=== PATIENT | female | born 1950 | race Caucasian/White ===

== ENCOUNTER 2016-05-09 13:10 | Emergency (ER) | payer MEDICAID ==
[~2016-05-09] VITALS: Ht 167.6 cm; Wt 133.4 kg
[~2016-05-09 13:10] MED LIST: ACETAMINOPHEN-1 EAC1 ORAL; ACETAMINOPHEN-1 EAC1 PO; ALBUTEROL SULF8.5 GM INH; BACTRIM DS TAB1 EAC1 ORAL; BACTRIM-DS1 EA PO; CIPRO500 MG PO; CLINDAMYCIN HC300 MG ORAL; DOXYCYCLINE MO100 MG ORAL; ELIMITE 5% CREA60 GM TOPIC; HYDROCHLOROTHIA25 MG PO; IBUPROFEN600 MG PO; KEFLEX500 MG ORAL; KEPPRA500 MG PO; LAMISIL15 GM EXT; MILK OF MA400 MG/51 ORAL; NKM; PEPTO-BISMOL262 MG PO; UNOBMED; [UNRECOGNIZED DRUG - SUPPLY]; [UNRECOGNIZED DRUG - SUPPLY]
[2016-05-09 13:29] VITALS: BP 109/50
[2016-05-09] MEDS ORDERED: GI Cocktail 120ml ORAL ONE (15:15)
[2016-05-09] MEDS ORDERED: KETOCONAZOLE15 GM TOP (16:06)
[2016-05-09 16:17] VITALS: BP 114/63
[2016-05-09 17:05] VITALS: BP 114/63
--- NOTE | 2016-05-09 20:19 | Emergency Room Report ---
History of Present Illness General Chief Complaint: Abdominal Pain Source: Patient Present Illness HPI 65-year-old female complains of abdominal pain for over 2 weeks. Associated symptoms include generalized abdominal pain that improves with mylanta. Patient was worked up at 4 different hospitals which included labs and CT within the past few days and was discharge with Rx for Tylenol #3 and Keflex which she has not filled. Patient has hx of lymphedema of bilateral LE in addition and is requesting her wounds be changed in addition to having pain medication for her abd pain. Patient states she does not want a workup, labs, IV, or CT scan and only wants something for her pain. Allergies: Coded Allergies: HALOPERIDOL (Verified Allergy, Unknown, 01/28/09) HALOPERIDOL LACTATE (Unverified Allergy, 11/30/12) VANCOMYCIN (Unverified Adverse Reaction, Intermediate, Shortness of Breath , 06/26/13) Patient History Limited by: medical condition Past Medical History: see triage record, old chart reviewed Last Menstrual Period: na Now: No Reviewed Nursing Documentation: PMH: Agreed, PSxH: Agreed Nursing Documentation-PMH Past Medical History: No History, Except For Hx Cardiac Problems: No - CHF, EDEMA Hx Hypertension: Yes Hx Pacemaker: No Hx Asthma: No Hx COPD: Yes - BRONCHITIS Hx Diabetes: No Hx Cancer: No Hx Gastrointestinal Problems: No Hx Dialysis: No History Of Psychiatric Problem: Yes Hx Cerebrovascular Accident: No Hx Seizures: No Review of Systems All Other Systems: negative except mentioned in HPI Physical Exam Vital Signs Date Time Temp Pulse Resp B/P Pulse Ox O2 Delivery O2 Flow Rate FiO2 05/09/16 13:28 98.1 78 18 109/50 99 Room Air Sp02 EP Interpretation: reviewed, normal General Appearance: no apparent distress, alert, GCS 15, non-toxic, obese Head: normocephalic, atraumatic Eyes: bilateral eye PERRL, bilateral eye normal inspection ENT: hearing grossly normal, normal pharynx, no angioedema, normal voice Neck: full range of motion, supple/symm/no masses Respiratory: chest non-tender, lungs clear, normal breath sounds, speaking full sentences Cardiovascular #1: regular rate, rhythm, no edema Gastrointestinal: normal bowel sounds, soft, non-distended, no guarding, no rebound, tenderness - non-specific, hernia - small nonincarcerated retractible periumbilical hernia, overweight Rectal: deferred Genitourinary: normal inspection, no CVA tenderness Musculoskeletal: back normal, gait/station normal, normal range of motion, non- tender, swelling - bilateral LE 3+ edema with lymphedema and chronic skin changes Neurologic: alert, oriented x3, responsive, motor strength/tone normal, sensory intact, speech normal Psychiatric: judgement/insight normal, memory normal, mood/affect normal, no suicidal/homicidal ideation Skin: normal color, warm/dry, well hydrated, rash - erythematous patch within skin fold of underbelly Lymphatic: other - lymphedema bilateral LE Medical Decision Making PA Attestation Dr. Rubin is my supervising physician with whom patient management has been discussed with. Diagnostic Impression: Primary Impression: Change of dressing Additional Impressions: Tinea cruris Abdominal pain Qualified Codes: R10.84 - Generalized abdominal pain [facility] ER Course Pt. presents to the ED c/o [] Ddx considered but are not limited to [] Vital signs: are WNL, pt. is afebrile H&PE are most consistent with [] ORDERS: none required at this time, the diagnosis is clinical ED INTERVENTIONS: none required at this time. DISCHARGE: At this time pt. is stable for d/c to home. Will provide printed patient care instructions, and any necessary prescriptions. Care plan and follow up instructions have been discussed with the patient prior to discharge. Last Vital Signs Date Time Temp Pulse Resp B/P Pulse Ox O2 Delivery O2 Flow Rate FiO2 05/09/16 17:05 98.1 82 18 114/63 99 Room Air Disposition: HOME, SELF-CARE Condition: Improved Scripts Ketoconazole* (NIZORAL*) 15 Gm Cream..g. 1 APPLIC TOP BID for 14 Days, #60 GM Prov: KATERINA LITTLE 05/09/16 Referrals: NON PHYSICIAN (PCP) Patient Instructions: Cellulitis, Lymphedema, Abdominal Pain, Adult KATERINA LITTLE May 09, 2016 20:17
== END 2016-05-09 17:05 | disposition home or self-care (01) ==
LOC: EMR 14:58
DX: Z48.00 Encounter for change or removal of nonsurgical wound dressing (principal); R10.84 Generalized abdominal pain; B35.6 Tinea cruris; I89.0 Lymphedema, not elsewhere classified; I50.9 Heart failure, unspecified; I10 Essential (primary) hypertension; J44.9 Chronic obstructive pulmonary disease, unspecified
CPT/HCPCS: 99283

== ENCOUNTER 2016-07-30 19:21 | Inpatient (IN) | payer MEDICAID ==
[~2016-07-30] VITALS: Ht 172.7 cm; Wt 136.1 kg
[~2016-07-30 19:21] MED LIST changes: +KETOCONAZOLE15 GM TOP
[2016-07-30] MEDS ORDERED: Morphine Sulfate 4mg/ml Inj IVP ONE (20:15)
[2016-07-30 20:16] LABS: BASOPHILS % (AUTO) 0.9 % (0.0-2.0); EOSINOPHILS % (AUTO) 0.9 % (0.0-3.0); MEAN CORPUSCULAR HEMOGLOBIN 26.8 PG (27.0-31.0); MEAN CORPUSCULAR HGB CONC 33.5 G/DL (32.0-36.0); MEAN CORPUSCULAR VOLUME 80 FL (80-99); MEAN PLATELET VOLUME 6.7 FL (6.5-10.1); MONOCYTES % (AUTO) 6.6 % (1.0-10.0); NEUTROPHILS % (AUTO) 67.6 % (45.0-75.0); PLATELET COUNT 209 K/UL (150-450); RED BLOOD COUNT 3.62 M/UL (4.20-5.40); RED CELL DISTRIBUTION WIDTH 16.9 % (11.6-14.8)
[2016-07-30 20:30] LABS: TROPONIN I < 0.30 ng/mL (<=0.30)
[2016-07-30 20:33] LABS: ALANINE AMINOTRANSFERASE 6 U/L (3-33); ALBUMIN/GLOBULIN RATIO 0.8 (1.0-2.7); ANION GAP 14 (5-15); ASPARTATE AMINO TRANSFERASE 9 U/L (5-40); CALCIUM 9.2 mg/dL (8.6-10.2); CARBON DIOXIDE 27 mEQ/L (20-30); CHLORIDE 92 mEQ/L (98-107); CREATININE 0.9 mg/dL (0.5-0.9); GLOMERULAR FILTRATION RATE > 60 mL/min (>60); HEMOLYSIS 1; LIPASE 14 U/L (< 60); POTASSIUM 3.6 mEQ/L (3.4-4.9); SODIUM 133 mEQ/L (135-145); TOTAL PROTEIN 6.7 g/dL (6.6-8.7)
[2016-07-30 20:43] LABS: CKMB < 1.5 ng/mL (< 3.8)
[2016-07-30 20:51] VITALS: BP 116/75
[2016-07-30] MEDS ORDERED: Enalaprilat 2.5mg/2ml Inj IV PRN (22:00)
[2016-07-30] MEDS ORDERED: Nitroglycerin Subl 0.4mg tab (Bottle Of 25) SL PRN (22:00)
[2016-07-30] MEDS ORDERED: Diltiazem 25mg/5ml IV PRN (22:00)
[2016-07-30] MEDS ORDERED: Ketorolac 30mg Inj IV PRN (22:00)
[2016-07-30] MEDS ORDERED: DuoNeb 0.5-3(2.5)mg/3ml neb HHN PRN (22:00)
[2016-07-30] MEDS ORDERED: Aspirin Baby 81mg ORAL ONE (22:15)
--- NOTE | 2016-07-30 22:27 | Emergency Room Report ---
History of Present Illness General Chief Complaint: Chest Pain Source: Patient, EMS Present Illness HPI 65-year-old female presents ED complaining of chest pain. States pain is midsternal, sharp, 8/10, nonradiating. No other aggravating or relieving factors. Patient was given aspirin and nitro by EMS. States it only helped somewhat. Still has chest pain. Denies shortness of breath. Denies fevers or chills or cough. [place] [facility] [place] [facility] [place] for psychiatric complaints. [facility] No other aggravating or relieving factors. Denies any other associated symptom Allergies: Coded Allergies: HALOPERIDOL (Verified Allergy, Unknown, 01/28/09) HALOPERIDOL LACTATE (Unverified Allergy, Unknown, 07/30/16) VANCOMYCIN (Unverified Adverse Reaction, Intermediate, Shortness of Breath , 06/26/13) Patient History Past Medical History: HTN, COPD, psych hx Pertinent Family History: none Social History: Denies: alcohol use, drug use, smoking Now: No Immunizations: UTD Reviewed Nursing Documentation: PMH: Agreed, PSxH: Agreed Nursing Documentation-PMH Hx Hypertension: Yes Hx Pacemaker: No Hx Asthma: No Hx COPD: Yes Hx Diabetes: No Hx Cancer: No Hx Gastrointestinal Problems: No Hx Dialysis: No History Of Psychiatric Problem: Yes - DEPRESSION Hx Cerebrovascular Accident: No Hx Seizures: No Review of Systems All Other Systems: negative except mentioned in HPI Physical Exam Vital Signs Date Time Temp Pulse Resp B/P Pulse Ox O2 Delivery O2 Flow Rate FiO2 07/30/16 19:18 84 18 135/86 98 Room Air 07/30/16 19:45 3.0 Sp02 EP Interpretation: reviewed, normal General Appearance: no apparent distress, alert, GCS 15, non-toxic, obese Head: normocephalic, atraumatic Eyes: bilateral eye PERRL, bilateral eye normal inspection ENT: hearing grossly normal, normal pharynx, no angioedema, normal voice Neck: full range of motion, supple/symm/no masses Respiratory: chest non-tender, lungs clear, normal breath sounds, speaking full sentences Cardiovascular #1: regular rate, rhythm, no edema Cardiovascular #2: 2+ carotid (R), 2+ carotid (L), 2+ radial (R), 2+ radial (L) , 2+ dorsalis pedis (R), 2+ dorsalis pedis (L) Gastrointestinal: normal bowel sounds, non tender, soft, non-distended, no guarding, no rebound Rectal: deferred Genitourinary: normal inspection, no CVA tenderness Musculoskeletal: back normal, gait/station normal, normal range of motion, non- tender Neurologic: alert, oriented x3, responsive, motor strength/tone normal, sensory intact, speech normal Psychiatric: judgement/insight normal, memory normal, mood/affect normal, no suicidal/homicidal ideation Reflexes: 3+ bicep (R), 3+ bicep (L), 3+ tricep (R), 3+ tricep (L), 3+ knee (R) , 3+ knee (L) Skin: normal color, no rash, warm/dry, well hydrated Lymphatic: no adenopathy Medical Decision Making Diagnostic Impression: Primary Impression: ACS (acute coronary syndrome) ER Course Hospital Course 65-year-old female presents ED complaining of chest pain Differential diagnoses include: NM/unstable angina, contusion, muscle strain, PTX, rib fracture Clinical course Patient placed on stretcher. on post anesthesia room nurse. After initial history and physical I ordered labs, EKG, chest x-ray, ASA, morphine labs reviewed- no leukocytosis, hb/hct stable, electrolytes ok, trop negative EKG - NSR, no acute changes Chest x-ray- unremarkable Case discussed with Dr. Clarke and he agreed to accept the patient to his service for further care and support I. I feel this is a highly complex case requiring extensive working including EKG/Rhythm strip, Xray/CT/US, Blood/urine lab work, repeat exams while in ED, and administration of strong opiates/narcotics for pain control, admission to hospital or close patient follow up. Diagnosis - ACS admitted to telemetry in serious condition Labs Test 07/30/16 19:45 White Blood Count 6.0 K/UL (4.8-10.8) Red Blood Count 3.62 M/UL (4.20-5.40) Hemoglobin 9.7 G/DL (12.0-16.0) Hematocrit 29.0 % (37.0-47.0) Mean Corpuscular Volume 80 FL (80-99) Mean Corpuscular Hemoglobin 26.8 PG (27.0-31.0) Mean Corpuscular Hemoglobin Concent 33.5 G/DL (32.0-36.0) Red Cell Distribution Width 16.9 % (11.6-14.8) Platelet Count 209 K/UL (150-450) Mean Platelet Volume 6.7 FL (6.5-10.1) Neutrophils (%) (Auto) 67.6 % (45.0-75.0) Lymphocytes (%) (Auto) 24.0 % (20.0-45.0) Monocytes (%) (Auto) 6.6 % (1.0-10.0) Eosinophils (%) (Auto) 0.9 % (0.0-3.0) Basophils (%) (Auto) 0.9 % (0.0-2.0) Sodium Level 133 mEQ/L (135-145) Potassium Level 3.6 mEQ/L (3.4-4.9) Chloride Level 92 mEQ/L (98-107) Carbon Dioxide Level 27 mEQ/L (20-30) Anion Gap 14 (5-15) Blood Urea Nitrogen 16 mg/dL (7-23) Creatinine 0.9 mg/dL (0.5-0.9) Estimat Glomerular Filtration Rate > 60 mL/min (>60) Glucose Level 117 mg/dL (74-106) Calcium Level 9.2 mg/dL (8.6-10.2) Total Bilirubin 0.4 mg/dL (0.0-1.2) Aspartate Amino Transf (AST/SGOT) 9 U/L (5-40) Alanine Aminotransferase (ALT/SGPT) 6 U/L (3-33) Alkaline Phosphatase 157 U/L (35-104) Total Creatine Kinase 7 U/L (26-140) Creatine Kinase MB < 1.5 ng/mL (< 3.8) Creatine Kinase MB Relative Index Troponin I < 0.30 ng/mL (<=0.30) Total Protein 6.7 g/dL (6.6-8.7) Albumin 3.0 g/dL (3.5-5.2) Globulin 3.7 g/dL Albumin/Globulin Ratio 0.8 (1.0-2.7) Lipase 14 U/L (< 60) EKG Diagnostic Results Rate: normal Rhythm: NSR ST Segments: no acute changes ASA given to the pt in ED: Yes Rhythm Strip Diag. Results EP Interpretation: yes Rhythm: NSR, no PVC's, no ectopy Chest X-Ray Diagnostic Results EP Interpretation: Yes Findings: no consolidation, no effusion, no pneumothorax, no acute cardiopulmonary disease Number of Views: 1 Last Vital Signs Date Time Temp Pulse Resp B/P Pulse Ox O2 Delivery O2 Flow Rate FiO2 07/30/16 20:51 75 8 116/75 98 Nasal Cannula 3.0 Status: improved Disposition: ADMITTED INPATIENT Condition: Serious Referrals: [employer] [facility],REFERJEFERSON (PCP) GLORY CAMEJO M.D. Jul 30, 2016 22:27
[2016-07-31] VITALS (9 sets, daily range): BP systolic 99–151; BP diastolic 50–81
[2016-07-31] MEDS ORDERED: CARAFATE1 G1 ORAL (01:11)
[2016-07-31] MEDS ORDERED: CARDIZEM60 MG ORAL (01:11)
[2016-07-31] MEDS ORDERED: HYDRALAZINE HCL10 MG ORAL (01:11)
[2016-07-31] MEDS ORDERED: LORAZEPAM1 MG ORAL (01:12)
[2016-07-31] MEDS ORDERED: LEXAPRO10 MG ORAL (01:12)
[2016-07-31] MEDS: Morphine Sulfate 2mg/ml Inj IVP PRN ×5 (01:35→22:52)
[2016-07-31] MEDS ORDERED: Morphine Sulfate 2mg/ml Inj ONE (08:24)
[2016-07-31] MEDS: Aspirin Baby 81mg ORAL SCH ×2 (10:43→10:49)
[2016-07-31] MEDS: Heparin 5000 units/ml inj SUBQ SCH ×2 (10:46→21:00)
--- NOTE | 2016-07-31 12:08 | History and Physical ---
History of Present Illness General Date patient seen: Jul 31, 2016 Reason for Hospitalization: Chest Pain Present Illness HPI 65-year-old female with hx of COPD, CHF, elephantiasis of both lower extremities , nusing home resident presented to ED complaining of chest pain. Patient was given aspirin and nitro by EMS. The pain is midsternal, sharp, 8/10, nonradiating. No other aggravating or relieving factors. She is admitted to telemetry to rule out ACS Allergies: Coded Allergies: HALOPERIDOL (Verified Allergy, Unknown, 01/28/09) HALOPERIDOL LACTATE (Unverified Allergy, Unknown, 07/30/16) VANCOMYCIN (Unverified Adverse Reaction, Intermediate, Shortness of Breath , 06/26/13) Medication History Scheduled Diltiazem Hcl* (Cardizem*), 60 MG ORAL EVERY 8 HOURS, (Reported) Escitalopram Oxalate* (Lexapro*), 10 MG ORAL DAILY, (Reported) Hydralazine Hcl* (Hydralazine Hcl*), 10 MG ORAL EVERY 6 HOURS, (Reported) Lorazepam* (Lorazepam*), 1 MG ORAL THREE TIMES A DAY, (Reported) No Known Medications* (NKM - No Known Medications*), 0 ., (Reported) Sucralfate* (Carafate*), 1 GM ORAL FOUR TIMES A DAY, (Reported) Discontinued Medications Albuterol Sulfate* (Albuterol Sulfate Mdi*), 2 PUFF INH Q6H Discontinued Reason: Therapy completed Cephalexin* (Keflex*), 500 MG ORAL Q6H Discontinued Reason: Therapy completed Clindamycin Hcl (Clindamycin Hcl), 300 MG ORAL THREE TIMES A DAY Discontinued Reason: Therapy completed Ketoconazole* (Nizoral*), 1 APPLIC TOP BID Discontinued Reason: Therapy completed Terbinafine (Lamisil At), 15 GM EXT DAILY Discontinued Reason: Therapy completed Trimethoprim/Sulfamethoxazole 160/800* (Bactrim Ds Tablet*), 1 TAB ORAL Q12H Discontinued Reason: Therapy completed [taqueria wrap] Discontinued Reason: Therapy completed [medical tape] Discontinued Reason: Therapy completed Patient History Healthcare decision maker Resuscitation status Full Code Advanced Directive on File Past Medical/Surgical History Past Medical/Surgical History: (1) Lymphedema (2) Obesity (3) Essential hypertension Review of Systems Constitutional: Reports: malaise, weakness Physical Exam General Appearance: WD/WN Lines, tubes and drains: peripheral, central line HEENT: normocephalic, anicteric Neck: non-tender, supple Respiratory/Chest: chest wall non-tender, lungs clear Cardiovascular/Chest: normal peripheral pulses, regular rhythm Abdomen: normal bowel sounds, soft Extremities: severe edema - massive edema of both legs Last 24 Hour Vital Signs Date Time Temp Pulse Resp B/P Pulse Ox O2 Delivery O2 Flow Rate FiO2 07/31/16 11:18 98.3 85 20 130/73 98 Nasal Cannula 3.0 07/31/16 09:22 97.2 75 18 129/75 97 Room Air 07/31/16 07:42 98.7 71 11 107/67 100 Nasal Cannula 3.0 07/31/16 07:05 98.7 71 11 107/67 100 Nasal Cannula 3.0 07/31/16 05:43 98.7 62 11 126/72 98 Nasal Cannula 3.0 07/31/16 03:30 98.7 62 11 127/75 98 Nasal Cannula 3.0 07/31/16 02:05 98.7 07/31/16 01:42 62 8 116/75 98 Nasal Cannula 3.0 07/31/16 00:00 98.7 75 11 134/75 98 Nasal Cannula 3.0 07/30/16 20:51 75 8 116/75 98 Nasal Cannula 3.0 07/30/16 19:45 76 8 Nasal Cannula 3.0 07/30/16 19:18 84 18 135/86 98 Room Air Intake and Output 07/30/16 07/31/16 19:00 07:00 Intake Total 0 ml Balance 0 ml Intake Oral 0 ml Laboratory Tests Test 07/30/16 19:45 White Blood Count 6.0 K/UL (4.8-10.8) Red Blood Count 3.62 M/UL (4.20-5.40) L Hemoglobin 9.7 G/DL (12.0-16.0) L Hematocrit 29.0 % (37.0-47.0) L Mean Corpuscular Volume 80 FL (80-99) Mean Corpuscular Hemoglobin 26.8 PG (27.0-31.0) L Mean Corpuscular Hemoglobin Concent 33.5 G/DL (32.0-36.0) Red Cell Distribution Width 16.9 % (11.6-14.8) H Platelet Count 209 K/UL (150-450) Mean Platelet Volume 6.7 FL (6.5-10.1) Neutrophils (%) (Auto) 67.6 % (45.0-75.0) Lymphocytes (%) (Auto) 24.0 % (20.0-45.0) Monocytes (%) (Auto) 6.6 % (1.0-10.0) Eosinophils (%) (Auto) 0.9 % (0.0-3.0) Basophils (%) (Auto) 0.9 % (0.0-2.0) Sodium Level 133 mEQ/L (135-145) L Potassium Level 3.6 mEQ/L (3.4-4.9) Chloride Level 92 mEQ/L (98-107) L Carbon Dioxide Level 27 mEQ/L (20-30) Anion Gap 14 (5-15) Blood Urea Nitrogen 16 mg/dL (7-23) Creatinine 0.9 mg/dL (0.5-0.9) Estimat Glomerular Filtration Rate > 60 mL/min (>60) Glucose Level 117 mg/dL (74-106) H Calcium Level 9.2 mg/dL (8.6-10.2) Total Bilirubin 0.4 mg/dL (0.0-1.2) Aspartate Amino Transf (AST/SGOT) 9 U/L (5-40) Alanine Aminotransferase (ALT/SGPT) 6 U/L (3-33) Alkaline Phosphatase 157 U/L (35-104) H Total Creatine Kinase 7 U/L (26-140) L Creatine Kinase MB < 1.5 ng/mL (< 3.8) Creatine Kinase MB Relative Index Troponin I < 0.30 ng/mL (<=0.30) Total Protein 6.7 g/dL (6.6-8.7) Albumin 3.0 g/dL (3.5-5.2) L Globulin 3.7 g/dL Albumin/Globulin Ratio 0.8 (1.0-2.7) L Lipase 14 U/L (< 60) Height (Feet): 5 Height (Inches): 8.00 Weight (Pounds): 300 Medications Current Medications Medications (Trade) Dose Ordered Sig/Shiraz Route PRN Reason Start Time Stop Time Status Last Admin Dose Admin Acetaminophen (Tylenol) 650 mg Q4H PRN ORAL FEVER 07/30/16 22:00 08/29/16 21:59 Albuterol/ Ipratropium (DuoNeb 0.5-3(2.5)mg/3ml) 3 ml EVERY 4 HOURS PRN HHN Shortness of Breath 07/30/16 22:00 08/04/16 21:59 Aspirin (ASA) 162 mg DAILY ORAL 07/30/16 22:30 08/29/16 22:29 07/31/16 10:49 Diltiazem HCl (Cardizem) 10 mg EVERY HOUR PRN IV heart rate more than 120, 07/30/16 22:00 08/29/16 21:59 Enalaprilat (Vasotec) 2.5 mg EVERY 6 HOURS PRN IV sbp more than 160 07/30/16 22:00 08/29/16 21:59 Heparin Sodium (Porcine) (Heparin 5000 units/ml) 5,000 units EVERY 12 HOURS SUBQ 07/30/16 23:00 08/29/16 22:59 07/31/16 10:46 Ketorolac Tromethamine (Toradol 30mg) 30 mg Q6HR PRN IV moderate pain ( 4-6) 07/30/16 22:00 08/04/16 21:59 Morphine Sulfate (Morphine Sulfate) 2 mg EVERY 4 HOURS PRN IVP severe Pain (Pain Scale 7-10) 07/30/16 22:00 08/06/16 21:59 07/31/16 08:27 Nitroglycerin (Ntg) 0.4 mg Q5M PRN SL Prn Chest Pain 07/30/16 22:00 08/29/16 21:59 Ondansetron HCl (Zofran) 4 mg Q6H PRN IVP Nausea & Vomiting 07/30/16 22:00 08/29/16 21:59 07/31/16 10:43 Pantoprazole (Protonix) 40 mg DAILY ORAL 07/31/16 09:00 08/30/16 08:59 07/31/16 10:43 Polyethylene Glycol (Miralax) 17 gm DAILYPRN PRN ORAL Constipation 07/30/16 22:00 08/29/16 21:59 Temazepam (Restoril) 15 mg HSPRN PRN ORAL Insomnia 07/30/16 22:00 08/06/16 21:59 Assessment/Plan Problem List: (1) ACS (acute coronary syndrome) ICD Codes: I24.9 - Acute ischemic heart disease, unspecified SNOMED: 380368265 (2) Open wound of foot (3) Lymphedema (4) Chronic ulcer of leg ICD Codes: L97.909 - Non-prs chronic ulc unsp prt of unsp low leg w unsp severity SNOMED: 69903163 (5) Essential hypertension ICD Codes: I10 - Essential (primary) hypertension SNOMED: 36311846 Assessment/Plan serial ekg, troponin, cardiology wound care podiatry psychiatry RIC GONZALES Jul 31, 2016 12:07
[2016-07-31 15:59] LABS: CRP QUANT 9.7 mg/dL (< 0.5)
[2016-07-31 16:09] LABS: THYROID STIMULATING HORMONE 0.949 uIU/mL (0.300-4.500)
[2016-07-31 16:21] LABS: TROPONIN I < 0.30 ng/mL (<=0.30)
[2016-07-31 17:49] LABS: BASOPHILS % (AUTO) 0.8 % (0.0-2.0); EOSINOPHILS % (AUTO) 1.4 % (0.0-3.0); LYMPHOCYTES % (AUTO) 21.9 % (20.0-45.0); MEAN CORPUSCULAR HEMOGLOBIN 26.9 PG (27.0-31.0); MEAN CORPUSCULAR HGB CONC 32.7 G/DL (32.0-36.0); MEAN CORPUSCULAR VOLUME 82 FL (80-99); MEAN PLATELET VOLUME 6.8 FL (6.5-10.1); MONOCYTES % (AUTO) 4.8 % (1.0-10.0); NEUTROPHILS % (AUTO) 71.1 % (45.0-75.0); PLATELET COUNT 209 K/UL (150-450); RED BLOOD COUNT 3.39 M/UL (4.20-5.40); RED CELL DISTRIBUTION WIDTH 17.4 % (11.6-14.8); WHITE BLOOD COUNT 5.2 K/UL (4.8-10.8)
[2016-07-31] MEDS: Docusate 250mg cap ORAL SCH (18:06)
--- NOTE | 2016-07-31 18:26 | Cardiology Progress Note ---
Assessment/Plan Assessment/Plan [id number] Objective Last 24 Hour Vital Signs Date Time Temp Pulse Resp B/P Pulse Ox O2 Delivery O2 Flow Rate FiO2 07/31/16 15:30 96.3 65 18 99/50 100 Nasal Cannula 3.0 07/31/16 12:00 71 07/31/16 11:18 98.3 85 20 130/73 98 Nasal Cannula 3.0 07/31/16 09:22 97.2 75 18 129/75 97 Room Air 07/31/16 09:19 74 07/31/16 07:42 98.7 71 11 107/67 100 Nasal Cannula 3.0 07/31/16 07:05 98.7 71 11 107/67 100 Nasal Cannula 3.0 07/31/16 05:43 98.7 62 11 126/72 98 Nasal Cannula 3.0 07/31/16 03:30 98.7 62 11 127/75 98 Nasal Cannula 3.0 07/31/16 02:05 98.7 07/31/16 01:42 62 8 116/75 98 Nasal Cannula 3.0 07/31/16 00:00 98.7 75 11 134/75 98 Nasal Cannula 3.0 07/30/16 20:51 75 8 116/75 98 Nasal Cannula 3.0 07/30/16 19:45 76 8 Nasal Cannula 3.0 07/30/16 19:18 84 18 135/86 98 Room Air Intake and Output 07/30/16 07/31/16 19:00 07:00 Intake Total 0 ml Balance 0 ml Intake Oral 0 ml Laboratory Tests Test 07/30/16 19:45 07/31/16 13:04 07/31/16 14:38 White Blood Count 6.0 K/UL (4.8-10.8) 5.2 K/UL (4.8-10.8) Red Blood Count 3.62 M/UL (4.20-5.40) L 3.39 M/UL (4.20-5.40) L Hemoglobin 9.7 G/DL (12.0-16.0) L 9.1 G/DL (12.0-16.0) L Hematocrit 29.0 % (37.0-47.0) L 27.8 % (37.0-47.0) L Mean Corpuscular Volume 80 FL (80-99) 82 FL (80-99) Mean Corpuscular Hemoglobin 26.8 PG (27.0-31.0) L 26.9 PG (27.0-31.0) L Mean Corpuscular Hemoglobin Concent 33.5 G/DL (32.0-36.0) 32.7 G/DL (32.0-36.0) Red Cell Distribution Width 16.9 % (11.6-14.8) H 17.4 % (11.6-14.8) H Platelet Count 209 K/UL (150-450) 209 K/UL (150-450) Mean Platelet Volume 6.7 FL (6.5-10.1) 6.8 FL (6.5-10.1) Neutrophils (%) (Auto) 67.6 % (45.0-75.0) 71.1 % (45.0-75.0) Lymphocytes (%) (Auto) 24.0 % (20.0-45.0) 21.9 % (20.0-45.0) Monocytes (%) (Auto) 6.6 % (1.0-10.0) 4.8 % (1.0-10.0) Eosinophils (%) (Auto) 0.9 % (0.0-3.0) 1.4 % (0.0-3.0) Basophils (%) (Auto) 0.9 % (0.0-2.0) 0.8 % (0.0-2.0) Sodium Level 133 mEQ/L (135-145) L Potassium Level 3.6 mEQ/L (3.4-4.9) Chloride Level 92 mEQ/L (98-107) L Carbon Dioxide Level 27 mEQ/L (20-30) Anion Gap 14 (5-15) Blood Urea Nitrogen 16 mg/dL (7-23) Creatinine 0.9 mg/dL (0.5-0.9) Estimat Glomerular Filtration Rate > 60 mL/min (>60) Glucose Level 117 mg/dL (74-106) H Calcium Level 9.2 mg/dL (8.6-10.2) Total Bilirubin 0.4 mg/dL (0.0-1.2) Aspartate Amino Transf (AST/SGOT) 9 U/L (5-40) Alanine Aminotransferase (ALT/SGPT) 6 U/L (3-33) Alkaline Phosphatase 157 U/L (35-104) H Total Creatine Kinase 7 U/L (26-140) L Creatine Kinase MB < 1.5 ng/mL (< 3.8) Creatine Kinase MB Relative Index Troponin I < 0.30 ng/mL (<=0.30) < 0.30 ng/mL (<=0.30) Total Protein 6.7 g/dL (6.6-8.7) Albumin 3.0 g/dL (3.5-5.2) L Globulin 3.7 g/dL Albumin/Globulin Ratio 0.8 (1.0-2.7) L Lipase 14 U/L (< 60) Erythrocyte Sedimentation Rate Pending Reticulocyte Count Pending Prothrombin Time 10.0 SEC (9.30-11.50) Prothromb Time International Ratio 1.0 (0.9-1.1) Activated Partial Thromboplast Time 25 SEC (23-33) Iron Level 22 ug/dL (37-145) L Total Iron Binding Capacity 220 ug/dL (250-400) L Percent Iron Saturation 10 % (15-50) L Unsaturated Iron Binding 198 ug/dL (112-346) Lactate Dehydrogenase 133 U/L (135-230) L C-Reactive Protein, Quantitative 9.7 mg/dL (< 0.5) H Triglycerides Level 174 mg/dL (< 150) H Cholesterol Level 109 mg/dL (< 200) LDL Cholesterol 47 mg/dL (60-99) L HDL Cholesterol 27 mg/dL (> 60) Cholesterol/HDL Ratio 4.0 (3.3-4.4) Carcinoembryonic Antigen 0.9 ng/mL Vitamin B12 Level 499 pg/mL (211-946) Folate Pending Thyroid Stimulating Hormone (TSH) 0.949 uIU/mL (0.300-4.500) SJ BARRERA Jul 31, 2016 18:26
--- NOTE | 2016-07-31 19:48 | Consultation ---
Consult Note Consult Note PODIATRY CONSULTATION DATE: 07/31/16 REASON FOR CONSULT: Bilateral lower extremity edema COVERING FOR: Diego Osborn DPM HISTORY OF PRESENT ILLNESS: Patient is a 65 year old female transferred from [facility] for chest pain. Patient states history of chronic lymphedema. No reports of nausea, vomiting, fevers, or chills. Patient states no acute exacerbation of the lymphedema. She does not wear compression stockings PAST MEDICAL HISTORY: COPD, CHF, CHRONIC BILATERAL LOWER EXTREMITY LYMPHEDEMA SOCIAL, FAMILY, AND SURGICAL HISTORY: Patient is currently agitated and refuses to answer any more questions Allergies: Coded Allergies: HALOPERIDOL (Verified Allergy, Unknown, 01/28/09) HALOPERIDOL LACTATE (Unverified Allergy, Unknown, 07/30/16) VANCOMYCIN (Unverified Adverse Reaction, Intermediate, Shortness of Breath , 06/26/13) Objective Objective Exam Last 24 Hour Vital Signs Date Time Temp Pulse Resp B/P Pulse Ox O2 Delivery O2 Flow Rate FiO2 07/31/16 15:30 96.3 65 18 99/50 100 Nasal Cannula 3.0 07/31/16 12:00 71 07/31/16 11:18 98.3 85 20 130/73 98 Nasal Cannula 3.0 07/31/16 09:22 97.2 75 18 129/75 97 Room Air 07/31/16 09:19 74 07/31/16 07:42 98.7 71 11 107/67 100 Nasal Cannula 3.0 07/31/16 07:05 98.7 71 11 107/67 100 Nasal Cannula 3.0 07/31/16 05:43 98.7 62 11 126/72 98 Nasal Cannula 3.0 07/31/16 03:30 98.7 62 11 127/75 98 Nasal Cannula 3.0 07/31/16 02:05 98.7 07/31/16 01:42 62 8 116/75 98 Nasal Cannula 3.0 07/31/16 00:00 98.7 75 11 134/75 98 Nasal Cannula 3.0 07/30/16 20:51 75 8 116/75 98 Nasal Cannula 3.0 07/30/16 19:45 76 8 Nasal Cannula 3.0 Laboratory Tests Test 07/30/16 19:45 07/31/16 13:04 07/31/16 14:38 White Blood Count 6.0 K/UL (4.8-10.8) 5.2 K/UL (4.8-10.8) Red Blood Count 3.62 M/UL (4.20-5.40) L 3.39 M/UL (4.20-5.40) L Hemoglobin 9.7 G/DL (12.0-16.0) L 9.1 G/DL (12.0-16.0) L Hematocrit 29.0 % (37.0-47.0) L 27.8 % (37.0-47.0) L Mean Corpuscular Volume 80 FL (80-99) 82 FL (80-99) Mean Corpuscular Hemoglobin 26.8 PG (27.0-31.0) L 26.9 PG (27.0-31.0) L Mean Corpuscular Hemoglobin Concent 33.5 G/DL (32.0-36.0) 32.7 G/DL (32.0-36.0) Red Cell Distribution Width 16.9 % (11.6-14.8) H 17.4 % (11.6-14.8) H Platelet Count 209 K/UL (150-450) 209 K/UL (150-450) Mean Platelet Volume 6.7 FL (6.5-10.1) 6.8 FL (6.5-10.1) Neutrophils (%) (Auto) 67.6 % (45.0-75.0) 71.1 % (45.0-75.0) Lymphocytes (%) (Auto) 24.0 % (20.0-45.0) 21.9 % (20.0-45.0) Monocytes (%) (Auto) 6.6 % (1.0-10.0) 4.8 % (1.0-10.0) Eosinophils (%) (Auto) 0.9 % (0.0-3.0) 1.4 % (0.0-3.0) Basophils (%) (Auto) 0.9 % (0.0-2.0) 0.8 % (0.0-2.0) Sodium Level 133 mEQ/L (135-145) L Potassium Level 3.6 mEQ/L (3.4-4.9) Chloride Level 92 mEQ/L (98-107) L Carbon Dioxide Level 27 mEQ/L (20-30) Anion Gap 14 (5-15) Blood Urea Nitrogen 16 mg/dL (7-23) Creatinine 0.9 mg/dL (0.5-0.9) Estimat Glomerular Filtration Rate > 60 mL/min (>60) Glucose Level 117 mg/dL (74-106) H Calcium Level 9.2 mg/dL (8.6-10.2) Total Bilirubin 0.4 mg/dL (0.0-1.2) Aspartate Amino Transf (AST/SGOT) 9 U/L (5-40) Alanine Aminotransferase (ALT/SGPT) 6 U/L (3-33) Alkaline Phosphatase 157 U/L (35-104) H Total Creatine Kinase 7 U/L (26-140) L Creatine Kinase MB < 1.5 ng/mL (< 3.8) Creatine Kinase MB Relative Index Troponin I < 0.30 ng/mL (<=0.30) < 0.30 ng/mL (<=0.30) Total Protein 6.7 g/dL (6.6-8.7) Albumin 3.0 g/dL (3.5-5.2) L Globulin 3.7 g/dL Albumin/Globulin Ratio 0.8 (1.0-2.7) L Lipase 14 U/L (< 60) Erythrocyte Sedimentation Rate 120 MM/HR (0-30) H Reticulocyte Count 2.0 % (0.0-2.0) Prothrombin Time 10.0 SEC (9.30-11.50) Prothromb Time International Ratio 1.0 (0.9-1.1) Activated Partial Thromboplast Time 25 SEC (23-33) Iron Level 22 ug/dL (37-145) L Total Iron Binding Capacity 220 ug/dL (250-400) L Percent Iron Saturation 10 % (15-50) L Unsaturated Iron Binding 198 ug/dL (112-346) Lactate Dehydrogenase 133 U/L (135-230) L C-Reactive Protein, Quantitative 9.7 mg/dL (< 0.5) H Triglycerides Level 174 mg/dL (< 150) H Cholesterol Level 109 mg/dL (< 200) LDL Cholesterol 47 mg/dL (60-99) L HDL Cholesterol 27 mg/dL (> 60) Cholesterol/HDL Ratio 4.0 (3.3-4.4) Carcinoembryonic Antigen 0.9 ng/mL Vitamin B12 Level 499 pg/mL (211-946) Folate Pending Thyroid Stimulating Hormone (TSH) 0.949 uIU/mL (0.300-4.500) PHYSICAL EXAM: patient is currently agitated and refusing full physical exam. Therefore, physical exam was limited DERM: No open wounds noted. Hyperkeratosis and hyperpigmentation of bilateral lower extremities. Elongated toenails 1-5 bilaterally NEURO: Unable to assess sensation VASC: Bilateral lower extremities with severe lymphedema MSK: Unable to assess muscle strength Assessment/Plan BILATERAL LOWER EXTREMITY CHRONIC LYMPHEDEMA. Patient was agitated and refused full physical exam. There appeared to be severe lymphadema and hyperpigmented hyperkeratosis of bilateral lower extremities. No open wounds. Patient does not use compression stockings. Vascular studies are ordered and pending. If no DVT patient will benefit from compression therapy. Patient also appears to have poor hygiene of bilateral lower extremities. Cleanse bilateral lower extremities and apply A&D ointment. Offload heels if patient remains in bed for the majority of the day. Patient had dytrophic elongated toenails but did not want them trimmed at this time. Berny Watkins DPM Jul 31, 2016 19:48
[2016-07-31] MEDS: Miralax 17gm pkt ORAL PRN (22:46)
[2016-07-31 22:49] LABS: TROPONIN I < 0.30 ng/mL (<=0.30)
[2016-08-01] VITALS: BP 150/97
--- NOTE | 2016-08-01 00:59 | Consultation ---
DATE OF CONSULTATION: 07/31/2016 CARDIOLOGY CONSULTATION REFERRING PHYSICIAN: Lilibeth Clarke M.D. REASON FOR REFERRAL: Chest pain. HISTORY OF PRESENT ILLNESS: This is a 65-year-old female with multiple medical problems. The patient is somewhat of a poor historian, who [facility], presented to the [facility] because of complaints of chest pain and shortness of breath. She indicates the pain is across the chest, upper and mid abdomen as well as the back. It is been present now for the past one hour, but she has had this pain on prior occasions. It does get worse when she takes a deep breath, cough, or touching the area. She has no shortness of breath. No PND. No orthopnea. No palpitations or dizziness. PAST MEDICAL HISTORY: According to the records from [facility], it is positive history of congestive heart failure, essential hypertension, superficial bruising, unsteadiness of the feet, edema, sepsis, secondary cellulitis, bronchitis, and chronic obstructive pulmonary disease. SOCIAL HISTORY: She smoked before, but does not at the present time and does not drink alcoholic beverages. ALLERGIES: She is allergic to Haldol. REVIEW OF SYSTEMS: Gastrointestinal: She denies any nausea, vomiting, or diarrhea. Does have some abdominal pain. Genitourinary: Does not have discomfort on urination. Pulmonary: Occasional coughing and wheezing. Constitutional: No fevers, chills, or night sweats. Neurological: Negative. PHYSICAL EXAMINATION: GENERAL: Shows to be morbidly obese elderly female, in no respiratory distress, rather unkempt. NECK: Supple. No jugular venous distention. LUNGS: Clear to auscultation and percussion. CARDIAC: S1 is normal. S2 is normal. Regular rate and rhythm. No heaves. No thrills. No gallops. No rubs are noted. ABDOMEN: Soft and obese. Positive bowel sounds. There is tenderness to palpation of the chest wall and upper abdomen. No guarding. No rigidity. EXTREMITIES: There are chronic venous stasis changes, skin thickening, and of the lower extremities of significant degree. NEUROLOGICAL: She is awake, alert, and responsive, in no apparent respiratory distress. LABORATORY VALUES: White count of 5.3, hemoglobin 9.1, and platelet count of 209,000. Troponins are negative on two separate occasions since yesterday and her sodium at the time of admission 133,000, potassium 3.6, chloride 92, bicarbonate of 27, BUN of 16, creatinine 0.9, and glucose of 117. ProBNP was not measured and lipase was 14. Coagulations, INR of 1.0 yesterday and PTT of 25. Chest x-ray has not been performed or available for review yet. The patient's electrocardiogram shows normal sinus rhythm, delay in R-wave progression, may be lead placement, and/or obesity or an old anterior infarction that need to be further evaluated. ASSESSMENT: 1. Chest pain with history of the same. No evidence of myonecrosis. No ST-segment changes to suggest coronary syndrome. 2. Obesity. 3. Reported history of congestive heart failure. 4. Reported history of essential hypertension. 5. Chronic obstructive pulmonary disease history. 6. Edema. 7. History of cellulitis. PLAN: This patient was seen in cardiac consultation. The patient should continue to have serial enzymes and EKGs checked, echocardiogram should be ordered, venous duplex of upper and lower extremities should be performed, and D-dimer will be considered. Param Soto M.D. DR: SRIKANTH JOB#: [id number] CC:
[2016-08-01] MEDS: Morphine Sulfate 2mg/ml Inj IVP PRN ×2 (03:25→08:07)
[2016-08-01 04:00] VITALS: BP 147/86
[2016-08-01 07:59] VITALS: BP 131/53
[2016-08-01] MEDS: Aspirin Baby 81mg ORAL SCH (08:07)
[2016-08-01] MEDS: Miralax 17gm pkt ORAL PRN ×2 (08:07→08:12)
[2016-08-01] MEDS: Heparin 5000 units/ml inj SUBQ SCH ×2 (08:08→20:26)
[2016-08-01] MEDS: Docusate 250mg cap ORAL SCH (08:08)
--- NOTE | 2016-08-01 09:43 | Infectious Diseases Prog Note ---
Assessment/Plan Assessment/Plan ID consult dictated # [id number] Subjective Allergies: Coded Allergies: HALOPERIDOL (Verified Allergy, Unknown, 01/28/09) HALOPERIDOL LACTATE (Unverified Allergy, Unknown, 07/30/16) VANCOMYCIN (Unverified Adverse Reaction, Intermediate, Shortness of Breath , 06/26/13) Objective Vital Signs Last 24 Hour Vital Signs Date Time Temp Pulse Resp B/P Pulse Ox O2 Delivery O2 Flow Rate FiO2 08/01/16 07:59 97.0 100 20 131/53 97 Nasal Cannula 3.0 08/01/16 04:00 97.9 90 20 147/86 100 Nasal Cannula 3.0 08/01/16 04:00 86 08/01/16 00:00 83 08/01/16 00:00 97.9 79 18 150/97 100 Nasal Cannula 3.0 07/31/16 20:00 94 07/31/16 20:00 97.9 80 18 151/81 100 Nasal Cannula 3.0 07/31/16 16:00 68 07/31/16 15:30 96.3 65 18 99/50 100 Nasal Cannula 3.0 07/31/16 12:00 71 07/31/16 11:18 98.3 85 20 130/73 98 Nasal Cannula 3.0 Height (Feet): 5 Height (Inches): 8.00 Weight (Pounds): 300 Laboratory Tests Test 07/31/16 13:04 07/31/16 14:38 07/31/16 22:00 White Blood Count 5.2 K/UL (4.8-10.8) Red Blood Count 3.39 M/UL (4.20-5.40) L Hemoglobin 9.1 G/DL (12.0-16.0) L Hematocrit 27.8 % (37.0-47.0) L Mean Corpuscular Volume 82 FL (80-99) Mean Corpuscular Hemoglobin 26.9 PG (27.0-31.0) L Mean Corpuscular Hemoglobin Concent 32.7 G/DL (32.0-36.0) Red Cell Distribution Width 17.4 % (11.6-14.8) H Platelet Count 209 K/UL (150-450) Mean Platelet Volume 6.8 FL (6.5-10.1) Neutrophils (%) (Auto) 71.1 % (45.0-75.0) Lymphocytes (%) (Auto) 21.9 % (20.0-45.0) Monocytes (%) (Auto) 4.8 % (1.0-10.0) Eosinophils (%) (Auto) 1.4 % (0.0-3.0) Basophils (%) (Auto) 0.8 % (0.0-2.0) Erythrocyte Sedimentation Rate 120 MM/HR (0-30) H Reticulocyte Count 2.0 % (0.0-2.0) Prothrombin Time 10.0 SEC (9.30-11.50) Prothromb Time International Ratio 1.0 (0.9-1.1) Activated Partial Thromboplast Time 25 SEC (23-33) Iron Level 22 ug/dL (37-145) L Total Iron Binding Capacity 220 ug/dL (250-400) L Percent Iron Saturation 10 % (15-50) L Unsaturated Iron Binding 198 ug/dL (112-346) Lactate Dehydrogenase 133 U/L (135-230) L Troponin I < 0.30 ng/mL (<=0.30) < 0.30 ng/mL (<=0.30) C-Reactive Protein, Quantitative 9.7 mg/dL (< 0.5) H Triglycerides Level 174 mg/dL (< 150) H Cholesterol Level 109 mg/dL (< 200) LDL Cholesterol 47 mg/dL (60-99) L HDL Cholesterol 27 mg/dL (> 60) Cholesterol/HDL Ratio 4.0 (3.3-4.4) Carcinoembryonic Antigen 0.9 ng/mL Vitamin B12 Level 499 pg/mL (211-946) Folate Pending Thyroid Stimulating Hormone (TSH) 0.949 uIU/mL (0.300-4.500) Current Medications Medications (Trade) Dose Ordered Sig/Shiraz Route PRN Reason Start Time Stop Time Status Last Admin Dose Admin Acetaminophen (Tylenol) 650 mg Q4H PRN ORAL FEVER 07/30/16 22:00 08/29/16 21:59 Albuterol/ Ipratropium (DuoNeb 0.5-3(2.5)mg/3ml) 3 ml EVERY 4 HOURS PRN HHN Shortness of Breath 07/30/16 22:00 08/04/16 21:59 Aspirin (ASA) 162 mg DAILY ORAL 07/30/16:30 08/29/16 22:29 08/01/16 08:07 Diltiazem HCl (Cardizem) 10 mg EVERY HOUR PRN IV heart rate more than 120, 07/30/16 22:00 08/29/16 21:59 Docusate Sodium (Colace) 250 mg DAILY ORAL 07/31/16 18:00 08/30/16 17:59 08/01/16 08:08 Enalaprilat (Vasotec) 2.5 mg EVERY 6 HOURS PRN IV sbp more than 160 07/30/16 22:00 08/29/16 21:59 Heparin Sodium (Porcine) (Heparin 5000 units/ml) 5,000 units EVERY 12 HOURS SUBQ 07/30/16 23:00 08/29/16 22:59 07/31/16 10:46 Ketorolac Tromethamine (Toradol 30mg) 30 mg Q6HR PRN IV moderate pain ( 4-6) 07/30/16 22:00 08/04/16 21:59 Morphine Sulfate (Morphine Sulfate) 2 mg EVERY 4 HOURS PRN IVP severe Pain (Pain Scale 7-10) 07/30/16 22:00 08/06/16 21:59 08/01/16 08:07 Nitroglycerin (Ntg) 0.4 mg Q5M PRN SL Prn Chest Pain 07/30/16 22:00 08/29/16 21:59 Ondansetron HCl (Zofran) 4 mg Q6H PRN IVP Nausea & Vomiting 07/30/16 22:00 08/29/16 21:59 07/31/16 10:43 Pantoprazole (Protonix) 40 mg DAILY ORAL 07/31/16 09:00 08/30/16 08:59 08/01/16 08:07 Polyethylene Glycol (Miralax) 17 gm DAILYPRN PRN ORAL Constipation 07/30/16 22:00 08/29/16 21:59 07/31/16 22:46 Temazepam (Restoril) 15 mg HSPRN PRN ORAL Insomnia 07/30/16 22:00 08/06/16 21:59 PREETHI HOLLOWAY Aug 01, 2016 09:43
[2016-08-01 11:30] VITALS: BP 162/85
[2016-08-01] MEDS: Morphine Sulfate 10mg/ml Inj IVP PRN ×3 (12:56→21:37)
[2016-08-01 15:26] LABS: APPEARANCE,URINE SLIGHTLY CLOUDY; KETONES,URINE 1+ (NEGATIVE); LEUKOCYTE ESTERASE ,URINE 3+ (NEGATIVE); NITRITE,URINE NEGATIVE (NEGATIVE); PH,URINE 5 (4.5-8.0); PROTEIN,URINE 2+ (NEGATIVE); UROBILINOGEN,URINE NORMAL MG/DL (0.0-1.0)
[2016-08-01 15:27] VITALS: BP 149/74
[2016-08-01 15:39] LABS: AMORPHOUS SEDIMENT,UR FEW /LPF; BACTERIA,URINE MANY /HPF; RBC,URINE 15-20 /HPF (0 - 2); SQUAMOUS EPITHELIAL CELL,UR FEW /LPF (NONE/OCC)
--- NOTE | 2016-08-01 17:04 | Cardiology Progress Note ---
Assessment/Plan Assessment/Plan 1. Chronic obstructive pulmonary disease with exacerbation. 2. History of diastolic dysfunction. 3. Acute renal failure. 4. Morbid obesity. 5. Sleep apnea, on CPAP at home. 6. Hypertension history. 7. Hyperlipidemia. ekg non ischemic trop all neg echo prelim norla lv fucntion awiat cxr adn venous duplex and d dimer Subjective Cardiovascular: Reports: chest pain, Denies: lightheadedness, palpitations Respiratory: Reports: shortness of breath Gastrointestinal/Abdominal: Denies: abdominal pain Genitourinary: Denies: burning Objective Last 24 Hour Vital Signs Date Time Temp Pulse Resp B/P Pulse Ox O2 Delivery O2 Flow Rate FiO2 08/01/16 15:27 97.7 84 18 149/74 97 Nasal Cannula 3.0 08/01/16 12:00 83 08/01/16 11:30 97.2 85 19 162/85 98 Nasal Cannula 3.0 08/01/16 08:00 88 08/01/16 07:59 97.0 100 20 131/53 97 Nasal Cannula 3.0 08/01/16 04:00 97.9 90 20 147/86 100 Nasal Cannula 3.0 08/01/16 04:00 86 08/01/16 00:00 83 08/01/16 00:00 97.9 79 18 150/97 100 Nasal Cannula 3.0 07/31/16 20:00 94 07/31/16 20:00 97.9 80 18 151/81 100 Nasal Cannula 3.0 General Appearance: no apparent distress, alert Neck: supple Cardiovascular: normal rate, regular rhythm Respiratory/Chest: lungs clear, normal breath sounds Abdomen: normal bowel sounds, non tender, soft Extremities: no swelling Intake and Output 07/31/16 08/01/16 19:00 07:00 Intake Total 360 ml Balance 360 ml Intake Oral 360 ml # Voids 2 Laboratory Tests Test 07/31/16 22:00 08/01/16 11:35 Troponin I < 0.30 ng/mL (<=0.30) Urine Color Yellow Urine Appearance Slightly cloudy Urine pH 5 (4.5-8.0) Urine Specific [place] 1.025 (1.005-1.035) Urine Protein 2+ (NEGATIVE) H Urine Glucose (UA) Negative (NEGATIVE) Urine Ketones 1+ (NEGATIVE) H Urine Occult Blood 4+ (NEGATIVE) H Urine Nitrite Negative (NEGATIVE) Urine Bilirubin Negative (NEGATIVE) Urine Urobilinogen Normal MG/DL (0.0-1.0) Urine Leukocyte Esterase 3+ (NEGATIVE) H Urine RBC 15-20 /HPF (0 - 2) H Urine WBC 10-15 /HPF (0 - 2) H Urine Squamous Epithelial Cells Few /LPF (NONE/OCC) Urine Amorphous Sediment Few /LPF (NONE) H Urine Bacteria Many /HPF (NONE) H SJ BARRERA Aug 01, 2016 17:04
--- NOTE | 2016-08-01 18:19 | Podiatric Progress Note ---
Assessment/Plan Patient Charisse Couch is a 65 year old female who was admitted on Jul 30, 2016 at 21:23 with chest pain Problems: (1) Lymphedema (2) Onychomycosis Assessment/Plan BILATERAL CHRONIC LOWER EXTREMITY LYMPHEDEMA. Vascular studies pending. If no DVT patient will benefit from compression therapy with using compression stockings. PAINFUL MYCOTIC TOENAILS. Debrided toenails x 10 BILATERAL LOWER EXTREMITY POOR HYGIENE. Patient will benefit from cleansing of bilateral lower extremities and application of moisturizer Subjective Allergies: Coded Allergies: HALOPERIDOL (Verified Allergy, Unknown, 01/28/09) HALOPERIDOL LACTATE (Unverified Allergy, Unknown, 07/30/16) VANCOMYCIN (Unverified Adverse Reaction, Intermediate, Shortness of Breath , 06/26/13) Subjective Patient states she is doing better today. No current chest pain. No nausea, vomiting, fevers, or chills. No pedal complaints at this time Objective Exam Last 24 Hour Vital Signs Date Time Temp Pulse Resp B/P Pulse Ox O2 Delivery O2 Flow Rate FiO2 08/01/16 15:27 97.7 84 18 149/74 97 Nasal Cannula 3.0 08/01/16 12:00 83 08/01/16 11:30 97.2 85 19 162/85 98 Nasal Cannula 3.0 08/01/16 08:00 88 08/01/16 07:59 97.0 100 20 131/53 97 Nasal Cannula 3.0 08/01/16 04:00 97.9 90 20 147/86 100 Nasal Cannula 3.0 08/01/16 04:00 86 08/01/16 00:00 83 08/01/16 00:00 97.9 79 18 150/97 100 Nasal Cannula 3.0 07/31/16 20:00 94 07/31/16 20:00 97.9 80 18 151/81 100 Nasal Cannula 3.0 Laboratory Tests Test 07/31/16 22:00 08/01/16 11:35 Troponin I < 0.30 ng/mL (<=0.30) Urine Color Yellow Urine Appearance Slightly cloudy Urine pH 5 (4.5-8.0) Urine Specific [place] 1.025 (1.005-1.035) Urine Protein 2+ (NEGATIVE) H Urine Glucose (UA) Negative (NEGATIVE) Urine Ketones 1+ (NEGATIVE) H Urine Occult Blood 4+ (NEGATIVE) H Urine Nitrite Negative (NEGATIVE) Urine Bilirubin Negative (NEGATIVE) Urine Urobilinogen Normal MG/DL (0.0-1.0) Urine Leukocyte Esterase 3+ (NEGATIVE) H Urine RBC 15-20 /HPF (0 - 2) H Urine WBC 10-15 /HPF (0 - 2) H Urine Squamous Epithelial Cells Few /LPF (NONE/OCC) Urine Amorphous Sediment Few /LPF (NONE) H Urine Bacteria Many /HPF (NONE) H Exam Narrative No open wounds. Bilateral lower extremities with severe lymphedema and poor hygiene with crusty hyperpigmented skin. Toenails are thick, discolored, and elongated. Berny Watkins DPM Aug 01, 2016 18:19
--- NOTE | 2016-08-01 18:41 | Pulmonology Progress Note ---
Assessment/Plan Problems: (1) ACS (acute coronary syndrome) (2) Open wound of foot (3) Lymphedema (4) Chronic ulcer of leg (5) Essential hypertension Assessment/Plan all notes reviewed zosyn added to cover UTI no sign of ischemic heart disease f/y by cardio f/u urine cultures Subjective ROS Limited/Unobtainable: No Interval Events: no new complains Allergies: Coded Allergies: HALOPERIDOL (Verified Allergy, Unknown, 01/28/09) HALOPERIDOL LACTATE (Unverified Allergy, Unknown, 07/30/16) VANCOMYCIN (Unverified Adverse Reaction, Intermediate, Shortness of Breath , 06/26/13) Objective Last 24 Hour Vital Signs Date Time Temp Pulse Resp B/P Pulse Ox O2 Delivery O2 Flow Rate FiO2 08/01/16 15:27 97.7 84 18 149/74 97 Nasal Cannula 3.0 08/01/16 12:00 83 08/01/16 11:30 97.2 85 19 162/85 98 Nasal Cannula 3.0 08/01/16 08:00 88 08/01/16 07:59 97.0 100 20 131/53 97 Nasal Cannula 3.0 08/01/16 04:00 97.9 90 20 147/86 100 Nasal Cannula 3.0 08/01/16 04:00 86 08/01/16 00:00 83 08/01/16 00:00 97.9 79 18 150/97 100 Nasal Cannula 3.0 07/31/16 20:00 94 07/31/16 20:00 97.9 80 18 151/81 100 Nasal Cannula 3.0 Intake and Output 07/31/16 08/01/16 19:00 07:00 Intake Total 360 ml Balance 360 ml Intake Oral 360 ml # Voids 2 Objective General Appearance: WD/WN HEENT: normocephalic, atraumatic Respiratory/Chest: chest wall non-tender, lungs clear Cardiovascular: normal peripheral pulses, normal rate, regular rhythm Abdomen: normal bowel sounds, soft, non tender, no organomegaly Extremities: extreme elephantiasis Skin: no rash, no lesions Laboratory Tests 07/31/16 22:00: Troponin I < 0.30 08/01/16 11:35: Urine Color Yellow, Urine Appearance Slightly cloudy, Urine pH 5, Urine Specific [place] 1.025, Urine Protein 2+H, Urine Glucose (UA) Negative, Urine Ketones 1+H, Urine Occult Blood 4+H, Urine Nitrite Negative, Urine Bilirubin Negative, Urine Urobilinogen Normal, Urine Leukocyte Esterase 3+H, Urine RBC 15- 20H, Urine WBC 10-15H, Urine Squamous Epithelial Cells Few, Urine Amorphous Sediment FewH, Urine Bacteria ManyH Current Medications Medications (Trade) Dose Ordered Sig/Shiraz Route PRN Reason Start Time Stop Time Status Last Admin Dose Admin Acetaminophen (Tylenol) 650 mg Q4H PRN ORAL FEVER 07/30/16 22:00 08/29/16 21:59 08/01/16 15:46 Albuterol/ Ipratropium (DuoNeb 0.5-3(2.5)mg/3ml) 3 ml EVERY 4 HOURS PRN HHN Shortness of Breath 07/30/16 22:00 08/04/16 21:59 Aspirin (ASA) 162 mg DAILY ORAL 07/30/16 22:30 08/29/16 22:29 08/01/16 08:07 Diltiazem HCl (Cardizem) 10 mg EVERY HOUR PRN IV heart rate more than 120, 07/30/16 22:00 08/29/16 21:59 Docusate Sodium (Colace) 250 mg DAILY ORAL 07/31/16 18:00 08/30/16 17:59 08/01/16 08:08 Enalaprilat (Vasotec) 2.5 mg EVERY 6 HOURS PRN IV sbp more than 160 07/30/16 22:00 08/29/16 21:59 Heparin Sodium (Porcine) (Heparin 5000 units/ml) 5,000 units EVERY 12 HOURS SUBQ 07/30/16 23:00 08/29/16 22:59 07/31/16 10:46 Ketorolac Tromethamine (Toradol 30mg) 30 mg Q6HR PRN IV moderate pain ( 4-6) 07/30/16 22:00 08/04/16 21:59 Morphine Sulfate (Morphine Sulfate) 6 mg Q4H PRN IVP For Pain 08/01/16 10:00 08/08/16 09:59 08/01/16 17:17 Nitroglycerin (Ntg) 0.4 mg Q5M PRN SL Prn Chest Pain 07/30/16 22:00 08/29/16 21:59 Ondansetron HCl (Zofran) 4 mg Q6H PRN IVP Nausea & Vomiting 07/30/16 22:00 08/29/16 21:59 07/31/16 10:43 Pantoprazole (Protonix) 40 mg DAILY ORAL 07/31/16 09:00 08/30/16 08:59 08/01/16 08:07 Polyethylene Glycol (Miralax) 17 gm DAILYPRN PRN ORAL Constipation 07/30/16 22:00 08/29/16 21:59 07/31/16 22:46 Temazepam (Restoril) 15 mg HSPRN PRN ORAL Insomnia 07/30/16 22:00 08/06/16 21:59 RIC GONZALES Aug 01, 2016 18:41
--- NOTE | 2016-08-01 19:06 | Cardiology Report ---
APPROVED REPORT EXAM: Two-dimensional and M-mode echocardiogram with Doppler and color Doppler. INDICATION Left ventricular function M-Mode DIMENSIONS IVSd0.8 (0.7-1.1cm)Left Atrium (MM)5.9 (1.6-4.0cm) LVDd4.8 (3.5-5.6cm)Aortic Root2.7 (2.0-3.7cm) PWd1.1 (0.7-1.1cm)Aortic Cusp Exc.2.0 (1.5-2.0cm) LVDs2.2 (2.5-4.0cm) PWs1.8 cm Normal left ventricular chamber size, systolic function and wall motion. Left ventricular ejection fraction estimated to be 60-65%. No evidence of left ventricular hypertrophy. No evidence of pericardial fat or effusion. Right cardiac chamber sizes are within normal limits. Mild left atrial enlargement by 2D. Focal aortic valve sclerosis poorly visualized Thickened mitral valve leaflets with normal excursion. Mitral annulus and aortic root calcification. Pulmonic valve not well visualized. Normal tricuspid valve structure. IVC is normal in size with physiologic collapse. A color flow and spectral Doppler study was performed and revealed: No aortic regurgitation. No mitral regurgitation. Left ventricular diastolic dysfunction grade 1. No tricuspid regurgitation. Tricuspid systolic velocities suggests peak right ventricular systolic pressure of 18 mmHg
[2016-08-01] MEDS ORDERED: Piperacillin/Tazobactam 3.375 GM in D5W 110 ML IVPB SCH (20:00)
--- NOTE | 2016-08-01 21:18 | Consultation ---
DATE OF CONSULTATION: 08/01/2016 CONSULTING PHYSICIAN: Jamie Ivy M.D. PRIMARY ATTENDING: Lilibeth Clarke M.D. REFERRING PHYSICIAN: Lilibeth Clarke M.D REASON FOR CONSULTATION: Leg cellulitis. HISTORY OF PRESENT ILLNESS: This is a 65-year-old white female, who was admitted on 07/30/2016 from half-way facility complaining of chest pain. The patient's chest pain was not very typical and was seen by literacy consultant. She does not have any ST changes, elevation in troponin. She also has chronic lymphedema and elephantiasis of the legs. PAST MEDICAL HISTORY: Hypertension, COPD, depression, elephantiasis of the legs, morbid obesity, CHF, and anemia. ALLERGIES: Allergic to haloperidol and vancomycin. MEDICATIONS: Colace, Protonix, heparin, aspirin, DuoNeb inhaler, nitroglycerin, Tylenol, ketorolac, morphine, Zofran, temazepam, enalaprilat, and Cardizem. SOCIAL HISTORY: She is a long term resident. The patient is currently sleeping and cannot provide more history. PHYSICAL EXAMINATION: VITAL SIGNS: Temperature is 97, pulse is 100, and blood pressure is 131/53. GENERAL APPEARANCE: Seems obese. HEAD AND NECK: Normocephalic. HEART: Tachycardic. LUNGS: Has few rhonchi bilaterally. ABDOMEN: Obese and soft. EXTREMITIES: Bilateral lymphedema. Bilateral chronic ischemic changes with hyperkeratotic lesions. LABORATORY DATA: WBC 5.2, hemoglobin 9.1, hematocrit 27.8, and platelets are 209,000. Sodium 133, potassium 3.6, chloride 92, bicarbonate 27, BUN 16, creatinine 0.9, and glucose 117. Alkaline phosphatase 157. AST and ALT were normal. IMPRESSION: 1. Chronic lymphedema of legs and cellulitis. The patient was seen by watch engine operator that ordered vascular studies. The patient had chest pain that was found to be atypical. 2. Morbid obesity. 3. Anemia. 4. Congestive heart failure. 5. Depression. 6. Chronic obstructive pulmonary disease. RECOMMENDATIONS: I will observe off antibiotic. We will follow up on vacular studies. At the end of my exam, I thank Dr. Clarke for involving me in the care of this patient. Jamie Ivy M.D. DR: SOLITARIO JOB#: [id number] CC: ALEXANDREA
[2016-08-01 21:56] VITALS: BP 140/84
[2016-08-02 00:12] VITALS: BP 177/92
[2016-08-02] MEDS: Morphine Sulfate 10mg/ml Inj IVP PRN ×5 (02:52→22:38)
[2016-08-02 04:09] VITALS: BP 141/75
[2016-08-02] MEDS: Piperacillin/Tazobactam 3.375 GM in D5W 110 ML IVPB SCH ×3 (06:02→22:37)
[2016-08-02 08:00] VITALS: BP 143/83
[2016-08-02] MEDS: Aspirin Baby 81mg ORAL SCH (08:33)
[2016-08-02] MEDS: Miralax 17gm pkt ORAL PRN (08:33)
[2016-08-02] MEDS: Docusate 250mg cap ORAL SCH (08:33)
[2016-08-02] MEDS: Heparin 5000 units/ml inj SUBQ SCH ×2 (08:34→21:00)
[2016-08-02 09:31] LABS: TROPONIN I < 0.30 ng/mL (<=0.30)
--- NOTE | 2016-08-02 09:42 | Diagnostic Imaging Report ---
Indications: Chest pain Technique: Portable AP chest Findings: Comparison: 06/25/13 Inspiratory effort has decreased. Cardiac silhouette remains enlarged. Pulmonary vascular redistribution, bilateral interstitial infiltrates have decreased. Elevation of the apparent left hemidiaphragm. No definite pleural abnormality. IMPRESSION: Decrease in to resolution of previous bilateral congestive changes. Residual disease may be acute or chronic. Stable cardiomegaly Development of elevation apparent left hemidiaphragm may be secondary to pulmonary parenchymal volume loss, subpulmonic pleural effusion, or subdiaphragmatic process
--- NOTE | 2016-08-02 10:50 | Infectious Diseases Prog Note ---
Assessment/Plan Assessment/Plan A: This is a 65-year-old white female Leg cellulitis UCx : GNR Echo : EF 60% chronic lymphedema and elephantiasis of the legs HTN COPD Depression Morbid obesity CHF Anemia IMPRESSION: pt on IV Zosyn d# 2 monitor CBC monitor BMP monitor UCx monitor Cxray Subjective Constitutional: Denies: anorexia, chills, drenching sweats, fatigue, fever, no symptoms, other Allergies: Coded Allergies: HALOPERIDOL (Verified Allergy, Unknown, 01/28/09) HALOPERIDOL LACTATE (Unverified Allergy, Unknown, 07/30/16) VANCOMYCIN (Unverified Adverse Reaction, Intermediate, Shortness of Breath , 06/26/13) Objective Vital Signs Last 24 Hour Vital Signs Date Time Temp Pulse Resp B/P Pulse Ox O2 Delivery O2 Flow Rate FiO2 08/02/16 08:00 98.1 88 18 143/83 98 Room Air 08/02/16 08:00 71 08/02/16 04:09 98.3 71 18 141/75 94 Room Air 08/02/16 04:00 72 08/02/16 00:12 98.4 72 18 177/92 97 Room Air 08/02/16 00:00 66 08/01/16 21:56 98.6 74 18 140/84 94 Room Air 08/01/16 20:00 71 08/01/16 16:00 70 08/01/16 15:27 97.7 84 18 149/74 97 Nasal Cannula 3.0 08/01/16 12:00 83 08/01/16 11:30 97.2 85 19 162/85 98 Nasal Cannula 3.0 Height (Feet): 5 Height (Inches): 8.00 Weight (Pounds): 300 HEENT: atraumatic Respiratory/Chest: normal breath sounds Cardiovascular: regular rhythm Abdomen: soft, non tender Microbiology Date/Time Source Procedure Growth Status 08/01/16 11:35 Urine,Clean Catch Urine Culture - Preliminary Gram Negative Bacillus 1 Resulted 07/31/16 06:25 Rectum VRE Culture - Final Enterococcus Faecium - Vre Enterococcus Faecalis - Vre Complete Laboratory Tests Test 08/01/16 11:35 08/02/16 08:50 Urine Color Yellow Urine Appearance Slightly cloudy Urine pH 5 (4.5-8.0) Urine Specific [place] 1.025 (1.005-1.035) Urine Protein 2+ (NEGATIVE) H Urine Glucose (UA) Negative (NEGATIVE) Urine Ketones 1+ (NEGATIVE) H Urine Occult Blood 4+ (NEGATIVE) H Urine Nitrite Negative (NEGATIVE) Urine Bilirubin Negative (NEGATIVE) Urine Urobilinogen Normal MG/DL (0.0-1.0) Urine Leukocyte Esterase 3+ (NEGATIVE) H Urine RBC 15-20 /HPF (0 - 2) H Urine WBC 10-15 /HPF (0 - 2) H Urine Squamous Epithelial Cells Few /LPF (NONE/OCC) Urine Amorphous Sediment Few /LPF (NONE) H Urine Bacteria Many /HPF (NONE) H D-Dimer 2052 ng/mL (<500) H Troponin I < 0.30 ng/mL (<=0.30) Pro-B-Type Natriuretic Peptide 851 pg/mL (0-125) H Current Medications Medications (Trade) Dose Ordered Sig/Shiraz Route PRN Reason Start Time Stop Time Status Last Admin Dose Admin Acetaminophen (Tylenol) 650 mg Q4H PRN ORAL FEVER 07/30/16 22:00 08/29/16 21:59 08/01/16 15:46 Albuterol/ Ipratropium (DuoNeb 0.5-3(2.5)mg/3ml) 3 ml EVERY 4 HOURS PRN HHN Shortness of Breath 07/30/16 22:00 08/04/16 21:59 Aspirin (ASA) 162 mg DAILY ORAL 07/30/16 22:30 08/29/16 22:29 08/02/16 08:33 Diltiazem HCl (Cardizem) 10 mg EVERY HOUR PRN IV heart rate more than 120, 07/30/16 22:00 08/29/16 21:59 Docusate Sodium (Colace) 250 mg DAILY ORAL 07/31/16 18:00 08/30/16 17:59 08/02/16 08:33 Enalaprilat (Vasotec) 2.5 mg EVERY 6 HOURS PRN IV sbp more than 160 07/30/16 22:00 08/29/16 21:59 Heparin Sodium (Porcine) (Heparin 5000 units/ml) 5,000 units EVERY 12 HOURS SUBQ 07/30/16 23:00 08/29/16 22:59 08/02/16 08:34 Ketorolac Tromethamine (Toradol 30mg) 30 mg Q6HR PRN IV moderate pain ( 4-6) 07/30/16 22:00 08/04/16 21:59 Morphine Sulfate 6 mg 6 mg Q4H PRN IVP For Pain 08/01/16 10:00 08/08/16 09:59 08/02/16 08:39 Nitroglycerin (Ntg) 0.4 mg Q5M PRN SL Prn Chest Pain 07/30/16 22:00 08/29/16 21:59 Ondansetron HCl (Zofran) 4 mg Q6H PRN IVP Nausea & Vomiting 07/30/16 22:00 08/29/16 21:59 07/31/16 10:43 Pantoprazole (Protonix) 40 mg DAILY ORAL 07/31/16 09:00 08/30/16 08:59 08/02/16 08:33 Piperacillin Sod/ Tazobactam Sod/ Dextrose (Zosyn/D5W) 110 ml @ 27.5 mls/hr EVERY 8 HOURS IVPB 08/02/16 06:00 08/09/16 05:59 08/02/16 06:02 Polyethylene Glycol (Miralax) 17 gm DAILYPRN PRN ORAL Constipation 07/30/16 22:00 08/29/16 21:59 08/02/16 08:33 Temazepam (Restoril) 15 mg HSPRN PRN ORAL Insomnia 07/30/16 22:00 08/06/16 21:59 PINA SALTER M.D. Aug 02, 2016 10:50
[2016-08-02 12:00] VITALS: BP 146/91
--- NOTE | 2016-08-02 12:56 | Pulmonology Progress Note ---
Assessment/Plan Problems: (1) ACS (acute coronary syndrome) (2) Open wound of foot (3) Lymphedema (4) Chronic ulcer of leg (5) Essential hypertension Assessment/Plan all notes reviewed zosyn added to cover UTI no sign of ischemic heart disease f/y by cardio f/u urine cultures continue zosyn f/u cardio and iD recommendations Subjective ROS Limited/Unobtainable: No Constitutional: Reports: no symptoms HEENT: Repors: no symptoms Respiratory: Reports: no symptoms Allergies: Coded Allergies: HALOPERIDOL (Verified Allergy, Unknown, 01/28/09) HALOPERIDOL LACTATE (Unverified Allergy, Unknown, 07/30/16) VANCOMYCIN (Unverified Adverse Reaction, Intermediate, Shortness of Breath , 06/26/13) Objective Last 24 Hour Vital Signs Date Time Temp Pulse Resp B/P Pulse Ox O2 Delivery O2 Flow Rate FiO2 08/02/16 08:00 98.1 88 18 143/83 98 Room Air 08/02/16 08:00 71 08/02/16 04:09 98.3 71 18 141/75 94 Room Air 08/02/16 04:00 72 08/02/16 00:12 98.4 72 18 177/92 97 Room Air 08/02/16 00:00 66 08/01/16 21:56 98.6 74 18 140/84 94 Room Air 08/01/16 20:00 71 08/01/16 16:00 70 08/01/16 15:27 97.7 84 18 149/74 97 Nasal Cannula 3.0 Intake and Output 08/01/16 08/02/16 19:00 07:00 Intake Total 460 ml 110.0 ml Balance 460 ml 110.0 ml Intake Oral 460 ml IV Total 110.0 ml # Voids 2 2 Objective General Appearance: WD/WN HEENT: normocephalic, atraumatic Respiratory/Chest: chest wall non-tender, lungs clear Cardiovascular: normal peripheral pulses, normal rate, regular rhythm Abdomen: normal bowel sounds, soft, non tender, no organomegaly Extremities: extreme elephantiasis Skin: no rash, no lesions Microbiology Date/Time Source Procedure Growth Status 08/01/16 11:35 Urine,Clean Catch Urine Culture - Preliminary Gram Negative Bacillus 1 Resulted 07/31/16 06:25 Rectum VRE Culture - Final Enterococcus Faecium - Vre Enterococcus Faecalis - Vre Complete Laboratory Tests 08/02/16 08:50: D-Dimer 2052H, Troponin I < 0.30, Pro-B-Type Natriuretic Peptide 851H Current Medications Medications (Trade) Dose Ordered Sig/Shiraz Route PRN Reason Start Time Stop Time Status Last Admin Dose Admin Acetaminophen (Tylenol) 650 mg Q4H PRN ORAL FEVER 07/30/16 22:00 08/29/16 21:59 08/01/16 15:46 Albuterol/ Ipratropium (DuoNeb 0.5-3(2.5)mg/3ml) 3 ml EVERY 4 HOURS PRN HHN Shortness of Breath 07/30/16 22:00 08/04/16 21:59 Aspirin (ASA) 162 mg DAILY ORAL 07/30/16 22:30 08/29/16 22:29 08/02/16 08:33 Diltiazem HCl (Cardizem) 10 mg EVERY HOUR PRN IV heart rate more than 120, 07/30/16 22:00 08/29/16 21:59 Docusate Sodium (Colace) 250 mg DAILY ORAL 07/31/16 18:00 08/30/16 17:59 08/02/16 08:33 Enalaprilat (Vasotec) 2.5 mg EVERY 6 HOURS PRN IV sbp more than 160 07/30/16 22:00 08/29/16 21:59 Heparin Sodium (Porcine) (Heparin 5000 units/ml) 5,000 units EVERY 12 HOURS SUBQ 07/30/16 23:00 08/29/16 22:59 08/02/16 08:34 Iron Sucrose/ Sodium Chloride (Venofer/Sodium Chloride) 60 ml @ 240 mls/hr BEDTIME IVPB 08/02/16 21:00 08/06/16 21:14 UNV Ketorolac Tromethamine (Toradol 30mg) 30 mg Q6HR PRN IV moderate pain ( 4-6) 07/30/16 22:00 08/04/16 21:59 Morphine Sulfate 6 mg 6 mg Q4H PRN IVP For Pain 08/01/16 10:00 08/08/16 09:59 08/02/16 08:39 Nitroglycerin (Ntg) 0.4 mg Q5M PRN SL Prn Chest Pain 07/30/16 22:00 08/29/16 21:59 Ondansetron HCl (Zofran) 4 mg Q6H PRN IVP Nausea & Vomiting 07/30/16 22:00 08/29/16 21:59 07/31/16 10:43 Pantoprazole (Protonix) 40 mg DAILY ORAL 07/31/16 09:00 08/30/16 08:59 08/02/16 08:33 Piperacillin Sod/ Tazobactam Sod 3.375 gm/Dextrose 110 ml @ 27.5 mls/hr EVERY 8 HOURS IVPB 08/02/16 06:00 08/09/16 05:59 08/02/16 06:02 Polyethylene Glycol (Miralax) 17 gm DAILYPRN PRN ORAL Constipation 07/30/16 22:00 08/29/16 21:59 08/02/16 08:33 Temazepam (Restoril) 15 mg HSPRN PRN ORAL Insomnia 07/30/16 22:00 08/06/16 21:59 RIC GONZALES Aug 02, 2016 12:56
--- NOTE | 2016-08-02 15:30 | Wound Care Consultation ---
Wound Assessment Wound Assessment #1: Wound Number: #1 Wound Present on Admission: Yes New Wound: No Status Change of Wound: No Wound Location Body Site Modif: left Wound Location Body Site: sacral Wound Type: blister Radha Test: Does not Radha Wound Thickness: Partial Thickness Wound Length: 3.0 Wound Width: 3.0 Wound Depth: utd Percent of Wound [place]/Red: 100 Wound Drainage Amount: None Wound Drainage Odor: None/Absent Tissue Surrounding Wound: Indurated Wound General Appearance: Asymptomatic Wound Assessment #2: Wound Number: #2 Wound Present on Admission: Yes New Wound: No Status Change of Wound: No Wound Location Body Site Modif: right Wound Location Body Site: sacral Wound Type: blister Radha Test: Does not Radha Wound Thickness: Partial Thickness Wound Length: 3.0 Wound Width: 3.0 Wound Depth: utd Percent of Wound [place]/Red: 100 Wound Drainage Amount: None Wound Drainage Odor: None/Absent Tissue Surrounding Wound: Indurated Wound Assessment #3: Wound Number: #3 Wound Present on Admission: Yes New Wound: No Status Change of Wound: No Wound Location Body Site Modif: left, lower Wound Location Body Site: leg Wound Type: other - lymphedema Wound Drainage Amount: None Wound Drainage Odor: None/Absent Tissue Surrounding Wound: plaque,crusty, hyperpigmentation. Wound General Appearance: Open to air Wound Assessment #4: Wound Number: #4 Wound Present on Admission: Yes New Wound: No Status Change of Wound: No Wound Location Body Site Modif: right, lower Wound Location Body Site: leg Wound Type: other - Lymphedema Wound Drainage Amount: None Wound Drainage Odor: None/Absent Tissue Surrounding Wound: plaque,crusty,hyperpigmentation. Wound General Appearance: Open to air Wound Comment #1 left sacral blister. #2 right sacral blister. #3 left and right lower extremities lymphedema with dry yellow plaque and crust surrounded with hyperpigmentation. Recommendation. - Local wound care as ordered. - Turn and reposition. -Keep clean and dry. -Optimize nutrition. -Apply low air loss overlay SPR mattress. - Assess and notify MD for any changes of condition in skin. ANJELICA YOUSIF Aug 02, 2016 15:30
--- NOTE | 2016-08-02 19:44 | Cardiology Progress Note ---
Assessment/Plan Assessment/Plan 1. Chronic obstructive pulmonary disease with exacerbation. 2. History of diastolic dysfunction. 3. Acute renal failure. 4. Morbid obesity. 5. Sleep apnea, on CPAP at home. 6. Hypertension history. 7. Hyperlipidemia. ekg non ischemic trop all neg echo norla lv fucntion refused agreed to venosuduplex prelin ki refused agreend then refused v/q refused blood draws dc off tele jeison ehwen ok with dr bedolla Subjective Cardiovascular: Reports: chest pain - some , lightheadedness - some Respiratory: Reports: shortness of breath - some Gastrointestinal/Abdominal: Reports: abdominal pain - pito e Genitourinary: Denies: burning Objective Last 24 Hour Vital Signs Date Time Temp Pulse Resp B/P Pulse Ox O2 Delivery O2 Flow Rate FiO2 08/02/16 16:00 69 08/02/16 12:00 97.4 81 18 146/91 Nasal Cannula 2.0 100 08/02/16 12:00 73 08/02/16 08:00 98.1 88 18 143/83 98 Room Air 08/02/16 08:00 71 08/02/16 04:09 98.3 71 18 141/75 94 Room Air 08/02/16 04:00 72 08/02/16 00:12 98.4 72 18 177/92 97 Room Air 08/02/16 00:00 66 08/01/16 21:56 98.6 74 18 140/84 94 Room Air 08/01/16 20:00 71 General Appearance: no apparent distress, alert Neck: supple Cardiovascular: normal rate, regular rhythm Respiratory/Chest: lungs clear, normal breath sounds Abdomen: normal bowel sounds, non tender, soft Extremities: moderate edema Intake and Output 08/01/16 08/02/16 19:00 07:00 Intake Total 460 ml 110.0 ml Balance 460 ml 110.0 ml Intake Oral 460 ml IV Total 110.0 ml # Voids 2 2 Laboratory Tests Test 08/02/16 08:50 D-Dimer 2052 ng/mL (<500) H Troponin I < 0.30 ng/mL (<=0.30) Pro-B-Type Natriuretic Peptide 851 pg/mL (0-125) H Microbiology Date/Time Source Procedure Growth Status 08/01/16 11:35 Urine,Clean Catch Urine Culture - Preliminary Gram Negative Bacillus 1 Resulted 07/31/16 06:25 Rectum VRE Culture - Final Enterococcus Faecium - Vre Enterococcus Faecalis - Vre Complete SJ BARRERA Aug 02, 2016 19:44
[2016-08-02 20:35] VITALS: BP 159/75
[2016-08-02] MEDS: Vitamin A&D Oint 2oz Tube TOPIC SCH (21:10)
[2016-08-02] MEDS: Iron Sucrose 100 MG in NS 55 ML IVPB SCH (21:10)
[2016-08-03 00:16] VITALS: BP 163/66
[2016-08-03] MEDS: Morphine Sulfate 10mg/ml Inj IVP PRN ×5 (03:51→20:54)
[2016-08-03 03:53] VITALS: BP 157/93
[2016-08-03] MEDS: Piperacillin/Tazobactam 3.375 GM in D5W 110 ML IVPB SCH (06:31)
[2016-08-03] MEDS: Aspirin Baby 81mg ORAL SCH (08:08)
[2016-08-03] MEDS: Docusate 250mg cap ORAL SCH (08:08)
[2016-08-03] MEDS: Vitamin A&D Oint 2oz Tube TOPIC SCH ×2 (08:09→21:00)
[2016-08-03] MEDS: Heparin 5000 units/ml inj SUBQ SCH ×2 (08:11→20:59)
[2016-08-03 08:23] VITALS: BP 150/77
--- NOTE | 2016-08-03 09:57 | Infectious Diseases Prog Note ---
Assessment/Plan Assessment/Plan A: This is a 65-year-old white female Leg cellulitis improved UCx : ESBL EColi ( colonizer ) no symptoms psoriasis Echo : EF 60% chronic lymphedema and elephantiasis of the legs HTN COPD Depression Morbid obesity CHF Anemia IMPRESSION: DC IV Zosyn d# 3 ,and monitor pt off of AB Rx monitor CBC monitor BMP monitor Cxray Subjective Constitutional: Denies: anorexia, chills, drenching sweats, fatigue, fever, no symptoms, other Allergies: Coded Allergies: HALOPERIDOL (Verified Allergy, Unknown, 01/28/09) HALOPERIDOL LACTATE (Unverified Allergy, Unknown, 07/30/16) VANCOMYCIN (Unverified Adverse Reaction, Intermediate, Shortness of Breath , 06/26/13) Objective Vital Signs Last 24 Hour Vital Signs Date Time Temp Pulse Resp B/P Pulse Ox O2 Delivery O2 Flow Rate FiO2 08/03/16 08:43 97.0 08/03/16 08:23 97.0 71 20 150/77 98 Nasal Cannula 2.0 08/03/16 07:35 68 08/03/16 04:00 80 08/03/16 03:53 98.2 84 18 157/93 98 Nasal Cannula 08/03/16 00:16 98.8 77 19 163/66 96 Nasal Cannula 08/03/16 00:00 75 08/02/16 20:35 98.6 80 18 159/75 100 Nasal Cannula 08/02/16 20:00 76 08/02/16 16:00 69 08/02/16 12:00 97.4 81 18 146/91 Nasal Cannula 2.0 100 08/02/16 12:00 73 Height (Feet): 5 Height (Inches): 8.00 Weight (Pounds): 300 HEENT: anicteric Respiratory/Chest: normal breath sounds Cardiovascular: no gallop/murmur Abdomen: no mass Microbiology Date/Time Source Procedure Growth Status 08/01/16 11:35 Urine,Clean Catch Urine Culture - Final Escherichia Coli - Esbl Complete Current Medications Medications (Trade) Dose Ordered Sig/Shiraz Route PRN Reason Start Time Stop Time Status Last Admin Dose Admin Acetaminophen (Tylenol) 650 mg Q4H PRN ORAL FEVER 07/30/16 22:00 08/29/16 21:59 08/01/16 15:46 Albuterol/ Ipratropium (DuoNeb 0.5-3(2.5)mg/3ml) 3 ml EVERY 4 HOURS PRN HHN Shortness of Breath 07/30/16 22:00 08/04/16 21:59 Aspirin (ASA) 162 mg DAILY ORAL 07/30/16 22:30 08/29/16 22:29 08/03/16 08:08 Diltiazem HCl (Cardizem) 10 mg EVERY HOUR PRN IV heart rate more than 120, 07/30/16 22:00 08/29/16 21:59 Docusate Sodium (Colace) 250 mg DAILY ORAL 07/31/16 18:00 08/30/16 17:59 08/03/16 08:08 Enalaprilat (Vasotec) 2.5 mg EVERY 6 HOURS PRN IV sbp more than 160 07/30/16 22:00 08/29/16 21:59 Heparin Sodium (Porcine) (Heparin 5000 units/ml) 5,000 units EVERY 12 HOURS SUBQ 07/30/16 23:00 08/29/16 22:59 08/03/16 08:11 Iron Sucrose/ Sodium Chloride (Venofer/Sodium Chloride) 60 ml @ 240 mls/hr BEDTIME IVPB 08/02/16 21:00 08/06/16 21:14 08/02/16 21:10 Ketorolac Tromethamine (Toradol 30mg) 30 mg Q6HR PRN IV moderate pain ( 4-6) 07/30/16 22:00 08/04/16 21:59 Morphine Sulfate 6 mg 6 mg Q4H PRN IVP For Pain 08/01/16 10:00 08/08/16 09:59 08/03/16 08:13 Nitroglycerin (Ntg) 0.4 mg Q5M PRN SL Prn Chest Pain 07/30/16 22:00 08/29/16 21:59 Ondansetron HCl (Zofran) 4 mg Q6H PRN IVP Nausea & Vomiting 07/30/16 22:00 08/29/16 21:59 07/31/16 10:43 Pantoprazole (Protonix) 40 mg DAILY ORAL 07/31/16 09:00 08/30/16 08:59 08/03/16 08:08 Piperacillin Sod/ Tazobactam Sod 3.375 gm/Dextrose 110 ml @ 27.5 mls/hr EVERY 8 HOURS IVPB 08/02/16 06:00 08/09/16 05:59 08/03/16 06:31 Polyethylene Glycol (Miralax) 17 gm DAILYPRN PRN ORAL Constipation 07/30/16 22:00 08/29/16 21:59 08/02/16 08:33 Temazepam (Restoril) 15 mg HSPRN PRN ORAL Insomnia 07/30/16 22:00 08/06/16 21:59 Vitamin A/Vitamin D (A & D Oint) 1 applic EVERY 12 HOURS TOPIC 08/02/16 21:00 09/01/16 20:59 08/03/16 08:09 PINA SALTER M.D. Aug 03, 2016 09:56
--- NOTE | 2016-08-03 10:37 | Cardiology Progress Note ---
Assessment/Plan Assessment/Plan 1. Chronic obstructive pulmonary disease with exacerbation. 2. History of diastolic dysfunction. 3. Acute renal failure. 4. Morbid obesity. 5. Sleep apnea, on CPAP at home. 6. Hypertension history. 7. Hyperlipidemia. ekg non ischemic trop all neg echo norla lv fucntion refused then agreed to venosuduplex final neg refused , then agreed then refused v/q again refused blood draws dc off tele home when ok with dr bedolla Subjective Cardiovascular: Reports: chest pain - some , Denies: lightheadedness Respiratory: Reports: shortness of breath - some Gastrointestinal/Abdominal: Reports: abdominal pain - some Genitourinary: Denies: burning Subjective per pt she has had these sx contrantly for a whiel Objective Last 24 Hour Vital Signs Date Time Temp Pulse Resp B/P Pulse Ox O2 Delivery O2 Flow Rate FiO2 08/03/16 08:43 97.0 08/03/16 08:23 97.0 71 20 150/77 98 Nasal Cannula 2.0 08/03/16 07:35 68 08/03/16 04:00 80 08/03/16 03:53 98.2 84 18 157/93 98 Nasal Cannula 08/03/16 00:16 98.8 77 19 163/66 96 Nasal Cannula 08/03/16 00:00 75 08/02/16 20:35 98.6 80 18 159/75 100 Nasal Cannula 08/02/16 20:00 76 08/02/16 16:00 69 08/02/16 12:00 97.4 81 18 146/91 Nasal Cannula 2.0 100 08/02/16 12:00 73 General Appearance: alert Cardiovascular: normal rate, regular rhythm Respiratory/Chest: lungs clear Abdomen: normal bowel sounds, non tender, soft Extremities: moderate edema Intake and Output 08/02/16 08/03/16 19:00 07:00 Intake Total 460.0 ml 350.0 ml Balance 460.0 ml 350.0 ml Intake Oral 240 ml IV Total 220.0 ml 350.0 ml # Voids 1 3 Microbiology Date/Time Source Procedure Growth Status 08/01/16 11:35 Urine,Clean Catch Urine Culture - Final Escherichia Coli - Esbl Complete SJ BARRERA Aug 03, 2016 10:37
[2016-08-03] MEDS ORDERED: NS 275ml ONE (10:44)
[2016-08-03] MEDS ORDERED: Tubing IV Secondary IV ONE (10:44)
[2016-08-03 11:39] VITALS: BP 135/85
[2016-08-03] MEDS: Lisinopril 10mg tab ORAL SCH (12:21)
[2016-08-03 15:48] VITALS: BP 127/72
[2016-08-03 20:00] VITALS: BP 116/80
[2016-08-03] MEDS: Iron Sucrose 100 MG in NS 55 ML IVPB SCH (21:00)
--- NOTE | 2016-08-03 22:56 | Pulmonology Progress Note ---
Assessment/Plan Problems: (1) ACS (acute coronary syndrome) (2) Open wound of foot (3) Lymphedema (4) Chronic ulcer of leg (5) Essential hypertension Assessment/Plan all notes reviewed no sign of ischemic heart disease f/y by cardio f/u urine cultures continue zosyn day 3, monitor off abx f/u cardio and iD recommendations dc to [facility] in am Subjective ROS Limited/Unobtainable: No Allergies: Coded Allergies: HALOPERIDOL (Verified Allergy, Unknown, 01/28/09) HALOPERIDOL LACTATE (Unverified Allergy, Unknown, 07/30/16) VANCOMYCIN (Unverified Adverse Reaction, Intermediate, Shortness of Breath , 06/26/13) Objective Last 24 Hour Vital Signs Date Time Temp Pulse Resp B/P Pulse Ox O2 Delivery O2 Flow Rate FiO2 08/03/16 21:26 97.6 08/03/16 20:00 97.9 84 20 116/80 97 Nasal Cannula 3.0 100 08/03/16 16:24 72 08/03/16 15:48 97.7 73 20 127/72 97 Nasal Cannula 3.0 08/03/16 12:21 135/85 08/03/16 11:39 98.1 73 20 135/85 97 Nasal Cannula 2.0 08/03/16 11:33 69 08/03/16 08:23 97.0 71 20 150/77 98 Nasal Cannula 2.0 08/03/16 07:35 68 08/03/16 04:00 80 08/03/16 03:53 98.2 84 18 157/93 98 Nasal Cannula 08/03/16 00:16 98.8 77 19 163/66 96 Nasal Cannula 08/03/16 00:00 75 Intake and Output 08/02/16 08/03/16 19:00 07:00 Intake Total 460.0 ml 350.0 ml Balance 460.0 ml 350.0 ml Intake Oral 240 ml IV Total 220.0 ml 350.0 ml # Voids 1 3 Objective General Appearance: WD/WN HEENT: normocephalic, atraumatic Respiratory/Chest: chest wall non-tender, lungs clear Cardiovascular: normal peripheral pulses, normal rate, regular rhythm Abdomen: normal bowel sounds, soft, non tender, no organomegaly Extremities: extreme elephantiasis Skin: no rash, no lesions Microbiology Date/Time Source Procedure Growth Status 08/01/16 11:35 Urine,Clean Catch Urine Culture - Final Escherichia Coli - Esbl Complete Current Medications Medications (Trade) Dose Ordered Sig/Shiraz Route PRN Reason Start Time Stop Time Status Last Admin Dose Admin Acetaminophen (Tylenol) 650 mg Q4H PRN ORAL FEVER 07/30/16 22:00 08/29/16 21:59 08/01/16 15:46 Albuterol/ Ipratropium (DuoNeb 0.5-3(2.5)mg/3ml) 3 ml EVERY 4 HOURS PRN HHN Shortness of Breath 07/30/16 22:00 08/04/16 21:59 Aspirin (ASA) 162 mg DAILY ORAL 07/30/16 22:30 08/29/16 22:29 08/03/16 08:08 Diltiazem HCl (Cardizem) 10 mg EVERY HOUR PRN IV heart rate more than 120, 07/30/16 22:00 08/29/16 21:59 Docusate Sodium (Colace) 250 mg DAILY ORAL 07/31/16 18:00 08/30/16 17:59 08/03/16 08:08 Enalaprilat (Vasotec) 2.5 mg EVERY 6 HOURS PRN IV sbp more than 160 07/30/16 22:00 08/29/16 21:59 Heparin Sodium (Porcine) (Heparin 5000 units/ml) 5,000 units EVERY 12 HOURS SUBQ 07/30/16 23:00 08/29/16 22:59 08/03/16 20:59 Iron Sucrose/ Sodium Chloride (Venofer/Sodium Chloride) 60 ml @ 240 mls/hr BEDTIME IVPB 08/02/16 21:00 08/06/16 21:14 08/03/16 21:00 Ketorolac Tromethamine (Toradol 30mg) 30 mg Q6HR PRN IV moderate pain ( 4-6) 07/30/16 22:00 08/04/16 21:59 Lisinopril (Zestril) 10 mg DAILY ORAL 08/03/16 11:30 09/02/16 11:29 08/03/16 12:21 Morphine Sulfate 6 mg 6 mg Q4H PRN IVP For Pain 08/01/16 10:00 08/08/16 09:59 08/03/16 20:54 Nitroglycerin (Ntg) 0.4 mg Q5M PRN SL Prn Chest Pain 07/30/16 22:00 08/29/16 21:59 Ondansetron HCl (Zofran) 4 mg Q6H PRN IVP Nausea & Vomiting 07/30/16 22:00 08/29/16 21:59 07/31/16 10:43 Pantoprazole (Protonix) 40 mg DAILY ORAL 07/31/16 09:00 08/30/16 08:59 08/03/16 08:08 Polyethylene Glycol (Miralax) 17 gm DAILYPRN PRN ORAL Constipation 07/30/16 22:00 08/29/16 21:59 08/02/16 08:33 Temazepam (Restoril) 15 mg HSPRN PRN ORAL Insomnia 07/30/16 22:00 08/06/16 21:59 Vitamin A/Vitamin D (A & D Oint) 1 applic EVERY 12 HOURS TOPIC 08/02/16 21:00 09/01/16 20:59 08/03/16 21:00 RIC GONZALES Aug 03, 2016 22:56
[2016-08-04] VITALS: BP 116/80
--- NOTE | 2016-08-04 00:17 | Consultation ---
DATE OF CONSULTATION: 08/03/2016 PSYCHIATRIC CONSULTATION: CONSULTING PHYSICIAN: Harris Ballesteros M.D. ATTENDING PHYSICIAN: Lilibeth Clarke M.D. REFERRING PHYSICIAN: Lilibeth Clarke M.D. HISTORY OF PRESENT ILLNESS: This is a 65-year-old female with a history of multiple medical problems including obesity, hypertension, sepsis, cellulitis, and COPD, who has been admitted to the hospital secondary to chest pain. Psychiatry was consulted as the patient presents with anxiety and depression. During the evaluation, the patient her symptoms and she is a poor historian. She also endorses impairment of memory. PAST PSYCHIATRIC HISTORY: She denies any psychiatric history. She stated that she has never seen a psychiatrist and not taking any psychotropic medications. I have the medical records. There is no history of suicide attempt, however the patient has a history of opiate dependence. PAST MEDICAL HISTORY: Significant for lymphedema, hypertension, tinea corporis, cellulitis, and sepsis. ALLERGIES: Haldol and vancomycin. MEDICATIONS: Medication at home includes temazepam, enalaprilat, Cardizem, nitroglycerin, Tylenol, Colace, Protonix, and heparin. SUBSTANCE ABUSE HISTORY: No history of illicit drug use or alcohol. SOCIAL HISTORY: The patient lives rehab. PHYSICAL EXAMINATION: MENTAL STATUS EXAMINATION: The patient is alert and oriented x3. Mood is anxious and depressed. Affect is constricted and congruent with mood. Thought process, there is a paucity of thought content. Thought content, no suicidal or homicidal ideation. ASSESSMENT: AXIS I Anxiety disorder. AXIS II Deferred. AXIS III As above. AXIS IV Moderate. AXIS V Global assessment of functioning is 20. PLAN: 1. The patient will be started on Lexapro 10 mg p.o. daily every morning. 2. Provide the patient with supportive therapy and reality orientation. Harris Ballesteros M.D. DR: Eric JOB#: [id number] CC:
[2016-08-04] MEDS: Morphine Sulfate 10mg/ml Inj IVP PRN ×4 (01:23→13:53)
[2016-08-04 04:00] VITALS: BP 118/68
[2016-08-04 07:46] VITALS: BP 128/82
[2016-08-04] MEDS: Aspirin Baby 81mg ORAL SCH (09:14)
[2016-08-04] MEDS: Docusate 250mg cap ORAL SCH (09:14)
[2016-08-04] MEDS: Lisinopril 10mg tab ORAL SCH (09:14)
[2016-08-04] MEDS: Vitamin A&D Oint 2oz Tube TOPIC SCH (09:21)
[2016-08-04] MEDS: Heparin 5000 units/ml inj SUBQ SCH (09:21)
[2016-08-04 11:32] VITALS: BP 127/76
--- NOTE | 2016-08-04 13:29 | Infectious Diseases Prog Note ---
Assessment/Plan Assessment/Plan A: This is a 65-year-old white female Leg cellulitis improved UCx : ESBL EColi ( colonizer ) no symptoms psoriasis Echo : EF 60% chronic lymphedema and elephantiasis of the legs HTN COPD Depression Morbid obesity CHF Anemia IMPRESSION: monitor pt off of AB Rx ( SP IV Zosyn d# 3 ) monitor CBC monitor BMP monitor Cxray Subjective Constitutional: Denies: anorexia, chills, drenching sweats, fatigue, fever, no symptoms, other Allergies: Coded Allergies: HALOPERIDOL (Verified Allergy, Unknown, 01/28/09) HALOPERIDOL LACTATE (Unverified Allergy, Unknown, 07/30/16) VANCOMYCIN (Unverified Adverse Reaction, Intermediate, Shortness of Breath , 06/26/13) Objective Vital Signs Last 24 Hour Vital Signs Date Time Temp Pulse Resp B/P Pulse Ox O2 Delivery O2 Flow Rate FiO2 08/04/16 12:00 75 08/04/16 11:32 97.2 67 20 127/76 97 Nasal Cannula 3.0 08/04/16 09:14 128/82 08/04/16 08:00 72 08/04/16 07:46 97.0 64 20 128/82 98 Nasal Cannula 3.0 08/04/16 06:06 98.4 08/04/16 04:00 69 08/04/16 04:00 97.3 75 20 118/68 97 Nasal Cannula 3.0 100 08/04/16 00:00 70 08/04/16 00:00 97.6 74 20 116/80 97 Nasal Cannula 3.0 100 08/03/16 20:00 97.9 84 20 116/80 97 Nasal Cannula 3.0 100 08/03/16 20:00 68 08/03/16 16:24 72 08/03/16 15:48 97.7 73 20 127/72 97 Nasal Cannula 3.0 Height (Feet): 5 Height (Inches): 8.00 Weight (Pounds): 300 HEENT: anicteric Respiratory/Chest: normal breath sounds Cardiovascular: normal rate Abdomen: no organomegaly Current Medications Medications (Trade) Dose Ordered Sig/Shiraz Route PRN Reason Start Time Stop Time Status Last Admin Dose Admin Acetaminophen (Tylenol) 650 mg Q4H PRN ORAL FEVER 07/30/16 22:00 08/29/16 21:59 08/01/16 15:46 Albuterol/ Ipratropium (DuoNeb 0.5-3(2.5)mg/3ml) 3 ml EVERY 4 HOURS PRN HHN Shortness of Breath 07/30/16 22:00 08/04/16 21:59 Aspirin (ASA) 162 mg DAILY ORAL 07/30/16 22:30 08/29/16 22:29 08/04/16 09:14 Diltiazem HCl (Cardizem) 10 mg EVERY HOUR PRN IV heart rate more than 120, 07/30/16 22:00 08/29/16 21:59 Docusate Sodium (Colace) 250 mg DAILY ORAL 07/31/16 18:00 08/30/16 17:59 08/04/16 09:14 Enalaprilat (Vasotec) 2.5 mg EVERY 6 HOURS PRN IV sbp more than 160 07/30/16 22:00 08/29/16 21:59 Escitalopram Oxalate (Lexapro) 10 mg DAILY ORAL 08/04/16 09:00 09/03/16 08:59 08/04/16 09:14 Heparin Sodium (Porcine) (Heparin 5000 units/ml) 5,000 units EVERY 12 HOURS SUBQ 07/30/16 23:00 08/29/16 22:59 08/04/16 09:21 Iron Sucrose/ Sodium Chloride (Venofer/Sodium Chloride) 60 ml @ 240 mls/hr BEDTIME IVPB 08/02/16 21:00 08/06/16 21:14 08/03/16 21:00 Ketorolac Tromethamine (Toradol 30mg) 30 mg Q6HR PRN IV moderate pain ( 4-6) 07/30/16 22:00 08/04/16 21:59 Lisinopril (Zestril) 10 mg DAILY ORAL 08/03/16 11:30 09/02/16 11:29 08/04/16 09:14 Morphine Sulfate 6 mg 6 mg Q4H PRN IVP For Pain 08/01/16 10:00 08/08/16 09:59 08/04/16 09:42 Nitroglycerin (Ntg) 0.4 mg Q5M PRN SL Prn Chest Pain 07/30/16 22:00 08/29/16 21:59 Ondansetron HCl (Zofran) 4 mg Q6H PRN IVP Nausea & Vomiting 07/30/16 22:00 08/29/16 21:59 07/31/16 10:43 Pantoprazole (Protonix) 40 mg DAILY ORAL 07/31/16 09:00 08/30/16 08:59 08/04/16 09:14 Polyethylene Glycol (Miralax) 17 gm DAILYPRN PRN ORAL Constipation 07/30/16 22:00 08/29/16 21:59 08/02/16 08:33 Temazepam (Restoril) 15 mg HSPRN PRN ORAL Insomnia 07/30/16 22:00 08/06/16 21:59 Vitamin A/Vitamin D (A & D Oint) 1 applic EVERY 12 HOURS TOPIC 08/02/16 21:00 09/01/16 20:59 08/04/16 09:21 PINA SALTER M.D. Aug 04, 2016 13:29
--- NOTE | 2016-08-04 15:00 | Pulmonology Progress Note ---
Assessment/Plan Problems: (1) ACS (acute coronary syndrome) (2) Open wound of foot (3) Lymphedema (4) Chronic ulcer of leg (5) Essential hypertension Assessment/Plan all notes reviewed no sign of ischemic heart disease f/y by cardio f/u urine cultures continue zosyn day 3, monitor off abx f/u cardio and iD recommendations dc to fdc today Subjective ROS Limited/Unobtainable: No HEENT: Repors: no symptoms Respiratory: Reports: no symptoms Allergies: Coded Allergies: HALOPERIDOL (Verified Allergy, Unknown, 01/28/09) HALOPERIDOL LACTATE (Unverified Allergy, Unknown, 07/30/16) VANCOMYCIN (Unverified Adverse Reaction, Intermediate, Shortness of Breath , 06/26/13) Objective Last 24 Hour Vital Signs Date Time Temp Pulse Resp B/P Pulse Ox O2 Delivery O2 Flow Rate FiO2 08/04/16 12:00 75 08/04/16 11:32 97.2 67 20 127/76 97 Nasal Cannula 3.0 08/04/16 09:14 128/82 08/04/16 08:00 72 08/04/16 07:46 97.0 64 20 128/82 98 Nasal Cannula 3.0 08/04/16 06:06 98.4 08/04/16 04:00 69 08/04/16 04:00 97.3 75 20 118/68 97 Nasal Cannula 3.0 100 08/04/16 00:00 70 08/04/16 00:00 97.6 74 20 116/80 97 Nasal Cannula 3.0 100 08/03/16 20:00 97.9 84 20 116/80 97 Nasal Cannula 3.0 100 08/03/16 20:00 68 08/03/16 16:24 72 08/03/16 15:48 97.7 73 20 127/72 97 Nasal Cannula 3.0 Intake and Output 08/03/16 08/04/16 19:00 07:00 Intake Total 170 ml 120 ml Balance 170 ml 120 ml Intake Oral 170 ml 120 ml # Voids 3 3 Objective General Appearance: WD/WN HEENT: normocephalic, atraumatic Respiratory/Chest: chest wall non-tender, lungs clear Cardiovascular: normal peripheral pulses, normal rate, regular rhythm Abdomen: normal bowel sounds, soft, non tender, no organomegaly Extremities: extreme elephantiasis Skin: no rash, no lesions Current Medications Medications (Trade) Dose Ordered Sig/Shiraz Route PRN Reason Start Time Stop Time Status Last Admin Dose Admin Acetaminophen (Tylenol) 650 mg Q4H PRN ORAL FEVER 07/30/16 22:00 08/29/16 21:59 08/01/16 15:46 Albuterol/ Ipratropium (DuoNeb 0.5-3(2.5)mg/3ml) 3 ml EVERY 4 HOURS PRN HHN Shortness of Breath 07/30/16 22:00 08/04/16 21:59 Aspirin (ASA) 162 mg DAILY ORAL 07/30/16 22:30 08/29/16 22:29 08/04/16 09:14 Diltiazem HCl (Cardizem) 10 mg EVERY HOUR PRN IV heart rate more than 120, 07/30/16 22:00 08/29/16 21:59 Docusate Sodium (Colace) 250 mg DAILY ORAL 07/31/16 18:00 08/30/16 17:59 08/04/16 09:14 Enalaprilat (Vasotec) 2.5 mg EVERY 6 HOURS PRN IV sbp more than 160 07/30/16 22:00 08/29/16 21:59 Escitalopram Oxalate (Lexapro) 10 mg DAILY ORAL 08/04/16 09:00 09/03/16 08:59 08/04/16 09:14 Heparin Sodium (Porcine) (Heparin 5000 units/ml) 5,000 units EVERY 12 HOURS SUBQ 07/30/16 23:00 08/29/16 22:59 08/04/16 09:21 Iron Sucrose/ Sodium Chloride (Venofer/Sodium Chloride) 60 ml @ 240 mls/hr BEDTIME IVPB 08/02/16 21:00 08/06/16 21:14 08/03/16 21:00 Ketorolac Tromethamine (Toradol 30mg) 30 mg Q6HR PRN IV moderate pain ( 4-6) 07/30/16 22:00 08/04/16 21:59 Lisinopril (Zestril) 10 mg DAILY ORAL 08/03/16 11:30 09/02/16 11:29 08/04/16 09:14 Morphine Sulfate 6 mg 6 mg Q4H PRN IVP For Pain 08/01/16 10:00 08/08/16 09:59 08/04/16 13:53 Nitroglycerin (Ntg) 0.4 mg Q5M PRN SL Prn Chest Pain 07/30/16 22:00 08/29/16 21:59 Ondansetron HCl (Zofran) 4 mg Q6H PRN IVP Nausea & Vomiting 07/30/16 22:00 08/29/16 21:59 07/31/16 10:43 Pantoprazole (Protonix) 40 mg DAILY ORAL 07/31/16 09:00 08/30/16 08:59 08/04/16 09:14 Polyethylene Glycol (Miralax) 17 gm DAILYPRN PRN ORAL Constipation 07/30/16 22:00 08/29/16 21:59 08/02/16 08:33 Temazepam (Restoril) 15 mg HSPRN PRN ORAL Insomnia 07/30/16 22:00 08/06/16 21:59 Vitamin A/Vitamin D (A & D Oint) 1 applic EVERY 12 HOURS TOPIC 08/02/16 21:00 09/01/16 20:59 08/04/16 09:21 RIC GONZALES Aug 04, 2016 15:00
[2016-08-05] MEDS ORDERED: MILK OF MA400 MG/51 ORAL (13:13)
[2016-08-05] MEDS ORDERED: COLACE100 MG ORAL (13:13)
[2016-08-05] MEDS ORDERED: ACETAMINOPHEN-1 EAC1 ORAL (13:13)
--- NOTE | 2016-08-05 14:05 | Discharge Summary ---
Discharge Summary Hospital Course Date of Admission Jul 30, 2016 at 21:23 Date of Discharge Aug 04, 2016 at 15:45 Admitting Diagnosis acute coronary syndrome HPI Cahrisse Couch is a 65 year old female who was admitted on Jul 30, 2016 at 21:23 for Acute Coronary Syndrome Hospital Course [id number] Discharge Discharge Disposition Patient was discharged to SNF/Subacute Facility(03) Discharge Diagnoses: Julee Gonzalez NP Aug 05, 2016 14:05
--- NOTE | 2016-08-05 23:48 | Discharge Summary 2 SIG ---
DATE OF ADMISSION: 07/30/2016 DATE OF DISCHARGE: 08/04/2016 CONSULTANTS: 1. Berny Watkins D.P.M. 2. Param Soto M.D. 3. Stanley Kay M.D. 4. Harris Ballesteros M.D. BRIEF HOSPITAL COURSE: The patient is a 65-year-old female with history of chronic obstructive pulmonary disease, congestive heart failure, and chronic lymphedema on both lower extremities, who came [place], presented to ED complaining of chest pain. She was given aspirin and nitroglycerin by EMS. The pain was described to be sharp, 8/10, and was admitted to telemetry to rule out coronary syndrome. The pain was across the chest in upper and mid abdomen as well as in the back. She was seen by Dr. Soto. The patient's electrocardiogram showed normal sinus rhythm with delay in R-wave progression, which may be secondary to lead placement, obesity, and an old anterior infarction that needs to be further evaluated. She was followed by Dr. Watkins for evaluation of chronic bilateral lower extremity lymphedema with hyperkeratosis. There were no open wounds. She underwent a venous duplex of the lower extremity which was negative for DVT. The patient was recommended she would benefit from compression therapy using compression stockings. Toenails were debrided x10. She was also seen by Infectious Disease specialist. Urine culture showed growth of ESBL E. coli, probably colonizers. She received a three-day course of IV Zosyn and was then monitored off antibiotic therapy. She had anxiety disorder. Psychiatry was consulted and was started on Lexapro 10 mg daily. She did not present any signs of ischemic heart disease. Urine culture showed growth of E. coli ESBL. She was eventually discharged home to follow up as outpatient. FINAL DIAGNOSES: 1. Leg cellulitis. 2. Urinary tract infection with E. coli ESBL. 3. Essential hypertension. 4. Chronic lymphedema of the lower legs. 5. She came in with blisters to the sacral area present on admission. 6. Depression. 7. Anxiety. 8. Morbid obesity. 9. Anemia. Lilibeth Clarke M.D. I have been assigned to dictate discharge summary on this account and I was not involved in the patient's management. Julee Gonzalez N.P. DR: HARRIETT JOB#: [id number] CC: ALEXANDREA
--- NOTE | 2016-08-06 17:30 | Diagnostic Imaging Report ---
APPROVED REPORT CPT Code: 46780 Present Symptoms Comments: R/O DVT Risk Factors Obesity Bed Rest BILATERAL: Imaging reveals a patent deep venous system bilaterally. There is no evidence of thrombus within the femoral, and popliteal segments. The greater saphenous veins are also within normal limits. Doppler indicates normal spontaneous flow within these segments. The calf veins were not well visualized, due to vessel depth, bilaterally.
== END 2016-08-04 15:45 | DRG 198 ==
LOC: EDBD 19:21 → EMR 21:21 → 2E 21:23 → EDBEDREQ 07-31 05:53
DX: R07.89 Other chest pain (principal); I25.2 Old myocardial infarction; N17.9 Acute kidney failure, unspecified; J44.1 Chronic obstructive pulmonary disease with (acute) exacerbation; N39.0 Urinary tract infection, site not specified; Z68.42 Body mass index [BMI] 45.0-49.9, adult; I10 Essential (primary) hypertension; I89.0 Lymphedema, not elsewhere classified; E66.01 Morbid (severe) obesity due to excess calories; G47.30 Sleep apnea, unspecified; L03.119 Cellulitis of unspecified part of limb; L40.9 Psoriasis, unspecified; Z88.1 Allergy status to other antibiotic agents; Z88.8 Allergy status to other drugs, medicaments and biological substances; A49.8 Other bacterial infections of unspecified site; Z16.12 Extended spectrum beta lactamase (ESBL) resistance; F41.9 Anxiety disorder, unspecified; D64.9 Anemia, unspecified; L85.9 Epidermal thickening, unspecified; Z87.891 Personal history of nicotine dependence
CPT/HCPCS: 36415; 71010; 80053; 80061; 81003; 82378; 82550; 82553; 82607; 82746; 83540; 83550; 83615; 83690; 83880; 84443; 84484; 85025; 85044; 85379; 85610; 85651; 85730; 86140; 87081; 87086; 87181; 93005; 93306; 93970; J2405

== ENCOUNTER 2016-08-05 13:03 | Emergency (ER) | payer MEDICAID, OTHER ==
[~2016-08-05] VITALS: Ht 167.6 cm; Wt 133.4 kg
[~2016-08-05 13:03] MED LIST changes: +CARAFATE1 G1 ORAL; +CARDIZEM60 MG ORAL; +HYDRALAZINE HCL10 MG ORAL; +LEXAPRO10 MG ORAL; +LORAZEPAM1 MG ORAL
[2016-08-05] MEDS ORDERED: ACETAMINOPHEN-1 EAC1 ORAL (13:13)
[2016-08-05] MEDS ORDERED: MILK OF MA400 MG/51 ORAL (13:13)
[2016-08-05] MEDS ORDERED: COLACE100 MG ORAL (13:13)
--- NOTE | 2016-08-05 13:38 | Emergency Room Report ---
History of Present Illness General Chief Complaint: Chest Pain Source: Medical Record, EMS Present Illness HPI Patient presents with complaints of chest pain She states that when she left the hospital 2 days ago she was still having chest pain Denies any headache or visual changes denies any fall or trauma Patient has history of chronic lymphedema with long-standing bilateral venous stasis ulcers Pain is a heaviness midsternal 06/18 denies any change of position denies any pleurisy Allergies: Coded Allergies: HALOPERIDOL (Verified Allergy, Unknown, 01/28/09) HALOPERIDOL LACTATE (Unverified Allergy, Unknown, 07/30/16) VANCOMYCIN (Unverified Adverse Reaction, Intermediate, Shortness of Breath , 06/26/13) Patient History Past Medical History: see triage record Pertinent Family History: none Reviewed Nursing Documentation: PMH: Agreed, PSxH: Agreed Nursing Documentation-PMH Past Medical History: No History, Except For Hx Cardiac Problems: Yes - CHF, HYPOTHRYOID Hx Hypertension: Yes Hx Pacemaker: No Hx Asthma: No Hx COPD: Yes Hx Diabetes: No Hx Cancer: No Hx Gastrointestinal Problems: No Hx Dialysis: No Hx Cerebrovascular Accident: No Hx Seizures: No Review of Systems All Other Systems: negative except mentioned in HPI Physical Exam Vital Signs Date Time Temp Pulse Resp B/P Pulse Ox O2 Delivery O2 Flow Rate FiO2 08/05/16 13:05 74 16 120/64 96 Nasal Cannula 2.0 Sp02 EP Interpretation: reviewed, normal General Appearance: well appearing, no apparent distress Head: normocephalic, atraumatic Eyes: bilateral eye EOMI, bilateral eye PERRL ENT: hearing grossly normal, normal pharynx, TMs + canals normal, uvula midline Neck: full range of motion, supple, no meningismus, no bony tend Respiratory: lungs clear, normal breath sounds, no rhonchi, no respiratory distress, no retraction, no accessory muscle use Cardiovascular #1: normal peripheral pulses, regular rate, rhythm, no gallop, no JVD, no murmur Gastrointestinal: normal bowel sounds, non tender, soft, no mass, no organomegaly, non-distended, no guarding, no hernia, no pulsatile mass, no rebound Genitourinary: no CVA tenderness Musculoskeletal: other - Bilateral lymphedema, venous stasis ulcers Neurologic: oriented x3, responsive, sensory intact Psychiatric: mood/affect normal Skin: other - As above Lymphatic: other - lymphedema Medical Decision Making Diagnostic Impression: Primary Impression: Chest pain ER Course Patient is a fairly complex patient with multiple differential to consideration including but not limited to cardiac cardiopulmonary and vascular emergencies Patient has had a fairly recent hospitalization with extensive workup At this time EKG appears fairly similar to previous Baseline blood work obtained Patient's blood work remains normal EKG is also appropriate at this time patient is stable for continued outpatient followup Labs Test 08/05/16 13:36 White Blood Count 4.3 K/UL (4.8-10.8) Red Blood Count 3.69 M/UL (4.20-5.40) Hemoglobin 9.4 G/DL (12.0-16.0) Hematocrit 30.5 % (37.0-47.0) Mean Corpuscular Volume 83 FL (80-99) Mean Corpuscular Hemoglobin 25.5 PG (27.0-31.0) Mean Corpuscular Hemoglobin Concent 30.8 G/DL (32.0-36.0) Red Cell Distribution Width 17.4 % (11.6-14.8) Platelet Count 365 K/UL (150-450) Mean Platelet Volume 5.8 FL (6.5-10.1) Neutrophils (%) (Auto) 66.3 % (45.0-75.0) Lymphocytes (%) (Auto) 23.2 % (20.0-45.0) Monocytes (%) (Auto) 7.7 % (1.0-10.0) Eosinophils (%) (Auto) 1.7 % (0.0-3.0) Basophils (%) (Auto) 1.1 % (0.0-2.0) Sodium Level 139 mEQ/L (135-145) Potassium Level 4.5 mEQ/L (3.4-4.9) Chloride Level 99 mEQ/L (98-107) Carbon Dioxide Level 23 mEQ/L (20-30) Anion Gap 17 (5-15) Blood Urea Nitrogen 13 mg/dL (7-23) Creatinine 0.8 mg/dL (0.5-0.9) Estimat Glomerular Filtration Rate > 60 mL/min (>60) Glucose Level 103 mg/dL (74-106) Calcium Level 9.1 mg/dL (8.6-10.2) Total Bilirubin 0.4 mg/dL (0.0-1.2) Aspartate Amino Transf (AST/SGOT) 12 U/L (5-40) Alanine Aminotransferase (ALT/SGPT) 5 U/L (3-33) Alkaline Phosphatase 119 U/L (35-104) Total Creatine Kinase 14 U/L (26-140) Creatine Kinase MB 2.0 ng/mL (< 3.8) Creatine Kinase MB Relative Index 14.2 Troponin I < 0.30 ng/mL (<=0.30) Total Protein 6.7 g/dL (6.6-8.7) Albumin 2.7 g/dL (3.5-5.2) Globulin 4.0 g/dL Albumin/Globulin Ratio 0.6 (1.0-2.7) EKG Diagnostic Results Rate: normal Rhythm: NSR ST Segments: other - nonspecific ST AND T-wave changes Rhythm Strip Diag. Results EP Interpretation: yes Rate: 77 Rhythm: NSR, no PVC's, no ectopy Last Vital Signs Date Time Temp Pulse Resp B/P Pulse Ox O2 Delivery O2 Flow Rate FiO2 08/05/16 13:05 74 16 120/64 96 Nasal Cannula 2.0 Status: improved Disposition: XFER SNF Condition: Improved Referrals: NON PHYSICIAN (PCP) Additional Instructions: Patient is provided with the discharge instructions notified to follow up with primary doctor in the next 2-3 days otherwise return to the er with any worsening symptoms. Please note that this report is being documented using [employer] technology. This can lead to erroneous entry secondary to incorrect interpretation by the dictating instrument. KANDY RUELAS D.O. Aug 05, 2016 13:38
[2016-08-05 13:48] LABS: BASOPHILS % (AUTO) 1.1 % (0.0-2.0); EOSINOPHILS % (AUTO) 1.7 % (0.0-3.0); LYMPHOCYTES % (AUTO) 23.2 % (20.0-45.0); MEAN CORPUSCULAR HEMOGLOBIN 25.5 PG (27.0-31.0); MEAN CORPUSCULAR HGB CONC 30.8 G/DL (32.0-36.0); MEAN CORPUSCULAR VOLUME 83 FL (80-99); MEAN PLATELET VOLUME 5.8 FL (6.5-10.1); MONOCYTES % (AUTO) 7.7 % (1.0-10.0); NEUTROPHILS % (AUTO) 66.3 % (45.0-75.0); PLATELET COUNT 365 K/UL (150-450); RED BLOOD COUNT 3.69 M/UL (4.20-5.40); RED CELL DISTRIBUTION WIDTH 17.4 % (11.6-14.8); WHITE BLOOD COUNT 4.3 K/UL (4.8-10.8)
[2016-08-05 14:00] VITALS: BP 122/64
[2016-08-05 14:12] LABS: TROPONIN I < 0.30 ng/mL (<=0.30)
[2016-08-05 14:13] LABS: ALANINE AMINOTRANSFERASE 5 U/L (3-33); ALBUMIN/GLOBULIN RATIO 0.6 (1.0-2.7); ANION GAP 17 (5-15); ASPARTATE AMINO TRANSFERASE 12 U/L (5-40); CALCIUM 9.1 mg/dL (8.6-10.2); CARBON DIOXIDE 23 mEQ/L (20-30); CHLORIDE 99 mEQ/L (98-107); CREATININE 0.8 mg/dL (0.5-0.9); GLOMERULAR FILTRATION RATE > 60 mL/min (>60); HEMOLYSIS 4; POTASSIUM 4.5 mEQ/L (3.4-4.9); SODIUM 139 mEQ/L (135-145); TOTAL PROTEIN 6.7 g/dL (6.6-8.7)
[2016-08-05] MEDS ORDERED: Morphine Sulfate 4mg/ml Inj ONE (14:32)
[2016-08-05] MEDS ORDERED: Morphine Sulfate 4mg/ml Inj IM ONE (14:45)
[2016-08-05 14:52] VITALS: BP 124/67
[2016-08-05 14:56] VITALS: BP 124/67
--- NOTE | 2016-08-06 13:18 | Cardiology Report ---
APPROVED REPORT EKG Measurement Heart [id number] Normal sinus rhythm Inferior infarct, age undetermined Anterior infarct, age undetermined Abnormal ECG
== END 2016-08-05 14:58 ==
LOC: EDBD 13:03 → EMR 13:25
DX: R07.9 Chest pain, unspecified (principal); I89.0 Lymphedema, not elsewhere classified; I50.9 Heart failure, unspecified; E03.9 Hypothyroidism, unspecified; I10 Essential (primary) hypertension; J44.9 Chronic obstructive pulmonary disease, unspecified
CPT/HCPCS: 36415; 80053; 82550; 82553; 84484; 85025; 93005; 96372; 99285; J2270; 99283

== ENCOUNTER 2016-11-27 12:41 | Inpatient (IN) | payer MEDICAID, OTHER ==
[~2016-11-27] VITALS: Ht 170.2 cm; Wt 111.1 kg
[~2016-11-27 12:41] MED LIST changes: +COLACE100 MG ORAL
--- NOTE | 2016-11-27 13:00 | Emergency Room Report ---
History of Present Illness General Chief Complaint: Altered Mental Status Source: Patient, Medical Record, EMS Present Illness HPI 66-year-old female history of COPD, dementia, chronic lymphedema presents with altered mental status. Unknown the patient's baseline however patient is currently AOx3. EMS states that patient has been more altered than her normal period patient is a poor historian however she is preoccupied with certain subjects during history taking. Patient currently denying any pain. Patient currently denying any fever chills cough shortness of breath chest pain or abdominal pain. Patient does complain of intermittent vomiting unclear duration Allergies: Coded Allergies: HALOPERIDOL (Verified Allergy, Unknown, 01/28/09) HALOPERIDOL LACTATE (Unverified Allergy, Unknown, 07/30/16) VANCOMYCIN (Unverified Adverse Reaction, Intermediate, Shortness of Breath , 06/26/13) Patient History Past Medical History: see triage record Past Surgical History: unable to obtain Pertinent Family History: unable to obtain Now: No Nursing Documentation-PMH Hx Cardiac Problems: Yes - HEART FAILURE UNSPECIFIED Hx Hypertension: Yes Hx Asthma: No Hx COPD: Yes Hx Diabetes: No Hx Cancer: No Hx Gastrointestinal Problems: Yes - GERD Hx Dialysis: No History Of Psychiatric Problem: Yes - DEPRESSIVE Hx Cerebrovascular Accident: No Hx Seizures: No Physical Exam Vital Signs Date Time Temp Pulse Resp B/P Pulse Ox O2 Delivery O2 Flow Rate FiO2 11/27/16 12:30 98.1 73 18 145/105 99 Nasal Cannula 2.0 Sp02 EP Interpretation: reviewed, normal General Appearance: normal inspection, no apparent distress, alert, non-toxic, other - Middle aged female awake and alert, oriented x3 however confused and preoccupied about certain subjects such as food. Not answering all questions appropriately Head: normocephalic, atraumatic Eyes: bilateral eye EOMI, bilateral eye PERRL, bilateral eye normal inspection ENT: normal ENT inspection, normal pharynx, normal voice, moist mucus membranes Neck: normal inspection, full range of motion, supple Respiratory: normal inspection, lungs clear, normal breath sounds, no respiratory distress, no retraction, no wheezing, speaking full sentences, chest symmetrical Cardiovascular #1: normal inspection, regular rate, rhythm, no edema, normal capillary refill Gastrointestinal: normal inspection, non tender, soft, non-distended, no guarding Musculoskeletal: normal inspection, back normal, normal range of motion, non- tender Neurologic: normal inspection, alert, oriented x3, responsive, motor strength/ tone normal, sensory intact, normal gait, speech normal Psychiatric: normal inspection, judgement/insight normal, memory normal Skin: normal inspection, well hydrated, other - Chronic lymphedema of bilateral lower extremities Medical Decision Making Diagnostic Impression: Primary Impression: Altered mental status Additional Impression: UTI (urinary tract infection) ER Course 66 yo F [place] for ams pateint currently aox3 however rambling confusing/preoccupied with certain subjects DDX: AMS - infectious UTI/PNA, electrolyte disturbance, dehydration, cardiac Plan: labs, ekg, cxr, ua, ucx will hold CT head at this time - no syncopal episode, no trauma, aox3 at this time no neuro deficits ER course: Labs: ua prelim positive EKG: NSR no acute STT changes CXR: mild cardiomegaly / poss L sided pleural effusion Disposition: Patient is to be admitted for AMS to med surg for UTI Signed out patient to Dr Lindquist -66 yo F with ams/confusion -pending all labs -already received abx for prelim UA likely uti -admit EKG Diagnostic Results Rate: normal Rhythm: NSR ST Segments: no acute changes ASA given to the pt in ED: No Rhythm Strip Diag. Results EP Interpretation: yes Rhythm: NSR, no PVC's, no ectopy Chest X-Ray Diagnostic Results Chest X-Ray Diagnostic Results : # of Views/Limited/Complete: 1 View Indication: Other EP Interpretation: Yes Interpretation: other - possible L sided pleural effusion Impression: Other - possible L sided pleraul effusion Interpreting ER Provider: Electronically signed by Pineda Mckenzie M.D. Last Vital Signs Date Time Temp Pulse Resp B/P Pulse Ox O2 Delivery O2 Flow Rate FiO2 11/27/16 12:30 98.1 73 18 145/105 99 Nasal Cannula 2.0 Disposition: ADMITTED INPATIENT Condition: Pineda Covington M.D. Nov 27, 2016 13:00
[2016-11-27] MEDS ORDERED: LORazepam Inj 2mg/ml 1ml IV ONE (13:30)
[2016-11-27 14:09] VITALS: BP 166/105
[2016-11-27 14:15] LABS: APPEARANCE,URINE CLOUDY; KETONES,URINE NEGATIVE (NEGATIVE); LEUKOCYTE ESTERASE ,URINE 3+ (NEGATIVE); NITRITE,URINE POSITIVE (NEGATIVE); PH,URINE 7 (4.5-8.0); PROTEIN,URINE 3+ (NEGATIVE); UROBILINOGEN,URINE NORMAL MG/DL (0.0-1.0)
[2016-11-27 14:29] LABS: BACTERIA,URINE MANY /HPF; SQUAMOUS EPITHELIAL CELL,UR FEW /LPF (NONE/OCC); WBC,URINE 60-80 /HPF (0 - 2)
[2016-11-27] MEDS ORDERED: cefTRIAXone 1 GM in NS 55 ML IVPB ONE (14:30)
[2016-11-27 15:15] LABS: EOSINOPHILS % (AUTO) 1.6 % (0.0-3.0); LYMPHOCYTES % (AUTO) 26.2 % (20.0-45.0); MEAN CORPUSCULAR HEMOGLOBIN 27.2 PG (27.0-31.0); MEAN CORPUSCULAR HGB CONC 32.1 G/DL (32.0-36.0); MEAN CORPUSCULAR VOLUME 85 FL (80-99); MEAN PLATELET VOLUME 6.3 FL (6.5-10.1); MONOCYTES % (AUTO) 7.3 % (1.0-10.0); NEUTROPHILS % (AUTO) 63.9 % (45.0-75.0); PLATELET COUNT 166 K/UL (150-450); RED BLOOD COUNT 4.28 M/UL (4.20-5.40); WHITE BLOOD COUNT 5.5 K/UL (4.8-10.8)
[2016-11-27 15:27] LABS: ALANINE AMINOTRANSFERASE 11 U/L (3-33); ALBUMIN/GLOBULIN RATIO 1.3 (1.0-2.7); ANION GAP 13 (5-15); ASPARTATE AMINO TRANSFERASE 14 U/L (5-40); CALCIUM 9.3 mg/dL (8.6-10.2); CARBON DIOXIDE 25 mEQ/L (20-30); CHLORIDE 102 mEQ/L (98-107); GLOMERULAR FILTRATION RATE 55.8 mL/min (>60); HEMOLYSIS 10; POTASSIUM 4.1 mEQ/L (3.4-4.9); SODIUM 140 mEQ/L (135-145); TOTAL PROTEIN 7.2 g/dL (6.6-8.7); TROPONIN I < 0.30 ng/mL (<=0.30)
[2016-11-27 15:37] LABS: CKMB < 1.5 ng/mL (< 3.8)
[2016-11-27 15:53] VITALS: BP 158/98
[2016-11-27 16:00] VITALS: BP 158/84
[2016-11-27] MEDS ORDERED: Miralax 17gm pkt ORAL PRN (16:15)
[2016-11-27] MEDS ORDERED: DuoNeb 0.5-3(2.5)mg/3ml neb HHN PRN (16:15)
[2016-11-27] MEDS ORDERED: Milk of Magnesia 30ml Ud ORAL PRN (16:15)
--- NOTE | 2016-11-27 16:19 | History and Physical ---
History of Present Illness General Date patient seen: Nov 27, 2016 Time patient seen: 15:30 Reason for Hospitalization: Altered Mental Status Present Illness HPI 66-year-old female with PMH of COPD, dementia, chronic lymphedema, HTN, hypothyroidism, CHF with diastolic dysfunction presented with altered mental status. Patient had been more altered than usual , patient was unable to provide good history she denied any kind of pain she reported dysuria and suprapubic discomfort x 1 week denied fever, chills she denied shortness of breath , chest pain Workup in ED revealed no leukocytosis, no fever UA was grossly positive for UTI CXR no acute cardiopulmonary pathology, + CM e/lytes stable CT head not done due to lack of focal deficits, no trauma, no injury , no syncope patient was given 1 L of fluid, started on empiric abx and admitted to [facility] floor for further management Allergies: Coded Allergies: HALOPERIDOL (Verified Allergy, Unknown, 01/28/09) HALOPERIDOL LACTATE (Unverified Allergy, Unknown, 07/30/16) VANCOMYCIN (Unverified Adverse Reaction, Intermediate, Shortness of Breath , 06/26/13) Medication History Scheduled Diltiazem Hcl* (Cardizem*), 60 MG ORAL EVERY 8 HOURS, (Reported) Docusate Sodium* (Colace*), 100 MG ORAL DAILY, (Reported) Escitalopram Oxalate* (Lexapro*), 10 MG ORAL DAILY, (Reported) Hydralazine Hcl* (Hydralazine Hcl*), 10 MG ORAL EVERY 6 HOURS, (Reported) Magnesium Hydroxide* (Milk Of Magnesia*), 30 ML ORAL DAILY, (Reported) Sucralfate* (Carafate*), 1 GM ORAL FOUR TIMES A DAY, (Reported) Scheduled PRN Acetaminophen With Codeine (T#3) (Tylenol #3 Tab*), 1 TAB ORAL Q6H PRN for For Pain, (Reported) Patient History History Provided By: Patient, Medical Record Healthcare decision maker Resuscitation status Advanced Directive on File Past Medical/Surgical History Past Medical/Surgical History: (1) Lymphedema (2) Constipation (3) Essential hypertension (4) Obesity (5) Smoker (6) Onychomycosis Physical Exam General Appearance: no apparent distress, alert - responsive, confused Lines, tubes and drains: peripheral HEENT: normocephalic, atraumatic, anicteric, mucous membranes moist, PERRL Neck: supple Respiratory/Chest: lungs clear - with moderate air exchange , no accessory muscle use, respiratory distress Cardiovascular/Chest: normal peripheral pulses, normal rate, no JVD Abdomen: normal bowel sounds, non tender, soft - obese Extremities: normal range of motion, non-tender, no calf tenderness, other - BLE +2 (chronic) Skin Exam: warm/dry Neurologic: no motor/sensory deficits, abnormal gait - with assistive device , alert, responsive, other - no gross focal, moves all extremitties, Musculoskeletal: atrophy Last 24 Hour Vital Signs Date Time Temp Pulse Resp B/P Pulse Ox O2 Delivery O2 Flow Rate FiO2 11/27/16 15:55 98.1 68 18 158/98 99 Nasal Cannula 2.0 11/27/16 15:53 98.1 68 18 158/98 99 Nasal Cannula 2.0 11/27/16 14:09 98.1 71 18 166/105 99 Nasal Cannula 2.0 11/27/16 12:30 98.1 73 18 145/105 99 Nasal Cannula 2.0 Laboratory Tests Test 11/27/16 14:00 11/27/16 14:45 Urine Color Yellow Urine Appearance Cloudy Urine pH 7 (4.5-8.0) Urine Specific [place] 1.005 (1.005-1.035) Urine Protein 3+ (NEGATIVE) H Urine Glucose (UA) Negative (NEGATIVE) Urine Ketones Negative (NEGATIVE) Urine Occult Blood 4+ (NEGATIVE) H Urine Nitrite Positive (NEGATIVE) H Urine Bilirubin Negative (NEGATIVE) Urine Urobilinogen Normal MG/DL (0.0-1.0) Urine Leukocyte Esterase 3+ (NEGATIVE) H Urine RBC 5-10 /HPF (0 - 2) H Urine WBC 60-80 /HPF (0 - 2) H Urine Squamous Epithelial Cells Few /LPF (NONE/OCC) Urine Bacteria Many /HPF (NONE) H White Blood Count 5.5 K/UL (4.8-10.8) Red Blood Count 4.28 M/UL (4.20-5.40) Hemoglobin 11.6 G/DL (12.0-16.0) L Hematocrit 36.2 % (37.0-47.0) L Mean Corpuscular Volume 85 FL (80-99) Mean Corpuscular Hemoglobin 27.2 PG (27.0-31.0) Mean Corpuscular Hemoglobin Concent 32.1 G/DL (32.0-36.0) Red Cell Distribution Width 16.0 % (11.6-14.8) H Platelet Count 166 K/UL (150-450) Mean Platelet Volume 6.3 FL (6.5-10.1) L Neutrophils (%) (Auto) 63.9 % (45.0-75.0) Lymphocytes (%) (Auto) 26.2 % (20.0-45.0) Monocytes (%) (Auto) 7.3 % (1.0-10.0) Eosinophils (%) (Auto) 1.6 % (0.0-3.0) Basophils (%) (Auto) 1.0 % (0.0-2.0) Sodium Level 140 mEQ/L (135-145) Potassium Level 4.1 mEQ/L (3.4-4.9) Chloride Level 102 mEQ/L (98-107) Carbon Dioxide Level 25 mEQ/L (20-30) Anion Gap 13 (5-15) Blood Urea Nitrogen 27 mg/dL (7-23) H Creatinine 1.0 mg/dL (0.5-0.9) H Estimat Glomerular Filtration Rate 55.8 mL/min (>60) Glucose Level 97 mg/dL (74-106) Lactic Acid Level 0.90 mmol/L (0.66-2.22) Calcium Level 9.3 mg/dL (8.6-10.2) Total Bilirubin 0.3 mg/dL (0.0-1.2) Aspartate Amino Transf (AST/SGOT) 14 U/L (5-40) Alanine Aminotransferase (ALT/SGPT) 11 U/L (3-33) Alkaline Phosphatase 84 U/L (35-104) Total Creatine Kinase 21 U/L (26-140) L Creatine Kinase MB Pending Troponin I < 0.30 ng/mL (<=0.30) Total Protein 7.2 g/dL (6.6-8.7) Albumin 4.1 g/dL (3.5-5.2) Globulin 3.1 g/dL Albumin/Globulin Ratio 1.3 (1.0-2.7) Height (Feet): 5 Height (Inches): 7.00 Weight (Pounds): 245 Medications Current Medications Medications (Trade) Dose Ordered Sig/Shiraz Route PRN Reason Start Time Stop Time Status Last Admin Dose Admin Sodium Chloride (Sodium Chloride 1000ml bag) 1,000 ml @ 150 mls/hr Q6H40M IV 11/27/16 14:30 12/27/16 14:29 11/27/16 14:48 Assessment/Plan Assessment/Plan ASSESSMENT acute encephalopathy 2 to infectious process UTI hx of recurrent UTI ESBL diastolic dysfunction essential HTN mild dehydration morbid obesity COPD PLAN OF CARE [facility] floor abx fup with cx ID consult CT on hold, no neuro deficits, no trauma, no syncope BP management ECHO recently done, revealed pEF, + diastolic dysfunction, at this time no evidence of decompensation O2 prn to keep sat above 92% HHN prn s/p 1 L of IVF in ED, monitor renal parameters, lytes, replace as needed DVT GI prophylaxis PT/OT fall precautions Bowel regimen case discussed and evaluated by supervising physician Andrés (Tristan),Luz ALVARADO Nov 27, 2016 16:19
[2016-11-27 16:23] VITALS: BP 158/84
[2016-11-27] MEDS: Piperacillin/Tazobactam 3.375 GM in D5W 110 ML IVPB SCH (18:01)
[2016-11-27] MEDS: Morphine Sulfate 2mg/ml Inj IVP PRN ×2 (18:03→22:08)
[2016-11-27] MEDS: Sucralfate 1gm tab ORAL SCH ×2 (18:07→20:01)
[2016-11-27] MEDS: HydrALAZINE 10mg Tab ORAL SCH (18:07)
[2016-11-27 20:00] VITALS: BP 156/111
[2016-11-27] MEDS: Mylanta II UD 30ml ORAL PRN (20:01)
[2016-11-27] MEDS: Heparin 5000 units/ml inj SUBQ SCH (20:02)
[2016-11-28] VITALS: BP 148/87
[2016-11-28] MEDS: HydrALAZINE 10mg Tab ORAL SCH ×2 (00:57→06:17)
[2016-11-28] MEDS: Morphine Sulfate 2mg/ml Inj IVP PRN ×6 (02:12→22:22)
[2016-11-28 04:00] VITALS: BP 143/83
[2016-11-28] MEDS: Piperacillin/Tazobactam 3.375 GM in D5W 110 ML IVPB SCH ×3 (06:16→22:08)
[2016-11-28 07:51] LABS: EOSINOPHILS % (AUTO) 2.6 % (0.0-3.0); LYMPHOCYTES % (AUTO) 38.5 % (20.0-45.0); MEAN CORPUSCULAR HEMOGLOBIN 26.4 PG (27.0-31.0); MEAN CORPUSCULAR VOLUME 85 FL (80-99); MEAN PLATELET VOLUME 6.5 FL (6.5-10.1); MONOCYTES % (AUTO) 8.3 % (1.0-10.0); NEUTROPHILS % (AUTO) 49.6 % (45.0-75.0); PLATELET COUNT 153 K/UL (150-450); RED BLOOD COUNT 4.14 M/UL (4.20-5.40); RED CELL DISTRIBUTION WIDTH 15.8 % (11.6-14.8); WHITE BLOOD COUNT 3.5 K/UL (4.8-10.8)
[2016-11-28] MEDS: Mylanta II UD 30ml ORAL PRN (07:54)
[2016-11-28 08:00] VITALS: BP 149/104
[2016-11-28 08:20] LABS: ANION GAP 11 (5-15); CALCIUM 9.4 mg/dL (8.6-10.2); CARBON DIOXIDE 29 mEQ/L (20-30); CHLORIDE 105 mEQ/L (98-107); CHOLESTEROL 143 mg/dL (< 200); CHOLESTEROL/HDL RATIO 2.8 (3.3-4.4); CREATININE 0.9 mg/dL (0.5-0.9); GLOMERULAR FILTRATION RATE > 60 mL/min (>60); HEMOLYSIS 3; LDL CHOLESTEROL (CALC.) 66 mg/dL (60-99); POTASSIUM 4.1 mEQ/L (3.4-4.9); SODIUM 145 mEQ/L (135-145)
[2016-11-28] MEDS: Sucralfate 1gm tab ORAL SCH ×5 (09:55→22:04)
[2016-11-28] MEDS: Heparin 5000 units/ml inj SUBQ SCH ×2 (09:57→22:08)
--- NOTE | 2016-11-28 10:29 | Diagnostic Imaging Report ---
Indication: Chest pain Technique: XRAY CHEST 1 V Comparison: 08/01/16 Findings: Cardiac silhouette is prominent. There is no consolidation or pleural effusion. Osseous structures are grossly stable. Impression: No acute cardiopulmonary disease. Cardiomegaly.
--- NOTE | 2016-11-28 11:53 | Pulmonology Progress Note ---
Assessment/Plan Assessment/Plan ASSESSMENT acute encephalopathy 2 to infectious process UTI hx of recurrent UTI ESBL diastolic dysfunction essential HTN mild dehydration morbid obesity COPD PLAN OF CARE [facility] floor abx fup with cx ID consult CT on hold, no neuro deficits, no trauma, no syncope BP management with BB and Hydralazine , increase Hydralazine dose ECHO recently done, revealed pEF, + diastolic dysfunction, at this time no evidence of decompensation O2 prn to keep sat above 92% HHN prn s/p 1 L of IVF in ED, monitor renal parameters, lytes, replace as needed a/emetic prn swallow eval in am DVT GI prophylaxis PT/OT fall precautions Bowel regimen case discussed and evaluated by supervising physician Subjective Allergies: Coded Allergies: HALOPERIDOL (Verified Allergy, Unknown, 01/28/09) HALOPERIDOL LACTATE (Unverified Allergy, Unknown, 07/30/16) VANCOMYCIN (Unverified Adverse Reaction, Intermediate, Shortness of Breath , 06/26/13) Subjective no leukocytosis, no fever reported nausea, no vomiting, stated she can not eat certain foods after she swallowed gum? BP elevated Objective Last 24 Hour Vital Signs Date Time Temp Pulse Resp B/P Pulse Ox O2 Delivery O2 Flow Rate FiO2 11/28/16 10:49 97.9 11/28/16 09:52 72 18 Nasal Cannula 2.0 11/28/16 09:51 Nasal Cannula 2.0 11/28/16 08:00 97.9 87 18 149/104 97 Nasal Cannula 11/28/16 06:17 143/83 11/28/16 06:16 67 143/83 11/28/16 04:00 97.5 67 20 143/83 95 Nasal Cannula 2.0 11/28/16 00:57 148/87 11/28/16 00:00 97.3 73 20 148/87 97 Nasal Cannula 2.0 11/27/16 22:07 75 156/111 11/27/16 20:15 Nasal Cannula 2.0 28 11/27/16 20:15 95 Nasal Cannula 75.0 28 11/27/16 20:15 75 16 Nasal Cannula 2.0 28 11/27/16 20:00 97.5 84 20 156/111 95 Nasal Cannula 2.0 11/27/16 18:07 158/84 11/27/16 16:23 97.5 64 20 158/84 97 Nasal Cannula 2.0 11/27/16 16:00 98.0 64 20 158/84 97 Nasal Cannula 2.0 11/27/16 15:55 98.1 68 18 158/98 99 Nasal Cannula 2.0 11/27/16 15:53 98.1 68 18 158/98 99 Nasal Cannula 2.0 11/27/16 14:09 98.1 71 18 166/105 99 Nasal Cannula 2.0 11/27/16 12:30 98.1 73 18 145/105 99 Nasal Cannula 2.0 Intake and Output 11/27/16 11/28/16 19:00 07:00 Intake Total 320 ml 110.0 ml Output Total 300 ml Balance 20 ml 110.0 ml Intake Oral 320 ml IV Total 110.0 ml Output Urine Total 200 ml Emesis 100 ml # Voids 1 3 Objective General Appearance: no apparent distress, alert, responsive, confused Lines, tubes and drains: peripheral HEENT: normocephalic, atraumatic, anicteric, mucous membranes moist, PERRL Neck: supple Respiratory/Chest: lungs clear - with moderate air exchange , no accessory muscle use, respiratory distress Cardiovascular/Chest: normal peripheral pulses, normal rate, no JVD Abdomen: normal bowel sounds, non tender, soft - obese Extremities: normal range of motion, non-tender, no calf tenderness, other - BLE +2 (chronic) Skin Exam: warm/dry Neurologic: no motor/sensory deficits, abnormal gait - with assistive device , alert, responsive, no gross focal, moves all extremities, Musculoskeletal: atrophy Microbiology Date/Time Source Procedure Growth Status 11/27/16 14:00 Urine,Clean Catch Urine Culture - Preliminary Gram Negative Bacillus 1 Resulted Laboratory Tests 11/27/16 14:00: Urine Color Yellow, Urine Appearance Cloudy, Urine pH 7, Urine Specific [place] 1.005, Urine Protein 3+H, Urine Glucose (UA) Negative, Urine Ketones Negative, Urine Occult Blood 4+H, Urine Nitrite PositiveH, Urine Bilirubin Negative, Urine Urobilinogen Normal, Urine Leukocyte Esterase 3+H, Urine RBC 5-10H, Urine WBC 60-80H, Urine Squamous Epithelial Cells Few, Urine Bacteria ManyH 11/27/16 14:45: White Blood Count 5.5, Red Blood Count 4.28, Hemoglobin 11.6L, Hematocrit 36.2L , Mean Corpuscular Volume 85, Mean Corpuscular Hemoglobin 27.2, Mean Corpuscular Hemoglobin Concent 32.1, Red Cell Distribution Width 16.0H, Platelet Count 166, Mean Platelet Volume 6.3L, Neutrophils (%) (Auto) 63.9, Lymphocytes (%) (Auto) 26.2, Monocytes (%) (Auto) 7.3, Eosinophils (%) (Auto) 1.6, Basophils (%) (Auto) 1.0, Sodium Level 140, Potassium Level 4.1, Chloride Level 102, Carbon Dioxide Level 25, Anion Gap 13, Blood Urea Nitrogen 27H, Creatinine 1.0H, Estimat Glomerular Filtration Rate 55.8, Glucose Level 97, Lactic Acid Level 0.90, Calcium Level 9.3, Total Bilirubin 0.3, Aspartate Amino Transf (AST/SGOT) 14, Alanine Aminotransferase (ALT/SGPT) 11, Alkaline Phosphatase 84, Total Creatine Kinase 21L, Creatine Kinase MB < 1.5, Creatine Kinase MB Relative Index , Troponin I < 0.30, Total Protein 7.2, Albumin 4.1, Globulin 3.1, Albumin/Globulin Ratio 1.3 11/28/16 06:25: White Blood Count 3.5L, Red Blood Count 4.14L, Hemoglobin 11.0L, Hematocrit 35.3L, Mean Corpuscular Volume 85, Mean Corpuscular Hemoglobin 26.4L, Mean Corpuscular Hemoglobin Concent 31.0L, Red Cell Distribution Width 15.8H, Platelet Count 153, Mean Platelet Volume 6.5, Neutrophils (%) (Auto) 49.6, Lymphocytes (%) (Auto) 38.5, Monocytes (%) (Auto) 8.3, Eosinophils (%) (Auto) 2.6, Basophils (%) (Auto) 1.0, Sodium Level 145, Potassium Level 4.1, Chloride Level 105, Carbon Dioxide Level 29, Anion Gap 11, Blood Urea Nitrogen 27H, Creatinine 0.9, Estimat Glomerular Filtration Rate > 60, Glucose Level 99, Calcium Level 9.4, Pro-B-Type Natriuretic Peptide 407H, Triglycerides Level 132 , Cholesterol Level 143, LDL Cholesterol 66, HDL Cholesterol 51, Cholesterol/ HDL Ratio 2.8L, Thyroid Stimulating Hormone (TSH) 1.840 Current Medications Medications (Trade) Dose Ordered Sig/Shiraz Route PRN Reason Start Time Stop Time Status Last Admin Dose Admin Acetaminophen (Tylenol) 650 mg Q4H PRN ORAL Mild Pain (Pain Scale 1-3) 11/27/16 16:15 12/27/16 16:14 Al Hydroxide/Mg Hydroxide (Mylanta II) 30 ml Q6H PRN ORAL dyspepsia 11/27/16 16:15 12/27/16 16:14 11/28/16 07:54 Albuterol/ Ipratropium (DuoNeb 0.5-3(2.5)mg/3ml) 3 ml Q4H PRN HHN Shortness of Breath 11/27/16 16:15 12/02/16 16:14 Dextrose (Dextrose 50%) STAT PRN IV Hypoglycemia 11/27/16 16:15 12/27/16 16:14 Diltiazem HCl (Cardizem) 60 mg EVERY 8 HOURS ORAL 11/27/16 22:00 12/27/16 21:59 11/28/16 06:16 Escitalopram Oxalate (Lexapro) 10 mg DAILY ORAL 11/28/16 09:00 12/28/16 08:59 11/28/16 09:55 Heparin Sodium (Porcine) (Heparin 5000 units/ml) 5,000 units EVERY 12 HOURS SUBQ 11/27/16 21:00 12/27/16 20:59 11/28/16 09:57 Hydralazine HCl (Apresoline) 10 mg EVERY 6 HOURS ORAL 11/27/16 18:00 12/27/16 17:59 11/28/16 06:17 Magnesium Hydroxide (Mom) 30 ml HSPRN PRN ORAL Constipation 11/27/16 16:15 12/27/16 16:14 Morphine Sulfate (Morphine Sulfate) 2 mg Q4H PRN IVP PAIN 4-10 11/27/16 18:00 12/04/16 17:59 11/28/16 10:19 Nitroglycerin (Ntg) 0.4 mg Q5M X 3 DOSES PRN SL Prn Chest Pain 11/27/16 16:15 12/27/16 16:14 Ondansetron HCl (Zofran) 4 mg Q6H PRN IVP Nausea & Vomiting 11/27/16 16:15 12/27/16 16:14 11/28/16 07:32 Piperacillin Sod/ Tazobactam Sod/ Dextrose (Zosyn/D5W) 110 ml @ 27.5 mls/hr EVERY 8 HOURS IVPB 11/27/16 18:00 12/02/16 17:59 11/28/16 06:16 Polyethylene Glycol (Miralax) 17 gm HSPRN PRN ORAL Constipation 11/27/16 16:15 12/27/16 16:14 Ranitidine HCl (Zantac) 150 mg TWICE A DAY ORAL 11/27/16 18:00 12/27/16 17:59 11/28/16 09:55 Sucralfate 1 gm 1 gm FOUR TIMES A DAY ORAL 11/27/16 18:00 12/27/16 17:59 11/28/16 09:55 Temazepam (Restoril) 15 mg HSPRN PRN ORAL Insomnia 11/27/16 16:15 12/04/16 16:14 Andrés ([facility])Luz NP Nov 28, 2016 11:53
[2016-11-28 12:00] VITALS: BP 137/76
[2016-11-28] MEDS: HydrALAZINE 25mg tab ORAL SCH ×2 (13:28→22:05)
[2016-11-28] MEDS ORDERED: Metoclopramide 10mg/2ml Inj IVP PRN (13:30)
[2016-11-28] MEDS ORDERED: NS 275ml ONE (15:04)
[2016-11-28] MEDS ORDERED: Tubing IV Secondary IV ONE (15:04)
[2016-11-28 16:00] VITALS: BP 138/77
--- NOTE | 2016-11-28 16:14 | Infectious Diseases Prog Note ---
Infectious Disease Consult Infectious Disease Consult Infectious Disease Consult INFECTIOUS DISEASE CONSULTATION DATE OF CONSULTATION: 11/28/16 CONSULTING PHYSICIAN: Dirk Okeefe M.D., MTM&H, CTropMed Covering for Dr. Kay REFERRING PHYSICIAN: Lilibeth Clarke M.D REASON FOR CONSULTATION: altered mental status HISTORY OF PRESENT ILLNESS: 66-year-old WF history of COPD, dementia, chronic lymphedema with severely lichenified skin presents with altered mental status. Patient's mentation much improved today, and she reports feeling much better on D#1 of empiric IV zosyn. She denies f/c, h/a, new skin problems, cough, chest pain, sore throat, but she reports she did have some dysuria for the past few days and 2-3 days of nauses, emesis, and increased eructation. 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 ALLERGIES: Allergic to haloperidol and vancomycin. MEDICATIONS: IV zosyn 3.375gm q8hr (11/27/16-- Tylenol PRN, mylanta, Cardizem 60mg q8hr, lexapro, heparin 5000u SQ q12hr, hydralazine, duonebs, reglan, milk of mag, morphine sulfate prn, zofran prn, zantac, sucralfate, temazepam SOCIAL HISTORY: She is a [facility] resident. denies illicit drug use PHYSICAL EXAMINATION: VITAL SIGNS: reviewed. she has been afebrile, hemodynamically stable. GENERAL APPEARANCE: obese. awake, alert, pleasant, reports feeling much better today. HEAD AND NECK: Normocephalic. neck supple HEART: rrr, no murmurs, PMI displaced laterally LUNGS: CTA b/l ABDOMEN: Obese and soft, nttp, no rebound, no guarding. EXTREMITIES: Bilateral lymphedema. Bilateral chronic ischemic changes with hyperkeratotic lesions, severe lichenification, and severe onychomycosis. LABORATORY DATA: WBC 3.5, hgb 11, plt 153, N 49.6%, eos 2.6%, BMP 145/4.1/105/ 29/27/0.9/99 LAC 0.9 Ca 9.4, t bili 0.3, alk phos 84, ast 14, alt 11, troponin neg, BNP 407 prot 7.2, alb 4.1, TB 132, chol 143, TSH 1.84 u/a 3+ protein, pos nit, 3+ LE, 60-80 WBC Ucx: >100k cfu GNR (pending ident) blood cx (11/27 pending) Radiology: Procedure: XRAY Chest 1v, 11/27/16 Technique: XRAY CHEST 1 V Comparison: 08/01/16 Findings: Cardiac silhouette is prominent. There is no consolidation or pleural effusion. Osseous structures are grossly stable. Impression: No acute cardiopulmonary disease. Cardiomegaly. IMPRESSION: 1. Gram negative urosepsis. h/o ESBL E coli in the urine, but patient's mentation is back to baseline today, so clinically seems to be responding. 2> Chronic lymphedema of legs. no active cellulitis. has venous stasis with severe lichenification. The patient was seen by railway engineer that ordered vascular studies. 2. Morbid obesity. 3. Anemia. 4. Congestive heart failure, chronic. PCXR with cardiomegaly but no pna or effusion. 5. Depression. 6. Chronic obstructive pulmonary disease. 7. onychomycosis. chronic. can consider lamisil as outpatient with her primary care physician. 8. N/V. improved. likely related to #1. 9. afebrile 10. no leukocytosis 11. no acid/base disturbance 12. mild pre-renal azotemia RECOMMENDATIONS: --continue empiric IV zosyn D#1 --f/u ucx --f/u blood cx --final abx recs pending ident/sens of the urine GNR that should be available tomorrow. Thank you for this consultation. Will continue to follow. Covering for Dr. Kay, please call me with questions, Dirk Okeefe M.D. Nov 28, 2016 16:14
--- NOTE | 2016-11-28 17:01 | Cardiology Report ---
APPROVED REPORT EKG Measurement Heart [id number] Normal sinus rhythm Possible Left atrial enlargement Left ventricular hypertrophy Inferior infarct, age undetermined Anterolateral infarct, age undetermined Abnormal ECG
[2016-11-28 20:00] VITALS: BP 143/95
[2016-11-29] VITALS: BP 131/86
[2016-11-29] MEDS: Morphine Sulfate 2mg/ml Inj IVP PRN ×5 (02:45→19:33)
[2016-11-29 04:00] VITALS: BP 135/73
[2016-11-29] MEDS: Piperacillin/Tazobactam 3.375 GM in D5W 110 ML IVPB SCH (05:19)
[2016-11-29] MEDS: HydrALAZINE 25mg tab ORAL SCH ×3 (05:21→21:47)
[2016-11-29 06:22] LABS: BASOPHILS % (AUTO) 0.9 % (0.0-2.0); EOSINOPHILS % (AUTO) 3.2 % (0.0-3.0); LYMPHOCYTES % (AUTO) 35.8 % (20.0-45.0); MEAN CORPUSCULAR HEMOGLOBIN 27.4 PG (27.0-31.0); MEAN CORPUSCULAR HGB CONC 31.9 G/DL (32.0-36.0); MEAN CORPUSCULAR VOLUME 86 FL (80-99); MEAN PLATELET VOLUME 6.8 FL (6.5-10.1); MONOCYTES % (AUTO) 9.2 % (1.0-10.0); NEUTROPHILS % (AUTO) 50.9 % (45.0-75.0); PLATELET COUNT 144 K/UL (150-450); RED BLOOD COUNT 4.01 M/UL (4.20-5.40); RED CELL DISTRIBUTION WIDTH 16.2 % (11.6-14.8); WHITE BLOOD COUNT 3.5 K/UL (4.8-10.8)
[2016-11-29 06:56] LABS: ANION GAP 10 (5-15); CALCIUM 9.4 mg/dL (8.6-10.2); CARBON DIOXIDE 28 mEQ/L (20-30); CHLORIDE 107 mEQ/L (98-107); CREATININE 0.8 mg/dL (0.5-0.9); GLOMERULAR FILTRATION RATE > 60 mL/min (>60); HEMOLYSIS 3; POTASSIUM 4.2 mEQ/L (3.4-4.9); SODIUM 145 mEQ/L (135-145)
[2016-11-29 08:00] VITALS: BP 143/79
[2016-11-29] MEDS: Mylanta II UD 30ml ORAL PRN (08:27)
[2016-11-29] MEDS: Sucralfate 1gm tab ORAL SCH ×5 (08:28→21:46)
[2016-11-29] MEDS: Heparin 5000 units/ml inj SUBQ SCH ×2 (08:35→21:00)
[2016-11-29] MEDS: Nitroglycerin Subl 0.4mg tab (Bottle Of 25) SL PRN (09:02)
[2016-11-29 11:02] LABS: TROPONIN I < 0.30 ng/mL (<=0.30)
[2016-11-29 12:00] VITALS: BP 116/59
--- NOTE | 2016-11-29 12:52 | Infectious Diseases Prog Note ---
Assessment/Plan Assessment/Plan A; E. Coli UTI, ESBL AMS COPD Morbid obesity P; change Zosyn to Ertapenem Subjective ROS Limited/Unobtainable: No Constitutional: Reports: no symptoms Respiratory: Reports: no symptoms Cardiovascular: Reports: no symptoms Gastrointestinal/Abdominal: Reports: nausea, other - ? reflux, vomiting Genitourinary: Reports: dysuria Musculoskeletal: Reports: other - in right chest, pain Allergies: Coded Allergies: HALOPERIDOL (Verified Allergy, Unknown, 01/28/09) HALOPERIDOL LACTATE (Unverified Allergy, Unknown, 07/30/16) VANCOMYCIN (Unverified Adverse Reaction, Intermediate, Shortness of Breath , 06/26/13) Objective Vital Signs Last 24 Hour Vital Signs Date Time Temp Pulse Resp B/P Pulse Ox O2 Delivery O2 Flow Rate FiO2 11/29/16 10:09 Nasal Cannula 2.0 11/29/16 10:08 96 Nasal Cannula 3.0 11/29/16 10:06 63 22 Nasal Cannula 3.0 11/29/16 09:02 143/79 11/29/16 08:00 63 16 143/79 96 Room Air 11/29/16 07:23 98.2 11/29/16 05:22 62 135/73 11/29/16 05:21 135/73 11/29/16 04:00 98.2 58 20 135/73 95 Room Air 11/29/16 00:00 98.1 68 20 131/86 97 Nasal Cannula 11/28/16 22:06 60 143/95 11/28/16 22:05 143/95 11/28/16 20:00 97.3 60 20 143/95 93 Room Air 11/28/16 19:05 Nasal Cannula 2.0 28 11/28/16 19:05 78 18 Nasal Cannula 2.0 11/28/16 19:05 96 Nasal Cannula 2.0 28 11/28/16 16:00 98.0 62 18 138/77 97 Nasal Cannula 2.0 11/28/16 13:29 56 137/76 11/28/16 13:28 137/76 Height (Feet): 5 Height (Inches): 7.00 Weight (Pounds): 245 General Appearance: no acute distress, other - obese Respiratory/Chest: lungs clear Cardiovascular: normal rate Abdomen: soft, non tender, other - scar of lower midine surgery Extremities: other - lymphedema Skin: other - stasis dermatitis of legs Microbiology Date/Time Source Procedure Growth Status 11/27/16 14:50 Blood Blood Culture - Preliminary NO GROWTH AFTER 24 HOURS Resulted 11/27/16 14:45 Blood Blood Culture - Preliminary NO GROWTH AFTER 24 HOURS Resulted 11/28/16 03:30 Straight Cath Urine Culture - Preliminary Gram Negative Bacillus 1 Resulted 11/27/16 14:00 Urine,Clean Catch Urine Culture - Final Escherichia Coli - Esbl Complete Laboratory Tests Test 11/29/16 04:45 White Blood Count 3.5 K/UL (4.8-10.8) L Red Blood Count 4.01 M/UL (4.20-5.40) L Hemoglobin 11.0 G/DL (12.0-16.0) L Hematocrit 34.4 % (37.0-47.0) L Mean Corpuscular Volume 86 FL (80-99) Mean Corpuscular Hemoglobin 27.4 PG (27.0-31.0) Mean Corpuscular Hemoglobin Concent 31.9 G/DL (32.0-36.0) L Red Cell Distribution Width 16.2 % (11.6-14.8) H Platelet Count 144 K/UL (150-450) L Mean Platelet Volume 6.8 FL (6.5-10.1) Neutrophils (%) (Auto) 50.9 % (45.0-75.0) Lymphocytes (%) (Auto) 35.8 % (20.0-45.0) Monocytes (%) (Auto) 9.2 % (1.0-10.0) Eosinophils (%) (Auto) 3.2 % (0.0-3.0) H Basophils (%) (Auto) 0.9 % (0.0-2.0) Sodium Level 145 mEQ/L (135-145) Potassium Level 4.2 mEQ/L (3.4-4.9) Chloride Level 107 mEQ/L (98-107) Carbon Dioxide Level 28 mEQ/L (20-30) Anion Gap 10 (5-15) Blood Urea Nitrogen 24 mg/dL (7-23) H Creatinine 0.8 mg/dL (0.5-0.9) Estimat Glomerular Filtration Rate > 60 mL/min (>60) Glucose Level 97 mg/dL (74-106) Calcium Level 9.4 mg/dL (8.6-10.2) Troponin I < 0.30 ng/mL (<=0.30) Current Medications Medications (Trade) Dose Ordered Sig/Shiraz Route PRN Reason Start Time Stop Time Status Last Admin Dose Admin Acetaminophen (Tylenol) 650 mg Q4H PRN ORAL Mild Pain (Pain Scale 1-3) 11/27/16 16:15 12/27/16 16:14 Al Hydroxide/Mg Hydroxide (Mylanta II) 30 ml Q6H PRN ORAL dyspepsia 11/27/16 16:15 12/27/16 16:14 11/29/16 08:27 Albuterol/ Ipratropium (DuoNeb 0.5-3(2.5)mg/3ml) 3 ml Q4H PRN HHN Shortness of Breath 11/27/16 16:15 12/02/16 16:14 Dextrose (Dextrose 50%) STAT PRN IV Hypoglycemia 11/27/16 16:15 12/27/16 16:14 Diltiazem HCl (Cardizem) 60 mg EVERY 8 HOURS ORAL 11/27/16 22:00 12/27/16 21:59 11/29/16 05:22 Ertapenem/Sodium Chloride (INVanz/Sodium Chloride) 55 ml @ 110 mls/hr Q24H IVPB 11/29/16 14:00 12/04/16 13:59 Heparin Sodium (Porcine) (Heparin 5000 units/ml) 5,000 units EVERY 12 HOURS SUBQ 11/27/16 21:00 12/27/16 20:59 11/28/16 22:08 Hydralazine HCl (Apresoline) 25 mg EVERY 8 HOURS ORAL 11/28/16 14:00 12/28/16 13:59 11/29/16 05:21 Magnesium Hydroxide (Mom) 30 ml HSPRN PRN ORAL Constipation 11/27/16 16:15 12/27/16 16:14 Morphine Sulfate (Morphine Sulfate) 2 mg Q4H PRN IVP PAIN 4-10 11/27/16 18:00 12/04/16 17:59 11/29/16 11:05 Nitroglycerin (Ntg) 0.4 mg Q5M X 3 DOSES PRN SL Prn Chest Pain 11/27/16 16:15 12/27/16 16:14 11/29/16 09:02 Ondansetron HCl 4 mg 4 mg Q4HR PRN IVP Nausea & Vomiting 11/28/16 17:00 12/28/16 16:59 11/29/16 11:05 Polyethylene Glycol (Miralax) 17 gm HSPRN PRN ORAL Constipation 11/27/16 16:15 12/27/16 16:14 Ranitidine HCl (Zantac) 150 mg TWICE A DAY ORAL 11/27/16 18:00 12/27/16 17:59 11/28/16 09:55 Sucralfate (Carafate) 1 gm FOUR TIMES A DAY ORAL 11/27/16 18:00 12/27/16 17:59 11/28/16 22:04 Temazepam (Restoril) 15 mg HSPRN PRN ORAL Insomnia 11/27/16 16:15 12/04/16 16:14 PREETHI HOLLOWAY Nov 29, 2016 12:52
[2016-11-29] MEDS: Ertapenem 1 GM in NS 55 ML IVPB SCH (13:40)
[2016-11-29 14:15] VITALS: BP 131/90
--- NOTE | 2016-11-29 15:11 | Cardiology Report ---
APPROVED REPORT EKG Measurement Heart [id number] Sinus bradycardia Anterior infarct, age undetermined Abnormal ECG
--- NOTE | 2016-11-29 16:00 | Pulmonology Progress Note ---
Assessment/Plan Problems: (1) Sepsis (2) UTI (urinary tract infection) (3) Lymphedema (4) Abdominal pain (5) Acute encephalopathy (6) Onychomycosis Assessment/Plan IV antibiotics check cultures GI evaluation pt/ot check labs in am Subjective ROS Limited/Unobtainable: No Constitutional: Reports: no symptoms HEENT: Repors: no symptoms Respiratory: Reports: no symptoms Cardiovascular: Reports: no symptoms Allergies: Coded Allergies: HALOPERIDOL (Verified Allergy, Unknown, 01/28/09) HALOPERIDOL LACTATE (Unverified Allergy, Unknown, 07/30/16) VANCOMYCIN (Unverified Adverse Reaction, Intermediate, Shortness of Breath , 06/26/13) Objective Last 24 Hour Vital Signs Date Time Temp Pulse Resp B/P Pulse Ox O2 Delivery O2 Flow Rate FiO2 11/29/16 14:15 131/90 11/29/16 14:15 62 131/90 11/29/16 14:15 131/90 11/29/16 12:00 97.9 60 16 116/59 97 Nasal Cannula 3.0 11/29/16 10:09 Nasal Cannula 2.0 11/29/16 10:08 96 Nasal Cannula 3.0 11/29/16 10:06 63 22 Nasal Cannula 3.0 11/29/16 09:02 143/79 11/29/16 08:00 63 16 143/79 96 Room Air 11/29/16 07:23 98.2 11/29/16 05:22 62 135/73 11/29/16 05:21 135/73 11/29/16 04:00 98.2 58 20 135/73 95 Room Air 11/29/16 00:00 98.1 68 20 131/86 97 Nasal Cannula 11/28/16 22:06 60 143/95 11/28/16 22:05 143/95 11/28/16 20:00 97.3 60 20 143/95 93 Room Air 11/28/16 19:05 Nasal Cannula 2.0 28 11/28/16 19:05 78 18 Nasal Cannula 2.0 11/28/16 19:05 96 Nasal Cannula 2.0 28 11/28/16 16:00 98.0 62 18 138/77 97 Nasal Cannula 2.0 Intake and Output 11/28/16 11/29/16 19:00 07:00 Intake Total 540.0 ml 237.5 ml Balance 540.0 ml 237.5 ml Intake Oral 320 ml 100 ml IV Total 220.0 ml 137.5 ml # Voids 2 2 General Appearance: WD/WN, no acute distress HEENT: atraumatic Respiratory/Chest: chest wall non-tender, lungs clear Breasts: no masses Cardiovascular: normal peripheral pulses Abdomen: normal bowel sounds, soft, non tender Genitourinary: normal external genitalia Extremities: no clubbing Skin: no lesions, no ulcers Lymphatic: no groin adenopathy Microbiology Date/Time Source Procedure Growth Status 11/27/16 14:50 Blood Blood Culture - Preliminary NO GROWTH AFTER 24 HOURS Resulted 11/27/16 14:45 Blood Blood Culture - Preliminary NO GROWTH AFTER 24 HOURS Resulted 11/28/16 03:30 Straight Cath Urine Culture - Preliminary Gram Negative Bacillus 1 Resulted 11/27/16 14:00 Urine,Clean Catch Urine Culture - Final Escherichia Coli - Esbl Complete Laboratory Tests 11/29/16 04:45: White Blood Count 3.5L, Red Blood Count 4.01L, Hemoglobin 11.0L, Hematocrit 34.4L, Mean Corpuscular Volume 86, Mean Corpuscular Hemoglobin 27.4, Mean Corpuscular Hemoglobin Concent 31.9L, Red Cell Distribution Width 16.2H, Platelet Count 144L, Mean Platelet Volume 6.8, Neutrophils (%) (Auto) 50.9, Lymphocytes (%) (Auto) 35.8, Monocytes (%) (Auto) 9.2, Eosinophils (%) (Auto) 3.2H, Basophils (%) (Auto) 0.9, Sodium Level 145, Potassium Level 4.2, Chloride Level 107, Carbon Dioxide Level 28, Anion Gap 10, Blood Urea Nitrogen 24H, Creatinine 0.8, Estimat Glomerular Filtration Rate > 60, Glucose Level 97, Calcium Level 9.4, Troponin I < 0.30 Current Medications Medications (Trade) Dose Ordered Sig/Shiraz Route PRN Reason Start Time Stop Time Status Last Admin Dose Admin Acetaminophen (Tylenol) 650 mg Q4H PRN ORAL Mild Pain (Pain Scale 1-3) 11/27/16 16:15 12/27/16 16:14 Al Hydroxide/Mg Hydroxide (Mylanta II) 30 ml Q6H PRN ORAL dyspepsia 11/27/16 16:15 12/27/16 16:14 11/29/16 08:27 Albuterol/ Ipratropium (DuoNeb 0.5-3(2.5)mg/3ml) 3 ml Q4H PRN HHN Shortness of Breath 11/27/16 16:15 12/02/16 16:14 Dextrose (Dextrose 50%) STAT PRN IV Hypoglycemia 11/27/16 16:15 12/27/16 16:14 Diltiazem HCl (Cardizem) 60 mg EVERY 8 HOURS ORAL 11/27/16 22:00 12/27/16 21:59 11/29/16 14:15 Ertapenem/Sodium Chloride (INVanz/Sodium Chloride) 55 ml @ 110 mls/hr Q24H IVPB 11/29/16 14:00 12/04/16 13:59 11/29/16 13:40 Heparin Sodium (Porcine) (Heparin 5000 units/ml) 5,000 units EVERY 12 HOURS SUBQ 11/27/16 21:00 12/27/16 20:59 11/28/16 22:08 Hydralazine HCl (Apresoline) 25 mg EVERY 8 HOURS ORAL 11/28/16 14:00 12/28/16 13:59 11/29/16 14:15 Magnesium Hydroxide (Mom) 30 ml HSPRN PRN ORAL Constipation 11/27/16 16:15 12/27/16 16:14 Mirtazapine (Remeron) 15 mg BEDTIME ORAL 11/29/16 21:00 12/29/16 20:59 Morphine Sulfate (Morphine Sulfate) 2 mg Q4H PRN IVP PAIN 4-10 11/27/16 18:00 12/04/16 17:59 11/29/16 15:21 Nitroglycerin (Ntg) 0.4 mg Q5M X 3 DOSES PRN SL Prn Chest Pain 11/27/16 16:15 12/27/16 16:14 11/29/16 09:02 Ondansetron HCl 4 mg 4 mg Q4HR PRN IVP Nausea & Vomiting 11/28/16 17:00 12/28/16 16:59 11/29/16 15:22 Polyethylene Glycol (Miralax) 17 gm HSPRN PRN ORAL Constipation 11/27/16 16:15 12/27/16 16:14 Ranitidine HCl (Zantac) 150 mg TWICE A DAY ORAL 11/27/16 18:00 12/27/16 17:59 11/28/16 09:55 Sucralfate (Carafate) 1 gm FOUR TIMES A DAY ORAL 11/27/16 18:00 12/27/16 17:59 11/29/16 13:40 Temazepam (Restoril) 15 mg HSPRN PRN ORAL Insomnia 11/27/16 16:15 12/04/16 16:14 RIC GONZALES Nov 29, 2016 16:00
[2016-11-29 20:00] VITALS: BP 140/75
--- NOTE | 2016-11-29 23:00 | Consultation ---
DATE OF CONSULTATION: 11/29/2016 HISTORY OF PRESENT ILLNESS: The patient is a 66-year-old female with a history of COPD, dementia, lymphedema, hypertension, hypothyroidism, CHF, and anxiety disorder, who has been admitted to the hospital due to altered mental status. During the evaluation today, she was alert, sitting in her bed, holding the basin. She stated that she is feeling horrible and anxious. She was agitated. She stated that she cannot any liquids down. She also stated she was not able to sleep last night. The patient has been taking the citalopram for a while. The medication was not started recently. It could cause nausea, however, the patient was started for a while. PAST PSYCHIATRIC HISTORY: The patient has a history of depression and anxiety, has been treated with temazepam and Lexapro. PAST MEDICAL HISTORY: Includes lymphedema, hypertension, opiate dependence, and abdominal pain. ALLERGIES: Includes Haldol and vancomycin. MENTAL STATUS EXAMINATION: The patient is alert and oriented to time, self, place, and situation she is in. Mood is anxious and agitated. Affect is constricted. Congruent with mood. Thought process is linear. Thought content, no suicidal or homicidal ideations. Cognition, memory is impaired. ASSESSMENT: Henderson I Major depressive disorder, anxiety disorder, opiate pain medication dependence. Henderson II Deferred. Henderson III As above. Henderson IV Low. Henderson V Global assessment of functioning is 50. PLAN: 1. The patient's Lexapro was discontinued. 2. We will start the patient on mirtazapine 15 mg, which also may help the nausea and also help the patient sleep better. 3. We will continue to follow and readjust the medications. Harris Ballesteros M.D. DR: BRYNN JOB#: [id number] CC:
[2016-11-30] VITALS (7 sets, daily range): BP systolic 140–172; BP diastolic 9–89
[2016-11-30] MEDS: Morphine Sulfate 2mg/ml Inj IVP PRN ×5 (01:22→20:45)
[2016-11-30] MEDS: HydrALAZINE 25mg tab ORAL SCH ×3 (06:02→20:43)
[2016-11-30] MEDS: Heparin 5000 units/ml inj SUBQ SCH ×2 (09:00→20:45)
[2016-11-30] MEDS: Sucralfate 1gm tab ORAL SCH ×4 (09:50→20:44)
--- NOTE | 2016-11-30 10:38 | Wound Nurse Progress Note ---
Wound RN Progress Note Wound Consult Chronic lymphedema with lichenified skin on both legs. No recommendation for wound care wound care. follow MD's order. SASKIA MONTANO RN Nov 30, 2016 10:38
--- NOTE | 2016-11-30 13:26 | Infectious Diseases Prog Note ---
Assessment/Plan Assessment/Plan A; E. Coli UTI, ESBL AMS COPD Morbid obesity P; continue Ertapenem Subjective ROS Limited/Unobtainable: No Constitutional: Reports: no symptoms Respiratory: Reports: no symptoms Cardiovascular: Reports: no symptoms Genitourinary: Reports: dysuria Allergies: Coded Allergies: HALOPERIDOL (Verified Allergy, Unknown, 01/28/09) HALOPERIDOL LACTATE (Unverified Allergy, Unknown, 07/30/16) VANCOMYCIN (Unverified Adverse Reaction, Intermediate, Shortness of Breath , 06/26/13) Objective Vital Signs Last 24 Hour Vital Signs Date Time Temp Pulse Resp B/P Pulse Ox O2 Delivery O2 Flow Rate FiO2 11/30/16 12:00 97.4 66 20 154/69 93 Room Air 11/30/16 08:05 75 18 Nasal Cannula 3.0 32 11/30/16 08:05 97 Nasal Cannula 3.0 11/30/16 08:05 Nasal Cannula 3.0 32 11/30/16 08:00 97.5 16 157/81 94 Room Air 11/30/16 06:02 144/72 11/30/16 06:02 66 144/72 11/30/16 04:00 97.2 66 20 144/72 93 Room Air 11/30/16 00:00 97.8 63 20 159/82 97 Nasal Cannula 2.0 11/29/16 23:16 97 Nasal Cannula 3.0 11/29/16 23:16 Nasal Cannula 3.0 32 11/29/16 23:16 73 18 Nasal Cannula 3.0 32 11/29/16 21:47 131/90 11/29/16 21:46 62 131/90 11/29/16 20:00 97.7 57 20 140/75 96 Nasal Cannula 11/29/16 14:15 131/90 11/29/16 14:15 62 131/90 11/29/16 14:15 131/90 Height (Feet): 5 Height (Inches): 7.00 Weight (Pounds): 245 General Appearance: no acute distress, other - obese Respiratory/Chest: lungs clear Cardiovascular: normal rate Abdomen: soft, non tender Extremities: other - edema of legs Skin: other - stasis dermatitis Neurologic/Psychiatric: alert, responsive Microbiology Date/Time Source Procedure Growth Status 11/27/16 14:50 Blood Blood Culture - Preliminary NO GROWTH AFTER 48 HOURS Resulted 11/27/16 14:45 Blood Blood Culture - Preliminary NO GROWTH AFTER 48 HOURS Resulted 11/28/16 03:30 Straight Cath Urine Culture - Final Escherichia Coli - Esbl Complete 11/27/16 14:00 Urine,Clean Catch Urine Culture - Final Escherichia Coli - Esbl Complete Current Medications Medications (Trade) Dose Ordered Sig/Shiraz Route PRN Reason Start Time Stop Time Status Last Admin Dose Admin Acetaminophen (Tylenol) 650 mg Q4H PRN ORAL Mild Pain (Pain Scale 1-3) 11/27/16 16:15 12/27/16 16:14 Al Hydroxide/Mg Hydroxide (Mylanta II) 30 ml Q6H PRN ORAL dyspepsia 11/27/16 16:15 12/27/16 16:14 11/29/16 08:27 Albuterol/ Ipratropium (DuoNeb 0.5-3(2.5)mg/3ml) 3 ml Q4H PRN HHN Shortness of Breath 11/27/16 16:15 12/02/16 16:14 Dextrose (Dextrose 50%) STAT PRN IV Hypoglycemia 11/27/16 16:15 12/27/16 16:14 Diltiazem HCl (Cardizem) 60 mg EVERY 8 HOURS ORAL 11/27/16 22:00 12/27/16 21:59 11/30/16 06:02 Ertapenem/Sodium Chloride (INVanz/Sodium Chloride) 55 ml @ 110 mls/hr Q24H IVPB 11/29/16 14:00 12/04/16 13:59 11/29/16 13:40 Heparin Sodium (Porcine) (Heparin 5000 units/ml) 5,000 units EVERY 12 HOURS SUBQ 11/27/16 21:00 12/27/16 20:59 11/28/16 22:08 Hydralazine HCl (Apresoline) 25 mg EVERY 8 HOURS ORAL 11/28/16 14:00 12/28/16 13:59 11/30/16 06:02 Magnesium Hydroxide (Mom) 30 ml HSPRN PRN ORAL Constipation 11/27/16 16:15 12/27/16 16:14 Mirtazapine (Remeron) 15 mg BEDTIME ORAL 11/29/16 21:00 12/29/16 20:59 11/29/16 21:46 Morphine Sulfate (Morphine Sulfate) 2 mg Q4H PRN IVP PAIN 4-10 11/27/16 18:00 12/04/16 17:59 11/30/16 12:34 Nitroglycerin (Ntg) 0.4 mg Q5M X 3 DOSES PRN SL Prn Chest Pain 11/27/16 16:15 12/27/16 16:14 11/29/16 09:02 Ondansetron HCl 4 mg 4 mg Q4HR PRN IVP Nausea & Vomiting 11/28/16 17:00 12/28/16 16:59 11/30/16 12:33 Polyethylene Glycol (Miralax) 17 gm HSPRN PRN ORAL Constipation 11/27/16 16:15 12/27/16 16:14 Ranitidine HCl (Zantac) 150 mg TWICE A DAY ORAL 11/27/16 18:00 12/27/16 17:59 11/30/16 09:50 Sucralfate (Carafate) 1 gm FOUR TIMES A DAY ORAL 11/27/16 18:00 12/27/16 17:59 11/30/16 12:35 Temazepam (Restoril) 15 mg HSPRN PRN ORAL Insomnia 11/27/16 16:15 12/04/16 16:14 PREETHI HOLLOWAY Nov 30, 2016 13:26
[2016-11-30] MEDS ORDERED: NS 275ml ONE (14:13)
[2016-11-30] MEDS: Ertapenem 1 GM in NS 55 ML IVPB SCH (14:25)
--- NOTE | 2016-11-30 14:41 | Pulmonology Progress Note ---
Assessment/Plan Problems: (1) Sepsis (2) UTI (urinary tract infection) (3) Lymphedema (4) Abdominal pain (5) Acute encephalopathy (6) Onychomycosis Assessment/Plan IV antibiotics check cultures GI evaluation pt/ot check labs in am dc planning home to finish abx at home Subjective ROS Limited/Unobtainable: No Constitutional: Reports: no symptoms HEENT: Repors: no symptoms Respiratory: Reports: no symptoms Allergies: Coded Allergies: HALOPERIDOL (Verified Allergy, Unknown, 01/28/09) HALOPERIDOL LACTATE (Unverified Allergy, Unknown, 07/30/16) VANCOMYCIN (Unverified Adverse Reaction, Intermediate, Shortness of Breath , 06/26/13) Objective Last 24 Hour Vital Signs Date Time Temp Pulse Resp B/P Pulse Ox O2 Delivery O2 Flow Rate FiO2 11/30/16 14:24 77/141 11/30/16 14:24 61 141/77 11/30/16 12:00 97.4 66 20 154/69 93 Room Air 11/30/16 08:05 75 18 Nasal Cannula 3.0 32 11/30/16 08:05 97 Nasal Cannula 3.0 11/30/16 08:05 Nasal Cannula 3.0 32 11/30/16 08:00 97.5 16 157/81 94 Room Air 11/30/16 06:02 144/72 11/30/16 06:02 66 144/72 11/30/16 04:00 97.2 66 20 144/72 93 Room Air 11/30/16 00:00 97.8 63 20 159/82 97 Nasal Cannula 2.0 11/29/16 23:16 97 Nasal Cannula 3.0 11/29/16 23:16 Nasal Cannula 3.0 32 11/29/16 23:16 73 18 Nasal Cannula 3.0 32 11/29/16 21:47 131/90 11/29/16 21:46 62 131/90 11/29/16 20:00 97.7 57 20 140/75 96 Nasal Cannula Intake and Output 11/29/16 11/30/16 18:59 06:59 Intake Total 355 ml 250 ml Balance 355 ml 250 ml Intake Oral 300 ml 250 ml IV Total 55 ml # Voids 2 General Appearance: WD/WN HEENT: normocephalic Respiratory/Chest: chest wall non-tender, lungs clear Breasts: no masses Cardiovascular: normal peripheral pulses Abdomen: normal bowel sounds, soft, non tender Genitourinary: normal external genitalia Extremities: no cyanosis Skin: no rash Microbiology Date/Time Source Procedure Growth Status 11/27/16 14:50 Blood Blood Culture - Preliminary NO GROWTH AFTER 48 HOURS Resulted 11/27/16 14:45 Blood Blood Culture - Preliminary NO GROWTH AFTER 48 HOURS Resulted 11/28/16 03:30 Straight Cath Urine Culture - Final Escherichia Coli - Esbl Complete Current Medications Medications (Trade) Dose Ordered Sig/Shiraz Route PRN Reason Start Time Stop Time Status Last Admin Dose Admin Acetaminophen (Tylenol) 650 mg Q4H PRN ORAL Mild Pain (Pain Scale 1-3) 11/27/16 16:15 12/27/16 16:14 Al Hydroxide/Mg Hydroxide (Mylanta II) 30 ml Q6H PRN ORAL dyspepsia 11/27/16 16:15 12/27/16 16:14 11/29/16 08:27 Albuterol/ Ipratropium (DuoNeb 0.5-3(2.5)mg/3ml) 3 ml Q4H PRN HHN Shortness of Breath 11/27/16 16:15 12/02/16 16:14 Dextrose (Dextrose 50%) STAT PRN IV Hypoglycemia 11/27/16 16:15 12/27/16 16:14 Diltiazem HCl (Cardizem) 60 mg EVERY 8 HOURS ORAL 11/27/16 22:00 12/27/16 21:59 11/30/16 14:24 Ertapenem/Sodium Chloride (INVanz/Sodium Chloride) 55 ml @ 110 mls/hr Q24H IVPB 11/29/16 14:00 12/04/16 13:59 11/30/16 14:25 Heparin Sodium (Porcine) (Heparin 5000 units/ml) 5,000 units EVERY 12 HOURS SUBQ 11/27/16 21:00 12/27/16 20:59 11/28/16 22:08 Hydralazine HCl (Apresoline) 25 mg EVERY 8 HOURS ORAL 11/28/16 14:00 12/28/16 13:59 11/30/16 14:24 Magnesium Hydroxide (Mom) 30 ml HSPRN PRN ORAL Constipation 11/27/16 16:15 12/27/16 16:14 Mirtazapine (Remeron) 15 mg BEDTIME ORAL 11/29/16 21:00 12/29/16 20:59 11/29/16 21:46 Morphine Sulfate (Morphine Sulfate) 2 mg Q4H PRN IVP PAIN 4-10 11/27/16 18:00 12/04/16 17:59 11/30/16 12:34 Nitroglycerin (Ntg) 0.4 mg Q5M X 3 DOSES PRN SL Prn Chest Pain 11/27/16 16:15 12/27/16 16:14 11/29/16 09:02 Ondansetron HCl 4 mg 4 mg Q4HR PRN IVP Nausea & Vomiting 11/28/16 17:00 12/28/16 16:59 11/30/16 12:33 Polyethylene Glycol (Miralax) 17 gm HSPRN PRN ORAL Constipation 11/27/16 16:15 12/27/16 16:14 Ranitidine HCl (Zantac) 150 mg TWICE A DAY ORAL 11/27/16 18:00 12/27/16 17:59 11/30/16 09:50 Sucralfate (Carafate) 1 gm FOUR TIMES A DAY ORAL 11/27/16 18:00 12/27/16 17:59 11/30/16 12:35 Temazepam (Restoril) 15 mg HSPRN PRN ORAL Insomnia 11/27/16 16:15 12/04/16 16:14 RIC GONZALES Nov 30, 2016 14:41
[2016-11-30] MEDS: Mylanta II UD 30ml ORAL PRN (16:31)
[2016-11-30] MEDS: Nitroglycerin Subl 0.4mg tab (Bottle Of 25) SL PRN (16:31)
--- NOTE | 2016-11-30 16:45 | Progress Note ---
SUBJECTIVE: The patient was found resting in bed. No behavior issues. No acute distress. Slept better last night. Did not complain of nausea today. Less anxious. MENTAL STATUS EXAMINATION: The patient is alert and oriented times self, place, time, and situation she is in. Mood is less anxious. Affect is constricted. Congruent with mood. Thought process, linear. Thought content, there is no suicidal or homicidal ideation. Cognition is intact. ASSESSMENT: 1. The patient is slightly groggy from night before. 2. Anxiety disorder. 3. Insomnia. PLAN: 1. We will continue the Remeron. 2. We will continue to follow and readjust the medication. Harris Ballesteros M.D. DR: ARLETTE JOB#: [id number] CC:
[2016-12-01] MEDS: Morphine Sulfate 2mg/ml Inj IVP PRN ×5 (01:06→17:22)
[2016-12-01 04:00] VITALS: BP 146/80
[2016-12-01] MEDS: HydrALAZINE 25mg tab ORAL SCH ×2 (05:27→14:00)
[2016-12-01] MEDS: Mylanta II UD 30ml ORAL PRN (06:28)
[2016-12-01 08:00] VITALS: BP 146/75
[2016-12-01] MEDS: Sucralfate 1gm tab ORAL SCH ×3 (08:36→17:22)
[2016-12-01] MEDS: Heparin 5000 units/ml inj SUBQ SCH (08:36)
[2016-12-01] MEDS ORDERED: Fleet's Enema 133ml RECTAL ONE (10:30)
[2016-12-01] MEDS ORDERED: Bisacodyl EC 5mg tab ORAL ONE ×2 (11:00→12:00)
[2016-12-01 12:00] VITALS: BP 148/71
--- NOTE | 2016-12-01 12:08 | GI Initial Consult Note ---
History of Present Illness General Date patient seen: Dec 01, 2016 Time patient seen: 11:00 Reason for Hospitalization: Altered Mental Status Referring physician: RIC ALEXANDER Reason for Consultation: EMESIS Present Illness HPI 66-year-old female history of COPD, dementia, chronic lymphedema presents with altered mental status. Unknown the patient's baseline however patient is currently AOx3. EMS states that patient has been more altered than her normal period patient is a poor historian however she is preoccupied with certain subjects during history taking. Patient currently denying any pain. Patient currently denying any fever chills cough shortness of breath chest pain or abdominal pain. Patient does complain of intermittent vomiting unclear duration GI consult. HPI as noted. GI consulted for emesis/anemia. ROS limited, AMS. Pt seen on floor, awake A&O NAD with no active s/sx of N/V/D. Patient c/o of constipation. RN reports of emesis this morning. She presents today with mild anemia and constipation. The patient has unknown history of endoscopic procedures and refuses to have any done. Home Meds Reported Medications Acetaminophen With Codeine (T#3) (TYLENOL #3 TAB*) Y Tab, 1 TAB ORAL Q6H Y for For Pain, TAB 08/05/16 Magnesium Hydroxide* (MILK OF MAGNESIA*) 400 Mg/5 Ml Oral.susp, 30 ML ORAL DAILY , ML 08/05/16 Docusate Sodium* (COLACE*) 100 Mg Capsule, 100 MG ORAL DAILY, CAP 08/05/16 Escitalopram Oxalate* (LEXAPRO*) 10 Mg Tablet, 10 MG ORAL DAILY, TAB 07/31/16 Hydralazine Hcl* (HYDRALAZINE HCL*) 10 Mg Tablet, 10 MG ORAL EVERY 6 HOURS, TAB 07/31/16 Sucralfate* (CARAFATE*) 1 Gm Tablet, 1 GM ORAL FOUR TIMES A DAY, TAB 07/31/16 Diltiazem Hcl* (CARDIZEM*) 60 Mg Tablet, 60 MG ORAL EVERY 8 HOURS, TAB 07/31/16 Med list reviewed/reconciled: Yes Allergies: Coded Allergies: HALOPERIDOL (Verified Allergy, Unknown, 01/28/09) HALOPERIDOL LACTATE (Unverified Allergy, Unknown, 07/30/16) VANCOMYCIN (Unverified Adverse Reaction, Intermediate, Shortness of Breath , 06/26/13) Patient History Limited by: medical condition History Provided By: Medical Record [facility] [place] Narrative Past Medical History: see triage record Past Surgical History: unable to obtain Pertinent Family History: unable to obtain Now: No Nursing Documentation-[facility] [place] Hx Cardiac Problems: Yes - HEART FAILURE UNSPECIFIED Hx Hypertension: Yes Hx Asthma: No Hx COPD: Yes Hx Diabetes: No Hx Cancer: No Hx Gastrointestinal Problems: Yes - GERD Hx Dialysis: No History Of Psychiatric Problem: Yes - DEPRESSIVE Hx Cerebrovascular Accident: No Hx Seizures: No Review of Systems All Other Systems: negative except mentioned in HPI Physical Exam Vital Signs Date Time Temp Pulse Resp B/P (MAP) Pulse Ox O2 Delivery O2 Flow Rate FiO2 11/27/16 12:30 98.1 73 18 145/105 99 Nasal Cannula 2.0 11/27/16 20:15 28 Sp02 EP Interpretation: reviewed General Appearance: well appearing, no apparent distress, alert Head: normocephalic EENT: PERRL/EOMI, normal ENT inspection Neck: supple Respiratory: normal breath sounds, no respiratory distress Cardiovascular: normal rate Gastrointestinal: normal inspection, non tender, soft, normal bowel sounds Rectal: deferred Genitourinary: no CVA tenderness Musculoskeletal: back normal Neurologic: alert, oriented x3, responsive Psychiatric: normal inspection Skin: no rash Lymphatic: normal inspection, no adenopathy Current Medications Current Medications Medications (Trade) Dose Ordered Sig/Shiraz Route PRN Reason Start Time Stop Time Status Last Admin Dose Admin Acetaminophen (Tylenol) 650 mg Q4H PRN ORAL Mild Pain (Pain Scale 1-3) 11/27/16 16:15 12/27/16 16:14 Al Hydroxide/Mg Hydroxide (Mylanta II) 30 ml Q6H PRN ORAL dyspepsia 11/27/16 16:15 12/27/16 16:14 12/01/16 06:28 Albuterol/ Ipratropium (DuoNeb 0.5-3(2.5)mg/3ml) 3 ml Q4H PRN HHN Shortness of Breath 11/27/16 16:15 12/02/16 16:14 Dextrose (Dextrose 50%) STAT PRN IV Hypoglycemia 11/27/16 16:15 12/27/16 16:14 Diltiazem HCl (Cardizem) 60 mg EVERY 8 HOURS ORAL 11/27/16 22:00 12/27/16 21:59 12/01/16 05:27 Docusate Sodium (Colace) 100 mg THREE TIMES A DAY ORAL 12/01/16 13:00 12/31/16 12:59 Ertapenem 1 gm/ Sodium Chloride 55 ml @ 110 mls/hr Q24H IVPB 11/29/16 14:00 12/04/16 13:59 11/30/16 14:25 Escitalopram Oxalate (Lexapro) 10 mg DAILY ORAL 12/01/16 09:00 12/31/16 08:59 12/01/16 08:36 Esomeprazole Sodium (Nexium I.v.) 40 mg DAILY IVP 12/02/16 09:00 01/01/17 08:59 Heparin Sodium (Porcine) (Heparin 5000 units/ml) 5,000 units EVERY 12 HOURS SUBQ 11/27/16 21:00 12/27/16 20:59 11/28/16 22:08 Hydralazine HCl (Apresoline) 25 mg EVERY 8 HOURS ORAL 11/28/16 14:00 12/28/16 13:59 12/01/16 05:27 Magnesium Hydroxide (Mom) 30 ml HSPRN PRN ORAL Constipation 11/27/16 16:15 12/27/16 16:14 Mirtazapine (Remeron) 15 mg BEDTIME ORAL 11/29/16 21:00 12/29/16 20:59 11/30/16 20:44 Morphine Sulfate (Morphine Sulfate) 2 mg Q4H PRN IVP PAIN 4-10 11/27/16 18:00 12/04/16 17:59 12/01/16 09:08 Nitroglycerin (Ntg) 0.4 mg Q5M X 3 DOSES PRN SL Prn Chest Pain 11/27/16 16:15 12/27/16 16:14 11/29/16 09:02 Ondansetron HCl (Zofran) 4 mg Q4HR PRN IVP Nausea & Vomiting 11/28/16 17:00 12/28/16 16:59 12/01/16 09:08 Polyethylene Glycol (Miralax) 17 gm BEDTIME ORAL 12/01/16 21:00 12/31/16 20:59 Polyethylene Glycol (Miralax) 17 gm HSPRN PRN ORAL Constipation 8/19/17 16:15 12/27/16 16:14 Ranitidine HCl (Zantac) 150 mg BEDTIME ORAL 12/01/16 21:00 12/31/16 20:59 Sucralfate (Carafate) 1 gm FOUR TIMES A DAY ORAL 11/27/16 18:00 12/27/16 17:59 12/01/16 08:36 Temazepam (Restoril) 15 mg HSPRN PRN ORAL Insomnia 11/27/16 16:15 12/04/16 16:14 GI: Plan Problems: (1) Emesis (2) Anemia (3) Abdominal pain (4) Opiate dependence (5) Constipation (6) Altered mental status (7) GERD (gastroesophageal reflux disease) Plan anemia work up OB stool r/o GI bleed ppi daily + H2B qhs >> dc carafate bowel regime >> miralax + colace ATC, dulcolax prn zofran prn decrease narcotic use fu labs outpatient GI procedures Discussed with Dr. Victoria. Thank you for referring this patient, we will follow. Daniela Winston N.P. Dec 01, 2016 12:08
[2016-12-01] MEDS: Docusate 100mg cap ORAL SCH ×2 (12:47→17:22)
[2016-12-01] MEDS ORDERED: INVANZ1 G1 IM (13:50)
--- NOTE | 2016-12-01 13:52 | Pulmonology Progress Note ---
Assessment/Plan Problems: (1) Sepsis (2) UTI (urinary tract infection) (3) Lymphedema (4) Abdominal pain (5) Acute encephalopathy (6) Onychomycosis Assessment/Plan IV antibiotics check cultures GI evaluation pt/ot check labs in am dc planning home [facility] Invanz IV Subjective ROS Limited/Unobtainable: No Constitutional: Reports: no symptoms HEENT: Repors: no symptoms Respiratory: Reports: no symptoms Allergies: Coded Allergies: HALOPERIDOL (Verified Allergy, Unknown, 01/28/09) HALOPERIDOL LACTATE (Unverified Allergy, Unknown, 07/30/16) VANCOMYCIN (Unverified Adverse Reaction, Intermediate, Shortness of Breath , 06/26/13) Objective Last 24 Hour Vital Signs Date Time Temp Pulse Resp B/P (MAP) Pulse Ox O2 Delivery O2 Flow Rate FiO2 12/01/16 12:00 97.9 66 20 148/71 99 Room Air 12/01/16 08:00 97.7 66 20 146/75 94 Room Air 12/01/16 07:45 95 Nasal Cannula 3.0 12/01/16 07:45 Nasal Cannula 3.0 32 12/01/16 07:45 71 18 Nasal Cannula 3.0 32 12/01/16 05:27 146/80 12/01/16 05:27 65 146/80 12/01/16 04:00 97.2 65 19 146/80 96 Room Air 11/30/16 23:22 97.2 61 20 140/69 95 Room Air 11/30/16 20:44 70 172/89 11/30/16 20:43 172/89 11/30/16 20:00 97.5 60 20 150/82 95 Room Air 11/30/16 19:00 Nasal Cannula 3.0 32 11/30/16 19:00 77 18 Nasal Cannula 3.0 32 11/30/16 19:00 96 Nasal Cannula 3.0 11/30/16 16:00 98.2 70 20 172/89 97 Room Air 11/30/16 14:24 77/141 11/30/16 14:24 61 141/77 General Appearance: WD/WN HEENT: normocephalic, atraumatic Respiratory/Chest: chest wall non-tender, lungs clear Breasts: no masses Cardiovascular: normal peripheral pulses, normal rate Abdomen: normal bowel sounds, soft, non tender Genitourinary: normal external genitalia Extremities: no cyanosis Skin: no rash, no lesions Neurologic/Psychiatric: billet heater II-XII grossly normal, no motor/sensory deficits Lymphatic: no neck adenopathy Current Medications Medications (Trade) Dose Ordered Sig/Shiraz Route PRN Reason Start Time Stop Time Status Last Admin Dose Admin Acetaminophen (Tylenol) 650 mg Q4H PRN ORAL Mild Pain (Pain Scale 1-3) 11/27/16 16:15 12/27/16 16:14 Al Hydroxide/Mg Hydroxide (Mylanta II) 30 ml Q6H PRN ORAL dyspepsia 11/27/16 16:15 12/27/16 16:14 12/01/16 06:28 Albuterol/ Ipratropium (DuoNeb 0.5-3(2.5)mg/3ml) 3 ml Q4H PRN HHN Shortness of Breath 11/27/16 16:15 12/02/16 16:14 Dextrose (Dextrose 50%) STAT PRN IV Hypoglycemia 11/27/16 16:15 12/27/16 16:14 Diltiazem HCl (Cardizem) 60 mg EVERY 8 HOURS ORAL 11/27/16 22:00 12/27/16 21:59 12/01/16 05:27 Docusate Sodium (Colace) 100 mg THREE TIMES A DAY ORAL 12/01/16 13:00 12/31/16 12:59 12/01/16 12:47 Ertapenem 1 gm/ Sodium Chloride 55 ml @ 110 mls/hr Q24H IVPB 11/29/16 14:00 12/04/16 13:59 11/30/16 14:25 Escitalopram Oxalate (Lexapro) 10 mg DAILY ORAL 12/01/16 09:00 12/31/16 08:59 12/01/16 08:36 Esomeprazole Sodium (Nexium I.v.) 40 mg DAILY IVP 12/02/16 09:00 01/01/17 08:59 Heparin Sodium (Porcine) (Heparin 5000 units/ml) 5,000 units EVERY 12 HOURS SUBQ 11/27/16 21:00 12/27/16 20:59 11/28/16 22:08 Hydralazine HCl (Apresoline) 25 mg EVERY 8 HOURS ORAL 11/28/16 14:00 12/28/16 13:59 12/01/16 05:27 Magnesium Hydroxide (Mom) 30 ml HSPRN PRN ORAL Constipation 11/27/16 16:15 12/27/16 16:14 Mirtazapine (Remeron) 15 mg BEDTIME ORAL 11/29/16 21:00 12/29/16 20:59 11/30/16 20:44 Morphine Sulfate (Morphine Sulfate) 2 mg Q4H PRN IVP PAIN 4-10 11/27/16 18:00 12/04/16 17:59 12/01/16 13:10 Nitroglycerin (Ntg) 0.4 mg Q5M X 3 DOSES PRN SL Prn Chest Pain 11/27/16 16:15 12/27/16 16:14 11/29/16 09:02 Ondansetron HCl (Zofran) 4 mg Q4HR PRN IVP Nausea & Vomiting 11/28/16 17:00 12/28/16 16:59 12/01/16 13:09 Polyethylene Glycol (Miralax) 17 gm BEDTIME ORAL 12/01/16 21:00 12/31/16 20:59 Polyethylene Glycol (Miralax) 17 gm HSPRN PRN ORAL Constipation 11/27/16 16:15 12/27/16 16:14 Ranitidine HCl (Zantac) 150 mg BEDTIME ORAL 12/01/16 21:00 12/31/16 20:59 Sucralfate (Carafate) 1 gm FOUR TIMES A DAY ORAL 11/27/16 18:00 12/27/16 17:59 12/01/16 12:47 Temazepam (Restoril) 15 mg HSPRN PRN ORAL Insomnia 11/27/16 16:15 12/04/16 16:14 RIC GONZALES Dec 01, 2016 13:52
[2016-12-01] MEDS: Ertapenem 1 GM in NS 55 ML IVPB SCH (15:05)
[2016-12-01 16:00] VITALS: BP 145/66
--- NOTE | 2016-12-01 16:53 | Infectious Diseases Prog Note ---
Assessment/Plan Assessment/Plan IMPRESSION: 1. ESBL E coli urosepsis. 2. Chronic lymphedema of legs. no active cellulitis. has venous stasis with severe lichenification. The patient was seen by green jobs trainer that ordered vascular studies. 3. Morbid obesity. 4. Anemia. 5. Congestive heart failure, chronic. PCXR with cardiomegaly but no pna or effusion. 6. Depression. 7. Chronic obstructive pulmonary disease. 8. onychomycosis. chronic. can consider lamisil as outpatient with her primary care physician. 9. N/V. improved. likely related to #1. 10. afebrile 11. no leukocytosis 12. no acid/base disturbance 13. mild pre-renal azotemia, improved RECOMMENDATIONS: --continue IV ertapenem 1gm q24hr D#3 of 10 (s/p 11/29 empiric IV zosyn D#2) --f/u blood cx --Can continue abx at [facility]. I think her veins are good enough that she'll be able to complete her treatment course at SNF through serial PIV, but if venous access becomes an issue, she'll need a picc prior to hospital discharge. --s/p GI eval for n/v and chronic anemia Will continue to follow. Covering for Dr. Kay, please call me with questions, Subjective Constitutional: Reports: no symptoms HEENT: Reports: no symptoms Respiratory: Reports: no symptoms Cardiovascular: Reports: no symptoms Gastrointestinal/Abdominal: Reports: nausea Genitourinary: Reports: no symptoms Skin: Reports: no symptoms Hematologic: Reports: no symptoms Allergies: Coded Allergies: HALOPERIDOL (Verified Allergy, Unknown, 01/28/09) HALOPERIDOL LACTATE (Unverified Allergy, Unknown, 07/30/16) VANCOMYCIN (Unverified Adverse Reaction, Intermediate, Shortness of Breath , 06/26/13) Objective Vital Signs Last 24 Hour Vital Signs Date Time Temp Pulse Resp B/P (MAP) Pulse Ox O2 Delivery O2 Flow Rate FiO2 12/01/16 14:00 122/76 12/01/16 14:00 116 122/76 12/01/16 12:00 97.9 66 20 148/71 99 Room Air 12/01/16 08:00 97.7 66 20 146/75 94 Room Air 12/01/16 07:45 95 Nasal Cannula 3.0 8/23/17 07:45 Nasal Cannula 3.0 32 12/01/16 07:45 71 18 Nasal Cannula 3.0 32 12/01/16 05:27 146/80 12/01/16 05:27 65 146/80 12/01/16 04:00 97.2 65 19 146/80 96 Room Air 11/30/16 23:22 97.2 61 20 140/69 95 Room Air 11/30/16 20:44 70 172/89 11/30/16 20:43 172/89 11/30/16 20:00 97.5 60 20 150/82 95 Room Air 11/30/16 19:00 Nasal Cannula 3.0 32 11/30/16 19:00 77 18 Nasal Cannula 3.0 32 11/30/16 19:00 96 Nasal Cannula 3.0 Height (Feet): 5 Height (Inches): 7.00 Weight (Pounds): 245 Objective GENERAL APPEARANCE: obese. awake, alert, pleasant, reports feeling much better today. HEAD AND NECK: Normocephalic. neck supple HEART: rrr, no murmurs, PMI displaced laterally LUNGS: CTA b/l ABDOMEN: Obese and soft, nttp, no rebound, no guarding. EXTREMITIES: Bilateral lymphedema. Bilateral chronic ischemic changes with hyperkeratotic lesions, severe lichenification, and severe onychomycosis. 11/27 Ucx: URINE CULTURE Final COMMENTS: KNOWN ESBL. Organism 1 ESCHERICHIA COLI - ESBL COLONY COUNT: >100,000 CFU/ML ESCC ESB M.I.C. RX --------- --- AMPICILLIN >=32 R CEFAZOLIN >=64 R CEFTAZIDIME >=64 R CEFTRIAXONE >=64 R CEFEPIME 4 R CIPROFLOXACIN >=4 R ERTAPENEM <=0.5 S GENTAMICIN >=16 R LEVOFLOXACIN >=8 R IMIPENEM <=0.25 S NITROFURANTOIN 32 S TIGECYCLINE 1 S TRIMETHOPRIM/SULFA >=320 R AMIKACIN <=2 S PIPERACILLIN/TAZOBACTAM >=128 R Current Medications Medications (Trade) Dose Ordered Sig/Shiraz Route PRN Reason Start Time Stop Time Status Last Admin Dose Admin Acetaminophen (Tylenol) 650 mg Q4H PRN ORAL Mild Pain (Pain Scale 1-3) 11/27/16 16:15 9/18/17 16:14 Al Hydroxide/Mg Hydroxide (Mylanta II) 30 ml Q6H PRN ORAL dyspepsia 11/27/16 16:15 12/27/16 16:14 12/01/16 06:28 Albuterol/ Ipratropium (DuoNeb 0.5-3(2.5)mg/3ml) 3 ml Q4H PRN HHN Shortness of Breath 11/27/16 16:15 12/02/16 16:14 Dextrose (Dextrose 50%) STAT PRN IV Hypoglycemia 11/27/16 16:15 12/27/16 16:14 Diltiazem HCl (Cardizem) 60 mg EVERY 8 HOURS ORAL 11/27/16 22:00 12/27/16 21:59 12/01/16 05:27 Docusate Sodium (Colace) 100 mg THREE TIMES A DAY ORAL 12/01/16 13:00 12/31/16 12:59 12/01/16 12:47 Ertapenem 1 gm/ Sodium Chloride 55 ml @ 110 mls/hr Q24H IVPB 11/29/16 14:00 12/04/16 13:59 12/01/16 15:05 Escitalopram Oxalate (Lexapro) 10 mg DAILY ORAL 12/01/16 09:00 12/31/16 08:59 12/01/16 08:36 Esomeprazole Sodium (Nexium I.v.) 40 mg DAILY IVP 12/02/16 09:00 01/01/17 08:59 Heparin Sodium (Porcine) (Heparin 5000 units/ml) 5,000 units EVERY 12 HOURS SUBQ 11/27/16 21:00 12/27/16 20:59 11/28/16 22:08 Hydralazine HCl (Apresoline) 25 mg EVERY 8 HOURS ORAL 11/28/16 14:00 12/28/16 13:59 12/01/16 05:27 Magnesium Hydroxide (Mom) 30 ml HSPRN PRN ORAL Constipation 11/27/16 16:15 12/27/16 16:14 Mirtazapine (Remeron) 15 mg BEDTIME ORAL 11/29/16 21:00 12/29/16 20:59 11/30/16 20:44 Morphine Sulfate (Morphine Sulfate) 2 mg Q4H PRN IVP PAIN 4-10 11/27/16 18:00 12/04/16 17:59 12/01/16 13:10 Nitroglycerin (Ntg) 0.4 mg Q5M X 3 DOSES PRN SL Prn Chest Pain 11/27/16 16:15 12/27/16 16:14 11/29/16 09:02 Ondansetron HCl (Zofran) 4 mg Q4HR PRN IVP Nausea & Vomiting 11/28/16 17:00 12/28/16 16:59 12/01/16 13:09 Polyethylene Glycol (Miralax) 17 gm BEDTIME ORAL 12/01/16 21:00 12/31/16 20:59 Polyethylene Glycol (Miralax) 17 gm HSPRN PRN ORAL Constipation 11/27/16 16:15 12/27/16 16:14 Ranitidine HCl (Zantac) 150 mg BEDTIME ORAL 12/01/16 21:00 12/31/16 20:59 Sucralfate (Carafate) 1 gm FOUR TIMES A DAY ORAL 11/27/16 18:00 12/27/16 17:59 12/01/16 12:47 Temazepam (Restoril) 15 mg HSPRN PRN ORAL Insomnia 11/27/16 16:15 12/04/16 16:14 Dirk Okeefe M.D. Dec 01, 2016 16:53
[2016-12-01] MEDS ORDERED: Miralax 17gm pkt ORAL SCH (21:00)
--- NOTE | 2016-12-01 23:03 | General Progress Note ---
Assessment/Plan Status: stable Assessment/Plan cont current meds Subjective Constitutional: Reports: weakness Neurologic/Psychiatric: Reports: anxiety, emotional problems Allergies: Coded Allergies: HALOPERIDOL (Verified Allergy, Unknown, 01/28/09) HALOPERIDOL LACTATE (Unverified Allergy, Unknown, 07/30/16) VANCOMYCIN (Unverified Adverse Reaction, Intermediate, Shortness of Breath , 06/26/13) Subjective stable and is doing well Objective Last 24 Hour Vital Signs Date Time Temp Pulse Resp B/P (MAP) Pulse Ox O2 Delivery O2 Flow Rate FiO2 12/01/16 16:00 97.5 60 20 145/66 97 Room Air 12/01/16 14:00 122/76 12/01/16 14:00 116 122/76 12/01/16 12:00 97.9 66 20 148/71 99 Room Air 12/01/16 08:00 97.7 66 20 146/75 94 Room Air 12/01/16 07:45 95 Nasal Cannula 3.0 12/01/16 07:45 Nasal Cannula 3.0 32 12/01/16 07:45 71 18 Nasal Cannula 3.0 32 12/01/16 05:27 146/80 12/01/16 05:27 65 146/80 12/01/16 04:00 97.2 65 19 146/80 96 Room Air 11/30/16 23:22 97.2 61 20 140/69 95 Room Air Height (Feet): 5 Height (Inches): 7.00 Weight (Pounds): 245 General Appearance: no apparent distress, alert, overweight Neurologic: alert, oriented x 3, responsive, depressed affect Harris Ballesteros M.D. Dec 01, 2016 23:03
[2016-12-02] MEDS ORDERED: Esomeprazole sodium 40mg vial IVP SCH (09:00)
--- NOTE | 2016-12-02 17:11 | Discharge Summary ---
Discharge Summary Hospital Course Date of Admission Nov 27, 2016 at 14:06 Date of Discharge Dec 01, 2016 at 18:02 Admitting Diagnosis altered mental status HPI Charisse Couch is a 66 year old female who was admitted on Nov 27, 2016 at 14:06 for Altered Mental Status Hospital Course [id number] Discharge Discharge Disposition Patient was discharged to SNF/Subacute Facility(03) Discharge Diagnoses: Julee Gonzalez NP Dec 02, 2016 17:11
--- NOTE | 2016-12-03 06:46 | Discharge Summary 2 SIG ---
DATE OF ADMISSION: 11/27/2016 DATE OF DISCHARGE: 12/01/2016 HEALTH AND HUMAN PERFORMANCE PROFESSOR: 1. Dirk Okeefe M.D. 2. Harris Ballesteros M.D. 3. Mervin Victoria M.D. BRIEF HOSPITAL COURSE: The patient is a 66-year-old female with medical history of COPD, dementia, chronic lymphedema, hypertension, hypothyroidism, and CHF with diastolic dysfunction, presented to ED due to altered mental status. The patient has been more altered than usual and reported dysuria with suprapubic discomfort for a week with no fever, no chills, no shortness of breath and no chest pain. Workup in the ED revealed no leukocytosis and no fever, however, urinalysis was grossly positive for UTI. Chest x-ray done showed no acute cardiopulmonary pathology. CT of the head was not done due to lack of focal deficits. No trauma. No injury. She was given fluid resuscitation and was started on empiric antibiotics, was admitted to medical floor for acute encephalopathy secondary to urinary tract infection, dehydration, hypertension and COPD. She was given oxygen therapy. Echocardiogram done recently showed preserved ejection fraction with diastolic dysfunction. There was no evidence of decompensation. She was given IV Zosyn by Infectious Disease specialist. Urine culture showed growth of ESBL E. coli. Zosyn was discontinued and was given ertapenem. Blood cultures did not isolate any growth. Psychiatric evaluation done. The patient has been on citalopram for a while. She was diagnosed to have major depressive disorder, anxiety disorder, and opiate pain medication dependence. Lexapro was discontinued and was given Remeron 15 mg, which may also help with nausea and sleep. She had an episode of emesis and reported constipation. She was given proton-pump inhibitors and ranitidine at bedtime. Carafate was discontinued. She was given bowel regimen consisting of MiraLAX, Colace and Dulcolax. She was advised to decrease narcotic use. She underwent physical therapy and occupational therapy and was cleared by ID to continue IV antibiotics at SNF. FINAL DIAGNOSES: 1. Sepsis, secondary to extended-spectrum beta-lactamases Escherichia coli urinary tract infection. 2. Acute toxic encephalopathy, secondary to infectious process. 3. Hypertension. 4. Dehydration. 5. Morbid obesity. 6. Chronic obstructive pulmonary disease. 7. Major depressive disorder. 8. Anxiety disorder. 9. Chronic onychomycosis. 10. Lymphedema. 11. Constipation. 12. Opiate dependence. 13. Gastroesophageal reflux disease. DISPOSITION: The patient was discharged to [facility]. DISCHARGE MEDICATIONS: Refer to medication list. Continue ertapenem for three more days. Lilibeth Clarke M.D. I have been assigned to dictate discharge summary on this account and I was not involved in the patient's management. Julee Gonzalez N.P. DR: CHUY JOB#: [id number] CC: ALEXANDREA
== END 2016-12-01 18:02 | DRG 720 ==
LOC: EDBD 12:41 → EMR 13:15 → 4E 14:06 → EDBEDREQ 14:37
DX: A41.9 Sepsis, unspecified organism (principal); G92 Toxic encephalopathy; F03.90 Unspecified dementia, unspecified severity, without behavioral disturbance, psychotic disturbance, mood disturbance, and anxiety; I11.0 Hypertensive heart disease with heart failure; I50.32 Chronic diastolic (congestive) heart failure; B35.1 Tinea unguium; D64.9 Anemia, unspecified; N39.0 Urinary tract infection, site not specified; E86.0 Dehydration; E66.01 Morbid (severe) obesity due to excess calories; J44.9 Chronic obstructive pulmonary disease, unspecified; B96.29 Other Escherichia coli [E. coli] as the cause of diseases classified elsewhere; Z16.12 Extended spectrum beta lactamase (ESBL) resistance; E03.9 Hypothyroidism, unspecified; F32.9 Major depressive disorder, single episode, unspecified; F41.9 Anxiety disorder, unspecified; G47.00 Insomnia, unspecified; K59.00 Constipation, unspecified; K21.9 Gastro-esophageal reflux disease without esophagitis; F11.20 Opioid dependence, uncomplicated; Z68.38 Body mass index [BMI] 38.0-38.9, adult
CPT/HCPCS: 36415; 71010; 80048; 80053; 80061; 81003; 82550; 82553; 82962; 83605; 83880; 84443; 84484; 85025; 87040; 87086; 87181; 93005; 94664; 94760; J2405

== ENCOUNTER 2017-03-20 11:47 | Inpatient (IN) | payer MEDICAID ==
[2017-03-20] VITALS (7 sets, daily range): BP systolic 136–159; BP diastolic 73–115
[~2017-03-20] VITALS: Ht 165.1 cm; Wt 158.8 kg
[~2017-03-20 11:47] MED LIST changes: +INVANZ1 G1 IM
[2017-03-20] MEDS ORDERED: NORCO 5-325 TA1 EAC1 ORAL (12:15)
[2017-03-20] MEDS ORDERED: EFFEXOR XR37.5 MG ORAL (12:15)
[2017-03-20] MEDS ORDERED: ATIVAN0.5 MG ORAL (12:15)
[2017-03-20] MEDS ORDERED: MACROBID100 MG ORAL (12:15)
[2017-03-20] MEDS ORDERED: MULTIVITAMINS1 EAC8 ORAL (12:15)
[2017-03-20] MEDS ORDERED: PHENAZOPYRIDIN200 MG ORAL (12:15)
--- NOTE | 2017-03-20 12:37 | Emergency Room Report ---
History of Present Illness General Chief Complaint: Chest Pain Source: Patient, Medical Record Present Illness HPI Patient present with complaints of midsternal chest pain heaviness Patient feels worsening symptom with exertion Denies any vomiting or diarrhea Denies any fevers or chills denies any recent travel Pain is 3/10 midsternal heaviness denies any other radiation Denies any neck pain or photophobia Allergies: Coded Allergies: HALOPERIDOL (Verified Allergy, Unknown, 01/28/09) HALOPERIDOL LACTATE (Unverified Allergy, Unknown, 07/30/16) VANCOMYCIN (Unverified Adverse Reaction, Intermediate, Shortness of Breath , 06/26/13) Patient History Past Medical History: see triage record Pertinent Family History: none Reviewed Nursing Documentation: PMH: Agreed, PSxH: Agreed Nursing Documentation-PMH Hx Cardiac Problems: Yes - CHF Hx Hypertension: Yes Hx Pacemaker: No Hx Asthma: No Hx COPD: Yes - Lymphedema Hx Cancer: No Hx Dialysis: No History Of Psychiatric Problem: Yes - Dementia Hx Neurological Problems: Yes - Encephalopathy Hx Cerebrovascular Accident: No Hx Seizures: No Hx Weakness: Yes Review of Systems All Other Systems: negative except mentioned in HPI Physical Exam Vital Signs Date Time Temp Pulse Resp B/P (MAP) Pulse Ox O2 Delivery O2 Flow Rate FiO2 03/20/17 11:57 98.1 83 20 170/108 100 Nasal Cannula 2.0 Sp02 EP Interpretation: reviewed, normal General Appearance: well appearing, no apparent distress Head: normocephalic, atraumatic Eyes: bilateral eye PERRL, bilateral eye EOMI ENT: hearing grossly normal, normal pharynx, TMs + canals normal, uvula midline Neck: full range of motion, supple, no meningismus, no bony tend Respiratory: lungs clear, normal breath sounds, no rhonchi, no respiratory distress, no retraction, no accessory muscle use Cardiovascular #1: normal peripheral pulses, regular rate, rhythm, no edema, no gallop, no JVD, no murmur Gastrointestinal: normal bowel sounds, non tender, soft, no mass, no organomegaly, non-distended, no guarding, no hernia, no pulsatile mass, no rebound Genitourinary: no CVA tenderness Musculoskeletal: normal inspection Neurologic: oriented x3, responsive, web application dev specialist III-XII nml as tested, motor strength/ tone normal, sensory intact Psychiatric: mood/affect normal Skin: warm/dry, palpation normal, other - Patient has bilateral lower extremity edema, erythema, and line with lymphedema and venous stasis Lymphatic: other - lymphedema Medical Decision Making Diagnostic Impression: Primary Impression: ACS (acute coronary syndrome) ER Course Patient is a fairly complex patient with multiple differential to consideration including but not limited to cardiac cardiopulmonary and vascular emergencies Patient's EKG and blood work are appropriate patient was provided with aspirin At this time given the risk factors and presentation Patient admitted for further care Labs Test 03/20/17 12:25 White Blood Count 4.7 K/UL (4.8-10.8) Red Blood Count 4.60 M/UL (4.20-5.40) Hemoglobin 12.5 G/DL (12.0-16.0) Hematocrit 38.5 % (37.0-47.0) Mean Corpuscular Volume 84 FL (80-99) Mean Corpuscular Hemoglobin 27.0 PG (27.0-31.0) Mean Corpuscular Hemoglobin Concent 32.3 G/DL (32.0-36.0) Red Cell Distribution Width 14.7 % (11.6-14.8) Platelet Count 180 K/UL (150-450) Mean Platelet Volume 6.4 FL (6.5-10.1) Neutrophils (%) (Auto) 63.1 % (45.0-75.0) Lymphocytes (%) (Auto) 25.7 % (20.0-45.0) Monocytes (%) (Auto) 9.5 % (1.0-10.0) Eosinophils (%) (Auto) 0.8 % (0.0-3.0) Basophils (%) (Auto) 0.9 % (0.0-2.0) Sodium Level 145 MMOL/L (136-145) Potassium Level 3.9 MMOL/L (3.5-5.1) Chloride Level 110 MMOL/L (98-107) Carbon Dioxide Level 28 MMOL/L (21-32) Anion Gap 8 mmol/L (5-15) Blood Urea Nitrogen 23 mg/dL (7-18) Creatinine 0.8 MG/DL (0.55-1.30) Estimat Glomerular Filtration Rate > 60 mL/min (>60) Glucose Level 112 MG/DL (74-106) Calcium Level 9.3 MG/DL (8.5-10.1) Total Bilirubin 0.5 MG/DL (0.2-1.0) Aspartate Amino Transf (AST/SGOT) 14 U/L (15-37) Alanine Aminotransferase (ALT/SGPT) 19 U/L (12-78) Alkaline Phosphatase 106 U/L (46-116) Total Creatine Kinase 36 U/L (26-308) Creatine Kinase MB 1.0 NG/ML (0.0-3.6) Creatine Kinase MB Relative Index 2.7 Troponin I 0.000 ng/mL (0.000-0.056) Total Protein 8.2 G/DL (6.4-8.2) Albumin 3.7 G/DL (3.4-5.0) Globulin 4.5 g/dL Albumin/Globulin Ratio 0.8 (1.0-2.7) Lipase 126 U/L (73-393) EKG Diagnostic Results Rate: normal Rhythm: NSR ST Segments: no acute changes Rhythm Strip Diag. Results EP Interpretation: yes Rate: 66 Rhythm: NSR, no PVC's, no ectopy Chest X-Ray Diagnostic Results Chest X-Ray Diagnostic Results : Chest X-Ray Ordered: Yes # of Views/Limited/Complete: 1 View Indication: Chest Pain EP Interpretation: Yes Interpretation: no consolidation, no effusion, no pneumothorax Impression: No acute disease Electronically Signed by: DO Chris Gaona Vital Signs Date Time Temp Pulse Resp B/P (MAP) Pulse Ox O2 Delivery O2 Flow Rate FiO2 03/20/17 12:00 84 17 Nasal Cannula 03/20/17 12:00 98.1 159/110 96 03/20/17 11:57 2.0 Status: improved Disposition: ADMITTED INPATIENT Condition: Serious KANDY RUELAS D.O. Mar 20, 2017 12:37
[2017-03-20 12:38] LABS: BASOPHILS % (AUTO) 0.9 % (0.0-2.0); EOSINOPHILS % (AUTO) 0.8 % (0.0-3.0); LYMPHOCYTES % (AUTO) 25.7 % (20.0-45.0); MEAN CORPUSCULAR HGB CONC 32.3 G/DL (32.0-36.0); MEAN CORPUSCULAR VOLUME 84 FL (80-99); MEAN PLATELET VOLUME 6.4 FL (6.5-10.1); MONOCYTES % (AUTO) 9.5 % (1.0-10.0); NEUTROPHILS % (AUTO) 63.1 % (45.0-75.0); PLATELET COUNT 180 K/UL (150-450); RED CELL DISTRIBUTION WIDTH 14.7 % (11.6-14.8); WHITE BLOOD COUNT 4.7 K/UL (4.8-10.8)
[2017-03-20] MEDS ORDERED: Morphine Sulfate 4mg/ml Inj IVP ONE (13:00)
[2017-03-20 13:12] LABS: ANION GAP 8 mmol/L (5-15); CALCIUM 9.3 MG/DL (8.5-10.1); CARBON DIOXIDE 28 MMOL/L (21-32); CHLORIDE 110 MMOL/L (98-107); CREATININE 0.8 MG/DL (0.55-1.30); GLOMERULAR FILTRATION RATE > 60 mL/min (>60); POTASSIUM 3.9 MMOL/L (3.5-5.1); SODIUM 145 MMOL/L (136-145)
[2017-03-20 13:29] LABS: ALANINE AMINOTRANSFERASE 19 U/L (12-78); ALBUMIN/GLOBULIN RATIO 0.8 (1.0-2.7); ASPARTATE AMINO TRANSFERASE 14 U/L (15-37); LIPASE 126 U/L (73-393); TOTAL PROTEIN 8.2 G/DL (6.4-8.2)
[2017-03-20 16:45] LABS: APPEARANCE,URINE CLOUDY; KETONES,URINE NEGATIVE (NEGATIVE); LEUKOCYTE ESTERASE ,URINE 3+ (NEGATIVE); NITRITE,URINE POSITIVE (NEGATIVE); PH,URINE 6 (4.5-8.0); PROTEIN,URINE 3+ (NEGATIVE); UROBILINOGEN,URINE 1 MG/DL (0.0-1.0)
[2017-03-20] MEDS ORDERED: Miralax 17gm pkt ORAL PRN (17:00)
[2017-03-20] MEDS ORDERED: Ketorolac 30mg Inj IV PRN (17:00)
[2017-03-20] MEDS ORDERED: dilTIAZem HCl 25mg/5ml Inj IV PRN (17:00)
[2017-03-20] MEDS ORDERED: Albuterol/Ipratropium 3ml neb HHN PRN (17:00)
[2017-03-20] MEDS ORDERED: LORazepam 0.5mg tab ORAL PRN (17:00)
[2017-03-20] MEDS ORDERED: Enalaprilat 2.5mg/2ml Inj IV PRN (17:00)
[2017-03-20] MEDS ORDERED: Nitroglycerin Subl 0.4mg tab SL PRN (17:00)
[2017-03-20 17:19] LABS: WBC,URINE TNTC /HPF (0 - 2)
[2017-03-20 17:20] LABS: BACTERIA,URINE MANY /HPF; ICTOTEST NEGATIVE; SQUAMOUS EPITHELIAL CELL,UR MANY /LPF (NONE/OCC)
[2017-03-20] MEDS: Sucralfate 1gm tab ORAL SCH ×2 (17:38→21:53)
[2017-03-20] MEDS: HydrALAZINE 10mg Tab ORAL SCH (17:38)
[2017-03-20] MEDS: Morphine Sulfate 2mg/ml Inj IVP PRN ×2 (17:39→21:48)
[2017-03-20] MEDS: Heparin 5000 units/ml inj SUBQ SCH (21:44)
[2017-03-20] MEDS: dilTIAZem HCl 60mg tab ORAL SCH (22:00)
[2017-03-21] VITALS (7 sets, daily range): BP systolic 149–159; BP diastolic 69–105
[2017-03-21] MEDS: HydrALAZINE 10mg Tab ORAL SCH ×4 (00:14→18:00)
[2017-03-21] MEDS: Morphine Sulfate 2mg/ml Inj IVP PRN ×5 (02:00→22:13)
[2017-03-21] MEDS: dilTIAZem HCl 60mg tab ORAL SCH ×3 (06:00→21:58)
[2017-03-21] MEDS: Heparin 5000 units/ml inj SUBQ SCH ×2 (09:00→22:10)
[2017-03-21] MEDS: Sucralfate 1gm tab ORAL SCH ×5 (09:00→21:58)
[2017-03-21] MEDS: Venlafaxine XR 37.5mg cap ORAL SCH ×2 (09:00→11:22)
[2017-03-21] MEDS: Aspirin Baby 81mg ORAL SCH ×2 (09:00→11:21)
--- NOTE | 2017-03-21 09:58 | Diagnostic Imaging Report ---
Indication: Chest pain Technique: One view of the chest Comparison: 11/27/2016 Findings: The heart is enlarged. No definite acute infiltrates, effusions, congestion, or significant interim change. The aorta is elongated Impression: No definite acute process Cardiomegaly
--- NOTE | 2017-03-21 13:03 | History and Physical ---
History of Present Illness General Date patient seen: Mar 20, 2017 Reason for Hospitalization: Chest Pain Present Illness HPI 55 year old female with hx of morbid obesity, DM. COPD, Elephantiasis, presented from longterm with complaints of midsternal chest pain heaviness Pain is 3/10 midsternal heaviness denies any other radiation. Allergies: Coded Allergies: HALOPERIDOL (Verified Allergy, Unknown, 01/28/09) HALOPERIDOL LACTATE (Unverified Allergy, Unknown, 07/30/16) VANCOMYCIN (Unverified Adverse Reaction, Intermediate, Shortness of Breath , 06/26/13) Medication History Scheduled Diltiazem Hcl* (Cardizem*), 60 MG ORAL EVERY 8 HOURS, (Reported) Docusate Sodium* (Colace*), 100 MG ORAL DAILY, (Reported) Ertapenem (Invanz), 1 GM IM DAILY Escitalopram Oxalate* (Lexapro*), 10 MG ORAL DAILY, (Reported) Hydralazine Hcl* (Hydralazine Hcl*), 10 MG ORAL EVERY 6 HOURS, (Reported) Magnesium Hydroxide* (Milk Of Magnesia*), 30 ML ORAL DAILY, (Reported) Multivitamin With Minerals (Multivitamins With Minerals*), 1 TAB ORAL DAILY, ( Reported) Nitrofurantoin Monohyd/M-Cryst (Nitrofurantoin [place]-Mcr 100 mg), 100 MG ORAL BID , (Reported) Phenazopyridine Hcl* (Pyridium*), 200 MG ORAL THREE TIMES A DAY, (Reported) Sucralfate* (Carafate*), 1 GM ORAL FOUR TIMES A DAY, (Reported) Venlafaxine Hcl* (Effexor Xr*), 37.5 MG ORAL DAILY, (Reported) Scheduled PRN Acetaminophen With Codeine (T#3) (Tylenol #3 Tab*), 1 TAB ORAL Q6H PRN for For Pain, (Reported) Hydrocodone Bit/Acetaminophen 5-325* ([place] 5-325 Tablet*), 1 TAB ORAL Q4H PRN for For Pain, (Reported) Lorazepam* (Ativan*), 0.5 MG ORAL Q6HR PRN for For Anxiety, (Reported) Patient History Healthcare decision maker N Resuscitation status Full Code Advanced Directive on File Past Medical/Surgical History Past Medical/Surgical History: (1) Lymphedema (2) Obesity (3) Essential hypertension (4) Chronic ulcer of leg Review of Systems Respiratory: Reports: shortness of breath, CASTLE, sputum All Other Systems: negative except mentioned in HPI Physical Exam General Appearance: WD/WN Lines, tubes and drains: peripheral HEENT: normocephalic Neck: non-tender, normal alignment Respiratory/Chest: chest wall non-tender Cardiovascular/Chest: normal peripheral pulses, normal rate Genitourinary/Rectal: normal genital exam Extremities: normal range of motion Skin Exam: normal pigmentation Last 24 Hour Vital Signs Date Time Temp Pulse Resp B/P (MAP) Pulse Ox O2 Delivery O2 Flow Rate FiO2 03/21/17 11:20 193/115 03/21/17 08:00 82 03/21/17 08:00 97.7 96 20 151/89 97 03/21/17 06:00 150/90 03/21/17 06:00 88 150/90 03/21/17 04:10 88 150/90 03/21/17 04:00 97.7 91 21 159/105 90 Room Air 03/21/17 04:00 88 03/21/17 00:14 150/95 03/21/17 00:00 97.3 75 18 150/95 95 Room Air 03/21/17 00:00 72 03/20/17 22:00 72 150/95 03/20/17 20:10 72 150/95 03/20/17 20:00 65 03/20/17 20:00 97.9 66 20 150/115 91 Room Air 03/20/17 18:09 97.3 03/20/17 17:38 136/74 03/20/17 16:41 97.3 72 18 136/74 97 03/20/17 16:30 98.6 76 18 140/89 96 Nasal Cannula 2.0 03/20/17 16:25 76 18 140/89 96 Nasal Cannula 2.0 03/20/17 16:00 70 03/20/17 15:07 98.6 73 14 136/73 96 Room Air 03/20/17 14:32 98.1 03/20/17 12:58 84 14 155/88 96 Room Air Laboratory Tests Test 03/20/17 16:00 03/20/17 17:22 Urine Color Yellow Urine Appearance Cloudy Urine pH 6 (4.5-8.0) Urine Specific [place] 1.020 (1.005-1.035) Urine Protein 3+ (NEGATIVE) H Urine Glucose (UA) Negative (NEGATIVE) Urine Ketones Negative (NEGATIVE) Urine Occult Blood 4+ (NEGATIVE) H Urine Nitrite Positive (NEGATIVE) H Urine Bilirubin 1+ (NEGATIVE) H Urine Ictotest Negative Urine Urobilinogen 1 MG/DL (0.0-1.0) H Urine Leukocyte Esterase 3+ (NEGATIVE) H Urine RBC 10-15 /HPF (0 - 2) H Urine WBC Tntc /HPF (0 - 2) H Urine Squamous Epithelial Cells Many /LPF (NONE/OCC) H Urine Bacteria Many /HPF (NONE) H Troponin I 0.000 ng/mL (0.000-0.056) Microbiology Date/Time Source Procedure Growth Status 03/20/17 16:00 Urine,Clean Catch Urine Culture - Preliminary Gram Negative Bacillus 1 Resulted Height (Feet): 5 Height (Inches): 5.00 Weight (Pounds): 350 Medications Current Medications Medications (Trade) Dose Ordered Sig/Shiraz Route PRN Reason Start Time Stop Time Status Last Admin Dose Admin Acetaminophen (Tylenol) 650 mg Q4H PRN ORAL FEVER 03/20/17 17:00 04/19/17 16:59 Albuterol/ Ipratropium (Albuterol/ Ipratropium) 3 ml Q4H PRN HHN Shortness of Breath 03/20/17 17:00 03/25/17 16:59 Aspirin (ASA) 162 mg DAILY ORAL 03/21/17 09:00 04/20/17 08:59 03/21/17 11:21 Diltiazem HCl (Cardizem) 10 mg Q1H PRN IV heart rate more than 120, 03/20/17 17:00 04/19/17 16:59 Diltiazem HCl (Cardizem) 60 mg EVERY 8 HOURS ORAL 03/20/17 22:00 04/19/17 21:59 Enalaprilat (Vasotec) 2.5 mg Q6H PRN IV sbp more than 160 03/20/17 17:00 04/19/17 16:59 Escitalopram Oxalate (Lexapro) 10 mg DAILY ORAL 03/21/17 09:00 04/20/17 08:59 03/21/17 11:21 Heparin Sodium (Porcine) (Heparin 5000 units/ml) 5,000 units EVERY 12 HOURS SUBQ 03/20/17 21:00 04/19/17 20:59 03/20/17 21:44 Hydralazine HCl (Apresoline) 10 mg EVERY 6 HOURS ORAL 03/20/17 18:00 04/19/17 17:59 03/21/17 11:20 Ketorolac Tromethamine (Toradol 30mg) 30 mg Q6H PRN IV moderate pain ( 4-6) 03/20/17 17:00 03/25/17 16:59 Lorazepam (Ativan) 0.5 mg Q6H PRN ORAL For Anxiety 03/20/17 17:00 03/27/17 16:59 Morphine Sulfate (Morphine Sulfate) 2 mg Q4H PRN IVP severe Pain (Pain Scale 7-10) 03/20/17 17:00 03/27/17 16:59 03/21/17 11:30 Nitroglycerin (Ntg) 0.4 mg Every 5 Minutes PRN SL Prn Chest Pain 03/20/17 17:00 04/19/17 16:59 Ondansetron HCl (Zofran) 4 mg Q6H PRN IVP Nausea & Vomiting 03/20/17 17:00 04/19/17 16:59 03/21/17 06:26 Polyethylene Glycol (Miralax) 17 gm DAILYPRN PRN ORAL Constipation 03/20/17 17:00 04/19/17 16:59 Sucralfate (Carafate) 1 gm FOUR TIMES A DAY ORAL 03/20/17 18:00 04/19/17 17:59 03/21/17 11:21 Temazepam (Restoril) 15 mg HSPRN PRN ORAL Insomnia 03/20/17 17:00 03/27/17 16:59 Venlafaxine HCl (Effexor-XR) 37.5 mg DAILY ORAL 03/21/17 09:00 04/20/17 08:59 03/21/17 11:22 Assessment/Plan Problem List: (1) ACS (acute coronary syndrome) ICD Codes: I24.9 - Acute ischemic heart disease, unspecified SNOMED: 344289307 (2) Essential hypertension ICD Codes: I10 - Essential (primary) hypertension SNOMED: 46747667 (3) Obesity ICD Codes: E66.9 - Obesity, unspecified SNOMED: 811641347 (4) Chronic ulcer of leg ICD Codes: L97.909 - Non-prs chronic ulc unsp prt of unsp low leg w unsp severity SNOMED: 14750898 (5) Lymphedema Assessment/Plan serial ekg, troponin, echo cardiology evaluation wound care monitor BP RIC GONZALES Mar 21, 2017 13:03
--- NOTE | 2017-03-21 13:14 | Pulmonology Progress Note ---
Assessment/Plan Problems: (1) ACS (acute coronary syndrome) (2) Essential hypertension (3) Obesity (4) Chronic ulcer of leg (5) Lymphedema Assessment/Plan f/u cardio recommendations check echo pain management psych evaluation Subjective ROS Limited/Unobtainable: No Constitutional: Reports: no symptoms HEENT: Repors: no symptoms Respiratory: Reports: no symptoms Allergies: Coded Allergies: HALOPERIDOL (Verified Allergy, Unknown, 01/28/09) HALOPERIDOL LACTATE (Unverified Allergy, Unknown, 07/30/16) VANCOMYCIN (Unverified Adverse Reaction, Intermediate, Shortness of Breath , 06/26/13) Objective Last 24 Hour Vital Signs Date Time Temp Pulse Resp B/P (MAP) Pulse Ox O2 Delivery O2 Flow Rate FiO2 03/21/17 11:20 193/115 03/21/17 08:00 82 03/21/17 08:00 97.7 96 20 151/89 97 03/21/17 06:00 150/90 03/21/17 06:00 88 150/90 03/21/17 04:10 88 150/90 03/21/17 04:00 97.7 91 21 159/105 90 Room Air 03/21/17 04:00 88 03/21/17 00:14 150/95 03/21/17 00:00 97.3 75 18 150/95 95 Room Air 03/21/17 00:00 72 03/20/17 22:00 72 150/95 03/20/17 20:10 72 150/95 03/20/17 20:00 65 03/20/17 20:00 97.9 66 20 150/115 91 Room Air 03/20/17 18:09 97.3 03/20/17 17:38 136/74 03/20/17 16:41 97.3 72 18 136/74 97 03/20/17 16:30 98.6 76 18 140/89 96 Nasal Cannula 2.0 03/20/17 16:25 76 18 140/89 96 Nasal Cannula 2.0 03/20/17 16:00 70 03/20/17 15:07 98.6 73 14 136/73 96 Room Air 03/20/17 14:32 98.1 General Appearance: WD/WN Respiratory/Chest: chest wall non-tender, lungs clear Breasts: no masses Cardiovascular: normal peripheral pulses, normal rate Abdomen: normal bowel sounds, soft, non tender Genitourinary: normal external genitalia Extremities: no cyanosis Skin: no rash Neurologic/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 grossly normal Lymphatic: no neck adenopathy Musculoskeletal: normal muscle bulk Microbiology Date/Time Source Procedure Growth Status 03/20/17 16:00 Urine,Clean Catch Urine Culture - Preliminary Gram Negative Bacillus 1 Resulted Laboratory Tests 03/20/17 16:00: Urine Color Yellow, Urine Appearance Cloudy, Urine pH 6, Urine Specific [place] 1.020, Urine Protein 3+H, Urine Glucose (UA) Negative, Urine Ketones Negative, Urine Occult Blood 4+H, Urine Nitrite PositiveH, Urine Bilirubin 1+H, Urine Ictotest Negative, Urine Urobilinogen 1H, Urine Leukocyte Esterase 3+H, Urine RBC 10-15H, Urine WBC TntcH, Urine Squamous Epithelial Cells ManyH, Urine Bacteria ManyH 03/20/17 17:22: Troponin I 0.000 Current Medications Medications (Trade) Dose Ordered Sig/Shiraz Route PRN Reason Start Time Stop Time Status Last Admin Dose Admin Acetaminophen (Tylenol) 650 mg Q4H PRN ORAL FEVER 03/20/17 17:00 04/19/17 16:59 Albuterol/ Ipratropium (Albuterol/ Ipratropium) 3 ml Q4H PRN HHN Shortness of Breath 03/20/17 17:00 03/25/17 16:59 Aspirin (ASA) 162 mg DAILY ORAL 03/21/17 09:00 04/20/17 08:59 03/21/17 11:21 Diltiazem HCl (Cardizem) 10 mg Q1H PRN IV heart rate more than 120, 03/20/17 17:00 04/19/17 16:59 Diltiazem HCl (Cardizem) 60 mg EVERY 8 HOURS ORAL 03/20/17 22:00 04/19/17 21:59 Enalaprilat (Vasotec) 2.5 mg Q6H PRN IV sbp more than 160 03/20/17 17:00 04/19/17 16:59 Escitalopram Oxalate (Lexapro) 10 mg DAILY ORAL 03/21/17 09:00 04/20/17 08:59 03/21/17 11:21 Heparin Sodium (Porcine) (Heparin 5000 units/ml) 5,000 units EVERY 12 HOURS SUBQ 03/20/17 21:00 04/19/17 20:59 03/20/17 21:44 Hydralazine HCl (Apresoline) 10 mg EVERY 6 HOURS ORAL 03/20/17 18:00 04/19/17 17:59 03/21/17 11:20 Ketorolac Tromethamine (Toradol 30mg) 30 mg Q6H PRN IV moderate pain ( 4-6) 03/20/17 17:00 03/25/17 16:59 Lorazepam (Ativan) 0.5 mg Q6H PRN ORAL For Anxiety 03/20/17 17:00 03/27/17 16:59 Morphine Sulfate (Morphine Sulfate) 2 mg Q4H PRN IVP severe Pain (Pain Scale 7-10) 03/20/17 17:00 03/27/17 16:59 03/21/17 11:30 Nitroglycerin (Ntg) 0.4 mg Every 5 Minutes PRN SL Prn Chest Pain 03/20/17 17:00 04/19/17 16:59 Ondansetron HCl (Zofran) 4 mg Q6H PRN IVP Nausea & Vomiting 03/20/17 17:00 04/19/17 16:59 03/21/17 06:26 Polyethylene Glycol (Miralax) 17 gm DAILYPRN PRN ORAL Constipation 03/20/17 17:00 04/19/17 16:59 Sucralfate (Carafate) 1 gm FOUR TIMES A DAY ORAL 03/20/17 18:00 04/19/17 17:59 03/21/17 11:21 Temazepam (Restoril) 15 mg HSPRN PRN ORAL Insomnia 03/20/17 17:00 03/27/17 16:59 Venlafaxine HCl (Effexor-XR) 37.5 mg DAILY ORAL 03/21/17 09:00 04/20/17 08:59 03/21/17 11:22 RIC GONZALES Mar 21, 2017 13:14
[2017-03-21 16:53] LABS: EOSINOPHILS % (AUTO) 1.2 % (0.0-3.0); MEAN CORPUSCULAR HEMOGLOBIN 24.3 PG (27.0-31.0); MEAN CORPUSCULAR VOLUME 84 FL (80-99); MEAN PLATELET VOLUME 6.2 FL (6.5-10.1); MONOCYTES % (AUTO) 8.4 % (1.0-10.0); NEUTROPHILS % (AUTO) 61.4 % (45.0-75.0); PLATELET COUNT 190 K/UL (150-450); RED BLOOD COUNT 4.79 M/UL (4.20-5.40); WHITE BLOOD COUNT 5.1 K/UL (4.8-10.8)
[2017-03-21 17:02] LABS: PROTHROMBIN TIME 10.3 SEC (9.30-11.50)
[2017-03-21 17:23] LABS: CHOLESTEROL 167 MG/DL (< 200); CRP QUANT 3.4 mg/dL (0.00-0.90); THYROID STIMULATING HORMONE 0.835 uiU/mL (0.358-3.740)
--- NOTE | 2017-03-21 17:38 | Consultation ---
History of Present Illness General Chief Complaint: Chest Pain Present Illness HPI 55 year old female with hx of morbid obesity, DM. COPD, Elephantiasis, presented from senior care with complaints of midsternal chest pain. the pt is refusing meds and is non compliant the pt is only taking morphine and antiemetic meds. during the eval she was initially uncooperative and was reluctant to take meds however after i educated her she agreed to take meds Allergies: Coded Allergies: HALOPERIDOL (Verified Allergy, Unknown, 01/28/09) HALOPERIDOL LACTATE (Unverified Allergy, Unknown, 07/30/16) VANCOMYCIN (Unverified Adverse Reaction, Intermediate, Shortness of Breath , 06/26/13) Medication History Scheduled Diltiazem Hcl* (Cardizem*), 60 MG ORAL EVERY 8 HOURS, (Reported) Docusate Sodium* (Colace*), 100 MG ORAL DAILY, (Reported) Ertapenem (Invanz), 1 GM IM DAILY Escitalopram Oxalate* (Lexapro*), 10 MG ORAL DAILY, (Reported) Hydralazine Hcl* (Hydralazine Hcl*), 10 MG ORAL EVERY 6 HOURS, (Reported) Magnesium Hydroxide* (Milk Of Magnesia*), 30 ML ORAL DAILY, (Reported) Multivitamin With Minerals (Multivitamins With Minerals*), 1 TAB ORAL DAILY, ( Reported) Nitrofurantoin Monohyd/M-Cryst (Nitrofurantoin [place]-Mcr 100 mg), 100 MG ORAL BID , (Reported) Phenazopyridine Hcl* (Pyridium*), 200 MG ORAL THREE TIMES A DAY, (Reported) Sucralfate* (Carafate*), 1 GM ORAL FOUR TIMES A DAY, (Reported) Venlafaxine Hcl* (Effexor Xr*), 37.5 MG ORAL DAILY, (Reported) Scheduled PRN Acetaminophen With Codeine (T#3) (Tylenol #3 Tab*), 1 TAB ORAL Q6H PRN for For Pain, (Reported) Hydrocodone Bit/Acetaminophen 5-325* ([place] 5-325 Tablet*), 1 TAB ORAL Q4H PRN for For Pain, (Reported) Lorazepam* (Ativan*), 0.5 MG ORAL Q6HR PRN for For Anxiety, (Reported) Patient History History Provided By: Patient, Medical Record, PMD Healthcare decision maker N Resuscitation status Full Code Advanced Directive on File Past Medical/Surgical History Past Medical/Surgical History: (1) Change of dressing (2) Lymphedema (3) hypertension uncontrolled (4) tenia corpus (5) Change of dressing (6) hypertension uncontrolled (7) Change of dressing (8) hypertension uncontrolled (9) [place] (10) Open wound of foot (11) Change of dressing (12) [place] (13) hypertension uncontrolled (14) Change of dressing (15) Change of dressing (16) Lymphedema (17) Opiate dependence (18) Change of dressing (19) Lymphedema (20) chronic lymphedema (21) cellulitis (22) Change of dressing (23) Tinea cruris (24) hypertension uncontrolled (25) Opiate dependence (26) Opiate dependence (27) Chronic ulcer of leg (28) Cough (29) Encounter for dressing change or suture removal (30) Encounter for wound re-check (31) Acute chest pain (32) Chronic ulcer of leg (33) Lymphedema (34) Lymphedema (35) Open wound of foot (36) Lymphedema (37) Constipation (38) Onychomycosis (39) Smoker (40) Lymphedema (41) Abdominal pain (42) Acute encephalopathy (43) Sepsis (44) Emesis (45) Anemia (46) Opiate dependence (47) GERD (gastroesophageal reflux disease) (48) Essential hypertension (49) Obesity (50) Chronic ulcer of leg (51) Lymphedema (52) ACS (acute coronary syndrome) Review of Systems Psychiatric: Reports: prior hx, anxiety, depressed feelings, emotional problems Physical Exam General Appearance: no apparent distress, alert, obese Neurologic: alert, oriented x 3, responsive, depressed affect Last 24 Hour Vital Signs Date Time Temp Pulse Resp B/P (MAP) Pulse Ox O2 Delivery O2 Flow Rate FiO2 03/21/17 16:00 76 03/21/17 14:34 92 149/100 03/21/17 12:00 97.9 92 20 149/100 93 03/21/17 12:00 79 03/21/17 11:20 193/115 03/21/17 08:00 82 03/21/17 08:00 97.7 96 20 151/89 97 03/21/17 06:00 150/90 03/21/17 06:00 88 150/90 03/21/17 04:10 88 150/90 03/21/17 04:00 97.7 91 21 159/105 90 Room Air 03/21/17 04:00 88 03/21/17 00:14 150/95 03/21/17 00:00 97.3 75 18 150/95 95 Room Air 03/21/17 00:00 72 03/20/17 22:00 72 150/95 03/20/17 20:10 72 150/95 03/20/17 20:00 65 03/20/17 20:00 97.9 66 20 150/115 91 Room Air 03/20/17 18:09 97.3 Laboratory Tests Test 03/21/17 16:40 White Blood Count 5.1 K/UL (4.8-10.8) Red Blood Count 4.79 M/UL (4.20-5.40) Hemoglobin 11.6 G/DL (12.0-16.0) L Hematocrit 40.1 % (37.0-47.0) Mean Corpuscular Volume 84 FL (80-99) Mean Corpuscular Hemoglobin 24.3 PG (27.0-31.0) L Mean Corpuscular Hemoglobin Concent 29.0 G/DL (32.0-36.0) L Red Cell Distribution Width 15.0 % (11.6-14.8) H Platelet Count 190 K/UL (150-450) Mean Platelet Volume 6.2 FL (6.5-10.1) L Neutrophils (%) (Auto) 61.4 % (45.0-75.0) Lymphocytes (%) (Auto) 28.0 % (20.0-45.0) Monocytes (%) (Auto) 8.4 % (1.0-10.0) Eosinophils (%) (Auto) 1.2 % (0.0-3.0) Basophils (%) (Auto) 1.0 % (0.0-2.0) Prothrombin Time 10.3 SEC (9.30-11.50) Prothromb Time International Ratio 1.0 (0.9-1.1) Activated Partial Thromboplast Time 27 SEC (23-33) Troponin I 0.000 ng/mL (0.000-0.056) C-Reactive Protein, Quantitative Pending Triglycerides Level Pending Cholesterol Level Pending LDL Cholesterol Pending HDL Cholesterol Pending Cholesterol/HDL Ratio Pending Thyroid Stimulating Hormone (TSH) Pending Height (Feet): 5 Height (Inches): 5.00 Weight (Pounds): 350 Medications Current Medications Medications (Trade) Dose Ordered Sig/Shiraz Route PRN Reason Start Time Stop Time Status Last Admin Dose Admin Acetaminophen (Tylenol) 650 mg Q4H PRN ORAL FEVER 03/20/17 17:00 04/19/17 16:59 Albuterol/ Ipratropium (Albuterol/ Ipratropium) 3 ml Q4H PRN HHN Shortness of Breath 03/20/17 17:00 03/25/17 16:59 Aspirin (ASA) 162 mg DAILY ORAL 03/21/17 09:00 04/20/17 08:59 03/21/17 11:21 Diltiazem HCl (Cardizem) 10 mg Q1H PRN IV heart rate more than 120, 03/20/17 17:00 04/19/17 16:59 Diltiazem HCl (Cardizem) 60 mg EVERY 8 HOURS ORAL 03/20/17 22:00 04/19/17 21:59 03/21/17 14:34 Enalaprilat (Vasotec) 2.5 mg Q6H PRN IV sbp more than 160 03/20/17 17:00 04/19/17 16:59 Escitalopram Oxalate (Lexapro) 20 mg DAILY ORAL 03/22/17 09:00 04/21/17 08:59 Heparin Sodium (Porcine) (Heparin 5000 units/ml) 5,000 units EVERY 12 HOURS SUBQ 03/20/17 21:00 04/19/17 20:59 03/20/17 21:44 Hydralazine HCl (Apresoline) 10 mg EVERY 6 HOURS ORAL 03/20/17 18:00 04/19/17 17:59 03/21/17 11:20 Ketorolac Tromethamine (Toradol 30mg) 30 mg Q6H PRN IV moderate pain ( 4-6) 03/20/17 17:00 03/25/17 16:59 Lorazepam (Ativan) 0.5 mg Q6H PRN ORAL For Anxiety 03/20/17 17:00 03/27/17 16:59 Morphine Sulfate (Morphine Sulfate) 2 mg Q4H PRN IVP severe Pain (Pain Scale 7-10) 03/20/17 17:00 03/27/17 16:59 03/21/17 11:30 Nitroglycerin (Ntg) 0.4 mg Every 5 Minutes PRN SL Prn Chest Pain 03/20/17 17:00 04/19/17 16:59 Ondansetron HCl (Zofran) 4 mg Q6H PRN IVP Nausea & Vomiting 03/20/17 17:00 04/19/17 16:59 03/21/17 14:35 Polyethylene Glycol (Miralax) 17 gm DAILYPRN PRN ORAL Constipation 03/20/17 17:00 04/19/17 16:59 Sucralfate (Carafate) 1 gm FOUR TIMES A DAY ORAL 03/20/17 18:00 04/19/17 17:59 03/21/17 11:21 Temazepam (Restoril) 15 mg HSPRN PRN ORAL Insomnia 03/20/17 17:00 03/27/17 16:59 Assessment/Plan Status: stable, progressing Assessment/Plan mdd the pt has poor insight -cont lexapro 20mg -provided dorie/Harris Hector M.D. Mar 21, 2017 17:38
--- NOTE | 2017-03-21 19:10 | Cardiology Progress Note ---
Assessment/Plan Assessment/Plan sx clearly gi in origing exacerbated only with swalloing of solid or liquid consider mariza santiago [id number] Objective Last 24 Hour Vital Signs Date Time Temp Pulse Resp B/P (MAP) Pulse Ox O2 Delivery O2 Flow Rate FiO2 03/21/17 18:00 152/99 03/21/17 16:00 97.5 98 20 152/99 97 03/21/17 16:00 76 03/21/17 14:34 92 149/100 03/21/17 12:00 97.9 92 20 149/100 93 03/21/17 12:00 79 03/21/17 11:20 193/115 03/21/17 08:00 82 03/21/17 08:00 97.7 96 20 151/89 97 03/21/17 06:00 150/90 03/21/17 06:00 88 150/90 03/21/17 04:10 88 150/90 03/21/17 04:00 97.7 91 21 159/105 90 Room Air 03/21/17 04:00 88 03/21/17 00:14 150/95 03/21/17 00:00 97.3 75 18 150/95 95 Room Air 03/21/17 00:00 72 03/20/17 22:00 72 150/95 03/20/17 20:10 72 150/95 03/20/17 20:00 65 03/20/17 20:00 97.9 66 20 150/115 91 Room Air Intake and Output 03/21/17 03/22/17 19:00 07:00 Intake Total 360 ml Output Total 300 ml Balance 60 ml Intake Oral 360 ml Output Urine Total 300 ml # Voids 2 Laboratory Tests Test 03/21/17 16:40 White Blood Count 5.1 K/UL (4.8-10.8) Red Blood Count 4.79 M/UL (4.20-5.40) Hemoglobin 11.6 G/DL (12.0-16.0) L Hematocrit 40.1 % (37.0-47.0) Mean Corpuscular Volume 84 FL (80-99) Mean Corpuscular Hemoglobin 24.3 PG (27.0-31.0) L Mean Corpuscular Hemoglobin Concent 29.0 G/DL (32.0-36.0) L Red Cell Distribution Width 15.0 % (11.6-14.8) H Platelet Count 190 K/UL (150-450) Mean Platelet Volume 6.2 FL (6.5-10.1) L Neutrophils (%) (Auto) 61.4 % (45.0-75.0) Lymphocytes (%) (Auto) 28.0 % (20.0-45.0) Monocytes (%) (Auto) 8.4 % (1.0-10.0) Eosinophils (%) (Auto) 1.2 % (0.0-3.0) Basophils (%) (Auto) 1.0 % (0.0-2.0) Prothrombin Time 10.3 SEC (9.30-11.50) Prothromb Time International Ratio 1.0 (0.9-1.1) Activated Partial Thromboplast Time 27 SEC (23-33) Troponin I 0.000 ng/mL (0.000-0.056) C-Reactive Protein, Quantitative 3.4 mg/dL (0.00-0.90) H Triglycerides Level 79 MG/DL (30-150) Cholesterol Level 167 MG/DL (< 200) LDL Cholesterol 92 mg/dL (<100) HDL Cholesterol 55 MG/DL (40-60) Cholesterol/HDL Ratio 3.0 (3.3-4.4) L Thyroid Stimulating Hormone (TSH) 0.835 uiU/mL (0.358-3.740) Microbiology Date/Time Source Procedure Growth Status 03/20/17 16:00 Urine,Clean Catch Urine Culture - Preliminary Gram Negative Bacillus 1 Resulted SJ BARRERA Mar 21, 2017 19:10
--- NOTE | 2017-03-21 19:25 | Cardiology Report ---
APPROVED REPORT EKG Measurement Heart [id number] Sinus rhythm with 1st degree AV block Possible Left atrial enlargement Inferior infarct, age undetermined Anterior infarct, age undetermined Abnormal ECG
[2017-03-22] VITALS: BP 160/86
[2017-03-22] MEDS: HydrALAZINE 10mg Tab ORAL SCH ×4 (00:29→18:22)
[2017-03-22 04:00] VITALS: BP 154/98
--- NOTE | 2017-03-22 04:00 | Consultation ---
DATE OF CONSULTATION: 03/21/2017 CARDIOLOGY CONSULTATION CONSULTING PHYSICIAN: Param Soto M.D. REFERRING PHYSICIAN: Lilibeth Clarke M.D. REASON FOR REFERRAL: Chest pain. HISTORY OF PRESENT ILLNESS: The patient is a 66-year-old female, who has a history of multiple medical problems. She is a relatively poor historian that presented to the hospital because of nausea and vomiting. She indicates every time she eats or drinks and after few minutes, she gets some pain in the right-sided upper abdomen followed by cough and vomiting. It does not matter whether it is solids or liquids,. Everything she eats causes the same, although she feels better at the moment. She has no shortness of breath, no PND, no orthopnea, no palpitations. She is not very ambulatory. She gets up from the bed to wheelchair, otherwise, does not walk much. PAST MEDICAL HISTORY: Positive for history of chronic obstructive pulmonary disease, diastolic dysfunction, renal failure, morbid obesity, sleep apnea, hypertension, hyperlipidemia, superficial bruising, unsteadiness on feet, sepsis, cellulitis, bronchitis, lymphedema, status post hysterectomy. She had some injuries to her legs. The patient does have history of morbid obesity, dementia, chronic kidney disease stage 3, altered mentation, urinary tract infection, and lymphedema. ALLERGIES: She is reportedly allergic to Haldol. SOCIAL HISTORY: She used to smoke, but this year only one time she smoked. She does not drink alcoholic beverages. She does not use drugs. REVIEW OF SYSTEMS: GASTROINTESTINAL: As mentioned, vomiting after eating and no black or bloody poop. GENITOURINARY: Negative. PULMONARY: Positive coughing. CONSTITUTIONAL: Negative. NEUROLOGIC: Negative. PHYSICAL EXAMINATION: GENERAL: Physical examination shows her to be a morbidly obese elderly female, in no respiratory distress. NECK: Supple. No jugular venous distention. She actually wanted to show me that she has symptoms. She did drink some water, but nothing seemed to happen after that. LUNGS: Appear to be clear to auscultation and percussion. CARDIAC: S1 is normal. S2 is normal. Regular rate and rhythm. There is a faint systolic ejection murmur noted. ABDOMEN: Soft, obese. Positive bowel sounds. Surgical scar in the lower abdomen midline. EXTREMITIES: Shows no edema. NEUROLOGICAL: She is awake, alert, and responsive. LABORATORY AND DIAGNOSTIC DATA: White count of 5.1, hemoglobin of 11.6, and platelet count of 190. Three sets of cardiac enzymes negative. Sodium 145, potassium 3.9, chloride 110, bicarbonate 28, BUN 22, creatinine 0.8, and glucose of 112. Total cholesterol 167 with LDL of 93, HDL of 55. TSH is 0.835. Coagulations, INR 1.0 and PTT 27. Urinalysis shows too numerous to count WBCs, 3+ leukocyte esterase, and positive for nitrites. X-rays of her chest shows cardiomegaly, no acute processes. Electrocardiogram showed normal sinus rhythm, normal QRS axis, some delay in R-wave progression, otherwise normal, and no ST-T wave abnormalities. ASSESSMENT AND PLAN: 1. Chest pain, exacerbated and brought on by swallowing of solids or liquids. 2. Dysphagia, solids and liquids . 3. Hypertension. 4. Morbid obesity. 5. Lymphedema. Dr. Clarke, this patient was seen in cardiac consultation. The patient's signs and symptoms are really in-line with probably GI cause of her symptoms. I doubt that this is ischemic pain. An echocardiogram will be ordered for tomorrow morning. She was already ruled out with three sets of cardiac enzymes despite the fact that she has had this for three weeks and may need GI evaluation if she is agreeable in the future. Praam Soto M.D. DR: DAVE JOB#: [id number] CC:
[2017-03-22] MEDS: Morphine Sulfate 2mg/ml Inj IVP PRN ×4 (05:12→18:34)
[2017-03-22] MEDS: dilTIAZem HCl 60mg tab ORAL SCH ×3 (05:57→23:32)
[2017-03-22 07:50] LABS: BASOPHILS % (AUTO) 0.7 % (0.0-2.0); EOSINOPHILS % (AUTO) 2.9 % (0.0-3.0); LYMPHOCYTES % (AUTO) 30.6 % (20.0-45.0); MEAN CORPUSCULAR HEMOGLOBIN 27.6 PG (27.0-31.0); MEAN CORPUSCULAR HGB CONC 33.1 G/DL (32.0-36.0); MEAN CORPUSCULAR VOLUME 84 FL (80-99); MEAN PLATELET VOLUME 6.4 FL (6.5-10.1); MONOCYTES % (AUTO) 9.5 % (1.0-10.0); NEUTROPHILS % (AUTO) 56.2 % (45.0-75.0); PLATELET COUNT 155 K/UL (150-450); RED BLOOD COUNT 4.38 M/UL (4.20-5.40); RED CELL DISTRIBUTION WIDTH 14.8 % (11.6-14.8); WHITE BLOOD COUNT 4.5 K/UL (4.8-10.8)
[2017-03-22 08:00] VITALS: BP 123/74
--- NOTE | 2017-03-22 08:22 | Consultation ---
History of Present Illness General Date patient seen: Mar 22, 2017 Present Illness Allergies: Coded Allergies: HALOPERIDOL (Verified Allergy, Unknown, 01/28/09) HALOPERIDOL LACTATE (Unverified Allergy, Unknown, 07/30/16) VANCOMYCIN (Unverified Adverse Reaction, Intermediate, Shortness of Breath , 06/26/13) Medication History Scheduled Diltiazem Hcl* (Cardizem*), 60 MG ORAL EVERY 8 HOURS, (Reported) Docusate Sodium* (Colace*), 100 MG ORAL DAILY, (Reported) Ertapenem (Invanz), 1 GM IM DAILY Escitalopram Oxalate* (Lexapro*), 10 MG ORAL DAILY, (Reported) Hydralazine Hcl* (Hydralazine Hcl*), 10 MG ORAL EVERY 6 HOURS, (Reported) Magnesium Hydroxide* (Milk Of Magnesia*), 30 ML ORAL DAILY, (Reported) Multivitamin With Minerals (Multivitamins With Minerals*), 1 TAB ORAL DAILY, ( Reported) Nitrofurantoin Monohyd/M-Cryst (Nitrofurantoin Gonzales-Mcr 100 mg), 100 MG ORAL BID , (Reported) Phenazopyridine Hcl* (Pyridium*), 200 MG ORAL THREE TIMES A DAY, (Reported) Sucralfate* (Carafate*), 1 GM ORAL FOUR TIMES A DAY, (Reported) Venlafaxine Hcl* (Effexor Xr*), 37.5 MG ORAL DAILY, (Reported) Scheduled PRN Acetaminophen With Codeine (T#3) (Tylenol #3 Tab*), 1 TAB ORAL Q6H PRN for For Pain, (Reported) Hydrocodone Bit/Acetaminophen 5-325* ([place] 5-325 Tablet*), 1 TAB ORAL Q4H PRN for For Pain, (Reported) Lorazepam* (Ativan*), 0.5 MG ORAL Q6HR PRN for For Anxiety, (Reported) Patient History Healthcare decision maker N Resuscitation status Full Code Advanced Directive on File Physical Exam Last 24 Hour Vital Signs Date Time Temp Pulse Resp B/P (MAP) Pulse Ox O2 Delivery O2 Flow Rate FiO2 03/22/17 05:57 73 154/98 03/22/17 05:55 154/98 03/22/17 04:00 65 03/22/17 04:00 97.5 73 154/98 Nasal Cannula 03/22/17 04:00 2.0 12/12/17 00:29 160/86 03/22/17 00:00 96.8 64 18 160/86 93 Room Air 03/22/17 00:00 61 03/21/17 21:58 60 149/69 03/21/17 20:00 97.9 60 18 149/69 96 Room Air 03/21/17 20:00 81 03/21/17 18:45 78 20 Room Air 21 03/21/17 18:00 152/99 03/21/17 16:00 97.5 98 20 152/99 97 03/21/17 16:00 76 03/21/17 14:34 92 149/100 03/21/17 12:00 97.9 92 20 149/100 93 03/21/17 12:00 79 03/21/17 11:20 193/115 Laboratory Tests Test 03/21/17 16:40 03/22/17 07:00 White Blood Count 5.1 K/UL (4.8-10.8) 4.5 K/UL (4.8-10.8) L Red Blood Count 4.79 M/UL (4.20-5.40) 4.38 M/UL (4.20-5.40) Hemoglobin 11.6 G/DL (12.0-16.0) L 12.1 G/DL (12.0-16.0) Hematocrit 40.1 % (37.0-47.0) 36.6 % (37.0-47.0) L Mean Corpuscular Volume 84 FL (80-99) 84 FL (80-99) Mean Corpuscular Hemoglobin 24.3 PG (27.0-31.0) L 27.6 PG (27.0-31.0) Mean Corpuscular Hemoglobin Concent 29.0 G/DL (32.0-36.0) L 33.1 G/DL (32.0-36.0) Red Cell Distribution Width 15.0 % (11.6-14.8) H 14.8 % (11.6-14.8) Platelet Count 190 K/UL (150-450) 155 K/UL (150-450) Mean Platelet Volume 6.2 FL (6.5-10.1) L 6.4 FL (6.5-10.1) L Neutrophils (%) (Auto) 61.4 % (45.0-75.0) 56.2 % (45.0-75.0) Lymphocytes (%) (Auto) 28.0 % (20.0-45.0) 30.6 % (20.0-45.0) Monocytes (%) (Auto) 8.4 % (1.0-10.0) 9.5 % (1.0-10.0) Eosinophils (%) (Auto) 1.2 % (0.0-3.0) 2.9 % (0.0-3.0) Basophils (%) (Auto) 1.0 % (0.0-2.0) 0.7 % (0.0-2.0) Prothrombin Time 10.3 SEC (9.30-11.50) Prothromb Time International Ratio 1.0 (0.9-1.1) Activated Partial Thromboplast Time 27 SEC (23-33) Troponin I 0.000 ng/mL (0.000-0.056) Pending C-Reactive Protein, Quantitative 3.4 mg/dL (0.00-0.90) H Triglycerides Level 79 MG/DL (30-150) Cholesterol Level 167 MG/DL (< 200) LDL Cholesterol 92 mg/dL (<100) HDL Cholesterol 55 MG/DL (40-60) Cholesterol/HDL Ratio 3.0 (3.3-4.4) L Thyroid Stimulating Hormone (TSH) 0.835 uiU/mL (0.358-3.740) Sodium Level Pending Potassium Level Pending Chloride Level Pending Carbon Dioxide Level Pending Blood Urea Nitrogen Pending Creatinine Pending Estimat Glomerular Filtration Rate Pending Glucose Level Pending Calcium Level Pending Total Bilirubin Pending Aspartate Amino Transf (AST/SGOT) Pending Alanine Aminotransferase (ALT/SGPT) Pending Alkaline Phosphatase Pending Pro-B-Type Natriuretic Peptide Pending Total Protein Pending Albumin Pending Globulin Pending Height (Feet): 5 Height (Inches): 5.00 Weight (Pounds): 350 Medications Current Medications Medications (Trade) Dose Ordered Sig/Shiraz Route PRN Reason Start Time Stop Time Status Last Admin Dose Admin Acetaminophen (Tylenol) 650 mg Q4H PRN ORAL FEVER 03/20/17 17:00 04/19/17 16:59 Albuterol/ Ipratropium (Albuterol/ Ipratropium) 3 ml Q4H PRN HHN Shortness of Breath 03/20/17 17:00 03/25/17 16:59 Aspirin (ASA) 162 mg DAILY ORAL 03/21/17 09:00 04/20/17 08:59 03/21/17 11:21 Diltiazem HCl (Cardizem) 10 mg Q1H PRN IV heart rate more than 120, 03/20/17 17:00 04/19/17 16:59 Diltiazem HCl (Cardizem) 60 mg EVERY 8 HOURS ORAL 03/20/17 22:00 04/19/17 21:59 03/22/17 05:57 Enalaprilat (Vasotec) 2.5 mg Q6H PRN IV sbp more than 160 03/20/17 17:00 04/19/17 16:59 Escitalopram Oxalate (Lexapro) 20 mg DAILY ORAL 03/22/17 09:00 04/21/17 08:59 Heparin Sodium (Porcine) (Heparin 5000 units/ml) 5,000 units EVERY 12 HOURS SUBQ 03/20/17 21:00 04/19/17 20:59 03/21/17 22:10 Hydralazine HCl (Apresoline) 10 mg EVERY 6 HOURS ORAL 03/20/17 18:00 04/19/17 17:59 03/22/17 05:55 Ketorolac Tromethamine (Toradol 30mg) 30 mg Q6H PRN IV moderate pain ( 4-6) 03/20/17 17:00 03/25/17 16:59 Lorazepam (Ativan) 0.5 mg Q6H PRN ORAL For Anxiety 03/20/17 17:00 03/27/17 16:59 Morphine Sulfate (Morphine Sulfate) 2 mg Q4H PRN IVP severe Pain (Pain Scale 7-10) 03/20/17 17:00 03/27/17 16:59 03/22/17 05:12 Nitroglycerin (Ntg) 0.4 mg Every 5 Minutes PRN SL Prn Chest Pain 03/20/17 17:00 04/19/17 16:59 Ondansetron HCl (Zofran) 4 mg Q6H PRN IVP Nausea & Vomiting 03/20/17 17:00 04/19/17 16:59 03/21/17 22:13 Polyethylene Glycol (Miralax) 17 gm DAILYPRN PRN ORAL Constipation 03/20/17 17:00 04/19/17 16:59 Sucralfate (Carafate) 1 gm FOUR TIMES A DAY ORAL 03/20/17 18:00 04/19/17 17:59 03/21/17 21:58 Temazepam (Restoril) 15 mg HSPRN PRN ORAL Insomnia 03/20/17 17:00 03/27/17 16:59 Assessment/Plan Assessment/Plan (1) Left LE pain (2) Left LE non healing ulcer (3) Morbid obesity Seen Dictated LUZMA MUSA Mar 22, 2017 08:22
[2017-03-22] MEDS ORDERED: Norco 5mg/325mg tab ORAL PRN ×2 (08:30→14:30)
[2017-03-22 08:46] LABS: ALANINE AMINOTRANSFERASE 19 U/L (12-78); ALBUMIN/GLOBULIN RATIO 0.8 (1.0-2.7); ANION GAP 5 mmol/L (5-15); ASPARTATE AMINO TRANSFERASE 12 U/L (15-37); CALCIUM 9.3 MG/DL (8.5-10.1); CARBON DIOXIDE 31 MMOL/L (21-32); CHLORIDE 107 MMOL/L (98-107); CREATININE 0.9 MG/DL (0.55-1.30); GLOMERULAR FILTRATION RATE > 60 mL/min (>60); SODIUM 143 MMOL/L (136-145); TOTAL PROTEIN 7.7 G/DL (6.4-8.2)
[2017-03-22] MEDS: Sucralfate 1gm tab ORAL SCH ×4 (09:40→23:31)
[2017-03-22] MEDS: Aspirin Baby 81mg ORAL SCH (09:42)
[2017-03-22] MEDS: Heparin 5000 units/ml inj SUBQ SCH ×2 (09:45→21:00)
[2017-03-22 12:00] VITALS: BP 138/69
[2017-03-22] MEDS ORDERED: Nitroglycerin Subl 0.4mg tab SL PRN (12:30)
[2017-03-22] MEDS ORDERED: dilTIAZem HCl 25mg/5ml Inj IV PRN (13:00)
[2017-03-22] MEDS ORDERED: Albuterol/Ipratropium 3ml neb HHN PRN (13:00)
--- NOTE | 2017-03-22 15:22 | Consultation ---
Consult Note Consult Note [id number] PINA SALTER M.D. Mar 22, 2017 15:22
[2017-03-22] MEDS ORDERED: dilTIAZem HCl 30mg tab ONE (15:36)
--- NOTE | 2017-03-22 15:45 | Diagnostic Imaging Report ---
Indication: Reason For Exam: DYSPNEA Technique: One view of the chest Comparison: 03/20/2017 Findings: Lungs and pleural spaces are clear. Heart remains enlarged. Aorta is tortuous. Findings are unchanged Impression: Cardiomegaly. No acute process
[2017-03-22 16:00] VITALS: BP 159/77
[2017-03-22 16:06] VITALS: BP 115/71
--- NOTE | 2017-03-22 16:45 | Pulmonology Progress Note ---
Assessment/Plan Problems: (1) Infection due to ESBL-producing Escherichia coli (2) ACS (acute coronary syndrome) (3) Essential hypertension (4) Obesity (5) Chronic ulcer of leg (6) Lymphedema Assessment/Plan ID evaluation continue abx check echo pain management Subjective ROS Limited/Unobtainable: No Constitutional: Reports: no symptoms HEENT: Repors: no symptoms Allergies: Coded Allergies: HALOPERIDOL (Verified Allergy, Unknown, 01/28/09) HALOPERIDOL LACTATE (Unverified Allergy, Unknown, 07/30/16) VANCOMYCIN (Unverified Adverse Reaction, Intermediate, Shortness of Breath , 06/26/13) Objective Last 24 Hour Vital Signs Date Time Temp Pulse Resp B/P (MAP) Pulse Ox O2 Delivery O2 Flow Rate FiO2 03/22/17 16:06 97.4 75 20 115/71 95 03/22/17 16:00 97.3 67 20 159/77 94 03/22/17 15:41 65 138/69 03/22/17 12:00 98.2 65 20 138/69 93 03/22/17 10:04 97.1 03/22/17 09:55 80 20 Room Air 21 03/22/17 09:39 123/74 03/22/17 09:38 74 123/74 03/22/17 08:00 97.1 74 19 123/74 Room Air 03/22/17 05:57 73 154/98 03/22/17 05:55 154/98 03/22/17 04:00 65 03/22/17 04:00 97.5 73 154/98 Nasal Cannula 03/22/17 04:00 2.0 03/22/17 00:29 160/86 03/22/17 00:00 96.8 64 18 160/86 93 Room Air 03/22/17 00:00 61 03/21/17 21:58 60 149/69 03/21/17 20:00 97.9 60 18 149/69 96 Room Air 03/21/17 20:00 81 03/21/17 18:45 78 20 Room Air 21 03/21/17 18:00 152/99 Objective General Appearance: WD/WN HEENT: normocephalic, atraumatic Respiratory/Chest: chest wall non-tender, lungs clear Breasts: no masses Cardiovascular: normal peripheral pulses Abdomen: normal bowel sounds, soft, non tender Genitourinary: normal external genitalia Skin: elephantiasis Microbiology Date/Time Source Procedure Growth Status 03/20/17 16:00 Urine,Clean Catch Urine Culture - Final Escherichia Coli - Esbl Complete Laboratory Tests 03/22/17 07:00: White Blood Count 4.5L, Red Blood Count 4.38, Hemoglobin 12.1, Hematocrit 36.6L , Mean Corpuscular Volume 84, Mean Corpuscular Hemoglobin 27.6, Mean Corpuscular Hemoglobin Concent 33.1, Red Cell Distribution Width 14.8, Platelet Count 155, Mean Platelet Volume 6.4L, Neutrophils (%) (Auto) 56.2, Lymphocytes ( %) (Auto) 30.6, Monocytes (%) (Auto) 9.5, Eosinophils (%) (Auto) 2.9, Basophils (%) (Auto) 0.7, Sodium Level 143, Potassium Level 4.0, Chloride Level 107, Carbon Dioxide Level 31, Anion Gap 5, Blood Urea Nitrogen 29H, Creatinine 0.9, Estimat Glomerular Filtration Rate > 60, Glucose Level 105, Calcium Level 9.3, Total Bilirubin 0.5, Aspartate Amino Transf (AST/SGOT) 12L, Alanine Aminotransferase (ALT/SGPT) 19, Alkaline Phosphatase 96, Troponin I 0.000, Pro-B -Type Natriuretic Peptide 209H, Total Protein 7.7, Albumin 3.5, Globulin 4.2, Albumin/Globulin Ratio 0.8L Current Medications Medications (Trade) Dose Ordered Sig/Shiraz Route PRN Reason Start Time Stop Time Status Last Admin Dose Admin Acetaminophen (Tylenol) 650 mg Q4H PRN ORAL FEVER 03/22/17 13:00 04/19/17 16:59 Acetaminophen/ Hydrocodone Bitart ([place] 5/325) 1 tab Q6H PRN ORAL moderate Pain 4-6 03/22/17 14:30 03/29/17 08:29 Albuterol/ Ipratropium (Albuterol/ Ipratropium) 3 ml Q4H PRN HHN Shortness of Breath 03/22/17 13:00 03/25/17 16:59 Aspirin (ASA) 162 mg DAILY ORAL 03/23/17 09:00 04/20/17 08:59 Diltiazem HCl (Cardizem) 60 mg EVERY 8 HOURS ORAL 03/22/17 14:00 04/19/17 21:59 03/22/17 15:41 Ertapenem 1 gm/ Sodium Chloride 55 ml @ 110 mls/hr Q24H IVPB 03/22/17 17:00 03/27/17 16:59 Escitalopram Oxalate (Lexapro) 20 mg DAILY ORAL 03/23/17 09:00 04/21/17 08:59 Heparin Sodium (Porcine) (Heparin 5000 units/ml) 5,000 units EVERY 12 HOURS SUBQ 03/22/17 21:00 04/19/17 20:59 Hydralazine HCl (Apresoline) 10 mg EVERY 6 HOURS ORAL 03/22/17 18:00 04/19/17 17:59 Lorazepam (Ativan) 0.5 mg Q6H PRN ORAL For Anxiety 03/22/17 17:00 03/27/17 16:59 Morphine Sulfate (Morphine Sulfate) 2 mg Q4H PRN IVP severe Pain (Pain Scale 7-10) 03/22/17 13:34 03/27/17 13:33 03/22/17 14:01 Nitroglycerin (Ntg) 0.4 mg Every 5 Minutes PRN SL Prn Chest Pain 03/22/17 12:30 04/19/17 16:59 Ondansetron HCl (Zofran) 4 mg Q6H PRN IVP Nausea & Vomiting 03/22/17 17:00 04/19/17 16:59 Polyethylene Glycol (Miralax) 17 gm DAILYPRN PRN ORAL Constipation 03/22/17 17:00 04/19/17 16:59 Sucralfate (Carafate) 1 gm FOUR TIMES A DAY ORAL 03/22/17 13:30 04/19/17 13:29 03/22/17 14:00 Temazepam (Restoril) 15 mg HSPRN PRN ORAL Insomnia 03/22/17 17:00 03/27/17 16:59 RIC GONZALES Mar 22, 2017 16:45
[2017-03-22] MEDS ORDERED: LORazepam 0.5mg tab ORAL PRN (17:00)
[2017-03-22] MEDS ORDERED: Miralax 17gm pkt ORAL PRN (17:00)
[2017-03-22] MEDS ORDERED: Enalaprilat 2.5mg/2ml Inj IV PRN (17:00)
--- NOTE | 2017-03-22 17:00 | Consultation ---
DATE OF CONSULTATION: 03/22/2017 PAIN MANAGEMENT CONSULTATION CONSULTING PHYSICIAN: Ronnie Bearden M.D. REFERRING PHYSICIAN: Lilibeth Clarke M.D. PHYSICIAN CRAB STEAMER: Yadira Dia CHIEF COMPLAINT: Left lower extremity pain. HISTORY OF PRESENT ILLNESS: This is a 66-year-old female who is being seen on the telemetry floor of [facility] for initial comprehensive pain management. [facility] due to complaints of chest pain. She has a history of diabetes mellitus, morbid obesity, COPD with left lower extremity nonhealing ulcer. At this time, the patient is on morphine 2 mg IV every 4 hours as needed for pain, which the patient reports has been helping to relieve her pain at this time. We were consulted so that the patient would have adequate pain control while here in the hospital. PAST MEDICAL HISTORY: Morbid obesity, diabetes mellitus, COPD, lymphedema, hypertension, and left lower extremity nonhealing ulcer. SOCIAL HISTORY: History of smoking tobacco. Denies drinking alcohol or IV drug abuse. ALLERGIES: Haldol and vancomycin. MEDICATIONS: Cardizem, Colace, Invanz, Lexapro, hydralazine, milk of magnesia, multivitamin, nitroglycerin, Pyridium, Carafate, Effexor, [place], and Ativan. REVIEW OF SYSTEMS: Denies rash, fever, chills, sweating, dizziness, drowsiness, or change in her weight. No shortness of breath, chest pain, palpitations, or cough. No nausea, vomiting, diarrhea, or blood in the stool or urine. No bowel or bladder incontinence. PHYSICAL EXAMINATION: GENERAL: Alert, awake, and oriented. VITAL SIGNS: Blood pressure 154/98, heart rate 73, oxygen saturation is 92%, respiratory rate is 18, and temperature is 97.8 degrees Fahrenheit. HEENT: PERRLA. NECK: Range of motion is full in all directions. No tenderness to paracervical muscles. No adenopathy. LUNGS: Decreased breath sounds bilaterally. HEART: Regular. ABDOMEN: Obese. BACK: Range of motion is decreased in flexion and extension with tenderness to paraspinal muscles. No tenderness to trapezius and rhomboid muscles. EXTREMITIES: Lower extremity and upper extremity motion is full in all directions. Motor is intact. No cyanosis. No edema. Sensory is intact. Reflexes are not obtainable. Lower extremity range of motion is decreased due to the patient's condition. No cyanosis. No clubbing with edema noted and bandages applied to the left lower extremity. Tenderness to palpation. ASSESSMENT AND PLAN: This is a 66-year-old female with left lower extremity pain, left lower extremity nonhealing ulcer. Morbid obesity. The patient will be continued on morphine 2 mg IV every 4 hours as needed for severe pain and will be started on [place] 5/325 mg one tablet every 6 hours as needed for moderate pain. The patient was discussed with Dr. Bearden and Dr. Bearden concurred. We will follow the patient. Thank you very much for the courtesy of this consultation. Ronnie Bearden M.D. MARVIN Dia DR: LEXY JOB#: [id number] CC: ALEXANDREA
[2017-03-22] MEDS: Ertapenem 1 GM in NS 55 ML IVPB SCH (18:22)
--- NOTE | 2017-03-22 22:31 | Consultation ---
DATE OF CONSULTATION: 03/22/2017 INFECTIOUS DISEASES CONSULTATION CONSULTING PHYSICIAN: Stanley Kay M.D REFERRING PHYSICIAN: Lilibeth Clarke M.D. REASON FOR CONSULTATION: Evaluation of the patient for urinary tract infection. HISTORY OF PRESENT ILLNESS: The patient is a 66-year-old female, overall poor historian who came to the hospital with history of chest pain and also nausea and vomiting. The patient was found to have urinary tract infection. Infectious Diseases consultation was requested for further evaluation of the patient. PAST MEDICAL HISTORY: Significant for, 1. ESBL E. coli urinary tract infection. 2. Chronic lymphedema. 3. Morbid obesity. 4. Anemia. 5. Congestive heart failure. 6. Depression. 7. Chronic obstructive pulmonary disease. MEDICATIONS: Currently off of antibiotics. ALLERGIES: Allergy to vancomycin, lactate, and haloperidol. FAMILY HISTORY: Noncontributory. SOCIAL HISTORY: No history of alcohol or drug abuse. REVIEW OF SYSTEMS: HEENT: No recent change in vision or hearing. PULMONARY: No cough. CARDIOVASCULAR: Chest discomfort. GASTROINTESTINAL: History of nausea and vomiting, but no diarrhea. GENITOURINARY: History of dysuria recently. PHYSICAL EXAMINATION: VITAL SIGNS: Temperature 98, blood pressure 130/69, pulse 63, and respiratory rate 18. HEENT: No pale conjunctivae. No icterus. NECK: No lymphadenopathy. CHEST: Clear. HEART: S1 and S2. ABDOMEN: Soft, obese, and nontender. EXTREMITIES: No cyanosis at this time. GENITOURINARY: Lockett catheter in place. LABORATORY DATA: White blood cell count 4.5, hemoglobin 12, and platelets 155. UA too numerous to count white blood cells and 10 to 15 red blood cells. BUN 29 and creatinine 0.9. LFTs, ALT, AST and alkaline phosphatase are unremarkable. Urine culture is growing ESBL E. coli. ASSESSMENT: 1. The patient is a 66-year-old female with multiple medical problems as listed below, who has, 2. Extended-spectrum beta-lactamase Escherichia coli urinary tract infection (recurrent). 3. Afebrile. 4. Normal white blood cells. 5. Status post nausea and vomiting. PLAN: 1. We will start the patient on Invanz day 04/20. 2. Monitor CBC. 3. Monitor BMP. 4. Ultrasound of the kidneys. 5. We will follow Cardiology recommendations. 6. Based on the patient's clinical status and laboratories, we will do further recommendation. Thank you, Dr. Clarke, for allowing me to participate in the care of this patient. I will follow the patient with you during this hospitalization. Stanley Kay M.D. DR: JUN JOB#: [id number] CC:
--- NOTE | 2017-03-22 22:37 | General Progress Note ---
Assessment/Plan Status: stable, progressing Assessment/Plan psychosis bipolar? -seroquel 100mg qhs dc lexapro Subjective Neurologic/Psychiatric: Reports: anxiety, depressed, emotional problems Allergies: Coded Allergies: HALOPERIDOL (Verified Allergy, Unknown, 01/28/09) HALOPERIDOL LACTATE (Unverified Allergy, Unknown, 07/30/16) VANCOMYCIN (Unverified Adverse Reaction, Intermediate, Shortness of Breath , 06/26/13) Subjective the pt is hostile and unpleasant yelling at staff and is paranoid and delusional Objective Last 24 Hour Vital Signs Date Time Temp Pulse Resp B/P (MAP) Pulse Ox O2 Delivery O2 Flow Rate FiO2 03/22/17 18:22 115/71 03/22/17 16:06 97.4 75 20 115/71 95 03/22/17 16:00 97.3 67 20 159/77 94 03/22/17 15:41 65 138/69 03/22/17 12:00 98.2 65 20 138/69 93 03/22/17 10:04 97.1 03/22/17 09:55 80 20 Room Air 21 03/22/17 09:39 123/74 03/22/17 09:38 74 123/74 03/22/17 08:00 97.1 74 19 123/74 Room Air 03/22/17 05:57 73 154/98 03/22/17 05:55 154/98 03/22/17 04:00 65 03/22/17 04:00 97.5 73 154/98 Nasal Cannula 03/22/17 04:00 2.0 03/22/17 00:29 160/86 03/22/17 00:00 96.8 64 18 160/86 93 Room Air 03/22/17 00:00 61 Intake and Output 03/22/17 03/23/17 19:00 07:00 Intake Total 140 ml Output Total 300 ml Balance -160 ml Intake Oral 140 ml Output Urine Total 300 ml Laboratory Tests 03/22/17 07:00: White Blood Count 4.5L, Red Blood Count 4.38, Hemoglobin 12.1, Hematocrit 36.6L , Mean Corpuscular Volume 84, Mean Corpuscular Hemoglobin 27.6, Mean Corpuscular Hemoglobin Concent 33.1, Red Cell Distribution Width 14.8, Platelet Count 155, Mean Platelet Volume 6.4L, Neutrophils (%) (Auto) 56.2, Lymphocytes ( %) (Auto) 30.6, Monocytes (%) (Auto) 9.5, Eosinophils (%) (Auto) 2.9, Basophils (%) (Auto) 0.7, Sodium Level 143, Potassium Level 4.0, Chloride Level 107, Carbon Dioxide Level 31, Anion Gap 5, Blood Urea Nitrogen 29H, Creatinine 0.9, Estimat Glomerular Filtration Rate > 60, Glucose Level 105, Calcium Level 9.3, Total Bilirubin 0.5, Aspartate Amino Transf (AST/SGOT) 12L, Alanine Aminotransferase (ALT/SGPT) 19, Alkaline Phosphatase 96, Troponin I 0.000, Pro-B -Type Natriuretic Peptide 209H, Total Protein 7.7, Albumin 3.5, Globulin 4.2, Albumin/Globulin Ratio 0.8L Height (Feet): 5 Height (Inches): 5.00 Weight (Pounds): 350 General Appearance: WD/WN, no apparent distress, alert, obese Neurologic: alert, oriented x 3, responsive, depressed affect Harris Ballesteros M.D. Mar 22, 2017 22:37
[2017-03-23] VITALS: BP 150/80
[2017-03-23] MEDS: Morphine Sulfate 2mg/ml Inj IVP PRN ×4 (00:48→15:55)
[2017-03-23 04:00] VITALS: BP 155/99
[2017-03-23] MEDS: HydrALAZINE 10mg Tab ORAL SCH ×4 (06:19→18:15)
[2017-03-23] MEDS: dilTIAZem HCl 60mg tab ORAL SCH ×2 (06:19→13:06)
--- NOTE | 2017-03-23 08:14 | General Progress Note ---
Assessment/Plan Assessment/Plan (1) Left LE pain (2) Left LE non healing ulcer (3) Morbid obesity Pt will be continued on Morphine and [place] D/w Dr. Bearden and he concurred. Subjective Date patient seen: Mar 23, 2017 Time patient seen: 07:00 - am Allergies: Coded Allergies: HALOPERIDOL (Verified Allergy, Unknown, 01/28/09) HALOPERIDOL LACTATE (Unverified Allergy, Unknown, 07/30/16) VANCOMYCIN (Unverified Adverse Reaction, Intermediate, Shortness of Breath , 06/26/13) Subjective REVIEW OF SYSTEMS: Denies rash, fever, chills, sweating, dizziness, drowsiness, or change in her weight. No shortness of breath, chest pain, palpitations, or cough. No nausea, vomiting, diarrhea, or blood in the stool or urine. No bowel or bladder incontinence. SUBJECTIVE: Patient is in bed has no signs of pain or distress. Her pain has been reduced on the medications. Objective Last 24 Hour Vital Signs Date Time Temp Pulse Resp B/P (MAP) Pulse Ox O2 Delivery O2 Flow Rate FiO2 03/23/17 06:19 155/99 03/23/17 06:19 62 155/99 03/23/17 04:00 97.3 62 20 155/99 95 Room Air 03/23/17 00:00 97.0 65 20 150/80 94 Room Air 03/23/17 00:00 150/80 03/22/17 23:32 65 150/80 03/22/17 19:00 85 20 Room Air 21 03/22/17 18:22 115/71 03/22/17 16:06 97.4 75 20 115/71 95 03/22/17 16:00 97.3 67 20 159/77 94 03/22/17 15:41 65 138/69 03/22/17 12:00 98.2 65 20 138/69 93 03/22/17 10:04 97.1 03/22/17 09:55 80 20 Room Air 21 03/22/17 09:39 123/74 03/22/17 09:38 74 123/74 Height (Feet): 5 Height (Inches): 5.00 Weight (Pounds): 350 Objective GENERAL: Alert, awake, and oriented. HEENT: PERRLA. NECK: Range of motion is full in all directions. No tenderness to paracervical muscles. No adenopathy. LUNGS: Decreased breath sounds bilaterally. HEART: Regular. ABDOMEN: Obese. EXTREMITIES: No cyanosis. No edema. NEURO: No changes. LUZMA MUSA Mar 23, 2017 08:14
[2017-03-23 08:44] VITALS: BP 144/74
[2017-03-23] MEDS ORDERED: Aspirin Baby 81mg ORAL SCH (09:00)
--- NOTE | 2017-03-23 09:03 | Infectious Diseases Prog Note ---
Assessment/Plan Assessment/Plan ASSESSMENT: The patient is a 66-year-old female with Extended-spectrum beta-lactamase Escherichia coli UTI (recurrent) dysuria Afebrile. Normal white blood cells. Status post nausea and vomiting. COPD Chronic lymphedema. Morbid obesity. Anemia. Congestive heart failure. Depression. PLAN: Pt on Invanz day 05/21 Monitor CBC Monitor BMP. Ultrasound of the kidneys Cardiology following Subjective Constitutional: Denies: no symptoms, fever, chills, fatigue, anorexia, drenching sweats, other Allergies: Coded Allergies: HALOPERIDOL (Verified Allergy, Unknown, 01/28/09) HALOPERIDOL LACTATE (Unverified Allergy, Unknown, 07/30/16) VANCOMYCIN (Unverified Adverse Reaction, Intermediate, Shortness of Breath , 06/26/13) Objective Vital Signs Last 24 Hour Vital Signs Date Time Temp Pulse Resp B/P (MAP) Pulse Ox O2 Delivery O2 Flow Rate FiO2 03/23/17 08:44 97.9 66 14 144/74 94 Room Air 03/23/17 07:45 74 20 Room Air 03/23/17 06:19 155/99 03/23/17 06:19 62 155/99 03/23/17 04:00 97.3 62 20 155/99 95 Room Air 03/23/17 00:00 97.0 65 20 150/80 94 Room Air 03/23/17 00:00 150/80 03/22/17 23:32 65 150/80 03/22/17 19:00 85 20 Room Air 21 03/22/17 18:22 115/71 03/22/17 16:06 97.4 75 20 115/71 95 03/22/17 16:00 97.3 67 20 159/77 94 03/22/17 15:41 65 138/69 03/22/17 12:00 98.2 65 20 138/69 93 03/22/17 10:04 97.1 03/22/17 09:55 80 20 Room Air 21 03/22/17 09:39 123/74 03/22/17 09:38 74 123/74 Height (Feet): 5 Height (Inches): 5.00 Weight (Pounds): 350 Respiratory/Chest: normal breath sounds Cardiovascular: regular rhythm Microbiology Date/Time Source Procedure Growth Status 03/20/17 16:00 Urine,Clean Catch Urine Culture - Final Escherichia Coli - Esbl Complete Current Medications Medications (Trade) Dose Ordered Sig/Shiraz Route PRN Reason Start Time Stop Time Status Last Admin Dose Admin Acetaminophen (Tylenol) 650 mg Q4H PRN ORAL FEVER 03/22/17 13:00 04/19/17 16:59 Acetaminophen/ Hydrocodone Bitart ([place] 5/325) 1 tab Q6H PRN ORAL moderate Pain 4-6 03/22/17 14:30 03/29/17 08:29 Albuterol/ Ipratropium (Albuterol/ Ipratropium) 3 ml Q4H PRN HHN Shortness of Breath 03/22/17 13:00 03/25/17 16:59 Aspirin (ASA) 162 mg DAILY ORAL 03/23/17 09:00 04/20/17 08:59 Diltiazem HCl (Cardizem) 60 mg EVERY 8 HOURS ORAL 03/22/17 14:00 04/19/17 21:59 03/23/17 06:19 Ertapenem 1 gm/ Sodium Chloride 55 ml @ 110 mls/hr Q24H IVPB 03/22/17 17:00 03/27/17 16:59 03/22/17 18:22 Heparin Sodium (Porcine) (Heparin 5000 units/ml) 5,000 units EVERY 12 HOURS SUBQ 03/22/17 21:00 04/19/17 20:59 Hydralazine HCl (Apresoline) 10 mg EVERY 6 HOURS ORAL 03/22/17 18:00 04/19/17 17:59 03/23/17 06:19 Lorazepam (Ativan) 0.5 mg Q6H PRN ORAL For Anxiety 03/22/17 17:00 03/27/17 16:59 Morphine Sulfate (Morphine Sulfate) 2 mg Q4H PRN IVP severe Pain (Pain Scale 7-10) 03/22/17 13:34 03/27/17 13:33 03/23/17 06:21 Nitroglycerin (Ntg) 0.4 mg Every 5 Minutes PRN SL Prn Chest Pain 03/22/17 12:30 04/19/17 16:59 Ondansetron HCl (Zofran) 4 mg Q6H PRN IVP Nausea & Vomiting 03/22/17 17:00 04/19/17 16:59 Polyethylene Glycol (Miralax) 17 gm DAILYPRN PRN ORAL Constipation 03/22/17 17:00 04/19/17 16:59 Quetiapine Fumarate (SEROquel) 100 mg BEDTIME ORAL 03/23/17 21:00 04/22/17 20:59 Sucralfate (Carafate) 1 gm FOUR TIMES A DAY ORAL 03/22/17 13:30 04/19/17 13:29 03/22/17 23:31 Temazepam (Restoril) 15 mg HSPRN PRN ORAL Insomnia 03/22/17 17:00 03/27/17 16:59 PINA SALTER M.D. Mar 23, 2017 09:03
[2017-03-23] MEDS: Sucralfate 1gm tab ORAL SCH ×3 (10:39→18:15)
[2017-03-23] MEDS: Heparin 5000 units/ml inj SUBQ SCH (10:40)
[2017-03-23 10:51] LABS: BASOPHILS % (AUTO) 1.1 % (0.0-2.0); LYMPHOCYTES % (AUTO) 28.5 % (20.0-45.0); MEAN CORPUSCULAR HEMOGLOBIN 24.5 PG (27.0-31.0); MEAN CORPUSCULAR VOLUME 84 FL (80-99); MEAN PLATELET VOLUME 5.7 FL (6.5-10.1); MONOCYTES % (AUTO) 8.9 % (1.0-10.0); NEUTROPHILS % (AUTO) 58.5 % (45.0-75.0); PLATELET COUNT 179 K/UL (150-450); RED BLOOD COUNT 4.46 M/UL (4.20-5.40); RED CELL DISTRIBUTION WIDTH 14.8 % (11.6-14.8); WHITE BLOOD COUNT 5.5 K/UL (4.8-10.8)
[2017-03-23 11:13] LABS: ALANINE AMINOTRANSFERASE 15 U/L (12-78); ALBUMIN/GLOBULIN RATIO 0.8 (1.0-2.7); ANION GAP 7 mmol/L (5-15); ASPARTATE AMINO TRANSFERASE 10 U/L (15-37); CARBON DIOXIDE 30 MMOL/L (21-32); CHLORIDE 107 MMOL/L (98-107); CREATININE 0.9 MG/DL (0.55-1.30); GLOMERULAR FILTRATION RATE > 60 mL/min (>60); MAGNESIUM 1.8 MG/DL (1.8-2.4); PHOSPHORUS 3.1 MG/DL (2.5-4.9); POTASSIUM 3.7 MMOL/L (3.5-5.1); SODIUM 143 MMOL/L (136-145); TOTAL PROTEIN 7.6 G/DL (6.4-8.2)
[2017-03-23 12:10] VITALS: BP 130/85
[2017-03-23] MEDS ORDERED: INVANZ1 GM IVPB (15:05)
[2017-03-23 16:34] VITALS: BP 152/92
[2017-03-23] MEDS ORDERED: ACETAMINOPHEN325 M1 ORAL (16:45)
[2017-03-23] MEDS ORDERED: ASPIR-LOW81 MG ORAL (16:47)
[2017-03-23] MEDS ORDERED: ALBUTEROL2.5 MG/3 M INH (16:50)
[2017-03-23] MEDS ORDERED: MORPHINE 22 MG/1 ML IV (16:53)
[2017-03-23] MEDS ORDERED: HEPARIN SO5000 UNIT5 IJ (16:56)
[2017-03-23] MEDS ORDERED: NITROGLYCERIN0.4 MG SL (16:58)
[2017-03-23] MEDS ORDERED: ZOFRAN 4 MG4 MG/2 ML IV (16:59)
[2017-03-23] MEDS ORDERED: POLYETHYLENE GL17 GM ORAL (17:00)
[2017-03-23] MEDS ORDERED: QUETIAPINE FUM300 MG ORAL (17:02)
[2017-03-23] MEDS ORDERED: TEMAZEPAM22.5 MG PO (17:04)
[2017-03-23] MEDS: Ertapenem 1 GM in NS 55 ML IVPB SCH (17:18)
--- NOTE | 2017-03-23 17:52 | Pulmonology Progress Note ---
Assessment/Plan Problems: (1) Infection due to ESBL-producing Escherichia coli (2) ACS (acute coronary syndrome) (3) Essential hypertension (4) Obesity (5) Chronic ulcer of leg (6) Lymphedema Assessment/Plan continue abx check echo pain management Subjective ROS Limited/Unobtainable: No Constitutional: Reports: no symptoms HEENT: Repors: no symptoms Respiratory: Reports: no symptoms Allergies: Coded Allergies: HALOPERIDOL (Verified Allergy, Unknown, 01/28/09) HALOPERIDOL LACTATE (Unverified Allergy, Unknown, 07/30/16) VANCOMYCIN (Unverified Adverse Reaction, Intermediate, Shortness of Breath , 06/26/13) Objective Last 24 Hour Vital Signs Date Time Temp Pulse Resp B/P (MAP) Pulse Ox O2 Delivery O2 Flow Rate FiO2 03/23/17 16:34 97.9 68 16 152/92 98 Room Air 03/23/17 13:06 105 130/85 03/23/17 12:10 97.6 105 18 130/85 100 Room Air 03/23/17 11:38 144/74 03/23/17 08:44 97.9 66 14 144/74 94 Room Air 03/23/17 07:45 74 20 Room Air 21 03/23/17 06:19 155/99 03/23/17 06:19 62 155/99 03/23/17 04:00 97.3 62 20 155/99 95 Room Air 03/23/17 00:00 97.0 65 20 150/80 94 Room Air 03/23/17 00:00 150/80 03/22/17 23:32 65 150/80 03/22/17 19:00 85 20 Room Air 21 03/22/17 18:22 115/71 Objective General Appearance: WD/WN HEENT: normocephalic, atraumatic Respiratory/Chest: chest wall non-tender, lungs clear Breasts: no masses Cardiovascular: normal peripheral pulses Abdomen: normal bowel sounds, soft, non tender Genitourinary: normal external genitalia Skin: elephantiasis Laboratory Tests 03/23/17 10:30: White Blood Count 5.5, Red Blood Count 4.46, Hemoglobin 10.9L, Hematocrit 37.7, Mean Corpuscular Volume 84, Mean Corpuscular Hemoglobin 24.5L, Mean Corpuscular Hemoglobin Concent 29.0L, Red Cell Distribution Width 14.8, Platelet Count 179, Mean Platelet Volume 5.7L, Neutrophils (%) (Auto) 58.5, Lymphocytes (%) (Auto) 28.5, Monocytes (%) (Auto) 8.9, Eosinophils (%) (Auto) 3.0, Basophils (%) (Auto ) 1.1, Sodium Level 143, Potassium Level 3.7, Chloride Level 107, Carbon Dioxide Level 30, Anion Gap 7, Blood Urea Nitrogen 25H, Creatinine 0.9, Estimat Glomerular Filtration Rate > 60, Glucose Level 92, Calcium Level 9.0, Phosphorus Level 3.1, Magnesium Level 1.8, Total Bilirubin 0.3, Aspartate Amino Transf (AST/SGOT) 10L, Alanine Aminotransferase (ALT/SGPT) 15, Alkaline Phosphatase 90, Total Protein 7.6, Albumin 3.4, Globulin 4.2, Albumin/Globulin Ratio 0.8L Current Medications Medications (Trade) Dose Ordered Sig/Shiraz Route PRN Reason Start Time Stop Time Status Last Admin Dose Admin Acetaminophen (Tylenol) 650 mg Q4H PRN ORAL FEVER 03/22/17 13:00 04/19/17 16:59 Acetaminophen/ Hydrocodone Bitart ([place] 5/325) 1 tab Q6H PRN ORAL moderate Pain 4-6 03/22/17 14:30 03/29/17 08:29 Albuterol/ Ipratropium (Albuterol/ Ipratropium) 3 ml Q4H PRN HHN Shortness of Breath 03/22/17 13:00 03/25/17 16:59 Aspirin (ASA) 162 mg DAILY ORAL 03/23/17 09:00 04/20/17 08:59 03/23/17 10:39 Diltiazem HCl (Cardizem) 60 mg EVERY 8 HOURS ORAL 03/22/17 14:00 04/19/17 21:59 03/23/17 13:06 Ertapenem 1 gm/ Sodium Chloride 55 ml @ 110 mls/hr Q24H IVPB 03/22/17 17:00 03/27/17 16:59 03/23/17 17:18 Heparin Sodium (Porcine) (Heparin 5000 units/ml) 5,000 units EVERY 12 HOURS SUBQ 03/22/17 21:00 04/19/17 20:59 03/23/17 10:40 Hydralazine HCl (Apresoline) 10 mg EVERY 6 HOURS ORAL 03/22/17 18:00 04/19/17 17:59 03/23/17 11:38 Lorazepam (Ativan) 0.5 mg Q6H PRN ORAL For Anxiety 03/22/17 17:00 03/27/17 16:59 Morphine Sulfate (Morphine Sulfate) 2 mg Q4H PRN IVP severe Pain (Pain Scale 7-10) 03/22/17 13:34 03/27/17 13:33 03/23/17 15:55 Nitroglycerin (Ntg) 0.4 mg Every 5 Minutes PRN SL Prn Chest Pain 03/22/17 12:30 04/19/17 16:59 Ondansetron HCl (Zofran) 4 mg Q6H PRN IVP Nausea & Vomiting 03/22/17 17:00 04/19/17 16:59 Polyethylene Glycol (Miralax) 17 gm DAILYPRN PRN ORAL Constipation 03/22/17 17:00 04/19/17 16:59 Quetiapine Fumarate (SEROquel) 100 mg BEDTIME ORAL 03/23/17 21:00 04/22/17 20:59 Sucralfate (Carafate) 1 gm FOUR TIMES A DAY ORAL 03/22/17 13:30 04/19/17 13:29 03/23/17 12:21 Temazepam (Restoril) 15 mg HSPRN PRN ORAL Insomnia 03/22/17 17:00 03/27/17 16:59 RIC GONZALES Mar 23, 2017 17:52
[2017-03-23 18:15] VITALS: BP 152/92
--- NOTE | 2017-03-23 20:01 | Progress Note ---
DATE: 03/23/2017 SUBJECTIVE: The patient is still irritable, however, less hostile. Non-cooperative. She still has behavior issues and is uncooperative. MENTAL STATUS EXAMINATION: Mood is dysphoric. Affect is constricted. Congruent with mood. Thought process is concrete. Thought content, no suicidal or homicidal ideations. ASSESSMENT: 1. Mood disorder. 2. Depression. 3. Cognitive impairment. PLAN: 1. We will continue the patient on Depakote. 2. We will continue to follow and provide the patient with supportive therapy and reality orientation. Harris Ballesteros M.D. DR: ARLETTE JOB#: [id number] CC:
--- NOTE | 2017-03-24 17:06 | Discharge Summary ---
Discharge Summary Hospital Course Date of Admission Mar 20, 2017 at 16:28 Date of Discharge Mar 23, 2017 at 20:23 Admitting Diagnosis Acute Coronary Syndrome HPI Charisse Couch is a 66 year old female who was admitted on Mar 20, 2017 at 16:28 for Acute Coronary Syndrome Hospital Course [id number] Discharge Discharge Disposition Patient was discharged to [facility] Discharge Diagnoses: Jluee Gonzalez NP Mar 24, 2017 17:06
--- NOTE | 2017-03-25 06:30 | Discharge Summary 2 SIG ---
DATE OF ADMISSION: 03/20/2017 DATE OF DISCHARGE: 03/23/2017 CONSULTANTS: 1. Harris Ballesteros M.D. 2. Stanley Kay M.D. 3. Ronnie Bearden M.D. 4. Param Soto M.D. BRIEF HOSPITAL COURSE: The patient is a 66-year-old female with history of morbid obesity, diabetes mellitus, COPD, and elephantiasis, [facility] complaints of midsternal chest pain and heaviness. On evaluation at ED, blood pressure was elevated to 170/108. She was given aspirin. Initial troponin was negative. EKG was in normal sinus rhythm with no acute changes. She had a chest x-ray done that showed no consolidation, no effusion, and no pneumothorax. Due to her risk factors, she was admitted to telemetry for evaluation of acute coronary syndrome. She underwent cardiac evaluation. The patient is a poor historian and indicated she gets right-sided upper abdominal pain every time she eats or drinks. Her cardiac enzymes were negative and EKG was in normal sinus rhythm with normal QRS axis and delayed R-wave progression. There were no ST to T-wave abnormalities. Chest pain was exacerbated by swallowing of solids or liquids. Chest pain was secondary to dysphagia. Cardiac troponins were negative. Urine culture showed growth of E. coli ESBL. She was started on Invanz. She underwent psychiatric evaluation as she was initially uncooperative and reluctant to take medications. She was diagnosed with major depressive disorder and has poor insight on her condition. She was continued on Lexapro 20 mg daily. She complained of pain on the left leg and was given morphine and [place]. She was eventually downgraded to medical floor and was subsequently [facility] to continue Invanz 1 g IV daily for eight more days, end of treatment 03/31/2017. FINAL DIAGNOSES: 1. Escherichia coli urinary tract infection. 2. Morbid obesity. 3. Lymphedema. 4. Chronic leg ulcer. 5. Chest pain due to dysphagia. 6. Chronic obstructive pulmonary disease. 7. Anemia. 8. Depression. 9. Left lower extremity pain. 10. Hypertension. DISPOSITION: The patient was discharged to [facility]. DISCHARGE MEDICATIONS: Refer to medication list. Continue with IV antibiotic x8 more days. Lilibeth Clarke M.D. I have been assigned to dictate discharge summary on this account and I was not involved in the patient's management. Julee Gonzalez N.P. DR: [place] JOB#: [id number] CC:
== END 2017-03-23 20:23 | DRG 254 ==
LOC: EDBD 11:47 → EDBEDREQ 12:09 → EMR 12:30 → EDBEDREQ 16:12 → 2E 16:28 → 4E 03-22 11:52
DX: R13.10 Dysphagia, unspecified (principal); L97.929 Non-pressure chronic ulcer of unspecified part of left lower leg with unspecified severity; I10 Essential (primary) hypertension; Z68.43 Body mass index [BMI] 50.0-59.9, adult; E66.01 Morbid (severe) obesity due to excess calories; I89.0 Lymphedema, not elsewhere classified; Z88.1 Allergy status to other antibiotic agents; Z88.8 Allergy status to other drugs, medicaments and biological substances; N39.0 Urinary tract infection, site not specified; B96.20 Unspecified Escherichia coli [E. coli] as the cause of diseases classified elsewhere; Z16.12 Extended spectrum beta lactamase (ESBL) resistance; J44.9 Chronic obstructive pulmonary disease, unspecified; D64.9 Anemia, unspecified; F32.9 Major depressive disorder, single episode, unspecified; M79.605 Pain in left leg; Z91.14 Patient's other noncompliance with medication regimen; Z87.891 Personal history of nicotine dependence
CPT/HCPCS: 36415; 71010; 80053; 80061; 81003; 82550; 82553; 83690; 83735; 83880; 84100; 84443; 84484; 85025; 85610; 85730; 86140; 87086; 87181; 93005; 94664; 99285; J2405

== ENCOUNTER 2017-04-13 10:49 | Inpatient (IN) | payer SELFPAY ==
[~2017-04-13] VITALS: Ht 167.6 cm; Wt 115.7 kg
[~2017-04-13 10:49] MED LIST changes: +ACETAMINOPHEN325 M1 ORAL; +ALBUTEROL2.5 MG/3 M INH; +ASPIR-LOW81 MG ORAL; +ATIVAN0.5 MG ORAL; +EFFEXOR XR37.5 MG ORAL; +HEPARIN SO5000 UNIT5 IJ; +INVANZ1 GM IVPB; +MACROBID100 MG ORAL; +MORPHINE 22 MG/1 ML IV; +MULTIVITAMINS1 EAC8 ORAL; +NITROGLYCERIN0.4 MG SL; +NORCO 5-325 TA1 EAC1 ORAL; +PHENAZOPYRIDIN200 MG ORAL; +POLYETHYLENE GL17 GM ORAL; +QUETIAPINE FUM300 MG ORAL; +TEMAZEPAM22.5 MG PO; +ZOFRAN 4 MG4 MG/2 ML IV
[2017-04-13 13:18] LABS: BASOPHILS % (AUTO) 1.2 % (0.0-2.0); EOSINOPHILS % (AUTO) 1.7 % (0.0-3.0); HEMATOCRIT 43.3 % (37.0-47.0); HEMOGLOBIN 13.5 G/DL (12.0-16.0); LYMPHOCYTES % (AUTO) 29.4 % (20.0-45.0); MEAN CORPUSCULAR VOLUME 83 FL (80-99); MONOCYTES % (AUTO) 9.2 % (1.0-10.0); NEUTROPHILS % (AUTO) 58.6 % (45.0-75.0); PLATELET COUNT 181 K/UL (150-450); RED BLOOD COUNT 5.22 M/UL (4.20-5.40); RED CELL DISTRIBUTION WIDTH 14.6 % (11.6-14.8)
[2017-04-13 13:23] LABS: ANION GAP 7 mmol/L (5-15); BLOOD UREA NITROGEN 25 mg/dL (7-18); CALCIUM 8.7 MG/DL (8.5-10.1); CARBON DIOXIDE 31 MMOL/L (21-32); CHLORIDE 107 MMOL/L (98-107); POTASSIUM 4.3 MMOL/L (3.5-5.1); SODIUM 145 MMOL/L (136-145)
[2017-04-13 13:27] LABS: ALANINE AMINOTRANSFERASE 23 U/L (12-78); ALBUMIN/GLOBULIN RATIO 0.9 (1.0-2.7); ALKALINE PHOSPHATASE 112 U/L (46-116); ASPARTATE AMINO TRANSFERASE 20 U/L (15-37); BILIRUBIN,TOTAL 0.5 MG/DL (0.2-1.0)
[2017-04-13] MEDS ORDERED: Ketorolac 60mg Inj IM ONE (13:30)
[2017-04-13] MEDS ORDERED: Norco 5mg/325mg tab ORAL ONE (14:00)
[2017-04-13] MEDS ORDERED: Lidocaine 1% 10mg/ml/Epi 0.005mg/ml 30ml vial INJ ONE (14:30)
[2017-04-13] MEDS ORDERED: Heparin 2000 units/Ns 1000ml IV ONE (14:30)
[2017-04-13 15:03] VITALS: BP 160/96
[2017-04-13] MEDS ORDERED: LORazepam Inj 2mg/ml 1ml IV PRN (15:45)
[2017-04-13] MEDS ORDERED: Nitroglycerin Subl 0.4mg tab SL PRN (15:45)
[2017-04-13] MEDS ORDERED: Mylanta II UD 30ml ORAL PRN (15:45)
--- NOTE | 2017-04-13 15:55 | Diagnostic Imaging Report ---
Indications: Needs long-term IV access Technique: Procedure performed at bedside. Procedural timeout performed. Ultrasound confirms patent compressible left basilic vein. Total sterile technique, including sterile probe cover and sterile gel, sterile gloves, hand hygiene, hat, mask,, sterile gown, large sterile drape, and preparation with 2% chlorhexidine utilized. Local anesthesia with 1% lidocaine. Under real-time ultrasound guidance, puncture basilic vein using 21-gauge needle, passage 0.018 guidewire, exchange for 5 Lithuanian peel-away sheath. 5 [place] Bard dual-lumen power PICC cut to 44 cm. It was inserted through the peel-away sheath. Peel-away sheath and guidewire removed. Catheter fixed to the skin. Both catheter ports aspirated and flushed. Patient tolerated procedure well, without immediate complication. Followup chest x-ray obtained, documents catheter tip position at the upstream orifice of the superior vena cava Impression: Successful bedside placement of left arm PICC under sonographic guidance, as described above.
--- NOTE | 2017-04-13 16:12 | Emergency Room Report ---
History of Present Illness General Chief Complaint: Nausea Source: Patient Present Illness HPI This patient presents from a [facility] facility. She presents for vomiting. She states that she has had 3 days of vomiting. However, the nursing facility reports 3 episodes of vomiting today. She also complains of allover body pain. She denies chest pain or shortness of breath. There are no other complaints. She does have a history of recurrent UTI with ESBL. Allergies: Coded Allergies: HALOPERIDOL (Verified Allergy, Unknown, 01/28/09) HALOPERIDOL LACTATE (Unverified Allergy, Unknown, 07/30/16) VANCOMYCIN (Unverified Adverse Reaction, Intermediate, Shortness of Breath , 06/26/13) Patient History Past Medical History: see triage record, HTN, AR, CAD, COPD, dementia Social History: Denies: smoking, alcohol use, drug use Reviewed Nursing Documentation: PMH: Agreed, PSxH: Agreed Nursing Documentation-PMH Hx Cardiac Problems: Yes Hx Hypertension: Yes Hx Asthma: No Hx COPD: Yes - Lymphedema Hx Cancer: No Hx Gastrointestinal Problems: Yes - gerd Hx Dialysis: No Hx Neurological Problems: Yes - anxiety disorder,lymphedema Hx Cerebrovascular Accident: No Hx Seizures: No Hx Weakness: Yes Review of Systems All Other Systems: negative except mentioned in HPI Physical Exam Vital Signs Date Time Temp Pulse Resp B/P (MAP) Pulse Ox O2 Delivery O2 Flow Rate FiO2 04/13/17 10:59 97.3 70 16 164/100 Room Air 04/13/17 15:03 7 Sp02 EP Interpretation: reviewed, normal General Appearance: no apparent distress, alert, GCS 15, non-toxic, obese, other - Multiple episodes of vomiting. Head: normocephalic, atraumatic Eyes: bilateral eye normal inspection, bilateral eye PERRL ENT: hearing grossly normal, normal pharynx, no angioedema, normal voice Neck: full range of motion, supple/symm/no masses Respiratory: chest non-tender, lungs clear, normal breath sounds, speaking full sentences Cardiovascular #1: regular rate, rhythm, no edema Gastrointestinal: normal bowel sounds, non tender, soft, non-distended, no guarding, no rebound Rectal: deferred Musculoskeletal: back normal, normal range of motion, non-tender Neurologic: alert, oriented x3, responsive, motor strength/tone normal, sensory intact, speech normal Psychiatric: judgement/insight normal, memory normal, mood/affect normal, no suicidal/homicidal ideation Skin: normal color, no rash, warm/dry, well hydrated Medical Decision Making Diagnostic Impression: Primary Impression: Nausea and vomiting in adult patient ER Course This patient presents with recurrent vomiting. She was a very difficult IV stick. She has had PIC lines in the past. She was very demanding and requesting narcotics. She did have multiple episodes of vomiting here in the emergency department. I had planned on doing an EJ however the patient adamantly declined. She did end up getting a PICC line. Patient has multiple chronic illnesses. She is admitted for further evaluation and treatment and intractable vomiting. Laboratory Tests Test 04/13/17 12:45 White Blood Count 5.0 K/UL (4.8-10.8) Red Blood Count 5.22 M/UL (4.20-5.40) Hemoglobin 13.5 G/DL (12.0-16.0) Hematocrit 43.3 % (37.0-47.0) Mean Corpuscular Volume 83 FL (80-99) Mean Corpuscular Hemoglobin 25.9 PG (27.0-31.0) L Mean Corpuscular Hemoglobin Concent 31.2 G/DL (32.0-36.0) L Red Cell Distribution Width 14.6 % (11.6-14.8) Platelet Count 181 K/UL (150-450) Mean Platelet Volume 7.1 FL (6.5-10.1) Neutrophils (%) (Auto) 58.6 % (45.0-75.0) Lymphocytes (%) (Auto) 29.4 % (20.0-45.0) Monocytes (%) (Auto) 9.2 % (1.0-10.0) Eosinophils (%) (Auto) 1.7 % (0.0-3.0) Basophils (%) (Auto) 1.2 % (0.0-2.0) Sodium Level 145 MMOL/L (136-145) Potassium Level 4.3 MMOL/L (3.5-5.1) Chloride Level 107 MMOL/L (98-107) Carbon Dioxide Level 31 MMOL/L (21-32) Anion Gap 7 mmol/L (5-15) Blood Urea Nitrogen 25 mg/dL (7-18) H Creatinine 1.0 MG/DL (0.55-1.30) Estimate Glomerular Filtration Rate 55.8 mL/min (>60) Glucose Level 106 MG/DL (74-106) Calcium Level 8.7 MG/DL (8.5-10.1) Total Bilirubin 0.5 MG/DL (0.2-1.0) Aspartate Amino Transferase (AST) 20 U/L (15-37) Alanine Aminotransferase (ALT) 23 U/L (12-78) Alkaline Phosphatase 112 U/L (46-116) Total Protein 8.6 G/DL (6.4-8.2) H Albumin 4.0 G/DL (3.4-5.0) Globulin 4.6 g/dL Albumin/Globulin Ratio 0.9 (1.0-2.7) L Lipase 97 U/L (73-393) EKG Diagnostic Results Rate: normal Rhythm: NSR ST Segments: no acute changes Rhythm Strip Diag. Results EP Interpretation: yes Rate: 70's Rhythm: NSR, no PVC's, no ectopy Last Vital Signs Date Time Temp Pulse Resp B/P (MAP) Pulse Ox O2 Delivery O2 Flow Rate FiO2 04/13/17 15:03 97.5 80 16 160/96 7 Room Air Disposition: ADMITTED INPATIENT Condition: Stable Referrals: NON PHYSICIAN (PCP) BRYAN HAY D.O. Apr 13, 2017 16:12
[2017-04-13 18:15] VITALS: BP 155/90
[2017-04-13 18:55] VITALS: BP 151/75
--- NOTE | 2017-04-13 19:19 | History and Physical ---
History of Present Illness General Date patient seen: Apr 13, 2017 Reason for Hospitalization: Nausea Present Illness HPI 66 year old female with PMHx of morbid obesity, elephantisis, from detention facility presented for vomiting. She states that she has had 3 days of vomiting. She also complains of allover body pain. She denies chest pain or shortness of breath. There are no other complaints. She does have a history of recurrent UTI with ESBL. Allergies: Coded Allergies: HALOPERIDOL (Verified Allergy, Unknown, 01/28/09) HALOPERIDOL LACTATE (Unverified Allergy, Unknown, 07/30/16) VANCOMYCIN (Unverified Adverse Reaction, Intermediate, Shortness of Breath , 06/26/13) Medication History Scheduled Aspirin* (Aspir-Low*), 81 MG ORAL DAILY, (Reported) Diltiazem Hcl* (Cardizem*), 60 MG ORAL EVERY 8 HOURS, (Reported) Docusate Sodium* (Colace*), 100 MG ORAL DAILY, (Reported) Ertapenem (Invanz), 1 GM IM DAILY Ertapenem Sodium* (INVanz*), 1 GM IVPB Q24H, (Reported) Escitalopram Oxalate* (Lexapro*), 10 MG ORAL DAILY, (Reported) Heparin Sodium,Porcine (Heparin Sodium), 5,000 UNIT IJ Q12HR, (Reported) Hydralazine Hcl* (Hydralazine Hcl*), 10 MG ORAL EVERY 6 HOURS, (Reported) Magnesium Hydroxide* (Milk Of Magnesia*), 30 ML ORAL DAILY, (Reported) Multivitamin With Minerals (Multivitamins With Minerals*), 1 TAB ORAL DAILY, ( Reported) Nitrofurantoin Monohyd/M-Cryst (Nitrofurantoin [place]-Mcr 100 mg), 100 MG ORAL BID , (Reported) Nitroglycerin (Nitroglycerin), 0.4 MG SL every 5 minutes, (Reported) Phenazopyridine Hcl* (Pyridium*), 200 MG ORAL THREE TIMES A DAY, (Reported) Polyethylene Glycol 3350* (Polyethylene Glycol 3350*), 17 GM ORAL DAILY, ( Reported) Quetiapine Fumarate (Quetiapine Fumarate), 100 MG ORAL BEDTIME, (Reported) Sucralfate* (Carafate*), 1 GM ORAL FOUR TIMES A DAY, (Reported) Venlafaxine Hcl* (Effexor Xr*), 37.5 MG ORAL DAILY, (Reported) Scheduled PRN Acetaminophen With Codeine (T#3) (Tylenol #3 Tab*), 1 TAB ORAL Q6H PRN for For Pain, (Reported) Acetaminophen* (Acetaminophen 325MG Tablet*), 325 MG ORAL Q4H PRN for Mild Pain/ Temp > 100.5, (Reported) Albuterol Sulfate* (Albuterol Sulfate Hhn*), 3 ML INH Q4H PRN for Shortness of Breath, (Reported) Hydrocodone Bit/Acetaminophen 5-325* ([place] 5-325 Tablet*), 1 TAB ORAL Q4H PRN for For Pain, (Reported) Lorazepam* (Ativan*), 0.5 MG ORAL Q6HR PRN for For Anxiety, (Reported) Morphine Sulfate* (Morphine Sulfate*), 2 MG IV Q4HR PRN for prn, (Reported) Ondansetron* (Zofran*), 4 MG IV Q6H PRN for Nausea & Vomiting, (Reported) Temazepam (Temazepam), 15 MG PO for insomnia, (Reported) Patient History Healthcare decision maker Resuscitation status Advanced Directive on File Past Medical/Surgical History Past Medical/Surgical History: (1) Obesity (2) Chronic ulcer of leg (3) chronic lymphedema (4) Infection due to ESBL-producing Escherichia coli (5) Opiate dependence Review of Systems Gastrointestinal: Reports: nausea, vomiting Physical Exam Physical Exam Narrative General Appearance: cachetic Lines, tubes and drains: peripheral HEENT: normocephalic, atraumatic Neck: non-tender, normal alignment Respiratory/Chest: chest wall non-tender, lungs clear Breasts: no masses Cardiovascular/Chest: normal peripheral pulses, normal rate Abdomen: non tender Genitourinary/Rectal: normal genital exam Extremities: normal range of motion, massive edema Skin Exam: normal pigmentation 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 II-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 grossly normal Last 24 Hour Vital Signs Date Time Temp Pulse Resp B/P (MAP) Pulse Ox O2 Delivery O2 Flow Rate FiO2 04/13/17 18:55 97.4 60 20 151/75 94 Room Air 04/13/17 18:15 97.5 78 16 155/90 7 Room Air 04/13/17 15:03 97.5 80 16 160/96 7 Room Air 04/13/17 10:59 97.3 70 16 164/100 Room Air Laboratory Tests Test 04/13/17 12:45 White Blood Count 5.0 K/UL (4.8-10.8) Red Blood Count 5.22 M/UL (4.20-5.40) Hemoglobin 13.5 G/DL (12.0-16.0) Hematocrit 43.3 % (37.0-47.0) Mean Corpuscular Volume 83 FL (80-99) Mean Corpuscular Hemoglobin 25.9 PG (27.0-31.0) L Mean Corpuscular Hemoglobin Concent 31.2 G/DL (32.0-36.0) L Red Cell Distribution Width 14.6 % (11.6-14.8) Platelet Count 181 K/UL (150-450) Mean Platelet Volume 7.1 FL (6.5-10.1) Neutrophils (%) (Auto) 58.6 % (45.0-75.0) Lymphocytes (%) (Auto) 29.4 % (20.0-45.0) Monocytes (%) (Auto) 9.2 % (1.0-10.0) Eosinophils (%) (Auto) 1.7 % (0.0-3.0) Basophils (%) (Auto) 1.2 % (0.0-2.0) Sodium Level 145 MMOL/L (136-145) Potassium Level 4.3 MMOL/L (3.5-5.1) Chloride Level 107 MMOL/L (98-107) Carbon Dioxide Level 31 MMOL/L (21-32) Anion Gap 7 mmol/L (5-15) Blood Urea Nitrogen 25 mg/dL (7-18) H Creatinine 1.0 MG/DL (0.55-1.30) Estimat Glomerular Filtration Rate 55.8 mL/min (>60) Glucose Level 106 MG/DL (74-106) Calcium Level 8.7 MG/DL (8.5-10.1) Total Bilirubin 0.5 MG/DL (0.2-1.0) Aspartate Amino Transf (AST/SGOT) 20 U/L (15-37) Alanine Aminotransferase (ALT/SGPT) 23 U/L (12-78) Alkaline Phosphatase 112 U/L (46-116) Total Protein 8.6 G/DL (6.4-8.2) H Albumin 4.0 G/DL (3.4-5.0) Globulin 4.6 g/dL Albumin/Globulin Ratio 0.9 (1.0-2.7) L Lipase 97 U/L (73-393) Height (Feet): 5 Height (Inches): 6.00 Weight (Pounds): 255 Medications Current Medications Medications (Trade) Dose Ordered Sig/Shiraz Route PRN Reason Start Time Stop Time Status Last Admin Dose Admin Acetaminophen (Tylenol) 650 mg Q4H PRN ORAL T>100.5 04/13/17 15:45 05/13/17 15:44 Al Hydroxide/Mg Hydroxide (Mylanta II) 30 ml Q6H PRN ORAL dyspepsia 04/13/17 15:45 05/13/17 15:44 Aspirin (Ecotrin) 81 mg DAILY ORAL 04/14/17 09:00 05/14/17 08:59 Dextrose (Dextrose 50%) STAT PRN IV Hypoglycemia 04/13/17 15:45 05/13/17 15:44 Dextrose/Sodium Chloride 1,000 ml @ 75 mls/hr [id number] IV 04/13/17 16:00 05/13/17 15:59 Diltiazem HCl (Cardizem) 60 mg EVERY 8 HOURS ORAL 04/13/17 22:00 05/13/17 21:59 Diphenhydramine HCl (Benadryl) 25 mg Q6H PRN ORAL Itching/Pruritis 04/13/17 15:45 05/13/17 15:44 Escitalopram Oxalate (Lexapro) 10 mg DAILY ORAL 04/14/17 09:00 05/14/17 08:59 Heparin Sodium (Porcine) (Heparin 5000 units/ml) 5,000 units EVERY 12 HOURS SUBQ 04/13/17 21:00 05/13/17 20:59 Hydralazine HCl (Apresoline) 10 mg EVERY 6 HOURS ORAL 04/13/17 18:00 05/13/17 17:59 Lorazepam (Ativan 2mg/ml 1ml) 1 mg Q4H PRN IV agitation 04/13/17 15:45 04/20/17 15:44 Morphine Sulfate (Morphine Sulfate) 2 mg Q4H PRN IVP Severe Pain (Pain Scale 7-10) 04/13/17 15:45 04/20/17 15:44 Nitroglycerin (Ntg) 0.4 mg Q5M X 3 DOSES PRN SL Prn Chest Pain 04/13/17 15:45 05/13/17 15:44 Ondansetron HCl (Zofran) 4 mg Q6H PRN IVP Nausea & Vomiting 04/13/17 16:00 05/13/17 15:59 Pantoprazole (Protonix) 40 mg DAILY IV 04/14/17 09:00 05/14/17 08:59 Polyethylene Glycol (Miralax) 17 gm HSPRN PRN ORAL Constipation 04/13/17 21:00 05/13/17 20:59 Promethazine HCl (Phenergan) 25 mg Q8H PRN IV refractory nausea 04/13/17 15:45 05/13/17 15:44 Temazepam (Restoril) 15 mg HSPRN PRN ORAL Insomnia 04/13/17 21:00 04/20/17 20:59 Venlafaxine HCl (Effexor-XR) 37.5 mg DAILY ORAL 04/14/17 09:00 05/14/17 08:59 Assessment/Plan Problem List: (1) Abdominal pain ICD Codes: R10.9 - Abdominal pain SNOMED: 55643007 (2) Intractable nausea and vomiting ICD Codes: R11.2 - Nausea with vomiting, unspecified SNOMED: 450930055 (3) chronic lymphedema (4) Infection due to ESBL-producing Escherichia coli ICD Codes: A49.8 - Other bacterial infections of unspecified site; Z16.12 - Extended spectrum beta lactamase (ESBL) resistance SNOMED: 897907581 (5) Chronic ulcer of leg ICD Codes: L97.909 - Non-prs chronic ulc unsp prt of unsp low leg w unsp severity SNOMED: 30770614 (6) Obesity ICD Codes: E66.9 - Obesity, unspecified SNOMED: 523280278 Assessment/Plan npo iv fluids GI evaluation dvt prophylaxis RIC GONZALES Apr 13, 2017 19:19
[2017-04-13] MEDS: dilTIAZem HCl 60mg tab ORAL SCH (20:50)
[2017-04-13] MEDS: Heparin 5000 units/ml inj SUBQ SCH (20:55)
[2017-04-13] MEDS: Morphine Sulfate 2mg/ml Inj IVP PRN (20:56)
[2017-04-13] MEDS ORDERED: Miralax 17gm pkt ORAL PRN (21:00)
[2017-04-14] VITALS (7 sets, daily range): BP systolic 143–183; BP diastolic 75–103
[2017-04-14] MEDS: D5 1/2NS 1,000 ML IV SCH ×3 (01:57→15:02)
[2017-04-14] MEDS: HydrALAZINE 10mg Tab ORAL SCH ×5 (01:57→17:08)
[2017-04-14] MEDS: Morphine Sulfate 2mg/ml Inj IVP PRN ×5 (02:27→22:20)
[2017-04-14 07:44] LABS: EOSINOPHILS % (AUTO) 2.9 % (0.0-3.0); HEMATOCRIT 39.9 % (37.0-47.0); HEMOGLOBIN 12.1 G/DL (12.0-16.0); LYMPHOCYTES % (AUTO) 28.6 % (20.0-45.0); MEAN CORPUSCULAR VOLUME 84 FL (80-99); MONOCYTES % (AUTO) 9.6 % (1.0-10.0); NEUTROPHILS % (AUTO) 57.9 % (45.0-75.0); PLATELET COUNT 158 K/UL (150-450); RED BLOOD COUNT 4.73 M/UL (4.20-5.40); RED CELL DISTRIBUTION WIDTH 14.3 % (11.6-14.8); WHITE BLOOD COUNT 4.4 K/UL (4.8-10.8)
[2017-04-14 08:20] LABS: ALANINE AMINOTRANSFERASE 19 U/L (12-78); ALBUMIN 3.5 G/DL (3.4-5.0); ALBUMIN/GLOBULIN RATIO 0.9 (1.0-2.7); ALKALINE PHOSPHATASE 95 U/L (46-116); AMYLASE 37 U/L (25-115); ANION GAP 8 mmol/L (5-15); ASPARTATE AMINO TRANSFERASE 16 U/L (15-37); BILIRUBIN,TOTAL 0.4 MG/DL (0.2-1.0); BLOOD UREA NITROGEN 29 mg/dL (7-18); CALCIUM 8.1 MG/DL (8.5-10.1); CARBON DIOXIDE 29 MMOL/L (21-32); CHLORIDE 107 MMOL/L (98-107); CREATININE 0.9 MG/DL (0.55-1.30); POTASSIUM 3.9 MMOL/L (3.5-5.1); SODIUM 143 MMOL/L (136-145)
[2017-04-14] MEDS: Aspirin EC 81mg tab ORAL SCH (08:45)
[2017-04-14] MEDS: Venlafaxine XR 37.5mg cap ORAL SCH (08:45)
[2017-04-14] MEDS: Pantoprazole Inj IV SCH (08:45)
[2017-04-14] MEDS: dilTIAZem HCl 60mg tab ORAL SCH ×3 (08:45→20:48)
[2017-04-14] MEDS: Heparin 5000 units/ml inj SUBQ SCH ×2 (09:00→20:51)
--- NOTE | 2017-04-14 11:11 | GI Initial Consult Note ---
TishDanielapaco Au N.PIlda 04/14/17 1111: History of Present Illness General Date patient seen: Apr 14, 2017 Time patient seen: 11:05 Reason for Hospitalization: Nausea Referring physician: RIC ALEXANDER Reason for Consultation: Vomitting Present Illness HPI This patient [facility] from a [facility]. She presents for vomiting. She states that she has had 3 days of vomiting. However, the nursing facility reports 3 episodes of vomiting today. She also complains of allover body pain. She denies chest pain or shortness of breath. There are no other complaints. She does have a history of recurrent UTI with ESBL. GI consulted for emesis/anemia. ROS limited, AMS. Pt seen on floor, awake A&O NAD with no active s/sx of N/V/D. Patient c/o of N/V. No reported emesis since admission to the floor. She presents today with mild anemia. The patient has unknown history of endoscopic procedures and refuses to have any done. No leukocytosis. Lipase normal. Home Meds Reported Medications Temazepam (TEMAZEPAM) 22.5 Mg Capsule, 15 MG PO Y for insomnia, CAP 03/23/17 Polyethylene Glycol 3350* (POLYETHYLENE GLYCOL 3350*) 17 Gm Powd.pack, 17 GM ORAL DAILY for Constipation, PACKET 03/23/17 Albuterol Sulfate* (ALBUTEROL SULFATE HHN*) 2.5 Mg/3 Ml Vial.neb, 3 ML INH Q4H Y for Shortness of Breath, EA 03/23/17 Aspirin* (ASPIR-LOW*) 81 Mg Tablet.dr, 81 MG ORAL DAILY, TAB 03/23/17 Acetaminophen* (ACETAMINOPHEN 325MG TABLET*) 325 Mg Tablet, 325 MG ORAL Q4H Y for Mild Pain/Temp > 100.5, TAB 03/23/17 Multivitamin With Minerals (MULTIVITAMINS WITH MINERALS*) 1 Each Tablet, 1 TAB ORAL DAILY, TAB 03/20/17 Lorazepam* (ATIVAN*) 0.5 Mg Tablet, 0.5 MG ORAL Q6HR Y for For Anxiety, TAB 03/20/17 Acetaminophen With Codeine (T#3) (TYLENOL #3 TAB*) Y Tab, 1 TAB ORAL Q6H Y for For Pain, TAB 08/05/16 Magnesium Hydroxide* (MILK OF MAGNESIA*) 400 Mg/5 Ml Oral.susp, 30 ML ORAL DAILY , ML 08/05/16 Docusate Sodium* (COLACE*) 100 Mg Capsule, 100 MG ORAL DAILY, CAP 08/05/16 Escitalopram Oxalate* (LEXAPRO*) 10 Mg Tablet, 10 MG ORAL DAILY, TAB 07/31/16 Hydralazine Hcl* (HYDRALAZINE HCL*) 10 Mg Tablet, 10 MG ORAL EVERY 6 HOURS, TAB 07/31/16 Sucralfate* (CARAFATE*) 1 Gm Tablet, 1 GM ORAL FOUR TIMES A DAY, TAB 07/31/16 Diltiazem Hcl* (CARDIZEM*) 60 Mg Tablet, 60 MG ORAL EVERY 8 HOURS, TAB 07/31/16 Discontinued Reported Medications Quetiapine Fumarate (QUETIAPINE FUMARATE) 300 Mg Tablet, 100 MG ORAL BEDTIME, TAB 03/23/17 Ondansetron* (ZOFRAN*) 4 Mg/2 Ml Vial, 4 MG IV Q6H Y for Nausea & Vomiting, VIAL 03/23/17 Nitroglycerin (NITROGLYCERIN) 0.4 Mg Tab.subl, 0.4 MG SL every 5 minutes for chest pain, TAB 03/23/17 Heparin Sodium,Porcine (HEPARIN SODIUM) 5,000 Unit/1 Ml Cartridge, 5000 UNIT IJ Q12HR 03/23/17 Morphine Sulfate* (MORPHINE SULFATE*) 2 Mg/1 Ml Cartridge, 2 MG IV Q4HR Y for prn, EA 03/23/17 Ertapenem Sodium* (INVanz*) 1 Gm Vial.port, 1 GM IVPB Q24H for 8 Days, VIAL 03/23/17 Hydrocodone Bit/Acetaminophen 5-325* ([place] 5-325 TABLET*) 1 Each Tablet, 1 TAB ORAL Q4H Y for For Pain, TAB 03/20/17 Phenazopyridine Hcl* (PYRIDIUM*) 200 Mg Tablet, 200 MG ORAL THREE TIMES A DAY, # 14 TAB 0 Refills 03/20/17 Nitrofurantoin Monohyd/M-Cryst (Nitrofurantoin [place]-Mcr 100 mg) 100 Mg Capsule, 100 MG ORAL BID, CAP 03/20/17 Venlafaxine Hcl* (EFFEXOR XR*) 37.5 Mg Cap.er.24h, 37.5 MG ORAL DAILY, #30 CAP 0 Refills 03/20/17 Discontinued Scripts Ertapenem (Invanz) 1 Gm Vial, 1 GM IM DAILY for 3 Days, VIAL Prov:RIC GONZALES 12/01/16 Med list reviewed/reconciled: Yes Allergies: Coded Allergies: HALOPERIDOL (Verified Allergy, Unknown, 01/28/09) HALOPERIDOL LACTATE (Unverified Allergy, Unknown, 07/30/16) VANCOMYCIN (Unverified Adverse Reaction, Intermediate, Shortness of Breath , 06/26/13) Patient History Limited by: medical condition History Provided By: Patient, Medical Record PMH Narrative Past Medical History: see triage record, HTN, NM, CAD, COPD, dementia Social History: Denies: smoking, alcohol use, drug use Reviewed Nursing Documentation: PMH: Agreed, PSxH: Agreed Nursing Documentation-PMH Hx Cardiac Problems: Yes Hx Hypertension: Yes Hx Asthma: No Hx COPD: Yes - Lymphedema Hx Cancer: No Hx Gastrointestinal Problems: Yes - gerd Hx Dialysis: No Hx Neurological Problems: Yes - anxiety disorder,lymphedema Hx Cerebrovascular Accident: No Hx Seizures: No Hx Weakness: Yes Review of Systems All Other Systems: negative except mentioned in HPI Physical Exam Vital Signs Date Time Temp Pulse Resp B/P (MAP) Pulse Ox O2 Delivery O2 Flow Rate FiO2 04/13/17 10:59 97.3 70 16 164/100 Room Air 04/13/17 15:03 7 04/14/17 00:58 3.0 Sp02 EP Interpretation: reviewed, normal Labs Laboratory Tests Test 04/13/17 12:45 04/14/17 07:30 White Blood Count 5.0 K/UL (4.8-10.8) 4.4 K/UL (4.8-10.8) L Red Blood Count 5.22 M/UL (4.20-5.40) 4.73 M/UL (4.20-5.40) Hemoglobin 13.5 G/DL (12.0-16.0) 12.1 G/DL (12.0-16.0) Hematocrit 43.3 % (37.0-47.0) 39.9 % (37.0-47.0) Mean Corpuscular Volume 83 FL (80-99) 84 FL (80-99) Mean Corpuscular Hemoglobin 25.9 PG (27.0-31.0) L 25.5 PG (27.0-31.0) L Mean Corpuscular Hemoglobin Concent 31.2 G/DL (32.0-36.0) L 30.2 G/DL (32.0-36.0) L Red Cell Distribution Width 14.6 % (11.6-14.8) 14.3 % (11.6-14.8) Platelet Count 181 K/UL (150-450) 158 K/UL (150-450) Mean Platelet Volume 7.1 FL (6.5-10.1) 5.6 FL (6.5-10.1) L Neutrophils (%) (Auto) 58.6 % (45.0-75.0) 57.9 % (45.0-75.0) Lymphocytes (%) (Auto) 29.4 % (20.0-45.0) 28.6 % (20.0-45.0) Monocytes (%) (Auto) 9.2 % (1.0-10.0) 9.6 % (1.0-10.0) Eosinophils (%) (Auto) 1.7 % (0.0-3.0) 2.9 % (0.0-3.0) Basophils (%) (Auto) 1.2 % (0.0-2.0) 1.0 % (0.0-2.0) Sodium Level 145 MMOL/L (136-145) 143 MMOL/L (136-145) Potassium Level 4.3 MMOL/L (3.5-5.1) 3.9 MMOL/L (3.5-5.1) Chloride Level 107 MMOL/L (98-107) 107 MMOL/L (98-107) Carbon Dioxide Level 31 MMOL/L (21-32) 29 MMOL/L (21-32) Anion Gap 7 mmol/L (5-15) 8 mmol/L (5-15) Blood Urea Nitrogen 25 mg/dL (7-18) H 29 mg/dL (7-18) H Creatinine 1.0 MG/DL (0.55-1.30) 0.9 MG/DL (0.55-1.30) Estimat Glomerular Filtration Rate 55.8 mL/min (>60) > 60 mL/min (>60) Glucose Level 106 MG/DL (74-106) 105 MG/DL (74-106) Calcium Level 8.7 MG/DL (8.5-10.1) 8.1 MG/DL (8.5-10.1) L Total Bilirubin 0.5 MG/DL (0.2-1.0) 0.4 MG/DL (0.2-1.0) Aspartate Amino Transf (AST/SGOT) 20 U/L (15-37) 16 U/L (15-37) Alanine Aminotransferase (ALT/SGPT) 23 U/L (12-78) 19 U/L (12-78) Alkaline Phosphatase 112 U/L (46-116) 95 U/L (46-116) Total Protein 8.6 G/DL (6.4-8.2) H 7.5 G/DL (6.4-8.2) Albumin 4.0 G/DL (3.4-5.0) 3.5 G/DL (3.4-5.0) Globulin 4.6 g/dL 4.0 g/dL Albumin/Globulin Ratio 0.9 (1.0-2.7) L 0.9 (1.0-2.7) L Lipase 97 U/L (73-393) 71 U/L (73-393) L Activated Partial Thromboplast Time 26 SEC (23-33) Amylase Level 37 U/L (25-115) General Appearance: well appearing, no apparent distress, alert, obese Head: normocephalic EENT: PERRL/EOMI, normal ENT inspection Neck: supple Respiratory: normal breath sounds, no respiratory distress Cardiovascular: normal rate Gastrointestinal: normal inspection, non tender, soft, normal bowel sounds, non -distended Rectal: deferred Genitourinary: no CVA tenderness Musculoskeletal: normal inspection, back normal Neurologic: normal inspection, alert, responsive Psychiatric: judgement/insight normal Skin: normal inspection, normal color, no rash, warm/dry, palpation normal, well hydrated Lymphatic: normal inspection, no adenopathy Current Medications Current Medications Medications (Trade) Dose Ordered Sig/Shiraz Route PRN Reason Start Time Stop Time Status Last Admin Dose Admin Acetaminophen (Tylenol) 650 mg Q4H PRN ORAL T>100.5 04/13/17 15:45 05/13/17 15:44 Al Hydroxide/Mg Hydroxide (Mylanta II) 30 ml Q6H PRN ORAL dyspepsia 04/13/17 15:45 05/13/17 15:44 Aspirin (Ecotrin) 81 mg DAILY ORAL 04/14/17 09:00 05/14/17 08:59 04/14/17 08:45 Dextrose (Dextrose 50%) STAT PRN IV Hypoglycemia 04/13/17 15:45 05/13/17 15:44 Dextrose/Sodium Chloride 1,000 ml @ 75 mls/hr [id number] IV 04/13/17 16:00 05/13/17 15:59 04/14/17 01:57 Diltiazem HCl (Cardizem) 60 mg EVERY 8 HOURS ORAL 04/13/17 22:00 05/13/17 21:59 04/14/17 08:45 Diphenhydramine HCl (Benadryl) 25 mg Q6H PRN ORAL Itching/Pruritis 04/13/17 15:45 05/13/17 15:44 Escitalopram Oxalate (Lexapro) 10 mg DAILY ORAL 04/14/17 09:00 05/14/17 08:59 Heparin Sodium (Porcine) (Heparin 5000 units/ml) 5,000 units EVERY 12 HOURS SUBQ 04/13/17 21:00 05/13/17 20:59 04/13/17 20:55 Hydralazine HCl (Apresoline) 10 mg EVERY 6 HOURS ORAL 04/13/17 18:00 05/13/17 17:59 04/14/17 01:57 Lorazepam (Ativan 2mg/ml 1ml) 1 mg Q4H PRN IV agitation 04/13/17 15:45 04/20/17 15:44 Morphine Sulfate (Morphine Sulfate) 2 mg Q4H PRN IVP Severe Pain (Pain Scale 7-10) 04/13/17 15:45 04/20/17 15:44 04/14/17 08:47 Nitroglycerin (Ntg) 0.4 mg Q5M X 3 DOSES PRN SL Prn Chest Pain 04/13/17 15:45 05/13/17 15:44 Ondansetron HCl (Zofran) 4 mg Q6H PRN IVP Nausea & Vomiting 04/13/17 16:00 05/13/17 15:59 04/14/17 08:45 Pantoprazole (Protonix) 40 mg DAILY IV 04/14/17 09:00 05/14/17 08:59 04/14/17 08:45 Polyethylene Glycol (Miralax) 17 gm HSPRN PRN ORAL Constipation 04/13/17 21:00 05/13/17 20:59 Promethazine HCl (Phenergan) 25 mg Q8H PRN IV refractory nausea 04/13/17 15:45 05/13/17 15:44 Temazepam (Restoril) 15 mg HSPRN PRN ORAL Insomnia 04/13/17 21:00 04/20/17 20:59 Venlafaxine HCl (Effexor-XR) 37.5 mg DAILY ORAL 04/14/17 09:00 05/14/17 08:59 04/14/17 08:45 GI: Plan Problems: (1) Abdominal pain (2) Nausea and vomiting in adult patient (3) Opiate dependence (4) Anemia (5) Emesis Plan symptomatic treatment anemia work up >> iron panel given history of deficiency OB stool r/o GI bleed ppi daily bowel regime >> miralax + colace ATC, dulcolax prn zofran prn, reglan for persistent vomiting decrease narcotic use fu labs outpatient GI procedures Discussed with Dr. Hernandez. Thank you for referring this patient, we will follow. IRON HERNANDEZ 04/19/17 1132: History of Present Illness General Reason for Hospitalization: Nausea Present Illness Home Meds Reported Medications Temazepam (TEMAZEPAM) 22.5 Mg Capsule, 15 MG PO Y for insomnia, CAP 03/23/17 Polyethylene Glycol 3350* (POLYETHYLENE GLYCOL 3350*) 17 Gm Powd.pack, 17 GM ORAL DAILY for Constipation, PACKET 03/23/17 Albuterol Sulfate* (ALBUTEROL SULFATE HHN*) 2.5 Mg/3 Ml Vial.neb, 3 ML INH Q4H Y for Shortness of Breath, EA 03/23/17 Aspirin* (ASPIR-LOW*) 81 Mg Tablet.dr, 81 MG ORAL DAILY, TAB 03/23/17 Acetaminophen* (ACETAMINOPHEN 325MG TABLET*) 325 Mg Tablet, 325 MG ORAL Q4H Y for Mild Pain/Temp > 100.5, TAB 03/23/17 Multivitamin With Minerals (MULTIVITAMINS WITH MINERALS*) 1 Each Tablet, 1 TAB ORAL DAILY, TAB 03/20/17 Lorazepam* (ATIVAN*) 0.5 Mg Tablet, 0.5 MG ORAL Q6HR Y for For Anxiety, TAB 03/20/17 Acetaminophen With Codeine (T#3) (TYLENOL #3 TAB*) Y Tab, 1 TAB ORAL Q6H Y for For Pain, TAB 08/05/16 Magnesium Hydroxide* (MILK OF MAGNESIA*) 400 Mg/5 Ml Oral.susp, 30 ML ORAL DAILY , ML 08/05/16 Docusate Sodium* (COLACE*) 100 Mg Capsule, 100 MG ORAL DAILY, CAP 08/05/16 Escitalopram Oxalate* (LEXAPRO*) 10 Mg Tablet, 10 MG ORAL DAILY, TAB 07/31/16 Hydralazine Hcl* (HYDRALAZINE HCL*) 10 Mg Tablet, 10 MG ORAL EVERY 6 HOURS, TAB 07/31/16 Sucralfate* (CARAFATE*) 1 Gm Tablet, 1 GM ORAL FOUR TIMES A DAY, TAB 07/31/16 Diltiazem Hcl* (CARDIZEM*) 60 Mg Tablet, 60 MG ORAL EVERY 8 HOURS, TAB 07/31/16 Discontinued Reported Medications Quetiapine Fumarate (QUETIAPINE FUMARATE) 300 Mg Tablet, 100 MG ORAL BEDTIME, TAB 03/23/17 Ondansetron* (ZOFRAN*) 4 Mg/2 Ml Vial, 4 MG IV Q6H Y for Nausea & Vomiting, VIAL 03/23/17 Nitroglycerin (NITROGLYCERIN) 0.4 Mg Tab.subl, 0.4 MG SL every 5 minutes for chest pain, TAB 03/23/17 Heparin Sodium,Porcine (HEPARIN SODIUM) 5,000 Unit/1 Ml Cartridge, 5000 UNIT IJ Q12HR 03/23/17 Morphine Sulfate* (MORPHINE SULFATE*) 2 Mg/1 Ml Cartridge, 2 MG IV Q4HR Y for prn, EA 03/23/17 Ertapenem Sodium* (INVanz*) 1 Gm Vial.port, 1 GM IVPB Q24H for 8 Days, VIAL 03/23/17 Hydrocodone Bit/Acetaminophen 5-325* (NORCO 5-325 TABLET*) 1 Each Tablet, 1 TAB ORAL Q4H Y for For Pain, TAB 03/20/17 Phenazopyridine Hcl* (PYRIDIUM*) 200 Mg Tablet, 200 MG ORAL THREE TIMES A DAY, # 14 TAB 0 Refills 03/20/17 Nitrofurantoin Monohyd/M-Cryst (Nitrofurantoin [place]ill-Mcr 100 mg) 100 Mg Capsule, 100 MG ORAL BID, CAP 03/20/17 Venlafaxine Hcl* (EFFEXOR XR*) 37.5 Mg Cap.er.24h, 37.5 MG ORAL DAILY, #30 CAP 0 Refills 03/20/17 Discontinued Scripts Ertapenem (Invanz) 1 Gm Vial, 1 GM IM DAILY for 3 Days, VIAL Prov:RIC GONZALES 12/01/16 Allergies: Coded Allergies: HALOPERIDOL (Verified Allergy, Unknown, 01/28/09) HALOPERIDOL LACTATE (Unverified Allergy, Unknown, 07/30/16) VANCOMYCIN (Unverified Adverse Reaction, Intermediate, Shortness of Breath , 06/26/13) GI: Plan Plan The patient was seen and examined at bedside and all new and available data was reviewed in the patients chart. I agree with the above findings, impression and plan. (Patient seen earlier today. Signature stamp does not reflect patient encounter time.). - MD Tish LopezBanner Roe N.PIlda Apr 14, 2017 11:11 IRON HERNANDEZ Apr 19, 2017 11:32
[2017-04-14] MEDS: Docusate 100mg cap ORAL SCH ×3 (13:57→17:33)
[2017-04-14] MEDS ORDERED: Metoclopramide 10mg/2ml Inj IVP PRN (17:45)
--- NOTE | 2017-04-14 20:42 | Pulmonology Progress Note ---
Assessment/Plan Problems: (1) Intractable nausea and vomiting (2) chronic lymphedema (3) Infection due to ESBL-producing Escherichia coli (4) Chronic ulcer of leg (5) Obesity Assessment/Plan f/uGI recommendation anemia w/u symtomatic treatment Subjective Interval Events: c/o pain all over the body Allergies: Coded Allergies: HALOPERIDOL (Verified Allergy, Unknown, 01/28/09) HALOPERIDOL LACTATE (Unverified Allergy, Unknown, 07/30/16) VANCOMYCIN (Unverified Adverse Reaction, Intermediate, Shortness of Breath , 06/26/13) Objective Last 24 Hour Vital Signs Date Time Temp Pulse Resp B/P (MAP) Pulse Ox O2 Delivery O2 Flow Rate FiO2 04/14/17 20:00 98.0 70 20 183/103 98 Nasal Cannula 2.0 04/14/17 18:28 97.9 04/14/17 17:08 170/93 04/14/17 13:57 65 170/93 04/14/17 12:00 170/93 04/14/17 11:42 97.9 65 21 170/93 97 04/14/17 09:00 97.6 64 20 151/80 95 Room Air 04/14/17 08:45 69 155/88 04/14/17 04:00 96.4 69 20 155/88 97 Room Air 04/14/17 01:57 143/85 04/14/17 01:13 97.3 68 22 143/85 95 04/14/17 00:58 97.3 68 22 143/85 95 Nasal Cannula 3.0 04/14/17 00:00 97.4 60 20 151/75 94 Room Air 04/13/17 20:50 60 151/75 Intake and Output 04/13/17 04/14/17 19:00 07:00 Intake Total 0 ml 375 ml Output Total 50 ml 1 ml Balance -50 ml 374 ml Intake Oral 0 ml IV Total 375 ml Output Urine Total 1 ml Emesis 50 ml Objective General Appearance: cachetic Lines, tubes and drains: peripheral HEENT: normocephalic, atraumatic Neck: non-tender, normal alignment Respiratory/Chest: chest wall non-tender, lungs clear Breasts: no masses Cardiovascular/Chest: normal peripheral pulses, normal rate Abdomen: non tender Genitourinary/Rectal: normal genital exam Extremities: normal range of motion, massive edema Skin Exam: normal pigmentation 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 Laboratory Tests 04/14/17 07:30: White Blood Count 4.4L, Red Blood Count 4.73, Hemoglobin 12.1, Hematocrit 39.9, Mean Corpuscular Volume 84, Mean Corpuscular Hemoglobin 25.5L, Mean Corpuscular Hemoglobin Concent 30.2L, Red Cell Distribution Width 14.3, Platelet Count 158, Mean Platelet Volume 5.6L, Neutrophils (%) (Auto) 57.9, Lymphocytes (%) (Auto) 28.6, Monocytes (%) (Auto) 9.6, Eosinophils (%) (Auto) 2.9, Basophils (%) (Auto ) 1.0, Activated Partial Thromboplast Time 26, Sodium Level 143, Potassium Level 3.9, Chloride Level 107, Carbon Dioxide Level 29, Anion Gap 8, Blood Urea Nitrogen 29H, Creatinine 0.9, Estimat Glomerular Filtration Rate > 60, Glucose Level 105, Calcium Level 8.1L, Total Bilirubin 0.4, Aspartate Amino Transf (AST/ SGOT) 16, Alanine Aminotransferase (ALT/SGPT) 19, Alkaline Phosphatase 95, Total Protein 7.5, Albumin 3.5, Globulin 4.0, Albumin/Globulin Ratio 0.9L, Amylase Level 37, Lipase 71L Current Medications Medications (Trade) Dose Ordered Sig/Shiraz Route PRN Reason Start Time Stop Time Status Last Admin Dose Admin Acetaminophen (Tylenol) 650 mg Q4H PRN ORAL T>100.5 04/13/17 15:45 05/13/17 15:44 Al Hydroxide/Mg Hydroxide (Mylanta II) 30 ml Q6H PRN ORAL dyspepsia 04/13/17 15:45 05/13/17 15:44 Aspirin (Ecotrin) 81 mg DAILY ORAL 04/14/17 09:00 05/14/17 08:59 04/14/17 08:45 Dextrose (Dextrose 50%) STAT PRN IV Hypoglycemia 04/13/17 15:45 05/13/17 15:44 Dextrose/Sodium Chloride 1,000 ml @ 75 mls/hr [id number] IV 04/13/17 16:00 05/13/17 15:59 04/14/17 15:02 Diltiazem HCl (Cardizem) 60 mg EVERY 8 HOURS ORAL 04/13/17 22:00 05/13/17 21:59 04/14/17 13:57 Diphenhydramine HCl (Benadryl) 25 mg Q6H PRN ORAL Itching/Pruritis 04/13/17 15:45 05/13/17 15:44 Docusate Sodium (Colace) 100 mg THREE TIMES A DAY ORAL 04/14/17 13:00 05/14/17 12:59 04/14/17 13:57 Escitalopram Oxalate (Lexapro) 10 mg DAILY ORAL 04/14/17 09:00 05/14/17 08:59 Heparin Sodium (Porcine) (Heparin 5000 units/ml) 5,000 units EVERY 12 HOURS SUBQ 04/13/17 21:00 05/13/17 20:59 04/13/17 20:55 Hydralazine HCl (Apresoline) 10 mg EVERY 6 HOURS ORAL 04/13/17 18:00 05/13/17 17:59 04/14/17 17:08 Lorazepam (Ativan 2mg/ml 1ml) 1 mg Q4H PRN IV agitation 04/13/17 15:45 04/20/17 15:44 Morphine Sulfate (Morphine Sulfate) 2 mg Q4H PRN IVP Severe Pain (Pain Scale 7-10) 04/13/17 15:45 04/20/17 15:44 04/14/17 17:58 Nitroglycerin (Ntg) 0.4 mg Q5M X 3 DOSES PRN SL Prn Chest Pain 04/13/17 15:45 05/13/17 15:44 Ondansetron HCl (Zofran) 4 mg Q6H PRN IVP Nausea & Vomiting 04/13/17 16:00 05/13/17 15:59 04/14/17 15:47 Pantoprazole (Protonix) 40 mg DAILY IV 04/14/17 09:00 05/14/17 08:59 04/14/17 08:45 Polyethylene Glycol (Miralax) 17 gm BEDTIME ORAL 04/14/17 21:00 05/14/17 20:59 Promethazine HCl (Phenergan) 25 mg Q8H PRN IV refractory nausea 04/13/17 15:45 05/13/17 15:44 Temazepam (Restoril) 15 mg HSPRN PRN ORAL Insomnia 04/13/17 21:00 04/20/17 20:59 Venlafaxine HCl (Effexor-XR) 37.5 mg DAILY ORAL 04/14/17 09:00 05/14/17 08:59 04/14/17 08:45 RIC GONZALES Apr 14, 2017 20:42
[2017-04-14] MEDS: Miralax 17gm pkt ORAL SCH (20:43)
[2017-04-15] MEDS: Morphine Sulfate 2mg/ml Inj IVP PRN ×5 (02:43→21:10)
[2017-04-15 04:36] VITALS: BP 145/89
[2017-04-15] MEDS: dilTIAZem HCl 60mg tab ORAL SCH ×3 (06:49→21:03)
[2017-04-15] MEDS: HydrALAZINE 10mg Tab ORAL SCH ×5 (06:50→23:45)
[2017-04-15 07:28] LABS: BASOPHILS % (AUTO) 0.6 % (0.0-2.0); HEMOGLOBIN 11.8 G/DL (12.0-16.0); LYMPHOCYTES % (AUTO) 26.9 % (20.0-45.0); MEAN CORPUSCULAR VOLUME 84 FL (80-99); MONOCYTES % (AUTO) 9.5 % (1.0-10.0); NEUTROPHILS % (AUTO) 60.1 % (45.0-75.0); PLATELET COUNT 149 K/UL (150-450); RED BLOOD COUNT 4.43 M/UL (4.20-5.40); RED CELL DISTRIBUTION WIDTH 14.5 % (11.6-14.8); WHITE BLOOD COUNT 3.7 K/UL (4.8-10.8)
[2017-04-15 07:47] LABS: % IRON SATURATION 14 % (15-50); IRON 41 ug/dL (50-175); TOTAL IRON BINDING CAPACITY 300 ug/dL (250-450)
[2017-04-15 07:57] LABS: ANION GAP 8 mmol/L (5-15); BLOOD UREA NITROGEN 23 mg/dL (7-18); CARBON DIOXIDE 28 MMOL/L (21-32); CHLORIDE 109 MMOL/L (98-107); CREATININE 0.8 MG/DL (0.55-1.30); POTASSIUM 3.8 MMOL/L (3.5-5.1); SODIUM 145 MMOL/L (136-145)
[2017-04-15] MEDS: D5 1/2NS 1,000 ML IV SCH ×2 (08:00→20:59)
[2017-04-15 09:00] VITALS: BP 151/69
[2017-04-15] MEDS: Heparin 5000 units/ml inj SUBQ SCH ×2 (09:00→20:59)
--- NOTE | 2017-04-15 09:41 | Pulmonology Progress Note ---
Assessment/Plan Assessment/Plan ASSESSMENT Intractable n/v opiate dependency abdominal pain GERD HTN urgency COPD CAD/VT chronic lymphedema BLE ( r/o cellulitis -negative ) morbid obesity hx of recurrent UTI PLAN OF CARE MS floor IVF tolerates CL diet and advance as tolerated a/emetic prn abdominal US GI follows PPI Bowel regimen stool OB and iron panel BP management with CCB and Hydralazine, optimize further as needed pain management, decrease narcotic use SNF meds resumed O2 HH prn ID consult due to chronic lymphedema and possible cellulitis appreciated, no cellulitis, monitor off abx PT eval DNR/DNI status case discussed and evaluated by supervising physician Subjective Allergies: Coded Allergies: HALOPERIDOL (Verified Allergy, Unknown, 01/28/09) HALOPERIDOL LACTATE (Unverified Allergy, Unknown, 07/30/16) VANCOMYCIN (Unverified Adverse Reaction, Intermediate, Shortness of Breath , 06/26/13) Subjective denies abdominal pain, n/v/ tolerates CL diet Objective Last 24 Hour Vital Signs Date Time Temp Pulse Resp B/P (MAP) Pulse Ox O2 Delivery O2 Flow Rate FiO2 04/15/17 06:50 145/89 04/15/17 06:49 68 145/89 04/15/17 04:36 98.6 68 18 145/89 96 Room Air 04/14/17 20:48 70 183/103 04/14/17 20:00 98.0 70 20 183/103 98 Nasal Cannula 2.0 04/14/17 18:28 97.9 04/14/17 17:08 170/93 04/14/17 13:57 65 170/93 04/14/17 12:00 170/93 04/14/17 11:42 97.9 65 21 170/93 97 Intake and Output 04/14/17 04/15/17 19:00 07:00 Intake Total 1260 ml 375 ml Output Total 300 ml Balance 1260 ml 75 ml Intake Oral 360 ml IV Total 900 ml 375 ml Output Urine Total 300 ml General Appearance: no acute distress, other - A/A/O x 3 obese female in NAD HEENT: normocephalic, atraumatic, anicteric, mucous membranes moist Respiratory/Chest: lungs clear, no respiratory distress, no accessory muscle use Cardiovascular: normal rate, no JVD, other - LUE PICC intact Abdomen: normal bowel sounds, soft, non tender - obese Extremities: other - edema +2 BLE with chronic lymphedema Neurologic/Psychiatric: abnormal gait - with walker , alert, oriented x 3, responsive Laboratory Tests 04/15/17 05:00: White Blood Count 3.7L, Red Blood Count 4.43, Hemoglobin 11.8L, Hematocrit 37.0 , Mean Corpuscular Volume 84, Mean Corpuscular Hemoglobin 26.6L, Mean Corpuscular Hemoglobin Concent 31.9L, Red Cell Distribution Width 14.5, Platelet Count 149L, Mean Platelet Volume 6.8, Neutrophils (%) (Auto) 60.1, Lymphocytes (%) (Auto) 26.9, Monocytes (%) (Auto) 9.5, Eosinophils (%) (Auto) 3.0, Basophils (%) (Auto) 0.6, Sodium Level 145, Potassium Level 3.8, Chloride Level 109H, Carbon Dioxide Level 28, Anion Gap 8, Blood Urea Nitrogen 23H, Creatinine 0.8, Estimat Glomerular Filtration Rate > 60, Glucose Level 99, Calcium Level 8.0L, Iron Level 41L, Total Iron Binding Capacity 300, Percent Iron Saturation 14L, Unsaturated Iron Binding 259 Current Medications Medications (Trade) Dose Ordered Sig/Shiraz Route PRN Reason Start Time Stop Time Status Last Admin Dose Admin Acetaminophen (Tylenol) 650 mg Q4H PRN ORAL T>100.5 04/13/17 15:45 05/13/17 15:44 Al Hydroxide/Mg Hydroxide (Mylanta II) 30 ml Q6H PRN ORAL dyspepsia 04/13/17 15:45 05/13/17 15:44 Aspirin (Ecotrin) 81 mg DAILY ORAL 04/14/17 09:00 05/14/17 08:59 04/14/17 08:45 Dextrose (Dextrose 50%) STAT PRN IV Hypoglycemia 04/13/17 15:45 05/13/17 15:44 Dextrose/Sodium Chloride 1,000 ml @ 75 mls/hr [id number] IV 04/13/17 16:00 05/13/17 15:59 04/14/17 15:02 Diltiazem HCl (Cardizem) 60 mg EVERY 8 HOURS ORAL 04/13/17 22:00 05/13/17 21:59 04/15/17 06:49 Diphenhydramine HCl (Benadryl) 25 mg Q6H PRN ORAL Itching/Pruritis 04/13/17 15:45 05/13/17 15:44 Docusate Sodium (Colace) 100 mg THREE TIMES A DAY ORAL 04/14/17 13:00 05/14/17 12:59 04/14/17 13:57 Escitalopram Oxalate (Lexapro) 10 mg DAILY ORAL 04/14/17 09:00 05/14/17 08:59 Heparin Sodium (Porcine) (Heparin 5000 units/ml) 5,000 units EVERY 12 HOURS SUBQ 04/13/17 21:00 05/13/17 20:59 04/14/17 20:51 Hydralazine HCl (Apresoline) 10 mg EVERY 6 HOURS ORAL 04/13/17 18:00 05/13/17 17:59 04/15/17 06:50 Lorazepam (Ativan 2mg/ml 1ml) 1 mg Q4H PRN IV agitation 04/13/17 15:45 04/20/17 15:44 Morphine Sulfate (Morphine Sulfate) 2 mg Q4H PRN IVP Severe Pain (Pain Scale 7-10) 04/13/17 15:45 04/20/17 15:44 04/15/17 06:51 Nitroglycerin (Ntg) 0.4 mg Q5M X 3 DOSES PRN SL Prn Chest Pain 04/13/17 15:45 05/13/17 15:44 Ondansetron HCl (Zofran) 4 mg Q6H PRN IVP Nausea & Vomiting 04/13/17 16:00 05/13/17 15:59 04/15/17 06:50 Pantoprazole (Protonix) 40 mg DAILY IV 04/14/17 09:00 05/14/17 08:59 04/14/17 08:45 Polyethylene Glycol (Miralax) 17 gm BEDTIME ORAL 04/14/17 21:00 05/14/17 20:59 04/14/17 20:43 Promethazine HCl (Phenergan) 25 mg Q8H PRN IV refractory nausea 04/13/17 15:45 05/13/17 15:44 Temazepam (Restoril) 15 mg HSPRN PRN ORAL Insomnia 04/13/17 21:00 04/20/17 20:59 Venlafaxine HCl (Effexor-XR) 37.5 mg DAILY ORAL 04/14/17 09:00 05/14/17 08:59 04/14/17 08:45 Andrés ([facility])Luz NP Apr 15, 2017 09:40
[2017-04-15] MEDS: Pantoprazole Inj IV SCH (09:57)
[2017-04-15] MEDS: Aspirin EC 81mg tab ORAL SCH (09:58)
[2017-04-15] MEDS: Venlafaxine XR 37.5mg cap ORAL SCH (09:58)
[2017-04-15] MEDS: Docusate 100mg cap ORAL SCH ×3 (09:58→18:37)
[2017-04-15 12:00] VITALS: BP 150/84
--- NOTE | 2017-04-15 13:38 | GI Progress Note ---
Assessment/Plan Problems: (1) Intractable nausea and vomiting ICD Codes: R11.2 - Nausea with vomiting, unspecified SNOMED: 117554342 (2) Obesity ICD Codes: E66.9 - Obesity, unspecified SNOMED: 895972942 (3) Abdominal pain ICD Codes: R10.9 - Abdominal pain SNOMED: 89947071 (4) Opiate dependence (5) Emesis ICD Codes: R11.10 - Vomiting, unspecified SNOMED: 131424450 (6) Nausea and vomiting in adult patient ICD Codes: R11.2 - Nausea with vomiting, unspecified SNOMED: 18847592 (7) GERD (gastroesophageal reflux disease) ICD Codes: K21.9 - Gastro-esophageal reflux disease without esophagitis SNOMED: 970532286 Status: progressing Status Narrative Discussed with Dr. Victoria. Assessment/Plan symptomatic treatment adv diet OB stool r/o GI bleed ppi daily bowel regime >> miralax + colace ATC, dulcolax prn zofran prn, reglan for persistent vomiting decrease narcotic use fu labs outpatient GI procedures Subjective Subjective nausea has improved, wishes to adv diet. Objective Last 24 Hour Vital Signs Date Time Temp Pulse Resp B/P (MAP) Pulse Ox O2 Delivery O2 Flow Rate FiO2 04/15/17 12:30 150/84 04/15/17 12:00 97.9 57 20 150/84 93 04/15/17 09:00 97.9 66 20 151/69 96 Nasal Cannula 2.0 04/15/17 06:50 145/89 04/15/17 06:49 68 145/89 04/15/17 04:36 98.6 68 18 145/89 96 Room Air 04/14/17 20:48 70 183/103 04/14/17 20:00 98.0 70 20 183/103 98 Nasal Cannula 2.0 04/14/17 18:28 97.9 04/14/17 17:08 170/93 04/14/17 13:57 65 170/93 Intake and Output 04/14/17 04/15/17 19:00 07:00 Intake Total 1260 ml 375 ml Output Total 300 ml Balance 1260 ml 75 ml Intake Oral 360 ml IV Total 900 ml 375 ml Output Urine Total 300 ml Laboratory Tests Test 04/15/17 05:00 White Blood Count 3.7 K/UL (4.8-10.8) L Red Blood Count 4.43 M/UL (4.20-5.40) Hemoglobin 11.8 G/DL (12.0-16.0) L Hematocrit 37.0 % (37.0-47.0) Mean Corpuscular Volume 84 FL (80-99) Mean Corpuscular Hemoglobin 26.6 PG (27.0-31.0) L Mean Corpuscular Hemoglobin Concent 31.9 G/DL (32.0-36.0) L Red Cell Distribution Width 14.5 % (11.6-14.8) Platelet Count 149 K/UL (150-450) L Mean Platelet Volume 6.8 FL (6.5-10.1) Neutrophils (%) (Auto) 60.1 % (45.0-75.0) Lymphocytes (%) (Auto) 26.9 % (20.0-45.0) Monocytes (%) (Auto) 9.5 % (1.0-10.0) Eosinophils (%) (Auto) 3.0 % (0.0-3.0) Basophils (%) (Auto) 0.6 % (0.0-2.0) Sodium Level 145 MMOL/L (136-145) Potassium Level 3.8 MMOL/L (3.5-5.1) Chloride Level 109 MMOL/L (98-107) H Carbon Dioxide Level 28 MMOL/L (21-32) Anion Gap 8 mmol/L (5-15) Blood Urea Nitrogen 23 mg/dL (7-18) H Creatinine 0.8 MG/DL (0.55-1.30) Estimat Glomerular Filtration Rate > 60 mL/min (>60) Glucose Level 99 MG/DL (74-106) Calcium Level 8.0 MG/DL (8.5-10.1) L Iron Level 41 ug/dL (50-175) L Total Iron Binding Capacity 300 ug/dL (250-450) Percent Iron Saturation 14 % (15-50) L Unsaturated Iron Binding 259 ug/dL (112-346) Height (Feet): 5 Height (Inches): 6.00 Weight (Pounds): 255 General Appearance: WD/WN, no apparent distress, alert, overweight, obese Cardiovascular: normal rate Respiratory/Chest: normal breath sounds, no respiratory distress Abdominal Exam: normal bowel sounds, non tender, soft Extremities: normal range of motion, non-tender Daniela Winston N.P. Apr 15, 2017 13:38
--- NOTE | 2017-04-15 13:54 | Consultation ---
History of Present Illness General Date patient seen: Apr 15, 2017 Time patient seen: 13:52 Chief Complaint: Nausea Referring physician: RIC ALEXANDER Reason for Consultation: Vomitting Present Illness HPI 66 y/o F with hx of HTN, CAD/AK, COPD, Dementia, chronic lymphedema, opiate dependency, morbid obesity, GERD, hx of recurrent UTI with ESBL, SNF resident presents to ED on 04/13 with 3 days of vomiting, diffuse body pain Denies CP, SOB Id consulted for lymphdema and concern for possible cellulitis Afebrile, no leukocytosis. Off Abx. Allergies: Coded Allergies: HALOPERIDOL (Verified Allergy, Unknown, 01/28/09) HALOPERIDOL LACTATE (Unverified Allergy, Unknown, 07/30/16) VANCOMYCIN (Unverified Adverse Reaction, Intermediate, Shortness of Breath , 06/26/13) Medication History Scheduled Aspirin* (Aspir-Low*), 81 MG ORAL DAILY, (Reported) Diltiazem Hcl* (Cardizem*), 60 MG ORAL EVERY 8 HOURS, (Reported) Docusate Sodium* (Colace*), 100 MG ORAL DAILY, (Reported) Ertapenem (Invanz), 1 GM IM DAILY Ertapenem Sodium* (INVanz*), 1 GM IVPB Q24H, (Reported) Escitalopram Oxalate* (Lexapro*), 10 MG ORAL DAILY, (Reported) Heparin Sodium,Porcine (Heparin Sodium), 5,000 UNIT IJ Q12HR, (Reported) Hydralazine Hcl* (Hydralazine Hcl*), 10 MG ORAL EVERY 6 HOURS, (Reported) Magnesium Hydroxide* (Milk Of Magnesia*), 30 ML ORAL DAILY, (Reported) Multivitamin With Minerals (Multivitamins With Minerals*), 1 TAB ORAL DAILY, ( Reported) Nitrofurantoin Monohyd/M-Cryst (Nitrofurantoin [place]-Mcr 100 mg), 100 MG ORAL BID , (Reported) Nitroglycerin (Nitroglycerin), 0.4 MG SL every 5 minutes, (Reported) Phenazopyridine Hcl* (Pyridium*), 200 MG ORAL THREE TIMES A DAY, (Reported) Polyethylene Glycol 3350* (Polyethylene Glycol 3350*), 17 GM ORAL DAILY, ( Reported) Quetiapine Fumarate (Quetiapine Fumarate), 100 MG ORAL BEDTIME, (Reported) Sucralfate* (Carafate*), 1 GM ORAL FOUR TIMES A DAY, (Reported) Venlafaxine Hcl* (Effexor Xr*), 37.5 MG ORAL DAILY, (Reported) Scheduled PRN Acetaminophen With Codeine (T#3) (Tylenol #3 Tab*), 1 TAB ORAL Q6H PRN for For Pain, (Reported) Acetaminophen* (Acetaminophen 325MG Tablet*), 325 MG ORAL Q4H PRN for Mild Pain/ Temp > 100.5, (Reported) Albuterol Sulfate* (Albuterol Sulfate Hhn*), 3 ML INH Q4H PRN for Shortness of Breath, (Reported) Hydrocodone Bit/Acetaminophen 5-325* ([place] 5-325 Tablet*), 1 TAB ORAL Q4H PRN for For Pain, (Reported) Lorazepam* (Ativan*), 0.5 MG ORAL Q6HR PRN for For Anxiety, (Reported) Morphine Sulfate* (Morphine Sulfate*), 2 MG IV Q4HR PRN for prn, (Reported) Ondansetron* (Zofran*), 4 MG IV Q6H PRN for Nausea & Vomiting, (Reported) Temazepam (Temazepam), 15 MG PO for insomnia, (Reported) Patient History Healthcare decision maker Resuscitation status Full Code Advanced Directive on File Patient History Narrative PMhx: as above SHx: Denies: smoking, alcohol use, drug use Fhx: non contributory Review of Systems All Other Systems: negative except mentioned in HPI Physical Exam Physical Exam Narrative General Appearance: obese, no distress Lines, tubes and drains: peripheral HEENT: normocephalic, atraumatic Neck: non-tender, normal alignment Respiratory/Chest: chest wall non-tender, lungs clear Breasts: no masses Cardiovascular/Chest: normal peripheral pulses, normal rate, RRR Abdomen: non tender, ND, BS+ Extremities: normal range of motion, chronic B/L lymphedema, chronic edema/ venous stasis changes, no evidence of cellulitis 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 Last 24 Hour Vital Signs Date Time Temp Pulse Resp B/P (MAP) Pulse Ox O2 Delivery O2 Flow Rate FiO2 04/15/17 12:30 150/84 04/15/17 12:00 97.9 57 20 150/84 93 1/5/18 09:00 97.9 66 20 151/69 96 Nasal Cannula 2.0 04/15/17 06:50 145/89 04/15/17 06:49 68 145/89 04/15/17 04:36 98.6 68 18 145/89 96 Room Air 04/14/17 20:48 70 183/103 04/14/17 20:00 98.0 70 20 183/103 98 Nasal Cannula 2.0 04/14/17 18:28 97.9 04/14/17 17:08 170/93 04/14/17 13:57 65 170/93 Intake and Output 04/14/17 04/15/17 19:00 07:00 Intake Total 1260 ml 375 ml Output Total 300 ml Balance 1260 ml 75 ml Intake Oral 360 ml IV Total 900 ml 375 ml Output Urine Total 300 ml Laboratory Tests Test 04/15/17 05:00 White Blood Count 3.7 K/UL (4.8-10.8) L Red Blood Count 4.43 M/UL (4.20-5.40) Hemoglobin 11.8 G/DL (12.0-16.0) L Hematocrit 37.0 % (37.0-47.0) Mean Corpuscular Volume 84 FL (80-99) Mean Corpuscular Hemoglobin 26.6 PG (27.0-31.0) L Mean Corpuscular Hemoglobin Concent 31.9 G/DL (32.0-36.0) L Red Cell Distribution Width 14.5 % (11.6-14.8) Platelet Count 149 K/UL (150-450) L Mean Platelet Volume 6.8 FL (6.5-10.1) Neutrophils (%) (Auto) 60.1 % (45.0-75.0) Lymphocytes (%) (Auto) 26.9 % (20.0-45.0) Monocytes (%) (Auto) 9.5 % (1.0-10.0) Eosinophils (%) (Auto) 3.0 % (0.0-3.0) Basophils (%) (Auto) 0.6 % (0.0-2.0) Sodium Level 145 MMOL/L (136-145) Potassium Level 3.8 MMOL/L (3.5-5.1) Chloride Level 109 MMOL/L (98-107) H Carbon Dioxide Level 28 MMOL/L (21-32) Anion Gap 8 mmol/L (5-15) Blood Urea Nitrogen 23 mg/dL (7-18) H Creatinine 0.8 MG/DL (0.55-1.30) Estimat Glomerular Filtration Rate > 60 mL/min (>60) Glucose Level 99 MG/DL (74-106) Calcium Level 8.0 MG/DL (8.5-10.1) L Iron Level 41 ug/dL (50-175) L Total Iron Binding Capacity 300 ug/dL (250-450) Percent Iron Saturation 14 % (15-50) L Unsaturated Iron Binding 259 ug/dL (112-346) Height (Feet): 5 Height (Inches): 6.00 Weight (Pounds): 255 Medications Current Medications Medications (Trade) Dose Ordered Sig/Shiraz Route PRN Reason Start Time Stop Time Status Last Admin Dose Admin Acetaminophen (Tylenol) 650 mg Q4H PRN ORAL T>100.5 04/13/17 15:45 05/13/17 15:44 Al Hydroxide/Mg Hydroxide (Mylanta II) 30 ml Q6H PRN ORAL dyspepsia 04/13/17 15:45 05/13/17 15:44 Aspirin (Ecotrin) 81 mg DAILY ORAL 04/14/17 09:00 05/14/17 08:59 04/15/17 09:58 Dextrose (Dextrose 50%) STAT PRN IV Hypoglycemia 04/13/17 15:45 05/13/17 15:44 Dextrose/Sodium Chloride 1,000 ml @ 75 mls/hr [id number] IV 04/13/17 16:00 05/13/17 15:59 04/14/17 15:02 Diltiazem HCl (Cardizem) 60 mg EVERY 8 HOURS ORAL 04/13/17 22:00 05/13/17 21:59 04/15/17 06:49 Diphenhydramine HCl (Benadryl) 25 mg Q6H PRN ORAL Itching/Pruritis 04/13/17 15:45 05/13/17 15:44 Docusate Sodium (Colace) 100 mg THREE TIMES A DAY ORAL 04/14/17 13:00 05/14/17 12:59 04/15/17 09:58 Escitalopram Oxalate (Lexapro) 10 mg DAILY ORAL 04/14/17 09:00 05/14/17 08:59 04/15/17 09:58 Heparin Sodium (Porcine) (Heparin 5000 units/ml) 5,000 units EVERY 12 HOURS SUBQ 04/13/17 21:00 05/13/17 20:59 04/14/17 20:51 Hydralazine HCl (Apresoline) 10 mg EVERY 6 HOURS ORAL 04/13/17 18:00 05/13/17 17:59 04/15/17 12:30 Lorazepam (Ativan 2mg/ml 1ml) 1 mg Q4H PRN IV agitation 04/13/17 15:45 04/20/17 15:44 Morphine Sulfate (Morphine Sulfate) 2 mg Q4H PRN IVP Severe Pain (Pain Scale 7-10) 04/13/17 15:45 04/20/17 15:44 04/15/17 12:21 Nitroglycerin (Ntg) 0.4 mg Q5M X 3 DOSES PRN SL Prn Chest Pain 04/13/17 15:45 05/13/17 15:44 Ondansetron HCl (Zofran) 4 mg Q6H PRN IVP Nausea & Vomiting 04/13/17 16:00 05/13/17 15:59 04/15/17 06:50 Pantoprazole (Protonix) 40 mg DAILY IV 04/14/17 09:00 05/14/17 08:59 04/15/17 09:57 Polyethylene Glycol (Miralax) 17 gm BEDTIME ORAL 04/14/17 21:00 05/14/17 20:59 04/14/17 20:43 Promethazine HCl (Phenergan) 25 mg Q8H PRN IV refractory nausea 04/13/17 15:45 05/13/17 15:44 Temazepam (Restoril) 15 mg HSPRN PRN ORAL Insomnia 04/13/17 21:00 04/20/17 20:59 Venlafaxine HCl (Effexor-XR) 37.5 mg DAILY ORAL 04/14/17 09:00 05/14/17 08:59 04/15/17 09:58 Assessment/Plan Assessment/Plan Abx: None Assessment: Intractable N/v Chronic Lymphedema- no evidence of cellulitis Afebrile, no leukocytosis MRSA colonized HTN CAD/AK COPD Dementia chronic lymphedema opiate dependency morbid obesity, GERD hx of recurrent UTI with ESBL SNF resident Plan: -Cotinue to monitor off abx -f/u cx -Montior CBC/BMP, temperatures -edema management -GI f/u -symptomatic treatment -aspiration precautions Thank you for this consultation. Will continue to follow along with you. Discussed with NOEL. Tegan Alfaro M.D. Apr 15, 2017 13:54
[2017-04-15 16:00] VITALS: BP 150/85
[2017-04-15 20:00] VITALS: BP 152/91
[2017-04-15] MEDS: Miralax 17gm pkt ORAL SCH (20:58)
--- NOTE | 2017-04-15 22:02 | Consultation ---
History of Present Illness General Date patient seen: Apr 14, 2017 Chief Complaint: Nausea Referring physician: RIC ALEXANDER Reason for Consultation: Vomitting Present Illness HPI the pt with hx of anxiety and depression who came in with anxiety and irritable mood, the pt has had 3 days of vomiting. and allover body pain. She pw med seeking behavior and was uncooperative with exam. Allergies: Coded Allergies: HALOPERIDOL (Verified Allergy, Unknown, 01/28/09) HALOPERIDOL LACTATE (Unverified Allergy, Unknown, 07/30/16) VANCOMYCIN (Unverified Adverse Reaction, Intermediate, Shortness of Breath , 06/26/13) Medication History Scheduled Aspirin* (Aspir-Low*), 81 MG ORAL DAILY, (Reported) Diltiazem Hcl* (Cardizem*), 60 MG ORAL EVERY 8 HOURS, (Reported) Docusate Sodium* (Colace*), 100 MG ORAL DAILY, (Reported) Ertapenem (Invanz), 1 GM IM DAILY Ertapenem Sodium* (INVanz*), 1 GM IVPB Q24H, (Reported) Escitalopram Oxalate* (Lexapro*), 10 MG ORAL DAILY, (Reported) Heparin Sodium,Porcine (Heparin Sodium), 5,000 UNIT IJ Q12HR, (Reported) Hydralazine Hcl* (Hydralazine Hcl*), 10 MG ORAL EVERY 6 HOURS, (Reported) Magnesium Hydroxide* (Milk Of Magnesia*), 30 ML ORAL DAILY, (Reported) Multivitamin With Minerals (Multivitamins With Minerals*), 1 TAB ORAL DAILY, ( Reported) Nitrofurantoin Monohyd/M-Cryst (Nitrofurantoin [place]-Mcr 100 mg), 100 MG ORAL BID , (Reported) Nitroglycerin (Nitroglycerin), 0.4 MG SL every 5 minutes, (Reported) Phenazopyridine Hcl* (Pyridium*), 200 MG ORAL THREE TIMES A DAY, (Reported) Polyethylene Glycol 3350* (Polyethylene Glycol 3350*), 17 GM ORAL DAILY, ( Reported) Quetiapine Fumarate (Quetiapine Fumarate), 100 MG ORAL BEDTIME, (Reported) Sucralfate* (Carafate*), 1 GM ORAL FOUR TIMES A DAY, (Reported) Venlafaxine Hcl* (Effexor Xr*), 37.5 MG ORAL DAILY, (Reported) Scheduled PRN Acetaminophen With Codeine (T#3) (Tylenol #3 Tab*), 1 TAB ORAL Q6H PRN for For Pain, (Reported) Acetaminophen* (Acetaminophen 325MG Tablet*), 325 MG ORAL Q4H PRN for Mild Pain/ Temp > 100.5, (Reported) Albuterol Sulfate* (Albuterol Sulfate Hhn*), 3 ML INH Q4H PRN for Shortness of Breath, (Reported) Hydrocodone Bit/Acetaminophen 5-325* ([place] 5-325 Tablet*), 1 TAB ORAL Q4H PRN for For Pain, (Reported) Lorazepam* (Ativan*), 0.5 MG ORAL Q6HR PRN for For Anxiety, (Reported) Morphine Sulfate* (Morphine Sulfate*), 2 MG IV Q4HR PRN for prn, (Reported) Ondansetron* (Zofran*), 4 MG IV Q6H PRN for Nausea & Vomiting, (Reported) Temazepam (Temazepam), 15 MG PO for insomnia, (Reported) Patient History Limited by: medical condition History Provided By: Patient, Medical Record, PMD Healthcare decision maker Resuscitation status Full Code Advanced Directive on File Review of Systems Psychiatric: Reports: prior hx, anxiety, depressed feelings, emotional problems Physical Exam General Appearance: no apparent distress, alert, overweight Neurologic: alert, oriented x 3, depressed affect Last 24 Hour Vital Signs Date Time Temp Pulse Resp B/P (MAP) Pulse Ox O2 Delivery O2 Flow Rate FiO2 04/15/17 21:03 93 152/91 04/15/17 20:00 98.4 93 20 152/91 100 Room Air 04/15/17 18:38 154/76 04/15/17 16:00 97.6 64 21 150/85 98 04/15/17 16:00 Room Air 04/15/17 14:39 67 152/87 04/15/17 12:30 150/84 04/15/17 12:00 Room Air 04/15/17 12:00 97.9 57 20 150/84 93 04/15/17 09:00 97.9 66 20 151/69 96 Nasal Cannula 2.0 04/15/17 06:50 145/89 04/15/17 06:49 68 145/89 04/15/17 04:36 98.6 68 18 145/89 96 Room Air Intake and Output 04/14/17 04/15/17 19:00 07:00 Intake Total 1260 ml 375 ml Output Total 300 ml Balance 1260 ml 75 ml Intake Oral 360 ml IV Total 900 ml 375 ml Output Urine Total 300 ml Laboratory Tests Test 04/15/17 05:00 White Blood Count 3.7 K/UL (4.8-10.8) L Red Blood Count 4.43 M/UL (4.20-5.40) Hemoglobin 11.8 G/DL (12.0-16.0) L Hematocrit 37.0 % (37.0-47.0) Mean Corpuscular Volume 84 FL (80-99) Mean Corpuscular Hemoglobin 26.6 PG (27.0-31.0) L Mean Corpuscular Hemoglobin Concent 31.9 G/DL (32.0-36.0) L Red Cell Distribution Width 14.5 % (11.6-14.8) Platelet Count 149 K/UL (150-450) L Mean Platelet Volume 6.8 FL (6.5-10.1) Neutrophils (%) (Auto) 60.1 % (45.0-75.0) Lymphocytes (%) (Auto) 26.9 % (20.0-45.0) Monocytes (%) (Auto) 9.5 % (1.0-10.0) Eosinophils (%) (Auto) 3.0 % (0.0-3.0) Basophils (%) (Auto) 0.6 % (0.0-2.0) Sodium Level 145 MMOL/L (136-145) Potassium Level 3.8 MMOL/L (3.5-5.1) Chloride Level 109 MMOL/L (98-107) H Carbon Dioxide Level 28 MMOL/L (21-32) Anion Gap 8 mmol/L (5-15) Blood Urea Nitrogen 23 mg/dL (7-18) H Creatinine 0.8 MG/DL (0.55-1.30) Estimat Glomerular Filtration Rate > 60 mL/min (>60) Glucose Level 99 MG/DL (74-106) Calcium Level 8.0 MG/DL (8.5-10.1) L Iron Level 41 ug/dL (50-175) L Total Iron Binding Capacity 300 ug/dL (250-450) Percent Iron Saturation 14 % (15-50) L Unsaturated Iron Binding 259 ug/dL (112-346) Height (Feet): 5 Height (Inches): 6.00 Weight (Pounds): 255 Medications Current Medications Medications (Trade) Dose Ordered Sig/Shiraz Route PRN Reason Start Time Stop Time Status Last Admin Dose Admin Acetaminophen (Tylenol) 650 mg Q4H PRN ORAL T>100.5 04/13/17 15:45 05/13/17 15:44 Al Hydroxide/Mg Hydroxide (Mylanta II) 30 ml Q6H PRN ORAL dyspepsia 04/13/17 15:45 05/13/17 15:44 Aspirin (Ecotrin) 81 mg DAILY ORAL 04/14/17 09:00 05/14/17 08:59 04/15/17 09:58 Clonazepam (KlonoPIN) 1 mg BEDTIME ORAL 04/15/17 21:00 04/22/17 20:59 04/15/17 20:58 Dextrose (Dextrose 50%) STAT PRN IV Hypoglycemia 04/13/17 15:45 05/13/17 15:44 Dextrose/Sodium Chloride 1,000 ml @ 75 mls/hr [id number] IV 04/13/17 16:00 05/13/17 15:59 04/15/17 20:59 Diltiazem HCl (Cardizem) 60 mg EVERY 8 HOURS ORAL 04/13/17 22:00 05/13/17 21:59 04/15/17 21:03 Diphenhydramine HCl (Benadryl) 25 mg Q6H PRN ORAL Itching/Pruritis 04/13/17 15:45 05/13/17 15:44 Docusate Sodium (Colace) 100 mg THREE TIMES A DAY ORAL 04/14/17 13:00 05/14/17 12:59 04/15/17 18:37 Escitalopram Oxalate (Lexapro) 20 mg DAILY ORAL 04/16/17 09:00 05/16/17 08:59 Heparin Sodium (Porcine) (Heparin 5000 units/ml) 5,000 units EVERY 12 HOURS SUBQ 04/13/17 21:00 05/13/17 20:59 04/14/17 20:51 Hydralazine HCl (Apresoline) 10 mg EVERY 6 HOURS ORAL 04/13/17 18:00 05/13/17 17:59 04/15/17 18:38 Lorazepam (Ativan 2mg/ml 1ml) 1 mg Q4H PRN IV agitation 04/13/17 15:45 04/20/17 15:44 Morphine Sulfate (Morphine Sulfate) 2 mg Q4H PRN IVP Severe Pain (Pain Scale 7-10) 04/13/17 15:45 04/20/17 15:44 04/15/17 21:10 Nitroglycerin (Ntg) 0.4 mg Q5M X 3 DOSES PRN SL Prn Chest Pain 04/13/17 15:45 05/13/17 15:44 Ondansetron HCl (Zofran) 4 mg Q6H PRN IVP Nausea & Vomiting 04/13/17 16:00 05/13/17 15:59 04/15/17 15:47 Pantoprazole (Protonix) 40 mg DAILY IV 04/14/17 09:00 05/14/17 08:59 04/15/17 09:57 Polyethylene Glycol (Miralax) 17 gm BEDTIME ORAL 04/14/17 21:00 05/14/17 20:59 04/15/17 20:58 Promethazine HCl (Phenergan) 25 mg Q8H PRN IV refractory nausea 04/13/17 15:45 05/13/17 15:44 Temazepam (Restoril) 15 mg HSPRN PRN ORAL Insomnia 04/13/17 21:00 04/20/17 20:59 Assessment/Plan Status: stable, progressing Assessment/Plan depression anxiety -increase lexapro 20mg qam -dc effexor -start klonopin 1mg qhs Harris Ballesteros M.D. Apr 15, 2017 22:02
--- NOTE | 2017-04-15 22:03 | General Progress Note ---
Assessment/Plan Status: stable Assessment/Plan depression anxiety -lexapro 20mg qam -klonopin 1mg qhs Subjective Date patient seen: Apr 15, 2017 Neurologic/Psychiatric: Reports: anxiety, depressed, emotional problems Allergies: Coded Allergies: HALOPERIDOL (Verified Allergy, Unknown, 01/28/09) HALOPERIDOL LACTATE (Unverified Allergy, Unknown, 07/30/16) VANCOMYCIN (Unverified Adverse Reaction, Intermediate, Shortness of Breath , 06/26/13) Objective Last 24 Hour Vital Signs Date Time Temp Pulse Resp B/P (MAP) Pulse Ox O2 Delivery O2 Flow Rate FiO2 04/15/17 21:03 93 152/91 04/15/17 20:00 98.4 93 20 152/91 100 Room Air 04/15/17 18:38 154/76 04/15/17 16:00 97.6 64 21 150/85 98 04/15/17 16:00 Room Air 04/15/17 14:39 67 152/87 04/15/17 12:30 150/84 04/15/17 12:00 Room Air 04/15/17 12:00 97.9 57 20 150/84 93 04/15/17 09:00 97.9 66 20 151/69 96 Nasal Cannula 2.0 04/15/17 06:50 145/89 04/15/17 06:49 68 145/89 04/15/17 04:36 98.6 68 18 145/89 96 Room Air Intake and Output 04/14/17 04/15/17 19:00 07:00 Intake Total 1260 ml 375 ml Output Total 300 ml Balance 1260 ml 75 ml Intake Oral 360 ml IV Total 900 ml 375 ml Output Urine Total 300 ml Laboratory Tests 04/15/17 05:00: White Blood Count 3.7L, Red Blood Count 4.43, Hemoglobin 11.8L, Hematocrit 37.0 , Mean Corpuscular Volume 84, Mean Corpuscular Hemoglobin 26.6L, Mean Corpuscular Hemoglobin Concent 31.9L, Red Cell Distribution Width 14.5, Platelet Count 149L, Mean Platelet Volume 6.8, Neutrophils (%) (Auto) 60.1, Lymphocytes (%) (Auto) 26.9, Monocytes (%) (Auto) 9.5, Eosinophils (%) (Auto) 3.0, Basophils (%) (Auto) 0.6, Sodium Level 145, Potassium Level 3.8, Chloride Level 109H, Carbon Dioxide Level 28, Anion Gap 8, Blood Urea Nitrogen 23H, Creatinine 0.8, Estimat Glomerular Filtration Rate > 60, Glucose Level 99, Calcium Level 8.0L, Iron Level 41L, Total Iron Binding Capacity 300, Percent Iron Saturation 14L, Unsaturated Iron Binding 259 Height (Feet): 5 Height (Inches): 6.00 Weight (Pounds): 255 Neurologic: alert, oriented x 3, responsive, depressed affect Harris Ballesteros M.D. Apr 15, 2017 22:03
[2017-04-16] VITALS: BP 141/88
[2017-04-16] MEDS: Morphine Sulfate 2mg/ml Inj IVP PRN ×5 (01:20→17:51)
[2017-04-16 04:00] VITALS: BP 141/77
[2017-04-16] MEDS: dilTIAZem HCl 60mg tab ORAL SCH ×3 (05:15→21:29)
[2017-04-16] MEDS: HydrALAZINE 10mg Tab ORAL SCH ×3 (05:15→18:00)
[2017-04-16 06:14] LABS: BASOPHILS % (AUTO) 0.9 % (0.0-2.0); EOSINOPHILS % (AUTO) 4.6 % (0.0-3.0); HEMATOCRIT 33.6 % (37.0-47.0); HEMOGLOBIN 10.6 G/DL (12.0-16.0); LYMPHOCYTES % (AUTO) 36.8 % (20.0-45.0); MEAN CORPUSCULAR VOLUME 83 FL (80-99); MONOCYTES % (AUTO) 10.3 % (1.0-10.0); NEUTROPHILS % (AUTO) 47.4 % (45.0-75.0); PLATELET COUNT 130 K/UL (150-450); RED BLOOD COUNT 4.05 M/UL (4.20-5.40); RED CELL DISTRIBUTION WIDTH 14.1 % (11.6-14.8); WHITE BLOOD COUNT 3.8 K/UL (4.8-10.8)
[2017-04-16 06:32] LABS: ANION GAP 4 mmol/L (5-15); BLOOD UREA NITROGEN 27 mg/dL (7-18); CALCIUM 7.5 MG/DL (8.5-10.1); CARBON DIOXIDE 30 MMOL/L (21-32); CHLORIDE 108 MMOL/L (98-107); POTASSIUM 3.8 MMOL/L (3.5-5.1); SODIUM 142 MMOL/L (136-145)
[2017-04-16 07:57] VITALS: BP 141/80
[2017-04-16] MEDS: Heparin 5000 units/ml inj SUBQ SCH ×2 (09:00→21:00)
[2017-04-16] MEDS: Pantoprazole Inj IV SCH (09:15)
[2017-04-16] MEDS: Aspirin EC 81mg tab ORAL SCH (09:15)
[2017-04-16] MEDS: Docusate 100mg cap ORAL SCH ×3 (09:15→17:49)
[2017-04-16] MEDS: D5 1/2NS 1,000 ML IV SCH (10:40)
[2017-04-16] MEDS ORDERED: Potassium Chloride 40 MEQ in Sodium Chloride 500ML 550 ML IVPB ONE (11:30)
--- NOTE | 2017-04-16 11:41 | Infectious Diseases Prog Note ---
Assessment/Plan Assessment/Plan Assessment: Intractable N/v improving Chronic Lymphedema- no evidence of cellulitis Afebrile, no leukocytosis MRSA and VRE colonized HTN CAD/CA COPD Dementia chronic lymphedema opiate dependency morbid obesity, GERD hx of recurrent UTI with ESBL SNF resident Plan: -Cotinue to monitor off abx -f/u cx -Montior CBC/BMP, temperatures -edema management -GI f/u -symptomatic treatment -aspiration precautions Subjective Constitutional: Denies: no symptoms, fever, chills, fatigue, anorexia, drenching sweats, other Allergies: Coded Allergies: HALOPERIDOL (Verified Allergy, Unknown, 01/28/09) HALOPERIDOL LACTATE (Unverified Allergy, Unknown, 07/30/16) VANCOMYCIN (Unverified Adverse Reaction, Intermediate, Shortness of Breath , 06/26/13) Objective Vital Signs Last 24 Hour Vital Signs Date Time Temp Pulse Resp B/P (MAP) Pulse Ox O2 Delivery O2 Flow Rate FiO2 04/16/17 07:57 97.9 61 21 141/80 97 Nasal Cannula 2.0 04/16/17 05:45 97.3 04/16/17 05:15 141/77 04/16/17 05:15 66 141/77 04/16/17 04:00 97.3 66 20 141/77 96 Room Air 04/16/17 00:00 97.3 66 20 141/88 97 Room Air 04/15/17 23:45 141/88 04/15/17 21:03 93 152/91 04/15/17 20:00 98.4 93 20 152/91 100 Room Air 04/15/17 18:38 154/76 04/15/17 16:00 97.6 64 21 150/85 98 04/15/17 16:00 Room Air 04/15/17 14:39 67 152/87 04/15/17 12:30 150/84 04/15/17 12:00 Room Air 04/15/17 12:00 97.9 57 20 150/84 93 Height (Feet): 5 Height (Inches): 6.00 Weight (Pounds): 255 HEENT: anicteric Respiratory/Chest: normal breath sounds Cardiovascular: regular rhythm Abdomen: no organomegaly Microbiology Date/Time Source Procedure Growth Status 04/13/17 18:10 Nasal Nares Left MRSA Culture - Final Staphylococcus Aureus - Mrsa Complete 04/13/17 18:10 Rectum VRE Culture - Final Enterococcus Faecium - Vre Enterococcus Faecalis - Vre Complete Laboratory Tests Test 04/16/17 04:45 White Blood Count 3.8 K/UL (4.8-10.8) L Red Blood Count 4.05 M/UL (4.20-5.40) L Hemoglobin 10.6 G/DL (12.0-16.0) L Hematocrit 33.6 % (37.0-47.0) L Mean Corpuscular Volume 83 FL (80-99) Mean Corpuscular Hemoglobin 26.2 PG (27.0-31.0) L Mean Corpuscular Hemoglobin Concent 31.6 G/DL (32.0-36.0) L Red Cell Distribution Width 14.1 % (11.6-14.8) Platelet Count 130 K/UL (150-450) L Mean Platelet Volume 6.9 FL (6.5-10.1) Neutrophils (%) (Auto) 47.4 % (45.0-75.0) Lymphocytes (%) (Auto) 36.8 % (20.0-45.0) Monocytes (%) (Auto) 10.3 % (1.0-10.0) H Eosinophils (%) (Auto) 4.6 % (0.0-3.0) H Basophils (%) (Auto) 0.9 % (0.0-2.0) Sodium Level 142 MMOL/L (136-145) Potassium Level 3.8 MMOL/L (3.5-5.1) Chloride Level 108 MMOL/L (98-107) H Carbon Dioxide Level 30 MMOL/L (21-32) Anion Gap 4 mmol/L (5-15) L Blood Urea Nitrogen 27 mg/dL (7-18) H Creatinine 1.0 MG/DL (0.55-1.30) Estimat Glomerular Filtration Rate 55.8 mL/min (>60) Glucose Level 95 MG/DL (74-106) Calcium Level 7.5 MG/DL (8.5-10.1) L Current Medications Medications (Trade) Dose Ordered Sig/Shiraz Route PRN Reason Start Time Stop Time Status Last Admin Dose Admin Acetaminophen (Tylenol) 650 mg Q4H PRN ORAL T>100.5 04/13/17 15:45 05/13/17 15:44 Al Hydroxide/Mg Hydroxide (Mylanta II) 30 ml Q6H PRN ORAL dyspepsia 04/13/17 15:45 05/13/17 15:44 Aspirin (Ecotrin) 81 mg DAILY ORAL 04/14/17 09:00 05/14/17 08:59 04/16/17 09:15 Chlorhexidine Gluconate (Jessie-Hex 2%) 1 applic DAILY@2000 TOPIC 04/16/17 12:00 05/16/17 11:59 Clonazepam (KlonoPIN) 1 mg BEDTIME ORAL 04/15/17 21:00 04/22/17 20:59 04/15/17 20:58 Dextrose (Dextrose 50%) STAT PRN IV Hypoglycemia 04/13/17 15:45 05/13/17 15:44 Dextrose/Sodium Chloride 1,000 ml @ 75 mls/hr [id number] IV 04/13/17 16:00 05/13/17 15:59 04/15/17 20:59 Diltiazem HCl (Cardizem) 60 mg EVERY 8 HOURS ORAL 04/13/17 22:00 05/13/17 21:59 04/16/17 05:15 Diphenhydramine HCl (Benadryl) 25 mg Q6H PRN ORAL Itching/Pruritis 04/13/17 15:45 05/13/17 15:44 Docusate Sodium (Colace) 100 mg THREE TIMES A DAY ORAL 04/14/17 13:00 05/14/17 12:59 04/16/17 09:15 Escitalopram Oxalate (Lexapro) 20 mg DAILY ORAL 04/16/17 09:00 05/16/17 08:59 04/16/17 09:15 Heparin Sodium (Porcine) (Heparin 5000 units/ml) 5,000 units EVERY 12 HOURS SUBQ 04/13/17 21:00 05/13/17 20:59 04/14/17 20:51 Hydralazine HCl (Apresoline) 10 mg EVERY 6 HOURS ORAL 04/13/17 18:00 05/13/17 17:59 04/16/17 05:15 Lorazepam (Ativan 2mg/ml 1ml) 1 mg Q4H PRN IV agitation 04/13/17 15:45 04/20/17 15:44 Morphine Sulfate (Morphine Sulfate) 2 mg Q4H PRN IVP Severe Pain (Pain Scale 7-10) 04/13/17 15:45 04/20/17 15:44 04/16/17 09:17 Nitroglycerin (Ntg) 0.4 mg Q5M X 3 DOSES PRN SL Prn Chest Pain 04/13/17 15:45 05/13/17 15:44 Ondansetron HCl (Zofran) 4 mg Q6H PRN IVP Nausea & Vomiting 04/13/17 16:00 05/13/17 15:59 04/16/17 09:15 Pantoprazole (Protonix) 40 mg DAILY IV 04/14/17 09:00 05/14/17 08:59 04/16/17 09:15 Polyethylene Glycol (Miralax) 17 gm BEDTIME ORAL 04/14/17 21:00 05/14/17 20:59 04/15/17 20:58 Promethazine HCl (Phenergan) 25 mg Q8H PRN IV refractory nausea 04/13/17 15:45 05/13/17 15:44 Temazepam (Restoril) 15 mg HSPRN PRN ORAL Insomnia 04/13/17 21:00 04/20/17 20:59 PINA SALTER M.D. Apr 16, 2017 11:41
--- NOTE | 2017-04-16 13:08 | Pulmonology Progress Note ---
Assessment/Plan Assessment/Plan ASSESSMENT Intractable n/v possible gastroenteritis opiate dependency abdominal pain GERD HTN urgency COPD CAD/WI chronic lymphedema BLE ( r/o cellulitis -negative ) morbid obesity hx of recurrent UTI PLAN OF CARE [facility] floor IVF tolerates diet a/emetic prn abdominal US GI follows PPI Bowel regimen anemia workup c/w anemia of chronic disease get stool OB outpt GI procedure as per GI BP management with CCB and Hydralazine, optimize further as needed pain management, decrease narcotic use SNF meds resumed O2 HH prn ID follows, no cellulitis, monitor off abx PT eval DNR/DNI status 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 discussed and evaluated by supervising physician Subjective Allergies: Coded Allergies: HALOPERIDOL (Verified Allergy, Unknown, 01/28/09) HALOPERIDOL LACTATE (Unverified Allergy, Unknown, 07/30/16) VANCOMYCIN (Unverified Adverse Reaction, Intermediate, Shortness of Breath , 06/26/13) Subjective tolerates diet seen by [facility] feeling depressed and weak Objective Last 24 Hour Vital Signs Date Time Temp Pulse Resp B/P (MAP) Pulse Ox O2 Delivery O2 Flow Rate FiO2 04/16/17 08:00 Nasal Cannula 2.0 04/16/17 07:57 97.9 61 21 141/80 97 Nasal Cannula 2.0 04/16/17 05:45 97.3 04/16/17 05:15 141/77 04/16/17 05:15 66 141/77 04/16/17 04:00 97.3 66 20 141/77 96 Room Air 04/16/17 00:00 97.3 66 20 141/88 97 Room Air 04/15/17 23:45 141/88 04/15/17 21:03 93 152/91 04/15/17 20:00 98.4 93 20 152/91 100 Room Air 04/15/17 18:38 154/76 04/15/17 16:00 97.6 64 21 150/85 98 04/15/17 16:00 Room Air 04/15/17 14:39 67 152/87 Intake and Output 04/15/17 04/16/17 19:00 07:00 Intake Total 750 ml 240 ml Balance 750 ml 240 ml Intake Oral 750 ml 240 ml # Voids 4 2 Objective General Appearance: no acute distress, other - A/A/O x 3 obese female in NAD HEENT: normocephalic, atraumatic, anicteric, mucous membranes moist Respiratory/Chest: lungs clear, no respiratory distress, no accessory muscle use Cardiovascular: normal rate, no JVD, LUE PICC intact Abdomen: normal bowel sounds, soft, non tender - obese Extremities: other - edema +2 BLE with chronic lymphedema Neurologic/Psychiatric: abnormal gait - with walker , alert, oriented x 3, responsive Microbiology Date/Time Source Procedure Growth Status 04/13/17 18:10 Nasal Nares Left MRSA Culture - Final Staphylococcus Aureus - Mrsa Complete 04/13/17 18:10 Rectum VRE Culture - Final Enterococcus Faecium - Vre Enterococcus Faecalis - Vre Complete Laboratory Tests 04/16/17 04:45: White Blood Count 3.8L, Red Blood Count 4.05L, Hemoglobin 10.6L, Hematocrit 33.6L, Mean Corpuscular Volume 83, Mean Corpuscular Hemoglobin 26.2L, Mean Corpuscular Hemoglobin Concent 31.6L, Red Cell Distribution Width 14.1, Platelet Count 130L, Mean Platelet Volume 6.9, Neutrophils (%) (Auto) 47.4, Lymphocytes (%) (Auto) 36.8, Monocytes (%) (Auto) 10.3H, Eosinophils (%) (Auto) 4.6H, Basophils (%) (Auto) 0.9, Sodium Level 142, Potassium Level 3.8, Chloride Level 108H, Carbon Dioxide Level 30, Anion Gap 4L, Blood Urea Nitrogen 27H, Creatinine 1.0, Estimat Glomerular Filtration Rate 55.8, Glucose Level 95, Calcium Level 7.5L Current Medications Medications (Trade) Dose Ordered Sig/Shiraz Route PRN Reason Start Time Stop Time Status Last Admin Dose Admin Acetaminophen (Tylenol) 650 mg Q4H PRN ORAL T>100.5 04/13/17 15:45 05/13/17 15:44 Al Hydroxide/Mg Hydroxide (Mylanta II) 30 ml Q6H PRN ORAL dyspepsia 04/13/17 15:45 05/13/17 15:44 Aspirin (Ecotrin) 81 mg DAILY ORAL 04/14/17 09:00 05/14/17 08:59 04/16/17 09:15 Chlorhexidine Gluconate (Jessie-Hex 2%) 1 applic DAILY@1999 TOPIC 04/16/17 12:00 05/16/17 11:59 Clonazepam (KlonoPIN) 1 mg BEDTIME ORAL 04/15/17 21:00 04/22/17 20:59 04/15/17 20:58 Dextrose (Dextrose 50%) STAT PRN IV Hypoglycemia 04/13/17 15:45 05/13/17 15:44 Dextrose/Sodium Chloride 1,000 ml @ 75 mls/hr [id number] IV 04/13/17 16:00 05/13/17 15:59 04/15/17 20:59 Diltiazem HCl (Cardizem) 60 mg EVERY 8 HOURS ORAL 04/13/17 22:00 05/13/17 21:59 04/16/17 05:15 Diphenhydramine HCl (Benadryl) 25 mg Q6H PRN ORAL Itching/Pruritis 04/13/17 15:45 05/13/17 15:44 Docusate Sodium (Colace) 100 mg THREE TIMES A DAY ORAL 04/14/17 13:00 05/14/17 12:59 04/16/17 09:15 Escitalopram Oxalate (Lexapro) 20 mg DAILY ORAL 04/16/17 09:00 05/16/17 08:59 04/16/17 09:15 Heparin Sodium (Porcine) (Heparin 5000 units/ml) 5,000 units EVERY 12 HOURS SUBQ 04/13/17 21:00 05/13/17 20:59 04/14/17 20:51 Hydralazine HCl (Apresoline) 10 mg EVERY 6 HOURS ORAL 04/13/17 18:00 05/13/17 17:59 04/16/17 05:15 Lorazepam (Ativan 2mg/ml 1ml) 1 mg Q4H PRN IV agitation 04/13/17 15:45 04/20/17 15:44 Morphine Sulfate (Morphine Sulfate) 2 mg Q4H PRN IVP Severe Pain (Pain Scale 7-10) 04/13/17 15:45 04/20/17 15:44 04/16/17 09:17 Nitroglycerin (Ntg) 0.4 mg Q5M X 3 DOSES PRN SL Prn Chest Pain 04/13/17 15:45 05/13/17 15:44 Ondansetron HCl (Zofran) 4 mg Q6H PRN IVP Nausea & Vomiting 04/13/17 16:00 05/13/17 15:59 04/16/17 09:15 Pantoprazole (Protonix) 40 mg DAILY IV 04/14/17 09:00 05/14/17 08:59 04/16/17 09:15 Polyethylene Glycol (Miralax) 17 gm BEDTIME ORAL 04/14/17 21:00 05/14/17 20:59 04/15/17 20:58 Promethazine HCl (Phenergan) 25 mg Q8H PRN IV refractory nausea 04/13/17 15:45 05/13/17 15:44 Temazepam (Restoril) 15 mg HSPRN PRN ORAL Insomnia 04/13/17 21:00 04/20/17 20:59 Andrés ([facility])Luz NP Apr 16, 2017 13:08
[2017-04-16] MEDS: Dyna-Hex 2% Top Sol 2oz TOPIC SCH ×2 (13:15→20:00)
[2017-04-16 16:01] VITALS: BP 98/57
[2017-04-16 21:00] VITALS: BP 168/79
[2017-04-16] MEDS: Miralax 17gm pkt ORAL SCH (21:00)
[2017-04-16] MEDS ORDERED: D5 1/2NS 1000ml IV ONE (22:40)
[2017-04-17] VITALS: BP 163/87
[2017-04-17] MEDS: Morphine Sulfate 2mg/ml Inj IVP PRN ×4 (03:26→18:33)
[2017-04-17 04:00] VITALS: BP 163/77
[2017-04-17] MEDS: HydrALAZINE 10mg Tab ORAL SCH ×2 (05:34)
[2017-04-17] MEDS: dilTIAZem HCl 60mg tab ORAL SCH ×3 (05:34→20:57)
[2017-04-17 08:00] VITALS: BP 158/84
[2017-04-17] MEDS: Heparin 5000 units/ml inj SUBQ SCH ×2 (09:00→20:58)
[2017-04-17] MEDS: Aspirin EC 81mg tab ORAL SCH (09:08)
[2017-04-17] MEDS: Docusate 100mg cap ORAL SCH ×3 (09:08→18:33)
[2017-04-17] MEDS: Pantoprazole Inj IV SCH (09:53)
--- NOTE | 2017-04-17 11:39 | Pulmonology Progress Note ---
Assessment/Plan Assessment/Plan ASSESSMENT Intractable n/v probable gastroenteritis-resolved opiate dependency abdominal pain GERD HTN urgency -resolved COPD CAD/NC chronic lymphedema BLE ( r/o cellulitis-negative ) morbid obesity hx of recurrent UTI PLAN OF CARE MS floor IVF tolerates diet a/emetic prn abdominal US GI follows PPI Bowel regimen anemia workup c/w anemia of chronic disease get stool OB outpt GI procedure as per GI BP management with CCB and Hydralazine, optimize further as needed pain management, decrease narcotic use SNF meds resumed O2 HH prn ID follows, no cellulitis, monitor off abx PT eval DNR/DNI status dc today to SNF case discussed and evaluated by supervising physician Subjective Allergies: Coded Allergies: HALOPERIDOL (Verified Allergy, Unknown, 01/28/09) HALOPERIDOL LACTATE (Unverified Allergy, Unknown, 07/30/16) VANCOMYCIN (Unverified Adverse Reaction, Intermediate, Shortness of Breath , 06/26/13) Subjective tolerates diet seen by psych feeling depressed and weak Objective Last 24 Hour Vital Signs Date Time Temp Pulse Resp B/P (MAP) Pulse Ox O2 Delivery O2 Flow Rate FiO2 04/17/17 08:00 97.9 65 20 158/84 93 04/17/17 08:00 Nasal Cannula 04/17/17 05:34 163/77 04/17/17 05:34 62 163/77 04/17/17 04:00 97.3 62 21 163/77 95 04/17/17 00:00 163/87 04/17/17 00:00 97.5 67 21 163/87 100 04/16/17 21:29 69 168/79 04/16/17 21:00 97.8 62 21 168/79 97 04/16/17 18:00 98/57 04/16/17 16:01 Nasal Cannula 04/16/17 16:01 98.4 77 21 98/57 96 Room Air 04/16/17 13:13 141/80 04/16/17 13:13 61 141/80 Intake and Output 04/16/17 04/17/17 19:00 07:00 Intake Total 2115 ml Balance 2115 ml Intake Oral 1440 ml IV Total 675 ml # Voids 3 2 Objective General Appearance: no acute distress, other - A/A/O x 3 obese female in NAD HEENT: normocephalic, atraumatic, anicteric, mucous membranes moist Respiratory/Chest: lungs clear, no respiratory distress, no accessory muscle use Cardiovascular: normal rate, no JVD, LUE PICC intact Abdomen: normal bowel sounds, soft, non tender - obese Extremities: other - edema +2 BLE with chronic lymphedema Neurologic/Psychiatric: abnormal gait - with walker , alert, oriented x 3, responsive Current Medications Medications (Trade) Dose Ordered Sig/Shiraz Route PRN Reason Start Time Stop Time Status Last Admin Dose Admin Acetaminophen (Tylenol) 650 mg Q4H PRN ORAL T>100.5 04/13/17 15:45 05/13/17 15:44 Al Hydroxide/Mg Hydroxide (Mylanta II) 30 ml Q6H PRN ORAL dyspepsia 04/13/17 15:45 05/13/17 15:44 Aspirin (Ecotrin) 81 mg DAILY ORAL 04/14/17 09:00 05/14/17 08:59 04/17/17 09:08 Chlorhexidine Gluconate (Jessie-Hex 2%) 1 applic DAILY@2000 TOPIC 04/16/17 12:00 05/16/17 11:59 04/16/17 13:15 Clonazepam (KlonoPIN) 1 mg BEDTIME ORAL 04/15/17 21:00 04/22/17 20:59 04/16/17 21:25 Dextrose (Dextrose 50%) STAT PRN IV Hypoglycemia 04/13/17 15:45 05/13/17 15:44 Dextrose/Sodium Chloride 1,000 ml @ 75 mls/hr [id number] IV 04/13/17 16:00 05/13/17 15:59 04/15/17 20:59 Diltiazem HCl (Cardizem) 60 mg EVERY 8 HOURS ORAL 04/13/17 22:00 05/13/17 21:59 04/17/17 05:34 Diphenhydramine HCl (Benadryl) 25 mg Q6H PRN ORAL Itching/Pruritis 04/13/17 15:45 05/13/17 15:44 Docusate Sodium (Colace) 100 mg THREE TIMES A DAY ORAL 04/14/17 13:00 05/14/17 12:59 04/17/17 09:08 Escitalopram Oxalate (Lexapro) 20 mg DAILY ORAL 04/16/17 09:00 05/16/17 08:59 04/17/17 09:09 Heparin Sodium (Porcine) (Heparin 5000 units/ml) 5,000 units EVERY 12 HOURS SUBQ 04/13/17 21:00 05/13/17 20:59 04/14/17 20:51 Hydralazine HCl (Apresoline) 10 mg EVERY 6 HOURS ORAL 04/13/17 18:00 05/13/17 17:59 04/17/17 05:34 Lorazepam (Ativan 2mg/ml 1ml) 1 mg Q4H PRN IV agitation 04/13/17 15:45 04/20/17 15:44 Morphine Sulfate (Morphine Sulfate) 2 mg Q4H PRN IVP Severe Pain (Pain Scale 7-10) 04/13/17 15:45 04/20/17 15:44 04/17/17 09:09 Nitroglycerin (Ntg) 0.4 mg Q5M X 3 DOSES PRN SL Prn Chest Pain 04/13/17 15:45 05/13/17 15:44 Ondansetron HCl (Zofran) 4 mg Q6H PRN IVP Nausea & Vomiting 04/13/17 16:00 05/13/17 15:59 04/17/17 09:09 Pantoprazole (Protonix) 40 mg DAILY IV 04/14/17 09:00 05/14/17 08:59 04/17/17 09:53 Polyethylene Glycol (Miralax) 17 gm BEDTIME ORAL 04/14/17 21:00 05/14/17 20:59 04/15/17 20:58 Promethazine HCl (Phenergan) 25 mg Q8H PRN IV refractory nausea 04/13/17 15:45 05/13/17 15:44 Temazepam (Restoril) 15 mg HSPRN PRN ORAL Insomnia 04/13/17 21:00 04/20/17 20:59 Luz Bowen NP (Vanchtein) Apr 17, 2017 11:39
[2017-04-17 12:00] VITALS: BP 161/82
[2017-04-17] MEDS: D5 1/2NS 1,000 ML IV SCH ×2 (13:19)
[2017-04-17] MEDS: HydrALAZINE 25mg tab ORAL SCH ×2 (13:19→20:57)
--- NOTE | 2017-04-17 14:26 | General Progress Note ---
Assessment/Plan Status: stable, progressing Assessment/Plan depression anxiety -lexapro 20mg qam -klonopin 1mg qhs Subjective Date patient seen: Apr 16, 2017 Neurologic/Psychiatric: Reports: anxiety, depressed, emotional problems Allergies: Coded Allergies: HALOPERIDOL (Verified Allergy, Unknown, 01/28/09) HALOPERIDOL LACTATE (Unverified Allergy, Unknown, 07/30/16) VANCOMYCIN (Unverified Adverse Reaction, Intermediate, Shortness of Breath , 06/26/13) Subjective the pt is verbally abusive and has med seeking behavior. Objective Last 24 Hour Vital Signs Date Time Temp Pulse Resp B/P (MAP) Pulse Ox O2 Delivery O2 Flow Rate FiO2 04/17/17 13:19 161/82 04/17/17 13:19 63 161/82 04/17/17 12:00 97.7 63 19 161/82 97 04/17/17 08:00 97.9 65 20 158/84 93 04/17/17 08:00 Nasal Cannula 04/17/17 05:34 163/77 04/17/17 05:34 62 163/77 04/17/17 04:00 97.3 62 21 163/77 95 04/17/17 00:00 163/87 04/17/17 00:00 97.5 67 21 163/87 100 04/16/17 21:29 69 168/79 04/16/17 21:00 97.8 62 21 168/79 97 04/16/17 18:00 98/57 04/16/17 16:01 Nasal Cannula 04/16/17 16:01 98.4 77 21 98/57 96 Room Air Intake and Output 04/16/17 04/17/17 19:00 07:00 Intake Total 2115 ml Balance 2115 ml Intake Oral 1440 ml IV Total 675 ml # Voids 3 2 Height (Feet): 5 Height (Inches): 6.00 Weight (Pounds): 255 General Appearance: no apparent distress, alert, agitated, obese Neurologic: alert, oriented x 3, responsive, depressed affect Harris Ballesteros M.D. Apr 17, 2017 14:26
[2017-04-17 16:00] VITALS: BP 163/91
[2017-04-17] MEDS ORDERED: NS 275ml ONE (17:00)
[2017-04-17] MEDS ORDERED: Tubing IV Blood Pump IV ONE (17:00)
[2017-04-17] MEDS ORDERED: D5 1/2NS 1000ml IV ONE (17:00)
[2017-04-17 20:00] VITALS: BP 164/87
[2017-04-17] MEDS: Dyna-Hex 2% Top Sol 2oz TOPIC SCH (20:00)
[2017-04-17] MEDS: Miralax 17gm pkt ORAL SCH (20:59)
[2017-04-18] VITALS: BP 160/77
[2017-04-18] MEDS: D5 1/2NS 1,000 ML IV SCH (02:40)
[2017-04-18] MEDS: Morphine Sulfate 2mg/ml Inj IVP PRN ×3 (02:43→12:19)
[2017-04-18 04:00] VITALS: BP 160/84
[2017-04-18] MEDS: HydrALAZINE 25mg tab ORAL SCH ×2 (06:08→12:18)
[2017-04-18] MEDS: dilTIAZem HCl 60mg tab ORAL SCH ×2 (06:09→12:18)
[2017-04-18] MEDS: Docusate 100mg cap ORAL SCH ×2 (08:13→13:00)
[2017-04-18] MEDS: Pantoprazole Inj IV SCH (08:13)
[2017-04-18] MEDS: Heparin 5000 units/ml inj SUBQ SCH (08:14)
[2017-04-18] MEDS: Aspirin EC 81mg tab ORAL SCH (08:14)
[2017-04-18 09:00] VITALS: BP 135/72
--- NOTE | 2017-04-18 11:02 | Infectious Diseases Prog Note ---
Assessment/Plan Assessment/Plan Intractable N/v improving Chronic Lymphedema- no evidence of cellulitis Afebrile, no leukocytosis MRSA and VRE colonized HTN CAD/AR COPD Dementia chronic lymphedema opiate dependency morbid obesity, GERD hx of recurrent UTI with ESBL SNF resident Plan: -Cotinue to monitor off abx -Montior CBC/BMP, temperatures -edema management -GI f/u -symptomatic treatment -aspiration precautions Subjective Allergies: Coded Allergies: HALOPERIDOL (Verified Allergy, Unknown, 01/28/09) HALOPERIDOL LACTATE (Unverified Allergy, Unknown, 07/30/16) VANCOMYCIN (Unverified Adverse Reaction, Intermediate, Shortness of Breath , 06/26/13) Subjective afebrile no leukocytosis Objective Vital Signs Last 24 Hour Vital Signs Date Time Temp Pulse Resp B/P (MAP) Pulse Ox O2 Delivery O2 Flow Rate FiO2 04/18/17 06:09 59 160/84 04/18/17 06:08 160/84 04/18/17 04:00 97.5 59 18 160/84 94 Room Air 04/18/17 00:00 98.0 60 18 160/77 95 Room Air 04/17/17 20:57 164/87 04/17/17 20:57 65 164/87 04/17/17 20:00 98.2 65 20 164/87 95 Room Air 04/17/17 16:00 Nasal Cannula 04/17/17 16:00 98.1 61 20 163/91 96 04/17/17 13:19 161/82 04/17/17 13:19 63 161/82 04/17/17 12:00 Nasal Cannula 04/17/17 12:00 97.7 63 19 161/82 97 Height (Feet): 5 Height (Inches): 6.00 Weight (Pounds): 255 Objective General Appearance: obese, no distress Lines, tubes and drains: peripheral HEENT: normocephalic, atraumatic Neck: non-tender, normal alignment Respiratory/Chest: chest wall non-tender, lungs clear Breasts: no masses Cardiovascular/Chest: normal peripheral pulses, normal rate, RRR Abdomen: non tender, ND, BS+ Extremities: normal range of motion, chronic B/L lymphedema, chronic edema/ venous stasis changes, no evidence of cellulitis 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 Current Medications Medications (Trade) Dose Ordered Sig/Shiraz Route PRN Reason Start Time Stop Time Status Last Admin Dose Admin Acetaminophen (Tylenol) 650 mg Q4H PRN ORAL T>100.5 04/13/17 15:45 05/13/17 15:44 Al Hydroxide/Mg Hydroxide (Mylanta II) 30 ml Q6H PRN ORAL dyspepsia 04/13/17 15:45 05/13/17 15:44 Aspirin (Ecotrin) 81 mg DAILY ORAL 04/14/17 09:00 05/14/17 08:59 04/18/17 08:14 Chlorhexidine Gluconate (Jessie-Hex 2%) 1 applic DAILY@2000 TOPIC 04/16/17 12:00 05/16/17 11:59 04/16/17 13:15 Clonazepam (KlonoPIN) 1 mg BEDTIME ORAL 04/15/17 21:00 04/22/17 20:59 04/17/17 20:56 Dextrose (Dextrose 50%) STAT PRN IV Hypoglycemia 04/13/17 15:45 05/13/17 15:44 Dextrose/Sodium Chloride 1,000 ml @ 75 mls/hr [id number] IV 04/13/17 16:00 05/13/17 15:59 04/17/17 13:19 Diltiazem HCl (Cardizem) 60 mg EVERY 8 HOURS ORAL 04/13/17 22:00 05/13/17 21:59 04/18/17 06:09 Diphenhydramine HCl (Benadryl) 25 mg Q6H PRN ORAL Itching/Pruritis 04/13/17 15:45 05/13/17 15:44 Docusate Sodium (Colace) 100 mg THREE TIMES A DAY ORAL 04/14/17 13:00 05/14/17 12:59 04/18/17 08:13 Escitalopram Oxalate (Lexapro) 20 mg DAILY ORAL 04/16/17 09:00 05/16/17 08:59 04/18/17 08:13 Heparin Sodium (Porcine) (Heparin 5000 units/ml) 5,000 units EVERY 12 HOURS SUBQ 04/13/17 21:00 05/13/17 20:59 04/14/17 20:51 Hydralazine HCl (Apresoline) 25 mg Q8HR ORAL 04/17/17 13:00 05/17/17 12:59 04/18/17 06:08 Lorazepam (Ativan 2mg/ml 1ml) 1 mg Q4H PRN IV agitation 04/13/17 15:45 04/20/17 15:44 Morphine Sulfate (Morphine Sulfate) 2 mg Q4H PRN IVP Severe Pain (Pain Scale 7-10) 04/13/17 15:45 04/20/17 15:44 04/18/17 08:15 Nitroglycerin (Ntg) 0.4 mg Q5M X 3 DOSES PRN SL Prn Chest Pain 04/13/17 15:45 05/13/17 15:44 Ondansetron HCl (Zofran) 4 mg Q6H PRN IVP Nausea & Vomiting 04/13/17 16:00 05/13/17 15:59 04/18/17 06:09 Pantoprazole (Protonix) 40 mg DAILY IV 04/14/17 09:00 05/14/17 08:59 04/18/17 08:13 Polyethylene Glycol (Miralax) 17 gm BEDTIME ORAL 04/14/17 21:00 05/14/17 20:59 04/15/17 20:58 Promethazine HCl (Phenergan) 25 mg Q8H PRN IV refractory nausea 04/13/17 15:45 05/13/17 15:44 Temazepam (Restoril) 15 mg HSPRN PRN ORAL Insomnia 04/13/17 21:00 04/20/17 20:59 Tegan Alfaro M.D. Apr 18, 2017 11:02
[2017-04-18 12:18] VITALS: BP 135/72
--- NOTE | 2017-04-18 12:22 | GI Progress Note ---
Assessment/Plan Problems: (1) Intractable nausea and vomiting ICD Codes: R11.2 - Nausea with vomiting, unspecified SNOMED: 862595279 (2) Obesity ICD Codes: E66.9 - Obesity, unspecified SNOMED: 585135298 (3) Abdominal pain ICD Codes: R10.9 - Abdominal pain SNOMED: 27000449 (4) Opiate dependence (5) Emesis ICD Codes: R11.10 - Vomiting, unspecified SNOMED: 353347208 (6) Nausea and vomiting in adult patient ICD Codes: R11.2 - Nausea with vomiting, unspecified SNOMED: 62513272 (7) GERD (gastroesophageal reflux disease) ICD Codes: K21.9 - Gastro-esophageal reflux disease without esophagitis SNOMED: 272563487 Status: stable Status Narrative Discussed with Dr. Victoria. Assessment/Plan symptomatic treatment adv diet OB stool r/o GI bleed ppi daily bowel regime >> miralax + colace ATC, dulcolax prn >> will add prune juice to diet zofran prn, reglan for persistent vomiting decrease narcotic use fu labs outpatient GI procedures Subjective Subjective nausea has improved, wishes to adv diet. c/o of constipation Objective Last 24 Hour Vital Signs Date Time Temp Pulse Resp B/P (MAP) Pulse Ox O2 Delivery O2 Flow Rate FiO2 04/18/17 12:18 135/72 04/18/17 12:18 65 135/72 04/18/17 09:00 97.3 65 20 135/72 94 Nasal Cannula 3.0 04/18/17 06:09 59 160/84 04/18/17 06:08 160/84 04/18/17 04:00 97.5 59 18 160/84 94 Room Air 04/18/17 00:00 98.0 60 18 160/77 95 Room Air 04/17/17 20:57 164/87 04/17/17 20:57 65 164/87 04/17/17 20:00 98.2 65 20 164/87 95 Room Air 04/17/17 16:00 Nasal Cannula 04/17/17 16:00 98.1 61 20 163/91 96 04/17/17 13:19 161/82 04/17/17 13:19 63 161/82 Intake and Output 04/17/17 04/18/17 19:00 07:00 Intake Total 1350 ml 625 ml Balance 1350 ml 625 ml Intake Oral 1200 ml 400 ml IV Total 150 ml 225 ml # Voids 5 2 Height (Feet): 5 Height (Inches): 6.00 Weight (Pounds): 255 General Appearance: WD/WN, no apparent distress, alert, morbidly obese Cardiovascular: normal rate Respiratory/Chest: normal breath sounds, no respiratory distress Abdominal Exam: normal bowel sounds, non tender, soft Extremities: non-tender Daniela Winston N.P. Apr 18, 2017 12:22
--- NOTE | 2017-04-18 23:26 | Pulmonology Progress Note ---
Assessment/Plan Problems: (1) Intractable nausea and vomiting (2) chronic lymphedema (3) Infection due to ESBL-producing Escherichia coli (4) Chronic ulcer of leg (5) Obesity Assessment/Plan f/uGI recommendation anemia w/u symtomatic treatment dc planning Subjective ROS Limited/Unobtainable: No Allergies: Coded Allergies: HALOPERIDOL (Verified Allergy, Unknown, 01/28/09) HALOPERIDOL LACTATE (Unverified Allergy, Unknown, 07/30/16) VANCOMYCIN (Unverified Adverse Reaction, Intermediate, Shortness of Breath , 06/26/13) Objective Last 24 Hour Vital Signs Date Time Temp Pulse Resp B/P (MAP) Pulse Ox O2 Delivery O2 Flow Rate FiO2 04/18/17 13:05 97.3 04/18/17 12:18 135/72 04/18/17 12:18 65 135/72 04/18/17 09:00 97.3 65 20 135/72 94 Nasal Cannula 3.0 04/18/17 06:09 59 160/84 04/18/17 06:08 160/84 04/18/17 04:00 97.5 59 18 160/84 94 Room Air 04/18/17 00:00 98.0 60 18 160/77 95 Room Air Intake and Output 04/17/17 04/18/17 19:00 07:00 Intake Total 1350 ml 625 ml Balance 1350 ml 625 ml Intake Oral 1200 ml 400 ml IV Total 150 ml 225 ml # Voids 5 2 Objective General Appearance: cachetic Lines, tubes and drains: peripheral HEENT: normocephalic, atraumatic Neck: non-tender, normal alignment Respiratory/Chest: chest wall non-tender, lungs clear Breasts: no masses Cardiovascular/Chest: normal peripheral pulses, normal rate Abdomen: non tender Genitourinary/Rectal: normal genital exam Extremities: normal range of motion, massive edema Skin Exam: normal pigmentation 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
--- NOTE | 2017-04-20 09:43 | Progress Note ---
DATE: 04/18/2017 SUBJECTIVE: The patient continues to be belligerent and abusive towards the staff. Poor insight and judgment. pain seeking behavior and is paranoid. OBJECTIVE: MENTAL STATUS EXAMINATION: The patient is alert, oriented x self, place. Mood is irritable and angry. Affect is constricted. Congruent with mood. Thought process is concrete. Thought content, no suicidal or homicidal ideation. ASSESSMENT AND PLAN: The patient will be continued on the current medication and educated her in regards to taking medication and follow up with a psychiatrist after the discharge. The patient is uncooperative and verbally abusive. Harris Ballesteros M.D. DR: Eric JOB#: [id number] CC:
--- NOTE | 2017-04-20 14:19 | Discharge Summary ---
Discharge Summary Hospital Course Date of Admission Apr 13, 2017 at 15:13 Date of Discharge Apr 18, 2017 at 13:22 Admitting Diagnosis intractable vomiting HPI Charisse Couch is a 66 year old female who was admitted on Apr 13, 2017 at 15:13 for Interactable Vomiting Hospital Course dc summary#[id number] Discharge Medications Continued Medications: Acetaminophen With Codeine (T#3) (Tylenol #3 Tab*) Y Tab 1 TAB ORAL Q6H PRN for For Pain, TAB Acetaminophen* (Acetaminophen 325MG Tablet*) 325 Mg Tablet 325 MG ORAL Q4H PRN for Mild Pain/Temp > 100.5, TAB Albuterol Sulfate* (Albuterol Sulfate Hhn*) 2.5 Mg/3 Ml Vial.neb 3 ML INH Q4H PRN for Shortness of Breath, EA Aspirin* (Aspir-Low*) 81 Mg Tablet.dr 81 MG ORAL DAILY, TAB Diltiazem Hcl* (Cardizem*) 60 Mg Tablet 60 MG ORAL EVERY 8 HOURS, TAB Docusate Sodium* (Colace*) 100 Mg Capsule 100 MG ORAL DAILY, CAP Escitalopram Oxalate* (Lexapro*) 10 Mg Tablet 10 MG ORAL DAILY, TAB Hydralazine Hcl* (Hydralazine Hcl*) 10 Mg Tablet 10 MG ORAL EVERY 6 HOURS, TAB Lorazepam* (Ativan*) 0.5 Mg Tablet 0.5 MG ORAL Q6HR PRN for For Anxiety, TAB Magnesium Hydroxide* (Milk Of Magnesia*) 400 Mg/5 Ml Oral.susp 30 ML ORAL DAILY, ML Multivitamin With Minerals (Multivitamins With Minerals*) 1 Each Tablet 1 TAB ORAL DAILY, TAB Polyethylene Glycol 3350* (Polyethylene Glycol 3350*) 17 Gm Powd.pack 17 GM ORAL DAILY for Constipation, PACKET Sucralfate* (Carafate*) 1 Gm Tablet 1 GM ORAL FOUR TIMES A DAY, TAB Temazepam (Temazepam) 22.5 Mg Capsule 15 MG PO PRN for insomnia, CAP Discontinued Medications: Ertapenem (Invanz) 1 Gm Vial 1 GM IM DAILY for 3 Days, VIAL Ertapenem Sodium* (INVanz*) 1 Gm Vial.port 1 GM IVPB Q24H for 8 Days, VIAL Heparin Sodium,Porcine (Heparin Sodium) 5,000 Unit/1 Ml Cartridge 5000 UNIT IJ Q12HR Hydrocodone Bit/Acetaminophen 5-325* ([place] 5-325 Tablet*) 1 Each Tablet 1 TAB ORAL Q4H PRN for For Pain, TAB Morphine Sulfate* (Morphine Sulfate*) 2 Mg/1 Ml Cartridge 2 MG IV Q4HR PRN for prn, EA Nitrofurantoin Monohyd/M-Cryst (Nitrofurantoin [place]-Mcr 100 mg) 100 Mg Capsule 100 MG ORAL BID, CAP Nitroglycerin (Nitroglycerin) 0.4 Mg Tab.subl 0.4 MG SL every 5 minutes for chest pain, TAB Ondansetron* (Zofran*) 4 Mg/2 Ml Vial 4 MG IV Q6H PRN for Nausea & Vomiting, VIAL Phenazopyridine Hcl* (Pyridium*) 200 Mg Tablet 200 MG ORAL THREE TIMES A DAY, #14 TAB 0 Refills Quetiapine Fumarate (Quetiapine Fumarate) 300 Mg Tablet 100 MG ORAL BEDTIME, TAB Venlafaxine Hcl* (Effexor Xr*) 37.5 Mg Cap.er.24h 37.5 MG ORAL DAILY, #30 CAP 0 Refills Discharge Condition Upon Discharge: stable Discharge Disposition Patient was discharged to SNF/Subacute Facility(03) [facility] Diagnoses: [facility]Luz NP Apr 20, 2017 14:19
--- NOTE | 2017-04-22 09:01 | Discharge Summary 2 SIG ---
DATE OF ADMISSION: 04/13/2017 DATE OF DISCHARGE: 04/15/2017 REASON FOR ADMISSION: 66 years old female with past medical history of morbid obesity, hypertension, chronic lymphedema bilateral lower extremities, gastroesophageal reflux disease, and anxiety disorder, presented from the custodial facility for three days of nausea, vomiting and abdominal discomfort. The patient denied chest pain or shortness of breath. She had a history of recurrent urinary tract infection with ESBL. Upon evaluation in the emergency room, the patient was afebrile, blood pressure was elevated -164/100, no leukocytosis, stable hemoglobin and hematocrit. Electrolytes within normal limits. Glucose -106. Lipase -97. LFTs within normal limits. EKG revealed normal sinus rate, no acute ischemic changes. The patient was admitted with intractable nausea and vomiting, abdominal pain, chronic lymphedema, and morbid obesity. HOSPITAL COURSE: The patient was admitted to the Med/Surg floor. The patient initially kept NPO and started on the IV fluids. GI consult was requested. The patient was started on DVT prophylaxis. After evaluation by GI, the patient was started on clear liquid diet and advanced slowly as tolerated. Antiemetic provided as needed. The patient declined abdominal ultrasound. The patient was started on PPI. Bowel regimen instituted. Anemia workup revealed anemia of chronic disease. GI recommended outpatient GI procedure. Blood pressure was managed with calcium-channel yves and hydralazine. Pain management was provided due to the chronic opiate dependency. Narcotic use was decreased. SNF medications were resumed. Supplemental oxygen provided as needed to keep saturation above 92% and handheld nebulizing treatment was on board as needed for shortness of breath. Infectious Disease consult was requested for possible cellulitis of lower extremities. According to Infectious Disease specialist conclusion, the patient had no cellulitis, just chronic lymphedema.ID recommended to monitor the patient off antibiotics. Urinalysis was not done, the patient was incontinent and refused to have a straight catheterization to obtain the urine. However, the patient voiced no urinary symptoms, was afebrile, and no leukocytosis. The patient was working with physical and occupational therapists. The patient was a DNR/DNI status. Diet was advanced as tolerated. The patient was able to tolerate diet. Intractable nausea, vomiting and abdominal pain/discomfort were likely secondary to gastroenteritis, which resolved. The patient was stable for discharge back to custodial facility. FINAL DIAGNOSES: 1. Intractable nausea vomiting, and abdominal pain (likely due to gastroenteritis) , resolved. 2. Probable gastroenteritis, 3. Opiate dependency. 4. Gastroesophageal reflux disease. 5. Hypertensive urgency, resolved. 6. Chronic obstructive pulmonary disease. 7. Coronary artery disease with history of myocardial infarction. 8. Chronic lymphedema of bilateral lower extremities. 9. Morbid obesity. 10. History of recurrent urinary tract infection. DISCHARGE MEDICATIONS: See medication reconciliation list. DISCHARGE INSTRUCTIONS: The patient discharged to custodial facility. FOLLOWUP: Follow up with medical doctor at the facility. Lilibeth Clarke M.D. Luz EllerMary Imogene Bassett HospitalPilar N.PIlda DR: BINTA JOB#: [id number] CC: ALEXANDREA
--- NOTE | 2017-04-23 16:20 | Cardiology Report ---
APPROVED REPORT EKG Measurement Heart [id number] OR 202P35 [id number] Normal sinus rhythm Inferior infarct, age undetermined Anterolateral infarct, age undetermined Abnormal ECG
== END 2017-04-18 13:22 | DRG 392 ==
LOC: EDUNIT# 10:49 → EDBD 10:49 → EMR 11:45 → 4E 15:13 → EDBEDREQ 15:37
PROC: 05HC33Z Insertion of Infusion Device into Left Basilic Vein, Percutaneous Approach (ICD-10-PCS; principal; 2017-04-13)
PROC: B54NZZA Ultrasonography of Left Upper Extremity Veins, Guidance (ICD-10-PCS; principal; 2017-04-13)
DX: K52.9 Noninfective gastroenteritis and colitis, unspecified (principal); F03.90 Unspecified dementia, unspecified severity, without behavioral disturbance, psychotic disturbance, mood disturbance, and anxiety; F11.20 Opioid dependence, uncomplicated; Z68.41 Body mass index [BMI] 40.0-44.9, adult; L97.909 Non-pressure chronic ulcer of unspecified part of unspecified lower leg with unspecified severity; I89.0 Lymphedema, not elsewhere classified; Z66 Do not resuscitate; E66.01 Morbid (severe) obesity due to excess calories; F41.9 Anxiety disorder, unspecified; I25.2 Old myocardial infarction; I25.10 Atherosclerotic heart disease of native coronary artery without angina pectoris; F32.89 Other specified depressive episodes; J44.9 Chronic obstructive pulmonary disease, unspecified; Z76.5 Malingerer [conscious simulation]; R11.2 Nausea with vomiting, unspecified; K21.9 Gastro-esophageal reflux disease without esophagitis; I16.0 Hypertensive urgency; Z87.440 Personal history of urinary (tract) infections
CPT/HCPCS: 36415; 36569; 76937; 80048; 80053; 82150; 83540; 83550; 83690; 85025; 85730; 87081; 93005; 99285; J2405

== ENCOUNTER 2017-04-23 09:10 | Emergency (ER) | payer SELFPAY ==
[~2017-04-23] VITALS: Ht 167.6 cm; Wt 104.3 kg
--- NOTE | 2017-04-23 09:15 | Emergency Room Report ---
History of Present Illness General Chief Complaint: Chest Pain Source: Patient, Medical Record Present Illness HPI 66YOF BIBEMS from SNF for chest pain of 20 minutes. Patient not providing additional HPI as to quality of chest pain and is asking for pain medication and yelling hysterically in stretcher. Per EMS, patient refused ASA and nitro for her pain. She does however deny cough, SOB, fever/chills, abd pain. Patient states the reason she is actually in the ER is because she is no nauseated and unable to eat at SNF and "doesnt like it there...dont send me back !" On review of EMR, patient admitted twice in last few weeks, was uncooperative with recommended testing in the ER and during admission and has known poor insight into her disease. The patient was evaluated by psychiatrist, as Tee. depressive disorder. Patient chest pain thought to to dysphagia and GERD. She had serial negative troponins and normal EKGs Lower extremity cellulitis was not thought infectious, however as per ID consult is likely lymphedema. Patient completed course of antibiotics IV during admission and back at SNF. Blood Cx from this visit were negative. She has a history of opiod dependence. Per director of midwifery/staff midwife, patient well known to ED staff at this hospital and others for narcotic-seeking behavior. Allergies: Coded Allergies: HALOPERIDOL (Verified Allergy, Unknown, 01/28/09) HALOPERIDOL LACTATE (Unverified Allergy, Unknown, 07/30/16) VANCOMYCIN (Unverified Adverse Reaction, Intermediate, Shortness of Breath , 06/26/13) Patient History Past Medical History: see triage record, old chart reviewed Past Surgical History: none Pertinent Family History: none Social History: Denies: smoking, alcohol use, drug use Now: No Immunizations: UTD Reviewed Nursing Documentation: PMH: Agreed, PSxH: Agreed Nursing Documentation-PMH Past Medical History: No History, Except For Hx Cardiac Problems: Yes Hx Hypertension: Yes Hx Asthma: No Hx COPD: Yes - Lymphedema Hx Cancer: Yes Hx Gastrointestinal Problems: Yes Hx Dialysis: No Hx Neurological Problems: Yes Hx Cerebrovascular Accident: No Hx Seizures: No Hx Weakness: Yes Hx Fatigue: Yes Hx Neurologic Surgery: No Review of Systems All Other Systems: negative except mentioned in HPI Physical Exam Vital Signs Date Time Temp Pulse Resp B/P (MAP) Pulse Ox O2 Delivery O2 Flow Rate FiO2 04/23/17 09:07 98.2 90 16 174/120 97 Room Air Sp02 EP Interpretation: reviewed, normal General Appearance: normal inspection, well appearing, no apparent distress, alert, GCS 15, non-toxic, obese, other - Histrionic, yelling in stretcher, uncooperative with exam, RN placing of IV line Head: normocephalic, atraumatic Eyes: bilateral eye PERRL, bilateral eye EOMI ENT: normal ENT inspection, hearing grossly normal, normal pharynx, no angioedema, normal voice, TMs + canals normal, uvula midline, moist mucus membranes Neck: normal inspection, full range of motion, supple, thyroid normal, no meningismus, no bony tend Respiratory: normal inspection, lungs clear, normal breath sounds, no rhonchi, no respiratory distress, no retraction, no accessory muscle use, no wheezing, speaking full sentences Cardiovascular #1: regular rate, rhythm, no edema, no JVD, normal capillary refill Gastrointestinal: normal inspection, normal bowel sounds, non tender, soft, no mass, no peritonitis, non-distended, no guarding, no hernia, no pulsatile mass Genitourinary: no CVA tenderness Musculoskeletal: normal inspection, back normal, normal range of motion, no calf tenderness, pelvis stable, Bar's Sign negative, other - Bilateral lower extremities lymphadema. No palpable warmth, no erythema. No sign of acute infection. Neurologic: normal inspection, alert, oriented x3, responsive, service delivery management consultant III-XII nml as tested, motor strength/tone normal, cerebellar normal, normal gait, speech normal Psychiatric: normal inspection, judgement/insight normal, mood/affect normal, no suicidal/homicidal ideation, no delusions, anxious Skin: normal inspection, normal color, no rash Lymphatic: normal inspection, no adenopathy Medical Decision Making Diagnostic Impression: Primary Impression: Intractable nausea and vomiting Qualified Codes: R11.2 - Nausea with vomiting, unspecified Additional Impression: Opiate dependence Qualified Codes: F11.29 - Opioid dependence with unspecified opioid-induced disorder ER Course 66YOF with nausea without vomiting or abd pain Serial vital signs stable Non focal abd exam ECG is non-ischemic Patient repeatedly asking for IV dilaudid She also likely has a personality disorder in addition to depression Given recent 2x admissions and normal Cardiac workup, I do not think she warrants additional testing and/or admission in the ED She was given Rx for zofran as needed for nausea/poor appetite at [facility] She was encouraged to followup with PMD ER course: Patient has remained stable during ED stay. Disposition: Patient is to be discharged to home. Prescriptions given are zofran Patient is instructed to follow up with their primary care doctor within 5 days. Strict return precautions discussed with patient such as fever, chills, worsening/severe pain, nausea, vomiting, which may indicate severe illness. Patient verbalizes understanding and agrees with plan. Please note that this Emergency Department Report was dictated using [employer] designer technology software, occasionally this can lead to erroneous entry secondary to interpretation by the dictation equipment EKG Diagnostic Results Rate: normal Rhythm: NSR ST Segments: no acute changes ASA given to the pt in ED: No Rhythm Strip Diag. Results EP Interpretation: yes Rate: 63 Rhythm: NSR, no PVC's, no ectopy Last Vital Signs Date Time Temp Pulse Resp B/P (MAP) Pulse Ox O2 Delivery O2 Flow Rate FiO2 04/23/17 09:07 98.2 90 16 174/120 97 Room Air Status: improved Disposition: XFER [facility] Scripts Ondansetron Odt* (ZOFRAN ODT*) 4 Mg Tab.rapdis 4 MG ORAL Q8HR Y for Nausea & Vomiting for 7 Days, #20 TAB 0 Refills Prov: NICKOLAS SALDANA M.D. 04/23/17 NICKOLAS SALDANA M.D. Apr 23, 2017 09:15
[2017-04-23 09:55] VITALS: BP 177/118
[2017-04-23] MEDS ORDERED: ZOFRAN ODT4 MG ORAL (10:04)
[2017-04-23 10:52] VITALS: BP 154/93
--- NOTE | 2017-04-28 14:53 | Cardiology Report ---
APPROVED REPORT EKG Measurement Heart [id number] 200P29 [id number] Sinus rhythm with premature atrial complexes Inferior infarct, age undetermined Anterior infarct, age undetermined Abnormal ECG
== END 2017-04-23 11:02 ==
LOC: EDBD 09:10 → EMR 09:59
DX: R11.2 Nausea with vomiting, unspecified (principal); R10.9 Unspecified abdominal pain; F11.20 Opioid dependence, uncomplicated; K21.9 Gastro-esophageal reflux disease without esophagitis; I16.0 Hypertensive urgency; J44.9 Chronic obstructive pulmonary disease, unspecified; I25.10 Atherosclerotic heart disease of native coronary artery without angina pectoris; I89.0 Lymphedema, not elsewhere classified; Z66 Do not resuscitate; I25.2 Old myocardial infarction; E66.01 Morbid (severe) obesity due to excess calories; Z68.37 Body mass index [BMI] 37.0-37.9, adult; Z87.440 Personal history of urinary (tract) infections; Z88.1 Allergy status to other antibiotic agents; Z88.8 Allergy status to other drugs, medicaments and biological substances
CPT/HCPCS: 93005; 96374; 99284; J2405

== ENCOUNTER 2017-05-21 09:02 | Emergency (ER) | payer SELFPAY ==
[~2017-05-21] VITALS: Ht 167.6 cm; Wt 103.0 kg
[~2017-05-21 09:02] MED LIST changes: +ZOFRAN ODT4 MG ORAL
[2017-05-21 09:20] VITALS: BP 186/86
[2017-05-21] MEDS ORDERED: ZyPREXA Zydis 5mg tab ORAL ONE (09:45)
[2017-05-21] MEDS ORDERED: NORCO 5-325 TA1 EAC1 ORAL (09:55)
--- NOTE | 2017-05-21 10:16 | Diagnostic Imaging Report ---
Indication: Reason For Exam: SOB Technique: Portable AP view of the chest. Comparison: 03/22/2017 Findings: Cardiac megaly again noted. Heart size and mediastinal contours are stable, including prominence of the central pulmonary vasculature and tortuous aorta. There is no focal airspace consolidation, pleural effusion or pneumothorax. No acute osseous abnormality appreciated. Impression: No radiographic evidence of acute cardiopulmonary disease. Stable cardiomegaly.
[2017-05-21 10:38] LABS: BASOPHILS % (AUTO) 0.4 % (0.0-2.0); EOSINOPHILS % (AUTO) 0.9 % (0.0-3.0); HEMOGLOBIN 13.4 G/DL (12.0-16.0); LYMPHOCYTES % (AUTO) 21.1 % (20.0-45.0); MEAN CORPUSCULAR VOLUME 81 FL (80-99); MONOCYTES % (AUTO) 6.1 % (1.0-10.0); NEUTROPHILS % (AUTO) 71.4 % (45.0-75.0); PLATELET COUNT 175 K/UL (150-450); RED BLOOD COUNT 5.07 M/UL (4.20-5.40); WHITE BLOOD COUNT 4.8 K/UL (4.8-10.8)
[2017-05-21 10:59] VITALS: BP 186/113
[2017-05-21 11:07] LABS: ANION GAP 6 mmol/L (5-15); BLOOD UREA NITROGEN 21 mg/dL (7-18); CALCIUM 9.5 MG/DL (8.5-10.1); CARBON DIOXIDE 28 MMOL/L (21-32); CHLORIDE 106 MMOL/L (98-107); CREATININE 0.8 MG/DL (0.55-1.30); POTASSIUM 4.2 MMOL/L (3.5-5.1); SODIUM 140 MMOL/L (136-145)
[2017-05-21 11:21] LABS: ALANINE AMINOTRANSFERASE 15 U/L (12-78); ALBUMIN 3.7 G/DL (3.4-5.0); ALBUMIN/GLOBULIN RATIO 0.8 (1.0-2.7); ALKALINE PHOSPHATASE 127 U/L (46-116); ASPARTATE AMINO TRANSFERASE 23 U/L (15-37); BILIRUBIN,TOTAL 0.6 MG/DL (0.2-1.0); CKMB < 0.5 NG/ML (0.0-3.6); CREATINE KINASE 48 U/L (26-308)
[2017-05-21] MEDS ORDERED: BENTYL10 MG ORAL (11:25)
--- NOTE | 2017-05-21 12:26 | Emergency Room Report ---
History of Present Illness General Chief Complaint: Chest Pain Present Illness HPI Patient is a 66-year-old female who presented after increased abdominal pain as well as chest discomfort. Patient had the reported having pain for the past few days. She prior history of chronic pain. Patient had been noted to have prior history of cardiac disease as well as chronic nonhealing wounds to her legs. Allergies: Coded Allergies: HALOPERIDOL (Verified Allergy, Unknown, 01/28/09) HALOPERIDOL LACTATE (Unverified Allergy, Unknown, 07/30/16) VANCOMYCIN (Unverified Adverse Reaction, Intermediate, Shortness of Breath , 06/26/13) Patient History Past Medical History: see triage record Reviewed Nursing Documentation: PMH: Agreed, PSxH: Agreed Nursing Documentation-PMH Hx Cardiac Problems: Yes Hx Hypertension: Yes Hx Asthma: No Hx COPD: Yes - Lymphedema Hx Cancer: Yes Hx Gastrointestinal Problems: Yes Hx Dialysis: No Hx Neurological Problems: Yes Hx Cerebrovascular Accident: No Hx Seizures: No Hx Weakness: Yes Hx Fatigue: Yes Hx Neurologic Surgery: No Review of Systems All Other Systems: negative except mentioned in HPI Physical Exam Vital Signs Date Time Temp Pulse Resp B/P (MAP) Pulse Ox O2 Delivery O2 Flow Rate FiO2 05/21/17 09:04 97.2 63 20 128/100 100 Room Air Sp02 EP Interpretation: reviewed, normal General Appearance: normal inspection, well appearing, no apparent distress, alert Head: atraumatic ENT: normal ENT inspection, hearing grossly normal, normal voice Neck: normal inspection, full range of motion, supple, no bony tend Respiratory: normal inspection, lungs clear, normal breath sounds, no respiratory distress, no retraction, no wheezing Cardiovascular #1: regular rate, rhythm, no edema Gastrointestinal: normal inspection, normal bowel sounds, non tender, soft, no guarding, no hernia Genitourinary: no CVA tenderness Musculoskeletal: normal inspection, back normal, normal range of motion Neurologic: normal inspection, alert, oriented x3, responsive, distribution center associate III-XII nml as tested, speech normal Psychiatric: normal inspection, judgement/insight normal, mood/affect normal Skin: normal inspection, normal color, no rash Medical Decision Making Diagnostic Impression: Primary Impression: Abdominal pain ER Course Patient presented for chest pain. Differential diagnosis included but was not limited to acute coronary syndrome, pulmonary embolism, pneumonia, aortic dissection, shingles, pneumothorax, aortic dissection, esophageal rupture, pericarditis.A chest x-ray showed cardiomegaly which was stable without infiltrate or pneumothorax read by radiology Patient was given Zyprexa for psychosis as well as vomiting. The patient was able to tolerate by mouth fluids. EKG showed normal sinus rhythm without acute ST or QT changes. I laboratory study showed normal troponin. The patient's exam and history consistent with gastrointestinal reflux disease and she did not appear to have cardiac chest pain. The patient is advised to follow up with primary care doctor in 1-2 days. Patient is advised to return if any worsening condition or if any changes in status that are concerning. This report is dictated with [employer] ornamenter hand software which may occasionally lead to discrepancies related to use of this software. Labs Test 05/21/17 10:25 White Blood Count 4.8 K/UL (4.8-10.8) Red Blood Count 5.07 M/UL (4.20-5.40) Hemoglobin 13.4 G/DL (12.0-16.0) Hematocrit 41.0 % (37.0-47.0) Mean Corpuscular Volume 81 FL (80-99) Mean Corpuscular Hemoglobin 26.4 PG (27.0-31.0) Mean Corpuscular Hemoglobin Concent 32.6 G/DL (32.0-36.0) Red Cell Distribution Width 14.0 % (11.6-14.8) Platelet Count 175 K/UL (150-450) Mean Platelet Volume 7.4 FL (6.5-10.1) Neutrophils (%) (Auto) 71.4 % (45.0-75.0) Lymphocytes (%) (Auto) 21.1 % (20.0-45.0) Monocytes (%) (Auto) 6.1 % (1.0-10.0) Eosinophils (%) (Auto) 0.9 % (0.0-3.0) Basophils (%) (Auto) 0.4 % (0.0-2.0) Sodium Level 140 MMOL/L (136-145) Potassium Level 4.2 MMOL/L (3.5-5.1) Chloride Level 106 MMOL/L (98-107) Carbon Dioxide Level 28 MMOL/L (21-32) Anion Gap 6 mmol/L (5-15) Blood Urea Nitrogen 21 mg/dL (7-18) Creatinine 0.8 MG/DL (0.55-1.30) Estimat Glomerular Filtration Rate > 60 mL/min (>60) Glucose Level 114 MG/DL (74-106) Calcium Level 9.5 MG/DL (8.5-10.1) Total Bilirubin 0.6 MG/DL (0.2-1.0) Aspartate Amino Transf (AST/SGOT) 23 U/L (15-37) Alanine Aminotransferase (ALT/SGPT) 15 U/L (12-78) Alkaline Phosphatase 127 U/L (46-116) Total Creatine Kinase 48 U/L (26-308) Creatine Kinase MB < 0.5 NG/ML (0.0-3.6) Creatine Kinase MB Relative Index 1.0 Troponin I 0.000 ng/mL (0.000-0.056) Total Protein 8.2 G/DL (6.4-8.2) Albumin 3.7 G/DL (3.4-5.0) Globulin 4.5 g/dL Albumin/Globulin Ratio 0.8 (1.0-2.7) EKG Diagnostic Results Rate: normal Rhythm: NSR ST Segments: no acute changes Rhythm Strip Diag. Results EP Interpretation: yes Rhythm: NSR, no PVC's, no ectopy Last Vital Signs Date Time Temp Pulse Resp B/P (MAP) Pulse Ox O2 Delivery O2 Flow Rate FiO2 05/21/17 10:59 62 17 186/113 94 Room Air 05/21/17 09:04 97.2 Status: improved Disposition: HOME, SELF-CARE Condition: Stable Scripts Dicyclomine Hcl* (BENTYL*) 10 Mg Capsule 10 MG ORAL FOUR TIMES A DAY, #20 CAP Prov: Levi Rubin 05/21/17 Patient Instructions: Nonspecific Chest Pain Levi Rubin May 21, 2017 12:26
[2017-05-21 12:47] VITALS: BP 163/93
--- NOTE | 2017-06-05 16:35 | Cardiology Report ---
APPROVED REPORT EKG Measurement Heart [id number] [place] 184P49 [id number] Normal sinus rhythm Inferior infarct, age undetermined Possible Anterior infarct, age undetermined Abnormal ECG
== END 2017-05-21 12:48 | disposition home or self-care (01) ==
LOC: EDBD 09:02 → EMR 09:10
DX: R10.9 Unspecified abdominal pain (principal); R07.9 Chest pain, unspecified; I10 Essential (primary) hypertension; J44.9 Chronic obstructive pulmonary disease, unspecified; I51.7 Cardiomegaly; Z88.1 Allergy status to other antibiotic agents; Z88.8 Allergy status to other drugs, medicaments and biological substances
CPT/HCPCS: 36415; 71045; 80053; 82550; 82553; 84484; 85025; 93005; 99284

== ENCOUNTER 2017-11-03 15:31 | Inpatient (IN) | payer MEDICAID ==
[~2017-11-03] VITALS: Ht 165.1 cm; Wt 127.0 kg
[~2017-11-03 15:31] MED LIST changes: +BENTYL10 MG ORAL
[2017-11-03 16:37] LABS: EOSINOPHILS % (AUTO) 0.2 % (0.0-3.0); HEMATOCRIT 36.2 % (37.0-47.0); HEMOGLOBIN 11.6 G/DL (12.0-16.0); LYMPHOCYTES % (AUTO) 12.5 % (20.0-45.0); MEAN CORPUSCULAR VOLUME 83 FL (80-99); MONOCYTES % (AUTO) 13.2 % (1.0-10.0); NEUTROPHILS % (AUTO) 73.1 % (45.0-75.0); PLATELET COUNT 126 K/UL (150-450); RED BLOOD COUNT 4.35 M/UL (4.20-5.40); RED CELL DISTRIBUTION WIDTH 14.7 % (11.6-14.8); WHITE BLOOD COUNT 9.7 K/UL (4.8-10.8)
[2017-11-03 16:38] LABS: APPEARANCE,URINE VERY CLOUDY; BILIRUBIN, URINE 1+ (NEGATIVE); GLUCOSE, URINE (UA) NEGATIVE (NEGATIVE); KETONES,URINE 1+ (NEGATIVE); LEUKOCYTE ESTERASE ,URINE 3+ (NEGATIVE); NITRITE,URINE POSITIVE (NEGATIVE); PH,URINE 6 (4.5-8.0); PROTEIN,URINE 3+ (NEGATIVE); UROBILINOGEN,URINE 8 MG/DL (0.0-1.0)
[2017-11-03 16:39] LABS: COLOR,URINE AMBER
[2017-11-03 16:41] VITALS: BP 100/72
[2017-11-03 16:47] LABS: ANION GAP 9 mmol/L (5-15); BLOOD UREA NITROGEN 28 mg/dL (7-18); CALCIUM 8.5 MG/DL (8.5-10.1); CARBON DIOXIDE 27 MMOL/L (21-32); CHLORIDE 100 MMOL/L (98-107); CREATININE 1.2 MG/DL (0.55-1.30); POTASSIUM 4.1 MMOL/L (3.5-5.1); SODIUM 136 MMOL/L (136-145)
[2017-11-03 16:51] LABS: ALANINE AMINOTRANSFERASE 15 U/L (12-78); ALBUMIN 2.8 G/DL (3.4-5.0); ALBUMIN/GLOBULIN RATIO 0.6 (1.0-2.7); ALKALINE PHOSPHATASE 85 U/L (46-116); ASPARTATE AMINO TRANSFERASE 13 U/L (15-37); BILIRUBIN,TOTAL 0.8 MG/DL (0.2-1.0)
[2017-11-03] MEDS ORDERED: cefTRIAXone 1 GM in NS 55 ML IVPB ONE (17:30)
[2017-11-03] MEDS ORDERED: Ketorolac 30mg Inj IV ONE (17:30)
[2017-11-03 17:38] VITALS: BP 120/98
--- NOTE | 2017-11-03 18:44 | Emergency Room Report ---
History of Present Illness General Chief Complaint: Fever Source: Patient, Medical Record, EMS Present Illness HPI This patient presents from a half-way facility. She presents with fever. According to the paperwork at the half-way facility her temp was 104. On arrival the patient's temp was normal. However, apparently she received Tylenol prior to arrival. The patient has a history of morbid obesity and elephantiasis. She has COPD and hypothyroidism. She also has GERD. She states that she does not feel well and feels nauseated. She has no other complaints. She denies chest pain or shortness of breath. She denies abdominal pain. She has no other complaints. Allergies: Coded Allergies: HALOPERIDOL (Verified Allergy, Unknown, 01/28/09) HALOPERIDOL LACTATE (Unverified Allergy, Unknown, 07/30/16) VANCOMYCIN (Unverified Adverse Reaction, Intermediate, Shortness of Breath , 06/26/13) Patient History Past Medical History: see triage record, old chart reviewed, HTN, COPD, GERD, other - morbid obesity Social History: Denies: smoking, alcohol use, drug use Reviewed Nursing Documentation: PMH: Agreed; PSxH: Agreed Nursing Documentation-PMH Hx Cardiac Problems: Yes Hx Hypertension: Yes Hx Asthma: No Hx COPD: Yes - Lymphedema Hx Cancer: Yes Hx Gastrointestinal Problems: Yes Hx Dialysis: No Hx Neurological Problems: Yes Hx Cerebrovascular Accident: No Hx Seizures: No Hx Weakness: Yes Hx Fatigue: Yes Hx Neurologic Surgery: No Review of Systems All Other Systems: negative except mentioned in HPI Physical Exam Vital Signs Date Time Temp Pulse Resp B/P (MAP) Pulse Ox O2 Delivery O2 Flow Rate FiO2 11/03/17 15:21 98.4 82 14 128/65 97 Room Air 98.4 Sp02 EP Interpretation: reviewed, normal General Appearance: no apparent distress, alert, GCS 15, non-toxic, obese Head: normocephalic, atraumatic Eyes: bilateral eye normal inspection, bilateral eye PERRL ENT: hearing grossly normal, normal pharynx, no angioedema, normal voice Neck: full range of motion, supple/symm/no masses Respiratory: chest non-tender, lungs clear, normal breath sounds, no respiratory distress, no retraction, no accessory muscle use, speaking full sentences Cardiovascular #1: regular rate, rhythm, no edema Gastrointestinal: normal bowel sounds, non tender, soft, non-distended, no guarding, no rebound Rectal: deferred Musculoskeletal: back normal, normal range of motion, swelling - elephantiasis Neurologic: alert, oriented x3, responsive, motor strength/tone normal, sensory intact, speech normal Psychiatric: judgement/insight normal, memory normal, mood/affect normal, no suicidal/homicidal ideation Skin: normal color, no rash, warm/dry, well hydrated Medical Decision Making Diagnostic Impression: Primary Impression: Pyelonephritis ER Course This patient presents with pyelonephritis. She has a urinalysis with too numerous to count white blood cells. Per report from the half-way [facility], her temp was 104 prior to arrival. She was afebrile here in the emergency department. She did have a lot of nausea but no vomiting. She was given IV Rocephin. She also was given IV antiemesis medications. I'm concerned primarily about the reported temp of 104. The patient will be admitted for further on monitoring, evaluation and treatment. Laboratory Tests Test 11/03/17 16:00 White Blood Count 9.7 K/UL (4.8-10.8) Red Blood Count 4.35 M/UL (4.20-5.40) Hemoglobin 11.6 G/DL (12.0-16.0) L Hematocrit 36.2 % (37.0-47.0) L Mean Corpuscular Volume 83 FL (80-99) Mean Corpuscular Hemoglobin 26.7 PG (27.0-31.0) L Mean Corpuscular Hemoglobin Concent 32.2 G/DL (32.0-36.0) Red Cell Distribution Width 14.7 % (11.6-14.8) Platelet Count 126 K/UL (150-450) L Mean Platelet Volume 7.6 FL (6.5-10.1) Neutrophils (%) (Auto) 73.1 % (45.0-75.0) Lymphocytes (%) (Auto) 12.5 % (20.0-45.0) L Monocytes (%) (Auto) 13.2 % (1.0-10.0) H Eosinophils (%) (Auto) 0.2 % (0.0-3.0) Basophils (%) (Auto) 1.0 % (0.0-2.0) Urine Color Norma Urine Appearance Very cloudy Urine pH 6 (4.5-8.0) Urine Specific [place] 1.015 (1.005-1.035) Urine Protein 3+ (NEGATIVE) H Urine Glucose (UA) Negative (NEGATIVE) Urine Ketones 1+ (NEGATIVE) H Urine Occult Blood 5+ (NEGATIVE) H Urine Nitrite Positive (NEGATIVE) H Urine Bilirubin 1+ (NEGATIVE) H Urine Ictotest Negative Urine Urobilinogen 8 MG/DL (0.0-1.0) H Urine Leukocyte Esterase 3+ (NEGATIVE) H Urine RBC 0-2 /HPF (0 - 2) Urine WBC Tntc /HPF (0 - 2) H Urine Squamous Epithelial Cells Few /LPF (NONE/OCC) Urine Bacteria Many /HPF (NONE) H Sodium Level 136 MMOL/L (136-145) Potassium Level 4.1 MMOL/L (3.5-5.1) Chloride Level 100 MMOL/L (98-107) Carbon Dioxide Level 27 MMOL/L (21-32) Anion Gap 9 mmol/L (5-15) Blood Urea Nitrogen 28 mg/dL (7-18) H Creatinine 1.2 MG/DL (0.55-1.30) Estimate Glomerular Filtration Rate 45.1 mL/min (>60) Glucose Level 119 MG/DL (74-106) H Calcium Level 8.5 MG/DL (8.5-10.1) Total Bilirubin 0.8 MG/DL (0.2-1.0) Aspartate Amino Transferase (AST) 13 U/L (15-37) L Alanine Aminotransferase (ALT) 15 U/L (12-78) Alkaline Phosphatase 85 U/L (46-116) Total Protein 7.6 G/DL (6.4-8.2) Albumin 2.8 G/DL (3.4-5.0) L Globulin 4.8 g/dL Albumin/Globulin Ratio 0.6 (1.0-2.7) L Last Vital Signs Date Time Temp Pulse Resp B/P (MAP) Pulse Ox O2 Delivery O2 Flow Rate FiO2 11/03/17 17:38 99.5 75 13 120/98 97 Room Air 99.5 Disposition: ADMITTED INPATIENT Condition: Serious Referrals: NON PHYSICIAN (PCP) Susi Camejo DO Nov 03, 2017 18:44
[2017-11-03] MEDS ORDERED: PREMARIN42.5 GM VG (18:55)
[2017-11-03] MEDS ORDERED: DEPAKOTE250 MG PO (18:55)
[2017-11-03] MEDS ORDERED: ESCITALOPRAM OX10 MG ORAL (18:55)
[2017-11-03 19:02] VITALS: BP 130/96
[2017-11-03] MEDS ORDERED: LUMIGAN2.5 ML BOTH EYES (19:46)
[2017-11-03 21:00] VITALS: BP 142/89
[2017-11-03 21:50] VITALS: BP 150/88
[2017-11-03] MEDS ORDERED: LORazepam 1mg tab ORAL PRN (22:00)
[2017-11-03] MEDS ORDERED: Morphine Sulfate 2mg/ml Inj(IV/IM USE ONLY) IVP PRN (22:00)
[2017-11-03] MEDS ORDERED: Norco 5mg/325mg tab ORAL PRN (22:15)
[2017-11-03] MEDS ORDERED: Albuterol ud Inhalation HHN PRN (22:15)
[2017-11-03] MEDS: dilTIAZem HCl 60mg tab ORAL SCH (22:26)
[2017-11-04] MEDS: Morphine Sulfate 2mg/ml Inj(IV/IM USE ONLY) IVP PRN ×6 (01:48→22:24)
[2017-11-04 04:00] VITALS: BP 156/72
[2017-11-04] MEDS: HydrALAZINE 10mg Tab ORAL SCH ×4 (05:13→17:56)
[2017-11-04] MEDS: dilTIAZem HCl 60mg tab ORAL SCH ×3 (05:13→21:12)
[2017-11-04] MEDS: Milk of Magnesia 30ml Ud ORAL SCH ×3 (09:00→19:51)
[2017-11-04] MEDS ORDERED: Heparin 5000 units/ml inj SUBQ SCH (09:00)
[2017-11-04] MEDS: Docusate 100mg cap ORAL SCH (09:04)
[2017-11-04] MEDS: Multivitamin w/Minerals tab ORAL SCH (09:04)
[2017-11-04] MEDS: Aspirin EC 81mg tab ORAL SCH (09:04)
[2017-11-04] MEDS: Miralax 17gm pkt ORAL SCH (09:05)
[2017-11-04 09:09] LABS: BASOPHILS % (AUTO) 0.7 % (0.0-2.0); HEMATOCRIT 37.2 % (37.0-47.0); HEMOGLOBIN 11.6 G/DL (12.0-16.0); LYMPHOCYTES % (AUTO) 4.7 % (20.0-45.0); MEAN CORPUSCULAR VOLUME 82 FL (80-99); MONOCYTES % (AUTO) 13.5 % (1.0-10.0); PLATELET COUNT 135 K/UL (150-450); RED BLOOD COUNT 4.56 M/UL (4.20-5.40); RED CELL DISTRIBUTION WIDTH 14.2 % (11.6-14.8); WHITE BLOOD COUNT 11.2 K/UL (4.8-10.8)
[2017-11-04 09:50] LABS: ALANINE AMINOTRANSFERASE 10 U/L (12-78); ALBUMIN 2.6 G/DL (3.4-5.0); ALBUMIN/GLOBULIN RATIO 0.6 (1.0-2.7); ALKALINE PHOSPHATASE 83 U/L (46-116); ANION GAP 8 mmol/L (5-15); ASPARTATE AMINO TRANSFERASE 11 U/L (15-37); BILIRUBIN,TOTAL 0.9 MG/DL (0.2-1.0); BLOOD UREA NITROGEN 28 mg/dL (7-18); CALCIUM 8.3 MG/DL (8.5-10.1); CARBON DIOXIDE 27 MMOL/L (21-32); CHLORIDE 99 MMOL/L (98-107); CREATININE 1.2 MG/DL (0.55-1.30); POTASSIUM 3.9 MMOL/L (3.5-5.1); SODIUM 134 MMOL/L (136-145)
[2017-11-04] MEDS: cefTRIAXone 1 GM in D5W 55 ML IVPB SCH (10:49)
[2017-11-04 12:00] VITALS: BP 171/65
[2017-11-04] MEDS ORDERED: LORazepam 1mg tab ORAL PRN (15:45)
[2017-11-04 16:00] VITALS: BP 159/78
[2017-11-04 20:05] VITALS: BP 140/68
[2017-11-04] MEDS: Heparin 5000 units/ml inj SUBQ SCH (21:00)
--- NOTE | 2017-11-04 22:36 | History and Physical ---
History of Present Illness General Date patient seen: Nov 04, 2017 Time patient seen: 11:52 Reason for Hospitalization: Fever Present Illness HPI 67 yo woman with dementia, SNF resident at [facility] Transferred to ED for pain and fevers/chills Noted to have +urine culture and pyelonephritis Admitted for IV antibiotics Patient notes pain in flank and nausea No chest pain or dyspnea Allergies: Coded Allergies: HALOPERIDOL (Verified Allergy, Unknown, 01/28/09) HALOPERIDOL LACTATE (Unverified Allergy, Unknown, 07/30/16) VANCOMYCIN (Unverified Adverse Reaction, Intermediate, Shortness of Breath , 06/26/13) Medication History Scheduled Aspirin* (Aspir-Low*), 81 MG ORAL DAILY, (Reported) Bimatoprost (Lumigan), 1 DROP BOTH EYES HS, (Reported) Diltiazem Hcl* (Cardizem*), 60 MG ORAL EVERY 8 HOURS, (Reported) Divalproex Sodium* (Depakote*), 250 MG PO TID, (Reported) Docusate Sodium* (Colace*), 100 MG ORAL DAILY, (Reported) Escitalopram Oxalate (Escitalopram Oxalate*), 5 MG ORAL DAILY, (Reported) Estrogens Conjugated (Premarin), 42.5 GM VG HS, (Reported) Hydralazine Hcl* (Hydralazine Hcl*), 10 MG ORAL EVERY 6 HOURS, (Reported) Magnesium Hydroxide* (Milk Of Magnesia*), 30 ML ORAL DAILY, (Reported) Multivitamin With Minerals (Multivitamins With Minerals*), 1 TAB ORAL DAILY, ( Reported) Polyethylene Glycol 3350* (Polyethylene Glycol 3350*), 17 GM ORAL DAILY, ( Reported) Scheduled PRN Acetaminophen* (Acetaminophen 325MG Tablet*), 325 MG ORAL Q4H PRN for Mild Pain/ Temp > 100.5, (Reported) Albuterol Sulfate* (Albuterol Sulfate Hhn*), 3 ML INH Q6H PRN for Shortness of Breath, (Reported) Hydrocodone Bit/Acetaminophen 5-325* ([place] 5-325 Tablet*), 1 TAB ORAL Q4H PRN for Severe Pain (Pain Scale 7-10), (Reported) Discontinued Medications Dicyclomine Hcl* (Bentyl*), 10 MG ORAL FOUR TIMES A DAY Discontinued Reason: Therapy completed Lorazepam* (Ativan*), 0.5 MG ORAL Q6HR PRN for For Anxiety, (Reported) Discontinued Reason: Therapy completed Ondansetron Odt* (Zofran Odt*), 4 MG ORAL Q8HR PRN for Nausea & Vomiting Discontinued Reason: Therapy completed Sucralfate* (Carafate*), 1 GM ORAL FOUR TIMES A DAY, (Reported) Discontinued Reason: Therapy completed Temazepam (Temazepam), 15 MG PO for insomnia, (Reported) Discontinued Reason: Therapy completed Patient History Limited by: medical condition History Provided By: Patient, Medical Record, EMS Healthcare decision maker Resuscitation status Advanced Directive on File Yes Past Medical/Surgical History Past Medical/Surgical History: (1) Essential hypertension (2) Lymphedema (3) Constipation (4) Lymphedema Review of Systems Constitutional: Reports: chills, fever, malaise, weakness Eye: Reports: no symptoms ENT: Reports: no symptoms Respiratory: Reports: no symptoms Cardiovascular: Reports: no symptoms Gastrointestinal: Reports: no symptoms Genitourinary: Reports: dysuria Musculoskeletal: Reports: back pain Skin: Reports: no symptoms Psychiatric: Reports: hallucinations Neurological: Reports: no symptoms Endocrine: Reports: increased urine Hematologic/Lymphatic: Reports: no symptoms All Other Systems: negative except mentioned in HPI Physical Exam General Appearance: no apparent distress, overweight Lines, tubes and drains: peripheral HEENT: normocephalic, atraumatic, EOMI, pharynx normal Neck: non-tender Respiratory/Chest: lungs clear Breasts: no masses Cardiovascular/Chest: normal rate, regular rhythm Abdomen: normal bowel sounds, non tender, soft Extremities: non-tender Skin Exam: normal pigmentation Neurologic: responsive Musculoskeletal: atrophy Last 24 Hour Vital Signs Date Time Temp Pulse Resp B/P (MAP) Pulse Ox O2 Delivery O2 Flow Rate FiO2 11/04/17 21:12 83 140/68 11/04/17 20:23 97 Room Air 11/04/17 20:23 83 Room Air 11/04/17 20:09 Room Air 11/04/17 20:05 98.2 80 18 140/68 (92) 93 98.2 11/04/17 17:56 159/78 11/04/17 16:00 99.0 85 20 159/78 (105) 95 99.0 11/04/17 13:09 90 171/89 11/04/17 12:54 98.7 11/04/17 12:00 101.6 93 20 171/65 (100) 95 101.6 11/04/17 11:55 101.6 11/04/17 11:55 171/89 11/04/17 09:00 Room Air 11/04/17 05:13 156/72 11/04/17 05:13 90 156/72 11/04/17 04:00 99.2 90 20 156/72 (100) 92 99.2 11/04/17 02:50 98.6 98.6 11/04/17 02:04 106 22 95 Nasal Cannula 2.0 28 11/04/17 02:00 103 24 85 Room Air 11/04/17 01:40 101.0 101.0 11/04/17 01:39 101.0 11/04/17 00:10 95 Room Air 11/04/17 00:08 76 Room Air 11/03/17 22:26 78 150/88 Intake and Output 11/03/17 11/04/17 19:00 07:00 Intake Total 55 ml 120 ml Balance 55 ml 120 ml Intake Oral 120 ml IV Total 55 ml # Voids 1 2 Laboratory Tests Test 11/04/17 08:35 White Blood Count 11.2 K/UL (4.8-10.8) H Red Blood Count 4.56 M/UL (4.20-5.40) Hemoglobin 11.6 G/DL (12.0-16.0) L Hematocrit 37.2 % (37.0-47.0) Mean Corpuscular Volume 82 FL (80-99) Mean Corpuscular Hemoglobin 25.4 PG (27.0-31.0) L Mean Corpuscular Hemoglobin Concent 31.1 G/DL (32.0-36.0) L Red Cell Distribution Width 14.2 % (11.6-14.8) Platelet Count 135 K/UL (150-450) L Mean Platelet Volume 7.3 FL (6.5-10.1) Neutrophils (%) (Auto) 81.0 % (45.0-75.0) H Lymphocytes (%) (Auto) 4.7 % (20.0-45.0) L Monocytes (%) (Auto) 13.5 % (1.0-10.0) H Eosinophils (%) (Auto) 0.0 % (0.0-3.0) Basophils (%) (Auto) 0.7 % (0.0-2.0) Sodium Level 134 MMOL/L (136-145) L Potassium Level 3.9 MMOL/L (3.5-5.1) Chloride Level 99 MMOL/L (98-107) Carbon Dioxide Level 27 MMOL/L (21-32) Anion Gap 8 mmol/L (5-15) Blood Urea Nitrogen 28 mg/dL (7-18) H Creatinine 1.2 MG/DL (0.55-1.30) Estimat Glomerular Filtration Rate 45.1 mL/min (>60) Glucose Level 130 MG/DL (74-106) H Lactic Acid Level 1.00 mmol/L (0.4-2.0) Calcium Level 8.3 MG/DL (8.5-10.1) L Total Bilirubin 0.9 MG/DL (0.2-1.0) Aspartate Amino Transf (AST/SGOT) 11 U/L (15-37) L Alanine Aminotransferase (ALT/SGPT) 10 U/L (12-78) L Alkaline Phosphatase 83 U/L (46-116) Total Protein 7.2 G/DL (6.4-8.2) Albumin 2.6 G/DL (3.4-5.0) L Globulin 4.6 g/dL Albumin/Globulin Ratio 0.6 (1.0-2.7) L Height (Feet): 5 Height (Inches): 5.00 Weight (Pounds): 280 Medications Current Medications Medications (Trade) Dose Ordered Sig/Shiraz Route PRN Reason Start Time Stop Time Status Last Admin Dose Admin Acetaminophen (Tylenol) 650 mg Q4H PRN ORAL Mild Pain/Temp > 100.5 11/04/17 01:36 12/03/17 01:35 11/04/17 11:55 Acetaminophen/ Hydrocodone Bitart ([place] 5/325) 1 tab Q4H PRN ORAL Severe Pain (Pain Scale 7-10) 11/03/17 22:15 11/10/17 22:14 Albuterol Sulfate (Proventil) 2.5 mg Q6H PRN HHN Shortness of Breath 11/03/17 22:15 11/08/17 22:14 11/04/17 01:57 Aspirin (Ecotrin) 81 mg DAILY ORAL 11/04/17 09:00 12/04/17 08:59 11/04/17 09:04 Ceftriaxone Sodium 1 gm/ Dextrose 55 ml @ 110 mls/hr Q24H IVPB 11/04/17 09:00 11/11/17 08:59 11/04/17 10:49 Diltiazem HCl (Cardizem) 60 mg EVERY 8 HOURS ORAL 11/03/17 22:15 12/03/17 22:14 11/04/17 21:12 Divalproex Sodium (Depakote) 250 mg Q8HR ORAL 11/04/17 22:00 12/04/17 08:59 11/04/17 21:11 Docusate Sodium (Colace) 100 mg DAILY ORAL 11/04/17 09:00 12/04/17 08:59 11/04/17 09:04 Heparin Sodium (Porcine) (Heparin 5000 units/ml) 5,000 units EVERY 12 HOURS SUBQ 11/04/17 21:00 12/04/17 08:59 Hydralazine HCl (Apresoline) 10 mg EVERY 6 HOURS ORAL 11/04/17 00:00 12/04/17 00:00 11/04/17 17:56 Lorazepam (Ativan) 1 mg Q8H PRN ORAL For Anxiety 11/04/17 15:45 11/10/17 21:59 Magnesium Hydroxide (Mom) 30 ml DAILY ORAL 11/04/17 09:00 12/04/17 08:59 11/04/17 19:51 Morphine Sulfate (Morphine Sulfate) 2 mg Q3H PRN IVP Severe Pain (Pain Scale 7-10) 11/04/17 16:09 11/10/17 22:44 11/04/17 17:50 Multivitamins Therapeutic (Therapeutic Multivitamin) 1 ea DAILY ORAL 11/04/17 09:00 12/04/17 08:59 11/04/17 09:04 Ondansetron HCl (Zofran) 4 mg Q6H PRN IVP Nausea & Vomiting 11/03/17 22:00 12/03/17 21:59 Polyethylene Glycol (Miralax) 17 gm DAILY ORAL 11/04/17 09:00 12/04/17 08:59 11/04/17 09:05 Assessment/Plan Status: not improved Status Narrative 67 yo woman with UTI , pyelonephritis and sepsis Assessment/Plan Admit to inpatient 1) Sepsis, urinary source UTI - IVF's -Continue IV antibiotics- ceftriaxone -follow up cultures Lactic acid at 1.0 2) Dementia -continue meds 3) Pyelonephirtis -As above Pain meds/IV antibiotics f/u cultures If does not improve or deteriorates, will perform imaging of kidneys HTN -continue meds with hold parameters given possible sepsis DVT Prophylaxis: SCD's, heparin Code Status: DNR Hospital Classification declaration: Based on this initial evaluation and depending on the patient's clinical course I anticipate that this patient will require hospitalization for at least 2-3 days Disposition: Once the patient is stable to leave the hospital I anticipate the patient will likely be discharged to the following environment: SNG- [facility] I spent 70 minutes on this patients car and 36 minutes was dedicated to counseling and care coordination Time of note may not reflect time of encounter Everardo Azevedo M.D. Nov 04, 2017 22:36
[2017-11-05] VITALS: BP 149/73
[2017-11-05] MEDS: HydrALAZINE 10mg Tab ORAL SCH ×4 (00:55→17:20)
[2017-11-05 04:00] VITALS: BP 161/88
[2017-11-05] MEDS: Morphine Sulfate 2mg/ml Inj(IV/IM USE ONLY) IVP PRN ×4 (04:21→21:05)
[2017-11-05] MEDS: dilTIAZem HCl 60mg tab ORAL SCH ×3 (05:39→21:33)
[2017-11-05 06:42] VITALS: BP 134/70
[2017-11-05 08:00] VITALS: BP 133/71
[2017-11-05] MEDS: Heparin 5000 units/ml inj SUBQ SCH ×2 (09:00→21:37)
[2017-11-05] MEDS: Miralax 17gm pkt ORAL SCH (09:02)
[2017-11-05] MEDS: Aspirin EC 81mg tab ORAL SCH (09:02)
[2017-11-05] MEDS: Multivitamin w/Minerals tab ORAL SCH (09:02)
[2017-11-05] MEDS: Docusate 100mg cap ORAL SCH (09:02)
[2017-11-05] MEDS: cefTRIAXone 1 GM in D5W 55 ML IVPB SCH (11:02)
[2017-11-05] MEDS ORDERED: NS 500ML ONE (15:32)
[2017-11-05 20:00] VITALS: BP 137/78
--- NOTE | 2017-11-05 22:40 | General Progress Note ---
Assessment/Plan Status: stable Status Narrative 67 yo woman admitted fo pyelonephritis/UTI/sepsis Assessment/Plan 1) Sepsis, urinary source UTI - IVF's -Continue IV antibiotics- ceftriaxone -follow up cultures Lactic acid at 1.0 -WBC increasing- will monitor culture results closely and adjust antibiotics as needed 2) Dementia -continue meds 3) Pyelonephirtis -As above Pain meds/IV antibiotics f/u cultures If does not improve or deteriorates, will perform imaging of kidneys 4) HTN -continue meds with hold parameters given possible sepsis DVT Prophylaxis: scd's, heparin Code status: full Hospital Classification declaration: Based on this initial evaluation, and depending on the patient's clinical course, I anticipate that this patient will require hospitalization for 2-3 days. Disposition: Once the patient is stable to leave the hospital, I anticipate the patient will likely be discharged to the following environment:SNF I spent 45 minutes on this patient's case, and 35 minutes was dedicated to counseling and/or care coordination. Time of note may not reflect time of encounter. Subjective Date patient seen: Nov 05, 2017 Time patient seen: 09:22 ROS Limited/Unobtainable: No Constitutional: Reports: weakness HEENT: Reports: no symptoms Cardiovascular: Reports: no symptoms Respiratory: Reports: no symptoms Gastrointestinal/Abdominal: Reports: abdominal pain Genitourinary: Reports: pain Neurologic/Psychiatric: Reports: no symptoms Endocrine: Reports: no symptoms Hematologic/Lymphatic: Reports: no symptoms Allergies: Coded Allergies: HALOPERIDOL (Verified Allergy, Unknown, 01/28/09) HALOPERIDOL LACTATE (Unverified Allergy, Unknown, 07/30/16) VANCOMYCIN (Unverified Adverse Reaction, Intermediate, Shortness of Breath , 06/26/13) All Systems: reviewed and negative except above Subjective No acute events overnight Patient notes pain in abdomen and flank Requesting pain meds Also notes dysuria Objective Last 24 Hour Vital Signs Date Time Temp Pulse Resp B/P (MAP) Pulse Ox O2 Delivery O2 Flow Rate FiO2 11/05/17 21:33 79 137/78 11/05/17 20:59 75 18 Room Air 11/05/17 17:50 97.7 11/05/17 17:20 97.7 11/05/17 17:20 133/71 11/05/17 14:57 95 133/71 11/05/17 12:04 133/71 11/05/17 11:02 97.7 11/05/17 08:30 Room Air 11/05/17 08:25 95 18 Room Air 11/05/17 08:00 97.7 75 133/71 (91) 97.7 11/05/17 06:42 97 134/70 (91) 11/05/17 05:42 98.9 98.9 11/05/17 05:39 161/88 11/05/17 05:39 96 161/88 11/05/17 05:20 98.9 11/05/17 04:21 98.9 11/05/17 04:21 101.3 11/05/17 04:00 101.3 96 18 161/88 (112) 92 101.3 11/05/17 00:55 149/73 11/05/17 00:00 98.9 96 18 149/73 (98) 92 98.9 Intake and Output 11/04/17 11/05/17 19:00 07:00 Intake Total 820 ml Balance 820 ml Intake Oral 600 ml IV Total 220 ml # Voids 5 3 Height (Feet): 5 Height (Inches): 5.00 Weight (Pounds): 280 General Appearance: no apparent distress, obese EENT: PERRL/EOMI, pharynx normal, pale conjunctivae Neck: non-tender, supple Cardiovascular: normal peripheral pulses, normal rate, regular rhythm, no gallop/murmur Respiratory/Chest: chest wall non-tender, lungs clear, normal breath sounds Abdomen: normal bowel sounds, non tender, soft Pelvis: normal external exam Extremities: normal range of motion Edema: trace edema 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 Nov 05, 2017 22:40
[2017-11-06] VITALS: BP 145/74
[2017-11-06] MEDS: Morphine Sulfate 2mg/ml Inj(IV/IM USE ONLY) IVP PRN ×6 (00:22→20:48)
[2017-11-06] MEDS: HydrALAZINE 10mg Tab ORAL SCH ×4 (00:22→17:31)
[2017-11-06 04:00] VITALS: BP 140/80
[2017-11-06] MEDS: dilTIAZem HCl 60mg tab ORAL SCH ×3 (05:51→22:14)
[2017-11-06] MEDS: cefTRIAXone 1 GM in D5W 55 ML IVPB SCH (08:01)
[2017-11-06] MEDS: Multivitamin w/Minerals tab ORAL SCH (08:01)
[2017-11-06] MEDS: Milk of Magnesia 30ml Ud ORAL SCH (08:01)
[2017-11-06] MEDS: Miralax 17gm pkt ORAL SCH (08:01)
[2017-11-06] MEDS: Aspirin EC 81mg tab ORAL SCH (08:01)
[2017-11-06] MEDS: Docusate 100mg cap ORAL SCH (08:02)
[2017-11-06] MEDS: Heparin 5000 units/ml inj SUBQ SCH ×2 (08:11→20:54)
--- NOTE | 2017-11-06 08:44 | General Progress Note ---
Assessment/Plan Status: unchanged Assessment/Plan 1) Sepsis, urinary source (E.coli) UTI - IVF's -cultures with ESBL producing E.coli -Continue IV antibiotics- will consult ID and switch to carbapenem stop ceftriaxone Lactic acid at 1.0 -WBC increasing- will monitor culture results closely and adjust antibiotics as needed 2) Dementia -continue meds 3) Pyelonephirtis -As above Pain meds/IV antibiotics f/u cultures- ESBL producing E.coli If does not improve or deteriorates, will perform imaging of kidneys 4) HTN -continue meds with hold parameters given possible sepsis DVT Prophylaxis: scd's, heparin Code status: full Hospital Classification declaration: Based on this initial evaluation, and depending on the patient's clinical course, I anticipate that this patient will require hospitalization for 2-3 days. Disposition: Once the patient is stable to leave the hospital, I anticipate the patient will likely be discharged to the following environment:SNF I spent 45 minutes on this patient's case, and 35 minutes was dedicated to counseling and/or care coordination. Time of note may not reflect time of encounter. Subjective Date patient seen: Nov 06, 2017 Time patient seen: 08:44 ROS Limited/Unobtainable: No HEENT: Reports: no symptoms Cardiovascular: Reports: no symptoms Respiratory: Reports: no symptoms Gastrointestinal/Abdominal: Reports: abdominal pain, nausea, vomiting Genitourinary: Reports: flank pain Neurologic/Psychiatric: Reports: other - agitation Endocrine: Reports: no symptoms Hematologic/Lymphatic: Reports: no symptoms Allergies: Coded Allergies: HALOPERIDOL (Verified Allergy, Unknown, 01/28/09) HALOPERIDOL LACTATE (Unverified Allergy, Unknown, 07/30/16) VANCOMYCIN (Unverified Adverse Reaction, Intermediate, Shortness of Breath , 06/26/13) All Systems: reviewed and negative except above Subjective Events of overnight noted Some agitation Patient notes continued pain in abdomen and flank Requesting pain meds Objective Last 24 Hour Vital Signs Date Time Temp Pulse Resp B/P (MAP) Pulse Ox O2 Delivery O2 Flow Rate FiO2 11/06/17 05:52 137/78 11/06/17 05:51 79 137/78 11/06/17 04:00 98.1 76 20 140/80 (100) 91 98.1 11/06/17 00:22 135/85 11/06/17 00:00 98.8 79 18 145/74 (97) 92 98.8 7/28/18 21:33 79 137/78 11/05/17 21:00 Room Air 11/05/17 20:59 75 18 Room Air 21 11/05/17 20:00 99.5 79 18 137/78 (97) 92 99.5 11/05/17 17:50 97.7 11/05/17 17:20 97.7 11/05/17 17:20 133/71 11/05/17 14:57 95 133/71 11/05/17 12:04 133/71 11/05/17 11:02 97.7 Intake and Output 11/05/17 11/06/17 19:00 07:00 Intake Total 655 ml 400 ml Balance 655 ml 400 ml Intake Oral 600 ml 400 ml IV Total 55 ml # Voids 3 2 Height (Feet): 5 Height (Inches): 5.00 Weight (Pounds): 280 General Appearance: no apparent distress, confused, obese EENT: PERRL/EOMI, TMs normal Neck: non-tender, supple Cardiovascular: normal peripheral pulses, normal rate, regular rhythm Respiratory/Chest: chest wall non-tender, lungs clear Abdomen: normal bowel sounds, soft Pelvis: normal external exam Extremities: normal range of motion, normal inspection, swelling Edema: 1+ Pedal (L), 1+ Pedal (R) Edema: mild edema Neurologic: alert, disoriented Skin: normal pigmentation Lymphatic: normal anterior cervical (L), normal anterior cervical (R), normal posterior cervical (L), normal posterior cervical (R) Everardo Azevedo M.D. Nov 06, 2017 08:44
[2017-11-06 14:06] VITALS: BP 140/76
--- NOTE | 2017-11-06 14:35 | Infectious Diseases Prog Note ---
Assessment/Plan Assessment/Plan Full consult to follow: A) 1) esbl e.coli uti 2) leg edema, no obvious cellulitis 3) allergies - vancomycin P) 1) meropenem or invanz for total of 10 days 2) thank you Subjective Allergies: Coded Allergies: HALOPERIDOL (Verified Allergy, Unknown, 01/28/09) HALOPERIDOL LACTATE (Unverified Allergy, Unknown, 07/30/16) VANCOMYCIN (Unverified Adverse Reaction, Intermediate, Shortness of Breath , 06/26/13) Objective Vital Signs Last 24 Hour Vital Signs Date Time Temp Pulse Resp B/P (MAP) Pulse Ox O2 Delivery O2 Flow Rate FiO2 11/06/17 14:06 97.6 78 18 140/76 (97) 93 97.6 11/06/17 14:03 76 140/76 11/06/17 09:48 92 Nasal Cannula 2.0 11/06/17 09:48 Nasal Cannula 2.0 11/06/17 09:48 80 16 Nasal Cannula 2.0 11/06/17 05:52 137/78 11/06/17 05:51 79 137/78 11/06/17 04:00 98.1 76 20 140/80 (100) 91 98.1 11/06/17 00:22 135/85 11/06/17 00:00 98.8 79 18 145/74 (97) 92 98.8 11/05/17 21:33 79 137/78 11/05/17 21:00 Room Air 11/05/17 20:59 75 18 Room Air 21 11/05/17 20:00 99.5 79 18 137/78 (97) 92 99.5 11/05/17 17:50 97.7 11/05/17 17:20 97.7 11/05/17 17:20 133/71 11/05/17 14:57 95 133/71 Height (Feet): 5 Height (Inches): 5.00 Weight (Pounds): 280 Microbiology Date/Time Source Procedure Growth Status 11/03/17 16:00 Urine,Clean Catch Urine Culture - Final Escherichia Coli - Esbl Complete 11/03/17 19:54 Rectum - Final NO CARBAPENEM-RESISTANT ENTEROBACTERI... Complete Current Medications Medications (Trade) Dose Ordered Sig/Shiraz Route PRN Reason Start Time Stop Time Status Last Admin Dose Admin Acetaminophen (Tylenol) 650 mg Q4H PRN ORAL Mild Pain/Temp > 100.5 11/04/17 01:36 12/03/17 01:35 11/05/17 04:21 Acetaminophen/ Hydrocodone Bitart ([place] 5/325) 1 tab Q4H PRN ORAL Severe Pain (Pain Scale 7-10) 11/03/17 22:15 11/10/17 22:14 Albuterol Sulfate (Proventil) 2.5 mg Q6H PRN HHN Shortness of Breath 11/03/17 22:15 11/08/17 22:14 11/04/17 01:57 Aspirin (Ecotrin) 81 mg DAILY ORAL 11/04/17 09:00 12/04/17 08:59 11/06/17 08:01 Ceftriaxone Sodium 1 gm/ Dextrose 55 ml @ 110 mls/hr Q24H IVPB 11/04/17 09:00 11/11/17 08:59 11/06/17 08:01 Diltiazem HCl (Cardizem) 60 mg EVERY 8 HOURS ORAL 11/03/17 22:15 12/03/17 22:14 11/06/17 14:03 Divalproex Sodium (Depakote) 250 mg Q8HR ORAL 11/04/17 22:00 12/04/17 08:59 11/06/17 14:02 Docusate Sodium (Colace) 100 mg DAILY ORAL 11/04/17 09:00 12/04/17 08:59 11/06/17 08:02 Heparin Sodium (Porcine) (Heparin 5000 units/ml) 5,000 units EVERY 12 HOURS SUBQ 11/04/17 21:00 12/04/17 08:59 11/06/17 08:11 Hydralazine HCl (Apresoline) 10 mg EVERY 6 HOURS ORAL 11/04/17 00:00 12/04/17 00:00 11/06/17 05:52 Lorazepam (Ativan) 1 mg Q8H PRN ORAL For Anxiety 11/04/17 15:45 11/10/17 21:59 11/06/17 08:01 Magnesium Hydroxide (Mom) 30 ml DAILY ORAL 11/04/17 09:00 12/04/17 08:59 11/06/17 08:01 Morphine Sulfate (Morphine Sulfate) 2 mg Q3H PRN IVP Severe Pain (Pain Scale 7-10) 11/04/17 16:09 11/10/17 22:44 11/06/17 14:02 Multivitamins Therapeutic (Therapeutic Multivitamin) 1 ea DAILY ORAL 11/04/17 09:00 12/04/17 08:59 11/06/17 08:01 Ondansetron HCl (Zofran) 4 mg Q6H PRN IVP Nausea & Vomiting 11/03/17 22:00 12/03/17 21:59 11/06/17 08:01 Polyethylene Glycol (Miralax) 17 gm DAILY ORAL 11/04/17 09:00 12/04/17 08:59 11/06/17 08:01 Aleisha Coronel MD Nov 06, 2017 14:35
[2017-11-06] MEDS ORDERED: Miralax 17gm pkt ORAL PRN (16:30)
[2017-11-06] MEDS ORDERED: Milk of Magnesia 30ml Ud ORAL PRN ×3 (16:33→17:08)
[2017-11-06 20:00] VITALS: BP 110/54
[2017-11-07] VITALS: BP 154/86
[2017-11-07] MEDS: Morphine Sulfate 2mg/ml Inj(IV/IM USE ONLY) IVP PRN ×5 (01:07→14:53)
[2017-11-07] MEDS: HydrALAZINE 10mg Tab ORAL SCH ×3 (01:07→11:46)
[2017-11-07 04:00] VITALS: BP 157/85
[2017-11-07] MEDS: dilTIAZem HCl 60mg tab ORAL SCH ×2 (05:33→13:58)
[2017-11-07 07:46] LABS: BASOPHILS % (AUTO) 0.9 % (0.0-2.0); EOSINOPHILS % (AUTO) 1.3 % (0.0-3.0); HEMATOCRIT 35.4 % (37.0-47.0); LYMPHOCYTES % (AUTO) 18.5 % (20.0-45.0); MEAN CORPUSCULAR VOLUME 83 FL (80-99); MONOCYTES % (AUTO) 14.1 % (1.0-10.0); NEUTROPHILS % (AUTO) 65.2 % (45.0-75.0); PLATELET COUNT 157 K/UL (150-450); RED BLOOD COUNT 4.27 M/UL (4.20-5.40); RED CELL DISTRIBUTION WIDTH 14.6 % (11.6-14.8); WHITE BLOOD COUNT 3.9 K/UL (4.8-10.8)
[2017-11-07] MEDS: Miralax 17gm pkt ORAL SCH (07:48)
[2017-11-07] MEDS: Multivitamin w/Minerals tab ORAL SCH (07:48)
[2017-11-07] MEDS: Aspirin EC 81mg tab ORAL SCH (07:48)
[2017-11-07] MEDS: Docusate 100mg cap ORAL SCH (07:48)
[2017-11-07] MEDS: Heparin 5000 units/ml inj SUBQ SCH (07:50)
[2017-11-07 08:15] LABS: ANION GAP 4 mmol/L (5-15); BLOOD UREA NITROGEN 33 mg/dL (7-18); CALCIUM 8.6 MG/DL (8.5-10.1); CARBON DIOXIDE 33 MMOL/L (21-32); CHLORIDE 101 MMOL/L (98-107); POTASSIUM 4.5 MMOL/L (3.5-5.1); SODIUM 138 MMOL/L (136-145)
[2017-11-07 11:45] VITALS: BP 147/79
--- NOTE | 2017-11-07 12:23 | Consultation ---
History of Present Illness General Date patient seen: Nov 06, 2017 Chief Complaint: Fever Present Illness HPI 67-year-old female with hx of depression and anxiety who comes in to [facility]. The patient came in with fevers from the [facility]. the pt is well known to this md. The pt was anxious and irritable during the eval. the pt has cognitive impairment. Allergies: Coded Allergies: HALOPERIDOL (Verified Allergy, Unknown, 01/28/09) HALOPERIDOL LACTATE (Unverified Allergy, Unknown, 07/30/16) VANCOMYCIN (Unverified Adverse Reaction, Intermediate, Shortness of Breath , 06/26/13) Medication History Scheduled Aspirin* (Aspir-Low*), 81 MG ORAL DAILY, (Reported) Bimatoprost (Lumigan), 1 DROP BOTH EYES HS, (Reported) Diltiazem Hcl* (Cardizem*), 60 MG ORAL EVERY 8 HOURS, (Reported) Divalproex Sodium* (Depakote*), 250 MG PO TID, (Reported) Docusate Sodium* (Colace*), 100 MG ORAL DAILY, (Reported) Escitalopram Oxalate (Escitalopram Oxalate*), 5 MG ORAL DAILY, (Reported) Estrogens Conjugated (Premarin), 42.5 GM VG HS, (Reported) Hydralazine Hcl* (Hydralazine Hcl*), 10 MG ORAL EVERY 6 HOURS, (Reported) Magnesium Hydroxide* (Milk Of Magnesia*), 30 ML ORAL DAILY, (Reported) Meropenem (Meropenem), 1 GM IV Q8H Multivitamin With Minerals (Multivitamins With Minerals*), 1 TAB ORAL DAILY, ( Reported) Polyethylene Glycol 3350* (Polyethylene Glycol 3350*), 17 GM ORAL DAILY, ( Reported) Scheduled PRN Acetaminophen* (Acetaminophen 325MG Tablet*), 325 MG ORAL Q4H PRN for Mild Pain/ Temp > 100.5, (Reported) Albuterol Sulfate* (Albuterol Sulfate Hhn*), 3 ML INH Q6H PRN for Shortness of Breath, (Reported) Hydrocodone Bit/Acetaminophen 5-325* ([place] 5-325 Tablet*), 1 TAB ORAL Q4H PRN for Severe Pain (Pain Scale 7-10), (Reported) Discontinued Medications Dicyclomine Hcl* (Bentyl*), 10 MG ORAL FOUR TIMES A DAY Discontinued Reason: Therapy completed Lorazepam* (Ativan*), 0.5 MG ORAL Q6HR PRN for For Anxiety, (Reported) Discontinued Reason: Therapy completed Ondansetron Odt* (Zofran Odt*), 4 MG ORAL Q8HR PRN for Nausea & Vomiting Discontinued Reason: Therapy completed Sucralfate* (Carafate*), 1 GM ORAL FOUR TIMES A DAY, (Reported) Discontinued Reason: Therapy completed Temazepam (Temazepam), 15 MG PO for insomnia, (Reported) Discontinued Reason: Therapy completed Patient History Limited by: medical condition History Provided By: Patient, Medical Record, PMD Healthcare decision maker Resuscitation status Advanced Directive on File Yes Past Medical/Surgical History Past Medical/Surgical History: (1) Tinea cruris (2) Onychomycosis (3) Cough (4) Opiate dependence (5) Opiate dependence (6) Opiate dependence (7) Sepsis (8) Chronic ulcer of leg (9) Chronic ulcer of leg (10) Smoker (11) Acute chest pain (12) Encounter for dressing change or suture removal (13) Acute encephalopathy (14) Encounter for wound re-check (15) Change of dressing (16) Change of dressing (17) Change of dressing (18) Change of dressing (19) Change of dressing (20) Change of dressing (21) Change of dressing (22) Change of dressing (23) Lymphadema (24) Lymphadema (25) Lymphedema (26) Lymphedema (27) Lymphedema (28) Lymphedema (29) Lymphedema (30) Lymphedema (31) Open wound of foot (32) Open wound of foot (33) cellulitis (34) hypertension uncontrolled (35) hypertension uncontrolled (36) hypertension uncontrolled (37) hypertension uncontrolled (38) hypertension uncontrolled (39) tenia corpus (40) Emesis (41) Opiate dependence (42) Abdominal pain (43) Chronic ulcer of leg (44) Infection due to ESBL-producing Escherichia coli (45) GERD (gastroesophageal reflux disease) (46) Intractable nausea and vomiting (47) Chest pain (48) Constipation (49) Essential hypertension (50) Lymphedema (51) Lymphedema (52) Anemia (53) Pyelonephritis (54) Obesity (55) ESBL urine (56) chronic lymphedema Review of Systems Psychiatric: Reports: prior hx, anxiety, depressed feelings, emotional problems Physical Exam General Appearance: alert, moderate distress Neurologic: oriented x 3, depressed affect Last 24 Hour Vital Signs Date Time Temp Pulse Resp B/P (MAP) Pulse Ox O2 Delivery O2 Flow Rate FiO2 11/07/17 11:46 147/79 11/07/17 11:45 97.5 74 19 147/79 (101) 95 97.5 11/07/17 08:28 99.5 11/07/17 08:06 75 18 Nasal Cannula 2.0 11/07/17 08:06 Nasal Cannula 2.0 11/07/17 08:06 94 Nasal Cannula 2.0 28 11/07/17 07:58 99.5 11/07/17 07:03 Nasal Cannula 2.0 11/07/17 05:33 157/85 11/07/17 05:33 79 157/85 11/07/17 04:00 99.5 79 20 157/85 (109) 92 99.5 11/07/17 01:07 154/86 11/07/17 00:00 98.2 78 20 154/86 (108) 93 98.2 11/06/17 22:14 75 148/84 11/06/17 21:00 Nasal Cannula 2.0 11/06/17 20:00 97.9 75 20 110/54 (72) 98 97.9 11/06/17 19:01 94 Nasal Cannula 2.0 11/06/17 19:01 Nasal Cannula 2.0 11/06/17 19:01 71 18 Nasal Cannula 2.0 11/06/17 17:31 97.6 11/06/17 17:31 140/76 11/06/17 14:06 97.6 78 18 140/76 (97) 93 97.6 11/06/17 14:03 76 140/76 Intake and Output 11/06/17 11/07/17 19:00 07:00 Intake Total 775 ml 100 ml Balance 775 ml 100 ml Intake Oral 720 ml IV Total 55 ml 100 ml # Voids 4 4 Laboratory Tests Test 11/07/17 07:15 White Blood Count 3.9 K/UL (4.8-10.8) L Red Blood Count 4.27 M/UL (4.20-5.40) Hemoglobin 11.0 G/DL (12.0-16.0) L Hematocrit 35.4 % (37.0-47.0) L Mean Corpuscular Volume 83 FL (80-99) Mean Corpuscular Hemoglobin 25.8 PG (27.0-31.0) L Mean Corpuscular Hemoglobin Concent 31.1 G/DL (32.0-36.0) L Red Cell Distribution Width 14.6 % (11.6-14.8) Platelet Count 157 K/UL (150-450) Mean Platelet Volume 7.4 FL (6.5-10.1) Neutrophils (%) (Auto) 65.2 % (45.0-75.0) Lymphocytes (%) (Auto) 18.5 % (20.0-45.0) L Monocytes (%) (Auto) 14.1 % (1.0-10.0) H Eosinophils (%) (Auto) 1.3 % (0.0-3.0) Basophils (%) (Auto) 0.9 % (0.0-2.0) Sodium Level 138 MMOL/L (136-145) Potassium Level 4.5 MMOL/L (3.5-5.1) Chloride Level 101 MMOL/L (98-107) Carbon Dioxide Level 33 MMOL/L (21-32) H Anion Gap 4 mmol/L (5-15) L Blood Urea Nitrogen 33 mg/dL (7-18) H Creatinine 1.0 MG/DL (0.55-1.30) Estimat Glomerular Filtration Rate 55.7 mL/min (>60) Glucose Level 128 MG/DL (74-106) H Calcium Level 8.6 MG/DL (8.5-10.1) Hepatitis A IgM Antibody Pending Hepatitis B Surface Antigen Pending Hepatitis B Core IgM Antibody Pending Hepatitis C Antibody Pending HIV (1&2) Antibody Rapid Negative (NEGATIVE) Height (Feet): 5 Height (Inches): 5.00 Weight (Pounds): 280 Medications Current Medications Medications (Trade) Dose Ordered Sig/Shiraz Route PRN Reason Start Time Stop Time Status Last Admin Dose Admin Acetaminophen (Tylenol) 650 mg Q4H PRN ORAL Mild Pain/Temp > 100.5 11/04/17 01:36 12/03/17 01:35 11/05/17 04:21 Acetaminophen/ Hydrocodone Bitart ([place] 5/325) 1 tab Q4H PRN ORAL Severe Pain (Pain Scale 7-10) 11/03/17 22:15 11/10/17 22:14 Albuterol Sulfate (Proventil) 2.5 mg Q6H PRN HHN Shortness of Breath 11/03/17 22:15 11/08/17 22:14 11/04/17 01:57 Aspirin (Ecotrin) 81 mg DAILY ORAL 11/04/17 09:00 12/04/17 08:59 11/07/17 07:48 Diltiazem HCl (Cardizem) 60 mg EVERY 8 HOURS ORAL 11/03/17 22:15 12/03/17 22:14 11/07/17 05:33 Divalproex Sodium (Depakote) 250 mg Q8HR ORAL 11/04/17 22:00 12/04/17 08:59 11/07/17 05:33 Docusate Sodium (Colace) 100 mg DAILY ORAL 11/04/17 09:00 12/04/17 08:59 11/07/17 07:48 Heparin Sodium (Porcine) (Heparin 5000 units/ml) 5,000 units EVERY 12 HOURS SUBQ 11/04/17 21:00 12/04/17 08:59 11/06/17 20:54 Hydralazine HCl (Apresoline) 10 mg EVERY 6 HOURS ORAL 11/04/17 00:00 12/04/17 00:00 11/07/17 11:46 Lorazepam (Ativan) 1 mg Q8H PRN ORAL For Anxiety 11/04/17 15:45 11/10/17 21:59 11/06/17 08:01 Magnesium Hydroxide (Mom) 30 ml DAILYPRN PRN ORAL Constipation 11/06/17 17:08 12/06/17 17:07 Meropenem 1 gm/ Sodium Chloride 100 ml @ 200 mls/hr Q8H IVPB 11/06/17 16:00 11/11/17 15:59 11/07/17 07:48 Morphine Sulfate (Morphine Sulfate) 2 mg Q3H PRN IVP Severe Pain (Pain Scale 7-10) 11/04/17 16:09 11/10/17 22:44 11/07/17 11:47 Multivitamins Therapeutic (Therapeutic Multivitamin) 1 ea DAILY ORAL 11/04/17 09:00 12/04/17 08:59 11/07/17 07:48 Ondansetron HCl (Zofran) 4 mg Q6H PRN IVP Nausea & Vomiting 11/03/17 22:00 12/03/17 21:59 11/06/17 14:49 Polyethylene Glycol (Miralax) 17 gm DAILY ORAL 11/04/17 09:00 12/04/17 08:59 11/07/17 07:48 Assessment/Plan Assessment/Plan MDD Anxiety Cognitive impairment -lexapro -depakote -Harris Chan MD Nov 07, 2017 12:23
--- NOTE | 2017-11-07 12:54 | General Progress Note ---
Assessment/Plan Assessment/Plan # Leukopenia is likely related to underlying sepsis --> treat with antibiotics --> if worsens, consider hepatitis and hiv panel # Anemia of chronic disease --> workup has been reviewed already # Thrombocytopenia is related to likely sepsis --> currently better improved to >100k --> Sepsis, urinary source (E.coli) # Dementia # Pyelonephirtis # HTN Subjective Date patient seen: Nov 07, 2017 Constitutional: Denies: no symptoms, chills, diaphoresis, fever, malaise, weakness, other HEENT: Denies: no symptoms, eye pain, blurred vision, tearing, double vision, ear pain, ear discharge, nose pain, nose congestion, throat pain, throat swelling, mouth pain, mouth swelling, other Cardiovascular: Denies: no symptoms, chest pain, edema, irregular heart rate, lightheadedness, palpitations, syncope, other Respiratory: Denies: no symptoms, cough, orthopnea, shortness of breath, SOB with excertion, SOB at rest, sputum, stridor, wheezing, other Genitourinary: Denies: no symptoms, burning, discharge, frequency, flank pain, hematuria, incontinence, pain, urgency, other Neurologic/Psychiatric: Denies: no symptoms, anxiety, depressed, emotional problems, headache, numbness, paresthesia, pre-existing deficit, seizure, tingling, tremors, weakness, other Endocrine: Denies: no symptoms, excessive sweating, flushing, intolerance to cold, intolerance to heat, increased hunger, increased thirst, increased urine, unexplained weight gain, unexplained weight loss, other Hematologic/Lymphatic: Denies: no symptoms, anemia, easy bleeding, easy bruising, other Allergies: Coded Allergies: HALOPERIDOL (Verified Allergy, Unknown, 01/28/09) HALOPERIDOL LACTATE (Unverified Allergy, Unknown, 07/30/16) VANCOMYCIN (Unverified Adverse Reaction, Intermediate, Shortness of Breath , 06/26/13) Subjective still febrile Objective Last 24 Hour Vital Signs Date Time Temp Pulse Resp B/P (MAP) Pulse Ox O2 Delivery O2 Flow Rate FiO2 11/07/17 11:46 147/79 11/07/17 11:45 97.5 74 19 147/79 (101) 95 97.5 11/07/17 08:28 99.5 11/07/17 08:06 75 18 Nasal Cannula 2.0 28 7/30/18 08:06 Nasal Cannula 2.0 28 11/07/17 08:06 94 Nasal Cannula 2.0 28 11/07/17 07:58 99.5 11/07/17 07:03 Nasal Cannula 2.0 11/07/17 05:33 157/85 11/07/17 05:33 79 157/85 11/07/17 04:00 99.5 79 20 157/85 (109) 92 99.5 11/07/17 01:07 154/86 11/07/17 00:00 98.2 78 20 154/86 (108) 93 98.2 11/06/17 22:14 75 148/84 11/06/17 21:00 Nasal Cannula 2.0 11/06/17 20:00 97.9 75 20 110/54 (72) 98 97.9 11/06/17 19:01 94 Nasal Cannula 2.0 11/06/17 19:01 Nasal Cannula 2.0 11/06/17 19:01 71 18 Nasal Cannula 2.0 11/06/17 17:31 97.6 11/06/17 17:31 140/76 11/06/17 14:06 97.6 78 18 140/76 (97) 93 97.6 11/06/17 14:03 76 140/76 Intake and Output 11/06/17 11/07/17 19:00 07:00 Intake Total 775 ml 100 ml Balance 775 ml 100 ml Intake Oral 720 ml IV Total 55 ml 100 ml # Voids 4 4 Laboratory Tests 11/07/17 07:15: White Blood Count 3.9L, Red Blood Count 4.27, Hemoglobin 11.0L, Hematocrit 35.4L , Mean Corpuscular Volume 83, Mean Corpuscular Hemoglobin 25.8L, Mean Corpuscular Hemoglobin Concent 31.1L, Red Cell Distribution Width 14.6, Platelet Count 157, Mean Platelet Volume 7.4, Neutrophils (%) (Auto) 65.2, Lymphocytes (%) (Auto) 18.5L, Monocytes (%) (Auto) 14.1H, Eosinophils (%) (Auto ) 1.3, Basophils (%) (Auto) 0.9, Sodium Level 138, Potassium Level 4.5, Chloride Level 101, Carbon Dioxide Level 33H, Anion Gap 4L, Blood Urea Nitrogen 33H, Creatinine 1.0, Estimat Glomerular Filtration Rate 55.7, Glucose Level 128H , Calcium Level 8.6, Hepatitis A IgM Antibody [Pending], Hepatitis B Surface Antigen [Pending], Hepatitis B Core IgM Antibody [Pending], Hepatitis C Antibody [Pending], HIV (1&2) Antibody Rapid Negative Height (Feet): 5 Height (Inches): 5.00 Weight (Pounds): 280 General Appearance: alert EENT: pharynx normal Neck: normal inspection Cardiovascular: regular rhythm Respiratory/Chest: normal breath sounds Abdomen: no organomegaly Extremities: non-tender Edema: 1+ Leg (L), 1+ Leg (R) Edema: mild edema Neurologic: responsive Yao Aden MD Nov 07, 2017 12:54
[2017-11-07] MEDS ORDERED: MEROPENEM1 GM IV (13:24)
[2017-11-07 13:58] VITALS: BP 147/79
--- NOTE | 2017-11-07 14:19 | Discharge Summary ---
Discharge Summary Hospital Course Date of Admission Nov 03, 2017 at 17:51 Date of Discharge November 07, 2017 Admitting Diagnosis Pylonephritis HPI Charisse Couch is a 67 year old female who was admitted on Nov 03, 2017 at 17:51 for Pylonephritis 67 yo woman with dementia, SNF resident [facility] Transferred to ED for pain and fevers/chills Noted to have +urine culture and pyelonephritis Admitted for IV antibiotics Patient notes pain in flank and nausea No chest pain or dyspnea Consultations ID Procedures None Hospital Course Patient was started on empiric IV ceftriaxone but leukocytosis worsened. Urine culture showed ESBL and ID was consulted. Patient was switched to IV meropenam and WBC downtrended. Patient was hemodynamically stable and afebrile prior to discharge. Patient was discharged on IV meropenam for a total of 10 days back to [facility], [facility]. Discharge Medications New Medications: Meropenem (Meropenem) 1 Gm Vial 1 GM IV Q8H for 9 Days, #27 VIAL Continued Medications: Acetaminophen* (Acetaminophen 325MG Tablet*) 325 Mg Tablet 325 MG ORAL Q4H PRN for Mild Pain/Temp > 100.5, TAB (This prescription has been renewed) Albuterol Sulfate* (Albuterol Sulfate Hhn*) 2.5 Mg/3 Ml Vial.neb 3 ML INH Q6H PRN for Shortness of Breath Aspirin* (Aspir-Low*) 81 Mg Tablet.dr 81 MG ORAL DAILY, TAB (This prescription has been renewed) Bimatoprost (Lumigan) 2.5 Ml Drops 1 DROP BOTH EYES HS (This prescription has been renewed) Diltiazem Hcl* (Cardizem*) 60 Mg Tablet 60 MG ORAL EVERY 8 HOURS, TAB (This prescription has been renewed) Divalproex Sodium* (Depakote*) 250 Mg Tablet.dr 250 MG PO TID (This prescription has been renewed) Docusate Sodium* (Colace*) 100 Mg Capsule 100 MG ORAL DAILY, CAP (This prescription has been renewed) Escitalopram Oxalate (Escitalopram Oxalate*) 10 Mg Tablet 5 MG ORAL DAILY for DEPRESSION (This prescription has been renewed) Estrogens Conjugated (Premarin) 30 Gm Cream.appl 42.5 GM VG HS (This prescription has been renewed) Hydralazine Hcl* (Hydralazine Hcl*) 10 Mg Tablet 10 MG ORAL EVERY 6 HOURS, TAB (This prescription has been renewed) Hydrocodone Bit/Acetaminophen 5-325* ([place] 5-325 Tablet*) 1 Each Tablet 1 TAB ORAL Q4H PRN for Severe Pain (Pain Scale 7-10) Magnesium Hydroxide* (Milk Of Magnesia*) 400 Mg/5 Ml Oral.susp 30 ML ORAL DAILY, ML (This prescription has been renewed) Multivitamin With Minerals (Multivitamins With Minerals*) 1 Each Tablet 1 TAB ORAL DAILY, TAB (This prescription has been renewed) Polyethylene Glycol 3350* (Polyethylene Glycol 3350*) 17 Gm Powd.pack 17 GM ORAL DAILY for Constipation, PACKET (This prescription has been renewed) Discharge Condition Upon Discharge: improving, stable Discharge Disposition Patient was discharged to SNF, [facility]. Discharge Diagnoses: (1) ESBL urine (2) Pyelonephritis (3) chronic lymphedema (4) Obesity (5) Anemia Paulina Pearl NP Nov 07, 2017 14:19
--- NOTE | 2017-11-07 20:00 | Consultation ---
DATE OF CONSULTATION: 11/06/2017 INFECTIOUS DISEASE CONSULTATION CONSULTING PHYSICIAN: Aleisha Coronel M.D. ATTENDING PHYSICIAN: Ignacia Blackwood M.D. REFERRING PHYSICIAN: Ignacia Blackwood M.D. REASON FOR CONSULTATION: ESBL E. coli UTI, sepsis with UTI, pyelonephritis. CHIEF COMPLAINT: The patient's chief complaint coming in the hospital is pyelonephritis, UTI. HISTORY OF PRESENT ILLNESS: This is a 67-year-old female who comes in to [facility]. The patient came in with fevers from the [facility]. Her temperature was 104. She came in not feeling well. The patient had urinalysis that showed 3+ leukocyte esterase, too many to count white blood cells. Urine culture grew out ESBL E. coli. Infectious Disease consultation is requested for antibiotic management. The patient is septic with elevated white count, fevers, and E. coli UTI and pyelonephritis with sepsis. The patient was started on meropenem. MAR was noted. Orders were noted. Notes were reviewed. Case was discussed with the patient. REVIEW OF SYSTEMS: CONSTITUTIONAL: The patient has generalized fatigue, weakness, fever, chills, but no new focal weakness. HEAD AND NECK: No head pain or neck pain. No headache or change in vision. CARDIAC: No chest pain or palpitations. GASTROINTESTINAL: No nausea, vomiting, or diarrhea. GENITOURINARY: She had dysuria, frequency, CVA tenderness. PULMONARY: No congestion. No productive cough, shortness of breath, or secretions. SKIN: No rashes. EXTREMITIES: No extremity pain. NEUROLOGIC: No seizures. PAST MEDICAL HISTORY: Includes history of the following. The patient has a past medical history of obesity. The patient has history of hypertension. The patient has history of cardiac problems. She has history of COPD, lymphedema. It looks like she does have history of cancer per the records, GI disease, neurological issues, weakness, and fatigue. She has history of obesity and anemia. ALLERGIES: Include haloperidol, lactate, and vancomycin. FAMILY HISTORY: Noncontributory. SOCIAL HISTORY: Negative for smoking, alcohol, or drug abuse. MEDICATIONS: Upon reviewing the MAR, she has been on the following medications. She is on Lexapro, MOM, Depakote, morphine, Ativan, Ecotrin, Colace, MiraLAX, Tylenol, meropenem. Outside medications noted and reconciliated. PHYSICAL EXAMINATION: VITAL SIGNS: When I saw the patient, her temperature in the morning was 98.1, pulse rate 76, respiratory rate 20, blood pressure 140/80, saturation 91% to 98%. Her T-max was 101.6. Her maximum pulse rate was 106. GENERAL: Alert, responsive, in no acute distress. HEAD AND NECK: Oral exam, no thrush. Eye exam, no icterus. Neck is supple. No JVD. Normocephalic. No facial droop. No neck stiffness. Neck is supple. HEART: Regular. No gallop or murmur. ABDOMEN: Soft. Positive bowel sounds. Nontender. LUNGS: Clear bilaterally. No rhonchi or rales. SKIN: No rash. MUSCULOSKELETAL: No effusion. Legs are without cellulitis. She has lymphedema. PERIPHERAL VASCULAR: No gangrene. GENITOURINARY: No [place]. LINE SITES: Without phlebitis. NEUROLOGIC: Intact, nonfocal. She is alert and oriented x3. Gu - CVA tenderness. LABORATORY DATA: Laboratory data as follows. White count 11.3, hemoglobin 11.6. Creatinine 1.2. Urinalysis, 3+ leukocyte esterase, too many to count white blood cells, many bacteria. Urine culture, greater than 100,000 ESBL E. coli. ASSESSMENT AND PLAN: 1. The patient has ESBL E. coli UTI, pyelonephritis, sepsis, elevated white count, fevers. SIRS criteria. Continue meropenem for 10-day total course. This is the preferred drug for ESBL E. coli UTI and pyelonephritis. The patient overall is improved. Her fevers have improved. Continue meropenem times total 10 days. 2. Obesity. 3. Lymphedema. 4. Possible psychiatric disease. 5. History of hypertension. 6. History of cardiac and GI disease per the records. 7. History of fatigue and weakness. 8. Hypertension, treatment per primary. 9. No history of diabetes. 10. Past medical history noted. 11. Allergies to haloperidol, lactate, and vancomycin. 12. Family history noncontributory. 13. Social history negative. 14. MAR was noted. 15. Case discussed with RN. 16. Case communicated with primary care team. Aleisha Coronel M.D. DR: Jazmin JOB#: [id number] CC: ALEXANDREA
--- NOTE | 2017-11-07 23:02 | General Progress Note ---
Assessment/Plan Status: stable Assessment/Plan MDD Anxiety Cognitive impairment -lexapro -depakote -ativan Subjective Date patient seen: Nov 07, 2017 Neurologic/Psychiatric: Reports: anxiety, depressed, emotional problems Allergies: Coded Allergies: HALOPERIDOL (Verified Allergy, Unknown, 01/28/09) HALOPERIDOL LACTATE (Unverified Allergy, Unknown, 07/30/16) VANCOMYCIN (Unverified Adverse Reaction, Intermediate, Shortness of Breath , 06/26/13) Objective Last 24 Hour Vital Signs Date Time Temp Pulse Resp B/P (MAP) Pulse Ox O2 Delivery O2 Flow Rate FiO2 11/07/17 13:58 74 147/79 11/07/17 11:46 147/79 11/07/17 11:45 97.5 74 19 147/79 (101) 95 97.5 11/07/17 08:28 99.5 11/07/17 08:06 75 18 Nasal Cannula 2.0 11/07/17 08:06 Nasal Cannula 2.0 28 11/07/17 08:06 94 Nasal Cannula 2.0 28 11/07/17 07:58 99.5 11/07/17 07:03 Nasal Cannula 2.0 11/07/17 05:33 157/85 11/07/17 05:33 79 157/85 11/07/17 04:00 99.5 79 20 157/85 (109) 92 99.5 11/07/17 01:07 154/86 11/07/17 00:00 98.2 78 20 154/86 (108) 93 98.2 Intake and Output 11/06/17 11/07/17 19:00 07:00 Intake Total 775 ml 100 ml Balance 775 ml 100 ml Intake Oral 720 ml IV Total 55 ml 100 ml # Voids 4 4 Laboratory Tests 11/07/17 07:15: White Blood Count 3.9L, Red Blood Count 4.27, Hemoglobin 11.0L, Hematocrit 35.4L , Mean Corpuscular Volume 83, Mean Corpuscular Hemoglobin 25.8L, Mean Corpuscular Hemoglobin Concent 31.1L, Red Cell Distribution Width 14.6, Platelet Count 157, Mean Platelet Volume 7.4, Neutrophils (%) (Auto) 65.2, Lymphocytes (%) (Auto) 18.5L, Monocytes (%) (Auto) 14.1H, Eosinophils (%) (Auto ) 1.3, Basophils (%) (Auto) 0.9, Sodium Level 138, Potassium Level 4.5, Chloride Level 101, Carbon Dioxide Level 33H, Anion Gap 4L, Blood Urea Nitrogen 33H, Creatinine 1.0, Estimat Glomerular Filtration Rate 55.7, Glucose Level 128H , Calcium Level 8.6, Hepatitis A IgM Antibody [Pending], Hepatitis B Surface Antigen [Pending], Hepatitis B Core IgM Antibody [Pending], Hepatitis C Antibody [Pending], HIV (1&2) Antibody Rapid Negative Height (Feet): 5 Height (Inches): 5.00 Weight (Pounds): 280 General Appearance: no apparent distress, alert, mild distress Neurologic: oriented x 3, depressed affect Harris Ballesteros MD Nov 07, 2017 23:02
== END 2017-11-07 16:21 | DRG 463 ==
LOC: EDBD 15:31 → EMR 16:10 → 4W 17:51 → EDBEDREQ 18:41
DX: N12 Tubulo-interstitial nephritis, not specified as acute or chronic (principal); F03.90 Unspecified dementia, unspecified severity, without behavioral disturbance, psychotic disturbance, mood disturbance, and anxiety; B96.20 Unspecified Escherichia coli [E. coli] as the cause of diseases classified elsewhere; N39.0 Urinary tract infection, site not specified; Z16.12 Extended spectrum beta lactamase (ESBL) resistance; I89.0 Lymphedema, not elsewhere classified; D64.9 Anemia, unspecified; Z88.1 Allergy status to other antibiotic agents; Z88.8 Allergy status to other drugs, medicaments and biological substances; F32.9 Major depressive disorder, single episode, unspecified; F41.9 Anxiety disorder, unspecified
CPT/HCPCS: 36415; 80048; 80053; 81003; 83605; 85025; 86703; 86705; 86709; 86803; 87081; 87086; 87181; 87340; 94640; 94664; 94760; 99285; J2405

== ENCOUNTER 2017-12-09 16:55 | Inpatient (IN) | payer MEDICAID ==
[~2017-12-09] VITALS: Ht 152.4 cm; Wt 152.1 kg
[~2017-12-09 16:55] MED LIST changes: +DEPAKOTE250 MG PO; +ESCITALOPRAM OX10 MG ORAL; +LUMIGAN2.5 ML BOTH EYES; +MEROPENEM1 GM IV; +PREMARIN42.5 GM VG
[2017-12-09] MEDS ORDERED: DEBROX15 M1 LEFT EAR (17:35)
[2017-12-09] MEDS ORDERED: LATANOPROST 0.7.5 ML OP (17:38)
[2017-12-09] MEDS ORDERED: LORAZEPAM0.5 MG IM (17:39)
[2017-12-09] MEDS ORDERED: PHENAZOPYRIDIN200 MG ORAL (17:40)
[2017-12-09] MEDS ORDERED: PREMARIN0.45 MG ORAL (17:40)
[2017-12-09 17:51] VITALS: BP 157/73
[2017-12-09 18:06] LABS: BASOPHILS % (AUTO) 0.9 % (0.0-2.0); EOSINOPHILS % (AUTO) 1.8 % (0.0-3.0); HEMATOCRIT 36.8 % (37.0-47.0); HEMOGLOBIN 11.9 G/DL (12.0-16.0); LYMPHOCYTES % (AUTO) 33.1 % (20.0-45.0); MEAN CORPUSCULAR VOLUME 83 FL (80-99); MONOCYTES % (AUTO) 7.9 % (1.0-10.0); NEUTROPHILS % (AUTO) 56.3 % (45.0-75.0); PLATELET COUNT 185 K/UL (150-450); RED BLOOD COUNT 4.45 M/UL (4.20-5.40); RED CELL DISTRIBUTION WIDTH 14.5 % (11.6-14.8); WHITE BLOOD COUNT 5.1 K/UL (4.8-10.8)
[2017-12-09 18:08] LABS: ANION GAP 8 mmol/L (5-15); BLOOD UREA NITROGEN 27 mg/dL (7-18); CALCIUM 9.5 MG/DL (8.5-10.1); CARBON DIOXIDE 26 MMOL/L (21-32); CHLORIDE 106 MMOL/L (98-107); CREATININE 0.9 MG/DL (0.55-1.30); SODIUM 140 MMOL/L (136-145)
[2017-12-09 18:12] LABS: ALANINE AMINOTRANSFERASE 14 U/L (12-78); ALBUMIN 3.1 G/DL (3.4-5.0); ALBUMIN/GLOBULIN RATIO 0.7 (1.0-2.7); ALKALINE PHOSPHATASE 90 U/L (46-116); ASPARTATE AMINO TRANSFERASE 9 U/L (15-37); BILIRUBIN,TOTAL 0.3 MG/DL (0.2-1.0)
[2017-12-09 18:33] LABS: APPEARANCE,URINE SLIGHTLY CLOUDY; BILIRUBIN, URINE 2+ (NEGATIVE); GLUCOSE, URINE (UA) NEGATIVE (NEGATIVE); KETONES,URINE 1+ (NEGATIVE); LEUKOCYTE ESTERASE ,URINE 3+ (NEGATIVE); NITRITE,URINE POSITIVE (NEGATIVE); PH,URINE 6 (4.5-8.0); PROTEIN,URINE 2+ (NEGATIVE); UROBILINOGEN,URINE 8 MG/DL (0.0-1.0)
[2017-12-09 18:46] LABS: COLOR,URINE ORANGE
[2017-12-09] MEDS ORDERED: Morphine Sulfate 4mg/ml Inj (IV USE ONLY) IVP ONE (19:00)
[2017-12-09] MEDS ORDERED: Piperacillin/Tazobactam 3.375 GM in NS 110 ML IVPB ONE (19:00)
--- NOTE | 2017-12-09 19:12 | Emergency Room Report ---
History of Present Illness General Chief Complaint: Female Urogenital Problems Source: Medical Record Present Illness HPI 67-year-old for evaluation. Patient coming from rehabilitation facility. Patient states that she's having suprapubic pain and burning urination and vomiting 1 day. States that she has a "kidney infection". Denies fevers or chills. Denies chest pain or shortness of breath. Denies any diarrhea. No other aggravating relieving factors. Denies any other associated symptoms Allergies: Coded Allergies: HALOPERIDOL (Verified Allergy, Unknown, 01/28/09) HALOPERIDOL LACTATE (Unverified Allergy, Unknown, 07/30/16) VANCOMYCIN (Unverified Adverse Reaction, Intermediate, Shortness of Breath , 06/26/13) Patient History Past Medical History: HTN, psych hx, other - lymphedema Now: No Immunizations: UTD Reviewed Nursing Documentation: PMH: Agreed; PSxH: Agreed Nursing Documentation-PM Past Medical History: No History, Except For Hx Cardiac Problems: Yes Hx Hypertension: Yes Hx Asthma: No Hx COPD: Yes - Lymphedema Hx Cancer: No Hx Gastrointestinal Problems: Yes Hx Dialysis: No Hx Neurological Problems: Yes Hx Cerebrovascular Accident: No Hx Seizures: No Hx Weakness: Yes Hx Fatigue: Yes Hx Neurologic Surgery: No Review of Systems All Other Systems: negative except mentioned in HPI Physical Exam Vital Signs Date Time Temp Pulse Resp B/P (MAP) Pulse Ox O2 Delivery O2 Flow Rate FiO2 12/09/17 16:57 97.8 86 18 170/86 93 Room Air 97.9 Sp02 EP Interpretation: reviewed, normal General Appearance: no apparent distress, alert, GCS 15, non-toxic, obese Head: normocephalic, atraumatic Eyes: bilateral eye normal inspection, bilateral eye PERRL ENT: hearing grossly normal, normal pharynx, no angioedema, normal voice Neck: full range of motion, supple/symm/no masses Respiratory: chest non-tender, lungs clear, normal breath sounds, speaking full sentences Cardiovascular #1: regular rate, rhythm, no edema Cardiovascular #2: 2+ carotid (R), 2+ carotid (L), 2+ radial (R), 2+ radial (L) , 2+ dorsalis pedis (R), 2+ dorsalis pedis (L) Gastrointestinal: normal bowel sounds, non tender, soft, non-distended, no guarding, no rebound Rectal: deferred Genitourinary: normal inspection, no CVA tenderness Musculoskeletal: back normal, gait/station normal, normal range of motion, non- tender Neurologic: alert, oriented x3, responsive, motor strength/tone normal, sensory intact, speech normal Psychiatric: judgement/insight normal, memory normal, mood/affect normal, no suicidal/homicidal ideation Reflexes: 3+ bicep (R), 3+ bicep (L), 3+ tricep (R), 3+ tricep (L), 3+ knee (R) , 3+ knee (L) Skin: normal color, no rash, warm/dry, well hydrated Lymphatic: no adenopathy Medical Decision Making Diagnostic Impression: Primary Impression: Sepsis Qualified Codes: A41.9 - Sepsis, unspecified organism Additional Impression: Pyelonephritis ER Course Hospital Course 67 yo F presents to ED with suprapubic pain, vomiting Differential diagnoses include: Pneumonia, UTI, sepsis, dehydration, CO/ unstable angina Clinical course Patient placed on stretcher. 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 After initial history and physical, I ordered labs, IV fluids, chest x- ray, blood culture, UA Labs - electrolytes ok, no leukocytosis, troponins negative, lactate elevated, UA grossly positive for UTI CXR - no acute process Abx given. IVFs given. case discussed with Dr Luz and they agreed to admit patient to their service for further care and support I feel this is a highly complex case requiring extensive working including EKG/ Rhythm strip, Xray/CT/US, Blood/urine lab work, repeat exams while in ED, and administration of strong opiates/narcotics for pain control, admission to hospital or close patient follow up. Diagnosis - sepsis, pyleonephritis Patient admitted to floor in serious condition Labs Test 12/09/17 17:40 12/09/17 18:10 White Blood Count 5.1 K/UL (4.8-10.8) Red Blood Count 4.45 M/UL (4.20-5.40) Hemoglobin 11.9 G/DL (12.0-16.0) Hematocrit 36.8 % (37.0-47.0) Mean Corpuscular Volume 83 FL (80-99) Mean Corpuscular Hemoglobin 26.7 PG (27.0-31.0) Mean Corpuscular Hemoglobin Concent 32.3 G/DL (32.0-36.0) Red Cell Distribution Width 14.5 % (11.6-14.8) Platelet Count 185 K/UL (150-450) Mean Platelet Volume 6.7 FL (6.5-10.1) Neutrophils (%) (Auto) 56.3 % (45.0-75.0) Lymphocytes (%) (Auto) 33.1 % (20.0-45.0) Monocytes (%) (Auto) 7.9 % (1.0-10.0) Eosinophils (%) (Auto) 1.8 % (0.0-3.0) Basophils (%) (Auto) 0.9 % (0.0-2.0) Sodium Level 140 MMOL/L (136-145) Potassium Level 4.0 MMOL/L (3.5-5.1) Chloride Level 106 MMOL/L (98-107) Carbon Dioxide Level 26 MMOL/L (21-32) Anion Gap 8 mmol/L (5-15) Blood Urea Nitrogen 27 mg/dL (7-18) Creatinine 0.9 MG/DL (0.55-1.30) Estimat Glomerular Filtration Rate > 60 mL/min (>60) Glucose Level 124 MG/DL (74-106) Lactic Acid Level 2.40 mmol/L (0.4-2.0) Calcium Level 9.5 MG/DL (8.5-10.1) Total Bilirubin 0.3 MG/DL (0.2-1.0) Aspartate Amino Transf (AST/SGOT) 9 U/L (15-37) Alanine Aminotransferase (ALT/SGPT) 14 U/L (12-78) Alkaline Phosphatase 90 U/L (46-116) Total Protein 7.5 G/DL (6.4-8.2) Albumin 3.1 G/DL (3.4-5.0) Globulin 4.4 g/dL Albumin/Globulin Ratio 0.7 (1.0-2.7) Urine Color [place] Urine Appearance Slightly cloudy Urine pH 6 (4.5-8.0) Urine Specific [place] 1.015 (1.005-1.035) Urine Protein 2+ (NEGATIVE) Urine Glucose (UA) Negative (NEGATIVE) Urine Ketones 1+ (NEGATIVE) Urine Blood 2+ (NEGATIVE) Urine Nitrite Positive (NEGATIVE) Urine Bilirubin 2+ (NEGATIVE) Urine Ictotest Negative (NEGATIVE) Urine Urobilinogen 8 MG/DL (0.0-1.0) Urine Leukocyte Esterase 3+ (NEGATIVE) Urine RBC 5-10 /HPF (0 - 2) Urine WBC Tntc /HPF (0 - 2) Urine Squamous Epithelial Cells Moderate /LPF (NONE/OCC) Urine Bacteria Moderate /HPF (NONE) EKG Diagnostic Results Rate: normal Rhythm: NSR ST Segments: no acute changes ASA given to the pt in ED: No Rhythm Strip Diag. Results EP Interpretation: yes Rhythm: NSR, no PVC's, no ectopy Chest X-Ray Diagnostic Results Chest X-Ray Diagnostic Results : Chest X-Ray Ordered: Yes # of Views/Limited/Complete: 1 View Indication: Other EP Interpretation: Yes Interpretation: no consolidation, no pneumothorax, no acute cardiopulmonary disease, other - L sided effusion Impression: Other - small L sided effusion Electronically Signed by: Electronically signed by Luke Lindquist MD Last Vital Signs Date Time Temp Pulse Resp B/P (MAP) Pulse Ox O2 Delivery O2 Flow Rate FiO2 12/09/17 17:51 64 13 157/73 95 Room Air 12/09/17 16:57 97.8 97.9 Status: improved Disposition: ADMITTED INPATIENT Condition: Serious Referrals: NON PHYSICIAN (PCP) Luke Lindquist MD Dec 09, 2017 19:12
[2017-12-09 20:09] VITALS: BP 146/74
[2017-12-09 20:15] VITALS: BP 146/74
[2017-12-09 20:40] VITALS: BP 146/74
--- NOTE | 2017-12-09 21:29 | Diagnostic Imaging Report ---
EXAM: XR Chest, 1 View CLINICAL HISTORY: WEAK TECHNIQUE: Frontal view of the chest. COMPARISON: 05/21/2017. FINDINGS: Lungs: Unremarkable. No consolidation. Pleural space: Unremarkable. No pneumothorax. Heart: Stable mild cardiomegaly. Mediastinum: Unremarkable. Bones/joints: Unremarkable. IMPRESSION: No acute cardiopulmonary disease.
[2017-12-09] MEDS: cefTRIAXone 1 GM in D5W 55 ML IVPB SCH (22:10)
[2017-12-09] MEDS: D5 1/2NS 1,000 ML IV SCH (22:10)
[2017-12-09] MEDS: Morphine Sulfate 4mg/ml Inj (IV USE ONLY) IVP PRN (22:14)
[2017-12-09] MEDS ORDERED: LORazepam Inj 2mg/ml 1ml IM PRN (23:15)
[2017-12-10] VITALS (7 sets, daily range): BP systolic 146–196; BP diastolic 74–124
[2017-12-10] MEDS: HydrALAZINE 10mg Tab ORAL SCH ×4 (00:50→17:25)
[2017-12-10] MEDS: Morphine Sulfate 4mg/ml Inj (IV USE ONLY) IVP PRN ×8 (01:16→22:33)
[2017-12-10] MEDS: dilTIAZem HCl 60mg tab ORAL SCH ×3 (06:19→21:05)
[2017-12-10 07:57] LABS: BASOPHILS % (AUTO) 1.2 % (0.0-2.0); EOSINOPHILS % (AUTO) 2.2 % (0.0-3.0); HEMATOCRIT 37.3 % (37.0-47.0); HEMOGLOBIN 11.9 G/DL (12.0-16.0); LYMPHOCYTES % (AUTO) 25.1 % (20.0-45.0); MEAN CORPUSCULAR VOLUME 84 FL (80-99); MONOCYTES % (AUTO) 8.9 % (1.0-10.0); NEUTROPHILS % (AUTO) 62.7 % (45.0-75.0); PLATELET COUNT 153 K/UL (150-450); RED BLOOD COUNT 4.45 M/UL (4.20-5.40); RED CELL DISTRIBUTION WIDTH 15.3 % (11.6-14.8)
[2017-12-10 08:24] LABS: ANION GAP 7 mmol/L (5-15); BLOOD UREA NITROGEN 18 mg/dL (7-18); CALCIUM 8.3 MG/DL (8.5-10.1); CARBON DIOXIDE 28 MMOL/L (21-32); CHLORIDE 105 MMOL/L (98-107); CREATININE 0.7 MG/DL (0.55-1.30); POTASSIUM 3.9 MMOL/L (3.5-5.1); SODIUM 140 MMOL/L (136-145)
[2017-12-10] MEDS: Milk of Magnesia 30ml Ud ORAL SCH ×2 (09:00→09:35)
[2017-12-10] MEDS: Phenazopyridine 200mg tab ORAL SCH ×3 (09:35→17:24)
[2017-12-10] MEDS: Docusate 100mg cap ORAL SCH (09:35)
[2017-12-10] MEDS: Aspirin EC 81mg tab ORAL SCH (09:36)
[2017-12-10] MEDS: Multivitamin w/Minerals tab ORAL SCH (09:36)
[2017-12-10] MEDS: HydrALAZINE 10mg Tab ORAL PRN (10:31)
[2017-12-10] MEDS: D5 1/2NS 1,000 ML IV SCH (10:31)
--- NOTE | 2017-12-10 12:04 | Infectious Diseases Prog Note ---
Assessment/Plan Assessment/Plan Full consult to follow: uti leg cellulitis allergies - vancomycin pmh noted abx - rocephin plus doxycycline check urine culture monitor labs and cellulitis thank you Subjective Allergies: Coded Allergies: HALOPERIDOL (Verified Allergy, Unknown, 01/28/09) HALOPERIDOL LACTATE (Unverified Allergy, Unknown, 07/30/16) VANCOMYCIN (Unverified Adverse Reaction, Intermediate, Shortness of Breath , 06/26/13) Objective Vital Signs Last 24 Hour Vital Signs Date Time Temp Pulse Resp B/P (MAP) Pulse Ox O2 Delivery O2 Flow Rate FiO2 12/10/17 10:31 176/75 12/10/17 10:31 96.9 12/10/17 09:00 Room Air 12/10/17 08:00 97.2 69 18 176/75 (108) 94 97.2 12/10/17 08:00 96.9 12/10/17 07:30 96.9 12/10/17 06:19 180/97 12/10/17 06:19 68 180/97 12/10/17 04:00 96.9 64 20 160/96 (117) 94 96.9 12/10/17 00:50 163/95 12/10/17 00:00 163/95 (117) 12/09/17 22:38 Room Air 12/09/17 20:40 98.6 63 24 146/74 (98) 94 98.6 12/09/17 20:15 63 24 146/74 94 Room Air 12/09/17 20:15 63 24 146/74 94 Room Air 12/09/17 20:09 63 24 146/74 94 Room Air 12/09/17 19:20 97.8 12/09/17 17:51 64 13 157/73 95 Room Air 12/09/17 16:57 97.8 86 18 170/86 93 Room Air 97.9 Height (Feet): 5 Height (Inches): 0.00 Weight (Pounds): 250 Laboratory Tests Test 12/09/17 17:40 12/09/17 18:10 12/09/17 19:10 12/10/17 06:40 White Blood Count 5.1 K/UL (4.8-10.8) 4.0 K/UL (4.8-10.8) L Red Blood Count 4.45 M/UL (4.20-5.40) 4.45 M/UL (4.20-5.40) Hemoglobin 11.9 G/DL (12.0-16.0) L 11.9 G/DL (12.0-16.0) L Hematocrit 36.8 % (37.0-47.0) L 37.3 % (37.0-47.0) Mean Corpuscular Volume 83 FL (80-99) 84 FL (80-99) Mean Corpuscular Hemoglobin 26.7 PG (27.0-31.0) L 26.8 PG (27.0-31.0) L Mean Corpuscular Hemoglobin Concent 32.3 G/DL (32.0-36.0) 32.0 G/DL (32.0-36.0) Red Cell Distribution Width 14.5 % (11.6-14.8) 15.3 % (11.6-14.8) H Platelet Count 185 K/UL (150-450) 153 K/UL (150-450) Mean Platelet Volume 6.7 FL (6.5-10.1) 6.8 FL (6.5-10.1) Neutrophils (%) (Auto) 56.3 % (45.0-75.0) 62.7 % (45.0-75.0) Lymphocytes (%) (Auto) 33.1 % (20.0-45.0) 25.1 % (20.0-45.0) Monocytes (%) (Auto) 7.9 % (1.0-10.0) 8.9 % (1.0-10.0) Eosinophils (%) (Auto) 1.8 % (0.0-3.0) 2.2 % (0.0-3.0) Basophils (%) (Auto) 0.9 % (0.0-2.0) 1.2 % (0.0-2.0) Sodium Level 140 MMOL/L (136-145) 140 MMOL/L (136-145) Potassium Level 4.0 MMOL/L (3.5-5.1) 3.9 MMOL/L (3.5-5.1) Chloride Level 106 MMOL/L (98-107) 105 MMOL/L (98-107) Carbon Dioxide Level 26 MMOL/L (21-32) 28 MMOL/L (21-32) Anion Gap 8 mmol/L (5-15) 7 mmol/L (5-15) Blood Urea Nitrogen 27 mg/dL (7-18) H 18 mg/dL (7-18) Creatinine 0.9 MG/DL (0.55-1.30) 0.7 MG/DL (0.55-1.30) Estimat Glomerular Filtration Rate > 60 mL/min (>60) > 60 mL/min (>60) Glucose Level 124 MG/DL (74-106) H 99 MG/DL (74-106) Lactic Acid Level 2.40 mmol/L (0.4-2.0) H 2.00 mmol/L (0.66-2.22) Calcium Level 9.5 MG/DL (8.5-10.1) 8.3 MG/DL (8.5-10.1) L Total Bilirubin 0.3 MG/DL (0.2-1.0) Aspartate Amino Transf (AST/SGOT) 9 U/L (15-37) L Alanine Aminotransferase (ALT/SGPT) 14 U/L (12-78) Alkaline Phosphatase 90 U/L (46-116) Total Protein 7.5 G/DL (6.4-8.2) Albumin 3.1 G/DL (3.4-5.0) L Globulin 4.4 g/dL Albumin/Globulin Ratio 0.7 (1.0-2.7) L Urine Color [place] Urine Appearance Slightly cloudy Urine pH 6 (4.5-8.0) Urine Specific [place] 1.015 (1.005-1.035) Urine Protein 2+ (NEGATIVE) H Urine Glucose (UA) Negative (NEGATIVE) Urine Ketones 1+ (NEGATIVE) H Urine Blood 2+ (NEGATIVE) H Urine Nitrite Positive (NEGATIVE) H Urine Bilirubin 2+ (NEGATIVE) H Urine Ictotest Negative (NEGATIVE) Urine Urobilinogen 8 MG/DL (0.0-1.0) H Urine Leukocyte Esterase 3+ (NEGATIVE) H Urine RBC 5-10 /HPF (0 - 2) H Urine WBC Tntc /HPF (0 - 2) H Urine Squamous Epithelial Cells Moderate /LPF (NONE/OCC) H Urine Bacteria Moderate /HPF (NONE) H Current Medications Medications (Trade) Dose Ordered Sig/Shiraz Route PRN Reason Start Time Stop Time Status Last Admin Dose Admin Acetaminophen (Tylenol) 650 mg Q6H PRN ORAL Mild Pain/Temp > 100.5 12/09/17 21:00 01/08/18 20:59 Aspirin (Ecotrin) 81 mg DAILY ORAL 12/10/17 09:00 01/09/18 08:59 12/10/17 09:36 Ceftriaxone Sodium 1 gm/ Dextrose 55 ml @ 110 mls/hr Q24H IVPB 12/09/17 22:00 12/16/17 21:59 12/09/17 22:10 Diltiazem HCl (Cardizem) 60 mg EVERY 8 HOURS ORAL 12/10/17 06:00 01/09/18 05:59 12/10/17 06:19 Divalproex Sodium (Depakote) 250 mg EVERY 12 HOURS ORAL 12/10/17 09:00 01/09/18 08:59 12/10/17 09:36 Docusate Sodium (Colace) 100 mg DAILY ORAL 12/10/17 09:00 01/09/18 08:59 12/10/17 09:35 Escitalopram Oxalate (Lexapro) 5 mg DAILY ORAL 12/10/17 09:00 01/09/18 08:59 12/10/17 09:36 Hydralazine HCl (Apresoline) 10 mg EVERY 6 HOURS ORAL 12/10/17 00:00 01/09/18 00:00 12/10/17 06:19 Hydralazine HCl (Apresoline) 10 mg Q6H PRN ORAL SBP > 160mmHg 12/10/17 10:15 01/09/18 10:14 12/10/17 10:31 Lorazepam (Ativan 2mg/ml 1ml) 0.5 mg EVERY 12 HOURS PRN IM For Anxiety 12/09/17 23:15 12/16/17 23:14 Magnesium Hydroxide (Mom) 30 ml DAILY ORAL 12/10/17 09:00 01/09/18 08:59 Morphine Sulfate (Morphine Sulfate) 4 mg Q3H PRN IVP For Pain 12/09/17 21:00 12/16/17 20:59 12/10/17 10:31 Multivitamins Therapeutic (Therapeutic Multivitamin) 1 ea DAILY ORAL 12/10/17 09:00 01/09/18 08:59 12/10/17 09:36 Ondansetron HCl (Zofran) 4 mg Q4H PRN IVP Nausea & Vomiting 12/09/17 21:00 01/08/18 20:59 12/10/17 06:19 Phenazopyridine HCl (Pyridium) 200 mg THREE TIMES A DAY ORAL 12/10/17 09:00 01/09/18 08:59 12/10/17 09:35 Polyethylene Glycol (Miralax) 17 gm BEDTIME ORAL 12/10/17 21:00 01/09/18 20:59 Aleisha Coronel MD Dec 10, 2017 12:04
--- NOTE | 2017-12-10 16:57 | History and Physical ---
History of Present Illness General Date patient seen: Dec 10, 2017 Time patient seen: 10:00 Reason for Hospitalization: sepsis, UTI Present Illness HPI 67y/o female with pmh of HTN, depression, schizophrenia, venous stasis, and chronic lymphedema who presents with dysuria and emesis. Pt currently residing in SNF. She notes dysuria and suprapubic pain x 1-2 days. Also notes subjective fevers and nausea w/ nb/nb emesis x 1. Denies chest pain, SOB, d/c, dizziness. States that she has a "kidney infection". Pt also notes worsening left leg swelling w/ some redness. In ED, pt found to have a UTI. She was given ceftriaxone. PMH/PSH HTN Depression Schizophrenia Obesity Chronic venous stasis Chronic lymphedema FMH Denies SH Resides in SNF currently Pt states she smokes a few cig/wk Denies alcohol and drug use Allergies: Coded Allergies: HALOPERIDOL (Verified Allergy, Unknown, 01/28/09) HALOPERIDOL LACTATE (Unverified Allergy, Unknown, 07/30/16) VANCOMYCIN (Unverified Adverse Reaction, Intermediate, Shortness of Breath , 06/26/13) Medication History Scheduled Aspirin* (Aspir-Low*), 81 MG ORAL DAILY, (Reported) Bimatoprost (Lumigan), 1 DROP BOTH EYES HS, (Reported) Carbamide Peroxide (Debrox), 3 DROP LEFT EAR THREE TIMES A DAY, (Reported) Diltiazem Hcl* (Cardizem*), 60 MG ORAL EVERY 8 HOURS, (Reported) Divalproex Sodium* (Depakote*), 500 MG PO BID, (Reported) Docusate Sodium* (Colace*), 100 MG ORAL DAILY, (Reported) Escitalopram Oxalate (Escitalopram Oxalate*), 5 MG ORAL DAILY, (Reported) Estrogens Conjugated (Premarin), 42.5 GM VG HS, (Reported) Estrogens,Conjugated (Premarin), 0.3 MG ORAL DAILY, (Reported) Hydralazine Hcl* (Hydralazine Hcl*), 10 MG ORAL EVERY 6 HOURS, (Reported) Latanoprost/Pf (Latanoprost 0.005% Eye Drop), 1 DROP OP DAILY, (Reported) Magnesium Hydroxide* (Milk Of Magnesia*), 30 ML ORAL DAILY, (Reported) Meropenem (Meropenem), 1 GM IV Q8H Multivitamin With Minerals (Multivitamins With Minerals*), 1 TAB ORAL DAILY, ( Reported) Phenazopyridine Hcl* (Pyridium*), 200 MG ORAL THREE TIMES A DAY, (Reported) Polyethylene Glycol 3350* (Polyethylene Glycol 3350*), 17 GM ORAL DAILY, ( Reported) Scheduled PRN Acetaminophen* (Acetaminophen 325MG Tablet*), 325 MG ORAL Q4H PRN for Mild Pain/ Temp > 100.5, (Reported) Albuterol Sulfate* (Albuterol Sulfate Hhn*), 3 ML INH Q6H PRN for Shortness of Breath, (Reported) Hydrocodone Bit/Acetaminophen 5-325* ([place] 5-325 Tablet*), 1 TAB ORAL Q4H PRN for Severe Pain (Pain Scale 7-10), (Reported) Lorazepam* (Lorazepam*), 0.5 MG IM EVERY 12 HOURS PRN for For Anxiety, (Reported ) Patient History History Provided By: Patient, Medical Record Healthcare decision maker Resuscitation status Do Not Resuscitate Advanced Directive on File Review of Systems Constitutional: Reports: fever Eye: Reports: no symptoms ENT: Reports: no symptoms Respiratory: Reports: no symptoms Cardiovascular: Reports: edema Gastrointestinal: Reports: nausea, vomiting Genitourinary: Reports: dysuria, pain Musculoskeletal: Reports: no symptoms Skin: Reports: no symptoms Psychiatric: Reports: no symptoms Neurological: Reports: no symptoms Endocrine: Reports: no symptoms Hematologic/Lymphatic: Reports: no symptoms Physical Exam Physical Exam Narrative General: alert, cooperative, no distress, appears stated age Head: normocephalic, without obvious abnormality, atraumatic Eyes: conjunctivae/corneas clear. PERRL, EOM's intact Throat: lips, mucosa, and tongue normal. MMM Neck: supple, symmetrical, trachea midline, and no JVD Lungs: clear to auscultation bilaterally Heart: regular rate and rhythm, S1, S2 normal, no murmur, click, rub or gallop Abdomen: soft, non-tender, non-distended, bowel sounds normal; no masses or organomegaly : +suprapubic TTP, no CVAT Extremities: extremities normal, atraumatic, no cyanosis or edema Pulses: 2+ and symmetric Skin: s+L>R LLE edema, +chronic venous stasis changes, + area of erythema on LLE Neurologic: grossly normal, no focal deficits Last 24 Hour Vital Signs Date Time Temp Pulse Resp B/P (MAP) Pulse Ox O2 Delivery O2 Flow Rate FiO2 12/10/17 16:25 97.4 12/10/17 16:00 97.4 96 23 150/124 (133) 97 97.4 12/10/17 13:50 97.2 12/10/17 13:20 97.2 12/10/17 13:15 196/99 12/10/17 13:15 69 196/99 12/10/17 12:00 97.2 69 19 196/99 (131) 96 97.2 12/10/17 10:31 176/75 12/10/17 10:31 96.9 12/10/17 09:00 Room Air 12/10/17 08:00 97.2 69 18 176/75 (108) 94 97.2 12/10/17 07:30 96.9 12/10/17 06:19 180/97 12/10/17 06:19 68 180/97 12/10/17 04:00 96.9 64 20 160/96 (117) 94 96.9 12/10/17 00:50 163/95 12/10/17 00:00 163/95 (117) 12/09/17 22:38 Room Air 12/09/17 20:40 98.6 63 24 146/74 (98) 94 98.6 12/09/17 20:15 63 24 146/74 94 Room Air 12/09/17 20:15 63 24 146/74 94 Room Air 12/09/17 20:09 63 24 146/74 94 Room Air 12/09/17 19:20 97.8 12/09/17 17:51 64 13 157/73 95 Room Air 12/09/17 16:57 97.8 86 18 170/86 93 Room Air 97.9 Intake and Output 12/09/17 12/10/17 19:00 07:00 Intake Total 850 ml Output Total 2500 ml Balance -1650 ml Intake Oral 250 ml IV Total 600 ml Output Urine Total 2500 ml Laboratory Tests Test 12/09/17 17:40 12/09/17 18:10 12/09/17 19:10 12/10/17 06:40 White Blood Count 5.1 K/UL (4.8-10.8) 4.0 K/UL (4.8-10.8) L Red Blood Count 4.45 M/UL (4.20-5.40) 4.45 M/UL (4.20-5.40) Hemoglobin 11.9 G/DL (12.0-16.0) L 11.9 G/DL (12.0-16.0) L Hematocrit 36.8 % (37.0-47.0) L 37.3 % (37.0-47.0) Mean Corpuscular Volume 83 FL (80-99) 84 FL (80-99) Mean Corpuscular Hemoglobin 26.7 PG (27.0-31.0) L 26.8 PG (27.0-31.0) L Mean Corpuscular Hemoglobin Concent 32.3 G/DL (32.0-36.0) 32.0 G/DL (32.0-36.0) Red Cell Distribution Width 14.5 % (11.6-14.8) 15.3 % (11.6-14.8) H Platelet Count 185 K/UL (150-450) 153 K/UL (150-450) Mean Platelet Volume 6.7 FL (6.5-10.1) 6.8 FL (6.5-10.1) Neutrophils (%) (Auto) 56.3 % (45.0-75.0) 62.7 % (45.0-75.0) Lymphocytes (%) (Auto) 33.1 % (20.0-45.0) 25.1 % (20.0-45.0) Monocytes (%) (Auto) 7.9 % (1.0-10.0) 8.9 % (1.0-10.0) Eosinophils (%) (Auto) 1.8 % (0.0-3.0) 2.2 % (0.0-3.0) Basophils (%) (Auto) 0.9 % (0.0-2.0) 1.2 % (0.0-2.0) Sodium Level 140 MMOL/L (136-145) 140 MMOL/L (136-145) Potassium Level 4.0 MMOL/L (3.5-5.1) 3.9 MMOL/L (3.5-5.1) Chloride Level 106 MMOL/L (98-107) 105 MMOL/L (98-107) Carbon Dioxide Level 26 MMOL/L (21-32) 28 MMOL/L (21-32) Anion Gap 8 mmol/L (5-15) 7 mmol/L (5-15) Blood Urea Nitrogen 27 mg/dL (7-18) H 18 mg/dL (7-18) Creatinine 0.9 MG/DL (0.55-1.30) 0.7 MG/DL (0.55-1.30) Estimat Glomerular Filtration Rate > 60 mL/min (>60) > 60 mL/min (>60) Glucose Level 124 MG/DL (74-106) H 99 MG/DL (74-106) Lactic Acid Level 2.40 mmol/L (0.4-2.0) H 2.00 mmol/L (0.66-2.22) Calcium Level 9.5 MG/DL (8.5-10.1) 8.3 MG/DL (8.5-10.1) L Total Bilirubin 0.3 MG/DL (0.2-1.0) Aspartate Amino Transf (AST/SGOT) 9 U/L (15-37) L Alanine Aminotransferase (ALT/SGPT) 14 U/L (12-78) Alkaline Phosphatase 90 U/L (46-116) Total Protein 7.5 G/DL (6.4-8.2) Albumin 3.1 G/DL (3.4-5.0) L Globulin 4.4 g/dL Albumin/Globulin Ratio 0.7 (1.0-2.7) L Urine Color [place] Urine Appearance Slightly cloudy Urine pH 6 (4.5-8.0) Urine Specific [place] 1.015 (1.005-1.035) Urine Protein 2+ (NEGATIVE) H Urine Glucose (UA) Negative (NEGATIVE) Urine Ketones 1+ (NEGATIVE) H Urine Blood 2+ (NEGATIVE) H Urine Nitrite Positive (NEGATIVE) H Urine Bilirubin 2+ (NEGATIVE) H Urine Ictotest Negative (NEGATIVE) Urine Urobilinogen 8 MG/DL (0.0-1.0) H Urine Leukocyte Esterase 3+ (NEGATIVE) H Urine RBC 5-10 /HPF (0 - 2) H Urine WBC Tntc /HPF (0 - 2) H Urine Squamous Epithelial Cells Moderate /LPF (NONE/OCC) H Urine Bacteria Moderate /HPF (NONE) H Height (Feet): 5 Height (Inches): 0.00 Weight (Pounds): 250 Medications Current Medications Medications (Trade) Dose Ordered Sig/Shiraz Route PRN Reason Start Time Stop Time Status Last Admin Dose Admin Acetaminophen (Tylenol) 650 mg Q6H PRN ORAL Mild Pain/Temp > 100.5 12/09/17 21:00 01/08/18 20:59 Aspirin (Ecotrin) 81 mg DAILY ORAL 12/10/17 09:00 01/09/18 08:59 12/10/17 09:36 Ceftriaxone Sodium 1 gm/ Dextrose 55 ml @ 110 mls/hr Q24H IVPB 12/09/17 22:00 12/16/17 21:59 12/09/17 22:10 Diltiazem HCl (Cardizem) 60 mg EVERY 8 HOURS ORAL 12/10/17 06:00 01/09/18 05:59 12/10/17 13:15 Divalproex Sodium (Depakote) 250 mg EVERY 12 HOURS ORAL 12/10/17 09:00 01/09/18 08:59 12/10/17 09:36 Docusate Sodium (Colace) 100 mg DAILY ORAL 12/10/17 09:00 01/09/18 08:59 12/10/17 09:35 Doxycycline Hyclate 100 mg/ Dextrose 100 ml @ 100 mls/hr Q12HR IV 12/10/17 21:00 12/17/17 20:59 Escitalopram Oxalate (Lexapro) 5 mg DAILY ORAL 12/10/17 09:00 01/09/18 08:59 12/10/17 09:36 Hydralazine HCl (Apresoline) 10 mg EVERY 6 HOURS ORAL 12/10/17 00:00 01/09/18 00:00 12/10/17 13:15 Hydralazine HCl (Apresoline) 10 mg Q6H PRN ORAL SBP > 160mmHg 12/10/17 10:15 01/09/18 10:14 12/10/17 10:31 Lorazepam (Ativan 2mg/ml 1ml) 0.5 mg EVERY 12 HOURS PRN IM For Anxiety 12/09/17 23:15 12/16/17 23:14 Magnesium Hydroxide (Mom) 30 ml DAILY ORAL 12/10/17 09:00 01/09/18 08:59 Morphine Sulfate (Morphine Sulfate) 4 mg Q3H PRN IVP For Pain 12/09/17 21:00 12/16/17 20:59 12/10/17 16:25 Multivitamins Therapeutic (Therapeutic Multivitamin) 1 ea DAILY ORAL 12/10/17 09:00 01/09/18 08:59 12/10/17 09:36 Ondansetron HCl (Zofran) 4 mg Q4H PRN IVP Nausea & Vomiting 12/09/17 21:00 01/08/18 20:59 12/10/17 15:24 Phenazopyridine HCl (Pyridium) 200 mg THREE TIMES A DAY ORAL 12/10/17 09:00 01/09/18 08:59 12/10/17 12:15 Polyethylene Glycol (Miralax) 17 gm BEDTIME ORAL 12/10/17 21:00 01/09/18 20:59 Assessment/Plan Problem List: (1) Sepsis ICD Codes: A41.9 - Sepsis, unspecified organism SNOMED: 74722459 Qualifiers: Qualified Codes: A41.9 - Sepsis, unspecified organism (2) Lactic acidosis ICD Codes: E87.2 - Acidosis SNOMED: 91053090 (3) UTI (urinary tract infection) ICD Codes: N39.0 - Urinary tract infection, site not specified SNOMED: 00280687 (4) Chronic venous stasis ICD Codes: I87.8 - Other specified disorders of veins SNOMED: 15003017 (5) Left leg cellulitis ICD Codes: L03.116 - Cellulitis of left lower limb SNOMED: 549997200 (6) Lymphadema (7) Nausea and vomiting ICD Codes: R11.2 - Nausea with vomiting, unspecified SNOMED: 94980961 Status: stable Assessment/Plan Pt with sepsis 2/2 acute UTI, likely cystitis. Also w/ area of cellulitis on LLE. - Admit inpt - ID consulted - Empiric ceftriaxone for UTI (12/09-) - Doxycycline added for coverage of LLE cellulitis (12/10-)- - Check venous duplex BLE - F/u urine cx - F/u blood cx - Trend lactate - IVFs - Wound care - Pain control, bowel regimen - Nausea control - Supportive care DVT Prophylaxis: HSQ Code Status: Full Hospital Classification Declaration: Based on this initial evaluation, and depending on the patient's clinical course, I anticipate that this patient will require hospitalization for 2-3 days for sepsis, UTI, cellulitis, and close respiratory/hemodynamic monitoring. Disposition: Once the patient is stable to leave the hospital, I anticipate the patient will likely be discharged to the following environment: back to SNF I spent 70 minutes on this patient's case, and >50% was dedicated to counseling and/or care coordination. Discussed with patient/family, nursing staff, SW/CM, ID regarding clinical status, treatment course, and disposition planning. Time of note may not reflect time of encounter. Erickson Barker M.D. Dec 10, 2017 16:56
[2017-12-10] MEDS: Heparin 5000 units/ml inj SUBQ SCH (21:00)
[2017-12-10] MEDS: Miralax 17gm pkt ORAL SCH (21:00)
[2017-12-10] MEDS: cefTRIAXone 1 GM in D5W 55 ML IVPB SCH (22:13)
--- NOTE | 2017-12-10 23:23 | Consultation ---
History of Present Illness General Date patient seen: Dec 10, 2017 Chief Complaint: Female Urogenital Problems Present Illness HPI 67y/o female with pmh of HTN, depression, schizophrenia, venous stasis, and chronic lymphedema who presents with dysuria and emesis. The pt was anxious and paranoid, she c/o depressed mood and anhedonia. no si/hi Allergies: Coded Allergies: HALOPERIDOL (Verified Allergy, Unknown, 01/28/09) HALOPERIDOL LACTATE (Unverified Allergy, Unknown, 07/30/16) VANCOMYCIN (Unverified Adverse Reaction, Intermediate, Shortness of Breath , 06/26/13) Medication History Scheduled Aspirin* (Aspir-Low*), 81 MG ORAL DAILY, (Reported) Bimatoprost (Lumigan), 1 DROP BOTH EYES HS, (Reported) Carbamide Peroxide (Debrox), 3 DROP LEFT EAR THREE TIMES A DAY, (Reported) Diltiazem Hcl* (Cardizem*), 60 MG ORAL EVERY 8 HOURS, (Reported) Divalproex Sodium* (Depakote*), 500 MG PO BID, (Reported) Docusate Sodium* (Colace*), 100 MG ORAL DAILY, (Reported) Escitalopram Oxalate (Escitalopram Oxalate*), 5 MG ORAL DAILY, (Reported) Estrogens Conjugated (Premarin), 42.5 GM VG HS, (Reported) Estrogens,Conjugated (Premarin), 0.3 MG ORAL DAILY, (Reported) Hydralazine Hcl* (Hydralazine Hcl*), 10 MG ORAL EVERY 6 HOURS, (Reported) Latanoprost/Pf (Latanoprost 0.005% Eye Drop), 1 DROP OP DAILY, (Reported) Magnesium Hydroxide* (Milk Of Magnesia*), 30 ML ORAL DAILY, (Reported) Meropenem (Meropenem), 1 GM IV Q8H Multivitamin With Minerals (Multivitamins With Minerals*), 1 TAB ORAL DAILY, ( Reported) Phenazopyridine Hcl* (Pyridium*), 200 MG ORAL THREE TIMES A DAY, (Reported) Polyethylene Glycol 3350* (Polyethylene Glycol 3350*), 17 GM ORAL DAILY, ( Reported) Scheduled PRN Acetaminophen* (Acetaminophen 325MG Tablet*), 325 MG ORAL Q4H PRN for Mild Pain/ Temp > 100.5, (Reported) Albuterol Sulfate* (Albuterol Sulfate Hhn*), 3 ML INH Q6H PRN for Shortness of Breath, (Reported) Hydrocodone Bit/Acetaminophen 5-325* ([place] 5-325 Tablet*), 1 TAB ORAL Q4H PRN for Severe Pain (Pain Scale 7-10), (Reported) Lorazepam* (Lorazepam*), 0.5 MG IM EVERY 12 HOURS PRN for For Anxiety, (Reported ) Patient History Limited by: medical condition History Provided By: Patient, Medical Record, PMD Healthcare decision maker Resuscitation status Do Not Resuscitate Advanced Directive on File Past Medical/Surgical History Past Medical/Surgical History: (1) Constipation (2) Essential hypertension (3) Lymphedema (4) Lymphedema (5) Anemia (6) Obesity (7) ESBL urine (8) chronic lymphedema (9) Tinea cruris (10) Onychomycosis (11) Emesis (12) Cough (13) Opiate dependence (14) Opiate dependence (15) Opiate dependence (16) Opiate dependence (17) GERD (gastroesophageal reflux disease) (18) Abdominal pain (19) Chest pain (20) Chronic ulcer of leg (21) Chronic ulcer of leg (22) Chronic ulcer of leg (23) Smoker (24) Acute chest pain (25) Encounter for dressing change or suture removal (26) Acute encephalopathy (27) Encounter for wound re-check (28) Intractable nausea and vomiting (29) Infection due to ESBL-producing Escherichia coli (30) Change of dressing (31) Change of dressing (32) Change of dressing (33) Change of dressing (34) Change of dressing (35) Change of dressing (36) Change of dressing (37) Change of dressing (38) Lymphadema (39) Lymphedema (40) Lymphedema (41) Lymphedema (42) Lymphedema (43) Lymphedema (44) Lymphedema (45) Open wound of foot (46) Open wound of foot (47) cellulitis (48) hypertension uncontrolled (49) hypertension uncontrolled (50) hypertension uncontrolled (51) hypertension uncontrolled (52) hypertension uncontrolled (53) tenia corpus (54) Pyelonephritis (55) Sepsis (56) Lactic acidosis (57) UTI (urinary tract infection) (58) Left leg cellulitis (59) Chronic venous stasis (60) Lymphadema (61) Nausea and vomiting Review of Systems Psychiatric: Reports: prior hx, anxiety, depressed feelings, emotional problems Physical Exam General Appearance: no apparent distress, alert Neurologic: oriented x 3, responsive, depressed affect Last 24 Hour Vital Signs Date Time Temp Pulse Resp B/P (MAP) Pulse Ox O2 Delivery O2 Flow Rate FiO2 12/10/17 21:05 75 161/85 12/10/17 21:00 Room Air 12/10/17 20:00 98.0 75 19 161/85 (110) 92 98.0 12/10/17 17:25 150/124 12/10/17 16:55 97.4 12/10/17 16:25 97.4 12/10/17 16:00 97.4 96 23 150/124 (133) 97 97.4 12/10/17 13:20 97.2 12/10/17 13:15 196/99 12/10/17 13:15 69 196/99 12/10/17 12:00 97.2 69 19 196/99 (131) 96 97.2 12/10/17 10:31 176/75 12/10/17 10:31 96.9 12/10/17 09:00 Room Air 12/10/17 08:00 97.2 69 18 176/75 (108) 94 97.2 12/10/17 07:30 96.9 12/10/17 06:19 180/97 12/10/17 06:19 68 180/97 12/10/17 04:00 96.9 64 20 160/96 (117) 94 96.9 12/10/17 00:50 163/95 12/10/17 00:00 163/95 (117) Intake and Output 12/09/17 12/10/17 19:00 07:00 Intake Total 850 ml Output Total 2500 ml Balance -1650 ml Intake Oral 250 ml IV Total 600 ml Output Urine Total 2500 ml Laboratory Tests Test 12/10/17 06:40 White Blood Count 4.0 K/UL (4.8-10.8) L Red Blood Count 4.45 M/UL (4.20-5.40) Hemoglobin 11.9 G/DL (12.0-16.0) L Hematocrit 37.3 % (37.0-47.0) Mean Corpuscular Volume 84 FL (80-99) Mean Corpuscular Hemoglobin 26.8 PG (27.0-31.0) L Mean Corpuscular Hemoglobin Concent 32.0 G/DL (32.0-36.0) Red Cell Distribution Width 15.3 % (11.6-14.8) H Platelet Count 153 K/UL (150-450) Mean Platelet Volume 6.8 FL (6.5-10.1) Neutrophils (%) (Auto) 62.7 % (45.0-75.0) Lymphocytes (%) (Auto) 25.1 % (20.0-45.0) Monocytes (%) (Auto) 8.9 % (1.0-10.0) Eosinophils (%) (Auto) 2.2 % (0.0-3.0) Basophils (%) (Auto) 1.2 % (0.0-2.0) Sodium Level 140 MMOL/L (136-145) Potassium Level 3.9 MMOL/L (3.5-5.1) Chloride Level 105 MMOL/L (98-107) Carbon Dioxide Level 28 MMOL/L (21-32) Anion Gap 7 mmol/L (5-15) Blood Urea Nitrogen 18 mg/dL (7-18) Creatinine 0.7 MG/DL (0.55-1.30) Estimat Glomerular Filtration Rate > 60 mL/min (>60) Glucose Level 99 MG/DL (74-106) Calcium Level 8.3 MG/DL (8.5-10.1) L Height (Feet): 5 Height (Inches): 0.00 Weight (Pounds): 250 Medications Current Medications Medications (Trade) Dose Ordered Sig/Shiraz Route PRN Reason Start Time Stop Time Status Last Admin Dose Admin Acetaminophen (Tylenol) 650 mg Q6H PRN ORAL Mild Pain/Temp > 100.5 12/09/17 21:00 01/08/18 20:59 12/10/17 22:13 Aspirin (Ecotrin) 81 mg DAILY ORAL 12/10/17 09:00 01/09/18 08:59 12/10/17 09:36 Ceftriaxone Sodium 1 gm/ Dextrose 55 ml @ 110 mls/hr Q24H IVPB 12/09/17 22:00 12/16/17 21:59 12/10/17 22:13 Diltiazem HCl (Cardizem) 60 mg EVERY 8 HOURS ORAL 12/10/17 06:00 01/09/18 05:59 12/10/17 21:05 Divalproex Sodium (Depakote) 250 mg EVERY 12 HOURS ORAL 12/10/17 09:00 01/09/18 08:59 12/10/17 21:05 Docusate Sodium (Colace) 100 mg DAILY ORAL 12/10/17 09:00 01/09/18 08:59 12/10/17 09:35 Doxycycline Hyclate 100 mg/ Dextrose 100 ml @ 100 mls/hr Q12HR IV 12/10/17 21:00 12/17/17 20:59 12/10/17 21:04 Escitalopram Oxalate (Lexapro) 5 mg DAILY ORAL 12/10/17 09:00 01/09/18 08:59 12/10/17 09:36 Heparin Sodium (Porcine) (Heparin 5000 units/ml) 5,000 units EVERY 12 HOURS SUBQ 12/10/17 21:00 01/09/18 20:59 Hydralazine HCl (Apresoline) 10 mg EVERY 6 HOURS ORAL 12/10/17 00:00 01/09/18 00:00 12/10/17 17:25 Hydralazine HCl (Apresoline) 10 mg Q6H PRN ORAL SBP > 160mmHg 12/10/17 10:15 01/09/18 10:14 12/10/17 10:31 Lorazepam (Ativan 2mg/ml 1ml) 0.5 mg EVERY 12 HOURS PRN IM For Anxiety 12/09/17 23:15 12/16/17 23:14 Magnesium Hydroxide (Mom) 30 ml DAILY ORAL 12/10/17 09:00 01/09/18 08:59 Morphine Sulfate (Morphine Sulfate) 4 mg Q3H PRN IVP For Pain 12/09/17 21:00 12/16/17 20:59 12/10/17 22:33 Multivitamins Therapeutic (Therapeutic Multivitamin) 1 ea DAILY ORAL 12/10/17 09:00 01/09/18 08:59 12/10/17 09:36 Ondansetron HCl (Zofran) 4 mg Q4H PRN IVP Nausea & Vomiting 12/09/17 21:00 01/08/18 20:59 12/10/17 19:32 Phenazopyridine HCl (Pyridium) 200 mg THREE TIMES A DAY ORAL 12/10/17 09:00 01/09/18 08:59 12/10/17 17:24 Polyethylene Glycol (Miralax) 17 gm BEDTIME ORAL 12/10/17 21:00 01/09/18 20:59 Assessment/Plan Assessment/Plan Schizophrenia MDD the pt is not a dts/dto -cont [facility] [place] level -increase lexapro 10mg Harris Strong MD Dec 10, 2017 23:23
[2017-12-11] VITALS: BP 174/97
[2017-12-11] MEDS: HydrALAZINE 10mg Tab ORAL SCH ×5 (00:28→23:34)
[2017-12-11] MEDS: Morphine Sulfate 4mg/ml Inj (IV USE ONLY) IVP PRN ×8 (01:34→23:34)
[2017-12-11 04:00] VITALS: BP 176/97
[2017-12-11] MEDS: dilTIAZem HCl 60mg tab ORAL SCH ×3 (05:50→21:25)
[2017-12-11 07:32] LABS: BASOPHILS % (AUTO) 0.7 % (0.0-2.0); EOSINOPHILS % (AUTO) 1.1 % (0.0-3.0); HEMATOCRIT 37.4 % (37.0-47.0); LYMPHOCYTES % (AUTO) 28.7 % (20.0-45.0); MEAN CORPUSCULAR VOLUME 84 FL (80-99); MONOCYTES % (AUTO) 12.9 % (1.0-10.0); NEUTROPHILS % (AUTO) 56.6 % (45.0-75.0); PLATELET COUNT 168 K/UL (150-450); RED BLOOD COUNT 4.46 M/UL (4.20-5.40); RED CELL DISTRIBUTION WIDTH 14.9 % (11.6-14.8); WHITE BLOOD COUNT 4.5 K/UL (4.8-10.8)
[2017-12-11 07:59] LABS: ANION GAP 6 mmol/L (5-15); BLOOD UREA NITROGEN 13 mg/dL (7-18); CALCIUM 8.8 MG/DL (8.5-10.1); CARBON DIOXIDE 29 MMOL/L (21-32); CHLORIDE 103 MMOL/L (98-107); CREATININE 0.7 MG/DL (0.55-1.30); SODIUM 138 MMOL/L (136-145)
[2017-12-11 08:00] VITALS: BP 152/103
[2017-12-11] MEDS: Multivitamin w/Minerals tab ORAL SCH (08:50)
[2017-12-11] MEDS: Docusate 100mg cap ORAL SCH (08:50)
[2017-12-11] MEDS: Aspirin EC 81mg tab ORAL SCH (08:50)
[2017-12-11] MEDS: Phenazopyridine 200mg tab ORAL SCH ×3 (08:51→17:36)
[2017-12-11] MEDS: Milk of Magnesia 30ml Ud ORAL SCH ×2 (08:51→09:00)
[2017-12-11] MEDS: Heparin 5000 units/ml inj SUBQ SCH ×2 (08:56→21:27)
--- NOTE | 2017-12-11 09:03 | Consultation ---
Consult Note Consult Note DATE OF CONSULTATION: 12/10/2017 HEMATOLOGY-ONCOLOGY CONSULTATION REFERRING PHYSICIAN: Ignacia Blackwood M.D. REASON FOR CONSULTATION: Evaluation of leukopenia HISTORY OF PRESENT ILLNESS: 67y/o female with pmh of HTN, depression, schizophrenia, venous stasis, and chronic lymphedema who presents with dysuria and emesis. Pt is a current SNF resident. She reports dysuria and suprapubic pain x 1-2 days. Also reports subjective fevers and nausea w/ nb/nb emesis x 1. Denies chest pain, SOB, d/c, dizziness. States that she has a "kidney infection ". Pt also notes worsening left leg swelling w/ some redness. In ED, pt found to have a UTI. She was given ceftriaxone. I have been consulted for the evaluation and management of leukopenia. Pt with a current WBC of 4.0 and is on abx. PAST MEDICAL HISTORY: HTN, Depression, Schizophrenia, Obesity, Chronic venous stasis, Chronic lymphedema PAST SURGICAL HISTORY: Unknown FAMILY HISTORY: Denies SOCIAL HISTORY: Resides in [facility] currently. Pt states she smokes a few cig/wk. Denies alcohol and drug use Allergies: HALOPERIDOL , HALOPERIDOL LACTATE, VANCOMYCIN Medication History Scheduled Aspirin* (Aspir-Low*), 81 MG ORAL DAILY, (Reported) Bimatoprost (Lumigan), 1 DROP BOTH EYES HS, (Reported) Carbamide Peroxide (Debrox), 3 DROP LEFT EAR THREE TIMES A DAY, (Reported) Diltiazem Hcl* (Cardizem*), 60 MG ORAL EVERY 8 HOURS, (Reported) Divalproex Sodium* (Depakote*), 500 MG PO BID, (Reported) Docusate Sodium* (Colace*), 100 MG ORAL DAILY, (Reported) Escitalopram Oxalate (Escitalopram Oxalate*), 5 MG ORAL DAILY, (Reported) Estrogens Conjugated (Premarin), 42.5 GM VG HS, (Reported) Estrogens,Conjugated (Premarin), 0.3 MG ORAL DAILY, (Reported) Hydralazine Hcl* (Hydralazine Hcl*), 10 MG ORAL EVERY 6 HOURS, (Reported) Latanoprost/Pf (Latanoprost 0.005% Eye Drop), 1 DROP OP DAILY, (Reported) Magnesium Hydroxide* (Milk Of Magnesia*), 30 ML ORAL DAILY, (Reported) Meropenem (Meropenem), 1 GM IV Q8H Multivitamin With Minerals (Multivitamins With Minerals*), 1 TAB ORAL DAILY, ( Reported) Phenazopyridine Hcl* (Pyridium*), 200 MG ORAL THREE TIMES A DAY, (Reported) Polyethylene Glycol 3350* (Polyethylene Glycol 3350*), 17 GM ORAL DAILY, ( Reported) Scheduled PRN Acetaminophen* (Acetaminophen 325MG Tablet*), 325 MG ORAL Q4H PRN for Mild Pain/ Temp > 100.5, (Reported) Albuterol Sulfate* (Albuterol Sulfate Hhn*), 3 ML INH Q6H PRN for Shortness of Breath, (Reported) Hydrocodone Bit/Acetaminophen 5-325* ([place] 5-325 Tablet*), 1 TAB ORAL Q4H PRN for Severe Pain (Pain Scale 7-10), (Reported) Lorazepam* (Lorazepam*), 0.5 MG IM EVERY 12 HOURS PRN for For Anxiety, (Reported ) Patient History History Provided By: Patient, Medical Record Healthcare decision maker Resuscitation status Do Not Resuscitate Advanced Directive on File Review of Systems Constitutional: Reports: fever Eye: Reports: no symptoms ENT: Reports: no symptoms Respiratory: Reports: no symptoms Cardiovascular: Reports: edema Gastrointestinal: Reports: nausea, vomiting Genitourinary: Reports: dysuria, pain Musculoskeletal: Reports: no symptoms Skin: Reports: no symptoms Psychiatric: Reports: no symptoms Neurological: Reports: no symptoms Endocrine: Reports: no symptoms Hematologic/Lymphatic: Reports: no symptoms Physical Exam Physical Exam Narrative General: alert, cooperative, no distress, appears stated age Head: normocephalic, without obvious abnormality, atraumatic Eyes: conjunctivae/corneas clear. PERRL, EOM's intact Throat: lips, mucosa, and tongue normal. MMM Neck: supple, symmetrical, trachea midline, and no JVD Lungs: clear to auscultation bilaterally Heart: regular rate and rhythm, S1, S2 normal, no murmur, click, rub or gallop Abdomen: soft, non-tender, non-distended, bowel sounds normal; no masses or organomegaly : +suprapubic TTP, no CVAT Extremities: extremities normal, atraumatic, no cyanosis or edema Pulses: 2+ and symmetric Skin: s+L>R LLE edema, +chronic venous stasis changes, + area of erythema on LLE Neurologic: grossly normal, no focal deficits Assessment/Plan # Leukopenia. Wbc of 5.0 upon admission. Is likely related to HEPATITIS C --> Continue antibiotics with ID service, appreciate recs --> Monitor wbc count and administer neupogen as needed or d/c certain med --> Obtain HIV and make sure no active infection --> in addition, obtain US of the abdomen # Coagulopathy with nml PT/INR --> vit K on prn basis # Anemia, mild. Obtain w/u if Hgb drops below 10. # Sepsis. # Lactic Acidosis. Trend lactate. # Left Leg Cellulitis. Doxcycline added for coverage of LLE cellulitis. --> Wound care. # UTI. Empiric ceftriaxone. --> F/U urine culture. I GREATLY APPRECIATE CONSULTATION Yao Aden MD Dec 11, 2017 09:02
[2017-12-11 12:00] VITALS: BP 153/85
--- NOTE | 2017-12-11 15:03 | General Progress Note ---
Assessment/Plan Problem List: (1) Sepsis ICD Codes: A41.9 - Sepsis, unspecified organism SNOMED: 70491354 Qualifiers: Qualified Codes: A41.9 - Sepsis, unspecified organism (2) Lactic acidosis ICD Codes: E87.2 - Acidosis SNOMED: 44025092 (3) UTI (urinary tract infection) ICD Codes: N39.0 - Urinary tract infection, site not specified SNOMED: 67609254 (4) Left leg cellulitis ICD Codes: L03.116 - Cellulitis of left lower limb SNOMED: 371591645 (5) Chronic venous stasis ICD Codes: I87.8 - Other specified disorders of veins SNOMED: 28756229 (6) Lymphadema (7) Nausea and vomiting ICD Codes: R11.2 - Nausea with vomiting, unspecified SNOMED: 39393328 Status: stable Assessment/Plan Pt with sepsis 2/2 acute UTI, likely cystitis. Also w/ area of cellulitis on LLE. - ID consulted - Empiric ceftriaxone for UTI (12/09-) - Doxycycline added for coverage of LLE cellulitis (12/10-)- - Check venous duplex BLE - F/u urine cx--pending - F/u blood cx--ngtd - Trend lactate--normalized - s/p IVFs - Wound care - Pain control, bowel regimen - Nausea control - Supportive care - Likely d/c tomorrow pending urine cx results and abx rec's per ID DVT Prophylaxis: HSQ Code Status: Full Hospital Classification Declaration: Based on this initial evaluation, and depending on the patient's clinical course, I anticipate that this patient will require hospitalization for 1-2 days for sepsis, UTI, cellulitis, and close respiratory/hemodynamic monitoring. Disposition: Once the patient is stable to leave the hospital, I anticipate the patient will likely be discharged to the following environment: back to SNF (pt from [facility]) I spent 43 minutes on this patient's case, and >50% was dedicated to counseling and/or care coordination. Discussed with patient/family, nursing staff, SW/CM, ID regarding clinical status, treatment course, and disposition planning. Time of note may not reflect time of encounter. Subjective Date patient seen: Dec 11, 2017 Time patient seen: 15:03 ROS Limited/Unobtainable: No HEENT: Reports: no symptoms Cardiovascular: Reports: edema Respiratory: Reports: no symptoms Gastrointestinal/Abdominal: Reports: nausea, poor appetite Genitourinary: Reports: burning, pain Neurologic/Psychiatric: Reports: no symptoms Endocrine: Reports: no symptoms Hematologic/Lymphatic: Reports: no symptoms Allergies: Coded Allergies: HALOPERIDOL (Verified Allergy, Unknown, 01/28/09) HALOPERIDOL LACTATE (Unverified Allergy, Unknown, 07/30/16) VANCOMYCIN (Unverified Adverse Reaction, Intermediate, Shortness of Breath , 06/26/13) All Systems: reviewed and negative except above Subjective No acute o/n events Pt cont to c/o nausea, poor PO intake. No emesis. Also c/o persistent dysuria and suprapubic pain, only slightly improved. Also w/ LLE swelling/redness/pain Objective Last 24 Hour Vital Signs Date Time Temp Pulse Resp B/P (MAP) Pulse Ox O2 Delivery O2 Flow Rate FiO2 12/11/17 14:20 68 153/85 12/11/17 14:14 97.5 12/11/17 13:44 97.5 12/11/17 12:25 153/85 12/11/17 12:00 97.5 68 18 153/85 (107) 90 97.5 12/11/17 10:27 98.0 12/11/17 09:00 Room Air 12/11/17 08:00 97.9 80 18 152/103 (119) 92 97.9 12/11/17 07:34 98.0 12/11/17 05:50 176/97 12/11/17 05:50 74 176/97 12/11/17 04:00 98.0 74 20 176/97 (123) 92 98.0 12/11/17 00:28 174/87 12/11/17 00:00 98.4 85 21 174/97 (122) 92 98.4 12/10/17 21:05 75 161/85 12/10/17 21:00 Room Air 12/10/17 20:00 98.0 75 19 161/85 (110) 92 98.0 12/10/17 17:25 150/124 12/10/17 16:25 97.4 12/10/17 16:00 97.4 96 23 150/124 (133) 97 97.4 Intake and Output 12/10/17 12/11/17 19:00 07:00 Intake Total 465 ml Output Total 2200 ml Balance 465 ml -2200 ml Intake Oral 240 ml IV Total 225 ml Output Urine Total 2200 ml Laboratory Tests 12/11/17 06:17: White Blood Count 4.5L, Red Blood Count 4.46, Hemoglobin 12.0, Hematocrit 37.4, Mean Corpuscular Volume 84, Mean Corpuscular Hemoglobin 26.8L, Mean Corpuscular Hemoglobin Concent 32.0, Red Cell Distribution Width 14.9H, Platelet Count 168, Mean Platelet Volume 6.4L, Neutrophils (%) (Auto) 56.6, Lymphocytes (%) (Auto) 28.7, Monocytes (%) (Auto) 12.9H, Eosinophils (%) (Auto) 1.1, Basophils (%) ( Auto) 0.7, Sodium Level 138, Potassium Level 5.0, Chloride Level 103, Carbon Dioxide Level 29, Anion Gap 6, Blood Urea Nitrogen 13, Creatinine 0.7, Estimat Glomerular Filtration Rate > 60, Glucose Level 106, Calcium Level 8.8 Height (Feet): 5 Height (Inches): 0.00 Weight (Pounds): 250 Objective General: alert, cooperative, no distress, appears stated age Head: normocephalic, without obvious abnormality, atraumatic Eyes: conjunctivae/corneas clear. PERRL, EOM's intact Throat: lips, mucosa, and tongue normal. MMM Neck: supple, symmetrical, trachea midline, and no JVD Lungs: clear to auscultation bilaterally Heart: regular rate and rhythm, S1, S2 normal, no murmur, click, rub or gallop Abdomen: soft, non-tender, non-distended, bowel sounds normal; no masses or organomegaly : +suprapubic TTP, no CVAT Extremities: extremities normal, atraumatic, no cyanosis or edema Pulses: 2+ and symmetric Skin: s+L>R LLE edema, +chronic venous stasis changes, + area of erythema on LLE Neurologic: grossly normal, no focal deficits Erickson Barker M.D. Dec 11, 2017 15:03
--- NOTE | 2017-12-11 15:18 | General Progress Note ---
Assessment/Plan Status: unchanged Assessment/Plan # Leukopenia. Wbc of 5.0 upon admission. Is likely related to HEPATITIS C --> Continue antibiotics with ID service, appreciate recs --> Monitor wbc count and administer Neupogen as needed or d/c certain med --> HIV and make sure no active infection. Pending. --> US of the abdomen. Pending. --> Current WBC at 4.5, remains low # Coagulopathy with nml PT/INR --> vit K on prn basis # Anemia, mild. Obtain w/u if Hgb drops below 10. --> Current Hgb at 12.0 # Sepsis. # Lactic Acidosis. Trend lactate. # Left Leg Cellulitis. Doxcycline added for coverage of LLE cellulitis. --> Wound care. # UTI. Empiric ceftriaxone. --> F/U urine culture. Pending. I GREATLY APPRECIATE CONSULTATION Subjective Date patient seen: Dec 11, 2017 ROS Limited/Unobtainable: Yes Hematologic/Lymphatic: Reports: anemia Allergies: Coded Allergies: HALOPERIDOL (Verified Allergy, Unknown, 01/28/09) HALOPERIDOL LACTATE (Unverified Allergy, Unknown, 07/30/16) VANCOMYCIN (Unverified Adverse Reaction, Intermediate, Shortness of Breath , 06/26/13) All Systems: reviewed and negative except above Subjective Pt awake and alert. No acute events. H/H stable. Objective Last 24 Hour Vital Signs Date Time Temp Pulse Resp B/P (MAP) Pulse Ox O2 Delivery O2 Flow Rate FiO2 12/11/17 14:20 68 153/85 12/11/17 14:14 97.5 12/11/17 13:44 97.5 12/11/17 12:25 153/85 12/11/17 12:00 97.5 68 18 153/85 (107) 90 97.5 12/11/17 10:27 98.0 12/11/17 09:00 Room Air 12/11/17 08:00 97.9 80 18 152/103 (119) 92 97.9 12/11/17 07:34 98.0 12/11/17 05:50 176/97 12/11/17 05:50 74 176/97 12/11/17 04:00 98.0 74 20 176/97 (123) 92 98.0 12/11/17 00:28 174/87 12/11/17 00:00 98.4 85 21 174/97 (122) 92 98.4 12/10/17 21:05 75 161/85 12/10/17 21:00 Room Air 12/10/17 20:00 98.0 75 19 161/85 (110) 92 98.0 12/10/17 17:25 150/124 12/10/17 16:25 97.4 12/10/17 16:00 97.4 96 23 150/124 (133) 97 97.4 Intake and Output 12/10/17 12/11/17 19:00 07:00 Intake Total 465 ml Output Total 2200 ml Balance 465 ml -2200 ml Intake Oral 240 ml IV Total 225 ml Output Urine Total 2200 ml Laboratory Tests 12/11/17 06:17: White Blood Count 4.5L, Red Blood Count 4.46, Hemoglobin 12.0, Hematocrit 37.4, Mean Corpuscular Volume 84, Mean Corpuscular Hemoglobin 26.8L, Mean Corpuscular Hemoglobin Concent 32.0, Red Cell Distribution Width 14.9H, Platelet Count 168, Mean Platelet Volume 6.4L, Neutrophils (%) (Auto) 56.6, Lymphocytes (%) (Auto) 28.7, Monocytes (%) (Auto) 12.9H, Eosinophils (%) (Auto) 1.1, Basophils (%) ( Auto) 0.7, Sodium Level 138, Potassium Level 5.0, Chloride Level 103, Carbon Dioxide Level 29, Anion Gap 6, Blood Urea Nitrogen 13, Creatinine 0.7, Estimat Glomerular Filtration Rate > 60, Glucose Level 106, Calcium Level 8.8 Height (Feet): 5 Height (Inches): 0.00 Weight (Pounds): 250 General Appearance: no apparent distress EENT: PERRL/EOMI Neck: normal alignment Cardiovascular: irregularly irregular Respiratory/Chest: no respiratory distress Abdomen: soft Yao Aden MD Dec 11, 2017 15:18
--- NOTE | 2017-12-11 15:58 | Infectious Diseases Prog Note ---
Assessment/Plan Assessment/Plan Full consult to follow: uti leg cellulitis allergies - vancomycin pmh noted mrsa colonization abx - rocephin plus doxycycline check urine culture monitor labs and cellulitis po abx soon d/w Dr. Almendarez Subjective Constitutional: Reports: fatigue; Denies: fever Respiratory: Denies: shortness of breath Cardiovascular: Denies: chest pain Gastrointestinal/Abdominal: Denies: nausea Allergies: Coded Allergies: HALOPERIDOL (Verified Allergy, Unknown, 01/28/09) HALOPERIDOL LACTATE (Unverified Allergy, Unknown, 07/30/16) VANCOMYCIN (Unverified Adverse Reaction, Intermediate, Shortness of Breath , 06/26/13) Objective Vital Signs Last 24 Hour Vital Signs Date Time Temp Pulse Resp B/P (MAP) Pulse Ox O2 Delivery O2 Flow Rate FiO2 12/11/17 14:20 68 153/85 12/11/17 14:14 97.5 12/11/17 13:44 97.5 12/11/17 12:25 153/85 12/11/17 12:00 97.5 68 18 153/85 (107) 90 97.5 12/11/17 10:27 98.0 12/11/17 09:00 Room Air 12/11/17 08:00 97.9 80 18 152/103 (119) 92 97.9 12/11/17 07:34 98.0 12/11/17 05:50 176/97 12/11/17 05:50 74 176/97 12/11/17 04:00 98.0 74 20 176/97 (123) 92 98.0 12/11/17 00:28 174/87 12/11/17 00:00 98.4 85 21 174/97 (122) 92 98.4 12/10/17 21:05 75 161/85 12/10/17 21:00 Room Air 12/10/17 20:00 98.0 75 19 161/85 (110) 92 98.0 12/10/17 17:25 150/124 12/10/17 16:25 97.4 12/10/17 16:00 97.4 96 23 150/124 (133) 97 97.4 Height (Feet): 5 Height (Inches): 0.00 Weight (Pounds): 250 General Appearance: no acute distress HEENT: normocephalic Respiratory/Chest: lungs clear Cardiovascular: normal rate Abdomen: normal bowel sounds, soft, non tender, no organomegaly Extremities: other - leg cellulitis Microbiology Date/Time Source Procedure Growth Status 12/09/17 17:50 Blood Blood Culture - Preliminary NO GROWTH AFTER 24 HOURS Resulted 12/09/17 17:40 Blood Blood Culture - Preliminary NO GROWTH AFTER 24 HOURS Resulted 12/09/17 19:20 Nasal Nares Left MRSA Culture - Final Staphylococcus Aureus - Mrsa Complete Laboratory Tests Test 12/11/17 06:17 White Blood Count 4.5 K/UL (4.8-10.8) L Red Blood Count 4.46 M/UL (4.20-5.40) Hemoglobin 12.0 G/DL (12.0-16.0) Hematocrit 37.4 % (37.0-47.0) Mean Corpuscular Volume 84 FL (80-99) Mean Corpuscular Hemoglobin 26.8 PG (27.0-31.0) L Mean Corpuscular Hemoglobin Concent 32.0 G/DL (32.0-36.0) Red Cell Distribution Width 14.9 % (11.6-14.8) H Platelet Count 168 K/UL (150-450) Mean Platelet Volume 6.4 FL (6.5-10.1) L Neutrophils (%) (Auto) 56.6 % (45.0-75.0) Lymphocytes (%) (Auto) 28.7 % (20.0-45.0) Monocytes (%) (Auto) 12.9 % (1.0-10.0) H Eosinophils (%) (Auto) 1.1 % (0.0-3.0) Basophils (%) (Auto) 0.7 % (0.0-2.0) Sodium Level 138 MMOL/L (136-145) Potassium Level 5.0 MMOL/L (3.5-5.1) Chloride Level 103 MMOL/L (98-107) Carbon Dioxide Level 29 MMOL/L (21-32) Anion Gap 6 mmol/L (5-15) Blood Urea Nitrogen 13 mg/dL (7-18) Creatinine 0.7 MG/DL (0.55-1.30) Estimat Glomerular Filtration Rate > 60 mL/min (>60) Glucose Level 106 MG/DL (74-106) Calcium Level 8.8 MG/DL (8.5-10.1) Current Medications Medications (Trade) Dose Ordered Sig/Shiraz Route PRN Reason Start Time Stop Time Status Last Admin Dose Admin Acetaminophen (Tylenol) 650 mg Q6H PRN ORAL Mild Pain/Temp > 100.5 12/09/17 21:00 01/08/18 20:59 12/11/17 05:52 Aspirin (Ecotrin) 81 mg DAILY ORAL 12/10/17 09:00 01/09/18 08:59 12/11/17 08:50 Ceftriaxone Sodium 1 gm/ Dextrose 55 ml @ 110 mls/hr Q24H IVPB 12/09/17 22:00 12/16/17 21:59 12/10/17 22:13 Diltiazem HCl (Cardizem) 60 mg EVERY 8 HOURS ORAL 12/10/17 06:00 01/09/18 05:59 12/11/17 14:20 Divalproex Sodium (Depakote) 250 mg EVERY 12 HOURS ORAL 12/10/17 09:00 01/09/18 08:59 12/11/17 08:51 Docusate Sodium (Colace) 100 mg DAILY ORAL 12/10/17 09:00 01/09/18 08:59 12/11/17 08:50 Doxycycline Hyclate 100 mg/ Dextrose 100 ml @ 100 mls/hr Q12HR IV 12/10/17 21:00 12/17/17 20:59 12/11/17 08:51 Escitalopram Oxalate (Lexapro) 5 mg DAILY ORAL 12/10/17 09:00 01/09/18 08:59 12/11/17 08:51 Heparin Sodium (Porcine) (Heparin 5000 units/ml) 5,000 units EVERY 12 HOURS SUBQ 12/10/17 21:00 01/09/18 20:59 12/11/17 08:56 Hydralazine HCl (Apresoline) 10 mg EVERY 6 HOURS ORAL 12/10/17 00:00 01/09/18 00:00 12/11/17 12:25 Hydralazine HCl (Apresoline) 10 mg Q6H PRN ORAL SBP > 160mmHg 12/10/17 10:15 01/09/18 10:14 12/10/17 10:31 Lorazepam (Ativan 2mg/ml 1ml) 0.5 mg EVERY 12 HOURS PRN IM For Anxiety 12/09/17 23:15 12/16/17 23:14 Magnesium Hydroxide (Mom) 30 ml DAILY ORAL 12/10/17 09:00 01/09/18 08:59 Morphine Sulfate (Morphine Sulfate) 4 mg Q3H PRN IVP For Pain 12/09/17 21:00 12/16/17 20:59 12/11/17 13:44 Multivitamins Therapeutic (Therapeutic Multivitamin) 1 ea DAILY ORAL 12/10/17 09:00 01/09/18 08:59 12/11/17 08:50 Ondansetron HCl (Zofran) 4 mg Q4H PRN IVP Nausea & Vomiting 12/09/17 21:00 01/08/18 20:59 12/11/17 07:35 Phenazopyridine HCl (Pyridium) 200 mg THREE TIMES A DAY ORAL 12/10/17 09:00 01/09/18 08:59 12/11/17 12:25 Polyethylene Glycol (Miralax) 17 gm BEDTIME ORAL 12/10/17 21:00 01/09/18 20:59 Aleisha Coronel MD Dec 11, 2017 15:58
[2017-12-11 16:00] VITALS: BP 146/71
[2017-12-11 20:00] VITALS: BP 178/88
--- NOTE | 2017-12-11 20:00 | Consultation ---
DATE OF CONSULTATION: 12/11/2017 INFECTIOUS DISEASE CONSULTATION CONSULTING PHYSICIAN: Aleisha Coronel M.D. ATTENDING PHYSICIAN: Ignacia Blackwood M.D. REFERRING PHYSICIAN: Dr. Almendarez. REASON FOR CONSULTATION: UTI and bilateral leg cellulitis. CHIEF COMPLAINT: The patient's chief complaint coming into the hospital was nausea, vomiting, UTI. HISTORY OF PRESENT ILLNESS: This is a 67-year-old female, who comes in to the [facility] with bilateral leg cellulitis and also urinary tract infection. She is colonized with MRSA. Infectious Disease consultation was requested for antibiotic management. She is allergic to vancomycin. The patient was placed on doxycycline and Rocephin for bilateral leg cellulitis and UTI. The patient likely has complicated UTI with nausea and vomiting. Case was discussed with Dr. Almendarez. The patient will be continued on Rocephin and doxycycline, which I started yesterday when I saw the patient. REVIEW OF SYSTEMS: CONSTITUTIONAL: She has had generalized weakness. No fevers. GENITOURINARY: She has dysuria and frequency. GASTROINTESTINAL: No nausea or vomiting. She did come in with abdominal pain, nausea, and vomiting initially, but currently no nausea or vomiting. HEAD AND NECK: No head pain or neck pain. CARDIAC: No chest pain. PULMONARY: No congestion or shortness of breath. SKIN: No rash or itching. EXTREMITIES: She has leg pain and swelling. NEUROLOGIC: No seizures. PAST MEDICAL HISTORY: Includes history of the following. She has history of hypertension, lymphedema, history of psychiatric disease, history of cardiac disease, history of what looks like also COPD, history of weakness, fatigue, neurological disease. No history of diabetes. History of venous stasis. She has history of depression, schizophrenia, obesity. ALLERGIES: Include haloperidol, lactate, and vancomycin. FAMILY HISTORY: Noncontributory. SOCIAL HISTORY: Positive for smoking. No alcohol or drug abuse. MEDICATIONS: Upon reviewing the MAR, she is on the following medications. She is on polyethylene, heparin, hydralazine, aspirin, Lexapro. She is on magnesium hydroxide, multivitamin, divalproex, docusate, phenazopyridine, diltiazem, hydralazine, lorazepam, Rocephin, doxycycline, Zofran, morphine, acetaminophen. Outside medications noted and reconciliated. PHYSICAL EXAMINATION: VITAL SIGNS: Blood pressure 153/85, pulse rate 68, respiratory rate 18, saturation 98%, and temperature 97.5. GENERAL: Alert, responsive, in no acute distress. No shortness of breath noted. HEAD AND NECK: Oral exam, no thrush. Eye exam, no icterus. Normocephalic. NECK: Supple. No JVD. HEART: Regular. No obvious gallop or murmur. ABDOMEN: Soft. Positive bowel sounds. Nontender. LUNGS: Clear bilaterally. No rhonchi or rales. SKIN: No rash. MUSCULOSKELETAL: No effusion in the legs. She has bilateral leg cellulitis, warmth, and redness. PERIPHERAL VASCULAR: No gangrene. GENITOURINARY: She does have a [place]. Urine looks cloudy. LINE SITES: Without phlebitis. NEUROLOGIC: Intact. Nonfocal. LABORATORY AND DIAGNOSTIC DATA: Laboratory data as follows. UA had 3+ leukocyte esterase, too many to count white blood cells. Urine culture is pending. Creatinine 0.7. White count 4.5 from 12.0. Urine culture is pending. MRSA screen is positive. Blood cultures are negative. Imaging studies, chest x-ray shows no acute disease. ASSESSMENT AND PLAN: 1. The patient has complicated UTI with weakness, significantly positive urinalysis. She also has bilateral leg cellulitis with warmth and redness. Continue doxycycline and Rocephin for MRSA and gram-negative coverage and Streptococcus pyogenes coverage. She is allergic to vancomycin. We cannot give her Zyvox because she is on antidepressants. Continue doxycycline and Rocephin. Recheck UA and C and S. Await urine culture. If urinalysis is improving and we know the urine culture results, consider switching to oral antibiotics. Continue doxycycline and Rocephin for leg cellulitis and for UTI for now. Case was discussed with Dr. Almendarez. 2. MRSA colonization, isolation. 3. Hypertension. 4. Depression. 5. Schizophrenia. 6. Obesity. 7. Venous stasis. 8. Lymphedema. 9. Possible COPD. 10. Past medical history noted. 11. Social history positive for smoking. 12. Family history noncontributory. 13. MAR was noted. 14. Case discussed with RN. 15. Allergies include vancomycin and haloperidol. Aleisha Coronel M.D. DR: Jazmin JOB#: [id number] CC:
[2017-12-11] MEDS: Miralax 17gm pkt ORAL SCH (21:00)
[2017-12-11] MEDS: cefTRIAXone 1 GM in D5W 55 ML IVPB SCH (21:56)
[2017-12-12] VITALS (7 sets, daily range): BP systolic 122–185; BP diastolic 85–98
[2017-12-12] MEDS: Morphine Sulfate 4mg/ml Inj (IV USE ONLY) IVP PRN ×6 (02:43→21:18)
[2017-12-12] MEDS ORDERED: Norco 5mg/325mg tab ORAL PRN (05:15)
[2017-12-12] MEDS: dilTIAZem HCl 60mg tab ORAL SCH ×3 (06:13→21:22)
[2017-12-12] MEDS: HydrALAZINE 10mg Tab ORAL SCH ×3 (06:13→18:13)
[2017-12-12] MEDS: Docusate 100mg cap ORAL SCH (08:31)
[2017-12-12] MEDS: Aspirin EC 81mg tab ORAL SCH (08:31)
[2017-12-12] MEDS: Multivitamin w/Minerals tab ORAL SCH (08:31)
[2017-12-12] MEDS: Phenazopyridine 200mg tab ORAL SCH ×3 (08:31→18:10)
[2017-12-12] MEDS: HydrALAZINE 10mg Tab ORAL PRN (08:32)
[2017-12-12] MEDS: Heparin 5000 units/ml inj SUBQ SCH ×2 (08:36→21:25)
--- NOTE | 2017-12-12 10:35 | General Progress Note ---
Assessment/Plan Assessment/Plan # Leukopenia. Wbc of 5.0 upon admission. Is likely related to HEPATITIS C, also likely related to uti/lower ext cellulitis --> Continue antibiotics with ID service, appreciate recs --> Monitor wbc count and administer Neupogen as needed or d/c certain med --> HIV is negative for ifnection --> US of the abdomen. Pending. --> Current WBC at 4.5, remains low # Coagulopathy with nml PT/INR --> vit K on prn basis --> ffp iof gets any worse # Anemia, mild. Obtain w/u if Hgb drops below 10. --> Current Hgb at 12.0 # Sepsis. # Lactic Acidosis. Trend lactate. # Left Leg Cellulitis. Doxcycline added for coverage of LLE cellulitis. --> Wound care. # UTI. Empiric ceftriaxone. --> F/U urine culture. Pending. I GREATLY APPRECIATE CONSULTATION. Subjective Constitutional: Denies: no symptoms, chills, diaphoresis, fever, malaise, weakness, other HEENT: Denies: no symptoms, eye pain, blurred vision, tearing, double vision, ear pain, ear discharge, nose pain, nose congestion, throat pain, throat swelling, mouth pain, mouth swelling, other Cardiovascular: Denies: no symptoms, chest pain, edema, irregular heart rate, lightheadedness, palpitations, syncope, other Respiratory: Denies: no symptoms, cough, orthopnea, shortness of breath, SOB with excertion, SOB at rest, sputum, stridor, wheezing, other Gastrointestinal/Abdominal: Denies: no symptoms, abdomen distended, abdominal pain, black stools, tarry stools, blood in stool, constipated, diarrhea, difficulty swallowing, nausea, poor appetite, poor fluid intake, rectal bleeding , vomiting, other Genitourinary: Denies: no symptoms, burning, discharge, frequency, flank pain, hematuria, incontinence, pain, urgency, other Neurologic/Psychiatric: Denies: no symptoms, anxiety, depressed, emotional problems, headache, numbness, paresthesia, pre-existing deficit, seizure, tingling, tremors, weakness, other Endocrine: Denies: no symptoms, excessive sweating, flushing, intolerance to cold, intolerance to heat, increased hunger, increased thirst, increased urine, unexplained weight gain, unexplained weight loss, other Hematologic/Lymphatic: Denies: no symptoms, anemia, easy bleeding, easy bruising, other Allergies: Coded Allergies: HALOPERIDOL (Verified Allergy, Unknown, 01/28/09) HALOPERIDOL LACTATE (Unverified Allergy, Unknown, 07/30/16) VANCOMYCIN (Unverified Adverse Reaction, Intermediate, Shortness of Breath , 06/26/13) Subjective Pt awake and alert. No acute events. H/H stable at this time. Objective Last 24 Hour Vital Signs Date Time Temp Pulse Resp B/P (MAP) Pulse Ox O2 Delivery O2 Flow Rate FiO2 12/12/17 09:00 Room Air 12/12/17 08:32 160/85 12/12/17 08:00 96.1 76 20 160/85 (110) 90 96.1 12/12/17 06:19 168/96 (120) 12/12/17 06:13 168/96 12/12/17 06:13 68 168/96 12/12/17 04:00 97.6 78 20 173/98 (123) 92 97.6 12/12/17 00:00 97.6 75 20 122/89 (100) 92 97.6 12/11/17 23:34 122/89 12/11/17 21:25 69 178/88 12/11/17 21:00 Room Air 12/11/17 20:00 97.6 69 22 178/88 (118) 92 97.6 12/11/17 17:35 146/71 12/11/17 17:13 98.7 12/11/17 16:43 98.7 12/11/17 16:00 98.7 68 18 146/71 (96) 99 98.7 12/11/17 14:20 68 153/85 12/11/17 13:44 97.5 12/11/17 12:25 153/85 12/11/17 12:00 97.5 68 18 153/85 (107) 90 97.5 Intake and Output 12/11/17 12/12/17 19:00 07:00 Intake Total 620 ml 600 ml Output Total 2025 ml Balance 620 ml -1425 ml Intake Oral 620 ml 600 ml Output Urine Total 2025 ml Height (Feet): 5 Height (Inches): 0.00 Weight (Pounds): 250 General Appearance: alert EENT: TMs normal Neck: supple Cardiovascular: regular rhythm Respiratory/Chest: no respiratory distress Abdomen: non tender Extremities: non-tender Edema: mild edema Neurologic: alert Skin: warm/dry Yao Aden MD Dec 12, 2017 10:35
--- NOTE | 2017-12-12 11:42 | General Progress Note ---
Assessment/Plan Status: progressing Status Narrative (1) Sepsis ICD Codes: A41.9 - Sepsis, unspecified organism SNOMED: 65930877 Qualifiers: Qualified Codes: A41.9 - Sepsis, unspecified organism (2) Lactic acidosis ICD Codes: E87.2 - Acidosis SNOMED: 93735641 (3) UTI (urinary tract infection) ICD Codes: N39.0 - Urinary tract infection, site not specified SNOMED: 84227995 (4) Left leg cellulitis ICD Codes: L03.116 - Cellulitis of left lower limb SNOMED: 475239624 (5) Chronic venous stasis ICD Codes: I87.8 - Other specified disorders of veins SNOMED: 28389986 (6) Lymphadema (7) Nausea and vomiting ICD Codes: R11.2 - Nausea with vomiting, unspecified SNOMED: 83603608 Assessment/Plan Pt with sepsis 2/2 acute UTI, likely cystitis. Also w/ area of cellulitis on LLE. - ID consulted- recs appreciated - Empiric ceftriaxone for UTI (12/09-) - Doxycycline added for coverage of LLE cellulitis (12/10-)- - Check venous duplex BLE- pending - F/u urine cx--pending- preliminary gram negative rods - F/u blood cx--ngtd - Trend lactate--normalized - s/p IVFs - Wound care - Pain control, bowel regimen - Nausea control - Supportive care - Likely d/c tomorrow pending urine cx results and abx rec's per ID DVT Prophylaxis: HSQ Code Status: Full Hospital Classification Declaration: Based on this initial evaluation, and depending on the patient's clinical course, I anticipate that this patient will require hospitalization for 1-2 days for sepsis, UTI, cellulitis, and close respiratory/hemodynamic monitoring. Disposition: Once the patient is stable to leave the hospital, I anticipate the patient will likely be discharged to the following environment: back to SNF (pt from [facility]) I spent 43 minutes on this patient's case, and >50% was dedicated to counseling and/or care coordination. Discussed with patient/family, nursing staff, SW/CM, ID regarding clinical status, treatment course, and disposition planning. Time of note may not reflect time of encounter. Subjective Date patient seen: Dec 12, 2017 Time patient seen: 11:22 ROS Limited/Unobtainable: No Constitutional: Reports: malaise HEENT: Reports: no symptoms Cardiovascular: Reports: no symptoms Respiratory: Reports: no symptoms Gastrointestinal/Abdominal: Reports: no symptoms Genitourinary: Reports: burning Neurologic/Psychiatric: Reports: no symptoms, pre-existing deficit Endocrine: Reports: no symptoms Hematologic/Lymphatic: Reports: no symptoms, anemia Allergies: Coded Allergies: HALOPERIDOL (Verified Allergy, Unknown, 01/28/09) HALOPERIDOL LACTATE (Unverified Allergy, Unknown, 07/30/16) VANCOMYCIN (Unverified Adverse Reaction, Intermediate, Shortness of Breath , 06/26/13) All Systems: reviewed and negative except above Subjective Events of overnight and the weekend noted Chart reviewed by me Patient intially refused exam and interview but relented Notes persistent burning with urination Feels leg is better No chest pain or dyspnea Objective Last 24 Hour Vital Signs Date Time Temp Pulse Resp B/P (MAP) Pulse Ox O2 Delivery O2 Flow Rate FiO2 12/12/17 09:00 Room Air 12/12/17 08:32 160/85 12/12/17 08:00 96.1 76 20 160/85 (110) 90 96.1 12/12/17 06:19 168/96 (120) 12/12/17 06:13 168/96 12/12/17 06:13 68 168/96 12/12/17 04:00 97.6 78 20 173/98 (123) 92 97.6 12/12/17 00:00 97.6 75 20 122/89 (100) 92 97.6 12/11/17 23:34 122/89 12/11/17 21:25 69 178/88 12/11/17 21:00 Room Air 12/11/17 20:00 97.6 69 22 178/88 (118) 92 97.6 12/11/17 17:35 146/71 12/11/17 17:13 98.7 12/11/17 16:43 98.7 12/11/17 16:00 98.7 68 18 146/71 (96) 99 98.7 12/11/17 14:20 68 153/85 12/11/17 13:44 97.5 12/11/17 12:25 153/85 12/11/17 12:00 97.5 68 18 153/85 (107) 90 97.5 Intake and Output 12/11/17 12/12/17 19:00 07:00 Intake Total 620 ml 600 ml Output Total 2025 ml Balance 620 ml -1425 ml Intake Oral 620 ml 600 ml Output Urine Total 2025 ml Height (Feet): 5 Height (Inches): 0.00 Weight (Pounds): 250 General Appearance: WD/WN, no apparent distress, morbidly obese EENT: PERRL/EOMI, TMs normal, pharynx normal Neck: non-tender, supple Cardiovascular: normal peripheral pulses, normal rate, regular rhythm Respiratory/Chest: chest wall non-tender, lungs clear Abdomen: normal bowel sounds, soft Pelvis: normal external exam Extremities: normal range of motion Edema: moderate edema Neurologic: alert Skin: rash Lymphatic: normal anterior cervical (L), normal anterior cervical (R) Everardo Azevedo MD Dec 12, 2017 11:42
[2017-12-12] MEDS: HYDROcodone/Acetamin 10/325 tab ORAL PRN (12:43)
[2017-12-12] MEDS: Miralax 17gm pkt ORAL SCH ×2 (21:00→21:22)
[2017-12-12] MEDS: cefTRIAXone 1 GM in D5W 55 ML IVPB SCH (22:46)
[2017-12-13] VITALS (7 sets, daily range): BP systolic 118–174; BP diastolic 66–94
[2017-12-13] MEDS: HydrALAZINE 10mg Tab ORAL SCH ×4 (00:28→17:29)
[2017-12-13] MEDS: Morphine Sulfate 4mg/ml Inj (IV USE ONLY) IVP PRN ×7 (00:29→22:51)
[2017-12-13] MEDS: HYDROcodone/Acetamin 10/325 tab ORAL PRN ×2 (02:49→17:29)
[2017-12-13] MEDS: dilTIAZem HCl 60mg tab ORAL SCH ×3 (06:03→21:29)
--- NOTE | 2017-12-13 06:45 | General Progress Note ---
Assessment/Plan Assessment/Plan # Leukopenia. Wbc of 5.0 upon admission. Is likely related to HEPATITIS C, also likely related to uti/lower ext cellulitis, currently in the 4-6k range --> Continue antibiotics with ID service, appreciate recs --> Monitor wbc count and administer Neupogen as needed or d/c certain med --> HIV is negative for ifnection --> US of the abdomen. Pending. --> Current WBC at 4.5, remains low # Coagulopathy with nml PT/INR --> vit K on prn basis --> ffp iof gets any worse # Anemia, mild. Obtain w/u if Hgb drops below 10. --> Current Hgb at 12.0 # Sepsis. --> on abx as per ID service # Lactic Acidosis. Trend lactate. as per primary # Left Leg Cellulitis. Doxcycline added for coverage of LLE cellulitis. --> Wound care. # UTI. Empiric ceftriaxone. --> F/U urine culture. Pending. I GREATLY APPRECIATE CONSULTATION. Subjective Constitutional: Denies: no symptoms, chills, diaphoresis, fever, malaise, weakness, other HEENT: Denies: no symptoms, eye pain, blurred vision, tearing, double vision, ear pain, ear discharge, nose pain, nose congestion, throat pain, throat swelling, mouth pain, mouth swelling, other Cardiovascular: Denies: no symptoms, chest pain, edema, irregular heart rate, lightheadedness, palpitations, syncope, other Respiratory: Denies: no symptoms, cough, orthopnea, shortness of breath, SOB with excertion, SOB at rest, sputum, stridor, wheezing, other Gastrointestinal/Abdominal: Denies: no symptoms, abdomen distended, abdominal pain, black stools, tarry stools, blood in stool, constipated, diarrhea, difficulty swallowing, nausea, poor appetite, poor fluid intake, rectal bleeding , vomiting, other Genitourinary: Denies: no symptoms, burning, discharge, frequency, flank pain, hematuria, incontinence, pain, urgency, other Neurologic/Psychiatric: Denies: no symptoms, anxiety, depressed, emotional problems, headache, numbness, paresthesia, pre-existing deficit, seizure, tingling, tremors, weakness, other Endocrine: Denies: no symptoms, excessive sweating, flushing, intolerance to cold, intolerance to heat, increased hunger, increased thirst, increased urine, unexplained weight gain, unexplained weight loss, other Hematologic/Lymphatic: Denies: no symptoms, anemia, easy bleeding, easy bruising, other Allergies: Coded Allergies: HALOPERIDOL (Verified Allergy, Unknown, 01/28/09) HALOPERIDOL LACTATE (Unverified Allergy, Unknown, 07/30/16) VANCOMYCIN (Unverified Adverse Reaction, Intermediate, Shortness of Breath , 06/26/13) Subjective Pt awake and alert. No acute events. H/H stable at this time. Refused miralaz overnight Objective Last 24 Hour Vital Signs Date Time Temp Pulse Resp B/P (MAP) Pulse Ox O2 Delivery O2 Flow Rate FiO2 12/13/17 06:03 122/89 12/13/17 06:03 85 122/89 12/13/17 04:00 97.8 85 20 122/89 (100) 93 97.8 12/13/17 00:28 174/94 12/13/17 00:00 97.6 79 20 174/94 (120) 92 97.6 12/12/17 21:22 66 164/87 12/12/17 21:00 Room Air 12/12/17 20:00 97.0 66 20 164/87 (112) 92 97.0 12/12/17 18:13 148/73 12/12/17 14:03 72 185/94 12/12/17 13:57 185/94 (124) 69 12/12/17 12:43 183/96 12/12/17 12:00 97.3 72 18 183/96 (125) 90 97.3 12/12/17 09:31 96.1 12/12/17 09:00 Room Air 12/12/17 08:32 160/85 12/12/17 08:00 96.1 76 20 160/85 (110) 90 96.1 Intake and Output 12/12/17 12/13/17 19:00 07:00 Intake Total 1100 ml 155 ml Output Total 1200 ml 2000 ml Balance -100 ml -1845 ml Intake Oral 1000 ml IV Total 100 ml 155 ml Output Urine Total 1200 ml 2000 ml Height (Feet): 5 Height (Inches): 0.00 Weight (Pounds): 250 General Appearance: alert EENT: TMs normal Neck: normal alignment Cardiovascular: regular rhythm Respiratory/Chest: lungs clear Abdomen: soft Extremities: non-tender Edema: 1+ Leg (L), 1+ Leg (R) Edema: mild edema Neurologic: alert Skin: warm/dry Yao Aden MD Dec 13, 2017 06:45
[2017-12-13] MEDS: Milk of Magnesia 30ml Ud ORAL SCH (09:00)
[2017-12-13] MEDS: Aspirin EC 81mg tab ORAL SCH (09:51)
[2017-12-13] MEDS: Docusate 100mg cap ORAL SCH (09:51)
[2017-12-13] MEDS: Phenazopyridine 200mg tab ORAL SCH ×3 (09:51→17:28)
[2017-12-13] MEDS: Multivitamin w/Minerals tab ORAL SCH (09:51)
[2017-12-13] MEDS: Heparin 5000 units/ml inj SUBQ SCH ×2 (10:03→21:39)
--- NOTE | 2017-12-13 12:20 | General Progress Note ---
Assessment/Plan Status: stable Assessment/Plan Schizophrenia MDD the pt is not a dts/dto -cont depakote -increase lexapro 10mg qam Subjective Date patient seen: Dec 13, 2017 Neurologic/Psychiatric: Reports: anxiety Allergies: Coded Allergies: HALOPERIDOL (Verified Allergy, Unknown, 01/28/09) HALOPERIDOL LACTATE (Unverified Allergy, Unknown, 07/30/16) VANCOMYCIN (Unverified Adverse Reaction, Intermediate, Shortness of Breath , 06/26/13) Objective Last 24 Hour Vital Signs Date Time Temp Pulse Resp B/P (MAP) Pulse Ox O2 Delivery O2 Flow Rate FiO2 12/13/17 09:00 Room Air 12/13/17 08:00 98.8 69 18 118/66 (83) 97 98.8 12/13/17 06:03 122/89 12/13/17 06:03 85 122/89 12/13/17 04:00 97.8 85 20 122/89 (100) 93 97.8 12/13/17 00:28 174/94 12/13/17 00:00 97.6 79 20 174/94 (120) 92 97.6 12/12/17 21:22 66 164/87 12/12/17 21:00 Room Air 12/12/17 20:00 97.0 66 20 164/87 (112) 92 97.0 12/12/17 18:13 148/73 12/12/17 14:03 72 185/94 12/12/17 13:57 185/94 (124) 69 12/12/17 12:43 183/96 Intake and Output 12/12/17 12/13/17 19:00 07:00 Intake Total 1100 ml 155 ml Output Total 1200 ml 2000 ml Balance -100 ml -1845 ml Intake Oral 1000 ml IV Total 100 ml 155 ml Output Urine Total 1200 ml 2000 ml Height (Feet): 5 Height (Inches): 0.00 Weight (Pounds): 250 General Appearance: alert, morbidly obese Neurologic: alert, oriented x 3, responsive, depressed affect Harris Ballesteros MD Dec 13, 2017 12:20
--- NOTE | 2017-12-13 14:31 | General Progress Note ---
Assessment/Plan Assessment/Plan Pt with sepsis 2/2 acute UTI, likely cystitis. Also w/ area of cellulitis on LLE. - ID consulted- recs appreciated - Empiric ceftriaxone for UTI (12/09-) - Doxycycline added for coverage of LLE cellulitis (12/10-)- - Check venous duplex BLE- pending - F/u urine cx--pending- preliminary gram negative rods - F/u blood cx--ngtd - Trend lactate--normalized - s/p IVFs - Wound care - Pain control, bowel regimen - Nausea control - Supportive care - Likely d/c tomorrow pending urine cx results and abx rec's per ID DVT Prophylaxis: HSQ Code Status: Full Hospital Classification Declaration: Based on this initial evaluation, and depending on the patient's clinical course, I anticipate that this patient will require hospitalization for 1-2 days for sepsis, UTI, cellulitis, and close respiratory/hemodynamic monitoring. Disposition: Once the patient is stable to leave the hospital, I anticipate the patient will likely be discharged to the following environment: back to SNF (pt from [facility]) I spent 43 minutes on this patient's case, and >50% was dedicated to counseling and/or care coordination. Discussed with patient/family, nursing staff, SW/CM, ID regarding clinical status, treatment course, and disposition planning. Time of note may not reflect time of encounter. Subjective Allergies: Coded Allergies: HALOPERIDOL (Verified Allergy, Unknown, 01/28/09) HALOPERIDOL LACTATE (Unverified Allergy, Unknown, 07/30/16) VANCOMYCIN (Unverified Adverse Reaction, Intermediate, Shortness of Breath , 06/26/13) Subjective Events of overnight and the weekend noted Chart reviewed by me Patient intially refused exam and interview but relented Notes persistent burning with urination Feels leg is better No chest pain or dyspnea Objective Last 24 Hour Vital Signs Date Time Temp Pulse Resp B/P (MAP) Pulse Ox O2 Delivery O2 Flow Rate FiO2 12/13/17 13:04 92 163/82 12/13/17 12:16 171/79 12/13/17 12:15 163/82 (109) 92 12/13/17 12:00 97.5 81 20 171/79 (109) 95 97.5 12/13/17 09:00 Room Air 12/13/17 08:00 98.8 69 18 118/66 (83) 97 98.8 12/13/17 06:03 122/89 12/13/17 06:03 85 122/89 12/13/17 04:00 97.8 85 20 122/89 (100) 93 97.8 12/13/17 00:28 174/94 12/13/17 00:00 97.6 79 20 174/94 (120) 92 97.6 12/12/17 21:22 66 164/87 12/12/17 21:00 Room Air 12/12/17 20:00 97.0 66 20 164/87 (112) 92 97.0 12/12/17 18:13 148/73 Intake and Output 12/12/17 12/13/17 19:00 07:00 Intake Total 1100 ml 155 ml Output Total 1200 ml 2000 ml Balance -100 ml -1845 ml Intake Oral 1000 ml IV Total 100 ml 155 ml Output Urine Total 1200 ml 2000 ml Height (Feet): 5 Height (Inches): 0.00 Weight (Pounds): 250 Everardo Azevedo MD Dec 13, 2017 14:31
[2017-12-13] MEDS: HydrALAZINE 10mg Tab ORAL PRN (15:47)
--- NOTE | 2017-12-13 16:59 | Infectious Diseases Prog Note ---
Assessment/Plan Assessment/Plan ASSESSMENT AND PLAN: 1. esbl e.coli uti, bilateral leg cellulitis, complicated uti - meropenem and bactrim - watch cellulitis clinically - monitor labs 2. MRSA colonization, vre colonization, isolation 3. Hypertension. 4. Depression. 5. Schizophrenia. 6. Obesity. 7. Venous stasis. 8. Lymphedema. 9. Possible COPD. 10. Past medical history noted. 11. Social history positive for smoking. 12. Family history noncontributory. 13. MAR was noted. 14. Case discussed with RN. 15. Allergies include vancomycin and haloperidol. Subjective Constitutional: Denies: fever HEENT: Denies: congestion Respiratory: Denies: shortness of breath Cardiovascular: Denies: chest pain Gastrointestinal/Abdominal: Denies: nausea, vomiting, diarrhea Genitourinary: Reports: dysuria, frequency Neurologic: Denies: headache Psychiatric: Denies: depression Skin: Denies: rash Hematologic: Denies: bleeding Musculoskeletal: Denies: pain Allergies: Coded Allergies: HALOPERIDOL (Verified Allergy, Unknown, 01/28/09) HALOPERIDOL LACTATE (Unverified Allergy, Unknown, 07/30/16) VANCOMYCIN (Unverified Adverse Reaction, Intermediate, Shortness of Breath , 06/26/13) Objective Vital Signs Last 24 Hour Vital Signs Date Time Temp Pulse Resp B/P (MAP) Pulse Ox O2 Delivery O2 Flow Rate FiO2 12/13/17 15:47 164/92 12/13/17 13:04 92 163/82 12/13/17 12:16 171/79 12/13/17 12:15 163/82 (109) 92 12/13/17 12:00 97.5 81 20 171/79 (109) 95 97.5 12/13/17 09:00 Room Air 12/13/17 08:00 98.8 69 18 118/66 (83) 97 98.8 12/13/17 06:03 122/89 12/13/17 06:03 85 122/89 12/13/17 04:00 97.8 85 20 122/89 (100) 93 97.8 12/13/17 00:28 174/94 12/13/17 00:00 97.6 79 20 174/94 (120) 92 97.6 12/12/17 21:22 66 164/87 12/12/17 21:00 Room Air 12/12/17 20:00 97.0 66 20 164/87 (112) 92 97.0 12/12/17 18:13 148/73 Height (Feet): 5 Height (Inches): 0.00 Weight (Pounds): 250 General Appearance: no acute distress HEENT: normocephalic, atraumatic, anicteric, mucous membranes moist Respiratory/Chest: lungs clear, normal breath sounds, no respiratory distress, no accessory muscle use Cardiovascular: normal rate, regular rhythm Abdomen: soft, non tender, no organomegaly, non distended, no mass Genitourinary: other - no trivedi Extremities: no cyanosis, other - bilateral leg cellulits noted Skin: no rash 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, oriented x 3, responsive Lymphatic: no neck adenopathy Musculoskeletal: no effusion Objective Chest x-ray - nad Microbiology Date/Time Source Procedure Growth Status 12/09/17 17:50 Blood Blood Culture - Preliminary NO GROWTH AFTER 72 HOURS Resulted 12/09/17 19:20 Nasal Nares Left MRSA Culture - Final Staphylococcus Aureus - Mrsa Complete 12/11/17 19:15 Indwelling Cath Urine Culture - Preliminary Resulted 12/09/17 19:20 Rectum VRE Culture - Final Enterococcus Faecium - Vre Complete Microbiology Date/Time Source Procedure Growth Status 12/11/17 19:15 Indwelling Cath Urine Culture - Preliminary Resulted urine culture - esbl e.coli Labs Test 12/11/17 06:17 White Blood Count 4.5 K/UL (4.8-10.8) Red Blood Count 4.46 M/UL (4.20-5.40) Hemoglobin 12.0 G/DL (12.0-16.0) Hematocrit 37.4 % (37.0-47.0) Mean Corpuscular Volume 84 FL (80-99) Mean Corpuscular Hemoglobin 26.8 PG (27.0-31.0) Mean Corpuscular Hemoglobin Concent 32.0 G/DL (32.0-36.0) Red Cell Distribution Width 14.9 % (11.6-14.8) Platelet Count 168 K/UL (150-450) Mean Platelet Volume 6.4 FL (6.5-10.1) Neutrophils (%) (Auto) 56.6 % (45.0-75.0) Lymphocytes (%) (Auto) 28.7 % (20.0-45.0) Monocytes (%) (Auto) 12.9 % (1.0-10.0) Eosinophils (%) (Auto) 1.1 % (0.0-3.0) Basophils (%) (Auto) 0.7 % (0.0-2.0) Sodium Level 138 MMOL/L (136-145) Potassium Level 5.0 MMOL/L (3.5-5.1) Chloride Level 103 MMOL/L (98-107) Carbon Dioxide Level 29 MMOL/L (21-32) Anion Gap 6 mmol/L (5-15) Blood Urea Nitrogen 13 mg/dL (7-18) Creatinine 0.7 MG/DL (0.55-1.30) Estimat Glomerular Filtration Rate > 60 mL/min (>60) Glucose Level 106 MG/DL (74-106) Calcium Level 8.8 MG/DL (8.5-10.1) Current Medications Medications (Trade) Dose Ordered Sig/Shiraz Route PRN Reason Start Time Stop Time Status Last Admin Dose Admin Acetaminophen (Tylenol) 650 mg Q6H PRN ORAL Mild Pain/Temp > 100.5 12/09/17 21:00 01/08/18 20:59 12/12/17 14:03 Acetaminophen/ Hydrocodone Bitart (Montalba 10/325) 1 tab Q4H PRN ORAL Severe Pain (Pain Scale 7-10) 12/12/17 05:15 12/19/17 05:14 12/13/17 02:49 Acetaminophen/ Hydrocodone Bitart (Montalba 5/325) 1 tab Q4H PRN ORAL Moderate Pain (Pain Scale 4-6) 12/12/17 05:15 12/19/17 05:14 12/12/17 08:32 Aspirin (Ecotrin) 81 mg DAILY ORAL 12/10/17 09:00 01/09/18 08:59 12/13/17 09:51 Clonidine HCl (Catapres Tab) 0.1 mg Q12H PRN ORAL For High Blood Pressure 12/12/17 13:30 01/11/18 13:29 Diltiazem HCl (Cardizem) 60 mg EVERY 8 HOURS ORAL 12/10/17 06:00 01/09/18 05:59 12/13/17 13:04 Divalproex Sodium (Depakote) 250 mg EVERY 12 HOURS ORAL 12/10/17 09:00 01/09/18 08:59 12/13/17 09:51 Docusate Sodium (Colace) 100 mg DAILY ORAL 12/10/17 09:00 01/09/18 08:59 12/13/17 09:51 Escitalopram Oxalate (Lexapro) 10 mg DAILY ORAL 12/14/17 09:00 01/13/18 08:59 Heparin Sodium (Porcine) (Heparin 5000 units/ml) 5,000 units EVERY 12 HOURS SUBQ 12/10/17 21:00 01/09/18 20:59 12/13/17 10:03 Hydralazine HCl (Apresoline) 10 mg EVERY 6 HOURS ORAL 12/10/17 00:00 01/09/18 00:00 12/13/17 12:16 Hydralazine HCl (Apresoline) 10 mg Q6H PRN ORAL SBP > 160mmHg 12/10/17 10:15 01/09/18 10:14 12/13/17 15:47 Lorazepam (Ativan 2mg/ml 1ml) 0.5 mg EVERY 12 HOURS PRN IM For Anxiety 12/09/17 23:15 12/16/17 23:14 Magnesium Hydroxide (Mom) 30 ml DAILY ORAL 12/10/17 09:00 01/09/18 08:59 Meropenem 1 gm/ Dextrose 110 ml @ 220 mls/hr Q8HR IVPB 12/13/17 22:00 12/18/17 21:59 Morphine Sulfate (Morphine Sulfate) 4 mg Q3H PRN IVP Severe Breakthru Pain (>7) 12/12/17 06:00 12/16/17 20:59 12/13/17 16:22 Multivitamins Therapeutic (Therapeutic Multivitamin) 1 ea DAILY ORAL 12/10/17 09:00 01/09/18 08:59 12/13/17 09:51 Ondansetron HCl (Zofran) 4 mg Q4H PRN IVP Nausea & Vomiting 12/09/17 21:00 01/08/18 20:59 12/13/17 10:24 Phenazopyridine HCl (Pyridium) 200 mg THREE TIMES A DAY ORAL 12/10/17 09:00 01/09/18 08:59 12/13/17 12:16 Polyethylene Glycol (Miralax) 17 gm BEDTIME ORAL 12/10/17 21:00 01/09/18 20:59 Aleisha Coronel MD Dec 13, 2017 16:59
[2017-12-13] MEDS: Bactrim-DS 1 tab ORAL SCH (17:28)
[2017-12-13] MEDS: Miralax 17gm pkt ORAL SCH (21:30)
[2017-12-13] MEDS: Meropenem 1 GM in D5W 110 ML IVPB SCH (21:31)
[2017-12-13] MEDS ORDERED: Piperacillin/Tazobactam 3.375 GM in D5W 110 ML IVPB SCH (22:00)
[2017-12-14] VITALS (7 sets, daily range): BP systolic 101–171; BP diastolic 65–104
[2017-12-14] MEDS: HydrALAZINE 10mg Tab ORAL SCH ×5 (00:54→23:50)
[2017-12-14] MEDS: Morphine Sulfate 4mg/ml Inj (IV USE ONLY) IVP PRN ×3 (02:04→08:31)
[2017-12-14] MEDS: Meropenem 1 GM in D5W 110 ML IVPB SCH (05:17)
[2017-12-14] MEDS: dilTIAZem HCl 60mg tab ORAL SCH ×3 (05:17→21:05)
--- NOTE | 2017-12-14 06:12 | General Progress Note ---
Assessment/Plan Assessment/Plan # Leukopenia. Wbc of 5.0 upon admission. Is likely related to HEPATITIS C, also likely related to uti/lower ext cellulitis, currently in the 4-6k range --> Monitor wbc count and administer Neupogen as needed or d/c certain med --> HIV is negative for infection --> US of the abdomen. Pending. --> On abx aurora and bactrim as per ID service, appreciate recs # Coagulopathy with nml PT/INR --> vit K on prn basis --> ffp if inr gets any worse # Anemia, mild. Obtain w/u if Hgb drops below 10. --> Current Hgb at 12.0 # Sepsis. --> on abx as per ID service # Lactic Acidosis. Trend lactate. as per primary # Left Leg Cellulitis. Doxcycline added for coverage of LLE cellulitis. --> Wound care. # UTI. on abx I GREATLY APPRECIATE CONSULTATION. Subjective Constitutional: Denies: no symptoms, chills, diaphoresis, fever, malaise, weakness, other HEENT: Denies: no symptoms, eye pain, blurred vision, tearing, double vision, ear pain, ear discharge, nose pain, nose congestion, throat pain, throat swelling, mouth pain, mouth swelling, other Cardiovascular: Denies: no symptoms, chest pain, edema, irregular heart rate, lightheadedness, palpitations, syncope, other Respiratory: Denies: no symptoms, cough, orthopnea, shortness of breath, SOB with excertion, SOB at rest, sputum, stridor, wheezing, other Gastrointestinal/Abdominal: Denies: no symptoms, abdomen distended, abdominal pain, black stools, tarry stools, blood in stool, constipated, diarrhea, difficulty swallowing, nausea, poor appetite, poor fluid intake, rectal bleeding , vomiting, other Genitourinary: Denies: no symptoms, burning, discharge, frequency, flank pain, hematuria, incontinence, pain, urgency, other Neurologic/Psychiatric: Denies: no symptoms, anxiety, depressed, emotional problems, headache, numbness, paresthesia, pre-existing deficit, seizure, tingling, tremors, weakness, other Endocrine: Denies: no symptoms, excessive sweating, flushing, intolerance to cold, intolerance to heat, increased hunger, increased thirst, increased urine, unexplained weight gain, unexplained weight loss, other Hematologic/Lymphatic: Denies: no symptoms, anemia, easy bleeding, easy bruising, other Allergies: Coded Allergies: HALOPERIDOL (Verified Allergy, Unknown, 01/28/09) HALOPERIDOL LACTATE (Unverified Allergy, Unknown, 07/30/16) VANCOMYCIN (Unverified Adverse Reaction, Intermediate, Shortness of Breath , 06/26/13) Subjective Pt awake and alert. No acute events. H/H stable at this time. Refused BLOOD draw this am Objective Last 24 Hour Vital Signs Date Time Temp Pulse Resp B/P (MAP) Pulse Ox O2 Delivery O2 Flow Rate FiO2 12/14/17 05:17 145/94 12/14/17 05:17 70 145/94 12/14/17 04:00 98.2 70 17 145/94 (111) 93 98.2 70 12/14/17 00:54 163/104 12/14/17 00:00 98.0 75 18 163/104 (123) 92 98.0 75 12/13/17 21:29 75 151/88 12/13/17 21:00 Room Air 12/13/17 20:00 97.9 75 15 151/88 (109) 92 97.9 12/13/17 17:29 164/92 12/13/17 16:00 97.3 72 20 164/92 (116) 95 97.3 12/13/17 15:47 164/92 12/13/17 13:04 92 163/82 12/13/17 12:16 171/79 12/13/17 12:15 163/82 (109) 92 12/13/17 12:00 97.5 81 20 171/79 (109) 95 97.5 12/13/17 09:00 Room Air 12/13/17 08:00 98.8 69 18 118/66 (83) 97 98.8 Intake and Output 12/13/17 12/14/17 19:00 07:00 Intake Total 940 ml 110 ml Output Total 700 ml 1300 ml Balance 240 ml -1190 ml Intake Oral 840 ml IV Total 100 ml 110 ml Output Urine Total 700 ml 1300 ml Height (Feet): 5 Height (Inches): 0.00 Weight (Pounds): 250 General Appearance: no apparent distress EENT: TMs normal Neck: supple Cardiovascular: normal peripheral pulses Respiratory/Chest: lungs clear Abdomen: normal bowel sounds Extremities: non-tender Yao Aden MD Dec 14, 2017 06:12
[2017-12-14] MEDS: Multivitamin w/Minerals tab ORAL SCH (08:31)
[2017-12-14] MEDS: Phenazopyridine 200mg tab ORAL SCH ×3 (08:31→18:29)
[2017-12-14] MEDS: Docusate 100mg cap ORAL SCH (08:31)
[2017-12-14] MEDS: Milk of Magnesia 30ml Ud ORAL SCH ×2 (08:31→08:39)
[2017-12-14] MEDS: Aspirin EC 81mg tab ORAL SCH (08:31)
[2017-12-14] MEDS: Bactrim-DS 1 tab ORAL SCH ×2 (08:31→18:23)
[2017-12-14] MEDS: Heparin 5000 units/ml inj SUBQ SCH ×2 (08:34→21:00)
[2017-12-14] MEDS: HYDROcodone/Acetamin 10/325 tab ORAL PRN ×2 (13:48→21:06)
[2017-12-14] MEDS ORDERED: Meropenem 1 GM in NS 110 ML IVPB SCH (14:00)
--- NOTE | 2017-12-14 16:12 | Discharge Summary ---
Discharge Summary Hospital Course Date of Admission Dec 09, 2017 at 18:30 Date of Discharge Admitting Diagnosis weakness, vomiting, UTI HPI Charisse Couch is a 67 year old female who was admitted on Dec 09, 2017 at 18:30 for Weakness,Vomiting,Urinary Tract Infection Discharge Discharge Disposition Patient was discharged to Everardo Azevedo MD Dec 14, 2017 16:12
[2017-12-14] MEDS ORDERED: Cephalexin 500mg cap ORAL SCH (18:00)
[2017-12-14] MEDS: Cephalexin 500mg cap ORAL SCH ×2 (18:23→21:05)
[2017-12-14] MEDS: Miralax 17gm pkt ORAL SCH (21:00)
--- NOTE | 2017-12-14 22:30 | General Progress Note ---
Assessment/Plan Status: progressing Assessment/Plan Pt with sepsis 2/2 acute UTI, likely cystitis. Also w/ area of cellulitis on LLE. - ID consulted- recs appreciated - Empiric ceftriaxone for UTI (12/09-12/13)- started meropenem 12/13 given ESBL- switched to PO nitrofurantoin given IV displacement - Doxycycline started for coverage of LLE cellulitis (12/10-)- - Check venous duplex BLE- pending- patient refused exam - F/u urine cx--ESBL E.coli - F/u blood cx--ngtd - Trend lactate--normalized - s/p IVFs - Wound care - Pain control, bowel regimen - Nausea control - Supportive care - Likely d/c today if bed available DVT Prophylaxis: HSQ Code Status: Full Hospital Classification Declaration: Based on this initial evaluation, and depending on the patient's clinical course, I anticipate that this patient will require hospitalization for 1-2 days for sepsis, UTI, cellulitis, and close respiratory/hemodynamic monitoring. Disposition: Once the patient is stable to leave the hospital, I anticipate the patient will likely be discharged to the following environment: back to SNF (pt from [facility]) I spent 43 minutes on this patient's case, and >50% was dedicated to counseling and/or care coordination. Discussed with patient/family, nursing staff, SW/NEL, ID regarding clinical status, treatment course, and disposition planning. Time of note may not reflect time of encounter. Subjective Date patient seen: Dec 14, 2017 Time patient seen: 13:30 Constitutional: Reports: no symptoms HEENT: Reports: no symptoms Cardiovascular: Reports: no symptoms Respiratory: Reports: no symptoms Gastrointestinal/Abdominal: Reports: no symptoms Genitourinary: Reports: no symptoms Neurologic/Psychiatric: Reports: pre-existing deficit Endocrine: Reports: no symptoms Hematologic/Lymphatic: Reports: no symptoms Allergies: Coded Allergies: HALOPERIDOL (Verified Allergy, Unknown, 01/28/09) HALOPERIDOL LACTATE (Unverified Allergy, Unknown, 07/30/16) VANCOMYCIN (Unverified Adverse Reaction, Intermediate, Shortness of Breath , 06/26/13) All Systems: reviewed and negative except above Subjective Events of overnight noted Chart reviewed by me Patient pulled IV and Lockett out Asking for IV morphine- doesnt know why she pulled IV out Feels leg is better No chest pain or dyspnea Objective Last 24 Hour Vital Signs Date Time Temp Pulse Resp B/P (MAP) Pulse Ox O2 Delivery O2 Flow Rate FiO2 12/14/17 21:05 76 171/92 12/14/17 21:00 Room Air 12/14/17 20:00 97.3 76 1 171/92 (118) 93 97.3 12/14/17 18:57 151/65 (93) 12/14/17 18:28 164/77 12/14/17 16:00 97.3 76 18 101/82 (88) 92 97.3 12/14/17 13:48 141/80 12/14/17 13:48 100 141/80 12/14/17 12:00 98.0 100 20 141/80 (100) 95 98.0 12/14/17 08:30 Room Air 12/14/17 08:00 97.7 85 20 132/90 (104) 90 97.7 12/14/17 05:17 145/94 12/14/17 05:17 70 145/94 12/14/17 04:00 98.2 70 17 145/94 (111) 93 98.2 70 12/14/17 00:54 163/104 12/14/17 00:00 98.0 75 18 163/104 (123) 92 98.0 75 Intake and Output 12/13/17 12/14/17 19:00 07:00 Intake Total 940 ml 220 ml Output Total 700 ml 1300 ml Balance 240 ml -1080 ml Intake Oral 840 ml IV Total 100 ml 220 ml Output Urine Total 700 ml 1300 ml Height (Feet): 5 Height (Inches): 0.00 Weight (Pounds): 335 General Appearance: no apparent distress, alert, confused EENT: PERRL/EOMI, normal ENT inspection, TMs normal, pharynx normal Neck: non-tender, supple Cardiovascular: normal peripheral pulses, normal rate, regular rhythm Respiratory/Chest: chest wall non-tender, lungs clear, decreased breath sounds Abdomen: normal bowel sounds, soft Pelvis: normal external exam Extremities: normal range of motion Edema: no edema noted Arm (L), no edema noted Arm (R) Edema: trace edema 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
--- NOTE | 2017-12-14 23:16 | General Progress Note ---
Assessment/Plan Status: stable Assessment/Plan Schizophrenia MDD the pt is not a dts/dto -cont depakote -increase lexapro 10mg qam Subjective Date patient seen: Dec 14, 2017 Neurologic/Psychiatric: Reports: anxiety, depressed, emotional problems, headache Allergies: Coded Allergies: HALOPERIDOL (Verified Allergy, Unknown, 01/28/09) HALOPERIDOL LACTATE (Unverified Allergy, Unknown, 07/30/16) VANCOMYCIN (Unverified Adverse Reaction, Intermediate, Shortness of Breath , 06/26/13) Objective Last 24 Hour Vital Signs Date Time Temp Pulse Resp B/P (MAP) Pulse Ox O2 Delivery O2 Flow Rate FiO2 12/14/17 21:05 76 171/92 12/14/17 21:00 Room Air 12/14/17 20:00 97.3 76 1 171/92 (118) 93 97.3 12/14/17 18:57 151/65 (93) 12/14/17 18:28 164/77 12/14/17 16:00 97.3 76 18 101/82 (88) 92 97.3 12/14/17 13:48 141/80 12/14/17 13:48 100 141/80 12/14/17 12:00 98.0 100 20 141/80 (100) 95 98.0 12/14/17 08:30 Room Air 12/14/17 08:00 97.7 85 20 132/90 (104) 90 97.7 12/14/17 05:17 145/94 12/14/17 05:17 70 145/94 12/14/17 04:00 98.2 70 17 145/94 (111) 93 98.2 70 12/14/17 00:54 163/104 12/14/17 00:00 98.0 75 18 163/104 (123) 92 98.0 75 Intake and Output 12/13/17 12/14/17 19:00 07:00 Intake Total 940 ml 220 ml Output Total 700 ml 1300 ml Balance 240 ml -1080 ml Intake Oral 840 ml IV Total 100 ml 220 ml Output Urine Total 700 ml 1300 ml Height (Feet): 5 Height (Inches): 0.00 Weight (Pounds): 335 General Appearance: no apparent distress, alert Neurologic: oriented x 3, responsive, depressed affect Harris Ballesteros MD Dec 14, 2017 23:16
[2017-12-15] VITALS (7 sets, daily range): BP systolic 103–165; BP diastolic 64–109
[2017-12-15] MEDS: dilTIAZem HCl 60mg tab ORAL SCH ×3 (05:35→22:14)
[2017-12-15] MEDS: HydrALAZINE 10mg Tab ORAL SCH ×4 (05:35→23:09)
[2017-12-15] MEDS: HYDROcodone/Acetamin 10/325 tab ORAL PRN ×4 (05:38→22:52)
[2017-12-15] MEDS: Aspirin EC 81mg tab ORAL SCH (08:30)
[2017-12-15] MEDS: Docusate 100mg cap ORAL SCH (08:30)
[2017-12-15] MEDS: Cephalexin 500mg cap ORAL SCH ×4 (08:31→21:03)
[2017-12-15] MEDS: Phenazopyridine 200mg tab ORAL SCH ×3 (08:31→18:42)
[2017-12-15] MEDS: Multivitamin w/Minerals tab ORAL SCH (08:31)
[2017-12-15] MEDS: Bactrim-DS 1 tab ORAL SCH ×2 (08:31→18:43)
[2017-12-15] MEDS: Milk of Magnesia 30ml Ud ORAL SCH (08:34)
[2017-12-15] MEDS: Heparin 5000 units/ml inj SUBQ SCH ×2 (08:34→21:05)
[2017-12-15] MEDS: HydrALAZINE 10mg Tab ORAL PRN (08:44)
[2017-12-15] MEDS ORDERED: CEPHALEXIN500 MG ORAL (11:09)
[2017-12-15] MEDS ORDERED: NITROFURANTOIN100 M2 ORAL (11:10)
[2017-12-15] MEDS ORDERED: BACTRIM DS TAB1 EAC1 ORAL (11:10)
--- NOTE | 2017-12-15 12:23 | General Progress Note ---
Assessment/Plan Status: stable, progressing Assessment/Plan Schizophrenia MDD the pt is not a dts/dto -cont depakote -increase lexapro 10mg qam Subjective Date patient seen: Dec 15, 2017 Neurologic/Psychiatric: Reports: anxiety, depressed, emotional problems Allergies: Coded Allergies: HALOPERIDOL (Verified Allergy, Unknown, 01/28/09) HALOPERIDOL LACTATE (Unverified Allergy, Unknown, 07/30/16) VANCOMYCIN (Unverified Adverse Reaction, Intermediate, Shortness of Breath , 06/26/13) Subjective c/o headache and stated that she does not want to leave Objective Last 24 Hour Vital Signs Date Time Temp Pulse Resp B/P (MAP) Pulse Ox O2 Delivery O2 Flow Rate FiO2 12/15/17 12:00 98.1 95 19 103/64 (77) 92 98.1 12/15/17 11:50 167/91 12/15/17 10:27 97.0 12/15/17 09:57 97.0 12/15/17 09:00 Room Air 12/15/17 08:44 162/76 12/15/17 08:00 97.4 76 19 162/77 (105) 92 97.4 12/15/17 05:35 163/76 12/15/17 05:35 72 163/76 12/15/17 04:00 97.0 72 20 163/76 (105) 91 97.0 12/15/17 00:00 97.5 68 20 165/83 (110) 93 97.5 12/14/17 23:50 171/92 12/14/17 21:05 76 171/92 12/14/17 21:00 Room Air 12/14/17 20:00 97.3 76 1 171/92 (118) 93 97.3 12/14/17 18:57 151/65 (93) 12/14/17 18:28 164/77 12/14/17 16:00 97.3 76 18 101/82 (88) 92 97.3 12/14/17 13:48 141/80 12/14/17 13:48 100 141/80 Intake and Output 12/14/17 12/15/17 19:00 07:00 Intake Total 700 ml 240 ml Output Total 256 ml Balance 444 ml 240 ml Intake Oral 700 ml 240 ml Output Urine Total 255 ml Stool Total 1 ml # Voids 2 Height (Feet): 5 Height (Inches): 0.00 Weight (Pounds): 335 General Appearance: no apparent distress, alert, morbidly obese Neurologic: oriented x 3, responsive, depressed affect Harris Ballesteros MD Dec 15, 2017 12:23
[2017-12-15] MEDS: Morphine Sulfate 4mg/ml Inj (IV USE ONLY) IVP PRN (13:19)
--- NOTE | 2017-12-15 15:45 | Infectious Diseases Prog Note ---
Assessment/Plan Assessment/Plan ASSESSMENT AND PLAN: 1. esbl e.coli uti, bilateral leg cellulitis, complicated uti, ? strep uti vs contaminant - now on oral bactrim, macrobid and keflex, treat x 7 days more - patient refusing iv abx per d/w RN - d/w patient and told her risks of urosepsis by not taking iv abx/meropenem and patient aware - bilateral leg cellulitis better - monitor labs - d/w Dr. Azevedo 2. MRSA colonization, vre colonization, isolation 3. Hypertension. 4. Depression. 5. Schizophrenia. 6. Obesity. 7. Venous stasis. 8. Lymphedema. 9. Possible COPD. 10. Past medical history noted. 11. Social history positive for smoking. 12. Family history noncontributory. 13. MAR was noted. 14. Case discussed with RN. 15. Allergies include vancomycin and haloperidol. Subjective Constitutional: Denies: fever HEENT: Denies: congestion Respiratory: Denies: shortness of breath Cardiovascular: Denies: chest pain Gastrointestinal/Abdominal: Denies: nausea, vomiting Neurologic: Denies: headache Psychiatric: Denies: depression Skin: Denies: rash Hematologic: Denies: bleeding Musculoskeletal: Denies: pain Allergies: Coded Allergies: HALOPERIDOL (Verified Allergy, Unknown, 01/28/09) HALOPERIDOL LACTATE (Unverified Allergy, Unknown, 07/30/16) VANCOMYCIN (Unverified Adverse Reaction, Intermediate, Shortness of Breath , 06/26/13) Objective Vital Signs Last 24 Hour Vital Signs Date Time Temp Pulse Resp B/P (MAP) Pulse Ox O2 Delivery O2 Flow Rate FiO2 12/15/17 13:39 98.1 12/15/17 13:27 71 167/91 12/15/17 13:19 98.1 12/15/17 12:00 98.1 95 19 103/64 (77) 92 98.1 12/15/17 11:50 167/91 12/15/17 10:27 97.0 12/15/17 09:57 97.0 12/15/17 09:00 Room Air 12/15/17 08:44 162/76 12/15/17 08:00 97.4 76 19 162/77 (105) 92 97.4 12/15/17 05:35 163/76 12/15/17 05:35 72 163/76 12/15/17 04:00 97.0 72 20 163/76 (105) 91 97.0 12/15/17 00:00 97.5 68 20 165/83 (110) 93 97.5 12/14/17 23:50 171/92 12/14/17 21:05 76 171/92 12/14/17 21:00 Room Air 12/14/17 20:00 97.3 76 1 171/92 (118) 93 97.3 12/14/17 18:57 151/65 (93) 12/14/17 18:28 164/77 12/14/17 16:00 97.3 76 18 101/82 (88) 92 97.3 Height (Feet): 5 Height (Inches): 0.00 Weight (Pounds): 335 General Appearance: no acute distress HEENT: normocephalic, atraumatic, anicteric, mucous membranes moist Respiratory/Chest: lungs clear, normal breath sounds, no respiratory distress, no accessory muscle use Cardiovascular: normal rate, regular rhythm, no gallop/murmur, no JVD Abdomen: normal bowel sounds, soft, non tender, no organomegaly, non distended Genitourinary: other - no trivedi Extremities: no cyanosis, other - cellulitis Skin: no rash Neurologic/Psychiatric: senior 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 II-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 grossly normal, alert, responsive Lymphatic: no neck adenopathy Musculoskeletal: no effusion Objective Chest x-ray - nad Microbiology Date/Time Source Procedure Growth Status 12/09/17 17:50 Blood Blood Culture - Final NO GROWTH AFTER 5 DAYS Complete 12/09/17 19:20 Nasal Nares Left MRSA Culture - Final Staphylococcus Aureus - Mrsa Complete 12/11/17 19:15 Indwelling Cath Urine Culture - Preliminary Streptococcus Species Resulted 12/09/17 19:20 Rectum VRE Culture - Final Enterococcus Faecium - Vre Complete wbc - 4.5 hgb - 12.0 cr - 0.7 Current Medications Medications (Trade) Dose Ordered Sig/Shiraz Route PRN Reason Start Time Stop Time Status Last Admin Dose Admin Acetaminophen (Tylenol) 650 mg Q6H PRN ORAL Mild Pain/Temp > 100.5 12/09/17 21:00 01/08/18 20:59 12/14/17 04:03 Acetaminophen/ Hydrocodone Bitart ([place] 10/325) 1 tab Q4H PRN ORAL Severe Pain (Pain Scale 7-10) 12/12/17 05:15 12/19/17 05:14 12/15/17 09:57 Acetaminophen/ Hydrocodone Bitart ([place] 5/325) 1 tab Q4H PRN ORAL Moderate Pain (Pain Scale 4-6) 12/12/17 05:15 12/19/17 05:14 12/12/17 08:32 Aspirin (Ecotrin) 81 mg DAILY ORAL 12/10/17 09:00 01/09/18 08:59 12/15/17 08:30 Cephalexin (Keflex) 500 mg FOUR TIMES A DAY ORAL 12/14/17 18:00 12/21/17 17:59 12/15/17 11:51 Clonidine HCl (Catapres Tab) 0.1 mg Q12H PRN ORAL For High Blood Pressure 12/12/17 13:30 01/11/18 13:29 Diltiazem HCl (Cardizem) 60 mg EVERY 8 HOURS ORAL 12/10/17 06:00 01/09/18 05:59 12/15/17 13:27 Divalproex Sodium (Depakote) 250 mg EVERY 12 HOURS ORAL 12/10/17 09:00 01/09/18 08:59 12/15/17 08:31 Docusate Sodium (Colace) 100 mg DAILY ORAL 12/10/17 09:00 01/09/18 08:59 12/15/17 08:30 Escitalopram Oxalate (Lexapro) 10 mg DAILY ORAL 12/14/17 09:00 01/13/18 08:59 12/15/17 08:31 Heparin Sodium (Porcine) (Heparin 5000 units/ml) 5,000 units EVERY 12 HOURS SUBQ 12/10/17 21:00 01/09/18 20:59 12/15/17 08:34 Hydralazine HCl (Apresoline) 10 mg EVERY 6 HOURS ORAL 12/10/17 00:00 01/09/18 00:00 12/15/17 11:50 Hydralazine HCl (Apresoline) 10 mg Q6H PRN ORAL SBP > 160mmHg 12/10/17 10:15 01/09/18 10:14 12/15/17 08:44 Lorazepam (Ativan 2mg/ml 1ml) 0.5 mg EVERY 12 HOURS PRN IM For Anxiety 12/09/17 23:15 12/16/17 23:14 Magnesium Hydroxide (Mom) 30 ml DAILY ORAL 12/10/17 09:00 01/09/18 08:59 Morphine Sulfate (Morphine Sulfate) 4 mg Q3H PRN IVP Severe Breakthru Pain (>7) 12/12/17 06:00 12/16/17 20:59 12/15/17 13:19 Multivitamins Therapeutic (Therapeutic Multivitamin) 1 ea DAILY ORAL 12/10/17 09:00 01/09/18 08:59 12/15/17 08:31 Nitrofurantoin (Macrobid) 100 mg EVERY 12 HOURS ORAL 12/14/17 21:00 01/13/18 20:59 12/15/17 08:32 Ondansetron HCl (Zofran) 4 mg Q4H PRN IVP Nausea & Vomiting 12/09/17 21:00 01/08/18 20:59 12/15/17 13:20 Phenazopyridine HCl (Pyridium) 200 mg THREE TIMES A DAY ORAL 12/10/17 09:00 01/09/18 08:59 12/15/17 11:50 Polyethylene Glycol (Miralax) 17 gm BEDTIME ORAL 12/10/17 21:00 01/09/18 20:59 12/13/17 21:30 Trimethoprim/ Sulfamethoxazole (Bactrim-DS) 1 tab TWICE A DAY ORAL 12/13/17 18:00 12/20/17 17:59 12/15/17 08:31 Aleisha Coronel MD Dec 15, 2017 15:45
[2017-12-15] MEDS: Miralax 17gm pkt ORAL SCH (21:04)
--- NOTE | 2017-12-16 13:37 | Discharge Summary ---
Discharge Summary Discharge Summary _ DATE OF ADMISSION: 12/09/2017 DATE OF DISCHARGE: 12/15/2017 CONSULTANTS: Dr. Aleisha Aden BRIEF HOSPITAL COURSE: Patient is a 67-year-old female, with past medical history of hypertension, depression, schizophrenia, venous stasis and chronic lymphedema presented to ED complaining of dysuria and emesis. Patient was residing in a SNF. She complained of dysuria and suprapubic pain 1-2 days. She also had subjective fevers with nausea and nonbloody, nonbilious emesis 1. She denied chest pain, shortness of breath, dizziness. She noted worsening of left leg swelling with some redness. On evaluation at ED, she was afebrile, temperature 97.8. Blood pressure was elevated to 170/86. Blood work was without leukocytosis, however, lactic acid was elevated to 2.4. Urinalysis showed too many to count WBC, 5-10 RBC, 3+ leukocyte esterase, positive nitrites, +1 ketones, 2+ blood, and 2+ protein. EKG was in normal sinus rhythm. Chest x-ray showed no acute process. She was then admitted for evaluation of cellulitis on the left lower extremity and UTI, possible sepsis. She was started empirically on ceftriaxone and doxycycline. She was started on IV hydration and was placed on prn anti- emetics. She was given wound care. ID specialist was consulted. She was continued on doxycycline and Rocephin for MRSA and gram-negative coverage and Streptococcus coverage. Patient is allergic to vancomycin. Unable to give Zyvox as patient is on antidepressants. Patient was anxious and paranoid. She complained of depressed mood and anhedonia. She was seen by psychiatrist. She was continued on Depakote and Lexapro was increased to 10 mg every morning. She was noted to have leukopenia. Outsole Beveler was consulted. WBC was initially 5 upon admission and went down to 4. HIV screen was negative. She also had mild anemia, however, hemoglobin was stable. Urine showed growth of ESBL Escherichia coli. Antibiotics were switched to meropenem and Bactrim. Patient was refusing IV. Antibiotics were switched to po. She refused venous studies. She was assessed by psychiatrist to be not a danger to self nor to others. Lactic acid normalized. Patient was eventually discharged to snf to continue oral antibiotics. FINAL DIAGNOSES: Sepsis, secondary to acute UTI likely cystitis and cellulitis on left lower extremity ESBL UTI Lactic acidosis Chronic venous stasis Lymphedema Nausea and vomiting MRSA and VRE colonization Hypertension Depression Schizophrenia Obesity DISPOSITION: [facility] DISCHARGE MEDICATIONS: Refer to Discharge Medication List. Continue Keflex 500 mg po QID 9 days; Bactrim DS BID 8 days; Macrobid 100 mg po q 12 hours 6 days. I have been assigned to dictate discharge summary on this account, and I was not involved in the patient's management. Julee Gonzalez NP Dec 16, 2017 13:37
--- NOTE | 2017-12-16 17:01 | General Progress Note ---
Assessment/Plan Status: stable Assessment/Plan # Leukopenia. Wbc of 5.0 upon admission. Is likely related to HEPATITIS C, also likely related to uti/lower ext cellulitis, currently in the 4-6k range --> Monitor wbc count and administer Neupogen as needed or d/c certain med --> HIV is negative for infection --> US of the abdomen. Pending. --> On abx aurora and bactrim as per ID service, appreciate recs # Coagulopathy with nml PT/INR --> vit K on prn basis --> ffp if inr gets any worse # Anemia, mild. Obtain w/u if Hgb drops below 10. --> Current Hgb at 12.0 # Sepsis. --> on abx as per ID service # Lactic Acidosis. Trend lactate. as per primary # Left Leg Cellulitis. Doxcycline added for coverage of LLE cellulitis. --> Wound care. # UTI. on abx I GREATLY APPRECIATE CONSULTATION. Subjective Date patient seen: Dec 15, 2017 Time patient seen: 07:00 ROS Limited/Unobtainable: Yes Allergies: Coded Allergies: HALOPERIDOL (Verified Allergy, Unknown, 01/28/09) HALOPERIDOL LACTATE (Unverified Allergy, Unknown, 07/30/16) VANCOMYCIN (Unverified Adverse Reaction, Intermediate, Shortness of Breath , 06/26/13) All Systems: reviewed and negative except above Subjective Pt is stable and medically cleared for DC. No acute distress. Objective Last 24 Hour Vital Signs Date Time Temp Pulse Resp B/P (MAP) Pulse Ox O2 Delivery O2 Flow Rate FiO2 12/15/17 23:22 97.6 12/15/17 23:09 140/109 12/15/17 22:52 97.6 12/15/17 22:14 69 159/82 12/15/17 21:24 162/77 12/15/17 20:00 97.6 67 20 162/81 (108) 92 97.6 12/15/17 18:43 98.1 12/15/17 18:42 158/87 Intake and Output 12/15/17 12/16/17 19:00 07:00 Intake Total 600 ml 480 ml Balance 600 ml 480 ml Intake Oral 600 ml 480 ml # Voids 2 Height (Feet): 5 Height (Inches): 0.00 Weight (Pounds): 335 General Appearance: no apparent distress EENT: PERRL/EOMI Neck: normal alignment Cardiovascular: irregularly irregular Respiratory/Chest: no respiratory distress Abdomen: soft Yao Aden MD Dec 16, 2017 17:01
== END 2017-12-15 23:45 | DRG 720 ==
LOC: EDBD 16:55 → EMR 18:06 → EDBEDREQ 18:20 → 4E 18:30
DX: A41.9 Sepsis, unspecified organism (principal); E87.2 Acidosis; Z68.44 Body mass index [BMI] 60.0-69.9, adult; F20.9 Schizophrenia, unspecified; D68.9 Coagulation defect, unspecified; Z66 Do not resuscitate; N30.90 Cystitis, unspecified without hematuria; Z16.12 Extended spectrum beta lactamase (ESBL) resistance; I87.8 Other specified disorders of veins; Z16.21 Resistance to vancomycin; E66.9 Obesity, unspecified; I10 Essential (primary) hypertension; D64.9 Anemia, unspecified; L03.116 Cellulitis of left lower limb; F32.9 Major depressive disorder, single episode, unspecified; B19.20 Unspecified viral hepatitis C without hepatic coma; R11.2 Nausea with vomiting, unspecified; R51 Headache; Z22.322 Carrier or suspected carrier of Methicillin resistant Staphylococcus aureus; B95.2 Enterococcus as the cause of diseases classified elsewhere
CPT/HCPCS: 36415; 71045; 80048; 80053; 81003; 83605; 85025; 87040; 87081; 87086; 87181; 96361; 96365; 96366; 96375; 99285; J2405; J3490

== ENCOUNTER 2018-01-18 08:38 | Inpatient (IN) | payer MEDICAID ==
[~2018-01-18] VITALS: Ht 170.2 cm; Wt 136.1 kg
[~2018-01-18 08:38] MED LIST changes: +CEPHALEXIN500 MG ORAL; +DEBROX15 M1 LEFT EAR; +LATANOPROST 0.7.5 ML OP; +LORAZEPAM0.5 MG IM; +NITROFURANTOIN100 M2 ORAL; +PREMARIN0.45 MG ORAL
[2018-01-18 08:51] VITALS: BP 134/107
[2018-01-18] MEDS ORDERED: ZOFRAN ODT8 MG ORAL (08:51)
[2018-01-18] MEDS ORDERED: PROTONIX40 MG ORAL (08:51)
--- NOTE | 2018-01-18 09:12 | Emergency Room Report ---
History of Present Illness General Chief Complaint: Vomiting Source: Patient Present Illness HPI 67-year-old female presents ED complaining of chest pain, vomiting 2 days. Coming from snf facility. Chest pain comes and goes. Sharp, 9 out of 10, nonradiating. Notes multiple episodes of vomiting. States that she might also have a UTI. Previous history of frequent UTIs. Denies fevers or chills. Patient is well-known to [facility]. No other aggravating relieving factors. Denies any other associated symptoms Allergies: Coded Allergies: HALOPERIDOL (Verified Allergy, Unknown, 01/28/09) HALOPERIDOL LACTATE (Unverified Allergy, Unknown, 07/30/16) VANCOMYCIN (Unverified Adverse Reaction, Intermediate, Shortness of Breath , 06/26/13) Patient History Past Medical History: HTN, CHF, GERD, psych hx Past Surgical History: none Pertinent Family History: none Social History: Denies: smoking, alcohol use, drug use Now: No Immunizations: UTD Reviewed Nursing Documentation: PMH: Agreed; PSxH: Agreed Nursing Documentation-PMH Hx Cardiac Problems: Yes - HF Hx Hypertension: Yes Hx Asthma: No Hx COPD: Yes - Lymphedema Hx Cancer: No Hx Gastrointestinal Problems: Yes - GERD Hx Dialysis: No History Of Psychiatric Problem: Yes - obesity, depression, mood disorder, anxiety, Hx Cerebrovascular Accident: No Hx Seizures: No Hx Weakness: Yes Hx Fatigue: Yes Hx Neurologic Surgery: No Review of Systems All Other Systems: negative except mentioned in HPI Physical Exam Vital Signs Date Time Temp Pulse Resp B/P (MAP) Pulse Ox O2 Delivery O2 Flow Rate FiO2 01/18/18 08:38 98.2 70 20 138/109 95 Room Air 98.2 Sp02 EP Interpretation: reviewed, normal General Appearance: no apparent distress, alert, GCS 15, non-toxic, obese Head: normocephalic, atraumatic Eyes: bilateral eye normal inspection, bilateral eye PERRL ENT: hearing grossly normal, normal pharynx, no angioedema, normal voice Neck: full range of motion, supple/symm/no masses Respiratory: chest non-tender, lungs clear, normal breath sounds, speaking full sentences Cardiovascular #1: regular rate, rhythm, no edema Cardiovascular #2: 2+ carotid (R), 2+ carotid (L), 2+ radial (R), 2+ radial (L) , 2+ dorsalis pedis (R), 2+ dorsalis pedis (L) Gastrointestinal: normal bowel sounds, non tender, soft, non-distended, no guarding, no rebound Rectal: deferred Genitourinary: normal inspection, no CVA tenderness Musculoskeletal: back normal, gait/station normal, normal range of motion, non- tender Neurologic: alert, oriented x3, responsive, motor strength/tone normal, sensory intact, speech normal Psychiatric: judgement/insight normal, memory normal, no suicidal/homicidal ideation, anxious Reflexes: 3+ bicep (R), 3+ bicep (L), 3+ tricep (R), 3+ tricep (L), 3+ knee (R) , 3+ knee (L) Skin: normal color, no rash, warm/dry, well hydrated Lymphatic: no adenopathy Medical Decision Making Diagnostic Impression: Primary Impression: ACS (acute coronary syndrome) Additional Impressions: UTI (urinary tract infection) Qualified Codes: N39.0 - Urinary tract infection, site not specified Nausea and vomiting Qualified Codes: R11.2 - Nausea with vomiting, unspecified ER Course Hospital Course 67-year-old female presents ED complaining of chest pain, vomiting Differential diagnoses include: CA/unstable angina, contusion, muscle strain, PTX, rib fracture Clinical course Patient placed on stretcher. on surveillance system monitor. After initial history and physical I ordered labs, EKG, chest x-ray, morphine labs reviewed- no leukocytosis, hb/hct stable, electrolytes ok, trop negative, UA + bacteria EKG - NSR, no acute ischemic changes interpreted by me Chest x-ray- cardiomegaly CHF Chest pain improved after morphine. Well-known to [facility] has been here multiple times for atypical chest pain. However has significant cardiac risk factors. Given broad-spectrum antibiotics for UTI Case discussed with Dr. Luz and he agreed to accept the patient to his service for further care and support I. I feel this is a highly complex case requiring extensive working including EKG/Rhythm strip, Xray/CT/US, Blood/urine lab work, repeat exams while in ED, and administration of strong opiates/narcotics for pain control, admission to hospital or close patient follow up. Diagnosis - ACS, vomiting, UTI admitted to telemetry in serious condition Labs Test 01/18/18 09:05 01/18/18 09:20 Urine Color Yellow Urine Appearance Turbid Urine pH 8 (4.5-8.0) Urine Specific [place] 1.010 (1.005-1.035) Urine Protein 2+ (NEGATIVE) Urine Glucose (UA) Negative (NEGATIVE) Urine Ketones 1+ (NEGATIVE) Urine Blood 2+ (NEGATIVE) Urine Nitrite Positive (NEGATIVE) Urine Bilirubin Negative (NEGATIVE) Urine Urobilinogen 1 MG/DL (0.0-1.0) Urine Leukocyte Esterase 3+ (NEGATIVE) Urine RBC 10-15 /HPF (0 - 2) Urine WBC Tntc /HPF (0 - 2) Urine Squamous Epithelial Cells Few /LPF (NONE/OCC) Urine Bacteria Many /HPF (NONE) White Blood Count 4.7 K/UL (4.8-10.8) Red Blood Count 4.77 M/UL (4.20-5.40) Hemoglobin 12.7 G/DL (12.0-16.0) Hematocrit 40.2 % (37.0-47.0) Mean Corpuscular Volume 84 FL (80-99) Mean Corpuscular Hemoglobin 26.6 PG (27.0-31.0) Mean Corpuscular Hemoglobin Concent 31.6 G/DL (32.0-36.0) Red Cell Distribution Width 14.6 % (11.6-14.8) Platelet Count 166 K/UL (150-450) Mean Platelet Volume 6.8 FL (6.5-10.1) Neutrophils (%) (Auto) 65.7 % (45.0-75.0) Lymphocytes (%) (Auto) 22.7 % (20.0-45.0) Monocytes (%) (Auto) 8.2 % (1.0-10.0) Eosinophils (%) (Auto) 2.3 % (0.0-3.0) Basophils (%) (Auto) 1.1 % (0.0-2.0) Sodium Level 142 MMOL/L (136-145) Potassium Level 4.4 MMOL/L (3.5-5.1) Chloride Level 106 MMOL/L (98-107) Carbon Dioxide Level 31 MMOL/L (21-32) Anion Gap 6 mmol/L (5-15) Blood Urea Nitrogen 21 mg/dL (7-18) Creatinine 0.7 MG/DL (0.55-1.30) Estimat Glomerular Filtration Rate > 60 mL/min (>60) Glucose Level 103 MG/DL (74-106) Lactic Acid Level 1.40 mmol/L (0.4-2.0) Calcium Level 8.5 MG/DL (8.5-10.1) Total Bilirubin 0.5 MG/DL (0.2-1.0) Aspartate Amino Transf (AST/SGOT) 23 U/L (15-37) Alanine Aminotransferase (ALT/SGPT) 14 U/L (12-78) Alkaline Phosphatase 88 U/L (46-116) Total Creatine Kinase 56 U/L (26-308) Creatine Kinase MB < 0.5 NG/ML (0.0-3.6) Creatine Kinase MB Relative Index 0.8 Troponin I 0.012 ng/mL (0.000-0.056) Pro-B-Type Natriuretic Peptide 217 pg/mL (0-125) Total Protein 7.5 G/DL (6.4-8.2) Albumin 3.1 G/DL (3.4-5.0) Globulin 4.4 g/dL Albumin/Globulin Ratio 0.7 (1.0-2.7) Valproic Acid (Depakene) Level 22 MCG/ML (50-100) EKG Diagnostic Results Rate: normal Rhythm: NSR ST Segments: no acute changes ASA given to the pt in ED: No - given by ems Rhythm Strip Diag. Results EP Interpretation: yes Rhythm: NSR, no PVC's, no ectopy Chest X-Ray Diagnostic Results Chest X-Ray Diagnostic Results : Chest X-Ray Ordered: Yes # of Views/Limited/Complete: 1 View Indication: Chest Pain EP Interpretation: Yes Interpretation: no consolidation, no pneumothorax, other - cardiomegaly, congestion Impression: Other - chf Electronically Signed by: Electronically signed by Luke Lindquist MD Last Vital Signs Date Time Temp Pulse Resp B/P (MAP) Pulse Ox O2 Delivery O2 Flow Rate FiO2 01/18/18 08:51 97.7 79 16 134/107 95 Room Air 97.7 Status: improved Disposition: ADMITTED INPATIENT Condition: Serious Referrals: [id number],REFERRING (PCP) Luke Lindquist MD Jan 18, 2018 09:12
[2018-01-18 09:23] LABS: APPEARANCE,URINE TURBID; BILIRUBIN, URINE NEGATIVE (NEGATIVE); GLUCOSE, URINE (UA) NEGATIVE (NEGATIVE); KETONES,URINE 1+ (NEGATIVE); LEUKOCYTE ESTERASE ,URINE 3+ (NEGATIVE); NITRITE,URINE POSITIVE (NEGATIVE); PH,URINE 8 (4.5-8.0); PROTEIN,URINE 2+ (NEGATIVE); UROBILINOGEN,URINE 1 MG/DL (0.0-1.0)
[2018-01-18 09:42] LABS: COLOR,URINE YELLOW
[2018-01-18] MEDS ORDERED: Morphine Sulfate 4mg/ml Inj (IV USE ONLY) IVP ONE (09:45)
[2018-01-18 09:48] LABS: BASOPHILS % (AUTO) 1.1 % (0.0-2.0); EOSINOPHILS % (AUTO) 2.3 % (0.0-3.0); HEMATOCRIT 40.2 % (37.0-47.0); HEMOGLOBIN 12.7 G/DL (12.0-16.0); LYMPHOCYTES % (AUTO) 22.7 % (20.0-45.0); MEAN CORPUSCULAR VOLUME 84 FL (80-99); MONOCYTES % (AUTO) 8.2 % (1.0-10.0); NEUTROPHILS % (AUTO) 65.7 % (45.0-75.0); PLATELET COUNT 166 K/UL (150-450); RED BLOOD COUNT 4.77 M/UL (4.20-5.40); RED CELL DISTRIBUTION WIDTH 14.6 % (11.6-14.8); WHITE BLOOD COUNT 4.7 K/UL (4.8-10.8)
[2018-01-18 09:50] LABS: ANION GAP 6 mmol/L (5-15); BLOOD UREA NITROGEN 21 mg/dL (7-18); CALCIUM 8.5 MG/DL (8.5-10.1); CARBON DIOXIDE 31 MMOL/L (21-32); CHLORIDE 106 MMOL/L (98-107); CREATININE 0.7 MG/DL (0.55-1.30); POTASSIUM 4.4 MMOL/L (3.5-5.1); SODIUM 142 MMOL/L (136-145)
[2018-01-18] MEDS ORDERED: Piperacillin/Tazobactam 3.375 GM in NS 110 ML IVPB ONE (10:00)
[2018-01-18 10:04] LABS: ALANINE AMINOTRANSFERASE 14 U/L (12-78); ALBUMIN 3.1 G/DL (3.4-5.0); ALBUMIN/GLOBULIN RATIO 0.7 (1.0-2.7); ALKALINE PHOSPHATASE 88 U/L (46-116); ASPARTATE AMINO TRANSFERASE 23 U/L (15-37); BILIRUBIN,TOTAL 0.5 MG/DL (0.2-1.0); CKMB < 0.5 NG/ML (0.0-3.6); CREATINE KINASE 56 U/L (26-308)
[2018-01-18 10:50] VITALS: BP 160/84
[2018-01-18] MEDS: Aspirin Baby 81mg ORAL SCH (11:15)
[2018-01-18 11:30] VITALS: BP 153/82
--- NOTE | 2018-01-18 12:00 | Diagnostic Imaging Report ---
Indication: Chest pain Comparison: 12/09/2017 A single view chest radiograph was obtained. Findings: There is enlargement of the cardiac silhouette with pulmonary vascular redistribution and prominence, hazy vessel margins and the suggestion of interstitial edema consistent with CHF. Bones are slightly osteopenic. IMPRESSION: Mild CHF
--- NOTE | 2018-01-18 12:10 | History and Physical ---
History of Present Illness General Date patient seen: Jan 18, 2018 Time patient seen: 11:30 Reason for Hospitalization: Vomiting Present Illness HPI 67 yo F PMH of MDR UTI, depression, HTN, schizophrenia, morbid obesity, venous stasis and chronic lymphedema presenting with complaints of chest pain, dysuria , and emesis. Patient is a poor historian given her psyche history. Per EMR patient was last admitted for urosepsis and LLE cellulitis and discharged with PO abx. Patient cannot comment is she completed an abx course or not. Patient states the chest pain is across her chest and lasts severel hours, , non radiating, non exertional, and worse on palpation. Patient also states that she has had many UTI's in the past and feels she has it again. Patient denies and fevers, chills, or CVA tenderness. Admits to suprapubic pain. Patient also admits to non bloody emesis x 1 week. Allergies: Coded Allergies: HALOPERIDOL (Verified Allergy, Unknown, 01/28/09) HALOPERIDOL LACTATE (Unverified Allergy, Unknown, 07/30/16) VANCOMYCIN (Unverified Adverse Reaction, Intermediate, Shortness of Breath , 06/26/13) Medication History Scheduled Aspirin* (Aspir-Low*), 81 MG ORAL DAILY, (Reported) Bimatoprost (Lumigan), 1 DROP BOTH EYES HS, (Reported) Carbamide Peroxide (Debrox), 3 DROP LEFT EAR THREE TIMES A DAY, (Reported) Cephalexin* (Keflex*), 500 MG ORAL FOUR TIMES A DAY, (Reported) Diltiazem Hcl* (Cardizem*), 60 MG ORAL EVERY 8 HOURS, (Reported) Divalproex Sodium* (Depakote*), 500 MG PO BID, (Reported) Docusate Sodium* (Colace*), 100 MG ORAL DAILY, (Reported) Escitalopram Oxalate (Escitalopram Oxalate*), 5 MG ORAL DAILY, (Reported) Estrogens Conjugated (Premarin), 42.5 GM VG HS, (Reported) Estrogens,Conjugated (Premarin), 0.3 MG ORAL DAILY, (Reported) Hydralazine Hcl* (Hydralazine Hcl*), 10 MG ORAL EVERY 6 HOURS, (Reported) Latanoprost/Pf (Latanoprost 0.005% Eye Drop), 1 DROP OP DAILY, (Reported) Magnesium Hydroxide* (Milk Of Magnesia*), 30 ML ORAL DAILY, (Reported) Meropenem (Meropenem), 1 GM IV Q8H Multivitamin With Minerals (Multivitamins With Minerals*), 1 TAB ORAL DAILY, ( Reported) Nitrofurantoin Monohyd/M-Cryst* (Macrobid 100 Mg*), 100 MG ORAL EVERY 12 HOURS, (Reported) Pantoprazole* (Protonix*), 40 MG ORAL DAILY, (Reported) Phenazopyridine Hcl* (Pyridium*), 200 MG ORAL THREE TIMES A DAY, (Reported) Polyethylene Glycol 3350* (Polyethylene Glycol 3350*), 17 GM ORAL DAILY, ( Reported) Trimethoprim/Sulfamethoxazole 160/800* (Bactrim Ds Tablet*), 1 TAB ORAL TWICE A DAY, (Reported) Scheduled PRN Acetaminophen* (Acetaminophen 325MG Tablet*), 325 MG ORAL Q4H PRN for Mild Pain/ Temp > 100.5, (Reported) Albuterol Sulfate* (Albuterol Sulfate Hhn*), 3 ML INH Q6H PRN for Shortness of Breath, (Reported) Hydrocodone Bit/Acetaminophen 5-325* ([place] 5-325 Tablet*), 1 TAB ORAL Q4H PRN for Severe Pain (Pain Scale 7-10), (Reported) Lorazepam* (Lorazepam*), 0.5 MG IM EVERY 6 HOURS PRN for For Anxiety, (Reported) Ondansetron Odt* (Zofran Odt*), 8 MG ORAL Q4HR PRN for Nausea & Vomiting, ( Reported) Patient History Limited by: other - schizophrenia History Provided By: Medical Record Healthcare decision maker Resuscitation status Full Code Advanced Directive on File Past Medical/Surgical History Past Medical/Surgical History: (1) Schizophrenia (2) Depression (3) Pyelonephritis (4) Sepsis (5) Chronic venous stasis (6) Lymphadema (7) Essential hypertension (8) Anemia (9) GERD (gastroesophageal reflux disease) (10) Infection due to ESBL-producing Escherichia coli Review of Systems All Other Systems: negative except mentioned in HPI Physical Exam General Appearance: no apparent distress, alert, confused, morbidly obese HEENT: normocephalic, atraumatic, anicteric, PERRL Neck: non-tender, normal alignment, supple, normal inspection Respiratory/Chest: lungs clear, normal breath sounds, no respiratory distress, other - patient notes chest pain reproducible on palpation Cardiovascular/Chest: normal peripheral pulses, normal rate, regular rhythm, regularly irregular, no gallop/murmur, no JVD Abdomen: normal bowel sounds, non tender, soft, no mass Extremities: other - chroic venous stasis in b/l l/e, no ischemic changes, left lower extremity redness, no increased warmth 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 Last 24 Hour Vital Signs Date Time Temp Pulse Resp B/P (MAP) Pulse Ox O2 Delivery O2 Flow Rate FiO2 01/18/18 10:50 97.0 61 14 160/84 95 Room Air 97.0 01/18/18 10:50 97.0 61 16 160/84 95 Room Air 207.9 01/18/18 09:50 97.7 01/18/18 08:51 97.7 79 16 134/107 95 Room Air 97.7 01/18/18 08:38 98.2 70 20 138/109 95 Room Air 98.2 Laboratory Tests Test 01/18/18 09:05 01/18/18 09:20 Urine Color Yellow Urine Appearance Turbid Urine pH 8 (4.5-8.0) Urine Specific [place] 1.010 (1.005-1.035) Urine Protein 2+ (NEGATIVE) H Urine Glucose (UA) Negative (NEGATIVE) Urine Ketones 1+ (NEGATIVE) H Urine Blood 2+ (NEGATIVE) H Urine Nitrite Positive (NEGATIVE) H Urine Bilirubin Negative (NEGATIVE) Urine Urobilinogen 1 MG/DL (0.0-1.0) H Urine Leukocyte Esterase 3+ (NEGATIVE) H Urine RBC 10-15 /HPF (0 - 2) H Urine WBC Tntc /HPF (0 - 2) H Urine Squamous Epithelial Cells Few /LPF (NONE/OCC) Urine Bacteria Many /HPF (NONE) H White Blood Count 4.7 K/UL (4.8-10.8) L Red Blood Count 4.77 M/UL (4.20-5.40) Hemoglobin 12.7 G/DL (12.0-16.0) Hematocrit 40.2 % (37.0-47.0) Mean Corpuscular Volume 84 FL (80-99) Mean Corpuscular Hemoglobin 26.6 PG (27.0-31.0) L Mean Corpuscular Hemoglobin Concent 31.6 G/DL (32.0-36.0) L Red Cell Distribution Width 14.6 % (11.6-14.8) Platelet Count 166 K/UL (150-450) Mean Platelet Volume 6.8 FL (6.5-10.1) Neutrophils (%) (Auto) 65.7 % (45.0-75.0) Lymphocytes (%) (Auto) 22.7 % (20.0-45.0) Monocytes (%) (Auto) 8.2 % (1.0-10.0) Eosinophils (%) (Auto) 2.3 % (0.0-3.0) Basophils (%) (Auto) 1.1 % (0.0-2.0) Sodium Level 142 MMOL/L (136-145) Potassium Level 4.4 MMOL/L (3.5-5.1) Chloride Level 106 MMOL/L (98-107) Carbon Dioxide Level 31 MMOL/L (21-32) Anion Gap 6 mmol/L (5-15) Blood Urea Nitrogen 21 mg/dL (7-18) H Creatinine 0.7 MG/DL (0.55-1.30) Estimat Glomerular Filtration Rate > 60 mL/min (>60) Glucose Level 103 MG/DL (74-106) Lactic Acid Level 1.40 mmol/L (0.4-2.0) Calcium Level 8.5 MG/DL (8.5-10.1) Total Bilirubin 0.5 MG/DL (0.2-1.0) Aspartate Amino Transf (AST/SGOT) 23 U/L (15-37) Alanine Aminotransferase (ALT/SGPT) 14 U/L (12-78) Alkaline Phosphatase 88 U/L (46-116) Total Creatine Kinase 56 U/L (26-308) Creatine Kinase MB < 0.5 NG/ML (0.0-3.6) Creatine Kinase MB Relative Index 0.8 Troponin I 0.012 ng/mL (0.000-0.056) Pro-B-Type Natriuretic Peptide 217 pg/mL (0-125) H Total Protein 7.5 G/DL (6.4-8.2) Albumin 3.1 G/DL (3.4-5.0) L Globulin 4.4 g/dL Albumin/Globulin Ratio 0.7 (1.0-2.7) L Height (Feet): 5 Height (Inches): 7.00 Weight (Pounds): 300 Medications Current Medications Medications (Trade) Dose Ordered Sig/Shiraz Route PRN Reason Start Time Stop Time Status Last Admin Dose Admin Acetaminophen (Tylenol) 650 mg Q4H PRN ORAL Mild Pain/Temp > 100.5 01/18/18 11:15 02/17/18 11:14 Aspirin (ASA) 81 mg DAILY ORAL 01/18/18 11:15 02/17/18 11:14 Atorvastatin Calcium (Lipitor) 40 mg BEDTIME ORAL 01/18/18 21:00 02/17/18 20:59 Dextrose (Dextrose 50%) 25 ml Q30M PRN IV Hypoglycemia 01/18/18 11:15 02/17/18 11:14 Dextrose (Dextrose 50%) 50 ml Q30M PRN IV Hypoglycemia 01/18/18 11:15 02/17/18 11:14 Diltiazem HCl (Cardizem) 60 mg EVERY 8 HOURS ORAL 01/18/18 14:00 02/17/18 13:59 Divalproex Sodium (Depakote) 500 mg EVERY 12 HOURS ORAL 01/18/18 21:00 02/17/18 20:59 Docusate Sodium (Colace) 200 mg BID ORAL 01/18/18 18:00 02/17/18 17:59 Escitalopram Oxalate (Lexapro) 10 mg DAILY ORAL 01/19/18 09:00 02/18/18 08:59 Meropenem 1 gm/ Sodium Chloride 55 ml @ 110 mls/hr Q8HR IVPB 01/18/18 14:00 01/23/18 13:59 Assessment/Plan Problem List: (1) Chest pain, atypical ICD Codes: R07.89 - Other chest pain SNOMED: 865160983 (2) UTI (urinary tract infection) ICD Codes: N39.0 - Urinary tract infection, site not specified SNOMED: 12910644 (3) Left leg cellulitis ICD Codes: L03.116 - Cellulitis of left lower limb SNOMED: 846716850 (4) Nausea ICD Codes: R11.0 - Nausea SNOMED: 333083405 (5) Schizophrenia ICD Codes: F20.9 - Schizophrenia, unspecified SNOMED: 03580352 (6) Depression ICD Codes: F32.9 - Major depressive disorder, single episode, unspecified SNOMED: 89021515 Assessment/Plan Atypical chest pain, reproducible on exam - serial troponins and ekgs - medical management - admit to tele - check FLP - Prior echo reviewed UTI with history of MDR and allergic to vancomycin - Merrem - ID consult LLE Cellulitis - Bactrim PO Depression and Schizophrenia - continued depakote and escitalopram per discharge records - check LFT's Morbid Obesity - education on diet modification and exercise Charis Woods DO Jan 18, 2018 12:10
[2018-01-18] MEDS: Bactrim-DS 1 tab ORAL SCH ×2 (12:15→17:00)
[2018-01-18] MEDS ORDERED: Morphine Sulfate 2mg/ml Inj IVP SCH (13:07)
[2018-01-18] MEDS: Meropenem 1 GM in NS 55 ML IVPB SCH ×2 (13:54→22:01)
[2018-01-18] MEDS: dilTIAZem HCl 60mg tab ORAL SCH ×2 (13:54→22:00)
[2018-01-18 16:00] VITALS: BP 169/97
[2018-01-18] MEDS: Docusate 100mg cap ORAL SCH (17:00)
[2018-01-18] MEDS ORDERED: Enalaprilat 2.5mg/2ml Inj IV PRN (17:00)
[2018-01-18] MEDS ORDERED: LORazepam Inj 2mg/ml 1ml IV PRN (17:00)
--- NOTE | 2018-01-18 17:20 | Infectious Diseases Prog Note ---
Assessment/Plan Assessment/Plan Full consult dictated: A) 1) uti 2) hx multi drug resistant uti 3) bilateral leg cellulitis - L > R 4) allergies - vancomycin 5) + N/V with bactrim P) 1) meropenem plus iv zyvox 2) check urine culture 3) monitor labs 4) watch clinically 5) thank you Subjective Allergies: Coded Allergies: HALOPERIDOL (Verified Allergy, Unknown, 01/28/09) HALOPERIDOL LACTATE (Unverified Allergy, Unknown, 07/30/16) VANCOMYCIN (Unverified Adverse Reaction, Intermediate, Shortness of Breath , 06/26/13) Objective Vital Signs Last 24 Hour Vital Signs Date Time Temp Pulse Resp B/P (MAP) Pulse Ox O2 Delivery O2 Flow Rate FiO2 01/18/18 16:00 66 01/18/18 16:00 96.4 84 17 169/97 (121) 96.4 01/18/18 12:52 Room Air 01/18/18 12:00 63 01/18/18 11:30 97.7 62 18 153/82 (105) 95 97.7 01/18/18 10:50 97.0 61 14 160/84 95 Room Air 97.0 01/18/18 10:50 97.0 61 16 160/84 95 Room Air 207.9 01/18/18 09:50 97.7 01/18/18 08:51 97.7 79 16 134/107 95 Room Air 97.7 01/18/18 08:38 98.2 70 20 138/109 95 Room Air 98.2 Height (Feet): 5 Height (Inches): 7.00 Weight (Pounds): 300 Laboratory Tests Test 01/18/18 09:05 01/18/18 09:20 01/18/18 15:25 Urine Color Yellow Urine Appearance Turbid Urine pH 8 (4.5-8.0) Urine Specific [place] 1.010 (1.005-1.035) Urine Protein 2+ (NEGATIVE) H Urine Glucose (UA) Negative (NEGATIVE) Urine Ketones 1+ (NEGATIVE) H Urine Blood 2+ (NEGATIVE) H Urine Nitrite Positive (NEGATIVE) H Urine Bilirubin Negative (NEGATIVE) Urine Urobilinogen 1 MG/DL (0.0-1.0) H Urine Leukocyte Esterase 3+ (NEGATIVE) H Urine RBC 10-15 /HPF (0 - 2) H Urine WBC Tntc /HPF (0 - 2) H Urine Squamous Epithelial Cells Few /LPF (NONE/OCC) Urine Bacteria Many /HPF (NONE) H White Blood Count 4.7 K/UL (4.8-10.8) L Red Blood Count 4.77 M/UL (4.20-5.40) Hemoglobin 12.7 G/DL (12.0-16.0) Hematocrit 40.2 % (37.0-47.0) Mean Corpuscular Volume 84 FL (80-99) Mean Corpuscular Hemoglobin 26.6 PG (27.0-31.0) L Mean Corpuscular Hemoglobin Concent 31.6 G/DL (32.0-36.0) L Red Cell Distribution Width 14.6 % (11.6-14.8) Platelet Count 166 K/UL (150-450) Mean Platelet Volume 6.8 FL (6.5-10.1) Neutrophils (%) (Auto) 65.7 % (45.0-75.0) Lymphocytes (%) (Auto) 22.7 % (20.0-45.0) Monocytes (%) (Auto) 8.2 % (1.0-10.0) Eosinophils (%) (Auto) 2.3 % (0.0-3.0) Basophils (%) (Auto) 1.1 % (0.0-2.0) Sodium Level 142 MMOL/L (136-145) Potassium Level 4.4 MMOL/L (3.5-5.1) Chloride Level 106 MMOL/L (98-107) Carbon Dioxide Level 31 MMOL/L (21-32) Anion Gap 6 mmol/L (5-15) Blood Urea Nitrogen 21 mg/dL (7-18) H Creatinine 0.7 MG/DL (0.55-1.30) Estimat Glomerular Filtration Rate > 60 mL/min (>60) Glucose Level 103 MG/DL (74-106) Lactic Acid Level 1.40 mmol/L (0.4-2.0) Calcium Level 8.5 MG/DL (8.5-10.1) Total Bilirubin 0.5 MG/DL (0.2-1.0) Aspartate Amino Transf (AST/SGOT) 23 U/L (15-37) Alanine Aminotransferase (ALT/SGPT) 14 U/L (12-78) Alkaline Phosphatase 88 U/L (46-116) Total Creatine Kinase 56 U/L (26-308) Creatine Kinase MB < 0.5 NG/ML (0.0-3.6) Creatine Kinase MB Relative Index 0.8 Troponin I 0.012 ng/mL (0.000-0.056) 0.000 ng/mL (0.000-0.056) Pro-B-Type Natriuretic Peptide 217 pg/mL (0-125) H Total Protein 7.5 G/DL (6.4-8.2) Albumin 3.1 G/DL (3.4-5.0) L Globulin 4.4 g/dL Albumin/Globulin Ratio 0.7 (1.0-2.7) L Valproic Acid (Depakene) Level 22 MCG/ML (50-100) L Current Medications Medications (Trade) Dose Ordered Sig/Shiraz Route PRN Reason Start Time Stop Time Status Last Admin Dose Admin Acetaminophen (Tylenol) 650 mg Q4H PRN ORAL Mild Pain/Temp > 100.5 01/18/18 11:15 02/17/18 11:14 Aspirin (ASA) 81 mg DAILY ORAL 01/18/18 11:15 02/17/18 11:14 Atorvastatin Calcium (Lipitor) 40 mg BEDTIME ORAL 01/18/18 21:00 02/17/18 20:59 Carvedilol (Coreg) 3.125 mg EVERY 12 HOURS ORAL 01/18/18 21:00 02/17/18 20:59 Dextrose (Dextrose 50%) 25 ml Q30M PRN IV Hypoglycemia 01/18/18 11:15 02/17/18 11:14 Dextrose (Dextrose 50%) 50 ml Q30M PRN IV Hypoglycemia 01/18/18 11:15 02/17/18 11:14 Diltiazem HCl (Cardizem) 60 mg EVERY 8 HOURS ORAL 01/18/18 14:00 02/17/18 13:59 Divalproex Sodium (Depakote) 500 mg EVERY 12 HOURS ORAL 01/18/18 21:00 02/17/18 20:59 Docusate Sodium (Colace) 200 mg BID ORAL 01/18/18 18:00 02/17/18 17:59 Enalaprilat (Vasotec) 1.5 mg Q6H PRN IV SBP>170 01/18/18 17:00 02/17/18 16:59 Lorazepam (Ativan 2mg/ml 1ml) 2 mg Q6H PRN IV For Anxiety 01/18/18 17:00 01/25/18 16:59 Meropenem 1 gm/ Sodium Chloride 55 ml @ 110 mls/hr Q8HR IVPB 01/18/18 14:00 01/23/18 13:59 01/18/18 13:54 Morphine Sulfate (Morphine Sulfate) 2 mg Q6H PRN IVP For Pain 01/18/18 17:00 01/25/18 16:59 Ondansetron HCl (Zofran) 4 mg Q4H PRN IVP Nausea & Vomiting 01/18/18 13:15 02/17/18 13:14 01/18/18 13:54 Aleisha Coronel MD Jan 18, 2018 17:20
--- NOTE | 2018-01-18 19:32 | Consultation ---
History of Present Illness General Date patient seen: Jan 18, 2018 Chief Complaint: Vomiting Present Illness HPI 67 yo F PMH of MDR UTI, depression, HTN, schizophrenia, morbid obesity, venous stasis and chronic lymphedema. the pt is irritable and was hostile toward the nurse today. the pt has decrease energy and med seeking behavior. the pt has poor insight. the pt has no si/hi. Allergies: Coded Allergies: HALOPERIDOL (Verified Allergy, Unknown, 01/28/09) HALOPERIDOL LACTATE (Unverified Allergy, Unknown, 07/30/16) VANCOMYCIN (Unverified Adverse Reaction, Intermediate, Shortness of Breath , 06/26/13) Medication History Scheduled Aspirin* (Aspir-Low*), 81 MG ORAL DAILY, (Reported) Bimatoprost (Lumigan), 1 DROP BOTH EYES HS, (Reported) Carbamide Peroxide (Debrox), 3 DROP LEFT EAR THREE TIMES A DAY, (Reported) Cephalexin* (Keflex*), 500 MG ORAL FOUR TIMES A DAY, (Reported) Diltiazem Hcl* (Cardizem*), 60 MG ORAL EVERY 8 HOURS, (Reported) Divalproex Sodium* (Depakote*), 500 MG PO BID, (Reported) Docusate Sodium* (Colace*), 100 MG ORAL DAILY, (Reported) Escitalopram Oxalate (Escitalopram Oxalate*), 5 MG ORAL DAILY, (Reported) Estrogens Conjugated (Premarin), 42.5 GM VG HS, (Reported) Estrogens,Conjugated (Premarin), 0.3 MG ORAL DAILY, (Reported) Hydralazine Hcl* (Hydralazine Hcl*), 10 MG ORAL EVERY 6 HOURS, (Reported) Latanoprost/Pf (Latanoprost 0.005% Eye Drop), 1 DROP OP DAILY, (Reported) Magnesium Hydroxide* (Milk Of Magnesia*), 30 ML ORAL DAILY, (Reported) Meropenem (Meropenem), 1 GM IV Q8H Multivitamin With Minerals (Multivitamins With Minerals*), 1 TAB ORAL DAILY, ( Reported) Nitrofurantoin Monohyd/M-Cryst* (Macrobid 100 Mg*), 100 MG ORAL EVERY 12 HOURS, (Reported) Pantoprazole* (Protonix*), 40 MG ORAL DAILY, (Reported) Phenazopyridine Hcl* (Pyridium*), 200 MG ORAL THREE TIMES A DAY, (Reported) Polyethylene Glycol 3350* (Polyethylene Glycol 3350*), 17 GM ORAL DAILY, ( Reported) Trimethoprim/Sulfamethoxazole 160/800* (Bactrim Ds Tablet*), 1 TAB ORAL TWICE A DAY, (Reported) Scheduled PRN Acetaminophen* (Acetaminophen 325MG Tablet*), 325 MG ORAL Q4H PRN for Mild Pain/ Temp > 100.5, (Reported) Albuterol Sulfate* (Albuterol Sulfate Hhn*), 3 ML INH Q6H PRN for Shortness of Breath, (Reported) Hydrocodone Bit/Acetaminophen 5-325* ([place] 5-325 Tablet*), 1 TAB ORAL Q4H PRN for Severe Pain (Pain Scale 7-10), (Reported) Lorazepam* (Lorazepam*), 0.5 MG IM EVERY 6 HOURS PRN for For Anxiety, (Reported) Ondansetron Odt* (Zofran Odt*), 8 MG ORAL Q4HR PRN for Nausea & Vomiting, ( Reported) Patient History Limited by: medical condition History Provided By: Patient, Medical Record, PMD Healthcare decision maker Resuscitation status Advanced Directive on File Past Medical/Surgical History Past Medical/Surgical History: (1) Lactic acidosis (2) Constipation (3) Onychomycosis (4) Emesis (5) Cough (6) Opiate dependence (7) Opiate dependence (8) Opiate dependence (9) Opiate dependence (10) Chest pain (11) Obesity (12) Chronic ulcer of leg (13) Chronic ulcer of leg (14) Smoker (15) Acute chest pain (16) Encounter for dressing change or suture removal (17) Acute encephalopathy (18) Encounter for wound re-check (19) Intractable nausea and vomiting (20) Change of dressing (21) Change of dressing (22) Change of dressing (23) Change of dressing (24) Change of dressing (25) Change of dressing (26) Change of dressing (27) ESBL urine (28) Lymphedema (29) Lymphedema (30) Lymphedema (31) Lymphedema (32) Lymphedema (33) Lymphedema (34) Lymphedema (35) Open wound of foot (36) Open wound of foot (37) cellulitis (38) chronic lymphedema (39) hypertension uncontrolled (40) hypertension uncontrolled (41) hypertension uncontrolled (42) hypertension uncontrolled (43) hypertension uncontrolled (44) tenia corpus (45) chronic lymphedema (46) chronic lymphedema (47) Lymphedema (48) Change of dressing (49) Tinea cruris (50) Lymphadema (51) Abdominal pain (52) Chronic ulcer of leg (53) Chest pain (54) Essential hypertension (55) Anemia (56) Depression (57) Pyelonephritis (58) Schizophrenia (59) Sepsis (60) GERD (gastroesophageal reflux disease) (61) Infection due to ESBL-producing Escherichia coli (62) Chronic venous stasis (63) Lymphadema (64) Nausea (65) Chest pain, atypical (66) Left leg cellulitis (67) Depression (68) Schizophrenia (69) UTI (urinary tract infection) (70) Nausea and vomiting (71) ACS (acute coronary syndrome) Review of Systems Psychiatric: Reports: prior hx, anxiety, depressed feelings, emotional problems , hallucinations Physical Exam General Appearance: alert, agitated, morbidly obese Neurologic: oriented x 3, responsive, depressed affect Last 24 Hour Vital Signs Date Time Temp Pulse Resp B/P (MAP) Pulse Ox O2 Delivery O2 Flow Rate FiO2 01/18/18 16:00 66 01/18/18 16:00 96.4 84 17 169/97 (121) 96.4 01/18/18 12:52 Room Air 01/18/18 12:00 63 01/18/18 11:30 97.7 62 18 153/82 (105) 95 97.7 01/18/18 10:50 97.0 61 14 160/84 95 Room Air 97.0 01/18/18 10:50 97.0 61 16 160/84 95 Room Air 207.9 01/18/18 09:50 97.7 01/18/18 08:51 97.7 79 16 134/107 95 Room Air 97.7 01/18/18 08:38 98.2 70 20 138/109 95 Room Air 98.2 Laboratory Tests Test 01/18/18 09:05 01/18/18 09:20 01/18/18 15:25 Urine Color Yellow Urine Appearance Turbid Urine pH 8 (4.5-8.0) Urine Specific [place] 1.010 (1.005-1.035) Urine Protein 2+ (NEGATIVE) H Urine Glucose (UA) Negative (NEGATIVE) Urine Ketones 1+ (NEGATIVE) H Urine Blood 2+ (NEGATIVE) H Urine Nitrite Positive (NEGATIVE) H Urine Bilirubin Negative (NEGATIVE) Urine Urobilinogen 1 MG/DL (0.0-1.0) H Urine Leukocyte Esterase 3+ (NEGATIVE) H Urine RBC 10-15 /HPF (0 - 2) H Urine WBC Tntc /HPF (0 - 2) H Urine Squamous Epithelial Cells Few /LPF (NONE/OCC) Urine Bacteria Many /HPF (NONE) H White Blood Count 4.7 K/UL (4.8-10.8) L Red Blood Count 4.77 M/UL (4.20-5.40) Hemoglobin 12.7 G/DL (12.0-16.0) Hematocrit 40.2 % (37.0-47.0) Mean Corpuscular Volume 84 FL (80-99) Mean Corpuscular Hemoglobin 26.6 PG (27.0-31.0) L Mean Corpuscular Hemoglobin Concent 31.6 G/DL (32.0-36.0) L Red Cell Distribution Width 14.6 % (11.6-14.8) Platelet Count 166 K/UL (150-450) Mean Platelet Volume 6.8 FL (6.5-10.1) Neutrophils (%) (Auto) 65.7 % (45.0-75.0) Lymphocytes (%) (Auto) 22.7 % (20.0-45.0) Monocytes (%) (Auto) 8.2 % (1.0-10.0) Eosinophils (%) (Auto) 2.3 % (0.0-3.0) Basophils (%) (Auto) 1.1 % (0.0-2.0) Sodium Level 142 MMOL/L (136-145) Potassium Level 4.4 MMOL/L (3.5-5.1) Chloride Level 106 MMOL/L (98-107) Carbon Dioxide Level 31 MMOL/L (21-32) Anion Gap 6 mmol/L (5-15) Blood Urea Nitrogen 21 mg/dL (7-18) H Creatinine 0.7 MG/DL (0.55-1.30) Estimat Glomerular Filtration Rate > 60 mL/min (>60) Glucose Level 103 MG/DL (74-106) Lactic Acid Level 1.40 mmol/L (0.4-2.0) Calcium Level 8.5 MG/DL (8.5-10.1) Total Bilirubin 0.5 MG/DL (0.2-1.0) Aspartate Amino Transf (AST/SGOT) 23 U/L (15-37) Alanine Aminotransferase (ALT/SGPT) 14 U/L (12-78) Alkaline Phosphatase 88 U/L (46-116) Total Creatine Kinase 56 U/L (26-308) Creatine Kinase MB < 0.5 NG/ML (0.0-3.6) Creatine Kinase MB Relative Index 0.8 Troponin I 0.012 ng/mL (0.000-0.056) 0.000 ng/mL (0.000-0.056) Pro-B-Type Natriuretic Peptide 217 pg/mL (0-125) H Total Protein 7.5 G/DL (6.4-8.2) Albumin 3.1 G/DL (3.4-5.0) L Globulin 4.4 g/dL Albumin/Globulin Ratio 0.7 (1.0-2.7) L Valproic Acid (Depakene) Level 22 MCG/ML (50-100) L Height (Feet): 5 Height (Inches): 7.00 Weight (Pounds): 300 Medications Current Medications Medications (Trade) Dose Ordered Sig/Shiraz Route PRN Reason Start Time Stop Time Status Last Admin Dose Admin Acetaminophen (Tylenol) 650 mg Q4H PRN ORAL Mild Pain/Temp > 100.5 01/18/18 11:15 02/17/18 11:14 Aspirin (ASA) 81 mg DAILY ORAL 01/18/18 11:15 02/17/18 11:14 Atorvastatin Calcium (Lipitor) 40 mg BEDTIME ORAL 01/18/18 21:00 02/17/18 20:59 Carvedilol (Coreg) 3.125 mg EVERY 12 HOURS ORAL 01/18/18 21:00 02/17/18 20:59 Dextrose (Dextrose 50%) 25 ml Q30M PRN IV Hypoglycemia 01/18/18 11:15 02/17/18 11:14 Dextrose (Dextrose 50%) 50 ml Q30M PRN IV Hypoglycemia 01/18/18 11:15 02/17/18 11:14 Diltiazem HCl (Cardizem) 60 mg EVERY 8 HOURS ORAL 01/18/18 14:00 02/17/18 13:59 Divalproex Sodium (Depakote) 500 mg EVERY 12 HOURS ORAL 01/18/18 21:00 02/17/18 20:59 Docusate Sodium (Colace) 200 mg BID ORAL 01/18/18 18:00 02/17/18 17:59 Enalaprilat (Vasotec) 1.5 mg Q6H PRN IV SBP>170 01/18/18 17:00 02/17/18 16:59 Heparin Sodium (Porcine) (Heparin 5000 units/ml) 5,000 units EVERY 12 HOURS SUBQ 01/18/18 21:00 02/17/18 20:59 Linezolid 300 ml @ 300 mls/hr EVERY 12 HOURS IVPB 01/18/18 21:00 01/25/18 20:59 Lorazepam (Ativan 2mg/ml 1ml) 2 mg Q6H PRN IV For Anxiety 01/18/18 17:00 01/25/18 16:59 Meropenem 1 gm/ Sodium Chloride 55 ml @ 110 mls/hr Q8HR IVPB 01/18/18 14:00 01/23/18 13:59 01/18/18 13:54 Morphine Sulfate (Morphine Sulfate) 2 mg Q6H PRN IVP For Pain 01/18/18 17:00 01/25/18 16:59 Ondansetron HCl (Zofran) 4 mg Q4H PRN IVP Nausea & Vomiting 01/18/18 13:15 02/17/18 13:14 01/18/18 13:54 Assessment/Plan Status: unchanged Assessment/Plan schizoaffective d/o morbid obesity agitation -Depakote 250mg bid -Risperdal 2mg qhs -dc Harris Villagran MD Jan 18, 2018 19:32
[2018-01-18 20:00] VITALS: BP 177/79
[2018-01-18] MEDS: Depakote 500mg tab ORAL SCH ×2 (20:41→21:00)
[2018-01-18] MEDS: Atorvastatin 20mg tab ORAL SCH ×2 (20:42→21:00)
[2018-01-18] MEDS: Heparin 5000 units/ml inj SUBQ SCH (20:43)
[2018-01-18] MEDS ORDERED: Vancomycin 1gm/D5W 275ml IVPB SCH ×2 (21:00)
[2018-01-18] MEDS: Morphine Sulfate 2mg/ml Inj IVP PRN (21:00)
--- NOTE | 2018-01-18 23:30 | Consultation ---
DATE OF CONSULTATION: 01/18/2018 INFECTIOUS DISEASE CONSULTATION CONSULTING PHYSICIAN: Aleisha Coronel M.D. ATTENDING PHYSICIAN: Ignacia Blackwood M.D. REFERRING PHYSICIAN: . REASON FOR ADMISSION: Possible acute coronary syndrome with chest pain. REASON FOR CONSULTATION: UTI and bilateral leg cellulitis left greater than right. HISTORY OF PRESENT ILLNESS: This is a 67-year-old female, who comes in to [facility] with chest pain and is being ruled out for myocardial infarction and coronary syndrome. The patient was noted to have positive urinalysis and history of multidrug resistant urinary tract infection in the past. The patient had a positive urinalysis and also bilateral leg cellulitis left greater than right. The patient has history of ESBL E. coli urinary tract infection in the past. The patient also has history of vancomycin resistant Enterococcus urinary tract infection. The patient had 3+ leukocyte esterase and too many to count white blood cells. The patient is currently on meropenem and Bactrim for the leg cellulitis, however, she is having nausea and vomiting with Bactrim. We will place the patient on meropenem and Zyvox. She is allergic to vancomycin. Urine culture is pending. MAR was noted. Orders were noted. Notes were reviewed. REVIEW OF SYSTEMS: CONSTITUTIONAL: The patient has generalized fatigue. No fever, chills, or night sweats. HEAD AND NECK: No head pain, neck pain. CARDIAC: She does have chest pain. GASTROINTESTINAL: No nausea, vomiting, or diarrhea. GENITOURINARY: She has dysuria, frequency. No CVA tenderness. PULMONARY: No congestion or short of breath. SKIN: No rash or itching. EXTREMITIES: She has leg pain. NEUROLOGIC: No seizures. PAST MEDICAL HISTORY: The patient's past medical history includes history of the following. She has a history of urinary tract infection that is history of ESBL and vancomycin-resistant Enterococcus. She has history of depression. She has history of hypertension, history of schizophrenia, morbid obesity, venous stasis, lymphedema, history of cellulitis of the legs, history of schizophrenia. As discussed, she is coming in for rule out acute coronary syndrome with history of chest pain also. Again, she also has depression, schizophrenia, hypertension, obesity, lymphedema, and venous stasis. No history of diabetes mentioned. She has history of gastroesophageal reflux disease also. She has history of chronic obstructive pulmonary disease, cardiac disease, again no history of diabetes. Other past medical history, she has history of anemia also, history of sepsis and pyelonephritis also. ALLERGIES: Include vancomycin, haloperidol. FAMILY HISTORY: Noncontributory. SOCIAL HISTORY: I believe is negative for smoking, alcohol, or drug use currently. MEDICATIONS: Upon reviewing the MAR, she is on the following medications. She is on Lipitor, Depakote, Coreg. She is on linezolid, Colace. She is on meropenem, Vasotec, Ativan, Cardizem, lorazepam, carvedilol, atorvastatin, Zofran, aspirin, and acetaminophen. Outside medications noted and reconciliated. PHYSICAL EXAMINATION: VITAL SIGNS: Temperature is 96.4, pulse rate 84, respirations 17, blood pressure 169/97, and saturation 95%. GENERAL: Alert, responsive, in no acute distress. Oriented x3. HEENT: Oral exam, no thrush. Eye exam, no icterus. Neck is supple. No JVD. Normocephalic. No thrush. Neck is supple. HEART: Regular. No obvious gallop or murmur. ABDOMEN: Soft. Positive bowel sounds. Nontender. LUNGS: Clear bilaterally. No rhonchi or rales. SKIN: No rash. MUSCULOSKELETAL: No evidence of septic arthritis. Lower extremity exam, she has bilateral leg edema, but also warmth and redness more on the left than right consistent with cellulitis. PERIPHERAL VASCULAR: No cyanosis or gangrene. GENITOURINARY: No CVA tenderness. No [place]. LINES: Line sites without phlebitis. NEUROLOGIC: Intact. Oriented x3. LABORATORY AND DIAGNOSTIC DATA: Laboratory data is as follows: Urinalysis had positive nitrite, 3+ leukocyte esterase, too many to count white blood cells, and many bacteria. Urine culture is pending. Creatinine is 0.7. LFTs noted. White count 4.7, hemoglobin 12.7, and platelet count 166,000. Cultures are pending. Imaging studies, chest x-ray showed congestive heart failure. ASSESSMENT AND PLAN: 1. The patient has likely complicated urinary tract infection significantly positive urinalysis consistent with urinary tract infection. She has history of ESBL and vancomycin-resistant Enterococcus. We will continue meropenem and Zyvox to cover Gram-negatives and also Gram-positive including vancomycin-resistant Enterococcus. Continue meropenem and Zyvox for urinary tract infection. Check urine culture. 2. Bilateral leg cellulitis. The patient is on Zyvox, which will cover Methicillin-resistant Staphylococcus aureus and Streptococcus pyogenes. Watch the patient clinically. She had nausea and vomiting . She is allergic to vancomycin. 3. The patient has a history of depression. 4. Schizophrenia. 5. Hyperlipidemia. 6. Obesity. 7. Venous stasis. 8. Hypertension. 9. Blood pressure treatment per primary. 10. Anemia. 11. No history of diabetes. 12. Gastroesophageal reflux disease. 13. Cardiac disease. 14. Chest pain, rule out myocardial infarction and coronary syndrome. 15. Past medical history as noted. 16. Allergies to haloperidol and vancomycin. 17. Social history is negative currently. 18. Family history is noncontributory. 19. MAR was noted. 20. Case was discussed with the RN. 21. Continue treatment per primary consultants. Aleisha Coronel M.D. DR: DELANO JOB#: [id number] CC:
[2018-01-19] VITALS: BP 141/76
[2018-01-19] MEDS: Morphine Sulfate 2mg/ml Inj IVP PRN ×2 (02:53→09:02)
[2018-01-19 05:00] VITALS: BP 113/67
[2018-01-19] MEDS: Meropenem 1 GM in NS 55 ML IVPB SCH ×3 (05:37→22:57)
[2018-01-19] MEDS: dilTIAZem HCl 60mg tab ORAL SCH ×3 (05:48→21:23)
[2018-01-19 08:00] VITALS: BP 149/76
[2018-01-19] MEDS: Docusate 100mg cap ORAL SCH ×2 (09:01→17:56)
[2018-01-19] MEDS: Aspirin Baby 81mg ORAL SCH (09:01)
[2018-01-19] MEDS: Depakote 500mg tab ORAL SCH ×2 (09:01→21:20)
[2018-01-19] MEDS: Heparin 5000 units/ml inj SUBQ SCH ×2 (09:02→21:19)
--- NOTE | 2018-01-19 10:49 | General Progress Note ---
Assessment/Plan Problem List: (1) UTI (urinary tract infection) ICD Codes: N39.0 - Urinary tract infection, site not specified SNOMED: 71857280 Qualifiers: Qualified Codes: N39.0 - Urinary tract infection, site not specified (2) Chest pain, atypical ICD Codes: R07.89 - Other chest pain SNOMED: 633611673 (3) Left leg cellulitis ICD Codes: L03.116 - Cellulitis of left lower limb SNOMED: 252837044 (4) Nausea ICD Codes: R11.0 - Nausea SNOMED: 447080219 (5) Schizophrenia ICD Codes: F20.9 - Schizophrenia, unspecified SNOMED: 98500484 (6) Depression ICD Codes: F32.9 - Major depressive disorder, single episode, unspecified SNOMED: 55091649 Assessment/Plan UTI with history of MDR and allergic to vancomycin, and LLE Cellulitis - Merrem, and zyvox - f/u urine cultures - appreciate ID consult Atypical chest pain, reproducible on exam - resolved - serial troponins and ekgs negative Depression and Schizophrenia - d/c escitalopram per psyche - appreciate psyche reqs Morbid Obesity - education on diet modification and exercise Dispo - SNF Subjective Date patient seen: Jan 19, 2018 Time patient seen: 09:00 ROS Limited/Unobtainable: Yes Allergies: Coded Allergies: HALOPERIDOL (Verified Allergy, Unknown, 01/28/09) HALOPERIDOL LACTATE (Unverified Allergy, Unknown, 07/30/16) VANCOMYCIN (Unverified Adverse Reaction, Intermediate, Shortness of Breath , 06/26/13) Subjective patient is confused and has psyche history, unable to get accurate ROS Objective Last 24 Hour Vital Signs Date Time Temp Pulse Resp B/P (MAP) Pulse Ox O2 Delivery O2 Flow Rate FiO2 01/19/18 09:07 63 149/76 01/19/18 09:00 Room Air 01/19/18 08:00 97.7 63 20 149/76 (100) 95 97.7 01/19/18 05:48 64 113/67 01/19/18 05:00 97.7 63 20 113/67 (82) 93 97.7 01/19/18 01:22 98.1 01/19/18 00:00 69 01/19/18 00:00 98.1 74 18 141/76 (97) 95 98.1 01/18/18 21:01 177/79 01/18/18 21:00 Nasal Cannula 3.0 01/18/18 20:00 75 18 177/79 (111) 95 01/18/18 20:00 73 01/18/18 16:00 66 01/18/18 16:00 96.4 84 17 169/97 (121) 96.4 01/18/18 12:52 Room Air 01/18/18 12:00 63 01/18/18 11:30 97.7 62 18 153/82 (105) 95 97.7 01/18/18 10:50 97.0 61 14 160/84 95 Room Air 97.0 01/18/18 10:50 97.0 61 16 160/84 95 Room Air 207.9 Intake and Output 01/18/18 01/19/18 19:00 07:00 Intake Total 295 ml 530 ml Output Total 30 ml Balance 265 ml 530 ml Intake Oral 240 ml 120 ml IV Total 55 ml 410 ml Output Urine Total 30 ml # Voids 1 1 Laboratory Tests 01/18/18 15:25: Troponin I 0.000 Height (Feet): 5 Height (Inches): 7.00 Weight (Pounds): 300 General Appearance: no apparent distress, alert, morbidly obese EENT: PERRL/EOMI, normal ENT inspection, TMs normal, pharynx normal Neck: non-tender, normal alignment, supple, normal inspection Cardiovascular: normal peripheral pulses, normal rate, regular rhythm, regularly irregular, no gallop/murmur, no JVD Respiratory/Chest: lungs clear, normal breath sounds, no respiratory distress, no accessory muscle use, respiratory distress Abdomen: non tender, soft, no organomegaly, no mass Extremities: other - erythema on LLE, severe lymphedema B/L LE Edema: 3+ Arm (L), 3+ Arm (R), 3+ Leg (L), 3+ Leg (R), 3+ Pedal (L), 3+ Pedal ( R), 3+ Generalized Edema: severe edema Neurologic: health spa manager II-XII grossly normal, oriented x 3, responsive Skin: warm/dry ChuckCharis DO Jan 19, 2018 10:49
[2018-01-19] MEDS ORDERED: HYDROcodone/Acetamin 10/325 tab ORAL PRN (11:00)
[2018-01-19] MEDS ORDERED: Norco 5mg/325mg tab ORAL PRN ×2 (11:00→17:03)
--- NOTE | 2018-01-19 11:08 | Consultation ---
Consult Note Consult Note DATE OF CONSULTATION: 01/19/2018 HEMATOLOGY-ONCOLOGY CONSULTATION REFERRING PHYSICIAN: Ignacia Blackwood M.D., Chuck Vizcaino REASON FOR CONSULTATION: Evaluation of leukopenia HISTORY OF PRESENT ILLNESS: 67y/o female with pmh of HTN, depression, schizophrenia, venous stasis, and chronic lymphedema with cellulitis of the lower extremities Left worse than right. Recently here end of November 2017. Pt is a current SNF resident. Also reports subjective fevers and nausea w/ nb/nb emesis x 1. Denies chest pain, SOB , d/c, dizziness. States that she has a "kidney infection". Pt also notes worsening left leg swelling w/ some redness. In ED, pt found to have a UTI. She was given ceftriaxone. I have been consulted for the evaluation and management of leukopenia. Pt with a current WBC of 4.0 and is on abx. hx of esbl uti PAST MEDICAL HISTORY: HTN, Depression, Schizophrenia, Obesity, Chronic venous stasis, Chronic lymphedema PAST SURGICAL HISTORY: Unknown FAMILY HISTORY: Denies SOCIAL HISTORY: Resides in SNF currently. Pt states she smokes a few cig/wk.Denies alcohol and drug use Allergies: HALOPERIDOL , HALOPERIDOL LACTATE, VANCOMYCIN Medication History Scheduled Aspirin* (Aspir-Low*), 81 MG ORAL DAILY, (Reported) Bimatoprost (Lumigan), 1 DROP BOTH EYES HS, (Reported) Carbamide Peroxide (Debrox), 3 DROP LEFT EAR THREE TIMES A DAY, (Reported) Diltiazem Hcl* (Cardizem*), 60 MG ORAL EVERY 8 HOURS, (Reported) Divalproex Sodium* (Depakote*), 500 MG PO BID, (Reported) Docusate Sodium* (Colace*), 100 MG ORAL DAILY, (Reported) Escitalopram Oxalate (Escitalopram Oxalate*), 5 MG ORAL DAILY, (Reported) Estrogens Conjugated (Premarin), 42.5 GM VG HS, (Reported) Estrogens,Conjugated (Premarin), 0.3 MG ORAL DAILY, (Reported) Hydralazine Hcl* (Hydralazine Hcl*), 10 MG ORAL EVERY 6 HOURS, (Reported) Latanoprost/Pf (Latanoprost 0.005% Eye Drop), 1 DROP OP DAILY, (Reported) Magnesium Hydroxide* (Milk Of Magnesia*), 30 ML ORAL DAILY, (Reported) Meropenem (Meropenem), 1 GM IV Q8H Multivitamin With Minerals (Multivitamins With Minerals*), 1 TAB ORAL DAILY, ( Reported) Phenazopyridine Hcl* (Pyridium*), 200 MG ORAL THREE TIMES A DAY, (Reported) Polyethylene Glycol 3350* (Polyethylene Glycol 3350*), 17 GM ORAL DAILY, ( Reported) Scheduled PRN Acetaminophen* (Acetaminophen 325MG Tablet*), 325 MG ORAL Q4H PRN for Mild Pain/ Temp > 100.5, (Reported) Albuterol Sulfate* (Albuterol Sulfate Hhn*), 3 ML INH Q6H PRN for Shortness of Breath, (Reported) Hydrocodone Bit/Acetaminophen 5-325* ([place] 5-325 Tablet*), 1 TAB ORAL Q4H PRN for Severe Pain (Pain Scale 7-10), (Reported) Lorazepam* (Lorazepam*), 0.5 MG IM EVERY 12 HOURS PRN for For Anxiety, (Reported ) Patient History History Provided By: Patient, Medical Record Healthcare decision maker Resuscitation status Do Not Resuscitate Advanced Directive on File Review of Systems Constitutional: Reports: fever Eye: Reports: no symptoms ENT: Reports: no symptoms Respiratory: Reports: no symptoms Cardiovascular: Reports: edema Gastrointestinal: Reports: nausea, vomiting Genitourinary: Reports: dysuria, pain Musculoskeletal: Reports: no symptoms Skin: Reports: no symptoms Psychiatric: Reports: no symptoms Neurological: Reports: no symptoms Endocrine: Reports: no symptoms Hematologic/Lymphatic: Reports: no symptoms Physical Exam Physical Exam Narrative General: alert, cooperative, no distress, Head: normocephalic, without obvious abnormality, atraumatic Eyes: conjunctivae/corneas clear. PERRL, EOM's intact Throat: lips, mucosa, and tongue normal. MMM Neck: supple, symmetrical, trachea midline, and no JVD Lungs: clear to auscultation bilaterally Heart: regular rate and rhythm, S1, S2 normal, no murmur, click, rub or gallop Abdomen: soft, non-tender, non-distended, bowel sounds normal; no masses or organomegaly : +suprapubic TTP, no CVAT Extremities: extremities normal, atraumatic, no cyanosis or edema Pulses: 2+ and symmetric Skin: L>R LLE edema with cellulitis, +chronic venous stasis changes, + area of erythema on LLE Neurologic: grossly normal, no focal deficits Laboratory Tests Test 01/18/18 15:25 Troponin I 0.000 ng/mL (0.000-0.056) Assessment/Plan: # Leukopenia. Wbc of 4 upon admission. Is likely related to HEPATITIS C, also likely related to uti/lower ext cellulitis, currently in the 4-5k range --> Monitor wbc count and administer Neupogen as needed or d/c certain med --> HIV is negative for infection --> US of the abdomen has been RE-ordered --> On abx as per ID service, appreciate recs # Coagulopathy with nml PT/INR --> vit K on prn basis --> ffp if inr gets any worse # Anemia, mild. Obtain w/u if Hgb drops below 10. --> Current Hgb improved # Sepsis. --> on abx as per ID service # Lactic Acidosis. Trend lactate. as per primary --> s/p abx # Left Leg Cellulitis. Doxcycline added for coverage of LLE cellulitis. --> Wound care. # UTI. on abx I GREATLY APPRECIATE CONSULTATION. Yao Aden MD Jan 19, 2018 11:08
[2018-01-19 12:00] VITALS: BP 139/72
[2018-01-19 14:30] LABS: BASOPHILS % (AUTO) 0.6 % (0.0-2.0); HEMATOCRIT 38.7 % (37.0-47.0); HEMOGLOBIN 12.1 G/DL (12.0-16.0); LYMPHOCYTES % (AUTO) 26.9 % (20.0-45.0); MEAN CORPUSCULAR VOLUME 83 FL (80-99); MONOCYTES % (AUTO) 11.5 % (1.0-10.0); NEUTROPHILS % (AUTO) 58.9 % (45.0-75.0); PLATELET COUNT 164 K/UL (150-450); RED BLOOD COUNT 4.65 M/UL (4.20-5.40); RED CELL DISTRIBUTION WIDTH 14.8 % (11.6-14.8); WHITE BLOOD COUNT 4.6 K/UL (4.8-10.8)
[2018-01-19 14:49] LABS: ANION GAP 7 mmol/L (5-15); BLOOD UREA NITROGEN 24 mg/dL (7-18); CALCIUM 8.1 MG/DL (8.5-10.1); CARBON DIOXIDE 29 MMOL/L (21-32); CHLORIDE 106 MMOL/L (98-107); CHOLESTEROL 154 MG/DL (< 200); CREATININE 1.1 MG/DL (0.55-1.30); HDL CHOLESTEROL 45 MG/DL (40-60); POTASSIUM 3.9 MMOL/L (3.5-5.1); SODIUM 142 MMOL/L (136-145); TRIGLYCERIDES 185 MG/DL (30-150)
[2018-01-19 16:00] VITALS: BP 131/59
[2018-01-19] MEDS ORDERED: Enalaprilat 2.5mg/2ml Inj IV PRN (17:00)
[2018-01-19] MEDS ORDERED: LORazepam Inj 2mg/ml 1ml IV PRN (17:03)
[2018-01-19 21:00] VITALS: BP 154/74
[2018-01-19] MEDS ORDERED: Atorvastatin 20mg tab ORAL SCH (21:00)
[2018-01-19] MEDS: HYDROcodone/Acetamin 10/325 tab ORAL PRN (21:21)
[2018-01-20 04:00] VITALS: BP 170/74
[2018-01-20] MEDS: HYDROcodone/Acetamin 10/325 tab ORAL PRN ×4 (04:24→18:13)
[2018-01-20] MEDS: dilTIAZem HCl 60mg tab ORAL SCH ×2 (04:25→13:49)
[2018-01-20] MEDS: Meropenem 1 GM in NS 55 ML IVPB SCH ×3 (05:42→22:10)
--- NOTE | 2018-01-20 08:00 | General Progress Note ---
Assessment/Plan Assessment/Plan Assessment/Plan: # Leukopenia. Wbc of 4 upon admission. Is likely related to HEPATITIS C, also likely related to uti/lower ext cellulitis, currently in the 4-5k range --> Monitor wbc count and administer Neupogen as needed or d/c certain med --> HIV is negative for infection --> US of the abdomen has been RE-ordered, pending results --> On abx as per ID service, appreciate recs # Coagulopathy with nml PT/INR --> vit K on prn basis --> ffp if inr gets any worse # Anemia, mild. Obtain w/u if Hgb drops below 10. --> Current Hgb improved # Sepsis. --> on abx as per ID service # Lactic Acidosis. Trend lactate. as per primary --> s/p abx # Left Leg Cellulitis. Doxcycline added for coverage of LLE cellulitis. --> Wound care. but refusing care # UTI. on abx I GREATLY APPRECIATE CONSULTATION. Subjective HEENT: Denies: no symptoms, eye pain, blurred vision, tearing, double vision, ear pain, ear discharge, nose pain, nose congestion, throat pain, throat swelling, mouth pain, mouth swelling, other Cardiovascular: Denies: no symptoms, chest pain, edema, irregular heart rate, lightheadedness, palpitations, syncope, other Respiratory: Denies: no symptoms, cough, orthopnea, shortness of breath, SOB with excertion, SOB at rest, sputum, stridor, wheezing, other Gastrointestinal/Abdominal: Denies: no symptoms, abdomen distended, abdominal pain, black stools, tarry stools, blood in stool, constipated, diarrhea, difficulty swallowing, nausea, poor appetite, poor fluid intake, rectal bleeding , vomiting, other Genitourinary: Denies: no symptoms, burning, discharge, frequency, flank pain, hematuria, incontinence, pain, urgency, other Neurologic/Psychiatric: Denies: no symptoms, anxiety, depressed, emotional problems, headache, numbness, paresthesia, pre-existing deficit, seizure, tingling, tremors, weakness, other Endocrine: Denies: no symptoms, excessive sweating, flushing, intolerance to cold, intolerance to heat, increased hunger, increased thirst, increased urine, unexplained weight gain, unexplained weight loss, other Hematologic/Lymphatic: Denies: no symptoms, anemia, easy bleeding, easy bruising, other Allergies: Coded Allergies: HALOPERIDOL (Verified Allergy, Unknown, 01/28/09) HALOPERIDOL LACTATE (Unverified Allergy, Unknown, 07/30/16) VANCOMYCIN (Unverified Adverse Reaction, Intermediate, Shortness of Breath , 06/26/13) Subjective left lower ext cellulitis noted++, refusing care, yelling at nuclear physician Objective Last 24 Hour Vital Signs Date Time Temp Pulse Resp B/P (MAP) Pulse Ox O2 Delivery O2 Flow Rate FiO2 01/20/18 04:25 63 170/74 01/20/18 04:00 96.6 63 18 170/74 (106) 92 96.6 01/19/18 21:23 59 159/74 01/19/18 21:00 97.9 18 154/74 (100) 97.9 01/19/18 21:00 59 159/74 01/19/18 20:26 Room Air 01/19/18 16:00 97.5 66 18 131/59 (83) 100 97.5 01/19/18 13:41 68 139/72 01/19/18 12:00 97.5 68 20 139/72 (94) 95 97.5 01/19/18 09:07 63 149/76 01/19/18 09:00 Room Air 01/19/18 08:00 97.7 63 20 149/76 (100) 95 97.7 Intake and Output 01/19/18 01/20/18 19:00 07:00 Intake Total 835 ml 1210 ml Balance 835 ml 1210 ml Intake Oral 480 ml 800 ml IV Total 355 ml 410 ml # Voids 2 Laboratory Tests 01/19/18 14:15: White Blood Count 4.6L, Red Blood Count 4.65, Hemoglobin 12.1, Hematocrit 38.7, Mean Corpuscular Volume 83, Mean Corpuscular Hemoglobin 26.1L, Mean Corpuscular Hemoglobin Concent 31.4L, Red Cell Distribution Width 14.8, Platelet Count 164, Mean Platelet Volume 6.0L, Neutrophils (%) (Auto) 58.9, Lymphocytes (%) (Auto) 26.9, Monocytes (%) (Auto) 11.5H, Eosinophils (%) (Auto) 2.0, Basophils (%) ( Auto) 0.6, Sodium Level 142, Potassium Level 3.9, Chloride Level 106, Carbon Dioxide Level 29, Anion Gap 7, Blood Urea Nitrogen 24H, Creatinine 1.1#, Estimat Glomerular Filtration Rate 49.9, Glucose Level 106, Hemoglobin A1c 5.3, Calcium Level 8.1L, Magnesium Level 2.0, Troponin I 0.005, Triglycerides Level 185H, Cholesterol Level 154, LDL Cholesterol 72, HDL Cholesterol 45, Cholesterol /HDL Ratio 3.4 Height (Feet): 5 Height (Inches): 7.00 Weight (Pounds): 300 General Appearance: lethargic EENT: TMs normal Neck: supple Cardiovascular: no gallop/murmur Respiratory/Chest: no respiratory distress Abdomen: soft Extremities: non-tender Edema: 1+ Arm (L), 1+ Arm (R), 1+ Leg (L), 1+ Leg (R), 1+ Pedal (L) Neurologic: alert Skin: warm/dry Objective left lower ext >rle Yao Aden MD Jan 20, 2018 08:00
[2018-01-20] MEDS ORDERED: Aspirin Baby 81mg ORAL SCH (09:00)
[2018-01-20] MEDS: Docusate 100mg cap ORAL SCH ×2 (09:31→18:00)
[2018-01-20] MEDS: Depakote 500mg tab ORAL SCH ×2 (09:31→20:30)
[2018-01-20] MEDS: Heparin 5000 units/ml inj SUBQ SCH ×2 (09:39→21:00)
[2018-01-20 10:20] LABS: BASOPHILS % (AUTO) 0.6 % (0.0-2.0); EOSINOPHILS % (AUTO) 3.5 % (0.0-3.0); HEMATOCRIT 38.7 % (37.0-47.0); HEMOGLOBIN 11.9 G/DL (12.0-16.0); LYMPHOCYTES % (AUTO) 34.2 % (20.0-45.0); MEAN CORPUSCULAR VOLUME 83 FL (80-99); MONOCYTES % (AUTO) 10.4 % (1.0-10.0); NEUTROPHILS % (AUTO) 51.3 % (45.0-75.0); PLATELET COUNT 148 K/UL (150-450); RED BLOOD COUNT 4.67 M/UL (4.20-5.40); RED CELL DISTRIBUTION WIDTH 14.7 % (11.6-14.8)
[2018-01-20 10:28] LABS: ANION GAP 4 mmol/L (5-15); BLOOD UREA NITROGEN 22 mg/dL (7-18); CALCIUM 8.3 MG/DL (8.5-10.1); CARBON DIOXIDE 33 MMOL/L (21-32); CHLORIDE 106 MMOL/L (98-107); CREATININE 0.9 MG/DL (0.55-1.30); POTASSIUM 3.7 MMOL/L (3.5-5.1); SODIUM 143 MMOL/L (136-145)
--- NOTE | 2018-01-20 11:11 | General Progress Note ---
Assessment/Plan Problem List: (1) UTI (urinary tract infection) ICD Codes: N39.0 - Urinary tract infection, site not specified SNOMED: 41075829 Qualifiers: Qualified Codes: N39.0 - Urinary tract infection, site not specified (2) Chest pain, atypical ICD Codes: R07.89 - Other chest pain SNOMED: 577468401 (3) Left leg cellulitis ICD Codes: L03.116 - Cellulitis of left lower limb SNOMED: 187759868 (4) Nausea ICD Codes: R11.0 - Nausea SNOMED: 368111122 (5) Schizophrenia ICD Codes: F20.9 - Schizophrenia, unspecified SNOMED: 35818777 (6) Depression ICD Codes: F32.9 - Major depressive disorder, single episode, unspecified SNOMED: 47566878 Assessment/Plan UTI with history of MDR and allergic to vancomycin, and LLE Cellulitis - Merrem, and zyvox - f/u urine cultures, will de-escalate when available - appreciate ID consult Atypical chest pain, reproducible on exam - resolved - serial troponins and ekgs negative Depression and Schizophrenia - d/c escitalopram per psyche - appreciate psyche reqs Morbid Obesity - education on diet modification and exercise Dispo - [facility] - Subjective Date patient seen: Jan 20, 2018 Time patient seen: 09:00 Allergies: Coded Allergies: HALOPERIDOL (Verified Allergy, Unknown, 01/28/09) HALOPERIDOL LACTATE (Unverified Allergy, Unknown, 07/30/16) VANCOMYCIN (Unverified Adverse Reaction, Intermediate, Shortness of Breath , 06/26/13) Subjective no acute overnight events Objective Last 24 Hour Vital Signs Date Time Temp Pulse Resp B/P (MAP) Pulse Ox O2 Delivery O2 Flow Rate FiO2 01/20/18 09:31 63 170/74 01/20/18 09:30 63 170/74 01/20/18 09:00 Room Air 01/20/18 04:25 63 170/74 01/20/18 04:00 96.6 63 18 170/74 (106) 92 96.6 01/19/18 21:23 59 159/74 01/19/18 21:00 97.9 18 154/74 (100) 97.9 01/19/18 21:00 59 159/74 01/19/18 20:26 Room Air 01/19/18 16:00 97.5 66 18 131/59 (83) 100 97.5 01/19/18 13:41 68 139/72 01/19/18 12:00 97.5 68 20 139/72 (94) 95 97.5 Intake and Output 01/19/18 01/20/18 19:00 07:00 Intake Total 835 ml 1210 ml Balance 835 ml 1210 ml Intake Oral 480 ml 800 ml IV Total 355 ml 410 ml # Voids 2 Laboratory Tests 01/19/18 14:15: White Blood Count 4.6L, Red Blood Count 4.65, Hemoglobin 12.1, Hematocrit 38.7, Mean Corpuscular Volume 83, Mean Corpuscular Hemoglobin 26.1L, Mean Corpuscular Hemoglobin Concent 31.4L, Red Cell Distribution Width 14.8, Platelet Count 164, Mean Platelet Volume 6.0L, Neutrophils (%) (Auto) 58.9, Lymphocytes (%) (Auto) 26.9, Monocytes (%) (Auto) 11.5H, Eosinophils (%) (Auto) 2.0, Basophils (%) ( Auto) 0.6, Sodium Level 142, Potassium Level 3.9, Chloride Level 106, Carbon Dioxide Level 29, Anion Gap 7, Blood Urea Nitrogen 24H, Creatinine 1.1#, Estimat Glomerular Filtration Rate 49.9, Glucose Level 106, Hemoglobin A1c 5.3, Calcium Level 8.1L, Magnesium Level 2.0, Troponin I 0.005, Triglycerides Level 185H, Cholesterol Level 154, LDL Cholesterol 72, HDL Cholesterol 45, Cholesterol /HDL Ratio 3.4 01/20/18 09:45: White Blood Count 4.0L, Red Blood Count 4.67, Hemoglobin 11.9L, Hematocrit 38.7 , Mean Corpuscular Volume 83, Mean Corpuscular Hemoglobin 25.5L, Mean Corpuscular Hemoglobin Concent 30.8L, Red Cell Distribution Width 14.7, Platelet Count 148L, Mean Platelet Volume 6.9, Neutrophils (%) (Auto) 51.3, Lymphocytes (%) (Auto) 34.2, Monocytes (%) (Auto) 10.4H, Eosinophils (%) (Auto) 3.5H, Basophils (%) (Auto) 0.6, Sodium Level 143, Potassium Level 3.7, Chloride Level 106, Carbon Dioxide Level 33H, Anion Gap 4L, Blood Urea Nitrogen 22H, Creatinine 0.9, Estimat Glomerular Filtration Rate > 60, Glucose Level 144H, Calcium Level 8.3L, Magnesium Level 2.1, Troponin I 0.000, Phosphorus Level 3.0 Height (Feet): 5 Height (Inches): 7.00 Weight (Pounds): 300 General Appearance: alert, confused, morbidly obese EENT: PERRL/EOMI, normal ENT inspection, TMs normal Neck: non-tender, normal alignment, supple, normal inspection Cardiovascular: normal rate, regular rhythm, regularly irregular, no gallop/ murmur, no JVD Respiratory/Chest: lungs clear, normal breath sounds, no respiratory distress, no accessory muscle use Abdomen: normal bowel sounds, non tender, soft Extremities: other - lymphedema' + erythema left LE Edema: severe edema Skin: normal pigmentation, warm/dry Charis Woods DO Jan 20, 2018 11:11
[2018-01-20 13:06] VITALS: BP 153/74
--- NOTE | 2018-01-20 14:42 | General Progress Note ---
Assessment/Plan Status: stable Assessment/Plan schizoaffective d/o morbid obesity agitation -Depakote 250mg bid -Risperdal 2mg qhs -provided ro/st Subjective Date patient seen: Jan 20, 2018 Neurologic/Psychiatric: Reports: anxiety, depressed, emotional problems Allergies: Coded Allergies: HALOPERIDOL (Verified Allergy, Unknown, 01/28/09) HALOPERIDOL LACTATE (Unverified Allergy, Unknown, 07/30/16) VANCOMYCIN (Unverified Adverse Reaction, Intermediate, Shortness of Breath , 06/26/13) Subjective the pt has med seeking behavior Objective Last 24 Hour Vital Signs Date Time Temp Pulse Resp B/P (MAP) Pulse Ox O2 Delivery O2 Flow Rate FiO2 01/20/18 13:49 64 153/74 01/20/18 13:06 64 18 153/74 (100) 01/20/18 09:31 63 170/74 01/20/18 09:30 63 170/74 01/20/18 09:00 Room Air 01/20/18 04:25 63 170/74 01/20/18 04:00 96.6 63 18 170/74 (106) 92 96.6 01/19/18 21:23 59 159/74 01/19/18 21:00 97.9 18 154/74 (100) 97.9 01/19/18 21:00 59 159/74 01/19/18 20:26 Room Air 01/19/18 16:00 97.5 66 18 131/59 (83) 100 97.5 Intake and Output 01/19/18 01/20/18 19:00 07:00 Intake Total 835 ml 1210 ml Balance 835 ml 1210 ml Intake Oral 480 ml 800 ml IV Total 355 ml 410 ml # Voids 2 Laboratory Tests 01/20/18 09:45: White Blood Count 4.0L, Red Blood Count 4.67, Hemoglobin 11.9L, Hematocrit 38.7 , Mean Corpuscular Volume 83, Mean Corpuscular Hemoglobin 25.5L, Mean Corpuscular Hemoglobin Concent 30.8L, Red Cell Distribution Width 14.7, Platelet Count 148L, Mean Platelet Volume 6.9, Neutrophils (%) (Auto) 51.3, Lymphocytes (%) (Auto) 34.2, Monocytes (%) (Auto) 10.4H, Eosinophils (%) (Auto) 3.5H, Basophils (%) (Auto) 0.6, Sodium Level 143, Potassium Level 3.7, Chloride Level 106, Carbon Dioxide Level 33H, Anion Gap 4L, Blood Urea Nitrogen 22H, Creatinine 0.9, Estimat Glomerular Filtration Rate > 60, Glucose Level 144H, Calcium Level 8.3L, Phosphorus Level 3.0, Magnesium Level 2.1, Troponin I 0.000 Height (Feet): 5 Height (Inches): 7.00 Weight (Pounds): 300 General Appearance: alert Neurologic: oriented x 3, responsive, depressed affect Harris Ballesteros MD Jan 20, 2018 14:42
--- NOTE | 2018-01-20 14:43 | Psych Consult Progress Note ---
Psych Consult Progress Note Consult 01/19/18 the pt is the same NAD no si/hi no behavioral issues Vital Signs Last 24 Hour Vital Signs Date Time Temp Pulse Resp B/P (MAP) Pulse Ox O2 Delivery O2 Flow Rate FiO2 01/20/18 13:49 64 153/74 01/20/18 13:06 64 18 153/74 (100) 01/20/18 09:31 63 170/74 01/20/18 09:30 63 170/74 01/20/18 09:00 Room Air 01/20/18 04:25 63 170/74 01/20/18 04:00 96.6 63 18 170/74 (106) 92 96.6 01/19/18 21:23 59 159/74 01/19/18 21:00 97.9 18 154/74 (100) 97.9 01/19/18 21:00 59 159/74 01/19/18 20:26 Room Air 01/19/18 16:00 97.5 66 18 131/59 (83) 100 97.5 Labs Laboratory Tests Test 01/20/18 09:45 White Blood Count 4.0 K/UL (4.8-10.8) L Red Blood Count 4.67 M/UL (4.20-5.40) Hemoglobin 11.9 G/DL (12.0-16.0) L Hematocrit 38.7 % (37.0-47.0) Mean Corpuscular Volume 83 FL (80-99) Mean Corpuscular Hemoglobin 25.5 PG (27.0-31.0) L Mean Corpuscular Hemoglobin Concent 30.8 G/DL (32.0-36.0) L Red Cell Distribution Width 14.7 % (11.6-14.8) Platelet Count 148 K/UL (150-450) L Mean Platelet Volume 6.9 FL (6.5-10.1) Neutrophils (%) (Auto) 51.3 % (45.0-75.0) Lymphocytes (%) (Auto) 34.2 % (20.0-45.0) Monocytes (%) (Auto) 10.4 % (1.0-10.0) H Eosinophils (%) (Auto) 3.5 % (0.0-3.0) H Basophils (%) (Auto) 0.6 % (0.0-2.0) Sodium Level 143 MMOL/L (136-145) Potassium Level 3.7 MMOL/L (3.5-5.1) Chloride Level 106 MMOL/L (98-107) Carbon Dioxide Level 33 MMOL/L (21-32) H Anion Gap 4 mmol/L (5-15) L Blood Urea Nitrogen 22 mg/dL (7-18) H Creatinine 0.9 MG/DL (0.55-1.30) Estimat Glomerular Filtration Rate > 60 mL/min (>60) Glucose Level 144 MG/DL (74-106) H Calcium Level 8.3 MG/DL (8.5-10.1) L Phosphorus Level 3.0 MG/DL (2.5-4.9) Magnesium Level 2.1 MG/DL (1.8-2.4) Troponin I 0.000 ng/mL (0.000-0.056) Medications Current Medications Medications (Trade) Dose Ordered Sig/Shiraz Route PRN Reason Start Time Stop Time Status Last Admin Dose Admin Acetaminophen (Tylenol) 650 mg Q4H PRN ORAL Mild Pain/Temp > 100.5 01/19/18 17:01 02/17/18 17:00 Acetaminophen/ Hydrocodone Bitart ([place] 10/325) 1 tab Q4H PRN ORAL pain 7-10 01/19/18 17:03 01/26/18 17:02 01/20/18 13:49 Acetaminophen/ Hydrocodone Bitart ([place] 5/325) 1 tab Q4H PRN ORAL Moderate Pain (Pain Scale 4-6) 01/19/18 17:03 01/26/18 17:02 Amlodipine Besylate (Norvasc) 5 mg DAILY ORAL 01/20/18 09:00 02/19/18 08:59 01/20/18 09:30 Aspirin (ASA) 81 mg DAILY ORAL 01/20/18 09:00 02/17/18 11:14 01/20/18 09:30 Carvedilol (Coreg) 3.125 mg EVERY 12 HOURS ORAL 01/19/18 21:00 02/17/18 20:59 01/20/18 09:31 Dextrose (Dextrose 50%) 25 ml Q30M PRN IV Hypoglycemia 01/19/18 17:15 02/17/18 11:14 Dextrose (Dextrose 50%) 50 ml Q30M PRN IV Hypoglycemia 01/19/18 17:15 02/17/18 11:14 Diltiazem HCl (Cardizem) 60 mg EVERY 8 HOURS ORAL 01/19/18 22:00 02/17/18 13:59 01/20/18 13:49 Divalproex Sodium (Depakote) 500 mg EVERY 12 HOURS ORAL 01/19/18 21:00 02/17/18 20:59 01/20/18 09:31 Docusate Sodium (Colace) 200 mg BID ORAL 01/19/18 18:00 02/17/18 17:59 Enalaprilat (Vasotec) 1.5 mg Q6H PRN IV SBP>170 01/19/18 17:00 02/17/18 16:59 Heparin Sodium (Porcine) (Heparin 5000 units/ml) 5,000 units EVERY 12 HOURS SUBQ 01/19/18 21:00 02/17/18 20:59 01/20/18 09:39 Linezolid 300 ml @ 300 mls/hr EVERY 12 HOURS IVPB 01/19/18 21:00 01/25/18 20:59 01/20/18 09:31 Lorazepam (Ativan 2mg/ml 1ml) 2 mg Q6H PRN IV For Anxiety 01/19/18 17:03 01/25/18 17:02 Meropenem 1 gm/ Sodium Chloride 55 ml @ 110 mls/hr Q8HR IVPB 01/19/18 22:00 01/23/18 13:59 01/20/18 13:49 Ondansetron HCl (Zofran) 4 mg Q4H PRN IVP Nausea & Vomiting 01/19/18 17:15 02/17/18 13:14 01/20/18 13:49 Problems: (1) Schizophrenia Status: Chronic (2) Depression Status: Chronic (3) Opiate dependence Status: Chronic Assessment & Plan: schizoaffective d/o morbid obesity agitation -Depakote 250mg bid -Risperdal 2mg qhs -provided dorie/Harris Hector MD Jan 20, 2018 14:43
[2018-01-20 16:00] VITALS: BP 148/72
--- NOTE | 2018-01-20 16:24 | Infectious Diseases Prog Note ---
Assessment/Plan Assessment/Plan ASSESSMENT AND PLAN: 1. esbl e.coli uti, complicated uti - meropenem - day # 3 abx - plan on 10 day treatment course of antibiotic - can use invanz 1gm daily iv at [facility] if needed for completion of treatment 2. bilateral leg cellulitis - clinically improved - day # 3 zyvox - plan on 10 day treatment course of antibiotic - can us bactrim 1 ds tablet po bid at [facility] to finish treatment course of antibiotics 3. The patient has a history of depression. 4. Schizophrenia. 5. Hyperlipidemia. 6. Obesity. 7. Venous stasis. 8. Hypertension. 9. Blood pressure treatment per primary. 10. Anemia. 11. No history of diabetes. 12. Gastroesophageal reflux disease. 13. Cardiac disease. 14. Chest pain, rule out myocardial infarction and coronary syndrome. 15. Past medical history as noted. 16. Allergies to haloperidol and vancomycin. 17. Social history is negative currently. 18. Family history is noncontributory. 19. MAR was noted. 20. Case was discussed with the RN. 21. Continue treatment per primary consultants. Subjective Constitutional: Denies: fever HEENT: Denies: congestion Respiratory: Denies: shortness of breath Cardiovascular: Denies: chest pain Gastrointestinal/Abdominal: Denies: nausea, vomiting, diarrhea Genitourinary: Denies: dysuria, hematuria Neurologic: Denies: headache Psychiatric: Denies: depression Skin: Denies: rash Hematologic: Denies: bleeding Musculoskeletal: Denies: pain Allergies: Coded Allergies: HALOPERIDOL (Verified Allergy, Unknown, 01/28/09) HALOPERIDOL LACTATE (Unverified Allergy, Unknown, 07/30/16) VANCOMYCIN (Unverified Adverse Reaction, Intermediate, Shortness of Breath , 06/26/13) Objective Vital Signs Last 24 Hour Vital Signs Date Time Temp Pulse Resp B/P (MAP) Pulse Ox O2 Delivery O2 Flow Rate FiO2 01/20/18 13:49 64 153/74 01/20/18 13:06 64 18 153/74 (100) 01/20/18 09:31 63 170/74 01/20/18 09:30 63 170/74 01/20/18 09:00 Room Air 01/20/18 04:25 63 170/74 01/20/18 04:00 96.6 63 18 170/74 (106) 92 96.6 01/19/18 21:23 59 159/74 01/19/18 21:00 97.9 18 154/74 (100) 97.9 01/19/18 21:00 59 159/74 01/19/18 20:26 Room Air Height (Feet): 5 Height (Inches): 7.00 Weight (Pounds): 300 General Appearance: no acute distress HEENT: normocephalic, atraumatic, anicteric, mucous membranes moist Respiratory/Chest: lungs clear, normal breath sounds, no respiratory distress, no accessory muscle use Cardiovascular: normal rate, regular rhythm, no gallop/murmur, no JVD Abdomen: normal bowel sounds, soft, non tender, no organomegaly, non distended Genitourinary: other - no trivedi Extremities: no cyanosis, other - cellulitis improved Skin: no rash Neurologic/Psychiatric: copy operator II-XII grossly normal, alert, oriented x 3, responsive Lymphatic: no neck adenopathy Musculoskeletal: no effusion Objective Chest x-ray - A single view chest radiograph was obtained. Findings: There is enlargement of the cardiac silhouette with pulmonary vascular redistribution and prominence, hazy vessel margins and the suggestion of interstitial edema consistent with CHF. Bones are slightly osteopenic. IMPRESSION: Mild CHF Microbiology Date/Time Source Procedure Growth Status 01/18/18 09:20 Blood Blood Culture - Preliminary NO GROWTH AFTER 24 HOURS Resulted 01/18/18 09:10 Blood Blood Culture - Preliminary NO GROWTH AFTER 24 HOURS Resulted 01/18/18 09:05 Urine,Clean Catch Urine Culture - Final Escherichia Coli - Esbl Complete 01/18/18 09:00 Rectum - Final NO CARBAPENEM-RESISTANT ENTEROBACTERI... Complete Laboratory Tests Test 01/20/18 09:45 White Blood Count 4.0 K/UL (4.8-10.8) L Red Blood Count 4.67 M/UL (4.20-5.40) Hemoglobin 11.9 G/DL (12.0-16.0) L Hematocrit 38.7 % (37.0-47.0) Mean Corpuscular Volume 83 FL (80-99) Mean Corpuscular Hemoglobin 25.5 PG (27.0-31.0) L Mean Corpuscular Hemoglobin Concent 30.8 G/DL (32.0-36.0) L Red Cell Distribution Width 14.7 % (11.6-14.8) Platelet Count 148 K/UL (150-450) L Mean Platelet Volume 6.9 FL (6.5-10.1) Neutrophils (%) (Auto) 51.3 % (45.0-75.0) Lymphocytes (%) (Auto) 34.2 % (20.0-45.0) Monocytes (%) (Auto) 10.4 % (1.0-10.0) H Eosinophils (%) (Auto) 3.5 % (0.0-3.0) H Basophils (%) (Auto) 0.6 % (0.0-2.0) Sodium Level 143 MMOL/L (136-145) Potassium Level 3.7 MMOL/L (3.5-5.1) Chloride Level 106 MMOL/L (98-107) Carbon Dioxide Level 33 MMOL/L (21-32) H Anion Gap 4 mmol/L (5-15) L Blood Urea Nitrogen 22 mg/dL (7-18) H Creatinine 0.9 MG/DL (0.55-1.30) Estimat Glomerular Filtration Rate > 60 mL/min (>60) Glucose Level 144 MG/DL (74-106) H Calcium Level 8.3 MG/DL (8.5-10.1) L Phosphorus Level 3.0 MG/DL (2.5-4.9) Magnesium Level 2.1 MG/DL (1.8-2.4) Troponin I 0.000 ng/mL (0.000-0.056) Current Medications Medications (Trade) Dose Ordered Sig/Shiraz Route PRN Reason Start Time Stop Time Status Last Admin Dose Admin Acetaminophen (Tylenol) 650 mg Q4H PRN ORAL Mild Pain/Temp > 100.5 01/19/18 17:01 02/17/18 17:00 Acetaminophen/ Hydrocodone Bitart ([place] 10/325) 1 tab Q4H PRN ORAL pain 7-10 01/19/18 17:03 01/26/18 17:02 01/20/18 13:49 Acetaminophen/ Hydrocodone Bitart ([place] 5/325) 1 tab Q4H PRN ORAL Moderate Pain (Pain Scale 4-6) 01/19/18 17:03 01/26/18 17:02 Amlodipine Besylate (Norvasc) 5 mg DAILY ORAL 01/20/18 09:00 02/19/18 08:59 01/20/18 09:30 Aspirin (ASA) 81 mg DAILY ORAL 01/20/18 09:00 02/17/18 11:14 01/20/18 09:30 Carvedilol (Coreg) 3.125 mg EVERY 12 HOURS ORAL 01/19/18 21:00 02/17/18 20:59 01/20/18 09:31 Dextrose (Dextrose 50%) 25 ml Q30M PRN IV Hypoglycemia 01/19/18 17:15 02/17/18 11:14 Dextrose (Dextrose 50%) 50 ml Q30M PRN IV Hypoglycemia 01/19/18 17:15 02/17/18 11:14 Diltiazem HCl (Cardizem) 60 mg EVERY 8 HOURS ORAL 01/19/18 22:00 02/17/18 13:59 01/20/18 13:49 Divalproex Sodium (Depakote) 500 mg EVERY 12 HOURS ORAL 01/19/18 21:00 02/17/18 20:59 01/20/18 09:31 Docusate Sodium (Colace) 200 mg BID ORAL 01/19/18 18:00 02/17/18 17:59 Enalaprilat (Vasotec) 1.5 mg Q6H PRN IV SBP>170 01/19/18 17:00 02/17/18 16:59 Heparin Sodium (Porcine) (Heparin 5000 units/ml) 5,000 units EVERY 12 HOURS SUBQ 01/19/18 21:00 02/17/18 20:59 01/20/18 09:39 Linezolid 300 ml @ 300 mls/hr EVERY 12 HOURS IVPB 01/19/18 21:00 01/25/18 20:59 01/20/18 09:31 Lorazepam (Ativan 2mg/ml 1ml) 2 mg Q6H PRN IV For Anxiety 01/19/18 17:03 01/25/18 17:02 Meropenem 1 gm/ Sodium Chloride 55 ml @ 110 mls/hr Q8HR IVPB 01/19/18 22:00 01/23/18 13:59 01/20/18 13:49 Ondansetron HCl (Zofran) 4 mg Q4H PRN IVP Nausea & Vomiting 01/19/18 17:15 02/17/18 13:14 01/20/18 13:49 Aleisha Coronel MD Jan 20, 2018 16:24
[2018-01-20] MEDS ORDERED: BACTRIM DS TAB1 EAC1 ORAL (18:17)
[2018-01-20] MEDS ORDERED: ERTAPENEM1 GM IJ (18:17)
[2018-01-20 20:00] VITALS: BP 152/85
[2018-01-20 20:31] VITALS: BP 152/85
--- NOTE | 2018-01-22 11:40 | Discharge Summary ---
Discharge Summary Discharge Summary _ DATE OF ADMISSION: 01/18/2018 DATE OF DISCHARGE:01/20/2018 REASON FOR ADMISSION: 67 years old female , resident of care home facility, with past medical history of hypertension, congestive heart failure, morbid obesity, depression, anxiety, hepatitis C, GERD, venous stasis and chronic lymphedema, multidrug resistant UTI, presented with complaint of chest pain , nausea and vomiting. Patient by herself was a poor historian and unable to provide detailed history. Patient reported chest pain lasting several hours , nonradiating ,nonexertional , reproducible on palpation , 10 out of 10. Patient also reported episodes of non-bloody vomiting, no diarrhea, no bloody stools, no abdominal pain. Upon evaluation vital signs reveal elevated blood pressure 138/109. Laboratory workup revealed leukopenia ,stable hemoglobin and hematocrit . Troponin negative. EKG revealed normal sinus rhythm no acute ischemic changes; pro BNP 217. Chest x-ray revealed mild CHF. Urinalysis revealed evidence of UTI. Patient admitted with diagnoses of atypical chest pain, urinary tract infection , bilateral lower extremity cellulitis, nausea and vomiting, schizophrenia, depression CONSULTANTS: ID specialist Dr. Coronel clay dry press mixer operator/oncologist Dr. Aden psychiatrist [facility] COURSE: Patient admitted to monitored floor. Serial troponin were negative. EKG revealed no acute ischemic changes. Thus, patient was ruled out for acute [place]. Chest pain was reproducible on palpation during exam. Fasting lipid panel revealed elevated triglycerides. Patient was educated on low-fat low-cholesterol diet. Antiplatelet therapy with aspirin was continued. Blood pressure was managed with calcium channel yves and beta yves. Statin was continued. DVT prophylaxis provided. Prior echo revealed preserved ejection fraction. Patient started on empiric antibiotic. Infectious disease specialist closely followed. Urine culture revealed Escherichia coli ESBL. Antibiotic regimen optimized as per infectious disease specialist recommendations , who advised on total of 10 days of antibiotic course to be completed at the facility. Pain management was provided and addressed judiciously given history of opiate dependency. Bowel regimen instituted. Psychiatrist seen and evaluated patient, diagnosed patient with schizophrenia and depression and opiate dependency. Supportive therapy and reality orientation provided. Patient was on Depakote and Risperdal. No homicidal or suicidal ideations, no behavioral issues identified. Business And Services Instructor closely followed for leukopenia. Per clay dry press mixer operator, leukopenia was likely related to known history of hepatitis C, in 4-5 range prior to discharge. Continue close monitoring of WBC count at the facility. Prior HIV test was negative. Anemia was mild and stable. Business And Services Instructor recommended to obtain anemia workup if hemoglobin drops below 10 . Wound care provided, however patient kept on refusing wound care. Atypical chest pain resolved. Pulse oximetry stable on room air. Patient was able to tolerate diet; no nausea, no vomiting , no abdominal pain. Antiemetic were on board as needed. Nausea and vomiting were possibly due to infectious process. Patient stabilized and was ready for transfer to care home facility ; complete antibiotic course as advised by ID specialist. FINAL DIAGNOSES: Atypical chest pain , reproducible on palpation -resolved Escherichia coli ESBL UTI/complicated UTI Bilateral lower extremity cellulitis Morbid obesity Schizophrenia Depression Opiate dependency Hypertension Hyperlipidemia Anemia Venous stasis Leukopenia DISCHARGE MEDICATIONS: See Medication Reconciliation list. DISCHARGE INSTRUCTIONS: Patient was discharged to the care home facility. Follow up with medical doctor at the facility. I have been assigned to dictate discharge summary for this account. I was not involved in the patient's management. Luz Bowen NP Jan 22, 2018 11:40
--- NOTE | 2018-01-22 12:19 | Cardiology Report ---
APPROVED REPORT EKG Measurement Heart [id number] Normal sinus rhythm Inferior infarct, age undetermined Anteroseptal infarct, age undetermined Abnormal ECG
--- NOTE | 2018-01-22 12:23 | Cardiology Report ---
APPROVED REPORT EKG Measurement Heart [id number] [place] [id number] Normal sinus rhythm Inferior infarct, age undetermined Anteroseptal infarct, age undetermined Abnormal ECG
== END 2018-01-20 22:30 | disposition short-term general hospital (02) | DRG 463 ==
LOC: EDBD 08:38 → EMR 08:49 → EDBEDREQ 09:02 → 2E 09:15 → EDBEDREQ 10:01 → 4E 01-19 17:30
DX: N39.0 Urinary tract infection, site not specified (principal); D68.9 Coagulation defect, unspecified; E66.01 Morbid (severe) obesity due to excess calories; F20.9 Schizophrenia, unspecified; F11.20 Opioid dependence, uncomplicated; R07.89 Other chest pain; L03.115 Cellulitis of right lower limb; L03.116 Cellulitis of left lower limb; B96.20 Unspecified Escherichia coli [E. coli] as the cause of diseases classified elsewhere; Z16.12 Extended spectrum beta lactamase (ESBL) resistance; F32.9 Major depressive disorder, single episode, unspecified; I10 Essential (primary) hypertension; E78.5 Hyperlipidemia, unspecified; D64.9 Anemia, unspecified; I87.8 Other specified disorders of veins; I89.0 Lymphedema, not elsewhere classified; Z88.1 Allergy status to other antibiotic agents; Z88.8 Allergy status to other drugs, medicaments and biological substances; K21.9 Gastro-esophageal reflux disease without esophagitis; Z86.19 Personal history of other infectious and parasitic diseases; R11.2 Nausea with vomiting, unspecified; Z68.42 Body mass index [BMI] 45.0-49.9, adult
CPT/HCPCS: 36415; 71045; 80048; 80053; 80061; 80164; 81003; 82550; 82553; 83036; 83605; 83735; 83880; 84100; 84484; 85025; 87040; 87081; 87086; 87181; 93005; 96365; 96375; 99285; J2405

== ENCOUNTER 2018-05-22 18:12 | Emergency (ER) | payer MEDICAID ==
[~2018-05-22] VITALS: Ht 167.6 cm; Wt 178.7 kg
[~2018-05-22 18:12] MED LIST changes: +DOCUSATE SODIU250 MG ORAL; +ERTAPENEM1 GM IJ; +LACTULOSE20 GM/301 ORAL; +LEVAQUIN500 MG ORAL; +POTASSIUM CHLO20 ME3 PO; +PREMARIN0.3 MG ORAL; +PROTONIX40 MG ORAL; +ZOFRAN ODT8 MG ORAL
--- NOTE | 2018-05-22 18:18 | NUR ---
ED Nurse Note: called no answer in wr. pt in brp
--- NOTE | 2018-05-22 18:40 | NUR ---
ED Nurse Note: not in wr
--- NOTE | 2018-05-22 19:11 | NUR ---
ED Nurse Note: not in waiting room.
[2018-05-22 19:45] VITALS: BP 143/96
--- NOTE | 2018-05-22 19:45 | NUR ---
ED Nurse Note: Pt arrived ED from home. C/o wanted to change dressing on her left chronic wound. Pt is A/O x4. Pt is on her own wheelchair and both legs were Edema 4+. c/o chronic pain 07/19. waiting for orders.
[2018-05-22] MEDS ORDERED: Tylenol #3 tab (300mg/30mg) ORAL ONE (20:15)
[2018-05-22] MEDS ORDERED: ZINC OXIDE56.7 G1 TP (21:18)
[2018-05-22 21:29] VITALS: BP 141/95
--- NOTE | 2018-05-22 21:29 | NUR ---
ED Nurse Note: Pt has seen by , all orders carried out, dressing applied to her left leg. Pt is ready for Discharge. D/C instruction and Prescription given to Pt and verbalized understanding. ID band removed. Pt d/c from ED with her own wheelchair .
--- NOTE | 2018-05-26 07:02 | Emergency Room Report ---
History of Present Illness General Chief Complaint: General Complaint Source: Patient Present Illness HPI [id number] female presents ED for evaluation. Patient complaining of pain to bilateral legs. States she has history of chronic cutaneous venous stasis ulcers. Has dressings on her legs. Asked for them to be changed. Pain is throbbing, 5 out of 10, nonradiating. Denies fevers or chills. Denies any recent injury. [place] [facility] [place]. No other aggravating relieving factors. Denies any other associated symptoms Allergies: Coded Allergies: HALOPERIDOL (Verified Allergy, Unknown, 01/28/09) HALOPERIDOL LACTATE (Unverified Allergy, Unknown, 07/30/16) VANCOMYCIN (Unverified Adverse Reaction, Intermediate, Shortness of Breath , 06/26/13) Patient History Past Medical History: HTN, COPD Past Surgical History: none Pertinent Family History: none Social History: Denies: smoking, alcohol use, drug use Now: No Immunizations: UTD Reviewed Nursing Documentation: PMH: Agreed; PSxH: Agreed Nursing Documentation-PMH Past Medical History: No History, Except For Hx Cardiac Problems: Yes Hx Hypertension: Yes Hx Asthma: No Hx COPD: Yes Hx Cancer: No Hx Gastrointestinal Problems: Yes Hx Dialysis: No Hx Neurological Problems: Yes Hx Cerebrovascular Accident: No Hx Seizures: No Hx Weakness: Yes Hx Fatigue: Yes Hx Neurologic Surgery: No Review of Systems All Other Systems: negative except mentioned in HPI Physical Exam Vital Signs Date Time Temp Pulse Resp B/P (MAP) Pulse Ox O2 Delivery O2 Flow Rate FiO2 05/22/18 19:37 98.6 149 26 159/94 93 Room Air Sp02 EP Interpretation: reviewed, normal General Appearance: no apparent distress, alert, GCS 15, non-toxic, obese Head: normocephalic Eyes: bilateral eye normal inspection, bilateral eye PERRL ENT: normal ENT inspection Neck: normal inspection Respiratory: chest non-tender, lungs clear, normal breath sounds, speaking full sentences Cardiovascular #1: regular rate, rhythm, no edema Gastrointestinal: normal inspection Rectal: deferred Genitourinary: no CVA tenderness Musculoskeletal: normal inspection Neurologic: alert, oriented x3, responsive, motor strength/tone normal, sensory intact, speech normal Psychiatric: normal inspection Skin: rash - inguinal area, buttock, satellite lesions, nonerythematous base, other - chronic venous cutaneous stasis ulcers Lymphatic: normal inspection Medical Decision Making Homeless Attestation I, The treating physician Dr. Lindquist, has assessed and agrees that patient is medically stable for discharge to an outpatient disposition. Diagnostic Impression: Primary Impression: Rash Additional Impression: Change of dressing ER Course Hospital Course 67 yo F presents to ED c/o rash to inguinal area, requesting dressing changes to her lower extremities Differential diagnoses include: Cellulitis, dermatitis, insect bite, abscess Clinical course Patient placed on stretcher. After initial history, physical exam reveals an obese female in no acute distress. On exam there chronic cutaneous venous stasis ulcers to bilateral lower extremities. no signs of active infection. dressing changed there appears to be a rash to the inguinal/buttock region. looks fungal in nature like a diaper rash. we will prescribe zinc oxide Patient was previously residing in a retirement facility. Patient states she is homeless at this time. Will not specify as to why she left the facility. Homeless checklist completed. Patient refusing any additional assistance at this time Diagnosis - rash, change of dressing stable and discharged to home with prescription for Zinc Oxide. Instructed to followup with PMD. Instructed return to ED if symptoms recur or worsen Last Vital Signs Date Time Temp Pulse Resp B/P (MAP) Pulse Ox O2 Delivery O2 Flow Rate FiO2 05/22/18 21:29 98.2 110 26 141/95 93 Room Air 110 Status: improved Disposition: HOME, SELF-CARE Condition: Stable Referrals: [id number],REFERRING Patient Instructions: Wilmer [id number] Luke Lindquist MD May 26, 2018 07:02
== END 2018-05-22 21:29 | disposition home or self-care (01) ==
LOC: EMR 20:00
DX: R21 Rash and other nonspecific skin eruption (principal); Z48.00 Encounter for change or removal of nonsurgical wound dressing; I83.009 Varicose veins of unspecified lower extremity with ulcer of unspecified site; I10 Essential (primary) hypertension; J44.9 Chronic obstructive pulmonary disease, unspecified
CPT/HCPCS: 99282

== ENCOUNTER 2018-05-28 00:56 | Emergency (ER) | payer MEDICAID ==
[~2018-05-28] VITALS: Ht 167.6 cm; Wt 181.4 kg
[~2018-05-28 00:56] MED LIST changes: +ZINC OXIDE56.7 G1 TP
[2018-05-28 02:13] VITALS: BP 146/96
--- NOTE | 2018-05-28 02:15 | NUR ---
ED Nurse Note: Patient presents to ED in wheelchair c/o bilateral leg pain due to the weather. Patient reports she needs a dressing change for a wound on her left leg. Patient reports 10/10 pain. Patient AOx4, VSS, non ambulatory, no s/s of acute distress noted at this time. Patient seen by EDDID at bedside.
--- NOTE | 2018-05-28 04:59 | Emergency Room Report ---
History of Present Illness General Chief Complaint: Wound Recheck/Suture Removal Source: Patient Present Illness HPI Patient presents for evaluation of her leg wounds Denies any recent fever denies any discharge Patient has had several visits with similar complaints Denies any recent fall or trauma Patient initially was attempted to be evaluated however was in the cafeteria And the patient was also and the restroom and was finally able to be evaluated Allergies: Coded Allergies: HALOPERIDOL (Verified Allergy, Unknown, 01/28/09) HALOPERIDOL LACTATE (Unverified Allergy, Unknown, 07/30/16) VANCOMYCIN (Unverified Adverse Reaction, Intermediate, Shortness of Breath , 06/26/13) Patient History Past Medical History: see triage record Pertinent Family History: none Last Menstrual Period: SHANTE Now: No Reviewed Nursing Documentation: PMH: Agreed; PSxH: Agreed Nursing Documentation-PMH Past Medical History: No History, Except For Hx Cardiac Problems: Yes Hx Hypertension: Yes Hx Asthma: No Hx COPD: Yes Hx Cancer: No Hx Gastrointestinal Problems: Yes Hx Dialysis: No Hx Neurological Problems: Yes Hx Cerebrovascular Accident: No Hx Seizures: No Hx Weakness: Yes Hx Fatigue: Yes Hx Neurologic Surgery: No Review of Systems All Other Systems: negative except mentioned in HPI Physical Exam Vital Signs Date Time Temp Pulse Resp B/P (MAP) Pulse Ox O2 Delivery O2 Flow Rate FiO2 05/28/18 01:55 98.2 97 20 146/96 93 Room Air Sp02 EP Interpretation: reviewed, normal General Appearance: no apparent distress Head: normocephalic, atraumatic Eyes: bilateral eye PERRL, bilateral eye EOMI ENT: normal pharynx Neck: supple Respiratory: lungs clear, no retraction, no accessory muscle use Musculoskeletal: swelling - Venous insufficiency multiple chronic evaluations Neurologic: alert, oriented x3, responsive Skin: other - Venous insufficiency, erythema bilaterally edema Lymphatic: no adenopathy, other Medical Decision Making Diagnostic Impression: Primary Impression: Encounter for wound re-check ER Course Patient has had multiple re-examinations Patient was provided with dressing changes with Curlex and rewrapping Again was encouraged to follow up closely with outpatient status and will return with any changes Last Vital Signs Date Time Temp Pulse Resp B/P (MAP) Pulse Ox O2 Delivery O2 Flow Rate FiO2 05/28/18 02:13 98.2 97 20 146/96 93 Room Air Status: improved Disposition: HOME, SELF-CARE Condition: Stable Referrals: NOT CHOSEN IPA/MD,REFERRING (PCP) Patient Instructions: Wound Check Additional Instructions: Patient is provided with the discharge instructions notified to follow up with primary doctor in the next 2-3 days otherwise return to the er with any worsening symptoms. Please note that this report is being documented using Hypejar technology. This can lead to erroneous entry secondary to incorrect interpretation by the dictating instrument. Nima Colon DO May 28, 2018 04:59
--- NOTE | 2018-05-28 05:00 | NUR ---
ED Nurse Note: Wound dressing changed by automotive technician instructor.
[2018-05-28 05:30] VITALS: BP 141/92
--- NOTE | 2018-05-28 05:30 | NUR ---
Homeless Discharge: Patient is being discharged from medical care. Awake, alert and oriented x3. After care instructions, including referral to community resources were given. Patient verbalized understanding of After care instructions; at this time patient does not request medications, equipment or placement. Patient signed patient consent in the medical record for patient destination upon discharge. All medical devices such as IV and ID band were removed. Patient used wheelchair out of ED with all personal belongings with steady gait. Patient refused to sign homeless discharge form. Patient states she has been staying at shelters.
== END 2018-05-28 05:30 | disposition home or self-care (01) ==
LOC: EMR 01:30
DX: Z48.00 Encounter for change or removal of nonsurgical wound dressing (principal); I87.2 Venous insufficiency (chronic) (peripheral); I10 Essential (primary) hypertension; J44.9 Chronic obstructive pulmonary disease, unspecified
CPT/HCPCS: 99281

== ENCOUNTER 2018-05-30 18:03 | Inpatient (IN) | payer MEDICAID ==
[~2018-05-30] VITALS: Ht 175.3 cm; Wt 136.1 kg
[2018-05-30] MEDS ORDERED: UNOBMED (18:28)
--- NOTE | 2018-05-30 18:35 | NUR ---
ED Nurse Note: pt came into ED via wheelchair c/o right hip pain, pt states she went to [facility] today and felt better but started feeling pain again, denies injury. pt AA&ox4, gcs=15, skin warm and dry, resp even and unlabored on RA but reports sob, -n/v/d, noted BLE nonpitting edema with tenderness. acewrap on LLE. NSR on electric range servicer, VSS, will cont monitor. ERMD at the bedside.
[2018-05-30] MEDS ORDERED: Albuterol/Ipratropium 3ml neb HHN ONE (18:45)
[2018-05-30] MEDS ORDERED: Dicyclomine HCl 10mg/5ml oral soln ORAL ONE (18:45)
--- NOTE | 2018-05-30 19:09 | NUR ---
Hand off: REport given to NOEL Hammer and endorsed care.
--- NOTE | 2018-05-30 19:09 | NUR ---
ED Nurse Note: RT at the bedside for breathing tx.
[2018-05-30 19:10] VITALS: BP 180/98
--- NOTE | 2018-05-30 19:22 | NUR ---
ED Nurse Note: Received report from Alyssa COHEN. Pt in bed asleep but awoken upon hearing voices. Pt c/o abdominal pain but see eMAR for recent GI Rx administered. Pt awaiting tele room assignment for admission. Will continue to monitor.
--- NOTE | 2018-05-30 21:21 | NUR ---
ED Nurse Note: Pt's needs met with assistance in using bedpan. No distress noted. Will continue to monitor.
[2018-05-30 21:30] VITALS: BP 161/97
--- NOTE | 2018-05-30 22:22 | Emergency Room Report ---
History of Present Illness General Chief Complaint: Pain Source: Patient, Medical Record Present Illness HPI Patient is a 67-year-old female presented after increased abdominal pain. Patient reports of increased crampy abdominal pain. She had prior history of chronic nonhealing wounds to her lower extremities. Patient had recently been having increased discomfort to her mid abdomen.Patient reports having increased chest pain. Chest pain was worsened by cough. Patient had been previously a smoker. She was noted to have prior history of hypertension Allergies: Coded Allergies: HALOPERIDOL (Verified Allergy, Unknown, 01/28/09) HALOPERIDOL LACTATE (Unverified Allergy, Unknown, 07/30/16) VANCOMYCIN (Unverified Adverse Reaction, Intermediate, Shortness of Breath , 06/26/13) Patient History Last Menstrual Period: 20 YEARS AGO Now: No - S/P HYSTERECTOMY Reviewed Nursing Documentation: PMH: Agreed; PSxH: Agreed Nursing Documentation-PMH Past Medical History: No History, Except For Hx Cardiac Problems: Yes Hx Hypertension: Yes Hx Asthma: No Hx COPD: Yes Hx Cancer: No Hx Gastrointestinal Problems: Yes Hx Dialysis: No Hx Neurological Problems: Yes Hx Cerebrovascular Accident: No Hx Seizures: No Hx Weakness: Yes Hx Fatigue: Yes Hx Neurologic Surgery: No Review of Systems All Other Systems: limited - by poor historian Physical Exam Vital Signs Date Time Temp Pulse Resp B/P (MAP) Pulse Ox O2 Delivery O2 Flow Rate FiO2 05/30/18 18:26 98.2 73 15 191/102 100 Room Air 05/30/18 19:04 21 General Appearance: obese, Chronically Ill Eyes: bilateral eye PERRL Neck: limited range of motion Respiratory: no rhonchi, wheezing Cardiovascular #1: edema Gastrointestinal: soft, overweight Musculoskeletal: swelling, other - chronic wound to left lower extremity Neurologic: normal inspection, alert, oriented x3 Skin: other - lymphedema and wound to right lower extremity Medical Decision Making Diagnostic Impression: Primary Impression: Chest pain, atypical ER Course Patient presented for chest pain. Differential diagnosis include was not limited toPneumonia, bronchitis, COPD, gastroenteritis among others. Because of complexity of patient's case laboratory testing and imaging studies were ordered.Patient was noted to have morbid obesity.EKG interpreted by me showed normal sinus rhythm with a rate of [address] changes.Patient was given a GI cocktail with improvement in her symptoms.Patient was noted to have concerning risk factors for potential cardiac chest pain. Dr. Nima Wheeler was contacted for inpatient management due to panel physician Labs Test 05/30/18 23:11 White Blood Count 5.4 K/UL (4.8-10.8) Red Blood Count 4.56 M/UL (4.20-5.40) Hemoglobin 11.7 G/DL (12.0-16.0) Hematocrit 36.2 % (37.0-47.0) Mean Corpuscular Volume 79 FL (80-99) Mean Corpuscular Hemoglobin 25.7 PG (27.0-31.0) Mean Corpuscular Hemoglobin Concent 32.3 G/DL (32.0-36.0) Red Cell Distribution Width 15.8 % (11.6-14.8) Platelet Count 153 K/UL (150-450) Mean Platelet Volume 7.2 FL (6.5-10.1) Neutrophils (%) (Auto) 64.7 % (45.0-75.0) Lymphocytes (%) (Auto) 24.7 % (20.0-45.0) Monocytes (%) (Auto) 7.6 % (1.0-10.0) Eosinophils (%) (Auto) 2.3 % (0.0-3.0) Basophils (%) (Auto) 0.7 % (0.0-2.0) Sodium Level 144 MMOL/L (136-145) Potassium Level 4.2 MMOL/L (3.5-5.1) Chloride Level 106 MMOL/L (98-107) Carbon Dioxide Level 30 MMOL/L (21-32) Anion Gap 8 mmol/L (5-15) Blood Urea Nitrogen 21 mg/dL (7-18) Creatinine 1.0 MG/DL (0.55-1.30) Estimat Glomerular Filtration Rate 55.7 mL/min (>60) Glucose Level 119 MG/DL (74-106) Calcium Level 8.7 MG/DL (8.5-10.1) Total Bilirubin 0.4 MG/DL (0.2-1.0) Aspartate Amino Transf (AST/SGOT) 28 U/L (15-37) Alanine Aminotransferase (ALT/SGPT) 21 U/L (12-78) Alkaline Phosphatase 99 U/L (46-116) Troponin I 0.014 ng/mL (0.000-0.056) Total Protein 7.1 G/DL (6.4-8.2) Albumin 3.1 G/DL (3.4-5.0) Globulin 4.0 g/dL Albumin/Globulin Ratio 0.8 (1.0-2.7) Lipase 116 U/L (73-393) EKG Diagnostic Results Rate: normal Rhythm: NSR ST Segments: no acute changes Last Vital Signs Date Time Temp Pulse Resp B/P (MAP) Pulse Ox O2 Delivery O2 Flow Rate FiO2 05/30/18 19:14 72 14 100 Room Air 21 05/30/18 19:10 98.2 180/98 Status: improved Disposition: ADMITTED INPATIENT Condition: Stable Referrals: NON PHYSICIAN (PCP) Levi Rubin MD May 30, 2018 22:22
[2018-05-30 23:30] VITALS: BP 199/77
[2018-05-30 23:37] LABS: BASOPHILS % (AUTO) 0.7 % (0.0-2.0); EOSINOPHILS % (AUTO) 2.3 % (0.0-3.0); HEMATOCRIT 36.2 % (37.0-47.0); HEMOGLOBIN 11.7 G/DL (12.0-16.0); LYMPHOCYTES % (AUTO) 24.7 % (20.0-45.0); MEAN CORPUSCULAR VOLUME 79 FL (80-99); MONOCYTES % (AUTO) 7.6 % (1.0-10.0); NEUTROPHILS % (AUTO) 64.7 % (45.0-75.0); PLATELET COUNT 153 K/UL (150-450); RED BLOOD COUNT 4.56 M/UL (4.20-5.40); RED CELL DISTRIBUTION WIDTH 15.8 % (11.6-14.8); WHITE BLOOD COUNT 5.4 K/UL (4.8-10.8)
[2018-05-31] VITALS (9 sets, daily range): BP systolic 140–184; BP diastolic 64–119
[2018-05-31 00:10] LABS: ANION GAP 8 mmol/L (5-15); BLOOD UREA NITROGEN 21 mg/dL (7-18); CALCIUM 8.7 MG/DL (8.5-10.1); CARBON DIOXIDE 30 MMOL/L (21-32); CHLORIDE 106 MMOL/L (98-107); POTASSIUM 4.2 MMOL/L (3.5-5.1); SODIUM 144 MMOL/L (136-145)
[2018-05-31 00:14] LABS: ALANINE AMINOTRANSFERASE 21 U/L (12-78); ALBUMIN 3.1 G/DL (3.4-5.0); ALBUMIN/GLOBULIN RATIO 0.8 (1.0-2.7); ALKALINE PHOSPHATASE 99 U/L (46-116); ASPARTATE AMINO TRANSFERASE 28 U/L (15-37); BILIRUBIN,TOTAL 0.4 MG/DL (0.2-1.0)
[2018-05-31] MEDS ORDERED: Mylanta II UD 30ml ORAL PRN (01:15)
[2018-05-31] MEDS ORDERED: dilTIAZem HCl 60mg tab ORAL SCH (06:00)
--- NOTE | 2018-05-31 07:19 | NUR ---
HAND-OFF: Report given to Sonja COHEN. Pt stable. Endorsed transfer to [facility] for admission.
[2018-05-31] MEDS: dilTIAZem HCl 60mg tab ORAL SCH ×3 (07:44→21:13)
--- NOTE | 2018-05-31 07:44 | NUR ---
ED Nurse Note: Cardizem 60 mg picked up at Pharmacy and given at this time.
[2018-05-31] MEDS ORDERED: Premarin tab 0.625MG ORAL SCH (09:00)
[2018-05-31] MEDS: Depakote 500mg tab ORAL SCH ×2 (09:01→17:44)
--- NOTE | 2018-05-31 09:40 | NUR ---
ED Nurse Note: paste maker is not avaiulable to take report at this time, will call again.
--- NOTE | 2018-05-31 10:12 | NUR ---
ED Nurse Note: Report given to NOEL Olmedo at ext [phone]. Pt to be transfered to room 220-1 per protocol on [facility] with all belongings.
--- NOTE | 2018-05-31 10:42 | Diagnostic Imaging Report ---
Indication: Chest pain Technique: One view of the chest Comparison: 01/18/2018 Findings: The heart is enlarged. The lungs and pleural spaces are clear. Previously demonstrated pulmonary vascular congestion is no longer evident. Impression: Cardiomegaly No acute process
--- NOTE | 2018-05-31 11:05 | NUR ---
NURSE NOTES:WOUND CARE NOTES:Pt presented on admission with multiple partial thickness pressure injuries to R and L buttocks. L gluteal partial thickness pressure injury moist-viable ,edges flat and adherent to base of wound(L)5cm x (W)2.5cm .Non-blanchable erythema without tenderness periwound. Partial thickness pressure injury to L buttocks.Base of wound moist -viable ,edges adherent and flat. Non-blanchable erythema without tenderness on palpation (L)2.5cm x (W)2cm. Lymphedemae bilat lower ext with Xeroses Skin.Erythema L lower ext. Wound lateral L tibia that is norma and oozing large amt non-odorous serous exudate. Both heels are intact and blanchable .Pt also noted to have fungal red rash with moisture denudement L breast into L axilla. Recommendations:Apply Moisture Barrier Paste to R andf L buttocks with each perineal care. Apply Light dusting of Antifungal powder to L breast and axilla Twice daily . Cleanse L leg wound with saline.Apply Xeroform gauze.Cover with (2 )ABD pads. Wrap with Kerlix from Base of toes Daily and prn .Follow with Abraham bandages.(If PCP agrees) Reposition at least every 2hours or as tolerated. Off-load heels with pillow.
--- NOTE | 2018-05-31 11:30 | Consultation ---
History of Present Illness General Chief Complaint: Pain Present Illness HPI 67-year-old female presented after increased abdominal pain and schizophrenia. the pt is pw disorganized speech and behavior. the pt is somewhat confused and is unable to provide hx and has waxing and waning of consciousness. the pt has impairment of memory. Im well familiar with this pt and the pt is more confused than baseline. Allergies: Coded Allergies: HALOPERIDOL (Verified Allergy, Unknown, 01/28/09) HALOPERIDOL LACTATE (Unverified Allergy, Unknown, 07/30/16) VANCOMYCIN (Unverified Adverse Reaction, Intermediate, Shortness of Breath , 06/26/13) Medication History Scheduled Bimatoprost (Lumigan), 1 DROP BOTH EYES HS, (Reported) Diltiazem Hcl* (Cardizem*), 60 MG ORAL EVERY 8 HOURS, (Reported) Divalproex Sodium* (Depakote*), 500 MG PO BID, (Reported) Estrogens Conjugated (Premarin), 0.3 MG ORAL DAILY, (Reported) Latanoprost/Pf (Latanoprost 0.005% Eye Drop), 1 DROP OP DAILY, (Reported) Pantoprazole* (Protonix*), 40 MG ORAL DAILY, (Reported) Miscellaneous Medications Potassium Chloride (Potassium Chloride), 20 MEQ PO, (Reported) Unable to Obtain Medications (Unable To Obtain Meds), (Reported) Patient History Limited by: medical condition History Provided By: Medical Record, PMD Healthcare decision maker Resuscitation status Advanced Directive on File Past Medical/Surgical History Past Medical/Surgical History: (1) Essential hypertension (2) Anemia (3) Depression (4) Pyelonephritis (5) Schizophrenia (6) Sepsis (7) GERD (gastroesophageal reflux disease) (8) Infection due to ESBL-producing Escherichia coli (9) Chronic venous stasis (10) Lymphadema (11) Nausea (12) Left leg cellulitis (13) Nausea and vomiting (14) Constipation (15) Lactic acidosis (16) Tinea cruris (17) Onychomycosis (18) Emesis (19) Cough (20) Opiate dependence (21) Opiate dependence (22) Opiate dependence (23) Abdominal pain (24) Chest pain (25) Chest pain (26) Obesity (27) Chronic ulcer of leg (28) Chronic ulcer of leg (29) Chronic ulcer of leg (30) ACS (acute coronary syndrome) (31) Smoker (32) Acute chest pain (33) Encounter for dressing change or suture removal (34) Acute encephalopathy (35) Intractable nausea and vomiting (36) Change of dressing (37) Change of dressing (38) Change of dressing (39) Change of dressing (40) Change of dressing (41) Change of dressing (42) Change of dressing (43) ESBL urine (44) Lymphadema (45) Lymphedema (46) Lymphedema (47) Lymphedema (48) Lymphedema (49) Lymphedema (50) Lymphedema (51) Lymphedema (52) Lymphedema (53) Open wound of foot (54) Open wound of foot (55) cellulitis (56) chronic lymphedema (57) chronic lymphedema (58) chronic lymphedema (59) hypertension uncontrolled (60) hypertension uncontrolled (61) hypertension uncontrolled (62) hypertension uncontrolled (63) hypertension uncontrolled (64) tenia corpus (65) Depression (66) Opiate dependence (67) Schizophrenia (68) Edema (69) UTI (urinary tract infection) (70) Rash (71) Change of dressing (72) Encounter for wound re-check (73) Chest pain, atypical Review of Systems Psychiatric: Reports: anxiety, depressed feelings, emotional problems, hallucinations Physical Exam General Appearance: WD/WN, alert, confused, agitated, morbidly obese Neurologic: alert, disoriented, depressed affect Last 24 Hour Vital Signs Date Time Temp Pulse Resp B/P (MAP) Pulse Ox O2 Delivery O2 Flow Rate FiO2 05/31/18 10:12 67 23 140/101 98 Nasal Cannula 2.0 05/31/18 09:41 66 20 154/64 99 Room Air 05/31/18 09:08 168/76 05/31/18 09:02 98.0 05/31/18 08:15 98.0 71 20 176/84 99 Room Air 21 05/31/18 07:44 72 174/71 05/31/18 05:40 98.0 70 19 168/73 97 Room Air 05/31/18 03:30 Room Air 05/31/18 03:16 98.2 75 23 140/98 96 Room Air 05/31/18 01:30 98.2 75 17 151/119 98 Room Air 05/30/18 23:30 98.3 72 16 199/77 98 Room Air 05/30/18 21:30 98.1 73 17 161/97 96 Room Air 05/30/18 19:14 72 14 100 Room Air 21 05/30/18 19:10 98.2 90 16 180/98 96 Room Air 05/30/18 19:04 78 16 96 Room Air 21 05/30/18 18:26 98.2 73 15 191/102 100 Room Air Intake and Output 05/30/18 05/31/18 19:00 07:00 Intake Total 240 ml Balance 240 ml Intake Oral 240 ml # Voids 1 Laboratory Tests Test 05/30/18 23:11 White Blood Count 5.4 K/UL (4.8-10.8) Red Blood Count 4.56 M/UL (4.20-5.40) Hemoglobin 11.7 G/DL (12.0-16.0) L Hematocrit 36.2 % (37.0-47.0) L Mean Corpuscular Volume 79 FL (80-99) L Mean Corpuscular Hemoglobin 25.7 PG (27.0-31.0) L Mean Corpuscular Hemoglobin Concent 32.3 G/DL (32.0-36.0) Red Cell Distribution Width 15.8 % (11.6-14.8) H Platelet Count 153 K/UL (150-450) Mean Platelet Volume 7.2 FL (6.5-10.1) Neutrophils (%) (Auto) 64.7 % (45.0-75.0) Lymphocytes (%) (Auto) 24.7 % (20.0-45.0) Monocytes (%) (Auto) 7.6 % (1.0-10.0) Eosinophils (%) (Auto) 2.3 % (0.0-3.0) Basophils (%) (Auto) 0.7 % (0.0-2.0) Sodium Level 144 MMOL/L (136-145) Potassium Level 4.2 MMOL/L (3.5-5.1) Chloride Level 106 MMOL/L (98-107) Carbon Dioxide Level 30 MMOL/L (21-32) Anion Gap 8 mmol/L (5-15) Blood Urea Nitrogen 21 mg/dL (7-18) H Creatinine 1.0 MG/DL (0.55-1.30) Estimat Glomerular Filtration Rate 55.7 mL/min (>60) Glucose Level 119 MG/DL (74-106) H Calcium Level 8.7 MG/DL (8.5-10.1) Total Bilirubin 0.4 MG/DL (0.2-1.0) Aspartate Amino Transf (AST/SGOT) 28 U/L (15-37) Alanine Aminotransferase (ALT/SGPT) 21 U/L (12-78) Alkaline Phosphatase 99 U/L (46-116) Troponin I 0.014 ng/mL (0.000-0.056) Total Protein 7.1 G/DL (6.4-8.2) Albumin 3.1 G/DL (3.4-5.0) L Globulin 4.0 g/dL Albumin/Globulin Ratio 0.8 (1.0-2.7) L Lipase 116 U/L (73-393) Height (Feet): 5 Height (Inches): 9.00 Weight (Pounds): 300 Medications Current Medications Medications (Trade) Dose Ordered Sig/Shiraz Route PRN Reason Start Time Stop Time Status Last Admin Dose Admin Acetaminophen (Tylenol) 650 mg Q4H PRN ORAL Mild Pain/Temp > 100.5 05/31/18 01:00 06/30/18 00:59 05/31/18 08:32 Al Hydroxide/Mg Hydroxide (Mylanta II) 30 ml Q4H PRN ORAL Constipation 05/31/18 01:15 06/30/18 01:14 Diltiazem HCl (Cardizem) 60 mg EVERY 8 HOURS ORAL 05/31/18 06:00 06/30/18 05:59 05/31/18 07:44 Divalproex Sodium (Depakote) 500 mg BID ORAL 05/31/18 09:00 06/30/18 08:59 05/31/18 09:01 Estrogens Conjugated (Premarin) 0.3 mg DAILY ORAL 05/31/18 09:00 06/30/18 08:59 UNV Latanoprost (Xalatan) 1 drop BEDTIME BOTH EYES 05/31/18 21:00 06/30/18 20:59 Pantoprazole (Protonix) 40 mg DAILY ORAL 05/31/18 09:00 06/30/18 08:59 05/31/18 09:01 Potassium Chloride (K-Dur) 20 meq DAILY ORAL 05/31/18 09:00 06/30/18 08:59 05/31/18 09:01 Assessment/Plan Problem List: (1) Schizophrenia ICD Codes: F20.9 - Schizophrenia, unspecified SNOMED: [id number] (2) Opiate dependence Status: unchanged Assessment/Plan Depakote 500mg po bid Risperdal 2mg po qhs Avoid pain meds the pt has dependence to Morphine Harris Ballesteros MD May 31, 2018 11:30
--- NOTE | 2018-05-31 12:33 | GI Initial Consult Note ---
History of Present Illness General Date patient seen: May 31, 2018 Time patient seen: 12:28 Reason for Hospitalization: Pain Referring physician: KANDY RUSSELL Reason for Consultation: abdominal pain Present Illness HPI Patient is a 67-year-old female presented after increased abdominal pain. Patient reports of increased crampy abdominal pain. She had prior history of chronic nonhealing wounds to her lower extremities. Patient had recently been having increased discomfort to her mid abdomen. GI consulted for abdominal pain. Patient seen, awake alert and oriented x4. No apparent distress. Has complaint of severe generalized abdominal pain, more directed to the epigastric region. Patient has abdominal tenderness on palpation, no abdominal distention. Noted patient is morbidly obese. Labs reviewed, hemoglobin 11.7, no transaminitis. Patient has no history of endoscopic or colonoscopy. Home Meds Reported Medications Unable to Obtain Medications (UNABLE TO OBTAIN MEDS) 1 Ea Ea 05/30/18 Estrogens Conjugated (Premarin) 0.3 Mg Tablet, 0.3 MG ORAL DAILY, #30 TAB 0 Refills 04/15/18 Potassium Chloride (Potassium Chloride) 20 Meq Tablet.er, 20 MEQ PO, TAB 04/15/18 Pantoprazole* (PROTONIX*) 40 Mg Tablet.dr, 40 MG ORAL DAILY, TAB 01/18/18 Latanoprost/Pf (Latanoprost 0.005% Eye Drop) 7.5 Ml Drops, 1 DROP OP DAILY, ML 12/09/17 Bimatoprost (LUMIGAN) 2.5 Ml Drops, 1 DROP BOTH EYES HS 11/03/17 Divalproex Sodium* (DEPAKOTE*) 250 Mg Tablet.dr, 500 MG PO BID 11/03/17 Diltiazem Hcl* (CARDIZEM*) 60 Mg Tablet, 60 MG ORAL EVERY 8 HOURS, TAB 07/31/16 Med list reviewed/reconciled: Yes Allergies: Coded Allergies: HALOPERIDOL (Verified Allergy, Unknown, 01/28/09) HALOPERIDOL LACTATE (Unverified Allergy, Unknown, 07/30/16) VANCOMYCIN (Unverified Adverse Reaction, Intermediate, Shortness of Breath , 06/26/13) Patient History History Provided By: Patient, Medical Record PMH Narrative Last Menstrual Period: 20 YEARS AGO Now: No - S/P HYSTERECTOMY Reviewed Nursing Documentation: PMH: Agreed; PSxH: Agreed Nursing Documentation-PM Past Medical History: No History, Except For Hx Cardiac Problems: Yes Hx Hypertension: Yes Hx Asthma: No Hx COPD: Yes Hx Cancer: No Hx Gastrointestinal Problems: Yes Hx Dialysis: No Hx Neurological Problems: Yes Hx Cerebrovascular Accident: No Hx Seizures: No Hx Weakness: Yes Hx Fatigue: Yes Hx Neurologic Surgery: No Social History: Denies: smoking, alcohol use, drug use, other Review of Systems All Other Systems: negative except mentioned in HPI Physical Exam Vital Signs Date Time Temp Pulse Resp B/P (MAP) Pulse Ox O2 Delivery O2 Flow Rate FiO2 05/30/18 18:26 98.2 73 15 191/102 100 Room Air 05/30/18 19:04 21 05/31/18 10:12 2.0 Sp02 EP Interpretation: reviewed, normal Labs Laboratory Tests Test 05/30/18 23:11 White Blood Count 5.4 K/UL (4.8-10.8) Red Blood Count 4.56 M/UL (4.20-5.40) Hemoglobin 11.7 G/DL (12.0-16.0) L Hematocrit 36.2 % (37.0-47.0) L Mean Corpuscular Volume 79 FL (80-99) L Mean Corpuscular Hemoglobin 25.7 PG (27.0-31.0) L Mean Corpuscular Hemoglobin Concent 32.3 G/DL (32.0-36.0) Red Cell Distribution Width 15.8 % (11.6-14.8) H Platelet Count 153 K/UL (150-450) Mean Platelet Volume 7.2 FL (6.5-10.1) Neutrophils (%) (Auto) 64.7 % (45.0-75.0) Lymphocytes (%) (Auto) 24.7 % (20.0-45.0) Monocytes (%) (Auto) 7.6 % (1.0-10.0) Eosinophils (%) (Auto) 2.3 % (0.0-3.0) Basophils (%) (Auto) 0.7 % (0.0-2.0) Sodium Level 144 MMOL/L (136-145) Potassium Level 4.2 MMOL/L (3.5-5.1) Chloride Level 106 MMOL/L (98-107) Carbon Dioxide Level 30 MMOL/L (21-32) Anion Gap 8 mmol/L (5-15) Blood Urea Nitrogen 21 mg/dL (7-18) H Creatinine 1.0 MG/DL (0.55-1.30) Estimat Glomerular Filtration Rate 55.7 mL/min (>60) Glucose Level 119 MG/DL (74-106) H Calcium Level 8.7 MG/DL (8.5-10.1) Total Bilirubin 0.4 MG/DL (0.2-1.0) Aspartate Amino Transf (AST/SGOT) 28 U/L (15-37) Alanine Aminotransferase (ALT/SGPT) 21 U/L (12-78) Alkaline Phosphatase 99 U/L (46-116) Troponin I 0.014 ng/mL (0.000-0.056) Total Protein 7.1 G/DL (6.4-8.2) Albumin 3.1 G/DL (3.4-5.0) L Globulin 4.0 g/dL Albumin/Globulin Ratio 0.8 (1.0-2.7) L Lipase 116 U/L (73-393) General Appearance: well appearing, no apparent distress, alert, obese Head: normocephalic EENT: PERRL/EOMI, normal ENT inspection Neck: supple Respiratory: normal breath sounds, no respiratory distress Cardiovascular: normal rate Gastrointestinal: normal inspection, non tender, soft, normal bowel sounds, non -distended Rectal: deferred Genitourinary: no CVA tenderness Musculoskeletal: normal inspection, back normal Neurologic: normal inspection, alert, oriented x3, responsive Psychiatric: normal inspection, judgement/insight normal, memory normal Skin: normal inspection, normal color, no rash, warm/dry, palpation normal, well hydrated Lymphatic: normal inspection, no adenopathy Current Medications Current Medications Medications (Trade) Dose Ordered Sig/Shiraz Route PRN Reason Start Time Stop Time Status Last Admin Dose Admin Acetaminophen (Tylenol) 650 mg Q4H PRN ORAL Mild Pain/Temp > 100.5 05/31/18 01:00 06/30/18 00:59 05/31/18 08:32 Al Hydroxide/Mg Hydroxide (Mylanta II) 30 ml Q4H PRN ORAL Constipation 05/31/18 01:15 06/30/18 01:14 Diltiazem HCl (Cardizem) 60 mg EVERY 8 HOURS ORAL 05/31/18 06:00 06/30/18 05:59 05/31/18 07:44 Divalproex Sodium (Depakote) 500 mg BID ORAL 05/31/18 09:00 06/30/18 08:59 05/31/18 09:01 Estrogens Conjugated (Premarin) 0.3 mg DAILY ORAL 05/31/18 09:00 06/30/18 08:59 UNV Latanoprost (Xalatan) 1 drop BEDTIME BOTH EYES 05/31/18 21:00 06/30/18 20:59 Ondansetron HCl (Zofran) 4 mg Q6H PRN IVP Nausea & Vomiting 05/31/18 12:00 06/30/18 11:59 Pantoprazole (Protonix) 40 mg DAILY ORAL 05/31/18 09:00 06/30/18 08:59 05/31/18 09:01 Potassium Chloride (K-Dur) 20 meq DAILY ORAL 05/31/18 09:00 06/30/18 08:59 05/31/18 09:01 Risperidone (RisperDAL) 2 mg BEDTIME ORAL 05/31/18 21:00 06/30/18 20:59 GI: Plan Problems: (1) Constipation (2) Emesis (3) Anemia (4) Schizophrenia (5) GERD (gastroesophageal reflux disease) (6) Chest pain, atypical (7) Abdominal pain Plan EGD scheduled for tomorrow to evaluate abdominal pain, patient refusing colonoscopy. - regular diet now, NPO @ MI. - hold all blood thinners anemia work up OB stool r/o GI bleed monitor H&H, prn transfusions bowel regime ppi fu labs We will follow with additional recommendations post procedure Discussed with Dr. Victoria. Thank you for this patient referral, we will follow. The patient was seen and examined at bedside and all new and available data was reviewed in the patients chart. I agree with the above findings, impression and plan. (Patient seen earlier today. Signature stamp does not reflect patient encounter time.). - MD Tish Lieberman,[facility] May 31, 2018 12:33
[2018-05-31] MEDS: Docusate 100mg cap ORAL SCH ×2 (13:19→17:44)
[2018-05-31] MEDS: Norco 5mg/325mg tab ORAL PRN ×2 (14:43→23:46)
--- NOTE | 2018-05-31 15:23 | NUR ---
Social Work This Sw received a consult due to patient is homeless. Patient has a history of homelessness, prior to going to [facility] [address] (has been a resident there since 07/15/2016) and will return to SNF when ready for discharge. Patient does not have any family to assist with decision making; M.D to consent for emergent medical needs (Bioethics to follow as needed).
--- NOTE | 2018-05-31 15:38 | Consultation ---
Consult Note Consult Note asked to eval for BP management by Dr Bolden patient seen today 06/01 examined data reviewed Assessment/Plan 1. Bilateral lower extremity lymphedema, 2. Noncardiac chest pain. 3. Morbid obesity. 4. Accelerated hypertension. 5. Anxiety Disorder 5. COPD Hydralazine fpr BP Clonidine for PRN 2D echo pending per cardio and Psych ua and U c/s Theodore Cardoza MD May 31, 2018 15:38
--- NOTE | 2018-05-31 15:52 | Cardiology Report ---
APPROVED REPORT EKG Measurement Heart [id number] Normal sinus rhythm Possible Left atrial enlargement Inferior infarct, age undetermined Anterior infarct, age undetermined Abnormal ECG
[2018-05-31] MEDS: HydrALAZINE 25mg tab ORAL SCH ×2 (17:45→23:46)
--- NOTE | 2018-05-31 19:30 | History and Physical Report ---
DATE OF ADMISSION: 05/30/2018 HISTORY OF PRESENT ILLNESS: The patient admitted for chest pain, rule out acute coronary syndrome. The patient is morbidly obese and has schizophrenia. The patient complains of chest pain, generalized pain, shortness of breath. Does have occasional cough. Denies wheezing. Denies orthopnea. Denies radiation of the chest pain. Denies fever or chills. PAST MEDICAL HISTORY: History of constipation, history of tinea cruris, depression, chronic venous stasis, lymphedema, morbid obesity, history of opiate dependence, history of chronic ulcer of the leg, history of nausea and vomiting, history of schizophrenia, hypertension, history of GERD, history of glaucoma, mood disorder. PAST SURGICAL HISTORY: Tonsillectomy, hysterectomy. ALLERGIES: To lactate, vancomycin, and Haldol. MEDICATIONS: Depakote, diltiazem, latanoprost, Protonix. FAMILY HISTORY: Noncontributory. SOCIAL HISTORY: History of smoking. No history of alcohol or illicit drugs. REVIEW OF SYSTEMS: HEENT: Denies headaches. RESPIRATORY: Reports shortness of breath and nonproductive cough for a couple of days. CARDIOVASCULAR: Reports chest pain for a couple of days. No radiation. No orthopnea. GASTROINTESTINAL: Does have heartburn. EXTREMITIES: Reports generalized pain allover. NEUROLOGIC: She has chronic senescent changes, in speech pattern, feels weak. PHYSICAL EXAMINATION: VITAL SIGNS: Temperature 98, pulse is 71, blood pressure 176/84. HEENT: PERRLA. NECK: Supple. No lymphadenopathy. CHEST: Clear to auscultation. CARDIOVASCULAR: Regular rate and rhythm. GASTROINTESTINAL: Distended. Positive bowel sounds. No organomegaly. She does have tinea cruris. EXTREMITIES: Lymphedema. She has some cellulitis in the left lower leg and also has a decubitus ulcer. For the detailed description of the wounds, please refer to the nursing notes. NEUROLOGIC: Oriented x2. She has generalized weakness. LABORATORY DATA: WBC of 5.4, hemoglobin 11.7, and platelets of 153,000. Sodium 144, potassium 4.2, BUN of 21, creatinine of 1, glucose of 119. ASSESSMENT/PLAN: Cellulitis, wound, rule out PVD, morbid obesity, chest pain, abdominal pain. I have asked Dr. Bearden, Dr. Haro, Dr. Victoria, Dr. Ballesteros, Dr. Alvarez, Dr. Jamie Ivy to see the patient for the above-mentioned diagnoses and treatment. Antibiotics per Dr. Jamie Ivy. Nima Bolden M.D. DR: Vic JOB#: [id number] CC:
--- NOTE | 2018-05-31 19:50 | NUR ---
NURSE NOTES: patient receive. patient in no acute distress at this time. patient complains of no pain at this time. patient alert and oriented x3. purik in place and suctioning. patient IV intact and asymptomatic. dressing wounds dry and intact. bed in lowest position and locked. call light within reach. will continue to monitor.
--- NOTE | 2018-05-31 20:55 | Cardiology Progress Note ---
Assessment/Plan Assessment/Plan The patient is seen and examined, full consult note is dictated. Objective Last 24 Hour Vital Signs Date Time Temp Pulse Resp B/P (MAP) Pulse Ox O2 Delivery O2 Flow Rate FiO2 05/31/18 17:45 168/88 05/31/18 16:00 64 05/31/18 16:00 97.1 68 18 164/84 (110) 98 05/31/18 13:19 69 162/88 05/31/18 12:00 65 05/31/18 12:00 96.3 68 18 164/88 (113) 94 05/31/18 11:00 Room Air 05/31/18 10:12 67 23 140/101 98 Nasal Cannula 2.0 05/31/18 09:41 66 20 154/64 99 Room Air 05/31/18 09:08 168/76 05/31/18 09:02 98.0 05/31/18 08:15 98.0 71 20 176/84 99 Room Air 21 05/31/18 07:44 72 174/71 05/31/18 05:40 98.0 70 19 168/73 97 Room Air 05/31/18 03:30 Room Air 05/31/18 03:16 98.2 75 23 140/98 96 Room Air 05/31/18 01:30 98.2 75 17 151/119 98 Room Air 05/30/18 23:30 98.3 72 16 199/77 98 Room Air 05/30/18 21:30 98.1 73 17 161/97 96 Room Air Intake and Output 05/30/18 05/31/18 19:00 07:00 Intake Total 240 ml Balance 240 ml Intake Oral 240 ml # Voids 1 Laboratory Tests Test 05/30/18 23:11 05/31/18 17:05 White Blood Count 5.4 K/UL (4.8-10.8) Red Blood Count 4.56 M/UL (4.20-5.40) Hemoglobin 11.7 G/DL (12.0-16.0) L Hematocrit 36.2 % (37.0-47.0) L Mean Corpuscular Volume 79 FL (80-99) L Mean Corpuscular Hemoglobin 25.7 PG (27.0-31.0) L Mean Corpuscular Hemoglobin Concent 32.3 G/DL (32.0-36.0) Red Cell Distribution Width 15.8 % (11.6-14.8) H Platelet Count 153 K/UL (150-450) Mean Platelet Volume 7.2 FL (6.5-10.1) Neutrophils (%) (Auto) 64.7 % (45.0-75.0) Lymphocytes (%) (Auto) 24.7 % (20.0-45.0) Monocytes (%) (Auto) 7.6 % (1.0-10.0) Eosinophils (%) (Auto) 2.3 % (0.0-3.0) Basophils (%) (Auto) 0.7 % (0.0-2.0) Sodium Level 144 MMOL/L (136-145) Potassium Level 4.2 MMOL/L (3.5-5.1) Chloride Level 106 MMOL/L (98-107) Carbon Dioxide Level 30 MMOL/L (21-32) Anion Gap 8 mmol/L (5-15) Blood Urea Nitrogen 21 mg/dL (7-18) H Creatinine 1.0 MG/DL (0.55-1.30) Estimat Glomerular Filtration Rate 55.7 mL/min (>60) Glucose Level 119 MG/DL (74-106) H Calcium Level 8.7 MG/DL (8.5-10.1) Total Bilirubin 0.4 MG/DL (0.2-1.0) Aspartate Amino Transf (AST/SGOT) 28 U/L (15-37) Alanine Aminotransferase (ALT/SGPT) 21 U/L (12-78) Alkaline Phosphatase 99 U/L (46-116) Troponin I 0.014 ng/mL (0.000-0.056) Total Protein 7.1 G/DL (6.4-8.2) Albumin 3.1 G/DL (3.4-5.0) L Globulin 4.0 g/dL Albumin/Globulin Ratio 0.8 (1.0-2.7) L Lipase 116 U/L (73-393) C-Reactive Protein, Quantitative 1.6 mg/dL (0.00-0.90) H Ulises Haro MD May 31, 2018 20:55
[2018-05-31] MEDS: Miralax 17gm pkt ORAL SCH (21:12)
--- NOTE | 2018-05-31 21:39 | General Progress Note ---
Progress Note Progress Note Patient seen and examined Morbid obesity Schizophrenia Narcotic dependent Bilateral leg lymph-venous edema with left leg cellulitis Feet warm with intact dopplers/ feet warm well perfused Rec Leg elevation Abx per ID Topical wound care and compression unna boot like dressing Leg non invasive duplex imaging Decub and DVT precautions Psych f/u d/w pt at length d/w nurse at bedside Chris Alvarez MD May 31, 2018 21:39
[2018-05-31] MEDS: Latanoprost 0.005% Opth 2.5ml Soln BOTH EYES SCH (22:40)
--- NOTE | 2018-05-31 23:00 | Consultation ---
DATE OF CONSULTATION: 05/31/2018 CARDIOLOGY CONSULTATION CONSULTING PHYSICIAN: Ulises Haro M.D. REFERRING PHYSICIAN: Nima Bolden M.D. REASON FOR CONSULTATION: Management of chest pain. HISTORY OF PRESENT ILLNESS: The patient is an very unfortunate 67-year-old lady, who presents to the hospital according to her for lymphedema of lower extremities as well as lower abdominal pain which is described as crampy. The patient has had also increased chest pain, worsened with cough. Cardiovascular history for the patient includes hypertension and history of tobacco use. At the time of arrival to the hospital, blood pressure was 191/102 mmHg and heart rate was 73. A 12-lead electrocardiogram was significant for sinus rhythm with possible old inferior wall infarct, QT prolongation at 472 millisecond as well as left ventricular hypertrophy. The patient was admitted to telemetry for further evaluation and management of bilateral lower extremity lymphedema as well as assessment and evaluation of chest pain. Cardiology consultation was made at request of Dr. Bolden for management of accelerated hypertension as well as chest pain. PAST MEDICAL HISTORY: 1. History of hypertension. 2. History of COPD. 3. History of gastroesophageal reflux disease. 4. History of cardiac problems. 5. History of lymphedema of lower extremities. MEDICATIONS: List of medications at home: 1. Lumigan one drop both eyes at bedtime. 2. Cardizem 60 mg q. 8 hours. 3. Depakote 500 mg twice daily. 4. Premarin 0.3 mg daily. 5. Latanoprost eye drops. 6. Protonix 40 mg p.o. daily. 7. Potassium chloride 20 mEq p.o. daily. ALLERGIES: Haloperidol and vancomycin. FAMILY HISTORY: No premature coronary artery disease in first-degree relatives. REVIEW OF SYSTEMS: HEENT: Denies any headache, diplopia, or blurred vision. CONSTITUTIONAL: Complains of generalized weakness. Denies any fever, chills, night sweats. CARDIOVASCULAR: Chest pain, worse with coughing. No shortness of breath. No PND or orthopnea. There is positive bilateral lower extremity lymphedema. No syncope. LUNGS: The patient has cough with pleuritic chest pain as well as shortness of breath, but no hemoptysis. GASTROINTESTINAL: Complaints of abdominal pain, but no GI bleed, nausea vomiting, diarrhea, constipation. NEUROLOGY: Denies any motor dysfunction, sensory deficit, or altered speech. MUSCULOSKELETAL: Trouble walking due to heaviness of lower extremities. PHYSICAL EXAMINATION: VITAL SIGNS: Blood pressure was 191/102, pulse of 73, respiratory rate of 15, temperature 98.2 degrees Fahrenheit, and O2 saturation 100% on room air. GENERAL: Morbidly obese lady chronically-ill, lethargic, demanding morphine at this time. HEENT: Atraumatic and normocephalic. Anicteric. Pupils are equal, round, and reactive to light and accommodation. NECK: JVP cannot be assessed due to morbid obesity. No carotid bruit. CVS: Normal S1, S2. Regular rate and rhythm. No murmurs, gallops, or rubs. PMI is at fourth intercostal space in the midclavicular. LUNGS: Diminished breath sounds in both bases. ABDOMEN: Distended. Due to obesity, cannot appreciate any hepatosplenomegaly. Positive bowel sounds. EXTREMITIES: There is 3 to 4+ bilateral lower extremity edema with the of the toes the inconsistency of the skin over the legs like the orange peel. LABORATORY FINDINGS: WBC 5.4, hemoglobin 11.7, hematocrit 36.2, and platelet count is 153. Sodium 144, potassium 4.2, chloride 106, bicarbonate 30, BUN of 21, creatinine 1.0, glucose is 119. Calcium is 8.7. Troponin I x1 is 0.014. Chest x-ray shows cardiomegaly with no pulmonary edema. ASSESSMENT/PLAN: The patient is a very unfortunate 67-year-old lady seen in Cardiology consultation. 1. Bilateral lower extremity lymphedema, it does not appear to be heparin induced condition. Compression stockings with high pressure about 25 to 30 mmHg is recommended. 2. Noncardiac chest pain. Chest pain is pleuritic more so with her cough. A 12-lead electrocardiogram does not show any evidence of ischemia. One troponin so far is within normal limits. We will obtain serial troponin-I levels and try to obtain 2D echocardiography for assessment of wall motion and LVEF. 3. Morbid obesity. 4. Accelerated hypertension. I would consider angiotensin receptor yves and hydralazine, Aldactone or thiazide diuretics also be a good consideration. I would not consider calcium channel yves given side effects of lower extremity edema. I would like to thank, Dr. Bolden, for allowing me to participate in the care of this patient. Ulises Haro M.D. DR: Abdifatah JOB#: [id number] CC:
[2018-06-01 04:00] VITALS: BP 118/59
[2018-06-01] MEDS: HydrALAZINE 25mg tab ORAL SCH ×2 (05:54→12:38)
--- NOTE | 2018-06-01 06:56 | NUR ---
HAND-OFF: Report given to demetri gilliam. misael in stable condition
--- NOTE | 2018-06-01 07:55 | NUR ---
NURSE NOTES: left a message to celsa sanchez GUEST SERVICE TEAM LEADER regarding patients refusal for egd. and patient is asking for breakfast.awaits callback and new order.
--- NOTE | 2018-06-01 07:58 | NUR ---
NURSE NOTES: received patient report from robinson mosquera. patient is onb ed awake, requesting breakfast and refusing egd procedure for today. SR on th emonitor. bed is low and locked. left a message to celsa sanchez GENETICS NURSE regarding patients refusal for the procedure.awaiting callback and new order from laura. will continue plan of care.
[2018-06-01 08:00] VITALS: BP 162/95
[2018-06-01 08:11] LABS: HEMATOCRIT 35.4 % (37.0-47.0); HEMOGLOBIN 11.1 G/DL (12.0-16.0); MEAN CORPUSCULAR VOLUME 82 FL (80-99); PLATELET COUNT 141 K/UL (150-450); RED BLOOD COUNT 4.33 M/UL (4.20-5.40); RED CELL DISTRIBUTION WIDTH 15.8 % (11.6-14.8); WHITE BLOOD COUNT 3.4 K/UL (4.8-10.8)
[2018-06-01 09:03] LABS: ALANINE AMINOTRANSFERASE 15 U/L (12-78); ALBUMIN 2.6 G/DL (3.4-5.0); ALBUMIN/GLOBULIN RATIO 0.7 (1.0-2.7); ALKALINE PHOSPHATASE 91 U/L (46-116); ANION GAP 8 mmol/L (5-15); ASPARTATE AMINO TRANSFERASE 13 U/L (15-37); BILIRUBIN,TOTAL 0.4 MG/DL (0.2-1.0); BLOOD UREA NITROGEN 15 mg/dL (7-18); CARBON DIOXIDE 29 MMOL/L (21-32); CHLORIDE 107 MMOL/L (98-107); CHOLESTEROL 113 MG/DL (< 200); CREATININE 0.9 MG/DL (0.55-1.30); FERRITIN 27 NG/ML (8-388); HDL CHOLESTEROL 37 MG/DL (40-60); POTASSIUM 3.7 MMOL/L (3.5-5.1); SODIUM 143 MMOL/L (136-145); TRIGLYCERIDES 137 MG/DL (30-150)
[2018-06-01 09:14] LABS: CREATINE KINASE 34 U/L (26-308); GAMMA GLUTAMYL TRANSPEPTIDASE 25 U/L (5-85); PHOSPHORUS 2.9 MG/DL (2.5-4.9)
[2018-06-01 09:41] LABS: % IRON SATURATION 11 % (15-50); IRON 30 ug/dL (50-175); TOTAL IRON BINDING CAPACITY 264 ug/dL (250-450)
--- NOTE | 2018-06-01 10:07 | NUR ---
NURSE NOTES: Silvia, spoke with pt regarding EGD pt refusing procedure and is asking for food tray. Per Wilder, cancel procedure. Will carry out.
--- NOTE | 2018-06-01 10:24 | GI Progress Note ---
Assessment/Plan Problems: (1) Schizophrenia ICD Codes: F20.9 - Schizophrenia, unspecified SNOMED: 38277037 (2) Opiate dependence (3) Abdominal pain ICD Codes: R10.9 - Abdominal pain SNOMED: 97477458 (4) Chest pain ICD Codes: R07.9 - Chest pain, unspecified SNOMED: 71129218 (5) Depression ICD Codes: F32.9 - Major depressive disorder, single episode, unspecified SNOMED: 98949204 (6) Anemia ICD Codes: D64.9 - Anemia, unspecified SNOMED: 731762973 (7) Constipation Status: unchanged Status Narrative Discussed with Dr. Victoria Assessment/Plan EGD canceled, patient refused. Resume diet Anemia workup reviewed, mild iron deficiency >> venofer OB stool r/o GI bleed monitor H&H, prn transfusions bowel regime ppi fu labs The patient was seen and examined at bedside and all new and available data was reviewed in the patients chart. I agree with the above findings, impression and plan. (Patient seen earlier today. Signature stamp does not reflect patient encounter time.). - Mervin Victoria MD Subjective Subjective Patient is now refusing procedure,demands breakfast Objective Last 24 Hour Vital Signs Date Time Temp Pulse Resp B/P (MAP) Pulse Ox O2 Delivery O2 Flow Rate FiO2 06/01/18 08:00 97.3 71 19 162/95 (117) 96 06/01/18 05:54 118/59 06/01/18 04:00 66 06/01/18 04:00 97.2 62 19 118/59 (78) 98 06/01/18 00:00 88 05/31/18 23:46 168/88 05/31/18 21:13 64 168/88 05/31/18 21:00 Room Air 05/31/18 20:00 65 05/31/18 20:00 67 18 184/94 (124) 93 05/31/18 17:45 168/88 05/31/18 16:00 64 05/31/18 16:00 97.1 68 18 164/84 (110) 98 05/31/18 13:19 69 162/88 05/31/18 12:00 65 05/31/18 12:00 96.3 68 18 164/88 (113) 94 05/31/18 11:00 Room Air Intake and Output 05/31/18 06/01/18 19:00 07:00 Intake Total 480 ml Output Total 300 ml Balance 480 ml -300 ml Intake Oral 480 ml Output Urine Total 300 ml # Voids 2 # Bowel Movements 1 Laboratory Tests Test 05/31/18 17:05 06/01/18 06:00 C-Reactive Protein, Quantitative 1.6 mg/dL (0.00-0.90) H White Blood Count 3.4 K/UL (4.8-10.8) L Red Blood Count 4.33 M/UL (4.20-5.40) Hemoglobin 11.1 G/DL (12.0-16.0) L Hematocrit 35.4 % (37.0-47.0) L Mean Corpuscular Volume 82 FL (80-99) Mean Corpuscular Hemoglobin 25.6 PG (27.0-31.0) L Mean Corpuscular Hemoglobin Concent 31.4 G/DL (32.0-36.0) L Red Cell Distribution Width 15.8 % (11.6-14.8) H Platelet Count 141 K/UL (150-450) L Mean Platelet Volume 7.2 FL (6.5-10.1) Neutrophils (%) (Auto) % (45.0-75.0) Lymphocytes (%) (Auto) % (20.0-45.0) Monocytes (%) (Auto) % (1.0-10.0) Eosinophils (%) (Auto) % (0.0-3.0) Basophils (%) (Auto) % (0.0-2.0) Neutrophils % (Manual) Pending Lymphocytes % (Manual) Pending Platelet Estimate Pending Platelet Morphology Pending Reticulocyte Count Pending Prothrombin Time 10.5 SEC (9.30-11.50) Prothromb Time International Ratio 1.0 (0.9-1.1) Activated Partial Thromboplast Time 27 SEC (23-33) Sodium Level 143 MMOL/L (136-145) Potassium Level 3.7 MMOL/L (3.5-5.1) Chloride Level 107 MMOL/L (98-107) Carbon Dioxide Level 29 MMOL/L (21-32) Anion Gap 8 mmol/L (5-15) Blood Urea Nitrogen 15 mg/dL (7-18) Creatinine 0.9 MG/DL (0.55-1.30) Estimat Glomerular Filtration Rate > 60 mL/min (>60) Glucose Level 96 MG/DL (74-106) Hemoglobin A1c 5.8 % (4.3-6.0) Uric Acid 9.7 MG/DL (2.6-7.2) H Calcium Level 8.0 MG/DL (8.5-10.1) L Phosphorus Level 2.9 MG/DL (2.5-4.9) Magnesium Level 2.1 MG/DL (1.8-2.4) Iron Level 30 ug/dL (50-175) L Total Iron Binding Capacity 264 ug/dL (250-450) Percent Iron Saturation 11 % (15-50) L Unsaturated Iron Binding 234 ug/dL (112-346) Ferritin 27 NG/ML (8-388) Total Bilirubin 0.4 MG/DL (0.2-1.0) Gamma Glutamyl Transpeptidase 25 U/L (5-85) Aspartate Amino Transf (AST/SGOT) 13 U/L (15-37) L Alanine Aminotransferase (ALT/SGPT) 15 U/L (12-78) Alkaline Phosphatase 91 U/L (46-116) Total Creatine Kinase 34 U/L (26-308) Pro-B-Type Natriuretic Peptide 526 pg/mL (0-125) H Total Protein 6.4 G/DL (6.4-8.2) Albumin 2.6 G/DL (3.4-5.0) L Globulin 3.8 g/dL Albumin/Globulin Ratio 0.7 (1.0-2.7) L Triglycerides Level 137 MG/DL (30-150) Cholesterol Level 113 MG/DL (< 200) LDL Cholesterol 55 mg/dL (<100) HDL Cholesterol 37 MG/DL (40-60) L Cholesterol/HDL Ratio 3.1 (3.3-4.4) L Carcinoembryonic Antigen Pending Vitamin B12 Level 382 PG/ML (193-986) Folate 10.1 NG/ML (8.6-58.9) Thyroid Stimulating Hormone (TSH) 1.247 uiU/mL (0.358-3.740) Free Thyroxine 1.43 NG/DL (0.76-1.46) Height (Feet): 5 Height (Inches): 9.00 Weight (Pounds): 300 General Appearance: WD/WN, no apparent distress, alert, morbidly obese Cardiovascular: normal rate Respiratory/Chest: normal breath sounds, no respiratory distress Abdominal Exam: normal bowel sounds, non tender, soft Extremities: non-tender Giovanni Winston NP Jun 01, 2018 10:24
[2018-06-01] MEDS: Docusate 100mg cap ORAL SCH ×3 (10:46→17:43)
[2018-06-01] MEDS: Spironolactone 25mg tab ORAL SCH (10:47)
--- NOTE | 2018-06-01 10:57 | General Progress Note ---
Assessment/Plan Problem List: (1) Schizophrenia ICD Codes: F20.9 - Schizophrenia, unspecified SNOMED: 04840326 (2) Opiate dependence Status: unchanged Assessment/Plan Depakote 750mg po bid Risperdal 4mg po qhs Avoid pain meds the pt has dependence to Morphine The pt has capacity to refuse meds. Subjective Neurologic/Psychiatric: Reports: anxiety, depressed, emotional problems Allergies: Coded Allergies: HALOPERIDOL (Verified Allergy, Unknown, 01/28/09) HALOPERIDOL LACTATE (Unverified Allergy, Unknown, 07/30/16) VANCOMYCIN (Unverified Adverse Reaction, Intermediate, Shortness of Breath , 06/26/13) Subjective The pt is agitated and refusing the procedures. the pt has pain med seeking behavior. the pt is depressed and angry. The pt stated that she does not want any procedure because this is her body and she could refuse anything she wants to. Objective Last 24 Hour Vital Signs Date Time Temp Pulse Resp B/P (MAP) Pulse Ox O2 Delivery O2 Flow Rate FiO2 06/01/18 08:00 97.3 71 19 162/95 (117) 96 06/01/18 05:54 118/59 06/01/18 04:00 66 06/01/18 04:00 97.2 62 19 118/59 (78) 98 06/01/18 00:00 88 05/31/18 23:46 168/88 05/31/18 21:13 64 168/88 05/31/18 21:00 Room Air 05/31/18 20:00 65 05/31/18 20:00 67 18 184/94 (124) 93 05/31/18 17:45 168/88 05/31/18 16:00 64 05/31/18 16:00 97.1 68 18 164/84 (110) 98 05/31/18 13:19 69 162/88 05/31/18 12:00 65 05/31/18 12:00 96.3 68 18 164/88 (113) 94 05/31/18 11:00 Room Air Intake and Output 05/31/18 06/01/18 19:00 07:00 Intake Total 480 ml Output Total 300 ml Balance 480 ml -300 ml Intake Oral 480 ml Output Urine Total 300 ml # Voids 2 # Bowel Movements 1 Laboratory Tests 05/31/18 17:05: C-Reactive Protein, Quantitative 1.6H 06/01/18 06:00: White Blood Count 3.4L, Red Blood Count 4.33, Hemoglobin 11.1L, Hematocrit 35.4L , Mean Corpuscular Volume 82, Mean Corpuscular Hemoglobin 25.6L, Mean Corpuscular Hemoglobin Concent 31.4L, Red Cell Distribution Width 15.8H, Platelet Count 141L, Mean Platelet Volume 7.2, Neutrophils (%) (Auto) , Lymphocytes (%) (Auto) , Monocytes (%) (Auto) , Eosinophils (%) (Auto) , Basophils (%) (Auto) , Differential Total Cells Counted 100, Neutrophils % ( Manual) 56, Lymphocytes % (Manual) 38, Monocytes % (Manual) 5, Eosinophils % ( Manual) 1, Basophils % (Manual) 0, Band Neutrophils 0, Platelet Estimate DecreasedL, Platelet Morphology Normal, Anisocytosis 1+, Reticulocyte Count [ Pending], Prothrombin Time 10.5, Prothromb Time International Ratio 1.0, Activated Partial Thromboplast Time 27, Sodium Level 143, Potassium Level 3.7, Chloride Level 107, Carbon Dioxide Level 29, Anion Gap 8, Blood Urea Nitrogen 15 , Creatinine 0.9, Estimat Glomerular Filtration Rate > 60, Glucose Level 96, Hemoglobin A1c 5.8, Uric Acid 9.7H, Calcium Level 8.0L, Phosphorus Level 2.9, Magnesium Level 2.1, Iron Level 30L, Total Iron Binding Capacity 264, Percent Iron Saturation 11L, Unsaturated Iron Binding 234, Ferritin 27, Total Bilirubin 0.4, Gamma Glutamyl Transpeptidase 25, Aspartate Amino Transf (AST/SGOT) 13L, Alanine Aminotransferase (ALT/SGPT) 15, Alkaline Phosphatase 91, Total Creatine Kinase 34, Pro-B-Type Natriuretic Peptide 526H, Total Protein 6.4, Albumin 2.6L , Globulin 3.8, Albumin/Globulin Ratio 0.7L, Triglycerides Level 137, Cholesterol Level 113, LDL Cholesterol 55, HDL Cholesterol 37L, Cholesterol/HDL Ratio 3.1L, Carcinoembryonic Antigen [Pending], Vitamin B12 Level 382, Folate 10.1, Thyroid Stimulating Hormone (TSH) 1.247, Free Thyroxine 1.43 Height (Feet): 5 Height (Inches): 9.00 Weight (Pounds): 300 General Appearance: alert, agitated, combative, morbidly obese Neurologic: oriented x 3, responsive, depressed affect Harris Ballesteros MD Jun 01, 2018 10:57
[2018-06-01 12:00] VITALS: BP 173/77
--- NOTE | 2018-06-01 12:32 | General Progress Note ---
Assessment/Plan Problem List: (1) Anemia ICD Codes: D64.9 - Anemia, unspecified SNOMED: 542331917 (2) Depression ICD Codes: F32.9 - Major depressive disorder, single episode, unspecified SNOMED: 24477459 (3) Opiate dependence (4) Cough ICD Codes: R05 - Cough SNOMED: 49504430 (5) Schizophrenia ICD Codes: F20.9 - Schizophrenia, unspecified SNOMED: 22899064 (6) Sepsis ICD Codes: A41.9 - Sepsis, unspecified organism SNOMED: 10778045 (7) GERD (gastroesophageal reflux disease) ICD Codes: K21.9 - Gastro-esophageal reflux disease without esophagitis SNOMED: 100862641 (8) Nausea ICD Codes: R11.0 - Nausea SNOMED: 106374194 (9) Left leg cellulitis ICD Codes: L03.116 - Cellulitis of left lower limb SNOMED: 340516476 Status: progressing Assessment/Plan sepsis cellulitis of leg afebrile obesity paranoid abx per id Subjective ROS Limited/Unobtainable: Yes Allergies: Coded Allergies: HALOPERIDOL (Verified Allergy, Unknown, 01/28/09) HALOPERIDOL LACTATE (Unverified Allergy, Unknown, 07/30/16) VANCOMYCIN (Unverified Adverse Reaction, Intermediate, Shortness of Breath , 06/26/13) Objective Last 24 Hour Vital Signs Date Time Temp Pulse Resp B/P (MAP) Pulse Ox O2 Delivery O2 Flow Rate FiO2 06/01/18 10:46 162/95 06/01/18 09:00 Room Air 06/01/18 08:00 97.3 71 19 162/95 (117) 96 06/01/18 07:23 70 06/01/18 05:54 118/59 06/01/18 04:00 66 06/01/18 04:00 97.2 62 19 118/59 (78) 98 06/01/18 00:00 88 05/31/18 23:46 168/88 05/31/18 21:13 64 168/88 05/31/18 21:00 Room Air 05/31/18 20:00 65 05/31/18 20:00 67 18 184/94 (124) 93 05/31/18 17:45 168/88 05/31/18 16:00 64 05/31/18 16:00 97.1 68 18 164/84 (110) 98 05/31/18 13:19 69 162/88 Intake and Output 05/31/18 06/01/18 19:00 07:00 Intake Total 480 ml Output Total 300 ml Balance 480 ml -300 ml Intake Oral 480 ml Output Urine Total 300 ml # Voids 2 # Bowel Movements 1 Laboratory Tests 05/31/18 17:05: C-Reactive Protein, Quantitative 1.6H 06/01/18 06:00: White Blood Count 3.4L, Red Blood Count 4.33, Hemoglobin 11.1L, Hematocrit 35.4L , Mean Corpuscular Volume 82, Mean Corpuscular Hemoglobin 25.6L, Mean Corpuscular Hemoglobin Concent 31.4L, Red Cell Distribution Width 15.8H, Platelet Count 141L, Mean Platelet Volume 7.2, Neutrophils (%) (Auto) , Lymphocytes (%) (Auto) , Monocytes (%) (Auto) , Eosinophils (%) (Auto) , Basophils (%) (Auto) , Differential Total Cells Counted 100, Neutrophils % ( Manual) 56, Lymphocytes % (Manual) 38, Monocytes % (Manual) 5, Eosinophils % ( Manual) 1, Basophils % (Manual) 0, Band Neutrophils 0, Platelet Estimate DecreasedL, Platelet Morphology Normal, Anisocytosis 1+, Reticulocyte Count [ Pending], Prothrombin Time 10.5, Prothromb Time International Ratio 1.0, Activated Partial Thromboplast Time 27, Sodium Level 143, Potassium Level 3.7, Chloride Level 107, Carbon Dioxide Level 29, Anion Gap 8, Blood Urea Nitrogen 15 , Creatinine 0.9, Estimat Glomerular Filtration Rate > 60, Glucose Level 96, Hemoglobin A1c 5.8, Uric Acid 9.7H, Calcium Level 8.0L, Phosphorus Level 2.9, Magnesium Level 2.1, Iron Level 30L, Total Iron Binding Capacity 264, Percent Iron Saturation 11L, Unsaturated Iron Binding 234, Ferritin 27, Total Bilirubin 0.4, Gamma Glutamyl Transpeptidase 25, Aspartate Amino Transf (AST/SGOT) 13L, Alanine Aminotransferase (ALT/SGPT) 15, Alkaline Phosphatase 91, Total Creatine Kinase 34, Pro-B-Type Natriuretic Peptide 526H, Total Protein 6.4, Albumin 2.6L , Globulin 3.8, Albumin/Globulin Ratio 0.7L, Triglycerides Level 137, Cholesterol Level 113, LDL Cholesterol 55, HDL Cholesterol 37L, Cholesterol/HDL Ratio 3.1L, Carcinoembryonic Antigen [Pending], Vitamin B12 Level 382, Folate 10.1, Thyroid Stimulating Hormone (TSH) 1.247, Free Thyroxine 1.43 Height (Feet): 5 Height (Inches): 9.00 Weight (Pounds): 300 Neck: supple Cardiovascular: normal rate Respiratory/Chest: lungs clear Abdomen: soft Nima Bolden MD Jun 01, 2018 12:32
--- NOTE | 2018-06-01 13:12 | NUR ---
CASE MANAGEMENT:REVIEW 05/31/18 66 YR OLD FEMALE [facility]IB[facility] CC: SOB. CHEST PAIN.HIP PAIN. ABD PAIN SI: ACS 98.3 73 15 191/102 100% ON RA PLT-141 TROPONIN(-) IS: DUONEB HHN BENTYL PO MYLANTA PO CARDIZEM PO ; TO TELEMETRY UNIT 06/01/18 SI: ATYPICAL CHEST PAIN. GERD. EMESIS LLE CELLULITIS 97.3 78 20 173/77 97% ON RA H/H-11.1/35.4 PLT-141 IS: RISPERDAL PO QHS DEPAKOTE PO BID ALDACTONE PO QD AVAPRO PO QD HYDRALAZINE PO Q6HRS NORCO PO Q4HRS : TELEMETRY STATUS DCP: [facility] IS [facility]
--- NOTE | 2018-06-01 14:12 | NUR ---
NURSE NOTES: no iv line, dr yandel silva is aware. refused wound picture, refused wound care. will continue to monitor.
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
--- NOTE | 2018-06-01 14:38 | NUR ---
Social Service Note SW met with patient to assess for homelessness. Patient is alert, oriented and verbally responsive. Patient was a detention resident of [facility]. Patient recently signed out of facility AMA with no housing plan and returned to the streets. Prior to SNF stay patient had a long history of homelessness. Patient was seen in ER on 05/26 and 05/28 and didn't request homeless placement or continued service. Patient indicated being hospitalized at [facility] [phone]. Patient cannot recall the dates of services and options for discharge placement. Patient states she returned to the streets. Patient states she has no source of income due to prolonged stay in SNF. Patient currently indicating inability to care for self and requesting SNF placement. SW indicated she will be medically evaluated to determine ability to obtain authorization from insurance for placement. SW will also contact homeless service providers. Will continue to monitor. GREER left a message for the SW at [facility] to determine the course of care in their facility.
[2018-06-01 16:00] VITALS: BP 161/77
[2018-06-01] MEDS ORDERED: Iron Sucrose 200 MG in NS 110 ML IV ONE (16:00)
[2018-06-01] MEDS: Norco 5mg/325mg tab ORAL PRN (16:10)
--- NOTE | 2018-06-01 16:18 | Consultation ---
History of Present Illness General Date patient seen: Jun 01, 2018 Present Illness Allergies: Coded Allergies: HALOPERIDOL (Verified Allergy, Unknown, 01/28/09) HALOPERIDOL LACTATE (Unverified Allergy, Unknown, 07/30/16) VANCOMYCIN (Unverified Adverse Reaction, Intermediate, Shortness of Breath , 06/26/13) Medication History Scheduled Bimatoprost (Lumigan), 1 DROP BOTH EYES HS, (Reported) Diltiazem Hcl* (Cardizem*), 60 MG ORAL EVERY 8 HOURS, (Reported) Divalproex Sodium* (Depakote*), 500 MG PO BID, (Reported) Estrogens Conjugated (Premarin), 0.3 MG ORAL DAILY, (Reported) Latanoprost/Pf (Latanoprost 0.005% Eye Drop), 1 DROP OP DAILY, (Reported) Pantoprazole* (Protonix*), 40 MG ORAL DAILY, (Reported) Miscellaneous Medications Potassium Chloride (Potassium Chloride), 20 MEQ PO, (Reported) Unable to Obtain Medications (Unable To Obtain Meds), (Reported) Patient History Healthcare decision maker Resuscitation status Advanced Directive on File Physical Exam Last 24 Hour Vital Signs Date Time Temp Pulse Resp B/P (MAP) Pulse Ox O2 Delivery O2 Flow Rate FiO2 06/01/18 16:00 97.3 71 19 161/77 (105) 97 06/01/18 12:38 173/77 06/01/18 12:00 96 06/01/18 12:00 97.3 78 20 173/77 (109) 97 06/01/18 10:46 162/95 06/01/18 09:00 Room Air 06/01/18 08:00 97.3 71 19 162/95 (117) 96 06/01/18 07:23 70 06/01/18 05:54 118/59 06/01/18 04:00 66 06/01/18 04:00 97.2 62 19 118/59 (78) 98 06/01/18 00:00 88 05/31/18 23:46 168/88 05/31/18 21:13 64 168/88 05/31/18 21:00 Room Air 05/31/18 20:00 65 05/31/18 20:00 67 18 184/94 (124) 93 05/31/18 17:45 168/88 Intake and Output 05/31/18 06/01/18 19:00 07:00 Intake Total 480 ml Output Total 300 ml Balance 480 ml -300 ml Intake Oral 480 ml Output Urine Total 300 ml # Voids 2 # Bowel Movements 1 Laboratory Tests Test 05/31/18 17:05 06/01/18 06:00 C-Reactive Protein, Quantitative 1.6 mg/dL (0.00-0.90) H White Blood Count 3.4 K/UL (4.8-10.8) L Red Blood Count 4.33 M/UL (4.20-5.40) Hemoglobin 11.1 G/DL (12.0-16.0) L Hematocrit 35.4 % (37.0-47.0) L Mean Corpuscular Volume 82 FL (80-99) Mean Corpuscular Hemoglobin 25.6 PG (27.0-31.0) L Mean Corpuscular Hemoglobin Concent 31.4 G/DL (32.0-36.0) L Red Cell Distribution Width 15.8 % (11.6-14.8) H Platelet Count 141 K/UL (150-450) L Mean Platelet Volume 7.2 FL (6.5-10.1) Neutrophils (%) (Auto) % (45.0-75.0) Lymphocytes (%) (Auto) % (20.0-45.0) Monocytes (%) (Auto) % (1.0-10.0) Eosinophils (%) (Auto) % (0.0-3.0) Basophils (%) (Auto) % (0.0-2.0) Differential Total Cells Counted 100 Neutrophils % (Manual) 56 % (45-75) Lymphocytes % (Manual) 38 % (20-45) Monocytes % (Manual) 5 % (1-10) Eosinophils % (Manual) 1 % (0-3) Basophils % (Manual) 0 % (0-2) Band Neutrophils 0 % (0-8) Platelet Estimate Decreased L Platelet Morphology Normal Anisocytosis 1+ Reticulocyte Count 0.6 % (0.0-2.0) Prothrombin Time 10.5 SEC (9.30-11.50) Prothromb Time International Ratio 1.0 (0.9-1.1) Activated Partial Thromboplast Time 27 SEC (23-33) Sodium Level 143 MMOL/L (136-145) Potassium Level 3.7 MMOL/L (3.5-5.1) Chloride Level 107 MMOL/L (98-107) Carbon Dioxide Level 29 MMOL/L (21-32) Anion Gap 8 mmol/L (5-15) Blood Urea Nitrogen 15 mg/dL (7-18) Creatinine 0.9 MG/DL (0.55-1.30) Estimat Glomerular Filtration Rate > 60 mL/min (>60) Glucose Level 96 MG/DL (74-106) Hemoglobin A1c 5.8 % (4.3-6.0) Uric Acid 9.7 MG/DL (2.6-7.2) H Calcium Level 8.0 MG/DL (8.5-10.1) L Phosphorus Level 2.9 MG/DL (2.5-4.9) Magnesium Level 2.1 MG/DL (1.8-2.4) Iron Level 30 ug/dL (50-175) L Total Iron Binding Capacity 264 ug/dL (250-450) Percent Iron Saturation 11 % (15-50) L Unsaturated Iron Binding 234 ug/dL (112-346) Ferritin 27 NG/ML (8-388) Total Bilirubin 0.4 MG/DL (0.2-1.0) Gamma Glutamyl Transpeptidase 25 U/L (5-85) Aspartate Amino Transf (AST/SGOT) 13 U/L (15-37) L Alanine Aminotransferase (ALT/SGPT) 15 U/L (12-78) Alkaline Phosphatase 91 U/L (46-116) Total Creatine Kinase 34 U/L (26-308) Pro-B-Type Natriuretic Peptide 526 pg/mL (0-125) H Total Protein 6.4 G/DL (6.4-8.2) Albumin 2.6 G/DL (3.4-5.0) L Globulin 3.8 g/dL Albumin/Globulin Ratio 0.7 (1.0-2.7) L Triglycerides Level 137 MG/DL (30-150) Cholesterol Level 113 MG/DL (< 200) LDL Cholesterol 55 mg/dL (<100) HDL Cholesterol 37 MG/DL (40-60) L Cholesterol/HDL Ratio 3.1 (3.3-4.4) L Carcinoembryonic Antigen Pending Vitamin B12 Level 382 PG/ML (193-986) Folate 10.1 NG/ML (8.6-58.9) Thyroid Stimulating Hormone (TSH) 1.247 uiU/mL (0.358-3.740) Free Thyroxine 1.43 NG/DL (0.76-1.46) Height (Feet): 5 Height (Inches): 9.00 Weight (Pounds): 300 Medications Current Medications Medications (Trade) Dose Ordered Sig/Shiraz Route PRN Reason Start Time Stop Time Status Last Admin Dose Admin Acetaminophen (Tylenol) 650 mg Q4H PRN ORAL Mild Pain/Temp > 100.5 05/31/18 01:00 06/30/18 00:59 05/31/18 08:32 Acetaminophen/ Hydrocodone Bitart ([place] 5/325) 1 tab Q4H PRN ORAL Moderate Pain (Pain Scale 4-6) 05/31/18 14:00 06/07/18 13:59 06/01/18 16:10 Cephalexin (Keflex) 500 mg Q6HR ORAL 06/01/18 18:00 06/08/18 17:59 Clonidine HCl (Catapres Tab) 0.1 mg Q4H PRN ORAL bp over 165 syst 06/01/18 14:45 07/01/18 14:44 Clotrimazole (Lotrimin) 1 applic BID TOPIC 06/01/18 18:00 07/01/18 17:59 Divalproex Sodium (Depakote) 750 mg BID ORAL 06/01/18 18:00 07/01/18 17:59 Docusate Sodium (Colace) 100 mg THREE TIMES A DAY ORAL 05/31/18 13:00 06/30/18 12:59 06/01/18 12:38 Doxycycline Monohydrate (Vibramycin) 100 mg EVERY 12 HOURS ORAL 06/01/18 21:00 06/08/18 20:59 Hydralazine HCl (Apresoline) 50 mg Q8HR ORAL 06/01/18 22:00 06/30/18 17:59 Irbesartan (Avapro) 75 mg DAILY ORAL 06/01/18 09:00 07/01/18 08:59 06/01/18 10:46 Iron Sucrose 200 mg/Sodium Chloride 120 ml @ 240 mls/hr ONCE ONCE IV 06/01/18 16:00 06/01/18 16:29 Latanoprost (Xalatan) 1 drop BEDTIME BOTH EYES 05/31/18 21:00 06/30/18 20:59 05/31/18 22:40 Ondansetron HCl (Zofran) 4 mg Q6H PRN IVP Nausea & Vomiting 05/31/18 12:00 06/30/18 11:59 Pantoprazole (Protonix) 40 mg Q12HR ORAL 06/01/18 21:00 06/30/18 08:59 Patient Own Medication (Patient's Own Med) 1 ea BID TOPIC 05/31/18 18:00 06/30/18 17:59 06/01/18 10:48 Polyethylene Glycol (Miralax) 17 gm BEDTIME ORAL 05/31/18 21:00 06/30/18 20:59 05/31/18 21:12 Potassium Chloride (K-Dur) 20 meq DAILY ORAL 05/31/18 09:00 06/30/18 08:59 05/31/18 09:01 Risperidone (RisperDAL) 4 mg BEDTIME ORAL 06/01/18 21:00 07/01/18 20:59 Spironolactone (Aldactone) 25 mg DAILY ORAL 06/01/18 09:00 07/01/18 08:59 06/01/18 10:47 Assessment/Plan Assessment/Plan (1) Left LE pain (2) Left LE Cellulitis (3) Lymphedema seen dictated. Jordon Julio Jun 01, 2018 16:17
[2018-06-01] MEDS: Cephalexin 500mg cap ORAL SCH (17:43)
[2018-06-01 18:56] LABS: APPEARANCE,URINE CLOUDY; COLOR,URINE YELLOW
[2018-06-01 18:57] LABS: BILIRUBIN, URINE NEGATIVE (NEGATIVE); GLUCOSE, URINE (UA) NEGATIVE (NEGATIVE); KETONES,URINE NEGATIVE (NEGATIVE); LEUKOCYTE ESTERASE ,URINE 3+ (NEGATIVE); NITRITE,URINE POSITIVE (NEGATIVE); PH,URINE 7 (4.5-8.0); PROTEIN,URINE 1+ (NEGATIVE); UROBILINOGEN,URINE NORMAL MG/DL (0.0-1.0)
[2018-06-01 19:19] VITALS: BP 138/76
--- NOTE | 2018-06-01 19:23 | NUR ---
NURSE NOTES: pt. asking for oxygen 2L for comfort.
--- NOTE | 2018-06-01 19:45 | NUR ---
NURSE NOTES: Received pt from Erica, pt in bed resting comfortably. no s/s of acute distress. falling precaution in place will continue to monitor.
--- NOTE | 2018-06-01 19:46 | NUR ---
HAND-OFF: Report given to cristiano mosquera.
--- NOTE | 2018-06-01 20:26 | NUR ---
NURSE NOTES: Patient is strongly refusing physical assessment at this time and yelling, "Don't touch me!" Risks and benefits explained x3; still adamantly refusing.
--- NOTE | 2018-06-01 20:30 | NUR ---
NURSE NOTES: pt refusing physical assessment. refusing wound assessment. education provided about risk and benefits for wound care pt still refused. pt verbalized " just come when I call you"
[2018-06-01] MEDS: Latanoprost 0.005% Opth 2.5ml Soln BOTH EYES SCH (21:00)
[2018-06-01] MEDS: Miralax 17gm pkt ORAL SCH (21:00)
[2018-06-01] MEDS: HydrALAZINE 50mg tab ORAL SCH (21:28)
--- NOTE | 2018-06-01 22:30 | Consultation ---
DATE OF CONSULTATION: 06/01/2018 INFECTIOUS DISEASES CONSULTATION CONSULTING PHYSICIAN: Jamie Ivy M.D. PRIMARY ATTENDING PHYSICIAN: Nima Bolden M.D. HISTORY OF PRESENT ILLNESS: The patient is a 67-year-old white female who is a detention resident admitted on 05/30/2018 complaining of chest and abdominal pain. In addition, the patient has chronic wound in lower extremity, especially in the left side. PAST MEDICAL HISTORY: Significant for hypertension, COPD, morbid obesity, paranoid schizophrenia, opiate dependence, venous stasis ALLERGY: Allergic to haloperidol and vancomycin. MEDICATIONS: Getting Risperdal, Depakote, Xalatan eye drops, MiraLAX, hydralazine, [place], Colace, Zofran, potassium chloride, Protonix, Tylenol. SOCIAL HISTORY: skilled nursing resident. Denies alcohol, drug abuse, or smoking. . REVIEW OF SYSTEMS: The patient has no complaints except pain in the lower extremity, cannot walk. PHYSICAL EXAMINATION: VITAL SIGNS: Temperature 97.3, pulse 78, blood pressure 173/77. GENERAL APPEARANCE: Seems to be obese. HEAD AND NECK: [place] conjunctiva. HEART: Normal rate. LUNGS: Clear. ABDOMEN: Soft and nontender. EXTREMITIES: Bilateral edema of lower extremities, has dressing in the left lower extremity, erythema and tenderness in the right lower extremity patient dosen't left opening of the dressing. NEUROLOGIC: Awake and alert. LABORATORY AND DIAGNOSTIC DATA: WBC 3.4, hemoglobin 11.1, hematocrit 35.4, platelet 141. Sodium 143, potassium 3.7, chloride 107, bicarbonate 29, BUN 15, creatinine 0.9, glucose 96, albumin 2.6. Chest x-ray showed cardiomegaly, no acute process. IMPRESSION: Leg cellulitis, more on the left side. The patient seems to have stasis dermatitis, chronic lymphedema of legs, hypertension, COPD, schizophrenia, opioid dependence. RECOMMENDATION: Start IV cefazolin and p.o. doxycycline and candidal rash of breast fold ;will add clotrimazole. We will follow up the labs and re-examine the patient's left leg. At the end of my exam, I thank Dr. Bolden, for involving me in the care of this patient. Jamie Ankita Ivy DR: Penny JOB#: [id number] CC: [email or web address]
--- NOTE | 2018-06-01 23:44 | Cardiology Progress Note ---
Assessment/Plan Assessment/Plan 1. Bilateral lower extremity lymphedema, compression stockings with high pressure ~25 to 30 mmHg is recommended. 2. Noncardiac chest pain. Chest pain is pleuritic more so with her cough. A 12-lead electrocardiogram does not show any evidence of ischemia. Negative troponin levels. 3. Morbid obesity. 4. Accelerated hypertension, continue hydralazine, aldactone and Irbesartan. Subjective Subjective Sinus rhythm at rate of 71. Objective Last 24 Hour Vital Signs Date Time Temp Pulse Resp B/P (MAP) Pulse Ox O2 Delivery O2 Flow Rate FiO2 06/01/18 21:28 130/76 06/01/18 19:19 138/76 (96) 78 06/01/18 16:00 97.3 71 19 161/77 (105) 97 06/01/18 15:27 72 06/01/18 12:38 173/77 06/01/18 12:00 96 06/01/18 12:00 97.3 78 20 173/77 (109) 97 06/01/18 10:46 162/95 06/01/18 09:00 Room Air 06/01/18 08:00 97.3 71 19 162/95 (117) 96 06/01/18 07:23 70 06/01/18 05:54 118/59 06/01/18 04:00 66 06/01/18 04:00 97.2 62 19 118/59 (78) 98 06/01/18 00:00 88 05/31/18 23:46 168/88 Intake and Output 05/31/18 06/01/18 19:00 07:00 Intake Total 480 ml Output Total 300 ml Balance 480 ml -300 ml Intake Oral 480 ml Output Urine Total 300 ml # Voids 2 # Bowel Movements 1 Laboratory Tests Test 06/01/18 06:00 06/01/18 17:25 White Blood Count 3.4 K/UL (4.8-10.8) L Red Blood Count 4.33 M/UL (4.20-5.40) Hemoglobin 11.1 G/DL (12.0-16.0) L Hematocrit 35.4 % (37.0-47.0) L Mean Corpuscular Volume 82 FL (80-99) Mean Corpuscular Hemoglobin 25.6 PG (27.0-31.0) L Mean Corpuscular Hemoglobin Concent 31.4 G/DL (32.0-36.0) L Red Cell Distribution Width 15.8 % (11.6-14.8) H Platelet Count 141 K/UL (150-450) L Mean Platelet Volume 7.2 FL (6.5-10.1) Neutrophils (%) (Auto) % (45.0-75.0) Lymphocytes (%) (Auto) % (20.0-45.0) Monocytes (%) (Auto) % (1.0-10.0) Eosinophils (%) (Auto) % (0.0-3.0) Basophils (%) (Auto) % (0.0-2.0) Differential Total Cells Counted 100 Neutrophils % (Manual) 56 % (45-75) Lymphocytes % (Manual) 38 % (20-45) Monocytes % (Manual) 5 % (1-10) Eosinophils % (Manual) 1 % (0-3) Basophils % (Manual) 0 % (0-2) Band Neutrophils 0 % (0-8) Platelet Estimate Decreased L Platelet Morphology Normal Anisocytosis 1+ Reticulocyte Count 0.6 % (0.0-2.0) Prothrombin Time 10.5 SEC (9.30-11.50) Prothromb Time International Ratio 1.0 (0.9-1.1) Activated Partial Thromboplast Time 27 SEC (23-33) Sodium Level 143 MMOL/L (136-145) Potassium Level 3.7 MMOL/L (3.5-5.1) Chloride Level 107 MMOL/L (98-107) Carbon Dioxide Level 29 MMOL/L (21-32) Anion Gap 8 mmol/L (5-15) Blood Urea Nitrogen 15 mg/dL (7-18) Creatinine 0.9 MG/DL (0.55-1.30) Estimat Glomerular Filtration Rate > 60 mL/min (>60) Glucose Level 96 MG/DL (74-106) Hemoglobin A1c 5.8 % (4.3-6.0) Uric Acid 9.7 MG/DL (2.6-7.2) H Calcium Level 8.0 MG/DL (8.5-10.1) L Phosphorus Level 2.9 MG/DL (2.5-4.9) Magnesium Level 2.1 MG/DL (1.8-2.4) Iron Level 30 ug/dL (50-175) L Total Iron Binding Capacity 264 ug/dL (250-450) Percent Iron Saturation 11 % (15-50) L Unsaturated Iron Binding 234 ug/dL (112-346) Ferritin 27 NG/ML (8-388) Total Bilirubin 0.4 MG/DL (0.2-1.0) Gamma Glutamyl Transpeptidase 25 U/L (5-85) Aspartate Amino Transf (AST/SGOT) 13 U/L (15-37) L Alanine Aminotransferase (ALT/SGPT) 15 U/L (12-78) Alkaline Phosphatase 91 U/L (46-116) Total Creatine Kinase 34 U/L (26-308) Pro-B-Type Natriuretic Peptide 526 pg/mL (0-125) H Total Protein 6.4 G/DL (6.4-8.2) Albumin 2.6 G/DL (3.4-5.0) L Globulin 3.8 g/dL Albumin/Globulin Ratio 0.7 (1.0-2.7) L Triglycerides Level 137 MG/DL (30-150) Cholesterol Level 113 MG/DL (< 200) LDL Cholesterol 55 mg/dL (<100) HDL Cholesterol 37 MG/DL (40-60) L Cholesterol/HDL Ratio 3.1 (3.3-4.4) L Carcinoembryonic Antigen Pending Vitamin B12 Level 382 PG/ML (193-986) Folate 10.1 NG/ML (8.6-58.9) Thyroid Stimulating Hormone (TSH) 1.247 uiU/mL (0.358-3.740) Free Thyroxine 1.43 NG/DL (0.76-1.46) Urine Color Yellow Urine Appearance Cloudy Urine pH 7 (4.5-8.0) Urine Specific [place] 1.010 (1.005-1.035) Urine Protein 1+ (NEGATIVE) H Urine Glucose (UA) Negative (NEGATIVE) Urine Ketones Negative (NEGATIVE) Urine Blood 2+ (NEGATIVE) H Urine Nitrite Positive (NEGATIVE) H Urine Bilirubin Negative (NEGATIVE) Urine Urobilinogen Normal MG/DL (0.0-1.0) Urine Leukocyte Esterase 3+ (NEGATIVE) H Urine RBC 2-4 /HPF (0 - 2) H Urine WBC Tntc /HPF (0 - 2) H Urine Squamous Epithelial Cells Occasional /LPF Urine Bacteria Many /HPF (NONE) H Objective HEENT: Atraumatic and normocephalic. Anicteric. Pupils are equal, round, and reactive to light and accommodation. NECK: JVP cannot be assessed due to morbid obesity. No carotid bruit. CVS: Normal S1, S2. Regular rate and rhythm. No murmurs, gallops, or rubs. PMI is at fourth intercostal space in the midclavicular. LUNGS: Diminished breath sounds in both bases. ABDOMEN: Distended. Due to obesity, cannot appreciate any hepatosplenomegaly. Positive bowel sounds. EXTREMITIES: There is 3 to 4+ bilateral lower extremity edema with the squaring of the toes, thickened skin over the legs like the orange peel. Ulises Haro MD Jun 01, 2018 23:44
[2018-06-02] VITALS: BP 166/94
[2018-06-02] MEDS: Cephalexin 500mg cap ORAL SCH ×5 (00:22→23:56)
--- NOTE | 2018-06-02 00:52 | NUR ---
NURSE NOTES: Patient vehemently and belligerently refusing wound care for left leg. Risks and benefits explained x3; still refusing.
[2018-06-02] MEDS: Norco 5mg/325mg tab ORAL PRN ×2 (03:24→23:58)
--- NOTE | 2018-06-02 03:47 | NUR ---
pt in bed resting comfortably. no acute distress noted. will continue to monitor
[2018-06-02 04:00] VITALS: BP 144/88
[2018-06-02] MEDS: HydrALAZINE 50mg tab ORAL SCH ×3 (05:57→23:56)
--- NOTE | 2018-06-02 06:45 | NUR ---
NURSE NOTES: pt refusing wound care at this time .
--- NOTE | 2018-06-02 07:21 | NUR ---
HAND-OFF: Report given to Erica.pt sitting in her wheelchair waiting for [facility]. pt refused wound care during my shift. no acute distress during my shift. all needs met during my shift. will endorse care to incoming nurse
--- NOTE | 2018-06-02 07:28 | NUR ---
NURSE NOTES: received patient report form cristiano mosquera. patient is on wheelchair. not in acute distress. comfortable. on room air. no arrythmias reported during the night. SR on the monitor. will continue plan of care.
[2018-06-02 07:42] LABS: BASOPHILS % (AUTO) 0.4 % (0.0-2.0); HEMATOCRIT 37.8 % (37.0-47.0); LYMPHOCYTES % (AUTO) 21.4 % (20.0-45.0); MEAN CORPUSCULAR VOLUME 80 FL (80-99); MONOCYTES % (AUTO) 7.2 % (1.0-10.0); PLATELET COUNT 139 K/UL (150-450); RED CELL DISTRIBUTION WIDTH 15.8 % (11.6-14.8); WHITE BLOOD COUNT 4.9 K/UL (4.8-10.8)
[2018-06-02 08:00] VITALS: BP 148/77
[2018-06-02 08:25] LABS: ANION GAP 7 mmol/L (5-15); BLOOD UREA NITROGEN 16 mg/dL (7-18); CALCIUM 8.7 MG/DL (8.5-10.1); CARBON DIOXIDE 28 MMOL/L (21-32); CHLORIDE 107 MMOL/L (98-107); POTASSIUM 4.3 MMOL/L (3.5-5.1); SODIUM 142 MMOL/L (136-145)
[2018-06-02] MEDS: Docusate 100mg cap ORAL SCH ×3 (08:49→17:15)
[2018-06-02] MEDS: Spironolactone 25mg tab ORAL SCH (08:51)
--- NOTE | 2018-06-02 09:09 | General Progress Note ---
Assessment/Plan Assessment/Plan (1) Left LE pain (2) Left LE Cellulitis (3) Lymphedema Patient to be continued on Deridder as needed. D/w Dr. Bearden and he concurred. Subjective Date patient seen: Jun 02, 2018 Time patient seen: 08:00 - am Constitutional: Reports: no symptoms HEENT: Reports: no symptoms Cardiovascular: Reports: no symptoms Respiratory: Reports: no symptoms Gastrointestinal/Abdominal: Reports: no symptoms Genitourinary: Reports: no symptoms Neurologic/Psychiatric: Reports: no symptoms Endocrine: Reports: no symptoms Hematologic/Lymphatic: Reports: no symptoms Allergies: Coded Allergies: HALOPERIDOL (Verified Allergy, Unknown, 01/28/09) HALOPERIDOL LACTATE (Unverified Allergy, Unknown, 07/30/16) VANCOMYCIN (Unverified Adverse Reaction, Intermediate, Shortness of Breath , 06/26/13) Subjective Patient is in bed showing no signs of pain. Using the Deridder as needed. 2 doses of Deridder given in the last 24hrs. Objective Last 24 Hour Vital Signs Date Time Temp Pulse Resp B/P (MAP) Pulse Ox O2 Delivery O2 Flow Rate FiO2 06/02/18 08:50 148/78 06/02/18 05:57 144/88 06/02/18 04:00 98.0 144/88 (106) 80 06/02/18 04:00 97 06/02/18 04:00 79 06/02/18 00:23 166/94 06/02/18 00:00 73 06/02/18 00:00 99.0 166/94 (118) 78 06/02/18 00:00 96 06/01/18 21:28 130/76 06/01/18 21:00 Room Air 06/01/18 20:00 79 06/01/18 19:19 138/76 (96) 78 06/01/18 16:00 97.3 71 19 161/77 (105) 97 06/01/18 15:27 72 06/01/18 12:38 173/77 06/01/18 12:00 96 06/01/18 12:00 97.3 78 20 173/77 (109) 97 06/01/18 10:46 162/95 Intake and Output 06/01/18 06/02/18 18:59 06:59 Intake Total 720 ml 240 ml Balance 720 ml 240 ml Intake Oral 720 ml 240 ml # Voids 2 2 Laboratory Tests 06/01/18 17:25: Urine Color Yellow, Urine Appearance Cloudy, Urine pH 7, Urine Specific [place] 1.010, Urine Protein 1+H, Urine Glucose (UA) Negative, Urine Ketones Negative, Urine Blood 2+H, Urine Nitrite PositiveH, Urine Bilirubin Negative, Urine Urobilinogen Normal, Urine Leukocyte Esterase 3+H, Urine RBC 2-4H, Urine WBC TntcH, Urine Squamous Epithelial Cells Occasional, Urine Bacteria ManyH 06/02/18 07:17: White Blood Count 4.9, Red Blood Count 4.70, Hemoglobin 12.0, Hematocrit 37.8, Mean Corpuscular Volume 80, Mean Corpuscular Hemoglobin 25.4L, Mean Corpuscular Hemoglobin Concent 31.6L, Red Cell Distribution Width 15.8H, Platelet Count 139L , Mean Platelet Volume 6.9, Neutrophils (%) (Auto) 69.0, Lymphocytes (%) (Auto) 21.4, Monocytes (%) (Auto) 7.2, Eosinophils (%) (Auto) 2.0, Basophils (%) (Auto ) 0.4, Sodium Level 142, Potassium Level 4.3, Chloride Level 107, Carbon Dioxide Level 28, Anion Gap 7, Blood Urea Nitrogen 16, Creatinine 1.0, Estimat Glomerular Filtration Rate 55.7, Glucose Level 110H, Calcium Level 8.7, Troponin I 0.017 Height (Feet): 5 Height (Inches): 9.00 Weight (Pounds): 300 General Appearance: no apparent distress, alert EENT: PERRL/EOMI, normal ENT inspection Neck: non-tender, normal alignment Cardiovascular: normal rate, regular rhythm Respiratory/Chest: decreased breath sounds Abdomen: non tender, soft Extremities: other - bandages applied to left LE Edema: severe edema Neurologic: alert, oriented x 3 Jordon Julio Jun 02, 2018 09:09
--- NOTE | 2018-06-02 10:17 | GI Progress Note ---
Assessment/Plan Problems: (1) Schizophrenia ICD Codes: F20.9 - Schizophrenia, unspecified SNOMED: 09911791 (2) Opiate dependence (3) Abdominal pain ICD Codes: R10.9 - Abdominal pain SNOMED: 28588164 (4) Chest pain ICD Codes: R07.9 - Chest pain, unspecified SNOMED: 10894384 (5) Depression ICD Codes: F32.9 - Major depressive disorder, single episode, unspecified SNOMED: 54830579 (6) Anemia ICD Codes: D64.9 - Anemia, unspecified SNOMED: 034395071 (7) Constipation Status: stable Status Narrative Discussed with Dr. Victoria. Assessment/Plan EGD canceled, patient refused. Resume diet Anemia workup reviewed, mild iron deficiency >> venofer OB stool r/o GI bleed monitor H&H, prn transfusions bowel regime ppi fu labs okay for DC per GI standpoint The patient was seen and examined at bedside and all new and available data was reviewed in the patients chart. I agree with the above findings, impression and plan. (Patient seen earlier today. Signature stamp does not reflect patient encounter time.). - Mervin Victoria MD Subjective Gastrointestinal/Abdominal: Reports: no symptoms Subjective Patient is now refusing procedure,demands breakfast overall feels better Objective Last 24 Hour Vital Signs Date Time Temp Pulse Resp B/P (MAP) Pulse Ox O2 Delivery O2 Flow Rate FiO2 06/02/18 08:50 148/78 06/02/18 08:00 116 06/02/18 08:00 98.9 89 21 148/77 (100) 89 06/02/18 08:00 Room Air 06/02/18 05:57 144/88 06/02/18 04:00 98.0 144/88 (106) 80 06/02/18 04:00 97 06/02/18 04:00 79 06/02/18 00:23 166/94 06/02/18 00:00 73 06/02/18 00:00 99.0 166/94 (118) 78 06/02/18 00:00 96 06/01/18 21:28 130/76 06/01/18 21:00 Room Air 06/01/18 20:00 79 06/01/18 19:19 138/76 (96) 78 06/01/18 16:00 97.3 71 19 161/77 (105) 97 06/01/18 15:27 72 06/01/18 12:38 173/77 06/01/18 12:00 96 06/01/18 12:00 97.3 78 20 173/77 (109) 97 06/01/18 10:46 162/95 Intake and Output 06/01/18 06/02/18 19:00 07:00 Intake Total 720 ml 240 ml Balance 720 ml 240 ml Intake Oral 720 ml 240 ml # Voids 2 2 Laboratory Tests Test 06/01/18 17:25 06/02/18 07:17 Urine Color Yellow Urine Appearance Cloudy Urine pH 7 (4.5-8.0) Urine Specific [place] 1.010 (1.005-1.035) Urine Protein 1+ (NEGATIVE) H Urine Glucose (UA) Negative (NEGATIVE) Urine Ketones Negative (NEGATIVE) Urine Blood 2+ (NEGATIVE) H Urine Nitrite Positive (NEGATIVE) H Urine Bilirubin Negative (NEGATIVE) Urine Urobilinogen Normal MG/DL (0.0-1.0) Urine Leukocyte Esterase 3+ (NEGATIVE) H Urine RBC 2-4 /HPF (0 - 2) H Urine WBC Tntc /HPF (0 - 2) H Urine Squamous Epithelial Cells Occasional /LPF Urine Bacteria Many /HPF (NONE) H White Blood Count 4.9 K/UL (4.8-10.8) Red Blood Count 4.70 M/UL (4.20-5.40) Hemoglobin 12.0 G/DL (12.0-16.0) Hematocrit 37.8 % (37.0-47.0) Mean Corpuscular Volume 80 FL (80-99) Mean Corpuscular Hemoglobin 25.4 PG (27.0-31.0) L Mean Corpuscular Hemoglobin Concent 31.6 G/DL (32.0-36.0) L Red Cell Distribution Width 15.8 % (11.6-14.8) H Platelet Count 139 K/UL (150-450) L Mean Platelet Volume 6.9 FL (6.5-10.1) Neutrophils (%) (Auto) 69.0 % (45.0-75.0) Lymphocytes (%) (Auto) 21.4 % (20.0-45.0) Monocytes (%) (Auto) 7.2 % (1.0-10.0) Eosinophils (%) (Auto) 2.0 % (0.0-3.0) Basophils (%) (Auto) 0.4 % (0.0-2.0) Sodium Level 142 MMOL/L (136-145) Potassium Level 4.3 MMOL/L (3.5-5.1) Chloride Level 107 MMOL/L (98-107) Carbon Dioxide Level 28 MMOL/L (21-32) Anion Gap 7 mmol/L (5-15) Blood Urea Nitrogen 16 mg/dL (7-18) Creatinine 1.0 MG/DL (0.55-1.30) Estimat Glomerular Filtration Rate 55.7 mL/min (>60) Glucose Level 110 MG/DL (74-106) H Calcium Level 8.7 MG/DL (8.5-10.1) Troponin I 0.017 ng/mL (0.000-0.056) Microbiology Date/Time Source Procedure Growth Status 06/01/18 17:25 Indwelling Cath Urine Culture - Preliminary Resulted Height (Feet): 5 Height (Inches): 9.00 Weight (Pounds): 300 General Appearance: WD/WN, no apparent distress, alert, morbidly obese Cardiovascular: normal rate Respiratory/Chest: normal breath sounds, no respiratory distress Abdominal Exam: normal bowel sounds, non tender, soft Extremities: normal range of motion, non-tender Giovanni Winston NP Jun 02, 2018 10:17
--- NOTE | 2018-06-02 11:00 | Consultation ---
DATE OF CONSULTATION: 06/01/2018 PAIN MANAGEMENT CONSULTATION CONSULTING PHYSICIAN: Ronnie Bearden M.D. REFERRING PHYSICIAN: Nima Bolden M.D. PHYSICIAN CUSTOMER CARE AGENT: Yadira Dia CHIEF COMPLAINT: Left lower extremity pain. HISTORY OF PRESENT ILLNESS: The patient is a 67-year-old female who is being seen on the Med/Surg floor of [facility] for initial pain management consultation. The patient was admitted and seen Dr. Bolden due to chest pain, rule out acute coronary syndrome. The patient is morbidly obese complaining of left lower extremity pain and has severe lymphedema and cellulitis, has been seen by Infectious Disease doctor complaining of pain. We were consulted to help the patient to have adequate pain control while here in the hospital. She was complaining of very sharp pain, mostly with movement and was started on [place] 5/325 every 4 hours as needed for pain, which the patient reports has adequately relieved her pain at this time, and she has no other complaints. PAST MEDICAL HISTORY: Hypertension, COPD, morbid obesity, and schizophrenia. SOCIAL HISTORY: Denies smoking tobacco, drinking alcohol, or drug abuse. ALLERGIES: Haldol and vancomycin. MEDICATIONS: Risperdal, Depakote, Xalatan, MiraLax, hydralazine, [place]avel[place], Colace, Zofran, potassium, Protonix, and Tylenol. REVIEW OF SYSTEMS: Denies rash, fever, chills, sweating, dizziness, drowsiness, blurred vision, sore throat, change in hearing or weight. No shortness of breath or chest pain. No nausea, vomiting, or blood in the stool or urine. No bowel or bladder incontinence. She is complaining of left lower extremity pain. PHYSICAL EXAMINATION: GENERAL: Alert, awake, and oriented. VITAL SIGNS: Blood blood pressure 161/77, heart rate is 71, oxygen saturation 97%, respirations 19, and temperature 97.3 degrees Fahrenheit. HEENT: PERRLA. Range of motion is full in all directions. No tenderness to paracervical muscles. No adenopathy. LUNGS: Decreased breath sounds bilaterally. HEART: S1 and S2 regular. ABDOMEN: Obese. BACK: Range of motion is decreased in flexion and extension. EXTREMITIES: severe edema noted in the lower extremities. Bandages applied to the left lower extremities. Sensory is reduced. Reflexes are unobtainable. No adenopathy. ASSESSMENT AND PLAN: This is a 67-year-old female with left lower extremity pain and left lower extremity cellulitis. The patient is to continue Havelock as needed. The patient was discussed with Dr. Bearden and he concurred. We will follow the patient. Thank you very much for the courtesy of this consultation. Ronnie Bearden M.D. MARVIN Dia DR: EMILE JOB#: [id number] CC: ALEXANDREA
[2018-06-02 11:56] VITALS: BP 132/71
--- NOTE | 2018-06-02 13:43 | General Progress Note ---
Assessment/Plan Problem List: (1) Schizophrenia ICD Codes: F20.9 - Schizophrenia, unspecified SNOMED: 75683148 (2) Opiate dependence Status: unchanged Assessment/Plan Depakote 750mg po bid Risperdal 4mg po qhs Avoid pain meds the pt has dependence to Morphine The pt has capacity to refuse meds. Subjective Neurologic/Psychiatric: Reports: anxiety, depressed, emotional problems Allergies: Coded Allergies: HALOPERIDOL (Verified Allergy, Unknown, 01/28/09) HALOPERIDOL LACTATE (Unverified Allergy, Unknown, 07/30/16) VANCOMYCIN (Unverified Adverse Reaction, Intermediate, Shortness of Breath , 06/26/13) Subjective The pt is agitated and refusing the PE Objective Last 24 Hour Vital Signs Date Time Temp Pulse Resp B/P (MAP) Pulse Ox O2 Delivery O2 Flow Rate FiO2 06/02/18 11:56 98.8 76 18 132/71 (91) 99 06/02/18 08:50 148/78 06/02/18 08:00 116 06/02/18 08:00 98.9 89 21 148/77 (100) 97 06/02/18 08:00 Room Air 06/02/18 05:57 144/88 06/02/18 04:00 98.0 144/88 (106) 80 06/02/18 04:00 97 06/02/18 04:00 79 06/02/18 00:23 166/94 06/02/18 00:00 73 06/02/18 00:00 99.0 166/94 (118) 78 06/02/18 00:00 96 06/01/18 21:28 130/76 06/01/18 21:00 Room Air 06/01/18 20:00 79 06/01/18 19:19 138/76 (96) 78 06/01/18 16:00 97.3 71 19 161/77 (105) 97 06/01/18 15:27 72 Intake and Output 06/01/18 06/02/18 19:00 07:00 Intake Total 720 ml 240 ml Balance 720 ml 240 ml Intake Oral 720 ml 240 ml # Voids 2 2 Laboratory Tests 06/01/18 17:25: Urine Color Yellow, Urine Appearance Cloudy, Urine pH 7, Urine Specific [place] 1.010, Urine Protein 1+H, Urine Glucose (UA) Negative, Urine Ketones Negative, Urine Blood 2+H, Urine Nitrite PositiveH, Urine Bilirubin Negative, Urine Urobilinogen Normal, Urine Leukocyte Esterase 3+H, Urine RBC 2-4H, Urine WBC TntcH, Urine Squamous Epithelial Cells Occasional, Urine Bacteria ManyH 06/02/18 07:17: White Blood Count 4.9, Red Blood Count 4.70, Hemoglobin 12.0, Hematocrit 37.8, Mean Corpuscular Volume 80, Mean Corpuscular Hemoglobin 25.4L, Mean Corpuscular Hemoglobin Concent 31.6L, Red Cell Distribution Width 15.8H, Platelet Count 139L , Mean Platelet Volume 6.9, Neutrophils (%) (Auto) 69.0, Lymphocytes (%) (Auto) 21.4, Monocytes (%) (Auto) 7.2, Eosinophils (%) (Auto) 2.0, Basophils (%) (Auto ) 0.4, Sodium Level 142, Potassium Level 4.3, Chloride Level 107, Carbon Dioxide Level 28, Anion Gap 7, Blood Urea Nitrogen 16, Creatinine 1.0, Estimat Glomerular Filtration Rate 55.7, Glucose Level 110H, Calcium Level 8.7, Troponin I 0.017 Height (Feet): 5 Height (Inches): 9.00 Weight (Pounds): 300 General Appearance: alert, moderate distress, agitated, morbidly obese Harris Ballesteros MD Jun 02, 2018 13:43
--- NOTE | 2018-06-02 13:45 | Infectious Diseases Prog Note ---
Assessment/Plan Assessment/Plan A; Leg cellulitis, more on the left side. stasis dermatitis, chronic lymphedema of legs, hypertension, COPD, schizophrenia, opioid dependence. P; Agree with discharge with PO Keflex & Doxycycline X 6 days Subjective ROS Limited/Unobtainable: No Constitutional: Reports: no symptoms Respiratory: Reports: no symptoms Cardiovascular: Reports: no symptoms Gastrointestinal/Abdominal: Reports: no symptoms Musculoskeletal: Reports: no symptoms Allergies: Coded Allergies: HALOPERIDOL (Verified Allergy, Unknown, 01/28/09) HALOPERIDOL LACTATE (Unverified Allergy, Unknown, 07/30/16) VANCOMYCIN (Unverified Adverse Reaction, Intermediate, Shortness of Breath , 06/26/13) Objective Vital Signs Last 24 Hour Vital Signs Date Time Temp Pulse Resp B/P (MAP) Pulse Ox O2 Delivery O2 Flow Rate FiO2 06/02/18 11:56 98.8 76 18 132/71 (91) 99 06/02/18 08:50 148/78 06/02/18 08:00 116 06/02/18 08:00 98.9 89 21 148/77 (100) 97 06/02/18 08:00 Room Air 06/02/18 05:57 144/88 06/02/18 04:00 98.0 144/88 (106) 80 06/02/18 04:00 97 06/02/18 04:00 79 06/02/18 00:23 166/94 06/02/18 00:00 73 06/02/18 00:00 99.0 166/94 (118) 78 06/02/18 00:00 96 06/01/18 21:28 130/76 06/01/18 21:00 Room Air 06/01/18 20:00 79 06/01/18 19:19 138/76 (96) 78 06/01/18 16:00 97.3 71 19 161/77 (105) 97 06/01/18 15:27 72 Height (Feet): 5 Height (Inches): 9.00 Weight (Pounds): 300 General Appearance: no acute distress, other - obese HEENT: mucous membranes moist Respiratory/Chest: lungs clear Cardiovascular: normal rate Abdomen: soft, non tender Extremities: other - edema of legs Skin: other - stasis dematitis of legs, left leg dressing Microbiology Date/Time Source Procedure Growth Status 06/01/18 17:25 Indwelling Cath Urine Culture - Preliminary Resulted 05/31/18 10:30 Rectum - Final NO CARBAPENEM-RESISTANT ENTEROBACTERI... Complete Laboratory Tests Test 06/01/18 17:25 06/02/18 07:17 Urine Color Yellow Urine Appearance Cloudy Urine pH 7 (4.5-8.0) Urine Specific [place] 1.010 (1.005-1.035) Urine Protein 1+ (NEGATIVE) H Urine Glucose (UA) Negative (NEGATIVE) Urine Ketones Negative (NEGATIVE) Urine Blood 2+ (NEGATIVE) H Urine Nitrite Positive (NEGATIVE) H Urine Bilirubin Negative (NEGATIVE) Urine Urobilinogen Normal MG/DL (0.0-1.0) Urine Leukocyte Esterase 3+ (NEGATIVE) H Urine RBC 2-4 /HPF (0 - 2) H Urine WBC Tntc /HPF (0 - 2) H Urine Squamous Epithelial Cells Occasional /LPF Urine Bacteria Many /HPF (NONE) H White Blood Count 4.9 K/UL (4.8-10.8) Red Blood Count 4.70 M/UL (4.20-5.40) Hemoglobin 12.0 G/DL (12.0-16.0) Hematocrit 37.8 % (37.0-47.0) Mean Corpuscular Volume 80 FL (80-99) Mean Corpuscular Hemoglobin 25.4 PG (27.0-31.0) L Mean Corpuscular Hemoglobin Concent 31.6 G/DL (32.0-36.0) L Red Cell Distribution Width 15.8 % (11.6-14.8) H Platelet Count 139 K/UL (150-450) L Mean Platelet Volume 6.9 FL (6.5-10.1) Neutrophils (%) (Auto) 69.0 % (45.0-75.0) Lymphocytes (%) (Auto) 21.4 % (20.0-45.0) Monocytes (%) (Auto) 7.2 % (1.0-10.0) Eosinophils (%) (Auto) 2.0 % (0.0-3.0) Basophils (%) (Auto) 0.4 % (0.0-2.0) Sodium Level 142 MMOL/L (136-145) Potassium Level 4.3 MMOL/L (3.5-5.1) Chloride Level 107 MMOL/L (98-107) Carbon Dioxide Level 28 MMOL/L (21-32) Anion Gap 7 mmol/L (5-15) Blood Urea Nitrogen 16 mg/dL (7-18) Creatinine 1.0 MG/DL (0.55-1.30) Estimat Glomerular Filtration Rate 55.7 mL/min (>60) Glucose Level 110 MG/DL (74-106) H Calcium Level 8.7 MG/DL (8.5-10.1) Troponin I 0.017 ng/mL (0.000-0.056) Current Medications Medications (Trade) Dose Ordered Sig/Shiraz Route PRN Reason Start Time Stop Time Status Last Admin Dose Admin Acetaminophen (Tylenol) 650 mg Q4H PRN ORAL Mild Pain/Temp > 100.5 05/31/18 01:00 06/30/18 00:59 05/31/18 08:32 Acetaminophen/ Hydrocodone Bitart ([place] 5/325) 1 tab Q4H PRN ORAL Moderate Pain (Pain Scale 4-6) 05/31/18 14:00 06/07/18 13:59 06/02/18 03:24 Cephalexin (Keflex) 500 mg Q6HR ORAL 06/01/18 18:00 06/08/18 17:59 06/02/18 12:29 Clonidine HCl (Catapres Tab) 0.1 mg Q4H PRN ORAL bp over 165 syst 06/01/18 14:45 07/01/18 14:44 06/02/18 00:23 Clotrimazole (Lotrimin) 1 applic BID TOPIC 06/01/18 18:00 07/01/18 17:59 06/02/18 08:52 Divalproex Sodium (Depakote) 750 mg BID ORAL 06/01/18 18:00 07/01/18 17:59 06/02/18 08:51 Docusate Sodium (Colace) 100 mg THREE TIMES A DAY ORAL 05/31/18 13:00 06/30/18 12:59 06/02/18 12:29 Doxycycline Monohydrate (Vibramycin) 100 mg EVERY 12 HOURS ORAL 06/01/18 21:00 06/08/18 20:59 06/02/18 08:51 Hydralazine HCl (Apresoline) 50 mg Q8HR ORAL 06/01/18 22:00 06/30/18 17:59 06/02/18 05:57 Irbesartan (Avapro) 150 mg DAILY ORAL 06/02/18 09:00 07/02/18 08:59 06/02/18 08:50 Latanoprost (Xalatan) 1 drop BEDTIME BOTH EYES 05/31/18 21:00 06/30/18 20:59 05/31/18 22:40 Ondansetron HCl (Zofran) 4 mg Q6H PRN IVP Nausea & Vomiting 05/31/18 12:00 06/30/18 11:59 Pantoprazole (Protonix) 40 mg Q12HR ORAL 06/01/18 21:00 06/30/18 08:59 06/02/18 08:50 Patient Own Medication (Patient's Own Med) 1 ea BID TOPIC 05/31/18 18:00 06/30/18 17:59 06/02/18 08:51 Polyethylene Glycol (Miralax) 17 gm BEDTIME ORAL 05/31/18 21:00 06/30/18 20:59 05/31/18 21:12 Potassium Chloride (K-Dur) 20 meq DAILY ORAL 05/31/18 09:00 06/30/18 08:59 06/02/18 08:50 Risperidone (RisperDAL) 4 mg BEDTIME ORAL 06/01/18 21:00 07/01/18 20:59 06/01/18 21:29 Spironolactone (Aldactone) 25 mg DAILY ORAL 06/01/18 09:00 07/01/18 08:59 06/02/18 08:51 Jamie Ivy MD Jun 02, 2018 13:45
--- NOTE | 2018-06-02 14:00 | NUR ---
NURSE NOTES: ms styles made aware of the patients discharge order. per stephani, patient is not going back to [facility]. will continue to care.
--- NOTE | 2018-06-02 15:14 | NUR ---
NURSE NOTES: patient refused wound care today. patient stated " no, you dont have to do anything now. im ok." benefits of wound care and treatment were explained but still patient refused. will continue to care.
--- NOTE | 2018-06-02 15:20 | NUR ---
CASE MANAGEMENT:REVIEW 06/02/18 SI: LEG CELLULITIS. ACS. COPD 98.9 116 21 148/77 97% ON RA PLT-139 IS: AVAPRO PO QD HYDRALAZINE PO Q8HRS RISPERDAL PO QHS VIBRAMYCIN PO Q12 : TELEMETRY STATUS
--- NOTE | 2018-06-02 15:31 | NUR ---
DISCHARGE PLAN PATIENT IS FROM [facility] ~ THEY WILL NOT ACCEPT PATIENT BACK [facility] AT [facility] HAS REFERRED PATIENT TO [facility] ~ AWAITING ACCEPTANCE
[2018-06-02 16:00] VITALS: BP 137/76
--- NOTE | 2018-06-02 16:21 | Nephrology Progress Note ---
Assessment/Plan Problem List: (1) HTN (hypertension) (2) Obesity (3) Lymphedema of both lower extremities Assessment 1. Bilateral lower extremity lymphedema, 2. Noncardiac chest pain. 3. Morbid obesity. 4. Accelerated hypertension. now controlled 5. Anxiety Disorder 5. COPD Plan Hydralazine fpr BP Clonidine for PRN 2D echo pending per cardio and Psych ua and U c/s Subjective ROS Limited/Unobtainable: No Constitutional: Reports: malaise, weakness Objective Objective Last 24 Hour Vital Signs Date Time Temp Pulse Resp B/P (MAP) Pulse Ox O2 Delivery O2 Flow Rate FiO2 06/02/18 16:00 98.0 116 24 137/76 (96) 97 06/02/18 14:59 132/71 06/02/18 12:00 92 06/02/18 11:56 98.8 76 18 132/71 (91) 99 06/02/18 08:50 148/78 06/02/18 08:00 116 06/02/18 08:00 98.9 89 21 148/77 (100) 97 06/02/18 08:00 Room Air 06/02/18 05:57 144/88 06/02/18 04:00 98.0 144/88 (106) 80 06/02/18 04:00 97 06/02/18 04:00 79 06/02/18 00:23 166/94 06/02/18 00:00 73 06/02/18 00:00 99.0 166/94 (118) 78 06/02/18 00:00 96 06/01/18 21:28 130/76 06/01/18 21:00 Room Air 06/01/18 20:00 79 06/01/18 19:19 138/76 (96) 78 Intake and Output 06/01/18 06/02/18 19:00 07:00 Intake Total 720 ml 240 ml Balance 720 ml 240 ml Intake Oral 720 ml 240 ml # Voids 2 2 Laboratory Tests 06/01/18 17:25: Urine Color Yellow, Urine Appearance Cloudy, Urine pH 7, Urine Specific [place] 1.010, Urine Protein 1+H, Urine Glucose (UA) Negative, Urine Ketones Negative, Urine Blood 2+H, Urine Nitrite PositiveH, Urine Bilirubin Negative, Urine Urobilinogen Normal, Urine Leukocyte Esterase 3+H, Urine RBC 2-4H, Urine WBC TntcH, Urine Squamous Epithelial Cells Occasional, Urine Bacteria ManyH 06/02/18 07:17: White Blood Count 4.9, Red Blood Count 4.70, Hemoglobin 12.0, Hematocrit 37.8, Mean Corpuscular Volume 80, Mean Corpuscular Hemoglobin 25.4L, Mean Corpuscular Hemoglobin Concent 31.6L, Red Cell Distribution Width 15.8H, Platelet Count 139L , Mean Platelet Volume 6.9, Neutrophils (%) (Auto) 69.0, Lymphocytes (%) (Auto) 21.4, Monocytes (%) (Auto) 7.2, Eosinophils (%) (Auto) 2.0, Basophils (%) (Auto ) 0.4, Sodium Level 142, Potassium Level 4.3, Chloride Level 107, Carbon Dioxide Level 28, Anion Gap 7, Blood Urea Nitrogen 16, Creatinine 1.0, Estimat Glomerular Filtration Rate 55.7, Glucose Level 110H, Calcium Level 8.7, Troponin I 0.017 Height (Feet): 5 Height (Inches): 9.00 Weight (Pounds): 300 General Appearance: mild distress Cardiovascular: other - variable Respiratory/Chest: decreased breath sounds Abdomen: other - obese Theodore Cardoza MD Jun 02, 2018 16:21
--- NOTE | 2018-06-02 19:00 | NUR ---
NURSE NOTES: Received patient in bed, no signs of respiratory distress. Belongings verified. Patient placed on NC 2L. No c/o pain. Will continue to monitor.
--- NOTE | 2018-06-02 19:04 | NUR ---
TRANSFER TO FLOOR: Patient transferred to [facility] milian order. Report given to chapo mosquera. Belongings and medications given to chapo mosquera.
--- NOTE | 2018-06-02 19:22 | General Progress Note ---
Assessment/Plan Problem List: (1) Anemia ICD Codes: D64.9 - Anemia, unspecified SNOMED: 192942738 (2) Depression ICD Codes: F32.9 - Major depressive disorder, single episode, unspecified SNOMED: 04635270 (3) Opiate dependence (4) Cough ICD Codes: R05 - Cough SNOMED: 09809004 (5) Schizophrenia ICD Codes: F20.9 - Schizophrenia, unspecified SNOMED: 15411679 (6) Sepsis ICD Codes: A41.9 - Sepsis, unspecified organism SNOMED: 02890947 (7) GERD (gastroesophageal reflux disease) ICD Codes: K21.9 - Gastro-esophageal reflux disease without esophagitis SNOMED: 253504295 (8) Nausea ICD Codes: R11.0 - Nausea SNOMED: 428802351 (9) Left leg cellulitis ICD Codes: L03.116 - Cellulitis of left lower limb SNOMED: 031115567 Status: progressing Assessment/Plan sepsis cellulitis of leg improving psychosis obesity dc to any snf reviewed chart and labs Subjective ROS Limited/Unobtainable: Yes Allergies: Coded Allergies: HALOPERIDOL (Verified Allergy, Unknown, 01/28/09) HALOPERIDOL LACTATE (Unverified Allergy, Unknown, 07/30/16) VANCOMYCIN (Unverified Adverse Reaction, Intermediate, Shortness of Breath , 06/26/13) Objective Last 24 Hour Vital Signs Date Time Temp Pulse Resp B/P (MAP) Pulse Ox O2 Delivery O2 Flow Rate FiO2 06/02/18 16:00 98.0 116 24 137/76 (96) 97 06/02/18 14:59 132/71 06/02/18 12:00 92 06/02/18 11:56 98.8 76 18 132/71 (91) 99 06/02/18 08:50 148/78 06/02/18 08:00 116 06/02/18 08:00 98.9 89 21 148/77 (100) 97 06/02/18 08:00 Room Air 06/02/18 05:57 144/88 06/02/18 04:00 98.0 144/88 (106) 80 06/02/18 04:00 97 06/02/18 04:00 79 06/02/18 00:23 166/94 06/02/18 00:00 73 06/02/18 00:00 99.0 166/94 (118) 78 06/02/18 00:00 96 06/01/18 21:28 130/76 06/01/18 21:00 Room Air 06/01/18 20:00 79 Intake and Output 06/01/18 06/02/18 19:00 07:00 Intake Total 720 ml 240 ml Balance 720 ml 240 ml Intake Oral 720 ml 240 ml # Voids 2 2 Laboratory Tests 06/02/18 07:17: White Blood Count 4.9, Red Blood Count 4.70, Hemoglobin 12.0, Hematocrit 37.8, Mean Corpuscular Volume 80, Mean Corpuscular Hemoglobin 25.4L, Mean Corpuscular Hemoglobin Concent 31.6L, Red Cell Distribution Width 15.8H, Platelet Count 139L , Mean Platelet Volume 6.9, Neutrophils (%) (Auto) 69.0, Lymphocytes (%) (Auto) 21.4, Monocytes (%) (Auto) 7.2, Eosinophils (%) (Auto) 2.0, Basophils (%) (Auto ) 0.4, Sodium Level 142, Potassium Level 4.3, Chloride Level 107, Carbon Dioxide Level 28, Anion Gap 7, Blood Urea Nitrogen 16, Creatinine 1.0, Estimat Glomerular Filtration Rate 55.7, Glucose Level 110H, Calcium Level 8.7, Troponin I 0.017 Height (Feet): 5 Height (Inches): 9.00 Weight (Pounds): 300 General Appearance: confused Neck: supple Cardiovascular: normal rate Respiratory/Chest: lungs clear Nima Bolden MD Jun 02, 2018 19:22
--- NOTE | 2018-06-02 19:33 | NUR ---
HAND-OFF: Report given to NOEL Richards.
--- NOTE | 2018-06-02 19:40 | NUR ---
NURSE NOTES: Pt is in bed, awake and verbal. No acute distress noted. Pt is instructed to call for help if needed. Bed low in position,side rails up and call light within reach.
[2018-06-02 20:00] VITALS: BP 145/82
[2018-06-02] MEDS: Miralax 17gm pkt ORAL SCH (21:00)
[2018-06-02] MEDS: Latanoprost 0.005% Opth 2.5ml Soln BOTH EYES SCH (21:00)
--- NOTE | 2018-06-02 21:00 | NUR ---
NURSE NOTES: Pt refused all 9pm medications despite education, encouragement and numerous attempts. Pt also refused wound acre assessment and treatment. Pt is resistive to care. Pt refuses vital signs check. Addendum: 06/03/18 at 0410 by KAYLIN ZAZUETA RN RN Pt took all medications later except Miralax and latanoprost.
--- NOTE | 2018-06-02 23:55 | Cardiology Progress Note ---
Assessment/Plan Assessment/Plan 1. Bilateral lower extremity lymphedema, recommend compression stockings with high pressure ~25 to 30 mmHg. 2. Noncardiac chest pain. Chest pain is pleuritic more so with her cough. A 12-lead electrocardiogram does not show any evidence of ischemia. Negative troponin levels. 3. Morbid obesity. 4. Accelerated hypertension, continue hydralazine, aldactone and Irbesartan. Subjective Subjective Sinus tachycardia at rate of 116. Objective Last 24 Hour Vital Signs Date Time Temp Pulse Resp B/P (MAP) Pulse Ox O2 Delivery O2 Flow Rate FiO2 06/02/18 21:00 Room Air 06/02/18 20:00 98.2 101 24 145/82 (103) 95 06/02/18 16:00 98.0 116 24 137/76 (96) 97 06/02/18 14:59 132/71 06/02/18 12:00 92 06/02/18 11:56 98.8 76 18 132/71 (91) 99 06/02/18 08:50 148/78 06/02/18 08:00 116 06/02/18 08:00 98.9 89 21 148/77 (100) 97 06/02/18 08:00 Room Air 06/02/18 05:57 144/88 06/02/18 04:00 98.0 144/88 (106) 80 06/02/18 04:00 97 06/02/18 04:00 79 06/02/18 00:23 166/94 06/02/18 00:00 73 06/02/18 00:00 99.0 166/94 (118) 78 06/02/18 00:00 96 Respiratory/Chest: rhonchi - bilaterally Intake and Output 06/01/18 06/02/18 19:00 07:00 Intake Total 720 ml 240 ml Balance 720 ml 240 ml Intake Oral 720 ml 240 ml # Voids 2 2 Laboratory Tests Test 06/02/18 07:17 White Blood Count 4.9 K/UL (4.8-10.8) Red Blood Count 4.70 M/UL (4.20-5.40) Hemoglobin 12.0 G/DL (12.0-16.0) Hematocrit 37.8 % (37.0-47.0) Mean Corpuscular Volume 80 FL (80-99) Mean Corpuscular Hemoglobin 25.4 PG (27.0-31.0) L Mean Corpuscular Hemoglobin Concent 31.6 G/DL (32.0-36.0) L Red Cell Distribution Width 15.8 % (11.6-14.8) H Platelet Count 139 K/UL (150-450) L Mean Platelet Volume 6.9 FL (6.5-10.1) Neutrophils (%) (Auto) 69.0 % (45.0-75.0) Lymphocytes (%) (Auto) 21.4 % (20.0-45.0) Monocytes (%) (Auto) 7.2 % (1.0-10.0) Eosinophils (%) (Auto) 2.0 % (0.0-3.0) Basophils (%) (Auto) 0.4 % (0.0-2.0) Sodium Level 142 MMOL/L (136-145) Potassium Level 4.3 MMOL/L (3.5-5.1) Chloride Level 107 MMOL/L (98-107) Carbon Dioxide Level 28 MMOL/L (21-32) Anion Gap 7 mmol/L (5-15) Blood Urea Nitrogen 16 mg/dL (7-18) Creatinine 1.0 MG/DL (0.55-1.30) Estimat Glomerular Filtration Rate 55.7 mL/min (>60) Glucose Level 110 MG/DL (74-106) H Calcium Level 8.7 MG/DL (8.5-10.1) Troponin I 0.017 ng/mL (0.000-0.056) Microbiology Date/Time Source Procedure Growth Status 06/01/18 17:25 Indwelling Cath Urine Culture - Preliminary Resulted 05/31/18 10:30 Rectum - Final NO CARBAPENEM-RESISTANT ENTEROBACTERI... Complete Objective HEENT: Atraumatic and normocephalic. Anicteric. Pupils are equal, round, and reactive to light and accommodation. NECK: JVP cannot be assessed due to morbid obesity. No carotid bruit. CVS: Normal S1, S2. Regular rate and rhythm. No murmurs, gallops, or rubs. PMI is at fourth intercostal space in the midclavicular. LUNGS: Diminished breath sounds in both bases. ABDOMEN: Distended. Due to obesity, cannot appreciate any hepatosplenomegaly. Positive bowel sounds. EXTREMITIES: There is 3 to 4+ bilateral lower extremity edema with the squaring of the toes, thickened skin over the legs like the orange peel. Ulises Haro MD Jun 02, 2018 23:55
[2018-06-03] VITALS: BP 156/84
[2018-06-03 04:00] VITALS: BP 140/73
[2018-06-03] MEDS: Cephalexin 500mg cap ORAL SCH (06:37)
[2018-06-03] MEDS: HydrALAZINE 50mg tab ORAL SCH ×3 (06:37→19:47)
--- NOTE | 2018-06-03 07:15 | NUR ---
HAND-OFF: Report given to NOEL Snowden.
--- NOTE | 2018-06-03 07:29 | NUR ---
NURSE NOTES: received report from NOEL Richards. patient in bed. eating breakfast. alert. verbally responsive. no respiratory distress noted. no c/o pain at this time. bed in the lowest position. alarm on. call light within reach. will continue to monitor.
[2018-06-03 08:00] VITALS: BP 138/94
[2018-06-03] MEDS: Irbesartan 150mg tablet ORAL SCH ×2 (09:00→09:40)
[2018-06-03] MEDS: Spironolactone 25mg tab ORAL SCH ×2 (09:00→09:39)
[2018-06-03] MEDS: Docusate 100mg cap ORAL SCH ×4 (09:00→17:10)
[2018-06-03] MEDS: [UNRECOGNIZED DRUG - OTHER] TOPIC SCH ×2 (09:00→17:11)
[2018-06-03] MEDS: Norco 5mg/325mg tab ORAL PRN ×2 (09:52→19:47)
--- NOTE | 2018-06-03 11:17 | NUR ---
CASE MANAGEMENT: REVIEW SI: CHEST PAIN . ACS T 98.2 HR 108 RR 22 BP 156/84 SAT 98% ROOM AIR IS: K-DUR PO QD ALDACTONE PO QD KEFLEX PO Q6HR PROTONIX PO Q12HR MED/SURG STATUS DCP: PATIENT IS FROM [facility]
--- NOTE | 2018-06-03 11:36 | NUR ---
CASE MANAGEMENT:DCPNOTE CM CALLED [employer] [phone] IN ORDER TO OBTAIN AUTH FOR SNF PLACEMENT. PER ANGEL THE PATIENT IS NOT IN THE SYSTEM. [employer] IS UNABLE TO FIND THE PATIENT A CURRENT MEMBER. CM PROVIDE PATIENT'S FIRST AND LAST NAME, , SS# AND SUBSCRIBER # LOCATED ON FACESHEET [id number]. CM CALLED [facility] [phone] SPOKE WITH ZAID, SHE STATED PATIENT IS NOT SHOWING UP IN [employer] SYSTEM AND SHE WOULD SEND AN EMAIL TO THIS REGARD. SHE ADVISED TO CALL BACK TUESDAY AND SPEAK WITH DEPT. PATIENT ACCEPTED TO [facility] PENDING AUTH FROM [facility]
--- NOTE | 2018-06-03 11:55 | Infectious Diseases Prog Note ---
Assessment/Plan Assessment/Plan antibiotics : keflex, doxycycline A 1. gram negative UTI 2. left leg cellulitis 3. lymphedema 4. schizophrenia 5. hypertension 6. COPD 7. stasis dermatitis P 1. start cefepime 2. d/c keflex 3. continue doxycycline 4. will follow up cultures Subjective Constitutional: Denies: fever, chills Respiratory: Reports: shortness of breath; Denies: dry cough Gastrointestinal/Abdominal: Denies: nausea, vomiting, diarrhea Musculoskeletal: Denies: pain Allergies: Coded Allergies: HALOPERIDOL (Verified Allergy, Unknown, 01/28/09) HALOPERIDOL LACTATE (Unverified Allergy, Unknown, 07/30/16) VANCOMYCIN (Unverified Adverse Reaction, Intermediate, Shortness of Breath , 06/26/13) Objective Vital Signs Last 24 Hour Vital Signs Date Time Temp Pulse Resp B/P (MAP) Pulse Ox O2 Delivery O2 Flow Rate FiO2 06/03/18 09:00 Room Air 06/03/18 08:00 98.2 108 22 138/94 (109) 98 06/03/18 06:37 140/73 06/03/18 04:00 98.6 79 17 140/73 (95) 97 06/03/18 00:00 98.5 98 20 156/84 (108) 98 06/02/18 23:56 156/84 06/02/18 21:00 Room Air 06/02/18 20:00 98.2 101 24 145/82 (103) 95 06/02/18 16:00 98.0 116 24 137/76 (96) 97 06/02/18 14:59 132/71 06/02/18 12:00 92 06/02/18 11:56 98.8 76 18 132/71 (91) 99 Height (Feet): 5 Height (Inches): 9.00 Weight (Pounds): 300 Respiratory/Chest: lungs clear Cardiovascular: normal rate, regular rhythm, no gallop/murmur Abdomen: soft, non tender Extremities: other - + edema, left leg in dressings Microbiology Date/Time Source Procedure Growth Status 06/01/18 17:25 Indwelling Cath Urine Culture - Preliminary Gram Negative Leon Resulted Current Medications Medications (Trade) Dose Ordered Sig/Shiraz Route PRN Reason Start Time Stop Time Status Last Admin Dose Admin Acetaminophen (Tylenol) 650 mg Q4H PRN ORAL Mild Pain/Temp > 100.5 06/02/18 19:00 06/30/18 18:59 Acetaminophen/ Hydrocodone Bitart ([place] 5/325) 1 tab Q4H PRN ORAL Moderate Pain (Pain Scale 4-6) 06/02/18 19:30 06/07/18 19:29 06/02/18 23:58 Cephalexin (Keflex) 500 mg Q6HR ORAL 06/03/18 00:00 06/08/18 17:59 06/03/18 06:37 Clonidine HCl (Catapres Tab) 0.1 mg Q4H PRN ORAL bp over 165 syst 06/02/18 19:00 07/01/18 18:59 Clotrimazole (Lotrimin) 1 applic BID TOPIC 06/03/18 09:00 07/01/18 17:59 Divalproex Sodium (Depakote) 750 mg BID ORAL 06/03/18 09:00 07/01/18 17:59 Docusate Sodium (Colace) 100 mg THREE TIMES A DAY ORAL 06/03/18 09:00 06/30/18 12:59 Doxycycline Monohydrate (Vibramycin) 100 mg EVERY 12 HOURS ORAL 06/02/18 21:00 06/08/18 20:59 06/02/18 23:57 Hydralazine HCl (Apresoline) 50 mg Q8HR ORAL 06/02/18 22:00 06/30/18 17:59 06/03/18 06:37 Irbesartan (Avapro) 150 mg DAILY ORAL 06/03/18 09:00 07/02/18 08:59 Latanoprost (Xalatan) 1 drop BEDTIME BOTH EYES 06/02/18 21:00 06/30/18 20:59 Ondansetron HCl (Zofran) 4 mg Q6H PRN IVP Nausea & Vomiting 06/02/18 19:30 07/02/18 19:29 Pantoprazole (Protonix) 40 mg Q12HR ORAL 06/02/18 21:00 06/30/18 08:59 06/02/18 23:57 Patient Own Medication (Patient's Own Med) 1 ea BID TOPIC 06/03/18 09:00 06/30/18 17:59 Polyethylene Glycol (Miralax) 17 gm BEDTIME ORAL 06/02/18 21:00 06/30/18 20:59 Potassium Chloride (K-Dur) 20 meq DAILY ORAL 06/03/18 09:00 06/30/18 08:59 Risperidone (RisperDAL) 4 mg BEDTIME ORAL 06/02/18 21:00 07/01/18 20:59 06/02/18 23:57 Spironolactone (Aldactone) 25 mg DAILY ORAL 06/03/18 09:00 07/01/18 08:59 Zion Lomax MD Jun 03, 2018 11:55
[2018-06-03] MEDS ORDERED: Cefepime HCl 1 GM in D5W 55 ML IVPB SCH (13:00)
--- NOTE | 2018-06-03 14:57 | General Progress Note ---
Assessment/Plan Problem List: (1) Anemia ICD Codes: D64.9 - Anemia, unspecified SNOMED: 872069941 (2) Depression ICD Codes: F32.9 - Major depressive disorder, single episode, unspecified SNOMED: 57994320 (3) Opiate dependence (4) Cough ICD Codes: R05 - Cough SNOMED: 43186378 (5) Schizophrenia ICD Codes: F20.9 - Schizophrenia, unspecified SNOMED: 07329296 (6) Sepsis ICD Codes: A41.9 - Sepsis, unspecified organism SNOMED: 50676843 (7) GERD (gastroesophageal reflux disease) ICD Codes: K21.9 - Gastro-esophageal reflux disease without esophagitis SNOMED: 888383512 (8) Nausea ICD Codes: R11.0 - Nausea SNOMED: 533611433 (9) Left leg cellulitis ICD Codes: L03.116 - Cellulitis of left lower limb SNOMED: 319576774 Status: progressing Assessment/Plan cellulitis of leg improving psychosis obesity afebrile nac reviewed chart and labs Subjective ROS Limited/Unobtainable: Yes Allergies: Coded Allergies: HALOPERIDOL (Verified Allergy, Unknown, 01/28/09) HALOPERIDOL LACTATE (Unverified Allergy, Unknown, 07/30/16) VANCOMYCIN (Unverified Adverse Reaction, Intermediate, Shortness of Breath , 06/26/13) Objective Last 24 Hour Vital Signs Date Time Temp Pulse Resp B/P (MAP) Pulse Ox O2 Delivery O2 Flow Rate FiO2 06/03/18 09:00 Room Air 06/03/18 08:00 98.2 108 22 138/94 (109) 98 06/03/18 06:37 140/73 06/03/18 04:00 98.6 79 17 140/73 (95) 97 06/03/18 00:00 98.5 98 20 156/84 (108) 98 06/02/18 23:56 156/84 06/02/18 21:00 Room Air 06/02/18 20:00 98.2 101 24 145/82 (103) 95 06/02/18 16:00 98.0 116 24 137/76 (96) 97 06/02/18 14:59 132/71 Intake and Output 06/02/18 06/03/18 19:00 07:00 Intake Total 1200 ml Balance 1200 ml Other 1200 ml # Voids 6 2 Height (Feet): 5 Height (Inches): 9.00 Weight (Pounds): 300 Neck: supple Cardiovascular: normal rate Respiratory/Chest: lungs clear Abdomen: soft Nima Bolden MD Jun 03, 2018 14:57
--- NOTE | 2018-06-03 15:11 | Nephrology Progress Note ---
Assessment/Plan Problem List: (1) HTN (hypertension) (2) Obesity (3) Lymphedema of both lower extremities Assessment 1. Bilateral lower extremity lymphedema, 2. Noncardiac chest pain. 3. Morbid obesity. 4. Accelerated hypertension. now controlled 5. Anxiety Disorder 5. COPD Plan Hydralazine fpr BP Clonidine for PRN 2D echo pending per cardio and Psych ua and U c/s Subjective ROS Limited/Unobtainable: No Constitutional: Reports: malaise Objective Objective Last 24 Hour Vital Signs Date Time Temp Pulse Resp B/P (MAP) Pulse Ox O2 Delivery O2 Flow Rate FiO2 06/03/18 09:00 Room Air 06/03/18 08:00 98.2 108 22 138/94 (109) 98 06/03/18 06:37 140/73 06/03/18 04:00 98.6 79 17 140/73 (95) 97 06/03/18 00:00 98.5 98 20 156/84 (108) 98 06/02/18 23:56 156/84 06/02/18 21:00 Room Air 06/02/18 20:00 98.2 101 24 145/82 (103) 95 06/02/18 16:00 98.0 116 24 137/76 (96) 97 Intake and Output 06/02/18 06/03/18 19:00 07:00 Intake Total 1200 ml Balance 1200 ml Other 1200 ml # Voids 6 2 Height (Feet): 5 Height (Inches): 9.00 Weight (Pounds): 300 General Appearance: no apparent distress Objective no change Theodore Cardoza MD Jun 03, 2018 15:11
--- NOTE | 2018-06-03 19:11 | NUR ---
HAND-OFF: Report given to NOEL Richards.
[2018-06-03] MEDS: Latanoprost 0.005% Opth 2.5ml Soln BOTH EYES SCH (19:48)
[2018-06-03] MEDS: Miralax 17gm pkt ORAL SCH (19:48)
--- NOTE | 2018-06-03 19:51 | NUR ---
NURSE NOTES: Pt is in bed, awake and verbal. No acute distress noted. Pt is reminded to call for assistance before getting out of bed. Bed low in position, side rails up and call light within reach.
[2018-06-03 20:00] VITALS: BP 158/96
--- NOTE | 2018-06-03 23:44 | Cardiology Progress Note ---
Assessment/Plan Assessment/Plan 1. Bilateral lower extremity lymphedema, recommend compression stockings with high pressure ~25 to 30 mmHg. 2. Noncardiac chest pain. Chest pain is pleuritic more so with her cough. A 12-lead electrocardiogram does not show any evidence of ischemia. Negative troponin levels. 3. Morbid obesity. 4. Accelerated hypertension,better controlled, will continue to monitor, in the meantime continue hydralazine, aldactone and Irbesartan. Subjective Subjective Sinus rhythm at rate of 93. Objective Last 24 Hour Vital Signs Date Time Temp Pulse Resp B/P (MAP) Pulse Ox O2 Delivery O2 Flow Rate FiO2 06/03/18 21:00 Room Air 06/03/18 20:00 98.6 93 19 158/96 (116) 98 06/03/18 19:47 145/85 06/03/18 09:00 Room Air 06/03/18 08:00 98.2 108 22 138/94 (109) 98 06/03/18 06:37 140/73 06/03/18 04:00 98.6 79 17 140/73 (95) 97 06/03/18 00:00 98.5 98 20 156/84 (108) 98 06/02/18 23:56 156/84 Pulses: decreased: DP (R) Intake and Output 06/02/18 06/03/18 19:00 07:00 Intake Total 1200 ml Balance 1200 ml Other 1200 ml # Voids 6 2 Microbiology Date/Time Source Procedure Growth Status 06/01/18 17:25 Indwelling Cath Urine Culture - Preliminary Gram Negative Leon Resulted Objective HEENT: Atraumatic and normocephalic. Anicteric. Pupils are equal, round, and reactive to light and accommodation. NECK: JVP cannot be assessed due to morbid obesity. No carotid bruit. CVS: Normal S1, S2. Regular rate and rhythm. No murmurs, gallops, or rubs. PMI is at fourth intercostal space in the midclavicular. LUNGS: Diminished breath sounds in both bases. ABDOMEN: Distended. Due to obesity, cannot appreciate any hepatosplenomegaly. Positive bowel sounds. EXTREMITIES: There is 3 to 4+ bilateral lower extremity edema with the squaring of the toes, thickened skin over the legs like the orange peel. Ulises Haro MD Jun 03, 2018 23:44
[2018-06-04] VITALS: BP 153/84
--- NOTE | 2018-06-04 03:30 | NUR ---
NURSE NOTES: Pt is in bed, awake. No acute distress noted. Pt was cleaned and bed linen was changed a few times.
[2018-06-04 04:00] VITALS: BP 151/85
[2018-06-04] MEDS: HydrALAZINE 50mg tab ORAL SCH ×3 (06:29→21:47)
--- NOTE | 2018-06-04 07:25 | NUR ---
HAND-OFF: Report given to Anastasia Garcia LVN.
[2018-06-04 08:00] VITALS: BP 143/110
[2018-06-04] MEDS ORDERED: Levofloxacin 500mg tab ORAL SCH (09:00)
[2018-06-04] MEDS: Docusate 100mg cap ORAL SCH ×3 (09:00→17:31)
[2018-06-04] MEDS: [UNRECOGNIZED DRUG - OTHER] TOPIC SCH ×2 (09:24→17:31)
[2018-06-04] MEDS: Spironolactone 25mg tab ORAL SCH (09:24)
[2018-06-04] MEDS: Irbesartan 150mg tablet ORAL SCH (09:24)
--- NOTE | 2018-06-04 10:15 | NUR ---
NURSE NOTES: Received patient alert, up on wheelchair. Denies any pain at this time. All needs attended. Assisted with AM care. All needs attended. Call light made within reach.
--- NOTE | 2018-06-04 10:56 | General Progress Note ---
Assessment/Plan Assessment/Plan (1) Left LE pain (2) Left LE Cellulitis (3) Lymphedema Patient to be continued on [place] as needed. D/w Dr. Bearden and he concurred. Subjective Date patient seen: Jun 04, 2018 Time patient seen: 10:00 - am Constitutional: Reports: no symptoms HEENT: Reports: no symptoms Cardiovascular: Reports: no symptoms Respiratory: Reports: no symptoms Gastrointestinal/Abdominal: Reports: no symptoms Genitourinary: Reports: no symptoms Neurologic/Psychiatric: Reports: no symptoms Endocrine: Reports: no symptoms Hematologic/Lymphatic: Reports: no symptoms Allergies: Coded Allergies: HALOPERIDOL (Verified Allergy, Unknown, 01/28/09) HALOPERIDOL LACTATE (Unverified Allergy, Unknown, 07/30/16) VANCOMYCIN (Unverified Adverse Reaction, Intermediate, Shortness of Breath , 06/26/13) Subjective Patient is in bed showing reports that her pain continues to be tolerated on the [place]. She has no new complaints at this time. Objective Last 24 Hour Vital Signs Date Time Temp Pulse Resp B/P (MAP) Pulse Ox O2 Delivery O2 Flow Rate FiO2 06/04/18 09:24 143/110 06/04/18 09:00 Room Air 06/04/18 08:00 97.5 84 20 143/110 (121) 96 06/04/18 06:29 151/85 06/04/18 04:00 97.2 79 18 151/85 (107) 100 06/04/18 00:00 98.1 91 19 153/84 (107) 95 06/03/18 21:00 Room Air 06/03/18 20:00 98.6 93 19 158/96 (116) 98 06/03/18 19:47 145/85 Intake and Output 06/03/18 06/04/18 18:59 06:59 Intake Total 1200 ml Balance 1200 ml Intake Oral 1200 ml # Voids 3 3 Height (Feet): 5 Height (Inches): 9.00 Weight (Pounds): 300 Objective General Appearance: no apparent distress, alert EENT: PERRL/EOMI, normal ENT inspection Neck: non-tender, normal alignment Cardiovascular: normal rate, regular rhythm Respiratory/Chest: decreased breath sounds Abdomen: non tender, soft Extremities: other - bandages applied to left LE Edema: severe edema Neurologic: alert, oriented Jordon Julio Jun 04, 2018 10:56
[2018-06-04 12:09] VITALS: BP 134/77
--- NOTE | 2018-06-04 12:25 | Infectious Diseases Prog Note ---
Assessment/Plan Assessment/Plan A; Leg cellulitis, more on the left side. UTI with ESBL E.coli stasis dermatitis, chronic lymphedema of legs, hypertension, COPD, schizophrenia, opioid dependence. P; Continue Doxycycline X 4 days Change Levaquin to Nitrofurantoin Subjective ROS Limited/Unobtainable: No Constitutional: Reports: no symptoms Breasts: Reports: other - erythema of breast folds Cardiovascular: Reports: no symptoms Gastrointestinal/Abdominal: Reports: no symptoms Genitourinary: Reports: dysuria Musculoskeletal: Reports: pain, other - in left leg Allergies: Coded Allergies: HALOPERIDOL (Verified Allergy, Unknown, 01/28/09) HALOPERIDOL LACTATE (Unverified Allergy, Unknown, 07/30/16) VANCOMYCIN (Unverified Adverse Reaction, Intermediate, Shortness of Breath , 06/26/13) Objective Vital Signs Last 24 Hour Vital Signs Date Time Temp Pulse Resp B/P (MAP) Pulse Ox O2 Delivery O2 Flow Rate FiO2 06/04/18 12:09 85 20 134/77 (96) 96 06/04/18 09:24 143/110 06/04/18 09:00 Room Air 06/04/18 08:00 97.5 84 20 143/110 (121) 96 06/04/18 06:29 151/85 06/04/18 04:00 97.2 79 18 151/85 (107) 100 06/04/18 00:00 98.1 91 19 153/84 (107) 95 06/03/18 21:00 Room Air 06/03/18 20:00 98.6 93 19 158/96 (116) 98 06/03/18 19:47 145/85 Height (Feet): 5 Height (Inches): 9.00 Weight (Pounds): 300 General Appearance: no acute distress, other - obese HEENT: mucous membranes moist Respiratory/Chest: lungs clear Cardiovascular: normal rate Abdomen: soft, non tender Extremities: other - edema of legs Skin: ulcers, other - inleft lateral leg Microbiology Date/Time Source Procedure Growth Status 06/01/18 17:25 Indwelling Cath Urine Culture - Final Escherichia Coli - Esbl Complete Current Medications Medications (Trade) Dose Ordered Sig/Shiraz Route PRN Reason Start Time Stop Time Status Last Admin Dose Admin Acetaminophen (Tylenol) 650 mg Q4H PRN ORAL Mild Pain/Temp > 100.5 06/02/18 19:00 3/22/19 18:59 Acetaminophen/ Hydrocodone Bitart ([place] 5/325) 1 tab Q4H PRN ORAL Moderate Pain (Pain Scale 4-6) 06/02/18 19:30 06/07/18 19:29 06/03/18 19:47 Clonidine HCl (Catapres Tab) 0.1 mg Q4H PRN ORAL bp over 165 syst 06/02/18 19:00 07/01/18 18:59 Clotrimazole (Lotrimin) 1 applic BID TOPIC 06/03/18 09:00 07/01/18 17:59 06/04/18 09:25 Divalproex Sodium (Depakote) 750 mg BID ORAL 06/03/18 09:00 07/01/18 17:59 06/04/18 09:00 Docusate Sodium (Colace) 100 mg THREE TIMES A DAY ORAL 06/03/18 09:00 06/30/18 12:59 06/04/18 09:00 Hydralazine HCl (Apresoline) 50 mg Q8HR ORAL 06/02/18 22:00 06/30/18 17:59 06/04/18 06:29 Irbesartan (Avapro) 150 mg DAILY ORAL 06/03/18 09:00 07/02/18 08:59 06/04/18 09:24 Latanoprost (Xalatan) 1 drop BEDTIME BOTH EYES 06/02/18 21:00 06/30/18 20:59 Levofloxacin (Levaquin) 500 mg DAILY ORAL 06/04/18 09:00 06/11/18 08:59 06/04/18 09:00 Ondansetron HCl (Zofran) 4 mg Q6H PRN IVP Nausea & Vomiting 06/02/18 19:30 07/02/18 19:29 06/03/18 12:15 Pantoprazole (Protonix) 40 mg Q12HR ORAL 06/02/18 21:00 06/30/18 08:59 06/04/18 09:00 Patient Own Medication (Patient's Own Med) 1 ea BID TOPIC 06/03/18 09:00 06/30/18 17:59 06/04/18 09:24 Polyethylene Glycol (Miralax) 17 gm BEDTIME ORAL 06/02/18 21:00 06/30/18 20:59 06/03/18 19:48 Potassium Chloride (K-Dur) 20 meq DAILY ORAL 06/03/18 09:00 06/30/18 08:59 06/04/18 09:01 Risperidone (RisperDAL) 4 mg BEDTIME ORAL 06/02/18 21:00 07/01/18 20:59 06/02/18 23:57 Spironolactone (Aldactone) 25 mg DAILY ORAL 06/03/18 09:00 07/01/18 08:59 06/04/18 09:24 Temazepam (Restoril) 15 mg HSPRN PRN ORAL Insomnia 06/03/18 22:30 06/10/18 22:29 06/03/18 22:35 Jamie Ivy MD Jun 04, 2018 12:25
--- NOTE | 2018-06-04 12:52 | General Progress Note ---
Assessment/Plan Problem List: (1) Anemia ICD Codes: D64.9 - Anemia, unspecified SNOMED: 912309945 (2) Depression ICD Codes: F32.9 - Major depressive disorder, single episode, unspecified SNOMED: 30724455 (3) Opiate dependence (4) Cough ICD Codes: R05 - Cough SNOMED: 47011222 (5) Schizophrenia ICD Codes: F20.9 - Schizophrenia, unspecified SNOMED: 30672567 (6) Sepsis ICD Codes: A41.9 - Sepsis, unspecified organism SNOMED: 34783186 (7) GERD (gastroesophageal reflux disease) ICD Codes: K21.9 - Gastro-esophageal reflux disease without esophagitis SNOMED: 098523488 (8) Nausea ICD Codes: R11.0 - Nausea SNOMED: 245578823 (9) Left leg cellulitis ICD Codes: L03.116 - Cellulitis of left lower limb SNOMED: 491145175 Status: progressing Assessment/Plan cellulitis of leg improving psychosis obesity hallucination reviewed meds and labs Subjective ROS Limited/Unobtainable: Yes Constitutional: Reports: no symptoms Allergies: Coded Allergies: HALOPERIDOL (Verified Allergy, Unknown, 01/28/09) HALOPERIDOL LACTATE (Unverified Allergy, Unknown, 07/30/16) VANCOMYCIN (Unverified Adverse Reaction, Intermediate, Shortness of Breath , 06/26/13) Objective Last 24 Hour Vital Signs Date Time Temp Pulse Resp B/P (MAP) Pulse Ox O2 Delivery O2 Flow Rate FiO2 06/04/18 12:09 85 20 134/77 (96) 96 06/04/18 09:24 143/110 06/04/18 09:00 Room Air 06/04/18 08:00 97.5 84 20 143/110 (121) 96 06/04/18 06:29 151/85 06/04/18 04:00 97.2 79 18 151/85 (107) 100 06/04/18 00:00 98.1 91 19 153/84 (107) 95 06/03/18 21:00 Room Air 06/03/18 20:00 98.6 93 19 158/96 (116) 98 06/03/18 19:47 145/85 Intake and Output 06/03/18 06/04/18 18:59 06:59 Intake Total 1200 ml Balance 1200 ml Intake Oral 1200 ml # Voids 3 3 Height (Feet): 5 Height (Inches): 9.00 Weight (Pounds): 300 Neck: supple Cardiovascular: normal rate Respiratory/Chest: lungs clear Nima Bolden MD Jun 04, 2018 12:52
--- NOTE | 2018-06-04 14:55 | NUR ---
CASE MANAGEMENT: REVIEW SI: CHEST PAIN . ACS T 97.5 HR 85 RR 20 BP 151/85 SAT 96% ROOM AIR IS: K-DUR PO QD ALDACTONE PO QD KEFLEX PO Q6HR PROTONIX PO Q12HR MED/SURG STATUS DCP: PATIENT IS FROM REHAB ON [facility]
[2018-06-04 16:00] VITALS: BP 155/80
--- NOTE | 2018-06-04 17:04 | Nephrology Progress Note ---
Assessment/Plan Problem List: (1) HTN (hypertension) (2) Obesity (3) Lymphedema of both lower extremities Assessment 1. Bilateral lower extremity lymphedema, 2. Noncardiac chest pain. 3. Morbid obesity. 4. Accelerated hypertension. now controlled 5. Anxiety Disorder 5. COPD Plan Hydralazine fpr BP Clonidine for PRN 2D echo pending per cardio and Psych ua and U c/s Subjective ROS Limited/Unobtainable: No Objective Objective Last 24 Hour Vital Signs Date Time Temp Pulse Resp B/P (MAP) Pulse Ox O2 Delivery O2 Flow Rate FiO2 06/04/18 16:00 98.1 81 20 155/80 (105) 100 06/04/18 13:47 134/77 06/04/18 12:09 85 20 134/77 (96) 96 06/04/18 09:24 143/110 06/04/18 09:00 Room Air 06/04/18 08:00 97.5 84 20 143/110 (121) 96 06/04/18 06:29 151/85 06/04/18 04:00 97.2 79 18 151/85 (107) 100 06/04/18 00:00 98.1 91 19 153/84 (107) 95 06/03/18 21:00 Room Air 06/03/18 20:00 98.6 93 19 158/96 (116) 98 06/03/18 19:47 145/85 Intake and Output 06/03/18 06/04/18 19:00 07:00 Intake Total 1200 ml Balance 1200 ml Intake Oral 1200 ml # Voids 3 3 Height (Feet): 5 Height (Inches): 9.00 Weight (Pounds): 300 General Appearance: mild distress, other - sitting in WC rolling in hallway Cardiovascular: normal rate Respiratory/Chest: decreased breath sounds Abdomen: distended Extremities: severe edema Objective no change Theodore Cardoza MD Jun 04, 2018 17:04
[2018-06-04] MEDS: Norco 5mg/325mg tab ORAL PRN (18:03)
--- NOTE | 2018-06-04 19:08 | NUR ---
HAND-OFF: Report given to Maurice.
--- NOTE | 2018-06-04 19:35 | NUR ---
NURSE NOTES: Pt is in room, in an wheelchair. Pt is awake and alert. No acute distress noted. Pt complaints of left leg pain, [place] 5 was given by previous shift nurse, dressing was changed. Pt is instructed to elevate the lower extremities but pt refuses to do so. Pt is instructed to call for help when transferring in and out of bed to the wheelchair. Pt will be monitored.
[2018-06-04 20:00] VITALS: BP 156/83
[2018-06-04] MEDS: Latanoprost 0.005% Opth 2.5ml Soln BOTH EYES SCH (21:00)
[2018-06-04] MEDS: Miralax 17gm pkt ORAL SCH (21:00)
[2018-06-05] VITALS (7 sets, daily range): BP systolic 129–162; BP diastolic 77–91
--- NOTE | 2018-06-05 03:32 | NUR ---
NURSE NOTES: Pt is in bed, asleep. No acute distress noted. Pt is more compliant during this shift.
--- NOTE | 2018-06-05 05:26 | NUR ---
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 Pt refuses wound care.
[2018-06-05] MEDS: HydrALAZINE 50mg tab ORAL SCH ×3 (06:00→21:38)
--- NOTE | 2018-06-05 07:20 | NUR ---
HAND-OFF: Report given to NOEL Chicas.
--- NOTE | 2018-06-05 07:51 | NUR ---
NURSE NOTES: Received pt from RN KAYLIN. Pt is alert and orient x3. pt is in RA. No SOB or acute respiratory distress noted. pt has no iv acces, MD is aware. All needs attended, bed is locked and is in the lowest position. call light within easy reach. will continue to monitor.
[2018-06-05] MEDS: Spironolactone 25mg tab ORAL SCH (08:40)
[2018-06-05] MEDS: Irbesartan 150mg tablet ORAL SCH (08:40)
[2018-06-05] MEDS: Docusate 100mg cap ORAL SCH ×3 (08:40→17:11)
[2018-06-05] MEDS: [UNRECOGNIZED DRUG - OTHER] TOPIC SCH ×2 (08:42→17:11)
[2018-06-05] MEDS: Norco 5mg/325mg tab ORAL PRN (08:49)
--- NOTE | 2018-06-05 09:36 | General Progress Note ---
Assessment/Plan Assessment/Plan (1) Left LE pain (2) Left LE Cellulitis (3) Lymphedema Patient to be continued on [place] as needed. D/w Dr. Bearden and he concurred. Subjective Date patient seen: Jun 05, 2018 Time patient seen: 08:00 - am Constitutional: Reports: weakness HEENT: Reports: no symptoms Cardiovascular: Reports: no symptoms Respiratory: Reports: no symptoms Gastrointestinal/Abdominal: Reports: no symptoms Genitourinary: Reports: no symptoms Neurologic/Psychiatric: Reports: weakness Hematologic/Lymphatic: Reports: no symptoms Allergies: Coded Allergies: HALOPERIDOL (Verified Allergy, Unknown, 01/28/09) HALOPERIDOL LACTATE (Unverified Allergy, Unknown, 07/30/16) VANCOMYCIN (Unverified Adverse Reaction, Intermediate, Shortness of Breath , 06/26/13) Subjective Patient has been in bed and reports that the pain has been stable on the [place]. She has no new complaints Objective Last 24 Hour Vital Signs Date Time Temp Pulse Resp B/P (MAP) Pulse Ox O2 Delivery O2 Flow Rate FiO2 06/05/18 08:40 129/80 06/05/18 08:00 97.7 93 20 129/80 (96) 95 06/05/18 06:00 158/91 06/05/18 04:00 98.4 83 18 158/91 (113) 99 06/05/18 00:24 132/90 (104) 06/05/18 00:00 98.1 86 18 162/85 (110) 99 06/04/18 21:47 156/83 06/04/18 21:00 Room Air 06/04/18 20:00 98.2 84 20 156/83 (107) 99 06/04/18 18:33 98.1 06/04/18 16:00 98.1 81 20 155/80 (105) 100 06/04/18 13:47 134/77 06/04/18 12:09 85 20 134/77 (96) 96 Intake and Output 06/04/18 06/05/18 19:00 07:00 Intake Total 840 ml Balance 840 ml Intake Oral 840 ml # Voids 2 Laboratory Tests 06/04/18 18:30: C-Reactive Protein, Quantitative 6.1H Height (Feet): 5 Height (Inches): 9.00 Weight (Pounds): 300 Objective General Appearance: no apparent distress, alert EENT: PERRL/EOMI, normal ENT inspection Neck: non-tender, normal alignment Cardiovascular: normal rate, regular rhythm Respiratory/Chest: decreased breath sounds Abdomen: non tender, soft Extremities: other - bandages applied to left LE Edema: severe edema Neurologic: alert, oriented Jordon Julio Jun 05, 2018 09:36
--- NOTE | 2018-06-05 10:54 | Nephrology Progress Note ---
Assessment/Plan Problem List: (1) HTN (hypertension) (2) Obesity (3) Lymphedema of both lower extremities Assessment 1. Bilateral lower extremity lymphedema, 2. Noncardiac chest pain. 3. Morbid obesity. 4. Accelerated hypertension. now controlled 5. Anxiety Disorder 5. COPD Plan Hydralazine fpr BP Clonidine for PRN 2D echo pending per cardio and Psych ua and U c/s Subjective ROS Limited/Unobtainable: No Constitutional: Reports: malaise Objective Objective Last 24 Hour Vital Signs Date Time Temp Pulse Resp B/P (MAP) Pulse Ox O2 Delivery O2 Flow Rate FiO2 06/05/18 08:40 129/80 06/05/18 08:00 97.7 93 20 129/80 (96) 95 06/05/18 06:00 158/91 06/05/18 04:00 98.4 83 18 158/91 (113) 99 06/05/18 00:24 132/90 (104) 06/05/18 00:00 98.1 86 18 162/85 (110) 99 06/04/18 21:47 156/83 06/04/18 21:00 Room Air 06/04/18 20:00 98.2 84 20 156/83 (107) 99 06/04/18 18:33 98.1 06/04/18 16:00 98.1 81 20 155/80 (105) 100 06/04/18 13:47 134/77 06/04/18 12:09 85 20 134/77 (96) 96 Intake and Output 06/04/18 06/05/18 18:59 06:59 Intake Total 840 ml Balance 840 ml Intake Oral 840 ml # Voids 2 Laboratory Tests 06/04/18 18:30: C-Reactive Protein, Quantitative 6.1H Height (Feet): 5 Height (Inches): 9.00 Weight (Pounds): 300 General Appearance: no apparent distress Cardiovascular: normal rate Respiratory/Chest: decreased breath sounds Abdomen: soft, other - obese Extremities: other - cellulitic changes Objective no change Theodore Cardoza MD Jun 05, 2018 10:54
--- NOTE | 2018-06-05 11:40 | General Progress Note ---
Assessment/Plan Problem List: (1) Schizophrenia ICD Codes: F20.9 - Schizophrenia, unspecified SNOMED: 52045198 (2) Opiate dependence Assessment/Plan Depakote 750mg po bid Risperdal 4mg po qhs Avoid pain meds the pt has dependence to Morphine The pt has capacity to refuse meds. Subjective Neurologic/Psychiatric: Reports: anxiety, depressed Allergies: Coded Allergies: HALOPERIDOL (Verified Allergy, Unknown, 01/28/09) HALOPERIDOL LACTATE (Unverified Allergy, Unknown, 07/30/16) VANCOMYCIN (Unverified Adverse Reaction, Intermediate, Shortness of Breath , 06/26/13) Subjective The pt is agitated at times refused to take meds yesterday the pt is calm today irritable Objective Last 24 Hour Vital Signs Date Time Temp Pulse Resp B/P (MAP) Pulse Ox O2 Delivery O2 Flow Rate FiO2 06/05/18 09:00 Room Air 06/05/18 08:40 129/80 06/05/18 08:00 97.7 93 20 129/80 (96) 95 06/05/18 06:00 158/91 06/05/18 04:00 98.4 83 18 158/91 (113) 99 06/05/18 00:24 132/90 (104) 06/05/18 00:00 98.1 86 18 162/85 (110) 99 06/04/18 21:47 156/83 06/04/18 21:00 Room Air 06/04/18 20:00 98.2 84 20 156/83 (107) 99 06/04/18 18:33 98.1 06/04/18 16:00 98.1 81 20 155/80 (105) 100 06/04/18 13:47 134/77 06/04/18 12:09 85 20 134/77 (96) 96 Intake and Output 06/04/18 06/05/18 19:00 07:00 Intake Total 840 ml Balance 840 ml Intake Oral 840 ml # Voids 2 Laboratory Tests 06/04/18 18:30: C-Reactive Protein, Quantitative 6.1H Height (Feet): 5 Height (Inches): 9.00 Weight (Pounds): 300 General Appearance: WD/WN, no apparent distress, alert, morbidly obese Neurologic: oriented x 3, responsive, depressed affect Harris Ballesteros MD Jun 05, 2018 11:40
--- NOTE | 2018-06-05 12:08 | GI Progress Note ---
Assessment/Plan Problems: (1) Schizophrenia ICD Codes: F20.9 - Schizophrenia, unspecified SNOMED: 49732088 (2) Opiate dependence (3) Abdominal pain ICD Codes: R10.9 - Abdominal pain SNOMED: 12984723 (4) Chest pain ICD Codes: R07.9 - Chest pain, unspecified SNOMED: 78318654 (5) Depression ICD Codes: F32.9 - Major depressive disorder, single episode, unspecified SNOMED: 17917775 (6) Anemia ICD Codes: D64.9 - Anemia, unspecified SNOMED: 530266919 (7) Constipation Status: unchanged Status Narrative Discussed with Dr. Victoria Assessment/Plan EGD canceled, patient refused. Resume diet Anemia workup reviewed, mild iron deficiency >> venofer OB stool r/o GI bleed monitor H&H, prn transfusions bowel regime ppi fu labs okay for DC per GI standpoint The patient was seen and examined at bedside and all new and available data was reviewed in the patients chart. I agree with the above findings, impression and plan. (Patient seen earlier today. Signature stamp does not reflect patient encounter time.). - Mrevin Victoria MD Subjective Subjective Patient is now refusing procedure,demands breakfast overall feels better Objective Last 24 Hour Vital Signs Date Time Temp Pulse Resp B/P (MAP) Pulse Ox O2 Delivery O2 Flow Rate FiO2 06/05/18 12:00 98.1 91 20 131/77 (95) 96 06/05/18 09:00 Room Air 06/05/18 08:40 129/80 06/05/18 08:00 97.7 93 20 129/80 (96) 95 06/05/18 06:00 158/91 06/05/18 04:00 98.4 83 18 158/91 (113) 99 06/05/18 00:24 132/90 (104) 06/05/18 00:00 98.1 86 18 162/85 (110) 99 06/04/18 21:47 156/83 06/04/18 21:00 Room Air 06/04/18 20:00 98.2 84 20 156/83 (107) 99 06/04/18 18:33 98.1 06/04/18 16:00 98.1 81 20 155/80 (105) 100 06/04/18 13:47 134/77 06/04/18 12:09 85 20 134/77 (96) 96 Intake and Output 06/04/18 06/05/18 19:00 07:00 Intake Total 840 ml Balance 840 ml Intake Oral 840 ml # Voids 2 Laboratory Tests Test 06/04/18 18:30 C-Reactive Protein, Quantitative 6.1 mg/dL (0.00-0.90) H Height (Feet): 5 Height (Inches): 9.00 Weight (Pounds): 300 General Appearance: WD/WN, no apparent distress, alert, morbidly obese Cardiovascular: normal rate Respiratory/Chest: normal breath sounds, no respiratory distress Abdominal Exam: normal bowel sounds, non tender, soft Extremities: non-tender Giovanni Winston NP Jun 05, 2018 12:08
--- NOTE | 2018-06-05 12:57 | Infectious Diseases Prog Note ---
Assessment/Plan Assessment/Plan A; Leg cellulitis, more on the left side. UTI with ESBL E.coli stasis dermatitis, chronic lymphedema of legs, hypertension, COPD, schizophrenia, opioid dependence. P; Continue Doxycycline X 3 days Continue Nitrofurantoin X 4 days Subjective ROS Limited/Unobtainable: Yes Constitutional: Reports: no symptoms, other - feels better Respiratory: Reports: productive cough Gastrointestinal/Abdominal: Reports: no symptoms Genitourinary: Reports: no symptoms Musculoskeletal: Reports: pain, other - in left leg Allergies: Coded Allergies: HALOPERIDOL (Verified Allergy, Unknown, 01/28/09) HALOPERIDOL LACTATE (Unverified Allergy, Unknown, 07/30/16) VANCOMYCIN (Unverified Adverse Reaction, Intermediate, Shortness of Breath , 06/26/13) Objective Vital Signs Last 24 Hour Vital Signs Date Time Temp Pulse Resp B/P (MAP) Pulse Ox O2 Delivery O2 Flow Rate FiO2 06/05/18 12:00 98.1 91 20 131/77 (95) 96 06/05/18 09:19 98.1 06/05/18 09:00 Room Air 06/05/18 08:40 129/80 06/05/18 08:00 97.7 93 20 129/80 (96) 95 06/05/18 06:00 158/91 06/05/18 04:00 98.4 83 18 158/91 (113) 99 06/05/18 00:24 132/90 (104) 06/05/18 00:00 98.1 86 18 162/85 (110) 99 06/04/18 21:47 156/83 06/04/18 21:00 Room Air 06/04/18 20:00 98.2 84 20 156/83 (107) 99 06/04/18 16:00 98.1 81 20 155/80 (105) 100 06/04/18 13:47 134/77 Height (Feet): 5 Height (Inches): 9.00 Weight (Pounds): 300 General Appearance: other - obese HEENT: mucous membranes moist Respiratory/Chest: lungs clear Cardiovascular: normal rate Abdomen: soft, non tender Extremities: other - edema of legs Skin: ulcers, other - left laeral leg Neurologic/Psychiatric: alert, responsive Laboratory Tests Test 06/04/18 18:30 C-Reactive Protein, Quantitative 6.1 mg/dL (0.00-0.90) H Current Medications Medications (Trade) Dose Ordered Sig/Shiraz Route PRN Reason Start Time Stop Time Status Last Admin Dose Admin Acetaminophen (Tylenol) 650 mg Q4H PRN ORAL Mild Pain/Temp > 100.5 06/02/18 19:00 06/30/18 18:59 Acetaminophen/ Hydrocodone Bitart ([place] 5/325) 1 tab Q4H PRN ORAL Moderate Pain (Pain Scale 4-6) 06/02/18 19:30 06/07/18 19:29 06/05/18 08:49 Clonidine HCl (Catapres Tab) 0.1 mg Q4H PRN ORAL bp over 165 syst 06/02/18 19:00 07/01/18 18:59 Clotrimazole (Lotrimin) 1 applic BID TOPIC 06/03/18 09:00 07/01/18 17:59 06/05/18 12:09 Divalproex Sodium (Depakote) 750 mg BID ORAL 06/03/18 09:00 07/01/18 17:59 06/05/18 08:40 Docusate Sodium (Colace) 100 mg THREE TIMES A DAY ORAL 06/03/18 09:00 06/30/18 12:59 06/05/18 08:40 Doxycycline Monohydrate (Vibramycin) 100 mg EVERY 12 HOURS ORAL 06/04/18 13:00 06/11/18 12:59 06/05/18 08:40 Hydralazine HCl (Apresoline) 50 mg Q8HR ORAL 06/02/18 22:00 06/30/18 17:59 06/04/18 21:47 Irbesartan (Avapro) 150 mg DAILY ORAL 06/03/18 09:00 07/02/18 08:59 06/05/18 08:40 Latanoprost (Xalatan) 1 drop BEDTIME BOTH EYES 06/02/18 21:00 06/30/18 20:59 Nitrofurantoin (Macrobid) 100 mg EVERY 12 HOURS ORAL 06/04/18 13:00 07/04/18 12:59 06/05/18 08:40 Ondansetron HCl (Zofran) 4 mg Q6H PRN IVP Nausea & Vomiting 06/02/18 19:30 07/02/18 19:29 06/03/18 12:15 Pantoprazole (Protonix) 40 mg Q12HR ORAL 06/02/18 21:00 06/30/18 08:59 06/05/18 08:41 Patient Own Medication (Patient's Own Med) 1 ea BID TOPIC 06/03/18 09:00 06/30/18 17:59 06/05/18 08:42 Polyethylene Glycol (Miralax) 17 gm BEDTIME ORAL 06/02/18 21:00 06/30/18 20:59 06/03/18 19:48 Potassium Chloride (K-Dur) 20 meq DAILY ORAL 06/03/18 09:00 06/30/18 08:59 06/05/18 08:41 Risperidone (RisperDAL) 4 mg BEDTIME ORAL 06/02/18 21:00 07/01/18 20:59 06/04/18 21:47 Spironolactone (Aldactone) 25 mg DAILY ORAL 06/03/18 09:00 07/01/18 08:59 06/05/18 08:40 Temazepam (Restoril) 15 mg HSPRN PRN ORAL Insomnia 06/03/18 22:30 06/10/18 22:29 06/04/18 21:47 Jamie Ivy MD Jun 05, 2018 12:57
--- NOTE | 2018-06-05 17:44 | NUR ---
CASE MANAGEMENT: REVIEW 06/05/2018 SI: CHEST PAIN . ACS T 98 HR 89 RR 20 B/P 132/80 SATS 97% ON RA NO LABS TODAY IS: K-DUR PO QD ALDACTONE PO QD KEFLEX PO Q6HR PROTONIX PO Q12HR MED/SURG STATUS DCP: PATIENT IS FROM [facility]
--- NOTE | 2018-06-05 19:18 | NUR ---
HAND-OFF: Report given to NOEL NOVOA.
--- NOTE | 2018-06-05 19:46 | NUR ---
NURSE NOTES: Received patient in bed, awake, alert, oriented, no acute distress noted, call light is within reach, bed is in low position, locked and alarm is on.Will continue to monitor for safety and comfort.
[2018-06-05] MEDS: Miralax 17gm pkt ORAL SCH ×2 (20:25→20:29)
[2018-06-05] MEDS: Latanoprost 0.005% Opth 2.5ml Soln BOTH EYES SCH (20:28)
--- NOTE | 2018-06-05 21:27 | General Progress Note ---
Assessment/Plan Problem List: (1) Anemia ICD Codes: D64.9 - Anemia, unspecified SNOMED: 420887892 (2) Depression ICD Codes: F32.9 - Major depressive disorder, single episode, unspecified SNOMED: 83763470 (3) Opiate dependence (4) Cough ICD Codes: R05 - Cough SNOMED: 76320827 (5) Schizophrenia ICD Codes: F20.9 - Schizophrenia, unspecified SNOMED: 27144505 (6) Sepsis ICD Codes: A41.9 - Sepsis, unspecified organism SNOMED: 59695616 (7) GERD (gastroesophageal reflux disease) ICD Codes: K21.9 - Gastro-esophageal reflux disease without esophagitis SNOMED: 820150484 (8) Nausea ICD Codes: R11.0 - Nausea SNOMED: 386336852 (9) Left leg cellulitis ICD Codes: L03.116 - Cellulitis of left lower limb SNOMED: 771388782 Status: progressing Assessment/Plan cellulitis o decrease cough afebrile needs placement hallucination reviewed meds and labs Subjective ROS Limited/Unobtainable: Yes Allergies: Coded Allergies: HALOPERIDOL (Verified Allergy, Unknown, 01/28/09) HALOPERIDOL LACTATE (Unverified Allergy, Unknown, 07/30/16) VANCOMYCIN (Unverified Adverse Reaction, Intermediate, Shortness of Breath , 06/26/13) Objective Last 24 Hour Vital Signs Date Time Temp Pulse Resp B/P (MAP) Pulse Ox O2 Delivery O2 Flow Rate FiO2 06/05/18 16:00 98.0 89 20 132/80 (97) 97 06/05/18 13:03 131/77 06/05/18 12:00 98.1 91 20 131/77 (95) 96 06/05/18 09:19 98.1 06/05/18 09:00 Room Air 06/05/18 08:40 129/80 06/05/18 08:00 97.7 93 20 129/80 (96) 95 06/05/18 06:00 158/91 06/05/18 04:00 98.4 83 18 158/91 (113) 99 06/05/18 00:24 132/90 (104) 06/05/18 00:00 98.1 86 18 162/85 (110) 99 06/04/18 21:47 156/83 Intake and Output 06/04/18 06/05/18 19:00 07:00 Intake Total 840 ml Balance 840 ml Intake Oral 840 ml # Voids 2 Height (Feet): 5 Height (Inches): 9.00 Weight (Pounds): 300 Cardiovascular: normal rate Respiratory/Chest: lungs clear Abdomen: soft Nima Bolden MD Jun 05, 2018 21:26
--- NOTE | 2018-06-05 23:44 | Consultation ---
History of Present Illness General Chief Complaint: Pain Present Illness Allergies: Coded Allergies: HALOPERIDOL (Verified Allergy, Unknown, 01/28/09) HALOPERIDOL LACTATE (Unverified Allergy, Unknown, 07/30/16) VANCOMYCIN (Unverified Adverse Reaction, Intermediate, Shortness of Breath , 06/26/13) Medication History Scheduled Bimatoprost (Lumigan), 1 DROP BOTH EYES HS, (Reported) Diltiazem Hcl* (Cardizem*), 60 MG ORAL EVERY 8 HOURS, (Reported) Divalproex Sodium* (Depakote*), 500 MG PO BID, (Reported) Estrogens Conjugated (Premarin), 0.3 MG ORAL DAILY, (Reported) Latanoprost/Pf (Latanoprost 0.005% Eye Drop), 1 DROP OP DAILY, (Reported) Pantoprazole* (Protonix*), 40 MG ORAL DAILY, (Reported) Miscellaneous Medications Potassium Chloride (Potassium Chloride), 20 MEQ PO, (Reported) Unable to Obtain Medications (Unable To Obtain Meds), (Reported) Patient History Healthcare decision maker Resuscitation status Advanced Directive on File Physical Exam Last 24 Hour Vital Signs Date Time Temp Pulse Resp B/P (MAP) Pulse Ox O2 Delivery O2 Flow Rate FiO2 06/05/18 21:46 Room Air 06/05/18 20:00 98.0 85 18 148/78 (101) 85 06/05/18 16:00 98.0 89 20 132/80 (97) 97 06/05/18 13:03 131/77 06/05/18 12:00 98.1 91 20 131/77 (95) 96 06/05/18 09:19 98.1 06/05/18 09:00 Room Air 06/05/18 08:40 129/80 06/05/18 08:00 97.7 93 20 129/80 (96) 95 06/05/18 06:00 158/91 06/05/18 04:00 98.4 83 18 158/91 (113) 99 06/05/18 00:24 132/90 (104) 06/05/18 00:00 98.1 86 18 162/85 (110) 99 Intake and Output 06/04/18 06/05/18 19:00 07:00 Intake Total 840 ml Balance 840 ml Intake Oral 840 ml # Voids 2 Height (Feet): 5 Height (Inches): 9.00 Weight (Pounds): 300 Medications Current Medications Medications (Trade) Dose Ordered Sig/Shiraz Route PRN Reason Start Time Stop Time Status Last Admin Dose Admin Acetaminophen (Tylenol) 650 mg Q4H PRN ORAL Mild Pain/Temp > 100.5 06/02/18 19:00 06/30/18 18:59 Acetaminophen/ Hydrocodone Bitart ([place] 5/325) 1 tab Q4H PRN ORAL Moderate Pain (Pain Scale 4-6) 06/02/18 19:30 06/07/18 19:29 06/05/18 08:49 Clonidine HCl (Catapres Tab) 0.1 mg Q4H PRN ORAL bp over 165 syst 06/02/18 19:00 07/01/18 18:59 Clotrimazole (Lotrimin) 1 applic BID TOPIC 06/03/18 09:00 07/01/18 17:59 06/05/18 17:11 Divalproex Sodium (Depakote) 750 mg BID ORAL 06/03/18 09:00 07/01/18 17:59 06/05/18 17:11 Docusate Sodium (Colace) 100 mg THREE TIMES A DAY ORAL 06/03/18 09:00 06/30/18 12:59 06/05/18 17:11 Doxycycline Monohydrate (Vibramycin) 100 mg EVERY 12 HOURS ORAL 06/04/18 13:00 06/11/18 12:59 06/05/18 20:24 Hydralazine HCl (Apresoline) 50 mg Q8HR ORAL 06/02/18 22:00 06/30/18 17:59 06/05/18 13:03 Irbesartan (Avapro) 150 mg DAILY ORAL 06/03/18 09:00 07/02/18 08:59 06/05/18 08:40 Latanoprost (Xalatan) 1 drop BEDTIME BOTH EYES 06/02/18 21:00 06/30/18 20:59 Nitrofurantoin (Macrobid) 100 mg EVERY 12 HOURS ORAL 06/04/18 13:00 07/04/18 12:59 06/05/18 20:25 Ondansetron HCl (Zofran) 4 mg Q6H PRN IVP Nausea & Vomiting 06/02/18 19:30 07/02/18 19:29 06/03/18 12:15 Pantoprazole (Protonix) 40 mg Q12HR ORAL 06/02/18 21:00 06/30/18 08:59 06/05/18 20:24 Patient Own Medication (Patient's Own Med) 1 ea BID TOPIC 06/03/18 09:00 06/30/18 17:59 06/05/18 17:11 Polyethylene Glycol (Miralax) 17 gm BEDTIME ORAL 06/02/18 21:00 06/30/18 20:59 06/03/18 19:48 Potassium Chloride (K-Dur) 20 meq DAILY ORAL 06/03/18 09:00 06/30/18 08:59 06/05/18 08:41 Risperidone (RisperDAL) 4 mg BEDTIME ORAL 06/02/18 21:00 07/01/18 20:59 06/05/18 20:25 Spironolactone (Aldactone) 25 mg DAILY ORAL 06/03/18 09:00 07/01/18 08:59 06/05/18 08:40 Temazepam (Restoril) 15 mg HSPRN PRN ORAL Insomnia 06/03/18 22:30 06/10/18 22:29 06/04/18 21:47 Assessment/Plan Assessment/Plan Hematology/Oncology Consultation Requesting MD: Nima Bolden Date of Service: 06/05/18 Reason for consultation: Anemia and Thrombocytopenia HISTORY OF PRESENT ILLNESS: The patient is a 67-year-old white female who is a [facility] resident admitted on 05/30/2018 complaining of chest and abdominal pain. In addition, the patient has chronic wound in lower extremity, especially in the left side. Hematology/Oncology was consulted for Thrombocytopenia and Anemia, hgb 12, plt 139. PAST MEDICAL HISTORY: Significant for hypertension, COPD, morbid obesity, paranoid schizophrenia, opiate dependence, venous stasis ALLERGY: Allergic to haloperidol and vancomycin. MEDICATIONS: Getting Risperdal, Depakote, Xalatan eye drops, MiraLAX, hydralazine, [place], Colace, Zofran, potassium chloride, Protonix, Tylenol. SOCIAL HISTORY: [facility] resident. Denies alcohol, drug abuse, or smoking. . REVIEW OF SYSTEMS: The patient has no complaints except pain in the lower extremity, cannot walk. PHYSICAL EXAMINATION: VITAL SIGNS: Reviewed GENERAL APPEARANCE: Seems to be obese. HEAD AND NECK: [place] conjunctiva. HEART: Normal rate. LUNGS: Clear. ABDOMEN: Soft and nontender. EXTREMITIES: Bilateral edema of lower extremities, has dressing in the left lower extremity, erythema and tenderness in the right lower extremity patient dosen't left opening of the dressing. NEUROLOGIC: Awake and alert. LABORATORY AND DIAGNOSTIC DATA: WBC 4.9 hemoglobin 12, platelet 139 Assessment/Recommendations # Anemia of chronic disease (or of iron deficiency) due to underlying chronic medical issues, multifactorial --> Anemia workup has been ordered --> No evidence of hemolysis is noted, peripheral smear has been reviewed. --> Hgb goal >7. Transfuse prn. 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 doxycycline # stasis dermatitis # chronic lymphedema of legs, recommend compression stockings with high pressure ~25 to 30 mmHg. # Abdominal pain, EGD canceled, patient refused. # Chest pain, Chest pain is pleuritic more so with her cough, 12-lead electrocardiogram does not show any evidence of ischemia. Negative troponin levels. # Depression # Constipation , OB stool r/o GI bleed The timing of this note does not necessarily reflect the time of the patient was seen. Greatly appreciate consultation! Yao Aden MD Jun 05, 2018 23:44
--- NOTE | 2018-06-05 23:45 | Consultation ---
DATE OF CONSULTATION: 05/31/2018 NOTE: "POOR AUDIO QUALITY" VASCULAR SURGERY CONSULTATION CONSULTING PHYSICIAN: Chris Alvarez M.D. REFERRING PHYSICIAN: Nima Bolden M.D. REASON FOR CONSULTATION: Left lower extremity stasis dermatitis. HISTORY OF PRESENT ILLNESS: This is a 67-year-old morbidly obese female who suffers from psychosis, schizophrenia, has recurrent left leg stasis ulceration, dermatitis, and cellulitis. Vascular Surgery is now consulted for further evaluation. The patient currently has no complaints and is requesting pain medication. PAST MEDICAL HISTORY: As above. History of narcotic dependence, psychosis, schizophrenia, morbid obesity. She also has leg edema, lymphedema with left leg stasis dermatitis. MEDICATIONS: See attached MAR. ALLERGIES: No known drug allergies. SOCIAL HISTORY: Denies history of smoking, drugs, or alcohol use. FAMILY HISTORY: Unremarkable. SYSTEM REVIEW: CARDIOVASCULAR: No history of chest pain or palpitation. PULMONARY: No cough. No hemoptysis. GASTROINTESTINAL: No history of abdominal pain, constipation, or diarrhea. GENITOURINARY: No urinary symptoms. NEUROLOGIC: No history of strokes or seizures. PHYSICAL EXAMINATION: VITAL SIGNS: The patient is afebrile at 97, heart rate 76, blood pressure 140/60, respirations 16. LUNGS: Clear to auscultation. HEART: Regular rate and rhythm. ABDOMEN: Soft and nontender. She is morbidly obese. VASCULAR: She has palpable radial pulses. No evidence of carotid bruit. She has palpable femoral pulses. She . She refuses to have the left leg dressing changed. The patient is . She has stasis dermatitis and cellulitis. Feet are warm and adequately perfused. IMPRESSION: 1. Left leg lymphedema, venous stasis dermatitis with ulceration, and recurrent infection. 2. Intact pedal Dopplers with no significant arterial insufficiency. 3. Super morbid obesity with history of hypertension, schizophrenia, and narcotic dependence. PLAN AND RECOMMENDATION: 1. Leg elevation. Continue lower extremity compression dressing with antibiotic topical ointment. 2. Antibiotics systemically per Infectious Disease service. 3. Psychiatry evaluation. 4. Decubitus and DVT precautions. Chris Alvarez M.D. DR: LEANDRO JOB#: [id number] CC:
[2018-06-06] MEDS: Norco 5mg/325mg tab ORAL PRN (01:16)
[2018-06-06] MEDS: HydrALAZINE 50mg tab ORAL SCH ×3 (05:55→21:13)
--- NOTE | 2018-06-06 07:00 | NUR ---
HAND-OFF: Report given to Devin COHEN.
--- NOTE | 2018-06-06 07:31 | NUR ---
NURSE NOTES: Received patient from Chinyere COHEN, patient is sleeping in bed, no distress noted, bed is locked and in lowest position, call light within reach, will continue to monitor.
[2018-06-06 08:00] VITALS: BP 126/74
[2018-06-06] MEDS: [UNRECOGNIZED DRUG - OTHER] TOPIC SCH ×2 (08:25→18:13)
[2018-06-06] MEDS: Docusate 100mg cap ORAL SCH ×3 (08:26→18:00)
[2018-06-06] MEDS: Spironolactone 25mg tab ORAL SCH (08:26)
[2018-06-06] MEDS: Irbesartan 150mg tablet ORAL SCH (08:27)
--- NOTE | 2018-06-06 10:52 | Infectious Diseases Prog Note ---
Assessment/Plan Assessment/Plan A; Leg cellulitis, more on the left side. UTI with ESBL E.coli stasis dermatitis, chronic lymphedema of legs, hypertension, COPD, schizophrenia, opioid dependence. P; Continue Doxycycline X 2 days Continue Nitrofurantoin X 3 days Subjective ROS Limited/Unobtainable: Yes Allergies: Coded Allergies: HALOPERIDOL (Verified Allergy, Unknown, 01/28/09) HALOPERIDOL LACTATE (Unverified Allergy, Unknown, 07/30/16) VANCOMYCIN (Unverified Adverse Reaction, Intermediate, Shortness of Breath , 06/26/13) Objective Vital Signs Last 24 Hour Vital Signs Date Time Temp Pulse Resp B/P (MAP) Pulse Ox O2 Delivery O2 Flow Rate FiO2 06/06/18 08:27 126/74 06/06/18 08:00 Room Air 06/06/18 08:00 97.7 96 126/74 (91) 88 06/06/18 05:55 163/91 06/05/18 21:46 Room Air 06/05/18 20:00 98.0 85 18 148/78 (101) 85 06/05/18 16:00 98.0 89 20 132/80 (97) 97 06/05/18 13:03 131/77 06/05/18 12:00 98.1 91 20 131/77 (95) 96 Height (Feet): 5 Height (Inches): 9.00 Weight (Pounds): 300 General Appearance: no acute distress HEENT: mucous membranes moist Respiratory/Chest: lungs clear Cardiovascular: normal rate Abdomen: soft, non tender Extremities: other - edema of legs Skin: other - stasis dermatitis of legs Current Medications Medications (Trade) Dose Ordered Sig/Shiraz Route PRN Reason Start Time Stop Time Status Last Admin Dose Admin Acetaminophen (Tylenol) 650 mg Q4H PRN ORAL Mild Pain/Temp > 100.5 06/02/18 19:00 06/30/18 18:59 Acetaminophen/ Hydrocodone Bitart ([place] 5/325) 1 tab Q4H PRN ORAL Moderate Pain (Pain Scale 4-6) 06/02/18 19:30 06/07/18 19:29 06/06/18 01:16 Clonidine HCl (Catapres Tab) 0.1 mg Q4H PRN ORAL bp over 165 syst 06/02/18 19:00 07/01/18 18:59 Clotrimazole (Lotrimin) 1 applic BID TOPIC 06/03/18 09:00 07/01/18 17:59 06/06/18 08:25 Divalproex Sodium (Depakote) 750 mg BID ORAL 06/03/18 09:00 07/01/18 17:59 06/06/18 08:26 Docusate Sodium (Colace) 100 mg THREE TIMES A DAY ORAL 06/03/18 09:00 06/30/18 12:59 06/06/18 08:26 Doxycycline Monohydrate (Vibramycin) 100 mg EVERY 12 HOURS ORAL 06/04/18 13:00 06/11/18 12:59 06/06/18 08:26 Hydralazine HCl (Apresoline) 50 mg Q8HR ORAL 06/02/18 22:00 06/30/18 17:59 06/06/18 05:55 Irbesartan (Avapro) 150 mg DAILY ORAL 06/03/18 09:00 07/02/18 08:59 06/06/18 08:27 Latanoprost (Xalatan) 1 drop BEDTIME BOTH EYES 06/02/18 21:00 06/30/18 20:59 Nitrofurantoin (Macrobid) 100 mg EVERY 12 HOURS ORAL 06/04/18 13:00 07/04/18 12:59 06/06/18 08:27 Ondansetron HCl (Zofran) 4 mg Q6H PRN IVP Nausea & Vomiting 06/02/18 19:30 07/02/18 19:29 06/03/18 12:15 Pantoprazole (Protonix) 40 mg Q12HR ORAL 06/02/18 21:00 06/30/18 08:59 06/06/18 08:26 Patient Own Medication (Patient's Own Med) 1 ea BID TOPIC 06/03/18 09:00 06/30/18 17:59 06/06/18 08:25 Polyethylene Glycol (Miralax) 17 gm BEDTIME ORAL 06/02/18 21:00 06/30/18 20:59 06/03/18 19:48 Potassium Chloride (K-Dur) 20 meq DAILY ORAL 06/03/18 09:00 06/30/18 08:59 06/06/18 08:26 Risperidone (RisperDAL) 4 mg BEDTIME ORAL 06/02/18 21:00 07/01/18 20:59 06/05/18 20:25 Spironolactone (Aldactone) 25 mg DAILY ORAL 06/03/18 09:00 07/01/18 08:59 06/06/18 08:26 Temazepam (Restoril) 15 mg HSPRN PRN ORAL Insomnia 06/03/18 22:30 06/10/18 22:29 06/06/18 00:23 Jamie Ivy MD Jun 06, 2018 10:51
--- NOTE | 2018-06-06 11:34 | General Progress Note ---
Assessment/Plan Problem List: (1) Schizophrenia ICD Codes: F20.9 - Schizophrenia, unspecified SNOMED: 49912149 (2) Opiate dependence Status: not improved, unchanged Assessment/Plan Depakote 750mg po bid Risperdal 4mg po qhs Avoid pain meds the pt has dependence to Morphine The pt has capacity to refuse meds. valproic acid level Subjective Neurologic/Psychiatric: Reports: anxiety, depressed, emotional problems Allergies: Coded Allergies: HALOPERIDOL (Verified Allergy, Unknown, 01/28/09) HALOPERIDOL LACTATE (Unverified Allergy, Unknown, 07/30/16) VANCOMYCIN (Unverified Adverse Reaction, Intermediate, Shortness of Breath , 06/26/13) Subjective The pt was calmer and cooperative The pt took all meds The pt doesn't have behavioral issues today still has episodes of agitation Objective Last 24 Hour Vital Signs Date Time Temp Pulse Resp B/P (MAP) Pulse Ox O2 Delivery O2 Flow Rate FiO2 06/06/18 08:27 126/74 06/06/18 08:00 Room Air 06/06/18 08:00 97.7 96 126/74 (91) 88 06/06/18 05:55 163/91 06/05/18 21:46 Room Air 06/05/18 20:00 98.0 85 18 148/78 (101) 85 06/05/18 16:00 98.0 89 20 132/80 (97) 97 06/05/18 13:03 131/77 06/05/18 12:00 98.1 91 20 131/77 (95) 96 Intake and Output 06/05/18 06/06/18 19:00 07:00 Intake Total 1620 ml 240 ml Balance 1620 ml 240 ml Intake Oral 1620 ml Other 240 ml # Voids 9 2 Height (Feet): 5 Height (Inches): 9.00 Weight (Pounds): 300 General Appearance: WD/WN, no apparent distress, alert, morbidly obese Neurologic: alert, responsive, depressed affect Harris Ballesteros MD Jun 06, 2018 11:34
[2018-06-06 12:00] VITALS: BP 112/74
--- NOTE | 2018-06-06 13:18 | GI Progress Note ---
Assessment/Plan Problems: (1) Schizophrenia ICD Codes: F20.9 - Schizophrenia, unspecified SNOMED: 27757602 (2) Opiate dependence (3) Abdominal pain ICD Codes: R10.9 - Abdominal pain SNOMED: 18274461 (4) Chest pain ICD Codes: R07.9 - Chest pain, unspecified SNOMED: 75851797 (5) Depression ICD Codes: F32.9 - Major depressive disorder, single episode, unspecified SNOMED: 00181252 (6) Anemia ICD Codes: D64.9 - Anemia, unspecified SNOMED: 448714297 (7) Constipation Status: stable Status Narrative Discussed with Dr. Victoria. Assessment/Plan EGD canceled, patient refused. Resume diet Anemia workup reviewed, mild iron deficiency >> venofer OB stool r/o GI bleed monitor H&H, prn transfusions bowel regime ppi fu labs okay for DC per GI standpoint The patient was seen and examined at bedside and all new and available data was reviewed in the patients chart. I agree with the above findings, impression and plan. (Patient seen earlier today. Signature stamp does not reflect patient encounter time.). - Mervin Victoria MD Subjective Subjective Patient is now refusing procedure,demands breakfast overall feels better Objective Last 24 Hour Vital Signs Date Time Temp Pulse Resp B/P (MAP) Pulse Ox O2 Delivery O2 Flow Rate FiO2 06/06/18 12:00 98.4 97 19 112/74 (87) 97 06/06/18 08:27 126/74 06/06/18 08:00 Room Air 06/06/18 08:00 97.7 96 126/74 (91) 88 06/06/18 05:55 163/91 06/05/18 21:46 Room Air 06/05/18 20:00 98.0 85 18 148/78 (101) 85 06/05/18 16:00 98.0 89 20 132/80 (97) 97 Intake and Output 06/05/18 06/06/18 19:00 07:00 Intake Total 1620 ml 240 ml Balance 1620 ml 240 ml Intake Oral 1620 ml Other 240 ml # Voids 9 2 Height (Feet): 5 Height (Inches): 9.00 Weight (Pounds): 300 General Appearance: WD/WN, no apparent distress, alert, morbidly obese Cardiovascular: normal rate Respiratory/Chest: normal breath sounds, no respiratory distress Abdominal Exam: normal bowel sounds, non tender, soft Extremities: non-tender Giovanni Winston NP Jun 06, 2018 13:18
[2018-06-06 16:00] VITALS: BP 178/74
--- NOTE | 2018-06-06 16:38 | General Progress Note ---
Assessment/Plan Assessment/Plan (1) Left LE pain (2) Left LE Cellulitis (3) Lymphedema Patient to be continued on [place] as needed. D/w Dr. Bearden and he concurred. Subjective Date patient seen: Jun 06, 2018 Time patient seen: 03:45 - pm Allergies: Coded Allergies: HALOPERIDOL (Verified Allergy, Unknown, 01/28/09) HALOPERIDOL LACTATE (Unverified Allergy, Unknown, 07/30/16) VANCOMYCIN (Unverified Adverse Reaction, Intermediate, Shortness of Breath , 06/26/13) Subjective Constitutional: Reports: weakness HEENT: Reports: no symptoms Cardiovascular: Reports: no symptoms Respiratory: Reports: no symptoms Gastrointestinal/Abdominal: Reports: no symptoms Genitourinary: Reports: no symptoms Neurologic/Psychiatric: Reports: weakness Hematologic/Lymphatic: Reports: no symptoms Subjective Patient showing no signs of pain or distress. Pain is stable on the [place]. She has no new complaints at this time. Objective Last 24 Hour Vital Signs Date Time Temp Pulse Resp B/P (MAP) Pulse Ox O2 Delivery O2 Flow Rate FiO2 06/06/18 13:17 112/74 06/06/18 12:00 98.4 97 19 112/74 (87) 97 06/06/18 08:27 126/74 06/06/18 08:00 Room Air 06/06/18 08:00 97.7 96 126/74 (91) 88 06/06/18 05:55 163/91 06/05/18 21:46 Room Air 06/05/18 20:00 98.0 85 18 148/78 (101) 85 Intake and Output 06/05/18 06/06/18 18:59 06:59 Intake Total 1620 ml 240 ml Balance 1620 ml 240 ml Intake Oral 1620 ml Other 240 ml # Voids 9 2 Height (Feet): 5 Height (Inches): 9.00 Weight (Pounds): 300 Objective General Appearance: no apparent distress, alert EENT: PERRL/EOMI, normal ENT inspection Neck: non-tender, normal alignment Cardiovascular: normal rate, regular rhythm Respiratory/Chest: decreased breath sounds Abdomen: non tender, soft Extremities: other - bandages applied to left LE Edema: severe edema Neurologic: alert, oriented Jordon Julio Jun 06, 2018 16:38
--- NOTE | 2018-06-06 16:39 | Nephrology Progress Note ---
Assessment/Plan Problem List: (1) HTN (hypertension) (2) Obesity (3) Lymphedema of both lower extremities Assessment 1. Bilateral lower extremity lymphedema, 2. Noncardiac chest pain. 3. Morbid obesity. 4. Accelerated hypertension. now controlled 5. Anxiety Disorder 5. COPD Plan no labs Hydralazine fpr BP Clonidine for PRN 2D echo pending per cardio and Psych ua and U c/s Subjective ROS Limited/Unobtainable: No Constitutional: Reports: malaise Objective Objective Last 24 Hour Vital Signs Date Time Temp Pulse Resp B/P (MAP) Pulse Ox O2 Delivery O2 Flow Rate FiO2 06/06/18 13:17 112/74 06/06/18 12:00 98.4 97 19 112/74 (87) 97 06/06/18 08:27 126/74 06/06/18 08:00 Room Air 06/06/18 08:00 97.7 96 126/74 (91) 88 06/06/18 05:55 163/91 06/05/18 21:46 Room Air 06/05/18 20:00 98.0 85 18 148/78 (101) 85 Intake and Output 06/05/18 06/06/18 18:59 06:59 Intake Total 1620 ml 240 ml Balance 1620 ml 240 ml Intake Oral 1620 ml Other 240 ml # Voids 9 2 Height (Feet): 5 Height (Inches): 9.00 Weight (Pounds): 300 General Appearance: no apparent distress, agitated Cardiovascular: tachycardia Respiratory/Chest: decreased breath sounds Abdomen: distended Objective no change Theodore Cardoza MD Jun 06, 2018 16:39
--- NOTE | 2018-06-06 16:43 | NUR ---
[employer] SI: CHEST PAIN,ACS T. 98.4 HR 97 RR 19 B/P 112/74 RA 98% IS: MACROBID PO VIBRAMYCIN PO PROTONIX DEPAKOTE PO DC PLANNING MED/SURG STATUS
--- NOTE | 2018-06-06 16:54 | General Progress Note ---
Assessment/Plan Problem List: (1) Anemia ICD Codes: D64.9 - Anemia, unspecified SNOMED: 181784649 (2) Depression ICD Codes: F32.9 - Major depressive disorder, single episode, unspecified SNOMED: 80315576 (3) Opiate dependence (4) Cough ICD Codes: R05 - Cough SNOMED: 39335657 (5) Schizophrenia ICD Codes: F20.9 - Schizophrenia, unspecified SNOMED: 49938914 (6) Sepsis ICD Codes: A41.9 - Sepsis, unspecified organism SNOMED: 58994736 (7) GERD (gastroesophageal reflux disease) ICD Codes: K21.9 - Gastro-esophageal reflux disease without esophagitis SNOMED: 158853900 (8) Nausea ICD Codes: R11.0 - Nausea SNOMED: 520738366 (9) Left leg cellulitis ICD Codes: L03.116 - Cellulitis of left lower limb SNOMED: 361691582 Status: progressing Assessment/Plan no acute events needs placement no wheezing afebrile hallucination reviewed meds and labs Subjective ROS Limited/Unobtainable: Yes Allergies: Coded Allergies: HALOPERIDOL (Verified Allergy, Unknown, 01/28/09) HALOPERIDOL LACTATE (Unverified Allergy, Unknown, 07/30/16) VANCOMYCIN (Unverified Adverse Reaction, Intermediate, Shortness of Breath , 06/26/13) Objective Last 24 Hour Vital Signs Date Time Temp Pulse Resp B/P (MAP) Pulse Ox O2 Delivery O2 Flow Rate FiO2 06/06/18 13:17 112/74 06/06/18 12:00 98.4 97 19 112/74 (87) 97 06/06/18 08:27 126/74 06/06/18 08:00 Room Air 06/06/18 08:00 97.7 96 126/74 (91) 88 06/06/18 05:55 163/91 06/05/18 21:46 Room Air 06/05/18 20:00 98.0 85 18 148/78 (101) 85 Intake and Output 06/05/18 06/06/18 18:59 06:59 Intake Total 1620 ml 240 ml Balance 1620 ml 240 ml Intake Oral 1620 ml Other 240 ml # Voids 9 2 Height (Feet): 5 Height (Inches): 9.00 Weight (Pounds): 300 General Appearance: confused Neck: supple Respiratory/Chest: lungs clear Abdomen: soft Nima Bolden MD Jun 06, 2018 16:54
--- NOTE | 2018-06-06 19:25 | NUR ---
HAND-OFF: Report given to Luis COHEN.
--- NOTE | 2018-06-06 19:25 | NUR ---
NURSE NOTES: Received patient on wheelchair, roaming around the hallway, asking for food. No IV line noted. No s/s of any distress, denies any pain. Will continue to monitor.
[2018-06-06 20:00] VITALS: BP 160/108
[2018-06-06] MEDS: Latanoprost 0.005% Opth 2.5ml Soln BOTH EYES SCH (21:00)
[2018-06-06] MEDS: Miralax 17gm pkt ORAL SCH (21:13)
--- NOTE | 2018-06-06 21:30 | NUR ---
NURSE NOTES: Patient refused blood draw.
--- NOTE | 2018-06-06 21:32 | General Progress Note ---
Assessment/Plan Assessment/Plan Assessment/Recommendations # Anemia of chronic disease (or of iron deficiency) due to underlying chronic medical issues, multifactorial --> Anemia workup has been ordered --> No evidence of hemolysis is noted, peripheral smear has been reviewed. --> Hgb goal >7. Transfuse prn. 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 doxycycline # stasis dermatitis # chronic lymphedema of legs, recommend compression stockings with high pressure ~25 to 30 mmHg. # Abdominal pain, EGD canceled, patient refused. # Chest pain, Chest pain is pleuritic more so with her cough, 12-lead electrocardiogram does not show any evidence of ischemia. Negative troponin levels. # Depression # Constipation , OB stool r/o GI bleed The timing of this note does not necessarily reflect the time of the patient was seen. Greatly appreciate consultation! Subjective Constitutional: Denies: no symptoms, chills, diaphoresis, fever, malaise, weakness, other HEENT: Denies: no symptoms, eye pain, blurred vision, tearing, double vision, ear pain, ear discharge, nose pain, nose congestion, throat pain, throat swelling, mouth pain, mouth swelling, other Cardiovascular: Denies: no symptoms, chest pain, edema, irregular heart rate, lightheadedness, palpitations, syncope, other Respiratory: Denies: no symptoms, cough, orthopnea, shortness of breath, SOB with excertion, SOB at rest, sputum, stridor, wheezing, other Gastrointestinal/Abdominal: Denies: no symptoms, abdomen distended, abdominal pain, black stools, tarry stools, blood in stool, constipated, diarrhea, difficulty swallowing, nausea, poor appetite, poor fluid intake, rectal bleeding , vomiting, other Genitourinary: Denies: no symptoms, burning, discharge, frequency, flank pain, hematuria, incontinence, pain, urgency, other Neurologic/Psychiatric: Denies: no symptoms, anxiety, depressed, emotional problems, headache, numbness, paresthesia, pre-existing deficit, seizure, tingling, tremors, weakness, other Endocrine: Denies: no symptoms, excessive sweating, flushing, intolerance to cold, intolerance to heat, increased hunger, increased thirst, increased urine, unexplained weight gain, unexplained weight loss, other Hematologic/Lymphatic: Denies: no symptoms, anemia, easy bleeding, easy bruising, other Allergies: Coded Allergies: HALOPERIDOL (Verified Allergy, Unknown, 01/28/09) HALOPERIDOL LACTATE (Unverified Allergy, Unknown, 07/30/16) VANCOMYCIN (Unverified Adverse Reaction, Intermediate, Shortness of Breath , 06/26/13) Subjective 06/06: seen by bedside, comfortable, no distress reported, plt 139 Objective Last 24 Hour Vital Signs Date Time Temp Pulse Resp B/P (MAP) Pulse Ox O2 Delivery O2 Flow Rate FiO2 06/06/18 21:13 160/108 06/06/18 18:13 194/74 06/06/18 16:00 97.7 81 20 178/74 (108) 96 81 06/06/18 13:17 112/74 06/06/18 12:00 98.4 97 19 112/74 (87) 97 06/06/18 08:27 126/74 06/06/18 08:00 Room Air 06/06/18 08:00 97.7 96 126/74 (91) 88 06/06/18 05:55 163/91 06/05/18 21:46 Room Air Intake and Output 06/05/18 06/06/18 18:59 06:59 Intake Total 1620 ml 240 ml Balance 1620 ml 240 ml Intake Oral 1620 ml Other 240 ml # Voids 9 2 Height (Feet): 5 Height (Inches): 9.00 Weight (Pounds): 300 Objective PHYSICAL EXAMINATION: VITAL SIGNS: Reviewed GENERAL APPEARANCE: Seems to be obese. HEAD AND NECK: [place] conjunctiva. HEART: Normal rate. LUNGS: Clear. ABDOMEN: Soft and nontender. EXTREMITIES: Bilateral edema of lower extremities, has dressing in the left lower extremity, erythema and tenderness in the right lower extremity patient dosen't left opening of the dressing. NEUROLOGIC: Awake and alert. Yao Aden MD Jun 06, 2018 21:32
--- NOTE | 2018-06-06 23:51 | Cardiology Progress Note ---
Assessment/Plan Assessment/Plan 1. Bilateral lower extremity lymphedema, recommend compression stockings with high pressure ~25 to 30 mmHg. 2. Noncardiac chest pain. Chest pain is pleuritic more so with her cough. A 12-lead electrocardiogram does not show any evidence of ischemia. Negative troponin levels. 3. Morbid obesity. 4. Accelerated hypertension, well controlled, will continue to monitor, in the meantime continue hydralazine, aldactone and Irbesartan. Subjective Subjective Sinus rhythm at rate of 86. Objective Last 24 Hour Vital Signs Date Time Temp Pulse Resp B/P (MAP) Pulse Ox O2 Delivery O2 Flow Rate FiO2 06/06/18 21:13 160/108 06/06/18 21:00 Room Air 06/06/18 20:00 97.1 86 17 160/108 (125) 97 06/06/18 18:13 194/74 06/06/18 16:00 97.7 81 20 178/74 (108) 96 81 06/06/18 13:17 112/74 06/06/18 12:00 98.4 97 19 112/74 (87) 97 06/06/18 08:27 126/74 06/06/18 08:00 Room Air 06/06/18 08:00 97.7 96 126/74 (91) 88 06/06/18 05:55 163/91 Intake and Output 06/05/18 06/06/18 19:00 07:00 Intake Total 1620 ml 240 ml Balance 1620 ml 240 ml Intake Oral 1620 ml Other 240 ml # Voids 9 2 Objective HEENT: Atraumatic and normocephalic. Anicteric. Pupils are equal, round, and reactive to light and accommodation. NECK: JVP cannot be assessed due to morbid obesity. No carotid bruit. CVS: Normal S1, S2. Regular rate and rhythm. No murmurs, gallops, or rubs. PMI is at fourth intercostal space in the midclavicular. LUNGS: Diminished breath sounds in both bases. ABDOMEN: Distended. Due to obesity, cannot appreciate any hepatosplenomegaly. Positive bowel sounds. EXTREMITIES: There is 3 to 4+ bilateral lower extremity edema with the squaring of the toes, thickened skin over the legs like the orange peel. Ulises Haro MD Jun 06, 2018 23:51
[2018-06-07] VITALS: BP 156/106
[2018-06-07 04:00] VITALS: BP 152/97
[2018-06-07] MEDS: HydrALAZINE 50mg tab ORAL SCH ×3 (05:22→21:04)
--- NOTE | 2018-06-07 05:28 | NUR ---
NURSE NOTES: Patient refused dressing changed.
[2018-06-07 07:23] LABS: HEMATOCRIT 34.4 % (37.0-47.0); HEMOGLOBIN 10.5 G/DL (12.0-16.0); MEAN CORPUSCULAR VOLUME 83 FL (80-99); PLATELET COUNT 115 K/UL (150-450); RED BLOOD COUNT 4.17 M/UL (4.20-5.40); RED CELL DISTRIBUTION WIDTH 15.8 % (11.6-14.8); WHITE BLOOD COUNT 3.4 K/UL (4.8-10.8)
--- NOTE | 2018-06-07 07:32 | NUR ---
NURSE NOTES: received report from NOEL Smith. patient in W/C. alert, verbally responsive. no respiratory distress noted. no c/o pain at this time. safe and clutter environment at all times. call light in place. alarm on. will continue to monitor.
--- NOTE | 2018-06-07 07:32 | NUR ---
HAND-OFF: Report given to Isi COHEN.
[2018-06-07 07:49] LABS: ALANINE AMINOTRANSFERASE 13 U/L (12-78); ALBUMIN 2.8 G/DL (3.4-5.0); ALBUMIN/GLOBULIN RATIO 0.7 (1.0-2.7); ALKALINE PHOSPHATASE 86 U/L (46-116); ANION GAP 8 mmol/L (5-15); ASPARTATE AMINO TRANSFERASE 9 U/L (15-37); BILIRUBIN,TOTAL 0.3 MG/DL (0.2-1.0); BLOOD UREA NITROGEN 23 mg/dL (7-18); CALCIUM 9.1 MG/DL (8.5-10.1); CARBON DIOXIDE 31 MMOL/L (21-32); CHLORIDE 104 MMOL/L (98-107); CREATININE 0.8 MG/DL (0.55-1.30); PHOSPHORUS 3.4 MG/DL (2.5-4.9); POTASSIUM 4.1 MMOL/L (3.5-5.1); SODIUM 142 MMOL/L (136-145)
[2018-06-07 08:00] VITALS: BP 168/77
[2018-06-07] MEDS: Spironolactone 25mg tab ORAL SCH (08:37)
[2018-06-07] MEDS: Docusate 100mg cap ORAL SCH ×3 (08:38→18:41)
[2018-06-07] MEDS: Irbesartan 150mg tablet ORAL SCH (08:38)
[2018-06-07] MEDS: [UNRECOGNIZED DRUG - OTHER] TOPIC SCH ×2 (08:39→18:41)
--- NOTE | 2018-06-07 08:47 | General Progress Note ---
Assessment/Plan Assessment/Plan (1) Left LE pain (2) Left LE Cellulitis (3) Lymphedema Patient to be continued on [place] as needed. D/w Dr. Bearden and he concurred. Subjective Date patient seen: Jun 07, 2018 Time patient seen: 07:00 - am Allergies: Coded Allergies: HALOPERIDOL (Verified Allergy, Unknown, 01/28/09) HALOPERIDOL LACTATE (Unverified Allergy, Unknown, 07/30/16) VANCOMYCIN (Unverified Adverse Reaction, Intermediate, Shortness of Breath , 06/26/13) Subjective Constitutional: Reports: weakness HEENT: Reports: no symptoms Cardiovascular: Reports: no symptoms Respiratory: Reports: no symptoms Gastrointestinal/Abdominal: Reports: no symptoms Genitourinary: Reports: no symptoms Neurologic/Psychiatric: Reports: weakness Hematologic/Lymphatic: Reports: no symptoms Subjective Patient reports pain has been stable on the norco. No new complaints at this time. Objective Last 24 Hour Vital Signs Date Time Temp Pulse Resp B/P (MAP) Pulse Ox O2 Delivery O2 Flow Rate FiO2 06/07/18 08:38 168/77 06/07/18 05:22 152/97 06/07/18 04:00 152/97 (115) 06/07/18 00:00 97.5 86 17 156/106 (123) 95 06/06/18 21:13 160/108 06/06/18 21:00 Room Air 06/06/18 20:00 97.1 86 17 160/108 (125) 97 06/06/18 18:13 194/74 06/06/18 16:00 97.7 81 20 178/74 (108) 96 81 06/06/18 13:17 112/74 06/06/18 12:00 98.4 97 19 112/74 (87) 97 Intake and Output 06/06/18 06/07/18 19:00 07:00 Intake Total 720 ml Balance 720 ml Intake Oral 720 ml # Voids 1 3 Laboratory Tests 06/07/18 05:43: White Blood Count 3.4L, Red Blood Count 4.17L, Hemoglobin 10.5L, Hematocrit 34.4L, Mean Corpuscular Volume 83, Mean Corpuscular Hemoglobin 25.3L, Mean Corpuscular Hemoglobin Concent 30.6L, Red Cell Distribution Width 15.8H, Platelet Count 115L, Mean Platelet Volume 6.3L, Neutrophils (%) (Auto) , Lymphocytes (%) (Auto) , Monocytes (%) (Auto) , Eosinophils (%) (Auto) , Basophils (%) (Auto) , Neutrophils % (Manual) [Pending], Lymphocytes % (Manual) [Pending], Platelet Estimate [Pending], Platelet Morphology [Pending], Sodium Level 142, Potassium Level 4.1, Chloride Level 104, Carbon Dioxide Level 31, Anion Gap 8, Blood Urea Nitrogen 23H, Creatinine 0.8, Estimat Glomerular Filtration Rate > 60, Glucose Level 96, Calcium Level 9.1, Phosphorus Level 3.4 , Magnesium Level 1.8, Total Bilirubin 0.3, Aspartate Amino Transf (AST/SGOT) 9L , Alanine Aminotransferase (ALT/SGPT) 13, Alkaline Phosphatase 86, Pro-B-Type Natriuretic Peptide 221H, Total Protein 6.8, Albumin 2.8L, Globulin 4.0, Albumin /Globulin Ratio 0.7L, Valproic Acid (Depakene) Level 57 Height (Feet): 5 Height (Inches): 9.00 Weight (Pounds): 300 Objective General Appearance: no apparent distress, alert EENT: PERRL/EOMI, normal ENT inspection Neck: non-tender, normal alignment Cardiovascular: normal rate, regular rhythm Respiratory/Chest: decreased breath sounds Abdomen: non tender, soft Extremities: other - bandages applied to left LE Edema: severe edema Neurologic: alert, oriented Jordon Julio Jun 07, 2018 08:47
--- NOTE | 2018-06-07 10:45 | GI Progress Note ---
Assessment/Plan Problems: (1) Schizophrenia ICD Codes: F20.9 - Schizophrenia, unspecified SNOMED: 68807860 (2) Opiate dependence (3) Abdominal pain ICD Codes: R10.9 - Abdominal pain SNOMED: 55799513 (4) Chest pain ICD Codes: R07.9 - Chest pain, unspecified SNOMED: 73026488 (5) Depression ICD Codes: F32.9 - Major depressive disorder, single episode, unspecified SNOMED: 77682876 (6) Anemia ICD Codes: D64.9 - Anemia, unspecified SNOMED: 839697723 (7) Constipation Status: stable, unchanged Status Narrative Discussed with Dr. Victoria Assessment/Plan EGD canceled, patient refused. Resume diet Anemia workup reviewed, mild iron deficiency >> venofer OB stool r/o GI bleed monitor H&H, prn transfusions bowel regime ppi fu labs okay for DC per GI standpoint The patient was seen and examined at bedside and all new and available data was reviewed in the patients chart. I agree with the above findings, impression and plan. (Patient seen earlier today. Signature stamp does not reflect patient encounter time.). - Mervin Victoria MD Subjective Subjective Refused EGD Objective Last 24 Hour Vital Signs Date Time Temp Pulse Resp B/P (MAP) Pulse Ox O2 Delivery O2 Flow Rate FiO2 06/07/18 08:38 168/77 06/07/18 05:22 152/97 06/07/18 04:00 152/97 (115) 06/07/18 00:00 97.5 86 17 156/106 (123) 95 06/06/18 21:13 160/108 06/06/18 21:00 Room Air 06/06/18 20:00 97.1 86 17 160/108 (125) 97 06/06/18 18:13 194/74 06/06/18 16:00 97.7 81 20 178/74 (108) 96 81 06/06/18 13:17 112/74 06/06/18 12:00 98.4 97 19 112/74 (87) 97 Intake and Output 06/06/18 06/07/18 19:00 07:00 Intake Total 720 ml Balance 720 ml Intake Oral 720 ml # Voids 1 3 Laboratory Tests Test 06/07/18 05:43 White Blood Count 3.4 K/UL (4.8-10.8) L Red Blood Count 4.17 M/UL (4.20-5.40) L Hemoglobin 10.5 G/DL (12.0-16.0) L Hematocrit 34.4 % (37.0-47.0) L Mean Corpuscular Volume 83 FL (80-99) Mean Corpuscular Hemoglobin 25.3 PG (27.0-31.0) L Mean Corpuscular Hemoglobin Concent 30.6 G/DL (32.0-36.0) L Red Cell Distribution Width 15.8 % (11.6-14.8) H Platelet Count 115 K/UL (150-450) L Mean Platelet Volume 6.3 FL (6.5-10.1) L Neutrophils (%) (Auto) % (45.0-75.0) Lymphocytes (%) (Auto) % (20.0-45.0) Monocytes (%) (Auto) % (1.0-10.0) Eosinophils (%) (Auto) % (0.0-3.0) Basophils (%) (Auto) % (0.0-2.0) Differential Total Cells Counted 100 Neutrophils % (Manual) 49 % (45-75) Lymphocytes % (Manual) 37 % (20-45) Monocytes % (Manual) 10 % (1-10) Eosinophils % (Manual) 4 % (0-3) H Basophils % (Manual) 0 % (0-2) Band Neutrophils 0 % (0-8) Platelet Estimate Decreased L Platelet Morphology Normal Hypochromasia 1+ Anisocytosis 1+ Sodium Level 142 MMOL/L (136-145) Potassium Level 4.1 MMOL/L (3.5-5.1) Chloride Level 104 MMOL/L (98-107) Carbon Dioxide Level 31 MMOL/L (21-32) Anion Gap 8 mmol/L (5-15) Blood Urea Nitrogen 23 mg/dL (7-18) H Creatinine 0.8 MG/DL (0.55-1.30) Estimat Glomerular Filtration Rate > 60 mL/min (>60) Glucose Level 96 MG/DL (74-106) Calcium Level 9.1 MG/DL (8.5-10.1) Phosphorus Level 3.4 MG/DL (2.5-4.9) Magnesium Level 1.8 MG/DL (1.8-2.4) Total Bilirubin 0.3 MG/DL (0.2-1.0) Aspartate Amino Transf (AST/SGOT) 9 U/L (15-37) L Alanine Aminotransferase (ALT/SGPT) 13 U/L (12-78) Alkaline Phosphatase 86 U/L (46-116) Pro-B-Type Natriuretic Peptide 221 pg/mL (0-125) H Total Protein 6.8 G/DL (6.4-8.2) Albumin 2.8 G/DL (3.4-5.0) L Globulin 4.0 g/dL Albumin/Globulin Ratio 0.7 (1.0-2.7) L Valproic Acid (Depakene) Level 57 MCG/ML (50-100) Height (Feet): 5 Height (Inches): 9.00 Weight (Pounds): 300 General Appearance: WD/WN, no apparent distress, alert Cardiovascular: normal rate Respiratory/Chest: normal breath sounds, no respiratory distress Abdominal Exam: normal bowel sounds, non tender, soft Extremities: normal range of motion, non-tender Giovanni Winston NP Jun 07, 2018 10:45
[2018-06-07 12:00] VITALS: BP 162/77
--- NOTE | 2018-06-07 12:30 | General Progress Note ---
Assessment/Plan Problem List: (1) Schizophrenia ICD Codes: F20.9 - Schizophrenia, unspecified SNOMED: 62878591 (2) Opiate dependence Status: unchanged Assessment/Plan Depakote 1500mg po qhs Depakote 500mg po qhs Risperdal 4mg po qhs Avoid pain meds the pt has dependence to Morphine The pt has capacity to refuse meds. valproic acid level within therapeutic level but lower side Subjective Neurologic/Psychiatric: Reports: anxiety, emotional problems Allergies: Coded Allergies: HALOPERIDOL (Verified Allergy, Unknown, 01/28/09) HALOPERIDOL LACTATE (Unverified Allergy, Unknown, 07/30/16) VANCOMYCIN (Unverified Adverse Reaction, Intermediate, Shortness of Breath , 06/26/13) Subjective The pt was labile today the pt was yelling at her nurse the pt is noncompliant at times Objective Last 24 Hour Vital Signs Date Time Temp Pulse Resp B/P (MAP) Pulse Ox O2 Delivery O2 Flow Rate FiO2 06/07/18 09:00 Room Air 06/07/18 08:38 168/77 06/07/18 08:00 97.0 94 168/77 (107) 06/07/18 05:22 152/97 06/07/18 04:00 152/97 (115) 06/07/18 00:00 97.5 86 17 156/106 (123) 95 06/06/18 21:13 160/108 06/06/18 21:00 Room Air 06/06/18 20:00 97.1 86 17 160/108 (125) 97 06/06/18 18:13 194/74 06/06/18 16:00 97.7 81 20 178/74 (108) 96 81 06/06/18 13:17 112/74 Intake and Output 06/06/18 06/07/18 19:00 07:00 Intake Total 720 ml Balance 720 ml Intake Oral 720 ml # Voids 1 3 Laboratory Tests 06/07/18 05:43: White Blood Count 3.4L, Red Blood Count 4.17L, Hemoglobin 10.5L, Hematocrit 34.4L, Mean Corpuscular Volume 83, Mean Corpuscular Hemoglobin 25.3L, Mean Corpuscular Hemoglobin Concent 30.6L, Red Cell Distribution Width 15.8H, Platelet Count 115L, Mean Platelet Volume 6.3L, Neutrophils (%) (Auto) , Lymphocytes (%) (Auto) , Monocytes (%) (Auto) , Eosinophils (%) (Auto) , Basophils (%) (Auto) , Differential Total Cells Counted 100, Neutrophils % ( Manual) 49, Lymphocytes % (Manual) 37, Monocytes % (Manual) 10, Eosinophils % ( Manual) 4H, Basophils % (Manual) 0, Band Neutrophils 0, Platelet Estimate DecreasedL, Platelet Morphology Normal, Hypochromasia 1+, Anisocytosis 1+, Sodium Level 142, Potassium Level 4.1, Chloride Level 104, Carbon Dioxide Level 31, Anion Gap 8, Blood Urea Nitrogen 23H, Creatinine 0.8, Estimat Glomerular Filtration Rate > 60, Glucose Level 96, Calcium Level 9.1, Phosphorus Level 3.4 , Magnesium Level 1.8, Total Bilirubin 0.3, Aspartate Amino Transf (AST/SGOT) 9L , Alanine Aminotransferase (ALT/SGPT) 13, Alkaline Phosphatase 86, Pro-B-Type Natriuretic Peptide 221H, Total Protein 6.8, Albumin 2.8L, Globulin 4.0, Albumin /Globulin Ratio 0.7L, Valproic Acid (Depakene) Level 57 Height (Feet): 5 Height (Inches): 9.00 Weight (Pounds): 300 General Appearance: alert, confused, agitated Harris Ballesteros MD Jun 07, 2018 12:30
--- NOTE | 2018-06-07 13:11 | Infectious Diseases Prog Note ---
Assessment/Plan Assessment/Plan A; Leg cellulitis, more on the left side. UTI with ESBL E.coli stasis dermatitis, chronic lymphedema of legs, hypertension, COPD, schizophrenia, opioid dependence. P; Continue Doxycycline X 1 days Continue Nitrofurantoin X 2 days Subjective ROS Limited/Unobtainable: No HEENT: Reports: no symptoms Respiratory: Reports: no symptoms Cardiovascular: Reports: no symptoms Gastrointestinal/Abdominal: Reports: no symptoms Musculoskeletal: Reports: pain, other - left leg Allergies: Coded Allergies: HALOPERIDOL (Verified Allergy, Unknown, 01/28/09) HALOPERIDOL LACTATE (Unverified Allergy, Unknown, 07/30/16) VANCOMYCIN (Unverified Adverse Reaction, Intermediate, Shortness of Breath , 06/26/13) Objective Vital Signs Last 24 Hour Vital Signs Date Time Temp Pulse Resp B/P (MAP) Pulse Ox O2 Delivery O2 Flow Rate FiO2 06/07/18 09:00 Room Air 06/07/18 08:38 168/77 06/07/18 08:00 97.0 94 168/77 (107) 06/07/18 05:22 152/97 06/07/18 04:00 152/97 (115) 06/07/18 00:00 97.5 86 17 156/106 (123) 95 06/06/18 21:13 160/108 06/06/18 21:00 Room Air 06/06/18 20:00 97.1 86 17 160/108 (125) 97 06/06/18 18:13 194/74 06/06/18 16:00 97.7 81 20 178/74 (108) 96 81 06/06/18 13:17 112/74 Height (Feet): 5 Height (Inches): 9.00 Weight (Pounds): 300 General Appearance: no acute distress HEENT: mucous membranes moist Respiratory/Chest: lungs clear Cardiovascular: normal rate Abdomen: soft, non tender Extremities: other - edema of legs Skin: ulcers, other - left lateral leg Neurologic/Psychiatric: alert, responsive Laboratory Tests Test 06/07/18 05:43 White Blood Count 3.4 K/UL (4.8-10.8) L Red Blood Count 4.17 M/UL (4.20-5.40) L Hemoglobin 10.5 G/DL (12.0-16.0) L Hematocrit 34.4 % (37.0-47.0) L Mean Corpuscular Volume 83 FL (80-99) Mean Corpuscular Hemoglobin 25.3 PG (27.0-31.0) L Mean Corpuscular Hemoglobin Concent 30.6 G/DL (32.0-36.0) L Red Cell Distribution Width 15.8 % (11.6-14.8) H Platelet Count 115 K/UL (150-450) L Mean Platelet Volume 6.3 FL (6.5-10.1) L Neutrophils (%) (Auto) % (45.0-75.0) Lymphocytes (%) (Auto) % (20.0-45.0) Monocytes (%) (Auto) % (1.0-10.0) Eosinophils (%) (Auto) % (0.0-3.0) Basophils (%) (Auto) % (0.0-2.0) Differential Total Cells Counted 100 Neutrophils % (Manual) 49 % (45-75) Lymphocytes % (Manual) 37 % (20-45) Monocytes % (Manual) 10 % (1-10) Eosinophils % (Manual) 4 % (0-3) H Basophils % (Manual) 0 % (0-2) Band Neutrophils 0 % (0-8) Platelet Estimate Decreased L Platelet Morphology Normal Hypochromasia 1+ Anisocytosis 1+ Sodium Level 142 MMOL/L (136-145) Potassium Level 4.1 MMOL/L (3.5-5.1) Chloride Level 104 MMOL/L (98-107) Carbon Dioxide Level 31 MMOL/L (21-32) Anion Gap 8 mmol/L (5-15) Blood Urea Nitrogen 23 mg/dL (7-18) H Creatinine 0.8 MG/DL (0.55-1.30) Estimat Glomerular Filtration Rate > 60 mL/min (>60) Glucose Level 96 MG/DL (74-106) Calcium Level 9.1 MG/DL (8.5-10.1) Phosphorus Level 3.4 MG/DL (2.5-4.9) Magnesium Level 1.8 MG/DL (1.8-2.4) Total Bilirubin 0.3 MG/DL (0.2-1.0) Aspartate Amino Transf (AST/SGOT) 9 U/L (15-37) L Alanine Aminotransferase (ALT/SGPT) 13 U/L (12-78) Alkaline Phosphatase 86 U/L (46-116) Pro-B-Type Natriuretic Peptide 221 pg/mL (0-125) H Total Protein 6.8 G/DL (6.4-8.2) Albumin 2.8 G/DL (3.4-5.0) L Globulin 4.0 g/dL Albumin/Globulin Ratio 0.7 (1.0-2.7) L Valproic Acid (Depakene) Level 57 MCG/ML (50-100) Current Medications Medications (Trade) Dose Ordered Sig/Shiraz Route PRN Reason Start Time Stop Time Status Last Admin Dose Admin Acetaminophen (Tylenol) 650 mg Q4H PRN ORAL Mild Pain/Temp > 100.5 06/02/18 19:00 06/30/18 18:59 Acetaminophen/ Hydrocodone Bitart (Sunray 5/325) 1 tab Q4H PRN ORAL Moderate Pain (Pain Scale 4-6) 06/02/18 19:30 06/07/18 19:29 06/06/18 01:16 Clonidine HCl (Catapres Tab) 0.1 mg Q4H PRN ORAL bp over 165 syst 06/02/18 19:00 07/01/18 18:59 06/06/18 18:13 Clotrimazole (Lotrimin) 1 applic BID TOPIC 06/03/18 09:00 07/01/18 17:59 06/07/18 08:39 Divalproex Sodium (Depakote) 500 mg DAILY ORAL 06/08/18 09:00 07/08/18 08:59 Divalproex Sodium (Depakote) 1,500 mg BEDTIME ORAL 06/07/18 21:00 07/07/18 20:59 Docusate Sodium (Colace) 100 mg THREE TIMES A DAY ORAL 06/03/18 09:00 06/30/18 12:59 06/07/18 12:51 Doxycycline Monohydrate (Vibramycin) 100 mg EVERY 12 HOURS ORAL 06/04/18 13:00 06/11/18 12:59 06/07/18 08:38 Hydralazine HCl (Apresoline) 50 mg Q8HR ORAL 06/02/18 22:00 06/30/18 17:59 06/07/18 05:22 Irbesartan (Avapro) 150 mg DAILY ORAL 06/03/18 09:00 07/02/18 08:59 06/07/18 08:38 Latanoprost (Xalatan) 1 drop BEDTIME BOTH EYES 06/02/18 21:00 06/30/18 20:59 Nitrofurantoin (Macrobid) 100 mg EVERY 12 HOURS ORAL 06/04/18 13:00 07/04/18 12:59 06/07/18 08:37 Ondansetron HCl (Zofran) 4 mg Q6H PRN IVP Nausea & Vomiting 06/02/18 19:30 07/02/18 19:29 06/03/18 12:15 Pantoprazole (Protonix) 40 mg Q12HR ORAL 06/02/18 21:00 06/30/18 08:59 06/07/18 08:38 Patient Own Medication (Patient's Own Med) 1 ea BID TOPIC 06/03/18 09:00 06/30/18 17:59 06/07/18 08:39 Polyethylene Glycol (Miralax) 17 gm BEDTIME ORAL 06/02/18 21:00 06/30/18 20:59 06/06/18 21:13 Potassium Chloride (K-Dur) 20 meq DAILY ORAL 06/03/18 09:00 06/30/18 08:59 06/06/18 08:26 Risperidone (RisperDAL) 6 mg BEDTIME ORAL 06/07/18 21:00 07/07/18 20:59 Spironolactone (Aldactone) 25 mg DAILY ORAL 06/03/18 09:00 07/01/18 08:59 06/07/18 08:37 Temazepam (Restoril) 15 mg HSPRN PRN ORAL Insomnia 06/03/18 22:30 06/10/18 22:29 06/06/18 21:16 Jamie Ivy MD Jun 07, 2018 13:11
[2018-06-07 16:00] VITALS: BP 166/79
--- NOTE | 2018-06-07 17:29 | Nephrology Progress Note ---
Assessment/Plan Problem List: (1) HTN (hypertension) (2) Obesity (3) Lymphedema of both lower extremities Assessment 1. Bilateral lower extremity lymphedema, 2. Noncardiac chest pain. 3. Morbid obesity. 4. Accelerated hypertension. now controlled 5. Anxiety Disorder 5. COPD Plan add clonidin patch for high BP Labs reviewed Hydralazine , and Avapro continue Clonidine for PRN 2D echo pending per cardio and Psych ua and U c/s Subjective ROS Limited/Unobtainable: No Constitutional: Reports: malaise Objective Objective Last 24 Hour Vital Signs Date Time Temp Pulse Resp B/P (MAP) Pulse Ox O2 Delivery O2 Flow Rate FiO2 06/07/18 14:40 162/102 06/07/18 09:00 Room Air 06/07/18 08:38 168/77 06/07/18 08:00 97.0 94 168/77 (107) 06/07/18 05:22 152/97 06/07/18 04:00 152/97 (115) 06/07/18 00:00 97.5 86 17 156/106 (123) 95 06/06/18 21:13 160/108 06/06/18 21:00 Room Air 06/06/18 20:00 97.1 86 17 160/108 (125) 97 06/06/18 18:13 194/74 Intake and Output 06/06/18 06/07/18 19:00 07:00 Intake Total 720 ml Balance 720 ml Intake Oral 720 ml # Voids 1 3 Laboratory Tests 06/07/18 05:43: White Blood Count 3.4L, Red Blood Count 4.17L, Hemoglobin 10.5L, Hematocrit 34.4L, Mean Corpuscular Volume 83, Mean Corpuscular Hemoglobin 25.3L, Mean Corpuscular Hemoglobin Concent 30.6L, Red Cell Distribution Width 15.8H, Platelet Count 115L, Mean Platelet Volume 6.3L, Neutrophils (%) (Auto) , Lymphocytes (%) (Auto) , Monocytes (%) (Auto) , Eosinophils (%) (Auto) , Basophils (%) (Auto) , Differential Total Cells Counted 100, Neutrophils % ( Manual) 49, Lymphocytes % (Manual) 37, Monocytes % (Manual) 10, Eosinophils % ( Manual) 4H, Basophils % (Manual) 0, Band Neutrophils 0, Platelet Estimate DecreasedL, Platelet Morphology Normal, Hypochromasia 1+, Anisocytosis 1+, Sodium Level 142, Potassium Level 4.1, Chloride Level 104, Carbon Dioxide Level 31, Anion Gap 8, Blood Urea Nitrogen 23H, Creatinine 0.8, Estimat Glomerular Filtration Rate > 60, Glucose Level 96, Calcium Level 9.1, Phosphorus Level 3.4 , Magnesium Level 1.8, Total Bilirubin 0.3, Aspartate Amino Transf (AST/SGOT) 9L , Alanine Aminotransferase (ALT/SGPT) 13, Alkaline Phosphatase 86, Pro-B-Type Natriuretic Peptide 221H, Total Protein 6.8, Albumin 2.8L, Globulin 4.0, Albumin /Globulin Ratio 0.7L, Valproic Acid (Depakene) Level 57 Height (Feet): 5 Height (Inches): 9.00 Weight (Pounds): 300 General Appearance: no apparent distress Objective no change Theodore Cardoza MD Jun 07, 2018 17:29
--- NOTE | 2018-06-07 19:09 | NUR ---
CASE MANAGEMENT: REVIEW 06/07/2018 SI: CHEST PAIN . ACS T 98 HR 91 RR 17 B/P 166/79 SATS 95% ON RA WBC 3.4 BUN 23 AST 9 BNP 221 IS: K-DUR PO QD ALDACTONE PO QD KEFLEX PO Q6HR PROTONIX PO Q12HR MED/SURG STATUS DCP: PATIENT IS FROM [facility]
--- NOTE | 2018-06-07 19:33 | NUR ---
NURSE NOTES: Received patient on bed awake, no s/s of any distress, denies any pain, no IV line noted. Bed in low position and locked, call light within reach, will continue to monitor.
--- NOTE | 2018-06-07 19:33 | NUR ---
HAND-OFF: Report given to NOEL Smith.
[2018-06-07 20:00] VITALS: BP 159/103
--- NOTE | 2018-06-07 20:03 | General Progress Note ---
Assessment/Plan Assessment/Plan Assessment/Recommendations # Anemia of chronic disease (or of iron deficiency) due to underlying chronic medical issues, multifactorial --> Anemia workup --> No evidence of hemolysis is noted, peripheral smear has been reviewed. --> Hgb goal >7. Transfuse prn. 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 doxycycline # stasis dermatitis # chronic lymphedema of legs, recommend compression stockings with high pressure ~25 to 30 mmHg. # Abdominal pain, EGD canceled, patient refused. # Chest pain, Chest pain is pleuritic more so with her cough, 12-lead electrocardiogram does not show any evidence of ischemia. Negative troponin levels. # Depression # Constipation , OB stool r/o GI bleed The timing of this note does not necessarily reflect the time of the patient was seen. Greatly appreciate consultation! Subjective Constitutional: Denies: no symptoms, chills, diaphoresis, fever, malaise, weakness, other HEENT: Denies: no symptoms, eye pain, blurred vision, tearing, double vision, ear pain, ear discharge, nose pain, nose congestion, throat pain, throat swelling, mouth pain, mouth swelling, other Cardiovascular: Denies: no symptoms, chest pain, edema, irregular heart rate, lightheadedness, palpitations, syncope, other Respiratory: Denies: no symptoms, cough, orthopnea, shortness of breath, SOB with excertion, SOB at rest, sputum, stridor, wheezing, other Gastrointestinal/Abdominal: Denies: no symptoms, abdomen distended, abdominal pain, black stools, tarry stools, blood in stool, constipated, diarrhea, difficulty swallowing, nausea, poor appetite, poor fluid intake, rectal bleeding , vomiting, other Genitourinary: Denies: no symptoms, burning, discharge, frequency, flank pain, hematuria, incontinence, pain, urgency, other Neurologic/Psychiatric: Denies: no symptoms, anxiety, depressed, emotional problems, headache, numbness, paresthesia, pre-existing deficit, seizure, tingling, tremors, weakness, other Endocrine: Denies: no symptoms, excessive sweating, flushing, intolerance to cold, intolerance to heat, increased hunger, increased thirst, increased urine, unexplained weight gain, unexplained weight loss, other Hematologic/Lymphatic: Denies: no symptoms, anemia, easy bleeding, easy bruising, other Allergies: Coded Allergies: HALOPERIDOL (Verified Allergy, Unknown, 01/28/09) HALOPERIDOL LACTATE (Unverified Allergy, Unknown, 07/30/16) VANCOMYCIN (Unverified Adverse Reaction, Intermediate, Shortness of Breath , 06/26/13) Subjective 06/06: seen by bedside, comfortable, no distress reported, plt 139 06/07: awake, comfortable, no acute distress, cbc reviewed, plt trending down at 115. Objective Last 24 Hour Vital Signs Date Time Temp Pulse Resp B/P (MAP) Pulse Ox O2 Delivery O2 Flow Rate FiO2 06/07/18 18:00 160/98 06/07/18 16:00 98.0 91 166/79 (108) 06/07/18 14:40 162/102 06/07/18 12:00 97.8 89 162/77 (105) 06/07/18 09:00 Room Air 06/07/18 08:38 168/77 06/07/18 08:00 97.0 94 168/77 (107) 06/07/18 05:22 152/97 06/07/18 04:00 152/97 (115) 06/07/18 00:00 97.5 86 17 156/106 (123) 95 06/06/18 21:13 160/108 06/06/18 21:00 Room Air Intake and Output 06/06/18 06/07/18 19:00 07:00 Intake Total 720 ml Balance 720 ml Intake Oral 720 ml # Voids 1 3 Laboratory Tests 06/07/18 05:43: White Blood Count 3.4L, Red Blood Count 4.17L, Hemoglobin 10.5L, Hematocrit 34.4L, Mean Corpuscular Volume 83, Mean Corpuscular Hemoglobin 25.3L, Mean Corpuscular Hemoglobin Concent 30.6L, Red Cell Distribution Width 15.8H, Platelet Count 115L, Mean Platelet Volume 6.3L, Neutrophils (%) (Auto) , Lymphocytes (%) (Auto) , Monocytes (%) (Auto) , Eosinophils (%) (Auto) , Basophils (%) (Auto) , Differential Total Cells Counted 100, Neutrophils % ( Manual) 49, Lymphocytes % (Manual) 37, Monocytes % (Manual) 10, Eosinophils % ( Manual) 4H, Basophils % (Manual) 0, Band Neutrophils 0, Platelet Estimate DecreasedL, Platelet Morphology Normal, Hypochromasia 1+, Anisocytosis 1+, Sodium Level 142, Potassium Level 4.1, Chloride Level 104, Carbon Dioxide Level 31, Anion Gap 8, Blood Urea Nitrogen 23H, Creatinine 0.8, Estimat Glomerular Filtration Rate > 60, Glucose Level 96, Calcium Level 9.1, Phosphorus Level 3.4 , Magnesium Level 1.8, Total Bilirubin 0.3, Aspartate Amino Transf (AST/SGOT) 9L , Alanine Aminotransferase (ALT/SGPT) 13, Alkaline Phosphatase 86, Pro-B-Type Natriuretic Peptide 221H, Total Protein 6.8, Albumin 2.8L, Globulin 4.0, Albumin /Globulin Ratio 0.7L, Valproic Acid (Depakene) Level 57 Height (Feet): 5 Height (Inches): 9.00 Weight (Pounds): 300 Objective PHYSICAL EXAMINATION: VITAL SIGNS: Reviewed GENERAL APPEARANCE: Seems to be obese. HEAD AND NECK: [place] conjunctiva. HEART: Normal rate. LUNGS: Clear. ABDOMEN: Soft and nontender. EXTREMITIES: Bilateral edema of lower extremities, has dressing in the left lower extremity, erythema and tenderness in the right lower extremity patient dosen't left opening of the dressing. NEUROLOGIC: Awake and alert. Yao Aden MD Jun 07, 2018 20:03
[2018-06-07] MEDS ORDERED: Depakote 500mg tab ORAL SCH (21:00)
[2018-06-07] MEDS: Miralax 17gm pkt ORAL SCH (21:00)
[2018-06-07] MEDS: Latanoprost 0.005% Opth 2.5ml Soln BOTH EYES SCH (21:00)
--- NOTE | 2018-06-07 22:04 | General Progress Note ---
Assessment/Plan Problem List: (1) Anemia ICD Codes: D64.9 - Anemia, unspecified SNOMED: 602611421 (2) Depression ICD Codes: F32.9 - Major depressive disorder, single episode, unspecified SNOMED: 93770223 (3) Opiate dependence (4) Cough ICD Codes: R05 - Cough SNOMED: 06866783 (5) Schizophrenia ICD Codes: F20.9 - Schizophrenia, unspecified SNOMED: 40819395 (6) Sepsis ICD Codes: A41.9 - Sepsis, unspecified organism SNOMED: 62721302 (7) GERD (gastroesophageal reflux disease) ICD Codes: K21.9 - Gastro-esophageal reflux disease without esophagitis SNOMED: 960024179 (8) Nausea ICD Codes: R11.0 - Nausea SNOMED: 780067646 (9) Left leg cellulitis ICD Codes: L03.116 - Cellulitis of left lower limb SNOMED: 257770652 Status: progressing Assessment/Plan needs placement obesity cellulitis improving vitals stable afebrile hallucination reviewed meds and labs Subjective ROS Limited/Unobtainable: Yes Allergies: Coded Allergies: HALOPERIDOL (Verified Allergy, Unknown, 01/28/09) HALOPERIDOL LACTATE (Unverified Allergy, Unknown, 07/30/16) VANCOMYCIN (Unverified Adverse Reaction, Intermediate, Shortness of Breath , 06/26/13) Objective Last 24 Hour Vital Signs Date Time Temp Pulse Resp B/P (MAP) Pulse Ox O2 Delivery O2 Flow Rate FiO2 06/07/18 21:04 159/103 06/07/18 20:00 98.2 97 18 159/103 (121) 97 06/07/18 18:00 160/98 06/07/18 16:00 98.0 91 166/79 (108) 06/07/18 14:40 162/102 06/07/18 12:00 97.8 89 162/77 (105) 06/07/18 09:00 Room Air 06/07/18 08:38 168/77 06/07/18 08:00 97.0 94 168/77 (107) 06/07/18 05:22 152/97 06/07/18 04:00 152/97 (115) 06/07/18 00:00 97.5 86 17 156/106 (123) 95 Intake and Output 06/06/18 06/07/18 18:59 06:59 Intake Total 720 ml Balance 720 ml Intake Oral 720 ml # Voids 1 3 Laboratory Tests 06/07/18 05:43: White Blood Count 3.4L, Red Blood Count 4.17L, Hemoglobin 10.5L, Hematocrit 34.4L, Mean Corpuscular Volume 83, Mean Corpuscular Hemoglobin 25.3L, Mean Corpuscular Hemoglobin Concent 30.6L, Red Cell Distribution Width 15.8H, Platelet Count 115L, Mean Platelet Volume 6.3L, Neutrophils (%) (Auto) , Lymphocytes (%) (Auto) , Monocytes (%) (Auto) , Eosinophils (%) (Auto) , Basophils (%) (Auto) , Differential Total Cells Counted 100, Neutrophils % ( Manual) 49, Lymphocytes % (Manual) 37, Monocytes % (Manual) 10, Eosinophils % ( Manual) 4H, Basophils % (Manual) 0, Band Neutrophils 0, Platelet Estimate DecreasedL, Platelet Morphology Normal, Hypochromasia 1+, Anisocytosis 1+, Sodium Level 142, Potassium Level 4.1, Chloride Level 104, Carbon Dioxide Level 31, Anion Gap 8, Blood Urea Nitrogen 23H, Creatinine 0.8, Estimat Glomerular Filtration Rate > 60, Glucose Level 96, Calcium Level 9.1, Phosphorus Level 3.4 , Magnesium Level 1.8, Total Bilirubin 0.3, Aspartate Amino Transf (AST/SGOT) 9L , Alanine Aminotransferase (ALT/SGPT) 13, Alkaline Phosphatase 86, Pro-B-Type Natriuretic Peptide 221H, Total Protein 6.8, Albumin 2.8L, Globulin 4.0, Albumin /Globulin Ratio 0.7L, Valproic Acid (Depakene) Level 57 Height (Feet): 5 Height (Inches): 9.00 Weight (Pounds): 300 General Appearance: confused EENT: PERRL/EOMI Cardiovascular: normal rate Respiratory/Chest: chest wall non-tender Abdomen: soft Nima Bolden MD Jun 07, 2018 22:04
[2018-06-08 04:00] VITALS: BP 139/93
[2018-06-08] MEDS: HydrALAZINE 50mg tab ORAL SCH ×2 (05:31→13:21)
--- NOTE | 2018-06-08 07:09 | NUR ---
NURSE NOTES: received report from NOEL Smith. patient in bed sleeping. no respiratory distress noted. bed in the lowest position. call light within reach. alarm on. will continue to monitor.
--- NOTE | 2018-06-08 07:25 | NUR ---
HAND-OFF: Report given to Isi COHEN.
[2018-06-08 08:00] VITALS: BP 141/70
--- NOTE | 2018-06-08 08:42 | NUR ---
NURSE NOTES: Patient insisted to sign AMA. explained the procedures but the patient took elevator by herself. notified Dr. morocho. obtained sign on the AMA paper. escorted the patient on the first floor. patient changed her mind to stay at hospital because raining outside.
[2018-06-08] MEDS: Spironolactone 25mg tab ORAL SCH (08:48)
[2018-06-08] MEDS: Irbesartan 150mg tablet ORAL SCH (08:48)
[2018-06-08] MEDS: Docusate 100mg cap ORAL SCH ×2 (08:49→13:00)
[2018-06-08] MEDS: [UNRECOGNIZED DRUG - OTHER] TOPIC SCH (08:50)
[2018-06-08] MEDS ORDERED: Depakote 500mg tab ORAL SCH (09:00)
--- NOTE | 2018-06-08 11:15 | General Progress Note ---
Assessment/Plan Problem List: (1) Schizophrenia ICD Codes: F20.9 - Schizophrenia, unspecified SNOMED: 47185852 (2) Opiate dependence Assessment/Plan Depakote 1500mg po qhs Depakote 500mg po qhs Risperdal 6mg po qhs Avoid pain meds the pt has dependence to Morphine The pt has capacity to refuse meds. valproic acid level within therapeutic level but lower side Subjective Allergies: Coded Allergies: HALOPERIDOL (Verified Allergy, Unknown, 01/28/09) HALOPERIDOL LACTATE (Unverified Allergy, Unknown, 07/30/16) VANCOMYCIN (Unverified Adverse Reaction, Intermediate, Shortness of Breath , 06/26/13) Subjective The pt was labile today the pt was yelling at her nurse the pt is noncompliant at times the pt wanted to leave ama but changed her mind the pt is irritable Objective Last 24 Hour Vital Signs Date Time Temp Pulse Resp B/P (MAP) Pulse Ox O2 Delivery O2 Flow Rate FiO2 06/08/18 09:00 Room Air 06/08/18 08:48 141/70 06/08/18 08:00 97.6 94 22 141/70 (93) 98 06/08/18 05:31 139/93 06/08/18 04:00 98.6 99 20 139/93 (108) 97 06/07/18 21:04 159/103 06/07/18 21:00 Room Air 06/07/18 20:00 98.2 97 18 159/103 (121) 97 06/07/18 18:00 160/98 06/07/18 16:00 98.0 91 166/79 (108) 06/07/18 14:40 162/102 06/07/18 12:00 97.8 89 162/77 (105) Intake and Output 06/07/18 06/08/18 19:00 07:00 Intake Total 800 ml 750 ml Balance 800 ml 750 ml Intake Oral 800 ml 750 ml # Voids 3 5 Height (Feet): 5 Height (Inches): 9.00 Weight (Pounds): 300 General Appearance: WD/WN, no apparent distress, alert, agitated, morbidly obese Harris Ballesteros MD Jun 08, 2018 11:15
--- NOTE | 2018-06-08 11:26 | NUR ---
NURSE NOTES: Dr. Ballesteros seen the patient. patient has capacity to sign for AMA if needed.
--- NOTE | 2018-06-08 11:35 | GI Progress Note ---
Assessment/Plan Problems: (1) Schizophrenia ICD Codes: F20.9 - Schizophrenia, unspecified SNOMED: 21830639 (2) Opiate dependence (3) Abdominal pain ICD Codes: R10.9 - Abdominal pain SNOMED: 50920528 (4) Chest pain ICD Codes: R07.9 - Chest pain, unspecified SNOMED: 68171911 (5) Depression ICD Codes: F32.9 - Major depressive disorder, single episode, unspecified SNOMED: 61584525 (6) Anemia ICD Codes: D64.9 - Anemia, unspecified SNOMED: 322371121 (7) Constipation Status: stable Status Narrative Discussed with Dr. Victoria Assessment/Plan EGD canceled, patient refused. Resume diet Anemia workup reviewed, mild iron deficiency >> venofer OB stool r/o GI bleed monitor H&H, prn transfusions bowel regime ppi fu labs okay for DC per GI standpoint The patient was seen and examined at bedside and all new and available data was reviewed in the patients chart. I agree with the above findings, impression and plan. (Patient seen earlier today. Signature stamp does not reflect patient encounter time.). - Mervin Victoria MD Subjective Subjective Refused EGD Objective Last 24 Hour Vital Signs Date Time Temp Pulse Resp B/P (MAP) Pulse Ox O2 Delivery O2 Flow Rate FiO2 06/08/18 09:00 Room Air 06/08/18 08:48 141/70 06/08/18 08:00 97.6 94 22 141/70 (93) 98 06/08/18 05:31 139/93 06/08/18 04:00 98.6 99 20 139/93 (108) 97 06/07/18 21:04 159/103 06/07/18 21:00 Room Air 06/07/18 20:00 98.2 97 18 159/103 (121) 97 06/07/18 18:00 160/98 06/07/18 16:00 98.0 91 166/79 (108) 06/07/18 14:40 162/102 06/07/18 12:00 97.8 89 162/77 (105) Intake and Output 06/07/18 06/08/18 19:00 07:00 Intake Total 800 ml 750 ml Balance 800 ml 750 ml Intake Oral 800 ml 750 ml # Voids 3 5 Height (Feet): 5 Height (Inches): 9.00 Weight (Pounds): 300 General Appearance: WD/WN, no apparent distress, alert, morbidly obese Cardiovascular: normal rate Respiratory/Chest: normal breath sounds, no respiratory distress Abdominal Exam: normal bowel sounds, non tender, soft Extremities: normal range of motion, non-tender Giovanni Winston NP Jun 08, 2018 11:35
[2018-06-08 12:00] VITALS: BP 136/79
[2018-06-08 13:21] VITALS: BP 136/79
--- NOTE | 2018-06-08 13:31 | Infectious Diseases Prog Note ---
Assessment/Plan Assessment/Plan A; Leg cellulitis, more on the left side. UTI with ESBL E.coli stasis dermatitis, chronic lymphedema of legs, hypertension, COPD, schizophrenia, opioid dependence. P; discontinue Doxycycline Continue Nitrofurantoin X 1 days Subjective ROS Limited/Unobtainable: No Respiratory: Reports: no symptoms Cardiovascular: Reports: no symptoms Gastrointestinal/Abdominal: Reports: no symptoms Genitourinary: Reports: no symptoms Allergies: Coded Allergies: HALOPERIDOL (Verified Allergy, Unknown, 01/28/09) HALOPERIDOL LACTATE (Unverified Allergy, Unknown, 07/30/16) VANCOMYCIN (Unverified Adverse Reaction, Intermediate, Shortness of Breath , 06/26/13) Objective Vital Signs Last 24 Hour Vital Signs Date Time Temp Pulse Resp B/P (MAP) Pulse Ox O2 Delivery O2 Flow Rate FiO2 06/08/18 13:21 136/79 06/08/18 12:00 97.8 100 22 136/79 (98) 96 06/08/18 09:00 Room Air 06/08/18 08:48 141/70 06/08/18 08:00 97.6 94 22 141/70 (93) 98 06/08/18 05:31 139/93 06/08/18 04:00 98.6 99 20 139/93 (108) 97 06/07/18 21:04 159/103 06/07/18 21:00 Room Air 06/07/18 20:00 98.2 97 18 159/103 (121) 97 06/07/18 18:00 160/98 06/07/18 16:00 98.0 91 166/79 (108) 06/07/18 14:40 162/102 Height (Feet): 5 Height (Inches): 9.00 Weight (Pounds): 300 General Appearance: no acute distress HEENT: mucous membranes moist Respiratory/Chest: lungs clear Cardiovascular: normal rate Abdomen: soft, non tender Extremities: other - legs edema Skin: ulcers, other - superficial left leg Neurologic/Psychiatric: alert, responsive Current Medications Medications (Trade) Dose Ordered Sig/Shiraz Route PRN Reason Start Time Stop Time Status Last Admin Dose Admin Acetaminophen (Tylenol) 650 mg Q4H PRN ORAL Mild Pain/Temp > 100.5 06/02/18 19:00 06/30/18 18:59 06/08/18 02:02 Clonidine HCl (Catapres TTS-3) 1 patch QWEEK TDERMAL 06/07/18 18:00 07/07/18 17:59 06/07/18 18:00 Clonidine HCl (Catapres Tab) 0.1 mg Q4H PRN ORAL bp over 165 syst 06/02/18 19:00 07/01/18 18:59 06/06/18 18:13 Clotrimazole (Lotrimin) 1 applic BID TOPIC 06/03/18 09:00 07/01/18 17:59 06/08/18 08:50 Divalproex Sodium (Depakote) 500 mg DAILY ORAL 06/08/18 09:00 07/08/18 08:59 06/08/18 08:48 Divalproex Sodium (Depakote) 1,500 mg BEDTIME ORAL 06/07/18 21:00 07/07/18 20:59 06/07/18 21:01 Docusate Sodium (Colace) 100 mg THREE TIMES A DAY ORAL 06/03/18 09:00 06/30/18 12:59 06/07/18 18:41 Doxycycline Monohydrate (Vibramycin) 100 mg EVERY 12 HOURS ORAL 06/04/18 13:00 06/11/18 12:59 06/08/18 08:50 Hydralazine HCl (Apresoline) 50 mg Q8HR ORAL 06/02/18 22:00 06/30/18 17:59 06/08/18 13:21 Irbesartan (Avapro) 150 mg DAILY ORAL 06/03/18 09:00 07/02/18 08:59 06/08/18 08:48 Latanoprost (Xalatan) 1 drop BEDTIME BOTH EYES 06/02/18 21:00 06/30/18 20:59 Nitrofurantoin (Macrobid) 100 mg EVERY 12 HOURS ORAL 06/04/18 13:00 07/04/18 12:59 06/08/18 08:49 Ondansetron HCl (Zofran) 4 mg Q6H PRN IVP Nausea & Vomiting 06/02/18 19:30 07/02/18 19:29 06/03/18 12:15 Pantoprazole (Protonix) 40 mg Q12HR ORAL 06/02/18 21:00 06/30/18 08:59 06/08/18 08:48 Patient Own Medication (Patient's Own Med) 1 ea BID TOPIC 06/03/18 09:00 06/30/18 17:59 06/08/18 08:50 Polyethylene Glycol (Miralax) 17 gm BEDTIME ORAL 06/02/18 21:00 06/30/18 20:59 06/07/18 21:00 Potassium Chloride (K-Dur) 20 meq DAILY ORAL 06/03/18 09:00 06/30/18 08:59 06/06/18 08:26 Risperidone (RisperDAL) 6 mg BEDTIME ORAL 06/07/18 21:00 07/07/18 20:59 06/07/18 21:00 Spironolactone (Aldactone) 25 mg DAILY ORAL 06/03/18 09:00 07/01/18 08:59 06/08/18 08:48 Temazepam (Restoril) 15 mg HSPRN PRN ORAL Insomnia 06/03/18 22:30 06/10/18 22:29 06/07/18 21:00 Jamie Ivy MD Jun 08, 2018 13:31
--- NOTE | 2018-06-08 13:51 | NUR ---
CHARGE NURSE NOTES: PATIENT ALERT, ORIENTED. WANTS TO LEAVE AMA. PER PATIENT SHE WANTS TO GO HOME. CONTACTED DR. RUSSELL. PER MD , NOT DISCHARGING AT THIS TIME , CONTACT DR. VALDES. DR. VALDES SAYS PATIENT HAS CAPACITY TO MAKE DECISION. RISK AND BENEFIT EXPLAINED. STILL INSISTS OF GOING HOME. 1340 PATIENT LEFT AMA. WITH NO IV ACCESS. BELONGINGS WITH PATIENT. OBTAINED CONSENT ON DESTINATION UPON DISCHARGE FOR HOMELESS FROM PATIENT. AND PENITENTIARY LIST PROVIDED. DR. RUSSELL AWARE OF AMA.
--- NOTE | 2018-06-08 14:14 | NUR ---
*-* INSURANCE *-* ALL CLINICALS,REVIEWS AND INTERQUAL HAVE BEEN FAXED Corie ELMER/YARELIS JHA:DELROY F:[phone]
--- NOTE | 2018-06-08 14:53 | Nephrology Progress Note ---
Assessment/Plan Problem List: (1) HTN (hypertension) (2) Obesity (3) Lymphedema of both lower extremities Assessment 1. Bilateral lower extremity lymphedema, 2. Noncardiac chest pain. 3. Morbid obesity. 4. Accelerated hypertension. now controlled 5. Anxiety Disorder 5. COPD Plan add clonidin patch for high BP Labs reviewed Hydralazine , and Avapro continue Clonidine for PRN per cardio and Psych ua and U c/s Dc planning? Subjective ROS Limited/Unobtainable: No Interval Events/Complaints seen at 9 am Constitutional: Reports: malaise Objective Objective Last 24 Hour Vital Signs Date Time Temp Pulse Resp B/P (MAP) Pulse Ox O2 Delivery O2 Flow Rate FiO2 06/08/18 13:21 136/79 06/08/18 12:00 97.8 100 22 136/79 (98) 96 06/08/18 09:00 Room Air 06/08/18 08:48 141/70 06/08/18 08:00 97.6 94 22 141/70 (93) 98 06/08/18 05:31 139/93 06/08/18 04:00 98.6 99 20 139/93 (108) 97 06/07/18 21:04 159/103 06/07/18 21:00 Room Air 06/07/18 20:00 98.2 97 18 159/103 (121) 97 06/07/18 18:00 160/98 06/07/18 16:00 98.0 91 166/79 (108) Intake and Output 06/07/18 06/08/18 19:00 07:00 Intake Total 800 ml 750 ml Balance 800 ml 750 ml Intake Oral 800 ml 750 ml # Voids 3 5 Height (Feet): 5 Height (Inches): 9.00 Weight (Pounds): 300 General Appearance: no apparent distress Objective no change Theodore Cardoza MD Jun 08, 2018 14:53
--- NOTE | 2018-06-08 21:07 | General Progress Note ---
Assessment/Plan Assessment/Plan Assessment/Recommendations # Anemia of chronic disease (or of iron deficiency) due to underlying chronic medical issues, multifactorial --> Anemia workup --> No evidence of hemolysis is noted, peripheral smear has been reviewed. --> Hgb goal >7. Transfuse prn. 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 doxycycline # stasis dermatitis # chronic lymphedema of legs, recommend compression stockings with high pressure ~25 to 30 mmHg. # Abdominal pain, EGD canceled, patient refused. # Chest pain, Chest pain is pleuritic more so with her cough, 12-lead electrocardiogram does not show any evidence of ischemia. Negative troponin levels. # Depression # Constipation , OB stool r/o GI bleed The timing of this note does not necessarily reflect the time of the patient was seen. Greatly appreciate consultation! Subjective Constitutional: Denies: no symptoms, chills, diaphoresis, fever, malaise, weakness, other HEENT: Denies: no symptoms, eye pain, blurred vision, tearing, double vision, ear pain, ear discharge, nose pain, nose congestion, throat pain, throat swelling, mouth pain, mouth swelling, other Cardiovascular: Denies: no symptoms, chest pain, edema, irregular heart rate, lightheadedness, palpitations, syncope, other Respiratory: Denies: no symptoms, cough, orthopnea, shortness of breath, SOB with excertion, SOB at rest, sputum, stridor, wheezing, other Gastrointestinal/Abdominal: Denies: no symptoms, abdomen distended, abdominal pain, black stools, tarry stools, blood in stool, constipated, diarrhea, difficulty swallowing, nausea, poor appetite, poor fluid intake, rectal bleeding , vomiting, other Neurologic/Psychiatric: Denies: no symptoms, anxiety, depressed, emotional problems, headache, numbness, paresthesia, pre-existing deficit, seizure, tingling, tremors, weakness, other Endocrine: Denies: no symptoms, excessive sweating, flushing, intolerance to cold, intolerance to heat, increased hunger, increased thirst, increased urine, unexplained weight gain, unexplained weight loss, other Hematologic/Lymphatic: Denies: no symptoms, anemia, easy bleeding, easy bruising, other Allergies: Coded Allergies: HALOPERIDOL (Verified Allergy, Unknown, 01/28/09) HALOPERIDOL LACTATE (Unverified Allergy, Unknown, 07/30/16) VANCOMYCIN (Unverified Adverse Reaction, Intermediate, Shortness of Breath , 06/26/13) Subjective 06/06: seen by bedside, comfortable, no distress reported, plt 139 06/07: awake, comfortable, no acute distress, cbc reviewed, plt trending down at 115. 06/08 seen by beside, awake, comfortable, denies acute distress. Objective Last 24 Hour Vital Signs Date Time Temp Pulse Resp B/P (MAP) Pulse Ox O2 Delivery O2 Flow Rate FiO2 06/08/18 13:21 136/79 06/08/18 12:00 97.8 100 22 136/79 (98) 96 06/08/18 09:00 Room Air 06/08/18 08:48 141/70 06/08/18 08:00 97.6 94 22 141/70 (93) 98 06/08/18 05:31 139/93 06/08/18 04:00 98.6 99 20 139/93 (108) 97 Intake and Output 06/07/18 06/08/18 19:00 07:00 Intake Total 800 ml 750 ml Balance 800 ml 750 ml Intake Oral 800 ml 750 ml # Voids 3 5 Height (Feet): 5 Height (Inches): 9.00 Weight (Pounds): 300 Objective PHYSICAL EXAMINATION: VITAL SIGNS: Reviewed GENERAL APPEARANCE: Seems to be obese. HEAD AND NECK: [place] conjunctiva. HEART: Normal rate. LUNGS: Clear. ABDOMEN: Soft and nontender. EXTREMITIES: Bilateral edema of lower extremities, has dressing in the left lower extremity, erythema and tenderness in the right lower extremity patient dosen't left opening of the dressing. NEUROLOGIC: Awake and alert. Yao Aden MD Jun 08, 2018 21:07
--- NOTE | 2018-06-08 21:50 | Cardiology Progress Note ---
Assessment/Plan Assessment/Plan 1. Bilateral lower extremity lymphedema, recommend compression stockings with high pressure ~25 to 30 mmHg. 2. Noncardiac chest pain. Chest pain is pleuritic more so with her cough. A 12-lead electrocardiogram does not show any evidence of ischemia. Negative troponin levels. 3. Morbid obesity. 4. Accelerated hypertension, well controlled, will continue to monitor, in the meantime continue hydralazine, aldactone and Irbesartan. 5. Sinus tachycardia, likely due to hypovolemia. Subjective Genitourinary: Denies: no symptoms, burning, discharge, frequency, flank pain, hematuria, incontinence, pain, urgency, other Subjective No cardiac events reported. In non-telemetry bed. Objective Last 24 Hour Vital Signs Date Time Temp Pulse Resp B/P (MAP) Pulse Ox O2 Delivery O2 Flow Rate FiO2 06/08/18 13:21 136/79 06/08/18 12:00 97.8 100 22 136/79 (98) 96 06/08/18 09:00 Room Air 06/08/18 08:48 141/70 06/08/18 08:00 97.6 94 22 141/70 (93) 98 06/08/18 05:31 139/93 06/08/18 04:00 98.6 99 20 139/93 (108) 97 Intake and Output 06/07/18 06/08/18 19:00 07:00 Intake Total 800 ml 750 ml Balance 800 ml 750 ml Intake Oral 800 ml 750 ml # Voids 3 5 Objective HEENT: Atraumatic and normocephalic. Anicteric. Pupils are equal, round, and reactive to light and accommodation. NECK: JVP cannot be assessed due to morbid obesity. No carotid bruit. CVS: Normal S1, S2. Regular rate and rhythm. Tachycardic. No murmurs, gallops , or rubs. PMI is at fourth intercostal space in the midclavicular. LUNGS: Diminished breath sounds in both bases. ABDOMEN: Distended. Due to obesity, cannot appreciate any hepatosplenomegaly. Positive bowel sounds. EXTREMITIES: There is 3 to 4+ bilateral lower extremity edema with the squaring of the toes, thickened skin over the legs like the orange peel. Ulises Haro MD Jun 08, 2018 21:50
--- NOTE | 2018-06-09 16:21 | Discharge Summary ---
Discharge Summary Discharge Summary _ DATE OF ADMISSION: 05/30/2018 DATE OF DISCHARGE: 06/08/2018 CONSULTANTS: Dr. Ulises Alvarez BRIEF HOSPITAL COURSE: Patient is a 67-year-old female, who presented to ED after increased abdominal pain. She had a prior history of chronic nonhealing wounds to her lower extremities. She she had been having increased discomfort to the mid abdomen and increased chest pain. Chest pain was worsened by cough. Patient was a previous smoker. She has history of hypertension, COPD, chronic venous stasis, depression, opiate dependence, morbid obesity, history of schizophrenia, mood disorder, GERD and glaucoma. On evaluation at the ED, blood pressure was elevated to 191/102, pulse rate 73. Blood work did not show any leukocytosis. Hemoglobin and hematocrit were stable. Electrolytes were normal. Kidney function stable. Initial troponin was 0.014. LFTs and lipase were normal. She had an EKG done that showed normal sinus rhythm with a rate of [address] changes. She was given GI cocktail. Due to her risk factors, she was admitted for evaluation of chest pain. She was admitted to the monitored floor. Cardiac enzymes were monitored. Blood pressure was monitored. She was given hydralazine and prn clonidine. GI was consulted. Patient was complaining of pain to the epigastric region. Patient had abdominal tenderness on palpation, however no abdominal distention. She was advised EGD. She was given proton pump inhibitors and bowel regimen. Patient was scheduled for EGD, however, procedure was canceled as patient refused. Cardiac evaluation was done. Patient had chest pain which was pleuritic. Twelve-lead electrocardiogram did not show any evidence of ischemia. She was noted to have bilateral lower extremity lymphedema. She was recommended compression stockings with 25-30 mmHg pressure. She was seen by vascular surgeon. Patient had venous edema with left leg cellulitis. Feet felt warm with intact dopplers. Feet were well-perfused. She had intact pedal dopplers with no significant arterial insufficiency. She was recommended leg elevation. She was given topical wound care. She was placed on decubitus and DVT precautions. Troponin levels were negative. Psychiatrist was consulted. Patient was agitated and was refusing procedures. She has pain med seeking behavior. She was given Depakote 750 mg p.o. twice daily and Risperdal 4 mg p.o. nightly. She was assessed to have the capacity to refuse medications. Pain management was consulted. Patient was complaining of lower extremity pain. She was given [place]. ID was consulted for evaluation of left leg cellulitis. She was started on cephalexin and p.o. doxycycline. She was noted to have rash on the inframammary breast fold region. She was given clotrimazole. Urine culture showed growth of gram-negative rods. Keflex was discontinued. She was started on Levaquin. Doxycycline was continued. Urine culture showed growth of ESBL E. coli. Organism was resistant to levofloxacin. Antibiotic was switched to nitrofurantoin. Patient had anemia. Anemia workup showed serum iron 30, percent saturation 11, ferritin 27. She was given a dose of Venofer. She was also noted to have thrombocytopenia, likely related to hep C infection. HIV panel was negative. Antihypertensives were adjusted. She was given hydralazine, Aldactone and irbesartan. Clonidine patch TTS-3 100. Patient needed placement. Prior [facility] refused to take patient back. Patient was referred to another facility. Patient wanted to leave AMA. Patient was AAO and was assessed to have the capacity to sign AMA. Patient left against medical advise. FINAL DIAGNOSES: ESBL E. coli UTI Bilateral lower extremity lymphedema Noncardiac chest pain, chest pain was was pleuritic associated with her cough Morbid obesity Accelerated hypertension Sinus tachycardia due to hypovolemia Anemia of chronic disease or of iron deficiency due to underlying chronic medical issues Thrombocytopenia likely related to hepatitis C Bilateral leg venous stasis dermatitis Depression Constipation Anxiety disorder COPD Schizophrenia Opioid dependence Noncompliance DISPOSITION: Patient left against medical advise. I have been assigned to complete a discharge summary on this account, I was not involved with the patient's management. Julee Gonzalez NP Jun 09, 2018 16:21
== END 2018-06-08 13:47 | disposition left against medical advice (07) | DRG 145 ==
LOC: EMR 19:17 → EDBEDREQ 19:23 → 2E 19:28 → EDBEDREQ 05-31 09:35 → 4E 06-02 18:52
DX: R07.1 Chest pain on breathing (principal); D69.6 Thrombocytopenia, unspecified; F20.9 Schizophrenia, unspecified; E66.01 Morbid (severe) obesity due to excess calories; F11.20 Opioid dependence, uncomplicated; J44.9 Chronic obstructive pulmonary disease, unspecified; L03.116 Cellulitis of left lower limb; Z68.41 Body mass index [BMI] 40.0-44.9, adult; K59.00 Constipation, unspecified; R07.89 Other chest pain; Z91.19 Patient's noncompliance with other medical treatment and regimen; K21.9 Gastro-esophageal reflux disease without esophagitis; F32.9 Major depressive disorder, single episode, unspecified; I89.0 Lymphedema, not elsewhere classified; I87.2 Venous insufficiency (chronic) (peripheral); D50.9 Iron deficiency anemia, unspecified; N39.0 Urinary tract infection, site not specified; I10 Essential (primary) hypertension; F41.9 Anxiety disorder, unspecified; Z16.12 Extended spectrum beta lactamase (ESBL) resistance; B96.20 Unspecified Escherichia coli [E. coli] as the cause of diseases classified elsewhere; R00.0 Tachycardia, unspecified; R21 Rash and other nonspecific skin eruption; B19.20 Unspecified viral hepatitis C without hepatic coma; Z87.891 Personal history of nicotine dependence
CPT/HCPCS: 36415; 71045; 80048; 80053; 80061; 80164; 81001; 82378; 82550; 82607; 82728; 82746; 82977; 83036; 83540; 83550; 83690; 83735; 83880; 84100; 84439; 84443; 84484; 84550; 85007; 85025; 85044; 85610; 85730; 86140; 87081; 87086; 87181; 93005; 94640; 99285; J2405; J7620; J8499

== ENCOUNTER 2018-06-13 16:31 | Emergency (ER) | payer MEDICAID ==
[~2018-06-13] VITALS: Ht 157.5 cm; Wt 136.1 kg
--- NOTE | 2018-06-13 16:39 | NUR ---
ED Nurse Note: not in wr
--- NOTE | 2018-06-13 16:46 | NUR ---
ED Nurse Note:not in wr
--- NOTE | 2018-06-13 17:03 | NUR ---
ED Nurse Note:not in wr
[2018-06-13] MEDS ORDERED: NKM (18:11)
--- NOTE | 2018-06-13 18:25 | NUR ---
ED Nurse Note: pt wheelchaired in c/o chronic leg pain. noted edema on BLE but cms intact and cap refill <3sec. will cont monitor.
[2018-06-13 18:40] VITALS: BP 167/102
--- NOTE | 2018-06-13 18:44 | Emergency Room Report ---
History of Present Illness General Chief Complaint: Lower Extremity Injury Source: Patient Present Illness HPI 67-year-old female patient presents the ER complaining of requesting to be admitted because "she has no place to go". Patient is well-known to this ER, previously seen and admitted approximately 1 week ago before leaving AMA. Patient reports that "I did not mean to" leave AMA and "I'm sorry about that". Contrary to triage report is not complaining of leg pain. Patient had initially been attempted to be contacted but was not found in the waiting room, was in the cafeteria eating food. Denies fever, chest pain, shortness of breath , abdominal pain. Denies flank pain. Denies vomiting or diarrhea. Initially complained of pain with urination however denies pain currently. Allergies: Coded Allergies: HALOPERIDOL (Verified Allergy, Unknown, 01/28/09) HALOPERIDOL LACTATE (Unverified Allergy, Unknown, 07/30/16) VANCOMYCIN (Unverified Adverse Reaction, Intermediate, Shortness of Breath , 06/26/13) Patient History Past Medical History: see triage record Last Menstrual Period: none Now: No Reviewed Nursing Documentation: PMH: Agreed; PSxH: Agreed Nursing Documentation-PMH Past Medical History: No History, Except For Hx Cardiac Problems: Yes Hx Hypertension: Yes Hx Asthma: No Hx COPD: Yes Hx Cancer: No Hx Gastrointestinal Problems: Yes Hx Dialysis: No History Of Psychiatric Problem: Yes Hx Neurological Problems: Yes Hx Cerebrovascular Accident: No Hx Seizures: No Hx Weakness: Yes Hx Fatigue: Yes Hx Neurologic Surgery: No Review of Systems All Other Systems: negative except mentioned in HPI Physical Exam Vital Signs Date Time Temp Pulse Resp B/P (MAP) Pulse Ox O2 Delivery O2 Flow Rate FiO2 06/13/18 18:02 97.9 117 20 177/122 96 Room Air Sp02 EP Interpretation: reviewed, normal General Appearance: well appearing, no apparent distress, alert, GCS 15, non- toxic Head: normocephalic, atraumatic Eyes: bilateral eye normal inspection, bilateral eye PERRL ENT: hearing grossly normal, normal pharynx, no angioedema, normal voice, uvula midline, moist mucus membranes Neck: full range of motion Respiratory: lungs clear, normal breath sounds, no rhonchi, no respiratory distress, no accessory muscle use, no wheezing, speaking full sentences Cardiovascular #1: regular rate, rhythm, edema Gastrointestinal: non tender, soft, no mass, non-distended, no guarding, no rebound Genitourinary: no CVA tenderness Musculoskeletal: back normal, digits/nails normal, gait/station normal, normal range of motion, non-tender Neurologic: alert, oriented x3, responsive, motor strength/tone normal, sensory intact Skin: no rash Medical Decision Making PA Attestation Dr. Rubin is my supervising Physician whom patient management has been discussed with. Homeless Attestation I, The treating provider, Arnaldo WONG, has assessed and agrees that patient is medically stable for discharge to an outpatient disposition. Diagnostic Impression: Primary Impression: Chronic pain ER Course Pt. presents to the ED c/o wanting to be admitted. Multiple differentials considered. Vital signs: are WNL, pt. is afebrile, mild tachycardia noted, will treat recheck vitals. Patient denies chest pain or shortness of breath, does not require cardiac workup at this time. ER COURSE: Denies acute complaints currently, advised patient follow-up with primary care provider. Okay for outpatient follow-up and treatment. Vitals stable. ER precautions given. DISCHARGE: At this time pt is stable for d/c to home. Patient is resting comfortably, in no acute distress, nontoxic appearing, talking without difficulty. Patient to take medications as instructed Will provide with patient care instructions and any necessary prescriptions. Care plan and follow-up instructions provided. Patient instructed to follow-up with primary care provider in 3 - 5 days. Patient questions asked and answered. Patient reports understanding and agreement to treatment plan. ER precautions given. Patient instructed to return to ER immediately for any new or worsening of symptoms including but not limited to increasing SOB, persistent fever, chest pain, intractable vomiting. - Please note that this Emergency Department Report was dictated using [employer] therapy [employer] teacher technology software, occasionally this can lead to erroneous entry secondary to interpretation by the dictation equipment. Last Vital Signs Date Time Temp Pulse Resp B/P (MAP) Pulse Ox O2 Delivery O2 Flow Rate FiO2 06/13/18 18:02 97.9 117 20 177/122 96 Room Air Disposition: HOME, SELF-CARE Condition: Stable Patient Instructions: Chronic Pain Additional Instructions: Followup with primary care provider in 3 -5 days. Take medications as directed. Patient questions asked and answered. ER precautions given, patient instructed to return to ER immediately for any new or worsening of symptoms. Arnaldo Murray Jun 13, 2018 18:44
--- NOTE | 2018-06-13 19:00 | NUR ---
ED Nurse Note: pt refused to provide urine sample, pt states she doesn't have to go to restroom. ER provider notified.
[2018-06-13 20:00] VITALS: BP 167/103
--- NOTE | 2018-06-13 20:00 | NUR ---
ED Nurse Note: pt is cleared to be d/c per ERMD, pt discharge and aftercare instruction provided, pt advised to follow up with pcp or return to ed if sx worsen or new sx develop, pt verbalized understanding and agrees with plan. pt wrist band removed, acewrap applied. pt is homeless and states she has place to go but refused to provide address. spoke with [facility], states they have room and stated they will take the pt. pt advised to [facility], pt states she will decide. pt was given sandwich and juice, list of free clinic and shelters.
== END 2018-06-13 20:00 | disposition home or self-care (01) ==
LOC: EMR 18:44
DX: G89.29 Other chronic pain (principal); I10 Essential (primary) hypertension; J44.9 Chronic obstructive pulmonary disease, unspecified; Z88.1 Allergy status to other antibiotic agents; Z88.8 Allergy status to other drugs, medicaments and biological substances
CPT/HCPCS: 99282

== ENCOUNTER 2018-07-09 15:44 | Emergency (ER) | payer MEDICAID ==
[~2018-07-09] VITALS: Ht 167.6 cm; Wt 135.2 kg
--- NOTE | 2018-07-09 16:11 | Emergency Room Report ---
History of Present Illness General Chief Complaint: General Complaint Source: Patient Present Illness HPI Patient presents with genital, rectal and intertriginous rashes that are red and uncomfortable. The patient states that she's not been using any treatment recently. She's been signing out AGAINST MEDICAL ADVICE from the hospital. Denies any fevers or chills. There is no dysuria. The patient has chronic venous stasis ulcers of her left leg. She states that this was recently rewrapped and does not need to be taking care of right now. She has a wheelchair. Patient has a history of schizophrenia. She denies suicidal or homicidal ideation. She is angry at staff frequently. She has a chronic cough and smokes. There is no chest pain. No nausea, vomiting or diarrhea. She is somewhat constipated. Allergies: Coded Allergies: ERYTHROMYCIN BASE (Verified Allergy, Severe, 07/09/18) VANCOMYCIN (Unverified Adverse Reaction, Intermediate, Shortness of Breath , 06/26/13) Patient History Past Medical History: see triage record Social History: Reports: smoking; Denies: alcohol use, drug use Social History Narrative Homeless Last Menstrual Period: na Reviewed Nursing Documentation: PMH: Agreed; PSxH: Agreed Nursing Documentation-PMH Past Medical History: No History, Except For Hx Cardiac Problems: Yes Hx Hypertension: Yes Hx Asthma: No Hx COPD: Yes Hx Cancer: No Hx Gastrointestinal Problems: Yes Hx Dialysis: No History Of Psychiatric Problem: Yes Hx Neurological Problems: Yes Hx Cerebrovascular Accident: No Hx Seizures: No Hx Weakness: Yes Hx Fatigue: Yes Hx Neurologic Surgery: No Review of Systems All Other Systems: negative except mentioned in HPI Physical Exam Vital Signs Date Time Temp Pulse Resp B/P (MAP) Pulse Ox O2 Delivery O2 Flow Rate FiO2 07/09/18 15:53 97.9 118 20 200/120 96 Room Air Sp02 EP Interpretation: reviewed, normal General Appearance: no apparent distress, obese, Chronically Ill Head: normocephalic, atraumatic Eyes: bilateral eye normal inspection, bilateral eye PERRL ENT: hearing grossly normal, normal voice, moist mucus membranes - Poor dentition Neck: full range of motion, supple Respiratory: chest non-tender, lungs clear, normal breath sounds, no respiratory distress, rhonchi, speaking full sentences Cardiovascular #1: regular rate, rhythm Cardiovascular #2: 2+ radial (R) Gastrointestinal: normal bowel sounds, non tender, overweight Rectal: other - Perianal inflammation Genitourinary: no CVA tenderness, other - Intertrigo Musculoskeletal: back normal, no calf tenderness, other - Homans sign negative Neurologic: alert, speech normal, motor weakness - lower extremities, oriented - X2 Psychiatric: no suicidal/homicidal ideation, other - Labile and occasionally threatening staff Skin: other - Intertrigo and ecchymoses right lower abdomen, Unna boot left lower extremity, venous stasis ulcers right Medical Decision Making Homeless Attestation I, The treating physician Dr. Davis, has assessed that patient is medically stable for discharge to an outpatient disposition. Diagnostic Impression: Primary Impression: Intertrigo Additional Impressions: Cellulitis Qualified Codes: L03.818 - Cellulitis of other sites HTN (hypertension) Qualified Codes: I10 - Essential (primary) hypertension Schizophrenia Qualified Codes: F20.89 - Other schizophrenia BMI 45.0-49.9, adult Venous stasis ulcers Qualified Codes: I83.008 - Varicose veins of unspecified lower extremity with ulcer other part of lower leg; L97.809 - Non-pressure chronic ulcer of other part of unspecified lower leg with unspecified severity Chronic bronchitis Qualified Codes: J41.0 - Simple chronic bronchitis ER Course Patient presents with skin rash. Differential includes intertrigo, fungal, cellulitis amongst others. She also has a bruise in the right lower quadrant. The abdomen is soft and therefore intra-abdominal pathology is highly unlikely. Evaluation with labs. The patient needs local topical care. The chronic venous stasis ulcer is not a problem today. She is difficult and that she has schizophrenia and is fairly labile. We will try to tailor her treatment to her requests. Patient refuses blood. Clotrimazole and bacitracin applied to the inflamed and infected areas. The patient had some pain relief with this. The patient refuses further evaluation and treatment. Diltiazem given for blood pressure. Given the patient's refusal of different aspects of her care the patient is stable for outpatient observation and treatment. Patient refused discharge vital signs. Status: improved Disposition: HOME, SELF-CARE Condition: Improved Scripts Acetaminophen (Tylenol) 325 Mg Tablet 650 MG ORAL Q6H PRN for Prn Pain/Headache/Temp > 101, #20 TAB 0 Refills Prov: Jerome Davis MD 07/09/18 Bacitracin (Bacitracin) 28.4 Gm Oint...g. 1 APPLIC TOPIC BID, #90 GM Prov: Jerome Davis MD 07/09/18 Clotrimazole* (LOTRIMIN*) 15 Gm Cream..g. 1 APPLIC TOPIC TWICE A DAY, #90 GM Prov: Jerome Davis MD 07/09/18 Jerome Davis MD Jul 09, 2018 16:11
[2018-07-09] MEDS ORDERED: Bacitracin Oint UD TOPIC ONE (16:15)
--- NOTE | 2018-07-09 16:34 | NUR ---
ED Nurse Note: Pt came in the ER complains of buttock pain, stated she had 2 appendicitis attacks and having pain 10/10 katt. HR 112, BP 200/120 at triage. Will cont to monitor.
[2018-07-09] MEDS ORDERED: dilTIAZem HCl 60mg tab ORAL ONE (17:00)
[2018-07-09] MEDS ORDERED: CLOTRIMAZOLE15 GM TOPIC (17:01)
[2018-07-09] MEDS ORDERED: TYLENOL325 MG ORAL (17:01)
[2018-07-09] MEDS ORDERED: BACITRACIN15 GM TOPIC (17:01)
--- NOTE | 2018-07-09 17:19 | NUR ---
ED Nurse Note: pt refused to retake the vital signs after receiving BP medication. Pt states, "it's stupid. I just want my papers and sandwich.". Notified ERMD that pt refused vital signs.
[2018-07-09 17:22] VITALS: BP 200/120
--- NOTE | 2018-07-09 17:23 | NUR ---
Homeless Discharge: Patient is being discharged from medical care. Awake, alert and oriented x4. After care instructions, including referral to community resources were given. Patient verbalized understanding of After care instructions; at this time patient does not request medications, equipment or placement. Patient signed patient consent in the medical record for patient destination upon discharge. All medical devices such as IV and ID band were removed. Patient left with all the belongings. Refused to provide address of the location she is going to but stated, " I am going to [place] by bus". Pt refused to take vital signs before getting discharge. SHAI and IVANA Bassett are aware. [place] and water provided by pt. Pt is well dressed and left with her wheelchair.
== END 2018-07-09 17:22 | disposition home or self-care (01) ==
LOC: EMR 16:26
DX: L30.4 Erythema intertrigo (principal); L03.90 Cellulitis, unspecified; I10 Essential (primary) hypertension; J44.9 Chronic obstructive pulmonary disease, unspecified; F20.9 Schizophrenia, unspecified; I83.028 Varicose veins of left lower extremity with ulcer other part of lower leg; L97.829 Non-pressure chronic ulcer of other part of left lower leg with unspecified severity; Z88.1 Allergy status to other antibiotic agents
CPT/HCPCS: 99282

== ENCOUNTER 2019-12-12 20:05 | Inpatient (IN) | payer MEDICAID ==
[~2019-12-12] VITALS: Ht 167.6 cm; Wt 153.0 kg
[~2019-12-12 20:05] MED LIST changes: +BACITRACIN15 GM TOPIC; +CLOTRIMAZOLE15 GM TOPIC; +DOCUSATE SODIU100 MG ORAL; +ROBAXIN-750750 MG PO; +TYLENOL EXTRA500 MG ORAL; +TYLENOL325 MG ORAL
--- NOTE | 2019-12-12 20:10 | NUR ---
ED Nurse Note: wheelchaired in to ed c.o generalized body pain s/p fall from wheelchair x2 today. states hitting head but denies loc. tachy of 135 and ermd aware, otherwise vss, nad, aaox3, nonambulatory. ermd at bedside.
[2019-12-12] MEDS ORDERED: Solu-MEDROL 125mg Inj IVP ONE (20:45)
[2019-12-12] MEDS ORDERED: Albuterol ud Inhalation HHN ONE (20:45)
[2019-12-12] MEDS ORDERED: Ipratropium 0.02% Inh Soln 2.5ml UD HHN ONE (20:45)
--- NOTE | 2019-12-12 20:50 | NUR ---
ED Nurse Note: blood, urine, and covid collected and sent to lab
--- NOTE | 2019-12-12 20:54 | Emergency Room Report ---
History of Present Illness General Chief Complaint: Pain Source: Patient Present Illness HPI Disclaimer: Please note that this report is being documented using [employer] technology. This can lead to erroneous entry secondary to incorrect interpretation by the dictating instrument. HPI: 69-year-old female history of multiple medical problems including schizophrenia, hypertension, CHF, obesity, COPD, tobacco dependence presented from the street due to feelings of generalized weakness and wheezing. She states she slipped out of her wheelchair twice today and is having "pain all over her body ". She is not very specific about any specific trauma. She denied any head neck or back pain when specifically asked. She denies any chest pain but does report mild shortness of breath. She is an extremely poor historian. She states she was recently admitted to a residential facility but signed out AGAINST MEDICAL ADVICE. Allergies: Coded Allergies: ERYTHROMYCIN BASE (Verified Allergy, Severe, 12/12/19) HALOPERIDOL (Verified Allergy, Unknown, 12/12/19) VANCOMYCIN (Unverified Adverse Reaction, Intermediate, Shortness of Breath , 12/12/19) COVID-19 Screening Contact w/high risk pt: No Experienced COVID-19 symptoms?: No COVID-19 Testing performed TRANSPORT MANAGER: No Patient History Last Menstrual Period: unknown Now: No Reviewed Nursing Documentation: PMH: Agreed; PSxH: Agreed Nursing Documentation-PMH Past Medical History: No History, Except For Hx Cardiac Problems: Yes Hx Hypertension: Yes Hx Asthma: No Hx COPD: Yes Hx Cancer: No Hx Gastrointestinal Problems: Yes Hx Dialysis: No Hx Neurological Problems: Yes Hx Cerebrovascular Accident: No Hx Seizures: No Hx Weakness: Yes Hx Fatigue: Yes Hx Neurologic Surgery: No Review of Systems All Other Systems: negative except mentioned in HPI Physical Exam Vital Signs Date Time Temp Pulse Resp B/P (MAP) Pulse Ox O2 Delivery O2 Flow Rate FiO2 12/12/19 20:08 98.6 75 20 128/84 (99) 95 Room Air Sp02 EP Interpretation: reviewed, normal General Appearance: no apparent distress, obese, other - Poorly groomed Head: normocephalic, atraumatic Eyes: bilateral eye PERRL, bilateral eye EOMI ENT: hearing grossly normal, moist mucus membranes Neck: full range of motion, supple, other - No midline tenderness Respiratory: no rhonchi, no respiratory distress, wheezing - Expiratory wheezing bilaterally Cardiovascular #1: normal peripheral pulses, regular rate, rhythm, no murmur Gastrointestinal: non tender, soft, non-distended, no guarding Neurologic: alert, oriented x3, no focal defects Psychiatric: other - Poor judgment, poor attention, no suicidal or homicidal ideation, labile mood Skin: warm/dry, other - Bruising noted to bilateral upper extremities Medical Decision Making Diagnostic Impression: Primary Impression: Atrial fibrillation with RVR Additional Impressions: Urinary tract infection CHF exacerbation History of schizophrenia ER Course MDM: Differential diagnosis included but not limited to failure to thrive, fluid overload, atrial fibrillation with RVR, CHF, medication noncompliance, pneumonia, gravely disabled, decompensated schizophrenia to name a few Clinical course-IV cardiac monitoring laboratory studies chest x-ray, Patient given diltiazem IV for A. fib with RVR. She was given IV Lasix for mild fluid overload. Urinalysis consistent with UTI. Previous culture was reviewed by me and showed evidence of ESBL UTI sensitive to Zosyn. IV antibiotics were given. Patient will be admitted to the telemetry floor. I did give p.o. respite all based on previous psychiatric evaluations as an inpatient. Given for pain. I have low suspicion for serious traumatic injury. Patient had no signs of serious head trauma and was otherwise neurologically intact on my exam. Labs - Laboratory Tests Test 12/12/19 20:40 12/12/19 21:00 White Blood Count 8.9 K/UL (4.8-10.8) Red Blood Count 5.02 M/UL (4.20-5.40) Hemoglobin 13.9 G/DL (12.0-16.0) Hematocrit 43.2 % (37.0-47.0) Mean Corpuscular Volume 86 FL (80-99) Mean Corpuscular Hemoglobin 27.7 PG (27.0-31.0) Mean Corpuscular Hemoglobin Concent 32.2 G/DL (32.0-36.0) Red Cell Distribution Width 15.8 % (11.6-14.8) H Platelet Count 226 K/UL (150-450) Mean Platelet Volume 7.8 FL (6.5-10.1) Neutrophils (%) (Auto) 79.8 % (45.0-75.0) H Lymphocytes (%) (Auto) 11.2 % (20.0-45.0) L Monocytes (%) (Auto) 8.3 % (1.0-10.0) Eosinophils (%) (Auto) 0.1 % (0.0-3.0) Basophils (%) (Auto) 0.6 % (0.0-2.0) Prothrombin Time 11.8 SEC (9.30-11.50) H Prothrombin Time INR 1.1 (0.9-1.1) Activated Partial Thromboplast Time 20 SEC (23-33) L Sodium Level 142 MMOL/L (136-145) Potassium Level 4.1 MMOL/L (3.5-5.1) Chloride Level 100 MMOL/L (98-107) Carbon Dioxide Level 31 MMOL/L (21-32) Anion Gap 11 mmol/L (5-15) Blood Urea Nitrogen 43 mg/dL (7-18) H Creatinine 2.3 MG/DL (0.55-1.30) H Estimated Glomerular Filtration Rate 21.1 mL/min (>60) Glucose Level 134 MG/DL (74-106) H Calcium Level 10.5 MG/DL (8.5-10.1) H Total Bilirubin 0.6 MG/DL (0.2-1.0) Aspartate Amino Transferase (AST) 31 U/L (15-37) Alanine Aminotransferase (ALT) 29 U/L (12-78) Alkaline Phosphatase 96 U/L (46-116) Troponin I 0.002 ng/mL (0.000-0.056) Pro-B-Type Natriuretic Peptide 05547 pg/mL (0-125) H Total Protein 9.0 G/DL (6.4-8.2) H Albumin 4.1 G/DL (3.4-5.0) Globulin 4.9 g/dL Albumin/Globulin Ratio 0.8 (1.0-2.7) L Urine Color Yellow Urine Appearance Cloudy Urine pH 5 (4.5-8.0) Urine Specific [place] 1.025 (1.005-1.035) Urine Protein 3+ (NEGATIVE) H Urine Glucose (UA) Negative (NEGATIVE) Urine Ketones 1+ (NEGATIVE) H Urine Blood 4+ (NEGATIVE) H Urine Nitrite Negative (NEGATIVE) Urine Bilirubin 2+ (NEGATIVE) H Urine Ictotest Negative (NEGATIVE) Urine Urobilinogen 1 MG/DL (0.0-1.0) H Urine Leukocyte Esterase 3+ (NEGATIVE) H Urine RBC 10-15 /HPF (0 - 2) H Urine WBC Tntc /HPF (0 - 2) H Urine Squamous Epithelial Cells Moderate /LPF (NONE/OCC) H Urine Bacteria Many /HPF (NONE) H Microbiology Date/Time Source Procedure Growth Status 12/12/19 20:40 Nasopharynx SARS-CoV-2 RdRp Gene Assay - Final Complete On reevaluation: Heart rate improved Plan-admission to the telemetry floor EKG Diagnostic Results Rate: tachycardiac Rhythm: other - Atrial fibrillation ST Segments: no acute changes Other Impression Atrial fibrillation with RVR Rhythm Strip Diag. Results EP Interpretation: yes Rate: 111 Rhythm: other - Atrial fibrillation Chest X-Ray Diagnostic Results Chest X-Ray Diagnostic Results : Chest X-Ray Ordered: Yes # of Views/Limited/Complete: 1 View Indication: Shortness of Breath EP Interpretation: Yes Interpretation: no consolidation, other - Cardiomegaly with mild pulmonary vascular congestion Impression: Other - Pulmonary vascular congestion Electronically Signed by: Wang Mabry MD Last Vital Signs Date Time Temp Pulse Resp B/P (MAP) Pulse Ox O2 Delivery O2 Flow Rate FiO2 12/12/19 20:08 98.6 75 20 128/84 (99) 95 Room Air Status: improved Disposition: ADMITTED INPATIENT Condition: Serious Wang Mabry M.D. Dec 12, 2019 20:54
[2019-12-12 21:14] LABS: BASOPHILS % (AUTO) 0.6 % (0.0-2.0); EOSINOPHILS % (AUTO) 0.1 % (0.0-3.0); HEMATOCRIT 43.2 % (37.0-47.0); HEMOGLOBIN 13.9 G/DL (12.0-16.0); LYMPHOCYTES % (AUTO) 11.2 % (20.0-45.0); MEAN CORPUSCULAR VOLUME 86 FL (80-99); MONOCYTES % (AUTO) 8.3 % (1.0-10.0); NEUTROPHILS % (AUTO) 79.8 % (45.0-75.0); PLATELET COUNT 226 K/UL (150-450); RED BLOOD COUNT 5.02 M/UL (4.20-5.40); RED CELL DISTRIBUTION WIDTH 15.8 % (11.6-14.8); WHITE BLOOD COUNT 8.9 K/UL (4.8-10.8)
[2019-12-12 21:16] VITALS: BP 141/93
--- NOTE | 2019-12-12 21:20 | NUR ---
ED Nurse Note: pt hr consistently in 140s. ermd notified. will carry out order
[2019-12-12 21:24] LABS: ANION GAP 11 mmol/L (5-15); BLOOD UREA NITROGEN 43 mg/dL (7-18); CALCIUM 10.5 MG/DL (8.5-10.1); CARBON DIOXIDE 31 MMOL/L (21-32); CHLORIDE 100 MMOL/L (98-107); CREATININE 2.3 MG/DL (0.55-1.30); POTASSIUM 4.1 MMOL/L (3.5-5.1); SODIUM 142 MMOL/L (136-145)
[2019-12-12 21:25] LABS: APPEARANCE,URINE CLOUDY; BILIRUBIN, URINE 2+ (NEGATIVE); GLUCOSE, URINE (UA) NEGATIVE (NEGATIVE); KETONES,URINE 1+ (NEGATIVE); LEUKOCYTE ESTERASE ,URINE 3+ (NEGATIVE); NITRITE,URINE NEGATIVE (NEGATIVE); PH,URINE 5 (4.5-8.0); PROTEIN,URINE 3+ (NEGATIVE); UROBILINOGEN,URINE 1 MG/DL (0.0-1.0)
[2019-12-12 21:27] LABS: COLOR,URINE YELLOW
[2019-12-12] MEDS ORDERED: dilTIAZem HCl 25mg/5ml Inj IVP ONE ×2 (21:30→22:30)
[2019-12-12] MEDS ORDERED: Acetaminophen 650mg/20.3ml NG ONE (21:30)
[2019-12-12 21:33] LABS: INR 1.1 (0.9-1.1)
[2019-12-12 21:34] LABS: ALANINE AMINOTRANSFERASE 29 U/L (12-78); ALBUMIN 4.1 G/DL (3.4-5.0); ALBUMIN/GLOBULIN RATIO 0.8 (1.0-2.7); ALKALINE PHOSPHATASE 96 U/L (46-116); ASPARTATE AMINO TRANSFERASE 31 U/L (15-37); BILIRUBIN,TOTAL 0.6 MG/DL (0.2-1.0)
--- NOTE | 2019-12-12 21:47 | NUR ---
ED Nurse Note: rt at bedside
[2019-12-12] MEDS ORDERED: Piperacillin/Tazobactam 3.375 GM in NS 110 ML IVPB ONE (22:00)
[2019-12-12] MEDS ORDERED: Nitroglycerin Subl 0.4mg tab SL PRN (22:15)
[2019-12-12] MEDS ORDERED: Milk of Magnesia 30ml Ud ORAL PRN (22:15)
[2019-12-12 22:17] VITALS: BP 138/95
[2019-12-12 22:39] VITALS: BP 136/91
--- NOTE | 2019-12-12 22:45 | NUR ---
TRANSFER TO FLOOR: Patient transferred to 212 as ordered, per dr orellana. Report given to tian mosquera. Belongings sent with patient
--- NOTE | 2019-12-12 23:00 | NUR ---
NURSE NOTES: Important Events on Shift: Pt transferred from ER to 2E Tele Patient Status: Stable Diet: ANNA Pending Orders: 2D Echo Pending Results/Labs: None Pending MD notification: None Latest Vital Signs: Temperature 98.4 , Pulse 90 , B/P 158 /80 , Respiratory Rate 20 , O2 SAT 96 , Room Air, O2 Flow Rate . Vital Sign Comment: EKG Rhythm: Atrial Fibrillation Rhythm change?: N MD Notified?: - MD Response: Latest Abreu Fall Score: 75 Fall Risk: High Risk Safety Measures: Call light Within Reach, Bed Alarm Zone 1, Side Rails Side Rails x3, Bed position Low and Locked. Fall Precautions: Yellow Socks YES Door Sign YES Patient Fall Education YES Received report from Rudolph Fox PRESSING MACHINE TENDER. Pt is AXO x 4, in bed, tachycardic. Monitor placed, bed alarm armed, bed low and locked, pt educated about fall risks. Small abrasion on bilateral feet r/t fall prior to admission. Blanching sacral redness. Otherwise skin is intact. WIll start plan of care and close monitoring.
[2019-12-12] MEDS: Metoprolol Tartrate 12.5mg TAB ORAL SCH (23:35)
[2019-12-12] MEDS: Depakote 500mg tab ORAL SCH (23:36)
[2019-12-12] MEDS: Enoxaparin 60mg Inj SUBQ SCH (23:36)
[2019-12-13] VITALS: BP 158/65
[2019-12-13] MEDS: Enoxaparin 60mg Inj SUBQ SCH
[2019-12-13] MEDS: LORazepam Inj 2mg/ml 1ml IV PRN ×2 (02:56→20:28)
[2019-12-13 04:00] VITALS: BP 130/55
--- NOTE | 2019-12-13 04:30 | Consultation ---
DATE OF CONSULTATION: 12/12/2019 CARDIOLOGY CONSULTATION CONSULTING PHYSICIAN: Jerome eMek M.D. REQUESTING PHYSICIAN: Benjamin Dumont M.D. REASON: Rapid atrial fibrillation and chest pain. HISTORY OF PRESENT ILLNESS: This is a 69-year-old female. She has a history of hypertension and COPD. She was hospitalized here about a year ago with chest pain and heart failure symptoms. At that time, an echocardiogram revealed normal ejection fraction. She did not have any atrial arrhythmias however. Today, she came into the emergency room because of weakness, shortness of breath, and wheezing. She also noted falling out of her wheelchair and has had pain all over her body including her chest. She did not have any head trauma. The patient recently was in a long-term facility and apparently left against medical advice. In the emergency room, her workup included an EKG revealing rapid atrial fibrillation and nonspecific ST-T changes. Her labs were notable for BUN 43, creatinine 2.3, bicarb 31, sodium 142, and potassium 4.1. Urinalysis revealed too numerous to count white cells. Her peripheral white count was 8.9 and hemoglobin 13.9, and a chest x-ray revealed mild pulmonary venous congestion with cardiomegaly. PAST MEDICAL HISTORY: Includes COPD, hypertension, history of congestive heart failure, degenerative disk disease, schizophrenia, osteoarthritis. SOCIAL HISTORY: Active smoker, 50 to 60 pack year history. No alcohol or substance abuse. MEDICATIONS: Reviewed and reconciled, however, compliance not clear. ALLERGIES: Include Haldol, vancomycin, erythromycin. REVIEW OF SYSTEMS: Denies fevers, chills, or known exposure to COVID-19. No known history of diabetes or thyroid disorder. Denies history of seizures. Denies change in bowel habits. Denies any known history of abnormal blood clotting. Her kidney function in 2019 is notable for creatinine being normal at 1. PHYSICAL EXAMINATION: GENERAL: Disheveled, mild respiratory distress. VITAL SIGNS: Blood pressure 136/91, pulse 107, respirations 20, afebrile, room air oxygen 96%. Obese. Some accessory muscle use. NECK: Cannot assess jugular venous pressure. LUNGS: With diminished breath sounds. Expiratory wheezes. CARDIAC: Reveals irregularly irregular rhythm. Normal S1, S2. CHEST WALL: Tender to palpation. ABDOMEN: Obese. EXTREMITIES: Reveal some bruising, but no significant edema. IMPRESSION: 1. Paroxysmal atrial fibrillation, possibly new in onset with rapid ventricular response. 2. Acute on chronic diastolic congestive heart failure. 3. COPD with acute bronchospasm. 4. Urinary tract infection. 5. Acute renal failure. 6. Musculoskeletal chest pain, low clinical suspicion for acute coronary insufficiency. PLAN: 1. Cardiac monitoring serial. 2. Troponin. 3. Rate control with beta-yves. 4. Observe for worsening bronchospasm. 5. Hold diuresis. 6. Hydrate and observe renal parameters. 7. Trend natriuretic peptide assay. Jerome Meek M.D. DR: RODRIGO JOB#: [id number] CC:
[2019-12-13] MEDS ORDERED: dilTIAZem HCl 60mg tab ORAL SCH (06:00)
[2019-12-13] MEDS: Ipratropium 0.02% Inh Soln 2.5ml UD HHN SCH ×4 (07:00→19:00)
--- NOTE | 2019-12-13 07:46 | NUR ---
NURSES NOTE Received report from DOMINIC Casey RN. Pt is AXO x 4, tachycardic and in bed. No pain noted . No SOB or acute distress noted. Pt has bed alarm armed, bed low and locked, pt educated about fall risks. Small abrasion on bilateral feet r/t fall prior to admission. Blanching sacral redness.
--- NOTE | 2019-12-13 07:47 | NUR ---
NURSE HAND-OFF REPORT: Important Events on Shift: Admitted to 2E Patient Status: stable Diet: ANNA Pending Orders: none Pending Results/Labs: refused Pending MD notification: none Latest Vital Signs: Temperature 98.3 , Pulse 110 , B/P 130 /55 , Respiratory Rate 20 , O2 SAT 96 , Room Air, O2 Flow Rate . Vital Sign Comment: EKG Rhythm: Atrial Fibrillation Rhythm change?: N MD Notified?: - MD Response: Latest Abreu Fall Score: 75 Fall Risk: High Risk Safety Measures: Call light Within Reach, Bed Alarm Zone 1, Side Rails Side Rails x3, Bed position Low and Locked. Fall Precautions: Yellow Socks yes Door Sign yes Patient Fall Education yes Report given to Tatyana Bowman RN .
[2019-12-13 08:00] VITALS: BP 136/80
[2019-12-13 09:22] LABS: BASOPHILS % (AUTO) 0.3 % (0.0-2.0); HEMATOCRIT 38.5 % (37.0-47.0); HEMOGLOBIN 12.4 G/DL (12.0-16.0); LYMPHOCYTES % (AUTO) 13.9 % (20.0-45.0); MEAN CORPUSCULAR VOLUME 86 FL (80-99); MONOCYTES % (AUTO) 9.8 % (1.0-10.0); PLATELET COUNT 189 K/UL (150-450); RED BLOOD COUNT 4.47 M/UL (4.20-5.40); RED CELL DISTRIBUTION WIDTH 16.1 % (11.6-14.8); WHITE BLOOD COUNT 6.8 K/UL (4.8-10.8)
[2019-12-13] MEDS: Metoprolol Tartrate 12.5mg TAB ORAL SCH (09:47)
[2019-12-13] MEDS: Depakote 500mg tab ORAL SCH ×2 (09:47→18:00)
[2019-12-13] MEDS: Aspirin Baby 81mg ORAL SCH (09:47)
[2019-12-13] MEDS: Docusate 100mg cap ORAL SCH ×2 (09:47→18:00)
[2019-12-13] MEDS: Bacitracin Oint 15gm Tube TOPIC SCH ×2 (09:49→18:00)
[2019-12-13 09:58] LABS: ALANINE AMINOTRANSFERASE 31 U/L (12-78); ALBUMIN 3.6 G/DL (3.4-5.0); ALBUMIN/GLOBULIN RATIO 0.8 (1.0-2.7); ALKALINE PHOSPHATASE 90 U/L (46-116); ANION GAP 9 mmol/L (5-15); ASPARTATE AMINO TRANSFERASE 29 U/L (15-37); BILIRUBIN,TOTAL 0.6 MG/DL (0.2-1.0); BLOOD UREA NITROGEN 44 mg/dL (7-18); CALCIUM 9.1 MG/DL (8.5-10.1); CARBON DIOXIDE 33 MMOL/L (21-32); CHLORIDE 100 MMOL/L (98-107); CHOLESTEROL 129 MG/DL (< 200); CREATININE 2.2 MG/DL (0.55-1.30); HDL CHOLESTEROL 51 MG/DL (40-60); SODIUM 141 MMOL/L (136-145); TRIGLYCERIDES 239 MG/DL (30-150)
--- NOTE | 2019-12-13 10:16 | Diagnostic Imaging Report ---
Indication: Acute renal failure Technique: Grayscale and duplex images of the kidneys, retroperitoneum, and bladder were obtained. Comparison: none Findings: Exam is limited. The left kidney was not evaluated, per patient preference. Right kidney measures 11.4 cm in length. It demonstrates some mild cortical thinning, normal echogenicity. No hydronephrosis. No focal abnormality. Normal inferior vena cava. Bladder is normal. Impression: Left kidney not evaluated, per patient preference Negative for right hydronephrosis.
[2019-12-13 10:19] LABS: INR 1.1 (0.9-1.1)
--- NOTE | 2019-12-13 10:31 | NUR ---
CERAMICS INSTRUCTOR NOTE SW attempted to meet w/ pt at 10:10am. Pt was sleeping. SW will attempt again.
--- NOTE | 2019-12-13 10:54 | Cardiology Progress Note ---
Subjective DATE OF SERVICE: Dec 13, 2019 Sleeping comfortably and awakes easily Monitor: AFIb 110 rates while asleep No SOB or hypoxia at rest Objective Last 24 Hour Vital Signs Date Time Temp Pulse Resp B/P (MAP) Pulse Ox O2 Delivery O2 Flow Rate FiO2 12/13/19 09:47 67 136/80 12/13/19 08:00 97.6 67 20 136/80 (98) 96 12/13/19 06:00 120 150/70 12/13/19 04:00 120 12/13/19 04:00 98.3 110 20 130/55 (80) 96 12/13/19 03:26 120 20 150/70 96 12/13/19 02:56 90 20 158/80 96 12/13/19 01:52 Room Air 12/13/19 00:05 98.3 12/13/19 00:00 97.9 97 19 158/65 (96) 95 12/13/19 00:00 90 12/12/19 23:35 97 158/80 12/12/19 22:45 98.4 107 20 136/91 96 Room Air 12/12/19 22:39 132 136/91 12/12/19 22:39 98.4 107 20 136/91 96 Room Air 12/12/19 22:17 98.7 112 23 138/95 96 Room Air 12/12/19 22:01 98.5 12/12/19 21:53 78 26 100 Room Air 21 76 26 97 12/12/19 21:31 142 144/108 12/12/19 21:16 98.5 132 20 141/93 97 Room Air 12/12/19 20:08 98.6 75 20 128/84 (99) 95 Room Air ROS: unchanged from 12/12/19 LUNGS: diminished breath sounds CARDIAC: normal S1 and S2, irregularly irregular ABDOMEN: other - obese EXTREMITIES: moderate edema - mostly non pitting Laboratory Tests Test 12/12/19 20:40 12/12/19 21:00 12/13/19 09:00 White Blood Count 8.9 K/UL (4.8-10.8) 6.8 K/UL (4.8-10.8) Red Blood Count 5.02 M/UL (4.20-5.40) 4.47 M/UL (4.20-5.40) Hemoglobin 13.9 G/DL (12.0-16.0) 12.4 G/DL (12.0-16.0) Hematocrit 43.2 % (37.0-47.0) 38.5 % (37.0-47.0) Mean Corpuscular Volume 86 FL (80-99) 86 FL (80-99) Mean Corpuscular Hemoglobin 27.7 PG (27.0-31.0) 27.8 PG (27.0-31.0) Mean Corpuscular Hemoglobin Concent 32.2 G/DL (32.0-36.0) 32.2 G/DL (32.0-36.0) Red Cell Distribution Width 15.8 % (11.6-14.8) H 16.1 % (11.6-14.8) H Platelet Count 226 K/UL (150-450) 189 K/UL (150-450) Mean Platelet Volume 7.8 FL (6.5-10.1) 6.7 FL (6.5-10.1) Neutrophils (%) (Auto) 79.8 % (45.0-75.0) H 76.0 % (45.0-75.0) H Lymphocytes (%) (Auto) 11.2 % (20.0-45.0) L 13.9 % (20.0-45.0) L Monocytes (%) (Auto) 8.3 % (1.0-10.0) 9.8 % (1.0-10.0) Eosinophils (%) (Auto) 0.1 % (0.0-3.0) 0.0 % (0.0-3.0) Basophils (%) (Auto) 0.6 % (0.0-2.0) 0.3 % (0.0-2.0) Prothrombin Time 11.8 SEC (9.30-11.50) H 11.9 SEC (9.30-11.50) H Prothromb Time International Ratio 1.1 (0.9-1.1) 1.1 (0.9-1.1) Activated Partial Thromboplast Time 20 SEC (23-33) L 25 SEC (23-33) Sodium Level 142 MMOL/L (136-145) 141 MMOL/L (136-145) Potassium Level 4.1 MMOL/L (3.5-5.1) 4.0 MMOL/L (3.5-5.1) Chloride Level 100 MMOL/L (98-107) 100 MMOL/L (98-107) Carbon Dioxide Level 31 MMOL/L (21-32) 33 MMOL/L (21-32) H Anion Gap 11 mmol/L (5-15) 9 mmol/L (5-15) Blood Urea Nitrogen 43 mg/dL (7-18) H 44 mg/dL (7-18) H Creatinine 2.3 MG/DL (0.55-1.30) H 2.2 MG/DL (0.55-1.30) H Estimat Glomerular Filtration Rate 21.1 mL/min (>60) 22.3 mL/min (>60) Glucose Level 134 MG/DL (74-106) H 140 MG/DL (74-106) H Calcium Level 10.5 MG/DL (8.5-10.1) H 9.1 MG/DL (8.5-10.1) Total Bilirubin 0.6 MG/DL (0.2-1.0) 0.6 MG/DL (0.2-1.0) Aspartate Amino Transf (AST/SGOT) 31 U/L (15-37) 29 U/L (15-37) Alanine Aminotransferase (ALT/SGPT) 29 U/L (12-78) 31 U/L (12-78) Alkaline Phosphatase 96 U/L (46-116) 90 U/L (46-116) Troponin I 0.002 ng/mL (0.000-0.056) 0.000 ng/mL (0.000-0.056) Pro-B-Type Natriuretic Peptide 07951 pg/mL (0-125) H 4671 pg/mL (0-125) H Total Protein 9.0 G/DL (6.4-8.2) H 8.1 G/DL (6.4-8.2) Albumin 4.1 G/DL (3.4-5.0) 3.6 G/DL (3.4-5.0) Globulin 4.9 g/dL 4.5 g/dL Albumin/Globulin Ratio 0.8 (1.0-2.7) L 0.8 (1.0-2.7) L Urine Color Yellow Urine Appearance Cloudy Urine pH 5 (4.5-8.0) Urine Specific [place] 1.025 (1.005-1.035) Urine Protein 3+ (NEGATIVE) H Urine Glucose (UA) Negative (NEGATIVE) Urine Ketones 1+ (NEGATIVE) H Urine Blood 4+ (NEGATIVE) H Urine Nitrite Negative (NEGATIVE) Urine Bilirubin 2+ (NEGATIVE) H Urine Ictotest Negative (NEGATIVE) Urine Urobilinogen 1 MG/DL (0.0-1.0) H Urine Leukocyte Esterase 3+ (NEGATIVE) H Urine RBC 10-15 /HPF (0 - 2) H Urine WBC Tntc /HPF (0 - 2) H Urine Squamous Epithelial Cells Moderate /LPF (NONE/OCC) H Urine Bacteria Many /HPF (NONE) H Hemoglobin A1c 7.1 % (4.3-6.0) H Triglycerides Level 239 MG/DL (30-150) H Cholesterol Level 129 MG/DL (< 200) LDL Cholesterol 45 mg/dL (<100) HDL Cholesterol 51 MG/DL (40-60) Cholesterol/HDL Ratio 2.5 (3.3-4.4) L Thyroid Stimulating Hormone (TSH) 0.883 uiU/mL (0.358-3.740) Valproic Acid (Depakene) Level < 3 MCG/ML (50-100) L Microbiology Date/Time Source Procedure Growth Status 12/12/19 20:40 Nasopharynx SARS-CoV-2 RdRp Gene Assay - Final Complete 12/12/19 21:00 Rectum Received Assessment/Plan Assessment/Plan AFIB with RVR CHF, ac/chr diast - compensated BLE edema UTI with sepsis obesity COPD with bronchospasm Acute renal failure Advance rate control meds Eliquis at renal dosing Venous duplex Cautious hydration - observe renal fxn F/U TSH Jerome Meek MD Dec 13, 2019 10:54
[2019-12-13] MEDS ORDERED: dilTIAZem HCl 25mg/5ml Inj IVP SCH (11:00)
[2019-12-13 12:00] VITALS: BP 146/77
[2019-12-13] MEDS: dilTIAZem HCl 90mg tab ORAL SCH ×2 (14:00→21:36)
[2019-12-13 16:00] VITALS: BP 134/72
[2019-12-13] MEDS: Eliquis 5mg tablet ORAL SCH (18:00)
[2019-12-13] MEDS ORDERED: Eliquis 2.5mg tablet ORAL SCH (18:00)
--- NOTE | 2019-12-13 18:28 | History and Physical Report ---
DATE OF ADMISSION: 12/12/2019 CHIEF COMPLAINT AND REASON FOR HOSPITALIZATION: The patient is a 69-year-old lady admitted with a ground level fall, atrial fibrillation. HISTORY OF PRESENT ILLNESS: The patient has a history of schizophrenia, hypertension, COPD, and prior hospitalization here about a year ago with chest pain and heart failure with a normal ejection fraction. She presented after a fall from the wheelchair. She may be homeless. She is a poor historian. She has morbid obesity. She had rapid atrial fibrillation in the emergency room. An EKG with nonspecific ST-T wave changes and was started on Cardizem and admitted to a telemetry unit. HABITS: She has been a heavy smoker about 50 to 60 pack year history. Notes that she only smokes once a week. Denies alcohol or drugs. PAST SURGICAL HISTORY: Hysterectomy. SOCIAL HISTORY: I believe she is homeless. She is a poor historian. ALLERGIES: She states in the past Haldol, vancomycin, erythromycin not clear if these are true allergies. HOME MEDICATIONS: She cannot give an adequate list but these are listed in the computer, not sure of the accuracy but they include Tylenol, bacitracin, Lumigan eye drops, Lotrimin, Cardizem, Depakote, DSS, Premarin, eye drops, Robaxin, potassium, Protonix. SYSTEM REVIEW: HEAD, EYES, EARS, NOSE, AND THROAT: She is taking eye drops for glaucoma. She states her vision and hearing is good. ENDOCRINE: History of morbid obesity and possible hypothyroidism. Denies diabetes. PULMONARY: She states she has COPD and easily short of breath. CARDIAC: See above. GASTROINTESTINAL: No nausea, vomiting, hematochezia, melena. GENITOURINARY: No dysuria or hematuria. NEUROLOGIC: No history of focal strokes. PHYSICAL EXAMINATION: GENERAL: The patient is morbidly obese. BMI 48.4. The patient is alert, but tends to close her eyes during the interview. VITAL SIGNS: Heart rate 67 to 124, temperature 97.6, blood pressure 136/80. HEAD, EYES, EARS, NOSE, AND THROAT: Sclerae are nonicteric. Ocular motions intact in all directions. Oral mucosa moist. NECK: No adenopathy or thyroid enlargement. LUNGS: Clear. Distant breath sounds. HEART: Rhythm is atrial fibrillation. I hear no murmur. ABDOMEN: Obese and soft without organomegaly or masses. EXTREMITIES: Trace edema. There is some ecchymoses in the knees bilaterally and some bruises on the hands. No cellulitis. NEUROLOGIC: She is alert and responsive. Ocular motions intact in all directions. Smile is symmetric. Tongue is midline. She moves all extremities. She has generalized weakness. PERTINENT LABORATORY DATA:: White count 6.8, hemoglobin is 12.4. BUN 43, creatinine 2.3, sodium 142, potassium 4.1, chloride 100, CO2 31, glucose 134 and 140. BNP 78158 and then 4671. Cholesterol 129. TSH 0.883. Troponin 0.002 and 0.00. IMPRESSION: 1. Atrial fibrillation, possibly chronic. 2. Ground level fall. 3. History of chest pain, documented, likely atypical. 4. Chronic congestive heart failure. 5. COPD. 6. Morbid obesity. 7. Gait disorder. 8. Falls. 9. Schizophrenia . 10. Homeless. PLAN: Dr. Meek has seen the patient and adjusting medicines for rate control, anticoagulation, and social service evaluation. Her condition is complex and will need placement. Benjamin Dumont M.D. DR: Shadi JOB#: [id number] CC:
--- NOTE | 2019-12-13 19:32 | NUR ---
NURSE NOTES: Received report from NOEL Joe. Patient is asleep, alert and oriented x 2-3. predictive maintenance specialist is in place, shows Atrial fibrillation with no chest pain reported. On room air with no desaturation nor shortness of breath, sating 95%. IV site is on left upper arm g-22 saline lock that is patent and intact. Patient is fall precaution. On regular diet, no added salt, instructed and amenable. Safety measures are in place, bed in lowest and locked position, bed alarm is on, side rails up x 2. Call light button and bedside table within reach, instructed to call for any assistance needed. Will continue plan of care.
--- NOTE | 2019-12-13 19:46 | NUR ---
NURSE HAND-OFF REPORT: Important Events on Shift: 2D echo, venous doppler, renal ultrasound all done. Patient Status: Stable and FC Diet: NSA Pending Orders: Pending Results/Labs: Pending MD notification: Latest Vital Signs: Temperature 98.1 , Pulse 103 , B/P 134 /72 , Respiratory Rate 20 , O2 SAT 96 , Room Air, O2 Flow Rate . Vital Sign Comment: EKG Rhythm: AFIB/AFlutter Rhythm change?: N MD Notified?: Y -MD Gaviota UNDERWOOD Response: Latest Abreu Fall Score: 75 Fall Risk: High Risk Safety Measures: Call light Within Reach, Bed Alarm Zone 2, Side Rails Side Rails x2, Bed position Low and Locked. Fall Precautions: Yellow Socks Yellow Gown Patient Fall Education Report given to
[2019-12-13 20:00] VITALS: BP 129/81
[2019-12-13] MEDS ORDERED: Metoprolol Tartrate 50mg tab ORAL SCH (21:00)
[2019-12-14] VITALS: BP 149/84
[2019-12-14 04:00] VITALS: BP 157/89
[2019-12-14] MEDS: dilTIAZem HCl 90mg tab ORAL SCH ×3 (05:38→17:32)
[2019-12-14 06:04] LABS: BASOPHILS % (AUTO) 0.8 % (0.0-2.0); EOSINOPHILS % (AUTO) 0.2 % (0.0-3.0); HEMATOCRIT 37.7 % (37.0-47.0); LYMPHOCYTES % (AUTO) 17.6 % (20.0-45.0); MEAN CORPUSCULAR VOLUME 85 FL (80-99); MONOCYTES % (AUTO) 10.8 % (1.0-10.0); NEUTROPHILS % (AUTO) 70.6 % (45.0-75.0); PLATELET COUNT 177 K/UL (150-450); RED BLOOD COUNT 4.44 M/UL (4.20-5.40); RED CELL DISTRIBUTION WIDTH 15.1 % (11.6-14.8); WHITE BLOOD COUNT 4.4 K/UL (4.8-10.8)
[2019-12-14 06:16] LABS: ANION GAP 8 mmol/L (5-15); BLOOD UREA NITROGEN 30 mg/dL (7-18); CALCIUM 8.8 MG/DL (8.5-10.1); CARBON DIOXIDE 31 MMOL/L (21-32); CHLORIDE 103 MMOL/L (98-107); CREATININE 1.7 MG/DL (0.55-1.30); POTASSIUM 3.9 MMOL/L (3.5-5.1); SODIUM 142 MMOL/L (136-145)
[2019-12-14 06:39] LABS: PHOSPHORUS 3.7 MG/DL (2.5-4.9)
--- NOTE | 2019-12-14 06:45 | NUR ---
DUTY ENGINEER NOTE LATE ENTRY D/T MEDITECH ISSUE SW met w/ pt and assessed pt on 12/13/2019. Pt appears to be A&O 3x. Pt reports she has been homeless after leaving [facility] with AMA a week ago. Pt receives GR and food stamp. PT did not disclose this SW whether her income is currently available or not. PT uses wheelchair and reports she is independent w/ IADLs. PT is single,has no children and no family member. Pt denies substance abuse and she also denies having mental health issue. Pt denies SI/HI. Pt is requesting if she could return to [facility] or [facility]. This SW explained pt that the SNF admission will require skilled needs. SW will relay information to assigned CM.
[2019-12-14] MEDS: Ipratropium 0.02% Inh Soln 2.5ml UD HHN SCH ×3 (06:57→19:32)
--- NOTE | 2019-12-14 07:12 | NUR ---
NURSE HAND-OFF REPORT: Important Events on Shift: Patient is trying to get out on bed several times. Patient has unsteagable sacral pressure injury, DTI on bilateral heels and dry wounds on both metatarsal. Place wound consult. Patient Status: Patient is asleep at this time, but confused and uncooperative. High risk for fall. RN made aware. Diet: No added salt Pending Orders: none Pending Results/Labs: none Pending MD notification: none Latest Vital Signs: Temperature 98.1 , Pulse 110 , B/P 158 /91 , Respiratory Rate 22 , O2 SAT 95 , Room Air, O2 Flow Rate . Vital Sign Comment: Still with high heart rate EKG Rhythm: Atrial Fibrillation Rhythm change?: N MD Notified?: Elizabeth Meek MD Response: Latest Abreu Fall Score: 85 Fall Risk: High Risk Safety Measures: Call light Within Reach, Bed Alarm Zone 2, Side Rails Side Rails x2, Bed position Low and Locked. Fall Precautions: Yellow Socks Yellow Gown Door Sign Patient Fall Education Report given to NOEL Joe.
--- NOTE | 2019-12-14 07:50 | NUR ---
NURSE NOTES: Received report from NOEL Rodarte. Pt is A/O x 3-4, tachycardic and in bed. No pain noted. No SOB or acute distress noted. Pt has bed alarm armed, bed low and locked, pt educated about fall risks the risk out getting out of bed without assistance. Pt is on NSA diet but continues to ask for coffee and saltine crackers. Pt has blisters on bilateral buttocks and scattered scraps on bilateral feet.
[2019-12-14 08:00] VITALS: BP 138/82
[2019-12-14] MEDS: Docusate 100mg cap ORAL SCH ×2 (09:33→17:31)
[2019-12-14] MEDS: Depakote 500mg tab ORAL SCH ×2 (09:33→17:31)
[2019-12-14] MEDS: Eliquis 5mg tablet ORAL SCH ×2 (09:34→17:31)
[2019-12-14] MEDS: Aspirin Baby 81mg ORAL SCH (09:34)
[2019-12-14] MEDS: Bacitracin Oint 15gm Tube TOPIC SCH ×2 (09:34→17:32)
--- NOTE | 2019-12-14 10:20 | NUR ---
PT EVALUATION NOTE Patient seen for initial evaluation and treatment initiated. Patient presents with generalized weakness, decreased postural stability and decreased safety awareness which impairs patient's ability to perform mobility tasks safely and increases fall risk. Patient is very impulsive and does not always follow commands. Patient requires CGA/min assist for transfers to/from wheelchair. Patient was unable to cooperate with ambulation at this time. Patient will benefit from skilled inpatient PT intervention to increase strength and balance for improved level of functional mobility, improved safety and to decrease fall risk. Recommend discharge to SNF once medically cleared by MD. DME needs to be determined, patient has wheelchair. Addendum: 12/14/19 at 1057 by BEE MCBRIDE PT Amended: Links added.
[2019-12-14] MEDS ORDERED: Digoxin 0.5mg/2ml Inj IVP SCH ×2 (11:13→13:00)
[2019-12-14 12:00] VITALS: BP 144/78
--- NOTE | 2019-12-14 12:07 | Consultation ---
Luz Bowen CERTIFIED NURSE MIDWIFE 12/14/19 1207: History of Present Illness General Chief Complaint: Pain Referring physician: Dr Dumont Reason for Consultation: COPD exacerbation Present Illness HPI 69 years old female with PMH of HTN, COPD, CHF, atrial fibrillation, tobacco dependence, morbid obesity, w/chair bound, presented with generalized pain all over her body and wheezing. She stated that she slipped out of her wheelchair twice on the day of presentation to ED and was having generalized body pain. She denied head, neck or back pain. No chest pain , but reported mild shortness of breath. Patient was recently admitted to shelter facility , but signed AGAINST MEDICAL ADVICE Upon evaluation pulse oximetry was 95% on room air . Patient was afebrile. Laboratory work-up revealed no leukocytosis, stable hemoglobin ,hematocrit and platelet count. Stable electrolytes. BUN 43, creatinine 2.5. Urinalysis with cloudy urine, +3 protein ,+3 leukocyte esterase ,pyuria and many bacteria. Troponin negative, EKG revealed atrial fibrillation with rapid ventricular response , heart rate 111. Chest x-ray revealed cardiomegaly with mild pulmonary vascular congestion. No consolidation. Rapid COVID-19 was negative. In ER t patient received Lovenox and Atrovent, loading dose of Solu-Medrol , Tylenol , Cardizem IV , Lasix ,started on empiric antibiotic and admitted for further management. Pulmonary consult was requested to assist in management of this patient. Allergies: Coded Allergies: ERYTHROMYCIN BASE (Verified Allergy, Severe, 12/12/19) HALOPERIDOL (Verified Allergy, Unknown, 12/12/19) VANCOMYCIN (Unverified Adverse Reaction, Intermediate, Shortness of Breath , 12/12/19) Medication History Scheduled Bacitracin (Bacitracin), 1 APPLIC TOPIC BID Bimatoprost (Lumigan), 1 DROP BOTH EYES HS, (Reported) Clotrimazole* (Lotrimin*), 1 APPLIC TOPIC TWICE A DAY Diltiazem Hcl* (Cardizem*), 60 MG ORAL EVERY 8 HOURS, (Reported) Divalproex Sodium* (Depakote*), 500 MG PO BID, (Reported) Docusate Sodium* (Docusate Sodium*), 200 MG ORAL TWICE A DAY Estrogens Conjugated (Premarin), 0.3 MG ORAL DAILY, (Reported) Latanoprost/Pf (Latanoprost 0.005% Eye Drop), 1 DROP OP DAILY, (Reported) Methocarbamol* (Robaxin-750*), 750 MG PO TID No Known Medications* (NKM - No Known Medications*), 0 ., (Reported) Pantoprazole* (Protonix*), 40 MG ORAL DAILY, (Reported) Scheduled PRN Acetaminophen (Tylenol), 650 MG ORAL Q6H PRN for Prn Pain/Headache/Temp > 101 Acetaminophen* (Tylenol Extra Strength*), 500 MG ORAL Q8H PRN for Prn Headache/ Temp > 101 Miscellaneous Medications Potassium Chloride (Potassium Chloride), 20 MEQ PO, (Reported) Unable to Obtain Medications (Unable To Obtain Meds), (Reported) Patient History Healthcare decision maker Resuscitation status Advanced Directive on File Review of Systems ROS Narrative unable to obtain; patient is extremely poor in providing history, not willing to be engaged in conversation Physical Exam General Appearance: other - morbidly obese somewhat anxious female in NAD Lines, tubes and drains: peripheral HEENT: normocephalic, atraumatic, anicteric, mucous membranes moist Neck: non-tender Respiratory/Chest: chest wall non-tender, no accessory muscle use, decreased breath sounds Cardiovascular/Chest: irregularly irregular - A fib with HR 105-110 Abdomen: normal bowel sounds, non tender - obese, soft Extremities: no calf tenderness, moderate edema - +2 BLE Skin Exam: warm/dry, other - multiple tattoos Neurologic: abnormal gait - w/chair bound , alert, responsive, other - anxious Musculoskeletal: normal muscle bulk Last 24 Hour Vital Signs Date Time Temp Pulse Resp B/P (MAP) Pulse Ox O2 Delivery O2 Flow Rate FiO2 12/14/19 11:35 108 12/14/19 11:35 108 138/82 12/14/19 09:33 108 138/82 12/14/19 09:00 Room Air 12/14/19 08:00 126 12/14/19 08:00 96.6 108 20 138/82 (100) 95 12/14/19 07:07 105 20 97 Room Air 21 12/14/19 07:07 105 20 97 Room Air 21 101 20 95 12/14/19 05:38 110 158/91 12/14/19 04:00 98.1 110 22 157/89 (111) 95 12/14/19 04:00 113 12/14/19 00:00 114 12/14/19 00:00 97.5 66 21 149/84 (105) 95 12/13/19 21:36 115 121/78 12/13/19 21:00 Room Air 12/13/19 20:58 110 24 119/81 98 12/13/19 20:28 125 23 129/81 98 12/13/19 20:26 121 129/81 12/13/19 20:00 121 12/13/19 20:00 99.3 75 21 129/81 (97) 98 12/13/19 19:25 103 12/13/19 16:00 98.1 103 20 134/72 (92) 96 12/13/19 14:00 103 134/72 12/13/19 12:00 97.2 21 146/77 (100) 96 Intake and Output 12/13/19 12/14/19 19:00 07:00 Intake Total 480 ml Balance 480 ml Intake Oral 480 ml # Voids 2 3 # Bowel Movements 1 Laboratory Tests Test 12/14/19 05:35 White Blood Count 4.4 K/UL (4.8-10.8) L Red Blood Count 4.44 M/UL (4.20-5.40) Hemoglobin 12.0 G/DL (12.0-16.0) Hematocrit 37.7 % (37.0-47.0) Mean Corpuscular Volume 85 FL (80-99) Mean Corpuscular Hemoglobin 27.1 PG (27.0-31.0) Mean Corpuscular Hemoglobin Concent 31.9 G/DL (32.0-36.0) L Red Cell Distribution Width 15.1 % (11.6-14.8) H Platelet Count 177 K/UL (150-450) Mean Platelet Volume 6.5 FL (6.5-10.1) Neutrophils (%) (Auto) 70.6 % (45.0-75.0) Lymphocytes (%) (Auto) 17.6 % (20.0-45.0) L Monocytes (%) (Auto) 10.8 % (1.0-10.0) H Eosinophils (%) (Auto) 0.2 % (0.0-3.0) Basophils (%) (Auto) 0.8 % (0.0-2.0) Sodium Level 142 MMOL/L (136-145) Potassium Level 3.9 MMOL/L (3.5-5.1) Chloride Level 103 MMOL/L (98-107) Carbon Dioxide Level 31 MMOL/L (21-32) Anion Gap 8 mmol/L (5-15) Blood Urea Nitrogen 30 mg/dL (7-18) H Creatinine 1.7 MG/DL (0.55-1.30) H Estimat Glomerular Filtration Rate 30.0 mL/min (>60) Glucose Level 128 MG/DL (74-106) H Calcium Level 8.8 MG/DL (8.5-10.1) Phosphorus Level 3.7 MG/DL (2.5-4.9) Magnesium Level 2.1 MG/DL (1.8-2.4) Height (Feet): 5 Height (Inches): 6.00 Weight (Pounds): 298 Medications Current Medications Medications (Trade) Dose Ordered Sig/Shiraz Route PRN Reason Start Time Stop Time Status Last Admin Dose Admin Acetaminophen (Tylenol) 650 mg Q4H PRN ORAL Mild Pain (Pain Scale 1-3) 12/12/19 22:15 01/11/20 22:14 12/13/19 20:27 Acetaminophen (Tylenol) 650 mg Q4H PRN ORAL Temp >100.5 12/12/19 22:15 01/11/20 22:14 Apixaban (Eliquis) 5 mg BID ORAL 12/13/19 18:00 03/12/20 17:59 12/14/19 09:34 Aspirin (ASA) 81 mg DAILY ORAL 12/13/19 09:00 01/27/20 08:59 12/14/19 09:34 Bacitracin (Bacitracin 15gm tube) 1 applic BID TOPIC 12/13/19 09:00 03/12/20 08:59 12/14/19 09:34 Clotrimazole (Lotrimin) 1 applic TWICE A DAY TOPIC 12/13/19 09:00 03/12/20 08:59 12/14/19 09:34 Dextrose (Dextrose 50%) 25 ml Q30M PRN IV Hypoglycemia 12/12/19 22:15 03/11/20 22:14 Dextrose (Dextrose 50%) 50 ml Q30M PRN IV Hypoglycemia 12/12/19 22:15 03/11/20 22:14 Digoxin (Lanoxin) 0.125 mg DAILY ORAL 12/15/19 09:00 03/14/20 08:59 Digoxin (Lanoxin) 0.25 mg ONCE IVP 12/14/19 11:13 12/14/19 12:13 12/14/19 11:35 Digoxin (Lanoxin) 0.25 mg ONCE IVP 12/14/19 13:00 12/14/19 14:00 Diltiazem HCl (Cardizem Tab) 90 mg Q6HR ORAL 12/14/19 12:00 01/13/20 11:59 Diphenhydramine HCl (Benadryl) 25 mg Q6H PRN ORAL Itching/Pruritis 12/12/19 22:15 01/11/20 22:14 Divalproex Sodium (Depakote) 500 mg BID ORAL 12/12/19 23:00 01/11/20 22:59 12/14/19 09:33 Docusate Sodium (Colace) 200 mg TWICE A DAY ORAL 12/13/19 09:00 01/12/20 08:59 12/14/19 09:33 Famotidine (Pepcid) 10 mg DAILY ORAL 12/13/19 09:00 03/12/20 08:59 12/14/19 09:32 Ipratropium Loyal (Atrovent) 500 mcg TIDRT HHN 12/12/19 22:15 12/17/19 22:14 12/14/19 06:57 Lorazepam (Ativan 2mg/ml 1ml) 0.5 mg Q4H PRN IV For Anxiety 12/12/19 22:15 12/19/19 22:14 12/13/19 20:28 Magnesium Hydroxide (Mom) 30 ml HSPRN PRN ORAL Constipation 12/12/19 22:15 01/11/20 22:14 Metoprolol Tartrate (Lopressor) 25 mg Q12HR ORAL 12/13/19 21:00 03/12/20 20:59 12/14/19 09:33 Nitroglycerin (Ntg) 0.4 mg Q5M PRN SL Prn Chest Pain 12/12/19 22:15 01/11/20 22:14 Ondansetron HCl (Zofran) 4 mg Q6H PRN IVP Nausea & Vomiting 12/12/19 22:15 01/11/20 22:14 12/13/19 02:56 Potassium Chloride (K-Dur) 20 meq DAILY ORAL 12/13/19 09:00 03/12/20 08:59 12/14/19 09:33 Risperidone (RisperDAL) 3 mg QHS ORAL 12/13/19 21:00 01/27/20 20:59 12/13/19 21:36 Assessment/Plan Assessment/Plan: ASSESSMENT COPD Bronchospasm Atrial fibrillation with rapid ventricular response Congestive heart failure Acute renal failure UTI Status post ground fall Tobacco dependency Morbid obesity Homeless PLAN OF CARE tele hold steroids for now, given acute renal failure, no wheezing, s/p loading dose of steroids in ED closely monitor resp status O2 titrate to keep sat above 92% pulm toilet with Atrovent ATC and Xopenex PRN Venous Duplex BLE start empiric abx/ceftriaxone fup with CXR today fup with UCX declined Nicotine patch on a/c rate control- per cardio recs: on BB, Cardizem and Digoxin monitor volumes ECHO with pEF no evidence of WMA GI prophylaxis renal US noted monitor renal parameters, lytes avoid nephrotoxics as possible correct lytes as needed creat trending down discussion on weight loss if receptive - not at this time; anxious and wants to go home pain management anxiolytic prn SW consult for placement case discussed and evaluated by supervising physician ivy mccarty for a consult! Igor Carpio MD 12/14/19 1301: History of Present Illness General Chief Complaint: Pain Present Illness Allergies: Coded Allergies: ERYTHROMYCIN BASE (Verified Allergy, Severe, 12/12/19) HALOPERIDOL (Verified Allergy, Unknown, 12/12/19) VANCOMYCIN (Unverified Adverse Reaction, Intermediate, Shortness of Breath , 12/12/19) Medication History Scheduled Bacitracin (Bacitracin), 1 APPLIC TOPIC BID Bimatoprost (Lumigan), 1 DROP BOTH EYES HS, (Reported) Clotrimazole* (Lotrimin*), 1 APPLIC TOPIC TWICE A DAY Diltiazem Hcl* (Cardizem*), 60 MG ORAL EVERY 8 HOURS, (Reported) Divalproex Sodium* (Depakote*), 500 MG PO BID, (Reported) Docusate Sodium* (Docusate Sodium*), 200 MG ORAL TWICE A DAY Estrogens Conjugated (Premarin), 0.3 MG ORAL DAILY, (Reported) Latanoprost/Pf (Latanoprost 0.005% Eye Drop), 1 DROP OP DAILY, (Reported) Methocarbamol* (Robaxin-750*), 750 MG PO TID No Known Medications* (NKM - No Known Medications*), 0 ., (Reported) Pantoprazole* (Protonix*), 40 MG ORAL DAILY, (Reported) Scheduled PRN Acetaminophen (Tylenol), 650 MG ORAL Q6H PRN for Prn Pain/Headache/Temp > 101 Acetaminophen* (Tylenol Extra Strength*), 500 MG ORAL Q8H PRN for Prn Headache/ Temp > 101 Miscellaneous Medications Potassium Chloride (Potassium Chloride), 20 MEQ PO, (Reported) Unable to Obtain Medications (Unable To Obtain Meds), (Reported) Assessment/Plan Assessment/Plan: Patient seen and examined with CERTIFIED NURSE MIDWIFE. Agree with above A&P as it reflects our joint deliberations. Luz Bowen NP Dec 14, 2019 12:07 Igor Carpio MD Dec 14, 2019 13:01
[2019-12-14] MEDS ORDERED: Levalbuterol Inh UD 1.25mg/0.5ml HHN PRN (12:30)
--- NOTE | 2019-12-14 13:02 | NUR ---
NURSES NOTE: Wound care nurse came and looked at sacral area which confirmed to be Sacral DTI's along with scabbing on both bilateral feet. Treatment completed.
[2019-12-14] MEDS ORDERED: cefTRIAXone 1 GM in D5W 55 ML IVPB SCH (14:00)
--- NOTE | 2019-12-14 14:10 | General Progress Note ---
Assessment/Plan Problem List: (1) Schizophrenia ICD Codes: F20.9 - Schizophrenia, unspecified SNOMED: 42638450 (2) GERD (gastroesophageal reflux disease) ICD Codes: K21.9 - Gastro-esophageal reflux disease without esophagitis SNOMED: 786177906 (3) Lymphadema (4) Smoker ICD Codes: F17.200 - Nicotine dependence, unspecified, uncomplicated SNOMED: 01580167 (5) Atrial fibrillation with rapid ventricular response ICD Codes: I48.91 - Unspecified atrial fibrillation SNOMED: 440296152670487 (6) CKD (chronic kidney disease) stage 3, GFR 30-59 ml/min ICD Codes: N18.3 - Chronic kidney disease, stage 3 (moderate) SNOMED: 035750837 (7) NATALIE (acute kidney injury) ICD Codes: N17.9 - Acute kidney failure, unspecified SNOMED: 5509373, 86556469 (8) COPD (chronic obstructive pulmonary disease) ICD Codes: J44.9 - Chronic obstructive pulmonary disease, unspecified SNOMED: 32934082 Assessment/Plan: tele, increase dose diltiazem, pulm care, PT eval, psych to see, placement Subjective ROS Limited/Unobtainable: Yes Allergies: Coded Allergies: ERYTHROMYCIN BASE (Verified Allergy, Severe, 12/12/19) HALOPERIDOL (Verified Allergy, Unknown, 12/12/19) VANCOMYCIN (Unverified Adverse Reaction, Intermediate, Shortness of Breath , 12/12/19) Objective Last 24 Hour Vital Signs Date Time Temp Pulse Resp B/P (MAP) Pulse Ox O2 Delivery O2 Flow Rate FiO2 12/14/19 13:48 102 12/14/19 13:23 100 20 99 Room Air 21 98 20 95 12/14/19 12:00 97.5 100 18 144/78 (100) 94 12/14/19 12:00 102 12/14/19 11:35 108 12/14/19 11:35 108 138/82 12/14/19 09:33 108 138/82 12/14/19 09:00 Room Air 12/14/19 08:00 126 12/14/19 08:00 96.6 108 20 138/82 (100) 95 12/14/19 07:07 105 20 97 Room Air 21 12/14/19 07:07 105 20 97 Room Air 21 101 20 95 12/14/19 05:38 110 158/91 12/14/19 04:00 98.1 110 22 157/89 (111) 95 12/14/19 04:00 113 12/14/19 00:00 114 12/14/19 00:00 97.5 66 21 149/84 (105) 95 12/13/19 21:36 115 121/78 12/13/19 21:00 Room Air 12/13/19 20:58 110 24 119/81 98 12/13/19 20:28 125 23 129/81 98 12/13/19 20:26 121 129/81 12/13/19 20:00 121 12/13/19 20:00 99.3 75 21 129/81 (97) 98 12/13/19 19:25 103 12/13/19 16:00 98.1 103 20 134/72 (92) 96 Intake and Output 12/13/19 12/14/19 19:00 07:00 Intake Total 480 ml Balance 480 ml Intake Oral 480 ml # Voids 2 3 # Bowel Movements 1 Laboratory Tests 12/14/19 05:35: White Blood Count 4.4L, Red Blood Count 4.44, Hemoglobin 12.0, Hematocrit 37.7, Mean Corpuscular Volume 85, Mean Corpuscular Hemoglobin 27.1, Mean Corpuscular Hemoglobin Concent 31.9L, Red Cell Distribution Width 15.1H, Platelet Count 177 , Mean Platelet Volume 6.5, Neutrophils (%) (Auto) 70.6, Lymphocytes (%) (Auto) 17.6L, Monocytes (%) (Auto) 10.8H, Eosinophils (%) (Auto) 0.2, Basophils (%) ( Auto) 0.8, Sodium Level 142, Potassium Level 3.9, Chloride Level 103, Carbon Dioxide Level 31, Anion Gap 8, Blood Urea Nitrogen 30H, Creatinine 1.7H, Estimat Glomerular Filtration Rate 30.0, Glucose Level 128H, Calcium Level 8.8, Phosphorus Level 3.7, Magnesium Level 2.1 Height (Feet): 5 Height (Inches): 6.00 Weight (Pounds): 298 General Appearance: morbidly obese EENT: normal ENT inspection Neck: normal alignment Cardiovascular: regularly irregular Respiratory/Chest: lungs clear, decreased breath sounds Abdomen: non tender, soft Edema: no edema noted Arm (L), no edema noted Arm (R), no edema noted Leg (L), no edema noted Leg (R), no edema noted Pedal (L), no edema noted Pedal (R), no edema noted 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
--- NOTE | 2019-12-14 14:23 | NUR ---
NURSE NOTES:WOUND CARE NOTES:Morbidly obese pt whom presented on admission with Pressure injuries, Edemae bilat lower extremities eschar to dorsal aspects of metatarsals. Pt is very demanding of staff and can be resistive to repositioning. DTPI noted to L Sacrum(L)5.5cm x (W)2.5cm. Base of Pressure Injury is Maroon and indurated with surrounding non-blanchable erythema DTPI R Sacrum(L)5.5cm x (W)2.3cm. Base of Pressure Injury is maroon with purpuric center that is fluctuant. Pt complained of tenderness when minimally palpated. Bilat lower extremities are edematous . Dry eschar noted to nail matrix and tip of L 1st metatarsal, Dorsal L 2nd metatarsal, R 2nd and R 4th metatarsals. Both heels are boggy with non-Blanchable erythema. Tx.Plan: Apply Moisture Barrier Paste to Sacrum R and L gluteal cheeks. Cover with Optifoam drsgs. Change every 3 days and prn. Apply Betadine to dry eschar metatarsals both feet Daily. Apply Cavilon Skin Barrier to both heels. Cover each heel with Optifoam drsgs. Change every 7days and prn. Reposition at least every 2hours or as tolerated. Off-load heels with pillow.
--- NOTE | 2019-12-14 14:59 | NUR ---
INSURANCE PAYAM PH: NEL FARAH [phone] CLINICALS: [phone] [facility] PENDING Addendum: 12/14/19 at 1502 by Hannah Hill [facility] [id number]
[2019-12-14 16:00] VITALS: BP 137/95
--- NOTE | 2019-12-14 16:45 | Diagnostic Imaging Report ---
Indication: Shortness of breath Technique: One view of the chest Comparison: 05/30/2018 Findings: The heart is enlarged. There is equivocal mild interstitial congestion. No definite focal airspace consolidation. The left lateral diaphragm is obscured, probably soft tissue but small effusion also possible. Impression: Cardiomegaly Equivocal mild interstitial congestion Cannot rule out small left pleural effusion
--- NOTE | 2019-12-14 16:45 | Diagnostic Imaging Report ---
Indication: Shortness of breath. Lower extremity edema Technique: Grayscale and duplex images of the bilateral lower extremity veins Comparison: 08/02/2016 Findings: Exam somewhat limited due to body habitus. Bilaterally, grayscale and duplex images demonstrate no evidence of intraluminal thrombus. Normal phasic Doppler waveforms, demonstrating normal augmentation response and no evidence of valvular insufficiency. Patent greater saphenous veins and calf veins. No significant interim change . The soft tissues are considerably edematous. Impression: Negative for evidence of lower extremity deep venous thrombosis bilaterally
--- NOTE | 2019-12-14 16:46 | Diagnostic Imaging Report ---
Indication: Shortness of breath Technique: One view of the chest Comparison: 12/12/2019 Findings: Body habitus limits evaluation. The heart is enlarged. The left hemidiaphragm is obscured, probably by overlying soft tissue. There is mild generalized interstitial prominence, similar to the previous study. Impression: Obscured left hemidiaphragm. Probably by overlying soft tissue but pleural and/or parenchymal disease of the left lung base also possible Equivocal mild interstitial congestion, unchanged if real. Cardiomegaly
--- NOTE | 2019-12-14 16:50 | NUR ---
DISCHARGE PLANNING: NOTE CALL PLACED TO SOFI [phone] UPDATING HIM ABOUT THIS PT. [facility] DELORIS ESCOBEDO EFAX: [phone]/ T [facility] F: [phone]/T: NON CONTRACTED FACILITIES CLINICALS FAXED TO [facility] [address] [facility]/W [place] SHE IS WILLING TO ACCEPT THIS PT BACK [facility] ATTN: NU RAMOS TO ASSIST IN REFERRING PT TO [facility] Addendum: 12/14/19 at 1907 by Annmarie Curry CM PT REFERRED TO GAURAV Tejada/ GALI BAIRD FOR PERMANENT HOUSING PLANNING
--- NOTE | 2019-12-14 16:58 | NUR ---
CASE MANAGEMENT: REVIEW 12/14/2019 SI;SEPSIS. UTI. VS: T 97.5 HR 102 RR 18 B/P 144/78 SATS 94% ON RA LABS: WBC 4.4 BUN 30 CR 1.7 GLU 128 IS:DEPAKOTE PO BID ELIQUIS PO BID ASA PO QD DIGOXIN PO QD LOPRESSOR PO Q12H CEFTRIAXONE IV Q24H CARDIZEM PO Q6H RISPERDAL PO QHS TELE DCP: [facility] V. SN[facility]
--- NOTE | 2019-12-14 19:12 | NUR ---
NURSE HAND-OFF REPORT: Important Events on Shift: Venous duplex negative, Pt evaluation, CXR negative Patient Status: Full Code and Stable Diet: NSA Pending Orders: [] Pending Results/Labs:[] Pending MD notification:[] Latest Vital Signs: Temperature 97.9 , Pulse 102 , B/P 144 /78 , Respiratory Rate 22 , O2 SAT 95 , Room Air, O2 Flow Rate . Vital Sign Comment: Digoxin 0.25mg given [address] Meek and PO Digoxin 0.125mg to start tomorrow. EKG Rhythm: Atrial Fibrillation Rhythm change?: N MD Notified?: Y -MD Gaviota UNDERWOOD Response: Latest Abreu Fall Score: 85 Fall Risk: High Risk Safety Measures: Call light Within Reach, Bed Alarm Zone 2, Side Rails Side Rails x2, Bed position Low and Locked. Fall Precautions: Yellow Socks Yellow Gown Door Sign Patient Fall Education Report given to Teddy.
--- NOTE | 2019-12-14 19:15 | NUR ---
NURSE NOTES: RECEIVED REPORT FROM NOEL GARCIA. PATIENT SEEN UP IN WHEELCHAIR, ATTEMPTING TO GET BACK INTO BED UNASSISTED. AWAKE, OX2, VERBALLY RESPONSIVE AND ABLE TO MAKE NEEDS KNOWN- PATIENT NOTED TO BE CONSTANTLY SAYING "MEOW". NO COMPLAINTS OF PAIN OR DISCOMFORT AT THIS TIME. BREATHING IS EVEN AND UNLABORED ON ROOM AIR, NO S/SX OF DISTRESS NOTED. IV SITE ON MARBELLA PATENT, INTACT, ASYMPTOMATIC, SALINE-LOCKED. PATIENT CURRENTLY REFUSING PUREWICK USE. FALL AND ASPIRATION PRECAUTIONS IN PLACE. BED LOCKED AND IN LOWEST IN POSITION, SIDERAILS UP X 3. BED ALARM ACTIVATED. CALL LIGHT WITHIN REACH. WILL CONTINUE TO MONITOR FOR ANY CHANGES.
[2019-12-14] MEDS: LORazepam Inj 2mg/ml 1ml IV PRN (19:45)
[2019-12-14 20:00] VITALS: BP 156/82
--- NOTE | 2019-12-14 23:12 | Psych Consult Progress Note ---
Psychiatry Progress Note Psychiatry Progress Note Medications Current Medications Medications (Trade) Dose Ordered Sig/Shiraz Route PRN Reason Start Time Stop Time Status Last Admin Dose Admin Acetaminophen (Tylenol) 650 mg Q4H PRN ORAL Mild Pain (Pain Scale 1-3) 12/12/19 22:15 01/11/20 22:14 12/13/19 20:27 Acetaminophen (Tylenol) 650 mg Q4H PRN ORAL Temp >100.5 12/12/19 22:15 01/11/20 22:14 Apixaban (Eliquis) 5 mg BID ORAL 12/13/19 18:00 03/12/20 17:59 12/14/19 17:31 Aspirin (ASA) 81 mg DAILY ORAL 12/13/19 09:00 01/27/20 08:59 12/14/19 09:34 Bacitracin (Bacitracin 15gm tube) 1 applic BID TOPIC 12/13/19 09:00 03/12/20 08:59 12/14/19 17:32 Ceftriaxone Sodium 1 gm/ Dextrose 55 ml @ 110 mls/hr Q24H IVPB 12/14/19 14:00 12/21/19 13:59 12/14/19 13:49 Clotrimazole (Lotrimin) 1 applic TWICE A DAY TOPIC 12/13/19 09:00 03/12/20 08:59 12/14/19 17:32 Dextrose (Dextrose 50%) 25 ml Q30M PRN IV Hypoglycemia 12/12/19 22:15 03/11/20 22:14 Dextrose (Dextrose 50%) 50 ml Q30M PRN IV Hypoglycemia 12/12/19 22:15 03/11/20 22:14 Digoxin (Lanoxin) 0.125 mg DAILY ORAL 12/15/19 09:00 03/14/20 08:59 Diltiazem HCl (Cardizem Tab) 90 mg Q6HR ORAL 12/14/19 12:00 01/13/20 11:59 12/14/19 17:32 Diphenhydramine HCl (Benadryl) 25 mg Q6H PRN ORAL Itching/Pruritis 12/12/19 22:15 01/11/20 22:14 Divalproex Sodium (Depakote) 500 mg BID ORAL 12/12/19 23:00 01/11/20 22:59 12/14/19 17:31 Docusate Sodium (Colace) 200 mg TWICE A DAY ORAL 12/13/19 09:00 01/12/20 08:59 12/14/19 17:31 Famotidine (Pepcid) 10 mg DAILY ORAL 12/13/19 09:00 03/12/20 08:59 12/14/19 09:32 Ipratropium [place] (Atrovent) 500 mcg TIDRT HHN 12/12/19 22:15 12/17/19 22:14 12/14/19 19:32 Levalbuterol HCl (Xopenex) 1.25 mg TIDPRN PRN HHN sob 12/14/19 12:30 12/19/19 12:29 Lorazepam (Ativan 2mg/ml 1ml) 0.5 mg Q4H PRN IV For Anxiety 12/12/19 22:15 12/19/19 22:14 12/14/19 19:45 Magnesium Hydroxide (Mom) 30 ml HSPRN PRN ORAL Constipation 12/12/19 22:15 01/11/20 22:14 Metoprolol Tartrate (Lopressor) 25 mg Q12HR ORAL 12/13/19 21:00 03/12/20 20:59 12/14/19 20:18 Nitroglycerin (Ntg) 0.4 mg Q5M PRN SL Prn Chest Pain 12/12/19 22:15 01/11/20 22:14 Ondansetron HCl (Zofran) 4 mg Q6H PRN IVP Nausea & Vomiting 12/12/19 22:15 01/11/20 22:14 12/13/19 02:56 Potassium Chloride (K-Dur) 20 meq DAILY ORAL 12/13/19 09:00 03/12/20 08:59 12/14/19 09:33 Risperidone (RisperDAL) 3 mg QHS ORAL 12/13/19 21:00 01/27/20 20:59 12/14/19 20:18 Neurological/Psychiatric: Reports: anxiety, depressed, emotional problems Allergies: Coded Allergies: ERYTHROMYCIN BASE (Verified Allergy, Severe, 12/12/19) HALOPERIDOL (Verified Allergy, Unknown, 12/12/19) VANCOMYCIN (Unverified Adverse Reaction, Intermediate, Shortness of Breath , 12/12/19) Objective Data Height (Feet): 5 Height (Inches): 6.00 Weight (Pounds): 298 General Appearance: alert, morbidly obese Additional Comments: Alert and oriented times self, place. Mood is agitated. Affect is flat. Thought process, there is a paucity of thought content. Thought content, no suicidal or homicidal ideation. Cognition is impaired. Insight and judgment is impaired. Assessment/Plan Status: stable Assessment/Plan: ASSESSMENT: [place] I Schizophrenia. [place] II Deferred. [place] III Recently diagnosed with COVID-19. [place] IV Homelessness. [place] V 55 PLAN: 1. Start the patient on risperidone. 2. Depakote. 3. Discussed with Dr. Dumont. Harris Ballesteros MD Dec 14, 2019 23:12
[2019-12-15] VITALS (7 sets, daily range): BP systolic 128–178; BP diastolic 70–93
[2019-12-15] MEDS: dilTIAZem HCl 90mg tab ORAL SCH ×4 (00:23→17:26)
--- NOTE | 2019-12-15 04:29 | Consultation ---
DATE OF CONSULTATION: 12/13/2019 CONSULTING PHYSICIAN: Harris Ballesteros M.D. HISTORY OF PRESENT ILLNESS: This is a 69-year-old female, who is well known to me from previous hospitalization at [facility]. The patient has a history of schizophrenia, hypertension, COPD, recently was diagnosed with COVID. She is admitted to the hospital for a fall. The patient is easily agitated and delusional. She is a poor historian. She uses wheelchair, however, she is able to walk. PAST PSYCHIATRIC HISTORY: Schizophrenia, several psychiatric hospitalization, and is noncompliant with medication. PAST MEDICAL HISTORY: Obesity, diabetes, COPD, hypertension. ALLERGIES: Erythromycin, haloperidol, and vancomycin. SUBSTANCE ABUSE HISTORY: She is a smoker. MENTAL STATUS EXAMINATION: Alert and oriented times self, place. Mood is agitated. Affect is flat. Thought process, there is a paucity of thought content. Thought content, no suicidal or homicidal ideation. Cognition is impaired. Insight and judgment is impaired. ASSESSMENT: [place] I Schizophrenia. [place] II Deferred. [place] III Recently diagnosed with COVID-19. [place] IV Homelessness. [place] V 55 PLAN: 1. Start the patient on risperidone. 2. Depakote. 3. Discussed with Dr. Dumont. Harris Ballesteros M.D. DR: RYNE JOB#: [id number] CC: ALEXANDREA
[2019-12-15] MEDS: Ipratropium 0.02% Inh Soln 2.5ml UD HHN SCH ×3 (06:47→19:58)
--- NOTE | 2019-12-15 07:30 | NUR ---
NURSE NOTES: Received Pt report from NOEL Gramajo. Pt is sitting in bed, disheveled, confused, AOx1, stable and saturating well on RA. Pt has no s/s or complaints of distress at this time. Pt continuously yells "i want to go home, i want to go home", unable to be calmed or reoriented. Pt has MARBELLA 22g SL, asymptomatic and intact. Pt bilateral lower edema 2+, and discoloration. No pain at this time. Pt bed low and locked, call light in reach, bed alarm on and pt education provided. Unable to verbalize understanding. Will continue to monitor.
--- NOTE | 2019-12-15 07:40 | NUR ---
NURSE HAND-OFF REPORT: Important Events on Shift: AGITATION, D/C PLANNING Patient Status: STABLE Diet: REGULAR ANNA Pending Orders: N/A Pending Results/Labs: 9/5 AM LABS Pending MD notification: N/A Latest Vital Signs: Temperature 98.1 , Pulse 98 , B/P 128 /87 , Respiratory Rate 20 , O2 SAT 96 , Room Air, O2 Flow Rate . Vital Sign Comment: STABLE EKG Rhythm: Atrial Fibrillation Rhythm change?: N MD Notified?: Y -MD Gaviota UNDERWOOD Response: Latest Abreu Fall Score: 85 Fall Risk: High Risk Safety Measures: Call light Within Reach, Bed Alarm Zone 1, Side Rails Side Rails x3, Bed position Low and Locked. Fall Precautions: Yellow Socks Yellow Gown Door Sign Patient Fall Education Report given to NOEL GREENE.
--- NOTE | 2019-12-15 08:30 | Pulmonology Progress Note ---
Luz Bowen BOLT HEADER 12/15/19 0830: Subjective ROS Limited/Unobtainable: Yes Allergies: Coded Allergies: ERYTHROMYCIN BASE (Verified Allergy, Severe, 12/12/19) HALOPERIDOL (Verified Allergy, Unknown, 12/12/19) VANCOMYCIN (Unverified Adverse Reaction, Intermediate, Shortness of Breath , 12/12/19) Objective Last 24 Hour Vital Signs Date Time Temp Pulse Resp B/P (MAP) Pulse Ox O2 Delivery O2 Flow Rate FiO2 12/15/19 08:00 98.1 89 20 173/93 (119) 96 12/15/19 06:48 102 20 99 Room Air 21 98 18 95 12/15/19 05:47 98 128/87 12/15/19 04:00 96 12/15/19 04:00 98.1 98 20 128/87 (101) 96 12/15/19 00:23 96 156/72 12/15/19 00:00 98.1 101 20 152/76 (101) 93 12/15/19 00:00 97 12/14/19 21:00 Room Air 12/14/19 20:18 100 156/82 12/14/19 20:15 100 19 156/82 99 12/14/19 20:00 97.5 100 20 156/82 (106) 99 12/14/19 20:00 108 12/14/19 19:45 108 22 165/80 97 12/14/19 19:32 106 20 98 Room Air 21 109 20 94 12/14/19 17:32 102 144/78 12/14/19 16:00 97.9 93 22 137/95 (109) 95 12/14/19 16:00 96 12/14/19 13:48 102 12/14/19 13:23 100 20 99 Room Air 21 98 20 95 12/14/19 12:00 97.5 100 18 144/78 (100) 94 12/14/19 12:00 102 12/14/19 11:35 108 12/14/19 11:35 108 138/82 12/14/19 09:33 108 138/82 12/14/19 09:00 Room Air Intake and Output 12/14/19 12/15/19 19:00 07:00 Intake Total 300 ml 360 ml Balance 300 ml 360 ml Intake Oral 300 ml 360 ml # Voids 3 3 # Bowel Movements 2 Objective General Appearance: other - morbidly obese somewhat anxious female in NAD Lines, tubes and drains: peripheral HEENT: normocephalic, atraumatic, anicteric, mucous membranes moist Neck: non-tender Respiratory/Chest: chest wall non-tender, no accessory muscle use, decreased breath sounds Cardiovascular/Chest: irregularly irregular - A fib , rate overall controlled now , distant heart sounds Abdomen: normal bowel sounds, non tender , obese, soft Extremities: no calf tenderness, moderate edema - +2 BLE, Skin Exam: warm/dry, multiple tattoos Neurologic: abnormal gait - w/chair bound , alert, responsive, anxious Musculoskeletal: normal muscle bulk Microbiology Date/Time Source Procedure Growth Status 12/12/19 21:00 Nasal Nares MRSA Culture - Final Staphylococcus Aureus - Mrsa Complete 12/12/19 20:40 Nasopharynx SARS-CoV-2 RdRp Gene Assay - Final Complete 12/12/19 21:00 Urine,Clean Catch Urine Culture - Final Escherichia Coli - Esbl Complete 12/12/19 21:00 Rectum - Final NO CARBAPENEM-RESISTANT ENTEROBACTERI... Complete 12/12/19 21:00 Rectum VRE Culture - Final Enterococcus Faecalis - Vre Complete Current Medications Medications (Trade) Dose Ordered Sig/Shiraz Route PRN Reason Start Time Stop Time Status Last Admin Dose Admin Acetaminophen (Tylenol) 650 mg Q4H PRN ORAL Mild Pain (Pain Scale 1-3) 12/12/19 22:15 01/11/20 22:14 12/13/19 20:27 Acetaminophen (Tylenol) 650 mg Q4H PRN ORAL Temp >100.5 12/12/19 22:15 01/11/20 22:14 Apixaban (Eliquis) 5 mg BID ORAL 12/13/19 18:00 03/12/20 17:59 12/14/19 17:31 Aspirin (ASA) 81 mg DAILY ORAL 12/13/19 09:00 01/27/20 08:59 12/14/19 09:34 Bacitracin (Bacitracin 15gm tube) 1 applic BID TOPIC 12/13/19 09:00 03/12/20 08:59 12/14/19 17:32 Ceftriaxone Sodium 1 gm/ Dextrose 55 ml @ 110 mls/hr Q24H IVPB 12/14/19 14:00 12/21/19 13:59 12/14/19 13:49 Clotrimazole (Lotrimin) 1 applic TWICE A DAY TOPIC 12/13/19 09:00 03/12/20 08:59 12/14/19 17:32 Dextrose (Dextrose 50%) 25 ml Q30M PRN IV Hypoglycemia 12/12/19 22:15 03/11/20 22:14 Dextrose (Dextrose 50%) 50 ml Q30M PRN IV Hypoglycemia 12/12/19 22:15 03/11/20 22:14 Digoxin (Lanoxin) 0.125 mg DAILY ORAL 12/15/19 09:00 03/14/20 08:59 Diltiazem HCl (Cardizem Tab) 90 mg Q6HR ORAL 12/14/19 12:00 01/13/20 11:59 12/15/19 05:47 Diphenhydramine HCl (Benadryl) 25 mg Q6H PRN ORAL Itching/Pruritis 12/12/19 22:15 01/11/20 22:14 Divalproex Sodium (Depakote) 500 mg BID ORAL 12/12/19 23:00 01/11/20 22:59 12/14/19 17:31 Docusate Sodium (Colace) 200 mg TWICE A DAY ORAL 12/13/19 09:00 01/12/20 08:59 12/14/19 17:31 Famotidine (Pepcid) 10 mg DAILY ORAL 12/13/19 09:00 03/12/20 08:59 12/14/19 09:32 Ipratropium [place] (Atrovent) 500 mcg TIDRT HHN 12/12/19 22:15 12/17/19 22:14 12/15/19 06:47 Levalbuterol HCl (Xopenex) 1.25 mg TIDPRN PRN HHN sob 12/14/19 12:30 12/19/19 12:29 Lorazepam (Ativan 2mg/ml 1ml) 0.5 mg Q4H PRN IV For Anxiety 12/12/19 22:15 12/19/19 22:14 12/14/19 19:45 Magnesium Hydroxide (Mom) 30 ml HSPRN PRN ORAL Constipation 12/12/19 22:15 01/11/20 22:14 Metoprolol Tartrate (Lopressor) 25 mg Q12HR ORAL 12/13/19 21:00 03/12/20 20:59 12/14/19 20:18 Nitroglycerin (Ntg) 0.4 mg Q5M PRN SL Prn Chest Pain 12/12/19 22:15 01/11/20 22:14 Ondansetron HCl (Zofran) 4 mg Q6H PRN IVP Nausea & Vomiting 12/12/19 22:15 01/11/20 22:14 12/13/19 02:56 Potassium Chloride (K-Dur) 20 meq DAILY ORAL 12/13/19 09:00 03/12/20 08:59 12/14/19 09:33 Risperidone (RisperDAL) 3 mg QHS ORAL 12/13/19 21:00 01/27/20 20:59 12/14/19 20:18 Assessment/Plan Assessment/Plan ASSESSMENT COPD Bronchospasm Atrial fibrillation with rapid ventricular response Congestive heart failure Acute renal failure UTI Status post ground fall Tobacco dependency Morbid obesity Homeless PLAN OF CARE tele hold steroids for now, given acute renal failure, no wheezing, s/p loading dose of steroids in ED closely monitor resp status and oxygenation O2 titrate to keep sat above 92% pulm toilet with Atrovent ATC and Xopenex PRN Venous Duplex BLE -NGT start empiric abx/ceftriaxone CXR 12/13 with equivocal mild interstitial congestion, unchanged , cardiomegaly UCX+ E coli ESBL, S to Macrobid no fevers, no leukocytosis, possibly colonization, I m cautious to start Macrobid given renal failure- per primary/nephro discretion will dc ceftriaxone declined Nicotine patch on a/c rate control- per cardio recs: on BB, Cardizem and Digoxin monitor volumes ECHO with pEF no evidence of WMA GI prophylaxis renal US noted monitor renal parameters, lytes avoid nephrotoxics as possible correct lytes as needed creat trending down discussion on weight loss if receptive - not at this time; anxious and wants to go home pain management anxiolytic prn SW consult for placement case discussed and evaluated by supervising physician ivy mccarty for a consult! Igor Carpio MD 12/15/19 1320: Subjective Allergies: Coded Allergies: ERYTHROMYCIN BASE (Verified Allergy, Severe, 12/12/19) HALOPERIDOL (Verified Allergy, Unknown, 12/12/19) VANCOMYCIN (Unverified Adverse Reaction, Intermediate, Shortness of Breath , 12/12/19) Assessment/Plan Assessment/Plan Patient seen and examined with BOLT HEADER. Agree with above A&P as it reflects our joint deliberations. Luz Bowen NP Dec 15, 2019 08:30 Igor Carpio MD Dec 15, 2019 13:20
[2019-12-15] MEDS: Eliquis 5mg tablet ORAL SCH ×2 (08:38→17:31)
[2019-12-15] MEDS: Depakote 500mg tab ORAL SCH ×2 (08:39→17:25)
[2019-12-15] MEDS: Docusate 100mg cap ORAL SCH ×2 (08:39→17:31)
[2019-12-15] MEDS: Aspirin Baby 81mg ORAL SCH (08:40)
[2019-12-15] MEDS: LORazepam Inj 2mg/ml 1ml IV PRN ×2 (08:42→16:37)
[2019-12-15] MEDS ORDERED: Digoxin 0.125mg tab ORAL SCH (09:00)
--- NOTE | 2019-12-15 10:53 | NUR ---
RD ASSESSMENT & RECOMMENDATIONS SEE CARE ACTIVITY FOR COMPLETE ASSESSMENT DAILY ESTIMATED NEEDS: Needs based on Obesity, Cardiac, DM/ 80.5kg 20-23 kcals/kg 9840-4429 total kcals 1-1.3 g protein/kg 78-101 g total protein 20-25 mL/kg 1888-8345 total fluid mLs NUTRITION DIAGNOSIS: 1) Class III Obesity R/T lifestyle factors? excessive energy intake as evidenced by pt w/ BMI >50, @ 245% IBW. 2) Altered nutrition related lab values R/T diabetes, altered lipid metabolism, cardiac hx as evidenced by A1C of 7.1, elev triglyceride 239, elev BNP 4671, CURRENT DIET:ANNA PO DIET RECOMMENDATIONS: CARDIAC + CCHO LOW DIET/ texture as tolerated ADDITIONAL RECOMMENDATIONS: 1) Calibrated bedscale wt 2) Consider NISS- A1C of 7.1 3) Consider lipid lowering med (elev triglyceride 239) 4) Wound healing: MVI x 1, Vit C 250mg QD Armand BID
[2019-12-15] MEDS: Bacitracin Oint 15gm Tube TOPIC SCH ×2 (11:12→16:38)
--- NOTE | 2019-12-15 12:50 | Nephrology Progress Note ---
Subjective Date patient seen: Dec 15, 2019 Time patient seen: 12:47 ROS Limited/Unobtainable: No Allergies: Coded Allergies: ERYTHROMYCIN BASE (Verified Allergy, Severe, 12/12/19) HALOPERIDOL (Verified Allergy, Unknown, 12/12/19) VANCOMYCIN (Unverified Adverse Reaction, Intermediate, Shortness of Breath , 12/12/19) Subjective A/P 1) NATALIE on CKD 3B - Cr down to 1.7 - avoid nephrotoxins. Stable 2) Atrial fibrillation with rapid ventricular response - Congestive heart failure - mgmt per cardiology 3) UTI- Abx to continue Objective Last 24 Hour Vital Signs Date Time Temp Pulse Resp B/P (MAP) Pulse Ox O2 Delivery O2 Flow Rate FiO2 12/15/19 12:00 96.8 71 18 163/81 (108) 97 12/15/19 09:10 89 20 173/93 96 12/15/19 09:00 Room Air 12/15/19 08:42 89 20 173/93 96 12/15/19 08:39 89 12/15/19 08:39 89 173/93 12/15/19 08:00 98.1 89 20 173/93 (119) 96 12/15/19 08:00 141 12/15/19 06:48 102 20 99 Room Air 21 98 18 95 12/15/19 05:47 98 128/87 12/15/19 04:00 96 12/15/19 04:00 98.1 98 20 128/87 (101) 96 12/15/19 00:23 96 156/72 12/15/19 00:00 98.1 101 20 152/76 (101) 93 12/15/19 00:00 97 12/14/19 21:00 Room Air 12/14/19 20:18 100 156/82 12/14/19 20:00 97.5 100 20 156/82 (106) 99 12/14/19 20:00 108 12/14/19 19:45 108 22 165/80 97 12/14/19 19:32 106 20 98 Room Air 21 109 20 94 12/14/19 17:32 102 144/78 12/14/19 16:00 97.9 93 22 137/95 (109) 95 12/14/19 16:00 96 12/14/19 13:48 102 12/14/19 13:23 100 20 99 Room Air 21 98 20 95 Intake and Output 12/14/19 12/15/19 19:00 07:00 Intake Total 300 ml 360 ml Balance 300 ml 360 ml Intake Oral 300 ml 360 ml # Voids 3 3 # Bowel Movements 2 Height (Feet): 5 Height (Inches): 6.00 Weight (Pounds): 298 Poli Grant MD Dec 15, 2019 12:50
--- NOTE | 2019-12-15 13:07 | NUR ---
CASE MANAGEMENT:REVIEW 12/15/19 SI: SEPSIS. UTI 96.8 71 18 163/81 97% ON RA ISl DIGOXIN PO QD CARDIZEM PO Q6HRS LOPRESSOR PO Q12 RISPERDAL PO QHS ELIQUIS PO BID ASA PO QD : TELEMETRY STATUS DCP: FROM STREET PLAN: REQUESTING SNF PLACEMENT
--- NOTE | 2019-12-15 17:30 | NUR ---
NURSE HAND-OFF REPORT: Important Events on Shift: Pt unwitnessed fall during shift change, restraint order Patient Status: FC Diet: no added salt diet Pending Orders: Pending Results/Labs: chest xray, head ct no contrast Pending MD notification:[] Latest Vital Signs: Temperature 98.2 , Pulse 75 , B/P 163 /81 , Respiratory Rate 20 , O2 SAT 99 , Room Air, O2 Flow Rate . Vital Sign Comment: EKG Rhythm: Atrial Fibrillation Rhythm change?: N MD Notified?: Y -MD Gaviota UNDERWOOD Response: Latest Abreu Fall Score: 85 Fall Risk: High Risk Safety Measures: Call light Within Reach, Bed Alarm Zone 1, Side Rails Side Rails x3, Bed position Low and Locked. Fall Precautions: Yellow Socks Yellow Gown Door Sign Patient Fall Education Report given to Angela. COHEN.
--- NOTE | 2019-12-15 17:41 | NUR ---
NURSE NOTES: Pt refusing telemetry monitoring. Pt ripped off tele box and is sitting on it, refusing to get up. Pt explained benefits and risks of tele monitoring. Pt continues to refuse.
--- NOTE | 2019-12-15 19:20 | NUR ---
NURSE NOTES: Pt had unwitnessed fall during shift changed. Pt found sitting on floor sitting up. Pt assessment of R knee bruised, and small skin tear on L second toe and R second toe with scant bleeding. Pt mental status remains baseline AOx1-2. SAFETY INVESTIGATOR called for unwitnessed fall. Pt was assisted back to bed. Dr Dumont was called at this time. Dr Dumont was notified of Pts bruising, skin tear and pain. gave orders for soft wrist restrains, R knee xray and head CT without contrast. orders acknowledged and carried out. Addendum: 12/15/19 at 2022 by Leatha Reyes RN RN Facesheet showed no next of kin, POA or family to notify. Instructed by nursing admissions supervisor to just have notified .
--- NOTE | 2019-12-15 19:40 | NUR ---
NURSE NOTES: Report received from NOEL Zhang Patient had fall at 1915. Dr. Dumont made aware of patient attempting to get up and very agitated, yelling. Per NOEL Zhang bilateral soft wrist restraints ordered by Dr. Dumont. Bed alarm on and side rails up. Call light within reach. Bed at lowest position and locked. Vital signs checked per S/P fall protocol. Patient is stable at this time except for pain in right knee. CT of head and xray of right knee to be done per dr. dumont. old testament professor intact. Will continue with plan of care.
--- NOTE | 2019-12-15 20:38 | Diagnostic Imaging Report ---
EXAM: XR Right Knee, 3 Views CLINICAL HISTORY: FALL TECHNIQUE: Three views of the right knee. COMPARISON: No relevant prior studies available. IMPRESSION: No fracture or subluxation. Mild medial compartment joint space loss without spurs. Severe patellofemoral compartment joint space loss without spurs. Ossicles/calcification along the femoral epicondyles on the medial side, likely from prior injury. No significant effusion.
--- NOTE | 2019-12-15 20:46 | Diagnostic Imaging Report ---
EXAM: CT Head Without Intravenous Contrast CLINICAL HISTORY: FALL TECHNIQUE: Axial computed tomography images of the head/brain without intravenous contrast. CTDI is 213.0 mGy and DLP is 2386.90 mGy-cm. One or more of the following dose reduction techniques were used: automated exposure control, adjustment of the mA and/or kV according to patient size, use of iterative reconstruction technique. COMPARISON: No relevant prior studies available. FINDINGS: Brain: No hemorrhage or mass effect. Ventricles: No hydrocephalus. Bones/joints: Unremarkable. Soft tissues: Unremarkable. Sinuses: Unremarkable. Mastoid air cells: Clear. IMPRESSION: No acute hemorrhage, hydrocephalus, or mass effect.
--- NOTE | 2019-12-15 21:00 | NUR ---
NURSE NOTES: Dr. Dumont made aware of negative Head CT and right knee xray results. No hemorrhage and no fracture.
--- NOTE | 2019-12-15 22:22 | Psych Consult Progress Note ---
Psychiatry Progress Note Psychiatry Progress Note Subjective the pt is delusional and irritable low energy Medications Current Medications Medications (Trade) Dose Ordered Sig/Shiraz Route PRN Reason Start Time Stop Time Status Last Admin Dose Admin Acetaminophen (Tylenol) 650 mg Q4H PRN ORAL Mild Pain (Pain Scale 1-3) 12/12/19 22:15 01/11/20 22:14 12/15/19 21:13 Acetaminophen (Tylenol) 650 mg Q4H PRN ORAL Temp >100.5 12/12/19 22:15 01/11/20 22:14 Apixaban (Eliquis) 5 mg BID ORAL 12/13/19 18:00 03/12/20 17:59 12/15/19 17:31 Aspirin (ASA) 81 mg DAILY ORAL 12/13/19 09:00 01/27/20 08:59 12/15/19 08:40 Bacitracin (Bacitracin 15gm tube) 1 applic BID TOPIC 12/13/19 09:00 03/12/20 08:59 12/15/19 16:38 Clotrimazole (Lotrimin) 1 applic TWICE A DAY TOPIC 12/13/19 09:00 03/12/20 08:59 12/15/19 16:38 Dextrose (Dextrose 50%) 25 ml Q30M PRN IV Hypoglycemia 12/12/19 22:15 03/11/20 22:14 Dextrose (Dextrose 50%) 50 ml Q30M PRN IV Hypoglycemia 12/12/19 22:15 03/11/20 22:14 Digoxin (Lanoxin) 0.125 mg DAILY ORAL 12/15/19 09:00 03/14/20 08:59 12/15/19 08:39 Diltiazem HCl (Cardizem Tab) 90 mg Q6HR ORAL 12/14/19 12:00 01/13/20 11:59 12/15/19 17:26 Diphenhydramine HCl (Benadryl) 25 mg Q6H PRN ORAL Itching/Pruritis 12/12/19 22:15 01/11/20 22:14 12/15/19 17:26 Divalproex Sodium (Depakote) 500 mg BID ORAL 12/12/19 23:00 01/11/20 22:59 12/15/19 17:25 Docusate Sodium (Colace) 200 mg TWICE A DAY ORAL 12/13/19 09:00 01/12/20 08:59 12/15/19 17:31 Famotidine (Pepcid) 10 mg DAILY ORAL 12/13/19 09:00 03/12/20 08:59 12/15/19 08:40 Ipratropium [place] (Atrovent) 500 mcg TIDRT HHN 12/12/19 22:15 12/17/19 22:14 12/15/19 13:54 Levalbuterol HCl (Xopenex) 1.25 mg TIDPRN PRN HHN sob 12/14/19 12:30 12/19/19 12:29 Lorazepam (Ativan 2mg/ml 1ml) 0.5 mg Q4H PRN IV For Anxiety 12/12/19 22:15 12/19/19 22:14 12/15/19 16:37 Magnesium Hydroxide (Mom) 30 ml HSPRN PRN ORAL Constipation 12/12/19 22:15 01/11/20 22:14 Metoprolol Tartrate (Lopressor) 25 mg Q12HR ORAL 12/13/19 21:00 03/12/20 20:59 12/15/19 21:11 Nitroglycerin (Ntg) 0.4 mg Q5M PRN SL Prn Chest Pain 12/12/19 22:15 01/11/20 22:14 Ondansetron HCl (Zofran) 4 mg Q6H PRN IVP Nausea & Vomiting 12/12/19 22:15 01/11/20 22:14 12/13/19 02:56 Potassium Chloride (K-Dur) 20 meq DAILY ORAL 12/13/19 09:00 03/12/20 08:59 12/15/19 08:38 Risperidone (RisperDAL) 3 mg QHS ORAL 12/13/19 21:00 01/27/20 20:59 12/15/19 21:11 Neurological/Psychiatric: Reports: anxiety, depressed, emotional problems Allergies: Coded Allergies: ERYTHROMYCIN BASE (Verified Allergy, Severe, 12/12/19) HALOPERIDOL (Verified Allergy, Unknown, 12/12/19) VANCOMYCIN (Unverified Adverse Reaction, Intermediate, Shortness of Breath , 12/12/19) Objective Data Height (Feet): 5 Height (Inches): 6.00 Weight (Pounds): 298 General Appearance: alert, morbidly obese Additional Comments: Alert and oriented times self, place. Mood is agitated. Affect is flat. Thought process, there is a paucity of thought content. Thought content, no suicidal or homicidal ideation. Cognition is impaired. Insight and judgment is impaired. Assessment/Plan Lawrence I: ASSESSMENT: Lawrence I Schizophrenia. Lawrence II Deferred. Lawrence III Recently diagnosed with COVID-19. Lawrence IV Homelessness. Lawrence V 55 PLAN: 1. Start the patient on risperidone. 2. Depakote. 3. Discussed with Dr. Dumont. Status: stable Status Narrative ASSESSMENT: Lawrence I Schizophrenia. Lawrence II Deferred. Lawrence III Recently diagnosed with COVID-19. Lawrence IV Homelessness. Lawrence V 55 PLAN: 1. Start the patient on risperidone. 2. Depakote. 3. Discussed with Dr. Dumont. Assessment/Plan: ASSESSMENT: Lawrence I Schizophrenia. Lawrence II Deferred. Lawrence III Recently diagnosed with COVID-19. Lawrence IV Homelessness. Lawrence V 55 PLAN: 1. Start the patient on risperidone. 2. Depakote. 3. Discussed with Dr. Dumont. Harris Ballesteros MD Dec 15, 2019 22:22
--- NOTE | 2019-12-15 23:00 | NUR ---
NURSE NOTES: Dr. Ballesteros made aware of patient still screaming and attempting to get up continuously and disrupting other patients despite administering risperidal 3mg. New orders noted and carried out to D/C current Benadryl, Ativan and Risperidone order. Orders noted and carried out to increase dosage on these 3 medications.
[2019-12-15] MEDS ORDERED: DiphenhydrAMINE 50mg/ml Inj IVP PRN (23:30)
[2019-12-15] MEDS ORDERED: LORazepam Inj 2mg/ml 1ml IV PRN (23:30)
[2019-12-16] VITALS (10 sets, daily range): BP systolic 110–146; BP diastolic 60–99
[2019-12-16] MEDS ORDERED: dilTIAZem HCl 50mg/10ml Inj IVP SCH (02:15)
--- NOTE | 2019-12-16 05:15 | NUR ---
NURSE NOTES: Dr. Meek called and message left made aware that patient's heart rate reached 190. Cardizem 90mg given PO. EKG done, will continue to monitor and await call back from Dr. Meek.
[2019-12-16] MEDS: dilTIAZem HCl 90mg tab ORAL SCH ×4 (06:00→17:43)
--- NOTE | 2019-12-16 06:45 | NUR ---
NURSE NOTES: Dr. Dumont made aware of patient vomiting 100ml of dark brown liquid. Stated he will check for GI MD on the case and follow up with CBC.
--- NOTE | 2019-12-16 07:15 | NUR ---
NURSE NOTES: Dr. Meek called back regarding patient's increased heart rate. Ordered Digoxin 0.25mg IVP now and repeat in 2 hours. Hold for SBP less than 60. Orders noted and carried out will endorse to NOEL Andino
[2019-12-16] MEDS ORDERED: Digoxin 0.5mg/2ml Inj IVP SCH ×4 (07:20→17:15)
--- NOTE | 2019-12-16 07:46 | NUR ---
NURSE HAND-OFF REPORT: Important Events on Shift:[Heart rate reached 190, Cardizem IVP given and Digoxin IVP given at 0740AM, patient vomited approx 100 cc dark brown liquid, Dr. Dumont made aware. Stat CBC ordered, Dr. Dumont to refer GI MD. Restraints on and monitored through night. Ativan and Benadryl IVP given for combative screaming behavior, disrupting other patients and attemting to remove restraints and get up. Patient Status: Alert oriented x1 to 2, Confused, agitated, screaming through night Diet: [Regular, ANNA but meds crushed due to spitting out whole pills.] Pending Orders: Pending Results/Labs: Pending MD notification:GI consult for vomiting of dark brown liquid 100cc Latest Vital Signs: Temperature 98.5 , Pulse 144 , B/P 115 /62 , Respiratory Rate 18 , O2 SAT 98 , Room Air, O2 Flow Rate . Vital Sign Comment: [Heart rate elevated throughout night] EKG Rhythm: A-fib/A-flutter Rhythm change?: N Notified?: Y -MD Gaviota UNDERWOOD Response: Orders noted Latest Abreu Fall Score: 85 Fall Risk: High Risk Safety Measures: Call light Within Reach, Bed Alarm Zone 1, Side Rails Side Rails x3, Bed position Low and Locked. Fall Precautions: Yellow Socks Yellow Gown Door Sign Patient Fall Education: Yes, Restraints applied Report given to [NOEL Andino].
--- NOTE | 2019-12-16 07:46 | General Progress Note ---
Assessment/Plan Problem List: (1) CKD (chronic kidney disease) stage 3, GFR 30-59 ml/min ICD Codes: N18.3 - Chronic kidney disease, stage 3 (moderate) SNOMED: 066531836 (2) COPD (chronic obstructive pulmonary disease) ICD Codes: J44.9 - Chronic obstructive pulmonary disease, unspecified SNOMED: 77665518 (3) Smoker ICD Codes: F17.200 - Nicotine dependence, unspecified, uncomplicated SNOMED: 89927908 (4) GERD (gastroesophageal reflux disease) ICD Codes: K21.9 - Gastro-esophageal reflux disease without esophagitis SNOMED: 874916619 (5) Atrial fibrillation with RVR ICD Codes: I48.91 - Unspecified atrial fibrillation SNOMED: 437077965418696 Status: stable Assessment/Plan: ? hematemesis ppi bid fu H&H monitor labs Subjective ROS Limited/Unobtainable: Yes Allergies: Coded Allergies: ERYTHROMYCIN BASE (Verified Allergy, Severe, 12/12/19) HALOPERIDOL (Verified Allergy, Unknown, 12/12/19) VANCOMYCIN (Unverified Adverse Reaction, Intermediate, Shortness of Breath , 12/12/19) Objective Last 24 Hour Vital Signs Date Time Temp Pulse Resp B/P (MAP) Pulse Ox O2 Delivery O2 Flow Rate FiO2 12/16/19 07:36 144 12/16/19 06:00 150 115/62 12/16/19 04:00 139 12/16/19 04:00 98.5 124 18 110/65 (80) 98 12/16/19 02:32 135 112/61 12/16/19 00:36 92 22 109/70 96 12/16/19 00:06 92 20 124/78 98 12/16/19 00:00 126 12/16/19 00:00 98.6 82 18 121/92 (102) 98 12/16/19 00:00 115 109/61 12/15/19 21:11 100 138/81 12/15/19 21:00 Room Air 12/15/19 20:00 98.9 97 18 138/90 (106) 94 12/15/19 20:00 126 12/15/19 19:15 98.9 94 Room Air 12/15/19 17:26 75 163/81 12/15/19 17:05 75 20 163/81 99 12/15/19 16:37 75 20 163/81 99 12/15/19 16:00 152 12/15/19 16:00 98.2 109 20 178/84 (115) 97 12/15/19 13:54 75 20 99 Room Air 21 73 18 96 12/15/19 12:00 125 12/15/19 12:00 71 163/81 12/15/19 12:00 96.8 71 18 163/81 (108) 97 12/15/19 09:00 Room Air 12/15/19 08:42 89 20 173/93 96 12/15/19 08:39 89 12/15/19 08:39 89 173/93 12/15/19 08:00 98.1 89 20 173/93 (119) 96 12/15/19 08:00 141 Intake and Output 12/15/19 12/16/19 19:00 07:00 Intake Total 1200 ml 800 ml Balance 1200 ml 800 ml Intake Oral 1200 ml 800 ml # Voids 2 # Bowel Movements 2 2 Height (Feet): 5 Height (Inches): 6.00 Weight (Pounds): 298 General Appearance: alert EENT: normal ENT inspection Neck: supple Cardiovascular: normal rate Respiratory/Chest: decreased breath sounds Abdomen: normal bowel sounds, non tender, soft Extremities: non-tender Mervin Victoria MD Dec 16, 2019 07:46
[2019-12-16] MEDS: Ipratropium 0.02% Inh Soln 2.5ml UD HHN SCH ×3 (07:52→19:40)
--- NOTE | 2019-12-16 08:27 | NUR ---
NURSE NOTES: Received report from NOEL Page. Pt awake, screaming, confused, and rambles. Sitter at the bedside, pt s/p fall on change of shift 12/14 at 1915. Digoxin administered by night RN, HR still running high at 130s. Will follow MD's order to give another dose of digoxin at 0930. IV site on R wrist patent and asymptomatic. Bed on lowest position, call light within reach. Will continue to monitor.
[2019-12-16] MEDS: Eliquis 5mg tablet ORAL SCH ×2 (09:00→17:43)
[2019-12-16] MEDS: Digoxin 0.125mg tab ORAL SCH (09:00)
[2019-12-16] MEDS: Docusate 100mg cap ORAL SCH ×2 (09:00→17:43)
[2019-12-16] MEDS: Depakote 500mg tab ORAL SCH ×2 (09:00→17:43)
[2019-12-16] MEDS: Bacitracin Oint 15gm Tube TOPIC SCH ×2 (09:00→18:26)
[2019-12-16] MEDS: Aspirin Baby 81mg ORAL SCH (09:00)
[2019-12-16] MEDS ORDERED: FLUPHENAZINE DECANOATE 25 MG/ML IM SCH (09:00)
--- NOTE | 2019-12-16 09:02 | Pulmonology Progress Note ---
Luz Bowen SENIOR CLINICAL PROJECT MANAGER 12/16/19 0901: Subjective ROS Limited/Unobtainable: Yes Allergies: Coded Allergies: ERYTHROMYCIN BASE (Verified Allergy, Severe, 12/12/19) HALOPERIDOL (Verified Allergy, Unknown, 12/12/19) VANCOMYCIN (Unverified Adverse Reaction, Intermediate, Shortness of Breath , 12/12/19) Subjective found on the floor blackener, apparently got out from her bed denies head injury or any pain was in A fib with RVR, currently rate stable on O2 via NC, pulse ox stable Objective Last 24 Hour Vital Signs Date Time Temp Pulse Resp B/P (MAP) Pulse Ox O2 Delivery O2 Flow Rate FiO2 12/16/19 08:00 98.1 102 18 134/60 (84) 98 12/16/19 07:52 105 20 99 Nasal Cannula 2.0 28 95 18 98 12/16/19 07:48 119 12/16/19 07:36 144 12/16/19 06:00 150 115/62 12/16/19 04:00 139 12/16/19 04:00 98.5 124 18 110/65 (80) 98 12/16/19 02:32 135 112/61 12/16/19 00:36 92 22 109/70 96 12/16/19 00:06 92 20 124/78 98 12/16/19 00:00 126 12/16/19 00:00 98.6 82 18 121/92 (102) 98 12/16/19 00:00 115 109/61 12/15/19 21:11 100 138/81 12/15/19 21:00 Room Air 12/15/19 20:00 98.9 97 18 138/90 (106) 94 12/15/19 20:00 126 12/15/19 19:15 98.9 94 Room Air 12/15/19 17:26 75 163/81 12/15/19 17:05 75 20 163/81 99 12/15/19 16:37 75 20 163/81 99 12/15/19 16:00 152 12/15/19 16:00 98.2 109 20 178/84 (115) 97 12/15/19 13:54 75 20 99 Room Air 21 73 18 96 12/15/19 12:00 125 12/15/19 12:00 71 163/81 12/15/19 12:00 96.8 71 18 163/81 (108) 97 12/15/19 09:00 Room Air Intake and Output 12/15/19 12/16/19 19:00 07:00 Intake Total 1200 ml 800 ml Balance 1200 ml 800 ml Intake Oral 1200 ml 800 ml # Voids 2 # Bowel Movements 2 2 Objective General Appearance: morbidly obese somewhat anxious female in NAD Lines, tubes and drains: peripheral HEENT: normocephalic, atraumatic, anicteric, mucous membranes moist Neck: non-tender Respiratory/Chest: chest wall non-tender, no accessory muscle use, decreased breath sounds Cardiovascular/Chest: irregularly irregular - A fib , rate overall controlled now , distant heart sounds Abdomen: normal bowel sounds, non tender , obese, soft Extremities: no calf tenderness, moderate edema - +2 BLE, Skin Exam: warm/dry, multiple tattoos Neurologic: abnormal gait - w/chair bound , alert, responsive, anxious Musculoskeletal: normal muscle bulk Current Medications Medications (Trade) Dose Ordered Sig/Shiraz Route PRN Reason Start Time Stop Time Status Last Admin Dose Admin Acetaminophen (Tylenol) 650 mg Q4H PRN ORAL Mild Pain (Pain Scale 1-3) 12/12/19 22:15 01/11/20 22:14 12/15/19 21:13 Acetaminophen (Tylenol) 650 mg Q4H PRN ORAL Temp >100.5 12/12/19 22:15 01/11/20 22:14 Apixaban (Eliquis) 5 mg BID ORAL 12/13/19 18:00 03/12/20 17:59 12/15/19 17:31 Aspirin (ASA) 81 mg DAILY ORAL 12/13/19 09:00 01/27/20 08:59 12/15/19 08:40 Bacitracin (Bacitracin 15gm tube) 1 applic BID TOPIC 12/13/19 09:00 03/12/20 08:59 12/15/19 16:38 Clotrimazole (Lotrimin) 1 applic TWICE A DAY TOPIC 12/13/19 09:00 03/12/20 08:59 12/15/19 16:38 Dextrose (Dextrose 50%) 25 ml Q30M PRN IV Hypoglycemia 12/12/19 22:15 03/11/20 22:14 Dextrose (Dextrose 50%) 50 ml Q30M PRN IV Hypoglycemia 12/12/19 22:15 03/11/20 22:14 Digoxin (Lanoxin) 0.125 mg DAILY ORAL 12/16/19 09:00 03/15/20 08:59 Digoxin (Lanoxin) 0.25 mg ONCE IVP 12/16/19 07:20 12/16/19 09:20 12/16/19 07:36 Digoxin (Lanoxin) 0.25 mg ONCE IVP 12/16/19 09:30 12/16/19 10:30 Diltiazem HCl (Cardizem Tab) 90 mg Q6HR ORAL 12/14/19 12:00 01/13/20 11:59 12/16/19 06:00 Diphenhydramine HCl (Benadryl) 50 mg Q6H PRN IVP Itching 12/15/19 23:30 01/14/20 23:29 12/16/19 00:06 Divalproex Sodium (Depakote) 500 mg BID ORAL 12/12/19 23:00 01/11/20 22:59 12/15/19 17:25 Docusate Sodium (Colace) 200 mg TWICE A DAY ORAL 12/13/19 09:00 01/12/20 08:59 12/15/19 17:31 Famotidine (Pepcid) 10 mg DAILY ORAL 12/13/19 09:00 03/12/20 08:59 12/15/19 08:40 Fluphenazine Decanoate (Prolixin Deconate(Long Acting)) 10 mg ONCE IM 12/16/19 09:00 12/16/19 12:00 Ipratropium [place] (Atrovent) 500 mcg TIDRT HHN 12/12/19 22:15 12/17/19 22:14 12/16/19 07:52 Levalbuterol HCl (Xopenex) 1.25 mg TIDPRN PRN HHN sob 12/14/19 12:30 12/19/19 12:29 Lorazepam (Ativan 2mg/ml 1ml) 2 mg Q4H PRN IVP For Anxiety 12/16/19 05:09 12/22/19 05:08 Magnesium Hydroxide (Mom) 30 ml HSPRN PRN ORAL Constipation 12/12/19 22:15 01/11/20 22:14 Metoprolol Tartrate (Lopressor) 25 mg Q12HR ORAL 12/13/19 21:00 03/12/20 20:59 12/15/19 21:11 Nitroglycerin (Ntg) 0.4 mg Q5M PRN SL Prn Chest Pain 12/12/19 22:15 01/11/20 22:14 Ondansetron HCl (Zofran) 4 mg Q6H PRN IVP Nausea & Vomiting 12/12/19 22:15 01/11/20 22:14 12/13/19 02:56 Pantoprazole (Protonix) 40 mg EVERY 12 HOURS IVP 12/16/19 09:00 01/15/20 08:59 Potassium Chloride (K-Dur) 20 meq DAILY ORAL 12/13/19 09:00 03/12/20 08:59 12/15/19 08:38 Risperidone (RisperDAL) 4 mg QHS ORAL 12/16/19 21:00 01/30/20 20:59 Assessment/Plan Assessment/Plan ASSESSMENT COPD Bronchospasm Atrial fibrillation with rapid ventricular response Congestive heart failure Acute renal failure UTI Status post ground fall Tobacco dependency Morbid obesity Homeless PLAN OF CARE tele hold steroids for now, given acute renal failure, no wheezing, s/p loading dose of steroids in ED closely monitor resp status and oxygenation O2 titrate to keep sat above 92% pulm toilet with Atrovent ATC and Xopenex PRN Venous Duplex BLE -NGT start empiric abx/ceftriaxone CXR 12/13 with equivocal mild interstitial congestion, unchanged , cardiomegaly UCX+ E coli ESBL, S to Macrobid no fevers, no leukocytosis, possibly colonization, I m cautious to start Macrobid given renal failure- per primary/nephro discretion ( discussed with primary ) ceftriaxone was prior dc declined Nicotine patch on a/c rate control- per cardio recs: on BB, Cardizem and Digoxin monitor volumes ECHO with pEF no evidence of WMA GI prophylaxis renal US noted monitor renal parameters, lytes avoid nephrotoxics as possible correct lytes as needed creat trending down discussion on weight loss if receptive - not at this time; anxious and wants to go home pain management anxiolytic prn SW consult for placement case discussed and evaluated by supervising physician ivy mccarty for a consult! Igor Carpio MD 12/16/19 1153: Subjective Allergies: Coded Allergies: ERYTHROMYCIN BASE (Verified Allergy, Severe, 12/12/19) HALOPERIDOL (Verified Allergy, Unknown, 12/12/19) VANCOMYCIN (Unverified Adverse Reaction, Intermediate, Shortness of Breath , 12/12/19) Assessment/Plan Assessment/Plan Patient seen and examined with SENIOR CLINICAL PROJECT MANAGER. Agree with above A&P as it reflects our joint deliberations. Luz Bowen NP Dec 16, 2019 09:01 Igor Carpio MD Dec 16, 2019 11:53
--- NOTE | 2019-12-16 09:30 | NUR ---
NURSE NOTES: Held all PO meds, pt still vomiting dark brown fluid. Dr Dumont made aware. Per MD, he will come today to check the pt and will change the orders for PO med.
[2019-12-16 09:38] LABS: BASOPHILS % (AUTO) 1.5 % (0.0-2.0); HEMATOCRIT 33.5 % (37.0-47.0); HEMOGLOBIN 10.4 G/DL (12.0-16.0); MEAN CORPUSCULAR VOLUME 86 FL (80-99); MONOCYTES % (AUTO) 6.5 % (1.0-10.0); PLATELET COUNT 213 K/UL (150-450); RED BLOOD COUNT 3.89 M/UL (4.20-5.40); RED CELL DISTRIBUTION WIDTH 16.2 % (11.6-14.8); WHITE BLOOD COUNT 10.2 K/UL (4.8-10.8)
[2019-12-16] MEDS: Pantoprazole Inj IVP SCH ×2 (09:41→20:55)
[2019-12-16] MEDS: LORazepam Inj 2mg/ml 1ml IVP PRN ×2 (11:20→23:04)
[2019-12-16 12:24] LABS: ANION GAP 12 mmol/L (5-15); BLOOD UREA NITROGEN 49 mg/dL (7-18); CALCIUM 9.4 MG/DL (8.5-10.1); CARBON DIOXIDE 29 MMOL/L (21-32); CHLORIDE 104 MMOL/L (98-107); POTASSIUM 5.2 MMOL/L (3.5-5.1); SODIUM 145 MMOL/L (136-145)
--- NOTE | 2019-12-16 13:30 | NUR ---
NURSE NOTES: Dr Meek made aware that HR is on 170s. Reported that pt already received 2 doses of digoxin in AM. Received a new order to administer another dose of 0.25mg. After pt received the dose, reported to MD that HR went to 117, and back to up and down between 120s-170s. Per MD, give an update around 1600.
--- NOTE | 2019-12-16 13:42 | Nephrology Progress Note ---
Assessment/Plan Status: stable Assessment/Plan: A/P A/P 1) NATALIE on CKD 3B - Cr up to 3 - avoid nephrotoxins. - worsened overnight - CRS, AFib RVR - IVFs bolus, bladder scan and Renal US 2) Atrial fibrillation with rapid ventricular response - Congestive heart failure - mgmt per cardiology 3) UTI- Meropenen started 4) Post Mech Fall- CT head and knee xray negative. PSY to assist with sedation Subjective Date patient seen: Dec 16, 2019 Time patient seen: 13:39 ROS Limited/Unobtainable: Yes Allergies: Coded Allergies: ERYTHROMYCIN BASE (Verified Allergy, Severe, 12/12/19) HALOPERIDOL (Verified Allergy, Unknown, 12/12/19) VANCOMYCIN (Unverified Adverse Reaction, Intermediate, Shortness of Breath , 12/12/19) Subjective Patient very sedated Objective Last 24 Hour Vital Signs Date Time Temp Pulse Resp B/P (MAP) Pulse Ox O2 Delivery O2 Flow Rate FiO2 12/16/19 13:14 148 12/16/19 12:41 108 18 95 Nasal Cannula 2.0 28 98 20 97 12/16/19 12:00 119 12/16/19 12:00 96.7 153 20 138/99 (112) 96 12/16/19 11:50 148 20 138/99 97 12/16/19 11:20 144 20 138/99 96 12/16/19 09:42 155 12/16/19 09:00 Room Air 12/16/19 08:00 98.1 102 18 134/60 (84) 98 12/16/19 07:52 105 20 99 Nasal Cannula 2.0 28 95 18 98 12/16/19 07:48 119 12/16/19 07:36 144 12/16/19 06:00 150 115/62 12/16/19 04:00 139 12/16/19 04:00 98.5 124 18 110/65 (80) 98 12/16/19 02:32 135 112/61 12/16/19 00:36 92 22 109/70 96 12/16/19 00:06 92 20 124/78 98 12/16/19 00:00 126 12/16/19 00:00 98.6 82 18 121/92 (102) 98 12/16/19 00:00 115 109/61 12/15/19 21:11 100 138/81 12/15/19 21:00 Room Air 12/15/19 20:00 98.9 97 18 138/90 (106) 94 12/15/19 20:00 126 12/15/19 19:15 98.9 94 Room Air 12/15/19 17:26 75 163/81 12/15/19 17:05 75 20 163/81 99 12/15/19 16:37 75 20 163/81 99 12/15/19 16:00 152 12/15/19 16:00 98.2 109 20 178/84 (115) 97 12/15/19 13:54 75 20 99 Room Air 21 73 18 96 Intake and Output 12/15/19 12/16/19 19:00 07:00 Intake Total 1200 ml 800 ml Balance 1200 ml 800 ml Intake Oral 1200 ml 800 ml # Voids 2 # Bowel Movements 2 2 Laboratory Tests 12/16/19 09:28: White Blood Count 10.2, Red Blood Count 3.89L, Hemoglobin 10.4L, Hematocrit 33.5L, Mean Corpuscular Volume 86, Mean Corpuscular Hemoglobin 26.8L, Mean Corpuscular Hemoglobin Concent 31.2L, Red Cell Distribution Width 16.2H, Platelet Count 213, Mean Platelet Volume 6.8, Neutrophils (%) (Auto) 82.0H, Lymphocytes (%) (Auto) 10.0L, Monocytes (%) (Auto) 6.5, Eosinophils (%) (Auto) 0.0, Basophils (%) (Auto) 1.5, Sodium Level 145, Potassium Level 5.2H, Chloride Level 104, Carbon Dioxide Level 29, Anion Gap 12, Blood Urea Nitrogen 49H, Creatinine 3.0H, Estimat Glomerular Filtration Rate 15.6, Glucose Level 160H, Calcium Level 9.4 Height (Feet): 5 Height (Inches): 6.00 Weight (Pounds): 298 General Appearance: no apparent distress EENT: normal ENT inspection Neck: normal alignment Cardiovascular: regularly irregular, tachycardia Respiratory/Chest: lungs clear Edema: 1+ Arm (L), 1+ Arm (R), 1+ Leg (L), 1+ Leg (R), 1+ Pedal (L), 1+ Pedal ( R), 1+ Generalized Poli Grnat MD Dec 16, 2019 13:42
--- NOTE | 2019-12-16 14:33 | NUR ---
PT Note Patient's HR is elevated. Will hold physical therapy today; will check again in AM.
[2019-12-16] MEDS ORDERED: Tubing IV Secondary IV ONE (14:54)
[2019-12-16] MEDS ORDERED: NS 275ml ONE (14:54)
--- NOTE | 2019-12-16 15:22 | NUR ---
INSURANCE LATE ENTRY 12/15/19 PAYAM PH: NEL FARAH [phone] CLINICALS: [phone] [facility] PENDING Addendum: 12/14/19 at 1502 by Hannah Hill [id number]
--- NOTE | 2019-12-16 15:35 | NUR ---
NURSE NOTES: Post void residual 9ml. No need to call MD, per MD's order.
[2019-12-16] MEDS: Meropenem 500mg in NS 55ml IVPB SCH (16:16)
--- NOTE | 2019-12-16 16:48 | NUR ---
NURSE NOTES: Updated Dr Meek regarding pt's HR. Per MD, administer another 0.25mg digoxin IVP. MD aware that this will be the 4th dose for the day.
--- NOTE | 2019-12-16 17:47 | NUR ---
NURSE NOTES: Held 1800 PO meds. Pt unable to follow simple commands (such as swallow). Pt at high risk for aspiration.
--- NOTE | 2019-12-16 18:06 | Diagnostic Imaging Report ---
EXAM: US Retroperitoneal Complete, Renal CLINICAL HISTORY: RENAL-A TECHNIQUE: Real-time complete ultrasound of the retroperitoneum with image documentation. COMPARISON: 12/13/2019 FINDINGS: Right kidney: The right kidney measures 8.6 x 5.0 x 5.7 cm. Cortical thinning. No hydronephrosis. Few nonobstructing stones measuring up to 9 mm in the lower pole. Left kidney: The left kidney measures 11.4 x 5.1 x 5.8 cm. Mild cortical thinning. No hydronephrosis. Multiple nonobstructing stones measuring up to 8 mm in the lower pole. Bladder: Suboptimally visualized secondary to patient movement. IMPRESSION: 1. Nonobstructing nephrolithiasis bilaterally. No hydronephrosis. 2. Cortical atrophy right greater than left.
--- NOTE | 2019-12-16 19:20 | NUR ---
NURSE HAND-OFF REPORT: Important Events on Shift: Pt was vomiting dark brown fluid in AM. Dr Victoria was added on the case. Dr Dumont made aware that PO meds were hold in AM r/t vomiting, per MD he will come to update orders. Dr Meek aware of high HR. Pt received total of 4 doses of 0.25mg digoxin IVP. Patient Status: Diet: No added salt Pending Orders: Pending Results/Labs: Pending MD notification: Latest Vital Signs: Temperature 97.1 , Pulse 145 , B/P 130 /65 , Respiratory Rate 20 , O2 SAT 96 , Room Air, O2 Flow Rate . Vital Sign Comment: EKG Rhythm: Atrial Fibrillation Rhythm change?: N MD Notified?: Y -MD Gaviota UNDERWOOD Response: Latest Abreu Fall Score: 85 Fall Risk: High Risk Safety Measures: Call light Within Reach, Bed Alarm Zone 1, Side Rails Side Rails x3, Bed position Low and Locked. Fall Precautions: Yellow Socks Yellow Gown Door Sign Patient Fall Education Report given to NOEL Swenson.
--- NOTE | 2019-12-16 19:25 | NUR ---
NURSE NOTES: Received report from NOEL Andino. Patient is awake, confused and restless, alert and oriented x 2. monitoring and evaluation advisor is in place, shows afib on HR of 130-140's. On regular, no added salt. With oxygen @ 2lpm via nasal cannula. On fall, aspiration and seizure precaution, padded side rails, sitter "Don" at bedside. IV site is on right wrist g-22 saline lock that is patent and intact. Safety measures are in place, bed in lowest and locked position, side rails up x 3. Bed alarm is on zone 2. Will continue plan of care.
--- NOTE | 2019-12-16 23:34 | Psych Consult Progress Note ---
Psychiatry Progress Note Psychiatry Progress Note Subjective the pt is delusional and irritable more agitated today low energy Medications Current Medications Medications (Trade) Dose Ordered Sig/Shiraz Route PRN Reason Start Time Stop Time Status Last Admin Dose Admin Acetaminophen (Tylenol) 650 mg Q4H PRN ORAL Mild Pain (Pain Scale 1-3) 12/12/19 22:15 01/11/20 22:14 12/15/19 21:13 Acetaminophen (Tylenol) 650 mg Q4H PRN ORAL Temp >100.5 12/12/19 22:15 01/11/20 22:14 Apixaban (Eliquis) 5 mg BID ORAL 12/13/19 18:00 03/12/20 17:59 12/15/19 17:31 Aspirin (ASA) 81 mg DAILY ORAL 12/13/19 09:00 01/27/20 08:59 12/15/19 08:40 Bacitracin (Bacitracin 15gm tube) 1 applic BID TOPIC 12/13/19 09:00 03/12/20 08:59 12/16/19 18:26 Clotrimazole (Lotrimin) 1 applic TWICE A DAY TOPIC 12/13/19 09:00 03/12/20 08:59 12/16/19 18:26 Dextrose (Dextrose 50%) 25 ml Q30M PRN IV Hypoglycemia 12/12/19 22:15 03/11/20 22:14 Dextrose (Dextrose 50%) 50 ml Q30M PRN IV Hypoglycemia 12/12/19 22:15 03/11/20 22:14 Digoxin (Lanoxin) 0.125 mg DAILY ORAL 12/16/19 09:00 03/15/20 08:59 Diltiazem HCl (Cardizem Tab) 90 mg Q6HR ORAL 12/14/19 12:00 01/13/20 11:59 12/16/19 06:00 Diphenhydramine HCl (Benadryl) 50 mg Q6H PRN IVP Itching 12/15/19 23:30 01/14/20 23:29 12/16/19 00:06 Divalproex Sodium (Depakote) 500 mg BID ORAL 12/12/19 23:00 01/11/20 22:59 12/15/19 17:25 Docusate Sodium (Colace) 200 mg TWICE A DAY ORAL 12/13/19 09:00 01/12/20 08:59 12/15/19 17:31 Famotidine (Pepcid) 10 mg DAILY ORAL 12/13/19 09:00 03/12/20 08:59 12/15/19 08:40 Ipratropium [place] (Atrovent) 500 mcg TIDRT HHN 12/12/19 22:15 12/17/19 22:14 12/16/19 19:40 Levalbuterol HCl (Xopenex) 1.25 mg TIDPRN PRN HHN sob 12/14/19 12:30 12/19/19 12:29 Lorazepam (Ativan 2mg/ml 1ml) 2 mg Q4H PRN IVP For Anxiety 12/16/19 05:09 12/22/19 05:08 12/16/19 23:04 Magnesium Hydroxide (Mom) 30 ml HSPRN PRN ORAL Constipation 12/12/19 22:15 01/11/20 22:14 Meropenem 500 mg/ Sodium Chloride 55 ml @ 110 mls/hr Q12H IVPB 12/16/19 16:00 12/21/19 15:59 12/16/19 16:16 Metoprolol Tartrate (Lopressor) 25 mg Q12HR ORAL 12/13/19 21:00 03/12/20 20:59 12/16/19 20:55 Nitroglycerin (Ntg) 0.4 mg Q5M PRN SL Prn Chest Pain 12/12/19 22:15 01/11/20 22:14 Ondansetron HCl (Zofran) 4 mg Q6H PRN IVP Nausea & Vomiting 12/12/19 22:15 01/11/20 22:14 12/13/19 02:56 Pantoprazole (Protonix) 40 mg EVERY 12 HOURS IVP 12/16/19 09:00 01/15/20 08:59 12/16/19 20:55 Risperidone (RisperDAL) 4 mg QHS ORAL 12/16/19 21:00 01/30/20 20:59 12/16/19 20:55 Neurological/Psychiatric: Reports: anxiety, depressed, emotional problems Allergies: Coded Allergies: ERYTHROMYCIN BASE (Verified Allergy, Severe, 12/12/19) HALOPERIDOL (Verified Allergy, Unknown, 12/12/19) VANCOMYCIN (Unverified Adverse Reaction, Intermediate, Shortness of Breath , 12/12/19) Objective Data Height (Feet): 5 Height (Inches): 6.00 Weight (Pounds): 298 General Appearance: no apparent distress Additional Comments: Alert and oriented times self, place. Mood is agitated. Affect is flat. Thought process, there is a paucity of thought content. Thought content, no suicidal or homicidal ideation. Cognition is impaired. Insight and judgment is impaired. Assessment/Plan Harris I: ASSESSMENT: Harris I Schizophrenia. Harris II Deferred. Harris III Recently diagnosed with COVID-19. Harris IV Homelessness. Harris V 55 PLAN: 1. Start the patient on risperidone. 2. Depakote. 3. Discussed with Dr. Dumont. Status: stable Status Narrative ASSESSMENT: Harris I Schizophrenia. Harris II Deferred. Harris III Recently diagnosed with COVID-19. Harris IV Homelessness. Harris V 55 PLAN: 1. Start the patient on risperidone. 2. Depakote. 3. Discussed with Dr. Dumont. Assessment/Plan: ASSESSMENT: Harris I Schizophrenia. Harris II Deferred. Harris III Recently diagnosed with COVID-19. Harris IV Homelessness. Harris V 55 PLAN: 1. risperidone 4mg 2. Depakote. 3. Discussed with Dr. Dumont. Harris Ballesteros MD Dec 16, 2019 23:34
[2019-12-17] VITALS (7 sets, daily range): BP systolic 111–154; BP diastolic 61–81
[2019-12-17] MEDS: dilTIAZem HCl 90mg tab ORAL SCH ×4 (00:08→18:15)
[2019-12-17] MEDS: Meropenem 500mg in NS 55ml IVPB SCH ×2 (04:07→15:58)
[2019-12-17] MEDS: LORazepam Inj 2mg/ml 1ml IVP PRN (04:13)
--- NOTE | 2019-12-17 07:23 | NUR ---
NURSE NOTES: Received report from Aster/RN. Patient in bed in semi-walden position, with bilateral wrist soft restrains placed and with sitter at bedside for safety precautions. On 3L nasal cannula, no SOB noted at this time. IV on right wrist 22G SL, patent and clean. Bed in lowest position and locked. Call light within reach. Side rails up X3. Will continue plan of care.
[2019-12-17 07:32] LABS: HEMATOCRIT 31.4 % (37.0-47.0); HEMOGLOBIN 9.9 G/DL (12.0-16.0); MEAN CORPUSCULAR VOLUME 88 FL (80-99); PLATELET COUNT 205 K/UL (150-450); RED BLOOD COUNT 3.58 M/UL (4.20-5.40); RED CELL DISTRIBUTION WIDTH 16.9 % (11.6-14.8); WHITE BLOOD COUNT 13.8 K/UL (4.8-10.8)
--- NOTE | 2019-12-17 07:34 | NUR ---
NURSE HAND-OFF REPORT: Important Events on Shift: Patient is still restless Patient Status: Patient is awake, non compliant and still agitated Diet: regular, low sodium diet Pending Orders: none Pending Results/Labs: none Pending MD notification: none Latest Vital Signs: Temperature 100.4 , Pulse 105 , B/P 139 /61 , Respiratory Rate 24 , O2 SAT 95 , Nasal Cannula, O2 Flow Rate 2.0 . Vital Sign Comment: EKG Rhythm: Atrial Fibrillation Rhythm change?: N MD Notified?: Y -MD Gaviota UNDERWOOD Response: Latest Abreu Fall Score: 95 Fall Risk: High Risk Safety Measures: Call light Within Reach, Bed Alarm Zone 2, Side Rails Side Rails x3, Bed position Low and Locked. Fall Precautions: Yellow Socks Yellow Gown Door Sign Patient Fall Education Report given to NOEL Salazar.
[2019-12-17] MEDS: Ipratropium 0.02% Inh Soln 2.5ml UD HHN SCH ×3 (07:36→19:23)
[2019-12-17 07:53] LABS: ANION GAP 10 mmol/L (5-15); BLOOD UREA NITROGEN 68 mg/dL (7-18); CALCIUM 9.5 MG/DL (8.5-10.1); CARBON DIOXIDE 28 MMOL/L (21-32); CHLORIDE 108 MMOL/L (98-107); CREATININE 4.1 MG/DL (0.55-1.30); POTASSIUM 5.8 MMOL/L (3.5-5.1); SODIUM 145 MMOL/L (136-145)
--- NOTE | 2019-12-17 09:34 | Pulmonology Progress Note ---
Luz Bowen FUR TINTER 12/17/19 0934: Subjective ROS Limited/Unobtainable: Yes Allergies: Coded Allergies: ERYTHROMYCIN BASE (Verified Allergy, Severe, 12/12/19) HALOPERIDOL (Verified Allergy, Unknown, 12/12/19) VANCOMYCIN (Unverified Adverse Reaction, Intermediate, Shortness of Breath , 12/12/19) Subjective found on the floor 12/15, am, apparently got out from her bed denied head injury or any pain now with R knee swollen and large hematoma on O2 via NC, pulse ox stable leuk this am , low grade fever earlier this am creat rising to 4.1 this am Objective Last 24 Hour Vital Signs Date Time Temp Pulse Resp B/P (MAP) Pulse Ox O2 Delivery O2 Flow Rate FiO2 12/17/19 08:00 98.9 111 22 125/68 (87) 95 12/17/19 07:28 78 18 99 Nasal Cannula 2.0 28 76 20 97 12/17/19 07:28 97 Nasal Cannula 2.0 28 12/17/19 06:31 105 139/61 12/17/19 04:43 105 24 139/61 95 12/17/19 04:43 100.4 12/17/19 04:13 110 24 139/71 95 12/17/19 04:00 100.8 110 26 139/61 (87) 95 12/17/19 04:00 110 12/17/19 01:45 100.0 131 26 149/81 (103) 95 12/17/19 00:08 124 154/77 12/17/19 00:00 100.5 129 25 154/77 (102) 96 12/17/19 00:00 134 12/16/19 23:04 129 27 141/85 95 12/16/19 21:45 98.1 135 24 141/69 (93) 96 12/16/19 21:00 Nasal Cannula 2.0 12/16/19 20:55 101 144/67 12/16/19 20:00 140 12/16/19 20:00 97.9 121 26 146/67 (93) 98 12/16/19 19:54 125 22 98 Nasal Cannula 2.0 28 12/16/19 19:44 123 22 96 Nasal Cannula 2.0 28 12/16/19 19:43 96 Nasal Cannula 2.0 28 12/16/19 17:45 97.1 145 20 130/65 (86) 96 12/16/19 17:32 187 12/16/19 16:00 96.8 160 20 129/87 (101) 96 12/16/19 15:14 131 12/16/19 13:45 98.1 158 20 142/74 (96) 98 12/16/19 13:14 148 12/16/19 12:41 108 18 95 Nasal Cannula 2.0 28 98 20 97 12/16/19 12:00 119 12/16/19 12:00 96.7 153 20 138/99 (112) 96 12/16/19 11:20 144 20 138/99 96 12/16/19 09:45 98.1 144 20 135/68 (90) 98 12/16/19 09:42 155 Intake and Output 12/16/19 12/17/19 19:00 07:00 Intake Total 240 ml Balance 240 ml Intake Oral 240 ml # Voids 3 2 Objective General Appearance: morbidly obese somewhat anxious female in NAD Lines, tubes and drains: peripheral HEENT: normocephalic, atraumatic, anicteric, mucous membranes moist Neck: non-tender Respiratory/Chest: chest wall non-tender, no accessory muscle use, decreased breath sounds Cardiovascular/Chest: irregularly irregular - A fib , rate overall controlled now , distant heart sounds Abdomen: normal bowel sounds, non tender , obese, soft Extremities: no calf tenderness, moderate edema - +2 BLE, R knee with large hematoma, edema, warm to touch Skin Exam: warm/dry, multiple tattoos Neurologic: abnormal gait - w/chair bound , alert, responsive, anxious Musculoskeletal: normal muscle bulk Laboratory Tests 12/17/19 07:09: White Blood Count 13.8H, Red Blood Count 3.58L, Hemoglobin 9.9L, Hematocrit 31.4L, Mean Corpuscular Volume 88, Mean Corpuscular Hemoglobin 27.6, Mean Corpuscular Hemoglobin Concent 31.4L, Red Cell Distribution Width 16.9H, Platelet Count 205, Mean Platelet Volume 6.7, Neutrophils (%) (Auto) , Lymphocytes (%) (Auto) , Monocytes (%) (Auto) , Eosinophils (%) (Auto) , Basophils (%) (Auto) , Neutrophils % (Manual) [Pending], Lymphocytes % (Manual) [Pending], Platelet Estimate [Pending], Platelet Morphology [Pending], Sodium Level 145, Potassium Level 5.8H, Chloride Level 108H, Carbon Dioxide Level 28, Anion Gap 10, Blood Urea Nitrogen 68H, Creatinine 4.1H, Estimat Glomerular Filtration Rate 10.8, Glucose Level 194H, Calcium Level 9.5 Current Medications Medications (Trade) Dose Ordered Sig/Shiraz Route PRN Reason Start Time Stop Time Status Last Admin Dose Admin Acetaminophen (Tylenol) 650 mg Q4H PRN ORAL Mild Pain (Pain Scale 1-3) 12/12/19 22:15 01/11/20 22:14 12/15/19 21:13 Acetaminophen (Tylenol) 650 mg Q4H PRN ORAL Temp >100.5 12/12/19 22:15 01/11/20 22:14 12/17/19 04:13 Apixaban (Eliquis) 5 mg BID ORAL 12/13/19 18:00 03/12/20 17:59 12/15/19 17:31 Aspirin (ASA) 81 mg DAILY ORAL 12/13/19 09:00 01/27/20 08:59 12/15/19 08:40 Bacitracin (Bacitracin 15gm tube) 1 applic BID TOPIC 12/13/19 09:00 03/12/20 08:59 12/16/19 18:26 Clotrimazole (Lotrimin) 1 applic TWICE A DAY TOPIC 12/13/19 09:00 03/12/20 08:59 12/16/19 18:26 Dextrose (Dextrose 50%) 25 ml Q30M PRN IV Hypoglycemia 12/12/19 22:15 03/11/20 22:14 Dextrose (Dextrose 50%) 50 ml Q30M PRN IV Hypoglycemia 12/12/19 22:15 03/11/20 22:14 Digoxin (Lanoxin) 0.125 mg DAILY ORAL 12/16/19 09:00 03/15/20 08:59 Diltiazem HCl (Cardizem Tab) 90 mg Q6HR ORAL 12/14/19 12:00 01/13/20 11:59 12/17/19 06:31 Diphenhydramine HCl (Benadryl) 50 mg Q6H PRN IVP Itching 12/15/19 23:30 01/14/20 23:29 12/16/19 00:06 Divalproex Sodium (Depakote) 500 mg BID ORAL 12/12/19 23:00 01/11/20 22:59 12/15/19 17:25 Docusate Sodium (Colace) 200 mg TWICE A DAY ORAL 12/13/19 09:00 01/12/20 08:59 12/15/19 17:31 Famotidine (Pepcid) 10 mg DAILY ORAL 12/13/19 09:00 03/12/20 08:59 12/15/19 08:40 Ipratropium [place] (Atrovent) 500 mcg TIDRT HHN 12/12/19 22:15 12/17/19 22:14 12/17/19 07:36 Levalbuterol HCl (Xopenex) 1.25 mg TIDPRN PRN HHN sob 12/14/19 12:30 12/19/19 12:29 Lorazepam (Ativan 2mg/ml 1ml) 2 mg Q4H PRN IVP For Anxiety 12/16/19 05:09 12/22/19 05:08 12/17/19 04:13 Magnesium Hydroxide (Mom) 30 ml HSPRN PRN ORAL Constipation 12/12/19 22:15 01/11/20 22:14 Meropenem 500 mg/ Sodium Chloride 55 ml @ 110 mls/hr Q12H IVPB 12/16/19 16:00 12/21/19 15:59 12/17/19 04:07 Metoprolol Tartrate (Lopressor) 25 mg Q12HR ORAL 12/13/19 21:00 03/12/20 20:59 12/16/19 20:55 Nitroglycerin (Ntg) 0.4 mg Q5M PRN SL Prn Chest Pain 12/12/19 22:15 01/11/20 22:14 Ondansetron HCl (Zofran) 4 mg Q6H PRN IVP Nausea & Vomiting 12/12/19 22:15 01/11/20 22:14 12/13/19 02:56 Pantoprazole (Protonix) 40 mg EVERY 12 HOURS IVP 12/16/19 09:00 01/15/20 08:59 12/16/19 20:55 Risperidone (RisperDAL) 4 mg QHS ORAL 12/16/19 21:00 01/30/20 20:59 12/16/19 20:55 Assessment/Plan Assessment/Plan ASSESSMENT COPD Bronchospasm Atrial fibrillation with rapid ventricular response Congestive heart failure Acute renal failure on CKD UTI with E coli ESBL Status post ground fall Tobacco dependency Morbid obesity Homeless R knee edema and hematoma, likely sprain PLAN OF CARE tele hold steroids for now, given acute renal failure, no wheezing, s/p loading dose of steroids in ED closely monitor resp status and oxygenation O2 titrate to keep sat above 92% pulm toilet with Atrovent ATC and Xopenex PRN Venous Duplex BLE -NGT CXR 12/13 with equivocal mild interstitial congestion, unchanged , cardiomegaly UCX+ E coli ESBL, S to Macrobid started on meropenem as per ID this am leukocytosis, fever earlier get CXR also get X ray R knee given fall 12/15 , large hematoma, swelling ice R knee and elevate CT head no acute IC pathology fall precautions declined Nicotine patch on a/c rate control- per cardio recs: on BB, Cardizem and Digoxin monitor volumes ECHO with pEF no evidence of WMA GI prophylaxis renal US no hydro, BL nonobstructive stones monitor renal parameters, lytes , creat trending up, K up- per nephro management, avoid nephrotoxics as possible may need HD discussion on weight loss if receptive - not at this time; anxious and wants to go home pain management anxiolytic prn SW consult for placement case discussed and evaluated by supervising physician ivy mccarty for a consult! Igor Carpio MD 12/17/19 1903: Subjective Allergies: Coded Allergies: ERYTHROMYCIN BASE (Verified Allergy, Severe, 12/12/19) HALOPERIDOL (Verified Allergy, Unknown, 12/12/19) VANCOMYCIN (Unverified Adverse Reaction, Intermediate, Shortness of Breath , 12/12/19) Assessment/Plan Assessment/Plan Patient seen and examined with FUR TINTER. Agree with above A&P as it reflects our joint deliberations. Luz Bowen NP Dec 17, 2019 09:34 Igor Carpio MD Dec 17, 2019 19:03
[2019-12-17] MEDS: Pantoprazole Inj IVP SCH (09:39)
[2019-12-17] MEDS: Depakote 500mg tab ORAL SCH ×2 (09:39→18:15)
[2019-12-17] MEDS: Aspirin Baby 81mg ORAL SCH (09:40)
[2019-12-17] MEDS: Digoxin 0.125mg tab ORAL SCH (09:40)
[2019-12-17] MEDS: Eliquis 5mg tablet ORAL SCH ×2 (09:41→18:00)
[2019-12-17] MEDS: Docusate 100mg cap ORAL SCH ×2 (09:41→18:15)
[2019-12-17] MEDS: Bacitracin Oint 15gm Tube TOPIC SCH ×2 (09:47→18:16)
--- NOTE | 2019-12-17 10:17 | Diagnostic Imaging Report ---
EXAM: XR Chest, 1 View CLINICAL HISTORY: SOB TECHNIQUE: Frontal view of the chest. COMPARISON: Chest radiograph December 14, 2019 FINDINGS/IMPRESSION: Small bilateral pleural effusions, left greater than right. Overall, minimal improvement in the degree of vascular condition when compared to December 14, 2019. Moderate vascular congestion. No pneumothorax. Cardiomegaly. Calcified aorta.
--- NOTE | 2019-12-17 10:24 | Diagnostic Imaging Report ---
EXAM: XR Right Knee, 3 Views CLINICAL HISTORY: PAIN TECHNIQUE: Three views of the right knee. COMPARISON: No relevant prior studies available. FINDINGS/IMPRESSION: No acute fracture or dislocation. Mild-moderate joint space narrowing of the medial compartment. Moderate joint space narrowing of the patellofemoral compartment. Tricompartmental osteophytic spurring. Severe osseous demineralization. Calcification adjacent to the proximal, superficial MCL, may represent a small Mendy-Stieda lesion.
--- NOTE | 2019-12-17 10:46 | General Progress Note ---
Assessment/Plan Problem List: (1) CKD (chronic kidney disease) stage 3, GFR 30-59 ml/min ICD Codes: N18.3 - Chronic kidney disease, stage 3 (moderate) SNOMED: 312208109 (2) COPD (chronic obstructive pulmonary disease) ICD Codes: J44.9 - Chronic obstructive pulmonary disease, unspecified SNOMED: 55720107 (3) Smoker ICD Codes: F17.200 - Nicotine dependence, unspecified, uncomplicated SNOMED: 23803957 (4) GERD (gastroesophageal reflux disease) ICD Codes: K21.9 - Gastro-esophageal reflux disease without esophagitis SNOMED: 321787351 (5) Atrial fibrillation with RVR ICD Codes: I48.91 - Unspecified atrial fibrillation SNOMED: 757456284763265 Status: stable Assessment/Plan: ? hematemesis ppi bid fu H&H monitor labs speech eval may need EGD Subjective ROS Limited/Unobtainable: No Allergies: Coded Allergies: ERYTHROMYCIN BASE (Verified Allergy, Severe, 12/12/19) HALOPERIDOL (Verified Allergy, Unknown, 12/12/19) VANCOMYCIN (Unverified Adverse Reaction, Intermediate, Shortness of Breath , 12/12/19) Objective Last 24 Hour Vital Signs Date Time Temp Pulse Resp B/P (MAP) Pulse Ox O2 Delivery O2 Flow Rate FiO2 12/17/19 09:40 111 12/17/19 09:40 111 125/68 12/17/19 08:00 98.9 111 22 125/68 (87) 95 12/17/19 08:00 111 12/17/19 07:28 78 18 99 Nasal Cannula 2.0 28 76 20 97 12/17/19 07:28 97 Nasal Cannula 2.0 28 12/17/19 06:31 105 139/61 12/17/19 04:43 105 24 139/61 95 12/17/19 04:43 100.4 12/17/19 04:13 110 24 139/71 95 12/17/19 04:00 100.8 110 26 139/61 (87) 95 12/17/19 04:00 110 12/17/19 01:45 100.0 131 26 149/81 (103) 95 12/17/19 00:08 124 154/77 12/17/19 00:00 100.5 129 25 154/77 (102) 96 9/7/20 00:00 134 12/16/19 23:04 129 27 141/85 95 12/16/19 21:45 98.1 135 24 141/69 (93) 96 12/16/19 21:00 Nasal Cannula 2.0 12/16/19 20:55 101 144/67 12/16/19 20:00 140 12/16/19 20:00 97.9 121 26 146/67 (93) 98 12/16/19 19:54 125 22 98 Nasal Cannula 2.0 28 12/16/19 19:44 123 22 96 Nasal Cannula 2.0 28 12/16/19 19:43 96 Nasal Cannula 2.0 28 12/16/19 17:45 97.1 145 20 130/65 (86) 96 12/16/19 17:32 187 12/16/19 16:00 96.8 160 20 129/87 (101) 96 12/16/19 15:14 131 12/16/19 13:45 98.1 158 20 142/74 (96) 98 12/16/19 13:14 148 12/16/19 12:41 108 18 95 Nasal Cannula 2.0 28 98 20 97 12/16/19 12:00 119 12/16/19 12:00 96.7 153 20 138/99 (112) 96 12/16/19 11:20 144 20 138/99 96 Intake and Output 12/16/19 12/17/19 19:00 07:00 Intake Total 240 ml Balance 240 ml Intake Oral 240 ml # Voids 3 2 Laboratory Tests 12/17/19 07:09: White Blood Count 13.8H, Red Blood Count 3.58L, Hemoglobin 9.9L, Hematocrit 31.4L, Mean Corpuscular Volume 88, Mean Corpuscular Hemoglobin 27.6, Mean Corpuscular Hemoglobin Concent 31.4L, Red Cell Distribution Width 16.9H, Platelet Count 205, Mean Platelet Volume 6.7, Neutrophils (%) (Auto) , Lymphocytes (%) (Auto) , Monocytes (%) (Auto) , Eosinophils (%) (Auto) , Basophils (%) (Auto) , Neutrophils % (Manual) [Pending], Lymphocytes % (Manual) [Pending], Platelet Estimate [Pending], Platelet Morphology [Pending], Sodium Level 145, Potassium Level 5.8H, Chloride Level 108H, Carbon Dioxide Level 28, Anion Gap 10, Blood Urea Nitrogen 68H, Creatinine 4.1H, Estimat Glomerular Filtration Rate 10.8, Glucose Level 194H, Calcium Level 9.5 Height (Feet): 5 Height (Inches): 6.00 Weight (Pounds): 298 General Appearance: alert EENT: normal ENT inspection Neck: supple Cardiovascular: normal rate Respiratory/Chest: decreased breath sounds Abdomen: normal bowel sounds, non tender, soft Extremities: non-tender Mervin Victoria MD Dec 17, 2019 10:46
--- NOTE | 2019-12-17 11:02 | NUR ---
NURSE NOTES: call placed to Dr Dumont regarding order for sitter. Message left on voice mail.
[2019-12-17] MEDS ORDERED: Varibar Pudding 230ml MC PRN (14:00)
[2019-12-17] MEDS ORDERED: Varibar Thin Liquid powder 148gm MC PRN (14:00)
[2019-12-17] MEDS ORDERED: Varibar Nectar 240ml MC PRN (14:00)
[2019-12-17] MEDS ORDERED: Varibar Honey 250ml MC PRN (14:00)
--- NOTE | 2019-12-17 15:08 | Infectious Diseases Prog Note ---
Assessment/Plan Assessment/Plan Full consult dictated: A) 1) esbl e.coli uti, sepsis, fevers, leukocytosis, arf 2) pmh noted 3) allergies - vancomycin P) 1) meropenem 2) f/u on cultures, labs and chest x-ray 3) will f/u 4) thank you Subjective Allergies: Coded Allergies: ERYTHROMYCIN BASE (Verified Allergy, Severe, 12/12/19) HALOPERIDOL (Verified Allergy, Unknown, 12/12/19) VANCOMYCIN (Unverified Adverse Reaction, Intermediate, Shortness of Breath , 12/12/19) Objective Last 24 Hour Vital Signs Date Time Temp Pulse Resp B/P (MAP) Pulse Ox O2 Delivery O2 Flow Rate FiO2 12/17/19 12:35 102 117/67 12/17/19 12:00 116 12/17/19 12:00 99.1 102 20 111/67 (82) 96 12/17/19 09:40 111 12/17/19 09:40 111 125/68 12/17/19 09:00 Nasal Cannula 2.0 12/17/19 08:00 98.9 111 22 125/68 (87) 95 12/17/19 08:00 111 12/17/19 07:28 78 18 99 Nasal Cannula 2.0 28 76 20 97 12/17/19 07:28 97 Nasal Cannula 2.0 28 12/17/19 06:31 105 139/61 12/17/19 04:43 105 24 139/61 95 12/17/19 04:43 100.4 12/17/19 04:13 110 24 139/71 95 12/17/19 04:00 100.8 110 26 139/61 (87) 95 12/17/19 04:00 110 12/17/19 01:45 100.0 131 26 149/81 (103) 95 12/17/19 00:08 124 154/77 12/17/19 00:00 100.5 129 25 154/77 (102) 96 12/17/19 00:00 134 12/16/19 23:04 129 27 141/85 95 12/16/19 21:45 98.1 135 24 141/69 (93) 96 12/16/19 21:00 Nasal Cannula 2.0 12/16/19 20:55 101 144/67 12/16/19 20:00 140 12/16/19 20:00 97.9 121 26 146/67 (93) 98 12/16/19 19:54 125 22 98 Nasal Cannula 2.0 28 12/16/19 19:44 123 22 96 Nasal Cannula 2.0 28 12/16/19 19:43 96 Nasal Cannula 2.0 28 12/16/19 17:45 97.1 145 20 130/65 (86) 96 12/16/19 17:32 187 12/16/19 16:00 96.8 160 20 129/87 (101) 96 12/16/19 15:14 131 Height (Feet): 5 Height (Inches): 6.00 Weight (Pounds): 298 Laboratory Tests Test 12/17/19 07:09 White Blood Count 13.8 K/UL (4.8-10.8) H Red Blood Count 3.58 M/UL (4.20-5.40) L Hemoglobin 9.9 G/DL (12.0-16.0) L Hematocrit 31.4 % (37.0-47.0) L Mean Corpuscular Volume 88 FL (80-99) Mean Corpuscular Hemoglobin 27.6 PG (27.0-31.0) Mean Corpuscular Hemoglobin Concent 31.4 G/DL (32.0-36.0) L Red Cell Distribution Width 16.9 % (11.6-14.8) H Platelet Count 205 K/UL (150-450) Mean Platelet Volume 6.7 FL (6.5-10.1) Neutrophils (%) (Auto) % (45.0-75.0) Lymphocytes (%) (Auto) % (20.0-45.0) Monocytes (%) (Auto) % (1.0-10.0) Eosinophils (%) (Auto) % (0.0-3.0) Basophils (%) (Auto) % (0.0-2.0) Differential Total Cells Counted 100 Neutrophils % (Manual) 88 % (45-75) H Lymphocytes % (Manual) 7 % (20-45) L Monocytes % (Manual) 4 % (1-10) Eosinophils % (Manual) 0 % (0-3) Basophils % (Manual) 0 % (0-2) Band Neutrophils 1 % (0-8) Platelet Estimate Adequate Platelet Morphology Normal Hypochromasia 2+ Anisocytosis 1+ Sodium Level 145 MMOL/L (136-145) Potassium Level 5.8 MMOL/L (3.5-5.1) H Chloride Level 108 MMOL/L (98-107) H Carbon Dioxide Level 28 MMOL/L (21-32) Anion Gap 10 mmol/L (5-15) Blood Urea Nitrogen 68 mg/dL (7-18) H Creatinine 4.1 MG/DL (0.55-1.30) H Estimat Glomerular Filtration Rate 10.8 mL/min (>60) Glucose Level 194 MG/DL (74-106) H Calcium Level 9.5 MG/DL (8.5-10.1) Current Medications Medications (Trade) Dose Ordered Sig/Shiraz Route PRN Reason Start Time Stop Time Status Last Admin Dose Admin Acetaminophen (Tylenol) 650 mg Q4H PRN ORAL Mild Pain (Pain Scale 1-3) 12/12/19 22:15 01/11/20 22:14 12/15/19 21:13 Acetaminophen (Tylenol) 650 mg Q4H PRN ORAL Temp >100.5 12/12/19 22:15 01/11/20 22:14 12/17/19 04:13 Apixaban (Eliquis) 5 mg BID ORAL 12/13/19 18:00 03/12/20 17:59 12/17/19 09:41 Aspirin (ASA) 81 mg DAILY ORAL 12/13/19 09:00 01/27/20 08:59 12/17/19 09:40 Bacitracin (Bacitracin 15gm tube) 1 applic BID TOPIC 12/13/19 09:00 03/12/20 08:59 12/17/19 09:47 Barium Sulfate (Varibar Honey) 250 ml NOW PRN MC RAD 12/17/19 14:00 12/20/19 13:54 Barium Sulfate (Varibar [place]) 240 ml NOW PRN MC RAD 12/17/19 14:00 12/20/19 13:54 Barium Sulfate (Varibar Pudding) 230 ml NOW PRN MC RAD 12/17/19 14:00 12/20/19 13:54 Barium Sulfate (Varibar Thin Liquid powder) 148 gm NOW PRN MC RAD 12/17/19 14:00 12/20/19 13:54 Clotrimazole (Lotrimin) 1 applic TWICE A DAY TOPIC 12/13/19 09:00 03/12/20 08:59 12/17/19 09:48 Dextrose (Dextrose 50%) 25 ml Q30M PRN IV Hypoglycemia 12/12/19 22:15 03/11/20 22:14 Dextrose (Dextrose 50%) 50 ml Q30M PRN IV Hypoglycemia 12/12/19 22:15 03/11/20 22:14 Digoxin (Lanoxin) 0.125 mg DAILY ORAL 12/16/19 09:00 03/15/20 08:59 12/17/19 09:40 Diltiazem HCl (Cardizem Tab) 90 mg Q6HR ORAL 12/14/19 12:00 01/13/20 11:59 12/17/19 12:35 Diphenhydramine HCl (Benadryl) 50 mg Q6H PRN IVP Itching 12/15/19 23:30 01/14/20 23:29 12/16/19 00:06 Divalproex Sodium (Depakote) 500 mg BID ORAL 12/12/19 23:00 01/11/20 22:59 12/17/19 09:39 Docusate Sodium (Colace) 200 mg TWICE A DAY ORAL 12/13/19 09:00 01/12/20 08:59 12/17/19 09:41 Famotidine (Pepcid) 10 mg DAILY ORAL 12/13/19 09:00 03/12/20 08:59 12/17/19 09:48 Ipratropium [place] (Atrovent) 500 mcg TIDRT HHN 12/12/19 22:15 12/17/19 22:14 12/17/19 14:58 Levalbuterol HCl (Xopenex) 1.25 mg TIDPRN PRN HHN sob 12/14/19 12:30 12/19/19 12:29 Lorazepam (Ativan 2mg/ml 1ml) 2 mg Q4H PRN IVP For Anxiety 12/16/19 05:09 12/22/19 05:08 12/17/19 04:13 Magnesium Hydroxide (Mom) 30 ml HSPRN PRN ORAL Constipation 12/12/19 22:15 01/11/20 22:14 Meropenem 500 mg/ Sodium Chloride 55 ml @ 110 mls/hr Q12H IVPB 12/16/19 16:00 12/21/19 15:59 12/17/19 04:07 Metoprolol Tartrate (Lopressor) 25 mg Q12HR ORAL 12/13/19 21:00 03/12/20 20:59 12/17/19 09:40 Nitroglycerin (Ntg) 0.4 mg Q5M PRN SL Prn Chest Pain 12/12/19 22:15 01/11/20 22:14 Ondansetron HCl (Zofran) 4 mg Q6H PRN IVP Nausea & Vomiting 12/12/19 22:15 01/11/20 22:14 12/13/19 02:56 Pantoprazole (Protonix) 40 mg EVERY 12 HOURS IVP 12/16/19 09:00 01/15/20 08:59 12/17/19 09:39 Risperidone (RisperDAL) 4 mg QHS ORAL 12/16/19 21:00 01/30/20 20:59 12/16/19 20:55 Aleisha Coronel MD Dec 17, 2019 15:08
--- NOTE | 2019-12-17 16:14 | Consultation ---
DATE OF CONSULTATION: 12/17/2019 INFECTIOUS DISEASE CONSULTATION CONSULTING PHYSICIAN: Aleisha Coronel MD. ATTENDING PHYSICIAN: Benjamin Dumont MD. REFERRING PHYSICIAN: Poli Grant MD and Benjamin Dumont MD. REASON FOR CONSULTATION: ESBL E. coli UTI, sepsis, fevers, acute renal failure, leukocytosis. CHIEF COMPLAINT: Patient's chief complaint coming into the hospital is COPD exacerbation. HISTORY OF PRESENT ILLNESS: This is a 69-year-old female who comes to [facility] with COPD exacerbation. Patient now was noted to have sepsis, fevers, leukocytosis. Has ESBL E. coli UTI. Infectious Disease consultation is requested. Patient was started on meropenem yesterday day #2. She is in worsening renal failure and she has what looks like CHF and edema on chest x-ray. It is unclear if patient has been on steroids. Currently, she is not on steroids. Infectious Disease consultation is requested for antibiotic management. Patient is on meropenem at this time for E. coli UTI, which is ESBL with sepsis. Case discussed with pharmacy and microbiology. REVIEW OF SYSTEMS: CONSTITUTIONAL: Patient is somewhat lethargic at this point. I believe she has a Lockett. She is weak. PULMONARY: She has mild shortness of breath noted. NEUROLOGIC: She has no seizures. CARDIAC: No chest pain. GASTROINTESTINAL: No nausea, vomiting, or diarrhea. GENITOURINARY: She has a Lockett. SKIN: No rash. PAST MEDICAL HISTORY: Patient has a past medical history of hysterectomy. She has history of COPD. She has history of atrial fibrillation. She has history of being homeless, history of obesity, gait disorder, schizophrenia, CHF, atrial fibrillation, COPD, falls. She has no history of diabetes or hypertension mentioned. Looks like she could have chronic renal failure. ALLERGIES: Include erythromycin base, haloperidol, and vancomycin. FAMILY HISTORY: Noncontributory. SOCIAL HISTORY: Negative for smoking, alcohol, or drug abuse. MEDICATIONS: Upon reviewing the MAR, patient is on following medications. She is on barium sulfate. She is on risperidone, digoxin, meropenem, pantoprazole, lorazepam, diphenhydramine, diltiazem, metoprolol, apixaban, aspirin, famotidine, Bactroban, clotrimazole, docusate, nitroglycerin, acetaminophen, Zofran. Antibiotic, meropenem. Outside medications were noted and reconciliated. PHYSICAL EXAMINATION: VITAL SIGNS: Temperature is 99.1, pulse rate 102, respiratory rate 20, blood pressure is 120+/50+, saturation 96% on 2 liters. She has had fevers earlier as high as 100.8. GENERAL: Lethargic, weak. Responsive to certain extent. HEAD AND NECK: Oral exam, no thrush. Eye exam, no icterus. Normocephalic. Neck is supple. HEART: Regular. No gallop or murmur. Occasionally irregular. Tachycardic. ABDOMEN: Soft. Positive bowel sounds. She does not seem to be tender. LUNGS: Bilateral rhonchi and crackles. No obvious rales. SKIN: No rash or dermatitis. MUSCULOSKELETAL: No effusions. Legs are without cellulitis. PERIPHERAL VASCULAR: No gangrene. GENITOURINARY: I believe she has a Lockett. LINE SITES: Without phlebitis. NEUROLOGIC: Generalized weakness, lethargic, but responsive. LABORATORY DATA: Creatinine is 4.1, on admission it was 2.3, but currently creatinine is 4.1. White count is now elevated at 13.8, hemoglobin 9.9. There are predominantly neutrophils at this time. Urinalysis, she had too many to count white blood cells, many bacteria. Cultures, VRE and MRSA screens are both positive. Urine culture greater than 100,000, ESBL E. coli that is sensitive to meropenem. I discussed with microbiology, they said it was sensitive to meropenem. IMAGING STUDIES: Chest x-ray shows what looks like pulmonary vascular congestion and effusions. ASSESSMENT AND PLAN: 1. Patient has ESBL E. coli UTI, now could be septic with tachycardia, fevers, leukocytosis. Discussed with microbiology and it is sensitive to meropenem, even though was not listed. Since it is ESBL, most likely sensitive to meropenem irregardless. I will start the patient on meropenem, which was started yesterday. Adjusted for an elevated creatinine of 500 mg IV q 12 hrs and adjusted by pharmacy. Continue meropenem for ESBL E. coli UTI and patient again could be septic with fevers, leukocytosis, and acute renal failure that is worsening. Continue meropenem. Check cultures, laboratories, chest x-ray. Continue treatment for ESBL E. coli UTI and sepsis. 2. Chronic kidney failure, acute renal failure. 3. COPD. 4. Pulmonary followup. 5. Renal followup. 6. History of falls. 7. Atrial fibrillation. Cardiology followup. 8. Obesity. 9. Gait disorder. 10. Schizophrenia. 11. Homeless. 12. Allergic to erythromycin, haloperidol, and vancomycin. 13. Social history is negative. 14. Family history is noncontributory. 15. MAR is noted. 16. Case discussed with RN. 17. Continue treatment per Dr. Dumont and consultants. Aleisha Coronel M.D. DR: ARASELI JOB#: [id number] CC: ALEXANDREA
--- NOTE | 2019-12-17 19:25 | NUR ---
NURSE HAND-OFF REPORT: Important Events on Shift:DC sitter, pt still on restrains Patient Status: Stable Diet: Regular no added salt Pending Orders: Pending Results/Labs: Pending MD notification: Latest Vital Signs: Temperature 100.2 , Pulse 99 , B/P 136 /65 , Respiratory Rate 20 , O2 SAT 100 , Nasal Cannula, O2 Flow Rate 2.0 . Vital Sign Comment: Stable EKG Rhythm: Atrial Fibrillation Rhythm change?: N MD Notified?: Y -MD Gaviota UNDERWOOD Response: Latest Abreu Fall Score: 95 Fall Risk: High Risk Safety Measures: Call light Within Reach, Bed Alarm Zone 2, Side Rails Side Rails x3, Bed position Low and Locked. Fall Precautions: Yellow Socks Yellow Gown Door Sign Patient Fall Education Report given to Barbie/RN.
--- NOTE | 2019-12-17 19:59 | General Progress Note ---
Assessment/Plan Problem List: (1) Schizophrenia ICD Codes: F20.9 - Schizophrenia, unspecified SNOMED: 24764761 (2) GERD (gastroesophageal reflux disease) ICD Codes: K21.9 - Gastro-esophageal reflux disease without esophagitis SNOMED: 103855723 (3) Lymphadema (4) Smoker ICD Codes: F17.200 - Nicotine dependence, unspecified, uncomplicated SNOMED: 92519199 (5) Atrial fibrillation with rapid ventricular response ICD Codes: I48.91 - Unspecified atrial fibrillation SNOMED: 398646085334394 (6) CKD (chronic kidney disease) stage 3, GFR 30-59 ml/min ICD Codes: N18.3 - Chronic kidney disease, stage 3 (moderate) SNOMED: 809996449 (7) NATALIE (acute kidney injury) ICD Codes: N17.9 - Acute kidney failure, unspecified SNOMED: 1932334, 28631571 (8) COPD (chronic obstructive pulmonary disease) ICD Codes: J44.9 - Chronic obstructive pulmonary disease, unspecified SNOMED: 50010921 Status: stable Assessment/Plan: tele, , pulm care, PT eval, psych to see, placement, now worse natalie, place trivedi , I/O, update lab, hold diuretic , hydrate, remains high risk Subjective ROS Limited/Unobtainable: Yes Allergies: Coded Allergies: ERYTHROMYCIN BASE (Verified Allergy, Severe, 12/12/19) HALOPERIDOL (Verified Allergy, Unknown, 12/12/19) VANCOMYCIN (Unverified Adverse Reaction, Intermediate, Shortness of Breath , 12/12/19) Objective Last 24 Hour Vital Signs Date Time Temp Pulse Resp B/P (MAP) Pulse Ox O2 Delivery O2 Flow Rate FiO2 12/17/19 18:15 99 136/65 12/17/19 16:00 100.2 107 20 136/65 (88) 100 12/17/19 16:00 99 12/17/19 14:58 106 20 97 Nasal Cannula 2.0 28 102 18 92 12/17/19 12:35 102 117/67 12/17/19 12:00 116 12/17/19 12:00 99.1 102 20 111/67 (82) 96 12/17/19 09:40 111 12/17/19 09:40 111 125/68 12/17/19 09:00 Nasal Cannula 2.0 12/17/19 08:00 98.9 111 22 125/68 (87) 95 12/17/19 08:00 111 12/17/19 07:28 78 18 99 Nasal Cannula 2.0 28 76 20 97 12/17/19 07:28 97 Nasal Cannula 2.0 28 12/17/19 06:31 105 139/61 12/17/19 04:43 105 24 139/61 95 12/17/19 04:43 100.4 12/17/19 04:13 110 24 139/71 95 12/17/19 04:00 100.8 110 26 139/61 (87) 95 12/17/19 04:00 110 12/17/19 01:45 100.0 131 26 149/81 (103) 95 12/17/19 00:08 124 154/77 12/17/19 00:00 100.5 129 25 154/77 (102) 96 12/17/19 00:00 134 12/16/19 23:04 129 27 141/85 95 12/16/19 21:45 98.1 135 24 141/69 (93) 96 12/16/19 21:00 Nasal Cannula 2.0 12/16/19 20:55 101 144/67 12/16/19 20:00 140 12/16/19 20:00 97.9 121 26 146/67 (93) 98 Intake and Output 12/16/19 12/17/19 19:00 07:00 Intake Total 240 ml Balance 240 ml Intake Oral 240 ml # Voids 3 2 Laboratory Tests 12/17/19 07:09: White Blood Count 13.8H, Red Blood Count 3.58L, Hemoglobin 9.9L, Hematocrit 31.4L, Mean Corpuscular Volume 88, Mean Corpuscular Hemoglobin 27.6, Mean Corpuscular Hemoglobin Concent 31.4L, Red Cell Distribution Width 16.9H, Platelet Count 205, Mean Platelet Volume 6.7, Neutrophils (%) (Auto) , Lymphocytes (%) (Auto) , Monocytes (%) (Auto) , Eosinophils (%) (Auto) , Basophils (%) (Auto) , Differential Total Cells Counted 100, Neutrophils % ( Manual) 88H, Lymphocytes % (Manual) 7L, Monocytes % (Manual) 4, Eosinophils % ( Manual) 0, Basophils % (Manual) 0, Band Neutrophils 1, Platelet Estimate Adequate, Platelet Morphology Normal, Hypochromasia 2+, Anisocytosis 1+, Sodium Level 145, Potassium Level 5.8H, Chloride Level 108H, Carbon Dioxide Level 28, Anion Gap 10, Blood Urea Nitrogen 68H, Creatinine 4.1H, Estimat Glomerular Filtration Rate 10.8, Glucose Level 194H, Calcium Level 9.5 Height (Feet): 5 Height (Inches): 6.00 Weight (Pounds): 298 General Appearance: lethargic, confused EENT: normal ENT inspection Cardiovascular: regular rhythm Respiratory/Chest: decreased breath sounds Abdomen: non tender Edema: no edema noted Arm (L), no edema noted Arm (R), no edema noted Leg (L), no edema noted Leg (R), no edema noted Pedal (L), no edema noted Pedal (R), no edema noted Generalized Neurologic: disoriented Benjamin Dumont MD Dec 17, 2019 19:59
--- NOTE | 2019-12-17 20:35 | NUR ---
NURSE NOTES: Received patient from NOEL Benavides. Patient is currently saturating between 90% -92%. Respiratory put her on a venturi mask @4L. Patient was suctioned and tolerated well. She is on bilateral soft wrist restraints. There are no bruising or redness on the site. Dr. Dumont called to order trivedi catheter STAT. Trivedi was inserted with urine return. Her potassium level was also 5.8. Asked dayshift nurse was not sure if was aware of potassium level so I called him and left a message informing him. Awaiting call back. IV is intact and patent. Its running 1/2 NS @100 ml/hr. There are no signs of erythema, infiltration, or bleeding at the time. Bed is in the lowest position, call light is within reach, side rails up x3. Will continue to monitor.
--- NOTE | 2019-12-17 21:01 | NUR ---
NURSE NOTES: Urine samples collected and sent to lab.
--- NOTE | 2019-12-17 21:10 | NUR ---
NURSE NOTES: Informed Dr. Dumont of ABG levels and that trivedi was inserted. Also Informed Dr. Dumont that respiratory changed patients O2 delivery to a Venturi mask @4L on 32%. He asked me to call Dr. Hdez. I called and left a message for Dr. Hdez, awaiting call back.
[2019-12-17 21:11] LABS: APPEARANCE,URINE TURBID; BILIRUBIN, URINE 1+ (NEGATIVE); GLUCOSE, URINE (UA) NEGATIVE (NEGATIVE); KETONES,URINE 1+ (NEGATIVE); LEUKOCYTE ESTERASE ,URINE 3+ (NEGATIVE); NITRITE,URINE NEGATIVE (NEGATIVE); PH,URINE 5 (4.5-8.0); PROTEIN,URINE 2+ (NEGATIVE); UROBILINOGEN,URINE 1 MG/DL (0.0-1.0)
[2019-12-17 21:13] LABS: COLOR,URINE YELLOW
--- NOTE | 2019-12-17 22:25 | CDS Physician Query ---
Clarification is required for compliance, coding accuracy, and to reflect severity of illness for this patient Dear Dr. Benjamin Dumont MD. Date: 12/15/19 CDI/CDS Name: Paxton Sierra Clinical Documentation Statement: "69-year-old female with history of schizophrenia, hypertension, COPD, and prior hospitalization here about a year ago with chest pain and heart failure with a normal ejection fraction. She presented after a fall from the wheelchair.." [ H& P Benjamin Dumont MD 12/13/191948] IMPRESSION: Afib, possibly chronic, Hx ofchest pain, documented, likely atypical. Chronic congestive heart failure, COPD, Morbid obesity, Gait disorder. Falls, Schizophrenia, Homeless. Assessment/Plan: NATALIE on CKD, Atrial fibrillation with rapid ventricular response, UTI [ Nephro PN Poli Grant MD 12/15/19 15: 50] Clinical Finding Show: 12/12/19 12/13/19 12/14/19 (20:40) (09:00) (05:35) Creatinine 2.3 2.2 1.7 BUN 43 44 30 GFR 21.1 22.3 30.0 Medication: Sodium Chloride IV Please Clarify the etiology/diagnosis associated with this findings: [x ] Acute on chronic Renal Failure (unspecified) [ ] Acute Renal Failure w/ Tubular Necrosis [ ] Acute Renal Failure w/ Cortical Necrosis [ ] Acute Renal Failure w/ Medullary Necrosis [ ] ESRD [ ] Findings are insignificant [ ] Other: Present on Admission: [x] Yes [] No [] Clinically Undetermined Physician signature Date Please also document in your Progress Notes and/or Discharge Summary and indicate if the condition was present on admission. MTDD
--- NOTE | 2019-12-17 22:34 | Psych Consult Progress Note ---
Psychiatry Progress Note Psychiatry Progress Note Subjective the pt is delusional moaning confused Medications Current Medications Medications (Trade) Dose Ordered Sig/Shiraz Route PRN Reason Start Time Stop Time Status Last Admin Dose Admin Acetaminophen (Tylenol) 650 mg Q4H PRN ORAL Temp >100.5 12/12/19 22:15 01/11/20 22:14 12/17/19 04:13 Acetaminophen (Tylenol) 650 mg Q4H PRN ORAL Mild Pain (Pain Scale 1-3) 12/12/19 22:15 01/11/20 22:14 12/17/19 21:32 Apixaban (Eliquis) 5 mg BID ORAL 12/13/19 18:00 03/12/20 17:59 12/17/19 09:41 Aspirin (ASA) 81 mg DAILY ORAL 12/13/19 09:00 01/27/20 08:59 12/17/19 09:40 Bacitracin (Bacitracin 15gm tube) 1 applic BID TOPIC 12/13/19 09:00 03/12/20 08:59 12/17/19 18:16 Barium Sulfate (Varibar Honey) 250 ml NOW PRN MC RAD 12/17/19 14:00 12/20/19 13:54 Barium Sulfate (Varibar Adeline) 240 ml NOW PRN MC RAD 12/17/19 14:00 12/20/19 13:54 Barium Sulfate (Varibar Pudding) 230 ml NOW PRN MC RAD 12/17/19 14:00 12/20/19 13:54 Barium Sulfate (Varibar Thin Liquid powder) 148 gm NOW PRN MC RAD 12/17/19 14:00 12/20/19 13:54 Clotrimazole (Lotrimin) 1 applic TWICE A DAY TOPIC 12/13/19 09:00 03/12/20 08:59 12/17/19 18:16 Dextrose (Dextrose 50%) 25 ml Q30M PRN IV Hypoglycemia 12/12/19 22:15 03/11/20 22:14 Dextrose (Dextrose 50%) 50 ml Q30M PRN IV Hypoglycemia 12/12/19 22:15 03/11/20 22:14 Digoxin (Lanoxin) 0.125 mg DAILY ORAL 12/16/19 09:00 03/15/20 08:59 12/17/19 09:40 Diltiazem HCl (Cardizem Tab) 90 mg Q6HR ORAL 12/14/19 12:00 01/13/20 11:59 12/17/19 18:15 Diphenhydramine HCl (Benadryl) 50 mg Q6H PRN IVP Itching 12/15/19 23:30 01/14/20 23:29 12/16/19 00:06 Divalproex Sodium (Depakote) 500 mg BID ORAL 12/12/19 23:00 01/11/20 22:59 12/17/19 18:15 Docusate Sodium (Colace) 200 mg TWICE A DAY ORAL 12/13/19 09:00 01/12/20 08:59 12/17/19 18:15 Famotidine (Pepcid) 10 mg DAILY ORAL 12/13/19 09:00 03/12/20 08:59 12/17/19 09:48 Levalbuterol HCl (Xopenex) 1.25 mg TIDPRN PRN HHN sob 12/14/19 12:30 12/19/19 12:29 Magnesium Hydroxide (Mom) 30 ml HSPRN PRN ORAL Constipation 12/12/19 22:15 01/11/20 22:14 Meropenem 500 mg/ Sodium Chloride 55 ml @ 110 mls/hr Q12H IVPB 12/16/19 16:00 12/21/19 15:59 12/17/19 15:58 Metoprolol Tartrate (Lopressor) 25 mg Q12HR ORAL 12/13/19 21:00 03/12/20 20:59 12/17/19 21:32 Nitroglycerin (Ntg) 0.4 mg Q5M PRN SL Prn Chest Pain 12/12/19 22:15 01/11/20 22:14 Ondansetron HCl (Zofran) 4 mg Q6H PRN IVP Nausea & Vomiting 12/12/19 22:15 01/11/20 22:14 12/13/19 02:56 Pantoprazole (Protonix) 40 mg Q24HRS IVP 12/18/19 09:00 01/17/20 08:59 Risperidone (RisperDAL) 4 mg QHS ORAL 12/16/19 21:00 01/30/20 20:59 12/17/19 21:31 Sodium Chloride 1,000 ml @ 100 mls/hr Q10H IV 12/17/19 16:00 01/16/20 15:59 12/17/19 15:59 Neurological/Psychiatric: Reports: anxiety, depressed, emotional problems Allergies: Coded Allergies: ERYTHROMYCIN BASE (Verified Allergy, Severe, 12/12/19) HALOPERIDOL (Verified Allergy, Unknown, 12/12/19) VANCOMYCIN (Unverified Adverse Reaction, Intermediate, Shortness of Breath , 12/12/19) Objective Data Height (Feet): 5 Height (Inches): 6.00 Weight (Pounds): 298 General Appearance: lethargic, confused, agitated Additional Comments: Alert and oriented times self, place. Mood is agitated. Affect is flat. Thought process, there is a paucity of thought content. Thought content, no suicidal or homicidal ideation. Cognition is impaired. Insight and judgment is impaired. Assessment/Plan [place] I: ASSESSMENT: [place] I Schizophrenia. [place] II Deferred. [place] III Recently diagnosed with COVID-19. [place] IV Homelessness. [place] V 55 PLAN: 1. risperidone 4mg 2. Depakote. 3. Discussed with Dr. Dumont. Status: stable Assessment/Plan: ASSESSMENT: [place] I Schizophrenia. [place] II Deferred. [place] III Recently diagnosed with COVID-19. [place] IV Homelessness. [place] V 55 PLAN: 1. risperidone 4mg 2. Depakote. 3. Discussed with Dr. Dumont. Harris Ballesteros MD Dec 17, 2019 22:34
[2019-12-18] VITALS: BP 138/65
--- NOTE | 2019-12-18 00:13 | Cardiology Progress Note ---
Subjective DATE OF SERVICE: Dec 16, 2019 More somnolent Monitor: AFIb with rapid rates throughout day No SOB or hypoxia at rest TSH 0.88 Venous Duplex: negative for DVT Objective Last 24 Hour Vital Signs Date Time Temp Pulse Resp B/P (MAP) Pulse Ox O2 Delivery O2 Flow Rate FiO2 12/17/19 22:02 99.5 12/17/19 21:32 104 131/72 12/17/19 21:00 Nasal Cannula 2.0 12/17/19 19:23 94 Venturi Mask 4.0 31 12/17/19 19:23 106 20 94 Venturi Mask 4.0 31 109 18 90 12/17/19 18:15 99 136/65 12/17/19 16:00 100.2 107 20 136/65 (88) 100 12/17/19 16:00 99 12/17/19 14:58 106 20 97 Nasal Cannula 2.0 28 102 18 92 12/17/19 12:35 102 117/67 12/17/19 12:00 116 12/17/19 12:00 99.1 102 20 111/67 (82) 96 12/17/19 09:40 111 12/17/19 09:40 111 125/68 12/17/19 09:00 Nasal Cannula 2.0 12/17/19 08:00 98.9 111 22 125/68 (87) 95 12/17/19 08:00 111 12/17/19 07:28 78 18 99 Nasal Cannula 2.0 28 76 20 97 12/17/19 07:28 97 Nasal Cannula 2.0 28 12/17/19 06:31 105 139/61 12/17/19 04:43 105 24 139/61 95 12/17/19 04:43 100.4 12/17/19 04:13 110 24 139/71 95 12/17/19 04:00 100.8 110 26 139/61 (87) 95 12/17/19 04:00 110 12/17/19 01:45 100.0 131 26 149/81 (103) 95 ROS: unchanged from 12/12/19 LUNGS: diminished breath sounds CARDIAC: normal S1 and S2, irregularly irregular ABDOMEN: other - obese EXTREMITIES: moderate edema - mostly non pitting Laboratory Tests Test 12/17/19 07:09 12/17/19 20:26 12/17/19 20:45 White Blood Count 13.8 K/UL (4.8-10.8) H Red Blood Count 3.58 M/UL (4.20-5.40) L Hemoglobin 9.9 G/DL (12.0-16.0) L Hematocrit 31.4 % (37.0-47.0) L Mean Corpuscular Volume 88 FL (80-99) Mean Corpuscular Hemoglobin 27.6 PG (27.0-31.0) Mean Corpuscular Hemoglobin Concent 31.4 G/DL (32.0-36.0) L Red Cell Distribution Width 16.9 % (11.6-14.8) H Platelet Count 205 K/UL (150-450) Mean Platelet Volume 6.7 FL (6.5-10.1) Neutrophils (%) (Auto) % (45.0-75.0) Lymphocytes (%) (Auto) % (20.0-45.0) Monocytes (%) (Auto) % (1.0-10.0) Eosinophils (%) (Auto) % (0.0-3.0) Basophils (%) (Auto) % (0.0-2.0) Differential Total Cells Counted 100 Neutrophils % (Manual) 88 % (45-75) H Lymphocytes % (Manual) 7 % (20-45) L Monocytes % (Manual) 4 % (1-10) Eosinophils % (Manual) 0 % (0-3) Basophils % (Manual) 0 % (0-2) Band Neutrophils 1 % (0-8) Platelet Estimate Adequate Platelet Morphology Normal Hypochromasia 2+ Anisocytosis 1+ Sodium Level 145 MMOL/L (136-145) Potassium Level 5.8 MMOL/L (3.5-5.1) H Chloride Level 108 MMOL/L (98-107) H Carbon Dioxide Level 28 MMOL/L (21-32) Anion Gap 10 mmol/L (5-15) Blood Urea Nitrogen 68 mg/dL (7-18) H Creatinine 4.1 MG/DL (0.55-1.30) H Estimat Glomerular Filtration Rate 10.8 mL/min (>60) Glucose Level 194 MG/DL (74-106) H Calcium Level 9.5 MG/DL (8.5-10.1) Arterial Blood pH 7.478 (7.350-7.450) Arterial Blood Partial Pressure CO2 34.4 mmHg (35.0-45.0) L Arterial Blood Partial Pressure O2 60.6 mmHg (75.0-100.0) L Arterial Blood HCO3 24.9 mmol/L (22.0-26.0) Arterial Blood Oxygen Saturation 91.4 % (95-100) L Arterial Blood Base Excess 1.6 (-2-2) Eugene Test Positive Urine Color Yellow Urine Appearance Turbid Urine pH 5 (4.5-8.0) Urine Specific [place] 1.020 (1.005-1.035) Urine Protein 2+ (NEGATIVE) H Urine Glucose (UA) Negative (NEGATIVE) Urine Ketones 1+ (NEGATIVE) H Urine Blood 3+ (NEGATIVE) H Urine Nitrite Negative (NEGATIVE) Urine Bilirubin 1+ (NEGATIVE) H Urine Ictotest Negative (NEGATIVE) Urine Urobilinogen 1 MG/DL (0.0-1.0) H Urine Leukocyte Esterase 3+ (NEGATIVE) H Urine RBC 15-20 /HPF (0 - 2) H Urine WBC Tntc /HPF (0 - 2) H Urine Squamous Epithelial Cells Many /LPF (NONE/OCC) H Urine Bacteria Many /HPF (NONE) H Urine Osmolality 410 mOsm/kg (429-449) L Urine Random Sodium < 20 mmol/L (20-110) L Urine Creatinine 318.8 MG/DL (30.0-125.0) H Assessment/Plan Assessment/Plan AFiB with RVR CHF, ac/chr diast - compensated BLE edema UTI with sepsis obesity COPD with bronchospasm Acute renal failure Advance rate control meds - IV digitalis added Eliquis at renal dosing Encourage oral intake - observe renal fxn Continued media monitor Jerome Meek MD Dec 18, 2019 00:13
--- NOTE | 2019-12-18 00:16 | Cardiology Progress Note ---
Subjective DATE OF SERVICE: Dec 17, 2019 More somnolent; unable to take oral meds Monitor: AFIb with rapid rates throughout day - but improved following digitaliz 'n No SOB or hypoxia at rest TSH 0.88 Venous Duplex: negative for DVT Renal fxn worsening Objective Last 24 Hour Vital Signs Date Time Temp Pulse Resp B/P (MAP) Pulse Ox O2 Delivery O2 Flow Rate FiO2 12/17/19 22:02 99.5 12/17/19 21:32 104 131/72 12/17/19 21:00 Nasal Cannula 2.0 12/17/19 19:23 94 Venturi Mask 4.0 31 12/17/19 19:23 106 20 94 Venturi Mask 4.0 31 109 18 90 12/17/19 18:15 99 136/65 12/17/19 16:00 100.2 107 20 136/65 (88) 100 12/17/19 16:00 99 12/17/19 14:58 106 20 97 Nasal Cannula 2.0 28 102 18 92 12/17/19 12:35 102 117/67 12/17/19 12:00 116 12/17/19 12:00 99.1 102 20 111/67 (82) 96 12/17/19 09:40 111 12/17/19 09:40 111 125/68 12/17/19 09:00 Nasal Cannula 2.0 12/17/19 08:00 98.9 111 22 125/68 (87) 95 12/17/19 08:00 111 12/17/19 07:28 78 18 99 Nasal Cannula 2.0 28 76 20 97 12/17/19 07:28 97 Nasal Cannula 2.0 28 12/17/19 06:31 105 139/61 12/17/19 04:43 105 24 139/61 95 12/17/19 04:43 100.4 12/17/19 04:13 110 24 139/71 95 12/17/19 04:00 100.8 110 26 139/61 (87) 95 12/17/19 04:00 110 12/17/19 01:45 100.0 131 26 149/81 (103) 95 ROS: unchanged from 12/12/19 LUNGS: diminished breath sounds CARDIAC: normal S1 and S2, irregularly irregular ABDOMEN: other - obese EXTREMITIES: moderate edema - mostly non pitting Laboratory Tests Test 12/17/19 07:09 12/17/19 20:26 12/17/19 20:45 White Blood Count 13.8 K/UL (4.8-10.8) H Red Blood Count 3.58 M/UL (4.20-5.40) L Hemoglobin 9.9 G/DL (12.0-16.0) L Hematocrit 31.4 % (37.0-47.0) L Mean Corpuscular Volume 88 FL (80-99) Mean Corpuscular Hemoglobin 27.6 PG (27.0-31.0) Mean Corpuscular Hemoglobin Concent 31.4 G/DL (32.0-36.0) L Red Cell Distribution Width 16.9 % (11.6-14.8) H Platelet Count 205 K/UL (150-450) Mean Platelet Volume 6.7 FL (6.5-10.1) Neutrophils (%) (Auto) % (45.0-75.0) Lymphocytes (%) (Auto) % (20.0-45.0) Monocytes (%) (Auto) % (1.0-10.0) Eosinophils (%) (Auto) % (0.0-3.0) Basophils (%) (Auto) % (0.0-2.0) Differential Total Cells Counted 100 Neutrophils % (Manual) 88 % (45-75) H Lymphocytes % (Manual) 7 % (20-45) L Monocytes % (Manual) 4 % (1-10) Eosinophils % (Manual) 0 % (0-3) Basophils % (Manual) 0 % (0-2) Band Neutrophils 1 % (0-8) Platelet Estimate Adequate Platelet Morphology Normal Hypochromasia 2+ Anisocytosis 1+ Sodium Level 145 MMOL/L (136-145) Potassium Level 5.8 MMOL/L (3.5-5.1) H Chloride Level 108 MMOL/L (98-107) H Carbon Dioxide Level 28 MMOL/L (21-32) Anion Gap 10 mmol/L (5-15) Blood Urea Nitrogen 68 mg/dL (7-18) H Creatinine 4.1 MG/DL (0.55-1.30) H Estimat Glomerular Filtration Rate 10.8 mL/min (>60) Glucose Level 194 MG/DL (74-106) H Calcium Level 9.5 MG/DL (8.5-10.1) Arterial Blood pH 7.478 (7.350-7.450) Arterial Blood Partial Pressure CO2 34.4 mmHg (35.0-45.0) L Arterial Blood Partial Pressure O2 60.6 mmHg (75.0-100.0) L Arterial Blood HCO3 24.9 mmol/L (22.0-26.0) Arterial Blood Oxygen Saturation 91.4 % (95-100) L Arterial Blood Base Excess 1.6 (-2-2) Eugene Test Positive Urine Color Yellow Urine Appearance Turbid Urine pH 5 (4.5-8.0) Urine Specific [place] 1.020 (1.005-1.035) Urine Protein 2+ (NEGATIVE) H Urine Glucose (UA) Negative (NEGATIVE) Urine Ketones 1+ (NEGATIVE) H Urine Blood 3+ (NEGATIVE) H Urine Nitrite Negative (NEGATIVE) Urine Bilirubin 1+ (NEGATIVE) H Urine Ictotest Negative (NEGATIVE) Urine Urobilinogen 1 MG/DL (0.0-1.0) H Urine Leukocyte Esterase 3+ (NEGATIVE) H Urine RBC 15-20 /HPF (0 - 2) H Urine WBC Tntc /HPF (0 - 2) H Urine Squamous Epithelial Cells Many /LPF (NONE/OCC) H Urine Bacteria Many /HPF (NONE) H Urine Osmolality 410 mOsm/kg (429-449) L Urine Random Sodium < 20 mmol/L (20-110) L Urine Creatinine 318.8 MG/DL (30.0-125.0) H Assessment/Plan Assessment/Plan AFiB with RVR CHF, ac/chr diast - compensated BLE edema UTI with sepsis obesity COPD with bronchospasm Acute renal failure - worsening Pleural effusion Advance rate control meds - cont'd digitalis Eliquis at renal dosing IVF added until po intake improves; observe renal fxn Continued manager monitoring Thorocentesis planned Jerome Meek MD Dec 18, 2019 00:16
[2019-12-18] MEDS: dilTIAZem HCl 90mg tab ORAL SCH ×4 (00:49→18:00)
[2019-12-18 04:00] VITALS: BP 134/70
[2019-12-18] MEDS: Meropenem 500mg in NS 55ml IVPB SCH ×2 (04:33→16:14)
--- NOTE | 2019-12-18 07:35 | NUR ---
NURSE NOTES: Received report from Barbie/RN, Observed patient asleep, Lying semi-walden's, resting comfortably. On 2L nasal canula, no acute distress/SOB noted. IV site patent and intact, 1/2 NS running at 100cc/hr. Ice pack on bilateral knee noted. Lockett draining well to gravity. Bed in low position and locked, side rails up x3, Call light within reach, Encouraged to use call light when needed. Restraint on bilateral wrist for safety. Will continue plan of care.
--- NOTE | 2019-12-18 07:52 | NUR ---
NURSE HAND-OFF REPORT: Important Events on Shift:[Lockett was inserted, Dr. Meek was informed of 5.8 potassium] Patient Status: []Full code Diet: [Regula, No added salt] Pending Orders: [NA] Pending Results/Labs:[NA] Pending MD notification:[NA] Latest Vital Signs: Temperature 97.9 , Pulse 101 , B/P 134 /70 , Respiratory Rate 26 , O2 SAT 95 , Nasal Cannula, O2 Flow Rate 2.0 . Vital Sign Comment: [NA] EKG Rhythm: Atrial Fibrillation Rhythm change?: N MD Notified?: Y -MD Gaviota UNDERWOOD Response: Latest Abreu Fall Score: 95 Fall Risk: High Risk Safety Measures: Call light Within Reach, Bed Alarm Zone 2, Side Rails Side Rails x3, Bed position Low and Locked. Fall Precautions: Yellow Socks Yellow Gown Door Sign Patient Fall Education Report given to [NOEL Fox].
[2019-12-18 08:00] VITALS: BP 149/72
--- NOTE | 2019-12-18 08:35 | NUR ---
RADIOLOGY DEPT., CHEST X-RAY DONE.-P.DYE
[2019-12-18] MEDS ORDERED: Pantoprazole Inj IVP SCH ×2 (09:00→21:00)
[2019-12-18] MEDS: Digoxin 0.125mg tab ORAL SCH ×2 (09:00→09:49)
[2019-12-18 09:01] LABS: HEMATOCRIT 27.7 % (37.0-47.0); HEMOGLOBIN 8.7 G/DL (12.0-16.0); MEAN CORPUSCULAR VOLUME 88 FL (80-99); PLATELET COUNT 160 K/UL (150-450); RED BLOOD COUNT 3.14 M/UL (4.20-5.40); RED CELL DISTRIBUTION WIDTH 16.8 % (11.6-14.8); WHITE BLOOD COUNT 11.1 K/UL (4.8-10.8)
--- NOTE | 2019-12-18 09:30 | NUR ---
PT NOTE Attempted to see patient for PT treatment. Approached patient, patient sleeping, able to wake patient however patient unable to follow commands or to say her name. Patient continued to moan loudly. Patient unable to participate with PT at this time, Dominique RN notified, will follow.
[2019-12-18 09:40] LABS: CREATINE KINASE 178 U/L (26-308)
[2019-12-18] MEDS: Docusate 100mg cap ORAL SCH ×2 (09:48→18:00)
[2019-12-18] MEDS: Aspirin Baby 81mg ORAL SCH (09:48)
--- NOTE | 2019-12-18 09:48 | General Progress Note ---
Assessment/Plan Problem List: (1) CKD (chronic kidney disease) stage 3, GFR 30-59 ml/min ICD Codes: N18.3 - Chronic kidney disease, stage 3 (moderate) SNOMED: 550470121 (2) COPD (chronic obstructive pulmonary disease) ICD Codes: J44.9 - Chronic obstructive pulmonary disease, unspecified SNOMED: 27820641 (3) Smoker ICD Codes: F17.200 - Nicotine dependence, unspecified, uncomplicated SNOMED: 89995118 (4) GERD (gastroesophageal reflux disease) ICD Codes: K21.9 - Gastro-esophageal reflux disease without esophagitis SNOMED: 435338411 (5) Atrial fibrillation with RVR ICD Codes: I48.91 - Unspecified atrial fibrillation SNOMED: 260890118338304 Status: stable Assessment/Plan: ? hematemesis ppi bid fu H&H monitor labs speech eval pending thoracentesis needs cardiac clearance [facility] procedures on Eliquis Subjective Allergies: Coded Allergies: ERYTHROMYCIN BASE (Verified Allergy, Severe, 12/12/19) HALOPERIDOL (Verified Allergy, Unknown, 12/12/19) VANCOMYCIN (Unverified Adverse Reaction, Intermediate, Shortness of Breath , 12/12/19) Objective Last 24 Hour Vital Signs Date Time Temp Pulse Resp B/P (MAP) Pulse Ox O2 Delivery O2 Flow Rate FiO2 12/18/19 08:00 99.0 90 18 149/72 (97) 94 12/18/19 06:01 101 134/70 12/18/19 04:00 97.9 100 26 134/70 (91) 95 12/18/19 04:00 101 12/18/19 00:49 103 138/65 12/18/19 00:00 101.0 103 30 138/65 (89) 97 12/18/19 00:00 98 12/17/19 22:02 99.5 12/17/19 21:32 104 131/72 12/17/19 21:00 Nasal Cannula 2.0 12/17/19 20:00 111 12/17/19 20:00 102.2 104 20 131/72 (91) 93 12/17/19 19:23 94 Venturi Mask 4.0 31 12/17/19 19:23 106 20 94 Venturi Mask 4.0 31 109 18 90 12/17/19 18:15 99 136/65 12/17/19 16:00 100.2 107 20 136/65 (88) 100 12/17/19 16:00 99 12/17/19 14:58 106 20 97 Nasal Cannula 2.0 28 102 18 92 12/17/19 12:35 102 117/67 12/17/19 12:00 116 12/17/19 12:00 99.1 102 20 111/67 (82) 96 Intake and Output 12/17/19 12/18/19 19:00 07:00 Intake Total 376.6 ml 858.3 ml Output Total 300 ml Balance 376.6 ml 558.3 ml Intake Oral 75 ml IV Total 301.6 ml 858.3 ml Output Urine Total 300 ml # Voids 1 Laboratory Tests 12/17/19 20:26: Arterial Blood pH 7.478H, Arterial Blood Partial Pressure CO2 34.4L, Arterial Blood Partial Pressure O2 60.6L, Arterial Blood HCO3 24.9, Arterial Blood Oxygen Saturation 91.4L, Arterial Blood Base Excess 1.6, Eugene Test Positive 12/17/19 20:45: Urine Color Yellow, Urine Appearance Turbid, Urine pH 5, Urine Specific Wright 1.020, Urine Protein 2+H, Urine Glucose (UA) Negative, Urine Ketones 1+H, Urine Blood 3+H, Urine Nitrite Negative, Urine Bilirubin 1+H, Urine Ictotest Negative , Urine Urobilinogen 1H, Urine Leukocyte Esterase 3+H, Urine RBC 15-20H, Urine WBC TntcH, Urine Squamous Epithelial Cells ManyH, Urine Bacteria ManyH, Urine Osmolality 410L, Urine Random Sodium < 20L, Urine Creatinine 318.8H 12/18/19 08:35: White Blood Count 11.1H, Red Blood Count 3.14L, Hemoglobin 8.7L, Hematocrit 27.7L, Mean Corpuscular Volume 88, Mean Corpuscular Hemoglobin 27.5, Mean Corpuscular Hemoglobin Concent 31.2L, Red Cell Distribution Width 16.8H, Platelet Count 160, Mean Platelet Volume 7.0, Neutrophils (%) (Auto) , Lymphocytes (%) (Auto) , Monocytes (%) (Auto) , Eosinophils (%) (Auto) , Basophils (%) (Auto) , Neutrophils % (Manual) [Pending], Lymphocytes % (Manual) [Pending], Platelet Estimate [Pending], Platelet Morphology [Pending], Sodium Level [Pending], Potassium Level [Pending], Chloride Level [Pending], Carbon Dioxide Level [Pending], Blood Urea Nitrogen [Pending], Creatinine [Pending], Estimat Glomerular Filtration Rate [Pending], Glucose Level [Pending], Uric Acid 16.5H, Calcium Level [Pending], Total Bilirubin [Pending], Aspartate Amino Transf (AST/SGOT) [Pending], Alanine Aminotransferase (ALT/SGPT) [Pending], Alkaline Phosphatase [Pending], Total Creatine Kinase 178, Total Protein [ Pending], Albumin [Pending], Globulin [Pending], Digoxin Level [Pending] Height (Feet): 5 Height (Inches): 6.00 Weight (Pounds): 298 General Appearance: no apparent distress EENT: normal ENT inspection Neck: supple Cardiovascular: normal rate Respiratory/Chest: decreased breath sounds Abdomen: normal bowel sounds, non tender, soft Extremities: non-tender Mervin Victoria MD Dec 18, 2019 09:48
[2019-12-18 09:49] LABS: ALANINE AMINOTRANSFERASE 14 U/L (12-78); ALBUMIN 2.6 G/DL (3.4-5.0); ALBUMIN/GLOBULIN RATIO 0.6 (1.0-2.7); ALKALINE PHOSPHATASE 59 U/L (46-116); ANION GAP 10 mmol/L (5-15); ASPARTATE AMINO TRANSFERASE 19 U/L (15-37); BILIRUBIN,TOTAL 0.9 MG/DL (0.2-1.0); BLOOD UREA NITROGEN 92 mg/dL (7-18); CALCIUM 8.9 MG/DL (8.5-10.1); CARBON DIOXIDE 30 MMOL/L (21-32); CHLORIDE 109 MMOL/L (98-107); CREATININE 4.3 MG/DL (0.55-1.30); POTASSIUM 5.5 MMOL/L (3.5-5.1); SODIUM 149 MMOL/L (136-145)
[2019-12-18] MEDS: Eliquis 5mg tablet ORAL SCH ×2 (09:49→18:00)
[2019-12-18] MEDS: Depakote 500mg tab ORAL SCH ×2 (09:50→18:00)
--- NOTE | 2019-12-18 10:00 | NUR ---
NURSE NOTES: Patient has Bruises on bilateral knee, Ice pack placed, and elevated with pillow.
--- NOTE | 2019-12-18 10:08 | Pulmonology Progress Note ---
Luz Bowen RAKE OPERATOR 12/18/19 1008: Subjective ROS Limited/Unobtainable: Yes Allergies: Coded Allergies: ERYTHROMYCIN BASE (Verified Allergy, Severe, 12/12/19) HALOPERIDOL (Verified Allergy, Unknown, 12/12/19) VANCOMYCIN (Unverified Adverse Reaction, Intermediate, Shortness of Breath , 12/12/19) Subjective on O2 via NC, pulse ox stable episode of desaturation last night, placed on VM-> ABG stable, CXR no change, back on O2 via NC no signs of resp distress ? anxiety leuk trending down, afebrile creat up to 4.3 Objective Last 24 Hour Vital Signs Date Time Temp Pulse Resp B/P (MAP) Pulse Ox O2 Delivery O2 Flow Rate FiO2 12/18/19 09:49 90 12/18/19 09:49 90 149/72 12/18/19 08:00 99.0 90 18 149/72 (97) 94 12/18/19 06:01 101 134/70 12/18/19 04:00 97.9 100 26 134/70 (91) 95 12/18/19 04:00 101 12/18/19 00:49 103 138/65 12/18/19 00:00 101.0 103 30 138/65 (89) 97 12/18/19 00:00 98 12/17/19 22:02 99.5 12/17/19 21:32 104 131/72 12/17/19 21:00 Nasal Cannula 2.0 12/17/19 20:00 111 12/17/19 20:00 102.2 104 20 131/72 (91) 93 12/17/19 19:23 94 Venturi Mask 4.0 31 12/17/19 19:23 106 20 94 Venturi Mask 4.0 31 109 18 90 12/17/19 18:15 99 136/65 12/17/19 16:00 100.2 107 20 136/65 (88) 100 12/17/19 16:00 99 12/17/19 14:58 106 20 97 Nasal Cannula 2.0 28 102 18 92 12/17/19 12:35 102 117/67 12/17/19 12:00 116 12/17/19 12:00 99.1 102 20 111/67 (82) 96 Intake and Output 9/7/20 9/8/20 19:00 07:00 Intake Total 376.6 ml 858.3 ml Output Total 300 ml Balance 376.6 ml 558.3 ml Intake Oral 75 ml IV Total 301.6 ml 858.3 ml Output Urine Total 300 ml # Voids 1 Objective General Appearance: morbidly obese somewhat anxious female in NAD Lines, tubes and drains: peripheral HEENT: normocephalic, atraumatic, anicteric, mucous membranes moist Neck: non-tender Respiratory/Chest: chest wall non-tender, no accessory muscle use, decreased breath sounds Cardiovascular/Chest: irregularly irregular - A fib , rate overall controlled now , distant heart sounds Abdomen: normal bowel sounds, non tender , obese, soft Extremities: no calf tenderness, moderate edema - +2 BLE, R knee with large hematoma, edema, warm to touch Skin Exam: warm/dry, multiple tattoos Neurologic: abnormal gait - w/chair bound , alert, responsive, anxious Musculoskeletal: normal muscle bulk Microbiology Date/Time Source Procedure Growth Status 12/17/19 20:45 Indwelling Cath Urine Culture - Preliminary NO GROWTH Resulted Laboratory Tests 12/17/19 20:26: Arterial Blood pH 7.478H, Arterial Blood Partial Pressure CO2 34.4L, Arterial Blood Partial Pressure O2 60.6L, Arterial Blood HCO3 24.9, Arterial Blood Oxygen Saturation 91.4L, Arterial Blood Base Excess 1.6, Eugene Test Positive 12/17/19 20:45: Urine Color Yellow, Urine Appearance Turbid, Urine pH 5, Urine Specific Kimberly 1.020, Urine Protein 2+H, Urine Glucose (UA) Negative, Urine Ketones 1+H, Urine Blood 3+H, Urine Nitrite Negative, Urine Bilirubin 1+H, Urine Ictotest Negative , Urine Urobilinogen 1H, Urine Leukocyte Esterase 3+H, Urine RBC 15-20H, Urine WBC TntcH, Urine Squamous Epithelial Cells ManyH, Urine Bacteria ManyH, Urine Osmolality 410L, Urine Random Sodium < 20L, Urine Creatinine 318.8H 12/18/19 08:35: White Blood Count 11.1H, Red Blood Count 3.14L, Hemoglobin 8.7L, Hematocrit 27.7L, Mean Corpuscular Volume 88, Mean Corpuscular Hemoglobin 27.5, Mean Corpuscular Hemoglobin Concent 31.2L, Red Cell Distribution Width 16.8H, Platelet Count 160, Mean Platelet Volume 7.0, Neutrophils (%) (Auto) , Lymphocytes (%) (Auto) , Monocytes (%) (Auto) , Eosinophils (%) (Auto) , Basophils (%) (Auto) , Neutrophils % (Manual) [Pending], Lymphocytes % (Manual) [Pending], Platelet Estimate [Pending], Platelet Morphology [Pending], Sodium Level 149H, Potassium Level 5.5H, Chloride Level 109H, Carbon Dioxide Level 30, Anion Gap 10, Blood Urea Nitrogen 92H, Creatinine 4.3H, Estimat Glomerular Filtration Rate 10.2, Glucose Level 151H, Uric Acid 16.5H, Calcium Level 8.9, Total Bilirubin 0.9, Aspartate Amino Transf (AST/SGOT) 19, Alanine Aminotransferase (ALT/SGPT) 14, Alkaline Phosphatase 59, Total Creatine Kinase 178, Total Protein 6.8, Albumin 2.6L, Globulin 4.2, Albumin/Globulin Ratio 0.6L , Digoxin Level 2.9*H Current Medications Medications (Trade) Dose Ordered Sig/Shiraz Route PRN Reason Start Time Stop Time Status Last Admin Dose Admin Acetaminophen (Tylenol) 650 mg Q4H PRN ORAL Temp >100.5 12/12/19 22:15 01/11/20 22:14 12/17/19 04:13 Acetaminophen (Tylenol) 650 mg Q4H PRN ORAL Mild Pain (Pain Scale 1-3) 12/12/19 22:15 01/11/20 22:14 12/17/19 21:32 Apixaban (Eliquis) 5 mg BID ORAL 12/13/19 18:00 03/12/20 17:59 12/18/19 09:49 Aspirin (ASA) 81 mg DAILY ORAL 12/13/19 09:00 01/27/20 08:59 12/18/19 09:48 Bacitracin (Bacitracin 15gm tube) 1 applic BID TOPIC 12/13/19 09:00 03/12/20 08:59 12/17/19 18:16 Barium Sulfate (Varibar Honey) 250 ml NOW PRN MC RAD 12/17/19 14:00 12/20/19 13:54 Barium Sulfate (Varibar [place]) 240 ml NOW PRN MC RAD 12/17/19 14:00 12/20/19 13:54 Barium Sulfate (Varibar Pudding) 230 ml NOW PRN RAD 12/17/19 14:00 12/20/19 13:54 Barium Sulfate (Varibar Thin Liquid powder) 148 gm NOW PRN RAD 12/17/19 14:00 12/20/19 13:54 Clotrimazole (Lotrimin) 1 applic TWICE A DAY TOPIC 12/13/19 09:00 03/12/20 08:59 12/17/19 18:16 Dextrose (Dextrose 50%) 25 ml Q30M PRN IV Hypoglycemia 12/12/19 22:15 03/11/20 22:14 Dextrose (Dextrose 50%) 50 ml Q30M PRN IV Hypoglycemia 12/12/19 22:15 03/11/20 22:14 Digoxin (Lanoxin) 0.125 mg DAILY ORAL 12/16/19 09:00 03/15/20 08:59 12/18/19 09:49 Diltiazem HCl (Cardizem Tab) 90 mg Q6HR ORAL 12/14/19 12:00 01/13/20 11:59 12/18/19 06:01 Diphenhydramine HCl (Benadryl) 50 mg Q6H PRN IVP Itching 12/15/19 23:30 01/14/20 23:29 12/16/19 00:06 Divalproex Sodium (Depakote) 500 mg BID ORAL 12/12/19 23:00 01/11/20 22:59 12/18/19 09:50 Docusate Sodium (Colace) 200 mg TWICE A DAY ORAL 12/13/19 09:00 01/12/20 08:59 12/18/19 09:48 Famotidine (Pepcid) 10 mg DAILY ORAL 12/13/19 09:00 03/12/20 08:59 12/18/19 09:49 Levalbuterol HCl (Xopenex) 1.25 mg TIDPRN PRN HHN sob 12/14/19 12:30 12/19/19 12:29 Magnesium Hydroxide (Mom) 30 ml HSPRN PRN ORAL Constipation 12/12/19 22:15 01/11/20 22:14 Meropenem 500 mg/ Sodium Chloride 55 ml @ 110 mls/hr Q12H IVPB 12/16/19 16:00 12/21/19 15:59 12/18/19 04:33 Metoprolol Tartrate (Lopressor) 25 mg Q12HR ORAL 12/13/19 21:00 03/12/20 20:59 12/18/19 09:49 Nitroglycerin (Ntg) 0.4 mg Q5M PRN SL Prn Chest Pain 12/12/19 22:15 01/11/20 22:14 Ondansetron HCl (Zofran) 4 mg Q6H PRN IVP Nausea & Vomiting 12/12/19 22:15 01/11/20 22:14 12/13/19 02:56 Pantoprazole (Protonix) 40 mg Q24HRS IVP 12/18/19 09:00 01/17/20 08:59 12/18/19 09:50 Risperidone (RisperDAL) 4 mg QHS ORAL 12/16/19 21:00 01/30/20 20:59 12/17/19 21:31 Sodium Chloride 1,000 ml @ 100 mls/hr Q10H IV 12/17/19 16:00 01/16/20 15:59 12/18/19 02:25 Assessment/Plan Assessment/Plan ASSESSMENT COPD Bronchospasm Atrial fibrillation with rapid ventricular response Congestive heart failure Acute renal failure on CKD UTI with E coli ESBL Status post ground fall Tobacco dependency Morbid obesity Homeless R knee edema and hematoma, likely sprain /strain post fall PLAN OF CARE tele hold steroids for now, given acute renal failure, no wheezing, s/p loading dose of steroids in ED closely monitor resp status and oxygenation O2 titrate to keep sat above 92% pulm toilet with Atrovent ATC and Xopenex PRN Venous Duplex BLE -NGT CXR 12/13 with equivocal mild interstitial congestion, unchanged , cardiomegaly UCX+ E coli ESBL, S to Macrobid started on meropenem as per ID leukocytosis trending down CXR 12/16 no change X ray R knee given fall 12/15 , large hematoma, swelling-no fx or dislocation ice R knee and elevate CT head no acute IC pathology fall precautions declined Nicotine patch on a/c rate control- per cardio recs: on BB, Cardizem and Digoxin monitor volumes ECHO with pEF no evidence of WMA GI prophylaxis renal US no hydro, BL nonobstructive stones monitor renal parameters, lytes , creat trending up, K up- per nephro management, avoid nephrotoxics as possible may need HD discussion on weight loss if receptive - not at this time; anxious and wants to go home pain management anxiolytic prn SW consult for placement case discussed and evaluated by supervising physician ivy mccarty for a consult! Igor Carpio MD 12/18/19 1305: Subjective Allergies: Coded Allergies: ERYTHROMYCIN BASE (Verified Allergy, Severe, 12/12/19) HALOPERIDOL (Verified Allergy, Unknown, 12/12/19) VANCOMYCIN (Unverified Adverse Reaction, Intermediate, Shortness of Breath , 12/12/19) Assessment/Plan Assessment/Plan Patient seen and examined with RAKE OPERATOR. Agree with above A&P as it reflects our joint deliberations. Luz Bowen NP Dec 18, 2019 10:08 Igor Carpio MD Dec 18, 2019 13:05
[2019-12-18] MEDS: Bacitracin Oint 15gm Tube TOPIC SCH ×2 (10:30→18:00)
[2019-12-18 12:00] VITALS: BP 157/79
--- NOTE | 2019-12-18 12:30 | NUR ---
NURSE NOTES: Patient unable to swallow food or medications, Received order from Dr. Dumont for NG tube placement. Will carry out the order.
--- NOTE | 2019-12-18 13:00 | NUR ---
NURSE NOTES: Patient mental status changed. Dr. Dumont wants RN to contact dr. Ballesteros for assessment. Order carried out and contacted Dr. Ballesteros. Dr. Ballesteros will come and see the patient.
--- NOTE | 2019-12-18 13:19 | NUR ---
RD ASSESSMENT & RECOMMENDATIONS SEE CARE ACTIVITY FOR COMPLETE ASSESSMENT DAILY ESTIMATED NEEDS: Needs based on Obesity, Cardiac, DM, NATALIE/ 80.5kg 20-23 kcals/kg 6931-7809 total kcals 0.6-1.0 g protein/kg 48-80 g total protein 20-25 mL/kg 4829-7749 total fluid mLs NUTRITION DIAGNOSIS: 1) Class III Obesity R/T lifestyle factors? excessive energy intake as evidenced by pt w/ BMI >50, @ 245% IBW. 2) Altered nutrition related lab values R/T diabetes, altered lipid metabolism, cardiac hx, NATALIE as evidenced by A1C of 7.1, elev triglyceride 239, elev BNP 4671, elev creat (1.7->4.3 trend up), elev BUN (92 trend up), elev K (5.5, 5.8, 5.2), CURRENT DIET:npo PO DIET RECOMMENDATIONS: when appropriate for diet -> LOW K, LOW NA, CCHO MED (texture per SECURITY ATTENDANT) ENTERAL NUTRITION RECOMMENDATIONS: Nepro @ 37ml/hr x 24 hrs to provide 888ml, 1598kcal, 71g prot, 640ml free water * When medically appropriate, initiate NGT feeds * Rec Nepro given worsening renal fxn, + hyperkalemia. * Initiate Nepro @ 17ml/hr x 6hrs, advance 10ml q 4-6 hrs as tolerated to goal * HOB over 30 degrees/ water flush per MD ADDITIONAL RECOMMENDATIONS: 1) Calibrated bedscale wt 2) Rec NISS- A1C of 7.1 3) Monitor renal fxn and lytes: worsening renal fxn, elev K -> check phos 4) Wound healing: add Nephrovite x 1 Armand BID via NGT 5) Monitor NPO status: NGT feeds vs oral diet per SECURITY ATTENDANT
--- NOTE | 2019-12-18 13:41 | Diagnostic Imaging Report ---
Indication: Shortness of breath Technique: One view of the chest Comparison: 12/17/2019 Findings: The heart is enlarged. There is bilateral interstitial and airspace disease is again demonstrated, probably unchanged allowing for differences in degree of inspiration. Impression: Unchanged, over one day, findings as above.
--- NOTE | 2019-12-18 13:49 | NUR ---
NURSE NOTES: NG placement done, Patient tolerated well, KUB stat ordered
--- NOTE | 2019-12-18 15:01 | NUR ---
CASE MANAGEMENT:REVIEW 12/18/19 SI: COPD. BRONCHOSPASM. UTI AC/CHR RENAL FAILURE. AFIB CHANGE IN CONDITION...ALTERED..REFUSING TO EAT. TACHYCARDIC 99.0 104 18 157/79 97% ON 2L/NC WBC+11.1 H/H-8.7/27.7 K+5.5 BUN+92 CR+4.3 IS: OV PROTONIX Q24 IVF@100/HR IV MEROPENEM Q12 DIGOXIN PO QD CARDIZEM PO Q6HRS LOPRESSOR PO Q12 ELIQUIS PO BID ASA PO QD DEPAKOTE PO BID : TELEMETRY STATUS
[2019-12-18 16:00] VITALS: BP 127/57
--- NOTE | 2019-12-18 16:05 | NUR ---
NURSE NOTES: Patient has fever, unable to swallow Tylenol at this time, put ice pack under armpit and towel on forehead, will continue to monitor.
--- NOTE | 2019-12-18 16:08 | NUR ---
NURSE NOTES: Wound assessment done.
--- NOTE | 2019-12-18 16:41 | Diagnostic Imaging Report ---
Indication: Post nasogastric tube placement Technique: Supine view of the upper abdomen Comparison: none Findings: Nasogastric tube tip projects at at or just beyond the level of the gastric esophageal junction. The stomach is distended. The remainder of the bowel gas is unremarkable. There is lumbar scoliotic deformity. Impression: High position of nasogastric tube. Further advancement recommended. This finding was discussed by phone with patient's nurse at the time of interpretation
--- NOTE | 2019-12-18 18:01 | Diagnostic Imaging Report ---
EXAM: XR Abdomen, 2 Views CLINICAL HISTORY: NGT TECHNIQUE: Frontal view of the abdomen/pelvis with upright view of the abdomen. COMPARISON: No previous studies. FINDINGS: Lower thorax: Distended stomach. Cardiomegaly. Osteopenia. Intraperitoneal space: No free air. Gastrointestinal tract: Unremarkable. No dilation. Bones/joints: See above. Tubes, lines and devices: The NG tube is noted in place with its tip and side-port below the diaphragm. As a precautionary measure it is suggested at the NG tube be advanced approximately 3 cm forward. IMPRESSION: 1. The tip and side-port of NG tube is below the diaphragm. 2. Is a precautionary measure, it is suggested that the NG tube be advanced proximally 3 cm forward.
--- NOTE | 2019-12-18 19:10 | NUR ---
NURSE HAND-OFF REPORT: Important Events on Shift: NG Placemnt Patient Status: Weak Diet: NPO Pending Orders: KUB Pending Results/Labs:Morning labs Pending MD notification:NA Latest Vital Signs: Temperature 101.1 , Pulse 110 , B/P 127 /57 , Respiratory Rate 18 , O2 SAT 93 , Nasal Cannula, O2 Flow Rate 2.0 . Vital Sign Comment: Fever EKG Rhythm: Atrial Fibrillation Rhythm change?: N MD Notified?: Y -MD Gaviota UNDERWOOD Response: Latest Abreu Fall Score: 95 Fall Risk: High Risk Safety Measures: Call light Within Reach, Bed Alarm Zone 2, Side Rails Side Rails x3, Bed position Low and Locked. Fall Precautions: Yellow Socks Yellow Gown Door Sign Patient Fall Education Report given to Barbie/RN.
[2019-12-18 20:00] VITALS: BP 143/58
--- NOTE | 2019-12-18 20:00 | Diagnostic Imaging Report ---
EXAM: XR Abdomen, 2 Views CLINICAL HISTORY: NGT TECHNIQUE: Frontal view of the abdomen/pelvis with upright view of the abdomen. COMPARISON: Earlier study of 12/18/2019. FINDINGS: Lower thorax: Moderate left pleural effusion appeared Intraperitoneal space: No free air. Gastrointestinal tract: Unremarkable. No dilation. Organs: Bilateral renal calculi. Bones/joints: Osteopenia. Tubes, lines and devices: NG tube is noted in place in good position below the diaphragm. IMPRESSION: NG tube is noted in place and in good position.
--- NOTE | 2019-12-18 20:00 | NUR ---
NURSE NOTES: Received patient report from NOEL Fox. Patient is AO x0. She is agitated. Patient is on bilateral soft wrist restraints. There are no signs of skin breakdown. Patient has Lockett Catheter inserted. Patent and draining dark doretha urine. Patient also had NG tube inserted during dayshi Addendum: 12/18/19 at 2226 by Barbie Mae RN * dayshift. It has been noted to be draining dark coffee ground liquid. Dr. Dumont was called. Dr. Parker answered and he was informed, he ordered patient on Protonix drip and CBC. I also called Dr. Bui and left a message. Awaiting call back. Bed is in the lowest position, call light is within reach, side rails up x3. Will continue to monitor.
--- NOTE | 2019-12-18 21:09 | General Progress Note ---
Assessment/Plan Problem List: (1) Schizophrenia ICD Codes: F20.9 - Schizophrenia, unspecified SNOMED: 26662518 (2) GERD (gastroesophageal reflux disease) ICD Codes: K21.9 - Gastro-esophageal reflux disease without esophagitis SNOMED: 584750879 (3) Lymphadema (4) Smoker ICD Codes: F17.200 - Nicotine dependence, unspecified, uncomplicated SNOMED: 38299067 (5) Atrial fibrillation with rapid ventricular response ICD Codes: I48.91 - Unspecified atrial fibrillation SNOMED: 030355109183913 (6) CKD (chronic kidney disease) stage 3, GFR 30-59 ml/min ICD Codes: N18.3 - Chronic kidney disease, stage 3 (moderate) SNOMED: 537798952 (7) NATALIE (acute kidney injury) ICD Codes: N17.9 - Acute kidney failure, unspecified SNOMED: 3339055, 07684699 (8) COPD (chronic obstructive pulmonary disease) ICD Codes: J44.9 - Chronic obstructive pulmonary disease, unspecified SNOMED: 72752473 (9) UGI bleed ICD Codes: K92.2 - Gastrointestinal hemorrhage, unspecified SNOMED: 77003121 (10) Dysphagia ICD Codes: R13.10 - Dysphagia, unspecified SNOMED: 82535189, 233040487 (11) UTI (urinary tract infection) ICD Codes: N39.0 - Urinary tract infection, site not specified SNOMED: 91341657 (12) ESBL (extended spectrum beta-lactamase) producing bacteria infection ICD Codes: A49.9 - Bacterial infection, unspecified; Z16.12 - Extended spectrum beta lactamase (ESBL) resistance SNOMED: 330608685 (13) Dehydration ICD Codes: E86.0 - Dehydration SNOMED: 47243807 Status: stable Assessment/Plan: tele, , pulm care, PT eval, psych to see, placement, now worse natalie,prerenal place trivedi, I/O, update lab, hold diuretic , hydrate, coffee grounds in ng, iv protonix, rx esbl uti, remains high risk Subjective ROS Limited/Unobtainable: Yes Allergies: Coded Allergies: ERYTHROMYCIN BASE (Verified Allergy, Severe, 12/12/19) HALOPERIDOL (Verified Allergy, Unknown, 12/12/19) VANCOMYCIN (Unverified Adverse Reaction, Intermediate, Shortness of Breath , 12/12/19) Objective Last 24 Hour Vital Signs Date Time Temp Pulse Resp B/P (MAP) Pulse Ox O2 Delivery O2 Flow Rate FiO2 12/18/19 18:00 110 127/57 12/18/19 16:00 101.1 82 18 127/57 (80) 93 12/18/19 16:00 110 12/18/19 12:00 98.1 104 18 157/79 (105) 97 12/18/19 12:00 104 157/79 12/18/19 12:00 103 12/18/19 09:49 90 149/72 12/18/19 09:00 90 12/18/19 09:00 Nasal Cannula 2.0 12/18/19 08:00 83 12/18/19 08:00 99.0 90 18 149/72 (97) 94 12/18/19 06:01 101 134/70 12/18/19 04:00 97.9 100 26 134/70 (91) 95 12/18/19 04:00 101 12/18/19 00:49 103 138/65 12/18/19 00:00 101.0 103 30 138/65 (89) 97 12/18/19 00:00 98 12/17/19 22:02 99.5 12/17/19 21:32 104 131/72 Intake and Output 12/17/19 12/18/19 19:00 07:00 Intake Total 376.6 ml 858.3 ml Output Total 300 ml Balance 376.6 ml 558.3 ml Intake Oral 75 ml IV Total 301.6 ml 858.3 ml Output Urine Total 300 ml # Voids 1 Laboratory Tests 12/18/19 08:35: White Blood Count 11.1H, Red Blood Count 3.14L, Hemoglobin 8.7L, Hematocrit 27.7L, Mean Corpuscular Volume 88, Mean Corpuscular Hemoglobin 27.5, Mean Corpuscular Hemoglobin Concent 31.2L, Red Cell Distribution Width 16.8H, Platelet Count 160, Mean Platelet Volume 7.0, Neutrophils (%) (Auto) , Lymphocytes (%) (Auto) , Monocytes (%) (Auto) , Eosinophils (%) (Auto) , Basophils (%) (Auto) , Differential Total Cells Counted 100, Neutrophils % ( Manual) 90H, Lymphocytes % (Manual) 6L, Monocytes % (Manual) 3, Eosinophils % ( Manual) 0, Basophils % (Manual) 0, Band Neutrophils 1, Platelet Estimate Adequate, Platelet Morphology Normal, Polychromasia 1+, Hypochromasia 1+, Anisocytosis 1+, Sodium Level 149H, Potassium Level 5.5H, Chloride Level 109H, Carbon Dioxide Level 30, Anion Gap 10, Blood Urea Nitrogen 92H, Creatinine 4.3H , Estimat Glomerular Filtration Rate 10.2, Glucose Level 151H, Uric Acid 16.5H, Calcium Level 8.9, Total Bilirubin 0.9, Aspartate Amino Transf (AST/SGOT) 19, Alanine Aminotransferase (ALT/SGPT) 14, Alkaline Phosphatase 59, Total Creatine Kinase 178, Total Protein 6.8, Albumin 2.6L, Globulin 4.2, Albumin/Globulin Ratio 0.6L, Digoxin Level 2.9*H Height (Feet): 5 Height (Inches): 6.00 Weight (Pounds): 298 General Appearance: lethargic, confused, other - appears to hallucinate EENT: other - dry mouth Neck: normal alignment Cardiovascular: regularly irregular, tachycardia Respiratory/Chest: lungs clear, decreased breath sounds Abdomen: soft Edema: no edema noted Arm (L), no edema noted Arm (R), no edema noted Leg (L), no edema noted Leg (R), no edema noted Pedal (L), no edema noted Pedal (R), no edema noted Generalized Neurologic: disoriented, unresponsive Benjamin Dumont MD Dec 18, 2019 21:09
--- NOTE | 2019-12-18 21:52 | Cardiology Progress Note ---
Subjective DATE OF SERVICE: Dec 18, 2019 Still somnolent; unable to take oral meds Monitor: AFIb with rapid rates No SOB or hypoxia at rest, but febrile above 101. TSH 0.88; Dig 2.7 after IV dosing. Venous Duplex: negative for DVT Renal fxn and free water deficit worsening Objective Last 24 Hour Vital Signs Date Time Temp Pulse Resp B/P (MAP) Pulse Ox O2 Delivery O2 Flow Rate FiO2 12/18/19 21:25 95 143/58 12/18/19 18:00 110 127/57 12/18/19 16:00 101.1 82 18 127/57 (80) 93 12/18/19 16:00 110 12/18/19 12:00 98.1 104 18 157/79 (105) 97 12/18/19 12:00 104 157/79 12/18/19 12:00 103 12/18/19 09:49 90 149/72 12/18/19 09:00 90 12/18/19 09:00 Nasal Cannula 2.0 12/18/19 08:00 83 12/18/19 08:00 99.0 90 18 149/72 (97) 94 12/18/19 06:01 101 134/70 12/18/19 04:00 97.9 100 26 134/70 (91) 95 12/18/19 04:00 101 12/18/19 00:49 103 138/65 12/18/19 00:00 101.0 103 30 138/65 (89) 97 12/18/19 00:00 98 12/17/19 22:02 99.5 ROS: unchanged from 12/12/19 LUNGS: diminished breath sounds CARDIAC: normal S1 and S2, irregularly irregular ABDOMEN: other - obese EXTREMITIES: moderate edema - mostly non pitting Laboratory Tests Test 12/18/19 08:35 White Blood Count 11.1 K/UL (4.8-10.8) H Red Blood Count 3.14 M/UL (4.20-5.40) L Hemoglobin 8.7 G/DL (12.0-16.0) L Hematocrit 27.7 % (37.0-47.0) L Mean Corpuscular Volume 88 FL (80-99) Mean Corpuscular Hemoglobin 27.5 PG (27.0-31.0) Mean Corpuscular Hemoglobin Concent 31.2 G/DL (32.0-36.0) L Red Cell Distribution Width 16.8 % (11.6-14.8) H Platelet Count 160 K/UL (150-450) Mean Platelet Volume 7.0 FL (6.5-10.1) Neutrophils (%) (Auto) % (45.0-75.0) Lymphocytes (%) (Auto) % (20.0-45.0) Monocytes (%) (Auto) % (1.0-10.0) Eosinophils (%) (Auto) % (0.0-3.0) Basophils (%) (Auto) % (0.0-2.0) Differential Total Cells Counted 100 Neutrophils % (Manual) 90 % (45-75) H Lymphocytes % (Manual) 6 % (20-45) L Monocytes % (Manual) 3 % (1-10) Eosinophils % (Manual) 0 % (0-3) Basophils % (Manual) 0 % (0-2) Band Neutrophils 1 % (0-8) Platelet Estimate Adequate Platelet Morphology Normal Polychromasia 1+ Hypochromasia 1+ Anisocytosis 1+ Sodium Level 149 MMOL/L (136-145) H Potassium Level 5.5 MMOL/L (3.5-5.1) H Chloride Level 109 MMOL/L (98-107) H Carbon Dioxide Level 30 MMOL/L (21-32) Anion Gap 10 mmol/L (5-15) Blood Urea Nitrogen 92 mg/dL (7-18) H Creatinine 4.3 MG/DL (0.55-1.30) H Estimat Glomerular Filtration Rate 10.2 mL/min (>60) Glucose Level 151 MG/DL (74-106) H Uric Acid 16.5 MG/DL (2.6-7.2) H Calcium Level 8.9 MG/DL (8.5-10.1) Total Bilirubin 0.9 MG/DL (0.2-1.0) Aspartate Amino Transf (AST/SGOT) 19 U/L (15-37) Alanine Aminotransferase (ALT/SGPT) 14 U/L (12-78) Alkaline Phosphatase 59 U/L (46-116) Total Creatine Kinase 178 U/L (26-308) Total Protein 6.8 G/DL (6.4-8.2) Albumin 2.6 G/DL (3.4-5.0) L Globulin 4.2 g/dL Albumin/Globulin Ratio 0.6 (1.0-2.7) L Digoxin Level 2.9 NG/ML (0.9-2.0) *H Microbiology Date/Time Source Procedure Growth Status 12/17/19 20:45 Indwelling Cath Urine Culture - Preliminary NO GROWTH Resulted CHEST XRAY: 12/17: Bilat interstitial airspace disease Assessment/Plan Assessment/Plan AFiB with RVR CHF, ac/chr diast - compensated BLE edema UTI with sepsis obesity COPD with bronchospasm Acute renal failure - worsening Pleural effusion Antimicrobials Titrate rate control meds - hold digitalis for elevated level Eliquis at renal dosing Hypotonic IVF until po intake improves and free water deficit corrected. Continued satellite project site monitor Thorocentesis under consideration. Jerome Meek MD Dec 18, 2019 21:52
--- NOTE | 2019-12-18 22:28 | Psych Consult Progress Note ---
Psychiatry Progress Note Psychiatry Progress Note Subjective the pt is delusional moaning confused waxing and waning o consciousness Medications Current Medications Medications (Trade) Dose Ordered Sig/Shiraz Route PRN Reason Start Time Stop Time Status Last Admin Dose Admin Acetaminophen (Tylenol) 650 mg Q4H PRN ORAL Temp >100.5 12/12/19 22:15 01/11/20 22:14 12/17/19 04:13 Acetaminophen (Tylenol) 650 mg Q4H PRN ORAL Mild Pain (Pain Scale 1-3) 12/12/19 22:15 01/11/20 22:14 12/18/19 21:26 Apixaban (Eliquis) 5 mg BID ORAL 12/13/19 18:00 03/12/20 17:59 12/18/19 09:49 Aspirin (ASA) 81 mg DAILY ORAL 12/13/19 09:00 01/27/20 08:59 12/18/19 09:48 Bacitracin (Bacitracin 15gm tube) 1 applic BID TOPIC 12/18/19 18:00 03/12/20 08:59 12/18/19 18:00 Barium Sulfate (Varibar Honey) 250 ml NOW PRN MC RAD 12/17/19 14:00 12/20/19 13:54 Barium Sulfate (Varibar [place]) 240 ml NOW PRN MC RAD 12/17/19 14:00 12/20/19 13:54 Barium Sulfate (Varibar Pudding) 230 ml NOW PRN MC RAD 12/17/19 14:00 12/20/19 13:54 Barium Sulfate (Varibar Thin Liquid powder) 148 gm NOW PRN MC RAD 12/17/19 14:00 12/20/19 13:54 Clotrimazole (Lotrimin) 1 applic TWICE A DAY TOPIC 12/18/19 18:00 03/12/20 08:59 12/18/19 18:00 Dextrose (Dextrose 50%) 25 ml Q30M PRN IV Hypoglycemia 12/12/19 22:15 03/11/20 22:14 Dextrose (Dextrose 50%) 50 ml Q30M PRN IV Hypoglycemia 12/12/19 22:15 03/11/20 22:14 Digoxin (Lanoxin) 0.125 mg DAILY ORAL 12/16/19 09:00 03/15/20 08:59 12/17/19 09:40 Diltiazem HCl (Cardizem Tab) 90 mg Q6HR ORAL 12/14/19 12:00 01/13/20 11:59 12/18/19 06:01 Diphenhydramine HCl (Benadryl) 50 mg Q6H PRN IVP Itching 12/15/19 23:30 01/14/20 23:29 12/16/19 00:06 Divalproex Sodium (Depakote) 500 mg BID ORAL 12/12/19 23:00 01/11/20 22:59 12/18/19 09:50 Docusate Sodium (Colace) 200 mg TWICE A DAY ORAL 12/13/19 09:00 01/12/20 08:59 12/18/19 09:48 Famotidine (Pepcid) 10 mg DAILY ORAL 12/13/19 09:00 03/12/20 08:59 12/18/19 09:49 Levalbuterol HCl (Xopenex) 1.25 mg TIDPRN PRN HHN sob 12/14/19 12:30 12/19/19 12:29 Magnesium Hydroxide (Mom) 30 ml HSPRN PRN ORAL Constipation 12/12/19 22:15 01/11/20 22:14 Meropenem 500 mg/ Sodium Chloride 55 ml @ 110 mls/hr Q12H IVPB 12/16/19 16:00 12/21/19 15:59 12/18/19 16:14 Metoprolol Tartrate (Lopressor) 25 mg Q12HR ORAL 12/13/19 21:00 03/12/20 20:59 12/18/19 21:25 Nitroglycerin (Ntg) 0.4 mg Q5M PRN SL Prn Chest Pain 12/12/19 22:15 01/11/20 22:14 Ondansetron HCl (Zofran) 4 mg Q6H PRN IVP Nausea & Vomiting 12/12/19 22:15 01/11/20 22:14 12/13/19 02:56 Pantoprazole 80 mg/Sodium Chloride 250 ml @ 25 mls/hr Q10H IV 12/18/19 22:30 01/17/20 22:29 Risperidone (RisperDAL) 4 mg QHS ORAL 12/16/19 21:00 01/30/20 20:59 12/18/19 21:25 Sodium Chloride 1,000 ml @ 150 mls/hr Q6H40M IV 12/18/19 22:00 01/17/20 21:59 Neurological/Psychiatric: Reports: anxiety, depressed, emotional problems Allergies: Coded Allergies: ERYTHROMYCIN BASE (Verified Allergy, Severe, 12/12/19) HALOPERIDOL (Verified Allergy, Unknown, 12/12/19) VANCOMYCIN (Unverified Adverse Reaction, Intermediate, Shortness of Breath , 12/12/19) Objective Data Height (Feet): 5 Height (Inches): 6.00 Weight (Pounds): 298 General Appearance: lethargic, confused, other - appears to hallucinate Additional Comments: confused. Mood is agitated. Affect is flat. Thought process, there is a paucity of thought content. Thought content, no suicidal or homicidal ideation. Cognition is impaired. Insight and judgment is impaired. Assessment/Plan Problem List: (1) Schizophrenia Status: stable Assessment/Plan: dc psychotropics pt with gi bleed and kid failure Harris Ballesteros MD Dec 18, 2019 22:28
[2019-12-18] MEDS ORDERED: Haloperidol 5mg/ml Inj IM PRN (22:30)
[2019-12-18] MEDS: Pantoprazole 80 MG in NS 250 ML IV SCH (22:48)
[2019-12-19] VITALS: BP 148/87
[2019-12-19 01:13] LABS: HEMATOCRIT 24.3 % (37.0-47.0); HEMOGLOBIN 7.6 G/DL (12.0-16.0); MEAN CORPUSCULAR VOLUME 88 FL (80-99); PLATELET COUNT 139 K/UL (150-450); RED BLOOD COUNT 2.76 M/UL (4.20-5.40); RED CELL DISTRIBUTION WIDTH 16.5 % (11.6-14.8)
--- NOTE | 2019-12-19 01:38 | Cardiology Report ---
APPROVED REPORT EKG Measurement Heart [id number] QT0T0 QTc0 <Conclusion> No QRS complexes found, no ECG analysis possible
--- NOTE | 2019-12-19 01:57 | Cardiology Report ---
APPROVED REPORT EKG Measurement Heart [id number] QT0T0 QTc0 <Conclusion> No QRS complexes found, no ECG analysis possible
[2019-12-19 04:00] VITALS: BP 144/82
[2019-12-19] MEDS: Meropenem 500mg in NS 55ml IVPB SCH (04:59)
[2019-12-19] MEDS: dilTIAZem HCl 90mg tab ORAL SCH ×4 (05:52→18:28)
[2019-12-19 06:11] LABS: HEMATOCRIT 25.2 % (37.0-47.0); HEMOGLOBIN 7.8 G/DL (12.0-16.0); MEAN CORPUSCULAR VOLUME 89 FL (80-99); PLATELET COUNT 137 K/UL (150-450); RED BLOOD COUNT 2.85 M/UL (4.20-5.40); RED CELL DISTRIBUTION WIDTH 16.7 % (11.6-14.8)
[2019-12-19 06:38] LABS: ANION GAP 9 mmol/L (5-15); BLOOD UREA NITROGEN 94 mg/dL (7-18); CALCIUM 8.7 MG/DL (8.5-10.1); CARBON DIOXIDE 30 MMOL/L (21-32); CHLORIDE 110 MMOL/L (98-107); CREATININE 3.2 MG/DL (0.55-1.30); POTASSIUM 4.9 MMOL/L (3.5-5.1); SODIUM 149 MMOL/L (136-145)
--- NOTE | 2019-12-19 07:06 | NUR ---
NURSE HAND-OFF REPORT: Important Events on Shift:[Hemoglobin 7.8. Coffee ground emesis coming from NG tube. Dr. Hdez informed] Patient Status: [Full code] Diet: [NPO] Pending Orders: [Chest x ray] Pending Results/Labs:[NA] Pending MD notification:[Hemoglobin level endorsed to day shift] Latest Vital Signs: Temperature 100.8 , Pulse 100 , B/P 144 /82 , Respiratory Rate 24 , O2 SAT 93 , Nasal Cannula, O2 Flow Rate 2.0 . Vital Sign Comment: [NA] EKG Rhythm: Atrial Fibrillation Rhythm change?: N MD Notified?: Y ERIC Meek MD Response: Latest Abreu Fall Score: 95 Fall Risk: High Risk Safety Measures: Call light Within Reach, Bed Alarm Zone 2, Side Rails Side Rails x3, Bed position Low and Locked. Fall Precautions: Yellow Socks Yellow Gown Door Sign Patient Fall Education Report given to [NOEL Fox].
--- NOTE | 2019-12-19 07:28 | NUR ---
NURSE NOTES: Received report from Barbie/RN, Observed patient closed eyes and Moaning, Lying semi-walden's. unable to respond to what's wrong. On 2L nasal canula, no acute distress/SOB noted. IV site patent and intact, 1/2 NS running at 100cc/hr. Ice pack on knee and under armpit noted. Lockett draining well to gravity. Coffee ground emesis coming out of NG-tube. Per night nurse MD is aware. Bed in low position and locked, side rails up x3, Call light within reach, Encouraged to use call light when needed. Restraint on bilateral wrist for safety. Will continue plan of care.
[2019-12-19 08:00] VITALS: BP 136/70
[2019-12-19] MEDS: Digoxin 0.125mg tab ORAL SCH (09:00)
--- NOTE | 2019-12-19 09:15 | NUR ---
PT NOTE Attempted to see patient for PT treatment. Approached patient, patient sleeping, able to wake patient however patient unable to follow commands, began to moan loudly. Patient unable to participate with PT at this time, Dominique RN notified, will follow.
[2019-12-19] MEDS: Pantoprazole 80 MG in NS 250 ML IV SCH (09:23)
[2019-12-19] MEDS: Eliquis 5mg tablet ORAL SCH ×2 (09:23→18:28)
[2019-12-19] MEDS: Aspirin Baby 81mg ORAL SCH (09:23)
[2019-12-19] MEDS: Bacitracin Oint 15gm Tube TOPIC SCH ×2 (09:24→18:28)
[2019-12-19] MEDS: Docusate 100mg cap ORAL SCH (09:24)
--- NOTE | 2019-12-19 09:45 | NUR ---
NURSE NOTES: Patient has bruises on bilateral knees, Ice pack placed, and elevated with pillow.
--- NOTE | 2019-12-19 09:59 | NUR ---
NURSE NOTES: Patient has coffee ground emesis coming out of NG-tube, Eliquis was given per Dr. Meek order. Digoxin was held because of high Digoxin level also per Dr. Meek order.
--- NOTE | 2019-12-19 10:04 | General Progress Note ---
Assessment/Plan Problem List: (1) CKD (chronic kidney disease) stage 3, GFR 30-59 ml/min ICD Codes: N18.3 - Chronic kidney disease, stage 3 (moderate) SNOMED: 850317901 (2) COPD (chronic obstructive pulmonary disease) ICD Codes: J44.9 - Chronic obstructive pulmonary disease, unspecified SNOMED: 83646700 (3) Smoker ICD Codes: F17.200 - Nicotine dependence, unspecified, uncomplicated SNOMED: 35193119 (4) GERD (gastroesophageal reflux disease) ICD Codes: K21.9 - Gastro-esophageal reflux disease without esophagitis SNOMED: 028979086 (5) Atrial fibrillation with RVR ICD Codes: I48.91 - Unspecified atrial fibrillation SNOMED: 438852376246901 Status: stable Assessment/Plan: s/p ngt placement ppi bid fu H&H monitor labs bowel regimen pending thoracentesis needs cardiac clearance [facility] GI procedures>> not clear for now on Eliquis Subjective ROS Limited/Unobtainable: No Allergies: Coded Allergies: ERYTHROMYCIN BASE (Verified Allergy, Severe, 12/12/19) HALOPERIDOL (Verified Allergy, Unknown, 12/12/19) VANCOMYCIN (Unverified Adverse Reaction, Intermediate, Shortness of Breath , 12/12/19) Objective Last 24 Hour Vital Signs Date Time Temp Pulse Resp B/P (MAP) Pulse Ox O2 Delivery O2 Flow Rate FiO2 12/19/19 09:24 106 136/70 12/19/19 09:00 106 12/19/19 08:00 100.0 106 24 136/70 (92) 97 12/19/19 05:52 100 144/82 12/19/19 04:00 103 12/19/19 04:00 100.8 100 24 144/82 (102) 93 12/19/19 00:00 104 148/87 12/19/19 00:00 100.6 104 30 148/87 (107) 92 12/19/19 00:00 106 12/18/19 21:56 101.5 12/18/19 21:25 95 143/58 12/18/19 21:00 Nasal Cannula 2.0 12/18/19 20:00 107 12/18/19 20:00 103.3 95 28 143/58 (86) 93 12/18/19 19:05 94 Venturi Mask 4.0 31 12/18/19 18:00 110 127/57 12/18/19 16:00 101.1 82 18 127/57 (80) 93 12/18/19 16:00 110 12/18/19 12:00 98.1 104 18 157/79 (105) 97 12/18/19 12:00 104 157/79 12/18/19 12:00 103 Intake and Output 12/18/19 12/19/19 19:00 07:00 Intake Total 1250 ml 1035 ml Output Total 500 ml 750 ml Balance 750 ml 285 ml IV Total 1250 ml 1035 ml Output Urine Total 500 ml 750 ml Laboratory Tests 12/19/19 00:34: White Blood Count 7.0, Red Blood Count 2.76L, Hemoglobin 7.6L, Hematocrit 24.3L , Mean Corpuscular Volume 88, Mean Corpuscular Hemoglobin 27.6, Mean Corpuscular Hemoglobin Concent 31.4L, Red Cell Distribution Width 16.5H, Platelet Count 139L, Mean Platelet Volume 6.9, Neutrophils (%) (Auto) , Lymphocytes (%) (Auto) , Monocytes (%) (Auto) , Eosinophils (%) (Auto) , Basophils (%) (Auto) 12/19/19 04:20: White Blood Count 7.0, Red Blood Count 2.85L, Hemoglobin 7.8L, Hematocrit 25.2L , Mean Corpuscular Volume 89, Mean Corpuscular Hemoglobin 27.3, Mean Corpuscular Hemoglobin Concent 30.7L, Red Cell Distribution Width 16.7H, Platelet Count 137L, Mean Platelet Volume 6.7, Neutrophils (%) (Auto) , Lymphocytes (%) (Auto) , Monocytes (%) (Auto) , Eosinophils (%) (Auto) , Basophils (%) (Auto) , Differential Total Cells Counted 100, Neutrophils % ( Manual) 91H, Lymphocytes % (Manual) 3L, Monocytes % (Manual) 6, Eosinophils % ( Manual) 0, Basophils % (Manual) 0, Band Neutrophils 0, Nucleated Red Blood Cells 1, Platelet Estimate DecreasedL, Platelet Morphology Normal, Anisocytosis 1+, Sodium Level 149H, Potassium Level 4.9, Chloride Level 110H, Carbon Dioxide Level 30, Anion Gap 9, Blood Urea Nitrogen 94H, Creatinine 3.2H, Estimat Glomerular Filtration Rate 14.5, Glucose Level 106, Calcium Level 8.7, Digoxin Level 2.4H Height (Feet): 5 Height (Inches): 6.00 Weight (Pounds): 298 General Appearance: no apparent distress EENT: normal ENT inspection Neck: supple Cardiovascular: normal rate Respiratory/Chest: decreased breath sounds Abdomen: normal bowel sounds, non tender, soft Extremities: non-tender Mervin Victoria MD Dec 19, 2019 10:04
[2019-12-19 12:00] VITALS: BP 115/53
--- NOTE | 2019-12-19 14:30 | NUR ---
NURSE NOTES: Patient Is tachypnea 32, moaning, coffee ground emesis coming out of NG-tube, Dr. Dumont aware. No new order at this time.
--- NOTE | 2019-12-19 14:49 | Infectious Diseases Prog Note ---
Assessment/Plan Assessment/Plan ASSESSMENT AND PLAN: 1. esbl e.coli uti/pyelonephritis, ? aspiration pna/hcap, sepsis, leukocytosis, fevers mrsa and vre colonization, NATALIE, + risk for mrsa pna with colonization - zyvox and meropenem - f/u on cultures, labs and chest x-ray - will f/u 2. Chronic kidney failure, acute renal failure. 3. COPD. 4. Pulmonary followup. 5. Renal followup. 6. History of falls. 7. Atrial fibrillation. Cardiology followup. 8. Obesity. 9. Gait disorder. 10. Schizophrenia. 11. Homeless. 12. Allergic to erythromycin, haloperidol, and vancomycin. 13. Social history is negative. 14. Family history is noncontributory. 15. MAR is noted. 16. Case discussed with RN. 17. Continue treatment per Dr. Dumont and consultants. Subjective Constitutional: Reports: fever, fatigue, other - more alert HEENT: Reports: congestion - mild Respiratory: Reports: shortness of breath - mild Cardiovascular: Denies: chest pain Gastrointestinal/Abdominal: Denies: nausea, vomiting, diarrhea Genitourinary: Reports: other - + trivedi Neurologic: Reports: other - more alert Psychiatric: Reports: depression, other - NA Skin: Denies: rash Hematologic: Denies: bleeding Musculoskeletal: Denies: pain Allergies: Coded Allergies: ERYTHROMYCIN BASE (Verified Allergy, Severe, 12/12/19) HALOPERIDOL (Verified Allergy, Unknown, 12/12/19) VANCOMYCIN (Unverified Adverse Reaction, Intermediate, Shortness of Breath , 12/12/19) Objective Last 24 Hour Vital Signs Date Time Temp Pulse Resp B/P (MAP) Pulse Ox O2 Delivery O2 Flow Rate FiO2 12/19/19 12:42 95 Venturi Mask 4.0 31 12/19/19 12:01 115 115/53 12/19/19 12:00 99.5 115 32 115/53 (73) 96 12/19/19 12:00 110 12/19/19 09:24 106 136/70 12/19/19 09:00 106 12/19/19 09:00 Nasal Cannula 2.0 12/19/19 08:00 100.0 106 24 136/70 (92) 97 12/19/19 08:00 112 12/19/19 05:52 100 144/82 12/19/19 04:00 103 12/19/19 04:00 100.8 100 24 144/82 (102) 93 12/19/19 00:00 104 148/87 12/19/19 00:00 100.6 104 30 148/87 (107) 92 12/19/19 00:00 106 12/18/19 21:56 101.5 12/18/19 21:25 95 143/58 12/18/19 21:00 Nasal Cannula 2.0 12/18/19 20:00 107 12/18/19 20:00 103.3 95 28 143/58 (86) 93 12/18/19 19:05 94 Venturi Mask 4.0 31 12/18/19 18:00 110 127/57 12/18/19 16:00 101.1 82 18 127/57 (80) 93 12/18/19 16:00 110 Height (Feet): 5 Height (Inches): 6.00 Weight (Pounds): 298 General Appearance: no acute distress HEENT: normocephalic, atraumatic, anicteric, mucous membranes moist Respiratory/Chest: crackles/rales, rhonchi - bilaterally Cardiovascular: normal rate, regular rhythm, no gallop/murmur, no JVD Abdomen: normal bowel sounds, soft, non tender, no organomegaly Genitourinary: other - + trivedi - urine cloudy Extremities: no cyanosis Skin: no rash Neurologic/Psychiatric: flexographic press operator II-XII grossly normal, alert, responsive Lymphatic: no neck adenopathy Musculoskeletal: no effusion Chest x-ray - 11/17/19 - Procedure: XRAY Chest 1v Indication: Shortness of breath Technique: One view of the chest Comparison: 12/17/2019 Findings: The heart is enlarged. There is bilateral interstitial and airspace disease is again demonstrated, probably unchanged allowing for differences in degree of inspiration. Impression: Unchanged, over one day, findings as above. Microbiology Date/Time Source Procedure Growth Status 12/17/19 16:00 Blood Blood Culture - Preliminary NO GROWTH AFTER 24 HOURS Resulted 12/12/19 21:00 Nasal Nares MRSA Culture - Final Staphylococcus Aureus - Mrsa Complete 12/17/19 20:45 Indwelling Cath Urine Culture - Preliminary Resulted 12/12/19 21:00 Rectum - Final NO CARBAPENEM-RESISTANT ENTEROBACTERI... Complete Microbiology Date/Time Source Procedure Growth Status 12/17/19 16:00 Blood Blood Culture - Preliminary NO GROWTH AFTER 24 HOURS Resulted 12/17/19 15:45 Blood Blood Culture - Preliminary NO GROWTH AFTER 24 HOURS Resulted 12/17/19 20:45 Indwelling Cath Urine Culture - Preliminary Resulted Laboratory Tests Test 12/19/19 00:34 12/19/19 04:20 White Blood Count 7.0 K/UL (4.8-10.8) 7.0 K/UL (4.8-10.8) Red Blood Count 2.76 M/UL (4.20-5.40) L 2.85 M/UL (4.20-5.40) L Hemoglobin 7.6 G/DL (12.0-16.0) L 7.8 G/DL (12.0-16.0) L Hematocrit 24.3 % (37.0-47.0) L 25.2 % (37.0-47.0) L Mean Corpuscular Volume 88 FL (80-99) 89 FL (80-99) Mean Corpuscular Hemoglobin 27.6 PG (27.0-31.0) 27.3 PG (27.0-31.0) Mean Corpuscular Hemoglobin Concent 31.4 G/DL (32.0-36.0) L 30.7 G/DL (32.0-36.0) L Red Cell Distribution Width 16.5 % (11.6-14.8) H 16.7 % (11.6-14.8) H Platelet Count 139 K/UL (150-450) L 137 K/UL (150-450) L Mean Platelet Volume 6.9 FL (6.5-10.1) 6.7 FL (6.5-10.1) Neutrophils (%) (Auto) % (45.0-75.0) % (45.0-75.0) Lymphocytes (%) (Auto) % (20.0-45.0) % (20.0-45.0) Monocytes (%) (Auto) % (1.0-10.0) % (1.0-10.0) Eosinophils (%) (Auto) % (0.0-3.0) % (0.0-3.0) Basophils (%) (Auto) % (0.0-2.0) % (0.0-2.0) Differential Total Cells Counted 100 Neutrophils % (Manual) 91 % (45-75) H Lymphocytes % (Manual) 3 % (20-45) L Monocytes % (Manual) 6 % (1-10) Eosinophils % (Manual) 0 % (0-3) Basophils % (Manual) 0 % (0-2) Band Neutrophils 0 % (0-8) Nucleated Red Blood Cells 1 /100 WBC Platelet Estimate Decreased L Platelet Morphology Normal Anisocytosis 1+ Sodium Level 149 MMOL/L (136-145) H Potassium Level 4.9 MMOL/L (3.5-5.1) Chloride Level 110 MMOL/L (98-107) H Carbon Dioxide Level 30 MMOL/L (21-32) Anion Gap 9 mmol/L (5-15) Blood Urea Nitrogen 94 mg/dL (7-18) H Creatinine 3.2 MG/DL (0.55-1.30) H Estimat Glomerular Filtration Rate 14.5 mL/min (>60) Glucose Level 106 MG/DL (74-106) Calcium Level 8.7 MG/DL (8.5-10.1) Digoxin Level 2.4 NG/ML (0.9-2.0) H Current Medications Medications (Trade) Dose Ordered Sig/Shiraz Route PRN Reason Start Time Stop Time Status Last Admin Dose Admin Acetaminophen (Tylenol) 650 mg Q4H PRN ORAL Temp >100.5 12/12/19 22:15 01/11/20 22:14 12/17/19 04:13 Acetaminophen (Tylenol) 650 mg Q4H PRN ORAL Mild Pain (Pain Scale 1-3) 12/12/19 22:15 01/11/20 22:14 12/18/19 21:26 Apixaban (Eliquis) 5 mg BID ORAL 12/13/19 18:00 03/12/20 17:59 12/19/19 09:23 Aspirin (ASA) 81 mg DAILY ORAL 12/13/19 09:00 01/27/20 08:59 12/19/19 09:23 Bacitracin (Bacitracin 15gm tube) 1 applic BID TOPIC 12/18/19 18:00 03/12/20 08:59 12/19/19 09:24 Barium Sulfate (Varibar Honey) 250 ml NOW PRN MC RAD 12/17/19 14:00 12/20/19 13:54 Barium Sulfate (Varibar [place]) 240 ml NOW PRN MC RAD 12/17/19 14:00 12/20/19 13:54 Barium Sulfate (Varibar Pudding) 230 ml NOW PRN RAD 12/17/19 14:00 12/20/19 13:54 Barium Sulfate (Varibar Thin Liquid powder) 148 gm NOW PRN RAD 12/17/19 14:00 12/20/19 13:54 Clotrimazole (Lotrimin) 1 applic TWICE A DAY TOPIC 12/18/19 18:00 03/12/20 08:59 12/19/19 09:24 Dextrose (Dextrose 50%) 25 ml Q30M PRN IV Hypoglycemia 12/12/19 22:15 03/11/20 22:14 Dextrose (Dextrose 50%) 50 ml Q30M PRN IV Hypoglycemia 12/12/19 22:15 03/11/20 22:14 Digoxin (Lanoxin) 0.125 mg DAILY ORAL 12/16/19 09:00 03/15/20 08:59 12/17/19 09:40 Diltiazem HCl (Cardizem Tab) 90 mg Q6HR ORAL 12/14/19 12:00 01/13/20 11:59 12/19/19 12:01 Docusate Sodium (Colace) 100 mg TWICE A DAY ORAL 12/19/19 18:00 01/18/20 17:59 Famotidine (Pepcid) 10 mg DAILY ORAL 12/13/19 09:00 03/12/20 08:59 12/19/19 09:24 Haloperidol Lactate (Haldol) 5 mg Q6H PRN IM Agitation 12/18/19 22:30 02/01/20 22:29 Magnesium Hydroxide (Mom) 30 ml HSPRN PRN ORAL Constipation 12/12/19 22:15 01/11/20 22:14 Meropenem 500 mg/ Sodium Chloride 55 ml @ 110 mls/hr Q12H IVPB 12/16/19 16:00 12/21/19 15:59 12/19/19 04:59 Metoprolol Tartrate (Lopressor) 25 mg Q12HR ORAL 12/13/19 21:00 03/12/20 20:59 12/19/19 09:24 Nitroglycerin (Ntg) 0.4 mg Q5M PRN SL Prn Chest Pain 12/12/19 22:15 01/11/20 22:14 Ondansetron HCl (Zofran) 4 mg Q6H PRN IVP Nausea & Vomiting 12/12/19 22:15 01/11/20 22:14 12/13/19 02:56 Pantoprazole (Protonix) 40 mg EVERY 12 HOURS IVP 12/19/19 21:00 01/18/20 20:59 Polyethylene Glycol (Miralax) 17 gm BEDTIME ORAL 12/19/19 21:00 01/18/20 20:59 Sodium Chloride 1,000 ml @ 150 mls/hr Q6H40M IV 12/18/19 22:00 01/17/20 21:59 12/19/19 12:02 Aleisha Coronel MD Dec 19, 2019 14:49
--- NOTE | 2019-12-19 15:50 | NUR ---
NURSE NOTES: Received pain medication order from Dr. Ballesteros, and carried out order.
--- NOTE | 2019-12-19 15:55 | Diagnostic Imaging Report ---
Indication: Shortness of breath Technique: One view of the chest Comparison: 12/18/2019 Findings: Heart is enlarged. There is bilateral interstitial and airspace edema and some perihilar atelectasis on the left. There is interim placement of a nasogastric tube. Tip projects beyond the edge of the image. Impression: Interim nasogastric tube placement. Otherwise little pipe changer one day
[2019-12-19 16:00] VITALS: BP 139/49
[2019-12-19] MEDS ORDERED: Morphine Sulfate 2mg/ml Inj(IV/IM USE ONLY) IVP PRN ×2 (16:00→22:15)
--- NOTE | 2019-12-19 16:32 | NUR ---
NURSE NOTES: Stat ABG's and Stat BMP order received from Luz Bowen. Order carried out.
[2019-12-19] MEDS: Meropenem 500 MG in NS 55 ML IVPB SCH (16:52)
--- NOTE | 2019-12-19 17:07 | Pulmonology Progress Note ---
Luz Bowen TECHNOLOGY EDUCATION TEACHER 12/19/19 1707: Subjective ROS Limited/Unobtainable: Yes Allergies: Coded Allergies: ERYTHROMYCIN BASE (Verified Allergy, Severe, 12/12/19) HALOPERIDOL (Verified Allergy, Unknown, 12/12/19) VANCOMYCIN (Unverified Adverse Reaction, Intermediate, Shortness of Breath , 12/12/19) Subjective on O2 via VM , low grade fever this am CXR with bilateral interstitial and airspace edema and some perihilar atelectasis on the left. creat started to trend down Objective Last 24 Hour Vital Signs Date Time Temp Pulse Resp B/P (MAP) Pulse Ox O2 Delivery O2 Flow Rate FiO2 12/19/19 12:42 95 Venturi Mask 4.0 31 12/19/19 12:01 115 115/53 12/19/19 12:00 99.5 115 32 115/53 (73) 96 12/19/19 12:00 110 12/19/19 09:24 106 136/70 12/19/19 09:00 106 12/19/19 09:00 Nasal Cannula 2.0 12/19/19 08:00 100.0 106 24 136/70 (92) 97 12/19/19 08:00 112 12/19/19 05:52 100 144/82 12/19/19 04:00 103 12/19/19 04:00 100.8 100 24 144/82 (102) 93 12/19/19 00:00 104 148/87 12/19/19 00:00 100.6 104 30 148/87 (107) 92 12/19/19 00:00 106 12/18/19 21:56 101.5 12/18/19 21:25 95 143/58 12/18/19 21:00 Nasal Cannula 2.0 12/18/19 20:00 107 12/18/19 20:00 103.3 95 28 143/58 (86) 93 12/18/19 19:05 94 Venturi Mask 4.0 31 12/18/19 18:00 110 127/57 Intake and Output 12/18/19 12/19/19 19:00 07:00 Intake Total 1250 ml 1035 ml Output Total 500 ml 750 ml Balance 750 ml 285 ml IV Total 1250 ml 1035 ml Output Urine Total 500 ml 750 ml Objective General Appearance: morbidly obese now poorly responsive female in NAD Lines, tubes and drains: peripheral HEENT: normocephalic, atraumatic, anicteric, NGT in Neck: non-tender Respiratory/Chest: chest wall non-tender, no accessory muscle use, decreased breath sounds Cardiovascular/Chest: irregularly irregular - A fib , rate overall controlled now , distant heart sounds Abdomen: normal bowel sounds, non tender , obese, soft Extremities: no calf tenderness, moderate edema - +2 BLE, R knee with large hematoma, edema, warm to touch Skin Exam: warm/dry, multiple tattoos Neurologic: abnormal gait - w/chair bound , alert, responsive, anxious Musculoskeletal: normal muscle bulk Microbiology Date/Time Source Procedure Growth Status 12/17/19 16:00 Blood Blood Culture - Preliminary NO GROWTH AFTER 24 HOURS Resulted 12/17/19 15:45 Blood Blood Culture - Preliminary NO GROWTH AFTER 24 HOURS Resulted 12/17/19 20:45 Indwelling Cath Urine Culture - Preliminary Resulted Laboratory Tests 12/19/19 00:34: White Blood Count 7.0, Red Blood Count 2.76L, Hemoglobin 7.6L, Hematocrit 24.3L , Mean Corpuscular Volume 88, Mean Corpuscular Hemoglobin 27.6, Mean Corpuscular Hemoglobin Concent 31.4L, Red Cell Distribution Width 16.5H, Platelet Count 139L, Mean Platelet Volume 6.9, Neutrophils (%) (Auto) , Lymphocytes (%) (Auto) , Monocytes (%) (Auto) , Eosinophils (%) (Auto) , Basophils (%) (Auto) 12/19/19 04:20: White Blood Count 7.0, Red Blood Count 2.85L, Hemoglobin 7.8L, Hematocrit 25.2L , Mean Corpuscular Volume 89, Mean Corpuscular Hemoglobin 27.3, Mean Corpuscular Hemoglobin Concent 30.7L, Red Cell Distribution Width 16.7H, Platelet Count 137L, Mean Platelet Volume 6.7, Neutrophils (%) (Auto) , Lymphocytes (%) (Auto) , Monocytes (%) (Auto) , Eosinophils (%) (Auto) , Basophils (%) (Auto) , Differential Total Cells Counted 100, Neutrophils % ( Manual) 91H, Lymphocytes % (Manual) 3L, Monocytes % (Manual) 6, Eosinophils % ( Manual) 0, Basophils % (Manual) 0, Band Neutrophils 0, Nucleated Red Blood Cells 1, Platelet Estimate DecreasedL, Platelet Morphology Normal, Anisocytosis 1+, Sodium Level 149H, Potassium Level 4.9, Chloride Level 110H, Carbon Dioxide Level 30, Anion Gap 9, Blood Urea Nitrogen 94H, Creatinine 3.2H, Estimat Glomerular Filtration Rate 14.5, Glucose Level 106, Calcium Level 8.7, Digoxin Level 2.4H Current Medications Medications (Trade) Dose Ordered Sig/Shiraz Route PRN Reason Start Time Stop Time Status Last Admin Dose Admin Acetaminophen (Tylenol) 650 mg Q4H PRN ORAL Temp >100.5 12/12/19 22:15 01/11/20 22:14 12/17/19 04:13 Acetaminophen (Tylenol) 650 mg Q4H PRN ORAL Mild Pain (Pain Scale 1-3) 12/12/19 22:15 01/11/20 22:14 12/18/19 21:26 Apixaban (Eliquis) 5 mg BID ORAL 12/13/19 18:00 03/12/20 17:59 12/19/19 09:23 Aspirin (ASA) 81 mg DAILY ORAL 12/13/19 09:00 01/27/20 08:59 12/19/19 09:23 Bacitracin (Bacitracin 15gm tube) 1 applic BID TOPIC 12/18/19 18:00 03/12/20 08:59 12/19/19 09:24 Barium Sulfate (Varibar Honey) 250 ml NOW PRN MC RAD 12/17/19 14:00 12/20/19 13:54 Barium Sulfate (Varibar [place]) 240 ml NOW PRN MC RAD 12/17/19 14:00 12/20/19 13:54 Barium Sulfate (Varibar Pudding) 230 ml NOW PRN MC RAD 12/17/19 14:00 12/20/19 13:54 Barium Sulfate (Varibar Thin Liquid powder) 148 gm NOW PRN MC RAD 12/17/19 14:00 12/20/19 13:54 Clotrimazole (Lotrimin) 1 applic TWICE A DAY TOPIC 12/18/19 18:00 03/12/20 08:59 12/19/19 09:24 Dextrose (Dextrose 50%) 25 ml Q30M PRN IV Hypoglycemia 12/12/19 22:15 03/11/20 22:14 Dextrose (Dextrose 50%) 50 ml Q30M PRN IV Hypoglycemia 12/12/19 22:15 03/11/20 22:14 Digoxin (Lanoxin) 0.125 mg DAILY ORAL 12/16/19 09:00 03/15/20 08:59 12/17/19 09:40 Diltiazem HCl (Cardizem Tab) 90 mg Q6HR ORAL 12/14/19 12:00 01/13/20 11:59 12/19/19 12:01 Docusate Sodium (Colace) 100 mg TWICE A DAY ORAL 12/19/19 18:00 01/18/20 17:59 Famotidine (Pepcid) 10 mg DAILY ORAL 12/13/19 09:00 03/12/20 08:59 12/19/19 09:24 Haloperidol Lactate (Haldol) 5 mg Q6H PRN IM Agitation 12/18/19 22:30 02/01/20 22:29 Linezolid 300 ml @ 300 mls/hr Q12HR IVPB 12/19/19 21:00 12/26/19 20:59 Magnesium Hydroxide (Mom) 30 ml HSPRN PRN ORAL Constipation 12/12/19 22:15 01/11/20 22:14 Meropenem 500 mg/ Sodium Chloride 55 ml @ 110 mls/hr Q12H IVPB 12/19/19 16:00 12/24/19 15:59 12/19/19 16:52 Metoprolol Tartrate (Lopressor) 25 mg Q12HR ORAL 12/13/19 21:00 03/12/20 20:59 12/19/19 09:24 Morphine Sulfate (Morphine Sulfate) 1 mg Q4H PRN IVP For Pain 12/19/19 16:00 12/26/19 15:59 12/19/19 16:50 Nitroglycerin (Ntg) 0.4 mg Q5M PRN SL Prn Chest Pain 12/12/19 22:15 01/11/20 22:14 Ondansetron HCl (Zofran) 4 mg Q6H PRN IVP Nausea & Vomiting 12/12/19 22:15 01/11/20 22:14 12/13/19 02:56 Pantoprazole (Protonix) 40 mg EVERY 12 HOURS IVP 12/19/19 21:00 01/18/20 20:59 Polyethylene Glycol (Miralax) 17 gm BEDTIME ORAL 12/19/19 21:00 01/18/20 20:59 Sodium Chloride 1,000 ml @ 150 mls/hr Q6H40M IV 12/18/19 22:00 01/17/20 21:59 12/19/19 12:02 Assessment/Plan Assessment/Plan ASSESSMENT UTI with E coli ESBL Probably aspiration PNA COPD Bronchospasm Atrial fibrillation with rapid ventricular response Congestive heart failure Acute renal failure on CKD Status post ground fall Tobacco dependency Morbid obesity Homeless R knee edema and hematoma, likely sprain /strain post fall PLAN OF CARE tele hold steroids for now, given acute renal failure, no wheezing, s/p loading dose of steroids in ED closely monitor resp status and oxygenation O2 titrate to keep sat above 92% pulm toilet with Atrovent ATC and Xopenex PRN Venous Duplex BLE -NGT check ABG and pro BNP CXR 12/13 with equivocal mild interstitial congestion, unchanged , cardiomegaly UCX+ E coli ESBL, S to Macrobid started on meropenem as per ID leukocytosis trending down CXR 12/16 no change X ray R knee given fall 12/15 , large hematoma, swelling-no fx or dislocation ice R knee and elevate CT head no acute IC pathology fall precautions pancultured today 12/18 due to fevers now on meropenem and Zyvox prior declined Nicotine patch on a/c rate control- per cardio recs: on BB, Cardizem and Digoxin monitor volumes ECHO with pEF no evidence of WMA GI prophylaxis renal US no hydro, BL nonobstructive stones monitor renal parameters, lytes , creat trending up, K up- per nephro management, avoid nephrotoxics as possible may need HD discussion on weight loss if receptive - not at this time; anxious and wants to go home pain management anxiolytic prn SW consult for placement case discussed and evaluated by supervising physician ivy mccarty for a consult! Igor Carpio MD 12/19/19 1710: Subjective Allergies: Coded Allergies: ERYTHROMYCIN BASE (Verified Allergy, Severe, 12/12/19) HALOPERIDOL (Verified Allergy, Unknown, 12/12/19) VANCOMYCIN (Unverified Adverse Reaction, Intermediate, Shortness of Breath , 12/12/19) Assessment/Plan Assessment/Plan Patient seen and examined with TECHNOLOGY EDUCATION TEACHER. Agree with above A&P as it reflects our joint deliberations. F/U ABG, CXR, BNP Consider dec IVF May need nocturnal NIPPV Luz Bowen NP Dec 19, 2019 17:07 Igor Carpio MD Dec 19, 2019 17:10
[2019-12-19] MEDS ORDERED: Docusate 100mg cap ORAL SCH (18:00)
--- NOTE | 2019-12-19 18:20 | General Progress Note ---
Assessment/Plan Problem List: (1) Schizophrenia ICD Codes: F20.9 - Schizophrenia, unspecified SNOMED: 90027767 (2) GERD (gastroesophageal reflux disease) ICD Codes: K21.9 - Gastro-esophageal reflux disease without esophagitis SNOMED: 230386130 (3) Lymphadema (4) Smoker ICD Codes: F17.200 - Nicotine dependence, unspecified, uncomplicated SNOMED: 31501002 (5) Atrial fibrillation with rapid ventricular response ICD Codes: I48.91 - Unspecified atrial fibrillation SNOMED: 762577710874213 (6) CKD (chronic kidney disease) stage 3, GFR 30-59 ml/min ICD Codes: N18.3 - Chronic kidney disease, stage 3 (moderate) SNOMED: 308417833 (7) NATALIE (acute kidney injury) ICD Codes: N17.9 - Acute kidney failure, unspecified SNOMED: 1372500, 24549482 (8) COPD (chronic obstructive pulmonary disease) ICD Codes: J44.9 - Chronic obstructive pulmonary disease, unspecified SNOMED: 33730106 (9) UGI bleed ICD Codes: K92.2 - Gastrointestinal hemorrhage, unspecified SNOMED: 43695768 (10) Dysphagia ICD Codes: R13.10 - Dysphagia, unspecified SNOMED: 20673792, 583656407 (11) UTI (urinary tract infection) ICD Codes: N39.0 - Urinary tract infection, site not specified SNOMED: 25747335 (12) ESBL (extended spectrum beta-lactamase) producing bacteria infection ICD Codes: A49.9 - Bacterial infection, unspecified; Z16.12 - Extended spectrum beta lactamase (ESBL) resistance SNOMED: 486551452 (13) Dehydration ICD Codes: E86.0 - Dehydration SNOMED: 76032820 Status: stable Assessment/Plan: tele, , pulm care, PT eval, psych to see, placement, now worse natalie,prerenal place trivedi, I/O, update lab, hold diuretic , hydrate, coffee grounds in ng, iv protonix, rx esbl uti, remains high risk, psychotic and hallucinating d/w psych , ID, cardiology Subjective ROS Limited/Unobtainable: Yes Allergies: Coded Allergies: ERYTHROMYCIN BASE (Verified Allergy, Severe, 12/12/19) HALOPERIDOL (Verified Allergy, Unknown, 12/12/19) VANCOMYCIN (Unverified Adverse Reaction, Intermediate, Shortness of Breath , 12/12/19) Objective Last 24 Hour Vital Signs Date Time Temp Pulse Resp B/P (MAP) Pulse Ox O2 Delivery O2 Flow Rate FiO2 12/19/19 16:00 140 12/19/19 16:00 99.2 132 28 139/49 (79) 97 12/19/19 12:42 95 Venturi Mask 4.0 31 12/19/19 12:01 115 115/53 12/19/19 12:00 99.5 115 32 115/53 (73) 96 12/19/19 12:00 110 12/19/19 09:24 106 136/70 12/19/19 09:00 106 12/19/19 09:00 Nasal Cannula 2.0 12/19/19 08:00 100.0 106 24 136/70 (92) 97 12/19/19 08:00 112 12/19/19 05:52 100 144/82 12/19/19 04:00 103 12/19/19 04:00 100.8 100 24 144/82 (102) 93 12/19/19 00:00 104 148/87 12/19/19 00:00 100.6 104 30 148/87 (107) 92 12/19/19 00:00 106 12/18/19 21:56 101.5 12/18/19 21:25 95 143/58 12/18/19 21:00 Nasal Cannula 2.0 12/18/19 20:00 107 12/18/19 20:00 103.3 95 28 143/58 (86) 93 12/18/19 19:05 94 Venturi Mask 4.0 31 Intake and Output 12/18/19 12/19/19 19:00 07:00 Intake Total 1250 ml 1035 ml Output Total 500 ml 750 ml Balance 750 ml 285 ml IV Total 1250 ml 1035 ml Output Urine Total 500 ml 750 ml Laboratory Tests 12/19/19 00:34: White Blood Count 7.0, Red Blood Count 2.76L, Hemoglobin 7.6L, Hematocrit 24.3L , Mean Corpuscular Volume 88, Mean Corpuscular Hemoglobin 27.6, Mean Corpuscular Hemoglobin Concent 31.4L, Red Cell Distribution Width 16.5H, Platelet Count 139L, Mean Platelet Volume 6.9, Neutrophils (%) (Auto) , Lymphocytes (%) (Auto) , Monocytes (%) (Auto) , Eosinophils (%) (Auto) , Basophils (%) (Auto) 12/19/19 04:20: White Blood Count 7.0, Red Blood Count 2.85L, Hemoglobin 7.8L, Hematocrit 25.2L , Mean Corpuscular Volume 89, Mean Corpuscular Hemoglobin 27.3, Mean Corpuscular Hemoglobin Concent 30.7L, Red Cell Distribution Width 16.7H, Platelet Count 137L, Mean Platelet Volume 6.7, Neutrophils (%) (Auto) , Lymphocytes (%) (Auto) , Monocytes (%) (Auto) , Eosinophils (%) (Auto) , Basophils (%) (Auto) , Differential Total Cells Counted 100, Neutrophils % ( Manual) 91H, Lymphocytes % (Manual) 3L, Monocytes % (Manual) 6, Eosinophils % ( Manual) 0, Basophils % (Manual) 0, Band Neutrophils 0, Nucleated Red Blood Cells 1, Platelet Estimate DecreasedL, Platelet Morphology Normal, Anisocytosis 1+, Sodium Level 149H, Potassium Level 4.9, Chloride Level 110H, Carbon Dioxide Level 30, Anion Gap 9, Blood Urea Nitrogen 94H, Creatinine 3.2H, Estimat Glomerular Filtration Rate 14.5, Glucose Level 106, Calcium Level 8.7, Digoxin Level 2.4H 12/19/19 17:05: Arterial Blood pH 7.409, Arterial Blood Partial Pressure CO2 37.3, Arterial Blood Partial Pressure O2 71.3L, Arterial Blood HCO3 23.1, Arterial Blood Oxygen Saturation 92.7L, Arterial Blood Base Excess -1.4, Eugene Test Positive Height (Feet): 5 Height (Inches): 6.00 Weight (Pounds): 298 General Appearance: morbidly obese EENT: other - eyes closed Neck: normal alignment Cardiovascular: regularly irregular Respiratory/Chest: rhonchi - bilaterally Abdomen: soft Edema: no edema noted Arm (L), no edema noted Arm (R), no edema noted Leg (L), no edema noted Leg (R), no edema noted Pedal (L), no edema noted Pedal (R), no edema noted Generalized Neurologic: disoriented Benjamin Dumont MD Dec 19, 2019 18:20
[2019-12-19 19:23] LABS: ANION GAP 11 mmol/L (5-15); BLOOD UREA NITROGEN 80 mg/dL (7-18); CALCIUM 8.6 MG/DL (8.5-10.1); CARBON DIOXIDE 28 MMOL/L (21-32); CHLORIDE 113 MMOL/L (98-107); CREATININE 2.2 MG/DL (0.55-1.30); POTASSIUM 5.2 MMOL/L (3.5-5.1); SODIUM 152 MMOL/L (136-145)
--- NOTE | 2019-12-19 19:25 | NUR ---
NURSE HAND-OFF REPORT: Important Events on Shift:NA Patient Status: Unstable Diet: NPO Pending Orders: NA Pending Results/Labs:NA Pending MD notification:Morning labs Latest Vital Signs: Temperature 99.2 , Pulse 140 , B/P 139 /49 , Respiratory Rate 28 , O2 SAT 97 , Nasal Cannula, O2 Flow Rate 4.0 . Vital Sign Comment: Stable EKG Rhythm: Atrial Fibrillation Rhythm change?: N MD Notified?: Y -MD Gaviota UNDERWOOD Response: Latest Abreu Fall Score: 95 Fall Risk: High Risk Safety Measures: Call light Within Reach, Bed Alarm Zone 2, Side Rails Side Rails x3, Bed position Low and Locked. Fall Precautions: Yellow Socks Yellow Gown Door Sign Patient Fall Education Report given to Miranda/NOEL.
[2019-12-19 20:00] VITALS: BP 168/83
--- NOTE | 2019-12-19 20:05 | NUR ---
NURSE NOTES: Patient received from Dominique RN. Patient in stable condition. A&O x1. Patient screaming, pulled her up and fixed on bed. Patient stopped screaming. Saturating well on 2L of oxygen via nasal cannula. Patient on NPO with NGT on Left nares. Lockett catheter in place intact and patent draining well to gravity. Bilateral soft wrist restraints in place. IV site on Right Forearm 22G running 1/2NS @ 150mls/ hr. OB stool pending Bed in lowest position and locked. Will continue plan of care.
[2019-12-19] MEDS ORDERED: Miralax 17gm pkt ORAL SCH (21:00)
[2019-12-19] MEDS ORDERED: Metoprolol Tartrate 50mg tab ORAL SCH (21:00)
--- NOTE | 2019-12-19 22:12 | Psych Consult Progress Note ---
Psychiatry Progress Note Psychiatry Progress Note Subjective the pt is delusional moaning confused waxing and waning o consciousness the pt is moaning and in pain Dr. Dumont didn't order pain meds and defer that to me/ the pt was tachycardic and inpain Medications Current Medications Medications (Trade) Dose Ordered Sig/Shiraz Route PRN Reason Start Time Stop Time Status Last Admin Dose Admin Acetaminophen (Tylenol) 650 mg Q4H PRN ORAL Temp >100.5 12/12/19 22:15 01/11/20 22:14 12/17/19 04:13 Acetaminophen (Tylenol) 650 mg Q4H PRN ORAL Mild Pain (Pain Scale 1-3) 12/12/19 22:15 01/11/20 22:14 12/18/19 21:26 Apixaban (Eliquis) 5 mg BID ORAL 12/13/19 18:00 03/12/20 17:59 12/19/19 18:28 Aspirin (ASA) 81 mg DAILY ORAL 12/13/19 09:00 01/27/20 08:59 12/19/19 09:23 Bacitracin (Bacitracin 15gm tube) 1 applic BID TOPIC 12/18/19 18:00 03/12/20 08:59 12/19/19 18:28 Barium Sulfate (Varibar Honey) 250 ml NOW PRN MC RAD 12/17/19 14:00 12/20/19 13:54 Barium Sulfate (Varibar Quartzsite) 240 ml NOW PRN MC RAD 12/17/19 14:00 12/20/19 13:54 Barium Sulfate (Varibar Pudding) 230 ml NOW PRN MC RAD 12/17/19 14:00 12/20/19 13:54 Barium Sulfate (Varibar Thin Liquid powder) 148 gm NOW PRN MC RAD 12/17/19 14:00 12/20/19 13:54 Clotrimazole (Lotrimin) 1 applic TWICE A DAY TOPIC 12/18/19 18:00 03/12/20 08:59 12/19/19 18:29 Dextrose (Dextrose 50%) 25 ml Q30M PRN IV Hypoglycemia 12/12/19 22:15 03/11/20 22:14 Dextrose (Dextrose 50%) 50 ml Q30M PRN IV Hypoglycemia 12/12/19 22:15 03/11/20 22:14 Diltiazem HCl (Cardizem Tab) 90 mg Q6HR ORAL 12/14/19 12:00 01/13/20 11:59 12/19/19 18:28 Docusate Sodium (Colace) 100 mg TWICE A DAY ORAL 12/19/19 18:00 01/18/20 17:59 12/19/19 18:28 Famotidine (Pepcid) 10 mg DAILY ORAL 12/13/19 09:00 03/12/20 08:59 12/19/19 09:24 Haloperidol Lactate (Haldol) 5 mg Q6H PRN IM Agitation 12/18/19 22:30 02/01/20 22:29 Iron Sucrose 100 mg/Sodium Chloride 60 ml @ 240 mls/hr BEDTIME IV 12/19/19 21:00 12/23/19 21:14 Linezolid 300 ml @ 300 mls/hr Q12HR IVPB 12/19/19 21:00 12/26/19 20:59 Magnesium Hydroxide (Mom) 30 ml HSPRN PRN ORAL Constipation 12/12/19 22:15 01/11/20 22:14 Meropenem 500 mg/ Sodium Chloride 55 ml @ 110 mls/hr Q12H IVPB 12/19/19 16:00 12/24/19 15:59 12/19/19 16:52 Metoprolol Tartrate (Lopressor) 50 mg Q12HR ORAL 12/19/19 21:00 03/18/20 20:59 Morphine Sulfate (Morphine Sulfate) 1 mg Q4H PRN IVP For Pain 12/19/19 16:00 12/26/19 15:59 12/19/19 16:50 Nitroglycerin (Ntg) 0.4 mg Q5M PRN SL Prn Chest Pain 12/12/19 22:15 01/11/20 22:14 Ondansetron HCl (Zofran) 4 mg Q6H PRN IVP Nausea & Vomiting 12/12/19 22:15 01/11/20 22:14 12/13/19 02:56 Pantoprazole (Protonix) 40 mg EVERY 12 HOURS IVP 12/19/19 21:00 01/18/20 20:59 Polyethylene Glycol (Miralax) 17 gm BEDTIME ORAL 12/19/19 21:00 01/18/20 20:59 Sodium Chloride 1,000 ml @ 150 mls/hr Q6H40M IV 12/18/19 22:00 01/17/20 21:59 12/19/19 18:32 Neurological/Psychiatric: Reports: anxiety, depressed, emotional problems Allergies: Coded Allergies: ERYTHROMYCIN BASE (Verified Allergy, Severe, 12/12/19) HALOPERIDOL (Verified Allergy, Unknown, 12/12/19) VANCOMYCIN (Unverified Adverse Reaction, Intermediate, Shortness of Breath , 12/12/19) Objective Data Height (Feet): 5 Height (Inches): 6.00 Weight (Pounds): 298 General Appearance: morbidly obese Additional Comments: confused. Mood is anxious. Affect is flat. Thought process, there is a paucity of thought content. Thought content, no suicidal or homicidal ideation. Cognition is impaired. Insight and judgment is impaired. Assessment/Plan Goodman I: dc psychotropics pt with gi bleed and kid failure Status: stable Status Narrative dc psychotropics pt with gi bleed and kid failure Assessment/Plan: haldol im prn morphine low dose 1mg q 6 prn Harris Ballesteros MD Dec 19, 2019 22:12
[2019-12-19] MEDS: Pantoprazole Inj IVP SCH (22:27)
[2019-12-20] VITALS: BP 131/69
[2019-12-20] MEDS: dilTIAZem HCl 90mg tab ORAL SCH ×2 (00:32→06:47)
--- NOTE | 2019-12-20 01:03 | Cardiology Progress Note ---
Subjective DATE OF SERVICE: Dec 19, 2019 Still somnolent; unable to take most oral meds Monitor: AFIb with rapid rates No SOB or hypoxia at rest, but febrile above 101 yesterday. TSH 0.88; Dig 2.2. Venous Duplex: negative for DVT Renal fxn and free water deficit still impaired Objective Last 24 Hour Vital Signs Date Time Temp Pulse Resp B/P (MAP) Pulse Ox O2 Delivery O2 Flow Rate FiO2 12/20/19 00:32 101 131/64 12/19/19 22:29 110 168/83 12/19/19 19:15 95 Venturi Mask 4.0 31 12/19/19 19:15 105 20 97 Room Air 21 12/19/19 18:28 140 139/49 12/19/19 16:00 140 12/19/19 16:00 99.2 132 28 139/49 (79) 97 12/19/19 12:42 95 Venturi Mask 4.0 31 12/19/19 12:01 115 115/53 12/19/19 12:00 99.5 115 32 115/53 (73) 96 12/19/19 12:00 110 12/19/19 09:24 106 136/70 12/19/19 09:00 106 12/19/19 09:00 Nasal Cannula 2.0 12/19/19 08:00 100.0 106 24 136/70 (92) 97 12/19/19 08:00 112 12/19/19 05:52 100 144/82 12/19/19 04:00 103 12/19/19 04:00 100.8 100 24 144/82 (102) 93 ROS: unchanged from 12/12/19 LUNGS: diminished breath sounds CARDIAC: normal S1 and S2, irregularly irregular ABDOMEN: other - obese EXTREMITIES: moderate edema - mostly non pitting Laboratory Tests Test 12/19/19 04:20 12/19/19 17:05 12/19/19 17:50 White Blood Count 7.0 K/UL (4.8-10.8) Red Blood Count 2.85 M/UL (4.20-5.40) L Hemoglobin 7.8 G/DL (12.0-16.0) L Hematocrit 25.2 % (37.0-47.0) L Mean Corpuscular Volume 89 FL (80-99) Mean Corpuscular Hemoglobin 27.3 PG (27.0-31.0) Mean Corpuscular Hemoglobin Concent 30.7 G/DL (32.0-36.0) L Red Cell Distribution Width 16.7 % (11.6-14.8) H Platelet Count 137 K/UL (150-450) L Mean Platelet Volume 6.7 FL (6.5-10.1) Neutrophils (%) (Auto) % (45.0-75.0) Lymphocytes (%) (Auto) % (20.0-45.0) Monocytes (%) (Auto) % (1.0-10.0) Eosinophils (%) (Auto) % (0.0-3.0) Basophils (%) (Auto) % (0.0-2.0) Differential Total Cells Counted 100 Neutrophils % (Manual) 91 % (45-75) H Lymphocytes % (Manual) 3 % (20-45) L Monocytes % (Manual) 6 % (1-10) Eosinophils % (Manual) 0 % (0-3) Basophils % (Manual) 0 % (0-2) Band Neutrophils 0 % (0-8) Nucleated Red Blood Cells 1 /100 WBC Platelet Estimate Decreased L Platelet Morphology Normal Anisocytosis 1+ Sodium Level 149 MMOL/L (136-145) H 152 MMOL/L (136-145) H Potassium Level 4.9 MMOL/L (3.5-5.1) 5.2 MMOL/L (3.5-5.1) H Chloride Level 110 MMOL/L (98-107) H 113 MMOL/L (98-107) H Carbon Dioxide Level 30 MMOL/L (21-32) 28 MMOL/L (21-32) Anion Gap 9 mmol/L (5-15) 11 mmol/L (5-15) Blood Urea Nitrogen 94 mg/dL (7-18) H 80 mg/dL (7-18) H Creatinine 3.2 MG/DL (0.55-1.30) H 2.2 MG/DL (0.55-1.30) H Estimat Glomerular Filtration Rate 14.5 mL/min (>60) 22.3 mL/min (>60) Glucose Level 106 MG/DL (74-106) 128 MG/DL (74-106) H Calcium Level 8.7 MG/DL (8.5-10.1) 8.6 MG/DL (8.5-10.1) Digoxin Level 2.4 NG/ML (0.9-2.0) H Arterial Blood pH 7.409 (7.350-7.450) Arterial Blood Partial Pressure CO2 37.3 mmHg (35.0-45.0) Arterial Blood Partial Pressure O2 71.3 mmHg (75.0-100.0) L Arterial Blood HCO3 23.1 mmol/L (22.0-26.0) Arterial Blood Oxygen Saturation 92.7 % (95-100) L Arterial Blood Base Excess -1.4 (-2-2) Eugene Test Positive Pro-B-Type Natriuretic Peptide 2682 pg/mL (0-125) H Microbiology Date/Time Source Procedure Growth Status 12/17/19 16:00 Blood Blood Culture - Preliminary NO GROWTH AFTER 24 HOURS Resulted 12/17/19 15:45 Blood Blood Culture - Preliminary NO GROWTH AFTER 24 HOURS Resulted 12/17/19 20:45 Indwelling Cath Urine Culture - Preliminary Resulted Assessment/Plan Assessment/Plan AFiB with RVR CHF, ac/chr diast - compensated BLE edema UTI with sepsis obesity COPD with bronchospasm Acute renal failure - worsening Pleural effusion Antimicrobials Titrate rate-control meds - hold digitalis for elevated levels. Maintain diltiazem and metoprolol. Eliquis at renal dosing Hypotonic IVF until po intake improves and free water deficit corrected. Continued lunchroom monitor Thorocentesis under consideration. Jerome Meek MD Dec 20, 2019 01:03
[2019-12-20] MEDS: Iron Sucrose 100 MG in NS 55 ML IV SCH ×2 (02:16→21:40)
[2019-12-20] MEDS: Meropenem 500 MG in NS 55 ML IVPB SCH ×2 (03:30→16:47)
[2019-12-20 04:00] VITALS: BP 163/70
--- NOTE | 2019-12-20 07:33 | NUR ---
NURSE HAND-OFF REPORT: Important Events on Shift:[Fever] Patient Status: [Stable] Diet: NPO[] Pending Orders: [OB STOOL] Pending Results/Labs:[] Pending MD notification:[] Latest Vital Signs: Temperature 99.7 , Pulse 97 , B/P 163 /70 , Respiratory Rate 22 , O2 SAT 91 , Nasal Cannula, O2 Flow Rate 2.0 . Vital Sign Comment: [] EKG Rhythm: Atrial Fibrillation Rhythm change?: N MD Notified?: Y -MD Gaviota UNDERWOOD Response: Latest Abreu Fall Score: 95 Fall Risk: High Risk Safety Measures: Call light Within Reach, Bed Alarm Zone 2, Side Rails Side Rails x3, Bed position Low and Locked. Fall Precautions: Yellow Socks Yellow Gown Door Sign Patient Fall Education Report given to [Terese RN].
--- NOTE | 2019-12-20 07:34 | NUR ---
NURSE NOTES: Pt received from Balaji COHEN. Pt in bed sleeping, head of bead elevated to 30 degrees. Bed low and locked. Call light within reach. Pt hasd bilateral soft wrist restraint. Pulses present and palpable. No bruising or redness observed at wrists. Pt shouting, she wantys water however she is NPO./ Wet cotton swab applied to lips and mouth. White board updated.
[2019-12-20 07:36] LABS: HEMATOCRIT 25.1 % (37.0-47.0); HEMOGLOBIN 7.7 G/DL (12.0-16.0); MEAN CORPUSCULAR VOLUME 89 FL (80-99); PLATELET COUNT 152 K/UL (150-450); RED BLOOD COUNT 2.81 M/UL (4.20-5.40); RED CELL DISTRIBUTION WIDTH 16.7 % (11.6-14.8); WHITE BLOOD COUNT 8.5 K/UL (4.8-10.8)
--- NOTE | 2019-12-20 07:45 | NUR ---
NURSE NOTES: ASSOCIATE DENTIST reported tyhat 02 sat is 91, increased NC to 3.5 liters. Will monitor
[2019-12-20 08:00] VITALS: BP 136/50
[2019-12-20] MEDS ORDERED: Acetaminophen 650mg/20.3ml NG PRN ×2 (08:00)
[2019-12-20 08:11] LABS: ALANINE AMINOTRANSFERASE 30 U/L (12-78); ALBUMIN 2.1 G/DL (3.4-5.0); ALBUMIN/GLOBULIN RATIO 0.4 (1.0-2.7); ALKALINE PHOSPHATASE 71 U/L (46-116); ANION GAP 9 mmol/L (5-15); ASPARTATE AMINO TRANSFERASE 46 U/L (15-37); BILIRUBIN,TOTAL 1.4 MG/DL (0.2-1.0); BLOOD UREA NITROGEN 75 mg/dL (7-18); CALCIUM 9.4 MG/DL (8.5-10.1); CARBON DIOXIDE 29 MMOL/L (21-32); CHLORIDE 112 MMOL/L (98-107); CREATININE 2.1 MG/DL (0.55-1.30); POTASSIUM 5.4 MMOL/L (3.5-5.1); SODIUM 150 MMOL/L (136-145)
[2019-12-20 08:12] LABS: BILIRUBIN,DIRECT 0.9 MG/DL (0.0-0.3)
[2019-12-20] MEDS ORDERED: Milk of Magnesia 30ml Ud NG PRN (08:15)
[2019-12-20] MEDS: Aspirin Baby 81mg NG SCH ×2 (08:48→09:00)
[2019-12-20] MEDS: Pantoprazole Inj IVP SCH ×2 (08:48→21:40)
[2019-12-20] MEDS: Docusate 100mg/10ml Liq NG SCH ×2 (08:48→17:33)
[2019-12-20] MEDS ORDERED: Eliquis 5mg tablet NGT SCH (09:00)
--- NOTE | 2019-12-20 09:00 | NUR ---
NURSE NOTES: Per Dr. Meek (endorsed to me by mark rn and additionally by Doron Paige RN yesterday), hold aspirin but give eliquis because this pt has GI bleeding but needs the eliquis.
--- NOTE | 2019-12-20 09:00 | NUR ---
NURSE NOTES: Cannot asses strength on either hands or feet because this patient does not obey commands.
[2019-12-20] MEDS: Bacitracin Oint 15gm Tube TOPIC SCH ×2 (09:06→17:33)
--- NOTE | 2019-12-20 09:35 | NUR ---
PT NOTE Patient sleeping, Ani RN requesting to not wake up patient. Will re-attempt later as schedule permits.
[2019-12-20] MEDS: Metoprolol Tartrate 50mg tab NG SCH ×2 (09:54→21:00)
--- NOTE | 2019-12-20 10:51 | Pulmonology Progress Note ---
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 creat started to trend down BNP trending down l ow grade fever this am Objective Last 24 Hour Vital Signs Date Time Temp Pulse Resp B/P (MAP) Pulse Ox O2 Delivery O2 Flow Rate FiO2 12/20/19 09:54 108 136/50 12/20/19 08:00 108 12/20/19 08:00 99.3 108 21 136/50 (78) 91 12/20/19 06:47 97 163/70 12/20/19 04:00 97 12/20/19 04:00 99.7 91 22 163/70 (101) 91 12/20/19 01:04 99.7 12/20/19 00:32 101 131/64 12/20/19 00:00 111 12/20/19 00:00 100.4 103 21 131/69 (89) 94 12/19/19 22:29 110 168/83 12/19/19 21:00 Nasal Cannula 2.0 12/19/19 20:00 123 12/19/19 20:00 102.2 110 22 168/83 (111) 97 12/19/19 19:15 95 Venturi Mask 4.0 31 12/19/19 19:15 105 20 97 Room Air 21 12/19/19 18:28 140 139/49 12/19/19 16:00 140 12/19/19 16:00 99.2 132 28 139/49 (79) 97 12/19/19 12:42 95 Venturi Mask 4.0 31 12/19/19 12:01 115 115/53 12/19/19 12:00 99.5 115 32 115/53 (73) 96 12/19/19 12:00 110 Intake and Output 12/19/19 12/20/19 19:00 07:00 Output Total 1000 ml 850 ml Balance -1000 ml -850 ml Output Urine Total 1000 ml 850 ml Objective General Appearance: morbidly obese now , asleep, but easily arousable female in NAD Lines, tubes and drains: peripheral HEENT: normocephalic, atraumatic, anicteric, NGT in , O2 via NC Neck: non-tender Respiratory/Chest: chest wall non-tender, no accessory muscle use, decreased breath sounds Cardiovascular/Chest: irregularly irregular - A fib , rate overall controlled now , distant heart sounds Abdomen: normal bowel sounds, non tender , obese, soft Extremities: no calf tenderness, moderate edema - +2 BLE, R knee with large hematoma, edema, Skin Exam: warm/dry, multiple tattoos Neurologic: abnormal gait - w/chair bound , asleep but easily arousable Musculoskeletal: normal muscle bulk Microbiology Date/Time Source Procedure Growth Status 12/18/19 23:20 Blood Blood Culture - Preliminary NO GROWTH AFTER 24 HOURS Resulted 12/18/19 23:15 Blood Blood Culture - Preliminary NO GROWTH AFTER 24 HOURS Resulted 12/17/19 16:00 Blood Blood Culture - Preliminary NO GROWTH AFTER 48 HOURS Resulted 12/17/19 15:45 Blood Blood Culture - Preliminary NO GROWTH AFTER 48 HOURS Resulted 12/17/19 20:45 Indwelling Cath Urine Culture - Preliminary Gram Positive Cocci Resulted Laboratory Tests 12/19/19 17:05: Arterial Blood pH 7.409, Arterial Blood Partial Pressure CO2 37.3, Arterial Blood Partial Pressure O2 71.3L, Arterial Blood HCO3 23.1, Arterial Blood Oxygen Saturation 92.7L, Arterial Blood Base Excess -1.4, Eugene Test Positive 12/19/19 17:50: Sodium Level 152H, Potassium Level 5.2H, Chloride Level 113H, Carbon Dioxide Level 28, Anion Gap 11, Blood Urea Nitrogen 80H, Creatinine 2.2H, Estimat Glomerular Filtration Rate 22.3, Glucose Level 128H, Calcium Level 8.6, Pro-B- Type Natriuretic Peptide 2682H 12/20/19 06:49: Sodium Level 150H, Potassium Level 5.4H, Chloride Level 112H, Carbon Dioxide Level 29, Anion Gap 9, Blood Urea Nitrogen 75H, Creatinine 2.1H, Estimat Glomerular Filtration Rate 23.5, Glucose Level 148H, Calcium Level 9.4, White Blood Count 8.5, Red Blood Count 2.81L, Hemoglobin 7.7L, Hematocrit 25.1L, Mean Corpuscular Volume 89, Mean Corpuscular Hemoglobin 27.2, Mean Corpuscular Hemoglobin Concent 30.5L, Red Cell Distribution Width 16.7H, Platelet Count 152 , Mean Platelet Volume 6.7, Neutrophils (%) (Auto) , Lymphocytes (%) (Auto) , Monocytes (%) (Auto) , Eosinophils (%) (Auto) , Basophils (%) (Auto) , Differential Total Cells Counted 100, Neutrophils % (Manual) 90H, Lymphocytes % (Manual) 6L, Monocytes % (Manual) 4, Eosinophils % (Manual) 0, Basophils % ( Manual) 0, Band Neutrophils 0, Platelet Estimate Adequate, Platelet Morphology Normal, Hypochromasia 1+, Anisocytosis 1+, Total Bilirubin 1.4H, Direct Bilirubin 0.9H, Aspartate Amino Transf (AST/SGOT) 46H, Alanine Aminotransferase (ALT/SGPT) 30, Alkaline Phosphatase 71, Total Protein 7.6, Albumin 2.1L, Globulin 5.5, Albumin/Globulin Ratio 0.4L Current Medications Medications (Trade) Dose Ordered Sig/Shiraz Route PRN Reason Start Time Stop Time Status Last Admin Dose Admin Acetaminophen (Tylenol) 650 mg Q4H PRN NG Mild Pain (Pain Scale 1-3) 12/20/19 08:00 01/11/20 22:14 Acetaminophen (Tylenol) 650 mg Q4H PRN NG Temp >100.5 12/20/19 08:00 01/11/20 22:14 Apixaban (Eliquis) 5 mg BID NGT 12/20/19 09:00 03/12/20 17:59 12/20/19 08:50 Aspirin (ASA) 81 mg DAILY NG 12/20/19 09:00 01/27/20 08:59 Bacitracin (Bacitracin 15gm tube) 1 applic BID TOPIC 12/18/19 18:00 03/12/20 08:59 12/20/19 09:06 Barium Sulfate (Varibar Honey) 250 ml NOW PRN MC RAD 12/17/19 14:00 12/20/19 13:54 Barium Sulfate (Varibar [place]) 240 ml NOW PRN MC RAD 12/17/19 14:00 12/20/19 13:54 Barium Sulfate (Varibar Pudding) 230 ml NOW PRN MC RAD 12/17/19 14:00 12/20/19 13:54 Barium Sulfate (Varibar Thin Liquid powder) 148 gm NOW PRN MC RAD 12/17/19 14:00 12/20/19 13:54 Clotrimazole (Lotrimin) 1 applic TWICE A DAY TOPIC 12/18/19 18:00 03/12/20 08:59 12/20/19 09:07 Dextrose (Dextrose 50%) 25 ml Q30M PRN IV Hypoglycemia 12/12/19 22:15 03/11/20 22:14 Dextrose (Dextrose 50%) 50 ml Q30M PRN IV Hypoglycemia 12/12/19 22:15 03/11/20 22:14 Diltiazem HCl (Cardizem Tab) 90 mg Q6HR NG 12/20/19 12:00 01/13/20 11:59 Docusate Sodium (Colace) 100 mg TWICE A DAY NG 12/20/19 09:00 01/19/20 08:59 12/20/19 08:48 Famotidine (Pepcid) 10 mg DAILY ORAL 12/20/19 09:00 03/12/20 08:59 12/20/19 08:49 Iron Sucrose 100 mg/Sodium Chloride 60 ml @ 240 mls/hr BEDTIME IV 12/19/19 21:00 12/23/19 21:14 12/20/19 02:16 Linezolid 300 ml @ 300 mls/hr Q12HR IVPB 12/19/19 21:00 12/26/19 20:59 12/20/19 08:56 Magnesium Hydroxide (Mom) 30 ml HSPRN PRN NG Constipation 12/20/19 08:15 01/11/20 22:14 Meropenem 500 mg/ Sodium Chloride 55 ml @ 110 mls/hr Q12H IVPB 12/19/19 16:00 12/24/19 15:59 12/20/19 03:30 Metoprolol Tartrate (Lopressor) 50 mg Q12HR NG 12/20/19 09:00 03/18/20 20:59 12/20/19 09:54 Morphine Sulfate (Morphine Sulfate) 1 mg EVERY 6 HOURS PRN IVP For Pain 12/19/19 22:15 12/26/19 22:14 Nitroglycerin (Ntg) 0.4 mg Q5M PRN SL Prn Chest Pain 12/12/19 22:15 01/11/20 22:14 Ondansetron HCl (Zofran) 4 mg Q6H PRN IVP Nausea & Vomiting 12/12/19 22:15 01/11/20 22:14 12/13/19 02:56 Pantoprazole (Protonix) 40 mg EVERY 12 HOURS IVP 12/19/19 21:00 01/18/20 20:59 12/20/19 08:48 Polyethylene Glycol (Miralax) 17 gm BEDTIME NG 12/20/19 21:00 01/18/20 20:59 Sodium Chloride 1,000 ml @ 150 mls/hr Q6H40M IV 12/18/19 22:00 01/17/20 21:59 12/20/19 07:20 Assessment/Plan Assessment/Plan ASSESSMENT UTI with E coli ESBL ? possible aspiration PNA COPD Bronchospasm Atrial fibrillation with rapid ventricular response Congestive heart failure Acute renal failure on CKD Status post ground fall Tobacco dependency Morbid obesity Homeless R knee edema and hematoma, likely sprain /strain post fall PLAN OF CARE tele hold steroids for now, given acute renal failure, no wheezing, s/p loading dose of steroids in ED closely monitor resp status and oxygenation O2 titrate to keep sat above 92% pulm toilet with Atrovent ATC and Xopenex PRN Venous Duplex BLE -NGT ABG 12/18 ok on o2 via NC pro BNP trending down CXR 12/13 with equivocal mild interstitial congestion, unchanged , cardiomegaly UCX+ E coli ESBL, S to Macrobid started on meropenem as per ID leukocytosis trending down CXR 12/16 no change low grade fevers BCX 12/16 and 12/17 NGTD UCX 12/16 GPC now on meropenem and Zyvox X ray R knee given fall 12/15 , large hematoma, swelling-no fx or dislocation ice R knee and elevate CT head no acute IC pathology fall precautions prior declined Nicotine patch on a/c rate control- per cardio recs: on BB, Cardizem and Digoxin monitor volumes ECHO with pEF no evidence of WMA GI prophylaxis renal US no hydro, BL nonobstructive stones IV hydration monitor renal parameters, lytes , creat trending down - per nephro management, avoid nephrotoxics as possible discussion on weight loss if receptive - not at this time; anxious and wants to go home pain management anxiolytic prn SW consult for placement case discussed and evaluated by supervising physician ivy mccarty for a consult! Igor Carpio MD 12/20/19 1123: Subjective Allergies: Coded Allergies: ERYTHROMYCIN BASE (Verified Allergy, Severe, 12/12/19) HALOPERIDOL (Verified Allergy, Unknown, 12/12/19) VANCOMYCIN (Unverified Adverse Reaction, Intermediate, Shortness of Breath , 12/12/19) Assessment/Plan Assessment/Plan Patient seen and examined with MOLD CLE[employer] STORAGE SUPERVISOR. Agree with above A&P as it reflects our joint deliberations. Luz Bowen NP Dec 20, 2019 10:51 Igor Carpio MD Dec 20, 2019 11:23
--- NOTE | 2019-12-20 11:22 | NUR ---
LIFTER/DRIVER orders received and acknowledged from Dr. Victoria for Bedside Swallow Evaluation. LIFTER/DRIVER reviewed chart, spoke with RN who reports Patient is unable to follow directions and is not appropriate to participate at this time due to Patient's current uncooperatively. LIFTER/DRIVER plans to re-attempt swallow evaluation tomorrow 12/20/19. Thank you for this referral! LIFTER/DRIVER [phone]
--- NOTE | 2019-12-20 11:43 | General Progress Note ---
Assessment/Plan Problem List: (1) Schizophrenia ICD Codes: F20.9 - Schizophrenia, unspecified SNOMED: 98651042 (2) GERD (gastroesophageal reflux disease) ICD Codes: K21.9 - Gastro-esophageal reflux disease without esophagitis SNOMED: 375098540 (3) Lymphadema (4) Smoker ICD Codes: F17.200 - Nicotine dependence, unspecified, uncomplicated SNOMED: 19618959 (5) Atrial fibrillation with rapid ventricular response ICD Codes: I48.91 - Unspecified atrial fibrillation SNOMED: 154319035921896 (6) CKD (chronic kidney disease) stage 3, GFR 30-59 ml/min ICD Codes: N18.3 - Chronic kidney disease, stage 3 (moderate) SNOMED: 621356395 (7) NATALIE (acute kidney injury) ICD Codes: N17.9 - Acute kidney failure, unspecified SNOMED: 3437205, 72323683 (8) COPD (chronic obstructive pulmonary disease) ICD Codes: J44.9 - Chronic obstructive pulmonary disease, unspecified SNOMED: 86026330 (9) UGI bleed ICD Codes: K92.2 - Gastrointestinal hemorrhage, unspecified SNOMED: 19184054 (10) Dysphagia ICD Codes: R13.10 - Dysphagia, unspecified SNOMED: 89667211, 665951796 (11) UTI (urinary tract infection) ICD Codes: N39.0 - Urinary tract infection, site not specified SNOMED: 24807806 (12) ESBL (extended spectrum beta-lactamase) producing bacteria infection ICD Codes: A49.9 - Bacterial infection, unspecified; Z16.12 - Extended spectrum beta lactamase (ESBL) resistance SNOMED: 649523763 (13) Dehydration ICD Codes: E86.0 - Dehydration SNOMED: 37728923 Status: stable Assessment/Plan: tele, , pulm care, PT eval, psych to see, placement, now worse natalie,prerenal place trivedi, I/O, update lab, hold diuretic , hydrate, coffee grounds in ng, stop eliquis ancd asa, possible lovenox 12/20 iv protonix, rx esbl uti,g+ cocci linezolid , remains high risk, psychotic and hallucinating d/w psych, ID, cardiology Subjective ROS Limited/Unobtainable: Yes Allergies: Coded Allergies: ERYTHROMYCIN BASE (Verified Allergy, Severe, 12/12/19) HALOPERIDOL (Verified Allergy, Unknown, 12/12/19) VANCOMYCIN (Unverified Adverse Reaction, Intermediate, Shortness of Breath , 12/12/19) Objective Last 24 Hour Vital Signs Date Time Temp Pulse Resp B/P (MAP) Pulse Ox O2 Delivery O2 Flow Rate FiO2 12/20/19 09:54 108 136/50 12/20/19 09:00 Nasal Cannula 3.5 12/20/19 08:00 108 12/20/19 08:00 99.3 108 21 136/50 (78) 91 12/20/19 06:47 97 163/70 12/20/19 04:00 97 12/20/19 04:00 99.7 91 22 163/70 (101) 91 12/20/19 01:04 99.7 12/20/19 00:32 101 131/64 12/20/19 00:00 111 12/20/19 00:00 100.4 103 21 131/69 (89) 94 12/19/19 22:29 110 168/83 12/19/19 21:00 Nasal Cannula 2.0 12/19/19 20:00 123 12/19/19 20:00 102.2 110 22 168/83 (111) 97 12/19/19 19:15 95 Venturi Mask 4.0 31 12/19/19 19:15 105 20 97 Room Air 21 12/19/19 18:28 140 139/49 12/19/19 16:00 140 12/19/19 16:00 99.2 132 28 139/49 (79) 97 12/19/19 12:42 95 Venturi Mask 4.0 31 12/19/19 12:01 115 115/53 12/19/19 12:00 99.5 115 32 115/53 (73) 96 12/19/19 12:00 110 Intake and Output 12/19/19 12/20/19 19:00 07:00 Output Total 1000 ml 850 ml Balance -1000 ml -850 ml Output Urine Total 1000 ml 850 ml Laboratory Tests 12/19/19 17:05: Arterial Blood pH 7.409, Arterial Blood Partial Pressure CO2 37.3, Arterial Blood Partial Pressure O2 71.3L, Arterial Blood HCO3 23.1, Arterial Blood Oxygen Saturation 92.7L, Arterial Blood Base Excess -1.4, Eugene Test Positive 12/19/19 17:50: Sodium Level 152H, Potassium Level 5.2H, Chloride Level 113H, Carbon Dioxide Level 28, Anion Gap 11, Blood Urea Nitrogen 80H, Creatinine 2.2H, Estimat Glomerular Filtration Rate 22.3, Glucose Level 128H, Calcium Level 8.6, Pro-B- Type Natriuretic Peptide 2682H 12/20/19 06:49: Sodium Level 150H, Potassium Level 5.4H, Chloride Level 112H, Carbon Dioxide Level 29, Anion Gap 9, Blood Urea Nitrogen 75H, Creatinine 2.1H, Estimat Glomerular Filtration Rate 23.5, Glucose Level 148H, Calcium Level 9.4, White Blood Count 8.5, Red Blood Count 2.81L, Hemoglobin 7.7L, Hematocrit 25.1L, Mean Corpuscular Volume 89, Mean Corpuscular Hemoglobin 27.2, Mean Corpuscular Hemoglobin Concent 30.5L, Red Cell Distribution Width 16.7H, Platelet Count 152 , Mean Platelet Volume 6.7, Neutrophils (%) (Auto) , Lymphocytes (%) (Auto) , Monocytes (%) (Auto) , Eosinophils (%) (Auto) , Basophils (%) (Auto) , Differential Total Cells Counted 100, Neutrophils % (Manual) 90H, Lymphocytes % (Manual) 6L, Monocytes % (Manual) 4, Eosinophils % (Manual) 0, Basophils % ( Manual) 0, Band Neutrophils 0, Platelet Estimate Adequate, Platelet Morphology Normal, Hypochromasia 1+, Anisocytosis 1+, Total Bilirubin 1.4H, Direct Bilirubin 0.9H, Aspartate Amino Transf (AST/SGOT) 46H, Alanine Aminotransferase (ALT/SGPT) 30, Alkaline Phosphatase 71, Total Protein 7.6, Albumin 2.1L, Globulin 5.5, Albumin/Globulin Ratio 0.4L Height (Feet): 5 Height (Inches): 6.00 Weight (Pounds): 298 General Appearance: confused, other - moans EENT: other - eyes shut Neck: normal alignment Cardiovascular: regularly irregular Respiratory/Chest: rhonchi - bilaterally Abdomen: non tender, soft Edema: no edema noted Arm (L), no edema noted Arm (R), no edema noted Leg (L), no edema noted Leg (R), no edema noted Pedal (L), no edema noted Pedal (R), no edema noted Generalized Neurologic: motor weakness, disoriented Benjamin Dumont MD Dec 20, 2019 11:43
[2019-12-20 12:00] VITALS: BP 139/67
[2019-12-20] MEDS: dilTIAZem HCl 90mg tab NG SCH ×3 (12:11→23:49)
--- NOTE | 2019-12-20 12:14 | General Progress Note ---
Assessment/Plan Problem List: (1) CKD (chronic kidney disease) stage 3, GFR 30-59 ml/min ICD Codes: N18.3 - Chronic kidney disease, stage 3 (moderate) SNOMED: 363366804 (2) COPD (chronic obstructive pulmonary disease) ICD Codes: J44.9 - Chronic obstructive pulmonary disease, unspecified SNOMED: 69910165 (3) Smoker ICD Codes: F17.200 - Nicotine dependence, unspecified, uncomplicated SNOMED: 05002129 (4) GERD (gastroesophageal reflux disease) ICD Codes: K21.9 - Gastro-esophageal reflux disease without esophagitis SNOMED: 595110493 (5) Atrial fibrillation with RVR ICD Codes: I48.91 - Unspecified atrial fibrillation SNOMED: 695005557354861 Status: stable Assessment/Plan: s/p ngt placement ppi bid fu H&H monitor labs bowel regimen pending thoracentesis needs cardiac clearance [facility] GI procedures>> not clear for now start NGTF on Eliquis Subjective ROS Limited/Unobtainable: No Allergies: Coded Allergies: ERYTHROMYCIN BASE (Verified Allergy, Severe, 12/12/19) HALOPERIDOL (Verified Allergy, Unknown, 12/12/19) VANCOMYCIN (Unverified Adverse Reaction, Intermediate, Shortness of Breath , 12/12/19) Objective Last 24 Hour Vital Signs Date Time Temp Pulse Resp B/P (MAP) Pulse Ox O2 Delivery O2 Flow Rate FiO2 12/20/19 12:11 108 139/67 12/20/19 12:00 100.6 108 20 139/67 (91) 90 12/20/19 09:54 108 136/50 12/20/19 09:00 Nasal Cannula 3.5 12/20/19 08:00 108 12/20/19 08:00 99.3 108 21 136/50 (78) 91 12/20/19 06:47 97 163/70 12/20/19 04:00 97 12/20/19 04:00 99.7 91 22 163/70 (101) 91 12/20/19 01:04 99.7 12/20/19 00:32 101 131/64 12/20/19 00:00 111 12/20/19 00:00 100.4 103 21 131/69 (89) 94 12/19/19 22:29 110 168/83 12/19/19 21:00 Nasal Cannula 2.0 12/19/19 20:00 123 12/19/19 20:00 102.2 110 22 168/83 (111) 97 12/19/19 19:15 95 Venturi Mask 4.0 31 12/19/19 19:15 105 20 97 Room Air 21 12/19/19 18:28 140 139/49 12/19/19 16:00 140 12/19/19 16:00 99.2 132 28 139/49 (79) 97 12/19/19 12:42 95 Venturi Mask 4.0 31 Intake and Output 12/19/19 12/20/19 19:00 07:00 Output Total 1000 ml 850 ml Balance -1000 ml -850 ml Output Urine Total 1000 ml 850 ml Laboratory Tests 12/19/19 17:05: Arterial Blood pH 7.409, Arterial Blood Partial Pressure CO2 37.3, Arterial Blood Partial Pressure O2 71.3L, Arterial Blood HCO3 23.1, Arterial Blood Oxygen Saturation 92.7L, Arterial Blood Base Excess -1.4, Eugene Test Positive 12/19/19 17:50: Sodium Level 152H, Potassium Level 5.2H, Chloride Level 113H, Carbon Dioxide Level 28, Anion Gap 11, Blood Urea Nitrogen 80H, Creatinine 2.2H, Estimat Glomerular Filtration Rate 22.3, Glucose Level 128H, Calcium Level 8.6, Pro-B- Type Natriuretic Peptide 2682H 12/20/19 06:49: Sodium Level 150H, Potassium Level 5.4H, Chloride Level 112H, Carbon Dioxide Level 29, Anion Gap 9, Blood Urea Nitrogen 75H, Creatinine 2.1H, Estimat Glomerular Filtration Rate 23.5, Glucose Level 148H, Calcium Level 9.4, White Blood Count 8.5, Red Blood Count 2.81L, Hemoglobin 7.7L, Hematocrit 25.1L, Mean Corpuscular Volume 89, Mean Corpuscular Hemoglobin 27.2, Mean Corpuscular Hemoglobin Concent 30.5L, Red Cell Distribution Width 16.7H, Platelet Count 152 , Mean Platelet Volume 6.7, Neutrophils (%) (Auto) , Lymphocytes (%) (Auto) , Monocytes (%) (Auto) , Eosinophils (%) (Auto) , Basophils (%) (Auto) , Differential Total Cells Counted 100, Neutrophils % (Manual) 90H, Lymphocytes % (Manual) 6L, Monocytes % (Manual) 4, Eosinophils % (Manual) 0, Basophils % ( Manual) 0, Band Neutrophils 0, Platelet Estimate Adequate, Platelet Morphology Normal, Hypochromasia 1+, Anisocytosis 1+, Total Bilirubin 1.4H, Direct Bilirubin 0.9H, Aspartate Amino Transf (AST/SGOT) 46H, Alanine Aminotransferase (ALT/SGPT) 30, Alkaline Phosphatase 71, Total Protein 7.6, Albumin 2.1L, Globulin 5.5, Albumin/Globulin Ratio 0.4L Height (Feet): 5 Height (Inches): 6.00 Weight (Pounds): 298 General Appearance: no apparent distress EENT: normal ENT inspection Neck: supple Cardiovascular: normal rate Respiratory/Chest: decreased breath sounds Abdomen: normal bowel sounds, non tender, soft Extremities: non-tender Mervin Victoria MD Dec 20, 2019 12:14
[2019-12-20 16:00] VITALS: BP 122/60
--- NOTE | 2019-12-20 16:27 | NUR ---
CASE MANAGEMENT:REVIEW 12/20/19 SI: E COLI UTI. COPD. ASP PNA 100.6 108 20 139/67 90% ON 3.5L/NC H/H-7.7/25.1 NA+150 K+5.4 BUN+75 CR+2.1 IS: NG TUBE CARDIZEM NG Q6 LOPRESSOR NG Q12 IV PROTONIX Q12 IV LINEZOLID Q12 IV MEROPENEM Q12 IVF@150/HR IV VENOFER QHS : [facility]LEMETRY [facility]US [facility]
--- NOTE | 2019-12-20 19:21 | NUR ---
HAND-OFF: Report given to El COHEN.
--- NOTE | 2019-12-20 19:39 | NUR ---
NURSE NOTES: Report received from Terese COHEN. Patient is awake and alert x 1. Patient is unable to follow commands, but opens eyes to name. Patient is noted to be yelling out, was endorsed to El COHEN that this is the baseline for the patient. Patient is being followed by psychiatry. Patient is noted to be on 3 liters of oxygen via nasal canula. Patient does not appear to be in respiratory distress at this time. patient is noted to be on bilateral soft wrist restraints, pules present and patient able to move extremities. No order renewal is needed at this time. Patient is noted to have G tube with Nepro running at 25 cc / hr. Patient is noted to have coffee ground in the gastric tube. This is due to GI bleed. Blood thinning medication on hold, okay to continue feeding. Patient is noted to have indwelling trivedi catheter draining yellow urine. Patient was noted to have potassium of 5.4 today. It was not endorsed to El COHEN if MD was aware. El COHEN paged Doctor Dumont regarding this, awaiting call back. It was endorsed to El COHEN that patient is a high fall risk and that patient had a fall during this admission. assistant mechanic is aware that patient is a high fall risk. Bed is locked, alarmed, and in lowest position. patient is near nurses station. Will continue to follow plan of care. Addendum: 12/20/19 at 2014 by El Rojo RN Correction: patient has an NG tube via left nare, not a G tube.
--- NOTE | 2019-12-20 19:59 | NUR ---
NURSE NOTES: Doctor Dumont aware of potassium level, no new orders needed. Doctor Dumont informed El COHEN that this does not need to be corrected at this time. Doctor Ballesteros paged regarding medication to assist with patient behavior.
[2019-12-20 20:00] VITALS: BP 159/69
--- NOTE | 2019-12-20 20:45 | NUR ---
NURSE NOTES: NG tube noted not to be in at insertion point marked. Patient noted to have oxygen saturation of 82 % on 3 liters of oxygen via nasal canula. Feeding stopped. Patient repositioned in bed. STAT xray ordered to check NG placement. RT called, RT placed patient on venturi mask at 12 liters of oxygen at 50 %.
[2019-12-20] MEDS: Miralax 17gm pkt NG SCH (21:00)
--- NOTE | 2019-12-20 21:02 | NUR ---
NURSE NOTES: xray obtained. Per technology resource teacher the NG tube does not appear to be in the stomach and requires advancement. Will advance NG tube and order xray again for placement. Will continue to hold feeding in the mean time.
--- NOTE | 2019-12-20 21:05 | NUR ---
NURSE NOTES: Charge Nurse Nelly aware. Will continue to hold feeding and medication until official x ray result is reported.
--- NOTE | 2019-12-20 21:20 | Diagnostic Imaging Report ---
EXAM: XR Abdomen, 2 Views CLINICAL HISTORY: NGT TECHNIQUE: Frontal view of the abdomen/pelvis with upright view of the abdomen. COMPARISON: 12/18/2019. FINDINGS: Lower thorax: Obscuration of the left lung base which may indicate atelectasis versus infiltrate versus effusion. Intraperitoneal space: No free air. Gastrointestinal tract: Distention of the right sided colonic loops, nonspecific. Bones/joints: Unremarkable. Tubes, lines and devices: The nasogastric tube has the tip at the level of the gastric fundus junction with the body. The sidehole is seen at the EG junction. IMPRESSION: 1. Nasogastric tube as described. Recommend advancing the nasogastric tube approximately 7 cm. 2. Mild nonspecific distention of the right-sided colon. 3. Left-sided dural effusion versus atelectasis versus infiltrate.
--- NOTE | 2019-12-20 21:27 | Psych Consult Progress Note ---
Psychiatry Progress Note Psychiatry Progress Note Subjective the pt now is agitated and screaming the rn called to get more meds. the pt is delusional moaning confused waxing and waning o consciousness the pt is moaning and in pain Dr. Dumont didn't order pain meds and defer that to me/ the pt was tachycardic and inpain Medications Current Medications Medications (Trade) Dose Ordered Sig/Shiraz Route PRN Reason Start Time Stop Time Status Last Admin Dose Admin Acetaminophen (Tylenol) 650 mg Q4H PRN NG Temp >100.5 12/20/19 08:00 01/11/20 22:14 12/20/19 12:10 Acetaminophen (Tylenol) 650 mg Q4H PRN NG Mild Pain (Pain Scale 1-3) 12/20/19 08:00 01/11/20 22:14 Bacitracin (Bacitracin 15gm tube) 1 applic BID TOPIC 12/18/19 18:00 03/12/20 08:59 12/20/19 17:33 Clotrimazole (Lotrimin) 1 applic TWICE A DAY TOPIC 12/18/19 18:00 03/12/20 08:59 12/20/19 17:34 Dextrose (Dextrose 50%) 25 ml Q30M PRN IV Hypoglycemia 12/12/19 22:15 03/11/20 22:14 Dextrose (Dextrose 50%) 50 ml Q30M PRN IV Hypoglycemia 12/12/19 22:15 03/11/20 22:14 Diltiazem HCl (Cardizem Tab) 90 mg Q6HR NG 12/20/19 12:00 01/13/20 11:59 12/20/19 17:33 Docusate Sodium (Colace) 100 mg TWICE A DAY NG 12/20/19 09:00 01/19/20 08:59 12/20/19 17:33 Iron Sucrose 100 mg/Sodium Chloride 60 ml @ 240 mls/hr BEDTIME IV 12/19/19 21:00 12/23/19 21:14 12/20/19 02:16 Linezolid 300 ml @ 300 mls/hr Q12HR IVPB 12/19/19 21:00 12/26/19 20:59 12/20/19 08:56 Magnesium Hydroxide (Mom) 30 ml HSPRN PRN NG Constipation 12/20/19 08:15 10/2/20 22:14 Meropenem 500 mg/ Sodium Chloride 55 ml @ 110 mls/hr Q12H IVPB 12/19/19 16:00 12/24/19 15:59 12/20/19 16:47 Metoprolol Tartrate (Lopressor) 50 mg Q12HR NG 12/20/19 09:00 03/18/20 20:59 12/20/19 09:54 Nitroglycerin (Ntg) 0.4 mg Q5M PRN SL Prn Chest Pain 12/12/19 22:15 01/11/20 22:14 Ondansetron HCl (Zofran) 4 mg Q6H PRN IVP Nausea & Vomiting 12/12/19 22:15 01/11/20 22:14 12/13/19 02:56 Pantoprazole (Protonix) 40 mg EVERY 12 HOURS IVP 12/19/19 21:00 01/18/20 20:59 12/20/19 08:48 Polyethylene Glycol (Miralax) 17 gm BEDTIME NG 12/20/19 21:00 01/18/20 20:59 Sodium Chloride 1,000 ml @ 150 mls/hr Q6H40M IV 12/18/19 22:00 01/17/20 21:59 12/20/19 14:53 Neurological/Psychiatric: Reports: anxiety, depressed, emotional problems Allergies: Coded Allergies: ERYTHROMYCIN BASE (Verified Allergy, Severe, 12/12/19) HALOPERIDOL (Verified Allergy, Unknown, 12/12/19) VANCOMYCIN (Unverified Adverse Reaction, Intermediate, Shortness of Breath , 12/12/19) Objective Data Height (Feet): 5 Height (Inches): 6.00 Weight (Pounds): 298 General Appearance: no apparent distress Additional Comments: confused. Mood is anxious. Affect is flat. Thought process, there is a paucity of thought content. Thought content, no suicidal or homicidal ideation. Cognition is impaired. Insight and judgment is impaired. Assessment/Plan [place] I: haldol im prn morphine low dose 1mg q 6 prn Status: stable Status Narrative haldol im prn morphine low dose 1mg q 6 prn Assessment/Plan: haldol im prn morphine low dose 1mg q 6 prn Harris Ballesteros MD Dec 20, 2019 21:27
--- NOTE | 2019-12-20 22:08 | NUR ---
NURSE NOTES: NG tube advanced per recommendations of radiologist. NG tube now at 60 cm via left nare. X ray order placed. Will continue to hold medications until confirmation that NG tube is in stomach.
[2019-12-20] MEDS: LORazepam Inj 2mg/ml 1ml IM PRN (22:20)
--- NOTE | 2019-12-20 22:33 | NUR ---
NURSE NOTES: xray obtained. Will await for official results. Will continue to hold feeding and NG medications.
--- NOTE | 2019-12-20 23:03 | Diagnostic Imaging Report ---
EXAM: XR Abdomen, 2 Views CLINICAL HISTORY: NGT TECHNIQUE: Frontal view of the abdomen/pelvis with upright view of the abdomen. COMPARISON: 12/20/2019. FINDINGS: Lower thorax: Obscuration of the left costophrenic angle suggestive of pleural effusion. Intraperitoneal space: No free air. Gastrointestinal tract: Unremarkable. No dilation. Bones/joints: Unremarkable. Tubes, lines and devices: The nasogastric tube has the tip at the mid inferior aspect of the gastric body. Other findings: Nonspecific gas pattern. IMPRESSION: Nasogastric tube as described.
--- NOTE | 2019-12-20 23:07 | NUR ---
NURSE NOTES: NG tube tip in the gastric body per radiologist report.
--- NOTE | 2019-12-20 23:30 | NUR ---
NURSE NOTES: Restarted feeding.
--- NOTE | 2019-12-20 23:37 | NUR ---
NURSE NOTES: Called [facility] to have 2100 medications retimed for now since NG is now in place and patent.
[2019-12-20] MEDS ORDERED: Metoprolol Tartrate 50mg tab NG SCH (23:45)
[2019-12-20] MEDS ORDERED: Miralax 17gm pkt NG SCH (23:45)
[2019-12-21] VITALS (7 sets, daily range): BP systolic 149–175; BP diastolic 61–86
--- NOTE | 2019-12-21 01:30 | Cardiology Progress Note ---
Subjective DATE OF SERVICE: Dec 20, 2019 Still somnolent; unable to take most oral meds Monitor: AFIb with rapid rates improving No SOB or hypoxia at rest. Now with coffee ground material in NGTube Venous Duplex: negative for DVT Renal fxn and free water deficit still impaired Objective Last 24 Hour Vital Signs Date Time Temp Pulse Resp B/P (MAP) Pulse Ox O2 Delivery O2 Flow Rate FiO2 12/21/19 00:00 99.3 113 20 175/86 (115) 95 12/21/19 00:00 114 12/20/19 23:49 101 175/86 12/20/19 23:49 101 175/86 12/20/19 22:50 100 21 152/85 97 12/20/19 22:20 100 21 152/85 97 12/20/19 21:00 Venturi Mask 12.0 12/20/19 20:00 106 12/20/19 20:00 99.1 100 21 159/69 (99) 95 12/20/19 19:02 97 Nasal Cannula 4.0 36 12/20/19 17:33 93 122/60 12/20/19 16:00 98.1 80 19 122/60 (80) 91 12/20/19 16:00 93 12/20/19 12:40 99.4 12/20/19 12:11 108 139/67 12/20/19 12:00 95 12/20/19 12:00 100.6 108 20 139/67 (91) 90 12/20/19 09:54 108 136/50 12/20/19 09:00 Nasal Cannula 3.5 12/20/19 08:00 108 12/20/19 08:00 99.3 108 21 136/50 (78) 91 12/20/19 06:47 97 163/70 12/20/19 04:00 97 12/20/19 04:00 99.7 91 22 163/70 (101) 91 ROS: unchanged from 12/12/19 HEENT: other - NGtube LUNGS: diminished breath sounds CARDIAC: normal S1 and S2, irregularly irregular ABDOMEN: other - obese EXTREMITIES: moderate edema - mostly non pitting Laboratory Tests Test 12/20/19 06:49 12/20/19 20:08 White Blood Count 8.5 K/UL (4.8-10.8) Red Blood Count 2.81 M/UL (4.20-5.40) L Hemoglobin 7.7 G/DL (12.0-16.0) L Hematocrit 25.1 % (37.0-47.0) L Mean Corpuscular Volume 89 FL (80-99) Mean Corpuscular Hemoglobin 27.2 PG (27.0-31.0) Mean Corpuscular Hemoglobin Concent 30.5 G/DL (32.0-36.0) L Red Cell Distribution Width 16.7 % (11.6-14.8) H Platelet Count 152 K/UL (150-450) Mean Platelet Volume 6.7 FL (6.5-10.1) Neutrophils (%) (Auto) % (45.0-75.0) Lymphocytes (%) (Auto) % (20.0-45.0) Monocytes (%) (Auto) % (1.0-10.0) Eosinophils (%) (Auto) % (0.0-3.0) Basophils (%) (Auto) % (0.0-2.0) Differential Total Cells Counted 100 Neutrophils % (Manual) 90 % (45-75) H Lymphocytes % (Manual) 6 % (20-45) L Monocytes % (Manual) 4 % (1-10) Eosinophils % (Manual) 0 % (0-3) Basophils % (Manual) 0 % (0-2) Band Neutrophils 0 % (0-8) Platelet Estimate Adequate Platelet Morphology Normal Hypochromasia 1+ Anisocytosis 1+ Sodium Level 150 MMOL/L (136-145) H Potassium Level 5.4 MMOL/L (3.5-5.1) H Chloride Level 112 MMOL/L (98-107) H Carbon Dioxide Level 29 MMOL/L (21-32) Anion Gap 9 mmol/L (5-15) Blood Urea Nitrogen 75 mg/dL (7-18) H Creatinine 2.1 MG/DL (0.55-1.30) H Estimat Glomerular Filtration Rate 23.5 mL/min (>60) Glucose Level 148 MG/DL (74-106) H Calcium Level 9.4 MG/DL (8.5-10.1) Total Bilirubin 1.4 MG/DL (0.2-1.0) H Direct Bilirubin 0.9 MG/DL (0.0-0.3) H Aspartate Amino Transf (AST/SGOT) 46 U/L (15-37) H Alanine Aminotransferase (ALT/SGPT) 30 U/L (12-78) Alkaline Phosphatase 71 U/L (46-116) Total Protein 7.6 G/DL (6.4-8.2) Albumin 2.1 G/DL (3.4-5.0) L Globulin 5.5 g/dL Albumin/Globulin Ratio 0.4 (1.0-2.7) L POC Whole Blood Glucose Pending Microbiology Date/Time Source Procedure Growth Status 12/18/19 23:20 Blood Blood Culture - Preliminary NO GROWTH AFTER 24 HOURS Resulted 12/18/19 23:15 Blood Blood Culture - Preliminary NO GROWTH AFTER 24 HOURS Resulted Assessment/Plan Assessment/Plan AFiB with RVR CHF, ac/chr diast - compensated BLE edema UTI with sepsis obesity COPD with bronchospasm Acute renal failure - worsening Pleural effusion GI bleeding Antimicrobials Titrate rate-control meds - hold digitalis for elevated levels. Maintain diltiazem and metoprolol. DC apixaban - hold anticoagulation due to GI bleeding. Hypotonic IVF until po intake improves and free water deficit corrected. Continued cardiac technician Thorocentesis under consideration. Jerome Meek MD Dec 21, 2019 01:29
--- NOTE | 2019-12-21 01:50 | NUR ---
NURSE NOTES: Informed by [place] quality assurance monitor final tech that patient had 16 beats of v tach at 0148. Patient was asleep during this episode. Patient returned to previous baseline rhythm. Charge Nurse Nelly marquis, will inform Doctor Gaviota in the morning per instructions of Nelly COHEN. This same patient had 12 beats of vtach during previous shift and Doctor Gaviota was made aware by the RN, and no new orders were given. Patient is currently asleep and in stable condition. Will continue to monitor and follow plan of care.
[2019-12-21] MEDS: LORazepam Inj 2mg/ml 1ml IM PRN ×3 (02:47→21:53)
[2019-12-21] MEDS: Meropenem 500 MG in NS 55 ML IVPB SCH ×2 (03:12→17:10)
--- NOTE | 2019-12-21 04:21 | NUR ---
NURSE NOTES: Bed bath done by El COHEN and nursing assistance. Optifoams on sacrum and bilateral heels removed and new ones applied. Patient is noted to have DTI on these areas of concern.
[2019-12-21] MEDS: dilTIAZem HCl 90mg tab NG SCH ×3 (05:38→17:44)
--- NOTE | 2019-12-21 06:24 | NUR ---
NURSE NOTES: Maury from the laboratory called El COHEN to inform El COHEN that the patient's blood cultures grew yeast. El COHEN paged Doctor Homer. No answer. Voice mail left. Awaiting call back. Charge Nurse Nelly marquis.
--- NOTE | 2019-12-21 07:22 | NUR ---
NURSE HAND-OFF REPORT: Important Events on Shift: The NG tube was found not to be in stomach at change of shift. Advanced and xray confirmation. Patient's blood cultures came back positive for yeast. Doctor Homer aware. Patient Status: full code Diet: Nepro @ 25 cc / hr. Pending Orders: none Pending Results/Labs:none Pending MD notification:none Latest Vital Signs: Temperature 97.7 , Pulse 88 , B/P 153 /72 , Respiratory Rate 20 , O2 SAT 95 , Venturi Mask, O2 Flow Rate 12.0 . Vital Sign Comment: slightly hypertensive. EKG Rhythm: Atrial Fibrillation Rhythm change?: N MD Notified?: Y -MD Gaviota [place] Response: Latest Abreu Fall Score: 95 Fall Risk: High Risk Safety Measures: Call light Within Reach, Bed Alarm Zone 2, Side Rails Side Rails x3, Bed position Low and Locked. Fall Precautions: Yellow Socks Yellow Gown Door Sign Patient Fall Education Report given to
--- NOTE | 2019-12-21 07:22 | NUR ---
NURSE NOTES: Received report from NOEL Gallegos. Patient AAO x0. Opens eyes on command, tracks and follows. Patient moaning, but does not respond intelligibly when asked if in pain. No acute distress. Breathing regular, shallow, 24 breaths per minute, with use of abdominal muscles. On Venturi mask 12L/50% FiO2, SPO2 97%. No cyanosis. Radial and femoral pulses, palpable, equal. Bilateral upper and lower extremities with pitting edema, capillary refill <3 seconds, mottled. R leg with hematoma and blistering, warm, tender to touch. IV intact, flushed patent, no redness or edema r/t IV site. [place] catheter draining cloudy, doretha urine to gravity. No BM. ABD large, soft, round, not tender. GT placement verified via auscultation, no residual, 60 cm at left nare, running tube feeds. Optifoam to sacrum and bilateral heel, pressure injury noted. Bed low and locked, call light in reach, side rails x2 raised, bed alarm on. Bilateral soft wrist restraints in place d/t pt fall risk and removing devices.
[2019-12-21] MEDS: Pantoprazole Inj IVP SCH ×2 (08:37→21:40)
[2019-12-21] MEDS: Docusate 100mg/10ml Liq NG SCH (08:38)
[2019-12-21] MEDS: Metoprolol Tartrate 50mg tab NG SCH (08:38)
[2019-12-21] MEDS: Bacitracin Oint 15gm Tube TOPIC SCH ×2 (08:39→17:44)
[2019-12-21 09:06] LABS: HEMATOCRIT 23.6 % (37.0-47.0); HEMOGLOBIN 7.2 G/DL (12.0-16.0); MEAN CORPUSCULAR VOLUME 89 FL (80-99); PLATELET COUNT 155 K/UL (150-450); RED BLOOD COUNT 2.64 M/UL (4.20-5.40); RED CELL DISTRIBUTION WIDTH 16.9 % (11.6-14.8)
--- NOTE | 2019-12-21 09:30 | NUR ---
PT NOTE Attempted to see patient for PT treatment. Patient sleeping, lethargic, unable to participate with PT. Patient not appropriate candidate for skilled inpatient PT intervention at this time due to lethargy and inability to follow commands. Will discharge patient from PT services at this time, can resume PT with MD order if patient's cognitive and medical conditions improve. Annmarie COHEN notified.
[2019-12-21 09:39] LABS: ALANINE AMINOTRANSFERASE 35 U/L (12-78); ALBUMIN/GLOBULIN RATIO 0.4 (1.0-2.7); ALKALINE PHOSPHATASE 87 U/L (46-116); ANION GAP 5 mmol/L (5-15); ASPARTATE AMINO TRANSFERASE 44 U/L (15-37); BLOOD UREA NITROGEN 70 mg/dL (7-18); CALCIUM 9.5 MG/DL (8.5-10.1); CARBON DIOXIDE 32 MMOL/L (21-32); CHLORIDE 114 MMOL/L (98-107); CREATINE KINASE 253 U/L (26-308); POTASSIUM 4.9 MMOL/L (3.5-5.1); SODIUM 151 MMOL/L (136-145)
--- NOTE | 2019-12-21 09:44 | General Progress Note ---
Assessment/Plan Problem List: (1) CKD (chronic kidney disease) stage 3, GFR 30-59 ml/min ICD Codes: N18.3 - Chronic kidney disease, stage 3 (moderate) SNOMED: 761488774 (2) COPD (chronic obstructive pulmonary disease) ICD Codes: J44.9 - Chronic obstructive pulmonary disease, unspecified SNOMED: 06033478 (3) Smoker ICD Codes: F17.200 - Nicotine dependence, unspecified, uncomplicated SNOMED: 53409101 (4) GERD (gastroesophageal reflux disease) ICD Codes: K21.9 - Gastro-esophageal reflux disease without esophagitis SNOMED: 889408470 (5) Atrial fibrillation with RVR ICD Codes: I48.91 - Unspecified atrial fibrillation SNOMED: 995278380368588 Status: stable Assessment/Plan: s/p ngt placement ppi bid fu H&H monitor labs bowel regimen pending possible thoracentesis needs cardiac clearance for GI procedures>> not clear for now NGTF on Eliquis Subjective ROS Limited/Unobtainable: No Allergies: Coded Allergies: ERYTHROMYCIN BASE (Verified Allergy, Severe, 12/12/19) HALOPERIDOL (Verified Allergy, Unknown, 12/12/19) VANCOMYCIN (Unverified Adverse Reaction, Intermediate, Shortness of Breath , 12/12/19) Objective Last 24 Hour Vital Signs Date Time Temp Pulse Resp B/P (MAP) Pulse Ox O2 Delivery O2 Flow Rate FiO2 12/21/19 08:38 91 150/61 12/21/19 08:00 97.7 91 19 150/61 (90) 96 12/21/19 08:00 Venturi Mask 12.0 12/21/19 05:38 88 153/72 12/21/19 05:34 88 153/72 (99) 12/21/19 04:00 97.7 97 20 160/75 (103) 95 12/21/19 04:00 92 12/21/19 03:17 92 20 140/82 95 12/21/19 02:47 101 20 145/74 93 12/21/19 00:00 99.3 113 20 175/86 (115) 95 12/21/19 00:00 114 12/20/19 23:49 101 175/86 12/20/19 23:49 101 175/86 12/20/19 22:20 100 21 152/85 97 12/20/19 21:00 Venturi Mask 12.0 12/20/19 20:00 106 12/20/19 20:00 99.1 100 21 159/69 (99) 95 12/20/19 19:02 97 Nasal Cannula 4.0 36 12/20/19 17:33 93 122/60 12/20/19 16:00 98.1 80 19 122/60 (80) 91 12/20/19 16:00 93 12/20/19 12:40 99.4 12/20/19 12:11 108 139/67 12/20/19 12:00 95 12/20/19 12:00 100.6 108 20 139/67 (91) 90 12/20/19 09:54 108 136/50 Intake and Output 12/20/19 12/21/19 19:00 07:00 Intake Total 175 ml 1775 ml Balance 175 ml 1775 ml Free Water 60 ml IV Total 150 ml 1465 ml Tube Feeding 25 ml 250 ml Laboratory Tests 12/20/19 20:08: POC Whole Blood Glucose [Pending] 12/21/19 07:50: White Blood Count 7.0, Red Blood Count 2.64L, Hemoglobin 7.2L, Hematocrit 23.6L , Mean Corpuscular Volume 89, Mean Corpuscular Hemoglobin 27.2, Mean Corpuscular Hemoglobin Concent 30.5L, Red Cell Distribution Width 16.9H, Platelet Count 155, Mean Platelet Volume 7.5, Neutrophils (%) (Auto) , Lymphocytes (%) (Auto) , Monocytes (%) (Auto) , Eosinophils (%) (Auto) , Basophils (%) (Auto) , Neutrophils % (Manual) [Pending], Lymphocytes % (Manual) [Pending], Platelet Estimate [Pending], Platelet Morphology [Pending], Sodium Level 151H, Potassium Level 4.9, Chloride Level 114H, Carbon Dioxide Level 32, Anion Gap 5, Blood Urea Nitrogen 70H, Creatinine 2.0H, Estimat Glomerular Filtration Rate 24.9, Glucose Level 156H, Calcium Level 9.5, Total Bilirubin 1.0 , Aspartate Amino Transf (AST/SGOT) 44H, Alanine Aminotransferase (ALT/SGPT) 35 , Alkaline Phosphatase 87, Total Creatine Kinase 253, Total Protein 7.4, Albumin 2.0L, Globulin 5.4, Albumin/Globulin Ratio 0.4L, Lipase 221 Height (Feet): 5 Height (Inches): 6.00 Weight (Pounds): 298 General Appearance: no apparent distress EENT: normal ENT inspection Neck: supple Cardiovascular: normal rate Respiratory/Chest: decreased breath sounds Abdomen: normal bowel sounds, non tender, soft Extremities: non-tender, swelling Mervin Victoria MD Dec 21, 2019 09:44
[2019-12-21] MEDS: Micafungin 100 MG in NS 110 ML IVPB SCH (10:08)
--- NOTE | 2019-12-21 10:40 | NUR ---
RD ASSESSMENT & RECOMMENDATIONS SEE CARE ACTIVITY FOR COMPLETE ASSESSMENT DAILY ESTIMATED NEEDS: Needs based on Obesity, Cardiac, DM, NATALIE/ 80.5kg 20-23 kcals/kg 5471-9657 total kcals 0.8-1.0 (increase w/ renal improvement) g protein/kg 64-80 g total protein 20-25 mL/kg 3375-4904 total fluid mLs NUTRITION DIAGNOSIS: 1) Class III Obesity R/T lifestyle factors? excessive energy intake as evidenced by pt w/ BMI >50, @ 245% IBW. 2) Altered nutrition related lab values R/T diabetes, altered lipid metabolism, cardiac hx, NATALIE as evidenced by A1C of 7.1, elev triglyceride 239, elev BNP 4671, elev creat (1.7->4.3 -> 2.0 trend back down), elev BUN (92 -> 70 trend back down), elev K (5.4, 5.2 -> wnl), CURRENT TF:Nepro @ 25ml/hr x 24 hrs PO DIET RECOMMENDATIONS: when appropriate for diet -> RENAL, CCHO MED (texture per QUALITY ASSURANCE INSPECTOR) ENTERAL NUTRITION RECOMMENDATIONS: Nepro @ 37ml/hr x 24 hrs to provide 888ml, 1598kcal, 71g prot, 640ml free water * Increase goal rate to 37m/hr as tolerated to meet 100% est kcal/prot needs * HOB over 30 degrees/ water flush per MD ADDITIONAL RECOMMENDATIONS: 1) Calibrated bedscale wt 2) Rec NISS- A1C of 7.1 3) Monitor renal fxn and lytes: creat now trending back down, K wnl -> check phos 4) Wound healing: add Nephrovite x 1, Armand BID via NGT 5) Record BMs: not updated since 12/14 6) Consider adjusting IVF: on 1/2NS @ 150ml/hr, consistently elev Na
--- NOTE | 2019-12-21 10:42 | NUR ---
RADIOLOGY DEPT., CHEST X-RAY DONE.-P.DYE
--- NOTE | 2019-12-21 11:37 | Pulmonology Progress Note ---
Luz Bowen STORE CLERK CASHIER 12/21/19 1137: Subjective ROS Limited/Unobtainable: Yes Allergies: Coded Allergies: ERYTHROMYCIN BASE (Verified Allergy, Severe, 12/12/19) HALOPERIDOL (Verified Allergy, Unknown, 12/12/19) VANCOMYCIN (Unverified Adverse Reaction, Intermediate, Shortness of Breath , 12/12/19) Subjective on O2 via VM , usually gets VM at the [facility] and thru the night CXR with bilateral interstitial and airspace edema and some perihilar atelectasis on the left. creat started to trend down BNP trending down no fevers since yesterday, no leukocytosis BCX 0/7 + yeast, started on Micafungin ? source CXR pending for today creat trending down -2.0 Hgb down to 7.2 Objective Last 24 Hour Vital Signs Date Time Temp Pulse Resp B/P (MAP) Pulse Ox O2 Delivery O2 Flow Rate FiO2 12/21/19 08:38 91 150/61 12/21/19 08:00 97.7 91 19 150/61 (90) 96 12/21/19 08:00 Venturi Mask 12.0 12/21/19 08:00 100 12/21/19 05:38 88 153/72 12/21/19 05:34 88 153/72 (99) 12/21/19 04:00 97.7 97 20 160/75 (103) 95 12/21/19 04:00 92 12/21/19 03:17 92 20 140/82 95 12/21/19 02:47 101 20 145/74 93 12/21/19 00:00 99.3 113 20 175/86 (115) 95 12/21/19 00:00 114 12/20/19 23:49 101 175/86 12/20/19 23:49 101 175/86 12/20/19 22:20 100 21 152/85 97 12/20/19 21:00 Venturi Mask 12.0 12/20/19 20:00 106 12/20/19 20:00 99.1 100 21 159/69 (99) 95 12/20/19 19:02 97 Nasal Cannula 4.0 36 12/20/19 17:33 93 122/60 12/20/19 16:00 98.1 80 19 122/60 (80) 91 12/20/19 16:00 93 9/10/20 12:40 99.4 12/20/19 12:11 108 139/67 12/20/19 12:00 95 12/20/19 12:00 100.6 108 20 139/67 (91) 90 Intake and Output 12/20/19 12/21/19 19:00 07:00 Intake Total 175 ml 2010 ml Balance 175 ml 2010 ml Free Water 120 ml IV Total 150 ml 1615 ml Tube Feeding 25 ml 275 ml Objective General Appearance: morbidly obese , asleep, but easily arousable female in NAD Lines, tubes and drains: peripheral HEENT: normocephalic, atraumatic, anicteric, NGT in , O2 via VM Neck: non-tender Respiratory/Chest: chest wall non-tender, no accessory muscle use, decreased breath sounds Cardiovascular/Chest: irregularly irregular - A fib , rate overall controlled now , distant heart sounds Abdomen: normal bowel sounds, non tender , obese, soft Extremities: no calf tenderness, moderate edema - +2 BLE, R knee with large hematoma, edema, Skin Exam: warm/dry, multiple tattoos Neurologic: abnormal gait - w/chair bound , asleep but easily arousable Musculoskeletal: normal muscle bulk Microbiology Date/Time Source Procedure Growth Status 12/18/19 23:20 Blood Blood Culture - Preliminary NO GROWTH AFTER 48 HOURS Resulted 12/18/19 23:15 Blood Blood Culture - Preliminary NO GROWTH AFTER 48 HOURS Resulted Laboratory Tests 12/20/19 20:08: POC Whole Blood Glucose [Pending] 12/21/19 07:50: White Blood Count 7.0, Red Blood Count 2.64L, Hemoglobin 7.2L, Hematocrit 23.6L , Mean Corpuscular Volume 89, Mean Corpuscular Hemoglobin 27.2, Mean Corpuscular Hemoglobin Concent 30.5L, Red Cell Distribution Width 16.9H, Platelet Count 155, Mean Platelet Volume 7.5, Neutrophils (%) (Auto) , Lymphocytes (%) (Auto) , Monocytes (%) (Auto) , Eosinophils (%) (Auto) , Basophils (%) (Auto) , Neutrophils % (Manual) [Pending], Lymphocytes % (Manual) [Pending], Platelet Estimate [Pending], Platelet Morphology [Pending], Sodium Level 151H, Potassium Level 4.9, Chloride Level 114H, Carbon Dioxide Level 32, Anion Gap 5, Blood Urea Nitrogen 70H, Creatinine 2.0H, Estimat Glomerular Filtration Rate 24.9, Glucose Level 156H, Calcium Level 9.5, Total Bilirubin 1.0 , Aspartate Amino Transf (AST/SGOT) 44H, Alanine Aminotransferase (ALT/SGPT) 35 , Alkaline Phosphatase 87, Total Creatine Kinase 253, Total Protein 7.4, Albumin 2.0L, Globulin 5.4, Albumin/Globulin Ratio 0.4L, Lipase 221 Current Medications Medications (Trade) Dose Ordered Sig/Shiraz Route PRN Reason Start Time Stop Time Status Last Admin Dose Admin Acetaminophen (Tylenol) 650 mg Q4H PRN NG Temp >100.5 12/20/19 08:00 01/11/20 22:14 12/20/19 12:10 Acetaminophen (Tylenol) 650 mg Q4H PRN NG Mild Pain (Pain Scale 1-3) 12/20/19 08:00 01/11/20 22:14 Bacitracin (Bacitracin 15gm tube) 1 applic BID TOPIC 12/18/19 18:00 03/12/20 08:59 12/21/19 08:39 Clotrimazole (Lotrimin) 1 applic TWICE A DAY TOPIC 12/18/19 18:00 03/12/20 08:59 12/21/19 08:39 Dextrose (Dextrose 50%) 25 ml Q30M PRN IV Hypoglycemia 12/12/19 22:15 03/11/20 22:14 Dextrose (Dextrose 50%) 50 ml Q30M PRN IV Hypoglycemia 12/12/19 22:15 03/11/20 22:14 Diltiazem HCl (Cardizem Tab) 90 mg Q6HR NG 12/20/19 12:00 01/13/20 11:59 12/21/19 05:38 Docusate Sodium (Colace) 100 mg TWICE A DAY NG 12/20/19 09:00 01/19/20 08:59 12/21/19 08:38 Iron Sucrose 100 mg/Sodium Chloride 60 ml @ 240 mls/hr BEDTIME IV 12/19/19 21:00 12/23/19 21:14 12/20/19 21:40 Linezolid 300 ml @ 300 mls/hr Q12HR IVPB 12/19/19 21:00 12/26/19 20:59 12/21/19 08:38 Lorazepam (Ativan 2mg/ml 1ml) 1 mg Q4H PRN IM Agitation 12/20/19 21:30 12/27/19 21:29 12/21/19 02:47 Magnesium Hydroxide (Mom) 30 ml HSPRN PRN NG Constipation 12/20/19 08:15 01/11/20 22:14 Meropenem 500 mg/ Sodium Chloride 55 ml @ 110 mls/hr Q12H IVPB 12/19/19 16:00 12/24/19 15:59 12/21/19 03:12 Metoprolol Tartrate (Lopressor) 50 mg Q12HR NG 12/20/19 09:00 03/18/20 20:59 12/21/19 08:38 Micafungin Sodium 100 mg/Sodium Chloride 110 ml @ 110 mls/hr Q24H IVPB 12/21/19 09:00 12/28/19 08:59 12/21/19 10:08 Nitroglycerin (Ntg) 0.4 mg Q5M PRN SL Prn Chest Pain 12/12/19 22:15 01/11/20 22:14 Ondansetron HCl (Zofran) 4 mg Q6H PRN IVP Nausea & Vomiting 12/12/19 22:15 01/11/20 22:14 12/13/19 02:56 Pantoprazole (Protonix) 40 mg EVERY 12 HOURS IVP 12/19/19 21:00 01/18/20 20:59 12/21/19 08:37 Polyethylene Glycol (Miralax) 17 gm BEDTIME NG 12/20/19 21:00 01/18/20 20:59 Risperidone (RisperDAL) 2 mg BEDTIME NG 12/21/19 21:00 02/04/20 20:59 Sodium Chloride 1,000 ml @ 150 mls/hr Q6H40M IV 12/18/19 22:00 01/17/20 21:59 12/21/19 02:46 Assessment/Plan Assessment/Plan ASSESSMENT sepsis fungemia UTI with E coli ESBL UTI VRE possible aspiration PNA COPD Bronchospasm Atrial fibrillation with rapid ventricular response Congestive heart failure Acute renal failure on CKD Severe anemia Status post ground fall Tobacco dependency Morbid obesity probably GARY Homeless R knee edema and hematoma, likely sprain /strain post fall PLAN OF CARE tele hold steroids , given acute renal failure, no wheezing, s/p loading dose of steroids in ED closely monitor resp status and oxygenation O2 titrate to keep sat above 92% pulm toilet with Atrovent ATC and Xopenex PRN Venous Duplex BLE -NGT ABG 12/18 ok on O2 via NC pro BNP trending down gets VM over night usually, during the day transition to NC patinet likely with GARY, needs OP polysomnogram if agrees CXR 12/13 with equivocal mild interstitial congestion, unchanged , cardiomegaly UCX+ E coli ESBL, on meropenem as per ID leukocytosis resolved CXR 12/16 no change BCX 12/16 04/12 + yeast BCX 12/17 NGTD UCX 12/16 VRE CXR today 12/20 SCX 12/20 now on meropenem , micafungin and Zyvox X ray R knee given fall 12/15 , large hematoma, swelling-no fx or dislocation ice R knee and elevate CT head no acute IC pathology fall precautions prior declined Nicotine patch Hgb trending down off ASA and a/c for now rate control- per cardio recs: on BB, Cardizem and Digoxin monitor volumes pro BNP trending down ECHO with pEF no evidence of WMA GI prophylaxis renal US no hydro, BL nonobstructive stones IV hydration monitor renal parameters, lytes , creat trending down - per nephro management, avoid nephrotoxics as possible discussion on weight loss if receptive - not at this time; anxious and wants to go home pain management anxiolytic prn SW consult for placement case discussed and evaluated by supervising physician ivy mccarty for a consult! Igor Carpio MD 12/21/19 1627: Subjective Allergies: Coded Allergies: ERYTHROMYCIN BASE (Verified Allergy, Severe, 12/12/19) HALOPERIDOL (Verified Allergy, Unknown, 12/12/19) VANCOMYCIN (Unverified Adverse Reaction, Intermediate, Shortness of Breath , 12/12/19) Assessment/Plan Assessment/Plan Patient seen and examined with STORE CLERK CASHIER. Agree with above A&P as it reflects our joint deliberations. Luz Bowen NP Dec 21, 2019 11:37 Igor Carpio MD Dec 21, 2019 16:27
--- NOTE | 2019-12-21 11:44 | NUR ---
APPLICATION ANALYST NOTE APPLICATION ANALYST orders received and acknowledged from Dr. Victoria for Bedside Swallow Evaluation. APPLICATION ANALYST re-attempted to see Patient today per orders. Per RN Annmarie, Patient continues to be not appropriate to participate in Bedside Swallow Evaluation due to cognitive behavioral deficits. APPLICATION ANALYST plans to f/u x1 prior to discontinuing orders as this is the second attempt to see Patient. Thank you for this referral! APPLICATION ANALYST [phone]
--- NOTE | 2019-12-21 13:13 | NUR ---
CASE MANAGEMENT:REVIEW 12/21/19 SI: E COLI UTI. COPD. ASP PNA. AFIB W/ PVC UNCONTROLLED HR . BLE EDEMA 99.3 113 20 175/86 95% ON VENTURI MASK 12 L H/H-7.2/23.6 NA+151 BUN+70 CR+2.0 ALB 2.0 IS: NG TUBE IV LINEZOLID Q12 IV MEROPENEM Q12 IVF@150/HR IV VENOFER QHS CARDIZEM NG Q6 LOPRESSOR NG Q12 IV PROTONIX Q12 : TELEMETRY STATUS DCP: FROM [facility]: DC NG TUBE ~WHEN STABLE SPUTUM CX CONT IVF @150ML/HR CONT IV ABX WEAN OFF O2 MONITOR NG DRAINAGE ~COFFEE GROUND
--- NOTE | 2019-12-21 13:24 | NUR ---
*-* INSURANCE *-* UPDATED CLINICALS AND REVIEWS HAVE BEEN FAXED TO: [facility] PH: NEL FARAH [phone] CLINICALS: [phone] AUTH# [id number]
--- NOTE | 2019-12-21 13:30 | NUR ---
NURSE NOTES: Huddled with MD Dumont. MD aware Hgb 7.2. Patient with R lower leg hematoma, warm to touch with blistering. Bilateral lower extremity swelling R greater than L. No new orders.
--- NOTE | 2019-12-21 13:33 | General Progress Note ---
Assessment/Plan Problem List: (1) Schizophrenia ICD Codes: F20.9 - Schizophrenia, unspecified SNOMED: 10632578 (2) GERD (gastroesophageal reflux disease) ICD Codes: K21.9 - Gastro-esophageal reflux disease without esophagitis SNOMED: 661358789 (3) Lymphadema (4) Smoker ICD Codes: F17.200 - Nicotine dependence, unspecified, uncomplicated SNOMED: 21169219 (5) Atrial fibrillation with rapid ventricular response ICD Codes: I48.91 - Unspecified atrial fibrillation SNOMED: 842298220546708 (6) CKD (chronic kidney disease) stage 3, GFR 30-59 ml/min ICD Codes: N18.3 - Chronic kidney disease, stage 3 (moderate) SNOMED: 288857134 (7) NATALIE (acute kidney injury) ICD Codes: N17.9 - Acute kidney failure, unspecified SNOMED: 0159041, 98824003 (8) COPD (chronic obstructive pulmonary disease) ICD Codes: J44.9 - Chronic obstructive pulmonary disease, unspecified SNOMED: 65763101 (9) UGI bleed ICD Codes: K92.2 - Gastrointestinal hemorrhage, unspecified SNOMED: 90298834 (10) Dysphagia ICD Codes: R13.10 - Dysphagia, unspecified SNOMED: 16769098, 447761289 (11) UTI (urinary tract infection) ICD Codes: N39.0 - Urinary tract infection, site not specified SNOMED: 39493903 (12) ESBL (extended spectrum beta-lactamase) producing bacteria infection ICD Codes: A49.9 - Bacterial infection, unspecified; Z16.12 - Extended spectrum beta lactamase (ESBL) resistance SNOMED: 995430363 (13) Dehydration ICD Codes: E86.0 - Dehydration SNOMED: 44174764 Status: stable Assessment/Plan: tele, , pulm care, PT eval, psych to see, placement, now worse natalie,prerenal place trivedi, I/O, update lab, hold diuretic , hydrate, coffee grounds in ng,+ hematoma RLE stop eliquis ancd asa, possible lovenox soon iv protonix, rx esbl uti,g+ cocci linezolid , remains high risk, psychotic and hallucinating d/w psych, ID, cardiology Subjective ROS Limited/Unobtainable: Yes Allergies: Coded Allergies: ERYTHROMYCIN BASE (Verified Allergy, Severe, 12/12/19) HALOPERIDOL (Verified Allergy, Unknown, 12/12/19) VANCOMYCIN (Unverified Adverse Reaction, Intermediate, Shortness of Breath , 12/12/19) Objective Last 24 Hour Vital Signs Date Time Temp Pulse Resp B/P (MAP) Pulse Ox O2 Delivery O2 Flow Rate FiO2 12/21/19 12:35 97.7 12/21/19 12:04 91 150/61 12/21/19 12:00 97.9 20 149/74 (99) 98 12/21/19 08:38 91 150/61 12/21/19 08:00 97.7 91 19 150/61 (90) 96 12/21/19 08:00 Venturi Mask 12.0 12/21/19 08:00 100 12/21/19 05:38 88 153/72 12/21/19 05:34 88 153/72 (99) 12/21/19 04:00 97.7 97 20 160/75 (103) 95 12/21/19 04:00 92 12/21/19 03:17 92 20 140/82 95 12/21/19 02:47 101 20 145/74 93 12/21/19 00:00 99.3 113 20 175/86 (115) 95 12/21/19 00:00 114 12/20/19 23:49 101 175/86 12/20/19 23:49 101 175/86 12/20/19 22:20 100 21 152/85 97 12/20/19 21:00 Venturi Mask 12.0 12/20/19 20:00 106 12/20/19 20:00 99.1 100 21 159/69 (99) 95 12/20/19 19:02 97 Nasal Cannula 4.0 36 12/20/19 17:33 93 122/60 12/20/19 16:00 98.1 80 19 122/60 (80) 91 12/20/19 16:00 93 Intake and Output 12/20/19 12/21/19 19:00 07:00 Intake Total 175 ml 2010 ml Balance 175 ml 2010 ml Free Water 120 ml IV Total 150 ml 1615 ml Tube Feeding 25 ml 275 ml Laboratory Tests 12/20/19 20:08: POC Whole Blood Glucose [Pending] 12/21/19 07:50: White Blood Count 7.0, Red Blood Count 2.64L, Hemoglobin 7.2L, Hematocrit 23.6L , Mean Corpuscular Volume 89, Mean Corpuscular Hemoglobin 27.2, Mean Corpuscular Hemoglobin Concent 30.5L, Red Cell Distribution Width 16.9H, Platelet Count 155, Mean Platelet Volume 7.5, Neutrophils (%) (Auto) , Lymphocytes (%) (Auto) , Monocytes (%) (Auto) , Eosinophils (%) (Auto) , Basophils (%) (Auto) , Neutrophils % (Manual) [Pending], Lymphocytes % (Manual) [Pending], Platelet Estimate [Pending], Platelet Morphology [Pending], Sodium Level 151H, Potassium Level 4.9, Chloride Level 114H, Carbon Dioxide Level 32, Anion Gap 5, Blood Urea Nitrogen 70H, Creatinine 2.0H, Estimat Glomerular Filtration Rate 24.9, Glucose Level 156H, Calcium Level 9.5, Total Bilirubin 1.0 , Aspartate Amino Transf (AST/SGOT) 44H, Alanine Aminotransferase (ALT/SGPT) 35 , Alkaline Phosphatase 87, Total Creatine Kinase 253, Total Protein 7.4, Albumin 2.0L, Globulin 5.4, Albumin/Globulin Ratio 0.4L, Lipase 221 Height (Feet): 5 Height (Inches): 6.00 Weight (Pounds): 298 General Appearance: morbidly obese EENT: normal ENT inspection Neck: normal alignment Respiratory/Chest: lungs clear Abdomen: non tender Edema: trace edema Neurologic: disoriented Benjamin Dumont MD Dec 21, 2019 13:33
--- NOTE | 2019-12-21 14:29 | Consultation ---
History of Present Illness General Date patient seen: Dec 21, 2019 Reason for Hospitalization: Pain Present Illness HPI This is a 69-year-old female well-known to me from prior admission and care who is significantly obese and currently presented for pain abnormal labs undergoing HD. On admission not very mobile identified to have deep tissue injury surgery called to evaluate assist with care plan. Patient seen, patient evaluate, chart reviewed. Imaging reviewed. Allergies: Coded Allergies: ERYTHROMYCIN BASE (Verified Allergy, Severe, 12/12/19) HALOPERIDOL (Verified Allergy, Unknown, 12/12/19) VANCOMYCIN (Unverified Adverse Reaction, Intermediate, Shortness of Breath , 12/12/19) COVID-19 Screening Contact w/high risk pt: No Experienced COVID-19 symptoms?: No Medication History Scheduled Bacitracin (Bacitracin), 1 APPLIC TOPIC BID Bimatoprost (Lumigan), 1 DROP BOTH EYES HS, (Reported) Clotrimazole* (Lotrimin*), 1 APPLIC TOPIC TWICE A DAY Diltiazem Hcl* (Cardizem*), 60 MG ORAL EVERY 8 HOURS, (Reported) Divalproex Sodium* (Depakote*), 500 MG PO BID, (Reported) Docusate Sodium* (Docusate Sodium*), 200 MG ORAL TWICE A DAY Estrogens Conjugated (Premarin), 0.3 MG ORAL DAILY, (Reported) Latanoprost/Pf (Latanoprost 0.005% Eye Drop), 1 DROP OP DAILY, (Reported) Methocarbamol* (Robaxin-750*), 750 MG PO TID No Known Medications* (NKM - No Known Medications*), 0 ., (Reported) Pantoprazole* (Protonix*), 40 MG ORAL DAILY, (Reported) Scheduled PRN Acetaminophen (Tylenol), 650 MG ORAL Q6H PRN for Prn Pain/Headache/Temp > 101 Acetaminophen* (Tylenol Extra Strength*), 500 MG ORAL Q8H PRN for Prn Headache/ Temp > 101 Miscellaneous Medications Potassium Chloride (Potassium Chloride), 20 MEQ PO, (Reported) Unable to Obtain Medications (Unable To Obtain Meds), (Reported) Patient History Limited by: medical condition History Provided By: Patient, Medical Record, PMD Healthcare decision maker Resuscitation status Advanced Directive on File Past Medical/Surgical History Past Medical/Surgical History: (1) Constipation (2) Lactic acidosis (3) Tinea cruris (4) Onychomycosis (5) Emesis (6) Essential hypertension (7) Anemia (8) Cough (9) Depression (10) Opiate dependence (11) Pyelonephritis (12) Sepsis (13) Nausea and vomiting (14) Nausea (15) Left leg cellulitis (16) Infection due to ESBL-producing Escherichia coli (17) Chronic venous stasis (18) Opiate dependence (19) Opiate dependence (20) Abdominal pain (21) Chest pain (22) Chest pain (23) Obesity (24) Chronic ulcer of leg (25) Chronic ulcer of leg (26) Chronic ulcer of leg (27) ACS (acute coronary syndrome) (28) Acute chest pain (29) Encounter for dressing change or suture removal (30) Acute encephalopathy (31) Intractable nausea and vomiting (32) Change of dressing (33) Change of dressing (34) Change of dressing (35) Change of dressing (36) Change of dressing (37) Change of dressing (38) Change of dressing (39) ESBL urine (40) Lymphadema (41) Lymphedema (42) Lymphedema (43) Lymphedema (44) Lymphedema (45) Lymphedema (46) Lymphedema (47) Lymphedema (48) Lymphedema (49) Open wound of foot (50) Open wound of foot (51) cellulitis (52) Depression (53) Edema (54) Rash (55) Opiate dependence (56) UTI (urinary tract infection) (57) Encounter for wound re-check (58) Change of dressing (59) chronic lymphedema (60) chronic lymphedema (61) chronic lymphedema (62) hypertension uncontrolled (63) hypertension uncontrolled (64) hypertension uncontrolled (65) hypertension uncontrolled (66) hypertension uncontrolled (67) tenia corpus (68) Lymphedema of both lower extremities (69) Venous stasis ulcers (70) Cellulitis (71) Intertrigo (72) Chronic bronchitis (73) BMI 45.0-49.9, adult (74) Schizophrenia (75) HTN (hypertension) (76) Sciatica (77) Medication refill (78) Chest pain, atypical (79) Urinary tract infection (80) CHF exacerbation (81) History of schizophrenia (82) Atrial fibrillation with RVR (83) Schizophrenia (84) GERD (gastroesophageal reflux disease) (85) Smoker (86) Atrial fibrillation with rapid ventricular response (87) Lymphadema (88) COPD (chronic obstructive pulmonary disease) (89) CKD (chronic kidney disease) stage 3, GFR 30-59 ml/min (90) NATALIE (acute kidney injury) (91) Dehydration (92) Dysphagia (93) UTI (urinary tract infection) (94) UGI bleed (95) ESBL (extended spectrum beta-lactamase) producing bacteria infection Review of Systems Review of Symptoms General ROS: no weight loss or fever Psychological ROS: no depression or mood changes, no memory loss Ophthalmic ROS: no visual changes or eye irritation ENT ROS: no nasal congestion, hearing loss, dizziness Allergy and Immunology ROS: no allergic symptoms or urticaria Hematological and Lymphatic ROS: no swollen glands, unusual bleeding or bruising Endocrine ROS: no polyuria, polydipsia, weight changes, temperature intolerance Respiratory ROS: no cough, shortness of breath, or wheezing Cardiovascular ROS: no chest pain or dyspnea on exertion Gastrointestinal ROS: denies abdominal pain, bright red blood in stool. Musculoskeletal ROS: no myalgias or arthralgias Neurological ROS: no TIA or stroke symptoms Dermatological ROS: no new or changing skin lesions, rashes or pruritis Physical Exam Physical Exam General appearance: alert, cooperative, no distress, appears stated age Head: Normocephalic, without obvious abnormality, atraumatic Eyes: conjunctivae/corneas clear. PERRL, EOM's intact. Fundi benign Throat: Lips, mucosa, and tongue normal. Teeth and gums normal Neck: supple, symmetrical, trachea midline, no adenopathy, thyroid: not enlarged, symmetric, no tenderness/mass/nodules, no carotid bruit and no JVD Lungs: clear to auscultation bilaterally Heart: regular rate and rhythm, S1, S2 normal, no murmur, click, rub or gallop Abdomen: soft, non-tender. Bowel sounds normal. No masses, no organomegaly Extremities: extremities normal, atraumatic, no cyanosis or edema Pulses: 2+ and symmetric Skin: Skin color, texture, turgor normal. No rashes or lesions Neurologic: Grossly normal Last 24 Hour Vital Signs Date Time Temp Pulse Resp B/P (MAP) Pulse Ox O2 Delivery O2 Flow Rate FiO2 12/21/19 14:03 95 Venturi Mask 12.0 50 12/21/19 13:51 103 24 149/74 96 12/21/19 12:35 97.7 12/21/19 12:04 91 150/61 12/21/19 12:00 97.9 20 149/74 (99) 98 12/21/19 08:38 91 150/61 12/21/19 08:00 97.7 91 19 150/61 (90) 96 12/21/19 08:00 Venturi Mask 12.0 12/21/19 08:00 100 12/21/19 05:38 88 153/72 12/21/19 05:34 88 153/72 (99) 12/21/19 04:00 97.7 97 20 160/75 (103) 95 12/21/19 04:00 92 12/21/19 03:17 92 20 140/82 95 12/21/19 02:47 101 20 145/74 93 12/21/19 00:00 99.3 113 20 175/86 (115) 95 12/21/19 00:00 114 12/20/19 23:49 101 175/86 12/20/19 23:49 101 175/86 12/20/19 22:20 100 21 152/85 97 12/20/19 21:00 Venturi Mask 12.0 12/20/19 20:00 106 12/20/19 20:00 99.1 100 21 159/69 (99) 95 12/20/19 19:02 97 Nasal Cannula 4.0 36 12/20/19 17:33 93 122/60 12/20/19 16:00 98.1 80 19 122/60 (80) 91 12/20/19 16:00 93 Intake and Output 12/20/19 12/21/19 19:00 07:00 Intake Total 175 ml 2009 ml Balance 175 ml 2010 ml Free Water 120 ml IV Total 150 ml 1615 ml Tube Feeding 25 ml 275 ml Laboratory Tests Test 12/20/19 20:08 12/21/19 07:50 POC Whole Blood Glucose Pending White Blood Count 7.0 K/UL (4.8-10.8) Red Blood Count 2.64 M/UL (4.20-5.40) L Hemoglobin 7.2 G/DL (12.0-16.0) L Hematocrit 23.6 % (37.0-47.0) L Mean Corpuscular Volume 89 FL (80-99) Mean Corpuscular Hemoglobin 27.2 PG (27.0-31.0) Mean Corpuscular Hemoglobin Concent 30.5 G/DL (32.0-36.0) L Red Cell Distribution Width 16.9 % (11.6-14.8) H Platelet Count 155 K/UL (150-450) Mean Platelet Volume 7.5 FL (6.5-10.1) Neutrophils (%) (Auto) % (45.0-75.0) Lymphocytes (%) (Auto) % (20.0-45.0) Monocytes (%) (Auto) % (1.0-10.0) Eosinophils (%) (Auto) % (0.0-3.0) Basophils (%) (Auto) % (0.0-2.0) Differential Total Cells Counted 100 Neutrophils % (Manual) 84 % (45-75) H Lymphocytes % (Manual) 8 % (20-45) L Monocytes % (Manual) 8 % (1-10) Eosinophils % (Manual) 0 % (0-3) Basophils % (Manual) 0 % (0-2) Band Neutrophils 0 % (0-8) Platelet Estimate Adequate Platelet Morphology Normal Hypochromasia 3+ Anisocytosis 1+ Sodium Level 151 MMOL/L (136-145) H Potassium Level 4.9 MMOL/L (3.5-5.1) Chloride Level 114 MMOL/L (98-107) H Carbon Dioxide Level 32 MMOL/L (21-32) Anion Gap 5 mmol/L (5-15) Blood Urea Nitrogen 70 mg/dL (7-18) H Creatinine 2.0 MG/DL (0.55-1.30) H Estimat Glomerular Filtration Rate 24.9 mL/min (>60) Glucose Level 156 MG/DL (74-106) H Calcium Level 9.5 MG/DL (8.5-10.1) Total Bilirubin 1.0 MG/DL (0.2-1.0) Aspartate Amino Transf (AST/SGOT) 44 U/L (15-37) H Alanine Aminotransferase (ALT/SGPT) 35 U/L (12-78) Alkaline Phosphatase 87 U/L (46-116) Total Creatine Kinase 253 U/L (26-308) Total Protein 7.4 G/DL (6.4-8.2) Albumin 2.0 G/DL (3.4-5.0) L Globulin 5.4 g/dL Albumin/Globulin Ratio 0.4 (1.0-2.7) L Lipase 221 U/L (73-393) Height (Feet): 5 Height (Inches): 6.00 Weight (Pounds): 298 Medications Current Medications Medications (Trade) Dose Ordered Sig/Shiraz Route PRN Reason Start Time Stop Time Status Last Admin Dose Admin Acetaminophen (Tylenol) 650 mg Q4H PRN NG Temp >100.5 12/20/19 08:00 01/11/20 22:14 12/20/19 12:10 Acetaminophen (Tylenol) 650 mg Q4H PRN NG Mild Pain (Pain Scale 1-3) 12/20/19 08:00 01/11/20 22:14 12/21/19 12:05 Bacitracin (Bacitracin 15gm tube) 1 applic BID TOPIC 12/18/19 18:00 03/12/20 08:59 12/21/19 08:39 Clotrimazole (Lotrimin) 1 applic TWICE A DAY TOPIC 12/18/19 18:00 03/12/20 08:59 12/21/19 08:39 Dextrose (Dextrose 50%) 25 ml Q30M PRN IV Hypoglycemia 12/12/19 22:15 03/11/20 22:14 Dextrose (Dextrose 50%) 50 ml Q30M PRN IV Hypoglycemia 12/12/19 22:15 03/11/20 22:14 Diltiazem HCl (Cardizem Tab) 90 mg Q6HR NG 12/20/19 12:00 01/13/20 11:59 12/21/19 12:04 Iron Sucrose 100 mg/Sodium Chloride 60 ml @ 240 mls/hr BEDTIME IV 12/19/19 21:00 12/23/19 21:14 12/20/19 21:40 Linezolid 300 ml @ 300 mls/hr Q12HR IVPB 12/19/19 21:00 12/26/19 20:59 12/21/19 08:38 Lorazepam (Ativan 2mg/ml 1ml) 1 mg Q4H PRN IM Agitation 12/20/19 21:30 12/27/19 21:29 12/21/19 13:51 Magnesium Hydroxide (Mom) 30 ml HSPRN PRN NG Constipation 12/20/19 08:15 01/11/20 22:14 Meropenem 500 mg/ Sodium Chloride 55 ml @ 110 mls/hr Q12H IVPB 12/19/19 16:00 12/24/19 15:59 12/21/19 03:12 Metoprolol Tartrate (Lopressor) 50 mg Q12HR NG 12/20/19 09:00 03/18/20 20:59 12/21/19 08:38 Micafungin Sodium 100 mg/Sodium Chloride 110 ml @ 110 mls/hr Q24H IVPB 12/21/19 09:00 12/28/19 08:59 12/21/19 10:08 Nitroglycerin (Ntg) 0.4 mg Q5M PRN SL Prn Chest Pain 12/12/19 22:15 01/11/20 22:14 Ondansetron HCl (Zofran) 4 mg Q6H PRN IVP Nausea & Vomiting 12/12/19 22:15 01/11/20 22:14 12/13/19 02:56 Pantoprazole (Protonix) 40 mg EVERY 12 HOURS IVP 12/19/19 21:00 01/18/20 20:59 12/21/19 08:37 Polyethylene Glycol (Miralax) 17 gm BEDTIME NG 12/20/19 21:00 01/18/20 20:59 Risperidone (RisperDAL) 2 mg BEDTIME NG 12/21/19 21:00 02/04/20 20:59 Sodium Chloride 1,000 ml @ 150 mls/hr Q6H40M IV 12/18/19 22:00 01/17/20 21:59 12/21/19 02:46 Assessment/Plan Problem List: (1) Urinary tract infection ICD Codes: N39.0 - Urinary tract infection, site not specified SNOMED: 81647770 (2) CHF exacerbation ICD Codes: I50.9 - Heart failure, unspecified SNOMED: 294056247, 00060183782188 (3) History of schizophrenia ICD Codes: Z86.59 - Personal history of other mental and behavioral disorders SNOMED: 204967871, 84390949654106 (4) Atrial fibrillation with RVR ICD Codes: I48.91 - Unspecified atrial fibrillation SNOMED: 897810998817165 (5) Schizophrenia ICD Codes: F20.9 - Schizophrenia, unspecified SNOMED: 12127327 (6) GERD (gastroesophageal reflux disease) ICD Codes: K21.9 - Gastro-esophageal reflux disease without esophagitis SNOMED: 587920925 (7) Smoker ICD Codes: F17.200 - Nicotine dependence, unspecified, uncomplicated SNOMED: 04023961 (8) Atrial fibrillation with rapid ventricular response ICD Codes: I48.91 - Unspecified atrial fibrillation SNOMED: 325550971892988 (9) Lymphadema (10) COPD (chronic obstructive pulmonary disease) ICD Codes: J44.9 - Chronic obstructive pulmonary disease, unspecified SNOMED: 06582168 (11) CKD (chronic kidney disease) stage 3, GFR 30-59 ml/min ICD Codes: N18.3 - Chronic kidney disease, stage 3 (moderate) SNOMED: 583947095 (12) NATALIE (acute kidney injury) ICD Codes: N17.9 - Acute kidney failure, unspecified SNOMED: 0673244, 19854494 (13) Dehydration ICD Codes: E86.0 - Dehydration SNOMED: 14709399 (14) Dysphagia ICD Codes: R13.10 - Dysphagia, unspecified SNOMED: 73761595, 029686163 (15) UTI (urinary tract infection) ICD Codes: N39.0 - Urinary tract infection, site not specified SNOMED: 12889001 (16) UGI bleed ICD Codes: K92.2 - Gastrointestinal hemorrhage, unspecified SNOMED: 66742030 (17) ESBL (extended spectrum beta-lactamase) producing bacteria infection ICD Codes: A49.9 - Bacterial infection, unspecified; Z16.12 - Extended spectrum beta lactamase (ESBL) resistance SNOMED: 887416185 (18) Constipation (19) Lactic acidosis ICD Codes: E87.2 - Acidosis SNOMED: 38834142 (20) Tinea cruris (21) Onychomycosis ICD Codes: B35.1 - Tinea unguium SNOMED: 776078796 (22) Emesis ICD Codes: R11.10 - Vomiting, unspecified SNOMED: 537877905 (23) Essential hypertension ICD Codes: I10 - Essential (primary) hypertension SNOMED: 05592661 (24) Anemia ICD Codes: D64.9 - Anemia, unspecified SNOMED: 368412861 (25) Cough ICD Codes: R05 - Cough SNOMED: 55986327 (26) Depression ICD Codes: F32.9 - Major depressive disorder, single episode, unspecified SNOMED: 86119446 (27) Depression ICD Codes: F32.9 - Major depressive disorder, single episode, unspecified SNOMED: 29890732 (28) Edema ICD Codes: R60.9 - Edema, unspecified SNOMED: 556088659, 769071507 (29) Rash ICD Codes: R21 - Rash and other nonspecific skin eruption SNOMED: 735727565 (30) Opiate dependence (31) Opiate dependence (32) Opiate dependence ICD Codes: F11.20 - Opioid dependence, uncomplicated SNOMED: 01111703 (33) Opiate dependence ICD Codes: F11.20 - Opioid dependence, uncomplicated SNOMED: 10984439 (34) Pyelonephritis ICD Codes: N12 - Tubulo-interstitial nephritis, not specified as acute or chronic SNOMED: 67917048 (35) Sepsis ICD Codes: A41.9 - Sepsis, unspecified organism SNOMED: 06353447 (36) UTI (urinary tract infection) ICD Codes: N39.0 - Urinary tract infection, site not specified SNOMED: 99583039 (37) Nausea and vomiting ICD Codes: R11.2 - Nausea with vomiting, unspecified SNOMED: 33755522 (38) Abdominal pain Assessment & Plan: [age]-year-old female obese white abdominal pain deep tissue injury identified limited mobility on HD. KUB noted tube in place continue meds feeds Does not seem obstructed We will monitor FINDINGS: Lower thorax: Obscuration of the left costophrenic angle suggestive of pleural effusion. Intraperitoneal space: No free air. Gastrointestinal tract: Unremarkable. No dilation. Bones/joints: Unremarkable. Tubes, lines and devices: The nasogastric tube has the tip at the mid inferior aspect of the gastric body. Other findings: Nonspecific gas pattern. ICD Codes: R10.9 - Abdominal pain SNOMED: 90811332 (39) Chest pain ICD Codes: R07.9 - Chest pain, unspecified SNOMED: 43626600 (40) Chest pain ICD Codes: R07.9 - Chest pain, unspecified SNOMED: 26769272 (41) Nausea ICD Codes: R11.0 - Nausea SNOMED: 459980616 (42) Obesity ICD Codes: E66.9 - Obesity, unspecified SNOMED: 501014239 (43) Chronic ulcer of leg ICD Codes: L97.909 - Non-prs chronic ulc unsp prt of unsp low leg w unsp severity SNOMED: 57942079 (44) Chronic ulcer of leg ICD Codes: L97.909 - Non-prs chronic ulc unsp prt of unsp low leg w unsp severity SNOMED: 49990215 (45) Chronic ulcer of leg ICD Codes: L97.909 - Non-prs chronic ulc unsp prt of unsp low leg w unsp severity SNOMED: 13151706 (46) ACS (acute coronary syndrome) ICD Codes: I24.9 - Acute ischemic heart disease, unspecified SNOMED: 980491115 (47) Acute chest pain ICD Codes: R07.9 - Chest pain, unspecified SNOMED: 793853533 (48) Encounter for dressing change or suture removal SNOMED: 005979882 (49) Left leg cellulitis ICD Codes: L03.116 - Cellulitis of left lower limb SNOMED: 132043876 (50) Acute encephalopathy ICD Codes: G93.40 - Encephalopathy, unspecified SNOMED: 2855840 (51) Encounter for wound re-check ICD Codes: Z51.89 - Encounter for other specified aftercare SNOMED: 759139353 (52) Intractable nausea and vomiting ICD Codes: R11.2 - Nausea with vomiting, unspecified SNOMED: 967838545 (53) Infection due to ESBL-producing Escherichia coli ICD Codes: A49.8 - Other bacterial infections of unspecified site; Z16.12 - Extended spectrum beta lactamase (ESBL) resistance SNOMED: 381362457 (54) Chronic venous stasis ICD Codes: I87.8 - Other specified disorders of veins SNOMED: 33511986 (55) Change of dressing (56) Change of dressing (57) Change of dressing (58) Change of dressing (59) Change of dressing (60) Change of dressing (61) Change of dressing (62) Change of dressing (63) ESBL urine (64) Lymphadema (65) Lymphedema (66) Lymphedema (67) Lymphedema (68) Lymphedema (69) Lymphedema (70) Lymphedema (71) Lymphedema (72) Lymphedema (73) Open wound of foot (74) Open wound of foot (75) cellulitis (76) chronic lymphedema (77) chronic lymphedema (78) chronic lymphedema (79) hypertension uncontrolled (80) hypertension uncontrolled (81) Intertrigo ICD Codes: L30.4 - Erythema intertrigo SNOMED: 61549667, 97081293, 79494333 (82) Sciatica ICD Codes: M54.30 - Sciatica, unspecified side SNOMED: 77966723 (83) Cellulitis ICD Codes: L03.90 - Cellulitis, unspecified SNOMED: 867512267, 79518580, 87893629 (84) Schizophrenia ICD Codes: F20.9 - Schizophrenia, unspecified SNOMED: 73630452 (85) Chronic bronchitis ICD Codes: J42 - Unspecified chronic bronchitis SNOMED: 39348643, 72479895, 20800673 (86) HTN (hypertension) ICD Codes: I10 - Essential (primary) hypertension SNOMED: 10096400 (87) Venous stasis ulcers ICD Codes: I83.009 - Varicose veins of unspecified lower extremity with ulcer of unspecified site; L97.909 - Non-pressure chronic ulcer of unspecified part of unspecified lower leg with unspecified severity SNOMED: 507853417, 24065035, 29969212 (88) Medication refill ICD Codes: Z76.0 - Encounter for issue of repeat prescription SNOMED: 633171623, 714907603, 875694211 (89) Chest pain, atypical ICD Codes: R07.89 - Other chest pain SNOMED: 289286701 (90) BMI 45.0-49.9, adult ICD Codes: Z68.42 - Body mass index (BMI) 45.0-49.9, adult SNOMED: 231374915, 357751380, 34043868 (91) Lymphedema of both lower extremities ICD Codes: I89.0 - Lymphedema, not elsewhere classified SNOMED: 16063816860612742 (92) hypertension uncontrolled (93) hypertension uncontrolled (94) hypertension uncontrolled (95) tenia corpus (96) Deep tissue injury Assessment & Plan: Morbidly obese pt whom presented on admission with Pressure injuries, Edemae bilat lower extremities eschar to dorsal aspects of metatarsals. Pt is very demanding of staff and can be resistive to repositioning. DTPI noted to L Sacrum(L)5.5cm x (W)2.5cm. Base of Pressure Injury is Maroon and indurated with surrounding non-blanchable erythema DTPI R Sacrum(L)5.5cm x (W)2.3cm. Base of Pressure Injury is maroon with purpuric center that is fluctuant. Pt complained of tenderness when minimally palpated. Bilat lower extremities are edematous . Dry eschar noted to nail matrix and tip of L 1st metatarsal, Dorsal L 2nd metatarsal, R 2nd and R 4th metatarsals. Both heels are boggy with non-Blanchable erythema. Tx.Plan: Apply Moisture Barrier Paste to Sacrum R and L gluteal cheeks. Cover with Optifoam drsgs. Change every 3 days and prn. Apply Betadine to dry eschar metatarsals both feet Daily. Apply Cavilon Skin Barrier to both heels. Cover each heel with Optifoam drsgs. Change every 7days and prn. Reposition at least every 2hours or as tolerated. Off-load heels with pillow. ICD Codes: T14.8XXA - Other injury of unspecified body region, initial encounter SNOMED: 812062231 CallumkyraJuan Manuel Dec 21, 2019 14:29
--- NOTE | 2019-12-21 15:23 | Diagnostic Imaging Report ---
Indication: Shortness of breath Technique: One view of the chest Comparison: 12/19/2019 Findings: The heart is enlarged. Bilateral extensive infiltrates are again demonstrated, stable to slightly worse allowing for differences in exposure technique. There is suggestion of increasing pleural fluid on the left. Nasogastric tube is again demonstrated. Impression: Stable to worsened bilateral extensive infiltrates, since exam of 2 days prior Increasing left pleural effusion
--- NOTE | 2019-12-21 15:43 | Infectious Diseases Prog Note ---
Assessment/Plan Assessment/Plan ASSESSMENT AND PLAN: 1. esbl e.coli uti/pyelonephritis, ? aspiration pna/hcap, sepsis, leukocytosis, fevers mrsa and vre colonization, NATALIE, + risk for mrsa pna with colonization Fungemia - + yeast in blood - zyvox and meropenem - day # 3 - micafungin started for fungemia - await identification of yeast - f/u on cultures, labs and chest x-ray 2. Chronic kidney failure, acute renal failure. 3. COPD. 4. Pulmonary followup. 5. Renal followup. 6. History of falls. 7. Atrial fibrillation. Cardiology followup. 8. Obesity. 9. Gait disorder. 10. Schizophrenia. 11. Homeless. 12. Allergic to erythromycin, haloperidol, and vancomycin. 13. Social history is negative. 14. Family history is noncontributory. 15. MAR is noted. 16. Case discussed with RN. 17. Continue treatment per Dr. Dumont and consultants. Subjective Constitutional: Reports: fever - fever curve bett, fatigue HEENT: Reports: congestion Respiratory: Reports: shortness of breath Cardiovascular: Denies: chest pain Gastrointestinal/Abdominal: Denies: nausea, vomiting, diarrhea Genitourinary: Reports: other - + trivedi Neurologic: Reports: weakness, confusion, other - opens eyes Psychiatric: Reports: other - NA Skin: Denies: rash Hematologic: Denies: bleeding Musculoskeletal: Reports: other - NA Allergies: Coded Allergies: ERYTHROMYCIN BASE (Verified Allergy, Severe, 12/12/19) HALOPERIDOL (Verified Allergy, Unknown, 12/12/19) VANCOMYCIN (Unverified Adverse Reaction, Intermediate, Shortness of Breath , 12/12/19) Objective Last 24 Hour Vital Signs Date Time Temp Pulse Resp B/P (MAP) Pulse Ox O2 Delivery O2 Flow Rate FiO2 12/21/19 14:21 88 21 125/99 100 12/21/19 14:03 95 Venturi Mask 12.0 50 12/21/19 13:51 103 24 149/74 96 12/21/19 12:35 97.7 12/21/19 12:04 91 150/61 12/21/19 12:00 104 12/21/19 12:00 97.9 20 149/74 (99) 98 12/21/19 08:38 91 150/61 12/21/19 08:00 97.7 91 19 150/61 (90) 96 12/21/19 08:00 Venturi Mask 12.0 12/21/19 08:00 100 12/21/19 05:38 88 153/72 12/21/19 05:34 88 153/72 (99) 12/21/19 04:00 97.7 97 20 160/75 (103) 95 12/21/19 04:00 92 12/21/19 02:47 101 20 145/74 93 12/21/19 00:00 99.3 113 20 175/86 (115) 95 12/21/19 00:00 114 12/20/19 23:49 101 175/86 12/20/19 23:49 101 175/86 12/20/19 22:20 100 21 152/85 97 12/20/19 21:00 Venturi Mask 12.0 12/20/19 20:00 106 12/20/19 20:00 99.1 100 21 159/69 (99) 95 12/20/19 19:02 97 Nasal Cannula 4.0 36 12/20/19 17:33 93 122/60 12/20/19 16:00 98.1 80 19 122/60 (80) 91 12/20/19 16:00 93 Height (Feet): 5 Height (Inches): 6.00 Weight (Pounds): 298 General Appearance: other - on bm, some sob HEENT: normocephalic, atraumatic, anicteric Respiratory/Chest: crackles/rales, rhonchi - bilaterally Cardiovascular: normal rate, regular rhythm, no gallop/murmur Abdomen: normal bowel sounds, soft, non tender, no organomegaly, non distended Genitourinary: other - + trivedi - urine cloudy Extremities: no cyanosis Skin: no rash 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 There is bilateral interstitial and airspace disease is again demonstrated, probably unchanged allowing for differences in degree of inspiration. Impression: Unchanged, over one day, findings as above. Chest x-ray - 12/21/19 - Procedure: XRAY Chest 1v Indication: Shortness of breath Technique: One view of the chest Comparison: 12/19/2019 Findings: The heart is enlarged. Bilateral extensive infiltrates are again demonstrated, stable to slightly worse allowing for differences in exposure technique. There is suggestion of increasing pleural fluid on the left. Nasogastric tube is again demonstrated. Impression: Stable to worsened bilateral extensive infiltrates, since exam of 2 days prior Increasing left pleural effusion Microbiology Date/Time Source Procedure Growth Status 12/18/19 23:20 Blood Blood Culture - Preliminary NO GROWTH AFTER 48 HOURS Resulted 12/12/19 21:00 Nasal Nares MRSA Culture - Final Staphylococcus Aureus - Mrsa Complete 12/17/19 20:45 Indwelling Cath Urine Culture - Final Enterococcus Faecium - Vre Complete 12/12/19 21:00 Rectum - Final NO CARBAPENEM-RESISTANT ENTEROBACTERI... Complete Microbiology Date/Time Source Procedure Growth Status 12/18/19 23:20 Blood Blood Culture - Preliminary NO GROWTH AFTER 48 HOURS Resulted 12/18/19 23:15 Blood Blood Culture - Preliminary NO GROWTH AFTER 48 HOURS Resulted Laboratory Tests Test 12/20/19 20:08 12/21/19 07:50 POC Whole Blood Glucose Pending White Blood Count 7.0 K/UL (4.8-10.8) Red Blood Count 2.64 M/UL (4.20-5.40) L Hemoglobin 7.2 G/DL (12.0-16.0) L Hematocrit 23.6 % (37.0-47.0) L Mean Corpuscular Volume 89 FL (80-99) Mean Corpuscular Hemoglobin 27.2 PG (27.0-31.0) Mean Corpuscular Hemoglobin Concent 30.5 G/DL (32.0-36.0) L Red Cell Distribution Width 16.9 % (11.6-14.8) H Platelet Count 155 K/UL (150-450) Mean Platelet Volume 7.5 FL (6.5-10.1) Neutrophils (%) (Auto) % (45.0-75.0) Lymphocytes (%) (Auto) % (20.0-45.0) Monocytes (%) (Auto) % (1.0-10.0) Eosinophils (%) (Auto) % (0.0-3.0) Basophils (%) (Auto) % (0.0-2.0) Differential Total Cells Counted 100 Neutrophils % (Manual) 84 % (45-75) H Lymphocytes % (Manual) 8 % (20-45) L Monocytes % (Manual) 8 % (1-10) Eosinophils % (Manual) 0 % (0-3) Basophils % (Manual) 0 % (0-2) Band Neutrophils 0 % (0-8) Platelet Estimate Adequate Platelet Morphology Normal Hypochromasia 3+ Anisocytosis 1+ Sodium Level 151 MMOL/L (136-145) H Potassium Level 4.9 MMOL/L (3.5-5.1) Chloride Level 114 MMOL/L (98-107) H Carbon Dioxide Level 32 MMOL/L (21-32) Anion Gap 5 mmol/L (5-15) Blood Urea Nitrogen 70 mg/dL (7-18) H Creatinine 2.0 MG/DL (0.55-1.30) H Estimat Glomerular Filtration Rate 24.9 mL/min (>60) Glucose Level 156 MG/DL (74-106) H Calcium Level 9.5 MG/DL (8.5-10.1) Total Bilirubin 1.0 MG/DL (0.2-1.0) Aspartate Amino Transf (AST/SGOT) 44 U/L (15-37) H Alanine Aminotransferase (ALT/SGPT) 35 U/L (12-78) Alkaline Phosphatase 87 U/L (46-116) Total Creatine Kinase 253 U/L (26-308) Total Protein 7.4 G/DL (6.4-8.2) Albumin 2.0 G/DL (3.4-5.0) L Globulin 5.4 g/dL Albumin/Globulin Ratio 0.4 (1.0-2.7) L Lipase 221 U/L (73-393) Current Medications Medications (Trade) Dose Ordered Sig/Shiraz Route PRN Reason Start Time Stop Time Status Last Admin Dose Admin Acetaminophen (Tylenol) 650 mg Q4H PRN NG Temp >100.5 12/20/19 08:00 01/11/20 22:14 12/20/19 12:10 Acetaminophen (Tylenol) 650 mg Q4H PRN NG Mild Pain (Pain Scale 1-3) 12/20/19 08:00 01/11/20 22:14 12/21/19 12:05 Bacitracin (Bacitracin 15gm tube) 1 applic BID TOPIC 12/18/19 18:00 03/12/20 08:59 12/21/19 08:39 Clotrimazole (Lotrimin) 1 applic TWICE A DAY TOPIC 12/18/19 18:00 03/12/20 08:59 12/21/19 08:39 Dextrose (Dextrose 50%) 25 ml Q30M PRN IV Hypoglycemia 12/12/19 22:15 03/11/20 22:14 Dextrose (Dextrose 50%) 50 ml Q30M PRN IV Hypoglycemia 12/12/19 22:15 03/11/20 22:14 Diltiazem HCl (Cardizem Tab) 90 mg Q6HR NG 12/20/19 12:00 01/13/20 11:59 12/21/19 12:04 Iron Sucrose 100 mg/Sodium Chloride 60 ml @ 240 mls/hr BEDTIME IV 12/19/19 21:00 12/23/19 21:14 12/20/19 21:40 Linezolid 300 ml @ 300 mls/hr Q12HR IVPB 12/19/19 21:00 12/26/19 20:59 12/21/19 08:38 Lorazepam (Ativan 2mg/ml 1ml) 1 mg Q4H PRN IM Agitation 12/20/19 21:30 12/27/19 21:29 12/21/19 13:51 Magnesium Hydroxide (Mom) 30 ml HSPRN PRN NG Constipation 12/20/19 08:15 01/11/20 22:14 Meropenem 500 mg/ Sodium Chloride 55 ml @ 110 mls/hr Q12H IVPB 12/19/19 16:00 12/24/19 15:59 12/21/19 03:12 Metoprolol Tartrate (Lopressor) 50 mg Q12HR NG 12/20/19 09:00 03/18/20 20:59 12/21/19 08:38 Micafungin Sodium 100 mg/Sodium Chloride 110 ml @ 110 mls/hr Q24H IVPB 12/21/19 09:00 12/28/19 08:59 12/21/19 10:08 Nitroglycerin (Ntg) 0.4 mg Q5M PRN SL Prn Chest Pain 12/12/19 22:15 01/11/20 22:14 Ondansetron HCl (Zofran) 4 mg Q6H PRN IVP Nausea & Vomiting 12/12/19 22:15 01/11/20 22:14 12/13/19 02:56 Pantoprazole (Protonix) 40 mg EVERY 12 HOURS IVP 12/19/19 21:00 01/18/20 20:59 12/21/19 08:37 Polyethylene Glycol (Miralax) 17 gm BEDTIME NG 12/20/19 21:00 01/18/20 20:59 Risperidone (RisperDAL) 2 mg BEDTIME NG 12/21/19 21:00 02/04/20 20:59 Sodium Chloride 1,000 ml @ 150 mls/hr Q6H40M IV 12/18/19 22:00 01/17/20 21:59 12/21/19 02:46 Aleisha Coronel MD Dec 21, 2019 15:43
--- NOTE | 2019-12-21 18:30 | NUR ---
NURSE NOTES: Found patient with NGT completely out of nare. Patient with expiratory wheezing. SPO2 >96%, RR 20-24 bpm. No cyanosis. MD ordered breathing treatment. RT paged by NOEL Gudino. Attempted to reinsert NGT without success. Will endorse to next shift.
[2019-12-21] MEDS ORDERED: Albuterol/Ipratropium 3ml neb HHN PRN (18:45)
--- NOTE | 2019-12-21 19:37 | NUR ---
NURSE HAND-OFF REPORT: Important Events on Shift: N/A Patient Status:Patient AAO x0, opens eyes on command, tracks and follows. Diet: Tube feeding Pending Orders: NGT insertion Pending Results/Labs:N/A Pending MD notification:N/A Latest Vital Signs: Temperature 98.6 , Pulse 88 , B/P 175 /74 , Respiratory Rate 18 , O2 SAT 97 , Venturi Mask, O2 Flow Rate 12.0 . Vital Sign Comment: N/A EKG Rhythm: Atrial Fibrillation Rhythm change?: N Notified?: Elizabeth -MD Gaviota UNDERWOOD Response: Latest Abreu Fall Score: 95 Fall Risk: High Risk Safety Measures: Call light Within Reach, Bed Alarm Zone 2, Side Rails Side Rails x3, Bed position Low and Locked. Fall Precautions: Yellow Socks Yellow Gown Door Sign Patient Fall Education Report given to NOEL Muñoz.
--- NOTE | 2019-12-21 19:50 | NUR ---
NURSE NOTES: Received report from NOEL Anguiano. Pt awake, alert, and yelling "OW" repeatedly. BLE restraints on. NG tube was pulled out prior to pm shift. R. Knee still swollen and leaking sanguinous fluid. IV site intact but not flushable. Pt satting at 90% on venturi mask. Bed in lowest position. Call light within reach. Will continue to monitor.
[2019-12-21] MEDS: Iron Sucrose 100 MG in NS 55 ML IV SCH (21:40)
--- NOTE | 2019-12-21 22:51 | Psych Consult Progress Note ---
Psychiatry Progress Note Psychiatry Progress Note Subjective pt was calmer Medications Current Medications Medications (Trade) Dose Ordered Sig/Shiraz Route PRN Reason Start Time Stop Time Status Last Admin Dose Admin Acetaminophen (Tylenol) 650 mg Q4H PRN NG Temp >100.5 12/20/19 08:00 01/11/20 22:14 12/20/19 12:10 Acetaminophen (Tylenol) 650 mg Q4H PRN NG Mild Pain (Pain Scale 1-3) 12/20/19 08:00 01/11/20 22:14 12/21/19 12:05 Albuterol/ Ipratropium (Albuterol/ Ipratropium) 3 ml Q4H PRN HHN Shortness of Breath 12/21/19 18:45 12/26/19 18:44 12/21/19 20:06 Bacitracin (Bacitracin 15gm tube) 1 applic BID TOPIC 12/18/19 18:00 03/12/20 08:59 12/21/19 17:44 Clotrimazole (Lotrimin) 1 applic TWICE A DAY TOPIC 12/18/19 18:00 03/12/20 08:59 12/21/19 17:44 Dextrose (Dextrose 50%) 25 ml Q30M PRN IV Hypoglycemia 12/12/19 22:15 03/11/20 22:14 Dextrose (Dextrose 50%) 50 ml Q30M PRN IV Hypoglycemia 12/12/19 22:15 03/11/20 22:14 Diltiazem HCl (Cardizem Tab) 90 mg Q6HR NG 12/20/19 12:00 01/13/20 11:59 12/21/19 17:44 Iron Sucrose 100 mg/Sodium Chloride 60 ml @ 240 mls/hr BEDTIME IV 12/19/19 21:00 12/23/19 21:14 12/21/19 21:40 Linezolid 300 ml @ 300 mls/hr Q12HR IVPB 12/19/19 21:00 12/26/19 20:59 12/21/19 21:40 Lorazepam (Ativan 2mg/ml 1ml) 1 mg Q4H PRN IM Agitation 12/20/19 21:30 12/27/19 21:29 12/21/19 21:53 Magnesium Hydroxide (Mom) 30 ml HSPRN PRN NG Constipation 12/20/19 08:15 01/11/20 22:14 Meropenem 500 mg/ Sodium Chloride 55 ml @ 110 mls/hr Q12H IVPB 12/19/19 16:00 12/24/19 15:59 12/21/19 17:10 Metoprolol Tartrate (Lopressor) 50 mg Q12HR NG 12/20/19 09:00 03/18/20 20:59 12/21/19 08:38 Micafungin Sodium 100 mg/Sodium Chloride 110 ml @ 110 mls/hr Q24H IVPB 12/21/19 09:00 12/28/19 08:59 12/21/19 10:08 Nitroglycerin (Ntg) 0.4 mg Q5M PRN SL Prn Chest Pain 12/12/19 22:15 01/11/20 22:14 Ondansetron HCl (Zofran) 4 mg Q6H PRN IVP Nausea & Vomiting 12/12/19 22:15 01/11/20 22:14 12/13/19 02:56 Pantoprazole (Protonix) 40 mg EVERY 12 HOURS IVP 12/19/19 21:00 01/18/20 20:59 12/21/19 21:40 Polyethylene Glycol (Miralax) 17 gm BEDTIME NG 12/20/19 21:00 01/18/20 20:59 Risperidone (RisperDAL) 2 mg BEDTIME NG 12/21/19 21:00 02/04/20 20:59 Sodium Chloride 1,000 ml @ 150 mls/hr Q6H40M IV 12/18/19 22:00 01/17/20 21:59 12/21/19 02:46 Neurological/Psychiatric: Reports: anxiety, depressed, emotional problems Allergies: Coded Allergies: ERYTHROMYCIN BASE (Verified Allergy, Severe, 12/12/19) HALOPERIDOL (Verified Allergy, Unknown, 12/12/19) VANCOMYCIN (Unverified Adverse Reaction, Intermediate, Shortness of Breath , 12/12/19) Objective Data Height (Feet): 5 Height (Inches): 6.00 Weight (Pounds): 298 General Appearance: morbidly obese Additional Comments: confused. Mood is anxious. Affect is flat. Thought process, there is a paucity of thought content. Thought content, no suicidal or homicidal ideation. Cognition is impaired. Insight and judgment is impaired. Assessment/Plan [place] I: haldol im prn morphine low dose 1mg q 6 prn Status: stable Status Narrative haldol im prn morphine low dose 1mg q 6 prn Assessment/Plan: haldol im prn morphine low dose 1mg q 6 prn Harris Ballesteros MD Dec 21, 2019 22:51
--- NOTE | 2019-12-21 23:03 | NUR ---
NURSE NOTES: Inserted NG tube in R. Nare at 65 vaughn. Ordered stat KUB. Awaiting confirmed placement before meds
[2019-12-22] VITALS (14 sets, daily range): BP systolic 109–182; BP diastolic 50–101
--- NOTE | 2019-12-22 00:05 | Diagnostic Imaging Report ---
INDICATION: Nasogastric tube COMPARISON: 12/20/2019 Findings/impression: Single frontal view of the abdomen demonstrates tip of the enteric tube and distal side-port projecting over the stomach. Gas is identified within the nondistended large bowel. There is a paucity of small bowel gas seen. Partially visualized left pleural effusion. No other significant interval change.
[2019-12-22] MEDS: Miralax 17gm pkt NG SCH ×2 (00:26→20:15)
[2019-12-22] MEDS: dilTIAZem HCl 90mg tab NG SCH ×5 (00:26→23:59)
[2019-12-22] MEDS: Metoprolol Tartrate 50mg tab NG SCH ×3 (00:26→20:14)
[2019-12-22] MEDS: LORazepam Inj 2mg/ml 1ml IM PRN (01:57)
--- NOTE | 2019-12-22 03:11 | Cardiology Progress Note ---
Subjective DATE OF SERVICE: Dec 21, 2019 Still somnolent; unable to take most oral meds Monitor: AFIb with rapid rates improving No SOB or hypoxia at rest. Now with coffee ground material in NGTube and hematoma on right leg; anti- coagulation was stopped yesterday Venous Duplex: negative for DVT Renal fxn and free water deficit still impaired Objective Last 24 Hour Vital Signs Date Time Temp Pulse Resp B/P (MAP) Pulse Ox O2 Delivery O2 Flow Rate FiO2 12/22/19 01:57 108 22 161/74 97 12/22/19 00:26 108 161/74 12/22/19 00:26 108 161/74 12/22/19 00:00 113 12/22/19 00:00 98.8 109 22 182/94 (123) 97 12/21/19 22:23 91 17 161/74 97 12/21/19 21:53 91 17 161/74 97 12/21/19 21:00 Venturi Mask 12.0 12/21/19 20:34 91 17 97 Venturi Mask 12.0 55 92 19 95 12/21/19 20:06 96 Venturi Mask 12.0 50 12/21/19 20:00 98.9 22 161/74 (103) 97 12/21/19 20:00 92 12/21/19 17:44 88 175/74 12/21/19 16:00 98.6 18 175/74 (107) 97 12/21/19 16:00 92 12/21/19 14:03 95 Venturi Mask 12.0 50 12/21/19 13:51 103 24 149/74 96 12/21/19 12:35 97.7 12/21/19 12:04 91 150/61 12/21/19 12:00 104 12/21/19 12:00 97.9 20 149/74 (99) 98 12/21/19 08:38 91 150/61 12/21/19 08:00 97.7 91 19 150/61 (90) 96 12/21/19 08:00 Venturi Mask 12.0 12/21/19 08:00 100 12/21/19 05:38 88 153/72 12/21/19 05:34 88 153/72 (99) 12/21/19 04:00 97.7 97 20 160/75 (103) 95 12/21/19 04:00 92 ROS: unchanged from 12/12/19 HEENT: other - NGtube LUNGS: diminished breath sounds CARDIAC: normal S1 and S2, irregularly irregular ABDOMEN: other - obese EXTREMITIES: moderate edema - mostly non pitting, other - hematoma right leg Laboratory Tests Test 12/21/19 07:50 White Blood Count 7.0 K/UL (4.8-10.8) Red Blood Count 2.64 M/UL (4.20-5.40) L Hemoglobin 7.2 G/DL (12.0-16.0) L Hematocrit 23.6 % (37.0-47.0) L Mean Corpuscular Volume 89 FL (80-99) Mean Corpuscular Hemoglobin 27.2 PG (27.0-31.0) Mean Corpuscular Hemoglobin Concent 30.5 G/DL (32.0-36.0) L Red Cell Distribution Width 16.9 % (11.6-14.8) H Platelet Count 155 K/UL (150-450) Mean Platelet Volume 7.5 FL (6.5-10.1) Neutrophils (%) (Auto) % (45.0-75.0) Lymphocytes (%) (Auto) % (20.0-45.0) Monocytes (%) (Auto) % (1.0-10.0) Eosinophils (%) (Auto) % (0.0-3.0) Basophils (%) (Auto) % (0.0-2.0) Differential Total Cells Counted 100 Neutrophils % (Manual) 84 % (45-75) H Lymphocytes % (Manual) 8 % (20-45) L Monocytes % (Manual) 8 % (1-10) Eosinophils % (Manual) 0 % (0-3) Basophils % (Manual) 0 % (0-2) Band Neutrophils 0 % (0-8) Platelet Estimate Adequate Platelet Morphology Normal Hypochromasia 3+ Anisocytosis 1+ Sodium Level 151 MMOL/L (136-145) H Potassium Level 4.9 MMOL/L (3.5-5.1) Chloride Level 114 MMOL/L (98-107) H Carbon Dioxide Level 32 MMOL/L (21-32) Anion Gap 5 mmol/L (5-15) Blood Urea Nitrogen 70 mg/dL (7-18) H Creatinine 2.0 MG/DL (0.55-1.30) H Estimat Glomerular Filtration Rate 24.9 mL/min (>60) Glucose Level 156 MG/DL (74-106) H Calcium Level 9.5 MG/DL (8.5-10.1) Total Bilirubin 1.0 MG/DL (0.2-1.0) Aspartate Amino Transf (AST/SGOT) 44 U/L (15-37) H Alanine Aminotransferase (ALT/SGPT) 35 U/L (12-78) Alkaline Phosphatase 87 U/L (46-116) Total Creatine Kinase 253 U/L (26-308) Total Protein 7.4 G/DL (6.4-8.2) Albumin 2.0 G/DL (3.4-5.0) L Globulin 5.4 g/dL Albumin/Globulin Ratio 0.4 (1.0-2.7) L Lipase 221 U/L (73-393) Assessment/Plan Assessment/Plan AFiB with RVR CHF, ac/chr diast - compensated BLE edema UTI with sepsis obesity COPD with bronchospasm Acute renal failure - worsening Pleural effusion GI bleeding Antimicrobials Titrate rate-control meds - hold digitalis for elevated levels. Maintain diltiazem and metoprolol. DC apixaban - hold anticoagulation due to GI bleeding. Hypotonic IVF until po intake improves and free water deficit corrected. Continued electronic device monitor Thorocentesis under consideration. Jerome Meek MD Dec 22, 2019 03:11
[2019-12-22] MEDS: Meropenem 500 MG in NS 55 ML IVPB SCH ×2 (04:00→15:17)
--- NOTE | 2019-12-22 07:05 | NUR ---
NURSE NOTES: Received report from Wanda/NOEL. Patient in bed in semi-fowlers position. On soft bilateral wrist restrains, will assess Q2hr. Patient on Venturi mask 12L. Ng tube running nepro 1.8 at 25cc/hr. Lockett catheter draining to gravity. IV on right UA 24G, running 1/2 NS at 150ml/hr. Bed in the lowest position and locked. Call light within reach. Side rails up X3. Will continue plan of care.
--- NOTE | 2019-12-22 07:36 | NUR ---
NURSE HAND-OFF REPORT: Important Events on Shift: New NG tube placed Patient Status: stable Diet: ngtube feeding Pending Orders: y Pending Results/Labs:y Pending MD notification:y Latest Vital Signs: Temperature 97.9 , Pulse 83 , B/P 109 /53 , Respiratory Rate 24 , O2 SAT 90 , Venturi Mask, O2 Flow Rate 12.0 . Vital Sign Comment: stable EKG Rhythm: Atrial Fibrillation Rhythm change?: N MD Notified?: Y -MD Gaviota UNDERWOOD Response: Latest Abreu Fall Score: 95 Fall Risk: High Risk Safety Measures: Call light Within Reach, Bed Alarm Zone 2, Side Rails Side Rails x3, Bed position Low and Locked. Fall Precautions: y Yellow Socks y Yellow Gown y Door Sign y Patient Fall Education y Report given to NOEL Benavides.
[2019-12-22] MEDS: Pantoprazole Inj IVP SCH ×2 (08:42→20:15)
[2019-12-22] MEDS: Bacitracin Oint 15gm Tube TOPIC SCH ×2 (08:44→18:25)
--- NOTE | 2019-12-22 10:13 | Pulmonology Progress Note ---
Luz Bowen ESTHETICIAN/OWNER 12/22/19 1013: Subjective ROS Limited/Unobtainable: Yes Constitutional: Reports: fever - fever curve bett, fatigue Gastrointestinal/Abdominal: Denies: nausea, vomiting, diarrhea Psychiatric: Reports: other - NA Skin: Denies: rash Musculoskeletal: Reports: other - NA Allergies: Coded Allergies: ERYTHROMYCIN BASE (Verified Allergy, Severe, 12/12/19) HALOPERIDOL (Verified Allergy, Unknown, 12/12/19) VANCOMYCIN (Unverified Adverse Reaction, Intermediate, Shortness of Breath , 12/12/19) Subjective on O2 via VM , usually gets VM at the [facility] and thru the night CXR with bilateral interstitial and airspace edema and some perihilar atelectasis on the left. creat trending down BNP trending down no fevers since yesterday, no leukocytosis BCX 0/7 + yeast, started on Micafungin ? source CXR 12/20 Stable to worsened bilateral extensive infiltrates, since exam of 2 days prior Objective Last 24 Hour Vital Signs Date Time Temp Pulse Resp B/P (MAP) Pulse Ox O2 Delivery O2 Flow Rate FiO2 12/22/19 08:41 90 146/70 12/22/19 04:00 97.9 94 24 109/53 (71) 90 12/22/19 04:00 83 12/22/19 02:27 108 22 161/74 97 12/22/19 01:57 108 22 161/74 97 12/22/19 00:26 108 161/74 12/22/19 00:26 108 161/74 12/22/19 00:00 113 12/22/19 00:00 98.8 109 22 182/94 (123) 97 12/21/19 21:53 91 17 161/74 97 12/21/19 21:00 Venturi Mask 12.0 12/21/19 20:34 91 17 97 Venturi Mask 12.0 55 92 19 95 12/21/19 20:06 96 Venturi Mask 12.0 50 12/21/19 20:00 98.9 22 161/74 (103) 97 12/21/19 20:00 92 12/21/19 17:44 88 175/74 12/21/19 16:00 98.6 18 175/74 (107) 97 12/21/19 16:00 92 12/21/19 14:03 95 Venturi Mask 12.0 50 12/21/19 13:51 103 24 149/74 96 12/21/19 12:35 97.7 12/21/19 12:04 91 150/61 12/21/19 12:00 104 12/21/19 12:00 97.9 20 149/74 (99) 98 Intake and Output 12/21/19 12/22/19 19:00 07:00 Intake Total 935 ml 150 ml Output Total 1000 ml 600 ml Balance -65 ml -450 ml Free Water 60 ml IV Total 600 ml Tube Feeding 275 ml 150 ml Output Urine Total 1000 ml 600 ml Objective General Appearance: morbidly obese , asleep, but easily arousable female in NAD Lines, tubes and drains: peripheral HEENT: normocephalic, atraumatic, anicteric, NGT in , O2 via VM Neck: non-tender Respiratory/Chest: chest wall non-tender, no accessory muscle use, decreased breath sounds; tachypnea in low 20th Cardiovascular/Chest: irregularly irregular - A fib , rate overall controlled now , distant heart sounds Abdomen: normal bowel sounds, non tender , obese, soft Extremities: no calf tenderness, moderate edema - +2 BLE, R knee with large hematoma, edema, Skin Exam: warm/dry, multiple tattoos Neurologic: abnormal gait - w/chair bound , asleep but easily arousable Musculoskeletal: normal muscle bulk Current Medications Medications (Trade) Dose Ordered Sig/Shiraz Route PRN Reason Start Time Stop Time Status Last Admin Dose Admin Acetaminophen (Tylenol) 650 mg Q4H PRN NG Temp >100.5 12/20/19 08:00 01/11/20 22:14 12/20/19 12:10 Acetaminophen (Tylenol) 650 mg Q4H PRN NG Mild Pain (Pain Scale 1-3) 12/20/19 08:00 01/11/20 22:14 12/21/19 12:05 Albuterol/ Ipratropium (Albuterol/ Ipratropium) 3 ml Q4H PRN HHN Shortness of Breath 12/21/19 18:45 12/26/19 18:44 12/21/19 20:06 Bacitracin (Bacitracin 15gm tube) 1 applic BID TOPIC 12/18/19 18:00 03/12/20 08:59 12/22/19 08:44 Clotrimazole (Lotrimin) 1 applic TWICE A DAY TOPIC 12/18/19 18:00 03/12/20 08:59 12/22/19 08:44 Dextrose (Dextrose 50%) 25 ml Q30M PRN IV Hypoglycemia 12/12/19 22:15 03/11/20 22:14 Dextrose (Dextrose 50%) 50 ml Q30M PRN IV Hypoglycemia 12/12/19 22:15 03/11/20 22:14 Diltiazem HCl (Cardizem Tab) 90 mg Q6HR NG 12/20/19 12:00 01/13/20 11:59 12/22/19 00:26 Iron Sucrose 100 mg/Sodium Chloride 60 ml @ 240 mls/hr BEDTIME IV 12/19/19 21:00 12/23/19 21:14 12/21/19 21:40 Linezolid 300 ml @ 300 mls/hr Q12HR IVPB 12/19/19 21:00 12/26/19 20:59 12/22/19 08:45 Lorazepam (Ativan 2mg/ml 1ml) 1 mg Q4H PRN IM Agitation 12/20/19 21:30 12/27/19 21:29 12/22/19 01:57 Magnesium Hydroxide (Mom) 30 ml HSPRN PRN NG Constipation 12/20/19 08:15 01/11/20 22:14 Meropenem 500 mg/ Sodium Chloride 55 ml @ 110 mls/hr Q12H IVPB 12/19/19 16:00 12/24/19 15:59 12/22/19 04:00 Metoprolol Tartrate (Lopressor) 50 mg Q12HR NG 12/20/19 09:00 03/18/20 20:59 12/22/19 08:41 Micafungin Sodium 100 mg/Sodium Chloride 110 ml @ 110 mls/hr Q24H IVPB 12/21/19 09:00 12/28/19 08:59 12/21/19 10:08 Nitroglycerin (Ntg) 0.4 mg Q5M PRN SL Prn Chest Pain 12/12/19 22:15 01/11/20 22:14 Ondansetron HCl (Zofran) 4 mg Q6H PRN IVP Nausea & Vomiting 12/12/19 22:15 01/11/20 22:14 12/13/19 02:56 Pantoprazole (Protonix) 40 mg EVERY 12 HOURS IVP 12/19/19 21:00 01/18/20 20:59 12/22/19 08:42 Polyethylene Glycol (Miralax) 17 gm BEDTIME NG 12/20/19 21:00 01/18/20 20:59 12/22/19 00:26 Risperidone (RisperDAL) 2 mg BEDTIME NG 12/21/19 21:00 02/04/20 20:59 12/22/19 00:26 Sodium Chloride 1,000 ml @ 150 mls/hr Q6H40M IV 12/18/19 22:00 01/17/20 21:59 12/22/19 02:02 Assessment/Plan Assessment/Plan ASSESSMENT sepsis fungemia UTI with E coli ESBL UTI VRE possible aspiration PNA COPD Bronchospasm Atrial fibrillation with rapid ventricular response Congestive heart failure Acute renal failure on CKD Severe anemia Status post ground fall Tobacco dependency Morbid obesity probably GARY Homeless R knee edema and hematoma, likely sprain /strain post fall PLAN OF CARE tele hold steroids , given acute renal failure, no wheezing, s/p loading dose of steroids in ED closely monitor resp status and oxygenation O2 titrate to keep sat above 92% pulm toilet with Duoneb now Venous Duplex BLE -NGT ABG 12/18 ok on O2 via NC pro BNP trending down gets VM over night usually, during the day transition to NC patient likely with GARY, needs OP polysomnogram if agrees CXR 12/13 with equivocal mild interstitial congestion, unchanged , cardiomegaly CXR 12/20-> Stable to worsened bilateral extensive infiltrates, since exam of 2 days prior Increasing left pleural effusion tachypneic in low 20th will get ABG HHN changed to DuoNeb 12/20 from Atrovent and Xopenex, HR stable UCX+ E coli ESBL, on meropenem as per ID leukocytosis resolved CXR 12/20 worsened BL infiltrates for the last 2 days BCX 12/16 1/2 + yeast, fup with yeast ID, ? source BCX 12/17 NGTD UCX 12/16 VRE SCX 12/20 now on meropenem , micafungin and Zyvox -as per ID recs X ray R knee given fall 12/15 , large hematoma, swelling-no fx or dislocation ice R knee and elevate CT head no acute IC pathology fall precautions prior declined Nicotine patch Hgb trending down off ASA and a/c for now rate control- per cardio recs: on BB, Cardizem and Digoxin monitor volumes pro BNP trending down ECHO with pEF no evidence of WMA GI prophylaxis renal US no hydro, BL nonobstructive stones IV hydration monitor renal parameters, lytes , creat trending down - per nephro management, avoid nephrotoxics as possible discussion on weight loss if receptive - not at this time; anxious and wants to go home pain management anxiolytic prn SW consult for placement case discussed and evaluated by supervising physician ivy mccarty for a consult! Colt Keen MD 12/22/19 1337: Subjective Allergies: Coded Allergies: ERYTHROMYCIN BASE (Verified Allergy, Severe, 12/12/19) HALOPERIDOL (Verified Allergy, Unknown, 12/12/19) VANCOMYCIN (Unverified Adverse Reaction, Intermediate, Shortness of Breath , 12/12/19) Assessment/Plan Assessment/Plan Patient seen and examined with ESTHETICIAN/OWNER. Agree with above A&P as it reflects our joint deliberations. Luz Bowen NP Dec 22, 2019 10:13 Colt Keen MD Dec 22, 2019 13:37
[2019-12-22] MEDS: Micafungin 100 MG in NS 110 ML IVPB SCH (10:16)
--- NOTE | 2019-12-22 11:51 | Surgery Progress Note ---
Surgery Progress Note Subjective Additional Comments imaging reviewed. bilateral infiltrates less responsive today pending blood gas Objective Last 24 Hour Vital Signs Date Time Temp Pulse Resp B/P (MAP) Pulse Ox O2 Delivery O2 Flow Rate FiO2 12/22/19 09:00 Venturi Mask 12.0 12/22/19 08:41 90 146/70 12/22/19 08:00 89 12/22/19 08:00 97.1 76 21 146/93 (110) 97 12/22/19 04:00 97.9 94 24 109/53 (71) 90 12/22/19 04:00 83 12/22/19 02:27 108 22 161/74 97 12/22/19 01:57 108 22 161/74 97 12/22/19 00:26 108 161/74 12/22/19 00:26 108 161/74 12/22/19 00:00 113 12/22/19 00:00 98.8 109 22 182/94 (123) 97 12/21/19 21:53 91 17 161/74 97 12/21/19 21:00 Venturi Mask 12.0 12/21/19 20:34 91 17 97 Venturi Mask 12.0 55 92 19 95 12/21/19 20:06 96 Venturi Mask 12.0 50 12/21/19 20:00 98.9 22 161/74 (103) 97 12/21/19 20:00 92 12/21/19 17:44 88 175/74 12/21/19 16:00 98.6 18 175/74 (107) 97 12/21/19 16:00 92 12/21/19 14:03 95 Venturi Mask 12.0 50 12/21/19 13:51 103 24 149/74 96 12/21/19 12:35 97.7 12/21/19 12:04 91 150/61 12/21/19 12:00 104 12/21/19 12:00 97.9 20 149/74 (99) 98 I&O Intake and Output 12/21/19 12/22/19 19:00 07:00 Intake Total 935 ml 150 ml Output Total 1000 ml 600 ml Balance -65 ml -450 ml Free Water 60 ml IV Total 600 ml Tube Feeding 275 ml 150 ml Output Urine Total 1000 ml 600 ml Dressing: saturated Cardiovascular: RSR Respiratory: decreased breath sounds Abdomen: soft, non-tender, present bowel sounds, other Extremities: no edema, no tenderness, no cyanosis Laboratory Tests Test 12/22/19 11:30 12/22/19 11:34 White Blood Count Pending Red Blood Count Pending Hemoglobin Pending Hematocrit Pending Mean Corpuscular Volume Pending Mean Corpuscular Hemoglobin Pending Mean Corpuscular Hemoglobin Concent Pending Red Cell Distribution Width Pending Platelet Count Pending Mean Platelet Volume Pending Neutrophils (%) (Auto) Pending Lymphocytes (%) (Auto) Pending Monocytes (%) (Auto) Pending Eosinophils (%) (Auto) Pending Basophils (%) (Auto) Pending Sodium Level Pending Potassium Level Pending Chloride Level Pending Carbon Dioxide Level Pending Blood Urea Nitrogen Pending Creatinine Pending Estimat Glomerular Filtration Rate Pending Glucose Level Pending Calcium Level Pending Arterial Blood pH Pending Arterial Blood Partial Pressure CO2 Pending Arterial Blood Partial Pressure O2 Pending Arterial Blood HCO3 Pending Arterial Blood Oxygen Saturation Pending Arterial Blood Base Excess Pending Eugene Test Pending Plan Problems: (1) Urinary tract infection (2) CHF exacerbation (3) History of schizophrenia (4) Atrial fibrillation with RVR (5) Schizophrenia (6) GERD (gastroesophageal reflux disease) (7) Smoker (8) Atrial fibrillation with rapid ventricular response (9) Lymphadema (10) COPD (chronic obstructive pulmonary disease) (11) CKD (chronic kidney disease) stage 3, GFR 30-59 ml/min (12) NATALIE (acute kidney injury) (13) Dehydration (14) Dysphagia (15) UTI (urinary tract infection) (16) UGI bleed (17) ESBL (extended spectrum beta-lactamase) producing bacteria infection (18) Constipation (19) Lactic acidosis (20) Tinea cruris (21) Onychomycosis (22) Emesis (23) Essential hypertension (24) Anemia (25) Cough (26) Depression (27) Depression (28) Edema (29) Rash (30) Opiate dependence (31) Opiate dependence (32) Opiate dependence (33) Opiate dependence (34) Pyelonephritis (35) Sepsis (36) UTI (urinary tract infection) (37) Nausea and vomiting (38) Abdominal pain Assessment & Plan: [age]-year-old female obese white abdominal pain deep tissue injury identified limited mobility on HD. KUB noted tube in place continue meds feeds Does not seem obstructed We will monitor FINDINGS: Lower thorax: Obscuration of the left costophrenic angle suggestive of pleural effusion. Intraperitoneal space: No free air. Gastrointestinal tract: Unremarkable. No dilation. Bones/joints: Unremarkable. Tubes, lines and devices: The nasogastric tube has the tip at the mid inferior aspect of the gastric body. Other findings: Nonspecific gas pattern. Single frontal view of the abdomen demonstrates tip of the enteric tube and distal side-port projecting over the stomach. Gas is identified within the nondistended large bowel. There is a paucity of small bowel gas seen. Partially visualized left pleural effusion. No other significant interval change. (39) Chest pain (40) Chest pain (41) Nausea (42) Obesity (43) Chronic ulcer of leg (44) Chronic ulcer of leg (45) Chronic ulcer of leg (46) ACS (acute coronary syndrome) (47) Acute chest pain (48) Encounter for dressing change or suture removal (49) Left leg cellulitis (50) Acute encephalopathy (51) Encounter for wound re-check (52) Intractable nausea and vomiting (53) Infection due to ESBL-producing Escherichia coli (54) Chronic venous stasis (55) Change of dressing (56) Change of dressing (57) Change of dressing (58) Change of dressing (59) Change of dressing (60) Change of dressing (61) Change of dressing (62) Change of dressing (63) ESBL urine (64) Lymphadema (65) Lymphedema (66) Lymphedema (67) Lymphedema (68) Lymphedema (69) Lymphedema (70) Lymphedema (71) Lymphedema (72) Lymphedema (73) Open wound of foot (74) Open wound of foot (75) cellulitis (76) chronic lymphedema (77) chronic lymphedema (78) chronic lymphedema (79) hypertension uncontrolled (80) hypertension uncontrolled (81) Intertrigo (82) Sciatica (83) Cellulitis (84) Schizophrenia (85) Chronic bronchitis (86) HTN (hypertension) (87) Venous stasis ulcers (88) Medication refill (89) Chest pain, atypical (90) BMI 45.0-49.9, adult (91) Lymphedema of both lower extremities (92) hypertension uncontrolled (93) hypertension uncontrolled (94) hypertension uncontrolled (95) tenia corpus (96) Deep tissue injury Assessment & Plan: Morbidly obese pt whom presented on admission with Pressure injuries, Edemae bilat lower extremities eschar to dorsal aspects of metatarsals. Pt is very demanding of staff and can be resistive to repositioning. DTPI noted to L Sacrum(L)5.5cm x (W)2.5cm. Base of Pressure Injury is Maroon and indurated with surrounding non-blanchable erythema DTPI R Sacrum(L)5.5cm x (W)2.3cm. Base of Pressure Injury is maroon with purpuric center that is fluctuant. Pt complained of tenderness when minimally palpated. Bilat lower extremities are edematous . Dry eschar noted to nail matrix and tip of L 1st metatarsal, Dorsal L 2nd metatarsal, R 2nd and R 4th metatarsals. Both heels are boggy with non-Blanchable erythema. blisters forming on Right lower extremity anterior tibia. not infected cellulitis / edema on b/l le stable cont abx Tx.Plan: Apply Moisture Barrier Paste to Sacrum R and L gluteal cheeks. Cover with Optifoam drsgs. Change every 3 days and prn. Apply Betadine to dry eschar metatarsals both feet Daily. Apply Cavilon Skin Barrier to both heels. Cover each heel with Optifoam drsgs. Change every 7days and prn. Reposition at least every 2hours or as tolerated. Off-load heels with pillow. Juan Manuel Buckner Dec 22, 2019 11:51
[2019-12-22 11:54] LABS: HEMATOCRIT 24.4 % (37.0-47.0); HEMOGLOBIN 7.2 G/DL (12.0-16.0); MEAN CORPUSCULAR VOLUME 91 FL (80-99); PLATELET COUNT 176 K/UL (150-450); RED BLOOD COUNT 2.67 M/UL (4.20-5.40); RED CELL DISTRIBUTION WIDTH 17.4 % (11.6-14.8); WHITE BLOOD COUNT 8.1 K/UL (4.8-10.8)
--- NOTE | 2019-12-22 11:59 | NUR ---
CASE MANAGEMENT:REVIEW SI;E COLI UTI. COPD. ASP PNA. AFIB W/ PVC UNCONTROLLED HR . BLE EDEMA. 97.9 108 24 146/93 90% 12 L VENTURI MASK FIO2 @ 55% H/H 7.2/24.4 IS;MICAFUNGIN IV Q24 DILTIAZEM NG Q6 LOPRESSOR NG Q12 PROTONIX IV Q12 IRON SUCROSE IV HS MEROPENEM IV Q12 IVF NS @ 150 ML/HR TELE STATUS DCP;FROM [facility]
[2019-12-22 12:13] LABS: CALCIUM 9.4 MG/DL (8.5-10.1); CREATININE 1.7 MG/DL (0.55-1.30); POTASSIUM 5.5 MMOL/L (3.5-5.1)
--- NOTE | 2019-12-22 12:46 | General Progress Note ---
Assessment/Plan Problem List: (1) Schizophrenia ICD Codes: F20.9 - Schizophrenia, unspecified SNOMED: 82475778 (2) GERD (gastroesophageal reflux disease) ICD Codes: K21.9 - Gastro-esophageal reflux disease without esophagitis SNOMED: 713630062 (3) Lymphadema (4) Smoker ICD Codes: F17.200 - Nicotine dependence, unspecified, uncomplicated SNOMED: 99095244 (5) Atrial fibrillation with rapid ventricular response ICD Codes: I48.91 - Unspecified atrial fibrillation SNOMED: 471913870159328 (6) CKD (chronic kidney disease) stage 3, GFR 30-59 ml/min ICD Codes: N18.3 - Chronic kidney disease, stage 3 (moderate) SNOMED: 630113663 (7) NATALIE (acute kidney injury) ICD Codes: N17.9 - Acute kidney failure, unspecified SNOMED: 7163939, 63216411 (8) COPD (chronic obstructive pulmonary disease) ICD Codes: J44.9 - Chronic obstructive pulmonary disease, unspecified SNOMED: 14607890 (9) UGI bleed ICD Codes: K92.2 - Gastrointestinal hemorrhage, unspecified SNOMED: 80442361 (10) Dysphagia ICD Codes: R13.10 - Dysphagia, unspecified SNOMED: 39073409, 783816200 (11) UTI (urinary tract infection) ICD Codes: N39.0 - Urinary tract infection, site not specified SNOMED: 38518040 (12) ESBL (extended spectrum beta-lactamase) producing bacteria infection ICD Codes: A49.9 - Bacterial infection, unspecified; Z16.12 - Extended spectrum beta lactamase (ESBL) resistance SNOMED: 847310098 (13) Dehydration ICD Codes: E86.0 - Dehydration SNOMED: 31196701 Status: stable Assessment/Plan: tele, , pulm care, PT eval, psych to see, placement, now worse natalie,prerenal place trivedi, I/O, update lab, hold diuretic , hydrate, coffee grounds in ng,+ hematoma RLE stop eliquis ancd asa, possible lovenox soon iv protonix, rx esbl and + vre uti,g+ cocci linezolid , remains high risk, psychotic and hallucinating d/w psych, ID, cardiology Subjective ROS Limited/Unobtainable: Yes Allergies: Coded Allergies: ERYTHROMYCIN BASE (Verified Allergy, Severe, 12/12/19) HALOPERIDOL (Verified Allergy, Unknown, 12/12/19) VANCOMYCIN (Unverified Adverse Reaction, Intermediate, Shortness of Breath , 12/12/19) Objective Last 24 Hour Vital Signs Date Time Temp Pulse Resp B/P (MAP) Pulse Ox O2 Delivery O2 Flow Rate FiO2 12/22/19 12:36 84 159/101 12/22/19 09:00 Venturi Mask 12.0 12/22/19 08:41 90 146/70 12/22/19 08:00 89 12/22/19 08:00 97.1 76 21 146/93 (110) 97 12/22/19 04:00 97.9 94 24 109/53 (71) 90 12/22/19 04:00 83 12/22/19 02:27 108 22 161/74 97 12/22/19 01:57 108 22 161/74 97 12/22/19 00:26 108 161/74 12/22/19 00:26 108 161/74 12/22/19 00:00 113 12/22/19 00:00 98.8 109 22 182/94 (123) 97 12/21/19 21:53 91 17 161/74 97 12/21/19 21:00 Venturi Mask 12.0 12/21/19 20:34 91 17 97 Venturi Mask 12.0 55 92 19 95 12/21/19 20:06 96 Venturi Mask 12.0 50 12/21/19 20:00 98.9 22 161/74 (103) 97 12/21/19 20:00 92 12/21/19 17:44 88 175/74 12/21/19 16:00 98.6 18 175/74 (107) 97 12/21/19 16:00 92 12/21/19 14:03 95 Venturi Mask 12.0 50 12/21/19 13:51 103 24 149/74 96 Intake and Output 12/21/19 12/22/19 19:00 07:00 Intake Total 935 ml 150 ml Output Total 1000 ml 600 ml Balance -65 ml -450 ml Free Water 60 ml IV Total 600 ml Tube Feeding 275 ml 150 ml Output Urine Total 1000 ml 600 ml Laboratory Tests 12/22/19 11:30: White Blood Count 8.1, Red Blood Count 2.67L, Hemoglobin 7.2L, Hematocrit 24.4L , Mean Corpuscular Volume 91, Mean Corpuscular Hemoglobin 27.1, Mean Corpuscular Hemoglobin Concent 29.7L, Red Cell Distribution Width 17.4H, Platelet Count 176, Mean Platelet Volume 6.7, Neutrophils (%) (Auto) , Lymphocytes (%) (Auto) , Monocytes (%) (Auto) , Eosinophils (%) (Auto) , Basophils (%) (Auto) , Neutrophils % (Manual) [Pending], Lymphocytes % (Manual) [Pending], Platelet Estimate [Pending], Platelet Morphology [Pending], Sodium Level 150H, Potassium Level 5.5H, Chloride Level 114H, Carbon Dioxide Level 32, Anion Gap 5, Blood Urea Nitrogen 62H, Creatinine 1.7H, Estimat Glomerular Filtration Rate 30.0, Glucose Level 189H, Calcium Level 9.4 12/22/19 11:34: Arterial Blood pH 7.169*L, Arterial Blood Partial Pressure CO2 83.3*H, Arterial Blood Partial Pressure O2 52.0L, Arterial Blood HCO3 29.6H, Arterial Blood Oxygen Saturation 79.6*L, Arterial Blood Base Excess 0.5, Eugene Test Positive Height (Feet): 5 Height (Inches): 6.00 Weight (Pounds): 298 General Appearance: lethargic, confused EENT: normal ENT inspection Neck: normal inspection Cardiovascular: regularly irregular Respiratory/Chest: rhonchi - bilaterally Abdomen: soft, no organomegaly Edema: mild edema Neurologic: disoriented, unresponsive Benjamin Dumont MD Dec 22, 2019 12:46
--- NOTE | 2019-12-22 12:52 | NUR ---
NURSE NOTES: Called Dr Dumont to let him know about patient's ABGs results; pH 7.169, pCO2 83.3, pO2 52.0, HCo3 29.6, O2 sat 79.6. Waiting for to call back with orders.
--- NOTE | 2019-12-22 14:00 | NUR ---
NURSE NOTES: Pt transferred from [facility], as per Dr Keen request d/t respiratory distress. Report received from NOEL Benavides. Pt observed laying in hospital bed, extremely lethargic, with minimal response to verbal or physical stimuli. T:99.2 on arrival. Pt on BiPAP 20/10, O2sat 100%. Stable/asymptomatic Afib on rail filler (HR 60's-70's). B/P: 145/74. Pt noted to have a NGT; tube feeds (Nepro 1.8 @ 25mL/hr)-currently on hold d/t BiPAP. Transferring nurse reported pt fell on 12/15- noted to have a large hematoma on her Rt Knee. Rt UA #24g PIV and Rt Wrist #22g noted- both intact and patent. Pt receiving 1/2 NS @100mL/hr. Pt received and maintained on 2 point wrist restraints for safety as pt reportedly gets agitated and attempts to pull at tubing. Bed locked and in lowest position with call light within reach. Will f/u with ABG and report results to Dr Keen. Will resume plan of care.
--- NOTE | 2019-12-22 14:37 | NUR ---
TRANSFER TO FLOOR: Patient transferred to ICU, per Dr Keen request. Report given to Olive. Belongings and medications given to receiving nurse.
[2019-12-22] MEDS ORDERED: Nitroglycerin Subl 0.4mg tab SL PRN (15:00)
[2019-12-22] MEDS ORDERED: LORazepam Inj 2mg/ml 1ml IM PRN (15:30)
--- NOTE | 2019-12-22 15:35 | NUR ---
NURSE NOTES: Pt appears to be more awake at this time. RT reported pt was screaming when BiPAP mask was taken off briefly, which is reportedly her baseline.
--- NOTE | 2019-12-22 16:00 | NUR ---
NURSE NOTES: Dr Keen made aware of ABG results. No new orders given at this time. Pt remains on BiPAP 20/10 100%, O2Sat 100% on monitor.
[2019-12-22] MEDS ORDERED: 1/2 NS 1000ml IV ONE (16:22)
--- NOTE | 2019-12-22 16:52 | General Progress Note ---
Assessment/Plan Status: stable Assessment/Plan: Assessment/Plan Problem List: (1) CKD (chronic kidney disease) stage 3, GFR 30-59 ml/min ICD Codes: N18.3 - Chronic kidney disease, stage 3 (moderate) SNOMED: 887064331 (2) COPD / Respiratory failure ICD Codes: J44.9 - Chronic obstructive pulmonary disease, unspecified SNOMED: 51979417 (3) Smoker ICD Codes: F17.200 - Nicotine dependence, unspecified, uncomplicated SNOMED: 68354765 (4) GERD (gastroesophageal reflux disease) ICD Codes: K21.9 - Gastro-esophageal reflux disease without esophagitis SNOMED: 572141065 (5) Atrial fibrillation with RVR ICD Codes: I48.91 - Unspecified atrial fibrillation SNOMED: 456955697473340 Assessment/Plan: s/p ngt placement ppi bid fu H&H monitor labs bowel regimen needs clearance for GI procedures NGTF on Lovenox Subjective Allergies: Coded Allergies: ERYTHROMYCIN BASE (Verified Allergy, Severe, 12/12/19) HALOPERIDOL (Verified Allergy, Unknown, 12/12/19) VANCOMYCIN (Unverified Adverse Reaction, Intermediate, Shortness of Breath , 12/12/19) Subjective above noted seen earlier minimally interactive on FM O2 (+) NGT Objective Last 24 Hour Vital Signs Date Time Temp Pulse Resp B/P (MAP) Pulse Ox O2 Delivery O2 Flow Rate FiO2 12/22/19 16:00 82 12/22/19 16:00 88 33 145/71 (95) 100 12/22/19 16:00 Bi-pap 12/22/19 15:35 80 31 100 100 12/22/19 15:00 67 32 147/50 (82) 100 12/22/19 14:30 71 36 128/80 (96) 100 12/22/19 13:45 78 33 100 100 12/22/19 12:36 84 159/101 12/22/19 12:00 98.1 84 21 159/101 (120) 97 12/22/19 12:00 98 12/22/19 09:00 Venturi Mask 12.0 12/22/19 08:41 90 146/70 12/22/19 08:04 95 Venturi Mask 12.0 50 12/22/19 08:00 89 12/22/19 08:00 97.1 76 21 146/93 (110) 97 12/22/19 04:00 97.9 94 24 109/53 (71) 90 12/22/19 04:00 83 12/22/19 02:27 108 22 161/74 97 12/22/19 01:57 108 22 161/74 97 12/22/19 00:26 108 161/74 12/22/19 00:26 108 161/74 12/22/19 00:00 113 12/22/19 00:00 98.8 109 22 182/94 (123) 97 12/21/19 21:53 91 17 161/74 97 12/21/19 21:00 Venturi Mask 12.0 12/21/19 20:34 91 17 97 Venturi Mask 12.0 55 92 19 95 12/21/19 20:06 96 Venturi Mask 12.0 50 12/21/19 20:00 98.9 22 161/74 (103) 97 12/21/19 20:00 92 12/21/19 17:44 88 175/74 Intake and Output 12/21/19 12/22/19 19:00 07:00 Intake Total 935 ml 150 ml Output Total 1000 ml 600 ml Balance -65 ml -450 ml Free Water 60 ml IV Total 600 ml Tube Feeding 275 ml 150 ml Output Urine Total 1000 ml 600 ml Laboratory Tests 12/22/19 11:30: White Blood Count 8.1, Red Blood Count 2.67L, Hemoglobin 7.2L, Hematocrit 24.4L , Mean Corpuscular Volume 91, Mean Corpuscular Hemoglobin 27.1, Mean Corpuscular Hemoglobin Concent 29.7L, Red Cell Distribution Width 17.4H, Platelet Count 176, Mean Platelet Volume 6.7, Neutrophils (%) (Auto) , Lymphocytes (%) (Auto) , Monocytes (%) (Auto) , Eosinophils (%) (Auto) , Basophils (%) (Auto) , Differential Total Cells Counted 100, Neutrophils % ( Manual) 73, Lymphocytes % (Manual) 15L, Monocytes % (Manual) 12H, Eosinophils % (Manual) 0, Basophils % (Manual) 0, Band Neutrophils 0, Nucleated Red Blood Cells 1, Platelet Estimate Adequate, Platelet Morphology Normal, Hypochromasia 3 +, Anisocytosis 1+, Sodium Level 150H, Potassium Level 5.5H, Chloride Level 114H , Carbon Dioxide Level 32, Anion Gap 5, Blood Urea Nitrogen 62H, Creatinine 1.7H , Estimat Glomerular Filtration Rate 30.0, Glucose Level 189H, Calcium Level 9.4 12/22/19 11:34: Arterial Blood pH 7.169*L, Arterial Blood Partial Pressure CO2 83.3*H, Arterial Blood Partial Pressure O2 52.0L, Arterial Blood HCO3 29.6H, Arterial Blood Oxygen Saturation 79.6*L, Arterial Blood Base Excess 0.5, Eugene Test Positive 12/22/19 14:53: Arterial Blood pH 7.203*L, Arterial Blood Partial Pressure CO2 74.2*H, Arterial Blood Partial Pressure O2 97.9, Arterial Blood HCO3 28.5H, Arterial Blood Oxygen Saturation 96.8, Arterial Blood Base Excess 0.1, Eugene Test Positive Height (Feet): 5 Height (Inches): 6.00 Weight (Pounds): 298 Objective Obese WW NCAT supple CTA RR abd obese (+) edema, large blistered bruise on (R) Antoine Juares MD Dec 22, 2019 16:52
--- NOTE | 2019-12-22 17:30 | NUR ---
NURSE NOTES: Wounds assessed and optifoam applied to sacrum and BL heels. Turned and repositioned with the help and assist of 4 staff members, as pt is very heavy. Linens changed; pt is clean. Wound Pictures taken and uploaded to EMR.
--- NOTE | 2019-12-22 17:52 | Diagnostic Imaging Report ---
EXAM: XR Chest, 1 View CLINICAL HISTORY: ABN CHST TECHNIQUE: Frontal view of the chest. COMPARISON: 12/21/2019 FINDINGS: Lungs: Unchanged retrocardiac atelectasis without or with consolidation. Pleural space: Similar to mildly worsened left moderate pleural effusion with extensive passive atelectasis, correlate with presentation to exclude superimposed consolidation. No pneumothorax. Heart: Unchanged cardiomegaly. Mediastinum: Unremarkable. Bones/joints: No acute abnormality Lymph nodes: Prominent right hilar structures persist, recommend further evaluation with nonemergent likely outpatient CT chest with IV contrast to evaluate for lymphadenopathy or pulmonary vascular enlargement. Tubes, lines and devices: Enteric tube with tip and proximal sideport below the gastroesophageal junction. IMPRESSION: 1. Enteric tube with tip and proximal sideport below the gastroesophageal junction. 2. Similar to mildly worsened left moderate pleural effusion with extensive passive atelectasis, correlate with presentation to exclude superimposed consolidation. 3. Prominent right hilar structures persist, recommend further evaluation with nonemergent likely outpatient CT chest with IV contrast to evaluate for lymphadenopathy or pulmonary vascular enlargement. 4. Unchanged cardiomegaly. 5. Unchanged retrocardiac atelectasis without or with consolidation.
[2019-12-22] MEDS ORDERED: Albuterol/Ipratropium 3ml neb HHN PRN (18:45)
--- NOTE | 2019-12-22 18:48 | NUR ---
NURSE NOTES: Dr Keen informed of ABG and CXRAY results. No new orders given at this time.
--- NOTE | 2019-12-22 19:00 | NUR ---
NURSE NOTES: BiPAP settings changed to 24/12, FiO2 80%, per Dr Keen.
--- NOTE | 2019-12-22 19:20 | NUR ---
NURSE HAND-OFF REPORT: Latest Vital Signs: Temperature 99.2 , Pulse 64 , B/P 133 /54 , Respiratory Rate 27 , O2 SAT 95 , Bi-pap, 24/12, FiO2 80% . Vital Sign Comment: EKG Rhythm: Atrial Fibrillation Rhythm change?: N MD Notified?: - MD Response: Latest Abreu Fall Score: 95 Fall Risk: High Risk Safety Measures: Call light Within Reach, Bed Alarm Zone 2, Side Rails Side Rails x3, Bed position Low and Locked. Fall Precautions: Yellow Socks Yellow Gown Door Sign Patient Fall Education Report given to NOEL Brand.
--- NOTE | 2019-12-22 19:21 | NUR ---
NURSE NOTES: Patient received from NOEL Schaefer. patient moves upper extremities to deep pain with unintelligible moaning noted on BIPAP changed from 20/10 to 24/12 FiO2 100%. BP 133/54 HR64 Afib on monitor. temp 99.2F axillary. right nare NGT clamped and patent. PIV right wrist #22 leaking, Right upper arm #24 running 1/2NS @ 100ml/hr asymptomatic. bilateral knee ecchymosis noted, right knee hematoma with blistering noted. Lockett catheter draining light doretha urine. bed locked lowest position, patient repositioned and oral care provided.
[2019-12-22] MEDS: Acetaminophen 650mg/20.3ml NG PRN (19:59)
[2019-12-22] MEDS: Iron Sucrose 100 MG in NS 55 ML IV SCH (20:00)
--- NOTE | 2019-12-22 22:00 | NUR ---
NURSE NOTES: patient moves upper extremities to deep pain with unintelligible moaning noted on BIPAP changed from 20/10 to 24/12 FiO2 80% etCO2 monitoring on. BP 127/58 HR81 Afib on monitor. right nare NGT clamped and patent. PIV right wrist #22 leaking, Right upper arm #24 running 1/2NS @ 100ml/hr asymptomatic. Lockett catheter draining light doretha urine. bed locked lowest position, patient repositioned and oral care provided.
[2019-12-23] VITALS (31 sets, daily range): BP systolic 104–162; BP diastolic 48–95
--- NOTE | 2019-12-23 | NUR ---
NURSE NOTES: patient moves upper extremities to deep pain with unintelligible moaning noted on BIPAP changed from 20/10 to 24/12 FiO2 80% etCO2 monitoring on. BP 138/88 HR83 Afib on monitor and afebrile. right nare NGT clamped and patent. PIV Right upper arm #24 running 1/2NS @ 100ml/hr asymptomatic. Lockett catheter draining light doretha urine. bed locked lowest position, patient repositioned and oral care provided.
--- NOTE | 2019-12-23 00:41 | NUR ---
NURSE NOTES: Paged Dr. Keen to report ABG results after BIPAP setting change. message left. awaiting call back.
--- NOTE | 2019-12-23 00:55 | NUR ---
NURSE NOTES: Dr. Keen returned page, aware of ABG results. order received read back and carried out.
--- NOTE | 2019-12-23 01:05 | Cardiology Progress Note ---
Subjective DATE OF SERVICE: Dec 22, 2019 Doing poorly - required transfer to ICU. Monitor: AFIb Persisting respiratory acidosis; placed on bipap support. Had coffee ground material in NGTube and hematoma on right leg; anti- coagulation was stopped yesterday Venous Duplex: negative for DVT Renal fxn and free water deficit still impaired Objective Last 24 Hour Vital Signs Date Time Temp Pulse Resp B/P (MAP) Pulse Ox O2 Delivery O2 Flow Rate FiO2 12/23/19 00:00 98.9 83 138/88 (105) 100 12/23/19 00:00 70 12/23/19 00:00 Bi-pap 12/22/19 23:59 84 137/60 12/22/19 23:00 82 23 134/54 (80) 98 12/22/19 22:00 81 22 127/58 (81) 100 12/22/19 21:00 76 26 122/56 (78) 100 12/22/19 20:14 89 140/69 12/22/19 20:00 76 12/22/19 20:00 Bi-pap 12/22/19 20:00 80 12/22/19 20:00 99.2 85 28 140/69 (92) 100 12/22/19 19:26 68 28 100 100 12/22/19 19:25 100 Bi-Pap 100 12/22/19 19:00 64 27 133/54 (80) 95 12/22/19 18:25 89 149/64 12/22/19 18:00 99.2 89 33 149/64 (92) 98 12/22/19 17:00 87 33 133/53 (79) 98 12/22/19 16:00 82 12/22/19 16:00 88 33 145/71 (95) 100 12/22/19 16:00 Bi-pap 12/22/19 15:35 80 31 100 100 12/22/19 15:00 67 32 147/50 (82) 100 12/22/19 14:30 71 36 128/80 (96) 100 12/22/19 13:45 78 33 100 100 12/22/19 12:36 84 159/101 12/22/19 12:00 98.1 84 21 159/101 (120) 97 12/22/19 12:00 98 12/22/19 09:00 Venturi Mask 12.0 12/22/19 08:41 90 146/70 12/22/19 08:04 95 Venturi Mask 12.0 50 12/22/19 08:00 89 12/22/19 08:00 97.1 76 21 146/93 (110) 97 12/22/19 04:00 97.9 94 24 109/53 (71) 90 12/22/19 04:00 83 12/22/19 02:27 108 22 161/74 97 12/22/19 01:57 108 22 161/74 97 ROS: unchanged from 12/12/19 HEENT: other - NGtube LUNGS: diminished breath sounds CARDIAC: normal S1 and S2, irregularly irregular ABDOMEN: other - obese EXTREMITIES: moderate edema - mostly non pitting, other - hematoma right leg Laboratory Tests Test 12/22/19 11:30 12/22/19 11:34 12/22/19 14:30 12/22/19 14:53 White Blood Count 8.1 K/UL (4.8-10.8) Red Blood Count 2.67 M/UL (4.20-5.40) L Hemoglobin 7.2 G/DL (12.0-16.0) L Hematocrit 24.4 % (37.0-47.0) L Mean Corpuscular Volume 91 FL (80-99) Mean Corpuscular Hemoglobin 27.1 PG (27.0-31.0) Mean Corpuscular Hemoglobin Concent 29.7 G/DL (32.0-36.0) L Red Cell Distribution Width 17.4 % (11.6-14.8) H Platelet Count 176 K/UL (150-450) Mean Platelet Volume 6.7 FL (6.5-10.1) Neutrophils (%) (Auto) % (45.0-75.0) Lymphocytes (%) (Auto) % (20.0-45.0) Monocytes (%) (Auto) % (1.0-10.0) Eosinophils (%) (Auto) % (0.0-3.0) Basophils (%) (Auto) % (0.0-2.0) Differential Total Cells Counted 100 Neutrophils % (Manual) 73 % (45-75) Lymphocytes % (Manual) 15 % (20-45) L Monocytes % (Manual) 12 % (1-10) H Eosinophils % (Manual) 0 % (0-3) Basophils % (Manual) 0 % (0-2) Band Neutrophils 0 % (0-8) Nucleated Red Blood Cells 1 /100 WBC Platelet Estimate Adequate Platelet Morphology Normal Hypochromasia 3+ Anisocytosis 1+ Sodium Level 150 MMOL/L (136-145) H Potassium Level 5.5 MMOL/L (3.5-5.1) H Chloride Level 114 MMOL/L (98-107) H Carbon Dioxide Level 32 MMOL/L (21-32) Anion Gap 5 mmol/L (5-15) Blood Urea Nitrogen 62 mg/dL (7-18) H Creatinine 1.7 MG/DL (0.55-1.30) H Estimat Glomerular Filtration Rate 30.0 mL/min (>60) Glucose Level 189 MG/DL (74-106) H Calcium Level 9.4 MG/DL (8.5-10.1) Arterial Blood pH 7.169 (7.350-7.450) 7.222 (7.350-7.450) 7.203 (7.350-7.450) Arterial Blood Partial Pressure CO2 83.3 mmHg (35.0-45.0) *H 64.8 mmHg (35.0-45.0) *H 74.2 mmHg (35.0-45.0) *H Arterial Blood Partial Pressure O2 52.0 mmHg (75.0-100.0) L 132.8 mmHg (75.0-100.0) H 97.9 mmHg (75.0-100.0) Arterial Blood HCO3 29.6 mmol/L (22.0-26.0) H 26.0 mmol/L (22.0-26.0) 28.5 mmol/L (22.0-26.0) H Arterial Blood Oxygen Saturation 79.6 % (95-100) *L 98.1 % (95-100) 96.8 % (95-100) Arterial Blood Base Excess 0.5 (-2-2) -1.6 (-2-2) 0.1 (-2-2) Eugene Test Positive Positive Positive Test 12/22/19 18:00 12/22/19 22:00 Arterial Blood pH 7.165 (7.350-7.450) 7.222 (7.350-7.450) Arterial Blood Partial Pressure CO2 90.7 mmHg (35.0-45.0) *H 64.8 mmHg (35.0-45.0) *H Arterial Blood Partial Pressure O2 126.4 mmHg (75.0-100.0) H 132.8 mmHg (75.0-100.0) H Arterial Blood HCO3 32.0 mmol/L (22.0-26.0) H 26.0 mmol/L (22.0-26.0) Arterial Blood Oxygen Saturation 98.3 % (95-100) 98.1 % (95-100) Arterial Blood Base Excess 2.5 (-2-2) H -1.6 (-2-2) Eugene Test Positive Positive Microbiology Date/Time Source Procedure Growth Status 12/20/19 23:30 Sputum Induced Gram Stain - Final Resulted 12/20/19 23:30 Sputum Culture - Preliminary Gram Negative Bacillus 1 Resulted Assessment/Plan Assessment/Plan CRITICAL AND GUARDED Acute respiratory failure Acute on chronic respiratory acidosis AFiB with RVR CHF, ac/chr diast - compensated BLE edema UTI with sepsis obesity COPD with bronchospasm Acute renal failure - worsening Pleural effusion GI bleeding Bipap support Monitor acid/base parameters. Antimicrobials Titrate rate-control meds - hold digitalis for elevated levels. Maintain diltiazem and metoprolol. DC apixaban - hold anticoagulation due to GI bleeding. Hypotonic IVF until po intake improves and free water deficit corrected. 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 Jerome Meek MD Dec 23, 2019 01:05
--- NOTE | 2019-12-23 02:00 | NUR ---
NURSE NOTES: patient moves upper extremities to deep pain with unintelligible moaning noted on BIPAP changed from 20/10 to 24/12 FiO2 80% etCO2 monitoring on. BP 139/61 HR80 Afib on monitor and afebrile. right nare NGT clamped and patent. PIV Right upper arm #24, right hand #22, right forearm #22 running 1/2NS @ 100ml/hr asymptomatic. Lockett catheter draining light doretha urine. bed locked lowest position, patient repositioned and oral care provided.
[2019-12-23] MEDS: Meropenem 500 MG in NS 55 ML IVPB SCH ×2 (03:09→16:45)
--- NOTE | 2019-12-23 04:00 | NUR ---
NURSE NOTES: patient moves upper extremities to light pain with unintelligible moaning noted on BIPAP 24/12 FiO2 70% etCO2 monitoring on. BP 134/72 HR92 Afib on monitor, temp 99.8F axillary. right nare NGT clamped and patent. PIV Right upper arm #24, right hand #22, right forearm #22 running 1/2NS @ 100ml/hr asymptomatic. Lockett catheter draining light doretha urine. bed locked lowest position, patient bathed, repositioned and oral care provided.
[2019-12-23] MEDS: dilTIAZem HCl 90mg tab NG SCH ×4 (05:39→23:36)
--- NOTE | 2019-12-23 06:00 | NUR ---
NURSE NOTES: patient moves upper and lower extremities to shaking with unintelligible moaning noted on BIPAP 24/12 FiO2 60% etCO2 monitoring on. BP 136/68 HR81 Afib on monitor. right nare NGT clamped and patent. PIV Right upper arm #24, right hand #22, right forearm #22 running 1/2NS @ 100ml/hr asymptomatic. Lockett catheter draining light doretha urine. bilateral knee ecchymosis noted, right knee hematoma with blistering noted. bed locked lowest position, patient repositioned and oral care provided.
--- NOTE | 2019-12-23 07:09 | NUR ---
NURSE HAND-OFF REPORT: Latest Vital Signs: Temperature 99.8 , Pulse 81 , B/P 136 /68 , Respiratory Rate 25 , O2 SAT 94 , Bi-pap, O2 Flow Rate 12.0 . Vital Sign Comment: WNL EKG Rhythm: Atrial Fibrillation Rhythm change?: N Notified?: Elizabeth Meek MD Response: Latest Abreu Fall Score: 95 Fall Risk: High Risk Safety Measures: Call light Within Reach, Bed Alarm Zone 2, Side Rails Side Rails x3, Bed position Low and Locked. Fall Precautions: Yellow Socks Yellow Gown Door Sign Patient Fall Education Report given to NOEL Daniels.
--- NOTE | 2019-12-23 07:10 | NUR ---
NURSE NOTES: Received report from NOEL Palumbo. The patient is moaning, agitated, and lethargic on the bed. The patient is opening eyes with deep pain but not able to make verbal communication due to acuity of illness at this time. 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 The patient is on Bipap 24/12 FiO2 60% with EtCO2 monitor and oxygen saturation is 96%. The patient has R NGT for medication only and not being used for feeding due to high aspiration risk and will follow up with Dr. Dumont. The patient has Lockett that is intact and patent and draining well by gravity and 30-50mL/hr UOP noted per night nurse. The patient has bilateral knee bruise, hematoma, and blister s/p fall on 12/15 @ tele floor but negative for fracture and negative for CT head based on the report. Sacral DTI noted and dressing intact. The patient has bilateral soft wrist restraints on per order, and skin and circulation is intact. The patient has TIAM 24G,R FA 22G, and R hand 22G PIV that is intact and patent and 1/2NS @100mL/hr running per order. The patient's bed in the lowest position call light in reach, and fall and aspiration precaution reinforced. Strict fall precaution reinforced since the patient has history of fall. Will follow up the lab and order. Will closely monitor the patient. Will continue plan of care.
[2019-12-23 07:34] LABS: ALBUMIN 1.9 G/DL (3.4-5.0); ALBUMIN/GLOBULIN RATIO 0.4 (1.0-2.7); BILIRUBIN,TOTAL 0.6 MG/DL (0.2-1.0); CALCIUM 8.9 MG/DL (8.5-10.1); CREATININE 1.8 MG/DL (0.55-1.30); HEMATOCRIT 24.3 % (37.0-47.0); HEMOGLOBIN 7.3 G/DL (12.0-16.0); MEAN CORPUSCULAR VOLUME 91 FL (80-99); PLATELET COUNT 176 K/UL (150-450); POTASSIUM 5.3 MMOL/L (3.5-5.1); RED BLOOD COUNT 2.66 M/UL (4.20-5.40); RED CELL DISTRIBUTION WIDTH 16.5 % (11.6-14.8); WHITE BLOOD COUNT 7.6 K/UL (4.8-10.8)
--- NOTE | 2019-12-23 08:00 | NUR ---
NURSE NOTES: Initial vital signs taken. Morning nursing assessment done. The patient is still lethargic and only responding to deep pain at this time. Bipap setting per order. Bilateral soft wrist restraints per order. Will closely monitor the patient. Will continue plan of care.
--- NOTE | 2019-12-23 08:30 | NUR ---
NURSE NOTES: CHRISTIANO Escobar was notified regarding abnormal lab including abnormal ABG result. CHRISTIANO Escobar ordered to keep same bipap setting and recheck ABG at noon. Will closely monitor the patient. Will continue plan of care.
--- NOTE | 2019-12-23 08:52 | Diagnostic Imaging Report ---
EXAM: XR Chest, 1 View CLINICAL HISTORY: INFECT TECHNIQUE: Frontal view of the chest. COMPARISON: Chest x-ray dated 12/22/19 FINDINGS: Lungs: Pulmonary vascular congestion. Persistent opacity in the left lung base, which may represent atelectasis versus pneumonia. Subsegmental atelectasis in the medial right lung base. Pleural space: Persistent moderate left pleural effusion and mild right pleural effusion. Heart: Unremarkable. No cardiomegaly. Mediastinum: Unremarkable. Bones/joints: Unremarkable. Vasculature: Atherosclerotic calcifications are noted within the aortic arch. Tubes, lines and devices: Telemetry leads overlie the thorax. NG tube extends below the diaphragm and its tip is excluded from view. IMPRESSION: 1. No significant interval change from the prior chest x-ray. 2. Persistent moderate left pleural effusion and mild right pleural effusion. 3. Pulmonary vascular congestion. 4. Persistent opacity in the left lung base, which may represent atelectasis versus pneumonia.
[2019-12-23] MEDS: Enoxaparin 60mg Inj SUBQ SCH (09:00)
[2019-12-23] MEDS ORDERED: Enoxaparin 60mg Inj SUBQ SCH (09:00)
[2019-12-23] MEDS: Pantoprazole Inj IVP SCH ×2 (09:13→22:08)
[2019-12-23] MEDS: Micafungin 100 MG in NS 110 ML IVPB SCH (09:14)
[2019-12-23] MEDS: Bacitracin Oint 15gm Tube TOPIC SCH ×2 (09:16→18:23)
[2019-12-23] MEDS: Metoprolol Tartrate 50mg tab NG SCH ×2 (09:16→22:08)
[2019-12-23] MEDS: Acetaminophen 650mg/20.3ml NG PRN ×2 (09:44→13:53)
--- NOTE | 2019-12-23 10:00 | NUR ---
NURSE NOTES: Morning medications administered per order. Held Lovenox due to anemia and mild bleeding on blister on right knee. Administered Tylenol for mild pain based on FLACC score. Will closely monitor the patient. Will continue plan of care.
--- NOTE | 2019-12-23 10:06 | Pulmonolgy Critical Care Note ---
Luz Bowen SENIOR MAINTENANCE MECHANIC 12/23/19 1006: Critical Care - Asmt/Plan Assessment/Plan: ASSESSMENT acute hypoxemic hypercapnic resp failure, requiring BIPAP sepsis fungemia UTI with E coli ESBL UTI VRE possible aspiration PNA COPD Bronchospasm Atrial fibrillation with rapid ventricular response Congestive heart failure Acute renal failure on CKD Severe anemia Status post ground fall Tobacco dependency Morbid obesity probably GARY Homeless R knee edema and hematoma, likely sprain /strain post fall PLAN OF CARE ICU on BiPAP 03/04 FiO2 60% this am ABG with hypercapnia CXR 12/22 noted, pulm vascular congestion, possible PNA s/p Lasix 20 mg IV x 1 12/21, poor diuresis per attending IVF dc and started on Lasix 80 mg IV q 8 monitor volumes closely repeat ABG at noon low threshold for intubation pulm toilet Venous Duplex BLE -NGT Prior: prior ABG 12/18 was ok on O2 via NC pro BNP trending down gets VM over night usually, during the day transition to NC patient likely with GARY, needs OP polysomnogram if agrees UCX+ E coli ESBL, on meropenem as per ID leukocytosis resolved CXR 12/22 noted BCX 12/16 1/2 + yeast, fup with yeast ID, ? source BCX 12/17 NGTD UCX 12/16 VRE SCX 12/19 Staph aureus, ACB MDR now on meropenem , micafungin and Zyvox -as per ID recs , X ray R knee given fall 12/15 , large hematoma, swelling-no fx or dislocation ice R knee and elevate CT head no acute IC pathology fall precautions prior declined Nicotine patch Hgb trending down off ASA and a/c for now rate control- per cardio recs: on BB, Cardizem and Digoxin monitor volumes pro BNP trending down ECHO with pEF no evidence of WMA GI prophylaxis renal US no hydro, BL nonobstructive stones IV hydration monitor renal parameters, lytes , creat trending down - per nephro management, avoid nephrotoxics as possible discussion on weight loss if receptive - not at this time; anxious and wants to go home pain management anxiolytic prn SW consult for placement case discussed and evaluated by supervising physician ivy mccarty for a consult! Critical Care - Objective Last 24 Hour Vital Signs Date Time Temp Pulse Resp B/P (MAP) Pulse Ox O2 Delivery O2 Flow Rate FiO2 12/23/19 09:16 112 144/75 12/23/19 07:48 86 21 100 60 12/23/19 07:47 100 Bi-Pap 100 12/23/19 07:00 83 30 137/95 (109) 95 12/23/19 06:00 81 25 136/68 (90) 94 12/23/19 05:39 93 123/69 12/23/19 05:00 91 26 136/56 (82) 97 12/23/19 04:00 70 12/23/19 04:00 99.8 92 29 134/72 (92) 92 12/23/19 04:00 96 12/23/19 04:00 Bi-pap 12/23/19 03:05 101 26 99 60 12/23/19 03:00 93 29 142/77 97 12/23/19 03:00 100 22 142/77 (98) 98 12/23/19 02:30 95 21 139/61 95 12/23/19 02:00 80 21 139/61 (87) 100 12/23/19 01:00 78 17 104/65 (78) 92 12/23/19 00:00 98.9 83 138/88 (105) 100 12/23/19 00:00 70 12/23/19 00:00 83 12/23/19 00:00 Bi-pap 12/22/19 23:59 84 137/60 12/22/19 23:00 82 23 134/54 (80) 98 12/22/19 22:39 94 25 100 80 12/22/19 22:00 81 22 127/58 (81) 100 12/22/19 21:00 76 26 122/56 (78) 100 12/22/19 20:14 89 140/69 12/22/19 20:00 76 12/22/19 20:00 Bi-pap 12/22/19 20:00 80 12/22/19 20:00 99.2 85 28 140/69 (92) 100 12/22/19 19:26 68 28 100 80 12/22/19 19:25 100 Bi-Pap 100 12/22/19 19:00 64 27 133/54 (80) 95 12/22/19 18:25 89 149/64 12/22/19 18:00 99.2 89 33 149/64 (92) 98 12/22/19 17:00 87 33 133/53 (79) 98 12/22/19 16:00 82 12/22/19 16:00 88 33 145/71 (95) 100 12/22/19 16:00 Bi-pap 12/22/19 15:35 80 31 100 100 12/22/19 15:00 67 32 147/50 (82) 100 12/22/19 14:30 71 36 128/80 (96) 100 12/22/19 13:45 78 33 100 100 12/22/19 12:36 84 159/101 12/22/19 12:00 98.1 84 21 159/101 (120) 97 12/22/19 12:00 98 Objective: General Appearance: morbidly obese , asleep, but easily arousable and becomes anxious Lines, tubes and drains: peripheral HEENT: normocephalic, atraumatic, anicteric, NGT in , on BiPAP 24/12 FiO2 40 % Neck: non-tender Respiratory/Chest: chest wall non-tender, no accessory muscle use, decreased breath sounds; tachypnea Cardiovascular/Chest: irregularly irregular - A fib , tachy, distant heart sounds Abdomen: normal bowel sounds, non tender , obese, soft Extremities: no calf tenderness, moderate edema - +2 BLE, R knee with large hematoma, edema, Skin Exam: warm/dry, multiple tattoos Neurologic: abnormal gait - w/chair bound , asleep but easily arousable and becomes anxious Musculoskeletal: normal muscle bulk Micro: Microbiology Date/Time Source Procedure Growth Status 12/20/19 23:30 Sputum Induced Gram Stain - Final Resulted 12/20/19 23:30 Sputum Culture - Preliminary A.baumanii Complx - Mdr Staphylococcus Aureus Resulted Critical Care - Subjective Interval Events: transferred 12/21 to ICU due to acute resp failure, requiring BiPAP ABG on high BiPAP setting with hypercapnea asleep but arousable this am ABF still with resp acidosis A fib with RVR tachypneic CXR 12/22 not much changes from 12/21, s/p low dose of lasix 20 mg IV 12/21, not impressive diuresis Condition: critical IV Access: peripheral EKG Rhythm: Atrial Fibrillation - with RVR FI02: 60 Sputum Amount: None Fluids: NS at 100 Tube Feeding Amount: 0 I&O: Intake and Output 12/22/19 12/23/19 19:00 07:00 Intake Total 438.33 ml 1365 ml Output Total 1110 ml 590 ml Balance -671.67 ml 775 ml IV Total 438.33 ml 1315 ml Tube Feeding 0 ml 0 ml Other 50 ml Output Urine Total 1110 ml 590 ml CXR: CXR 12/22 1. No significant interval change from the prior chest x-ray. 2. Persistent moderate left pleural effusion and mild right pleural effusion. 3. Pulmonary vascular congestion. 4. Persistent opacity in the left lung base, which may represent atelectasis versus pneumonia. Colt Keen MD 12/23/19 1350: Critical Care - Asmt/Plan Assessment/Plan: Patient seen and examined with SENIOR MAINTENANCE MECHANIC. Agree with above A&P as it reflects our joint deliberations. Aggressive diuresis cont BiPAP as tolerated Thoracentesis eval if able Case d/w Dr. Dumont Time Spent (Minutes): other - 90 min cc time Luz Bowen NP Dec 23, 2019 10:06 Colt Keen MD Dec 23, 2019 13:50
--- NOTE | 2019-12-23 10:30 | NUR ---
NURSE NOTES: Dr. Dumont at the bedside assessed the patient. Dr. Dumont was notified regarding the patient's condition including, altered mental status, shallow breathing, tachypnea, current Bipap setting of 24/12 FiO2 60%, abnormal ABG, abnormal lab including hemoglobin, sodium, potassium, BUN, Cr, Phos, Mg, and Albumin, no bowel movement since 12/15 with history of coffee ground color residual on NGT on 12/22/2019, abnormal CXR result, 30-50mL/hr UOP. Dr. Dumont ordered as follows: Lasix 80mg IVP Q6HR, Solumedrol 40mg IVP once, Novolog sliding scale, NGT to be connected to low intermittent suction and hold suction for 90 minutes after medication administration. Will closely monitor the patient. Will continue plan of care. Addendum: 12/23/19 at 2137 by Samir Collins RN Dr. Dumont also discontinued IVF. Will continue plan of care.
[2019-12-23] MEDS ORDERED: Solu-MEDROL 40mg Inj IVP SCH (10:45)
[2019-12-23] MEDS: NovoLOG Insulin Flexpen SUBQ SCH ×3 (11:30→22:10)
--- NOTE | 2019-12-23 12:00 | NUR ---
NURSE NOTES: BS 136 noted. No Novolog coverage per protocol. The patient is tolerating Bipap setting well but still lethargic and agitated. The patient is on bilateral soft wrist restraints per order and skin and circulation is intact. Will closely monitor the patient. Will continue plan of car.e
--- NOTE | 2019-12-23 12:10 | NUR ---
NURSE NOTES: Dr. Keen ordered to reschedule ABG from 1200 to 1800. RT Skylar was notified. Will closely monitor the patient. Will continue plan of care.
--- NOTE | 2019-12-23 12:15 | NUR ---
NURSE NOTES: Dr. Beasley at the bedside assessed the patient. Notified the patient's condition of Bipap setting, altered mental status, on and off of fever, WBC trend, and generalized edema. Dr. Beasley order the patient to repeat COVID swab and start on PUI isolation. Dr. Beasley ordered new antibiotics to start. CRN was notified. Will closely monitor the patient. Will continue plan of care.
--- NOTE | 2019-12-23 13:50 | NUR ---
NURSE NOTES: Spoke with Kelli, the pharmacist, regarding new order of antibiotics. Confirmed with Kelli, the pharmacist, regarding Polymyxin B and the patient's allergy status. Per Kelli, okay to administer Polymyxin B per order since the patient's allergy does not affect on the ordered antibiotics. Will administer per order. Will continue plan of care.
[2019-12-23] MEDS: Polymyxin B Sulfate 500,000 units in D5W 550ml IV SCH ×2 (13:52→22:09)
--- NOTE | 2019-12-23 13:55 | NUR ---
NURSE NOTES: Tylenol administered and cooling measure applied for fever. Will recheck fever for the patient. Will closely monitor the patient. Will continue plan of care.
--- NOTE | 2019-12-23 13:58 | Infectious Diseases Prog Note ---
Assessment/Plan Assessment/Plan ASSESSMENT AND PLAN: 1. hx esbl e.coli uti/pyelonephritis, sepsis, leukocytosis, fevers mrsa and vre colonization, NATALIE, respiratory distress/failure Fungemia - + yeast in blood staph aureus pna/acinetobacter pna VRE uti - change abxt to zyvox, meropenem, polymyxin, micafungin - monitor labs and chest x-ray, f/u on cultures - icu care, supportive care - repeat covid testing 2. Chronic kidney failure, acute renal failure. 3. COPD. 4. Pulmonary followup. 5. Renal followup. 6. History of falls. 7. Atrial fibrillation. Cardiology followup. 8. Obesity. 9. Gait disorder. 10. Schizophrenia. 11. Homeless. 12. Allergic to erythromycin, haloperidol, and vancomycin. 13. Social history is negative. 14. Family history is noncontributory. 15. MAR is noted. 16. Case discussed with RN. 17. Continue treatment per Dr. Dumont and consultants. Subjective Constitutional: Reports: fever HEENT: Reports: congestion Respiratory: Reports: shortness of breath Cardiovascular: Denies: chest pain Gastrointestinal/Abdominal: Denies: nausea, vomiting, diarrhea Genitourinary: Reports: other - + trivedi Neurologic: Reports: weakness, confusion Psychiatric: Reports: other - NA Skin: Denies: rash Hematologic: Denies: bleeding Musculoskeletal: Reports: other - NA Allergies: Coded Allergies: ERYTHROMYCIN BASE (Verified Allergy, Severe, 12/12/19) HALOPERIDOL (Verified Allergy, Unknown, 12/12/19) VANCOMYCIN (Unverified Adverse Reaction, Intermediate, Shortness of Breath , 12/12/19) Objective Last 24 Hour Vital Signs Date Time Temp Pulse Resp B/P (MAP) Pulse Ox O2 Delivery O2 Flow Rate FiO2 12/23/19 12:33 110 158/67 12/23/19 11:28 101 35 100 60 12/23/19 09:16 112 144/75 12/23/19 07:48 86 21 100 60 12/23/19 07:47 100 Bi-Pap 100 12/23/19 07:00 83 30 137/95 (109) 95 12/23/19 06:00 81 25 136/68 (90) 94 12/23/19 05:39 93 123/69 12/23/19 05:00 91 26 136/56 (82) 97 12/23/19 04:00 70 12/23/19 04:00 99.8 92 29 134/72 (92) 92 12/23/19 04:00 96 12/23/19 04:00 Bi-pap 12/23/19 03:05 101 26 99 60 12/23/19 03:00 93 29 142/77 97 12/23/19 03:00 100 22 142/77 (98) 98 12/23/19 02:30 95 21 139/61 95 12/23/19 02:00 80 21 139/61 (87) 100 12/23/19 01:00 78 17 104/65 (78) 92 12/23/19 00:00 98.9 83 138/88 (105) 100 12/23/19 00:00 70 12/23/19 00:00 83 12/23/19 00:00 Bi-pap 12/22/19 23:59 84 137/60 12/22/19 23:00 82 23 134/54 (80) 98 12/22/19 22:39 94 25 100 80 12/22/19 22:00 81 22 127/58 (81) 100 12/22/19 21:00 76 26 122/56 (78) 100 12/22/19 20:14 89 140/69 12/22/19 20:00 76 12/22/19 20:00 Bi-pap 12/22/19 20:00 80 12/22/19 20:00 99.2 85 28 140/69 (92) 100 12/22/19 19:26 68 28 100 80 12/22/19 19:25 100 Bi-Pap 100 12/22/19 19:00 64 27 133/54 (80) 95 12/22/19 18:25 89 149/64 12/22/19 18:00 99.2 89 33 149/64 (92) 98 12/22/19 17:00 87 33 133/53 (79) 98 12/22/19 16:00 82 12/22/19 16:00 88 33 145/71 (95) 100 12/22/19 16:00 Bi-pap 12/22/19 15:35 80 31 100 100 12/22/19 15:00 67 32 147/50 (82) 100 12/22/19 14:30 71 36 128/80 (96) 100 Height (Feet): 5 Height (Inches): 6.00 Weight (Pounds): 298 General Appearance: other - sob, on bipap, no pressors HEENT: normocephalic, atraumatic, anicteric Respiratory/Chest: respiratory distress, accessory muscle use, crackles/rales, rhonchi - bilaterally Cardiovascular: regular rhythm, no gallop/murmur, tachycardia Abdomen: normal bowel sounds, soft, non tender, no organomegaly Genitourinary: other - + trivedi - urine cloudy Extremities: no cyanosis Skin: no rash Neurologic/Psychiatric: bow maker gift wrapping II-XII grossly normal, alert, responsive Lymphatic: no neck adenopathy Musculoskeletal: no effusion Chest x-ray - 11/17/19 - Procedure: XRAY Chest 1v Indication: Shortness of breath Technique: One view of the chest Comparison: 12/17/2019 Findings: The heart is enlarged. There is bilateral interstitial and airspace disease is again demonstrated, probably unchanged allowing for differences in degree of inspiration. Impression: Unchanged, over one day, findings as above. Chest x-ray - 12/21/19 - Procedure: XRAY Chest 1v Indication: Shortness of breath Technique: One view of the chest Comparison: 12/19/2019 Findings: The heart is enlarged. Bilateral extensive infiltrates are again demonstrated, stable to slightly worse allowing for differences in exposure technique. There is suggestion of increasing pleural fluid on the left. Nasogastric tube is again demonstrated. Impression: Stable to worsened bilateral extensive infiltrates, since exam of 2 days prior Increasing left pleural effusion Chest x-ray - 12/23/19 - IMPRESSION: 1. No significant interval change from the prior chest x-ray. 2. Persistent moderate left pleural effusion and mild right pleural effusion. 3. Pulmonary vascular congestion. 4. Persistent opacity in the left lung base, which may represent atelectasis versus pneumonia. Microbiology Date/Time Source Procedure Growth Status 12/18/19 23:20 Blood Blood Culture - Preliminary NO GROWTH AFTER 4 DAYS Resulted 12/20/19 23:30 Sputum Induced Gram Stain - Final Resulted 12/20/19 23:30 Sputum Culture - Preliminary A.baumanii Complx - Mdr Staphylococcus Aureus Resulted 12/17/19 20:45 Indwelling Cath Urine Culture - Final Enterococcus Faecium - Vre Complete 12/12/19 21:00 Rectum - Final NO CARBAPENEM-RESISTANT ENTEROBACTERI... Complete Microbiology Date/Time Source Procedure Growth Status 12/20/19 23:30 Sputum Induced Gram Stain - Final Resulted 12/20/19 23:30 Sputum Culture - Preliminary A.baumanii Complx - Mdr Staphylococcus Aureus Resulted Laboratory Tests Test 12/22/19 14:30 12/22/19 14:53 12/22/19 18:00 12/22/19 22:00 Arterial Blood pH 7.222 (7.350-7.450) 7.203 (7.350-7.450) 7.165 (7.350-7.450) 7.222 (7.350-7.450) Arterial Blood Partial Pressure CO2 64.8 mmHg (35.0-45.0) *H 74.2 mmHg (35.0-45.0) *H 90.7 mmHg (35.0-45.0) *H 64.8 mmHg (35.0-45.0) *H Arterial Blood Partial Pressure O2 132.8 mmHg (75.0-100.0) H 97.9 mmHg (75.0-100.0) 126.4 mmHg (75.0-100.0) H 132.8 mmHg (75.0-100.0) H Arterial Blood HCO3 26.0 mmol/L (22.0-26.0) 28.5 mmol/L (22.0-26.0) H 32.0 mmol/L (22.0-26.0) H 26.0 mmol/L (22.0-26.0) Arterial Blood Oxygen Saturation 98.1 % (95-100) 96.8 % (95-100) 98.3 % (95-100) 98.1 % (95-100) Arterial Blood Base Excess -1.6 (-2-2) 0.1 (-2-2) 2.5 (-2-2) H -1.6 (-2-2) Eugene Test Positive Positive Positive Positive Test 12/23/19 06:45 12/23/19 08:08 White Blood Count 7.6 K/UL (4.8-10.8) Red Blood Count 2.66 M/UL (4.20-5.40) L Hemoglobin 7.3 G/DL (12.0-16.0) L Hematocrit 24.3 % (37.0-47.0) L Mean Corpuscular Volume 91 FL (80-99) Mean Corpuscular Hemoglobin 27.6 PG (27.0-31.0) Mean Corpuscular Hemoglobin Concent 30.2 G/DL (32.0-36.0) L Red Cell Distribution Width 16.5 % (11.6-14.8) H Platelet Count 176 K/UL (150-450) Mean Platelet Volume 7.1 FL (6.5-10.1) Neutrophils (%) (Auto) % (45.0-75.0) Lymphocytes (%) (Auto) % (20.0-45.0) Monocytes (%) (Auto) % (1.0-10.0) Eosinophils (%) (Auto) % (0.0-3.0) Basophils (%) (Auto) % (0.0-2.0) Differential Total Cells Counted 100 Neutrophils % (Manual) 73 % (45-75) Lymphocytes % (Manual) 15 % (20-45) L Monocytes % (Manual) 11 % (1-10) H Eosinophils % (Manual) 1 % (0-3) Basophils % (Manual) 0 % (0-2) Band Neutrophils 0 % (0-8) Nucleated Red Blood Cells 2 /100 WBC Platelet Estimate Adequate Platelet Morphology Normal Hypochromasia 3+ Anisocytosis 1+ Sodium Level 148 MMOL/L (136-145) H Potassium Level 5.3 MMOL/L (3.5-5.1) H Chloride Level 113 MMOL/L (98-107) H Carbon Dioxide Level 31 MMOL/L (21-32) Anion Gap 4 mmol/L (5-15) L Blood Urea Nitrogen 60 mg/dL (7-18) H Creatinine 1.8 MG/DL (0.55-1.30) H Estimat Glomerular Filtration Rate 28.0 mL/min (>60) Glucose Level 132 MG/DL (74-106) H Hemoglobin A1c 6.1 % (4.3-6.0) H Calcium Level 8.9 MG/DL (8.5-10.1) Phosphorus Level 5.0 MG/DL (2.5-4.9) H Magnesium Level 2.7 MG/DL (1.8-2.4) H Total Bilirubin 0.6 MG/DL (0.2-1.0) Aspartate Amino Transf (AST/SGOT) 18 U/L (15-37) Alanine Aminotransferase (ALT/SGPT) 23 U/L (12-78) Alkaline Phosphatase 75 U/L (46-116) Total Protein 7.2 G/DL (6.4-8.2) Albumin 1.9 G/DL (3.4-5.0) L Globulin 5.3 g/dL Albumin/Globulin Ratio 0.4 (1.0-2.7) L Arterial Blood pH 7.230 (7.350-7.450) Arterial Blood Partial Pressure CO2 70.1 mmHg (35.0-45.0) *H Arterial Blood Partial Pressure O2 102.5 mmHg (75.0-100.0) H Arterial Blood HCO3 28.7 mmol/L (22.0-26.0) H Arterial Blood Oxygen Saturation 95.9 % (95-100) Arterial Blood Base Excess 0.7 (-2-2) Eugene Test Positive Current Medications Medications (Trade) Dose Ordered Sig/Shiraz Route PRN Reason Start Time Stop Time Status Last Admin Dose Admin Acetaminophen (Tylenol) 650 mg Q4H PRN NG Mild Pain (Pain Scale 1-3) 12/22/19 16:00 01/11/20 22:14 12/23/19 09:44 Acetaminophen (Tylenol) 650 mg Q4H PRN NG Temp >100.5 12/22/19 16:00 01/11/20 22:14 Albuterol/ Ipratropium (Albuterol/ Ipratropium) 3 ml Q4H PRN HHN Shortness of Breath 12/22/19 18:45 12/26/19 18:44 Bacitracin (Bacitracin 15gm tube) 1 applic BID TOPIC 12/22/19 18:00 03/12/20 08:59 12/23/19 09:16 Clotrimazole (Lotrimin) 1 applic TWICE A DAY TOPIC 12/22/19 18:00 03/12/20 08:59 12/23/19 09:16 Dextrose (Dextrose 50%) 25 ml Q30M PRN IV Hypoglycemia 12/23/19 10:45 03/22/20 10:44 Dextrose (Dextrose 50%) 50 ml Q30M PRN IV Hypoglycemia 12/23/19 10:45 03/22/20 10:44 Diltiazem HCl (Cardizem Tab) 90 mg Q6HR NG 12/22/19 18:00 01/13/20 11:59 12/23/19 12:33 Enoxaparin Sodium (Lovenox) 60 mg DAILY SUBQ 12/23/19 09:00 03/22/20 08:59 Furosemide (Lasix) 80 mg Q6HR IV 12/23/19 11:00 01/22/20 10:59 12/23/19 11:50 Insulin Aspart (NovoLOG) BEFORE MEALS AND HS SUBQ 12/23/19 11:30 03/22/20 11:29 Iron Sucrose 100 mg/Sodium Chloride 60 ml @ 240 mls/hr BEDTIME IV 12/22/19 21:00 12/23/19 21:14 12/22/19 20:00 Linezolid 300 ml @ 300 mls/hr Q12HR IVPB 12/22/19 21:00 12/26/19 20:59 12/23/19 09:15 Magnesium Hydroxide (Mom) 30 ml HSPRN PRN NG Constipation 12/22/19 15:15 01/21/20 15:14 Metoprolol Tartrate (Lopressor) 50 mg Q12HR NG 12/22/19 21:00 03/18/20 20:59 12/23/19 09:16 Micafungin Sodium 100 mg/Sodium Chloride 110 ml @ 110 mls/hr Q24H IVPB 12/23/19 09:00 12/28/19 08:59 12/23/19 09:14 Nitroglycerin (Ntg) 0.4 mg Q5M PRN SL Prn Chest Pain 12/22/19 15:00 01/11/20 22:14 Ondansetron HCl (Zofran) 4 mg Q6H PRN IVP Nausea & Vomiting 12/22/19 15:15 01/11/20 15:14 Pantoprazole (Protonix) 40 mg EVERY 12 HOURS IVP 12/22/19 21:00 01/18/20 20:59 12/23/19 09:13 Polyethylene Glycol (Miralax) 17 gm BEDTIME NG 12/22/19 21:00 01/18/20 20:59 12/22/19 20:15 Polymyxin B Sulfate [id number] units/Dextrose 550 ml @ 550 mls/hr EVERY 12 HOURS IV 12/23/19 13:00 12/30/19 12:59 Risperidone (RisperDAL) 2 mg BEDTIME NG 12/22/19 21:00 02/04/20 20:59 12/22/19 20:15 Aleisha Coronel MD Dec 23, 2019 13:58
--- NOTE | 2019-12-23 13:59 | General Progress Note ---
Assessment/Plan Problem List: (1) Schizophrenia ICD Codes: F20.9 - Schizophrenia, unspecified SNOMED: 43535934 (2) GERD (gastroesophageal reflux disease) ICD Codes: K21.9 - Gastro-esophageal reflux disease without esophagitis SNOMED: 670871545 (3) Lymphadema (4) Smoker ICD Codes: F17.200 - Nicotine dependence, unspecified, uncomplicated SNOMED: 32145694 (5) Atrial fibrillation with rapid ventricular response ICD Codes: I48.91 - Unspecified atrial fibrillation SNOMED: 202436760425463 (6) CKD (chronic kidney disease) stage 3, GFR 30-59 ml/min ICD Codes: N18.3 - Chronic kidney disease, stage 3 (moderate) SNOMED: 338791057 (7) NATALIE (acute kidney injury) ICD Codes: N17.9 - Acute kidney failure, unspecified SNOMED: 8225213, 44123394 (8) COPD (chronic obstructive pulmonary disease) ICD Codes: J44.9 - Chronic obstructive pulmonary disease, unspecified SNOMED: 17071092 (9) UGI bleed ICD Codes: K92.2 - Gastrointestinal hemorrhage, unspecified SNOMED: 22689227 (10) Dysphagia ICD Codes: R13.10 - Dysphagia, unspecified SNOMED: 85478499, 544164244 (11) UTI (urinary tract infection) ICD Codes: N39.0 - Urinary tract infection, site not specified SNOMED: 35517652 (12) ESBL (extended spectrum beta-lactamase) producing bacteria infection ICD Codes: A49.9 - Bacterial infection, unspecified; Z16.12 - Extended spectrum beta lactamase (ESBL) resistance SNOMED: 788838958 (13) Dehydration ICD Codes: E86.0 - Dehydration SNOMED: 74076705 (14) CHF exacerbation ICD Codes: I50.9 - Heart failure, unspecified SNOMED: 443174309, 11443657761148 Status: stable Assessment/Plan: resp distress, icu, bipap now worse natalie,, I/O, update lab, hold diuretic , , coffee grounds in ng,+hematoma RLE stop eliquis ancd asa, lovenox now iv protonix, rx esbl and + vre uti,g+ cocci linezolid , remains high risk, psychotic and hallucinating d/w psych, ID, cardiology, chf wourse and increase lasix 80 iv q 6h, icu time 40 min Subjective ROS Limited/Unobtainable: Yes Allergies: Coded Allergies: ERYTHROMYCIN BASE (Verified Allergy, Severe, 12/12/19) HALOPERIDOL (Verified Allergy, Unknown, 12/12/19) VANCOMYCIN (Unverified Adverse Reaction, Intermediate, Shortness of Breath , 12/12/19) Objective Last 24 Hour Vital Signs Date Time Temp Pulse Resp B/P (MAP) Pulse Ox O2 Delivery O2 Flow Rate FiO2 12/23/19 12:33 110 158/67 12/23/19 11:28 101 35 100 60 12/23/19 09:16 112 144/75 12/23/19 07:48 86 21 100 60 12/23/19 07:47 100 Bi-Pap 100 12/23/19 07:00 83 30 137/95 (109) 95 12/23/19 06:00 81 25 136/68 (90) 94 12/23/19 05:39 93 123/69 12/23/19 05:00 91 26 136/56 (82) 97 12/23/19 04:00 70 12/23/19 04:00 99.8 92 29 134/72 (92) 92 12/23/19 04:00 96 12/23/19 04:00 Bi-pap 12/23/19 03:05 101 26 99 60 12/23/19 03:00 93 29 142/77 97 12/23/19 03:00 100 22 142/77 (98) 98 12/23/19 02:30 95 21 139/61 95 12/23/19 02:00 80 21 139/61 (87) 100 12/23/19 01:00 78 17 104/65 (78) 92 12/23/19 00:00 98.9 83 138/88 (105) 100 12/23/19 00:00 70 12/23/19 00:00 83 12/23/19 00:00 Bi-pap 12/22/19 23:59 84 137/60 12/22/19 23:00 82 23 134/54 (80) 98 12/22/19 22:39 94 25 100 80 12/22/19 22:00 81 22 127/58 (81) 100 12/22/19 21:00 76 26 122/56 (78) 100 12/22/19 20:14 89 140/69 12/22/19 20:00 76 12/22/19 20:00 Bi-pap 12/22/19 20:00 80 12/22/19 20:00 99.2 85 28 140/69 (92) 100 12/22/19 19:26 68 28 100 80 12/22/19 19:25 100 Bi-Pap 100 12/22/19 19:00 64 27 133/54 (80) 95 12/22/19 18:25 89 149/64 12/22/19 18:00 99.2 89 33 149/64 (92) 98 12/22/19 17:00 87 33 133/53 (79) 98 12/22/19 16:00 82 12/22/19 16:00 88 33 145/71 (95) 100 12/22/19 16:00 Bi-pap 12/22/19 15:35 80 31 100 100 12/22/19 15:00 67 32 147/50 (82) 100 12/22/19 14:30 71 36 128/80 (96) 100 Intake and Output 12/22/19 12/23/19 19:00 07:00 Intake Total 438.33 ml 1365 ml Output Total 1110 ml 590 ml Balance -671.67 ml 775 ml IV Total 438.33 ml 1315 ml Tube Feeding 0 ml 0 ml Other 50 ml Output Urine Total 1110 ml 590 ml Laboratory Tests 12/22/19 14:30: Arterial Blood pH 7.222*L, Arterial Blood Partial Pressure CO2 64.8*H, Arterial Blood Partial Pressure O2 132.8H, Arterial Blood HCO3 26.0, Arterial Blood Oxygen Saturation 98.1, Arterial Blood Base Excess -1.6, Eugene Test Positive 12/22/19 14:53: Arterial Blood pH 7.203*L, Arterial Blood Partial Pressure CO2 74.2*H, Arterial Blood Partial Pressure O2 97.9, Arterial Blood HCO3 28.5H, Arterial Blood Oxygen Saturation 96.8, Arterial Blood Base Excess 0.1, Eugene Test Positive 12/22/19 18:00: Arterial Blood pH 7.165*L, Arterial Blood Partial Pressure CO2 90.7*H, Arterial Blood Partial Pressure O2 126.4H, Arterial Blood HCO3 32.0H, Arterial Blood Oxygen Saturation 98.3, Arterial Blood Base Excess 2.5H, Eugene Test Positive 12/22/19 22:00: Arterial Blood pH 7.222*L, Arterial Blood Partial Pressure CO2 64.8*H, Arterial Blood Partial Pressure O2 132.8H, Arterial Blood HCO3 26.0, Arterial Blood Oxygen Saturation 98.1, Arterial Blood Base Excess -1.6, Eugene Test Positive 12/23/19 06:45: White Blood Count 7.6, Red Blood Count 2.66L, Hemoglobin 7.3L, Hematocrit 24.3L , Mean Corpuscular Volume 91, Mean Corpuscular Hemoglobin 27.6, Mean Corpuscular Hemoglobin Concent 30.2L, Red Cell Distribution Width 16.5H, Platelet Count 176, Mean Platelet Volume 7.1, Neutrophils (%) (Auto) , Lymphocytes (%) (Auto) , Monocytes (%) (Auto) , Eosinophils (%) (Auto) , Basophils (%) (Auto) , Differential Total Cells Counted 100, Neutrophils % ( Manual) 73, Lymphocytes % (Manual) 15L, Monocytes % (Manual) 11H, Eosinophils % (Manual) 1, Basophils % (Manual) 0, Band Neutrophils 0, Nucleated Red Blood Cells 2, Platelet Estimate Adequate, Platelet Morphology Normal, Hypochromasia 3 +, Anisocytosis 1+, Sodium Level 148H, Potassium Level 5.3H, Chloride Level 113H , Carbon Dioxide Level 31, Anion Gap 4L, Blood Urea Nitrogen 60H, Creatinine 1.8H, Estimat Glomerular Filtration Rate 28.0, Glucose Level 132H, Hemoglobin A1c 6.1H, Calcium Level 8.9, Phosphorus Level 5.0H, Magnesium Level 2.7H, Total Bilirubin 0.6, Aspartate Amino Transf (AST/SGOT) 18, Alanine Aminotransferase ( ALT/SGPT) 23, Alkaline Phosphatase 75, Total Protein 7.2, Albumin 1.9L, Globulin 5.3, Albumin/Globulin Ratio 0.4L 12/23/19 08:08: Arterial Blood pH 7.230*L, Arterial Blood Partial Pressure CO2 70.1*H, Arterial Blood Partial Pressure O2 102.5H, Arterial Blood HCO3 28.7H, Arterial Blood Oxygen Saturation 95.9, Arterial Blood Base Excess 0.7, Eugene Test Positive Height (Feet): 5 Height (Inches): 6.00 Weight (Pounds): 298 General Appearance: lethargic, confused, morbidly obese EENT: normal ENT inspection Cardiovascular: regularly irregular Respiratory/Chest: accessory muscle use, rhonchi - bilaterally Abdomen: non tender Edema: mild edema Neurologic: disoriented, unresponsive Benjamin Dumont MD Dec 23, 2019 13:59
--- NOTE | 2019-12-23 14:00 | NUR ---
NURSE NOTES: Dr. Keen at the bedside assessed the patient. Dr. Keen was notified regarding the patient's condition of altered mental status, current Bipap setting, abnormal ABG, shallow breathing, tachypnea, diuresis with Lasix per Dr. Dumont's order, and abnormal CXR result. Per Dr. Keen, reschedule ABG from 1200 to 1800 to see effectiveness of Lasix. Dr. Keen also ordered thoracentesis to be done on 12/24/2019. Will closely monitor the patient. Will continue plan of care.
--- NOTE | 2019-12-23 15:30 | NUR ---
NURSE NOTES: Bed bath given to the patient. Tolerated well. No BM noted. The patient is still lethargic but agitated and moaning. Bilateral soft wrist restraints on and skin and circulation is intact. Tolerating Bipap setting, NGT, and [place] well. Will closely monitor the patient. Will continue plan of care.
--- NOTE | 2019-12-23 16:00 | NUR ---
NURSE NOTES: Fever rechecked. Body temperature of 98.0F noted with cooling measure and Tylenol. Will closely monitor the patient. Will continue plan of care.
--- NOTE | 2019-12-23 16:56 | Surgery Progress Note ---
Surgery Progress Note Subjective Symptoms: worse Objective Last 24 Hour Vital Signs Date Time Temp Pulse Resp B/P (MAP) Pulse Ox O2 Delivery O2 Flow Rate FiO2 12/23/19 16:00 60 12/23/19 16:00 98.0 94 29 151/61 (91) 96 12/23/19 16:00 Bi-pap 12/23/19 15:00 100 31 147/65 (92) 97 12/23/19 14:45 97 16 97 60 12/23/19 14:23 99.6 12/23/19 14:00 101 28 133/67 (89) 95 12/23/19 13:00 100.3 100 26 136/56 (82) 95 12/23/19 12:33 110 158/67 12/23/19 12:00 108 23 162/78 (106) 95 12/23/19 12:00 Bi-pap 12/23/19 12:00 96 12/23/19 12:00 60 12/23/19 11:28 101 35 100 40 12/23/19 11:00 102 32 144/68 (93) 95 12/23/19 10:00 93 30 139/77 (97) 95 12/23/19 09:16 112 144/75 12/23/19 09:00 104 30 144/75 (98) 95 12/23/19 08:15 40 12/23/19 08:00 98.6 95 27 157/69 (98) 100 12/23/19 08:00 Bi-pap 12/23/19 08:00 77 12/23/19 08:00 60 12/23/19 07:48 86 21 100 60 12/23/19 07:47 100 Bi-Pap 100 12/23/19 07:00 83 30 137/95 (109) 95 12/23/19 06:00 81 25 136/68 (90) 94 12/23/19 05:39 93 123/69 12/23/19 05:00 91 26 136/56 (82) 97 12/23/19 04:00 70 12/23/19 04:00 99.8 92 29 134/72 (92) 92 12/23/19 04:00 96 12/23/19 04:00 Bi-pap 12/23/19 03:05 101 26 99 60 12/23/19 03:00 93 29 142/77 97 12/23/19 03:00 100 22 142/77 (98) 98 12/23/19 02:30 95 21 139/61 95 12/23/19 02:00 80 21 139/61 (87) 100 12/23/19 01:00 78 17 104/65 (78) 92 12/23/19 00:00 98.9 83 138/88 (105) 100 12/23/19 00:00 70 12/23/19 00:00 83 12/23/19 00:00 Bi-pap 12/22/19 23:59 84 137/60 12/22/19 23:00 82 23 134/54 (80) 98 12/22/19 22:39 94 25 100 80 12/22/19 22:00 81 22 127/58 (81) 100 12/22/19 21:00 76 26 122/56 (78) 100 12/22/19 20:14 89 140/69 12/22/19 20:00 76 12/22/19 20:00 Bi-pap 12/22/19 20:00 80 12/22/19 20:00 99.2 85 28 140/69 (92) 100 12/22/19 19:26 68 28 100 80 12/22/19 19:25 100 Bi-Pap 100 12/22/19 19:00 64 27 133/54 (80) 95 12/22/19 18:25 89 149/64 12/22/19 18:00 99.2 89 33 149/64 (92) 98 12/22/19 17:00 87 33 133/53 (79) 98 I&O Intake and Output 12/22/19 12/23/19 19:00 07:00 Intake Total 438.33 ml 1365 ml Output Total 1110 ml 590 ml Balance -671.67 ml 775 ml IV Total 438.33 ml 1315 ml Tube Feeding 0 ml 0 ml Other 50 ml Output Urine Total 1110 ml 590 ml Dressing: saturated Cardiovascular: RSR Respiratory: decreased breath sounds Abdomen: soft, present bowel sounds Extremities: edema, no cyanosis, other Laboratory Tests Test 12/22/19 18:00 12/22/19 22:00 12/23/19 06:45 12/23/19 08:08 Arterial Blood pH 7.165 (7.350-7.450) 7.222 (7.350-7.450) 7.230 (7.350-7.450) Arterial Blood Partial Pressure CO2 90.7 mmHg (35.0-45.0) *H 64.8 mmHg (35.0-45.0) *H 70.1 mmHg (35.0-45.0) *H Arterial Blood Partial Pressure O2 126.4 mmHg (75.0-100.0) H 132.8 mmHg (75.0-100.0) H 102.5 mmHg (75.0-100.0) H Arterial Blood HCO3 32.0 mmol/L (22.0-26.0) H 26.0 mmol/L (22.0-26.0) 28.7 mmol/L (22.0-26.0) H Arterial Blood Oxygen Saturation 98.3 % (95-100) 98.1 % (95-100) 95.9 % (95-100) Arterial Blood Base Excess 2.5 (-2-2) H -1.6 (-2-2) 0.7 (-2-2) Eugene Test Positive Positive Positive White Blood Count 7.6 K/UL (4.8-10.8) Red Blood Count 2.66 M/UL (4.20-5.40) L Hemoglobin 7.3 G/DL (12.0-16.0) L Hematocrit 24.3 % (37.0-47.0) L Mean Corpuscular Volume 91 FL (80-99) Mean Corpuscular Hemoglobin 27.6 PG (27.0-31.0) Mean Corpuscular Hemoglobin Concent 30.2 G/DL (32.0-36.0) L Red Cell Distribution Width 16.5 % (11.6-14.8) H Platelet Count 176 K/UL (150-450) Mean Platelet Volume 7.1 FL (6.5-10.1) Neutrophils (%) (Auto) % (45.0-75.0) Lymphocytes (%) (Auto) % (20.0-45.0) Monocytes (%) (Auto) % (1.0-10.0) Eosinophils (%) (Auto) % (0.0-3.0) Basophils (%) (Auto) % (0.0-2.0) Differential Total Cells Counted 100 Neutrophils % (Manual) 73 % (45-75) Lymphocytes % (Manual) 15 % (20-45) L Monocytes % (Manual) 11 % (1-10) H Eosinophils % (Manual) 1 % (0-3) Basophils % (Manual) 0 % (0-2) Band Neutrophils 0 % (0-8) Nucleated Red Blood Cells 2 /100 WBC Platelet Estimate Adequate Platelet Morphology Normal Hypochromasia 3+ Anisocytosis 1+ Sodium Level 148 MMOL/L (136-145) H Potassium Level 5.3 MMOL/L (3.5-5.1) H Chloride Level 113 MMOL/L (98-107) H Carbon Dioxide Level 31 MMOL/L (21-32) Anion Gap 4 mmol/L (5-15) L Blood Urea Nitrogen 60 mg/dL (7-18) H Creatinine 1.8 MG/DL (0.55-1.30) H Estimat Glomerular Filtration Rate 28.0 mL/min (>60) Glucose Level 132 MG/DL (74-106) H Hemoglobin A1c 6.1 % (4.3-6.0) H Calcium Level 8.9 MG/DL (8.5-10.1) Phosphorus Level 5.0 MG/DL (2.5-4.9) H Magnesium Level 2.7 MG/DL (1.8-2.4) H Total Bilirubin 0.6 MG/DL (0.2-1.0) Aspartate Amino Transf (AST/SGOT) 18 U/L (15-37) Alanine Aminotransferase (ALT/SGPT) 23 U/L (12-78) Alkaline Phosphatase 75 U/L (46-116) Total Protein 7.2 G/DL (6.4-8.2) Albumin 1.9 G/DL (3.4-5.0) L Globulin 5.3 g/dL Albumin/Globulin Ratio 0.4 (1.0-2.7) L Plan Problems: (1) Urinary tract infection (2) CHF exacerbation (3) History of schizophrenia (4) Atrial fibrillation with RVR (5) Schizophrenia (6) GERD (gastroesophageal reflux disease) (7) Smoker (8) Atrial fibrillation with rapid ventricular response (9) Lymphadema (10) COPD (chronic obstructive pulmonary disease) (11) CKD (chronic kidney disease) stage 3, GFR 30-59 ml/min (12) NATALIE (acute kidney injury) (13) Dehydration (14) Dysphagia (15) UTI (urinary tract infection) (16) UGI bleed (17) ESBL (extended spectrum beta-lactamase) producing bacteria infection (18) Constipation (19) Lactic acidosis (20) Tinea cruris (21) Onychomycosis (22) Emesis (23) Essential hypertension (24) Anemia (25) Cough (26) Depression (27) Depression (28) Edema (29) Rash (30) Opiate dependence (31) Opiate dependence (32) Opiate dependence (33) Opiate dependence (34) Pyelonephritis (35) Sepsis (36) UTI (urinary tract infection) (37) Nausea and vomiting (38) Abdominal pain Assessment & Plan: [age]-year-old female obese white abdominal pain deep tissue injury identified limited mobility on HD. KUB noted tube in place continue meds feeds Does not seem obstructed We will monitor FINDINGS: Lower thorax: Obscuration of the left costophrenic angle suggestive of pleural effusion. Intraperitoneal space: No free air. Gastrointestinal tract: Unremarkable. No dilation. Bones/joints: Unremarkable. Tubes, lines and devices: The nasogastric tube has the tip at the mid inferior aspect of the gastric body. Other findings: Nonspecific gas pattern. Single frontal view of the abdomen demonstrates tip of the enteric tube and distal side-port projecting over the stomach. Gas is identified within the nondistended large bowel. There is a paucity of small bowel gas seen. Partially visualized left pleural effusion. No other significant interval change. (39) Chest pain (40) Chest pain (41) Nausea (42) Obesity (43) Chronic ulcer of leg (44) Chronic ulcer of leg (45) Chronic ulcer of leg (46) ACS (acute coronary syndrome) (47) Acute chest pain (48) Encounter for dressing change or suture removal (49) Left leg cellulitis (50) Acute encephalopathy (51) Encounter for wound re-check (52) Intractable nausea and vomiting (53) Infection due to ESBL-producing Escherichia coli (54) Chronic venous stasis (55) Change of dressing (56) Change of dressing (57) Change of dressing (58) Change of dressing (59) Change of dressing (60) Change of dressing (61) Change of dressing (62) Change of dressing (63) ESBL urine (64) Lymphadema (65) Lymphedema (66) Lymphedema (67) Lymphedema (68) Lymphedema (69) Lymphedema (70) Lymphedema (71) Lymphedema (72) Lymphedema (73) Open wound of foot (74) Open wound of foot (75) cellulitis (76) chronic lymphedema (77) chronic lymphedema (78) chronic lymphedema (79) hypertension uncontrolled (80) hypertension uncontrolled (81) Intertrigo (82) Sciatica (83) Cellulitis (84) Schizophrenia (85) Chronic bronchitis (86) HTN (hypertension) (87) Venous stasis ulcers (88) Medication refill (89) Chest pain, atypical (90) BMI 45.0-49.9, adult (91) Lymphedema of both lower extremities (92) hypertension uncontrolled (93) hypertension uncontrolled (94) hypertension uncontrolled (95) tenia corpus (96) Deep tissue injury Assessment & Plan: Morbidly obese pt whom presented on admission with Pressure injuries, Edemae bilat lower extremities eschar to dorsal aspects of metatarsals. Pt is very demanding of staff and can be resistive to repositioning. DTPI noted to L Sacrum(L)5.5cm x (W)2.5cm. Base of Pressure Injury is Maroon and indurated with surrounding non-blanchable erythema DTPI R Sacrum(L)5.5cm x (W)2.3cm. Base of Pressure Injury is maroon with purpuric center that is fluctuant. Pt complained of tenderness when minimally palpated. Bilat lower extremities are edematous . Dry eschar noted to nail matrix and tip of L 1st metatarsal, Dorsal L 2nd metatarsal, R 2nd and R 4th metatarsals. Both heels are boggy with non-Blanchable erythema. blisters forming on Right lower extremity anterior tibia. not infected cellulitis / edema on b/l le stable cont abx Tx.Plan: Apply Moisture Barrier Paste to Sacrum R and L gluteal cheeks. Cover with Optifoam drsgs. Change every 3 days and prn. Apply Betadine to dry eschar metatarsals both feet Daily. Apply Cavilon Skin Barrier to both heels. Cover each heel with Optifoam drsgs. Change every 7days and prn. Reposition at least every 2hours or as tolerated. Off-load heels with pillow. Juan Manuel Buckner Dec 23, 2019 16:56
--- NOTE | 2019-12-23 17:18 | NUR ---
CASE MANAGEMENT:REVIEW SI;E COLI UTI. COPD. ASP PNA. AFIB W/ PVC UNCONTROLLED HR . BLE EDEMA 100.3 112 35 162/78 95% ON BiPAP FIO2 60% H/H 7.3/24.3 NA 148 K+ 5.3 BUN 60 CR 1.8 PHOS 5.0 MAG 2.7 ALB 1.9 IS; MICAFUNGIN IV Q24 DILTIAZEM NG Q6 LOPRESSOR NG Q12 PROTONIX IV Q12 IRON SUCROSE IV HS MEROPENEM IV Q12 IVF NS @ 150 ML/HR POLYMYXIN B SULFATE IV Q12 IV SOLU MEDROL ONCE LOVENOX SUBQ QD LINEZOLID IV Q12 ICU STATUS DCP;FROM [facility]
--- NOTE | 2019-12-23 17:25 | NUR ---
INSURANCE CLINICALS & REVIEWS FOR 12/21 & 12/23/19 FAXED TO [facility] PH: NEL FARAH [phone] [facility]: [phone]
--- NOTE | 2019-12-23 17:30 | NUR ---
NURSE NOTES: LORENA 228 noted. Novolog administered per order. Will closely monitor the patient. Will continue plan of care. Addendum: 12/23/19 at 2153 by Samir Collins RN @1830 Late dose of Novolog administered since the patient was agitated and refusing to get Novolog. Novolog administered after the patient became calm. Will continue plan of care.
--- NOTE | 2019-12-23 18:20 | NUR ---
NURSE NOTES: Paged RT again for 1800 scheduled ABG. Per RT, they will work on ABG as soon as possible. Will closely monitor the patient. Will continue plan of care.
--- NOTE | 2019-12-23 19:30 | NUR ---
NURSE HAND-OFF REPORT: Important Events on Shift: Fever, NGT to low intermittent suction, COVID swab to repeat,Bilateral soft wrist restraints, Abnormal ABG Patient Status: Stable, Full code Diet: NPO, NGT to low intermittent suction Pending Orders: COVID swab, Thoracentesis (12/23), ABG follow up 1800, Low intermittent suction Pending Results/Labs:OB stool, COVID swab, ABG Pending MD notification: N Latest Vital Signs: Temperature 98.0 , Pulse 81 , B/P 145 /53 , Respiratory Rate 30 , O2 SAT 60 , Bi-pap, O2 Flow Rate 12.0 . Vital Sign Comment: Stable EKG Rhythm: Atrial Fibrillation Rhythm change?: N MD Notified?: Elizabeth Meek MD Response: Latest Abreu Fall Score: 75 Fall Risk: High Risk Safety Measures: Call light Within Reach, Bed Alarm Zone 2, Side Rails Side Rails x3, Bed position Low and Locked. Fall Precautions: Yellow Socks Yellow Gown Door Sign Patient Fall Education Report given to NOEL Dalal. The patient is stable at this time. Endorsed plan of care.
--- NOTE | 2019-12-23 19:50 | NUR ---
Nurse Note: Pt lethargic, tachypneic, pallor. Winces at deep pain. RT called and at bedside collecting ABG. Pt on bipap with settings of 24/12, FiO2 60%, and EtCO2 monitoring in place. RT NGT noted. SLIV noted on RT upper arm; patent. RT AC IV infusing fluids. SLIV RT wrist; patent. Bilateral soft wrist restraints noted; skin intact on inspection. Pt has bilateral knee hematomas; Optifoam noted on RT knee; no skin breakdown on LT knee. Isolation precautions continued per orders. All safety measures met; will continue to monitor.
--- NOTE | 2019-12-23 20:27 | NUR ---
Nurse Note: ABG obtained by RT. Results back and contacted Dr. Bowen and Dr. Keen for critical results. Awaiting orders.
--- NOTE | 2019-12-23 21:39 | NUR ---
Nurse Note: Pt intubated by Dr. Silva around 2129. 7.5 ETT, 24cm at teeth. Pt tolerated well. Called and left voicemail to Dr. Keen for sedation orders and called and left voicemail to Dr. Dumont to update him on pt status. Pt on vent; setting AC 16, 600TV, Peep 5, 55%O2.
--- NOTE | 2019-12-23 21:47 | NUR ---
Nurse Note: Dr. Keen called back, Fentanyl drip ordered. Per MD, pt to be started on starting dose and titrate to reach RASS-2. COVID swab obtained and sent
[2019-12-23] MEDS ORDERED: fentaNYL 2500mcg/NS 250ml 250 ML IV SCH (22:00)
--- NOTE | 2019-12-23 22:05 | Diagnostic Imaging Report ---
INDICATION: Status post intubation. COMPARISON: Chest x-ray same day and 8:23 AM. Findings/impression: Tip of the endotracheal tube is 4 cm above the devika. Enteric tube with the tip is not included on this exam. No other significant interval change from the earlier days chest radiograph.
[2019-12-23] MEDS: Iron Sucrose 100 MG in NS 55 ML IV SCH (22:08)
[2019-12-23] MEDS: Miralax 17gm pkt NG SCH (22:09)
[2019-12-23] MEDS: fentaNYL 2500mcg/NS 250ml 250 ML IV SCH (22:18)
[2019-12-23] MEDS ORDERED: 1/2 NS 1000ml IV ONE (22:40)
--- NOTE | 2019-12-23 22:44 | General Progress Note ---
Assessment/Plan Status: stable Assessment/Plan: Assessment/Plan Problem List: (1) CKD (chronic kidney disease) stage 3, GFR 30-59 ml/min ICD Codes: N18.3 - Chronic kidney disease, stage 3 (moderate) SNOMED: 840950244 (2) COPD / Respiratory failure ICD Codes: J44.9 - Chronic obstructive pulmonary disease, unspecified SNOMED: 06547276 (3) Smoker ICD Codes: F17.200 - Nicotine dependence, unspecified, uncomplicated SNOMED: 90912713 (4) GERD (gastroesophageal reflux disease) ICD Codes: K21.9 - Gastro-esophageal reflux disease without esophagitis SNOMED: 005113078 (5) Atrial fibrillation with RVR ICD Codes: I48.91 - Unspecified atrial fibrillation SNOMED: 494367372492724 Assessment/Plan: s/p ngt placement ppi bid fu H&H monitor labs bowel regimen needs clearance for GI procedures NGTF on Lovenox Subjective Allergies: Coded Allergies: ERYTHROMYCIN BASE (Verified Allergy, Severe, 12/12/19) HALOPERIDOL (Verified Allergy, Unknown, 12/12/19) VANCOMYCIN (Unverified Adverse Reaction, Intermediate, Shortness of Breath , 12/12/19) Subjective above noted seen earlier minimally interactive subsequently intubated Objective Last 24 Hour Vital Signs Date Time Temp Pulse Resp B/P (MAP) Pulse Ox O2 Delivery O2 Flow Rate FiO2 12/23/19 22:18 23 109/51 Mechanical Ventilator 55 12/23/19 22:08 76 115/68 12/23/19 21:35 86 16 55 12/23/19 19:47 82 16 93 60 12/23/19 19:46 60 Bi-Pap 93 12/23/19 19:00 81 30 145/53 (83) 95 12/23/19 18:23 85 147/70 12/23/19 18:00 89 28 147/70 (95) 92 12/23/19 17:00 93 29 152/70 (97) 94 12/23/19 16:00 60 12/23/19 16:00 98.0 94 29 151/61 (91) 96 12/23/19 16:00 93 12/23/19 16:00 Bi-pap 12/23/19 15:00 100 31 147/65 (92) 97 12/23/19 14:45 97 16 97 60 12/23/19 14:23 99.6 12/23/19 14:00 101 28 133/67 (89) 95 12/23/19 13:00 100.3 100 26 136/56 (82) 95 12/23/19 12:33 110 158/67 12/23/19 12:00 108 23 162/78 (106) 95 12/23/19 12:00 Bi-pap 12/23/19 12:00 96 12/23/19 12:00 60 12/23/19 11:28 101 35 100 40 12/23/19 11:00 102 32 144/68 (93) 95 12/23/19 10:00 93 30 139/77 (97) 95 12/23/19 09:16 112 144/75 12/23/19 09:00 104 30 144/75 (98) 95 12/23/19 08:15 40 12/23/19 08:00 98.6 95 27 157/69 (98) 100 12/23/19 08:00 Bi-pap 12/23/19 08:00 77 12/23/19 08:00 60 12/23/19 07:48 86 21 100 60 12/23/19 07:47 100 Bi-Pap 100 12/23/19 07:00 83 30 137/95 (109) 95 12/23/19 06:00 81 25 136/68 (90) 94 12/23/19 05:39 93 123/69 12/23/19 05:00 91 26 136/56 (82) 97 12/23/19 04:00 70 12/23/19 04:00 99.8 92 29 134/72 (92) 92 12/23/19 04:00 96 12/23/19 04:00 Bi-pap 12/23/19 03:05 101 26 99 60 12/23/19 03:00 93 29 142/77 97 12/23/19 03:00 100 22 142/77 (98) 98 12/23/19 02:30 95 21 139/61 95 12/23/19 02:00 80 21 139/61 (87) 100 12/23/19 01:00 78 17 104/65 (78) 92 12/23/19 00:00 98.9 83 138/88 (105) 100 12/23/19 00:00 70 12/23/19 00:00 83 12/23/19 00:00 Bi-pap 12/22/19 23:59 84 137/60 12/22/19 23:00 82 23 134/54 (80) 98 Intake and Output 12/22/19 12/23/19 19:00 07:00 Intake Total 438.33 ml 1365 ml Output Total 1110 ml 590 ml Balance -671.67 ml 775 ml IV Total 438.33 ml 1315 ml Tube Feeding 0 ml 0 ml Other 50 ml Output Urine Total 1110 ml 590 ml Laboratory Tests 12/23/19 06:45: White Blood Count 7.6, Red Blood Count 2.66L, Hemoglobin 7.3L, Hematocrit 24.3L , Mean Corpuscular Volume 91, Mean Corpuscular Hemoglobin 27.6, Mean Corpuscular Hemoglobin Concent 30.2L, Red Cell Distribution Width 16.5H, Platelet Count 176, Mean Platelet Volume 7.1, Neutrophils (%) (Auto) , Lymphocytes (%) (Auto) , Monocytes (%) (Auto) , Eosinophils (%) (Auto) , Basophils (%) (Auto) , Differential Total Cells Counted 100, Neutrophils % ( Manual) 73, Lymphocytes % (Manual) 15L, Monocytes % (Manual) 11H, Eosinophils % (Manual) 1, Basophils % (Manual) 0, Band Neutrophils 0, Nucleated Red Blood Cells 2, Platelet Estimate Adequate, Platelet Morphology Normal, Hypochromasia 3 +, Anisocytosis 1+, Sodium Level 148H, Potassium Level 5.3H, Chloride Level 113H , Carbon Dioxide Level 31, Anion Gap 4L, Blood Urea Nitrogen 60H, Creatinine 1.8H, Estimat Glomerular Filtration Rate 28.0, Glucose Level 132H, Hemoglobin A1c 6.1H, Calcium Level 8.9, Phosphorus Level 5.0H, Magnesium Level 2.7H, Total Bilirubin 0.6, Aspartate Amino Transf (AST/SGOT) 18, Alanine Aminotransferase ( ALT/SGPT) 23, Alkaline Phosphatase 75, Total Protein 7.2, Albumin 1.9L, Globulin 5.3, Albumin/Globulin Ratio 0.4L 12/23/19 08:08: Arterial Blood pH 7.230*L, Arterial Blood Partial Pressure CO2 70.1*H, Arterial Blood Partial Pressure O2 102.5H, Arterial Blood HCO3 28.7H, Arterial Blood Oxygen Saturation 95.9, Arterial Blood Base Excess 0.7, Eugene Test Positive 12/23/19 12:37: POC Whole Blood Glucose [Pending] 12/23/19 18:00: Arterial Blood pH 6.935*L, Arterial Blood Partial Pressure CO2 166.2*H, Arterial Blood Partial Pressure O2 73.9L, Arterial Blood HCO3 34.5H, Arterial Blood Oxygen Saturation 88.1*L, Arterial Blood Base Excess 0.4, Eugene Test Positive Height (Feet): 5 Height (Inches): 6.00 Weight (Pounds): 298 Objective Obese WW NCAT supple CTA RR abd obese (+) edema, large blistered bruise on (R) Antoine Juares MD Dec 23, 2019 22:44
--- NOTE | 2019-12-23 23:16 | Psych Consult Progress Note ---
Psychiatry Progress Note Psychiatry Progress Note Subjective the pt has waxing and waning of conciseness poor memory Medications Current Medications Medications (Trade) Dose Ordered Sig/Shiraz Route PRN Reason Start Time Stop Time Status Last Admin Dose Admin Acetaminophen (Tylenol) 650 mg Q4H PRN NG Mild Pain (Pain Scale 1-3) 12/22/19 16:00 01/11/20 22:14 12/23/19 09:44 Acetaminophen (Tylenol) 650 mg Q4H PRN NG Temp >100.5 12/22/19 16:00 01/11/20 22:14 12/23/19 13:53 Albuterol/ Ipratropium (Albuterol/ Ipratropium) 3 ml Q4H PRN HHN Shortness of Breath 12/22/19 18:45 12/26/19 18:44 Bacitracin (Bacitracin 15gm tube) 1 applic BID TOPIC 12/22/19 18:00 03/12/20 08:59 12/23/19 18:23 Clotrimazole (Lotrimin) 1 applic TWICE A DAY TOPIC 12/22/19 18:00 03/12/20 08:59 12/23/19 18:24 Dextrose (Dextrose 50%) 25 ml Q30M PRN IV Hypoglycemia 12/23/19 10:45 03/22/20 10:44 Dextrose (Dextrose 50%) 50 ml Q30M PRN IV Hypoglycemia 12/23/19 10:45 03/22/20 10:44 Diltiazem HCl (Cardizem Tab) 90 mg Q6HR NG 12/22/19 18:00 01/13/20 11:59 12/23/19 18:23 Enoxaparin Sodium (Lovenox) 60 mg DAILY SUBQ 12/23/19 09:00 03/22/20 08:59 Fentanyl Citrate 250 ml @ 0 mls/hr Q24H IV 12/23/19 22:30 12/25/19 22:00 12/23/19 22:18 Furosemide (Lasix) 80 mg Q6HR IV 12/23/19 11:00 01/22/20 10:59 12/23/19 18:22 Insulin Aspart (NovoLOG) BEFORE MEALS AND HS SUBQ 12/23/19 11:30 03/22/20 11:29 12/23/19 22:10 Linezolid 300 ml @ 300 mls/hr Q12HR IVPB 12/22/19 21:00 12/26/19 20:59 12/23/19 22:08 Magnesium Hydroxide (Mom) 30 ml HSPRN PRN NG Constipation 12/22/19 15:15 01/21/20 15:14 Meropenem 500 mg/ Sodium Chloride 55 ml @ 110 mls/hr Q12H IVPB 12/23/19 16:00 12/28/19 15:59 12/23/19 16:45 Metoprolol Tartrate (Lopressor) 50 mg Q12HR NG 12/22/19 21:00 03/18/20 20:59 12/23/19 22:08 Micafungin Sodium 100 mg/Sodium Chloride 110 ml @ 110 mls/hr Q24H IVPB 12/23/19 09:00 12/28/19 08:59 12/23/19 09:14 Nitroglycerin (Ntg) 0.4 mg Q5M PRN SL Prn Chest Pain 12/22/19 15:00 01/11/20 22:14 Ondansetron HCl (Zofran) 4 mg Q6H PRN IVP Nausea & Vomiting 12/22/19 15:15 01/11/20 15:14 Pantoprazole (Protonix) 40 mg EVERY 12 HOURS IVP 12/22/19 21:00 01/18/20 20:59 12/23/19 22:08 Polyethylene Glycol (Miralax) 17 gm BEDTIME NG 12/22/19 21:00 01/18/20 20:59 12/23/19 22:09 Polymyxin B Sulfate 282036 units/Dextrose 550 ml @ 550 mls/hr EVERY 12 HOURS IV 12/23/19 13:00 12/30/19 12:59 12/23/19 22:09 Risperidone (RisperDAL) 2 mg BEDTIME NG 12/22/19 21:00 02/04/20 20:59 12/23/19 22:08 Neurological/Psychiatric: Reports: anxiety, depressed, emotional problems Allergies: Coded Allergies: ERYTHROMYCIN BASE (Verified Allergy, Severe, 12/12/19) HALOPERIDOL (Verified Allergy, Unknown, 12/12/19) VANCOMYCIN (Unverified Adverse Reaction, Intermediate, Shortness of Breath , 12/12/19) Objective Data Height (Feet): 5 Height (Inches): 6.00 Weight (Pounds): 298 General Appearance: lethargic, confused, morbidly obese Additional Comments: confused. Mood is anxious. Affect is flat. Thought process, there is a paucity of thought content. Thought content, no suicidal or homicidal ideation. Cognition is impaired. Insight and judgment is impaired. Assessment/Plan [place] I: haldol im prn morphine low dose 1mg q 6 prn Status: stable Status Narrative haldol im prn morphine low dose 1mg q 6 prn Assessment/Plan: haldol im prn morphine low dose 1mg q 6 prn Harris Ballesteros MD Dec 23, 2019 23:16
[2019-12-24] VITALS (49 sets, daily range): BP systolic 76–154; BP diastolic 35–119
--- NOTE | 2019-12-24 00:33 | NUR ---
NURSE NOTES: Message left for MD Keen at this time in regards to post intubation ABG. Also fentanyl gtt held due to patient [place] 42 and SBP < 90. Awaiting call back.
--- NOTE | 2019-12-24 00:45 | NUR ---
NURSE NOTES: Deepak from the LAB called with rapid COVID result patient positive. MD Keen notified, New orders received and read back.
--- NOTE | 2019-12-24 00:46 | Cardiology Progress Note ---
Subjective DATE OF SERVICE: Dec 23, 2019 Doing poorly - remains in ICU. Monitor: AFIb Persisting respiratory acidosis; placed on bipap support. Had coffee ground material in NGTube and hematoma on right leg; anti- coagulation was stopped yesterday Venous Duplex: negative for DVT Renal fxn and free water deficit still impaired Objective Last 24 Hour Vital Signs Date Time Temp Pulse Resp B/P (MAP) Pulse Ox O2 Delivery O2 Flow Rate FiO2 12/24/19 00:18 16 106/39 Mechanical Ventilator 55 12/24/19 00:03 16 105/57 Mechanical Ventilator 55 12/23/19 23:48 17 108/64 Mechanical Ventilator 55 12/23/19 23:36 82 110/72 12/23/19 23:33 18 119/81 Mechanical Ventilator 55 12/23/19 23:18 17 142/66 Mechanical Ventilator 55 12/23/19 23:03 19 108/49 Mechanical Ventilator 55 12/23/19 22:48 28 124/53 Mechanical Ventilator 55 12/23/19 22:33 17 142/66 Mechanical Ventilator 55 12/23/19 22:18 23 109/51 Mechanical Ventilator 55 12/23/19 22:08 76 115/68 12/23/19 21:35 86 16 55 12/23/19 19:47 82 16 93 60 12/23/19 19:46 60 Bi-Pap 93 12/23/19 19:00 81 30 145/53 (83) 95 12/23/19 18:23 85 147/70 12/23/19 18:00 89 28 147/70 (95) 92 12/23/19 17:00 93 29 152/70 (97) 94 12/23/19 16:00 60 12/23/19 16:00 98.0 94 29 151/61 (91) 96 12/23/19 16:00 93 12/23/19 16:00 Bi-pap 12/23/19 15:00 100 31 147/65 (92) 97 12/23/19 14:45 97 16 97 60 12/23/19 14:23 99.6 12/23/19 14:00 101 28 133/67 (89) 95 12/23/19 13:00 100.3 100 26 136/56 (82) 95 12/23/19 12:33 110 158/67 12/23/19 12:00 108 23 162/78 (106) 95 12/23/19 12:00 Bi-pap 12/23/19 12:00 96 12/23/19 12:00 60 12/23/19 11:28 101 35 100 40 12/23/19 11:00 102 32 144/68 (93) 95 12/23/19 10:00 93 30 139/77 (97) 95 12/23/19 09:16 112 144/75 12/23/19 09:00 104 30 144/75 (98) 95 12/23/19 08:15 40 12/23/19 08:00 98.6 95 27 157/69 (98) 100 12/23/19 08:00 Bi-pap 12/23/19 08:00 77 12/23/19 08:00 60 12/23/19 07:48 86 21 100 60 12/23/19 07:47 100 Bi-Pap 100 12/23/19 07:00 83 30 137/95 (109) 95 12/23/19 06:00 81 25 136/68 (90) 94 12/23/19 05:39 93 123/69 12/23/19 05:00 91 26 136/56 (82) 97 12/23/19 04:00 70 12/23/19 04:00 99.8 92 29 134/72 (92) 92 12/23/19 04:00 96 12/23/19 04:00 Bi-pap 12/23/19 03:05 101 26 99 60 12/23/19 03:00 93 29 142/77 97 12/23/19 03:00 100 22 142/77 (98) 98 12/23/19 02:30 95 21 139/61 95 12/23/19 02:00 80 21 139/61 (87) 100 12/23/19 01:00 78 17 104/65 (78) 92 ROS: unchanged from 12/12/19 HEENT: other - NGtube LUNGS: diminished breath sounds CARDIAC: normal S1 and S2, irregularly irregular ABDOMEN: other - obese EXTREMITIES: moderate edema - mostly non pitting, other - hematoma right leg Laboratory Tests Test 12/23/19 06:45 12/23/19 08:08 12/23/19 12:37 12/23/19 18:00 White Blood Count 7.6 K/UL (4.8-10.8) Red Blood Count 2.66 M/UL (4.20-5.40) L Hemoglobin 7.3 G/DL (12.0-16.0) L Hematocrit 24.3 % (37.0-47.0) L Mean Corpuscular Volume 91 FL (80-99) Mean Corpuscular Hemoglobin 27.6 PG (27.0-31.0) Mean Corpuscular Hemoglobin Concent 30.2 G/DL (32.0-36.0) L Red Cell Distribution Width 16.5 % (11.6-14.8) H Platelet Count 176 K/UL (150-450) Mean Platelet Volume 7.1 FL (6.5-10.1) Neutrophils (%) (Auto) % (45.0-75.0) Lymphocytes (%) (Auto) % (20.0-45.0) Monocytes (%) (Auto) % (1.0-10.0) Eosinophils (%) (Auto) % (0.0-3.0) Basophils (%) (Auto) % (0.0-2.0) Differential Total Cells Counted 100 Neutrophils % (Manual) 73 % (45-75) Lymphocytes % (Manual) 15 % (20-45) L Monocytes % (Manual) 11 % (1-10) H Eosinophils % (Manual) 1 % (0-3) Basophils % (Manual) 0 % (0-2) Band Neutrophils 0 % (0-8) Nucleated Red Blood Cells 2 /100 WBC Platelet Estimate Adequate Platelet Morphology Normal Hypochromasia 3+ Anisocytosis 1+ Sodium Level 148 MMOL/L (136-145) H Potassium Level 5.3 MMOL/L (3.5-5.1) H Chloride Level 113 MMOL/L (98-107) H Carbon Dioxide Level 31 MMOL/L (21-32) Anion Gap 4 mmol/L (5-15) L Blood Urea Nitrogen 60 mg/dL (7-18) H Creatinine 1.8 MG/DL (0.55-1.30) H Estimat Glomerular Filtration Rate 28.0 mL/min (>60) Glucose Level 132 MG/DL (74-106) H Hemoglobin A1c 6.1 % (4.3-6.0) H Calcium Level 8.9 MG/DL (8.5-10.1) Phosphorus Level 5.0 MG/DL (2.5-4.9) H Magnesium Level 2.7 MG/DL (1.8-2.4) H Total Bilirubin 0.6 MG/DL (0.2-1.0) Aspartate Amino Transf (AST/SGOT) 18 U/L (15-37) Alanine Aminotransferase (ALT/SGPT) 23 U/L (12-78) Alkaline Phosphatase 75 U/L (46-116) Total Protein 7.2 G/DL (6.4-8.2) Albumin 1.9 G/DL (3.4-5.0) L Globulin 5.3 g/dL Albumin/Globulin Ratio 0.4 (1.0-2.7) L Arterial Blood pH 7.230 (7.350-7.450) 6.935 (7.350-7.450) Arterial Blood Partial Pressure CO2 70.1 mmHg (35.0-45.0) *H 166.2 mmHg (35.0-45.0) *H Arterial Blood Partial Pressure O2 102.5 mmHg (75.0-100.0) H 73.9 mmHg (75.0-100.0) L Arterial Blood HCO3 28.7 mmol/L (22.0-26.0) H 34.5 mmol/L (22.0-26.0) H Arterial Blood Oxygen Saturation 95.9 % (95-100) 88.1 % (95-100) *L Arterial Blood Base Excess 0.7 (-2-2) 0.4 (-2-2) Eugene Test Positive Positive POC Whole Blood Glucose Pending Test 12/23/19 22:12 Arterial Blood pH 7.343 (7.350-7.450) Arterial Blood Partial Pressure CO2 54.5 mmHg (35.0-45.0) H Arterial Blood Partial Pressure O2 116.6 mmHg (75.0-100.0) H Arterial Blood HCO3 28.9 mmol/L (22.0-26.0) H Arterial Blood Oxygen Saturation 97.3 % (95-100) Arterial Blood Base Excess 2.9 (-2-2) H Eugene Test Positive Assessment/Plan Assessment/Plan CRITICAL AND GUARDED Acute respiratory failure Acute on chronic respiratory acidosis AFiB with RVR CHF, ac/chr diast - compensated BLE edema UTI with sepsis obesity COPD with bronchospasm Acute renal failure - worsening Pleural effusion GI bleeding Bipap support Monitor acid/base parameters. Antimicrobials Titrate rate-control meds - hold digitalis for elevated levels. Maintain diltiazem and metoprolol. DC apixaban - hold anticoagulation due to GI bleeding. Hypotonic IVF until po intake improves and free water deficit corrected. 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 Jerome Meek MD Dec 24, 2019 00:46
--- NOTE | 2019-12-24 01:05 | NUR ---
NURSE NOTES: Message left for MD Coronel in regards to positive COVID swab.
--- NOTE | 2019-12-24 01:15 | Emergency Room Report ---
Physical Exam Called to intubate patient on BiPAP. Note: intubation done 12/22 prior to mechanical ventilation. PUI. Severe respiratory acidosis. Patient unresponsive. Last 24 Hour Vital Signs Date Time Temp Pulse Resp B/P (MAP) Pulse Ox O2 Delivery O2 Flow Rate FiO2 12/24/19 00:18 16 106/39 Mechanical Ventilator 55 12/24/19 00:03 16 105/57 Mechanical Ventilator 55 12/23/19 23:48 17 108/64 Mechanical Ventilator 55 12/23/19 23:36 82 110/72 12/23/19 23:33 18 119/81 Mechanical Ventilator 55 12/23/19 23:18 17 142/66 Mechanical Ventilator 55 12/23/19 23:03 19 108/49 Mechanical Ventilator 55 12/23/19 22:48 28 124/53 Mechanical Ventilator 55 12/23/19 22:33 17 142/66 Mechanical Ventilator 55 12/23/19 22:18 23 109/51 Mechanical Ventilator 55 12/23/19 22:08 76 115/68 12/23/19 21:35 86 16 55 12/23/19 19:47 82 16 93 60 12/23/19 19:46 60 Bi-Pap 93 12/23/19 19:00 81 30 145/53 (83) 95 12/23/19 18:23 85 147/70 12/23/19 18:00 89 28 147/70 (95) 92 12/23/19 17:00 93 29 152/70 (97) 94 12/23/19 16:00 60 12/23/19 16:00 98.0 94 29 151/61 (91) 96 12/23/19 16:00 93 12/23/19 16:00 Bi-pap 12/23/19 15:00 100 31 147/65 (92) 97 12/23/19 14:45 97 16 97 60 12/23/19 14:23 99.6 12/23/19 14:00 101 28 133/67 (89) 95 12/23/19 13:00 100.3 100 26 136/56 (82) 95 12/23/19 12:33 110 158/67 12/23/19 12:00 108 23 162/78 (106) 95 12/23/19 12:00 Bi-pap 12/23/19 12:00 96 12/23/19 12:00 60 12/23/19 11:28 101 35 100 40 12/23/19 11:00 102 32 144/68 (93) 95 12/23/19 10:00 93 30 139/77 (97) 95 12/23/19 09:16 112 144/75 12/23/19 09:00 104 30 144/75 (98) 95 12/23/19 08:15 40 12/23/19 08:00 98.6 95 27 157/69 (98) 100 12/23/19 08:00 Bi-pap 12/23/19 08:00 77 12/23/19 08:00 60 12/23/19 07:48 86 21 100 60 12/23/19 07:47 100 Bi-Pap 100 12/23/19 07:00 83 30 137/95 (109) 95 12/23/19 06:00 81 25 136/68 (90) 94 12/23/19 05:39 93 123/69 12/23/19 05:00 91 26 136/56 (82) 97 12/23/19 04:00 70 12/23/19 04:00 99.8 92 29 134/72 (92) 92 12/23/19 04:00 96 12/23/19 04:00 Bi-pap 12/23/19 03:05 101 26 99 60 12/23/19 03:00 93 29 142/77 97 12/23/19 03:00 100 22 142/77 (98) 98 12/23/19 02:30 95 21 139/61 95 12/23/19 02:00 80 21 139/61 (87) 100 Sp02 EP Interpretation: reviewed, abnormal - at time prior to intubation, hypoxia as interpreted by me General Appearance: well appearing, no apparent distress, GCS 15, obese Head: normocephalic Eyes: bilateral eye PERRL, bilateral eye abnormal EOM - not tracking ENT: dry mucus membranes - concretions of mucous, other - BiPAP mask in place with etCO2 monitor Neck: supple Respiratory: decreased breath sounds, other - poor tidal volume Cardiovascular #1: regular rate, rhythm, edema - anasarca Gastrointestinal: non-distended, overweight Musculoskeletal: back normal, other - flaccid Neurologic: other - stupor Psychiatric: other - unresponsive Skin: cyanosis, mottled Intubation Intubation : Consent: Emergent Intubation Method: orotracheal Tube Size (cm): 7.5 - 23 cm teeth Intubation Complications: no complications Post Intubation Xray: Yes Attempts: One Patient Tolerated: Well Complications: None Progress Mucoid concretions removed with Joshua forceps. Medical Decision Making Diagnostic Impression: Primary Impression: Respiratory failure Additional Impression: Pneumonia ER Course I was called to intubate patient with respiratory failure both hypoxemic and hypercarbic. Patient unresponsive. See procedure notes. Ventilator settings ordered by me. Post x-ray as below. Blood gas on ventilator improved. Patient tolerated procedure well. Of note the patient was intubated December 22 and this note dictated December 23. Laboratory Tests Test 12/22/19 11:30 12/22/19 11:34 12/22/19 14:30 12/22/19 14:53 White Blood Count 8.1 K/UL (4.8-10.8) Red Blood Count 2.67 M/UL (4.20-5.40) L Hemoglobin 7.2 G/DL (12.0-16.0) L Hematocrit 24.4 % (37.0-47.0) L Mean Corpuscular Volume 91 FL (80-99) Mean Corpuscular Hemoglobin 27.1 PG (27.0-31.0) Mean Corpuscular Hemoglobin Concent 29.7 G/DL (32.0-36.0) L Red Cell Distribution Width 17.4 % (11.6-14.8) H Platelet Count 176 K/UL (150-450) Mean Platelet Volume 6.7 FL (6.5-10.1) Neutrophils (%) (Auto) % (45.0-75.0) Lymphocytes (%) (Auto) % (20.0-45.0) Monocytes (%) (Auto) % (1.0-10.0) Eosinophils (%) (Auto) % (0.0-3.0) Basophils (%) (Auto) % (0.0-2.0) Differential Total Cells Counted 100 Neutrophils % (Manual) 73 % (45-75) Lymphocytes % (Manual) 15 % (20-45) L Monocytes % (Manual) 12 % (1-10) H Eosinophils % (Manual) 0 % (0-3) Basophils % (Manual) 0 % (0-2) Band Neutrophils 0 % (0-8) Nucleated Red Blood Cells 1 /100 WBC Platelet Estimate Adequate Platelet Morphology Normal Hypochromasia 3+ Anisocytosis 1+ Sodium Level 150 MMOL/L (136-145) H Potassium Level 5.5 MMOL/L (3.5-5.1) H Chloride Level 114 MMOL/L (98-107) H Carbon Dioxide Level 32 MMOL/L (21-32) Anion Gap 5 mmol/L (5-15) Blood Urea Nitrogen 62 mg/dL (7-18) H Creatinine 1.7 MG/DL (0.55-1.30) H Estimated Glomerular Filtration Rate 30.0 mL/min (>60) Glucose Level 189 MG/DL (74-106) H Calcium Level 9.4 MG/DL (8.5-10.1) Arterial Blood pH 7.169 (7.350-7.450) 7.222 (7.350-7.450) 7.203 (7.350-7.450) Arterial Blood Partial Pressure CO2 83.3 mmHg (35.0-45.0) *H 64.8 mmHg (35.0-45.0) *H 74.2 mmHg (35.0-45.0) *H Arterial Blood Partial Pressure O2 52.0 mmHg (75.0-100.0) L 132.8 mmHg (75.0-100.0) H 97.9 mmHg (75.0-100.0) Arterial Blood HCO3 29.6 mmol/L (22.0-26.0) H 26.0 mmol/L (22.0-26.0) 28.5 mmol/L (22.0-26.0) H Arterial Blood Oxygen Saturation 79.6 % (95-100) *L 98.1 % (95-100) 96.8 % (95-100) Arterial Blood Base Excess 0.5 (-2-2) -1.6 (-2-2) 0.1 (-2-2) Eugene Test Positive Positive Positive Test 12/22/19 18:00 12/22/19 22:00 12/23/19 06:45 12/23/19 08:08 Arterial Blood pH 7.165 (7.350-7.450) 7.222 (7.350-7.450) 7.230 (7.350-7.450) Arterial Blood Partial Pressure CO2 90.7 mmHg (35.0-45.0) *H 64.8 mmHg (35.0-45.0) *H 70.1 mmHg (35.0-45.0) *H Arterial Blood Partial Pressure O2 126.4 mmHg (75.0-100.0) H 132.8 mmHg (75.0-100.0) H 102.5 mmHg (75.0-100.0) H Arterial Blood HCO3 32.0 mmol/L (22.0-26.0) H 26.0 mmol/L (22.0-26.0) 28.7 mmol/L (22.0-26.0) H Arterial Blood Oxygen Saturation 98.3 % (95-100) 98.1 % (95-100) 95.9 % (95-100) Arterial Blood Base Excess 2.5 (-2-2) H -1.6 (-2-2) 0.7 (-2-2) Eugene Test Positive Positive Positive White Blood Count 7.6 K/UL (4.8-10.8) Red Blood Count 2.66 M/UL (4.20-5.40) L Hemoglobin 7.3 G/DL (12.0-16.0) L Hematocrit 24.3 % (37.0-47.0) L Mean Corpuscular Volume 91 FL (80-99) Mean Corpuscular Hemoglobin 27.6 PG (27.0-31.0) Mean Corpuscular Hemoglobin Concent 30.2 G/DL (32.0-36.0) L Red Cell Distribution Width 16.5 % (11.6-14.8) H Platelet Count 176 K/UL (150-450) Mean Platelet Volume 7.1 FL (6.5-10.1) Neutrophils (%) (Auto) % (45.0-75.0) Lymphocytes (%) (Auto) % (20.0-45.0) Monocytes (%) (Auto) % (1.0-10.0) Eosinophils (%) (Auto) % (0.0-3.0) Basophils (%) (Auto) % (0.0-2.0) Differential Total Cells Counted 100 Neutrophils % (Manual) 73 % (45-75) Lymphocytes % (Manual) 15 % (20-45) L Monocytes % (Manual) 11 % (1-10) H Eosinophils % (Manual) 1 % (0-3) Basophils % (Manual) 0 % (0-2) Band Neutrophils 0 % (0-8) Nucleated Red Blood Cells 2 /100 WBC Platelet Estimate Adequate Platelet Morphology Normal Hypochromasia 3+ Anisocytosis 1+ Sodium Level 148 MMOL/L (136-145) H Potassium Level 5.3 MMOL/L (3.5-5.1) H Chloride Level 113 MMOL/L (98-107) H Carbon Dioxide Level 31 MMOL/L (21-32) Anion Gap 4 mmol/L (5-15) L Blood Urea Nitrogen 60 mg/dL (7-18) H Creatinine 1.8 MG/DL (0.55-1.30) H Estimated Glomerular Filtration Rate 28.0 mL/min (>60) Glucose Level 132 MG/DL (74-106) H Hemoglobin A1c 6.1 % (4.3-6.0) H Calcium Level 8.9 MG/DL (8.5-10.1) Phosphorus Level 5.0 MG/DL (2.5-4.9) H Magnesium Level 2.7 MG/DL (1.8-2.4) H Total Bilirubin 0.6 MG/DL (0.2-1.0) Aspartate Amino Transferase (AST) 18 U/L (15-37) Alanine Aminotransferase (ALT) 23 U/L (12-78) Alkaline Phosphatase 75 U/L (46-116) Total Protein 7.2 G/DL (6.4-8.2) Albumin 1.9 G/DL (3.4-5.0) L Globulin 5.3 g/dL Albumin/Globulin Ratio 0.4 (1.0-2.7) L Test 12/23/19 12:37 12/23/19 18:00 12/23/19 22:12 POC Whole Blood Glucose Pending Arterial Blood pH 6.935 (7.350-7.450) 7.343 (7.350-7.450) Arterial Blood Partial Pressure CO2 166.2 mmHg (35.0-45.0) *H 54.5 mmHg (35.0-45.0) H Arterial Blood Partial Pressure O2 73.9 mmHg (75.0-100.0) L 116.6 mmHg (75.0-100.0) H Arterial Blood HCO3 34.5 mmol/L (22.0-26.0) H 28.9 mmol/L (22.0-26.0) H Arterial Blood Oxygen Saturation 88.1 % (95-100) *L 97.3 % (95-100) Arterial Blood Base Excess 0.4 (-2-2) 2.9 (-2-2) H Eugene Test Positive Positive Microbiology Date/Time Source Procedure Growth Status 12/23/19 23:50 Nasopharynx SARS-CoV-2 RdRp Gene Assay - Final Complete Rhythm Strip Diag. Results EP Interpretation: yes Rhythm: no PVC's, no ectopy, other - ST Chest X-Ray Diagnostic Results Chest X-Ray Diagnostic Results : Chest X-Ray Ordered: Yes # of Views/Limited/Complete: 1 View Indication: Other EP Interpretation: Yes Interpretation: no pneumothorax, other - bilateral infiltrates and scarring , pleural effusions - ET good placement Impression: Other Electronically Signed by: Electronically signed by Jerome Davis MD Last Vital Signs Date Time Temp Pulse Resp B/P (MAP) Pulse Ox O2 Delivery O2 Flow Rate FiO2 12/24/19 00:18 16 106/39 Mechanical Ventilator 55 12/23/19 23:36 82 12/23/19 19:47 93 12/23/19 16:00 98.0 12/22/19 09:00 12.0 Status: improved Disposition: ADMITTED INPATIENT Condition: Critical Referrals: NOT CHOSEN ALSIIA/,REFERRING (PCP) Jerome Davis MD Dec 24, 2019 01:15
--- NOTE | 2019-12-24 02:55 | NUR ---
NURSE NOTES: MD Coronel called back. update on patient condition provided. Aware of MD Keen orders for positive COVID. No new orders at this time.
--- NOTE | 2019-12-24 04:00 | NUR ---
Nurse Note: Pt tolerating treatment plan. Monitoring BP; MAP >60. Fentanyl resumed; pt tolerating 30mcg. Lockett cath patent. All safety measures met; will continue to monitor.
[2019-12-24] MEDS: Meropenem 500 MG in NS 55 ML IVPB SCH ×2 (04:15→16:56)
[2019-12-24] MEDS: dilTIAZem HCl 90mg tab NG SCH ×3 (06:26→18:32)
[2019-12-24] MEDS: NovoLOG Insulin Flexpen SUBQ SCH ×4 (06:30→20:45)
--- NOTE | 2019-12-24 06:56 | NUR ---
Nurse Note: Pt turned and cleaned. Pt lethargic, tachypneic. Responds to pain. Pt intubated; 7.5 ETT, 24 at gum, vent setting at AC 16, 600 TV, 55% O2, Peep 5. RT NGT noted; low int suction. SLIV noted on RT upper arm; patent. RT AC IV infusing fluids. IV RT wrist infusing fentanyl. Bilateral soft wrist restraints noted; skin intact on inspection. Pt has bilateral knee hematomas. Lockett cath intact, 1000cc urine output. Isolation precautions continued per orders. Pending thoracentesis. All safety measures met; will endorse care to NOEL Thompson.
--- NOTE | 2019-12-24 07:19 | NUR ---
NURSE NOTES: Received patient from Poonam COHEN. Patient is sedated RASS -2. A. Fib on the heart monitor, HR 98-109. Receiving oxygen via ET tube 7.5 23cm at the gum line, vent settings: AC 16, TV 600, FiO2 55%, PEEP 5. Right Nares NGT is intact and clamped. IV site is Right Upper chest 24g and AC 22g both patent and intact, Right Wrist 22g is intact and receiving Fentanyl at 30mcg/hr. Lockett catheter is intact and draining. Bed is locked, placed in lowest position, side rails up x3, bed alarm on, head of bed elevated. Will continue to monitor.
[2019-12-24 07:32] LABS: HEMATOCRIT 20.3 % (37.0-47.0); MEAN CORPUSCULAR VOLUME 89 FL (80-99); PLATELET COUNT 103 K/UL (150-450); RED BLOOD COUNT 2.27 M/UL (4.20-5.40); RED CELL DISTRIBUTION WIDTH 16.8 % (11.6-14.8); WHITE BLOOD COUNT 7.3 K/UL (4.8-10.8)
[2019-12-24 07:41] LABS: ALANINE AMINOTRANSFERASE 24 U/L (12-78); ALBUMIN 1.9 G/DL (3.4-5.0); ALKALINE PHOSPHATASE 68 U/L (46-116); ASPARTATE AMINO TRANSFERASE 18 U/L (15-37); BILIRUBIN,DIRECT 0.4 MG/DL (0.0-0.3); BILIRUBIN,TOTAL 0.7 MG/DL (0.2-1.0)
[2019-12-24 07:45] LABS: HEMOGLOBIN 6.2 G/DL (12.0-16.0)
[2019-12-24 08:00] LABS: ALBUMIN 1.9 G/DL (3.4-5.0); ALBUMIN/GLOBULIN RATIO 0.4 (1.0-2.7); BILIRUBIN,TOTAL 0.7 MG/DL (0.2-1.0); CALCIUM 8.7 MG/DL (8.5-10.1); CREATININE 2.1 MG/DL (0.55-1.30); POTASSIUM 5.3 MMOL/L (3.5-5.1)
[2019-12-24 08:07] LABS: INR 1.1 (0.9-1.1)
[2019-12-24] MEDS: Pantoprazole Inj IVP SCH ×2 (08:19→20:29)
[2019-12-24] MEDS: Metoprolol Tartrate 50mg tab NG SCH ×2 (08:19→21:00)
[2019-12-24] MEDS: Bacitracin Oint 15gm Tube TOPIC SCH ×2 (08:20→18:32)
[2019-12-24] MEDS: dexAMETHasone 10mg/ml Inj IV SCH (08:20)
[2019-12-24] MEDS: Micafungin 100 MG in NS 110 ML IVPB SCH (08:21)
[2019-12-24] MEDS: Polymyxin B Sulfate 500,000 units in D5W 550ml IV SCH ×2 (08:21→20:29)
[2019-12-24] MEDS: Enoxaparin 60mg Inj SUBQ SCH (08:22)
--- NOTE | 2019-12-24 09:48 | NUR ---
NURSE NOTES: Medications given as prescribed, no adverse reactions noted. Patient's temperature read 100.6 degrees Fahrenheit via axillary. Prescribed Tylenol given and ice packs placed on patient. She remains sedated, RASS -2, easily awoken by name and holds eye contact for less than 10 seconds.
--- NOTE | 2019-12-24 09:54 | Pulmonolgy Critical Care Note ---
Alexys Bowenet MERCHANDISE COLLECTOR 12/24/19 0954: Critical Care - Asmt/Plan Assessment/Plan: ASSESSMENT acute hypoxemic hypercapnic resp failure, requiring intubation 12/22 COVID 19 PNA sepsis fungemia UTI with E coli ESBL UTI VRE possible aspiration PNA COPD Bronchospasm Atrial fibrillation with rapid ventricular response Congestive heart failure Acute renal failure on CKD Severe anemia Probable GI bleeding Status post ground fall Tobacco dependency Morbid obesity probably GARY Homeless R knee edema and hematoma, likely sprain /strain post fall PLAN OF CARE ICU intubated 12/22 ABG stable titrate FiO2 to keep sat above 92% fup with CXR and ABG MDI Albuterol in line with vent sedation with Fentanyl gtt DVT prophylaxis with Lovenox prior Venous Duplex BLE -NGT COVID 19 by PCR 12/22 positive isolation started on steroids Decadron 6 mg IV IL 6 pending ,CRP 15.6, ferritin 769, fup with inflammatory markers on diuresis with Lasix monitor volumes closely rate control- per cardio recs: monitor volumes pro BNP trending down ECHO with pEF no evidence of WMA GI prophylaxis with PPI bid s/p Venofer x 2 transfuse 1 u PRBC today monitor HH with goal to keep Hgb >7 GI procedure when stable renal US no hydro, BL nonobstructive stones s/p IV hydration monitor renal parameters, lytes , e/lyte management as per nephro recs UCX 12/11 + E coli ESBL, BCX 12/16 1/2 + yeast, fup with yeast ID, ? source BCX 12/17 NGTD UCX 12/16 VRE SCX 12/19 Staph aureus, ACB MDR now on meropenem , micafungin , Polymyxin and Zyvox -as per ID recs , prior X ray R knee given fall 12/15 , large hematoma, swelling-no fx or dislocation ice R knee and elevate CT head no acute IC pathology fall precautions prior declined Nicotine patch discussion on weight loss if receptive - not at this time; anxious and wants to go home pain management anxiolytic prn SW consult for placement case discussed and evaluated by supervising physician ivy mccarty for a consult! Critical Care - Objective Last 24 Hour Vital Signs Date Time Temp Pulse Resp B/P (MAP) Pulse Ox O2 Delivery O2 Flow Rate FiO2 12/24/19 08:19 105 118/48 12/24/19 07:40 100 Mechanical Ventilator 100 12/24/19 07:37 89 16 55 12/24/19 07:05 16 103/64 Mechanical Ventilator 40 12/24/19 07:00 107 18 119/54 (75) 99 12/24/19 06:26 103 118/70 12/24/19 06:05 18 121/68 Mechanical Ventilator 55 12/24/19 06:00 106 18 118/70 (86) 100 12/24/19 05:05 17 121/68 Mechanical Ventilator 55 12/24/19 05:00 100.7 103 19 121/68 (85) 83 12/24/19 04:05 16 110/67 Mechanical Ventilator 55 12/24/19 04:00 98 18 110/67 (81) 100 12/24/19 04:00 Mechanical Ventilator 12/24/19 04:00 104 12/24/19 03:05 16 107/69 Mechanical Ventilator 55 12/24/19 03:00 100 16 55 12/24/19 03:00 87 19 94/52 (66) 99 12/24/19 02:45 88 17 92/54 (67) 100 12/24/19 02:30 84 16 105/49 (67) 99 12/24/19 02:15 84 15 104/59 (74) 100 12/24/19 02:05 18 102/49 Mechanical Ventilator 55 12/24/19 02:00 85 17 102/49 (66) 99 12/24/19 01:50 16 101/82 Mechanical Ventilator 55 12/24/19 01:45 86 18 107/54 (71) 97 12/24/19 01:35 17 107/54 Mechanical Ventilator 55 12/24/19 01:30 80 18 110/61 (77) 97 12/24/19 01:20 18 115/100 Mechanical Ventilator 55 12/24/19 01:15 75 16 101/82 (88) 98 12/24/19 01:00 58 17 83/67 (72) 99 12/24/19 00:45 58 15 76/35 (49) 99 12/24/19 00:30 53 15 76/41 (53) 100 12/24/19 00:18 16 106/39 Mechanical Ventilator 55 12/24/19 00:15 61 15 106/39 (61) 100 12/24/19 00:10 64 14 87/43 (58) 100 12/24/19 00:03 16 105/57 Mechanical Ventilator 55 12/24/19 00:00 97.0 76 16 105/57 (73) 100 12/24/19 00:00 Mechanical Ventilator 12/24/19 00:00 72 12/23/19 23:48 17 108/64 Mechanical Ventilator 55 12/23/19 23:45 80 16 106/52 (70) 100 12/23/19 23:36 82 110/72 12/23/19 23:33 18 119/81 Mechanical Ventilator 55 12/23/19 23:30 81 16 108/48 (68) 100 12/23/19 23:18 17 142/66 Mechanical Ventilator 55 12/23/19 23:15 85 17 105/58 (74) 100 12/23/19 23:05 104 16 55 12/23/19 23:03 19 108/49 Mechanical Ventilator 55 12/23/19 23:00 77 20 108/64 (79) 99 12/23/19 22:48 28 124/53 Mechanical Ventilator 55 12/23/19 22:45 88 18 114/78 (90) 100 12/23/19 22:33 17 142/66 Mechanical Ventilator 55 12/23/19 22:30 90 16 119/81 (94) 100 12/23/19 22:18 23 109/51 Mechanical Ventilator 55 12/23/19 22:15 92 17 142/66 (91) 100 12/23/19 22:08 76 115/68 12/23/19 22:00 80 15 109/51 (70) 97 12/23/19 21:35 86 16 55 12/23/19 21:30 79 16 115/58 (77) 100 12/23/19 21:00 73 28 114/49 (70) 99 12/23/19 20:00 73 12/23/19 20:00 Bi-pap 12/23/19 20:00 60 12/23/19 20:00 97.7 81 29 136/62 (86) 94 12/23/19 19:47 82 16 93 60 12/23/19 19:46 60 Bi-Pap 93 12/23/19 19:00 81 30 145/53 (83) 95 12/23/19 18:23 85 147/70 12/23/19 18:00 89 28 147/70 (95) 92 12/23/19 17:00 93 29 152/70 (97) 94 12/23/19 16:00 60 12/23/19 16:00 98.0 94 29 151/61 (91) 96 12/23/19 16:00 93 12/23/19 16:00 Bi-pap 12/23/19 15:00 100 31 147/65 (92) 97 12/23/19 14:45 97 16 97 60 12/23/19 14:23 99.6 12/23/19 14:00 101 28 133/67 (89) 95 12/23/19 13:00 100.3 100 26 136/56 (82) 95 12/23/19 12:33 110 158/67 12/23/19 12:00 108 23 162/78 (106) 95 12/23/19 12:00 Bi-pap 12/23/19 12:00 96 12/23/19 12:00 60 12/23/19 11:28 101 35 100 40 12/23/19 11:00 102 32 144/68 (93) 95 12/23/19 10:00 93 30 139/77 (97) 95 Objective: General Appearance: morbidly obese , sedated, on vent AC 600-16-100% Lines, tubes and drains: peripheral HEENT: normocephalic, atraumatic, anicteric, NGT in , OP with ET Neck: non-tender Respiratory/Chest: chest wall non-tender, no accessory muscle use, decreased breath sounds; Cardiovascular/Chest: irregularly irregular - A fib , tachy, distant heart sounds Abdomen: normal bowel sounds, non tender , obese, soft Extremities: no calf tenderness, moderate edema - +2 BLE, R knee with large hematoma, edema, Skin Exam: warm/dry, multiple tattoos Neurologic: sedated Musculoskeletal: normal muscle bulk Micro: Microbiology Date/Time Source Procedure Growth Status 12/23/19 23:50 Nasopharynx SARS-CoV-2 RdRp Gene Assay - Final Complete Accucheck: 98 Critical Care - Subjective ROS Limited/Unobtainable: Yes Interval Events: intubated last night due to severe hypercapnic resp failure on 600-16-100% FiO2 thsi am ABG stable on Fentanyl gtt fever 10,7m tachycardic repeated COVID 19 by PCR positive isolation started on steroids Hg down to 6.2 apparently had coffee ground emesis yesterday seen by GI started on PPI Condition: critical EKG Rhythm: Sinus Tachycardia FI02: 100 Vent Support Breath Rate: 16 Vent Support Mode: AC Vent Tidal Volume: 600 Sputum Amount: Moderate PEEP: 5.0 PIP: 32 Drips: Fentanyl gtt 30 mg/hr Tube Feeding Amount: 0 I&O: Intake and Output 12/23/19 12/24/19 19:00 07:00 Intake Total 918 ml Output Total 690 ml 1180 ml Balance -690 ml -262 ml IV Total 918 ml Output Urine Total 690 ml 1180 ml ET-Tube: 7.5 ET Position: 24 Colt Keen MD 12/24/19 1119: Critical Care - Asmt/Plan Assessment/Plan: Patient seen and examined with MERCHANDISE COLLECTOR and I agree with the above formulated assessment and plan. * Development of worsening respiratory acidosis, patient intubated with rapid improvement in ABG * COVID positive, started on decadron 6 mg daily x 10 days, remdesivir x 5 days planned (lypholyzed if available, otherwise monitor renal function closely) * Diuretics held, CXR looks improved pulmonary edema * lasix on hold * cont abx * Overall minimal vent settings, will assess for SBT tomorrow Time Spent (Minutes): other - 80cc Luz Bowen NP Dec 24, 2019 09:54 Colt Keen MD Dec 24, 2019 11:19
[2019-12-24] MEDS: Acetaminophen 650mg/20.3ml NG PRN (10:10)
[2019-12-24] MEDS ORDERED: IV Preparation Fee MISC PRN ×2 (10:15→14:00)
[2019-12-24] MEDS ORDERED: Albuterol 90mcg Inhaler 8gm INH PRN (10:30)
[2019-12-24] MEDS ORDERED: Remdesivir Fact Sheet MISC PRN (10:30)
--- NOTE | 2019-12-24 10:30 | NUR ---
7 ASSESSMENT & RECOMMENDATIONS SEE CARE ACTIVITY FOR COMPLETE ASSESSMENT DAILY ESTIMATED NEEDS: Needs based on Obesity, Cardiac, DM, NATALIE, Critical Care/ 80.5kg abw 22-25kg/IBW (59kg) kcals/kg 0759-2757 total kcals 0.8-1.0 (increase w/ renal improvement) g protein/kg 64-80 g total protein 20-25 mL/kg 4505-6907 total fluid mLs NUTRITION DIAGNOSIS: 1) Class III Obesity R/T lifestyle factors? excessive energy intake as evidenced by pt w/ BMI >50, @ 245% IBW. 2) Altered nutrition related lab values R/T diabetes, altered lipid metabolism, cardiac hx, NATALIE as evidenced by A1C of 7.1, elev triglyceride 239, elev BNP 4671, elev creat (1.7->4.3 -> 2.1, elev BUN (92 -> 72), elev K (5.4, 5.2 -> wnl->5.3), 3) Swallowing difficulty R/T decreased cognitive fxn, respiratory status as evidenced by s/p NGT insertion (12/17), s/p worsening respiratoy status, Covid-19 positive, orally intubated (12/22), NPO. CURRENT TF:NPO ENTERAL NUTRITION RECOMMENDATIONS: Nepro @ 33ml/hr x 24 hrs to provide 792ml, 1425kcal, 64g prot, 575ml free water * When medically appropriate to feed, resume Nepro -> Rec goal rate of 33ml/hr x 24 hrs * HOB over 30 degrees/ water flush per MD ADDITIONAL RECOMMENDATIONS: 1) Calibrated bedscale wt: fluctuating daily wts 2) Monitor renal fxn and lytes: creat now trending back down, K elev -> check phos 3) Wound healing: add Nephrovite x 1, Vit C 250mg QD, Armand BID via NGT 4) Record BMs: not updated since 12/14 5) Monitor BGs closely w/ Decadron: NISS now added .
--- NOTE | 2019-12-24 10:47 | Diagnostic Imaging Report ---
Procedure: XRAY Chest 1v Reason for study: Shortness of breath Comparison films: 12/23/2019. FINDINGS: Endotracheal tube and NG tube remain in place. Bilateral hazy alveolar densities and [id number] left effusion unchanged. Cardiomegaly and small right effusion also noted. The bony thorax appear unremarkable. IMPRESSION: NO SIGNIFICANT CHANGE COMPARED TO PREVIOUS EXAM.
--- NOTE | 2019-12-24 10:53 | NUR ---
NURSE NOTES: Photo Equipment Technician and RN attempted to draw blood from patient for labs, both unable to draw blood as patient is a hard stick. Reassessed patient's temperature and it read 100.3 degrees Fahrenheit. Ice packs remain on patient.
--- NOTE | 2019-12-24 11:09 | NUR ---
NURSE NOTES: Received call from [facility] from lab, patient has blood sample from previous draw.
--- NOTE | 2019-12-24 11:18 | NUR ---
NURSE NOTES: Patient seen and assessed by Dr. Keen.
--- NOTE | 2019-12-24 12:04 | NUR ---
NURSE NOTES: Patient seen and assessed by Dr. Watson.
--- NOTE | 2019-12-24 12:07 | NUR ---
ST NOTE APPLICATION DEVELOPMENT PROJECT MANAGER Bedside Swallow Evaluation order received on 12/17/[address] Victoria. Pt requiring higher level of care and transferred to ICU, now intubated. Therefore, not appropriate for APPLICATION DEVELOPMENT PROJECT MANAGER swallow evaluation. APPLICATION DEVELOPMENT PROJECT MANAGER plans to cancel orders. Please re-order when Pt is appropriate. Thank you for this referral.
--- NOTE | 2019-12-24 12:08 | General Progress Note ---
Assessment/Plan Problem List: (1) CKD (chronic kidney disease) stage 3, GFR 30-59 ml/min ICD Codes: N18.3 - Chronic kidney disease, stage 3 (moderate) SNOMED: 937682597 (2) COPD (chronic obstructive pulmonary disease) ICD Codes: J44.9 - Chronic obstructive pulmonary disease, unspecified SNOMED: 86679668 (3) Smoker ICD Codes: F17.200 - Nicotine dependence, unspecified, uncomplicated SNOMED: 66506842 (4) GERD (gastroesophageal reflux disease) ICD Codes: K21.9 - Gastro-esophageal reflux disease without esophagitis SNOMED: 817649031 (5) Atrial fibrillation with RVR ICD Codes: I48.91 - Unspecified atrial fibrillation SNOMED: 051998103475380 Status: stable Assessment/Plan: s/p ngt placement ppi bid fu H&H monitor labs bowel regimen pending possible thoracentesis NGTF Subjective ROS Limited/Unobtainable: No Allergies: Coded Allergies: ERYTHROMYCIN BASE (Verified Allergy, Severe, 12/12/19) HALOPERIDOL (Verified Allergy, Unknown, 12/12/19) VANCOMYCIN (Unverified Adverse Reaction, Intermediate, Shortness of Breath , 12/12/19) Objective Last 24 Hour Vital Signs Date Time Temp Pulse Resp B/P (MAP) Pulse Ox O2 Delivery O2 Flow Rate FiO2 12/24/19 12:00 24 93/74 Endotracheal Tube 40 12/24/19 12:00 99.3 99 24 93/74 (80) 91 12/24/19 11:45 23 126/66 Endotracheal Tube 40 12/24/19 11:40 117 126/57 12/24/19 11:30 17 125/57 Endotracheal Tube 40 12/24/19 11:15 20 111/67 Endotracheal Tube 40 12/24/19 11:00 24 92/51 Endotracheal Tube 40 12/24/19 11:00 100.3 111 22 92/51 (65) 94 12/24/19 10:52 107 21 97 Mechanical Ventilator 40 12/24/19 10:49 106 19 40 12/24/19 10:40 100.3 12/24/19 10:05 19 92/78 Endotracheal Tube 55 12/24/19 10:00 94 20 94/60 (71) 96 12/24/19 09:05 13 91/46 Endotracheal Tube 55 12/24/19 09:00 92 15 98/45 (62) 98 12/24/19 08:19 105 118/48 12/24/19 08:05 14 118/48 Endotracheal Tube 55 12/24/19 08:00 100.6 105 20 115/50 (71) 100 12/24/19 08:00 Mechanical Ventilator 12/24/19 07:47 108 12/24/19 07:40 100 Mechanical Ventilator 100 12/24/19 07:37 89 16 55 12/24/19 07:05 16 103/64 Mechanical Ventilator 40 12/24/19 07:00 107 18 119/54 (75) 99 12/24/19 06:26 103 118/70 12/24/19 06:05 18 121/68 Mechanical Ventilator 55 12/24/19 06:00 106 18 118/70 (86) 100 12/24/19 05:05 17 121/68 Mechanical Ventilator 55 12/24/19 05:00 100.7 103 19 121/68 (85) 83 12/24/19 04:05 16 110/67 Mechanical Ventilator 55 12/24/19 04:00 98 18 110/67 (81) 100 12/24/19 04:00 Mechanical Ventilator 12/24/19 04:00 104 12/24/19 03:05 16 107/69 Mechanical Ventilator 55 12/24/19 03:00 100 16 55 12/24/19 03:00 87 19 94/52 (66) 99 12/24/19 02:45 88 17 92/54 (67) 100 12/24/19 02:30 84 16 105/49 (67) 99 12/24/19 02:15 84 15 104/59 (74) 100 12/24/19 02:05 18 102/49 Mechanical Ventilator 55 12/24/19 02:00 85 17 102/49 (66) 99 12/24/19 01:50 16 101/82 Mechanical Ventilator 55 12/24/19 01:45 86 18 107/54 (71) 97 12/24/19 01:35 17 107/54 Mechanical Ventilator 55 12/24/19 01:30 80 18 110/61 (77) 97 12/24/19 01:20 18 115/100 Mechanical Ventilator 55 12/24/19 01:15 75 16 101/82 (88) 98 12/24/19 01:00 58 17 83/67 (72) 99 12/24/19 00:45 58 15 76/35 (49) 99 12/24/19 00:30 53 15 76/41 (53) 100 12/24/19 00:18 16 106/39 Mechanical Ventilator 55 12/24/19 00:15 61 15 106/39 (61) 100 12/24/19 00:10 64 14 87/43 (58) 100 12/24/19 00:03 16 105/57 Mechanical Ventilator 55 12/24/19 00:00 97.0 76 16 105/57 (73) 100 12/24/19 00:00 Mechanical Ventilator 12/24/19 00:00 72 12/23/19 23:48 17 108/64 Mechanical Ventilator 55 12/23/19 23:45 80 16 106/52 (70) 100 12/23/19 23:36 82 110/72 12/23/19 23:33 18 119/81 Mechanical Ventilator 55 12/23/19 23:30 81 16 108/48 (68) 100 12/23/19 23:18 17 142/66 Mechanical Ventilator 55 12/23/19 23:15 85 17 105/58 (74) 100 12/23/19 23:05 104 16 55 12/23/19 23:03 19 108/49 Mechanical Ventilator 55 12/23/19 23:00 77 20 108/64 (79) 99 12/23/19 22:48 28 124/53 Mechanical Ventilator 55 12/23/19 22:45 88 18 114/78 (90) 100 12/23/19 22:33 17 142/66 Mechanical Ventilator 55 12/23/19 22:30 90 16 119/81 (94) 100 12/23/19 22:18 23 109/51 Mechanical Ventilator 55 12/23/19 22:15 92 17 142/66 (91) 100 12/23/19 22:08 76 115/68 12/23/19 22:00 80 15 109/51 (70) 97 12/23/19 21:35 86 16 55 12/23/19 21:30 79 16 115/58 (77) 100 12/23/19 21:00 73 28 114/49 (70) 99 12/23/19 20:00 73 12/23/19 20:00 Bi-pap 12/23/19 20:00 60 12/23/19 20:00 97.7 81 29 136/62 (86) 94 12/23/19 19:47 82 16 93 60 12/23/19 19:46 60 Bi-Pap 93 12/23/19 19:00 81 30 145/53 (83) 95 12/23/19 18:23 85 147/70 12/23/19 18:00 89 28 147/70 (95) 92 12/23/19 17:00 93 29 152/70 (97) 94 12/23/19 16:00 60 12/23/19 16:00 98.0 94 29 151/61 (91) 96 12/23/19 16:00 93 12/23/19 16:00 Bi-pap 12/23/19 15:00 100 31 147/65 (92) 97 12/23/19 14:45 97 16 97 60 12/23/19 14:23 99.6 12/23/19 14:00 101 28 133/67 (89) 95 12/23/19 13:00 100.3 100 26 136/56 (82) 95 12/23/19 12:33 110 158/67 Intake and Output 12/23/19 12/24/19 19:00 07:00 Intake Total 918 ml Output Total 690 ml 1180 ml Balance -690 ml -262 ml IV Total 918 ml Output Urine Total 690 ml 1180 ml Laboratory Tests 12/23/19 12:37: POC Whole Blood Glucose [Pending] 12/23/19 18:00: Arterial Blood pH 6.935*L, Arterial Blood Partial Pressure CO2 166.2*H, Arterial Blood Partial Pressure O2 73.9L, Arterial Blood HCO3 34.5H, Arterial Blood Oxygen Saturation 88.1*L, Arterial Blood Base Excess 0.4, Eugene Test Positive 12/23/19 22:12: Arterial Blood pH 7.343L, Arterial Blood Partial Pressure CO2 54.5H, Arterial Blood Partial Pressure O2 116.6H, Arterial Blood HCO3 28.9H, Arterial Blood Oxygen Saturation 97.3, Arterial Blood Base Excess 2.9H, Eugene Test Positive 12/24/19 06:17: White Blood Count 7.3, Red Blood Count 2.27L, Hemoglobin 6.2*L, Hematocrit 20.3L , Mean Corpuscular Volume 89, Mean Corpuscular Hemoglobin 27.3, Mean Corpuscular Hemoglobin Concent 30.6L, Red Cell Distribution Width 16.8H, Platelet Count 103L, Mean Platelet Volume 6.8, Neutrophils (%) (Auto) , Lymphocytes (%) (Auto) , Monocytes (%) (Auto) , Eosinophils (%) (Auto) , Basophils (%) (Auto) , Differential Total Cells Counted 100, Neutrophils % ( Manual) 76H, Lymphocytes % (Manual) 20, Monocytes % (Manual) 4, Eosinophils % ( Manual) 0, Basophils % (Manual) 0, Band Neutrophils 0, Nucleated Red Blood Cells 3, Platelet Estimate DecreasedL, Platelet Morphology Normal, Hypochromasia 4+, Anisocytosis 1+, Prothrombin Time 11.8H, Prothromb Time International Ratio 1.1, Activated Partial Thromboplast Time 21L, Sodium Level 147H, Potassium Level 5.3H, Chloride Level 112H, Carbon Dioxide Level 31, Anion Gap 4L, Blood Urea Nitrogen 72H, Creatinine 2.1H, Estimat Glomerular Filtration Rate 23.5, Glucose Level 84, Calcium Level 8.7, Ferritin 729H, Total Bilirubin 0.7, Direct Bilirubin 0.4H, Aspartate Amino Transf (AST/SGOT) 18, Alanine Aminotransferase (ALT/SGPT) 24, Alkaline Phosphatase 68, Troponin I 0.001, C- Reactive Protein, Quantitative 15.6H, Total Protein 6.3L, Albumin 1.9L, Globulin 5.1, Albumin/Globulin Ratio 0.4L, Triglycerides Level 107 12/24/19 07:37: Arterial Blood pH 7.426, Arterial Blood Partial Pressure CO2 47.8H, Arterial Blood Partial Pressure O2 81.6, Arterial Blood HCO3 30.7H, Arterial Blood Oxygen Saturation 95.0, Arterial Blood Base Excess 5.8H, Eugene Test Positive Height (Feet): 5 Height (Inches): 6.00 Weight (Pounds): 298 General Appearance: lethargic EENT: normal ENT inspection Neck: supple Cardiovascular: normal rate Respiratory/Chest: decreased breath sounds Abdomen: normal bowel sounds, non tender, soft Extremities: non-tender Mervin Victoria MD Dec 24, 2019 12:08
--- NOTE | 2019-12-24 12:15 | Infectious Diseases Prog Note ---
Assessment/Plan Assessment/Plan ASSESSMENT AND PLAN: 1. hx esbl e.coli uti/pyelonephritis, sepsis, leukocytosis, fevers mrsa and vre colonization, NATALIE, respiratory distress/failure Fungemia - + yeast in blood staph aureus pna/acinetobacter pna VRE uti covid-19 testing + - zyvox, meropenem, polymyxin, micafungin - remdesivir and dexamethasone started - monitor labs and chest x-ray, f/u on cultures - icu care, supportive care 2. Chronic kidney failure, acute renal failure. 3. COPD. 4. Pulmonary followup. 5. Renal followup. 6. History of falls. 7. Atrial fibrillation. Cardiology followup. 8. Obesity. 9. Gait disorder. 10. Schizophrenia. 11. Homeless. 12. Allergic to erythromycin, haloperidol, and vancomycin. 13. Social history is negative. 14. Family history is noncontributory. 15. MAR is noted. 16. Case discussed with RN. 17. Continue treatment per Dr. Dumont and consultants. Subjective Constitutional: Reports: other - on vent, no pressors ; Denies: fever HEENT: Reports: congestion Respiratory: Reports: shortness of breath Gastrointestinal/Abdominal: Denies: nausea, vomiting, diarrhea Genitourinary: Reports: other - + trivedi Allergies: Coded Allergies: ERYTHROMYCIN BASE (Verified Allergy, Severe, 12/12/19) HALOPERIDOL (Verified Allergy, Unknown, 12/12/19) VANCOMYCIN (Unverified Adverse Reaction, Intermediate, Shortness of Breath , 12/12/19) Objective Last 24 Hour Vital Signs Date Time Temp Pulse Resp B/P (MAP) Pulse Ox O2 Delivery O2 Flow Rate FiO2 12/24/19 12:00 24 93/74 Endotracheal Tube 40 12/24/19 12:00 99.3 99 24 93/74 (80) 91 12/24/19 11:45 23 126/66 Endotracheal Tube 40 12/24/19 11:40 117 126/57 12/24/19 11:30 17 125/57 Endotracheal Tube 40 12/24/19 11:15 20 111/67 Endotracheal Tube 40 12/24/19 11:00 24 92/51 Endotracheal Tube 40 12/24/19 11:00 100.3 111 22 92/51 (65) 94 12/24/19 10:52 107 21 97 Mechanical Ventilator 40 12/24/19 10:49 106 19 40 12/24/19 10:40 100.3 12/24/19 10:05 19 92/78 Endotracheal Tube 55 12/24/19 10:00 94 20 94/60 (71) 96 12/24/19 09:05 13 91/46 Endotracheal Tube 55 12/24/19 09:00 92 15 98/45 (62) 98 12/24/19 08:19 105 118/48 12/24/19 08:05 14 118/48 Endotracheal Tube 55 12/24/19 08:00 100.6 105 20 115/50 (71) 100 12/24/19 08:00 Mechanical Ventilator 12/24/19 07:47 108 12/24/19 07:40 100 Mechanical Ventilator 100 12/24/19 07:37 89 16 55 12/24/19 07:05 16 103/64 Mechanical Ventilator 40 12/24/19 07:00 107 18 119/54 (75) 99 12/24/19 06:26 103 118/70 12/24/19 06:05 18 121/68 Mechanical Ventilator 55 12/24/19 06:00 106 18 118/70 (86) 100 12/24/19 05:05 17 121/68 Mechanical Ventilator 55 12/24/19 05:00 100.7 103 19 121/68 (85) 83 12/24/19 04:05 16 110/67 Mechanical Ventilator 55 12/24/19 04:00 98 18 110/67 (81) 100 12/24/19 04:00 Mechanical Ventilator 12/24/19 04:00 104 12/24/19 03:05 16 107/69 Mechanical Ventilator 55 12/24/19 03:00 100 16 55 12/24/19 03:00 87 19 94/52 (66) 99 12/24/19 02:45 88 17 92/54 (67) 100 12/24/19 02:30 84 16 105/49 (67) 99 12/24/19 02:15 84 15 104/59 (74) 100 12/24/19 02:05 18 102/49 Mechanical Ventilator 55 12/24/19 02:00 85 17 102/49 (66) 99 12/24/19 01:50 16 101/82 Mechanical Ventilator 55 12/24/19 01:45 86 18 107/54 (71) 97 12/24/19 01:35 17 107/54 Mechanical Ventilator 55 12/24/19 01:30 80 18 110/61 (77) 97 12/24/19 01:20 18 115/100 Mechanical Ventilator 55 12/24/19 01:15 75 16 101/82 (88) 98 12/24/19 01:00 58 17 83/67 (72) 99 12/24/19 00:45 58 15 76/35 (49) 99 12/24/19 00:30 53 15 76/41 (53) 100 12/24/19 00:18 16 106/39 Mechanical Ventilator 55 12/24/19 00:15 61 15 106/39 (61) 100 12/24/19 00:10 64 14 87/43 (58) 100 12/24/19 00:03 16 105/57 Mechanical Ventilator 55 12/24/19 00:00 97.0 76 16 105/57 (73) 100 12/24/19 00:00 Mechanical Ventilator 12/24/19 00:00 72 12/23/19 23:48 17 108/64 Mechanical Ventilator 55 12/23/19 23:45 80 16 106/52 (70) 100 12/23/19 23:36 82 110/72 12/23/19 23:33 18 119/81 Mechanical Ventilator 55 12/23/19 23:30 81 16 108/48 (68) 100 12/23/19 23:18 17 142/66 Mechanical Ventilator 55 12/23/19 23:15 85 17 105/58 (74) 100 12/23/19 23:05 104 16 55 12/23/19 23:03 19 108/49 Mechanical Ventilator 55 12/23/19 23:00 77 20 108/64 (79) 99 12/23/19 22:48 28 124/53 Mechanical Ventilator 55 12/23/19 22:45 88 18 114/78 (90) 100 12/23/19 22:33 17 142/66 Mechanical Ventilator 55 12/23/19 22:30 90 16 119/81 (94) 100 12/23/19 22:18 23 109/51 Mechanical Ventilator 55 12/23/19 22:15 92 17 142/66 (91) 100 12/23/19 22:08 76 115/68 12/23/19 22:00 80 15 109/51 (70) 97 12/23/19 21:35 86 16 55 12/23/19 21:30 79 16 115/58 (77) 100 12/23/19 21:00 73 28 114/49 (70) 99 12/23/19 20:00 73 12/23/19 20:00 Bi-pap 12/23/19 20:00 60 12/23/19 20:00 97.7 81 29 136/62 (86) 94 12/23/19 19:47 82 16 93 60 12/23/19 19:46 60 Bi-Pap 93 12/23/19 19:00 81 30 145/53 (83) 95 12/23/19 18:23 85 147/70 12/23/19 18:00 89 28 147/70 (95) 92 12/23/19 17:00 93 29 152/70 (97) 94 12/23/19 16:00 60 12/23/19 16:00 98.0 94 29 151/61 (91) 96 12/23/19 16:00 93 12/23/19 16:00 Bi-pap 12/23/19 15:00 100 31 147/65 (92) 97 12/23/19 14:45 97 16 97 60 12/23/19 14:23 99.6 12/23/19 14:00 101 28 133/67 (89) 95 12/23/19 13:00 100.3 100 26 136/56 (82) 95 12/23/19 12:33 110 158/67 Height (Feet): 5 Height (Inches): 6.00 Weight (Pounds): 298 General Appearance: other - on vent and pressors HEENT: no JVD, other - oral - intubated Respiratory/Chest: respiratory distress, other - on vent Cardiovascular: normal rate, other - no pressros Abdomen: other - no rectal tube Genitourinary: other - + trivedi Chest x-ray - 11/17/19 - Procedure: XRAY Chest 1v Indication: Shortness of breath Technique: One view of the chest Comparison: 12/17/2019 Findings: The heart is enlarged. There is bilateral interstitial and airspace disease is again demonstrated, probably unchanged allowing for differences in degree of inspiration. Impression: Unchanged, over one day, findings as above. Chest x-ray - 12/21/19 - Procedure: XRAY Chest 1v Indication: Shortness of breath Technique: One view of the chest Comparison: 12/19/2019 Findings: The heart is enlarged. Bilateral extensive infiltrates are again demonstrated, stable to slightly worse allowing for differences in exposure technique. There is suggestion of increasing pleural fluid on the left. Nasogastric tube is again demonstrated. Impression: Stable to worsened bilateral extensive infiltrates, since exam of 2 days prior Increasing left pleural effusion Chest x-ray - 12/23/19 - IMPRESSION: 1. No significant interval change from the prior chest x-ray. 2. Persistent moderate left pleural effusion and mild right pleural effusion. 3. Pulmonary vascular congestion. 4. Persistent opacity in the left lung base, which may represent atelectasis versus pneumonia. Microbiology Date/Time Source Procedure Growth Status 12/23/19 23:50 Nasopharynx SARS-CoV-2 RdRp Gene Assay - Final Complete Laboratory Tests Test 12/23/19 12:37 12/23/19 18:00 12/23/19 22:12 12/24/19 06:17 POC Whole Blood Glucose Pending Arterial Blood pH 6.935 (7.350-7.450) 7.343 (7.350-7.450) Arterial Blood Partial Pressure CO2 166.2 mmHg (35.0-45.0) *H 54.5 mmHg (35.0-45.0) H Arterial Blood Partial Pressure O2 73.9 mmHg (75.0-100.0) L 116.6 mmHg (75.0-100.0) H Arterial Blood HCO3 34.5 mmol/L (22.0-26.0) H 28.9 mmol/L (22.0-26.0) H Arterial Blood Oxygen Saturation 88.1 % (95-100) *L 97.3 % (95-100) Arterial Blood Base Excess 0.4 (-2-2) 2.9 (-2-2) H Eugene Test Positive Positive White Blood Count 7.3 K/UL (4.8-10.8) Red Blood Count 2.27 M/UL (4.20-5.40) L Hemoglobin 6.2 G/DL (12.0-16.0) *L Hematocrit 20.3 % (37.0-47.0) L Mean Corpuscular Volume 89 FL (80-99) Mean Corpuscular Hemoglobin 27.3 PG (27.0-31.0) Mean Corpuscular Hemoglobin Concent 30.6 G/DL (32.0-36.0) L Red Cell Distribution Width 16.8 % (11.6-14.8) H Platelet Count 103 K/UL (150-450) L Mean Platelet Volume 6.8 FL (6.5-10.1) Neutrophils (%) (Auto) % (45.0-75.0) Lymphocytes (%) (Auto) % (20.0-45.0) Monocytes (%) (Auto) % (1.0-10.0) Eosinophils (%) (Auto) % (0.0-3.0) Basophils (%) (Auto) % (0.0-2.0) Differential Total Cells Counted 100 Neutrophils % (Manual) 76 % (45-75) H Lymphocytes % (Manual) 20 % (20-45) Monocytes % (Manual) 4 % (1-10) Eosinophils % (Manual) 0 % (0-3) Basophils % (Manual) 0 % (0-2) Band Neutrophils 0 % (0-8) Nucleated Red Blood Cells 3 /100 WBC Platelet Estimate Decreased L Platelet Morphology Normal Hypochromasia 4+ Anisocytosis 1+ Prothrombin Time 11.8 SEC (9.30-11.50) H Prothromb Time International Ratio 1.1 (0.9-1.1) Activated Partial Thromboplast Time 21 SEC (23-33) L Sodium Level 147 MMOL/L (136-145) H Potassium Level 5.3 MMOL/L (3.5-5.1) H Chloride Level 112 MMOL/L (98-107) H Carbon Dioxide Level 31 MMOL/L (21-32) Anion Gap 4 mmol/L (5-15) L Blood Urea Nitrogen 72 mg/dL (7-18) H Creatinine 2.1 MG/DL (0.55-1.30) H Estimat Glomerular Filtration Rate 23.5 mL/min (>60) Glucose Level 84 MG/DL (74-106) Calcium Level 8.7 MG/DL (8.5-10.1) Ferritin 729 NG/ML (8-388) H Total Bilirubin 0.7 MG/DL (0.2-1.0) Direct Bilirubin 0.4 MG/DL (0.0-0.3) H Aspartate Amino Transf (AST/SGOT) 18 U/L (15-37) Alanine Aminotransferase (ALT/SGPT) 24 U/L (12-78) Alkaline Phosphatase 68 U/L (46-116) Troponin I 0.001 ng/mL (0.000-0.056) C-Reactive Protein, Quantitative 15.6 mg/dL (0.00-0.90) H Total Protein 6.3 G/DL (6.4-8.2) L Albumin 1.9 G/DL (3.4-5.0) L Globulin 5.1 g/dL Albumin/Globulin Ratio 0.4 (1.0-2.7) L Triglycerides Level 107 MG/DL (30-150) Test 12/24/19 07:37 Arterial Blood pH 7.426 (7.350-7.450) Arterial Blood Partial Pressure CO2 47.8 mmHg (35.0-45.0) H Arterial Blood Partial Pressure O2 81.6 mmHg (75.0-100.0) Arterial Blood HCO3 30.7 mmol/L (22.0-26.0) H Arterial Blood Oxygen Saturation 95.0 % (95-100) Arterial Blood Base Excess 5.8 (-2-2) H Eugene Test Positive Current Medications Medications (Trade) Dose Ordered Sig/Shiraz Route PRN Reason Start Time Stop Time Status Last Admin Dose Admin Acetaminophen (Tylenol) 650 mg Q4H PRN NG Temp >100.5 12/22/19 16:00 01/11/20 22:14 12/23/19 13:53 Acetaminophen (Tylenol) 650 mg Q4H PRN NG Mild Pain (Pain Scale 1-3) 12/22/19 16:00 01/11/20 22:14 12/24/19 10:10 Albuterol Sulfate (Proventil MDI) 2 puff Q4H PRN INH Shortness of Breath 12/24/19 10:30 03/23/20 10:29 Bacitracin (Bacitracin 15gm tube) 1 applic BID TOPIC 12/22/19 18:00 03/12/20 08:59 12/24/19 08:20 Clotrimazole (Lotrimin) 1 applic TWICE A DAY TOPIC 12/22/19 18:00 03/12/20 08:59 12/24/19 08:20 Dexamethasone Sodium Phosphate (Decadron 10mg/ ml Inj) 6 mg DAILY IV 12/24/19 09:00 01/03/20 08:59 12/24/19 08:20 Dextrose (Dextrose 50%) 25 ml Q30M PRN IV Hypoglycemia 12/23/19 10:45 03/22/20 10:44 Dextrose (Dextrose 50%) 50 ml Q30M PRN IV Hypoglycemia 12/23/19 10:45 03/22/20 10:44 Diltiazem HCl (Cardizem Tab) 90 mg Q6HR NG 12/22/19 18:00 01/13/20 11:59 12/24/19 11:40 Enoxaparin Sodium (Lovenox) 60 mg DAILY SUBQ 12/23/19 09:00 03/22/20 08:59 Fentanyl Citrate 250 ml @ 0 mls/hr Q24H IV 12/23/19 22:30 12/25/19 22:00 12/23/19 22:18 Insulin Aspart (NovoLOG) BEFORE MEALS AND HS SUBQ 12/23/19 11:30 03/22/20 11:29 12/23/19 22:10 Linezolid 300 ml @ 300 mls/hr Q12HR IVPB 12/22/19 21:00 12/26/19 20:59 12/24/19 08:22 Magnesium Hydroxide (Mom) 30 ml HSPRN PRN NG Constipation 12/22/19 15:15 01/21/20 15:14 Meropenem 500 mg/ Sodium Chloride 55 ml @ 110 mls/hr Q12H IVPB 12/23/19 16:00 12/28/19 15:59 12/24/19 04:15 Metoprolol Tartrate (Lopressor) 50 mg Q12HR NG 12/22/19 21:00 03/18/20 20:59 12/24/19 08:19 Micafungin Sodium 100 mg/Sodium Chloride 110 ml @ 110 mls/hr Q24H IVPB 12/23/19 09:00 12/28/19 08:59 12/24/19 08:21 Miscellaneous Medication (Remdesivir Fact Sheet) 1 ea ONCE PRN MISC Pt currently sedated 12/24/19 10:30 01/03/20 10:29 Nitroglycerin (Ntg) 0.4 mg Q5M PRN SL Prn Chest Pain 12/22/19 15:00 01/11/20 22:14 Non-Formulary Medication (Non-Formulary Med) 1 ea DAILY ORAL 12/24/19 09:00 01/23/20 08:59 UNV Ondansetron HCl (Zofran) 4 mg Q6H PRN IVP Nausea & Vomiting 12/22/19 15:15 01/11/20 15:14 Pantoprazole (Protonix) 40 mg EVERY 12 HOURS IVP 12/22/19 21:00 01/18/20 20:59 12/24/19 08:19 Polyethylene Glycol (Miralax) 17 gm BEDTIME NG 12/22/19 21:00 01/18/20 20:59 12/23/19 22:09 Polymyxin B Sulfate 105532 units/Dextrose 550 ml @ 550 mls/hr EVERY 12 HOURS IV 12/23/19 13:00 12/30/19 12:59 12/24/19 08:21 Remdesivir 100 mg/ Sodium Chloride 250 ml @ 250 mls/hr Q24H IV 12/25/19 14:00 01/02/20 14:59 Remdesivir 200 mg/ Sodium Chloride 250 ml @ 125 mls/hr ONCE IV 12/24/19 14:00 12/24/19 15:59 Risperidone (RisperDAL) 2 mg BEDTIME NG 12/22/19 21:00 02/04/20 20:59 12/23/19 22:08 Aleisha Coronel MD Dec 24, 2019 12:15
[2019-12-24] MEDS: LORazepam Inj 2mg/ml 1ml IV PRN (13:27)
--- NOTE | 2019-12-24 13:30 | Cardiology Report ---
APPROVED REPORT EXAM: Two-dimensional and M-mode echocardiogram with Doppler and color Doppler. INDICATION Atrial Fibrillation M-Mode DIMENSIONS IVSd1.1 (0.7-1.1cm)Left Atrium (MM)5.2 (1.6-4.0cm) LVDd4.5 (3.5-5.6cm)Aortic Root2.3 (2.0-3.7cm) PWd1.0 (0.7-1.1cm)Aortic Cusp Exc.1.6 (1.5-2.0cm) IVSs1.1 cm LVDs3.0 (2.5-4.0cm) PWs1.8 cm <Conclusion> Technically difficult study due to poor acoustic windows. Normal left ventricular chamber size, systolic function and wall motion to extent visualized. Left ventricular ejection fraction estimated to be 55-60 %. No evidence of left ventricular hypertrophy. Anterior Echo-free space, may be due to pericardial fat or effusion. Mild bi-trial enlargement. Right ventricular chamber sizes is within normal limits. Focal aortic valve sclerosis with adequate cusp excursion. Thickened mitral valve leaflets with normal excursion. Mitral annulus and aortic root calcification. Pulmonic valve not well visualized. Normal tricuspid valve structure. Subcostal views unobtainable. A color flow and spectral Doppler study was performed and revealed: Trace mitral regurgitation. Left ventricular diastolic function could not be determined due to arrhythmia. Trace tricuspid regurgitation. Tricuspid systolic velocities suggests peak right ventricular systolic pressure of 7 mmHg.
[2019-12-24] MEDS ORDERED: Loading Dose:Remdesivir 200mg/NS 210ml IV SCH ×2 (14:00)
--- NOTE | 2019-12-24 14:45 | NUR ---
CASE MANAGEMENT:REVIEW 12/24/19 SI;NOW COVID + PNA . SEVERE ANEMIA E COLI UTI. COPD. ASP PNA. AFIB W/ PVC UNCONTROLLED HR . BLE EDEMA 100.6 105 20 115/50 100% ON MECHANICAL VENT ET TUBE H/H 6.2/20.3 PLT 103 NA 147 K+ 5.3 BUN/CREAT 72/2.1 FERR 729 PT 11.8 PTT 21 ABC pCO2 47.8 HCO3 30.7 IS;IV REMDESIVIR X1 IV CARDIZEM Q6HR IV LINEZOLID BID IV POLYMYXIN BID IV MICAFUNGIN BLOOD TX- X1 ICU STATUS DCP;FROM [facility]: ISOLATION PRECAUTION
--- NOTE | 2019-12-24 15:21 | NUR ---
*-* INSURANCE *-* UPDATED CLINICALS AND REVIEWS HAVE BEEN FAXED TO: [facility] PH: NEL FARAH [phone] CLINICALS: [phone]
--- NOTE | 2019-12-24 16:36 | NUR ---
NURSE NOTES: Nepro Tube feeding started at 10cc/hr, goal of 40cc/hr.
--- NOTE | 2019-12-24 17:05 | Surgery Progress Note ---
Surgery Progress Note Subjective Symptoms: worse Additional Comments covid + anemia ill appearing agitated on vent Objective Last 24 Hour Vital Signs Date Time Temp Pulse Resp B/P (MAP) Pulse Ox O2 Delivery O2 Flow Rate FiO2 12/24/19 16:00 99.5 114 23 133/119 (124) 91 12/24/19 16:00 Mechanical Ventilator 12/24/19 16:00 108 12/24/19 16:00 50 12/24/19 15:31 107 12/24/19 15:00 109 22 131/65 (87) 99 12/24/19 15:00 22 131/65 Endotracheal Tube 40 12/24/19 14:59 120 19 45 12/24/19 14:45 24 128/56 Endotracheal Tube 40 12/24/19 14:30 26 119/57 Endotracheal Tube 40 12/24/19 14:16 115 24 98/76 90 12/24/19 14:15 19 136/59 Endotracheal Tube 40 12/24/19 14:00 114 22 127/84 (98) 94 12/24/19 14:00 22 126/51 Endotracheal Tube 40 12/24/19 13:45 19 106/84 Endotracheal Tube 40 12/24/19 13:30 28 140/48 Endotracheal Tube 40 12/24/19 13:27 115 24 98/76 90 12/24/19 13:15 20 98/76 Endotracheal Tube 40 12/24/19 13:00 115 24 89/53 (65) 90 12/24/19 13:00 24 98/76 Endotracheal Tube 40 12/24/19 12:45 15 89/53 Endotracheal Tube 40 12/24/19 12:30 13 95/77 Endotracheal Tube 40 12/24/19 12:15 26 108/37 Endotracheal Tube 40 12/24/19 12:00 Mechanical Ventilator 12/24/19 12:00 40 12/24/19 12:00 24 93/74 Endotracheal Tube 40 12/24/19 12:00 99.3 99 24 93/74 (80) 91 12/24/19 11:53 114 12/24/19 11:45 23 126/66 Endotracheal Tube 40 12/24/19 11:40 117 126/57 12/24/19 11:30 17 125/57 Endotracheal Tube 40 12/24/19 11:15 20 111/67 Endotracheal Tube 40 12/24/19 11:00 24 92/51 Endotracheal Tube 40 12/24/19 11:00 100.3 111 22 92/51 (65) 94 12/24/19 10:52 107 21 97 Mechanical Ventilator 40 12/24/19 10:49 106 19 40 12/24/19 10:40 100.3 12/24/19 10:05 19 92/78 Endotracheal Tube 55 12/24/19 10:00 94 20 94/60 (71) 96 12/24/19 09:05 13 91/46 Endotracheal Tube 55 12/24/19 09:00 92 15 98/45 (62) 98 12/24/19 08:19 105 118/48 12/24/19 08:05 14 118/48 Endotracheal Tube 55 12/24/19 08:00 100.6 105 20 115/50 (71) 100 12/24/19 08:00 Mechanical Ventilator 12/24/19 07:47 108 12/24/19 07:40 100 Mechanical Ventilator 100 12/24/19 07:37 89 16 55 12/24/19 07:05 16 103/64 Mechanical Ventilator 40 12/24/19 07:00 107 18 119/54 (75) 99 12/24/19 06:26 103 118/70 12/24/19 06:05 18 121/68 Mechanical Ventilator 55 12/24/19 06:00 106 18 118/70 (86) 100 12/24/19 05:05 17 121/68 Mechanical Ventilator 55 12/24/19 05:00 100.7 103 19 121/68 (85) 83 12/24/19 04:05 16 110/67 Mechanical Ventilator 55 12/24/19 04:00 98 18 110/67 (81) 100 12/24/19 04:00 Mechanical Ventilator 12/24/19 04:00 104 12/24/19 03:05 16 107/69 Mechanical Ventilator 55 12/24/19 03:00 100 16 55 12/24/19 03:00 87 19 94/52 (66) 99 12/24/19 02:45 88 17 92/54 (67) 100 12/24/19 02:30 84 16 105/49 (67) 99 12/24/19 02:15 84 15 104/59 (74) 100 12/24/19 02:05 18 102/49 Mechanical Ventilator 55 12/24/19 02:00 85 17 102/49 (66) 99 12/24/19 01:50 16 101/82 Mechanical Ventilator 55 12/24/19 01:45 86 18 107/54 (71) 97 12/24/19 01:35 17 107/54 Mechanical Ventilator 55 12/24/19 01:30 80 18 110/61 (77) 97 12/24/19 01:20 18 115/100 Mechanical Ventilator 55 12/24/19 01:15 75 16 101/82 (88) 98 12/24/19 01:00 58 17 83/67 (72) 99 12/24/19 00:45 58 15 76/35 (49) 99 12/24/19 00:30 53 15 76/41 (53) 100 12/24/19 00:18 16 106/39 Mechanical Ventilator 55 12/24/19 00:15 61 15 106/39 (61) 100 12/24/19 00:10 64 14 87/43 (58) 100 12/24/19 00:03 16 105/57 Mechanical Ventilator 55 12/24/19 00:00 97.0 76 16 105/57 (73) 100 12/24/19 00:00 Mechanical Ventilator 12/24/19 00:00 72 12/23/19 23:48 17 108/64 Mechanical Ventilator 55 12/23/19 23:45 80 16 106/52 (70) 100 12/23/19 23:36 82 110/72 12/23/19 23:33 18 119/81 Mechanical Ventilator 55 12/23/19 23:30 81 16 108/48 (68) 100 12/23/19 23:18 17 142/66 Mechanical Ventilator 55 12/23/19 23:15 85 17 105/58 (74) 100 12/23/19 23:05 104 16 55 12/23/19 23:03 19 108/49 Mechanical Ventilator 55 12/23/19 23:00 77 20 108/64 (79) 99 12/23/19 22:48 28 124/53 Mechanical Ventilator 55 12/23/19 22:45 88 18 114/78 (90) 100 12/23/19 22:33 17 142/66 Mechanical Ventilator 55 12/23/19 22:30 90 16 119/81 (94) 100 12/23/19 22:18 23 109/51 Mechanical Ventilator 55 12/23/19 22:15 92 17 142/66 (91) 100 12/23/19 22:08 76 115/68 12/23/19 22:00 80 15 109/51 (70) 97 12/23/19 21:35 86 16 55 12/23/19 21:30 79 16 115/58 (77) 100 12/23/19 21:00 73 28 114/49 (70) 99 12/23/19 20:00 73 12/23/19 20:00 Bi-pap 12/23/19 20:00 60 12/23/19 20:00 97.7 81 29 136/62 (86) 94 12/23/19 19:47 82 16 93 60 12/23/19 19:46 60 Bi-Pap 93 12/23/19 19:00 81 30 145/53 (83) 95 12/23/19 18:23 85 147/70 12/23/19 18:00 89 28 147/70 (95) 92 I&O Intake and Output 12/23/19 12/24/19 19:00 07:00 Intake Total 918 ml Output Total 690 ml 1180 ml Balance -690 ml -262 ml IV Total 918 ml Output Urine Total 690 ml 1180 ml Dressing: dry Cardiovascular: RSR Respiratory: decreased breath sounds Abdomen: soft, non-tender, present bowel sounds Extremities: edema, no tenderness, no cyanosis, pulses, other Laboratory Tests Test 12/23/19 18:00 12/23/19 22:12 12/24/19 06:17 12/24/19 07:37 Arterial Blood pH 6.935 (7.350-7.450) 7.343 (7.350-7.450) 7.426 (7.350-7.450) Arterial Blood Partial Pressure CO2 166.2 mmHg (35.0-45.0) *H 54.5 mmHg (35.0-45.0) H 47.8 mmHg (35.0-45.0) H Arterial Blood Partial Pressure O2 73.9 mmHg (75.0-100.0) L 116.6 mmHg (75.0-100.0) H 81.6 mmHg (75.0-100.0) Arterial Blood HCO3 34.5 mmol/L (22.0-26.0) H 28.9 mmol/L (22.0-26.0) H 30.7 mmol/L (22.0-26.0) H Arterial Blood Oxygen Saturation 88.1 % (95-100) *L 97.3 % (95-100) 95.0 % (95-100) Arterial Blood Base Excess 0.4 (-2-2) 2.9 (-2-2) H 5.8 (-2-2) H Eugene Test Positive Positive Positive White Blood Count 7.3 K/UL (4.8-10.8) Red Blood Count 2.27 M/UL (4.20-5.40) L Hemoglobin 6.2 G/DL (12.0-16.0) *L Hematocrit 20.3 % (37.0-47.0) L Mean Corpuscular Volume 89 FL (80-99) Mean Corpuscular Hemoglobin 27.3 PG (27.0-31.0) Mean Corpuscular Hemoglobin Concent 30.6 G/DL (32.0-36.0) L Red Cell Distribution Width 16.8 % (11.6-14.8) H Platelet Count 103 K/UL (150-450) L Mean Platelet Volume 6.8 FL (6.5-10.1) Neutrophils (%) (Auto) % (45.0-75.0) Lymphocytes (%) (Auto) % (20.0-45.0) Monocytes (%) (Auto) % (1.0-10.0) Eosinophils (%) (Auto) % (0.0-3.0) Basophils (%) (Auto) % (0.0-2.0) Differential Total Cells Counted 100 Neutrophils % (Manual) 76 % (45-75) H Lymphocytes % (Manual) 20 % (20-45) Monocytes % (Manual) 4 % (1-10) Eosinophils % (Manual) 0 % (0-3) Basophils % (Manual) 0 % (0-2) Band Neutrophils 0 % (0-8) Nucleated Red Blood Cells 3 /100 WBC Platelet Estimate Decreased L Platelet Morphology Normal Hypochromasia 4+ Anisocytosis 1+ Prothrombin Time 11.8 SEC (9.30-11.50) H Prothromb Time International Ratio 1.1 (0.9-1.1) Activated Partial Thromboplast Time 21 SEC (23-33) L Sodium Level 147 MMOL/L (136-145) H Potassium Level 5.3 MMOL/L (3.5-5.1) H Chloride Level 112 MMOL/L (98-107) H Carbon Dioxide Level 31 MMOL/L (21-32) Anion Gap 4 mmol/L (5-15) L Blood Urea Nitrogen 72 mg/dL (7-18) H Creatinine 2.1 MG/DL (0.55-1.30) H Estimat Glomerular Filtration Rate 23.5 mL/min (>60) Glucose Level 84 MG/DL (74-106) Calcium Level 8.7 MG/DL (8.5-10.1) Ferritin 729 NG/ML (8-388) H Total Bilirubin 0.7 MG/DL (0.2-1.0) Direct Bilirubin 0.4 MG/DL (0.0-0.3) H Aspartate Amino Transf (AST/SGOT) 18 U/L (15-37) Alanine Aminotransferase (ALT/SGPT) 24 U/L (12-78) Alkaline Phosphatase 68 U/L (46-116) Troponin I 0.001 ng/mL (0.000-0.056) C-Reactive Protein, Quantitative 15.6 mg/dL (0.00-0.90) H Total Protein 6.3 G/DL (6.4-8.2) L Albumin 1.9 G/DL (3.4-5.0) L Globulin 5.1 g/dL Albumin/Globulin Ratio 0.4 (1.0-2.7) L Triglycerides Level 107 MG/DL (30-150) Test 12/24/19 16:10 Interleukin 6 (IL-6) Pending Plan Problems: (1) Urinary tract infection (2) CHF exacerbation (3) History of schizophrenia (4) Atrial fibrillation with RVR (5) Schizophrenia (6) GERD (gastroesophageal reflux disease) (7) Smoker (8) Atrial fibrillation with rapid ventricular response (9) Lymphadema (10) COPD (chronic obstructive pulmonary disease) (11) CKD (chronic kidney disease) stage 3, GFR 30-59 ml/min (12) NATALIE (acute kidney injury) (13) Dehydration (14) Dysphagia (15) UTI (urinary tract infection) (16) UGI bleed (17) ESBL (extended spectrum beta-lactamase) producing bacteria infection (18) Constipation (19) Lactic acidosis (20) Tinea cruris (21) Onychomycosis (22) Emesis (23) Essential hypertension (24) Anemia (25) Cough (26) Depression (27) Depression (28) Edema (29) Rash (30) Opiate dependence (31) Opiate dependence (32) Opiate dependence (33) Opiate dependence (34) Pyelonephritis (35) Sepsis (36) UTI (urinary tract infection) (37) Nausea and vomiting (38) Abdominal pain Assessment & Plan: [age]-year-old female obese white abdominal pain deep tissue injury identified limited mobility on HD. KUB noted tube in place continue meds feeds Does not seem obstructed We will monitor FINDINGS: Lower thorax: Obscuration of the left costophrenic angle suggestive of pleural effusion. Intraperitoneal space: No free air. Gastrointestinal tract: Unremarkable. No dilation. Bones/joints: Unremarkable. Tubes, lines and devices: The nasogastric tube has the tip at the mid inferior aspect of the gastric body. Other findings: Nonspecific gas pattern. Single frontal view of the abdomen demonstrates tip of the enteric tube and distal side-port projecting over the stomach. Gas is identified within the nondistended large bowel. There is a paucity of small bowel gas seen. Partially visualized left pleural effusion. No other significant interval change. (39) Chest pain (40) Chest pain (41) Nausea (42) Obesity (43) Chronic ulcer of leg (44) Chronic ulcer of leg (45) Chronic ulcer of leg (46) ACS (acute coronary syndrome) (47) Acute chest pain (48) Encounter for dressing change or suture removal (49) Left leg cellulitis (50) Acute encephalopathy (51) Encounter for wound re-check (52) Intractable nausea and vomiting (53) Infection due to ESBL-producing Escherichia coli (54) Chronic venous stasis (55) Change of dressing (56) Change of dressing (57) Change of dressing (58) Change of dressing (59) Change of dressing (60) Change of dressing (61) Change of dressing (62) Change of dressing (63) ESBL urine (64) Lymphadema (65) Lymphedema (66) Lymphedema (67) Lymphedema (68) Lymphedema (69) Lymphedema (70) Lymphedema (71) Lymphedema (72) Lymphedema (73) Open wound of foot (74) Open wound of foot (75) cellulitis (76) chronic lymphedema (77) chronic lymphedema (78) chronic lymphedema (79) hypertension uncontrolled (80) hypertension uncontrolled (81) Intertrigo (82) Sciatica (83) Cellulitis (84) Schizophrenia (85) Chronic bronchitis (86) HTN (hypertension) (87) Venous stasis ulcers (88) Medication refill (89) Chest pain, atypical (90) BMI 45.0-49.9, adult (91) Lymphedema of both lower extremities (92) hypertension uncontrolled (93) hypertension uncontrolled (94) hypertension uncontrolled (95) tenia corpus (96) Deep tissue injury Assessment & Plan: Morbidly obese pt whom presented on admission with Pressure injuries, Edemae bilat lower extremities eschar to dorsal aspects of metatarsals. Pt is very demanding of staff and can be resistive to repositioning. DTPI noted to L Sacrum(L)5.5cm x (W)2.5cm. Base of Pressure Injury is Maroon and indurated with surrounding non-blanchable erythema DTPI R Sacrum(L)5.5cm x (W)2.3cm. Base of Pressure Injury is maroon with purpuric center that is fluctuant. Pt complained of tenderness when minimally palpated. Bilat lower extremities are edematous . Dry eschar noted to nail matrix and tip of L 1st metatarsal, Dorsal L 2nd metatarsal, R 2nd and R 4th metatarsals. Both heels are boggy with non-Blanchable erythema. blisters forming on Right lower extremity anterior tibia. not infected cellulitis / edema on b/l le stable cont abx Tx.Plan: Apply Moisture Barrier Paste to Sacrum R and L gluteal cheeks. Cover with Optifoam drsgs. Change every 3 days and prn. Apply Betadine to dry eschar metatarsals both feet Daily. Apply Cavilon Skin Barrier to both heels. Cover each heel with Optifoam drsgs. Change every 7days and prn. Reposition at least every 2hours or as tolerated. Off-load heels with pillow. (97) COVID-19 Assessment & Plan: ++ on vent weaning abx as per ID (98) Respiratory failure (99) Pneumonia Juan Manuel Buckner Dec 24, 2019 17:05
--- NOTE | 2019-12-24 17:07 | General Progress Note ---
Assessment/Plan Problem List: (1) Schizophrenia ICD Codes: F20.9 - Schizophrenia, unspecified SNOMED: 14230110 (2) GERD (gastroesophageal reflux disease) ICD Codes: K21.9 - Gastro-esophageal reflux disease without esophagitis SNOMED: 749128325 (3) Lymphadema (4) Smoker ICD Codes: F17.200 - Nicotine dependence, unspecified, uncomplicated SNOMED: 32838461 (5) Atrial fibrillation with rapid ventricular response ICD Codes: I48.91 - Unspecified atrial fibrillation SNOMED: 840313770892519 (6) CKD (chronic kidney disease) stage 3, GFR 30-59 ml/min ICD Codes: N18.3 - Chronic kidney disease, stage 3 (moderate) SNOMED: 270464449 (7) NATALIE (acute kidney injury) ICD Codes: N17.9 - Acute kidney failure, unspecified SNOMED: 7594404, 89629023 (8) COPD (chronic obstructive pulmonary disease) ICD Codes: J44.9 - Chronic obstructive pulmonary disease, unspecified SNOMED: 09429101 (9) UGI bleed ICD Codes: K92.2 - Gastrointestinal hemorrhage, unspecified SNOMED: 26364949 (10) Dysphagia ICD Codes: R13.10 - Dysphagia, unspecified SNOMED: 02025622, 888501043 (11) UTI (urinary tract infection) ICD Codes: N39.0 - Urinary tract infection, site not specified SNOMED: 84712818 (12) ESBL (extended spectrum beta-lactamase) producing bacteria infection ICD Codes: A49.9 - Bacterial infection, unspecified; Z16.12 - Extended spectrum beta lactamase (ESBL) resistance SNOMED: 855406287 (13) Dehydration ICD Codes: E86.0 - Dehydration SNOMED: 31115949 (14) CHF exacerbation ICD Codes: I50.9 - Heart failure, unspecified SNOMED: 100133198, 39451133577276 (15) Acute respiratory failure ICD Codes: J96.00 - Acute respiratory failure, unspecified whether with hypoxia or hypercapnia SNOMED: 35997290 (16) COVID-19 ICD Codes: U07.1 - COVID-19 SNOMED: 289544705 (17) Pneumonia ICD Codes: J18.9 - Pneumonia, unspecified organism SNOMED: 362198092 Status: stable Assessment/Plan: resp distress, icu, bipap now intubated, worse natalie,, I/O, ,+hematoma RLE stop eliquis ancd asa, lovenox now iv protonix, rx esbl and + vre uti,g+ cocci linezolid , remains high risk, psychotic and hallucinating d/w psych, ID, cardiology, chf wourse and increase lasix 80 iv q 6h,covid neg prior now +, grave prognosiss, Hb fell to 6.2, needs transfusion, unable to consent icu time 40 min Subjective ROS Limited/Unobtainable: Yes Allergies: Coded Allergies: ERYTHROMYCIN BASE (Verified Allergy, Severe, 12/12/19) HALOPERIDOL (Verified Allergy, Unknown, 12/12/19) VANCOMYCIN (Unverified Adverse Reaction, Intermediate, Shortness of Breath , 12/12/19) Objective Last 24 Hour Vital Signs Date Time Temp Pulse Resp B/P (MAP) Pulse Ox O2 Delivery O2 Flow Rate FiO2 12/24/19 16:00 99.5 114 23 133/119 (124) 91 12/24/19 16:00 Mechanical Ventilator 12/24/19 16:00 108 12/24/19 16:00 50 12/24/19 15:31 107 12/24/19 15:00 109 22 131/65 (87) 99 12/24/19 15:00 22 131/65 Endotracheal Tube 40 12/24/19 14:59 120 19 45 12/24/19 14:45 24 128/56 Endotracheal Tube 40 12/24/19 14:30 26 119/57 Endotracheal Tube 40 12/24/19 14:16 115 24 98/76 90 12/24/19 14:15 19 136/59 Endotracheal Tube 40 12/24/19 14:00 114 22 127/84 (98) 94 12/24/19 14:00 22 126/51 Endotracheal Tube 40 12/24/19 13:45 19 106/84 Endotracheal Tube 40 12/24/19 13:30 28 140/48 Endotracheal Tube 40 12/24/19 13:27 115 24 98/76 90 12/24/19 13:15 20 98/76 Endotracheal Tube 40 12/24/19 13:00 115 24 89/53 (65) 90 12/24/19 13:00 24 98/76 Endotracheal Tube 40 12/24/19 12:45 15 89/53 Endotracheal Tube 40 12/24/19 12:30 13 95/77 Endotracheal Tube 40 12/24/19 12:15 26 108/37 Endotracheal Tube 40 12/24/19 12:00 Mechanical Ventilator 12/24/19 12:00 40 12/24/19 12:00 24 93/74 Endotracheal Tube 40 12/24/19 12:00 99.3 99 24 93/74 (80) 91 12/24/19 11:53 114 12/24/19 11:45 23 126/66 Endotracheal Tube 40 12/24/19 11:40 117 126/57 12/24/19 11:30 17 125/57 Endotracheal Tube 40 12/24/19 11:15 20 111/67 Endotracheal Tube 40 12/24/19 11:00 24 92/51 Endotracheal Tube 40 12/24/19 11:00 100.3 111 22 92/51 (65) 94 12/24/19 10:52 107 21 97 Mechanical Ventilator 40 12/24/19 10:49 106 19 40 12/24/19 10:40 100.3 12/24/19 10:05 19 92/78 Endotracheal Tube 55 12/24/19 10:00 94 20 94/60 (71) 96 12/24/19 09:05 13 91/46 Endotracheal Tube 55 12/24/19 09:00 92 15 98/45 (62) 98 12/24/19 08:19 105 118/48 12/24/19 08:05 14 118/48 Endotracheal Tube 55 12/24/19 08:00 100.6 105 20 115/50 (71) 100 12/24/19 08:00 Mechanical Ventilator 12/24/19 07:47 108 12/24/19 07:40 100 Mechanical Ventilator 100 12/24/19 07:37 89 16 55 12/24/19 07:05 16 103/64 Mechanical Ventilator 40 12/24/19 07:00 107 18 119/54 (75) 99 12/24/19 06:26 103 118/70 12/24/19 06:05 18 121/68 Mechanical Ventilator 55 12/24/19 06:00 106 18 118/70 (86) 100 12/24/19 05:05 17 121/68 Mechanical Ventilator 55 12/24/19 05:00 100.7 103 19 121/68 (85) 83 12/24/19 04:05 16 110/67 Mechanical Ventilator 55 12/24/19 04:00 98 18 110/67 (81) 100 12/24/19 04:00 Mechanical Ventilator 12/24/19 04:00 104 12/24/19 03:05 16 107/69 Mechanical Ventilator 55 12/24/19 03:00 100 16 55 12/24/19 03:00 87 19 94/52 (66) 99 12/24/19 02:45 88 17 92/54 (67) 100 12/24/19 02:30 84 16 105/49 (67) 99 12/24/19 02:15 84 15 104/59 (74) 100 12/24/19 02:05 18 102/49 Mechanical Ventilator 55 12/24/19 02:00 85 17 102/49 (66) 99 12/24/19 01:50 16 101/82 Mechanical Ventilator 55 12/24/19 01:45 86 18 107/54 (71) 97 12/24/19 01:35 17 107/54 Mechanical Ventilator 55 12/24/19 01:30 80 18 110/61 (77) 97 12/24/19 01:20 18 115/100 Mechanical Ventilator 55 12/24/19 01:15 75 16 101/82 (88) 98 12/24/19 01:00 58 17 83/67 (72) 99 12/24/19 00:45 58 15 76/35 (49) 99 12/24/19 00:30 53 15 76/41 (53) 100 12/24/19 00:18 16 106/39 Mechanical Ventilator 55 12/24/19 00:15 61 15 106/39 (61) 100 12/24/19 00:10 64 14 87/43 (58) 100 12/24/19 00:03 16 105/57 Mechanical Ventilator 55 12/24/19 00:00 97.0 76 16 105/57 (73) 100 12/24/19 00:00 Mechanical Ventilator 12/24/19 00:00 72 12/23/19 23:48 17 108/64 Mechanical Ventilator 55 12/23/19 23:45 80 16 106/52 (70) 100 12/23/19 23:36 82 110/72 12/23/19 23:33 18 119/81 Mechanical Ventilator 55 12/23/19 23:30 81 16 108/48 (68) 100 12/23/19 23:18 17 142/66 Mechanical Ventilator 55 12/23/19 23:15 85 17 105/58 (74) 100 12/23/19 23:05 104 16 55 12/23/19 23:03 19 108/49 Mechanical Ventilator 55 12/23/19 23:00 77 20 108/64 (79) 99 12/23/19 22:48 28 124/53 Mechanical Ventilator 55 12/23/19 22:45 88 18 114/78 (90) 100 12/23/19 22:33 17 142/66 Mechanical Ventilator 55 12/23/19 22:30 90 16 119/81 (94) 100 12/23/19 22:18 23 109/51 Mechanical Ventilator 55 12/23/19 22:15 92 17 142/66 (91) 100 12/23/19 22:08 76 115/68 12/23/19 22:00 80 15 109/51 (70) 97 12/23/19 21:35 86 16 55 12/23/19 21:30 79 16 115/58 (77) 100 12/23/19 21:00 73 28 114/49 (70) 99 12/23/19 20:00 73 12/23/19 20:00 Bi-pap 12/23/19 20:00 60 12/23/19 20:00 97.7 81 29 136/62 (86) 94 12/23/19 19:47 82 16 93 60 12/23/19 19:46 60 Bi-Pap 93 12/23/19 19:00 81 30 145/53 (83) 95 12/23/19 18:23 85 147/70 12/23/19 18:00 89 28 147/70 (95) 92 Intake and Output 12/23/19 12/24/19 19:00 07:00 Intake Total 918 ml Output Total 690 ml 1180 ml Balance -690 ml -262 ml IV Total 918 ml Output Urine Total 690 ml 1180 ml Laboratory Tests 12/23/19 18:00: Arterial Blood pH 6.935*L, Arterial Blood Partial Pressure CO2 166.2*H, Arterial Blood Partial Pressure O2 73.9L, Arterial Blood HCO3 34.5H, Arterial Blood Oxygen Saturation 88.1*L, Arterial Blood Base Excess 0.4, Eugene Test Positive 12/23/19 22:12: Arterial Blood pH 7.343L, Arterial Blood Partial Pressure CO2 54.5H, Arterial Blood Partial Pressure O2 116.6H, Arterial Blood HCO3 28.9H, Arterial Blood Oxygen Saturation 97.3, Arterial Blood Base Excess 2.9H, Eugene Test Positive 12/24/19 06:17: White Blood Count 7.3, Red Blood Count 2.27L, Hemoglobin 6.2*L, Hematocrit 20.3L , Mean Corpuscular Volume 89, Mean Corpuscular Hemoglobin 27.3, Mean Corpuscular Hemoglobin Concent 30.6L, Red Cell Distribution Width 16.8H, Platelet Count 103L, Mean Platelet Volume 6.8, Neutrophils (%) (Auto) , Lymphocytes (%) (Auto) , Monocytes (%) (Auto) , Eosinophils (%) (Auto) , Basophils (%) (Auto) , Differential Total Cells Counted 100, Neutrophils % ( Manual) 76H, Lymphocytes % (Manual) 20, Monocytes % (Manual) 4, Eosinophils % ( Manual) 0, Basophils % (Manual) 0, Band Neutrophils 0, Nucleated Red Blood Cells 3, Platelet Estimate DecreasedL, Platelet Morphology Normal, Hypochromasia 4+, Anisocytosis 1+, Prothrombin Time 11.8H, Prothromb Time International Ratio 1.1, Activated Partial Thromboplast Time 21L, Sodium Level 147H, Potassium Level 5.3H, Chloride Level 112H, Carbon Dioxide Level 31, Anion Gap 4L, Blood Urea Nitrogen 72H, Creatinine 2.1H, Estimat Glomerular Filtration Rate 23.5, Glucose Level 84, Calcium Level 8.7, Ferritin 729H, Total Bilirubin 0.7, Direct Bilirubin 0.4H, Aspartate Amino Transf (AST/SGOT) 18, Alanine Aminotransferase (ALT/SGPT) 24, Alkaline Phosphatase 68, Troponin I 0.001, C- Reactive Protein, Quantitative 15.6H, Total Protein 6.3L, Albumin 1.9L, Globulin 5.1, Albumin/Globulin Ratio 0.4L, Triglycerides Level 107 12/24/19 07:37: Arterial Blood pH 7.426, Arterial Blood Partial Pressure CO2 47.8H, Arterial Blood Partial Pressure O2 81.6, Arterial Blood HCO3 30.7H, Arterial Blood Oxygen Saturation 95.0, Arterial Blood Base Excess 5.8H, Eugene Test Positive 12/24/19 16:10: Interleukin 6 (IL-6) [Pending] Height (Feet): 5 Height (Inches): 6.00 Weight (Pounds): 298 General Appearance: morbidly obese EENT: other - intubated Cardiovascular: regularly irregular Respiratory/Chest: crackles/rales Abdomen: non tender Edema: mild edema Neurologic: unresponsive Benjamin Dumont MD Dec 24, 2019 17:07
[2019-12-24] MEDS ORDERED: Heparin1,000 units/500ml Premix(Conc:2 units/ml) IV PRN (17:15)
[2019-12-24] MEDS ORDERED: Lidocaine 1% Plain 30 ml INJ PRN (17:15)
[2019-12-24] MEDS: Dextrose 10% 1,000 ML IV SCH (18:32)
--- NOTE | 2019-12-24 18:58 | NUR ---
NURSE NOTES: Bed bath given to patient, turned and repositioned. All IV sites replaced. New Left hand 20g and Right hand 20g are patent and intact.
--- NOTE | 2019-12-24 19:23 | NUR ---
NURSE HAND-OFF REPORT: Latest Vital Signs: Temperature 99.5 , Pulse 107 , B/P 148 /59 , Respiratory Rate 16 , O2 SAT 96 , Endotracheal Tube, O2 Flow Rate . Vital Sign Comment: EKG Rhythm: Atrial Fibrillation Rhythm change?: N Notified?: Y -MD Gaviota UNDERWOOD Response: Latest Abreu Fall Score: 75 Fall Risk: High Risk Safety Measures: Call light Within Reach, Bed Alarm Zone 2, Side Rails Side Rails x3, Bed position Low and Locked. Fall Precautions: Yellow Socks Report given to Cathie COHEN.
--- NOTE | 2019-12-24 19:24 | NUR ---
NURSE NOTES: Patient received from NOEL Thompson. patient sedated to RASS -2. patient with 7.5 ETT at 23cm lipline on ventilator AC 16 TV 600 FiO2 40% PEEP 5. BP127/66 HR93 Afib on monitor. left and right hand #20 PIV running Fentanyl 200mcg/hr, D10W @50ml/hr asymptomatic. patient with right nare NGT running Nepro 1.8 @10ml/hr no residual noted. Lockett catheter draining doretha urine. generalized extremity edema noted with left knee ecchymosis, right knee hematoma with open dry blisters, sacral and bilateral heel DTPI noted. patient finished one unit PRBC, was endorsed Dr. Dumont ordered one more unit PRBC, order entered. patient repositioned and oral care provided.
[2019-12-24] MEDS ORDERED: NS 275ml ONE (19:30)
[2019-12-24] MEDS: Miralax 17gm pkt NG SCH (20:29)
[2019-12-24] MEDS: Dyna-Hex 2% Top Sol 2oz TOPIC SCH (20:29)
[2019-12-24] MEDS: fentaNYL 2500mcg/NS 250ml 250 ML IV SCH (21:17)
--- NOTE | 2019-12-24 22:00 | NUR ---
NURSE NOTES: patient sedated to RASS -2. patient with 7.5 ETT at 23cm lipline on ventilator AC 16 TV 600 FiO2 40% PEEP 5. BP139/49 HR83 Afib on monitor. left and right hand #20 PIV running Fentanyl 200mcg/hr, D10W @50ml/hr, and patient receiving second unit of PRBC asymptomatic. patient with right nare NGT running Nepro 1.8 @10ml/hr no residual noted. Metoprolol held due to patient having brief episode of bradycardia. Lockett catheter draining doretha urine. patient repositioned and oral care provided.
[2019-12-25] VITALS (33 sets, daily range): BP systolic 81–163; BP diastolic 37–92
--- NOTE | 2019-12-25 | NUR ---
NURSE NOTES: patient sedated to RASS -2. patient with 7.5 ETT at 23cm lipline on ventilator AC 16 TV 600 FiO2 40% PEEP 5. BP142/48 HR80 Afib on monitor. left and right hand #20 PIV running Fentanyl 200mcg/hr, D10W @50ml/hr, and patient received second unit of PRBC. patient with right nare NGT running Nepro 1.8 @10ml/hr. Lockett catheter draining doretha urine. patient bathed, repositioned and oral care provided.
--- NOTE | 2019-12-25 01:08 | Cardiology Progress Note ---
Subjective DATE OF SERVICE: Dec 24, 2019 Doing poorly - remains in ICU. Monitor: AFIb Persisting respiratory acidosis req'd intubation and mech ventilation Had coffee ground material in NGTube and hematoma on right leg; anti- coagulation was stopped yesterday Venous Duplex: negative for DVT Renal fxn and free water deficit still impaired Objective Last 24 Hour Vital Signs Date Time Temp Pulse Resp B/P (MAP) Pulse Ox O2 Delivery O2 Flow Rate FiO2 12/25/19 00:00 92 101/62 12/24/19 23:46 80 16 40 12/24/19 23:00 82 16 143/64 (90) 100 12/24/19 22:00 83 16 139/49 (79) 100 12/24/19 21:17 16 137/59 Mechanical Ventilator 40 12/24/19 21:00 88 16 142/66 (91) 98 12/24/19 21:00 43 137/59 12/24/19 20:29 61 17 40 12/24/19 20:00 99.8 79 16 130/57 (81) 98 12/24/19 20:00 Mechanical Ventilator 12/24/19 20:00 40 12/24/19 19:00 107 16 148/59 (88) 96 12/24/19 19:00 16 148/59 Endotracheal Tube 50 12/24/19 18:32 120 154/101 12/24/19 18:00 23 154/101 Endotracheal Tube 50 12/24/19 18:00 120 23 154/101 (118) 97 12/24/19 17:00 14 140/67 Endotracheal Tube 50 12/24/19 17:00 107 14 140/67 (91) 99 12/24/19 16:00 99.5 114 23 133/119 (124) 91 12/24/19 16:00 23 113/119 Endotracheal Tube 50 12/24/19 16:00 Mechanical Ventilator 12/24/19 16:00 108 12/24/19 16:00 50 12/24/19 15:31 107 12/24/19 15:00 109 22 131/65 (87) 99 12/24/19 15:00 22 131/65 Endotracheal Tube 40 12/24/19 14:59 120 19 45 12/24/19 14:45 24 128/56 Endotracheal Tube 40 12/24/19 14:30 26 119/57 Endotracheal Tube 40 12/24/19 14:16 115 24 98/76 90 12/24/19 14:15 19 136/59 Endotracheal Tube 40 12/24/19 14:00 114 22 127/84 (98) 94 12/24/19 14:00 22 126/51 Endotracheal Tube 40 12/24/19 13:45 19 106/84 Endotracheal Tube 40 12/24/19 13:30 28 140/48 Endotracheal Tube 40 12/24/19 13:27 115 24 98/76 90 12/24/19 13:15 20 98/76 Endotracheal Tube 40 12/24/19 13:00 115 24 89/53 (65) 90 12/24/19 13:00 24 98/76 Endotracheal Tube 40 12/24/19 12:45 15 89/53 Endotracheal Tube 40 12/24/19 12:30 13 95/77 Endotracheal Tube 40 12/24/19 12:15 26 108/37 Endotracheal Tube 40 12/24/19 12:00 Mechanical Ventilator 12/24/19 12:00 40 12/24/19 12:00 24 93/74 Endotracheal Tube 40 12/24/19 12:00 99.3 99 24 93/74 (80) 91 12/24/19 11:53 114 12/24/19 11:45 23 126/66 Endotracheal Tube 40 12/24/19 11:40 117 126/57 12/24/19 11:30 17 125/57 Endotracheal Tube 40 12/24/19 11:15 20 111/67 Endotracheal Tube 40 12/24/19 11:00 24 92/51 Endotracheal Tube 40 12/24/19 11:00 100.3 111 22 92/51 (65) 94 12/24/19 10:52 107 21 97 Mechanical Ventilator 40 12/24/19 10:49 106 19 40 12/24/19 10:40 100.3 12/24/19 10:05 19 92/78 Endotracheal Tube 55 12/24/19 10:00 94 20 94/60 (71) 96 12/24/19 09:05 13 91/46 Endotracheal Tube 55 12/24/19 09:00 92 15 98/45 (62) 98 12/24/19 08:19 105 118/48 12/24/19 08:05 14 118/48 Endotracheal Tube 55 12/24/19 08:00 100.6 105 20 115/50 (71) 100 12/24/19 08:00 Mechanical Ventilator 12/24/19 07:47 108 12/24/19 07:40 100 Mechanical Ventilator 100 12/24/19 07:37 89 16 55 12/24/19 07:05 16 103/64 Mechanical Ventilator 40 12/24/19 07:00 107 18 119/54 (75) 99 12/24/19 06:26 103 118/70 12/24/19 06:05 18 121/68 Mechanical Ventilator 55 12/24/19 06:00 106 18 118/70 (86) 100 12/24/19 05:05 17 121/68 Mechanical Ventilator 55 12/24/19 05:00 100.7 103 19 121/68 (85) 83 12/24/19 04:05 16 110/67 Mechanical Ventilator 55 12/24/19 04:00 98 18 110/67 (81) 100 12/24/19 04:00 Mechanical Ventilator 12/24/19 04:00 104 12/24/19 03:05 16 107/69 Mechanical Ventilator 55 12/24/19 03:00 100 16 55 12/24/19 03:00 87 19 94/52 (66) 99 12/24/19 02:45 88 17 92/54 (67) 100 12/24/19 02:30 84 16 105/49 (67) 99 12/24/19 02:15 84 15 104/59 (74) 100 12/24/19 02:05 18 102/49 Mechanical Ventilator 55 12/24/19 02:00 85 17 102/49 (66) 99 12/24/19 01:50 16 101/82 Mechanical Ventilator 55 12/24/19 01:45 86 18 107/54 (71) 97 12/24/19 01:35 17 107/54 Mechanical Ventilator 55 12/24/19 01:30 80 18 110/61 (77) 97 12/24/19 01:20 18 115/100 Mechanical Ventilator 55 12/24/19 01:15 75 16 101/82 (88) 98 ROS: unchanged from 12/12/19 HEENT: Orally intubated, Mechanically Ventilated, Thin secretions ET Tube, other - NGtube LUNGS: diminished breath sounds CARDIAC: normal S1 and S2, irregularly irregular ABDOMEN: other - obese EXTREMITIES: moderate edema - mostly non pitting, other - hematoma right leg Laboratory Tests Test 12/24/19 06:17 12/24/19 07:37 12/24/19 16:10 12/24/19 20:43 White Blood Count 7.3 K/UL (4.8-10.8) Red Blood Count 2.27 M/UL (4.20-5.40) L Hemoglobin 6.2 G/DL (12.0-16.0) *L Hematocrit 20.3 % (37.0-47.0) L Mean Corpuscular Volume 89 FL (80-99) Mean Corpuscular Hemoglobin 27.3 PG (27.0-31.0) Mean Corpuscular Hemoglobin Concent 30.6 G/DL (32.0-36.0) L Red Cell Distribution Width 16.8 % (11.6-14.8) H Platelet Count 103 K/UL (150-450) L Mean Platelet Volume 6.8 FL (6.5-10.1) Neutrophils (%) (Auto) % (45.0-75.0) Lymphocytes (%) (Auto) % (20.0-45.0) Monocytes (%) (Auto) % (1.0-10.0) Eosinophils (%) (Auto) % (0.0-3.0) Basophils (%) (Auto) % (0.0-2.0) Differential Total Cells Counted 100 Neutrophils % (Manual) 76 % (45-75) H Lymphocytes % (Manual) 20 % (20-45) Monocytes % (Manual) 4 % (1-10) Eosinophils % (Manual) 0 % (0-3) Basophils % (Manual) 0 % (0-2) Band Neutrophils 0 % (0-8) Nucleated Red Blood Cells 3 /100 WBC Platelet Estimate Decreased L Platelet Morphology Normal Hypochromasia 4+ Anisocytosis 1+ Prothrombin Time 11.8 SEC (9.30-11.50) H Prothromb Time International Ratio 1.1 (0.9-1.1) Activated Partial Thromboplast Time 21 SEC (23-33) L Sodium Level 147 MMOL/L (136-145) H Potassium Level 5.3 MMOL/L (3.5-5.1) H Chloride Level 112 MMOL/L (98-107) H Carbon Dioxide Level 31 MMOL/L (21-32) Anion Gap 4 mmol/L (5-15) L Blood Urea Nitrogen 72 mg/dL (7-18) H Creatinine 2.1 MG/DL (0.55-1.30) H Estimat Glomerular Filtration Rate 23.5 mL/min (>60) Glucose Level 84 MG/DL (74-106) Calcium Level 8.7 MG/DL (8.5-10.1) Ferritin 729 NG/ML (8-388) H Total Bilirubin 0.7 MG/DL (0.2-1.0) Direct Bilirubin 0.4 MG/DL (0.0-0.3) H Aspartate Amino Transf (AST/SGOT) 18 U/L (15-37) Alanine Aminotransferase (ALT/SGPT) 24 U/L (12-78) Alkaline Phosphatase 68 U/L (46-116) Troponin I 0.001 ng/mL (0.000-0.056) C-Reactive Protein, Quantitative 15.6 mg/dL (0.00-0.90) H Total Protein 6.3 G/DL (6.4-8.2) L Albumin 1.9 G/DL (3.4-5.0) L Globulin 5.1 g/dL Albumin/Globulin Ratio 0.4 (1.0-2.7) L Triglycerides Level 107 MG/DL (30-150) Arterial Blood pH 7.426 (7.350-7.450) Arterial Blood Partial Pressure CO2 47.8 mmHg (35.0-45.0) H Arterial Blood Partial Pressure O2 81.6 mmHg (75.0-100.0) Arterial Blood HCO3 30.7 mmol/L (22.0-26.0) H Arterial Blood Oxygen Saturation 95.0 % (95-100) Arterial Blood Base Excess 5.8 (-2-2) H Eugene Test Positive Interleukin 6 (IL-6) Pending POC Whole Blood Glucose 174 MG/DL (74-106) H Microbiology Date/Time Source Procedure Growth Status 12/23/19 23:50 Nasopharynx SARS-CoV-2 RdRp Gene Assay - Final Complete Assessment/Plan Assessment/Plan CRITICAL AND GUARDED Acute respiratory failure Acute on chronic respiratory acidosis AFiB with RVR CHF, ac/chr diast - compensated BLE edema UTI with sepsis obesity COPD with bronchospasm Acute renal failure - worsening Pleural effusion GI bleeding Acute diastolic CHF Vent support Monitor acid/base parameters. Antimicrobials Titrate rate-control meds - hold digitalis for elevated levels. Maintain diltiazem and metoprolol. DC apixaban - hold anticoagulation due to GI bleeding. Hypotonic IVF until po intake improves and free water deficit corrected. Continued playground monitor Diuresis advanced Thorocentesis under consideration. Jerome Meek MD Dec 25, 2019 01:08
--- NOTE | 2019-12-25 02:00 | NUR ---
NURSE NOTES: patient sedated to RASS -2, opens eyes to voice five to ten seconds. patient with 7.5 ETT at 23cm lipline on ventilator AC 16 TV 600 FiO2 40% PEEP 5. BP115/65 HR75 Afib on monitor. left and right hand #20 PIV running Fentanyl 200mcg/hr, D10W @50ml/hr, asymptomatic. patient with right nare NGT running Nepro 1.8 @10ml/hr. Lockett catheter draining doretha urine. patient repositioned and oral care provided.
[2019-12-25] MEDS: Meropenem 500 MG in NS 55 ML IVPB SCH ×2 (03:57→16:13)
--- NOTE | 2019-12-25 04:00 | NUR ---
NURSE NOTES: patient sedated to RASS -2, opens eyes to voice five to ten seconds. patient with 7.5 ETT at 23cm lipline on ventilator AC 16 TV 600 FiO2 40% PEEP 5. BP117/55 HR78 Afib on monitor. left and right hand #20 PIV running Fentanyl 200mcg/hr, D10W @50ml/hr, asymptomatic. patient with right nare NGT running Nepro 1.8 @10ml/hr. Lockett catheter draining doretha urine. patient repositioned and oral care provided.
[2019-12-25] MEDS: Dextrose 10% 1,000 ML IV SCH (05:24)
[2019-12-25] MEDS: NovoLOG Insulin Flexpen SUBQ SCH ×4 (05:24→20:08)
[2019-12-25] MEDS: dilTIAZem HCl 90mg tab NG SCH ×5 (05:24→23:34)
[2019-12-25 05:38] LABS: HEMATOCRIT 24.2 % (37.0-47.0); HEMOGLOBIN 7.8 G/DL (12.0-16.0); MEAN CORPUSCULAR VOLUME 86 FL (80-99); PLATELET COUNT 145 K/UL (150-450); RED BLOOD COUNT 2.81 M/UL (4.20-5.40); RED CELL DISTRIBUTION WIDTH 15.6 % (11.6-14.8); WHITE BLOOD COUNT 7.2 K/UL (4.8-10.8)
--- NOTE | 2019-12-25 06:00 | NUR ---
NURSE NOTES: patient sedated to RASS -2, opens eyes to voice five to ten seconds. patient with 7.5 ETT at 23cm lipline on ventilator AC 16 TV 600 FiO2 40% PEEP 5. BP117/55 HR78 Afib on monitor, temp 100.5F axillary, ice packs applied. left and right hand #20 PIV running Fentanyl 200mcg/hr, D10W @50ml/hr, asymptomatic. patient with right nare NGT running Nepro 1.8 @10ml/hr. Lockett catheter draining doretha urine. generalized extremity edema noted with left knee ecchymosis, right knee hematoma with open dry blisters, sacral and bilateral heel DTPI noted. patient repositioned and oral care provided.
[2019-12-25 06:22] LABS: ALBUMIN/GLOBULIN RATIO 0.5 (1.0-2.7); BILIRUBIN,TOTAL 0.5 MG/DL (0.2-1.0); CALCIUM 8.9 MG/DL (8.5-10.1); CREATININE 1.8 MG/DL (0.55-1.30)
[2019-12-25 06:25] LABS: POTASSIUM 7.5 MMOL/L (3.5-5.1)
--- NOTE | 2019-12-25 06:30 | NUR ---
NURSE NOTES: Paged Dr. Grant to report abnormal lab value elevated potassium, message left. awaiting call back.
--- NOTE | 2019-12-25 07:00 | NUR ---
NURSE HAND-OFF REPORT: Latest Vital Signs: Temperature 100.4 , Pulse 77 , B/P 107 /55 , Respiratory Rate 16 , O2 SAT 96 , Mechanical Ventilator, O2 Flow Rate . Vital Sign Comment: temp 100.4F axillary with ice packs on EKG Rhythm: Atrial Fibrillation Rhythm change?: N Notified?: Elizabeth Meek MD Response: Latest Abreu Fall Score: 75 Fall Risk: High Risk Safety Measures: Call light Within Reach, Bed Alarm Zone 2, Side Rails Side Rails x3, Bed position Low and Locked. Fall Precautions: Yellow Socks Report given to NOEL Thompson. endorsed plan of care.
--- NOTE | 2019-12-25 07:01 | NUR ---
NURSE NOTES: Received patient from Cathie COHEN. Patient is sedated RASS -2. A. Fib on the heart monitor, HR 66-70. Receiving oxygen via ET tube 7.5 23cm at the gum line, vent settings: AC 16, TV 600, FiO2 40%, PEEP 5. Right Nares NGT is intact and receiving Nepro at 10cc/hr. IV site is Right hand 20g receiving Fentanyl at 30mcg/hr and left hand 20g receiving D10W at 50cc/hr. Lockett catheter is intact and draining. Bed is locked, placed in lowest position, side rails up x3, bed alarm on, head of bed elevated. Will continue to monitor.
--- NOTE | 2019-12-25 07:28 | General Progress Note ---
Assessment/Plan Problem List: (1) CKD (chronic kidney disease) stage 3, GFR 30-59 ml/min ICD Codes: N18.3 - Chronic kidney disease, stage 3 (moderate) SNOMED: 167420837 (2) COPD (chronic obstructive pulmonary disease) ICD Codes: J44.9 - Chronic obstructive pulmonary disease, unspecified SNOMED: 11685999 (3) Smoker ICD Codes: F17.200 - Nicotine dependence, unspecified, uncomplicated SNOMED: 98259845 (4) GERD (gastroesophageal reflux disease) ICD Codes: K21.9 - Gastro-esophageal reflux disease without esophagitis SNOMED: 607728669 (5) Atrial fibrillation with RVR ICD Codes: I48.91 - Unspecified atrial fibrillation SNOMED: 776160313416921 Status: stable Assessment/Plan: ngtf ppi bid>>will dc given Covid add pepcid fu H&H monitor labs bowel regimen fu labs fu cardiology recs icu care Subjective ROS Limited/Unobtainable: No Allergies: Coded Allergies: ERYTHROMYCIN BASE (Verified Allergy, Severe, 12/12/19) HALOPERIDOL (Verified Allergy, Unknown, 12/12/19) VANCOMYCIN (Unverified Adverse Reaction, Intermediate, Shortness of Breath , 12/12/19) Objective Last 24 Hour Vital Signs Date Time Temp Pulse Resp B/P (MAP) Pulse Ox O2 Delivery O2 Flow Rate FiO2 12/25/19 07:17 97 16 40 12/25/19 07:00 16 90/53 Mechanical Ventilator 40 12/25/19 07:00 67 16 90/53 (65) 93 12/25/19 06:00 77 16 107/55 (72) 96 12/25/19 06:00 16 107/55 Mechanical Ventilator 40 12/25/19 05:24 82 124/51 12/25/19 05:00 16 108/68 Mechanical Ventilator 40 12/25/19 05:00 81 16 108/68 (81) 95 12/25/19 04:00 40 12/25/19 04:00 Mechanical Ventilator 12/25/19 04:00 16 122/53 Mechanical Ventilator 40 12/25/19 04:00 93 12/25/19 04:00 100.4 78 16 117/55 (75) 96 12/25/19 03:51 81 16 40 12/25/19 03:00 83 16 115/55 (75) 97 12/25/19 03:00 16 107/48 Mechanical Ventilator 40 12/25/19 02:00 16 119/66 Mechanical Ventilator 40 12/25/19 02:00 75 16 115/65 (82) 98 12/25/19 01:00 91 16 112/49 (70) 98 12/25/19 01:00 16 112/49 Mechanical Ventilator 40 12/25/19 00:00 100.1 80 16 142/48 (79) 100 12/25/19 00:00 16 144/60 Mechanical Ventilator 40 12/25/19 00:00 92 101/62 12/25/19 00:00 Mechanical Ventilator 12/25/19 00:00 40 12/25/19 00:00 78 12/24/19 23:46 80 16 40 12/24/19 23:00 82 16 143/64 (90) 100 12/24/19 23:00 16 148/55 Mechanical Ventilator 40 12/24/19 22:00 16 141/64 Mechanical Ventilator 40 12/24/19 22:00 83 16 139/49 (79) 100 12/24/19 21:17 16 137/59 Mechanical Ventilator 40 12/24/19 21:00 88 16 142/66 (91) 98 12/24/19 21:00 16 142/66 Mechanical Ventilator 40 12/24/19 21:00 43 137/59 12/24/19 20:29 61 17 40 12/24/19 20:00 86 12/24/19 20:00 99.8 79 16 130/57 (81) 98 12/24/19 20:00 Mechanical Ventilator 12/24/19 20:00 16 144/60 Mechanical Ventilator 40 12/24/19 20:00 40 12/24/19 19:00 107 16 148/59 (88) 96 12/24/19 19:00 16 148/59 Endotracheal Tube 50 12/24/19 18:32 120 154/101 12/24/19 18:00 23 154/101 Endotracheal Tube 50 12/24/19 18:00 120 23 154/101 (118) 97 12/24/19 17:00 14 140/67 Endotracheal Tube 50 12/24/19 17:00 107 14 140/67 (91) 99 12/24/19 16:00 99.5 114 23 133/119 (124) 91 12/24/19 16:00 23 113/119 Endotracheal Tube 50 12/24/19 16:00 Mechanical Ventilator 12/24/19 16:00 108 12/24/19 16:00 50 12/24/19 15:31 107 12/24/19 15:00 109 22 131/65 (87) 99 12/24/19 15:00 22 131/65 Endotracheal Tube 40 12/24/19 14:59 120 19 45 12/24/19 14:45 24 128/56 Endotracheal Tube 40 12/24/19 14:30 26 119/57 Endotracheal Tube 40 12/24/19 14:16 115 24 98/76 90 12/24/19 14:15 19 136/59 Endotracheal Tube 40 12/24/19 14:00 114 22 127/84 (98) 94 12/24/19 14:00 22 126/51 Endotracheal Tube 40 12/24/19 13:45 19 106/84 Endotracheal Tube 40 12/24/19 13:30 28 140/48 Endotracheal Tube 40 12/24/19 13:27 115 24 98/76 90 12/24/19 13:15 20 98/76 Endotracheal Tube 40 12/24/19 13:00 115 24 89/53 (65) 90 12/24/19 13:00 24 98/76 Endotracheal Tube 40 12/24/19 12:45 15 89/53 Endotracheal Tube 40 12/24/19 12:30 13 95/77 Endotracheal Tube 40 12/24/19 12:15 26 108/37 Endotracheal Tube 40 12/24/19 12:00 Mechanical Ventilator 12/24/19 12:00 40 12/24/19 12:00 24 93/74 Endotracheal Tube 40 12/24/19 12:00 99.3 99 24 93/74 (80) 91 12/24/19 11:53 114 12/24/19 11:45 23 126/66 Endotracheal Tube 40 12/24/19 11:40 117 126/57 12/24/19 11:30 17 125/57 Endotracheal Tube 40 12/24/19 11:15 20 111/67 Endotracheal Tube 40 12/24/19 11:00 24 92/51 Endotracheal Tube 40 12/24/19 11:00 100.3 111 22 92/51 (65) 94 12/24/19 10:52 107 21 97 Mechanical Ventilator 40 12/24/19 10:49 106 19 40 12/24/19 10:40 100.3 12/24/19 10:05 19 92/78 Endotracheal Tube 55 12/24/19 10:00 94 20 94/60 (71) 96 12/24/19 09:05 13 91/46 Endotracheal Tube 55 12/24/19 09:00 92 15 98/45 (62) 98 12/24/19 08:19 105 118/48 12/24/19 08:05 14 118/48 Endotracheal Tube 55 12/24/19 08:00 100.6 105 20 115/50 (71) 100 12/24/19 08:00 Mechanical Ventilator 12/24/19 07:47 108 12/24/19 07:40 100 Mechanical Ventilator 100 12/24/19 07:37 89 16 55 Intake and Output 12/24/19 12/25/19 19:00 07:00 Intake Total 1622.83 ml 1859.3333 ml Output Total 550 ml 1415 ml Balance 1072.83 ml 444.3333 ml IV Total 1372.83 ml 1739.3333 ml Tube Feeding 120 ml Blood Product 250 ml Output Urine Total 550 ml 1415 ml Laboratory Tests 12/24/19 07:37: Arterial Blood pH 7.426, Arterial Blood Partial Pressure CO2 47.8H, Arterial Blood Partial Pressure O2 81.6, Arterial Blood HCO3 30.7H, Arterial Blood Oxygen Saturation 95.0, Arterial Blood Base Excess 5.8H, Eugene Test Positive 12/24/19 16:10: Interleukin 6 (IL-6) [Pending] 12/24/19 20:43: POC Whole Blood Glucose 174H 12/25/19 04:35: White Blood Count 7.2, Red Blood Count 2.81L, Hemoglobin 7.8L, Hematocrit 24.2L , Mean Corpuscular Volume 86, Mean Corpuscular Hemoglobin 27.8, Mean Corpuscular Hemoglobin Concent 32.4, Red Cell Distribution Width 15.6H, Platelet Count 145L, Mean Platelet Volume 6.8, Neutrophils (%) (Auto) , Lymphocytes (%) (Auto) , Monocytes (%) (Auto) , Eosinophils (%) (Auto) , Basophils (%) (Auto) , D-Dimer [Pending], Sodium Level 149H, Potassium Level 7.5 *H, Chloride Level 113H, Carbon Dioxide Level 29, Anion Gap 7, Blood Urea Nitrogen 64H, Creatinine 1.8H, Estimat Glomerular Filtration Rate 28.0, Glucose Level 96, Calcium Level 8.9, Ferritin 629H, Total Bilirubin 0.5, Direct Bilirubin 0.3, Aspartate Amino Transf (AST/SGOT) 21, Alanine Aminotransferase ( ALT/SGPT) 24, Alkaline Phosphatase 78, Lactate Dehydrogenase 303H, C-Reactive Protein, Quantitative 26.3H, Total Protein 6.4, Albumin 2.0L, Globulin 4.4, Albumin/Globulin Ratio 0.5L 12/25/19 05:24: POC Whole Blood Glucose [Pending] Height (Feet): 5 Height (Inches): 6.00 Weight (Pounds): 298 General Appearance: lethargic EENT: normal ENT inspection Neck: supple Cardiovascular: normal rate Respiratory/Chest: decreased breath sounds Abdomen: hypoactive bowel sounds Extremities: non-tender Mervin Victoria MD Dec 25, 2019 07:28
--- NOTE | 2019-12-25 07:48 | NUR ---
NURSE NOTES: Called Dr. Meek's office, spoke to covering MD Dr. Ribeiro, reported D-dimer level of 4.61, no new orders received.
[2019-12-25] MEDS: dexAMETHasone 10mg/ml Inj IV SCH (08:09)
[2019-12-25] MEDS: Docusate 100mg/10ml Liq NG SCH ×2 (08:09→17:41)
[2019-12-25] MEDS: LORazepam Inj 2mg/ml 1ml IV PRN ×5 (08:10→23:34)
[2019-12-25] MEDS: Micafungin 100 MG in NS 110 ML IVPB SCH (08:11)
[2019-12-25] MEDS: Acetaminophen 650mg/20.3ml NG PRN ×3 (08:12→20:06)
[2019-12-25] MEDS: Metoprolol Tartrate 50mg tab NG SCH ×2 (08:12→20:07)
[2019-12-25] MEDS: Lactulose 20gm/30ml UDC ORAL SCH ×2 (08:12→12:05)
[2019-12-25] MEDS: Enoxaparin 60mg Inj SUBQ SCH (08:13)
[2019-12-25] MEDS: Bacitracin Oint 15gm Tube TOPIC SCH ×2 (08:13→17:42)
--- NOTE | 2019-12-25 08:48 | NUR ---
NURSE NOTES: Medications given as prescribed, Lovenox held due to low Hemoglobin levels, no adverse reaction noted. Turned and repositioned patient. Patient's temperature read 101.3 degrees Fahrenheit, prescribed Tylenol given and ice packs placed on patient.
[2019-12-25] MEDS: Polymyxin B Sulfate 500,000 units in D5W 550ml IV SCH ×2 (09:37→20:06)
[2019-12-25] MEDS: fentaNYL 2500mcg/NS 250ml 250 ML IV SCH ×2 (10:01→23:33)
--- NOTE | 2019-12-25 10:24 | Pulmonolgy Critical Care Note ---
Luz Bowen STATIONS SUPERINTENDENT 12/25/19 1024: Critical Care - Asmt/Plan Assessment/Plan: ASSESSMENT acute hypoxemic hypercapnic resp failure, requiring intubation 12/22 COVID 19 PNA sepsis fungemia UTI with E coli ESBL UTI VRE possible aspiration PNA COPD Bronchospasm Atrial fibrillation with rapid ventricular response Congestive heart failure Acute renal failure on CKD Severe anemia Probable GI bleeding Status post ground fall Tobacco dependency Morbid obesity probably GARY Homeless R knee edema and hematoma, likely sprain /strain post fall PLAN OF CARE ICU intubated 12/22 ABG stable titrate FiO2 to keep sat above 92% fup with CXR and ABG MDI Albuterol in line with vent sedation with Fentanyl gtt and Ativan prn DVT prophylaxis with Lovenox prior Venous Duplex BLE -NGT COVID 19 by PCR 12/22 positive isolation Decadron 6 mg IV IL 6 pending ,CRP 15.6, ferritin 769, fup with inflammatory markers CRP up to 26.3, ferritin down to 629 on diuresis with Lasix monitor volumes closely rate control- per cardio recs: monitor volumes pro BNP trending down ECHO with pEF no evidence of WMA GI prophylaxis with PPI bid s/p Venofer x 2 s/p 2 u PRBC 12/22, Hgb up to 7.8 monitor HH with goal to keep Hgb >7 GI procedure when stable renal US no hydro, BL nonobstructive stones s/p IV hydration, now resumed again per nephro monitor renal parameters, lytes , e/lyte management as per nephro recs UCX 12/11 + E coli ESBL, BCX 12/16 1/2 + yeast, fup with yeast ID, ? source BCX 12/17 NGTD UCX 12/16 VRE SCX 12/19 Staph aureus, ACB MDR now on meropenem , micafungin , Polymyxin and Zyvox -as per ID recs , prior X ray R knee given fall 12/15 , large hematoma, swelling-no fx or dislocation ice R knee and elevate CT head no acute IC pathology fall precautions prior declined Nicotine patch discussion on weight loss if receptive - not at this time; anxious and wants to go home pain management anxiolytic prn SW consult for placement case discussed and evaluated by supervising physician ivy mccarty for a consult! Critical Care - Objective Last 24 Hour Vital Signs Date Time Temp Pulse Resp B/P (MAP) Pulse Ox O2 Delivery O2 Flow Rate FiO2 12/25/19 10:01 16 105/59 Endotracheal Tube 12.0 50 12/25/19 09:00 16 89/47 Endotracheal Tube 50 12/25/19 09:00 101.2 74 16 81/37 (52) 98 12/25/19 08:47 101.2 12/25/19 08:46 105 16 163/92 93 12/25/19 08:12 105 163/92 12/25/19 08:10 97 16 90/53 93 12/25/19 08:00 Mechanical Ventilator 12/25/19 08:00 50 12/25/19 08:00 18 163/92 Endotracheal Tube 50 12/25/19 08:00 101.3 131 18 163/92 (115) 93 12/25/19 07:46 117 12/25/19 07:17 97 16 40 12/25/19 07:00 16 90/53 Mechanical Ventilator 40 12/25/19 07:00 67 16 90/53 (65) 93 12/25/19 06:00 77 16 107/55 (72) 96 12/25/19 06:00 16 107/55 Mechanical Ventilator 40 12/25/19 05:24 82 124/51 12/25/19 05:00 16 108/68 Mechanical Ventilator 40 12/25/19 05:00 81 16 108/68 (81) 95 12/25/19 04:00 40 12/25/19 04:00 Mechanical Ventilator 12/25/19 04:00 16 122/53 Mechanical Ventilator 40 12/25/19 04:00 93 12/25/19 04:00 100.4 78 16 117/55 (75) 96 12/25/19 03:51 81 16 40 12/25/19 03:00 83 16 115/55 (75) 97 12/25/19 03:00 16 107/48 Mechanical Ventilator 40 12/25/19 02:00 16 119/66 Mechanical Ventilator 40 12/25/19 02:00 75 16 115/65 (82) 98 12/25/19 01:00 91 16 112/49 (70) 98 12/25/19 01:00 16 112/49 Mechanical Ventilator 40 12/25/19 00:00 100.1 80 16 142/48 (79) 100 12/25/19 00:00 16 144/60 Mechanical Ventilator 40 12/25/19 00:00 92 101/62 12/25/19 00:00 Mechanical Ventilator 12/25/19 00:00 40 12/25/19 00:00 78 12/24/19 23:46 80 16 40 12/24/19 23:00 82 16 143/64 (90) 100 12/24/19 23:00 16 148/55 Mechanical Ventilator 40 12/24/19 22:00 16 141/64 Mechanical Ventilator 40 12/24/19 22:00 83 16 139/49 (79) 100 12/24/19 21:17 16 137/59 Mechanical Ventilator 40 12/24/19 21:00 88 16 142/66 (91) 98 12/24/19 21:00 16 142/66 Mechanical Ventilator 40 12/24/19 21:00 43 137/59 12/24/19 20:29 61 17 40 12/24/19 20:00 86 12/24/19 20:00 99.8 79 16 130/57 (81) 98 12/24/19 20:00 Mechanical Ventilator 12/24/19 20:00 16 144/60 Mechanical Ventilator 40 12/24/19 20:00 40 12/24/19 19:00 107 16 148/59 (88) 96 12/24/19 19:00 16 148/59 Endotracheal Tube 50 12/24/19 18:32 120 154/101 12/24/19 18:00 23 154/101 Endotracheal Tube 50 12/24/19 18:00 120 23 154/101 (118) 97 12/24/19 17:00 14 140/67 Endotracheal Tube 50 12/24/19 17:00 107 14 140/67 (91) 99 12/24/19 16:00 99.5 114 23 133/119 (124) 91 12/24/19 16:00 23 113/119 Endotracheal Tube 50 12/24/19 16:00 Mechanical Ventilator 12/24/19 16:00 108 12/24/19 16:00 50 12/24/19 15:31 107 12/24/19 15:00 109 22 131/65 (87) 99 12/24/19 15:00 22 131/65 Endotracheal Tube 40 12/24/19 14:59 120 19 45 12/24/19 14:45 24 128/56 Endotracheal Tube 40 12/24/19 14:30 26 119/57 Endotracheal Tube 40 12/24/19 14:15 19 136/59 Endotracheal Tube 40 12/24/19 14:00 114 22 127/84 (98) 94 12/24/19 14:00 22 126/51 Endotracheal Tube 40 12/24/19 13:45 19 106/84 Endotracheal Tube 40 12/24/19 13:30 28 140/48 Endotracheal Tube 40 12/24/19 13:27 115 24 98/76 90 12/24/19 13:15 20 98/76 Endotracheal Tube 40 12/24/19 13:00 115 24 89/53 (65) 90 12/24/19 13:00 24 98/76 Endotracheal Tube 40 12/24/19 12:45 15 89/53 Endotracheal Tube 40 12/24/19 12:30 13 95/77 Endotracheal Tube 40 12/24/19 12:15 26 108/37 Endotracheal Tube 40 12/24/19 12:00 Mechanical Ventilator 12/24/19 12:00 40 12/24/19 12:00 24 93/74 Endotracheal Tube 40 12/24/19 12:00 99.3 99 24 93/74 (80) 91 12/24/19 11:53 114 12/24/19 11:45 23 126/66 Endotracheal Tube 40 12/24/19 11:40 117 126/57 12/24/19 11:30 17 125/57 Endotracheal Tube 40 12/24/19 11:15 20 111/67 Endotracheal Tube 40 12/24/19 11:00 24 92/51 Endotracheal Tube 40 12/24/19 11:00 100.3 111 22 92/51 (65) 94 12/24/19 10:52 107 21 97 Mechanical Ventilator 40 12/24/19 10:49 106 19 40 Objective: General Appearance: morbidly obese , sedated, on vent AC 600-16-40% PEEP5 Lines, tubes and drains: peripheral HEENT: normocephalic, atraumatic, anicteric, NGT in , OP with ET Neck: non-tender Respiratory/Chest: chest wall non-tender, no accessory muscle use, decreased breath sounds; Cardiovascular/Chest: irregularly irregular - A fib , tachy, distant heart sounds Abdomen: normal bowel sounds, non tender , obese, soft Extremities: no calf tenderness, moderate edema - +2 BLE, R knee with large hematoma, edema, Skin Exam: warm/dry, multiple tattoos Neurologic: sedated Musculoskeletal: normal muscle bulk Micro: Microbiology Date/Time Source Procedure Growth Status 12/23/19 12:16 Blood Blood Culture - Preliminary NO GROWTH AFTER 24 HOURS Resulted 12/23/19 12:06 Blood Blood Culture - Preliminary NO GROWTH AFTER 24 HOURS Resulted 12/23/19 23:50 Nasopharynx SARS-CoV-2 RdRp Gene Assay - Final Complete Accucheck: 124 Critical Care - Subjective ROS Limited/Unobtainable: Yes Interval Events: fevers FiO2 down to 40%, ABG stable CXR pending for this am on steroids and remdesivir along with abx sedated, on Fentanyl gtt and Ativam prn restarted on diuretic and IVF as per primary Condition: critical EKG Rhythm: Sinus Tachycardia FI02: 50 Vent Support Breath Rate: 16 Vent Support Mode: AC Vent Tidal Volume: 600 Sputum Amount: Small PEEP: 5.0 PIP: 44 Fluids: D5W at 125 Drips: Fentanyl gtt at 200 mcg/hr Tube Feeding Amount: 20 I&O: Intake and Output 12/24/19 12/25/19 19:00 07:00 Intake Total 1622.83 ml 1859.3333 ml Output Total 550 ml 1415 ml Balance 1072.83 ml 444.3333 ml IV Total 1372.83 ml 1739.3333 ml Tube Feeding 120 ml Blood Product 250 ml Output Urine Total 550 ml 1415 ml CXR: 12/23 -Endotracheal tube and NG tube remain in place. Bilateral hazy alveolar densities and [id number] left effusion unchanged. Cardiomegaly and small right effusion also noted. The bony thorax appear unremarkable. No significant change from before ET-Tube: 7.5 ET Position: 24 Colt Keen MD 12/25/19 1513: Critical Care - Asmt/Plan Assessment/Plan: Patient seen and examined with STATIONS SUPERINTENDENT and I agree with the above formulated assessment and plan. Wean vent settings and SBT trials cont remdesivir x 5 days, decadron x 10 days Monitor volumes, cont diuresis Time Spent (Minutes): other - 80 min cc Luz Bowen STATIONS SUPERINTENDENT Dec 25, 2019 10:24 Colt Keen MD Dec 25, 2019 15:13
--- NOTE | 2019-12-25 11:19 | NUR ---
RADIOLOGY DEPT., CHEST X-RAY DONE.-P.DYE
--- NOTE | 2019-12-25 11:47 | NUR ---
NURSE NOTES: 40mg of Lasix scheduled at 1200 held due to another order of 40mg of Lasix administered at 0800.
--- NOTE | 2019-12-25 12:01 | Diagnostic Imaging Report ---
Procedure: XRAY Chest 1v Reason for study: Reason For Exam: SOB Comparison films: 12/24/2019. FINDINGS: The tracheal tube and NG tube remain in place. Vascular prominence and bilateral hazy alveolar densities are unchanged. Cardiomegaly and small effusions also unchanged. The bony thorax appear unremarkable. IMPRESSION: NO SIGNIFICANT CHANGE COMPARED TO PREVIOUS EXAM.
[2019-12-25] MEDS: REMDESIVIR IV SCH ×2 (13:11)
[2019-12-25] MEDS: [UNRECOGNIZED DRUG - OTHER] IV SCH ×2 (13:11)
--- NOTE | 2019-12-25 14:11 | Infectious Diseases Prog Note ---
Assessment/Plan Assessment/Plan ASSESSMENT AND PLAN: 1. hx esbl e.coli uti/pyelonephritis, sepsis, leukocytosis, fevers mrsa and vre colonization, NATALIE, respiratory distress/failure Fungemia - + yeast in blood staph aureus pna/acinetobacter pna VRE uti covid-19 testing + - zyvox, meropenem, polymyxin, micafungin - remdesivir and dexamethasone - monitor labs and chest x-ray, f/u on cultures - icu care, supportive care 2. Chronic kidney failure, acute renal failure. 3. COPD. 4. Pulmonary followup. 5. Renal followup. 6. History of falls. 7. Atrial fibrillation. Cardiology followup. 8. Obesity. 9. Gait disorder. 10. Schizophrenia. 11. Homeless. 12. Allergic to erythromycin, haloperidol, and vancomycin. 13. Social history is negative. 14. Family history is noncontributory. 15. MAR is noted. 16. Case discussed with RN. 17. Continue treatment per Dr. Dumont and consultants. Subjective Constitutional: Reports: fever, other - + vent, no pressors, + fevers HEENT: Reports: congestion Respiratory: Reports: shortness of breath Cardiovascular: Reports: other - no pressors Gastrointestinal/Abdominal: Denies: vomiting, diarrhea Genitourinary: Reports: other - + trivedi Neurologic: Reports: other - lethargic, on vent Psychiatric: Reports: other - NA Skin: Denies: rash Hematologic: Denies: bleeding Musculoskeletal: Reports: other - NA Allergies: Coded Allergies: ERYTHROMYCIN BASE (Verified Allergy, Severe, 12/12/19) HALOPERIDOL (Verified Allergy, Unknown, 12/12/19) VANCOMYCIN (Unverified Adverse Reaction, Intermediate, Shortness of Breath , 12/12/19) Objective Last 24 Hour Vital Signs Date Time Temp Pulse Resp B/P (MAP) Pulse Ox O2 Delivery O2 Flow Rate FiO2 12/25/19 13:39 80 16 108/49 98 12/25/19 13:09 99.9 12/25/19 13:07 80 16 108/49 98 12/25/19 13:01 16 114/63 Endotracheal Tube 50 12/25/19 13:00 77 16 108/49 (68) 99 12/25/19 12:30 80 16 91/47 (62) 98 12/25/19 12:23 80 16 50 12/25/19 12:05 76 123/65 9/15/20 12:01 16 114/63 Endotracheal Tube 50 12/25/19 12:00 50 12/25/19 12:00 80 16 114/63 (80) 99 12/25/19 12:00 Mechanical Ventilator 12/25/19 12:00 80 12/25/19 12:00 101.3 80 16 114/63 (80) 99 12/25/19 11:30 78 16 110/63 (79) 99 12/25/19 11:01 16 120/59 Endotracheal Tube 50 12/25/19 11:00 76 16 120/59 (79) 100 12/25/19 10:01 16 105/59 Endotracheal Tube 12.0 50 12/25/19 10:00 75 16 105/59 (74) 99 12/25/19 10:00 16 105/59 Endotracheal Tube 50 12/25/19 09:00 16 89/47 Endotracheal Tube 50 12/25/19 09:00 101.2 74 16 81/37 (52) 98 12/25/19 08:12 105 163/92 12/25/19 08:10 97 16 90/53 93 12/25/19 08:00 Mechanical Ventilator 12/25/19 08:00 50 12/25/19 08:00 18 163/92 Endotracheal Tube 50 12/25/19 08:00 101.3 131 18 163/92 (115) 93 12/25/19 07:46 117 12/25/19 07:17 97 16 40 12/25/19 07:00 16 90/53 Mechanical Ventilator 40 12/25/19 07:00 67 16 90/53 (65) 93 12/25/19 06:00 77 16 107/55 (72) 96 12/25/19 06:00 16 107/55 Mechanical Ventilator 40 12/25/19 05:24 82 124/51 12/25/19 05:00 16 108/68 Mechanical Ventilator 40 12/25/19 05:00 81 16 108/68 (81) 95 12/25/19 04:00 40 12/25/19 04:00 Mechanical Ventilator 12/25/19 04:00 16 122/53 Mechanical Ventilator 40 12/25/19 04:00 93 12/25/19 04:00 100.4 78 16 117/55 (75) 96 12/25/19 03:51 81 16 40 12/25/19 03:00 83 16 115/55 (75) 97 12/25/19 03:00 16 107/48 Mechanical Ventilator 40 12/25/19 02:00 16 119/66 Mechanical Ventilator 40 12/25/19 02:00 75 16 115/65 (82) 98 12/25/19 01:00 91 16 112/49 (70) 98 12/25/19 01:00 16 112/49 Mechanical Ventilator 40 12/25/19 00:00 100.1 80 16 142/48 (79) 100 12/25/19 00:00 16 144/60 Mechanical Ventilator 40 12/25/19 00:00 92 101/62 12/25/19 00:00 Mechanical Ventilator 12/25/19 00:00 40 12/25/19 00:00 78 12/24/19 23:46 80 16 40 12/24/19 23:00 82 16 143/64 (90) 100 12/24/19 23:00 16 148/55 Mechanical Ventilator 40 12/24/19 22:00 16 141/64 Mechanical Ventilator 40 12/24/19 22:00 83 16 139/49 (79) 100 12/24/19 21:17 16 137/59 Mechanical Ventilator 40 12/24/19 21:00 88 16 142/66 (91) 98 12/24/19 21:00 16 142/66 Mechanical Ventilator 40 12/24/19 21:00 43 137/59 12/24/19 20:29 61 17 40 12/24/19 20:00 86 12/24/19 20:00 99.8 79 16 130/57 (81) 98 12/24/19 20:00 Mechanical Ventilator 12/24/19 20:00 16 144/60 Mechanical Ventilator 40 12/24/19 20:00 40 12/24/19 19:00 107 16 148/59 (88) 96 12/24/19 19:00 16 148/59 Endotracheal Tube 50 12/24/19 18:32 120 154/101 12/24/19 18:00 23 154/101 Endotracheal Tube 50 12/24/19 18:00 120 23 154/101 (118) 97 12/24/19 17:00 14 140/67 Endotracheal Tube 50 12/24/19 17:00 107 14 140/67 (91) 99 12/24/19 16:00 99.5 114 23 133/119 (124) 91 12/24/19 16:00 23 113/119 Endotracheal Tube 50 12/24/19 16:00 Mechanical Ventilator 12/24/19 16:00 108 12/24/19 16:00 50 12/24/19 15:31 107 12/24/19 15:00 109 22 131/65 (87) 99 12/24/19 15:00 22 131/65 Endotracheal Tube 40 12/24/19 14:59 120 19 45 12/24/19 14:45 24 128/56 Endotracheal Tube 40 12/24/19 14:30 26 119/57 Endotracheal Tube 40 12/24/19 14:15 19 136/59 Endotracheal Tube 40 Height (Feet): 5 Height (Inches): 6.00 Weight (Pounds): 298 General Appearance: other - lethargic, on vent HEENT: normocephalic, atraumatic, anicteric, other - oral - intubated Respiratory/Chest: crackles/rales, rhonchi - bilaterally Cardiovascular: normal rate, regular rhythm, no gallop/murmur Abdomen: normal bowel sounds, soft, non tender, no organomegaly, non distended Genitourinary: other - + trivedi - urine slt cloudy Extremities: no cyanosis Skin: no rash Neurologic/Psychiatric: other - lethargic, on vent Lymphatic: no neck adenopathy Musculoskeletal: no effusion Chest x-ray - 11/17/19 - Procedure: XRAY Chest 1v Indication: Shortness of breath Technique: One view of the chest Comparison: 12/17/2019 Findings: The heart is enlarged. There is bilateral interstitial and airspace disease is again demonstrated, probably unchanged allowing for differences in degree of inspiration. Impression: Unchanged, over one day, findings as above. Chest x-ray - 12/21/19 - Procedure: XRAY Chest 1v Indication: Shortness of breath Technique: One view of the chest Comparison: 12/19/2019 Findings: The heart is enlarged. Bilateral extensive infiltrates are again demonstrated, stable to slightly worse allowing for differences in exposure technique. There is suggestion of increasing pleural fluid on the left. Nasogastric tube is again demonstrated. Impression: Stable to worsened bilateral extensive infiltrates, since exam of 2 days prior Increasing left pleural effusion Chest x-ray - 12/23/19 - IMPRESSION: 1. No significant interval change from the prior chest x-ray. 2. Persistent moderate left pleural effusion and mild right pleural effusion. 3. Pulmonary vascular congestion. 4. Persistent opacity in the left lung base, which may represent atelectasis versus pneumonia. Chest x-ray - 12/25/19 - Procedure: XRAY Chest 1v Procedure: XRAY Chest 1v Reason for study: Reason For Exam: SOB Comparison films: 12/24/2019. FINDINGS: The tracheal tube and NG tube remain in place. Vascular prominence and bilateral hazy alveolar densities are unchanged. Cardiomegaly and small effusions also unchanged. The bony thorax appear unremarkable. IMPRESSION: NO SIGNIFICANT CHANGE COMPARED TO PREVIOUS EXAM. Microbiology Date/Time Source Procedure Growth Status 12/23/19 23:50 Nasopharynx SARS-CoV-2 RdRp Gene Assay - Final Complete 12/23/19 12:16 Blood Blood Culture - Preliminary NO GROWTH AFTER 24 HOURS Resulted 12/23/19 12:06 Blood Blood Culture - Preliminary NO GROWTH AFTER 24 HOURS Resulted Laboratory Tests Test 12/24/19 16:10 12/24/19 20:43 12/25/19 04:35 12/25/19 05:24 Interleukin 6 (IL-6) Pending POC Whole Blood Glucose 174 MG/DL (74-106) H Pending White Blood Count 7.2 K/UL (4.8-10.8) Red Blood Count 2.81 M/UL (4.20-5.40) L Hemoglobin 7.8 G/DL (12.0-16.0) L Hematocrit 24.2 % (37.0-47.0) L Mean Corpuscular Volume 86 FL (80-99) Mean Corpuscular Hemoglobin 27.8 PG (27.0-31.0) Mean Corpuscular Hemoglobin Concent 32.4 G/DL (32.0-36.0) Red Cell Distribution Width 15.6 % (11.6-14.8) H Platelet Count 145 K/UL (150-450) L Mean Platelet Volume 6.8 FL (6.5-10.1) Neutrophils (%) (Auto) % (45.0-75.0) Lymphocytes (%) (Auto) % (20.0-45.0) Monocytes (%) (Auto) % (1.0-10.0) Eosinophils (%) (Auto) % (0.0-3.0) Basophils (%) (Auto) % (0.0-2.0) D-Dimer 4.61 mg/L FEU (0.00-0.49) H Sodium Level 149 MMOL/L (136-145) H Potassium Level 7.5 MMOL/L (3.5-5.1) *H Chloride Level 113 MMOL/L (98-107) H Carbon Dioxide Level 29 MMOL/L (21-32) Anion Gap 7 mmol/L (5-15) Blood Urea Nitrogen 64 mg/dL (7-18) H Creatinine 1.8 MG/DL (0.55-1.30) H Estimat Glomerular Filtration Rate 28.0 mL/min (>60) Glucose Level 96 MG/DL (74-106) Calcium Level 8.9 MG/DL (8.5-10.1) Ferritin 629 NG/ML (8-388) H Total Bilirubin 0.5 MG/DL (0.2-1.0) Direct Bilirubin 0.3 MG/DL (0.0-0.3) Aspartate Amino Transf (AST/SGOT) 21 U/L (15-37) Alanine Aminotransferase (ALT/SGPT) 24 U/L (12-78) Alkaline Phosphatase 78 U/L (46-116) Lactate Dehydrogenase 303 U/L (81-234) H C-Reactive Protein, Quantitative 26.3 mg/dL (0.00-0.90) H Total Protein 6.4 G/DL (6.4-8.2) Albumin 2.0 G/DL (3.4-5.0) L Globulin 4.4 g/dL Albumin/Globulin Ratio 0.5 (1.0-2.7) L Test 12/25/19 07:20 Arterial Blood pH 7.454 (7.350-7.450) Arterial Blood Partial Pressure CO2 41.8 mmHg (35.0-45.0) Arterial Blood Partial Pressure O2 74.8 mmHg (75.0-100.0) L Arterial Blood HCO3 28.7 mmol/L (22.0-26.0) H Arterial Blood Oxygen Saturation 93.8 % (95-100) L Arterial Blood Base Excess 4.3 (-2-2) H Eugene Test Positive Current Medications Medications (Trade) Dose Ordered Sig/Shiraz Route PRN Reason Start Time Stop Time Status Last Admin Dose Admin Acetaminophen (Tylenol) 650 mg Q4H PRN NG Temp >100.5 12/22/19 16:00 01/11/20 22:14 12/23/19 13:53 Acetaminophen (Tylenol) 650 mg Q4H PRN NG Mild Pain (Pain Scale 1-3) 12/22/19 16:00 01/11/20 22:14 12/25/19 12:05 Albuterol Sulfate (Proventil MDI) 2 puff Q4H PRN INH Shortness of Breath 12/24/19 10:30 03/23/20 10:29 Bacitracin (Bacitracin 15gm tube) 1 applic BID TOPIC 12/22/19 18:00 03/12/20 08:59 12/25/19 08:13 Chlorhexidine Gluconate (Jessie-Hex 2%) 1 applic DAILY@1999 TOPIC 12/24/19 20:00 03/23/20 19:59 12/24/19 20:29 Clotrimazole (Lotrimin) 1 applic TWICE A DAY TOPIC 12/22/19 18:00 03/12/20 08:59 12/25/19 08:13 Dexamethasone Sodium Phosphate (Decadron 10mg/ ml Inj) 6 mg DAILY IV 12/24/19 09:00 01/03/20 08:59 12/25/19 08:09 Dextrose 1,000 ml @ 125 mls/hr Q8H IV 12/25/19 09:15 01/24/20 09:14 12/25/19 09:38 Dextrose (Dextrose 50%) 25 ml Q30M PRN IV Hypoglycemia 12/23/19 10:45 03/22/20 10:44 Dextrose (Dextrose 50%) 50 ml Q30M PRN IV Hypoglycemia 12/23/19 10:45 03/22/20 10:44 Diltiazem HCl (Cardizem Tab) 90 mg Q6HR NG 12/22/19 18:00 01/13/20 11:59 12/25/19 12:05 Docusate Sodium (Colace) 100 mg BID NG 12/25/19 09:00 01/24/20 08:59 12/25/19 08:09 Enoxaparin Sodium (Lovenox) 60 mg DAILY SUBQ 12/23/19 09:00 03/22/20 08:59 Famotidine (Pepcid I.v.) 20 mg Q12HR IVP 12/25/19 09:00 01/24/20 08:59 12/25/19 08:11 Fentanyl Citrate 250 ml @ 0 mls/hr Q24H IV 12/23/19 22:30 12/25/19 22:00 12/25/19 10:01 Furosemide (Lasix) 40 mg Q6HR IV 12/25/19 12:00 01/24/20 11:59 Heparin Sodium/ Sodium Chloride (Heparin 1000 units/500ml Premix) 1,000 unit ONCE PRN IV PICC LINE 12/24/19 17:15 12/26/19 23:59 Insulin Aspart (NovoLOG) BEFORE MEALS AND HS SUBQ 12/23/19 11:30 03/22/20 11:29 12/25/19 11:19 Lactulose (Cephulac) 20 gm THREE TIMES A DAY ORAL 12/25/19 09:00 01/24/20 08:59 12/25/19 12:05 Lidocaine HCl (Xylocaine 1% 30ml) 30 ml ONCE PRN INJ PICC LINE 12/24/19 17:15 12/26/19 23:59 Linezolid 300 ml @ 300 mls/hr Q12HR IVPB 12/22/19 21:00 12/26/19 20:59 12/25/19 08:10 Lorazepam (Ativan 2mg/ml 1ml) 2 mg Q2H PRN IV For Anxiety 12/24/19 13:30 12/31/19 13:29 12/25/19 13:07 Magnesium Hydroxide (Mom) 30 ml HSPRN PRN NG Constipation 12/22/19 15:15 01/21/20 15:14 Meropenem 500 mg/ Sodium Chloride 55 ml @ 110 mls/hr Q12H IVPB 12/23/19 16:00 12/28/19 15:59 12/25/19 03:57 Metoprolol Tartrate (Lopressor) 50 mg Q12HR NG 12/22/19 21:00 03/18/20 20:59 12/25/19 08:12 Micafungin Sodium 100 mg/Sodium Chloride 110 ml @ 110 mls/hr Q24H IVPB 12/23/19 09:00 12/28/19 08:59 12/25/19 08:11 Miscellaneous Medication (Remdesivir Fact Sheet) 1 ea ONCE PRN MISC Pt currently sedated 12/24/19 10:30 01/03/20 10:29 Nitroglycerin (Ntg) 0.4 mg Q5M PRN SL Prn Chest Pain 12/22/19 15:00 01/11/20 22:14 Ondansetron HCl (Zofran) 4 mg Q6H PRN IVP Nausea & Vomiting 12/22/19 15:15 01/11/20 15:14 Polyethylene Glycol (Miralax) 17 gm BEDTIME NG 12/22/19 21:00 01/18/20 20:59 12/24/19 20:29 Polymyxin B Sulfate 233972 units/Dextrose 550 ml @ 550 mls/hr EVERY 12 HOURS IV 12/23/19 13:00 12/30/19 12:59 12/25/19 09:37 Remdesivir 100 mg/ Sodium Chloride 250 ml @ 250 mls/hr Q24H IV 12/25/19 14:00 01/02/20 14:59 12/25/19 13:11 Risperidone (RisperDAL) 2 mg BEDTIME NG 12/22/19 21:00 02/04/20 20:59 12/24/19 20:29 Aleisha Coronel MD Dec 25, 2019 14:11
[2019-12-25 14:52] LABS: CALCIUM 8.2 MG/DL (8.5-10.1); CREATININE 1.8 MG/DL (0.55-1.30); POTASSIUM 4.4 MMOL/L (3.5-5.1)
--- NOTE | 2019-12-25 15:17 | NUR ---
CASE MANAGEMENT:REVIEW 12/25/19 SI;NOW COVID + PNA . SEVERE ANEMIA E COLI UTI. COPD. ASP PNA. AFIB W/ PVC UNCONTROLLED HR . BLE EDEMA 101.3 131 18 163/92 93% ON MECHANICAL VENT ET TUBE FiO2 50 H/H 7.8/24.2 K+ 7.5 NA+ 149 BUN/CREAT 64/1.8 LDH 303 ALB 2.0 ABC : pH 7.454 pO2 74.8 HCO3 28.7 O2 SAT 93.8 BASE EXCESS 4.3 IS;IV REMDESIVIR X9 BAGS IV FENTANYL PROTOCOL IV D5@125ML/HR IV CARDIZEM Q6HR IV LINEZOLID BID IV POLYMYXIN BID IV MICAFUNGIN IV DECADRON QD IV MEROPENEM BID BLOOD CX ~IN PROCESS PICC LINE PLACEMENT ICU STATUS DCP;FROM [facility] PL[facility]: ISOLATION PRECAUTION STABILIZE RESPIRATORY STATUS FiO2 ADJUSTMENTS
--- NOTE | 2019-12-25 15:25 | NUR ---
NURSE NOTES: Patient seen and assessed by Dr. Keen.
--- NOTE | 2019-12-25 15:26 | NUR ---
*-* INSURANCE *-* UPDATED CLINICALS AND REVIEWS HAVE BEEN FAXED TO: [facility] PH: NEL FARAH [phone] CLINICALS: [phone]
[2019-12-25] MEDS ORDERED: Tubing IV Blood Pump IV ONE (15:39)
[2019-12-25] MEDS ORDERED: Tubing IV Secondary IV ONE (15:39)
[2019-12-25] MEDS ORDERED: NS 275ml ONE (15:39)
--- NOTE | 2019-12-25 18:32 | NUR ---
NURSE NOTES: Bed bath given to patient, placed patient on P200 air mattress.
[2019-12-25 18:39] LABS: APPEARANCE,URINE CLEAR; BILIRUBIN, URINE NEGATIVE (NEGATIVE); COLOR,URINE YELLOW; GLUCOSE, URINE (UA) NEGATIVE (NEGATIVE); KETONES,URINE NEGATIVE (NEGATIVE); LEUKOCYTE ESTERASE ,URINE NEGATIVE (NEGATIVE); NITRITE,URINE NEGATIVE (NEGATIVE); PH,URINE 5 (4.5-8.0); PROTEIN,URINE NEGATIVE (NEGATIVE); UROBILINOGEN,URINE 1 MG/DL (0.0-1.0)
--- NOTE | 2019-12-25 18:39 | Surgery Progress Note ---
Surgery Progress Note Subjective Additional Comments ill appearing agitated on vent edema Objective Last 24 Hour Vital Signs Date Time Temp Pulse Resp B/P (MAP) Pulse Ox O2 Delivery O2 Flow Rate FiO2 12/25/19 18:01 16 86/43 Endotracheal Tube 50 12/25/19 18:00 74 16 87/40 (56) 95 12/25/19 17:56 84 16 102/45 100 12/25/19 17:41 84 102/45 12/25/19 17:30 67 102/45 (64) 12/25/19 17:13 69 16 117/59 100 12/25/19 17:01 45 87/47 Endotracheal Tube 50 12/25/19 17:00 131 147/48 (81) 12/25/19 16:30 72 19 106/54 (71) 98 12/25/19 16:01 22 109/71 Endotracheal Tube 50 12/25/19 16:00 50 12/25/19 16:00 97.7 73 17 102/55 (71) 98 12/25/19 16:00 Mechanical Ventilator 12/25/19 16:00 83 12/25/19 15:28 40 12/25/19 15:27 69 16 50 12/25/19 15:01 17 117/59 Endotracheal Tube 40 12/25/19 15:00 73 17 117/59 (78) 100 12/25/19 14:01 20 104/49 Endotracheal Tube 40 12/25/19 14:00 99.9 64 18 104/49 (67) 99 12/25/19 13:09 99.9 12/25/19 13:07 80 16 108/49 98 12/25/19 13:01 16 114/63 Endotracheal Tube 50 12/25/19 13:00 77 16 108/49 (68) 99 12/25/19 12:30 80 16 91/47 (62) 98 12/25/19 12:23 80 16 50 12/25/19 12:05 76 123/65 12/25/19 12:01 16 114/63 Endotracheal Tube 50 12/25/19 12:00 50 12/25/19 12:00 80 16 114/63 (80) 99 12/25/19 12:00 Mechanical Ventilator 12/25/19 12:00 80 12/25/19 12:00 101.3 80 16 114/63 (80) 99 12/25/19 11:30 78 16 110/63 (79) 99 12/25/19 11:01 16 120/59 Endotracheal Tube 50 12/25/19 11:00 76 16 120/59 (79) 100 12/25/19 10:01 16 105/59 Endotracheal Tube 12.0 50 12/25/19 10:00 75 16 105/59 (74) 99 12/25/19 10:00 16 105/59 Endotracheal Tube 50 12/25/19 09:00 16 89/47 Endotracheal Tube 50 12/25/19 09:00 101.2 74 16 81/37 (52) 98 12/25/19 08:12 105 163/92 12/25/19 08:10 97 16 90/53 93 12/25/19 08:00 Mechanical Ventilator 12/25/19 08:00 50 12/25/19 08:00 18 163/92 Endotracheal Tube 50 12/25/19 08:00 101.3 131 18 163/92 (115) 93 12/25/19 07:46 117 12/25/19 07:17 97 16 40 12/25/19 07:00 16 90/53 Mechanical Ventilator 40 12/25/19 07:00 67 16 90/53 (65) 93 12/25/19 06:00 77 16 107/55 (72) 96 12/25/19 06:00 16 107/55 Mechanical Ventilator 40 12/25/19 05:24 82 124/51 12/25/19 05:00 16 108/68 Mechanical Ventilator 40 12/25/19 05:00 81 16 108/68 (81) 95 12/25/19 04:00 40 12/25/19 04:00 Mechanical Ventilator 12/25/19 04:00 16 122/53 Mechanical Ventilator 40 12/25/19 04:00 93 12/25/19 04:00 100.4 78 16 117/55 (75) 96 12/25/19 03:51 81 16 40 12/25/19 03:00 83 16 115/55 (75) 97 12/25/19 03:00 16 107/48 Mechanical Ventilator 40 12/25/19 02:00 16 119/66 Mechanical Ventilator 40 12/25/19 02:00 75 16 115/65 (82) 98 12/25/19 01:00 91 16 112/49 (70) 98 12/25/19 01:00 16 112/49 Mechanical Ventilator 40 12/25/19 00:00 100.1 80 16 142/48 (79) 100 12/25/19 00:00 16 144/60 Mechanical Ventilator 40 12/25/19 00:00 92 101/62 12/25/19 00:00 Mechanical Ventilator 12/25/19 00:00 40 12/25/19 00:00 78 12/24/19 23:46 80 16 40 12/24/19 23:00 82 16 143/64 (90) 100 12/24/19 23:00 16 148/55 Mechanical Ventilator 40 12/24/19 22:00 16 141/64 Mechanical Ventilator 40 12/24/19 22:00 83 16 139/49 (79) 100 12/24/19 21:17 16 137/59 Mechanical Ventilator 40 12/24/19 21:00 88 16 142/66 (91) 98 12/24/19 21:00 16 142/66 Mechanical Ventilator 40 12/24/19 21:00 43 137/59 12/24/19 20:29 61 17 40 12/24/19 20:00 86 12/24/19 20:00 99.8 79 16 130/57 (81) 98 12/24/19 20:00 Mechanical Ventilator 12/24/19 20:00 16 144/60 Mechanical Ventilator 40 12/24/19 20:00 40 12/24/19 19:00 107 16 148/59 (88) 96 12/24/19 19:00 16 148/59 Endotracheal Tube 50 I&O Intake and Output 12/24/19 12/25/19 19:00 07:00 Intake Total 1622.83 ml 1859.3333 ml Output Total 550 ml 1415 ml Balance 1072.83 ml 444.3333 ml IV Total 1372.83 ml 1739.3333 ml Tube Feeding 120 ml Blood Product 250 ml Output Urine Total 550 ml 1415 ml Dressing: dry Cardiovascular: RSR Respiratory: decreased breath sounds Abdomen: soft, present bowel sounds Extremities: edema, no tenderness, no cyanosis, other Laboratory Tests Test 12/24/19 20:43 12/25/19 04:35 12/25/19 05:24 12/25/19 07:20 POC Whole Blood Glucose 174 MG/DL (74-106) H Pending White Blood Count 7.2 K/UL (4.8-10.8) Red Blood Count 2.81 M/UL (4.20-5.40) L Hemoglobin 7.8 G/DL (12.0-16.0) L Hematocrit 24.2 % (37.0-47.0) L Mean Corpuscular Volume 86 FL (80-99) Mean Corpuscular Hemoglobin 27.8 PG (27.0-31.0) Mean Corpuscular Hemoglobin Concent 32.4 G/DL (32.0-36.0) Red Cell Distribution Width 15.6 % (11.6-14.8) H Platelet Count 145 K/UL (150-450) L Mean Platelet Volume 6.8 FL (6.5-10.1) Neutrophils (%) (Auto) % (45.0-75.0) Lymphocytes (%) (Auto) % (20.0-45.0) Monocytes (%) (Auto) % (1.0-10.0) Eosinophils (%) (Auto) % (0.0-3.0) Basophils (%) (Auto) % (0.0-2.0) D-Dimer 4.61 mg/L FEU (0.00-0.49) H Sodium Level 149 MMOL/L (136-145) H Potassium Level 7.5 MMOL/L (3.5-5.1) *H Chloride Level 113 MMOL/L (98-107) H Carbon Dioxide Level 29 MMOL/L (21-32) Anion Gap 7 mmol/L (5-15) Blood Urea Nitrogen 64 mg/dL (7-18) H Creatinine 1.8 MG/DL (0.55-1.30) H Estimat Glomerular Filtration Rate 28.0 mL/min (>60) Glucose Level 96 MG/DL (74-106) Calcium Level 8.9 MG/DL (8.5-10.1) Ferritin 629 NG/ML (8-388) H Total Bilirubin 0.5 MG/DL (0.2-1.0) Direct Bilirubin 0.3 MG/DL (0.0-0.3) Aspartate Amino Transf (AST/SGOT) 21 U/L (15-37) Alanine Aminotransferase (ALT/SGPT) 24 U/L (12-78) Alkaline Phosphatase 78 U/L (46-116) Lactate Dehydrogenase 303 U/L (81-234) H C-Reactive Protein, Quantitative 26.3 mg/dL (0.00-0.90) H Total Protein 6.4 G/DL (6.4-8.2) Albumin 2.0 G/DL (3.4-5.0) L Globulin 4.4 g/dL Albumin/Globulin Ratio 0.5 (1.0-2.7) L Arterial Blood pH 7.454 (7.350-7.450) Arterial Blood Partial Pressure CO2 41.8 mmHg (35.0-45.0) Arterial Blood Partial Pressure O2 74.8 mmHg (75.0-100.0) L Arterial Blood HCO3 28.7 mmol/L (22.0-26.0) H Arterial Blood Oxygen Saturation 93.8 % (95-100) L Arterial Blood Base Excess 4.3 (-2-2) H [place] Test Positive Test 12/25/19 13:50 12/25/19 17:55 Sodium Level 145 MMOL/L (136-145) Potassium Level 4.4 MMOL/L (3.5-5.1) Chloride Level 110 MMOL/L (98-107) H Carbon Dioxide Level 29 MMOL/L (21-32) Anion Gap 6 mmol/L (5-15) Blood Urea Nitrogen 65 mg/dL (7-18) H Creatinine 1.8 MG/DL (0.55-1.30) H Estimat Glomerular Filtration Rate 28.0 mL/min (>60) Glucose Level 196 MG/DL (74-106) #H Calcium Level 8.2 MG/DL (8.5-10.1) L Urine Color Pending Urine Appearance Pending Urine pH Pending Urine Specific [place] Pending Urine Protein Pending Urine Glucose (UA) Pending Urine Ketones Pending Urine Blood Pending Urine Nitrite Pending Urine Bilirubin Pending Urine Urobilinogen Pending Urine Leukocyte Esterase Pending Plan Problems: (1) Urinary tract infection (2) CHF exacerbation (3) History of schizophrenia (4) Atrial fibrillation with RVR (5) Schizophrenia (6) GERD (gastroesophageal reflux disease) (7) Smoker (8) Atrial fibrillation with rapid ventricular response (9) Lymphadema (10) COPD (chronic obstructive pulmonary disease) (11) CKD (chronic kidney disease) stage 3, GFR 30-59 ml/min (12) NATALIE (acute kidney injury) (13) Dehydration (14) Dysphagia (15) UTI (urinary tract infection) (16) UGI bleed (17) ESBL (extended spectrum beta-lactamase) producing bacteria infection (18) Constipation (19) Lactic acidosis (20) Tinea cruris (21) Onychomycosis (22) Emesis (23) Essential hypertension (24) Anemia (25) Cough (26) Depression (27) Depression (28) Edema (29) Rash (30) Opiate dependence (31) Opiate dependence (32) Opiate dependence (33) Opiate dependence (34) Pyelonephritis (35) Sepsis (36) UTI (urinary tract infection) (37) Nausea and vomiting (38) Abdominal pain Assessment & Plan: [age]-year-old female obese white abdominal pain deep tissue injury identified limited mobility on HD. KUB noted tube in place continue meds feeds Does not seem obstructed We will monitor FINDINGS: Lower thorax: Obscuration of the left costophrenic angle suggestive of pleural effusion. Intraperitoneal space: No free air. Gastrointestinal tract: Unremarkable. No dilation. Bones/joints: Unremarkable. Tubes, lines and devices: The nasogastric tube has the tip at the mid inferior aspect of the gastric body. Other findings: Nonspecific gas pattern. Single frontal view of the abdomen demonstrates tip of the enteric tube and distal side-port projecting over the stomach. Gas is identified within the nondistended large bowel. There is a paucity of small bowel gas seen. Partially visualized left pleural effusion. No other significant interval change. (39) Chest pain (40) Chest pain (41) Nausea (42) Obesity (43) Chronic ulcer of leg (44) Chronic ulcer of leg (45) Chronic ulcer of leg (46) ACS (acute coronary syndrome) (47) Acute chest pain (48) Encounter for dressing change or suture removal (49) Left leg cellulitis (50) Acute encephalopathy (51) Encounter for wound re-check (52) Intractable nausea and vomiting (53) Infection due to ESBL-producing Escherichia coli (54) Chronic venous stasis (55) Change of dressing (56) Change of dressing (57) Change of dressing (58) Change of dressing (59) Change of dressing (60) Change of dressing (61) Change of dressing (62) Change of dressing (63) ESBL urine (64) Lymphadema (65) Lymphedema (66) Lymphedema (67) Lymphedema (68) Lymphedema (69) Lymphedema (70) Lymphedema (71) Lymphedema (72) Lymphedema (73) Open wound of foot (74) Open wound of foot (75) cellulitis (76) chronic lymphedema (77) chronic lymphedema (78) chronic lymphedema (79) hypertension uncontrolled (80) hypertension uncontrolled (81) Intertrigo (82) Sciatica (83) Cellulitis (84) Schizophrenia (85) Chronic bronchitis (86) HTN (hypertension) (87) Venous stasis ulcers (88) Medication refill (89) Chest pain, atypical (90) BMI 45.0-49.9, adult (91) Lymphedema of both lower extremities (92) hypertension uncontrolled (93) hypertension uncontrolled (94) hypertension uncontrolled (95) tenia corpus (96) Deep tissue injury Assessment & Plan: Morbidly obese pt whom presented on admission with Pressure injuries, Edemae bilat lower extremities eschar to dorsal aspects of metatarsals. Pt is very demanding of staff and can be resistive to repositioning. DTPI noted to L Sacrum(L)5.5cm x (W)2.5cm. Base of Pressure Injury is Maroon and indurated with surrounding non-blanchable erythema DTPI R Sacrum(L)5.5cm x (W)2.3cm. Base of Pressure Injury is maroon with purpuric center that is fluctuant. Pt complained of tenderness when minimally palpated. Bilat lower extremities are edematous . Dry eschar noted to nail matrix and tip of L 1st metatarsal, Dorsal L 2nd metatarsal, R 2nd and R 4th metatarsals. Both heels are boggy with non-Blanchable erythema. blisters forming on Right lower extremity anterior tibia. not infected cellulitis / edema on b/l le stable cont abx Tx.Plan: Apply Moisture Barrier Paste to Sacrum R and L gluteal cheeks. Cover with Optifoam drsgs. Change every 3 days and prn. Apply Betadine to dry eschar metatarsals both feet Daily. Apply Cavilon Skin Barrier to both heels. Cover each heel with Optifoam drsgs. Change every 7days and prn. Reposition at least every 2hours or as tolerated. Off-load heels with pillow. (97) COVID-19 Assessment & Plan: ++ on vent weaning abx as per ID (98) Respiratory failure (99) Pneumonia Juan Manuel Buckner Dec 25, 2019 18:39
--- NOTE | 2019-12-25 19:12 | NUR ---
NURSE HAND-OFF REPORT: Latest Vital Signs: Temperature 97.7 , Pulse 57 , B/P 98 /47 , Respiratory Rate 16 , O2 SAT 95 , Endotracheal Tube, O2 Flow Rate . Vital Sign Comment: EKG Rhythm: Atrial Fibrillation Rhythm change?: N Notified?: N Response: Latest Abreu Fall Score: 75 Fall Risk: High Risk Safety Measures: Call light Within Reach, Bed Alarm Zone 2, Side Rails Side Rails x3, Bed position Low and Locked. Fall Precautions: Yellow Socks Report given to Jaden COHEN.
--- NOTE | 2019-12-25 20:00 | NUR ---
NURSE NOTES: Patient received from NOEL Thompson. patient sedated to RASS -2. patient with 7.5 ETT at 23cm lipline on ventilator AC 16 TV 600 FiO2 40% PEEP 5. BP116/65 HR 70 Afib on monitor. left and right hand #20 PIV running Fentanyl 200mcg/hr, D5W @125ml/hr asymptomatic. patient with right nare NGT running Nepro 1.8 @30ml/hr no residual noted. Lockett catheter draining doretha urine. generalized extremity edema noted with left knee ecchymosis, right knee hematoma with open dry blisters, sacral and bilateral heel DTPI noted. Safety measures in place, will continue to monitor.
[2019-12-25] MEDS: Dyna-Hex 2% Top Sol 2oz TOPIC SCH (20:05)
[2019-12-25] MEDS: Miralax 17gm pkt NG SCH (20:07)
--- NOTE | 2019-12-25 20:22 | General Progress Note ---
Assessment/Plan Problem List: (1) Schizophrenia ICD Codes: F20.9 - Schizophrenia, unspecified SNOMED: 00494811 (2) GERD (gastroesophageal reflux disease) ICD Codes: K21.9 - Gastro-esophageal reflux disease without esophagitis SNOMED: 848100492 (3) Lymphadema (4) Smoker ICD Codes: F17.200 - Nicotine dependence, unspecified, uncomplicated SNOMED: 52588638 (5) Atrial fibrillation with rapid ventricular response ICD Codes: I48.91 - Unspecified atrial fibrillation SNOMED: 710698229957947 (6) CKD (chronic kidney disease) stage 3, GFR 30-59 ml/min ICD Codes: N18.3 - Chronic kidney disease, stage 3 (moderate) SNOMED: 631794745 (7) NATLAIE (acute kidney injury) ICD Codes: N17.9 - Acute kidney failure, unspecified SNOMED: 5232888, 86704120 (8) COPD (chronic obstructive pulmonary disease) ICD Codes: J44.9 - Chronic obstructive pulmonary disease, unspecified SNOMED: 78430386 (9) UGI bleed ICD Codes: K92.2 - Gastrointestinal hemorrhage, unspecified SNOMED: 35602414 (10) Dysphagia ICD Codes: R13.10 - Dysphagia, unspecified SNOMED: 30984878, 625946713 (11) UTI (urinary tract infection) ICD Codes: N39.0 - Urinary tract infection, site not specified SNOMED: 73095608 (12) ESBL (extended spectrum beta-lactamase) producing bacteria infection ICD Codes: A49.9 - Bacterial infection, unspecified; Z16.12 - Extended spectrum beta lactamase (ESBL) resistance SNOMED: 827251107 (13) Dehydration ICD Codes: E86.0 - Dehydration SNOMED: 71142406 (14) CHF exacerbation ICD Codes: I50.9 - Heart failure, unspecified SNOMED: 900201296, 82055875042787 (15) Acute respiratory failure ICD Codes: J96.00 - Acute respiratory failure, unspecified whether with hypoxia or hypercapnia SNOMED: 93275933 (16) COVID-19 ICD Codes: U07.1 - COVID-19 SNOMED: 447011744 (17) Pneumonia ICD Codes: J18.9 - Pneumonia, unspecified organism SNOMED: 226704667 Status: stable Assessment/Plan: resp distress, icu, bipap now intubated, worse natalie,, I/O, ,+hematoma RLE stop eliquis ancd asa, lovenox now iv protonix, rx esbl and + vre uti,g+ cocci linezolid , remains high risk, psychotic and hallucinating d/w psych, ID, cardiology, chf wourse and increase lasix ,covid neg prior now +, grave prognosiss, Hb fell to 6.2, needs transfusion, unable to consent , done icu time 35 min Subjective ROS Limited/Unobtainable: Yes Allergies: Coded Allergies: ERYTHROMYCIN BASE (Verified Allergy, Severe, 12/12/19) HALOPERIDOL (Verified Allergy, Unknown, 12/12/19) VANCOMYCIN (Unverified Adverse Reaction, Intermediate, Shortness of Breath , 12/12/19) Objective Last 24 Hour Vital Signs Date Time Temp Pulse Resp B/P (MAP) Pulse Ox O2 Delivery O2 Flow Rate FiO2 12/25/19 20:07 62 98/47 12/25/19 20:05 88 17 119/56 100 12/25/19 19:30 62 16 40 12/25/19 19:01 16 98/47 Endotracheal Tube 50 12/25/19 19:00 57 16 98/47 (64) 95 12/25/19 18:01 16 86/43 Endotracheal Tube 50 12/25/19 18:00 74 16 87/40 (56) 95 12/25/19 17:56 84 16 102/45 100 12/25/19 17:41 84 102/45 12/25/19 17:30 67 102/45 (64) 12/25/19 17:13 69 16 117/59 100 12/25/19 17:01 45 87/47 Endotracheal Tube 50 12/25/19 17:00 131 147/48 (81) 12/25/19 16:30 72 19 106/54 (71) 98 12/25/19 16:01 22 109/71 Endotracheal Tube 50 12/25/19 16:00 50 12/25/19 16:00 97.7 73 17 102/55 (71) 98 12/25/19 16:00 Mechanical Ventilator 12/25/19 16:00 83 12/25/19 15:28 40 12/25/19 15:27 69 16 50 12/25/19 15:01 17 117/59 Endotracheal Tube 40 12/25/19 15:00 73 17 117/59 (78) 100 12/25/19 14:01 20 104/49 Endotracheal Tube 40 12/25/19 14:00 99.9 64 18 104/49 (67) 99 12/25/19 13:09 99.9 12/25/19 13:07 80 16 108/49 98 12/25/19 13:01 16 114/63 Endotracheal Tube 50 12/25/19 13:00 77 16 108/49 (68) 99 12/25/19 12:30 80 16 91/47 (62) 98 12/25/19 12:23 80 16 50 12/25/19 12:05 76 123/65 12/25/19 12:01 16 114/63 Endotracheal Tube 50 12/25/19 12:00 50 12/25/19 12:00 80 16 114/63 (80) 99 12/25/19 12:00 Mechanical Ventilator 12/25/19 12:00 80 12/25/19 12:00 101.3 80 16 114/63 (80) 99 12/25/19 11:30 78 16 110/63 (79) 99 12/25/19 11:01 16 120/59 Endotracheal Tube 50 12/25/19 11:00 76 16 120/59 (79) 100 12/25/19 10:01 16 105/59 Endotracheal Tube 12.0 50 12/25/19 10:00 75 16 105/59 (74) 99 12/25/19 10:00 16 105/59 Endotracheal Tube 50 12/25/19 09:00 16 89/47 Endotracheal Tube 50 12/25/19 09:00 101.2 74 16 81/37 (52) 98 12/25/19 08:12 105 163/92 12/25/19 08:10 97 16 90/53 93 12/25/19 08:00 Mechanical Ventilator 12/25/19 08:00 50 12/25/19 08:00 18 163/92 Endotracheal Tube 50 12/25/19 08:00 101.3 131 18 163/92 (115) 93 12/25/19 07:46 117 12/25/19 07:17 97 16 40 12/25/19 07:00 16 90/53 Mechanical Ventilator 40 12/25/19 07:00 67 16 90/53 (65) 93 12/25/19 06:00 77 16 107/55 (72) 96 12/25/19 06:00 16 107/55 Mechanical Ventilator 40 12/25/19 05:24 82 124/51 12/25/19 05:00 16 108/68 Mechanical Ventilator 40 12/25/19 05:00 81 16 108/68 (81) 95 12/25/19 04:00 40 12/25/19 04:00 Mechanical Ventilator 12/25/19 04:00 16 122/53 Mechanical Ventilator 40 12/25/19 04:00 93 12/25/19 04:00 100.4 78 16 117/55 (75) 96 12/25/19 03:51 81 16 40 12/25/19 03:00 83 16 115/55 (75) 97 12/25/19 03:00 16 107/48 Mechanical Ventilator 40 12/25/19 02:00 16 119/66 Mechanical Ventilator 40 12/25/19 02:00 75 16 115/65 (82) 98 12/25/19 01:00 91 16 112/49 (70) 98 12/25/19 01:00 16 112/49 Mechanical Ventilator 40 12/25/19 00:00 100.1 80 16 142/48 (79) 100 12/25/19 00:00 16 144/60 Mechanical Ventilator 40 12/25/19 00:00 92 101/62 12/25/19 00:00 Mechanical Ventilator 12/25/19 00:00 40 12/25/19 00:00 78 12/24/19 23:46 80 16 40 12/24/19 23:00 82 16 143/64 (90) 100 12/24/19 23:00 16 148/55 Mechanical Ventilator 40 12/24/19 22:00 16 141/64 Mechanical Ventilator 40 12/24/19 22:00 83 16 139/49 (79) 100 12/24/19 21:17 16 137/59 Mechanical Ventilator 40 12/24/19 21:00 88 16 142/66 (91) 98 12/24/19 21:00 16 142/66 Mechanical Ventilator 40 12/24/19 21:00 43 137/59 12/24/19 20:29 61 17 40 Intake and Output 12/24/19 12/25/19 19:00 07:00 Intake Total 1622.83 ml 1859.3333 ml Output Total 550 ml 1415 ml Balance 1072.83 ml 444.3333 ml IV Total 1372.83 ml 1739.3333 ml Tube Feeding 120 ml Blood Product 250 ml Output Urine Total 550 ml 1415 ml Laboratory Tests 12/24/19 20:43: POC Whole Blood Glucose 174H 12/25/19 04:35: White Blood Count 7.2, Red Blood Count 2.81L, Hemoglobin 7.8L, Hematocrit 24.2L , Mean Corpuscular Volume 86, Mean Corpuscular Hemoglobin 27.8, Mean Corpuscular Hemoglobin Concent 32.4, Red Cell Distribution Width 15.6H, Platelet Count 145L, Mean Platelet Volume 6.8, Neutrophils (%) (Auto) , Lymphocytes (%) (Auto) , Monocytes (%) (Auto) , Eosinophils (%) (Auto) , Basophils (%) (Auto) , D-Dimer 4.61H, Sodium Level 149H, Potassium Level 7.5*H, Chloride Level 113H, Carbon Dioxide Level 29, Anion Gap 7, Blood Urea Nitrogen 64H, Creatinine 1.8H, Estimat Glomerular Filtration Rate 28.0, Glucose Level 96 , Calcium Level 8.9, Ferritin 629H, Total Bilirubin 0.5, Direct Bilirubin 0.3, Aspartate Amino Transf (AST/SGOT) 21, Alanine Aminotransferase (ALT/SGPT) 24, Alkaline Phosphatase 78, Lactate Dehydrogenase 303H, C-Reactive Protein, Quantitative 26.3H, Total Protein 6.4, Albumin 2.0L, Globulin 4.4, Albumin/ Globulin Ratio 0.5L 12/25/19 05:24: POC Whole Blood Glucose [Pending] 12/25/19 07:20: Arterial Blood pH 7.454H, Arterial Blood Partial Pressure CO2 41.8, Arterial Blood Partial Pressure O2 74.8L, Arterial Blood HCO3 28.7H, Arterial Blood Oxygen Saturation 93.8L, Arterial Blood Base Excess 4.3H, [place] Test Positive 12/25/19 13:50: Sodium Level 145, Potassium Level 4.4, Chloride Level 110H, Carbon Dioxide Level 29, Anion Gap 6, Blood Urea Nitrogen 65H, Creatinine 1.8H, Estimat Glomerular Filtration Rate 28.0, Glucose Level 196#H, Calcium Level 8.2L 12/25/19 17:55: Urine Color Yellow, Urine Appearance Clear, Urine pH 5, Urine Specific [place] 1.010, Urine Protein Negative, Urine Glucose (UA) Negative, Urine Ketones Negative, Urine Blood Negative, Urine Nitrite Negative, Urine Bilirubin Negative , Urine Urobilinogen 1H, Urine Leukocyte Esterase Negative Height (Feet): 5 Height (Inches): 6.00 Weight (Pounds): 298 EENT: other - sedated on vent Cardiovascular: regularly irregular Respiratory/Chest: rhonchi - bilaterally Abdomen: non tender, soft Edema: mild edema Neurologic: unresponsive Benjamin Dumont MD Dec 25, 2019 20:22
[2019-12-25] MEDS ORDERED: Miralax 17gm pkt ORAL SCH (21:00)
--- NOTE | 2019-12-25 22:00 | NUR ---
NURSE NOTES: Patient assessment performed, patient repositioned, and give oral care, NAD at this time. Patient given H20 flush. Patient cleaned as she did have a soft BM at this time. Patient Repositioned and oral care performed. Vitals remains stable. Patient RASS remains at -2, opens and closes eyes for about 5 to 7 seconds. Suctioned, range of motion performed without incident. Will continue to monitor.
--- NOTE | 2019-12-25 23:03 | Psych Consult Progress Note ---
Psychiatry Progress Note Psychiatry Progress Note Subjective the pt is intubated and on bilat restraints. Medications Current Medications Medications (Trade) Dose Ordered Sig/Shiraz Route PRN Reason Start Time Stop Time Status Last Admin Dose Admin Acetaminophen (Tylenol) 650 mg Q4H PRN NG Temp >100.5 12/22/19 16:00 01/11/20 22:14 12/23/19 13:53 Acetaminophen (Tylenol) 650 mg Q4H PRN NG Mild Pain (Pain Scale 1-3) 12/22/19 16:00 01/11/20 22:14 12/25/19 20:06 Albuterol Sulfate (Proventil MDI) 2 puff Q4H PRN INH Shortness of Breath 12/24/19 10:30 03/23/20 10:29 Bacitracin (Bacitracin 15gm tube) 1 applic BID TOPIC 12/22/19 18:00 03/12/20 08:59 12/25/19 17:42 Chlorhexidine Gluconate (Jessie-Hex 2%) 1 applic DAILY@1999 TOPIC 12/24/19 20:00 03/23/20 19:59 12/25/19 20:05 Clotrimazole (Lotrimin) 1 applic TWICE A DAY TOPIC 12/22/19 18:00 03/12/20 08:59 12/25/19 17:41 Dexamethasone Sodium Phosphate (Decadron 10mg/ ml Inj) 6 mg DAILY IV 12/24/19 09:00 01/03/20 08:59 12/25/19 08:09 Dextrose 1,000 ml @ 125 mls/hr Q8H IV 12/25/19 09:15 01/24/20 09:14 12/25/19 17:40 Dextrose (Dextrose 50%) 25 ml Q30M PRN IV Hypoglycemia 12/23/19 10:45 03/22/20 10:44 Dextrose (Dextrose 50%) 50 ml Q30M PRN IV Hypoglycemia 12/23/19 10:45 03/22/20 10:44 Diltiazem HCl (Cardizem Tab) 90 mg Q6HR NG 12/22/19 18:00 01/13/20 11:59 12/25/19 17:41 Docusate Sodium (Colace) 100 mg BID NG 12/25/19 09:00 01/24/20 08:59 12/25/19 17:41 Enoxaparin Sodium (Lovenox) 60 mg DAILY SUBQ 12/23/19 09:00 03/22/20 08:59 Famotidine (Pepcid I.v.) 20 mg Q12HR IVP 12/25/19 09:00 01/24/20 08:59 12/25/19 20:05 Fentanyl Citrate 250 ml @ 0 mls/hr Q24H IV 12/25/19 22:30 12/27/19 22:00 Furosemide (Lasix) 40 mg Q6HR IV 12/25/19 12:00 01/24/20 11:59 12/25/19 17:41 Heparin Sodium/ Sodium Chloride (Heparin 1000 units/500ml Premix) 1,000 unit ONCE PRN IV PICC LINE 12/24/19 17:15 12/26/19 23:59 Insulin Aspart (NovoLOG) BEFORE MEALS AND HS SUBQ 12/23/19 11:30 03/22/20 11:29 12/25/19 20:08 Lidocaine HCl (Xylocaine 1% 30ml) 30 ml ONCE PRN INJ PICC LINE 12/24/19 17:15 12/26/19 23:59 Linezolid 300 ml @ 300 mls/hr Q12HR IVPB 12/25/19 21:00 12/29/19 20:59 12/25/19 20:07 Lorazepam (Ativan 2mg/ml 1ml) 2 mg Q2H PRN IV For Anxiety 12/24/19 13:30 12/31/19 13:29 12/25/19 20:05 Magnesium Hydroxide (Mom) 30 ml HSPRN PRN NG Constipation 12/22/19 15:15 01/21/20 15:14 Meropenem 500 mg/ Sodium Chloride 55 ml @ 110 mls/hr Q12H IVPB 12/23/19 16:00 12/28/19 15:59 12/25/19 16:13 Metoprolol Tartrate (Lopressor) 50 mg Q12HR NG 12/22/19 21:00 03/18/20 20:59 12/25/19 08:12 Micafungin Sodium 100 mg/Sodium Chloride 110 ml @ 110 mls/hr Q24H IVPB 12/23/19 09:00 12/28/19 08:59 12/25/19 08:11 Miscellaneous Medication (Remdesivir Fact Sheet) 1 ea ONCE PRN MISC Pt currently sedated 12/24/19 10:30 01/03/20 10:29 Nitroglycerin (Ntg) 0.4 mg Q5M PRN SL Prn Chest Pain 12/22/19 15:00 01/11/20 22:14 Ondansetron HCl (Zofran) 4 mg Q6H PRN IVP Nausea & Vomiting 12/22/19 15:15 01/11/20 15:14 Polyethylene Glycol (Miralax) 17 gm BEDTIME NG 12/22/19 21:00 01/18/20 20:59 12/25/19 20:07 Polymyxin B Sulfate 720273 units/Dextrose 550 ml @ 550 mls/hr EVERY 12 HOURS IV 12/23/19 13:00 12/30/19 12:59 12/25/19 20:06 Remdesivir 100 mg/ Sodium Chloride 250 ml @ 250 mls/hr Q24H IV 12/25/19 14:00 01/02/20 14:59 12/25/19 13:11 Risperidone (RisperDAL) 2 mg BEDTIME NG 12/22/19 21:00 02/04/20 20:59 12/25/19 20:05 Neurological/Psychiatric: Reports: anxiety, depressed, emotional problems Allergies: Coded Allergies: ERYTHROMYCIN BASE (Verified Allergy, Severe, 12/12/19) HALOPERIDOL (Verified Allergy, Unknown, 12/12/19) VANCOMYCIN (Unverified Adverse Reaction, Intermediate, Shortness of Breath , 12/12/19) Objective Data Height (Feet): 5 Height (Inches): 6.00 Weight (Pounds): 298 General Appearance: lethargic, agitated Additional Comments: confused. Mood is anxious. Affect is flat. Assessment/Plan [place] I: haldol im prn morphine low dose 1mg q 6 prn Status: stable Status Narrative haldol im prn morphine low dose 1mg q 6 prn Assessment/Plan: haldol im prn morphine low dose 1mg q 6 prn Harris Ballesteros MD Dec 25, 2019 23:03
[2019-12-26] VITALS (38 sets, daily range): BP systolic 87–148; BP diastolic 26–122
--- NOTE | 2019-12-26 | NUR ---
NURSE NOTES: patient remains sedated to RASS -2. Vitals remains stable, no acute distress, patient had BM and then cleaned. Vitals remains stable. NAD.
--- NOTE | 2019-12-26 01:55 | Cardiology Progress Note ---
Subjective DATE OF SERVICE: Dec 25, 2019 Doing poorly - remains in ICU. Episodes of hypotension today Now COVID19 positive. Monitor: AFIb Persisting respiratory acidosis req'd intubation and mech ventilation Had coffee ground material in NGTube and hematoma on right leg; anti- coagulation was stopped yesterday Venous Duplex: negative for DVT Renal fxn and free water deficit still impaired Objective Last 24 Hour Vital Signs Date Time Temp Pulse Resp B/P (MAP) Pulse Ox O2 Delivery O2 Flow Rate FiO2 12/26/19 00:04 67 16 110/63 100 12/26/19 00:00 Mechanical Ventilator 12/26/19 00:00 40 12/26/19 00:00 68 12/26/19 00:00 99.4 102 15 111/53 (72) 97 12/25/19 23:34 120 21 65/43 99 12/25/19 23:34 99 120/65 12/25/19 23:33 22 127/65 Mechanical Ventilator 40 12/25/19 23:30 133 22 126/85 (99) 97 12/25/19 23:24 127 21 40 12/25/19 23:15 84 16 95/43 (60) 99 12/25/19 23:00 80 16 107/52 (70) 99 12/25/19 22:30 71 16 121/56 (77) 99 12/25/19 22:00 100.5 73 16 109/55 (73) 99 12/25/19 21:00 70 16 108/46 (66) 100 12/25/19 20:36 100.5 12/25/19 20:30 93 18 102/39 (60) 97 12/25/19 20:07 62 98/47 12/25/19 20:05 88 17 119/56 100 12/25/19 20:00 70 12/25/19 20:00 100.9 71 16 119/56 (77) 97 12/25/19 20:00 50 12/25/19 20:00 Mechanical Ventilator 12/25/19 19:30 62 16 109/58 (75) 97 12/25/19 19:30 62 16 40 12/25/19 19:01 16 98/47 Endotracheal Tube 50 12/25/19 19:00 57 16 98/47 (64) 95 12/25/19 18:01 16 86/43 Endotracheal Tube 50 12/25/19 18:00 74 16 87/40 (56) 95 12/25/19 17:41 84 102/45 12/25/19 17:30 67 102/45 (64) 12/25/19 17:13 69 16 117/59 100 12/25/19 17:01 45 87/47 Endotracheal Tube 50 12/25/19 17:00 131 147/48 (81) 12/25/19 16:30 72 19 106/54 (71) 98 12/25/19 16:01 22 109/71 Endotracheal Tube 50 12/25/19 16:00 50 12/25/19 16:00 97.7 73 17 102/55 (71) 98 12/25/19 16:00 Mechanical Ventilator 12/25/19 16:00 83 12/25/19 15:28 40 12/25/19 15:27 69 16 50 12/25/19 15:01 17 117/59 Endotracheal Tube 40 12/25/19 15:00 73 17 117/59 (78) 100 12/25/19 14:01 20 104/49 Endotracheal Tube 40 12/25/19 14:00 99.9 64 18 104/49 (67) 99 12/25/19 13:07 80 16 108/49 98 12/25/19 13:01 16 114/63 Endotracheal Tube 50 12/25/19 13:00 77 16 108/49 (68) 99 12/25/19 12:30 80 16 91/47 (62) 98 12/25/19 12:23 80 16 50 12/25/19 12:05 76 123/65 12/25/19 12:01 16 114/63 Endotracheal Tube 50 12/25/19 12:00 50 12/25/19 12:00 80 16 114/63 (80) 99 12/25/19 12:00 Mechanical Ventilator 12/25/19 12:00 80 12/25/19 12:00 101.3 80 16 114/63 (80) 99 12/25/19 11:30 78 16 110/63 (79) 99 12/25/19 11:01 16 120/59 Endotracheal Tube 50 12/25/19 11:00 76 16 120/59 (79) 100 12/25/19 10:01 16 105/59 Endotracheal Tube 12.0 50 12/25/19 10:00 75 16 105/59 (74) 99 12/25/19 10:00 16 105/59 Endotracheal Tube 50 12/25/19 09:00 16 89/47 Endotracheal Tube 50 12/25/19 09:00 101.2 74 16 81/37 (52) 98 12/25/19 08:12 105 163/92 12/25/19 08:10 97 16 90/53 93 12/25/19 08:00 Mechanical Ventilator 12/25/19 08:00 50 12/25/19 08:00 18 163/92 Endotracheal Tube 50 12/25/19 08:00 101.3 131 18 163/92 (115) 93 12/25/19 07:46 117 12/25/19 07:17 97 16 40 12/25/19 07:00 16 90/53 Mechanical Ventilator 40 12/25/19 07:00 67 16 90/53 (65) 93 12/25/19 06:00 77 16 107/55 (72) 96 12/25/19 06:00 16 107/55 Mechanical Ventilator 40 12/25/19 05:24 82 124/51 12/25/19 05:00 16 108/68 Mechanical Ventilator 40 12/25/19 05:00 81 16 108/68 (81) 95 12/25/19 04:00 40 12/25/19 04:00 Mechanical Ventilator 12/25/19 04:00 16 122/53 Mechanical Ventilator 40 12/25/19 04:00 93 12/25/19 04:00 100.4 78 16 117/55 (75) 96 12/25/19 03:51 81 16 40 12/25/19 03:00 83 16 115/55 (75) 97 12/25/19 03:00 16 107/48 Mechanical Ventilator 40 12/25/19 02:00 16 119/66 Mechanical Ventilator 40 12/25/19 02:00 75 16 115/65 (82) 98 ROS: unchanged from 12/12/19 HEENT: Orally intubated, Mechanically Ventilated, Thin secretions ET Tube, other - NGtube LUNGS: diminished breath sounds CARDIAC: normal S1 and S2, irregularly irregular ABDOMEN: other - obese EXTREMITIES: moderate edema - mostly non pitting, other - hematoma right leg Laboratory Tests Test 12/25/19 04:35 12/25/19 05:24 12/25/19 07:20 12/25/19 13:50 White Blood Count 7.2 K/UL (4.8-10.8) Red Blood Count 2.81 M/UL (4.20-5.40) L Hemoglobin 7.8 G/DL (12.0-16.0) L Hematocrit 24.2 % (37.0-47.0) L Mean Corpuscular Volume 86 FL (80-99) Mean Corpuscular Hemoglobin 27.8 PG (27.0-31.0) Mean Corpuscular Hemoglobin Concent 32.4 G/DL (32.0-36.0) Red Cell Distribution Width 15.6 % (11.6-14.8) H Platelet Count 145 K/UL (150-450) L Mean Platelet Volume 6.8 FL (6.5-10.1) Neutrophils (%) (Auto) % (45.0-75.0) Lymphocytes (%) (Auto) % (20.0-45.0) Monocytes (%) (Auto) % (1.0-10.0) Eosinophils (%) (Auto) % (0.0-3.0) Basophils (%) (Auto) % (0.0-2.0) D-Dimer 4.61 mg/L FEU (0.00-0.49) H Sodium Level 149 MMOL/L (136-145) H 145 MMOL/L (136-145) Potassium Level 7.5 MMOL/L (3.5-5.1) *H 4.4 MMOL/L (3.5-5.1) Chloride Level 113 MMOL/L (98-107) H 110 MMOL/L (98-107) H Carbon Dioxide Level 29 MMOL/L (21-32) 29 MMOL/L (21-32) Anion Gap 7 mmol/L (5-15) 6 mmol/L (5-15) Blood Urea Nitrogen 64 mg/dL (7-18) H 65 mg/dL (7-18) H Creatinine 1.8 MG/DL (0.55-1.30) H 1.8 MG/DL (0.55-1.30) H Estimat Glomerular Filtration Rate 28.0 mL/min (>60) 28.0 mL/min (>60) Glucose Level 96 MG/DL (74-106) 196 MG/DL (74-106) #H Calcium Level 8.9 MG/DL (8.5-10.1) 8.2 MG/DL (8.5-10.1) L Ferritin 629 NG/ML (8-388) H Total Bilirubin 0.5 MG/DL (0.2-1.0) Direct Bilirubin 0.3 MG/DL (0.0-0.3) Aspartate Amino Transf (AST/SGOT) 21 U/L (15-37) Alanine Aminotransferase (ALT/SGPT) 24 U/L (12-78) Alkaline Phosphatase 78 U/L (46-116) Lactate Dehydrogenase 303 U/L (81-234) H C-Reactive Protein, Quantitative 26.3 mg/dL (0.00-0.90) H Total Protein 6.4 G/DL (6.4-8.2) Albumin 2.0 G/DL (3.4-5.0) L Globulin 4.4 g/dL Albumin/Globulin Ratio 0.5 (1.0-2.7) L POC Whole Blood Glucose Pending Arterial Blood pH 7.454 (7.350-7.450) Arterial Blood Partial Pressure CO2 41.8 mmHg (35.0-45.0) Arterial Blood Partial Pressure O2 74.8 mmHg (75.0-100.0) L Arterial Blood HCO3 28.7 mmol/L (22.0-26.0) H Arterial Blood Oxygen Saturation 93.8 % (95-100) L Arterial Blood Base Excess 4.3 (-2-2) H Eugene Test Positive Test 12/25/19 17:55 Urine Color Yellow Urine Appearance Clear Urine pH 5 (4.5-8.0) Urine Specific [place] 1.010 (1.005-1.035) Urine Protein Negative (NEGATIVE) Urine Glucose (UA) Negative (NEGATIVE) Urine Ketones Negative (NEGATIVE) Urine Blood Negative (NEGATIVE) Urine Nitrite Negative (NEGATIVE) Urine Bilirubin Negative (NEGATIVE) Urine Urobilinogen 1 MG/DL (0.0-1.0) H Urine Leukocyte Esterase Negative (NEGATIVE) Microbiology Date/Time Source Procedure Growth Status 12/23/19 23:50 Nasopharynx SARS-CoV-2 RdRp Gene Assay - Final Complete 12/23/19 12:16 Blood Blood Culture - Preliminary NO GROWTH AFTER 24 HOURS Resulted 12/23/19 12:06 Blood Blood Culture - Preliminary NO GROWTH AFTER 24 HOURS Resulted Assessment/Plan Assessment/Plan CRITICAL AND GUARDED Acute respiratory failure Acute on chronic respiratory acidosis AFiB with RVR CHF, ac/chr diast - compensated BLE edema Sepsis with shock obesity COPD with bronchospasm Acute renal failure - worsening Pleural effusion GI bleeding Acute diastolic CHF Covid 19 PNA Vent support Monitor acid/base parameters. Antimicrobials Titrate rate-control meds - hold digitalis for elevated levels. Maintain diltiazem and metoprolol. DC apixaban - hold anticoagulation due to GI bleeding. Hypotonic IVF until po intake improves and free water deficit corrected. Continued court recording monitor Diuresis advanced Thorocentesis under consideration. Jerome Meek MD Dec 26, 2019 01:55
--- NOTE | 2019-12-26 02:00 | NUR ---
NURSE NOTES: Patients peripheral IV lines infiltrated. Inserted a 22g at the right wrist. Patient given bed bath. Oral care performed, passive range of motion offered.
--- NOTE | 2019-12-26 04:00 | NUR ---
NURSE NOTES: complete bed bath reposition and suction
[2019-12-26] MEDS: Meropenem 500 MG in NS 55 ML IVPB SCH ×2 (05:07→17:25)
[2019-12-26] MEDS: dilTIAZem HCl 90mg tab NG SCH ×4 (05:07→23:59)
[2019-12-26 05:50] LABS: HEMATOCRIT 23.5 % (37.0-47.0); HEMOGLOBIN 7.6 G/DL (12.0-16.0); MEAN CORPUSCULAR VOLUME 86 FL (80-99); PLATELET COUNT 126 K/UL (150-450); RED BLOOD COUNT 2.72 M/UL (4.20-5.40); RED CELL DISTRIBUTION WIDTH 16.1 % (11.6-14.8); WHITE BLOOD COUNT 8.3 K/UL (4.8-10.8)
--- NOTE | 2019-12-26 06:00 | NUR ---
NURSE NOTES: NURSE
[2019-12-26 06:06] LABS: ALBUMIN 1.5 G/DL (3.4-5.0); ALBUMIN/GLOBULIN RATIO 0.3 (1.0-2.7); BILIRUBIN,DIRECT 0.3 MG/DL (0.0-0.3); BILIRUBIN,TOTAL 0.7 MG/DL (0.2-1.0); CREATININE 1.8 MG/DL (0.55-1.30); POTASSIUM 4.5 MMOL/L (3.5-5.1)
[2019-12-26] MEDS: NovoLOG Insulin Flexpen SUBQ SCH ×4 (06:30→20:47)
--- NOTE | 2019-12-26 07:20 | NUR ---
NURSE HAND-OFF REPORT: Latest Vital Signs: Temperature 99.5 , Pulse 89 , B/P 110 /44 , Respiratory Rate 16 , O2 SAT 98 , Mechanical Ventilator, O2 Flow Rate . Vital Sign Comment: EKG Rhythm: Atrial Fibrillation Rhythm change?: N Notified?: Y -MD Gaviota UNDERWOOD Response: Latest Abreu Fall Score: 75 Fall Risk: High Risk Safety Measures: Call light Within Reach, Bed Alarm Zone 2, Side Rails Side Rails x3, Bed position Low and Locked. Fall Precautions: Yellow Socks Report given to eleanor mosquera using sbar.
--- NOTE | 2019-12-26 08:57 | General Progress Note ---
Assessment/Plan Problem List: (1) CKD (chronic kidney disease) stage 3, GFR 30-59 ml/min ICD Codes: N18.3 - Chronic kidney disease, stage 3 (moderate) SNOMED: 099487587 (2) COPD (chronic obstructive pulmonary disease) ICD Codes: J44.9 - Chronic obstructive pulmonary disease, unspecified SNOMED: 18916507 (3) Smoker ICD Codes: F17.200 - Nicotine dependence, unspecified, uncomplicated SNOMED: 65303726 (4) GERD (gastroesophageal reflux disease) ICD Codes: K21.9 - Gastro-esophageal reflux disease without esophagitis SNOMED: 602498392 (5) Atrial fibrillation with RVR ICD Codes: I48.91 - Unspecified atrial fibrillation SNOMED: 801550373550704 Status: stable Assessment/Plan: ngtf ppi bid>>will dc given Covid pepcid fu H&H monitor labs bowel regimen fu labs fu cardiology recs icu care Subjective ROS Limited/Unobtainable: No Allergies: Coded Allergies: ERYTHROMYCIN BASE (Verified Allergy, Severe, 12/12/19) HALOPERIDOL (Verified Allergy, Unknown, 12/12/19) VANCOMYCIN (Unverified Adverse Reaction, Intermediate, Shortness of Breath, 12/12/19) Objective Last 24 Hour Vital Signs Date Time Temp Pulse Resp B/P (MAP) Pulse Ox O2 Delivery O2 Flow Rate FiO2 12/26/19 08:00 99.5 117 17 148/122 (131) 89 12/26/19 07:39 40 12/26/19 07:39 130 19 40 12/26/19 07:00 66 1 105/57 (73) 98 12/26/19 06:33 16 110/44 Mechanical Ventilator 40 12/26/19 06:00 89 16 110/47 (68) 98 12/26/19 05:33 20 117/52 Mechanical Ventilator 40 12/26/19 05:30 () 12/26/19 05:07 79 111/54 12/26/19 05:00 77 16 111/54 (73) 99 12/26/19 04:33 16 110/50 Mechanical Ventilator 40 12/26/19 04:30 () 12/26/19 04:00 Mechanical Ventilator 12/26/19 04:00 99.5 70 15 119/56 (77) 98 12/26/19 04:00 40 12/26/19 04:00 77 12/26/19 03:33 20 117/52 Mechanical Ventilator 40.0 40 12/26/19 03:30 () 12/26/19 03:00 78 15 115/45 (68) 96 12/26/19 02:34 78 16 40 12/26/19 02:33 21 98/47 Mechanical Ventilator 40 12/26/19 02:30 89 17 98/47 (64) 97 12/26/19 02:00 102 21 121/61 (81) 91 12/26/19 01:33 17 120/64 Mechanical Ventilator 40 12/26/19 01:00 106 17 95/64 (74) 91 12/26/19 00:33 16 106/53 Mechanical Ventilator 40 12/26/19 00:30 65 16 106/53 (70) 97 12/26/19 00:04 67 16 110/63 100 12/26/19 00:00 Mechanical Ventilator 12/26/19 00:00 40 12/26/19 00:00 68 12/26/19 00:00 99.4 102 15 111/53 (72) 97 12/25/19 23:34 120 21 65/43 99 12/25/19 23:34 99 120/65 12/25/19 23:33 22 127/65 Mechanical Ventilator 40 12/25/19 23:30 133 22 126/85 (99) 97 12/25/19 23:24 127 21 40 12/25/19 23:15 84 16 95/43 (60) 99 12/25/19 23:00 80 16 107/52 (70) 99 12/25/19 22:30 71 16 121/56 (77) 99 12/25/19 22:00 100.5 73 16 109/55 (73) 99 12/25/19 21:00 70 16 108/46 (66) 100 12/25/19 20:36 100.5 12/25/19 20:30 93 18 102/39 (60) 97 12/25/19 20:07 62 98/47 12/25/19 20:05 88 17 119/56 100 12/25/19 20:00 70 12/25/19 20:00 100.9 71 16 119/56 (77) 97 12/25/19 20:00 50 12/25/19 20:00 Mechanical Ventilator 9/15/20 19:30 62 16 109/58 (75) 97 12/25/19 19:30 62 16 40 12/25/19 19:01 16 98/47 Endotracheal Tube 50 12/25/19 19:00 57 16 98/47 (64) 95 12/25/19 18:01 16 86/43 Endotracheal Tube 50 12/25/19 18:00 74 16 87/40 (56) 95 12/25/19 17:41 84 102/45 12/25/19 17:30 67 102/45 (64) 12/25/19 17:13 69 16 117/59 100 12/25/19 17:01 45 87/47 Endotracheal Tube 50 12/25/19 17:00 131 147/48 (81) 12/25/19 16:30 72 19 106/54 (71) 98 12/25/19 16:01 22 109/71 Endotracheal Tube 50 12/25/19 16:00 50 12/25/19 16:00 97.7 73 17 102/55 (71) 98 12/25/19 16:00 Mechanical Ventilator 12/25/19 16:00 83 12/25/19 15:28 40 12/25/19 15:27 69 16 50 12/25/19 15:01 17 117/59 Endotracheal Tube 40 12/25/19 15:00 73 17 117/59 (78) 100 12/25/19 14:01 20 104/49 Endotracheal Tube 40 12/25/19 14:00 99.9 64 18 104/49 (67) 99 12/25/19 13:07 80 16 108/49 98 12/25/19 13:01 16 114/63 Endotracheal Tube 50 12/25/19 13:00 77 16 108/49 (68) 99 12/25/19 12:30 80 16 91/47 (62) 98 12/25/19 12:23 80 16 50 12/25/19 12:05 76 123/65 12/25/19 12:01 16 114/63 Endotracheal Tube 50 12/25/19 12:00 50 12/25/19 12:00 80 16 114/63 (80) 99 12/25/19 12:00 Mechanical Ventilator 12/25/19 12:00 80 12/25/19 12:00 101.3 80 16 114/63 (80) 99 12/25/19 11:30 78 16 110/63 (79) 99 9/15/20 11:01 16 120/59 Endotracheal Tube 50 12/25/19 11:00 76 16 120/59 (79) 100 12/25/19 10:01 16 105/59 Endotracheal Tube 12.0 50 12/25/19 10:00 75 16 105/59 (74) 99 12/25/19 10:00 16 105/59 Endotracheal Tube 50 12/25/19 09:00 16 89/47 Endotracheal Tube 50 12/25/19 09:00 101.2 74 16 81/37 (52) 98 Intake and Output 12/25/19 12/26/19 19:00 07:00 Intake Total 2944.8167 ml 3557 ml Output Total 1560 ml 2165 ml Balance 1384.8167 ml 1392 ml Free Water 100 ml 20 ml IV Total 2574.8167 ml 3177 ml Tube Feeding 270 ml 360 ml Output Urine Total 1560 ml 2165 ml # Bowel Movements 1 2 Laboratory Tests 12/25/19 13:50: Sodium Level 145, Potassium Level 4.4, Chloride Level 110H, Carbon Dioxide Level 29, Anion Gap 6, Blood Urea Nitrogen 65H, Creatinine 1.8H, Estimat Glomerular Filtration Rate 28.0, Glucose Level 196#H, Calcium Level 8.2L 12/25/19 17:55: Urine Color Yellow, Urine Appearance Clear, Urine pH 5, Urine Specific [place] 1.010, Urine Protein Negative, Urine Glucose (UA) Negative, Urine Ketones Negative, Urine Blood Negative, Urine Nitrite Negative, Urine Bilirubin Negative, Urine Urobilinogen 1H, Urine Leukocyte Esterase Negative 12/26/19 04:00: Sodium Level 148H, Potassium Level 4.5, Chloride Level 111H, Carbon Dioxide Level 29, Anion Gap 8, Blood Urea Nitrogen 66H, Creatinine 1.8H, Estimat Gl omerular Filtration Rate 28.0, Glucose Level 128H, Calcium Level 8.0L, White Blood Count 8.3, Red Blood Count 2.72L, Hemoglobin 7.6L, Hematocrit 23.5L, Mean Corpuscular Volume 86, Mean Corpuscular Hemoglobin 28.1, Mean Corpuscular Hemoglobin Concent 32.4, Red Cell Distribution Width 16.1H, Platelet Count 126L, Mean Platelet Volume 7.5, Neutrophils (%) (Auto) , Lymphocytes (%) (Auto) , Monocytes (%) (Auto) , Eosinophils (%) (Auto) , Basophils (%) (Auto) , Total Bilirubin 0.7, Direct Bilirubin 0.3, Aspartate Amino Transf (AST/SGOT) 15, Alanine Aminotransferase (ALT/SGPT) 15, Alkaline Phosphatase 58, Total Protein 6.2L, Albumin 1.5L, Globulin 4.7, Albumin/Globulin Ratio 0.3L 12/26/19 08:26: Arterial Blood pH 7.264L, Arterial Blood Partial Pressure CO2 69.1*H, Arterial Blood Partial Pressure O2 70.1L, Arterial Blood HCO3 30.6H, Arterial Blood Oxygen Saturation 90.2L, Arterial Blood Base Excess 2.5H, Eugene Test Positive Height (Feet): 5 Height (Inches): 6.00 Weight (Pounds): 298 General Appearance: no apparent distress EENT: normal ENT inspection Neck: supple Cardiovascular: normal rate Respiratory/Chest: decreased breath sounds Abdomen: normal bowel sounds, non tender, soft Extremities: non-tender Mervin Victoria MD Dec 26, 2019 08:57
[2019-12-26] MEDS: Metoprolol Tartrate 50mg tab NG SCH ×2 (09:00→20:46)
--- NOTE | 2019-12-26 09:33 | NUR ---
RADIOLOGY DEPT., CHEST X-RAY DONE.-P.DYE
--- NOTE | 2019-12-26 09:45 | NUR ---
NURSE NOTES: Dr. Keen updated on patient ABG results, ordered to have Tidal volume to 600ml. no further orders given at this time.
[2019-12-26] MEDS: Polymyxin B Sulfate 500,000 units in D5W 550ml IV SCH ×2 (09:53→20:45)
[2019-12-26] MEDS: Docusate 100mg/10ml Liq NG SCH ×2 (09:54→17:25)
[2019-12-26] MEDS: dexAMETHasone 10mg/ml Inj IV SCH (09:54)
[2019-12-26] MEDS: Bacitracin Oint 15gm Tube TOPIC SCH ×2 (09:56→17:36)
--- NOTE | 2019-12-26 10:42 | NUR ---
NURSE NOTES: AC changed to 18 after ABG results were reviewed by Luz Bowen, RT is at the bedside and changed setting, patient remains saturating at 98-99% with respiratory rate of 18 patient remains sedated on fentanyl at 200mcg/hr at 20ml/hr.
--- NOTE | 2019-12-26 11:04 | Pulmonolgy Critical Care Note ---
AndrésLuz BULLDOZER MECHANIC 12/26/19 1104: Critical Care - Asmt/Plan Assessment/Plan: ASSESSMENT acute hypoxemic hypercapnic resp failure, requiring intubation 12/22 COVID 19 PNA sepsis fungemia UTI with E coli ESBL UTI VRE possible aspiration PNA COPD Bronchospasm Atrial fibrillation with rapid ventricular response Congestive heart failure Acute renal failure on CKD Severe anemia Probable GI bleeding Status post ground fall Tobacco dependency Morbid obesity probably GARY Homeless R knee edema and hematoma, likely sprain /strain post fall PLAN OF CARE ICU intubated 12/22 ABG noted this am with res[ acidosis/hypercapnia, TV inxcreased to 600 prior, increase AC to 18 , titrate Fio2 to keep sat above 92 CXR this am pending fup with CXR and ABG MDI Albuterol in line with vent steroids IV ( started 12/23) and Remdesivir (started 12/24 ) sedation with Fentanyl gtt and Ativan prn DVT prophylaxis with Lovenox prior Venous Duplex BLE -NGT COVID 19 by PCR 12/22 positive isolation [place] 6 pending ,CRP 15.6, ferritin 769, fup with inflammatory markers CRP up to 26.3, ferritin down to 629 on diuresis with Lasix monitor volumes closely rate control- per cardio recs: monitor volumes pro BNP trending down ECHO with pEF no evidence of WMA GI prophylaxis with PPI s/p Venofer x 2 s/p 2 u PRBC 12/22, Hgb 7.6 this am monitor HH with goal to keep Hgb >7 GI procedure when stable renal US no hydro, BL nonobstructive stones s/p IV hydration, now resumed again per nephro monitor renal parameters, lytes , e/lyte management as per nephro recs UCX 12/11 + E coli ESBL, BCX 12/16 12 + yeast, fup with yeast ID, ? source BCX 12/17 NGTD BCX 12/22 NGTD UCX 12/16 VRE SCX 12/19 MRSA, ACB MDR now on meropenem , micafungin , Polymyxin and Zyvox -as per ID recs , prior X ray R knee given fall 12/15 , large hematoma, swelling-no fx or dislocation ice R knee and elevate CT head no acute IC pathology fall precautions prior declined Nicotine patch discussion on weight loss if receptive - not at this time; anxious and wants to go home pain management anxiolytic prn SW consult for placement patient needs PICC line placement emergently for medications/treatment patient unable to consent at this time patient had no family to consent for her patient on multiple antibiotics, very edematous + COVID case discussed and evaluated by supervising physician ivy mccarty for a consult! Critical Care - Objective Last 24 Hour Vital Signs Date Time Temp Pulse Resp B/P (MAP) Pulse Ox O2 Delivery O2 Flow Rate FiO2 12/26/19 10:00 79 16 95/56 (69) 98 12/26/19 10:00 40 12/26/19 09:00 87 16 94/57 (69) 98 12/26/19 09:00 68 95/56 12/26/19 08:00 99.5 117 17 148/122 (131) 89 12/26/19 07:39 40 12/26/19 07:39 130 19 40 12/26/19 07:00 66 1 105/57 (73) 98 12/26/19 06:33 16 110/44 Mechanical Ventilator 40 12/26/19 06:00 89 16 110/47 (68) 98 12/26/19 05:33 20 117/52 Mechanical Ventilator 40 12/26/19 05:30 () 12/26/19 05:07 79 111/54 12/26/19 05:00 77 16 111/54 (73) 99 12/26/19 04:33 16 110/50 Mechanical Ventilator 40 12/26/19 04:30 () 12/26/19 04:00 Mechanical Ventilator 12/26/19 04:00 99.5 70 15 119/56 (77) 98 12/26/19 04:00 40 12/26/19 04:00 77 12/26/19 03:33 20 117/52 Mechanical Ventilator 40.0 40 12/26/19 03:30 () 12/26/19 03:00 78 15 115/45 (68) 96 12/26/19 02:34 78 16 40 12/26/19 02:33 21 98/47 Mechanical Ventilator 40 12/26/19 02:30 89 17 98/47 (64) 97 12/26/19 02:00 102 21 121/61 (81) 91 12/26/19 01:33 17 120/64 Mechanical Ventilator 40 12/26/19 01:00 106 17 95/64 (74) 91 12/26/19 00:33 16 106/53 Mechanical Ventilator 40 12/26/19 00:30 65 16 106/53 (70) 97 12/26/19 00:04 67 16 110/63 100 12/26/19 00:00 Mechanical Ventilator 12/26/19 00:00 40 12/26/19 00:00 68 12/26/19 00:00 99.4 102 15 111/53 (72) 97 12/25/19 23:34 120 21 65/43 99 12/25/19 23:34 99 120/65 12/25/19 23:33 22 127/65 Mechanical Ventilator 40 12/25/19 23:30 133 22 126/85 (99) 97 12/25/19 23:24 127 21 40 12/25/19 23:15 84 16 95/43 (60) 99 12/25/19 23:00 80 16 107/52 (70) 99 12/25/19 22:30 71 16 121/56 (77) 99 12/25/19 22:00 100.5 73 16 109/55 (73) 99 12/25/19 21:00 70 16 108/46 (66) 100 12/25/19 20:36 100.5 12/25/19 20:30 93 18 102/39 (60) 97 12/25/19 20:07 62 98/47 12/25/19 20:05 88 17 119/56 100 12/25/19 20:00 70 12/25/19 20:00 100.9 71 16 119/56 (77) 97 12/25/19 20:00 50 12/25/19 20:00 Mechanical Ventilator 12/25/19 19:30 62 16 109/58 (75) 97 12/25/19 19:30 62 16 40 12/25/19 19:01 16 98/47 Endotracheal Tube 50 12/25/19 19:00 57 16 98/47 (64) 95 12/25/19 18:01 16 86/43 Endotracheal Tube 50 12/25/19 18:00 74 16 87/40 (56) 95 12/25/19 17:41 84 102/45 12/25/19 17:30 67 102/45 (64) 12/25/19 17:13 69 16 117/59 100 12/25/19 17:01 45 87/47 Endotracheal Tube 50 12/25/19 17:00 131 147/48 (81) 12/25/19 16:30 72 19 106/54 (71) 98 12/25/19 16:01 22 109/71 Endotracheal Tube 50 12/25/19 16:00 50 12/25/19 16:00 97.7 73 17 102/55 (71) 98 12/25/19 16:00 Mechanical Ventilator 12/25/19 16:00 83 12/25/19 15:28 40 12/25/19 15:27 69 16 50 12/25/19 15:01 17 117/59 Endotracheal Tube 40 12/25/19 15:00 73 17 117/59 (78) 100 12/25/19 14:01 20 104/49 Endotracheal Tube 40 12/25/19 14:00 99.9 64 18 104/49 (67) 99 12/25/19 13:07 80 16 108/49 98 12/25/19 13:01 16 114/63 Endotracheal Tube 50 12/25/19 13:00 77 16 108/49 (68) 99 12/25/19 12:30 80 16 91/47 (62) 98 12/25/19 12:23 80 16 50 12/25/19 12:05 76 123/65 12/25/19 12:01 16 114/63 Endotracheal Tube 50 12/25/19 12:00 50 12/25/19 12:00 80 16 114/63 (80) 99 12/25/19 12:00 Mechanical Ventilator 12/25/19 12:00 80 12/25/19 12:00 101.3 80 16 114/63 (80) 99 12/25/19 11:30 78 16 110/63 (79) 99 12/25/19 11:01 16 120/59 Endotracheal Tube 50 12/25/19 11:00 76 16 120/59 (79) 100 Objective: General Appearance: morbidly obese , sedated, on vent AC 600-18-40% PEEP 5 Lines, tubes and drains: peripheral HEENT: normocephalic, atraumatic, anicteric, NGT in , OP with ET Neck: non-tender Respiratory/Chest: chest wall non-tender, no accessory muscle use, decreased breath sounds; Cardiovascular/Chest: irregularly irregular - A fib , tachy at times , distant heart sounds Abdomen: normal bowel sounds, non tender , obese, soft Extremities: no calf tenderness, moderate edema - +3 BLE, R knee with large hematoma, edema, Skin Exam: warm/dry, multiple tattoos Neurologic: sedated Musculoskeletal: normal muscle bulk Micro: Microbiology Date/Time Source Procedure Growth Status 12/23/19 23:50 Nasopharynx SARS-CoV-2 RdRp Gene Assay - Final Complete 12/23/19 12:16 Blood Blood Culture - Preliminary NO GROWTH AFTER 48 HOURS Resulted 12/23/19 12:06 Blood Blood Culture - Preliminary NO GROWTH AFTER 48 HOURS Resulted Accucheck: 127 Critical Care - Subjective ROS Limited/Unobtainable: Yes Interval Events: low grade fevers ABG this am with resp acidosis /hypercapnia pH 7.26, PCO2 69, sat 90% on 600-16-40% PEEP 5 CXR pending for this am no leukocytosis sedated, on Fentanyl gtt creat remains stable Hgb down to 7.6 Condition: critical IV Access: peripheral EKG Rhythm: Atrial Fibrillation - occasionally with RVR FI02: 40 Vent Support Breath Rate: 16 Vent Support Mode: AC Vent Tidal Volume: 600 Sputum Amount: Small PEEP: 5.0 PIP: 28 Fluids: D5W at 125 Drips: Fentanyl gtt 200 mcg/hr Tube Feeding Amount: 30 I&O: Intake and Output 12/25/19 12/26/19 19:00 07:00 Intake Total 2944.8167 ml 3557 ml Output Total 1560 ml 2165 ml Balance 1384.8167 ml 1392 ml Free Water 100 ml 20 ml IV Total 2574.8167 ml 3177 ml Tube Feeding 270 ml 360 ml Output Urine Total 1560 ml 2165 ml # Bowel Movements 1 2 CXR: CXR 12/24 The tracheal tube and NG tube remain in place. Vascular prominence and bilateral hazy alveolar densities are unchanged. Cardiomegaly and small effusions also unchanged. The bony thorax appear unremarkable. ET-Tube: 7.5 ET Position: 24 Colt Keen MD 12/26/192128: Critical Care - Asmt/Plan Assessment/Plan: Patient seen and examined with [employer] MECHANIC and I agree with the above formulated assessment and plan. Time Spent (Minutes): 40 - cc Luz Bowen NP Dec 26, 2019 11:04 Colt Keen MD Dec 26, 2019 21:29
[2019-12-26] MEDS: Micafungin 100 MG in NS 110 ML IVPB SCH (11:27)
--- NOTE | 2019-12-26 11:31 | Diagnostic Imaging Report ---
Procedure: XRAY Chest 1v Reason for study: Reason For Exam: SOB Comparison films: 12/25/2019. FINDINGS: Endotracheal tube and NG tube remain in place. Hazy bilateral alveolar densities are essentially unchanged given the difference in technique. Cardiomegaly and right effusion again noted. The bony thorax appear unremarkable. IMPRESSION: NO SIGNIFICANT CHANGE COMPARED TO PREVIOUS EXAM.
--- NOTE | 2019-12-26 11:41 | NUR ---
CASE MANAGEMENT:INTERQUAL MET CRITICAL Addendum: 12/26/19 at 1353 by EDGARD ASH LVN CASE MANAGEMENT:REVIEW 12/26/19 SI; NOW COVID + PNA . SEVERE ANEMIA E COLI UTI. COPD. ASP PNA. AFIB W/ PVC UNCONTROLLED HR . BLE EDEMA 99.5 117 148/122 89% ON MECHANICAL VENT ET TUBE FiO2 40 H/H 7.6/23.5 PLT 126 NA+ 148 BUN/CREAT 66/1.8 ALB 1.5 ABC : pH 7.264 pCO2 69.1 pO2 70.1 HCO3 30.6 O2 SAT 90.2 BASE EXCESS 2.5 IS; IV REMDESIVIR X9 BAGS IV FENTANYL PROTOCOL IV D5@125ML/HR IV CARDIZEM Q6HR IV LINEZOLID BID IV POLYMYXIN BID IV MICAFUNGIN IV DECADRON QD IV MEROPENEM BID IV LASIX Q6HR BLOOD CX ~IN PROCESS PICC LINE PLACEMENT ICU STATUS DCP; [facility] PL[facility]: ISOLATION PRECAUTION STABILIZE RESPIRATORY STATUS FiO2 ADJUSTMENTS
--- NOTE | 2019-12-26 11:52 | NUR ---
NURSE NOTES: Dr. orellana called and left message at his office regarding PICC Line order and consent. awaiting for call back.
--- NOTE | 2019-12-26 13:37 | Infectious Diseases Prog Note ---
Assessment/Plan Assessment/Plan ASSESSMENT AND PLAN: 1. hx esbl e.coli uti/pyelonephritis, sepsis, leukocytosis, fevers mrsa and vre colonization, NATALIE, respiratory distress/failure Fungemia - + yeast in blood staph aureus pna/acinetobacter pna VRE uti covid-19 testing + - zyvox, meropenem, polymyxin, micafungin - remdesivir and dexamethasone - monitor labs and chest x-ray, f/u on cultures - icu care, supportive care 2. Chronic kidney failure, acute renal failure. 3. COPD. 4. Pulmonary followup. 5. Renal followup. 6. History of falls. 7. Atrial fibrillation. Cardiology followup. 8. Obesity. 9. Gait disorder. 10. Schizophrenia. 11. Homeless. 12. Allergic to erythromycin, haloperidol, and vancomycin. 13. Social history is negative. 14. Family history is noncontributory. 15. MAR is noted. 16. Case discussed with RN. 17. Continue treatment per Dr. Dumont and consultants. Subjective Constitutional: Reports: other - on vent HEENT: Reports: congestion Respiratory: Reports: shortness of breath Cardiovascular: Reports: other - no pressors Gastrointestinal/Abdominal: Reports: other - on vent Allergies: Coded Allergies: ERYTHROMYCIN BASE (Verified Allergy, Severe, 12/12/19) HALOPERIDOL (Verified Allergy, Unknown, 12/12/19) VANCOMYCIN (Unverified Adverse Reaction, Intermediate, Shortness of Breath, 12/12/19) Objective Last 24 Hour Vital Signs Date Time Temp Pulse Resp B/P (MAP) Pulse Ox O2 Delivery O2 Flow Rate FiO2 12/26/19 13:02 82 100/75 12/26/19 13:00 112 18 100/75 (83) 96 12/26/19 12:00 99.9 79 18 109/59 (76) 100 12/26/19 11:00 73 18 110/64 (79) 100 12/26/19 10:40 69 18 40 12/26/19 10:00 79 16 95/56 (69) 98 12/26/19 10:00 40 12/26/19 09:00 87 16 94/57 (69) 98 12/26/19 09:00 68 95/56 12/26/19 08:00 86 12/26/19 08:00 Mechanical Ventilator 12/26/19 08:00 99.5 117 17 148/122 (131) 89 9/16/20 07:39 40 12/26/19 07:39 130 19 40 12/26/19 07:00 66 1 105/57 (73) 98 12/26/19 06:33 16 110/44 Mechanical Ventilator 40 12/26/19 06:00 89 16 110/47 (68) 98 12/26/19 05:33 20 117/52 Mechanical Ventilator 40 12/26/19 05:30 () 12/26/19 05:07 79 111/54 12/26/19 05:00 77 16 111/54 (73) 99 12/26/19 04:33 16 110/50 Mechanical Ventilator 40 12/26/19 04:30 () 12/26/19 04:00 Mechanical Ventilator 12/26/19 04:00 99.5 70 15 119/56 (77) 98 12/26/19 04:00 40 12/26/19 04:00 77 12/26/19 03:33 20 117/52 Mechanical Ventilator 40.0 40 12/26/19 03:30 () 12/26/19 03:00 78 15 115/45 (68) 96 12/26/19 02:34 78 16 40 12/26/19 02:33 21 98/47 Mechanical Ventilator 40 12/26/19 02:30 89 17 98/47 (64) 97 12/26/19 02:00 102 21 121/61 (81) 91 12/26/19 01:33 17 120/64 Mechanical Ventilator 40 12/26/19 01:00 106 17 95/64 (74) 91 12/26/19 00:33 16 106/53 Mechanical Ventilator 40 12/26/19 00:30 65 16 106/53 (70) 97 12/26/19 00:04 67 16 110/63 100 12/26/19 00:00 Mechanical Ventilator 12/26/19 00:00 40 12/26/19 00:00 68 12/26/19 00:00 99.4 102 15 111/53 (72) 97 12/25/19 23:34 120 21 65/43 99 12/25/19 23:34 99 120/65 12/25/19 23:33 22 127/65 Mechanical Ventilator 40 12/25/19 23:30 133 22 126/85 (99) 97 12/25/19 23:24 127 21 40 12/25/19 23:15 84 16 95/43 (60) 99 12/25/19 23:00 80 16 107/52 (70) 99 12/25/19 22:30 71 16 121/56 (77) 99 12/25/19 22:00 100.5 73 16 109/55 (73) 99 12/25/19 21:00 70 16 108/46 (66) 100 12/25/19 20:36 100.5 12/25/19 20:30 93 18 102/39 (60) 97 12/25/19 20:07 62 98/47 12/25/19 20:05 88 17 119/56 100 12/25/19 20:00 70 12/25/19 20:00 100.9 71 16 119/56 (77) 97 12/25/19 20:00 50 12/25/19 20:00 Mechanical Ventilator 12/25/19 19:30 62 16 109/58 (75) 97 12/25/19 19:30 62 16 40 12/25/19 19:01 16 98/47 Endotracheal Tube 50 12/25/19 19:00 57 16 98/47 (64) 95 12/25/19 18:01 16 86/43 Endotracheal Tube 50 12/25/19 18:00 74 16 87/40 (56) 95 12/25/19 17:41 84 102/45 12/25/19 17:30 67 102/45 (64) 12/25/19 17:13 69 16 117/59 100 12/25/19 17:01 45 87/47 Endotracheal Tube 50 12/25/19 17:00 131 147/48 (81) 12/25/19 16:30 72 19 106/54 (71) 98 12/25/19 16:01 22 109/71 Endotracheal Tube 50 12/25/19 16:00 50 12/25/19 16:00 97.7 73 17 102/55 (71) 98 12/25/19 16:00 Mechanical Ventilator 12/25/19 16:00 83 12/25/19 15:28 40 12/25/19 15:27 69 16 50 12/25/19 15:01 17 117/59 Endotracheal Tube 40 12/25/19 15:00 73 17 117/59 (78) 100 12/25/19 14:01 20 104/49 Endotracheal Tube 40 12/25/19 14:00 99.9 64 18 104/49 (67) 99 Height (Feet): 5 Height (Inches): 6.00 Weight (Pounds): 298 General Appearance: other - limited isolation secondary to covid isolation HEENT: normocephalic, atraumatic, anicteric Respiratory/Chest: other - on vent, + sob Chest x-ray - 11/17/19 - Procedure: XRAY Chest 1v Indication: Shortness of breath Technique: One view of the chest Comparison: 12/17/2019 Findings: The heart is enlarged. There is bilateral interstitial and airspace disease is again demonstrated, probably unchanged allowing for differences in degree of inspiration. Impression: Unchanged, over one day, findings as above. Chest x-ray - 12/21/19 - Procedure: XRAY Chest 1v Indication: Shortness of breath Technique: One view of the chest Comparison: 12/19/2019 Findings: The heart is enlarged. Bilateral extensive infiltrates are again demonstrated, stable to slightly worse allowing for differences in exposure technique. There is suggestion of increasing pleural fluid on the left. Nasogastric tube is again demonstrated. Impression: Stable to worsened bilateral extensive infiltrates, since exam of 2 days prior Increasing left pleural effusion Chest x-ray - 12/23/19 - IMPRESSION: 1. No significant interval change from the prior chest x-ray. 2. Persistent moderate left pleural effusion and mild right pleural effusion. 3. Pulmonary vascular congestion. 4. Persistent opacity in the left lung base, which may represent atelectasis versus pneumonia. Chest x-ray - 12/25/19 - Procedure: XRAY Chest 1v Procedure: XRAY Chest 1v Reason for study: Reason For Exam: SOB Comparison films: 12/24/2019. FINDINGS: The tracheal tube and NG tube remain in place. Vascular prominence and bilateral hazy alveolar densities are unchanged. Cardiomegaly and small effusions also unchanged. The bony thorax appear unremarkable. IMPRESSION: NO SIGNIFICANT CHANGE COMPARED TO PREVIOUS EXAM. Microbiology Date/Time Source Procedure Growth Status 12/23/19 23:50 Nasopharynx SARS-CoV-2 RdRp Gene Assay - Final Complete Laboratory Tests Test 12/25/19 13:50 12/25/19 17:55 12/26/19 04:00 12/26/19 08:26 Sodium Level 145 MMOL/L (136-145) 148 MMOL/L (136-145) H Potassium Level 4.4 MMOL/L (3.5-5.1) 4.5 MMOL/L (3.5-5.1) Chloride Level 110 MMOL/L (98-107) H 111 MMOL/L (98-107) H Carbon Dioxide Level 29 MMOL/L (21-32) 29 MMOL/L (21-32) Anion Gap 6 mmol/L (5-15) 8 mmol/L (5-15) Blood Urea Nitrogen 65 mg/dL (7-18) H 66 mg/dL (7-18) H Creatinine 1.8 MG/DL (0.55-1.30) H 1.8 MG/DL (0.55-1.30) H Estimat Glomerular Filtration Rate 28.0 mL/min (>60) 28.0 mL/min (>60) Glucose Level 196 MG/DL (74-106) #H 128 MG/DL (74-106) H Calcium Level 8.2 MG/DL (8.5-10.1) L 8.0 MG/DL (8.5-10.1) L Urine Color Yellow Urine Appearance Clear Urine pH 5 (4.5-8.0) Urine Specific [place] 1.010 (1.005-1.035) Urine Protein Negative (NEGATIVE) Urine Glucose (UA) Negative (NEGATIVE) Urine Ketones Negative (NEGATIVE) Urine Blood Negative (NEGATIVE) Urine Nitrite Negative (NEGATIVE) Urine Bilirubin Negative (NEGATIVE) Urine Urobilinogen 1 MG/DL (0.0-1.0) H Urine Leukocyte Esterase Negative (NEGATIVE) White Blood Count 8.3 K/UL (4.8-10.8) Red Blood Count 2.72 M/UL (4.20-5.40) L Hemoglobin 7.6 G/DL (12.0-16.0) L Hematocrit 23.5 % (37.0-47.0) L Mean Corpuscular Volume 86 FL (80-99) Mean Corpuscular Hemoglobin 28.1 PG (27.0-31.0) Mean Corpuscular Hemoglobin Concent 32.4 G/DL (32.0-36.0) Red Cell Distribution Width 16.1 % (11.6-14.8) H Platelet Count 126 K/UL (150-450) L Mean Platelet Volume 7.5 FL (6.5-10.1) Neutrophils (%) (Auto) % (45.0-75.0) Lymphocytes (%) (Auto) % (20.0-45.0) Monocytes (%) (Auto) % (1.0-10.0) Eosinophils (%) (Auto) % (0.0-3.0) Basophils (%) (Auto) % (0.0-2.0) Total Bilirubin 0.7 MG/DL (0.2-1.0) Direct Bilirubin 0.3 MG/DL (0.0-0.3) Aspartate Amino Transf (AST/SGOT) 15 U/L (15-37) Alanine Aminotransferase (ALT/SGPT) 15 U/L (12-78) Alkaline Phosphatase 58 U/L (46-116) C-Reactive Protein, Quantitative 16.1 mg/dL (0.00-0.90) H Total Protein 6.2 G/DL (6.4-8.2) L Albumin 1.5 G/DL (3.4-5.0) L Globulin 4.7 g/dL Albumin/Globulin Ratio 0.3 (1.0-2.7) L Arterial Blood pH 7.264 (7.350-7.450) Arterial Blood Partial Pressure CO2 69.1 mmHg (35.0-45.0) *H Arterial Blood Partial Pressure O2 70.1 mmHg (75.0-100.0) L Arterial Blood HCO3 30.6 mmol/L (22.0-26.0) H Arterial Blood Oxygen Saturation 90.2 % (95-100) L Arterial Blood Base Excess 2.5 (-2-2) H Eugene Test Positive Test 12/26/19 10:10 Miscellaneous Test Pending Current Medications Medications (Trade) Dose Ordered Sig/Shiraz Route PRN Reason Start Time Stop Time Status Last Admin Dose Admin Acetaminophen (Tylenol) 650 mg Q4H PRN NG Temp >100.5 12/22/19 16:00 01/11/20 22:14 12/23/19 13:53 Acetaminophen (Tylenol) 650 mg Q4H PRN NG Mild Pain (Pain Scale 1-3) 12/22/19 16:00 01/11/20 22:14 12/25/19 20:06 Albuterol Sulfate (Proventil MDI) 2 puff Q4H PRN INH Shortness of Breath 12/24/19 10:30 03/23/20 10:29 Bacitracin (Bacitracin 15gm tube) 1 applic BID TOPIC 12/22/19 18:00 03/12/20 08:59 12/26/19 09:56 Chlorhexidine Gluconate (Jessie-Hex 2%) 1 applic DAILY@1999 TOPIC 12/24/19 20:00 03/23/20 19:59 12/25/19 20:05 Clotrimazole (Lotrimin) 1 applic TWICE A DAY TOPIC 12/22/19 18:00 03/12/20 08:59 12/26/19 09:56 Dexamethasone Sodium Phosphate (Decadron 10mg/ ml Inj) 6 mg DAILY IV 12/24/19 09:00 01/03/20 08:59 12/26/19 09:54 Dextrose 1,000 ml @ 125 mls/hr Q8H IV 12/25/19 09:15 01/24/20 09:14 12/26/19 09:54 Dextrose (Dextrose 50%) 25 ml Q30M PRN IV Hypoglycemia 12/23/19 10:45 03/22/20 10:44 Dextrose (Dextrose 50%) 50 ml Q30M PRN IV Hypoglycemia 12/23/19 10:45 03/22/20 10:44 Diltiazem HCl (Cardizem Tab) 90 mg Q6HR NG 12/22/19 18:00 01/13/20 11:59 12/26/19 13:02 Docusate Sodium (Colace) 100 mg BID NG 12/25/19 09:00 01/24/20 08:59 12/26/19 09:54 Enoxaparin Sodium (Lovenox) 60 mg DAILY SUBQ 12/23/19 09:00 03/22/20 08:59 Famotidine (Pepcid I.v.) 20 mg Q12HR IVP 12/25/19 09:00 01/24/20 08:59 12/26/19 09:54 Fentanyl Citrate 250 ml @ 0 mls/hr Q24H IV 12/25/19 22:30 12/27/19 22:00 12/25/19 23:33 Furosemide (Lasix) 40 mg Q6HR IV 12/25/19 12:00 01/24/20 11:59 12/26/19 11:26 Heparin Sodium/ Sodium Chloride (Heparin 1000 units/500ml Premix) 1,000 unit ONCE PRN IV PICC LINE 12/24/19 17:15 12/26/19 23:59 Insulin Aspart (NovoLOG) BEFORE MEALS AND HS SUBQ 12/23/19 11:30 03/22/20 11:29 12/26/19 12:51 Lidocaine HCl (Xylocaine 1% 30ml) 30 ml ONCE PRN INJ PICC LINE 12/24/19 17:15 12/26/19 23:59 Linezolid 300 ml @ 300 mls/hr Q12HR IVPB 12/25/19 21:00 12/29/19 20:59 12/26/19 09:54 Lorazepam (Ativan 2mg/ml 1ml) 2 mg Q2H PRN IV For Anxiety 12/24/19 13:30 12/31/19 13:29 12/25/19 23:34 Magnesium Hydroxide (Mom) 30 ml HSPRN PRN NG Constipation 12/22/19 15:15 01/21/20 15:14 Meropenem 500 mg/ Sodium Chloride 55 ml @ 110 mls/hr Q12H IVPB 12/23/19 16:00 12/28/19 15:59 12/26/19 05:07 Metoprolol Tartrate (Lopressor) 50 mg Q12HR NG 12/22/19 21:00 03/18/20 20:59 12/25/19 08:12 Micafungin Sodium 100 mg/Sodium Chloride 110 ml @ 110 mls/hr Q24H IVPB 12/23/19 09:00 12/28/19 08:59 12/26/19 11:27 Miscellaneous Medication (Remdesivir Fact Sheet) 1 ea ONCE PRN MISC Pt currently sedated 12/24/19 10:30 01/03/20 10:29 Nitroglycerin (Ntg) 0.4 mg Q5M PRN SL Prn Chest Pain 12/22/19 15:00 01/11/20 22:14 Ondansetron HCl (Zofran) 4 mg Q6H PRN IVP Nausea & Vomiting 12/22/19 15:15 01/11/20 15:14 Polyethylene Glycol (Miralax) 17 gm BEDTIME NG 12/22/19 21:00 01/18/20 20:59 12/25/19 20:07 Polymyxin B Sulfate 769763 units/Dextrose 550 ml @ 550 mls/hr EVERY 12 HOURS IV 12/23/19 13:00 12/30/19 12:59 12/26/19 09:53 Remdesivir 100 mg/ Sodium Chloride 250 ml @ 250 mls/hr Q24H IV 12/25/19 14:00 01/02/20 14:59 12/25/19 13:11 Risperidone (RisperDAL) 2 mg BEDTIME NG 12/22/19 21:00 02/04/20 20:59 12/25/19 20:05 Aleisha Coronel MD Dec 26, 2019 13:37
[2019-12-26] MEDS: Enoxaparin 60mg Inj SUBQ SCH (13:39)
[2019-12-26] MEDS: [UNRECOGNIZED DRUG - OTHER] IV SCH ×2 (14:31)
[2019-12-26] MEDS: REMDESIVIR IV SCH ×2 (14:31)
--- NOTE | 2019-12-26 14:35 | Surgery Progress Note ---
Surgery Progress Note Subjective Additional Comments right leg hematoma stable critically ill and edema on right leg has compromised dermis over the hematoma. will likely need debridement once improved Objective Last 24 Hour Vital Signs Date Time Temp Pulse Resp B/P (MAP) Pulse Ox O2 Delivery O2 Flow Rate FiO2 12/26/19 13:02 82 100/75 12/26/19 13:00 112 18 100/75 (83) 96 12/26/19 12:00 99.9 79 18 109/59 (76) 100 12/26/19 11:00 73 18 110/64 (79) 100 12/26/19 10:40 69 18 40 12/26/19 10:00 79 16 95/56 (69) 98 12/26/19 10:00 40 12/26/19 09:00 87 16 94/57 (69) 98 12/26/19 09:00 68 95/56 12/26/19 08:00 86 12/26/19 08:00 Mechanical Ventilator 12/26/19 08:00 99.5 117 17 148/122 (131) 89 12/26/19 07:39 40 12/26/19 07:39 130 19 40 12/26/19 07:00 66 1 105/57 (73) 98 12/26/19 06:33 16 110/44 Mechanical Ventilator 40 12/26/19 06:00 89 16 110/47 (68) 98 12/26/19 05:33 20 117/52 Mechanical Ventilator 40 12/26/19 05:30 () 12/26/19 05:07 79 111/54 12/26/19 05:00 77 16 111/54 (73) 99 12/26/19 04:33 16 110/50 Mechanical Ventilator 40 12/26/19 04:30 () 12/26/19 04:00 Mechanical Ventilator 12/26/19 04:00 99.5 70 15 119/56 (77) 98 12/26/19 04:00 40 12/26/19 04:00 77 12/26/19 03:33 20 117/52 Mechanical Ventilator 40.0 40 12/26/19 03:30 () 12/26/19 03:00 78 15 115/45 (68) 96 12/26/19 02:34 78 16 40 12/26/19 02:33 21 98/47 Mechanical Ventilator 40 12/26/19 02:30 89 17 98/47 (64) 97 12/26/19 02:00 102 21 121/61 (81) 91 12/26/19 01:33 17 120/64 Mechanical Ventilator 40 12/26/19 01:00 106 17 95/64 (74) 91 12/26/19 00:33 16 106/53 Mechanical Ventilator 40 12/26/19 00:30 65 16 106/53 (70) 97 12/26/19 00:04 67 16 110/63 100 12/26/19 00:00 Mechanical Ventilator 12/26/19 00:00 40 12/26/19 00:00 68 12/26/19 00:00 99.4 102 15 111/53 (72) 97 12/25/19 23:34 120 21 65/43 99 12/25/19 23:34 99 120/65 12/25/19 23:33 22 127/65 Mechanical Ventilator 40 12/25/19 23:30 133 22 126/85 (99) 97 12/25/19 23:24 127 21 40 12/25/19 23:15 84 16 95/43 (60) 99 12/25/19 23:00 80 16 107/52 (70) 99 12/25/19 22:30 71 16 121/56 (77) 99 12/25/19 22:00 100.5 73 16 109/55 (73) 99 12/25/19 21:00 70 16 108/46 (66) 100 12/25/19 20:36 100.5 12/25/19 20:30 93 18 102/39 (60) 97 12/25/19 20:07 62 98/47 12/25/19 20:05 88 17 119/56 100 12/25/19 20:00 70 12/25/19 20:00 100.9 71 16 119/56 (77) 97 12/25/19 20:00 50 12/25/19 20:00 Mechanical Ventilator 12/25/19 19:30 62 16 109/58 (75) 97 12/25/19 19:30 62 16 40 12/25/19 19:01 16 98/47 Endotracheal Tube 50 12/25/19 19:00 57 16 98/47 (64) 95 12/25/19 18:01 16 86/43 Endotracheal Tube 50 12/25/19 18:00 74 16 87/40 (56) 95 12/25/19 17:41 84 102/45 12/25/19 17:30 67 102/45 (64) 12/25/19 17:13 69 16 117/59 100 12/25/19 17:01 45 87/47 Endotracheal Tube 50 12/25/19 17:00 131 147/48 (81) 12/25/19 16:30 72 19 106/54 (71) 98 12/25/19 16:01 22 109/71 Endotracheal Tube 50 12/25/19 16:00 50 12/25/19 16:00 97.7 73 17 102/55 (71) 98 12/25/19 16:00 Mechanical Ventilator 12/25/19 16:00 83 12/25/19 15:28 40 12/25/19 15:27 69 16 50 12/25/19 15:01 17 117/59 Endotracheal Tube 40 12/25/19 15:00 73 17 117/59 (78) 100 I&O Intake and Output 12/25/19 12/26/19 19:00 07:00 Intake Total 2944.8167 ml 3582 ml Output Total 1560 ml 2165 ml Balance 1384.8167 ml 1417 ml Free Water 100 ml 20 ml IV Total 2574.8167 ml 3202 ml Tube Feeding 270 ml 360 ml Output Urine Total 1560 ml 2165 ml # Bowel Movements 1 2 Dressing: other Wound: other Cardiovascular: RSR Respiratory: decreased breath sounds Abdomen: soft, non-tender, present bowel sounds Extremities: edema, cyanosis, no tenderness, other Laboratory Tests Test 12/25/19 17:55 12/26/19 04:00 12/26/19 08:26 12/26/19 10:10 Urine Color Yellow Urine Appearance Clear Urine pH 5 (4.5-8.0) Urine Specific Leivasy 1.010 (1.005-1.035) Urine Protein Negative (NEGATIVE) Urine Glucose (UA) Negative (NEGATIVE) Urine Ketones Negative (NEGATIVE) Urine Blood Negative (NEGATIVE) Urine Nitrite Negative (NEGATIVE) Urine Bilirubin Negative (NEGATIVE) Urine Urobilinogen 1 MG/DL (0.0-1.0) H Urine Leukocyte Esterase Negative (NEGATIVE) White Blood Count 8.3 K/UL (4.8-10.8) Red Blood Count 2.72 M/UL (4.20-5.40) L Hemoglobin 7.6 G/DL (12.0-16.0) L Hematocrit 23.5 % (37.0-47.0) L Mean Corpuscular Volume 86 FL (80-99) Mean Corpuscular Hemoglobin 28.1 PG (27.0-31.0) Mean Corpuscular Hemoglobin Concent 32.4 G/DL (32.0-36.0) Red Cell Distribution Width 16.1 % (11.6-14.8) H Platelet Count 126 K/UL (150-450) L Mean Platelet Volume 7.5 FL (6.5-10.1) Neutrophils (%) (Auto) % (45.0-75.0) Lymphocytes (%) (Auto) % (20.0-45.0) Monocytes (%) (Auto) % (1.0-10.0) Eosinophils (%) (Auto) % (0.0-3.0) Basophils (%) (Auto) % (0.0-2.0) Sodium Level 148 MMOL/L (136-145) H Potassium Level 4.5 MMOL/L (3.5-5.1) Chloride Level 111 MMOL/L (98-107) H Carbon Dioxide Level 29 MMOL/L (21-32) Anion Gap 8 mmol/L (5-15) Blood Urea Nitrogen 66 mg/dL (7-18) H Creatinine 1.8 MG/DL (0.55-1.30) H Estimat Glomerular Filtration Rate 28.0 mL/min (>60) Glucose Level 128 MG/DL (74-106) H Calcium Level 8.0 MG/DL (8.5-10.1) L Total Bilirubin 0.7 MG/DL (0.2-1.0) Direct Bilirubin 0.3 MG/DL (0.0-0.3) Aspartate Amino Transf (AST/SGOT) 15 U/L (15-37) Alanine Aminotransferase (ALT/SGPT) 15 U/L (12-78) Alkaline Phosphatase 58 U/L (46-116) C-Reactive Protein, Quantitative 16.1 mg/dL (0.00-0.90) H Total Protein 6.2 G/DL (6.4-8.2) L Albumin 1.5 G/DL (3.4-5.0) L Globulin 4.7 g/dL Albumin/Globulin Ratio 0.3 (1.0-2.7) L Arterial Blood pH 7.264 (7.350-7.450) Arterial Blood Partial Pressure CO2 69.1 mmHg (35.0-45.0) *H Arterial Blood Partial Pressure O2 70.1 mmHg (75.0-100.0) L Arterial Blood HCO3 30.6 mmol/L (22.0-26.0) H Arterial Blood Oxygen Saturation 90.2 % (95-100) L Arterial Blood Base Excess 2.5 (-2-2) H Eugene Test Positive Miscellaneous Test Pending Plan Problems: (1) Urinary tract infection (2) CHF exacerbation (3) History of schizophrenia (4) Atrial fibrillation with RVR (5) Schizophrenia (6) GERD (gastroesophageal reflux disease) (7) Smoker (8) Atrial fibrillation with rapid ventricular response (9) Lymphadema (10) COPD (chronic obstructive pulmonary disease) (11) CKD (chronic kidney disease) stage 3, GFR 30-59 ml/min (12) NATALIE (acute kidney injury) (13) Dehydration (14) Dysphagia (15) UTI (urinary tract infection) (16) UGI bleed (17) ESBL (extended spectrum beta-lactamase) producing bacteria infection (18) Constipation (19) Lactic acidosis (20) Tinea cruris (21) Onychomycosis (22) Emesis (23) Essential hypertension (24) Anemia (25) Cough (26) Depression (27) Depression (28) Edema (29) Rash (30) Opiate dependence (31) Opiate dependence (32) Opiate dependence (33) Opiate dependence (34) Pyelonephritis (35) Sepsis (36) UTI (urinary tract infection) (37) Nausea and vomiting (38) Abdominal pain Assessment & Plan: [age]-year-old female obese white abdominal pain deep tissue injury identified limited mobility on HD. KUB noted tube in place continue meds feeds Does not seem obstructed We will monitor FINDINGS: Lower thorax: Obscuration of the left costophrenic angle suggestive of pleural effusion. Intraperitoneal space: No free air. Gastrointestinal tract: Unremarkable. No dilation. Bones/joints: Unremarkable. Tubes, lines and devices: The nasogastric tube has the tip at the mid inferior aspect of the gastric body. Other findings: Nonspecific gas pattern. Single frontal view of the abdomen demonstrates tip of the enteric tube and distal side-port projecting over the stomach. Gas is identified within the nondistended large bowel. There is a paucity of small bowel gas seen. Partially visualized left pleural effusion. No other significant interval change. (39) Chest pain (40) Chest pain (41) Nausea (42) Obesity (43) Chronic ulcer of leg (44) Chronic ulcer of leg (45) Chronic ulcer of leg (46) ACS (acute coronary syndrome) (47) Acute chest pain (48) Encounter for dressing change or suture removal (49) Left leg cellulitis (50) Acute encephalopathy (51) Encounter for wound re-check (52) Intractable nausea and vomiting (53) Infection due to ESBL-producing Escherichia coli (54) Chronic venous stasis (55) Change of dressing (56) Change of dressing (57) Change of dressing (58) Change of dressing (59) Change of dressing (60) Change of dressing (61) Change of dressing (62) Change of dressing (63) ESBL urine (64) Lymphadema (65) Lymphedema (66) Lymphedema (67) Lymphedema (68) Lymphedema (69) Lymphedema (70) Lymphedema (71) Lymphedema (72) Lymphedema (73) Open wound of foot (74) Open wound of foot (75) cellulitis (76) chronic lymphedema (77) chronic lymphedema (78) chronic lymphedema (79) hypertension uncontrolled (80) hypertension uncontrolled (81) Intertrigo (82) Sciatica (83) Cellulitis (84) Schizophrenia (85) Chronic bronchitis (86) HTN (hypertension) (87) Venous stasis ulcers (88) Medication refill (89) Chest pain, atypical (90) BMI 45.0-49.9, adult (91) Lymphedema of both lower extremities (92) hypertension uncontrolled (93) hypertension uncontrolled (94) hypertension uncontrolled (95) tenia corpus (96) Deep tissue injury Assessment & Plan: Morbidly obese pt whom presented on admission with Pressure injuries, Edemae bilat lower extremities eschar to dorsal aspects of metatarsals. Pt is very demanding of staff and can be resistive to repositioning. DTPI noted to L Sacrum(L)5.5cm x (W)2.5cm. Base of Pressure Injury is Maroon and indurated with surrounding non-blanchable erythema DTPI R Sacrum(L)5.5cm x (W)2.3cm. Base of Pressure Injury is maroon with purpuric center that is fluctuant. Pt complained of tenderness when minimally palpated. Bilat lower extremities are edematous . Dry eschar noted to nail matrix and tip of L 1st metatarsal, Dorsal L 2nd metatarsal, R 2nd and R 4th metatarsals. Both heels are boggy with non-Blanchable erythema. blisters forming on Right lower extremity anterior tibia. not infected cellulitis / edema on b/l le stable cont abx Tx.Plan: Apply Moisture Barrier Paste to Sacrum R and L gluteal cheeks. Cover with Optifoam drsgs. Change every 3 days and prn. Apply Betadine to dry eschar metatarsals both feet Daily. Apply Cavilon Skin Barrier to both heels. Cover each heel with Optifoam drsgs. Change every 7days and prn. Reposition at least every 2hours or as tolerated. Off-load heels with pillow. right leg hematoma stable critically ill and edema on right leg has compromised dermis over the hematoma. will likely need debridement once improved (97) COVID-19 Assessment & Plan: ++ on vent weaning abx as per ID (98) Respiratory failure (99) Pneumonia Juan Manuel Buckner Dec 26, 2019 14:35
[2019-12-26] MEDS: fentaNYL 2500mcg/NS 250ml 250 ML IV SCH (14:45)
--- NOTE | 2019-12-26 14:53 | NUR ---
NURSE NOTES: PICC Line inserted on the right upper arm, chest X ray taken and awaiting for placement confirmation.
--- NOTE | 2019-12-26 15:38 | Pre-Procedure Note/Attestation ---
Pre-Procedure Note/Attestation Complete Prior to Procedure Planned Procedure: not applicable Procedure Narrative: picc line placement Indications for Procedure Pre-Operative Diagnosis: need iv access Attestation no family to provide consent. urgent need for procedure documented in the medical record by the primary physician, who gave consent. Joey Astorga M.D. Dec 26, 2019 15:38
--- NOTE | 2019-12-26 15:44 | Diagnostic Imaging Report ---
Indications: Needs long-term IV access Technique: Procedure performed at bedside. Procedural timeout performed. Ultrasound confirms patent compressible left basilic vein. Total sterile technique, including sterile probe cover and sterile gel, sterile gloves, hand hygiene, hat, mask,, sterile gown, large sterile drape, and preparation with 2% chlorhexidine utilized. Local anesthesia with 1% lidocaine. Under real-time ultrasound guidance, puncture basilic vein using 21-gauge needle, passage 0.018 guidewire, exchange for 4.5 Czech peel-away sheath. 4French dual-lumen power PICC cut to 3 cm. It was inserted through the peel-away sheath. Peel-away sheath and guidewire removed. Catheter fixed to the skin. Both catheter ports aspirated and flushed. Patient tolerated procedure well, without immediate complication. Followup chest x-ray obtained, documents catheter tip position at the left subclavian/innominate vein. Impression: Successful bedside placement of 4 Czech PICC under sonographic guidance, as described above.
[2019-12-26] MEDS ORDERED: D5W 550ml IV ONE (16:10)
[2019-12-26] MEDS ORDERED: NS 275ml ONE (16:10)
--- NOTE | 2019-12-26 16:22 | General Progress Note ---
Subjective ROS Limited/Unobtainable: Yes Allergies: Coded Allergies: ERYTHROMYCIN BASE (Verified Allergy, Severe, 12/12/19) HALOPERIDOL (Verified Allergy, Unknown, 12/12/19) VANCOMYCIN (Unverified Adverse Reaction, Intermediate, Shortness of Breath, 12/12/19) Objective Last 24 Hour Vital Signs Date Time Temp Pulse Resp B/P (MAP) Pulse Ox O2 Delivery O2 Flow Rate FiO2 12/26/19 16:00 40 12/26/19 15:33 18 138/60 Mechanical Ventilator 40 12/26/19 14:45 18 96/46 Mechanical Ventilator 40 12/26/19 14:33 18 146/68 Mechanical Ventilator 40 12/26/19 13:33 18 100/75 Mechanical Ventilator 40 12/26/19 13:02 82 100/75 12/26/19 13:00 112 18 100/75 (83) 96 12/26/19 12:33 18 109/59 Mechanical Ventilator 40 12/26/19 12:00 99.9 79 18 109/59 (76) 100 12/26/19 12:00 40 12/26/19 11:33 18 110/64 Mechanical Ventilator 40 12/26/19 11:00 73 18 110/64 (79) 100 12/26/19 10:40 69 18 40 12/26/19 10:33 16 95/56 Mechanical Ventilator 40 12/26/19 10:00 79 16 95/56 (69) 98 12/26/19 10:00 40 12/26/19 09:33 16 94/57 Mechanical Ventilator 40 12/26/19 09:00 87 16 94/57 (69) 98 12/26/19 09:00 68 95/56 12/26/19 08:33 17 148/122 Mechanical Ventilator 40 12/26/19 08:00 86 12/26/19 08:00 Mechanical Ventilator 12/26/19 08:00 99.5 117 17 148/122 (131) 89 12/26/19 07:39 40 12/26/19 07:39 130 19 40 12/26/19 07:33 16 100/50 Mechanical Ventilator 40 12/26/19 07:00 66 1 105/57 (73) 98 12/26/19 06:33 16 110/44 Mechanical Ventilator 40 12/26/19 06:00 89 16 110/47 (68) 98 12/26/19 05:33 20 117/52 Mechanical Ventilator 40 12/26/19 05:30 () 12/26/19 05:07 79 111/54 12/26/19 05:00 77 16 111/54 (73) 99 12/26/19 04:33 16 110/50 Mechanical Ventilator 40 12/26/19 04:30 () 12/26/19 04:00 Mechanical Ventilator 12/26/19 04:00 99.5 70 15 119/56 (77) 98 12/26/19 04:00 40 12/26/19 04:00 77 12/26/19 03:33 20 117/52 Mechanical Ventilator 40.0 40 12/26/19 03:30 () 12/26/19 03:00 78 15 115/45 (68) 96 12/26/19 02:34 78 16 40 12/26/19 02:33 21 98/47 Mechanical Ventilator 40 12/26/19 02:30 89 17 98/47 (64) 97 12/26/19 02:00 102 21 121/61 (81) 91 12/26/19 01:33 17 120/64 Mechanical Ventilator 40 12/26/19 01:00 106 17 95/64 (74) 91 12/26/19 00:33 16 106/53 Mechanical Ventilator 40 12/26/19 00:30 65 16 106/53 (70) 97 12/26/19 00:04 67 16 110/63 100 12/26/19 00:00 Mechanical Ventilator 12/26/19 00:00 40 12/26/19 00:00 68 12/26/19 00:00 99.4 102 15 111/53 (72) 97 12/25/19 23:34 120 21 65/43 99 12/25/19 23:34 99 120/65 12/25/19 23:33 22 127/65 Mechanical Ventilator 40 12/25/19 23:30 133 22 126/85 (99) 97 12/25/19 23:24 127 21 40 12/25/19 23:15 84 16 95/43 (60) 99 12/25/19 23:00 80 16 107/52 (70) 99 12/25/19 22:30 71 16 121/56 (77) 99 12/25/19 22:00 100.5 73 16 109/55 (73) 99 12/25/19 21:00 70 16 108/46 (66) 100 12/25/19 20:36 100.5 12/25/19 20:30 93 18 102/39 (60) 97 12/25/19 20:07 62 98/47 12/25/19 20:05 88 17 119/56 100 12/25/19 20:00 70 12/25/19 20:00 100.9 71 16 119/56 (77) 97 12/25/19 20:00 50 12/25/19 20:00 Mechanical Ventilator 12/25/19 19:30 62 16 109/58 (75) 97 12/25/19 19:30 62 16 40 12/25/19 19:01 16 98/47 Endotracheal Tube 50 12/25/19 19:00 57 16 98/47 (64) 95 12/25/19 18:01 16 86/43 Endotracheal Tube 50 12/25/19 18:00 74 16 87/40 (56) 95 12/25/19 17:41 84 102/45 12/25/19 17:30 67 102/45 (64) 12/25/19 17:13 69 16 117/59 100 12/25/19 17:01 45 87/47 Endotracheal Tube 50 12/25/19 17:00 131 147/48 (81) 12/25/19 16:30 72 19 106/54 (71) 98 Intake and Output 12/25/19 12/26/19 19:00 07:00 Intake Total 2944.8167 ml 3582 ml Output Total 1560 ml 2165 ml Balance 1384.8167 ml 1417 ml Free Water 100 ml 20 ml IV Total 2574.8167 ml 3202 ml Tube Feeding 270 ml 360 ml Output Urine Total 1560 ml 2165 ml # Bowel Movements 1 2 Laboratory Tests 12/25/19 17:55: Urine Color Yellow, Urine Appearance Clear, Urine pH 5, Urine Specific Fellows 1.010, Urine Protein Negative, Urine Glucose (UA) Negative, Urine Ketones Negative, Urine Blood Negative, Urine Nitrite Negative, Urine Bilirubin Negative, Urine Urobilinogen 1H, Urine Leukocyte Esterase Negative 12/26/19 04:00: White Blood Count 8.3, Red Blood Count 2.72L, Hemoglobin 7.6L, Hematocrit 23.5L, Mean Corpuscular Volume 86, Mean Corpuscular Hemoglobin 28.1, Mean Corpuscular Hemoglobin Concent 32.4, Red Cell Distribution Width 16.1H, Platelet Count 126L, Mean Platelet Volume 7.5, Neutrophils (%) (Auto) , Lymphocytes (%) (Auto) , Monocytes (%) (Auto) , Eosinophils (%) (Auto) , Basophils (%) (Auto) , Sodium Level 148H, Potassium Level 4.5, Chloride Level 111H, Carbon Dioxide Level 29, Anion Gap 8, Blood Urea Nitrogen 66H, Creatinine 1.8H, Estimat Glomerular Filtration Rate 28.0, Glucose Level 128H, Calcium Level 8.0L, Total Bilirubin 0.7, Direct Bilirubin 0.3, Aspartate Amino Transf (AST/SGOT) 15, Alanine Aminotransferase (ALT/SGPT) 15, Alkaline Phosphatase 58, C-Reactive Protein, Quantitative 16.1H, Total Protein 6.2L, Albumin 1.5L, Globulin 4.7, Albumin/Globulin Ratio 0.3L 12/26/19 08:26: Arterial Blood pH 7.264L, Arterial Blood Partial Pressure CO2 69.1*H, Arterial Blood Partial Pressure O2 70.1L, Arterial Blood HCO3 30.6H, Arterial Blood Oxygen Saturation 90.2L, Arterial Blood Base Excess 2.5H, Eugene Test Positive 12/26/19 10:10: Miscellaneous Test [Pending] Height (Feet): 5 Height (Inches): 6.00 Weight (Pounds): 298 General Appearance: morbidly obese, other - sedated, vent Neck: normal inspection Cardiovascular: regularly irregular Respiratory/Chest: rhonchi - bilaterally Abdomen: non tender Edema: moderate edema Neurologic: unresponsive Skin: other - hematoma r leg Assessment/Plan Problem List: (1) Schizophrenia ICD Codes: F20.9 - Schizophrenia, unspecified SNOMED: 12987715 (2) GERD (gastroesophageal reflux disease) ICD Codes: K21.9 - Gastro-esophageal reflux disease without esophagitis SNOMED: 649130640 (3) Lymphadema (4) Smoker ICD Codes: F17.200 - Nicotine dependence, unspecified, uncomplicated SNOMED: 24511624 (5) Atrial fibrillation with rapid ventricular response ICD Codes: I48.91 - Unspecified atrial fibrillation SNOMED: 649818944217050 (6) CKD (chronic kidney disease) stage 3, GFR 30-59 ml/min ICD Codes: N18.3 - Chronic kidney disease, stage 3 (moderate) SNOMED: 677735254 (7) NATALIE (acute kidney injury) ICD Codes: N17.9 - Acute kidney failure, unspecified SNOMED: 4597603, 87678147 (8) COPD (chronic obstructive pulmonary disease) ICD Codes: J44.9 - Chronic obstructive pulmonary disease, unspecified SNOMED: 13283067 (9) UGI bleed ICD Codes: K92.2 - Gastrointestinal hemorrhage, unspecified SNOMED: 47180041 (10) Dysphagia ICD Codes: R13.10 - Dysphagia, unspecified SNOMED: 67971733, 466628460 (11) UTI (urinary tract infection) ICD Codes: N39.0 - Urinary tract infection, site not specified SNOMED: 01554409 (12) ESBL (extended spectrum beta-lactamase) producing bacteria infection ICD Codes: A49.9 - Bacterial infection, unspecified; Z16.12 - Extended spectrum beta lactamase (ESBL) resistance SNOMED: 346080427 (13) Dehydration ICD Codes: E86.0 - Dehydration SNOMED: 44720720 (14) CHF exacerbation ICD Codes: I50.9 - Heart failure, unspecified SNOMED: 600144776, 08827043840319 (15) Acute respiratory failure ICD Codes: J96.00 - Acute respiratory failure, unspecified whether with hypoxia or hypercapnia SNOMED: 60515459 (16) COVID-19 ICD Codes: U07.1 - COVID-19 SNOMED: 954242284 (17) Pneumonia ICD Codes: J18.9 - Pneumonia, unspecified organism SNOMED: 334844888 (18) Hematoma of lower leg ICD Codes: S80.10XA - Contusion of unspecified lower leg, initial encounter SNOMED: 582648629 Status: stable Assessment/Plan: resp distress, icu, bipap now intubated, worse natalie,, I/O, ,+hematoma RLE stop eliquis ancd asa, lovenox now iv protonix, rx esbl and + vre uti,g+ cocci linezolid , remains high risk, psychotic and hallucinating d/w psych, ID, cardiology, chf wourse and increase lasix ,covid neg prior now +, grave prognosiss, Hb fell to 6.2, needs transfusion, unable to consent , done , lack of iv access and picc needed, unable to sign, icu time 40 min Benjamin Dumont MD Dec 26, 2019 16:22
--- NOTE | 2019-12-26 16:54 | NUR ---
NURSE NOTES: Dr. Dumont updated of patient progress, updated of Dr. Keen is aware of patient ABG results and adjusted the Tidal volumes to 600 and AC increased to 18. tube feeding is now at 40ml/hr on Nepro with no residual noted. PICC line has been inserted on the Left upper arm and chest X-ray has been taken.
--- NOTE | 2019-12-26 17:58 | NUR ---
NURSE NOTES: Patient assessed at the bedside, intubated with Et-tube of 7.5/24cm at the lip with setting of AC 16, TV: 550, Fio2 at 40% with peep of 5. she is saturating at 97-98% with no distress notes, suctioned small tannish thin secretions. tube feeding is at 30ml/hr on Nepro through OG-tube. Lockett is draining clear straw secretions and anchored to the left thigh. will continue to monitor. Addendum: 12/26/19 at 1802 by Jerome Ellison RN time 0745
[2019-12-26] MEDS: LORazepam Inj 2mg/ml 1ml IV PRN ×2 (18:15→20:45)
--- NOTE | 2019-12-26 19:36 | NUR ---
NURSE HAND-OFF REPORT: Latest Vital Signs: Temperature 99.9 , Pulse 96 , B/P 103 /39 , Respiratory Rate 18 , O2 SAT 97 , Mechanical Ventilator, O2 Flow Rate . Vital Sign Comment: EKG Rhythm: Atrial Fibrillation Rhythm change?: N Notified?: Elizabeth Meek MD Response: Latest Abreu Fall Score: 75 Fall Risk: High Risk Safety Measures: Call light Within Reach, Bed Alarm Zone 2, Side Rails Side Rails x3, Bed position Low and Locked. Fall Precautions: Yellow Socks Report given to NOEL Stanley. Patient remains on Fentanyl Drip at 200mcg/hr at rate of 20ml/hr for RASS of -2, she reacts to light pain or shaking.
--- NOTE | 2019-12-26 19:37 | NUR ---
NURSE NOTES: Patient received from Jerome COHEN. Patient is currently orally intubated and sedated with an achieved RASS score of -2. The patient is able to open and close eyes to verbal and tactile stimulus for about 5-7seconds. Patient is orally intubated ETT7.5, 24cm at the lower lip. Vent settings are AC 18, 600Tv, 40% Fio2 and peep of 5. Patient is making appropriated tidal volumes, Spo2 is 100% RR is 22. Ventilator and airway visual safety check performed. Patient has a an NGT with Nepro infusing at 40ml/hr. There is a Lockett catheter noted that is hanging below the waist line and draining yellow colored urine with light sediments. MARBELLA PICC line newly inserted 12/25; with a clean, dry and intact dressing, bio patch visualized and present. Skin alterations noted. p200 mattress noted. Bilateral soft wrist restraints noted, pulses present equal and bilaterally. Safety measures checked. Patients in afib rhythm 80-95, BP is 113/55. Will continue to monitor.
--- NOTE | 2019-12-26 20:30 | NUR ---
NURSE NOTES: Patient assessment performed. Patient was assessed and repositioned. Oral care performed and suctioned patient. Range of motioned was performed as per patient tolerance. Peripheral pulses are present. Airway and ventilator safety checks performed. Patient continues to be in afib rhythm, blood pressure remains stable at this time, will continue to monitor.
[2019-12-26] MEDS: Miralax 17gm pkt NG SCH (20:46)
[2019-12-26] MEDS: Dyna-Hex 2% Top Sol 2oz TOPIC SCH (20:46)
--- NOTE | 2019-12-26 22:00 | NUR ---
NURSE NOTES: Patient assessment performed; all due meds given. Patient peripheral IV line infiltrated. Moved fluids to PICC line. PICC line dressing remains clean, intact and dry. H20 flush given. Afebrile at this time. Patient was given Ativan 2mg for mild agitation. Repositioned and oral care performed. Vitals remains stable. No rhythm changed noticed. Patient making good urine output. Will continue to monitor .
--- NOTE | 2019-12-26 22:46 | Psych Consult Progress Note ---
Psychiatry Progress Note Psychiatry Progress Note Subjective the pt is intubated and on bilat restraints. Medications Current Medications Medications (Trade) Dose Ordered Sig/Shiraz Route PRN Reason Start Time Stop Time Status Last Admin Dose Admin Acetaminophen (Tylenol) 650 mg Q4H PRN NG Temp >100.5 12/22/19 16:00 01/11/20 22:14 12/23/19 13:53 Acetaminophen (Tylenol) 650 mg Q4H PRN NG Mild Pain (Pain Scale 1-3) 12/22/19 16:00 01/11/20 22:14 12/25/19 20:06 Albuterol Sulfate (Proventil MDI) 2 puff Q4H PRN INH Shortness of Breath 12/24/19 10:30 03/23/20 10:29 Bacitracin (Bacitracin 15gm tube) 1 applic BID TOPIC 12/22/19 18:00 03/12/20 08:59 12/26/19 17:36 Chlorhexidine Gluconate (Jessie-Hex 2%) 1 applic DAILY@1999 TOPIC 12/24/19 20:00 03/23/20 19:59 12/26/19 20:46 Clotrimazole (Lotrimin) 1 applic TWICE A DAY TOPIC 12/22/19 18:00 03/12/20 08:59 12/26/19 17:36 Dexamethasone Sodium Phosphate (Decadron 10mg/ ml Inj) 6 mg DAILY IV 12/24/19 09:00 01/03/20 08:59 12/26/19 09:54 Dextrose (Dextrose 50%) 25 ml Q30M PRN IV Hypoglycemia 12/23/19 10:45 03/22/20 10:44 Dextrose (Dextrose 50%) 50 ml Q30M PRN IV Hypoglycemia 12/23/19 10:45 03/22/20 10:44 Diltiazem HCl (Cardizem Tab) 90 mg Q6HR NG 12/22/19 18:00 01/13/20 11:59 12/26/19 18:15 Docusate Sodium (Colace) 100 mg BID NG 12/25/19 09:00 01/24/20 08:59 12/26/19 17:25 Enoxaparin Sodium (Lovenox) 60 mg DAILY SUBQ 12/23/19 09:00 03/22/20 08:59 12/26/19 13:39 Famotidine (Pepcid I.v.) 20 mg Q12HR IVP 12/25/19 09:00 01/24/20 08:59 12/26/19 20:44 Fentanyl Citrate 250 ml @ 0 mls/hr Q24H IV 12/25/19 22:30 12/27/19 22:00 12/26/19 14:45 Furosemide (Lasix) 40 mg Q6HR IV 12/25/19 12:00 01/24/20 11:59 12/26/19 17:24 Heparin Sodium/ Sodium Chloride (Heparin 1000 units/500ml Premix) 1,000 unit ONCE PRN IV PICC LINE 12/24/19 17:15 12/26/19 23:59 Insulin Aspart (NovoLOG) BEFORE MEALS AND HS SUBQ 12/23/19 11:30 03/22/20 11:29 12/26/19 17:27 Lidocaine HCl (Xylocaine 1% 30ml) 30 ml ONCE PRN INJ PICC LINE 12/24/19 17:15 12/26/19 23:59 Linezolid 300 ml @ 300 mls/hr Q12HR IVPB 12/25/19 21:00 12/29/19 20:59 12/26/19 20:45 Lorazepam (Ativan 2mg/ml 1ml) 2 mg Q2H PRN IV For Anxiety 12/24/19 13:30 12/31/19 13:29 12/26/19 20:45 Magnesium Hydroxide (Mom) 30 ml HSPRN PRN NG Constipation 12/22/19 15:15 01/21/20 15:14 Meropenem 500 mg/ Sodium Chloride 55 ml @ 110 mls/hr Q12H IVPB 12/26/19 16:00 12/31/19 15:59 12/26/19 17:25 Metoprolol Tartrate (Lopressor) 50 mg Q12HR NG 12/22/19 21:00 03/18/20 20:59 12/25/19 08:12 Micafungin Sodium 100 mg/Sodium Chloride 110 ml @ 110 mls/hr Q24H IVPB 12/27/19 09:00 01/01/20 08:59 Miscellaneous Medication (Remdesivir Fact Sheet) 1 ea ONCE PRN MISC Pt currently sedated 12/24/19 10:30 01/03/20 10:29 Nitroglycerin (Ntg) 0.4 mg Q5M PRN SL Prn Chest Pain 12/22/19 15:00 01/11/20 22:14 Ondansetron HCl (Zofran) 4 mg Q6H PRN IVP Nausea & Vomiting 12/22/19 15:15 01/11/20 15:14 Polyethylene Glycol (Miralax) 17 gm BEDTIME NG 12/22/19 21:00 01/18/20 20:59 12/26/19 20:46 Polymyxin B Sulfate 006046 units/Dextrose 550 ml @ 550 mls/hr EVERY 12 HOURS IV 12/23/19 13:00 12/30/19 12:59 12/26/19 20:45 Remdesivir 100 mg/ Sodium Chloride 250 ml @ 250 mls/hr Q24H IV 12/25/19 14:00 01/02/20 14:59 12/26/19 14:31 Risperidone (RisperDAL) 2 mg BEDTIME NG 12/22/19 21:00 02/04/20 20:59 12/26/19 20:46 Neurological/Psychiatric: Reports: anxiety, depressed, emotional problems Allergies: Coded Allergies: ERYTHROMYCIN BASE (Verified Allergy, Severe, 12/12/19) HALOPERIDOL (Verified Allergy, Unknown, 12/12/19) VANCOMYCIN (Unverified Adverse Reaction, Intermediate, Shortness of Breath, 12/12/19) Objective Data Height (Feet): 5 Height (Inches): 6.00 Weight (Pounds): 298 General Appearance: morbidly obese, other - sedated, vent Additional Comments: confused. Mood is anxious. Affect is flat. Assessment/Plan [place] I: haldol im prn morphine low dose 1mg q 6 prn Status: stable Status Narrative haldol im prn morphine low dose 1mg q 6 prn Assessment/Plan: haldol im prn morphine low dose 1mg q 6 prn Harris Ballesteros MD Dec 26, 2019 22:46
--- NOTE | 2019-12-26 23:29 | Cardiology Progress Note ---
Subjective DATE OF SERVICE: Dec 26, 2019 Doing poorly - remains in ICU in critical condition with guarded prognosis. Episodes of hypotension persist Now COVID19 positive. Monitor: AFIb Persisting respiratory acidosis req'd intubation and mech ventilation Had coffee ground material in NGTube and hematoma on right leg; anti-coagulation was stopped yesterday Venous Duplex: negative for DVT Renal fxn and free water deficit still impaired Objective Last 24 Hour Vital Signs Date Time Temp Pulse Resp B/P (MAP) Pulse Ox O2 Delivery O2 Flow Rate FiO2 12/26/19 22:57 107 18 40 12/26/19 21:30 89 18 115/49 (71) 97 12/26/19 21:21 101 18 102/47 (65) 96 12/26/19 21:15 65 18 111/50 97 12/26/19 21:00 18 107/26 Mechanical Ventilator 40 12/26/19 21:00 114 18 107/26 (53) 93 12/26/19 20:46 65 111/50 12/26/19 20:45 22 109/55 Mechanical Ventilator 40 12/26/19 20:45 78 18 111/55 97 12/26/19 20:45 80 18 109/50 (69) 97 12/26/19 20:30 80 18 111/55 (73) 98 12/26/19 20:15 75 18 100/60 (73) 97 12/26/19 20:00 99.4 81 18 113/55 (74) 97 12/26/19 19:45 79 18 97/50 (66) 97 12/26/19 19:33 20 94/52 Mechanical Ventilator 40 12/26/19 19:30 84 18 94/52 (66) 97 12/26/19 19:07 96 18 40 12/26/19 19:00 96 18 103/39 (60) 97 12/26/19 18:33 18 103/42 Mechanical Ventilator 40 12/26/19 18:15 137 146/50 12/26/19 18:00 160 20 146/50 (82) 92 12/26/19 17:33 19 135/60 Mechanical Ventilator 40 12/26/19 17:00 86 18 116/53 (74) 99 12/26/19 16:33 18 102/45 Mechanical Ventilator 40 12/26/19 16:00 40 12/26/19 16:00 Mechanical Ventilator 12/26/19 16:00 99.9 91 18 111/57 (75) 97 12/26/19 16:00 108 12/26/19 15:33 18 138/60 Mechanical Ventilator 40 12/26/19 15:00 109 18 138/60 (86) 95 12/26/19 15:00 101 18 40 12/26/19 14:45 18 96/46 Mechanical Ventilator 40 12/26/19 14:33 18 146/68 Mechanical Ventilator 40 12/26/19 14:00 91 18 96/46 (63) 96 12/26/19 13:33 18 100/75 Mechanical Ventilator 40 12/26/19 13:02 82 100/75 12/26/19 13:00 112 18 100/75 (83) 96 12/26/19 12:33 18 109/59 Mechanical Ventilator 40 12/26/19 12:00 Mechanical Ventilator 12/26/19 12:00 70 12/26/19 12:00 99.9 79 18 109/59 (76) 100 12/26/19 12:00 40 12/26/19 11:33 18 110/64 Mechanical Ventilator 40 12/26/19 11:00 73 18 110/64 (79) 100 12/26/19 10:40 69 18 40 12/26/19 10:33 16 95/56 Mechanical Ventilator 40 12/26/19 10:00 79 16 95/56 (69) 98 12/26/19 10:00 40 12/26/19 09:33 16 94/57 Mechanical Ventilator 40 12/26/19 09:00 87 16 94/57 (69) 98 12/26/19 09:00 68 95/56 12/26/19 08:33 17 148/122 Mechanical Ventilator 40 12/26/19 08:00 86 12/26/19 08:00 Mechanical Ventilator 12/26/19 08:00 99.5 117 17 148/122 (131) 89 12/26/19 07:39 40 12/26/19 07:39 130 19 40 12/26/19 07:33 16 100/50 Mechanical Ventilator 40 12/26/19 07:00 66 1 105/57 (73) 98 12/26/19 06:33 16 110/44 Mechanical Ventilator 40 12/26/19 06:00 89 16 110/47 (68) 98 12/26/19 05:33 20 117/52 Mechanical Ventilator 40 12/26/19 05:30 () 12/26/19 05:07 79 111/54 12/26/19 05:00 77 16 111/54 (73) 99 12/26/19 04:33 16 110/50 Mechanical Ventilator 40 12/26/19 04:30 () 12/26/19 04:00 Mechanical Ventilator 12/26/19 04:00 99.5 70 15 119/56 (77) 98 12/26/19 04:00 40 12/26/19 04:00 77 12/26/19 03:33 20 117/52 Mechanical Ventilator 40.0 40 12/26/19 03:30 () 12/26/19 03:00 78 15 115/45 (68) 96 12/26/19 02:34 78 16 40 12/26/19 02:33 21 98/47 Mechanical Ventilator 40 12/26/19 02:30 89 17 98/47 (64) 97 12/26/19 02:00 102 21 121/61 (81) 91 12/26/19 01:33 17 120/64 Mechanical Ventilator 40 12/26/19 01:00 106 17 95/64 (74) 91 12/26/19 00:33 16 106/53 Mechanical Ventilator 40 12/26/19 00:30 65 16 106/53 (70) 97 12/26/19 00:04 67 16 110/63 100 12/26/19 00:00 Mechanical Ventilator 12/26/19 00:00 40 12/26/19 00:00 68 12/26/19 00:00 99.4 102 15 111/53 (72) 97 12/25/19 23:34 120 21 65/43 99 12/25/19 23:34 99 120/65 12/25/19 23:33 22 127/65 Mechanical Ventilator 40 12/25/19 23:30 133 22 126/85 (99) 97 ROS: unchanged from 12/12/19 HEENT: Orally intubated, Mechanically Ventilated, Thin secretions ET Tube, other - NGtube LUNGS: diminished breath sounds CARDIAC: normal S1 and S2, irregularly irregular ABDOMEN: other - obese EXTREMITIES: moderate edema - mostly non pitting, other - hematoma right leg Laboratory Tests Test 12/26/19 04:00 12/26/19 08:26 12/26/19 10:10 12/26/19 21:29 White Blood Count 8.3 K/UL (4.8-10.8) Red Blood Count 2.72 M/UL (4.20-5.40) L Hemoglobin 7.6 G/DL (12.0-16.0) L Hematocrit 23.5 % (37.0-47.0) L Mean Corpuscular Volume 86 FL (80-99) Mean Corpuscular Hemoglobin 28.1 PG (27.0-31.0) Mean Corpuscular Hemoglobin Concent 32.4 G/DL (32.0-36.0) Red Cell Distribution Width 16.1 % (11.6-14.8) H Platelet Count 126 K/UL (150-450) L Mean Platelet Volume 7.5 FL (6.5-10.1) Neutrophils (%) (Auto) % (45.0-75.0) Lymphocytes (%) (Auto) % (20.0-45.0) Monocytes (%) (Auto) % (1.0-10.0) Eosinophils (%) (Auto) % (0.0-3.0) Basophils (%) (Auto) % (0.0-2.0) Sodium Level 148 MMOL/L (136-145) H Potassium Level 4.5 MMOL/L (3.5-5.1) Chloride Level 111 MMOL/L (98-107) H Carbon Dioxide Level 29 MMOL/L (21-32) Anion Gap 8 mmol/L (5-15) Blood Urea Nitrogen 66 mg/dL (7-18) H Creatinine 1.8 MG/DL (0.55-1.30) H Estimat Glomerular Filtration Rate 28.0 mL/min (>60) Glucose Level 128 MG/DL (74-106) H Calcium Level 8.0 MG/DL (8.5-10.1) L Total Bilirubin 0.7 MG/DL (0.2-1.0) Direct Bilirubin 0.3 MG/DL (0.0-0.3) Aspartate Amino Transf (AST/SGOT) 15 U/L (15-37) Alanine Aminotransferase (ALT/SGPT) 15 U/L (12-78) Alkaline Phosphatase 58 U/L (46-116) C-Reactive Protein, Quantitative 16.1 mg/dL (0.00-0.90) H Total Protein 6.2 G/DL (6.4-8.2) L Albumin 1.5 G/DL (3.4-5.0) L Globulin 4.7 g/dL Albumin/Globulin Ratio 0.3 (1.0-2.7) L Arterial Blood pH 7.264 (7.350-7.450) 7.352 (7.350-7.450) Arterial Blood Partial Pressure CO2 69.1 mmHg (35.0-45.0) *H 51.6 mmHg (35.0-45.0) H Arterial Blood Partial Pressure O2 70.1 mmHg (75.0-100.0) L 104.7 mmHg (75.0-100.0) H Arterial Blood HCO3 30.6 mmol/L (22.0-26.0) H 28.0 mmol/L (22.0-26.0) H Arterial Blood Oxygen Saturation 90.2 % (95-100) L 96.2 % (95-100) Arterial Blood Base Excess 2.5 (-2-2) H 2 (-2-2) Eugene Test Positive Positive Miscellaneous Test Pending Microbiology Date/Time Source Procedure Growth Status 12/23/19 23:50 Nasopharynx SARS-CoV-2 RdRp Gene Assay - Final Complete Assessment/Plan Assessment/Plan CRITICAL AND GUARDED Acute respiratory failure Acute on chronic respiratory acidosis AFiB with RVR improved CHF, ac/chr diast - compensated BLE edema Sepsis with shock obesity COPD with bronchospasm Acute renal failure - worsening Pleural effusion GI bleeding Acute diastolic CHF Covid 19 PNA Vent support Monitor acid/base parameters. Antimicrobials Titrate rate-control meds - hold digitalis for elevated levels. Maintain dilt iazem and metoprolol. DC apixaban - hold anticoagulation due to GI bleeding. Hypotonic IVF until po intake improves and free water deficit corrected. Continued media services director Diuresis based on clinical parameters; trend BNP Jerome Meek MD Dec 26, 2019 23:29
[2019-12-27] VITALS (30 sets, daily range): BP systolic 97–146; BP diastolic 41–82
--- NOTE | 2019-12-27 | NUR ---
NURSE NOTES: Midnight meds given. No acute changes. Vitals remain stable. Blood pressure remains within normotensive ranges. Oral care performed and suctioned patient. Range of motion offered. Minimal feed residual noted, about 20ml. Remains afebrile. Patient had BM. Patient was cleaned and new appliance applied.
--- NOTE | 2019-12-27 02:00 | NUR ---
NURSE NOTES: Patient assessment performed; patient remains stable at this time, no acute distress noted, RASS maintained at -2. Patient making good urine out via trivedi. Patient was suctioned and oral care performed. Repositioned patient. Assessed patient for pain using FLACC scoring method; FLACC score is 0/10.
[2019-12-27] MEDS: Meropenem 500 MG in NS 55 ML IVPB SCH ×2 (02:56→15:52)
[2019-12-27] MEDS: LORazepam Inj 2mg/ml 1ml IV PRN ×3 (02:57→17:22)
[2019-12-27] MEDS: fentaNYL 2500mcg/NS 250ml 250 ML IV SCH ×2 (02:58→15:59)
--- NOTE | 2019-12-27 04:00 | NUR ---
NURSE NOTES: Patient given sponge bath. Lockett care performed. Patient remains at RASS score of -2. Suctioned patient and oral care performed. New linen applied. Patient dry and clean. Range of motion performed per patients tolerance. Blood drawn and sent to lab.
[2019-12-27 04:31] LABS: HEMATOCRIT 24.1 % (37.0-47.0); HEMOGLOBIN 7.8 G/DL (12.0-16.0); MEAN CORPUSCULAR VOLUME 86 FL (80-99); PLATELET COUNT 116 K/UL (150-450); RED BLOOD COUNT 2.79 M/UL (4.20-5.40); RED CELL DISTRIBUTION WIDTH 15.6 % (11.6-14.8); WHITE BLOOD COUNT 7.1 K/UL (4.8-10.8)
[2019-12-27 05:00] LABS: ALBUMIN 1.7 G/DL (3.4-5.0); ALBUMIN/GLOBULIN RATIO 0.4 (1.0-2.7); BILIRUBIN,DIRECT 0.4 MG/DL (0.0-0.3); BILIRUBIN,TOTAL 0.8 MG/DL (0.2-1.0); CALCIUM 7.9 MG/DL (8.5-10.1); CREATININE 1.8 MG/DL (0.55-1.30); POTASSIUM 3.6 MMOL/L (3.5-5.1)
[2019-12-27] MEDS: NovoLOG Insulin Flexpen SUBQ SCH ×4 (05:23→21:00)
[2019-12-27] MEDS: dilTIAZem HCl 90mg tab NG SCH ×4 (05:31→23:16)
--- NOTE | 2019-12-27 06:00 | NUR ---
NURSE NOTES: AM meds were given. Glucose noted to be 119, no coverage required per sliding scale. Suctioned and repositioned patient. Patient remains in afib-aflutter rhythm. Blood pressures have remained stable. NAD at this time. Maintaining RASS of -2. Will continue to monitor.
--- NOTE | 2019-12-27 07:30 | NUR ---
RD ASSESSMENT & RECOMMENDATIONS SEE CARE ACTIVITY FOR COMPLETE ASSESSMENT DAILY ESTIMATED NEEDS: Needs based on Obesity, Cardiac, DM, NATALIE, Critical Care/ 80.5kg abw 22-25kg/IBW (59kg) kcals/kg 0244-8338 total kcals 1-2 g protein/kg 80-161 g total protein 20-25 mL/kg 8232-7705 total fluid mLs NUTRITION DIAGNOSIS: 1) Class III Obesity R/T lifestyle factors? excessive energy intake as evidenced by pt w/ BMI >50, @ 245% IBW. 2) Altered nutrition related lab values R/T diabetes, altered lipid metabolism, cardiac hx, NATALIE as evidenced by A1C of 7.1, elev triglyceride 239, elev BNP 4671, elev creat (1.7->4.3 -> 1.8, elev BUN (92 -> 65), elev K (5.4, 5.2 -> wnl->5.3-> wnl), 3) Swallowing difficulty R/T decreased cognitive fxn, respiratory status as evidenced by s/p NGT insertion (12/17), s/p worsening respiratoy status, Covid-19 positive, orally intubated (12/22), NPO. CURRENT TF:Nepro @ 40ml/hr x 24hrs ENTERAL NUTRITION RECOMMENDATIONS: Glucerna 1.5 @ 40ml/hr x 24 hrs to provide 960ml, 1440kcal, 79g prot, 729ml free water * W/ continued improving renal fxn, rec TF change to Glucerna 1.5 * Rec goal rate of 40ml/hr x 24 hrs * HOB over 30 degrees/ water flush per MD ADDITIONAL RECOMMENDATIONS: 1) Calibrated bedscale wt: fluctuating daily wts 2) Monitor renal fxn and lytes, need to continue Nepro -> creat trend down, K wnl, rec TF change to Glucerna 1.5 (See above) 3) Wound healing: add Nephrovite x 1, Vit C 250mg QD, Armand BID via NGT 4) Monitor BGs closely w/ Decadron: NISS now added . .
--- NOTE | 2019-12-27 07:35 | NUR ---
NURSE NOTES: Patient received from NOEL Stanley. patient is sedated to rass scale of -2, no pain is noted using the FLACC scale, left upper arm picc line remains patent and both lumens remains patent. fentanyl is running at 200mcg/hr at rate of 20ml/hr. she is being assisted with a mechanical ventilator with setting of AC 8, TV: 600, FIO2 40% and peep of 5. secretions are noted to be thick through the ET-tube. saturations remain above 95%. no orders for weaning placed in the patient order list at this time. she is on special overlay mattress, her trivedi remains draining clear straw colored urine. she remains on restraints for moments of anxiousness, heppa filter is within the room and working. she is on bilateral wrist restraints for reatching towards ET-tube and moments of anxiousness. tube feeding is running at 40ml/hr though NG-tube,
--- NOTE | 2019-12-27 08:50 | NUR ---
NURSE NOTES: Luz cage assessed patient at the bedside, made aware patient ABG have just been drawn by the RT, will inform of patient ABG results once their are posted. made aware patient had an ABG sample drawn last shift with improved PCO2of 51.6, PH: 7.352, and po2 of 104.7. no orders given at this time.
--- NOTE | 2019-12-27 09:08 | Pulmonolgy Critical Care Note ---
Luz Bowen TANKAGE GRINDER 12/27/19 0908: Critical Care - Asmt/Plan Assessment/Plan: ASSESSMENT acute hypoxemic hypercapnic resp failure, requiring intubation 12/22 COVID 19 PNA sepsis fungemia UTI with E coli ESBL UTI VRE possible aspiration PNA COPD Bronchospasm Atrial fibrillation with rapid ventricular response Congestive heart failure Acute renal failure on CKD Severe anemia Probable GI bleeding Status post ground fall Tobacco dependency Morbid obesity probably GARY Homeless R knee edema and hematoma, likely sprain /strain post fall PLAN OF CARE ICU intubated 12/22 ABG better with AC 18, CXR this am pending, prior CXR no changes fup with CXR and ABG MDI Albuterol in line with vent steroids IV ( started 12/23) and Remdesivir (started 12/24 ) sedation with Fentanyl gtt and Ativan prn DVT prophylaxis with Lovenox prior Venous Duplex BLE -NGT COVID 19 by PCR 12/22 positive isolation [place] 6 52 , initial CRP 15.6, ferritin 769, fup with inflammatory markers CRP up to 26.3, now down to 16.1; ferritin down to 629 on diuresis with Lasix , frequency increased monitor volumes closely creat remains stable rate control- per cardio recs: monitor volumes pro BNP trending down ECHO with pEF no evidence of WMA GI prophylaxis with PPI s/p Venofer x 2 s/p blood transfusion 12/25 monitor HH with goal to keep Hgb >7 GI procedure when stable renal US no hydro, BL nonobstructive stones s/p IV hydration, now resumed again per nephro monitor renal parameters, lytes , e/lyte management as per nephro recs UCX 12/11 + E coli ESBL, BCX 12/16 12 + yeast, fup with yeast ID, ? source BCX 12/17 NGTD BCX 12/22 NGTD UCX 12/16 VRE SCX 12/19 MRSA, ACB MDR now on meropenem , micafungin , Polymyxin and Zyvox -as per ID recs , prior X ray R knee given fall 12/15 , large hematoma, swelling-no fx or dislocation ice R knee and elevate CT head no acute IC pathology fall precautions prior declined Nicotine patch discussion on weight loss if receptive - not at this time; anxious and wants to go home pain management anxiolytic prn SW consult for placement case discussed and evaluated by supervising physician ivy mccarty for a consult! Critical Care - Objective Last 24 Hour Vital Signs Date Time Temp Pulse Resp B/P (MAP) Pulse Ox O2 Delivery O2 Flow Rate FiO2 12/27/19 07:29 85 18 40 12/27/19 06:13 18 109/47 Mechanical Ventilator 40 12/27/19 06:00 70 18 109/47 (67) 97 12/27/19 05:31 74 115/51 12/27/19 05:13 18 106/57 Mechanical Ventilator 40 12/27/19 05:00 77 18 106/57 (73) 96 12/27/19 04:13 18 100/48 Mechanical Ventilator 40 12/27/19 04:00 98.9 79 18 100/48 (65) 97 12/27/19 04:00 40 12/27/19 04:00 Mechanical Ventilator 12/27/19 03:45 80 18 108/53 (71) 97 12/27/19 03:30 85 18 106/52 (70) 97 12/27/19 03:30 83 12/27/19 03:27 86 18 106/52 100 12/27/19 03:13 18 118/51 Mechanical Ventilator 40 12/27/19 03:08 109 19 40 12/27/19 03:00 107 15 118/51 (73) 96 12/27/19 02:58 18 109/56 Mechanical Ventilator 40 12/27/19 02:57 104 18 109/56 98 12/27/19 02:00 18 127/53 Mechanical Ventilator 40 12/27/19 02:00 69 18 127/53 (77) 97 12/27/19 01:00 61 18 101/47 (65) 97 12/27/19 01:00 20 101/47 Mechanical Ventilator 40 12/27/19 00:30 75 18 108/51 (70) 97 12/27/19 00:00 99.4 90 18 109/51 (70) 97 12/27/19 00:00 40 12/27/19 00:00 19 109/51 Mechanical Ventilator 40 12/27/19 00:00 Mechanical Ventilator 12/26/19 23:59 98 103/57 12/26/19 23:58 91 12/26/19 23:30 100 18 87/47 (60) 96 12/26/19 23:00 18 108/45 Mechanical Ventilator 40 12/26/19 23:00 104 18 108/45 (66) 100 12/26/19 22:57 107 18 40 12/26/19 22:30 118 18 129/44 (72) 95 12/26/19 22:00 114 18 125/45 (71) 95 12/26/19 22:00 16 125/45 Mechanical Ventilator 40 12/26/19 21:30 89 18 115/49 (71) 97 12/26/19 21:21 101 18 102/47 (65) 96 12/26/19 21:15 65 18 111/50 97 12/26/19 21:00 18 107/26 Mechanical Ventilator 40 12/26/19 21:00 114 18 107/26 (53) 93 12/26/19 20:46 65 111/50 12/26/19 20:45 22 109/55 Mechanical Ventilator 40 12/26/19 20:45 78 18 111/55 97 12/26/19 20:45 80 18 109/50 (69) 97 12/26/19 20:30 80 18 111/55 (73) 98 12/26/19 20:15 75 18 100/60 (73) 97 12/26/19 20:00 99.4 81 18 113/55 (74) 97 12/26/19 20:00 40 12/26/19 20:00 Mechanical Ventilator 12/26/19 19:45 79 18 97/50 (66) 97 12/26/19 19:33 20 94/52 Mechanical Ventilator 40 12/26/19 19:32 87 12/26/19 19:30 84 18 94/52 (66) 97 12/26/19 19:07 96 18 40 12/26/19 19:00 96 18 103/39 (60) 97 12/26/19 18:55 105 18 103/39 96 12/26/19 18:33 18 103/42 Mechanical Ventilator 40 12/26/19 18:15 160 20 146/50 92 12/26/19 18:15 137 146/50 12/26/19 18:00 160 20 146/50 (82) 92 12/26/19 17:33 19 135/60 Mechanical Ventilator 40 12/26/19 17:00 86 18 116/53 (74) 99 12/26/19 16:33 18 102/45 Mechanical Ventilator 40 12/26/19 16:00 40 12/26/19 16:00 Mechanical Ventilator 12/26/19 16:00 99.9 91 18 111/57 (75) 97 12/26/19 16:00 108 12/26/19 15:33 18 138/60 Mechanical Ventilator 40 12/26/19 15:00 109 18 138/60 (86) 95 12/26/19 15:00 101 18 40 12/26/19 14:45 18 96/46 Mechanical Ventilator 40 12/26/19 14:33 18 146/68 Mechanical Ventilator 40 12/26/19 14:00 91 18 96/46 (63) 96 12/26/19 13:33 18 100/75 Mechanical Ventilator 40 12/26/19 13:02 82 100/75 12/26/19 13:00 112 18 100/75 (83) 96 12/26/19 12:33 18 109/59 Mechanical Ventilator 40 12/26/19 12:00 Mechanical Ventilator 12/26/19 12:00 70 12/26/19 12:00 99.9 79 18 109/59 (76) 100 12/26/19 12:00 40 12/26/19 11:33 18 110/64 Mechanical Ventilator 40 12/26/19 11:00 73 18 110/64 (79) 100 12/26/19 10:40 69 18 40 12/26/19 10:33 16 95/56 Mechanical Ventilator 40 12/26/19 10:00 79 16 95/56 (69) 98 12/26/19 10:00 40 12/26/19 09:33 16 94/57 Mechanical Ventilator 40 Objective: General Appearance: morbidly obese , sedated, on vent AC 600-18-40% PEEP 5 Lines, tubes and drains: peripheral HEENT: normocephalic, atraumatic, anicteric, NGT in , OP with ET Neck: non-tender Respiratory/Chest: chest wall non-tender, no accessory muscle use, decreased breath sounds; Cardiovascular/Chest: irregularly irregular - A fib , tachy at times , distant heart sounds, PICC in place Abdomen: normal bowel sounds, non tender , obese, soft Extremities: no calf tenderness, moderate edema - +3 BLE, R knee with large hematoma, edema, Skin Exam: warm/dry, multiple tattoos Neurologic: sedated Musculoskeletal: normal muscle bulk Micro: Microbiology Date/Time Source Procedure Growth Status 12/25/19 15:45 Blood Blood Culture - Preliminary NO GROWTH AFTER 24 HOURS Resulted 12/25/19 15:35 Blood Blood Culture - Preliminary NO GROWTH AFTER 24 HOURS Resulted Accucheck: 119 Critical Care - Subjective ROS Limited/Unobtainable: Yes Interval Events: no fevers this am , no leukocytosis ABG better after AC increased to 18 CXR pending for this am sedated, on Fentanyl gtt creat remains stable now off IVF om diuresis increased frequency Hgb -7.8 Condition: critical IV Access: PICC EKG Rhythm: Atrial Fibrillation FI02: 40 Vent Support Breath Rate: 18 Vent Support Mode: AC Vent Tidal Volume: 600 Sputum Amount: Small PEEP: 5.0 PIP: 42 Drips: Fentanyl gtt 200 mcg/hr Tube Feeding Amount: 40 I&O: Intake and Output 12/26/19 12/27/19 19:00 07:00 Intake Total 3111.06322 ml 1678 ml Output Total 1080 ml 2025 ml Balance 2031.19205 ml -347 ml Free Water 80 ml 140 ml IV Total 2561.64663 ml 1098 ml Tube Feeding 450 ml 440 ml Other 20 ml Output Urine Total 1080 ml 2025 ml # Bowel Movements 1 CXR: CXR 12/25 Endotracheal tube and NG tube remain in place. Hazy bilateral alveolar densities are essentially unchanged given the difference in technique. Cardiomegaly and right effusion again noted. The bony thorax appear unremarkable. ET-Tube: 7.5 ET Position: 24 Colt Kene MD 12/27/192121: Critical Care - Asmt/Plan Assessment/Plan: Patient seen and examined with TANKAGE GRINDER and I agree with the above formulated assessment and plan. Time Spent (Minutes): 40 - cc Luz Bowen NP Dec 27, 2019 09:08 Colt Keen MD Dec 27, 2019 21:22
--- NOTE | 2019-12-27 09:30 | NUR ---
RADIOLOGY DEPT., CHEST X-RAY DONE.-P.DYE
[2019-12-27] MEDS: Polymyxin B Sulfate 500,000 units in D5W 550ml IV SCH ×2 (09:39→21:02)
[2019-12-27] MEDS: Metoprolol Tartrate 50mg tab NG SCH ×2 (09:40→21:02)
[2019-12-27] MEDS: Docusate 100mg/10ml Liq NG SCH ×2 (09:40→17:22)
[2019-12-27] MEDS: dexAMETHasone 10mg/ml Inj IV SCH (09:41)
[2019-12-27] MEDS: Enoxaparin 60mg Inj SUBQ SCH (09:42)
[2019-12-27] MEDS: Bacitracin Oint 15gm Tube TOPIC SCH ×2 (09:42→17:33)
--- NOTE | 2019-12-27 09:50 | NUR ---
NURSE NOTES: Dr. Buckner assessed patient hematoma on the right leg, no changes given at this time. steve Sutherland is awaiting for patients status to improve to progress with treatment, no orders given at this time.
--- NOTE | 2019-12-27 10:50 | Surgery Progress Note ---
Surgery Progress Note Subjective Additional Comments ill appearing no nv labs noted edema with ischemia Objective Last 24 Hour Vital Signs Date Time Temp Pulse Resp B/P (MAP) Pulse Ox O2 Delivery O2 Flow Rate FiO2 12/27/19 10:29 76 18 110/49 100 12/27/19 10:00 106 20 97/56 (70) 91 12/27/19 09:40 114 18 119/60 94 12/27/19 09:40 114 119/60 12/27/19 09:00 112 18 113/41 (65) 92 12/27/19 08:00 100.1 99 18 118/57 (77) 97 12/27/19 08:00 40 12/27/19 07:29 85 18 40 12/27/19 07:00 63 18 115/53 (73) 96 12/27/19 06:13 18 109/47 Mechanical Ventilator 40 12/27/19 06:00 70 18 109/47 (67) 97 12/27/19 05:31 74 115/51 12/27/19 05:13 18 106/57 Mechanical Ventilator 40 12/27/19 05:00 77 18 106/57 (73) 96 12/27/19 04:13 18 100/48 Mechanical Ventilator 40 12/27/19 04:00 98.9 79 18 100/48 (65) 97 12/27/19 04:00 40 12/27/19 04:00 Mechanical Ventilator 12/27/19 03:45 80 18 108/53 (71) 97 12/27/19 03:30 85 18 106/52 (70) 97 12/27/19 03:30 83 12/27/19 03:27 86 18 106/52 100 12/27/19 03:13 18 118/51 Mechanical Ventilator 40 12/27/19 03:08 109 19 40 12/27/19 03:00 107 15 118/51 (73) 96 12/27/19 02:58 18 109/56 Mechanical Ventilator 40 12/27/19 02:57 104 18 109/56 98 12/27/19 02:00 18 127/53 Mechanical Ventilator 40 12/27/19 02:00 69 18 127/53 (77) 97 12/27/19 01:00 61 18 101/47 (65) 97 12/27/19 01:00 20 101/47 Mechanical Ventilator 40 12/27/19 00:30 75 18 108/51 (70) 97 12/27/19 00:00 99.4 90 18 109/51 (70) 97 12/27/19 00:00 40 12/27/19 00:00 19 109/51 Mechanical Ventilator 40 12/27/19 00:00 Mechanical Ventilator 12/26/19 23:59 98 103/57 12/26/19 23:58 91 12/26/19 23:30 100 18 87/47 (60) 96 12/26/19 23:00 18 108/45 Mechanical Ventilator 40 12/26/19 23:00 104 18 108/45 (66) 100 12/26/19 22:57 107 18 40 12/26/19 22:30 118 18 129/44 (72) 95 12/26/19 22:00 114 18 125/45 (71) 95 12/26/19 22:00 16 125/45 Mechanical Ventilator 40 12/26/19 21:30 89 18 115/49 (71) 97 12/26/19 21:21 101 18 102/47 (65) 96 12/26/19 21:15 65 18 111/50 97 12/26/19 21:00 18 107/26 Mechanical Ventilator 40 12/26/19 21:00 114 18 107/26 (53) 93 12/26/19 20:46 65 111/50 12/26/19 20:45 22 109/55 Mechanical Ventilator 40 12/26/19 20:45 78 18 111/55 97 12/26/19 20:45 80 18 109/50 (69) 97 12/26/19 20:30 80 18 111/55 (73) 98 12/26/19 20:15 75 18 100/60 (73) 97 12/26/19 20:00 99.4 81 18 113/55 (74) 97 12/26/19 20:00 40 12/26/19 20:00 Mechanical Ventilator 12/26/19 19:45 79 18 97/50 (66) 97 12/26/19 19:33 20 94/52 Mechanical Ventilator 40 12/26/19 19:32 87 12/26/19 19:30 84 18 94/52 (66) 97 12/26/19 19:07 96 18 40 12/26/19 19:00 96 18 103/39 (60) 97 12/26/19 18:55 105 18 103/39 96 12/26/19 18:33 18 103/42 Mechanical Ventilator 40 12/26/19 18:15 160 20 146/50 92 12/26/19 18:15 137 146/50 12/26/19 18:00 160 20 146/50 (82) 92 12/26/19 17:33 19 135/60 Mechanical Ventilator 40 12/26/19 17:00 86 18 116/53 (74) 99 12/26/19 16:33 18 102/45 Mechanical Ventilator 40 12/26/19 16:00 40 12/26/19 16:00 Mechanical Ventilator 12/26/19 16:00 99.9 91 18 111/57 (75) 97 12/26/19 16:00 108 12/26/19 15:33 18 138/60 Mechanical Ventilator 40 12/26/19 15:00 109 18 138/60 (86) 95 12/26/19 15:00 101 18 40 12/26/19 14:45 18 96/46 Mechanical Ventilator 40 12/26/19 14:33 18 146/68 Mechanical Ventilator 40 12/26/19 14:00 91 18 96/46 (63) 96 12/26/19 13:33 18 100/75 Mechanical Ventilator 40 12/26/19 13:02 82 100/75 12/26/19 13:00 112 18 100/75 (83) 96 12/26/19 12:33 18 109/59 Mechanical Ventilator 40 12/26/19 12:00 Mechanical Ventilator 12/26/19 12:00 70 12/26/19 12:00 99.9 79 18 109/59 (76) 100 12/26/19 12:00 40 12/26/19 11:33 18 110/64 Mechanical Ventilator 40 12/26/19 11:00 73 18 110/64 (79) 100 I&O Intake and Output 12/26/19 12/27/19 19:00 07:00 Intake Total 3111.48347 ml 1718 ml Output Total 1080 ml 2085 ml Balance 2031.68542 ml -367 ml Free Water 80 ml 140 ml IV Total 2561.40275 ml 1098 ml Tube Feeding 450 ml 480 ml Other 20 ml Output Urine Total 1080 ml 2085 ml # Bowel Movements 1 Dressing: saturated Cardiovascular: RSR Respiratory: decreased breath sounds Abdomen: soft, non-tender, present bowel sounds Extremities: edema, cyanosis, no tenderness Laboratory Tests Test 12/26/19 21:29 12/27/19 04:00 12/27/19 08:12 Arterial Blood pH 7.352 (7.350-7.450) 7.402 (7.350-7.450) Arterial Blood Partial Pressure CO2 51.6 mmHg (35.0-45.0) H 51.9 mmHg (35.0-45.0) H Arterial Blood Partial Pressure O2 104.7 mmHg (75.0-100.0) H 79.7 mmHg (75.0-100.0) Arterial Blood HCO3 28.0 mmol/L (22.0-26.0) H 31.6 mmol/L (22.0-26.0) H Arterial Blood Oxygen Saturation 96.2 % (95-100) 93.5 % (95-100) L Arterial Blood Base Excess 2 (-2-2) 6.1 (-2-2) H Eugene Test Positive Positive White Blood Count 7.1 K/UL (4.8-10.8) Red Blood Count 2.79 M/UL (4.20-5.40) L Hemoglobin 7.8 G/DL (12.0-16.0) L Hematocrit 24.1 % (37.0-47.0) L Mean Corpuscular Volume 86 FL (80-99) Mean Corpuscular Hemoglobin 27.9 PG (27.0-31.0) Mean Corpuscular Hemoglobin Concent 32.4 G/DL (32.0-36.0) Red Cell Distribution Width 15.6 % (11.6-14.8) H Platelet Count 116 K/UL (150-450) L Mean Platelet Volume 7.5 FL (6.5-10.1) Neutrophils (%) (Auto) % (45.0-75.0) Lymphocytes (%) (Auto) % (20.0-45.0) Monocytes (%) (Auto) % (1.0-10.0) Eosinophils (%) (Auto) % (0.0-3.0) Basophils (%) (Auto) % (0.0-2.0) Sodium Level 144 MMOL/L (136-145) Potassium Level 3.6 MMOL/L (3.5-5.1) Chloride Level 106 MMOL/L (98-107) Carbon Dioxide Level 28 MMOL/L (21-32) Anion Gap 10 mmol/L (5-15) Blood Urea Nitrogen 65 mg/dL (7-18) H Creatinine 1.8 MG/DL (0.55-1.30) H Estimat Glomerular Filtration Rate 28.0 mL/min (>60) Glucose Level 109 MG/DL (74-106) H Calcium Level 7.9 MG/DL (8.5-10.1) L Total Bilirubin 0.8 MG/DL (0.2-1.0) Direct Bilirubin 0.4 MG/DL (0.0-0.3) H Aspartate Amino Transf (AST/SGOT) 17 U/L (15-37) Alanine Aminotransferase (ALT/SGPT) 17 U/L (12-78) Alkaline Phosphatase 69 U/L (46-116) Total Protein 6.5 G/DL (6.4-8.2) Albumin 1.7 G/DL (3.4-5.0) L Globulin 4.8 g/dL Albumin/Globulin Ratio 0.4 (1.0-2.7) L Plan Problems: (1) Urinary tract infection (2) CHF exacerbation (3) History of schizophrenia (4) Atrial fibrillation with RVR (5) Schizophrenia (6) GERD (gastroesophageal reflux disease) (7) Smoker (8) Atrial fibrillation with rapid ventricular response (9) Lymphadema (10) COPD (chronic obstructive pulmonary disease) (11) CKD (chronic kidney disease) stage 3, GFR 30-59 ml/min (12) NATALIE (acute kidney injury) (13) Dehydration (14) Dysphagia (15) UTI (urinary tract infection) (16) UGI bleed (17) ESBL (extended spectrum beta-lactamase) producing bacteria infection (18) Constipation (19) Lactic acidosis (20) Tinea cruris (21) Onychomycosis (22) Emesis (23) Essential hypertension (24) Anemia (25) Cough (26) Depression (27) Depression (28) Edema (29) Rash (30) Opiate dependence (31) Opiate dependence (32) Opiate dependence (33) Opiate dependence (34) Pyelonephritis (35) Sepsis (36) UTI (urinary tract infection) (37) Nausea and vomiting (38) Abdominal pain Assessment & Plan: [age]-year-old female obese white abdominal pain deep tissue injury identified limited mobility on HD. KUB noted tube in place continue meds feeds Does not seem obstructed We will monitor FINDINGS: Lower thorax: Obscuration of the left costophrenic angle suggestive of pleural effusion. Intraperitoneal space: No free air. Gastrointestinal tract: Unremarkable. No dilation. Bones/joints: Unremarkable. Tubes, lines and devices: The nasogastric tube has the tip at the mid inferior aspect of the gastric body. Other findings: Nonspecific gas pattern. Single frontal view of the abdomen demonstrates tip of the enteric tube and distal side-port projecting over the stomach. Gas is identified within the nondistended large bowel. There is a paucity of small bowel gas seen. Partially visualized left pleural effusion. No other significant interval change. (39) Chest pain (40) Chest pain (41) Nausea (42) Obesity (43) Chronic ulcer of leg (44) Chronic ulcer of leg (45) Chronic ulcer of leg (46) ACS (acute coronary syndrome) (47) Acute chest pain (48) Encounter for dressing change or suture removal (49) Left leg cellulitis (50) Acute encephalopathy (51) Encounter for wound re-check (52) Intractable nausea and vomiting (53) Infection due to ESBL-producing Escherichia coli (54) Chronic venous stasis (55) Change of dressing (56) Change of dressing (57) Change of dressing (58) Change of dressing (59) Change of dressing (60) Change of dressing (61) Change of dressing (62) Change of dressing (63) ESBL urine (64) Lymphadema (65) Lymphedema (66) Lymphedema (67) Lymphedema (68) Lymphedema (69) Lymphedema (70) Lymphedema (71) Lymphedema (72) Lymphedema (73) Open wound of foot (74) Open wound of foot (75) cellulitis (76) chronic lymphedema (77) chronic lymphedema (78) chronic lymphedema (79) hypertension uncontrolled (80) hypertension uncontrolled (81) Intertrigo (82) Sciatica (83) Cellulitis (84) Schizophrenia (85) Chronic bronchitis (86) HTN (hypertension) (87) Venous stasis ulcers (88) Medication refill (89) Chest pain, atypical (90) BMI 45.0-49.9, adult (91) Lymphedema of both lower extremities (92) hypertension uncontrolled (93) hypertension uncontrolled (94) hypertension uncontrolled (95) tenia corpus (96) Deep tissue injury Assessment & Plan: Morbidly obese pt whom presented on admission with Pressure injuries, Edemae bilat lower extremities eschar to dorsal aspects of metatarsals. Pt is very demanding of staff and can be resistive to repositioning. DTPI noted to L Sacrum(L)5.5cm x (W)2.5cm. Base of Pressure Injury is Maroon and indurated with surrounding non-blanchable erythema DTPI R Sacrum(L)5.5cm x (W)2.3cm. Base of Pressure Injury is maroon with purpuric center that is fluctuant. Pt complained of tenderness when minimally palpated. Bilat lower extremities are edematous . Dry eschar noted to nail matrix and tip of L 1st metatarsal, Dorsal L 2nd metatarsal, R 2nd and R 4th metatarsals. Both heels are boggy with non-Blanchable erythema. blisters forming on Right lower extremity anterior tibia. not infected cellulitis / edema on b/l le stable cont abx Tx.Plan: Apply Moisture Barrier Paste to Sacrum R and L gluteal cheeks. Cover with Optifoam drsgs. Change every 3 days and prn. Apply Betadine to dry eschar metatarsals both feet Daily. Apply Cavilon Skin Barrier to both heels. Cover each heel with Optifoam drsgs. Change every 7days and prn. Reposition at least every 2hours or as tolerated. Off-load heels with pillow. right leg hematoma stable critically ill and edema on right leg has compromised dermis over the hematoma. will likely need debridement once improved (97) COVID-19 Assessment & Plan: ++ on vent weaning abx as per ID (98) Respiratory failure (99) Pneumonia Juan Manuel Buckner Dec 27, 2019 10:50
--- NOTE | 2019-12-27 11:45 | NUR ---
NURSE NOTES: Dr. Victoria updated patient is tolerating tube feeding at 40ML/hr. patient is having soft brown bowel movements. no orders given at this time.
--- NOTE | 2019-12-27 12:39 | General Progress Note ---
Subjective ROS Limited/Unobtainable: Yes Allergies: Coded Allergies: ERYTHROMYCIN BASE (Verified Allergy, Severe, 12/12/19) HALOPERIDOL (Verified Allergy, Unknown, 12/12/19) VANCOMYCIN (Unverified Adverse Reaction, Intermediate, Shortness of Breath, 12/12/19) Objective Last 24 Hour Vital Signs Date Time Temp Pulse Resp B/P (MAP) Pulse Ox O2 Delivery O2 Flow Rate FiO2 12/27/19 11:30 75 18 109/53 (71) 99 12/27/19 11:13 18 108/53 Mechanical Ventilator 40 12/27/19 11:00 74 18 108/53 (71) 99 12/27/19 10:54 73 18 40 12/27/19 10:30 77 18 107/56 (73) 99 12/27/19 10:29 76 18 110/49 100 12/27/19 10:13 19 110/49 Mechanical Ventilator 40 12/27/19 10:00 106 20 97/56 (70) 91 12/27/19 09:40 114 18 119/60 94 12/27/19 09:40 114 119/60 12/27/19 09:13 20 113/41 Mechanical Ventilator 40 12/27/19 09:00 112 18 113/41 (65) 92 12/27/19 08:13 18 118/57 Mechanical Ventilator 40 12/27/19 08:00 100.1 99 18 118/57 (77) 97 12/27/19 08:00 40 12/27/19 08:00 Mechanical Ventilator 12/27/19 07:29 85 18 40 12/27/19 07:13 18 115/53 Mechanical Ventilator 40 12/27/19 07:00 63 18 115/53 (73) 96 12/27/19 06:13 18 109/47 Mechanical Ventilator 40 12/27/19 06:00 70 18 109/47 (67) 97 12/27/19 05:31 74 115/51 12/27/19 05:13 18 106/57 Mechanical Ventilator 40 12/27/19 05:00 77 18 106/57 (73) 96 12/27/19 04:13 18 100/48 Mechanical Ventilator 40 12/27/19 04:00 98.9 79 18 100/48 (65) 97 12/27/19 04:00 40 12/27/19 04:00 Mechanical Ventilator 12/27/19 03:45 80 18 108/53 (71) 97 12/27/19 03:30 85 18 106/52 (70) 97 12/27/19 03:30 83 12/27/19 03:27 86 18 106/52 100 12/27/19 03:13 18 118/51 Mechanical Ventilator 40 12/27/19 03:08 109 19 40 12/27/19 03:00 107 15 118/51 (73) 96 12/27/19 02:58 18 109/56 Mechanical Ventilator 40 12/27/19 02:57 104 18 109/56 98 12/27/19 02:00 18 127/53 Mechanical Ventilator 40 12/27/19 02:00 69 18 127/53 (77) 97 12/27/19 01:00 61 18 101/47 (65) 97 12/27/19 01:00 20 101/47 Mechanical Ventilator 40 12/27/19 00:30 75 18 108/51 (70) 97 12/27/19 00:00 99.4 90 18 109/51 (70) 97 12/27/19 00:00 40 12/27/19 00:00 19 109/51 Mechanical Ventilator 40 12/27/19 00:00 Mechanical Ventilator 12/26/19 23:59 98 103/57 12/26/19 23:58 91 12/26/19 23:30 100 18 87/47 (60) 96 12/26/19 23:00 18 108/45 Mechanical Ventilator 40 12/26/19 23:00 104 18 108/45 (66) 100 12/26/19 22:57 107 18 40 12/26/19 22:30 118 18 129/44 (72) 95 12/26/19 22:00 114 18 125/45 (71) 95 12/26/19 22:00 16 125/45 Mechanical Ventilator 40 12/26/19 21:30 89 18 115/49 (71) 97 12/26/19 21:21 101 18 102/47 (65) 96 12/26/19 21:15 65 18 111/50 97 12/26/19 21:00 18 107/26 Mechanical Ventilator 40 12/26/19 21:00 114 18 107/26 (53) 93 12/26/19 20:46 65 111/50 12/26/19 20:45 22 109/55 Mechanical Ventilator 40 12/26/19 20:45 78 18 111/55 97 12/26/19 20:45 80 18 109/50 (69) 97 12/26/19 20:30 80 18 111/55 (73) 98 12/26/19 20:15 75 18 100/60 (73) 97 12/26/19 20:00 99.4 81 18 113/55 (74) 97 12/26/19 20:00 40 12/26/19 20:00 Mechanical Ventilator 12/26/19 19:45 79 18 97/50 (66) 97 12/26/19 19:33 20 94/52 Mechanical Ventilator 40 12/26/19 19:32 87 12/26/19 19:30 84 18 94/52 (66) 97 12/26/19 19:07 96 18 40 12/26/19 19:00 96 18 103/39 (60) 97 12/26/19 18:55 105 18 103/39 96 12/26/19 18:33 18 103/42 Mechanical Ventilator 40 12/26/19 18:15 160 20 146/50 92 12/26/19 18:15 137 146/50 12/26/19 18:00 160 20 146/50 (82) 92 12/26/19 17:33 19 135/60 Mechanical Ventilator 40 12/26/19 17:00 86 18 116/53 (74) 99 12/26/19 16:33 18 102/45 Mechanical Ventilator 40 12/26/19 16:00 40 12/26/19 16:00 Mechanical Ventilator 12/26/19 16:00 99.9 91 18 111/57 (75) 97 12/26/19 16:00 108 12/26/19 15:33 18 138/60 Mechanical Ventilator 40 12/26/19 15:00 109 18 138/60 (86) 95 12/26/19 15:00 101 18 40 12/26/19 14:45 18 96/46 Mechanical Ventilator 40 12/26/19 14:33 18 146/68 Mechanical Ventilator 40 12/26/19 14:00 91 18 96/46 (63) 96 12/26/19 13:33 18 100/75 Mechanical Ventilator 40 12/26/19 13:02 82 100/75 12/26/19 13:00 112 18 100/75 (83) 96 Intake and Output 12/26/19 12/27/19 19:00 07:00 Intake Total 3111.95584 ml 1718 ml Output Total 1080 ml 2085 ml Balance 2031.77080 ml -367 ml Free Water 80 ml 140 ml IV Total 2561.88617 ml 1098 ml Tube Feeding 450 ml 480 ml Other 20 ml Output Urine Total 1080 ml 2085 ml # Bowel Movements 1 Laboratory Tests 12/26/19 21:29: Arterial Blood pH 7.352, Arterial Blood Partial Pressure CO2 51.6H, Arterial Blood Partial Pressure O2 104.7H, Arterial Blood HCO3 28.0H, Arterial Blood Oxygen Saturation 96.2, Arterial Blood Base Excess 2, Eugene Test Positive 12/27/19 04:00: White Blood Count 7.1, Red Blood Count 2.79L, Hemoglobin 7.8L, Hematocrit 24.1L, Mean Corpuscular Volume 86, Mean Corpuscular Hemoglobin 27.9, Mean Corpuscular Hemoglobin Concent 32.4, Red Cell Distribution Width 15.6H, Platelet Count 116L, Mean Platelet Volume 7.5, Neutrophils (%) (Auto) , Lymphocytes (%) (Auto) , Monocytes (%) (Auto) , Eosinophils (%) (Auto) , Basophils (%) (Auto) , Sodium Level 144, Potassium Level 3.6, Chloride Level 106, Carbon Dioxide Level 28, Anion Gap 10, Blood Urea Nitrogen 65H, Creatinine 1.8H, Estimat Glomerular Filtration Rate 28.0, Glucose Level 109H, Calcium Level 7.9L, Total Bilirubin 0.8, Direct Bilirubin 0.4H, Aspartate Amino Transf (AST/SGOT) 17, Alanine Aminotransferase (ALT/SGPT) 17, Alkaline Phosphatase 69, Total Protein 6.5, Albumin 1.7L, Globulin 4.8, Albumin/Globulin Ratio 0.4L 12/27/19 08:12: Arterial Blood pH 7.402, Arterial Blood Partial Pressure CO2 51.9H, Arterial Blood Partial Pressure O2 79.7, Arterial Blood HCO3 31.6H, Arterial Blood Oxygen Saturation 93.5L, Arterial Blood Base Excess 6.1H, Eugene Test Positive Height (Feet): 5 Height (Inches): 6.00 Weight (Pounds): 298 General Appearance: other - sedated, vent Cardiovascular: regularly irregular Respiratory/Chest: rhonchi - bilaterally Abdomen: non tender Edema: moderate edema Neurologic: unresponsive Assessment/Plan Problem List: (1) Schizophrenia ICD Codes: F20.9 - Schizophrenia, unspecified SNOMED: 57919106 (2) GERD (gastroesophageal reflux disease) ICD Codes: K21.9 - Gastro-esophageal reflux disease without esophagitis SNOMED: 801251875 (3) Lymphadema (4) Smoker ICD Codes: F17.200 - Nicotine dependence, unspecified, uncomplicated SNOMED: 96553110 (5) Atrial fibrillation with rapid ventricular response ICD Codes: I48.91 - Unspecified atrial fibrillation SNOMED: 092369516010489 (6) CKD (chronic kidney disease) stage 3, GFR 30-59 ml/min ICD Codes: N18.3 - Chronic kidney disease, stage 3 (moderate) SNOMED: 877900570 (7) NATALIE (acute kidney injury) ICD Codes: N17.9 - Acute kidney failure, unspecified SNOMED: 9151936, 07248083 (8) COPD (chronic obstructive pulmonary disease) ICD Codes: J44.9 - Chronic obstructive pulmonary disease, unspecified SNOMED: 65108190 (9) UGI bleed ICD Codes: K92.2 - Gastrointestinal hemorrhage, unspecified SNOMED: 79383001 (10) Dysphagia ICD Codes: R13.10 - Dysphagia, unspecified SNOMED: 35270340, 821390747 (11) UTI (urinary tract infection) ICD Codes: N39.0 - Urinary tract infection, site not specified SNOMED: 19827449 (12) ESBL (extended spectrum beta-lactamase) producing bacteria infection ICD Codes: A49.9 - Bacterial infection, unspecified; Z16.12 - Extended spectrum beta lactamase (ESBL) resistance SNOMED: 718414337 (13) Dehydration ICD Codes: E86.0 - Dehydration SNOMED: 72065475 (14) CHF exacerbation ICD Codes: I50.9 - Heart failure, unspecified SNOMED: 996380927, 91145858729349 (15) Acute respiratory failure ICD Codes: J96.00 - Acute respiratory failure, unspecified whether with hypoxia or hypercapnia SNOMED: 10653293 (16) COVID-19 ICD Codes: U07.1 - COVID-19 SNOMED: 683332496 (17) Pneumonia ICD Codes: J18.9 - Pneumonia, unspecified organism SNOMED: 272902272 Qualifiers: (18) Hematoma of lower leg ICD Codes: S80.10XA - Contusion of unspecified lower leg, initial encounter SNOMED: 226766939 (19) CKD (chronic kidney disease) stage 3, GFR 30-59 ml/min ICD Codes: N18.3 - Chronic kidney disease, stage 3 (moderate) SNOMED: 799546968 Status: stable Assessment/Plan: resp distress, icu, bipap now intubated, worse natalie,,now stable, I/O, ,+hematoma RLE stop eliquis ancd asa, lovenox now iv protonix, rx esbl and + vre uti,g+ cocci linezolid , remains high risk, psychotic and hallucinating d/w psych, ID, cardiology, chf wourse and increase lasix ,covid neg prior now +, grave prognosiss, Hb fell to 6.2, needs transfusion, unable to consent , done , lack of iv access and picc needed, unable to sign,done, likely will be unable to wean for a long time, icu time 40 min Benjamin Dumont MD Dec 27, 2019 12:39
--- NOTE | 2019-12-27 13:25 | NUR ---
NURSE NOTES: Dr. Beasley updated of patient WBC increased to 8.3 after insertion of the picc line, also made aware the patient is not a candidate for weaning as this time, at least until the full course of treatment for covid-19 is completed. no verbal orders given at this time.
[2019-12-27] MEDS: Micafungin 100 MG in NS 110 ML IVPB SCH (13:30)
[2019-12-27] MEDS: REMDESIVIR IV SCH ×2 (13:31)
[2019-12-27] MEDS: [UNRECOGNIZED DRUG - OTHER] IV SCH ×2 (13:31)
--- NOTE | 2019-12-27 13:51 | Infectious Diseases Prog Note ---
Assessment/Plan Assessment/Plan ASSESSMENT AND PLAN: 1. hx esbl e.coli uti/pyelonephritis, sepsis, leukocytosis, fevers mrsa and vre colonization, NATALIE, respiratory distress/failure Fungemia - + yeast in blood mrsa pna/acinetobacter pna VRE uti covid-19 infection - zyvox, meropenem, polymyxin, micafungin - day # 5 abx combination - remdesivir and dexamethasone - day # 4 - monitor labs and chest x-ray, f/u on cultures - icu care, supportive care 2. Chronic kidney failure, acute renal failure. 3. COPD. 4. Pulmonary followup. 5. Renal followup. 6. History of falls. 7. Atrial fibrillation. Cardiology followup. 8. Obesity. 9. Gait disorder. 10. Schizophrenia. 11. Homeless. 12. Allergic to erythromycin, haloperidol, and vancomycin. 13. Social history is negative. 14. Family history is noncontributory. 15. MAR is noted. 16. Case discussed with RN. 17. Continue treatment per Dr. Dumont and consultants. Subjective Constitutional: Reports: fatigue, other - on vent, no pressors ; Denies: fever HEENT: Reports: congestion Respiratory: Reports: shortness of breath Cardiovascular: Denies: chest pain Gastrointestinal/Abdominal: Denies: nausea, vomiting, diarrhea Genitourinary: Reports: other Neurologic: Denies: headache Psychiatric: Denies: depression Skin: Denies: rash Hematologic: Denies: bleeding Musculoskeletal: Reports: other - NA Allergies: Coded Allergies: ERYTHROMYCIN BASE (Verified Allergy, Severe, 12/12/19) HALOPERIDOL (Verified Allergy, Unknown, 12/12/19) VANCOMYCIN (Unverified Adverse Reaction, Intermediate, Shortness of Breath, 12/12/19) Objective Last 24 Hour Vital Signs Date Time Temp Pulse Resp B/P (MAP) Pulse Ox O2 Delivery O2 Flow Rate FiO2 12/27/19 13:21 114 114/59 12/27/19 13:07 77 12/27/19 12:00 75 18 109/53 (71) 99 12/27/19 12:00 86 12/27/19 11:30 75 18 109/53 (71) 99 12/27/19 11:13 18 108/53 Mechanical Ventilator 40 12/27/19 11:00 74 18 108/53 (71) 99 12/27/19 10:54 73 18 40 12/27/19 10:30 77 18 107/56 (73) 99 12/27/19 10:29 76 18 110/49 100 12/27/19 10:13 19 110/49 Mechanical Ventilator 40 12/27/19 10:00 106 20 97/56 (70) 91 12/27/19 09:40 114 18 119/60 94 12/27/19 09:40 114 119/60 12/27/19 09:13 20 113/41 Mechanical Ventilator 40 12/27/19 09:00 112 18 113/41 (65) 92 12/27/19 08:13 18 118/57 Mechanical Ventilator 40 12/27/19 08:00 100.1 99 18 118/57 (77) 97 12/27/19 08:00 40 12/27/19 08:00 77 12/27/19 08:00 Mechanical Ventilator 12/27/19 07:29 85 18 40 12/27/19 07:13 18 115/53 Mechanical Ventilator 40 12/27/19 07:00 63 18 115/53 (73) 96 12/27/19 06:13 18 109/47 Mechanical Ventilator 40 12/27/19 06:00 70 18 109/47 (67) 97 12/27/19 05:31 74 115/51 12/27/19 05:13 18 106/57 Mechanical Ventilator 40 12/27/19 05:00 77 18 106/57 (73) 96 12/27/19 04:13 18 100/48 Mechanical Ventilator 40 12/27/19 04:00 98.9 79 18 100/48 (65) 97 12/27/19 04:00 40 12/27/19 04:00 Mechanical Ventilator 12/27/19 03:45 80 18 108/53 (71) 97 12/27/19 03:30 85 18 106/52 (70) 97 12/27/19 03:30 83 12/27/19 03:27 86 18 106/52 100 12/27/19 03:13 18 118/51 Mechanical Ventilator 40 12/27/19 03:08 109 19 40 12/27/19 03:00 107 15 118/51 (73) 96 12/27/19 02:58 18 109/56 Mechanical Ventilator 40 12/27/19 02:57 104 18 109/56 98 12/27/19 02:00 18 127/53 Mechanical Ventilator 40 12/27/19 02:00 69 18 127/53 (77) 97 12/27/19 01:00 61 18 101/47 (65) 97 12/27/19 01:00 20 101/47 Mechanical Ventilator 40 12/27/19 00:30 75 18 108/51 (70) 97 12/27/19 00:00 99.4 90 18 109/51 (70) 97 12/27/19 00:00 40 12/27/19 00:00 19 109/51 Mechanical Ventilator 40 12/27/19 00:00 Mechanical Ventilator 12/26/19 23:59 98 103/57 12/26/19 23:58 91 12/26/19 23:30 100 18 87/47 (60) 96 12/26/19 23:00 18 108/45 Mechanical Ventilator 40 12/26/19 23:00 104 18 108/45 (66) 100 12/26/19 22:57 107 18 40 12/26/19 22:30 118 18 129/44 (72) 95 12/26/19 22:00 114 18 125/45 (71) 95 12/26/19 22:00 16 125/45 Mechanical Ventilator 40 12/26/19 21:30 89 18 115/49 (71) 97 12/26/19 21:21 101 18 102/47 (65) 96 12/26/19 21:15 65 18 111/50 97 12/26/19 21:00 18 107/26 Mechanical Ventilator 40 12/26/19 21:00 114 18 107/26 (53) 93 12/26/19 20:46 65 111/50 12/26/19 20:45 22 109/55 Mechanical Ventilator 40 12/26/19 20:45 78 18 111/55 97 12/26/19 20:45 80 18 109/50 (69) 97 12/26/19 20:30 80 18 111/55 (73) 98 12/26/19 20:15 75 18 100/60 (73) 97 12/26/19 20:00 99.4 81 18 113/55 (74) 97 12/26/19 20:00 40 12/26/19 20:00 Mechanical Ventilator 12/26/19 19:45 79 18 97/50 (66) 97 12/26/19 19:33 20 94/52 Mechanical Ventilator 40 12/26/19 19:32 87 12/26/19 19:30 84 18 94/52 (66) 97 12/26/19 19:07 96 18 40 12/26/19 19:00 96 18 103/39 (60) 97 12/26/19 18:55 105 18 103/39 96 12/26/19 18:33 18 103/42 Mechanical Ventilator 40 12/26/19 18:15 160 20 146/50 92 12/26/19 18:15 137 146/50 12/26/19 18:00 160 20 146/50 (82) 92 12/26/19 17:33 19 135/60 Mechanical Ventilator 40 12/26/19 17:00 86 18 116/53 (74) 99 12/26/19 16:33 18 102/45 Mechanical Ventilator 40 12/26/19 16:00 40 12/26/19 16:00 Mechanical Ventilator 12/26/19 16:00 99.9 91 18 111/57 (75) 97 12/26/19 16:00 108 12/26/19 15:33 18 138/60 Mechanical Ventilator 40 12/26/19 15:00 109 18 138/60 (86) 95 12/26/19 15:00 101 18 40 12/26/19 14:45 18 96/46 Mechanical Ventilator 40 12/26/19 14:33 18 146/68 Mechanical Ventilator 40 12/26/19 14:00 91 18 96/46 (63) 96 Height (Feet): 5 Height (Inches): 6.00 Weight (Pounds): 298 General Appearance: no acute distress HEENT: normocephalic, atraumatic, anicteric, mucous membranes moist, EOMI, pharynx normal, supple, no JVD Respiratory/Chest: crackles/rales, rhonchi - bilaterally Cardiovascular: normal rate, regular rhythm, no gallop/murmur Abdomen: normal bowel sounds, soft, non tender, no organomegaly, non distended Genitourinary: other - + trivedi Extremities: no cyanosis Skin: no rash 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 There is bilateral interstitial and airspace disease is again demonstrated, probably unchanged allowing for differences in degree of inspiration. Impression: Unchanged, over one day, findings as above. Chest x-ray - 12/21/19 - Procedure: XRAY Chest 1v Indication: Shortness of breath Technique: One view of the chest Comparison: 12/19/2019 Findings: The heart is enlarged. Bilateral extensive infiltrates are again demonstrated, stable to slightly worse allowing for differences in exposure technique. There is suggestion of increasing pleural fluid on the left. Nasogastric tube is again demonstrated. Impression: Stable to worsened bilateral extensive infiltrates, since exam of 2 days prior Increasing left pleural effusion Chest x-ray - 12/23/19 - IMPRESSION: 1. No significant interval change from the prior chest x-ray. 2. Persistent moderate left pleural effusion and mild right pleural effusion. 3. Pulmonary vascular congestion. 4. Persistent opacity in the left lung base, which may represent atelectasis versus pneumonia. Chest x-ray - 12/25/19 - Procedure: XRAY Chest 1v Procedure: XRAY Chest 1v Reason for study: Reason For Exam: SOB Comparison films: 12/24/2019. FINDINGS: The tracheal tube and NG tube remain in place. Vascular prominence and bilateral hazy alveolar densities are unchanged. Cardiomegaly and small effusions also unchanged. The bony thorax appear unremarkable. IMPRESSION: NO SIGNIFICANT CHANGE COMPARED TO PREVIOUS EXAM. 12/26/19 - Procedure: XRAY Chest 1v Procedure: XRAY Chest 1v Reason for study: Reason For Exam: SOB Comparison films: 12/25/2019. FINDINGS: Endotracheal tube and NG tube remain in place. Hazy bilateral alveolar densities are essentially unchanged given the difference in technique. Cardiomegaly and right effusion again noted. The bony thorax appear unremarkable. IMPRESSION: NO SIGNIFICANT CHANGE COMPARED TO PREVIOUS EXAM. Microbiology Date/Time Source Procedure Growth Status 12/25/19 15:45 Blood Blood Culture - Preliminary NO GROWTH AFTER 24 HOURS Resulted 12/23/19 23:50 Nasopharynx SARS-CoV-2 RdRp Gene Assay - Final Complete 12/17/19 20:45 Indwelling Cath Urine Culture - Final Enterococcus Faecium - Vre Complete 12/12/19 21:00 Rectum - Final NO CARBAPENEM-RESISTANT ENTEROBACTERI... Complete Microbiology Date/Time Source Procedure Growth Status 12/25/19 15:45 Blood Blood Culture - Preliminary NO GROWTH AFTER 24 HOURS Resulted 12/25/19 15:35 Blood Blood Culture - Preliminary NO GROWTH AFTER 24 HOURS Resulted Laboratory Tests Test 12/26/19 21:29 12/27/19 04:00 12/27/19 08:12 Arterial Blood pH 7.352 (7.350-7.450) 7.402 (7.350-7.450) Arterial Blood Partial Pressure CO2 51.6 mmHg (35.0-45.0) H 51.9 mmHg (35.0-45.0) H Arterial Blood Partial Pressure O2 104.7 mmHg (75.0-100.0) H 79.7 mmHg (75.0-100.0) Arterial Blood HCO3 28.0 mmol/L (22.0-26.0) H 31.6 mmol/L (22.0-26.0) H Arterial Blood Oxygen Saturation 96.2 % (95-100) 93.5 % (95-100) L Arterial Blood Base Excess 2 (-2-2) 6.1 (-2-2) H Eugene Test Positive Positive White Blood Count 7.1 K/UL (4.8-10.8) Red Blood Count 2.79 M/UL (4.20-5.40) L Hemoglobin 7.8 G/DL (12.0-16.0) L Hematocrit 24.1 % (37.0-47.0) L Mean Corpuscular Volume 86 FL (80-99) Mean Corpuscular Hemoglobin 27.9 PG (27.0-31.0) Mean Corpuscular Hemoglobin Concent 32.4 G/DL (32.0-36.0) Red Cell Distribution Width 15.6 % (11.6-14.8) H Platelet Count 116 K/UL (150-450) L Mean Platelet Volume 7.5 FL (6.5-10.1) Neutrophils (%) (Auto) % (45.0-75.0) Lymphocytes (%) (Auto) % (20.0-45.0) Monocytes (%) (Auto) % (1.0-10.0) Eosinophils (%) (Auto) % (0.0-3.0) Basophils (%) (Auto) % (0.0-2.0) Sodium Level 144 MMOL/L (136-145) Potassium Level 3.6 MMOL/L (3.5-5.1) Chloride Level 106 MMOL/L (98-107) Carbon Dioxide Level 28 MMOL/L (21-32) Anion Gap 10 mmol/L (5-15) Blood Urea Nitrogen 65 mg/dL (7-18) H Creatinine 1.8 MG/DL (0.55-1.30) H Estimat Glomerular Filtration Rate 28.0 mL/min (>60) Glucose Level 109 MG/DL (74-106) H Calcium Level 7.9 MG/DL (8.5-10.1) L Total Bilirubin 0.8 MG/DL (0.2-1.0) Direct Bilirubin 0.4 MG/DL (0.0-0.3) H Aspartate Amino Transf (AST/SGOT) 17 U/L (15-37) Alanine Aminotransferase (ALT/SGPT) 17 U/L (12-78) Alkaline Phosphatase 69 U/L (46-116) Total Protein 6.5 G/DL (6.4-8.2) Albumin 1.7 G/DL (3.4-5.0) L Globulin 4.8 g/dL Albumin/Globulin Ratio 0.4 (1.0-2.7) L Current Medications Medications (Trade) Dose Ordered Sig/Shiraz Route PRN Reason Start Time Stop Time Status Last Admin Dose Admin Acetaminophen (Tylenol) 650 mg Q4H PRN NG Temp >100.5 12/22/19 16:00 01/11/20 22:14 12/23/19 13:53 Acetaminophen (Tylenol) 650 mg Q4H PRN NG Mild Pain (Pain Scale 1-3) 12/22/19 16:00 01/11/20 22:14 12/25/19 20:06 Albuterol Sulfate (Proventil MDI) 2 puff Q4H PRN INH Shortness of Breath 12/24/19 10:30 03/23/20 10:29 Bacitracin (Bacitracin 15gm tube) 1 applic BID TOPIC 12/22/19 18:00 03/12/20 08:59 12/27/19 09:42 Chlorhexidine Gluconate (Jessie-Hex 2%) 1 applic DAILY@1999 TOPIC 12/24/19 20:00 03/23/20 19:59 12/26/19 20:46 Clotrimazole (Lotrimin) 1 applic TWICE A DAY TOPIC 12/22/19 18:00 03/12/20 08:59 12/27/19 09:42 Dexamethasone Sodium Phosphate (Decadron 10mg/ ml Inj) 6 mg DAILY IV 12/24/19 09:00 01/03/20 08:59 12/27/19 09:41 Dextrose (Dextrose 50%) 25 ml Q30M PRN IV Hypoglycemia 12/23/19 10:45 03/22/20 10:44 Dextrose (Dextrose 50%) 50 ml Q30M PRN IV Hypoglycemia 12/23/19 10:45 03/22/20 10:44 Diltiazem HCl (Cardizem Tab) 90 mg Q6HR NG 12/22/19 18:00 01/13/20 11:59 12/27/19 13:21 Docusate Sodium (Colace) 100 mg BID NG 12/25/19 09:00 01/24/20 08:59 12/27/19 09:40 Enoxaparin Sodium (Lovenox) 60 mg DAILY SUBQ 12/23/19 09:00 03/22/20 08:59 12/27/19 09:42 Famotidine (Pepcid I.v.) 20 mg Q12HR IVP 12/25/19 09:00 01/24/20 08:59 12/27/19 09:41 Fentanyl Citrate 250 ml @ 0 mls/hr Q24H IV 12/25/19 22:30 12/27/19 22:00 12/27/19 02:58 Furosemide (Lasix) 40 mg Q6HR IV 12/25/19 12:00 01/24/20 11:59 12/27/19 13:22 Insulin Aspart (NovoLOG) BEFORE MEALS AND HS SUBQ 12/23/19 11:30 03/22/20 11:29 12/27/19 13:27 Linezolid 300 ml @ 300 mls/hr Q12HR IVPB 12/25/19 21:00 12/29/19 20:59 12/27/19 09:39 Lorazepam (Ativan 2mg/ml 1ml) 2 mg Q2H PRN IV For Anxiety 12/24/19 13:30 12/31/19 13:29 12/27/19 09:40 Magnesium Hydroxide (Mom) 30 ml HSPRN PRN NG Constipation 12/22/19 15:15 01/21/20 15:14 Meropenem 500 mg/ Sodium Chloride 55 ml @ 110 mls/hr Q12H IVPB 12/26/19 16:00 12/31/19 15:59 12/27/19 02:56 Metoprolol Tartrate (Lopressor) 50 mg Q12HR NG 12/22/19 21:00 03/18/20 20:59 12/27/19 09:40 Micafungin Sodium 100 mg/Sodium Chloride 110 ml @ 110 mls/hr Q24H IVPB 12/27/19 09:00 01/01/20 08:59 12/27/19 13:30 Miscellaneous Medication (Remdesivir Fact Sheet) 1 ea ONCE PRN MISC Pt currently sedated 12/24/19 10:30 01/03/20 10:29 Nitroglycerin (Ntg) 0.4 mg Q5M PRN SL Prn Chest Pain 12/22/19 15:00 01/11/20 22:14 Ondansetron HCl (Zofran) 4 mg Q6H PRN IVP Nausea & Vomiting 12/22/19 15:15 01/11/20 15:14 Polyethylene Glycol (Miralax) 17 gm BEDTIME NG 12/22/19 21:00 01/18/20 20:59 12/26/19 20:46 Polymyxin B Sulfate 135698 units/Dextrose 550 ml @ 550 mls/hr EVERY 12 HOURS IV 12/23/19 13:00 12/30/19 12:59 12/27/19 09:39 Remdesivir 100 mg/ Sodium Chloride 250 ml @ 250 mls/hr Q24H IV 12/25/19 14:00 01/02/20 14:59 12/27/19 13:31 Risperidone (RisperDAL) 2 mg BEDTIME NG 12/22/19 21:00 02/04/20 20:59 12/26/19 20:46 Aleisha Coronel MD Dec 27, 2019 13:51
[2019-12-27] MEDS ORDERED: NS 275ml ONE (13:53)
--- NOTE | 2019-12-27 14:20 | Diagnostic Imaging Report ---
Indication: Shortness of breath Technique: Portable AP view the chest Comparison: 12/26/2019 Findings: Significantly limited exam due to underpenetration, possibly related to body habitus. Right size appears stable. Endotracheal and enteric tubes remain in place. Tip of the enteric tube is difficult to distinguish but appears to course below level of diaphragms. There is vascular congestion and bilateral airspace opacities. Probable layering right pleural effusion. No evidence of pneumothorax. Left arm PICC line has its tip in the region of the left subclavian vein. Osseous structures grossly stable. IMPRESSION: Significantly limited exam, likely in part related to underpenetration from patient body habitus. Bilateral infiltrates and layering right pleural effusion, not significantly changed compared to the prior exam. Left arm PICC line, endotracheal tube and enteric tube remain in place.
--- NOTE | 2019-12-27 14:45 | General Progress Note ---
Subjective ROS Limited/Unobtainable: No Allergies: Coded Allergies: ERYTHROMYCIN BASE (Verified Allergy, Severe, 12/12/19) HALOPERIDOL (Verified Allergy, Unknown, 12/12/19) VANCOMYCIN (Unverified Adverse Reaction, Intermediate, Shortness of Breath, 12/12/19) Objective Last 24 Hour Vital Signs Date Time Temp Pulse Resp B/P (MAP) Pulse Ox O2 Delivery O2 Flow Rate FiO2 12/27/19 14:00 51 18 107/47 (67) 99 12/27/19 13:21 114 114/59 12/27/19 13:07 77 12/27/19 13:00 81 18 123/63 (83) 99 12/27/19 12:01 99.9 75 18 109/53 (71) 99 12/27/19 12:00 40 12/27/19 12:00 75 18 109/53 (71) 99 12/27/19 12:00 Mechanical Ventilator 12/27/19 12:00 86 12/27/19 11:30 75 18 109/53 (71) 99 12/27/19 11:13 18 108/53 Mechanical Ventilator 40 12/27/19 11:00 74 18 108/53 (71) 99 12/27/19 10:54 73 18 40 12/27/19 10:30 77 18 107/56 (73) 99 12/27/19 10:29 76 18 110/49 100 12/27/19 10:13 19 110/49 Mechanical Ventilator 40 12/27/19 10:00 106 20 97/56 (70) 91 12/27/19 09:40 114 18 119/60 94 12/27/19 09:40 114 119/60 12/27/19 09:13 20 113/41 Mechanical Ventilator 40 12/27/19 09:00 112 18 113/41 (65) 92 12/27/19 08:13 18 118/57 Mechanical Ventilator 40 12/27/19 08:00 100.1 99 18 118/57 (77) 97 12/27/19 08:00 40 12/27/19 08:00 77 12/27/19 08:00 Mechanical Ventilator 12/27/19 07:29 85 18 40 12/27/19 07:13 18 115/53 Mechanical Ventilator 40 12/27/19 07:00 63 18 115/53 (73) 96 9/17/20 06:13 18 109/47 Mechanical Ventilator 40 12/27/19 06:00 70 18 109/47 (67) 97 12/27/19 05:31 74 115/51 12/27/19 05:13 18 106/57 Mechanical Ventilator 40 12/27/19 05:00 77 18 106/57 (73) 96 12/27/19 04:13 18 100/48 Mechanical Ventilator 40 12/27/19 04:00 98.9 79 18 100/48 (65) 97 12/27/19 04:00 40 12/27/19 04:00 Mechanical Ventilator 12/27/19 03:45 80 18 108/53 (71) 97 12/27/19 03:30 85 18 106/52 (70) 97 12/27/19 03:30 83 12/27/19 03:27 86 18 106/52 100 12/27/19 03:13 18 118/51 Mechanical Ventilator 40 12/27/19 03:08 109 19 40 12/27/19 03:00 107 15 118/51 (73) 96 12/27/19 02:58 18 109/56 Mechanical Ventilator 40 12/27/19 02:57 104 18 109/56 98 12/27/19 02:00 18 127/53 Mechanical Ventilator 40 12/27/19 02:00 69 18 127/53 (77) 97 12/27/19 01:00 61 18 101/47 (65) 97 12/27/19 01:00 20 101/47 Mechanical Ventilator 40 12/27/19 00:30 75 18 108/51 (70) 97 12/27/19 00:00 99.4 90 18 109/51 (70) 97 12/27/19 00:00 40 12/27/19 00:00 19 109/51 Mechanical Ventilator 40 12/27/19 00:00 Mechanical Ventilator 12/26/19 23:59 98 103/57 12/26/19 23:58 91 12/26/19 23:30 100 18 87/47 (60) 96 12/26/19 23:00 18 108/45 Mechanical Ventilator 40 12/26/19 23:00 104 18 108/45 (66) 100 12/26/19 22:57 107 18 40 12/26/19 22:30 118 18 129/44 (72) 95 12/26/19 22:00 114 18 125/45 (71) 95 12/26/19 22:00 16 125/45 Mechanical Ventilator 40 12/26/19 21:30 89 18 115/49 (71) 97 12/26/19 21:21 101 18 102/47 (65) 96 12/26/19 21:15 65 18 111/50 97 12/26/19 21:00 18 107/26 Mechanical Ventilator 40 12/26/19 21:00 114 18 107/26 (53) 93 12/26/19 20:46 65 111/50 12/26/19 20:45 22 109/55 Mechanical Ventilator 40 12/26/19 20:45 78 18 111/55 97 12/26/19 20:45 80 18 109/50 (69) 97 12/26/19 20:30 80 18 111/55 (73) 98 12/26/19 20:15 75 18 100/60 (73) 97 12/26/19 20:00 99.4 81 18 113/55 (74) 97 12/26/19 20:00 40 12/26/19 20:00 Mechanical Ventilator 12/26/19 19:45 79 18 97/50 (66) 97 12/26/19 19:33 20 94/52 Mechanical Ventilator 40 12/26/19 19:32 87 12/26/19 19:30 84 18 94/52 (66) 97 12/26/19 19:07 96 18 40 12/26/19 19:00 96 18 103/39 (60) 97 12/26/19 18:55 105 18 103/39 96 12/26/19 18:33 18 103/42 Mechanical Ventilator 40 12/26/19 18:15 160 20 146/50 92 12/26/19 18:15 137 146/50 12/26/19 18:00 160 20 146/50 (82) 92 12/26/19 17:33 19 135/60 Mechanical Ventilator 40 12/26/19 17:00 86 18 116/53 (74) 99 12/26/19 16:33 18 102/45 Mechanical Ventilator 40 12/26/19 16:00 40 12/26/19 16:00 Mechanical Ventilator 12/26/19 16:00 99.9 91 18 111/57 (75) 97 12/26/19 16:00 108 12/26/19 15:33 18 138/60 Mechanical Ventilator 40 12/26/19 15:00 109 18 138/60 (86) 95 12/26/19 15:00 101 18 40 12/26/19 14:45 18 96/46 Mechanical Ventilator 40 Intake and Output 12/26/19 12/27/19 19:00 07:00 Intake Total 3111.74778 ml 1718 ml Output Total 1080 ml 2085 ml Balance 2031.07781 ml -367 ml Free Water 80 ml 140 ml IV Total 2561.79884 ml 1098 ml Tube Feeding 450 ml 480 ml Other 20 ml Output Urine Total 1080 ml 2085 ml # Bowel Movements 1 Laboratory Tests 12/26/19 21:29: Arterial Blood pH 7.352, Arterial Blood Partial Pressure CO2 51.6H, Arterial Blood Partial Pressure O2 104.7H, Arterial Blood HCO3 28.0H, Arterial Blood Oxygen Saturation 96.2, Arterial Blood Base Excess 2, Eugene Test Positive 12/27/19 04:00: White Blood Count 7.1, Red Blood Count 2.79L, Hemoglobin 7.8L, Hematocrit 24.1L, Mean Corpuscular Volume 86, Mean Corpuscular Hemoglobin 27.9, Mean Corpuscular Hemoglobin Concent 32.4, Red Cell Distribution Width 15.6H, Platelet Count 116L, Mean Platelet Volume 7.5, Neutrophils (%) (Auto) , Lymphocytes (%) (Auto) , Monocytes (%) (Auto) , Eosinophils (%) (Auto) , Basophils (%) (Auto) , Sodium Level 144, Potassium Level 3.6, Chloride Level 106, Carbon Dioxide Level 28, Anion Gap 10, Blood Urea Nitrogen 65H, Creatinine 1.8H, Estimat Glomerular Filtration Rate 28.0, Glucose Level 109H, Calcium Level 7.9L, Total Bilirubin 0.8, Direct Bilirubin 0.4H, Aspartate Amino Transf (AST/SGOT) 17, Alanine Aminotransferase (ALT/SGPT) 17, Alkaline Phosphatase 69, Total Protein 6.5, Al bumin 1.7L, Globulin 4.8, Albumin/Globulin Ratio 0.4L 12/27/19 08:12: Arterial Blood pH 7.402, Arterial Blood Partial Pressure CO2 51.9H, Arterial Blood Partial Pressure O2 79.7, Arterial Blood HCO3 31.6H, Arterial Blood Oxygen Saturation 93.5L, Arterial Blood Base Excess 6.1H, Eugene Test Positive Height (Feet): 5 Height (Inches): 6.00 Weight (Pounds): 298 General Appearance: no apparent distress EENT: normal ENT inspection Neck: supple Cardiovascular: normal rate Respiratory/Chest: decreased breath sounds Abdomen: normal bowel sounds, non tender, soft Extremities: non-tender Assessment/Plan Problem List: (1) CKD (chronic kidney disease) stage 3, GFR 30-59 ml/min ICD Codes: N18.3 - Chronic kidney disease, stage 3 (moderate) SNOMED: 517954270 (2) COPD (chronic obstructive pulmonary disease) ICD Codes: J44.9 - Chronic obstructive pulmonary disease, unspecified SNOMED: 03518040 (3) Smoker ICD Codes: F17.200 - Nicotine dependence, unspecified, uncomplicated SNOMED: 52024489 (4) GERD (gastroesophageal reflux disease) ICD Codes: K21.9 - Gastro-esophageal reflux disease without esophagitis SNOMED: 816309106 (5) Atrial fibrillation with RVR ICD Codes: I48.91 - Unspecified atrial fibrillation SNOMED: 386539234315183 Status: stable Assessment/Plan: ngtf ppi bid>>will dc given Covid pepcid fu H&H monitor labs bowel regimen fu labs fu cardiology recs icu care Mervin Victoria MD Dec 27, 2019 14:45
[2019-12-27] MEDS ORDERED: fentaNYL 2500mcg/NS 250ml 250 ML IV SCH (15:15)
--- NOTE | 2019-12-27 15:33 | NUR ---
CASE MANAGEMENT:REVIEW 12/27/19 SI; NOW COVID + PNA . SEVERE ANEMIA E COLI UTI. COPD. ASP PNA. AFIB W/ PVC UNCONTROLLED HR . BLE EDEMA 100.1 99 18 118/57 97% ON MECHANICAL VENT ET TUBE (12/23/19) FiO2 40 H/H 7.8/24.1 PLT 116 BUN/CREAT 65/1.8 CA+7.9 D.LIAM 0.4 ALB 1.7 ABC : pCO2 51.9 HCO3 31.6 O2 SAT 93.5 BASE EXCESS 6.1 IS:IV D5@125ML/HR IV FENTANYL PROTOCOL IV REMDESIVIR 3X9 BAGS IV DECADRON QD IV MICAFUNGIN QD IV MEROPENEM IV POLYMYXIN BID IV LINEZOLID BID IV CARDIZEM Q6HR IV LASIX Q6HR ICU STATUS DCP; FROM [facility]: ISOLATION PRECAUTION STABILIZE RESPIRATORY STATUS FiO2 ADJUSTMENTS
--- NOTE | 2019-12-27 15:35 | NUR ---
NURSE NOTES: Dr. orellana updated at the patient room regarding abg results and progress of the hematoma on the right martínez. morning chemistry labs are with in normal values, no orders given at this time.
--- NOTE | 2019-12-27 15:35 | NUR ---
NURSE NOTES: Fentanyl bag scanned to resume with continuous rate of 20ml/hr at dose of 200mcg/hr. rass scale of -2 is reached with patient calm. additional/duplicate order placed on EMR at 1515. order scanned at 1530, spoke with pharmacist in regard to additional fentanyl order.
--- NOTE | 2019-12-27 17:20 | NUR ---
NURSE NOTES: Dr. Keen informed of patient heart rate decreased to approximately 40's in sinus bradycardia. upon suctioning patient and shaking patient, heart rate increased to 65-75.
--- NOTE | 2019-12-27 18:40 | NUR ---
NURSE NOTES: Ativan given to patient for anxiety, patient is noted to be restless, bitting the tube. reorientation and comfort measures are not providing comfort. Ativan administered through left upper arm
--- NOTE | 2019-12-27 19:20 | NUR ---
NURSE HAND-OFF REPORT: Latest Vital Signs: Temperature 99.9 , Pulse 106 , B/P 136 /73 , Respiratory Rate 18 , O2 SAT 98 , Mechanical Ventilator, O2 Flow Rate . Vital Sign Comment: EKG Rhythm: Atrial Fibrillation Rhythm change?: N Notified?: Elizabeth -MD Gaviota UNDERWOOD Response: Latest Abreu Fall Score: 75 Fall Risk: High Risk Safety Measures: Call light Within Reach, Bed Alarm Zone 2, Side Rails Side Rails x3, Bed position Low and Locked. Fall Precautions: Yellow Socks Report given to NOEL Stanley.
[2019-12-27] MEDS: Dyna-Hex 2% Top Sol 2oz TOPIC SCH (20:00)
[2019-12-27] MEDS: Miralax 17gm pkt NG SCH (21:02)
--- NOTE | 2019-12-27 22:00 | NUR ---
NURSE NOTES: Patient assessment performed; all due meds given. PICC line dressing changed using aseptic technique.. H20 flush given via NGT. Temperature noted to 99.5F. Repositioned and oral care performed. Vitals remains stable. No rhythm changed noticed. Patient making good urine output. Will continue to monitor .
[2019-12-28] VITALS (25 sets, daily range): BP systolic 99–180; BP diastolic 46–109
--- NOTE | 2019-12-28 | NUR ---
NURSE NOTES: Patient suctioned and repositioned. Patient remains at RASS score of -2. Oral care performed, vitals remain stable. Afib/Aflutter rhythm. Range of motion provided. Opens eyes to verbal stimulus for about 5-7 seconds. Patient making good urine output. Yellow in color with sediments.
--- NOTE | 2019-12-28 01:06 | Cardiology Progress Note ---
Subjective DATE OF SERVICE: Dec 27, 2019 Doing poorly - remains in ICU in critical condition with guarded prognosis. BP range has stabilized Remains COVID19 positive. Monitor: AFIb Persisting respiratory acidosis req'd intubation and mech ventilation Had coffee ground material in NGTube and hematoma on right leg; anti-coagulation discont'd Venous Duplex: negative for DVT Renal fxn and free water deficit still impaired Objective Last 24 Hour Vital Signs Date Time Temp Pulse Resp B/P (MAP) Pulse Ox O2 Delivery O2 Flow Rate FiO2 12/28/19 00:13 18 110/42 Mechanical Ventilator 40 12/28/19 00:00 Mechanical Ventilator 12/28/19 00:00 99.3 106 18 110/49 (69) 95 12/27/19 23:53 99 18 40 12/27/19 23:19 106 12/27/19 23:16 120 119/59 12/27/19 23:13 18 110/82 Mechanical Ventilator 40 12/27/19 23:00 103 18 110/82 (91) 97 12/27/19 22:13 18 114/52 Mechanical Ventilator 40 12/27/19 22:00 66 18 114/52 (72) 95 12/27/19 21:13 18 136/73 Mechanical Ventilator 40 12/27/19 21:02 106 136/73 12/27/19 21:00 80 18 136/73 (94) 98 12/27/19 20:13 18 146/59 Mechanical Ventilator 40 12/27/19 20:00 40 12/27/19 20:00 99.5 78 18 146/59 (88) 98 12/27/19 20:00 Mechanical Ventilator 12/27/19 19:25 71 18 40 12/27/19 19:13 18 130/69 Mechanical Ventilator 40 12/27/19 19:12 81 12/27/19 19:00 77 18 130/69 (89) 98 12/27/19 18:55 75 18 122/57 98 12/27/19 18:55 75 122/67 12/27/19 18:13 18 121/60 Mechanical Ventilator 40 12/27/19 18:00 78 18 121/60 (80) 96 12/27/19 17:22 113 18 115/73 95 12/27/19 17:13 18 115/73 Mechanical Ventilator 40 12/27/19 17:00 96 18 115/73 (87) 94 12/27/19 16:13 18 112/50 Mechanical Ventilator 40 12/27/19 16:00 84 18 112/50 (70) 94 12/27/19 16:00 75 12/27/19 16:00 40 12/27/19 16:00 Mechanical Ventilator 12/27/19 15:59 18 117/54 Mechanical Ventilator 40 12/27/19 15:22 79 18 40 12/27/19 15:00 87 16 125/61 (82) 94 12/27/19 14:13 18 107/47 Mechanical Ventilator 40 12/27/19 14:00 51 18 107/47 (67) 99 12/27/19 13:21 114 114/59 12/27/19 13:13 18 123/63 Mechanical Ventilator 40 12/27/19 13:07 77 12/27/19 13:00 81 18 123/63 (83) 99 12/27/19 12:13 18 109/53 Mechanical Ventilator 40 12/27/19 12:01 99.9 75 18 109/53 (71) 99 12/27/19 12:00 40 12/27/19 12:00 75 18 109/53 (71) 99 12/27/19 12:00 Mechanical Ventilator 12/27/19 12:00 86 12/27/19 11:30 75 18 109/53 (71) 99 12/27/19 11:13 18 108/53 Mechanical Ventilator 40 12/27/19 11:00 74 18 108/53 (71) 99 12/27/19 10:54 73 18 40 12/27/19 10:30 77 18 107/56 (73) 99 12/27/19 10:29 76 18 110/49 100 12/27/19 10:13 19 110/49 Mechanical Ventilator 40 12/27/19 10:00 106 20 97/56 (70) 91 12/27/19 09:40 114 18 119/60 94 12/27/19 09:40 114 119/60 12/27/19 09:13 20 113/41 Mechanical Ventilator 40 12/27/19 09:00 112 18 113/41 (65) 92 12/27/19 08:13 18 118/57 Mechanical Ventilator 40 12/27/19 08:00 100.1 99 18 118/57 (77) 97 12/27/19 08:00 40 12/27/19 08:00 77 12/27/19 08:00 Mechanical Ventilator 12/27/19 07:29 85 18 40 12/27/19 07:13 18 115/53 Mechanical Ventilator 40 12/27/19 07:00 63 18 115/53 (73) 96 12/27/19 06:13 18 109/47 Mechanical Ventilator 40 12/27/19 06:00 70 18 109/47 (67) 97 12/27/19 05:31 74 115/51 12/27/19 05:13 18 106/57 Mechanical Ventilator 40 12/27/19 05:00 77 18 106/57 (73) 96 12/27/19 04:13 18 100/48 Mechanical Ventilator 40 12/27/19 04:00 98.9 79 18 100/48 (65) 97 12/27/19 04:00 40 12/27/19 04:00 Mechanical Ventilator 12/27/19 03:45 80 18 108/53 (71) 97 12/27/19 03:30 85 18 106/52 (70) 97 12/27/19 03:30 83 12/27/19 03:27 86 18 106/52 100 12/27/19 03:13 18 118/51 Mechanical Ventilator 40 12/27/19 03:08 109 19 40 12/27/19 03:00 107 15 118/51 (73) 96 12/27/19 02:58 18 109/56 Mechanical Ventilator 40 12/27/19 02:57 104 18 109/56 98 12/27/19 02:00 18 127/53 Mechanical Ventilator 40 12/27/19 02:00 69 18 127/53 (77) 97 ROS: unchanged from 12/12/19 HEENT: Orally intubated, Mechanically Ventilated, Thin secretions ET Tube, other - NGtube RHYTHM: NSR, ST LUNGS: diminished breath sounds, right-sided rhonchi CARDIAC: normal S1 and S2, irregularly irregular ABDOMEN: other - obese EXTREMITIES: moderate edema - mostly non pitting, other - hematoma right leg Laboratory Tests Test 12/27/19 04:00 12/27/19 08:12 12/27/19 13:19 12/27/19 17:19 White Blood Count 7.1 K/UL (4.8-10.8) Red Blood Count 2.79 M/UL (4.20-5.40) L Hemoglobin 7.8 G/DL (12.0-16.0) L Hematocrit 24.1 % (37.0-47.0) L Mean Corpuscular Volume 86 FL (80-99) Mean Corpuscular Hemoglobin 27.9 PG (27.0-31.0) Mean Corpuscular Hemoglobin Concent 32.4 G/DL (32.0-36.0) Red Cell Distribution Width 15.6 % (11.6-14.8) H Platelet Count 116 K/UL (150-450) L Mean Platelet Volume 7.5 FL (6.5-10.1) Neutrophils (%) (Auto) % (45.0-75.0) Lymphocytes (%) (Auto) % (20.0-45.0) Monocytes (%) (Auto) % (1.0-10.0) Eosinophils (%) (Auto) % (0.0-3.0) Basophils (%) (Auto) % (0.0-2.0) Sodium Level 144 MMOL/L (136-145) Potassium Level 3.6 MMOL/L (3.5-5.1) Chloride Level 106 MMOL/L (98-107) Carbon Dioxide Level 28 MMOL/L (21-32) Anion Gap 10 mmol/L (5-15) Blood Urea Nitrogen 65 mg/dL (7-18) H Creatinine 1.8 MG/DL (0.55-1.30) H Estimat Glomerular Filtration Rate 28.0 mL/min (>60) Glucose Level 109 MG/DL (74-106) H Calcium Level 7.9 MG/DL (8.5-10.1) L Total Bilirubin 0.8 MG/DL (0.2-1.0) Direct Bilirubin 0.4 MG/DL (0.0-0.3) H Aspartate Amino Transf (AST/SGOT) 17 U/L (15-37) Alanine Aminotransferase (ALT/SGPT) 17 U/L (12-78) Alkaline Phosphatase 69 U/L (46-116) Total Protein 6.5 G/DL (6.4-8.2) Albumin 1.7 G/DL (3.4-5.0) L Globulin 4.8 g/dL Albumin/Globulin Ratio 0.4 (1.0-2.7) L Arterial Blood pH 7.402 (7.350-7.450) Arterial Blood Partial Pressure CO2 51.9 mmHg (35.0-45.0) H Arterial Blood Partial Pressure O2 79.7 mmHg (75.0-100.0) Arterial Blood HCO3 31.6 mmol/L (22.0-26.0) H Arterial Blood Oxygen Saturation 93.5 % (95-100) L Arterial Blood Base Excess 6.1 (-2-2) H Eugene Test Positive POC Whole Blood Glucose 144 MG/DL (74-106) H 171 MG/DL (74-106) H Microbiology Date/Time Source Procedure Growth Status 12/25/19 15:45 Blood Blood Culture - Preliminary NO GROWTH AFTER 24 HOURS Resulted 12/25/19 15:35 Blood Blood Culture - Preliminary NO GROWTH AFTER 24 HOURS Resulted Assessment/Plan Assessment/Plan CRITICAL AND GUARDED Acute respiratory failure Acute on chronic respiratory acidosis AFiB with RVR improved CHF, ac/chr diast - compensated BLE edema Sepsis with shock obesity COPD with bronchospasm Acute renal failure - worsening Pleural effusion GI bleeding Acute diastolic CHF Covid 19 PNA Vent support Monitor acid/base parameters. Antimicrobials Titrate rate-control meds - hold digitalis for elevated levels. Maintain diltiazem and metoprolol. DC apixaban - hold anticoagulation due to GI bleeding. Hypotonic IVF until po intake improves and free water deficit corrected. Continued monitor worker Diuresis based on clinical parameters; trend BNP May need trach Consider therapeutic thorocentesis Jerome Meek MD Dec 28, 2019 01:06
[2019-12-28] MEDS: LORazepam Inj 2mg/ml 1ml IV PRN ×2 (03:42→08:46)
[2019-12-28] MEDS: Meropenem 500 MG in NS 55 ML IVPB SCH ×2 (03:42→16:00)
[2019-12-28] MEDS: fentaNYL 2500mcg/NS 250ml 250 ML IV SCH ×2 (04:10→16:59)
[2019-12-28 04:50] LABS: HEMATOCRIT 23.7 % (37.0-47.0); HEMOGLOBIN 7.7 G/DL (12.0-16.0); MEAN CORPUSCULAR VOLUME 87 FL (80-99); PLATELET COUNT 104 K/UL (150-450); RED BLOOD COUNT 2.73 M/UL (4.20-5.40); RED CELL DISTRIBUTION WIDTH 17.1 % (11.6-14.8); WHITE BLOOD COUNT 6.9 K/UL (4.8-10.8)
[2019-12-28 05:00] LABS: ALBUMIN 1.7 G/DL (3.4-5.0); ALBUMIN/GLOBULIN RATIO 0.3 (1.0-2.7); BILIRUBIN,DIRECT 0.4 MG/DL (0.0-0.3); BILIRUBIN,TOTAL 0.8 MG/DL (0.2-1.0); CALCIUM 7.9 MG/DL (8.5-10.1); CREATININE 1.9 MG/DL (0.55-1.30); POTASSIUM 3.5 MMOL/L (3.5-5.1)
--- NOTE | 2019-12-28 05:00 | NUR ---
NURSE NOTES: Patient noted to have temperature of 101.2F (rectal source). Tylenol 650mg via NGT and cooling blanket applied.
[2019-12-28] MEDS: dilTIAZem HCl 90mg tab NG SCH ×4 (05:04→23:52)
[2019-12-28] MEDS: NovoLOG Insulin Flexpen SUBQ SCH ×4 (05:04→20:35)
[2019-12-28] MEDS: Acetaminophen 650mg/20.3ml NG PRN (05:27)
--- NOTE | 2019-12-28 06:00 | NUR ---
NURSE NOTES: Patients temperature now is 100.3F (rectal). Cooling measures ongoing.
--- NOTE | 2019-12-28 07:20 | NUR ---
HAND-OFF: Report given to Joanie COHEN.
--- NOTE | 2019-12-28 07:36 | NUR ---
NURSE NOTES: Report received from NOEL Stanley. Patient febrile at 100.3 and on cooling blanket.Afib on the monitor with no symptoms of chest pain.Orally intubated ETT 7.5 AC 18, VT 600 FiO2 40% Peep 5.Mouth care done and suctioned as tolerated.Patient repositioned with pillow support.Patient has a MARBELLA PICC line inserted 12/26/19 and dressing changed 12/27/2019. Line running TKO and Fentanyl at 200mcg/hr.Patient on P200 mattress for skin management. Patient also noted with LLE hematoma and BLE edema.Patient on GT feeding Nepro @40cc/hr with no residual at this time.GT placement intact and flushed as tolerated.HOB elevated to prevent aspiration.Call light within easy reach.Will continue close monitoring
[2019-12-28] MEDS: Docusate 100mg/10ml Liq NG SCH ×2 (08:46→17:12)
[2019-12-28] MEDS: Enoxaparin 60mg Inj SUBQ SCH (08:50)
[2019-12-28] MEDS: Polymyxin B Sulfate 500,000 units in D5W 550ml IV SCH ×2 (08:52→20:34)
[2019-12-28] MEDS: Micafungin 100 MG in NS 110 ML IVPB SCH (08:52)
[2019-12-28] MEDS: Metoprolol Tartrate 50mg tab NG SCH ×2 (08:53→20:35)
[2019-12-28] MEDS: dexAMETHasone 10mg/ml Inj IV SCH (08:54)
[2019-12-28] MEDS: Bacitracin Oint 15gm Tube TOPIC SCH ×2 (08:59→17:02)
--- NOTE | 2019-12-28 09:15 | NUR ---
NURSE NOTES: Patient was seen by Dr Dumont with order to follow up with the long term care social worker if patient has a family or not.Per long term care social worker, no family and patient has a POLST dated 12/09/2017 for DNR with comfort care , no artificial meaning of feeding.Dr Barr made aware with order of bioethic consult.utility worker forge made aware.Order noted and carried out
--- NOTE | 2019-12-28 10:04 | Pulmonolgy Critical Care Note ---
AndrésLuz REVENUE OFFICER 12/28/19 1004: Critical Care - Asmt/Plan Assessment/Plan: ASSESSMENT acute hypoxemic hypercapnic resp failure, requiring intubation 12/22 COVID 19 PNA sepsis fungemia UTI with E coli ESBL UTI VRE possible aspiration PNA COPD Bronchospasm Atrial fibrillation with rapid ventricular response Congestive heart failure Acute renal failure on CKD Severe anemia Probable GI bleeding Thrombocytopenia Status post ground fall Tobacco dependency Morbid obesity probably GARY Homeless R knee edema and hematoma, likely sprain /strain post fall PLAN OF CARE ICU intubated 12/22 ABG better with AC 18, mild hypoxia titrate Fio2 to keep sat above 90% CXR this am pending, CXR 12/26 no significant changes fup with CXR and ABG MDI Albuterol in line with vent steroids IV ( started 12/23) and Remdesivir (started 12/24 ) sedation with Fentanyl gtt and Ativan prn DVT prophylaxis with Lovenox prior Venous Duplex BLE -NGT COVID 19 by PCR 12/22 positive isolation IL 6 52 , initial CRP 15.6, ferritin 769, fup with inflammatory markers CRP up to 26.3, now down to 16.1; 12/27 -39.1 ; ferritin down to 629 on diuresis with Lasix , monitor volumes closely creat remains stable rate control- per cardio recs: monitor volumes pro BNP trending down ECHO with pEF no evidence of WMA GI prophylaxis with PPI s/p Venofer x 2 s/p blood transfusion 12/25 monitor HH with goal to keep Hgb >7 GI procedure when stable monitor PLT counts renal US no hydro, BL nonobstructive stones s/p IV hydration, now resumed again per nephro monitor renal parameters, lytes , e/lyte management as per nephro recs UCX 12/11 + E coli ESBL, BCX 12/16 12 + yeast, fup with yeast ID, ? source BCX 12/17 NGTD BCX 12/22 and 12/24 NGTD UCX 12/16 VRE SCX 12/19 MRSA, ACB MDR now on meropenem , micafungin , Polymyxin and Zyvox -as per ID recs , cooling blanket prn fevers prior X ray R knee given fall 12/15 , large hematoma, swelling-no fx or dislocation ice R knee and elevate CT head no acute IC pathology fall precautions prior declined Nicotine patch discussion on weight loss if receptive - not at this time; anxious and wants to go home pain management anxiolytic prn SW consult for placement case discussed and evaluated by supervising physician ivy mccarty for a consul t! Critical Care - Objective Last 24 Hour Vital Signs Date Time Temp Pulse Resp B/P (MAP) Pulse Ox O2 Delivery O2 Flow Rate FiO2 12/28/19 09:00 98.8 96 16 140/53 (82) 100 12/28/19 09:00 96 16 140/53 100 12/28/19 08:53 106 145/72 12/28/19 08:46 106 18 142/72 100 12/28/19 08:00 40 12/28/19 08:00 Mechanical Ventilator 12/28/19 08:00 66 18 99/47 (64) 100 12/28/19 08:00 64 12/28/19 07:28 70 18 40 12/28/19 07:13 18 135/61 Mechanical Ventilator 40 12/28/19 07:00 59 18 128/64 (85) 100 12/28/19 06:13 18 102/47 Mechanical Ventilator 40 12/28/19 06:00 100.3 67 18 102/46 (64) 99 12/28/19 05:57 100.3 12/28/19 05:13 18 115/50 Mechanical Ventilator 40 12/28/19 05:04 105 124/109 12/28/19 05:00 101.2 106 16 124/109 (114) 92 12/28/19 04:13 18 142/64 Mechanical Ventilator 40 12/28/19 04:12 79 18 131/71 99 12/28/19 04:10 18 142/64 Mechanical Ventilator 40 12/28/19 04:00 Mechanical Ventilator 12/28/19 04:00 99.2 79 18 134/63 (86) 96 12/28/19 04:00 40 12/28/19 03:45 18 131/58 Mechanical Ventilator 40 12/28/19 03:42 75 20 132/60 100 12/28/19 03:15 94 18 40 12/28/19 03:13 20 132/60 Mechanical Ventilator 40 12/28/19 03:11 75 12/28/19 03:00 75 18 115/53 (73) 100 12/28/19 02:13 18 126/56 Mechanical Ventilator 40 12/28/19 02:00 72 20 121/56 (77) 100 12/28/19 01:13 18 139/57 Mechanical Ventilator 40 12/28/19 01:00 105 17 139/57 (84) 99 12/28/19 00:13 18 110/42 Mechanical Ventilator 40 12/28/19 00:00 Mechanical Ventilator 12/28/19 00:00 40 12/28/19 00:00 99.3 106 18 110/49 (69) 95 12/27/19 23:53 99 18 40 12/27/19 23:19 106 12/27/19 23:16 120 119/59 12/27/19 23:13 18 110/82 Mechanical Ventilator 40 12/27/19 23:00 103 18 110/82 (91) 97 12/27/19 22:13 18 114/52 Mechanical Ventilator 40 12/27/19 22:00 66 18 114/52 (72) 95 12/27/19 21:13 18 136/73 Mechanical Ventilator 40 12/27/19 21:02 106 136/73 12/27/19 21:00 80 18 136/73 (94) 98 12/27/19 20:13 18 146/59 Mechanical Ventilator 40 12/27/19 20:00 40 12/27/19 20:00 99.5 78 18 146/59 (88) 98 12/27/19 20:00 Mechanical Ventilator 12/27/19 19:25 71 18 40 12/27/19 19:13 18 130/69 Mechanical Ventilator 40 12/27/19 19:12 81 12/27/19 19:00 77 18 130/69 (89) 98 12/27/19 18:55 75 18 122/57 98 12/27/19 18:55 75 122/67 12/27/19 18:13 18 121/60 Mechanical Ventilator 40 12/27/19 18:00 78 18 121/60 (80) 96 12/27/19 17:22 113 18 115/73 95 12/27/19 17:13 18 115/73 Mechanical Ventilator 40 12/27/19 17:00 96 18 115/73 (87) 94 12/27/19 16:13 18 112/50 Mechanical Ventilator 40 12/27/19 16:00 84 18 112/50 (70) 94 12/27/19 16:00 75 12/27/19 16:00 40 12/27/19 16:00 Mechanical Ventilator 12/27/19 15:59 18 117/54 Mechanical Ventilator 40 12/27/19 15:22 79 18 40 12/27/19 15:00 87 16 125/61 (82) 94 12/27/19 14:13 18 107/47 Mechanical Ventilator 40 12/27/19 14:00 51 18 107/47 (67) 99 12/27/19 13:21 114 114/59 12/27/19 13:13 18 123/63 Mechanical Ventilator 40 12/27/19 13:07 77 12/27/19 13:00 81 18 123/63 (83) 99 12/27/19 12:13 18 109/53 Mechanical Ventilator 40 12/27/19 12:01 99.9 75 18 109/53 (71) 99 12/27/19 12:00 40 12/27/19 12:00 75 18 109/53 (71) 99 12/27/19 12:00 Mechanical Ventilator 12/27/19 12:00 86 12/27/19 11:30 75 18 109/53 (71) 99 12/27/19 11:13 18 108/53 Mechanical Ventilator 40 12/27/19 11:00 74 18 108/53 (71) 99 12/27/19 10:54 73 18 40 12/27/19 10:30 77 18 107/56 (73) 99 12/27/19 10:29 76 18 110/49 100 12/27/19 10:13 19 110/49 Mechanical Ventilator 40 12/27/19 10:00 106 20 97/56 (70) 91 Objective: General Appearance: morbidly obese , sedated, on vent AC 600-18-40% PEEP 5 Lines, tubes and drains: peripheral HEENT: normocephalic, atraumatic, anicteric, NGT in , OP with ET Neck: non-tender Respiratory/Chest: chest wall non-tender, no accessory muscle use, decreased breath sounds; Cardiovascular/Chest: irregularly irregular - A fib , tachy at times , distant heart sounds, LUE PICC in place , intact Abdomen: normal bowel sounds, non tender , obese, soft Extremities: no calf tenderness, moderate edema - +3 BLE, R knee with large hematoma, edema, Skin Exam: warm/dry, multiple tattoos Neurologic: sedated Musculoskeletal: normal muscle bulk Micro: Microbiology Date/Time Source Procedure Growth Status 12/25/19 15:45 Blood Blood Culture - Preliminary NO GROWTH AFTER 48 HOURS Resulted 12/25/19 15:35 Blood Blood Culture - Preliminary NO GROWTH AFTER 48 HOURS Resulted Accucheck: 109 Critical Care - Subjective ROS Limited/Unobtainable: Yes Interval Events: in isolation fevers this am\ no leukocytosis CXR without much changes on steroids and Remdesivir as well as multiple abx ABG this am with mild hypoxia on FiO2 40% PLT trending down creat 1.9 Hgb 7.7 Condition: critical IV Access: PICC - LUE intact EKG Rhythm: Atrial Fibrillation FI02: 40 Vent Support Breath Rate: 18 Vent Support Mode: AC Vent Tidal Volume: 600 Sputum Amount: Moderate PEEP: 5.0 PIP: 45 Drips: Fentanyl gtt 200 mcg/hr Tube Feeding Amount: 40 I&O: Intake and Output 12/27/19 12/28/19 19:00 07:00 Intake Total 1335.82412 ml 1695 ml Output Total 885 ml 1475 ml Balance 450.58506 ml 220 ml Free Water 150 ml 110 ml IV Total 655.31723 ml 1145 ml Tube Feeding 480 ml 440 ml Other 50 ml Output Urine Total 885 ml 1475 ml # Bowel Movements 2 CXR: 12/26 Bilateral infiltrates and layering right pleural effusion, not significantly changed compared to the prior exam. ET-Tube: 7.5 ET Position: 24 Colt Keen MD 12/28/19 1517: Critical Care - Asmt/Plan Assessment/Plan: Patient seen and examined with REVENUE OFFICER and I agree with the above formulated assessment and plan. * overall minimal vent settings but agitated * weaning trials tomorrow with high PS settings to start, goal MV 10 lpm * cont abx * remdesivir 12/24-12/29 * Dexamethasone 12/23-01/02 * monitor wounds, wound care * Monitor volumes, cont diuresis * thoracentesis eval when able Time Spent (Minutes): 40 - cc Luz Bowen REVENUE OFFICER Dec 28, 2019 10:04 Colt Keen MD Dec 28, 2019 15:17
--- NOTE | 2019-12-28 10:11 | NUR ---
NURSE NOTES: Patient seen by Luz Bowen and [id number] to 50%. Restraints release and patient turned and repositioned for skin management and comfort.Tolerate well feeding with no sign of acute distress, HOB elevated to prevent aspiration.Call light within easy reach.Will continue same plan of care
--- NOTE | 2019-12-28 11:03 | NUR ---
RADIOLOGY DEPT., CHEST X-RAY DONE.-P.DYE
--- NOTE | 2019-12-28 11:57 | Surgery Progress Note ---
Surgery Progress Note Subjective Additional Comments ill appearing labs reviewed exam stable may need trach Objective Last 24 Hour Vital Signs Date Time Temp Pulse Resp B/P (MAP) Pulse Ox O2 Delivery O2 Flow Rate FiO2 12/28/19 11:37 72 142/62 12/28/19 11:30 67 18 142/62 (88) 100 12/28/19 11:05 75 18 40 12/28/19 11:00 62 18 161/85 (110) 99 12/28/19 11:00 16 145/62 Mechanical Ventilator 50 12/28/19 10:00 58 18 162/72 (102) 100 12/28/19 10:00 18 155/75 Mechanical Ventilator 50 12/28/19 09:00 98.8 96 16 140/53 (82) 100 12/28/19 09:00 18 142/72 Mechanical Ventilator 40 12/28/19 09:00 96 16 140/53 100 12/28/19 08:53 106 145/72 12/28/19 08:46 106 18 142/72 100 12/28/19 08:00 40 12/28/19 08:00 18 96/56 Mechanical Ventilator 40 12/28/19 08:00 Mechanical Ventilator 12/28/19 08:00 66 18 99/47 (64) 100 12/28/19 08:00 64 12/28/19 07:28 70 18 40 12/28/19 07:13 18 135/61 Mechanical Ventilator 40 12/28/19 07:00 59 18 128/64 (85) 100 12/28/19 06:13 18 102/47 Mechanical Ventilator 40 12/28/19 06:00 100.3 67 18 102/46 (64) 99 12/28/19 05:57 100.3 12/28/19 05:13 18 115/50 Mechanical Ventilator 40 12/28/19 05:04 105 124/109 12/28/19 05:00 101.2 106 16 124/109 (114) 92 12/28/19 04:13 18 142/64 Mechanical Ventilator 40 12/28/19 04:12 79 18 131/71 99 12/28/19 04:10 18 142/64 Mechanical Ventilator 40 12/28/19 04:00 Mechanical Ventilator 12/28/19 04:00 99.2 79 18 134/63 (86) 96 12/28/19 04:00 40 12/28/19 03:45 18 131/58 Mechanical Ventilator 40 12/28/19 03:42 75 20 132/60 100 12/28/19 03:15 94 18 40 12/28/19 03:13 20 132/60 Mechanical Ventilator 40 12/28/19 03:11 75 12/28/19 03:00 75 18 115/53 (73) 100 12/28/19 02:13 18 126/56 Mechanical Ventilator 40 12/28/19 02:00 72 20 121/56 (77) 100 12/28/19 01:13 18 139/57 Mechanical Ventilator 40 12/28/19 01:00 105 17 139/57 (84) 99 12/28/19 00:13 18 110/42 Mechanical Ventilator 40 12/28/19 00:00 Mechanical Ventilator 12/28/19 00:00 40 12/28/19 00:00 99.3 106 18 110/49 (69) 95 12/27/19 23:53 99 18 40 12/27/19 23:19 106 12/27/19 23:16 120 119/59 12/27/19 23:13 18 110/82 Mechanical Ventilator 40 12/27/19 23:00 103 18 110/82 (91) 97 12/27/19 22:13 18 114/52 Mechanical Ventilator 40 12/27/19 22:00 66 18 114/52 (72) 95 12/27/19 21:13 18 136/73 Mechanical Ventilator 40 12/27/19 21:02 106 136/73 12/27/19 21:00 80 18 136/73 (94) 98 12/27/19 20:13 18 146/59 Mechanical Ventilator 40 12/27/19 20:00 40 12/27/19 20:00 99.5 78 18 146/59 (88) 98 12/27/19 20:00 Mechanical Ventilator 12/27/19 19:25 71 18 40 12/27/19 19:13 18 130/69 Mechanical Ventilator 40 12/27/19 19:12 81 12/27/19 19:00 77 18 130/69 (89) 98 12/27/19 18:55 75 18 122/57 98 12/27/19 18:55 75 122/67 12/27/19 18:13 18 121/60 Mechanical Ventilator 40 12/27/19 18:00 78 18 121/60 (80) 96 12/27/19 17:22 113 18 115/73 95 12/27/19 17:13 18 115/73 Mechanical Ventilator 40 12/27/19 17:00 96 18 115/73 (87) 94 12/27/19 16:13 18 112/50 Mechanical Ventilator 40 12/27/19 16:00 84 18 112/50 (70) 94 12/27/19 16:00 75 12/27/19 16:00 40 12/27/19 16:00 Mechanical Ventilator 12/27/19 15:59 18 117/54 Mechanical Ventilator 40 12/27/19 15:22 79 18 40 12/27/19 15:00 87 16 125/61 (82) 94 12/27/19 14:13 18 107/47 Mechanical Ventilator 40 12/27/19 14:00 51 18 107/47 (67) 99 12/27/19 13:21 114 114/59 12/27/19 13:13 18 123/63 Mechanical Ventilator 40 12/27/19 13:07 77 12/27/19 13:00 81 18 123/63 (83) 99 12/27/19 12:13 18 109/53 Mechanical Ventilator 40 12/27/19 12:01 99.9 75 18 109/53 (71) 99 12/27/19 12:00 40 12/27/19 12:00 75 18 109/53 (71) 99 12/27/19 12:00 Mechanical Ventilator 12/27/19 12:00 86 I&O Intake and Output 12/27/19 12/28/19 19:00 07:00 Intake Total 1335.54111 ml 1695 ml Output Total 885 ml 1475 ml Balance 450.98934 ml 220 ml Free Water 150 ml 110 ml IV Total 655.90966 ml 1145 ml Tube Feeding 480 ml 440 ml Other 50 ml Output Urine Total 885 ml 1475 ml # Bowel Movements 2 Dressing: other Cardiovascular: RSR Respiratory: decreased breath sounds Abdomen: soft, non-tender, present bowel sounds Extremities: no cyanosis Laboratory Tests Test 12/27/19 13:19 12/27/19 17:19 12/28/19 04:00 12/28/19 08:12 POC Whole Blood Glucose 144 MG/DL (74-106) H 171 MG/DL (74-106) H White Blood Count 6.9 K/UL (4.8-10.8) Red Blood Count 2.73 M/UL (4.20-5.40) L Hemoglobin 7.7 G/DL (12.0-16.0) L Hematocrit 23.7 % (37.0-47.0) L Mean Corpuscular Volume 87 FL (80-99) Mean Corpuscular Hemoglobin 28.1 PG (27.0-31.0) Mean Corpuscular Hemoglobin Concent 32.3 G/DL (32.0-36.0) Red Cell Distribution Width 17.1 % (11.6-14.8) H Platelet Count 104 K/UL (150-450) L Mean Platelet Volume 7.5 FL (6.5-10.1) Neutrophils (%) (Auto) % (45.0-75.0) Lymphocytes (%) (Auto) % (20.0-45.0) Monocytes (%) (Auto) % (1.0-10.0) Eosinophils (%) (Auto) % (0.0-3.0) Basophils (%) (Auto) % (0.0-2.0) Differential Total Cells Counted 100 Neutrophils % (Manual) 89 % (45-75) H Lymphocytes % (Manual) 7 % (20-45) L Monocytes % (Manual) 4 % (1-10) Eosinophils % (Manual) 0 % (0-3) Basophils % (Manual) 0 % (0-2) Band Neutrophils 0 % (0-8) Platelet Estimate Decreased L Platelet Morphology Normal Polychromasia 1+ Hypochromasia 1+ Anisocytosis 1+ Sodium Level 147 MMOL/L (136-145) H Potassium Level 3.5 MMOL/L (3.5-5.1) Chloride Level 107 MMOL/L (98-107) Carbon Dioxide Level 31 MMOL/L (21-32) Anion Gap 9 mmol/L (5-15) Blood Urea Nitrogen 72 mg/dL (7-18) H Creatinine 1.9 MG/DL (0.55-1.30) H Estimat Glomerular Filtration Rate 26.3 mL/min (>60) Glucose Level 109 MG/DL (74-106) H Calcium Level 7.9 MG/DL (8.5-10.1) L Total Bilirubin 0.8 MG/DL (0.2-1.0) Direct Bilirubin 0.4 MG/DL (0.0-0.3) H Aspartate Amino Transf (AST/SGOT) 19 U/L (15-37) Alanine Aminotransferase (ALT/SGPT) 17 U/L (12-78) Alkaline Phosphatase 81 U/L (46-116) C-Reactive Protein, Quantitative 39.1 mg/dL (0.00-0.90) H Total Protein 6.7 G/DL (6.4-8.2) Albumin 1.7 G/DL (3.4-5.0) L Globulin 5.0 g/dL Albumin/Globulin Ratio 0.3 (1.0-2.7) L Arterial Blood pH 7.481 (7.350-7.450) Arterial Blood Partial Pressure CO2 38.7 mmHg (35.0-45.0) Arterial Blood Partial Pressure O2 70.3 mmHg (75.0-100.0) L Arterial Blood HCO3 28.2 mmol/L (22.0-26.0) H Arterial Blood Oxygen Saturation 90.5 % (95-100) L Arterial Blood Base Excess 4.4 (-2-2) H Eugene Test Positive Plan Problems: (1) Urinary tract infection (2) CHF exacerbation (3) History of schizophrenia (4) Atrial fibrillation with RVR (5) Schizophrenia (6) GERD (gastroesophageal reflux disease) (7) Smoker (8) Atrial fibrillation with rapid ventricular response (9) Lymphadema (10) COPD (chronic obstructive pulmonary disease) (11) CKD (chronic kidney disease) stage 3, GFR 30-59 ml/min (12) NATALIE (acute kidney injury) (13) Dehydration (14) Dysphagia (15) UTI (urinary tract infection) (16) UGI bleed (17) ESBL (extended spectrum beta-lactamase) producing bacteria infection (18) Constipation (19) Lactic acidosis (20) Tinea cruris (21) Onychomycosis (22) Emesis (23) Essential hypertension (24) Anemia (25) Cough (26) Depression (27) Depression (28) Edema (29) Rash (30) Opiate dependence (31) Opiate dependence (32) Opiate dependence (33) Opiate dependence (34) Pyelonephritis (35) Sepsis (36) UTI (urinary tract infection) (37) Nausea and vomiting (38) Abdominal pain Assessment & Plan: [age]-year-old female obese white abdominal pain deep tissue injury identified limited mobility on HD. KUB noted tube in place continue meds feeds Does not seem obstructed We will monitor FINDINGS: Lower thorax: Obscuration of the left costophrenic angle suggestive of pleural effusion. Intraperitoneal space: No free air. Gastrointestinal tract: Unremarkable. No dilation. Bones/joints: Unremarkable. Tubes, lines and devices: The nasogastric tube has the tip at the mid inferior aspect of the gastric body. Other findings: Nonspecific gas pattern. Single frontal view of the abdomen demonstrates tip of the enteric tube and distal side-port projecting over the stomach. Gas is identified within the nondistended large bowel. There is a paucity of small bowel gas seen. Partially visualized left pleural effusion. No other significant interval change. (39) Chest pain (40) Chest pain (41) Nausea (42) Obesity (43) Chronic ulcer of leg (44) Chronic ulcer of leg (45) Chronic ulcer of leg (46) ACS (acute coronary syndrome) (47) Acute chest pain (48) Encounter for dressing change or suture removal (49) Left leg cellulitis (50) Acute encephalopathy (51) Encounter for wound re-check (52) Intractable nausea and vomiting (53) Infection due to ESBL-producing Escherichia coli (54) Chronic venous stasis (55) Change of dressing (56) Change of dressing (57) Change of dressing (58) Change of dressing (59) Change of dressing (60) Change of dressing (61) Change of dressing (62) Change of dressing (63) ESBL urine (64) Lymphadema (65) Lymphedema (66) Lymphedema (67) Lymphedema (68) Lymphedema (69) Lymphedema (70) Lymphedema (71) Lymphedema (72) Lymphedema (73) Open wound of foot (74) Open wound of foot (75) cellulitis (76) chronic lymphedema (77) chronic lymphedema (78) chronic lymphedema (79) hypertension uncontrolled (80) hypertension uncontrolled (81) Intertrigo (82) Sciatica (83) Cellulitis (84) Schizophrenia (85) Chronic bronchitis (86) HTN (hypertension) (87) Venous stasis ulcers (88) Medication refill (89) Chest pain, atypical (90) BMI 45.0-49.9, adult (91) Lymphedema of both lower extremities (92) hypertension uncontrolled (93) hypertension uncontrolled (94) hypertension uncontrolled (95) tenia corpus (96) Deep tissue injury Assessment & Plan: Morbidly obese pt whom presented on admission with Pressure injuries, Edemae bilat lower extremities eschar to dorsal aspects of metatarsals. Pt is very demanding of staff and can be resistive to repositioning. DTPI noted to L Sacrum(L)5.5cm x (W)2.5cm. Base of Pressure Injury is Maroon and indurated with surrounding non-blanchable erythema DTPI R Sacrum(L)5.5cm x (W)2.3cm. Base of Pressure Injury is maroon with purpuric center that is fluctuant. Pt complained of tenderness when minimally palpated. Bilat lower extremities are edematous . Dry eschar noted to nail matrix and tip of L 1st metatarsal, Dorsal L 2nd metatarsal, R 2nd and R 4th metatarsals. Both heels are boggy with non-Blanchable erythema. blisters forming on Right lower extremity anterior tibia. not infected cellulitis / edema on b/l le stable cont abx Tx.Plan: Apply Moisture Barrier Paste to Sacrum R and L gluteal cheeks. Cover with Optifoam drsgs. Change every 3 days and prn. Apply Betadine to dry eschar metatarsals both feet Daily. Apply Cavilon Skin Barrier to both heels. Cover each heel with Optifoam drsgs. Change every 7days and prn. Reposition at least every 2hours or as tolerated. Off-load heels with pillow. right leg hematoma stable critically ill and edema on right leg has compromised dermis over the hematoma. will likely need debridement once improved (97) COVID-19 Assessment & Plan: ++ on vent weaning abx as per ID (98) Respiratory failure (99) Pneumonia Juan Manuel Buckner Dec 28, 2019 11:57
--- NOTE | 2019-12-28 12:02 | General Progress Note ---
Subjective ROS Limited/Unobtainable: Yes Allergies: Coded Allergies: ERYTHROMYCIN BASE (Verified Allergy, Severe, 12/12/19) HALOPERIDOL (Verified Allergy, Unknown, 12/12/19) VANCOMYCIN (Unverified Adverse Reaction, Intermediate, Shortness of Breath, 12/12/19) Objective Last 24 Hour Vital Signs Date Time Temp Pulse Resp B/P (MAP) Pulse Ox O2 Delivery O2 Flow Rate FiO2 12/28/19 11:37 72 142/62 12/28/19 11:30 67 18 142/62 (88) 100 12/28/19 11:05 75 18 40 12/28/19 11:00 62 18 161/85 (110) 99 12/28/19 11:00 16 145/62 Mechanical Ventilator 50 12/28/19 10:00 58 18 162/72 (102) 100 12/28/19 10:00 18 155/75 Mechanical Ventilator 50 12/28/19 09:00 98.8 96 16 140/53 (82) 100 12/28/19 09:00 18 142/72 Mechanical Ventilator 40 12/28/19 09:00 96 16 140/53 100 12/28/19 08:53 106 145/72 12/28/19 08:46 106 18 142/72 100 12/28/19 08:00 40 12/28/19 08:00 18 96/56 Mechanical Ventilator 40 12/28/19 08:00 Mechanical Ventilator 12/28/19 08:00 66 18 99/47 (64) 100 12/28/19 08:00 64 12/28/19 07:28 70 18 40 12/28/19 07:13 18 135/61 Mechanical Ventilator 40 12/28/19 07:00 59 18 128/64 (85) 100 12/28/19 06:13 18 102/47 Mechanical Ventilator 40 12/28/19 06:00 100.3 67 18 102/46 (64) 99 12/28/19 05:57 100.3 12/28/19 05:13 18 115/50 Mechanical Ventilator 40 12/28/19 05:04 105 124/109 12/28/19 05:00 101.2 106 16 124/109 (114) 92 12/28/19 04:13 18 142/64 Mechanical Ventilator 40 12/28/19 04:12 79 18 131/71 99 12/28/19 04:10 18 142/64 Mechanical Ventilator 40 12/28/19 04:00 Mechanical Ventilator 12/28/19 04:00 99.2 79 18 134/63 (86) 96 12/28/19 04:00 40 12/28/19 03:45 18 131/58 Mechanical Ventilator 40 12/28/19 03:42 75 20 132/60 100 12/28/19 03:15 94 18 40 12/28/19 03:13 20 132/60 Mechanical Ventilator 40 12/28/19 03:11 75 12/28/19 03:00 75 18 115/53 (73) 100 12/28/19 02:13 18 126/56 Mechanical Ventilator 40 12/28/19 02:00 72 20 121/56 (77) 100 12/28/19 01:13 18 139/57 Mechanical Ventilator 40 12/28/19 01:00 105 17 139/57 (84) 99 12/28/19 00:13 18 110/42 Mechanical Ventilator 40 12/28/19 00:00 Mechanical Ventilator 12/28/19 00:00 40 12/28/19 00:00 99.3 106 18 110/49 (69) 95 12/27/19 23:53 99 18 40 12/27/19 23:19 106 12/27/19 23:16 120 119/59 12/27/19 23:13 18 110/82 Mechanical Ventilator 40 12/27/19 23:00 103 18 110/82 (91) 97 12/27/19 22:13 18 114/52 Mechanical Ventilator 40 12/27/19 22:00 66 18 114/52 (72) 95 12/27/19 21:13 18 136/73 Mechanical Ventilator 40 12/27/19 21:02 106 136/73 12/27/19 21:00 80 18 136/73 (94) 98 12/27/19 20:13 18 146/59 Mechanical Ventilator 40 12/27/19 20:00 40 12/27/19 20:00 99.5 78 18 146/59 (88) 98 12/27/19 20:00 Mechanical Ventilator 12/27/19 19:25 71 18 40 12/27/19 19:13 18 130/69 Mechanical Ventilator 40 12/27/19 19:12 81 12/27/19 19:00 77 18 130/69 (89) 98 12/27/19 18:55 75 18 122/57 98 12/27/19 18:55 75 122/67 12/27/19 18:13 18 121/60 Mechanical Ventilator 40 12/27/19 18:00 78 18 121/60 (80) 96 12/27/19 17:22 113 18 115/73 95 12/27/19 17:13 18 115/73 Mechanical Ventilator 40 12/27/19 17:00 96 18 115/73 (87) 94 12/27/19 16:13 18 112/50 Mechanical Ventilator 40 12/27/19 16:00 84 18 112/50 (70) 94 12/27/19 16:00 75 12/27/19 16:00 40 12/27/19 16:00 Mechanical Ventilator 12/27/19 15:59 18 117/54 Mechanical Ventilator 40 12/27/19 15:22 79 18 40 12/27/19 15:00 87 16 125/61 (82) 94 12/27/19 14:13 18 107/47 Mechanical Ventilator 40 12/27/19 14:00 51 18 107/47 (67) 99 12/27/19 13:21 114 114/59 12/27/19 13:13 18 123/63 Mechanical Ventilator 40 12/27/19 13:07 77 12/27/19 13:00 81 18 123/63 (83) 99 12/27/19 12:13 18 109/53 Mechanical Ventilator 40 12/27/19 12:01 99.9 75 18 109/53 (71) 99 12/27/19 12:00 40 12/27/19 12:00 75 18 109/53 (71) 99 12/27/19 12:00 Mechanical Ventilator 12/27/19 12:00 86 Intake and Output 12/27/19 12/28/19 19:00 07:00 Intake Total 1335.47451 ml 1695 ml Output Total 885 ml 1475 ml Balance 450.50734 ml 220 ml Free Water 150 ml 110 ml IV Total 655.60807 ml 1145 ml Tube Feeding 480 ml 440 ml Other 50 ml Output Urine Total 885 ml 1475 ml # Bowel Movements 2 Laboratory Tests 12/27/19 13:19: POC Whole Blood Glucose 144H 12/27/19 17:19: POC Whole Blood Glucose 171H 12/28/19 04:00: White Blood Count 6.9, Red Blood Count 2.73L, Hemoglobin 7.7L, Hematocrit 23.7L, Mean Corpuscular Volume 87, Mean Corpuscular Hemoglobin 28.1, Mean Corpuscular Hemoglobin Concent 32.3, Red Cell Distribution Width 17.1H, Platelet Count 104L, Mean Platelet Volume 7.5, Neutrophils (%) (Auto) , Lymphocytes (%) (Auto) , Monocytes (%) (Auto) , Eosinophils (%) (Auto) , Basophils (%) (Auto) , Differential Total Cells Counted 100, Neutrophils % (Manual) 89H, Lymphocytes % (Manual) 7L, Monocytes % (Manual) 4, Eosinophils % (Manual) 0, Basophils % (Manual) 0, Band Neutrophils 0, Platelet Estimate DecreasedL, Platelet Morphology Normal, Polychromasia 1+, Hypochromasia 1+, Anisocytosis 1+, Sodium Level 147H, Potassium Level 3.5, Chloride Level 107, Carbon Dioxide Level 31, Anion Gap 9, Blood Urea Nitrogen 72H, Creatinine 1.9H, Estimat Glomerular Filtration Rate 26.3, Glucose Level 109H, Calcium Level 7.9L, Total Bilirubin 0.8, Direct Bilirubin 0.4H, Aspartate Amino Transf (AST/SGOT) 19, Alanine Aminotransferase (ALT/SGPT) 17, Alkaline Phosphatase 81, C-Reactive Protein, Quantitative 39.1H, Total Protein 6.7, Albumin 1.7L, Globulin 5.0, Albumin/Globulin Ratio 0.3L 12/28/19 08:12: Arterial Blood pH 7.481H, Arterial Blood Partial Pressure CO2 38.7, Arterial Blood Partial Pressure O2 70.3L, Arterial Blood HCO3 28.2H, Arterial Blood Oxygen Saturation 90.5L, Arterial Blood Base Excess 4.4H, Eugene Test Positive Height (Feet): 5 Height (Inches): 6.00 Weight (Pounds): 298 General Appearance: morbidly obese, other - sedated, vent Cardiovascular: regularly irregular Respiratory/Chest: rhonchi - bilaterally Abdomen: non tender Edema: moderate edema Neurologic: unresponsive Assessment/Plan Problem List: (1) Schizophrenia ICD Codes: F20.9 - Schizophrenia, unspecified SNOMED: 54831619 (2) GERD (gastroesophageal reflux disease) ICD Codes: K21.9 - Gastro-esophageal reflux disease without esophagitis SNOMED: 351176687 (3) Lymphadema (4) Smoker ICD Codes: F17.200 - Nicotine dependence, unspecified, uncomplicated SNOMED: 24064283 (5) Atrial fibrillation with rapid ventricular response ICD Codes: I48.91 - Unspecified atrial fibrillation SNOMED: 283284034455290 (6) CKD (chronic kidney disease) stage 3, GFR 30-59 ml/min ICD Codes: N18.3 - Chronic kidney disease, stage 3 (moderate) SNOMED: 742461823 (7) NATALIE (acute kidney injury) ICD Codes: N17.9 - Acute kidney failure, unspecified SNOMED: 2411458, 17393634 (8) COPD (chronic obstructive pulmonary disease) ICD Codes: J44.9 - Chronic obstructive pulmonary disease, unspecified SNOMED: 96024824 (9) UGI bleed ICD Codes: K92.2 - Gastrointestinal hemorrhage, unspecified SNOMED: 42887417 (10) Dysphagia ICD Codes: R13.10 - Dysphagia, unspecified SNOMED: 31592088, 805810430 (11) UTI (urinary tract infection) ICD Codes: N39.0 - Urinary tract infection, site not specified SNOMED: 60583099 (12) ESBL (extended spectrum beta-lactamase) producing bacteria infection ICD Codes: A49.9 - Bacterial infection, unspecified; Z16.12 - Extended spectrum beta lactamase (ESBL) resistance SNOMED: 726879416 (13) Dehydration ICD Codes: E86.0 - Dehydration SNOMED: 28263998 (14) CHF exacerbation ICD Codes: I50.9 - Heart failure, unspecified SNOMED: 245106432, 79704293371478 (15) Acute respiratory failure ICD Codes: J96.00 - Acute respiratory failure, unspecified whether with hypoxia or hypercapnia SNOMED: 69686572 (16) COVID-19 ICD Codes: U07.1 - COVID-19 SNOMED: 048369733 (17) Pneumonia ICD Codes: J18.9 - Pneumonia, unspecified organism SNOMED: 391682881 Qualifiers: (18) Hematoma of lower leg ICD Codes: S80.10XA - Contusion of unspecified lower leg, initial encounter SNOMED: 932312830 (19) CKD (chronic kidney disease) stage 3, GFR 30-59 ml/min ICD Codes: N18.3 - Chronic kidney disease, stage 3 (moderate) SNOMED: 748352067 Status: stable Assessment/Plan: resp distress, icu, now intubated, worse natalie,,now stable, I/O, ,+hematoma RLE stop eliquis ancd asa, lovenox now iv protonix, rx esbl and + vre uti,g+ cocci linezolid , remains high risk, psychotic and hallucinating d/w psych, ID, cardiology, chf wourse and increase lasix ,covid neg prior now +, grave progn osiss, Hb fell to 6.2, needs transfusion, unable to consent , done , lack of iv access and picc needed, unable to sign,done, likely will be unable to wean for a long time, icu time 35 min Benjamin Dumont MD Dec 28, 2019 12:02
--- NOTE | 2019-12-28 12:04 | NUR ---
RECEIVING TANK OPERATOR NOTE GREER was requested to locate the family. Pt is currently homeless, has hx of multiple admissions at [facility] in the past. Per chart review, pt does not have any family. This SW spoke w/ ella on 12/13/2019 that pt does not have children/family members. Per 12/09/2017 admission record, the copy of MIKE states DNR. Bioethics consult recommended as needed. Addendum: 12/28/19 at 1307 by SRINIVASA BUTTERFIELD GREER spoke w/ Giana from [facility] Medical Records [phone] that pt's status was DNR, which was ordered in January 2018. The patient's last admission at [facility] was in 2019.
--- NOTE | 2019-12-28 12:14 | NUR ---
NURSE NOTES: No significant change in condition.Turned and repositioned for skin management.Will continue same plan of care
--- NOTE | 2019-12-28 12:18 | Cardiology Report ---
APPROVED REPORT EKG Measurement Heart [id number] <Conclusion> Atrial fibrillation with rapid ventricular response Possible Anterior infarct, age undetermined Abnormal ECG
--- NOTE | 2019-12-28 12:44 | General Progress Note ---
Subjective ROS Limited/Unobtainable: No Allergies: Coded Allergies: ERYTHROMYCIN BASE (Verified Allergy, Severe, 12/12/19) HALOPERIDOL (Verified Allergy, Unknown, 12/12/19) VANCOMYCIN (Unverified Adverse Reaction, Intermediate, Shortness of Breath, 12/12/19) Objective Last 24 Hour Vital Signs Date Time Temp Pulse Resp B/P (MAP) Pulse Ox O2 Delivery O2 Flow Rate FiO2 12/28/19 11:37 72 142/62 12/28/19 11:30 67 18 142/62 (88) 100 12/28/19 11:05 75 18 40 12/28/19 11:00 62 18 161/85 (110) 99 12/28/19 11:00 16 145/62 Mechanical Ventilator 50 12/28/19 10:00 58 18 162/72 (102) 100 12/28/19 10:00 18 155/75 Mechanical Ventilator 50 12/28/19 09:00 98.8 96 16 140/53 (82) 100 12/28/19 09:00 18 142/72 Mechanical Ventilator 40 12/28/19 09:00 96 16 140/53 100 12/28/19 08:53 106 145/72 12/28/19 08:46 106 18 142/72 100 12/28/19 08:00 40 12/28/19 08:00 18 96/56 Mechanical Ventilator 40 12/28/19 08:00 Mechanical Ventilator 12/28/19 08:00 66 18 99/47 (64) 100 12/28/19 08:00 64 12/28/19 07:28 70 18 40 12/28/19 07:13 18 135/61 Mechanical Ventilator 40 12/28/19 07:00 59 18 128/64 (85) 100 12/28/19 06:13 18 102/47 Mechanical Ventilator 40 12/28/19 06:00 100.3 67 18 102/46 (64) 99 12/28/19 05:57 100.3 12/28/19 05:13 18 115/50 Mechanical Ventilator 40 12/28/19 05:04 105 124/109 12/28/19 05:00 101.2 106 16 124/109 (114) 92 12/28/19 04:13 18 142/64 Mechanical Ventilator 40 12/28/19 04:12 79 18 131/71 99 12/28/19 04:10 18 142/64 Mechanical Ventilator 40 12/28/19 04:00 Mechanical Ventilator 12/28/19 04:00 99.2 79 18 134/63 (86) 96 12/28/19 04:00 40 12/28/19 03:45 18 131/58 Mechanical Ventilator 40 12/28/19 03:42 75 20 132/60 100 12/28/19 03:15 94 18 40 12/28/19 03:13 20 132/60 Mechanical Ventilator 40 12/28/19 03:11 75 12/28/19 03:00 75 18 115/53 (73) 100 12/28/19 02:13 18 126/56 Mechanical Ventilator 40 12/28/19 02:00 72 20 121/56 (77) 100 12/28/19 01:13 18 139/57 Mechanical Ventilator 40 12/28/19 01:00 105 17 139/57 (84) 99 12/28/19 00:13 18 110/42 Mechanical Ventilator 40 12/28/19 00:00 Mechanical Ventilator 12/28/19 00:00 40 12/28/19 00:00 99.3 106 18 110/49 (69) 95 12/27/19 23:53 99 18 40 12/27/19 23:19 106 12/27/19 23:16 120 119/59 12/27/19 23:13 18 110/82 Mechanical Ventilator 40 12/27/19 23:00 103 18 110/82 (91) 97 12/27/19 22:13 18 114/52 Mechanical Ventilator 40 12/27/19 22:00 66 18 114/52 (72) 95 12/27/19 21:13 18 136/73 Mechanical Ventilator 40 12/27/19 21:02 106 136/73 12/27/19 21:00 80 18 136/73 (94) 98 12/27/19 20:13 18 146/59 Mechanical Ventilator 40 12/27/19 20:00 40 12/27/19 20:00 99.5 78 18 146/59 (88) 98 12/27/19 20:00 Mechanical Ventilator 12/27/19 19:25 71 18 40 12/27/19 19:13 18 130/69 Mechanical Ventilator 40 12/27/19 19:12 81 12/27/19 19:00 77 18 130/69 (89) 98 12/27/19 18:55 75 18 122/57 98 12/27/19 18:55 75 122/67 12/27/19 18:13 18 121/60 Mechanical Ventilator 40 12/27/19 18:00 78 18 121/60 (80) 96 12/27/19 17:22 113 18 115/73 95 12/27/19 17:13 18 115/73 Mechanical Ventilator 40 12/27/19 17:00 96 18 115/73 (87) 94 12/27/19 16:13 18 112/50 Mechanical Ventilator 40 12/27/19 16:00 84 18 112/50 (70) 94 12/27/19 16:00 75 12/27/19 16:00 40 12/27/19 16:00 Mechanical Ventilator 12/27/19 15:59 18 117/54 Mechanical Ventilator 40 12/27/19 15:22 79 18 40 12/27/19 15:00 87 16 125/61 (82) 94 12/27/19 14:13 18 107/47 Mechanical Ventilator 40 12/27/19 14:00 51 18 107/47 (67) 99 12/27/19 13:21 114 114/59 12/27/19 13:13 18 123/63 Mechanical Ventilator 40 12/27/19 13:07 77 12/27/19 13:00 81 18 123/63 (83) 99 Intake and Output0 12/27/19 12/28/19 19:00 07:00 Intake Total 1335.51850 ml 1695 ml Output Total 885 ml 1475 ml Balance 450.08943 ml 220 ml Free Water 150 ml 110 ml IV Total 655.55312 ml 1145 ml Tube Feeding 480 ml 440 ml Other 50 ml Output Urine Total 885 ml 1475 ml # Bowel Movements 2 Laboratory Tests 12/27/19 13:19: POC Whole Blood Glucose 144H 12/27/19 17:19: POC Whole Blood Glucose 171H 12/28/19 04:00: White Blood Count 6.9, Red Blood Count 2.73L, Hemoglobin 7.7L, Hematocrit 23.7L, Mean Corpuscular Volume 87, Mean Corpuscular Hemoglobin 28.1, Mean Corpuscular Hemoglobin Concent 32.3, Red Cell Distribution Width 17.1H, Platelet Count 104L, Mean Platelet Volume 7.5, Neutrophils (%) (Auto) , Lymphocytes (%) (Auto) , Monocytes (%) (Auto) , Eosinophils (%) (Auto) , Basophils (%) (Auto) , Differential Total Cells Counted 100, Neutrophils % (Manual) 89H, Lymphocytes % (Manual) 7L, Monocytes % (Manual) 4, Eosinophils % (Manual) 0, Basophils % (Manu al) 0, Band Neutrophils 0, Platelet Estimate DecreasedL, Platelet Morphology Normal, Polychromasia 1+, Hypochromasia 1+, Anisocytosis 1+, Sodium Level 147H, Potassium Level 3.5, Chloride Level 107, Carbon Dioxide Level 31, Anion Gap 9, Blood Urea Nitrogen 72H, Creatinine 1.9H, Estimat Glomerular Filtration Rate 26.3, Glucose Level 109H, Calcium Level 7.9L, Total Bilirubin 0.8, Direct Bilirubin 0.4H, Aspartate Amino Transf (AST/SGOT) 19, Alanine Aminotransferase (ALT/SGPT) 17, Alkaline Phosphatase 81, C-Reactive Protein, Quantitative 39.1H, Total Protein 6.7, Albumin 1.7L, Globulin 5.0, Albumin/Globulin Ratio 0.3L 12/28/19 08:12: Arterial Blood pH 7.481H, Arterial Blood Partial Pressure CO2 38.7, Arterial Blood Partial Pressure O2 70.3L, Arterial Blood HCO3 28.2H, Arterial Blood Oxygen Saturation 90.5L, Arterial Blood Base Excess 4.4H, Eugene Test Positive Height (Feet): 5 Height (Inches): 6.00 Weight (Pounds): 298 General Appearance: no apparent distress EENT: PERRL/EOMI Neck: supple Cardiovascular: normal rate Respiratory/Chest: decreased breath sounds Abdomen: normal bowel sounds, non tender, soft Extremities: non-tender Assessment/Plan Problem List: (1) CKD (chronic kidney disease) stage 3, GFR 30-59 ml/min ICD Codes: N18.3 - Chronic kidney disease, stage 3 (moderate) SNOMED: 975325427 (2) COPD (chronic obstructive pulmonary disease) ICD Codes: J44.9 - Chronic obstructive pulmonary disease, unspecified SNOMED: 71422536 (3) Smoker ICD Codes: F17.200 - Nicotine dependence, unspecified, uncomplicated SNOMED: 58533626 (4) GERD (gastroesophageal reflux disease) ICD Codes: K21.9 - Gastro-esophageal reflux disease without esophagitis SNOMED: 563267152 (5) Atrial fibrillation with RVR ICD Codes: I48.91 - Unspecified atrial fibrillation SNOMED: 418295367241883 Status: stable Assessment/Plan: ngtf pepcid fu H&H monitor labs bowel regimen fu labs fu cardiology recs icu care Mervin Victoria MD Dec 28, 2019 12:44
--- NOTE | 2019-12-28 13:36 | General Progress Note ---
Progress Note Progress Note Bioethics Consult The patient was evaluated by the Committee at the request of the attending physician Dr. Dumont. She has had multiple [facility] admissions, is homeless and presently intubated due to COVID-19 pneumonia. She has morbid obesity and other poor prognostic indicators. . On the chart is a POLST from November 2017 expressing a wish for DNR and comfort care. Dr. Dumont is concerned that the POLST is too old and with her diaignosis of schizophrenia she may not have been competent to execute the 2018 POLST. Unfortunately she is gravely ill and on a ventilator and unable to confirm or update her wishes. Under these circumstances with her prognosis so poor it is reasonable to make her status DO NOT RESUSCITATE. Discussed with Dr. Dumont by telephone. Maury Betancourt M.D. Committee Chair Maury Nunn MD Dec 28, 2019 13:36
--- NOTE | 2019-12-28 13:48 | Diagnostic Imaging Report ---
Indication: Reason For Exam: SOB Technique: Single AP view of the chest. Comparison: Chest radiograph dated 12/27/2019 Findings: Exam is again noted to be diagnostically limited due to underpenetration, patient rotation, and exclusion of part of the left hemithorax from the [id number]. Within these limitations: No significant change in appearance of visualized cardiomediastinal silhouette. Unchanged layering right pleural effusion with associated basilar airspace opacities. Likely retrocardiac consolidation, unchanged. No apical pneumothoraces. Unchanged enteric and endotracheal tubes. Unchanged left PICC.
[2019-12-28] MEDS: [UNRECOGNIZED DRUG - OTHER] IV SCH ×2 (14:00)
[2019-12-28] MEDS: REMDESIVIR IV SCH ×2 (14:00)
--- NOTE | 2019-12-28 14:11 | NUR ---
NURSE NOTES: Patient turned and repositioned.HOB elevated to prevent aspiration.No significant change of condition.Call light within easy reach
--- NOTE | 2019-12-28 14:14 | NUR ---
CASE MANAGEMENT:REVIEW 12/28/19 SI; NOW COVID + PNA . SEVERE ANEMIA . TACHY. HTN E COLI UTI. COPD. ASP PNA. AFIB W/ PVC UNCONTROLLED HR . BLE EDEMA 101.2 106 16 124/109 92% ON MECHANICAL VENT ET TUBE (12/23/19) FiO2 40 H/H 7.7/23.7 PLT 104 BUN/CREAT 72/1.9 CA+7.9 ALB 1.7 ABG pH 7.481 pO2 70.3 HCO3 28.2 O2 SAT 90.5 IS:IV D5@125ML/HR IV FENTANYL PROTOCOL IV REMDESIVIR 3X9 BAGS IV DECADRON QD IV MICAFUNGIN QD IV MEROPENEM IV POLYMYXIN BID IV LINEZOLID BID IV CARDIZEM Q6HR IV LASIX Q6HR ICU STATUS DCP; FROM [facility]: ISOLATION PRECAUTION STABILIZE RESPIRATORY STATUS FiO2 ADJUSTMENTS MONITOR H/H ~LOW
--- NOTE | 2019-12-28 15:09 | NUR ---
NURSE NOTES: Patient seen by Dr Keen, made aware episode of agitation around the clock with increase BP to 180 during agitation.Order to start patient on Seroquel 25 mg at night and start weaning the patient in the morning at PS 16.Order noted ad carried out
--- NOTE | 2019-12-28 15:31 | NUR ---
NURSE NOTES: Received call back from Dr Keen to paged Dr Ballesteros regarding ordering Seroquel for patient. Message left to her voice mail.Awaiting call back
--- NOTE | 2019-12-28 15:34 | NUR ---
RN UROLOGY NOTE SW received bioethics consult. Dr. Nunn discussed the case w/ Dr. Dumont. Per Dr. Nunn, he believes it would be reasonable for Do Not Resuscitate d/t poor prognosis. Please see Dr. Nunn's note.
--- NOTE | 2019-12-28 16:10 | NUR ---
NURSE NOTES: ADLs done, tuned and repositioned.Kept clean and dry, will continue same care plan.No significant change at this time
--- NOTE | 2019-12-28 17:00 | NUR ---
NURSE NOTES: New Fentanyl bag was removed from the pyxis, scanned and verified by 2nd nurse, Olive COHEN, and handed to primary nurse Olive COHEN.
--- NOTE | 2019-12-28 18:12 | NUR ---
NURSE NOTES: Patient turned and repositioned for skin management.HOB elevated to prevent aspiration.No significant change in condition at this time
--- NOTE | 2019-12-28 19:20 | NUR ---
HAND-OFF: Report given to NOEL Stanley.
[2019-12-28] MEDS ORDERED: Lidocaine 1% 10mg/ml/Epi 0.005mg/ml 30ml vial INJ SCH (19:30)
[2019-12-28] MEDS ORDERED: LORazepam Inj 2mg/ml 1ml IV PRN (19:45)
--- NOTE | 2019-12-28 20:00 | NUR ---
NURSE NOTES: Patient received from Joanie COHEN. Patient is currently orally intubated and sedated with an achieved RASS score of -2. The patient is able to open and close eyes to verbal and tactile stimulus for about 5-7seconds. Patient is orally intubated ETT7.5, 24cm at the lower lip. Vent settings are AC 18, 600Tv, 40% Fio2 and peep of 5. Patient is making appropriated tidal volumes, Spo2 is 100% RR is 20. Ventilator and airway visual safety check performed. Patient has a an NGT with Nepro infusing at 40ml/hr. There is a Lockett catheter noted that is hanging below the waist line and draining yellow colored urine with light sediments. MARBELLA PICC line newly inserted 12/25; with a clean, dry and intact dressing, bio patch visualized and present. Skin alterations noted. p200 mattress noted. Bilateral soft wrist restraints noted, pulses present equal and bilaterally. Safety measures checked. Patients in afib rhythm 60-75, blood pressure within normotensive ranges.
[2019-12-28] MEDS ORDERED: NS 275ml ONE (20:03)
[2019-12-28] MEDS ORDERED: Tubing IV Secondary IV ONE (20:03)
[2019-12-28] MEDS: Miralax 17gm pkt NG SCH (20:34)
[2019-12-28] MEDS: Dyna-Hex 2% Top Sol 2oz TOPIC SCH (20:34)
--- NOTE | 2019-12-28 22:00 | NUR ---
NURSE NOTES: Patient assessment performed; all due meds given. H20 flush given via NGT. Temperature noted to 97.5F. Repositioned and oral care performed. Vitals remains stable. No rhythm changed noticed. Patient making good urine output. Patients HR ranging 40s-60s. Afib rhythm. Will continue to monitor .
--- NOTE | 2019-12-28 23:28 | Psych Consult Progress Note ---
Psychiatry Progress Note Psychiatry Progress Note Subjective the pt is agitated and on bilat restraints. Medications Current Medications Medications (Trade) Dose Ordered Sig/Shiraz Route PRN Reason Start Time Stop Time Status Last Admin Dose Admin Acetaminophen (Tylenol) 650 mg Q4H PRN NG Temp >100.5 12/22/19 16:00 01/11/20 22:14 12/23/19 13:53 Acetaminophen (Tylenol) 650 mg Q4H PRN NG Mild Pain (Pain Scale 1-3) 12/22/19 16:00 01/11/20 22:14 12/28/19 05:27 Albuterol Sulfate (Proventil MDI) 2 puff Q4H PRN INH Shortness of Breath 12/24/19 10:30 03/23/20 10:29 Bacitracin (Bacitracin 15gm tube) 1 applic BID TOPIC 12/22/19 18:00 03/12/20 08:59 12/28/19 17:02 Chlorhexidine Gluconate (Jessie-Hex 2%) 1 applic DAILY@1999 TOPIC 12/24/19 20:00 03/23/20 19:59 12/28/19 20:34 Clotrimazole (Lotrimin) 1 applic TWICE A DAY TOPIC 12/22/19 18:00 03/12/20 08:59 12/28/19 17:01 Dexamethasone Sodium Phosphate (Decadron 10mg/ ml Inj) 6 mg DAILY IV 12/24/19 09:00 01/03/20 08:59 12/28/19 08:54 Dextrose (Dextrose 50%) 25 ml Q30M PRN IV Hypoglycemia 12/23/19 10:45 03/22/20 10:44 Dextrose (Dextrose 50%) 50 ml Q30M PRN IV Hypoglycemia 12/23/19 10:45 03/22/20 10:44 Diltiazem HCl (Cardizem Tab) 90 mg Q6HR NG 12/22/19 18:00 01/13/20 11:59 12/28/19 17:13 Docusate Sodium (Colace) 100 mg BID NG 12/25/19 09:00 01/24/20 08:59 12/28/19 17:12 Enoxaparin Sodium (Lovenox) 60 mg DAILY SUBQ 12/23/19 09:00 03/22/20 08:59 12/28/19 08:50 Famotidine (Pepcid I.v.) 20 mg Q12HR IVP 12/25/19 09:00 01/24/20 08:59 12/28/19 20:34 Fentanyl Citrate 250 ml @ 0 mls/hr Q24H IV 12/27/19 15:30 12/29/19 16:00 12/28/19 16:59 Furosemide (Lasix) 40 mg Q6HR IV 12/25/19 12:00 01/24/20 11:59 12/28/19 17:12 Insulin Aspart (NovoLOG) BEFORE MEALS AND HS SUBQ 12/23/19 11:30 03/22/20 11:29 12/28/19 16:30 Linezolid 300 ml @ 300 mls/hr Q12HR IVPB 12/27/19 21:00 12/31/19 20:59 12/28/19 20:34 Lorazepam (Ativan 2mg/ml 1ml) 2 mg Q1H PRN IV Agitation 12/28/19 19:45 01/04/20 19:44 12/28/19 20:34 Magnesium Hydroxide (Mom) 30 ml HSPRN PRN NG Constipation 12/22/19 15:15 01/21/20 15:14 Meropenem 500 mg/ Sodium Chloride 55 ml @ 110 mls/hr Q12H IVPB 12/26/19 16:00 12/31/19 15:59 12/28/19 16:00 Metoprolol Tartrate (Lopressor) 50 mg Q12HR NG 12/22/19 21:00 03/18/20 20:59 12/28/19 08:53 Micafungin Sodium 100 mg/Sodium Chloride 110 ml @ 110 mls/hr Q24H IVPB 12/27/19 09:00 01/01/20 08:59 12/28/19 08:52 Miscellaneous Medication (Remdesivir Fact Sheet) 1 ea ONCE PRN MISC Pt currently sedated 12/24/19 10:30 01/03/20 10:29 Nitroglycerin (Ntg) 0.4 mg Q5M PRN SL Prn Chest Pain 12/22/19 15:00 01/11/20 22:14 Ondansetron HCl (Zofran) 4 mg Q6H PRN IVP Nausea & Vomiting 12/22/19 15:15 01/11/20 15:14 Polyethylene Glycol (Miralax) 17 gm BEDTIME NG 12/22/19 21:00 01/18/20 20:59 12/28/19 20:34 Polymyxin B Sulfate 395375 units/Dextrose 550 ml @ 550 mls/hr EVERY 12 HOURS IV 12/23/19 13:00 12/30/19 12:59 12/28/19 20:34 Quetiapine Fumarate (SEROqueL) 50 mg EVERY 8 HOURS ORAL 12/28/19 22:00 02/11/20 17:59 12/28/19 22:33 Remdesivir 100 mg/ Sodium Chloride 250 ml @ 250 mls/hr Q24H IV 12/25/19 14:00 01/02/20 14:59 12/28/19 14:00 Neurological/Psychiatric: Reports: anxiety, depressed, emotional problems Allergies: Coded Allergies: ERYTHROMYCIN BASE (Verified Allergy, Severe, 12/12/19) HALOPERIDOL (Verified Allergy, Unknown, 12/12/19) VANCOMYCIN (Unverified Adverse Reaction, Intermediate, Shortness of Breath, 12/12/19) Objective Data Height (Feet): 5 Height (Inches): 6.00 Weight (Pounds): 298 General Appearance: no apparent distress Additional Comments: confused. Mood is anxious. Affect is flat. Assessment/Plan [place] I: haldol im prn morphine low dose 1mg q 6 prn Status: stable Status Narrative haldol im prn morphine low dose 1mg q 6 prn Assessment/Plan: haldol im prn morphine low dose 1mg q 6 prn seroquel Harris Barber MD Dec 28, 2019 23:28
[2019-12-28] MEDS ORDERED: FLUPHENAZINE DECANOATE 25 MG/ML IM PRN (23:30)
[2019-12-29] VITALS (25 sets, daily range): BP systolic 114–179; BP diastolic 57–138
--- NOTE | 2019-12-29 | NUR ---
NURSE NOTES: Patient suctioned and repositioned. Patient remains at RASS score of -2. Oral care performed, vitals remain stable. Afib/Aflutter rhythm. Range of motion provided. Opens eyes to verbal stimulus for about 5-7 seconds. Patient making good urine output. Yellow in color with sediments. Afebrile. Midnight meds given.
--- NOTE | 2019-12-29 03:17 | Cardiology Progress Note ---
Subjective DATE OF SERVICE: Dec 28, 2019 Doing poorly - remains in ICU in critical condition with guarded prognosis. BP range has stabilized Remains COVID19 positive. Monitor: AFIb Persisting respiratory acidosis req'd intubation and mech ventilation Had coffee ground material in NGTube and hematoma on right leg; anti-coagulation discont'd Venous Duplex: negative for DVT Renal fxn and free water deficit still impaired Objective Last 24 Hour Vital Signs Date Time Temp Pulse Resp B/P (MAP) Pulse Ox O2 Delivery O2 Flow Rate FiO2 12/29/19 01:00 68 18 120/63 (82) 99 12/29/19 01:00 18 120/63 Mechanical Ventilator 40 12/29/19 00:06 94 12/29/19 00:00 40 12/29/19 00:00 18 126/69 Mechanical Ventilator 40 12/29/19 00:00 Mechanical Ventilator 12/29/19 00:00 98.0 69 17 126/69 (88) 99 12/28/19 23:52 191/83 12/28/19 23:00 18 112/62 Mechanical Ventilator 40 12/28/19 23:00 80 18 112/62 (79) 97 12/28/19 22:25 55 18 40 12/28/19 22:00 20 121/75 (90) 99 12/28/19 22:00 18 121/75 Mechanical Ventilator 40 12/28/19 21:04 60 18 147/76 100 12/28/19 21:00 59 17 147/76 (99) 99 12/28/19 21:00 18 147/76 Mechanical Ventilator 40 12/28/19 20:35 60 126/56 12/28/19 20:34 60 18 126/56 100 12/28/19 20:02 44 12/28/19 20:00 96.6 51 17 134/57 (82) 98 12/28/19 20:00 40 12/28/19 20:00 Mechanical Ventilator 12/28/19 20:00 18 134/57 Mechanical Ventilator 40 12/28/19 19:26 58 18 40 12/28/19 19:00 50 18 106/51 (69) 98 12/28/19 19:00 17 140/78 Mechanical Ventilator 100 12/28/19 18:00 72 18 152/70 (97) 98 12/28/19 18:00 17 120/74 Mechanical Ventilator 100 12/28/19 17:13 92 140/68 12/28/19 17:00 76 16 140/68 (92) 100 12/28/19 16:59 16 140/83 Mechanical Ventilator 40.0 50 12/28/19 16:00 73 12/28/19 16:00 40 12/28/19 16:00 Mechanical Ventilator 12/28/19 16:00 97.8 73 17 120/74 (89) 92 12/28/19 15:43 97 19 40 12/28/19 15:00 94 18 173/56 (95) 99 12/28/19 15:00 18 141/68 Mechanical Ventilator 100 12/28/19 14:00 61 18 180/84 (116) 99 12/28/19 14:00 16 140/83 Mechanical Ventilator 50 12/28/19 13:00 57 18 173/78 (109) 99 12/28/19 13:00 60 173/78 Mechanical Ventilator 50 12/28/19 12:00 97.6 60 18 169/84 (112) 100 12/28/19 12:00 60 12/28/19 12:00 Mechanical Ventilator 12/28/19 12:00 50 12/28/19 11:37 72 142/62 12/28/19 11:30 67 18 142/62 (88) 100 12/28/19 11:05 75 18 40 12/28/19 11:00 62 18 161/85 (110) 99 12/28/19 11:00 16 145/62 Mechanical Ventilator 50 12/28/19 10:00 58 18 162/72 (102) 100 12/28/19 10:00 18 155/75 Mechanical Ventilator 50 12/28/19 09:00 98.8 96 16 140/53 (82) 100 12/28/19 09:00 18 142/72 Mechanical Ventilator 40 12/28/19 09:00 96 16 140/53 100 12/28/19 08:53 106 145/72 12/28/19 08:46 106 18 142/72 100 12/28/19 08:00 40 12/28/19 08:00 18 96/56 Mechanical Ventilator 40 12/28/19 08:00 Mechanical Ventilator 12/28/19 08:00 66 18 99/47 (64) 100 12/28/19 08:00 64 12/28/19 07:28 70 18 40 12/28/19 07:13 18 135/61 Mechanical Ventilator 40 12/28/19 07:00 59 18 128/64 (85) 100 12/28/19 06:13 18 102/47 Mechanical Ventilator 40 12/28/19 06:00 100.3 67 18 102/46 (64) 99 12/28/19 05:57 100.3 12/28/19 05:13 18 115/50 Mechanical Ventilator 40 12/28/19 05:04 105 124/109 12/28/19 05:00 101.2 106 16 124/109 (114) 92 12/28/19 04:13 18 142/64 Mechanical Ventilator 40 12/28/19 04:12 79 18 131/71 99 12/28/19 04:10 18 142/64 Mechanical Ventilator 40 12/28/19 04:00 Mechanical Ventilator 12/28/19 04:00 99.2 79 18 134/63 (86) 96 12/28/19 04:00 40 12/28/19 03:45 18 131/58 Mechanical Ventilator 40 12/28/19 03:42 75 20 132/60 100 ROS: unchanged from 12/12/19 HEENT: Orally intubated, Mechanically Ventilated, Thin secretions ET Tube, other - NGtube RHYTHM: NSR, ST LUNGS: diminished breath sounds, right-sided rhonchi CARDIAC: normal S1 and S2, irregularly irregular ABDOMEN: other - obese EXTREMITIES: moderate edema - mostly non pitting, other - hematoma right leg Laboratory Tests Test 12/28/19 04:00 12/28/19 08:12 12/28/19 20:33 White Blood Count 6.9 K/UL (4.8-10.8) Red Blood Count 2.73 M/UL (4.20-5.40) L Hemoglobin 7.7 G/DL (12.0-16.0) L Hematocrit 23.7 % (37.0-47.0) L Mean Corpuscular Volume 87 FL (80-99) Mean Corpuscular Hemoglobin 28.1 PG (27.0-31.0) Mean Corpuscular Hemoglobin Concent 32.3 G/DL (32.0-36.0) Red Cell Distribution Width 17.1 % (11.6-14.8) H Platelet Count 104 K/UL (150-450) L Mean Platelet Volume 7.5 FL (6.5-10.1) Neutrophils (%) (Auto) % (45.0-75.0) Lymphocytes (%) (Auto) % (20.0-45.0) Monocytes (%) (Auto) % (1.0-10.0) Eosinophils (%) (Auto) % (0.0-3.0) Basophils (%) (Auto) % (0.0-2.0) Differential Total Cells Counted 100 Neutrophils % (Manual) 89 % (45-75) H Lymphocytes % (Manual) 7 % (20-45) L Monocytes % (Manual) 4 % (1-10) Eosinophils % (Manual) 0 % (0-3) Basophils % (Manual) 0 % (0-2) Band Neutrophils 0 % (0-8) Platelet Estimate Decreased L Platelet Morphology Normal Polychromasia 1+ Hypochromasia 1+ Anisocytosis 1+ Sodium Level 147 MMOL/L (136-145) H Potassium Level 3.5 MMOL/L (3.5-5.1) Chloride Level 107 MMOL/L (98-107) Carbon Dioxide Level 31 MMOL/L (21-32) Anion Gap 9 mmol/L (5-15) Blood Urea Nitrogen 72 mg/dL (7-18) H Creatinine 1.9 MG/DL (0.55-1.30) H Estimat Glomerular Filtration Rate 26.3 mL/min (>60) Glucose Level 109 MG/DL (74-106) H Calcium Level 7.9 MG/DL (8.5-10.1) L Total Bilirubin 0.8 MG/DL (0.2-1.0) Direct Bilirubin 0.4 MG/DL (0.0-0.3) H Aspartate Amino Transf (AST/SGOT) 19 U/L (15-37) Alanine Aminotransferase (ALT/SGPT) 17 U/L (12-78) Alkaline Phosphatase 81 U/L (46-116) C-Reactive Protein, Quantitative 39.1 mg/dL (0.00-0.90) H Total Protein 6.7 G/DL (6.4-8.2) Albumin 1.7 G/DL (3.4-5.0) L Globulin 5.0 g/dL Albumin/Globulin Ratio 0.3 (1.0-2.7) L Arterial Blood pH 7.481 (7.350-7.450) Arterial Blood Partial Pressure CO2 38.7 mmHg (35.0-45.0) Arterial Blood Partial Pressure O2 70.3 mmHg (75.0-100.0) L Arterial Blood HCO3 28.2 mmol/L (22.0-26.0) H Arterial Blood Oxygen Saturation 90.5 % (95-100) L Arterial Blood Base Excess 4.4 (-2-2) H [place] Test Positive POC Whole Blood Glucose Pending Assessment/Plan Assessment/Plan CRITICAL AND GUARDED Acute respiratory failure Acute on chronic respiratory acidosis AFiB with RVR improved CHF, ac/chr diast - compensated BLE edema Sepsis with shock obesity COPD with bronchospasm Acute renal failure - worsening Pleural effusion GI bleeding Acute diastolic CHF Covid 19 PNA Vent support Monitor acid/base parameters. Antimicrobials Titrate rate-control meds - hold digitalis for elevated levels. Maintain diltiazem and metoprolol. DC apixaban - hold anticoagulation due to GI bleeding. Hypotonic IVF until po intake improves and free water deficit corrected. Continued cardiac technologist Diuresis based on clinical parameters; trend BNP May need trach Consider therapeutic thorocentesis Agree with consideration for DNR Jerome Meek MD Dec 29, 2019 03:17
[2019-12-29] MEDS: Meropenem 500 MG in NS 55 ML IVPB SCH ×2 (04:00→17:41)
[2019-12-29] MEDS: dilTIAZem HCl 90mg tab NG SCH ×4 (05:15→22:54)
[2019-12-29] MEDS: NovoLOG Insulin Flexpen SUBQ SCH ×4 (05:16→21:00)
[2019-12-29 05:39] LABS: HEMATOCRIT 27.3 % (37.0-47.0); HEMOGLOBIN 8.7 G/DL (12.0-16.0); MEAN CORPUSCULAR VOLUME 87 FL (80-99); PLATELET COUNT 127 K/UL (150-450); RED BLOOD COUNT 3.12 M/UL (4.20-5.40); RED CELL DISTRIBUTION WIDTH 17.9 % (11.6-14.8); WHITE BLOOD COUNT 7.9 K/UL (4.8-10.8)
[2019-12-29] MEDS: fentaNYL 2500mcg/NS 250ml 250 ML IV SCH ×2 (05:56→16:00)
--- NOTE | 2019-12-29 06:00 | NUR ---
NURSE NOTES: AM meds were given. Glucose noted to be within range, no coverage required per sliding scale. Suctioned and repositioned patient. Patient remains in afib-aflutter rhythm. Blood pressures have remained stable. NAD at this time. Maintaining RASS of -2. Will continue to monitor.
--- NOTE | 2019-12-29 06:00 | NUR ---
NURSE NOTES: Patient given reality reorientation. Vitals is stable, afebrile, no respiratory distress. NSR, pulses present and equal. Patient still continues to be slightly anxious. Will continue to monitor. Addendum: 12/29/19 at 0652 by KASIA MORTON RN NURSE NOTES: Disregard noted, wrong patient entry.
[2019-12-29 06:19] LABS: ALBUMIN/GLOBULIN RATIO 0.4 (1.0-2.7); BILIRUBIN,DIRECT 0.5 MG/DL (0.0-0.3); CALCIUM 8.4 MG/DL (8.5-10.1); CREATININE 1.8 MG/DL (0.55-1.30); POTASSIUM 3.3 MMOL/L (3.5-5.1)
--- NOTE | 2019-12-29 08:28 | Pulmonolgy Critical Care Note ---
AndrésLuz [employer] 12/29/19 0828: Critical Care - Asmt/Plan Assessment/Plan: ASSESSMENT acute hypoxemic hypercapnic resp failure, requiring intubation 12/22 COVID 19 PNA sepsis fungemia UTI with E coli ESBL UTI VRE possible aspiration PNA COPD Bronchospasm Atrial fibrillation with rapid ventricular response Congestive heart failure Acute renal failure on CKD Severe anemia Probable GI bleeding Thrombocytopenia Status post ground fall Tobacco dependency Morbid obesity probably GARY Homeless R knee edema and hematoma, likely sprain /strain post fall PLAN OF CARE ICU intubated 12/22 ABG better with AC 18, titrate Fio2 to keep sat above 90% ABG this am pending CXR 12/27 no significant changes fup with CXR and ABG MDI Albuterol in line with vent will evaluated for thoracentesis when more stable start weaning trials this am with high PS settings to start, goal MV 10 lpm steroids IV ( started 12/23) and Remdesivir (started 12/24 ) sedation with Fentanyl gtt and Ativan prn DVT prophylaxis with Lovenox prior Venous Duplex BLE -NGT COVID 19 by PCR 12/22 positive isolation [place] 6 52 , initial CRP 15.6, ferritin 769, fup with inflammatory markers CRP 12/27 -39.1 ; ferritin down to 629 on diuresis with Lasix , monitor volumes closely creat remains stable rate control- per cardio recs: monitor volumes pro BNP trending down ECHO with pEF no evidence of WMA GI prophylaxis with PPI s/p Venofer x 2 s/p blood transfusion 12/25 monitor HH with goal to keep Hgb >7 GI procedure when stable monitor PLT counts renal US no hydro, BL nonobstructive stones s/p IV hydration, now resumed again per nephro monitor renal parameters, lytes , e/lyte management as per nephro recs UCX 12/11 + E coli ESBL, BCX 12/16 1/2 + yeast, fup with yeast ID, ? source BCX 12/17 NGTD BCX 12/22 and 12/24 NGTD UCX 12/16 VRE SCX 12/19 MRSA, ACB MDR now on meropenem , micafungin , Polymyxin and Zyvox -as per ID recs , cooling blanket prn fevers prior X ray R knee given fall 12/15 , large hematoma, swelling-no fx or dislocation ice R knee and elevate CT head no acute IC pathology fall precautions prior declined Nicotine patch discussion on weight loss if receptive - not at this time; anxious and wants to go home pain management anxiolytic prn SW consult for placement evaluated by bioethics -> DNR/DNI status appropriate case discussed and evaluated by supervising physician ivy mccarty for a co nsult! Critical Care - Objective Last 24 Hour Vital Signs Date Time Temp Pulse Resp B/P (MAP) Pulse Ox O2 Delivery O2 Flow Rate FiO2 12/29/19 07:53 121 21 100 Mechanical Ventilator 40 12/29/19 07:52 115 22 40 12/29/19 07:00 26 153/79 Mechanical Ventilator 40 12/29/19 07:00 99.1 66 19 132/110 (117) 100 12/29/19 06:00 18 124/57 Mechanical Ventilator 40 12/29/19 06:00 64 16 124/57 (79) 96 12/29/19 05:56 18 137/70 Mechanical Ventilator 40 12/29/19 05:15 73 140/82 12/29/19 05:00 99 22 157/102 (120) 95 12/29/19 05:00 18 136/59 Mechanical Ventilator 40 12/29/19 04:30 73 17 140/82 (101) 99 12/29/19 04:00 40 12/29/19 04:00 18 136/71 Mechanical Ventilator 40 12/29/19 04:00 Mechanical Ventilator 12/29/19 04:00 98.9 79 18 136/71 (92) 99 12/29/19 03:18 122 20 40 12/29/19 03:18 50 12/29/19 03:00 18 152/84 Mechanical Ventilator 40 12/29/19 03:00 111 17 152/84 (106) 97 12/29/19 02:00 18 147/75 Mechanical Ventilator 40 12/29/19 02:00 61 18 147/75 (99) 99 12/29/19 01:00 68 18 120/63 (82) 99 12/29/19 01:00 18 120/63 Mechanical Ventilator 40 12/29/19 00:06 94 12/29/19 00:00 40 12/29/19 00:00 18 126/69 Mechanical Ventilator 40 12/29/19 00:00 Mechanical Ventilator 12/29/19 00:00 98.0 69 17 126/69 (88) 99 9/18/20 23:52 191/83 20 23:00 18 112/62 Mechanical Ventilator 40 12/28/19 23:00 80 18 112/62 (79) 97 20 22:25 55 18 40 20 22:00 20 121/75 (90) 99 20 22:00 18 121/75 Mechanical Ventilator 40 12/28/19 21:04 60 18 147/76 100 20 21:00 59 17 147/76 (99) 99 20 21:00 18 147/76 Mechanical Ventilator 40 12/28/19 20:35 60 126/56 1820 20:34 60 18 126/56 100 12/28/19 20:02 44 12/28/19 20:00 96.6 51 17 134/57 (82) 98 12/28/19 20:00 40 12/28/19 20:00 Mechanical Ventilator 12/28/19 20:00 18 134/57 Mechanical Ventilator 40 12/28/19 19:26 58 18 40 12/28/19 19:00 50 18 106/51 (69) 98 12/28/19 19:00 17 140/78 Mechanical Ventilator 100 12/28/19 18:00 72 18 152/70 (97) 98 12/28/19 18:00 17 120/74 Mechanical Ventilator 100 12/28/19 17:13 92 140/68 12/28/19 17:00 76 16 140/68 (92) 100 12/28/19 16:59 16 140/83 Mechanical Ventilator 40.0 50 12/28/19 16:00 73 12/28/19 16:00 40 12/28/19 16:00 Mechanical Ventilator 12/28/19 16:00 97.8 73 17 120/74 (89) 92 12/28/19 15:43 97 19 40 12/28/19 15:00 94 18 173/56 (95) 99 12/28/19 15:00 18 141/68 Mechanical Ventilator 100 12/28/19 14:00 61 18 180/84 (116) 99 12/28/19 14:00 16 140/83 Mechanical Ventilator 50 12/28/19 13:00 57 18 173/78 (109) 99 12/28/19 13:00 60 173/78 Mechanical Ventilator 50 12/28/19 12:00 97.6 60 18 169/84 (112) 100 12/28/19 12:00 60 12/28/19 12:00 Mechanical Ventilator 12/28/19 12:00 50 12/28/19 11:37 72 142/62 12/28/19 11:30 67 18 142/62 (88) 100 12/28/19 11:05 75 18 40 12/28/19 11:00 62 18 161/85 (110) 99 12/28/19 11:00 16 145/62 Mechanical Ventilator 50 12/28/19 10:00 58 18 162/72 (102) 100 12/28/19 10:00 18 155/75 Mechanical Ventilator 50 12/28/19 09:00 98.8 96 16 140/53 (82) 100 12/28/19 09:00 18 142/72 Mechanical Ventilator 40 12/28/19 09:00 96 16 140/53 100 12/28/19 08:53 106 145/72 12/28/19 08:46 106 18 142/72 100 Objective: General Appearance: morbidly obese , sedated, on vent AC 600-18-40% PEEP 5 Lines, tubes and drains: peripheral HEENT: normocephalic, atraumatic, anicteric, NGT in , OP with ET Neck: non-tender Respiratory/Chest: chest wall non-tender, no accessory muscle use, decreased breath sounds; Cardiovascular/Chest: irregularly irregular - A fib , tachy at times , distant heart sounds, LUE PICC in place , intact Abdomen: normal bowel sounds, non tender , obese, soft : Lockett Extremities: no calf tenderness, moderate edema - +3 BLE, R knee with large hematoma, edema, Skin Exam: warm/dry, multiple tattoos Neurologic: sedated Musculoskeletal: normal muscle bulk Accucheck: 106 Critical Care - Subjective ROS Limited/Unobtainable: Yes Interval Events: no fevers for 24 hrs still on the same AC settings ABG this am pending weaning trials with high PS to be started this am CXR 12/27 no change evaluated by bioethics -> DNR/DNI status appropriate Condition: critical IV Access: PICC - LUE intact EKG Rhythm: Atrial Fibrillation - with tachy FI02: 40 Vent Support Breath Rate: 18 Vent Support Mode: AC Vent Tidal Volume: 600 Sputum Amount: Moderate PEEP: 5.0 PIP: 63 Drips: Fentanyl gtt 200 mcg/hr Tube Feeding Amount: 40 I&O: Intake and Output 12/28/19 12/29/19 19:00 07:00 Intake Total 2045 ml 1756.333 ml Output Total 2600 ml 1435 ml Balance -555 ml 321.333 ml Free Water 100 ml 150 ml IV Total 1465 ml 1126.333 ml Tube Feeding 480 ml 480 ml Output Urine Total 2600 ml 1435 ml CXR: 12/27 Unchanged layering right pleural effusion with associated basilar airspace opacities. Likely retrocardiac consolidation, unchanged. No apical pneumothoraces. Unchanged enteric and endotracheal tubes. Unchanged left PICC. ET-Tube: 7.5 ET Position: 24 Colt Keen MD 12/29/19 2203: Critical Care - Asmt/Plan Assessment/Plan: Patient seen and examined with [employer] and I agree with the above formulated assessment and plan. Apparently hospitalized and diagnosed with COVID at [facility], date of positive test was 11/29 and was not treated with Remdesivir. Cont course of Remdesivir, stop tomorrow. Time Spent (Minutes): 40 - cc Luz Bowen NP Dec 29, 2019 08:28 Colt Keen MD Dec 29, 2019 22:03
--- NOTE | 2019-12-29 08:30 | NUR ---
NURSE NOTES: Report received from NOEL Stanley. Seen by Dr Clarke, made aware GI bleed.Will follow up with new order.Patient remains on cooling blanket and noted with T99.1. Remains Afib on the monitor with no symptoms of chest pain.Orally intubated ETT 7.5/24 AC 18, VT 600 FiO2 40% Peep 5.Mouth care done and suctioned as tolerated.Patient repositioned with pillow support.Patient has a MARBELLA PICC running TKO and Fentanyl at 200mcg/hr.Patient on P200 mattress for skin management. LLE hematoma with sanguinous drainage.Lockett catheter in place draining yellow straw urine with no apparent sediments. GT feeding Nepro @40cc/hr with no residual at this time.GT placement intact and flushed as tolerated.HOB elevated to prevent aspiration.Mouth care done and suctioned as tolerated.Bilateral non behavioral restraints release during care.No skin impairment noted.Call light within easy reach.Will continue close monitoring Addendum: 12/29/19 at 1438 by Joanie Wetzel RN Report received from NOEL Stanley. Patient remains on cooling blanket and noted with T99.1. Remains Afib on the monitor with no symptoms of chest pain.Orally intubated ETT 7.5/24 AC 18, VT 600 FiO2 40% Peep 5.Mouth care done and suctioned as tolerated.Patient repositioned with pillow support.Patient has a MARBELLA PICC running TKO and Fentanyl at 200mcg/hr.Patient on P200 mattress for skin management. LLE hematoma with sanguinous drainage.Lockett catheter in place draining yellow straw urine with no apparent sediments. GT feeding Nepro @40cc/hr with no residual at this time.GT placement intact and flushed as tolerated.HOB elevated to prevent aspiration.Mouth care done and suctioned as tolerated.Bilateral non behavioral restraints release during care.No skin impairment noted.Call light within easy reach.Will continue close monitoring
--- NOTE | 2019-12-29 08:31 | NUR ---
NURSE NOTES: Report received from NOEL Stanley.Patient remains on cooling blanket and noted with T99.1. Remains Afib on the monitor with no symptoms of chest pain.Orally intubated ETT 7.09/01 AC 18, VT 600 FiO2 40% Peep 5.Mouth care done and suctioned as tolerated.Patient repositioned with pillow support.Patient has a MARBELLA PICC running TKO and Fentanyl at 200mcg/hr.Patient on P200 mattress for skin management. LLE hematoma with sanguinous drainage.Lockett catheter in place draining yellow straw urine with no apparent sediments. GT feeding Nepro @40cc/hr with no residual at this time.GT placement intact and flushed as tolerated.HOB elevated to prevent aspiration.Mouth care done and suctioned as tolerated.Bilateral non behavioral restraints release during care.No skin impairment noted.Call light within easy reach.Will continue close monitoring
[2019-12-29] MEDS: Docusate 100mg/10ml Liq NG SCH ×2 (08:47→17:39)
[2019-12-29] MEDS: Polymyxin B Sulfate 500,000 units in D5W 550ml IV SCH (08:47)
[2019-12-29] MEDS: dexAMETHasone 10mg/ml Inj IV SCH (08:48)
[2019-12-29] MEDS: Metoprolol Tartrate 50mg tab NG SCH ×2 (08:49→20:49)
[2019-12-29] MEDS: Enoxaparin 60mg Inj SUBQ SCH (08:50)
[2019-12-29] MEDS: Bacitracin Oint 15gm Tube TOPIC SCH ×2 (08:59→17:41)
--- NOTE | 2019-12-29 10:04 | General Progress Note ---
Subjective ROS Limited/Unobtainable: No Allergies: Coded Allergies: ERYTHROMYCIN BASE (Verified Allergy, Severe, 12/12/19) HALOPERIDOL (Verified Allergy, Unknown, 12/12/19) VANCOMYCIN (Unverified Adverse Reaction, Intermediate, Shortness of Breath, 12/12/19) Objective Last 24 Hour Vital Signs Date Time Temp Pulse Resp B/P (MAP) Pulse Ox O2 Delivery O2 Flow Rate FiO2 12/29/19 08:49 109 150/91 12/29/19 07:53 121 21 100 Mechanical Ventilator 40 12/29/19 07:52 115 22 40 12/29/19 07:00 26 153/79 Mechanical Ventilator 40 12/29/19 07:00 99.1 66 19 132/110 (117) 100 12/29/19 06:00 18 124/57 Mechanical Ventilator 40 12/29/19 06:00 64 16 124/57 (79) 96 12/29/19 05:56 18 137/70 Mechanical Ventilator 40 12/29/19 05:15 73 140/82 12/29/19 05:00 99 22 157/102 (120) 95 12/29/19 05:00 18 136/59 Mechanical Ventilator 40 12/29/19 04:30 73 17 140/82 (101) 99 12/29/19 04:00 40 12/29/19 04:00 18 136/71 Mechanical Ventilator 40 12/29/19 04:00 Mechanical Ventilator 12/29/19 04:00 98.9 79 18 136/71 (92) 99 12/29/19 03:18 122 20 40 12/29/19 03:18 50 12/29/19 03:00 18 152/84 Mechanical Ventilator 40 12/29/19 03:00 111 17 152/84 (106) 97 12/29/19 02:00 18 147/75 Mechanical Ventilator 40 12/29/19 02:00 61 18 147/75 (99) 99 12/29/19 01:00 68 18 120/63 (82) 99 12/29/19 01:00 18 120/63 Mechanical Ventilator 40 12/29/19 00:06 94 12/29/19 00:00 40 12/29/19 00:00 18 126/69 Mechanical Ventilator 40 12/29/19 00:00 Mechanical Ventilator 12/29/19 00:00 98.0 69 17 126/69 (88) 99 9/18/20 23:52 191/83 12/28/19 23:00 18 112/62 Mechanical Ventilator 40 12/28/19 23:00 80 18 112/62 (79) 97 12/28/19 22:25 55 18 40 20 22:00 20 121/75 (90) 99 20 22:00 18 121/75 Mechanical Ventilator 40 12/28/19 21:04 60 18 147/76 100 12/28/19 21:00 59 17 147/76 (99) 99 12/28/19 21:00 18 147/76 Mechanical Ventilator 40 12/28/19 20:35 60 126/56 18 20:34 60 18 126/56 100 12/28/19 20:02 44 12/28/19 20:00 96.6 51 17 134/57 (82) 98 12/28/19 20:00 40 12/28/19 20:00 Mechanical Ventilator 12/28/19 20:00 18 134/57 Mechanical Ventilator 40 12/28/19 19:26 58 18 40 12/28/19 19:00 50 18 106/51 (69) 98 12/28/19 19:00 17 140/78 Mechanical Ventilator 100 12/28/19 18:00 72 18 152/70 (97) 98 12/28/19 18:00 17 120/74 Mechanical Ventilator 100 12/28/19 17:13 92 140/68 12/28/19 17:00 76 16 140/68 (92) 100 12/28/19 16:59 16 140/83 Mechanical Ventilator 40.0 50 12/28/19 16:00 73 12/28/19 16:00 40 12/28/19 16:00 Mechanical Ventilator 12/28/19 16:00 97.8 73 17 120/74 (89) 92 12/28/19 15:43 97 19 40 12/28/19 15:00 94 18 173/56 (95) 99 12/28/19 15:00 18 141/68 Mechanical Ventilator 100 12/28/19 14:00 61 18 180/84 (116) 99 12/28/19 14:00 16 140/83 Mechanical Ventilator 50 12/28/19 13:00 57 18 173/78 (109) 99 12/28/19 13:00 60 173/78 Mechanical Ventilator 50 12/28/19 12:00 97.6 60 18 169/84 (112) 100 12/28/19 12:00 60 12/28/19 12:00 Mechanical Ventilator 12/28/19 12:00 50 12/28/19 11:37 72 142/62 12/28/19 11:30 67 18 142/62 (88) 100 12/28/19 11:05 75 18 40 12/28/19 11:00 62 18 161/85 (110) 99 12/28/19 11:00 16 145/62 Mechanical Ventilator 50 Intake and Output 12/28/19 12/29/19 19:00 07:00 Intake Total 2045 ml 1756.333 ml Output Total 2600 ml 1435 ml Balance -555 ml 321.333 ml Free Water 100 ml 150 ml IV Total 1465 ml 1126.333 ml Tube Feeding 480 ml 480 ml Output Urine Total 2600 ml 1435 ml Laboratory Tests 12/28/19 20:33: POC Whole Blood Glucose [Pending] 12/29/19 04:00: White Blood Count 7.9, Red Blood Count 3.12L, Hemoglobin 8.7L, Hematocrit 27.3L, Mean Corpuscular Volume 87, Mean Corpuscular Hemoglobin 28.0, Mean Corpuscular Hemoglobin Concent 32.0, Red Cell Distribution Width 17.9H, Platelet Count 127L, Mean Platelet Volume 8.1, Neutrophils (%) (Auto) , Lymphocytes (%) (Auto) , Monocytes (%) (Auto) , Eosinophils (%) (Auto) , Basophils (%) (Auto) , Neutrophils % (Manual) [Pending], Lymphocytes % (Manual) [Pending], Platelet Estimate [Pending], Platelet Morphology [Pending], Arterial Blood pH 7.417, Arterial Blood Partial Pressure CO2 46.2H, Arterial Blood Partial Pressure O2 94.6, Arterial Blood HCO3 29.1H, Arterial Blood Oxygen Saturation 96.5, Arterial Blood Base Excess 4.1H, Eugene Test Positive, Sodium Level 145, Potassium Level 3.3L, Chloride Level 104, Carbon Dioxide Level 29, Anion Gap 12, Blood Urea Nitrogen 76H, Creatinine 1.8H, Estimat Glomerular Filtration Rate 28.0, Glucose Level 106, Calcium Level 8.4L, Total Bilirubin 1.0, Direct Bilirubin 0.5H, Aspartate Amino Transf (AST/SGOT) 22, Alanine Aminotransferase (ALT/SGPT) 20, Alkaline Phosphatase 96, Total Protein 7.5, Albumin 2.0L, Globulin 5.5, Albumin/Globulin Ratio 0.4L 12/29/19 08:07: Arterial Blood pH [Pending], Arterial Blood Partial Pressure CO2 [Pending], Arterial Blood Partial Pressure O2 [Pending], Arterial Blood HCO3 [Pending], Arterial Blood Oxygen Saturation [Pending], Arterial Blood Base Excess [Pending], Eugene Test [Pending] Height (Feet): 5 Height (Inches): 6.00 Weight (Pounds): 298 General Appearance: no apparent distress EENT: normal ENT inspection Neck: supple Cardiovascular: normal rate Respiratory/Chest: decreased breath sounds Abdomen: normal bowel sounds, non tender, soft Extremities: non-tender Assessment/Plan Problem List: (1) CKD (chronic kidney disease) stage 3, GFR 30-59 ml/min ICD Codes: N18.3 - Chronic kidney disease, stage 3 (moderate) SNOMED: 811758133 (2) COPD (chronic obstructive pulmonary disease) ICD Codes: J44.9 - Chronic obstructive pulmonary disease, unspecified SNOMED: 92164912 (3) Smoker ICD Codes: F17.200 - Nicotine dependence, unspecified, uncomplicated SNOMED: 84104489 (4) GERD (gastroesophageal reflux disease) ICD Codes: K21.9 - Gastro-esophageal reflux disease without esophagitis SNOMED: 086383972 (5) Atrial fibrillation with RVR ICD Codes: I48.91 - Unspecified atrial fibrillation SNOMED: 085587462128826 Status: stable Assessment/Plan: ngtf pepcid fu H&H monitor labs bowel regimen fu labs fu cardiology recs icu care pending weaning Mervin Victoria MD Dec 29, 2019 10:04
[2019-12-29] MEDS: Micafungin 100 MG in NS 110 ML IVPB SCH (10:38)
--- NOTE | 2019-12-29 10:50 | NUR ---
NURSE NOTES: Patient seen by Luz Bowen NP. Will follow up with new orders.No significant change at this time. Remains with episode of agitation, called Dr Ballesteros to clarify order for Prolixin Deconate Q6hrs and requested renewal for Ativan. Per Dr Ballesteros no more Ativan, one dose Toradol IM given,patient remains agitated and at increase risk for fall and self extubation.Fentanyl increase to 300mcg/hr, will keep close monitoring.Call light within easy reach
--- NOTE | 2019-12-29 12:06 | NUR ---
NURSE NOTES: No significant change and remains hemodynamically stable.Will continue close monitoring
[2019-12-29] MEDS ORDERED: NS 275ml ONE (12:13)
[2019-12-29] MEDS ORDERED: Tubing IV Secondary IV ONE (12:13)
[2019-12-29] MEDS ORDERED: Sterile Water Irrig 1000ml IRRIG ONE (12:13)
--- NOTE | 2019-12-29 14:00 | NUR ---
NURSE NOTES: Adls done,turned and repositioned.No significant change.Will continue same plan of care
[2019-12-29] MEDS: [UNRECOGNIZED DRUG - OTHER] IV SCH ×2 (14:14)
[2019-12-29] MEDS: REMDESIVIR IV SCH ×2 (14:14)
--- NOTE | 2019-12-29 14:56 | Surgery Progress Note ---
Surgery Progress Note Subjective Additional Comments afebrile HD stable labs okay no n/v on support Objective Last 24 Hour Vital Signs Date Time Temp Pulse Resp B/P (MAP) Pulse Ox O2 Delivery O2 Flow Rate FiO2 12/29/19 14:00 18 141/91 Mechanical Ventilator 40 12/29/19 14:00 71 18 141/91 (108) 89 12/29/19 13:00 98.5 80 18 148/85 (106) 99 12/29/19 13:00 21 127/99 40 12/29/19 12:20 116 144/96 12/29/19 12:00 Mechanical Ventilator 12/29/19 12:00 40 12/29/19 12:00 104 19 153/96 (115) 98 12/29/19 12:00 104 12/29/19 12:00 20 131/88 Mechanical Ventilator 40 12/29/19 11:28 113 19 40 12/29/19 11:00 20 131/88 Mechanical Ventilator 40 12/29/19 11:00 97 16 114/94 (101) 96 12/29/19 10:00 18 155/81 Mechanical Ventilator 40 12/29/19 10:00 92 15 131/88 (102) 100 12/29/19 09:00 109 16 155/81 (105) 68 12/29/19 09:00 17 150/91 Mechanical Ventilator 40 12/29/19 08:49 109 150/91 12/29/19 08:00 108 12/29/19 08:00 18 146/71 Mechanical Ventilator 40 12/29/19 08:00 95 18 146/71 (96) 94 12/29/19 08:00 Mechanical Ventilator 12/29/19 08:00 40 12/29/19 07:53 121 21 100 Mechanical Ventilator 40 12/29/19 07:52 115 22 40 12/29/19 07:00 26 153/79 Mechanical Ventilator 40 12/29/19 07:00 99.1 66 19 132/110 (117) 100 12/29/19 06:00 18 124/57 Mechanical Ventilator 40 12/29/19 06:00 64 16 124/57 (79) 96 12/29/19 05:56 18 137/70 Mechanical Ventilator 40 12/29/19 05:15 73 140/82 12/29/19 05:00 99 22 157/102 (120) 95 12/29/19 05:00 18 136/59 Mechanical Ventilator 40 12/29/19 04:30 73 17 140/82 (101) 99 12/29/19 04:00 40 12/29/19 04:00 18 136/71 Mechanical Ventilator 40 12/29/19 04:00 Mechanical Ventilator 12/29/19 04:00 98.9 79 18 136/71 (92) 99 12/29/19 03:18 122 20 40 12/29/19 03:18 50 12/29/19 03:00 18 152/84 Mechanical Ventilator 40 12/29/19 03:00 111 17 152/84 (106) 97 12/29/19 02:00 18 147/75 Mechanical Ventilator 40 12/29/19 02:00 61 18 147/75 (99) 99 12/29/19 01:00 68 18 120/63 (82) 99 12/29/19 01:00 18 120/63 Mechanical Ventilator 40 12/29/19 00:06 94 12/29/19 00:00 40 12/29/19 00:00 18 126/69 Mechanical Ventilator 40 12/29/19 00:00 Mechanical Ventilator 12/29/19 00:00 98.0 69 17 126/69 (88) 99 12/28/19 23:52 191/83 12/28/19 23:00 18 112/62 Mechanical Ventilator 40 12/28/19 23:00 80 18 112/62 (79) 97 12/28/19 22:25 55 18 40 12/28/19 22:00 20 121/75 (90) 99 12/28/19 22:00 18 121/75 Mechanical Ventilator 40 12/28/19 21:04 60 18 147/76 100 12/28/19 21:00 59 17 147/76 (99) 99 12/28/19 21:00 18 147/76 Mechanical Ventilator 40 12/28/19 20:35 60 126/56 1820 20:34 60 18 126/56 100 1820 20:02 44 12/28/19 20:00 96.6 51 17 134/57 (82) 98 20 20:00 40 20 20:00 Mechanical Ventilator 12/28/19 20:00 18 134/57 Mechanical Ventilator 40 12/28/19 19:26 58 18 40 12/28/19 19:00 50 18 106/51 (69) 98 12/28/19 19:00 17 140/78 Mechanical Ventilator 100 12/28/19 18:00 72 18 152/70 (97) 98 12/28/19 18:00 17 120/74 Mechanical Ventilator 100 12/28/19 17:13 92 140/68 12/28/19 17:00 76 16 140/68 (92) 100 12/28/19 16:59 16 140/83 Mechanical Ventilator 40.0 50 12/28/19 16:00 73 12/28/19 16:00 40 12/28/19 16:00 Mechanical Ventilator 12/28/19 16:00 97.8 73 17 120/74 (89) 92 12/28/19 15:43 97 19 40 12/28/19 15:00 94 18 173/56 (95) 99 12/28/19 15:00 18 141/68 Mechanical Ventilator 100 I&O Intake and Output 12/28/19 12/29/19 19:00 07:00 Intake Total 2045 ml 1756.333 ml Output Total 2600 ml 1435 ml Balance -555 ml 321.333 ml Free Water 100 ml 150 ml IV Total 1465 ml 1126.333 ml Tube Feeding 480 ml 480 ml Output Urine Total 2600 ml 1435 ml Dressing: other Wound: other Cardiovascular: RSR Respiratory: decreased breath sounds Abdomen: soft, non-tender Extremities: edema, cyanosis Laboratory Tests Test 12/28/19 20:33 12/29/19 04:00 12/29/19 08:07 POC Whole Blood Glucose Pending White Blood Count 7.9 K/UL (4.8-10.8) Red Blood Count 3.12 M/UL (4.20-5.40) L Hemoglobin 8.7 G/DL (12.0-16.0) L Hematocrit 27.3 % (37.0-47.0) L Mean Corpuscular Volume 87 FL (80-99) Mean Corpuscular Hemoglobin 28.0 PG (27.0-31.0) Mean Corpuscular Hemoglobin Concent 32.0 G/DL (32.0-36.0) Red Cell Distribution Width 17.9 % (11.6-14.8) H Platelet Count 127 K/UL (150-450) L Mean Platelet Volume 8.1 FL (6.5-10.1) Neutrophils (%) (Auto) % (45.0-75.0) Lymphocytes (%) (Auto) % (20.0-45.0) Monocytes (%) (Auto) % (1.0-10.0) Eosinophils (%) (Auto) % (0.0-3.0) Basophils (%) (Auto) % (0.0-2.0) Differential Total Cells Counted 100 Neutrophils % (Manual) 93 % (45-75) H Lymphocytes % (Manual) 6 % (20-45) L Monocytes % (Manual) 1 % (1-10) Eosinophils % (Manual) 0 % (0-3) Basophils % (Manual) 0 % (0-2) Band Neutrophils 0 % (0-8) Platelet Estimate Decreased L Platelet Morphology Normal Anisocytosis 2+ Arterial Blood pH 7.417 (7.350-7.450) Pending Arterial Blood Partial Pressure CO2 46.2 mmHg (35.0-45.0) H Pending Arterial Blood Partial Pressure O2 94.6 mmHg (75.0-100.0) Pending Arterial Blood HCO3 29.1 mmol/L (22.0-26.0) H Pending Arterial Blood Oxygen Saturation 96.5 % (95-100) Pending Arterial Blood Base Excess 4.1 (-2-2) H Pending Eugene Test Positive Pending Sodium Level 145 MMOL/L (136-145) Potassium Level 3.3 MMOL/L (3.5-5.1) L Chloride Level 104 MMOL/L (98-107) Carbon Dioxide Level 29 MMOL/L (21-32) Anion Gap 12 mmol/L (5-15) Blood Urea Nitrogen 76 mg/dL (7-18) H Creatinine 1.8 MG/DL (0.55-1.30) H Estimat Glomerular Filtration Rate 28.0 mL/min (>60) Glucose Level 106 MG/DL (74-106) Calcium Level 8.4 MG/DL (8.5-10.1) L Total Bilirubin 1.0 MG/DL (0.2-1.0) Direct Bilirubin 0.5 MG/DL (0.0-0.3) H Aspartate Amino Transf (AST/SGOT) 22 U/L (15-37) Alanine Aminotransferase (ALT/SGPT) 20 U/L (12-78) Alkaline Phosphatase 96 U/L (46-116) Total Protein 7.5 G/DL (6.4-8.2) Albumin 2.0 G/DL (3.4-5.0) L Globulin 5.5 g/dL Albumin/Globulin Ratio 0.4 (1.0-2.7) L Plan Problems: (1) Urinary tract infection (2) CHF exacerbation (3) History of schizophrenia (4) Atrial fibrillation with RVR (5) Schizophrenia (6) GERD (gastroesophageal reflux disease) (7) Smoker (8) Atrial fibrillation with rapid ventricular response (9) Lymphadema (10) COPD (chronic obstructive pulmonary disease) (11) CKD (chronic kidney disease) stage 3, GFR 30-59 ml/min (12) NATALIE (acute kidney injury) (13) Dehydration (14) Dysphagia (15) UTI (urinary tract infection) (16) UGI bleed (17) ESBL (extended spectrum beta-lactamase) producing bacteria infection (18) Constipation (19) Lactic acidosis (20) Tinea cruris (21) Onychomycosis (22) Emesis (23) Essential hypertension (24) Anemia (25) Cough (26) Depression (27) Depression (28) Edema (29) Rash (30) Opiate dependence (31) Opiate dependence (32) Opiate dependence (33) Opiate dependence (34) Pyelonephritis (35) Sepsis (36) UTI (urinary tract infection) (37) Nausea and vomiting (38) Abdominal pain Assessment & Plan: [age]-year-old female obese white abdominal pain deep tissue injury identified limited mobility on HD. KUB noted tube in place continue meds feeds Does not seem obstructed We will monitor FINDINGS: Lower thorax: Obscuration of the left costophrenic angle suggestive of pleural effusion. Intraperitoneal space: No free air. Gastrointestinal tract: Unremarkable. No dilation. Bones/joints: Unremarkable. Tubes, lines and devices: The nasogastric tube has the tip at the mid inferior aspect of the gastric body. Other findings: Nonspecific gas pattern. Single frontal view of the abdomen demonstrates tip of the enteric tube and distal side-port projecting over the stomach. Gas is identified within the nondistended large bowel. There is a paucity of small bowel gas seen. Partially visualized left pleural effusion. No other significant interval change. (39) Chest pain (40) Chest pain (41) Nausea (42) Obesity (43) Chronic ulcer of leg (44) Chronic ulcer of leg (45) Chronic ulcer of leg (46) ACS (acute coronary syndrome) (47) Acute chest pain (48) Encounter for dressing change or suture removal (49) Left leg cellulitis (50) Acute encephalopathy (51) Encounter for wound re-check (52) Intractable nausea and vomiting (53) Infection due to ESBL-producing Escherichia coli (54) Chronic venous stasis (55) Change of dressing (56) Change of dressing (57) Change of dressing (58) Change of dressing (59) Change of dressing (60) Change of dressing (61) Change of dressing (62) Change of dressing (63) ESBL urine (64) Lymphadema (65) Lymphedema (66) Lymphedema (67) Lymphedema (68) Lymphedema (69) Lymphedema (70) Lymphedema (71) Lymphedema (72) Lymphedema (73) Open wound of foot (74) Open wound of foot (75) cellulitis (76) chronic lymphedema (77) chronic lymphedema (78) chronic lymphedema (79) hypertension uncontrolled (80) hypertension uncontrolled (81) Intertrigo (82) Sciatica (83) Cellulitis (84) Schizophrenia (85) Chronic bronchitis (86) HTN (hypertension) (87) Venous stasis ulcers (88) Medication refill (89) Chest pain, atypical (90) BMI 45.0-49.9, adult (91) Lymphedema of both lower extremities (92) hypertension uncontrolled (93) hypertension uncontrolled (94) hypertension uncontrolled (95) tenia corpus (96) Deep tissue injury Assessment & Plan: Morbidly obese pt whom presented on admission with Pressure injuries, Edemae bilat lower extremities eschar to dorsal aspects of metatarsals. Pt is very demanding of staff and can be resistive to repositioning. DTPI noted to L Sacrum(L)5.5cm x (W)2.5cm. Base of Pressure Injury is Maroon and indurated with surrounding non-blanchable erythema DTPI R Sacrum(L)5.5cm x (W)2.3cm. Base of Pressure Injury is maroon with purpuric center that is fluctuant. Pt complained of tenderness when minimally palpated. Bilat lower extremities are edematous . Dry eschar noted to nail matrix and tip of L 1st metatarsal, Dorsal L 2nd metatarsal, R 2nd and R 4th metatarsals. Both heels are boggy with non-Blanchable erythema. blisters forming on Right lower extremity anterior tibia. not infected cellulitis / edema on b/l le stable cont abx Tx.Plan: Apply Moisture Barrier Paste to Sacrum R and L gluteal cheeks. Cover with Optifoam drsgs. Change every 3 days and prn. Apply Betadine to dry eschar metatarsals both feet Daily. Apply Cavilon Skin Barrier to both heels. Cover each heel with Optifoam drsgs. Change every 7days and prn. Reposition at least every 2hours or as tolerated. Off-load heels with pillow. right leg hematoma stable critically ill and edema on right leg has compromised dermis over the hematoma. will likely need debridement once improved (97) COVID-19 Assessment & Plan: ++ on vent weaning abx as per ID (98) Respiratory failure (99) Pneumonia Juan Manuel Buckner Dec 29, 2019 14:56
[2019-12-29] MEDS ORDERED: fentaNYL 2500mcg/NS 250ml 250 ML IV SCH (16:00)
--- NOTE | 2019-12-29 16:10 | NUR ---
NURSE NOTES: Patient seen by Dr Grant, order to give 10 MEQ potassium.No significant change at this time.Turned and repositioned.Mouth care provided and suctioned as tolerated. Call light within easy reach.HOB elevated at 35 degree to prevent aspiration.Tolerate well feeding and no residual.Will continue close monitoring
--- NOTE | 2019-12-29 16:13 | Nephrology Progress Note ---
Assessment/Plan Status: stable Assessment/Plan: A/P A/P 1)CKD 3B - Cr 1.8. Monitor - avoid nephrotoxins. - CRS, AFib RVR - IVFs bolus prn 2) Atrial fibrillation with rapid ventricular response - Congestive heart failure - mgmt per cardiology 3) Resp FL- intubated, COVID + - mgmt per ID Subjective Allergies: Coded Allergies: ERYTHROMYCIN BASE (Verified Allergy, Severe, 12/12/19) HALOPERIDOL (Verified Allergy, Unknown, 12/12/19) VANCOMYCIN (Unverified Adverse Reaction, Intermediate, Shortness of Breath, 12/12/19) Subjective Patient intubated on the vent Objective Last 24 Hour Vital Signs Date Time Temp Pulse Resp B/P (MAP) Pulse Ox O2 Delivery O2 Flow Rate FiO2 12/29/19 15:29 64 18 40 12/29/19 15:00 51 18 138/66 (90) 94 12/29/19 14:00 18 141/91 Mechanical Ventilator 40 12/29/19 14:00 71 18 141/91 (108) 89 12/29/19 13:00 98.5 80 18 148/85 (106) 99 12/29/19 13:00 21 127/99 40 12/29/19 12:20 116 144/96 12/29/19 12:00 Mechanical Ventilator 12/29/19 12:00 40 12/29/19 12:00 104 19 153/96 (115) 98 12/29/19 12:00 104 12/29/19 12:00 20 131/88 Mechanical Ventilator 40 12/29/19 11:28 113 19 40 12/29/19 11:00 20 131/88 Mechanical Ventilator 40 12/29/19 11:00 97 16 114/94 (101) 96 12/29/19 10:00 18 155/81 Mechanical Ventilator 40 12/29/19 10:00 92 15 131/88 (102) 100 12/29/19 09:00 109 16 155/81 (105) 68 12/29/19 09:00 17 150/91 Mechanical Ventilator 40 12/29/19 08:49 109 150/91 12/29/19 08:00 108 12/29/19 08:00 18 146/71 Mechanical Ventilator 40 12/29/19 08:00 95 18 146/71 (96) 94 12/29/19 08:00 Mechanical Ventilator 12/29/19 08:00 40 9/19/20 07:53 121 21 100 Mechanical Ventilator 40 12/29/19 07:52 115 22 40 12/29/19 07:00 26 153/79 Mechanical Ventilator 40 12/29/19 07:00 99.1 66 19 132/110 (117) 100 12/29/19 06:00 18 124/57 Mechanical Ventilator 40 12/29/19 06:00 64 16 124/57 (79) 96 12/29/19 05:56 18 137/70 Mechanical Ventilator 40 12/29/19 05:15 73 140/82 12/29/19 05:00 99 22 157/102 (120) 95 12/29/19 05:00 18 136/59 Mechanical Ventilator 40 12/29/19 04:30 73 17 140/82 (101) 99 12/29/19 04:00 40 12/29/19 04:00 18 136/71 Mechanical Ventilator 40 12/29/19 04:00 Mechanical Ventilator 12/29/19 04:00 98.9 79 18 136/71 (92) 99 12/29/19 03:18 122 20 40 12/29/19 03:18 50 12/29/19 03:00 18 152/84 Mechanical Ventilator 40 12/29/19 03:00 111 17 152/84 (106) 97 12/29/19 02:00 18 147/75 Mechanical Ventilator 40 12/29/19 02:00 61 18 147/75 (99) 99 12/29/19 01:00 68 18 120/63 (82) 99 12/29/19 01:00 18 120/63 Mechanical Ventilator 40 12/29/19 00:06 94 12/29/19 00:00 40 12/29/19 00:00 18 126/69 Mechanical Ventilator 40 12/29/19 00:00 Mechanical Ventilator 12/29/19 00:00 98.0 69 17 126/69 (88) 99 12/28/19 23:52 191/83 12/28/19 23:00 18 112/62 Mechanical Ventilator 40 12/28/19 23:00 80 18 112/62 (79) 97 12/28/19 22:25 55 18 40 12/28/19 22:00 20 121/75 (90) 99 12/28/19 22:00 18 121/75 Mechanical Ventilator 40 12/28/19 21:04 60 18 147/76 100 9/18/20 21:00 59 17 147/76 (99) 99 12/28/19 21:00 18 147/76 Mechanical Ventilator 40 12/28/19 20:35 60 126/56 12/28/19 20:34 60 18 126/56 100 12/28/19 20:02 44 12/28/19 20:00 96.6 51 17 134/57 (82) 98 12/28/19 20:00 40 12/28/19 20:00 Mechanical Ventilator 12/28/19 20:00 18 134/57 Mechanical Ventilator 40 12/28/19 19:26 58 18 40 12/28/19 19:00 50 18 106/51 (69) 98 12/28/19 19:00 17 140/78 Mechanical Ventilator 100 12/28/19 18:00 72 18 152/70 (97) 98 12/28/19 18:00 17 120/74 Mechanical Ventilator 100 12/28/19 17:13 92 140/68 12/28/19 17:00 76 16 140/68 (92) 100 12/28/19 16:59 16 140/83 Mechanical Ventilator 40.0 50 Intake and Output 12/28/19 12/29/19 19:00 07:00 Intake Total 2045 ml 1756.333 ml Output Total 2600 ml 1435 ml Balance -555 ml 321.333 ml Free Water 100 ml 150 ml IV Total 1465 ml 1126.333 ml Tube Feeding 480 ml 480 ml Output Urine Total 2600 ml 1435 ml Laboratory Tests 12/28/19 20:33: POC Whole Blood Glucose [Pending] 12/29/19 04:00: White Blood Count 7.9, Red Blood Count 3.12L, Hemoglobin 8.7L, Hematocrit 27.3L, Mean Corpuscular Volume 87, Mean Corpuscular Hemoglobin 28.0, Mean Corpuscular Hemoglobin Concent 32.0, Red Cell Distribution Width 17.9H, Platelet Count 127L, Mean Platelet Volume 8.1, Neutrophils (%) (Auto) , Lymphocytes (%) (Auto) , Monocytes (%) (Auto) , Eosinophils (%) (Auto) , Basophils (%) (Auto) , Differential Total Cells Counted 100, Neutrophils % (Manual) 93H, Lymphocytes % (Manual) 6L, Monocytes % (Manual) 1, Eosinophils % (Manual) 0, Basophils % (Manual) 0, Band Neutrophils 0, Platelet Estimate DecreasedL, Platelet Morp hology Normal, Anisocytosis 2+, Arterial Blood pH 7.417, Arterial Blood Partial Pressure CO2 46.2H, Arterial Blood Partial Pressure O2 94.6, Arterial Blood HCO3 29.1H, Arterial Blood Oxygen Saturation 96.5, Arterial Blood Base Excess 4.1H, Eugene Test Positive, Sodium Level 145, Potassium Level 3.3L, Chloride Level 104, Carbon Dioxide Level 29, Anion Gap 12, Blood Urea Nitrogen 76H, Creatinine 1.8H , Estimat Glomerular Filtration Rate 28.0, Glucose Level 106, Calcium Level 8.4L , Total Bilirubin 1.0, Direct Bilirubin 0.5H, Aspartate Amino Transf (AST/SGOT) 22, Alanine Aminotransferase (ALT/SGPT) 20, Alkaline Phosphatase 96, Total Protein 7.5, Albumin 2.0L, Globulin 5.5, Albumin/Globulin Ratio 0.4L 12/29/19 08:07: Arterial Blood pH [Pending], Arterial Blood Partial Pressure CO2 [Pending], Arterial Blood Partial Pressure O2 [Pending], Arterial Blood HCO3 [Pending], Arterial Blood Oxygen Saturation [Pending], Arterial Blood Base Excess [Pending], Eugene Test [Pending] Height (Feet): 5 Height (Inches): 6.00 Weight (Pounds): 298 Objective In COVID isolation Poli Grant MD Dec 29, 2019 16:13
--- NOTE | 2019-12-29 18:04 | NUR ---
NURSE NOTES: ADLS done, mouth care provided and turned and repositioned.Remains hemodynamically stable.Will continue same care plan
--- NOTE | 2019-12-29 18:17 | Infectious Diseases Prog Note ---
Assessment/Plan Assessment/Plan ASSESSMENT AND PLAN: 1. hx esbl e.coli uti/pyelonephritis, sepsis, leukocytosis, fevers mrsa and vre colonization, NATALIE, respiratory distress/failure Fungemia - + yeast in blood mrsa pna/acinetobacter pna VRE uti covid-19 infection - zyvox, meropenem, polymyxin, micafungin - day # 7 abx combination - remdesivir and dexamethasone - day # 6 - monitor labs and chest x-ray, f/u on cultures - icu care, supportive care 2. Chronic kidney failure, acute renal failure. 3. COPD. 4. Pulmonary followup. 5. Renal followup. 6. History of falls. 7. Atrial fibrillation. Cardiology followup. 8. Obesity. 9. Gait disorder. 10. Schizophrenia. 11. Homeless. 12. Allergic to erythromycin, haloperidol, and vancomycin. 13. Social history is negative. 14. Family history is noncontributory. 15. MAR is noted. 16. Case discussed with RN. 17. Continue treatment per Dr. Dumont and consultants. Subjective Constitutional: Reports: fever, other - on vent HEENT: Reports: congestion Respiratory: Reports: shortness of breath Gastrointestinal/Abdominal: Denies: nausea, vomiting, diarrhea Genitourinary: Reports: other - + trivedi Neurologic: Reports: weakness Skin: Denies: rash Hematologic: Denies: bleeding Musculoskeletal: Reports: pain - controlled Allergies: Coded Allergies: ERYTHROMYCIN BASE (Verified Allergy, Severe, 12/12/19) HALOPERIDOL (Verified Allergy, Unknown, 12/12/19) VANCOMYCIN (Unverified Adverse Reaction, Intermediate, Shortness of Breath, 12/12/19) Objective Last 24 Hour Vital Signs Date Time Temp Pulse Resp B/P (MAP) Pulse Ox O2 Delivery O2 Flow Rate FiO2 12/29/19 17:39 85 152/84 12/29/19 16:00 40 12/29/19 16:00 Mechanical Ventilator 12/29/19 15:29 64 18 40 12/29/19 15:00 51 18 138/66 (90) 94 12/29/19 14:00 18 141/91 Mechanical Ventilator 40 12/29/19 14:00 71 18 141/91 (108) 89 12/29/19 13:00 98.5 80 18 148/85 (106) 99 12/29/19 13:00 21 127/99 40 12/29/19 12:20 116 144/96 12/29/19 12:00 Mechanical Ventilator 12/29/19 12:00 40 12/29/19 12:00 104 19 153/96 (115) 98 12/29/19 12:00 104 12/29/19 12:00 20 131/88 Mechanical Ventilator 40 12/29/19 11:28 113 19 40 12/29/19 11:00 20 131/88 Mechanical Ventilator 40 12/29/19 11:00 97 16 114/94 (101) 96 12/29/19 10:00 18 155/81 Mechanical Ventilator 40 12/29/19 10:00 92 15 131/88 (102) 100 12/29/19 09:00 109 16 155/81 (105) 68 12/29/19 09:00 17 150/91 Mechanical Ventilator 40 12/29/19 08:49 109 150/91 12/29/19 08:00 108 12/29/19 08:00 18 146/71 Mechanical Ventilator 40 12/29/19 08:00 95 18 146/71 (96) 94 12/29/19 08:00 Mechanical Ventilator 12/29/19 08:00 40 12/29/19 07:53 121 21 100 Mechanical Ventilator 40 12/29/19 07:52 115 22 40 12/29/19 07:00 26 153/79 Mechanical Ventilator 40 12/29/19 07:00 99.1 66 19 132/110 (117) 100 12/29/19 06:00 18 124/57 Mechanical Ventilator 40 12/29/19 06:00 64 16 124/57 (79) 96 12/29/19 05:56 18 137/70 Mechanical Ventilator 40 12/29/19 05:15 73 140/82 12/29/19 05:00 99 22 157/102 (120) 95 12/29/19 05:00 18 136/59 Mechanical Ventilator 40 12/29/19 04:30 73 17 140/82 (101) 99 12/29/19 04:00 40 12/29/19 04:00 18 136/71 Mechanical Ventilator 40 12/29/19 04:00 Mechanical Ventilator 12/29/19 04:00 98.9 79 18 136/71 (92) 99 12/29/19 03:18 122 20 40 12/29/19 03:18 50 12/29/19 03:00 18 152/84 Mechanical Ventilator 40 12/29/19 03:00 111 17 152/84 (106) 97 12/29/19 02:00 18 147/75 Mechanical Ventilator 40 12/29/19 02:00 61 18 147/75 (99) 99 12/29/19 01:00 68 18 120/63 (82) 99 12/29/19 01:00 18 120/63 Mechanical Ventilator 40 12/29/19 00:06 94 12/29/19 00:00 40 12/29/19 00:00 18 126/69 Mechanical Ventilator 40 12/29/19 00:00 Mechanical Ventilator 12/29/19 00:00 98.0 69 17 126/69 (88) 99 12/28/19 23:52 191/83 12/28/19 23:00 18 112/62 Mechanical Ventilator 40 12/28/19 23:00 80 18 112/62 (79) 97 12/28/19 22:25 55 18 40 12/28/19 22:00 20 121/75 (90) 99 12/28/19 22:00 18 121/75 Mechanical Ventilator 40 12/28/19 21:04 60 18 147/76 100 12/28/19 21:00 59 17 147/76 (99) 99 12/28/19 21:00 18 147/76 Mechanical Ventilator 40 12/28/19 20:35 60 126/56 12/28/19 20:34 60 18 126/56 100 12/28/19 20:02 44 12/28/19 20:00 96.6 51 17 134/57 (82) 98 12/28/19 20:00 40 12/28/19 20:00 Mechanical Ventilator 12/28/19 20:00 18 134/57 Mechanical Ventilator 40 12/28/19 19:26 58 18 40 12/28/19 19:00 50 18 106/51 (69) 98 12/28/19 19:00 17 140/78 Mechanical Ventilator 100 Height (Feet): 5 Height (Inches): 6.00 Weight (Pounds): 298 General Appearance: other - on vent HEENT: normocephalic, atraumatic, anicteric Respiratory/Chest: crackles/rales, rhonchi - bilaterally Cardiovascular: normal rate, regular rhythm, no gallop/murmur, no JVD Abdomen: normal bowel sounds, soft, non tender, no organomegaly, non distended Genitourinary: other - + trivedi - urine slt cloudy Extremities: no cyanosis Skin: no rash Neurologic/Psychiatric: other - lethargic, on vent Lymphatic: no neck adenopathy Musculoskeletal: no effusion Chest x-ray - 11/17/19 - Procedure: XRAY Chest 1v Indication: Shortness of breath Technique: One view of the chest Comparison: 12/17/2019 Findings: The heart is enlarged. There is bilateral interstitial and airspace disease is again demonstrated, probably unchanged allowing for differences in degree of inspiration. Impression: Unchanged, over one day, findings as above. Chest x-ray - 12/21/19 - Procedure: XRAY Chest 1v Indication: Shortness of breath Technique: One view of the chest Comparison: 12/19/2019 Findings: The heart is enlarged. Bilateral extensive infiltrates are again demonstrated, stable to slightly worse allowing for differences in exposure technique. There is suggestion of increasing pleural fluid on the left. Nasogastric tube is again demonstrated. Impression: Stable to worsened bilateral extensive infiltrates, since exam of 2 days prior Increasing left pleural effusion Chest x-ray - 12/23/19 - IMPRESSION: 1. No significant interval change from the prior chest x-ray. 2. Persistent moderate left pleural effusion and mild right pleural effusion. 3. Pulmonary vascular congestion. 4. Persistent opacity in the left lung base, which may represent atelectasis versus pneumonia. Chest x-ray - 12/25/19 - Procedure: XRAY Chest 1v Procedure: XRAY Chest 1v Reason for study: Reason For Exam: SOB Comparison films: 12/24/2019. FINDINGS: The tracheal tube and NG tube remain in place. Vascular prominence and bilateral hazy alveolar densities are unchanged. Cardiomegaly and small effusions also unchanged. The bony thorax appear unremarkable. IMPRESSION: NO SIGNIFICANT CHANGE COMPARED TO PREVIOUS EXAM. 12/26/19 - Procedure: XRAY Chest 1v Procedure: XRAY Chest 1v Reason for study: Reason For Exam: SOB Comparison films: 12/25/2019. FINDINGS: Endotracheal tube and NG tube remain in place. Hazy bilateral alveolar densities are essentially unchanged given the difference in technique. Cardiomegaly and right effusion again noted. The bony thorax appear unremarkable. IMPRESSION: NO SIGNIFICANT CHANGE COMPARED TO PREVIOUS EXAM. Chest x-ray - 9/18/20 - Procedure: XRAY Chest 1v Indication: Reason For Exam: SOB Technique: Single AP view of the chest. Comparison: Chest radiograph dated 12/27/2019 Findings: Exam is again noted to be diagnostically limited due to underpenetration, patient rotation, and exclusion of part of the left hemithorax from the [id number]. Within these limitations: No significant change in appearance of visualized cardiomediastinal silhouette. Unchanged layering right pleural effusion with associated basilar airspace opacities. Likely retrocardiac consolidation, unchanged. No apical pneumothoraces. Unchanged enteric and endotracheal tubes. Unchanged left PICC. Microbiology Date/Time Source Procedure Growth Status 12/25/19 15:45 Blood Blood Culture - Preliminary NO GROWTH AFTER 48 HOURS Resulted 12/23/19 23:50 Nasopharynx SARS-CoV-2 RdRp Gene Assay - Final Complete 12/17/19 20:45 Indwelling Cath Urine Culture - Final Enterococcus Faecium - Vre Complete 12/12/19 21:00 Rectum - Final NO CARBAPENEM-RESISTANT ENTEROBACTERI... Complete Laboratory Tests Test 12/28/19 20:33 12/29/19 04:00 12/29/19 08:07 POC Whole Blood Glucose Pending White Blood Count 7.9 K/UL (4.8-10.8) Red Blood Count 3.12 M/UL (4.20-5.40) L Hemoglobin 8.7 G/DL (12.0-16.0) L Hematocrit 27.3 % (37.0-47.0) L Mean Corpuscular Volume 87 FL (80-99) Mean Corpuscular Hemoglobin 28.0 PG (27.0-31.0) Mean Corpuscular Hemoglobin Concent 32.0 G/DL (32.0-36.0) Red Cell Distribution Width 17.9 % (11.6-14.8) H Platelet Count 127 K/UL (150-450) L Mean Platelet Volume 8.1 FL (6.5-10.1) Neutrophils (%) (Auto) % (45.0-75.0) Lymphocytes (%) (Auto) % (20.0-45.0) Monocytes (%) (Auto) % (1.0-10.0) Eosinophils (%) (Auto) % (0.0-3.0) Basophils (%) (Auto) % (0.0-2.0) Differential Total Cells Counted 100 Neutrophils % (Manual) 93 % (45-75) H Lymphocytes % (Manual) 6 % (20-45) L Monocytes % (Manual) 1 % (1-10) Eosinophils % (Manual) 0 % (0-3) Basophils % (Manual) 0 % (0-2) Band Neutrophils 0 % (0-8) Platelet Estimate Decreased L Platelet Morphology Normal Anisocytosis 2+ Arterial Blood pH 7.417 (7.350-7.450) Pending Arterial Blood Partial Pressure CO2 46.2 mmHg (35.0-45.0) H Pending Arterial Blood Partial Pressure O2 94.6 mmHg (75.0-100.0) Pending Arterial Blood HCO3 29.1 mmol/L (22.0-26.0) H Pending Arterial Blood Oxygen Saturation 96.5 % (95-100) Pending Arterial Blood Base Excess 4.1 (-2-2) H Pending Eugene Test Positive Pending Sodium Level 145 MMOL/L (136-145) Potassium Level 3.3 MMOL/L (3.5-5.1) L Chloride Level 104 MMOL/L (98-107) Carbon Dioxide Level 29 MMOL/L (21-32) Anion Gap 12 mmol/L (5-15) Blood Urea Nitrogen 76 mg/dL (7-18) H Creatinine 1.8 MG/DL (0.55-1.30) H Estimat Glomerular Filtration Rate 28.0 mL/min (>60) Glucose Level 106 MG/DL (74-106) Calcium Level 8.4 MG/DL (8.5-10.1) L Total Bilirubin 1.0 MG/DL (0.2-1.0) Direct Bilirubin 0.5 MG/DL (0.0-0.3) H Aspartate Amino Transf (AST/SGOT) 22 U/L (15-37) Alanine Aminotransferase (ALT/SGPT) 20 U/L (12-78) Alkaline Phosphatase 96 U/L (46-116) Total Protein 7.5 G/DL (6.4-8.2) Albumin 2.0 G/DL (3.4-5.0) L Globulin 5.5 g/dL Albumin/Globulin Ratio 0.4 (1.0-2.7) L Current Medications Medications (Trade) Dose Ordered Sig/Shiraz Route PRN Reason Start Time Stop Time Status Last Admin Dose Admin Acetaminophen (Tylenol) 650 mg Q4H PRN NG Temp >100.5 12/22/19 16:00 01/11/20 22:14 12/23/19 13:53 Acetaminophen (Tylenol) 650 mg Q4H PRN NG Mild Pain (Pain Scale 1-3) 12/22/19 16:00 01/11/20 22:14 12/28/19 05:27 Albuterol Sulfate (Proventil MDI) 2 puff Q4H PRN INH Shortness of Breath 12/24/19 10:30 03/23/20 10:29 Bacitracin (Bacitracin 15gm tube) 1 applic BID TOPIC 12/22/19 18:00 03/12/20 08:59 12/29/19 17:41 Chlorhexidine Gluconate (Jessie-Hex 2%) 1 applic DAILY@1999 TOPIC 12/24/19 20:00 03/23/20 19:59 12/28/19 20:34 Chlorpromazine (Thorazine) 25 mg Q6H PRN IM agitation 12/29/19 08:30 01/28/20 08:29 12/29/19 10:39 Clotrimazole (Lotrimin) 1 applic TWICE A DAY TOPIC 12/22/19 18:00 03/12/20 08:59 12/29/19 17:39 Dexamethasone Sodium Phosphate (Decadron 10mg/ ml Inj) 6 mg DAILY IV 12/24/19 09:00 01/03/20 08:59 12/29/19 08:48 Dextrose (Dextrose 50%) 25 ml Q30M PRN IV Hypoglycemia 12/23/19 10:45 03/22/20 10:44 Dextrose (Dextrose 50%) 50 ml Q30M PRN IV Hypoglycemia 12/23/19 10:45 03/22/20 10:44 Diltiazem HCl (Cardizem Tab) 90 mg Q6HR NG 12/22/19 18:00 01/13/20 11:59 12/29/19 17:39 Docusate Sodium (Colace) 100 mg BID NG 12/25/19 09:00 01/24/20 08:59 12/29/19 17:39 Enoxaparin Sodium (Lovenox) 60 mg DAILY SUBQ 12/23/19 09:00 03/22/20 08:59 12/29/19 08:50 Famotidine (Pepcid I.v.) 20 mg Q12HR IVP 12/25/19 09:00 01/24/20 08:59 12/29/19 08:48 Furosemide (Lasix) 40 mg Q6HR IV 12/25/19 12:00 01/24/20 11:59 12/29/19 17:36 Insulin Aspart (NovoLOG) BEFORE MEALS AND HS SUBQ 12/23/19 11:30 03/22/20 11:29 12/29/19 12:23 Linezolid 300 ml @ 300 mls/hr Q12HR IVPB 12/27/19 21:00 12/31/19 20:59 12/29/19 08:47 Magnesium Hydroxide (Mom) 30 ml HSPRN PRN NG Constipation 12/22/19 15:15 01/21/20 15:14 Meropenem 500 mg/ Sodium Chloride 55 ml @ 110 mls/hr Q12H IVPB 12/26/19 16:00 12/31/19 15:59 12/29/19 17:41 Metoprolol Tartrate (Lopressor) 50 mg Q12HR NG 12/22/19 21:00 03/18/20 20:59 12/29/19 08:49 Micafungin Sodium 100 mg/Sodium Chloride 110 ml @ 110 mls/hr Q24H IVPB 12/27/19 09:00 01/01/20 08:59 12/29/19 10:38 Miscellaneous Medication (Remdesivir Fact Sheet) 1 ea ONCE PRN MISC Pt currently sedated 12/24/19 10:30 01/03/20 10:29 Nitroglycerin (Ntg) 0.4 mg Q5M PRN SL Prn Chest Pain 12/22/19 15:00 01/11/20 22:14 Ondansetron HCl (Zofran) 4 mg Q6H PRN IVP Nausea & Vomiting 12/22/19 15:15 01/11/20 15:14 Polyethylene Glycol (Miralax) 17 gm BEDTIME NG 12/22/19 21:00 01/18/20 20:59 12/28/19 20:34 Polymyxin B Sulfate 288775 units/Dextrose 550 ml @ 550 mls/hr EVERY 12 HOURS IV 12/23/19 13:00 12/30/19 12:59 12/29/19 08:47 Quetiapine Fumarate (SEROqueL) 50 mg EVERY 8 HOURS ORAL 12/28/19 22:00 02/11/20 17:59 12/29/19 14:15 Remdesivir 100 mg/ Sodium Chloride 250 ml @ 250 mls/hr Q24H IV 12/25/19 14:00 01/02/20 14:59 12/29/19 14:14 Aleisha Coronel MD Dec 29, 2019 18:17
--- NOTE | 2019-12-29 19:33 | NUR ---
NURSE NOTES: Received report from Joanie COHEN. PO x 1 and restress. A-fib on front desk monitor. Patient is orally intubated ETT 7.5/24cm. Vent settings: AC 18, TV 600, FiO2 40% and Peep 5. Sedated with Fentanyl 200mcgs achieved RASS score of -2. Patient is able to open and close eyes to verbal and tactile stimulus for about 5-7seconds. Patient has a an NGT with Nepro at 40ml/hr. There is a Lockett catheter noted, CDI. MARBELLA PICC line newly inserted 12/25, CDI. P200 mattress noted. Bilateral soft wrist restraints noted, pulses present equal and bilaterally. Safety measures observed no acute distress noted. Will continue to monitor.
--- NOTE | 2019-12-29 19:46 | NUR ---
HAND-OFF: Report given to NOEL Womack.
[2019-12-29] MEDS: Dyna-Hex 2% Top Sol 2oz TOPIC SCH (20:38)
[2019-12-29] MEDS: Polymyxin B Sulfate 500,000 UNITS in D5W 500ml 550 ML IV SCH (20:43)
[2019-12-29] MEDS: Miralax 17gm pkt NG SCH (20:49)
--- NOTE | 2019-12-29 21:00 | NUR ---
NURSE NOTES: Called pipeline to verify Polymyxin and Zyvox are comparable to Y site.
--- NOTE | 2019-12-29 22:00 | NUR ---
NURSE NOTES: PM meds given. No residual and water flush 30mL via NGT Cooling blanket noted Rectal Temperature noted to 97.5F. Afebrile and VSS Repositioned and oral care performed. A-fib on the hop separator Patient making good urine output. Safety measures observed and no acute distress noted Will continue t monitor
[2019-12-30] VITALS (25 sets, daily range): BP systolic 86–176; BP diastolic 55–125
--- NOTE | 2019-12-30 | NUR ---
NURSE NOTES: Am care provided with 2RNs and 1CNA. Picture taken Suctioned, repositioned. and oral care provided Patient remains at RASS score of -2. Fentanyl remains 200mcgs: Opens eyes to verbal stimulus for about 5-7 seconds. Afib/Aflutter on the color television console monitor. Range of motion provided. Patient making good urine output. Yellow in color with sediments. Afebrile and VSS. Safety measures observed and no acute distress noted. Will continue to monitor.
--- NOTE | 2019-12-30 01:10 | Cardiology Progress Note ---
Subjective DATE OF SERVICE: Dec 29, 2019 Doing poorly - remains in ICU in critical condition with guarded prognosis. BP range has stabilized Remains COVID19 positive. Monitor: AFIb Persisting respiratory acidosis req'd intubation and mech ventilation Had coffee ground material in NGTube and hematoma on right leg; anti-coagulation discont'd Venous Duplex: negative for DVT Renal fxn and free water deficit still impaired Objective Last 24 Hour Vital Signs Date Time Temp Pulse Resp B/P (MAP) Pulse Ox O2 Delivery O2 Flow Rate FiO2 12/29/19 22:55 90 18 40 12/29/19 22:54 108 186/102 12/29/19 20:49 150/85 12/29/19 20:00 58 16 147/91 (109) 100 12/29/19 19:30 52 18 40 12/29/19 19:00 53 12 129/70 (89) 98 12/29/19 19:00 15 136/76 Mechanical Ventilator 40 12/29/19 18:00 19 124/74 Mechanical Ventilator 40 12/29/19 18:00 55 18 124/74 (91) 98 12/29/19 17:39 85 152/84 12/29/19 17:00 125 21 129/84 (99) 99 12/29/19 17:00 18 129/89 Mechanical Ventilator 40 12/29/19 16:00 40 12/29/19 16:00 Mechanical Ventilator 12/29/19 16:00 18 129/102 Mechanical Ventilator 40 12/29/19 16:00 55 12/29/19 16:00 65 18 159/96 (117) 97 12/29/19 15:29 64 18 40 12/29/19 15:00 51 18 138/66 (90) 94 12/29/19 14:00 18 141/91 Mechanical Ventilator 40 12/29/19 14:00 71 18 141/91 (108) 89 12/29/19 13:00 98.5 80 18 148/85 (106) 99 12/29/19 13:00 21 127/99 40 12/29/19 12:20 116 144/96 12/29/19 12:00 Mechanical Ventilator 12/29/19 12:00 40 12/29/19 12:00 104 19 153/96 (115) 98 12/29/19 12:00 104 12/29/19 12:00 20 131/88 Mechanical Ventilator 40 12/29/19 11:28 113 19 40 12/29/19 11:00 20 131/88 Mechanical Ventilator 40 12/29/19 11:00 97 16 114/94 (101) 96 12/29/19 10:00 18 155/81 Mechanical Ventilator 40 12/29/19 10:00 92 15 131/88 (102) 100 12/29/19 09:00 109 16 155/81 (105) 68 12/29/19 09:00 17 150/91 Mechanical Ventilator 40 12/29/19 08:49 109 150/91 12/29/19 08:00 108 12/29/19 08:00 18 146/71 Mechanical Ventilator 40 12/29/19 08:00 95 18 146/71 (96) 94 12/29/19 08:00 Mechanical Ventilator 12/29/19 08:00 40 12/29/19 07:53 121 21 100 Mechanical Ventilator 40 12/29/19 07:52 115 22 40 12/29/19 07:00 26 153/79 Mechanical Ventilator 40 12/29/19 07:00 99.1 66 19 132/110 (117) 100 12/29/19 06:00 18 124/57 Mechanical Ventilator 40 12/29/19 06:00 64 16 124/57 (79) 96 12/29/19 05:56 18 137/70 Mechanical Ventilator 40 12/29/19 05:15 73 140/82 12/29/19 05:00 99 22 157/102 (120) 95 12/29/19 05:00 18 136/59 Mechanical Ventilator 40 12/29/19 04:30 73 17 140/82 (101) 99 12/29/19 04:00 40 12/29/19 04:00 18 136/71 Mechanical Ventilator 40 12/29/19 04:00 Mechanical Ventilator 12/29/19 04:00 98.9 79 18 136/71 (92) 99 12/29/19 03:18 122 20 40 12/29/19 03:18 50 12/29/19 03:00 18 152/84 Mechanical Ventilator 40 12/29/19 03:00 111 17 152/84 (106) 97 12/29/19 02:00 18 147/75 Mechanical Ventilator 40 12/29/19 02:00 61 18 147/75 (99) 99 ROS: unchanged from 12/12/19 HEENT: Orally intubated, Mechanically Ventilated, Thin secretions ET Tube, other - NGtube RHYTHM: NSR, ST LUNGS: diminished breath sounds, right-sided rhonchi CARDIAC: normal S1 and S2, irregularly irregular ABDOMEN: other - obese EXTREMITIES: moderate edema - mostly non pitting, other - hematoma right leg Laboratory Tests Test 12/29/19 04:00 12/29/19 08:07 White Blood Count 7.9 K/UL (4.8-10.8) Red Blood Count 3.12 M/UL (4.20-5.40) L Hemoglobin 8.7 G/DL (12.0-16.0) L Hematocrit 27.3 % (37.0-47.0) L Mean Corpuscular Volume 87 FL (80-99) Mean Corpuscular Hemoglobin 28.0 PG (27.0-31.0) Mean Corpuscular Hemoglobin Concent 32.0 G/DL (32.0-36.0) Red Cell Distribution Width 17.9 % (11.6-14.8) H Platelet Count 127 K/UL (150-450) L Mean Platelet Volume 8.1 FL (6.5-10.1) Neutrophils (%) (Auto) % (45.0-75.0) Lymphocytes (%) (Auto) % (20.0-45.0) Monocytes (%) (Auto) % (1.0-10.0) Eosinophils (%) (Auto) % (0.0-3.0) Basophils (%) (Auto) % (0.0-2.0) Differential Total Cells Counted 100 Neutrophils % (Manual) 93 % (45-75) H Lymphocytes % (Manual) 6 % (20-45) L Monocytes % (Manual) 1 % (1-10) Eosinophils % (Manual) 0 % (0-3) Basophils % (Manual) 0 % (0-2) Band Neutrophils 0 % (0-8) Platelet Estimate Decreased L Platelet Morphology Normal Anisocytosis 2+ Arterial Blood pH 7.417 (7.350-7.450) Pending Arterial Blood Partial Pressure CO2 46.2 mmHg (35.0-45.0) H Pending Arterial Blood Partial Pressure O2 94.6 mmHg (75.0-100.0) Pending Arterial Blood HCO3 29.1 mmol/L (22.0-26.0) H Pending Arterial Blood Oxygen Saturation 96.5 % (95-100) Pending Arterial Blood Base Excess 4.1 (-2-2) H Pending Eugene Test Positive Pending Sodium Level 145 MMOL/L (136-145) Potassium Level 3.3 MMOL/L (3.5-5.1) L Chloride Level 104 MMOL/L (98-107) Carbon Dioxide Level 29 MMOL/L (21-32) Anion Gap 12 mmol/L (5-15) Blood Urea Nitrogen 76 mg/dL (7-18) H Creatinine 1.8 MG/DL (0.55-1.30) H Estimat Glomerular Filtration Rate 28.0 mL/min (>60) Glucose Level 106 MG/DL (74-106) Calcium Level 8.4 MG/DL (8.5-10.1) L Total Bilirubin 1.0 MG/DL (0.2-1.0) Direct Bilirubin 0.5 MG/DL (0.0-0.3) H Aspartate Amino Transf (AST/SGOT) 22 U/L (15-37) Alanine Aminotransferase (ALT/SGPT) 20 U/L (12-78) Alkaline Phosphatase 96 U/L (46-116) Total Protein 7.5 G/DL (6.4-8.2) Albumin 2.0 G/DL (3.4-5.0) L Globulin 5.5 g/dL Albumin/Globulin Ratio 0.4 (1.0-2.7) L Assessment/Plan Assessment/Plan CRITICAL AND GUARDED Acute respiratory failure Acute on chronic respiratory acidosis AFiB with labile heart rates CHF, ac/chr diast - compensated BLE edema Sepsis with shock obesity COPD with bronchospasm Acute renal failure - worsening Pleural effusion GI bleeding Acute diastolic CHF Covid 19 PNA Hypokalemia Vent support Monitor acid/base parameters. Antimicrobials Titrate rate-control meds - hold digitalis for elevated levels. Maintain diltiazem and metoprolol. DC apixaban - hold anticoagulation due to GI bleeding. Continued desk monitor Diuresis based on clinical parameters; trend BNP May need trach Potassiums suppl Agree with consideration for DNR Jerome Meek MD Dec 30, 2019 01:10
--- NOTE | 2019-12-30 02:00 | NUR ---
NURSE NOTES: Patient remains stable at this time, RASS maintained at -2. Patient making good urine out via trivedi. Patient was suctioned and oral care performed. Repositioned patient. Assessed patient for pain using FLACC scoring method; FLACC score is 0/10. Safety measures observed and no acute distress noted. Will continue to monitor.
[2019-12-30] MEDS: fentaNYL 2500mcg/NS 250ml 250 ML IV SCH ×4 (04:08→16:31)
--- NOTE | 2019-12-30 04:08 | NUR ---
NURSE NOTES: Scanned new bag. Automatically, dosage changed to 10mcgs even though true dosage is unchanged 200mcgs. DC current order and put new order for "able to TITRATE".
[2019-12-30] MEDS ORDERED: fentaNYL 2500mcg/NS 250ml 250 ML IV SCH (05:00)
[2019-12-30] MEDS: Meropenem 500 MG in NS 55 ML IVPB SCH ×2 (05:02→16:32)
[2019-12-30] MEDS: dilTIAZem HCl 90mg tab NG SCH ×3 (05:08→17:43)
[2019-12-30] MEDS: NovoLOG Insulin Flexpen SUBQ SCH ×4 (06:14→21:28)
[2019-12-30 06:15] LABS: HEMATOCRIT 28.2 % (37.0-47.0); HEMOGLOBIN 8.9 G/DL (12.0-16.0); MEAN CORPUSCULAR VOLUME 89 FL (80-99); PLATELET COUNT 106 K/UL (150-450); RED BLOOD COUNT 3.17 M/UL (4.20-5.40); RED CELL DISTRIBUTION WIDTH 20.1 % (11.6-14.8); WHITE BLOOD COUNT 6.5 K/UL (4.8-10.8)
--- NOTE | 2019-12-30 06:15 | NUR ---
NURSE NOTES: EMAR shows Fentanyl bag, but clicked "non-admin" since clisked and administered at 0408.
--- NOTE | 2019-12-30 07:00 | NUR ---
NURSE NOTES: Since clicked "non admin", Fentanyl was gone from IV spread sheet. Must fix the situation before giving the report. UNDO "non-admin" and scanned from previous bag. Co-signed with Grecia Chapman RN. Made a note on the IV spread sheet on the comment section.
--- NOTE | 2019-12-30 07:20 | NUR ---
NURSE NOTES: Fentanyl IV spread sheet was fixed and report was given to Jay.
--- NOTE | 2019-12-30 07:23 | Pulmonolgy Critical Care Note ---
Luz Bowen BIT SHARPENER OPERATOR 12/30/19 0723: Critical Care - Asmt/Plan Assessment/Plan: ASSESSMENT acute hypoxemic hypercapnic resp failure, requiring intubation 12/22 COVID 19 PNA sepsis fungemia UTI with E coli ESBL UTI VRE possible aspiration PNA COPD Bronchospasm Atrial fibrillation with rapid ventricular response Congestive heart failure Acute renal failure on CKD Severe anemia Probable GI bleeding Thrombocytopenia Status post ground fall Tobacco dependency Morbid obesity probably GARY Homeless R knee edema and hematoma, likely sprain /strain post fall PLAN OF CARE ICU intubated 12/22 ABG better with AC 18, titrate Fio2 to keep sat above 90% ABG this am pending CXR 12/27 no significant changes fup with CXR and ABG MDI Albuterol in line with vent will evaluated for thoracentesis when more stable not started on weaning trials 12/28 with high PS settings as ordered, goal MV 10 lpm discussed with RN, will start today steroids IV ( started 12/23) and Remdesivir (started 12/24 ) initial diagnoses with COVID 19 at [facility] 11/29, was not hypoxic and not intubated, was not treated with Remdesivivr , only received empiric abx for PNA sedation with Fentanyl gtt - down titrate as tolerated for weaning trials DVT prophylaxis with Lovenox prior Venous Duplex BLE -NGT COVID 19 by PCR 12/22 positive isolation [place] 6 52 , initial CRP 15.6, ferritin 769, fup with inflammatory markers CRP 12/27 -39.1 ; ferritin down to 629 on diuresis with Lasix , monitor volumes closely creat remains stable rate control- per cardio recs: monitor volumes pro BNP trending down ECHO with pEF no evidence of WMA GI prophylaxis with PPI s/p Venofer x 2 s/p blood transfusion 12/25 monitor HH with goal to keep Hgb >7 GI procedure when stable monitor PLT counts renal US no hydro, BL nonobstructive stones s/p IV hydration, now resumed again per nephro monitor renal parameters, lytes , e/lyte management as per nephro recs UCX 12/11 + E coli ESBL, BCX 12/16 1/2 + yeast, fup with yeast ID, ? source BCX 12/17 NGTD BCX 12/22 and 12/24 NGTD UCX 12/16 VRE SCX 12/19 MRSA, ACB MDR now on meropenem , micafungin , Polymyxin and Zyvox -as per ID recs , cooling blanket prn fevers prior X ray R knee given fall 12/15 , large hematoma, swelling-no fx or dislocation ice R knee and elevate CT head no acute IC pathology fall precautions prior declined Nicotine patch discussion on weight loss if receptive - not at this time; anxious and wants to go home pain management anxiolytic prn SW consult for placement evaluated by bioethics -> DNR/DNI status appropriate case discussed and evaluated by supervising physician ivy mccarty for a consult! Critical Care - Objective Last 24 Hour Vital Signs Date Time Temp Pulse Resp B/P (MAP) Pulse Ox O2 Delivery O2 Flow Rate FiO2 12/30/19 06:45 101 24 40 12/30/19 06:00 102 24 158/67 (97) 99 12/30/19 05:08 108 175/82 12/30/19 05:00 119 24 173/92 (119) 99 12/30/19 04:08 22 167/77 Mechanical Ventilator 40 12/30/19 04:00 121 12/30/19 04:00 Mechanical Ventilator 12/30/19 04:00 40 12/30/19 04:00 121 20 167/77 (107) 87 12/30/19 03:23 71 18 40 12/30/19 03:00 113 18 146/122 (130) 95 12/30/19 02:00 110 26 176/125 (142) 97 12/30/19 01:00 98 18 150/83 (105) 99 12/30/19 00:00 71 12/30/19 00:00 98.7 71 13 123/66 (85) 100 12/30/19 00:00 Mechanical Ventilator 12/30/19 00:00 40 12/29/19 23:00 83 6 157/92 (113) 100 12/29/19 22:55 90 18 40 12/29/19 22:54 108 186/102 12/29/19 22:00 110 18 179/138 (152) 99 12/29/19 21:00 Mechanical Ventilator 12/29/19 21:00 78 12 141/92 (108) 94 12/29/19 20:49 150/85 12/29/19 20:00 58 16 147/91 (109) 100 12/29/19 19:30 52 18 40 12/29/19 19:00 53 12 129/70 (89) 98 12/29/19 19:00 15 136/76 Mechanical Ventilator 40 12/29/19 18:00 19 124/74 Mechanical Ventilator 40 12/29/19 18:00 55 18 124/74 (91) 98 12/29/19 17:39 85 152/84 12/29/19 17:00 125 21 129/84 (99) 99 12/29/19 17:00 18 129/89 Mechanical Ventilator 40 12/29/19 16:00 40 12/29/19 16:00 Mechanical Ventilator 12/29/19 16:00 18 129/102 Mechanical Ventilator 40 12/29/19 16:00 55 12/29/19 16:00 65 18 159/96 (117) 97 12/29/19 15:29 64 18 40 12/29/19 15:00 51 18 138/66 (90) 94 12/29/19 14:00 18 141/91 Mechanical Ventilator 40 12/29/19 14:00 71 18 141/91 (108) 89 12/29/19 13:00 98.5 80 18 148/85 (106) 99 12/29/19 13:00 21 127/99 40 12/29/19 12:20 116 144/96 12/29/19 12:00 Mechanical Ventilator 12/29/19 12:00 40 12/29/19 12:00 104 19 153/96 (115) 98 12/29/19 12:00 104 12/29/19 12:00 20 131/88 Mechanical Ventilator 40 12/29/19 11:28 113 19 40 12/29/19 11:00 20 131/88 Mechanical Ventilator 40 12/29/19 11:00 97 16 114/94 (101) 96 12/29/19 10:00 18 155/81 Mechanical Ventilator 40 12/29/19 10:00 92 15 131/88 (102) 100 12/29/19 09:00 109 16 155/81 (105) 68 12/29/19 09:00 17 150/91 Mechanical Ventilator 40 12/29/19 08:49 109 150/91 12/29/19 08:00 108 12/29/19 08:00 18 146/71 Mechanical Ventilator 40 12/29/19 08:00 95 18 146/71 (96) 94 12/29/19 08:00 Mechanical Ventilator 12/29/19 08:00 40 12/29/19 07:53 121 21 100 Mechanical Ventilator 40 12/29/19 07:52 115 22 40 Objective: General Appearance: morbidly obese , sedated, on vent AC 600-18-40% PEEP 5 Lines, tubes and drains: peripheral HEENT: normocephalic, atraumatic, anicteric, NGT in , OP with ET Neck: non-tender Respiratory/Chest: chest wall non-tender, no accessory muscle use, decreased breath sounds; Cardiovascular/Chest: irregularly irregular - A fib , tachy at times , distant heart sounds, LUE PICC in place , intact Abdomen: normal bowel sounds, non tender , obese, soft : Lockett Extremities: no calf tenderness, moderate edema - +3 BLE, R knee with large hematoma, edema, Skin Exam: warm/dry, multiple tattoos Neurologic: sedated Musculoskeletal: normal muscle bulk Accucheck: 130 Critical Care - Subjective ROS Limited/Unobtainable: Yes Interval Events: remains afebrile since 12/27 no leukocytosis CXR w/out change not started on weaning with high PS 12/28 as ordered, unclear reason ABG this am pending initial diagnoses with COVID 19 at [facility] at 11/29 was not treated with Remdesivivr ( was not hypoxic and not intubated) evaluated by bioethics -> DNR/DNI status appropriate Condition: critical IV Access: PICC - LUE PICC intact EKG Rhythm: Atrial Fibrillation - with tachycardia FI02: 40 Vent Support Breath Rate: 18 Vent Support Mode: AC Vent Tidal Volume: 600 Sputum Amount: Moderate PEEP: 5.0 PIP: 55 Drips: Fentanyl 200 mcg/hr Tube Feeding Amount: 40 I&O: Intake and Output 12/29/19 12/30/19 19:00 07:00 Intake Total 2106 ml 650 ml Output Total 1900 ml 1020 ml Balance 206 ml -370 ml Free Water 60 ml 30 ml IV Total 1566 ml 180 ml Tube Feeding 480 ml 440 ml Output Urine Total 1900 ml 1020 ml CXR: 12/27 Unchanged layering right pleural effusion with associated basilar airspace opacities. Likely retrocardiac consolidation, unchanged. No apical pneumothoraces. Unchanged enteric and endotracheal tubes. Unchanged left PICC. ET-Tube: 7.5 ET Position: 24 Colt Keen MD 12/30/19 1355: Critical Care - Asmt/Plan Assessment/Plan: Patient seen and examined with BIT SHARPENER OPERATOR and I agree with the above formulated assessment and plan. -ok to d/c remdesivir after 5th dose today if ok with ID -monitor volumes, continue diuresis -SBT if able Time Spent (Minutes): 40 - cc Luz Bowen NP Dec 30, 2019 07:23 Colt Keen MD Dec 30, 2019 13:55
--- NOTE | 2019-12-30 07:30 | NUR ---
HAND-OFF: Report given to NOEL Thompson. Endorsed POC.
--- NOTE | 2019-12-30 07:30 | NUR ---
NURSE NOTES: Received patient from Cathie COHEN. Patient is sedated RASS -2. A. Fib on the heart monitor, HR 97-100. Receiving oxygen via ET tube 7.5 23cm at the gum line, vent settings: AC 18, TV 600, FiO2 40%, PEEP 5. Right Nares NGT is intact and receiving Nepro at 40cc/hr. IV site is Left Upper Arm PICC at 200mcg/hr. Lockett catheter is intact and draining. Bed is locked, placed in lowest position, side rails up x3, bed alarm on, head of bed elevated. Will continue to monitor. Addendum: 12/30/19 at 1840 by Evaristo Vtiale RN NURSE NOTES: Received patient from Shanta COHEN. Patient is sedated RASS -2. A. Fib on the heart monitor, HR 97-100. Receiving oxygen via ET tube 7.5 23cm at the gum line, vent settings: AC 18, TV 600, FiO2 40%, PEEP 5. Right Nares NGT is intact and receiving Nepro at 40cc/hr. IV site is Left Upper Arm PICC at 200mcg/hr. Lockett catheter is intact and draining. Bed is locked, placed in lowest position, side rails up x3, bed alarm on, head of bed elevated. Will continue to monitor.
[2019-12-30 07:50] LABS: ALBUMIN 2.2 G/DL (3.4-5.0); ALBUMIN/GLOBULIN RATIO 0.4 (1.0-2.7); BILIRUBIN,DIRECT 0.7 MG/DL (0.0-0.3); BILIRUBIN,TOTAL 1.1 MG/DL (0.2-1.0); CALCIUM 8.9 MG/DL (8.5-10.1); CREATININE 1.9 MG/DL (0.55-1.30); POTASSIUM 3.6 MMOL/L (3.5-5.1)
[2019-12-30] MEDS: Micafungin 100 MG in NS 110 ML IVPB SCH (08:08)
[2019-12-30] MEDS: dexAMETHasone 10mg/ml Inj IV SCH (08:08)
[2019-12-30] MEDS: Polymyxin B Sulfate 500,000 UNITS in D5W 500ml 550 ML IV SCH ×2 (08:09→20:50)
[2019-12-30] MEDS: Docusate 100mg/10ml Liq NG SCH ×2 (08:10→17:43)
[2019-12-30] MEDS: Metoprolol Tartrate 50mg tab NG SCH ×2 (08:10→20:51)
[2019-12-30] MEDS: Bacitracin Oint 15gm Tube TOPIC SCH ×2 (08:10→17:44)
[2019-12-30] MEDS: Enoxaparin 60mg Inj SUBQ SCH (08:11)
--- NOTE | 2019-12-30 08:20 | NUR ---
NURSE NOTES: Medications given as prescribed, no adverse reaction noted. Patient is afebrile, rectal temperature 98.2. Turned and repositioned patient, oral care given. Will continue to monitor.
--- NOTE | 2019-12-30 09:02 | Diagnostic Imaging Report ---
EXAM: XR Chest, 1 View CLINICAL HISTORY: SOB TECHNIQUE: Frontal view of the chest. COMPARISON: December 28, 2019. FINDINGS: Distal tip of ET tube is above devika. Distal tip of the enteric tube is in stomach. Stable left arm PICC line with distal tip likely in the left subclavian vein. Cardiac silhouette is within normal limits allowing for portable and rotated technique. Low lung volumes with elevated left hemidiaphragm. Again noted is a moderate right effusion with patchy infiltrates in the right mid to lower lung. Probable retrocardiac infiltrates. IMPRESSION: Little interval change in moderate right effusion and pneumonia/aspiration. Suspected retrocardiac infiltrate. The distal tip of the left arm PICC line is not well seen past the level of the left mid subclavian vein. Ashley location is in the cavoatrial junction. Recommend advancement. <MYCVCSECTION> Communications: 12/30/19 09:12 Verify Receipt with Nurse Verified receipt with Jay RN on 12/29 09:12 (-07:00)
--- NOTE | 2019-12-30 09:14 | General Progress Note ---
Subjective ROS Limited/Unobtainable: No Allergies: Coded Allergies: ERYTHROMYCIN BASE (Verified Allergy, Severe, 12/12/19) HALOPERIDOL (Verified Allergy, Unknown, 12/12/19) VANCOMYCIN (Unverified Adverse Reaction, Intermediate, Shortness of Breath, 12/12/19) Objective Last 24 Hour Vital Signs Date Time Temp Pulse Resp B/P (MAP) Pulse Ox O2 Delivery O2 Flow Rate FiO2 12/30/19 08:10 103 147/58 12/30/19 07:20 18 147/58 Mechanical Ventilator 40 12/30/19 07:00 103 18 135/114 (121) 97 12/30/19 07:00 18 135/114 40 12/30/19 06:45 101 24 40 12/30/19 06:00 18 147/58 Mechanical Ventilator 40 12/30/19 06:00 102 24 158/67 (97) 99 12/30/19 05:08 108 175/82 12/30/19 05:00 21 175/82 Mechanical Ventilator 40 12/30/19 05:00 119 24 173/92 (119) 99 12/30/19 04:08 22 167/77 Mechanical Ventilator 40 12/30/19 04:00 121 12/30/19 04:00 Mechanical Ventilator 12/30/19 04:00 40 12/30/19 04:00 20 167/77 Mechanical Ventilator 40 12/30/19 04:00 121 20 167/77 (107) 87 12/30/19 03:23 71 18 40 12/30/19 03:00 113 18 146/122 (130) 95 12/30/19 03:00 18 146/122 40 12/30/19 02:00 26 176/125 Mechanical Ventilator 40 12/30/19 02:00 110 26 176/125 (142) 97 12/30/19 01:00 98 18 150/83 (105) 99 12/30/19 01:00 18 150/83 Mechanical Ventilator 40 12/30/19 00:00 71 12/30/19 00:00 13 123/66 Mechanical Ventilator 40 12/30/19 00:00 98.7 71 13 123/66 (85) 100 12/30/19 00:00 Mechanical Ventilator 12/30/19 00:00 40 12/29/19 23:00 83 6 157/92 (113) 100 12/29/19 23:00 16 157/92 40 12/29/19 22:55 90 18 40 12/29/19 22:54 108 186/102 12/29/19 22:00 18 179/138 Mechanical Ventilator 40 12/29/19 22:00 110 18 179/138 (152) 99 12/29/19 21:00 Mechanical Ventilator 12/29/19 21:00 78 12 141/92 (108) 94 12/29/19 21:00 12 141/92 Mechanical Ventilator 40 12/29/19 20:49 150/85 12/29/19 20:00 16 147/91 Mechanical Ventilator 40 12/29/19 20:00 58 16 147/91 (109) 100 12/29/19 19:30 52 18 40 12/29/19 19:00 53 12 129/70 (89) 98 12/29/19 19:00 15 136/76 Mechanical Ventilator 40 12/29/19 18:00 19 124/74 Mechanical Ventilator 40 12/29/19 18:00 55 18 124/74 (91) 98 12/29/19 17:39 85 152/84 12/29/19 17:00 125 21 129/84 (99) 99 12/29/19 17:00 18 129/89 Mechanical Ventilator 40 12/29/19 16:00 40 12/29/19 16:00 Mechanical Ventilator 12/29/19 16:00 18 129/102 Mechanical Ventilator 40 12/29/19 16:00 55 12/29/19 16:00 65 18 159/96 (117) 97 12/29/19 15:29 64 18 40 12/29/19 15:00 51 18 138/66 (90) 94 12/29/19 14:00 18 141/91 Mechanical Ventilator 40 12/29/19 14:00 71 18 141/91 (108) 89 12/29/19 13:00 98.5 80 18 148/85 (106) 99 12/29/19 13:00 21 127/99 40 12/29/19 12:20 116 144/96 12/29/19 12:00 Mechanical Ventilator 12/29/19 12:00 40 12/29/19 12:00 104 19 153/96 (115) 98 12/29/19 12:00 104 12/29/19 12:00 20 131/88 Mechanical Ventilator 40 12/29/19 11:28 113 19 40 12/29/19 11:00 20 131/88 Mechanical Ventilator 40 12/29/19 11:00 97 16 114/94 (101) 96 12/29/19 10:00 18 155/81 Mechanical Ventilator 40 12/29/19 10:00 92 15 131/88 (102) 100 Intake and Output 12/29/19 12/30/19 19:00 07:00 Intake Total 2106 ml 747.3 ml Output Total 1900 ml 1070 ml Balance 206 ml -322.7 ml Free Water 60 ml 30 ml IV Total 1566 ml 237.3 ml Tube Feeding 480 ml 480 ml Output Urine Total 1900 ml 1070 ml # Bowel Movements 1 Laboratory Tests 12/30/19 05:50: White Blood Count 6.5, Red Blood Count 3.17L, Hemoglobin 8.9L, Hematocrit 28.2L, Mean Corpuscular Volume 89, Mean Corpuscular Hemoglobin 28.0, Mean Corpuscular Hemoglobin Concent 31.5L, Red Cell Distribution Width 20.1H, Platelet Count 106L , Mean Platelet Volume 8.5, Neutrophils (%) (Auto) , Lymphocytes (%) (Auto) , Monocytes (%) (Auto) , Eosinophils (%) (Auto) , Basophils (%) (Auto) , Differential Total Cells Counted 100, Neutrophils % (Manual) 96H, Lymphocytes % (Manual) 2L, Monocytes % (Manual) 2, Eosinophils % (Manual) 0, Basophils % (Manual) 0, Band Neutrophils 0, Platelet Estimate DecreasedL, Platelet Morphology Normal, Polychromasia 2+, Hypochromasia 1+, Anisocytosis 2+, Sodium Level 144, Potassium Level 3.6, Chloride Level 102, Carbon Dioxide Level 31, Anion Gap 11, Blood Urea Nitrogen 83H, Creatinine 1.9H, Estimat Glomerular Filtration Rate 26.3, Glucose Level 133H, Calcium Level 8.9, Ferritin 503H, Total Bilirubin 1.1H, Direct Bilirubin 0.7H, Aspartate Amino Transf (AST/SGOT) 29, Alanine Aminotransferase (ALT/SGPT) 24, Alkaline Phosphatase 94, C-Reactive Protein, Quantitative 11.8H, Total Protein 7.5, Albumin 2.2L, Globulin 5.3, Albumin/Globulin Ratio 0.4L 12/30/19 08:15: Arterial Blood pH 7.350, Arterial Blood Partial Pressure CO2 56.2*H, Arterial Blood Partial Pressure O2 85.4, Arterial Blood HCO3 30.3H, Arterial Blood Oxygen Saturation 94.7L, Arterial Blood Base Excess 3.9H, Eugene Test Positive Height (Feet): 5 Height (Inches): 6.00 Weight (Pounds): 298 General Appearance: lethargic EENT: normal ENT inspection Neck: supple Cardiovascular: normal rate Respiratory/Chest: decreased breath sounds Abdomen: normal bowel sounds, non tender, soft Extremities: non-tender Assessment/Plan Problem List: (1) CKD (chronic kidney disease) stage 3, GFR 30-59 ml/min ICD Codes: N18.3 - Chronic kidney disease, stage 3 (moderate) SNOMED: 228445100 (2) COPD (chronic obstructive pulmonary disease) ICD Codes: J44.9 - Chronic obstructive pulmonary disease, unspecified SNOMED: 07554214 (3) Smoker ICD Codes: F17.200 - Nicotine dependence, unspecified, uncomplicated SNOMED: 22043076 (4) GERD (gastroesophageal reflux disease) ICD Codes: K21.9 - Gastro-esophageal reflux disease without esophagitis SNOMED: 782444367 (5) Atrial fibrillation with RVR ICD Codes: I48.91 - Unspecified atrial fibrillation SNOMED: 993070739585787 Status: stable Assessment/Plan: ngtf pepcid fu H&H monitor labs bowel regimen fu labs fu cardiology recs icu care pending bioethic consult Mervin Victoria MD Dec 30, 2019 09:14
--- NOTE | 2019-12-30 09:17 | General Progress Note ---
Subjective ROS Limited/Unobtainable: Yes Allergies: Coded Allergies: ERYTHROMYCIN BASE (Verified Allergy, Severe, 12/12/19) HALOPERIDOL (Verified Allergy, Unknown, 12/12/19) VANCOMYCIN (Unverified Adverse Reaction, Intermediate, Shortness of Breath, 12/12/19) Objective Last 24 Hour Vital Signs Date Time Temp Pulse Resp B/P (MAP) Pulse Ox O2 Delivery O2 Flow Rate FiO2 12/30/19 08:10 103 147/58 12/30/19 07:20 18 147/58 Mechanical Ventilator 40 12/30/19 07:00 103 18 135/114 (121) 97 12/30/19 07:00 18 135/114 40 12/30/19 06:45 101 24 40 12/30/19 06:00 18 147/58 Mechanical Ventilator 40 12/30/19 06:00 102 24 158/67 (97) 99 12/30/19 05:08 108 175/82 12/30/19 05:00 21 175/82 Mechanical Ventilator 40 12/30/19 05:00 119 24 173/92 (119) 99 12/30/19 04:08 22 167/77 Mechanical Ventilator 40 12/30/19 04:00 121 12/30/19 04:00 Mechanical Ventilator 12/30/19 04:00 40 12/30/19 04:00 20 167/77 Mechanical Ventilator 40 12/30/19 04:00 121 20 167/77 (107) 87 12/30/19 03:23 71 18 40 12/30/19 03:00 113 18 146/122 (130) 95 12/30/19 03:00 18 146/122 40 12/30/19 02:00 26 176/125 Mechanical Ventilator 40 12/30/19 02:00 110 26 176/125 (142) 97 12/30/19 01:00 98 18 150/83 (105) 99 12/30/19 01:00 18 150/83 Mechanical Ventilator 40 12/30/19 00:00 71 12/30/19 00:00 13 123/66 Mechanical Ventilator 40 12/30/19 00:00 98.7 71 13 123/66 (85) 100 12/30/19 00:00 Mechanical Ventilator 12/30/19 00:00 40 12/29/19 23:00 83 6 157/92 (113) 100 12/29/19 23:00 16 157/92 40 12/29/19 22:55 90 18 40 12/29/19 22:54 108 186/102 12/29/19 22:00 18 179/138 Mechanical Ventilator 40 12/29/19 22:00 110 18 179/138 (152) 99 12/29/19 21:00 Mechanical Ventilator 12/29/19 21:00 78 12 141/92 (108) 94 12/29/19 21:00 12 141/92 Mechanical Ventilator 40 12/29/19 20:49 150/85 12/29/19 20:00 16 147/91 Mechanical Ventilator 40 12/29/19 20:00 58 16 147/91 (109) 100 12/29/19 19:30 52 18 40 12/29/19 19:00 53 12 129/70 (89) 98 12/29/19 19:00 15 136/76 Mechanical Ventilator 40 12/29/19 18:00 19 124/74 Mechanical Ventilator 40 12/29/19 18:00 55 18 124/74 (91) 98 12/29/19 17:39 85 152/84 12/29/19 17:00 125 21 129/84 (99) 99 12/29/19 17:00 18 129/89 Mechanical Ventilator 40 12/29/19 16:00 40 12/29/19 16:00 Mechanical Ventilator 12/29/19 16:00 18 129/102 Mechanical Ventilator 40 12/29/19 16:00 55 12/29/19 16:00 65 18 159/96 (117) 97 12/29/19 15:29 64 18 40 12/29/19 15:00 51 18 138/66 (90) 94 12/29/19 14:00 18 141/91 Mechanical Ventilator 40 12/29/19 14:00 71 18 141/91 (108) 89 12/29/19 13:00 98.5 80 18 148/85 (106) 99 12/29/19 13:00 21 127/99 40 12/29/19 12:20 116 144/96 12/29/19 12:00 Mechanical Ventilator 12/29/19 12:00 40 12/29/19 12:00 104 19 153/96 (115) 98 12/29/19 12:00 104 12/29/19 12:00 20 131/88 Mechanical Ventilator 40 12/29/19 11:28 113 19 40 12/29/19 11:00 20 131/88 Mechanical Ventilator 40 12/29/19 11:00 97 16 114/94 (101) 96 12/29/19 10:00 18 155/81 Mechanical Ventilator 40 12/29/19 10:00 92 15 131/88 (102) 100 Intake and Output 12/29/19 12/30/19 19:00 07:00 Intake Total 2106 ml 747.3 ml Output Total 1900 ml 1070 ml Balance 206 ml -322.7 ml Free Water 60 ml 30 ml IV Total 1566 ml 237.3 ml Tube Feeding 480 ml 480 ml Output Urine Total 1900 ml 1070 ml # Bowel Movements 1 Laboratory Tests 12/30/19 05:50: White Blood Count 6.5, Red Blood Count 3.17L, Hemoglobin 8.9L, Hematocrit 28.2L, Mean Corpuscular Volume 89, Mean Corpuscular Hemoglobin 28.0, Mean Corpuscular Hemoglobin Concent 31.5L, Red Cell Distribution Width 20.1H, Platelet Count 106L , Mean Platelet Volume 8.5, Neutrophils (%) (Auto) , Lymphocytes (%) (Auto) , Monocytes (%) (Auto) , Eosinophils (%) (Auto) , Basophils (%) (Auto) , Differential Total Cells Counted 100, Neutrophils % (Manual) 96H, Lymphocytes % (Manual) 2L, Monocytes % (Manual) 2, Eosinophils % (Manual) 0, Basophils % (Manual) 0, Band Neutrophils 0, Platelet Estimate DecreasedL, Platelet Morphology Normal, Polychromasia 2+, Hypochromasia 1+, Anisocytosis 2+, Sodium Level 144, Potassium Level 3.6, Chloride Level 102, Carbon Dioxide Level 31, Anion Gap 11, Blood Urea Nitrogen 83H, Creatinine 1.9H, Estimat Glomerular Filtration Rate 26.3, Glucose Level 133H, Calcium Level 8.9, Ferritin 503H, Total Bilirubin 1.1H, Direct Bilirubin 0.7H, Aspartate Amino Transf (AST/SGOT) 29, Alanine Aminotransferase (ALT/SGPT) 24, Alkaline Phosphatase 94, C-Reactive Protein, Quantitative 11.8H, Total Protein 7.5, Albumin 2.2L, Globulin 5.3, Albumin/Globulin Ratio 0.4L 12/30/19 08:15: Arterial Blood pH 7.350, Arterial Blood Partial Pressure CO2 56.2*H, Arterial Blood Partial Pressure O2 85.4, Arterial Blood HCO3 30.3H, Arterial Blood Oxygen Saturation 94.7L, Arterial Blood Base Excess 3.9H, Eugene Test Positive Height (Feet): 5 Height (Inches): 6.00 Weight (Pounds): 298 General Appearance: morbidly obese, other - intubated, sedated Cardiovascular: regularly irregular Respiratory/Chest: rhonchi - bilaterally Abdomen: non tender Edema: moderate edema Neurologic: unresponsive Skin: other - hematoma rle Assessment/Plan Problem List: (1) Schizophrenia ICD Codes: F20.9 - Schizophrenia, unspecified SNOMED: 34987650 (2) GERD (gastroesophageal reflux disease) ICD Codes: K21.9 - Gastro-esophageal reflux disease without esophagitis SNOMED: 357180684 (3) Lymphadema (4) Smoker ICD Codes: F17.200 - Nicotine dependence, unspecified, uncomplicated SNOMED: 00692580 (5) Atrial fibrillation with rapid ventricular response ICD Codes: I48.91 - Unspecified atrial fibrillation SNOMED: 546209477602813 (6) CKD (chronic kidney disease) stage 3, GFR 30-59 ml/min ICD Codes: N18.3 - Chronic kidney disease, stage 3 (moderate) SNOMED: 296873124 (7) NATALIE (acute kidney injury) ICD Codes: N17.9 - Acute kidney failure, unspecified SNOMED: 1011987, 68954052 (8) COPD (chronic obstructive pulmonary disease) ICD Codes: J44.9 - Chronic obstructive pulmonary disease, unspecified SNOMED: 59675249 (9) UGI bleed ICD Codes: K92.2 - Gastrointestinal hemorrhage, unspecified SNOMED: 27142321 (10) Dysphagia ICD Codes: R13.10 - Dysphagia, unspecified SNOMED: 61207848, 504704022 (11) UTI (urinary tract infection) ICD Codes: N39.0 - Urinary tract infection, site not specified SNOMED: 42487235 (12) ESBL (extended spectrum beta-lactamase) producing bacteria infection ICD Codes: A49.9 - Bacterial infection, unspecified; Z16.12 - Extended spectrum beta lactamase (ESBL) resistance SNOMED: 836226871 (13) Dehydration ICD Codes: E86.0 - Dehydration SNOMED: 94754471 (14) CHF exacerbation ICD Codes: I50.9 - Heart failure, unspecified SNOMED: 807253802, 63112479870134 (15) Acute respiratory failure ICD Codes: J96.00 - Acute respiratory failure, unspecified whether with hypoxia or hypercapnia SNOMED: 60451471 (16) COVID-19 ICD Codes: U07.1 - COVID-19 SNOMED: 462225423 (17) Pneumonia ICD Codes: J18.9 - Pneumonia, unspecified organism SNOMED: 885620615 Qualifiers: (18) Hematoma of lower leg ICD Codes: S80.10XA - Contusion of unspecified lower leg, initial encounter SNOMED: 490536841 (19) CKD (chronic kidney disease) stage 3, GFR 30-59 ml/min ICD Codes: N18.3 - Chronic kidney disease, stage 3 (moderate) SNOMED: 140111265 Status: stable Assessment/Plan: resp distress, icu, now intubated, worse natalie,,now stable, I/O, ,+hematoma RLE stop eliquis ancd asa, lovenox now iv protonix, rx esbl and + vre uti,g+ cocci linezolid , remains high risk, psychotic and hallucinating d/w psych, ID, cardiology, chf wourse and increase lasix ,covid neg prior now +, grave p rognosis, fungemia on micafungin likely will be unable to wean for a long time, icu time 35 min Benjamin Dumont MD Dec 30, 2019 09:17
--- NOTE | 2019-12-30 10:11 | NUR ---
NURSE NOTES: Reported ABG results to Dr. Keen.
--- NOTE | 2019-12-30 10:14 | NUR ---
NURSE NOTES: Repositioned patient and changed beddings with [employer]ER [employer].
--- NOTE | 2019-12-30 13:15 | Surgery Progress Note ---
Surgery Progress Note Subjective Additional Comments picc noted cxr reviewed Objective Last 24 Hour Vital Signs Date Time Temp Pulse Resp B/P (MAP) Pulse Ox O2 Delivery O2 Flow Rate FiO2 12/30/19 12:00 98.3 70 18 127/72 (90) 100 12/30/19 12:00 Mechanical Ventilator 12/30/19 12:00 40 12/30/19 11:54 70 129/103 12/30/19 11:00 70 18 129/103 (112) 100 12/30/19 10:56 80 19 45 12/30/19 10:00 112 21 129/103 (112) 84 12/30/19 09:00 105 19 141/66 (91) 96 12/30/19 08:10 103 147/58 12/30/19 08:07 119 12/30/19 08:00 98.2 115 19 158/70 (99) 94 12/30/19 08:00 40 12/30/19 08:00 Mechanical Ventilator 12/30/19 07:20 18 147/58 Mechanical Ventilator 40 12/30/19 07:00 103 18 135/114 (121) 97 12/30/19 07:00 18 135/114 40 12/30/19 06:45 101 24 40 12/30/19 06:00 18 147/58 Mechanical Ventilator 40 12/30/19 06:00 102 24 158/67 (97) 99 12/30/19 05:08 108 175/82 12/30/19 05:00 21 175/82 Mechanical Ventilator 40 12/30/19 05:00 119 24 173/92 (119) 99 12/30/19 04:08 22 167/77 Mechanical Ventilator 40 12/30/19 04:00 121 12/30/19 04:00 Mechanical Ventilator 12/30/19 04:00 40 12/30/19 04:00 20 167/77 Mechanical Ventilator 40 12/30/19 04:00 121 20 167/77 (107) 87 12/30/19 03:23 71 18 40 12/30/19 03:00 113 18 146/122 (130) 95 12/30/19 03:00 18 146/122 40 12/30/19 02:00 26 176/125 Mechanical Ventilator 40 12/30/19 02:00 110 26 176/125 (142) 97 12/30/19 01:00 98 18 150/83 (105) 99 12/30/19 01:00 18 150/83 Mechanical Ventilator 40 12/30/19 00:00 71 12/30/19 00:00 13 123/66 Mechanical Ventilator 40 12/30/19 00:00 98.7 71 13 123/66 (85) 100 12/30/19 00:00 Mechanical Ventilator 12/30/19 00:00 40 12/29/19 23:00 83 6 157/92 (113) 100 12/29/19 23:00 16 157/92 40 12/29/19 22:55 90 18 40 12/29/19 22:54 108 186/102 12/29/19 22:00 18 179/138 Mechanical Ventilator 40 12/29/19 22:00 110 18 179/138 (152) 99 12/29/19 21:00 Mechanical Ventilator 12/29/19 21:00 78 12 141/92 (108) 94 12/29/19 21:00 12 141/92 Mechanical Ventilator 40 12/29/19 20:49 150/85 12/29/19 20:00 16 147/91 Mechanical Ventilator 40 12/29/19 20:00 58 16 147/91 (109) 100 12/29/19 19:30 52 18 40 12/29/19 19:00 53 12 129/70 (89) 98 12/29/19 19:00 15 136/76 Mechanical Ventilator 40 12/29/19 18:00 19 124/74 Mechanical Ventilator 40 12/29/19 18:00 55 18 124/74 (91) 98 12/29/19 17:39 85 152/84 12/29/19 17:00 125 21 129/84 (99) 99 12/29/19 17:00 18 129/89 Mechanical Ventilator 40 12/29/19 16:00 40 12/29/19 16:00 Mechanical Ventilator 12/29/19 16:00 18 129/102 Mechanical Ventilator 40 12/29/19 16:00 55 12/29/19 16:00 65 18 159/96 (117) 97 12/29/19 15:29 64 18 40 12/29/19 15:00 51 18 138/66 (90) 94 12/29/19 14:00 18 141/91 Mechanical Ventilator 40 12/29/19 14:00 71 18 141/91 (108) 89 I&O Intake and Output0 12/29/19 12/30/19 19:00 07:00 Intake Total 2106 ml 747.3 ml Output Total 1900 ml 1070 ml Balance 206 ml -322.7 ml Free Water 60 ml 30 ml IV Total 1566 ml 237.3 ml Tube Feeding 480 ml 480 ml Output Urine Total 1900 ml 1070 ml # Bowel Movements 1 Dressing: saturated Cardiovascular: RSR Respiratory: decreased breath sounds Abdomen: soft, non-tender, present bowel sounds Extremities: edema Laboratory Tests Test 12/30/19 05:50 12/30/19 08:15 White Blood Count 6.5 K/UL (4.8-10.8) Red Blood Count 3.17 M/UL (4.20-5.40) L Hemoglobin 8.9 G/DL (12.0-16.0) L Hematocrit 28.2 % (37.0-47.0) L Mean Corpuscular Volume 89 FL (80-99) Mean Corpuscular Hemoglobin 28.0 PG (27.0-31.0) Mean Corpuscular Hemoglobin Concent 31.5 G/DL (32.0-36.0) L Red Cell Distribution Width 20.1 % (11.6-14.8) H Platelet Count 106 K/UL (150-450) L Mean Platelet Volume 8.5 FL (6.5-10.1) Neutrophils (%) (Auto) % (45.0-75.0) Lymphocytes (%) (Auto) % (20.0-45.0) Monocytes (%) (Auto) % (1.0-10.0) Eosinophils (%) (Auto) % (0.0-3.0) Basophils (%) (Auto) % (0.0-2.0) Differential Total Cells Counted 100 Neutrophils % (Manual) 96 % (45-75) H Lymphocytes % (Manual) 2 % (20-45) L Monocytes % (Manual) 2 % (1-10) Eosinophils % (Manual) 0 % (0-3) Basophils % (Manual) 0 % (0-2) Band Neutrophils 0 % (0-8) Platelet Estimate Decreased L Platelet Morphology Normal Polychromasia 2+ Hypochromasia 1+ Anisocytosis 2+ Sodium Level 144 MMOL/L (136-145) Potassium Level 3.6 MMOL/L (3.5-5.1) Chloride Level 102 MMOL/L (98-107) Carbon Dioxide Level 31 MMOL/L (21-32) Anion Gap 11 mmol/L (5-15) Blood Urea Nitrogen 83 mg/dL (7-18) H Creatinine 1.9 MG/DL (0.55-1.30) H Estimat Glomerular Filtration Rate 26.3 mL/min (>60) Glucose Level 133 MG/DL (74-106) H Calcium Level 8.9 MG/DL (8.5-10.1) Ferritin 503 NG/ML (8-388) H Total Bilirubin 1.1 MG/DL (0.2-1.0) H Direct Bilirubin 0.7 MG/DL (0.0-0.3) H Aspartate Amino Transf (AST/SGOT) 29 U/L (15-37) Alanine Aminotransferase (ALT/SGPT) 24 U/L (12-78) Alkaline Phosphatase 94 U/L (46-116) C-Reactive Protein, Quantitative 11.8 mg/dL (0.00-0.90) H Total Protein 7.5 G/DL (6.4-8.2) Albumin 2.2 G/DL (3.4-5.0) L Globulin 5.3 g/dL Albumin/Globulin Ratio 0.4 (1.0-2.7) L Arterial Blood pH 7.350 (7.350-7.450) Arterial Blood Partial Pressure CO2 56.2 mmHg (35.0-45.0) *H Arterial Blood Partial Pressure O2 85.4 mmHg (75.0-100.0) Arterial Blood HCO3 30.3 mmol/L (22.0-26.0) H Arterial Blood Oxygen Saturation 94.7 % (95-100) L Arterial Blood Base Excess 3.9 (-2-2) H Eugene Test Positive Plan Problems: (1) Urinary tract infection (2) CHF exacerbation (3) History of schizophrenia (4) Atrial fibrillation with RVR (5) Schizophrenia (6) GERD (gastroesophageal reflux disease) (7) Smoker (8) Atrial fibrillation with rapid ventricular response (9) Lymphadema (10) COPD (chronic obstructive pulmonary disease) (11) CKD (chronic kidney disease) stage 3, GFR 30-59 ml/min (12) NATALIE (acute kidney injury) (13) Dehydration (14) Dysphagia (15) UTI (urinary tract infection) (16) UGI bleed (17) ESBL (extended spectrum beta-lactamase) producing bacteria infection (18) Constipation (19) Lactic acidosis (20) Tinea cruris (21) Onychomycosis (22) Emesis (23) Essential hypertension (24) Anemia (25) Cough (26) Depression (27) Depression (28) Edema (29) Rash (30) Opiate dependence (31) Opiate dependence (32) Opiate dependence (33) Opiate dependence (34) Pyelonephritis (35) Sepsis (36) UTI (urinary tract infection) (37) Nausea and vomiting (38) Abdominal pain Assessment & Plan: [age]-year-old female obese white abdominal pain deep tissue injury identified limited mobility on HD. KUB noted tube in place continue meds feeds Does not seem obstructed We will monitor FINDINGS: Lower thorax: Obscuration of the left costophrenic angle suggestive of pleural effusion. Intraperitoneal space: No free air. Gastrointestinal tract: Unremarkable. No dilation. Bones/joints: Unremarkable. Tubes, lines and devices: The nasogastric tube has the tip at the mid inferior aspect of the gastric body. Other findings: Nonspecific gas pattern. Single frontal view of the abdomen demonstrates tip of the enteric tube and distal side-port projecting over the stomach. Gas is identified within the nondistended large bowel. There is a paucity of small bowel gas seen. Partially visualized left pleural effusion. No other significant interval change. (39) Chest pain (40) Chest pain (41) Nausea (42) Obesity (43) Chronic ulcer of leg (44) Chronic ulcer of leg (45) Chronic ulcer of leg (46) ACS (acute coronary syndrome) (47) Acute chest pain (48) Encounter for dressing change or suture removal (49) Left leg cellulitis (50) Acute encephalopathy (51) Encounter for wound re-check (52) Intractable nausea and vomiting (53) Infection due to ESBL-producing Escherichia coli (54) Chronic venous stasis (55) Change of dressing (56) Change of dressing (57) Change of dressing (58) Change of dressing (59) Change of dressing (60) Change of dressing (61) Change of dressing (62) Change of dressing (63) ESBL urine (64) Lymphadema (65) Lymphedema (66) Lymphedema (67) Lymphedema (68) Lymphedema (69) Lymphedema (70) Lymphedema (71) Lymphedema (72) Lymphedema (73) Open wound of foot (74) Open wound of foot (75) cellulitis (76) chronic lymphedema (77) chronic lymphedema (78) chronic lymphedema (79) hypertension uncontrolled (80) hypertension uncontrolled (81) Intertrigo (82) Sciatica (83) Cellulitis (84) Schizophrenia (85) Chronic bronchitis (86) HTN (hypertension) (87) Venous stasis ulcers (88) Medication refill (89) Chest pain, atypical (90) BMI 45.0-49.9, adult (91) Lymphedema of both lower extremities (92) hypertension uncontrolled (93) hypertension uncontrolled (94) hypertension uncontrolled (95) tenia corpus (96) Deep tissue injury Assessment & Plan: Morbidly obese pt whom presented on admission with Pressure injuries, Edemae bilat lower extremities eschar to dorsal aspects of metatarsals. Pt is very demanding of staff and can be resistive to repositioning. DTPI noted to L Sacrum(L)5.5cm x (W)2.5cm. Base of Pressure Injury is Maroon and indurated with surrounding non-blanchable erythema DTPI R Sacrum(L)5.5cm x (W)2.3cm. Base of Pressure Injury is maroon with purpuric center that is fluctuant. Pt complained of tenderness when minimally palpated. Bilat lower extremities are edematous . Dry eschar noted to nail matrix and tip of L 1st metatarsal, Dorsal L 2nd metatarsal, R 2nd and R 4th metatarsals. Both heels are boggy with non-Blanchable erythema. blisters forming on Right lower extremity anterior tibia. not infected cellulitis / edema on b/l le stable cont abx Tx.Plan: Apply Moisture Barrier Paste to Sacrum R and L gluteal cheeks. Cover with Optifoam drsgs. Change every 3 days and prn. Apply Betadine to dry eschar metatarsals both feet Daily. Apply Cavilon Skin Barrier to both heels. Cover each heel with Optifoam drsgs. Change every 7days and prn. Reposition at least every 2hours or as tolerated. Off-load heels with pillow. right leg hematoma stable critically ill and edema on right leg has compromised dermis over the hematoma. will likely need debridement once improved (97) COVID-19 Assessment & Plan: ++ on vent weaning abx as per ID (98) Respiratory failure (99) Pneumonia Juan Manuel Buckner Dec 30, 2019 13:15
[2019-12-30] MEDS: REMDESIVIR IV SCH ×2 (14:09)
[2019-12-30] MEDS: [UNRECOGNIZED DRUG - OTHER] IV SCH ×2 (14:09)
--- NOTE | 2019-12-30 18:12 | NUR ---
NURSE NOTES: Bed bath given to patient, turned and repositioned. Patient is afebrile, oral care done. Will continue to monitor.
--- NOTE | 2019-12-30 19:18 | NUR ---
NURSE HAND-OFF REPORT: Latest Vital Signs: Temperature 98.1 , Pulse 104 , B/P 128 /62 , Respiratory Rate 22 , O2 SAT 92 , Endotracheal Tube, O2 Flow Rate . Vital Sign Comment: EKG Rhythm: Atrial Fibrillation Rhythm change?: N Notified?: Elizabeth -MD Gaviota UNDERWOOD Response: Latest Abreu Fall Score: 75 Fall Risk: High Risk Safety Measures: Call light Within Reach, Bed Alarm Zone 2, Side Rails Side Rails x3, Bed position Low and Locked. Fall Precautions: Yellow Socks Report given to Pebbles COHEN.
--- NOTE | 2019-12-30 19:30 | NUR ---
NURSE NOTES: Received pt with eyes close but severely restless when stimulated. Orally intubated on ac mode with 40% fio2 02 sat >95%. Afib on the monitor controlled rate bp stable afebrile, bilateral soft wrist restraints on for safety to avoid self extubation. Tolerated Ngt fdg at 40ml/hr with acceptable residuals HOB kept elevated. On aspiration precaution. Lockett to gravity with yellowish urine, lg in amt. Pt with pressure sores pls see pictures . all are covered with optifoam clean and dry. Pt also has RT leg cellulitis vs gangrene. with tx applied. On p200 mattress. Turned to sides for comfort and to avoid further developement of pressure sores. Currently pt been sedated with Fentanyl drip at 200 /mcg/min for goal RaSS score -2. All IVF been infusing to MARBELLA PICC line. Site with drsg dry and intact.Will continue to monitor.
[2019-12-30] MEDS: Dyna-Hex 2% Top Sol 2oz TOPIC SCH (20:16)
[2019-12-30] MEDS: Miralax 17gm pkt NG SCH (20:51)
--- NOTE | 2019-12-30 21:30 | NUR ---
NURSE NOTES: Turned to sides with good skin care done. Suctioned tn tk beige secretions moderate in amt. HOB kept elevated. watch for any resp. distress.
--- NOTE | 2019-12-30 23:30 | NUR ---
NURSE NOTES: Afib on the monitor at controlled rate. Bp stable afebrile.
[2019-12-31] VITALS (33 sets, daily range): BP systolic 51–144; BP diastolic 34–93
--- NOTE | 2019-12-31 | NUR ---
NURSE NOTES: Accucheck 142mg/dl with coverage pls see emar.
[2019-12-31] MEDS: dilTIAZem HCl 90mg tab NG SCH ×5 (00:11→23:36)
--- NOTE | 2019-12-31 00:39 | NUR ---
NURSE NOTES: Thorazine 50mg IM was given to left Deltoid area due to severe agitation
--- NOTE | 2019-12-31 02:03 | Cardiology Progress Note ---
Subjective DATE OF SERVICE: Dec 30, 2019 Doing poorly - remains in ICU in critical condition with guarded prognosis. BP range has stabilized Remains COVID19 positive. Monitor: AFIb Persisting respiratory acidosis req'd intubation and mech ventilation - remains far from weaning. Had coffee ground material in NGTube and hematoma on right leg; anti-coagulation discont'd Venous Duplex: negative for DVT Renal fxn and free water deficit correcting CXR (12/30/19) Persisting right infiltrate and moderate effusion Objective Last 24 Hour Vital Signs Date Time Temp Pulse Resp B/P (MAP) Pulse Ox O2 Delivery O2 Flow Rate FiO2 12/31/19 01:00 72 5 93/54 (67) 100 12/31/19 00:11 77 114/47 12/31/19 00:00 99.0 71 18 114/47 (69) 99 12/31/19 00:00 Mechanical Ventilator 12/31/19 00:00 40 12/31/19 00:00 90 12/30/19 23:39 94 22 45 12/30/19 23:00 76 18 106/59 (75) 99 12/30/19 22:00 73 18 113/62 (79) 99 12/30/19 21:00 102 19 133/55 (81) 99 12/30/19 20:51 98 148/74 12/30/19 20:00 98.7 88 11 151/79 (103) 99 12/30/19 20:00 Mechanical Ventilator 12/30/19 19:12 104 22 45 12/30/19 19:00 105 17 128/62 (84) 92 12/30/19 18:31 14 125/56 Endotracheal Tube 40 12/30/19 18:00 123 20 121/67 (85) 100 12/30/19 17:43 124 159/68 12/30/19 17:31 18 159/68 Endotracheal Tube 40 12/30/19 17:00 98.1 108 16 145/84 (104) 98 12/30/19 16:31 22 129/79 Endotracheal Tube 40.0 40 12/30/19 16:20 22 129/79 Endotracheal Tube 40 12/30/19 16:00 Mechanical Ventilator 12/30/19 16:00 40 12/30/19 16:00 111 20 86/65 (72) 100 12/30/19 16:00 105 9/20/20 15:20 19 129/79 Endotracheal Tube 40 12/30/19 15:03 105 20 45 12/30/19 15:00 112 18 129/69 (89) 100 12/30/19 14:20 18 129/69 Endotracheal Tube 40 12/30/19 14:00 111 21 141/58 (85) 93 12/30/19 13:20 20 148/67 Endotracheal Tube 40 12/30/19 13:00 60 18 103/58 (73) 100 12/30/19 12:20 18 103/58 Endotracheal Tube 40 12/30/19 12:05 76 12/30/19 12:00 98.3 70 18 127/72 (90) 100 12/30/19 12:00 Mechanical Ventilator 12/30/19 12:00 40 12/30/19 11:54 70 129/103 12/30/19 11:20 18 127/72 Endotracheal Tube 40 12/30/19 11:00 70 18 129/103 (112) 100 12/30/19 10:56 80 19 45 12/30/19 10:20 19 127/72 Endotracheal Tube 40 12/30/19 10:00 112 21 129/103 (112) 84 12/30/19 09:20 23 129/103 Endotracheal Tube 40 12/30/19 09:00 105 19 141/66 (91) 96 12/30/19 08:20 19 158/70 Endotracheal Tube 40 12/30/19 08:10 103 147/58 12/30/19 08:07 119 12/30/19 08:00 98.2 115 19 158/70 (99) 94 12/30/19 08:00 40 12/30/19 08:00 Mechanical Ventilator 12/30/19 07:20 18 147/58 Mechanical Ventilator 40 12/30/19 07:00 103 18 135/114 (121) 97 12/30/19 07:00 18 135/114 40 12/30/19 06:45 101 24 40 12/30/19 06:00 18 147/58 Mechanical Ventilator 40 12/30/19 06:00 102 24 158/67 (97) 99 12/30/19 05:08 108 175/82 12/30/19 05:00 21 175/82 Mechanical Ventilator 40 12/30/19 05:00 119 24 173/92 (119) 99 12/30/19 04:08 22 167/77 Mechanical Ventilator 40 12/30/19 04:00 121 12/30/19 04:00 Mechanical Ventilator 12/30/19 04:00 40 12/30/19 04:00 20 Mechanical Ventilator 40 12/30/19 04:00 121 20 (107) 87 12/30/19 03:23 71 18 40 12/30/19 03:00 113 18 146/122 (130) 95 12/30/19 03:00 18 146/122 40 ROS: unchanged from 12/12/19 HEENT: Orally intubated, Mechanically Ventilated, Thin secretions ET Tube, other - NGtube RHYTHM: NSR, ST LUNGS: diminished breath sounds, right-sided rhonchi CARDIAC: normal S1 and S2, irregularly irregular ABDOMEN: other - obese EXTREMITIES: moderate edema - mostly non pitting, other - hematoma right leg Laboratory Tests Test 12/30/19 05:50 12/30/19 08:15 White Blood Count 6.5 K/UL (4.8-10.8) Red Blood Count 3.17 M/UL (4.20-5.40) L Hemoglobin 8.9 G/DL (12.0-16.0) L Hematocrit 28.2 % (37.0-47.0) L Mean Corpuscular Volume 89 FL (80-99) Mean Corpuscular Hemoglobin 28.0 PG (27.0-31.0) Mean Corpuscular Hemoglobin Concent 31.5 G/DL (32.0-36.0) L Red Cell Distribution Width 20.1 % (11.6-14.8) H Platelet Count 106 K/UL (150-450) L Mean Platelet Volume 8.5 FL (6.5-10.1) Neutrophils (%) (Auto) % (45.0-75.0) Lymphocytes (%) (Auto) % (20.0-45.0) Monocytes (%) (Auto) % (1.0-10.0) Eosinophils (%) (Auto) % (0.0-3.0) Basophils (%) (Auto) % (0.0-2.0) Differential Total Cells Counted 100 Neutrophils % (Manual) 96 % (45-75) H Lymphocytes % (Manual) 2 % (20-45) L Monocytes % (Manual) 2 % (1-10) Eosinophils % (Manual) 0 % (0-3) Basophils % (Manual) 0 % (0-2) Band Neutrophils 0 % (0-8) Platelet Estimate Decreased L Platelet Morphology Normal Polychromasia 2+ Hypochromasia 1+ Anisocytosis 2+ Sodium Level 144 MMOL/L (136-145) Potassium Level 3.6 MMOL/L (3.5-5.1) Chloride Level 102 MMOL/L (98-107) Carbon Dioxide Level 31 MMOL/L (21-32) Anion Gap 11 mmol/L (5-15) Blood Urea Nitrogen 83 mg/dL (7-18) H Creatinine 1.9 MG/DL (0.55-1.30) H Estimat Glomerular Filtration Rate 26.3 mL/min (>60) Glucose Level 133 MG/DL (74-106) H Calcium Level 8.9 MG/DL (8.5-10.1) Ferritin 503 NG/ML (8-388) H Total Bilirubin 1.1 MG/DL (0.2-1.0) H Direct Bilirubin 0.7 MG/DL (0.0-0.3) H Aspartate Amino Transf (AST/SGOT) 29 U/L (15-37) Alanine Aminotransferase (ALT/SGPT) 24 U/L (12-78) Alkaline Phosphatase 94 U/L (46-116) C-Reactive Protein, Quantitative 11.8 mg/dL (0.00-0.90) H Total Protein 7.5 G/DL (6.4-8.2) Albumin 2.2 G/DL (3.4-5.0) L Globulin 5.3 g/dL Albumin/Globulin Ratio 0.4 (1.0-2.7) L Arterial Blood pH 7.350 (7.350-7.450) Arterial Blood Partial Pressure CO2 56.2 mmHg (35.0-45.0) *H Arterial Blood Partial Pressure O2 85.4 mmHg (75.0-100.0) Arterial Blood HCO3 30.3 mmol/L (22.0-26.0) H Arterial Blood Oxygen Saturation 94.7 % (95-100) L Arterial Blood Base Excess 3.9 (-2-2) H Eugene Test Positive Assessment/Plan Assessment/Plan CRITICAL AND GUARDED Acute respiratory failure Acute on chronic respiratory acidosis AFiB with labile heart rates CHF, ac/chr diast - compensated BLE edema Sepsis with shock obesity COPD with bronchospasm Acute renal failure - worsening Pleural effusion GI bleeding Acute diastolic CHF Covid 19 PNA Hypokalemia Vent support Monitor acid/base parameters. Antimicrobials Titrate rate-control meds - hold digitalis for elevated levels. Maintain diltiazem and metoprolol. DC apixaban - hold anticoagulation due to GI bleeding. Continued site monitor Diuresis based on clinical parameters; trend BNP May need trach Potassiums suppl Possible thorocentesis per pulmonary Agree with consideration for DNR Jerome Meek MD Dec 31, 2019 02:03
--- NOTE | 2019-12-31 02:30 | NUR ---
NURSE NOTES: Suctioned tn tk beige secretions moderate in amt . Oral care done. Remained sedated with Fentanyl drip to obtain RASS score-2.
[2019-12-31] MEDS: Meropenem 500 MG in NS 55 ML IVPB SCH ×2 (03:50→17:04)
--- NOTE | 2019-12-31 04:30 | NUR ---
NURSE NOTES: Complete bed bath with bed changed was done.
[2019-12-31] MEDS: NovoLOG Insulin Flexpen SUBQ SCH ×4 (06:11→20:31)
--- NOTE | 2019-12-31 06:30 | NUR ---
NURSE NOTES: NGT clogged , flushed with warm water but still with resistant. Reinsert FR 16 NGT. FDG off at this time. til verified with ANGELA
[2019-12-31] MEDS: fentaNYL 2500mcg/NS 250ml 250 ML IV SCH ×2 (06:39→18:35)
--- NOTE | 2019-12-31 06:45 | NUR ---
NURSE NOTES: PICC line MARBELLA seemed to slipped off due to pts sweat. Questionable at this time if its still in placed
--- NOTE | 2019-12-31 06:55 | NUR ---
NURSE NOTES: Endorsed to NOEL Real pts questionable PICC line if its still in place and pts NGT to be verified with KUCarlos
--- NOTE | 2019-12-31 07:14 | NUR ---
NURSE HAND-OFF REPORT: Latest Vital Signs: Temperature 100.3 , Pulse 120 , B/P 111 /75 , Respiratory Rate 19 , O2 SAT 83 , Mechanical Ventilator, O2 Flow Rate . Vital Sign Comment: EKG Rhythm: Atrial Fibrillation Rhythm change?: N Notified?: Elizabeth -MD Gaviota UNDERWOOD Response: Latest Abreu Fall Score: 75 Fall Risk: High Risk Safety Measures: Call light Within Reach, Bed Alarm Zone 2, Side Rails Side Rails x3, Bed position Low and Locked. Fall Precautions: Yellow Socks Report given to Addie COHEN.
[2019-12-31] MEDS ORDERED: Heparin1,000 units/500ml Premix(Conc:2 units/ml) IV PRN (07:15)
[2019-12-31] MEDS ORDERED: Lidocaine 1% Plain 30 ml INJ PRN (07:15)
--- NOTE | 2019-12-31 07:20 | NUR ---
NURSE NOTES: Report received from NOEL Rogel. Pt lying, moving in bed restlessly, in semi-fowlers with no signs of acute distress noted. A+Ox1, with eyes closed, opens eyes to voice. Pt nonverbal and does not follow commands. Per Pebbles, PICC is coming out and might need to be replaced. No blood return. Pt afib on the monitor @ 102. Respirations even and unlabored on mech vent with ETT 7.5, 23 cm @ the lip. Rhonchi heard on auscultation bilaterally. Vent settings AC 18 VT 600, peep of 5, 40% fio2. NG-tube noted, waiting on KUB to start feeding. Patient has sacral DTI, clean and dry, dressed in optifoam. Bilateral leg wounds noted. Pt on p200 mattress. All other vitals stable as documented. Bed at lowest position, brakes engaged, siderails x3, bed alarm on, and call light within reach. Pt at stable condition at this time, will continue to monitor.
--- NOTE | 2019-12-31 07:35 | NUR ---
NURSE NOTES: Dr. Barr and Dr. Buckner at bedside aware of PICC misplacement. Per Dr. Dumont, order insertion with interventional radiology. Left hand 22 g inserted for IV access.
--- NOTE | 2019-12-31 08:03 | Surgery Progress Note ---
Surgery Progress Note Subjective Additional Comments ill appearing plan picc line change today kub pending labs noted right leg ischemia/hematoma Objective Last 24 Hour Vital Signs Date Time Temp Pulse Resp B/P (MAP) Pulse Ox O2 Delivery O2 Flow Rate FiO2 12/31/19 06:55 120 19 111/75 (87) 83 12/31/19 06:39 60 105/112 Mechanical Ventilator 40 12/31/19 06:31 18 118/50 Mechanical Ventilator 40 12/31/19 06:00 100.3 97 51/34 (40) 98 12/31/19 05:43 113 123/54 12/31/19 05:31 18 122/54 Mechanical Ventilator 40 12/31/19 05:00 103 17 136/63 (87) 97 12/31/19 04:31 18 122/54 Mechanical Ventilator 40 12/31/19 04:30 90 18 135/55 (81) 97 12/31/19 04:15 81 120/60 (80) 96 12/31/19 04:00 94 12/31/19 04:00 Mechanical Ventilator 12/31/19 04:00 40 12/31/19 04:00 98.8 108 137/53 (81) 83 12/31/19 03:45 105 22 118/55 (76) 82 12/31/19 03:31 18 135/55 Mechanical Ventilator 40 12/31/19 03:30 98 26 134/78 (96) 12/31/19 03:30 97 23 45 12/31/19 03:15 79 18 120/60 (80) 12/31/19 03:00 80 18 112/48 (69) 87 12/31/19 02:31 18 134/78 Mechanical Ventilator 40 12/31/19 02:00 110 19 135/69 (91) 97 12/31/19 01:31 18 120/50 Mechanical Ventilator 40 12/31/19 01:00 72 5 93/54 (67) 100 12/31/19 00:31 18 110/60 Mechanical Ventilator 40 12/31/19 00:11 77 114/47 12/31/19 00:00 99.0 71 18 114/47 (69) 99 12/31/19 00:00 Mechanical Ventilator 12/31/19 00:00 40 12/31/19 00:00 90 12/30/19 23:39 94 22 45 9/20/20 23:31 18 113/62 Mechanical Ventilator 40 20 23:00 76 18 106/59 (75) 99 20 22:31 18 113/62 Endotracheal Tube 40 12/30/19 22:00 73 18 113/62 (79) 99 2020 21:31 18 131/106 Mechanical Ventilator 40 20 21:00 102 19 133/55 (81) 99 20 20:51 98 148/74 20 20:31 17 124/60 Mechanical Ventilator 40 12/30/19 20:00 98.7 88 11 151/79 (103) 99 2020 20:00 Mechanical Ventilator 12/30/19 19:31 17 120/60 Mechanical Ventilator 40 12/30/19 19:12 104 22 45 12/30/19 19:00 105 17 128/62 (84) 92 12/30/19 18:31 14 125/56 Endotracheal Tube 40 12/30/19 18:00 123 20 121/67 (85) 100 12/30/19 17:43 124 159/68 12/30/19 17:31 18 159/68 Endotracheal Tube 40 12/30/19 17:00 98.1 108 16 145/84 (104) 98 12/30/19 16:31 22 129/79 Endotracheal Tube 40.0 40 12/30/19 16:20 22 129/79 Endotracheal Tube 40 12/30/19 16:00 Mechanical Ventilator 12/30/19 16:00 40 12/30/19 16:00 111 20 86/65 (72) 100 12/30/19 16:00 105 12/30/19 15:20 19 129/79 Endotracheal Tube 40 12/30/19 15:03 105 20 45 20 15:00 112 18 129/69 (89) 100 2020 14:20 18 129/69 Endotracheal Tube 40 12/30/19 14:00 111 21 141/58 (85) 93 12/30/19 13:20 20 148/67 Endotracheal Tube 40 20 13:00 60 18 103/58 (73) 100 20 12:20 18 103/58 Endotracheal Tube 40 12/30/19 12:05 76 12/30/19 12:00 98.3 70 18 127/72 (90) 100 12/30/19 12:00 Mechanical Ventilator 12/30/19 12:00 40 12/30/19 11:54 70 129/103 12/30/19 11:20 18 127/72 Endotracheal Tube 40 12/30/19 11:00 70 18 129/103 (112) 100 12/30/19 10:56 80 19 45 12/30/19 10:20 19 127/72 Endotracheal Tube 40 12/30/19 10:00 112 21 129/103 (112) 84 12/30/19 09:20 23 129/103 Endotracheal Tube 40 12/30/19 09:00 105 19 141/66 (91) 96 12/30/19 08:20 19 158/70 Endotracheal Tube 40 12/30/19 08:10 103 147/58 12/30/19 08:07 119 I&O Intake and Output 12/30/19 12/31/19 19:00 07:00 Intake Total 2171.66 ml 1675 ml Output Total 1100 ml 1940 ml Balance 1071.66 ml -265 ml Free Water 200 ml 90 ml IV Total 1491.66 ml 1145 ml Tube Feeding 480 ml 440 ml Output Urine Total 1100 ml 1940 ml Dressing: saturated Wound: other Cardiovascular: RSR Respiratory: decreased breath sounds Abdomen: soft, non-tender, present bowel sounds Extremities: edema, cyanosis, other Laboratory Tests Test 12/30/19 08:15 Arterial Blood pH 7.350 (7.350-7.450) Arterial Blood Partial Pressure CO2 56.2 mmHg (35.0-45.0) *H Arterial Blood Partial Pressure O2 85.4 mmHg (75.0-100.0) Arterial Blood HCO3 30.3 mmol/L (22.0-26.0) H Arterial Blood Oxygen Saturation 94.7 % (95-100) L Arterial Blood Base Excess 3.9 (-2-2) H Eugene Test Positive Plan Problems: (1) Urinary tract infection (2) CHF exacerbation (3) History of schizophrenia (4) Atrial fibrillation with RVR (5) Schizophrenia (6) GERD (gastroesophageal reflux disease) (7) Smoker (8) Atrial fibrillation with rapid ventricular response (9) Lymphadema (10) COPD (chronic obstructive pulmonary disease) (11) CKD (chronic kidney disease) stage 3, GFR 30-59 ml/min (12) NATALIE (acute kidney injury) (13) Dehydration (14) Dysphagia (15) UTI (urinary tract infection) (16) UGI bleed (17) ESBL (extended spectrum beta-lactamase) producing bacteria infection (18) Constipation (19) Lactic acidosis (20) Tinea cruris (21) Onychomycosis (22) Emesis (23) Essential hypertension (24) Anemia (25) Cough (26) Depression (27) Depression (28) Edema (29) Rash (30) Opiate dependence (31) Opiate dependence (32) Opiate dependence (33) Opiate dependence (34) Pyelonephritis (35) Sepsis (36) UTI (urinary tract infection) (37) Nausea and vomiting (38) Abdominal pain Assessment & Plan: [age]-year-old female obese white abdominal pain deep tissue injury identified limited mobility on HD. KUB noted tube in place continue meds feeds Does not seem obstructed We will monitor lines noted. plan change resume tube feeds labs okay FINDINGS: Lower thorax: Obscuration of the left costophrenic angle suggestive of pleural effusion. Intraperitoneal space: No free air. Gastrointestinal tract: Unremarkable. No dilation. Bones/joints: Unremarkable. Tubes, lines and devices: The nasogastric tube has the tip at the mid inferior aspect of the gastric body. Other findings: Nonspecific gas pattern. Single frontal view of the abdomen demonstrates tip of the enteric tube and distal side-port projecting over the stomach. Gas is identified within the nondistended large bowel. There is a paucity of small bowel gas seen. Partially visualized left pleural effusion. No other significant interval change. (39) Chest pain (40) Chest pain (41) Nausea (42) Obesity (43) Chronic ulcer of leg (44) Chronic ulcer of leg (45) Chronic ulcer of leg (46) ACS (acute coronary syndrome) (47) Acute chest pain (48) Encounter for dressing change or suture removal (49) Left leg cellulitis (50) Acute encephalopathy (51) Encounter for wound re-check (52) Intractable nausea and vomiting (53) Infection due to ESBL-producing Escherichia coli (54) Chronic venous stasis (55) Change of dressing (56) Change of dressing (57) Change of dressing (58) Change of dressing (59) Change of dressing (60) Change of dressing (61) Change of dressing (62) Change of dressing (63) ESBL urine (64) Lymphadema (65) Lymphedema (66) Lymphedema (67) Lymphedema (68) Lymphedema (69) Lymphedema (70) Lymphedema (71) Lymphedema (72) Lymphedema (73) Open wound of foot (74) Open wound of foot (75) cellulitis (76) chronic lymphedema (77) chronic lymphedema (78) chronic lymphedema (79) hypertension uncontrolled (80) hypertension uncontrolled (81) Intertrigo (82) Sciatica (83) Cellulitis (84) Schizophrenia (85) Chronic bronchitis (86) HTN (hypertension) (87) Venous stasis ulcers (88) Medication refill (89) Chest pain, atypical (90) BMI 45.0-49.9, adult (91) Lymphedema of both lower extremities (92) hypertension uncontrolled (93) hypertension uncontrolled (94) hypertension uncontrolled (95) tenia corpus (96) Deep tissue injury Assessment & Plan: Morbidly obese pt whom presented on admission with Pressure injuries, Edemae bilat lower extremities eschar to dorsal aspects of metatarsals. Pt is very demanding of staff and can be resistive to repositioning. DTPI noted to L Sacrum(L)5.5cm x (W)2.5cm. Base of Pressure Injury is Maroon and indurated with surrounding non-blanchable erythema DTPI R Sacrum(L)5.5cm x (W)2.3cm. Base of Pressure Injury is maroon with purpuric center that is fluctuant. Pt complained of tenderness when minimally palpated. Bilat lower extremities are edematous . Dry eschar noted to nail matrix and tip of L 1st metatarsal, Dorsal L 2nd metatarsal, R 2nd and R 4th metatarsals. Both heels are boggy with non-Blanchable erythema. blisters forming on Right lower extremity anterior tibia. not infected cellulitis / edema on b/l le stable cont abx Tx.Plan: Apply Moisture Barrier Paste to Sacrum R and L gluteal cheeks. Cover with Optifoam drsgs. Change every 3 days and prn. Apply Betadine to dry eschar metatarsals both feet Daily. Apply Cavilon Skin Barrier to both heels. Cover each heel with Optifoam drsgs. Change every 7days and prn. Reposition at least every 2hours or as tolerated. Off-load heels with pillow. right leg hematoma stable critically ill and edema on right leg has compromised dermis over the hematoma. will likely need debridement once improved (97) COVID-19 Assessment & Plan: ++ on vent weaning abx as per ID (98) Respiratory failure (99) Pneumonia Juan Manuel Buckner Dec 31, 2019 08:03
--- NOTE | 2019-12-31 08:09 | General Progress Note ---
Subjective ROS Limited/Unobtainable: Yes Allergies: Coded Allergies: ERYTHROMYCIN BASE (Verified Allergy, Severe, 12/12/19) HALOPERIDOL (Verified Allergy, Unknown, 12/12/19) VANCOMYCIN (Unverified Adverse Reaction, Intermediate, Shortness of Breath, 12/12/19) Objective Last 24 Hour Vital Signs Date Time Temp Pulse Resp B/P (MAP) Pulse Ox O2 Delivery O2 Flow Rate FiO2 12/31/19 06:55 120 19 111/75 (87) 83 12/31/19 06:39 60 105/112 Mechanical Ventilator 40 12/31/19 06:31 18 118/50 Mechanical Ventilator 40 12/31/19 06:00 100.3 97 51/34 (40) 98 12/31/19 05:43 113 123/54 12/31/19 05:31 18 122/54 Mechanical Ventilator 40 12/31/19 05:00 103 17 136/63 (87) 97 12/31/19 04:31 18 122/54 Mechanical Ventilator 40 12/31/19 04:30 90 18 135/55 (81) 97 12/31/19 04:15 81 120/60 (80) 96 12/31/19 04:00 94 12/31/19 04:00 Mechanical Ventilator 12/31/19 04:00 40 12/31/19 04:00 98.8 108 137/53 (81) 83 12/31/19 03:45 105 22 118/55 (76) 82 12/31/19 03:31 18 135/55 Mechanical Ventilator 40 12/31/19 03:30 98 26 134/78 (96) 12/31/19 03:30 97 23 45 12/31/19 03:15 79 18 120/60 (80) 12/31/19 03:00 80 18 112/48 (69) 87 12/31/19 02:31 18 134/78 Mechanical Ventilator 40 12/31/19 02:00 110 19 135/69 (91) 97 12/31/19 01:31 18 120/50 Mechanical Ventilator 40 12/31/19 01:00 72 5 93/54 (67) 100 12/31/19 00:31 18 110/60 Mechanical Ventilator 40 12/31/19 00:11 77 114/47 12/31/19 00:00 99.0 71 18 114/47 (69) 99 12/31/19 00:00 Mechanical Ventilator 12/31/19 00:00 40 12/31/19 00:00 90 12/30/19 23:39 94 22 45 12/30/19 23:31 18 113/62 Mechanical Ventilator 40 12/30/19 23:00 76 18 106/59 (75) 99 20 22:31 18 113/62 Endotracheal Tube 40 12/30/19 22:00 73 18 113/62 (79) 99 12/30/19 21:31 18 131/106 Mechanical Ventilator 40 12/30/19 21:00 102 19 133/55 (81) 99 12/30/19 20:51 98 148/74 20 20:31 17 124/60 Mechanical Ventilator 40 12/30/19 20:00 98.7 88 11 151/79 (103) 99 12/30/19 20:00 Mechanical Ventilator 12/30/19 19:31 17 120/60 Mechanical Ventilator 40 12/30/19 19:12 104 22 45 12/30/19 19:00 105 17 128/62 (84) 92 12/30/19 18:31 14 125/56 Endotracheal Tube 40 12/30/19 18:00 123 20 121/67 (85) 100 12/30/19 17:43 124 159/68 12/30/19 17:31 18 159/68 Endotracheal Tube 40 12/30/19 17:00 98.1 108 16 145/84 (104) 98 12/30/19 16:31 22 129/79 Endotracheal Tube 40.0 40 12/30/19 16:20 22 129/79 Endotracheal Tube 40 12/30/19 16:00 Mechanical Ventilator 12/30/19 16:00 40 12/30/19 16:00 111 20 86/65 (72) 100 12/30/19 16:00 105 12/30/19 15:20 19 129/79 Endotracheal Tube 40 12/30/19 15:03 105 20 45 12/30/19 15:00 112 18 129/69 (89) 100 12/30/19 14:20 18 129/69 Endotracheal Tube 40 12/30/19 14:00 111 21 141/58 (85) 93 12/30/19 13:20 20 148/67 Endotracheal Tube 40 12/30/19 13:00 60 18 103/58 (73) 100 9/20/20 12:20 18 103/58 Endotracheal Tube 40 12/30/19 12:05 76 12/30/19 12:00 98.3 70 18 127/72 (90) 100 12/30/19 12:00 Mechanical Ventilator 12/30/19 12:00 40 12/30/19 11:54 70 129/103 12/30/19 11:20 18 127/72 Endotracheal Tube 40 12/30/19 11:00 70 18 129/103 (112) 100 12/30/19 10:56 80 19 45 12/30/19 10:20 19 127/72 Endotracheal Tube 40 12/30/19 10:00 112 21 129/103 (112) 84 12/30/19 09:20 23 129/103 Endotracheal Tube 40 12/30/19 09:00 105 19 141/66 (91) 96 12/30/19 08:20 19 158/70 Endotracheal Tube 40 12/30/19 08:10 103 147/58 Intake and Output 12/30/19 12/31/19 19:00 07:00 Intake Total 2171.66 ml 1675 ml Output Total 1100 ml 1940 ml Balance 1071.66 ml -265 ml Free Water 200 ml 90 ml IV Total 1491.66 ml 1145 ml Tube Feeding 480 ml 440 ml Output Urine Total 1100 ml 1940 ml Laboratory Tests 12/30/19 08:15: Arterial Blood pH 7.350, Arterial Blood Partial Pressure CO2 56.2*H, Arterial Blood Partial Pressure O2 85.4, Arterial Blood HCO3 30.3H, Arterial Blood Oxygen Saturation 94.7L, Arterial Blood Base Excess 3.9H, Eugene Test Positive Height (Feet): 5 Height (Inches): 6.00 Weight (Pounds): 298 General Appearance: morbidly obese, other - sedated vent EENT: normal ENT inspection Cardiovascular: regularly irregular Respiratory/Chest: rhonchi - bilaterally Abdomen: non tender Edema: moderate edema Neurologic: unresponsive Skin: other - hematoma rle Assessment/Plan Problem List: (1) Schizophrenia ICD Codes: F20.9 - Schizophrenia, unspecified SNOMED: 47097178 (2) GERD (gastroesophageal reflux disease) ICD Codes: K21.9 - Gastro-esophageal reflux disease without esophagitis SNOMED: 936244594 (3) Lymphadema (4) Smoker ICD Codes: F17.200 - Nicotine dependence, unspecified, uncomplicated SNOMED: 38096446 (5) Atrial fibrillation with rapid ventricular response ICD Codes: I48.91 - Unspecified atrial fibrillation SNOMED: 337202631585183 (6) CKD (chronic kidney disease) stage 3, GFR 30-59 ml/min ICD Codes: N18.3 - Chronic kidney disease, stage 3 (moderate) SNOMED: 623699537 (7) NATALIE (acute kidney injury) ICD Codes: N17.9 - Acute kidney failure, unspecified SNOMED: 8660693, 59262166 (8) COPD (chronic obstructive pulmonary disease) ICD Codes: J44.9 - Chronic obstructive pulmonary disease, unspecified SNOMED: 37822240 (9) UGI bleed ICD Codes: K92.2 - Gastrointestinal hemorrhage, unspecified SNOMED: 90193991 (10) Dysphagia ICD Codes: R13.10 - Dysphagia, unspecified SNOMED: 18691397, 647813181 (11) UTI (urinary tract infection) ICD Codes: N39.0 - Urinary tract infection, site not specified SNOMED: 94700420 (12) ESBL (extended spectrum beta-lactamase) producing bacteria infection ICD Codes: A49.9 - Bacterial infection, unspecified; Z16.12 - Extended spectrum beta lactamase (ESBL) resistance SNOMED: 155452350 (13) Dehydration ICD Codes: E86.0 - Dehydration SNOMED: 67736575 (14) CHF exacerbation ICD Codes: I50.9 - Heart failure, unspecified SNOMED: 735766909, 75097000084488 (15) Acute respiratory failure ICD Codes: J96.00 - Acute respiratory failure, unspecified whether with hypoxia or hypercapnia SNOMED: 45223350 (16) COVID-19 ICD Codes: U07.1 - COVID-19 SNOMED: 455583188 (17) Pneumonia ICD Codes: J18.9 - Pneumonia, unspecified organism SNOMED: 149993250 Qualifiers: (18) Hematoma of lower leg ICD Codes: S80.10XA - Contusion of unspecified lower leg, initial encounter SNOMED: 223491249 (19) CKD (chronic kidney disease) stage 3, GFR 30-59 ml/min ICD Codes: N18.3 - Chronic kidney disease, stage 3 (moderate) SNOMED: 958360238 Status: stable Assessment/Plan: resp distress, icu, now intubated, natalie on ckd,,now stable, I/O, ,+hematoma RLE stop eliquis ancd asa, lovenox now iv protonix, rx esbl and + vre uti,g+ cocci linezolid , remains high risk, d/w psych, ID, cardiology, chf and on lasix ,covid neg prior now +, grave prognosis, fungemia on micafungin likely will be unable to wean for a long time, icu time 32 min Benjamin Dumont MD Dec 31, 2019 08:09
--- NOTE | 2019-12-31 08:44 | NUR ---
RD ASSESSMENT & RECOMMENDATIONS SEE CARE ACTIVITY FOR COMPLETE ASSESSMENT DAILY ESTIMATED NEEDS: Needs based on Obesity, Cardiac, DM, NATALIE, Critical Care/ 80.5kg abw 22-25kg/IBW (59kg) kcals/kg 4637-0667 total kcals 1-2 g protein/kg 80-161 g total protein 20-25 mL/kg 8440-3932 total fluid mLs NUTRITION DIAGNOSIS: 1) Class III Obesity R/T lifestyle factors? excessive energy intake as evidenced by pt w/ BMI >50, @ 245% IBW. 2) Altered nutrition related lab values R/T diabetes, altered lipid metabolism, cardiac hx, NATALIE as evidenced by A1C of 7.1, elev triglyceride 239, elev BNP 4671, elev creat (1.7->4.3 -> 1.8, elev BUN (92 -> 65), elev K (5.4, 5.2 -> wnl->5.3-> wnl), 3) Swallowing difficulty R/T decreased cognitive fxn, respiratory status as evidenced by s/p NGT insertion (12/17), s/p worsening respiratoy status, Covid-19 positive, orally intubated (12/22), NPO. CURRENT TF:Nepro @ 40ml/hr x 24hrs ENTERAL NUTRITION RECOMMENDATIONS: Glucerna 1.5 @ 40ml/hr x 24 hrs to provide 960ml, 1440kcal, 79g prot, 729ml free water * W/ continued improving renal fxn, rec TF change to Glucerna 1.5 * Rec goal rate of 40ml/hr x 24 hrs * HOB over 30 degrees/ water flush per MD ADDITIONAL RECOMMENDATIONS: 1) Calibrated bedscale wt: fluctuating daily wts 2) Monitor renal fxn and lytes, need to continue Nepro -> creat trend down, K wnl, rec TF change to Glucerna 1.5 (See above) 3) Wound healing: add Nephrovite x 1, Vit C 250mg QD, Armand BID via NGT 4) Monitor BGs closely w/ Decadron: NISS now added . .
[2019-12-31] MEDS: Polymyxin B Sulfate 500,000 UNITS in D5W 500ml 550 ML IV SCH ×2 (08:57→20:12)
[2019-12-31] MEDS: dexAMETHasone 10mg/ml Inj IV SCH (08:57)
[2019-12-31] MEDS: Docusate 100mg/10ml Liq NG SCH ×2 (08:58→18:02)
[2019-12-31] MEDS: Enoxaparin 60mg Inj SUBQ SCH (09:00)
[2019-12-31] MEDS: Metoprolol Tartrate 50mg tab NG SCH ×3 (09:02→20:56)
[2019-12-31] MEDS: Bacitracin Oint 15gm Tube TOPIC SCH ×2 (09:05→18:02)
--- NOTE | 2019-12-31 09:29 | NUR ---
RESPIRATORY THERAPIST NOTES: Unable to wean because of agitation.
[2019-12-31] MEDS ORDERED: NS Irrig 1000ml ONE (09:41)
[2019-12-31] MEDS ORDERED: Tubing IV Secondary IV ONE (09:41)
[2019-12-31] MEDS ORDERED: NS 275ml ONE (09:41)
--- NOTE | 2019-12-31 09:57 | NUR ---
NURSE NOTES: Interventional radiology checked PICC line and says they will have to come back in afternoon to insert new PICC. Left hand IV running abx and fentanyl.
[2019-12-31] MEDS: Micafungin 100 MG in NS 110 ML IVPB SCH (10:02)
--- NOTE | 2019-12-31 10:37 | General Progress Note ---
Subjective ROS Limited/Unobtainable: No Allergies: Coded Allergies: ERYTHROMYCIN BASE (Verified Allergy, Severe, 12/12/19) HALOPERIDOL (Verified Allergy, Unknown, 12/12/19) VANCOMYCIN (Unverified Adverse Reaction, Intermediate, Shortness of Breath, 12/12/19) Objective Last 24 Hour Vital Signs Date Time Temp Pulse Resp B/P (MAP) Pulse Ox O2 Delivery O2 Flow Rate FiO2 12/31/19 09:36 105 134/68 12/31/19 09:11 98 12/31/19 08:00 40 12/31/19 07:24 100 19 45 12/31/19 06:55 120 19 111/75 (87) 83 12/31/19 06:39 60 105/112 Mechanical Ventilator 40 12/31/19 06:31 18 118/50 Mechanical Ventilator 40 12/31/19 06:00 100.3 97 51/34 (40) 98 12/31/19 05:43 113 123/54 12/31/19 05:31 18 122/54 Mechanical Ventilator 40 12/31/19 05:00 103 17 136/63 (87) 97 12/31/19 04:31 18 122/54 Mechanical Ventilator 40 12/31/19 04:30 90 18 135/55 (81) 97 12/31/19 04:15 81 120/60 (80) 96 12/31/19 04:00 94 12/31/19 04:00 Mechanical Ventilator 12/31/19 04:00 40 12/31/19 04:00 98.8 108 137/53 (81) 83 12/31/19 03:45 105 22 118/55 (76) 82 12/31/19 03:31 18 135/55 Mechanical Ventilator 40 12/31/19 03:30 98 26 134/78 (96) 12/31/19 03:30 97 23 45 12/31/19 03:15 79 18 120/60 (80) 12/31/19 03:00 80 18 112/48 (69) 87 12/31/19 02:31 18 134/78 Mechanical Ventilator 40 12/31/19 02:00 110 19 135/69 (91) 97 12/31/19 01:31 18 120/50 Mechanical Ventilator 40 12/31/19 01:00 72 5 93/54 (67) 100 12/31/19 00:31 18 110/60 Mechanical Ventilator 40 12/31/19 00:11 77 114/47 12/31/19 00:00 99.0 71 18 114/47 (69) 99 12/31/19 00:00 Mechanical Ventilator 12/31/19 00:00 40 12/31/19 00:00 90 12/30/19 23:39 94 22 45 12/30/19 23:31 18 113/62 Mechanical Ventilator 40 12/30/19 23:00 76 18 106/59 (75) 99 12/30/19 22:31 18 113/62 Endotracheal Tube 40 12/30/19 22:00 73 18 113/62 (79) 99 12/30/19 21:31 18 131/106 Mechanical Ventilator 40 12/30/19 21:00 102 19 133/55 (81) 99 12/30/19 20:51 98 148/74 12/30/19 20:31 17 124/60 Mechanical Ventilator 40 12/30/19 20:00 98.7 88 11 151/79 (103) 99 12/30/19 20:00 Mechanical Ventilator 12/30/19 19:31 17 120/60 Mechanical Ventilator 40 12/30/19 19:12 104 22 45 12/30/19 19:00 105 17 128/62 (84) 92 12/30/19 18:31 14 125/56 Endotracheal Tube 40 12/30/19 18:00 123 20 121/67 (85) 100 12/30/19 17:43 124 159/68 12/30/19 17:31 18 159/68 Endotracheal Tube 40 12/30/19 17:00 98.1 108 16 145/84 (104) 98 12/30/19 16:31 22 129/79 Endotracheal Tube 40.0 40 12/30/19 16:20 22 129/79 Endotracheal Tube 40 12/30/19 16:00 Mechanical Ventilator 12/30/19 16:00 40 12/30/19 16:00 111 20 86/65 (72) 100 12/30/19 16:00 105 12/30/19 15:20 19 129/79 Endotracheal Tube 40 12/30/19 15:03 105 20 45 12/30/19 15:00 112 18 129/69 (89) 100 12/30/19 14:20 18 129/69 Endotracheal Tube 40 12/30/19 14:00 111 21 141/58 (85) 93 12/30/19 13:20 20 148/67 Endotracheal Tube 40 12/30/19 13:00 60 18 103/58 (73) 100 12/30/19 12:20 18 103/58 Endotracheal Tube 40 12/30/19 12:05 76 12/30/19 12:00 98.3 70 18 127/72 (90) 100 12/30/19 12:00 Mechanical Ventilator 12/30/19 12:00 40 12/30/19 11:54 70 129/103 12/30/19 11:20 18 127/72 Endotracheal Tube 40 12/30/19 11:00 70 18 129/103 (112) 100 12/30/19 10:56 80 19 45 Intake and Output 12/30/19 12/31/19 19:00 07:00 Intake Total 2171.66 ml 1675 ml Output Total 1100 ml 1940 ml Balance 1071.66 ml -265 ml Free Water 200 ml 90 ml IV Total 1491.66 ml 1145 ml Tube Feeding 480 ml 440 ml Output Urine Total 1100 ml 1940 ml Height (Feet): 5 Height (Inches): 6.00 Weight (Pounds): 298 General Appearance: no apparent distress EENT: normal ENT inspection Neck: supple Cardiovascular: normal rate Respiratory/Chest: decreased breath sounds Abdomen: hypoactive bowel sounds Extremities: non-tender Assessment/Plan Problem List: (1) CKD (chronic kidney disease) stage 3, GFR 30-59 ml/min ICD Codes: N18.3 - Chronic kidney disease, stage 3 (moderate) SNOMED: 896671174 (2) COPD (chronic obstructive pulmonary disease) ICD Codes: J44.9 - Chronic obstructive pulmonary disease, unspecified SNOMED: 37994642 (3) Smoker ICD Codes: F17.200 - Nicotine dependence, unspecified, uncomplicated SNOMED: 36390695 (4) GERD (gastroesophageal reflux disease) ICD Codes: K21.9 - Gastro-esophageal reflux disease without esophagitis SNOMED: 481465018 (5) Atrial fibrillation with RVR ICD Codes: I48.91 - Unspecified atrial fibrillation SNOMED: 563058994823824 Status: stable Assessment/Plan: ngtf pepcid fu H&H monitor labs bowel regimen fu cardiology recs icu care pending bioethic consult will change TF per dietitian recommendations pending PICC insertion Mervin Victoria MD Dec 31, 2019 10:37
--- NOTE | 2019-12-31 10:57 | Pulmonolgy Critical Care Note ---
Luz Bowen SCRUFF WORKER 12/31/19 1057: Critical Care - Asmt/Plan Assessment/Plan: ASSESSMENT acute hypoxemic hypercapnic resp failure, requiring intubation 12/22 COVID 19 PNA sepsis fungemia UTI with E coli ESBL UTI VRE possible aspiration PNA COPD Bronchospasm Atrial fibrillation with rapid ventricular response Congestive heart failure Acute renal failure on CKD Severe anemia Probable GI bleeding Thrombocytopenia Status post ground fall Tobacco dependency Morbid obesity probably GARY Homeless R knee edema and hematoma, likely sprain /strain post fall PLAN OF CARE ICU intubated 12/22 ABG better with AC 18, titrate Fio2 to keep sat above 90% ABG 12/28 just noted, mild hypercapnia, -> will increase AC rate to 20 and repeat ABG later CXR for this am pending MDI Albuterol in line with vent fup with CXR and ABG will evaluate for thoracentesis when more stable not started on weaning trials with high PS settings as ordered, goal MV 10 lpm discussed with RN, steroids IV ( started 12/23) and Remdesivir (started 12/24 ) per pulmo ok to stop remdesivir if ok with ID discussed with ID Dr Coronel - adair to dc Remdesivivr, continue steroids for total of 10 days initial diagnoses with COVID 19 at [facility] 11/29, was not hypoxic and not intubated, was not treated with Remdesivivr , only received empiric abx for PNA sedation with Fentanyl gtt - down titrate as tolerated for weaning trials DVT prophylaxis with Lovenox prior Venous Duplex BLE -NGT COVID 19 by PCR 12/22 positive isolation IL 6 52 , initial CRP 15.6, ferritin 769, fup with inflammatory markers CRP 12/29 - down to 11.8 ; ferritin down to 503 on diuresis with Lasix , monitor volumes closely creat remains stable rate control- per cardio recs: monitor volumes pro BNP trending down ECHO with pEF no evidence of WMA GI prophylaxis with PPI s/p Venofer x 2 s/p blood transfusion 12/25 monitor HH with goal to keep Hgb >7 GI procedure when stable monitor PLT counts renal US no hydro, BL nonobstructive stones s/p IV hydration, now resumed again per nephro monitor renal parameters, lytes , e/lyte management as per nephro recs UCX 12/11 + E coli ESBL, BCX 12/16 1/2 + yeast, fup with yeast ID, ? source BCX 12/17 NGTD BCX 12/22 and 12/24 NGTD UCX 12/16 VRE SCX 12/19 MRSA, ACB MDR now on meropenem , micafungin , Polymyxin and Zyvox -as per ID recs , cooling blanket prn fevers prior X ray R knee given fall 12/15 , large hematoma, swelling-no fx or dislocation ice R knee and elevate CT head no acute IC pathology fall precautions prior declined Nicotine patch discussion on weight loss if receptive - not at this time; anxious and wants to go home pain management anxiolytic prn SW consult for placement evaluated by bioethics -> DNR/DNI status appropriate case discussed and evaluated by supervising physician ivy mccarty for a consult! Critical Care - Objective Last 24 Hour Vital Signs Date Time Temp Pulse Resp B/P (MAP) Pulse Ox O2 Delivery O2 Flow Rate FiO2 12/31/19 09:36 105 134/68 12/31/19 09:11 98 12/31/19 08:00 40 12/31/19 07:24 100 19 45 12/31/19 06:55 120 19 111/75 (87) 83 12/31/19 06:39 60 105/112 Mechanical Ventilator 40 12/31/19 06:31 18 118/50 Mechanical Ventilator 40 12/31/19 06:00 100.3 97 51/34 (40) 98 12/31/19 05:43 113 123/54 12/31/19 05:31 18 122/54 Mechanical Ventilator 40 12/31/19 05:00 103 17 136/63 (87) 97 12/31/19 04:31 18 122/54 Mechanical Ventilator 40 12/31/19 04:30 90 18 135/55 (81) 97 12/31/19 04:15 81 120/60 (80) 96 12/31/19 04:00 94 12/31/19 04:00 Mechanical Ventilator 12/31/19 04:00 40 12/31/19 04:00 98.8 108 137/53 (81) 83 12/31/19 03:45 105 22 118/55 (76) 82 12/31/19 03:31 18 135/55 Mechanical Ventilator 40 12/31/19 03:30 98 26 134/78 (96) 12/31/19 03:30 97 23 45 12/31/19 03:15 79 18 120/60 (80) 12/31/19 03:00 80 18 112/48 (69) 87 12/31/19 02:31 18 134/78 Mechanical Ventilator 40 12/31/19 02:00 110 19 135/69 (91) 97 12/31/19 01:31 18 120/50 Mechanical Ventilator 40 12/31/19 01:00 72 5 93/54 (67) 100 12/31/19 00:31 18 110/60 Mechanical Ventilator 40 12/31/19 00:11 77 114/47 12/31/19 00:00 99.0 71 18 114/47 (69) 99 12/31/19 00:00 Mechanical Ventilator 12/31/19 00:00 40 12/31/19 00:00 90 12/30/19 23:39 94 22 45 12/30/19 23:31 18 113/62 Mechanical Ventilator 40 12/30/19 23:00 76 18 106/59 (75) 99 12/30/19 22:31 18 113/62 Endotracheal Tube 40 12/30/19 22:00 73 18 113/62 (79) 99 12/30/19 21:31 18 131/106 Mechanical Ventilator 40 12/30/19 21:00 102 19 133/55 (81) 99 12/30/19 20:51 98 148/74 12/30/19 20:31 17 124/60 Mechanical Ventilator 40 12/30/19 20:00 98.7 88 11 151/79 (103) 99 12/30/19 20:00 Mechanical Ventilator 12/30/19 19:31 17 120/60 Mechanical Ventilator 40 12/30/19 19:12 104 22 45 12/30/19 19:00 105 17 128/62 (84) 92 12/30/19 18:31 14 125/56 Endotracheal Tube 40 12/30/19 18:00 123 20 121/67 (85) 100 12/30/19 17:43 124 159/68 12/30/19 17:31 18 159/68 Endotracheal Tube 40 12/30/19 17:00 98.1 108 16 145/84 (104) 98 12/30/19 16:31 22 129/79 Endotracheal Tube 40.0 40 12/30/19 16:20 22 129/79 Endotracheal Tube 40 12/30/19 16:00 Mechanical Ventilator 12/30/19 16:00 40 12/30/19 16:00 111 20 86/65 (72) 100 12/30/19 16:00 105 12/30/19 15:20 19 129/79 Endotracheal Tube 40 12/30/19 15:03 105 20 45 12/30/19 15:00 112 18 129/69 (89) 100 12/30/19 14:20 18 129/69 Endotracheal Tube 40 12/30/19 14:00 111 21 141/58 (85) 93 12/30/19 13:20 20 148/67 Endotracheal Tube 40 12/30/19 13:00 60 18 103/58 (73) 100 12/30/19 12:20 18 103/58 Endotracheal Tube 40 12/30/19 12:05 76 12/30/19 12:00 98.3 70 18 127/72 (90) 100 12/30/19 12:00 Mechanical Ventilator 12/30/19 12:00 40 12/30/19 11:54 70 129/103 12/30/19 11:20 18 127/72 Endotracheal Tube 40 12/30/19 11:00 70 18 129/103 (112) 100 12/30/19 10:56 80 19 45 Objective: CONDITION: critical General Appearance: morbidly obese , sedated, on vent AC 600-18-40% PEEP 5 Lines, tubes and drains: LUE PICC (not in place as per CXR) HEENT: normocephalic, atraumatic, anicteric, NGT in , OP with ET Neck: non-tender Respiratory/Chest: chest wall non-tender, no accessory muscle use, decreased breath sounds; Cardiovascular/Chest: irregularly irregular - A fib , tachy at times , distant heart sounds, Abdomen: normal bowel sounds, non tender , obese, soft : [place] Extremities: no calf tenderness, moderate edema - +3 BLE, R knee with large hematoma, edema, Skin Exam: warm/dry, multiple tattoos Neurologic: sedated Musculoskeletal: normal muscle bulk Accucheck: 107 Critical Care - Subjective ROS Limited/Unobtainable: Yes Interval Events: fever this am, no leukocytosis tachycardia no started on weaning ABG from 12/28 noted PICC not in correct placement per CXR 12/28 and needs advancement patient was anxious, fentanyl gtt increased, now calm and sedated Condition: critical IV Access: PICC - LUE but CXR 12/29 reported not correct [lacement, needs advacnement EKG Rhythm: Atrial Fibrillation FI02: 40 Vent Support Breath Rate: 18 Vent Support Mode: AC Vent Tidal Volume: 600 Sputum Amount: Moderate PEEP: 5.0 PIP: 84 Drips: Fentanyl gtt 230 mcg/hr Tube Feeding Amount: 0 I&O: Intake and Output 12/30/19 12/31/19 19:00 07:00 Intake Total 2171.66 ml 1675 ml Output Total 1100 ml 1940 ml Balance 1071.66 ml -265 ml Free Water 200 ml 90 ml IV Total 1491.66 ml 1145 ml Tube Feeding 480 ml 440 ml Output Urine Total 1100 ml 1940 ml CXR: CXR 12/29 Little interval change in moderate right effusion and pneumonia/aspiration. Suspected retrocardiac infiltrate. ET-Tube: 7.5 ET Position: 24 Igor Carpio MD 12/31/19 1356: Critical Care - Asmt/Plan Assessment/Plan: Patient seen and examined with SCRUFF WORKER. Agree with above A&P as it reflects out joint deliberations Continue ventilatory support/settings reviewed Titrate O2, PEEP 5 HHN's D/W Dr. Dumont, will attempt extubation in am ---> If unable will need a trach Will need to determine GOC first, SW eval pending, ? Re: prior polst Abx per ID Monitor volumes and renal function, diuresis as able DVT px: LMWH Wound care, surgery recs Optimize sedation, Fent gtt titrate to RASS -2, PRN Versed, F/U psych recs FC, continue to discuss GOC CCT 60 D/W ICU team D/W Dr. Ballesteros D/W Dr. Dumont D/W RT and CCRN Time Spent (Minutes): 50 Notes Reviewed: spreader box operator, cardio, renal, ID, GI, other - SURGERY Discussed with: nurses, consultants Critical Care - Objective Status: sedated - int Condition: critical HEENT: atraumatic, normocephalic, other - NGT Lungs: rhonchi Heart: HR/BP stable Abdomen: soft, non-tender, active bowel sounds Extremities: edema - 3-4+ AIXA, wound on R ant martínze Blood Sugars: BS controlled Critical Care - Subjective ROS Limited/Unobtainable: Yes Intubation Day: 9 Condition: critical IV Access: peripheral EKG Rhythm: Sinus Rhythm CXR: Mod r eff Labs: Laboratory Tests 12/31/19 12:09: Arterial Blood pH 7.373, Arterial Blood Partial Pressure CO2 55.4*H, Arterial Blood Partial Pressure O2 105.0H, Arterial Blood HCO3 31.5H, Arterial Blood Oxygen Saturation 96.5, Arterial Blood Base Excess 5.5H, Eugene Test Positive Luz Bowen NP Dec 31, 2019 10:57 Igor Carpio MD Dec 31, 2019 13:56
--- NOTE | 2019-12-31 11:50 | NUR ---
NURSE NOTES: Pt repositioned. oral care done.
--- NOTE | 2019-12-31 13:28 | NUR ---
NURSE NOTES: spoke with Mariano from radiology regarding results of morning KUB. He said he will talk with radiologist to get results
--- NOTE | 2019-12-31 13:45 | NUR ---
NURSE NOTES: Both RT Yaima and RN having trouble advancing suction tubing through the ETT. Dr. Carpio @ bedside, aware of this. [facility]
--- NOTE | 2019-12-31 14:00 | NUR ---
NURSE NOTES: PER DR ABDI, stop all sedation at 0600 tomorrow for weaning trial. If not able to wean, pt will be trach'd.
--- NOTE | 2019-12-31 14:43 | NUR ---
CASE MANAGEMENT: REVIEW SI: COVID-19 . ACUTE HYPOXEMIC . HYPERCAPNIC . RESP FAILURE . REQUIRING INTUBATION T 99.5 HR 106 RR 18 BP 112/53 SAT 95% MECH VENT FIO2 45 H/H 8.9/28.2 BUN 83 CR 1.9 IS: LASIX IV Q6HR FENTANYL IV Q24 MEROPENEM IV Q12HR POLYMYXIN IV Q12HR ZYVOX IV Q12HR MICAFUNGIN IV Q24HR DECADRON IV QD NGT FEEDING ICU STATUS DCP: PATIENT REPORTS HOMELESS
[2019-12-31] MEDS: Midazolam 2mg/2ml Inj IVP PRN ×2 (15:03→20:49)
--- NOTE | 2019-12-31 15:34 | Infectious Diseases Prog Note ---
Assessment/Plan Assessment/Plan ASSESSMENT AND PLAN: 1. hx esbl e.coli uti/pyelonephritis, sepsis, leukocytosis, fevers mrsa and vre colonization, NATALIE, respiratory distress/failure Fungemia - + yeast in blood mrsa pna/acinetobacter pna VRE uti covid-19 infection right leg swelling and redness noted, ? cellulitis, ? infected hematoma, ? wound infection - zyvox, meropenem, polymyxin, micafungin - day # 9 abx combination - s/p remdesivir, on dexamethasone - monitor labs and chest x-ray - debridement right leg per surgery when patient stable - surveillance blood cultures negative - icu care, supportive care - d/w RN 2. Chronic kidney failure, acute renal failure. 3. COPD. 4. Pulmonary followup. 5. Renal followup. 6. History of falls. 7. Atrial fibrillation. Cardiology followup. 8. Obesity. 9. Gait disorder. 10. Schizophrenia. 11. Homeless. 12. Allergic to erythromycin, haloperidol, and vancomycin. 13. Social history is negative. 14. Family history is noncontributory. 15. MAR is noted. 16. Case discussed with RN. 17. Continue treatment per Dr. Dumont and consultants. Subjective Constitutional: Reports: fatigue, other - on vent ; Denies: fever HEENT: Reports: congestion Respiratory: Denies: shortness of breath Cardiovascular: Reports: other - no pressors ; Denies: chest pain Gastrointestinal/Abdominal: Denies: nausea, vomiting, diarrhea Genitourinary: Reports: other - + trivedi Neurologic: Reports: weakness, other - on vent Psychiatric: Reports: other - NA Skin: Denies: rash Hematologic: Denies: bleeding Musculoskeletal: Reports: other - NA Allergies: Coded Allergies: ERYTHROMYCIN BASE (Verified Allergy, Severe, 12/12/19) HALOPERIDOL (Verified Allergy, Unknown, 12/12/19) VANCOMYCIN (Unverified Adverse Reaction, Intermediate, Shortness of Breath, 12/12/19) Objective Last 24 Hour Vital Signs Date Time Temp Pulse Resp B/P (MAP) Pulse Ox O2 Delivery O2 Flow Rate FiO2 12/31/19 14:00 89 13 112/53 (72) 95 12/31/19 13:00 106 18 130/55 (80) 93 12/31/19 12:39 96 121/79 12/31/19 12:00 40 12/31/19 12:00 Mechanical Ventilator 12/31/19 12:00 78 12/31/19 12:00 99.5 91 18 112/61 (78) 99 12/31/19 11:21 100 20 45 12/31/19 11:00 99 21 123/79 (94) 98 12/31/19 10:00 91 14 109/64 (79) 99 12/31/19 09:36 105 134/68 12/31/19 09:11 98 12/31/19 09:00 105 20 144/75 (98) 63 12/31/19 08:00 40 12/31/19 08:00 99.9 114 18 129/72 (91) 100 12/31/19 08:00 Mechanical Ventilator 12/31/19 08:00 101 12/31/19 07:24 100 19 45 12/31/19 06:55 120 19 111/75 (87) 83 12/31/19 06:39 60 105/112 Mechanical Ventilator 40 12/31/19 06:31 18 118/50 Mechanical Ventilator 40 12/31/19 06:00 100.3 97 51/34 (40) 98 12/31/19 05:43 113 123/54 12/31/19 05:31 18 122/54 Mechanical Ventilator 40 12/31/19 05:00 103 17 136/63 (87) 97 12/31/19 04:31 18 122/54 Mechanical Ventilator 40 12/31/19 04:30 90 18 135/55 (81) 97 12/31/19 04:15 81 120/60 (80) 96 12/31/19 04:00 94 12/31/19 04:00 Mechanical Ventilator 12/31/19 04:00 40 12/31/19 04:00 98.8 108 137/53 (81) 83 12/31/19 03:45 105 22 118/55 (76) 82 12/31/19 03:31 18 135/55 Mechanical Ventilator 40 12/31/19 03:30 98 26 134/78 (96) 12/31/19 03:30 97 23 45 12/31/19 03:15 79 18 120/60 (80) 12/31/19 03:00 80 18 112/48 (69) 87 12/31/19 02:31 18 134/78 Mechanical Ventilator 40 12/31/19 02:00 110 19 135/69 (91) 97 12/31/19 01:31 18 120/50 Mechanical Ventilator 40 12/31/19 01:00 72 5 93/54 (67) 100 12/31/19 00:31 18 110/60 Mechanical Ventilator 40 12/31/19 00:11 77 114/47 12/31/19 00:00 99.0 71 18 114/47 (69) 99 12/31/19 00:00 Mechanical Ventilator 12/31/19 00:00 40 12/31/19 00:00 90 12/30/19 23:39 94 22 45 12/30/19 23:31 18 113/62 Mechanical Ventilator 40 12/30/19 23:00 76 18 106/59 (75) 99 12/30/19 22:31 18 113/62 Endotracheal Tube 40 12/30/19 22:00 73 18 113/62 (79) 99 12/30/19 21:31 18 131/106 Mechanical Ventilator 40 12/30/19 21:00 102 19 133/55 (81) 99 12/30/19 20:51 98 148/74 12/30/19 20:31 17 124/60 Mechanical Ventilator 40 12/30/19 20:00 98.7 88 11 151/79 (103) 99 12/30/19 20:00 Mechanical Ventilator 12/30/19 19:31 17 120/60 Mechanical Ventilator 40 12/30/19 19:12 104 22 45 12/30/19 19:00 105 17 128/62 (84) 92 12/30/19 18:31 14 125/56 Endotracheal Tube 40 12/30/19 18:00 123 20 121/67 (85) 100 12/30/19 17:43 124 159/68 12/30/19 17:31 18 159/68 Endotracheal Tube 40 12/30/19 17:00 98.1 108 16 145/84 (104) 98 12/30/19 16:31 22 129/79 Endotracheal Tube 40.0 40 12/30/19 16:20 22 129/79 Endotracheal Tube 40 12/30/19 16:00 Mechanical Ventilator 12/30/19 16:00 40 12/30/19 16:00 111 20 86/65 (72) 100 12/30/19 16:00 105 Height (Feet): 5 Height (Inches): 6.00 Weight (Pounds): 298 General Appearance: other - on vent, no pressors HEENT: normocephalic, atraumatic, anicteric, no JVD, other - oral - intubated Respiratory/Chest: crackles/rales, rhonchi - bilaterally Cardiovascular: normal rate, regular rhythm, no gallop/murmur Abdomen: normal bowel sounds, soft, non tender, no organomegaly, non distended Genitourinary: other - + trivedi - urine slt cloudy Extremities: other - right leg cellulitis and hemtoma, ? infected hematoma Skin: no rash Neurologic/Psychiatric: other - weak, on vent Lymphatic: no neck adenopathy Musculoskeletal: no effusion Chest x-ray - 11/17/19 - Procedure: XRAY Chest 1v Indication: Shortness of breath Technique: One view of the chest Comparison: 12/17/2019 Findings: The heart is enlarged. There is bilateral interstitial and airspace disease is again demonstrated, probably unchanged allowing for differences in degree of inspiration. Impression: Unchanged, over one day, findings as above. Chest x-ray - 12/21/19 - Procedure: XRAY Chest 1v Indication: Shortness of breath Technique: One view of the chest Comparison: 12/19/2019 Findings: The heart is enlarged. Bilateral extensive infiltrates are again demonstrated, stable to slightly worse allowing for differences in exposure technique. There is suggestion of increasing pleural fluid on the left. Nasogastric tube is again demonstrated. Impression: Stable to worsened bilateral extensive infiltrates, since exam of 2 days prior Increasing left pleural effusion Chest x-ray - 12/23/19 - IMPRESSION: 1. No significant interval change from the prior chest x-ray. 2. Persistent moderate left pleural effusion and mild right pleural effusion. 3. Pulmonary vascular congestion. 4. Persistent opacity in the left lung base, which may represent atelectasis versus pneumonia. Chest x-ray - 12/25/19 - Procedure: XRAY Chest 1v Procedure: XRAY Chest 1v Reason for study: Reason For Exam: SOB Comparison films: 12/24/2019. FINDINGS: The tracheal tube and NG tube remain in place. Vascular prominence and bilateral hazy alveolar densities are unchanged. Cardiomegaly and small effusions also unchanged. The bony thorax appear unremarkable. IMPRESSION: NO SIGNIFICANT CHANGE COMPARED TO PREVIOUS EXAM. 12/26/19 - Procedure: XRAY Chest 1v Procedure: XRAY Chest 1v Reason for study: Reason For Exam: SOB Comparison films: 12/25/2019. FINDINGS: Endotracheal tube and NG tube remain in place. Hazy bilateral alveolar densities are essentially unchanged given the difference in technique. Cardiomegaly and right effusion again noted. The bony thorax appear unremarkable. IMPRESSION: NO SIGNIFICANT CHANGE COMPARED TO PREVIOUS EXAM. Chest x-ray - 12/28/19 - Procedure: XRAY Chest 1v Indication: Reason For Exam: SOB Technique: Single AP view of the chest. Comparison: Chest radiograph dated 12/27/2019 Findings: Exam is again noted to be diagnostically limited due to underpenetration, patient rotation, and exclusion of part of the left hemithorax from the [id number]. Within these limitations: No significant change in appearance of visualized cardiomediastinal silhouette. Unchanged layering right pleural effusion with associated basilar airspace opacities. Likely retrocardiac consolidation, unchanged. No apical pneumothoraces. Unchanged enteric and endotracheal tubes. Unchanged left PICC. Chest x-ray - 12/30/19 - FINDINGS: Distal tip of ET tube is above devika. Distal tip of the enteric tube is in stomach. Stable left arm PICC line with distal tip likely in the left subclavian vein. Cardiac silhouette is within normal limits allowing for portable and rotated technique. Low lung volumes with elevated left hemidiaphragm. Again noted is a moderate right effusion with patchy infiltrates in the right mid to lower lung. Probable retrocardiac infiltrates. IMPRESSION: Little interval change in moderate right effusion and pneumonia/aspiration. Suspected retrocardiac infiltrate. The distal tip of the left arm PICC line is not well seen past the level of the left mid subclavian vein. Malone location is in the cavoatrial junction. Recommend advancement. <MYCVCSECTION> Microbiology Date/Time Source Procedure Growth Status 12/25/19 15:45 Blood Blood Culture - Preliminary NO GROWTH AFTER 4 DAYS Resulted 12/23/19 23:50 Nasopharynx SARS-CoV-2 RdRp Gene Assay - Final Complete 12/17/19 20:45 Indwelling Cath Urine Culture - Final Enterococcus Faecium - Vre Complete 12/12/19 21:00 Rectum - Final NO CARBAPENEM-RESISTANT ENTEROBACTERI... Complete Labs Test 12/28/19 20:33 12/29/19 04:00 12/29/19 08:07 12/30/19 05:50 White Blood Count 7.9 K/UL (4.8-10.8) 6.5 K/UL (4.8-10.8) Red Blood Count 3.12 M/UL (4.20-5.40) 3.17 M/UL (4.20-5.40) Hemoglobin 8.7 G/DL (12.0-16.0) 8.9 G/DL (12.0-16.0) Hematocrit 27.3 % (37.0-47.0) 28.2 % (37.0-47.0) Mean Corpuscular Volume 87 FL (80-99) 89 FL (80-99) Mean Corpuscular Hemoglobin 28.0 PG (27.0-31.0) 28.0 PG (27.0-31.0) Mean Corpuscular Hemoglobin Concent 32.0 G/DL (32.0-36.0) 31.5 G/DL (32.0-36.0) Red Cell Distribution Width 17.9 % (11.6-14.8) 20.1 % (11.6-14.8) Platelet Count 127 K/UL (150-450) 106 K/UL (150-450) Mean Platelet Volume 8.1 FL (6.5-10.1) 8.5 FL (6.5-10.1) Neutrophils (%) (Auto) % (45.0-75.0) % (45.0-75.0) Lymphocytes (%) (Auto) % (20.0-45.0) % (20.0-45.0) Monocytes (%) (Auto) % (1.0-10.0) % (1.0-10.0) Eosinophils (%) (Auto) % (0.0-3.0) % (0.0-3.0) Basophils (%) (Auto) % (0.0-2.0) % (0.0-2.0) Differential Total Cells Counted 100 100 Neutrophils % (Manual) 93 % (45-75) 96 % (45-75) Lymphocytes % (Manual) 6 % (20-45) 2 % (20-45) Monocytes % (Manual) 1 % (1-10) 2 % (1-10) Eosinophils % (Manual) 0 % (0-3) 0 % (0-3) Basophils % (Manual) 0 % (0-2) 0 % (0-2) Band Neutrophils 0 % (0-8) 0 % (0-8) Platelet Estimate Decreased Decreased Platelet Morphology Normal Normal Anisocytosis 2+ 2+ Arterial Blood pH 7.417 (7.350-7.450) Arterial Blood Partial Pressure CO2 46.2 mmHg (35.0-45.0) Arterial Blood Partial Pressure O2 94.6 mmHg (75.0-100.0) Arterial Blood HCO3 29.1 mmol/L (22.0-26.0) Arterial Blood Oxygen Saturation 96.5 % (95-100) Arterial Blood Base Excess 4.1 (-2-2) Eugene Test Positive Sodium Level 145 MMOL/L (136-145) 144 MMOL/L (136-145) Potassium Level 3.3 MMOL/L (3.5-5.1) 3.6 MMOL/L (3.5-5.1) Chloride Level 104 MMOL/L (98-107) 102 MMOL/L (98-107) Carbon Dioxide Level 29 MMOL/L (21-32) 31 MMOL/L (21-32) Anion Gap 12 mmol/L (5-15) 11 mmol/L (5-15) Blood Urea Nitrogen 76 mg/dL (7-18) 83 mg/dL (7-18) Creatinine 1.8 MG/DL (0.55-1.30) 1.9 MG/DL (0.55-1.30) Estimat Glomerular Filtration Rate 28.0 mL/min (>60) 26.3 mL/min (>60) Glucose Level 106 MG/DL (74-106) 133 MG/DL (74-106) Calcium Level 8.4 MG/DL (8.5-10.1) 8.9 MG/DL (8.5-10.1) Total Bilirubin 1.0 MG/DL (0.2-1.0) 1.1 MG/DL (0.2-1.0) Direct Bilirubin 0.5 MG/DL (0.0-0.3) 0.7 MG/DL (0.0-0.3) Aspartate Amino Transf (AST/SGOT) 22 U/L (15-37) 29 U/L (15-37) Alanine Aminotransferase (ALT/SGPT) 20 U/L (12-78) 24 U/L (12-78) Alkaline Phosphatase 96 U/L (46-116) 94 U/L (46-116) Total Protein 7.5 G/DL (6.4-8.2) 7.5 G/DL (6.4-8.2) Albumin 2.0 G/DL (3.4-5.0) 2.2 G/DL (3.4-5.0) Globulin 5.5 g/dL 5.3 g/dL Albumin/Globulin Ratio 0.4 (1.0-2.7) 0.4 (1.0-2.7) Polychromasia 2+ Hypochromasia 1+ Ferritin 503 NG/ML (8-388) C-Reactive Protein, Quantitative 11.8 mg/dL (0.00-0.90) Test 12/30/19 08:15 12/31/19 12:09 Arterial Blood pH 7.350 (7.350-7.450) 7.373 (7.350-7.450) Arterial Blood Partial Pressure CO2 56.2 mmHg (35.0-45.0) 55.4 mmHg (35.0-45.0) Arterial Blood Partial Pressure O2 85.4 mmHg (75.0-100.0) 105.0 mmHg (75.0-100.0) Arterial Blood HCO3 30.3 mmol/L (22.0-26.0) 31.5 mmol/L (22.0-26.0) Arterial Blood Oxygen Saturation 94.7 % (95-100) 96.5 % (95-100) Arterial Blood Base Excess 3.9 (-2-2) 5.5 (-2-2) Eugene Test Positive Positive Laboratory Tests Test 12/31/19 12:09 Arterial Blood pH 7.373 (7.350-7.450) Arterial Blood Partial Pressure CO2 55.4 mmHg (35.0-45.0) *H Arterial Blood Partial Pressure O2 105.0 mmHg (75.0-100.0) H Arterial Blood HCO3 31.5 mmol/L (22.0-26.0) H Arterial Blood Oxygen Saturation 96.5 % (95-100) Arterial Blood Base Excess 5.5 (-2-2) H Eugene Test Positive Current Medications Medications (Trade) Dose Ordered Sig/Shiraz Route PRN Reason Start Time Stop Time Status Last Admin Dose Admin Acetaminophen (Tylenol) 650 mg Q4H PRN NG Temp >100.5 12/22/19 16:00 01/11/20 22:14 12/23/19 13:53 Acetaminophen (Tylenol) 650 mg Q4H PRN NG Mild Pain (Pain Scale 1-3) 12/22/19 16:00 01/11/20 22:14 12/28/19 05:27 Albuterol Sulfate (Proventil MDI) 2 puff Q4H PRN INH Shortness of Breath 12/24/19 10:30 03/23/20 10:29 Bacitracin (Bacitracin 15gm tube) 1 applic BID TOPIC 12/22/19 18:00 03/12/20 08:59 12/31/19 09:05 Chlorhexidine Gluconate (Jessie-Hex 2%) 1 applic DAILY@1999 TOPIC 12/24/19 20:00 03/23/20 19:59 12/30/19 20:16 Chlorpromazine (Thorazine) 50 mg Q6H PRN IM agitation 12/30/19 02:30 01/29/20 02:29 12/31/19 09:04 Clotrimazole (Lotrimin) 1 applic TWICE A DAY TOPIC 12/22/19 18:00 03/12/20 08:59 12/31/19 09:04 Dexamethasone Sodium Phosphate (Decadron 10mg/ ml Inj) 6 mg DAILY IV 12/24/19 09:00 01/03/20 08:59 12/31/19 08:57 Dextrose (Dextrose 50%) 25 ml Q30M PRN IV Hypoglycemia 12/23/19 10:45 03/22/20 10:44 Dextrose (Dextrose 50%) 50 ml Q30M PRN IV Hypoglycemia 12/23/19 10:45 03/22/20 10:44 Diltiazem HCl (Cardizem Tab) 90 mg Q6HR NG 12/22/19 18:00 01/13/20 11:59 12/31/19 12:39 Docusate Sodium (Colace) 100 mg BID NG 12/25/19 09:00 01/24/20 08:59 12/31/19 08:58 Enoxaparin Sodium (Lovenox) 60 mg DAILY SUBQ 12/23/19 09:00 03/22/20 08:59 12/29/19 08:50 Famotidine (Pepcid I.v.) 20 mg Q12HR IVP 12/25/19 09:00 01/24/20 08:59 12/31/19 08:58 Fentanyl Citrate 250 ml @ 0 mls/hr Q24H IV 12/30/19 06:15 01/02/20 06:14 12/31/19 06:39 Furosemide (Lasix) 60 mg Q6HR IV 12/31/19 12:00 01/30/20 11:59 12/31/19 12:39 Heparin Sodium/ Sodium Chloride (Heparin 1000 units/500ml Premix) 1,000 unit ONCE PRN IV PICC LINE 12/31/19 07:15 01/02/20 07:14 Insulin Aspart (NovoLOG) BEFORE MEALS AND HS SUBQ 12/23/19 11:30 03/22/20 11:29 12/31/19 11:57 Lidocaine HCl (Xylocaine 1% 30ml) 30 ml ONCE PRN INJ PICC LINE 12/31/19 07:15 01/02/20 07:14 Linezolid 300 ml @ 300 mls/hr Q12HR IVPB 12/29/19 21:00 01/02/20 20:59 12/31/19 08:58 Magnesium Hydroxide (Mom) 30 ml HSPRN PRN NG Constipation 12/22/19 15:15 01/21/20 15:14 Meropenem 500 mg/ Sodium Chloride 55 ml @ 110 mls/hr Q12H IVPB 12/30/19 04:00 01/04/20 03:59 12/31/19 03:50 Metoprolol Tartrate (Lopressor) 50 mg Q12HR NG 12/22/19 21:00 03/18/20 20:59 12/31/19 09:36 Micafungin Sodium 100 mg/Sodium Chloride 110 ml @ 110 mls/hr Q24H IVPB 12/27/19 09:00 01/05/20 08:59 12/31/19 10:02 Midazolam HCl (Versed 2mg/2ml vial) 2 mg Q2H PRN IVP For Anxiety 12/31/19 14:30 01/07/20 14:29 12/31/19 15:03 Nitroglycerin (Ntg) 0.4 mg Q5M PRN SL Prn Chest Pain 12/22/19 15:00 01/11/20 22:14 Ondansetron HCl (Zofran) 4 mg Q6H PRN IVP Nausea & Vomiting 12/22/19 15:15 01/11/20 15:14 Polyethylene Glycol (Miralax) 17 gm BEDTIME NG 12/22/19 21:00 01/18/20 20:59 12/30/19 20:51 Polymyxin B Sulfate 345278 units/Dextrose 550 ml @ 550 mls/hr EVERY 12 HOURS IV 12/29/19 21:00 01/05/20 20:59 12/31/19 08:57 Quetiapine Fumarate (SEROqueL) 50 mg EVERY 8 HOURS ORAL 12/28/19 22:00 02/11/20 17:59 12/31/19 15:03 Aleisha Coronel MD Dec 31, 2019 15:34
--- NOTE | 2019-12-31 16:18 | Diagnostic Imaging Report ---
Indication: Post nasogastric tube placement Technique: Supine view of the. Upper Abdomen Comparison: 12/21/2019 Findings: There is a nasogastric tube in place, tip projected at the level gastric fundus, proximal port at or just beyond the expected level gastroesophageal junction. Visualized bowel gas is unremarkable. A calcification projects to the right of the lumbar spine, as previously. The included lower thorax demonstrates pulmonary disease Impression: Borderline position of nasogastric tube; likely okay but slight advancement would be prudent. This was discussed by charge nurse Cristin at the time of interpretation
--- NOTE | 2019-12-31 16:35 | NUR ---
NURSE NOTES: Advanced NGT 5 cm as directed by Dr. Reese. NGT at 72 cm.
--- NOTE | 2019-12-31 17:06 | NUR ---
NURSE NOTES: Let Dr. Carpio know about pt's increased work of breathing, increased peak pressures and restlessness. Dr. Carpio called ED MD up to re-tube patient. 30 mg etomidate IVP per ED MD order. Pt re-intubated with 7.5 ETT @ 25 cm @ the lip. CXR ordered. Or sat 99% on previous vent settings.
--- NOTE | 2019-12-31 17:36 | NUR ---
NURSE NOTES: Left upper arm PICC replaced by IR and Dr. Reese
--- NOTE | 2019-12-31 18:30 | NUR ---
RADIOLOGY NOTE: LEFT UPPER EXTREMITY PICC LINE REPLACEMENT BY DR. SHELLIE LIND. FA
--- NOTE | 2019-12-31 18:35 | NUR ---
NURSE NOTES: bed bath done. Pt repositioned. oral care done.
--- NOTE | 2019-12-31 18:49 | Brief Operative Note ---
Immediate Post Operative Note Operative Note Pre-op Diagnosis: misplaced PICC Procedure: PICC exchange Post-op Diagnosis: same as pre-op Surgeon: Miguel Adams Anesthesia: local Specimen: none Complications: none Fluids: none Implant(s) used?: No Josh Adams MD Dec 31, 2019 18:49
--- NOTE | 2019-12-31 18:58 | Diagnostic Imaging Report ---
Indications: Needs long-term IV access Technique: Procedure performed at bedside. Procedural timeout performed. No sonography utilized. Total sterile technique, including sterile probe cover and sterile gel, sterile gloves, hand hygiene, hat, mask,, sterile gown, large sterile drape, and preparation with 2% chlorhexidine utilized. Local anesthesia with 1% lidocaine. 1018 guidewire was inserted through the pre-existing catheter which had been pulled back, exchange for 4 Setswana peel-away sheath. 4 Setswana dual-lumen power PICC cut to 42 cm. It was inserted through the peel-away sheath. Peel-away sheath and guidewire removed. Catheter fixed to the skin. Both catheter ports aspirated and flushed. Patient tolerated procedure well, without immediate complication. Followup chest x-ray obtained, documents catheter tip position at the mid innominate vein Impression: Successful bedside placement of left arm PICC under sonographic guidance, as described above.
--- NOTE | 2019-12-31 19:20 | NUR ---
NURSE HAND-OFF REPORT: Latest Vital Signs: Temperature 99.2 , Pulse 52 , B/P 117 /52 , Respiratory Rate 13 , O2 SAT 98 , Mechanical Ventilator, O2 Flow Rate 12.0 . Vital Sign Comment: EKG Rhythm: Sinus Rhythm Rhythm change?: N Notified?: Elizabeth Fonseca MD Response: Order Received& Read Back Latest Abreu Fall Score: 50 Fall Risk: High Risk Safety Measures: Call light Within Reach, Bed Alarm Zone 1, Side Rails Side Rails x2, Bed position Low and Locked. Fall Precautions: Door Sign Report given to NOEL Brand.
--- NOTE | 2019-12-31 19:21 | NUR ---
NURSE NOTES: Patient received from NOEL Real. patient restless and agitated with 7.5 ETT at 24cm lipline on ventilator AC 20 TV 600 FiO 40% PEEP 5. BP115/88 HR114 Afib on monitor. Left nare NGT running Glucerna 1.5 @45ml/hr. Left Upper arm PICC line running fentanyl increased from 280 to 300mcg/hr to reach RASS -2. left hand #22 TKO. trivedi catheter draining to gravity. patient with right knee hematoma and dry open blisters, left ecchymosis, perineal excoriation, breast and stomach skin fold redness noted. patient on p200 mattress, repositioned and oral care provided.
[2019-12-31] MEDS: Dyna-Hex 2% Top Sol 2oz TOPIC SCH (19:56)
[2019-12-31] MEDS ORDERED: Dyna-Hex 2% Top Sol 2oz TOPIC SCH (20:00)
[2019-12-31] MEDS: Miralax 17gm pkt NG SCH (20:13)
--- NOTE | 2019-12-31 20:49 | NUR ---
NURSE NOTES: Patient anxious with suctioning and oral care. patient receiving fentanyl 300mcg/hr max. BP 134/80 HR 102 RR 20. PRN versed administered.
--- NOTE | 2019-12-31 21:29 | Psych Consult Progress Note ---
Psychiatry Progress Note Psychiatry Progress Note Subjective the pt is agitated and on bilat restraints. the pt is intubated and still gets agitated Medications Current Medications Medications (Trade) Dose Ordered Sig/Shiraz Route PRN Reason Start Time Stop Time Status Last Admin Dose Admin Acetaminophen (Tylenol) 650 mg Q4H PRN NG Temp >100.5 12/22/19 16:00 01/11/20 22:14 12/23/19 13:53 Acetaminophen (Tylenol) 650 mg Q4H PRN NG Mild Pain (Pain Scale 1-3) 12/22/19 16:00 01/11/20 22:14 12/28/19 05:27 Albuterol Sulfate (Proventil MDI) 2 puff Q4H PRN INH Shortness of Breath 12/24/19 10:30 03/23/20 10:29 Bacitracin (Bacitracin 15gm tube) 1 applic BID TOPIC 12/22/19 18:00 03/12/20 08:59 12/31/19 18:02 Chlorhexidine Gluconate (Jessie-Hex 2%) 1 applic DAILY@1999 TOPIC 12/24/19 20:00 03/23/20 19:59 12/31/19 19:56 Chlorpromazine (Thorazine) 50 mg Q6H PRN IM agitation 12/30/19 02:30 01/29/20 02:29 12/31/19 19:56 Clotrimazole (Lotrimin) 1 applic TWICE A DAY TOPIC 12/22/19 18:00 03/12/20 08:59 12/31/19 18:02 Dexamethasone Sodium Phosphate (Decadron 10mg/ ml Inj) 6 mg DAILY IV 12/24/19 09:00 01/03/20 08:59 12/31/19 08:57 Dextrose (Dextrose 50%) 25 ml Q30M PRN IV Hypoglycemia 12/23/19 10:45 03/22/20 10:44 Dextrose (Dextrose 50%) 50 ml Q30M PRN IV Hypoglycemia 12/23/19 10:45 03/22/20 10:44 Diltiazem HCl (Cardizem Tab) 90 mg Q6HR NG 12/22/19 18:00 01/13/20 11:59 12/31/19 18:02 Docusate Sodium (Colace) 100 mg BID NG 12/25/19 09:00 01/24/20 08:59 12/31/19 18:02 Enoxaparin Sodium (Lovenox) 60 mg DAILY SUBQ 12/23/19 09:00 03/22/20 08:59 12/29/19 08:50 Famotidine (Pepcid I.v.) 20 mg Q12HR IVP 12/25/19 09:00 01/24/20 08:59 12/31/19 20:13 Fentanyl Citrate 250 ml @ 0 mls/hr Q24H IV 12/30/19 06:15 01/02/20 06:14 12/31/19 18:35 Furosemide (Lasix) 60 mg Q6HR IV 12/31/19 12:00 01/30/20 11:59 12/31/19 18:02 Heparin Sodium/ Sodium Chloride (Heparin 1000 units/500ml Premix) 1,000 unit ONCE PRN IV PICC LINE 12/31/19 07:15 01/02/20 07:14 Insulin Aspart (NovoLOG) BEFORE MEALS AND HS SUBQ 12/23/19 11:30 03/22/20 11:29 12/31/19 20:31 Lidocaine HCl (Xylocaine 1% 30ml) 30 ml ONCE PRN INJ PICC LINE 12/31/19 07:15 01/02/20 07:14 Linezolid 300 ml @ 300 mls/hr Q12HR IVPB 12/31/19 21:00 01/04/20 20:59 12/31/19 20:13 Magnesium Hydroxide (Mom) 30 ml HSPRN PRN NG Constipation 12/22/19 15:15 01/21/20 15:14 Meropenem 500 mg/ Sodium Chloride 55 ml @ 110 mls/hr Q12H IVPB 12/30/19 04:00 01/04/20 03:59 12/31/19 17:04 Metoprolol Tartrate (Lopressor) 50 mg Q12HR NG 12/22/19 21:00 03/18/20 20:59 12/31/19 20:56 Micafungin Sodium 100 mg/Sodium Chloride 110 ml @ 110 mls/hr Q24H IVPB 12/27/19 09:00 01/05/20 08:59 12/31/19 10:02 Midazolam HCl (Versed 2mg/2ml vial) 2 mg Q2H PRN IVP For Anxiety 12/31/19 14:30 01/07/20 14:29 12/31/19 20:49 Nitroglycerin (Ntg) 0.4 mg Q5M PRN SL Prn Chest Pain 12/22/19 15:00 01/11/20 22:14 Ondansetron HCl (Zofran) 4 mg Q6H PRN IVP Nausea & Vomiting 12/22/19 15:15 01/11/20 15:14 Polyethylene Glycol (Miralax) 17 gm BEDTIME NG 12/22/19 21:00 01/18/20 20:59 12/31/19 20:13 Polymyxin B Sulfate 695127 units/Dextrose 550 ml @ 550 mls/hr EVERY 12 HOURS IV 12/29/19 21:00 01/05/20 20:59 12/31/19 20:12 Quetiapine Fumarate (SEROqueL) 50 mg EVERY 8 HOURS ORAL 12/28/19 22:00 02/11/20 17:59 12/31/19 15:03 Neurological/Psychiatric: Reports: anxiety, depressed, emotional problems Allergies: Coded Allergies: ERYTHROMYCIN BASE (Verified Allergy, Severe, 12/12/19) HALOPERIDOL (Verified Allergy, Unknown, 12/12/19) VANCOMYCIN (Unverified Adverse Reaction, Intermediate, Shortness of Breath, 12/12/19) Objective Data Height (Feet): 5 Height (Inches): 6.00 Weight (Pounds): 298 General Appearance: no apparent distress, confused, agitated Additional Comments: confused. Mood is anxious. Affect is flat. Assessment/Plan [place] I: haldol im prn morphine low dose 1mg q 6 prn seroquel dced ativan Status: stable Status Narrative haldol im prn morphine low dose 1mg q 6 prn seroquel dced ativan Assessment/Plan: thorazin IM seroquel 50 q 8 hr Harris Ballesteros MD Dec 31, 2019 21:29
--- NOTE | 2019-12-31 22:00 | NUR ---
NURSE NOTES: patient sedated to RASS -2 with 7.5 ETT at 24cm lipline on ventilator AC 20 TV 600 FiO2 40% PEEP 5. BP 95/70 HR 99 Afib on monitor. Left nare NGT running Glucerna 1.5 @45ml/hr. Left Upper arm PICC line running fentanyl 300mcg/hr. left hand #22 TKO. Lockett catheter draining light doretha urine. repositioned and oral care provided.
--- NOTE | 2019-12-31 22:18 | Emergency Room Report ---
History of Present Illness General Chief Complaint: Pain Source: Patient, Medical Record, PMD Present Illness Allergies: Coded Allergies: ERYTHROMYCIN BASE (Verified Allergy, Severe, 12/12/19) HALOPERIDOL (Verified Allergy, Unknown, 12/12/19) VANCOMYCIN (Unverified Adverse Reaction, Intermediate, Shortness of Breath, 12/12/19) COVID-19 Screening Contact w/high risk pt: No Experienced COVID-19 symptoms?: No COVID-19 Testing performed DOWEL PIN MAN: No COVID-19 Screening: Positive COVID-19 Patient History Last Menstrual Period: unknown Now: No Nursing Documentation-PMH Past Medical History Deferred: Pt Cognitively Impaired Past Medical History: Deferred Hx Cardiac Problems: Yes Hx Hypertension: Yes Hx Asthma: No Hx COPD: Yes Hx Cancer: No Hx Gastrointestinal Problems: Yes Hx Dialysis: No Hx Neurological Problems: Yes Hx Cerebrovascular Accident: No Hx Seizures: No Hx Weakness: Yes Hx Fatigue: Yes Hx Neurologic Surgery: No Physical Exam Vital Signs Date Time Temp Pulse Resp B/P (MAP) Pulse Ox O2 Delivery O2 Flow Rate FiO2 12/27/19 07:00 63 18 115/53 (73) 96 12/27/19 07:13 Mechanical Ventilator 40 12/27/19 08:00 100.1 12/28/19 16:59 40.0 Procedures Intubation Intubation : Consent: Emergent Intubation Method: orotracheal Tube Size (cm): 7.5 Medications: Etomidate Breath Sounds after Intubation: equal Intubation Complications: no complications Post Intubation Xray: Yes Attempts: One Patient Tolerated: Well Complications: None Medical Decision Making Diagnostic Impression: Primary Impression: Respiratory failure Additional Impression: Pneumonia ER Course Total critical care time: Approximately 15 minutes Due to a high probability of clinically significant, life threatening deterioration, the patient required the highest level of preparedness to intervene emergently and I personally spent this critical care time directly and personally managing the patient. This critical care time included obtaining a history, examining the patient, pulse oximetry, ordering and reviewing studies, ordering treatments, evaluating response to treatment and updating management plan as needed, frequent reassessment and discussion with other providers as well as arranging for ultimate disposition. This critical to care time was performed to assess and manage the high probability of life-threatening deterioration that could result in multiorgan failure. This critical care time is separate from the separately billable procedures and treating other patients. I was called by the patient's primary care provider that the patient's endotracheal tube in the ICU had become kinked and could no longer pass a suction catheter. When I arrived in the ICU the patient was saturating well with acute endotracheal tube. The patient was given etomidate and a bougie was passed through the patient's original endotracheal tube and a new endotracheal tube was exchanged over the bougie. Patient tolerated the procedure well. She maintained a normal oxygen saturation throughout and the only required 1 attempt. Post intubation chest x-ray was ordered. Last Vital Signs Date Time Temp Pulse Resp B/P (MAP) Pulse Ox O2 Delivery O2 Flow Rate FiO2 12/31/19 22:00 99 17 95/70 (78) 97 12/31/19 22:00 Mechanical Ventilator 40 12/31/19 20:00 97.7 12/30/19 16:31 40.0 Disposition: ADMITTED INPATIENT Condition: Critical Referrals: NOT CHOSEN ALISIA/,REFERRING (PCP) Cyril España M.D. Dec 31, 2019 22:18
[2020-01-01] VITALS (34 sets, daily range): BP systolic 63–146; BP diastolic 48–96
--- NOTE | 2020-01-01 | NUR ---
NURSE NOTES: patient sedated to RASS -2 with 7.5 ETT at 24cm lipline on ventilator AC 20 TV 600 FiO2 40% PEEP 5. BP 94/61 HR 82 Afib on monitor and afebrile. Left nare NGT running Glucerna 1.5 @45ml/hr. Left Upper arm PICC line running fentanyl 300mcg/hr. left hand #22 TKO. Lockett catheter draining light doretha urine. patient repositioned and oral care provided.
[2020-01-01] MEDS: Midazolam 2mg/2ml Inj IVP PRN ×7 (01:47→23:14)
--- NOTE | 2020-01-01 02:00 | NUR ---
NURSE NOTES: patient sedated to RASS -2 with 7.5 ETT at 24cm lipline on ventilator AC 20 TV 600 FiO2 40% PEEP 5. BP 100/49 HR 79 Afib on monitor and afebrile. patient less anxious after prn Versed administered. Left nare NGT running Glucerna 1.5 @45ml/hr. Left Upper arm PICC line running fentanyl 300mcg/hr, dressing changed. left hand #22 TKO. Lockett catheter draining to gravity. patient repositioned and oral care provided.
[2020-01-01] MEDS: fentaNYL 2500mcg/NS 250ml 250 ML IV SCH ×4 (02:09→22:11)
[2020-01-01] MEDS: Meropenem 500 MG in NS 55 ML IVPB SCH ×2 (03:04→17:07)
--- NOTE | 2020-01-01 03:24 | Cardiology Progress Note ---
Subjective DATE OF SERVICE: Dec 31, 2019 Doing poorly - remains in ICU in critical condition with guarded prognosis. Reintubated due to kinked tube. PICC line replaced today as well due to dislodgement. BP range has stabilized Remains COVID19 positive. Monitor: AFIb Persisting respiratory acidosis req'd intubation and mech ventilation - remains far from weaning. Had coffee ground material in NGTube and hematoma on right leg; anti-coagulation discont'd Venous Duplex: negative for DVT Renal fxn and free water deficit correcting CXR (12/30/19) Persisting right infiltrate and moderate effusion Objective Last 24 Hour Vital Signs Date Time Temp Pulse Resp B/P (MAP) Pulse Ox O2 Delivery O2 Flow Rate FiO2 01/01/20 03:00 17 125/63 Mechanical Ventilator 40 01/01/20 03:00 107 17 125/63 (83) 96 01/01/20 02:40 111 20 45 01/01/20 02:09 18 100/49 Mechanical Ventilator 40 01/01/20 02:00 79 18 100/49 (66) 96 01/01/20 02:00 18 100/49 Mechanical Ventilator 40 01/01/20 01:00 17 103/65 Mechanical Ventilator 40 01/01/20 01:00 105 17 103/65 (78) 98 01/01/20 00:00 98.8 82 20 94/61 (72) 98 01/01/20 00:00 20 94/61 Mechanical Ventilator 40 01/01/20 00:00 40 01/01/20 00:00 Mechanical Ventilator 01/01/20 00:00 94 12/31/19 23:36 89 92/61 12/31/19 23:00 80 20 109/53 (71) 98 12/31/19 23:00 20 109/53 Mechanical Ventilator 40 12/31/19 22:40 90 20 45 12/31/19 22:00 99 17 95/70 (78) 97 12/31/19 22:00 17 95/70 Mechanical Ventilator 40 12/31/19 21:00 20 101/48 Mechanical Ventilator 40 12/31/19 21:00 87 20 101/48 (65) 98 12/31/19 20:56 91 134/80 12/31/19 20:45 112 13 134/80 (98) 95 12/31/19 20:45 20 134/80 Mechanical Ventilator 40 12/31/19 20:00 111 12/31/19 20:00 97.7 120 17 113/79 (90) 98 12/31/19 20:00 18 113/79 Mechanical Ventilator 40 12/31/19 20:00 40 12/31/19 20:00 Mechanical Ventilator 12/31/19 19:45 20 115/88 Mechanical Ventilator 40 12/31/19 19:45 114 20 115/88 (97) 90 12/31/19 19:15 19 125/78 Mechanical Ventilator 40 12/31/19 19:15 111 17 125/78 (94) 98 12/31/19 19:00 19 115/67 Mechanical Ventilator 40 12/31/19 19:00 114 20 115/67 (83) 96 12/31/19 18:58 98 20 45 12/31/19 18:35 20 117/69 Mechanical Ventilator 40 12/31/19 18:02 114 122/72 12/31/19 18:00 107 25 122/72 (89) 92 12/31/19 17:11 40 12/31/19 17:00 124 18 130/74 (92) 89 12/31/19 16:09 18 115/85 Mechanical Ventilator 40 12/31/19 16:00 81 12/31/19 16:00 99.8 77 17 95/54 (68) 99 12/31/19 16:00 Mechanical Ventilator 12/31/19 15:09 19 126/66 Mechanical Ventilator 40 12/31/19 15:02 100 23 45 12/31/19 15:00 97 19 124/93 (103) 98 12/31/19 14:09 18 106/59 Mechanical Ventilator 40 12/31/19 14:00 89 13 112/53 (72) 95 12/31/19 13:09 18 142/69 Mechanical Ventilator 40 12/31/19 13:00 106 18 130/55 (80) 93 12/31/19 12:54 18 130/55 Mechanical Ventilator 40 12/31/19 12:39 19 128/60 Mechanical Ventilator 40 12/31/19 12:39 96 121/79 12/31/19 12:24 19 128/60 Mechanical Ventilator 40 12/31/19 12:09 19 114/74 Mechanical Ventilator 40 12/31/19 12:00 40 12/31/19 12:00 Mechanical Ventilator 12/31/19 12:00 78 12/31/19 12:00 99.5 91 18 112/61 (78) 99 12/31/19 11:39 19 112/61 Mechanical Ventilator 40 12/31/19 11:21 100 20 45 12/31/19 11:09 20 106/56 Mechanical Ventilator 40 12/31/19 11:00 99 21 123/79 (94) 98 12/31/19 10:09 17 116/66 Mechanical Ventilator 40 12/31/19 10:00 91 14 109/64 (79) 99 12/31/19 09:36 105 134/68 12/31/19 09:11 98 12/31/19 09:09 16 134/66 Mechanical Ventilator 40 12/31/19 09:00 105 20 144/75 (98) 63 12/31/19 08:39 18 101/76 Mechanical Ventilator 40 12/31/19 08:24 20 131/69 Mechanical Ventilator 40 12/31/19 08:09 18 126/61 Mechanical Ventilator 40 12/31/19 08:00 40 12/31/19 08:00 99.9 114 18 129/72 (91) 100 12/31/19 08:00 Mechanical Ventilator 12/31/19 08:00 101 12/31/19 07:39 18 121/79 Mechanical Ventilator 40 12/31/19 07:24 100 19 45 12/31/19 06:55 120 19 111/75 (87) 83 12/31/19 06:39 60 105/112 Mechanical Ventilator 40 12/31/19 06:31 18 118/50 Mechanical Ventilator 40 12/31/19 06:00 100.3 97 51/34 (40) 98 12/31/19 05:43 113 123/54 12/31/19 05:31 18 122/54 Mechanical Ventilator 40 12/31/19 05:00 103 17 136/63 (87) 97 12/31/19 04:31 18 122/54 Mechanical Ventilator 40 12/31/19 04:30 90 18 135/55 (81) 97 12/31/19 04:15 81 120/60 (80) 96 12/31/19 04:00 94 12/31/19 04:00 Mechanical Ventilator 12/31/19 04:00 40 12/31/19 04:00 98.8 108 137/53 (81) 83 12/31/19 03:45 105 22 118/55 (76) 82 12/31/19 03:31 18 135/55 Mechanical Ventilator 40 12/31/19 03:30 98 26 134/78 (96) 12/31/19 03:30 97 23 45 ROS: unchanged from 12/12/19 HEENT: Orally intubated, Mechanically Ventilated, Thin secretions ET Tube, other - NGtube RHYTHM: NSR, ST LUNGS: diminished breath sounds, right-sided rhonchi CARDIAC: normal S1 and S2, irregularly irregular ABDOMEN: other - obese EXTREMITIES: moderate edema - mostly non pitting, other - hematoma right leg Laboratory Tests Test 12/31/19 12:09 12/31/19 20:20 Arterial Blood pH 7.373 (7.350-7.450) Arterial Blood Partial Pressure CO2 55.4 mmHg (35.0-45.0) *H Arterial Blood Partial Pressure O2 105.0 mmHg (75.0-100.0) H Arterial Blood HCO3 31.5 mmol/L (22.0-26.0) H Arterial Blood Oxygen Saturation 96.5 % (95-100) Arterial Blood Base Excess 5.5 (-2-2) H Eugene Test Positive POC Whole Blood Glucose Pending Assessment/Plan Assessment/Plan CRITICAL AND GUARDED Acute respiratory failure Acute on chronic respiratory acidosis AFiB with labile heart rates CHF, ac/chr diast - compensated BLE edema Sepsis with shock obesity COPD with bronchospasm Acute renal failure - worsening Pleural effusion GI bleeding Acute diastolic CHF Covid 19 PNA Hypokalemia Vent support Monitor acid/base parameters. Antimicrobials Titrate rate-control meds - hold digitalis for elevated levels. Maintain diltiazem and metoprolol. DC apixaban - hold anticoagulation due to GI bleeding; resume with GI clearance. Continued cardiac exercise specialist Diuresis based on clinical parameters; trend BNP May need trach Potassiums suppl Possible thorocentesis per pulmonary Agree with consideration for DNR Jerome Meek MD Jan 01, 2020 03:24
--- NOTE | 2020-01-01 04:00 | NUR ---
NURSE NOTES: patient sedated to RASS -2 with 7.5 ETT at 24cm lipline on ventilator AC 20 TV 600 FiO2 40% PEEP 5. BP 115/ HR Afib on monitor and afebrile. Left nare NGT clamped and patent for morning weaning. Left Upper arm PICC line running fentanyl 300mcg/hr. left hand #22 TKO. Lockett catheter draining light doretha urine. patient bathed, repositioned and oral care provided.
[2020-01-01] MEDS: dilTIAZem HCl 90mg tab NG SCH ×4 (05:05→23:16)
[2020-01-01] MEDS: NovoLOG Insulin Flexpen SUBQ SCH ×4 (05:20→21:00)
[2020-01-01 05:52] LABS: HEMATOCRIT 22.7 % (37.0-47.0); HEMOGLOBIN 7.3 G/DL (12.0-16.0); MEAN CORPUSCULAR VOLUME 88 FL (80-99); PLATELET COUNT 84 K/UL (150-450); RED BLOOD COUNT 2.58 M/UL (4.20-5.40); RED CELL DISTRIBUTION WIDTH 18.8 % (11.6-14.8); WHITE BLOOD COUNT 2.7 K/UL (4.8-10.8)
--- NOTE | 2020-01-01 06:00 | NUR ---
NURSE NOTES: sedation decreased with patient awake and restless for morning weaning with 7.5 ETT at 24cm lipline on ventilator AC 20 TV 600 FiO2 45% PEEP 5. BP 118/77 HR 102 Afib on monitor and afebrile. Left nare NGT clamped and patent for morning weaning. Left Upper arm PICC line decreased Fentanyl to 75 mcg/hr for morning weaning. left hand #22 TKO. Lockett catheter draining light doretha urine. patient with right knee hematoma and dry open blisters, left ecchymosis, perineal excoriation, breast and stomach skin fold redness noted. patient on p200 mattress, patient repositioned and oral care provided.
[2020-01-01 06:23] LABS: ANION GAP 6 mmol/L (5-15); BLOOD UREA NITROGEN 80 mg/dL (7-18); CALCIUM 8.6 MG/DL (8.5-10.1); CARBON DIOXIDE 35 MMOL/L (21-32); CHLORIDE 105 MMOL/L (98-107); CREATINE KINASE 65 U/L (26-308); CREATININE 1.5 MG/DL (0.55-1.30); POTASSIUM 3.7 MMOL/L (3.5-5.1); SODIUM 146 MMOL/L (136-145)
--- NOTE | 2020-01-01 07:19 | NUR ---
RESPIRATORY THERAPIST NOTES: Unable to wean Charisse due to tachycardia >140.
--- NOTE | 2020-01-01 07:24 | NUR ---
NURSE HAND-OFF REPORT: Latest Vital Signs: Temperature 98.8 , Pulse 138 , B/P 118 /77 , Respiratory Rate 25 , O2 SAT 94 , Mechanical Ventilator, O2 Flow Rate . Vital Sign Comment: HR elevated due to weaning EKG Rhythm: Atrial Fibrillation Rhythm change?: N Notified?: Elizabeth Meek MD Response: Latest Abreu Fall Score: 75 Fall Risk: High Risk Safety Measures: Call light Within Reach, Bed Alarm Zone 2, Side Rails Side Rails x3, Bed position Low and Locked. Fall Precautions: Yellow Socks Report given to NOEL Galvan.
--- NOTE | 2020-01-01 08:00 | NUR ---
NURSE NOTES: Pt was assessed after receiving change of shift report from Cathie COHEN. Pt is agitated, currently on sedation vacation for weaning trials per MD order, while Fentanyl drip is now at 37.5mcg/hr, infusing via left UA double lumen PICC line. Orally intubated, ETT 7.5 @24cm lipline with vent settingss AC20, VT600, Peep 5.0, FIO2 45% currently at 100% O2Sat. AFib on patient monitor, HR fluctuating from 110 to 122 bmp. NGT via left nare with feeding Glucerna 1.5, currently on hold for weaning trial. Lockett catheter is present, draining, clear/dark yellow urine. Skin alterations are noted. Pt is on pressure release mattress and cooling blanket, with body temp being monitored via rectal tube. Bed is locked, HOB at 30 degrees, three side rails up, and bed in lowest position. Bilateral soft wrist restraints are in place to prevent self-extubation, as pt is impulsive and observed attempting to reach for ET tube. Skin and vascular integrity at restraint site remains within normal limits. Will continue with plan of care.
[2020-01-01] MEDS: Polymyxin B Sulfate 500,000 UNITS in D5W 500ml 550 ML IV SCH ×2 (08:37→20:39)
[2020-01-01] MEDS: dexAMETHasone 10mg/ml Inj IV SCH (08:37)
[2020-01-01] MEDS: Micafungin 100 MG in NS 110 ML IVPB SCH (08:38)
[2020-01-01] MEDS: Bacitracin Oint 15gm Tube TOPIC SCH ×2 (08:39→17:08)
[2020-01-01] MEDS: Docusate 100mg/10ml Liq NG SCH ×2 (08:39→17:08)
[2020-01-01] MEDS: Enoxaparin 60mg Inj SUBQ SCH (08:42)
[2020-01-01] MEDS: Metoprolol Tartrate 50mg tab NG SCH ×2 (09:00→20:40)
--- NOTE | 2020-01-01 09:00 | NUR ---
NURSE NOTES: Thorazine IM and Versed IVP were administered per PRN order for agitation and anxiety, as pt is observed kicking with legs. Fentanyl drip was resumed, at previous rate of 300mcg/hr (prior to titrating down for sedation vacation for weaning trials.) All other AM meds were administered. Lovenox and Metoprolol were held due to platelet 84, and hypotension 70's/50's. Pt failed weaning trials, HR elevated to 150, RR 40's, and pt desaturated below 90's. Pt was placed back on previous AC vent settings. Oral care was done.
--- NOTE | 2020-01-01 10:06 | Pulmonolgy Critical Care Note ---
Critical Care - Asmt/Plan Assessment/Plan: ASSESSMENT acute hypoxemic hypercapnic resp failure, requiring intubation 12/22 COVID 19 PNA sepsis fungemia UTI with E coli ESBL UTI VRE possible aspiration PNA Moderate R pleural effusion COPD Bronchospasm Atrial fibrillation with rapid ventricular response Congestive heart failure Acute renal failure on CKD Severe anemia Probable GI bleeding Thrombocytopenia Status post ground fall Tobacco dependency Morbid obesity probably GARY Homeless R knee edema and hematoma, likely sprain /strain post fall PLAN OF CARE ICU intubated 12/22 ABG stable this am, keep settings as is and titrate Fio2 to keep sat above 90% CXR for this am pending MDI Albuterol in line with vent fup with CXR and ABG will evaluate for thoracentesis when more stable started on weaning trials with high PS settings as ordered, goal MV 10 started on weaning: this am 12/31- not tolerated, became anxious and tachycardic with HR>140 , placed back on AC continue as tolerated steroids IV ( started 12/23) continue for total of 10 days till 01/01 Remdesivir (started 12/24 ), dc 12/30 initial diagnoses with COVID 19 at [facility] 11/29, was not hypoxic and not intubated, was not treated with Remdesivivr , only received empiric abx for PNA sedation with Fentanyl gtt - down titrate as tolerated for weaning trials DVT prophylaxis with Lovenox prior Venous Duplex BLE -NGT COVID 19 by PCR 12/22 positive isolation [place] 6 52 , initial CRP 15.6, ferritin 769, fup with inflammatory markers CRP 12/29 - down to 11.8 ; ferritin down to 503 on diuresis with Lasix , monitor volumes closely creat remains stable rate control- per cardio recs: monitor volumes pro BNP trending down ECHO with pEF no evidence of WMA GI prophylaxis with PPI s/p Venofer x 2 s/p blood transfusion 12/25 monitor HH with goal to keep Hgb >7 GI procedure when stable monitor PLT counts renal US no hydro, BL nonobstructive stones s/p IV hydration, now resumed again per nephro monitor renal parameters, lytes , e/lyte management as per nephro recs UCX 12/11 + E coli ESBL, BCX 12/16 1/2 + yeast, fup with yeast ID, ? source BCX 12/17 NGTD BCX 12/22 and 12/24 NGTD UCX 12/16 VRE SCX 12/19 MRSA, ACB MDR now on meropenem , micafungin , Polymyxin as per ID recs; Zyvox -completed cooling blanket prn fevers prior X ray R knee given fall 12/15 , large hematoma, swelling-no fx or dislocation ice R knee and elevate CT head no acute IC pathology fall precautions prior declined Nicotine patch discussion on weight loss if receptive - not at this time; anxious and wants to go home pain management anxiolytic prn SW consult for placement evaluated by bioethics -> DNR/DNI status appropriate given current critical condition , grave prognosis and multiple comorbidities, would recommend DNR/DNI status as well case discussed and evaluated by supervising physician ivy mccarty for a consult! Critical Care - Objective Last 24 Hour Vital Signs Date Time Temp Pulse Resp B/P (MAP) Pulse Ox O2 Delivery O2 Flow Rate FiO2 01/01/20 09:00 99 83/61 01/01/20 07:17 138 25 45 01/01/20 07:00 17 101/61 Mechanical Ventilator 45 01/01/20 07:00 135 17 101/61 (74) 96 01/01/20 06:00 18 118/77 Mechanical Ventilator 45 01/01/20 06:00 102 18 118/77 (91) 94 01/01/20 05:05 91 106/66 01/01/20 05:00 92 18 106/66 (79) 94 01/01/20 05:00 18 106/66 Mechanical Ventilator 40 01/01/20 04:00 40 01/01/20 04:00 Mechanical Ventilator 01/01/20 04:00 16 116/59 Mechanical Ventilator 40 01/01/20 04:00 107 16 116/59 (78) 94 01/01/20 04:00 93 01/01/20 03:00 17 125/63 Mechanical Ventilator 40 01/01/20 03:00 107 17 125/63 (83) 96 01/01/20 02:40 111 20 45 01/01/20 02:09 18 100/49 Mechanical Ventilator 40 01/01/20 02:00 79 18 100/49 (66) 96 01/01/20 02:00 18 100/49 Mechanical Ventilator 40 01/01/20 01:00 17 103/65 Mechanical Ventilator 40 01/01/20 01:00 105 17 103/65 (78) 98 01/01/20 00:00 98.8 82 20 94/61 (72) 98 01/01/20 00:00 20 94/61 Mechanical Ventilator 40 01/01/20 00:00 40 01/01/20 00:00 Mechanical Ventilator 01/01/20 00:00 94 12/31/19 23:36 89 92/61 12/31/19 23:00 80 20 109/53 (71) 98 12/31/19 23:00 20 109/53 Mechanical Ventilator 40 12/31/19 22:40 90 20 45 12/31/19 22:00 99 17 95/70 (78) 97 12/31/19 22:00 17 95/70 Mechanical Ventilator 40 12/31/19 21:00 20 101/48 Mechanical Ventilator 40 12/31/19 21:00 87 20 101/48 (65) 98 12/31/19 20:56 91 134/80 12/31/19 20:45 112 13 134/80 (98) 95 12/31/19 20:45 20 134/80 Mechanical Ventilator 40 12/31/19 20:00 111 12/31/19 20:00 97.7 120 17 113/79 (90) 98 12/31/19 20:00 18 113/79 Mechanical Ventilator 40 12/31/19 20:00 40 12/31/19 20:00 Mechanical Ventilator 12/31/19 19:45 20 115/88 Mechanical Ventilator 40 12/31/19 19:45 114 20 115/88 (97) 90 12/31/19 19:15 19 125/78 Mechanical Ventilator 40 12/31/19 19:15 111 17 125/78 (94) 98 12/31/19 19:00 19 115/67 Mechanical Ventilator 40 12/31/19 19:00 114 20 115/67 (83) 96 12/31/19 18:58 98 20 45 12/31/19 18:35 20 117/69 Mechanical Ventilator 40 12/31/19 18:02 114 122/72 12/31/19 18:00 107 25 122/72 (89) 92 12/31/19 17:11 40 12/31/19 17:00 124 18 130/74 (92) 89 12/31/19 16:09 18 115/85 Mechanical Ventilator 40 12/31/19 16:00 81 12/31/19 16:00 99.8 77 17 95/54 (68) 99 12/31/19 16:00 Mechanical Ventilator 12/31/19 15:09 19 126/66 Mechanical Ventilator 40 12/31/19 15:02 100 23 45 12/31/19 15:00 97 19 124/93 (103) 98 12/31/19 14:09 18 106/59 Mechanical Ventilator 40 12/31/19 14:00 89 13 112/53 (72) 95 12/31/19 13:09 18 142/69 Mechanical Ventilator 40 12/31/19 13:00 106 18 130/55 (80) 93 12/31/19 12:54 18 130/55 Mechanical Ventilator 40 12/31/19 12:39 19 128/60 Mechanical Ventilator 40 12/31/19 12:39 96 121/79 12/31/19 12:24 19 128/60 Mechanical Ventilator 40 12/31/19 12:09 19 114/74 Mechanical Ventilator 40 12/31/19 12:00 40 12/31/19 12:00 Mechanical Ventilator 12/31/19 12:00 78 12/31/19 12:00 99.5 91 18 112/61 (78) 99 12/31/19 11:39 19 112/61 Mechanical Ventilator 40 12/31/19 11:21 100 20 45 12/31/19 11:09 20 106/56 Mechanical Ventilator 40 12/31/19 11:00 99 21 123/79 (94) 98 12/31/19 10:09 17 116/66 Mechanical Ventilator 40 12/31/19 10:00 91 14 109/64 (79) 99 Objective: CONDITION: critical General Appearance: morbidly obese , sedated, on vent AC 600-20-40% PEEP 5 Lines, tubes and drains: LUE PICC new , intact HEENT: normocephalic, atraumatic, anicteric, NGT in , OP with ET Neck: non-tender Respiratory/Chest: chest wall non-tender, no accessory muscle use, scattered rhonchi Cardiovascular/Chest: irregularly irregular - A fib , tachy at times , distant heart sounds, Abdomen: normal bowel sounds, non tender , obese, soft : [place] Extremities: no calf tenderness, moderate edema - +3 BLE, R knee with large hematoma, edema, Skin Exam: warm/dry, multiple tattoos Neurologic: sedated Musculoskeletal: normal muscle bulk Accucheck: 93 Critical Care - Subjective ROS Limited/Unobtainable: Yes Interval Events: not tolerated weaning this am, was off sedation, became very anxious. HR went above 140, placed back on AVC ABG stable on current settings no fevers today, but fevers all day yesterday intermittently no leukocytosis PICC line reinserted 12/30 Hgb down to 7.3, WBC down to 2.7 sedated : Fentanyl titrated to 37.5 mcg/hr still on steroids, off remdesivir since 12/30 Condition: critical IV Access: PICC - LUE OICC intact EKG Rhythm: Atrial Fibrillation FI02: 45 Vent Support Breath Rate: 20 Vent Support Mode: AC Vent Tidal Volume: 600 Sputum Amount: Scant - white color, thin consistency PEEP: 5.0 PIP: 41 Drips: Fentanyl gtt 37.5 mcg/hr Tube Feeding Amount: 0 I&O: Intake and Output 12/31/19 01/01/20 19:00 07:00 Intake Total 1092.75 ml 1576.75 ml Output Total 1270 ml 1535 ml Balance -177.25 ml 41.75 ml Free Water 60 ml IV Total 932.75 ml 1196.75 ml Tube Feeding 160 ml 320 ml Output Urine Total 1270 ml 1535 ml CXR: CXR 12/29 Little interval change in moderate right effusion and pneumonia/aspiration. Suspected retrocardiac infiltrate. The distal tip of the left arm PICC line is not well seen past the level of the left mid subclavian vein. [place] location is in the cavoatrial junction. Recommend advancement. ET-Tube: 7.5 ET Position: 24 Luz Bowen NP Jan 01, 2020 10:06
--- NOTE | 2020-01-01 10:20 | General Progress Note ---
Subjective ROS Limited/Unobtainable: No Allergies: Coded Allergies: ERYTHROMYCIN BASE (Verified Allergy, Severe, 12/12/19) HALOPERIDOL (Verified Allergy, Unknown, 12/12/19) VANCOMYCIN (Unverified Adverse Reaction, Intermediate, Shortness of Breath, 12/12/19) Objective Last 24 Hour Vital Signs Date Time Temp Pulse Resp B/P (MAP) Pulse Ox O2 Delivery O2 Flow Rate FiO2 01/01/20 09:00 99 83/61 01/01/20 07:17 138 25 45 01/01/20 07:00 17 101/61 Mechanical Ventilator 45 01/01/20 07:00 135 17 101/61 (74) 96 01/01/20 06:00 18 118/77 Mechanical Ventilator 45 01/01/20 06:00 102 18 118/77 (91) 94 01/01/20 05:05 91 106/66 01/01/20 05:00 92 18 106/66 (79) 94 01/01/20 05:00 18 106/66 Mechanical Ventilator 40 01/01/20 04:00 40 01/01/20 04:00 Mechanical Ventilator 01/01/20 04:00 16 116/59 Mechanical Ventilator 40 01/01/20 04:00 107 16 116/59 (78) 94 01/01/20 04:00 93 01/01/20 03:00 17 125/63 Mechanical Ventilator 40 01/01/20 03:00 107 17 125/63 (83) 96 01/01/20 02:40 111 20 45 01/01/20 02:09 18 100/49 Mechanical Ventilator 40 01/01/20 02:00 79 18 100/49 (66) 96 01/01/20 02:00 18 100/49 Mechanical Ventilator 40 01/01/20 01:00 17 103/65 Mechanical Ventilator 40 01/01/20 01:00 105 17 103/65 (78) 98 01/01/20 00:00 98.8 82 20 94/61 (72) 98 01/01/20 00:00 20 94/61 Mechanical Ventilator 40 01/01/20 00:00 40 01/01/20 00:00 Mechanical Ventilator 01/01/20 00:00 94 12/31/19 23:36 89 92/61 12/31/19 23:00 80 20 109/53 (71) 98 12/31/19 23:00 20 109/53 Mechanical Ventilator 40 12/31/19 22:40 90 20 45 12/31/19 22:00 99 17 95/70 (78) 97 12/31/19 22:00 17 95/70 Mechanical Ventilator 40 12/31/19 21:00 20 101/48 Mechanical Ventilator 40 12/31/19 21:00 87 20 101/48 (65) 98 12/31/19 20:56 91 134/80 12/31/19 20:45 112 13 134/80 (98) 95 12/31/19 20:45 20 134/80 Mechanical Ventilator 40 12/31/19 20:00 111 12/31/19 20:00 97.7 120 17 113/79 (90) 98 12/31/19 20:00 18 113/79 Mechanical Ventilator 40 12/31/19 20:00 40 12/31/19 20:00 Mechanical Ventilator 12/31/19 19:45 20 115/88 Mechanical Ventilator 40 12/31/19 19:45 114 20 115/88 (97) 90 12/31/19 19:15 19 125/78 Mechanical Ventilator 40 12/31/19 19:15 111 17 125/78 (94) 98 12/31/19 19:00 19 115/67 Mechanical Ventilator 40 12/31/19 19:00 114 20 115/67 (83) 96 12/31/19 18:58 98 20 45 12/31/19 18:35 20 117/69 Mechanical Ventilator 40 12/31/19 18:02 114 122/72 12/31/19 18:00 107 25 122/72 (89) 92 12/31/19 17:11 40 12/31/19 17:00 124 18 130/74 (92) 89 12/31/19 16:09 18 115/85 Mechanical Ventilator 40 12/31/19 16:00 81 12/31/19 16:00 99.8 77 17 95/54 (68) 99 12/31/19 16:00 Mechanical Ventilator 12/31/19 15:09 19 126/66 Mechanical Ventilator 40 12/31/19 15:02 100 23 45 12/31/19 15:00 97 19 124/93 (103) 98 12/31/19 14:09 18 106/59 Mechanical Ventilator 40 12/31/19 14:00 89 13 112/53 (72) 95 12/31/19 13:09 18 142/69 Mechanical Ventilator 40 12/31/19 13:00 106 18 130/55 (80) 93 12/31/19 12:54 18 130/55 Mechanical Ventilator 40 12/31/19 12:39 19 128/60 Mechanical Ventilator 40 12/31/19 12:39 96 121/79 12/31/19 12:24 19 128/60 Mechanical Ventilator 40 12/31/19 12:09 19 114/74 Mechanical Ventilator 40 12/31/19 12:00 40 12/31/19 12:00 Mechanical Ventilator 12/31/19 12:00 78 12/31/19 12:00 99.5 91 18 112/61 (78) 99 12/31/19 11:39 19 112/61 Mechanical Ventilator 40 12/31/19 11:21 100 20 45 12/31/19 11:09 20 106/56 Mechanical Ventilator 40 12/31/19 11:00 99 21 123/79 (94) 98 Intake and Output 12/31/19 01/01/20 19:00 07:00 Intake Total 1092.75 ml 1576.75 ml Output Total 1270 ml 1535 ml Balance -177.25 ml 41.75 ml Free Water 60 ml IV Total 932.75 ml 1196.75 ml Tube Feeding 160 ml 320 ml Output Urine Total 1270 ml 1535 ml Laboratory Tests 12/31/19 12:09: Arterial Blood pH 7.373, Arterial Blood Partial Pressure CO2 55.4*H, Arterial Blood Partial Pressure O2 105.0H, Arterial Blood HCO3 31.5H, Arterial Blood O xygen Saturation 96.5, Arterial Blood Base Excess 5.5H, Eugene Test Positive 12/31/19 20:20: POC Whole Blood Glucose [Pending] 01/01/20 04:00: White Blood Count 2.7L, Red Blood Count 2.58L, Hemoglobin 7.3L, Hematocrit 22.7L , Mean Corpuscular Volume 88, Mean Corpuscular Hemoglobin 28.2, Mean Corpuscular Hemoglobin Concent 32.0, Red Cell Distribution Width 18.8H, Platelet Count 84L, Mean Platelet Volume 7.9, Neutrophils (%) (Auto) , Lymphocytes (%) (Auto) , Monocytes (%) (Auto) , Eosinophils (%) (Auto) , Basophils (%) (Auto) , Differential Total Cells Counted 100, Neutrophils % (Manual) 72, Lymphocytes % (Manual) 16L, Monocytes % (Manual) 3, Eosinophils % (Manual) 0, Basophils % (Manual) 0, Band Neutrophils 9H, Platelet Estimate DecreasedL, Platelet Morphology Normal, Anisocytosis 1+, Sodium Level 146H, Potassium Level 3.7, Chloride Level 105, Carbon Dioxide Level 35H, Anion Gap 6, Blood Urea Nitrogen 80H, Creatinine 1.5H, Estimat Glomerular Filtration Rate 34.7, Glucose Level 81, Calcium Level 8.6, Total Creatine Kinase 65 01/01/20 07:39: Arterial Blood pH 7.440, Arterial Blood Partial Pressure CO2 48.8H, Arterial Blood Partial Pressure O2 94.7, Arterial Blood HCO3 32.4H, Arterial Blood Oxygen Saturation 96.8, Arterial Blood Base Excess 7.4H, Eugene Test Positive Height (Feet): 5 Height (Inches): 6.00 Weight (Pounds): 298 General Appearance: no apparent distress EENT: normal ENT inspection Neck: supple Cardiovascular: normal rate Respiratory/Chest: decreased breath sounds Abdomen: normal bowel sounds, non tender, soft Extremities: non-tender Assessment/Plan Problem List: (1) CKD (chronic kidney disease) stage 3, GFR 30-59 ml/min ICD Codes: N18.3 - Chronic kidney disease, stage 3 (moderate) SNOMED: 059514641 (2) COPD (chronic obstructive pulmonary disease) ICD Codes: J44.9 - Chronic obstructive pulmonary disease, unspecified SNOMED: 59337387 (3) Smoker ICD Codes: F17.200 - Nicotine dependence, unspecified, uncomplicated SNOMED: 69429127 (4) GERD (gastroesophageal reflux disease) ICD Codes: K21.9 - Gastro-esophageal reflux disease without esophagitis SNOMED: 547220319 (5) Atrial fibrillation with RVR ICD Codes: I48.91 - Unspecified atrial fibrillation SNOMED: 029053492044346 Status: stable Assessment/Plan: ngtf pepcid fu H&H monitor labs bowel regimen fu cardiology recs icu care pending bioethic consult TF per dietitian recommendations ppi cbc in am Mervin Victoria MD Jan 01, 2020 10:20
--- NOTE | 2020-01-01 10:22 | NUR ---
NURSE NOTES: Dr. Ballesteros was contacted regarding pt's agitation and restlessness despite being maintained on max dose of Fentanyl drip at 300mcg/hr and PRN doses of Versed 2mg IVP and Thorazine 50mg IM. MD notified regarding continued restless despite the current med/regimen. No new orders were receiving at this time.
--- NOTE | 2020-01-01 12:50 | NUR ---
NURSE NOTES: Pt was administered Versed 2mg IVP per PRN order for anxiety, as pt is noted to be restless while she is also on Fentanyl drip at max dose 300mcg/hr. Scanner inside COVID-room unable to scan this barcode, manual admin via eMAR was done. Spoke with Kelli pharmacist.
--- NOTE | 2020-01-01 13:03 | General Progress Note ---
Subjective ROS Limited/Unobtainable: Yes Allergies: Coded Allergies: ERYTHROMYCIN BASE (Verified Allergy, Severe, 12/12/19) HALOPERIDOL (Verified Allergy, Unknown, 12/12/19) VANCOMYCIN (Unverified Adverse Reaction, Intermediate, Shortness of Breath, 12/12/19) Objective Last 24 Hour Vital Signs Date Time Temp Pulse Resp B/P (MAP) Pulse Ox O2 Delivery O2 Flow Rate FiO2 01/01/20 12:58 109 133/76 01/01/20 12:30 109 19 133/76 (95) 100 01/01/20 12:00 20 114/61 Mechanical Ventilator 45 01/01/20 12:00 99.0 103 17 114/61 (78) 100 01/01/20 11:28 102 20 45 01/01/20 11:00 97 17 105/59 (74) 100 01/01/20 11:00 19 105/59 Mechanical Ventilator 45 01/01/20 10:30 95 19 101/88 (92) 99 01/01/20 10:00 18 119/76 Mechanical Ventilator 45 01/01/20 10:00 98 20 106/64 (78) 100 01/01/20 09:30 94 19 83/62 (69) 98 01/01/20 09:00 99 12 91/72 (78) 100 01/01/20 09:00 25 110/70 Mechanical Ventilator 40.0 45 01/01/20 09:00 99 83/61 01/01/20 08:46 107 14 74/50 (58) 98 01/01/20 08:45 103 19 109/69 (82) 100 01/01/20 08:15 108 18 63/48 (53) 100 01/01/20 08:00 Mechanical Ventilator 01/01/20 08:00 98.0 110 18 104/60 (75) 98 01/01/20 08:00 102 01/01/20 08:00 40 01/01/20 07:17 138 25 45 01/01/20 07:00 17 101/61 Mechanical Ventilator 45 01/01/20 07:00 135 17 101/61 (74) 96 01/01/20 06:00 18 118/77 Mechanical Ventilator 45 01/01/20 06:00 102 18 118/77 (91) 94 01/01/20 05:05 91 106/66 01/01/20 05:00 92 18 106/66 (79) 94 01/01/20 05:00 18 106/66 Mechanical Ventilator 40 01/01/20 04:00 40 01/01/20 04:00 Mechanical Ventilator 01/01/20 04:00 16 116/59 Mechanical Ventilator 40 01/01/20 04:00 107 16 116/59 (78) 94 01/01/20 04:00 93 01/01/20 03:00 17 125/63 Mechanical Ventilator 40 01/01/20 03:00 107 17 125/63 (83) 96 01/01/20 02:40 111 20 45 01/01/20 02:09 18 100/49 Mechanical Ventilator 40 01/01/20 02:00 79 18 100/49 (66) 96 01/01/20 02:00 18 100/49 Mechanical Ventilator 40 01/01/20 01:00 17 103/65 Mechanical Ventilator 40 01/01/20 01:00 105 17 103/65 (78) 98 01/01/20 00:00 98.8 82 20 94/61 (72) 98 01/01/20 00:00 20 94/61 Mechanical Ventilator 40 01/01/20 00:00 40 01/01/20 00:00 Mechanical Ventilator 01/01/20 00:00 94 12/31/19 23:36 89 92/61 12/31/19 23:00 80 20 109/53 (71) 98 12/31/19 23:00 20 109/53 Mechanical Ventilator 40 12/31/19 22:40 90 20 45 12/31/19 22:00 99 17 95/70 (78) 97 12/31/19 22:00 17 95/70 Mechanical Ventilator 40 12/31/19 21:00 20 101/48 Mechanical Ventilator 40 12/31/19 21:00 87 20 101/48 (65) 98 12/31/19 20:56 91 134/80 12/31/19 20:45 112 13 134/80 (98) 95 12/31/19 20:45 20 134/80 Mechanical Ventilator 40 12/31/19 20:00 111 12/31/19 20:00 97.7 120 17 113/79 (90) 98 12/31/19 20:00 18 113/79 Mechanical Ventilator 40 12/31/19 20:00 40 12/31/19 20:00 Mechanical Ventilator 12/31/19 19:45 20 115/88 Mechanical Ventilator 40 12/31/19 19:45 114 20 115/88 (97) 90 12/31/19 19:15 19 125/78 Mechanical Ventilator 40 12/31/19 19:15 111 17 125/78 (94) 98 12/31/19 19:00 19 115/67 Mechanical Ventilator 40 12/31/19 19:00 114 20 115/67 (83) 96 12/31/19 18:58 98 20 45 12/31/19 18:35 20 117/69 Mechanical Ventilator 40 12/31/19 18:02 114 122/72 12/31/19 18:00 107 25 122/72 (89) 92 12/31/19 17:11 40 12/31/19 17:00 124 18 130/74 (92) 89 12/31/19 16:09 18 115/85 Mechanical Ventilator 40 12/31/19 16:00 81 12/31/19 16:00 99.8 77 17 95/54 (68) 99 12/31/19 16:00 Mechanical Ventilator 12/31/19 15:09 19 126/66 Mechanical Ventilator 40 12/31/19 15:02 100 23 45 12/31/19 15:00 97 19 124/93 (103) 98 12/31/19 14:09 18 106/59 Mechanical Ventilator 40 12/31/19 14:00 89 13 112/53 (72) 95 12/31/19 13:09 18 142/69 Mechanical Ventilator 40 Intake and Output 12/31/19 01/01/20 19:00 07:00 Intake Total 1092.75 ml 1576.75 ml Output Total 1270 ml 1535 ml Balance -177.25 ml 41.75 ml Free Water 60 ml IV Total 932.75 ml 1196.75 ml Tube Feeding 160 ml 320 ml Output Urine Total 1270 ml 1535 ml Laboratory Tests 12/31/19 20:20: POC Whole Blood Glucose [Pending] 01/01/20 04:00: White Blood Count 2.7L, Red Blood Count 2.58L, Hemoglobin 7.3L, Hematocrit 22.7L , Mean Corpuscular Volume 88, Mean Corpuscular Hemoglobin 28.2, Mean Corpuscular Hemoglobin Concent 32.0, Red Cell Distribution Width 18.8H, Platelet Count 84L, Mean Platelet Volume 7.9, Neutrophils (%) (Auto) , Lymphocytes (%) (Auto) , M onocytes (%) (Auto) , Eosinophils (%) (Auto) , Basophils (%) (Auto) , Differential Total Cells Counted 100, Neutrophils % (Manual) 72, Lymphocytes % (Manual) 16L, Monocytes % (Manual) 3, Eosinophils % (Manual) 0, Basophils % (Manual) 0, Band Neutrophils 9H, Platelet Estimate DecreasedL, Platelet Morphology Normal, Anisocytosis 1+, Sodium Level 146H, Potassium Level 3.7, Chloride Level 105, Carbon Dioxide Level 35H, Anion Gap 6, Blood Urea Nitrogen 80H, Creatinine 1.5H, Estimat Glomerular Filtration Rate 34.7, Glucose Level 81, Calcium Level 8.6, Total Creatine Kinase 65 01/01/20 07:39: Arterial Blood pH 7.440, Arterial Blood Partial Pressure CO2 48.8H, Arterial Blood Partial Pressure O2 94.7, Arterial Blood HCO3 32.4H, Arterial Blood Oxygen Saturation 96.8, Arterial Blood Base Excess 7.4H, Eugene Test Positive Height (Feet): 5 Height (Inches): 6.00 Weight (Pounds): 298 General Appearance: morbidly obese, other - intubated Neck: normal alignment Cardiovascular: regularly irregular Respiratory/Chest: rhonchi - bilaterally, rhonchi - left Abdomen: soft Edema: moderate edema Neurologic: sensory deficit, unresponsive Assessment/Plan Problem List: (1) Schizophrenia ICD Codes: F20.9 - Schizophrenia, unspecified SNOMED: 44608590 (2) GERD (gastroesophageal reflux disease) ICD Codes: K21.9 - Gastro-esophageal reflux disease without esophagitis SNOMED: 113452602 (3) Lymphadema (4) Smoker ICD Codes: F17.200 - Nicotine dependence, unspecified, uncomplicated SNOMED: 71598778 (5) Atrial fibrillation with rapid ventricular response ICD Codes: I48.91 - Unspecified atrial fibrillation SNOMED: 069097695086157 (6) CKD (chronic kidney disease) stage 3, GFR 30-59 ml/min ICD Codes: N18.3 - Chronic kidney disease, stage 3 (moderate) SNOMED: 606771008 (7) NATALIE (acute kidney injury) ICD Codes: N17.9 - Acute kidney failure, unspecified SNOMED: 8233898, 87853686 (8) COPD (chronic obstructive pulmonary disease) ICD Codes: J44.9 - Chronic obstructive pulmonary disease, unspecified SNOMED: 61831595 (9) UGI bleed ICD Codes: K92.2 - Gastrointestinal hemorrhage, unspecified SNOMED: 47926277 (10) Dysphagia ICD Codes: R13.10 - Dysphagia, unspecified SNOMED: 96660732, 313997430 (11) UTI (urinary tract infection) ICD Codes: N39.0 - Urinary tract infection, site not specified SNOMED: 77951941 (12) ESBL (extended spectrum beta-lactamase) producing bacteria infection ICD Codes: A49.9 - Bacterial infection, unspecified; Z16.12 - Extended spectrum beta lactamase (ESBL) resistance SNOMED: 105402828 (13) Dehydration ICD Codes: E86.0 - Dehydration SNOMED: 44864362 (14) CHF exacerbation ICD Codes: I50.9 - Heart failure, unspecified SNOMED: 288770887, 27060069181274 (15) Acute respiratory failure ICD Codes: J96.00 - Acute respiratory failure, unspecified whether with hypoxia or hypercapnia SNOMED: 87661470 (16) COVID-19 ICD Codes: U07.1 - COVID-19 SNOMED: 889069447 (17) Pneumonia ICD Codes: J18.9 - Pneumonia, unspecified organism SNOMED: 847859463 Qualifiers: (18) Hematoma of lower leg ICD Codes: S80.10XA - Contusion of unspecified lower leg, initial encounter SNOMED: 082079754 (19) CKD (chronic kidney disease) stage 3, GFR 30-59 ml/min ICD Codes: N18.3 - Chronic kidney disease, stage 3 (moderate) SNOMED: 965072123 Status: stable Assessment/Plan: resp distress, icu, now intubated, natalie on ckd,,now stable, I/O, ,+hematoma RLE stop eliquis ancd asa, lovenox now iv protonix, rx esbl and + vre uti,g+ cocci linezolid , remains high risk, d/w psych, ID, cardiology, chf and on lasix ,covid neg prior now +, grave prognosis, fungemia on micafungin likely will be unable to wean for a long time, agitated when tried to wean and needs more sedation,all lab and orders reviewed icu time 35 min Benjamin Dumont MD Jan 01, 2020 13:03
--- NOTE | 2020-01-01 13:30 | NUR ---
NURSE NOTES: Dr. Dumont is at the nurse's station. MD was updated on pt's current status; also reported Hgb result=7.3. Pt aware, however no new orders regarding lab results. MD placed order to change code status to DNR. Charge nurse aware.
--- NOTE | 2020-01-01 14:00 | NUR ---
NURSE NOTES: Order noted for thoracentesis, ordered by Dr. Carpio. MD was updated regarding change of pt's code status to DNR by Dr. Dumont. Spoke with Azra, generator technician, who contacted the nurse's station regarding the ordered thoracentesis. Per Azra, radiologist will be informed regarding the order and "there is a possibility that the procedure may be delayed due to pt's COVID positive status".
--- NOTE | 2020-01-01 14:34 | Surgery Progress Note ---
Surgery Progress Note Subjective Additional Comments ill appearing leg stable on support Objective Last 24 Hour Vital Signs Date Time Temp Pulse Resp B/P (MAP) Pulse Ox O2 Delivery O2 Flow Rate FiO2 01/01/20 14:07 19 133/76 Mechanical Ventilator 40.0 45 01/01/20 12:58 109 133/76 01/01/20 12:30 109 19 133/76 (95) 100 01/01/20 12:00 20 114/61 Mechanical Ventilator 45 01/01/20 12:00 99.0 103 17 114/61 (78) 100 01/01/20 11:28 102 20 45 01/01/20 11:00 97 17 105/59 (74) 100 01/01/20 11:00 19 105/59 Mechanical Ventilator 45 01/01/20 10:30 95 19 101/88 (92) 99 01/01/20 10:00 18 119/76 Mechanical Ventilator 45 01/01/20 10:00 98 20 106/64 (78) 100 01/01/20 09:30 94 19 83/62 (69) 98 01/01/20 09:00 99 12 91/72 (78) 100 01/01/20 09:00 25 110/70 Mechanical Ventilator 40.0 45 01/01/20 09:00 99 83/61 01/01/20 08:46 107 14 74/50 (58) 98 01/01/20 08:45 103 19 109/69 (82) 100 01/01/20 08:15 108 18 63/48 (53) 100 01/01/20 08:00 Mechanical Ventilator 01/01/20 08:00 98.0 110 18 104/60 (75) 98 01/01/20 08:00 102 01/01/20 08:00 40 01/01/20 07:17 138 25 45 01/01/20 07:00 17 101/61 Mechanical Ventilator 45 01/01/20 07:00 135 17 101/61 (74) 96 01/01/20 06:00 18 118/77 Mechanical Ventilator 45 01/01/20 06:00 102 18 118/77 (91) 94 01/01/20 05:05 91 106/66 01/01/20 05:00 92 18 106/66 (79) 94 01/01/20 05:00 18 106/66 Mechanical Ventilator 40 01/01/20 04:00 40 01/01/20 04:00 Mechanical Ventilator 01/01/20 04:00 16 116/59 Mechanical Ventilator 40 01/01/20 04:00 107 16 116/59 (78) 94 01/01/20 04:00 93 01/01/20 03:00 17 125/63 Mechanical Ventilator 40 01/01/20 03:00 107 17 125/63 (83) 96 01/01/20 02:40 111 20 45 01/01/20 02:09 18 100/49 Mechanical Ventilator 40 01/01/20 02:00 79 18 100/49 (66) 96 01/01/20 02:00 18 100/49 Mechanical Ventilator 40 01/01/20 01:00 17 103/65 Mechanical Ventilator 40 01/01/20 01:00 105 17 103/65 (78) 98 01/01/20 00:00 98.8 82 20 94/61 (72) 98 01/01/20 00:00 20 94/61 Mechanical Ventilator 40 01/01/20 00:00 40 01/01/20 00:00 Mechanical Ventilator 01/01/20 00:00 94 12/31/19 23:36 89 92/61 12/31/19 23:00 80 20 109/53 (71) 98 12/31/19 23:00 20 109/53 Mechanical Ventilator 40 12/31/19 22:40 90 20 45 12/31/19 22:00 99 17 95/70 (78) 97 12/31/19 22:00 17 95/70 Mechanical Ventilator 40 12/31/19 21:00 20 101/48 Mechanical Ventilator 40 12/31/19 21:00 87 20 101/48 (65) 98 12/31/19 20:56 91 134/80 12/31/19 20:45 112 13 134/80 (98) 95 12/31/19 20:45 20 134/80 Mechanical Ventilator 40 12/31/19 20:00 111 12/31/19 20:00 97.7 120 17 113/79 (90) 98 12/31/19 20:00 18 113/79 Mechanical Ventilator 40 12/31/19 20:00 40 12/31/19 20:00 Mechanical Ventilator 12/31/19 19:45 20 115/88 Mechanical Ventilator 40 12/31/19 19:45 114 20 115/88 (97) 90 12/31/19 19:15 19 125/78 Mechanical Ventilator 40 12/31/19 19:15 111 17 125/78 (94) 98 12/31/19 19:00 19 115/67 Mechanical Ventilator 40 12/31/19 19:00 114 20 115/67 (83) 96 12/31/19 18:58 98 20 45 12/31/19 18:35 20 117/69 Mechanical Ventilator 40 12/31/19 18:02 114 122/72 12/31/19 18:00 107 25 122/72 (89) 92 12/31/19 17:11 40 12/31/19 17:00 124 18 130/74 (92) 89 12/31/19 16:09 18 115/85 Mechanical Ventilator 40 12/31/19 16:00 81 12/31/19 16:00 99.8 77 17 95/54 (68) 99 12/31/19 16:00 Mechanical Ventilator 12/31/19 15:09 19 126/66 Mechanical Ventilator 40 12/31/19 15:02 100 23 45 12/31/19 15:00 97 19 124/93 (103) 98 I&O Intake and Output 12/31/19 01/01/20 19:00 07:00 Intake Total 1092.75 ml 1576.75 ml Output Total 1270 ml 1535 ml Balance -177.25 ml 41.75 ml Free Water 60 ml IV Total 932.75 ml 1196.75 ml Tube Feeding 160 ml 320 ml Output Urine Total 1270 ml 1535 ml Dressing: other Wound: other Cardiovascular: RSR Respiratory: decreased breath sounds Abdomen: soft, present bowel sounds Extremities: edema, cyanosis Laboratory Tests Test 12/31/19 20:20 01/01/20 04:00 01/01/20 05:09 01/01/20 07:39 POC Whole Blood Glucose Pending 93 MG/DL (74-106) White Blood Count 2.7 K/UL (4.8-10.8) L Red Blood Count 2.58 M/UL (4.20-5.40) L Hemoglobin 7.3 G/DL (12.0-16.0) L Hematocrit 22.7 % (37.0-47.0) L Mean Corpuscular Volume 88 FL (80-99) Mean Corpuscular Hemoglobin 28.2 PG (27.0-31.0) Mean Corpuscular Hemoglobin Concent 32.0 G/DL (32.0-36.0) Red Cell Distribution Width 18.8 % (11.6-14.8) H Platelet Count 84 K/UL (150-450) L Mean Platelet Volume 7.9 FL (6.5-10.1) Neutrophils (%) (Auto) % (45.0-75.0) Lymphocytes (%) (Auto) % (20.0-45.0) Monocytes (%) (Auto) % (1.0-10.0) Eosinophils (%) (Auto) % (0.0-3.0) Basophils (%) (Auto) % (0.0-2.0) Differential Total Cells Counted 100 Neutrophils % (Manual) 72 % (45-75) Lymphocytes % (Manual) 16 % (20-45) L Monocytes % (Manual) 3 % (1-10) Eosinophils % (Manual) 0 % (0-3) Basophils % (Manual) 0 % (0-2) Band Neutrophils 9 % (0-8) H Platelet Estimate Decreased L Platelet Morphology Normal Anisocytosis 1+ Sodium Level 146 MMOL/L (136-145) H Potassium Level 3.7 MMOL/L (3.5-5.1) Chloride Level 105 MMOL/L (98-107) Carbon Dioxide Level 35 MMOL/L (21-32) H Anion Gap 6 mmol/L (5-15) Blood Urea Nitrogen 80 mg/dL (7-18) H Creatinine 1.5 MG/DL (0.55-1.30) H Estimat Glomerular Filtration Rate 34.7 mL/min (>60) Glucose Level 81 MG/DL (74-106) Calcium Level 8.6 MG/DL (8.5-10.1) Total Creatine Kinase 65 U/L (26-308) Arterial Blood pH 7.440 (7.350-7.450) Arterial Blood Partial Pressure CO2 48.8 mmHg (35.0-45.0) H Arterial Blood Partial Pressure O2 94.7 mmHg (75.0-100.0) Arterial Blood HCO3 32.4 mmol/L (22.0-26.0) H Arterial Blood Oxygen Saturation 96.8 % (95-100) Arterial Blood Base Excess 7.4 (-2-2) H Eugene Test Positive Plan Problems: (1) Urinary tract infection (2) CHF exacerbation (3) History of schizophrenia (4) Atrial fibrillation with RVR (5) Schizophrenia (6) GERD (gastroesophageal reflux disease) (7) Smoker (8) Atrial fibrillation with rapid ventricular response (9) Lymphadema (10) COPD (chronic obstructive pulmonary disease) (11) CKD (chronic kidney disease) stage 3, GFR 30-59 ml/min (12) NATALIE (acute kidney injury) (13) Dehydration (14) Dysphagia (15) UTI (urinary tract infection) (16) UGI bleed (17) ESBL (extended spectrum beta-lactamase) producing bacteria infection (18) Constipation (19) Lactic acidosis (20) Tinea cruris (21) Onychomycosis (22) Emesis (23) Essential hypertension (24) Anemia (25) Cough (26) Depression (27) Depression (28) Edema (29) Rash (30) Opiate dependence (31) Opiate dependence (32) Opiate dependence (33) Opiate dependence (34) Pyelonephritis (35) Sepsis (36) UTI (urinary tract infection) (37) Nausea and vomiting (38) Abdominal pain Assessment & Plan: [age]-year-old female obese white abdominal pain deep tissue injury identified limited mobility on HD. KUB noted tube in place continue meds feeds Does not seem obstructed We will monitor lines noted. plan change resume tube feeds labs okay FINDINGS: Lower thorax: Obscuration of the left costophrenic angle suggestive of pleural effusion. Intraperitoneal space: No free air. Gastrointestinal tract: Unremarkable. No dilation. Bones/joints: Unremarkable. Tubes, lines and devices: The nasogastric tube has the tip at the mid inferior aspect of the gastric body. Other findings: Nonspecific gas pattern. Single frontal view of the abdomen demonstrates tip of the enteric tube and distal side-port projecting over the stomach. Gas is identified within the nondistended large bowel. There is a paucity of small bowel gas seen. Partially visualized left pleural effusion. No other significant interval change. (39) Chest pain (40) Chest pain (41) Nausea (42) Obesity (43) Chronic ulcer of leg (44) Chronic ulcer of leg (45) Chronic ulcer of leg (46) ACS (acute coronary syndrome) (47) Acute chest pain (48) Encounter for dressing change or suture removal (49) Left leg cellulitis (50) Acute encephalopathy (51) Encounter for wound re-check (52) Intractable nausea and vomiting (53) Infection due to ESBL-producing Escherichia coli (54) Chronic venous stasis (55) Change of dressing (56) Change of dressing (57) Change of dressing (58) Change of dressing (59) Change of dressing (60) Change of dressing (61) Change of dressing (62) Change of dressing (63) ESBL urine (64) Lymphadema (65) Lymphedema (66) Lymphedema (67) Lymphedema (68) Lymphedema (69) Lymphedema (70) Lymphedema (71) Lymphedema (72) Lymphedema (73) Open wound of foot (74) Open wound of foot (75) cellulitis (76) chronic lymphedema (77) chronic lymphedema (78) chronic lymphedema (79) hypertension uncontrolled (80) hypertension uncontrolled (81) Intertrigo (82) Sciatica (83) Cellulitis (84) Schizophrenia (85) Chronic bronchitis (86) HTN (hypertension) (87) Venous stasis ulcers (88) Medication refill (89) Chest pain, atypical (90) BMI 45.0-49.9, adult (91) Lymphedema of both lower extremities (92) hypertension uncontrolled (93) hypertension uncontrolled (94) hypertension uncontrolled (95) tenia corpus (96) Deep tissue injury Assessment & Plan: Morbidly obese pt whom presented on admission with Pressure injuries, Edemae bilat lower extremities eschar to dorsal aspects of metatarsals. Pt is very demanding of staff and can be resistive to repositio gallo. DTPI noted to L Sacrum(L)5.5cm x (W)2.5cm. Base of Pressure Injury is Maroon and indurated with surrounding non-blanchable erythema DTPI R Sacrum(L)5.5cm x (W)2.3cm. Base of Pressure Injury is maroon with purpuric center that is fluctuant. Pt complained of tenderness when minimally palpated. Bilat lower extremities are edematous . Dry eschar noted to nail matrix and tip of L 1st metatarsal, Dorsal L 2nd metatarsal, R 2nd and R 4th metatarsals. Both heels are boggy with non-Blanchable erythema. blisters forming on Right lower extremity anterior tibia. not infected cellulitis / edema on b/l le stable cont abx Tx.Plan: Apply Moisture Barrier Paste to Sacrum R and L gluteal cheeks. Cover with Optifoam drsgs. Change every 3 days and prn. Apply Betadine to dry eschar metatarsals both feet Daily. Apply Cavilon Skin Barrier to both heels. Cover each heel with Optifoam drsgs. Change every 7days and prn. Reposition at least every 2hours or as tolerated. Off-load heels with pillow. right leg hematoma stable critically ill and edema on right leg has compromised dermis over the hematoma. will likely need debridement once improved (97) COVID-19 Assessment & Plan: ++ on vent weaning abx as per ID (98) Respiratory failure (99) Pneumonia Juan Manuel Buckner Jan 01, 2020 14:33
--- NOTE | 2020-01-01 14:42 | NUR ---
CASE MANAGEMENT: REVIEW 01/01/20 SI: COVID-19 . ACUTE HYPOXEMIC . HYPERCAPNIC . RESP FAILURE . REQUIRING INTUBATION 99.0 103 20 114/61 100% MECH VENT FIO2 45 WBC 2.7 H/H 7.3/22.7 PLT 84 NA+146 CO2 35 BUN/CREAT 80/1.5 IS: LASIX IV Q6HR FENTANYL IV Q24 MEROPENEM IV Q12HR POLYMYXIN IV Q12HR ZYVOX IV Q12HR MICAFUNGIN IV Q24HR DECADRON IV QD NGT FEEDING ICU STATUS DCP: PATIENT REPORTS HOMELESS
--- NOTE | 2020-01-01 17:11 | NUR ---
NURSE NOTES: Pt is maintained on Fentanyl drip at 300mcg/hr, however RASS score remains +1 restless, despite max dose of Fentanyl infusion. Pt was also administered Versed IVP per PRN order for anxiety.
--- NOTE | 2020-01-01 18:00 | NUR ---
NURSE NOTES: Pt was cleaned, gown/bed linens were changed. Oral care was done. Pt was repositioned for comfort. Cooling blanket is currently on top of pt, with body temperature being monitored via rectal thermometer. Bilateral soft wrist restraints remain in place to prevent self-extubation, as pt is impulsive, attempting to reach for ET tube. Fentanyl drip is maintained at max dose 300mcg/hr. No new orders received from Dr. Ballesteros for additional psych or sedative meds. Dr. Dumont has also been notified regarding pt's continued restlessness despite Fentanyl drip max dose and PRN meds Versed IVP and Thorazine IM.
--- NOTE | 2020-01-01 19:30 | NUR ---
NURSE HAND-OFF REPORT: Latest Vital Signs: Temperature 98.0 , Pulse 97 , B/P 114 /68 , Respiratory Rate 20 , O2 SAT 100 , Mechanical Ventilator, O2 Flow Rate . Vital Sign Comment: ETT 7.5 @24cm lipline with vent settings AC20, VT600, Peep 5.0, FIO2 45% currently at 100% O2Sat. AFib on cardiac technician, HR fluctuating from 70-104 bmp. NGT via left nare with feeding Glucerna 1.5, infusing at goal rate of 45ml/hour. Lockett catheter is present, draining, clear/dark yellow urine. EKG Rhythm: Atrial Fibrillation Rhythm change?: Natalie UNDERWOOD Notified?: Elizabeth Meek MD Response: Report given to Cathie COHEN. Endorsed plan of care.
--- NOTE | 2020-01-01 19:31 | NUR ---
NURSE NOTES: Patient received from NOEL Glavan. Patient awake and calm but nonverbal with 7.5 ETT at 24cm lipline on ventilator AC 20 TV 600 FiO2 40% PEEP 5. BP 114/68 HR89 Afib on monitor. Left Upper arm PICC running Fentanyl 300mcg/hr, with bruising noted. left hand #22 tko. left nare NGT running Glucerna 1.5 @45ml/hr. Lockett catheter draining yellow urine. patient covered with cooling blanket. sacral redness, right knee hematoma with dry blisters, left knee ecchymosis, moisture related redness on breast and abdominal skin folds. patient repositioned and oral care provided.
[2020-01-01] MEDS: Miralax 17gm pkt NG SCH (20:38)
[2020-01-01] MEDS: Pantoprazole Inj IVP SCH (20:39)
[2020-01-01] MEDS: Dyna-Hex 2% Top Sol 2oz TOPIC SCH (20:40)
--- NOTE | 2020-01-01 22:00 | NUR ---
NURSE NOTES: Patient sedated to RASS -2 with 7.5 ETT at 24cm lipline on ventilator AC 20 TV 600 FiO2 40% PEEP 5. BP 131/65 HR80 Afib on monitor. Left Upper arm PICC running Fentanyl 300mcg/hr. patient more calm after prn thorazine and versed administered. left nare NGT running Glucerna 1.5 @45ml/hr. Lockett catheter draining yellow urine. patient covered with cooling blanket. patient repositioned and oral care provided.
--- NOTE | 2020-01-01 22:46 | Psych Consult Progress Note ---
Psychiatry Progress Note Psychiatry Progress Note Subjective cont to be agitated and on bilat restraints. the pt is intubated and still gets agitated Medications Current Medications Medications (Trade) Dose Ordered Sig/Shiraz Route PRN Reason Start Time Stop Time Status Last Admin Dose Admin Acetaminophen (Tylenol) 650 mg Q4H PRN NG Temp >100.5 12/22/19 16:00 01/11/20 22:14 12/23/19 13:53 Acetaminophen (Tylenol) 650 mg Q4H PRN NG Mild Pain (Pain Scale 1-3) 12/22/19 16:00 01/11/20 22:14 12/28/19 05:27 Albuterol Sulfate (Proventil MDI) 2 puff Q4H PRN INH Shortness of Breath 12/24/19 10:30 03/23/20 10:29 Bacitracin (Bacitracin 15gm tube) 1 applic BID TOPIC 12/22/19 18:00 03/12/20 08:59 01/01/20 17:08 Chlorhexidine Gluconate (Jessie-Hex 2%) 1 applic DAILY@1999 TOPIC 12/24/19 20:00 03/23/20 19:59 01/01/20 20:40 Chlorpromazine (Thorazine) 50 mg Q6H PRN IM agitation 12/30/19 02:30 01/29/20 02:29 01/01/20 21:31 Clotrimazole (Lotrimin) 1 applic TWICE A DAY TOPIC 12/22/19 18:00 03/12/20 08:59 01/01/20 17:08 Dexamethasone Sodium Phosphate (Decadron 10mg/ ml Inj) 6 mg DAILY IV 12/24/19 09:00 01/03/20 08:59 01/01/20 08:37 Dextrose (Dextrose 50%) 25 ml Q30M PRN IV Hypoglycemia 12/23/19 10:45 03/22/20 10:44 Dextrose (Dextrose 50%) 50 ml Q30M PRN IV Hypoglycemia 12/23/19 10:45 03/22/20 10:44 Diltiazem HCl (Cardizem Tab) 90 mg Q6HR NG 12/22/19 18:00 01/13/20 11:59 01/01/20 17:07 Docusate Sodium (Colace) 100 mg BID NG 12/25/19 09:00 01/24/20 08:59 01/01/20 17:08 Enoxaparin Sodium (Lovenox) 60 mg DAILY SUBQ 12/23/19 09:00 03/22/20 08:59 12/29/19 08:50 Famotidine (Pepcid I.v.) 20 mg Q12HR IVP 12/25/19 09:00 01/24/20 08:59 01/01/20 20:40 Fentanyl Citrate 250 ml @ 0 mls/hr Q24H IV 12/30/19 06:15 01/02/20 06:14 01/01/20 22:11 Furosemide (Lasix) 60 mg Q6HR IV 12/31/19 12:00 01/30/20 11:59 01/01/20 17:07 Heparin Sodium/ Sodium Chloride (Heparin 1000 units/500ml Premix) 1,000 unit ONCE PRN IV PICC LINE 12/31/19 07:15 01/02/20 07:14 Insulin Aspart (NovoLOG) BEFORE MEALS AND HS SUBQ 12/23/19 11:30 03/22/20 11:29 12/31/19 20:31 Lidocaine HCl (Xylocaine 1% 30ml) 30 ml ONCE PRN INJ PICC LINE 12/31/19 07:15 01/02/20 07:14 Linezolid 300 ml @ 300 mls/hr Q12HR IVPB 12/31/19 21:00 01/04/20 20:59 01/01/20 20:39 Magnesium Hydroxide (Mom) 30 ml HSPRN PRN NG Constipation 12/22/19 15:15 01/21/20 15:14 Meropenem 500 mg/ Sodium Chloride 55 ml @ 110 mls/hr Q12H IVPB 12/30/19 04:00 01/04/20 03:59 01/01/20 17:07 Metoprolol Tartrate (Lopressor) 50 mg Q12HR NG 12/22/19 21:00 03/18/20 20:59 01/01/20 20:40 Micafungin Sodium 100 mg/Sodium Chloride 110 ml @ 110 mls/hr Q24H IVPB 12/27/19 09:00 01/05/20 08:59 01/01/20 08:38 Midazolam HCl (Versed 2mg/2ml vial) 2 mg Q2H PRN IVP For Anxiety 12/31/19 14:30 01/07/20 14:29 01/01/20 20:39 Nitroglycerin (Ntg) 0.4 mg Q5M PRN SL Prn Chest Pain 12/22/19 15:00 01/11/20 22:14 Ondansetron HCl (Zofran) 4 mg Q6H PRN IVP Nausea & Vomiting 12/22/19 15:15 01/11/20 15:14 Pantoprazole (Protonix) 40 mg EVERY 12 HOURS IVP 01/01/20 21:00 01/31/20 20:59 01/01/20 20:39 Polyethylene Glycol (Miralax) 17 gm BEDTIME NG 12/22/19 21:00 01/18/20 20:59 01/01/20 20:38 Polymyxin B Sulfate 126685 units/Dextrose 550 ml @ 550 mls/hr EVERY 12 HOURS IV 12/29/19 21:00 01/05/20 20:59 01/01/20 20:39 Quetiapine Fumarate (SEROqueL) 50 mg EVERY 8 HOURS ORAL 12/28/19 22:00 02/11/20 17:59 01/01/20 21:31 Neurological/Psychiatric: Reports: anxiety, depressed, emotional problems Allergies: Coded Allergies: ERYTHROMYCIN BASE (Verified Allergy, Severe, 12/12/19) HALOPERIDOL (Verified Allergy, Unknown, 12/12/19) VANCOMYCIN (Unverified Adverse Reaction, Intermediate, Shortness of Breath, 12/12/19) Objective Data Height (Feet): 5 Height (Inches): 6.00 Weight (Pounds): 298 General Appearance: lethargic, confused, agitated, morbidly obese, other - intubated Additional Comments: confused. Mood is anxious. Affect is flat. Assessment/Plan [place] I: thorazin IM seroquel 50 q 8 hr Status: stable Status Narrative thorazin IM seroquel 50 q 8 hr Assessment/Plan: thorazin IM seroquel 50 q 8 hr midazolam bilat soft restraints Harris Ballesteros MD Jan 01, 2020 22:46
[2020-01-02] VITALS (29 sets, daily range): BP systolic 92–176; BP diastolic 44–93
--- NOTE | 2020-01-02 | NUR ---
NURSE NOTES: Patient alert but anxious with 7.5 ETT at 24cm lipline on ventilator AC 20 TV 600 FiO2 40% PEEP 5. BP 126/79 HR77 Afib on monitor, 99.2F rectal temp. Left Upper arm PICC running Fentanyl 300mcg/hr. patient more calm after prn Thorazine and versed administered. left nare NGT running Glucerna 1.5 @45ml/hr. Lockett catheter draining yellow urine. patient covered with cooling blanket. patient repositioned and oral care provided.
--- NOTE | 2020-01-02 00:33 | Cardiology Progress Note ---
Subjective DATE OF SERVICE: Jan 01, 2020 Doing poorly - remains in ICU in critical condition with guarded prognosis. Reintubated yesterday due to kinked tube. PICC line replaced today as well due to dislodgement. BP range has stabilized Remains COVID19 positive. Monitor: AFIb Persisting respiratory acidosis req'd intubation and mech ventilation - remains far from weaning. Had coffee ground material in NGTube and hematoma on right leg; anti-coagulation discont'd Venous Duplex: negative for DVT Renal fxn and free water deficit correcting CXR (12/30/19) Persisting right infiltrate and moderate effusion Objective Last 24 Hour Vital Signs Date Time Temp Pulse Resp B/P (MAP) Pulse Ox O2 Delivery O2 Flow Rate FiO2 01/02/20 00:00 40 01/01/20 23:16 107 136/86 01/01/20 23:00 88 17 113/72 (86) 100 01/01/20 22:45 82 20 40 01/01/20 22:11 16 131/65 Mechanical Ventilator 40 01/01/20 22:00 16 109/62 Mechanical Ventilator 40 01/01/20 22:00 80 14 131/65 (87) 100 01/01/20 21:00 103 15 143/84 (103) 100 01/01/20 21:00 15 138/77 Mechanical Ventilator 40 01/01/20 20:40 102 121/72 01/01/20 20:30 19 118/64 Mechanical Ventilator 40 01/01/20 20:00 Mechanical Ventilator 01/01/20 20:00 40 01/01/20 20:00 99.6 98 11 130/70 (90) 100 01/01/20 20:00 16 123/86 Mechanical Ventilator 40 01/01/20 20:00 81 01/01/20 19:30 97 20 45 01/01/20 19:00 18 114/68 Mechanical Ventilator 45 01/01/20 19:00 89 20 114/68 (83) 100 01/01/20 18:00 96 22 109/53 (71) 100 01/01/20 18:00 18 121/68 Mechanical Ventilator 45 01/01/20 17:30 118 14 114/96 (102) 94 01/01/20 17:07 101 114/96 01/01/20 17:00 118 12 129/78 (95) 92 01/01/20 17:00 18 114/96 Mechanical Ventilator 45 01/01/20 16:30 104 1 132/90 (104) 01/01/20 16:00 100 01/01/20 16:00 98.0 129 19 145/82 (103) 92 01/01/20 16:00 40 01/01/20 16:00 20 132/70 Mechanical Ventilator 45 01/01/20 16:00 Mechanical Ventilator 01/01/20 15:29 108 20 45 01/01/20 15:00 108 13 106/77 (87) 99 01/01/20 15:00 18 106/77 Mechanical Ventilator 45 01/01/20 14:30 95 10 127/71 (89) 95 01/01/20 14:07 19 133/76 Mechanical Ventilator 40.0 45 01/01/20 14:00 94 15 118/65 (82) 01/01/20 13:30 100 20 119/64 (82) 01/01/20 13:00 115 18 146/82 (103) 100 01/01/20 12:58 109 133/76 01/01/20 12:30 109 19 133/76 (95) 100 01/01/20 12:00 40 01/01/20 12:00 Mechanical Ventilator 01/01/20 12:00 20 114/61 Mechanical Ventilator 45 01/01/20 12:00 99.0 103 17 114/61 (78) 100 01/01/20 12:00 108 01/01/20 11:28 102 20 45 01/01/20 11:00 97 17 105/59 (74) 100 01/01/20 11:00 19 105/59 Mechanical Ventilator 45 01/01/20 10:30 95 19 101/88 (92) 99 01/01/20 10:00 18 119/76 Mechanical Ventilator 45 01/01/20 10:00 98 20 106/64 (78) 100 01/01/20 09:30 94 19 83/62 (69) 98 01/01/20 09:00 99 12 91/72 (78) 100 01/01/20 09:00 25 110/70 Mechanical Ventilator 40.0 45 01/01/20 09:00 99 83/61 01/01/20 08:46 107 14 74/50 (58) 98 01/01/20 08:45 103 19 109/69 (82) 100 01/01/20 08:15 108 18 63/48 (53) 100 01/01/20 08:00 Mechanical Ventilator 01/01/20 08:00 98.0 110 18 104/60 (75) 98 01/01/20 08:00 102 01/01/20 08:00 40 01/01/20 07:17 138 25 45 01/01/20 07:00 17 101/61 Mechanical Ventilator 45 01/01/20 07:00 135 17 101/61 (74) 96 01/01/20 06:00 18 118/77 Mechanical Ventilator 45 01/01/20 06:00 102 18 118/77 (91) 94 01/01/20 05:05 91 106/66 01/01/20 05:00 92 18 106/66 (79) 94 01/01/20 05:00 18 106/66 Mechanical Ventilator 40 01/01/20 04:00 40 01/01/20 04:00 Mechanical Ventilator 01/01/20 04:00 16 116/59 Mechanical Ventilator 40 01/01/20 04:00 107 16 116/59 (78) 94 01/01/20 04:00 93 01/01/20 03:00 17 125/63 Mechanical Ventilator 40 01/01/20 03:00 107 17 125/63 (83) 96 01/01/20 02:40 111 20 45 01/01/20 02:09 18 100/49 Mechanical Ventilator 40 01/01/20 02:00 79 18 100/49 (66) 96 01/01/20 02:00 18 100/49 Mechanical Ventilator 40 01/01/20 01:00 17 103/65 Mechanical Ventilator 40 01/01/20 01:00 105 17 103/65 (78) 98 ROS: unchanged from 12/12/19 HEENT: Orally intubated, Mechanically Ventilated, Thin secretions ET Tube, other - NGtube RHYTHM: NSR, ST LUNGS: diminished breath sounds, right-sided rhonchi CARDIAC: normal S1 and S2, irregularly irregular ABDOMEN: other - obese EXTREMITIES: moderate edema - mostly non pitting, other - hematoma right leg Laboratory Tests Test 01/01/20 04:00 01/01/20 05:09 01/01/20 07:39 White Blood Count 2.7 K/UL (4.8-10.8) L Red Blood Count 2.58 M/UL (4.20-5.40) L Hemoglobin 7.3 G/DL (12.0-16.0) L Hematocrit 22.7 % (37.0-47.0) L Mean Corpuscular Volume 88 FL (80-99) Mean Corpuscular Hemoglobin 28.2 PG (27.0-31.0) Mean Corpuscular Hemoglobin Concent 32.0 G/DL (32.0-36.0) Red Cell Distribution Width 18.8 % (11.6-14.8) H Platelet Count 84 K/UL (150-450) L Mean Platelet Volume 7.9 FL (6.5-10.1) Neutrophils (%) (Auto) % (45.0-75.0) Lymphocytes (%) (Auto) % (20.0-45.0) Monocytes (%) (Auto) % (1.0-10.0) Eosinophils (%) (Auto) % (0.0-3.0) Basophils (%) (Auto) % (0.0-2.0) Differential Total Cells Counted 100 Neutrophils % (Manual) 72 % (45-75) Lymphocytes % (Manual) 16 % (20-45) L Monocytes % (Manual) 3 % (1-10) Eosinophils % (Manual) 0 % (0-3) Basophils % (Manual) 0 % (0-2) Band Neutrophils 9 % (0-8) H Platelet Estimate Decreased L Platelet Morphology Normal Anisocytosis 1+ Sodium Level 146 MMOL/L (136-145) H Potassium Level 3.7 MMOL/L (3.5-5.1) Chloride Level 105 MMOL/L (98-107) Carbon Dioxide Level 35 MMOL/L (21-32) H Anion Gap 6 mmol/L (5-15) Blood Urea Nitrogen 80 mg/dL (7-18) H Creatinine 1.5 MG/DL (0.55-1.30) H Estimat Glomerular Filtration Rate 34.7 mL/min (>60) Glucose Level 81 MG/DL (74-106) Calcium Level 8.6 MG/DL (8.5-10.1) Total Creatine Kinase 65 U/L (26-308) POC Whole Blood Glucose 93 MG/DL (74-106) Arterial Blood pH 7.440 (7.350-7.450) Arterial Blood Partial Pressure CO2 48.8 mmHg (35.0-45.0) H Arterial Blood Partial Pressure O2 94.7 mmHg (75.0-100.0) Arterial Blood HCO3 32.4 mmol/L (22.0-26.0) H Arterial Blood Oxygen Saturation 96.8 % (95-100) Arterial Blood Base Excess 7.4 (-2-2) H Eugene Test Positive Assessment/Plan Assessment/Plan CRITICAL AND GUARDED Acute respiratory failure Acute on chronic respiratory acidosis AFiB with labile heart rates CHF, ac/chr diast - compensated BLE edema Sepsis with shock obesity COPD with bronchospasm Acute renal failure - worsening Pleural effusion GI bleeding Anemia - multifactorial Acute diastolic CHF Covid 19 PNA Hypokalemia Dehydration/hypernatremia Vent support Monitor acid/base parameters. Transfuse PRBC's for further decrease Hb. Antimicrobials Titrate rate-control meds - hold digitalis for elevated levels. Maintain diltiazem and metoprolol. DC apixaban - hold anticoagulation due to GI bleeding; resume with GI clearance. Continued satellite project site monitor Diuresis based on clinical parameters; trend BNP May need trach Potassium and free water suppl as needed Possible thorocentesis per pulmonary Agree with consideration for DNR Jerome Meek MD Jan 02, 2020 00:33
--- NOTE | 2020-01-02 02:00 | NUR ---
NURSE NOTES: Patient awake and anxious with 7.5 ETT at 24cm lipline on ventilator AC 20 TV 600 FiO2 40% PEEP 5. BP 117/61 HR92 Afib on monitor. Left Upper arm PICC running Fentanyl 300mcg/hr. prn versed administered. left nare NGT running Glucerna 1.5 @45ml/hr. Lockett catheter draining yellow urine. patient covered with cooling blanket. patient repositioned and oral care provided.
[2020-01-02] MEDS: Midazolam 2mg/2ml Inj IVP PRN ×7 (02:14→23:29)
[2020-01-02] MEDS: Meropenem 500 MG in NS 55 ML IVPB SCH (03:04)
[2020-01-02] MEDS: Milk of Magnesia 30ml Ud NG PRN ×2 (03:40→22:20)
--- NOTE | 2020-01-02 04:00 | NUR ---
NURSE NOTES: Patient alert and calm with 7.5 ETT at 24cm lipline on ventilator AC 20 TV 600 FiO2 40% PEEP 5. BP 114/73 HR97 Afib on monitor, 97.7F rectal temp. Left Upper arm PICC running Fentanyl 300mcg/hr. left nare NGT running Glucerna 1.5 @45ml/hr. Lockett catheter draining yellow urine. patient on cooling blanket. patient given CHG bath, repositioned and oral care provided.
[2020-01-02] MEDS: dilTIAZem HCl 90mg tab NG SCH ×4 (05:39→23:25)
[2020-01-02] MEDS: fentaNYL 2500mcg/NS 250ml 250 ML IV SCH ×3 (05:40→18:19)
--- NOTE | 2020-01-02 06:00 | NUR ---
NURSE NOTES: Patient awake and anxious with 7.5 ETT at 24cm lipline on ventilator AC 20 TV 600 FiO2 40% PEEP 5. BP 105/64 HR90 Afib on monitor. Left Upper arm PICC running Fentanyl 300mcg/hr. left nare NGT running Glucerna 1.5 @10ml/hr, due to HOB <30. work order placed for bed. Lockett catheter draining yellow urine. patient on cooling blanket. left hand #22 tko. sacral redness, right knee hematoma with dry blisters, left knee ecchymosis, moisture related redness on breast and abdominal skin folds. patient repositioned and oral care provided.
[2020-01-02 06:01] LABS: HEMATOCRIT 21.6 % (37.0-47.0); MEAN CORPUSCULAR VOLUME 88 FL (80-99); PLATELET COUNT 82 K/UL (150-450); RED BLOOD COUNT 2.46 M/UL (4.20-5.40); RED CELL DISTRIBUTION WIDTH 17.9 % (11.6-14.8); WHITE BLOOD COUNT 2.6 K/UL (4.8-10.8)
[2020-01-02 06:19] LABS: HEMOGLOBIN 6.9 G/DL (12.0-16.0)
[2020-01-02 06:24] LABS: CALCIUM 8.6 MG/DL (8.5-10.1); CREATININE 1.4 MG/DL (0.55-1.30); POTASSIUM 3.2 MMOL/L (3.5-5.1)
--- NOTE | 2020-01-02 06:26 | NUR ---
NURSE NOTES: Paged Dr. Dumont to report abnormal lab values. message left. awaiting call back.
[2020-01-02] MEDS: NovoLOG Insulin Flexpen SUBQ SCH ×4 (06:30→21:00)
--- NOTE | 2020-01-02 07:15 | NUR ---
NURSE NOTES: Paged Dr. Stewart to renew Fentanyl order. message left. awaiting call back.
--- NOTE | 2020-01-02 07:30 | NUR ---
NURSE HAND-OFF REPORT: Latest Vital Signs: Temperature 97.7 , Pulse 73 , B/P 92 /56 , Respiratory Rate 18 , O2 SAT 99 , Mechanical Ventilator, O2 Flow Rate . Vital Sign Comment: WNL EKG Rhythm: Atrial Fibrillation Rhythm change?: N Notified?: Elizabeth Meek MD Response: Latest Abreu Fall Score: 75 Fall Risk: High Risk Safety Measures: Call light Within Reach, Bed Alarm Zone 2, Side Rails Side Rails x3, Bed position Low and Locked. Fall Precautions: Yellow Socks Report given to NOEL Galvan.
--- NOTE | 2020-01-02 07:35 | NUR ---
NURSE NOTES: Fentanyl bag and tubing wasted, with NOEL Alaniz, witnessed 233ml wasted.
--- NOTE | 2020-01-02 08:00 | NUR ---
NURSE NOTES: Pt was assessed after receiving change of shift report from Cathie COHEN. Pt is currently on sedation vacation for weaning trials per MD order. Orally intubated, ETT 7.5 @24cm lipline with vent settings AC20, VT600, Peep 5.0, FIO2 45% currently at 100% O2Sat. AFib on air sampling and monitoring, HR 102 bmp. NGT via left nare with feeding Glucerna 1.5, currently on hold for weaning trial. Lockett catheter is present, draining, clear/dark yellow urine. Skin alterations are noted. Pt is on pressure release mattress and cooling blanket, with body temp being monitored via rectal tube. Bed is locked, HOB at 30 degrees, three side rails up, and bed in lowest position. Bilateral soft wrist restraints are in place to prevent self-extubation, as pt is impulsive and observed attempting to reach for ET tube. Skin and vascular integrity at restraint site remains within normal limits. HOB at 30degrees, bed locked/in lowest position, three side rails up. Will continue with plan of care.
--- NOTE | 2020-01-02 08:05 | NUR ---
NURSE NOTES: Spoke with Dr. Carpio over the phone and received order to renew Rx to continue Fentanyl drip. Rx was processed, spoke with pharmacist/Twyla, however currently awaiting for pt to be weaned by RT, while on sedation vacation. New bag will be removed from pyxis after weaning attempt. Also spoke with Dr. Carpio regarding possible additional sedation, since pt unable to reach RASS score of -2 light sedation while on max dose of Fentanyl drip and utilization of PRN Versed IVP and Thorazine IM meds. Per Dr. Carpio, no additional drips at this time, however ordered to change frequency of Versed IVP to Q1 hour. Order processed.
[2020-01-02] MEDS: Enoxaparin 60mg Inj SUBQ SCH (09:00)
[2020-01-02] MEDS: Metoprolol Tartrate 50mg tab NG SCH ×2 (09:00→20:41)
--- NOTE | 2020-01-02 09:38 | NUR ---
RD ASSESSMENT & RECOMMENDATIONS SEE CARE ACTIVITY FOR COMPLETE ASSESSMENT DAILY ESTIMATED NEEDS: Needs based on Obesity, Cardiac, DM, NATALIE, Critical Care/ 80.5kg abw 22-25kg/IBW (59kg) kcals/kg 8081-4983 total kcals 1-2 g protein/kg 80-161 g total protein 20-25 mL/kg 8512-5821 total fluid mLs NUTRITION DIAGNOSIS: 1) Class III Obesity R/T lifestyle factors? excessive energy intake as evidenced by pt w/ BMI >50, @ 245% IBW. 2) Altered nutrition related lab values R/T diabetes, altered lipid metabolism, cardiac hx, NATALIE as evidenced by A1C of 7.1, elev triglyceride 239, elev BNP 4671, elev creat (1.7->4.3 -> 1.8, elev BUN (92 -> 65), elev K (5.4, 5.2 -> wnl->5.3-> wnl), 3) Swallowing difficulty R/T decreased cognitive fxn, respiratory status as evidenced by s/p NGT insertion (12/17), s/p worsening respiratoy status, Covid-19 postive, orally intubated (12/22), NPO. CURRENT TF:Glucerna 1.5 @45ml/hr ENTERAL NUTRITION RECOMMENDATIONS: Glucerna 1.5 @ 40ml/hr x 24 hrs to provide 960ml, 1440kcal, 79g prot, 729ml free water * Lower TF to goal of 40ml/hr, will meet 100% est needs. * HOB over 30 degrees/ water flush per MD ADDITIONAL RECOMMENDATIONS: 1) Calibrated bedscale wt: fluctuating daily wts 2) Monitor renal fxn and lytes, need to continue Nepro -> creat trend down, K wnl, rec TF change to Glucerna 1.5 (See above) 3) Wound healing: add Nephrovite x 1, Vit C 250mg QD, Armand BID via NGT 4) Monitor BGs closely w/ Decadron: NISS now added 5) Feed at goal w/ hemodynamic stability .
[2020-01-02] MEDS: dexAMETHasone 10mg/ml Inj IV SCH (09:41)
[2020-01-02] MEDS: Pantoprazole Inj IVP SCH ×2 (09:41→20:40)
[2020-01-02] MEDS: Polymyxin B Sulfate 500,000 UNITS in D5W 500ml 550 ML IV SCH ×2 (09:41→20:40)
[2020-01-02] MEDS: Micafungin 100 MG in NS 110 ML IVPB SCH (09:42)
[2020-01-02] MEDS: Docusate 100mg/10ml Liq NG SCH ×2 (09:43→17:23)
[2020-01-02] MEDS: Bacitracin Oint 15gm Tube TOPIC SCH ×2 (09:43→17:23)
--- NOTE | 2020-01-02 09:45 | NUR ---
NURSE NOTES: New Fentanyl bag was removed from the pyxis, scanned and witnessed by second RN, drip rate is resumed to continue same rate of 300mcg/hr post sedation vacation. Weaning was attempted, however pt was unable to tolerate, due to apnea. Pt is now very restless, Versed and Thorazine were administered per PRN orders for anxiety and agitation. New IV tubing is used with the new Fentanyl bag, tubing dated, and to be changed tomorrow AM post 24 hours per protocol. Current RASS score is +1 restless.
--- NOTE | 2020-01-02 09:50 | Pulmonolgy Critical Care Note ---
AndrésLuz ENGINEER SYSTEM ADMINISTRATOR 01/02/20 0950: Critical Care - Asmt/Plan Assessment/Plan: ASSESSMENT acute hypoxemic hypercapnic resp failure, requiring intubation 12/22 failure to wean COVID 19 PNA sepsis fungemia UTI with E coli ESBL UTI VRE possible aspiration PNA Moderate R pleural effusion COPD Bronchospasm Atrial fibrillation with rapid ventricular response Congestive heart failure Acute renal failure on CKD Severe anemia Probable GI bleeding Thrombocytopenia Status post ground fall Tobacco dependency Morbid obesity probably GARY Homeless R knee edema and hematoma, likely sprain /strain post fall PLAN OF CARE ICU intubated 12/22 last ABG stable, keep settings as is and titrate Fio2 to keep sat above 90% MDI Albuterol in line with vent fup with CXR and ABG thoracentesis pending started on weaning trials with high PS settings as ordered, goal MV 10 not tolerated steroids IV ( started 12/23) continue for total of 10 days till 01/02 Remdesivir (started 12/24 ), dc 12/30 initial diagnoses with COVID 19 at [facility] 11/29, was not hypoxic and not intubated, was not treated with Remdesivivr , only received empiric abx for PNA sedation with Fentanyl gtt and versed prn - DVT prophylaxis with Lovenox prior Venous Duplex BLE -NGT COVID 19 by PCR 12/22 positive isolation IL 6 52 , initial CRP 15.6, ferritin 769, fup with inflammatory markers CRP 12/29 - down to 11.8 ; ferritin down to 503 on diuresis with Lasix , monitor volumes closely creat remains stable rate control- per cardio recs: monitor volumes pro BNP trending down ECHO with pEF no evidence of WMA GI prophylaxis with PPI s/p Venofer x 2 s/p blood transfusion 12/25 monitor HH with goal to keep Hgb >7 transfuse 1 u PRBC 01/01 today GI procedure when stable monitor PLT counts renal US no hydro, BL nonobstructive stones s/p IV hydration, now resumed again per nephro monitor renal parameters, lytes , e/lyte management as per nephro recs creat stable UCX 12/11 + E coli ESBL, BCX 12/16 1/2 + yeast, fup with yeast ID, ? source BCX 12/17 NGTD BCX 12/22 and 12/24 NGTD UCX 12/16 VRE SCX 12/19 MRSA, ACB MDR now on meropenem , micafungin , Polymyxin , Zyvox as per ID recs; cooling blanket prn fevers prior X ray R knee given fall 12/15 , large hematoma, swelling-no fx or dislocation ice R knee and elevate CT head no acute IC pathology fall precautions prior declined Nicotine patch discussion on weight loss if receptive - not at this time; anxious and wants to go home pain management anxiolytic prn SW consult for placement evaluated by bioethics -> DNR/DNI status appropriate given current critical condition , grave prognosis and multiple comorbidities, would recommend DNR/DNI status as well now DNR/DNI status case discussed and evaluated by supervising physician ivy mccarty for a consult! Critical Care - Objective Last 24 Hour Vital Signs Date Time Temp Pulse Resp B/P (MAP) Pulse Ox O2 Delivery O2 Flow Rate FiO2 01/02/20 07:00 73 18 92/56 (68) 99 01/02/20 06:55 102 21 40 01/02/20 06:14 16 123/84 Mechanical Ventilator 40 01/02/20 06:00 16 105/64 Mechanical Ventilator 40 01/02/20 06:00 90 16 105/64 (78) 100 01/02/20 05:40 16 109/61 Mechanical Ventilator 40 01/02/20 05:39 99 109/61 01/02/20 05:00 16 116/66 Mechanical Ventilator 40 01/02/20 05:00 77 16 116/66 (83) 100 01/02/20 04:30 16 97/57 Mechanical Ventilator 40 01/02/20 04:00 Mechanical Ventilator 01/02/20 04:00 99 01/02/20 04:00 15 99/64 Mechanical Ventilator 40 01/02/20 04:00 40 01/02/20 04:00 97.7 97 16 114/73 (87) 95 01/02/20 03:01 89 20 40 01/02/20 03:00 82 18 120/55 (76) 100 01/02/20 03:00 16 103/82 Mechanical Ventilator 40 01/02/20 02:00 92 10 117/61 (79) 99 01/02/20 02:00 18 117/61 Mechanical Ventilator 40 01/02/20 01:00 17 117/88 Mechanical Ventilator 40 9/23/20 01:00 72 15 93/44 (60) 99 01/02/20 00:00 80 01/02/20 00:00 40 01/02/20 00:00 20 114/67 Mechanical Ventilator 40 01/02/20 00:00 Mechanical Ventilator 01/02/20 00:00 99.2 77 20 126/79 (95) 100 01/01/20 23:16 107 136/86 01/01/20 23:00 88 17 113/72 (86) 100 01/01/20 23:00 20 136/86 Mechanical Ventilator 40 01/01/20 22:45 82 20 40 01/01/20 22:11 16 131/65 Mechanical Ventilator 40 01/01/20 22:00 16 109/62 Mechanical Ventilator 40 01/01/20 22:00 80 14 131/65 (87) 100 01/01/20 21:30 16 147/96 Mechanical Ventilator 40 01/01/20 21:00 103 15 143/84 (103) 100 01/01/20 21:00 15 138/77 Mechanical Ventilator 40 01/01/20 20:40 102 121/72 01/01/20 20:30 19 118/64 Mechanical Ventilator 40 01/01/20 20:00 Mechanical Ventilator 01/01/20 20:00 40 01/01/20 20:00 99.6 98 11 130/70 (90) 100 01/01/20 20:00 16 123/86 Mechanical Ventilator 40 01/01/20 20:00 81 01/01/20 19:30 97 20 45 01/01/20 19:00 18 114/68 Mechanical Ventilator 45 01/01/20 19:00 89 20 114/68 (83) 100 01/01/20 18:00 96 22 109/53 (71) 100 01/01/20 18:00 18 121/68 Mechanical Ventilator 45 01/01/20 17:30 118 14 114/96 (102) 94 01/01/20 17:07 101 114/96 01/01/20 17:00 118 12 129/78 (95) 92 01/01/20 17:00 18 114/96 Mechanical Ventilator 45 01/01/20 16:30 104 1 132/90 (104) 01/01/20 16:00 100 01/01/20 16:00 98.0 129 19 145/82 (103) 92 9/22/20 16:00 40 01/01/20 16:00 20 132/70 Mechanical Ventilator 45 01/01/20 16:00 Mechanical Ventilator 01/01/20 15:29 108 20 45 01/01/20 15:00 108 13 106/77 (87) 99 01/01/20 15:00 18 106/77 Mechanical Ventilator 45 01/01/20 14:30 95 10 127/71 (89) 95 01/01/20 14:07 19 133/76 Mechanical Ventilator 40.0 45 01/01/20 14:00 94 15 118/65 (82) 01/01/20 13:30 100 20 119/64 (82) 01/01/20 13:00 115 18 146/82 (103) 100 01/01/20 12:58 109 133/76 01/01/20 12:30 109 19 133/76 (95) 100 01/01/20 12:00 40 01/01/20 12:00 Mechanical Ventilator 01/01/20 12:00 20 114/61 Mechanical Ventilator 45 01/01/20 12:00 99.0 103 17 114/61 (78) 100 01/01/20 12:00 108 01/01/20 11:28 102 20 45 01/01/20 11:00 97 17 105/59 (74) 100 01/01/20 11:00 19 105/59 Mechanical Ventilator 45 01/01/20 10:30 95 19 101/88 (92) 99 01/01/20 10:00 18 119/76 Mechanical Ventilator 45 01/01/20 10:00 98 20 106/64 (78) 100 Objective: CONDITION: critical General Appearance: morbidly obese , sedated, on vent AC 600-20-40% PEEP 5 Lines, tubes and drains: LUE PICC new , intact HEENT: normocephalic, atraumatic, anicteric, NGT in , OP with ET Neck: non-tender Respiratory/Chest: chest wall non-tender, no accessory muscle use, scattered rhonchi Cardiovascular/Chest: irregularly irregular - A fib , tachy at times , distant heart sounds, Abdomen: normal bowel sounds, non tender , obese, soft : Lockett Extremities: no calf tenderness, moderate edema - +3 BLE, R knee with large hematoma, edema, Skin Exam: warm/dry, multiple tattoos Neurologic: sedated Musculoskeletal: normal muscle bulk Accucheck: 108 Critical Care - Subjective ROS Limited/Unobtainable: Yes Interval Events: intermittent fevers, currently afebrile leukopenic failing weaning trials on high PS code status changed to DNR/DNI sedated, on fentanyl gtt and versed prn ( frequency changed) thoracentesis pending Hgb down to 6.9 creat stable down to 1.4 Condition: critical IV Access: PICC - LUE PICC intact EKG Rhythm: Atrial Fibrillation FI02: 45 Vent Support Breath Rate: 20 Vent Support Mode: AC Vent Tidal Volume: 600 Sputum Amount: Scant - scant amount, white color, thin consistency PEEP: 5.0 PIP: 50 Drips: Fentanyl gtt 300 mcg/hr Tube Feeding Amount: 10 I&O: Intake and Output 01/01/20 01/02/20 19:00 07:00 Intake Total 1925 ml 1674.5 ml Output Total 1050 ml 1260 ml Balance 875 ml 414.5 ml Free Water 120 ml 30 ml IV Total 1310 ml 1209.5 ml Tube Feeding 495 ml 435 ml Output Urine Total 1050 ml 1260 ml CXR: 12/29 Moderate right pleural effusion and Suspected retrocardiac infiltrate. Nt much changes from prior CXR ET-Tube: 7.5 ET Position: 24 Igor Carpio MD 01/02/20 1108: Critical Care - Asmt/Plan Assessment/Plan: Patient seen and examined with ENGINEER SYSTEM ADMINISTRATOR. Agree with above A&P as it reflects our joint deliberations. Now DNAR, pancytopenic, getting PRBC, failed SBT 2/2 apnea Prognosis grave Consider palliative extubation vs trach Will d/w Dr. Dumont and team CCT 40 Luz Bowen ENGINEER SYSTEM ADMINISTRATOR Jan 02, 2020 09:50 Igor Carpio MD Jan 02, 2020 11:08
--- NOTE | 2020-01-02 10:00 | NUR ---
NURSE NOTES: AM meds were administered, however Lovenox and Metoprolol were held, due to Platelet 82, Hbg 6.9; and for low HR and hypotension.
--- NOTE | 2020-01-02 10:10 | NUR ---
RESPIRATORY NOTE: Placed Pt on CPAP PS 8 per MD weaning order. Pt was off sedation. Mandy COHEN at bedside. Tried to arouse pt to breathe. Pt made no effort to breathe spontaneously. Tidal Volumes were <100. Pt became apneic. Placed back on previously ordered AC vent settings.
--- NOTE | 2020-01-02 11:00 | NUR ---
NURSE NOTES: Pt is now at RASS score of 0 (alert+calm) while maintained on max dose of Fentanyl drip at 300mcg/hr per MD order. Pt remains with bilateral soft/wrist restraint to prevent self-extubation. Skin and vascular integrity at restraint site remains within normal limits.
--- NOTE | 2020-01-02 12:00 | NUR ---
NURSE NOTES: NURSE NOTES: Danuta from ultrasound/radiology is at the nurse's station. Per Danuta, "radiologist spoke with Dr. Stewart regarding the ordered thoracentesis, which will be placed on hold for now, due to pt's COVID+ status". Pt remains afebrile while maintained on cooling blanket, temp 97.7F via rectal thermometer.
--- NOTE | 2020-01-02 13:00 | NUR ---
NURSE NOTES: Pt was seen by Luz Bowen CONTINUOUS IMPROVEMENT MANAGER. Order noted to transfuse 1unit of PRBC to replace Hgb=6.9. Blood specimen was collected for Type+Cross and sent to lab, Consent in chart, awaiting for blood supply from blood bank.
--- NOTE | 2020-01-02 13:00 | NUR ---
NURSE NOTES: Versed was administered per PRN order for anxiety, as pt is noted to be restless, RASS score of +1 restless despite being on max rate of Fentanyl drip at 300mcg/hour.
[2020-01-02] MEDS ORDERED: Tubing IV Secondary IV ONE (13:32)
[2020-01-02] MEDS ORDERED: NS 275ml ONE (13:32)
--- NOTE | 2020-01-02 14:37 | Surgery Progress Note ---
Surgery Progress Note Subjective Additional Comments ill appearing no n/v labs noted leg hematoma stable Objective Last 24 Hour Vital Signs Date Time Temp Pulse Resp B/P (MAP) Pulse Ox O2 Delivery O2 Flow Rate FiO2 01/02/20 13:00 81 2 155/82 (106) 100 01/02/20 12:52 88 147/74 01/02/20 12:00 Mechanical Ventilator 01/02/20 12:00 40 01/02/20 12:00 97.9 80 18 147/74 (98) 100 01/02/20 12:00 88 01/02/20 11:30 81 20 144/72 (96) 100 01/02/20 11:23 94 20 40 01/02/20 11:00 76 20 136/61 (86) 100 01/02/20 10:30 87 17 122/64 (83) 100 01/02/20 10:12 100 01/02/20 10:00 104 16 102/47 (65) 98 01/02/20 09:35 20 123/90 Mechanical Ventilator 45 01/02/20 09:30 96 20 120/93 (102) 100 01/02/20 09:00 112 16 100/77 (85) 98 01/02/20 09:00 73 100/70 01/02/20 08:30 112 16 103/77 (86) 99 01/02/20 08:00 98.0 102 18 115/66 (82) 100 01/02/20 08:00 91 01/02/20 08:00 Mechanical Ventilator 01/02/20 08:00 40 01/02/20 07:00 73 18 92/56 (68) 99 01/02/20 06:55 102 21 40 01/02/20 06:14 16 123/84 Mechanical Ventilator 40 01/02/20 06:00 16 105/64 Mechanical Ventilator 40 01/02/20 06:00 90 16 105/64 (78) 100 01/02/20 05:40 16 109/61 Mechanical Ventilator 40 01/02/20 05:39 99 109/61 01/02/20 05:00 16 116/66 Mechanical Ventilator 40 01/02/20 05:00 77 16 116/66 (83) 100 01/02/20 04:30 16 97/57 Mechanical Ventilator 40 01/02/20 04:00 Mechanical Ventilator 01/02/20 04:00 99 01/02/20 04:00 15 99/64 Mechanical Ventilator 40 01/02/20 04:00 40 01/02/20 04:00 97.7 97 16 114/73 (87) 95 01/02/20 03:01 89 20 40 01/02/20 03:00 82 18 120/55 (76) 100 01/02/20 03:00 16 103/82 Mechanical Ventilator 40 01/02/20 02:00 92 10 117/61 (79) 99 01/02/20 02:00 18 117/61 Mechanical Ventilator 40 01/02/20 01:00 17 117/88 Mechanical Ventilator 40 01/02/20 01:00 72 15 93/44 (60) 99 01/02/20 00:00 80 01/02/20 00:00 40 01/02/20 00:00 20 114/67 Mechanical Ventilator 40 01/02/20 00:00 Mechanical Ventilator 01/02/20 00:00 99.2 77 20 126/79 (95) 100 01/01/20 23:16 107 136/86 01/01/20 23:00 88 17 113/72 (86) 100 01/01/20 23:00 20 136/86 Mechanical Ventilator 40 01/01/20 22:45 82 20 40 01/01/20 22:11 16 131/65 Mechanical Ventilator 40 01/01/20 22:00 16 109/62 Mechanical Ventilator 40 01/01/20 22:00 80 14 131/65 (87) 100 01/01/20 21:30 16 147/96 Mechanical Ventilator 40 01/01/20 21:00 103 15 143/84 (103) 100 01/01/20 21:00 15 138/77 Mechanical Ventilator 40 01/01/20 20:40 102 121/72 01/01/20 20:30 19 118/64 Mechanical Ventilator 40 01/01/20 20:00 Mechanical Ventilator 01/01/20 20:00 40 01/01/20 20:00 99.6 98 11 130/70 (90) 100 01/01/20 20:00 16 123/86 Mechanical Ventilator 40 01/01/20 20:00 81 01/01/20 19:30 97 20 45 01/01/20 19:00 18 114/68 Mechanical Ventilator 45 01/01/20 19:00 89 20 114/68 (83) 100 01/01/20 18:00 96 22 109/53 (71) 100 01/01/20 18:00 18 121/68 Mechanical Ventilator 45 01/01/20 17:30 118 14 114/96 (102) 94 01/01/20 17:07 101 114/96 01/01/20 17:00 118 12 129/78 (95) 92 01/01/20 17:00 18 114/96 Mechanical Ventilator 45 01/01/20 16:30 104 1 132/90 (104) 01/01/20 16:00 100 01/01/20 16:00 98.0 129 19 145/82 (103) 92 01/01/20 16:00 40 01/01/20 16:00 20 132/70 Mechanical Ventilator 45 01/01/20 16:00 Mechanical Ventilator 01/01/20 15:29 108 20 45 01/01/20 15:00 108 13 106/77 (87) 99 01/01/20 15:00 18 106/77 Mechanical Ventilator 45 I&O Intake and Output 01/01/20 01/02/20 19:00 07:00 Intake Total 1925 ml 1674.5 ml Output Total 1050 ml 1260 ml Balance 875 ml 414.5 ml Free Water 120 ml 30 ml IV Total 1310 ml 1209.5 ml Tube Feeding 495 ml 435 ml Output Urine Total 1050 ml 1260 ml Dressing: saturated Cardiovascular: RSR Respiratory: decreased breath sounds Abdomen: soft, non-tender, present bowel sounds, decreased bowel sounds Extremities: edema, cyanosis Laboratory Tests Test 01/02/20 04:00 01/02/20 09:56 White Blood Count 2.6 K/UL (4.8-10.8) L Red Blood Count 2.46 M/UL (4.20-5.40) L Hemoglobin 6.9 G/DL (12.0-16.0) *L Hematocrit 21.6 % (37.0-47.0) L Mean Corpuscular Volume 88 FL (80-99) Mean Corpuscular Hemoglobin 28.2 PG (27.0-31.0) Mean Corpuscular Hemoglobin Concent 32.1 G/DL (32.0-36.0) Red Cell Distribution Width 17.9 % (11.6-14.8) H Platelet Count 82 K/UL (150-450) L Mean Platelet Volume 7.5 FL (6.5-10.1) Neutrophils (%) (Auto) % (45.0-75.0) Lymphocytes (%) (Auto) % (20.0-45.0) Monocytes (%) (Auto) % (1.0-10.0) Eosinophils (%) (Auto) % (0.0-3.0) Basophils (%) (Auto) % (0.0-2.0) Differential Total Cells Counted 100 Neutrophils % (Manual) 82 % (45-75) H Lymphocytes % (Manual) 13 % (20-45) L Monocytes % (Manual) 5 % (1-10) Eosinophils % (Manual) 0 % (0-3) Basophils % (Manual) 0 % (0-2) Band Neutrophils 0 % (0-8) Platelet Estimate Decreased L Platelet Morphology Normal Anisocytosis 1+ Sodium Level 144 MMOL/L (136-145) Potassium Level 3.2 MMOL/L (3.5-5.1) L Chloride Level 103 MMOL/L (98-107) Carbon Dioxide Level 36 MMOL/L (21-32) H Anion Gap 5 mmol/L (5-15) Blood Urea Nitrogen 75 mg/dL (7-18) H Creatinine 1.4 MG/DL (0.55-1.30) H Estimat Glomerular Filtration Rate 37.5 mL/min (>60) Glucose Level 103 MG/DL (74-106) Calcium Level 8.6 MG/DL (8.5-10.1) Arterial Blood pH 7.502 (7.350-7.450) Arterial Blood Partial Pressure CO2 46.1 mmHg (35.0-45.0) H Arterial Blood Partial Pressure O2 93.9 mmHg (75.0-100.0) Arterial Blood HCO3 35.3 mmol/L (22.0-26.0) H Arterial Blood Oxygen Saturation 96.2 % (95-100) Arterial Blood Base Excess 11.0 (-2-2) *H Eugene Test Positive Plan Problems: (1) Urinary tract infection (2) CHF exacerbation (3) History of schizophrenia (4) Atrial fibrillation with RVR (5) Schizophrenia (6) GERD (gastroesophageal reflux disease) (7) Smoker (8) Atrial fibrillation with rapid ventricular response (9) Lymphadema (10) COPD (chronic obstructive pulmonary disease) (11) CKD (chronic kidney disease) stage 3, GFR 30-59 ml/min (12) NATALIE (acute kidney injury) (13) Dehydration (14) Dysphagia (15) UTI (urinary tract infection) (16) UGI bleed (17) ESBL (extended spectrum beta-lactamase) producing bacteria infection (18) Constipation (19) Lactic acidosis (20) Tinea cruris (21) Onychomycosis (22) Emesis (23) Essential hypertension (24) Anemia (25) Cough (26) Depression (27) Depression (28) Edema (29) Rash (30) Opiate dependence (31) Opiate dependence (32) Opiate dependence (33) Opiate dependence (34) Pyelonephritis (35) Sepsis (36) UTI (urinary tract infection) (37) Nausea and vomiting (38) Abdominal pain Assessment & Plan: [age]-year-old female obese white abdominal pain deep tissue injury identified limited mobility on HD. KUB noted tube in place continue meds feeds Does not seem obstructed We will monitor lines noted. plan change resume tube feeds labs okay FINDINGS: Lower thorax: Obscuration of the left costophrenic angle suggestive of pleural effusion. Intraperitoneal space: No free air. Gastrointestinal tract: Unremarkable. No dilation. Bones/joints: Unremarkable. Tubes, lines and devices: The nasogastric tube has the tip at the mid inferior aspect of the gastric body. Other findings: Nonspecific gas pattern. Single frontal view of the abdomen demonstrates tip of the enteric tube and distal side-port projecting over the stomach. Gas is identified within the nondistended large bowel. There is a paucity of small bowel gas seen. Partially visualized left pleural effusion. No other significant interval change. (39) Chest pain (40) Chest pain (41) Nausea (42) Obesity (43) Chronic ulcer of leg (44) Chronic ulcer of leg (45) Chronic ulcer of leg (46) ACS (acute coronary syndrome) (47) Acute chest pain (48) Encounter for dressing change or suture removal (49) Left leg cellulitis (50) Acute encephalopathy (51) Encounter for wound re-check (52) Intractable nausea and vomiting (53) Infection due to ESBL-producing Escherichia coli (54) Chronic venous stasis (55) Change of dressing (56) Change of dressing (57) Change of dressing (58) Change of dressing (59) Change of dressing (60) Change of dressing (61) Change of dressing (62) Change of dressing (63) ESBL urine (64) Lymphadema (65) Lymphedema (66) Lymphedema (67) Lymphedema (68) Lymphedema (69) Lymphedema (70) Lymphedema (71) Lymphedema (72) Lymphedema (73) Open wound of foot (74) Open wound of foot (75) cellulitis (76) chronic lymphedema (77) chronic lymphedema (78) chronic lymphedema (79) hypertension uncontrolled (80) hypertension uncontrolled (81) Intertrigo (82) Sciatica (83) Cellulitis (84) Schizophrenia (85) Chronic bronchitis (86) HTN (hypertension) (87) Venous stasis ulcers (88) Medication refill (89) Chest pain, atypical (90) BMI 45.0-49.9, adult (91) Lymphedema of both lower extremities (92) hypertension uncontrolled (93) hypertension uncontrolled (94) hypertension uncontrolled (95) tenia corpus (96) Deep tissue injury Assessment & Plan: Morbidly obese pt whom presented on admission with Pressure injuries, Edemae bilat lower extremities eschar to dorsal aspects of metatarsa ls. Pt is very demanding of staff and can be resistive to repositioning. DTPI noted to L Sacrum(L)5.5cm x (W)2.5cm. Base of Pressure Injury is Maroon and indurated with surrounding non-blanchable erythema DTPI R Sacrum(L)5.5cm x (W)2.3cm. Base of Pressure Injury is maroon with purpuric center that is fluctuant. Pt complained of tenderness when minimally palpated. Bilat lower extremities are edematous . Dry eschar noted to nail matrix and tip of L 1st metatarsal, Dorsal L 2nd metatarsal, R 2nd and R 4th metatarsals. Both heels are boggy with non-Blanchable erythema. blisters forming on Right lower extremity anterior tibia. not infected cellulitis / edema on b/l le stable cont abx Tx.Plan: Apply Moisture Barrier Paste to Sacrum R and L gluteal cheeks. Cover with Optifoam drsgs. Change every 3 days and prn. Apply Betadine to dry eschar metatarsals both feet Daily. Apply Cavilon Skin Barrier to both heels. Cover each heel with Optifoam drsgs. Change every 7days and prn. Reposition at least every 2hours or as tolerated. Off-load heels with pillow. right leg hematoma stable critically ill and edema on right leg has compromised dermis over the hematoma. will likely need debridement once improved (97) COVID-19 Assessment & Plan: ++ on vent weaning abx as per ID (98) Respiratory failure (99) Pneumonia Juan Manuel Buckner Jan 02, 2020 14:37
--- NOTE | 2020-01-02 15:05 | Infectious Diseases Prog Note ---
Assessment/Plan Assessment/Plan ASSESSMENT AND PLAN: 1. hx esbl e.coli uti/pyelonephritis, sepsis, leukocytosis, fevers mrsa and vre colonization, NATALIE, respiratory distress/failure Fungemia - + yeast in blood - ID still pending mrsa pna/acinetobacter pna VRE uti covid-19 infection right leg swelling and redness noted, ? cellulitis, ? infected hematoma, ? wound infection - zyvox, meropenem, polymyxin - day # 02/22 abx combination - micafungin - da# 11/22 post negative blood cultures - s/p remdesivir, on dexamethasone - monitor labs and chest x-ray - debridement right leg per surgery when patient stable - surveillance blood cultures negative - icu care, supportive care - d/w RN 2. Chronic kidney failure, acute renal failure. 3. COPD. 4. Pulmonary followup. 5. Renal followup. 6. History of falls. 7. Atrial fibrillation. Cardiology followup. 8. Obesity. 9. Gait disorder. 10. Schizophrenia. 11. Homeless. 12. Allergic to erythromycin, haloperidol, and vancomycin. 13. Social history is negative. 14. Family history is noncontributory. 15. MAR is noted. 16. Case discussed with RN. 17. Continue treatment per Dr. Dumont and consultants. Subjective Constitutional: Reports: fatigue, other - on vent ; Denies: fever HEENT: Reports: congestion Respiratory: Reports: shortness of breath Cardiovascular: Reports: other - no pressors Gastrointestinal/Abdominal: Denies: nausea, vomiting, diarrhea Genitourinary: Reports: other - + trivedi Neurologic: Reports: weakness Psychiatric: Reports: other - NA Skin: Denies: rash Hematologic: Denies: bleeding Musculoskeletal: Denies: pain Allergies: Coded Allergies: ERYTHROMYCIN BASE (Verified Allergy, Severe, 12/12/19) HALOPERIDOL (Verified Allergy, Unknown, 12/12/19) VANCOMYCIN (Unverified Adverse Reaction, Intermediate, Shortness of Breath, 12/12/19) Objective Last 24 Hour Vital Signs Date Time Temp Pulse Resp B/P (MAP) Pulse Ox O2 Delivery O2 Flow Rate FiO2 01/02/20 13:00 81 2 155/82 (106) 100 01/02/20 12:52 88 147/74 01/02/20 12:00 Mechanical Ventilator 01/02/20 12:00 40 01/02/20 12:00 97.9 80 18 147/74 (98) 100 01/02/20 12:00 88 01/02/20 11:30 81 20 144/72 (96) 100 01/02/20 11:23 94 20 40 01/02/20 11:00 76 20 136/61 (86) 100 01/02/20 10:30 87 17 122/64 (83) 100 01/02/20 10:12 100 01/02/20 10:00 104 16 102/47 (65) 98 01/02/20 09:35 20 123/90 Mechanical Ventilator 45 01/02/20 09:30 96 20 120/93 (102) 100 01/02/20 09:00 112 16 100/77 (85) 98 01/02/20 09:00 73 100/70 01/02/20 08:30 112 16 103/77 (86) 99 01/02/20 08:00 98.0 102 18 115/66 (82) 100 01/02/20 08:00 91 01/02/20 08:00 Mechanical Ventilator 01/02/20 08:00 40 01/02/20 07:00 73 18 92/56 (68) 99 01/02/20 06:55 102 21 40 01/02/20 06:14 16 123/84 Mechanical Ventilator 40 01/02/20 06:00 16 105/64 Mechanical Ventilator 40 01/02/20 06:00 90 16 105/64 (78) 100 01/02/20 05:40 16 109/61 Mechanical Ventilator 40 01/02/20 05:39 99 109/61 01/02/20 05:00 16 116/66 Mechanical Ventilator 40 01/02/20 05:00 77 16 116/66 (83) 100 01/02/20 04:30 16 97/57 Mechanical Ventilator 40 01/02/20 04:00 Mechanical Ventilator 01/02/20 04:00 99 01/02/20 04:00 15 99/64 Mechanical Ventilator 40 01/02/20 04:00 40 01/02/20 04:00 97.7 97 16 114/73 (87) 95 01/02/20 03:01 89 20 40 01/02/20 03:00 82 18 120/55 (76) 100 01/02/20 03:00 16 103/82 Mechanical Ventilator 40 01/02/20 02:00 92 10 117/61 (79) 99 9/23/20 02:00 18 117/61 Mechanical Ventilator 40 01/02/20 01:00 17 117/88 Mechanical Ventilator 40 01/02/20 01:00 72 15 93/44 (60) 99 01/02/20 00:00 80 01/02/20 00:00 40 01/02/20 00:00 20 114/67 Mechanical Ventilator 40 01/02/20 00:00 Mechanical Ventilator 01/02/20 00:00 99.2 77 20 126/79 (95) 100 01/01/20 23:16 107 136/86 01/01/20 23:00 88 17 113/72 (86) 100 01/01/20 23:00 20 136/86 Mechanical Ventilator 40 01/01/20 22:45 82 20 40 01/01/20 22:11 16 131/65 Mechanical Ventilator 40 01/01/20 22:00 16 109/62 Mechanical Ventilator 40 01/01/20 22:00 80 14 131/65 (87) 100 01/01/20 21:30 16 147/96 Mechanical Ventilator 40 01/01/20 21:00 103 15 143/84 (103) 100 01/01/20 21:00 15 138/77 Mechanical Ventilator 40 01/01/20 20:40 102 121/72 01/01/20 20:30 19 118/64 Mechanical Ventilator 40 01/01/20 20:00 Mechanical Ventilator 01/01/20 20:00 40 01/01/20 20:00 99.6 98 11 130/70 (90) 100 01/01/20 20:00 16 123/86 Mechanical Ventilator 40 01/01/20 20:00 81 01/01/20 19:30 97 20 45 01/01/20 19:00 18 114/68 Mechanical Ventilator 45 01/01/20 19:00 89 20 114/68 (83) 100 01/01/20 18:00 96 22 109/53 (71) 100 01/01/20 18:00 18 121/68 Mechanical Ventilator 45 01/01/20 17:30 118 14 114/96 (102) 94 01/01/20 17:07 101 114/96 01/01/20 17:00 118 12 129/78 (95) 92 01/01/20 17:00 18 114/96 Mechanical Ventilator 45 01/01/20 16:30 104 1 132/90 (104) 01/01/20 16:00 100 01/01/20 16:00 98.0 129 19 145/82 (103) 92 01/01/20 16:00 40 01/01/20 16:00 20 132/70 Mechanical Ventilator 45 01/01/20 16:00 Mechanical Ventilator 01/01/20 15:29 108 20 45 01/01/20 15:00 108 13 106/77 (87) 99 01/01/20 15:00 18 106/77 Mechanical Ventilator 45 Height (Feet): 5 Height (Inches): 6.00 Weight (Pounds): 298 General Appearance: other - no HEENT: normocephalic, atraumatic, anicteric Respiratory/Chest: crackles/rales, rhonchi - bilaterally Cardiovascular: normal rate, regular rhythm, no gallop/murmur, no JVD Abdomen: normal bowel sounds, soft, non tender, no organomegaly, non distended Genitourinary: other - + trivedi Extremities: no cyanosis Skin: no rash Neurologic/Psychiatric: other - weak, on vent Lymphatic: no neck adenopathy Musculoskeletal: no effusion Chest x-ray - 11/17/19 - Procedure: XRAY Chest 1v Indication: Shortness of breath Technique: One view of the chest Comparison: 12/17/2019 Findings: The heart is enlarged. There is bilateral interstitial and airspace disease is again demonstrated, probably unchanged allowing for differences in degree of inspiration. Impression: Unchanged, over one day, findings as above. Chest x-ray - 12/21/19 - Procedure: XRAY Chest 1v Indication: Shortness of breath Technique: One view of the chest Comparison: 12/19/2019 Findings: The heart is enlarged. Bilateral extensive infiltrates are again demonstrated, stable to slightly worse allowing for differences in exposure technique. There is suggestion of increasing pleural fluid on the left. Wilian ogastric tube is again demonstrated. Impression: Stable to worsened bilateral extensive infiltrates, since exam of 2 days prior Increasing left pleural effusion Chest x-ray - 12/23/19 - IMPRESSION: 1. No significant interval change from the prior chest x-ray. 2. Persistent moderate left pleural effusion and mild right pleural effusion. 3. Pulmonary vascular congestion. 4. Persistent opacity in the left lung base, which may represent atelectasis versus pneumonia. Chest x-ray - 12/25/19 - Procedure: XRAY Chest 1v Procedure: XRAY Chest 1v Reason for study: Reason For Exam: SOB Comparison films: 12/24/2019. FINDINGS: The tracheal tube and NG tube remain in place. Vascular prominence and bilateral hazy alveolar densities are unchanged. Cardiomegaly and small effusions also unchanged. The bony thorax appear unremarkable. IMPRESSION: NO SIGNIFICANT CHANGE COMPARED TO PREVIOUS EXAM. 12/26/19 - Procedure: XRAY Chest 1v Procedure: XRAY Chest 1v Reason for study: Reason For Exam: SOB Comparison films: 12/25/2019. FINDINGS: Endotracheal tube and NG tube remain in place. Hazy bilateral alveolar densities are essentially unchanged given the difference in technique. Cardiomegaly and right effusion again noted. The bony thorax appear unremarkable. IMPRESSION: NO SIGNIFICANT CHANGE COMPARED TO PREVIOUS EXAM. Chest x-ray - 12/28/19 - Procedure: XRAY Chest 1v Indication: Reason For Exam: SOB Technique: Single AP view of the chest. Comparison: Chest radiograph dated 12/27/2019 Findings: Exam is again noted to be diagnostically limited due to underpenetration, patient rotation, and exclusion of part of the left hemithorax from the [id number]. Within these limitations: No significant change in appearance of visualized cardiomediastinal silhouette. Unchanged layering right pleural effusion with associated basilar airspace opacities. Likely retrocardiac consolidation, unchanged. No apical pneumothoraces. Unchanged enteric and endotracheal tubes. Unchanged left PICC. Chest x-ray - 12/30/19 - FINDINGS: Distal tip of ET tube is above devika. Distal tip of the enteric tube is in stomach. Stable left arm PICC line with distal tip likely in the left subclavian vein. Cardiac silhouette is within normal limits allowing for portable and rotated technique. Low lung volumes with elevated left hemidiaphragm. Again noted is a moderate right effusion with patchy infiltrates in the right mid to lower lung. Probable retrocardiac infiltrates. IMPRESSION: Little interval change in moderate right effusion and pneumonia/aspiration. Suspected retrocardiac infiltrate. The distal tip of the left arm PICC line is not well seen past the level of the left mid subclavian vein. [place] location is in the cavoatrial junction. Recommend advancement. <MYCVCSECTION> Microbiology Date/Time Source Procedure Growth Status 12/25/19 15:45 Blood Blood Culture - Preliminary NO GROWTH AFTER 4 DAYS Resulted 12/23/19 23:50 Nasopharynx SARS-CoV-2 RdRp Gene Assay - Final Complete 12/17/19 20:45 Indwelling Cath Urine Culture - Final Enterococcus Faecium - Vre Complete 12/12/19 21:00 Rectum - Final NO CARBAPENEM-RESISTANT ENTEROBACTERI... Complete Laboratory Tests Test 01/02/20 04:00 01/02/20 09:56 White Blood Count 2.6 K/UL (4.8-10.8) L Red Blood Count 2.46 M/UL (4.20-5.40) L Hemoglobin 6.9 G/DL (12.0-16.0) *L Hematocrit 21.6 % (37.0-47.0) L Mean Corpuscular Volume 88 FL (80-99) Mean Corpuscular Hemoglobin 28.2 PG (27.0-31.0) Mean Corpuscular Hemoglobin Concent 32.1 G/DL (32.0-36.0) Red Cell Distribution Width 17.9 % (11.6-14.8) H Platelet Count 82 K/UL (150-450) L Mean Platelet Volume 7.5 FL (6.5-10.1) Neutrophils (%) (Auto) % (45.0-75.0) Lymphocytes (%) (Auto) % (20.0-45.0) Monocytes (%) (Auto) % (1.0-10.0) Eosinophils (%) (Auto) % (0.0-3.0) Basophils (%) (Auto) % (0.0-2.0) Differential Total Cells Counted 100 Neutrophils % (Manual) 82 % (45-75) H Lymphocytes % (Manual) 13 % (20-45) L Monocytes % (Manual) 5 % (1-10) Eosinophils % (Manual) 0 % (0-3) Basophils % (Manual) 0 % (0-2) Band Neutrophils 0 % (0-8) Platelet Estimate Decreased L Platelet Morphology Normal Anisocytosis 1+ Sodium Level 144 MMOL/L (136-145) Potassium Level 3.2 MMOL/L (3.5-5.1) L Chloride Level 103 MMOL/L (98-107) Carbon Dioxide Level 36 MMOL/L (21-32) H Anion Gap 5 mmol/L (5-15) Blood Urea Nitrogen 75 mg/dL (7-18) H Creatinine 1.4 MG/DL (0.55-1.30) H Estimat Glomerular Filtration Rate 37.5 mL/min (>60) Glucose Level 103 MG/DL (74-106) Calcium Level 8.6 MG/DL (8.5-10.1) Arterial Blood pH 7.502 (7.350-7.450) Arterial Blood Partial Pressure CO2 46.1 mmHg (35.0-45.0) H Arterial Blood Partial Pressure O2 93.9 mmHg (75.0-100.0) Arterial Blood HCO3 35.3 mmol/L (22.0-26.0) H Arterial Blood Oxygen Saturation 96.2 % (95-100) Arterial Blood Base Excess 11.0 (-2-2) *H Eugene Test Positive Current Medications Medications (Trade) Dose Ordered Sig/Shiraz Route PRN Reason Start Time Stop Time Status Last Admin Dose Admin Acetaminophen (Tylenol) 650 mg Q4H PRN NG Temp >100.5 12/22/19 16:00 01/11/20 22:14 12/23/19 13:53 Acetaminophen (Tylenol) 650 mg Q4H PRN NG Mild Pain (Pain Scale 1-3) 12/22/19 16:00 01/11/20 22:14 12/28/19 05:27 Albuterol Sulfate (Proventil MDI) 2 puff Q4H PRN INH Shortness of Breath 12/24/19 10:30 03/23/20 10:29 Bacitracin (Bacitracin 15gm tube) 1 applic BID TOPIC 12/22/19 18:00 03/12/20 08:59 01/02/20 09:43 Chlorhexidine Gluconate (Jessie-Hex 2%) 1 applic DAILY@1999 TOPIC 12/24/19 20:00 03/23/20 19:59 01/01/20 20:40 Chlorpromazine (Thorazine) 50 mg Q6H PRN IM agitation 12/30/19 02:30 01/29/20 02:29 01/02/20 09:43 Clotrimazole (Lotrimin) 1 applic TWICE A DAY TOPIC 12/22/19 18:00 03/12/20 08:59 01/02/20 09:42 Dexamethasone Sodium Phosphate (Decadron 10mg/ ml Inj) 6 mg DAILY IV 12/24/19 09:00 01/03/20 08:59 01/02/20 09:41 Dextrose (Dextrose 50%) 25 ml Q30M PRN IV Hypoglycemia 12/23/19 10:45 03/22/20 10:44 Dextrose (Dextrose 50%) 50 ml Q30M PRN IV Hypoglycemia 12/23/19 10:45 03/22/20 10:44 Diltiazem HCl (Cardizem Tab) 90 mg Q6HR NG 12/22/19 18:00 01/13/20 11:59 01/02/20 12:52 Docusate Sodium (Colace) 100 mg BID NG 12/25/19 09:00 01/24/20 08:59 01/02/20 09:43 Enoxaparin Sodium (Lovenox) 60 mg DAILY SUBQ 12/23/19 09:00 03/22/20 08:59 12/29/19 08:50 Famotidine (Pepcid I.v.) 20 mg Q12HR IVP 12/25/19 09:00 01/24/20 08:59 01/02/20 09:41 Fentanyl Citrate 250 ml @ 1 mls/hr Q24H IV 01/02/20 08:00 01/04/20 07:59 01/02/20 09:35 Furosemide (Lasix) 60 mg Q6HR IV 12/31/19 12:00 01/30/20 11:59 01/02/20 12:52 Insulin Aspart (NovoLOG) BEFORE MEALS AND HS SUBQ 12/23/19 11:30 03/22/20 11:29 12/31/19 20:31 Linezolid 300 ml @ 300 mls/hr Q12HR IVPB 12/31/19 21:00 01/04/20 20:59 01/02/20 09:42 Magnesium Hydroxide (Mom) 30 ml HSPRN PRN NG Constipation 12/22/19 15:15 01/21/20 15:14 01/02/20 03:40 Meropenem 1 gm/ Sodium Chloride 55 ml @ 110 mls/hr Q12HR@0400,1600 IVPB 01/02/20 16:00 01/07/20 15:59 Metoprolol Tartrate (Lopressor) 50 mg Q12HR NG 12/22/19 21:00 03/18/20 20:59 01/01/20 20:40 Micafungin Sodium 100 mg/Sodium Chloride 110 ml @ 110 mls/hr Q24H IVPB 12/27/19 09:00 01/05/20 08:59 01/02/20 09:42 Midazolam HCl (Versed 2mg/2ml vial) 2 mg Q1H PRN IVP For Anxiety 01/02/20 07:45 01/09/20 07:44 01/02/20 12:53 Nitroglycerin (Ntg) 0.4 mg Q5M PRN SL Prn Chest Pain 12/22/19 15:00 01/11/20 22:14 Ondansetron HCl (Zofran) 4 mg Q6H PRN IVP Nausea & Vomiting 12/22/19 15:15 01/11/20 15:14 Pantoprazole (Protonix) 40 mg EVERY 12 HOURS IVP 01/01/20 21:00 01/31/20 20:59 01/02/20 09:41 Polyethylene Glycol (Miralax) 17 gm BEDTIME NG 12/22/19 21:00 01/18/20 20:59 01/01/20 20:38 Polymyxin B Sulfate 035135 units/Dextrose 550 ml @ 550 mls/hr EVERY 12 HOURS IV 12/29/19 21:00 01/05/20 20:59 01/02/20 09:41 Quetiapine Fumarate (SEROqueL) 100 mg EVERY 8 HOURS ORAL 01/02/20 06:00 02/16/20 05:59 01/02/20 12:52 Aleisha Coronel MD Jan 02, 2020 15:05
--- NOTE | 2020-01-02 15:32 | NUR ---
CASE MANAGEMENT: REVIEW 01/02/20 SI: COVID-19 PNA . CHF . ATRIAL FIBRILLATION W/RVR . COPD . NATALIE . ANEMIA 98.0 102 18 115/66 100% MECH VENT FIO2 40 WBC 2.6 H/H 6.9/21.6 PLT 82 K+3.2 CO2 36 BUN/CREAT 75/1.4 ABG: pH 7.502 pCO2 46.1 HCO3 35.3 BASE EXCESS 11.0 IS: LASIX IV Q6HR FENTANYL IV Q24~TITRATING MEROPENEM IV Q12HR POLYMYXIN IV Q12HR ZYVOX IV Q12HR MICAFUNGIN IV Q24HR DECADRON IV QD NGT FEEDING SEROQUEL PO TID BLOOD TRANSFUSION X1 ICU STATUS PLAN: ADJUST VENT SETTINGS CONTROL HR ~TACHY MONITOR H/H
--- NOTE | 2020-01-02 16:00 | NUR ---
NURSE NOTES: Dr. Dumont is at the nurse's station. MD was updated on pt's status and regarding K level drop to 3.2 while pt remains on Lasix IVP Q6 hours. Per , order will be placed for Kdur 40meq [id number] via NGT.
--- NOTE | 2020-01-02 16:30 | NUR ---
NURSE NOTES: Blood transfusion was started for 1unit of PRBC per MD order. Pt is afebrile while maintained on cooling blanket, temp 97.7F rectal. Pt remains on Fentanyl drip at 300mcg/hr.
--- NOTE | 2020-01-02 16:36 | General Progress Note ---
Subjective ROS Limited/Unobtainable: Yes Allergies: Coded Allergies: ERYTHROMYCIN BASE (Verified Allergy, Severe, 12/12/19) HALOPERIDOL (Verified Allergy, Unknown, 12/12/19) VANCOMYCIN (Unverified Adverse Reaction, Intermediate, Shortness of Breath, 12/12/19) Objective Last 24 Hour Vital Signs Date Time Temp Pulse Resp B/P (MAP) Pulse Ox O2 Delivery O2 Flow Rate FiO2 01/02/20 15:00 76 20 111/65 (80) 100 01/02/20 15:00 107 21 40 01/02/20 14:00 92 16 124/61 (82) 100 01/02/20 13:00 81 2 155/82 (106) 100 01/02/20 12:52 88 147/74 01/02/20 12:00 Mechanical Ventilator 01/02/20 12:00 40 01/02/20 12:00 97.9 80 18 147/74 (98) 100 01/02/20 12:00 88 01/02/20 11:30 81 20 144/72 (96) 100 01/02/20 11:23 94 20 40 01/02/20 11:00 76 20 136/61 (86) 100 01/02/20 10:30 87 17 122/64 (83) 100 01/02/20 10:12 100 01/02/20 10:00 104 16 102/47 (65) 98 01/02/20 09:35 20 123/90 Mechanical Ventilator 45 01/02/20 09:30 96 20 120/93 (102) 100 01/02/20 09:00 112 16 100/77 (85) 98 01/02/20 09:00 73 100/70 01/02/20 08:30 112 16 103/77 (86) 99 01/02/20 08:00 98.0 102 18 115/66 (82) 100 01/02/20 08:00 91 01/02/20 08:00 Mechanical Ventilator 01/02/20 08:00 40 01/02/20 07:00 73 18 92/56 (68) 99 01/02/20 06:55 102 21 40 01/02/20 06:14 16 123/84 Mechanical Ventilator 40 01/02/20 06:00 16 105/64 Mechanical Ventilator 40 01/02/20 06:00 90 16 105/64 (78) 100 01/02/20 05:40 16 109/61 Mechanical Ventilator 40 01/02/20 05:39 99 109/61 01/02/20 05:00 16 116/66 Mechanical Ventilator 40 01/02/20 05:00 77 16 116/66 (83) 100 01/02/20 04:30 16 97/57 Mechanical Ventilator 40 01/02/20 04:00 Mechanical Ventilator 01/02/20 04:00 99 01/02/20 04:00 15 99/64 Mechanical Ventilator 40 01/02/20 04:00 40 01/02/20 04:00 97.7 97 16 114/73 (87) 95 01/02/20 03:01 89 20 40 01/02/20 03:00 82 18 120/55 (76) 100 01/02/20 03:00 16 103/82 Mechanical Ventilator 40 01/02/20 02:00 92 10 117/61 (79) 99 01/02/20 02:00 18 117/61 Mechanical Ventilator 40 01/02/20 01:00 17 117/88 Mechanical Ventilator 40 01/02/20 01:00 72 15 93/44 (60) 99 01/02/20 00:00 80 01/02/20 00:00 40 01/02/20 00:00 20 114/67 Mechanical Ventilator 40 01/02/20 00:00 Mechanical Ventilator 01/02/20 00:00 99.2 77 20 126/79 (95) 100 01/01/20 23:16 107 136/86 01/01/20 23:00 88 17 113/72 (86) 100 01/01/20 23:00 20 136/86 Mechanical Ventilator 40 01/01/20 22:45 82 20 40 01/01/20 22:11 16 131/65 Mechanical Ventilator 40 01/01/20 22:00 16 109/62 Mechanical Ventilator 40 01/01/20 22:00 80 14 131/65 (87) 100 01/01/20 21:30 16 147/96 Mechanical Ventilator 40 01/01/20 21:00 103 15 143/84 (103) 100 01/01/20 21:00 15 138/77 Mechanical Ventilator 40 01/01/20 20:40 102 121/72 01/01/20 20:30 19 118/64 Mechanical Ventilator 40 01/01/20 20:00 Mechanical Ventilator 01/01/20 20:00 40 01/01/20 20:00 99.6 98 11 130/70 (90) 100 01/01/20 20:00 16 123/86 Mechanical Ventilator 40 01/01/20 20:00 81 01/01/20 19:30 97 20 45 01/01/20 19:00 18 114/68 Mechanical Ventilator 45 01/01/20 19:00 89 20 114/68 (83) 100 01/01/20 18:00 96 22 109/53 (71) 100 01/01/20 18:00 18 121/68 Mechanical Ventilator 45 01/01/20 17:30 118 14 114/96 (102) 94 01/01/20 17:07 101 114/96 01/01/20 17:00 118 12 129/78 (95) 92 01/01/20 17:00 18 114/96 Mechanical Ventilator 45 Intake and Output 01/01/20 01/02/20 19:00 07:00 Intake Total 1925 ml 1674.5 ml Output Total 1050 ml 1260 ml Balance 875 ml 414.5 ml Free Water 120 ml 30 ml IV Total 1310 ml 1209.5 ml Tube Feeding 495 ml 435 ml Output Urine Total 1050 ml 1260 ml Laboratory Tests 01/02/20 04:00: White Blood Count 2.6L, Red Blood Count 2.46L, Hemoglobin 6.9*L, Hematocrit 21.6L, Mean Corpuscular Volume 88, Mean Corpuscular Hemoglobin 28.2, Mean Corpuscular Hemoglobin Concent 32.1, Red Cell Distribution Width 17.9H, Platelet Count 82L, Mean Platelet Volume 7.5, Neutrophils (%) (Auto) , Lymphocytes (%) (Auto) , Monocytes (%) (Auto) , Eosinophils (%) (Auto) , Basophils (%) (Auto) , Differential Total Cells Counted 100, Neutrophils % (Manual) 82H, Lymphocytes % (Manual) 13L, Monocytes % (Manual) 5, Eosinophils % (Manual) 0, Basophils % (Manual) 0, Band Neutrophils 0, Platelet Estimate DecreasedL, Platelet Morphology Normal, Anisocytosis 1+, Sodium Level 144, Potassium Level 3.2L, Chloride Level 103, Carbon Dioxide Level 36H, Anion Gap 5, Blood Urea Nitrogen 75H, Creatinine 1.4H, Estimat Glomerular Filtration Rate 37.5, Glucose Level 103, Calcium Level 8.6 01/02/20 09:56: Arterial Blood pH 7.502H, Arterial Blood Partial Pressure CO2 46.1H, Arterial Blood Partial Pressure O2 93.9, Arterial Blood HCO3 35.3H, Arterial Blood Oxygen Saturation 96.2, Arterial Blood Base Excess 11.0*H, Eugene Test Positive Height (Feet): 5 Height (Inches): 6.00 Weight (Pounds): 298 General Appearance: other - sedated vent Cardiovascular: regularly irregular Respiratory/Chest: rhonchi - bilaterally Abdomen: soft, no organomegaly Edema: moderate edema Neurologic: unresponsive Assessment/Plan Problem List: (1) Schizophrenia ICD Codes: F20.9 - Schizophrenia, unspecified SNOMED: 58177817 (2) GERD (gastroesophageal reflux disease) ICD Codes: K21.9 - Gastro-esophageal reflux disease without esophagitis SNOMED: 901986550 (3) Lymphadema (4) Smoker ICD Codes: F17.200 - Nicotine dependence, unspecified, uncomplicated SNOMED: 27622081 (5) Atrial fibrillation with rapid ventricular response ICD Codes: I48.91 - Unspecified atrial fibrillation SNOMED: 810824267482089 (6) CKD (chronic kidney disease) stage 3, GFR 30-59 ml/min ICD Codes: N18.3 - Chronic kidney disease, stage 3 (moderate) SNOMED: 085617547 (7) NATALIE (acute kidney injury) ICD Codes: N17.9 - Acute kidney failure, unspecified SNOMED: 8651366, 48848564 (8) COPD (chronic obstructive pulmonary disease) ICD Codes: J44.9 - Chronic obstructive pulmonary disease, unspecified SNOMED: 28132196 (9) UGI bleed ICD Codes: K92.2 - Gastrointestinal hemorrhage, unspecified SNOMED: 98709143 (10) Dysphagia ICD Codes: R13.10 - Dysphagia, unspecified SNOMED: 10662496, 175912861 (11) UTI (urinary tract infection) ICD Codes: N39.0 - Urinary tract infection, site not specified SNOMED: 91552571 (12) ESBL (extended spectrum beta-lactamase) producing bacteria infection ICD Codes: A49.9 - Bacterial infection, unspecified; Z16.12 - Extended spectrum beta lactamase (ESBL) resistance SNOMED: 485944993 (13) Dehydration ICD Codes: E86.0 - Dehydration SNOMED: 97179499 (14) CHF exacerbation ICD Codes: I50.9 - Heart failure, unspecified SNOMED: 363495318, 09189728257022 (15) Acute respiratory failure ICD Codes: J96.00 - Acute respiratory failure, unspecified whether with hypoxia or hypercapnia SNOMED: 81974832 (16) COVID-19 ICD Codes: U07.1 - COVID-19 SNOMED: 876404326 (17) Pneumonia ICD Codes: J18.9 - Pneumonia, unspecified organism SNOMED: 999877769 Qualifiers: (18) Hematoma of lower leg ICD Codes: S80.10XA - Contusion of unspecified lower leg, initial encounter SNOMED: 051835939 (19) CKD (chronic kidney disease) stage 3, GFR 30-59 ml/min ICD Codes: N18.3 - Chronic kidney disease, stage 3 (moderate) SNOMED: 667258210 Status: stable Assessment/Plan: resp distress, icu, now intubated, natalie on ckd,,now stable, I/O, ,+hematoma RLE stop eliquis ancd asa, lovenox now iv protonix, rx esbl and + vre uti,g+ cocci linezolid , remains high risk, d/w psych, ID, cardiology, chf and on lasix ,covid neg prior now +, grave prognosis, fungemia on micafungin likely will be unable to wean for a long time, agitated when tried to wean and had apnea, and needs more sedation,all lab and orders reviewed , metabolic alkalosis and diamox added, replace K, icu time 35 min Benjamin Dumont MD Jan 02, 2020 16:36
[2020-01-02] MEDS: Meropenem 1gm/NS 55ml IVPB SCH ×2 (17:22)
--- NOTE | 2020-01-02 17:24 | NUR ---
NURSE NOTES: Versed and Thorazine were administered for anxiety and agitation per PRN orders, since pt is noted to be at RASS score of +1 restless while maintained on Fentanyl drip of 300mcg/hr.
--- NOTE | 2020-01-02 18:19 | NUR ---
NURSE NOTES: New Fentanyl bag was removed from the pyxis, since old bag is now empty. New bag/dose was verified with second RN, scanned, and is continuing same rate of 300mcg/hr, since pt becomes very restless.
--- NOTE | 2020-01-02 18:40 | NUR ---
NURSE NOTES: Blood transfusion is now complete. Pt received 1 unit of PRBC. Pt tolerated well with no signs/symptoms of any adverse reactions noted. VS remain stable. Pt was cleaned, gown/bed linens were changed. Pt remains on cooling blanket, with rectal thermometer to maintain normal body temps.
--- NOTE | 2020-01-02 19:05 | Diagnostic Imaging Report ---
Indication: Shortness of breath Technique: One view of the chest Comparison: 12/30/2019 Findings: Bilateral interstitial and airspace edema appears stable to slightly improved. Right pleural effusion appears decreased. Stable positions of endotracheal tube, orogastric tube, left arm PICC Impression: Single slightly improved bilateral interstitial and airspace edema. Evidence of decreased right pleural effusion.
--- NOTE | 2020-01-02 19:21 | NUR ---
RESPIRATORY NOTE: Received pt on AC 20, 600VT, 40%, PEEP +5. Pt intubated w/ ETT 7.5 @ 24cm lipline, secured by anchorfast. Pt is sedated. B/S heidi. rhonchi, sxn small amounts of thick, meléndez-yellow secretions. Bite block in place as pt tends to bite down ETT. Vent plugged into red outlet, Ambubag at bedside. Pt in no apparent distress at this time. Will continue to monitor pt.
--- NOTE | 2020-01-02 19:30 | NUR ---
NURSE HAND-OFF REPORT: Latest Vital Signs: Temperature 97.9 , Pulse 82 , B/P 155 /87 , Respiratory Rate 20 , O2 SAT 100 , Pt remains intubated with vent settings AC20, VT600, Peep 5, FIO2 45% at 100% O2Sat. Pt is now post 1unit of PRBC blood transfusion. Remains on cooling blanket for cooling measures. Tolerating NGT feeding Glucerna 1.5 at goal rate 45ml/hour, currently lowered to 10ml to prevent aspiration, since HOB is lowered to calm pt was restless while on max dose of Fentanyl drip at 300mcg/hr. EKG Rhythm: Atrial Fibrillation Rhythm change?: N Notified?: Elizabeth Meek MD Response: Latest Abreu Fall Score: 75 Fall Risk: High Risk Safety Measures: Call light Within Reach, Bed Alarm Zone 2, Side Rails Side Rails x3, Bed position Low and Locked. Fall Precautions: Yellow Socks Report given to Cathie COHEN. Endorsed plan of care.
--- NOTE | 2020-01-02 19:31 | NUR ---
NURSE NOTES: Patient received from NOEL Galvan. patient calm with 7.5 ETT at 24cm lip on ventilator AC 20 TV 600 FiO2 40% PEEP 5. BP140/80 HR103 Afib on monitor. Left upper arm running fentanyl 300mcg/hr with ecchymosis on arm from prior venipunctures. left hand #22 SL. left nare NGT running Glucerna 1.5 @10ml/hr, 80ml residual noted. Lockett catheter draining yellow urine. right knee hematoma, with dry open blisters, left knee ecchymosis, sacral DTPI, breast and abdominal skin fold redness noted. patient on P200 mattress, patient repositioned and oral care provided.
[2020-01-02] MEDS: Dyna-Hex 2% Top Sol 2oz TOPIC SCH (20:39)
[2020-01-02] MEDS: Miralax 17gm pkt NG SCH (20:40)
--- NOTE | 2020-01-02 22:00 | NUR ---
NURSE NOTES: patient relaxed after prn versed administered with 7.5 ETT at 24cm lip on ventilator AC 20 TV 600 FiO2 40% PEEP 5. BP176/89 HR84 Afib on monitor. Left upper arm running fentanyl 300mcg/hr with ecchymosis on arm from prior venipunctures. left hand #22 SL. left nare NGT running Glucerna 1.5 @10ml/hr, 80ml residual noted. trivedi catheter draining yellow urine. patient on P200 mattress, patient repositioned and oral care provided.
--- NOTE | 2020-01-02 23:04 | Psych Consult Progress Note ---
Psychiatry Progress Note Psychiatry Progress Note Subjective cont to be agitated and on bilat restraints. the pt is intubated and still gets agitated Medications Current Medications Medications (Trade) Dose Ordered Sig/Shiraz Route PRN Reason Start Time Stop Time Status Last Admin Dose Admin Acetaminophen (Tylenol) 650 mg Q4H PRN NG Temp >100.5 12/22/19 16:00 01/11/20 22:14 12/23/19 13:53 Acetaminophen (Tylenol) 650 mg Q4H PRN NG Mild Pain (Pain Scale 1-3) 12/22/19 16:00 01/11/20 22:14 12/28/19 05:27 Acetazolamide (Diamox) 500 mg TWICE A DAY NG 01/02/20 18:00 02/01/20 17:59 01/02/20 17:45 Albuterol Sulfate (Proventil MDI) 2 puff Q4H PRN INH Shortness of Breath 12/24/19 10:30 03/23/20 10:29 Bacitracin (Bacitracin 15gm tube) 1 applic BID TOPIC 12/22/19 18:00 03/12/20 08:59 01/02/20 17:23 Chlorhexidine Gluconate (Jessie-Hex 2%) 1 applic DAILY@1999 TOPIC 12/24/19 20:00 03/23/20 19:59 01/02/20 20:39 Chlorpromazine (Thorazine) 50 mg Q6H PRN IM agitation 12/30/19 02:30 01/29/20 02:29 01/02/20 17:24 Clotrimazole (Lotrimin) 1 applic TWICE A DAY TOPIC 12/22/19 18:00 03/12/20 08:59 01/02/20 17:23 Dexamethasone Sodium Phosphate (Decadron 10mg/ ml Inj) 6 mg DAILY IV 12/24/19 09:00 01/03/20 08:59 01/02/20 09:41 Dextrose (Dextrose 50%) 25 ml Q30M PRN IV Hypoglycemia 12/23/19 10:45 03/22/20 10:44 Dextrose (Dextrose 50%) 50 ml Q30M PRN IV Hypoglycemia 12/23/19 10:45 03/22/20 10:44 Diltiazem HCl (Cardizem Tab) 90 mg Q6HR NG 12/22/19 18:00 01/13/20 11:59 01/02/20 17:23 Docusate Sodium (Colace) 100 mg BID NG 12/25/19 09:00 01/24/20 08:59 01/02/20 17:23 Enoxaparin Sodium (Lovenox) 60 mg DAILY SUBQ 12/23/19 09:00 03/22/20 08:59 12/29/19 08:50 Famotidine (Pepcid I.v.) 20 mg Q12HR IVP 12/25/19 09:00 01/24/20 08:59 01/02/20 20:40 Fentanyl Citrate 250 ml @ 1 mls/hr Q24H IV 01/02/20 08:00 01/04/20 07:59 01/02/20 18:19 Furosemide (Lasix) 60 mg Q6HR IV 12/31/19 12:00 01/30/20 11:59 01/02/20 17:22 Insulin Aspart (NovoLOG) BEFORE MEALS AND HS SUBQ 12/23/19 11:30 03/22/20 11:29 01/02/20 18:20 Linezolid 300 ml @ 300 mls/hr Q12HR IVPB 12/31/19 21:00 01/04/20 20:59 01/02/20 20:40 Magnesium Hydroxide (Mom) 30 ml HSPRN PRN NG Constipation 12/22/19 15:15 01/21/20 15:14 01/02/20 22:20 Meropenem 1 gm/ Sodium Chloride 55 ml @ 110 mls/hr Q12HR@0400,1600 IVPB 01/02/20 16:00 01/07/20 15:59 01/02/20 17:22 Metoprolol Tartrate (Lopressor) 50 mg Q12HR NG 12/22/19 21:00 03/18/20 20:59 01/02/20 20:41 Micafungin Sodium 100 mg/Sodium Chloride 110 ml @ 110 mls/hr Q24H IVPB 12/27/19 09:00 01/05/20 08:59 01/02/20 09:42 Midazolam HCl (Versed 2mg/2ml vial) 2 mg Q1H PRN IVP For Anxiety 01/02/20 07:45 01/09/20 07:44 01/02/20 21:05 Nitroglycerin (Ntg) 0.4 mg Q5M PRN SL Prn Chest Pain 12/22/19 15:00 01/11/20 22:14 Ondansetron HCl (Zofran) 4 mg Q6H PRN IVP Nausea & Vomiting 12/22/19 15:15 01/11/20 15:14 Pantoprazole (Protonix) 40 mg EVERY 12 HOURS IVP 01/01/20 21:00 01/31/20 20:59 01/02/20 20:40 Polyethylene Glycol (Miralax) 17 gm BEDTIME NG 12/22/19 21:00 01/18/20 20:59 01/02/20 20:40 Polymyxin B Sulfate 273813 units/Dextrose 550 ml @ 550 mls/hr EVERY 12 HOURS IV 12/29/19 21:00 01/05/20 20:59 01/02/20 20:40 Quetiapine Fumarate (SEROqueL) 100 mg EVERY 8 HOURS ORAL 01/02/20 06:00 02/16/20 05:59 01/02/20 22:20 Neurological/Psychiatric: Reports: anxiety, depressed, emotional problems Allergies: Coded Allergies: ERYTHROMYCIN BASE (Verified Allergy, Severe, 12/12/19) HALOPERIDOL (Verified Allergy, Unknown, 12/12/19) VANCOMYCIN (Unverified Adverse Reaction, Intermediate, Shortness of Breath, 12/12/19) Objective Data Height (Feet): 5 Height (Inches): 6.00 Weight (Pounds): 298 General Appearance: other - sedated vent Additional Comments: confused. Mood is anxious. Affect is flat. Assessment/Plan [place] I: thorazin IM seroquel 50 q 8 hr midazolam bilat soft restraints Status: stable Status Narrative thorazin IM seroquel 50 q 8 hr midazolam bilat soft restraints Assessment/Plan: thorazin IM seroquel 50 q 8 hr midazolam bilat soft restraints Harris Ballesteros MD Jan 02, 2020 23:04
[2020-01-03] VITALS (36 sets, daily range): BP systolic 94–170; BP diastolic 32–136
--- NOTE | 2020-01-03 | NUR ---
NURSE NOTES: patient relaxed after prn versed administered with 7.5 ETT at 24cm lip on ventilator AC 20 TV 600 FiO2 40% PEEP 5. BP145/77 HR82 Afib on monitor, temp 100.5F axillary. Left upper arm running fentanyl 300mcg/hr with ecchymosis on arm from prior venipunctures. left hand #22 SL. left nare NGT running Glucerna 1.5 @10ml/hr. Lockett catheter draining yellow urine. patient repositioned and oral care provided.
--- NOTE | 2020-01-03 00:47 | Cardiology Progress Note ---
Subjective DATE OF SERVICE: Jan 02, 2020 Doing poorly - remains in ICU in critical condition with guarded prognosis. Reintubated due to kinked tube. PICC line replaced as well due to dislodgement. BP range remaining elevated frequently today Remains COVID19 positive. Monitor: AFIb Persisting respiratory acidosis req'd intubation and mech ventilation - remains far from weaning. Had coffee ground material in NGTube and hematoma on right leg; anti-coagulation discont'd Venous Duplex: negative for DVT Renal fxn and free water deficit correcting CXR (01/02/20) improving infiltrates and eff'n Objective Last 24 Hour Vital Signs Date Time Temp Pulse Resp B/P (MAP) Pulse Ox O2 Delivery O2 Flow Rate FiO2 01/03/20 00:00 Mechanical Ventilator 01/03/20 00:00 20 145/77 Mechanical Ventilator 40 01/03/20 00:00 100.5 82 20 145/77 (99) 96 01/02/20 23:25 103 153/80 01/02/20 23:00 79 20 40 01/02/20 23:00 80 19 162/81 (108) 98 01/02/20 23:00 19 162/81 Mechanical Ventilator 40 01/02/20 22:00 20 160/89 Mechanical Ventilator 40 01/02/20 22:00 84 19 176/89 (118) 99 01/02/20 21:00 91 20 158/86 (110) 100 01/02/20 21:00 40 01/02/20 21:00 20 119/104 Mechanical Ventilator 40 01/02/20 20:41 82 155/87 01/02/20 20:00 98.0 79 20 144/90 (108) 100 01/02/20 20:00 20 151/84 Mechanical Ventilator 40 01/02/20 20:00 83 01/02/20 20:00 Mechanical Ventilator 01/02/20 19:30 91 20 149/73 (98) 100 01/02/20 19:18 81 20 40 01/02/20 19:00 20 140/72 Mechanical Ventilator 45 01/02/20 19:00 97.9 103 22 140/80 (100) 96 01/02/20 18:19 20 141/75 Mechanical Ventilator 45 01/02/20 18:00 87 20 147/75 (99) 99 01/02/20 18:00 20 147/75 Mechanical Ventilator 45 01/02/20 17:23 81 141/74 01/02/20 17:00 82 20 151/85 (107) 99 01/02/20 17:00 16 151/85 Mechanical Ventilator 45 01/02/20 16:00 87 20 141/74 (96) 99 20 16:00 40 01/02/20 16:00 20 118/68 Mechanical Ventilator 45 01/02/20 16:00 Mechanical Ventilator 01/02/20 16:00 81 01/02/20 15:00 76 20 111/65 (80) 100 01/02/20 15:00 19 90/43 Mechanical Ventilator 45 01/02/20 15:00 107 21 40 01/02/20 14:00 92 16 124/61 (82) 100 01/02/20 14:00 19 124/61 Mechanical Ventilator 45 01/02/20 13:00 20 155/82 Mechanical Ventilator 45 01/02/20 13:00 81 2 155/82 (106) 100 01/02/20 12:52 88 147/74 01/02/20 12:00 Mechanical Ventilator 01/02/20 12:00 40 01/02/20 12:00 97.9 80 18 147/74 (98) 100 01/02/20 12:00 20 152/80 Mechanical Ventilator 45 01/02/20 12:00 88 01/02/20 11:30 81 20 144/72 (96) 100 01/02/20 11:23 94 20 40 01/02/20 11:00 76 20 136/61 (86) 100 01/02/20 11:00 18 122/72 Mechanical Ventilator 45 01/02/20 10:30 87 17 122/64 (83) 100 01/02/20 10:12 100 01/02/20 10:00 20 119/102 Mechanical Ventilator 45 01/02/20 10:00 104 16 102/47 (65) 98 01/02/20 09:35 20 123/90 Mechanical Ventilator 45 01/02/20 09:30 96 20 120/93 (102) 100 01/02/20 09:00 112 16 100/77 (85) 98 01/02/20 09:00 73 100/70 01/02/20 08:30 112 16 103/77 (86) 99 01/02/20 08:00 98.0 102 18 115/66 (82) 100 01/02/20 08:00 91 01/02/20 08:00 Mechanical Ventilator 01/02/20 08:00 40 01/02/20 07:00 73 18 92/56 (68) 99 01/02/20 06:55 102 21 40 01/02/20 06:14 16 123/84 Mechanical Ventilator 40 01/02/20 06:00 16 105/64 Mechanical Ventilator 40 01/02/20 06:00 90 16 105/64 (78) 100 01/02/20 05:40 16 109/61 Mechanical Ventilator 40 01/02/20 05:39 99 109/61 01/02/20 05:00 16 116/66 Mechanical Ventilator 40 01/02/20 05:00 77 16 116/66 (83) 100 01/02/20 04:30 16 97/57 Mechanical Ventilator 40 01/02/20 04:00 Mechanical Ventilator 01/02/20 04:00 99 01/02/20 04:00 15 99/64 Mechanical Ventilator 40 01/02/20 04:00 40 01/02/20 04:00 97.7 97 16 114/73 (87) 95 01/02/20 03:01 89 20 40 01/02/20 03:00 82 18 120/55 (76) 100 01/02/20 03:00 16 103/82 Mechanical Ventilator 40 01/02/20 02:00 92 10 117/61 (79) 99 01/02/20 02:00 18 117/61 Mechanical Ventilator 40 01/02/20 01:00 17 117/88 Mechanical Ventilator 40 01/02/20 01:00 72 15 93/44 (60) 99 ROS: unchanged from 12/12/19 HEENT: Orally intubated, Mechanically Ventilated, Thin secretions ET Tube, other - NGtube RHYTHM: NSR, ST LUNGS: diminished breath sounds, right-sided rhonchi CARDIAC: normal S1 and S2, irregularly irregular ABDOMEN: other - obese EXTREMITIES: moderate edema - mostly non pitting, other - hematoma right leg Laboratory Tests Test 01/02/20 04:00 01/02/20 05:43 01/02/20 09:56 01/02/20 20:46 White Blood Count 2.6 K/UL (4.8-10.8) L Red Blood Count 2.46 M/UL (4.20-5.40) L Hemoglobin 6.9 G/DL (12.0-16.0) *L Hematocrit 21.6 % (37.0-47.0) L Mean Corpuscular Volume 88 FL (80-99) Mean Corpuscular Hemoglobin 28.2 PG (27.0-31.0) Mean Corpuscular Hemoglobin Concent 32.1 G/DL (32.0-36.0) Red Cell Distribution Width 17.9 % (11.6-14.8) H Platelet Count 82 K/UL (150-450) L Mean Platelet Volume 7.5 FL (6.5-10.1) Neutrophils (%) (Auto) % (45.0-75.0) Lymphocytes (%) (Auto) % (20.0-45.0) Monocytes (%) (Auto) % (1.0-10.0) Eosinophils (%) (Auto) % (0.0-3.0) Basophils (%) (Auto) % (0.0-2.0) Differential Total Cells Counted 100 Neutrophils % (Manual) 82 % (45-75) H Lymphocytes % (Manual) 13 % (20-45) L Monocytes % (Manual) 5 % (1-10) Eosinophils % (Manual) 0 % (0-3) Basophils % (Manual) 0 % (0-2) Band Neutrophils 0 % (0-8) Platelet Estimate Decreased L Platelet Morphology Normal Anisocytosis 1+ Sodium Level 144 MMOL/L (136-145) Potassium Level 3.2 MMOL/L (3.5-5.1) L Chloride Level 103 MMOL/L (98-107) Carbon Dioxide Level 36 MMOL/L (21-32) H Anion Gap 5 mmol/L (5-15) Blood Urea Nitrogen 75 mg/dL (7-18) H Creatinine 1.4 MG/DL (0.55-1.30) H Estimat Glomerular Filtration Rate 37.5 mL/min (>60) Glucose Level 103 MG/DL (74-106) Calcium Level 8.6 MG/DL (8.5-10.1) POC Whole Blood Glucose Pending Pending Arterial Blood pH 7.502 (7.350-7.450) Arterial Blood Partial Pressure CO2 46.1 mmHg (35.0-45.0) H Arterial Blood Partial Pressure O2 93.9 mmHg (75.0-100.0) Arterial Blood HCO3 35.3 mmol/L (22.0-26.0) H Arterial Blood Oxygen Saturation 96.2 % (95-100) Arterial Blood Base Excess 11.0 (-2-2) *H [place] Test Positive Assessment/Plan Assessment/Plan CRITICAL AND GUARDED Acute respiratory failure Acute on chronic respiratory acidosis AFiB with labile heart rates CHF, ac/chr diast - compensated BLE edema Sepsis with shock obesity COPD with bronchospasm Acute renal failure - worsening Pleural effusion GI bleeding Anemia - multifactorial Acute diastolic CHF Covid 19 PNA Hypokalemia Dehydration/hypernatremia Hypertension/HHD with labile BP Vent support Monitor acid/base parameters. Advance anti-HTN regimen. Transfuse PRBC's. Antimicrobials Titrate rate-control meds - hold digitalis for elevated levels. Maintain diltiazem and metoprolol. DC apixaban - hold anticoagulation due to GI bleeding; resume with GI clearance. Continued residential monitor Diuresis based on clinical parameters; trend BNP May need trach Potassium and free water suppl as needed Possible thorocentesis per pulmonary Agree with consideration for DNR Jerome Meek MD Jan 03, 2020 00:47
--- NOTE | 2020-01-03 02:00 | NUR ---
NURSE NOTES: patient alert and calm with 7.5 ETT at 24cm lip on ventilator AC 20 TV 600 FiO2 40% PEEP 5. BP122/67 HR91 Afib on monitor. Left upper arm running fentanyl 300mcg/hr. left hand #22 SL. left nare NGT running Glucerna 1.5 @10ml/hr. Lockett catheter draining yellow urine. patient repositioned and oral care provided.
[2020-01-03] MEDS: Midazolam 2mg/2ml Inj IVP PRN ×7 (02:13→23:54)
[2020-01-03] MEDS: fentaNYL 2500mcg/NS 250ml 250 ML IV SCH ×2 (02:48→17:19)
[2020-01-03] MEDS: Meropenem 1gm/NS 55ml IVPB SCH ×4 (03:08→16:07)
--- NOTE | 2020-01-03 04:00 | NUR ---
NURSE NOTES: patient anxious, PRN thorazine and versed administered with 7.5 ETT at 24cm lip on ventilator AC 20 TV 600 FiO2 40% PEEP 5. BP147/114 HR139 Afib on monitor and afebrile. Left upper arm running fentanyl 300mcg/hr. left hand #22 SL. left nare NGT running Glucerna 1.5 @10ml/hr. Lockett catheter draining yellow urine. patient repositioned and oral care provided.
--- NOTE | 2020-01-03 04:30 | NUR ---
NURSE NOTES: Patient restless noted with legs shifting in bed with Fentanyl at 300mcg/hr, BP 150/81 RR21 HR 94, unable to attempt sedation vacation. Patient had loose bowel movement x2. rectal tube inserted, no leaking at this time.
[2020-01-03] MEDS: dilTIAZem HCl 90mg tab NG SCH ×4 (05:34→23:54)
[2020-01-03 05:45] LABS: HEMATOCRIT 26.3 % (37.0-47.0); HEMOGLOBIN 8.4 G/DL (12.0-16.0); MEAN CORPUSCULAR VOLUME 88 FL (80-99); PLATELET COUNT 94 K/UL (150-450); RED BLOOD COUNT 2.98 M/UL (4.20-5.40); RED CELL DISTRIBUTION WIDTH 18.3 % (11.6-14.8); WHITE BLOOD COUNT 2.9 K/UL (4.8-10.8)
[2020-01-03] MEDS: NovoLOG Insulin Flexpen SUBQ SCH ×4 (05:49→21:00)
--- NOTE | 2020-01-03 06:00 | NUR ---
NURSE NOTES: patient relaxed after PRN versed administered with 7.5 ETT at 24cm lip on ventilator AC 20 TV 600 FiO2 40% PEEP 5. BP127/78 HR79 Afib on monitor. Left upper arm running fentanyl 300mcg/hr. left hand #22 SL. left nare NGT running Glucerna 1.5 @10ml/hr. Lockett catheter draining yellow urine. right knee hematoma, with dry open blisters, left knee ecchymosis, sacral DTPI, breast and abdominal skin fold redness noted. patient repositioned and oral care provided.
[2020-01-03 06:16] LABS: ALBUMIN 2.1 G/DL (3.4-5.0); ALBUMIN/GLOBULIN RATIO 0.5 (1.0-2.7); CALCIUM 8.8 MG/DL (8.5-10.1); CREATININE 1.6 MG/DL (0.55-1.30); POTASSIUM 5.1 MMOL/L (3.5-5.1)
[2020-01-03 06:21] LABS: BILIRUBIN,DIRECT 0.9 MG/DL (0.0-0.3)
--- NOTE | 2020-01-03 07:22 | NUR ---
NURSE HAND-OFF REPORT: Latest Vital Signs: Temperature 97.7 , Pulse 74 , B/P 135 /77 , Respiratory Rate 20 , O2 SAT 96 , Mechanical Ventilator, O2 Flow Rate . Vital Sign Comment: WNL EKG Rhythm: Atrial Fibrillation Rhythm change?: N Notified?: Elizabeth Meek MD Response: Latest Abreu Fall Score: 75 Fall Risk: High Risk Safety Measures: Call light Within Reach, Bed Alarm Zone 2, Side Rails Side Rails x3, Bed position Low and Locked. Fall Precautions: Yellow Socks Report given to NOEL Cano. endorsed unable to initiate sedation vacation.
--- NOTE | 2020-01-03 08:15 | NUR ---
NURSE NOTES: patient report received from NOEL Palumbo. she is sedated on fentanyl at 300mcg/hr to reach rass scale of -2, she is sedated and reacts to light stimuli and tactile stimulus, she is in mechanical ventilator with setting of AC 20, TV: 600, fio2 of 40% and peep of 5, patient has a NG-tube receiving Glucerna 1.5 at 20ml/hr. rectal tube is draining liquid stool, trivedi remains draining clear straw urine. will continue to follow physician plan of care.
[2020-01-03] MEDS: Pantoprazole Inj IVP SCH ×2 (09:00→19:50)
[2020-01-03] MEDS: Metoprolol Tartrate 50mg tab NG SCH ×2 (09:00→19:50)
[2020-01-03] MEDS: Enoxaparin 60mg Inj SUBQ SCH (09:00)
[2020-01-03] MEDS: Docusate 100mg/10ml Liq NG SCH ×2 (09:13→18:00)
[2020-01-03] MEDS: Polymyxin B Sulfate 500,000 UNITS in D5W 500ml 550 ML IV SCH ×2 (09:14→19:52)
[2020-01-03] MEDS: Bacitracin Oint 15gm Tube TOPIC SCH ×2 (09:16→17:18)
--- NOTE | 2020-01-03 09:55 | NUR ---
NURSE NOTES: Dr. Dumont updated of patient weaning trial started at 928, she is on CPAP with PS of 8 on fio2 of 40% and peep of 5, heart rate is noted to be at 108 in a-fibb with saturations of 94-96% and RR of 15. she remains on fentanyl drip during weaning trial to reduce anxiety, will continue to monitor.
--- NOTE | 2020-01-03 10:01 | General Progress Note ---
Subjective ROS Limited/Unobtainable: Yes Allergies: Coded Allergies: ERYTHROMYCIN BASE (Verified Allergy, Severe, 12/12/19) HALOPERIDOL (Verified Allergy, Unknown, 12/12/19) VANCOMYCIN (Unverified Adverse Reaction, Intermediate, Shortness of Breath, 12/12/19) Objective Last 24 Hour Vital Signs Date Time Temp Pulse Resp B/P (MAP) Pulse Ox O2 Delivery O2 Flow Rate FiO2 01/03/20 09:29 106 22 40 40 01/03/20 09:00 126 15 137/74 (95) 97 01/03/20 09:00 68 104/59 01/03/20 08:00 40 01/03/20 08:00 129 01/03/20 08:00 98.8 101 20 110/89 (96) 01/03/20 07:40 90 20 100 Mechanical Ventilator 40 01/03/20 07:30 106 18 131/79 (96) 71 01/03/20 07:28 116 20 40 01/03/20 07:00 74 20 135/77 (96) 96 01/03/20 07:00 20 135/77 Mechanical Ventilator 40 01/03/20 06:00 79 20 127/78 (94) 98 01/03/20 06:00 20 127/78 Mechanical Ventilator 40 01/03/20 05:34 112 129/74 01/03/20 05:00 19 145/78 Mechanical Ventilator 40 01/03/20 05:00 89 19 122/67 (85) 93 01/03/20 04:00 40 01/03/20 04:00 97.7 95 20 140/79 (99) 96 01/03/20 04:00 20 147/114 Mechanical Ventilator 40 01/03/20 04:00 Mechanical Ventilator 01/03/20 04:00 118 01/03/20 03:11 92 20 40 01/03/20 03:00 16 126/115 Mechanical Ventilator 40 01/03/20 03:00 99 16 126/115 (119) 97 01/03/20 02:48 20 124/68 Mechanical Ventilator 40 01/03/20 02:00 16 124/65 Mechanical Ventilator 40 01/03/20 02:00 95 15 124/65 (84) 97 01/03/20 01:00 71 20 122/67 (85) 98 01/03/20 01:00 20 122/67 Mechanical Ventilator 40 01/03/20 00:00 83 01/03/20 00:00 Mechanical Ventilator 01/03/20 00:00 20 145/77 Mechanical Ventilator 40 01/03/20 00:00 100.5 82 20 145/77 (99) 96 01/02/20 23:25 103 153/80 01/02/20 23:00 79 20 40 01/02/20 23:00 80 19 162/81 (108) 98 01/02/20 23:00 19 162/81 Mechanical Ventilator 40 01/02/20 22:00 20 160/89 Mechanical Ventilator 40 01/02/20 22:00 84 19 176/89 (118) 99 01/02/20 21:00 91 20 158/86 (110) 100 01/02/20 21:00 40 01/02/20 21:00 20 119/104 Mechanical Ventilator 40 01/02/20 20:41 82 155/87 01/02/20 20:00 98.0 79 20 144/90 (108) 100 01/02/20 20:00 20 151/84 Mechanical Ventilator 40 01/02/20 20:00 83 01/02/20 20:00 Mechanical Ventilator 01/02/20 19:30 91 20 149/73 (98) 100 01/02/20 19:18 81 20 40 01/02/20 19:00 20 140/72 Mechanical Ventilator 45 01/02/20 19:00 97.9 103 22 140/80 (100) 96 01/02/20 18:19 20 141/75 Mechanical Ventilator 45 01/02/20 18:00 87 20 147/75 (99) 99 01/02/20 18:00 20 147/75 Mechanical Ventilator 45 01/02/20 17:23 81 141/74 01/02/20 17:00 82 20 151/85 (107) 99 01/02/20 17:00 16 151/85 Mechanical Ventilator 45 01/02/20 16:00 87 20 141/74 (96) 99 01/02/20 16:00 40 01/02/20 16:00 20 118/68 Mechanical Ventilator 45 01/02/20 16:00 Mechanical Ventilator 01/02/20 16:00 81 01/02/20 15:00 76 20 111/65 (80) 100 01/02/20 15:00 19 90/43 Mechanical Ventilator 45 9/23/20 15:00 107 21 40 01/02/20 14:00 92 16 124/61 (82) 100 01/02/20 14:00 19 124/61 Mechanical Ventilator 45 01/02/20 13:00 20 155/82 Mechanical Ventilator 45 01/02/20 13:00 81 2 155/82 (106) 100 01/02/20 12:52 88 147/74 01/02/20 12:00 Mechanical Ventilator 01/02/20 12:00 40 01/02/20 12:00 97.9 80 18 147/74 (98) 100 01/02/20 12:00 20 152/80 Mechanical Ventilator 45 01/02/20 12:00 88 01/02/20 11:30 81 20 144/72 (96) 100 01/02/20 11:23 94 20 40 01/02/20 11:00 76 20 136/61 (86) 100 01/02/20 11:00 18 122/72 Mechanical Ventilator 45 01/02/20 10:30 87 17 122/64 (83) 100 01/02/20 10:12 100 01/02/20 10:00 20 119/102 Mechanical Ventilator 45 01/02/20 10:00 104 16 102/47 (65) 98 Intake and Output 01/02/20 01/03/20 19:00 07:00 Intake Total 1780 ml 1441 ml Output Total 790 ml 1025 ml Balance 990 ml 416 ml Free Water 60 ml 50 ml IV Total 1340 ml 1241 ml Tube Feeding 380 ml 150 ml Output Urine Total 790 ml 1025 ml # Bowel Movements 3 Laboratory Tests 01/02/20 20:46: POC Whole Blood Glucose [Pending] 01/03/20 04:30: White Blood Count 2.9L, Red Blood Count 2.98L, Hemoglobin 8.4L, Hematocrit 26.3L , Mean Corpuscular Volume 88, Mean Corpuscular Hemoglobin 28.3, Mean Corpuscular Hemoglobin Concent 32.1, Red Cell Distribution Width 18.3H, Platelet Count 94L, Mean Platelet Volume 7.1, Neutrophils (%) (Auto) , Lymphocytes (%) (Auto) , Monocytes (%) (Auto) , Eosinophils (%) (Auto) , Basophils (%) (Auto) , Differential Total Cells Counted 100, Neutrophils % (Manual) 84H, Lymphocytes % (Manual) 13L, Monocytes % (Manual) 3, Eosinophils % (Manual) 0, Basophils % (Manual) 0, Band Neutrophils 0, Platelet Estimate DecreasedL, Platelet Mor phology Normal, Anisocytosis 1+, Stool Occult Blood Negative, Sodium Level 144, Potassium Level 5.1#, Chloride Level 104, Carbon Dioxide Level 37H, Anion Gap 3L , Blood Urea Nitrogen 70H, Creatinine 1.6H, Estimat Glomerular Filtration Rate 32.1, Glucose Level 125H, Calcium Level 8.8, Total Bilirubin 2.0H, Direct Bilirubin 0.9H, Aspartate Amino Transf (AST/SGOT) 23, Alanine Aminotransferase (ALT/SGPT) 24, Alkaline Phosphatase 80, Total Protein 6.1L, Albumin 2.1L, Globulin 4.0, Albumin/Globulin Ratio 0.5L 01/03/20 05:46: POC Whole Blood Glucose 117H 01/03/20 07:17: Arterial Blood pH 7.575*H, Arterial Blood Partial Pressure CO2 36.6, Arterial Blood Partial Pressure O2 60.8L, Arterial Blood HCO3 33.2H, Arterial Blood Oxygen Saturation 90.6L, Arterial Blood Base Excess 10.5*H, Eugene Test Positive Height (Feet): 5 Height (Inches): 6.00 Weight (Pounds): 298 General Appearance: no apparent distress, lethargic EENT: other - intubated seddated Cardiovascular: regularly irregular Respiratory/Chest: rhonchi - bilaterally Abdomen: soft Edema: moderate edema Neurologic: unresponsive Skin: other - eschar and some cellulitis rle Assessment/Plan Problem List: (1) Schizophrenia ICD Codes: F20.9 - Schizophrenia, unspecified SNOMED: 38666234 (2) GERD (gastroesophageal reflux disease) ICD Codes: K21.9 - Gastro-esophageal reflux disease without esophagitis SNOMED: 197686713 (3) Lymphadema (4) Smoker ICD Codes: F17.200 - Nicotine dependence, unspecified, uncomplicated SNOMED: 74997002 (5) Atrial fibrillation with rapid ventricular response ICD Codes: I48.91 - Unspecified atrial fibrillation SNOMED: 448406737138155 (6) CKD (chronic kidney disease) stage 3, GFR 30-59 ml/min ICD Codes: N18.3 - Chronic kidney disease, stage 3 (moderate) SNOMED: 818388205 (7) NATALIE (acute kidney injury) ICD Codes: N17.9 - Acute kidney failure, unspecified SNOMED: 5757697, 45024351 (8) COPD (chronic obstructive pulmonary disease) ICD Codes: J44.9 - Chronic obstructive pulmonary disease, unspecified SNOMED: 09858443 (9) UGI bleed ICD Codes: K92.2 - Gastrointestinal hemorrhage, unspecified SNOMED: 97598598 (10) Dysphagia ICD Codes: R13.10 - Dysphagia, unspecified SNOMED: 85365953, 625082414 (11) UTI (urinary tract infection) ICD Codes: N39.0 - Urinary tract infection, site not specified SNOMED: 49214207 (12) ESBL (extended spectrum beta-lactamase) producing bacteria infection ICD Codes: A49.9 - Bacterial infection, unspecified; Z16.12 - Extended spectrum beta lactamase (ESBL) resistance SNOMED: 541673893 (13) Dehydration ICD Codes: E86.0 - Dehydration SNOMED: 90807026 (14) CHF exacerbation ICD Codes: I50.9 - Heart failure, unspecified SNOMED: 472257059, 55511568102118 (15) Acute respiratory failure ICD Codes: J96.00 - Acute respiratory failure, unspecified whether with hypoxia or hypercapnia SNOMED: 78666787 (16) COVID-19 ICD Codes: U07.1 - COVID-19 SNOMED: 775968915 (17) Pneumonia ICD Codes: J18.9 - Pneumonia, unspecified organism SNOMED: 884233005 Qualifiers: (18) Hematoma of lower leg ICD Codes: S80.10XA - Contusion of unspecified lower leg, initial encounter SNOMED: 230260739 (19) CKD (chronic kidney disease) stage 3, GFR 30-59 ml/min ICD Codes: N18.3 - Chronic kidney disease, stage 3 (moderate) SNOMED: 842397903 Status: stable Assessment/Plan: resp distress, icu, now intubated, natalie on ckd,,now stable, I/O, ,+hematoma RLE stop eliquis ancd asa, lovenox now iv protonix, rx esbl and + vre uti,g+ cocci linezolid , remains high risk, d/w psych, ID, cardiology, chf and on lasix ,covid neg prior now +, grave prognosis, fungemia on micafungin likely will be unable to wean for a long time, agitated when tried to wean and had apnea 01/01, cpap trial 01/02 and so far adequately sedated and no distress, ,all lab and orders reviewed , metabolic alkalosis and diamox added, no active bleeding , icu time 40 min Benjamin Dumont MD Jan 03, 2020 10:01
--- NOTE | 2020-01-03 11:16 | Pulmonolgy Critical Care Note ---
Luz Bowen GLASS LAMINATING OPERATOR 01/03/20 1116: Critical Care - Asmt/Plan Assessment/Plan: ASSESSMENT acute hypoxemic hypercapnic resp failure, requiring intubation 12/22 failure to wean COVID 19 PNA sepsis fungemia UTI with E coli ESBL UTI VRE possible aspiration PNA Moderate R pleural effusion COPD Bronchospasm Atrial fibrillation with rapid ventricular response Congestive heart failure Acute renal failure on CKD Severe anemia Probable GI bleeding Thrombocytopenia Status post ground fall Tobacco dependency Morbid obesity probably GARY Homeless R knee edema and hematoma, likely sprain /strain post fall PLAN OF CARE ICU intubated 12/22 last ABG stable, keep settings as is and titrate Fio2 to keep sat above 90% MDI Albuterol in line with vent fup with CXR and ABG thoracentesis pending started on weaning trials with high PS settings as ordered, goal MV 10 continue as tolerated, intermittent tachy 130-140 steroids IV ( started 12/23) continue for total of 10 days till 01/02-> dc today Remdesivir (started 12/24 ), dc 12/30 initial diagnoses with COVID 19 at [facility] 11/29, was not hypoxic and not intubated, was not treated with Remdesivivr , only received empiric abx for PNA sedation with Fentanyl gtt and versed prn - DVT prophylaxis with Lovenox prior Venous Duplex BLE -NGT COVID 19 by PCR 12/22 positive isolation IL 6 52 , initial CRP 15.6, ferritin 769, fup with inflammatory markers CRP 12/29 - down to 11.8 ; ferritin down to 503 check CRP in am on diuresis with Lasix , monitor volumes closely creat remains stable rate control- per cardio recs: monitor volumes pro BNP trending down ECHO with pEF no evidence of WMA GI prophylaxis with PPI s/p Venofer x 2 s/p blood transfusion 12/25 monitor HH with goal to keep Hgb >7 s/p 1 u PRBC 01/01 - HH up 8.4/26.3 01/02 GI procedure when stable monitor PLT counts renal US no hydro, BL nonobstructive stones s/p IV hydration, now resumed again per nephro monitor renal parameters, lytes , e/lyte management as per nephro recs creat stable UCX 12/11 + E coli ESBL, BCX 12/16 1/2 + yeast, fup with yeast ID, ? source BCX 12/17 NGTD BCX 12/22 and 12/24 NGTD UCX 12/16 VRE SCX 12/19 MRSA, ACB MDR now on meropenem , micafungin , Polymyxin , Zyvox as per ID recs; cooling blanket prn fevers prior X ray R knee given fall 12/15 , large hematoma, swelling-no fx or dislocation ice R knee and elevate CT head no acute IC pathology fall precautions prior declined Nicotine patch discussion on weight loss if receptive - not at this time; anxious and wants to go home pain management anxiolytic prn SW consult for placement evaluated by bioethics -> DNR/DNI status appropriate given current critical condition , grave prognosis and multiple comorbidities, would recommend DNR/DNI status as well now DNR/DNI status case discussed and evaluated by supervising physician ivy mccarty for a consult! Critical Care - Objective Last 24 Hour Vital Signs Date Time Temp Pulse Resp B/P (MAP) Pulse Ox O2 Delivery O2 Flow Rate FiO2 01/03/20 10:30 104 11 117/32 (60) 01/03/20 10:00 15 128/69 Mechanical Ventilator 40 01/03/20 10:00 119 17 128/69 (88) 98 01/03/20 09:30 113 16 108/80 (89) 01/03/20 09:29 106 22 40 40 01/03/20 09:00 126 15 137/74 (95) 97 01/03/20 09:00 20 137/74 40 01/03/20 09:00 68 104/59 01/03/20 08:30 102 16 108/79 (89) 01/03/20 08:00 40 01/03/20 08:00 129 01/03/20 08:00 Mechanical Ventilator 01/03/20 08:00 20 110/89 Mechanical Ventilator 40 01/03/20 08:00 98.8 101 20 110/89 (96) 01/03/20 07:40 90 20 100 Mechanical Ventilator 40 01/03/20 07:30 106 18 131/79 (96) 71 01/03/20 07:28 116 20 40 01/03/20 07:00 74 20 135/77 (96) 96 01/03/20 07:00 20 135/77 Mechanical Ventilator 40 01/03/20 06:00 79 20 127/78 (94) 98 01/03/20 06:00 20 127/78 Mechanical Ventilator 40 01/03/20 05:34 112 129/74 01/03/20 05:00 19 145/78 Mechanical Ventilator 40 01/03/20 05:00 89 19 122/67 (85) 93 01/03/20 04:00 40 01/03/20 04:00 97.7 95 20 140/79 (99) 96 01/03/20 04:00 20 147/114 Mechanical Ventilator 40 01/03/20 04:00 Mechanical Ventilator 01/03/20 04:00 118 01/03/20 03:11 92 20 40 01/03/20 03:00 16 126/115 Mechanical Ventilator 40 01/03/20 03:00 99 16 126/115 (119) 97 01/03/20 02:48 20 124/68 Mechanical Ventilator 40 01/03/20 02:00 16 124/65 Mechanical Ventilator 40 01/03/20 02:00 95 15 124/65 (84) 97 01/03/20 01:00 71 20 122/67 (85) 98 01/03/20 01:00 20 122/67 Mechanical Ventilator 40 01/03/20 00:00 83 01/03/20 00:00 Mechanical Ventilator 01/03/20 00:00 20 145/77 Mechanical Ventilator 40 01/03/20 00:00 100.5 82 20 145/77 (99) 96 01/02/20 23:25 103 153/80 01/02/20 23:00 79 20 40 01/02/20 23:00 80 19 162/81 (108) 98 01/02/20 23:00 19 162/81 Mechanical Ventilator 40 01/02/20 22:00 20 160/89 Mechanical Ventilator 40 01/02/20 22:00 84 19 176/89 (118) 99 01/02/20 21:00 91 20 158/86 (110) 100 01/02/20 21:00 40 01/02/20 21:00 20 119/104 Mechanical Ventilator 40 01/02/20 20:41 82 155/87 01/02/20 20:00 98.0 79 20 144/90 (108) 100 01/02/20 20:00 20 151/84 Mechanical Ventilator 40 01/02/20 20:00 83 01/02/20 20:00 Mechanical Ventilator 01/02/20 19:30 91 20 149/73 (98) 100 01/02/20 19:18 81 20 40 01/02/20 19:00 20 140/72 Mechanical Ventilator 45 01/02/20 19:00 97.9 103 22 140/80 (100) 96 01/02/20 18:19 20 141/75 Mechanical Ventilator 45 01/02/20 18:00 87 20 147/75 (99) 99 01/02/20 18:00 20 147/75 Mechanical Ventilator 45 01/02/20 17:23 81 141/74 01/02/20 17:00 82 20 151/85 (107) 99 01/02/20 17:00 16 151/85 Mechanical Ventilator 45 01/02/20 16:00 87 20 141/74 (96) 99 01/02/20 16:00 40 01/02/20 16:00 20 118/68 Mechanical Ventilator 45 01/02/20 16:00 Mechanical Ventilator 01/02/20 16:00 81 01/02/20 15:00 76 20 111/65 (80) 100 01/02/20 15:00 19 90/43 Mechanical Ventilator 45 01/02/20 15:00 107 21 40 01/02/20 14:00 92 16 124/61 (82) 100 01/02/20 14:00 19 124/61 Mechanical Ventilator 45 01/02/20 13:00 20 155/82 Mechanical Ventilator 45 01/02/20 13:00 81 2 155/82 (106) 100 01/02/20 12:52 88 147/74 01/02/20 12:00 Mechanical Ventilator 01/02/20 12:00 40 01/02/20 12:00 97.9 80 18 147/74 (98) 100 01/02/20 12:00 20 152/80 Mechanical Ventilator 45 01/02/20 12:00 88 01/02/20 11:30 81 20 144/72 (96) 100 01/02/20 11:23 94 20 40 Objective: CONDITION: critical General Appearance: morbidly obese , sedated, on vent AC 600-20-40% PEEP 5 Lines, tubes and drains: LUE PICC new , intact HEENT: normocephalic, atraumatic, anicteric, NGT in , OP with ET Neck: non-tender Respiratory/Chest: chest wall non-tender, no accessory muscle use, scattered rhonchi Cardiovascular/Chest: irregularly irregular - A fib , tachy at times , distant heart sounds, Abdomen: normal bowel sounds, non tender , obese, soft : [place] Extremities: no calf tenderness, moderate edema - +3 BLE, R knee with large hematoma, edema, Skin Exam: warm/dry, multiple tattoos Neurologic: sedated Musculoskeletal: normal muscle bulk Accucheck: 117 Critical Care - Subjective ROS Limited/Unobtainable: Yes Interval Events: currently on weaning protocol with PS 8 tachycardic intermittently 130-140 currently afebrile, fever at midnight remains leukopenic CXR 01/01 noted ABG this am noted s/p 1 u PRBC 01/01; HH up to 8.4/26.3 correspondingly remains on Fentanyl gtt creat 1.6 Condition: critical IV Access: PICC - LUE intact EKG Rhythm: Atrial Fibrillation FI02: 40 Vent Support Breath Rate: 20 Vent Support Mode: CPAP Vent Tidal Volume: 600 Sputum Amount: Small - small amount, yellow color, thick consistency PEEP: 5.0 PIP: 14 Drips: Fentanyl gtt 300 mcg/hr Tube Feeding Amount: 20 I&O: Intake and Output 01/02/20 01/03/20 19:00 07:00 Intake Total 1780 ml 1441 ml Output Total 790 ml 1025 ml Balance 990 ml 416 ml Free Water 60 ml 50 ml IV Total 1340 ml 1241 ml Tube Feeding 380 ml 150 ml Output Urine Total 790 ml 1025 ml # Bowel Movements 3 CXR: 01/01 Single slightly improved bilateral interstitial and airspace edema. Evidence of decreased right pleural effusion. ET-Tube: 7.5 ET Position: 24 Igor Carpio MD 01/03/20 1144: Critical Care - Asmt/Plan Assessment/Plan: Wilfrid SBT PS 8 Will check ABG If gas exchange adequate can consider extubation to BiPAP However, would need to determine post-extubation plan, ? DNI Currently arousable on Fent gtt, will decrease in anticipation of possible extubation D/W Dr. Kahn as well, thora would not be safe Diurese, diamox per renal Abx + WANDER LMWH Hold TF's DNAR CCT 60 Luz Bowen GLASS LAMINATING OPERATOR Jan 03, 2020 11:16 Igor Carpio MD Jan 03, 2020 11:44
[2020-01-03] MEDS: Micafungin 100 MG in NS 110 ML IVPB SCH (11:23)
--- NOTE | 2020-01-03 11:49 | NUR ---
NURSE NOTES: Dr. Carpio ordered to habe fentanyl drip placed on hold while weaning, also ordered to have and abg done stat, hold feeding andf call with in 30min.
--- NOTE | 2020-01-03 12:00 | NUR ---
RESPIRATORY NOTE: Pt placed on CPAP PS 8 @ 0929. Pt is sedated on Fentanyl drip and is currently satting 94-96% on 40% FiO2. HR 108 in a-fibb. Spontaneous VT 300-500. NIF -21. RSBI 50. Spontaneous RR 10-15. Pt tolerating well. No s/s of distress noted. ABG drawn. Jerome COHEN at bedside. Will continue to monitor. Addendum: 01/03/20 at 1421 by Kori Barber RT Correction- Fentanyl drip is currently on hold since 8050.
--- NOTE | 2020-01-03 12:20 | NUR ---
NURSE NOTES: Dr Carpio called regarding ABG results, ordered to have another abg done in one hour, patient remains weaning on cpap with ps of 8, fentanyl drip remains held.
--- NOTE | 2020-01-03 13:55 | NUR ---
NURSE NOTES: Dr. Carpio called regarding abg results, awaiting call back for orders.
[2020-01-03] MEDS ORDERED: Tubing IV Secondary IV ONE ×2 (14:20→14:35)
[2020-01-03] MEDS ORDERED: NS 275ml ONE ×2 (14:20→14:35)
--- NOTE | 2020-01-03 14:28 | General Progress Note ---
Subjective ROS Limited/Unobtainable: No Allergies: Coded Allergies: ERYTHROMYCIN BASE (Verified Allergy, Severe, 12/12/19) HALOPERIDOL (Verified Allergy, Unknown, 12/12/19) VANCOMYCIN (Unverified Adverse Reaction, Intermediate, Shortness of Breath, 12/12/19) Objective Last 24 Hour Vital Signs Date Time Temp Pulse Resp B/P (MAP) Pulse Ox O2 Delivery O2 Flow Rate FiO2 01/03/20 14:00 79 10 120/68 (85) 95 01/03/20 13:30 84 10 109/63 (78) 01/03/20 13:00 75 18 98/54 (69) 90 01/03/20 12:30 114 18 120/68 (85) 01/03/20 12:00 126 01/03/20 12:00 40 01/03/20 12:00 Mechanical Ventilator 01/03/20 12:00 97.6 126 13 170/136 (147) 01/03/20 11:30 111 9 131/73 (92) 01/03/20 11:22 96 119/72 01/03/20 11:09 101 10 40 01/03/20 11:00 105 11 124/64 (84) 01/03/20 10:30 104 11 117/32 (60) 01/03/20 10:00 15 128/69 Mechanical Ventilator 40 01/03/20 10:00 119 17 128/69 (88) 98 01/03/20 09:30 113 16 108/80 (89) 01/03/20 09:29 106 22 40 40 01/03/20 09:00 126 15 137/74 (95) 97 01/03/20 09:00 20 137/74 40 01/03/20 09:00 68 104/59 01/03/20 08:30 102 16 108/79 (89) 01/03/20 08:00 40 01/03/20 08:00 129 01/03/20 08:00 Mechanical Ventilator 01/03/20 08:00 20 110/89 Mechanical Ventilator 40 01/03/20 08:00 98.8 101 20 110/89 (96) 01/03/20 07:40 90 20 100 Mechanical Ventilator 40 01/03/20 07:30 106 18 131/79 (96) 71 01/03/20 07:28 116 20 40 01/03/20 07:00 74 20 135/77 (96) 96 01/03/20 07:00 20 135/77 Mechanical Ventilator 40 01/03/20 06:00 79 20 127/78 (94) 98 01/03/20 06:00 20 127/78 Mechanical Ventilator 40 01/03/20 05:34 112 129/74 01/03/20 05:00 19 145/78 Mechanical Ventilator 40 01/03/20 05:00 89 19 122/67 (85) 93 01/03/20 04:00 40 01/03/20 04:00 97.7 95 20 140/79 (99) 96 01/03/20 04:00 20 147/114 Mechanical Ventilator 40 01/03/20 04:00 Mechanical Ventilator 01/03/20 04:00 118 01/03/20 03:11 92 20 40 01/03/20 03:00 16 126/115 Mechanical Ventilator 40 01/03/20 03:00 99 16 126/115 (119) 97 01/03/20 02:48 20 124/68 Mechanical Ventilator 40 01/03/20 02:00 16 124/65 Mechanical Ventilator 40 01/03/20 02:00 95 15 124/65 (84) 97 01/03/20 01:00 71 20 122/67 (85) 98 01/03/20 01:00 20 122/67 Mechanical Ventilator 40 01/03/20 00:00 83 01/03/20 00:00 Mechanical Ventilator 01/03/20 00:00 20 145/77 Mechanical Ventilator 40 01/03/20 00:00 100.5 82 20 145/77 (99) 96 01/02/20 23:25 103 153/80 01/02/20 23:00 79 20 40 01/02/20 23:00 80 19 162/81 (108) 98 01/02/20 23:00 19 162/81 Mechanical Ventilator 40 01/02/20 22:00 20 160/89 Mechanical Ventilator 40 01/02/20 22:00 84 19 176/89 (118) 99 01/02/20 21:00 91 20 158/86 (110) 100 01/02/20 21:00 40 01/02/20 21:00 20 119/104 Mechanical Ventilator 40 01/02/20 20:41 82 155/87 01/02/20 20:00 98.0 79 20 144/90 (108) 100 01/02/20 20:00 20 151/84 Mechanical Ventilator 40 01/02/20 20:00 83 01/02/20 20:00 Mechanical Ventilator 01/02/20 19:30 91 20 149/73 (98) 100 01/02/20 19:18 81 20 40 01/02/20 19:00 20 140/72 Mechanical Ventilator 45 01/02/20 19:00 97.9 103 22 140/80 (100) 96 01/02/20 18:19 20 141/75 Mechanical Ventilator 45 01/02/20 18:00 87 20 147/75 (99) 99 01/02/20 18:00 20 147/75 Mechanical Ventilator 45 01/02/20 17:23 81 141/74 01/02/20 17:00 82 20 151/85 (107) 99 01/02/20 17:00 16 151/85 Mechanical Ventilator 45 01/02/20 16:00 87 20 141/74 (96) 99 01/02/20 16:00 40 01/02/20 16:00 20 118/68 Mechanical Ventilator 45 01/02/20 16:00 Mechanical Ventilator 01/02/20 16:00 81 01/02/20 15:00 76 20 111/65 (80) 100 01/02/20 15:00 19 90/43 Mechanical Ventilator 45 01/02/20 15:00 107 21 40 Intake and Output 0 01/02/20 01/03/20 19:00 07:00 Intake Total 1780 ml 1441 ml Output Total 790 ml 1025 ml Balance 990 ml 416 ml Free Water 60 ml 50 ml IV Total 1340 ml 1241 ml Tube Feeding 380 ml 150 ml Output Urine Total 790 ml 1025 ml # Bowel Movements 3 Laboratory Tests 01/02/20 20:46: POC Whole Blood Glucose [Pending] 01/03/20 04:30: White Blood Count 2.9L, Red Blood Count 2.98L, Hemoglobin 8.4L, Hematocrit 26.3L , Mean Corpuscular Volume 88, Mean Corpuscular Hemoglobin 28.3, Mean Corpuscular Hemoglobin Concent 32.1, Red Cell Distribution Width 18.3H, Platelet Count 94L, Mean Platelet Volume 7.1, Neutrophils (%) (Auto) , Lymphocytes (%) (Auto) , Monocytes (%) (Auto) , Eosinophils (%) (Auto) , Basophils (%) (Auto) , D ifferential Total Cells Counted 100, Neutrophils % (Manual) 84H, Lymphocytes % (Manual) 13L, Monocytes % (Manual) 3, Eosinophils % (Manual) 0, Basophils % (Manual) 0, Band Neutrophils 0, Platelet Estimate DecreasedL, Platelet Morphology Normal, Anisocytosis 1+, Stool Occult Blood Negative, Sodium Level 144, Potassium Level 5.1#, Chloride Level 104, Carbon Dioxide Level 37H, Anion Gap 3L, Blood Urea Nitrogen 70H, Creatinine 1.6H, Estimat Glomerular Filtration Rate 32.1, Glucose Level 125H, Calcium Level 8.8, Total Bilirubin 2.0H, Direct Bilirubin 0.9H, Aspartate Amino Transf (AST/SGOT) 23, Alanine Aminotransferase (ALT/SGPT) 24, Alkaline Phosphatase 80, Total Protein 6.1L, Albumin 2.1L, Globulin 4.0, Albumin/Globulin Ratio 0.5L 01/03/20 05:46: POC Whole Blood Glucose 117H 01/03/20 07:17: Arterial Blood pH 7.575*H, Arterial Blood Partial Pressure CO2 36.6, Arterial Blood Partial Pressure O2 60.8L, Arterial Blood HCO3 33.2H, Arterial Blood Oxyg en Saturation 90.6L, Arterial Blood Base Excess 10.5*H, Eugene Test Positive 01/03/20 11:55: Arterial Blood pH 7.345L, Arterial Blood Partial Pressure CO2 66.9*H, Arterial Blood Partial Pressure O2 96.9, Arterial Blood HCO3 35.7H, Arterial Blood Oxygen Saturation 95.4, Arterial Blood Base Excess 8.5H, Eugene Test Positive 01/03/20 13:20: Arterial Blood pH 7.340L, Arterial Blood Partial Pressure CO2 64.4*H, Arterial Blood Partial Pressure O2 89.1, Arterial Blood HCO3 34.0H, Arterial Blood Oxygen Saturation 94.5L, Arterial Blood Base Excess 7.0H, Eugene Test Positive Height (Feet): 5 Height (Inches): 6.00 Weight (Pounds): 298 General Appearance: lethargic EENT: normal ENT inspection Neck: supple Cardiovascular: normal rate Respiratory/Chest: decreased breath sounds Abdomen: normal bowel sounds, non tender, soft Extremities: non-tender Assessment/Plan Problem List: (1) CKD (chronic kidney disease) stage 3, GFR 30-59 ml/min ICD Codes: N18.3 - Chronic kidney disease, stage 3 (moderate) SNOMED: 413000122 (2) COPD (chronic obstructive pulmonary disease) ICD Codes: J44.9 - Chronic obstructive pulmonary disease, unspecified SNOMED: 71857572 (3) Smoker ICD Codes: F17.200 - Nicotine dependence, unspecified, uncomplicated SNOMED: 55151945 (4) GERD (gastroesophageal reflux disease) ICD Codes: K21.9 - Gastro-esophageal reflux disease without esophagitis SNOMED: 467694203 (5) Atrial fibrillation with RVR ICD Codes: I48.91 - Unspecified atrial fibrillation SNOMED: 411296778851072 Status: stable Assessment/Plan: ngtf on hold for weaning pepcid fu H&H monitor labs bowel regimen fu cardiology recs icu care s/p one unit PRBC ppi cbc in Mervin Meraz MD Jan 03, 2020 14:28
--- NOTE | 2020-01-03 14:28 | Surgery Progress Note ---
Surgery Progress Note Subjective Additional Comments ill appearing no n/v leg stable cant wean trach? Objective Last 24 Hour Vital Signs Date Time Temp Pulse Resp B/P (MAP) Pulse Ox O2 Delivery O2 Flow Rate FiO2 01/03/20 14:00 79 10 120/68 (85) 95 01/03/20 13:30 84 10 109/63 (78) 01/03/20 13:00 75 18 98/54 (69) 90 01/03/20 12:30 114 18 120/68 (85) 01/03/20 12:00 126 01/03/20 12:00 40 01/03/20 12:00 Mechanical Ventilator 01/03/20 12:00 97.6 126 13 170/136 (147) 01/03/20 11:30 111 9 131/73 (92) 01/03/20 11:22 96 119/72 01/03/20 11:09 101 10 40 01/03/20 11:00 105 11 124/64 (84) 01/03/20 10:30 104 11 117/32 (60) 01/03/20 10:00 15 128/69 Mechanical Ventilator 40 01/03/20 10:00 119 17 128/69 (88) 98 01/03/20 09:30 113 16 108/80 (89) 01/03/20 09:29 106 22 40 40 01/03/20 09:00 126 15 137/74 (95) 97 01/03/20 09:00 20 137/74 40 01/03/20 09:00 68 104/59 01/03/20 08:30 102 16 108/79 (89) 01/03/20 08:00 40 01/03/20 08:00 129 01/03/20 08:00 Mechanical Ventilator 01/03/20 08:00 20 110/89 Mechanical Ventilator 40 01/03/20 08:00 98.8 101 20 110/89 (96) 01/03/20 07:40 90 20 100 Mechanical Ventilator 40 01/03/20 07:30 106 18 131/79 (96) 71 01/03/20 07:28 116 20 40 01/03/20 07:00 74 20 135/77 (96) 96 01/03/20 07:00 20 135/77 Mechanical Ventilator 40 01/03/20 06:00 79 20 127/78 (94) 98 01/03/20 06:00 20 127/78 Mechanical Ventilator 40 01/03/20 05:34 112 129/74 01/03/20 05:00 19 145/78 Mechanical Ventilator 40 01/03/20 05:00 89 19 122/67 (85) 93 01/03/20 04:00 40 01/03/20 04:00 97.7 95 20 140/79 (99) 96 01/03/20 04:00 20 147/114 Mechanical Ventilator 40 01/03/20 04:00 Mechanical Ventilator 01/03/20 04:00 118 01/03/20 03:11 92 20 40 01/03/20 03:00 16 126/115 Mechanical Ventilator 40 01/03/20 03:00 99 16 126/115 (119) 97 01/03/20 02:48 20 124/68 Mechanical Ventilator 40 01/03/20 02:00 16 124/65 Mechanical Ventilator 40 01/03/20 02:00 95 15 124/65 (84) 97 01/03/20 01:00 71 20 122/67 (85) 98 01/03/20 01:00 20 122/67 Mechanical Ventilator 40 01/03/20 00:00 83 01/03/20 00:00 Mechanical Ventilator 01/03/20 00:00 20 145/77 Mechanical Ventilator 40 01/03/20 00:00 100.5 82 20 145/77 (99) 96 01/02/20 23:25 103 153/80 01/02/20 23:00 79 20 40 01/02/20 23:00 80 19 162/81 (108) 98 01/02/20 23:00 19 162/81 Mechanical Ventilator 40 01/02/20 22:00 20 160/89 Mechanical Ventilator 40 01/02/20 22:00 84 19 176/89 (118) 99 01/02/20 21:00 91 20 158/86 (110) 100 01/02/20 21:00 40 01/02/20 21:00 20 119/104 Mechanical Ventilator 40 01/02/20 20:41 82 155/87 01/02/20 20:00 98.0 79 20 144/90 (108) 100 01/02/20 20:00 20 151/84 Mechanical Ventilator 40 01/02/20 20:00 83 01/02/20 20:00 Mechanical Ventilator 01/02/20 19:30 91 20 149/73 (98) 100 01/02/20 19:18 81 20 40 01/02/20 19:00 20 140/72 Mechanical Ventilator 45 01/02/20 19:00 97.9 103 22 140/80 (100) 96 01/02/20 18:19 20 141/75 Mechanical Ventilator 45 01/02/20 18:00 87 20 147/75 (99) 99 01/02/20 18:00 20 147/75 Mechanical Ventilator 45 01/02/20 17:23 81 141/74 01/02/20 17:00 82 20 151/85 (107) 99 01/02/20 17:00 16 151/85 Mechanical Ventilator 45 01/02/20 16:00 87 20 141/74 (96) 99 01/02/20 16:00 40 01/02/20 16:00 20 118/68 Mechanical Ventilator 45 01/02/20 16:00 Mechanical Ventilator 01/02/20 16:00 81 01/02/20 15:00 76 20 111/65 (80) 100 01/02/20 15:00 19 90/43 Mechanical Ventilator 45 01/02/20 15:00 107 21 40 I&O Intake and Output 01/02/20 01/03/20 19:00 07:00 Intake Total 1780 ml 1441 ml Output Total 790 ml 1025 ml Balance 990 ml 416 ml Free Water 60 ml 50 ml IV Total 1340 ml 1241 ml Tube Feeding 380 ml 150 ml Output Urine Total 790 ml 1025 ml # Bowel Movements 3 Dressing: other Wound: other Cardiovascular: RSR Respiratory: decreased breath sounds Abdomen: soft, non-tender, present bowel sounds Extremities: no tenderness, no cyanosis Laboratory Tests Test 01/02/20 20:46 01/03/20 04:30 01/03/20 05:46 01/03/20 07:17 POC Whole Blood Glucose Pending 117 MG/DL (74-106) H White Blood Count 2.9 K/UL (4.8-10.8) L Red Blood Count 2.98 M/UL (4.20-5.40) L Hemoglobin 8.4 G/DL (12.0-16.0) L Hematocrit 26.3 % (37.0-47.0) L Mean Corpuscular Volume 88 FL (80-99) Mean Corpuscular Hemoglobin 28.3 PG (27.0-31.0) Mean Corpuscular Hemoglobin Concent 32.1 G/DL (32.0-36.0) Red Cell Distribution Width 18.3 % (11.6-14.8) H Platelet Count 94 K/UL (150-450) L Mean Platelet Volume 7.1 FL (6.5-10.1) Neutrophils (%) (Auto) % (45.0-75.0) Lymphocytes (%) (Auto) % (20.0-45.0) Monocytes (%) (Auto) % (1.0-10.0) Eosinophils (%) (Auto) % (0.0-3.0) Basophils (%) (Auto) % (0.0-2.0) Differential Total Cells Counted 100 Neutrophils % (Manual) 84 % (45-75) H Lymphocytes % (Manual) 13 % (20-45) L Monocytes % (Manual) 3 % (1-10) Eosinophils % (Manual) 0 % (0-3) Basophils % (Manual) 0 % (0-2) Band Neutrophils 0 % (0-8) Platelet Estimate Decreased L Platelet Morphology Normal Anisocytosis 1+ Stool Occult Blood Negative (NEGATIVE) Sodium Level 144 MMOL/L (136-145) Potassium Level 5.1 MMOL/L (3.5-5.1) # Chloride Level 104 MMOL/L (98-107) Carbon Dioxide Level 37 MMOL/L (21-32) H Anion Gap 3 mmol/L (5-15) L Blood Urea Nitrogen 70 mg/dL (7-18) H Creatinine 1.6 MG/DL (0.55-1.30) H Estimat Glomerular Filtration Rate 32.1 mL/min (>60) Glucose Level 125 MG/DL (74-106) H Calcium Level 8.8 MG/DL (8.5-10.1) Total Bilirubin 2.0 MG/DL (0.2-1.0) H Direct Bilirubin 0.9 MG/DL (0.0-0.3) H Aspartate Amino Transf (AST/SGOT) 23 U/L (15-37) Alanine Aminotransferase (ALT/SGPT) 24 U/L (12-78) Alkaline Phosphatase 80 U/L (46-116) Total Protein 6.1 G/DL (6.4-8.2) L Albumin 2.1 G/DL (3.4-5.0) L Globulin 4.0 g/dL Albumin/Globulin Ratio 0.5 (1.0-2.7) L Arterial Blood pH 7.575 (7.350-7.450) Arterial Blood Partial Pressure CO2 36.6 mmHg (35.0-45.0) Arterial Blood Partial Pressure O2 60.8 mmHg (75.0-100.0) L Arterial Blood HCO3 33.2 mmol/L (22.0-26.0) H Arterial Blood Oxygen Saturation 90.6 % (95-100) L Arterial Blood Base Excess 10.5 (-2-2) *H Eugene Test Positive Test 01/03/20 11:55 01/03/20 13:20 Arterial Blood pH 7.345 (7.350-7.450) 7.340 (7.350-7.450) Arterial Blood Partial Pressure CO2 66.9 mmHg (35.0-45.0) *H 64.4 mmHg (35.0-45.0) *H Arterial Blood Partial Pressure O2 96.9 mmHg (75.0-100.0) 89.1 mmHg (75.0-100.0) Arterial Blood HCO3 35.7 mmol/L (22.0-26.0) H 34.0 mmol/L (22.0-26.0) H Arterial Blood Oxygen Saturation 95.4 % (95-100) 94.5 % (95-100) L Arterial Blood Base Excess 8.5 (-2-2) H 7.0 (-2-2) H Eugene Test Positive Positive Plan Problems: (1) Urinary tract infection (2) CHF exacerbation (3) History of schizophrenia (4) Atrial fibrillation with RVR (5) Schizophrenia (6) GERD (gastroesophageal reflux disease) (7) Smoker (8) Atrial fibrillation with rapid ventricular response (9) Lymphadema (10) COPD (chronic obstructive pulmonary disease) (11) CKD (chronic kidney disease) stage 3, GFR 30-59 ml/min (12) NATALIE (acute kidney injury) (13) Dehydration (14) Dysphagia (15) UTI (urinary tract infection) (16) UGI bleed (17) ESBL (extended spectrum beta-lactamase) producing bacteria infection (18) Constipation (19) Lactic acidosis (20) Tinea cruris (21) Onychomycosis (22) Emesis (23) Essential hypertension (24) Anemia (25) Cough (26) Depression (27) Depression (28) Edema (29) Rash (30) Opiate dependence (31) Opiate dependence (32) Opiate dependence (33) Opiate dependence (34) Pyelonephritis (35) Sepsis (36) UTI (urinary tract infection) (37) Nausea and vomiting (38) Abdominal pain Assessment & Plan: [age]-year-old female obese white abdominal pain deep tissue injury identified limited mobility on HD. KUB noted tube in place continue meds feeds Does not seem obstructed We will monitor lines noted. plan change resume tube feeds labs okay FINDINGS: Lower thorax: Obscuration of the left costophrenic angle suggestive of pleural effusion. Intraperitoneal space: No free air. Gastrointestinal tract: Unremarkable. No dilation. Bones/joints: Unremarkable. Tubes, lines and devices: The nasogastric tube has the tip at the mid inferior aspect of the gastric body. Other findings: Nonspecific gas pattern. Single frontal view of the abdomen demonstrates tip of the enteric tube and distal side-port projecting over the stomach. Gas is identified within the nondistended large bowel. There is a paucity of small bowel gas seen. Partially visualized left pleural effusion. No other significant interval change. (39) Chest pain (40) Chest pain (41) Nausea (42) Obesity (43) Chronic ulcer of leg (44) Chronic ulcer of leg (45) Chronic ulcer of leg (46) ACS (acute coronary syndrome) (47) Acute chest pain (48) Encounter for dressing change or suture removal (49) Left leg cellulitis (50) Acute encephalopathy (51) Encounter for wound re-check (52) Intractable nausea and vomiting (53) Infection due to ESBL-producing Escherichia coli (54) Chronic venous stasis (55) Change of dressing (56) Change of dressing (57) Change of dressing (58) Change of dressing (59) Change of dressing (60) Change of dressing (61) Change of dressing (62) Change of dressing (63) ESBL urine (64) Lymphadema (65) Lymphedema (66) Lymphedema (67) Lymphedema (68) Lymphedema (69) Lymphedema (70) Lymphedema (71) Lymphedema (72) Lymphedema (73) Open wound of foot (74) Open wound of foot (75) cellulitis (76) chronic lymphedema (77) chronic lymphedema (78) chronic lymphedema (79) hypertension uncontrolled (80) hypertension uncontrolled (81) Intertrigo (82) Sciatica (83) Cellulitis (84) Schizophrenia (85) Chronic bronchitis (86) HTN (hypertension) (87) Venous stasis ulcers (88) Medication refill (89) Chest pain, atypical (90) BMI 45.0-49.9, adult (91) Lymphedema of both lower extremities (92) hypertension uncontrolled (93) hypertension uncontrolled (94) hypertension uncontrolled (95) tenia corpus (96) Deep tissue injury Assessment & Plan: Morbidly obese pt whom presented on admission with Pressure injuries, Edemae bilat lower extremities eschar to dorsal aspects of metatarsals. Pt is very demanding of staff and can be resistive to rep ositioning. DTPI noted to L Sacrum(L)5.5cm x (W)2.5cm. Base of Pressure Injury is Maroon and indurated with surrounding non-blanchable erythema DTPI R Sacrum(L)5.5cm x (W)2.3cm. Base of Pressure Injury is maroon with purpuric center that is fluctuant. Pt complained of tenderness when minimally palpated. Bilat lower extremities are edematous . Dry eschar noted to nail matrix and tip of L 1st metatarsal, Dorsal L 2nd metatarsal, R 2nd and R 4th metatarsals. Both heels are boggy with non-Blanchable erythema. blisters forming on Right lower extremity anterior tibia. not infected cellulitis / edema on b/l le stable cont abx Tx.Plan: Apply Moisture Barrier Paste to Sacrum R and L gluteal cheeks. Cover with Optifoam drsgs. Change every 3 days and prn. Apply Betadine to dry eschar metatarsals both feet Daily. Apply Cavilon Skin Barrier to both heels. Cover each heel with Optifoam drsgs. Change every 7days and prn. Reposition at least every 2hours or as tolerated. Off-load heels with pillow. right leg hematoma stable critically ill and edema on right leg has compromised dermis over the hematoma. will likely need debridement once improved (97) COVID-19 Assessment & Plan: ++ on vent weaning abx as per ID (98) Respiratory failure (99) Pneumonia Juan Manuel Buckner Jan 03, 2020 14:27
--- NOTE | 2020-01-03 15:18 | NUR ---
CASE MANAGEMENT: REVIEW 01/03/20 SI: COVID-19 PNA . CHF . ATRIAL FIBRILLATION W/RVR . COPD . NATALIE . ANEMIA 100.5 82 20 145/77 96% MECH VENT FIO2 40 WBC 2.9 H/H 8.4/26.3 PLT 94 CO2 37 BUN/CREAT 70/1.6 T.LIAM 2.0 D.LIAM 0.9 ALB 2.1 ABG: pH 7.340 pCO2 64.4 HCO3 34.0 O2 SAT 94.5 BASE EXCESS 7.0 OB STOOL ~NEGATIVE IS: IV K-DUR X2 DOSES LASIX IV Q6HR FENTANYL IV Q24~TITRATING MEROPENEM IV Q12HR POLYMYXIN IV Q12HR ZYVOX IV Q12HR MICAFUNGIN IV Q24HR DECADRON IV QD NGT FEEDING SEROQUEL PO TID BLOOD TRANSFUSION X1 ICU STATUS PLAN: ADJUST VENT SETTINGS CONTROL HR ~TACHY MONITOR H/H WEANING TRAILS
--- NOTE | 2020-01-03 15:25 | NUR ---
NURSE NOTES: Weaning trial ended and retuned to AC 18, TV: 600, FIO2: 40% and peep of 5. Dr. Harris ordered to end weaning and return patient back to ac mode, also ordered to have feeding and fentanyl drip held on 01/04/20 at 0400 and begin at 0600 weaning with CPAP and PS of 8, have abg collected at 0800.
--- NOTE | 2020-01-03 15:30 | NUR ---
RESPIRATORY NOTE: Pt placed back on AC mode. Tolerated SBT for 6 hours. Set RR decreased to 18 per MD order. RN aware. Will continue to monitor.
--- NOTE | 2020-01-03 17:19 | NUR ---
NURSE NOTES: Fentanyl bag resumed to 300mcg/hr after patient was taken off weaning. tube feeding also resumed at 20ml/hr.
--- NOTE | 2020-01-03 19:30 | NUR ---
NURSE HAND-OFF REPORT: Latest Vital Signs: Temperature 99.1 , Pulse 86 , B/P 94 /61 , Respiratory Rate 18 , O2 SAT 97 , Mechanical Ventilator, O2 Flow Rate . Vital Sign Comment: EKG Rhythm: Atrial Fibrillation Rhythm change?: N Notified?: Y -MD Gaviota UNDERWOOD Response: Latest Abreu Fall Score: 75 Fall Risk: High Risk Safety Measures: Call light Within Reach, Bed Alarm Zone 2, Side Rails Side Rails x3, Bed position Low and Locked. Fall Precautions: Yellow Socks Report given to NOEL Stanley. patient remains on fenatnyl drip at 300mcg/hr.
--- NOTE | 2020-01-03 19:31 | NUR ---
NURSE NOTES: Pt was assessed after receiving change of shift report from Theresa COHEN. Pt currently on sedation vacation while Fentanyl drip is now at 300mcg/hr, infusing via left UA double lumen PICC line. Orally intubated, ETT 7.5 @24cm lipline with vent settings AC20, VT600, Peep 5.0, FIO2 40% currently at 100% O2Sat. AFib on color television console monitor, HR fluctuating from 80-105 bmp. NGT via left nare with feeding Glucerna 1.5, at 20ml due to high feed residuals, goal rate to be at 40ml/hr. Lockett catheter is present, draining, clear/dark yellow urine. Skin alterations are noted. Pt is on pressure release mattress and cooling blanket, with body temp being monitored via rectal tube. Bed is locked, HOB at 30 degrees, three side rails up, and bed in lowest position. Bilateral soft wrist restraints are in place to prevent self-extubation, as pt is impulsive and observed attempting to reach for ET tube. Skin and vascular integrity at restraint site remains within normal limits. Will continue with plan of care.
[2020-01-03] MEDS: Dyna-Hex 2% Top Sol 2oz TOPIC SCH (19:49)
[2020-01-03] MEDS: Miralax 17gm pkt NG SCH (19:50)
--- NOTE | 2020-01-03 20:00 | NUR ---
NURSE NOTES: Patient assessed; ventilator and airway safety checks performed, suctions and lavaged patient. Oral care performed. Patient was repositioned and therapeutic communication provided. CHG bath was also give, Patient is afebrile at this time. Patients blood pressures are stable at this time and HR remains in afib rhythm ranging around 70-90. No acute distress at this time. Will continue to monitor.
--- NOTE | 2020-01-03 20:04 | Cardiology Progress Note ---
Subjective DATE OF SERVICE: Jan 03, 2020 Doing poorly - remains in ICU in critical condition with guarded prognosis. Remains on vent support. BP range remaining low normal range. Remains COVID19 positive. Monitor: AFIb Persisting respiratory acidosis req'd intubation and mech ventilation - remains far from weaning. Had coffee ground material in NGTube and hematoma on right leg; anti-coagulation discont'd Venous Duplex: negative for DVT Renal fxn and free water deficit correcting CXR (01/02/20) improving infiltrates and eff'n Objective Last 24 Hour Vital Signs Date Time Temp Pulse Resp B/P (MAP) Pulse Ox O2 Delivery O2 Flow Rate FiO2 01/03/20 19:50 99 118/73 01/03/20 19:19 18 94/61 Mechanical Ventilator 40 01/03/20 19:00 86 18 94/61 (72) 97 01/03/20 18:30 98 15 133/121 (125) 95 01/03/20 18:25 116 116/69 01/03/20 18:19 18 116/69 Mechanical Ventilator 40 01/03/20 18:00 92 16 109/74 (86) 98 01/03/20 17:30 93 14 114/94 (101) 99 01/03/20 17:19 18 118/77 Mechanical Ventilator 40 01/03/20 17:00 96 16 109/74 (86) 94 01/03/20 16:30 92 18 112/70 (84) 95 01/03/20 16:00 Mechanical Ventilator 01/03/20 16:00 40 01/03/20 16:00 99.1 80 18 95/53 (67) 96 01/03/20 16:00 107 01/03/20 15:30 92 11 117/66 (83) 98 01/03/20 15:26 91 18 40 01/03/20 15:25 40 01/03/20 15:00 93 11 125/67 (86) 99 01/03/20 14:30 88 12 119/59 (79) 97 01/03/20 14:00 79 10 120/68 (85) 95 01/03/20 13:30 84 10 109/63 (78) 95 01/03/20 13:00 75 18 98/54 (69) 90 01/03/20 12:30 114 18 120/68 (85) 94 01/03/20 12:00 126 01/03/20 12:00 40 01/03/20 12:00 Mechanical Ventilator 01/03/20 12:00 97.6 126 13 170/136 (147) 93 01/03/20 11:30 111 9 131/73 (92) 95 01/03/20 11:22 96 119/72 01/03/20 11:10 15 124/64 Mechanical Ventilator 40 01/03/20 11:09 101 10 40 01/03/20 11:00 15 124/64 Mechanical Ventilator 40 01/03/20 11:00 105 11 124/64 (84) 96 01/03/20 10:30 104 11 117/32 (60) 95 01/03/20 10:00 15 128/69 Mechanical Ventilator 40 01/03/20 10:00 119 17 128/69 (88) 98 01/03/20 09:59 99 01/03/20 09:30 113 16 108/80 (89) 95 01/03/20 09:29 106 22 40 40 01/03/20 09:00 126 15 137/74 (95) 97 01/03/20 09:00 20 137/74 40 01/03/20 09:00 68 104/59 01/03/20 08:30 102 16 108/79 (89) 94 01/03/20 08:00 40 01/03/20 08:00 129 01/03/20 08:00 Mechanical Ventilator 01/03/20 08:00 20 110/89 Mechanical Ventilator 40 01/03/20 08:00 98.8 101 20 110/89 (96) 94 01/03/20 07:40 90 20 100 Mechanical Ventilator 40 01/03/20 07:30 106 18 131/79 (96) 71 01/03/20 07:28 116 20 40 01/03/20 07:00 74 20 135/77 (96) 96 01/03/20 07:00 20 135/77 Mechanical Ventilator 40 01/03/20 06:00 79 20 127/78 (94) 98 01/03/20 06:00 20 127/78 Mechanical Ventilator 40 01/03/20 05:34 112 129/74 01/03/20 05:00 19 145/78 Mechanical Ventilator 40 01/03/20 05:00 89 19 122/67 (85) 93 01/03/20 04:00 40 01/03/20 04:00 97.7 95 20 140/79 (99) 96 01/03/20 04:00 20 147/114 Mechanical Ventilator 40 01/03/20 04:00 Mechanical Ventilator 01/03/20 04:00 118 01/03/20 03:11 92 20 40 01/03/20 03:00 16 126/115 Mechanical Ventilator 40 01/03/20 03:00 99 16 126/115 (119) 97 01/03/20 02:48 20 124/68 Mechanical Ventilator 40 01/03/20 02:00 16 124/65 Mechanical Ventilator 40 01/03/20 02:00 95 15 124/65 (84) 97 01/03/20 01:00 71 20 122/67 (85) 98 01/03/20 01:00 20 122/67 Mechanical Ventilator 40 01/03/20 00:00 83 01/03/20 00:00 Mechanical Ventilator 01/03/20 00:00 20 145/77 Mechanical Ventilator 40 01/03/20 00:00 100.5 82 20 145/77 (99) 96 01/02/20 23:25 103 153/80 01/02/20 23:00 79 20 40 01/02/20 23:00 80 19 162/81 (108) 98 01/02/20 23:00 19 162/81 Mechanical Ventilator 40 01/02/20 22:00 20 160/89 Mechanical Ventilator 40 01/02/20 22:00 84 19 176/89 (118) 99 01/02/20 21:00 91 20 158/86 (110) 100 01/02/20 21:00 40 01/02/20 21:00 20 119/104 Mechanical Ventilator 40 01/02/20 20:41 82 155/87 01/02/20 20:00 98.0 79 20 144/90 (108) 100 01/02/20 20:00 20 151/84 Mechanical Ventilator 40 01/02/20 20:00 83 01/02/20 20:00 Mechanical Ventilator ROS: unchanged from 12/12/19 HEENT: Orally intubated, Mechanically Ventilated, Thin secretions ET Tube, other - NGtube RHYTHM: NSR, ST LUNGS: diminished breath sounds, right-sided rhonchi CARDIAC: normal S1 and S2, irregularly irregular ABDOMEN: other - obese EXTREMITIES: moderate edema - mostly non pitting, other - hematoma right leg Laboratory Tests Test 01/02/20 20:46 01/03/20 04:30 01/03/20 05:46 01/03/20 07:17 POC Whole Blood Glucose Pending 117 MG/DL (74-106) H White Blood Count 2.9 K/UL (4.8-10.8) L Red Blood Count 2.98 M/UL (4.20-5.40) L Hemoglobin 8.4 G/DL (12.0-16.0) L Hematocrit 26.3 % (37.0-47.0) L Mean Corpuscular Volume 88 FL (80-99) Mean Corpuscular Hemoglobin 28.3 PG (27.0-31.0) Mean Corpuscular Hemoglobin Concent 32.1 G/DL (32.0-36.0) Red Cell Distribution Width 18.3 % (11.6-14.8) H Platelet Count 94 K/UL (150-450) L Mean Platelet Volume 7.1 FL (6.5-10.1) Neutrophils (%) (Auto) % (45.0-75.0) Lymphocytes (%) (Auto) % (20.0-45.0) Monocytes (%) (Auto) % (1.0-10.0) Eosinophils (%) (Auto) % (0.0-3.0) Basophils (%) (Auto) % (0.0-2.0) Differential Total Cells Counted 100 Neutrophils % (Manual) 84 % (45-75) H Lymphocytes % (Manual) 13 % (20-45) L Monocytes % (Manual) 3 % (1-10) Eosinophils % (Manual) 0 % (0-3) Basophils % (Manual) 0 % (0-2) Band Neutrophils 0 % (0-8) Platelet Estimate Decreased L Platelet Morphology Normal Anisocytosis 1+ Stool Occult Blood Negative (NEGATIVE) Sodium Level 144 MMOL/L (136-145) Potassium Level 5.1 MMOL/L (3.5-5.1) # Chloride Level 104 MMOL/L (98-107) Carbon Dioxide Level 37 MMOL/L (21-32) H Anion Gap 3 mmol/L (5-15) L Blood Urea Nitrogen 70 mg/dL (7-18) H Creatinine 1.6 MG/DL (0.55-1.30) H Estimat Glomerular Filtration Rate 32.1 mL/min (>60) Glucose Level 125 MG/DL (74-106) H Calcium Level 8.8 MG/DL (8.5-10.1) Total Bilirubin 2.0 MG/DL (0.2-1.0) H Direct Bilirubin 0.9 MG/DL (0.0-0.3) H Aspartate Amino Transf (AST/SGOT) 23 U/L (15-37) Alanine Aminotransferase (ALT/SGPT) 24 U/L (12-78) Alkaline Phosphatase 80 U/L (46-116) Total Protein 6.1 G/DL (6.4-8.2) L Albumin 2.1 G/DL (3.4-5.0) L Globulin 4.0 g/dL Albumin/Globulin Ratio 0.5 (1.0-2.7) L Arterial Blood pH 7.575 (7.350-7.450) Arterial Blood Partial Pressure CO2 36.6 mmHg (35.0-45.0) Arterial Blood Partial Pressure O2 60.8 mmHg (75.0-100.0) L Arterial Blood HCO3 33.2 mmol/L (22.0-26.0) H Arterial Blood Oxygen Saturation 90.6 % (95-100) L Arterial Blood Base Excess 10.5 (-2-2) *H Eugene Test Positive Test 01/03/20 11:55 01/03/20 13:20 01/03/20 17:51 Arterial Blood pH 7.345 (7.350-7.450) 7.340 (7.350-7.450) Arterial Blood Partial Pressure CO2 66.9 mmHg (35.0-45.0) *H 64.4 mmHg (35.0-45.0) *H Arterial Blood Partial Pressure O2 96.9 mmHg (75.0-100.0) 89.1 mmHg (75.0-100.0) Arterial Blood HCO3 35.7 mmol/L (22.0-26.0) H 34.0 mmol/L (22.0-26.0) H Arterial Blood Oxygen Saturation 95.4 % (95-100) 94.5 % (95-100) L Arterial Blood Base Excess 8.5 (-2-2) H 7.0 (-2-2) H Eugene Test Positive Positive POC Whole Blood Glucose 111 MG/DL (74-106) H Assessment/Plan Assessment/Plan CRITICAL AND GUARDED Acute respiratory failure Acute on chronic respiratory acidosis AFiB with labile heart rates CHF, ac/chr diast - compensated BLE edema Sepsis with shock obesity COPD with bronchospasm Acute renal failure - worsening Pleural effusion GI bleeding Anemia - multifactorial Acute diastolic CHF Covid 19 PNA Hypokalemia Dehydration/hypernatremia Hypertension/HHD with labile BP Vent support Monitor acid/base parameters. Advance anti-HTN regimen. Transfuse PRBC's. Antimicrobials Titrate rate-control meds - hold digitalis for elevated levels. Maintain diltiazem and metoprolol. DC apixaban - hold anticoagulation due to GI bleeding; resume with GI clearance. Continued cardiac cath technician Diuresis based on clinical parameters; trend BNP May need trach Potassium and free water suppl as needed Possible thorocentesis per pulmonary Agree with consideration for DNR Jerome Meek MD Jan 03, 2020 20:04
--- NOTE | 2020-01-03 22:00 | NUR ---
NURSE NOTES: Patient relaxed after PRN Versed given. High tube residuals 60-75ml. Lower dose rate at this time. Suctioned patient and repositioned. Afib rhythm ranging around 70-85. Blood pressures stable. Will continue to monitor.
[2020-01-04] VITALS (33 sets, daily range): BP systolic 85–131; BP diastolic 47–87
--- NOTE | 2020-01-04 | NUR ---
NURSE NOTES: Patient is relaxed at this time, Afib rhythm 70-90 range 94/63. temperature is 98.8F rectally. Feeds placed on hold for because tube feed residuals are at 150ml. Will recheck later. Repositioned and suctioned, ventilator and airway tubing safety checks performed.
[2020-01-04] MEDS: fentaNYL 2500mcg/NS 250ml 250 ML IV SCH ×2 (01:29→17:31)
[2020-01-04] MEDS: Midazolam 2mg/2ml Inj IVP PRN ×4 (01:44→18:18)
--- NOTE | 2020-01-04 02:00 | NUR ---
NURSE NOTES: Patient alert and calm with 7.5 ETT at 24cm lip on ventilator AC 20 TV 600 FiO2 40% PEEP 5. BP122/67 HR81 Afib on monitor. Fentanyl 300mcg/hr. left hand #22 SL. left nare NGT feeds remain on hold due to high residuals. Lockett catheter draining yellow urine. patient repositioned and oral care provided.
[2020-01-04] MEDS: Meropenem 1gm/NS 55ml IVPB SCH ×4 (04:00→15:58)
--- NOTE | 2020-01-04 04:00 | NUR ---
NURSE NOTES: Patient given sponge bath and oral care, blood drawn and sent to lab. NAD at this time. Afebrile at this time. Patient can become restless at times and eventually settles down after a few moments. Repositioned patient. Rectal tube remians intact and draining well. Making good urine output. Will continue to monitor.
--- NOTE | 2020-01-04 04:19 | NUR ---
NURSE NOTES: Sedation held for weaning trials this morning. Feeds continue to be held since midnight due to high residuals. Right now patient has residuals of around 80-100ml. Patient placed in a high fowlers position. Vitals remains stable, Afib with stable rate.
[2020-01-04] MEDS: dilTIAZem HCl 90mg tab NG SCH ×4 (05:06→23:07)
[2020-01-04 05:26] LABS: HEMATOCRIT 25.8 % (37.0-47.0); HEMOGLOBIN 8.2 G/DL (12.0-16.0); MEAN CORPUSCULAR VOLUME 90 FL (80-99); PLATELET COUNT 91 K/UL (150-450); RED BLOOD COUNT 2.86 M/UL (4.20-5.40); RED CELL DISTRIBUTION WIDTH 18.9 % (11.6-14.8)
[2020-01-04] MEDS: NovoLOG Insulin Flexpen SUBQ SCH ×4 (05:41→20:55)
[2020-01-04 05:43] LABS: CALCIUM 8.7 MG/DL (8.5-10.1); CREATININE 1.7 MG/DL (0.55-1.30); POTASSIUM 3.8 MMOL/L (3.5-5.1)
--- NOTE | 2020-01-04 06:38 | NUR ---
NURSE NOTES: Informed that patient did not tolerate 6am weaning trials. mentioned to continue to hold fentanyl and resume SBT at 0800.
--- NOTE | 2020-01-04 06:56 | NUR ---
HAND-OFF: Report given to Feli COHEN.
--- NOTE | 2020-01-04 07:30 | NUR ---
NURSE NOTES: Patient received from Theodore COHEN. Patient stable at this time. AOx0, pupils sluggish BL. Opens eyes but does not track. Gag reflex present. Cardiac sounds benign. A fib on cardiac tech. Rhoncus BL on auscultation. ETT tube 7.5, 24 lip line. Vent settings AC 18 600mL 40% P5. NGT in place at about 65-70cm. Feeding held at this time due to high residuals. Residual at this time 40mL. Will continue to hold feed at this time. Lockett draining well to gravity. LT UA PICC line dressing dry and intact with ports flushed and patent. Patient failed weaning at 0600. Will attempt again. Restraints on with good ROM, circulation and sensation. Baseline edema present, generalized +2. Patient observed momentarily tensing up and reaching up. Side rails upx2, bed low and locked.
[2020-01-04] MEDS: Docusate 100mg/10ml Liq NG SCH ×2 (09:00→17:26)
[2020-01-04] MEDS: Enoxaparin 60mg Inj SUBQ SCH (09:00)
[2020-01-04] MEDS: Metoprolol Tartrate 50mg tab NG SCH ×2 (09:00→20:35)
[2020-01-04] MEDS: Pantoprazole Inj IVP SCH ×2 (09:18→20:35)
[2020-01-04] MEDS: Micafungin 100 MG in NS 110 ML IVPB SCH (09:18)
[2020-01-04] MEDS: Polymyxin B Sulfate 500,000 UNITS in D5W 500ml 550 ML IV SCH ×2 (09:20→20:35)
[2020-01-04] MEDS: Bacitracin Oint 15gm Tube TOPIC SCH ×2 (09:20→17:27)
--- NOTE | 2020-01-04 10:00 | Pulmonolgy Critical Care Note ---
Luz Bowen [employer]DOOR LANDSCAPER/GARDENER 01/04/20 1000: Critical Care - Asmt/Plan Assessment/Plan: ASSESSMENT acute hypoxemic hypercapnic resp failure, requiring intubation 12/22 failure to wean COVID 19 PNA sepsis fungemia UTI with E coli ESBL UTI VRE possible aspiration PNA Moderate R pleural effusion COPD Bronchospasm Atrial fibrillation with rapid ventricular response Congestive heart failure Acute renal failure on CKD Severe anemia Probable GI bleeding Thrombocytopenia Status post ground fall Tobacco dependency Morbid obesity probably GARY Homeless R knee edema and hematoma, likely sprain /strain post fall PLAN OF CARE ICU intubated 12/22 last ABG stable, keep settings as is and titrate Fio2 to keep sat above 90% MDI Albuterol in line with vent fup with CXR and ABG thoracentesis pending started on weaning trials with high PS settings as ordered, goal MV 10 toelrated 6 hrs 01/02, continue as tolerated, steroids IV ( started 12/23) continue for total of 10 days till 01/02 Remdesivir (started 12/24 ), dc 12/30 initial diagnoses with COVID 19 at [facility] 11/29, was not hypoxic and not intubated, was not treated with Remdesivivr , only received empiric abx for PNA sedation with Fentanyl gtt and versed prn - DVT prophylaxis with Lovenox prior Venous Duplex BLE -NGT COVID 19 by PCR 12/22 positive isolation IL 6 52 , initial CRP 15.6, ferritin 769, fup with inflammatory markers CRP 12/29 - down to 11.8 ; ferritin down to 503 CRP 01/03 -10.7 on diuresis with Lasix , monitor volumes closely creat remains stable rate control- per cardio recs: monitor volumes pro BNP trending down ECHO with pEF no evidence of WMA GI prophylaxis with PPI s/p Venofer x 2 s/p blood transfusion 12/25 monitor HH with goal to keep Hgb >7 s/p 1 u PRBC 01/01 GI procedure when stable monitor PLT counts renal US no hydro, BL nonobstructive stones s/p IV hydration, now resumed again per nephro monitor renal parameters, lytes , e/lyte management as per nephro recs creat stable UCX 12/11 + E coli ESBL, BCX 12/16 1/2 + yeast, fup with yeast ID, ? source BCX 12/17 NGTD BCX 12/22 and 12/24 NGTD UCX 12/16 VRE SCX 12/19 MRSA, ACB MDR now on meropenem , micafungin , Polymyxin ( all three till 01/04) , Zyvox ( completing today 01/03) as per ID recs; cooling blanket prn fevers prior X ray R knee given fall 12/15 , large hematoma, swelling-no fx or dislocation ice R knee and elevate CT head no acute IC pathology fall precautions prior declined Nicotine patch discussion on weight loss if receptive - not at this time; anxious and wants to go home pain management anxiolytic prn SW consult for placement evaluated by bioethics -> DNR/DNI status appropriate given current critical condition , grave prognosis and multiple comorbidities, would recommend DNR/DNI status as well now DNR/DNI status case discussed and evaluated by supervising physician ivy mccarty for a consult! Critical Care - Objective Last 24 Hour Vital Signs Date Time Temp Pulse Resp B/P (MAP) Pulse Ox O2 Delivery O2 Flow Rate FiO2 01/04/20 07:10 103 18 40 01/04/20 07:00 77 18 104/63 (77) 100 01/04/20 06:07 100 01/04/20 06:00 81 18 109/49 (69) 100 01/04/20 05:06 88 101/72 01/04/20 05:00 72 17 110/49 (69) 99 01/04/20 04:19 18 110/68 Mechanical Ventilator 40 01/04/20 04:00 88 01/04/20 04:00 40 01/04/20 04:00 99.0 92 18 101/72 (82) 98 01/04/20 04:00 Mechanical Ventilator 01/04/20 03:30 104 18 40 01/04/20 03:19 18 106/59 Mechanical Ventilator 40 01/04/20 03:00 79 18 120/69 (86) 98 01/04/20 02:19 18 106/58 Mechanical Ventilator 40 01/04/20 02:00 94 16 110/58 (75) 98 01/04/20 01:29 18 104/57 Mechanical Ventilator 40 01/04/20 01:19 18 125/75 Mechanical Ventilator 40 01/04/20 01:00 66 17 100/69 (79) 98 01/04/20 00:19 18 110/56 Mechanical Ventilator 40 01/04/20 00:00 Mechanical Ventilator 01/04/20 00:00 40 01/04/20 00:00 98.8 74 17 94/63 (73) 01/04/20 00:00 75 01/03/20 23:54 74 106/58 01/03/20 23:35 74 18 40 01/03/20 23:19 18 94/63 Mechanical Ventilator 40 01/03/20 23:00 73 18 106/58 (74) 99 01/03/20 22:19 18 108/72 Mechanical Ventilator 40 01/03/20 22:00 75 18 105/59 (74) 99 01/03/20 21:19 18 110/78 Mechanical Ventilator 40 01/03/20 21:00 82 18 113/76 (88) 97 01/03/20 20:19 18 145/85 Mechanical Ventilator 40 01/03/20 20:00 40 01/03/20 20:00 Mechanical Ventilator 01/03/20 20:00 105 16 146/76 (99) 97 01/03/20 19:57 105 18 40 01/03/20 19:50 99 118/73 01/03/20 19:19 18 94/61 Mechanical Ventilator 40 01/03/20 19:17 90 01/03/20 19:00 86 18 94/61 (72) 97 01/03/20 18:30 98 15 133/121 (125) 95 01/03/20 18:25 116 116/69 01/03/20 18:19 18 116/69 Mechanical Ventilator 40 01/03/20 18:00 92 16 109/74 (86) 98 01/03/20 17:30 93 14 114/94 (101) 99 01/03/20 17:19 18 118/77 Mechanical Ventilator 40 01/03/20 17:00 96 16 109/74 (86) 94 01/03/20 16:30 92 18 112/70 (84) 95 01/03/20 16:00 Mechanical Ventilator 01/03/20 16:00 40 01/03/20 16:00 99.1 80 18 95/53 (67) 96 01/03/20 16:00 107 01/03/20 15:30 92 11 117/66 (83) 98 01/03/20 15:26 91 18 40 01/03/20 15:25 40 01/03/20 15:00 93 11 125/67 (86) 99 01/03/20 14:30 88 12 119/59 (79) 97 01/03/20 14:00 79 10 120/68 (85) 95 01/03/20 13:30 84 10 109/63 (78) 95 01/03/20 13:00 75 18 98/54 (69) 90 01/03/20 12:30 114 18 120/68 (85) 94 01/03/20 12:00 126 01/03/20 12:00 40 01/03/20 12:00 Mechanical Ventilator 01/03/20 12:00 97.6 126 13 170/136 (147) 93 01/03/20 11:30 111 9 131/73 (92) 95 01/03/20 11:22 96 119/72 01/03/20 11:10 15 124/64 Mechanical Ventilator 40 01/03/20 11:09 101 10 40 01/03/20 11:00 15 124/64 Mechanical Ventilator 40 01/03/20 11:00 105 11 124/64 (84) 96 01/03/20 10:30 104 11 117/32 (60) 95 01/03/20 10:00 15 128/69 Mechanical Ventilator 40 01/03/20 10:00 119 17 128/69 (88) 98 01/03/20 09:59 99 Objective: CONDITION: critical General Appearance: morbidly obese , sedated, on vent AC 600-18-40% PEEP 5 Lines, tubes and drains: LUE PICC new , intact HEENT: normocephalic, atraumatic, anicteric, NGT in , OP with ET Neck: non-tender Respiratory/Chest: chest wall non-tender, no accessory muscle use, scattered rhonchi Cardiovascular/Chest: irregularly irregular - A fib , tachy at times , distant heart sounds, Abdomen: normal bowel sounds, non tender , obese, soft : Lockett Extremities: no calf tenderness, moderate edema - +3 BLE, R knee with large hematoma, edema, Skin Exam: warm/dry, multiple tattoos Neurologic: sedated Musculoskeletal: normal muscle bulk Accucheck: 117 Critical Care - Subjective ROS Limited/Unobtainable: Yes Interval Events: tolerated SBT x 6 hrs 01/02, then placed back to ABG noted this am on AC 18, fever last night, currently afebrile, remains leukopenic SBT for this am again , Fentanyl already placed on hold Condition: critical IV Access: PICC - LUE intact EKG Rhythm: Atrial Fibrillation FI02: 40 Vent Support Breath Rate: 18 Vent Support Mode: AC Vent Tidal Volume: 600 Sputum Amount: Moderate - mod amount, yellow color, thock consistency PEEP: 5.0 PIP: 32 Drips: Fentanyl gtt 300 mcg/hr Tube Feeding Amount: 20 I&O: Intake and Output 01/03/20 01/04/20 18:59 06:59 Intake Total 1439 ml 1300 ml Output Total 1065 ml 1440 ml Balance 374 ml -140 ml Free Water 30 ml IV Total 1199 ml 1200 ml Tube Feeding 180 ml 100 ml Other 30 ml Output Urine Total 1065 ml 1440 ml # Bowel Movements 53 1 CXR: CXR 01/01 Single slightly improved bilateral interstitial and airspace edema. Evidence of decreased right pleural effusion. ET-Tube: 7.5 ET Position: 24 Igor Carpio MD 01/04/20 1431: Critical Care - Asmt/Plan Assessment/Plan: Patient seen and examined with IN[employer]OR LANDSCAPER/GARDENER. Agree with A&P as it reflects our joint deliberations. Failed SBT but stable on vent Sedation held more alert Repeat SBT later today If unable to wean will need to consider trach Abx Diuresis LMWH TF's DNAR CC 40 Luz Bowen [employer] LANDSCAPER/GARDENER Jan 04, 2020 10:00 Igor Carpio MD Jan 04, 2020 14:31
--- NOTE | 2020-01-04 10:00 | NUR ---
NURSE NOTES: Patient stable. No s/sx of pain or distress. Unable to wean at this time due to increased HR.
--- NOTE | 2020-01-04 10:11 | NUR ---
RADIOLOGY DEPT., CHEST X-RAY DONE.-P.DYE
--- NOTE | 2020-01-04 10:30 | NUR ---
NURSE NOTES: Per RT Grover, patient failed weaning with desaturation, tachypnea and unable to retain volumes. Addendum: 01/04/20 at 1643 by RAIN FELIPE RN DISREGARD. INCORRECT DOCUMENTATION
--- NOTE | 2020-01-04 11:44 | General Progress Note ---
Subjective ROS Limited/Unobtainable: Yes Allergies: Coded Allergies: ERYTHROMYCIN BASE (Verified Allergy, Severe, 12/12/19) HALOPERIDOL (Verified Allergy, Unknown, 12/12/19) VANCOMYCIN (Unverified Adverse Reaction, Intermediate, Shortness of Breath, 12/12/19) Objective Last 24 Hour Vital Signs Date Time Temp Pulse Resp B/P (MAP) Pulse Ox O2 Delivery O2 Flow Rate FiO2 01/04/20 10:00 95 18 93/52 (66) 100 01/04/20 09:00 108 18 106/66 (79) 01/04/20 08:00 99.7 87 18 109/69 (82) 100 01/04/20 08:00 Mechanical Ventilator 01/04/20 08:00 40 01/04/20 07:10 103 18 40 01/04/20 07:00 77 18 104/63 (77) 100 01/04/20 06:07 100 01/04/20 06:00 81 18 109/49 (69) 100 01/04/20 05:06 88 101/72 01/04/20 05:00 72 17 110/49 (69) 99 01/04/20 04:19 18 110/68 Mechanical Ventilator 40 01/04/20 04:00 88 01/04/20 04:00 40 01/04/20 04:00 99.0 92 18 101/72 (82) 98 01/04/20 04:00 Mechanical Ventilator 01/04/20 03:30 104 18 40 01/04/20 03:19 18 106/59 Mechanical Ventilator 40 01/04/20 03:00 79 18 120/69 (86) 98 01/04/20 02:19 18 106/58 Mechanical Ventilator 40 01/04/20 02:00 94 16 110/58 (75) 98 01/04/20 01:29 18 104/57 Mechanical Ventilator 40 01/04/20 01:19 18 125/75 Mechanical Ventilator 40 01/04/20 01:00 66 17 100/69 (79) 98 01/04/20 00:19 18 110/56 Mechanical Ventilator 40 01/04/20 00:00 Mechanical Ventilator 01/04/20 00:00 40 01/04/20 00:00 98.8 74 17 94/63 (73) 01/04/20 00:00 75 01/03/20 23:54 74 106/58 01/03/20 23:35 74 18 40 01/03/20 23:19 18 94/63 Mechanical Ventilator 40 01/03/20 23:00 73 18 106/58 (74) 99 20 22:19 18 108/72 Mechanical Ventilator 40 01/03/20 22:00 75 18 105/59 (74) 99 20 21:19 18 110/78 Mechanical Ventilator 40 01/03/20 21:00 82 18 113/76 (88) 97 01/03/20 20:19 18 145/85 Mechanical Ventilator 40 01/03/20 20:00 40 01/03/20 20:00 Mechanical Ventilator 01/03/20 20:00 105 16 146/76 (99) 97 01/03/20 19:57 105 18 40 01/03/20 19:50 99 118/73 01/03/20 19:19 18 94/61 Mechanical Ventilator 40 01/03/20 19:17 90 01/03/20 19:00 86 18 94/61 (72) 97 01/03/20 18:30 98 15 133/121 (125) 95 01/03/20 18:25 116 116/69 01/03/20 18:19 18 116/69 Mechanical Ventilator 40 01/03/20 18:00 92 16 109/74 (86) 98 01/03/20 17:30 93 14 114/94 (101) 99 01/03/20 17:19 18 118/77 Mechanical Ventilator 40 01/03/20 17:00 96 16 109/74 (86) 94 01/03/20 16:30 92 18 112/70 (84) 95 01/03/20 16:00 Mechanical Ventilator 01/03/20 16:00 40 01/03/20 16:00 99.1 80 18 95/53 (67) 96 01/03/20 16:00 107 01/03/20 15:30 92 11 117/66 (83) 98 01/03/20 15:26 91 18 40 01/03/20 15:25 40 01/03/20 15:00 93 11 125/67 (86) 99 01/03/20 14:30 88 12 119/59 (79) 97 01/03/20 14:00 79 10 120/68 (85) 95 01/03/20 13:30 84 10 109/63 (78) 95 01/03/20 13:00 75 18 98/54 (69) 90 01/03/20 12:30 114 18 120/68 (85) 94 01/03/20 12:00 126 01/03/20 12:00 40 01/03/20 12:00 Mechanical Ventilator 01/03/20 12:00 97.6 126 13 170/136 (147) 93 Intake and Output 01/03/20 01/04/20 19:00 07:00 Intake Total 1409 ml 1280 ml Output Total 1030 ml 1900 ml Balance 379 ml -620 ml Free Water 30 ml IV Total 1169 ml 1200 ml Tube Feeding 180 ml 80 ml Other 30 ml Output Urine Total 1030 ml 1900 ml # Bowel Movements 53 1 Laboratory Tests 01/03/20 11:55: Arterial Blood pH 7.345L, Arterial Blood Partial Pressure CO2 66.9*H, Arterial Blood Partial Pressure O2 96.9, Arterial Blood HCO3 35.7H, Arterial Blood Oxygen Saturation 95.4, Arterial Blood Base Excess 8.5H, Eugene Test Positive 01/03/20 13:20: Arterial Blood pH 7.340L, Arterial Blood Partial Pressure CO2 64.4*H, Arterial Blood Partial Pressure O2 89.1, Arterial Blood HCO3 34.0H, Arterial Blood Oxygen Saturation 94.5L, Arterial Blood Base Excess 7.0H, Eugene Test Positive 01/03/20 16:08: POC Whole Blood Glucose 109H 01/03/20 17:51: POC Whole Blood Glucose 111H 01/04/20 04:00: White Blood Count 3.0L, Red Blood Count 2.86L, Hemoglobin 8.2L, Hematocrit 25.8L , Mean Corpuscular Volume 90, Mean Corpuscular Hemoglobin 28.6, Mean Corpuscular Hemoglobin Concent 31.7L, Red Cell Distribution Width 18.9H, Platelet Count 91L, Mean Platelet Volume 6.7, Neutrophils (%) (Auto) , Lymphocytes (%) (Auto) , Monocytes (%) (Auto) , Eosinophils (%) (Auto) , Basophils (%) (Auto) , Arterial Blood pH 7.420, Arterial Blood Partial Pressure CO2 52.4H, Arterial Blood Partial Pressure O2 100.3H, Arterial Blood HCO3 33.2H, Arterial Blood Oxygen Saturation 96.6, Arterial Blood Base Excess 7.8H, Eugene Test Positive, Sodium Level 142, Potassium Level 3.8, Chloride Level 102, Carbon Dioxide Level 35H, Anion Gap 5, Blood Urea Nitrogen 68H, Creatinine 1.7H, Estimat Glomerular Filtration Rate 30.0, Glucose Level 88, Calcium Level 8.7, C-Reactive Protein, Quantitative 10.7H Height (Feet): 5 Height (Inches): 6.00 Weight (Pounds): 298 General Appearance: lethargic, morbidly obese, other - on vent Cardiovascular: regularly irregular Respiratory/Chest: rhonchi - bilaterally Abdomen: non tender Edema: mild edema Neurologic: aphasia Skin: other - hematoma rle Assessment/Plan Problem List: (1) Schizophrenia ICD Codes: F20.9 - Schizophrenia, unspecified SNOMED: 35366496 (2) GERD (gastroesophageal reflux disease) ICD Codes: K21.9 - Gastro-esophageal reflux disease without esophagitis SNOMED: 981826138 (3) Lymphadema (4) Smoker ICD Codes: F17.200 - Nicotine dependence, unspecified, uncomplicated SNOMED: 56892743 (5) Atrial fibrillation with rapid ventricular response ICD Codes: I48.91 - Unspecified atrial fibrillation SNOMED: 553827961046936 (6) CKD (chronic kidney disease) stage 3, GFR 30-59 ml/min ICD Codes: N18.3 - Chronic kidney disease, stage 3 (moderate) SNOMED: 509803784 (7) NATALIE (acute kidney injury) ICD Codes: N17.9 - Acute kidney failure, unspecified SNOMED: 3643083, 43917188 (8) COPD (chronic obstructive pulmonary disease) ICD Codes: J44.9 - Chronic obstructive pulmonary disease, unspecified SNOMED: 28435257 (9) UGI bleed ICD Codes: K92.2 - Gastrointestinal hemorrhage, unspecified SNOMED: 26312734 (10) Dysphagia ICD Codes: R13.10 - Dysphagia, unspecified SNOMED: 87327058, 778719846 (11) UTI (urinary tract infection) ICD Codes: N39.0 - Urinary tract infection, site not specified SNOMED: 28562968 (12) ESBL (extended spectrum beta-lactamase) producing bacteria infection ICD Codes: A49.9 - Bacterial infection, unspecified; Z16.12 - Extended spectrum beta lactamase (ESBL) resistance SNOMED: 243837208 (13) Dehydration ICD Codes: E86.0 - Dehydration SNOMED: 30521064 (14) CHF exacerbation ICD Codes: I50.9 - Heart failure, unspecified SNOMED: 014291320, 00649285936625 (15) Acute respiratory failure ICD Codes: J96.00 - Acute respiratory failure, unspecified whether with hypoxia or hypercapnia SNOMED: 30630556 (16) COVID-19 ICD Codes: U07.1 - COVID-19 SNOMED: 997554512 (17) Pneumonia ICD Codes: J18.9 - Pneumonia, unspecified organism SNOMED: 772330471 Qualifiers: (18) Hematoma of lower leg ICD Codes: S80.10XA - Contusion of unspecified lower leg, initial encounter SNOMED: 650447227 (19) CKD (chronic kidney disease) stage 3, GFR 30-59 ml/min ICD Codes: N18.3 - Chronic kidney disease, stage 3 (moderate) SNOMED: 673725387 Status: stable Assessment/Plan: resp distress, icu, now intubated, natalie on ckd,,now stable, I/O, ,+hematoma RLE stop eliquis ancd asa, lovenox now iv protonix, rx esbl and + vre uti,g+ cocci linezolid , remains high risk, d/w psych, ID, cardiology, chf and on l asix ,covid neg prior now +, grave prognosis, fungemia on micafungin likely will be unable to wean for a long time, agitated when tried to wean and had apnea 01/01, cpap trial 01/02 + and so far adequately sedated and mild distress/tachycardia , ,all lab and orders reviewed , no active bleeding , icu time 35 min Benjamin Dumont MD Jan 04, 2020 11:44
[2020-01-04] MEDS: Acetaminophen 650mg/20.3ml NG PRN ×2 (11:52→18:19)
--- NOTE | 2020-01-04 12:25 | NUR ---
NURSE NOTES: Patient agitated. Versed 2mg given. VSS.
[2020-01-04] MEDS ORDERED: D5W 550ml IV ONE (12:47)
[2020-01-04] MEDS ORDERED: NS 275ml ONE (12:47)
--- NOTE | 2020-01-04 12:49 | Diagnostic Imaging Report ---
Indication: Dyspnea Technique: One view of the chest Comparison: 01/02/2020 Findings: Bilateral interstitial and airspace congestion, right pleural effusion, cardiomegaly persists, unchanged. Tube and line positions are unchanged Impression: Unchanged, over one day, findings as above.
--- NOTE | 2020-01-04 14:00 | NUR ---
NURSE NOTES: Patient stable. No s/sx of pain or distress.
--- NOTE | 2020-01-04 14:11 | General Progress Note ---
Subjective ROS Limited/Unobtainable: No Allergies: Coded Allergies: ERYTHROMYCIN BASE (Verified Allergy, Severe, 12/12/19) HALOPERIDOL (Verified Allergy, Unknown, 12/12/19) VANCOMYCIN (Unverified Adverse Reaction, Intermediate, Shortness of Breath, 12/12/19) Objective Last 24 Hour Vital Signs Date Time Temp Pulse Resp B/P (MAP) Pulse Ox O2 Delivery O2 Flow Rate FiO2 01/04/20 12:23 109 132/57 01/04/20 11:51 120 26 40 01/04/20 10:00 95 18 93/52 (66) 100 01/04/20 09:00 108 18 106/66 (79) 01/04/20 08:00 99.7 87 18 109/69 (82) 100 01/04/20 08:00 Mechanical Ventilator 01/04/20 08:00 40 01/04/20 07:10 103 18 40 01/04/20 07:00 77 18 104/63 (77) 100 01/04/20 06:07 100 01/04/20 06:00 81 18 109/49 (69) 100 01/04/20 05:06 88 101/72 01/04/20 05:00 72 17 110/49 (69) 99 01/04/20 04:19 18 110/68 Mechanical Ventilator 40 01/04/20 04:00 88 01/04/20 04:00 40 01/04/20 04:00 99.0 92 18 101/72 (82) 98 01/04/20 04:00 Mechanical Ventilator 01/04/20 03:30 104 18 40 01/04/20 03:19 18 106/59 Mechanical Ventilator 40 01/04/20 03:00 79 18 120/69 (86) 98 01/04/20 02:19 18 106/58 Mechanical Ventilator 40 01/04/20 02:00 94 16 110/58 (75) 98 01/04/20 01:29 18 104/57 Mechanical Ventilator 40 01/04/20 01:19 18 125/75 Mechanical Ventilator 40 01/04/20 01:00 66 17 100/69 (79) 98 01/04/20 00:19 18 110/56 Mechanical Ventilator 40 01/04/20 00:00 Mechanical Ventilator 01/04/20 00:00 40 01/04/20 00:00 98.8 74 17 94/63 (73) 01/04/20 00:00 75 01/03/20 23:54 74 106/58 01/03/20 23:35 74 18 40 01/03/20 23:19 18 94/63 Mechanical Ventilator 40 01/03/20 23:00 73 18 106/58 (74) 99 01/03/20 22:19 18 108/72 Mechanical Ventilator 40 01/03/20 22:00 75 18 105/59 (74) 99 01/03/20 21:19 18 110/78 Mechanical Ventilator 40 01/03/20 21:00 82 18 113/76 (88) 97 01/03/20 20:19 18 145/85 Mechanical Ventilator 40 01/03/20 20:00 40 01/03/20 20:00 Mechanical Ventilator 01/03/20 20:00 105 16 146/76 (99) 97 01/03/20 19:57 105 18 40 01/03/20 19:50 99 118/73 01/03/20 19:19 18 94/61 Mechanical Ventilator 40 01/03/20 19:17 90 01/03/20 19:00 86 18 94/61 (72) 97 01/03/20 18:30 98 15 133/121 (125) 95 01/03/20 18:25 116 116/69 01/03/20 18:19 18 116/69 Mechanical Ventilator 40 01/03/20 18:00 92 16 109/74 (86) 98 01/03/20 17:30 93 14 114/94 (101) 99 01/03/20 17:19 18 118/77 Mechanical Ventilator 40 01/03/20 17:00 96 16 109/74 (86) 94 01/03/20 16:30 92 18 112/70 (84) 95 01/03/20 16:00 Mechanical Ventilator 01/03/20 16:00 40 01/03/20 16:00 99.1 80 18 95/53 (67) 96 01/03/20 16:00 107 01/03/20 15:30 92 11 117/66 (83) 98 01/03/20 15:26 91 18 40 01/03/20 15:25 40 01/03/20 15:00 93 11 125/67 (86) 99 01/03/20 14:30 88 12 119/59 (79) 97 Intake and Output 01/03/20 01/04/20 18:59 06:59 Intake Total 1439 ml 1300 ml Output Total 1065 ml 1440 ml Balance 374 ml -140 ml Free Water 30 ml IV Total 1199 ml 1200 ml Tube Feeding 180 ml 100 ml Other 30 ml Output Urine Total 1065 ml 1440 ml # Bowel Movements 53 1 Laboratory Tests 01/03/20 16:08: POC Whole Blood Glucose 109H 01/03/20 17:51: POC Whole Blood Glucose 111H 01/04/20 04:00: White Blood Count 3.0L, Red Blood Count 2.86L, Hemoglobin 8.2L, Hematocrit 25.8L , Mean Corpuscular Volume 90, Mean Corpuscular Hemoglobin 28.6, Mean Corpuscular Hemoglobin Concent 31.7L, Red Cell Distribution Width 18.9H, Platelet Count 91L, Mean Platelet Volume 6.7, Neutrophils (%) (Auto) , Lymphocytes (%) (Auto) , Monocytes (%) (Auto) , Eosinophils (%) (Auto) , Basophils (%) (Auto) , Arterial Blood pH 7.420, Arterial Blood Partial Pressure CO2 52.4H, Arterial Blood Partial Pressure O2 100.3H, Arterial Blood HCO3 33.2H, Arterial Blood Oxygen Saturation 96.6, Arterial Blood Base Excess 7.8H, Eugene Test Positive, Sodium Level 142, Potassium Level 3.8, Chloride Level 102, Carbon Dioxide Level 35H, Anion Gap 5, Blood Urea Nitrogen 68H, Creatinine 1.7H, Estimat Glomerular Filtration Rate 30.0, Glucose Level 88, Calcium Level 8.7, C-Reactive Protein, Quantitative 10.7H Height (Feet): 5 Height (Inches): 6.00 Weight (Pounds): 298 General Appearance: no apparent distress EENT: normal ENT inspection Neck: supple Cardiovascular: normal rate Respiratory/Chest: decreased breath sounds Abdomen: normal bowel sounds, non tender, soft Extremities: non-tender Assessment/Plan Problem List: (1) CKD (chronic kidney disease) stage 3, GFR 30-59 ml/min ICD Codes: N18.3 - Chronic kidney disease, stage 3 (moderate) SNOMED: 632512510 (2) COPD (chronic obstructive pulmonary disease) ICD Codes: J44.9 - Chronic obstructive pulmonary disease, unspecified SNOMED: 02596272 (3) Smoker ICD Codes: F17.200 - Nicotine dependence, unspecified, uncomplicated SNOMED: 62468865 (4) GERD (gastroesophageal reflux disease) ICD Codes: K21.9 - Gastro-esophageal reflux disease without esophagitis SNOMED: 544765809 (5) Atrial fibrillation with RVR ICD Codes: I48.91 - Unspecified atrial fibrillation SNOMED: 416273301779759 Status: stable Assessment/Plan: ngtf pepcid fu H&H monitor labs bowel regimen fu cardiology recs icu care ppi cbc in am Mervin Victoria MD Jan 04, 2020 14:11
--- NOTE | 2020-01-04 14:50 | NUR ---
CASE MANAGEMENT:REVIEW 01/04/20 SI: COVID PNA 99.7 120 26 93/52 100% ON VENT SUPPORT W/40% FIO2 WBC-3.0 H/H-8.2/25.8 PLT-91 CO2+35 BUN+68 CR+1.7 PCO2+52.4 IS: IV MEROPENEM Q12 IV LINEZOLID Q12 IV LASIX Q12 IV POLYMYXIN Q12 IV MICAFUNGIN Q24 LOVENOX SQ QD : ICU STATUS
--- NOTE | 2020-01-04 15:21 | NUR ---
INSURANCE CLINICALS AND REVIEWS HAVE BEEN FAXED TO [facility] [phone]
--- NOTE | 2020-01-04 15:30 | NUR ---
NURSE NOTES: Patient agitated and unable to get true VS reading. Versed 2mg given. VS now stable.
--- NOTE | 2020-01-04 15:42 | Surgery Progress Note ---
Surgery Progress Note Subjective Additional Comments ill appearing labs noted no acute events Objective Last 24 Hour Vital Signs Date Time Temp Pulse Resp B/P (MAP) Pulse Ox O2 Delivery O2 Flow Rate FiO2 01/04/20 15:12 99 18 40 01/04/20 12:23 109 132/57 01/04/20 12:00 157 01/04/20 11:51 120 26 40 01/04/20 10:00 95 18 93/52 (66) 100 01/04/20 09:00 108 18 106/66 (79) 01/04/20 08:00 99.7 87 18 109/69 (82) 100 01/04/20 08:00 Mechanical Ventilator 01/04/20 08:00 40 01/04/20 08:00 96 01/04/20 07:10 103 18 40 01/04/20 07:00 77 18 104/63 (77) 100 01/04/20 06:07 100 01/04/20 06:00 81 18 109/49 (69) 100 01/04/20 05:06 88 101/72 01/04/20 05:00 72 17 110/49 (69) 99 01/04/20 04:19 18 110/68 Mechanical Ventilator 40 01/04/20 04:00 88 01/04/20 04:00 40 01/04/20 04:00 99.0 92 18 101/72 (82) 98 01/04/20 04:00 Mechanical Ventilator 01/04/20 03:30 104 18 40 01/04/20 03:19 18 106/59 Mechanical Ventilator 40 01/04/20 03:00 79 18 120/69 (86) 98 01/04/20 02:19 18 106/58 Mechanical Ventilator 40 01/04/20 02:00 94 16 110/58 (75) 98 01/04/20 01:29 18 104/57 Mechanical Ventilator 40 01/04/20 01:19 18 125/75 Mechanical Ventilator 40 01/04/20 01:00 66 17 100/69 (79) 98 01/04/20 00:19 18 110/56 Mechanical Ventilator 40 01/04/20 00:00 Mechanical Ventilator 01/04/20 00:00 40 01/04/20 00:00 98.8 74 17 94/63 (73) 01/04/20 00:00 75 01/03/20 23:54 74 106/58 01/03/20 23:35 74 18 40 01/03/20 23:19 18 94/63 Mechanical Ventilator 40 01/03/20 23:00 73 18 106/58 (74) 99 01/03/20 22:19 18 108/72 Mechanical Ventilator 40 01/03/20 22:00 75 18 105/59 (74) 99 01/03/20 21:19 18 110/78 Mechanical Ventilator 40 01/03/20 21:00 82 18 113/76 (88) 97 01/03/20 20:19 18 145/85 Mechanical Ventilator 40 01/03/20 20:00 40 01/03/20 20:00 Mechanical Ventilator 01/03/20 20:00 105 16 146/76 (99) 97 01/03/20 19:57 105 18 40 01/03/20 19:50 99 118/73 01/03/20 19:19 18 94/61 Mechanical Ventilator 40 01/03/20 19:17 90 01/03/20 19:00 86 18 94/61 (72) 97 01/03/20 18:30 98 15 133/121 (125) 95 01/03/20 18:25 116 116/69 01/03/20 18:19 18 116/69 Mechanical Ventilator 40 01/03/20 18:00 92 16 109/74 (86) 98 01/03/20 17:30 93 14 114/94 (101) 99 01/03/20 17:19 18 118/77 Mechanical Ventilator 40 01/03/20 17:00 96 16 109/74 (86) 94 01/03/20 16:30 92 18 112/70 (84) 95 01/03/20 16:00 Mechanical Ventilator 01/03/20 16:00 40 01/03/20 16:00 99.1 80 18 95/53 (67) 96 01/03/20 16:00 107 I&O Intake and Output 01/03/20 01/04/20 19:00 07:00 Intake Total 1409 ml 1280 ml Output Total 1030 ml 1900 ml Balance 379 ml -620 ml Free Water 30 ml IV Total 1169 ml 1200 ml Tube Feeding 180 ml 80 ml Other 30 ml Output Urine Total 1030 ml 1900 ml # Bowel Movements 53 1 Dressing: other Wound: other Drains: other Cardiovascular: RSR Respiratory: decreased breath sounds Abdomen: soft, non-tender, present bowel sounds Extremities: no cyanosis Laboratory Tests Test 01/03/20 16:08 01/03/20 17:51 01/04/20 04:00 POC Whole Blood Glucose 109 MG/DL (74-106) H 111 MG/DL (74-106) H White Blood Count 3.0 K/UL (4.8-10.8) L Red Blood Count 2.86 M/UL (4.20-5.40) L Hemoglobin 8.2 G/DL (12.0-16.0) L Hematocrit 25.8 % (37.0-47.0) L Mean Corpuscular Volume 90 FL (80-99) Mean Corpuscular Hemoglobin 28.6 PG (27.0-31.0) Mean Corpuscular Hemoglobin Concent 31.7 G/DL (32.0-36.0) L Red Cell Distribution Width 18.9 % (11.6-14.8) H Platelet Count 91 K/UL (150-450) L Mean Platelet Volume 6.7 FL (6.5-10.1) Neutrophils (%) (Auto) % (45.0-75.0) Lymphocytes (%) (Auto) % (20.0-45.0) Monocytes (%) (Auto) % (1.0-10.0) Eosinophils (%) (Auto) % (0.0-3.0) Basophils (%) (Auto) % (0.0-2.0) Arterial Blood pH 7.420 (7.350-7.450) Arterial Blood Partial Pressure CO2 52.4 mmHg (35.0-45.0) H Arterial Blood Partial Pressure O2 100.3 mmHg (75.0-100.0) H Arterial Blood HCO3 33.2 mmol/L (22.0-26.0) H Arterial Blood Oxygen Saturation 96.6 % (95-100) Arterial Blood Base Excess 7.8 (-2-2) H Eugene Test Positive Sodium Level 142 MMOL/L (136-145) Potassium Level 3.8 MMOL/L (3.5-5.1) Chloride Level 102 MMOL/L (98-107) Carbon Dioxide Level 35 MMOL/L (21-32) H Anion Gap 5 mmol/L (5-15) Blood Urea Nitrogen 68 mg/dL (7-18) H Creatinine 1.7 MG/DL (0.55-1.30) H Estimat Glomerular Filtration Rate 30.0 mL/min (>60) Glucose Level 88 MG/DL (74-106) Calcium Level 8.7 MG/DL (8.5-10.1) C-Reactive Protein, Quantitative 10.7 mg/dL (0.00-0.90) H Plan Problems: (1) Urinary tract infection (2) CHF exacerbation (3) History of schizophrenia (4) Atrial fibrillation with RVR (5) Schizophrenia (6) GERD (gastroesophageal reflux disease) (7) Smoker (8) Atrial fibrillation with rapid ventricular response (9) Lymphadema (10) COPD (chronic obstructive pulmonary disease) (11) CKD (chronic kidney disease) stage 3, GFR 30-59 ml/min (12) NATALIE (acute kidney injury) (13) Dehydration (14) Dysphagia (15) UTI (urinary tract infection) (16) UGI bleed (17) ESBL (extended spectrum beta-lactamase) producing bacteria infection (18) Constipation (19) Lactic acidosis (20) Tinea cruris (21) Onychomycosis (22) Emesis (23) Essential hypertension (24) Anemia (25) Cough (26) Depression (27) Depression (28) Edema (29) Rash (30) Opiate dependence (31) Opiate dependence (32) Opiate dependence (33) Opiate dependence (34) Pyelonephritis (35) Sepsis (36) UTI (urinary tract infection) (37) Nausea and vomiting (38) Abdominal pain Assessment & Plan: [age]-year-old female obese white abdominal pain deep tissue injury identified limited mobility on HD. KUB noted tube in place continue meds feeds Does not seem obstructed We will monitor lines noted. plan change resume tube feeds labs okay FINDINGS: Lower thorax: Obscuration of the left costophrenic angle suggestive of pleural effusion. Intraperitoneal space: No free air. Gastrointestinal tract: Unremarkable. No dilation. Bones/joints: Unremarkable. Tubes, lines and devices: The nasogastric tube has the tip at the mid inferior aspect of the gastric body. Other findings: Nonspecific gas pattern. Single frontal view of the abdomen demonstrates tip of the enteric tube and distal side-port projecting over the stomach. Gas is identified within the nondistended large bowel. There is a paucity of small bowel gas seen. Partially visualized left pleural effusion. No other significant interval change. (39) Chest pain (40) Chest pain (41) Nausea (42) Obesity (43) Chronic ulcer of leg (44) Chronic ulcer of leg (45) Chronic ulcer of leg (46) ACS (acute coronary syndrome) (47) Acute chest pain (48) Encounter for dressing change or suture removal (49) Left leg cellulitis (50) Acute encephalopathy (51) Encounter for wound re-check (52) Intractable nausea and vomiting (53) Infection due to ESBL-producing Escherichia coli (54) Chronic venous stasis (55) Change of dressing (56) Change of dressing (57) Change of dressing (58) Change of dressing (59) Change of dressing (60) Change of dressing (61) Change of dressing (62) Change of dressing (63) ESBL urine (64) Lymphadema (65) Lymphedema (66) Lymphedema (67) Lymphedema (68) Lymphedema (69) Lymphedema (70) Lymphedema (71) Lymphedema (72) Lymphedema (73) Open wound of foot (74) Open wound of foot (75) cellulitis (76) chronic lymphedema (77) chronic lymphedema (78) chronic lymphedema (79) hypertension uncontrolled (80) hypertension uncontrolled (81) Intertrigo (82) Sciatica (83) Cellulitis (84) Schizophrenia (85) Chronic bronchitis (86) HTN (hypertension) (87) Venous stasis ulcers (88) Medication refill (89) Chest pain, atypical (90) BMI 45.0-49.9, adult (91) Lymphedema of both lower extremities (92) hypertension uncontrolled (93) hypertension uncontrolled (94) hypertension uncontrolled (95) tenia corpus (96) Deep tissue injury Assessment & Plan: Morbidly obese pt whom presented on admission with Pressure injuries, Edemae bilat lower extremities eschar to dorsal aspects of metatarsals. Pt is very demanding of staff and can be resistive to repositioning. DTPI noted to L Sacrum(L)5.5cm x (W)2.5cm. Base of Pressure Injury is Maroon and indurated with surrounding non-blanchable erythema DTPI R Sacrum(L)5.5cm x (W)2.3cm. Base of Pressure Injury is maroon with purpuric center that is fluctuant. Pt complained of tenderness when minimally palpated. Bilat lower extremities are edematous . Dry eschar noted to nail matrix and tip of L 1st metatarsal, Dorsal L 2nd metatarsal, R 2nd and R 4th metatarsals. Both heels are boggy with non-Blanchable erythema. blisters forming on Right lower extremity anterior tibia. not infected cellulitis / edema on b/l le stable cont abx Tx.Plan: Apply Moisture Barrier Paste to Sacrum R and L gluteal cheeks. Cover with Optifoam drsgs. Change every 3 days and prn. Apply Betadine to dry eschar metatarsals both feet Daily. Apply Cavilon Skin Barrier to both heels. Cover each heel with Optifoam drsgs. Change every 7days and prn. Reposition at least every 2hours or as tolerated. Off-load heels with pillow. right leg hematoma stable critically ill and edema on right leg has compromised dermis over the hematoma. will likely need debridement once improved (97) COVID-19 Assessment & Plan: ++ on vent weaning abx as per ID (98) Respiratory failure (99) Pneumonia Juan Manuel Buckner Jan 04, 2020 15:42
--- NOTE | 2020-01-04 16:00 | NUR ---
NURSE NOTES: Patient stable. No s/sx of pain or distress.
--- NOTE | 2020-01-04 18:00 | NUR ---
NURSE NOTES: 200mL residual from NGT dark green in color. Will continue to hold feed at this time and will only use for medications. Will endorse. Fever trending down.
--- NOTE | 2020-01-04 18:32 | NUR ---
NURSE NOTES: Approximately 90mL found in old fentanyl bag. Witnessed by Alicia Garcia RN.
--- NOTE | 2020-01-04 19:10 | NUR ---
NURSE NOTES: Received patient and report from NOEL Edmond. Patient is observed resting in bed and remains obtunded. No pain noted upon assessment. Pt is orally intubated ett size 7.5 and noted to be 24 @ lip. Pt appears to be tolerating current vent settings well, vent settings as follows: AC 18, TV 600 FiO2 40% PEEP 5 with an O2 saturation of 94% noted at this time. Bilateral lower lobe breath sounds noted to be diminished upon auscultation. Pt noted to be AFib on tele monitor with a HR of 94 with no s/sx of acute cardiac distress noted. L hand 22g IV catheter noted to be dislodged by patient at this time. Left upper arm PICC line noted which remains asymptomatic, intact and patent. Central line dressing remains clean, dry and intact.Fentanyl currently infusing at 70mL/hr. VS obtained and noted to be stable at this time. NG tube noted to the L nare which remains secured, intact, and patent. GT feeding currently on hold with 180mL residual noted at this time. Active bowel sounds noted in all four quadrants; abdomen remains large, round and soft. Lockett catheter noted and draining to gravity with yellow urine in collection bag. Diagnostics reviewed at bedside. Skin alterations noted. Fall, Aspiration, Seizure and Skin precautions observed. Pt remains resting in bed; Bed remains in the lowest position with the safety wheels engaged, call light within reach, side rails up x3 and bed alarm activated. Will continue plan of care. Will continue to monitor.
--- NOTE | 2020-01-04 19:30 | NUR ---
NURSE HAND-OFF REPORT: Latest Vital Signs: Temperature 99.9 , Pulse 89 , B/P 118 /57 , Respiratory Rate 18 , O2 SAT 98 , Endotracheal Tube, O2 Flow Rate . Vital Sign Comment: Stable EKG Rhythm: Atrial Flutter Rhythm change?: N Notified?: N -MD Gaviota UNDERWOOD Response: Latest Abreu Fall Score: 75 Fall Risk: High Risk Safety Measures: Call light Within Reach, Bed Alarm Zone 2, Side Rails Side Rails x3, Bed position Low and Locked. Fall Precautions: Yellow Socks Report given to Joan RN. Patient stable.
[2020-01-04] MEDS: Dyna-Hex 2% Top Sol 2oz TOPIC SCH (20:34)
[2020-01-04] MEDS: Miralax 17gm pkt NG SCH (20:55)
--- NOTE | 2020-01-04 21:00 | NUR ---
NURSE NOTES: Pt provided with a CHG bed bath, oral care and linen change. ROM exercises provided per pt tolerance. Pt tolerated care well. Bedside assessment performed, assessed pt for pain using FLACC scale with a score of 0 noted. RASS score of -2 noted and Fentanyl remains therapeutic. VS obtained and remain stable at this time. Neuro assessment remains consistent with previous findings. Bilateral soft wrist remains remains in place for patient safety. Pt provided with education but unable to comprehend at this time and remains attempting to pull at medical devices. CMS remains intact. Fall, Aspiration and Skin precautions observed. Pt remains resting in bed; Bed remains in the lowest position with the safety wheels engaged, call light within reach, side rails up x3 and bed alarm activated. Will continue plan of care. Will continue to monitor.
--- NOTE | 2020-01-04 23:00 | NUR ---
NURSE NOTES: Bedside assessment performed, assessed pt with a FLACC scale of 0 noted. RASS score of -2 noted and Fentanyl now infusing at 90mcg/hr and remains therapeutic. VS obtained and remain stable at this time. Neuro assessment remains consistent with previous physical assessment findings. Bilateral soft wrist remains remains in palce for patient safety. Pt provided with education but remains unable to comprehend and follow commands at this time. CMS remains intact and ROM exercises provided. Pt provided with a partial bed bath and ordal care. Pt remains calm, comfortable, clean and dry. Pt repositioned for comfort and safety. Dr Coronel present at bedside to assess patient. Discussed current pt condition and plan of care. Fall, Aspiration and Skin precautions observed. Pt remains resting in bed; Bed remains in the lowest position with the safety wheels engaged, call light within reach, side rails up x3 and bed alarm activated. Will continue plan of care. Will continue to monitor.
--- NOTE | 2020-01-04 23:04 | Infectious Diseases Prog Note ---
Assessment/Plan Assessment/Plan ASSESSMENT AND PLAN: 1. hx esbl e.coli uti/pyelonephritis, sepsis, leukocytosis, fevers mrsa and vre colonization, NATALIE, respiratory distress/failure Fungemia - + yeast in blood - ID still pending mrsa pna/acinetobacter pna VRE uti covid-19 infection right leg swelling and redness noted, ? cellulitis, ? infected hematoma, ? wound infection - zyvox, meropenem, polymyxin - day # 13 abx combination - micafungin - da# 10/ post negative blood cultures - s/p remdesivir, on dexamethasone - monitor labs and chest x-ray - debridement right leg per surgery when patient stable - surveillance blood cultures negative - icu care, supportive care - d/w RN 2. Chronic kidney failure, acute renal failure. 3. COPD. 4. Pulmonary followup. 5. Renal followup. 6. History of falls. 7. Atrial fibrillation. Cardiology followup. 8. Obesity. 9. Gait disorder. 10. Schizophrenia. 11. Homeless. 12. Allergic to erythromycin, haloperidol, and vancomycin. 13. Social history is negative. 14. Family history is noncontributory. 15. MAR is noted. 16. Case discussed with RN. 17. Continue treatment per Dr. Dumont and consultants. Subjective Constitutional: Reports: fever, other - on vent, no pressors, cannot wean HEENT: Reports: congestion Respiratory: Reports: shortness of breath Cardiovascular: Denies: chest pain Gastrointestinal/Abdominal: Denies: nausea, vomiting, diarrhea Genitourinary: Reports: other - + trivedi Neurologic: Reports: weakness Psychiatric: Reports: other - NA Skin: Denies: rash Hematologic: Denies: bleeding Musculoskeletal: Reports: other - NA Allergies: Coded Allergies: ERYTHROMYCIN BASE (Verified Allergy, Severe, 12/12/19) HALOPERIDOL (Verified Allergy, Unknown, 12/12/19) VANCOMYCIN (Unverified Adverse Reaction, Intermediate, Shortness of Breath, 12/12/19) Objective Last 24 Hour Vital Signs Date Time Temp Pulse Resp B/P (MAP) Pulse Ox O2 Delivery O2 Flow Rate FiO2 01/04/20 22:31 18 116/61 Mechanical Ventilator 40 01/04/20 22:00 80 18 116/61 (79) 93 01/04/20 21:35 18 109/62 Mechanical Ventilator 40 01/04/20 21:31 18 109/62 Mechanical Ventilator 40 01/04/20 21:00 84 18 109/62 (78) 94 01/04/20 20:35 112 136/69 01/04/20 20:31 22 116/60 Mechanical Ventilator 40 01/04/20 20:30 121 22 116/60 (78) 89 01/04/20 20:16 20 118/87 Mechanical Ventilator 40 01/04/20 20:15 109 20 118/87 (97) 84 01/04/20 20:01 18 118/80 Mechanical Ventilator 40 01/04/20 20:00 40 01/04/20 20:00 99.4 81 18 118/80 (93) 100 01/04/20 20:00 Mechanical Ventilator 01/04/20 19:53 96 24 40 01/04/20 19:01 18 118/57 Endotracheal Tube 40 01/04/20 19:00 89 18 118/57 (77) 01/04/20 18:49 99.9 01/04/20 18:46 19 115/61 Endotracheal Tube 40 01/04/20 18:45 102 19 115/61 (79) 98 01/04/20 18:31 18 92/54 Endotracheal Tube 40 01/04/20 18:30 108 19 92/54 (67) 100 01/04/20 18:16 18 100/58 Endotracheal Tube 40 01/04/20 18:01 22 131/56 Endotracheal Tube 40 01/04/20 18:00 147 19 131/56 (81) 96 01/04/20 17:46 26 110/89 Endotracheal Tube 40 01/04/20 17:31 51 89/110 Endotracheal Tube 40 01/04/20 17:30 88 108/64 (79) 99 01/04/20 17:26 89 110/51 01/04/20 17:15 82 110/51 (70) 01/04/20 17:00 99.9 89 97/58 (71) 01/04/20 16:45 84 94/57 (69) 01/04/20 16:30 88 96/53 (67) 01/04/20 16:00 Mechanical Ventilator 01/04/20 16:00 40 01/04/20 16:00 80 01/04/20 16:00 100.9 89 104/53 (70) 01/04/20 15:12 99 18 40 9/25/20 15:00 112 111/50 (70) 97 01/04/20 14:00 96 18 98/48 (65) 01/04/20 13:00 100 15 102/56 (71) 96 01/04/20 12:23 109 132/57 01/04/20 12:22 100.6 01/04/20 12:00 100.5 106 21 112/60 (77) 100 01/04/20 12:00 157 01/04/20 12:00 Mechanical Ventilator 01/04/20 12:00 40 01/04/20 11:51 120 26 40 01/04/20 11:00 107 18 107/67 (80) 99 01/04/20 10:00 95 18 93/52 (66) 100 01/04/20 09:00 108 18 106/66 (79) 01/04/20 08:00 99.7 87 18 109/69 (82) 100 01/04/20 08:00 Mechanical Ventilator 01/04/20 08:00 40 01/04/20 08:00 96 01/04/20 07:10 103 18 40 01/04/20 07:00 77 18 104/63 (77) 100 01/04/20 06:07 100 01/04/20 06:00 81 18 109/49 (69) 100 01/04/20 05:06 88 101/72 01/04/20 05:00 72 17 110/49 (69) 99 01/04/20 04:19 18 110/68 Mechanical Ventilator 40 01/04/20 04:00 88 01/04/20 04:00 40 01/04/20 04:00 99.0 92 18 101/72 (82) 98 01/04/20 04:00 Mechanical Ventilator 01/04/20 03:30 104 18 40 01/04/20 03:19 18 106/59 Mechanical Ventilator 40 01/04/20 03:00 79 18 120/69 (86) 98 01/04/20 02:19 18 106/58 Mechanical Ventilator 40 01/04/20 02:00 94 16 110/58 (75) 98 01/04/20 01:29 18 104/57 Mechanical Ventilator 40 01/04/20 01:19 18 125/75 Mechanical Ventilator 40 01/04/20 01:00 66 17 100/69 (79) 98 01/04/20 00:19 18 110/56 Mechanical Ventilator 40 01/04/20 00:00 Mechanical Ventilator 01/04/20 00:00 40 01/04/20 00:00 98.8 74 17 94/63 (73) 01/04/20 00:00 75 01/03/20 23:54 74 106/58 01/03/20 23:35 74 18 40 01/03/20 23:19 18 94/63 Mechanical Ventilator 40 Height (Feet): 5 Height (Inches): 6.00 Weight (Pounds): 298 General Appearance: other - on vent, no pressors HEENT: normocephalic, atraumatic, anicteric Respiratory/Chest: crackles/rales, rhonchi - bilaterally Cardiovascular: normal rate, regular rhythm, no gallop/murmur, no JVD Abdomen: normal bowel sounds, soft, non tender, no organomegaly, non distended Genitourinary: other - + trivedi Extremities: no cyanosis Skin: no rash Neurologic/Psychiatric: other - sedated, on vent Lymphatic: no neck adenopathy Musculoskeletal: no effusion Chest x-ray - 11/17/19 - Procedure: XRAY Chest 1v Indication: Shortness of breath Technique: One view of the chest Comparison: 12/17/2019 Findings: The heart is enlarged. There is bilateral interstitial and airspace disease is again demonstrated, probably unchanged allowing for differences in degree of inspiration. Impression: Unchanged, over one day, findings as above. Chest x-ray - 12/21/19 - Procedure: XRAY Chest 1v Indication: Shortness of breath Technique: One view of the chest Comparison: 12/19/2019 Findings: The heart is enlarged. Bilateral extensive infiltrates are again demonstrated, stable to slightly worse allowing for differences in exposure technique. There is suggestion of increasing pleural fluid on the left. Nasoga stric tube is again demonstrated. Impression: Stable to worsened bilateral extensive infiltrates, since exam of 2 days prior Increasing left pleural effusion Chest x-ray - 12/23/19 - IMPRESSION: 1. No significant interval change from the prior chest x-ray. 2. Persistent moderate left pleural effusion and mild right pleural effusion. 3. Pulmonary vascular congestion. 4. Persistent opacity in the left lung base, which may represent atelectasis versus pneumonia. Chest x-ray - 12/25/19 - Procedure: XRAY Chest 1v Procedure: XRAY Chest 1v Reason for study: Reason For Exam: SOB Comparison films: 12/24/2019. FINDINGS: The tracheal tube and NG tube remain in place. Vascular prominence and bilateral hazy alveolar densities are unchanged. Cardiomegaly and small effusions also unchanged. The bony thorax appear unremarkable. IMPRESSION: NO SIGNIFICANT CHANGE COMPARED TO PREVIOUS EXAM. 12/26/19 - Procedure: XRAY Chest 1v Procedure: XRAY Chest 1v Reason for study: Reason For Exam: SOB Comparison films: 12/25/2019. FINDINGS: Endotracheal tube and NG tube remain in place. Hazy bilateral alveolar densities are essentially unchanged given the difference in technique. Cardiomegaly and right effusion again noted. The bony thorax appear unremarkable. IMPRESSION: NO SIGNIFICANT CHANGE COMPARED TO PREVIOUS EXAM. Chest x-ray - 12/28/19 - Procedure: XRAY Chest 1v Indication: Reason For Exam: SOB Technique: Single AP view of the chest. Comparison: Chest radiograph dated 12/27/2019 Findings: Exam is again noted to be diagnostically limited due to underpenetration, patient rotation, and exclusion of part of the left hemithorax from the [id number]. Within these limitations: No significant change in appearance of visualized cardiomediastinal silhouette. Unchanged layering right pleural effusion with associated basilar airspace o pacities. Likely retrocardiac consolidation, unchanged. No apical pneumothoraces. Unchanged enteric and endotracheal tubes. Unchanged left PICC. Chest x-ray - 12/30/19 - FINDINGS: Distal tip of ET tube is above devika. Distal tip of the enteric tube is in stomach. Stable left arm PICC line with distal tip likely in the left subclavian vein. Cardiac silhouette is within normal limits allowing for portable and rotated technique. Low lung volumes with elevated left hemidiaphragm. Again noted is a moderate right effusion with patchy infiltrates in the right mid to lower lung. Probable retrocardiac infiltrates. IMPRESSION: Little interval change in moderate right effusion and pneumonia/aspiration. Suspected retrocardiac infiltrate. The distal tip of the left arm PICC line is not well seen past the level of the left mid subclavian vein. [place] location is in the cavoatrial junction. Recommend advancement. <MYCVCSECTION> Chest x-ray - 01/04/20 - Procedure: XRAY Chest 1v Indication: Dyspnea Technique: One view of the chest Comparison: 01/02/2020 Findings: Bilateral interstitial and airspace congestion, right pleural effusion, cardiomegaly persists, unchanged. Tube and line positions are unchanged Impression: Unchanged, over one day, findings as above. Microbiology Date/Time Source Procedure Growth Status 12/25/19 15:45 Blood Blood Culture - Preliminary NO GROWTH AFTER 4 DAYS Resulted 12/23/19 23:50 Nasopharynx SARS-CoV-2 RdRp Gene Assay - Final Complete 12/17/19 20:45 Indwelling Cath Urine Culture - Final Enterococcus Faecium - Vre Complete 12/12/19 21:00 Rectum - Final NO CARBAPENEM-RESISTANT ENTEROBACTERI... Complete Laboratory Tests Test 01/04/20 04:00 01/04/20 20:44 White Blood Count 3.0 K/UL (4.8-10.8) L Red Blood Count 2.86 M/UL (4.20-5.40) L Hemoglobin 8.2 G/DL (12.0-16.0) L Hematocrit 25.8 % (37.0-47.0) L Mean Corpuscular Volume 90 FL (80-99) Mean Corpuscular Hemoglobin 28.6 PG (27.0-31.0) Mean Corpuscular Hemoglobin Concent 31.7 G/DL (32.0-36.0) L Red Cell Distribution Width 18.9 % (11.6-14.8) H Platelet Count 91 K/UL (150-450) L Mean Platelet Volume 6.7 FL (6.5-10.1) Neutrophils (%) (Auto) % (45.0-75.0) Lymphocytes (%) (Auto) % (20.0-45.0) Monocytes (%) (Auto) % (1.0-10.0) Eosinophils (%) (Auto) % (0.0-3.0) Basophils (%) (Auto) % (0.0-2.0) Arterial Blood pH 7.420 (7.350-7.450) Arterial Blood Partial Pressure CO2 52.4 mmHg (35.0-45.0) H Arterial Blood Partial Pressure O2 100.3 mmHg (75.0-100.0) H Arterial Blood HCO3 33.2 mmol/L (22.0-26.0) H Arterial Blood Oxygen Saturation 96.6 % (95-100) Arterial Blood Base Excess 7.8 (-2-2) H Eugene Test Positive Sodium Level 142 MMOL/L (136-145) Potassium Level 3.8 MMOL/L (3.5-5.1) Chloride Level 102 MMOL/L (98-107) Carbon Dioxide Level 35 MMOL/L (21-32) H Anion Gap 5 mmol/L (5-15) Blood Urea Nitrogen 68 mg/dL (7-18) H Creatinine 1.7 MG/DL (0.55-1.30) H Estimat Glomerular Filtration Rate 30.0 mL/min (>60) Glucose Level 88 MG/DL (74-106) Calcium Level 8.7 MG/DL (8.5-10.1) C-Reactive Protein, Quantitative 10.7 mg/dL (0.00-0.90) H POC Whole Blood Glucose Pending Current Medications Medications (Trade) Dose Ordered Sig/Shiraz Route PRN Reason Start Time Stop Time Status Last Admin Dose Admin Acetaminophen (Tylenol) 650 mg Q4H PRN NG Mild Pain (Pain Scale 1-3) 12/22/19 16:00 01/11/20 22:14 12/28/19 05:27 Acetaminophen (Tylenol) 650 mg Q4H PRN NG Temp >100.5 12/22/19 16:00 01/11/20 22:14 01/04/20 18:19 Acetazolamide (Diamox) 500 mg TWICE A DAY NG 01/02/20 18:00 02/01/20 17:59 01/04/20 17:26 Albuterol Sulfate (Proventil MDI) 2 puff Q4H PRN INH Shortness of Breath 12/24/19 10:30 03/23/20 10:29 Bacitracin (Bacitracin 15gm tube) 1 applic BID TOPIC 12/22/19 18:00 03/12/20 08:59 01/04/20 17:27 Chlorhexidine Gluconate (Jessie-Hex 2%) 1 applic DAILY@1999 TOPIC 12/24/19 20:00 03/23/20 19:59 01/04/20 20:34 Chlorpromazine (Thorazine) 50 mg Q6H PRN IM agitation 12/30/19 02:30 01/29/20 02:29 01/03/20 19:49 Clotrimazole (Lotrimin) 1 applic TWICE A DAY TOPIC 12/22/19 18:00 03/12/20 08:59 01/04/20 17:27 Dextrose (Dextrose 50%) 25 ml Q30M PRN IV Hypoglycemia 12/23/19 10:45 03/22/20 10:44 Dextrose (Dextrose 50%) 50 ml Q30M PRN IV Hypoglycemia 12/23/19 10:45 03/22/20 10:44 Diltiazem HCl (Cardizem Tab) 90 mg Q6HR NG 12/22/19 18:00 01/13/20 11:59 01/04/20 17:26 Docusate Sodium (Colace) 100 mg BID NG 12/25/19 09:00 01/24/20 08:59 01/03/20 09:13 Enoxaparin Sodium (Lovenox) 60 mg DAILY SUBQ 12/23/19 09:00 03/22/20 08:59 12/29/19 08:50 Fentanyl Citrate 250 ml @ 0 mls/hr Q24H IV 01/04/20 17:30 01/06/20 17:29 01/04/20 17:31 Furosemide (Lasix) 60 mg Q6HR IV 12/31/19 12:00 01/30/20 11:59 01/04/20 17:25 Insulin Aspart (NovoLOG) BEFORE MEALS AND HS SUBQ 12/23/19 11:30 03/22/20 11:29 01/02/20 18:20 Magnesium Hydroxide (Mom) 30 ml HSPRN PRN NG Constipation 12/22/19 15:15 01/21/20 15:14 01/02/20 22:20 Meropenem 1 gm/ Sodium Chloride 55 ml @ 110 mls/hr Q12HR@0400,1600 IVPB 01/02/20 16:00 01/07/20 15:59 01/04/20 15:58 Metoprolol Tartrate (Lopressor) 50 mg Q12HR NG 12/22/19 21:00 03/18/20 20:59 01/04/20 20:35 Micafungin Sodium 100 mg/Sodium Chloride 110 ml @ 110 mls/hr Q24H IVPB 12/27/19 09:00 01/05/20 08:59 01/04/20 09:18 Midazolam HCl (Versed 2mg/2ml vial) 2 mg Q1H PRN IVP For Anxiety 01/02/20 07:45 01/09/20 07:44 01/04/20 18:18 Nitroglycerin (Ntg) 0.4 mg Q5M PRN SL Prn Chest Pain 12/22/19 15:00 01/11/20 22:14 Ondansetron HCl (Zofran) 4 mg Q6H PRN IVP Nausea & Vomiting 12/22/19 15:15 01/11/20 15:14 Pantoprazole (Protonix) 40 mg EVERY 12 HOURS IVP 01/01/20 21:00 01/31/20 20:59 01/04/20 20:35 Polyethylene Glycol (Miralax) 17 gm BEDTIME NG 12/22/19 21:00 01/18/20 20:59 01/03/20 19:50 Polymyxin B Sulfate 235005 units/Dextrose 550 ml @ 550 mls/hr EVERY 12 HOURS IV 12/29/19 21:00 01/05/20 20:59 01/04/20 20:35 Quetiapine Fumarate (SEROqueL) 100 mg EVERY 8 HOURS ORAL 01/04/20 22:00 02/16/20 21:59 01/04/20 22:53 Aleisha Coronel MD Jan 04, 2020 23:04
--- NOTE | 2020-01-04 23:59 | Psych Consult Progress Note ---
Psychiatry Progress Note Psychiatry Progress Note Subjective cont to be agitated and on bilat restraints. the pt is intubated and still gets agitated Medications Current Medications Medications (Trade) Dose Ordered Sig/Shiraz Route PRN Reason Start Time Stop Time Status Last Admin Dose Admin Acetaminophen (Tylenol) 650 mg Q4H PRN NG Mild Pain (Pain Scale 1-3) 12/22/19 16:00 01/11/20 22:14 12/28/19 05:27 Acetaminophen (Tylenol) 650 mg Q4H PRN NG Temp >100.5 12/22/19 16:00 01/11/20 22:14 01/04/20 18:19 Acetazolamide (Diamox) 500 mg TWICE A DAY NG 01/02/20 18:00 02/01/20 17:59 01/04/20 17:26 Albuterol Sulfate (Proventil MDI) 2 puff Q4H PRN INH Shortness of Breath 12/24/19 10:30 03/23/20 10:29 Bacitracin (Bacitracin 15gm tube) 1 applic BID TOPIC 12/22/19 18:00 03/12/20 08:59 01/04/20 17:27 Chlorhexidine Gluconate (Jessie-Hex 2%) 1 applic DAILY@1999 TOPIC 12/24/19 20:00 03/23/20 19:59 01/04/20 20:34 Chlorpromazine (Thorazine) 50 mg Q6H PRN IM agitation 12/30/19 02:30 01/29/20 02:29 01/03/20 19:49 Clotrimazole (Lotrimin) 1 applic TWICE A DAY TOPIC 12/22/19 18:00 03/12/20 08:59 01/04/20 17:27 Dextrose (Dextrose 50%) 25 ml Q30M PRN IV Hypoglycemia 12/23/19 10:45 03/22/20 10:44 Dextrose (Dextrose 50%) 50 ml Q30M PRN IV Hypoglycemia 12/23/19 10:45 03/22/20 10:44 Diltiazem HCl (Cardizem Tab) 90 mg Q6HR NG 12/22/19 18:00 01/13/20 11:59 01/04/20 23:07 Docusate Sodium (Colace) 100 mg BID NG 12/25/19 09:00 01/24/20 08:59 01/03/20 09:13 Doxycycline Hyclate 100 mg/ Dextrose 100 ml @ 100 mls/hr Q12H IV 01/05/20 00:00 01/12/20 00:00 Enoxaparin Sodium (Lovenox) 60 mg DAILY SUBQ 12/23/19 09:00 03/22/20 08:59 12/29/19 08:50 Fentanyl Citrate 250 ml @ 0 mls/hr Q24H IV 01/04/20 17:30 01/06/20 17:29 01/04/20 17:31 Furosemide (Lasix) 60 mg Q6HR IV 12/31/19 12:00 01/30/20 11:59 01/04/20 23:07 Insulin Aspart (NovoLOG) BEFORE MEALS AND HS SUBQ 12/23/19 11:30 03/22/20 11:29 01/02/20 18:20 Magnesium Hydroxide (Mom) 30 ml HSPRN PRN NG Constipation 12/22/19 15:15 01/21/20 15:14 01/02/20 22:20 Meropenem 1 gm/ Sodium Chloride 55 ml @ 110 mls/hr Q12HR@0400,1600 IVPB 01/02/20 16:00 01/07/20 15:59 01/04/20 15:58 Metoprolol Tartrate (Lopressor) 50 mg Q12HR NG 12/22/19 21:00 03/18/20 20:59 01/04/20 20:35 Micafungin Sodium 100 mg/Sodium Chloride 110 ml @ 110 mls/hr Q24H IVPB 01/05/20 09:00 01/14/20 08:59 Midazolam HCl (Versed 2mg/2ml vial) 2 mg Q1H PRN IVP For Anxiety 01/02/20 07:45 01/09/20 07:44 01/04/20 18:18 Nitroglycerin (Ntg) 0.4 mg Q5M PRN SL Prn Chest Pain 12/22/19 15:00 01/11/20 22:14 Ondansetron HCl (Zofran) 4 mg Q6H PRN IVP Nausea & Vomiting 12/22/19 15:15 01/11/20 15:14 Pantoprazole (Protonix) 40 mg EVERY 12 HOURS IVP 01/01/20 21:00 01/31/20 20:59 01/04/20 20:35 Polyethylene Glycol (Miralax) 17 gm BEDTIME NG 12/22/19 21:00 01/18/20 20:59 01/03/20 19:50 Polymyxin B Sulfate 257232 units/Dextrose 550 ml @ 550 mls/hr EVERY 12 HOURS IV 12/29/19 21:00 01/05/20 20:59 01/04/20 20:35 Quetiapine Fumarate (SEROqueL) 100 mg EVERY 8 HOURS ORAL 01/04/20 22:00 02/16/20 21:59 01/04/20 22:53 Neurological/Psychiatric: Reports: anxiety, depressed, emotional problems Allergies: Coded Allergies: ERYTHROMYCIN BASE (Verified Allergy, Severe, 12/12/19) HALOPERIDOL (Verified Allergy, Unknown, 12/12/19) VANCOMYCIN (Unverified Adverse Reaction, Intermediate, Shortness of Breat h, 12/12/19) Objective Data Height (Feet): 5 Height (Inches): 6.00 Weight (Pounds): 298 General Appearance: no apparent distress Additional Comments: confused. Mood is anxious. Affect is flat. Assessment/Plan [place] [facility] I: thorazin IM seroquel 50 q 8 hr midazolam bilat soft restraints Status: stable Status Narrative thorazin IM seroquel 50 q 8 hr midazolam bilat soft restraints Assessment/Plan: thorazin IM seroquel 50 q 8 hr midazolam bilat soft restraints Harris Ballesteros MD Jan 04, 2020 23:59
[2020-01-05] VITALS (26 sets, daily range): BP systolic 60–124; BP diastolic 32–111
[2020-01-05] MEDS ORDERED: Doxycycline 100mg Inj IV ONE (00:41)
--- NOTE | 2020-01-05 01:00 | NUR ---
NURSE NOTES: Bedside assessment performed, assessed pt with a FLACC scale of 0 noted. RASS score of -1 noted however Fentanyl remains on hold r/t hemodynamic instability with SBP <90 noted. VS otherwise remain stable at this time. Bilateral soft wrist remains remains in place for patient safety. Pt provided with education but remains unable to comprehend and follow commands at this time. CMS remains intact and ROM exercises provided. Pt provided with a partial bed bath and oral care. Pt remains calm, comfortable, clean and dry. Pt repositioned for comfort and safety. GT feeding remains on hold due to 175mL residual noted. Fall, Aspiration and Skin precautions observed. Pt remains resting in bed; Bed remains in the lowest position with the safety wheels engaged, call light within reach, side rails up x3 and bed alarm activated. Will continue plan of care. Will continue to monitor.
--- NOTE | 2020-01-05 02:25 | Cardiology Progress Note ---
Subjective DATE OF SERVICE: Jan 04, 2020 Doing poorly - remains in ICU in critical condition with guarded prognosis. Remains on vent support - failed weaning trials. BP range remaining low normal range. Remains COVID19 positive. Monitor: AFIb Persisting respiratory acidosis req'd intubation and mech ventilation - remains far from weaning. Had coffee ground material in NGTube and hematoma on right leg; anti-coagulation discont'd Venous Duplex: negative for DVT Renal fxn and free water deficit correcting CXR (01/04/20) bilateral infiltrates and eff'n - unchanged. Objective Last 24 Hour Vital Signs Date Time Temp Pulse Resp B/P (MAP) Pulse Ox O2 Delivery O2 Flow Rate FiO2 01/05/20 01:00 74 18 87/47 (60) 01/05/20 00:30 83 18 86/55 (65) 100 01/05/20 00:15 88 60/32 (41) 98 01/05/20 00:15 18 60/32 Mechanical Ventilator 40 01/05/20 00:00 98.4 99 87/47 (60) 01/05/20 00:00 40 01/05/20 00:00 16 87/47 Mechanical Ventilator 40 01/05/20 00:00 Mechanical Ventilator 01/04/20 23:45 18 85/48 Mechanical Ventilator 40 01/04/20 23:45 80 14 85/48 (60) 99 01/04/20 23:42 67 18 40 01/04/20 23:31 18 101/47 Mechanical Ventilator 40 01/04/20 23:09 75 01/04/20 23:07 87 111/54 01/04/20 23:00 76 18 101/47 (65) 99 01/04/20 22:31 18 116/61 Mechanical Ventilator 40 01/04/20 22:00 80 18 116/61 (79) 93 01/04/20 21:35 18 109/62 Mechanical Ventilator 40 01/04/20 21:31 18 109/62 Mechanical Ventilator 40 01/04/20 21:00 84 18 109/62 (78) 94 01/04/20 20:35 112 136/69 01/04/20 20:31 22 116/60 Mechanical Ventilator 40 01/04/20 20:30 121 22 116/60 (78) 89 01/04/20 20:16 20 118/87 Mechanical Ventilator 40 9/25/20 20:15 109 20 118/87 (97) 84 01/04/20 20:01 18 118/80 Mechanical Ventilator 40 01/04/20 20:00 40 01/04/20 20:00 99.4 81 18 118/80 (93) 100 01/04/20 20:00 Mechanical Ventilator 01/04/20 19:53 96 24 40 01/04/20 19:19 77 01/04/20 19:01 18 118/57 Endotracheal Tube 40 01/04/20 19:00 89 18 118/57 (77) 01/04/20 18:49 99.9 01/04/20 18:46 19 115/61 Endotracheal Tube 40 01/04/20 18:45 102 19 115/61 (79) 98 01/04/20 18:31 18 92/54 Endotracheal Tube 40 01/04/20 18:30 108 19 92/54 (67) 100 01/04/20 18:16 18 100/58 Endotracheal Tube 40 01/04/20 18:01 22 131/56 Endotracheal Tube 40 01/04/20 18:00 147 19 131/56 (81) 96 01/04/20 17:46 26 110/89 Endotracheal Tube 40 01/04/20 17:31 51 89/110 Endotracheal Tube 40 01/04/20 17:30 88 108/64 (79) 99 01/04/20 17:26 89 110/51 01/04/20 17:15 82 110/51 (70) 01/04/20 17:00 99.9 89 97/58 (71) 01/04/20 16:45 84 94/57 (69) 01/04/20 16:30 88 96/53 (67) 01/04/20 16:00 Mechanical Ventilator 01/04/20 16:00 40 01/04/20 16:00 80 01/04/20 16:00 100.9 89 104/53 (70) 01/04/20 15:12 99 18 40 01/04/20 15:00 112 111/50 (70) 97 01/04/20 14:00 96 18 98/48 (65) 01/04/20 13:00 100 15 102/56 (71) 96 01/04/20 12:23 109 132/57 01/04/20 12:22 100.6 01/04/20 12:00 100.5 106 21 112/60 (77) 100 01/04/20 12:00 157 01/04/20 12:00 Mechanical Ventilator 01/04/20 12:00 40 01/04/20 11:51 120 26 40 01/04/20 11:00 107 18 107/67 (80) 99 01/04/20 10:00 95 18 93/52 (66) 100 01/04/20 09:00 108 18 106/66 (79) 01/04/20 08:00 99.7 87 18 109/69 (82) 100 01/04/20 08:00 Mechanical Ventilator 01/04/20 08:00 40 01/04/20 08:00 96 01/04/20 07:10 103 18 40 01/04/20 07:00 77 18 104/63 (77) 100 01/04/20 06:07 100 01/04/20 06:00 81 18 109/49 (69) 100 01/04/20 05:06 88 101/72 01/04/20 05:00 72 17 110/49 (69) 99 01/04/20 04:19 18 110/68 Mechanical Ventilator 40 01/04/20 04:00 88 01/04/20 04:00 40 01/04/20 04:00 99.0 92 18 101/72 (82) 98 01/04/20 04:00 Mechanical Ventilator 01/04/20 03:30 104 18 40 01/04/20 03:19 18 106/59 Mechanical Ventilator 40 01/04/20 03:00 79 18 120/69 (86) 98 ROS: unchanged from 12/12/19 HEENT: Orally intubated, Mechanically Ventilated, Thin secretions ET Tube, other - NGtube RHYTHM: NSR, ST LUNGS: diminished breath sounds, right-sided rhonchi CARDIAC: normal S1 and S2, irregularly irregular ABDOMEN: other - obese EXTREMITIES: moderate edema - mostly non pitting, other - hematoma right leg Laboratory Tests Test 01/04/20 04:00 01/04/20 20:44 White Blood Count 3.0 K/UL (4.8-10.8) L Red Blood Count 2.86 M/UL (4.20-5.40) L Hemoglobin 8.2 G/DL (12.0-16.0) L Hematocrit 25.8 % (37.0-47.0) L Mean Corpuscular Volume 90 FL (80-99) Mean Corpuscular Hemoglobin 28.6 PG (27.0-31.0) Mean Corpuscular Hemoglobin Concent 31.7 G/DL (32.0-36.0) L Red Cell Distribution Width 18.9 % (11.6-14.8) H Platelet Count 91 K/UL (150-450) L Mean Platelet Volume 6.7 FL (6.5-10.1) Neutrophils (%) (Auto) % (45.0-75.0) Lymphocytes (%) (Auto) % (20.0-45.0) Monocytes (%) (Auto) % (1.0-10.0) Eosinophils (%) (Auto) % (0.0-3.0) Basophils (%) (Auto) % (0.0-2.0) Arterial Blood pH 7.420 (7.350-7.450) Arterial Blood Partial Pressure CO2 52.4 mmHg (35.0-45.0) H Arterial Blood Partial Pressure O2 100.3 mmHg (75.0-100.0) H Arterial Blood HCO3 33.2 mmol/L (22.0-26.0) H Arterial Blood Oxygen Saturation 96.6 % (95-100) Arterial Blood Base Excess 7.8 (-2-2) H Eugene Test Positive Sodium Level 142 MMOL/L (136-145) Potassium Level 3.8 MMOL/L (3.5-5.1) Chloride Level 102 MMOL/L (98-107) Carbon Dioxide Level 35 MMOL/L (21-32) H Anion Gap 5 mmol/L (5-15) Blood Urea Nitrogen 68 mg/dL (7-18) H Creatinine 1.7 MG/DL (0.55-1.30) H Estimat Glomerular Filtration Rate 30.0 mL/min (>60) Glucose Level 88 MG/DL (74-106) Calcium Level 8.7 MG/DL (8.5-10.1) C-Reactive Protein, Quantitative 10.7 mg/dL (0.00-0.90) H POC Whole Blood Glucose Pending Assessment/Plan Assessment/Plan CRITICAL AND GUARDED Acute respiratory failure Acute on chronic respiratory acidosis AFiB with labile heart rates CHF, ac/chr diastolic BLE edema Sepsis with shock obesity COPD with bronchospasm Acute renal failure - worsening Pleural effusion GI bleeding Anemia - multifactorial Covid 19 PNA Hypokalemia Dehydration/hypernatremia Hypertension/HHD with labile BP Vent support Monitor acid/base parameters. Advance anti-HTN regimen. Transfuse PRBC's. Antimicrobials Titrate rate-control meds - hold digitalis for elevated levels. Maintain diltiazem and metoprolol. DC apixaban - hold anticoagulation due to GI bleeding; resume with GI clearance. Continued panel monitor Diuresis based on clinical parameters; trend BNP May need trach Potassium and free water suppl as needed Possible thorocentesis per pulmonary Agree with consideration for DNR Jerome Meek MD Jan 05, 2020 02:25
--- NOTE | 2020-01-05 03:00 | NUR ---
NURSE NOTES: Bedside assessment performed, assessed pt with a FLACC scale of 0 noted. RASS score of -1 noted however Fentanyl remains on hold r/t hemodynamic instability with SBP <100 noted. VS otherwise remain stable at this time. Bilateral soft wrist remains remains in place for patient safety. Pt provided with education but remains unable to comprehend and follow commands at this time. CMS remains intact and ROM exercises provided. Pt provided with a partial bed bath and oral care. Pt remains calm, comfortable, clean and dry. Pt repositioned for comfort and safety. Fall, Aspiration and Skin precautions observed. Pt remains resting in bed; Bed remains in the lowest position with the safety wheels engaged, call light within reach, side rails up x3 and bed alarm activated. Will continue plan of care. Will continue to monitor.
[2020-01-05] MEDS: Meropenem 1gm/NS 55ml IVPB SCH ×4 (03:58→15:30)
[2020-01-05 05:11] LABS: HEMATOCRIT 21.3 % (37.0-47.0); MEAN CORPUSCULAR VOLUME 88 FL (80-99); PLATELET COUNT 87 K/UL (150-450); RED BLOOD COUNT 2.42 M/UL (4.20-5.40); RED CELL DISTRIBUTION WIDTH 17.4 % (11.6-14.8); WHITE BLOOD COUNT 2.6 K/UL (4.8-10.8)
[2020-01-05] MEDS: dilTIAZem HCl 90mg tab NG SCH ×4 (05:15→23:19)
[2020-01-05] MEDS: NovoLOG Insulin Flexpen SUBQ SCH ×4 (05:27→23:19)
[2020-01-05] MEDS: Midazolam 2mg/2ml Inj IVP PRN ×5 (05:27→16:58)
[2020-01-05 05:41] LABS: CALCIUM 8.4 MG/DL (8.5-10.1); POTASSIUM 3.4 MMOL/L (3.5-5.1)
--- NOTE | 2020-01-05 06:09 | NUR ---
NURSE NOTES: Bedside assessment performed, assessed pt with a FLACC scale of 0 noted. RASS score of -1 noted however, Fentanyl remains on hold r/t hemodynamic instability. PRN Midazolam administered as ordered. No adverse effects noted at this time. Fall, Aspiration and Skin precautions observed. Pt remains resting in bed; Bed remains in the lowest position with the safety wheels engaged, call light within reach, side rails up x3 and bed alarm activated. Will continue plan of care. Will continue to monitor.
--- NOTE | 2020-01-05 07:30 | NUR ---
NURSE HAND-OFF REPORT: Latest Vital Signs: Temperature 99.5 , Pulse 160 , B/P 124 /111 , Respiratory Rate 26 , O2 SAT 93 , Mechanical Ventilator, O2 Flow Rate . Vital Sign Comment: EKG Rhythm: Atrial Fibrillation Rhythm change?: N Notified?: N Response: N/A Latest Abreu Fall Score: 75 Fall Risk: High Risk Safety Measures: Call light Within Reach, Bed Alarm Zone 2, Side Rails Side Rails x3, Bed position Low and Locked. Fall Precautions: Yellow Socks Report given to NOEL Walton. Endorsed plan of care.
--- NOTE | 2020-01-05 07:31 | NUR ---
NURSE NOTES: Received patient in bed. Orally intubated. Mechanical Ventilator Dependent. With ET size of 7.5, 24 cm lip line, AC mode of 18, Tidal Volume 600, FiO2 of 40%, PEEP of 5. Patient is agitated. Left Nare NGT noted, tube feeding held due to high residuals. Lockett cath inplace, with yellow urine noted in drainage bag by gravity. Left Upper arm PICC line noted, dressing remains dry and clean. Bilateral soft wrist restraints inplace. Airborne isolation precaution observed. Hep filter on. Will continue plan of care.
[2020-01-05] MEDS: Enoxaparin 60mg Inj SUBQ SCH (09:00)
[2020-01-05] MEDS: Docusate 100mg/10ml Liq NG SCH ×2 (09:00→17:26)
--- NOTE | 2020-01-05 09:00 | NUR ---
NURSE NOTES: Luz Bowen NP made aware of today's ABG results. Informed that FiO2 was increased from 40 to 60%.
--- NOTE | 2020-01-05 09:10 | NUR ---
NURSE NOTES: Luz Bowne NP at bedside. Informed that patient is not tolerating NGT feeding due to high residuals. With order obtained of reglan 5 mg IV push every 6 hrs.
[2020-01-05] MEDS: Pantoprazole Inj IVP SCH ×2 (09:21→20:06)
[2020-01-05] MEDS: Metoprolol Tartrate 50mg tab NG SCH ×2 (09:21→20:08)
[2020-01-05] MEDS: Metoclopramide 10mg/2ml Inj IVP SCH ×3 (09:22→20:07)
[2020-01-05] MEDS: Polymyxin B Sulfate 500,000 UNITS in D5W 500ml 550 ML IV SCH (09:22)
[2020-01-05] MEDS: Micafungin 100 MG in NS 110 ML IVPB SCH (09:22)
--- NOTE | 2020-01-05 10:11 | Pulmonolgy Critical Care Note ---
Luz Bowen ACID CONCENTRATOR 01/05/20 1011: Critical Care - Asmt/Plan Assessment/Plan: ASSESSMENT acute hypoxemic hypercapnic resp failure, requiring intubation 12/22 failure to wean COVID 19 PNA sepsis fungemia UTI with E coli ESBL UTI VRE possible aspiration PNA Moderate R pleural effusion COPD Bronchospasm Atrial fibrillation with rapid ventricular response Congestive heart failure Acute renal failure on CKD Severe anemia Probable GI bleeding Thrombocytopenia Status post ground fall Tobacco dependency Morbid obesity probably GARY Homeless R knee edema and hematoma, likely sprain /strain post fall PLAN OF CARE ICU intubated 12/22 MDI Albuterol in line with vent fup with CXR and ABG thoracentesis pending started on weaning trials with high PS settings as ordered, goal MV 10 tolerated 6 hrs 01/02, continue as tolerated, not tolerated 01/03 ABG this am with hypoxia, FiO2 increased to 60% fup with ABG in am CXR 01/03 no sign change off Fentanyl for now given low BP sedation with versed prn steroids IV ( started 12/23) continue for total of 10 days till 01/02 Remdesivir (started 12/24 ), dc 12/30 initial diagnoses with COVID 19 at [facility] 11/29, was not hypoxic and not intubated, was not treated with Remdesivivr , only received empiric abx for PNA sedation with Fentanyl gtt and versed prn - DVT prophylaxis with Lovenox prior Venous Duplex BLE -NGT COVID 19 by PCR 12/22 positive isolation IL 6 52 , initial CRP 15.6, ferritin 769, fup with inflammatory markers CRP 12/29 - down to 11.8 ; ferritin down to 503 CRP 01/03 -10.7 on diuresis with Lasix , monitor volumes closely creat remains stable rate control- per cardio recs: monitor volumes pro BNP trending down ECHO with pEF no evidence of WMA GI prophylaxis with PPI s/p Venofer x 2 s/p blood transfusion 12/25 monitor HH with goal to keep Hgb >7 s/p 1 u PRBC 01/01 GI procedure when stable monitor PLT counts renal US no hydro, BL nonobstructive stones s/p IV hydration, now resumed again per nephro monitor renal parameters, lytes , e/lyte management as per nephro recs creat stable UCX 12/11 + E coli ESBL, BCX 12/16 1/2 + yeast, fup with yeast ID, ? source BCX 12/17 NGTD BCX 12/22 and 12/24 NGTD UCX 12/16 VRE SCX 12/19 MRSA, ACB MDR now on meropenem , micafungin , Polymyxin , Zyvox ( completed 01/03) as per ID recs; cooling blanket prn fevers prior X ray R knee given fall 12/15 , large hematoma, swelling-no fx or dislocation ice R knee and elevate CT head no acute IC pathology fall precautions prior declined Nicotine patch discussion on weight loss if receptive - not at this time; anxious and wants to go home pain management anxiolytic prn SW consult for placement evaluated by bioethics -> DNR/DNI status appropriate given current critical condition , grave prognosis and multiple comorbidities, would recommend DNR/DNI status as well now DNR/DNI status case discussed and evaluated by supervising physician ivy mccarty for a consult! Critical Care - Objective Last 24 Hour Vital Signs Date Time Temp Pulse Resp B/P (MAP) Pulse Ox O2 Delivery O2 Flow Rate FiO2 01/05/20 09:21 147 114/52 01/05/20 09:00 95 18 94/52 (66) 100 01/05/20 08:25 60 01/05/20 08:18 60 01/05/20 08:00 94 01/05/20 08:00 Mechanical Ventilator 01/05/20 08:00 99.1 147 22 114/52 (72) 93 01/05/20 08:00 40 01/05/20 07:00 160 26 124/111 (115) 93 01/05/20 07:00 144 25 40 01/05/20 06:00 135 23 113/59 (77) 89 01/05/20 05:00 137 24 106/55 (72) 100 01/05/20 04:00 Mechanical Ventilator 01/05/20 04:00 99.5 81 18 97/56 (70) 100 01/05/20 04:00 40 01/05/20 03:17 69 18 40 01/05/20 03:01 78 01/05/20 03:00 77 18 95/59 (71) 96 01/05/20 02:00 74 18 91/53 (66) 100 01/05/20 01:00 74 18 87/47 (60) 97 01/05/20 00:30 83 18 86/55 (65) 100 01/05/20 00:15 88 22 60/32 (41) 98 01/05/20 00:15 18 60/32 Mechanical Ventilator 40 01/05/20 00:00 98.4 99 22 87/47 (60) 96 01/05/20 00:00 40 01/05/20 00:00 16 87/47 Mechanical Ventilator 40 01/05/20 00:00 Mechanical Ventilator 01/04/20 23:45 18 85/48 Mechanical Ventilator 40 01/04/20 23:45 80 14 85/48 (60) 99 01/04/20 23:42 67 18 40 01/04/20 23:31 18 101/47 Mechanical Ventilator 40 01/04/20 23:09 75 01/04/20 23:07 87 111/54 01/04/20 23:00 76 18 101/47 (65) 99 01/04/20 22:31 18 116/61 Mechanical Ventilator 40 01/04/20 22:00 80 18 116/61 (79) 93 01/04/20 21:35 18 109/62 Mechanical Ventilator 40 01/04/20 21:31 18 109/62 Mechanical Ventilator 40 01/04/20 21:00 84 18 109/62 (78) 94 01/04/20 20:35 112 136/69 01/04/20 20:31 22 116/60 Mechanical Ventilator 40 01/04/20 20:30 121 22 116/60 (78) 89 01/04/20 20:16 20 118/87 Mechanical Ventilator 40 01/04/20 20:15 109 20 118/87 (97) 84 01/04/20 20:01 18 118/80 Mechanical Ventilator 40 01/04/20 20:00 40 01/04/20 20:00 99.4 81 18 118/80 (93) 100 01/04/20 20:00 Mechanical Ventilator 01/04/20 19:53 96 24 40 01/04/20 19:19 77 01/04/20 19:01 18 118/57 Endotracheal Tube 40 01/04/20 19:00 89 18 118/57 (77) 01/04/20 18:49 99.9 01/04/20 18:46 19 115/61 Endotracheal Tube 40 01/04/20 18:45 102 19 115/61 (79) 98 01/04/20 18:31 18 92/54 Endotracheal Tube 40 01/04/20 18:30 108 19 92/54 (67) 100 01/04/20 18:16 18 100/58 Endotracheal Tube 40 01/04/20 18:01 22 131/56 Endotracheal Tube 40 01/04/20 18:00 147 19 131/56 (81) 96 01/04/20 17:46 26 110/89 Endotracheal Tube 40 01/04/20 17:31 51 89/110 Endotracheal Tube 40 01/04/20 17:30 88 108/64 (79) 99 01/04/20 17:26 89 110/51 01/04/20 17:15 82 110/51 (70) 01/04/20 17:00 99.9 89 97/58 (71) 01/04/20 16:45 84 94/57 (69) 01/04/20 16:30 88 96/53 (67) 01/04/20 16:00 Mechanical Ventilator 01/04/20 16:00 40 01/04/20 16:00 80 01/04/20 16:00 100.9 89 104/53 (70) 01/04/20 15:12 99 18 40 01/04/20 15:00 112 111/50 (70) 97 01/04/20 14:00 96 18 98/48 (65) 01/04/20 13:00 100 15 102/56 (71) 96 01/04/20 12:23 109 132/57 01/04/20 12:22 100.6 01/04/20 12:00 100.5 106 21 112/60 (77) 100 01/04/20 12:00 157 01/04/20 12:00 Mechanical Ventilator 01/04/20 12:00 40 01/04/20 11:51 120 26 40 01/04/20 11:00 107 18 107/67 (80) 99 Objective: CONDITION: critical General Appearance: morbidly obese , sedated, on vent AC 600-18-60% PEEP 5 Lines, tubes and drains: LUE PICC new , intact HEENT: normocephalic, atraumatic, anicteric, NGT in , OP with ET Neck: non-tender Respiratory/Chest: chest wall non-tender, no accessory muscle use, scattered rhonchi Cardiovascular/Chest: irregularly irregular - A fib , tachy at times , distant heart sounds, Abdomen: normal bowel sounds, non tender , obese, soft : Lockett Extremities: no calf tenderness, moderate edema - +3 BLE, R knee with large hematoma, edema, Skin Exam: warm/dry, multiple tattoos Neurologic: sedated Musculoskeletal: normal muscle bulk Accucheck: 103 Critical Care - Subjective ROS Limited/Unobtainable: Yes Interval Events: fevers yesterday afternoon, leukopenic not tolerated weaning yesterday this am ABG with hypoxia, FiOI2 increased to 60% Hgb down to 7 remains in A fib, intermittent tachy BP low, off Fentanyl gtt for now Condition: critical IV Access: PICC - LUE PICC intact EKG Rhythm: Atrial Fibrillation FI02: 60 Vent Support Breath Rate: 18 Vent Support Mode: AC Vent Tidal Volume: 600 Sputum Amount: Moderate - mod amount, meléndez color, thick consistency PEEP: 5.0 PIP: 31 Tube Feeding Amount: 20 I&O: Intake and Output 01/04/20 01/05/20 19:00 07:00 Intake Total 1018.75 ml 840.60 ml Output Total 530 ml 325 ml Balance 488.75 ml 515.60 ml Free Water 90 ml IV Total 1018.75 ml 750.60 ml Output Urine Total 530 ml 325 ml CXR: CXR 01/03 -Bilateral interstitial and airspace congestion, right pleural effusion, cardiomegaly persists, unchanged. Tube and line positions are unchanged ET-Tube: 7.5 ET Position: 24 Igor Carpio MD 01/05/20 1148: Critical Care - Asmt/Plan Assessment/Plan: Patient seen and examined with ACID CONCENTRATOR. Agree with above A&P as it reflects our joint deliberations. Failed SBT, agree with inc diuresis, will d/w radiology on tuesday Re: thora. Will need to make a determination Re: tracheostomy in the next few days. CCT 40 Time Spent (Minutes): 40 - Notes Reviewed: stunner and shackler, cardio, renal, ID, GI Discussed with: nurses, consultants Luz Bowen NP Jan 05, 2020 10:11 Igor Carpio MD Jan 05, 2020 11:48
[2020-01-05] MEDS: Bacitracin Oint 15gm Tube TOPIC SCH ×2 (10:40→20:07)
--- NOTE | 2020-01-05 11:03 | NUR ---
NURSE NOTES: Dr. Dumont in the unit. Informed regarding today's hemoglobin level of 7.0, and potassium level of 3.4, and today's ABG results. MD said he will check patient's chart, and to keep patient DNR for now. will have another bioethics meeting next week.
--- NOTE | 2020-01-05 11:10 | General Progress Note ---
Subjective ROS Limited/Unobtainable: Yes Allergies: Coded Allergies: ERYTHROMYCIN BASE (Verified Allergy, Severe, 12/12/19) HALOPERIDOL (Verified Allergy, Unknown, 12/12/19) VANCOMYCIN (Unverified Adverse Reaction, Intermediate, Shortness of Breath, 12/12/19) Objective Last 24 Hour Vital Signs Date Time Temp Pulse Resp B/P (MAP) Pulse Ox O2 Delivery O2 Flow Rate FiO2 01/05/20 10:00 99 17 106/62 (77) 100 01/05/20 09:21 147 114/52 01/05/20 09:00 95 18 94/52 (66) 100 01/05/20 08:25 60 01/05/20 08:18 60 01/05/20 08:00 94 01/05/20 08:00 Mechanical Ventilator 01/05/20 08:00 99.1 147 22 114/52 (72) 93 01/05/20 08:00 40 01/05/20 07:00 160 26 124/111 (115) 93 01/05/20 07:00 144 25 40 01/05/20 06:00 135 23 113/59 (77) 89 01/05/20 05:00 137 24 106/55 (72) 100 01/05/20 04:00 Mechanical Ventilator 01/05/20 04:00 99.5 81 18 97/56 (70) 100 01/05/20 04:00 40 01/05/20 03:17 69 18 40 01/05/20 03:01 78 01/05/20 03:00 77 18 95/59 (71) 96 01/05/20 02:00 74 18 91/53 (66) 100 01/05/20 01:00 74 18 87/47 (60) 97 01/05/20 00:30 83 18 86/55 (65) 100 01/05/20 00:15 88 22 60/32 (41) 98 01/05/20 00:15 18 60/32 Mechanical Ventilator 40 01/05/20 00:00 98.4 99 22 87/47 (60) 96 01/05/20 00:00 40 01/05/20 00:00 16 87/47 Mechanical Ventilator 40 01/05/20 00:00 Mechanical Ventilator 01/04/20 23:45 18 85/48 Mechanical Ventilator 40 01/04/20 23:45 80 14 85/48 (60) 99 01/04/20 23:42 67 18 40 01/04/20 23:31 18 101/47 Mechanical Ventilator 40 01/04/20 23:09 75 01/04/20 23:07 87 111/54 01/04/20 23:00 76 18 101/47 (65) 99 01/04/20 22:31 18 116/61 Mechanical Ventilator 40 01/04/20 22:00 80 18 116/61 (79) 93 01/04/20 21:35 18 109/62 Mechanical Ventilator 40 01/04/20 21:31 18 109/62 Mechanical Ventilator 40 01/04/20 21:00 84 18 109/62 (78) 94 01/04/20 20:35 112 136/69 01/04/20 20:31 22 116/60 Mechanical Ventilator 40 01/04/20 20:30 121 22 116/60 (78) 89 01/04/20 20:16 20 118/87 Mechanical Ventilator 40 01/04/20 20:15 109 20 118/87 (97) 84 01/04/20 20:01 18 118/80 Mechanical Ventilator 40 01/04/20 20:00 40 01/04/20 20:00 99.4 81 18 118/80 (93) 100 01/04/20 20:00 Mechanical Ventilator 01/04/20 19:53 96 24 40 01/04/20 19:19 77 01/04/20 19:01 18 118/57 Endotracheal Tube 40 01/04/20 19:00 89 18 118/57 (77) 01/04/20 18:49 99.9 01/04/20 18:46 19 115/61 Endotracheal Tube 40 01/04/20 18:45 102 19 115/61 (79) 98 01/04/20 18:31 18 92/54 Endotracheal Tube 40 01/04/20 18:30 108 19 92/54 (67) 100 01/04/20 18:16 18 100/58 Endotracheal Tube 40 01/04/20 18:01 22 131/56 Endotracheal Tube 40 01/04/20 18:00 147 19 131/56 (81) 96 01/04/20 17:46 26 110/89 Endotracheal Tube 40 01/04/20 17:31 51 89/110 Endotracheal Tube 40 01/04/20 17:30 88 108/64 (79) 99 01/04/20 17:26 89 110/51 01/04/20 17:15 82 110/51 (70) 01/04/20 17:00 99.9 89 97/58 (71) 01/04/20 16:45 84 94/57 (69) 01/04/20 16:30 88 96/53 (67) 01/04/20 16:00 Mechanical Ventilator 01/04/20 16:00 40 01/04/20 16:00 80 01/04/20 16:00 100.9 89 104/53 (70) 01/04/20 15:12 99 18 40 01/04/20 15:00 112 111/50 (70) 97 01/04/20 14:00 96 18 98/48 (65) 01/04/20 13:00 100 15 102/56 (71) 96 01/04/20 12:23 109 132/57 01/04/20 12:22 100.6 01/04/20 12:00 100.5 106 21 112/60 (77) 100 01/04/20 12:00 157 01/04/20 12:00 Mechanical Ventilator 01/04/20 12:00 40 01/04/20 11:51 120 26 40 Intake and Output 01/04/20 01/05/20 19:00 07:00 Intake Total 1018.75 ml 840.60 ml Output Total 530 ml 325 ml Balance 488.75 ml 515.60 ml Free Water 90 ml IV Total 1018.75 ml 750.60 ml Output Urine Total 530 ml 325 ml Laboratory Tests 01/04/20 20:44: POC Whole Blood Glucose [Pending] 01/05/20 04:00: White Blood Count 2.6L, Red Blood Count 2.42L, Hemoglobin 7.0L, Hematocrit 21.3L , Mean Corpuscular Volume 88, Mean Corpuscular Hemoglobin 28.9, Mean Corpuscular Hemoglobin Concent 32.8, Red Cell Distribution Width 17.4H, Platelet Count 87L, Mean Platelet Volume 7.1, Neutrophils (%) (Auto) , Lymphocytes (%) (Auto) , Monocytes (%) (Auto) , Eosinophils (%) (Auto) , Basophils (%) (Auto) , Different ial Total Cells Counted 100, Neutrophils % (Manual) 54, Lymphocytes % (Manual) 40, Monocytes % (Manual) 5, Eosinophils % (Manual) 1, Basophils % (Manual) 0, Band Neutrophils 0, Platelet Estimate DecreasedL, Platelet Morphology Normal, Hypochromasia 3+, Anisocytosis 1+, Spherocytes 2+, Sodium Level 138, Potassium Level 3.4L, Chloride Level 100, Carbon Dioxide Level 35H, Anion Gap 4L, Blood Urea Nitrogen 77H, Creatinine 2.0H, Estimat Glomerular Filtration Rate 24.9, Glucose Level 100, Calcium Level 8.4L 01/05/20 05:22: POC Whole Blood Glucose 103 01/05/20 07:42: Arterial Blood pH 7.376, Arterial Blood Partial Pressure CO2 54.9H, Arterial Blood Partial Pressure O2 68.1L, Arterial Blood HCO3 31.5H, Arterial Blood Oxygen Saturation 90.9L, Arterial Blood Base Excess 5.4H, Eugene Test Positive Height (Feet): 5 Height (Inches): 6.00 Weight (Pounds): 298 General Appearance: morbidly obese, other - sedated, vent Neck: normal inspection Cardiovascular: regularly irregular Respiratory/Chest: rhonchi - bilaterally Abdomen: non tender Edema: moderate edema Neurologic: unresponsive Assessment/Plan Problem List: (1) Schizophrenia ICD Codes: F20.9 - Schizophrenia, unspecified SNOMED: 46483195 (2) GERD (gastroesophageal reflux disease) ICD Codes: K21.9 - Gastro-esophageal reflux disease without esophagitis SNOMED: 785414499 (3) Lymphadema (4) Smoker ICD Codes: F17.200 - Nicotine dependence, unspecified, uncomplicated SNOMED: 87421850 (5) Atrial fibrillation with rapid ventricular response ICD Codes: I48.91 - Unspecified atrial fibrillation SNOMED: 312474779377575 (6) CKD (chronic kidney disease) stage 3, GFR 30-59 ml/min ICD Codes: N18.3 - Chronic kidney disease, stage 3 (moderate) SNOMED: 189727332 (7) NATALIE (acute kidney injury) ICD Codes: N17.9 - Acute kidney failure, unspecified SNOMED: 5606410, 89765406 (8) COPD (chronic obstructive pulmonary disease) ICD Codes: J44.9 - Chronic obstructive pulmonary disease, unspecified SNOMED: 06689103 (9) UGI bleed ICD Codes: K92.2 - Gastrointestinal hemorrhage, unspecified SNOMED: 59106377 (10) Dysphagia ICD Codes: R13.10 - Dysphagia, unspecified SNOMED: 33868767, 039730946 (11) UTI (urinary tract infection) ICD Codes: N39.0 - Urinary tract infection, site not specified SNOMED: 56805066 (12) ESBL (extended spectrum beta-lactamase) producing bacteria infection ICD Codes: A49.9 - Bacterial infection, unspecified; Z16.12 - Extended spectrum beta lactamase (ESBL) resistance SNOMED: 822333685 (13) Dehydration ICD Codes: E86.0 - Dehydration SNOMED: 41647818 (14) CHF exacerbation ICD Codes: I50.9 - Heart failure, unspecified SNOMED: 671831958, 73133563248513 (15) Acute respiratory failure ICD Codes: J96.00 - Acute respiratory failure, unspecified whether with hypoxia or hypercapnia SNOMED: 98825229 (16) COVID-19 ICD Codes: U07.1 - COVID-19 SNOMED: 244132130 (17) Pneumonia ICD Codes: J18.9 - Pneumonia, unspecified organism SNOMED: 677698289 Qualifiers: (18) Hematoma of lower leg ICD Codes: S80.10XA - Contusion of unspecified lower leg, initial encounter SNOMED: 034123976 (19) CKD (chronic kidney disease) stage 3, GFR 30-59 ml/min ICD Codes: N18.3 - Chronic kidney disease, stage 3 (moderate) SNOMED: 944638146 Status: stable Assessment/Plan: resp distress, icu, now intubated, natalie on ckd,,now stable, I/O, ,+hematoma RLE stop eliquis ancd asa, lovenox now iv protonix, rx esbl and + vre uti,g+ cocci linezolid , remains high risk, d/w psych, ID, cardiology, chf and on lasix ,covid neg prior now +, grave prognosis, fungemia on micafungin likely will be unable to wean for a long time, agitated when tried to wean and had apnea 01/01, cpap trial 01/02 + had distress/tachycardia , ,all lab and orders reviewed , no active bleeding , low Hb to start venofer, replace K, increase lasix for chf icu time 35 min Benjamin Dumont MD Jan 05, 2020 11:10
--- NOTE | 2020-01-05 11:10 | NUR ---
NURSE NOTES: Dr. Dumont said that he will not order blood transfusion today. Will continue to monitor patient.
--- NOTE | 2020-01-05 11:36 | NUR ---
NURSE NOTES: Patient appears calm, versed IV 2mg given for agitation at 1036.
--- NOTE | 2020-01-05 12:00 | NUR ---
NURSE NOTES: Dr. Carpio in the unit. He said to prepare the kit for thoracentesis. He is planning to do procedure at bedside tomorrow. Charge nurse made aware.
[2020-01-05] MEDS: Acetaminophen 650mg/20.3ml NG PRN (12:32)
--- NOTE | 2020-01-05 14:19 | NUR ---
CASE MANAGEMENT:REVIEW 01/05/20 SI: COVID PNA DESATURATED TO 89% FIO2 INCREASED FROM 40% TO 60% 99.5 160 26 97/56 100% ON VENT SUPPORT W/60% FIO2 WBC-2.6 H/H-7.0/21.3 PLT-87 BUN+77 CR+2.0 IS: IV MEROPENEM Q12 IV DOXYCYCLINE Q12 IV LINEZOLID Q12 IV LASIX Q6 IV POLYMYXIN Q12 IV MICAFUNGIN Q24 LOVENOX SQ QD CARDIZEM NG Q6HRS DIAMOX NG BID : ICU STATUS NOTE: OXYGEN INCREASED FROM 40 TO 60% LASIX FREQUENCY INCREASED FROM Q12 TO Q6 DC LINEZOLID
--- NOTE | 2020-01-05 16:29 | NUR ---
NURSE NOTES: Patient appears calm, versed IV 2mg given for agitation at 1529.
--- NOTE | 2020-01-05 16:40 | General Progress Note ---
Subjective Allergies: Coded Allergies: ERYTHROMYCIN BASE (Verified Allergy, Severe, 12/12/19) HALOPERIDOL (Verified Allergy, Unknown, 12/12/19) VANCOMYCIN (Unverified Adverse Reaction, Intermediate, Shortness of Breath, 12/12/19) Subjective above noted patient seen in ICU d/w RN Residuals noted at 120cc Reglan started IV at Cr adjusted dose Objective Last 24 Hour Vital Signs Date Time Temp Pulse Resp B/P (MAP) Pulse Ox O2 Delivery O2 Flow Rate FiO2 01/05/20 16:00 60 01/05/20 16:00 98.0 91 18 98/57 (71) 100 01/05/20 16:00 Mechanical Ventilator 01/05/20 15:46 122 01/05/20 15:00 85 19 111/61 (78) 01/05/20 14:00 99 14 108/60 (76) 100 01/05/20 13:00 119 23 118/67 (84) 99 01/05/20 12:32 94 104/61 01/05/20 12:00 98.8 95 18 110/64 (79) 100 01/05/20 12:00 Mechanical Ventilator 01/05/20 11:52 94 01/05/20 11:00 90 21 104/61 (75) 100 01/05/20 10:00 99 17 106/62 (77) 100 01/05/20 09:21 147 114/52 01/05/20 09:00 95 18 94/52 (66) 100 01/05/20 08:25 60 01/05/20 08:18 60 01/05/20 08:00 94 01/05/20 08:00 Mechanical Ventilator 01/05/20 08:00 99.1 147 22 114/52 (72) 93 01/05/20 08:00 40 01/05/20 07:00 160 26 124/111 (115) 93 01/05/20 07:00 144 25 40 01/05/20 06:00 135 23 113/59 (77) 89 01/05/20 05:00 137 24 106/55 (72) 100 01/05/20 04:00 Mechanical Ventilator 01/05/20 04:00 99.5 81 18 97/56 (70) 100 01/05/20 04:00 40 01/05/20 03:17 69 18 40 01/05/20 03:01 78 01/05/20 03:00 77 18 95/59 (71) 96 01/05/20 02:00 74 18 91/53 (66) 100 01/05/20 01:00 74 18 87/47 (60) 97 01/05/20 00:30 83 18 86/55 (65) 100 01/05/20 00:15 88 22 60/32 (41) 98 01/05/20 00:15 18 60/32 Mechanical Ventilator 40 01/05/20 00:00 98.4 99 22 87/47 (60) 96 01/05/20 00:00 40 01/05/20 00:00 16 87/47 Mechanical Ventilator 40 01/05/20 00:00 Mechanical Ventilator 01/04/20 23:45 18 85/48 Mechanical Ventilator 40 01/04/20 23:45 80 14 85/48 (60) 99 01/04/20 23:42 67 18 40 01/04/20 23:31 18 101/47 Mechanical Ventilator 40 01/04/20 23:09 75 01/04/20 23:07 87 111/54 01/04/20 23:00 76 18 101/47 (65) 99 01/04/20 22:31 18 116/61 Mechanical Ventilator 40 01/04/20 22:00 80 18 116/61 (79) 93 01/04/20 21:35 18 109/62 Mechanical Ventilator 40 01/04/20 21:31 18 109/62 Mechanical Ventilator 40 01/04/20 21:00 84 18 109/62 (78) 94 01/04/20 20:35 112 136/69 01/04/20 20:31 22 116/60 Mechanical Ventilator 40 01/04/20 20:30 121 22 116/60 (78) 89 01/04/20 20:16 20 118/87 Mechanical Ventilator 40 01/04/20 20:15 109 20 118/87 (97) 84 01/04/20 20:01 18 118/80 Mechanical Ventilator 40 01/04/20 20:00 40 01/04/20 20:00 99.4 81 18 118/80 (93) 100 01/04/20 20:00 Mechanical Ventilator 01/04/20 19:53 96 24 40 01/04/20 19:19 77 01/04/20 19:01 18 118/57 Endotracheal Tube 40 01/04/20 19:00 89 18 118/57 (77) 01/04/20 18:49 99.9 01/04/20 18:46 19 115/61 Endotracheal Tube 40 01/04/20 18:45 102 19 115/61 (79) 98 01/04/20 18:31 18 92/54 Endotracheal Tube 40 01/04/20 18:30 108 19 92/54 (67) 100 01/04/20 18:16 18 100/58 Endotracheal Tube 40 01/04/20 18:01 22 131/56 Endotracheal Tube 40 01/04/20 18:00 147 19 131/56 (81) 96 01/04/20 17:46 26 110/89 Endotracheal Tube 40 01/04/20 17:31 51 89/110 Endotracheal Tube 40 01/04/20 17:30 88 108/64 (79) 99 01/04/20 17:26 89 110/51 01/04/20 17:15 82 110/51 (70) 01/04/20 17:00 99.9 89 97/58 (71) 01/04/20 16:45 84 94/57 (69) Intake and Output 01/04/20 01/05/20 19:00 07:00 Intake Total 1018.75 ml 840.60 ml Output Total 530 ml 325 ml Balance 488.75 ml 515.60 ml Free Water 90 ml IV Total 1018.75 ml 750.60 ml Output Urine Total 530 ml 325 ml Laboratory Tests 01/04/20 20:44: POC Whole Blood Glucose [Pending] 01/05/20 04:00: White Blood Count 2.6L, Red Blood Count 2.42L, Hemoglobin 7.0L, Hematocrit 21.3L , Mean Corpuscular Volume 88, Mean Corpuscular Hemoglobin 28.9, Mean Corpuscular Hemoglobin Concent 32.8, Red Cell Distribution Width 17.4H, Platelet Count 87L, Mean Platelet Volume 7.1, Neutrophils (%) (Auto) , Lymphocytes (%) (Auto) , Monocytes (%) (Auto) , Eosinophils (%) (Auto) , Basophils (%) (Auto) , Differential Total Cells Counted 100, Neutrophils % (Manual) 54, Lymphocytes % (Manual) 40, Monocytes % (Manual) 5, Eosinophils % (Manual) 1, Basophils % (Manual) 0, Band Neutrophils 0, Platelet Estimate DecreasedL, Platelet Morphology Normal, Hypochromasia 3+, Anisocytosis 1+, Spherocytes 2+, Sodium Level 138, Potassium Level 3.4L, Chloride Level 100, Carbon Dioxide Level 35H, Anion Gap 4L, Blood Urea Nitrogen 77H, Creatinine 2.0H, Estimat Glomerular Filtration Rate 24.9, Glucose Level 100, Calcium Level 8.4L 01/05/20 05:22: POC Whole Blood Glucose 103 01/05/20 07:42: Arterial Blood pH 7.376, Arterial Blood Partial Pressure CO2 54.9H, Arterial Blood Partial Pressure O2 68.1L, Arterial Blood HCO3 31.5H, Arterial Blood Oxygen Saturation 90.9L, Arterial Blood Base Excess 5.4H, Eugene Test Positive Height (Feet): 5 Height (Inches): 6.00 Weight (Pounds): 298 Objective Obese WW Resting comfortably NCAT Intubated (+) NGT Chest coarse BS CV RR abd obese soft no edema Assessment/Plan Status: stable Assessment/Plan: Assessment/Plan Problem List: (1) CKD (chronic kidney disease) stage 3, GFR 30-59 ml/min ICD Codes: N18.3 - Chronic kidney disease, stage 3 (moderate) SNOMED: 345143652 (2) COPD / Respiratory failure ICD Codes: J44.9 - Chronic obstructive pulmonary disease, unspecified SNOMED: 14388178 (3) Smoker ICD Codes: F17.200 - Nicotine dependence, unspecified, uncomplicated SNOMED: 08999119 (4) GERD (gastroesophageal reflux disease) ICD Codes: K21.9 - Gastro-esophageal reflux disease without esophagitis SNOMED: 899309457 (5) Atrial fibrillation with RVR ICD Codes: I48.91 - Unspecified atrial fibrillation SNOMED: 916166621421293 (6) TF intolerance Assessment/Plan: Dysphagia --> s/p ngt placement ppi bid fu H&H monitor labs bowel regimen needs clearance for GI procedures NGTF on Lovenox IV Antoine Rosas MD Jan 05, 2020 16:40
[2020-01-05] MEDS: fentaNYL 2500mcg/NS 250ml 250 ML IV SCH (17:30)
--- NOTE | 2020-01-05 17:58 | NUR ---
NURSE NOTES: Patient appears calm, versed IV 2mg given for agitation at 1658.
--- NOTE | 2020-01-05 19:10 | NUR ---
NURSE HAND-OFF REPORT: Latest Vital Signs: Temperature 98.0 , Pulse 92 , B/P 97 /57 , Respiratory Rate 18 , O2 SAT 100 , Mechanical Ventilator, O2 Flow Rate . EKG Rhythm: Atrial Fibrillation Rhythm change?: N Latest Abreu Fall Score: 75 Fall Risk: High Risk Safety Measures: Call light Within Reach, Bed Alarm Zone 2, Side Rails Side Rails x3, Bed position Low and Locked. Fall Precautions: Yellow Socks Airborne isolation endorsed. Report given to Jaden Malave RN.
--- NOTE | 2020-01-05 20:00 | NUR ---
NURSE NOTES: Received patient and report from NOEL Walton. Patient is observed resting in bed and remains lethargic, No pain noted upon assessment. Pt is orally intubated ett size 7.5 and noted to be 24 @ lip. Pt appears to be tolerating current vent settings well, vent settings as follows: AC 18, TV 600 FiO2 50% PEEP 5 with an O2 saturation of 98% noted at this time. Bilateral lower lobe breath sounds noted to be diminished upon auscultation. Pt noted to be AFib on tele monitor with a HR of 94 with no s/sx of acute cardiac distress noted. Left upper arm PICC line noted which remains asymptomatic, intact and patent. Central line dressing remains clean, dry and intact. VS obtained and noted to be stable at this time. NG tube noted to the L nare which remains secured, intact, and patent. GT feeding Glucerna 1.5 at 45ml/hr. Active bowel sounds noted in all four quadrants; abdomen remains large, round and soft. Lockett catheter noted and draining to gravity with yellow urine in collection bag. Diagnostics reviewed at bedside. Skin alterations noted. Fall, Aspiration, Seizure and Skin precautions observed. Pt remains resting in bed; Bed remains in the lowest position with the safety wheels engaged, call light within reach, side rails up x3 and bed alarm activated. Will continue plan of care. Will continue to monitor.
[2020-01-05] MEDS: Dyna-Hex 2% Top Sol 2oz TOPIC SCH (20:06)
--- NOTE | 2020-01-05 20:06 | Surgery Progress Note ---
Surgery Progress Note Subjective Additional Comments ill appearing no n/v leg stable on support agitated Objective Last 24 Hour Vital Signs Date Time Temp Pulse Resp B/P (MAP) Pulse Ox O2 Delivery O2 Flow Rate FiO2 01/05/20 19:00 92 18 97/57 (70) 100 01/05/20 18:00 97 18 107/64 (78) 100 01/05/20 17:26 81 96/57 01/05/20 17:00 88 20 96/57 (70) 100 01/05/20 17:00 81 19 96/57 (70) 100 01/05/20 16:00 60 01/05/20 16:00 98.0 91 18 98/57 (71) 100 01/05/20 16:00 Mechanical Ventilator 01/05/20 15:46 122 01/05/20 15:00 85 19 111/61 (78) 01/05/20 15:00 107 18 60 01/05/20 14:00 99 14 108/60 (76) 100 01/05/20 13:00 119 23 118/67 (84) 99 01/05/20 12:32 94 104/61 01/05/20 12:00 98.8 95 18 110/64 (79) 100 01/05/20 12:00 Mechanical Ventilator 01/05/20 11:52 94 01/05/20 11:00 90 21 104/61 (75) 100 01/05/20 11:00 90 16 60 01/05/20 10:00 99 17 106/62 (77) 100 01/05/20 09:21 147 114/52 01/05/20 09:00 95 18 94/52 (66) 100 01/05/20 08:25 60 01/05/20 08:18 60 01/05/20 08:00 94 01/05/20 08:00 Mechanical Ventilator 01/05/20 08:00 99.1 147 22 114/52 (72) 93 01/05/20 08:00 40 01/05/20 07:00 160 26 124/111 (115) 93 01/05/20 07:00 144 25 40 01/05/20 06:00 135 23 113/59 (77) 89 01/05/20 05:00 137 24 106/55 (72) 100 01/05/20 04:00 Mechanical Ventilator 01/05/20 04:00 99.5 81 18 97/56 (70) 100 01/05/20 04:00 40 01/05/20 03:17 69 18 40 01/05/20 03:01 78 01/05/20 03:00 77 18 95/59 (71) 96 01/05/20 02:00 74 18 91/53 (66) 100 01/05/20 01:00 74 18 87/47 (60) 97 01/05/20 00:30 83 18 86/55 (65) 100 01/05/20 00:15 88 22 60/32 (41) 98 01/05/20 00:15 18 60/32 Mechanical Ventilator 40 01/05/20 00:00 98.4 99 22 87/47 (60) 96 01/05/20 00:00 40 01/05/20 00:00 16 87/47 Mechanical Ventilator 40 01/05/20 00:00 Mechanical Ventilator 01/04/20 23:45 18 85/48 Mechanical Ventilator 40 01/04/20 23:45 80 14 85/48 (60) 99 01/04/20 23:42 67 18 40 01/04/20 23:31 18 101/47 Mechanical Ventilator 40 01/04/20 23:09 75 01/04/20 23:07 87 111/54 01/04/20 23:00 76 18 101/47 (65) 99 01/04/20 22:31 18 116/61 Mechanical Ventilator 40 01/04/20 22:00 80 18 116/61 (79) 93 01/04/20 21:35 18 109/62 Mechanical Ventilator 40 01/04/20 21:31 18 109/62 Mechanical Ventilator 40 01/04/20 21:00 84 18 109/62 (78) 94 01/04/20 20:35 112 136/69 01/04/20 20:31 22 116/60 Mechanical Ventilator 40 01/04/20 20:30 121 22 116/60 (78) 89 01/04/20 20:16 20 118/87 Mechanical Ventilator 40 01/04/20 20:15 109 20 118/87 (97) 84 I&O Intake and Output 01/04/20 01/05/20 19:00 07:00 Intake Total 1018.75 ml 840.60 ml Output Total 530 ml 325 ml Balance 488.75 ml 515.60 ml Free Water 90 ml IV Total 1018.75 ml 750.60 ml Output Urine Total 530 ml 325 ml Dressing: saturated Cardiovascular: RSR Respiratory: decreased breath sounds Abdomen: non-tender, present bowel sounds Extremities: edema, cyanosis, other Laboratory Tests Test 01/04/20 20:44 01/05/20 04:00 01/05/20 05:22 01/05/20 07:42 POC Whole Blood Glucose Pending 103 MG/DL (74-106) White Blood Count 2.6 K/UL (4.8-10.8) L Red Blood Count 2.42 M/UL (4.20-5.40) L Hemoglobin 7.0 G/DL (12.0-16.0) L Hematocrit 21.3 % (37.0-47.0) L Mean Corpuscular Volume 88 FL (80-99) Mean Corpuscular Hemoglobin 28.9 PG (27.0-31.0) Mean Corpuscular Hemoglobin Concent 32.8 G/DL (32.0-36.0) Red Cell Distribution Width 17.4 % (11.6-14.8) H Platelet Count 87 K/UL (150-450) L Mean Platelet Volume 7.1 FL (6.5-10.1) Neutrophils (%) (Auto) % (45.0-75.0) Lymphocytes (%) (Auto) % (20.0-45.0) Monocytes (%) (Auto) % (1.0-10.0) Eosinophils (%) (Auto) % (0.0-3.0) Basophils (%) (Auto) % (0.0-2.0) Differential Total Cells Counted 100 Neutrophils % (Manual) 54 % (45-75) Lymphocytes % (Manual) 40 % (20-45) Monocytes % (Manual) 5 % (1-10) Eosinophils % (Manual) 1 % (0-3) Basophils % (Manual) 0 % (0-2) Band Neutrophils 0 % (0-8) Platelet Estimate Decreased L Platelet Morphology Normal Hypochromasia 3+ Anisocytosis 1+ Spherocytes 2+ Sodium Level 138 MMOL/L (136-145) Potassium Level 3.4 MMOL/L (3.5-5.1) L Chloride Level 100 MMOL/L (98-107) Carbon Dioxide Level 35 MMOL/L (21-32) H Anion Gap 4 mmol/L (5-15) L Blood Urea Nitrogen 77 mg/dL (7-18) H Creatinine 2.0 MG/DL (0.55-1.30) H Estimat Glomerular Filtration Rate 24.9 mL/min (>60) Glucose Level 100 MG/DL (74-106) Calcium Level 8.4 MG/DL (8.5-10.1) L Arterial Blood pH 7.376 (7.350-7.450) Arterial Blood Partial Pressure CO2 54.9 mmHg (35.0-45.0) H Arterial Blood Partial Pressure O2 68.1 mmHg (75.0-100.0) L Arterial Blood HCO3 31.5 mmol/L (22.0-26.0) H Arterial Blood Oxygen Saturation 90.9 % (95-100) L Arterial Blood Base Excess 5.4 (-2-2) H Eugene Test Positive Test 01/05/20 12:46 01/05/20 17:18 POC Whole Blood Glucose 111 MG/DL (74-106) H 100 MG/DL (74-106) Plan Problems: (1) Urinary tract infection (2) CHF exacerbation (3) History of schizophrenia (4) Atrial fibrillation with RVR (5) Schizophrenia (6) GERD (gastroesophageal reflux disease) (7) Smoker (8) Atrial fibrillation with rapid ventricular response (9) Lymphadema (10) COPD (chronic obstructive pulmonary disease) (11) CKD (chronic kidney disease) stage 3, GFR 30-59 ml/min (12) NATALIE (acute kidney injury) (13) Dehydration (14) Dysphagia (15) UTI (urinary tract infection) (16) UGI bleed (17) ESBL (extended spectrum beta-lactamase) producing bacteria infection (18) Constipation (19) Lactic acidosis (20) Tinea cruris (21) Onychomycosis (22) Emesis (23) Essential hypertension (24) Anemia (25) Cough (26) Depression (27) Depression (28) Edema (29) Rash (30) Opiate dependence (31) Opiate dependence (32) Opiate dependence (33) Opiate dependence (34) Pyelonephritis (35) Sepsis (36) UTI (urinary tract infection) (37) Nausea and vomiting (38) Abdominal pain Assessment & Plan: [age]-year-old female obese white abdominal pain deep tissue injury identified limited mobility on HD. KUB noted tube in place continue meds feeds Does not seem obstructed We will monitor lines noted. plan change resume tube feeds labs okay FINDINGS: Lower thorax: Obscuration of the left costophrenic angle suggestive of pleural effusion. Intraperitoneal space: No free air. Gastrointestinal tract: Unremarkable. No dilation. Bones/joints: Unremarkable. Tubes, lines and devices: The nasogastric tube has the tip at the mid inferior aspect of the gastric body. Other findings: Nonspecific gas pattern. Single frontal view of the abdomen demonstrates tip of the enteric tube and distal side-port projecting over the stomach. Gas is identified within the nondistended large bowel. There is a paucity of small bowel gas seen. Partially visualized left pleural effusion. No other significant interval change. (39) Chest pain (40) Chest pain (41) Nausea (42) Obesity (43) Chronic ulcer of leg (44) Chronic ulcer of leg (45) Chronic ulcer of leg (46) ACS (acute coronary syndrome) (47) Acute chest pain (48) Encounter for dressing change or suture removal (49) Left leg cellulitis (50) Acute encephalopathy (51) Encounter for wound re-check (52) Intractable nausea and vomiting (53) Infection due to ESBL-producing Escherichia coli (54) Chronic venous stasis (55) Change of dressing (56) Change of dressing (57) Change of dressing (58) Change of dressing (59) Change of dressing (60) Change of dressing (61) Change of dressing (62) Change of dressing (63) ESBL urine (64) Lymphadema (65) Lymphedema (66) Lymphedema (67) Lymphedema (68) Lymphedema (69) Lymphedema (70) Lymphedema (71) Lymphedema (72) Lymphedema (73) Open wound of foot (74) Open wound of foot (75) cellulitis (76) chronic lymphedema (77) chronic lymphedema (78) chronic lymphedema (79) hypertension uncontrolled (80) hypertension uncontrolled (81) Intertrigo (82) Sciatica (83) Cellulitis (84) Schizophrenia (85) Chronic bronchitis (86) HTN (hypertension) (87) Venous stasis ulcers (88) Medication refill (89) Chest pain, atypical (90) BMI 45.0-49.9, adult (91) Lymphedema of both lower extremities (92) hypertension uncontrolled (93) hypertension uncontrolled (94) hypertension uncontrolled (95) tenia corpus (96) Deep tissue injury Assessment & Plan: Morbidly obese pt whom presented on admission with Pressure injuries, Edemae bilat lower extremities eschar to dorsal aspects of metatarsals. Pt is very demanding of staff and can be resistive to repositioning. DTPI noted to L Sacrum(L)5.5cm x (W)2.5cm. Base of Pressure Injury is Maroon and indurated with surrounding non-blanchable erythema DTPI R Sacrum(L)5.5cm x (W)2.3cm. Base of Pressure Injury is maroon with purpuric center that is fluctuant. Pt complained of tenderness when minimally palpated. Bilat lower extremities are edematous . Dry eschar noted to nail matrix and tip of L 1st metatarsal, Dorsal L 2nd metatarsal, R 2nd and R 4th metatarsals. Both heels are boggy with non-Blanchable erythema. blisters forming on Right lower extremity anterior tibia. not infected cellulitis / edema on b/l le stable cont abx Tx.Plan: Apply Moisture Barrier Paste to Sacrum R and L gluteal cheeks. Cover with Optifoam drsgs. Change every 3 days and prn. Apply Betadine to dry eschar metatarsals both feet Daily. Apply Cavilon Skin Barrier to both heels. Cover each heel with Optifoam drsgs. Change every 7days and prn. Reposition at least every 2hours or as tolerated. Off-load heels with pillow. right leg hematoma stable critically ill and edema on right leg has compromised dermis over the hematoma. will likely need debridement once improved (97) COVID-19 Assessment & Plan: ++ on vent weaning abx as per ID (98) Respiratory failure (99) Pneumonia Juan Manuel Buckner Jan 05, 2020 20:06
[2020-01-05] MEDS: Miralax 17gm pkt NG SCH (20:07)
[2020-01-05] MEDS: Iron Sucrose 100 MG in NS 55 ML IV SCH (20:10)
--- NOTE | 2020-01-05 21:21 | Cardiology Progress Note ---
Subjective DATE OF SERVICE: Jan 05, 2020 Doing poorly - remains in ICU in critical condition with guarded prognosis. Remains on vent support - failed weaning trials. BP range remaining low normal range. Remains COVID19 positive. Monitor: AFIb Persisting respiratory acidosis req'd intubation and mech ventilation - remains far from weaning. Had coffee ground material in NGTube and hematoma on right leg; anti-coagulation discont'd Venous Duplex: negative for DVT Renal fxn and free water deficit correcting CXR (01/04/20) bilateral infiltrates and eff'n - unchanged. Objective Last 24 Hour Vital Signs Date Time Temp Pulse Resp B/P (MAP) Pulse Ox O2 Delivery O2 Flow Rate FiO2 01/05/20 21:00 101 16 96/53 (67) 100 01/05/20 20:08 100 101/56 01/05/20 20:00 Mechanical Ventilator 01/05/20 20:00 98.8 91 17 85/52 (63) 100 01/05/20 20:00 50 01/05/20 19:35 97 01/05/20 19:00 92 18 97/57 (70) 100 01/05/20 18:00 97 18 107/64 (78) 100 01/05/20 17:26 81 96/57 01/05/20 17:00 88 20 96/57 (70) 100 01/05/20 17:00 81 19 96/57 (70) 100 01/05/20 16:00 60 01/05/20 16:00 98.0 91 18 98/57 (71) 100 01/05/20 16:00 Mechanical Ventilator 01/05/20 15:46 122 01/05/20 15:00 85 19 111/61 (78) 01/05/20 15:00 107 18 60 01/05/20 14:00 99 14 108/60 (76) 100 01/05/20 13:00 119 23 118/67 (84) 99 01/05/20 12:32 94 104/61 01/05/20 12:00 98.8 95 18 110/64 (79) 100 01/05/20 12:00 Mechanical Ventilator 01/05/20 11:52 94 01/05/20 11:00 90 21 104/61 (75) 100 01/05/20 11:00 90 16 60 01/05/20 10:00 99 17 106/62 (77) 100 01/05/20 09:21 147 114/52 01/05/20 09:00 95 18 94/52 (66) 100 01/05/20 08:25 60 01/05/20 08:18 60 01/05/20 08:00 94 01/05/20 08:00 Mechanical Ventilator 01/05/20 08:00 99.1 147 22 114/52 (72) 93 01/05/20 08:00 40 01/05/20 07:00 160 26 124/111 (115) 93 01/05/20 07:00 144 25 40 01/05/20 06:00 135 23 113/59 (77) 89 01/05/20 05:00 137 24 106/55 (72) 100 01/05/20 04:00 Mechanical Ventilator 01/05/20 04:00 99.5 81 18 97/56 (70) 100 01/05/20 04:00 40 01/05/20 03:17 69 18 40 01/05/20 03:01 78 01/05/20 03:00 77 18 95/59 (71) 96 01/05/20 02:00 74 18 91/53 (66) 100 01/05/20 01:00 74 18 87/47 (60) 97 01/05/20 00:30 83 18 86/55 (65) 100 01/05/20 00:15 88 22 60/32 (41) 98 01/05/20 00:15 18 60/32 Mechanical Ventilator 40 01/05/20 00:00 98.4 99 22 87/47 (60) 96 01/05/20 00:00 40 01/05/20 00:00 16 87/47 Mechanical Ventilator 40 01/05/20 00:00 Mechanical Ventilator 01/04/20 23:45 18 85/48 Mechanical Ventilator 40 01/04/20 23:45 80 14 85/48 (60) 99 01/04/20 23:42 67 18 40 01/04/20 23:31 18 101/47 Mechanical Ventilator 40 01/04/20 23:09 75 01/04/20 23:07 87 111/54 01/04/20 23:00 76 18 101/47 (65) 99 01/04/20 22:31 18 116/61 Mechanical Ventilator 40 01/04/20 22:00 80 18 116/61 (79) 93 01/04/20 21:35 18 109/62 Mechanical Ventilator 40 01/04/20 21:31 18 109/62 Mechanical Ventilator 40 ROS: unchanged from 12/12/19 HEENT: Orally intubated, Mechanically Ventilated, Thin secretions ET Tube, other - NGtube RHYTHM: NSR, ST LUNGS: diminished breath sounds, right-sided rhonchi CARDIAC: normal S1 and S2, irregularly irregular ABDOMEN: other - obese EXTREMITIES: moderate edema - mostly non pitting, other - hematoma right leg Laboratory Tests Test 01/05/20 04:00 01/05/20 05:22 01/05/20 07:42 01/05/20 12:46 White Blood Count 2.6 K/UL (4.8-10.8) L Red Blood Count 2.42 M/UL (4.20-5.40) L Hemoglobin 7.0 G/DL (12.0-16.0) L Hematocrit 21.3 % (37.0-47.0) L Mean Corpuscular Volume 88 FL (80-99) Mean Corpuscular Hemoglobin 28.9 PG (27.0-31.0) Mean Corpuscular Hemoglobin Concent 32.8 G/DL (32.0-36.0) Red Cell Distribution Width 17.4 % (11.6-14.8) H Platelet Count 87 K/UL (150-450) L Mean Platelet Volume 7.1 FL (6.5-10.1) Neutrophils (%) (Auto) % (45.0-75.0) Lymphocytes (%) (Auto) % (20.0-45.0) Monocytes (%) (Auto) % (1.0-10.0) Eosinophils (%) (Auto) % (0.0-3.0) Basophils (%) (Auto) % (0.0-2.0) Differential Total Cells Counted 100 Neutrophils % (Manual) 54 % (45-75) Lymphocytes % (Manual) 40 % (20-45) Monocytes % (Manual) 5 % (1-10) Eosinophils % (Manual) 1 % (0-3) Basophils % (Manual) 0 % (0-2) Band Neutrophils 0 % (0-8) Platelet Estimate Decreased L Platelet Morphology Normal Hypochromasia 3+ Anisocytosis 1+ Spherocytes 2+ Sodium Level 138 MMOL/L (136-145) Potassium Level 3.4 MMOL/L (3.5-5.1) L Chloride Level 100 MMOL/L (98-107) Carbon Dioxide Level 35 MMOL/L (21-32) H Anion Gap 4 mmol/L (5-15) L Blood Urea Nitrogen 77 mg/dL (7-18) H Creatinine 2.0 MG/DL (0.55-1.30) H Estimat Glomerular Filtration Rate 24.9 mL/min (>60) Glucose Level 100 MG/DL (74-106) Calcium Level 8.4 MG/DL (8.5-10.1) L POC Whole Blood Glucose 103 MG/DL (74-106) 111 MG/DL (74-106) H Arterial Blood pH 7.376 (7.350-7.450) Arterial Blood Partial Pressure CO2 54.9 mmHg (35.0-45.0) H Arterial Blood Partial Pressure O2 68.1 mmHg (75.0-100.0) L Arterial Blood HCO3 31.5 mmol/L (22.0-26.0) H Arterial Blood Oxygen Saturation 90.9 % (95-100) L Arterial Blood Base Excess 5.4 (-2-2) H Eugene Test Positive Test 01/05/20 17:18 POC Whole Blood Glucose 100 MG/DL (74-106) Assessment/Plan Assessment/Plan CRITICAL AND GUARDED Acute respiratory failure Acute on chronic respiratory acidosis AFiB with labile heart rates CHF, ac/chr diast BLE edema Sepsis with shock obesity COPD with bronchospasm Acute renal failure - worsening Pleural effusion GI bleeding Anemia - multifactorial Covid 19 PNA Hypokalemia Dehydration/hypernatremia Hypertension/HHD with labile BP Vent support Monitor acid/base parameters. Advance anti-HTN regimen. Transfuse PRBC's. Antimicrobials Titrate rate-control meds - hold digitalis for elevated levels. Maintain diltiazem and metoprolol. DC apixaban - hold anticoagulation due to GI bleeding; resume with GI clearance. Continued director cardiac Diuresis based on clinical parameters; trend BNP May need trach Potassium suppl as needed Possible thorocentesis per pulmonary Agree with consideration for DNR Jerome Meek MD Jan 05, 2020 21:21
--- NOTE | 2020-01-05 22:00 | NUR ---
NURSE NOTES: Bedside assessment performed, assessed pt with a FLACC scale of 0 noted. RASS score of -2 noted VS obtained and remain stable at this time. Neuro assessment remains consistent with previous physical assessment findings. Bilateral soft wrist remains remains in place for patient safety. Pt provided with education but remains unable to comprehend and follow commands at this time. CMS remains intact and ROM exercises provided. Pt provided with a partial bed bath and ordal care. Pt remains calm, comfortable, clean and dry. Pt repositioned for comfort and safety. Fall, Aspiration and Skin precautions observed. Pt remains resting in bed; Bed remains in the lowest position with the safety wheels engaged, call light within reach, side rails up x3 and bed alarm activated. Will continue plan of care. Will continue to monitor.
[2020-01-06] VITALS (26 sets, daily range): BP systolic 79–113; BP diastolic 42–73
--- NOTE | 2020-01-06 | NUR ---
NURSE NOTES: Bedside assessment performed, assessed pt with a FLACC scale of 0 noted. VS otherwise remain stable at this time. Bilateral soft wrist remains remains in place for patient safety. Pt provided with education but remains unable to comprehend and follow commands at this time. CMS remains intact and ROM exercises provided. Pt provided with a partial bed bath and oral care. Pt remains calm, comfortable, clean and dry. Pt repositioned for comfort and safety. GT feeding ongoing, minimal feed residuals of 35ml. Fall, Aspiration and Skin precautions observed. Pt remains resting in bed; Bed remains in the lowest position with the safety wheels engaged, call light within reach, side rails up x3 and bed alarm activated. Will continue plan of care. Will continue to monitor.
--- NOTE | 2020-01-06 01:00 | NUR ---
NURSE NOTES: Patient had several hypotensive episodes (69/39, 75/50, 77/31, 88/60) with several BP cycles after giving Lasix 100mg IVP and Cardizem 90mg via NGT both scheduled. Patients blood pressure has now stabilized on its own 107/73 after giving oral care and suctioning patient.
[2020-01-06] MEDS: Metoclopramide 10mg/2ml Inj IVP SCH ×4 (03:38→20:00)
[2020-01-06] MEDS: Midazolam 2mg/2ml Inj IVP PRN ×5 (03:38→23:21)
[2020-01-06] MEDS: Meropenem 1gm/NS 55ml IVPB SCH ×4 (03:39→16:13)
--- NOTE | 2020-01-06 04:00 | NUR ---
NURSE NOTES: Bedside assessment performed, assessed pt with a FLACC scale of 0 noted. Sponge bath given, labs drawn suctioned and oral care provided. VS otherwise remain stable at this time. Bilateral soft wrist remains remains in place for patient safety. Pt provided with education but remains unable to comprehend and follow commands at this time. CMS remains intact and ROM exercises provided. Pt provided with a partial bed bath and oral care. Pt remains calm, comfortable, clean and dry. Pt repositioned for comfort and safety. Fall, Aspiration and Skin precautions observed. Pt remains resting in bed; Bed remains in the lowest position with the safety wheels engaged, call light within reach, side rails up x3 and bed alarm activated. Will continue plan of care. Will continue to monitor.
[2020-01-06] MEDS: dilTIAZem HCl 90mg tab NG SCH ×2 (04:50→11:37)
--- NOTE | 2020-01-06 05:00 | NUR ---
NURSE NOTES: Held feeds, high residuals of 160ml.
[2020-01-06 05:14] LABS: BLOOD UREA NITROGEN 68 mg/dL (7-18); CALCIUM 8.3 MG/DL (8.5-10.1); CHLORIDE 102 MMOL/L (98-107); CREATININE 1.7 MG/DL (0.55-1.30); POTASSIUM 3.7 MMOL/L (3.5-5.1); SODIUM 138 MMOL/L (136-145)
[2020-01-06 05:25] LABS: CARBON DIOXIDE 33 MMOL/L (21-32)
[2020-01-06 05:32] LABS: HEMATOCRIT 22.3 % (37.0-47.0); HEMOGLOBIN 7.5 G/DL (12.0-16.0); MEAN CORPUSCULAR VOLUME 87 FL (80-99); PLATELET COUNT 82 K/UL (150-450); RED BLOOD COUNT 2.58 M/UL (4.20-5.40); RED CELL DISTRIBUTION WIDTH 17.3 % (11.6-14.8); WHITE BLOOD COUNT 2.6 K/UL (4.8-10.8)
[2020-01-06] MEDS: NovoLOG Insulin Flexpen SUBQ SCH ×4 (06:00→23:36)
--- NOTE | 2020-01-06 06:00 | NUR ---
NURSE NOTES: Bedside assessment performed, assessed pt with a FLACC scale of 0 noted. VS obtained and remain stable at this time. Neuro assessment remains consistent with previous physical assessment findings. Patient does get agitated at times. Versed has been administered to relieved some of the agitation. Bilateral soft wrist remains remains in place for patient safety. Pt provided with education but remains unable to comprehend and follow commands at this time. CMS remains intact and ROM exercises provided. Pt provided with a partial bed bath and oral care. Pt remains calm, comfortable, clean and dry. Pt repositioned for comfort and safety. Fall, Aspiration and Skin precautions observed. Pt remains resting in bed; Bed remains in the lowest position with the safety wheels engaged, call light within reach, side rails up x3 and bed alarm activated. Will continue plan of care. Will continue to monitor.
--- NOTE | 2020-01-06 07:20 | NUR ---
NURSE NOTES: Received patient from Jaden COHEN. Patient is asleep. A. Fib on the heart monitor, HR 96-100. Receiving oxygen via ET tube 7.5 24cm at the gum line, vent settings: AC 18, TV 600, FiO2 40%, PEEP 5. Right Nares NGT is intact and receiving Glucerna 1.5 at 45cc/hr. IV site is Left Upper Arm PICC patent and intact. Lockett catheter is intact and draining. Bed is locked, placed in lowest position, side rails up x3, bed alarm on, head of bed elevated. Will continue to monitor.
--- NOTE | 2020-01-06 07:33 | NUR ---
RD ASSESSMENT & RECOMMENDATIONS SEE CARE ACTIVITY FOR COMPLETE ASSESSMENT DAILY ESTIMATED NEEDS: Needs based on Obesity, Cardiac, DM, NATALIE, Critical Care/ 80.5kg abw 22-25kg/IBW (59kg) kcals/kg 8708-3121 total kcals 1-2 g protein/kg 80-161 g total protein 20-25 mL/kg 8208-4909 total fluid mLs NUTRITION DIAGNOSIS: 1) Class III Obesity R/T lifestyle factors? excessive energy intake as evidenced by pt w/ BMI >50, @ 245% IBW. 2) Altered nutrition related lab values R/T diabetes, altered lipid metabolism, cardiac hx, NATALIE as evidenced by A1C of 7.1, elev triglyceride 239, elev BNP 4671, elev creat (1.7->4.3 -> 1.8, elev BUN (92 -> 65), elev K (5.4, 5.2 -> wnl->5.3-> wnl), 3) Swallowing difficulty R/T decreased cognitive fxn, respiratory status as evidenced by s/p NGT insertion (12/17), s/p worsening respiratory status, Covid-19 positive, orally intubated (12/22), NPO. CURRENT TF:Glucerna 1.5 @45ml/hr ENTERAL NUTRITION RECOMMENDATIONS: Glucerna 1.5 @ 40ml/hr x 24 hrs to provide 960ml, 1440kcal, 79g prot, 729ml free water * Lower TF to goal of 40ml/hr, will meet 100% est needs. * HOB over 30 degrees/ water flush per MD ADDITIONAL RECOMMENDATIONS: 1) Calibrated bedscale wt: fluctuating daily wts 2) Monitor renal fxn and lytes, need to continue Nepro -> creat trend down, K wnl, rec TF change to Glucerna 1.5 (See above) 3) Wound healing: add Nephrovite x 1, Vit C 250mg QD, Armand BID via NGT 4) Monitor BGs closely w/ Decadron, now off. 5) Feed at goal w/ hemodynamic stability .
[2020-01-06] MEDS: Metoprolol Tartrate 50mg tab NG SCH ×2 (08:11→20:01)
[2020-01-06] MEDS: Pantoprazole Inj IVP SCH ×2 (08:11→20:00)
[2020-01-06] MEDS: Micafungin 100 MG in NS 110 ML IVPB SCH (08:11)
[2020-01-06] MEDS: Docusate 100mg/10ml Liq NG SCH ×2 (08:12→17:50)
[2020-01-06] MEDS: Enoxaparin 60mg Inj SUBQ SCH (08:12)
[2020-01-06] MEDS: Bacitracin Oint 15gm Tube TOPIC SCH (08:13)
--- NOTE | 2020-01-06 08:13 | Surgery Progress Note ---
Surgery Progress Note Subjective Additional Comments agitated labs noted ill appearing Objective Last 24 Hour Vital Signs Date Time Temp Pulse Resp B/P (MAP) Pulse Ox O2 Delivery O2 Flow Rate FiO2 01/06/20 07:00 95 18 107/56 (73) 100 01/06/20 06:00 99 18 103/54 (70) 100 01/06/20 05:00 145 19 101/62 (75) 84 01/06/20 04:50 99 107/71 01/06/20 04:00 40 01/06/20 04:00 99.5 105 21 107/73 (84) 97 01/06/20 04:00 Mechanical Ventilator 01/06/20 03:39 99 01/06/20 03:10 99 18 40 01/06/20 03:00 94 19 113/57 (75) 100 01/06/20 02:00 95 19 101/56 (71) 100 01/06/20 01:00 134 24 107/71 (83) 96 01/06/20 00:00 100.0 126 25 92/61 (71) 97 01/06/20 00:00 133 01/06/20 00:00 40 01/06/20 00:00 Mechanical Ventilator 01/05/20 23:19 101 101/57 01/05/20 23:00 93 15 101/57 (72) 100 01/05/20 22:41 94 18 45 01/05/20 22:00 99 18 91/46 (61) 100 01/05/20 21:00 101 16 96/53 (67) 100 01/05/20 20:08 100 101/56 01/05/20 20:00 Mechanical Ventilator 01/05/20 20:00 98.8 91 17 85/52 (63) 100 01/05/20 20:00 50 01/05/20 19:35 97 01/05/20 19:32 102 18 60 01/05/20 19:00 92 18 97/57 (70) 100 01/05/20 18:00 97 18 107/64 (78) 100 01/05/20 17:26 81 96/57 01/05/20 17:00 88 20 96/57 (70) 100 01/05/20 17:00 81 19 96/57 (70) 100 01/05/20 16:00 60 01/05/20 16:00 98.0 91 18 98/57 (71) 100 01/05/20 16:00 Mechanical Ventilator 01/05/20 15:46 122 01/05/20 15:00 85 19 111/61 (78) 01/05/20 15:00 107 18 60 01/05/20 14:00 99 14 108/60 (76) 100 01/05/20 13:00 119 23 118/67 (84) 99 01/05/20 12:32 94 104/61 01/05/20 12:00 98.8 95 18 110/64 (79) 100 01/05/20 12:00 Mechanical Ventilator 01/05/20 11:52 94 01/05/20 11:00 90 21 104/61 (75) 100 01/05/20 11:00 90 16 60 01/05/20 10:00 99 17 106/62 (77) 100 01/05/20 09:21 147 114/52 01/05/20 09:00 95 18 94/52 (66) 100 01/05/20 08:25 60 01/05/20 08:18 60 I&O Intake and Output 01/05/20 01/06/20 19:00 07:00 Intake Total 920 ml 700 ml Output Total 320 ml 1450 ml Balance 600 ml -750 ml Free Water 80 ml IV Total 815 ml 215 ml Tube Feeding 45 ml 405 ml Other 60 ml Output Urine Total 320 ml 1450 ml Wound: other Cardiovascular: RSR Respiratory: decreased breath sounds Abdomen: soft, non-distended, decreased bowel sounds Extremities: edema, cyanosis Laboratory Tests Test 01/05/20 12:46 01/05/20 17:18 01/06/20 04:30 01/06/20 05:08 POC Whole Blood Glucose 111 MG/DL (74-106) H 100 MG/DL (74-106) 135 MG/DL (74-106) H White Blood Count 2.6 K/UL (4.8-10.8) L Red Blood Count 2.58 M/UL (4.20-5.40) L Hemoglobin 7.5 G/DL (12.0-16.0) L Hematocrit 22.3 % (37.0-47.0) L Mean Corpuscular Volume 87 FL (80-99) Mean Corpuscular Hemoglobin 29.0 PG (27.0-31.0) Mean Corpuscular Hemoglobin Concent 33.5 G/DL (32.0-36.0) Red Cell Distribution Width 17.3 % (11.6-14.8) H Platelet Count 82 K/UL (150-450) L Mean Platelet Volume 6.8 FL (6.5-10.1) Neutrophils (%) (Auto) % (45.0-75.0) Lymphocytes (%) (Auto) % (20.0-45.0) Monocytes (%) (Auto) % (1.0-10.0) Eosinophils (%) (Auto) % (0.0-3.0) Basophils (%) (Auto) % (0.0-2.0) Neutrophils % (Manual) Pending Lymphocytes % (Manual) Pending Platelet Estimate Pending Platelet Morphology Pending Sodium Level 138 MMOL/L (136-145) Potassium Level 3.7 MMOL/L (3.5-5.1) Chloride Level 102 MMOL/L (98-107) Carbon Dioxide Level 33 MMOL/L (21-32) H Blood Urea Nitrogen 68 mg/dL (7-18) H Creatinine 1.7 MG/DL (0.55-1.30) H Estimat Glomerular Filtration Rate 30.0 mL/min (>60) Glucose Level 139 MG/DL (74-106) H Calcium Level 8.3 MG/DL (8.5-10.1) L Test 01/06/20 07:39 Arterial Blood pH 7.532 (7.350-7.450) Arterial Blood Partial Pressure CO2 38.8 mmHg (35.0-45.0) Arterial Blood Partial Pressure O2 89.1 mmHg (75.0-100.0) Arterial Blood HCO3 31.8 mmol/L (22.0-26.0) H Arterial Blood Oxygen Saturation 96.5 % (95-100) Arterial Blood Base Excess 8.5 (-2-2) H Eugene Test Positive Plan Problems: (1) Urinary tract infection (2) CHF exacerbation (3) History of schizophrenia (4) Atrial fibrillation with RVR (5) Schizophrenia (6) GERD (gastroesophageal reflux disease) (7) Smoker (8) Atrial fibrillation with rapid ventricular response (9) Lymphadema (10) COPD (chronic obstructive pulmonary disease) (11) CKD (chronic kidney disease) stage 3, GFR 30-59 ml/min (12) NATALIE (acute kidney injury) (13) Dehydration (14) Dysphagia (15) UTI (urinary tract infection) (16) UGI bleed (17) ESBL (extended spectrum beta-lactamase) producing bacteria infection (18) Constipation (19) Lactic acidosis (20) Tinea cruris (21) Onychomycosis (22) Emesis (23) Essential hypertension (24) Anemia (25) Cough (26) Depression (27) Depression (28) Edema (29) Rash (30) Opiate dependence (31) Opiate dependence (32) Opiate dependence (33) Opiate dependence (34) Pyelonephritis (35) Sepsis (36) UTI (urinary tract infection) (37) Nausea and vomiting (38) Abdominal pain Assessment & Plan: [age]-year-old female obese white abdominal pain deep tissue injury identified limited mobility on HD. KUB noted tube in place continue meds feeds Does not seem obstructed We will monitor lines noted. plan change resume tube feeds labs okay FINDINGS: Lower thorax: Obscuration of the left costophrenic angle suggestive of pleural effusion. Intraperitoneal space: No free air. Gastrointestinal tract: Unremarkable. No dilation. Bones/joints: Unremarkable. Tubes, lines and devices: The nasogastric tube has the tip at the mid inferior aspect of the gastric body. Other findings: Nonspecific gas pattern. Single frontal view of the abdomen demonstrates tip of the enteric tube and distal side-port projecting over the stomach. Gas is identified within the nondistended large bowel. There is a paucity of small bowel gas seen. Partially visualized left pleural effusion. No other significant interval change. (39) Chest pain (40) Chest pain (41) Nausea (42) Obesity (43) Chronic ulcer of leg (44) Chronic ulcer of leg (45) Chronic ulcer of leg (46) ACS (acute coronary syndrome) (47) Acute chest pain (48) Encounter for dressing change or suture removal (49) Left leg cellulitis (50) Acute encephalopathy (51) Encounter for wound re-check (52) Intractable nausea and vomiting (53) Infection due to ESBL-producing Escherichia coli (54) Chronic venous stasis (55) Change of dressing (56) Change of dressing (57) Change of dressing (58) Change of dressing (59) Change of dressing (60) Change of dressing (61) Change of dressing (62) Change of dressing (63) ESBL urine (64) Lymphadema (65) Lymphedema (66) Lymphedema (67) Lymphedema (68) Lymphedema (69) Lymphedema (70) Lymphedema (71) Lymphedema (72) Lymphedema (73) Open wound of foot (74) Open wound of foot (75) cellulitis (76) chronic lymphedema (77) chronic lymphedema (78) chronic lymphedema (79) hypertension uncontrolled (80) hypertension uncontrolled (81) Intertrigo (82) Sciatica (83) Cellulitis (84) Schizophrenia (85) Chronic bronchitis (86) HTN (hypertension) (87) Venous stasis ulcers (88) Medication refill (89) Chest pain, atypical (90) BMI 45.0-49.9, adult (91) Lymphedema of both lower extremities (92) hypertension uncontrolled (93) hypertension uncontrolled (94) hypertension uncontrolled (95) tenia corpus (96) Deep tissue injury Assessment & Plan: Morbidly obese pt whom presented on admission with Pressure injuries, Edemae bilat lower extremities eschar to dorsal aspects of metatarsals. Pt is very demanding of staff and can be resistive to repositioning. DTPI noted to L Sacrum(L)5.5cm x (W)2.5cm. Base of Pressure Injury is Maroon and indurated with surrounding non-blanchable erythema DTPI R Sacrum(L)5.5cm x (W)2.3cm. Base of Pressure Injury is maroon with purpuric center that is fluctuant. Pt complained of tenderness when minimally palpated. Bilat lower extremities are edematous . Dry eschar noted to nail matrix and tip of L 1st metatarsal, Dorsal L 2nd metatarsal, R 2nd and R 4th metatarsals. Both heels are boggy with non-Blanchable erythema. blisters forming on Right lower extremity anterior tibia. not infected cellulitis / edema on b/l le stable cont abx Tx.Plan: Apply Moisture Barrier Paste to Sacrum R and L gluteal cheeks. Cover with Optifoam drsgs. Change every 3 days and prn. Apply Betadine to dry eschar metatarsals both feet Daily. Apply Cavilon Skin Barrier to both heels. Cover each heel with Optifoam drsgs. Change every 7days and prn. Reposition at least every 2hours or as tolerated. Off-load heels with pillow. right leg hematoma stable critically ill and edema on right leg has compromised dermis over the hematoma. will likely need debridement once improved (97) COVID-19 Assessment & Plan: ++ on vent weaning abx as per ID (98) Respiratory failure (99) Pneumonia Juan Manuel Buckner Jan 06, 2020 08:13
[2020-01-06] MEDS ORDERED: NS 275ml ONE ×2 (08:26→08:39)
[2020-01-06] MEDS ORDERED: Tubing IV Secondary IV ONE (08:26)
[2020-01-06] MEDS ORDERED: NS 500ML ONE (08:26)
[2020-01-06] MEDS: Acetaminophen 650mg/20.3ml NG PRN ×3 (08:32→20:00)
--- NOTE | 2020-01-06 08:35 | NUR ---
NURSE NOTES: Medications given as prescribed, no adverse reactions noted. Patient's temperature read 102.1 degrees via axillary, ice packs placed on patient and prescribed Tylenol given via NGT. Patient remains A. fib on the monitor, HR 86-94.
--- NOTE | 2020-01-06 09:23 | Pulmonolgy Critical Care Note ---
Luz Bowen [employer] 01/06/20 0923: Critical Care - Asmt/Plan Assessment/Plan: ASSESSMENT acute hypoxemic hypercapnic resp failure, requiring intubation 12/22 failure to wean COVID 19 PNA sepsis fungemia UTI with E coli ESBL UTI VRE possible aspiration PNA Moderate R pleural effusion COPD Bronchospasm Atrial fibrillation with rapid ventricular response Congestive heart failure Acute renal failure on CKD Severe anemia Probable GI bleeding Thrombocytopenia Status post ground fall Tobacco dependency Morbid obesity probably GARY Homeless R knee edema and hematoma, likely sprain /strain post fall PLAN OF CARE ICU intubated 12/22 MDI Albuterol in line with vent fup with CXR and ABG ABG this am stable, FiO2 down to 40% started on weaning trials with high PS settings as ordered, goal MV 10 tolerated 6 hrs 01/02, continue as tolerated, not tolerated afterwards will need trach CXR 01/03 no sign change thoracentesis pending off Fentanyl for now given low BP sedation with Versed prn s/p steroids IV ( started 12/23) continue for total of 10 days till 01/02 s/p Remdesivir (started 12/24 ), dc 12/30 initial diagnoses with COVID 19 at [facility] 11/29, was not hypoxic and not intubated, was not treated with Remdesivivr , only received empiric abx for PNA sedation with Fentanyl gtt and versed prn - DVT prophylaxis with Lovenox prior Venous Duplex BLE -NGT COVID 19 by PCR 12/22 positive isolation IL 6 52 , initial CRP 15.6, ferritin 769, fup with inflammatory markers CRP 12/29 - down to 11.8 ; ferritin down to 503 CRP 01/03 -10.7 on diuresis with Lasix , monitor volumes closely creat remains stable rate control- per cardio recs: monitor volumes pro BNP trending down ECHO with pEF no evidence of WMA GI prophylaxis with PPI s/p Venofer x 2 s/p blood transfusion 12/25 monitor HH with goal to keep Hgb >7 s/p 1 u PRBC 01/01 now on IV Venofer x5 days ( 01/04- GI procedure when stable monitor PLT counts renal US no hydro, BL nonobstructive stones s/p IV hydration, now resumed again per nephro monitor renal parameters, lytes , e/lyte management as per nephro recs creat stable UCX 12/11 + E coli ESBL, BCX 12/16 12 + yeast, fup with yeast ID, ? source BCX 12/17 NGTD BCX 12/22 and 12/24 NGTD UCX 12/16 VRE SCX 12/19 MRSA, ACB MDR now on meropenem , micafungin , Polymyxin , Zyvox ( completed 01/03) , started Doxy 01/03 - as per ID recs; cooling blanket prn fevers fever 102 this am will repeat BCX prior X ray R knee given fall 12/15 , large hematoma, swelling-no fx or dislocation ice R knee and elevate CT head no acute IC pathology fall precautions prior declined Nicotine patch discussion on weight loss if receptive - not at this time; anxious and wants to go home pain management anxiolytic prn SW consult for placement evaluated by bioethics -> DNR/DNI status appropriate given current critical condition , grave prognosis and multiple comorbidities, would recommend DNR/DNI status as well now DNR/DNI status case discussed and evaluated by supervising physician ivy mccarty for a consult! Critical Care - Objective Last 24 Hour Vital Signs Date Time Temp Pulse Resp B/P (MAP) Pulse Ox O2 Delivery O2 Flow Rate FiO2 01/06/20 09:00 102.1 86 18 99/46 (63) 100 01/06/20 08:11 110 106/54 01/06/20 08:00 79 18 99/46 (63) 100 01/06/20 08:00 Mechanical Ventilator 01/06/20 08:00 82 01/06/20 08:00 40 01/06/20 07:00 95 18 107/56 (73) 100 01/06/20 07:00 87 18 40 01/06/20 06:00 99 18 103/54 (70) 100 01/06/20 05:00 145 19 101/62 (75) 84 01/06/20 04:50 99 107/71 01/06/20 04:00 40 01/06/20 04:00 99.5 105 21 107/73 (84) 97 01/06/20 04:00 Mechanical Ventilator 01/06/20 03:39 99 01/06/20 03:10 99 18 40 01/06/20 03:00 94 19 113/57 (75) 100 01/06/20 02:00 95 19 101/56 (71) 100 01/06/20 01:00 134 24 107/71 (83) 96 01/06/20 00:00 100.0 126 25 92/61 (71) 97 01/06/20 00:00 133 01/06/20 00:00 40 01/06/20 00:00 Mechanical Ventilator 01/05/20 23:19 101 101/57 01/05/20 23:00 93 15 101/57 (72) 100 01/05/20 22:41 94 18 45 01/05/20 22:00 99 18 91/46 (61) 100 01/05/20 21:00 101 16 96/53 (67) 100 01/05/20 20:08 100 101/56 01/05/20 20:00 Mechanical Ventilator 01/05/20 20:00 98.8 91 17 85/52 (63) 100 01/05/20 20:00 50 01/05/20 19:35 97 01/05/20 19:32 102 18 60 01/05/20 19:00 92 18 97/57 (70) 100 01/05/20 18:00 97 18 107/64 (78) 100 01/05/20 17:26 81 96/57 01/05/20 17:00 88 20 96/57 (70) 100 01/05/20 17:00 81 19 96/57 (70) 100 01/05/20 16:00 60 01/05/20 16:00 98.0 91 18 98/57 (71) 100 01/05/20 16:00 Mechanical Ventilator 01/05/20 15:46 122 01/05/20 15:00 85 19 111/61 (78) 01/05/20 15:00 107 18 60 01/05/20 14:00 99 14 108/60 (76) 100 01/05/20 13:00 119 23 118/67 (84) 99 01/05/20 12:32 94 104/61 01/05/20 12:00 98.8 95 18 110/64 (79) 100 01/05/20 12:00 Mechanical Ventilator 01/05/20 11:52 94 01/05/20 11:00 90 21 104/61 (75) 100 01/05/20 11:00 90 16 60 01/05/20 10:00 99 17 106/62 (77) 100 01/05/20 09:21 147 114/52 Objective: CONDITION: critical General Appearance: morbidly obese , sedated, anasarca ; on vent AC 600-18-40% PEEP 5 Lines, tubes and drains: LUE PICC new , intact HEENT: normocephalic, atraumatic, anicteric, NGT in , OP with ET Neck: non-tender Respiratory/Chest: chest wall non-tender, no accessory muscle use, scattered rhonchi Cardiovascular/Chest: irregularly irregular - A fib , tachy at times , distant heart sounds, Abdomen: normal bowel sounds, non tender , obese, soft : [place] Extremities: no calf tenderness, moderate edema - +3 BLE, R knee with large hematoma, edema, Skin Exam: warm/dry, multiple tattoos Neurologic: sedated Musculoskeletal: normal muscle bulk Accucheck: 135 Critical Care - Subjective ROS Limited/Unobtainable: Yes Interval Events: fever 102 this am, leukopenic ABG stable on current settings, FIo2 down to 40% failed weaning trials prior thoracentesis pending Hgb up to 7.5 after started on IV Venofer Condition: critical IV Access: PICC - LUE PICC intact EKG Rhythm: Atrial Fibrillation FI02: 40 Vent Support Breath Rate: 18 Vent Support Mode: AC Vent Tidal Volume: 600 Sputum Amount: Small PEEP: 5.0 PIP: 46 Tube Feeding Amount: 45 I&O: Intake and Output 01/05/20 01/06/20 19:00 07:00 Intake Total 920 ml 700 ml Output Total 320 ml 1450 ml Balance 600 ml -750 ml Free Water 80 ml IV Total 815 ml 215 ml Tube Feeding 45 ml 405 ml Other 60 ml Output Urine Total 320 ml 1450 ml CXR: 01/03 Bilateral interstitial and airspace congestion, right pleural effusion, cardiomegaly persists, unchanged. Tube and line positions are unchanged ET-Tube: 7.5 ET Position: 24 Igor Carpio MD 01/07/20 1503: Critical Care - Asmt/Plan Assessment/Plan: Patient seen and examined with [employer]IATE. Agree with above A&P as it reflects our joint deliberations. Time Spent (Minutes): 40 Luz Bowen NP Jan 06, 2020 09:23 Igor Carpio MD Jan 07, 2020 15:03
--- NOTE | 2020-01-06 09:24 | NUR ---
RESPIRATORY NOTES PT placed on SBT - CPAP 5, PS 10. PT unable to generate adequate tidal volumes - ~100-200. PT placed back onto previous vent settings. NOEL Thompson present. Will continue to monitor.
--- NOTE | 2020-01-06 09:31 | NUR ---
NURSE NOTES: On reassessment, axillary temperature read 100.5 degrees. Ice packs remain on patient and extra blankets removed.
--- NOTE | 2020-01-06 10:14 | NUR ---
NURSE NOTES: Patient's blood pressure was 81/52, on reassessment blood pressure read 94/52.
--- NOTE | 2020-01-06 11:11 | General Progress Note ---
Subjective ROS Limited/Unobtainable: Yes Allergies: Coded Allergies: ERYTHROMYCIN BASE (Verified Allergy, Severe, 12/12/19) HALOPERIDOL (Verified Allergy, Unknown, 12/12/19) VANCOMYCIN (Unverified Adverse Reaction, Intermediate, Shortness of Breath, 12/12/19) Objective Last 24 Hour Vital Signs Date Time Temp Pulse Resp B/P (MAP) Pulse Ox O2 Delivery O2 Flow Rate FiO2 01/06/20 10:00 82 18 81/52 (62) 100 01/06/20 09:31 100.5 01/06/20 09:24 100 01/06/20 09:00 102.1 86 18 99/46 (63) 100 01/06/20 08:11 110 106/54 01/06/20 08:00 79 18 99/46 (63) 100 01/06/20 08:00 Mechanical Ventilator 01/06/20 08:00 82 01/06/20 08:00 40 01/06/20 07:00 95 18 107/56 (73) 100 01/06/20 07:00 87 18 40 01/06/20 06:00 99 18 103/54 (70) 100 01/06/20 05:00 145 19 101/62 (75) 84 01/06/20 04:50 99 107/71 01/06/20 04:00 40 01/06/20 04:00 99.5 105 21 107/73 (84) 97 01/06/20 04:00 Mechanical Ventilator 01/06/20 03:39 99 01/06/20 03:10 99 18 40 01/06/20 03:00 94 19 113/57 (75) 100 01/06/20 02:00 95 19 101/56 (71) 100 01/06/20 01:00 134 24 107/71 (83) 96 01/06/20 00:00 100.0 126 25 92/61 (71) 97 01/06/20 00:00 133 01/06/20 00:00 40 01/06/20 00:00 Mechanical Ventilator 01/05/20 23:19 101 101/57 01/05/20 23:00 93 15 101/57 (72) 100 01/05/20 22:41 94 18 45 01/05/20 22:00 99 18 91/46 (61) 100 01/05/20 21:00 101 16 96/53 (67) 100 01/05/20 20:08 100 101/56 01/05/20 20:00 Mechanical Ventilator 01/05/20 20:00 98.8 91 17 85/52 (63) 100 01/05/20 20:00 50 01/05/20 19:35 97 01/05/20 19:32 102 18 60 01/05/20 19:00 92 18 97/57 (70) 100 01/05/20 18:00 97 18 107/64 (78) 100 01/05/20 17:26 81 96/57 01/05/20 17:00 88 20 96/57 (70) 100 01/05/20 17:00 81 19 96/57 (70) 100 01/05/20 16:00 60 01/05/20 16:00 98.0 91 18 98/57 (71) 100 01/05/20 16:00 Mechanical Ventilator 01/05/20 15:46 122 01/05/20 15:00 85 19 111/61 (78) 01/05/20 15:00 107 18 60 01/05/20 14:00 99 14 108/60 (76) 100 01/05/20 13:00 119 23 118/67 (84) 99 01/05/20 12:32 94 104/61 01/05/20 12:00 98.8 95 18 110/64 (79) 100 01/05/20 12:00 Mechanical Ventilator 01/05/20 11:52 94 Intake and Output 01/05/20 01/06/20 19:00 07:00 Intake Total 920 ml 700 ml Output Total 320 ml 1450 ml Balance 600 ml -750 ml Free Water 80 ml IV Total 815 ml 215 ml Tube Feeding 45 ml 405 ml Other 60 ml Output Urine Total 320 ml 1450 ml Laboratory Tests 01/05/20 12:46: POC Whole Blood Glucose 111H 01/05/20 17:18: POC Whole Blood Glucose 100 01/06/20 04:30: White Blood Count 2.6L, Red Blood Count 2.58L, Hemoglobin 7.5L, Hematocrit 22.3L , Mean Corpuscular Volume 87, Mean Corpuscular Hemoglobin 29.0, Mean Corpuscular Hemoglobin Concent 33.5, Red Cell Distribution Width 17.3H, Platelet Count 82L, Mean Platelet Volume 6.8, Neutrophils (%) (Auto) , Lymphocytes (%) (Auto) , Monocytes (%) (Auto) , Eosinophils (%) (Auto) , Basophils (%) (Auto) , Differential Total Cells Counted 100, Neutrophils % (Manual) 69, Lymphocytes % (Manual) 20, Monocytes % (Manual) 9, Eosinophils % (Manual) 1, Basophils % (Ma nual) 1, Band Neutrophils 0, Platelet Estimate DecreasedL, Platelet Morphology Normal, Hypochromasia 3+, Sodium Level 138, Potassium Level 3.7, Chloride Level 102, Carbon Dioxide Level 33H, Blood Urea Nitrogen 68H, Creatinine 1.7H, Estimat Glomerular Filtration Rate 30.0, Glucose Level 139H, Calcium Level 8.3L 01/06/20 05:08: POC Whole Blood Glucose 135H 01/06/20 07:39: Arterial Blood pH 7.532H, Arterial Blood Partial Pressure CO2 38.8, Arterial Blood Partial Pressure O2 89.1, Arterial Blood HCO3 31.8H, Arterial Blood Oxygen Saturation 96.5, Arterial Blood Base Excess 8.5H, Eugene Test Positive Height (Feet): 5 Height (Inches): 6.00 Weight (Pounds): 298 General Appearance: morbidly obese, other - sedated on vent, febrile Neck: normal inspection Cardiovascular: regularly irregular Respiratory/Chest: rhonchi - bilaterally Abdomen: non tender, soft Edema: mild edema Neurologic: unresponsive Assessment/Plan Problem List: (1) Schizophrenia ICD Codes: F20.9 - Schizophrenia, unspecified SNOMED: 58588461 (2) GERD (gastroesophageal reflux disease) ICD Codes: K21.9 - Gastro-esophageal reflux disease without esophagitis SNOMED: 372053576 (3) Lymphadema (4) Smoker ICD Codes: F17.200 - Nicotine dependence, unspecified, uncomplicated SNOMED: 97439461 (5) Atrial fibrillation with rapid ventricular response ICD Codes: I48.91 - Unspecified atrial fibrillation SNOMED: 015651926317135 (6) CKD (chronic kidney disease) stage 3, GFR 30-59 ml/min ICD Codes: N18.3 - Chronic kidney disease, stage 3 (moderate) SNOMED: 680464350 (7) NATALIE (acute kidney injury) ICD Codes: N17.9 - Acute kidney failure, unspecified SNOMED: 9515115, 96013968 (8) COPD (chronic obstructive pulmonary disease) ICD Codes: J44.9 - Chronic obstructive pulmonary disease, unspecified SNOMED: 86006707 (9) UGI bleed ICD Codes: K92.2 - Gastrointestinal hemorrhage, unspecified SNOMED: 26982881 (10) Dysphagia ICD Codes: R13.10 - Dysphagia, unspecified SNOMED: 20989035, 833808181 (11) UTI (urinary tract infection) ICD Codes: N39.0 - Urinary tract infection, site not specified SNOMED: 63710308 (12) ESBL (extended spectrum beta-lactamase) producing bacteria infection ICD Codes: A49.9 - Bacterial infection, unspecified; Z16.12 - Extended spectrum beta lactamase (ESBL) resistance SNOMED: 567223290 (13) Dehydration ICD Codes: E86.0 - Dehydration SNOMED: 91295661 (14) CHF exacerbation ICD Codes: I50.9 - Heart failure, unspecified SNOMED: 583267598, 55466092968766 (15) Acute respiratory failure ICD Codes: J96.00 - Acute respiratory failure, unspecified whether with hypoxia or hypercapnia SNOMED: 47176779 (16) COVID-19 ICD Codes: U07.1 - COVID-19 SNOMED: 165740874 (17) Pneumonia ICD Codes: J18.9 - Pneumonia, unspecified organism SNOMED: 741587312 Qualifiers: (18) Hematoma of lower leg ICD Codes: S80.10XA - Contusion of unspecified lower leg, initial encounter SNOMED: 159641957 (19) CKD (chronic kidney disease) stage 3, GFR 30-59 ml/min ICD Codes: N18.3 - Chronic kidney disease, stage 3 (moderate) SNOMED: 842770174 Status: stable Assessment/Plan: resp distress, icu, now intubated, natalie on ckd,,now stable, I/O, ,+hematoma RLE stop eliquis ancd asa, lovenox now iv protonix, rx esbl and + vre uti,g+ cocci linezolid , remains high risk, d/w psych, ID, cardiology, chf and on lasix ,covid neg prior now +, grave prognosis, fungemia on micafungin likely will be unable to wean for a long time, agitated when tried to wean and had apnea 01/01, cpap trial 01/02 +9/*25 had distress/tachycardia , ,all lab and orders reviewed , no active bleeding , low Hb to start venofer, replace K, increase lasix for chf , reculture, d/w dr curran needs trach, unable to sign, he thinks that she might be able to wean gradually after trach placed icu time 35 min Benjamin Dumont MD Jan 06, 2020 11:11
--- NOTE | 2020-01-06 11:28 | Diagnostic Imaging Report ---
EXAM: XR Chest, 1 View CLINICAL HISTORY: SOB TECHNIQUE: Frontal view of the chest. COMPARISON: Chest radiograph on 01/04/2020 FINDINGS: Hardware: Endotracheal tube terminates in the region of the lower thoracic trachea, approximately 2.6 cm above the devika. Enteric tube is difficult to visualize distally. Lungs/pleura: Similar opacities predominantly in the mid and lower lungs which may represent combination of pleural effusions and atelectasis versus pneumonia. Component of pulmonary edema is possible. Heart/mediastinum: Stable enlargement of the cardiac silhouette. Soft tissues: Unremarkable. Bones: No acute fracture. Upper abdomen: Normal. IMPRESSION: 1. Endotracheal tube terminates in the region of the lower thoracic trachea, approximately 2.6 cm above the devika. Enteric tube is difficult to visualize distally. 2. Similar opacities predominantly in the mid and lower lungs which may represent combination of pleural effusions and atelectasis versus pneumonia versus edema.
[2020-01-06] MEDS: Polymyxin B Sulfate 500,000 UNITS in D5W 500ml 550 ML IV SCH ×2 (11:36→19:59)
--- NOTE | 2020-01-06 11:54 | NUR ---
NURSE NOTES: Patient is sleeping in bed, remains on ventilator, vent settings: AC 18, TV 600, FiO2 40%, PEEP 5. Patient's O2 saturation at 100%. Novolog was held due to finger stick glucose being 107 mg/dL. No residual found when checked, Glucerna 1.5 feeding started at 10ml/hr.
--- NOTE | 2020-01-06 14:13 | NUR ---
NURSE NOTES: Patient is resting comfortably in bed, O2 saturation at 100%. Oral suctioning done, thick clear sputum removed. Will continue to monitor.
--- NOTE | 2020-01-06 15:37 | NUR ---
CASE MANAGEMENT:REVIEW 01/06/20 SI: COVID PNA ~ INTUBATED 100.5 79 18 89/54 100% ON VENT SUPPORT W/40% FIO2 WBC-2.6 H/H-7.5/22.3 PLT-82 BUN+68 CR+1.7 IS: IV POLYMYXIN Q12 IV MEROPENEM Q12 ~ IV DOXYCYCLINE Q12 ~ IV MICAFUNGIN Q24 ~ IV LASIX Q6HRS LOVENOX SQ QD CARDIZEM NG Q6HRS DIAMOX NG BID : ICU STATUS NOTE: CHEST XRAY ABG BLOOD CX
--- NOTE | 2020-01-06 16:09 | Cardiology Progress Note ---
Subjective DATE OF SERVICE: Jan 06, 2020 Doing poorly - remains in ICU in critical condition with guarded prognosis. Remains on vent support - failed weaning trials; will likely need trach. BP range remaining low normal range. Remains COVID19 positive. Monitor: AFIb Persisting respiratory acidosis req'd intubation and mech ventilation - remains far from weaning. Had coffee ground material in NGTube and hematoma on right leg; anti-coagulation discont'd Venous Duplex: negative for DVT Renal fxn and free water deficit correcting CXR (01/04/20) bilateral infiltrates and eff'n - unchanged. Objective Last 24 Hour Vital Signs Date Time Temp Pulse Resp B/P (MAP) Pulse Ox O2 Delivery O2 Flow Rate FiO2 01/06/20 14:00 67 20 89/47 (61) 100 01/06/20 13:23 99.1 01/06/20 13:00 66 25 88/52 (64) 100 01/06/20 12:00 100.5 79 18 89/54 (66) 100 01/06/20 12:00 68 01/06/20 12:00 Mechanical Ventilator 01/06/20 12:00 40 01/06/20 11:37 94 96/51 01/06/20 11:00 84 18 96/51 (66) 100 01/06/20 11:00 85 18 40 01/06/20 10:00 82 18 81/52 (62) 100 01/06/20 09:31 100.5 01/06/20 09:24 100 01/06/20 09:00 102.1 86 18 99/46 (63) 100 01/06/20 08:11 110 106/54 01/06/20 08:00 79 18 99/46 (63) 100 01/06/20 08:00 Mechanical Ventilator 01/06/20 08:00 82 01/06/20 08:00 40 01/06/20 07:00 95 18 107/56 (73) 100 01/06/20 07:00 87 18 40 01/06/20 06:00 99 18 103/54 (70) 100 01/06/20 05:00 145 19 101/62 (75) 84 01/06/20 04:50 99 107/71 01/06/20 04:00 40 01/06/20 04:00 99.5 105 21 107/73 (84) 97 01/06/20 04:00 Mechanical Ventilator 01/06/20 03:39 99 01/06/20 03:10 99 18 40 01/06/20 03:00 94 19 113/57 (75) 100 01/06/20 02:00 95 19 101/56 (71) 100 01/06/20 01:00 134 24 107/71 (83) 96 01/06/20 00:00 100.0 126 25 92/61 (71) 97 01/06/20 00:00 133 01/06/20 00:00 40 01/06/20 00:00 Mechanical Ventilator 01/05/20 23:19 101 101/57 01/05/20 23:00 93 15 101/57 (72) 100 01/05/20 22:41 94 18 45 01/05/20 22:00 99 18 91/46 (61) 100 01/05/20 21:00 101 16 96/53 (67) 100 01/05/20 20:08 100 101/56 01/05/20 20:00 Mechanical Ventilator 01/05/20 20:00 98.8 91 17 85/52 (63) 100 01/05/20 20:00 50 01/05/20 19:35 97 01/05/20 19:32 102 18 60 01/05/20 19:00 92 18 97/57 (70) 100 01/05/20 18:00 97 18 107/64 (78) 100 01/05/20 17:26 81 96/57 01/05/20 17:00 88 20 96/57 (70) 100 01/05/20 17:00 81 19 96/57 (70) 100 ROS: unchanged from 12/12/19 HEENT: Orally intubated, Mechanically Ventilated, Thin secretions ET Tube, other - NGtube RHYTHM: NSR, ST LUNGS: diminished breath sounds, right-sided rhonchi CARDIAC: normal S1 and S2, irregularly irregular ABDOMEN: other - obese EXTREMITIES: moderate edema - mostly non pitting, other - hematoma right leg Laboratory Tests Test 01/05/20 17:18 01/06/20 04:30 01/06/20 05:08 01/06/20 07:39 POC Whole Blood Glucose 100 MG/DL (74-106) 135 MG/DL (74-106) H White Blood Count 2.6 K/UL (4.8-10.8) L Red Blood Count 2.58 M/UL (4.20-5.40) L Hemoglobin 7.5 G/DL (12.0-16.0) L Hematocrit 22.3 % (37.0-47.0) L Mean Corpuscular Volume 87 FL (80-99) Mean Corpuscular Hemoglobin 29.0 PG (27.0-31.0) Mean Corpuscular Hemoglobin Concent 33.5 G/DL (32.0-36.0) Red Cell Distribution Width 17.3 % (11.6-14.8) H Platelet Count 82 K/UL (150-450) L Mean Platelet Volume 6.8 FL (6.5-10.1) Neutrophils (%) (Auto) % (45.0-75.0) Lymphocytes (%) (Auto) % (20.0-45.0) Monocytes (%) (Auto) % (1.0-10.0) Eosinophils (%) (Auto) % (0.0-3.0) Basophils (%) (Auto) % (0.0-2.0) Differential Total Cells Counted 100 Neutrophils % (Manual) 69 % (45-75) Lymphocytes % (Manual) 20 % (20-45) Monocytes % (Manual) 9 % (1-10) Eosinophils % (Manual) 1 % (0-3) Basophils % (Manual) 1 % (0-2) Band Neutrophils 0 % (0-8) Platelet Estimate Decreased L Platelet Morphology Normal Hypochromasia 3+ Sodium Level 138 MMOL/L (136-145) Potassium Level 3.7 MMOL/L (3.5-5.1) Chloride Level 102 MMOL/L (98-107) Carbon Dioxide Level 33 MMOL/L (21-32) H Blood Urea Nitrogen 68 mg/dL (7-18) H Creatinine 1.7 MG/DL (0.55-1.30) H Estimat Glomerular Filtration Rate 30.0 mL/min (>60) Glucose Level 139 MG/DL (74-106) H Calcium Level 8.3 MG/DL (8.5-10.1) L Arterial Blood pH 7.532 (7.350-7.450) Arterial Blood Partial Pressure CO2 38.8 mmHg (35.0-45.0) Arterial Blood Partial Pressure O2 89.1 mmHg (75.0-100.0) Arterial Blood HCO3 31.8 mmol/L (22.0-26.0) H Arterial Blood Oxygen Saturation 96.5 % (95-100) Arterial Blood Base Excess 8.5 (-2-2) H Eugene Test Positive Assessment/Plan Assessment/Plan CRITICAL AND GUARDED Acute respiratory failure Acute on chronic respiratory acidosis AFiB with labile heart rates CHF, ac/chr diastolic BLE edema Sepsis with shock obesity COPD with bronchospasm Acute renal failure - worsening Pleural effusion GI bleeding Anemia - multifactorial Covid 19 PNA Hypokalemia Dehydration/hypernatremia Hypertension/HHD with labile BP - now lower range. Vent support Monitor acid/base parameters. Decrease anti-HTN regimen due to low BP - if heart rates go up, may need digoxin. Transfuse PRBC's. Antimicrobials Titrate rate-control meds - hold digitalis for elevated levels. Maintain diltiazem and metoprolol. DC apixaban - hold anticoagulation due to GI bleeding; resume with GI clearance. 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
[2020-01-06] MEDS: dilTIAZem HCl 60mg tab NG SCH ×2 (16:15→20:02)
--- NOTE | 2020-01-06 16:39 | NUR ---
NURSE NOTES: Bed bath given to patient, turned and repositioned. Large, soft bowel movement noted. Sacral dressing changed. Patient tolerated well, remains A. Fib on the heart monitor, HR 80-86.Tolerating vent settings well, O2 saturation at 100%.
--- NOTE | 2020-01-06 17:43 | Infectious Diseases Prog Note ---
Assessment/Plan Assessment/Plan ASSESSMENT AND PLAN: 1. hx esbl e.coli uti/pyelonephritis, sepsis, leukocytosis, fevers mrsa and vre colonization, NATALIE, respiratory distress/failure Fungemia - + yeast in blood - ID still pending mrsa pna/acinetobacter pna VRE uti covid-19 infection right leg swelling and redness noted, ? cellulitis, ? infected hematoma, ? wound infection + diarrhea - ? c.diff. - zyvox, polymyxin and flagyl - micafungin - da# 12/ post negative blood cultures - reculture patient for fevers, check c.diff. fo diarrhea - s/p remdesivir, on dexamethasone - monitor labs and chest x-ray - debridement right leg per surgery when patient stable - surveillance blood cultures negative - icu care, supportive care - d/w RN 2. Chronic kidney failure, acute renal failure. 3. COPD. 4. Pulmonary followup. 5. Renal followup. 6. History of falls. 7. Atrial fibrillation. Cardiology followup. 8. Obesity. 9. Gait disorder. 10. Schizophrenia. 11. Homeless. 12. Allergic to erythromycin, haloperidol, and vancomycin. 13. Social history is negative. 14. Family history is noncontributory. 15. MAR is noted. 16. Case discussed with RN. 17. Continue treatment per Dr. Dumont and consultants. Subjective Constitutional: Reports: fever, other - + vent, no pessors, + fevers HEENT: Reports: congestion Respiratory: Reports: shortness of breath Cardiovascular: Reports: other - no pressors Gastrointestinal/Abdominal: Denies: nausea, vomiting, diarrhea Genitourinary: Reports: other - + trivedi Neurologic: Reports: other - weak Psychiatric: Reports: other - NA Hematologic: Reports: other - NA Musculoskeletal: Reports: other - NA Allergies: Coded Allergies: ERYTHROMYCIN BASE (Verified Allergy, Severe, 12/12/19) HALOPERIDOL (Verified Allergy, Unknown, 12/12/19) VANCOMYCIN (Unverified Adverse Reaction, Intermediate, Shortness of Breath, 12/12/19) Objective Last 24 Hour Vital Signs Date Time Temp Pulse Resp B/P (MAP) Pulse Ox O2 Delivery O2 Flow Rate FiO2 01/06/20 17:00 85 17 97/51 (66) 100 01/06/20 16:15 67 89/47 01/06/20 16:00 40 01/06/20 16:00 Mechanical Ventilator 01/06/20 16:00 99.4 86 18 105/59 (74) 100 01/06/20 15:27 76 01/06/20 15:15 85 18 40 01/06/20 15:00 76 18 90/49 (63) 100 01/06/20 14:00 67 20 89/47 (61) 100 01/06/20 13:23 99.1 01/06/20 13:00 66 25 88/52 (64) 100 01/06/20 12:00 100.5 79 18 89/54 (66) 100 01/06/20 12:00 68 01/06/20 12:00 Mechanical Ventilator 01/06/20 12:00 40 01/06/20 11:37 94 96/51 01/06/20 11:00 84 18 96/51 (66) 100 01/06/20 11:00 85 18 40 01/06/20 10:00 82 18 81/52 (62) 100 01/06/20 09:31 100.5 01/06/20 09:24 100 01/06/20 09:00 102.1 86 18 99/46 (63) 100 01/06/20 08:11 110 106/54 01/06/20 08:00 79 18 99/46 (63) 100 01/06/20 08:00 Mechanical Ventilator 01/06/20 08:00 82 01/06/20 08:00 40 01/06/20 07:00 95 18 107/56 (73) 100 01/06/20 07:00 87 18 40 01/06/20 06:00 99 18 103/54 (70) 100 01/06/20 05:00 145 19 101/62 (75) 84 01/06/20 04:50 99 107/71 01/06/20 04:00 40 01/06/20 04:00 99.5 105 21 107/73 (84) 97 01/06/20 04:00 Mechanical Ventilator 01/06/20 03:39 99 01/06/20 03:10 99 18 40 01/06/20 03:00 94 19 113/57 (75) 100 01/06/20 02:00 95 19 101/56 (71) 100 01/06/20 01:00 134 24 107/71 (83) 96 9/27/20 00:00 100.0 126 25 92/61 (71) 97 01/06/20 00:00 133 01/06/20 00:00 40 01/06/20 00:00 Mechanical Ventilator 01/05/20 23:19 101 101/57 01/05/20 23:00 93 15 101/57 (72) 100 01/05/20 22:41 94 18 45 01/05/20 22:00 99 18 91/46 (61) 100 01/05/20 21:00 101 16 96/53 (67) 100 01/05/20 20:08 100 101/56 01/05/20 20:00 Mechanical Ventilator 01/05/20 20:00 98.8 91 17 85/52 (63) 100 01/05/20 20:00 50 01/05/20 19:35 97 01/05/20 19:32 102 18 60 01/05/20 19:00 92 18 97/57 (70) 100 01/05/20 18:00 97 18 107/64 (78) 100 Height (Feet): 5 Height (Inches): 6.00 Weight (Pounds): 298 General Appearance: other - on vent and no pressors HEENT: normocephalic, atraumatic, anicteric Respiratory/Chest: crackles/rales, rhonchi - bilaterally Cardiovascular: normal rate, regular rhythm, no gallop/murmur Abdomen: normal bowel sounds, soft, non tender, no organomegaly, non distended Genitourinary: other - + trivedi - urine slt cloudy Extremities: no cyanosis, other - right leg hematoma and redness and swelling Skin: no rash Neurologic/Psychiatric: motor weakness, other - letharg, on cindy t Lymphatic: no neck adenopathy Musculoskeletal: no effusion Chest x-ray - 11/17/19 - Procedure: XRAY Chest 1v Indication: Shortness of breath Technique: One view of the chest Comparison: 12/17/2019 Findings: The heart is enlarged. There is bilateral interstitial and airspace disease is again demonstrated, probably unchanged allowing for differences in degree of inspiration. Impression: Unchanged, over one day, findings as above. Chest x-ray - 12/21/19 - Procedure: XRAY Chest 1v Indication: Shortness of breath Technique: One view of the chest Comparison: 12/19/2019 Findings: The heart is enlarged. Bilateral extensive infiltrates are again demonstrated, stable to slightly worse allowing for differences in exposure technique. There is suggestion of increasing pleural fluid on the left. Nasogastric tube is again demonstrated. Impression: Stable to worsened bilateral extensive infiltrates, since exam of 2 days prior Increasing left pleural effusion Chest x-ray - 12/23/19 - IMPRESSION: 1. No significant interval change from the prior chest x-ray. 2. Persistent moderate left pleural effusion and mild right pleural effusion. 3. Pulmonary vascular congestion. 4. Persistent opacity in the left lung base, which may represent atelectasis versus pneumonia. Chest x-ray - 12/25/19 - Procedure: XRAY Chest 1v Procedure: XRAY Chest 1v Reason for study: Reason For Exam: SOB Comparison films: 12/24/2019. FINDINGS: The tracheal tube and NG tube remain in place. Vascular prominence and bilateral hazy alveolar densities are unchanged. Cardiomegaly and small effusions also unchanged. The bony thorax appear unremarkable. IMPRESSION: NO SIGNIFICANT CHANGE COMPARED TO PREVIOUS EXAM. 12/26/19 - Procedure: XRAY Chest 1v Procedure: XRAY Chest 1v Reason for study: Reason For Exam: SOB Comparison films: 12/25/2019. FINDINGS: Endotracheal tube and NG tube remain in place. Hazy bilateral alveolar densities are essentially unchanged given the difference in technique. Cardiomegaly and right effusion again noted. The bony thorax appear unremarkable. IMPRESSION: NO SIGNIFICANT CHANGE COMPARED TO PREVIOUS EXAM. Chest x-ray - 12/28/19 - Procedure: XRAY Chest 1v Indication: Reason For Exam: SOB Technique: Single AP view of the chest. Comparison: Chest radiograph dated 12/27/2019 Findings: Exam is again noted to be diagnostically limited due to underpenetration, patient rotation, and exclusion of part of the left hemithorax from the [id number]. Within these limitations: No significant change in appearance of visualized cardiomediastinal silhouette. Unchanged layering right pleural effusion with associated basilar airspace opacities. Likely retrocardiac consolidation, unchanged. No apical pneumothoraces. Unchanged enteric and endotracheal tubes. Unchanged left PICC. Chest x-ray - 12/30/19 - FINDINGS: Distal tip of ET tube is above devika. Distal tip of the enteric tube is in stomach. Stable left arm PICC line with distal tip likely in the left subclavian vein. Cardiac silhouette is within normal limits allowing for portable and rotated technique. Low lung volumes with elevated left hemidiaphragm. Again noted is a moderate right effusion with patchy infiltrates in the right mid to lower lung. Probable retrocardiac infiltrates. IMPRESSION: Little interval change in moderate right effusion and pneumonia/aspiration. Suspected retrocardiac infiltrate. The distal tip of the left arm PICC line is not well seen past the level of the left mid subclavian vein. Conover location is in the cavoatrial junction. Recommend advancement. <MYCVCSECTION> Chest x-ray - 01/04/20 - Procedure: XRAY Chest 1v Indication: Dyspnea Technique: One view of the chest Comparison: 01/02/2020 Findings: Bilateral interstitial and airspace congestion, right pleural effusion, cardiomegaly persists, unchanged. Tube and line positions are unchanged Impression: Unchanged, over one day, findings as above. Chest x-ray - 01/06/20 - IMPRESSION: 1. Endotracheal tube terminates in the region of the lower thoracic trachea, approximately 2.6 cm above the devika. Enteric tube is difficult to visualize distally. 2. Similar opacities predominantly in the mid and lower lungs which may represent combination of pleural effusions and atelectasis versus pneumonia versus edema. Microbiology Date/Time Source Procedure Growth Status 12/25/19 15:45 Blood Blood Culture - Preliminary NO GROWTH AFTER 4 DAYS Resulted 12/23/19 23:50 Nasopharynx SARS-CoV-2 RdRp Gene Assay - Final Complete 12/17/19 20:45 Indwelling Cath Urine Culture - Final Enterococcus Faecium - Vre Complete 12/12/19 21:00 Rectum - Final NO CARBAPENEM-RESISTANT ENTEROBACTERI... Complete Laboratory Tests Test 01/06/20 04:30 01/06/20 05:08 01/06/20 07:39 White Blood Count 2.6 K/UL (4.8-10.8) L Red Blood Count 2.58 M/UL (4.20-5.40) L Hemoglobin 7.5 G/DL (12.0-16.0) L Hematocrit 22.3 % (37.0-47.0) L Mean Corpuscular Volume 87 FL (80-99) Mean Corpuscular Hemoglobin 29.0 PG (27.0-31.0) Mean Corpuscular Hemoglobin Concent 33.5 G/DL (32.0-36.0) Red Cell Distribution Width 17.3 % (11.6-14.8) H Platelet Count 82 K/UL (150-450) L Mean Platelet Volume 6.8 FL (6.5-10.1) Neutrophils (%) (Auto) % (45.0-75.0) Lymphocytes (%) (Auto) % (20.0-45.0) Monocytes (%) (Auto) % (1.0-10.0) Eosinophils (%) (Auto) % (0.0-3.0) Basophils (%) (Auto) % (0.0-2.0) Differential Total Cells Counted 100 Neutrophils % (Manual) 69 % (45-75) Lymphocytes % (Manual) 20 % (20-45) Monocytes % (Manual) 9 % (1-10) Eosinophils % (Manual) 1 % (0-3) Basophils % (Manual) 1 % (0-2) Band Neutrophils 0 % (0-8) Platelet Estimate Decreased L Platelet Morphology Normal Hypochromasia 3+ Sodium Level 138 MMOL/L (136-145) Potassium Level 3.7 MMOL/L (3.5-5.1) Chloride Level 102 MMOL/L (98-107) Carbon Dioxide Level 33 MMOL/L (21-32) H Blood Urea Nitrogen 68 mg/dL (7-18) H Creatinine 1.7 MG/DL (0.55-1.30) H Estimat Glomerular Filtration Rate 30.0 mL/min (>60) Glucose Level 139 MG/DL (74-106) H Calcium Level 8.3 MG/DL (8.5-10.1) L POC Whole Blood Glucose 135 MG/DL (74-106) H Arterial Blood pH 7.532 (7.350-7.450) Arterial Blood Partial Pressure CO2 38.8 mmHg (35.0-45.0) Arterial Blood Partial Pressure O2 89.1 mmHg (75.0-100.0) Arterial Blood HCO3 31.8 mmol/L (22.0-26.0) H Arterial Blood Oxygen Saturation 96.5 % (95-100) Arterial Blood Base Excess 8.5 (-2-2) H Eugene Test Positive Current Medications Medications (Trade) Dose Ordered Sig/Shiraz Route PRN Reason Start Time Stop Time Status Last Admin Dose Admin Acetaminophen (Tylenol) 650 mg Q4H PRN NG Temp >100.5 12/22/19 16:00 01/11/20 22:14 01/04/20 18:19 Acetaminophen (Tylenol) 650 mg Q4H PRN NG Mild Pain (Pain Scale 1-3) 12/22/19 16:00 01/11/20 22:14 01/06/20 12:42 Acetazolamide (Diamox) 500 mg TWICE A DAY NG 01/02/20 18:00 02/01/20 17:59 01/06/20 08:12 Albuterol Sulfate (Proventil MDI) 2 puff Q4H PRN INH Shortness of Breath 12/24/19 10:30 03/23/20 10:29 Bacitracin (Bacitracin) 2 applic EVERY 12 HOURS TOPIC 01/06/20 21:00 03/12/20 08:59 Chlorhexidine Gluconate (Jessie-Hex 2%) 1 applic DAILY@1999 TOPIC 12/24/19 20:00 03/23/20 19:59 01/05/20 20:06 Chlorpromazine (Thorazine) 50 mg Q6H PRN IM agitation 12/30/19 02:30 01/29/20 02:29 01/06/20 03:38 Clotrimazole (Lotrimin) 1 applic EVERY 12 HOURS TOPIC 01/05/20 09:00 03/12/20 08:59 01/06/20 08:13 Dextrose (Dextrose 50%) 25 ml Q30M PRN IV Hypoglycemia 12/23/19 10:45 03/22/20 10:44 Dextrose (Dextrose 50%) 50 ml Q30M PRN IV Hypoglycemia 12/23/19 10:45 03/22/20 10:44 Diltiazem HCl (Cardizem Tab) 60 mg Q8HR NG 01/06/20 16:15 02/05/20 16:14 Docusate Sodium (Colace) 100 mg BID NG 12/25/19 09:00 01/24/20 08:59 01/06/20 08:12 Doxycycline Hyclate 100 mg/ Dextrose 100 ml @ 100 mls/hr Q12H IV 01/05/20 00:00 01/12/20 00:00 01/06/20 11:06 Enoxaparin Sodium (Lovenox) 60 mg DAILY SUBQ 12/23/19 09:00 03/22/20 08:59 12/29/19 08:50 Furosemide (Lasix) 100 mg Q6HR IV 01/05/20 12:00 01/30/20 11:59 01/06/20 11:05 Insulin Aspart (NovoLOG) EVERY 6 HOURS SUBQ 01/05/20 06:00 03/22/20 11:29 Iron Sucrose 100 mg/Sodium Chloride 60 ml @ 240 mls/hr BEDTIME IV 01/05/20 21:00 01/09/20 21:14 01/05/20 20:10 Magnesium Hydroxide (Mom) 30 ml HSPRN PRN NG Constipation 12/22/19 15:15 01/21/20 15:14 01/02/20 22:20 Meropenem 1 gm/ Sodium Chloride 55 ml @ 110 mls/hr Q12HR@0400,1600 IVPB 01/02/20 16:00 01/08/20 15:59 01/06/20 16:13 Metoclopramide HCl (Reglan) 5 mg Q6H IVP 01/05/20 09:15 02/04/20 09:14 01/06/20 13:16 Metoprolol Tartrate (Lopressor) 50 mg Q12HR NG 12/22/19 21:00 03/18/20 20:59 01/06/20 08:11 Micafungin Sodium 100 mg/Sodium Chloride 110 ml @ 110 mls/hr Q24H IVPB 01/05/20 09:00 01/14/20 08:59 01/06/20 08:11 Midazolam HCl (Versed 2mg/2ml vial) 2 mg Q1H PRN IVP For Anxiety 01/02/20 07:45 01/09/20 07:44 01/06/20 05:36 Nitroglycerin (Ntg) 0.4 mg Q5M PRN SL Prn Chest Pain 12/22/19 15:00 01/11/20 22:14 Ondansetron HCl (Zofran) 4 mg Q6H PRN IVP Nausea & Vomiting 12/22/19 15:15 01/11/20 15:14 Pantoprazole (Protonix) 40 mg EVERY 12 HOURS IVP 01/01/20 21:00 01/31/20 20:59 01/06/20 08:11 Polyethylene Glycol (Miralax) 17 gm BEDTIME NG 12/22/19 21:00 01/18/20 20:59 01/03/20 19:50 Polymyxin B Sulfate [id number] units/Dextrose 550 ml @ 550 mls/hr EVERY 12 HOURS IV 01/06/20 11:00 01/13/20 10:59 01/06/20 11:36 Potassium Chloride (K-Dur) 40 meq EVERY 12 HOURS NG 01/05/20 11:45 04/04/20 11:14 01/06/20 08:12 Quetiapine Fumarate (SEROqueL) 100 mg EVERY 8 HOURS ORAL 01/04/20 22:00 02/16/20 21:59 01/06/20 13:16 Aleisha Coronel MD Jan 06, 2020 17:43
--- NOTE | 2020-01-06 17:53 | General Progress Note ---
Subjective Allergies: Coded Allergies: ERYTHROMYCIN BASE (Verified Allergy, Severe, 12/12/19) HALOPERIDOL (Verified Allergy, Unknown, 12/12/19) VANCOMYCIN (Unverified Adverse Reaction, Intermediate, Shortness of Breath, 12/12/19) Subjective above noted patient seen in ICU d/w RN still with residuals Objective Last 24 Hour Vital Signs Date Time Temp Pulse Resp B/P (MAP) Pulse Ox O2 Delivery O2 Flow Rate FiO2 01/06/20 17:00 85 17 97/51 (66) 100 01/06/20 16:15 67 89/47 01/06/20 16:00 40 01/06/20 16:00 Mechanical Ventilator 01/06/20 16:00 99.4 86 18 105/59 (74) 100 01/06/20 15:27 76 01/06/20 15:15 85 18 40 01/06/20 15:00 76 18 90/49 (63) 100 01/06/20 14:00 67 20 89/47 (61) 100 01/06/20 13:23 99.1 01/06/20 13:00 66 25 88/52 (64) 100 01/06/20 12:00 100.5 79 18 89/54 (66) 100 01/06/20 12:00 68 01/06/20 12:00 Mechanical Ventilator 01/06/20 12:00 40 01/06/20 11:37 94 96/51 01/06/20 11:00 84 18 96/51 (66) 100 01/06/20 11:00 85 18 40 01/06/20 10:00 82 18 81/52 (62) 100 01/06/20 09:31 100.5 01/06/20 09:24 100 01/06/20 09:00 102.1 86 18 99/46 (63) 100 01/06/20 08:11 110 106/54 01/06/20 08:00 79 18 99/46 (63) 100 01/06/20 08:00 Mechanical Ventilator 01/06/20 08:00 82 01/06/20 08:00 40 01/06/20 07:00 95 18 107/56 (73) 100 01/06/20 07:00 87 18 40 01/06/20 06:00 99 18 103/54 (70) 100 01/06/20 05:00 145 19 101/62 (75) 84 01/06/20 04:50 99 107/71 01/06/20 04:00 40 01/06/20 04:00 99.5 105 21 107/73 (84) 97 01/06/20 04:00 Mechanical Ventilator 01/06/20 03:39 99 01/06/20 03:10 99 18 40 01/06/20 03:00 94 19 113/57 (75) 100 01/06/20 02:00 95 19 101/56 (71) 100 01/06/20 01:00 134 24 107/71 (83) 96 01/06/20 00:00 100.0 126 25 92/61 (71) 97 01/06/20 00:00 133 01/06/20 00:00 40 01/06/20 00:00 Mechanical Ventilator 01/05/20 23:19 101 101/57 01/05/20 23:00 93 15 101/57 (72) 100 01/05/20 22:41 94 18 45 01/05/20 22:00 99 18 91/46 (61) 100 01/05/20 21:00 101 16 96/53 (67) 100 01/05/20 20:08 100 101/56 01/05/20 20:00 Mechanical Ventilator 01/05/20 20:00 98.8 91 17 85/52 (63) 100 01/05/20 20:00 50 01/05/20 19:35 97 01/05/20 19:32 102 18 60 01/05/20 19:00 92 18 97/57 (70) 100 01/05/20 18:00 97 18 107/64 (78) 100 Intake and Output 01/05/20 01/06/20 19:00 07:00 Intake Total 920 ml 700 ml Output Total 320 ml 1450 ml Balance 600 ml -750 ml Free Water 80 ml IV Total 815 ml 215 ml Tube Feeding 45 ml 405 ml Other 60 ml Output Urine Total 320 ml 1450 ml Laboratory Tests 01/06/20 04:30: White Blood Count 2.6L, Red Blood Count 2.58L, Hemoglobin 7.5L, Hematocrit 22.3L , Mean Corpuscular Volume 87, Mean Corpuscular Hemoglobin 29.0, Mean Corpuscular Hemoglobin Concent 33.5, Red Cell Distribution Width 17.3H, Platelet Count 82L, Mean Platelet Volume 6.8, Neutrophils (%) (Auto) , Lymphocytes (%) (Auto) , Monocytes (%) (Auto) , Eosinophils (%) (Auto) , Basophils (%) (Auto) , Differential Total Cells Counted 100, Neutrophils % (Manual) 69, Lymphocytes % (Manual) 20, Monocytes % (Manual) 9, Eosinophils % (Manual) 1, Basophils % (Manual) 1, Band Neutrophils 0, Platelet Estimate DecreasedL, Platelet Morphology Normal, Hypochromasia 3+, Sodium Level 138, Potassium Level 3.7, Chloride Level 102, Carbon Dioxide Level 33H, Blood Urea Nitrogen 68H, Creatinine 1.7H, Estimat Glomerular Filtration Rate 30.0, Glucose Level 139H, Calcium Level 8.3L 01/06/20 05:08: POC Whole Blood Glucose 135H 01/06/20 07:39: Arterial Blood pH 7.532H, Arterial Blood Partial Pressure CO2 38.8, Arterial Blood Partial Pressure O2 89.1, Arterial Blood HCO3 31.8H, Arterial Blood Oxygen Saturation 96.5, Arterial Blood Base Excess 8.5H, Eugene Test Positive Height (Feet): 5 Height (Inches): 6.00 Weight (Pounds): 298 Objective Obese WW Resting comfortably NCAT Intubated (+) NGT Chest coarse BS CV RR abd obese soft no edema Assessment/Plan Status: stable Assessment/Plan: Assessment/Plan Problem List: (1) CKD (chronic kidney disease) stage 3, GFR 30-59 ml/min ICD Codes: N18.3 - Chronic kidney disease, stage 3 (moderate) SNOMED: 733474823 (2) COPD / Respiratory failure ICD Codes: J44.9 - Chronic obstructive pulmonary disease, unspecified SNOMED: 72444547 (3) Smoker ICD Codes: F17.200 - Nicotine dependence, unspecified, uncomplicated SNOMED: 22068619 (4) GERD (gastroesophageal reflux disease) ICD Codes: K21.9 - Gastro-esophageal reflux disease without esophagitis SNOMED: 796171162 (5) Atrial fibrillation with RVR ICD Codes: I48.91 - Unspecified atrial fibrillation SNOMED: 528424195915880 (6) TF intolerance Assessment/Plan: Dysphagia --> s/p ngt placement ppi bid fu H&H monitor labs bowel regimen needs clearance for GI procedures will try a different feeding formula on Lovenox Khorrfelipe,Payman MD Jan 06, 2020 17:53
--- NOTE | 2020-01-06 18:11 | NUR ---
NURSE NOTES: Patient noted to have diarrhea, patient cleaned and linen's changed.
--- NOTE | 2020-01-06 18:15 | NUR ---
NURSE NOTES: Tube feeding changed from Glucerna 1.5 to Vital AF, goal if 45cc/hr.
[2020-01-06 18:40] LABS: APPEARANCE,URINE CLEAR; BILIRUBIN, URINE NEGATIVE (NEGATIVE); GLUCOSE, URINE (UA) NEGATIVE (NEGATIVE); KETONES,URINE 1+ (NEGATIVE); LEUKOCYTE ESTERASE ,URINE 1+ (NEGATIVE); NITRITE,URINE NEGATIVE (NEGATIVE); PH,URINE 6.5 (4.5-8.0); PROTEIN,URINE 1+ (NEGATIVE); UROBILINOGEN,URINE 12 MG/DL (0.0-1.0)
[2020-01-06 18:45] LABS: COLOR,URINE YELLOW
--- NOTE | 2020-01-06 19:09 | NUR ---
NURSE HAND-OFF REPORT: Latest Vital Signs: Temperature 99.4 , Pulse 87 , B/P 101 /55 , Respiratory Rate 18 , O2 SAT 100 , Mechanical Ventilator, O2 Flow Rate . Vital Sign Comment: EKG Rhythm: Atrial Fibrillation Rhythm change?: N Notified?: N Response: Latest Abreu Fall Score: 75 Fall Risk: High Risk Safety Measures: Call light Within Reach, Bed Alarm Zone 2, Side Rails Side Rails x3, Bed position Low and Locked. Fall Precautions: Yellow Socks Report given to Jaden COHEN.
--- NOTE | 2020-01-06 19:30 | NUR ---
NURSE NOTES: Received patient and report from Jay RN. Patient is observed resting in bed and remains lethargic, No pain noted upon assessment. Pt is orally intubated ett size 7.5 and noted to be 24 @ lip. Pt appears to be tolerating current vent settings well, vent settings as follows: AC 18, TV 600 FiO2 40% PEEP 5 with an O2 saturation of 99% noted at this time. Bilateral lower lobe breath sounds noted to be diminished upon auscultation. Pt noted to be AFib on tele monitor with a HR of 88 with no s/sx of acute cardiac distress noted. Left upper arm PICC line noted which remains asymptomatic, intact and patent. Central line dressing remains clean, dry and intact. VS obtained and noted to be stable at this time. NG tube noted to the L nare which remains secured, intact, and patent. GT feeding Vital 1.5 at 25ml/hr. Active bowel sounds noted in all four quadrants; abdomen remains large, round and soft. Lockett catheter noted and draining to gravity with yellow urine in collection bag. Diagnostics reviewed at bedside. Skin alterations noted. Fall, Aspiration, Seizure and Skin precautions observed. Pt remains resting in bed; Bed remains in the lowest position with the safety wheels engaged, call light within reach, side rails up x3 and bed alarm activated. Will continue plan of care. Will continue to monitor.
[2020-01-06] MEDS: Iron Sucrose 100 MG in NS 55 ML IV SCH (19:59)
[2020-01-06] MEDS: Dyna-Hex 2% Top Sol 2oz TOPIC SCH (20:00)
--- NOTE | 2020-01-06 20:00 | NUR ---
NURSE NOTES: Patient noted to have temperature of 100.8F (ax). Cooling measures were provided and Tylenol 650mg via OGT. Patient repositioned and provided oral care. Patient is restless and agitated. Versed 2 mg given for agitation.
[2020-01-06] MEDS: Miralax 17gm pkt NG SCH (20:02)
[2020-01-06] MEDS: Bacitracin Oint UD TOPIC SCH (20:02)
--- NOTE | 2020-01-06 21:00 | NUR ---
NURSE NOTES: Temperature now after tylenol is 99.6F (ax). Patient is calm and not agitated anymore after versed was given.
[2020-01-06] MEDS: metroNIDAZOLE 500mg tab ORAL SCH (21:42)
--- NOTE | 2020-01-06 22:00 | NUR ---
NURSE NOTES: Bedside assessment performed, assessed pt with a FLACC scale of 0 noted. VS obtained and remain stable at this time. Neuro assessment remains consistent with previous physical assessment findings. Pt provided with education but remains unable to comprehend and follow commands at this time, patient calm and sleeping at this time. CMS remains intact and ROM exercises provided. Pt remains calm, comfortable, clean and dry. Pt repositioned for comfort and safety. Fall, Aspiration and Skin precautions observed. Pt remains resting in bed; Bed remains in the lowest position with the safety wheels engaged, call light within reach, side rails up x3 and bed alarm activated. Will continue plan of care. Will continue to monitor.
[2020-01-07] VITALS (26 sets, daily range): BP systolic 85–165; BP diastolic 44–146
--- NOTE | 2020-01-07 | NUR ---
NURSE NOTES: Bedside assessment performed, assessed pt with a FLACC scale of 0 noted. VS obtained, temperature of 99.3F. Remains stable at this time. Neuro assessment remains consistent with previous physical assessment findings. Bilateral soft wrist reinitiated for patient safety, as patient noted to try to reach for necessary tubings, Accucheck noted to be 135, no coverage needed. Pt provided with education but remains unable to comprehend and follow commands at this time. CMS remains intact and ROM exercises provided. Pt provided with a partial bed bath and oral care. Pt remains calm, comfortable, clean and dry. Pt repositioned for comfort and safety. Fall, Aspiration and Skin precautions observed. Pt remains resting in bed; Bed remains in the lowest position with the safety wheels engaged, call light within reach, side rails up x3 and bed alarm activated. Will continue plan of care. Will continue to monitor.
[2020-01-07] MEDS: Metoclopramide 10mg/2ml Inj IVP SCH ×4 (02:35→21:00)
[2020-01-07] MEDS: Midazolam 2mg/2ml Inj IVP PRN ×5 (02:35→23:36)
[2020-01-07] MEDS: Acetaminophen 650mg/20.3ml NG PRN (02:36)
[2020-01-07] MEDS ORDERED: Meropenem 1 GM in NS 55 ML IVPB SCH (04:00)
[2020-01-07] MEDS: metroNIDAZOLE 500mg tab ORAL SCH ×3 (05:21→21:26)
[2020-01-07] MEDS: dilTIAZem HCl 60mg tab NG SCH ×3 (05:21→21:25)
[2020-01-07 05:35] LABS: HEMATOCRIT 22.2 % (37.0-47.0); HEMOGLOBIN 7.1 G/DL (12.0-16.0); MEAN CORPUSCULAR VOLUME 89 FL (80-99); PLATELET COUNT 91 K/UL (150-450); RED BLOOD COUNT 2.51 M/UL (4.20-5.40); RED CELL DISTRIBUTION WIDTH 17.7 % (11.6-14.8); WHITE BLOOD COUNT 2.9 K/UL (4.8-10.8)
[2020-01-07 05:39] LABS: CALCIUM 8.1 MG/DL (8.5-10.1); CREATININE 1.7 MG/DL (0.55-1.30); POTASSIUM 3.8 MMOL/L (3.5-5.1)
[2020-01-07] MEDS: NovoLOG Insulin Flexpen SUBQ SCH ×3 (06:00→18:04)
--- NOTE | 2020-01-07 06:00 | NUR ---
NURSE NOTES: Bedside assessment performed, assessed pt with a FLACC scale of 0 noted. Glucose checked to be 125, no insulin coverage needed. VS obtained and remain stable at this time. Neuro assessment remains consistent with previous physical assessment findings. Patient does get agitated at times. Versed has been administered to relieved some of the agitation. Bilateral soft wrist remains remains in place for patient safety. Pt provided with education but remains unable to comprehend and follow commands at this time. CMS remains intact and ROM exercises provided. Pt provided with a partial bed bath and oral care. Pt remains calm, comfortable, clean and dry. Pt repositioned for comfort and safety. Fall, Aspiration and Skin precautions observed. Pt remains resting in bed; Bed remains in the lowest position with the safety wheels engaged, call light within reach, side rails up x3 and bed alarm activated. Will continue plan of care. Will continue to monitor.
--- NOTE | 2020-01-07 07:00 | NUR ---
HAND-OFF: Report given to Jay COHEN.
--- NOTE | 2020-01-07 07:18 | NUR ---
NURSE NOTES: Received patient from Jaden COHEN. Patient is asleep. A. Fib on the heart monitor, HR 98-106. Receiving oxygen via ET tube 7.5 24cm at the gum line, vent settings: AC 18, TV 600, FiO2 40%, PEEP 5. Right Nares NGT is intact and receiving Vital AF at 45cc/hr. IV site is Left Upper Arm PICC patent and intact. Lockett catheter is intact and draining. Bed is locked, placed in lowest position, side rails up x3, bed alarm on, head of bed elevated. Will continue to monitor.
--- NOTE | 2020-01-07 07:47 | NUR ---
NURSE NOTES: Patient seen and assessed by Dr. Tierney.
[2020-01-07] MEDS: Pantoprazole Inj IVP SCH ×2 (08:13→20:59)
[2020-01-07] MEDS: Polymyxin B Sulfate 500,000 UNITS in D5W 500ml 550 ML IV SCH ×2 (08:13→20:59)
[2020-01-07] MEDS: Micafungin 100 MG in NS 110 ML IVPB SCH (08:13)
[2020-01-07] MEDS: Bacitracin Oint UD TOPIC SCH ×2 (08:14→20:59)
[2020-01-07] MEDS: Docusate 100mg/10ml Liq NG SCH ×2 (09:00→18:04)
[2020-01-07] MEDS: Enoxaparin 60mg Inj SUBQ SCH (09:00)
[2020-01-07] MEDS: Metoprolol Tartrate 50mg tab NG SCH ×2 (09:00→21:01)
--- NOTE | 2020-01-07 09:04 | NUR ---
NURSE NOTES: Prescribed Metoprolol held due to hypotension BP 89/57, Lovenox held due to Low Platelet count, and Colace held due to patient having diarrhea. Other prescribed medications given as prescribed, no adverse reaction. Patient is afebrile axillary temperature 98.2 degrees. Oral care given, endotracheal suctioning done, thick meléndez secretions removed.
--- NOTE | 2020-01-07 09:21 | Nephrology Progress Note ---
Assessment/Plan Status: stable Assessment/Plan: A/P 1)CKD 3B - Cr stable at 1.7 - avoid nephrotoxins. 2) Atrial fibrillation RVR - Congestive heart failure. - mgmt per cardiology 3) Resp FL- intubated, COVID + - mgmt per ID -being diuresed with lasix and diamox 4) Sepsis- Abx mgmt per ID Subjective Date patient seen: Jan 07, 2020 Time patient seen: 09:18 ROS Limited/Unobtainable: Yes Allergies: Coded Allergies: ERYTHROMYCIN BASE (Verified Allergy, Severe, 12/12/19) HALOPERIDOL (Verified Allergy, Unknown, 12/12/19) VANCOMYCIN (Unverified Adverse Reaction, Intermediate, Shortness of Breath, 12/12/19) Subjective Patient intubated on the vent in COVID isolation Objective Last 24 Hour Vital Signs Date Time Temp Pulse Resp B/P (MAP) Pulse Ox O2 Delivery O2 Flow Rate FiO2 01/07/20 09:00 78 18 89/57 (68) 100 01/07/20 08:00 40 01/07/20 08:00 Mechanical Ventilator 01/07/20 08:00 98.2 82 18 85/59 (68) 100 01/07/20 07:28 80 18 40 01/07/20 07:00 75 18 96/57 (70) 100 01/07/20 06:00 88 36 97/57 (70) 100 01/07/20 05:21 98 109/56 01/07/20 05:00 89 18 102/87 (92) 100 01/07/20 04:00 Mechanical Ventilator 01/07/20 04:00 40 01/07/20 04:00 105 01/07/20 04:00 99.8 93 18 95/56 (69) 99 01/07/20 03:28 98 21 40 01/07/20 03:21 105 01/07/20 03:06 99.3 01/07/20 03:00 111 21 125/61 (82) 98 01/07/20 02:00 84 18 107/56 (73) 100 01/07/20 01:00 83 19 106/52 (70) 100 01/07/20 00:00 80 18 86/44 (58) 100 01/07/20 00:00 40 01/07/20 00:00 Mechanical Ventilator 01/06/20 23:31 94 01/06/20 23:15 82 19 40 01/06/20 23:00 84 16 111/61 (78) 98 01/06/20 22:00 79 18 101/62 (75) 100 01/06/20 21:08 76 18 88/72 (77) 100 01/06/20 21:05 71 18 89/42 (58) 100 01/06/20 21:00 99.6 83 18 79/56 (64) 100 01/06/20 20:30 99.9 01/06/20 20:02 88 101/55 01/06/20 20:01 88 101/55 01/06/20 20:00 Mechanical Ventilator 01/06/20 20:00 40 01/06/20 20:00 100.8 87 18 107/61 (76) 100 01/06/20 19:32 88 18 40 01/06/20 19:14 88 01/06/20 19:00 87 18 101/55 (70) 100 01/06/20 18:26 Mechanical Ventilator 01/06/20 18:00 86 18 106/49 (68) 100 01/06/20 17:00 85 17 97/51 (66) 100 01/06/20 16:15 67 89/47 01/06/20 16:00 40 01/06/20 16:00 Mechanical Ventilator 01/06/20 16:00 99.4 86 18 105/59 (74) 100 01/06/20 15:27 76 01/06/20 15:15 85 18 40 01/06/20 15:00 76 18 90/49 (63) 100 01/06/20 14:00 67 20 89/47 (61) 100 01/06/20 13:23 99.1 01/06/20 13:00 66 25 88/52 (64) 100 01/06/20 12:00 100.5 79 18 89/54 (66) 100 01/06/20 12:00 68 01/06/20 12:00 Mechanical Ventilator 01/06/20 12:00 40 01/06/20 11:37 94 96/51 01/06/20 11:00 84 18 96/51 (66) 100 01/06/20 11:00 85 18 40 01/06/20 10:00 82 18 81/52 (62) 100 01/06/20 09:31 100.5 01/06/20 09:24 100 Intake and Output 01/06/20 01/07/20 19:00 07:00 Intake Total 925 ml 1390 ml Output Total 1225 ml 1565 ml Balance -300 ml -175 ml Free Water 90 ml IV Total 815 ml 910 ml Tube Feeding 110 ml 390 ml Output Urine Total 1225 ml 1565 ml # Bowel Movements 3 Laboratory Tests 01/06/20 18:05: Urine Color Yellow, Urine Appearance Clear, Urine pH 6.5, Urine Specific Erwin 1.005, Urine Protein 1+H, Urine Glucose (UA) Negative, Urine Ketones 1+H, Urine Blood Negative, Urine Nitrite Negative, Urine Bilirubin Negative, Urine Urobilinogen 12H, Urine Leukocyte Esterase 1+H, Urine RBC 0-2, Urine WBC 2-4, Urine Squamous Epithelial Cells Few, Urine Bacteria Few 01/07/20 04:30: White Blood Count 2.9L, Red Blood Count 2.51L, Hemoglobin 7.1L, Hematocrit 22.2L , Mean Corpuscular Volume 89, Mean Corpuscular Hemoglobin 28.2, Mean Corpuscular Hemoglobin Concent 31.8L, Red Cell Distribution Width 17.7H, Platelet Count 91L, Mean Platelet Volume 7.0, Neutrophils (%) (Auto) , Lymphocytes (%) (Auto) , Monocytes (%) (Auto) , Eosinophils (%) (Auto) , Basophils (%) (Auto) , Differential Total Cells Counted 100, Neutrophils % (Manual) 69, Lymphocytes % (Manual) 25, Monocytes % (Manual) 4, Eosinophils % (Manual) 2, Basophils % (Manual) 0, Band Neutrophils 0, Platelet Estimate DecreasedL, Platelet Morphology Normal, Polychromasia 1+, Hypochromasia 1+, Anisocytosis 1+, Sodium Level 139, Potassium Level 3.8, Chloride Level 103, Carbon Dioxide Level 30, Anion Gap 6, Blood Urea Nitrogen 58H, Creatinine 1.7H, Estimat Glomerular Filtration Rate 30.0, Glucose Level 112H, Calcium Level 8.1L 01/07/20 07:28: Arterial Blood pH 7.511H, Arterial Blood Partial Pressure CO2 40.9, Arterial Blood Partial Pressure O2 116.6H, Arterial Blood HCO3 32.0H, Arterial Blood Oxygen Saturation 97.7, Arterial Blood Base Excess 8.2H, Eugene Test Positive Height (Feet): 5 Height (Inches): 6.00 Weight (Pounds): 298 Objective In COVID isolation Poli Grant MD Jan 07, 2020 09:21
--- NOTE | 2020-01-07 09:56 | Pulmonolgy Critical Care Note ---
Luz Bowen TUB RIDER 01/07/20 0956: Critical Care - Asmt/Plan Assessment/Plan: ASSESSMENT acute hypoxemic hypercapnic resp failure, requiring intubation 12/22 failure to wean COVID 19 PNA sepsis fungemia UTI with E coli ESBL UTI VRE possible aspiration PNA Moderate R pleural effusion COPD Bronchospasm Atrial fibrillation with rapid ventricular response Congestive heart failure Acute renal failure on CKD Severe anemia Probable GI bleeding Thrombocytopenia Status post ground fall Tobacco dependency Morbid obesity probably GARY Homeless R knee edema and hematoma, likely sprain /strain post fall PLAN OF CARE ICU intubated 12/22 MDI Albuterol in line with vent fup with CXR and ABG ABG this am noted will put on CPAP PS 8 until seen by my supervising physician ( as discussed ) started on weaning trials with high PS settings as ordered, goal MV 10 tolerated 6 hrs 01/02, continue as tolerated, afterwards not tolerating weaning, will need trach meantime put on CPAP PS 8 as above CXR 01/03 no sign change CXR 01/05 noted, CXR for thsiu am pending thoracentesis pending off Fentanyl given low BP sedation with Versed prn s/p steroids IV ( started 12/23) continue for total of 10 days till 01/02 s/p Remdesivir (started 12/24 ), dc 12/30 initial diagnoses with COVID 19 at [facility] 11/29, was not hypoxic and not intubated, was not treated with Remdesivivr , only received empiric abx for PNA sedation with Fentanyl gtt and versed prn - DVT prophylaxis with Lovenox prior Venous Duplex BLE -NGT COVID 19 by PCR 12/22 positive isolation IL 6 52 , initial CRP 15.6, ferritin 769, fup with inflammatory markers CRP 12/29 - down to 11.8 ; ferritin down to 503 CRP 01/03 -10.7 on diuresis with Lasix , monitor volumes closely creat remains stable rate control- per cardio recs: monitor volumes pro BNP trending down ECHO with pEF no evidence of WMA GI prophylaxis with PPI s/p Venofer x 2 s/p blood transfusion 12/25 monitor HH with goal to keep Hgb >7 s/p 1 u PRBC 01/01 now on IV Venofer x5 days ( 01/04- GI procedure when stable monitor PLT counts renal US no hydro, BL nonobstructive stones s/p IV hydration, now resumed again per nephro monitor renal parameters, lytes , e/lyte management as per nephro recs creat stable UCX 12/11 + E coli ESBL, BCX 12/16 1/2 + yeast, fup with yeast ID, ? source BCX 12/17 NGTD BCX 12/22 and 12/24 NGTD UCX 12/16 VRE SCX 12/19 MRSA, ACB MDR now on micafungin , Polymyxin , Zyvox and Flagyl -as per ID recs; cooling blanket prn fevers prior X ray R knee given fall 12/15 , large hematoma, swelling-no fx or dislocation ice R knee and elevate CT head no acute IC pathology fall precautions prior declined Nicotine patch discussion on weight loss if receptive - not at this time; anxious and wants to go home pain management anxiolytic prn SW consult for placement evaluated by bioethics -> DNR/DNI status appropriate given current critical condition , grave prognosis and multiple comorbidities, would recommend DNR/DNI status as well now DNR/DNI status case discussed and evaluated by supervising physician ivy mccarty for a consult! Critical Care - Objective Last 24 Hour Vital Signs Date Time Temp Pulse Resp B/P (MAP) Pulse Ox O2 Delivery O2 Flow Rate FiO2 01/07/20 09:00 78 18 89/57 (68) 100 01/07/20 08:03 75 01/07/20 08:00 40 01/07/20 08:00 Mechanical Ventilator 01/07/20 08:00 98.2 82 18 85/59 (68) 100 01/07/20 07:28 80 18 40 01/07/20 07:00 75 18 96/57 (70) 100 01/07/20 06:00 88 36 97/57 (70) 100 01/07/20 05:21 98 109/56 01/07/20 05:00 89 18 102/87 (92) 100 01/07/20 04:00 Mechanical Ventilator 01/07/20 04:00 40 01/07/20 04:00 105 01/07/20 04:00 99.8 93 18 95/56 (69) 99 01/07/20 03:28 98 21 40 01/07/20 03:21 105 01/07/20 03:06 99.3 01/07/20 03:00 111 21 125/61 (82) 98 01/07/20 02:00 84 18 107/56 (73) 100 01/07/20 01:00 83 19 106/52 (70) 100 01/07/20 00:00 80 18 86/44 (58) 100 01/07/20 00:00 40 01/07/20 00:00 Mechanical Ventilator 01/06/20 23:31 94 01/06/20 23:15 82 19 40 01/06/20 23:00 84 16 111/61 (78) 98 01/06/20 22:00 79 18 101/62 (75) 100 01/06/20 21:08 76 18 88/72 (77) 100 01/06/20 21:05 71 18 89/42 (58) 100 01/06/20 21:00 99.6 83 18 79/56 (64) 100 01/06/20 20:30 99.9 01/06/20 20:02 88 101/55 01/06/20 20:01 88 101/55 01/06/20 20:00 Mechanical Ventilator 01/06/20 20:00 40 01/06/20 20:00 100.8 87 18 107/61 (76) 100 01/06/20 19:32 88 18 40 01/06/20 19:14 88 01/06/20 19:00 87 18 101/55 (70) 100 01/06/20 18:26 Mechanical Ventilator 01/06/20 18:00 86 18 106/49 (68) 100 01/06/20 17:00 85 17 97/51 (66) 100 01/06/20 16:15 67 89/47 01/06/20 16:00 40 01/06/20 16:00 Mechanical Ventilator 01/06/20 16:00 99.4 86 18 105/59 (74) 100 01/06/20 15:27 76 01/06/20 15:15 85 18 40 01/06/20 15:00 76 18 90/49 (63) 100 01/06/20 14:00 67 20 89/47 (61) 100 01/06/20 13:23 99.1 01/06/20 13:00 66 25 88/52 (64) 100 01/06/20 12:00 100.5 79 18 89/54 (66) 100 01/06/20 12:00 68 01/06/20 12:00 Mechanical Ventilator 01/06/20 12:00 40 01/06/20 11:37 94 96/51 01/06/20 11:00 84 18 96/51 (66) 100 01/06/20 11:00 85 18 40 01/06/20 10:00 82 18 81/52 (62) 100 Objective: CONDITION: critical General Appearance: morbidly obese , sedated, anasarca ; on vent AC 600-18-40% PEEP 5 Lines, tubes and drains: LUE PICC new , intact HEENT: normocephalic, atraumatic, anicteric, NGT in , OP with ET Neck: non-tender Respiratory/Chest: chest wall non-tender, no accessory muscle use, scattered rhonchi Cardiovascular/Chest: irregularly irregular - A fib , tachy at times , distant heart sounds, Abdomen: normal bowel sounds, non tender , obese, soft : Lockett Extremities: no calf tenderness, moderate edema - +3 BLE, R knee with large hematoma, edema, Skin Exam: warm/dry, multiple tattoos Neurologic: sedated Musculoskeletal: normal muscle bulk Accucheck: 125 Critical Care - Subjective ROS Limited/Unobtainable: Yes Interval Events: fevers still alst night, currently afebrile and leukopenic failure to wean from vent ABG this an d anf CXR 01/05 noted CXR for this am pending Hgb down to 7.1 plan for trach Condition: critical IV Access: PICC - LUE PICC intact EKG Rhythm: Atrial Fibrillation FI02: 40 Vent Support Breath Rate: 18 Vent Support Mode: AC Vent Tidal Volume: 600 Sputum Amount: Small PEEP: 5.0 PIP: 36 Tube Feeding Amount: 45 I&O: Intake and Output 01/06/20 01/07/20 19:00 07:00 Intake Total 925 ml 1390 ml Output Total 1225 ml 1565 ml Balance -300 ml -175 ml Free Water 90 ml IV Total 815 ml 910 ml Tube Feeding 110 ml 390 ml Output Urine Total 1225 ml 1565 ml # Bowel Movements 3 CXR: CXR 01/05 1. Endotracheal tube terminates in the region of the lower thoracic trachea, approximately 2.6 cm above the devika. Enteric tube is difficult to visualize distally. 2. Similar opacities predominantly in the mid and lower lungs which may represent combination of pleural effusions and atelectasis versus pneumonia versus edema. ET-Tube: 7.5 ET Position: 24 Igor Carpio MD 01/07/20 1504: Critical Care - Asmt/Plan Assessment/Plan: Patient seen and examined with TUB RIDER. Agree with above A&P as it reflects our joint deliberations. D/W Dr. Kahn, effusion better, hold off on thora, CCM, CPAP trial, if unable to extubate next 1-2 days will need trach Time Spent (Minutes): 40 Luz Bowen NP Jan 07, 2020 09:56 Igor Carpio MD Jan 07, 2020 15:04
--- NOTE | 2020-01-07 10:25 | NUR ---
NURSE NOTES: Patient's O2 saturation decreased to 86%. Endotracheal suctioning done, thick meléndez secretions removed, patient tolerated well, O2 saturation at 100% post endotracheal suction.
--- NOTE | 2020-01-07 10:56 | NUR ---
NURSE NOTES: Patient placed on CPAP mode, Pressure Support 8, Rate 18, TV 600, FiO2 40%, PEEP 5. Patient tolerating well, O2 saturation 98%.
--- NOTE | 2020-01-07 12:03 | NUR ---
NURSE NOTES: Novolog held, patient's fingerstick blood glucose 111 mg/dL. Oral care given, endotracheal suctioning done. Patient remains on CPAP mode on the ventilator, O2 saturation at 100%.
--- NOTE | 2020-01-07 15:24 | NUR ---
NURSE NOTES: Bed bath given to patient, turned and repositioned. No bowel movement noted.
--- NOTE | 2020-01-07 16:33 | Diagnostic Imaging Report ---
Indication: Shortness of breath Technique: One view of the chest Comparison: 01/06/2020 Findings: Stable satisfactory positions of endotracheal and orogastric tubes. Mild interstitial congestion and hazy ankle opacities are again demonstrated bilaterally. There appears to be a small amount of pleural fluid bilaterally, probably unchanged. Impression: Unchanged, over one day, findings as above.
--- NOTE | 2020-01-07 16:57 | NUR ---
CASE MANAGEMENT:REVIEW 01/07/20 SI: SEPSIS . ATRIAL FIBRILLATION W/ RVR . COVID PNA ~ INTUBATED 99.8 105 93 18 95/56 99% ON VENT SUPPORT W/40% FIO2 WBC-2.9 H/H-7.1/22.2 PLT-91 BUN+58 CR+1.7 FERR 871 ABG: pH 7.511 pO2 116.6 HCO3 32.0 IS: IV FLAGYL TID IV ZYVOX BID IV POLYMYXIN B BID IV LASIX Q6HR SEROQUEL PO TID IV VERSED Q1HR/PRN K-DU NG BID CARDIZEM NG TID CHEST X-RAY- Unchanged, over one day, findings as above.Endotracheal tube terminates in the region of the lower thoracic trachea, approximately 2.6 cm above the devika. Enteric tube is difficult to visualize distally. Similar opacities predominantly in the mid and lower lungs which may represent combination of pleural effusions and atelectasis versus pneumonia versus edema. : ICU STATUS PLAN: FAILURE TO WEAN
--- NOTE | 2020-01-07 18:15 | NUR ---
NURSE NOTES: Patient's HR went to 160-180, A. fib with RVR on the monitor. Left message to Dr. Meek's office.
--- NOTE | 2020-01-07 18:26 | NUR ---
NURSE NOTES: Made second call to Dr. Meek's office. Covering , Dr. Ribeiro was informed patient went A.fib with RVR, HR 160-180. 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
--- NOTE | 2020-01-07 18:28 | NUR ---
NURSE NOTES: Received call back from Dr. Meek. Orders received.
[2020-01-07] MEDS ORDERED: dilTIAZem HCl 25mg/5ml Inj IVP SCH ×2 (18:30→19:30)
[2020-01-07] MEDS ORDERED: NS 500ML ONE (18:50)
[2020-01-07] MEDS ORDERED: Tubing IV Secondary IV ONE (18:50)
--- NOTE | 2020-01-07 19:01 | NUR ---
RESPIRATORY NOTE: Received Pt weaning on CPAP PS 8, PEEP +5, 40%. Bedside RN called to place pt back on previous settings. Pt now on AC 18, 600VT, 40%, PEEP +5. Pt is intubated 7.5 @ 24cm lipline, secured by anchorfast. Pt restless, just received sedation. B/S heidi. rhonchi, sxn moderate to large amounts of thick, meléndez-brown secretions. Vent plugged into red outlet, [place] at bedside. Pt in no resp. distress at this time. Will continue to monitor pt.
--- NOTE | 2020-01-07 19:20 | NUR ---
NURSE HAND-OFF REPORT: Latest Vital Signs: Temperature 98.8 , Pulse 138 , B/P 135 /69 , Respiratory Rate 25 , O2 SAT 97 , Mechanical Ventilator, O2 Flow Rate . Vital Sign Comment: EKG Rhythm: Atrial Fibrillation Rhythm change?: N Notified?: N -MD Gaviota UNDERWOOD Response: Latest Abreu Fall Score: 75 Fall Risk: High Risk Safety Measures: Call light Within Reach, Bed Alarm Zone 2, Side Rails Side Rails x3, Bed position Low and Locked. Fall Precautions: Yellow Socks Report given to Anton RN.
[2020-01-07] MEDS: Dyna-Hex 2% Top Sol 2oz TOPIC SCH (19:41)
--- NOTE | 2020-01-07 19:55 | NUR ---
NURSE NOTES: PATIENT ASLEEP STATUS, TRIED TO OPEN EYES TO NAME, ON ETT TO VENT, AC 18/TV 600/FIO2 40%/PEEP 5, O2 SATURATION 100% NOTED, NGT TO RIGHT NARES, ON VITAL AF 1.2 AT 45ML/HR, RESIDUE 180ML NOTED, HELD FEEDING AT THIS TIME, ABDOMEN DISTENDED, NON TENDER, NO N/V, KEPT HOB 30 DEGREES AND ASPIRATION PRECAUTION, F/C INTACT AND PATENT, YELLOW URINE OUTED, PICC LINE TO LEFT UPPER ARM, INTACT AND PATENT, TKO STATUS, 2 POINT SOFT RESTRAINTS STATUS, ON P200 BED, MADE LOWER BED POSITION, ON BED ALARM AND LOCKED, PLACED CALL LIGHT WITHIN REACH, WILL CONTINUE TO MONITOR.
[2020-01-07] MEDS: Miralax 17gm pkt NG SCH (21:00)
[2020-01-07] MEDS: Iron Sucrose 100 MG in NS 55 ML IV SCH (21:01)
--- NOTE | 2020-01-07 21:12 | General Progress Note ---
Subjective Allergies: Coded Allergies: ERYTHROMYCIN BASE (Verified Allergy, Severe, 12/12/19) HALOPERIDOL (Verified Allergy, Unknown, 12/12/19) VANCOMYCIN (Unverified Adverse Reaction, Intermediate, Shortness of Breath, 12/12/19) Subjective above noted patient seen in ICU d/w RN TF residuals improved with TF formula change diarrhea improved with TF formula change Objective Last 24 Hour Vital Signs Date Time Temp Pulse Resp B/P (MAP) Pulse Ox O2 Delivery O2 Flow Rate FiO2 01/07/20 21:01 123 118/71 01/07/20 19:00 138 25 135/69 (91) 97 01/07/20 18:57 123 25 40 01/07/20 18:57 155 138/99 01/07/20 18:00 155 28 138/99 (112) 97 01/07/20 17:00 114 27 121/71 (88) 100 01/07/20 17:00 108 22 121/71 (88) 100 01/07/20 16:00 98.8 104 18 104/61 (75) 100 01/07/20 16:00 101 01/07/20 16:00 Mechanical Ventilator 01/07/20 16:00 40 01/07/20 15:00 115 25 114/65 (81) 99 01/07/20 14:30 98 19 40 01/07/20 14:14 94 111/69 01/07/20 14:00 99 16 111/65 (80) 99 01/07/20 13:00 94 18 111/69 (83) 97 01/07/20 12:00 40 01/07/20 12:00 98.6 96 19 96/59 (71) 99 01/07/20 12:00 Mechanical Ventilator 01/07/20 11:32 101 01/07/20 11:00 97 15 117/67 (84) 97 01/07/20 10:45 98 21 40 01/07/20 10:45 98 01/07/20 10:00 81 23 90/58 (69) 87 01/07/20 09:00 78 18 89/57 (68) 100 01/07/20 08:03 75 01/07/20 08:00 40 01/07/20 08:00 Mechanical Ventilator 01/07/20 08:00 98.2 82 18 85/59 (68) 100 9/28/20 07:28 80 18 40 01/07/20 07:00 75 18 96/57 (70) 100 01/07/20 06:00 88 36 97/57 (70) 100 01/07/20 05:21 98 109/56 01/07/20 05:00 89 18 102/87 (92) 100 01/07/20 04:00 Mechanical Ventilator 01/07/20 04:00 40 01/07/20 04:00 105 01/07/20 04:00 99.8 93 18 95/56 (69) 99 01/07/20 03:28 98 21 40 01/07/20 03:21 105 01/07/20 03:06 99.3 01/07/20 03:00 111 21 125/61 (82) 98 01/07/20 02:00 84 18 107/56 (73) 100 01/07/20 01:00 83 19 106/52 (70) 100 01/07/20 00:00 80 18 86/44 (58) 100 01/07/20 00:00 40 01/07/20 00:00 Mechanical Ventilator 01/06/20 23:31 94 01/06/20 23:15 82 19 40 01/06/20 23:00 84 16 111/61 (78) 98 01/06/20 22:00 79 18 101/62 (75) 100 01/06/20 21:08 76 18 88/72 (77) 100 Intake and Output 01/06/20 01/07/20 18:59 06:59 Intake Total 915 ml 1400 ml Output Total 1250 ml 1510 ml Balance -335 ml -110 ml Free Water 90 ml IV Total 815 ml 910 ml Tube Feeding 100 ml 400 ml Output Urine Total 1250 ml 1510 ml # Bowel Movements 3 Laboratory Tests 01/07/20 04:30: White Blood Count 2.9L, Red Blood Count 2.51L, Hemoglobin 7.1L, Hematocrit 22.2L , Mean Corpuscular Volume 89, Mean Corpuscular Hemoglobin 28.2, Mean Corpuscular Hemoglobin Concent 31.8L, Red Cell Distribution Width 17.7H, Platelet Count 91L, Mean Platelet Volume 7.0, Neutrophils (%) (Auto) , Lymphocytes (%) (Auto) , Monocytes (%) (Auto) , Eosinophils (%) (Auto) , Basophils (%) (Auto) , Differential Total Cells Counted 100, Neutrophils % (Manual) 69, Lymphocytes % (Manual) 25, Monocytes % (Manual) 4, Eosinophils % (Manual) 2, Basophils % (Manual) 0, Band Neutrophils 0, Platelet Estimate DecreasedL, Platelet Morphology Normal, Polychromasia 1+, Hypochromasia 1+, Anisocytosis 1+, Sodium Level 139, Potassium Level 3.8, Chloride Level 103, Carbon Dioxide Level 30, Anion Gap 6, Blood Urea Nitrogen 58H, Creatinine 1.7H, Estimat Glomerular Filtration Rate 30.0, Glucose Level 112H, Calcium Level 8.1L 01/07/20 07:28: Arterial Blood pH 7.511H, Arterial Blood Partial Pressure CO2 40.9, Arterial Blood Partial Pressure O2 116.6H, Arterial Blood HCO3 32.0H, Arterial Blood Oxygen Saturation 97.7, Arterial Blood Base Excess 8.2H, Eugene Test Positive 01/07/20 08:30: Ferritin 871H Height (Feet): 5 Height (Inches): 6.00 Weight (Pounds): 298 Objective Patient seen in ICU Exam limited due to COVID isolation Obese WW Resting comfortably Intubated - on ventilator (+) NGT - tolerating better abd obese ext (R) leg ecchymosis Assessment/Plan Status: stable Assessment/Plan: Assessment/Plan Problem List: (1) CKD (chronic kidney disease) stage 3, GFR 30-59 ml/min ICD Codes: N18.3 - Chronic kidney disease, stage 3 (moderate) SNOMED: 162681174 (2) COPD / Respiratory failure ICD Codes: J44.9 - Chronic obstructive pulmonary disease, unspecified SNOMED: 58937169 (3) Smoker ICD Codes: F17.200 - Nicotine dependence, unspecified, uncomplicated SNOMED: 77678143 (4) GERD (gastroesophageal reflux disease) ICD Codes: K21.9 - Gastro-esophageal reflux disease without esophagitis SNOMED: 797357452 (5) Atrial fibrillation with RVR ICD Codes: I48.91 - Unspecified atrial fibrillation SNOMED: 055603272765584 (6) TF intolerance - improved Assessment/Plan: Dysphagia --> s/p ngt placement ppi bid fu H&H monitor labs bowel regimen needs clearance for GI procedures NGTF on Lovenox IV Antoine Rosas MD Jan 07, 2020 21:12
--- NOTE | 2020-01-07 21:30 | Surgery Progress Note ---
Surgery Progress Note Subjective Additional Comments discussed with pulm and pcp consider trial extubation if weaning otherwise will plan trach Objective Last 24 Hour Vital Signs Date Time Temp Pulse Resp B/P (MAP) Pulse Ox O2 Delivery O2 Flow Rate FiO2 01/07/20 21:25 153 165/145 01/07/20 21:01 123 118/71 01/07/20 19:00 138 25 135/69 (91) 97 01/07/20 18:57 123 25 40 01/07/20 18:57 155 138/99 01/07/20 18:00 155 28 138/99 (112) 97 01/07/20 17:00 114 27 121/71 (88) 100 01/07/20 17:00 108 22 121/71 (88) 100 01/07/20 16:00 98.8 104 18 104/61 (75) 100 01/07/20 16:00 101 01/07/20 16:00 Mechanical Ventilator 01/07/20 16:00 40 01/07/20 15:00 115 25 114/65 (81) 99 01/07/20 14:30 98 19 40 01/07/20 14:14 94 111/69 01/07/20 14:00 99 16 111/65 (80) 99 01/07/20 13:00 94 18 111/69 (83) 97 01/07/20 12:00 40 01/07/20 12:00 98.6 96 19 96/59 (71) 99 01/07/20 12:00 Mechanical Ventilator 01/07/20 11:32 101 01/07/20 11:00 97 15 117/67 (84) 97 01/07/20 10:45 98 21 40 01/07/20 10:45 98 01/07/20 10:00 81 23 90/58 (69) 87 01/07/20 09:00 78 18 89/57 (68) 100 01/07/20 08:03 75 01/07/20 08:00 40 01/07/20 08:00 Mechanical Ventilator 01/07/20 08:00 98.2 82 18 85/59 (68) 100 01/07/20 07:28 80 18 40 01/07/20 07:00 75 18 96/57 (70) 100 01/07/20 06:00 88 36 97/57 (70) 100 9/28/20 05:21 98 109/56 01/07/20 05:00 89 18 102/87 (92) 100 01/07/20 04:00 Mechanical Ventilator 01/07/20 04:00 40 01/07/20 04:00 105 01/07/20 04:00 99.8 93 18 95/56 (69) 99 01/07/20 03:28 98 21 40 01/07/20 03:21 105 01/07/20 03:06 99.3 01/07/20 03:00 111 21 125/61 (82) 98 01/07/20 02:00 84 18 107/56 (73) 100 01/07/20 01:00 83 19 106/52 (70) 100 01/07/20 00:00 80 18 86/44 (58) 100 01/07/20 00:00 40 01/07/20 00:00 Mechanical Ventilator 01/06/20 23:31 94 01/06/20 23:15 82 19 40 01/06/20 23:00 84 16 111/61 (78) 98 01/06/20 22:00 79 18 101/62 (75) 100 I&O Intake and Output 01/06/20 01/07/20 19:00 07:00 Intake Total 925 ml 1390 ml Output Total 1225 ml 1565 ml Balance -300 ml -175 ml Free Water 90 ml IV Total 815 ml 910 ml Tube Feeding 110 ml 390 ml Output Urine Total 1225 ml 1565 ml # Bowel Movements 3 Dressing: other Wound: other Respiratory: decreased breath sounds Abdomen: non-tender, present bowel sounds Extremities: edema, cyanosis Laboratory Tests Test 01/07/20 04:30 01/07/20 07:28 01/07/20 08:30 White Blood Count 2.9 K/UL (4.8-10.8) L Red Blood Count 2.51 M/UL (4.20-5.40) L Hemoglobin 7.1 G/DL (12.0-16.0) L Hematocrit 22.2 % (37.0-47.0) L Mean Corpuscular Volume 89 FL (80-99) Mean Corpuscular Hemoglobin 28.2 PG (27.0-31.0) Mean Corpuscular Hemoglobin Concent 31.8 G/DL (32.0-36.0) L Red Cell Distribution Width 17.7 % (11.6-14.8) H Platelet Count 91 K/UL (150-450) L Mean Platelet Volume 7.0 FL (6.5-10.1) Neutrophils (%) (Auto) % (45.0-75.0) Lymphocytes (%) (Auto) % (20.0-45.0) Monocytes (%) (Auto) % (1.0-10.0) Eosinophils (%) (Auto) % (0.0-3.0) Basophils (%) (Auto) % (0.0-2.0) Differential Total Cells Counted 100 Neutrophils % (Manual) 69 % (45-75) Lymphocytes % (Manual) 25 % (20-45) Monocytes % (Manual) 4 % (1-10) Eosinophils % (Manual) 2 % (0-3) Basophils % (Manual) 0 % (0-2) Band Neutrophils 0 % (0-8) Platelet Estimate Decreased L Platelet Morphology Normal Polychromasia 1+ Hypochromasia 1+ Anisocytosis 1+ Sodium Level 139 MMOL/L (136-145) Potassium Level 3.8 MMOL/L (3.5-5.1) Chloride Level 103 MMOL/L (98-107) Carbon Dioxide Level 30 MMOL/L (21-32) Anion Gap 6 mmol/L (5-15) Blood Urea Nitrogen 58 mg/dL (7-18) H Creatinine 1.7 MG/DL (0.55-1.30) H Estimat Glomerular Filtration Rate 30.0 mL/min (>60) Glucose Level 112 MG/DL (74-106) H Calcium Level 8.1 MG/DL (8.5-10.1) L Arterial Blood pH 7.511 (7.350-7.450) Arterial Blood Partial Pressure CO2 40.9 mmHg (35.0-45.0) Arterial Blood Partial Pressure O2 116.6 mmHg (75.0-100.0) H Arterial Blood HCO3 32.0 mmol/L (22.0-26.0) H Arterial Blood Oxygen Saturation 97.7 % (95-100) Arterial Blood Base Excess 8.2 (-2-2) H Eugene Test Positive Ferritin 871 NG/ML (8-388) H Plan Problems: (1) Urinary tract infection (2) CHF exacerbation (3) History of schizophrenia (4) Atrial fibrillation with RVR (5) Schizophrenia (6) GERD (gastroesophageal reflux disease) (7) Smoker (8) Atrial fibrillation with rapid ventricular response (9) Lymphadema (10) COPD (chronic obstructive pulmonary disease) (11) CKD (chronic kidney disease) stage 3, GFR 30-59 ml/min (12) NATALIE (acute kidney injury) (13) Dehydration (14) Dysphagia (15) UTI (urinary tract infection) (16) UGI bleed (17) ESBL (extended spectrum beta-lactamase) producing bacteria infection (18) Constipation (19) Lactic acidosis (20) Tinea cruris (21) Onychomycosis (22) Emesis (23) Essential hypertension (24) Anemia (25) Cough (26) Depression (27) Depression (28) Edema (29) Rash (30) Opiate dependence (31) Opiate dependence (32) Opiate dependence (33) Opiate dependence (34) Pyelonephritis (35) Sepsis (36) UTI (urinary tract infection) (37) Nausea and vomiting (38) Abdominal pain Assessment & Plan: [age]-year-old female obese white abdominal pain deep tissue injury identified limited mobility on HD. KUB noted tube in place continue meds feeds Does not seem obstructed We will monitor lines noted. plan change resume tube feeds labs okay FINDINGS: Lower thorax: Obscuration of the left costophrenic angle suggestive of pleural effusion. Intraperitoneal space: No free air. Gastrointestinal tract: Unremarkable. No dilation. Bones/joints: Unremarkable. Tubes, lines and devices: The nasogastric tube has the tip at the mid inferior aspect of the gastric body. Other findings: Nonspecific gas pattern. Single frontal view of the abdomen demonstrates tip of the enteric tube and distal side-port projecting over the stomach. Gas is identified within the nondistended large bowel. There is a paucity of small bowel gas seen. Partially visualized left pleural effusion. No other significant interval change. (39) Chest pain (40) Chest pain (41) Nausea (42) Obesity (43) Chronic ulcer of leg (44) Chronic ulcer of leg (45) Chronic ulcer of leg (46) ACS (acute coronary syndrome) (47) Acute chest pain (48) Encounter for dressing change or suture removal (49) Left leg cellulitis (50) Acute encephalopathy (51) Encounter for wound re-check (52) Intractable nausea and vomiting (53) Infection due to ESBL-producing Escherichia coli (54) Chronic venous stasis (55) Change of dressing (56) Change of dressing (57) Change of dressing (58) Change of dressing (59) Change of dressing (60) Change of dressing (61) Change of dressing (62) Change of dressing (63) ESBL urine (64) Lymphadema (65) Lymphedema (66) Lymphedema (67) Lymphedema (68) Lymphedema (69) Lymphedema (70) Lymphedema (71) Lymphedema (72) Lymphedema (73) Open wound of foot (74) Open wound of foot (75) cellulitis (76) chronic lymphedema (77) chronic lymphedema (78) chronic lymphedema (79) hypertension uncontrolled (80) hypertension uncontrolled (81) Intertrigo (82) Sciatica (83) Cellulitis (84) Schizophrenia (85) Chronic bronchitis (86) HTN (hypertension) (87) Venous stasis ulcers (88) Medication refill (89) Chest pain, atypical (90) BMI 45.0-49.9, adult (91) Lymphedema of both lower extremities (92) hypertension uncontrolled (93) hypertension uncontrolled (94) hypertension uncontrolled (95) tenia corpus (96) Deep tissue injury Assessment & Plan: Morbidly obese pt whom presented on admission with Pressure injuries, Edemae bilat lower extremities eschar to dorsal aspects of metatarsals. Pt is very demanding of staff and can be resistive to repositioning. DTPI noted to L Sacrum(L)5.5cm x (W)2.5cm. Base of Pressure Injury is Maroon and indurated with surrounding non-blanchable erythema DTPI R Sacrum(L)5.5cm x (W)2.3cm. Base of Pressure Injury is maroon with pu rpuric center that is fluctuant. Pt complained of tenderness when minimally palpated. Bilat lower extremities are edematous . Dry eschar noted to nail matrix and tip of L 1st metatarsal, Dorsal L 2nd metatarsal, R 2nd and R 4th metatarsals. Both heels are boggy with non-Blanchable erythema. blisters forming on Right lower extremity anterior tibia. not infected cellulitis / edema on b/l le stable cont abx Tx.Plan: Apply Moisture Barrier Paste to Sacrum R and L gluteal cheeks. Cover with Optifoam drsgs. Change every 3 days and prn. Apply Betadine to dry eschar metatarsals both feet Daily. Apply Cavilon Skin Barrier to both heels. Cover each heel with Optifoam drsgs. Change every 7days and prn. Reposition at least every 2hours or as tolerated. Off-load heels with pillow. right leg hematoma stable critically ill and edema on right leg has compromised dermis over the hematoma. will likely need debridement once improved (97) COVID-19 Assessment & Plan: ++ on vent weaning abx as per ID (98) Respiratory failure (99) Pneumonia Juan Manuel Buckner Jan 07, 2020 21:30
--- NOTE | 2020-01-07 21:50 | NUR ---
NURSE NOTES: PATIENT ANXIOUS STATUS, GIVEN VERSED 2MG BY IVP SLOWLY PRN ORDER AT 2125PM. PATIENT CALM STATUS AT THIS TIME, WILL CONTINUE TO MONITOR.
--- NOTE | 2020-01-07 22:47 | Psych Consult Progress Note ---
Psychiatry Progress Note Psychiatry Progress Note Subjective cont to be agitated and on bilat restraints. the pt was lethargic during my eval Medications Current Medications Medications (Trade) Dose Ordered Sig/Shiraz Route PRN Reason Start Time Stop Time Status Last Admin Dose Admin Acetaminophen (Tylenol) 650 mg Q4H PRN NG Mild Pain (Pain Scale 1-3) 12/22/19 16:00 01/11/20 22:14 01/06/20 12:42 Acetaminophen (Tylenol) 650 mg Q4H PRN NG Temp >100.5 12/22/19 16:00 01/11/20 22:14 01/07/20 02:36 Acetazolamide (Diamox) 500 mg TWICE A DAY NG 01/02/20 18:00 02/01/20 17:59 01/07/20 18:04 Albuterol Sulfate (Proventil MDI) 2 puff Q4H PRN INH Shortness of Breath 12/24/19 10:30 03/23/20 10:29 Bacitracin (Bacitracin) 2 applic EVERY 12 HOURS TOPIC 01/06/20 21:00 03/12/20 08:59 01/07/20 20:59 Chlorhexidine Gluconate (Jessie-Hex 2%) 1 applic DAILY@1999 TOPIC 12/24/19 20:00 03/23/20 19:59 01/07/20 19:41 Chlorpromazine (Thorazine) 50 mg Q6H PRN IM agitation 12/30/19 02:30 01/29/20 02:29 01/06/20 03:38 Clotrimazole (Lotrimin) 1 applic EVERY 12 HOURS TOPIC 01/05/20 09:00 03/12/20 08:59 01/07/20 21:01 Dextrose (Dextrose 50%) 25 ml Q30M PRN IV Hypoglycemia 12/23/19 10:45 03/22/20 10:44 Dextrose (Dextrose 50%) 50 ml Q30M PRN IV Hypoglycemia 12/23/19 10:45 03/22/20 10:44 Diltiazem HCl (Cardizem Tab) 60 mg Q8HR NG 01/06/20 16:15 02/05/20 16:14 01/07/20 21:25 Docusate Sodium (Colace) 100 mg BID NG 12/25/19 09:00 01/24/20 08:59 01/07/20 18:04 Enoxaparin Sodium (Lovenox) 60 mg DAILY SUBQ 12/23/19 09:00 03/22/20 08:59 12/29/19 08:50 Furosemide (Lasix) 100 mg Q6HR IV 01/05/20 12:00 01/30/20 11:59 01/07/20 18:04 Insulin Aspart (NovoLOG) EVERY 6 HOURS SUBQ 01/05/20 06:00 03/22/20 11:29 01/07/20 18:04 Iron Sucrose 100 mg/Sodium Chloride 60 ml @ 240 mls/hr BEDTIME IV 01/05/20 21:00 01/09/20 21:14 01/07/20 21:01 Linezolid 300 ml @ 300 mls/hr Q12HR IVPB 01/06/20 21:00 01/13/20 20:59 01/07/20 20:59 Magnesium Hydroxide (Mom) 30 ml HSPRN PRN NG Constipation 12/22/19 15:15 01/21/20 15:14 01/02/20 22:20 Metoclopramide HCl (Reglan) 5 mg Q6H IVP 01/05/20 09:15 02/04/20 09:14 01/07/20 21:00 Metoprolol Tartrate (Lopressor) 50 mg Q12HR NG 12/22/19 21:00 03/18/20 20:59 01/07/20 21:01 Metronidazole (Flagyl) 500 mg EVERY 8 HOURS ORAL 01/06/20 22:00 01/13/20 21:59 01/07/20 21:26 Micafungin Sodium 100 mg/Sodium Chloride 110 ml @ 110 mls/hr Q24H IVPB 01/05/20 09:00 01/14/20 08:59 01/07/20 08:13 Midazolam HCl (Versed 2mg/2ml vial) 2 mg Q1H PRN IVP For Anxiety 01/02/20 07:45 01/09/20 07:44 01/07/20 21:25 Nitroglycerin (Ntg) 0.4 mg Q5M PRN SL Prn Chest Pain 12/22/19 15:00 01/11/20 22:14 Ondansetron HCl (Zofran) 4 mg Q6H PRN IVP Nausea & Vomiting 12/22/19 15:15 01/11/20 15:14 Pantoprazole (Protonix) 40 mg EVERY 12 HOURS IVP 01/01/20 21:00 01/31/20 20:59 01/07/20 20:59 Polyethylene Glycol (Miralax) 17 gm BEDTIME NG 12/22/19 21:00 01/18/20 20:59 01/07/20 21:00 Polymyxin B Sulfate 700371 units/Dextrose 550 ml @ 550 mls/hr EVERY 12 HOURS IV 01/06/20 11:00 01/13/20 10:59 01/07/20 20:59 Potassium Chloride (K-Dur) 40 meq EVERY 12 HOURS NG 01/05/20 11:45 04/04/20 11:14 01/07/20 21:00 Quetiapine Fumarate (SEROqueL) 100 mg EVERY 8 HOURS ORAL 01/04/20 22:00 02/16/20 21:59 01/07/20 21:26 Neurological/Psychiatric: Reports: anxiety, depressed, emotional problems Allergies: Coded Allergies: ERYTHROMYCIN BASE (Verified Allergy, Severe, 12/12/19) HALOPERIDOL (Verified Allergy, Unknown, 12/12/19) VANCOMYCIN (Unverified Adverse Reaction, Intermediate, Shortness of Breath, 12/12/19) Objective Data Height (Feet): 5 Height (Inches): 6.00 Weight (Pounds): 298 General Appearance: lethargic, confused, morbidly obese, other - sedated on vent, febrile Additional Comments: confused. Mood is anxious. Affect is flat. Assessment/Plan Hollister I: thorazin IM seroquel 50 q 8 hr midazolam bilat soft restraints Status: stable Status Narrative thorazin IM seroquel 50 q 8 hr midazolam bilat soft restraints Assessment/Plan: thorazin IM seroquel 50 q 8 hr midazolam bilat soft restraints Harris Ballesteros MD Jan 07, 2020 22:47
--- NOTE | 2020-01-07 23:45 | NUR ---
NURSE NOTES: PATIENT ANXIOUS STATUS, GIVEN VERSED 2MG BY IVP SLOWLY PRN ORDER AT 2336PM,DECREASED ANXIOUS STATUS AT THIS TIME, WILL CONTINUE TO MONITOR.
--- NOTE | 2020-01-07 23:57 | NUR ---
NURSE NOTES: PATIENT AGITATED, DID NOT FOLLOW COMMANDS, GIVEN THORAZINE 50MG BY IM PRN ORDER, WILL CONTINUE TO MONITOR.
[2020-01-08] VITALS (38 sets, daily range): BP systolic 84–191; BP diastolic 47–137
--- NOTE | 2020-01-08 00:25 | NUR ---
NURSE NOTES: PATIENT ASLEEP AND CALM STATUS, WILL CONTINUE PLAN OF CARE.
[2020-01-08] MEDS: Midazolam 2mg/2ml Inj IVP PRN ×6 (01:19→12:29)
--- NOTE | 2020-01-08 01:34 | NUR ---
NURSE NOTES: PATIENT ANXIOUS STATUS, GIVEN VERSED 2MG BY IVP SLOWLY PRN ORDER AT 0119AM, DECREASED ANXIOUS STATUS AT THIS TIME, WILL CONTINUE TO MONITOR.
--- NOTE | 2020-01-08 02:06 | Cardiology Progress Note ---
Subjective DATE OF SERVICE: Jan 07, 2020 Doing poorly - remains in ICU in critical condition with guarded prognosis. Remains on vent support - failed weaning trials; will likely need trach. BP range remaining low normal range. Remains COVID19 positive. Monitor: AFIb Persisting respiratory acidosis req'd intubation and mech ventilation - remains far from weaning. Had coffee ground material in NGTube and hematoma on right leg; anti-coagulation discont'd Venous Duplex: negative for DVT Renal fxn and free water deficit correcting CXR (01/07/20) decreased bilateral infiltrates and eff'n - unchanged. Objective Last 24 Hour Vital Signs Date Time Temp Pulse Resp B/P (MAP) Pulse Ox O2 Delivery O2 Flow Rate FiO2 01/08/20 01:00 88 23 114/71 (85) 95 01/08/20 00:00 100.4 87 22 115/63 (80) 100 01/08/20 00:00 40 01/08/20 00:00 Mechanical Ventilator 01/08/20 00:00 87 01/07/20 23:35 75 18 40 01/07/20 23:00 84 21 101/88 (92) 100 01/07/20 22:00 106 24 111/63 (79) 99 01/07/20 21:50 117 27 117/65 (82) 99 01/07/20 21:27 160 29 152/137 (142) 84 01/07/20 21:25 153 165/145 01/07/20 21:01 123 118/71 01/07/20 21:00 129 23 165/146 (152) 93 01/07/20 20:00 Mechanical Ventilator 01/07/20 20:00 40 01/07/20 20:00 98.7 101 24 118/71 (87) 100 01/07/20 19:22 110 01/07/20 19:00 138 25 135/69 (91) 97 01/07/20 18:57 123 25 40 01/07/20 18:57 155 138/99 01/07/20 18:00 155 28 138/99 (112) 97 01/07/20 17:00 114 27 121/71 (88) 100 01/07/20 17:00 108 22 121/71 (88) 100 01/07/20 16:00 98.8 104 18 104/61 (75) 100 9/28/20 16:00 101 01/07/20 16:00 Mechanical Ventilator 01/07/20 16:00 40 01/07/20 15:00 115 25 114/65 (81) 99 01/07/20 14:30 98 19 40 01/07/20 14:14 94 111/69 01/07/20 14:00 99 16 111/65 (80) 99 01/07/20 13:00 94 18 111/69 (83) 97 01/07/20 12:00 40 01/07/20 12:00 98.6 96 19 96/59 (71) 99 01/07/20 12:00 Mechanical Ventilator 01/07/20 11:32 101 01/07/20 11:00 97 15 117/67 (84) 97 01/07/20 10:45 98 21 40 01/07/20 10:45 98 01/07/20 10:00 81 23 90/58 (69) 87 01/07/20 09:00 78 18 89/57 (68) 100 01/07/20 08:03 75 01/07/20 08:00 40 01/07/20 08:00 Mechanical Ventilator 01/07/20 08:00 98.2 82 18 85/59 (68) 100 01/07/20 07:28 80 18 40 01/07/20 07:00 75 18 96/57 (70) 100 01/07/20 06:00 88 36 97/57 (70) 100 01/07/20 05:21 98 109/56 01/07/20 05:00 89 18 102/87 (92) 100 01/07/20 04:00 Mechanical Ventilator 01/07/20 04:00 40 01/07/20 04:00 105 01/07/20 04:00 99.8 93 18 95/56 (69) 99 01/07/20 03:28 98 21 40 01/07/20 03:21 105 01/07/20 03:06 99.3 01/07/20 03:00 111 21 125/61 (82) 98 ROS: unchanged from 12/12/19 HEENT: Orally intubated, Mechanically Ventilated, Thin secretions ET Tube, o ther - NGtube RHYTHM: NSR, ST LUNGS: diminished breath sounds, right-sided rhonchi CARDIAC: normal S1 and S2, irregularly irregular ABDOMEN: other - obese EXTREMITIES: moderate edema - mostly non pitting, other - hematoma right leg Laboratory Tests Test 01/07/20 04:30 01/07/20 07:28 01/07/20 08:30 White Blood Count 2.9 K/UL (4.8-10.8) L Red Blood Count 2.51 M/UL (4.20-5.40) L Hemoglobin 7.1 G/DL (12.0-16.0) L Hematocrit 22.2 % (37.0-47.0) L Mean Corpuscular Volume 89 FL (80-99) Mean Corpuscular Hemoglobin 28.2 PG (27.0-31.0) Mean Corpuscular Hemoglobin Concent 31.8 G/DL (32.0-36.0) L Red Cell Distribution Width 17.7 % (11.6-14.8) H Platelet Count 91 K/UL (150-450) L Mean Platelet Volume 7.0 FL (6.5-10.1) Neutrophils (%) (Auto) % (45.0-75.0) Lymphocytes (%) (Auto) % (20.0-45.0) Monocytes (%) (Auto) % (1.0-10.0) Eosinophils (%) (Auto) % (0.0-3.0) Basophils (%) (Auto) % (0.0-2.0) Differential Total Cells Counted 100 Neutrophils % (Manual) 69 % (45-75) Lymphocytes % (Manual) 25 % (20-45) Monocytes % (Manual) 4 % (1-10) Eosinophils % (Manual) 2 % (0-3) Basophils % (Manual) 0 % (0-2) Band Neutrophils 0 % (0-8) Platelet Estimate Decreased L Platelet Morphology Normal Polychromasia 1+ Hypochromasia 1+ Anisocytosis 1+ Sodium Level 139 MMOL/L (136-145) Potassium Level 3.8 MMOL/L (3.5-5.1) Chloride Level 103 MMOL/L (98-107) Carbon Dioxide Level 30 MMOL/L (21-32) Anion Gap 6 mmol/L (5-15) Blood Urea Nitrogen 58 mg/dL (7-18) H Creatinine 1.7 MG/DL (0.55-1.30) H Estimat Glomerular Filtration Rate 30.0 mL/min (>60) Glucose Level 112 MG/DL (74-106) H Calcium Level 8.1 MG/DL (8.5-10.1) L Arterial Blood pH 7.511 (7.350-7.450) Arterial Blood Partial Pressure CO2 40.9 mmHg (35.0-45.0) Arterial Blood Partial Pressure O2 116.6 mmHg (75.0-100.0) H Arterial Blood HCO3 32.0 mmol/L (22.0-26.0) H Arterial Blood Oxygen Saturation 97.7 % (95-100) Arterial Blood Base Excess 8.2 (-2-2) H Eugene Test Positive Ferritin 871 NG/ML (8-388) H Microbiology Date/Time Source Procedure Growth Status 01/06/20 18:05 Sputum Expectorated Gram Stain - Final Resulted 01/06/20 18:05 Sputum Expectorated Sputum Culture Pending Resulted Assessment/Plan Assessment/Plan CRITICAL AND GUARDED Acute respiratory failure Acute on chronic respiratory acidosis AFiB with labile heart rates CHF, ac/chr diastolic BLE edema Sepsis with shock obesity COPD with bronchospasm Acute renal failure - worsening Pleural effusion GI bleeding Anemia - multifactorial Covid 19 PNA Hypokalemia Dehydration/hypernatremia corrected Hypertension/HHD with labile BP - now stable range. Vent support Monitor acid/base parameters. Decrease anti-HTN regimen due to low BP - if heart rates go up, may need digoxin. Transfuse PRBC's. Antimicrobials Titrate rate-control meds - hold digitalis for elevated levels. Maintain diltiazem and metoprolol. DC apixaban - hold anticoagulation due to GI bleeding; resume with GI clearance. Continued secured entrance monitor Diuresis based on clinical parameters; trend BNP May need trach Potassium and free water suppl as needed Agree with consideration for DNR Jerome Meek MD Jan 08, 2020 02:06
[2020-01-08] MEDS: Metoclopramide 10mg/2ml Inj IVP SCH ×4 (02:53→20:55)
--- NOTE | 2020-01-08 03:20 | NUR ---
NURSE NOTES: PATIENT ANXIOUS STATUS, GIVEN VERSED 2MG BY IVP SLOWLY PRN ORDER AT 0253AM, DECREASED ANXIOUS STATUS AT THIS TIME, WILL CONTINUE TO MONITOR.
--- NOTE | 2020-01-08 03:50 | NUR ---
NURSE NOTES: MORNING CARE AND ORAL CARE WAS DONE, NO BM STATUS.
--- NOTE | 2020-01-08 05:20 | NUR ---
NURSE NOTES: PATIENT ANXIOUS, COMBATIVE TO STAFF STATUS, GIVEN VERSED 2MG BY IVP SLOWLY PRN ORDER AT 0451AM, DECREASED ANXIOUS STATUS AT THIS TIME, WILL CONTINUE TO MONITOR.
[2020-01-08] MEDS: dilTIAZem HCl 60mg tab NG SCH ×3 (05:32→22:58)
[2020-01-08] MEDS: metroNIDAZOLE 500mg tab ORAL SCH ×2 (05:32→14:31)
[2020-01-08] MEDS: NovoLOG Insulin Flexpen SUBQ SCH ×5 (05:57→23:30)
--- NOTE | 2020-01-08 06:27 | NUR ---
NURSE NOTES: PATIENT CALM, ASLEEP STATUS AT THIS TIME.
--- NOTE | 2020-01-08 07:12 | NUR ---
NURSE HAND-OFF REPORT: Latest Vital Signs: Temperature 99.5 , Pulse 100 , B/P 108 /66 , Respiratory Rate 18 , O2 SAT 100 , Mechanical Ventilator, O2 Flow Rate . Vital Sign Comment: temp 100.4f at 0000am. EKG Rhythm: sr w/pac's Rhythm change?: N MD Notified?: N -MD Gaviota UNDERWOOD Response: Latest Abreu Fall Score: 75 Fall Risk: High Risk Safety Measures: Call light Within Reach, Bed Alarm Zone 1, Side Rails Side Rails x3, Bed position Low and Locked. Fall Precautions: Yellow Socks Yellow Gown Door Sign Patient Fall Education Report given to Christine SALCEDO RN.
--- NOTE | 2020-01-08 07:30 | NUR ---
NURSE NOTES: Patient received from Anton RN. Patient stable at this time with no s/sx of pain or distress. AOx0 momentarily agitated but maintaining eyes closed at RR even and unlabored on ETT 7.5 24 lip line. Ventilator settings as ordered AC 18 600mL 40% P5. Cardiac sounds benign. Breath sounds diminished, rhoncus with RT > LT. Bowels sounds hypoactive. Feeding held at this time. Zero residual. NGT in place. BL radial and Pedal pulses weak. Generalized edema present with hands +2 and ankles +3. Lockett in place draining well to gravity. No BM at this time. LT UA PICC line dressing dry and intact. Patent with fluids TKO to both ports. Restraints on with good ROM, sensation and circulation. Dependent edema present and previously noted unrelated to restraints. Side rails upx2, bed low and locked.
[2020-01-08] MEDS: Pantoprazole Inj IVP SCH ×2 (08:46→20:54)
[2020-01-08] MEDS: Docusate 100mg/10ml Liq NG SCH ×2 (08:47→18:20)
[2020-01-08] MEDS: Metoprolol Tartrate 50mg tab NG SCH ×2 (08:47→20:55)
[2020-01-08] MEDS: Enoxaparin 60mg Inj SUBQ SCH (08:48)
[2020-01-08] MEDS: Polymyxin B Sulfate 500,000 UNITS in D5W 500ml 550 ML IV SCH ×2 (08:49→20:54)
[2020-01-08] MEDS: Micafungin 100 MG in NS 110 ML IVPB SCH (08:49)
[2020-01-08] MEDS: Bacitracin Oint UD TOPIC SCH ×2 (09:25→20:55)
[2020-01-08] MEDS: Acetaminophen 650mg/20.3ml NG PRN (09:25)
--- NOTE | 2020-01-08 09:38 | Pulmonolgy Critical Care Note ---
AndrésLuz PRINCIPAL AUTOMATION ENGINEER 01/08/20 0938: Critical Care - Asmt/Plan Assessment/Plan: ASSESSMENT acute hypoxemic hypercapnic resp failure, requiring intubation 12/22 failure to wean COVID 19 PNA sepsis fungemia UTI with E coli ESBL UTI VRE possible aspiration PNA Moderate R pleural effusion COPD Bronchospasm Atrial fibrillation with rapid ventricular response Congestive heart failure Acute renal failure on CKD Severe anemia Probable GI bleeding Thrombocytopenia Status post ground fall Tobacco dependency Morbid obesity probably GARY Homeless R knee edema and hematoma, likely sprain /strain post fall PLAN OF CARE ICU intubated 12/22 MDI Albuterol in line with vent fup with CXR and ABG ABG this am noted will put on CPAP PS 8 until seen by my supervising physician ( as discussed ) started on weaning trials with high PS settings as ordered, goal MV 10 tolerated 6 hrs 01/02, continue as tolerated, afterwards not tolerating weaning, will need trach was placed on CPAP PS 8 , initially tolerated then developed SVT with HR up to 180, placed back to AC vent continue weaning trials for 102 more days but likely will need trach since not tolerating weaning CXR 01/03 no sign change CXR 01/05 noted, CXR 01/[address] effusion hold on thoracentesis for now off Fentanyl given low BP sedation with Versed prn s/p steroids IV ( started 12/23) continue for total of 10 days till 01/02 s/p Remdesivir (started 12/24 ), dc 12/30 initial diagnoses with COVID 19 at [facility] 11/29, was not hypoxic and not intubated, was not treated with Remdesivivr , only received empiric abx for PNA sedation with Fentanyl gtt and versed prn - DVT prophylaxis with Lovenox prior Venous Duplex BLE -NGT COVID 19 by PCR 12/22 positive isolation IL 6 52 , initial CRP 15.6, ferritin 769, fup with inflammatory markers CRP 12/29 - down to 11.8 ; ferritin down to 503 CRP 01/03 -10.7 on diuresis with Lasix , monitor volumes closely creat remains stable rate control- per cardio recs: monitor volumes pro BNP trending down ECHO with pEF no evidence of WMA GI prophylaxis with PPI s/p Venofer x 2 s/p blood transfusion 12/25 monitor HH with goal to keep Hgb >7 s/p 1 u PRBC 01/01 now on IV Venofer x5 days ( 01/04- GI procedure when stable monitor PLT counts renal US no hydro, BL nonobstructive stones s/p IV hydration, now resumed again per nephro monitor renal parameters, lytes , e/lyte management as per nephro recs creat stable UCX 12/11 + E coli ESBL, BCX 12/16 1/2 + yeast, fup with yeast ID, ? source BCX 12/17 NGTD BCX 12/22 and 12/24 NGTD UCX 12/16 VRE SCX 12/19 MRSA, ACB MDR now on micafungin , Polymyxin , Zyvox and Flagyl -as per ID recs; cooling blanket prn fevers prior X ray R knee given fall 12/15 , large hematoma, swelling-no fx or dislocation ice R knee and elevate CT head no acute IC pathology fall precautions prior declined Nicotine patch discussion on weight loss if receptive - not at this time; anxious and wants to go home pain management anxiolytic prn SW consult for placement evaluated by bioethics -> DNR/DNI status appropriate given current critical condition , grave prognosis and multiple comorbidities, would recommend DNR/DNI status as well now DNR/DNI status case discussed and evaluated by supervising physician ivy mccarty for a consult! Critical Care - Objective Last 24 Hour Vital Signs Date Time Temp Pulse Resp B/P (MAP) Pulse Ox O2 Delivery O2 Flow Rate FiO2 01/08/20 08:47 116 106/60 01/08/20 07:20 101 27 99 Mechanical Ventilator 40 01/08/20 07:20 101 27 40 01/08/20 07:00 90 18 106/67 (80) 100 01/08/20 06:00 100 18 108/66 (80) 100 01/08/20 05:32 113 108/82 01/08/20 05:00 112 21 108/82 (91) 100 01/08/20 04:00 92 01/08/20 04:00 40 01/08/20 04:00 Mechanical Ventilator 01/08/20 04:00 99.5 92 22 106/60 (75) 100 01/08/20 03:39 95 18 40 01/08/20 03:34 99 22 104/63 (77) 100 01/08/20 03:00 102 20 87/71 (76) 98 01/08/20 02:00 80 18 94/58 (70) 100 01/08/20 01:00 88 23 114/71 (85) 95 01/08/20 00:00 100.4 87 22 115/63 (80) 100 01/08/20 00:00 40 01/08/20 00:00 Mechanical Ventilator 01/08/20 00:00 87 01/07/20 23:35 75 18 40 01/07/20 23:00 84 21 101/88 (92) 100 01/07/20 22:00 106 24 111/63 (79) 99 01/07/20 21:50 117 27 117/65 (82) 99 01/07/20 21:27 160 29 152/137 (142) 84 01/07/20 21:25 153 165/145 01/07/20 21:01 123 118/71 01/07/20 21:00 129 23 165/146 (152) 93 01/07/20 20:00 Mechanical Ventilator 01/07/20 20:00 40 01/07/20 20:00 98.7 101 24 118/71 (87) 100 01/07/20 19:22 110 01/07/20 19:00 138 25 135/69 (91) 97 01/07/20 18:57 123 25 40 01/07/20 18:57 155 138/99 01/07/20 18:00 155 28 138/99 (112) 97 01/07/20 17:00 114 27 121/71 (88) 100 01/07/20 17:00 108 22 121/71 (88) 100 01/07/20 16:00 98.8 104 18 104/61 (75) 100 01/07/20 16:00 101 01/07/20 16:00 Mechanical Ventilator 01/07/20 16:00 40 01/07/20 15:00 115 25 114/65 (81) 99 01/07/20 14:30 98 19 40 01/07/20 14:14 94 111/69 01/07/20 14:00 99 16 111/65 (80) 99 01/07/20 13:00 94 18 111/69 (83) 97 01/07/20 12:00 40 01/07/20 12:00 98.6 96 19 96/59 (71) 99 9/28/20 12:00 Mechanical Ventilator 01/07/20 11:32 101 01/07/20 11:00 97 15 117/67 (84) 97 01/07/20 10:45 98 21 40 01/07/20 10:45 98 01/07/20 10:00 81 23 90/58 (69) 87 Objective: CONDITION: critical General Appearance: morbidly obese , sedated, anasarca ; on vent AC 600-18-40% PEEP 5 Lines, tubes and drains: LUE PICC new , intact HEENT: normocephalic, atraumatic, anicteric, NGT in , OP with ET Neck: non-tender Respiratory/Chest: chest wall non-tender, no accessory muscle use, few isolated scattered rhonchi Cardiovascular/Chest: irregularly irregular - A fib , tachy at times , distant heart sounds, Abdomen: normal bowel sounds, non tender , obese, soft : Lockett Extremities: no calf tenderness, moderate edema - +3 BLE, R knee with large hematoma, edema, Skin Exam: warm/dry, multiple tattoos Neurologic: sedated Musculoskeletal: normal muscle bulk Micro: Microbiology Date/Time Source Procedure Growth Status 01/06/20 18:05 Sputum Expectorated Gram Stain - Final Resulted 01/06/20 18:05 Sputum Culture - Preliminary Gram Negative Bacillus 1 Resulted Accucheck: 106 Critical Care - Subjective ROS Limited/Unobtainable: Yes Interval Events: low grade fevers, leukopenic 01/06 initially tolerated weaning,m then developed SVT and was placed back to AC vent Hgb down to 7.1 on venofer CXR stable Condition: critical IV Access: PICC - LUE intact EKG Rhythm: Atrial Fibrillation FI02: 40 Vent Support Breath Rate: 18 Vent Support Mode: AC Vent Tidal Volume: 600 Sputum Amount: Scant PEEP: 5.0 PIP: 31 Tube Feeding Amount: 0 I&O: Intake and Output 01/07/20 01/08/20 19:00 07:00 Intake Total 1855 ml 1165 ml Output Total 1380 ml 1500 ml Balance 475 ml -335 ml Free Water 400 ml IV Total 960 ml 910 ml Tube Feeding 495 ml 45 ml Other 210 ml Output Urine Total 1380 ml 1500 ml CXR: CXR 01/06 -> Stable satisfactory positions of endotracheal and orogastric tubes. Mild interstitial congestion and hazy ankle opacities are again demonstrated bilaterally. There appears to be a small amount of pleural fluid bilaterally, probably unchanged. ET-Tube: 7.5 ET Position: 24 Igor Carpio MD 01/08/20 1207: Critical Care - Asmt/Plan Assessment/Plan: Patient seen and examined with PRINCIPAL AUTOMATION ENGINEER. Agree with above A&P as it reflects our joint deliberations. Luz Bowen NP Jan 08, 2020 09:38 Igor Carpio MD Jan 08, 2020 12:07
[2020-01-08] MEDS ORDERED: NS 275ml ONE (10:07)
[2020-01-08] MEDS ORDERED: Tubing IV Secondary IV ONE (10:07)
--- NOTE | 2020-01-08 10:11 | NUR ---
NURSE NOTES: Weaning attempted at 0930. Patient has been tolerating CPAP 5 pressure support of 8 with FIO2 40%.
--- NOTE | 2020-01-08 11:15 | NUR ---
RESPIRATORY NOTES PT placed on SBT - CPAP 5, PS 8 PT seemed to tolerate weaning well, with no visible signs of respiratory distress. ABG was drawn roughly an hour later - CO2 adela from 43.1 to 70.3 PT then placed back onto previous vent settings. NOEL marquis. Will continue to monitor.
--- NOTE | 2020-01-08 11:24 | NUR ---
NURSE NOTES: Critical results reported from Grover RT. Placed back on AC mode. Will report failed weaning.
--- NOTE | 2020-01-08 12:23 | General Progress Note ---
Subjective ROS Limited/Unobtainable: No Allergies: Coded Allergies: ERYTHROMYCIN BASE (Verified Allergy, Severe, 12/12/19) HALOPERIDOL (Verified Allergy, Unknown, 12/12/19) VANCOMYCIN (Unverified Adverse Reaction, Intermediate, Shortness of Breath, 12/12/19) Objective Last 24 Hour Vital Signs Date Time Temp Pulse Resp B/P (MAP) Pulse Ox O2 Delivery O2 Flow Rate FiO2 01/08/20 10:00 101.2 117 24 118/70 (86) 95 01/08/20 10:00 101.2 01/08/20 09:30 40 01/08/20 09:00 115 18 113/65 (81) 100 01/08/20 08:47 116 106/60 01/08/20 08:00 40 01/08/20 08:00 Mechanical Ventilator 01/08/20 08:00 90 01/08/20 08:00 101.5 107 24 106/90 (95) 99 01/08/20 07:20 101 27 99 Mechanical Ventilator 40 01/08/20 07:20 101 27 40 01/08/20 07:00 90 18 106/67 (80) 100 01/08/20 06:00 100 18 108/66 (80) 100 01/08/20 05:32 113 108/82 01/08/20 05:00 112 21 108/82 (91) 100 01/08/20 04:00 92 01/08/20 04:00 40 01/08/20 04:00 Mechanical Ventilator 01/08/20 04:00 99.5 92 22 106/60 (75) 100 01/08/20 03:39 95 18 40 01/08/20 03:34 99 22 104/63 (77) 100 01/08/20 03:00 102 20 87/71 (76) 98 01/08/20 02:00 80 18 94/58 (70) 100 01/08/20 01:00 88 23 114/71 (85) 95 01/08/20 00:00 100.4 87 22 115/63 (80) 100 01/08/20 00:00 40 01/08/20 00:00 Mechanical Ventilator 01/08/20 00:00 87 01/07/20 23:35 75 18 40 01/07/20 23:00 84 21 101/88 (92) 100 01/07/20 22:00 106 24 111/63 (79) 99 01/07/20 21:50 117 27 117/65 (82) 99 01/07/20 21:27 160 29 152/137 (142) 84 01/07/20 21:25 153 165/145 01/07/20 21:01 123 118/71 01/07/20 21:00 129 23 165/146 (152) 93 01/07/20 20:00 Mechanical Ventilator 01/07/20 20:00 40 01/07/20 20:00 98.7 101 24 118/71 (87) 100 01/07/20 19:22 110 01/07/20 19:00 138 25 135/69 (91) 97 01/07/20 18:57 123 25 40 01/07/20 18:57 155 138/99 01/07/20 18:00 155 28 138/99 (112) 97 01/07/20 17:00 114 27 121/71 (88) 100 01/07/20 17:00 108 22 121/71 (88) 100 01/07/20 16:00 98.8 104 18 104/61 (75) 100 01/07/20 16:00 101 01/07/20 16:00 Mechanical Ventilator 01/07/20 16:00 40 01/07/20 15:00 115 25 114/65 (81) 99 01/07/20 14:30 98 19 40 01/07/20 14:14 94 111/69 01/07/20 14:00 99 16 111/65 (80) 99 01/07/20 13:00 94 18 111/69 (83) 97 Intake and Output 01/07/20 01/08/20 19:00 07:00 Intake Total 1855 ml 1165 ml Output Total 1380 ml 1500 ml Balance 475 ml -335 ml Free Water 400 ml IV Total 960 ml 910 ml Tube Feeding 495 ml 45 ml Other 210 ml Output Urine Total 1380 ml 1500 ml Laboratory Tests 01/07/20 23:47: POC Whole Blood Glucose 140H 01/08/20 05:43: POC Whole Blood Glucose 106 01/08/20 07:46: Arterial Blood pH 7.453H, Arterial Blood Partial Pressure CO2 43.1, Arterial Blood Partial Pressure O2 101.7H, Arterial Blood HCO3 29.5H, Arterial Blood Oxygen Saturation 97.7, Arterial Blood Base Excess 5.1H, Eugene Test Positive 01/08/20 10:58: Arterial Blood pH 7.240*L, Arterial Blood Partial Pressure CO2 70.3*H, Arterial Blood Partial Pressure O2 79.4, Arterial Blood HCO3 29.5H, Arterial Blood Oxygen Saturation 91.7L, Arterial Blood Base Excess 1.4, Eugene Test Positive 01/08/20 11:33: POC Whole Blood Glucose 147H Height (Feet): 5 Height (Inches): 6.00 Weight (Pounds): 298 General Appearance: no apparent distress EENT: normal ENT inspection Neck: supple Cardiovascular: normal rate Respiratory/Chest: decreased breath sounds Abdomen: normal bowel sounds, non tender, soft Extremities: non-tender Assessment/Plan Problem List: (1) CKD (chronic kidney disease) stage 3, GFR 30-59 ml/min ICD Codes: N18.3 - Chronic kidney disease, stage 3 (moderate) SNOMED: 885365753 (2) COPD (chronic obstructive pulmonary disease) ICD Codes: J44.9 - Chronic obstructive pulmonary disease, unspecified SNOMED: 84358365 (3) Smoker ICD Codes: F17.200 - Nicotine dependence, unspecified, uncomplicated SNOMED: 54508807 (4) GERD (gastroesophageal reflux disease) ICD Codes: K21.9 - Gastro-esophageal reflux disease without esophagitis SNOMED: 050782229 (5) Atrial fibrillation with RVR ICD Codes: I48.91 - Unspecified atrial fibrillation SNOMED: 278379990738086 Status: stable Assessment/Plan: ngtf pepcid fu H&H monitor labs bowel regimen fu cardiology recs icu care ppi cbc in am pending Trach tomorrow plan PEG for Mervin Victoria MD Jan 08, 2020 12:22
--- NOTE | 2020-01-08 13:13 | Surgery Progress Note ---
Surgery Progress Note Subjective Additional Comments failed weaning will plan for trach Objective Last 24 Hour Vital Signs Date Time Temp Pulse Resp B/P (MAP) Pulse Ox O2 Delivery O2 Flow Rate FiO2 01/08/20 10:00 101.2 117 24 118/70 (86) 95 01/08/20 10:00 101.2 01/08/20 09:30 40 01/08/20 09:00 115 18 113/65 (81) 100 01/08/20 08:47 116 106/60 01/08/20 08:00 40 01/08/20 08:00 Mechanical Ventilator 01/08/20 08:00 90 01/08/20 08:00 101.5 107 24 106/90 (95) 99 01/08/20 07:20 101 27 99 Mechanical Ventilator 40 01/08/20 07:20 101 27 40 01/08/20 07:00 90 18 106/67 (80) 100 01/08/20 06:00 100 18 108/66 (80) 100 01/08/20 05:32 113 108/82 01/08/20 05:00 112 21 108/82 (91) 100 01/08/20 04:00 92 01/08/20 04:00 40 01/08/20 04:00 Mechanical Ventilator 01/08/20 04:00 99.5 92 22 106/60 (75) 100 01/08/20 03:39 95 18 40 01/08/20 03:34 99 22 104/63 (77) 100 01/08/20 03:00 102 20 87/71 (76) 98 01/08/20 02:00 80 18 94/58 (70) 100 01/08/20 01:00 88 23 114/71 (85) 95 01/08/20 00:00 100.4 87 22 115/63 (80) 100 01/08/20 00:00 40 01/08/20 00:00 Mechanical Ventilator 01/08/20 00:00 87 01/07/20 23:35 75 18 40 01/07/20 23:00 84 21 101/88 (92) 100 01/07/20 22:00 106 24 111/63 (79) 99 01/07/20 21:50 117 27 117/65 (82) 99 01/07/20 21:27 160 29 152/137 (142) 84 01/07/20 21:25 153 165/145 9/28/20 21:01 123 118/71 01/07/20 21:00 129 23 165/146 (152) 93 01/07/20 20:00 Mechanical Ventilator 01/07/20 20:00 40 01/07/20 20:00 98.7 101 24 118/71 (87) 100 01/07/20 19:22 110 01/07/20 19:00 138 25 135/69 (91) 97 01/07/20 18:57 123 25 40 01/07/20 18:57 155 138/99 01/07/20 18:00 155 28 138/99 (112) 97 01/07/20 17:00 114 27 121/71 (88) 100 01/07/20 17:00 108 22 121/71 (88) 100 01/07/20 16:00 98.8 104 18 104/61 (75) 100 01/07/20 16:00 101 01/07/20 16:00 Mechanical Ventilator 01/07/20 16:00 40 01/07/20 15:00 115 25 114/65 (81) 99 01/07/20 14:30 98 19 40 01/07/20 14:14 94 111/69 01/07/20 14:00 99 16 111/65 (80) 99 I&O Intake and Output 01/07/20 01/08/20 18:59 06:59 Intake Total 1810 ml 1210 ml Output Total 1385 ml 1325 ml Balance 425 ml -115 ml Free Water 400 ml IV Total 960 ml 910 ml Tube Feeding 450 ml 90 ml Other 210 ml Output Urine Total 1385 ml 1325 ml Dressing: other Wound: other Cardiovascular: RSR Respiratory: decreased breath sounds Abdomen: non-tender, present bowel sounds Extremities: edema, cyanosis, no tenderness Laboratory Tests Test 01/07/20 23:47 01/08/20 05:43 01/08/20 07:46 01/08/20 10:58 POC Whole Blood Glucose 140 MG/DL (74-106) H 106 MG/DL (74-106) Arterial Blood pH 7.453 (7.350-7.450) 7.240 (7.350-7.450) Arterial Blood Partial Pressure CO2 43.1 mmHg (35.0-45.0) 70.3 mmHg (35.0-45.0) *H Arterial Blood Partial Pressure O2 101.7 mmHg (75.0-100.0) H 79.4 mmHg (75.0-100.0) Arterial Blood HCO3 29.5 mmol/L (22.0-26.0) H 29.5 mmol/L (22.0-26.0) H Arterial Blood Oxygen Saturation 97.7 % (95-100) 91.7 % (95-100) L Arterial Blood Base Excess 5.1 (-2-2) H 1.4 (-2-2) Eugene Test Positive Positive Test 01/08/20 11:33 POC Whole Blood Glucose 147 MG/DL (74-106) H Plan Problems: (1) Urinary tract infection (2) CHF exacerbation (3) History of schizophrenia (4) Atrial fibrillation with RVR (5) Schizophrenia (6) GERD (gastroesophageal reflux disease) (7) Smoker (8) Atrial fibrillation with rapid ventricular response (9) Lymphadema (10) COPD (chronic obstructive pulmonary disease) (11) CKD (chronic kidney disease) stage 3, GFR 30-59 ml/min (12) NATALIE (acute kidney injury) (13) Dehydration (14) Dysphagia (15) UTI (urinary tract infection) (16) UGI bleed (17) ESBL (extended spectrum beta-lactamase) producing bacteria infection (18) Constipation (19) Lactic acidosis (20) Tinea cruris (21) Onychomycosis (22) Emesis (23) Essential hypertension (24) Anemia (25) Cough (26) Depression (27) Depression (28) Edema (29) Rash (30) Opiate dependence (31) Opiate dependence (32) Opiate dependence (33) Opiate dependence (34) Pyelonephritis (35) Sepsis (36) UTI (urinary tract infection) (37) Nausea and vomiting (38) Abdominal pain Assessment & Plan: [age]-year-old female obese white abdominal pain deep tissue injury identified limited mobility on HD. KUB noted tube in place continue meds feeds Does not seem obstructed We will monitor lines noted. plan change resume tube feeds labs okay FINDINGS: Lower thorax: Obscuration of the left costophrenic angle suggestive of pleural effusion. Intraperitoneal space: No free air. Gastrointestinal tract: Unremarkable. No dilation. Bones/joints: Unremarkable. Tubes, lines and devices: The nasogastric tube has the tip at the mid inferior aspect of the gastric body. Other findings: Nonspecific gas pattern. Single frontal view of the abdomen demonstrates tip of the enteric tube and distal side-port projecting over the stomach. Gas is identified within the nondistended large bowel. There is a paucity of small bowel gas seen. Partially visualized left pleural effusion. No other significant interval change. (39) Chest pain (40) Chest pain (41) Nausea (42) Obesity (43) Chronic ulcer of leg (44) Chronic ulcer of leg (45) Chronic ulcer of leg (46) ACS (acute coronary syndrome) (47) Acute chest pain (48) Encounter for dressing change or suture removal (49) Left leg cellulitis (50) Acute encephalopathy (51) Encounter for wound re-check (52) Intractable nausea and vomiting (53) Infection due to ESBL-producing Escherichia coli (54) Chronic venous stasis (55) Change of dressing (56) Change of dressing (57) Change of dressing (58) Change of dressing (59) Change of dressing (60) Change of dressing (61) Change of dressing (62) Change of dressing (63) ESBL urine (64) Lymphadema (65) Lymphedema (66) Lymphedema (67) Lymphedema (68) Lymphedema (69) Lymphedema (70) Lymphedema (71) Lymphedema (72) Lymphedema (73) Open wound of foot (74) Open wound of foot (75) cellulitis (76) chronic lymphedema (77) chronic lymphedema (78) chronic lymphedema (79) hypertension uncontrolled (80) hypertension uncontrolled (81) Intertrigo (82) Sciatica (83) Cellulitis (84) Schizophrenia (85) Chronic bronchitis (86) HTN (hypertension) (87) Venous stasis ulcers (88) Medication refill (89) Chest pain, atypical (90) BMI 45.0-49.9, adult (91) Lymphedema of both lower extremities (92) hypertension uncontrolled (93) hypertension uncontrolled (94) hypertension uncontrolled (95) tenia corpus (96) Deep tissue injury Assessment & Plan: Morbidly obese pt whom presented on admission with Pressure injuries, Edemae bilat lower extremities eschar to dorsal aspects of metatarsals. Pt is very demanding of staff and can be resistive to repositioning. DTPI noted to L Sacrum(L)5.5cm x (W)2.5cm. Base of Pressure Injury is Maroon and indurated with surrounding non-blanchable erythema DTPI R Sacrum(L)5.5cm x (W)2.3cm. Base of Pressure Injury is maroon with purpuric center that is fluctuant. Pt complained of tenderness when minimally palpated. Bilat lower extremities are edematous . Dry eschar noted to nail matrix and tip of L 1st metatarsal, Dorsal L 2nd metatarsal, R 2nd and R 4th metatarsals. Both heels are boggy with non-Blanchable erythema. blisters forming on Right lower extremity anterior tibia. not infected cellulitis / edema on b/l le stable cont abx Tx.Plan: Apply Moisture Barrier Paste to Sacrum R and L gluteal cheeks. Cover with Optifoam drsgs. Change every 3 days and prn. Apply Betadine to dry eschar metatarsals both feet Daily. Apply Cavilon Skin Barrier to both heels. Cover each heel with Optifoam drsgs. Change every 7days and prn. Reposition at least every 2hours or as tolerated. Off-load heels with pillow. right leg hematoma stable critically ill and edema on right leg has compromised dermis over the hematoma. will likely need debridement once improved (97) COVID-19 Assessment & Plan: ++ on vent weaning abx as per ID (98) Respiratory failure Assessment & Plan: not able to wean safely will plan for trach (99) Pneumonia Juan Manuel Buckner Jan 08, 2020 13:12
--- NOTE | 2020-01-08 13:13 | Pre-Procedure Note/Attestation ---
Pre-Procedure Note/Attestation Complete Prior to Procedure Procedure Narrative: tracheostomy Indications for Procedure Pre-Operative Diagnosis: respiratory insufficiency covid + Attestation I attest that I discussed the nature of the procedure; its benefits; risks and complications; and alternatives (and the risks and benefits of such alternatives), prior to the procedure, with the patient (or the patient's legal insurance follow up representative). I attest that, if there was a reasonable possibility of needing a blood transfusion, the patient (or the patient's legal insurance follow up representative) was given the [facility] standardized written summary, pursuant to the [place] Blood Safety Act ([place] Health and Safety Code # 1645, as amended). I attest that I re-evaluated the patient just prior to the surgery and that there has been no change in the patient's H&P, except as documented below: Juan Manuel Buckner Jan 08, 2020 13:13
--- NOTE | 2020-01-08 13:27 | NUR ---
NURSE NOTES: Failed weaning reported to Dr. Buckner, Dr. Dumont and Dr. Carpio. Plan for trach tomorrow. Fever also reported to Dr. Carpio and need for sedation. Orders received. Also spoke with Dr. Victoria who stated that plan is for PEG on .
[2020-01-08] MEDS: fentaNYL 2500mcg/NS 250ml 250 ML IV SCH ×2 (14:30→14:31)
--- NOTE | 2020-01-08 14:39 | NUR ---
RADIOLOGY DEPT., CHEST X-RAY DONE.-P.DYE
--- NOTE | 2020-01-08 15:00 | NUR ---
NURSE NOTES: Dr. Coronel informed of patient's fevers.
--- NOTE | 2020-01-08 15:05 | Anethesia Preoperative Eval ---
Anesthesia Pre-op PMH/ROS General Date of Evaluation: Jan 08, 2020 Time of Evaluation: 14:58 Anesthesiologist: Slick ASA Score: ASA 4 Mallampati Score Class I : Soft palate, uvula, fauces, pillars visible Class II: Soft palate, uvula, fauces visible Class III: Soft palate, base of uvula visible Class IV: Only hard plate visible Mallampati Classification: Class III - Oraly intubated Surgeon: Ivy Diagnosis: Respiratory failure Surgical Procedure: Tracheostomy Anesthesia History: none Social History: smoking - h/o smoking Family History: no anesthesia problems Allergies: Coded Allergies: ERYTHROMYCIN BASE (Verified Allergy, Severe, 12/12/19) HALOPERIDOL (Verified Allergy, Unknown, 12/12/19) VANCOMYCIN (Unverified Adverse Reaction, Intermediate, Shortness of Breath, 12/12/19) Medications: see eMAR Patient NPO?: Yes Past Medical History Cardiovascular: Reports: HTN, CAD, arrhythmia - A fib RVR, other - CHF Pulmonary: Reports: COPD, other - Respiratory failure Gastrointestinal/Genitourinary: Reports: GERD, CRI - elevated Cr., other - Dysphagia Neurologic/Psychiatric: Reports: dementia, other - Schizophrenia; Denies: CVA, depression/anxiety, TIA Endocrine: Reports: DM, hypothyroidism, steroids; Denies: other HEENT: Reports: cataract (L), cataract (R) Hematology/Immune: Reports: anemia - of chronic d-s, bleeding disorder - thrombocytopenia, other - Pancytopenia; Denies: DVT Musculoskeletal/Integumentary: Reports: edema - all 4 extremitis, other - decubitus wounds Other: obesity - morbid obesity PMH Narrative: as above PSxH Narrative: See H&P Anesthesia Pre-op Phys. Exam Physician Exam Last Vital Signs Date Time Temp Pulse Resp B/P (MAP) Pulse Ox O2 Delivery O2 Flow Rate FiO2 01/08/20 14:31 20 93/59 40 01/08/20 13:00 103 100 01/08/20 12:00 100.0 01/08/20 12:00 Mechanical Ventilator 01/01/20 14:07 40.0 Constitutional: NAD Neurologic: other - unable to obtaine Cardiovascular: other - IIR Respiratory: other - diminished breath sounds, diffuse wheezing Gastrointestinal: other - morbid obesity Airway Exam Mallampati Score: Class III MO: limited Neck: short thick ROM: limited Teeth: missing Dentures: no upper, no lower Anesthesia Pre-op A/P Labs Chemistry Test 01/07/20 23:47 01/08/20 05:43 01/08/20 11:33 POC Whole Blood Glucose 140 MG/DL (74-106) H 106 MG/DL (74-106) 147 MG/DL (74-106) H Risk Assessment & Plan Assessment: ASA 4 Plan: GA with Ronaldo Victor MD Jan 08, 2020 15:05
--- NOTE | 2020-01-08 15:21 | Infectious Diseases Prog Note ---
Assessment/Plan Assessment/Plan ASSESSMENT AND PLAN: 1. hx esbl e.coli uti/pyelonephritis, sepsis, leukocytosis, fevers mrsa and vre colonization, NATALIE, respiratory distress/failure Fungemia - + yeast in blood - ID still pending mrsa pna/acinetobacter pna VRE uti covid-19 infection right leg swelling and redness noted, ? cellulitis, ? infected hematoma, ? wound infection - zyvox, polymyxin, zosyn - micafungin - da# 14/ post negative blood cultures - discontinue - surveillance cultures for fevers - s/p remdesivir, on dexamethasone - monitor labs and chest x-ray - debridement right leg per surgery when patient stable - 2. Chronic kidney failure, acute renal failure. 3. COPD. 4. Pulmonary followup. 5. Renal followup. 6. History of falls. 7. Atrial fibrillation. Cardiology followup. 8. Obesity. 9. Gait disorder. 10. Schizophrenia. 11. Homeless. 12. Allergic to erythromycin, haloperidol, and vancomycin. 13. Social history is negative. 14. Family history is noncontributory. 15. MAR is noted. 16. Case discussed with RN. 17. Continue treatment per Dr. Dumont and consultants. Subjective Constitutional: Reports: fever, other - on vent, no pressors HEENT: Reports: congestion Respiratory: Reports: shortness of breath Cardiovascular: Reports: chest pain - no pressors Gastrointestinal/Abdominal: Denies: nausea, vomiting, diarrhea Genitourinary: Reports: other - + trivedi Neurologic: Reports: weakness Psychiatric: Reports: other - NA Skin: Denies: rash Hematologic: Denies: bleeding Musculoskeletal: Reports: other - NA Allergies: Coded Allergies: ERYTHROMYCIN BASE (Verified Allergy, Severe, 12/12/19) HALOPERIDOL (Verified Allergy, Unknown, 12/12/19) VANCOMYCIN (Unverified Adverse Reaction, Intermediate, Shortness of Breath, 12/12/19) Objective Last 24 Hour Vital Signs Date Time Temp Pulse Resp B/P (MAP) Pulse Ox O2 Delivery O2 Flow Rate FiO2 01/08/20 14:31 20 93/59 40 01/08/20 13:00 103 20 103/62 (76) 100 01/08/20 12:00 100.0 90 18 94/59 (71) 01/08/20 12:00 Mechanical Ventilator 01/08/20 12:00 96 01/08/20 11:15 100 9/29/20 11:15 107 23 40 01/08/20 11:00 106 23 116/61 (79) 95 01/08/20 10:00 101.2 117 24 118/70 (86) 95 01/08/20 10:00 101.2 01/08/20 09:37 98 26 40 01/08/20 09:30 40 01/08/20 09:00 115 18 113/65 (81) 100 01/08/20 08:47 116 106/60 01/08/20 08:00 40 01/08/20 08:00 Mechanical Ventilator 01/08/20 08:00 90 01/08/20 08:00 101.5 107 24 106/90 (95) 99 01/08/20 07:20 101 27 99 Mechanical Ventilator 40 01/08/20 07:20 101 27 40 01/08/20 07:00 90 18 106/67 (80) 100 01/08/20 06:00 100 18 108/66 (80) 100 01/08/20 05:32 113 108/82 01/08/20 05:00 112 21 108/82 (91) 100 01/08/20 04:00 92 01/08/20 04:00 40 01/08/20 04:00 Mechanical Ventilator 01/08/20 04:00 99.5 92 22 106/60 (75) 100 01/08/20 03:39 95 18 40 01/08/20 03:34 99 22 104/63 (77) 100 01/08/20 03:00 102 20 87/71 (76) 98 01/08/20 02:00 80 18 94/58 (70) 100 01/08/20 01:00 88 23 114/71 (85) 95 01/08/20 00:00 100.4 87 22 115/63 (80) 100 01/08/20 00:00 40 01/08/20 00:00 Mechanical Ventilator 01/08/20 00:00 87 01/07/20 23:35 75 18 40 01/07/20 23:00 84 21 101/88 (92) 100 01/07/20 22:00 106 24 111/63 (79) 99 01/07/20 21:50 117 27 117/65 (82) 99 01/07/20 21:27 160 29 152/137 (142) 84 01/07/20 21:25 153 165/145 01/07/20 21:01 123 118/71 01/07/20 21:00 129 23 165/146 (152) 93 01/07/20 20:00 Mechanical Ventilator 01/07/20 20:00 40 01/07/20 20:00 98.7 101 24 118/71 (87) 100 01/07/20 19:22 110 01/07/20 19:00 138 25 135/69 (91) 97 01/07/20 18:57 123 25 40 01/07/20 18:57 155 138/99 01/07/20 18:00 155 28 138/99 (112) 97 01/07/20 17:00 114 27 121/71 (88) 100 01/07/20 17:00 108 22 121/71 (88) 100 01/07/20 16:00 98.8 104 18 104/61 (75) 100 01/07/20 16:00 101 01/07/20 16:00 Mechanical Ventilator 01/07/20 16:00 40 Height (Feet): 5 Height (Inches): 6.00 Weight (Pounds): 298 General Appearance: other - on vent HEENT: normocephalic, atraumatic, anicteric, no JVD, other - oral - intubated Respiratory/Chest: crackles/rales, rhonchi - bilaterally Cardiovascular: normal rate, regular rhythm, no gallop/murmur, no JVD Abdomen: normal bowel sounds, soft, non tender, no organomegaly, non distended Genitourinary: other - + trivedi Extremities: no cyanosis, other - right leg swelling and redness without change Skin: no rash Neurologic/Psychiatric: hand button splitter II-XII grossly normal, alert, responsive Lymphatic: no neck adenopathy Musculoskeletal: no effusion Chest x-ray - 11/17/19 - Procedure: XRAY Chest 1v Indication: Shortness of breath Technique: One view of the chest Comparison: 12/17/2019 Findings: The heart is enlarged. There is bilateral interstitial and airspace disease is again demonstrated, probably unchanged allowing for differences in degree of inspiration. Impression: Unchanged, over one day, findings as above. Chest x-ray - 12/21/19 - Procedure: XRAY Chest 1v Indication: Shortness of breath Technique: One view of the chest Comparison: 12/19/2019 Findings: The heart is enlarged. Bilateral extensive infiltrates are again demonstrated, stable to slightly worse allowing for differences in exposure technique. There is suggestion of increasing pleural fluid on the left. Nasogastric tube is again demonstrated. Impression: Stable to worsened bilateral extensive infiltrates, since exam of 2 days prior Increasing left pleural effusion Chest x-ray - 12/23/19 - IMPRESSION: 1. No significant interval change from the prior chest x-ray. 2. Persistent moderate left pleural effusion and mild right pleural effusion. 3. Pulmonary vascular congestion. 4. Persistent opacity in the left lung base, which may represent atelectasis versus pneumonia. Chest x-ray - 12/25/19 - Procedure: XRAY Chest 1v Procedure: XRAY Chest 1v Reason for study: Reason For Exam: SOB Comparison films: 12/24/2019. FINDINGS: The tracheal tube and NG tube remain in place. Vascular prominence and bilateral hazy alveolar densities are unchanged. Cardiomegaly and small effusions also uncha nged. The bony thorax appear unremarkable. IMPRESSION: NO SIGNIFICANT CHANGE COMPARED TO PREVIOUS EXAM. 12/26/19 - Procedure: XRAY Chest 1v Procedure: XRAY Chest 1v Reason for study: Reason For Exam: SOB Comparison films: 12/25/2019. FINDINGS: Endotracheal tube and NG tube remain in place. Hazy bilateral alveolar densities are essentially unchanged given the difference in technique. Cardiomegaly and right effusion again noted. The bony thorax appear unremarkable. IMPRESSION: NO SIGNIFICANT CHANGE COMPARED TO PREVIOUS EXAM. Chest x-ray - 12/28/19 - Procedure: XRAY Chest 1v Indication: Reason For Exam: SOB Technique: Single AP view of the chest. Comparison: Chest radiograph dated 12/27/2019 Findings: Exam is again noted to be diagnostically limited due to underpenetration, patient rotation, and exclusion of part of the left hemithorax from the [id number]. Within these limitations: No significant change in appearance of visualized cardiomediastinal silhouette. Unchanged layering right pleural effusion with associated basilar airspace opacities. Likely retrocardiac consolidation, unchanged. No apical pneumothoraces. Unchanged enteric and endotracheal tubes. Unchanged left PICC. Chest x-ray - 12/30/19 - FINDINGS: Distal tip of ET tube is above devika. Distal tip of the enteric tube is in stomach. Stable left arm PICC line with distal tip likely in the left subclavian vein. Cardiac silhouette is within normal limits allowing for portable and rotated technique. Low lung volumes with elevated left hemidiaphragm. Again noted is a moderate right effusion with patchy infiltrates in the right mid to lower lung. Probable retrocardiac infiltrates. IMPRESSION: Little interval change in moderate right effusion and pneumonia/aspiration. Suspected retrocardiac infiltrate. The distal tip of the left arm PICC line is not well seen past the level of the left mid subclavian vein. Stephan location is in the cavoatrial junction. Recommend advancement. <MYCVCSECTION> Chest x-ray - 01/04/20 - Procedure: XRAY Chest 1v Indication: Dyspnea Technique: One view of the chest Comparison: 01/02/2020 Findings: Bilateral interstitial and airspace congestion, right pleural ef fusion, cardiomegaly persists, unchanged. Tube and line positions are unchanged Impression: Unchanged, over one day, findings as above. Chest x-ray - 01/06/20 - IMPRESSION: 1. Endotracheal tube terminates in the region of the lower thoracic trachea, approximately 2.6 cm above the devika. Enteric tube is difficult to visualize distally. 2. Similar opacities predominantly in the mid and lower lungs which may represent combination of pleural effusions and atelectasis versus pneumonia versus edema. Chest x-ray - 01/07/20 - Procedure: XRAY Chest 1v Indication: Shortness of breath Technique: One view of the chest Comparison: 01/06/2020 Findings: Stable satisfactory positions of endotracheal and orogastric tubes. Mild interstitial congestion and hazy ankle opacities are again demonstrated bilaterally. There appears to be a small amount of pleural fluid bilaterally, probably unchanged. Impression: Unchanged, over one day, findings as above. Microbiology Date/Time Source Procedure Growth Status 01/06/20 18:05 Sputum Expectorated Gram Stain - Final Resulted 01/06/20 18:05 Sputum Culture - Preliminary Gram Negative Bacillus 1 Resulted 12/25/19 15:45 Blood Blood Culture - Preliminary NO GROWTH AFTER 4 DAYS Resulted 12/17/19 20:45 Indwelling Cath Urine Culture - Final Enterococcus Faecium - Vre Complete 12/12/19 21:00 Rectum - Final NO CARBAPENEM-RESISTANT ENTEROBACTERI... Complete Microbiology Date/Time Source Procedure Growth Status 01/06/20 18:05 Sputum Expectorated Gram Stain - Final Resulted 01/06/20 18:05 Sputum Culture - Preliminary Gram Negative Bacillus 1 Resulted Labs Test 01/05/20 17:18 01/06/20 04:30 01/06/20 05:08 01/06/20 07:39 POC Whole Blood Glucose 100 MG/DL (74-106) 135 MG/DL (74-106) White Blood Count 2.6 K/UL (4.8-10.8) Red Blood Count 2.58 M/UL (4.20-5.40) Hemoglobin 7.5 G/DL (12.0-16.0) Hematocrit 22.3 % (37.0-47.0) Mean Corpuscular Volume 87 FL (80-99) Mean Corpuscular Hemoglobin 29.0 PG (27.0-31.0) Mean Corpuscular Hemoglobin Concent 33.5 G/DL (32.0-36.0) Red Cell Distribution Width 17.3 % (11.6-14.8) Platelet Count 82 K/UL (150-450) Mean Platelet Volume 6.8 FL (6.5-10.1) Neutrophils (%) (Auto) % (45.0-75.0) Lymphocytes (%) (Auto) % (20.0-45.0) Monocytes (%) (Auto) % (1.0-10.0) Eosinophils (%) (Auto) % (0.0-3.0) Basophils (%) (Auto) % (0.0-2.0) Differential Total Cells Counted 100 Neutrophils % (Manual) 69 % (45-75) Lymphocytes % (Manual) 20 % (20-45) Monocytes % (Manual) 9 % (1-10) Eosinophils % (Manual) 1 % (0-3) Basophils % (Manual) 1 % (0-2) Band Neutrophils 0 % (0-8) Platelet Estimate Decreased Platelet Morphology Normal Hypochromasia 3+ Sodium Level 138 MMOL/L (136-145) Potassium Level 3.7 MMOL/L (3.5-5.1) Chloride Level 102 MMOL/L (98-107) Carbon Dioxide Level 33 MMOL/L (21-32) Blood Urea Nitrogen 68 mg/dL (7-18) Creatinine 1.7 MG/DL (0.55-1.30) Estimat Glomerular Filtration Rate 30.0 mL/min (>60) Glucose Level 139 MG/DL (74-106) Calcium Level 8.3 MG/DL (8.5-10.1) Arterial Blood pH 7.532 (7.350-7.450) Arterial Blood Partial Pressure CO2 38.8 mmHg (35.0-45.0) Arterial Blood Partial Pressure O2 89.1 mmHg (75.0-100.0) Arterial Blood HCO3 31.8 mmol/L (22.0-26.0) Arterial Blood Oxygen Saturation 96.5 % (95-100) Arterial Blood Base Excess 8.5 (-2-2) Eugene Test Positive Test 01/06/20 18:05 01/07/20 04:30 01/07/20 07:28 01/07/20 08:30 Urine Color Yellow Urine Appearance Clear Urine pH 6.5 (4.5-8.0) Urine Specific [place] 1.005 (1.005-1.035) Urine Protein 1+ (NEGATIVE) Urine Glucose (UA) Negative (NEGATIVE) Urine Ketones 1+ (NEGATIVE) Urine Blood Negative (NEGATIVE) Urine Nitrite Negative (NEGATIVE) Urine Bilirubin Negative (NEGATIVE) Urine Urobilinogen 12 MG/DL (0.0-1.0) Urine Leukocyte Esterase 1+ (NEGATIVE) Urine RBC 0-2 /HPF (0 - 2) Urine WBC 2-4 /HPF (0 - 2) Urine Squamous Epithelial Cells Few /LPF (NONE/OCC) Urine Bacteria Few /HPF (NONE) White Blood Count 2.9 K/UL (4.8-10.8) Red Blood Count 2.51 M/UL (4.20-5.40) Hemoglobin 7.1 G/DL (12.0-16.0) Hematocrit 22.2 % (37.0-47.0) Mean Corpuscular Volume 89 FL (80-99) Mean Corpuscular Hemoglobin 28.2 PG (27.0-31.0) Mean Corpuscular Hemoglobin Concent 31.8 G/DL (32.0-36.0) Red Cell Distribution Width 17.7 % (11.6-14.8) Platelet Count 91 K/UL (150-450) Mean Platelet Volume 7.0 FL (6.5-10.1) Neutrophils (%) (Auto) % (45.0-75.0) Lymphocytes (%) (Auto) % (20.0-45.0) Monocytes (%) (Auto) % (1.0-10.0) Eosinophils (%) (Auto) % (0.0-3.0) Basophils (%) (Auto) % (0.0-2.0) Differential Total Cells Counted 100 Neutrophils % (Manual) 69 % (45-75) Lymphocytes % (Manual) 25 % (20-45) Monocytes % (Manual) 4 % (1-10) Eosinophils % (Manual) 2 % (0-3) Basophils % (Manual) 0 % (0-2) Band Neutrophils 0 % (0-8) Platelet Estimate Decreased Platelet Morphology Normal Polychromasia 1+ Hypochromasia 1+ Anisocytosis 1+ Sodium Level 139 MMOL/L (136-145) Potassium Level 3.8 MMOL/L (3.5-5.1) Chloride Level 103 MMOL/L (98-107) Carbon Dioxide Level 30 MMOL/L (21-32) Anion Gap 6 mmol/L (5-15) Blood Urea Nitrogen 58 mg/dL (7-18) Creatinine 1.7 MG/DL (0.55-1.30) Estimat Glomerular Filtration Rate 30.0 mL/min (>60) Glucose Level 112 MG/DL (74-106) Calcium Level 8.1 MG/DL (8.5-10.1) Arterial Blood pH 7.511 (7.350-7.450) Arterial Blood Partial Pressure CO2 40.9 mmHg (35.0-45.0) Arterial Blood Partial Pressure O2 116.6 mmHg (75.0-100.0) Arterial Blood HCO3 32.0 mmol/L (22.0-26.0) Arterial Blood Oxygen Saturation 97.7 % (95-100) Arterial Blood Base Excess 8.2 (-2-2) Eugene Test Positive Ferritin 871 NG/ML (8-388) Test 01/07/20 23:47 01/08/20 05:43 01/08/20 07:46 01/08/20 10:58 POC Whole Blood Glucose 140 MG/DL (74-106) 106 MG/DL (74-106) Arterial Blood pH 7.453 (7.350-7.450) 7.240 (7.350-7.450) Arterial Blood Partial Pressure CO2 43.1 mmHg (35.0-45.0) 70.3 mmHg (35.0-45.0) Arterial Blood Partial Pressure O2 101.7 mmHg (75.0-100.0) 79.4 mmHg (75.0-100.0) Arterial Blood HCO3 29.5 mmol/L (22.0-26.0) 29.5 mmol/L (22.0-26.0) Arterial Blood Oxygen Saturation 97.7 % (95-100) 91.7 % (95-100) Arterial Blood Base Excess 5.1 (-2-2) 1.4 (-2-2) Eugene Test Positive Positive Test 01/08/20 11:33 POC Whole Blood Glucose 147 MG/DL (74-106) Laboratory Tests Test 01/07/20 23:47 01/08/20 05:43 01/08/20 07:46 01/08/20 10:58 POC Whole Blood Glucose 140 MG/DL (74-106) H 106 MG/DL (74-106) Arterial Blood pH 7.453 (7.350-7.450) 7.240 (7.350-7.450) Arterial Blood Partial Pressure CO2 43.1 mmHg (35.0-45.0) 70.3 mmHg (35.0-45.0) *H Arterial Blood Partial Pressure O2 101.7 mmHg (75.0-100.0) H 79.4 mmHg (75.0-100.0) Arterial Blood HCO3 29.5 mmol/L (22.0-26.0) H 29.5 mmol/L (22.0-26.0) H Arterial Blood Oxygen Saturation 97.7 % (95-100) 91.7 % (95-100) L Arterial Blood Base Excess 5.1 (-2-2) H 1.4 (-2-2) Eugene Test Positive Positive Test 01/08/20 11:33 POC Whole Blood Glucose 147 MG/DL (74-106) H Current Medications Medications (Trade) Dose Ordered Sig/Shiraz Route PRN Reason Start Time Stop Time Status Last Admin Dose Admin Acetaminophen (Tylenol) 650 mg Q4H PRN NG Mild Pain (Pain Scale 1-3) 12/22/19 16:00 01/11/20 22:14 01/06/20 12:42 Acetaminophen (Tylenol) 650 mg Q4H PRN NG Temp >100.5 12/22/19 16:00 01/11/20 22:14 01/08/20 09:25 Acetazolamide (Diamox) 500 mg TWICE A DAY NG 01/02/20 18:00 02/01/20 17:59 01/08/20 08:46 Albuterol Sulfate (Proventil MDI) 2 puff Q4H PRN INH Shortness of Breath 12/24/19 10:30 03/23/20 10:29 Bacitracin (Bacitracin) 2 applic EVERY 12 HOURS TOPIC 01/06/20 21:00 03/12/20 08:59 01/08/20 09:25 Chlorhexidine Gluconate (Jessie-Hex 2%) 1 applic DAILY@1999 TOPIC 12/24/19 20:00 03/23/20 19:59 01/07/20 19:41 Chlorpromazine (Thorazine) 50 mg Q6H PRN IM agitation 12/30/19 02:30 01/29/20 02:29 01/07/20 23:57 Clotrimazole (Lotrimin) 1 applic EVERY 12 HOURS TOPIC 01/05/20 09:00 03/12/20 08:59 01/08/20 09:25 Dextrose (Dextrose 50%) 25 ml Q30M PRN IV Hypoglycemia 12/23/19 10:45 03/22/20 10:44 Dextrose (Dextrose 50%) 50 ml Q30M PRN IV Hypoglycemia 12/23/19 10:45 03/22/20 10:44 Diltiazem HCl (Cardizem Tab) 60 mg Q8HR NG 01/06/20 16:15 02/05/20 16:14 01/08/20 05:32 Docusate Sodium (Colace) 100 mg BID NG 12/25/19 09:00 01/24/20 08:59 01/08/20 08:47 Enoxaparin Sodium (Lovenox) 60 mg DAILY SUBQ 12/23/19 09:00 03/22/20 08:59 12/29/19 08:50 Fentanyl Citrate 250 ml @ 0 mls/hr Q24H IV 01/08/20 14:00 01/10/20 13:59 01/08/20 14:31 Furosemide (Lasix) 100 mg Q6HR IV 01/05/20 12:00 01/30/20 11:59 01/08/20 12:24 Insulin Aspart (NovoLOG) EVERY 6 HOURS SUBQ 01/05/20 06:00 03/22/20 11:29 01/07/20 18:04 Iron Sucrose 100 mg/Sodium Chloride 60 ml @ 240 mls/hr BEDTIME IV 01/05/20 21:00 01/09/20 21:14 01/07/20 21:01 Linezolid 300 ml @ 300 mls/hr Q12HR IVPB 01/06/20 21:00 01/13/20 20:59 01/08/20 08:50 Magnesium Hydroxide (Mom) 30 ml HSPRN PRN NG Constipation 12/22/19 15:15 01/21/20 15:14 01/02/20 22:20 Metoclopramide HCl (Reglan) 5 mg Q6H IVP 01/05/20 09:15 02/04/20 09:14 01/08/20 14:32 Metoprolol Tartrate (Lopressor) 50 mg Q12HR NG 12/22/19 21:00 03/18/20 20:59 01/08/20 08:47 Micafungin Sodium 100 mg/Sodium Chloride 110 ml @ 110 mls/hr Q24H IVPB 01/05/20 09:00 01/14/20 08:59 01/08/20 08:49 Midazolam HCl (Versed 2mg/2ml vial) 2 mg Q1H PRN IVP For Anxiety 01/02/20 07:45 01/09/20 07:44 01/08/20 12:29 Nitroglycerin (Ntg) 0.4 mg Q5M PRN SL Prn Chest Pain 12/22/19 15:00 01/11/20 22:14 Ondansetron HCl (Zofran) 4 mg Q6H PRN IVP Nausea & Vomiting 12/22/19 15:15 01/11/20 15:14 Pantoprazole (Protonix) 40 mg EVERY 12 HOURS IVP 01/01/20 21:00 01/31/20 20:59 01/08/20 08:46 Polyethylene Glycol (Miralax) 17 gm BEDTIME NG 12/22/19 21:00 01/18/20 20:59 01/07/20 21:00 Polymyxin B Sulfate 888941 units/Dextrose 550 ml @ 550 mls/hr EVERY 12 HOURS IV 01/06/20 11:00 01/13/20 10:59 01/08/20 08:49 Potassium Chloride (K-Dur) 40 meq EVERY 12 HOURS NG 01/05/20 11:45 04/04/20 11:14 01/08/20 08:47 Quetiapine Fumarate (SEROqueL) 100 mg EVERY 8 HOURS ORAL 01/04/20 22:00 02/16/20 21:59 01/08/20 14:32 Aleisha Coronel MD Jan 08, 2020 15:21
--- NOTE | 2020-01-08 16:30 | NUR ---
NURSE NOTES: Patient overly sedated (RASS -3) with hypotension at 1615. Fentanyl titrated down to 20mcg/hr. Patient now normotensive and at goal of RASS -2.
[2020-01-08 17:00] LABS: ALBUMIN 1.7 G/DL (3.4-5.0); ALBUMIN/GLOBULIN RATIO 0.5 (1.0-2.7); BILIRUBIN,TOTAL 1.2 MG/DL (0.2-1.0); CREATININE 1.8 MG/DL (0.55-1.30); POTASSIUM 4.2 MMOL/L (3.5-5.1)
[2020-01-08 17:01] LABS: BILIRUBIN,DIRECT 0.7 MG/DL (0.0-0.3)
--- NOTE | 2020-01-08 17:01 | Diagnostic Imaging Report ---
Indication: Reason For Exam: F/U Technique: Single AP view of the chest. Comparison: Chest radiograph dated 12/30/2019 Findings: The cardiomediastinal silhouette is unchanged in appearance. Redemonstration of diffuse interstitial opacities. Of apparent worsening of aeration of the right lung. Unchanged small right pleural effusion. No pneumothorax. Unchanged left PICC, endotracheal tube, and enteric tube. IMPRESSION: Apparent worsening aeration of the right lung may be due to technical factors.
--- NOTE | 2020-01-08 18:00 | NUR ---
NURSE NOTES: Patient stable at this time. Fentanyl effective at maintaining patient calm and resting. Temp now 99.8, same as prior reading.
--- NOTE | 2020-01-08 18:20 | General Progress Note ---
Subjective ROS Limited/Unobtainable: Yes Allergies: Coded Allergies: ERYTHROMYCIN BASE (Verified Allergy, Severe, 12/12/19) HALOPERIDOL (Verified Allergy, Unknown, 12/12/19) VANCOMYCIN (Unverified Adverse Reaction, Intermediate, Shortness of Breath, 12/12/19) Objective Last 24 Hour Vital Signs Date Time Temp Pulse Resp B/P (MAP) Pulse Ox O2 Delivery O2 Flow Rate FiO2 01/08/20 16:30 18 109/48 Endotracheal Tube 40 01/08/20 16:30 97 18 109/48 (68) 99 01/08/20 16:15 18 84/59 Endotracheal Tube 40 01/08/20 16:15 98 18 84/59 (67) 98 01/08/20 16:00 18 87/50 Endotracheal Tube 40 01/08/20 16:00 40 01/08/20 16:00 89 01/08/20 16:00 Mechanical Ventilator 01/08/20 16:00 99.8 98 18 87/50 (62) 99 01/08/20 15:48 97 18 99/59 (72) 98 01/08/20 15:45 18 99/59 Endotracheal Tube 40 01/08/20 15:45 96 18 94/60 (71) 97 01/08/20 15:30 18 94/60 Endotracheal Tube 40 01/08/20 15:30 98 17 88/62 (71) 95 01/08/20 15:20 95 20 40 01/08/20 15:15 18 88/62 Endotracheal Tube 40 01/08/20 15:15 101 18 98/63 (75) 99 01/08/20 15:00 18 98/63 Endotracheal Tube 40 01/08/20 15:00 93 19 92/57 (69) 100 01/08/20 14:45 96 19 90/63 (72) 100 01/08/20 14:45 19 90/63 Endotracheal Tube 40 01/08/20 14:30 92 19 95/57 (70) 100 01/08/20 14:30 18 95/57 Endotracheal Tube 40 01/08/20 14:00 94 18 93/59 (70) 01/08/20 13:00 103 20 103/62 (76) 100 01/08/20 12:00 40 01/08/20 12:00 100.0 90 18 94/59 (71) 01/08/20 12:00 Mechanical Ventilator 01/08/20 12:00 96 01/08/20 11:16 40 01/08/20 11:15 100 01/08/20 11:15 107 23 40 01/08/20 11:00 106 23 116/61 (79) 95 01/08/20 10:00 101.2 117 24 118/70 (86) 95 01/08/20 10:00 101.2 01/08/20 09:37 98 26 40 01/08/20 09:30 40 01/08/20 09:00 115 18 113/65 (81) 100 01/08/20 08:47 116 106/60 01/08/20 08:00 40 01/08/20 08:00 Mechanical Ventilator 01/08/20 08:00 90 01/08/20 08:00 101.5 107 24 106/90 (95) 99 01/08/20 07:20 101 27 99 Mechanical Ventilator 40 01/08/20 07:20 101 27 40 01/08/20 07:00 90 18 106/67 (80) 100 01/08/20 06:00 100 18 108/66 (80) 100 01/08/20 05:32 113 108/82 01/08/20 05:00 112 21 108/82 (91) 100 01/08/20 04:00 92 01/08/20 04:00 40 01/08/20 04:00 Mechanical Ventilator 01/08/20 04:00 99.5 92 22 106/60 (75) 100 01/08/20 03:39 95 18 40 01/08/20 03:34 99 22 104/63 (77) 100 01/08/20 03:00 102 20 87/71 (76) 98 01/08/20 02:00 80 18 94/58 (70) 100 01/08/20 01:00 88 23 114/71 (85) 95 01/08/20 00:00 100.4 87 22 115/63 (80) 100 01/08/20 00:00 40 01/08/20 00:00 Mechanical Ventilator 01/08/20 00:00 87 01/07/20 23:35 75 18 40 01/07/20 23:00 84 21 101/88 (92) 100 01/07/20 22:00 106 24 111/63 (79) 99 01/07/20 21:50 117 27 117/65 (82) 99 01/07/20 21:27 160 29 152/137 (142) 84 01/07/20 21:25 153 165/145 01/07/20 21:01 123 118/71 01/07/20 21:00 129 23 165/146 (152) 93 01/07/20 20:00 Mechanical Ventilator 01/07/20 20:00 40 01/07/20 20:00 98.7 101 24 118/71 (87) 100 01/07/20 19:22 110 01/07/20 19:00 138 25 135/69 (91) 97 01/07/20 18:57 123 25 40 01/07/20 18:57 155 138/99 Intake and Output 01/07/20 01/08/20 18:59 06:59 Intake Total 1810 ml 1210 ml Output Total 1385 ml 1325 ml Balance 425 ml -115 ml Free Water 400 ml IV Total 960 ml 910 ml Tube Feeding 450 ml 90 ml Other 210 ml Output Urine Total 1385 ml 1325 ml Laboratory Tests 01/07/20 23:47: POC Whole Blood Glucose 140H 01/08/20 05:43: POC Whole Blood Glucose 106 01/08/20 07:46: Arterial Blood pH 7.453H, Arterial Blood Partial Pressure CO2 43.1, Arterial Blood Partial Pressure O2 101.7H, Arterial Blood HCO3 29.5H, Arterial Blood Oxygen Saturation 97.7, Arterial Blood Base Excess 5.1H, Eugene Test Positive 01/08/20 10:58: Arterial Blood pH 7.240*L, Arterial Blood Partial Pressure CO2 70.3*H, Arterial Blood Partial Pressure O2 79.4, Arterial Blood HCO3 29.5H, Arterial Blood Oxygen Saturation 91.7L, Arterial Blood Base Excess 1.4, Eugene Test Positive 01/08/20 11:33: POC Whole Blood Glucose 147H 01/08/20 15:15: Sodium Level 143, Potassium Level 4.2, Chloride Level 106, Carbon Dioxide Level 27, Anion Gap 10, Blood Urea Nitrogen 49H, Creatinine 1.8H, Estimat Glomerular Filtration Rate 28.0, Glucose Level 105, Calcium Level 8.0L, Total Bilirubin 1.2H, Direct Bilirubin 0.7H, Aspartate Amino Transf (AST/SGOT) 18, Alanine Aminotransferase (ALT/SGPT) 13, Alkaline Phosphatase 91, C-Reactive Protein, Quantitative 24.0H, Total Protein 5.4L, Albumin 1.7L, Globulin 3.7, Albumin/Globulin Ratio 0.5L Height (Feet): 5 Height (Inches): 6.00 Weight (Pounds): 298 General Appearance: morbidly obese, other - sedated vent Neck: normal inspection Cardiovascular: regularly irregular Respiratory/Chest: rhonchi - bilaterally Abdomen: soft Edema: mild edema Neurologic: unresponsive Assessment/Plan Problem List: (1) Schizophrenia ICD Codes: F20.9 - Schizophrenia, unspecified SNOMED: 94805911 (2) GERD (gastroesophageal reflux disease) ICD Codes: K21.9 - Gastro-esophageal reflux disease without esophagitis SNOMED: 616211305 (3) Lymphadema (4) Smoker ICD Codes: F17.200 - Nicotine dependence, unspecified, uncomplicated SNOMED: 94244261 (5) Atrial fibrillation with rapid ventricular response ICD Codes: I48.91 - Unspecified atrial fibrillation SNOMED: 639666861429132 (6) CKD (chronic kidney disease) stage 3, GFR 30-59 ml/min ICD Codes: N18.3 - Chronic kidney disease, stage 3 (moderate) SNOMED: 334126551 (7) NATALIE (acute kidney injury) ICD Codes: N17.9 - Acute kidney failure, unspecified SNOMED: 3281410, 46435448 (8) COPD (chronic obstructive pulmonary disease) ICD Codes: J44.9 - Chronic obstructive pulmonary disease, unspecified SNOMED: 42139929 (9) UGI bleed ICD Codes: K92.2 - Gastrointestinal hemorrhage, unspecified SNOMED: 52091790 (10) Dysphagia ICD Codes: R13.10 - Dysphagia, unspecified SNOMED: 96938746, 903646129 (11) UTI (urinary tract infection) ICD Codes: N39.0 - Urinary tract infection, site not specified SNOMED: 52254422 (12) ESBL (extended spectrum beta-lactamase) producing bacteria infection ICD Codes: A49.9 - Bacterial infection, unspecified; Z16.12 - Extended spectrum beta lactamase (ESBL) resistance SNOMED: 912995129 (13) Dehydration ICD Codes: E86.0 - Dehydration SNOMED: 27294545 (14) CHF exacerbation ICD Codes: I50.9 - Heart failure, unspecified SNOMED: 194147328, 17740022194975 (15) Acute respiratory failure ICD Codes: J96.00 - Acute respiratory failure, unspecified whether with hypoxia or hypercapnia SNOMED: 01098309 (16) COVID-19 ICD Codes: U07.1 - COVID-19 SNOMED: 988000739 (17) Pneumonia ICD Codes: J18.9 - Pneumonia, unspecified organism SNOMED: 309136334 Qualifiers: (18) Hematoma of lower leg ICD Codes: S80.10XA - Contusion of unspecified lower leg, initial encounter SNOMED: 733131444 (19) CKD (chronic kidney disease) stage 3, GFR 30-59 ml/min ICD Codes: N18.3 - Chronic kidney disease, stage 3 (moderate) SNOMED: 732436210 Status: stable Assessment/Plan: resp distress, icu, now intubated, natalie on ckd,,now stable, I/O, ,+hematoma RLE stop eliquis ancd asa, lovenox now iv protonix, rx esbl and + vre uti,g+ cocci linezolid , remains high risk, d/w psych, ID, cardiology, chf and on lasix ,covid neg prior now +, grave prognosis, fungemia on micafungin likely will be unable to wean for a long time, agitated when tried to wean and had apnea 01/01, cpap trial 01/02 +/25 had distress/tachycardia , ,all lab and orders reviewed , no active bleeding , low Hb to start venofer, increase lasix for chf , reculture, d/w dr curran needs trach, unable to sign, he thinks that she might be able to wean gradually after trach placed, febrile again and infiltrates, icu time 40 min Benjamin Dumont MD Jan 08, 2020 18:20
--- NOTE | 2020-01-08 19:04 | NUR ---
[employer]/ INTERQUAL SENT TO [facility] [phone]
--- NOTE | 2020-01-08 19:19 | NUR ---
NURSE HAND-OFF REPORT: Latest Vital Signs: Temperature 99.8 , Pulse 97 , B/P 109 /48 , Respiratory Rate 18 , O2 SAT 99 , Endotracheal Tube, O2 Flow Rate . Vital Sign Comment: STABLE EKG Rhythm: Atrial Fibrillation Rhythm change?: Y MD Notified?: N -MD previously aware MD Response: Latest Abreu Fall Score: 75 Fall Risk: High Risk Safety Measures: Call light Within Reach, Bed Alarm Zone 1, Side Rails Side Rails x3, Bed position Low and Locked. Fall Precautions: Yellow Socks Yellow Gown Door Sign Patient Fall Education Report given to Bre COHEN. Endorsed that plan is for trach tomorrow. Monitor fevers.
--- NOTE | 2020-01-08 19:20 | NUR ---
NURSE NOTES: Received patient from NOEL Thorne. Will continue plan of care.
--- NOTE | 2020-01-08 20:00 | NUR ---
NURSE NOTES: Patient is sedated. RASS score -2; easily awakens to stimuli. Intubated; ETT 7.5 @ 24cm to the lipline to vent with settings of AC: 18, TV:600, FiO2:40%, PEEP:5. Left nare NGT running Vital @ 45ml/hr. Lockett catheter intact and draining. Left upper arm PICC running Fentanyl @ 20mcg/mins. 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 Safety measures in place; bed low, locked and alarm is on. Will continue plan of care.
[2020-01-08] MEDS: Iron Sucrose 100 MG in NS 55 ML IV SCH (20:54)
[2020-01-08] MEDS: Dyna-Hex 2% Top Sol 2oz TOPIC SCH (20:54)
[2020-01-08] MEDS: Miralax 17gm pkt NG SCH (20:55)
--- NOTE | 2020-01-08 21:42 | Cardiology Progress Note ---
Subjective DATE OF SERVICE: Jan 08, 2020 Doing poorly - remains in ICU in critical condition with guarded prognosis. Remains on vent support - failed weaning trials; will need trach. BP range remaining low normal range. Remains COVID19 positive. Monitor: AFIb Persisting respiratory acidosis req'd intubation and mech ventilation - remains far from weaning. Had coffee ground material in NGTube and hematoma on right leg; anti-coagulation discont'd Venous Duplex: negative for DVT Renal fxn and free water deficit correcting CXR (01/07/20) decreased bilateral infiltrates and eff'n - unchanged. Objective Last 24 Hour Vital Signs Date Time Temp Pulse Resp B/P (MAP) Pulse Ox O2 Delivery O2 Flow Rate FiO2 01/08/20 20:55 116 94/66 01/08/20 20:00 Mechanical Ventilator 01/08/20 20:00 40 01/08/20 19:11 104 19 40 01/08/20 19:00 107 17 97/49 (65) 100 01/08/20 18:30 18 99/48 Endotracheal Tube 40 01/08/20 18:00 99.8 98 18 99/54 (69) 01/08/20 17:30 18 98/56 Endotracheal Tube 40 01/08/20 17:15 99 18 100/52 (68) 01/08/20 17:00 94 18 102/51 (68) 01/08/20 16:45 97 18 99/47 (64) 01/08/20 16:30 18 109/48 Endotracheal Tube 40 01/08/20 16:30 97 18 109/48 (68) 99 01/08/20 16:15 18 84/59 Endotracheal Tube 40 01/08/20 16:15 98 18 84/59 (67) 98 01/08/20 16:00 18 87/50 Endotracheal Tube 40 01/08/20 16:00 40 01/08/20 16:00 89 01/08/20 16:00 Mechanical Ventilator 01/08/20 16:00 99.8 98 18 87/50 (62) 99 01/08/20 15:48 97 18 99/59 (72) 98 01/08/20 15:45 18 99/59 Endotracheal Tube 40 01/08/20 15:45 96 18 94/60 (71) 97 01/08/20 15:30 18 94/60 Endotracheal Tube 40 01/08/20 15:30 98 17 88/62 (71) 95 01/08/20 15:20 95 20 40 01/08/20 15:15 18 88/62 Endotracheal Tube 40 01/08/20 15:15 101 18 98/63 (75) 99 01/08/20 15:00 18 98/63 Endotracheal Tube 40 01/08/20 15:00 93 19 92/57 (69) 100 01/08/20 14:45 96 19 90/63 (72) 100 01/08/20 14:45 19 90/63 Endotracheal Tube 40 01/08/20 14:30 92 19 95/57 (70) 100 01/08/20 14:30 18 95/57 Endotracheal Tube 40 01/08/20 14:00 94 18 93/59 (70) 01/08/20 13:00 103 20 103/62 (76) 100 01/08/20 12:00 40 01/08/20 12:00 100.0 90 18 94/59 (71) 01/08/20 12:00 Mechanical Ventilator 01/08/20 12:00 96 01/08/20 11:16 40 01/08/20 11:15 100 01/08/20 11:15 107 23 40 01/08/20 11:00 106 23 116/61 (79) 95 01/08/20 10:00 101.2 117 24 118/70 (86) 95 01/08/20 10:00 101.2 01/08/20 09:37 98 26 40 01/08/20 09:30 40 01/08/20 09:00 115 18 113/65 (81) 100 01/08/20 08:47 116 106/60 01/08/20 08:00 40 01/08/20 08:00 Mechanical Ventilator 01/08/20 08:00 90 01/08/20 08:00 101.5 107 24 106/90 (95) 99 01/08/20 07:20 101 27 99 Mechanical Ventilator 40 01/08/20 07:20 101 27 40 01/08/20 07:00 90 18 106/67 (80) 100 01/08/20 06:00 100 18 108/66 (80) 100 01/08/20 05:32 113 108/82 01/08/20 05:00 112 21 108/82 (91) 100 9/29/20 04:00 92 01/08/20 04:00 40 01/08/20 04:00 Mechanical Ventilator 01/08/20 04:00 99.5 92 22 106/60 (75) 100 01/08/20 03:39 95 18 40 01/08/20 03:34 99 22 104/63 (77) 100 01/08/20 03:00 102 20 87/71 (76) 98 01/08/20 02:00 80 18 94/58 (70) 100 01/08/20 01:00 88 23 114/71 (85) 95 01/08/20 00:00 100.4 87 22 115/63 (80) 100 01/08/20 00:00 40 01/08/20 00:00 Mechanical Ventilator 01/08/20 00:00 87 01/07/20 23:35 75 18 40 01/07/20 23:00 84 21 101/88 (92) 100 01/07/20 22:00 106 24 111/63 (79) 99 01/07/20 21:50 117 27 117/65 (82) 99 ROS: unchanged from 12/12/19 HEENT: Orally intubated, Mechanically Ventilated, Thin secretions ET Tube, other - NGtube RHYTHM: NSR, ST LUNGS: diminished breath sounds, right-sided rhonchi CARDIAC: normal S1 and S2, irregularly irregular ABDOMEN: other - obese EXTREMITIES: moderate edema - mostly non pitting, other - hematoma right leg Laboratory Tests Test 01/07/20 23:47 01/08/20 05:43 01/08/20 07:46 01/08/20 10:58 POC Whole Blood Glucose 140 MG/DL (74-106) H 106 MG/DL (74-106) Arterial Blood pH 7.453 (7.350-7.450) 7.240 (7.350-7.450) Arterial Blood Partial Pressure CO2 43.1 mmHg (35.0-45.0) 70.3 mmHg (35.0-45.0) *H Arterial Blood Partial Pressure O2 101.7 mmHg (75.0-100.0) H 79.4 mmHg (75.0-100.0) Arterial Blood HCO3 29.5 mmol/L (22.0-26.0) H 29.5 mmol/L (22.0-26.0) H Arterial Blood Oxygen Saturation 97.7 % (95-100) 91.7 % (95-100) L Arterial Blood Base Excess 5.1 (-2-2) H 1.4 (-2-2) Eugene Test Positive Positive Test 01/08/20 11:33 01/08/20 15:15 POC Whole Blood Glucose 147 MG/DL (74-106) H Sodium Level 143 MMOL/L (136-145) Potassium Level 4.2 MMOL/L (3.5-5.1) Chloride Level 106 MMOL/L (98-107) Carbon Dioxide Level 27 MMOL/L (21-32) Anion Gap 10 mmol/L (5-15) Blood Urea Nitrogen 49 mg/dL (7-18) H Creatinine 1.8 MG/DL (0.55-1.30) H Estimat Glomerular Filtration Rate 28.0 mL/min (>60) Glucose Level 105 MG/DL (74-106) Calcium Level 8.0 MG/DL (8.5-10.1) L Total Bilirubin 1.2 MG/DL (0.2-1.0) H Direct Bilirubin 0.7 MG/DL (0.0-0.3) H Aspartate Amino Transf (AST/SGOT) 18 U/L (15-37) Alanine Aminotransferase (ALT/SGPT) 13 U/L (12-78) Alkaline Phosphatase 91 U/L (46-116) C-Reactive Protein, Quantitative 24.0 mg/dL (0.00-0.90) H Total Protein 5.4 G/DL (6.4-8.2) L Albumin 1.7 G/DL (3.4-5.0) L Globulin 3.7 g/dL Albumin/Globulin Ratio 0.5 (1.0-2.7) L Microbiology Date/Time Source Procedure Growth Status 01/06/20 18:05 Sputum Expectorated Gram Stain - Final Resulted 01/06/20 18:05 Sputum Culture - Preliminary Gram Negative Bacillus 1 Resulted Assessment/Plan Assessment/Plan CRITICAL AND GUARDED Acute respiratory failure Acute on chronic respiratory acidosis AFiB with labile heart rates CHF, ac/chr diastolic BLE edema Sepsis with shock obesity COPD with bronchospasm Acute renal failure - worsening Pleural effusion GI bleeding Anemia - multifactorial Covid 19 PNA Hypokalemia Dehydration/hypernatremia corrected Hypertension/HHD with labile BP - now stable range. Vent support Monitor acid/base parameters. Decrease anti-HTN regimen due to low BP - if heart rates go up, may need digoxin. Antimicrobials Titrate rate-control meds - hold digitalis for elevated levels. Maintain diltia zem and metoprolol. DC apixaban - hold anticoagulation due to GI bleeding; resume with GI clearance. Continued room inspector Diuresis based on clinical parameters; trend BNP Trach now planned Potassium and free water suppl as needed Agree with consideration for DNR Jerome Meek MD Jan 08, 2020 21:42
--- NOTE | 2020-01-08 22:00 | NUR ---
NURSE NOTES: RASS -2 lightly sedated. Awakens to stimuli. BP:155/137. HR:130. O2sat:99. Continues to run Fentanyl @ 20mcgs/min. RT at bedside.
--- NOTE | 2020-01-08 22:57 | Psych Consult Progress Note ---
Psychiatry Progress Note Psychiatry Progress Note Subjective cont to be agitated and on bilat restraints. the pt was lethargic during my eval Medications Current Medications Medications (Trade) Dose Ordered Sig/Shiraz Route PRN Reason Start Time Stop Time Status Last Admin Dose Admin Acetaminophen (Tylenol) 650 mg Q4H PRN NG Mild Pain (Pain Scale 1-3) 12/22/19 16:00 01/11/20 22:14 01/06/20 12:42 Acetaminophen (Tylenol) 650 mg Q4H PRN NG Temp >100.5 12/22/19 16:00 01/11/20 22:14 01/08/20 09:25 Acetazolamide (Diamox) 500 mg TWICE A DAY NG 01/02/20 18:00 02/01/20 17:59 01/08/20 18:21 Albuterol Sulfate (Proventil MDI) 2 puff Q4H PRN INH Shortness of Breath 12/24/19 10:30 03/23/20 10:29 Bacitracin (Bacitracin) 2 applic EVERY 12 HOURS TOPIC 01/06/20 21:00 03/12/20 08:59 01/08/20 20:55 Chlorhexidine Gluconate (Jessie-Hex 2%) 1 applic DAILY@1999 TOPIC 12/24/19 20:00 03/23/20 19:59 01/08/20 20:54 Chlorpromazine (Thorazine) 50 mg Q6H PRN IM agitation 12/30/19 02:30 01/29/20 02:29 01/07/20 23:57 Clotrimazole (Lotrimin) 1 applic EVERY 12 HOURS TOPIC 01/05/20 09:00 03/12/20 08:59 01/08/20 20:55 Dextrose (Dextrose 50%) 25 ml Q30M PRN IV Hypoglycemia 12/23/19 10:45 03/22/20 10:44 Dextrose (Dextrose 50%) 50 ml Q30M PRN IV Hypoglycemia 12/23/19 10:45 03/22/20 10:44 Diltiazem HCl (Cardizem Tab) 60 mg Q8HR NG 01/06/20 16:15 02/05/20 16:14 01/08/20 05:32 Docusate Sodium (Colace) 100 mg BID NG 12/25/19 09:00 01/24/20 08:59 01/08/20 18:20 Fentanyl Citrate 250 ml @ 0 mls/hr Q24H IV 01/08/20 14:00 01/10/20 13:59 01/08/20 14:30 Furosemide (Lasix) 100 mg Q6HR IV 01/05/20 12:00 01/30/20 11:59 01/08/20 18:21 Insulin Aspart (NovoLOG) EVERY 6 HOURS SUBQ 01/05/20 06:00 03/22/20 11:29 01/07/20 18:04 Iron Sucrose 100 mg/Sodium Chloride 60 ml @ 240 mls/hr BEDTIME IV 01/05/20 21:00 01/09/20 21:14 01/08/20 20:54 Linezolid 300 ml @ 300 mls/hr Q12HR IVPB 01/06/20 21:00 01/13/20 20:59 01/08/20 20:54 Magnesium Hydroxide (Mom) 30 ml HSPRN PRN NG Constipation 12/22/19 15:15 01/21/20 15:14 01/02/20 22:20 Metoclopramide HCl (Reglan) 5 mg Q6H IVP 01/05/20 09:15 02/04/20 09:14 01/08/20 20:55 Metoprolol Tartrate (Lopressor) 50 mg Q12HR NG 12/22/19 21:00 03/18/20 20:59 01/08/20 20:55 Midazolam HCl (Versed 2mg/2ml vial) 2 mg Q1H PRN IVP For Anxiety 01/02/20 07:45 01/09/20 07:44 01/08/20 12:29 Nitroglycerin (Ntg) 0.4 mg Q5M PRN SL Prn Chest Pain 12/22/19 15:00 01/11/20 22:14 Ondansetron HCl (Zofran) 4 mg Q6H PRN IVP Nausea & Vomiting 12/22/19 15:15 01/11/20 15:14 Pantoprazole (Protonix) 40 mg EVERY 12 HOURS IVP 01/01/20 21:00 01/31/20 20:59 01/08/20 20:54 Piperacillin Sod/ Tazobactam Sod 3.375 gm/Sodium Chloride 110 ml @ 27.5 mls/hr EVERY 8 HOURS IVPB 01/08/20 22:00 01/13/20 21:59 Polyethylene Glycol (Miralax) 17 gm BEDTIME NG 12/22/19 21:00 01/18/20 20:59 01/08/20 20:55 Polymyxin B Sulfate 208582 units/Dextrose 550 ml @ 550 mls/hr EVERY 12 HOURS IV 01/06/20 11:00 01/13/20 10:59 01/08/20 20:54 Potassium Chloride (K-Dur) 40 meq EVERY 12 HOURS NG 01/05/20 11:45 04/04/20 11:14 01/08/20 20:56 Quetiapine Fumarate (SEROqueL) 100 mg EVERY 8 HOURS ORAL 01/04/20 22:00 02/16/20 21:59 01/08/20 14:32 Neurological/Psychiatric: Reports: anxiety, depressed, emotional problems Allergies: Coded Allergies: ERYTHROMYCIN BASE (Verified Allergy, Severe, 12/12/19) HALOPERIDOL (Verified Allergy, Unknown, 12/12/19) VANCOMYCIN (Unverified Adverse Reaction, Intermediate, Shortness of Breath, 12/12/19) Objective Data Height (Feet): 5 Height (Inches): 6.00 Weight (Pounds): 298 General Appearance: morbidly obese, other - sedated vent Additional Comments: confused. Mood is anxious. Affect is flat. Assessment/Plan [place] I: thorazin IM seroquel 50 q 8 hr midazolam bilat soft restraints Status: stable Status Narrative thorazin IM seroquel 50 q 8 hr midazolam bilat soft restraints Assessment/Plan: thorazin IM seroquel 50 q 8 hr midazolam bilat soft restraints Harris Ballesteros MD Jan 08, 2020 22:57
[2020-01-08] MEDS: Piperacillin/Tazobactam 3.375 GM in NS 110 ML IVPB SCH (22:58)
[2020-01-09] VITALS (49 sets, daily range): BP systolic 84–182; BP diastolic 45–142
--- NOTE | 2020-01-09 | NUR ---
NURSE NOTES: Patient became very restless and agitated. @ 2300 BP:191/130, HR:138, Fentanyl needed to be increased to 30mcgs/min to reach a RASS of -2 being lightly sedated. Patient is now more calm. BP120/57, HR:99. Will continue to monitor. Turned and repositioned. NPO status for afternoon scheduled trach placement.
--- NOTE | 2020-01-09 02:00 | NUR ---
NURSE NOTES: Patient is seen resting comfortably. Fentanyl continues to run at 30mcgs/min. RASS -2 lightly sedated.
[2020-01-09] MEDS: Metoclopramide 10mg/2ml Inj IVP SCH ×4 (03:24→20:10)
--- NOTE | 2020-01-09 04:00 | NUR ---
NURSE NOTES: Blood drawn peripherally for AM results. Fentanyl continues to run at 30mcgs/min via left upper arm PICC.
[2020-01-09 05:13] LABS: HEMATOCRIT 20.5 % (37.0-47.0); MEAN CORPUSCULAR VOLUME 89 FL (80-99); PLATELET COUNT 86 K/UL (150-450); RED BLOOD COUNT 2.32 M/UL (4.20-5.40); RED CELL DISTRIBUTION WIDTH 19.1 % (11.6-14.8)
[2020-01-09 05:16] LABS: INR 1.1 (0.9-1.1)
[2020-01-09] MEDS: Piperacillin/Tazobactam 3.375 GM in NS 110 ML IVPB SCH ×3 (05:31→21:38)
[2020-01-09] MEDS: dilTIAZem HCl 60mg tab NG SCH ×3 (05:31→21:38)
[2020-01-09 05:44] LABS: HEMOGLOBIN 6.7 G/DL (12.0-16.0)
[2020-01-09 05:48] LABS: ALBUMIN 1.5 G/DL (3.4-5.0); ALBUMIN/GLOBULIN RATIO 0.3 (1.0-2.7); BILIRUBIN,TOTAL 1.1 MG/DL (0.2-1.0); CREATININE 1.7 MG/DL (0.55-1.30); POTASSIUM 3.6 MMOL/L (3.5-5.1)
[2020-01-09] MEDS: NovoLOG Insulin Flexpen SUBQ SCH ×4 (06:00→23:36)
--- NOTE | 2020-01-09 06:00 | NUR ---
NURSE NOTES: Bed bath given, linens changed, suctioning and oral care provided. Right leg ulcer opened during repositioning due to patient being extremely restless. Wound covered with gauze and tegaderm for the time being until MD or wound care can be consulted. Fentanyl continues to run at 30mcgs/min w/ patient being lightly sedated RASS score of -2.
[2020-01-09 06:18] LABS: BILIRUBIN,DIRECT 0.6 MG/DL (0.0-0.3)
--- NOTE | 2020-01-09 06:40 | NUR ---
NURSE NOTES: Left urgent message for Dr. Dumont regarding this morning's hemoglobin levels of 6.7. Also informed him that patient is scheduled for trach placement later on today around 1300. Left call back number.
--- NOTE | 2020-01-09 07:17 | NUR ---
NURSE HAND-OFF REPORT: Latest Vital Signs: Temperature 100.8 , Pulse 108 , B/P 112 /69 , Respiratory Rate 20 , O2 SAT 98 , Mechanical Ventilator, O2 Flow Rate . Vital Sign Comment: Stable EKG Rhythm: Atrial Fibrillation Rhythm change?: N Notified?: N -MD Gaviota UNDERWOOD Response: Latest Abreu Fall Score: 75 Fall Risk: High Risk Safety Measures: Call light Within Reach, Bed Alarm Zone 1, Side Rails Side Rails x3, Bed position Low and Locked. Fall Precautions: Yellow Socks Yellow Gown Door Sign Patient Fall Education Report given to .
--- NOTE | 2020-01-09 07:30 | NUR ---
NURSE NOTES: Patient received from Merna COHEN. Patient stable at this time with no s/sx of pain or distress. AOx0 momentarily agitated but maintaining eyes closed at RR even and unlabored on ETT 7.5 24 lip line. Ventilator settings as ordered AC 18 600mL 40% P5. Cardiac sounds benign. Breath sounds diminished, rhoncus with RT > LT. Bowels sounds hypoactive. Feeding held at this time. Zero residual. NGT in place. BL radial and Pedal pulses weak. Generalized edema present with hands +2 and ankles +3. Lockett in place draining well to gravity. No BM at this time. LT UA PICC line dressing dry and intact. Patent with fluids TKO to and Fentayl infusing at 30mcg/hr. Restraints on with good ROM, sensation and circulation. Dependent edema present and previously noted unrelated to restraints. Side rails upx2, bed low and locked.
--- NOTE | 2020-01-09 08:00 | NUR ---
Patient has low grade fever. Need to transfuse. Will give Tylenol and place on cooling blanket to ensure temperature is controlled for transfusion and procedure later. Addendum: 01/09/20 at 1624 by RAIN FELIPE RN Consent for tracheostomy signed at 0805 with 2nd RN. Procedure medically necessry per MD Dr. Dumont, Dr. Carpio and Dr. Buckner.
[2020-01-09] MEDS: Polymyxin B Sulfate 500,000 UNITS in D5W 500ml 550 ML IV SCH ×2 (08:39→20:09)
[2020-01-09] MEDS: Docusate 100mg/10ml Liq NG SCH ×2 (08:39→17:44)
[2020-01-09] MEDS: Bacitracin Oint UD TOPIC SCH ×2 (08:40→20:11)
[2020-01-09] MEDS: Pantoprazole Inj IVP SCH ×2 (08:40→20:10)
[2020-01-09] MEDS: Metoprolol Tartrate 50mg tab NG SCH ×2 (08:40→20:10)
[2020-01-09] MEDS: Acetaminophen 650mg/20.3ml NG PRN (08:50)
--- NOTE | 2020-01-09 08:52 | General Progress Note ---
Subjective ROS Limited/Unobtainable: No Allergies: Coded Allergies: ERYTHROMYCIN BASE (Verified Allergy, Severe, 12/12/19) HALOPERIDOL (Verified Allergy, Unknown, 12/12/19) VANCOMYCIN (Unverified Adverse Reaction, Intermediate, Shortness of Breath, 12/12/19) Objective Last 24 Hour Vital Signs Date Time Temp Pulse Resp B/P (MAP) Pulse Ox O2 Delivery O2 Flow Rate FiO2 01/09/20 07:00 108 20 112/69 (83) 98 01/09/20 07:00 19 112/69 Mechanical Ventilator 40 01/09/20 06:15 117 19 110/59 (76) 98 01/09/20 06:00 141 24 182/142 (155) 98 01/09/20 06:00 19 110/59 Mechanical Ventilator 40 01/09/20 05:31 155 151/112 01/09/20 05:00 19 157/116 Mechanical Ventilator 40 01/09/20 05:00 100.8 139 23 157/116 (130) 98 01/09/20 04:00 101.4 110 21 120/95 (103) 98 01/09/20 04:00 Mechanical Ventilator 01/09/20 04:00 20 120/95 Mechanical Ventilator 40 01/09/20 04:00 40 01/09/20 03:43 107 01/09/20 03:00 98 18 126/64 (84) 98 01/09/20 03:00 18 128/64 Mechanical Ventilator 40 01/09/20 02:30 91 18 40 01/09/20 02:00 94 19 126/58 (80) 01/09/20 02:00 19 134/55 Mechanical Ventilator 40 01/09/20 01:00 19 128/58 Mechanical Ventilator 40 01/09/20 01:00 93 19 122/63 (82) 01/09/20 00:00 20 116/67 Mechanical Ventilator 40 01/09/20 00:00 Mechanical Ventilator 01/09/20 00:00 99.8 100 20 117/66 (83) 97 01/08/20 23:45 108 20 123/51 (75) 97 01/08/20 23:45 20 117/66 Mechanical Ventilator 40 01/08/20 23:30 19 123/51 Mechanical Ventilator 40 01/08/20 23:30 118 20 133/57 (82) 96 01/08/20 23:15 151 26 191/130 (150) 91 01/08/20 23:15 21 191/130 Mechanical Ventilator 40 01/08/20 23:01 137 01/08/20 23:00 23 157/82 Mechanical Ventilator 40 01/08/20 23:00 136 23 157/82 (107) 98 01/08/20 22:58 144 145/54 01/08/20 22:30 108 29 40 01/08/20 22:30 22 197/139 Mechanical Ventilator 40 01/08/20 22:00 129 28 155/137 (143) 100 01/08/20 21:30 25 134/110 Mechanical Ventilator 40 01/08/20 21:00 108 19 108/60 (76) 100 01/08/20 20:55 116 94/66 01/08/20 20:30 22 94/66 Mechanical Ventilator 40 01/08/20 20:00 Mechanical Ventilator 01/08/20 20:00 40 01/08/20 20:00 99.0 102 20 99/66 (77) 100 01/08/20 19:30 20 104/62 Mechanical Ventilator 40 01/08/20 19:17 104 01/08/20 19:11 104 19 40 01/08/20 19:00 107 17 97/49 (65) 100 01/08/20 18:30 18 99/48 Endotracheal Tube 40 01/08/20 18:00 99.8 98 18 99/54 (69) 01/08/20 17:30 18 98/56 Endotracheal Tube 40 01/08/20 17:15 99 18 100/52 (68) 01/08/20 17:00 94 18 102/51 (68) 01/08/20 16:45 97 18 99/47 (64) 01/08/20 16:30 18 109/48 Endotracheal Tube 40 01/08/20 16:30 97 18 109/48 (68) 99 01/08/20 16:15 18 84/59 Endotracheal Tube 40 01/08/20 16:15 98 18 84/59 (67) 98 01/08/20 16:00 18 87/50 Endotracheal Tube 40 01/08/20 16:00 40 01/08/20 16:00 89 01/08/20 16:00 Mechanical Ventilator 01/08/20 16:00 99.8 98 18 87/50 (62) 99 9/29/20 15:48 97 18 99/59 (72) 98 01/08/20 15:45 18 99/59 Endotracheal Tube 40 01/08/20 15:45 96 18 94/60 (71) 97 01/08/20 15:30 18 94/60 Endotracheal Tube 40 01/08/20 15:30 98 17 88/62 (71) 95 01/08/20 15:20 95 20 40 01/08/20 15:15 18 88/62 Endotracheal Tube 40 01/08/20 15:15 101 18 98/63 (75) 99 01/08/20 15:00 18 98/63 Endotracheal Tube 40 01/08/20 15:00 93 19 92/57 (69) 100 01/08/20 14:45 96 19 90/63 (72) 100 01/08/20 14:45 19 90/63 Endotracheal Tube 40 01/08/20 14:30 92 19 95/57 (70) 100 01/08/20 14:30 18 95/57 Endotracheal Tube 40 01/08/20 14:00 94 18 93/59 (70) 01/08/20 13:00 103 20 103/62 (76) 100 01/08/20 12:00 40 01/08/20 12:00 100.0 90 18 94/59 (71) 01/08/20 12:00 Mechanical Ventilator 01/08/20 12:00 96 01/08/20 11:16 40 01/08/20 11:15 100 01/08/20 11:15 107 23 40 01/08/20 11:00 106 23 116/61 (79) 95 01/08/20 10:00 101.2 117 24 118/70 (86) 95 01/08/20 10:00 101.2 01/08/20 09:37 98 26 40 01/08/20 09:30 40 01/08/20 09:00 115 18 113/65 (81) 100 Intake and Output 01/08/20 01/09/20 18:59 06:59 Intake Total 1194.00 ml 783.75 ml Output Total 925 ml 985 ml Balance 269.00 ml -201.25 ml Free Water 60 ml IV Total 969.00 ml 453.75 ml Tube Feeding 225 ml 270 ml Output Urine Total 925 ml 985 ml # Bowel Movements 2 Laboratory Tests 01/08/20 10:58: Arterial Blood pH 7.240*L, Arterial Blood Partial Pressure CO2 70.3*H, Arterial Blood Partial Pressure O2 79.4, Arterial Blood HCO3 29.5H, Arterial Blood Oxygen Saturation 91.7L, Arterial Blood Base Excess 1.4, [place] Test Positive 01/08/20 11:33: POC Whole Blood Glucose 147H 01/08/20 15:15: Sodium Level 143, Potassium Level 4.2, Chloride Level 106, Carbon Dioxide Level 27, Anion Gap 10, Blood Urea Nitrogen 49H, Creatinine 1.8H, Estimat Glomerular Filtration Rate 28.0, Glucose Level 105, Calcium Level 8.0L, Total Bilirubin 1.2H, Direct Bilirubin 0.7H, Aspartate Amino Transf (AST/SGOT) 18, Alanine Aminotransferase (ALT/SGPT) 13, Alkaline Phosphatase 91, C-Reactive Protein, Quantitative 24.0H, Total Protein 5.4L, Albumin 1.7L, Globulin 3.7, Albumin/Globulin Ratio 0.5L 01/09/20 04:00: Sodium Level 141, Potassium Level 3.6, Chloride Level 105, Carbon Dioxide Level 30, Anion Gap 7, Blood Urea Nitrogen 45H, Creatinine 1.7H, Estimat Glomerular Filtration Rate 30.0, Glucose Level 99, Calcium Level 8.0L, Total Bilirubin 1.1H , Direct Bilirubin 0.6H, Aspartate Amino Transf (AST/SGOT) 13L, Alanine Aminotransferase (ALT/SGPT) 11L, Alkaline Phosphatase 93, Total Protein 6.0L, Albumin 1.5L, Globulin 4.5, Albumin/Globulin Ratio 0.3L, White Blood Count 3.0L, Red Blood Count 2.32L, Hemoglobin 6.7*L, Hematocrit 20.5L, Mean Corpuscular Volume 89, Mean Corpuscular Hemoglobin 29.1, Mean Corpuscular Hemoglobin Concent 32.8, Red Cell Distribution Width 19.1H, Platelet Count 86L, Mean Platelet Volume 7.2, Neutrophils (%) (Auto) , Lymphocytes (%) (Auto) , Monocytes (%) (Auto) , Eosinophils (%) (Auto) , Basophils (%) (Auto) , Differential Total Cells Counted 100, Neutrophils % (Manual) 63, Lymphocytes % (Manual) 29, Monocytes % (Manual) 6, Eosinophils % (Manual) 1, Basophils % (Manual) 0, Band Neutrophils 1, Platelet Estimate DecreasedL, Platelet Morphology Normal, Anisocytosis 2+, Prothrombin Time 12.4H, Prothromb Time International Ratio 1.1 Height (Feet): 5 Height (Inches): 6.00 Weight (Pounds): 298 General Appearance: no apparent distress EENT: normal ENT inspection Neck: supple Cardiovascular: normal rate Respiratory/Chest: decreased breath sounds Abdomen: normal bowel sounds, non tender, soft Extremities: non-tender Assessment/Plan Problem List: (1) CKD (chronic kidney disease) stage 3, GFR 30-59 ml/min ICD Codes: N18.3 - Chronic kidney disease, stage 3 (moderate) SNOMED: 855944158 (2) COPD (chronic obstructive pulmonary disease) ICD Codes: J44.9 - Chronic obstructive pulmonary disease, unspecified SNOMED: 65783755 (3) Smoker ICD Codes: F17.200 - Nicotine dependence, unspecified, uncomplicated SNOMED: 93298432 (4) GERD (gastroesophageal reflux disease) ICD Codes: K21.9 - Gastro-esophageal reflux disease without esophagitis SNOMED: 699054759 (5) Atrial fibrillation with RVR ICD Codes: I48.91 - Unspecified atrial fibrillation SNOMED: 113291037440886 Status: stable Assessment/Plan: ngtf pepcid fu H&H monitor labs bowel regimen fu cardiology recs icu care ppi cbc in am pending Trach plan PEG for Mervin Victoria MD Jan 09, 2020 08:52
--- NOTE | 2020-01-09 10:15 | Pulmonolgy Critical Care Note ---
Critical Care - Asmt/Plan Assessment/Plan: ASSESSMENT acute hypoxemic hypercapnic resp failure, requiring intubation 12/22 failure to wean COVID 19 PNA sepsis fungemia UTI with E coli ESBL UTI VRE possible aspiration PNA Moderate R pleural effusion COPD Bronchospasm Atrial fibrillation with rapid ventricular response Congestive heart failure Acute renal failure on CKD Severe anemia Probable GI bleeding Thrombocytopenia Status post ground fall Tobacco dependency Morbid obesity probably GARY Homeless R knee edema and hematoma, likely sprain /strain post fall PLAN OF CARE ICU intubated 12/22 MDI Albuterol in line with vent fup with CXR and ABG ABG this am noted started on weaning trials with high PS settings as ordered, goal MV 10 not able to wean trach planned for today 01/08 at 1300 afterwards weaning from vent CXR 01/03 no sign change CXR 01/05 noted, CXR 01/[address] effusion hold on thoracentesis for now CXR 01/07 Apparent worsening aeration of the right lung will fup with CXR in am now back on Fentanyl gtt monitor hemodynamic status clsoely s/p steroids IV ( started 12/23) continue for total of 10 days till 01/02 s/p Remdesivir (started 12/24 ), dc 12/30 initial diagnoses with COVID 19 at [facility] 11/29, was not hypoxic and not intubated, was not treated with Remdesivivr , only received empiric abx for PNA sedation with Fentanyl gtt and versed prn - DVT prophylaxis with Lovenox prior Venous Duplex BLE -NGT COVID 19 by PCR 12/22 positive isolation IL 6 52 , initial CRP 15.6, ferritin 769, fup with inflammatory markers CRP 12/29 - down to 11.8 ; ferritin down to 503 CRP 01/03 -10.7 on diuresis with Lasix , monitor volumes closely creat remains stable rate control- per cardio recs: monitor volumes trend pro B ECHO with pEF no evidence of WMA GI prophylaxis with PPI s/p Venofer x 2 s/p blood transfusion 12/25 monitor HH with goal to keep Hgb >7 now on IV Venofer x5 days ( 01/04- transfuse 1 u PRBC today 01/08 ( going for surgery, Hgb 6.7) GI procedure when stable monitor PLT counts asp precautions NGTF PEG planned for 01/09 renal US no hydro, BL nonobstructive stones s/p IV hydration, now resumed again per nephro monitor renal parameters, lytes , e/lyte management as per nephro recs creat stable UCX 12/11 + E coli ESBL, BCX 12/16 12 + yeast, fup with yeast ID, ? source BCX 12/17 NGTD BCX 12/22 and 12/24 NGTD UCX 12/16 VRE SCX 12/19 MRSA, ACB MDR now on Polymyxin , Zyvox and Zosyn -as per ID recs; cooling blanket prn fevers prior X ray R knee given fall 12/15 , large hematoma, swelling-no fx or dislocation ice R knee and elevate CT head no acute IC pathology fall precautions prior declined Nicotine patch discussion on weight loss if receptive - not at this time; anxious and wants to go home pain management anxiolytic prn SW consult for placement evaluated by bioethics -> DNR/DNI status appropriate given current critical condition , grave prognosis and multiple comorbidities, would recommend DNR/DNI status as well DNR/DNI status case discussed and evaluated by supervising physician ivy mccarty for a consult! Critical Care - Objective Last 24 Hour Vital Signs Date Time Temp Pulse Resp B/P (MAP) Pulse Ox O2 Delivery O2 Flow Rate FiO2 01/09/20 07:02 104 19 40 01/09/20 07:00 108 20 112/69 (83) 98 01/09/20 07:00 19 112/69 Mechanical Ventilator 40 01/09/20 06:15 117 19 110/59 (76) 98 01/09/20 06:00 141 24 182/142 (155) 98 01/09/20 06:00 19 110/59 Mechanical Ventilator 40 01/09/20 05:31 155 151/112 01/09/20 05:00 19 157/116 Mechanical Ventilator 40 01/09/20 05:00 100.8 139 23 157/116 (130) 98 01/09/20 04:00 101.4 110 21 120/95 (103) 98 01/09/20 04:00 Mechanical Ventilator 01/09/20 04:00 20 120/95 Mechanical Ventilator 40 01/09/20 04:00 40 01/09/20 03:43 107 01/09/20 03:00 98 18 126/64 (84) 98 01/09/20 03:00 18 128/64 Mechanical Ventilator 40 01/09/20 02:30 91 18 40 01/09/20 02:00 94 19 126/58 (80) 01/09/20 02:00 19 134/55 Mechanical Ventilator 40 01/09/20 01:00 19 128/58 Mechanical Ventilator 40 01/09/20 01:00 93 19 122/63 (82) 01/09/20 00:00 20 116/67 Mechanical Ventilator 40 01/09/20 00:00 Mechanical Ventilator 01/09/20 00:00 99.8 100 20 117/66 (83) 97 01/08/20 23:45 108 20 123/51 (75) 97 01/08/20 23:45 20 117/66 Mechanical Ventilator 40 01/08/20 23:30 19 123/51 Mechanical Ventilator 40 01/08/20 23:30 118 20 133/57 (82) 96 01/08/20 23:15 151 26 191/130 (150) 91 01/08/20 23:15 21 191/130 Mechanical Ventilator 40 01/08/20 23:01 137 01/08/20 23:00 23 157/82 Mechanical Ventilator 40 01/08/20 23:00 136 23 157/82 (107) 98 01/08/20 22:58 144 145/54 01/08/20 22:30 108 29 40 01/08/20 22:30 22 197/139 Mechanical Ventilator 40 01/08/20 22:00 129 28 155/137 (143) 100 01/08/20 21:30 25 134/110 Mechanical Ventilator 40 01/08/20 21:00 108 19 108/60 (76) 100 01/08/20 20:55 116 94/66 01/08/20 20:30 22 94/66 Mechanical Ventilator 40 01/08/20 20:00 Mechanical Ventilator 01/08/20 20:00 40 01/08/20 20:00 99.0 102 20 99/66 (77) 100 01/08/20 19:30 20 104/62 Mechanical Ventilator 40 01/08/20 19:17 104 01/08/20 19:11 104 19 40 01/08/20 19:00 107 17 97/49 (65) 100 01/08/20 18:30 18 99/48 Endotracheal Tube 40 01/08/20 18:00 99.8 98 18 99/54 (69) 01/08/20 17:30 18 98/56 Endotracheal Tube 40 01/08/20 17:15 99 18 100/52 (68) 01/08/20 17:00 94 18 102/51 (68) 01/08/20 16:45 97 18 99/47 (64) 01/08/20 16:30 18 109/48 Endotracheal Tube 40 01/08/20 16:30 97 18 109/48 (68) 99 01/08/20 16:15 18 84/59 Endotracheal Tube 40 01/08/20 16:15 98 18 84/59 (67) 98 01/08/20 16:00 18 87/50 Endotracheal Tube 40 01/08/20 16:00 40 01/08/20 16:00 89 01/08/20 16:00 Mechanical Ventilator 01/08/20 16:00 99.8 98 18 87/50 (62) 99 01/08/20 15:48 97 18 99/59 (72) 98 01/08/20 15:45 18 99/59 Endotracheal Tube 40 01/08/20 15:45 96 18 94/60 (71) 97 01/08/20 15:30 18 94/60 Endotracheal Tube 40 01/08/20 15:30 98 17 88/62 (71) 95 01/08/20 15:20 95 20 40 01/08/20 15:15 18 88/62 Endotracheal Tube 40 01/08/20 15:15 101 18 98/63 (75) 99 01/08/20 15:00 18 98/63 Endotracheal Tube 40 01/08/20 15:00 93 19 92/57 (69) 100 01/08/20 14:45 96 19 90/63 (72) 100 01/08/20 14:45 19 90/63 Endotracheal Tube 40 01/08/20 14:30 92 19 95/57 (70) 100 01/08/20 14:30 18 95/57 Endotracheal Tube 40 01/08/20 14:00 94 18 93/59 (70) 01/08/20 13:00 103 20 103/62 (76) 100 01/08/20 12:00 40 01/08/20 12:00 100.0 90 18 94/59 (71) 01/08/20 12:00 Mechanical Ventilator 01/08/20 12:00 96 01/08/20 11:16 40 01/08/20 11:15 100 01/08/20 11:15 107 23 40 01/08/20 11:00 106 23 116/61 (29) 95 Objective: CONDITION: critical General Appearance: morbidly obese , sedated, generalized anasarca ; on vent AC 600-18-40% PEEP 5 Lines, tubes and drains: LUE PICC new , intact HEENT: normocephalic, atraumatic, anicteric, NGT in , OP with ET Neck: non-tender Respiratory/Chest: chest wall non-tender, no accessory muscle use, few isolated scattered rhonchi Cardiovascular/Chest: irregularly irregular - A fib , tachy , distant heart sounds, Abdomen: normal bowel sounds, non tender , obese, soft : [place] Extremities: no calf tenderness, moderate edema - +3 BLE, R knee with large hematoma, edema, Skin Exam: warm/dry, multiple tattoos Neurologic: sedated Musculoskeletal: normal muscle bulk Micro: Microbiology Date/Time Source Procedure Growth Status 01/08/20 18:25 Indwelling Cath Urine Culture - Preliminary NO GROWTH Resulted 01/08/20 18:25 Sputum Induced Gram Stain - Final Resulted 01/08/20 18:25 Sputum Culture - Preliminary Gram Negative Bacillus 1 Resulted 01/06/20 18:05 Sputum Expectorated Gram Stain - Final Resulted 01/06/20 18:05 Sputum Culture - Preliminary Acinetobacter Baumannii Complx Resulted Accucheck: 107 Critical Care - Subjective ROS Limited/Unobtainable: Yes Interval Events: unable to wean from vent despite multiple attempts tarch planned for today 1300 CXR 01/07 noted febrile, tachycardic leukopenic Hgb down to 6.7 IV Access: PICC - LUE intact EKG Rhythm: Atrial Fibrillation FI02: 40 Vent Support Breath Rate: 18 Vent Support Mode: AC Vent Tidal Volume: 600 Sputum Amount: Small - small amount, meléndez color, thick consistency PEEP: 5.0 PIP: 38 Drips: Fentanyl gtt 30 mcg/hr Tube Feeding Amount: 45 I&O: Intake and Output 01/08/20 01/09/20 18:59 06:59 Intake Total 1194.00 ml 783.75 ml Output Total 925 ml 985 ml Balance 269.00 ml -201.25 ml Free Water 60 ml IV Total 969.00 ml 453.75 ml Tube Feeding 225 ml 270 ml Output Urine Total 925 ml 985 ml # Bowel Movements 2 CXR: CXR 01/07 -The cardiomediastinal silhouette is unchanged in appearance. Redemonstration of diffuse interstitial opacities. Of apparent worsening of aeration of the right lung. Unchanged small right pleural effusion. No pneumothorax. Unchanged left PICC, endotracheal tube, and enteric tube. ET-Tube: 7.5 ET Position: 24 Luz Bowen TOBACCO CUTTER Jan 09, 2020 10:15
--- NOTE | 2020-01-09 10:45 | NUR ---
NURSE NOTES: Blood transfusion started at 1030. Now 15 min later with VSS and no adverse reaction.
--- NOTE | 2020-01-09 11:28 | General Progress Note ---
Subjective ROS Limited/Unobtainable: Yes Allergies: Coded Allergies: ERYTHROMYCIN BASE (Verified Allergy, Severe, 12/12/19) HALOPERIDOL (Verified Allergy, Unknown, 12/12/19) VANCOMYCIN (Unverified Adverse Reaction, Intermediate, Shortness of Breath, 12/12/19) Objective Last 24 Hour Vital Signs Date Time Temp Pulse Resp B/P (MAP) Pulse Ox O2 Delivery O2 Flow Rate FiO2 01/09/20 11:24 104 22 40 01/09/20 11:15 120 23 116/76 (89) 80 01/09/20 11:00 100.3 101 18 102/56 (71) 100 01/09/20 10:00 100.0 01/09/20 10:00 100.0 108 18 108/53 (71) 01/09/20 09:00 104 17 98/54 (69) 01/09/20 08:00 99.8 100 20 108/65 (79) 01/09/20 08:00 40 01/09/20 08:00 Mechanical Ventilator 01/09/20 07:02 104 19 40 01/09/20 07:00 108 20 112/69 (83) 98 01/09/20 07:00 19 112/69 Mechanical Ventilator 40 01/09/20 06:15 117 19 110/59 (76) 98 01/09/20 06:00 141 24 182/142 (155) 98 01/09/20 06:00 19 110/59 Mechanical Ventilator 40 01/09/20 05:31 155 151/112 01/09/20 05:00 19 157/116 Mechanical Ventilator 40 01/09/20 05:00 100.8 139 23 157/116 (130) 98 01/09/20 04:00 101.4 110 21 120/95 (103) 98 01/09/20 04:00 Mechanical Ventilator 01/09/20 04:00 20 120/95 Mechanical Ventilator 40 01/09/20 04:00 40 01/09/20 03:43 107 01/09/20 03:00 98 18 126/64 (84) 98 01/09/20 03:00 18 128/64 Mechanical Ventilator 40 01/09/20 02:30 91 18 40 01/09/20 02:00 94 19 126/58 (80) 01/09/20 02:00 19 134/55 Mechanical Ventilator 40 01/09/20 01:00 19 128/58 Mechanical Ventilator 40 01/09/20 01:00 93 19 122/63 (82) 01/09/20 00:00 20 116/67 Mechanical Ventilator 40 01/09/20 00:00 Mechanical Ventilator 01/09/20 00:00 99.8 100 20 117/66 (83) 97 01/08/20 23:45 108 20 123/51 (75) 97 01/08/20 23:45 20 117/66 Mechanical Ventilator 40 01/08/20 23:30 19 123/51 Mechanical Ventilator 40 01/08/20 23:30 118 20 133/57 (82) 96 01/08/20 23:15 151 26 191/130 (150) 91 01/08/20 23:15 21 191/130 Mechanical Ventilator 40 01/08/20 23:01 137 01/08/20 23:00 23 157/82 Mechanical Ventilator 40 01/08/20 23:00 136 23 157/82 (107) 98 01/08/20 22:58 144 145/54 01/08/20 22:30 108 29 40 01/08/20 22:30 22 197/139 Mechanical Ventilator 40 01/08/20 22:00 129 28 155/137 (143) 100 01/08/20 21:30 25 134/110 Mechanical Ventilator 40 01/08/20 21:00 108 19 108/60 (76) 100 01/08/20 20:55 116 94/66 01/08/20 20:30 22 94/66 Mechanical Ventilator 40 01/08/20 20:00 Mechanical Ventilator 01/08/20 20:00 40 01/08/20 20:00 99.0 102 20 99/66 (77) 100 01/08/20 19:30 20 104/62 Mechanical Ventilator 40 01/08/20 19:17 104 01/08/20 19:11 104 19 40 01/08/20 19:00 107 17 97/49 (65) 100 01/08/20 18:30 18 99/48 Endotracheal Tube 40 01/08/20 18:00 99.8 98 18 99/54 (69) 01/08/20 17:30 18 98/56 Endotracheal Tube 40 01/08/20 17:15 99 18 100/52 (68) 01/08/20 17:00 94 18 102/51 (68) 01/08/20 16:45 97 18 99/47 (64) 01/08/20 16:30 18 109/48 Endotracheal Tube 40 01/08/20 16:30 97 18 109/48 (68) 99 01/08/20 16:15 18 84/59 Endotracheal Tube 40 01/08/20 16:15 98 18 84/59 (67) 98 01/08/20 16:00 18 87/50 Endotracheal Tube 40 01/08/20 16:00 40 01/08/20 16:00 89 01/08/20 16:00 Mechanical Ventilator 01/08/20 16:00 99.8 98 18 87/50 (62) 99 01/08/20 15:48 97 18 99/59 (72) 98 01/08/20 15:45 18 99/59 Endotracheal Tube 40 01/08/20 15:45 96 18 94/60 (71) 97 01/08/20 15:30 18 94/60 Endotracheal Tube 40 01/08/20 15:30 98 17 88/62 (71) 95 01/08/20 15:20 95 20 40 01/08/20 15:15 18 88/62 Endotracheal Tube 40 01/08/20 15:15 101 18 98/63 (75) 99 01/08/20 15:00 18 98/63 Endotracheal Tube 40 01/08/20 15:00 93 19 92/57 (69) 100 01/08/20 14:45 96 19 90/63 (72) 100 01/08/20 14:45 19 90/63 Endotracheal Tube 40 01/08/20 14:30 92 19 95/57 (70) 100 01/08/20 14:30 18 95/57 Endotracheal Tube 40 01/08/20 14:00 94 18 93/59 (70) 01/08/20 13:00 103 20 103/62 (76) 100 01/08/20 12:00 40 01/08/20 12:00 100.0 90 18 94/59 (71) 01/08/20 12:00 Mechanical Ventilator 01/08/20 12:00 96 Intake and Output 01/08/20 01/09/20 18:59 06:59 Intake Total 1194.00 ml 783.75 ml Output Total 925 ml 985 ml Balance 269.00 ml -201.25 ml Free Water 60 ml IV Total 969.00 ml 453.75 ml Tube Feeding 225 ml 270 ml Output Urine Total 925 ml 985 ml # Bowel Movements 2 Laboratory Tests 01/08/20 11:33: POC Whole Blood Glucose 147H 01/08/20 15:15: Sodium Level 143, Potassium Level 4.2, Chloride Level 106, Carbon Dioxide Level 27, Anion Gap 10, Blood Urea Nitrogen 49H, Creatinine 1.8H, Estimat Glomerular Filtration Rate 28.0, Glucose Level 105, Calcium Level 8.0L, Total Bilirubin 1.2H, Direct Bilirubin 0.7H, Aspartate Amino Transf (AST/SGOT) 18, Alanine Aminotransferase (ALT/SGPT) 13, Alkaline Phosphatase 91, C-Reactive Protein, Quantitative 24.0H, Total Protein 5.4L, Albumin 1.7L, Globulin 3.7, Albumin/Globulin Ratio 0.5L 01/09/20 04:00: Sodium Level 141, Potassium Level 3.6, Chloride Level 105, Carbon Dioxide Level 30, Anion Gap 7, Blood Urea Nitrogen 45H, Creatinine 1.7H, Estimat Glomerular Filtration Rate 30.0, Glucose Level 99, Calcium Level 8.0L, Total Bilirubin 1.1H , Direct Bilirubin 0.6H, Aspartate Amino Transf (AST/SGOT) 13L, Alanine Aminotransferase (ALT/SGPT) 11L, Alkaline Phosphatase 93, Total Protein 6.0L, Albumin 1.5L, Globulin 4.5, Albumin/Globulin Ratio 0.3L, White Blood Count 3.0L, Red Blood Count 2.32L, Hemoglobin 6.7*L, Hematocrit 20.5L, Mean Corpuscular Volume 89, Mean Corpuscular Hemoglobin 29.1, Mean Corpuscular Hemoglobin Concent 32.8, Red Cell Distribution Width 19.1H, Platelet Count 86L, Mean Platelet Volume 7.2, Neutrophils (%) (Auto) , Lymphocytes (%) (Auto) , Monocytes (%) (Auto) , Eosinophils (%) (Auto) , Basophils (%) (Auto) , Differential Total Cells Counted 100, Neutrophils % (Manual) 63, Lymphocytes % (Manual) 29, Monocytes % (Manual) 6, Eosinophils % (Manual) 1, Basophils % (Manual) 0, Band Neutrophils 1, Platelet Estimate DecreasedL, Platelet Morphology Normal, Anisocytosis 2+, Prothrombin Time 12.4H, Prothromb Time International Ratio 1.1 01/09/20 08:50: Arterial Blood pH 7.441, Arterial Blood Partial Pressure CO2 46.2H, Arterial Blood Partial Pressure O2 113.0H, Arterial Blood HCO3 30.7H, Arterial Blood Oxygen Saturation 97.6, Arterial Blood Base Excess 6H, Eugene Test Positive Height (Feet): 5 Height (Inches): 6.00 Weight (Pounds): 298 General Appearance: other - sedated on vent Neck: normal inspection Cardiovascular: regularly irregular Respiratory/Chest: rhonchi - bilaterally Abdomen: soft Edema: moderate edema Neurologic: unresponsive Assessment/Plan Problem List: (1) Schizophrenia ICD Codes: F20.9 - Schizophrenia, unspecified SNOMED: 64409040 (2) GERD (gastroesophageal reflux disease) ICD Codes: K21.9 - Gastro-esophageal reflux disease without esophagitis SNOMED: 716403905 (3) Lymphadema (4) Smoker ICD Codes: F17.200 - Nicotine dependence, unspecified, uncomplicated SNOMED: 57086578 (5) Atrial fibrillation with rapid ventricular response ICD Codes: I48.91 - Unspecified atrial fibrillation SNOMED: 630821964387679 (6) CKD (chronic kidney disease) stage 3, GFR 30-59 ml/min ICD Codes: N18.3 - Chronic kidney disease, stage 3 (moderate) SNOMED: 263539356 (7) NATALIE (acute kidney injury) ICD Codes: N17.9 - Acute kidney failure, unspecified SNOMED: 1047933, 19319900 (8) COPD (chronic obstructive pulmonary disease) ICD Codes: J44.9 - Chronic obstructive pulmonary disease, unspecified SNOMED: 58355833 (9) UGI bleed ICD Codes: K92.2 - Gastrointestinal hemorrhage, unspecified SNOMED: 93966407 (10) Dysphagia ICD Codes: R13.10 - Dysphagia, unspecified SNOMED: 34433287, 849873828 (11) UTI (urinary tract infection) ICD Codes: N39.0 - Urinary tract infection, site not specified SNOMED: 05028098 (12) ESBL (extended spectrum beta-lactamase) producing bacteria infection ICD Codes: A49.9 - Bacterial infection, unspecified; Z16.12 - Extended spectrum beta lactamase (ESBL) resistance SNOMED: 320534584 (13) Dehydration ICD Codes: E86.0 - Dehydration SNOMED: 59538593 (14) CHF exacerbation ICD Codes: I50.9 - Heart failure, unspecified SNOMED: 574709250, 70209452417051 (15) Acute respiratory failure ICD Codes: J96.00 - Acute respiratory failure, unspecified whether with hypoxia or hypercapnia SNOMED: 69458697 (16) COVID-19 ICD Codes: U07.1 - COVID-19 SNOMED: 321280342 (17) Pneumonia ICD Codes: J18.9 - Pneumonia, unspecified organism SNOMED: 217180796 Qualifiers: (18) Hematoma of lower leg ICD Codes: S80.10XA - Contusion of unspecified lower leg, initial encounter SNOMED: 875943983 (19) CKD (chronic kidney disease) stage 3, GFR 30-59 ml/min ICD Codes: N18.3 - Chronic kidney disease, stage 3 (moderate) SNOMED: 652576623 Status: stable Assessment/Plan: resp distress, icu, now intubated, natalie on ckd,,now stable, I/O, ,+hematoma RLE stop eliquis ancd asa, lovenox now iv protonix, rx esbl and + vre uti,g+ cocci linezolid , remains high risk, d/w psych, ID, cardiology, chf and on lasix ,covid neg prior now +, grave prognosis, fungemia on micafungin likely will be unable to wean for a long time, agitated when tried to wean and had apnea 01/01, cpap trial 01/02 +25 had distress/tachycardia , ,all lab and orders reviewed , no active bleeding , low Hb to transfuse 01/08 preop, increase lasix for chf , reculture, d/w dr curran needs trach, unable to sign, he thinks that she might be able to wean gradually after trach placed, febrile again and infiltrates, trach scheduled 01/08 icu time 35 min Benjamin Dumont MD Jan 09, 2020 11:28
--- NOTE | 2020-01-09 11:31 | NUR ---
NURSE NOTES: Patient agitated. Fentanyl titrated up from 30mcg to now 60mcg. Patient now at goal of RASS -2. Addendum: 01/09/20 at 1135 by RAIN FELIPE RN Patient not at goal. RASS is -1.
[2020-01-09] MEDS ORDERED: Lidocaine 1% 10mg/ml/Epi 0.005mg/ml 30ml vial INJ ONE (12:16)
[2020-01-09] MEDS ORDERED: Rocuronium Bromide 50mg/5ml Inj IV ONE (12:34)
--- NOTE | 2020-01-09 12:44 | NUR ---
CASE MANAGEMENT:REVIEW 01/09/20 SI: SEPSIS . ATRIAL FIBRILLATION W/ RVR . COVID PNA ~ INTUBATED THROMBOCYTOPENIA 101.4 110 20 120/95 98% ON VENT SUPPORT W/40% FIO2 WBC-3.0 H/H-6.7/20.5 PLT-86 BUN+45 CR+1.7 T.LIAM 1.1 D.LIAM 0.6 ALB 1.5 ABG: pH 7.511 pO2 116.6 HCO3 32.0 IS: IN SURGERY FOR TRACHEOSTOMY AND EGD W/ PEG IV FENTANYL QD IV ZOSYN TID IV ZYVOX BID IV POLYMYXIN BID IV VENOFER 4/5 BAGS IV LASIX Q6HR BLOOD TRANSFUSION X2 : ICU STATUS PLAN: FAILURE TO WEAN CASE MANAGEMENT:REVIEW 01/08/20 SI: SEPSIS . ATRIAL FIBRILLATION W/ RVR . COVID PNA ~ INTUBATED 101.5 107 24 106/90 99% ON VENT SUPPORT W/40% FIO2 WBC-2.9 H/H-7.1/22.2 PLT-91 BUN+58 CR+1.7 FERR 871 ABG: pH 7.511 pO2 116.6 HCO3 32.0 IS: IV FENTANYL QD IV ZOSYN TID IV ZYVOX BID IV POLYMYXIN BID IV VENOFER 4/5 BAGS IV LASIX Q6HR : ICU STATUS PLAN: FAILURE TO WEAN PLAN FOR TRACH AND PEG IN AM MONITOR FEVERS
--- NOTE | 2020-01-09 12:50 | Surgery Progress Note ---
Surgery Progress Note Subjective Additional Comments trach today Objective Last 24 Hour Vital Signs Date Time Temp Pulse Resp B/P (MAP) Pulse Ox O2 Delivery O2 Flow Rate FiO2 01/09/20 12:00 106 01/09/20 12:00 Mechanical Ventilator 01/09/20 12:00 40 01/09/20 11:24 104 22 40 01/09/20 11:15 120 23 116/76 (89) 80 01/09/20 11:00 100.3 101 18 102/56 (71) 100 01/09/20 11:00 18 102/56 Endotracheal Tube 40 01/09/20 10:00 18 108/53 Endotracheal Tube 40 01/09/20 10:00 100.0 01/09/20 10:00 100.0 108 18 108/53 (71) 01/09/20 09:00 18 98/54 Endotracheal Tube 40 01/09/20 09:00 104 17 98/54 (69) 01/09/20 08:00 99.8 100 20 108/65 (79) 01/09/20 08:00 40 01/09/20 08:00 19 108/65 Endotracheal Tube 40 01/09/20 08:00 Mechanical Ventilator 01/09/20 08:00 102 01/09/20 07:02 104 19 40 01/09/20 07:00 108 20 112/69 (83) 98 01/09/20 07:00 19 112/69 Mechanical Ventilator 40 01/09/20 06:15 117 19 110/59 (76) 98 01/09/20 06:00 141 24 182/142 (155) 98 01/09/20 06:00 19 110/59 Mechanical Ventilator 40 01/09/20 05:31 155 151/112 01/09/20 05:00 19 157/116 Mechanical Ventilator 40 01/09/20 05:00 100.8 139 23 157/116 (130) 98 01/09/20 04:00 101.4 110 21 120/95 (103) 98 01/09/20 04:00 Mechanical Ventilator 01/09/20 04:00 20 120/95 Mechanical Ventilator 40 01/09/20 04:00 40 01/09/20 03:43 107 01/09/20 03:00 98 18 126/64 (84) 98 01/09/20 03:00 18 128/64 Mechanical Ventilator 40 01/09/20 02:30 91 18 40 01/09/20 02:00 94 19 126/58 (80) 01/09/20 02:00 19 134/55 Mechanical Ventilator 40 01/09/20 01:00 19 128/58 Mechanical Ventilator 40 01/09/20 01:00 93 19 122/63 (82) 01/09/20 00:00 20 116/67 Mechanical Ventilator 40 01/09/20 00:00 Mechanical Ventilator 01/09/20 00:00 99.8 100 20 117/66 (83) 97 01/08/20 23:45 108 20 123/51 (75) 97 01/08/20 23:45 20 117/66 Mechanical Ventilator 40 01/08/20 23:30 19 123/51 Mechanical Ventilator 40 01/08/20 23:30 118 20 133/57 (82) 96 01/08/20 23:15 151 26 191/130 (150) 91 01/08/20 23:15 21 191/130 Mechanical Ventilator 40 01/08/20 23:01 137 01/08/20 23:00 23 157/82 Mechanical Ventilator 40 01/08/20 23:00 136 23 157/82 (107) 98 01/08/20 22:58 144 145/54 01/08/20 22:30 108 29 40 01/08/20 22:30 22 197/139 Mechanical Ventilator 40 01/08/20 22:00 129 28 155/137 (143) 100 01/08/20 21:30 25 134/110 Mechanical Ventilator 40 01/08/20 21:00 108 19 108/60 (76) 100 01/08/20 20:55 116 94/66 01/08/20 20:30 22 94/66 Mechanical Ventilator 40 01/08/20 20:00 Mechanical Ventilator 01/08/20 20:00 40 01/08/20 20:00 99.0 102 20 99/66 (77) 100 01/08/20 19:30 20 104/62 Mechanical Ventilator 40 01/08/20 19:17 104 01/08/20 19:11 104 19 40 01/08/20 19:00 107 17 97/49 (65) 100 01/08/20 18:30 18 99/48 Endotracheal Tube 40 01/08/20 18:00 99.8 98 18 99/54 (69) 01/08/20 17:30 18 98/56 Endotracheal Tube 40 01/08/20 17:15 99 18 100/52 (68) 01/08/20 17:00 94 18 102/51 (68) 01/08/20 16:45 97 18 99/47 (64) 01/08/20 16:30 18 109/48 Endotracheal Tube 40 01/08/20 16:30 97 18 109/48 (68) 99 01/08/20 16:15 18 84/59 Endotracheal Tube 40 01/08/20 16:15 98 18 84/59 (67) 98 01/08/20 16:00 18 87/50 Endotracheal Tube 40 01/08/20 16:00 40 01/08/20 16:00 89 01/08/20 16:00 Mechanical Ventilator 01/08/20 16:00 99.8 98 18 87/50 (62) 99 01/08/20 15:48 97 18 99/59 (72) 98 01/08/20 15:45 18 99/59 Endotracheal Tube 40 01/08/20 15:45 96 18 94/60 (71) 97 01/08/20 15:30 18 94/60 Endotracheal Tube 40 01/08/20 15:30 98 17 88/62 (71) 95 01/08/20 15:20 95 20 40 01/08/20 15:15 18 88/62 Endotracheal Tube 40 01/08/20 15:15 101 18 98/63 (75) 99 01/08/20 15:00 18 98/63 Endotracheal Tube 40 01/08/20 15:00 93 19 92/57 (69) 100 01/08/20 14:45 96 19 90/63 (72) 100 01/08/20 14:45 19 90/63 Endotracheal Tube 40 01/08/20 14:30 92 19 95/57 (70) 100 01/08/20 14:30 18 95/57 Endotracheal Tube 40 01/08/20 14:00 94 18 93/59 (70) 01/08/20 13:00 103 20 103/62 (76) 100 I&O Intake and Output 01/08/20 01/09/20 18:59 06:59 Intake Total 1194.00 ml 783.75 ml Output Total 925 ml 985 ml Balance 269.00 ml -201.25 ml Free Water 60 ml IV Total 969.00 ml 453.75 ml Tube Feeding 225 ml 270 ml Output Urine Total 925 ml 985 ml # Bowel Movements 2 Dressing: other Wound: other Cardiovascular: RSR Respiratory: decreased breath sounds Abdomen: soft, non-tender, present bowel sounds Extremities: edema, cyanosis, no tenderness Laboratory Tests Test 01/08/20 15:15 01/09/20 04:00 01/09/20 05:36 01/09/20 08:50 Sodium Level 143 MMOL/L (136-145) 141 MMOL/L (136-145) Potassium Level 4.2 MMOL/L (3.5-5.1) 3.6 MMOL/L (3.5-5.1) Chloride Level 106 MMOL/L (98-107) 105 MMOL/L (98-107) Carbon Dioxide Level 27 MMOL/L (21-32) 30 MMOL/L (21-32) Anion Gap 10 mmol/L (5-15) 7 mmol/L (5-15) Blood Urea Nitrogen 49 mg/dL (7-18) H 45 mg/dL (7-18) H Creatinine 1.8 MG/DL (0.55-1.30) H 1.7 MG/DL (0.55-1.30) H Estimat Glomerular Filtration Rate 28.0 mL/min (>60) 30.0 mL/min (>60) Glucose Level 105 MG/DL (74-106) 99 MG/DL (74-106) Calcium Level 8.0 MG/DL (8.5-10.1) L 8.0 MG/DL (8.5-10.1) L Total Bilirubin 1.2 MG/DL (0.2-1.0) H 1.1 MG/DL (0.2-1.0) H Direct Bilirubin 0.7 MG/DL (0.0-0.3) H 0.6 MG/DL (0.0-0.3) H Aspartate Amino Transf (AST/SGOT) 18 U/L (15-37) 13 U/L (15-37) L Alanine Aminotransferase (ALT/SGPT) 13 U/L (12-78) 11 U/L (12-78) L Alkaline Phosphatase 91 U/L (46-116) 93 U/L (46-116) C-Reactive Protein, Quantitative 24.0 mg/dL (0.00-0.90) H Total Protein 5.4 G/DL (6.4-8.2) L 6.0 G/DL (6.4-8.2) L Albumin 1.7 G/DL (3.4-5.0) L 1.5 G/DL (3.4-5.0) L Globulin 3.7 g/dL 4.5 g/dL Albumin/Globulin Ratio 0.5 (1.0-2.7) L 0.3 (1.0-2.7) L White Blood Count 3.0 K/UL (4.8-10.8) L Red Blood Count 2.32 M/UL (4.20-5.40) L Hemoglobin 6.7 G/DL (12.0-16.0) *L Hematocrit 20.5 % (37.0-47.0) L Mean Corpuscular Volume 89 FL (80-99) Mean Corpuscular Hemoglobin 29.1 PG (27.0-31.0) Mean Corpuscular Hemoglobin Concent 32.8 G/DL (32.0-36.0) Red Cell Distribution Width 19.1 % (11.6-14.8) H Platelet Count 86 K/UL (150-450) L Mean Platelet Volume 7.2 FL (6.5-10.1) Neutrophils (%) (Auto) % (45.0-75.0) Lymphocytes (%) (Auto) % (20.0-45.0) Monocytes (%) (Auto) % (1.0-10.0) Eosinophils (%) (Auto) % (0.0-3.0) Basophils (%) (Auto) % (0.0-2.0) Differential Total Cells Counted 100 Neutrophils % (Manual) 63 % (45-75) Lymphocytes % (Manual) 29 % (20-45) Monocytes % (Manual) 6 % (1-10) Eosinophils % (Manual) 1 % (0-3) Basophils % (Manual) 0 % (0-2) Band Neutrophils 1 % (0-8) Platelet Estimate Decreased L Platelet Morphology Normal Anisocytosis 2+ Prothrombin Time 12.4 SEC (9.30-11.50) H Prothromb Time International Ratio 1.1 (0.9-1.1) POC Whole Blood Glucose Pending Arterial Blood pH 7.441 (7.350-7.450) Arterial Blood Partial Pressure CO2 46.2 mmHg (35.0-45.0) H Arterial Blood Partial Pressure O2 113.0 mmHg (75.0-100.0) H Arterial Blood HCO3 30.7 mmol/L (22.0-26.0) H Arterial Blood Oxygen Saturation 97.6 % (95-100) Arterial Blood Base Excess 6 (-2-2) H Eugene Test Positive Plan Problems: (1) Urinary tract infection (2) CHF exacerbation (3) History of schizophrenia (4) Atrial fibrillation with RVR (5) Schizophrenia (6) GERD (gastroesophageal reflux disease) (7) Smoker (8) Atrial fibrillation with rapid ventricular response (9) Lymphadema (10) COPD (chronic obstructive pulmonary disease) (11) CKD (chronic kidney disease) stage 3, GFR 30-59 ml/min (12) NATALIE (acute kidney injury) (13) Dehydration (14) Dysphagia (15) UTI (urinary tract infection) (16) UGI bleed (17) ESBL (extended spectrum beta-lactamase) producing bacteria infection (18) Constipation (19) Lactic acidosis (20) Tinea cruris (21) Onychomycosis (22) Emesis (23) Essential hypertension (24) Anemia (25) Cough (26) Depression (27) Depression (28) Edema (29) Rash (30) Opiate dependence (31) Opiate dependence (32) Opiate dependence (33) Opiate dependence (34) Pyelonephritis (35) Sepsis (36) UTI (urinary tract infection) (37) Nausea and vomiting (38) Abdominal pain Assessment & Plan: [age]-year-old female obese white abdominal pain deep tissue injury identified limited mobility on HD. KUB noted tube in place continue meds feeds Does not seem obstructed We will monitor lines noted. plan change resume tube feeds labs okay FINDINGS: Lower thorax: Obscuration of the left costophrenic angle suggestive of pleural effusion. Intraperitoneal space: No free air. Gastrointestinal tract: Unremarkable. No dilation. Bones/joints: Unremarkable. Tubes, lines and devices: The nasogastric tube has the tip at the mid inferior aspect of the gastric body. Other findings: Nonspecific gas pattern. Single frontal view of the abdomen demonstrates tip of the enteric tube and distal side-port projecting over the stomach. Gas is identified within the nondistended large bowel. There is a paucity of small bowel gas seen. Partially visualized left pleural effusion. No other significant interval change. (39) Chest pain (40) Chest pain (41) Nausea (42) Obesity (43) Chronic ulcer of leg (44) Chronic ulcer of leg (45) Chronic ulcer of leg (46) ACS (acute coronary syndrome) (47) Acute chest pain (48) Encounter for dressing change or suture removal (49) Left leg cellulitis (50) Acute encephalopathy (51) Encounter for wound re-check (52) Intractable nausea and vomiting (53) Infection due to ESBL-producing Escherichia coli (54) Chronic venous stasis (55) Change of dressing (56) Change of dressing (57) Change of dressing (58) Change of dressing (59) Change of dressing (60) Change of dressing (61) Change of dressing (62) Change of dressing (63) ESBL urine (64) Lymphadema (65) Lymphedema (66) Lymphedema (67) Lymphedema (68) Lymphedema (69) Lymphedema (70) Lymphedema (71) Lymphedema (72) Lymphedema (73) Open wound of foot (74) Open wound of foot (75) cellulitis (76) chronic lymphedema (77) chronic lymphedema (78) chronic lymphedema (79) hypertension uncontrolled (80) hypertension uncontrolled (81) Intertrigo (82) Sciatica (83) Cellulitis (84) Schizophrenia (85) Chronic bronchitis (86) HTN (hypertension) (87) Venous stasis ulcers (88) Medication refill (89) Chest pain, atypical (90) BMI 45.0-49.9, adult (91) Lymphedema of both lower extremities (92) hypertension uncontrolled (93) hypertension uncontrolled (94) hypertension uncontrolled (95) tenia corpus (96) Deep tissue injury Assessment & Plan: Morbidly obese pt whom presented on admission with Pressure injuries, Edemae bilat lower extremities eschar to dorsal aspects of metatarsals. Pt is very demanding of staff and can be resistive to repositioning. DTPI noted to L Sacrum(L)5.5cm x (W)2.5cm. Base of Pressure Injury is Maroon and indurated with surrounding non-blanchable erythema DTPI R Sacrum(L)5.5cm x (W)2.3cm. Base of Pressure Injury is maroon with purpuric center that is fluctuant. Pt complained of tenderness when minimally palpated. Bilat lower extremities are edematous . Dry eschar noted to nail matrix and tip of L 1st metatarsal, Dorsal L 2nd metatarsal, R 2nd and R 4th metatarsals. Both heels are boggy with non-Blanchable erythema. blisters forming on Right lower extremity anterior tibia. not infected cellulitis / edema on b/l le stable cont abx Tx.Plan: Apply Moisture Barrier Paste to Sacrum R and L gluteal cheeks. Cover with Optifoam drsgs. Change every 3 days and prn. Apply Betadine to dry eschar metatarsals both feet Daily. Apply Cavilon Skin Barrier to both heels. Cover each heel with Optifoam drsgs. Change every 7days and prn. Reposition at least every 2hours or as tolerated. Off-load heels with pillow. right leg hematoma stable critically ill and edema on right leg has compromised dermis over the hematoma. will likely need debridement once improved (97) COVID-19 Assessment & Plan: ++ on vent weaning abx as per ID (98) Respiratory failure Assessment & Plan: not able to wean safely will plan for trach case discussed with medical team, pulm, icu. recommended to trach given medical condition. medically indicated and recommended. (99) Pneumonia Juan Manuel Buckner Jan 09, 2020 12:50
--- NOTE | 2020-01-09 13:01 | NUR ---
NURSE NOTES: Patient taken down for surgery. Fentanyl stopped per anesthesiologist instruction. During transport patient very agitated. HR elevated to 170-180's. Unable to get accurate O2 reading due to patient removal of pulse oxymeter. Anesthesiolist and MD Dr. Buckner notified and per MD patient okay to proceed with procedure.
--- NOTE | 2020-01-09 13:11 | NUR ---
*-* INSURANCE *-* UPDATED CLINICALS AND REVIEWS HAVE BEEN FAXED TO: [facility] PH: NEL FARAH [phone] CLINICALS: [phone]
--- NOTE | 2020-01-09 13:26 | Brief Operative Note ---
Immediate Post Operative Note Operative Note Pre-op Diagnosis: respiratory insufficiency covid + Procedure: tracheostomy Post-op Diagnosis: same as pre-op Surgeon: steve Anesthesiologist: amanda Anesthesia: general, local Specimen: none Complications: none Condition: stable Fluids: see Estimated Blood Loss: minimal Drains: none Implant(s) used?: No Juan Manuel Buckner Jan 09, 2020 13:26
[2020-01-09] MEDS ORDERED: NS Irrig 1000ml ONE (14:00)
[2020-01-09] MEDS ORDERED: Sterile Water Irrig 1000ml IRRIG ONE (14:00)
--- NOTE | 2020-01-09 14:00 | NUR ---
NURSE NOTES: Patient received from OR. Patient tracheostomy site dry and intact. Now getting restless. Will start fentanyl drip. VSS but HR is 140-150's. May be related to restlessness. Will give scheduled cardizem.
--- NOTE | 2020-01-09 14:00 | Immediate Post-Op Evaluation ---
Immediate Post-Op Evalulation Immediate Post-Op Evalulation Procedure: Tracheostomy Date of Evaluation: Jan 09, 2020 Time of Evaluation: 13:59 IV Fluids: 100 Blood Pressure Systolic: 114 Blood Pressure Diastolic: 60 Pulse Rate: 130 Respiratory Rate: 14 O2 Sat by Pulse Oximetry: 99 Nausea: No Vomiting: No Patient Status: reacts, patent, ventilated - AC 40% 16 600 5 Hydration Status: adequate Drug: none Barbara Davis CRNA Jan 09, 2020 14:00
[2020-01-09] MEDS: fentaNYL 2500mcg/NS 250ml 250 ML IV SCH (14:08)
--- NOTE | 2020-01-09 15:00 | 48 Hour Post Anesthesia Eval ---
Post Anesthesia Evaluation Procedure: Tracheostomy Date of Evaluation: Jan 09, 2020 Time of Evaluation: 15:00 Blood Pressure Systolic: 105 0: 53 Pulse Rate: 101 Respiratory Rate: 12 O2 Sat by Pulse Oximetry: 100 Airway: patent Nausea: No Vomiting: No Hydration Status: adequate Cardiopulmonary Status: stable Mental Status/LOC: patient returned to baseline Follow-up Care/Observations: na Post-Anesthesia Complications: none Follow-up care needed: N/A Barbara Davis CRNA Jan 09, 2020 15:00
--- NOTE | 2020-01-09 15:30 | Operative Note - Dictated ---
DATE OF OPERATION: 01/09/2020 PREOPERATIVE DIAGNOSES: 1. Respiratory insufficiency requiring prolonged ventilatory support. 2. COVID positive. POSTOPERATIVE DIAGNOSES: 1. Respiratory insufficiency requiring prolonged ventilatory support. 2. COVID positive. OPERATION PERFORMED: Tracheostomy. ATTENDING SURGEON: Juan Manuel Buckner MD. CLINICAL RESEARCHER: None. ANESTHESIOLOGIST: Barbara Davis CRNA. ANESTHESIA: General GETA plus local. ESTIMATED BLOOD LOSS: Minimal. IV FLUIDS: Please see anesthesia records. COMPLICATIONS: None. DRAINS: None. COUNTS: Sponge and needle count correct x2. WOUND CLASSIFICATION: Class 3. IMPLANTS: An 8-Uzbek Shiley tracheostomy. INDICATIONS FOR PROCEDURE: This is a 69-year-old female with multiple medical comorbidities, currently in intensive care unit, for sometime in [facility], unable to wean from ventilator support safely. The patient is unable to make decision, had no power of litigation attorney associate, next of kin, and is not planned for terminal extubation with a chance of recovery. Medical teams, intensive care unit team, pulmonology team have attempted weaning the patient from ventilator support , but unsuccessful; therefore, tracheostomy was indicated and recommended. After evaluation, medical necessity was identified given the patient's condition and care plan and therefore was scheduled for 01/09/2020. OPERATIVE NOTE: The patient was taken to the operating room and placed on the operating table supine position with bilateral arms down. Shoulder roll placed. All preoperative COVID evaluation and intra and postoperative COVID evaluation and care plan was initiated with drapes, gowns, mask, and personal protective equipment. All staff were protected. All staff were aware and all care was taken throughout the procedure. The patient was already intubated when entering the operating room. A shoulder roll was placed. Neck was hyperextended and the neck was prepped, and draped in standard surgical fashion. Anatomical landmarks identified. Local anesthetic infiltrated. Skin incision made two fingerbreadths above the sternal notch and carried down to the subcutaneous tissue, platysma to the median raphae. Median raphe was divided and the strap muscles were mobilized laterally. The trachea was identified and the first and second and third tracheal rings were dissected out. A window was made between the first and second tracheal rings and the ET tube was identified. ET tube was withdrawn by the anesthesiologist and once above the level of the cords, a 8-Uzbek Shiley tracheostomy was inserted under direct visualization without complication. Shiley tracheostomy balloon was insufflated and the patient was ventilated through the tracheostomy with good end-tidal CO2 volumes. Deep suctioning was performed. The skin incision laterally was reapproximated using 2-0 Monocryl sutures followed by 2-0 nylon suture for the tracheostomy to the skin. Trach ties were applied. Dressings applied. The patient tolerated the procedure well and was taken directly to the intensive care unit in stable condition. Juan Manuel Buckner M.D. DR: Divya JOB#: [id number] CC:
--- NOTE | 2020-01-09 16:00 | NUR ---
NURSE NOTES: RASS now -2. Will VSS. Patient stable. No s/sx of pain or distress.
--- NOTE | 2020-01-09 18:00 | NUR ---
NURSE NOTES: Patient very agitated at this time. HR 150's. Unable to fully clean. Only wiped down, gown changed and repositioned. Fentanyl titrated up. RASS score +3 at this time.
--- NOTE | 2020-01-09 19:19 | NUR ---
NURSE HAND-OFF REPORT: Latest Vital Signs: Temperature 98.9 , Pulse 138 , B/P 135 /60 , Respiratory Rate 21 , O2 SAT 100 , Endotracheal Tube, O2 Flow Rate . Vital Sign Comment: HR elevated. May be due to pain based on pt assessment and RASS score from +3 to now 0. Endorsed to monitor. EKG Rhythm: Atrial Fibrillation Rhythm change?: N Notified?: N -MD Gaviota UNDERWOOD Response: Latest Abreu Fall Score: 75 Fall Risk: High Risk Safety Measures: Call light Within Reach, Bed Alarm Zone 1, Side Rails Side Rails x3, Bed position Low and Locked. Fall Precautions: Yellow Socks Yellow Gown Door Sign Patient Fall Education Report given to Bre COHEN. Plan of care endorsed. PEG for tomorrow. NPO at midnight.
--- NOTE | 2020-01-09 20:00 | NUR ---
NURSE NOTES: Patient is newly trach'd. Shiley 8 to vent setting of AC:18, TV:600, FiO2:40%, PEEP:5, O2sat:100%. Patient is on Fentanyl at 130mcg/min. RASS -2 lightly sedated and easily awakens to stimuli. Left nare NGT running Vital AF @ 45ml/hr. NGT patent and flushing well. Lockett catheter in place and draining. Right leg ulcer dressing dry and intact and awaiting wound consult. MAPPING PILOT restraints in place for safety and prevent from pulling on lines and tubing; ROM and skin assessed. cooling blanket is on, patient is afebrile. Isolation precautions noted. Will continue plan of care.
[2020-01-09] MEDS: Iron Sucrose 100 MG in NS 55 ML IV SCH (20:09)
[2020-01-09] MEDS: Dyna-Hex 2% Top Sol 2oz TOPIC SCH (20:09)
[2020-01-09] MEDS: Miralax 17gm pkt NG SCH (20:10)
--- NOTE | 2020-01-09 22:00 | NUR ---
NURSE NOTES: Patient remains lightly sedated RASS -2 easily awakens to stimuli. BP:114/54, HR:101, O2sat:100%.
--- NOTE | 2020-01-09 23:20 | Psych Consult Progress Note ---
Psychiatry Progress Note Psychiatry Progress Note Subjective cont to be agitated and on bilat restraints. the pt was lethargic during my eval Medications Current Medications Medications (Trade) Dose Ordered Sig/Shiraz Route PRN Reason Start Time Stop Time Status Last Admin Dose Admin Acetaminophen (Tylenol) 650 mg Q4H PRN NG Mild Pain (Pain Scale 1-3) 12/22/19 16:00 01/11/20 22:14 01/06/20 12:42 Acetaminophen (Tylenol) 650 mg Q4H PRN NG Temp >100.5 12/22/19 16:00 01/11/20 22:14 01/09/20 08:50 Acetazolamide (Diamox) 500 mg TWICE A DAY NG 01/02/20 18:00 02/01/20 17:59 01/09/20 17:44 Albuterol Sulfate (Proventil MDI) 2 puff Q4H PRN INH Shortness of Breath 12/24/19 10:30 03/23/20 10:29 Bacitracin (Bacitracin) 2 applic EVERY 12 HOURS TOPIC 01/06/20 21:00 03/12/20 08:59 01/09/20 20:11 Chlorhexidine Gluconate (Jessie-Hex 2%) 1 applic DAILY@1999 TOPIC 12/24/19 20:00 03/23/20 19:59 01/09/20 20:09 Chlorpromazine (Thorazine) 50 mg Q6H PRN IM agitation 12/30/19 02:30 01/29/20 02:29 01/07/20 23:57 Clotrimazole (Lotrimin) 1 applic EVERY 12 HOURS TOPIC 01/05/20 09:00 03/12/20 08:59 01/09/20 20:11 Dextrose (Dextrose 50%) 25 ml Q30M PRN IV Hypoglycemia 12/23/19 10:45 03/22/20 10:44 Dextrose (Dextrose 50%) 50 ml Q30M PRN IV Hypoglycemia 12/23/19 10:45 03/22/20 10:44 Diltiazem HCl (Cardizem Tab) 60 mg Q8HR NG 01/06/20 16:15 02/05/20 16:14 01/09/20 21:38 Docusate Sodium (Colace) 100 mg BID NG 12/25/19 09:00 01/24/20 08:59 01/09/20 17:44 Fentanyl Citrate 250 ml @ 0 mls/hr Q24H IV 01/08/20 14:00 01/10/20 13:59 01/09/20 14:08 Furosemide (Lasix) 100 mg Q6HR IV 01/05/20 12:00 01/30/20 11:59 01/09/20 17:44 Insulin Aspart (NovoLOG) EVERY 6 HOURS SUBQ 01/05/20 06:00 03/22/20 11:29 01/08/20 23:30 Linezolid 300 ml @ 300 mls/hr Q12HR IVPB 01/06/20 21:00 01/13/20 20:59 01/09/20 21:38 Magnesium Hydroxide (Mom) 30 ml HSPRN PRN NG Constipation 12/22/19 15:15 01/21/20 15:14 01/02/20 22:20 Metoclopramide HCl (Reglan) 5 mg Q6H IVP 01/05/20 09:15 02/04/20 09:14 01/09/20 20:10 Metoprolol Tartrate (Lopressor) 50 mg Q12HR NG 12/22/19 21:00 03/18/20 20:59 01/09/20 20:10 Nitroglycerin (Ntg) 0.4 mg Q5M PRN SL Prn Chest Pain 12/22/19 15:00 01/11/20 22:14 Ondansetron HCl (Zofran) 4 mg Q6H PRN IVP Nausea & Vomiting 12/22/19 15:15 01/11/20 15:14 Pantoprazole (Protonix) 40 mg EVERY 12 HOURS IVP 01/01/20 21:00 01/31/20 20:59 01/09/20 20:10 Piperacillin Sod/ Tazobactam Sod 3.375 gm/Sodium Chloride 110 ml @ 27.5 mls/hr EVERY 8 HOURS IVPB 01/08/20 22:00 01/13/20 21:59 01/09/20 21:38 Polyethylene Glycol (Miralax) 17 gm BEDTIME NG 12/22/19 21:00 01/18/20 20:59 01/09/20 20:10 Polymyxin B Sulfate [id number] units/Dextrose 550 ml @ 550 mls/hr EVERY 12 HOURS IV 01/06/20 11:00 01/13/20 10:59 01/09/20 20:09 Potassium Chloride (K-Dur) 40 meq EVERY 12 HOURS NG 01/05/20 11:45 04/04/20 11:14 01/09/20 20:11 Quetiapine Fumarate (SEROqueL) 100 mg EVERY 8 HOURS ORAL 01/04/20 22:00 02/16/20 21:59 01/09/20 21:38 Neurological/Psychiatric: Reports: anxiety, depressed, emotional problems Allergies: Coded Allergies: ERYTHROMYCIN BASE (Verified Allergy, Severe, 12/12/19) HALOPERIDOL (Verified Allergy, Unknown, 12/12/19) VANCOMYCIN (Unverified Adverse Reaction, Intermediate, Shortness of Sarah ath, 12/12/19) Objective Data Height (Feet): 5 Height (Inches): 6.00 Weight (Pounds): 344 General Appearance: other - sedated on vent Additional Comments: confused. Mood is anxious. Affect is flat. Assessment/Plan Jena I: thorazin IM seroquel 50 q 8 hr midazolam bilat soft restraints Status: stable Status Narrative thorazin IM seroquel 50 q 8 hr midazolam bilat soft restraints Assessment/Plan: thorazin IM seroquel 50 q 8 hr midazolam bilat soft restraints Harris Ballesteros MD Jan 09, 2020 23:19
[2020-01-10] VITALS (38 sets, daily range): BP systolic 76–162; BP diastolic 45–143
--- NOTE | 2020-01-10 | NUR ---
NURSE NOTES: No changes in patient condition. BP:103/55 HR:103. O2sat:100%. Temp 97.9F rectally; on cooling blanket. NPO status now for EGD and possible PEG in the AM
--- NOTE | 2020-01-10 02:03 | Cardiology Progress Note ---
Subjective DATE OF SERVICE: Jan 09, 2020 Doing poorly - remains in ICU in critical condition with guarded prognosis. Remains on vent support - failed weaning trials; trach now planned. BP range remaining low normal range. Remains COVID19 positive. Monitor: AFIb Persisting respiratory acidosis req'd intubation and mech ventilation - remains far from weaning. Had coffee ground material in NGTube and hematoma on right leg; anti-coagulation discont'd Venous Duplex: negative for DVT Renal fxn and free water deficit correcting CXR (01/07/20) decreased bilateral infiltrates and eff'n - unchanged. Objective Last 24 Hour Vital Signs Date Time Temp Pulse Resp B/P (MAP) Pulse Ox O2 Delivery O2 Flow Rate FiO2 01/10/20 00:00 Mechanical Ventilator 01/10/20 00:00 97.9 100 18 103/55 (71) 100 01/09/20 23:08 100 01/09/20 23:00 96 19 109/56 (73) 99 01/09/20 22:30 104 21 40 01/09/20 22:00 106 17 114/54 (74) 100 01/09/20 21:38 111 107/60 01/09/20 21:00 118 18 122/54 (76) 99 01/09/20 20:45 19 122/68 Mechanical Ventilator 40 01/09/20 20:45 135 23 122/68 (86) 98 01/09/20 20:30 19 132/66 Mechanical Ventilator 40 01/09/20 20:30 134 19 132/66 (88) 99 01/09/20 20:24 124 14 107/71 (83) 99 01/09/20 20:15 120 13 84/72 (76) 100 01/09/20 20:15 18 84/72 Mechanical Ventilator 40 01/09/20 20:10 123 121/59 01/09/20 20:00 40 01/09/20 20:00 11 121/59 Mechanical Ventilator 40 01/09/20 20:00 Mechanical Ventilator 01/09/20 20:00 98.5 122 9 121/59 (79) 100 01/09/20 19:35 112 01/09/20 19:20 145 26 40 01/09/20 19:00 139 21 135/60 (85) 100 01/09/20 19:00 21 135/60 Endotracheal Tube 40 01/09/20 18:45 21 135/68 Endotracheal Tube 40 01/09/20 18:30 138 24 109/49 (69) 100 01/09/20 18:30 21 109/49 Endotracheal Tube 40 01/09/20 18:15 21 112/72 Endotracheal Tube 40 01/09/20 18:15 130 21 112/72 (85) 75 01/09/20 18:00 144 23 92/80 (84) 77 01/09/20 18:00 22 92/80 Endotracheal Tube 40 01/09/20 17:45 131 24 121/74 (90) 01/09/20 17:30 124 23 130/72 (91) 94 01/09/20 17:15 123 21 110/81 (91) 96 01/09/20 17:08 22 106/75 Endotracheal Tube 40 01/09/20 17:00 109 18 106/75 (85) 99 01/09/20 16:45 121 19 102/69 (80) 98 01/09/20 16:35 123 23 92/77 (82) 98 01/09/20 16:15 124 24 131/75 (93) 96 01/09/20 16:08 23 105/81 Endotracheal Tube 40 01/09/20 16:00 124 01/09/20 16:00 98.9 118 24 105/81 (89) 98 01/09/20 16:00 Trach Collar 01/09/20 16:00 40 01/09/20 15:53 24 98/45 Endotracheal Tube 40 01/09/20 15:45 120 25 98/45 (62) 99 01/09/20 15:38 22 125/81 Endotracheal Tube 40 01/09/20 15:30 117 24 125/81 (96) 98 01/09/20 15:23 20 129/74 Endotracheal Tube 40 01/09/20 15:15 118 21 129/74 (92) 99 01/09/20 15:08 23 152/115 Endotracheal Tube 40 01/09/20 15:05 116 18 40 01/09/20 15:00 126 21 152/115 (127) 96 01/09/20 15:00 101 12 100 01/09/20 14:53 22 142/108 Endotracheal Tube 40 01/09/20 14:45 133 22 142/108 (119) 96 01/09/20 14:38 22 132/70 Endotracheal Tube 40 01/09/20 14:30 141 22 132/70 (90) 98 01/09/20 14:23 22 128/57 Endotracheal Tube 40 01/09/20 14:15 141 128/57 (80) 97 01/09/20 14:08 18 101/53 Endotracheal Tube 40 01/09/20 14:06 142 101/53 01/09/20 14:00 144 101/53 (69) 96 01/09/20 14:00 130 14 99 01/09/20 13:44 99.8 122/68 (86) 01/09/20 13:30 40 01/09/20 12:30 18 94/57 Endotracheal Tube 40 01/09/20 12:30 98 18 96/56 (69) 01/09/20 12:15 99 18 94/57 (69) 01/09/20 12:00 106 01/09/20 12:00 101 18 97/52 (67) 01/09/20 12:00 Mechanical Ventilator 01/09/20 12:00 18 97/52 Endotracheal Tube 40 01/09/20 12:00 40 01/09/20 11:45 18 109/60 Endotracheal Tube 40 01/09/20 11:45 102 18 109/60 (76) 01/09/20 11:30 108 18 110/56 (74) 01/09/20 11:30 18 110/56 Endotracheal Tube 40 01/09/20 11:24 104 22 40 01/09/20 11:15 18 115/76 Endotracheal Tube 40 01/09/20 11:15 120 23 116/76 (89) 80 01/09/20 11:00 100.3 101 18 102/56 (71) 100 01/09/20 11:00 18 102/56 Endotracheal Tube 40 01/09/20 10:00 18 108/53 Endotracheal Tube 40 01/09/20 10:00 100.0 01/09/20 10:00 100.0 108 18 108/53 (71) 01/09/20 09:00 18 98/54 Endotracheal Tube 40 01/09/20 09:00 104 17 98/54 (69) 01/09/20 08:00 99.8 100 20 108/65 (79) 01/09/20 08:00 40 01/09/20 08:00 19 108/65 Endotracheal Tube 40 01/09/20 08:00 Mechanical Ventilator 01/09/20 08:00 102 01/09/20 07:02 104 19 40 01/09/20 07:00 108 20 112/69 (83) 98 01/09/20 07:00 19 112/69 Mechanical Ventilator 40 01/09/20 06:15 117 19 110/59 (76) 98 01/09/20 06:00 141 24 182/142 (155) 98 01/09/20 06:00 19 110/59 Mechanical Ventilator 40 01/09/20 05:31 155 151/112 01/09/20 05:00 19 157/116 Mechanical Ventilator 40 01/09/20 05:00 100.8 139 23 157/116 (130) 98 01/09/20 04:00 101.4 110 21 120/95 (103) 98 01/09/20 04:00 Mechanical Ventilator 01/09/20 04:00 20 120/95 Mechanical Ventilator 40 01/09/20 04:00 40 01/09/20 03:43 107 01/09/20 03:00 98 18 126/64 (84) 98 01/09/20 03:00 18 128/64 Mechanical Ventilator 40 01/09/20 02:30 91 18 40 ROS: unchanged from 12/12/19 HEENT: Orally intubated, Mechanically Ventilated, Thin secretions ET Tube, other - NGtube RHYTHM: NSR, ST LUNGS: diminished breath sounds, right-sided rhonchi CARDIAC: normal S1 and S2, irregularly irregular ABDOMEN: other - obese EXTREMITIES: moderate edema - mostly non pitting, other - hematoma right leg Laboratory Tests Test 01/09/20 04:00 01/09/20 05:36 01/09/20 08:50 01/09/20 23:35 White Blood Count 3.0 K/UL (4.8-10.8) L Red Blood Count 2.32 M/UL (4.20-5.40) L Hemoglobin 6.7 G/DL (12.0-16.0) *L Hematocrit 20.5 % (37.0-47.0) L Mean Corpuscular Volume 89 FL (80-99) Mean Corpuscular Hemoglobin 29.1 PG (27.0-31.0) Mean Corpuscular Hemoglobin Concent 32.8 G/DL (32.0-36.0) Red Cell Distribution Width 19.1 % (11.6-14.8) H Platelet Count 86 K/UL (150-450) L Mean Platelet Volume 7.2 FL (6.5-10.1) Neutrophils (%) (Auto) % (45.0-75.0) Lymphocytes (%) (Auto) % (20.0-45.0) Monocytes (%) (Auto) % (1.0-10.0) Eosinophils (%) (Auto) % (0.0-3.0) Basophils (%) (Auto) % (0.0-2.0) Differential Total Cells Counted 100 Neutrophils % (Manual) 63 % (45-75) Lymphocytes % (Manual) 29 % (20-45) Monocytes % (Manual) 6 % (1-10) Eosinophils % (Manual) 1 % (0-3) Basophils % (Manual) 0 % (0-2) Band Neutrophils 1 % (0-8) Platelet Estimate Decreased L Platelet Morphology Normal Anisocytosis 2+ Prothrombin Time 12.4 SEC (9.30-11.50) H Prothromb Time International Ratio 1.1 (0.9-1.1) Sodium Level 141 MMOL/L (136-145) Potassium Level 3.6 MMOL/L (3.5-5.1) Chloride Level 105 MMOL/L (98-107) Carbon Dioxide Level 30 MMOL/L (21-32) Anion Gap 7 mmol/L (5-15) Blood Urea Nitrogen 45 mg/dL (7-18) H Creatinine 1.7 MG/DL (0.55-1.30) H Estimat Glomerular Filtration Rate 30.0 mL/min (>60) Glucose Level 99 MG/DL (74-106) Calcium Level 8.0 MG/DL (8.5-10.1) L Total Bilirubin 1.1 MG/DL (0.2-1.0) H Direct Bilirubin 0.6 MG/DL (0.0-0.3) H Aspartate Amino Transf (AST/SGOT) 13 U/L (15-37) L Alanine Aminotransferase (ALT/SGPT) 11 U/L (12-78) L Alkaline Phosphatase 93 U/L (46-116) Total Protein 6.0 G/DL (6.4-8.2) L Albumin 1.5 G/DL (3.4-5.0) L Globulin 4.5 g/dL Albumin/Globulin Ratio 0.3 (1.0-2.7) L POC Whole Blood Glucose Pending Pending Arterial Blood pH 7.441 (7.350-7.450) Arterial Blood Partial Pressure CO2 46.2 mmHg (35.0-45.0) H Arterial Blood Partial Pressure O2 113.0 mmHg (75.0-100.0) H Arterial Blood HCO3 30.7 mmol/L (22.0-26.0) H Arterial Blood Oxygen Saturation 97.6 % (95-100) Arterial Blood Base Excess 6 (-2-2) H Eugene Test Positive Microbiology Date/Time Source Procedure Growth Status 01/08/20 18:25 Indwelling Cath Urine Culture - Preliminary NO GROWTH Resulted 01/08/20 18:25 Sputum Induced Gram Stain - Final Resulted 01/08/20 18:25 Sputum Culture - Preliminary Gram Negative Bacillus 1 Resulted 01/08/20 15:15 Blood Blood Culture - Preliminary NO GROWTH AFTER 24 HOURS Resulted Assessment/Plan Assessment/Plan CRITICAL AND GUARDED Acute respiratory failure Acute on chronic respiratory acidosis AFiB with labile heart rates CHF, ac/chr diastolic BLE edema Sepsis with shock obesity COPD with bronchospasm Acute renal failure - worsening Pleural effusion GI bleeding Anemia - multifactorial, now worse Covid 19 PNA Hypokalemia Dehydration/hypernatremia corrected Hypertension/HHD with labile BP - now stable range. Vent support PRBC transfusion Monitor acid/base parameters. Antimicrobials Titrate rate-control meds -maintain diltiazem and metoprolol with hold parameters for low BP. DC apixaban - hold anticoagulation due to GI bleeding; resume with GI clearance. Continued traffic monitor specialist Diuresis based on clinical parameters; trend BNP Trach now planned Potassium and free water suppl as needed Agree with DNR Jerome Meek MD Jan 10, 2020 02:03
--- NOTE | 2020-01-10 03:00 | NUR ---
NURSE NOTES: SBP decreased to 88. Titrated Fentanyl down to 120mcg/min. Repositioned.
[2020-01-10] MEDS: Metoclopramide 10mg/2ml Inj IVP SCH ×4 (03:20→20:08)
--- NOTE | 2020-01-10 04:00 | NUR ---
NURSE NOTES: Blood drawn peripherally for Am results. Cooling blanket and rectal probe repositioned.
[2020-01-10 05:07] LABS: CREATININE 1.8 MG/DL (0.55-1.30); POTASSIUM 3.8 MMOL/L (3.5-5.1)
[2020-01-10 05:16] LABS: HEMATOCRIT 23.4 % (37.0-47.0); HEMOGLOBIN 7.7 G/DL (12.0-16.0); MEAN CORPUSCULAR VOLUME 89 FL (80-99); PLATELET COUNT 91 K/UL (150-450); RED BLOOD COUNT 2.62 M/UL (4.20-5.40); RED CELL DISTRIBUTION WIDTH 20.5 % (11.6-14.8)
[2020-01-10] MEDS: NovoLOG Insulin Flexpen SUBQ SCH ×3 (05:35→18:00)
[2020-01-10] MEDS: dilTIAZem HCl 60mg tab NG SCH ×3 (05:37→23:27)
[2020-01-10] MEDS: Piperacillin/Tazobactam 3.375 GM in NS 110 ML IVPB SCH ×2 (05:37→14:34)
[2020-01-10] MEDS: Acetaminophen 650mg/20.3ml NG PRN (05:38)
--- NOTE | 2020-01-10 06:00 | NUR ---
NURSE NOTES: Tylenol PRN given for temp of 101.6F rectally. Cooling blanket on. Temp is decreasing; currently 100.7F rectally. Patient became agitated and very restless. Fentanyl has been increased to 140mcgs/min per protocol. Bed bath given, linens changed, oral care and suctioning done, turned and repositioned.
--- NOTE | 2020-01-10 07:18 | NUR ---
NURSE HAND-OFF REPORT: Latest Vital Signs: Temperature 100.7 , Pulse 133 , B/P 103 /86 , Respiratory Rate 19 , O2 SAT 93 , Mechanical Ventilator, O2 Flow Rate . Vital Sign Comment: Stable EKG Rhythm: Atrial Fibrillation Rhythm change?: N Notified?: N -MD Gaviota UNDERWOOD Response: Latest Abreu Fall Score: 75 Fall Risk: High Risk Safety Measures: Call light Within Reach, Bed Alarm Zone 1, Side Rails Side Rails x3, Bed position Low and Locked. Fall Precautions: Yellow Socks Yellow Gown Door Sign Patient Fall Education Report given to .
--- NOTE | 2020-01-10 07:29 | NUR ---
CASE MANAGEMENT: REVIEW SI: COVID-19 . RESP FAILURE . A-FIB TRACHEOSTOMY 01/08 T 100.7 HR 151 RR 21 BP 103/86 SAT 93% MECH VENT FIO2 40 WBC 3.0 H/H 7.7/23.4 BUN 39 CR 1.8 URINE CX PENDING IS: LASIX IV Q6HR POLYMYXIN IV Q12HR FENTANYL IV Q24HR PROTONIX IV Q12HR ZOSYN IV Q8HR CARDIZEM NG Q8HR METOPROLOL NG Q12HR NPO FOR PEG PLACEMENT NON-VIOLENT RESTRAINTS ICU STATUS DCP: PATIENT WILL NEED SUBACUTE PLACEMENT
--- NOTE | 2020-01-10 07:30 | NUR ---
NURSE NOTES: Patient received from Merna COHEN. Patient stable at this time with no s/sx of pain or distress. AOx0 resting comfortably but maintaining eyes closed at RR even and unlabored on trach shiley 8. Dressing dry and intact. Ventilator settings as ordered AC 18 600mL 40% P5. Cardiac sounds benign. Breath sounds diminished, rhoncus with RT > LT. Bowels sounds hypoactive. Feeding held at this time. Zero residual. NGT in place. BL radial and Pedal pulses weak. Generalized edema present with hands +2 and ankles +3. Lockett in place draining well to gravity. No BM at this time. LT UA PICC line dressing dry and intact. Patent with Zosyn and Fentayl infusing at 140mcg/hr. Restraints on with good ROM, sensation and circulation. Dependent edema present and previously noted unrelated to restraints. Side rails upx2, bed low and locked.
--- NOTE | 2020-01-10 07:39 | NUR ---
RD ASSESSMENT & RECOMMENDATIONS SEE CARE ACTIVITY FOR COMPLETE ASSESSMENT DAILY ESTIMATED NEEDS: Needs based on Obesity, Cardiac, DM, NATALIE, Critical Care/ 80.5kg abw 22-25kg/IBW (59kg) kcals/kg 4559-5344 total kcals 1-2 g protein/kg 80-161 g total protein 20-25 mL/kg 3430-5748 total fluid mLs NUTRITION DIAGNOSIS: 1) Class III Obesity R/T lifestyle factors? excessive energy intake as evidenced by pt w/ BMI >50, @ 245% IBW. 2) Altered nutrition related lab values R/T diabetes, altered lipid metabolism, cardiac hx, NATALIE as evidenced by A1C of 7.1, elev triglyceride 239-> wnl, elev BNP 4671->2682, elev creat (1.7->4.3 -> 1.8, elev BUN (92 -> 39 trend down), elev K (5.4, 5.2 -> wnl->5.3-> wnl), 3) Swallowing difficulty R/T decreased cognitive fxn, respiratory status as evidenced by s/p NGT insertion (12/17), s/p worsening respiratory status, Covid-19 postive, orally intubated (12/22), s/p trach placement (02/07), pending PEG placement. CURRENT TF:NPO ENTERAL NUTRITION RECOMMENDATIONS: Glucerna 1.5 @ 40ml/hr x 24 hrs to provide 960ml, 1440kcal, 79g prot, 729ml free water * S/p PEG placement, initiate Glucerna 1.5 @ 20ml/hr x 4hrs, advance 10ml q 4 hrs as tolerated to goal * HOB over 30 degrees/ water flush per MD ADDITIONAL RECOMMENDATIONS: 1) Calibrated bedscale wt: fluctuating daily wts 2) Monitor renal fxn and lytes: creat stable 1.7-1.8, improved 3) Wound healing: add Nephrovite x 1, Vit C 250mg QD, Armand BID 4) Monitor BGs closely w/ Decadron, now off. 5) Feed at goal w/ hemodynamic stability . .
[2020-01-10] MEDS: Metoprolol Tartrate 50mg tab NG SCH ×2 (08:50→20:09)
[2020-01-10] MEDS: Pantoprazole Inj IVP SCH ×2 (08:51→20:08)
[2020-01-10] MEDS: Docusate 100mg/10ml Liq NG SCH ×2 (08:51→18:00)
[2020-01-10] MEDS: Bacitracin Oint UD TOPIC SCH ×2 (08:52→20:11)
--- NOTE | 2020-01-10 10:00 | NUR ---
NURSE NOTES: Patient stable at this time. No s/sx of pain or distress. VSS.
--- NOTE | 2020-01-10 10:01 | General Progress Note ---
Subjective ROS Limited/Unobtainable: Yes Allergies: Coded Allergies: ERYTHROMYCIN BASE (Verified Allergy, Severe, 12/12/19) HALOPERIDOL (Verified Allergy, Unknown, 12/12/19) VANCOMYCIN (Unverified Adverse Reaction, Intermediate, Shortness of Breath, 12/12/19) Objective Last 24 Hour Vital Signs Date Time Temp Pulse Resp B/P (MAP) Pulse Ox O2 Delivery O2 Flow Rate FiO2 01/10/20 08:50 116 109/65 01/10/20 08:00 40 01/10/20 08:00 Mechanical Ventilator 01/10/20 07:30 115 19 40 01/10/20 07:00 133 19 103/86 (92) 93 01/10/20 06:30 142 19 133/67 (89) 91 01/10/20 06:30 20 133/67 Mechanical Ventilator 40 01/10/20 06:15 147 17 130/82 (98) 93 01/10/20 06:15 21 130/82 Mechanical Ventilator 40 01/10/20 06:08 100.7 01/10/20 06:00 21 102/89 Mechanical Ventilator 40 01/10/20 06:00 151 19 102/89 (93) 94 01/10/20 05:45 150 21 132/67 (88) 76 01/10/20 05:45 22 132/67 Mechanical Ventilator 40 01/10/20 05:37 155 138/66 01/10/20 05:30 158 23 138/66 (90) 93 01/10/20 05:30 21 138/66 Mechanical Ventilator 40 01/10/20 05:00 143 19 129/49 (75) 92 01/10/20 05:00 23 129/49 Mechanical Ventilator 40 01/10/20 04:00 101.4 142 22 118/90 (99) 81 01/10/20 04:00 40 01/10/20 04:00 Mechanical Ventilator 01/10/20 04:00 21 118/90 Mechanical Ventilator 40 01/10/20 03:11 126 01/10/20 03:00 127 21 88/67 (74) 98 01/10/20 03:00 21 88/67 Mechanical Ventilator 40 01/10/20 02:39 126 28 40 01/10/20 02:00 103 12 116/55 (75) 99 01/10/20 02:00 12 115/61 Mechanical Ventilator 40 01/10/20 01:00 10 116/53 Mechanical Ventilator 40 01/10/20 01:00 105 15 117/58 (77) 99 01/10/20 00:00 Mechanical Ventilator 01/10/20 00:00 18 110/56 Mechanical Ventilator 40 01/10/20 00:00 97.9 100 18 103/55 (71) 100 01/09/20 23:08 100 01/09/20 23:00 96 19 109/56 (73) 99 01/09/20 23:00 18 113/56 Mechanical Ventilator 40 01/09/20 22:30 104 21 40 01/09/20 22:00 106 17 114/54 (74) 100 01/09/20 22:00 18 112/56 Mechanical Ventilator 40 01/09/20 21:38 111 107/60 01/09/20 21:00 118 18 122/54 (76) 99 01/09/20 21:00 17 122/54 Mechanical Ventilator 40 01/09/20 20:45 19 122/68 Mechanical Ventilator 40 01/09/20 20:45 135 23 122/68 (86) 98 01/09/20 20:30 19 132/66 Mechanical Ventilator 40 01/09/20 20:30 134 19 132/66 (88) 99 01/09/20 20:24 124 14 107/71 (83) 99 01/09/20 20:15 120 13 84/72 (76) 100 01/09/20 20:15 18 84/72 Mechanical Ventilator 40 01/09/20 20:10 123 121/59 01/09/20 20:00 40 01/09/20 20:00 11 121/59 Mechanical Ventilator 40 01/09/20 20:00 Mechanical Ventilator 01/09/20 20:00 98.5 122 9 121/59 (79) 100 01/09/20 19:35 112 01/09/20 19:20 145 26 40 01/09/20 19:00 139 21 135/60 (85) 100 01/09/20 19:00 21 135/60 Endotracheal Tube 40 01/09/20 18:45 21 135/68 Endotracheal Tube 40 01/09/20 18:30 138 24 109/49 (69) 100 01/09/20 18:30 21 109/49 Endotracheal Tube 40 01/09/20 18:15 21 112/72 Endotracheal Tube 40 01/09/20 18:15 130 21 112/72 (85) 75 01/09/20 18:00 144 23 92/80 (84) 77 01/09/20 18:00 22 92/80 Endotracheal Tube 40 01/09/20 17:45 131 24 121/74 (90) 01/09/20 17:30 124 23 130/72 (91) 94 01/09/20 17:15 123 21 110/81 (91) 96 01/09/20 17:08 22 106/75 Endotracheal Tube 40 01/09/20 17:00 109 18 106/75 (85) 99 01/09/20 16:45 121 19 102/69 (80) 98 01/09/20 16:35 123 23 92/77 (82) 98 01/09/20 16:15 124 24 131/75 (93) 96 01/09/20 16:08 23 105/81 Endotracheal Tube 40 01/09/20 16:00 124 01/09/20 16:00 98.9 118 24 105/81 (89) 98 01/09/20 16:00 Trach Collar 01/09/20 16:00 40 01/09/20 15:53 24 98/45 Endotracheal Tube 40 01/09/20 15:45 120 25 98/45 (62) 99 01/09/20 15:38 22 125/81 Endotracheal Tube 40 01/09/20 15:30 117 24 125/81 (96) 98 01/09/20 15:23 20 129/74 Endotracheal Tube 40 01/09/20 15:15 118 21 129/74 (92) 99 01/09/20 15:08 23 152/115 Endotracheal Tube 40 01/09/20 15:05 116 18 40 01/09/20 15:00 126 21 152/115 (127) 96 01/09/20 15:00 101 12 100 01/09/20 14:53 22 142/108 Endotracheal Tube 40 01/09/20 14:45 133 22 142/108 (119) 96 01/09/20 14:38 22 132/70 Endotracheal Tube 40 01/09/20 14:30 141 22 132/70 (90) 98 01/09/20 14:23 22 128/57 Endotracheal Tube 40 01/09/20 14:15 141 128/57 (80) 97 01/09/20 14:08 18 101/53 Endotracheal Tube 40 01/09/20 14:06 142 101/53 01/09/20 14:00 144 101/53 (69) 96 01/09/20 14:00 130 14 99 01/09/20 13:44 99.8 122/68 (86) 01/09/20 13:30 40 01/09/20 12:30 18 94/57 Endotracheal Tube 40 01/09/20 12:30 98 18 96/56 (69) 01/09/20 12:15 99 18 94/57 (69) 01/09/20 12:00 106 01/09/20 12:00 101 18 97/52 (67) 01/09/20 12:00 Mechanical Ventilator 01/09/20 12:00 18 97/52 Endotracheal Tube 40 01/09/20 12:00 40 01/09/20 11:45 18 109/60 Endotracheal Tube 40 01/09/20 11:45 102 18 109/60 (76) 01/09/20 11:30 108 18 110/56 (74) 01/09/20 11:30 18 110/56 Endotracheal Tube 40 01/09/20 11:24 104 22 40 01/09/20 11:15 18 115/76 Endotracheal Tube 40 01/09/20 11:15 120 23 116/76 (89) 80 01/09/20 11:00 100.3 101 18 102/56 (71) 100 01/09/20 11:00 18 102/56 Endotracheal Tube 40 01/09/20 10:00 18 108/53 Endotracheal Tube 40 01/09/20 10:00 100.0 01/09/20 10:00 100.0 108 18 108/53 (71) Intake and Output 01/09/20 01/10/20 19:00 07:00 Intake Total 581.22 ml 1420.08 ml Output Total 800 ml 1650 ml Balance -218.78 ml -229.92 ml Free Water 60 ml IV Total 536.22 ml 1180.08 ml Tube Feeding 45 ml 180 ml Output Urine Total 800 ml 1650 ml # Bowel Movements 3 1 Laboratory Tests 01/09/20 23:35: POC Whole Blood Glucose [Pending] 01/10/20 04:00: White Blood Count 3.0L, Red Blood Count 2.62L, Hemoglobin 7.7L, Hematocrit 23.4L , Mean Corpuscular Volume 89, Mean Corpuscular Hemoglobin 29.3, Mean Corpuscular Hemoglobin Concent 32.8, Red Cell Distribution Width 20.5H, Platelet Count 91L, Mean Platelet Volume 7.8, Neutrophils (%) (Auto) , Lymphocytes (%) (Auto) , Monocytes (%) (Auto) , Eosinophils (%) (Auto) , Basophils (%) (Auto) , Differential Total Cells Counted 100, Neutrophils % (Manual) 61, Lymphocytes % (Manual) 27, Monocytes % (Manual) 7, Eosinophils % (Manual) 2, Basophils % (Manual) 1, Band Neutrophils 2, Nucleated Red Blood Cells 3, Platelet Estimate DecreasedL, Platelet Morphology Normal, Hypochromasia 3+, Anisocytosis 2+, Spherocytes 1+, Sodium Level 139, Potassium Level 3.8, Chloride Level 105, Car bon Dioxide Level 29, Anion Gap 5, Blood Urea Nitrogen 39H, Creatinine 1.8H, Estimat Glomerular Filtration Rate 28.0, Glucose Level 130H, Calcium Level 8.0L 01/10/20 05:33: POC Whole Blood Glucose [Pending] Height (Feet): 5 Height (Inches): 6.00 Weight (Pounds): 344 General Appearance: other - sedated, trach vent Neck: normal alignment Cardiovascular: regularly irregular Respiratory/Chest: rhonchi - bilaterally Abdomen: non tender Edema: mild edema Neurologic: unresponsive Assessment/Plan Problem List: (1) Schizophrenia ICD Codes: F20.9 - Schizophrenia, unspecified SNOMED: 28390295 (2) GERD (gastroesophageal reflux disease) ICD Codes: K21.9 - Gastro-esophageal reflux disease without esophagitis SNOMED: 170341603 (3) Lymphadema (4) Smoker ICD Codes: F17.200 - Nicotine dependence, unspecified, uncomplicated SNOMED: 17739819 (5) Atrial fibrillation with rapid ventricular response ICD Codes: I48.91 - Unspecified atrial fibrillation SNOMED: 553217263664978 (6) CKD (chronic kidney disease) stage 3, GFR 30-59 ml/min ICD Codes: N18.3 - Chronic kidney disease, stage 3 (moderate) SNOMED: 968099372 (7) NATALIE (acute kidney injury) ICD Codes: N17.9 - Acute kidney failure, unspecified SNOMED: 4409427, 86936134 (8) COPD (chronic obstructive pulmonary disease) ICD Codes: J44.9 - Chronic obstructive pulmonary disease, unspecified SNOMED: 72471953 (9) UGI bleed ICD Codes: K92.2 - Gastrointestinal hemorrhage, unspecified SNOMED: 17895048 (10) Dysphagia ICD Codes: R13.10 - Dysphagia, unspecified SNOMED: 39187437, 633143808 (11) UTI (urinary tract infection) ICD Codes: N39.0 - Urinary tract infection, site not specified SNOMED: 82193902 (12) ESBL (extended spectrum beta-lactamase) producing bacteria infection ICD Codes: A49.9 - Bacterial infection, unspecified; Z16.12 - Extended spectrum beta lactamase (ESBL) resistance SNOMED: 030957299 (13) Dehydration ICD Codes: E86.0 - Dehydration SNOMED: 19876159 (14) CHF exacerbation ICD Codes: I50.9 - Heart failure, unspecified SNOMED: 624242646, 36602891777429 (15) Acute respiratory failure ICD Codes: J96.00 - Acute respiratory failure, unspecified whether with hypoxia or hypercapnia SNOMED: 13996765 (16) COVID-19 ICD Codes: U07.1 - COVID-19 SNOMED: 008211129 (17) Pneumonia ICD Codes: J18.9 - Pneumonia, unspecified organism SNOMED: 885375430 Qualifiers: (18) Hematoma of lower leg ICD Codes: S80.10XA - Contusion of unspecified lower leg, initial encounter SNOMED: 176183957 (19) CKD (chronic kidney disease) stage 3, GFR 30-59 ml/min ICD Codes: N18.3 - Chronic kidney disease, stage 3 (moderate) SNOMED: 152752372 Status: stable Assessment/Plan: resp distress, icu, trach, vent, natalie on ckd,,now stable, I/O, ,+hematoma RLE stop eliquis , lovenox now iv protonix, rx esbl and + vre uti,g+ cocci linezolid , remains high risk, d/w psych, ID, cardiology, chf and on lasix ,covid neg prior now +, grave prognosis, fungemia on micafungin likely will be unable to wean for a long time, agitated when tried to wean and had apnea 01/01, cpap trial 01/02 +9/*25 had distress/tachycardia , ,all lab and orders reviewed , no active bleeding , low Hb to transfuse 01/08 preop, increase lasix for chf , reculture, d/w dr curran needs trach, done,Needs gastrostomy unable to sign, Sr Curran thinks that she might be able to wean gradually after trach placed, febrile again and infiltrates, trach scheduled 01/08, done icu time 35 min Benjamin Dumont MD Jan 10, 2020 10:01
--- NOTE | 2020-01-10 10:06 | Pulmonolgy Critical Care Note ---
Luz Bowen SKIN PILER 01/10/20 1006: Critical Care - Asmt/Plan Assessment/Plan: ASSESSMENT acute hypoxemic hypercapnic resp failure, requiring intubation 12/22 failure to wean s/p trach 01/08 COVID 19 PNA sepsis fungemia UTI with E coli ESBL UTI VRE possible aspiration PNA Moderate R pleural effusion COPD Bronchospasm Atrial fibrillation with rapid ventricular response Congestive heart failure Acute renal failure on CKD Severe anemia Probable GI bleeding Thrombocytopenia Status post ground fall Tobacco dependency Morbid obesity probably GARY Homeless R knee edema and hematoma, likely sprain /strain post fall PLAN OF CARE ICU intubated 12/22 MDI Albuterol in line with vent fup with CXR and ABG prior started on weaning trials with high PS settings as ordered, goal MV 10 was not able to wean a/p 01/08 trach plan in am weaning from vent CXR 01/03 no sign change CXR 01/05 noted, CXR 01/[address] effusion hold on thoracentesis for now CXR 01/07 Apparent worsening aeration of the right lung CXR for this am pending back on Fentanyl gtt monitor hemodynamic status closely s/p steroids IV ( started 12/23) continue for total of 10 days till 01/02 s/p Remdesivir (started 12/24 ), dc 12/30 initial diagnoses with COVID 19 at [facility] 11/29, was not hypoxic and not intubat ed, was not treated with Remdesivivr , only received empiric abx for PNA sedation with Fentanyl gtt and versed prn - DVT prophylaxis with Lovenox prior Venous Duplex BLE -NGT COVID 19 by PCR 12/22 positive isolation IL 6 52 , initial CRP 15.6, ferritin 769, fup with inflammatory markers CRP 12/29 - down to 11.8 ; ferritin down to 503 CRP 01/03 -10.7 on diuresis with Lasix , monitor volumes closely creat remains stable rate control- per cardio recs: monitor volumes trend pro B ECHO with pEF no evidence of WMA GI prophylaxis with PPI s/p Venofer x 2 s/p blood transfusion 12/25 monitor HH with goal to keep Hgb >7 completed IV Venofer x5 days ( 01/04- 01/08) s/p 1 u PRBC 01/08 ( going for surgery, Hgb 6.7) GI procedure when stable monitor PLT counts asp precautions NGTF PEG today 01/09 renal US no hydro, BL nonobstructive stones s/p IV hydration, now resumed again per nephro monitor renal parameters, lytes , e/lyte management as per nephro recs creat stable UCX 12/11 + E coli ESBL, BCX 12/16 12 + yeast, fup with yeast ID, ? source BCX 12/17 NGTD BCX 12/22 and 12/24 NGTD UCX 12/16 VRE SCX 12/19 MRSA, ACB MDR now on Polymyxin , Zyvox and Zosyn -as per ID recs; cooling blanket prn fevers prior X ray R knee given fall 12/15 , large hematoma, swelling-no fx or dislocation ice R knee and elevate CT head no acute IC pathology fall precautions prior declined Nicotine patch discussion on weight loss if receptive - not at this time; anxious and wants to go home pain management anxiolytic prn SW consult for placement evaluated by bioethics -> DNR/DNI status appropriate given current critical condition , grave prognosis and multiple comorbidities, would recommend DNR/DNI status as well DNR/DNI status case discussed and evaluated by supervising physician ivy mccarty for a consult! Critical Care - Objective Last 24 Hour Vital Signs Date Time Temp Pulse Resp B/P (MAP) Pulse Ox O2 Delivery O2 Flow Rate FiO2 01/10/20 08:50 116 109/65 01/10/20 08:00 40 01/10/20 08:00 Mechanical Ventilator 01/10/20 07:30 115 19 40 01/10/20 07:00 133 19 103/86 (92) 93 01/10/20 06:30 142 19 133/67 (89) 91 01/10/20 06:30 20 133/67 Mechanical Ventilator 40 01/10/20 06:15 147 17 130/82 (98) 93 01/10/20 06:15 21 130/82 Mechanical Ventilator 40 01/10/20 06:08 100.7 01/10/20 06:00 21 102/89 Mechanical Ventilator 40 01/10/20 06:00 151 19 102/89 (93) 94 01/10/20 05:45 150 21 132/67 (88) 76 01/10/20 05:45 22 132/67 Mechanical Ventilator 40 01/10/20 05:37 155 138/66 01/10/20 05:30 158 23 138/66 (90) 93 01/10/20 05:30 21 138/66 Mechanical Ventilator 40 01/10/20 05:00 143 19 129/49 (75) 92 01/10/20 05:00 23 129/49 Mechanical Ventilator 40 01/10/20 04:00 101.4 142 22 118/90 (99) 81 01/10/20 04:00 40 01/10/20 04:00 Mechanical Ventilator 01/10/20 04:00 21 118/90 Mechanical Ventilator 40 01/10/20 03:11 126 01/10/20 03:00 127 21 88/67 (74) 98 01/10/20 03:00 21 88/67 Mechanical Ventilator 40 01/10/20 02:39 126 28 40 01/10/20 02:00 103 12 116/55 (75) 99 01/10/20 02:00 12 115/61 Mechanical Ventilator 40 01/10/20 01:00 10 116/53 Mechanical Ventilator 40 01/10/20 01:00 105 15 117/58 (77) 99 01/10/20 00:00 Mechanical Ventilator 01/10/20 00:00 18 110/56 Mechanical Ventilator 40 01/10/20 00:00 97.9 100 18 103/55 (71) 100 01/09/20 23:08 100 01/09/20 23:00 96 19 109/56 (73) 99 01/09/20 23:00 18 113/56 Mechanical Ventilator 40 01/09/20 22:30 104 21 40 01/09/20 22:00 106 17 114/54 (74) 100 01/09/20 22:00 18 112/56 Mechanical Ventilator 40 01/09/20 21:38 111 107/60 01/09/20 21:00 118 18 122/54 (76) 99 01/09/20 21:00 17 122/54 Mechanical Ventilator 40 01/09/20 20:45 19 122/68 Mechanical Ventilator 40 01/09/20 20:45 135 23 122/68 (86) 98 01/09/20 20:30 19 132/66 Mechanical Ventilator 40 01/09/20 20:30 134 19 132/66 (88) 99 01/09/20 20:24 124 14 107/71 (83) 99 01/09/20 20:15 120 13 84/72 (76) 100 01/09/20 20:15 18 84/72 Mechanical Ventilator 40 01/09/20 20:10 123 121/59 01/09/20 20:00 40 01/09/20 20:00 11 121/59 Mechanical Ventilator 40 01/09/20 20:00 Mechanical Ventilator 01/09/20 20:00 98.5 122 9 121/59 (79) 100 01/09/20 19:35 112 01/09/20 19:20 145 26 40 01/09/20 19:00 139 21 135/60 (85) 100 01/09/20 19:00 21 135/60 Endotracheal Tube 40 01/09/20 18:45 21 135/68 Endotracheal Tube 40 01/09/20 18:30 138 24 109/49 (69) 100 01/09/20 18:30 21 109/49 Endotracheal Tube 40 01/09/20 18:15 21 112/72 Endotracheal Tube 40 01/09/20 18:15 130 21 112/72 (85) 75 01/09/20 18:00 144 23 92/80 (84) 77 01/09/20 18:00 22 92/80 Endotracheal Tube 40 01/09/20 17:45 131 24 121/74 (90) 01/09/20 17:30 124 23 130/72 (91) 94 01/09/20 17:15 123 21 110/81 (91) 96 01/09/20 17:08 22 106/75 Endotracheal Tube 40 01/09/20 17:00 109 18 106/75 (85) 99 01/09/20 16:45 121 19 102/69 (80) 98 01/09/20 16:35 123 23 92/77 (82) 98 01/09/20 16:15 124 24 131/75 (93) 96 01/09/20 16:08 23 105/81 Endotracheal Tube 40 01/09/20 16:00 124 01/09/20 16:00 98.9 118 24 105/81 (89) 98 01/09/20 16:00 Trach Collar 01/09/20 16:00 40 01/09/20 15:53 24 98/45 Endotracheal Tube 40 01/09/20 15:45 120 25 98/45 (62) 99 01/09/20 15:38 22 125/81 Endotracheal Tube 40 01/09/20 15:30 117 24 125/81 (96) 98 01/09/20 15:23 20 129/74 Endotracheal Tube 40 01/09/20 15:15 118 21 129/74 (92) 99 01/09/20 15:08 23 152/115 Endotracheal Tube 40 01/09/20 15:05 116 18 40 01/09/20 15:00 126 21 152/115 (127) 96 01/09/20 15:00 101 12 100 01/09/20 14:53 22 142/108 Endotracheal Tube 40 01/09/20 14:45 133 22 142/108 (119) 96 01/09/20 14:38 22 132/70 Endotracheal Tube 40 01/09/20 14:30 141 22 132/70 (90) 98 01/09/20 14:23 22 128/57 Endotracheal Tube 40 01/09/20 14:15 141 128/57 (80) 97 01/09/20 14:08 18 101/53 Endotracheal Tube 40 01/09/20 14:06 142 101/53 01/09/20 14:00 144 101/53 (69) 96 01/09/20 14:00 130 14 99 01/09/20 13:44 99.8 122/68 (86) 01/09/20 13:30 40 01/09/20 12:30 18 94/57 Endotracheal Tube 40 01/09/20 12:30 98 18 96/56 (69) 01/09/20 12:15 99 18 94/57 (69) 01/09/20 12:00 106 01/09/20 12:00 101 18 97/52 (67) 01/09/20 12:00 Mechanical Ventilator 01/09/20 12:00 18 97/52 Endotracheal Tube 40 01/09/20 12:00 40 01/09/20 11:45 18 109/60 Endotracheal Tube 40 01/09/20 11:45 102 18 109/60 (76) 01/09/20 11:30 108 18 110/56 (74) 01/09/20 11:30 18 110/56 Endotracheal Tube 40 01/09/20 11:24 104 22 40 01/09/20 11:15 18 115/76 Endotracheal Tube 40 01/09/20 11:15 120 23 116/76 (89) 80 01/09/20 11:00 100.3 101 18 102/56 (71) 100 01/09/20 11:00 18 102/56 Endotracheal Tube 40 Objective: CONDITION: critical General Appearance: morbidly obese , sedated, generalized anasarca ; on vent AC 600-18-40% PEEP 5 Lines, tubes and drains: LUE PICC new , intact HEENT: normocephalic, atraumatic, anicteric, NGT in , Neck: trach with Shiley # 8, secretions moderate amount, yellow color, thick consistency Respiratory/Chest: chest wall non-tender, no accessory muscle use, BS overall clear, Cardiovascular/Chest: irregularly irregular - A fib , tachy , distant heart sounds, Abdomen: normal bowel sounds, non tender , obese, soft : [place] Extremities: no calf tenderness, moderate edema - +3 BLE, R knee with large hematoma, edema, Skin Exam: warm/dry, multiple tattoos Neurologic: sedated Musculoskeletal: normal muscle bulk Micro: Microbiology Date/Time Source Procedure Growth Status 01/08/20 18:25 Indwelling Cath Urine Culture - Preliminary NO GROWTH AFTER 24 HOURS Resulted 01/08/20 18:25 Sputum Induced Gram Stain - Final Resulted 01/08/20 18:25 Sputum Induced Sputum Culture - Preliminary NORMAL UPPER RESPIRATORY NIKOLAS AT 24 ... Resulted 01/08/20 15:15 Blood Blood Culture - Preliminary NO GROWTH AFTER 24 HOURS Resulted Accucheck: 135 Critical Care - Subjective ROS Limited/Unobtainable: Yes Interval Events: s/p trach 01/08 tolerates well CXR for this am pending PEG pending for today +fevers, tachycardic back on Fentanyl gtt Condition: critical IV Access: PICC - LUE intact EKG Rhythm: Atrial Fibrillation - with RVR FI02: 40 Vent Support Breath Rate: 18 Vent Support Mode: AC Vent Tidal Volume: 600 Sputum Amount: Small PEEP: 5.0 PIP: 44 Drips: Fentanyl gtt 140 mcg/hr Tube Feeding Amount: 45 I&O: Intake and Output 01/09/20 01/10/20 19:00 07:00 Intake Total 581.22 ml 1420.08 ml Output Total 800 ml 1650 ml Balance -218.78 ml -229.92 ml Free Water 60 ml IV Total 536.22 ml 1180.08 ml Tube Feeding 45 ml 180 ml Output Urine Total 800 ml 1650 ml # Bowel Movements 3 1 CXR: CXR 01/07 apparent worsening aeration of the right lung may be due to technical factors. ET-Tube: 7.5 ET Position: 24 Igor Carpio MD 01/10/20 1206: Critical Care - Asmt/Plan Assessment/Plan: Patient seen and examined with SKIN PILER. Agree with above A&P as it reflects our joint deliberations. S/P trach, will start weaning trials, NAEO o/w CCT 35 Luz Bowen NP Jan 10, 2020 10:06 Igor Carpio MD Jan 10, 2020 12:06
[2020-01-10] MEDS: Polymyxin B Sulfate 500,000 UNITS in D5W 500ml 550 ML IV SCH (10:22)
[2020-01-10] MEDS: fentaNYL 2500mcg/NS 250ml 250 ML IV SCH (10:53)
--- NOTE | 2020-01-10 11:24 | Diagnostic Imaging Report ---
Indication: There is a breath Technique: One view of the chest Comparison: 01/08/2020 Findings: Interim conversion of endotracheal tube to a tracheostomy, appearing well positioned. Orogastric tube remains. Bilateral interstitial and airspace infiltrates versus edema persists, unchanged. Small bilateral pleural effusions persist, unchanged. Impression: Interim tracheostomy placement. No radiographically evident complication Stable bilateral pleural and parenchymal disease
--- NOTE | 2020-01-10 11:57 | NUR ---
NURSE NOTES: Patient RASS score -3 when fentanyl started and SPB in 80's. Fentanyl titrated down to 130mcg. On reassessment patient's SBP 77. Fentanyl dropped to 60mcg/hr. Patient still hypotensive and overly sedated. Fentanyl turned off. After reassessing. Patient remains hypotensive. Bolus initiated. BP improved but still low at 86/57. Will notify .
--- NOTE | 2020-01-10 12:05 | Pre-Procedure Note/Attestation ---
Pre-Procedure Note/Attestation Complete Prior to Procedure Planned Procedure: not applicable Procedure Narrative: egd/peg Indications for Procedure Pre-Operative Diagnosis: dysphgaia Attestation I attest that I discussed the nature of the procedure; its benefits; risks and complications; and alternatives (and the risks and benefits of such alternatives), prior to the procedure, with the patient (or the patient's legal charter representative). I attest that, if there was a reasonable possibility of needing a blood transfu sigifredo, the patient (or the patient's legal charter representative) was given the [facility] standardized written summary, pursuant to the Russell Varun Blood Safety Act ([place] Health and Safety Code # 1645, as amended). I attest that I re-evaluated the patient just prior to the surgery and that there has been no change in the patient's H&P, except as documented below: Mervin Victoria MD Jan 10, 2020 12:05
--- NOTE | 2020-01-10 12:35 | Surgery Progress Note ---
Surgery Progress Note Subjective Procedure Performed tracheostomy Additional Comments more comfortable with trach on vent peg soon Objective Last 24 Hour Vital Signs Date Time Temp Pulse Resp B/P (MAP) Pulse Ox O2 Delivery O2 Flow Rate FiO2 01/10/20 11:00 81 18 78/52 (61) 100 01/10/20 10:53 18 89/60 Endotracheal Tube 40 01/10/20 10:30 86 18 86/45 (59) 100 01/10/20 10:00 88 18 88/52 (64) 100 01/10/20 09:30 91 18 95/68 (77) 100 01/10/20 09:00 100 18 99/56 (70) 100 01/10/20 08:50 116 109/65 01/10/20 08:30 111 18 113/63 (80) 100 01/10/20 08:00 40 01/10/20 08:00 112 01/10/20 08:00 Mechanical Ventilator 01/10/20 08:00 112 18 115/68 (84) 100 01/10/20 07:30 107 18 98/58 (71) 99 01/10/20 07:30 115 19 40 01/10/20 07:00 133 19 103/86 (92) 93 01/10/20 06:30 142 19 133/67 (89) 91 01/10/20 06:30 20 133/67 Mechanical Ventilator 40 01/10/20 06:15 147 17 130/82 (98) 93 01/10/20 06:15 21 130/82 Mechanical Ventilator 40 01/10/20 06:08 100.7 01/10/20 06:00 21 102/89 Mechanical Ventilator 40 01/10/20 06:00 151 19 102/89 (93) 94 01/10/20 05:45 150 21 132/67 (88) 76 01/10/20 05:45 22 132/67 Mechanical Ventilator 40 01/10/20 05:37 155 138/66 01/10/20 05:30 158 23 138/66 (90) 93 01/10/20 05:30 21 138/66 Mechanical Ventilator 40 01/10/20 05:00 143 19 129/49 (75) 92 01/10/20 05:00 23 129/49 Mechanical Ventilator 40 01/10/20 04:00 101.4 142 22 118/90 (99) 81 01/10/20 04:00 40 01/10/20 04:00 Mechanical Ventilator 01/10/20 04:00 21 118/90 Mechanical Ventilator 40 01/10/20 03:11 126 01/10/20 03:00 127 21 88/67 (74) 98 01/10/20 03:00 21 88/67 Mechanical Ventilator 40 01/10/20 02:39 126 28 40 01/10/20 02:00 103 12 116/55 (75) 99 01/10/20 02:00 12 115/61 Mechanical Ventilator 40 01/10/20 01:00 10 116/53 Mechanical Ventilator 40 01/10/20 01:00 105 15 117/58 (77) 99 01/10/20 00:00 Mechanical Ventilator 01/10/20 00:00 18 110/56 Mechanical Ventilator 40 01/10/20 00:00 97.9 100 18 103/55 (71) 100 01/09/20 23:08 100 01/09/20 23:00 96 19 109/56 (73) 99 01/09/20 23:00 18 113/56 Mechanical Ventilator 40 01/09/20 22:30 104 21 40 01/09/20 22:00 106 17 114/54 (74) 100 01/09/20 22:00 18 112/56 Mechanical Ventilator 40 01/09/20 21:38 111 107/60 01/09/20 21:00 118 18 122/54 (76) 99 01/09/20 21:00 17 122/54 Mechanical Ventilator 40 01/09/20 20:45 19 122/68 Mechanical Ventilator 40 01/09/20 20:45 135 23 122/68 (86) 98 01/09/20 20:30 19 132/66 Mechanical Ventilator 40 01/09/20 20:30 134 19 132/66 (88) 99 01/09/20 20:24 124 14 107/71 (83) 99 01/09/20 20:15 120 13 84/72 (76) 100 01/09/20 20:15 18 84/72 Mechanical Ventilator 40 01/09/20 20:10 123 121/59 01/09/20 20:00 40 01/09/20 20:00 11 121/59 Mechanical Ventilator 40 01/09/20 20:00 Mechanical Ventilator 01/09/20 20:00 98.5 122 9 121/59 (79) 100 01/09/20 19:35 112 9/30/20 19:20 145 26 40 01/09/20 19:00 139 21 135/60 (85) 100 01/09/20 19:00 21 135/60 Endotracheal Tube 40 01/09/20 18:45 21 135/68 Endotracheal Tube 40 01/09/20 18:30 138 24 109/49 (69) 100 01/09/20 18:30 21 109/49 Endotracheal Tube 40 01/09/20 18:15 21 112/72 Endotracheal Tube 40 01/09/20 18:15 130 21 112/72 (85) 75 01/09/20 18:00 144 23 92/80 (84) 77 01/09/20 18:00 22 92/80 Endotracheal Tube 40 01/09/20 17:45 131 24 121/74 (90) 01/09/20 17:30 124 23 130/72 (91) 94 01/09/20 17:15 123 21 110/81 (91) 96 01/09/20 17:08 22 106/75 Endotracheal Tube 40 01/09/20 17:00 109 18 106/75 (85) 99 01/09/20 16:45 121 19 102/69 (80) 98 01/09/20 16:35 123 23 92/77 (82) 98 01/09/20 16:15 124 24 131/75 (93) 96 01/09/20 16:08 23 105/81 Endotracheal Tube 40 01/09/20 16:00 124 01/09/20 16:00 98.9 118 24 105/81 (89) 98 01/09/20 16:00 Trach Collar 01/09/20 16:00 40 01/09/20 15:53 24 98/45 Endotracheal Tube 40 01/09/20 15:45 120 25 98/45 (62) 99 01/09/20 15:38 22 125/81 Endotracheal Tube 40 01/09/20 15:30 117 24 125/81 (96) 98 01/09/20 15:23 20 129/74 Endotracheal Tube 40 01/09/20 15:15 118 21 129/74 (92) 99 01/09/20 15:08 23 152/115 Endotracheal Tube 40 01/09/20 15:05 116 18 40 01/09/20 15:00 126 21 152/115 (127) 96 01/09/20 15:00 101 12 100 9/30/20 14:53 22 142/108 Endotracheal Tube 40 01/09/20 14:45 133 22 142/108 (119) 96 01/09/20 14:38 22 132/70 Endotracheal Tube 40 01/09/20 14:30 141 22 132/70 (90) 98 01/09/20 14:23 22 128/57 Endotracheal Tube 40 01/09/20 14:15 141 128/57 (80) 97 01/09/20 14:08 18 101/53 Endotracheal Tube 40 01/09/20 14:06 142 101/53 01/09/20 14:00 144 101/53 (69) 96 01/09/20 14:00 130 14 99 01/09/20 13:44 99.8 122/68 (86) 01/09/20 13:30 40 I&O Intake and Output 01/09/20 01/10/20 19:00 07:00 Intake Total 581.22 ml 1420.08 ml Output Total 800 ml 1650 ml Balance -218.78 ml -229.92 ml Free Water 60 ml IV Total 536.22 ml 1180.08 ml Tube Feeding 45 ml 180 ml Output Urine Total 800 ml 1650 ml # Bowel Movements 3 1 Dressing: saturated Cardiovascular: RSR Respiratory: decreased breath sounds Abdomen: soft, non-tender, present bowel sounds Extremities: edema, cyanosis, no tenderness Laboratory Tests Test 01/09/20 23:35 01/10/20 04:00 01/10/20 05:33 POC Whole Blood Glucose Pending Pending White Blood Count 3.0 K/UL (4.8-10.8) L Red Blood Count 2.62 M/UL (4.20-5.40) L Hemoglobin 7.7 G/DL (12.0-16.0) L Hematocrit 23.4 % (37.0-47.0) L Mean Corpuscular Volume 89 FL (80-99) Mean Corpuscular Hemoglobin 29.3 PG (27.0-31.0) Mean Corpuscular Hemoglobin Concent 32.8 G/DL (32.0-36.0) Red Cell Distribution Width 20.5 % (11.6-14.8) H Platelet Count 91 K/UL (150-450) L Mean Platelet Volume 7.8 FL (6.5-10.1) Neutrophils (%) (Auto) % (45.0-75.0) Lymphocytes (%) (Auto) % (20.0-45.0) Monocytes (%) (Auto) % (1.0-10.0) Eosinophils (%) (Auto) % (0.0-3.0) Basophils (%) (Auto) % (0.0-2.0) Differential Total Cells Counted 100 Neutrophils % (Manual) 61 % (45-75) Lymphocytes % (Manual) 27 % (20-45) Monocytes % (Manual) 7 % (1-10) Eosinophils % (Manual) 2 % (0-3) Basophils % (Manual) 1 % (0-2) Band Neutrophils 2 % (0-8) Nucleated Red Blood Cells 3 /100 WBC Platelet Estimate Decreased L Platelet Morphology Normal Hypochromasia 3+ Anisocytosis 2+ Spherocytes 1+ Sodium Level 139 MMOL/L (136-145) Potassium Level 3.8 MMOL/L (3.5-5.1) Chloride Level 105 MMOL/L (98-107) Carbon Dioxide Level 29 MMOL/L (21-32) Anion Gap 5 mmol/L (5-15) Blood Urea Nitrogen 39 mg/dL (7-18) H Creatinine 1.8 MG/DL (0.55-1.30) H Estimat Glomerular Filtration Rate 28.0 mL/min (>60) Glucose Level 130 MG/DL (74-106) H Calcium Level 8.0 MG/DL (8.5-10.1) L Plan Problems: (1) Urinary tract infection (2) CHF exacerbation (3) History of schizophrenia (4) Atrial fibrillation with RVR (5) Schizophrenia (6) GERD (gastroesophageal reflux disease) (7) Smoker (8) Atrial fibrillation with rapid ventricular response (9) Lymphadema (10) COPD (chronic obstructive pulmonary disease) (11) CKD (chronic kidney disease) stage 3, GFR 30-59 ml/min (12) NATALIE (acute kidney injury) (13) Dehydration (14) Dysphagia (15) UTI (urinary tract infection) (16) UGI bleed (17) ESBL (extended spectrum beta-lactamase) producing bacteria infection (18) Constipation (19) Lactic acidosis (20) Tinea cruris (21) Onychomycosis (22) Emesis (23) Essential hypertension (24) Anemia (25) Cough (26) Depression (27) Depression (28) Edema (29) Rash (30) Opiate dependence (31) Opiate dependence (32) Opiate dependence (33) Opiate dependence (34) Pyelonephritis (35) Sepsis (36) UTI (urinary tract infection) (37) Nausea and vomiting (38) Abdominal pain Assessment & Plan: [age]-year-old female obese white abdominal pain deep tissue injury identified limited mobility on HD. KUB noted tube in place continue meds feeds Does not seem obstructed We will monitor lines noted. plan change resume tube feeds labs okay FINDINGS: Lower thorax: Obscuration of the left costophrenic angle suggestive of pleural effusion. Intraperitoneal space: No free air. Gastrointestinal tract: Unremarkable. No dilation. Bones/joints: Unremarkable. Tubes, lines and devices: The nasogastric tube has the tip at the mid inferior aspect of the gastric body. Other findings: Nonspecific gas pattern. Single frontal view of the abdomen demonstrates tip of the enteric tube and distal side-port projecting over the stomach. Gas is identified within the nondistended large bowel. There is a paucity of small bowel gas seen. Partially visualized left pleural effusion. No other significant interval change. (39) Chest pain (40) Chest pain (41) Nausea (42) Obesity (43) Chronic ulcer of leg (44) Chronic ulcer of leg (45) Chronic ulcer of leg (46) ACS (acute coronary syndrome) (47) Acute chest pain (48) Encounter for dressing change or suture removal (49) Left leg cellulitis (50) Acute encephalopathy (51) Encounter for wound re-check (52) Intractable nausea and vomiting (53) Infection due to ESBL-producing Escherichia coli (54) Chronic venous stasis (55) Change of dressing (56) Change of dressing (57) Change of dressing (58) Change of dressing (59) Change of dressing (60) Change of dressing (61) Change of dressing (62) Change of dressing (63) ESBL urine (64) Lymphadema (65) Lymphedema (66) Lymphedema (67) Lymphedema (68) Lymphedema (69) Lymphedema (70) Lymphedema (71) Lymphedema (72) Lymphedema (73) Open wound of foot (74) Open wound of foot (75) cellulitis (76) chronic lymphedema (77) chronic lymphedema (78) chronic lymphedema (79) hypertension uncontrolled (80) hypertension uncontrolled (81) Intertrigo (82) Sciatica (83) Cellulitis (84) Schizophrenia (85) Chronic bronchitis (86) HTN (hypertension) (87) Venous stasis ulcers (88) Medication refill (89) Chest pain, atypical (90) BMI 45.0-49.9, adult (91) Lymphedema of both lower extremities (92) hypertension uncontrolled (93) hypertension uncontrolled (94) hypertension uncontrolled (95) tenia corpus (96) Deep tissue injury Assessment & Plan: Morbidly obese pt whom presented on admission with Pressure injuries, Edemae bilat lower extremities eschar to dorsal aspects of metatarsals. Pt is very demanding of staff and can be resistive to repositioning. DTPI noted to L Sacrum(L)5.5cm x (W)2.5cm. Base of Pressure Injury is Maroon and indurated with surrounding non-blanchable erythema DTPI R Sacrum(L)5.5cm x (W)2.3cm. Base of Pressure Injury is maroon with purpuric center that is fluctuant. Pt complained of tenderness when minimally palpated. Bilat lower extremities are edematous . Dry eschar noted to nail matrix and tip of L 1st metatarsal, Dorsal L 2nd metatarsal, R 2nd and R 4th metatarsals. Both heels are boggy with non-Blanchable erythema. blisters forming on Right lower extremity anterior tibia. not infected cellulitis / edema on b/l le stable cont abx Tx.Plan: Apply Moisture Barrier Paste to Sacrum R and L gluteal cheeks. Cover with Optifoam drsgs. Change every 3 days and prn. Apply Betadine to dry eschar metatarsals both feet Daily. Apply Cavilon Skin Barrier to both heels. Cover each heel with Optifoam drsgs. Change every 7days and prn. Reposition at least every 2hours or as tolerated. Off-load heels with pillow. right leg hematoma stable critically ill and edema on right leg has compromised dermis over the hematoma. will likely need debridement once improved (97) COVID-19 Assessment & Plan: ++ on vent weaning abx as per ID (98) Respiratory failure Assessment & Plan: not able to wean safely will plan for trach case discussed with medical team, pulm, icu. recommended to trach given medical condition. medically indicated and recommended. s/p trach 01/08 (99) Pneumonia Juan Manuel Buckner Jan 10, 2020 12:35
--- NOTE | 2020-01-10 12:37 | Anethesia Preoperative Eval ---
Anesthesia Pre-op PMH/ROS General Date of Evaluation: Jan 10, 2020 Time of Evaluation: 12:00 Anesthesiologist: antonia ASA Score: ASA 4 Mallampati Score Class I : Soft palate, uvula, fauces, pillars visible Class II: Soft palate, uvula, fauces visible Class III: Soft palate, base of uvula visible Class IV: Only hard plate visible Mallampati Classification: Class III - Oraly intubated Surgeon: Esme Diagnosis: COPD; Resp Failure; Sepsis Surgical Procedure: PEG placement Anesthesia History: none Family History: no anesthesia problems Allergies: Coded Allergies: ERYTHROMYCIN BASE (Verified Allergy, Severe, 12/12/19) HALOPERIDOL (Verified Allergy, Unknown, 12/12/19) VANCOMYCIN (Unverified Adverse Reaction, Intermediate, Shortness of Breath, 12/12/19) Medications: see eMAR Patient NPO?: Yes NPO Date: Jan 10, 2020 NPO Time: 00:01 Past Medical History Cardiovascular: Reports: HTN, CAD, arrhythmia, other - Sepsis Pulmonary: Reports: COPD, other - Resp Failure; s/p trach; COVID postive; Denies: asthma, GARY Gastrointestinal/Genitourinary: Reports: GERD Neurologic/Psychiatric: Reports: dementia; Denies: CVA, depression/anxiety, TIA, other Endocrine: Reports: DM; Denies: hypothyroidism, steroids, other HEENT: Reports: cataract (L), cataract (R) Hematology/Immune: Reports: anemia Musculoskeletal/Integumentary: Reports: edema - R/L extremities, other - Steriods; Denies: OA, RA, DJD, DDD Other: obesity - morbid Anesthesia Pre-op Phys. Exam Physician Exam Last Vital Signs Date Time Temp Pulse Resp B/P (MAP) Pulse Ox O2 Delivery O2 Flow Rate FiO2 01/10/20 11:00 81 18 78/52 (61) 100 01/10/20 10:53 Endotracheal Tube 40 01/10/20 06:08 100.7 01/01/20 14:07 40.0 Constitutional: other - Hypotensive; Sepsis, Neurologic: other - Painful stimuli Cardiovascular: other - Afib Respiratory: other - Ronchi Gastrointestinal: other - distende Airway Exam Mallampati Classification trach Mallampati Score: Class III MO: limited ROM: limited Dentures: no upper, no lower Anesthesia Pre-op A/P Labs Hematology Test 01/10/20 04:00 White Blood Count 3.0 K/UL (4.8-10.8) L Red Blood Count 2.62 M/UL (4.20-5.40) L Hemoglobin 7.7 G/DL (12.0-16.0) L Hematocrit 23.4 % (37.0-47.0) L Mean Corpuscular Volume 89 FL (80-99) Mean Corpuscular Hemoglobin 29.3 PG (27.0-31.0) Mean Corpuscular Hemoglobin Concent 32.8 G/DL (32.0-36.0) Red Cell Distribution Width 20.5 % (11.6-14.8) H Platelet Count 91 K/UL (150-450) L Mean Platelet Volume 7.8 FL (6.5-10.1) Neutrophils (%) (Auto) % (45.0-75.0) Lymphocytes (%) (Auto) % (20.0-45.0) Monocytes (%) (Auto) % (1.0-10.0) Eosinophils (%) (Auto) % (0.0-3.0) Basophils (%) (Auto) % (0.0-2.0) Differential Total Cells Counted 100 Neutrophils % (Manual) 61 % (45-75) Lymphocytes % (Manual) 27 % (20-45) Monocytes % (Manual) 7 % (1-10) Eosinophils % (Manual) 2 % (0-3) Basophils % (Manual) 1 % (0-2) Band Neutrophils 2 % (0-8) Nucleated Red Blood Cells 3 /100 WBC Platelet Estimate Decreased L Platelet Morphology Normal Hypochromasia 3+ Anisocytosis 2+ Spherocytes 1+ Chemistry Test 01/09/20 23:35 01/10/20 04:00 01/10/20 05:33 POC Whole Blood Glucose Pending Pending Sodium Level 139 MMOL/L (136-145) Potassium Level 3.8 MMOL/L (3.5-5.1) Chloride Level 105 MMOL/L (98-107) Carbon Dioxide Level 29 MMOL/L (21-32) Anion Gap 5 mmol/L (5-15) Blood Urea Nitrogen 39 mg/dL (7-18) H Creatinine 1.8 MG/DL (0.55-1.30) H Estimat Glomerular Filtration Rate 28.0 mL/min (>60) Glucose Level 130 MG/DL (74-106) H Calcium Level 8.0 MG/DL (8.5-10.1) L Studies Pre-op Studies: EKG - Afib Risk Assessment & Plan Assessment: Covid Positive; off of Fentanyl Gtt Plan: Mac Status Change Before Surgery: No Pre-Antibiotics Drug: see chart Barbara Davis CRNA Jan 10, 2020 12:37
--- NOTE | 2020-01-10 12:38 | Immediate Post-Op Evaluation ---
Immediate Post-Op Evalulation Immediate Post-Op Evalulation Procedure: Peg placement Date of Evaluation: Jan 10, 2020 Time of Evaluation: 12:25 IV Fluids: 100 Blood Pressure Systolic: 94 Blood Pressure Diastolic: 50 Pulse Rate: 80 Respiratory Rate: 18 O2 Sat by Pulse Oximetry: 98 Nausea: No Vomiting: No Complications none Patient Status: reacts, patent - trach Hydration Status: other - see nurses note Drug: none from anesthesia Barbara Davis CRNA Jan 10, 2020 12:38
--- NOTE | 2020-01-10 13:00 | NUR ---
NURSE NOTES: PEG placement perfomed at bedside and finishe at 1240. Patient remained hypotensive throughout procedure. Per anesthesia, phenylephrine 100mcg given. Bolus still infusing but almost done. Dr. Meek contacted for further intervention. Awaiting call back
--- NOTE | 2020-01-10 13:59 | 48 Hour Post Anesthesia Eval ---
Post Anesthesia Evaluation Procedure: Tracheostomy Date of Evaluation: Jan 10, 2020 Time of Evaluation: 13:58 Blood Pressure Systolic: 102 0: 56 Pulse Rate: 82 Respiratory Rate: 20 Temperature (Fahrenheit): 97.6 O2 Sat by Pulse Oximetry: 97 Airway: other - trachostomy in place Nausea: No Vomiting: No Pain Intensity: 1 Hydration Status: adequate Cardiopulmonary Status: stable Mental Status/LOC: patient returned to baseline Follow-up Care/Observations: n/a Post-Anesthesia Complications: none Follow-up care needed: N/A Ronaldo rKuger MD Jan 10, 2020 13:59
--- NOTE | 2020-01-10 14:07 | Endoscopy Procedure Note ---
Endoscopy Procedure Note General Indication for Procedure: dysphgaia Procedures Performed: EGD, PEG Operative Findings/Diagnosis: same Specimen: none Pt Tolerated Procedure Well: Yes Estimated Blood Loss: none Anesthesia Anesthesiologist: maribel Anesthesia: MAC Inserted Devices Implant(s) used?: No GI Core Measures 50 yrs or older w/o bx or poly: Not Applicable 10yrs. F/U recommended: Not Applicable Mervni Victoria MD Jan 10, 2020 14:07
[2020-01-10] MEDS ORDERED: NS 275ml ONE ×2 (14:19→14:26)
[2020-01-10] MEDS ORDERED: Tubing Blood Filter IV ONE (14:19)
--- NOTE | 2020-01-10 15:45 | Procedure Note ---
DATE OF PROCEDURE: 01/10/2020 SURGEON: Mervin Victoria MD. PROCEDURE: Upper endoscopy with G-tube placement. ANESTHESIA: Per RESERVOIR CARETAKER, Barbara Tarrillion. INSTRUMENT: Olympus adult flexible upper endoscope. INDICATIONS: Dysphagia. REASON FOR PROCEDURE: The procedure, risks, benefits, and possible consequences, including hemorrhage, aspiration, perforation and infection, and alternative treatments, were explained to the patient/legal guardian by Dr. Mervin Victoria and the patient/legal guardian understood and accepted these risks. DESCRIPTION OF PROCEDURE: After informed consent was obtained and the patient was adequately sedated, Olympus upper endoscope was advanced from mouth into the second portion of the duodenum and retroflexion was performed in the stomach. Then, under endoscopic guidance and under sterile condition, a 20-Macedonian pull type of G-tube was successfully placed in the epigastric area. The distance from the tip of the tube to skin was about 2.5 cm in size. The patient tolerated the procedure very well without any complication. SUMMARY OF FINDINGS: Status post successful PEG placement. RECOMMENDATIONS: Abdominal binder. Elevate the head of the bed at all times. G-tube flush. G-tube care. Start tube feeding later today. I want to thank Dr. Dumont for this kind referral. Mervin Victoria M.D. DR: BARBIE JOB#: [id number] CC: Benjamin Dumont MD.; Fax#: [phone]
--- NOTE | 2020-01-10 16:00 | NUR ---
NURSE NOTES: Patient stable now and restless.
--- NOTE | 2020-01-10 17:07 | Infectious Diseases Prog Note ---
Assessment/Plan Assessment/Plan ASSESSMENT AND PLAN: 1. MDR acinetobacter pna - S-minocycline, I-colistin, polymyxin hx esbl e.coli uti/pyelonephritis, sepsis, leukocytosis, fevers mrsa and vre colonization, NATALIE, respiratory distress/failure Fungemia - + yeast in blood - ID still pending hx mrsa pna/acinetobacter pna hx VRE uti covid-19 infection right leg swelling and redness noted, ? cellulitis, ? infected hematoma, ? wound infection - minocycline started today - s/p micafungin - surveillance cultures - bc - neg, uc-neg, sc-acinetobacter - s/p remdesivir, on dexamethasone - monitor labs and chest x-ray - ? debridement right leg per surgery when patient stable - d/w pharmacy 2. Chronic kidney failure, acute renal failure. 3. COPD. 4. Pulmonary followup. 5. Renal followup. 6. History of falls. 7. Atrial fibrillation. Cardiology followup. 8. Obesity. 9. Gait disorder. 10. Schizophrenia. 11. Homeless. 12. Allergic to erythromycin, haloperidol, and vancomycin. 13. Social history is negative. 14. Family history is noncontributory. 15. MAR is noted. 16. Case discussed with RN. 17. Continue treatment per Dr. Dumont and consultants. Subjective Constitutional: Reports: other - on vent ; Denies: fever HEENT: Reports: congestion Respiratory: Reports: shortness of breath Cardiovascular: Denies: chest pain Gastrointestinal/Abdominal: Denies: nausea, vomiting, diarrhea Genitourinary: Reports: other Neurologic: Reports: other - opens eyes Psychiatric: Reports: other - N Skin: Denies: rash Hematologic: Denies: bleeding - Musculoskeletal: Reports: other - NA Allergies: Coded Allergies: ERYTHROMYCIN BASE (Verified Allergy, Severe, 12/12/19) HALOPERIDOL (Verified Allergy, Unknown, 12/12/19) VANCOMYCIN (Unverified Adverse Reaction, Intermediate, Shortness of Breath, 12/12/19) Objective Last 24 Hour Vital Signs Date Time Temp Pulse Resp B/P (MAP) Pulse Ox O2 Delivery O2 Flow Rate FiO2 01/10/20 16:00 123 01/10/20 16:00 136 23 131/111 (118) 90 01/10/20 15:00 120 23 123/75 (91) 90 01/10/20 14:00 96 18 93/57 (69) 100 01/10/20 13:59 82 20 97 01/10/20 13:00 99.2 95 18 97/53 (68) 100 01/10/20 12:38 80 18 98 01/10/20 12:00 Mechanical Ventilator 01/10/20 12:00 40 01/10/20 12:00 90 01/10/20 12:00 92 18 94/50 (65) 100 01/10/20 11:15 19 84/55 Endotracheal Tube 40 01/10/20 11:00 81 18 78/52 (61) 100 01/10/20 11:00 18 77/50 Endotracheal Tube 40 01/10/20 10:53 18 89/60 Endotracheal Tube 40 01/10/20 10:52 18 89/60 40 01/10/20 10:30 86 18 86/45 (59) 100 01/10/20 10:00 88 18 88/52 (64) 100 01/10/20 10:00 18 93/58 Endotracheal Tube 40 01/10/20 09:30 91 18 95/68 (77) 100 01/10/20 09:00 100 18 99/56 (70) 100 01/10/20 09:00 18 99/56 Endotracheal Tube 40 01/10/20 08:50 116 109/65 01/10/20 08:30 111 18 113/63 (80) 100 01/10/20 08:00 40 01/10/20 08:00 112 01/10/20 08:00 18 115/68 Endotracheal Tube 40 01/10/20 08:00 Mechanical Ventilator 01/10/20 08:00 112 18 115/68 (84) 100 01/10/20 07:30 107 18 98/58 (71) 99 01/10/20 07:30 115 19 40 01/10/20 07:00 133 19 103/86 (92) 93 01/10/20 07:00 18 95/63 Endotracheal Tube 40 01/10/20 06:30 142 19 133/67 (89) 91 01/10/20 06:30 20 133/67 Mechanical Ventilator 40 01/10/20 06:15 147 17 130/82 (98) 93 01/10/20 06:15 21 130/82 Mechanical Ventilator 40 01/10/20 06:08 100.7 01/10/20 06:00 21 102/89 Mechanical Ventilator 40 01/10/20 06:00 151 19 102/89 (93) 94 01/10/20 05:45 150 21 132/67 (88) 76 01/10/20 05:45 22 132/67 Mechanical Ventilator 40 01/10/20 05:37 155 138/66 01/10/20 05:30 158 23 138/66 (90) 93 01/10/20 05:30 21 138/66 Mechanical Ventilator 40 01/10/20 05:00 143 19 129/49 (75) 92 01/10/20 05:00 23 129/49 Mechanical Ventilator 40 01/10/20 04:00 101.4 142 22 118/90 (99) 81 01/10/20 04:00 40 01/10/20 04:00 Mechanical Ventilator 01/10/20 04:00 21 118/90 Mechanical Ventilator 40 01/10/20 03:11 126 01/10/20 03:00 127 21 88/67 (74) 98 01/10/20 03:00 21 88/67 Mechanical Ventilator 40 01/10/20 02:39 126 28 40 01/10/20 02:00 103 12 116/55 (75) 99 01/10/20 02:00 12 115/61 Mechanical Ventilator 40 01/10/20 01:00 10 116/53 Mechanical Ventilator 40 01/10/20 01:00 105 15 117/58 (77) 99 01/10/20 00:00 Mechanical Ventilator 01/10/20 00:00 18 110/56 Mechanical Ventilator 40 01/10/20 00:00 97.9 100 18 103/55 (71) 100 01/09/20 23:08 100 01/09/20 23:00 96 19 109/56 (73) 99 01/09/20 23:00 18 113/56 Mechanical Ventilator 40 01/09/20 22:30 104 21 40 01/09/20 22:00 106 17 114/54 (74) 100 01/09/20 22:00 18 112/56 Mechanical Ventilator 40 01/09/20 21:38 111 107/60 01/09/20 21:00 118 18 122/54 (76) 99 01/09/20 21:00 17 122/54 Mechanical Ventilator 40 01/09/20 20:45 19 122/68 Mechanical Ventilator 40 01/09/20 20:45 135 23 122/68 (86) 98 01/09/20 20:30 19 132/66 Mechanical Ventilator 40 01/09/20 20:30 134 19 132/66 (88) 99 01/09/20 20:24 124 14 107/71 (83) 99 01/09/20 20:15 120 13 84/72 (76) 100 01/09/20 20:15 18 84/72 Mechanical Ventilator 40 01/09/20 20:10 123 121/59 01/09/20 20:00 40 01/09/20 20:00 11 121/59 Mechanical Ventilator 40 01/09/20 20:00 Mechanical Ventilator 01/09/20 20:00 98.5 122 9 121/59 (79) 100 01/09/20 19:35 112 01/09/20 19:20 145 26 40 01/09/20 19:00 139 21 135/60 (85) 100 01/09/20 19:00 21 135/60 Endotracheal Tube 40 01/09/20 18:45 21 135/68 Endotracheal Tube 40 01/09/20 18:30 138 24 109/49 (69) 100 01/09/20 18:30 21 109/49 Endotracheal Tube 40 01/09/20 18:15 21 112/72 Endotracheal Tube 40 01/09/20 18:15 130 21 112/72 (85) 75 01/09/20 18:00 144 23 92/80 (84) 77 01/09/20 18:00 22 92/80 Endotracheal Tube 40 01/09/20 17:45 131 24 121/74 (90) 01/09/20 17:30 124 23 130/72 (91) 94 01/09/20 17:15 123 21 110/81 (91) 96 01/09/20 17:08 22 106/75 Endotracheal Tube 40 01/09/20 17:00 109 18 106/75 (85) 99 Height (Feet): 5 Height (Inches): 6.00 Weight (Pounds): 343 General Appearance: no acute distress HEENT: normocephalic, atraumatic, anicteric Respiratory/Chest: crackles/rales, rhonchi - bilaterally Cardiovascular: normal rate, regular rhythm, no gallop/murmur Abdomen: normal bowel sounds, soft, non tender, no organomegaly, non distended Genitourinary: other - + trivedi Extremities: no cyanosis, other - right leg swelling noted Skin: no rash Neurologic/Psychiatric: other - weak but alert Lymphatic: no neck adenopathy Musculoskeletal: no effusion Chest x-ray - 11/17/19 - Procedure: XRAY Chest 1v Indication: Shortness of breath Technique: One view of the chest Comparison: 12/17/2019 Findings: The heart is enlarged. There is bilateral interstitial and airspace disease is again demonstrated, probably unchanged allowing for differences in degree of inspiration. Impression: Unchanged, over one day, findings as above. Chest x-ray - 12/21/19 - Procedure: XRAY Chest 1v Indication: Shortness of breath Technique: One view of the chest Comparison: 12/19/2019 Findings: The heart is enlarged. Bilateral extensive infiltrates are again demonstrated, stable to slightly worse allowing for differences in exposure technique. There is suggestion of increasing pleural fluid on the left. Nasogastric tube is again demonstrated. Impression: Stable to worsened bilateral extensive infiltrates, since exam of 2 days prior Increasing left pleural effusion Chest x-ray - 12/23/19 - IMPRESSION: 1. No significant interval change from the prior chest x-ray. 2. Persistent moderate left pleural effusion and mild right pleural effusion. 3. Pulmonary vascular congestion. 4. Persistent opacity in the left lung base, which may represent atelectasis versus pneumonia. Chest x-ray - 12/25/19 - Procedure: XRAY Chest 1v Procedure: XRAY Chest 1v Reason for study: Reason For Exam: SOB Comparison films: 12/24/2019. FINDINGS: The tracheal tube and NG tube remain in place. Vascular prominence and bilateral hazy alveolar densities are unchanged. Cardiomegaly and small effusions also unchanged. The bony thorax appear unremarkable. IMPRESSION: NO SIGNIFICANT CHANGE COMPARED TO PREVIOUS EXAM. 12/26/19 - Procedure: XRAY Chest 1v Procedure: XRAY Chest 1v Reason for study: Reason For Exam: SOB Comparison films: 12/25/2019. FINDINGS: Endotracheal tube and NG tube remain in place. Hazy bilateral alveolar densities are essentially unchanged given the difference in technique. Cardiomegaly and right effusion again noted. The bony thorax appear unremarkable. IMPRESSION: NO SIGNIFICANT CHANGE COMPARED TO PREVIOUS EXAM. Chest x-ray - 12/28/19 - Procedure: XRAY Chest 1v Indication: Reason For Exam: SOB Technique: Single AP view of the chest. Comparison: Chest radiograph dated 12/27/2019 Findings: Exam is again noted to be diagnostically limited due to underpenetration, patient rotation, and exclusion of part of the left hemithorax from the [id number]. Within these limitations: No significant change in appearance of visualized cardiomediastinal silhouette. Unchanged layering right pleural effusion with associated basilar airspace opaci ties. Likely retrocardiac consolidation, unchanged. No apical pneumothoraces. Unchanged enteric and endotracheal tubes. Unchanged left PICC. Chest x-ray - 12/30/19 - FINDINGS: Distal tip of ET tube is above devika. Distal tip of the enteric tube is in stomach. Stable left arm PICC line with distal tip likely in the left subclavian vein. Cardiac silhouette is within normal limits allowing for portable and rotated technique. Low lung volumes with elevated left hemidiaphragm. Again noted is a moderate right effusion with patchy infiltrates in the right mid to lower lung. Probable retrocardiac infiltrates. IMPRESSION: Little interval change in moderate right effusion and pneumonia/aspiration. Suspected retrocardiac infiltrate. The distal tip of the left arm PICC line is not well seen past the level of the left mid subclavian vein. [place] location is in the cavoatrial junction. Recommend advancement. <MYCVCSECTION> Chest x-ray - 01/04/20 - Procedure: XRAY Chest 1v Indication: Dyspnea Technique: One view of the chest Comparison: 01/02/2020 Findings: Bilateral interstitial and airspace congestion, right pleural effusion, cardiomegaly persists, unchanged. Tube and line positions are unchanged Impression: Unchanged, over one day, findings as above. Chest x-ray - 01/06/20 - IMPRESSION: 1. Endotracheal tube terminates in the region of the lower thoracic trachea, approximately 2.6 cm above the devika. Enteric tube is difficult to visualize distally. 2. Similar opacities predominantly in the mid and lower lungs which may represent combination of pleural effusions and atelectasis versus pneumonia versus edema. Chest x-ray - 01/07/20 - Procedure: XRAY Chest 1v Indication: Shortness of breath Technique: One view of the chest Comparison: 01/06/2020 Findings: Stable satisfactory positions of endotracheal and orogastric tubes. Mild interstitial congestion and hazy ankle opacities are again demonstrated bilater ally. There appears to be a small amount of pleural fluid bilaterally, probably unchanged. Impression: Unchanged, over one day, findings as above. Chest x-ray - 01/10/20 - Procedure: XRAY Chest 1v Indication: There is a breath Technique: One view of the chest Comparison: 01/08/2020 Findings: Interim conversion of endotracheal tube to a tracheostomy, appearing well positioned. Orogastric tube remains. Bilateral interstitial and airspace infiltrates versus edema persists, unchanged. Small bilateral pleural effusions persist, unchanged. Impression: Interim tracheostomy placement. No radiographically evident complication Stable bilateral pleural and parenchymal disease Microbiology Date/Time Source Procedure Growth Status 01/08/20 18:25 Indwelling Cath Urine Culture - Preliminary NO GROWTH AFTER 24 HOURS Resulted 01/08/20 18:25 Sputum Induced Gram Stain - Final Resulted 01/08/20 18:25 Sputum Induced Sputum Culture - Preliminary NORMAL UPPER RESPIRATORY NIKOLAS AT 24 ... Resulted 01/08/20 15:15 Blood Blood Culture - Preliminary NO GROWTH AFTER 24 HOURS Resulted Laboratory Tests Test 01/09/20 23:35 01/10/20 04:00 01/10/20 05:33 01/10/20 14:30 POC Whole Blood Glucose Pending Pending White Blood Count 3.0 K/UL (4.8-10.8) L Red Blood Count 2.62 M/UL (4.20-5.40) L Hemoglobin 7.7 G/DL (12.0-16.0) L Hematocrit 23.4 % (37.0-47.0) L Mean Corpuscular Volume 89 FL (80-99) Mean Corpuscular Hemoglobin 29.3 PG (27.0-31.0) Mean Corpuscular Hemoglobin Concent 32.8 G/DL (32.0-36.0) Red Cell Distribution Width 20.5 % (11.6-14.8) H Platelet Count 91 K/UL (150-450) L Mean Platelet Volume 7.8 FL (6.5-10.1) Neutrophils (%) (Auto) % (45.0-75.0) Lymphocytes (%) (Auto) % (20.0-45.0) Monocytes (%) (Auto) % (1.0-10.0) Eosinophils (%) (Auto) % (0.0-3.0) Basophils (%) (Auto) % (0.0-2.0) Differential Total Cells Counted 100 Neutrophils % (Manual) 61 % (45-75) Lymphocytes % (Manual) 27 % (20-45) Monocytes % (Manual) 7 % (1-10) Eosinophils % (Manual) 2 % (0-3) Basophils % (Manual) 1 % (0-2) Band Neutrophils 2 % (0-8) Nucleated Red Blood Cells 3 /100 WBC Platelet Estimate Decreased L Platelet Morphology Normal Hypochromasia 3+ Anisocytosis 2+ Spherocytes 1+ Sodium Level 139 MMOL/L (136-145) Potassium Level 3.8 MMOL/L (3.5-5.1) Chloride Level 105 MMOL/L (98-107) Carbon Dioxide Level 29 MMOL/L (21-32) Anion Gap 5 mmol/L (5-15) Blood Urea Nitrogen 39 mg/dL (7-18) H Creatinine 1.8 MG/DL (0.55-1.30) H Estimat Glomerular Filtration Rate 28.0 mL/min (>60) Glucose Level 130 MG/DL (74-106) H Calcium Level 8.0 MG/DL (8.5-10.1) L Cortisol Pending Current Medications Medications (Trade) Dose Ordered Sig/Shiraz Route PRN Reason Start Time Stop Time Status Last Admin Dose Admin Acetaminophen (Tylenol) 650 mg Q4H PRN NG Mild Pain (Pain Scale 1-3) 12/22/19 16:00 01/11/20 22:14 01/06/20 12:42 Acetaminophen (Tylenol) 650 mg Q4H PRN NG Temp >100.5 12/22/19 16:00 01/11/20 22:14 01/10/20 05:38 Acetazolamide (Diamox) 500 mg TWICE A DAY NG 01/02/20 18:00 02/01/20 17:59 01/10/20 08:50 Albuterol Sulfate (Proventil MDI) 2 puff Q4H PRN INH Shortness of Breath 12/24/19 10:30 03/23/20 10:29 Bacitracin (Bacitracin) 2 applic EVERY 12 HOURS TOPIC 01/06/20 21:00 03/12/20 08:59 01/10/20 08:52 Chlorhexidine Gluconate (Jessie-Hex 2%) 1 applic DAILY@1999 TOPIC 12/24/19 20:00 03/23/20 19:59 9/30/20 20:09 Chlorpromazine (Thorazine) 50 mg Q6H PRN IM agitation 12/30/19 02:30 01/29/20 02:29 01/10/20 16:07 Clotrimazole (Lotrimin) 1 applic EVERY 12 HOURS TOPIC 01/05/20 09:00 03/12/20 08:59 01/10/20 08:52 Dextrose (Dextrose 50%) 25 ml Q30M PRN IV Hypoglycemia 12/23/19 10:45 03/22/20 10:44 Dextrose (Dextrose 50%) 50 ml Q30M PRN IV Hypoglycemia 12/23/19 10:45 03/22/20 10:44 Diltiazem HCl (Cardizem Tab) 60 mg Q8HR NG 01/06/20 16:15 02/05/20 16:14 01/10/20 05:37 Docusate Sodium (Colace) 100 mg BID NG 12/25/19 09:00 01/24/20 08:59 01/10/20 08:51 Fentanyl Citrate 250 ml @ 0 mls/hr Q24H IV 01/10/20 10:42 01/12/20 10:41 01/10/20 10:53 Furosemide (Lasix) 100 mg Q6HR IV 01/05/20 12:00 01/30/20 11:59 01/10/20 05:38 Insulin Aspart (NovoLOG) EVERY 6 HOURS SUBQ 01/05/20 06:00 03/22/20 11:29 01/08/20 23:30 Magnesium Hydroxide (Mom) 30 ml HSPRN PRN NG Constipation 12/22/19 15:15 01/21/20 15:14 01/02/20 22:20 Metoclopramide HCl (Reglan) 5 mg Q6H IVP 01/05/20 09:15 02/04/20 09:14 01/10/20 14:33 Metoprolol Tartrate (Lopressor) 50 mg Q12HR NG 12/22/19 21:00 03/18/20 20:59 01/10/20 08:50 Minocycline HCl (Minocin) 100 mg Q12HR ORAL 01/10/20 21:00 01/17/20 20:59 Nitroglycerin (Ntg) 0.4 mg Q5M PRN SL Prn Chest Pain 12/22/19 15:00 01/11/20 22:14 Ondansetron HCl (Zofran) 4 mg Q6H PRN IVP Nausea & Vomiting 12/22/19 15:15 01/11/20 15:14 Pantoprazole (Protonix) 40 mg EVERY 12 HOURS IVP 01/01/20 21:00 01/31/20 20:59 01/10/20 08:51 Polyethylene Glycol (Miralax) 17 gm BEDTIME NG 12/22/19 21:00 01/18/20 20:59 01/09/20 20:10 Potassium Chloride (K-Dur) 40 meq EVERY 12 HOURS NG 01/05/20 11:45 04/04/20 11:14 01/10/20 08:51 Quetiapine Fumarate (SEROqueL) 100 mg EVERY 8 HOURS ORAL 01/04/20 22:00 02/16/20 21:59 01/10/20 05:37 Aleisha Coronel MD Jan 10, 2020 17:07
[2020-01-10] MEDS ORDERED: Midazolam 2mg/2ml Inj IVP ONE ×2 (17:15→18:00)
--- NOTE | 2020-01-10 18:00 | NUR ---
NURSE NOTES: Vital signs consistantly stable. Can now give versed.
[2020-01-10] MEDS: Midazolam 2mg/2ml Inj IVP PRN ×2 (18:04→20:08)
--- NOTE | 2020-01-10 19:10 | NUR ---
NURSE HAND-OFF REPORT: Latest Vital Signs: Temperature 99.8 , Pulse 125 , B/P 117 /76 , Respiratory Rate 22 , O2 SAT 100 , Trach Collar, O2 Flow Rate . Vital Sign Comment: STABLE EKG Rhythm: Atrial Fibrillation Rhythm change?: N Notified?: N -MD Gaviota UNDERWOOD Response: Latest Abreu Fall Score: 75 Fall Risk: High Risk Safety Measures: Call light Within Reach, Bed Alarm Zone 1, Side Rails Side Rails x3, Bed position Low and Locked. Fall Precautions: Yellow Socks Yellow Gown Door Sign Patient Fall Education Report given to Bre COHEN. Plan of care edorsed. HR elevated but improved. BP stable now. Endorsed that patient became hypotesive during the day.
--- NOTE | 2020-01-10 20:00 | NUR ---
NURSE NOTES: Patient is trach'd. Shiley 8 to vent setting of AC:18, TV:600, FiO2:40%, PEEP:5, O2sat:100%. Newly inserted PEG this afternoon running Vital AF @ 45ml/hr. Lockett catheter in place and draining. Right leg ulcer dressing dry and intact and awaiting wound consult. STEEPLECHASE JOCKEY restraints in place for safety and prevent from pulling on lines and tubing; ROM and skin assessed. cooling blanket is on. Isolation precautions noted. Will continue plan of care.
[2020-01-10] MEDS: Dyna-Hex 2% Top Sol 2oz TOPIC SCH (20:08)
[2020-01-10] MEDS: Miralax 17gm pkt NG SCH (20:08)
[2020-01-10] MEDS: Minocycline HCl 50mg cap ORAL SCH (20:09)
--- NOTE | 2020-01-10 21:33 | Cardiology Progress Note ---
Subjective DATE OF SERVICE: Jan 10, 2020 Doing poorly - remains in ICU in critical condition with guarded prognosis. Remains on vent support - failed weaning trials; now s/p trach BP range remaining low normal range. Remains COVID19 positive. Monitor: AFIb Persisting respiratory acidosis req'd intubation and mech ventilation - remains far from weaning. Had coffee ground material in NGTube and hematoma on right leg; anti-coagulation discont'd Venous Duplex: negative for DVT Renal fxn and free water deficit correcting CXR (01/10/20) unchg'd bilateral infiltrates and eff'n - s/p trach Objective Last 24 Hour Vital Signs Date Time Temp Pulse Resp B/P (MAP) Pulse Ox O2 Delivery O2 Flow Rate FiO2 01/10/20 21:00 110 24 108/56 (73) 100 01/10/20 20:09 202 162/143 01/10/20 20:00 40 01/10/20 20:00 Mechanical Ventilator 01/10/20 20:00 100.5 161 25 162/143 (149) 100 01/10/20 19:16 132 27 40 01/10/20 19:00 125 22 117/76 (90) 100 01/10/20 18:00 125 24 111/61 (78) 100 01/10/20 17:00 124 23 158/128 (138) 90 01/10/20 16:00 Trach Collar 01/10/20 16:00 123 01/10/20 16:00 136 23 131/111 (118) 90 01/10/20 16:00 40 01/10/20 16:00 99.8 01/10/20 15:01 116 23 40 01/10/20 15:00 120 23 123/75 (91) 90 01/10/20 14:00 96 18 93/57 (69) 100 01/10/20 13:59 82 20 97 01/10/20 13:00 99.2 95 18 97/53 (68) 100 01/10/20 12:38 80 18 98 01/10/20 12:15 88 18 76/57 (63) 100 01/10/20 12:00 Mechanical Ventilator 01/10/20 12:00 40 01/10/20 12:00 90 01/10/20 12:00 92 18 94/50 (65) 100 01/10/20 11:45 85 19 76/52 (60) 100 01/10/20 11:30 87 18 88/54 (65) 100 01/10/20 11:29 84 19 86/47 (60) 100 01/10/20 11:15 19 84/55 Endotracheal Tube 40 01/10/20 11:15 85 18 84/55 (65) 100 01/10/20 11:12 114 19 40 01/10/20 11:00 81 18 78/52 (61) 100 01/10/20 11:00 85 18 77/50 (59) 100 01/10/20 11:00 18 77/50 Endotracheal Tube 40 01/10/20 10:53 18 89/60 Endotracheal Tube 40 01/10/20 10:53 86 18 89/60 (70) 100 01/10/20 10:52 18 89/60 40 01/10/20 10:30 86 18 86/45 (59) 100 01/10/20 10:00 88 18 88/52 (64) 100 01/10/20 10:00 18 93/58 Endotracheal Tube 40 01/10/20 09:30 91 18 95/68 (77) 100 01/10/20 09:00 100 18 99/56 (70) 100 01/10/20 09:00 18 99/56 Endotracheal Tube 40 01/10/20 08:50 116 109/65 01/10/20 08:30 111 18 113/63 (80) 100 01/10/20 08:00 40 01/10/20 08:00 112 01/10/20 08:00 18 115/68 Endotracheal Tube 40 01/10/20 08:00 Mechanical Ventilator 01/10/20 08:00 112 18 115/68 (84) 100 01/10/20 07:30 107 18 98/58 (71) 99 01/10/20 07:30 115 19 40 01/10/20 07:00 133 19 103/86 (92) 93 01/10/20 07:00 18 95/63 Endotracheal Tube 40 01/10/20 06:30 142 19 133/67 (89) 91 01/10/20 06:30 20 133/67 Mechanical Ventilator 40 01/10/20 06:15 147 17 130/82 (98) 93 01/10/20 06:15 21 130/82 Mechanical Ventilator 40 01/10/20 06:08 100.7 01/10/20 06:00 21 102/89 Mechanical Ventilator 40 01/10/20 06:00 151 19 102/89 (93) 94 01/10/20 05:45 150 21 132/67 (88) 76 01/10/20 05:45 22 132/67 Mechanical Ventilator 40 01/10/20 05:37 155 138/66 01/10/20 05:30 158 23 138/66 (90) 93 01/10/20 05:30 21 138/66 Mechanical Ventilator 40 01/10/20 05:00 143 19 129/49 (75) 92 01/10/20 05:00 23 129/49 Mechanical Ventilator 40 01/10/20 04:00 101.4 142 22 118/90 (99) 81 01/10/20 04:00 40 01/10/20 04:00 Mechanical Ventilator 01/10/20 04:00 21 118/90 Mechanical Ventilator 40 01/10/20 03:11 126 01/10/20 03:00 127 21 88/67 (74) 98 01/10/20 03:00 21 88/67 Mechanical Ventilator 40 01/10/20 02:39 126 28 40 01/10/20 02:00 103 12 116/55 (75) 99 01/10/20 02:00 12 115/61 Mechanical Ventilator 40 01/10/20 01:00 10 116/53 Mechanical Ventilator 40 01/10/20 01:00 105 15 117/58 (77) 99 01/10/20 00:00 Mechanical Ventilator 01/10/20 00:00 18 110/56 Mechanical Ventilator 40 01/10/20 00:00 97.9 100 18 103/55 (71) 100 01/09/20 23:08 100 01/09/20 23:00 96 19 109/56 (73) 99 01/09/20 23:00 18 113/56 Mechanical Ventilator 40 01/09/20 22:30 104 21 40 01/09/20 22:00 106 17 114/54 (74) 100 01/09/20 22:00 18 112/56 Mechanical Ventilator 40 01/09/20 21:38 111 107/60 ROS: unchanged from 12/12/19 HEENT: Orally intubated, Mechanically Ventilated, Thin secretions ET Tube, other - NGtube RHYTHM: NSR, ST LUNGS: diminished breath sounds, right-sided rhonchi CARDIAC: normal S1 and S2, irregularly irregular ABDOMEN: other - obese EXTREMITIES: moderate edema - mostly non pitting, other - hematoma right leg Laboratory Tests Test 01/09/20 23:35 01/10/20 04:00 01/10/20 05:33 01/10/20 14:30 POC Whole Blood Glucose Pending Pending White Blood Count 3.0 K/UL (4.8-10.8) L Red Blood Count 2.62 M/UL (4.20-5.40) L Hemoglobin 7.7 G/DL (12.0-16.0) L Hematocrit 23.4 % (37.0-47.0) L Mean Corpuscular Volume 89 FL (80-99) Mean Corpuscular Hemoglobin 29.3 PG (27.0-31.0) Mean Corpuscular Hemoglobin Concent 32.8 G/DL (32.0-36.0) Red Cell Distribution Width 20.5 % (11.6-14.8) H Platelet Count 91 K/UL (150-450) L Mean Platelet Volume 7.8 FL (6.5-10.1) Neutrophils (%) (Auto) % (45.0-75.0) Lymphocytes (%) (Auto) % (20.0-45.0) Monocytes (%) (Auto) % (1.0-10.0) Eosinophils (%) (Auto) % (0.0-3.0) Basophils (%) (Auto) % (0.0-2.0) Differential Total Cells Counted 100 Neutrophils % (Manual) 61 % (45-75) Lymphocytes % (Manual) 27 % (20-45) Monocytes % (Manual) 7 % (1-10) Eosinophils % (Manual) 2 % (0-3) Basophils % (Manual) 1 % (0-2) Band Neutrophils 2 % (0-8) Nucleated Red Blood Cells 3 /100 WBC Platelet Estimate Decreased L Platelet Morphology Normal Hypochromasia 3+ Anisocytosis 2+ Spherocytes 1+ Sodium Level 139 MMOL/L (136-145) Potassium Level 3.8 MMOL/L (3.5-5.1) Chloride Level 105 MMOL/L (98-107) Carbon Dioxide Level 29 MMOL/L (21-32) Anion Gap 5 mmol/L (5-15) Blood Urea Nitrogen 39 mg/dL (7-18) H Creatinine 1.8 MG/DL (0.55-1.30) H Estimat Glomerular Filtration Rate 28.0 mL/min (>60) Glucose Level 130 MG/DL (74-106) H Calcium Level 8.0 MG/DL (8.5-10.1) L Cortisol Pending Microbiology Date/Time Source Procedure Growth Status 01/08/20 18:25 Indwelling Cath Urine Culture - Preliminary NO GROWTH AFTER 24 HOURS Resulted 01/08/20 18:25 Sputum Induced Gram Stain - Final Resulted 01/08/20 18:25 Sputum Induced Sputum Culture - Preliminary NORMAL UPPER RESPIRATORY NIKOLAS AT 24 ... Resulted 01/08/20 15:15 Blood Blood Culture - Preliminary NO GROWTH AFTER 24 HOURS Resulted Assessment/Plan Assessment/Plan CRITICAL AND GUARDED Acute respiratory failure - s/p trach Acute on chronic respiratory acidosis AFiB with labile heart rates CHF, ac/chr diastolic BLE edema Sepsis with shock obesity COPD with bronchospasm Acute renal failure - worsening Pleural effusion GI bleeding Anemia - multifactorial, now worse Covid 19 PNA Hypokalemia Dehydration/hypernatremia corrected Hypertension/HHD with labile BP - now stable range. Vent support PRBC transfusion for hb below 7gm/dl Monitor acid/base parameters. Antimicrobials Titrate rate-control meds -advance diltiazem and metoprolol with hold parameters for low BP. IV bolus dose ordered tonite. DC apixaban - hold anticoagulation due to GI bleeding; resume with GI clearance. Continued night monitor Diuresis based on clinical parameters; trend BNP Potassium and free water suppl as needed Agree with DNR Jerome Meek MD Jan 10, 2020 21:33
[2020-01-10] MEDS ORDERED: dilTIAZem HCl 25mg/5ml Inj IVP SCH (21:45)
--- NOTE | 2020-01-10 22:00 | NUR ---
NURSE NOTES: 20mg cardizem IVP given one time per MD orders. cardiac monitoring recorded during IVP and post administration- printed and placed into chart. Current HR:80 remains in A-Fib
--- NOTE | 2020-01-10 23:36 | Psych Consult Progress Note ---
Psychiatry Progress Note Psychiatry Progress Note Subjective cont to be agitated and on bilat restraints. the pt was lethargic during my eval Medications Current Medications Medications (Trade) Dose Ordered Sig/Shiraz Route PRN Reason Start Time Stop Time Status Last Admin Dose Admin Acetaminophen (Tylenol) 650 mg Q4H PRN NG Mild Pain (Pain Scale 1-3) 12/22/19 16:00 01/11/20 22:14 01/06/20 12:42 Acetaminophen (Tylenol) 650 mg Q4H PRN NG Temp >100.5 12/22/19 16:00 01/11/20 22:14 01/10/20 05:38 Acetazolamide (Diamox) 500 mg TWICE A DAY NG 01/02/20 18:00 02/01/20 17:59 01/10/20 08:50 Albuterol Sulfate (Proventil MDI) 2 puff Q4H PRN INH Shortness of Breath 12/24/19 10:30 03/23/20 10:29 Bacitracin (Bacitracin) 2 applic EVERY 12 HOURS TOPIC 01/06/20 21:00 03/12/20 08:59 01/10/20 20:11 Chlorhexidine Gluconate (Jessie-Hex 2%) 1 applic DAILY@1999 TOPIC 12/24/19 20:00 03/23/20 19:59 01/10/20 20:08 Chlorpromazine (Thorazine) 50 mg Q6H PRN IM agitation 12/30/19 02:30 01/29/20 02:29 01/10/20 16:07 Clotrimazole (Lotrimin) 1 applic EVERY 12 HOURS TOPIC 01/05/20 09:00 03/12/20 08:59 01/10/20 20:12 Dextrose (Dextrose 50%) 25 ml Q30M PRN IV Hypoglycemia 12/23/19 10:45 03/22/20 10:44 Dextrose (Dextrose 50%) 50 ml Q30M PRN IV Hypoglycemia 12/23/19 10:45 03/22/20 10:44 Diltiazem HCl (Cardizem Tab) 60 mg Q6HR NG 01/11/20 00:00 02/10/20 00:00 01/10/20 23:27 Docusate Sodium (Colace) 100 mg BID NG 12/25/19 09:00 01/24/20 08:59 01/10/20 08:51 Fentanyl Citrate 250 ml @ 0 mls/hr Q24H IV 01/10/20 10:42 01/12/20 10:41 01/10/20 10:53 Furosemide (Lasix) 100 mg Q6HR IV 01/05/20 12:00 01/30/20 11:59 01/10/20 23:27 Insulin Aspart (NovoLOG) EVERY 6 HOURS SUBQ 01/05/20 06:00 03/22/20 11:29 01/08/20 23:30 Magnesium Hydroxide (Mom) 30 ml HSPRN PRN NG Constipation 12/22/19 15:15 01/21/20 15:14 01/02/20 22:20 Metoclopramide HCl (Reglan) 5 mg Q6H IVP 01/05/20 09:15 02/04/20 09:14 01/10/20 20:08 Metoprolol Tartrate (Lopressor) 50 mg Q12HR NG 12/22/19 21:00 03/18/20 20:59 01/10/20 20:09 Midazolam HCl (Versed 2mg/2ml vial) 2 mg Q1H PRN IVP Agitation 01/10/20 17:15 01/17/20 17:14 01/10/20 20:08 Minocycline HCl (Minocin) 100 mg Q12HR ORAL 01/10/20 21:00 01/17/20 20:59 01/10/20 20:09 Nitroglycerin (Ntg) 0.4 mg Q5M PRN SL Prn Chest Pain 12/22/19 15:00 01/11/20 22:14 Ondansetron HCl (Zofran) 4 mg Q6H PRN IVP Nausea & Vomiting 12/22/19 15:15 01/11/20 15:14 Pantoprazole (Protonix) 40 mg EVERY 12 HOURS IVP 01/01/20 21:00 01/31/20 20:59 01/10/20 20:08 Polyethylene Glycol (Miralax) 17 gm BEDTIME NG 12/22/19 21:00 01/18/20 20:59 01/10/20 20:08 Potassium Chloride (K-Dur) 40 meq EVERY 12 HOURS NG 01/05/20 11:45 04/04/20 11:14 01/10/20 20:10 Quetiapine Fumarate (SEROqueL) 100 mg EVERY 8 HOURS ORAL 01/04/20 22:00 02/16/20 21:59 01/10/20 21:52 Neurological/Psychiatric: Reports: anxiety, depressed, emotional problems Allergies: Coded Allergies: ERYTHROMYCIN BASE (Verified Allergy, Severe, 12/12/19) HALOPERIDOL (Verified Allergy, Unknown, 12/12/19) VANCOMYCIN (Unverified Adverse Reaction, Intermediate, Shortness of Breath, 12/12/19) Objective Data Height (Feet): 5 Height (Inches): 6.00 Weight (Pounds): 343 General Appearance: other - sedated, trach vent Additional Comments: confused. Mood is anxious. Affect is flat. Assessment/Plan [place] I: thorazin IM seroquel 50 q 8 hr midazolam bilat soft restraints Status: stable Status Narrative thorazin IM seroquel 50 q 8 hr midazolam bilat soft restraints Assessment/Plan: thorazin IM seroquel 50 q 8 hr midazolam bilat soft restraints Harris Ballesteros MD Jan 10, 2020 23:36
[2020-01-11] VITALS (24 sets, daily range): BP systolic 92–182; BP diastolic 34–143
--- NOTE | 2020-01-11 | NUR ---
NURSE NOTES: Patient repositioned. IV tubing changed. B/S 146; 2 units Novolog given subq. Patient is restless at the moment. GTube patent and flushes well.
[2020-01-11] MEDS: NovoLOG Insulin Flexpen SUBQ SCH ×4 (00:13→18:00)
[2020-01-11] MEDS: Midazolam 2mg/2ml Inj IVP PRN ×5 (01:08→17:28)
--- NOTE | 2020-01-11 02:00 | NUR ---
NURSE NOTES: Patient is seen to be clam and resting. BP:107/75, HR:107. O2sat:100%
[2020-01-11] MEDS: Metoclopramide 10mg/2ml Inj IVP SCH ×4 (03:31→21:01)
--- NOTE | 2020-01-11 04:00 | NUR ---
NURSE NOTES: Blood drawn peripherally and c-diff toxin sttol sample collected and sent to lab for results.
[2020-01-11 04:40] LABS: HEMATOCRIT 21.8 % (37.0-47.0); HEMOGLOBIN 7.2 G/DL (12.0-16.0); MEAN CORPUSCULAR VOLUME 91 FL (80-99); PLATELET COUNT 101 K/UL (150-450); RED CELL DISTRIBUTION WIDTH 20.6 % (11.6-14.8); WHITE BLOOD COUNT 2.2 K/UL (4.8-10.8)
[2020-01-11 05:10] LABS: CREATININE 1.7 MG/DL (0.55-1.30); POTASSIUM 3.9 MMOL/L (3.5-5.1)
--- NOTE | 2020-01-11 06:00 | NUR ---
NURSE NOTES: Bed bath given, linens changes, turn/repositioned, oral care and suctioning provided. Cooling blanket and rectal temp probe readjusted and on.
[2020-01-11] MEDS: Acetaminophen 650mg/20.3ml NG PRN (06:06)
[2020-01-11] MEDS: dilTIAZem HCl 60mg tab NG SCH ×3 (06:06→17:29)
--- NOTE | 2020-01-11 07:15 | NUR ---
NURSE HAND-OFF REPORT: Latest Vital Signs: Temperature 99.4 , Pulse 108 , B/P 109 /57 , Respiratory Rate 19 , O2 SAT 100 , Mechanical Ventilator, O2 Flow Rate . Vital Sign Comment: Stable EKG Rhythm: Rhythm change?: N Notified?: N -MD Gaviota UNDERWOOD Response: Latest Abreu Fall Score: 75 Fall Risk: High Risk Safety Measures: Call light Within Reach, Bed Alarm Zone 1, Side Rails Side Rails x3, Bed position Low and Locked. Fall Precautions: Yellow Socks Yellow Gown Door Sign Patient Fall Education Report given to .
--- NOTE | 2020-01-11 07:30 | NUR ---
NURSE NOTES: Patient received from Bre COHEN. Patient stable at this time with no s/sx of pain or distress. AOx0 resting at this time. RR even and unlabored on trach shiley 8. Ventilator settings as ordered AC 18 600mL 40% P5. Cardiac sounds benign. Breath sounds diminished, rhoncus with RT > LT. Bowels sounds hyperactive wit BM. cleaned and repositioned at this time. Feeding infusin. Zero residual. NGT in place. BL radial and Pedal pulses weak. Generalized edema present with hands +2 and ankles +3. Lockett in place draining well to gravity. LT UA PICC line dressing dry and intact. Patent with fluids TKO to both ports. Restraints on with good ROM, sensation and circulation. Still attempting to grab and pull on devices and staff when moved. Dependent edema present and previously noted unrelated to restraints. Side rails upx2, bed low and locked.
[2020-01-11] MEDS: Docusate 100mg/10ml Liq NG SCH ×2 (09:00→17:29)
--- NOTE | 2020-01-11 09:00 | NUR ---
NURSE NOTES: Patient stable at this time. Resting comfortably in bed with no s/sx of pain or distress.
[2020-01-11] MEDS: Pantoprazole Inj IVP SCH ×2 (09:48→20:57)
[2020-01-11] MEDS: Minocycline HCl 50mg cap ORAL SCH ×2 (09:48→21:00)
[2020-01-11] MEDS: Metoprolol Tartrate 50mg tab NG SCH ×2 (09:52→20:57)
[2020-01-11] MEDS: Bacitracin Oint UD TOPIC SCH ×2 (09:53→21:21)
[2020-01-11] MEDS: fentaNYL 2500mcg/NS 250ml 250 ML IV SCH (09:54)
--- NOTE | 2020-01-11 10:09 | General Progress Note ---
Subjective ROS Limited/Unobtainable: No Allergies: Coded Allergies: ERYTHROMYCIN BASE (Verified Allergy, Severe, 12/12/19) HALOPERIDOL (Verified Allergy, Unknown, 12/12/19) VANCOMYCIN (Unverified Adverse Reaction, Intermediate, Shortness of Breath, 12/12/19) Objective Last 24 Hour Vital Signs Date Time Temp Pulse Resp B/P (MAP) Pulse Ox O2 Delivery O2 Flow Rate FiO2 01/11/20 09:52 110 108/63 01/11/20 08:00 103 01/11/20 07:05 108 19 40 01/11/20 07:00 108 19 109/57 (74) 100 01/11/20 06:36 99.4 01/11/20 06:06 142 133/106 01/11/20 06:00 99.4 136 24 133/106 (115) 100 01/11/20 05:00 130 24 174/91 (118) 89 01/11/20 04:00 101.5 118 24 116/84 (95) 100 01/11/20 04:00 40 01/11/20 04:00 Mechanical Ventilator 01/11/20 03:06 104 01/11/20 03:01 122 23 40 01/11/20 03:00 109 20 112/66 (81) 100 01/11/20 02:00 105 19 126/67 (86) 100 01/11/20 01:00 109 23 182/143 (156) 100 01/11/20 00:00 Mechanical Ventilator 01/11/20 00:00 99.3 98 19 145/66 (92) 100 01/10/20 23:27 109 107/53 01/10/20 23:14 104 01/10/20 23:00 104 24 114/72 (86) 100 01/10/20 22:47 119 24 40 01/10/20 22:00 88 22 133/103 (113) 100 01/10/20 21:52 110 149/110 01/10/20 21:00 110 24 108/56 (73) 100 01/10/20 20:09 202 162/143 01/10/20 20:00 40 01/10/20 20:00 Mechanical Ventilator 01/10/20 20:00 100.5 161 25 162/143 (149) 100 01/10/20 19:45 145 01/10/20 19:16 132 27 40 01/10/20 19:00 125 22 117/76 (90) 100 01/10/20 18:00 125 24 111/61 (78) 100 01/10/20 17:00 124 23 158/128 (138) 90 01/10/20 16:00 Trach Collar 01/10/20 16:00 123 01/10/20 16:00 136 23 131/111 (118) 90 01/10/20 16:00 40 01/10/20 16:00 99.8 01/10/20 15:01 116 23 40 01/10/20 15:00 120 23 123/75 (91) 90 01/10/20 14:00 96 18 93/57 (69) 100 01/10/20 13:59 82 20 97 01/10/20 13:00 99.2 95 18 97/53 (68) 100 01/10/20 12:38 80 18 98 01/10/20 12:15 88 18 76/57 (63) 100 01/10/20 12:00 Mechanical Ventilator 01/10/20 12:00 40 01/10/20 12:00 90 01/10/20 12:00 92 18 94/50 (65) 100 01/10/20 11:45 85 19 76/52 (60) 100 01/10/20 11:30 87 18 88/54 (65) 100 01/10/20 11:29 84 19 86/47 (60) 100 01/10/20 11:15 19 84/55 Endotracheal Tube 40 01/10/20 11:15 85 18 84/55 (65) 100 01/10/20 11:12 114 19 40 01/10/20 11:00 81 18 78/52 (61) 100 01/10/20 11:00 85 18 77/50 (59) 100 01/10/20 11:00 18 77/50 Endotracheal Tube 40 01/10/20 10:53 18 89/60 Endotracheal Tube 40 01/10/20 10:53 86 18 89/60 (70) 100 01/10/20 10:52 18 89/60 40 01/10/20 10:30 86 18 86/45 (59) 100 Intake and Output 01/10/20 01/11/20 19:00 07:00 Intake Total 629.76 ml 720 ml Output Total 900 ml 1090 ml Balance -270.24 ml -370 ml Free Water 180 ml IV Total 584.76 ml Tube Feeding 45 ml 540 ml Output Urine Total 900 ml 1090 ml # Bowel Movements 4 Laboratory Tests 01/10/20 14:30: Cortisol 13.7 01/11/20 04:00: White Blood Count 2.2L, Red Blood Count 2.40L, Hemoglobin 7.2L, Hematocrit 21.8L , Mean Corpuscular Volume 91, Mean Corpuscular Hemoglobin 30.0, Mean Corpuscular Hemoglobin Concent 32.9, Red Cell Distribution Width 20.6H, Platelet Count 101L, Mean Platelet Volume 7.2, Neutrophils (%) (Auto) , Lymphocytes (%) (Auto) , Monocytes (%) (Auto) , Eosinophils (%) (Auto) , Basophils (%) (Auto) , Differential Total Cells Counted 100, Neutrophils % (Manual) 68, Lymphocytes % (Manual) 19L, Monocytes % (Manual) 9, Eosinophils % (Manual) 3, Basophils % (Manual) 1, Band Neutrophils 0, Platelet Estimate DecreasedL, Platelet Morphology Normal, Hypochromasia 3+, Sodium Level 145, Potassium Level 3.9, Chloride Level 109H, Carbon Dioxide Level 26, Anion Gap 10, Blood Urea Nitrogen 39H, Creatinine 1.7H, Estimat Glomerular Filtration Rate 30.0, Glucose Level 136H, Calcium Level 8.0L 01/11/20 08:02: Arterial Blood pH 7.410, Arterial Blood Partial Pressure CO2 40.5, Arterial Blood Partial Pressure O2 118.6H, Arterial Blood HCO3 25.1, Arterial Blood Ox ygen Saturation 98.6, Arterial Blood Base Excess 0.4, Eugene Test Positive Height (Feet): 5 Height (Inches): 6.00 Weight (Pounds): 343 General Appearance: no apparent distress EENT: normal ENT inspection Neck: supple Cardiovascular: normal rate Respiratory/Chest: decreased breath sounds Abdomen: normal bowel sounds, non tender, soft Extremities: non-tender Assessment/Plan Problem List: (1) CKD (chronic kidney disease) stage 3, GFR 30-59 ml/min ICD Codes: N18.3 - Chronic kidney disease, stage 3 (moderate) SNOMED: 000082054 (2) COPD (chronic obstructive pulmonary disease) ICD Codes: J44.9 - Chronic obstructive pulmonary disease, unspecified SNOMED: 85516877 (3) Smoker ICD Codes: F17.200 - Nicotine dependence, unspecified, uncomplicated SNOMED: 82960153 (4) GERD (gastroesophageal reflux disease) ICD Codes: K21.9 - Gastro-esophageal reflux disease without esophagitis SNOMED: 183587735 (5) Atrial fibrillation with RVR ICD Codes: I48.91 - Unspecified atrial fibrillation SNOMED: 369178675965837 Status: stable Assessment/Plan: pepcid fu H&H monitor labs bowel regimen fu cardiology recs icu care ppi cbc in am s/p Trach and PEG GTF monitor for residuals Mervin Victoria MD Jan 11, 2020 10:09
--- NOTE | 2020-01-11 10:09 | Pulmonolgy Critical Care Note ---
Luz Bowen TIP MENDER 01/11/20 1009: Critical Care - Asmt/Plan Assessment/Plan: ASSESSMENT acute hypoxemic hypercapnic resp failure, requiring intubation 12/22 failure to wean s/p trach 01/08 COVID 19 PNA sepsis fungemia UTI with E coli ESBL UTI VRE possible aspiration PNA Moderate R pleural effusion COPD Bronchospasm Atrial fibrillation with rapid ventricular response Congestive heart failure Acute renal failure on CKD Severe anemia Probable GI bleeding dysphagia, s/p PEG 01/08 Thrombocytopenia Status post ground fall Tobacco dependency Morbid obesity probably GARY Homeless R knee edema and hematoma, likely sprain /strain post fall PLAN OF CARE ICU intubated 12/22 MDI Albuterol in line with vent fup with CXR and ABG failed weaning trials s/p 01/08 trach hold Fentanyl gtt and start CPAP trials this am as tolerated CXR 01/[address] effusion hold on thoracentesis for now CXR 01/09 stable Fentanyl gtt monitor hemodynamic status closely s/p steroids IV ( started 12/23) continue for total of 10 days till 01/02 s/p Remdesivir (started 12/24 ), dc 12/30 initial diagnoses with COVID 19 at [facility] 11/29, was not hypoxic and not intubated, was not treated with Remdesivivr , only received empiric abx for PNA sedation with Fentanyl gtt and versed prn - DVT prophylaxis with Lovenox prior Venous Duplex BLE -NGT COVID 19 by PCR 12/22 positive isolation IL 6 52 , initial CRP 15.6, ferritin 769, fup with inflammatory markers CRP 12/29 - down to 11.8 ; ferritin down to 503 CRP 01/03 -10.7 on diuresis with Lasix , monitor volumes closely creat remains stable rate control- per cardio recs: monitor volumes trend pro B ECHO with pEF no evidence of WMA GI prophylaxis with PPI s/p Venofer x 2 s/p blood transfusion 12/25 monitor HH with goal to keep Hgb >7 completed IV Venofer x5 days ( 01/04- 01/08) s/p 1 u PRBC 01/08 ( going for surgery, Hgb 6.7) GI procedure when stable monitor PLT counts asp precautions NGTF PEG today 01/09 renal US no hydro, BL nonobstructive stones s/p IV hydration, now resumed again per nephro monitor renal parameters, lytes , e/lyte management as per nephro recs creat stable SCX 01/07 + ACB MDR BCX 01/07 NGTD UCX 01/07 NGT now on Polymyxin , Zyvox and Zosyn -as per ID recs, completing today further abx as per ID recs cooling blanket prn fevers prior X ray R knee given fall 12/15 , large hematoma, swelling-no fx or dis location ice R knee and elevate CT head no acute IC pathology fall precautions prior declined Nicotine patch discussion on weight loss if receptive - not at this time; anxious and wants to go home pain management anxiolytic prn SW consult for placement evaluated by bioethics -> DNR/DNI status appropriate given current critical condition , grave prognosis and multiple comorbidities, would recommend DNR/DNI status as well DNR/DNI status case discussed and evaluated by supervising physician ivy mccarty for a consult! Critical Care - Objective Last 24 Hour Vital Signs Date Time Temp Pulse Resp B/P (MAP) Pulse Ox O2 Delivery O2 Flow Rate FiO2 01/11/20 09:52 110 108/63 01/11/20 08:00 103 01/11/20 07:05 108 19 40 01/11/20 07:00 108 19 109/57 (74) 100 01/11/20 06:36 99.4 01/11/20 06:06 142 133/106 01/11/20 06:00 99.4 136 24 133/106 (115) 100 01/11/20 05:00 130 24 174/91 (118) 89 01/11/20 04:00 101.5 118 24 116/84 (95) 100 01/11/20 04:00 40 01/11/20 04:00 Mechanical Ventilator 01/11/20 03:06 104 01/11/20 03:01 122 23 40 01/11/20 03:00 109 20 112/66 (81) 100 01/11/20 02:00 105 19 126/67 (86) 100 01/11/20 01:00 109 23 182/143 (156) 100 01/11/20 00:00 Mechanical Ventilator 01/11/20 00:00 99.3 98 19 145/66 (92) 100 01/10/20 23:27 109 107/53 01/10/20 23:14 104 01/10/20 23:00 104 24 114/72 (86) 100 01/10/20 22:47 119 24 40 01/10/20 22:00 88 22 133/103 (113) 100 01/10/20 21:52 110 149/110 01/10/20 21:00 110 24 108/56 (73) 100 01/10/20 20:09 202 162/143 01/10/20 20:00 40 01/10/20 20:00 Mechanical Ventilator 01/10/20 20:00 100.5 161 25 162/143 (149) 100 01/10/20 19:45 145 01/10/20 19:16 132 27 40 01/10/20 19:00 125 22 117/76 (90) 100 01/10/20 18:00 125 24 111/61 (78) 100 01/10/20 17:00 124 23 158/128 (138) 90 01/10/20 16:00 Trach Collar 01/10/20 16:00 123 01/10/20 16:00 136 23 131/111 (118) 90 01/10/20 16:00 40 01/10/20 16:00 99.8 01/10/20 15:01 116 23 40 01/10/20 15:00 120 23 123/75 (91) 90 01/10/20 14:00 96 18 93/57 (69) 100 01/10/20 13:59 82 20 97 01/10/20 13:00 99.2 95 18 97/53 (68) 100 01/10/20 12:38 80 18 98 01/10/20 12:15 88 18 76/57 (63) 100 01/10/20 12:00 Mechanical Ventilator 01/10/20 12:00 40 01/10/20 12:00 90 01/10/20 12:00 92 18 94/50 (65) 100 01/10/20 11:45 85 19 76/52 (60) 100 01/10/20 11:30 87 18 88/54 (65) 100 01/10/20 11:29 84 19 86/47 (60) 100 01/10/20 11:15 19 84/55 Endotracheal Tube 40 01/10/20 11:15 85 18 84/55 (65) 100 01/10/20 11:12 114 19 40 01/10/20 11:00 81 18 78/52 (61) 100 01/10/20 11:00 85 18 77/50 (59) 100 01/10/20 11:00 18 77/50 Endotracheal Tube 40 01/10/20 10:53 18 89/60 Endotracheal Tube 40 01/10/20 10:53 86 18 89/60 (70) 100 01/10/20 10:52 18 89/60 40 01/10/20 10:30 86 18 86/45 (59) 100 Objective: CONDITION: critical General Appearance: morbidly obese , sedated, generalized anasarca ; on vent AC 600-18-40% PEEP 5 Lines, tubes and drains: LUE PICC new , intact HEENT: normocephalic, atraumatic, anicteric, NGT in , Neck: trach with Shiley # 8, secretions moderate amount, yellow color, thick consistency Respiratory/Chest: chest wall non-tender, no accessory muscle use, BS overall clear, Cardiovascular/Chest: irregularly irregular - A fib , tachy , distant heart sounds, Abdomen: normal bowel sounds, non tender , obese, soft : [place] Extremities: no calf tenderness, moderate edema - +3 BLE, R knee with large hematoma, edema, Skin Exam: warm/dry, multiple tattoos Neurologic: sedated Musculoskeletal: normal muscle bulk Micro: Microbiology Date/Time Source Procedure Growth Status 01/08/20 18:25 Indwelling Cath Urine Culture - Final NO GROWTH AFTER 48 HOURS Complete 01/08/20 18:25 Sputum Induced Gram Stain - Final Resulted 01/08/20 18:25 Sputum Culture - Preliminary A.baumanii Complx - Mdr Resulted 01/08/20 15:15 Blood Blood Culture - Preliminary NO GROWTH AFTER 48 HOURS Resulted Accucheck: 116 Critical Care - Subjective ROS Limited/Unobtainable: Yes Interval Events: s/p trach 01/07->no signs of resp distress ABG stable this am s/p PEG 01/08-> tolerates feeding febrile 101.5, early am, currently low grade fevers leukopenic, anemic CXR this am stable Condition: critical IV Access: PICC - LUE intact EKG Rhythm: Atrial Fibrillation - with tachy FI02: 40 Vent Support Breath Rate: 18 Vent Support Mode: AC Vent Tidal Volume: 600 Sputum Amount: Small PEEP: 5.0 PIP: 35 Drips: fentanyl gtt Tube Feeding Amount: 45 I&O: Intake and Output 01/10/20 01/11/20 19:00 07:00 Intake Total 629.76 ml 720 ml Output Total 900 ml 1090 ml Balance -270.24 ml -370 ml Free Water 180 ml IV Total 584.76 ml Tube Feeding 45 ml 540 ml Output Urine Total 900 ml 1090 ml # Bowel Movements 4 CXR: 01/09 - Interim tracheostomy placement. No radiographically evident complication Stable bilateral pleural and parenchymal disease ET-Tube: 7.5 ET Position: 24 Igor Carpio MD 01/11/20 1235: Critical Care - Asmt/Plan Assessment/Plan: Patient seen and examined with TIP MENDER. Agree with above A&P as it reflects our joint deliberations. S/P PEG, CPAP trials, will attempt TC as able, CC 35 Luz Bowen NP Jan 11, 2020 10:09 Igor Carpio MD Jan 11, 2020 12:35
--- NOTE | 2020-01-11 10:46 | NUR ---
RESPIRATORY NOTES PT placed on SBT - CPAP 5, PS 8 PT tolerating weaning well, with no signs of respiratory distress. ABG to follow in an hour. Rn Feli marquis. Will continue to monitor.
--- NOTE | 2020-01-11 11:09 | NUR ---
NURSE NOTES: Patient switched to CPAP 8 pressure support 12. VSS. Appears to be tolerating and ventilating well. ABG ordered in one hour.
--- NOTE | 2020-01-11 11:53 | Surgery Progress Note ---
Surgery Progress Note Subjective Procedure Performed tracheostomy Additional Comments s/p trach more comfortable less agitated on vent weaning Objective Last 24 Hour Vital Signs Date Time Temp Pulse Resp B/P (MAP) Pulse Ox O2 Delivery O2 Flow Rate FiO2 01/11/20 11:00 106 20 110/99 (103) 100 01/11/20 10:50 40 01/11/20 10:00 104 18 100/63 (75) 01/11/20 09:52 110 108/63 01/11/20 09:00 105 18 106/55 (72) 01/11/20 08:00 Trach Collar 01/11/20 08:00 40 01/11/20 08:00 99.1 102 18 107/57 (74) 01/11/20 08:00 103 01/11/20 07:05 108 19 40 01/11/20 07:00 108 19 109/57 (74) 100 01/11/20 06:36 99.4 01/11/20 06:06 142 133/106 01/11/20 06:00 99.4 136 24 133/106 (115) 100 01/11/20 05:00 130 24 174/91 (118) 89 01/11/20 04:00 101.5 118 24 116/84 (95) 100 01/11/20 04:00 40 01/11/20 04:00 Mechanical Ventilator 01/11/20 03:06 104 01/11/20 03:01 122 23 40 01/11/20 03:00 109 20 112/66 (81) 100 01/11/20 02:00 105 19 126/67 (86) 100 01/11/20 01:00 109 23 182/143 (156) 100 01/11/20 00:00 Mechanical Ventilator 01/11/20 00:00 99.3 98 19 145/66 (92) 100 01/10/20 23:27 109 107/53 01/10/20 23:14 104 01/10/20 23:00 104 24 114/72 (86) 100 01/10/20 22:47 119 24 40 01/10/20 22:00 88 22 133/103 (113) 100 01/10/20 21:52 110 149/110 01/10/20 21:00 110 24 108/56 (73) 100 01/10/20 20:09 202 162/143 01/10/20 20:00 40 10/1/20 20:00 Mechanical Ventilator 01/10/20 20:00 100.5 161 25 162/143 (149) 100 01/10/20 19:45 145 01/10/20 19:16 132 27 40 01/10/20 19:00 125 22 117/76 (90) 100 01/10/20 18:00 125 24 111/61 (78) 100 01/10/20 17:00 124 23 158/128 (138) 90 01/10/20 16:00 Trach Collar 01/10/20 16:00 123 01/10/20 16:00 136 23 131/111 (118) 90 01/10/20 16:00 40 01/10/20 16:00 99.8 01/10/20 15:01 116 23 40 01/10/20 15:00 120 23 123/75 (91) 90 01/10/20 14:00 96 18 93/57 (69) 100 01/10/20 13:59 82 20 97 01/10/20 13:00 99.2 95 18 97/53 (68) 100 01/10/20 12:38 80 18 98 01/10/20 12:15 88 18 76/57 (63) 100 01/10/20 12:00 Mechanical Ventilator 01/10/20 12:00 40 01/10/20 12:00 90 01/10/20 12:00 92 18 94/50 (65) 100 I&O Intake and Output 01/10/20 01/11/20 19:00 07:00 Intake Total 1634.18 ml 720 ml Output Total 900 ml 1090 ml Balance 734.18 ml -370 ml Free Water 180 ml IV Total 1589.18 ml Tube Feeding 45 ml 540 ml Output Urine Total 900 ml 1090 ml # Bowel Movements 4 Cardiovascular: RSR Respiratory: decreased breath sounds Abdomen: non-tender, present bowel sounds Extremities: edema, cyanosis, other Laboratory Tests Test 01/10/20 14:30 01/11/20 04:00 01/11/20 08:02 Cortisol 13.7 UG/DL White Blood Count 2.2 K/UL (4.8-10.8) L Red Blood Count 2.40 M/UL (4.20-5.40) L Hemoglobin 7.2 G/DL (12.0-16.0) L Hematocrit 21.8 % (37.0-47.0) L Mean Corpuscular Volume 91 FL (80-99) Mean Corpuscular Hemoglobin 30.0 PG (27.0-31.0) Mean Corpuscular Hemoglobin Concent 32.9 G/DL (32.0-36.0) Red Cell Distribution Width 20.6 % (11.6-14.8) H Platelet Count 101 K/UL (150-450) L Mean Platelet Volume 7.2 FL (6.5-10.1) Neutrophils (%) (Auto) % (45.0-75.0) Lymphocytes (%) (Auto) % (20.0-45.0) Monocytes (%) (Auto) % (1.0-10.0) Eosinophils (%) (Auto) % (0.0-3.0) Basophils (%) (Auto) % (0.0-2.0) Differential Total Cells Counted 100 Neutrophils % (Manual) 68 % (45-75) Lymphocytes % (Manual) 19 % (20-45) L Monocytes % (Manual) 9 % (1-10) Eosinophils % (Manual) 3 % (0-3) Basophils % (Manual) 1 % (0-2) Band Neutrophils 0 % (0-8) Platelet Estimate Decreased L Platelet Morphology Normal Hypochromasia 3+ Sodium Level 145 MMOL/L (136-145) Potassium Level 3.9 MMOL/L (3.5-5.1) Chloride Level 109 MMOL/L (98-107) H Carbon Dioxide Level 26 MMOL/L (21-32) Anion Gap 10 mmol/L (5-15) Blood Urea Nitrogen 39 mg/dL (7-18) H Creatinine 1.7 MG/DL (0.55-1.30) H Estimat Glomerular Filtration Rate 30.0 mL/min (>60) Glucose Level 136 MG/DL (74-106) H Calcium Level 8.0 MG/DL (8.5-10.1) L Arterial Blood pH 7.410 (7.350-7.450) Arterial Blood Partial Pressure CO2 40.5 mmHg (35.0-45.0) Arterial Blood Partial Pressure O2 118.6 mmHg (75.0-100.0) H Arterial Blood HCO3 25.1 mmol/L (22.0-26.0) Arterial Blood Oxygen Saturation 98.6 % (95-100) Arterial Blood Base Excess 0.4 (-2-2) Eugene Test Positive Plan Problems: (1) Urinary tract infection (2) CHF exacerbation (3) History of schizophrenia (4) Atrial fibrillation with RVR (5) Schizophrenia (6) GERD (gastroesophageal reflux disease) (7) Smoker (8) Atrial fibrillation with rapid ventricular response (9) Lymphadema (10) COPD (chronic obstructive pulmonary disease) (11) CKD (chronic kidney disease) stage 3, GFR 30-59 ml/min (12) NATALIE (acute kidney injury) (13) Dehydration (14) Dysphagia (15) UTI (urinary tract infection) (16) UGI bleed (17) ESBL (extended spectrum beta-lactamase) producing bacteria infection (18) Constipation (19) Lactic acidosis (20) Tinea cruris (21) Onychomycosis (22) Emesis (23) Essential hypertension (24) Anemia (25) Cough (26) Depression (27) Depression (28) Edema (29) Rash (30) Opiate dependence (31) Opiate dependence (32) Opiate dependence (33) Opiate dependence (34) Pyelonephritis (35) Sepsis (36) UTI (urinary tract infection) (37) Nausea and vomiting (38) Abdominal pain Assessment & Plan: [age]-year-old female obese white abdominal pain deep tissue injury identified limited mobility on HD. KUB noted tube in place continue meds feeds Does not seem obstructed We will monitor lines noted. plan change resume tube feeds labs okay FINDINGS: Lower thorax: Obscuration of the left costophrenic angle suggestive of pleural effusion. Intraperitoneal space: No free air. Gastrointestinal tract: Unremarkable. No dilation. Bones/joints: Unremarkable. Tubes, lines and devices: The nasogastric tube has the tip at the mid inferior aspect of the gastric body. Other findings: Nonspecific gas pattern. Single frontal view of the abdomen demonstrates tip of the enteric tube and distal side-port projecting over the stomach. Gas is identified within the nondistended large bowel. There is a paucity of small bowel gas seen. Partially visualized left pleural effusion. No other significant interval change. (39) Chest pain (40) Chest pain (41) Nausea (42) Obesity (43) Chronic ulcer of leg (44) Chronic ulcer of leg (45) Chronic ulcer of leg (46) ACS (acute coronary syndrome) (47) Acute chest pain (48) Encounter for dressing change or suture removal (49) Left leg cellulitis (50) Acute encephalopathy (51) Encounter for wound re-check (52) Intractable nausea and vomiting (53) Infection due to ESBL-producing Escherichia coli (54) Chronic venous stasis (55) Change of dressing (56) Change of dressing (57) Change of dressing (58) Change of dressing (59) Change of dressing (60) Change of dressing (61) Change of dressing (62) Change of dressing (63) ESBL urine (64) Lymphadema (65) Lymphedema (66) Lymphedema (67) Lymphedema (68) Lymphedema (69) Lymphedema (70) Lymphedema (71) Lymphedema (72) Lymphedema (73) Open wound of foot (74) Open wound of foot (75) cellulitis (76) chronic lymphedema (77) chronic lymphedema (78) chronic lymphedema (79) hypertension uncontrolled (80) hypertension uncontrolled (81) Intertrigo (82) Sciatica (83) Cellulitis (84) Schizophrenia (85) Chronic bronchitis (86) HTN (hypertension) (87) Venous stasis ulcers (88) Medication refill (89) Chest pain, atypical (90) BMI 45.0-49.9, adult (91) Lymphedema of both lower extremities (92) hypertension uncontrolled (93) hypertension uncontrolled (94) hypertension uncontrolled (95) tenia corpus (96) Deep tissue injury Assessment & Plan: Morbidly obese pt whom presented on admission with Pressure injuries, Edemae bilat lower extremities eschar to dorsal aspects of metata rsals. Pt is very demanding of staff and can be resistive to repositioning. DTPI noted to L Sacrum(L)5.5cm x (W)2.5cm. Base of Pressure Injury is Maroon and indurated with surrounding non-blanchable erythema DTPI R Sacrum(L)5.5cm x (W)2.3cm. Base of Pressure Injury is maroon with purpuric center that is fluctuant. Pt complained of tenderness when minimally palpated. Bilat lower extremities are edematous . Dry eschar noted to nail matrix and tip of L 1st metatarsal, Dorsal L 2nd metatarsal, R 2nd and R 4th metatarsals. Both heels are boggy with non-Blanchable erythema. blisters forming on Right lower extremity anterior tibia. not infected cellulitis / edema on b/l le stable cont abx Tx.Plan: Apply Moisture Barrier Paste to Sacrum R and L gluteal cheeks. Cover with Optifoam drsgs. Change every 3 days and prn. Apply Betadine to dry eschar metatarsals both feet Daily. Apply Cavilon Skin Barrier to both heels. Cover each heel with Optifoam drsgs. Change every 7days and prn. Reposition at least every 2hours or as tolerated. Off-load heels with pillow. right leg hematoma stable critically ill and edema on right leg has compromised dermis over the hematoma. will likely need debridement once improved (97) COVID-19 Assessment & Plan: ++ on vent weaning abx as per ID (98) Respiratory failure Assessment & Plan: not able to wean safely will plan for trach case discussed with medical team, pulm, icu. recommended to trach given medical condition. medically indicated and recommended. s/p trach 01/08 s/p trach more comfortable less agitated on vent weaning (99) Pneumonia Juan Manuel Buckner Jan 11, 2020 11:53
--- NOTE | 2020-01-11 12:15 | NUR ---
RESPIRATORY NOTES ABG drawn roughly one hour into SBT - rise in PCO2, decline in pH. PT placed back onto previous vent settings. NOEL Edmond aware. Will continue to monitor.
--- NOTE | 2020-01-11 12:58 | General Progress Note ---
Subjective ROS Limited/Unobtainable: Yes Allergies: Coded Allergies: ERYTHROMYCIN BASE (Verified Allergy, Severe, 12/12/19) HALOPERIDOL (Verified Allergy, Unknown, 12/12/19) VANCOMYCIN (Unverified Adverse Reaction, Intermediate, Shortness of Breath, 12/12/19) Objective Last 24 Hour Vital Signs Date Time Temp Pulse Resp B/P (MAP) Pulse Ox O2 Delivery O2 Flow Rate FiO2 01/11/20 11:00 106 20 110/99 (103) 100 01/11/20 10:50 40 01/11/20 10:00 104 18 100/63 (75) 01/11/20 09:52 110 108/63 01/11/20 09:00 105 18 106/55 (72) 01/11/20 08:00 Trach Collar 01/11/20 08:00 40 01/11/20 08:00 99.1 102 18 107/57 (74) 01/11/20 08:00 103 01/11/20 07:05 108 19 40 01/11/20 07:00 108 19 109/57 (74) 100 01/11/20 06:36 99.4 01/11/20 06:06 142 133/106 01/11/20 06:00 99.4 136 24 133/106 (115) 100 01/11/20 05:00 130 24 174/91 (118) 89 01/11/20 04:00 101.5 118 24 116/84 (95) 100 01/11/20 04:00 40 01/11/20 04:00 Mechanical Ventilator 01/11/20 03:06 104 01/11/20 03:01 122 23 40 01/11/20 03:00 109 20 112/66 (81) 100 01/11/20 02:00 105 19 126/67 (86) 100 01/11/20 01:00 109 23 182/143 (156) 100 01/11/20 00:00 Mechanical Ventilator 01/11/20 00:00 99.3 98 19 145/66 (92) 100 01/10/20 23:27 109 107/53 01/10/20 23:14 104 01/10/20 23:00 104 24 114/72 (86) 100 01/10/20 22:47 119 24 40 01/10/20 22:00 88 22 133/103 (113) 100 01/10/20 21:52 110 149/110 01/10/20 21:00 110 24 108/56 (73) 100 01/10/20 20:09 202 162/143 01/10/20 20:00 40 01/10/20 20:00 Mechanical Ventilator 01/10/20 20:00 100.5 161 25 162/143 (149) 100 01/10/20 19:45 145 01/10/20 19:16 132 27 40 01/10/20 19:00 125 22 117/76 (90) 100 01/10/20 18:00 125 24 111/61 (78) 100 01/10/20 17:00 124 23 158/128 (138) 90 01/10/20 16:00 Trach Collar 01/10/20 16:00 123 01/10/20 16:00 136 23 131/111 (118) 90 01/10/20 16:00 40 01/10/20 16:00 99.8 01/10/20 15:01 116 23 40 01/10/20 15:00 120 23 123/75 (91) 90 01/10/20 14:00 96 18 93/57 (69) 100 01/10/20 13:59 82 20 97 01/10/20 13:00 99.2 95 18 97/53 (68) 100 Intake and Output 01/10/20 01/11/20 19:00 07:00 Intake Total 1634.18 ml 720 ml Output Total 900 ml 1090 ml Balance 734.18 ml -370 ml Free Water 180 ml IV Total 1589.18 ml Tube Feeding 45 ml 540 ml Output Urine Total 900 ml 1090 ml # Bowel Movements 4 Laboratory Tests 01/10/20 14:30: Cortisol 13.7 01/11/20 04:00: White Blood Count 2.2L, Red Blood Count 2.40L, Hemoglobin 7.2L, Hematocrit 21.8L , Mean Corpuscular Volume 91, Mean Corpuscular Hemoglobin 30.0, Mean Corpuscular Hemoglobin Concent 32.9, Red Cell Distribution Width 20.6H, Platelet Count 101L, Mean Platelet Volume 7.2, Neutrophils (%) (Auto) , Lymphocytes (%) (Auto) , Monocytes (%) (Auto) , Eosinophils (%) (Auto) , Basophils (%) (Auto) , Differential Total Cells Counted 100, Neutrophils % (Manual) 68, Lymphocytes % (Manual) 19L, Monocytes % (Manual) 9, Eosinophils % (Manual) 3, Basophils % (Manual) 1, Band Neutrophils 0, Platelet Estimate DecreasedL, Platelet Morphology Normal, Hypochromasia 3+, Sodium Level 145, Potassium Level 3.9, Chloride Level 109H, Carbon Dioxide Level 26, Anion Gap 10, Blood Urea Nitrogen 39H, Creatinine 1.7H, Estimat Glomerular Filtration Rate 30.0, Glucose Level 136H, Calcium Level 8.0L 01/11/20 08:02: Arterial Blood pH 7.410, Arterial Blood Partial Pressure CO2 40.5, Arterial Blood Partial Pressure O2 118.6H, Arterial Blood HCO3 25.1, Arterial Blood Oxygen Saturation 98.6, Arterial Blood Base Excess 0.4, Eugene Test Positive 01/11/20 11:54: Arterial Blood pH 7.325L, Arterial Blood Partial Pressure CO2 54.3H, Arterial Blood Partial Pressure O2 98.9, Arterial Blood HCO3 27.7H, Arterial Blood Oxygen Saturation 96.5, Arterial Blood Base Excess 1.3, Eugene Test Positive Height (Feet): 5 Height (Inches): 6.00 Weight (Pounds): 343 General Appearance: lethargic, other - trach vent Neck: normal alignment Cardiovascular: regularly irregular Respiratory/Chest: crackles/rales Abdomen: non tender Edema: moderate edema Neurologic: unresponsive Assessment/Plan Problem List: (1) Schizophrenia ICD Codes: F20.9 - Schizophrenia, unspecified SNOMED: 66766334 (2) GERD (gastroesophageal reflux disease) ICD Codes: K21.9 - Gastro-esophageal reflux disease without esophagitis SNOMED: 813109161 (3) Lymphadema (4) Smoker ICD Codes: F17.200 - Nicotine dependence, unspecified, uncomplicated SNOMED: 51541813 (5) Atrial fibrillation with rapid ventricular response ICD Codes: I48.91 - Unspecified atrial fibrillation SNOMED: 365236814497133 (6) CKD (chronic kidney disease) stage 3, GFR 30-59 ml/min ICD Codes: N18.3 - Chronic kidney disease, stage 3 (moderate) SNOMED: 063340419 (7) NATALIE (acute kidney injury) ICD Codes: N17.9 - Acute kidney failure, unspecified SNOMED: 9482840, 79172892 (8) COPD (chronic obstructive pulmonary disease) ICD Codes: J44.9 - Chronic obstructive pulmonary disease, unspecified SNOMED: 25414560 (9) UGI bleed ICD Codes: K92.2 - Gastrointestinal hemorrhage, unspecified SNOMED: 65001032 (10) Dysphagia ICD Codes: R13.10 - Dysphagia, unspecified SNOMED: 51718039, 646283550 (11) UTI (urinary tract infection) ICD Codes: N39.0 - Urinary tract infection, site not specified SNOMED: 96938456 (12) ESBL (extended spectrum beta-lactamase) producing bacteria infection ICD Codes: A49.9 - Bacterial infection, unspecified; Z16.12 - Extended spectrum beta lactamase (ESBL) resistance SNOMED: 669958602 (13) Dehydration ICD Codes: E86.0 - Dehydration SNOMED: 32452934 (14) CHF exacerbation ICD Codes: I50.9 - Heart failure, unspecified SNOMED: 612444719, 06956312627864 (15) Acute respiratory failure ICD Codes: J96.00 - Acute respiratory failure, unspecified whether with hypoxia or hypercapnia SNOMED: 40849707 (16) COVID-19 ICD Codes: U07.1 - COVID-19 SNOMED: 435321775 (17) Pneumonia ICD Codes: J18.9 - Pneumonia, unspecified organism SNOMED: 799546576 Qualifiers: (18) Hematoma of lower leg ICD Codes: S80.10XA - Contusion of unspecified lower leg, initial encounter SNOMED: 147620321 (19) CKD (chronic kidney disease) stage 3, GFR 30-59 ml/min ICD Codes: N18.3 - Chronic kidney disease, stage 3 (moderate) SNOMED: 200791832 Status: stable Assessment/Plan: resp distress, icu, trach, vent, natalie on ckd,,now stable, I/O, ,+hematoma RLE stop eliquis , lovenox now iv protonix, rx esbl and + vre uti,g+ cocci linezolid , remains high risk, d/w psych, ID, cardiology, chf and on lasix ,covid neg prior now +, grave prognosis, fungemia micafungin likely will be unable to wean for a long time, agitated when tried to wean and had apnea 01/01, cpap trial 01/02 + had distress/tachycardia , ,all lab and orders reviewed , no active bleeding , low Hb to transfuse 01/08 preop, done, increase lasix for chf , reculture, d/w dr curran needs trach, done,Needs gastrostomy unable to sign, done Dr Curran thinks that she might be able to wean gradually after trach placed, febrile again and infiltrates, trach scheduled 01/08, done, pancytopenia stable may be from sepsis or meds, posssible primarry BM disease, to observe icu time 35 min Benjamin Dumont MD Jan 11, 2020 12:58
--- NOTE | 2020-01-11 13:20 | NUR ---
NURSE NOTES: Patient agitated. Given versed. Now calm. VSS.
--- NOTE | 2020-01-11 13:46 | Infectious Diseases Prog Note ---
Assessment/Plan Assessment/Plan ASSESSMENT AND PLAN: 1. MDR acinetobacter pna - S-minocycline, I-colistin, polymyxin hx esbl e.coli uti/pyelonephritis, sepsis, leukocytosis, fevers mrsa and vre colonization, NATALIE, respiratory distress/failure Fungemia - + yeast in blood - ID still pending hx mrsa pna/acinetobacter pna hx VRE uti covid-19 infection right leg swelling and redness noted, ? cellulitis, ? infected hematoma, ? wound infection - minocycline - day # 2 - s/p micafungin - surveillance cultures - bc - neg, uc-neg, sc-acinetobacter - s/p remdesivir, on dexamethasone - monitor labs and chest x-ray - ? debridement right leg per surgery when patient stable - d/w pharmacy 2. Chronic kidney failure, acute renal failure. 3. COPD. 4. Pulmonary followup. 5. Renal followup. 6. History of falls. 7. Atrial fibrillation. Cardiology followup. 8. Obesity. 9. Gait disorder. 10. Schizophrenia. 11. Homeless. 12. Allergic to erythromycin, haloperidol, and vancomycin. 13. Social history is negative. 14. Family history is noncontributory. 15. MAR is noted. 16. Case discussed with RN. 17. Continue treatment per Dr. Dumont and consultants. Subjective Constitutional: Reports: fever - yesterday , fatigue Respiratory: Reports: shortness of breath Gastrointestinal/Abdominal: Denies: nausea, vomiting, diarrhea Allergies: Coded Allergies: ERYTHROMYCIN BASE (Verified Allergy, Severe, 12/12/19) HALOPERIDOL (Verified Allergy, Unknown, 12/12/19) VANCOMYCIN (Unverified Adverse Reaction, Intermediate, Shortness of Breath, 12/12/19) Objective Last 24 Hour Vital Signs Date Time Temp Pulse Resp B/P (MAP) Pulse Ox O2 Delivery O2 Flow Rate FiO2 01/11/20 13:00 97 20 94/56 (69) 01/11/20 12:15 100 01/11/20 12:15 102 16 40 01/11/20 12:00 Trach Collar 01/11/20 12:00 99.2 102 20 92/45 (61) 100 01/11/20 12:00 105 01/11/20 11:00 106 20 110/99 (103) 100 01/11/20 10:50 40 01/11/20 10:46 108 24 40 01/11/20 10:00 104 18 100/63 (75) 01/11/20 09:52 110 108/63 01/11/20 09:00 105 18 106/55 (72) 01/11/20 08:00 Trach Collar 01/11/20 08:00 40 01/11/20 08:00 99.1 102 18 107/57 (74) 01/11/20 08:00 103 01/11/20 07:05 108 19 40 01/11/20 07:00 108 19 109/57 (74) 100 01/11/20 06:36 99.4 01/11/20 06:06 142 133/106 01/11/20 06:00 99.4 136 24 133/106 (115) 100 01/11/20 05:00 130 24 174/91 (118) 89 01/11/20 04:00 101.5 118 24 116/84 (95) 100 01/11/20 04:00 40 01/11/20 04:00 Mechanical Ventilator 01/11/20 03:06 104 01/11/20 03:01 122 23 40 01/11/20 03:00 109 20 112/66 (81) 100 01/11/20 02:00 105 19 126/67 (86) 100 01/11/20 01:00 109 23 182/143 (156) 100 01/11/20 00:00 Mechanical Ventilator 01/11/20 00:00 99.3 98 19 145/66 (92) 100 01/10/20 23:27 109 107/53 01/10/20 23:14 104 01/10/20 23:00 104 24 114/72 (86) 100 01/10/20 22:47 119 24 40 01/10/20 22:00 88 22 133/103 (113) 100 01/10/20 21:52 110 149/110 01/10/20 21:00 110 24 108/56 (73) 100 01/10/20 20:09 202 162/143 01/10/20 20:00 40 01/10/20 20:00 Mechanical Ventilator 01/10/20 20:00 100.5 161 25 162/143 (149) 100 01/10/20 19:45 145 01/10/20 19:16 132 27 40 01/10/20 19:00 125 22 117/76 (90) 100 01/10/20 18:00 125 24 111/61 (78) 100 01/10/20 17:00 124 23 158/128 (138) 90 01/10/20 16:00 Trach Collar 01/10/20 16:00 123 01/10/20 16:00 136 23 131/111 (118) 90 01/10/20 16:00 40 01/10/20 16:00 99.8 01/10/20 15:01 116 23 40 01/10/20 15:00 120 23 123/75 (91) 90 01/10/20 14:00 96 18 93/57 (69) 100 01/10/20 13:59 82 20 97 Height (Feet): 5 Height (Inches): 6.00 Weight (Pounds): 343 HEENT: no JVD, status post trach Respiratory/Chest: crackles/rales, rhonchi - bilaterally Cardiovascular: normal rate, regular rhythm Chest x-ray - 11/17/19 - Procedure: XRAY Chest 1v Indication: Shortness of breath Technique: One view of the chest Comparison: 12/17/2019 Findings: The heart is enlarged. There is bilateral interstitial and airspace disease is again demonstrated, probably unchanged allowing for differences in degree of inspiration. Impression: Unchanged, over one day, findings as above. Chest x-ray - 12/21/19 - Procedure: XRAY Chest 1v Indication: Shortness of breath Technique: One view of the chest Comparison: 12/19/2019 Findings: The heart is enlarged. Bilateral extensive infiltrates are again demonstrated, stable to slightly worse allowing for differences in exposure technique. There is suggestion of increasing pleural fluid on the left. Nasoga stric tube is again demonstrated. Impression: Stable to worsened bilateral extensive infiltrates, since exam of 2 days prior Increasing left pleural effusion Chest x-ray - 12/23/19 - IMPRESSION: 1. No significant interval change from the prior chest x-ray. 2. Persistent moderate left pleural effusion and mild right pleural effusion. 3. Pulmonary vascular congestion. 4. Persistent opacity in the left lung base, which may represent atelectasis versus pneumonia. Chest x-ray - 12/25/19 - Procedure: XRAY Chest 1v Procedure: XRAY Chest 1v Reason for study: Reason For Exam: SOB Comparison films: 12/24/2019. FINDINGS: The tracheal tube and NG tube remain in place. Vascular prominence and bilateral hazy alveolar densities are unchanged. Cardiomegaly and small effusions also unchanged. The bony thorax appear unremarkable. IMPRESSION: NO SIGNIFICANT CHANGE COMPARED TO PREVIOUS EXAM. 12/26/19 - Procedure: XRAY Chest 1v Procedure: XRAY Chest 1v Reason for study: Reason For Exam: SOB Comparison films: 12/25/2019. FINDINGS: Endotracheal tube and NG tube remain in place. Hazy bilateral alveolar densities are essentially unchanged given the difference in technique. Cardiomegaly and right effusion again noted. The bony thorax appear unremarkable. IMPRESSION: NO SIGNIFICANT CHANGE COMPARED TO PREVIOUS EXAM. Chest x-ray - 12/28/19 - Procedure: XRAY Chest 1v Indication: Reason For Exam: SOB Technique: Single AP view of the chest. Comparison: Chest radiograph dated 12/27/2019 Findings: Exam is again noted to be diagnostically limited due to underpenetration, patient rotation, and exclusion of part of the left hemithorax from the [id number]. Within these limitations: No significant change in appearance of visualized cardiomediastinal silhouette. Unchanged layering right pleural effusion with associated basilar airspace o pacities. Likely retrocardiac consolidation, unchanged. No apical pneumothoraces. Unchanged enteric and endotracheal tubes. Unchanged left PICC. Chest x-ray - 12/30/19 - FINDINGS: Distal tip of ET tube is above devika. Distal tip of the enteric tube is in stomach. Stable left arm PICC line with distal tip likely in the left subclavian vein. Cardiac silhouette is within normal limits allowing for portable and rotated technique. Low lung volumes with elevated left hemidiaphragm. Again noted is a moderate right effusion with patchy infiltrates in the right mid to lower lung. Probable retrocardiac infiltrates. IMPRESSION: Little interval change in moderate right effusion and pneumonia/aspiration. Suspected retrocardiac infiltrate. The distal tip of the left arm PICC line is not well seen past the level of the left mid subclavian vein. [place] location is in the cavoatrial junction. Recommend advancement. <MYCVCSECTION> Chest x-ray - 01/04/20 - Procedure: XRAY Chest 1v Indication: Dyspnea Technique: One view of the chest Comparison: 01/02/2020 Findings: Bilateral interstitial and airspace congestion, right pleural effusion, cardiomegaly persists, unchanged. Tube and line positions are unchanged Impression: Unchanged, over one day, findings as above. Chest x-ray - 01/06/20 - IMPRESSION: 1. Endotracheal tube terminates in the region of the lower thoracic trachea, approximately 2.6 cm above the devika. Enteric tube is difficult to visualize distally. 2. Similar opacities predominantly in the mid and lower lungs which may represent combination of pleural effusions and atelectasis versus pneumonia versus edema. Chest x-ray - 01/07/20 - Procedure: XRAY Chest 1v Indication: Shortness of breath Technique: One view of the chest Comparison: 01/06/2020 Findings: Stable satisfactory positions of endotracheal and orogastric tubes. Mild interstitial congestion and hazy ankle opacities are again demonstrated heidi aterally. There appears to be a small amount of pleural fluid bilaterally, probably unchanged. Impression: Unchanged, over one day, findings as above. Chest x-ray - 01/10/20 - Procedure: XRAY Chest 1v Indication: There is a breath Technique: One view of the chest Comparison: 01/08/2020 Findings: Interim conversion of endotracheal tube to a tracheostomy, appearing well positioned. Orogastric tube remains. Bilateral interstitial and airspace infiltrates versus edema persists, unchanged. Small bilateral pleural effusions persist, unchanged. Impression: Interim tracheostomy placement. No radiographically evident complic ation Stable bilateral pleural and parenchymal disease Microbiology Date/Time Source Procedure Growth Status 01/08/20 18:25 Indwelling Cath Urine Culture - Final NO GROWTH AFTER 48 HOURS Complete 01/08/20 18:25 Sputum Induced Gram Stain - Final Resulted 01/08/20 18:25 Sputum Culture - Preliminary A.baumanii Complx - Mdr Resulted 01/08/20 15:15 Blood Blood Culture - Preliminary NO GROWTH AFTER 48 HOURS Resulted Laboratory Tests Test 01/10/20 14:30 01/11/20 04:00 01/11/20 08:02 01/11/20 11:54 Cortisol 13.7 UG/DL White Blood Count 2.2 K/UL (4.8-10.8) L Red Blood Count 2.40 M/UL (4.20-5.40) L Hemoglobin 7.2 G/DL (12.0-16.0) L Hematocrit 21.8 % (37.0-47.0) L Mean Corpuscular Volume 91 FL (80-99) Mean Corpuscular Hemoglobin 30.0 PG (27.0-31.0) Mean Corpuscular Hemoglobin Concent 32.9 G/DL (32.0-36.0) Red Cell Distribution Width 20.6 % (11.6-14.8) H Platelet Count 101 K/UL (150-450) L Mean Platelet Volume 7.2 FL (6.5-10.1) Neutrophils (%) (Auto) % (45.0-75.0) Lymphocytes (%) (Auto) % (20.0-45.0) Monocytes (%) (Auto) % (1.0-10.0) Eosinophils (%) (Auto) % (0.0-3.0) Basophils (%) (Auto) % (0.0-2.0) Differential Total Cells Counted 100 Neutrophils % (Manual) 68 % (45-75) Lymphocytes % (Manual) 19 % (20-45) L Monocytes % (Manual) 9 % (1-10) Eosinophils % (Manual) 3 % (0-3) Basophils % (Manual) 1 % (0-2) Band Neutrophils 0 % (0-8) Platelet Estimate Decreased L Platelet Morphology Normal Hypochromasia 3+ Sodium Level 145 MMOL/L (136-145) Potassium Level 3.9 MMOL/L (3.5-5.1) Chloride Level 109 MMOL/L (98-107) H Carbon Dioxide Level 26 MMOL/L (21-32) Anion Gap 10 mmol/L (5-15) Blood Urea Nitrogen 39 mg/dL (7-18) H Creatinine 1.7 MG/DL (0.55-1.30) H Estimat Glomerular Filtration Rate 30.0 mL/min (>60) Glucose Level 136 MG/DL (74-106) H Calcium Level 8.0 MG/DL (8.5-10.1) L Arterial Blood pH 7.410 (7.350-7.450) 7.325 (7.350-7.450) Arterial Blood Partial Pressure CO2 40.5 mmHg (35.0-45.0) 54.3 mmHg (35.0-45.0) H Arterial Blood Partial Pressure O2 118.6 mmHg (75.0-100.0) H 98.9 mmHg (75.0-100.0) Arterial Blood HCO3 25.1 mmol/L (22.0-26.0) 27.7 mmol/L (22.0-26.0) H Arterial Blood Oxygen Saturation 98.6 % (95-100) 96.5 % (95-100) Arterial Blood Base Excess 0.4 (-2-2) 1.3 (-2-2) Eugene Test Positive Positive Current Medications Medications (Trade) Dose Ordered Sig/Shiraz Route PRN Reason Start Time Stop Time Status Last Admin Dose Admin Acetaminophen (Tylenol) 650 mg Q4H PRN NG Mild Pain (Pain Scale 1-3) 12/22/19 16:00 01/11/20 22:14 01/06/20 12:42 Acetaminophen (Tylenol) 650 mg Q4H PRN NG Temp >100.5 12/22/19 16:00 01/11/20 22:14 01/11/20 06:06 Acetazolamide (Diamox) 500 mg TWICE A DAY NG 01/02/20 18:00 02/01/20 17:59 01/11/20 09:48 Albuterol Sulfate (Proventil MDI) 2 puff Q4H PRN INH Shortness of Breath 12/24/19 10:30 03/23/20 10:29 Bacitracin (Bacitracin) 2 applic EVERY 12 HOURS TOPIC 01/06/20 21:00 03/12/20 08:59 01/11/20 09:53 Chlorhexidine Gluconate (Jessie-Hex 2%) 1 applic DAILY@1999 TOPIC 12/24/19 20:00 03/23/20 19:59 01/10/20 20:08 Chlorpromazine (Thorazine) 50 mg Q6H PRN IM agitation 12/30/19 02:30 01/29/20 02:29 01/10/20 16:07 Clotrimazole (Lotrimin) 1 applic EVERY 12 HOURS TOPIC 01/05/20 09:00 03/12/20 08:59 01/11/20 09:53 Dextrose (Dextrose 50%) 25 ml Q30M PRN IV Hypoglycemia 12/23/19 10:45 03/22/20 10:44 Dextrose (Dextrose 50%) 50 ml Q30M PRN IV Hypoglycemia 12/23/19 10:45 03/22/20 10:44 Diltiazem HCl (Cardizem Tab) 60 mg Q6HR NG 01/11/20 00:00 02/10/20 00:00 01/11/20 06:06 Docusate Sodium (Colace) 100 mg BID NG 12/25/19 09:00 01/24/20 08:59 01/10/20 08:51 Fentanyl Citrate 250 ml @ 0 mls/hr Q24H IV 01/10/20 10:42 01/12/20 10:41 01/10/20 10:53 Furosemide (Lasix) 100 mg Q6HR IV 01/05/20 12:00 01/30/20 11:59 01/11/20 06:07 Insulin Aspart (NovoLOG) EVERY 6 HOURS SUBQ 01/05/20 06:00 03/22/20 11:29 01/11/20 12:51 Magnesium Hydroxide (Mom) 30 ml HSPRN PRN NG Constipation 12/22/19 15:15 01/21/20 15:14 01/02/20 22:20 Metoclopramide HCl (Reglan) 5 mg Q6H IVP 01/05/20 09:15 02/04/20 09:14 01/11/20 09:54 Metoprolol Tartrate (Lopressor) 50 mg Q12HR NG 12/22/19 21:00 03/18/20 20:59 01/11/20 09:52 Midazolam HCl (Versed 2mg/2ml vial) 2 mg Q1H PRN IVP Agitation 01/10/20 17:15 01/17/20 17:14 01/11/20 12:21 Minocycline HCl (Minocin) 100 mg Q12HR ORAL 01/10/20 21:00 01/17/20 20:59 01/11/20 09:48 Nitroglycerin (Ntg) 0.4 mg Q5M PRN SL Prn Chest Pain 12/22/19 15:00 01/11/20 22:14 Ondansetron HCl (Zofran) 4 mg Q6H PRN IVP Nausea & Vomiting 12/22/19 15:15 01/11/20 15:14 Pantoprazole (Protonix) 40 mg EVERY 12 HOURS IVP 01/01/20 21:00 01/31/20 20:59 01/11/20 09:48 Polyethylene Glycol (Miralax) 17 gm BEDTIME NG 12/22/19 21:00 01/18/20 20:59 01/10/20 20:08 Potassium Chloride (K-Dur) 40 meq EVERY 12 HOURS NG 01/05/20 11:45 04/04/20 11:14 01/11/20 09:51 Quetiapine Fumarate (SEROqueL) 100 mg EVERY 8 HOURS ORAL 01/04/20 22:00 02/16/20 21:59 01/11/20 06:06 Aleisha Coronel MD Jan 11, 2020 13:45
--- NOTE | 2020-01-11 16:00 | NUR ---
NURSE NOTES: Patient cleaned and repositioned. Medications given.
[2020-01-11] MEDS: Bactrim Susp 20ml GT SCH (17:29)
--- NOTE | 2020-01-11 17:37 | Cardiology Progress Note ---
Subjective DATE OF SERVICE: Jan 11, 2020 Doing poorly - remains in ICU in critical condition with guarded prognosis. Remains on vent support - failed weaning trials; now s/p trach BP range remaining low normal range; she had hypotensive episodes yesterday. Remains COVID19 positive. Monitor: AFIb with rapid rates. Yesterday add'l doses of IV diltiazem were given for rapid rates. Persisting respiratory acidosis req'd intubation and mech ventilation - remains far from weaning. Had coffee ground material in NGTube and hematoma on right leg; anti-coagulation discont'd Venous Duplex: negative for DVT Renal fxn and free water deficit correcting CXR (01/10/20) unchg'd bilateral infiltrates and eff'n - s/p trach Objective Last 24 Hour Vital Signs Date Time Temp Pulse Resp B/P (MAP) Pulse Ox O2 Delivery O2 Flow Rate FiO2 01/11/20 17:29 135 139/112 01/11/20 17:00 134 24 135/112 (120) 86 01/11/20 16:00 Trach Collar 01/11/20 16:00 123 01/11/20 16:00 40 01/11/20 16:00 120 24 126/79 (95) 100 01/11/20 15:05 115 22 40 01/11/20 15:00 98 18 98/34 (55) 100 01/11/20 14:00 99 23 108/64 (79) 90 01/11/20 13:00 97 20 94/56 (69) 01/11/20 12:15 100 01/11/20 12:15 40 01/11/20 12:15 102 16 40 01/11/20 12:00 Trach Collar 01/11/20 12:00 99.2 102 20 92/45 (61) 100 01/11/20 12:00 105 01/11/20 12:00 40 01/11/20 11:00 106 20 110/99 (103) 100 01/11/20 10:50 40 01/11/20 10:46 108 24 40 01/11/20 10:00 104 18 100/63 (75) 01/11/20 09:52 110 108/63 01/11/20 09:00 105 18 106/55 (72) 01/11/20 08:00 Trach Collar 01/11/20 08:00 40 01/11/20 08:00 99.1 102 18 107/57 (74) 01/11/20 08:00 103 01/11/20 07:05 108 19 40 01/11/20 07:00 108 19 109/57 (74) 100 01/11/20 06:36 99.4 01/11/20 06:06 142 133/106 01/11/20 06:00 99.4 136 24 133/106 (115) 100 01/11/20 05:00 130 24 174/91 (118) 89 01/11/20 04:00 101.5 118 24 116/84 (95) 100 01/11/20 04:00 40 01/11/20 04:00 Mechanical Ventilator 01/11/20 03:06 104 01/11/20 03:01 122 23 40 01/11/20 03:00 109 20 112/66 (81) 100 01/11/20 02:00 105 19 126/67 (86) 100 01/11/20 01:00 109 23 182/143 (156) 100 01/11/20 00:00 Mechanical Ventilator 01/11/20 00:00 99.3 98 19 145/66 (92) 100 01/10/20 23:27 109 107/53 01/10/20 23:14 104 01/10/20 23:00 104 24 114/72 (86) 100 01/10/20 22:47 119 24 40 01/10/20 22:00 88 22 133/103 (113) 100 01/10/20 21:52 110 149/110 01/10/20 21:00 110 24 108/56 (73) 100 01/10/20 20:09 202 162/143 01/10/20 20:00 40 01/10/20 20:00 Mechanical Ventilator 01/10/20 20:00 100.5 161 25 162/143 (149) 100 01/10/20 19:45 145 01/10/20 19:16 132 27 40 01/10/20 19:00 125 22 117/76 (90) 100 01/10/20 18:00 125 24 111/61 (78) 100 ROS: unchanged from 12/12/19 HEENT: Orally intubated, Mechanically Ventilated, Thin secretions ET Tube, other - NGtube RHYTHM: NSR, ST LUNGS: diminished breath sounds, right-sided rhonchi CARDIAC: normal S1 and S2, irregularly irregular ABDOMEN: other - obese EXTREMITIES: moderate edema - mostly non pitting, other - hematoma right leg Laboratory Tests Test 01/11/20 04:00 01/11/20 08:02 01/11/20 11:54 White Blood Count 2.2 K/UL (4.8-10.8) L Red Blood Count 2.40 M/UL (4.20-5.40) L Hemoglobin 7.2 G/DL (12.0-16.0) L Hematocrit 21.8 % (37.0-47.0) L Mean Corpuscular Volume 91 FL (80-99) Mean Corpuscular Hemoglobin 30.0 PG (27.0-31.0) Mean Corpuscular Hemoglobin Concent 32.9 G/DL (32.0-36.0) Red Cell Distribution Width 20.6 % (11.6-14.8) H Platelet Count 101 K/UL (150-450) L Mean Platelet Volume 7.2 FL (6.5-10.1) Neutrophils (%) (Auto) % (45.0-75.0) Lymphocytes (%) (Auto) % (20.0-45.0) Monocytes (%) (Auto) % (1.0-10.0) Eosinophils (%) (Auto) % (0.0-3.0) Basophils (%) (Auto) % (0.0-2.0) Differential Total Cells Counted 100 Neutrophils % (Manual) 68 % (45-75) Lymphocytes % (Manual) 19 % (20-45) L Monocytes % (Manual) 9 % (1-10) Eosinophils % (Manual) 3 % (0-3) Basophils % (Manual) 1 % (0-2) Band Neutrophils 0 % (0-8) Platelet Estimate Decreased L Platelet Morphology Normal Hypochromasia 3+ Sodium Level 145 MMOL/L (136-145) Potassium Level 3.9 MMOL/L (3.5-5.1) Chloride Level 109 MMOL/L (98-107) H Carbon Dioxide Level 26 MMOL/L (21-32) Anion Gap 10 mmol/L (5-15) Blood Urea Nitrogen 39 mg/dL (7-18) H Creatinine 1.7 MG/DL (0.55-1.30) H Estimat Glomerular Filtration Rate 30.0 mL/min (>60) Glucose Level 136 MG/DL (74-106) H Calcium Level 8.0 MG/DL (8.5-10.1) L Arterial Blood pH 7.410 (7.350-7.450) 7.325 (7.350-7.450) Arterial Blood Partial Pressure CO2 40.5 mmHg (35.0-45.0) 54.3 mmHg (35.0-45.0) H Arterial Blood Partial Pressure O2 118.6 mmHg (75.0-100.0) H 98.9 mmHg (75.0-100.0) Arterial Blood HCO3 25.1 mmol/L (22.0-26.0) 27.7 mmol/L (22.0-26.0) H Arterial Blood Oxygen Saturation 98.6 % (95-100) 96.5 % (95-100) Arterial Blood Base Excess 0.4 (-2-2) 1.3 (-2-2) Eugene Test Positive Positive Microbiology Date/Time Source Procedure Growth Status 01/08/20 18:25 Indwelling Cath Urine Culture - Final NO GROWTH AFTER 48 HOURS Complete 01/08/20 18:25 Sputum Induced Gram Stain - Final Resulted 01/08/20 18:25 Sputum Culture - Preliminary A.baumanii Complx - Mdr Resulted Assessment/Plan Assessment/Plan CRITICAL AND GUARDED Acute respiratory failure - s/p trach Acute on chronic respiratory acidosis AFiB with labile heart rates CHF, ac/chr diastolic BLE edema Sepsis with shock obesity COPD with bronchospasm Acute renal failure - worsening Pleural effusion GI bleeding Anemia - multifactorial, now worse Covid 19 PNA Hypokalemia Dehydration/hypernatremia corrected Hypertension/HHD with labile BP - now stable range. Vent support PRBC transfusion for hb below 7gm/dl Monitor acid/base parameters. Antimicrobials Titrate rate-control meds -advance diltiazem and metoprolol with hold parameters for low BP. DC apixaban - hold anticoagulation due to GI bleeding; resume with GI clearance. Continued edging machine catcher Diuresis based on clinical parameters; trend BNP Potassium and free water suppl as needed Agree with DNR Jerome Meek MD Jan 11, 2020 17:36
--- NOTE | 2020-01-11 19:30 | NUR ---
NURSE NOTES: Pt report received from RAIN FELIPE RN. pt remains stable. vital signs stable. pt is alert and oriented times 1, able to respond to light stimuli . pt is trach vented sating at 97% O2, no acute resp distress noted. pts is on security monitor showing ST, no acute cardiac abnormalities noted. pt bed is low, locked, armed, call light within reach, bed rails up times 3. will follow plan of care.
--- NOTE | 2020-01-11 19:43 | NUR ---
NURSE HAND-OFF REPORT: Latest Vital Signs: Temperature 99.0 , Pulse 119 , B/P 140 /125 , Respiratory Rate 26 , O2 SAT 78 , Trach Collar, O2 Flow Rate . Vital Sign Comment: STABLE but HR elevated due to agitation. EKG Rhythm: Atrial Fibrillation Rhythm change?: N MD Notified?: N Response: Latest Abreu Fall Score: 75 Fall Risk: High Risk Safety Measures: Call light Within Reach, Bed Alarm Zone 1, Side Rails Side Rails x3, Bed position Low and Locked. Fall Precautions: Yellow Socks Yellow Gown Door Sign Patient Fall Education Report given to Chava COHEN. Plan of care endorsed.
[2020-01-11] MEDS: Miralax 17gm pkt NG SCH (20:58)
[2020-01-11] MEDS: Dyna-Hex 2% Top Sol 2oz TOPIC SCH (20:58)
[2020-01-11] MEDS ORDERED: NS 275ml ONE (22:22)
[2020-01-11] MEDS ORDERED: NS 500ML ONE (22:22)
[2020-01-12] VITALS (23 sets, daily range): BP systolic 105–166; BP diastolic 62–123
--- NOTE | 2020-01-12 00:21 | Psych Consult Progress Note ---
Psychiatry Progress Note Psychiatry Progress Note Subjective cont to be agitated and on bilat restraints. Dr. Dumont requested to increase antipsychotics Medications Current Medications Medications (Trade) Dose Ordered Sig/Shiraz Route PRN Reason Start Time Stop Time Status Last Admin Dose Admin Acetazolamide (Diamox) 500 mg TWICE A DAY NG 01/02/20 18:00 02/01/20 17:59 01/11/20 17:29 Albuterol Sulfate (Proventil MDI) 2 puff Q4H PRN INH Shortness of Breath 12/24/19 10:30 03/23/20 10:29 Bacitracin (Bacitracin) 2 applic EVERY 12 HOURS TOPIC 01/06/20 21:00 03/12/20 08:59 01/11/20 21:21 Chlorhexidine Gluconate (Jessie-Hex 2%) 1 applic DAILY@1999 TOPIC 12/24/19 20:00 03/23/20 19:59 01/11/20 20:58 Chlorpromazine (Thorazine) 50 mg Q6H PRN IM agitation 12/30/19 02:30 01/29/20 02:29 01/11/20 18:15 Clotrimazole (Lotrimin) 1 applic EVERY 12 HOURS TOPIC 01/05/20 09:00 03/12/20 08:59 01/11/20 21:01 Dextrose (Dextrose 50%) 25 ml Q30M PRN IV Hypoglycemia 12/23/19 10:45 03/22/20 10:44 Dextrose (Dextrose 50%) 50 ml Q30M PRN IV Hypoglycemia 12/23/19 10:45 03/22/20 10:44 Diltiazem HCl (Cardizem Tab) 60 mg Q6HR NG 01/11/20 00:00 02/10/20 00:00 01/11/20 17:29 Docusate Sodium (Colace) 100 mg BID NG 12/25/19 09:00 01/24/20 08:59 01/10/20 08:51 Fentanyl Citrate 250 ml @ 0 mls/hr Q24H IV 01/10/20 10:42 01/12/20 10:41 01/10/20 10:53 Furosemide (Lasix) 100 mg Q6HR IV 01/05/20 12:00 01/30/20 11:59 01/11/20 17:28 Insulin Aspart (NovoLOG) EVERY 6 HOURS SUBQ 01/05/20 06:00 03/22/20 11:29 01/11/20 12:51 Magnesium Hydroxide (Mom) 30 ml HSPRN PRN NG Constipation 12/22/19 15:15 01/21/20 15:14 01/02/20 22:20 Metoclopramide HCl (Reglan) 5 mg Q6H IVP 01/05/20 09:15 02/04/20 09:14 01/11/20 21:01 Metoprolol Tartrate (Lopressor) 50 mg Q12HR NG 12/22/19 21:00 03/18/20 20:59 01/11/20 20:57 Midazolam HCl (Versed 2mg/2ml vial) 2 mg Q1H PRN IVP Agitation 01/10/20 17:15 01/17/20 17:14 01/11/20 17:28 Minocycline HCl (Minocin) 100 mg Q12HR ORAL 01/10/20 21:00 01/17/20 20:59 01/11/20 21:00 Pantoprazole (Protonix) 40 mg EVERY 12 HOURS IVP 01/01/20 21:00 01/31/20 20:59 01/11/20 20:57 Polyethylene Glycol (Miralax) 17 gm BEDTIME NG 12/22/19 21:00 01/18/20 20:59 01/11/20 20:58 Potassium Chloride (K-Dur) 40 meq EVERY 12 HOURS NG 01/05/20 11:45 04/04/20 11:14 01/11/20 20:57 Quetiapine Fumarate (SEROqueL) 150 mg EVERY 8 HOURS ORAL 01/11/20 22:00 02/25/20 21:59 01/11/20 22:01 Trimethoprim/ Sulfamethoxazole (Bactrim-DS) 40 ml EVERY 12 HOURS GT 01/11/20 18:00 01/18/20 17:59 01/11/20 17:29 Neurological/Psychiatric: Reports: anxiety, depressed, emotional problems Allergies: Coded Allergies: ERYTHROMYCIN BASE (Verified Allergy, Severe, 12/12/19) HALOPERIDOL (Verified Allergy, Unknown, 12/12/19) VANCOMYCIN (Unverified Adverse Reaction, Intermediate, Shortness of Breath, 12/12/19) Objective Data Height (Feet): 5 Height (Inches): 6.00 Weight (Pounds): 343 General Appearance: lethargic, other - trach vent Additional Comments: confused. Mood is anxious. Affect is flat. Assessment/Plan Mitchell I: thorazin IM seroquel 50 q 8 hr midazolam bilat soft restraints Status: stable Status Narrative thorazin IM seroquel 50 q 8 hr midazolam bilat soft restraints Assessment/Plan: thorazin IM seroquel 100 q 8 hr midazolam bilat soft restraints Harris Ballesteros MD Jan 12, 2020 00:21
[2020-01-12] MEDS: dilTIAZem HCl 60mg tab NG SCH ×5 (00:51→23:14)
[2020-01-12] MEDS: NovoLOG Insulin Flexpen SUBQ SCH ×5 (00:52→23:45)
--- NOTE | 2020-01-12 01:00 | NUR ---
NURSE NOTES: pt assessed. vital signs stable. no apparent/ acute distress noted at this moment.
--- NOTE | 2020-01-12 03:10 | NUR ---
NURSE NOTES: pt turned, repositioned and cleaned. pt remains stable.
[2020-01-12] MEDS: Metoclopramide 10mg/2ml Inj IVP SCH ×4 (03:24→19:58)
--- NOTE | 2020-01-12 03:24 | NUR ---
NURSE NOTES: pts lab/ blood work has been drawn.
[2020-01-12 05:22] LABS: HEMATOCRIT 23.9 % (37.0-47.0); HEMOGLOBIN 7.7 G/DL (12.0-16.0); MEAN CORPUSCULAR VOLUME 92 FL (80-99); PLATELET COUNT 106 K/UL (150-450); RED BLOOD COUNT 2.61 M/UL (4.20-5.40); RED CELL DISTRIBUTION WIDTH 20.4 % (11.6-14.8); WHITE BLOOD COUNT 2.3 K/UL (4.8-10.8)
[2020-01-12] MEDS: Midazolam 2mg/2ml Inj IVP PRN ×5 (05:25→19:55)
[2020-01-12 06:13] LABS: CALCIUM 8.7 MG/DL (8.5-10.1); CREATININE 1.7 MG/DL (0.55-1.30); POTASSIUM 4.1 MMOL/L (3.5-5.1)
--- NOTE | 2020-01-12 07:25 | NUR ---
NURSE HAND-OFF REPORT: Latest Vital Signs: Temperature 98.7 , Pulse 167 , B/P 133 /91 , Respiratory Rate 27 , O2 SAT 95 , Trach Collar, O2 Flow Rate . Vital Sign Comment: [STABLE] EKG Rhythm: ST BBB Rhythm change?: N Notified?: N -MD Gaviota UNDERWOOD Response: Latest Abreu Fall Score: 75 Fall Risk: High Risk Safety Measures: Call light Within Reach, Bed Alarm Zone 1, Side Rails Side Rails x3, Bed position Low and Locked. Fall Precautions: Yellow Socks Yellow Gown Door Sign Patient Fall Education Report given to [URBAN COHEN].
--- NOTE | 2020-01-12 07:30 | NUR ---
NURSE NOTES: Received report from Jeramy Butt. Pt is lying in bed, trached on vent, with settigs of AC18, TV 600, FiO2 40%, PEEP 5. HOB elevated at all times, on GTF Vital AF 45cc/hr. Tolerating well. PICC @ L upper arm TL. Urinary catheter is intact and patent.. Bed in lowest position, locked, call light within reached. Will continue to monitor pt.
--- NOTE | 2020-01-12 08:24 | General Progress Note ---
Subjective ROS Limited/Unobtainable: No Allergies: Coded Allergies: ERYTHROMYCIN BASE (Verified Allergy, Severe, 12/12/19) HALOPERIDOL (Verified Allergy, Unknown, 12/12/19) VANCOMYCIN (Unverified Adverse Reaction, Intermediate, Shortness of Breath, 12/12/19) Objective Last 24 Hour Vital Signs Date Time Temp Pulse Resp B/P (MAP) Pulse Ox O2 Delivery O2 Flow Rate FiO2 01/12/20 07:24 108 27 40 01/12/20 06:34 150 117/90 01/12/20 06:00 155 28 117/90 (99) 95 01/12/20 05:00 147 26 166/82 (110) 91 01/12/20 04:00 98.7 147 26 105/83 (90) 98 01/12/20 04:00 40 01/12/20 04:00 Trach Collar 01/12/20 03:00 135 21 123/102 (109) 99 01/12/20 02:45 122 27 40 01/12/20 02:00 114 26 131/75 (93) 99 01/12/20 01:00 114 26 152/70 (97) 96 01/12/20 00:51 129 168/105 01/12/20 00:00 Trach Collar 01/12/20 00:00 98.9 122 25 131/68 (89) 95 01/12/20 00:00 40 01/12/20 00:00 108 01/11/20 23:00 118 25 109/54 (72) 95 01/11/20 22:57 115 27 40 01/11/20 22:00 120 24 125/81 (96) 98 01/11/20 21:00 152 25 143/100 (114) 99 01/11/20 20:57 149 167/100 01/11/20 20:00 98.5 136 25 157/94 (115) 98 01/11/20 20:00 Trach Collar 01/11/20 20:00 126 01/11/20 20:00 40 01/11/20 19:11 119 26 40 01/11/20 19:00 129 25 140/125 (130) 01/11/20 18:00 123 26 127/66 (86) 78 01/11/20 17:29 135 139/112 01/11/20 17:00 134 24 135/112 (120) 86 01/11/20 16:00 99.0 01/11/20 16:00 Trach Collar 01/11/20 16:00 123 01/11/20 16:00 40 01/11/20 16:00 120 24 126/79 (95) 100 01/11/20 15:05 115 22 40 01/11/20 15:00 98 18 98/34 (55) 100 01/11/20 14:00 99 23 108/64 (79) 90 01/11/20 13:00 97 20 94/56 (69) 01/11/20 12:15 100 01/11/20 12:15 40 01/11/20 12:15 102 16 40 01/11/20 12:00 Trach Collar 01/11/20 12:00 99.2 102 20 92/45 (61) 100 01/11/20 12:00 105 01/11/20 12:00 40 01/11/20 11:00 106 20 110/99 (103) 100 01/11/20 10:50 40 01/11/20 10:46 108 24 40 01/11/20 10:00 104 18 100/63 (75) 01/11/20 09:52 110 108/63 01/11/20 09:00 105 18 106/55 (72) Intake and Output 01/11/20 01/12/20 19:00 07:00 Intake Total 540 ml 495 ml Output Total 1150 ml 510 ml Balance -610 ml -15 ml Tube Feeding 540 ml 495 ml Output Urine Total 1150 ml 510 ml # Bowel Movements 2 Laboratory Tests 01/11/20 11:54: Arterial Blood pH 7.325L, Arterial Blood Partial Pressure CO2 54.3H, Arterial Blood Partial Pressure O2 98.9, Arterial Blood HCO3 27.7H, Arterial Blood Oxygen Saturation 96.5, Arterial Blood Base Excess 1.3, Eugene Test Positive 01/12/20 04:00: White Blood Count 2.3L, Red Blood Count 2.61L, Hemoglobin 7.7L, Hematocrit 23.9L , Mean Corpuscular Volume 92, Mean Corpuscular Hemoglobin 29.5, Mean Corpuscular Hemoglobin Concent 32.2, Red Cell Distribution Width 20.4H, Platelet Count 106L, Mean Platelet Volume 7.1, Neutrophils (%) (Auto) , Lymphocytes (%) (Auto) , Monocytes (%) (Auto) , Eosinophils (%) (Auto) , Basophils (%) (Auto) , Sodium Level 151H, Potassium Level 4.1, Chloride Level 115H, Carbon Dioxide Level 27, Anion Gap 9, Blood Urea Nitrogen 40H, Creatinine 1.7H, Estimat Glomerular Filtration Rate 30.0, Glucose Level 144H, Calcium Level 8.7, Ferritin 1042H, C-Reactive Protein, Quantitative 30.4H, Immunoglobulin G [Pending], Immunoglobulin A [Pending], Immunoglobulin M [Pending], Immunofixation Screen [Pending] 01/12/20 06:37: POC Whole Blood Glucose [Pending] Height (Feet): 5 Height (Inches): 6.00 Weight (Pounds): 343 General Appearance: no apparent distress EENT: normal ENT inspection Neck: supple Cardiovascular: normal rate Respiratory/Chest: decreased breath sounds Abdomen: non tender, soft, hypoactive bowel sounds Extremities: non-tender Assessment/Plan Problem List: (1) CKD (chronic kidney disease) stage 3, GFR 30-59 ml/min ICD Codes: N18.3 - Chronic kidney disease, stage 3 (moderate) SNOMED: 994514091 (2) COPD (chronic obstructive pulmonary disease) ICD Codes: J44.9 - Chronic obstructive pulmonary disease, unspecified SNOMED: 91757182 (3) Smoker ICD Codes: F17.200 - Nicotine dependence, unspecified, uncomplicated SNOMED: 21710248 (4) GERD (gastroesophageal reflux disease) ICD Codes: K21.9 - Gastro-esophageal reflux disease without esophagitis SNOMED: 926100535 (5) Atrial fibrillation with RVR ICD Codes: I48.91 - Unspecified atrial fibrillation SNOMED: 986847752804396 Status: stable Assessment/Plan: pepcid fu H&H monitor labs bowel regimen fu cardiology recs icu care ppi cbc in am s/p Trach and PEG GTF monitor for residuals Mervin Victoria MD Jan 12, 2020 08:24
--- NOTE | 2020-01-12 08:30 | NUR ---
NURSE NOTES: Pt. with elevated temp. 100.7 cooling measure applied and called Dr. Dumont to renew Tylenol for temp. order. Awaiting for response.
--- NOTE | 2020-01-12 08:31 | Pulmonolgy Critical Care Note ---
AndrésLuz CLIENT SERVICE COORDINATOR 01/12/20 0831: Critical Care - Asmt/Plan Assessment/Plan: ASSESSMENT acute hypoxemic hypercapnic resp failure, requiring intubation 12/22 failure to wean s/p trach 01/08 COVID 19 PNA sepsis fungemia UTI with E coli ESBL UTI VRE possible aspiration PNA Moderate R pleural effusion COPD Bronchospasm Atrial fibrillation with rapid ventricular response Congestive heart failure Acute renal failure on CKD Severe anemia Probable GI bleeding dysphagia, s/p PEG 01/08 Thrombocytopenia Status post ground fall Tobacco dependency Morbid obesity probably GARY Homeless R knee edema and hematoma, possible cellulitis PLAN OF CARE ICU intubated 12/22 MDI Albuterol in line with vent fup with CXR and ABG failed weaning trials s/p 01/08 trach started on CPAP trials 01/10 as tolerated 01/10 developed pCo@ 54 after 1 hr and RT palced back on vent AC will continue with trails as tolerated will attempt TC as able CXR 01/[address] effusion hold on thoracentesis for now CXR 01/09 stable off Fentanyl gtt monitor hemodynamic status closely s/p steroids IV ( started 12/23) continue for total of 10 days till 01/02 s/p Remdesivir (started 12/24 ), dc 12/30 initial diagnoses with COVID 19 at [facility] 11/29, was not hypoxic and not intubated, was not treated with Remdesivivr , only received empiric abx for PNA sedation with Fentanyl gtt and versed prn - DVT prophylaxis with Lovenox prior Venous Duplex BLE -NGT COVID 19 by PCR 12/22 positive isolation IL 6 52 , initial CRP 15.6, ferritin 769, fup with inflammatory markers CRP 12/29 - down to 11.8 ; ferritin down to 503 CRP 01/03 -10.7 , CRP rising 01/11- 30.4 on diuresis with Lasix , monitor volumes closely creat remains stable rate control- per cardio recs: monitor volumes trend pro BNP ECHO with pEF no evidence of WMA GI prophylaxis with PPI s/p Venofer x 2 s/p blood transfusion 12/25 monitor HH with goal to keep Hgb >7 completed IV Venofer x5 days ( 01/04- 01/08) s/p 1 u PRBC 01/08 ( going for surgery, Hgb 6.7) GI procedure when stable monitor PLT counts s/p PEG 01/09, asp precautions, GT site care renal US no hydro, BL nonobstructive stones s/p IV hydration, now resumed again per nephro monitor renal parameters, lytes , e/lyte management as per nephro recs creat stable SCX 01/07 + ACB MDR BCX 01/07 NGTD UCX 01/07 NGT stool C dif 01/10 NGT s/p Polymyxin , Zyvox and Zosyn -as per ID recs, now on Minocycline 01/09- for possible cellulitis R leg cooling blanket prn fevers prior X ray R knee given fall 12/15 , large hematoma, swelling-no fx or dislocation ice R knee and elevate CT head no acute IC pathology fall precautions evaluated by bioethics -> DNR/DNI status appropriate given current critical condition , grave prognosis and multiple comorbidities, would recommend DNR/DNI status as well DNR/DNI status case discussed and evaluated by supervising physician ivy mccarty for a consult! Critical Care - Objective Last 24 Hour Vital Signs Date Time Temp Pulse Resp B/P (MAP) Pulse Ox O2 Delivery O2 Flow Rate FiO2 01/12/20 07:24 108 27 40 01/12/20 06:34 150 117/90 01/12/20 06:00 155 28 117/90 (99) 95 01/12/20 05:00 147 26 166/82 (110) 91 01/12/20 04:00 98.7 147 26 105/83 (90) 98 01/12/20 04:00 40 01/12/20 04:00 Trach Collar 01/12/20 03:00 135 21 123/102 (109) 99 01/12/20 02:45 122 27 40 01/12/20 02:00 114 26 131/75 (93) 99 01/12/20 01:00 114 26 152/70 (97) 96 01/12/20 00:51 129 168/105 01/12/20 00:00 Trach Collar 01/12/20 00:00 98.9 122 25 131/68 (89) 95 01/12/20 00:00 40 01/12/20 00:00 108 01/11/20 23:00 118 25 109/54 (72) 95 01/11/20 22:57 115 27 40 01/11/20 22:00 120 24 125/81 (96) 98 01/11/20 21:00 152 25 143/100 (114) 99 01/11/20 20:57 149 167/100 01/11/20 20:00 98.5 136 25 157/94 (115) 98 01/11/20 20:00 Trach Collar 01/11/20 20:00 126 01/11/20 20:00 40 01/11/20 19:11 119 26 40 01/11/20 19:00 129 25 140/125 (130) 01/11/20 18:00 123 26 127/66 (86) 78 01/11/20 17:29 135 139/112 01/11/20 17:00 134 24 135/112 (120) 86 01/11/20 16:00 99.0 01/11/20 16:00 Trach Collar 01/11/20 16:00 123 01/11/20 16:00 40 01/11/20 16:00 120 24 126/79 (95) 100 01/11/20 15:05 115 22 40 01/11/20 15:00 98 18 98/34 (55) 100 01/11/20 14:00 99 23 108/64 (79) 90 01/11/20 13:00 97 20 94/56 (69) 01/11/20 12:15 100 01/11/20 12:15 40 01/11/20 12:15 102 16 40 01/11/20 12:00 Trach Collar 01/11/20 12:00 99.2 102 20 92/45 (61) 100 01/11/20 12:00 105 01/11/20 12:00 40 01/11/20 11:00 106 20 110/99 (103) 100 01/11/20 10:50 40 01/11/20 10:46 108 24 40 01/11/20 10:00 104 18 100/63 (75) 01/11/20 09:52 110 108/63 01/11/20 09:00 105 18 106/55 (72) Objective: CONDITION: critical General Appearance: morbidly obese , sedated, generalized anasarca ; on vent AC 600-18-40% PEEP 5 Lines, tubes and drains: LUE PICC new , intact HEENT: normocephalic, atraumatic, anicteric, NGT in , Neck: trach with Shiley # 8, secretions moderate amount, yellow color, thick consistency Respiratory/Chest: chest wall non-tender, no accessory muscle use, BS overall clear, Cardiovascular/Chest: irregularly irregular - A fib , tachy , distant heart sounds, Abdomen: normal bowel sounds, non tender , obese, soft : [place] Extremities: no calf tenderness, moderate edema - +3 BLE, R knee with large hematoma, edema, Skin Exam: warm/dry, multiple tattoos Neurologic: sedated Musculoskeletal: normal muscle bulk Micro: Microbiology Date/Time Source Procedure Growth Status 01/11/20 04:20 Stool Clostridium difficile Toxin Assay - Final Complete Accucheck: 140 Critical Care - Subjective ROS Limited/Unobtainable: Yes Interval Events: not tolerated SBT 01/10 after 1 hr ABG with rise in pCO2 54, decline in pH 7.3 ( done on CPAP PS8), placed back to vent AC last CXR noted no fevers for 24 hrs leukopenic CRP trending up 30.4 Condition: critical IV Access: PICC - LUE PICC intact EKG Rhythm: Atrial Fibrillation FI02: 40 Vent Support Breath Rate: 18 Vent Support Mode: AC Vent Tidal Volume: 600 Sputum Amount: Small PEEP: 5.0 PIP: 35 Tube Feeding Amount: 45 I&O: Intake and Output 01/11/20 01/12/20 19:00 07:00 Intake Total 540 ml 495 ml Output Total 1150 ml 510 ml Balance -610 ml -15 ml Tube Feeding 540 ml 495 ml Output Urine Total 1150 ml 510 ml # Bowel Movements 2 CXR: CXR 01/09 Interim tracheostomy placement. No radiographically evident complication Stable bilateral pleural and parenchymal disease Colt Keen MD 01/12/20 1456: Critical Care - Asmt/Plan Assessment/Plan: ASSESSMENT acute hypoxemic hypercapnic resp failure, requiring intubation 12/22 s/p trach 01/08 COVID 19 PNA sepsis fungemia UTI with E coli ESBL UTI VRE possible aspiration PNA - s/p treatment Moderate R pleural effusion COPD Atrial fibrillation with RVR CHF Acute renal failure on CKD Severe anemia dysphagia, s/p PEG 01/08 Thrombocytopenia Status post ground fall Tobacco dependency Morbid obesity probable GARY R knee edema and hematoma, possible cellulitis PLAN OF CARE s/p Trach, cont PS trials as tolerated Monitor ABG Monitor effusion s/p steroids IV ( started 12/23) continue for total of 10 days till 01/02 s/p Remdesivir (started 12/24 ), dc 12/30 initial diagnoses with COVID 19 at [facility] 11/29, was not hypoxic and not intubated, was not treated with Remdesivivr , only received empiric abx for PNA DVT prophylaxis with Lovenox on diuresis with Lasix, decreased by Dr. Dumont monitor volumes closely creat remains stable consider d/c diamox afib rate control GI prophylaxis with PPI monitor HH with goal to keep Hgb >7 Resume anticoagulation when cleared by GI s/p PEG 01/09, asp precautions, SCX 01/07 + ACB MDR BCX 01/07 NGTD UCX 01/07 NGT stool C dif 01/10 NGT s/p Polymyxin , Zyvox and Zosyn -as per ID recs, now on Minocycline 01/09- for possible cellulitis R leg previously evaluated by bioethics -> DNR/DNI status appropriate CC Time: 35 min Luz Bowen NP Jan 12, 2020 08:31 Colt Keen MD Jan 12, 2020 14:56
[2020-01-12] MEDS: Docusate 100mg/10ml Liq NG SCH ×2 (08:55→17:26)
[2020-01-12] MEDS: Minocycline HCl 50mg cap ORAL SCH ×2 (08:56→19:59)
[2020-01-12] MEDS: Metoprolol Tartrate 50mg tab NG SCH ×2 (08:56→20:02)
[2020-01-12] MEDS: Pantoprazole Inj IVP SCH ×2 (08:57→19:58)
--- NOTE | 2020-01-12 09:25 | Surgery Progress Note ---
Surgery Progress Note Subjective Procedure Performed tracheostomy Symptoms: improved, tolerating diet, passing flatus Objective Last 24 Hour Vital Signs Date Time Temp Pulse Resp B/P (MAP) Pulse Ox O2 Delivery O2 Flow Rate FiO2 01/12/20 08:56 167 133/91 01/12/20 07:24 108 27 40 01/12/20 06:34 150 117/90 01/12/20 06:00 155 28 117/90 (99) 95 01/12/20 05:00 147 26 166/82 (110) 91 01/12/20 04:00 141 01/12/20 04:00 98.7 147 26 105/83 (90) 98 01/12/20 04:00 40 01/12/20 04:00 Trach Collar 01/12/20 03:00 135 21 123/102 (109) 99 01/12/20 02:45 122 27 40 01/12/20 02:00 114 26 131/75 (93) 99 01/12/20 01:00 114 26 152/70 (97) 96 01/12/20 00:51 129 168/105 01/12/20 00:00 Trach Collar 01/12/20 00:00 98.9 122 25 131/68 (89) 95 01/12/20 00:00 40 01/12/20 00:00 108 01/11/20 23:00 118 25 109/54 (72) 95 01/11/20 22:57 115 27 40 01/11/20 22:00 120 24 125/81 (96) 98 01/11/20 21:00 152 25 143/100 (114) 99 01/11/20 20:57 149 167/100 01/11/20 20:00 98.5 136 25 157/94 (115) 98 01/11/20 20:00 Trach Collar 01/11/20 20:00 126 01/11/20 20:00 40 01/11/20 19:11 119 26 40 01/11/20 19:00 129 25 140/125 (130) 01/11/20 18:00 123 26 127/66 (86) 78 01/11/20 17:29 135 139/112 01/11/20 17:00 134 24 135/112 (120) 86 01/11/20 16:00 99.0 01/11/20 16:00 Trach Collar 01/11/20 16:00 123 10/2/20 16:00 40 01/11/20 16:00 120 24 126/79 (95) 100 01/11/20 15:05 115 22 40 01/11/20 15:00 98 18 98/34 (55) 100 01/11/20 14:00 99 23 108/64 (79) 90 01/11/20 13:00 97 20 94/56 (69) 01/11/20 12:15 100 01/11/20 12:15 40 01/11/20 12:15 102 16 40 01/11/20 12:00 Trach Collar 01/11/20 12:00 99.2 102 20 92/45 (61) 100 01/11/20 12:00 105 01/11/20 12:00 40 01/11/20 11:00 106 20 110/99 (103) 100 01/11/20 10:50 40 01/11/20 10:46 108 24 40 01/11/20 10:00 104 18 100/63 (75) 01/11/20 09:52 110 108/63 I&O Intake and Output 01/11/20 01/12/20 19:00 07:00 Intake Total 540 ml 495 ml Output Total 1150 ml 510 ml Balance -610 ml -15 ml Tube Feeding 540 ml 495 ml Output Urine Total 1150 ml 510 ml # Bowel Movements 2 Dressing: saturated Cardiovascular: RSR Respiratory: decreased breath sounds Abdomen: non-tender, present bowel sounds Extremities: edema, cyanosis Laboratory Tests Test 01/11/20 11:54 01/12/20 04:00 01/12/20 06:37 Arterial Blood pH 7.325 (7.350-7.450) Arterial Blood Partial Pressure CO2 54.3 mmHg (35.0-45.0) H Arterial Blood Partial Pressure O2 98.9 mmHg (75.0-100.0) Arterial Blood HCO3 27.7 mmol/L (22.0-26.0) H Arterial Blood Oxygen Saturation 96.5 % (95-100) Arterial Blood Base Excess 1.3 (-2-2) Eugene Test Positive White Blood Count 2.3 K/UL (4.8-10.8) L Red Blood Count 2.61 M/UL (4.20-5.40) L Hemoglobin 7.7 G/DL (12.0-16.0) L Hematocrit 23.9 % (37.0-47.0) L Mean Corpuscular Volume 92 FL (80-99) Mean Corpuscular Hemoglobin 29.5 PG (27.0-31.0) Mean Corpuscular Hemoglobin Concent 32.2 G/DL (32.0-36.0) Red Cell Distribution Width 20.4 % (11.6-14.8) H Platelet Count 106 K/UL (150-450) L Mean Platelet Volume 7.1 FL (6.5-10.1) Neutrophils (%) (Auto) % (45.0-75.0) Lymphocytes (%) (Auto) % (20.0-45.0) Monocytes (%) (Auto) % (1.0-10.0) Eosinophils (%) (Auto) % (0.0-3.0) Basophils (%) (Auto) % (0.0-2.0) Sodium Level 151 MMOL/L (136-145) H Potassium Level 4.1 MMOL/L (3.5-5.1) Chloride Level 115 MMOL/L (98-107) H Carbon Dioxide Level 27 MMOL/L (21-32) Anion Gap 9 mmol/L (5-15) Blood Urea Nitrogen 40 mg/dL (7-18) H Creatinine 1.7 MG/DL (0.55-1.30) H Estimat Glomerular Filtration Rate 30.0 mL/min (>60) Glucose Level 144 MG/DL (74-106) H Calcium Level 8.7 MG/DL (8.5-10.1) Ferritin 1042 NG/ML (8-388) H C-Reactive Protein, Quantitative 30.4 mg/dL (0.00-0.90) H Immunoglobulin G Pending Immunoglobulin A Pending Immunoglobulin M Pending Immunofixation Screen Pending POC Whole Blood Glucose Pending Plan Problems: (1) Urinary tract infection (2) CHF exacerbation (3) History of schizophrenia (4) Atrial fibrillation with RVR (5) Schizophrenia (6) GERD (gastroesophageal reflux disease) (7) Smoker (8) Atrial fibrillation with rapid ventricular response (9) Lymphadema (10) COPD (chronic obstructive pulmonary disease) (11) CKD (chronic kidney disease) stage 3, GFR 30-59 ml/min (12) NATALIE (acute kidney injury) (13) Dehydration (14) Dysphagia (15) UTI (urinary tract infection) (16) UGI bleed (17) ESBL (extended spectrum beta-lactamase) producing bacteria infection (18) Constipation (19) Lactic acidosis (20) Tinea cruris (21) Onychomycosis (22) Emesis (23) Essential hypertension (24) Anemia (25) Cough (26) Depression (27) Depression (28) Edema (29) Rash (30) Opiate dependence (31) Opiate dependence (32) Opiate dependence (33) Opiate dependence (34) Pyelonephritis (35) Sepsis (36) UTI (urinary tract infection) (37) Nausea and vomiting (38) Abdominal pain Assessment & Plan: [age]-year-old female obese white abdominal pain deep tissue injury identified limited mobility on HD. KUB noted tube in place continue meds feeds Does not seem obstructed We will monitor lines noted. plan change resume tube feeds labs okay FINDINGS: Lower thorax: Obscuration of the left costophrenic angle suggestive of pleural effusion. Intraperitoneal space: No free air. Gastrointestinal tract: Unremarkable. No dilation. Bones/joints: Unremarkable. Tubes, lines and devices: The nasogastric tube has the tip at the mid inferior aspect of the gastric body. Other findings: Nonspecific gas pattern. Single frontal view of the abdomen demonstrates tip of the enteric tube and distal side-port projecting over the stomach. Gas is identified within the nondistended large bowel. There is a paucity of small bowel gas seen. Partially visualized left pleural effusion. No other significant interval change. (39) Chest pain (40) Chest pain (41) Nausea (42) Obesity (43) Chronic ulcer of leg (44) Chronic ulcer of leg (45) Chronic ulcer of leg (46) ACS (acute coronary syndrome) (47) Acute chest pain (48) Encounter for dressing change or suture removal (49) Left leg cellulitis (50) Acute encephalopathy (51) Encounter for wound re-check (52) Intractable nausea and vomiting (53) Infection due to ESBL-producing Escherichia coli (54) Chronic venous stasis (55) Change of dressing (56) Change of dressing (57) Change of dressing (58) Change of dressing (59) Change of dressing (60) Change of dressing (61) Change of dressing (62) Change of dressing (63) ESBL urine (64) Lymphadema (65) Lymphedema (66) Lymphedema (67) Lymphedema (68) Lymphedema (69) Lymphedema (70) Lymphedema (71) Lymphedema (72) Lymphedema (73) Open wound of foot (74) Open wound of foot (75) cellulitis (76) chronic lymphedema (77) chronic lymphedema (78) chronic lymphedema (79) hypertension uncontrolled (80) hypertension uncontrolled (81) Intertrigo (82) Sciatica (83) Cellulitis (84) Schizophrenia (85) Chronic bronchitis (86) HTN (hypertension) (87) Venous stasis ulcers (88) Medication refill (89) Chest pain, atypical (90) BMI 45.0-49.9, adult (91) Lymphedema of both lower extremities (92) hypertension uncontrolled (93) hypertension uncontrolled (94) hypertension uncontrolled (95) tenia corpus (96) Deep tissue injury Assessment & Plan: Morbidly obese pt whom presented on admission with Pressure injuries, Edemae bilat lower extremities eschar to dorsal aspects of metatarsals. Pt is very demanding of staff and can be resistive to repositioning. DTPI noted to L Sacrum(L)5.5cm x (W)2.5cm. Base of Pressure Injury is Maroon and indurated with surrounding non-blanchable erythema DTPI R Sacrum(L)5.5cm x (W)2.3cm. Base of Pressure Injury is maroon with purpuric center that is fluctuant. Pt complained of tenderness when minimally palpated. Bilat lower extremities are edematous . Dry eschar noted to nail matrix and tip of L 1st metatarsal, Dorsal L 2nd metatarsal, R 2nd and R 4th metatarsals. Both heels are boggy with non-Blanchable erythema. blisters forming on Right lower extremity anterior tibia. not infected cellulitis / edema on b/l le stable cont abx Tx.Plan: Apply Moisture Barrier Paste to Sacrum R and L gluteal cheeks. Cover with Optifoam drsgs. Change every 3 days and prn. Apply Betadine to dry eschar metatarsals both feet Daily. Apply Cavilon Skin Barrier to both heels. Cover each heel with Optifoam drsgs. Change every 7days and prn. Reposition at least every 2hours or as tolerated. Off-load heels with pillow. right leg hematoma stable critically ill and edema on right leg has compromised dermis over the hematoma. will likely need debridement once improved (97) COVID-19 Assessment & Plan: ++ on vent weaning abx as per ID (98) Respiratory failure Assessment & Plan: not able to wean safely will plan for trach case discussed with medical team, pulm, icu. recommended to trach given medical condition. medically indicated and recommended. s/p trach / s/p trach more comfortable less agitated on vent weaning (99) Pneumonia Juan Manuel Buckner Jan 12, 2020 09:25
[2020-01-12] MEDS: Bacitracin Oint UD TOPIC SCH ×2 (09:44→20:04)
--- NOTE | 2020-01-12 09:45 | NUR ---
NURSE NOTES: Seen by Dr. Dumont. Renewed the Tylenol order. Cont. cooling measure. Noted ICU rooms and nurse station is hot.
[2020-01-12] MEDS: Acetaminophen 650mg/20.3ml GT PRN ×2 (10:00→20:14)
[2020-01-12] MEDS: Bactrim Susp 20ml GT SCH ×2 (10:00→20:01)
--- NOTE | 2020-01-12 10:47 | General Progress Note ---
Subjective ROS Limited/Unobtainable: Yes Allergies: Coded Allergies: ERYTHROMYCIN BASE (Verified Allergy, Severe, 12/12/19) HALOPERIDOL (Verified Allergy, Unknown, 12/12/19) VANCOMYCIN (Unverified Adverse Reaction, Intermediate, Shortness of Breath, 12/12/19) Objective Last 24 Hour Vital Signs Date Time Temp Pulse Resp B/P (MAP) Pulse Ox O2 Delivery O2 Flow Rate FiO2 01/12/20 10:32 112 24 40 01/12/20 10:31 100 01/12/20 10:00 125 23 156/80 (105) 100 01/12/20 09:00 166 23 137/75 (95) 94 01/12/20 08:56 167 133/91 01/12/20 08:00 Trach Collar 01/12/20 08:00 40 01/12/20 08:00 100.7 161 21 119/87 (98) 97 01/12/20 07:24 108 27 40 01/12/20 06:34 150 117/90 01/12/20 06:00 155 28 117/90 (99) 95 01/12/20 05:00 147 26 166/82 (110) 91 01/12/20 04:00 141 01/12/20 04:00 98.7 147 26 105/83 (90) 98 01/12/20 04:00 40 01/12/20 04:00 Trach Collar 01/12/20 03:00 135 21 123/102 (109) 99 01/12/20 02:45 122 27 40 01/12/20 02:00 114 26 131/75 (93) 99 01/12/20 01:00 114 26 152/70 (97) 96 01/12/20 00:51 129 168/105 01/12/20 00:00 Trach Collar 01/12/20 00:00 98.9 122 25 131/68 (89) 95 01/12/20 00:00 40 01/12/20 00:00 108 01/11/20 23:00 118 25 109/54 (72) 95 01/11/20 22:57 115 27 40 01/11/20 22:00 120 24 125/81 (96) 98 01/11/20 21:00 152 25 143/100 (114) 99 01/11/20 20:57 149 167/100 01/11/20 20:00 98.5 136 25 157/94 (115) 98 01/11/20 20:00 Trach Collar 01/11/20 20:00 126 01/11/20 20:00 40 01/11/20 19:11 119 26 40 01/11/20 19:00 129 25 140/125 (130) 01/11/20 18:00 123 26 127/66 (86) 78 01/11/20 17:29 135 139/112 01/11/20 17:00 134 24 135/112 (120) 86 01/11/20 16:00 99.0 01/11/20 16:00 Trach Collar 01/11/20 16:00 123 01/11/20 16:00 40 01/11/20 16:00 120 24 126/79 (95) 100 01/11/20 15:05 115 22 40 01/11/20 15:00 98 18 98/34 (55) 100 01/11/20 14:00 99 23 108/64 (79) 90 01/11/20 13:00 97 20 94/56 (69) 01/11/20 12:15 100 01/11/20 12:15 40 01/11/20 12:15 102 16 40 01/11/20 12:00 Trach Collar 01/11/20 12:00 99.2 102 20 92/45 (61) 100 01/11/20 12:00 105 01/11/20 12:00 40 01/11/20 11:00 106 20 110/99 (103) 100 01/11/20 10:50 40 01/11/20 10:46 108 24 40 Intake and Output 01/11/20 01/12/20 19:00 07:00 Intake Total 540 ml 540 ml Output Total 1150 ml 550 ml Balance -610 ml -10 ml Tube Feeding 540 ml 540 ml Output Urine Total 1150 ml 550 ml # Bowel Movements 2 Laboratory Tests 01/11/20 11:54: Arterial Blood pH 7.325L, Arterial Blood Partial Pressure CO2 54.3H, Arterial Blood Partial Pressure O2 98.9, Arterial Blood HCO3 27.7H, Arterial Blood Oxygen Saturation 96.5, Arterial Blood Base Excess 1.3, Eugene Test Positive 01/12/20 04:00: White Blood Count 2.3L, Red Blood Count 2.61L, Hemoglobin 7.7L, Hematocrit 23.9L , Mean Corpuscular Volume 92, Mean Corpuscular Hemoglobin 29.5, Mean Corpuscular Hemoglobin Concent 32.2, Red Cell Distribution Width 20.4H, Platelet Count 106L, Mean Platelet Volume 7.1, Neutrophils (%) (Auto) , Lymphocytes (%) (Auto) , Monocytes (%) (Auto) , Eosinophils (%) (Auto) , Basophils (%) (Auto) , Sodium Level 151H, Potassium Level 4.1, Chloride Level 115H, Carbon Dioxide Level 27, Anion Gap 9, Blood Urea Nitrogen 40H, Creatinine 1.7H, Estimat Glomerular Filtration Rate 30.0, Glucose Level 144H, Calcium Level 8.7, Ferritin 1042H, C- Reactive Protein, Quantitative 30.4H, Immunoglobulin G [Pending], Immunoglobulin A [Pending], Immunoglobulin M [Pending], Immunofixation Screen [Pending] 01/12/20 06:37: POC Whole Blood Glucose [Pending] Height (Feet): 5 Height (Inches): 6.00 Weight (Pounds): 343 General Appearance: lethargic, morbidly obese, other - trach vent Cardiovascular: regularly irregular Respiratory/Chest: rhonchi - bilaterally Abdomen: non tender Edema: moderate edema Neurologic: unresponsive Assessment/Plan Problem List: (1) Schizophrenia ICD Codes: F20.9 - Schizophrenia, unspecified SNOMED: 60194717 (2) GERD (gastroesophageal reflux disease) ICD Codes: K21.9 - Gastro-esophageal reflux disease without esophagitis SNOMED: 313720884 (3) Lymphadema (4) Smoker ICD Codes: F17.200 - Nicotine dependence, unspecified, uncomplicated SNOMED: 33310984 (5) Atrial fibrillation with rapid ventricular response ICD Codes: I48.91 - Unspecified atrial fibrillation SNOMED: 898793797462279 (6) CKD (chronic kidney disease) stage 3, GFR 30-59 ml/min ICD Codes: N18.3 - Chronic kidney disease, stage 3 (moderate) SNOMED: 924353119 (7) NATALIE (acute kidney injury) ICD Codes: N17.9 - Acute kidney failure, unspecified SNOMED: 6899888, 31753778 (8) COPD (chronic obstructive pulmonary disease) ICD Codes: J44.9 - Chronic obstructive pulmonary disease, unspecified SNOMED: 28183561 (9) UGI bleed ICD Codes: K92.2 - Gastrointestinal hemorrhage, unspecified SNOMED: 62074921 (10) Dysphagia ICD Codes: R13.10 - Dysphagia, unspecified SNOMED: 11185961, 439261304 (11) UTI (urinary tract infection) ICD Codes: N39.0 - Urinary tract infection, site not specified SNOMED: 12923620 (12) ESBL (extended spectrum beta-lactamase) producing bacteria infection ICD Codes: A49.9 - Bacterial infection, unspecified; Z16.12 - Extended spectrum beta lactamase (ESBL) resistance SNOMED: 027720482 (13) Dehydration ICD Codes: E86.0 - Dehydration SNOMED: 28323539 (14) CHF exacerbation ICD Codes: I50.9 - Heart failure, unspecified SNOMED: 960200819, 70364784898193 (15) Acute respiratory failure ICD Codes: J96.00 - Acute respiratory failure, unspecified whether with hypoxia or hypercapnia SNOMED: 07888958 (16) COVID-19 ICD Codes: U07.1 - COVID-19 SNOMED: 150656576 (17) Pneumonia ICD Codes: J18.9 - Pneumonia, unspecified organism SNOMED: 225121695 Qualifiers: (18) Hematoma of lower leg ICD Codes: S80.10XA - Contusion of unspecified lower leg, initial encounter SNOMED: 142835314 (19) CKD (chronic kidney disease) stage 3, GFR 30-59 ml/min ICD Codes: N18.3 - Chronic kidney disease, stage 3 (moderate) SNOMED: 200574106 Status: stable Assessment/Plan: resp distress, icu, trach, vent, natalie on ckd,,now stable, I/O, ,+hematoma RLE stop eliquis , lovenox now iv protonix, rx esbl and + vre uti,g+ cocci , remains high risk, d/w psych, ID, cardiology, chf and on lasix ,covid neg prior now +, grave prognosis, fungemia treated with micafungin likely will be unable to wean for a long time, agitated when tried to wean and had apnea 01/01, cpap trial 01/02 +25 had distress/tachycardia , ,all lab and orders reviewed , no active bleeding , low Hb to transfuse 01/08 preop, done, decrease lasix for chf , reculture, d/w dr curran needs trach, done,Needs gastrostomy unable to sign, done Dr Curran thinks that she might be able to wean gradually after trach placed, febrile again and infiltrates, trach scheduled 01/08, done, pancytopenia stable may be from sepsis or meds, posssible primarry BM disease, to observe , hypernatremia and free water gt, reduced lasix icu time 35 min Benjamin Dumont MD Jan 12, 2020 10:47
--- NOTE | 2020-01-12 11:00 | NUR ---
NURSE NOTES: Temperature went to 99F. Noted room temp. is hot. Will notify Outreach Clinician dept.
--- NOTE | 2020-01-12 12:00 | NUR ---
NURSE NOTES: Turned and repositioned with 4 nurses. Remain stable.
[2020-01-12] MEDS ORDERED: Sterile Water Irrig 1000ml IRRIG ONE (13:04)
[2020-01-12] MEDS ORDERED: NS 275ml ONE (13:04)
--- NOTE | 2020-01-12 14:00 | NUR ---
NURSE NOTES: Complete bed bath given, turned and reposition. Pt. is tolerating. Pt is comfortable, not in distress. Will continue to monitor pt. Will continue with plan of care.
--- NOTE | 2020-01-12 17:23 | NUR ---
NURSE NOTES: Pt. remain stable. Afebrile. Versed given due to agitation.
--- NOTE | 2020-01-12 18:17 | Infectious Diseases Prog Note ---
Assessment/Plan Assessment/Plan ASSESSMENT AND PLAN: 1. MDR acinetobacter pna - S-minocycline, I-colistin, polymyxin hx esbl e.coli uti/pyelonephritis, sepsis, leukocytosis, fevers mrsa and vre colonization, ANTALIE, respiratory distress/failure Fungemia - + yeast in blood - ID still pending hx mrsa pna/acinetobacter pna hx VRE uti covid-19 infection right leg swelling and redness noted, ? cellulitis, ? infected hematoma, ? wound infection - minocycline - day # 4, bactim - day # 2 for acinetobacter pna - cefepime and flagyl added to cover possible wound/hematoma infection - s/p micafungin - surveillance cultures - bc - neg, uc-neg, sc-acinetobacter - s/p remdesivir, on dexamethasone - monitor labs and chest x-ray - ? debridement right leg per surgery when patient stable - d/w pharmacy 2. Chronic kidney failure, acute renal failure. 3. COPD. 4. Pulmonary followup. 5. Renal followup. 6. History of falls. 7. Atrial fibrillation. Cardiology followup. 8. Obesity. 9. Gait disorder. 10. Schizophrenia. 11. Homeless. 12. Allergic to erythromycin, haloperidol, and vancomycin. 13. Social history is negative. 14. Family history is noncontributory. 15. MAR is noted. 16. Case discussed with RN. 17. Continue treatment per Dr. Dumont and consultants. Subjective Constitutional: Reports: fever - lgt , fatigue, other - trach/vent, responsive HEENT: Reports: congestion Respiratory: Reports: shortness of breath Cardiovascular: Reports: other - no pressors Gastrointestinal/Abdominal: Denies: nausea, vomiting, diarrhea Genitourinary: Reports: other - + trivedi Neurologic: Reports: headache, other - responsvie, on vent Psychiatric: Reports: other - NA Skin: Denies: rash Hematologic: Denies: bleeding Musculoskeletal: Reports: other - NA Allergies: Coded Allergies: ERYTHROMYCIN BASE (Verified Allergy, Severe, 12/12/19) HALOPERIDOL (Verified Allergy, Unknown, 12/12/19) VANCOMYCIN (Unverified Adverse Reaction, Intermediate, Shortness of Breath, 12/12/19) Objective Last 24 Hour Vital Signs Date Time Temp Pulse Resp B/P (MAP) Pulse Ox O2 Delivery O2 Flow Rate FiO2 01/12/20 17:26 130 114/67 01/12/20 17:00 122 21 114/67 (83) 100 01/12/20 16:00 40 01/12/20 16:00 116 01/12/20 16:00 Trach Collar 01/12/20 16:00 120 20 138/73 (94) 100 01/12/20 15:00 99.0 108 19 109/62 (78) 100 01/12/20 14:52 116 19 40 01/12/20 14:00 111 18 130/86 (101) 100 01/12/20 13:00 109 137/123 (128) 100 01/12/20 12:00 Trach Collar 01/12/20 12:00 40 01/12/20 12:00 99.7 118 20 129/86 (100) 100 01/12/20 12:00 121 01/12/20 11:43 115 133/85 01/12/20 11:30 105 18 40 01/12/20 11:00 115 23 133/85 (101) 100 01/12/20 10:32 112 24 40 01/12/20 10:31 100 01/12/20 10:30 99.5 01/12/20 10:00 125 23 156/80 (105) 100 01/12/20 09:00 166 23 137/75 (95) 94 01/12/20 08:56 167 133/91 01/12/20 08:00 Trach Collar 01/12/20 08:00 40 01/12/20 08:00 171 01/12/20 08:00 100.7 161 21 119/87 (98) 97 01/12/20 07:24 108 27 40 01/12/20 06:34 150 117/90 01/12/20 06:00 155 28 117/90 (99) 95 01/12/20 05:00 147 26 166/82 (110) 91 01/12/20 04:00 141 01/12/20 04:00 98.7 147 26 105/83 (90) 98 01/12/20 04:00 40 01/12/20 04:00 Trach Collar 01/12/20 03:00 135 21 123/102 (109) 99 01/12/20 02:45 122 27 40 01/12/20 02:00 114 26 131/75 (93) 99 01/12/20 01:00 114 26 152/70 (97) 96 01/12/20 00:51 129 168/105 01/12/20 00:00 Trach Collar 01/12/20 00:00 98.9 122 25 131/68 (89) 95 01/12/20 00:00 40 01/12/20 00:00 108 01/11/20 23:00 118 25 109/54 (72) 95 01/11/20 22:57 115 27 40 01/11/20 22:00 120 24 125/81 (96) 98 01/11/20 21:00 152 25 143/100 (114) 99 01/11/20 20:57 149 167/100 01/11/20 20:00 98.5 136 25 157/94 (115) 98 01/11/20 20:00 Trach Collar 01/11/20 20:00 126 01/11/20 20:00 40 01/11/20 19:11 119 26 40 01/11/20 19:00 129 25 140/125 (130) Height (Feet): 5 Height (Inches): 6.00 Weight (Pounds): 343 General Appearance: other - s/p trach. 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 There is bilateral interstitial and airspace disease is again demonstrated, probably unchanged allowing for differences in degree of inspiration. Impression: Unchanged, over one day, findings as above. Chest x-ray - 12/21/19 - Procedure: XRAY Chest 1v Indication: Shortness of breath Technique: One view of the chest Comparison: 12/19/2019 Findings: The heart is enlarged. Bilateral extensive infiltrates are again demonstrated, stable to slightly worse allowing for differences in exposure technique. There is suggestion of increasing pleural fluid on the left. Nasogastric tube is again demonstrated. Impression: Stable to worsened bilateral extensive infiltrates, since exam of 2 days prior Increasing left pleural effusion Chest x-ray - 12/23/19 - IMPRESSION: 1. No significant interval change from the prior chest x-ray. 2. Persistent moderate left pleural effusion and mild right pleural effusion. 3. Pulmonary vascular congestion. 4. Persistent opacity in the left lung base, which may represent atelectasis versus pneumonia. Chest x-ray - 12/25/19 - Procedure: XRAY Chest 1v Procedure: XRAY Chest 1v Reason for study: Reason For Exam: SOB Comparison films: 12/24/2019. FINDINGS: The tracheal tube and NG tube remain in place. Vascular prominence and bilateral hazy alveolar densities are unchanged. Cardiomegaly and small effusions also unchanged. The bony thorax appear unremarkable. IMPRESSION: NO SIGNIFICANT CHANGE COMPARED TO PREVIOUS EXAM. 12/26/19 - Procedure: XRAY Chest 1v Procedure: XRAY Chest 1v Reason for study: Reason For Exam: SOB Comparison films: 12/25/2019. FINDINGS: Endotracheal tube and NG tube remain in place. Hazy bilateral alveolar densities are essentially unchanged given the difference in technique. Cardiomegaly and right effusion again noted. The bony thorax appear unremarkable. IMPRESSION: NO SIGNIFICANT CHANGE COMPARED TO PREVIOUS EXAM. Chest x-ray - 12/28/19 - Procedure: XRAY Chest 1v Indication: Reason For Exam: SOB Technique: Single AP view of the chest. Comparison: Chest radiograph dated 12/27/2019 Findings: Exam is again noted to be diagnostically limited due to underpenetration, patient rotation, and exclusion of part of the left hemithorax from the [id number]. Within these limitations: No significant change in appearance of visualized cardiomediastinal silhouette. Unchanged layering right pleural effusion with associated basilar airspace opacities. Likely retrocardiac consolidation, unchanged. No apical pneumothoraces. Unchanged enteric and endotracheal tubes. Unchanged left PICC. Chest x-ray - 12/30/19 - FINDINGS: Distal tip of ET tube is above devika. Distal tip of the enteric tube is in stomach. Stable left arm PICC line with distal tip likely in the left subclavian vein. Cardiac silhouette is within normal limits allowing for portable and rotated technique. Low lung volumes with elevated left hemidiaphragm. Again noted is a moderate right effusion with patchy infiltrates in the right mid to lower lung. Probable retrocardiac infiltrates. IMPRESSION: Little interval change in moderate right effusion and pneumonia/aspiration. Suspected retrocardiac infiltrate. The distal tip of the left arm PICC line is not well seen past the level of the left mid subclavian vein. [place] location is in the cavoatrial junction. Recommend advancement. <MYCVCSECTION> Chest x-ray - 01/04/20 - Procedure: XRAY Chest 1v Indication: Dyspnea Technique: One view of the chest Comparison: 01/02/2020 Findings: Bilateral interstitial and airspace congestion, right pleural effusion, cardiomegaly persists, unchanged. Tube and line positions are unchanged Impression: Unchanged, over one day, findings as above. Chest x-ray - 01/06/20 - IMPRESSION: 1. Endotracheal tube terminates in the region of the lower thoracic trachea, approximately 2.6 cm above the devika. Enteric tube is difficult to visualize distally. 2. Similar opacities predominantly in the mid and lower lungs which may represent combination of pleural effusions and atelectasis versus pneumonia versus edema. Chest x-ray - 01/07/20 - Procedure: XRAY Chest 1v Indication: Shortness of breath Technique: One view of the chest Comparison: 01/06/2020 Findings: Stable satisfactory positions of endotracheal and orogastric tubes. Mild interstitial congestion and hazy ankle opacities are again demonstrated bilaterally. There appears to be a small amount of pleural fluid bilaterally, probably unchanged. Impression: Unchanged, over one day, findings as above. Chest x-ray - 01/10/20 - Procedure: XRAY Chest 1v Indication: There is a breath Technique: One view of the chest Comparison: 01/08/2020 Findings: Interim conversion of endotracheal tube to a tracheostomy, appearing well positioned. Orogastric tube remains. Bilateral interstitial and airspace infiltrates versus edema persists, unchanged. Small bilateral pleural effusions persist, unchanged. Impression: Interim tracheostomy placement. No radiographically evident complication Stable bilateral pleural and parenchymal disease Microbiology Date/Time Source Procedure Growth Status 01/11/20 04:20 Stool Clostridium difficile Toxin Assay - Final Complete Laboratory Tests Test 01/12/20 04:00 01/12/20 06:37 10/3/20 11:46 White Blood Count 2.3 K/UL (4.8-10.8) L Red Blood Count 2.61 M/UL (4.20-5.40) L Hemoglobin 7.7 G/DL (12.0-16.0) L Hematocrit 23.9 % (37.0-47.0) L Mean Corpuscular Volume 92 FL (80-99) Mean Corpuscular Hemoglobin 29.5 PG (27.0-31.0) Mean Corpuscular Hemoglobin Concent 32.2 G/DL (32.0-36.0) Red Cell Distribution Width 20.4 % (11.6-14.8) H Platelet Count 106 K/UL (150-450) L Mean Platelet Volume 7.1 FL (6.5-10.1) Neutrophils (%) (Auto) % (45.0-75.0) Lymphocytes (%) (Auto) % (20.0-45.0) Monocytes (%) (Auto) % (1.0-10.0) Eosinophils (%) (Auto) % (0.0-3.0) Basophils (%) (Auto) % (0.0-2.0) Sodium Level 151 MMOL/L (136-145) H Potassium Level 4.1 MMOL/L (3.5-5.1) Chloride Level 115 MMOL/L (98-107) H Carbon Dioxide Level 27 MMOL/L (21-32) Anion Gap 9 mmol/L (5-15) Blood Urea Nitrogen 40 mg/dL (7-18) H Creatinine 1.7 MG/DL (0.55-1.30) H Estimat Glomerular Filtration Rate 30.0 mL/min (>60) Glucose Level 144 MG/DL (74-106) H Calcium Level 8.7 MG/DL (8.5-10.1) Ferritin 1042 NG/ML (8-388) H C-Reactive Protein, Quantitative 30.4 mg/dL (0.00-0.90) H Immunoglobulin G Pending Immunoglobulin A Pending Immunoglobulin M Pending Immunofixation Screen Pending POC Whole Blood Glucose Pending 135 MG/DL (74-106) H Current Medications Medications (Trade) Dose Ordered Sig/Shiraz Route PRN Reason Start Time Stop Time Status Last Admin Dose Admin Acetaminophen (Tylenol) 650 mg Q4H PRN GT Temp >100.5 01/12/20 10:00 02/11/20 09:59 01/12/20 10:00 Acetaminophen (Tylenol) 650 mg Q4H PRN GT Mild Pain (Pain Scale 1-3) 01/12/20 10:00 02/11/20 09:59 Acetazolamide (Diamox) 500 mg TWICE A DAY NG 01/02/20 18:00 02/01/20 17:59 01/12/20 17:26 Albuterol Sulfate (Proventil MDI) 2 puff Q4H PRN INH Shortness of Breath 12/24/19 10:30 03/23/20 10:29 01/12/20 09:44 Bacitracin (Bacitracin) 2 applic EVERY 12 HOURS TOPIC 01/06/20 21:00 03/12/20 08:59 01/12/20 09:44 Chlorhexidine Gluconate (Jessie-Hex 2%) 1 applic DAILY@1999 TOPIC 12/24/19 20:00 03/23/20 19:59 01/11/20 20:58 Chlorpromazine (Thorazine) 50 mg Q6H PRN IM agitation 12/30/19 02:30 01/29/20 02:29 01/12/20 11:43 Clotrimazole (Lotrimin) 1 applic EVERY 12 HOURS TOPIC 01/05/20 09:00 03/12/20 08:59 01/12/20 09:27 Dextrose (Dextrose 50%) 25 ml Q30M PRN IV Hypoglycemia 12/23/19 10:45 03/22/20 10:44 Dextrose (Dextrose 50%) 50 ml Q30M PRN IV Hypoglycemia 12/23/19 10:45 03/22/20 10:44 Diltiazem HCl (Cardizem Tab) 60 mg Q6HR NG 01/11/20 00:00 02/10/20 00:00 01/12/20 17:26 Docusate Sodium (Colace) 100 mg BID NG 12/25/19 09:00 01/24/20 08:59 01/12/20 17:26 Furosemide (Lasix) 100 mg BID IV 01/12/20 18:00 02/11/20 17:59 01/12/20 17:24 Insulin Aspart (NovoLOG) EVERY 6 HOURS SUBQ 01/05/20 06:00 03/22/20 11:29 01/12/20 06:46 Magnesium Hydroxide (Mom) 30 ml HSPRN PRN NG Constipation 12/22/19 15:15 01/21/20 15:14 01/02/20 22:20 Metoclopramide HCl (Reglan) 5 mg Q6H IVP 01/05/20 09:15 02/04/20 09:14 01/12/20 15:26 Metoprolol Tartrate (Lopressor) 50 mg Q12HR NG 12/22/19 21:00 03/18/20 20:59 01/12/20 08:56 Midazolam HCl (Versed 2mg/2ml vial) 2 mg Q1H PRN IVP Agitation 01/10/20 17:15 01/17/20 17:14 01/12/20 16:35 Minocycline HCl (Minocin) 100 mg Q12HR ORAL 01/10/20 21:00 01/17/20 20:59 01/12/20 08:56 Pantoprazole (Protonix) 40 mg EVERY 12 HOURS IVP 01/01/20 21:00 01/31/20 20:59 01/12/20 08:57 Polyethylene Glycol (Miralax) 17 gm BEDTIME NG 12/22/19 21:00 01/18/20 20:59 01/11/20 20:58 Potassium Chloride (K-Dur) 40 meq EVERY 12 HOURS NG 01/05/20 11:45 04/04/20 11:14 01/12/20 08:55 Quetiapine Fumarate (SEROqueL) 150 mg EVERY 8 HOURS ORAL 01/11/20 22:00 02/25/20 21:59 01/12/20 13:53 Trimethoprim/ Sulfamethoxazole (Bactrim-DS) 40 ml EVERY 12 HOURS GT 01/11/20 18:00 01/18/20 17:59 01/12/20 10:00 Aleisha Coronel MD Jan 12, 2020 18:17
--- NOTE | 2020-01-12 18:59 | Cardiology Progress Note ---
Subjective DATE OF SERVICE: Jan 12, 2020 Doing poorly - remains in ICU in critical condition with guarded prognosis. Remains on vent support - failed weaning trials; now s/p trach BP range remaining low normal range; she had hypotensive episodes yesterday. Remains COVID19 positive. Monitor: AFIb with rapid rates. Yesterday add'l doses of IV diltiazem were given for rapid rates. Had coffee ground material in NGTube and hematoma on right leg; anti-coagulation discont'd Venous Duplex: negative for DVT Renal fxn and free water deficit worsening CXR (01/10/20) unchg'd bilateral infiltrates and eff'n - s/p trach Objective Last 24 Hour Vital Signs Date Time Temp Pulse Resp B/P (MAP) Pulse Ox O2 Delivery O2 Flow Rate FiO2 01/12/20 18:00 140 25 143/102 (116) 76 01/12/20 17:26 130 114/67 01/12/20 17:00 122 21 114/67 (83) 100 01/12/20 16:00 40 01/12/20 16:00 116 01/12/20 16:00 Trach Collar 01/12/20 16:00 120 20 138/73 (94) 100 01/12/20 15:00 99.0 108 19 109/62 (78) 100 01/12/20 14:52 116 19 40 01/12/20 14:00 111 18 130/86 (101) 100 01/12/20 13:00 109 137/123 (128) 100 01/12/20 12:00 Trach Collar 01/12/20 12:00 40 01/12/20 12:00 99.7 118 20 129/86 (100) 100 01/12/20 12:00 121 01/12/20 11:43 115 133/85 01/12/20 11:30 105 18 40 01/12/20 11:00 115 23 133/85 (101) 100 01/12/20 10:32 112 24 40 01/12/20 10:31 100 01/12/20 10:30 99.5 01/12/20 10:00 125 23 156/80 (105) 100 01/12/20 09:00 166 23 137/75 (95) 94 01/12/20 08:56 167 133/91 01/12/20 08:00 Trach Collar 01/12/20 08:00 40 01/12/20 08:00 171 01/12/20 08:00 100.7 161 21 119/87 (98) 97 01/12/20 07:24 108 27 40 01/12/20 06:34 150 117/90 01/12/20 06:00 155 28 117/90 (99) 95 01/12/20 05:00 147 26 166/82 (110) 91 01/12/20 04:00 141 01/12/20 04:00 98.7 147 26 105/83 (90) 98 01/12/20 04:00 40 01/12/20 04:00 Trach Collar 01/12/20 03:00 135 21 123/102 (109) 99 01/12/20 02:45 122 27 40 01/12/20 02:00 114 26 131/75 (93) 99 01/12/20 01:00 114 26 152/70 (97) 96 01/12/20 00:51 129 168/105 01/12/20 00:00 Trach Collar 01/12/20 00:00 98.9 122 25 131/68 (89) 95 01/12/20 00:00 40 01/12/20 00:00 108 01/11/20 23:00 118 25 109/54 (72) 95 01/11/20 22:57 115 27 40 01/11/20 22:00 120 24 125/81 (96) 98 01/11/20 21:00 152 25 143/100 (114) 99 01/11/20 20:57 149 167/100 01/11/20 20:00 98.5 136 25 157/94 (115) 98 01/11/20 20:00 Trach Collar 01/11/20 20:00 126 01/11/20 20:00 40 01/11/20 19:11 119 26 40 01/11/20 19:00 129 25 140/125 (130) ROS: unchanged from 12/12/19 HEENT: Orally intubated, Mechanically Ventilated, Thin secretions ET Tube, other - NGtube RHYTHM: NSR, ST LUNGS: diminished breath sounds, right-sided rhonchi CARDIAC: normal S1 and S2, irregularly irregular ABDOMEN: other - obese EXTREMITIES: moderate edema - mostly non pitting, other - hematoma right leg Laboratory Tests Test 10/3/20 04:00 01/12/20 06:37 01/12/20 11:46 White Blood Count 2.3 K/UL (4.8-10.8) L Red Blood Count 2.61 M/UL (4.20-5.40) L Hemoglobin 7.7 G/DL (12.0-16.0) L Hematocrit 23.9 % (37.0-47.0) L Mean Corpuscular Volume 92 FL (80-99) Mean Corpuscular Hemoglobin 29.5 PG (27.0-31.0) Mean Corpuscular Hemoglobin Concent 32.2 G/DL (32.0-36.0) Red Cell Distribution Width 20.4 % (11.6-14.8) H Platelet Count 106 K/UL (150-450) L Mean Platelet Volume 7.1 FL (6.5-10.1) Neutrophils (%) (Auto) % (45.0-75.0) Lymphocytes (%) (Auto) % (20.0-45.0) Monocytes (%) (Auto) % (1.0-10.0) Eosinophils (%) (Auto) % (0.0-3.0) Basophils (%) (Auto) % (0.0-2.0) Sodium Level 151 MMOL/L (136-145) H Potassium Level 4.1 MMOL/L (3.5-5.1) Chloride Level 115 MMOL/L (98-107) H Carbon Dioxide Level 27 MMOL/L (21-32) Anion Gap 9 mmol/L (5-15) Blood Urea Nitrogen 40 mg/dL (7-18) H Creatinine 1.7 MG/DL (0.55-1.30) H Estimat Glomerular Filtration Rate 30.0 mL/min (>60) Glucose Level 144 MG/DL (74-106) H Calcium Level 8.7 MG/DL (8.5-10.1) Ferritin 1042 NG/ML (8-388) H C-Reactive Protein, Quantitative 30.4 mg/dL (0.00-0.90) H Immunoglobulin G Pending Immunoglobulin A Pending Immunoglobulin M Pending Immunofixation Screen Pending POC Whole Blood Glucose Pending 135 MG/DL (74-106) H Microbiology Date/Time Source Procedure Growth Status 01/11/20 04:20 Stool Clostridium difficile Toxin Assay - Final Complete Assessment/Plan Assessment/Plan CRITICAL AND GUARDED Acute respiratory failure - s/p trach Acute on chronic respiratory acidosis AFiB with labile heart rates CHF, ac/chr diastolic BLE edema Sepsis with shock obesity COPD with bronchospasm Acute renal failure - worsening Pleural effusion GI bleeding Anemia - multifactorial, now worse Covid 19 PNA Hypokalemia Dehydration/hypernatremia worsened Hypertension/HHD with labile BP - now stable range. Vent support PRBC transfusion for hb below 7gm/dl Monitor acid/base parameters. Antimicrobials Titrate rate-control meds -advance diltiazem and metoprolol with hold parameters for low BP. DC apixaban - hold anticoagulation due to GI bleeding; resume with GI clearance. 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 Potassium and free water suppl in place. Agree with DNR Jerome Meek MD Jan 12, 2020 18:59
--- NOTE | 2020-01-12 19:24 | NUR ---
NURSE HAND-OFF REPORT: SANDY COHEN Latest Vital Signs: Temperature 99.0 , Pulse 140 , B/P 143 /102 , Respiratory Rate 25 , O2 SAT 76 , Trach Collar, O2 Flow Rate . Vital Sign Comment: WNL EKG Rhythm: Atrial Fibrillation Rhythm change?: N Notified?: N -MD Gaviota UNDERWOOD Response: Latest Abreu Fall Score: 75 Fall Risk: High Risk Safety Measures: Call light Within Reach, Bed Alarm Zone 1, Side Rails Side Rails x3, Bed position Low and Locked. Fall Precautions: Yellow Socks Yellow Gown Door Sign Patient Fall Education Report given to SANDY COHEN.
--- NOTE | 2020-01-12 19:25 | NUR ---
NURSE NOTES: Patient received from Laci RN. patient restless and agitated with Shiley 8 trach on ventilator AC 18 TV 600 FiO2 40% PEEP 5. BP 116/85 HR 130 Afib on monitor, temp 102.1F axillary, prn Tylenol administered and ice packs applied. Left upper arm PICC TKO with ecchymosis noted. gtube running vital AF @ 45ml/hr. sacral bilateral heels DTPI, right knee open hematoma wrapped in krilex and left knee ecchymosis noted. Lockett catheter draining yellow urine. patient on p200, repositioned and oral care provided.
[2020-01-12] MEDS: Dyna-Hex 2% Top Sol 2oz TOPIC SCH (19:55)
[2020-01-12] MEDS: Miralax 17gm pkt NG SCH (20:02)
--- NOTE | 2020-01-12 22:00 | NUR ---
NURSE NOTES: patient calm after prn versed administered with Shawna 8 trach on ventilator AC 18 TV 600 FiO2 40% PEEP 5. BP 123/72 HR 110 Afib on monitor. Left upper arm PICC TKO with ecchymosis noted. gtube running vital AF @ 45ml/hr. ice packs on. Lockett catheter draining yellow urine. patient on p200, repositioned and oral care provided.
[2020-01-12] MEDS: metroNIDAZOLE 500mg tab ORAL SCH (22:24)
[2020-01-13] VITALS (25 sets, daily range): BP systolic 111–155; BP diastolic 55–99
--- NOTE | 2020-01-13 | NUR ---
NURSE NOTES: patient calm with Shiley 8 trach on ventilator AC 18 TV 600 FiO2 40% PEEP 5. BP 116/65 HR 106 Afib on monitor temp 101.5F axillary. Left upper arm PICC TKO with ecchymosis noted. gtube running vital AF @ 45ml/hr with 110 residual noted, feeding held. ice packs on. right knee hematoma dressing changed. Lockett catheter draining yellow urine. patient on p200, repositioned and oral care provided.
[2020-01-13] MEDS: Acetaminophen 650mg/20.3ml GT PRN ×4 (01:04→20:22)
[2020-01-13] MEDS: Midazolam 2mg/2ml Inj IVP PRN ×4 (01:53→20:20)
--- NOTE | 2020-01-13 02:00 | NUR ---
NURSE NOTES: patient restless and agitated with Shiley 8 trach on ventilator AC 18 TV 600 FiO2 40% PEEP 5. BP 131/73 HR 122 Afib on monitor. Left upper arm PICC TKO with ecchymosis noted. gtube clamped and patent. ice packs on. Lockett catheter draining yellow urine. patient given CHG bath, repositioned and oral care provided.
[2020-01-13] MEDS: Metoclopramide 10mg/2ml Inj IVP SCH ×4 (02:54→20:20)
--- NOTE | 2020-01-13 03:55 | NUR ---
NURSE NOTES: Paged Dr. Arenas to report patient HR uncontrolled AFib 150-160. message left. awaiting call back.
--- NOTE | 2020-01-13 04:00 | NUR ---
NURSE NOTES: patient restless and agitated after prn versed administered. patient with Shiley 8 trach on ventilator AC 18 TV 600 FiO2 40% PEEP 5. BP 131/73 HR 149 Afib on monitor, Dr. Arenas returned page, IV Cardizem pushed 1 time. temp 100.5F axillary. Left upper arm PICC TKO with ecchymosis noted. resumed gtube running vital AF @ 20ml/hr. ice packs on. right knee hematoma dressing changed. Lockett catheter draining yellow urine. patient repositioned and oral care provided.
[2020-01-13] MEDS ORDERED: dilTIAZem HCl 25mg/5ml Inj IVP SCH ×2 (04:15→17:15)
[2020-01-13] MEDS: metroNIDAZOLE 500mg tab ORAL SCH ×3 (05:16→21:38)
[2020-01-13] MEDS: dilTIAZem HCl 60mg tab NG SCH ×2 (05:17→12:32)
[2020-01-13] MEDS: NovoLOG Insulin Flexpen SUBQ SCH ×3 (06:00→17:26)
--- NOTE | 2020-01-13 07:30 | NUR ---
NURSE NOTES: Received report from NOEL Palumbo. The patient is resting on the bed but restless, combative, aggressive, agitated, and confused at this time. The patient is opening eyes with verbal and tactile stimuli and communication made by facial expression and body movement. A fib w/ RVR w/ HR 130-150s even with Cardizem IVP around 0400 by NOEL Palumbo, and Dr. Meek was notified. The patient is trach'ed and on ventilator on following setting and oxygen saturation is 100%: Shiley 8, AC 18, TV 600, FiO2 40%, and PEEP 5. The patient has GT that is intact and patent and running Vital AF 20mL/hr due to high residual per NOEL Palumbo. The patient has Lockett that is intact and patent and draining by gravity. Skin issue noted and dressing intact. The patient has MARBELLA double lumen PICC line that is intact and patent and is kept in TKO. Per NOEL Palumbo, the patient has fever throughout the shift. The patient's bed in the lowest position, call light in reach, and fall and aspiration precaution reinforced. IV site intact and patent. Will follow up the lab and order. Will closely monitor the patient. Will continue plan of care. Addendum: 01/13/20 at 1526 by Samir Collins RN Bilateral soft wrist restraints on per order and skin and circulation intact.
--- NOTE | 2020-01-13 07:31 | NUR ---
NURSE HAND-OFF REPORT: Latest Vital Signs: Temperature 100.5 , Pulse 119 , B/P 111 /67 , Respiratory Rate 19 , O2 SAT 100 , Trach Collar, O2 Flow Rate . Vital Sign Comment: Afib with RVR after ivp cardizem one time, Dr. Arenas aware. EKG Rhythm: Atrial Fibrillation Rhythm change?: N Notified?: N -MD Gaviota UNDERWOOD Response: Latest Abreu Fall Score: 75 Fall Risk: High Risk Safety Measures: Call light Within Reach, Bed Alarm Zone 1, Side Rails Side Rails x3, Bed position Low and Locked. Fall Precautions: Yellow Socks Yellow Gown Door Sign Patient Fall Education Report given to NOEL Daniels.
--- NOTE | 2020-01-13 07:40 | NUR ---
NURSE NOTES: Paged Dr. Meek regarding the patient's condition of Afib w/ RVR with HR of 130-150s even with Cardizem IVP on previous shift. Dr. Ribeiro answered. Per Dr. Ribeiro, he will relay message to Dr. Meek for further order. Awaiting for further order. Will administer scheduled Metoprolol per order as soon as possible. Will continue plan of care.
--- NOTE | 2020-01-13 07:50 | NUR ---
NURSE NOTES: CHRISTIANO Escobar at the bedside assessed the patient. Notified abnormal lab, Afib w/ RVR, and fever. No new order at this time. Will closely monitor the patient. Will continue plan of care.
--- NOTE | 2020-01-13 08:00 | NUR ---
NURSE NOTES: Morning vital signs taken. Morning nursing assessment done. Will closely monitor the patient. Will continue plan of care.
[2020-01-13] MEDS: Bactrim Susp 20ml GT SCH (08:24)
[2020-01-13] MEDS: Pantoprazole Inj IVP SCH ×2 (08:25→20:20)
[2020-01-13] MEDS: Docusate 100mg/10ml Liq NG SCH ×2 (08:26→17:19)
[2020-01-13] MEDS: Metoprolol Tartrate 50mg tab NG SCH ×3 (08:28→23:48)
[2020-01-13] MEDS: Minocycline HCl 50mg cap ORAL SCH ×2 (08:28→20:21)
[2020-01-13] MEDS: Bacitracin Oint UD TOPIC SCH ×2 (08:29→21:01)
--- NOTE | 2020-01-13 08:52 | Diagnostic Imaging Report ---
EXAM: XR Chest, 1 View CLINICAL HISTORY: SOB TECHNIQUE: Frontal view of the chest. COMPARISON: Chest radiograph January 10, 2020. FINDINGS/IMPRESSION: Midline tracheostomy tube. Left upper extremity PICC line terminates in the left brachycephalic vein, unchanged. Mild-moderate vascular congestion, which is mildly increased when compared to January 10, 2020. Moderate left pleural effusion, which has mildly increased when compared to January 10, 2020. No pneumothorax. Cardiomegaly. Calcified aorta.
--- NOTE | 2020-01-13 09:11 | Pulmonolgy Critical Care Note ---
Luz Bowen [employer] COVERER 01/13/20 0911: Critical Care - Asmt/Plan Assessment/Plan: ASSESSMENT acute hypoxemic hypercapnic resp failure, requiring intubation 12/22 s/p trach 01/08 COVID 19 PNA sepsis fungemia UTI with E coli ESBL UTI VRE possible aspiration PNA - s/p treatment Moderate R pleural effusion COPD Atrial fibrillation with RVR CHF Acute renal failure on CKD Severe anemia dysphagia, s/p PEG 01/08 Thrombocytopenia Status post ground fall Tobacco dependency Morbid obesity probable GARY R knee edema and hematoma, possible cellulitis PLAN OF CARE s/p trach, cont PS trials as tolerated Monitor ABG Monitor effusion , CXR this am with mild increase in effusion compare to prior CXR, will fup with imaging s/p steroids IV ( started 12/23) continue for total of 10 days till 01/02 s/p Remdesivir (started 12/24 ), dc 12/30 initial diagnoses with COVID 19 at [facility] 11/29, was not hypoxic and not intubated, was not treated with Remdesivivr , only received empiric abx for PNA DVT prophylaxis with Lovenox on diuresis with Lasix, decreased by Dr. Dumont monitor volumes closely creat remains stable consider d/c diamox afib rate control GI prophylaxis with PPI monitor HH with goal to keep Hgb >7 Resume anticoagulation when cleared by GI s/p PEG 01/09, asp precautions, SCX 01/07 + ACB MDR BCX 01/07 NGTD UCX 01/07 NGT stool C dif 01/10 NGT s/p Polymyxin , Zyvox and Zosyn -as per ID recs, now on Minocycline 01/09- for possible cellulitis R leg previously evaluated by bioethics -> DNR/DNI status appropriate case discussed and evaluated by supervising physician Critical Care - Objective Last 24 Hour Vital Signs Date Time Temp Pulse Resp B/P (MAP) Pulse Ox O2 Delivery O2 Flow Rate FiO2 01/13/20 08:28 155 158/94 01/13/20 07:05 146 25 40 01/13/20 07:00 139 23 135/75 (95) 97 01/13/20 06:00 117 19 124/68 (86) 100 01/13/20 05:17 119 111/67 01/13/20 05:00 113 19 111/67 (82) 100 01/13/20 04:12 136 151/80 01/13/20 04:00 137 01/13/20 04:00 Trach Collar 01/13/20 04:00 100.5 149 23 151/80 (103) 96 01/13/20 04:00 40 01/13/20 03:20 124 18 40 01/13/20 03:00 139 21 118/73 (88) 95 01/13/20 02:00 122 20 131/73 (92) 100 01/13/20 01:34 101.0 01/13/20 01:00 108 19 111/62 (78) 100 01/13/20 00:00 101.5 106 19 116/65 (82) 100 01/13/20 00:00 Trach Collar 01/13/20 00:00 110 01/12/20 23:19 104 18 40 01/12/20 23:14 113 135/64 01/12/20 23:00 110 23 135/64 (87) 100 01/12/20 22:00 110 19 123/72 (89) 100 01/12/20 21:00 113 21 129/72 (91) 100 01/12/20 20:44 102.0 01/12/20 20:02 122 116/79 01/12/20 20:00 102.1 134 20 116/79 (91) 100 01/12/20 20:00 Trach Collar 01/12/20 20:00 40 01/12/20 20:00 135 01/12/20 19:25 131 26 40 01/12/20 19:00 130 19 116/85 (95) 100 01/12/20 18:00 140 25 143/102 (116) 76 01/12/20 17:26 130 114/67 01/12/20 17:00 122 21 114/67 (83) 100 01/12/20 16:00 40 01/12/20 16:00 116 01/12/20 16:00 Trach Collar 01/12/20 16:00 120 20 138/73 (94) 100 01/12/20 15:00 99.0 108 19 109/62 (78) 100 01/12/20 14:52 116 19 40 01/12/20 14:00 111 18 130/86 (101) 100 01/12/20 13:00 109 137/123 (128) 100 01/12/20 12:00 Trach Collar 01/12/20 12:00 40 01/12/20 12:00 99.7 118 20 129/86 (100) 100 01/12/20 12:00 121 01/12/20 11:43 115 133/85 01/12/20 11:30 105 18 40 01/12/20 11:00 115 23 133/85 (101) 100 01/12/20 10:32 112 24 40 01/12/20 10:31 100 01/12/20 10:30 99.5 01/12/20 10:00 125 23 156/80 (105) 100 Objective: CONDITION: critical General Appearance: morbidly obese , sedated, generalized anasarca ; on vent AC 600-18-40% PEEP 5 Lines, tubes and drains: LUE PICC new , intact HEENT: normocephalic, atraumatic, anicteric, Neck: trach with Shiley # 8, secretions moderate amount, yellow color, thick consistency Respiratory/Chest: chest wall non-tender, no accessory muscle use, BS overall clear, Cardiovascular/Chest: irregularly irregular - A fib , tachy , distant heart sounds, Abdomen: normal bowel sounds, non tender , obese, soft ; G tube with TF : [place] Extremities: no calf tenderness, moderate edema - +3 BLE, R knee with large hematoma, edema, Skin Exam: warm/dry, multiple tattoos Neurologic: sedated Musculoskeletal: normal muscle bulk Micro: Microbiology Date/Time Source Procedure Growth Status 01/11/20 04:20 Stool Clostridium difficile Toxin Assay - Final Complete Accucheck: 121 Critical Care - Subjective ROS Limited/Unobtainable: Yes Interval Events: febrile, tachycardic with A fib/chronic not tolerating PS trials so far ABG stable Condition: critical IV Access: PICC - LUE PICC intact EKG Rhythm: Atrial Fibrillation - with RVR FI02: 40 Vent Support Breath Rate: 18 Vent Support Mode: AC Vent Tidal Volume: 600 Sputum Amount: Small PEEP: 5.0 PIP: 39 Tube Feeding Amount: 20 I&O: Intake and Output 01/12/20 01/13/20 19:00 07:00 Intake Total 840 ml 300 ml Output Total 1370 ml 680 ml Balance -530 ml -380 ml Free Water 300 ml 30 ml IV Total 50 ml Tube Feeding 540 ml 220 ml Output Urine Total 1370 ml 680 ml CXR: 01/12 Midline tracheostomy tube. Left upper extremity PICC line terminates in the left brachycephalic vein. Mild-moderate vascular congestion, which is mildly increased when compared to January 10, 2020. Moderate left pleural effusion, which has mildly increased when compared to January 10, 2020. No pneumothorax. Cardiomegaly. Calcified aorta. Colt Keen MD 01/13/20 1348: Critical Care - Asmt/Plan Assessment/Plan: Patient seen and examined with [employer]. Agree with above A&P as it reflects our joint deliberations. Time Spent (Minutes): 40 - cc Luz Bowen NP Jan 13, 2020 09:11 Colt Keen MD Jan 13, 2020 13:48
--- NOTE | 2020-01-13 09:19 | General Progress Note ---
Subjective ROS Limited/Unobtainable: No Allergies: Coded Allergies: ERYTHROMYCIN BASE (Verified Allergy, Severe, 12/12/19) HALOPERIDOL (Verified Allergy, Unknown, 12/12/19) VANCOMYCIN (Unverified Adverse Reaction, Intermediate, Shortness of Breath, 12/12/19) Objective Last 24 Hour Vital Signs Date Time Temp Pulse Resp B/P (MAP) Pulse Ox O2 Delivery O2 Flow Rate FiO2 01/13/20 08:28 155 158/94 01/13/20 07:05 146 25 40 01/13/20 07:00 139 23 135/75 (95) 97 01/13/20 06:00 117 19 124/68 (86) 100 01/13/20 05:17 119 111/67 01/13/20 05:00 113 19 111/67 (82) 100 01/13/20 04:12 136 151/80 01/13/20 04:00 137 01/13/20 04:00 Trach Collar 01/13/20 04:00 100.5 149 23 151/80 (103) 96 01/13/20 04:00 40 01/13/20 03:20 124 18 40 01/13/20 03:00 139 21 118/73 (88) 95 01/13/20 02:00 122 20 131/73 (92) 100 01/13/20 01:34 101.0 01/13/20 01:00 108 19 111/62 (78) 100 01/13/20 00:00 101.5 106 19 116/65 (82) 100 01/13/20 00:00 Trach Collar 01/13/20 00:00 110 01/12/20 23:19 104 18 40 01/12/20 23:14 113 135/64 01/12/20 23:00 110 23 135/64 (87) 100 01/12/20 22:00 110 19 123/72 (89) 100 01/12/20 21:00 113 21 129/72 (91) 100 01/12/20 20:44 102.0 01/12/20 20:02 122 116/79 01/12/20 20:00 102.1 134 20 116/79 (91) 100 01/12/20 20:00 Trach Collar 01/12/20 20:00 40 01/12/20 20:00 135 01/12/20 19:25 131 26 40 01/12/20 19:00 130 19 116/85 (95) 100 01/12/20 18:00 140 25 143/102 (116) 76 01/12/20 17:26 130 114/67 01/12/20 17:00 122 21 114/67 (83) 100 01/12/20 16:00 40 01/12/20 16:00 116 01/12/20 16:00 Trach Collar 01/12/20 16:00 120 20 138/73 (94) 100 01/12/20 15:00 99.0 108 19 109/62 (78) 100 01/12/20 14:52 116 19 40 01/12/20 14:00 111 18 130/86 (101) 100 01/12/20 13:00 109 137/123 (128) 100 01/12/20 12:00 Trach Collar 01/12/20 12:00 40 01/12/20 12:00 99.7 118 20 129/86 (100) 100 01/12/20 12:00 121 01/12/20 11:43 115 133/85 01/12/20 11:30 105 18 40 01/12/20 11:00 115 23 133/85 (101) 100 01/12/20 10:32 112 24 40 01/12/20 10:31 100 01/12/20 10:30 99.5 01/12/20 10:00 125 23 156/80 (105) 100 Intake and Output 01/12/20 01/13/20 19:00 07:00 Intake Total 840 ml 300 ml Output Total 1370 ml 680 ml Balance -530 ml -380 ml Free Water 300 ml 30 ml IV Total 50 ml Tube Feeding 540 ml 220 ml Output Urine Total 1370 ml 680 ml Laboratory Tests 01/12/20 11:46: POC Whole Blood Glucose 135H 01/12/20 23:17: POC Whole Blood Glucose [Pending] 01/13/20 05:19: POC Whole Blood Glucose 121H 01/13/20 08:26: Arterial Blood pH 7.456H, Arterial Blood Partial Pressure CO2 36.7, Arterial Blood Partial Pressure O2 86.8, Arterial Blood HCO3 25.3, Arterial Blood Oxygen Saturation 95.6, Arterial Blood Base Excess 1.4, Eugene Test Positive Height (Feet): 5 Height (Inches): 6.00 Weight (Pounds): 343 General Appearance: no apparent distress EENT: normal ENT inspection Neck: supple Cardiovascular: normal rate Respiratory/Chest: decreased breath sounds Abdomen: normal bowel sounds, non tender, soft Extremities: non-tender Assessment/Plan Problem List: (1) CKD (chronic kidney disease) stage 3, GFR 30-59 ml/min ICD Codes: N18.3 - Chronic kidney disease, stage 3 (moderate) SNOMED: 278422591 (2) COPD (chronic obstructive pulmonary disease) ICD Codes: J44.9 - Chronic obstructive pulmonary disease, unspecified SNOMED: 27128929 (3) Smoker ICD Codes: F17.200 - Nicotine dependence, unspecified, uncomplicated SNOMED: 77024051 (4) GERD (gastroesophageal reflux disease) ICD Codes: K21.9 - Gastro-esophageal reflux disease without esophagitis SNOMED: 836381026 (5) Atrial fibrillation with RVR ICD Codes: I48.91 - Unspecified atrial fibrillation SNOMED: 472855856726994 Status: stable Assessment/Plan: pepcid fu H&H monitor labs bowel regimen fu cardiology recs icu care ppi cbc in am s/p Trach and PEG GTF monitor for residuals Mervin Victoria MD Jan 13, 2020 09:19
--- NOTE | 2020-01-13 10:00 | NUR ---
NURSE NOTES: Morning medications administered per order. Tolerated well. Will closely monitor the patient. Will continue plan of care. Addendum: 01/13/20 at 1523 by Samir Collins RN Tylenol administered for pain based on FLACC score. Will continue plan of care.
--- NOTE | 2020-01-13 11:00 | NUR ---
NURSE NOTES: Dr. Dumont at the bedside assessed the patient. Notified the patient's condition including fever, Afib w/ RVR with HR of 130-150s, and no lab order for today. Per Dr. Dumont, no lab today and will check tomorrow. Also, Dr. Dumont ordered to administer Lovenox even with the low hemoglobin and platelet. Will administer per order. Will closely monitor the patient. Will continue plan of care.
--- NOTE | 2020-01-13 12:00 | NUR ---
NURSE NOTES: Medications administered per order. Tolerated well. BS 134 noted. No Novolog coverage per protocol. Will closely monitor the patient. Will continue plan of care.
--- NOTE | 2020-01-13 12:30 | NUR ---
NURSE NOTES: Weaning trial for vent done per order but did not tolerated well. Vent back to AC mode due to high RR and HR. Notified to Dr. Keen. Will closely monitor the patient. Will continue plan of care.
--- NOTE | 2020-01-13 12:30 | NUR ---
NURSE NOTES: Dr. Beasley at the bedside assessed the patient. Notified ongoing fever even with Tylenol. Dr. Beasley will review and order it. Will closely monitor the patient. Will continue plan of care.
[2020-01-13] MEDS: Enoxaparin 60mg Inj SUBQ SCH (12:33)
--- NOTE | 2020-01-13 12:45 | NUR ---
RESPIRATORY NOTE: Placed pt on CPAP PS 8 @ 1206. HR 130. Spo2 100% Spont VT 400 Spont RR 25 RSBI 74 VC 289 NIF -20 Placed Pt back on previous AC Vent settings @ 1240 due to increased RR to 40 and HR 142. SPo2 94-98% during weaning. Pt tolerated SBT for 34 mins. NOEL Daniels aware. Will continue to monitor and follow plan of care.
--- NOTE | 2020-01-13 13:00 | NUR ---
NURSE NOTES: Dr. Keen at the bedside assessed the patient. Notified updated patient's condition. Based on Dr. Keen's order, thoracentesis scheduled on 01/14/2020. Per Dr. Keen, hold Lovenox only for 01/13 morning dose. Will endorse to next shift nurse. Will continue plan of care.
--- NOTE | 2020-01-13 13:47 | Infectious Diseases Prog Note ---
Assessment/Plan Assessment/Plan ASSESSMENT AND PLAN: 1. MDR acinetobacter pna - S-minocycline, I-colistin, polymyxin hx esbl e.coli uti/pyelonephritis, sepsis, leukocytosis, fevers mrsa and vre colonization, NATALIE, respiratory distress/failure Fungemia - + yeast in blood - ID still pending hx mrsa pna/acinetobacter pna hx VRE uti covid-19 infection right leg swelling and redness noted, ? cellulitis, ? infected hematoma, ? wound infection - minocycline - day # 5, bactim - day # 3 for acinetobacter pna - cefepime and flagyl added to cover possible wound/hematoma infection - s/p micafungin - surveillance cultures ordered for fevers - s/p remdesivir, on dexamethasone - monitor labs and chest x-ray - ? debridement right leg per surgery when patient stable - d/w pharmacy 2. Chronic kidney failure, acute renal failure. 3. COPD. 4. Pulmonary followup. 5. Renal followup. 6. History of falls. 7. Atrial fibrillation. Cardiology followup. 8. Obesity. 9. Gait disorder. 10. Schizophrenia. 11. Homeless. 12. Allergic to erythromycin, haloperidol, and vancomycin. 13. Social history is negative. 14. Family history is noncontributory. 15. MAR is noted. 16. Case discussed with RN. 17. Continue treatment per Dr. Dumont and consultants. Subjective Constitutional: Reports: fever, other - + vent HEENT: Reports: congestion Respiratory: Reports: shortness of breath Gastrointestinal/Abdominal: Denies: nausea, vomiting Allergies: Coded Allergies: ERYTHROMYCIN BASE (Verified Allergy, Severe, 12/12/19) HALOPERIDOL (Verified Allergy, Unknown, 12/12/19) VANCOMYCIN (Unverified Adverse Reaction, Intermediate, Shortness of Breath, 12/12/19) Objective Last 24 Hour Vital Signs Date Time Temp Pulse Resp B/P (MAP) Pulse Ox O2 Delivery O2 Flow Rate FiO2 01/13/20 12:40 40 01/13/20 12:32 138 138/65 01/13/20 12:06 130 25 01/13/20 12:00 133 32 138/58 (84) 97 01/13/20 12:00 Mechanical Ventilator 01/13/20 12:00 40 01/13/20 12:00 139 01/13/20 11:30 132 26 40 01/13/20 11:00 118 22 123/84 (97) 100 10/4/20 10:00 121 21 113/70 (84) 98 01/13/20 09:00 159 23 155/96 (115) 98 01/13/20 08:28 155 158/94 01/13/20 08:00 40 01/13/20 08:00 100.6 148 25 153/94 (113) 97 01/13/20 08:00 Mechanical Ventilator 01/13/20 08:00 40 01/13/20 08:00 Trach Collar 01/13/20 08:00 111 01/13/20 07:35 146 20 100 Mechanical Ventilator 40 01/13/20 07:05 146 25 40 01/13/20 07:00 139 23 135/75 (95) 97 01/13/20 06:00 117 19 124/68 (86) 100 01/13/20 05:17 119 111/67 01/13/20 05:00 113 19 111/67 (82) 100 01/13/20 04:12 136 151/80 01/13/20 04:00 137 01/13/20 04:00 Trach Collar 01/13/20 04:00 100.5 149 23 151/80 (103) 96 01/13/20 04:00 40 01/13/20 03:20 124 18 40 01/13/20 03:00 139 21 118/73 (88) 95 01/13/20 02:00 122 20 131/73 (92) 100 01/13/20 01:34 101.0 01/13/20 01:00 108 19 111/62 (78) 100 01/13/20 00:00 101.5 106 19 116/65 (82) 100 01/13/20 00:00 Trach Collar 01/13/20 00:00 110 01/12/20 23:19 104 18 40 01/12/20 23:14 113 135/64 01/12/20 23:00 110 23 135/64 (87) 100 01/12/20 22:00 110 19 123/72 (89) 100 01/12/20 21:00 113 21 129/72 (91) 100 01/12/20 20:44 102.0 01/12/20 20:02 122 116/79 01/12/20 20:00 102.1 134 20 116/79 (91) 100 01/12/20 20:00 Trach Collar 01/12/20 20:00 40 01/12/20 20:00 135 01/12/20 19:25 131 26 40 01/12/20 19:00 130 19 116/85 (95) 100 01/12/20 18:00 140 25 143/102 (116) 76 01/12/20 17:26 130 114/67 01/12/20 17:00 122 21 114/67 (83) 100 01/12/20 16:00 40 01/12/20 16:00 116 01/12/20 16:00 Trach Collar 01/12/20 16:00 120 20 138/73 (94) 100 01/12/20 15:00 99.0 108 19 109/62 (78) 100 01/12/20 14:52 116 19 40 01/12/20 14:00 111 18 130/86 (101) 100 Height (Feet): 5 Height (Inches): 6.00 Weight (Pounds): 343 General Appearance: other - on vent, no pressors HEENT: normocephalic, atraumatic, anicteric Respiratory/Chest: crackles/rales, rhonchi - bilaterally, rhonchi - left Chest x-ray - 11/17/19 - Procedure: XRAY Chest 1v Indication: Shortness of breath Technique: One view of the chest Comparison: 12/17/2019 Findings: The heart is enlarged. There is bilateral interstitial and airspace d isease is again demonstrated, probably unchanged allowing for differences in degree of inspiration. Impression: Unchanged, over one day, findings as above. Chest x-ray - 12/21/19 - Procedure: XRAY Chest 1v Indication: Shortness of breath Technique: One view of the chest Comparison: 12/19/2019 Findings: The heart is enlarged. Bilateral extensive infiltrates are again demonstrated, stable to slightly worse allowing for differences in exposure technique. There is suggestion of increasing pleural fluid on the left. Nasogastric tube is again demonstrated. Impression: Stable to worsened bilateral extensive infiltrates, since exam of 2 days prior Increasing left pleural effusion Chest x-ray - 12/23/19 - IMPRESSION: 1. No significant interval change from the prior chest x-ray. 2. Persistent moderate left pleural effusion and mild right pleural effusion. 3. Pulmonary vascular congestion. 4. Persistent opacity in the left lung base, which may represent atelectasis versus pneumonia. Chest x-ray - 12/25/19 - Procedure: XRAY Chest 1v Procedure: XRAY Chest 1v Reason for study: Reason For Exam: SOB Comparison films: 12/24/2019. FINDINGS: The tracheal tube and NG tube remain in place. Vascular prominence and bilateral hazy alveolar densities are unchanged. Cardiomegaly and small effusions also unchanged. The bony thorax appear unremarkable. IMPRESSION: NO SIGNIFICANT CHANGE COMPARED TO PREVIOUS EXAM. 12/26/19 - Procedure: XRAY Chest 1v Procedure: XRAY Chest 1v Reason for study: Reason For Exam: SOB Comparison films: 12/25/2019. FINDINGS: Endotracheal tube and NG tube remain in place. Hazy bilateral alveolar densities are essentially unchanged given the difference in technique. Cardiomegaly and right effusion again noted. The bony thorax appear unremarkable. IMPRESSION: NO SIGNIFICANT CHANGE COMPARED TO PREVIOUS EXAM. Chest x-ray - 12/28/19 - Procedure: XRAY Chest 1v Indication: Reason For Exam: SOB Technique: Single AP view of the chest. Comparison: Chest radiograph dated 12/27/2019 Findings: Exam is again noted to be diagnostically limited due to underpenetration, patient rotation, and exclusion of part of the left hemithorax from the [id number]. Within these limitations: No significant change in appearance of visualized cardiomediastinal silhouette. Unchanged layering right pleural effusion with associated basilar airspace opacities. Likely retrocardiac consolidation, unchanged. No apical pneumothoraces. Unchanged enteric and endotracheal tubes. Unchanged left PICC. Chest x-ray - 12/30/19 - FINDINGS: Distal tip of ET tube is above devika. Distal tip of the enteric tube is in stomach. Stable left arm PICC line with distal tip likely in the left subclavian vein. Cardiac silhouette is within normal limits allowing for portable and rotated technique. Low lung volumes with elevated left hemidiaphragm. Again noted is a moderate right effusion with patchy infiltrates in the right mid to lower lung. Probable retrocardiac infiltrates. IMPRESSION: Little interval change in moderate right effusion and pneumonia/aspiration. Suspected retrocardiac infiltrate. The distal tip of the left arm PICC line is not well seen past the level of the left mid subclavian vein. Corea location is in the cavoatrial junction. Recommend advancement. <MYCVCSECTION> Chest x-ray - 01/04/20 - Procedure: XRAY Chest 1v Indication: Dyspnea Technique: One view of the chest Comparison: 01/02/2020 Findings: Bilateral interstitial and airspace congestion, right pleural effusion, cardiomegaly persists, unchanged. Tube and line positions are unchanged Impression: Unchanged, over one day, findings as above. Chest x-ray - 01/06/20 - IMPRESSION: 1. Endotracheal tube terminates in the region of the lower thoracic trachea, approximately 2.6 cm above the devika. Enteric tube is difficult to visualize distally. 2. Similar opacities predominantly in the mid and lower lungs which may represent combination of pleural effusions and atelectasis versus pneumonia versus edema. Chest x-ray - 01/07/20 - Procedure: XRAY Chest 1v Indication: Shortness of breath Technique: One view of the chest Comparison: 01/06/2020 Findings: Stable satisfactory positions of endotracheal and orogastric tubes. Mild interstitial congestion and hazy ankle opacities are again demonstrated bilaterally. There appears to be a small amount of pleural fluid bilaterally, probably unchanged. Impression: Unchanged, over one day, findings as above. Chest x-ray - 01/10/20 - Procedure: XRAY Chest 1v Indication: There is a breath Technique: One view of the chest Comparison: 01/08/2020 Findings: Interim conversion of endotracheal tube to a tracheostomy, appearing well positioned. Orogastric tube remains. Bilateral interstitial and airspace infiltrates versus edema persists, unchanged. Small bilateral pleural effusions persist, unchanged. Impression: Interim tracheostomy placement. No radiographically evident complication Stable bilateral pleural and parenchymal disease Microbiology Date/Time Source Procedure Growth Status 01/11/20 04:20 Stool Clostridium difficile Toxin Assay - Final Complete Laboratory Tests Test 01/12/20 23:17 01/13/20 05:19 01/13/20 08:26 01/13/20 12:42 POC Whole Blood Glucose Pending 121 MG/DL (74-106) H Pending Arterial Blood pH 7.456 (7.350-7.450) Arterial Blood Partial Pressure CO2 36.7 mmHg (35.0-45.0) Arterial Blood Partial Pressure O2 86.8 mmHg (75.0-100.0) Arterial Blood HCO3 25.3 mmol/L (22.0-26.0) Arterial Blood Oxygen Saturation 95.6 % (95-100) Arterial Blood Base Excess 1.4 (-2-2) Eugene Test Positive Current Medications Medications (Trade) Dose Ordered Sig/Shiraz Route PRN Reason Start Time Stop Time Status Last Admin Dose Admin Acetaminophen (Tylenol) 650 mg Q4H PRN GT Mild Pain (Pain Scale 1-3) 01/12/20 10:00 02/11/20 09:59 01/13/20 08:33 Acetaminophen (Tylenol) 650 mg Q4H PRN GT Temp >100.5 01/12/20 10:00 02/11/20 09:59 01/13/20 13:38 Acetazolamide (Diamox) 500 mg TWICE A DAY NG 01/02/20 18:00 02/01/20 17:59 01/13/20 08:27 Albuterol Sulfate (Proventil MDI) 2 puff Q4H PRN INH Shortness of Breath 12/24/19 10:30 03/23/20 10:29 01/12/20 09:44 Bacitracin (Bacitracin) 2 applic EVERY 12 HOURS TOPIC 01/06/20 21:00 03/12/20 08:59 01/13/20 08:29 Cefepime HCl 1 gm/ Dextrose 50 ml @ 100 mls/hr Q12HR IVPB 01/12/20 21:00 01/19/20 20:59 01/13/20 08:26 Chlorhexidine Gluconate (Jessie-Hex 2%) 1 applic DAILY@1999 TOPIC 12/24/19 20:00 03/23/20 19:59 01/12/20 19:55 Chlorpromazine (Thorazine) 50 mg Q6H PRN IM agitation 12/30/19 02:30 01/29/20 02:29 01/12/20 11:43 Clotrimazole (Lotrimin) 1 applic EVERY 12 HOURS TOPIC 01/05/20 09:00 03/12/20 08:59 01/13/20 08:29 Dextrose (Dextrose 50%) 25 ml Q30M PRN IV Hypoglycemia 12/23/19 10:45 03/22/20 10:44 Dextrose (Dextrose 50%) 50 ml Q30M PRN IV Hypoglycemia 12/23/19 10:45 03/22/20 10:44 Diltiazem HCl (Cardizem Tab) 60 mg Q6HR NG 01/11/20 00:00 02/10/20 00:00 01/13/20 12:32 Docusate Sodium (Colace) 100 mg BID NG 12/25/19 09:00 01/24/20 08:59 01/13/20 08:26 Enoxaparin Sodium (Lovenox) 60 mg DAILY SUBQ 01/13/20 12:00 04/12/20 11:59 01/13/20 12:33 Furosemide (Lasix) 100 mg BID IV 01/12/20 18:00 02/11/20 17:59 01/13/20 08:25 Insulin Aspart (NovoLOG) EVERY 6 HOURS SUBQ 01/05/20 06:00 03/22/20 11:29 01/12/20 06:46 Magnesium Hydroxide (Mom) 30 ml HSPRN PRN NG Constipation 12/22/19 15:15 01/21/20 15:14 01/02/20 22:20 Metoclopramide HCl (Reglan) 5 mg Q6H IVP 01/05/20 09:15 02/04/20 09:14 01/13/20 08:31 Metoprolol Tartrate (Lopressor) 50 mg Q12HR NG 12/22/19 21:00 03/18/20 20:59 01/13/20 08:28 Metronidazole (Flagyl) 500 mg EVERY 8 HOURS ORAL 01/12/20 22:00 01/19/20 21:59 01/13/20 13:37 Midazolam HCl (Versed 2mg/2ml vial) 2 mg Q1H PRN IVP Agitation 01/10/20 17:15 01/17/20 17:14 01/13/20 04:04 Minocycline HCl (Minocin) 100 mg Q12HR ORAL 01/10/20 21:00 01/17/20 20:59 01/13/20 08:28 Pantoprazole (Protonix) 40 mg EVERY 12 HOURS IVP 01/01/20 21:00 01/31/20 20:59 01/13/20 08:25 Polyethylene Glycol (Miralax) 17 gm BEDTIME NG 12/22/19 21:00 01/18/20 20:59 01/12/20 20:02 Potassium Chloride (K-Dur) 40 meq EVERY 12 HOURS NG 01/05/20 11:45 04/04/20 11:14 01/13/20 08:27 Quetiapine Fumarate (SEROqueL) 150 mg EVERY 8 HOURS ORAL 01/11/20 22:00 02/25/20 21:59 01/13/20 13:37 Trimethoprim/ Sulfamethoxazole (Bactrim-DS) 40 ml EVERY 12 HOURS GT 01/11/20 18:00 01/18/20 17:59 01/13/20 08:24 Aleisha Coronel MD Jan 13, 2020 13:47
--- NOTE | 2020-01-13 13:59 | General Progress Note ---
Subjective ROS Limited/Unobtainable: Yes Allergies: Coded Allergies: ERYTHROMYCIN BASE (Verified Allergy, Severe, 12/12/19) HALOPERIDOL (Verified Allergy, Unknown, 12/12/19) VANCOMYCIN (Unverified Adverse Reaction, Intermediate, Shortness of Breath, 12/12/19) Objective Last 24 Hour Vital Signs Date Time Temp Pulse Resp B/P (MAP) Pulse Ox O2 Delivery O2 Flow Rate FiO2 01/13/20 13:00 117 24 124/74 (91) 99 01/13/20 12:40 40 01/13/20 12:32 138 138/65 01/13/20 12:06 130 25 01/13/20 12:00 133 32 138/58 (84) 97 01/13/20 12:00 Mechanical Ventilator 01/13/20 12:00 40 01/13/20 12:00 139 01/13/20 11:30 132 26 40 01/13/20 11:00 118 22 123/84 (97) 100 01/13/20 10:00 121 21 113/70 (84) 98 01/13/20 09:00 159 23 155/96 (115) 98 01/13/20 08:28 155 158/94 01/13/20 08:00 40 01/13/20 08:00 100.6 148 25 153/94 (113) 97 01/13/20 08:00 Mechanical Ventilator 01/13/20 08:00 40 01/13/20 08:00 Trach Collar 01/13/20 08:00 111 01/13/20 07:35 146 20 100 Mechanical Ventilator 40 01/13/20 07:05 146 25 40 01/13/20 07:00 139 23 135/75 (95) 97 01/13/20 06:00 117 19 124/68 (86) 100 01/13/20 05:17 119 111/67 01/13/20 05:00 113 19 111/67 (82) 100 01/13/20 04:12 136 151/80 01/13/20 04:00 137 01/13/20 04:00 Trach Collar 01/13/20 04:00 100.5 149 23 151/80 (103) 96 01/13/20 04:00 40 01/13/20 03:20 124 18 40 01/13/20 03:00 139 21 118/73 (88) 95 01/13/20 02:00 122 20 131/73 (92) 100 01/13/20 01:34 101.0 01/13/20 01:00 108 19 111/62 (78) 100 01/13/20 00:00 101.5 106 19 116/65 (82) 100 01/13/20 00:00 Trach Collar 01/13/20 00:00 110 01/12/20 23:19 104 18 40 01/12/20 23:14 113 135/64 01/12/20 23:00 110 23 135/64 (87) 100 01/12/20 22:00 110 19 123/72 (89) 100 01/12/20 21:00 113 21 129/72 (91) 100 01/12/20 20:44 102.0 01/12/20 20:02 122 116/79 01/12/20 20:00 102.1 134 20 116/79 (91) 100 01/12/20 20:00 Trach Collar 01/12/20 20:00 40 01/12/20 20:00 135 01/12/20 19:25 131 26 40 01/12/20 19:00 130 19 116/85 (95) 100 01/12/20 18:00 140 25 143/102 (116) 76 01/12/20 17:26 130 114/67 01/12/20 17:00 122 21 114/67 (83) 100 01/12/20 16:00 40 01/12/20 16:00 116 01/12/20 16:00 Trach Collar 01/12/20 16:00 120 20 138/73 (94) 100 01/12/20 15:00 99.0 108 19 109/62 (78) 100 01/12/20 14:52 116 19 40 01/12/20 14:00 111 18 130/86 (101) 100 Intake and Output 01/12/20 01/13/20 19:00 07:00 Intake Total 840 ml 300 ml Output Total 1370 ml 680 ml Balance -530 ml -380 ml Free Water 300 ml 30 ml IV Total 50 ml Tube Feeding 540 ml 220 ml Output Urine Total 1370 ml 680 ml Laboratory Tests 01/12/20 23:17: POC Whole Blood Glucose [Pending] 01/13/20 05:19: POC Whole Blood Glucose 121H 01/13/20 08:26: Arterial Blood pH 7.456H, Arterial Blood Partial Pressure CO2 36.7, Arterial Blood Partial Pressure O2 86.8, Arterial Blood HCO3 25.3, Arterial Blood Oxygen Saturation 95.6, Arterial Blood Base Excess 1.4, Eugene Test Positive 01/13/20 12:42: POC Whole Blood Glucose [Pending] Height (Feet): 5 Height (Inches): 6.00 Weight (Pounds): 343 General Appearance: lethargic, morbidly obese, other - trach vent Neck: normal alignment Cardiovascular: regularly irregular Respiratory/Chest: rhonchi - bilaterally Abdomen: soft Edema: moderate edema Neurologic: unresponsive Assessment/Plan Problem List: (1) Schizophrenia ICD Codes: F20.9 - Schizophrenia, unspecified SNOMED: 39459488 (2) GERD (gastroesophageal reflux disease) ICD Codes: K21.9 - Gastro-esophageal reflux disease without esophagitis SNOMED: 537082887 (3) Lymphadema (4) Smoker ICD Codes: F17.200 - Nicotine dependence, unspecified, uncomplicated SNOMED: 41833469 (5) Atrial fibrillation with rapid ventricular response ICD Codes: I48.91 - Unspecified atrial fibrillation SNOMED: 995379302187745 (6) CKD (chronic kidney disease) stage 3, GFR 30-59 ml/min ICD Codes: N18.3 - Chronic kidney disease, stage 3 (moderate) SNOMED: 048839003 (7) NATALIE (acute kidney injury) ICD Codes: N17.9 - Acute kidney failure, unspecified SNOMED: 0486783, 80477123 (8) COPD (chronic obstructive pulmonary disease) ICD Codes: J44.9 - Chronic obstructive pulmonary disease, unspecified SNOMED: 51727920 (9) UGI bleed ICD Codes: K92.2 - Gastrointestinal hemorrhage, unspecified SNOMED: 01406187 (10) Dysphagia ICD Codes: R13.10 - Dysphagia, unspecified SNOMED: 34166866, 875032459 (11) UTI (urinary tract infection) ICD Codes: N39.0 - Urinary tract infection, site not specified SNOMED: 35445539 (12) ESBL (extended spectrum beta-lactamase) producing bacteria infection ICD Codes: A49.9 - Bacterial infection, unspecified; Z16.12 - Extended spectrum beta lactamase (ESBL) resistance SNOMED: 526392747 (13) Dehydration ICD Codes: E86.0 - Dehydration SNOMED: 00558766 (14) CHF exacerbation ICD Codes: I50.9 - Heart failure, unspecified SNOMED: 516068055, 70739334337804 (15) Acute respiratory failure ICD Codes: J96.00 - Acute respiratory failure, unspecified whether with hypoxia or hypercapnia SNOMED: 78546883 (16) COVID-19 ICD Codes: U07.1 - COVID-19 SNOMED: 355832630 (17) Pneumonia ICD Codes: J18.9 - Pneumonia, unspecified organism SNOMED: 715102137 Qualifiers: (18) Hematoma of lower leg ICD Codes: S80.10XA - Contusion of unspecified lower leg, initial encounter SNOMED: 457642592 (19) CKD (chronic kidney disease) stage 3, GFR 30-59 ml/min ICD Codes: N18.3 - Chronic kidney disease, stage 3 (moderate) SNOMED: 954163628 Status: stable Assessment/Plan: resp distress, icu, trach, vent, natalie on ckd,,now stable, I/O reviewed, hematoma RLE stop eliquis , lovenox now iv protonix, rx esbl and + vre uti,g+ cocci , remains high risk, d/w psych, ID, cardiology, chf and on lasix ,covid neg prior now +, grave prognosis, fungemia treated with micafungin likely will be unable to wean for a long time, agitated when tried to wean and had apnea 01/01, cpap trial 01/02 + had distress/tachycardia , ,all lab and orders reviewed , no active bleeding , low Hb to transfuse 01/08 preop, done, decrease lasix for chf , reculture, d/w dr curran needs trach, done,Needs gastrostomy unable to sign, done Dr Curran thinks that she might be able to wean gradually after trach placed, febrile again and infiltrates, trach scheduled 01/08, done, pancytopenia stable may be from sepsis or meds, posssible primarry BM disease, to observe ,immunofixation ordered, hypernatremia and free water gt, reduced lasix titrate sedatives , some distress earlier now resp status stable icu time 40 min Benjamin Dumont MD Jan 13, 2020 13:59
--- NOTE | 2020-01-13 14:00 | NUR ---
NURSE NOTES: Tylenol administered for fever. Will closely monitor the patient. Will continue plan of care.
--- NOTE | 2020-01-13 15:00 | NUR ---
NURSE NOTES: The patient is resting on the bed without acute distress or shortness of breath. Tolerating vent setting well. Will closely monitor the patient. Will continue plan of care.
[2020-01-13] MEDS ORDERED: NS 500ML ONE (15:59)
[2020-01-13] MEDS ORDERED: Tubing IV Secondary IV ONE (15:59)
[2020-01-13] MEDS ORDERED: NS 275ml ONE (15:59)
--- NOTE | 2020-01-13 16:00 | NUR ---
NURSE NOTES: Left message to Dr. Meek again regarding Afib with RVR w/ HR of 120-130s even with Metoprolol and Diltiazem GT earlier. Awaiting for further order. Will continue plan of care.
--- NOTE | 2020-01-13 16:18 | Surgery Progress Note ---
Surgery Progress Note Subjective Procedure Performed tracheostomy Additional Comments ill appearing leg stable draining hematoma trach stable Objective Last 24 Hour Vital Signs Date Time Temp Pulse Resp B/P (MAP) Pulse Ox O2 Delivery O2 Flow Rate FiO2 01/13/20 16:00 40 01/13/20 16:00 122 01/13/20 15:00 109 20 116/83 (94) 100 01/13/20 14:08 100.5 01/13/20 14:00 110 22 119/78 (92) 99 01/13/20 13:00 117 24 124/74 (91) 99 01/13/20 13:00 117 24 124/74 (91) 99 01/13/20 12:41 98 01/13/20 12:40 40 01/13/20 12:32 138 138/65 01/13/20 12:06 130 25 01/13/20 12:00 133 32 138/58 (84) 97 01/13/20 12:00 101.1 133 32 138/58 (84) 97 01/13/20 12:00 Mechanical Ventilator 01/13/20 12:00 40 01/13/20 12:00 139 01/13/20 12:00 Mechanical Ventilator 01/13/20 11:30 132 26 40 01/13/20 11:00 118 22 123/84 (97) 100 01/13/20 10:00 121 21 113/70 (84) 98 01/13/20 10:00 121 21 113/70 (84) 98 01/13/20 09:00 159 23 155/96 (115) 98 01/13/20 08:28 155 158/94 01/13/20 08:00 40 01/13/20 08:00 100.2 148 25 153/94 (113) 97 01/13/20 08:00 Mechanical Ventilator 01/13/20 08:00 40 01/13/20 08:00 Trach Collar 01/13/20 08:00 111 01/13/20 07:35 146 20 100 Mechanical Ventilator 40 01/13/20 07:05 146 25 40 01/13/20 07:00 139 23 135/75 (95) 97 01/13/20 06:00 117 19 124/68 (86) 100 01/13/20 05:17 119 111/67 01/13/20 05:00 113 19 111/67 (82) 100 01/13/20 04:12 136 151/80 01/13/20 04:00 137 01/13/20 04:00 Trach Collar 01/13/20 04:00 100.5 149 23 151/80 (103) 96 01/13/20 04:00 40 01/13/20 03:20 124 18 40 01/13/20 03:00 139 21 118/73 (88) 95 01/13/20 02:00 122 20 131/73 (92) 100 01/13/20 01:34 101.0 01/13/20 01:00 108 19 111/62 (78) 100 01/13/20 00:00 101.5 106 19 116/65 (82) 100 01/13/20 00:00 Trach Collar 01/13/20 00:00 110 01/12/20 23:19 104 18 40 01/12/20 23:14 113 135/64 01/12/20 23:00 110 23 135/64 (87) 100 01/12/20 22:00 110 19 123/72 (89) 100 01/12/20 21:00 113 21 129/72 (91) 100 01/12/20 20:44 102.0 01/12/20 20:02 122 116/79 01/12/20 20:00 102.1 134 20 116/79 (91) 100 01/12/20 20:00 Trach Collar 01/12/20 20:00 40 01/12/20 20:00 135 01/12/20 19:25 131 26 40 01/12/20 19:00 130 19 116/85 (95) 100 01/12/20 18:00 140 25 143/102 (116) 76 01/12/20 17:26 130 114/67 01/12/20 17:00 122 21 114/67 (83) 100 I&O Intake and Output 01/12/20 01/13/20 19:00 07:00 Intake Total 840 ml 300 ml Output Total 1370 ml 680 ml Balance -530 ml -380 ml Free Water 300 ml 30 ml IV Total 50 ml Tube Feeding 540 ml 220 ml Output Urine Total 1370 ml 680 ml Dressing: other Wound: other Cardiovascular: RSR Respiratory: decreased breath sounds Abdomen: soft, non-tender, present bowel sounds Extremities: edema, other Laboratory Tests Test 01/12/20 23:17 01/13/20 05:19 01/13/20 08:26 01/13/20 12:42 POC Whole Blood Glucose Pending 121 MG/DL (74-106) H Pending Arterial Blood pH 7.456 (7.350-7.450) Arterial Blood Partial Pressure CO2 36.7 mmHg (35.0-45.0) Arterial Blood Partial Pressure O2 86.8 mmHg (75.0-100.0) Arterial Blood HCO3 25.3 mmol/L (22.0-26.0) Arterial Blood Oxygen Saturation 95.6 % (95-100) Arterial Blood Base Excess 1.4 (-2-2) Eugene Test Positive Plan Problems: (1) Urinary tract infection (2) CHF exacerbation (3) History of schizophrenia (4) Atrial fibrillation with RVR (5) Schizophrenia (6) GERD (gastroesophageal reflux disease) (7) Smoker (8) Atrial fibrillation with rapid ventricular response (9) Lymphadema (10) COPD (chronic obstructive pulmonary disease) (11) CKD (chronic kidney disease) stage 3, GFR 30-59 ml/min (12) NATALIE (acute kidney injury) (13) Dehydration (14) Dysphagia (15) UTI (urinary tract infection) (16) UGI bleed (17) ESBL (extended spectrum beta-lactamase) producing bacteria infection (18) Constipation (19) Lactic acidosis (20) Tinea cruris (21) Onychomycosis (22) Emesis (23) Essential hypertension (24) Anemia (25) Cough (26) Depression (27) Depression (28) Edema (29) Rash (30) Opiate dependence (31) Opiate dependence (32) Opiate dependence (33) Opiate dependence (34) Pyelonephritis (35) Sepsis (36) UTI (urinary tract infection) (37) Nausea and vomiting (38) Abdominal pain Assessment & Plan: [age]-year-old female obese white abdominal pain deep tissue injury identified limited mobility on HD. KUB noted tube in place continue meds feeds Does not seem obstructed We will monitor lines noted. plan change resume tube feeds labs okay FINDINGS: Lower thorax: Obscuration of the left costophrenic angle suggestive of pleural effusion. Intraperitoneal space: No free air. Gastrointestinal tract: Unremarkable. No dilation. Bones/joints: Unremarkable. Tubes, lines and devices: The nasogastric tube has the tip at the mid inferior aspect of the gastric body. Other findings: Nonspecific gas pattern. Single frontal view of the abdomen demonstrates tip of the enteric tube and distal side-port projecting over the stomach. Gas is identified within the nondistended large bowel. There is a paucity of small bowel gas seen. Partially visualized left pleural effusion. No other significant interval change. (39) Chest pain (40) Chest pain (41) Nausea (42) Obesity (43) Chronic ulcer of leg (44) Chronic ulcer of leg (45) Chronic ulcer of leg (46) ACS (acute coronary syndrome) (47) Acute chest pain (48) Encounter for dressing change or suture removal (49) Left leg cellulitis (50) Acute encephalopathy (51) Encounter for wound re-check (52) Intractable nausea and vomiting (53) Infection due to ESBL-producing Escherichia coli (54) Chronic venous stasis (55) Change of dressing (56) Change of dressing (57) Change of dressing (58) Change of dressing (59) Change of dressing (60) Change of dressing (61) Change of dressing (62) Change of dressing (63) ESBL urine (64) Lymphadema (65) Lymphedema (66) Lymphedema (67) Lymphedema (68) Lymphedema (69) Lymphedema (70) Lymphedema (71) Lymphedema (72) Lymphedema (73) Open wound of foot (74) Open wound of foot (75) cellulitis (76) chronic lymphedema (77) chronic lymphedema (78) chronic lymphedema (79) hypertension uncontrolled (80) hypertension uncontrolled (81) Intertrigo (82) Sciatica (83) Cellulitis (84) Schizophrenia (85) Chronic bronchitis (86) HTN (hypertension) (87) Venous stasis ulcers (88) Medication refill (89) Chest pain, atypical (90) BMI 45.0-49.9, adult (91) Lymphedema of both lower extremities (92) hypertension uncontrolled (93) hypertension uncontrolled (94) hypertension uncontrolled (95) tenia corpus (96) Deep tissue injury Assessment & Plan: Morbidly obese pt whom presented on admission with Pressure injuries, Edemae bilat lower extremities eschar to dorsal aspects of metatarsals. Pt is very demanding of staff and can be resistive to repositioning. DTPI noted to L Sacrum(L)5.5cm x (W)2.5cm. Base of Pressure Injury is Maroon and indurated with surrounding non-blanchable erythema DTPI R Sacrum(L)5.5cm x (W)2.3cm. Base of Pressure Injury is maroon with purpuric center that is fluctuant. Pt complained of tenderness when minimally palpated. Bilat lower extremities are edematous . Dry eschar noted to nail matrix and tip of L 1st metatarsal, Dorsal L 2nd metatarsal, R 2nd and R 4th metatarsals. Both heels are boggy with non-Blanchable erythema. blisters forming on Right lower extremity anterior tibia. not infected cellulitis / edema on b/l le stable cont abx Tx.Plan: Apply Moisture Barrier Paste to Sacrum R and L gluteal cheeks. Cover with Opti foam drsgs. Change every 3 days and prn. Apply Betadine to dry eschar metatarsals both feet Daily. Apply Cavilon Skin Barrier to both heels. Cover each heel with Optifoam drsgs. Change every 7days and prn. Reposition at least every 2hours or as tolerated. Off-load heels with pillow. right leg hematoma stable critically ill and edema on right leg has compromised dermis over the hematoma. will likely need debridement once improved (97) COVID-19 Assessment & Plan: ++ on vent weaning abx as per ID (98) Respiratory failure Assessment & Plan: not able to wean safely will plan for trach case discussed with medical team, pulm, icu. recommended to trach given medical condition. medically indicated and recommended. s/p trach 01/08 s/p trach more comfortable less agitated on vent weaning (99) Pneumonia Juan Manuel Buckner Jan 13, 2020 16:18
--- NOTE | 2020-01-13 17:00 | NUR ---
NURSE NOTES: Bed bath given to the patient. Tolerated well. Tolerating vent setting and tube feeding well. Will closely monitor the patient. Will continue plan of care.
--- NOTE | 2020-01-13 17:13 | Cardiology Progress Note ---
Subjective DATE OF SERVICE: Jan 13, 2020 Doing poorly - remains in ICU in critical condition with guarded prognosis. Remains on vent support - failed weaning trials; now s/p trach BP range remaining low normal range; she had hypotensive episodes yesterday. Remains COVID19 positive. Monitor: AFIb with rapid rates worsening. Yesterday add'l doses of IV diltiazem were given for rapid rates. Had coffee ground material in NGTube and hematoma on right leg; anti-coagulation discont'd Venous Duplex: negative for DVT Renal fxn and free water deficit worsening CXR (01/13/20) increasing bilateral infiltrates/edema and eff'n - s/p trach Objective Last 24 Hour Vital Signs Date Time Temp Pulse Resp B/P (MAP) Pulse Ox O2 Delivery O2 Flow Rate FiO2 01/13/20 17:00 122 24 146/99 (115) 99 01/13/20 16:00 Mechanical Ventilator 01/13/20 16:00 122 21 130/72 (91) 97 01/13/20 16:00 40 01/13/20 16:00 100.3 108 18 130/72 (91) 100 01/13/20 16:00 122 01/13/20 15:30 129 24 40 01/13/20 15:00 109 20 116/83 (94) 100 01/13/20 14:08 100.5 01/13/20 14:00 110 22 119/78 (92) 99 01/13/20 13:00 117 24 124/74 (91) 99 01/13/20 13:00 117 24 124/74 (91) 99 01/13/20 12:41 98 01/13/20 12:40 40 01/13/20 12:32 138 138/65 01/13/20 12:06 130 25 01/13/20 12:00 133 32 138/58 (84) 97 01/13/20 12:00 101.1 133 32 138/58 (84) 97 01/13/20 12:00 Mechanical Ventilator 01/13/20 12:00 40 01/13/20 12:00 139 01/13/20 12:00 Mechanical Ventilator 01/13/20 11:30 132 26 40 01/13/20 11:00 118 22 123/84 (97) 100 01/13/20 10:00 121 21 113/70 (84) 98 01/13/20 10:00 121 21 113/70 (84) 98 01/13/20 09:00 159 23 155/96 (115) 98 01/13/20 08:28 155 158/94 01/13/20 08:00 40 01/13/20 08:00 100.2 148 25 153/94 (113) 97 01/13/20 08:00 Mechanical Ventilator 01/13/20 08:00 40 01/13/20 08:00 Trach Collar 01/13/20 08:00 111 01/13/20 07:35 146 20 100 Mechanical Ventilator 40 01/13/20 07:05 146 25 40 01/13/20 07:00 139 23 135/75 (95) 97 01/13/20 06:00 117 19 124/68 (86) 100 01/13/20 05:17 119 111/67 01/13/20 05:00 113 19 111/67 (82) 100 01/13/20 04:12 136 151/80 01/13/20 04:00 137 01/13/20 04:00 Trach Collar 01/13/20 04:00 100.5 149 23 151/80 (103) 96 01/13/20 04:00 40 01/13/20 03:20 124 18 40 01/13/20 03:00 139 21 118/73 (88) 95 01/13/20 02:00 122 20 131/73 (92) 100 01/13/20 01:34 101.0 01/13/20 01:00 108 19 111/62 (78) 100 01/13/20 00:00 101.5 106 19 116/65 (82) 100 01/13/20 00:00 Trach Collar 01/13/20 00:00 110 01/12/20 23:19 104 18 40 01/12/20 23:14 113 135/64 01/12/20 23:00 110 23 135/64 (87) 100 01/12/20 22:00 110 19 123/72 (89) 100 01/12/20 21:00 113 21 129/72 (91) 100 01/12/20 20:44 102.0 01/12/20 20:02 122 116/79 01/12/20 20:00 102.1 134 20 116/79 (91) 100 01/12/20 20:00 Trach Collar 01/12/20 20:00 40 01/12/20 20:00 135 01/12/20 19:25 131 26 40 01/12/20 19:00 130 19 116/85 (95) 100 01/12/20 18:00 140 25 143/102 (116) 76 01/12/20 17:26 130 114/67 ROS: unchanged from 12/12/19 HEENT: Orally intubated, Mechanically Ventilated, Thin secretions ET Tube, other - NGtube RHYTHM: NSR, ST LUNGS: diminished breath sounds, right-sided rhonchi CARDIAC: normal S1 and S2, irregularly irregular ABDOMEN: other - obese EXTREMITIES: moderate edema - mostly non pitting, other - hematoma right leg Laboratory Tests Test 01/12/20 23:17 01/13/20 05:19 01/13/20 08:26 01/13/20 12:42 POC Whole Blood Glucose Pending 121 MG/DL (74-106) H Pending Arterial Blood pH 7.456 (7.350-7.450) Arterial Blood Partial Pressure CO2 36.7 mmHg (35.0-45.0) Arterial Blood Partial Pressure O2 86.8 mmHg (75.0-100.0) Arterial Blood HCO3 25.3 mmol/L (22.0-26.0) Arterial Blood Oxygen Saturation 95.6 % (95-100) Arterial Blood Base Excess 1.4 (-2-2) Eugene Test Positive Microbiology Date/Time Source Procedure Growth Status 01/11/20 04:20 Stool Clostridium difficile Toxin Assay - Final Complete Assessment/Plan Assessment/Plan CRITICAL AND GUARDED Acute respiratory failure - s/p trach Acute on chronic respiratory acidosis AFiB with labile heart rates CHF, ac/chr diastolic BLE edema Sepsis with shock obesity COPD with bronchospasm Acute renal failure - worsening Pleural effusion GI bleeding Anemia - multifactorial, now worse Covid 19 PNA Hypokalemia Dehydration/hypernatremia worsened Hypertension/HHD with labile BP - now stable range. Vent support Advance beta yves and start IV cardizem. PRBC transfusion for hb below 7gm/dl Monitor acid/base parameters. Antimicrobials Lovenox added for cardioembolic prophyl Continued clinical research monitor Potassium and free water suppl in place. Agree with DNR Jerome Meek MD Jan 13, 2020 17:13
[2020-01-13] MEDS: dilTIAZem HCL 125 MG in NS 100 ML IVPB SCH (18:00)
--- NOTE | 2020-01-13 18:00 | NUR ---
NURSE NOTES: Medications administered per order. Tolerated well. BS 136 noted. No coverage per protocol. Will closely monitor the patient. Will continue plan of care.
--- NOTE | 2020-01-13 19:20 | NUR ---
NURSE HAND-OFF REPORT: Important Events on Shift: Afib w/ RVR on Diltiazem drip, Fever Patient Status: Stable, DNR Diet: Vital AF @ 20mL/hr now Goal of 60mL/hr Pending Orders: Thoracentesis to be done 01/14/2020 Pending Results/Labs: N Pending notification: N Latest Vital Signs: Temperature 100.3 , Pulse 120 , B/P 135 /73 , Respiratory Rate 25 , O2 SAT 99 , Mechanical Ventilator, O2 Flow Rate . Vital Sign Comment: Stable EKG Rhythm: Atrial Fibrillation Rhythm change?: N MD Notified?: N -MD Gaviota UNDERWOOD Response: Latest Abreu Fall Score: 75 Fall Risk: High Risk Safety Measures: Call light Within Reach, Bed Alarm Zone 1, Side Rails Side Rails x3, Bed position Low and Locked. Fall Precautions: Yellow Socks Yellow Gown Door Sign Patient Fall Education Report given to NOEL Palumbo. The patient is stable at this time. Endorsed plan of care.
--- NOTE | 2020-01-13 19:21 | NUR ---
NURSE NOTES: Patient received from NOEL Daniels. patient restless with shiley 8 trach on ventilator AC 18 TV600 FiO2 PEEP 5. BP135/75 HR120 Afib on monitor. left upper arm PICC running Cardizem 2.5ml/hr. gtube running vital AF @20ml/hr due to patient agitation and risk for aspiration. Lockett catheter draining light doretha urine. ice packs applied. skin hot dry with right knee/martínez open dry hematoma dressing clean and intact, left knee and left upper arm ecchymosis noted. patient repositioned and oral care provided.
[2020-01-13] MEDS: Dyna-Hex 2% Top Sol 2oz TOPIC SCH (20:20)
[2020-01-13] MEDS: Miralax 17gm pkt NG SCH (20:20)
--- NOTE | 2020-01-13 22:00 | NUR ---
NURSE NOTES: patient calm after prn Thorazine and versed administered with Shawna 8 trach on ventilator AC 18 TV600 FiO2 PEEP 5. BP121/69 HR124 Afib on monitor, temp 101.0F axillary prn Tylenol administered, ice packs applied. left upper arm PICC running Cardizem 5ml/hr. gtube running vital AF @20ml/hr due to patient agitation and risk for aspiration. Lockett catheter draining light doretha urine, urinalysis collected. patient repositioned and oral care provided.
[2020-01-14] VITALS (46 sets, daily range): BP systolic 83–139; BP diastolic 57–89
--- NOTE | 2020-01-14 | NUR ---
NURSE NOTES: patient calm with Shiley 8 trach on ventilator AC 18 TV600 FiO2 PEEP 5. BP129/86 HR125 Afib on monitor, temp 100.9F axillary after prn Tylenol administered and ice packs applied. left upper arm PICC running Cardizem 5ml/hr. gtube running vital AF @20ml/hr due to patient agitation and risk for aspiration. Lockett catheter draining light doretha urine, sputum culture collected. patient repositioned and oral care provided.
[2020-01-14] MEDS: NovoLOG Insulin Flexpen SUBQ SCH ×4 (00:20→17:52)
[2020-01-14] MEDS: Metoclopramide 10mg/2ml Inj IVP SCH ×4 (01:51→22:01)
[2020-01-14] MEDS: Acetaminophen 650mg/20.3ml GT PRN (01:52)
--- NOTE | 2020-01-14 02:00 | NUR ---
NURSE NOTES: patient calm with Shiley 8 trach on ventilator AC 18 TV600 FiO2 PEEP 5. BP129/76 HR 109 Afib on monitor, temp 100.9F prn Tylenol administered and ice packs applied. left upper arm PICC running Cardizem 5ml/hr. gtube running vital AF @20ml/hr. Lockett catheter draining light doretha urine. patient repositioned and oral care provided.
[2020-01-14 02:12] LABS: APPEARANCE,URINE CLEAR; BILIRUBIN, URINE NEGATIVE (NEGATIVE); GLUCOSE, URINE (UA) NEGATIVE (NEGATIVE); KETONES,URINE NEGATIVE (NEGATIVE); LEUKOCYTE ESTERASE ,URINE NEGATIVE (NEGATIVE); NITRITE,URINE NEGATIVE (NEGATIVE); PH,URINE 7 (4.5-8.0); PROTEIN,URINE NEGATIVE (NEGATIVE); UROBILINOGEN,URINE 8 MG/DL (0.0-1.0)
[2020-01-14 02:26] LABS: COLOR,URINE YELLOW
--- NOTE | 2020-01-14 04:00 | NUR ---
NURSE NOTES: patient restless with Shiley 8 trach on ventilator AC 18 TV600 FiO2 PEEP 5. BP124/ HR111 Afib on monitor, temp 100.5F after prn Tylenol administered and ice packs applied. left upper arm PICC running Cardizem 5ml/hr. gtube running vital AF @20ml/hr. Lockett catheter draining light doretha urine. patient had loose brown stool, patient given CHG bath, repositioned and oral care provided.
[2020-01-14] MEDS: Midazolam 2mg/2ml Inj IVP PRN (04:37)
[2020-01-14] MEDS: metroNIDAZOLE 500mg tab ORAL SCH ×3 (05:10→22:00)
[2020-01-14] MEDS: Metoprolol Tartrate 50mg tab NG SCH ×3 (05:11→17:09)
--- NOTE | 2020-01-14 06:00 | NUR ---
NURSE NOTES: patient restless with Shiley 8 trach on ventilator AC 18 TV600 FiO2 PEEP 5. BP113/69 HR91 Afib on monitor. left upper arm PICC running Cardizem 5ml/hr. gtube running vital AF @20ml/hr. Lockett catheter draining light doretha urine. skin hot dry with right knee/martínez open dry hematoma dressing clean and intact, left knee and left upper arm ecchymosis noted. patient repositioned and oral care provided.
--- NOTE | 2020-01-14 07:02 | NUR ---
NURSE HAND-OFF REPORT: Latest Vital Signs: Temperature 100.5 , Pulse 95 , B/P 113 /69 , Respiratory Rate 18 , O2 SAT 100 , Mechanical Ventilator, O2 Flow Rate . Vital Sign Comment: WNL EKG Rhythm: Atrial Fibrillation Rhythm change?: N Notified?: N -MD Gaviota UNDERWOOD Response: Latest Abreu Fall Score: 75 Fall Risk: High Risk Safety Measures: Call light Within Reach, Bed Alarm Zone 1, Side Rails Side Rails x3, Bed position Low and Locked. Fall Precautions: Yellow Socks Yellow Gown Door Sign Patient Fall Education Report given to NOEL Thompson.
[2020-01-14 07:17] LABS: HEMATOCRIT 22.2 % (37.0-47.0); MEAN CORPUSCULAR VOLUME 94 FL (80-99); PLATELET COUNT 106 K/UL (150-450); RED BLOOD COUNT 2.37 M/UL (4.20-5.40); RED CELL DISTRIBUTION WIDTH 21.2 % (11.6-14.8)
--- NOTE | 2020-01-14 07:30 | NUR ---
NURSE NOTES: Pt received from NOEL Loera. Pt is awake in bed, opens eyes spontaneously and makes eye contact when called by name but unable to follow simple commands; appears anxious; pupils are equal and round 3 mm bilaterally with sluggish rxn to light. 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 radial and dorsalis pedis pulses 3+. 3+ pitting edema noted to BLE and 1+ to both hands. Pt is mechanically ventilated to [facility] with following settings: AC 18 TV 600 FiO2 40% Peep 5. Lung lobes diminished upon auscultation. Abd is round, soft, and non-tender with active bowel sounds to all quadrants. Pt has a GT running Vital at 20 cc/hr. No residuals noted. Will increase TF rate to goal. F/C noted draining light doretha, clear urine. Skin alterations noted. Pt on JOSE DANIEL mattress. Pt has a MARBELLA PICC with dry and intact dressing running cardizem gtt at 5 cc/hr. 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 Bed in lowest position, alarm on, side rails up x 2; Call light within reach. Will continue to monitor.
[2020-01-14 07:38] LABS: CALCIUM 8.8 MG/DL (8.5-10.1); CREATININE 2.2 MG/DL (0.55-1.30); POTASSIUM 3.8 MMOL/L (3.5-5.1)
[2020-01-14 07:51] LABS: WHITE BLOOD COUNT 1.9 K/UL (4.8-10.8)
[2020-01-14 07:52] LABS: HEMOGLOBIN 6.9 G/DL (12.0-16.0)
--- NOTE | 2020-01-14 08:00 | NUR ---
NURSE NOTES: Pt repositioned; oral care provided. Axillary temp noted 100.4 F. Ice packs applied to axilla.
--- NOTE | 2020-01-14 08:34 | General Progress Note ---
Subjective ROS Limited/Unobtainable: No Allergies: Coded Allergies: ERYTHROMYCIN BASE (Verified Allergy, Severe, 12/12/19) HALOPERIDOL (Verified Allergy, Unknown, 12/12/19) VANCOMYCIN (Unverified Adverse Reaction, Intermediate, Shortness of Breath, 12/12/19) Objective Last 24 Hour Vital Signs Date Time Temp Pulse Resp B/P (MAP) Pulse Ox O2 Delivery O2 Flow Rate FiO2 01/14/20 08:00 40 01/14/20 07:00 95 18 113/69 (84) 100 01/14/20 06:00 100 18 112/58 (76) 100 01/14/20 05:11 110 110/67 01/14/20 05:00 107 24 110/62 (78) 95 01/14/20 04:00 40 01/14/20 04:00 Mechanical Ventilator 01/14/20 04:00 100.5 111 21 124/75 (91) 99 01/14/20 04:00 107 01/14/20 03:30 115 18 40 01/14/20 03:00 108 21 129/83 (98) 98 01/14/20 02:22 100.5 01/14/20 02:00 109 19 129/76 (93) 100 01/14/20 01:00 102 18 116/75 (89) 99 01/14/20 00:00 Mechanical Ventilator 01/14/20 00:00 100.9 125 21 129/86 (100) 97 01/14/20 00:00 113 01/14/20 00:00 40 01/13/20 23:48 123 126/78 01/13/20 23:00 118 18 119/55 (76) 98 01/13/20 22:46 108 18 40 01/13/20 22:00 124 21 121/69 (86) 98 01/13/20 21:00 Mechanical Ventilator 01/13/20 21:00 124 29 138/76 (96) 98 01/13/20 20:52 101.0 01/13/20 20:00 40 01/13/20 20:00 128 01/13/20 20:00 101.0 132 26 139/76 (97) 100 01/13/20 19:30 143 26 40 01/13/20 19:00 120 25 135/73 (93) 99 01/13/20 18:30 108 20 120/79 (93) 100 01/13/20 18:00 118 24 128/79 (95) 98 01/13/20 18:00 110 138/90 01/13/20 17:20 150 149/66 01/13/20 17:18 150 146/99 01/13/20 17:00 122 24 146/99 (115) 99 01/13/20 16:00 Mechanical Ventilator 01/13/20 16:00 122 21 130/72 (91) 97 01/13/20 16:00 40 01/13/20 16:00 100.3 108 18 130/72 (91) 100 01/13/20 16:00 122 01/13/20 15:30 129 24 40 01/13/20 15:00 109 20 116/83 (94) 100 01/13/20 14:08 100.5 01/13/20 14:00 110 22 119/78 (92) 99 01/13/20 13:00 117 24 124/74 (91) 99 01/13/20 13:00 117 24 124/74 (91) 99 01/13/20 12:41 98 01/13/20 12:40 40 01/13/20 12:32 138 138/65 01/13/20 12:06 130 25 01/13/20 12:00 133 32 138/58 (84) 97 01/13/20 12:00 101.1 133 32 138/58 (84) 97 01/13/20 12:00 Mechanical Ventilator 01/13/20 12:00 40 01/13/20 12:00 139 01/13/20 12:00 Mechanical Ventilator 01/13/20 11:30 132 26 40 01/13/20 11:00 118 22 123/84 (97) 100 01/13/20 10:00 121 21 113/70 (84) 98 01/13/20 10:00 121 21 113/70 (84) 98 01/13/20 09:00 159 23 155/96 (115) 98 Intake and Output 01/13/20 01/14/20 19:00 07:00 Intake Total 492.5 ml 767.5 ml Output Total 600 ml 880 ml Balance -107.5 ml -112.5 ml Free Water 150 ml 120 ml IV Total 102.5 ml 407.5 ml Tube Feeding 240 ml 240 ml Output Urine Total 600 ml 880 ml # Bowel Movements 1 Laboratory Tests 01/13/20 12:42: POC Whole Blood Glucose [Pending] 01/13/20 22:30: Urine Color Yellow, Urine Appearance Clear, Urine pH 7, Urine Specific Lydia 1.005, Urine Protein Negative, Urine Glucose (UA) Negative, Urine Ketones Negative, Urine Blood Negative, Urine Nitrite Negative, Urine Bilirubin Negative, Urine Urobilinogen 8H, Urine Leukocyte Esterase Negative 01/14/20 05:15: POC Whole Blood Glucose [Pending] 01/14/20 06:46: White Blood Count 1.9*L, Red Blood Count 2.37L, Hemoglobin 6.9*L, Hematocrit 22.2L, Mean Corpuscular Volume 94, Mean Corpuscular Hemoglobin 29.2, Mean Corpuscular Hemoglobin Concent 31.2L, Red Cell Distribution Width 21.2H, Platelet Count 106L, Mean Platelet Volume 7.1, Neutrophils (%) (Auto) , Lymphocytes (%) (Auto) , Monocytes (%) (Auto) , Eosinophils (%) (Auto) , Basophils (%) (Auto) , Neutrophils % (Manual) [Pending], Lymphocytes % (Manual) [Pending], Platelet Estimate [Pending], Platelet Morphology [Pending], Sodium Level 154H, Potassium Level 3.8, Chloride Level 120H, Carbon Dioxide Level 27, Anion Gap 7, Blood Urea Nitrogen 44H, Creatinine 2.2H, Estimat Glomerular Filtration Rate 22.3, Glucose Level 118H, Calcium Level 8.8, Magnesium Level 2.8H Height (Feet): 5 Height (Inches): 6.00 Weight (Pounds): 343 General Appearance: no apparent distress EENT: normal ENT inspection Neck: supple Cardiovascular: normal rate Respiratory/Chest: decreased breath sounds Abdomen: normal bowel sounds, non tender, soft Extremities: non-tender Assessment/Plan Problem List: (1) CKD (chronic kidney disease) stage 3, GFR 30-59 ml/min ICD Codes: N18.3 - Chronic kidney disease, stage 3 (moderate) SNOMED: 750742617 (2) COPD (chronic obstructive pulmonary disease) ICD Codes: J44.9 - Chronic obstructive pulmonary disease, unspecified SNOMED: 06472813 (3) Smoker ICD Codes: F17.200 - Nicotine dependence, unspecified, uncomplicated SNOMED: 29597931 (4) GERD (gastroesophageal reflux disease) ICD Codes: K21.9 - Gastro-esophageal reflux disease without esophagitis SNOMED: 800004310 (5) Atrial fibrillation with RVR ICD Codes: I48.91 - Unspecified atrial fibrillation SNOMED: 418001576251764 Status: stable Assessment/Plan: pepcid fu H&H>>> transfuse one unit PRBC today monitor labs bowel regimen fu cardiology recs icu care ppi cbc in am s/p Trach and PEG GTF>>> increase as tolerated to the goal rate monitor for residuals Mervin Victoria MD Jan 14, 2020 08:34
[2020-01-14] MEDS: Enoxaparin 60mg Inj SUBQ SCH (09:00)
--- NOTE | 2020-01-14 09:00 | NUR ---
NURSE NOTES: Message left with Dr Dumont with critical lab values (Hgb and WBC - 6.9 and 1.9 respectively). Awaiting call back.
--- NOTE | 2020-01-14 09:15 | NUR ---
NURSE NOTES: Weaning trial initiated per RT. Grover Pt on CPAP 5 PS 8 FiO2 40% at this time.
--- NOTE | 2020-01-14 09:45 | NUR ---
RESPIRATORY NOTES PT placed on SBT @0912 - CPAP 5, PS 8, 40% SBT terminated @45 due to an increse in HR - 130s bpm PT placed back onto previous settings. NOEL Vargas aware. Will continue to monitor.
[2020-01-14] MEDS: Docusate 100mg/10ml Liq NG SCH ×2 (09:46→17:09)
[2020-01-14] MEDS: Minocycline HCl 50mg cap ORAL SCH ×2 (09:46→22:00)
[2020-01-14] MEDS: Pantoprazole Inj IVP SCH ×2 (09:47→21:57)
[2020-01-14] MEDS: Bacitracin Oint UD TOPIC SCH ×2 (10:00→22:21)
--- NOTE | 2020-01-14 10:00 | NUR ---
NURSE NOTES: Pt repositioned. Seen by Dr Ignacio. Labs reviewed. Placed back on AC mode at this time per Grover, RT due to increased HR (130s) and work of breathing.
--- NOTE | 2020-01-14 10:33 | NUR ---
RD ASSESSMENT & RECOMMENDATIONS SEE CARE ACTIVITY FOR COMPLETE ASSESSMENT DAILY ESTIMATED NEEDS: Needs based on Obesity, Cardiac, DM, NATALIE, Critical Care/ 80.5kg abw 22-25kg/IBW (59kg) kcals/kg 5126-8167 total kcals 1-2 g protein/kg 80-161 g total protein 20-25 mL/kg 2279-1606 total fluid mLs NUTRITION DIAGNOSIS: 21) Class III Obesity R/T lifestyle factors? excessive energy intake as evidenced by pt w/ BMI >50, @ 245% IBW. 2) Altered nutrition related lab values R/T diabetes, altered lipid metabolism, cardiac hx, NATALIE as evidenced by A1C of 7.1, elev triglyceride 239-> wnl, elev BNP 4671->2682, elev creat (1.7->4.3 -> 1.8, elev BUN (92 -> 39 trend down), elev K (5.4, 5.2 -> wnl->5.3-> wnl), 3) Swallowing difficulty R/T decreased cognitive fxn, respiratory status as evidenced by s/p NGT insertion (12/17), s/p worsening respiratoy status, Covid-19 positive, orally intubated (12/22), s/p trach placement (01/08), S/p PEG placement. CURRENT TF:Vital 1.2 @60ml/hr ENTERAL NUTRITION RECOMMENDATIONS: Glucerna 1.5 @ 40ml/hr x 24 hrs to provide 960ml, 1440kcal, 79g prot, 729ml free water * S/p PEG placement, initiate Glucerna 1.5 @ 20ml/hr x 4hrs, advance 10ml q 4 hrs as tolerated to goal * HOB over 30 degrees/ water flush per MD ADDITIONAL RECOMMENDATIONS: 1) Calibrated bedscale wt: fluctuating daily wts 2) Monitor renal fxn and lytes: creat stable 1.7-1.8, improved 3) Wound healing: add Nephrovite x 1, Vit C 250mg QD, Armand BID 4) Monitor BGs closely w/ Decadron, now off. 5) Feed at goal w/ hemodynamic stability . .
--- NOTE | 2020-01-14 11:28 | Pulmonolgy Critical Care Note ---
Luz Bowen IT DESKTOP SUPPORT SPECIALIST 01/14/20 1128: Critical Care - Asmt/Plan Assessment/Plan: ASSESSMENT acute hypoxemic hypercapnic resp failure, requiring intubation 12/22 s/p trach 01/08 COVID 19 PNA sepsis fungemia UTI with E coli ESBL UTI VRE possible aspiration PNA - s/p treatment Moderate R pleural effusion COPD Atrial fibrillation with RVR CHF Acute renal failure on CKD Severe anemia dysphagia, s/p PEG 01/08 Thrombocytopenia Status post ground fall Tobacco dependency Morbid obesity probable GARY R knee edema and hematoma, possible cellulitis PLAN OF CARE s/p trach, cont PS trials as tolerated-not tolerated developed tachycardia /A fib with RVR now on Cardizme gtt monitor ABG monitor effusion , CXR 12/13 with mild increase in effusion compare to prior CXR, will fup with imaging s/p steroids IV ( started 12/23) continue for total of 10 days till 01/02 s/p Remdesivir (started 12/24 ), dc 12/30 initial diagnoses with COVID 19 at [facility] 11/29, was not hypoxic and not intubated, was not treated with Remdesivivr , only received empiric abx for PNA DVT prophylaxis with Lovenox on diuresis with Lasix, decreased by Dr. Dumont monitor volumes closely creat remains stable consider d/c diamox afib rate control - now on Cardizem gtt GI prophylaxis with PPI monitor HH with goal to keep Hgb >7 on a/c with Lovenox s/p PEG 01/09, asp precautions, SCX 01/07 + ACB MDR BCX 01/07 NGTD UCX 01/07 NGT stool C dif 01/10 NGT UA 01/12 unremarkable remains febrile s/p Polymyxin , Zyvox and Zosyn -as per ID recs, now on Minocycline or possible cellulitis R leg as well as cefepime and Flagyl severely leukopenic ? due to meds vs ? primary BM disease monitor counts immunofixation screen unremarkable transfuse to keep Hgb > 7 previously evaluated by bioethics -> DNR/DNI status appropriate case discussed and evaluated by supervising physician Critical Care - Objective Last 24 Hour Vital Signs Date Time Temp Pulse Resp B/P (MAP) Pulse Ox O2 Delivery O2 Flow Rate FiO2 01/14/20 09:45 100 01/14/20 08:00 40 01/14/20 07:20 96 19 40 01/14/20 07:00 95 18 113/69 (84) 100 01/14/20 06:00 100 18 112/58 (76) 100 01/14/20 05:11 110 110/67 01/14/20 05:00 107 24 110/62 (78) 95 01/14/20 04:00 40 01/14/20 04:00 Mechanical Ventilator 01/14/20 04:00 100.5 111 21 124/75 (91) 99 01/14/20 04:00 107 01/14/20 03:30 115 18 40 01/14/20 03:00 108 21 129/83 (98) 98 01/14/20 02:22 100.5 01/14/20 02:00 109 19 129/76 (93) 100 01/14/20 01:00 102 18 116/75 (89) 99 01/14/20 00:00 Mechanical Ventilator 01/14/20 00:00 100.9 125 21 129/86 (100) 97 01/14/20 00:00 113 01/14/20 00:00 40 01/13/20 23:48 123 126/78 01/13/20 23:00 118 18 119/55 (76) 98 01/13/20 22:46 108 18 40 01/13/20 22:00 124 21 121/69 (86) 98 01/13/20 21:00 Mechanical Ventilator 01/13/20 21:00 124 29 138/76 (96) 98 01/13/20 20:52 101.0 01/13/20 20:00 40 01/13/20 20:00 128 01/13/20 20:00 101.0 132 26 139/76 (97) 100 01/13/20 19:30 143 26 40 01/13/20 19:00 120 25 135/73 (93) 99 01/13/20 18:30 108 20 120/79 (93) 100 01/13/20 18:00 118 24 128/79 (95) 98 01/13/20 18:00 110 138/90 01/13/20 17:20 150 149/66 01/13/20 17:18 150 146/99 01/13/20 17:00 122 24 146/99 (115) 99 01/13/20 16:00 Mechanical Ventilator 01/13/20 16:00 122 21 130/72 (91) 97 01/13/20 16:00 40 01/13/20 16:00 100.3 108 18 130/72 (91) 100 01/13/20 16:00 122 01/13/20 15:30 129 24 40 01/13/20 15:00 109 20 116/83 (94) 100 01/13/20 14:08 100.5 01/13/20 14:00 110 22 119/78 (92) 99 01/13/20 13:00 117 24 124/74 (91) 99 01/13/20 13:00 117 24 124/74 (91) 99 01/13/20 12:41 98 01/13/20 12:40 40 01/13/20 12:32 138 138/65 01/13/20 12:06 130 25 01/13/20 12:00 133 32 138/58 (84) 97 01/13/20 12:00 101.1 133 32 138/58 (84) 97 01/13/20 12:00 Mechanical Ventilator 01/13/20 12:00 40 01/13/20 12:00 139 01/13/20 12:00 Mechanical Ventilator 01/13/20 11:30 132 26 40 Objective: CONDITION: critical General Appearance: morbidly obese , sedated, generalized anasarca ; on vent AC 600-18-40% PEEP 5 Lines, tubes and drains: LUE PICC new , intact HEENT: normocephalic, atraumatic, anicteric, Neck: trach with Shiley # 8, secretions moderate amount, yellow color, thick consistency Respiratory/Chest: chest wall non-tender, no accessory muscle use, BS overall clear, Cardiovascular/Chest: irregularly irregular - A fib . tachy , distant heart sounds, Abdomen: normal bowel sounds, non tender , obese, soft ; G tube with TF : Lockett Extremities: no calf tenderness, moderate edema - +3 BLE, R knee with large hematoma, edema, Skin Exam: warm/dry, multiple tattoos Neurologic: sedated Musculoskeletal: normal muscle bulk Accucheck: 134 Critical Care - Subjective ROS Limited/Unobtainable: Yes Interval Events: started on weaning but developed significant tachycardia back on AC vent now on Cardizem gtt , febrile severe pancytopenia with WBC 1.9, Hgb 6.9 and PLT 106 Condition: critical IV Access: PICC - LUE intact EKG Rhythm: Atrial Fibrillation - with RVR FI02: 40 Vent Support Breath Rate: 18 Vent Support Mode: AC Vent Tidal Volume: 600 Sputum Amount: Small PEEP: 5.0 PIP: 35 Drips: 5mg/hr Tube Feeding Amount: 20 I&O: Intake and Output 01/13/20 01/14/20 19:00 07:00 Intake Total 492.5 ml 767.5 ml Output Total 600 ml 880 ml Balance -107.5 ml -112.5 ml Free Water 150 ml 120 ml IV Total 102.5 ml 407.5 ml Tube Feeding 240 ml 240 ml Output Urine Total 600 ml 880 ml # Bowel Movements 1 CXR: CXR 01/12 Left upper extremity PICC line terminates in the left brachycephalic vein, unchanged. Mild-moderate vascular congestion, which is mildly increased when compared to January 10, 2020. Moderate left pleural effusion, which has mildly increased when compared to January 10, 2020. No pneumothorax. Cardiomegaly. Calcified aorta. Colt Keen MD 01/14/20 1146: Critical Care - Asmt/Plan Assessment/Plan: Patient seen and examined with IT DESKTOP SUPPORT SPECIALIST and the above formulated assessment and plan. Possiblity pancytopenia from linezolid? Will discuss with ID. Time Spent (Minutes): 40 - cc Luz Bowen IT DESKTOP SUPPORT SPECIALIST Jan 14, 2020 11:28 Colt Keen MD Jan 14, 2020 11:46
[2020-01-14] MEDS ORDERED: Morphine Sulfate 2mg/ml Inj(IV/IM USE ONLY) IVP PRN (12:00)
--- NOTE | 2020-01-14 12:00 | NUR ---
NURSE NOTES: Pt repositioned; oral care provided; pt seen by Dr Keen. plan of care discussed.
--- NOTE | 2020-01-14 12:30 | NUR ---
NURSE NOTES: 12 lead EKG performed.
--- NOTE | 2020-01-14 13:00 | NUR ---
NURSE NOTES: Pt seen by Dr Buckner.
--- NOTE | 2020-01-14 13:42 | NUR ---
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 102.1 HR 134 RR 20 B/P 116/79 WBC 2.3 H/H 7.7/23.9 NA 151 BUN 40 CR 1.7 C REACTIVE 30.4 AC 18 TV 600 FIO2 405 PEEP 5 IS: CEFEPIME IV FLAGYL IV PROTONIX IV ICU STATUS 01/13/2020 SI: RESP FAILURE TRACH/VENT DEPENDENT T. 102.1 HR 134 RR 20 B/P 116/79 IS: CARDIZEM GTT CEFEPIME IV ZYVOX IV PROTONIX IV ICU STATUS 01/14/2020 SI: RESP FAILURE TRACH/VENT DEPENDENT T. 100.5 HR 127 RR 21 B/P 126/71 AC 18 TV 600 FIO2 40% PEEP 5 WBC 1.9 H/H 6.9/22.2 NA 154 BUN 44 CR 2.2 IS: CARDIZEM GTT CEFEPIME IV ZYVOX IV TRANSFUSED PACKED RBC 1 UNIT ICU STATUS
--- NOTE | 2020-01-14 13:45 | NUR ---
NURSE NOTES: PRBC transfusion initiated at this time.
[2020-01-14] MEDS: dilTIAZem HCL 125 MG in NS 100 ML IVPB SCH (13:47)
--- NOTE | 2020-01-14 14:00 | NUR ---
NURSE NOTES: Pt repositioned. No distress noted.
--- NOTE | 2020-01-14 14:11 | NUR ---
INSURANCE CLINICALS AND REVIEWS HAVE BEEN FAXED TO: [facility] PH: NEL FARAH [phone] [employer] CLINICALS: [phone]
--- NOTE | 2020-01-14 14:47 | Surgery Progress Note ---
Surgery Progress Note Subjective Procedure Performed tracheostomy Additional Comments ill appearing agitated no n/v dressings clean trach okay labs noted anemia, wbc low Objective Last 24 Hour Vital Signs Date Time Temp Pulse Resp B/P (MAP) Pulse Ox O2 Delivery O2 Flow Rate FiO2 01/14/20 13:47 90 01/14/20 13:00 117 130/57 01/14/20 12:00 99.7 125 21 126/71 (89) 98 01/14/20 12:00 127 01/14/20 12:00 40 01/14/20 11:10 116 19 40 01/14/20 11:00 122 22 106/83 (91) 98 01/14/20 10:45 126 21 107/81 (90) 99 01/14/20 10:30 127 22 105/80 (88) 98 01/14/20 10:15 128 19 127/76 (93) 97 01/14/20 10:00 40 01/14/20 10:00 114 22 133/74 (93) 99 01/14/20 09:45 100 01/14/20 09:45 128 20 130/76 (94) 99 01/14/20 09:30 124 21 134/77 (96) 99 01/14/20 09:15 115 20 134/80 (98) 99 01/14/20 09:15 40 01/14/20 09:00 110 19 115/67 (83) 100 01/14/20 08:45 102 22 110/65 (80) 100 01/14/20 08:30 101 20 104/61 (75) 100 01/14/20 08:15 105 18 116/64 (81) 100 01/14/20 08:00 40 01/14/20 08:00 103 01/14/20 08:00 100.4 98 18 110/61 (77) 100 01/14/20 07:20 96 19 40 01/14/20 07:00 95 18 113/69 (84) 100 01/14/20 06:00 100 18 112/58 (76) 100 01/14/20 05:11 110 110/67 01/14/20 05:00 107 24 110/62 (78) 95 01/14/20 04:00 40 01/14/20 04:00 Mechanical Ventilator 01/14/20 04:00 100.5 111 21 124/75 (91) 99 01/14/20 04:00 107 01/14/20 03:30 115 18 40 01/14/20 03:00 108 21 129/83 (98) 98 01/14/20 02:22 100.5 01/14/20 02:00 109 19 129/76 (93) 100 01/14/20 01:00 102 18 116/75 (89) 99 01/14/20 00:00 Mechanical Ventilator 01/14/20 00:00 100.9 125 21 129/86 (100) 97 01/14/20 00:00 113 01/14/20 00:00 40 01/13/20 23:48 123 126/78 01/13/20 23:00 118 18 119/55 (76) 98 01/13/20 22:46 108 18 40 01/13/20 22:00 124 21 121/69 (86) 98 01/13/20 21:00 Mechanical Ventilator 01/13/20 21:00 124 29 138/76 (96) 98 01/13/20 20:52 101.0 01/13/20 20:00 40 01/13/20 20:00 128 01/13/20 20:00 101.0 132 26 139/76 (97) 100 01/13/20 19:30 143 26 40 01/13/20 19:00 120 25 135/73 (93) 99 01/13/20 18:30 108 20 120/79 (93) 100 01/13/20 18:00 118 24 128/79 (95) 98 01/13/20 18:00 110 138/90 01/13/20 17:20 150 149/66 01/13/20 17:18 150 146/99 01/13/20 17:00 122 24 146/99 (115) 99 01/13/20 16:00 Mechanical Ventilator 01/13/20 16:00 122 21 130/72 (91) 97 01/13/20 16:00 40 01/13/20 16:00 100.3 108 18 130/72 (91) 100 01/13/20 16:00 122 01/13/20 15:30 129 24 40 01/13/20 15:00 109 20 116/83 (94) 100 I&O Intake and Output 01/13/20 01/14/20 19:00 07:00 Intake Total 492.5 ml 767.5 ml Output Total 600 ml 880 ml Balance -107.5 ml -112.5 ml Free Water 150 ml 120 ml IV Total 102.5 ml 407.5 ml Tube Feeding 240 ml 240 ml Output Urine Total 600 ml 880 ml # Bowel Movements 1 Dressing: other Wound: other Cardiovascular: RSR Respiratory: decreased breath sounds Abdomen: soft, non-tender, present bowel sounds Extremities: no tenderness, no cyanosis Laboratory Tests Test 01/13/20 22:30 01/14/20 05:15 01/14/20 06:46 Urine Color Yellow Urine Appearance Clear Urine pH 7 (4.5-8.0) Urine Specific [place] 1.005 (1.005-1.035) Urine Protein Negative (NEGATIVE) Urine Glucose (UA) Negative (NEGATIVE) Urine Ketones Negative (NEGATIVE) Urine Blood Negative (NEGATIVE) Urine Nitrite Negative (NEGATIVE) Urine Bilirubin Negative (NEGATIVE) Urine Urobilinogen 8 MG/DL (0.0-1.0) H Urine Leukocyte Esterase Negative (NEGATIVE) POC Whole Blood Glucose Pending White Blood Count 1.9 K/UL (4.8-10.8) *L Red Blood Count 2.37 M/UL (4.20-5.40) L Hemoglobin 6.9 G/DL (12.0-16.0) *L Hematocrit 22.2 % (37.0-47.0) L Mean Corpuscular Volume 94 FL (80-99) Mean Corpuscular Hemoglobin 29.2 PG (27.0-31.0) Mean Corpuscular Hemoglobin Concent 31.2 G/DL (32.0-36.0) L Red Cell Distribution Width 21.2 % (11.6-14.8) H Platelet Count 106 K/UL (150-450) L Mean Platelet Volume 7.1 FL (6.5-10.1) Neutrophils (%) (Auto) % (45.0-75.0) Lymphocytes (%) (Auto) % (20.0-45.0) Monocytes (%) (Auto) % (1.0-10.0) Eosinophils (%) (Auto) % (0.0-3.0) Basophils (%) (Auto) % (0.0-2.0) Differential Total Cells Counted 100 Neutrophils % (Manual) 60 % (45-75) Lymphocytes % (Manual) 30 % (20-45) Monocytes % (Manual) 6 % (1-10) Eosinophils % (Manual) 1 % (0-3) Basophils % (Manual) 1 % (0-2) Band Neutrophils 2 % (0-8) Nucleated Red Blood Cells 2 /100 WBC Platelet Estimate Decreased L Platelet Morphology Normal Hypochromasia 4+ Anisocytosis 3+ Sodium Level 154 MMOL/L (136-145) H Potassium Level 3.8 MMOL/L (3.5-5.1) Chloride Level 120 MMOL/L (98-107) H Carbon Dioxide Level 27 MMOL/L (21-32) Anion Gap 7 mmol/L (5-15) Blood Urea Nitrogen 44 mg/dL (7-18) H Creatinine 2.2 MG/DL (0.55-1.30) H Estimat Glomerular Filtration Rate 22.3 mL/min (>60) Glucose Level 118 MG/DL (74-106) H Calcium Level 8.8 MG/DL (8.5-10.1) Magnesium Level 2.8 MG/DL (1.8-2.4) H Plan Problems: (1) Urinary tract infection (2) CHF exacerbation (3) History of schizophrenia (4) Atrial fibrillation with RVR (5) Schizophrenia (6) GERD (gastroesophageal reflux disease) (7) Smoker (8) Atrial fibrillation with rapid ventricular response (9) Lymphadema (10) COPD (chronic obstructive pulmonary disease) (11) CKD (chronic kidney disease) stage 3, GFR 30-59 ml/min (12) NATALIE (acute kidney injury) (13) Dehydration (14) Dysphagia (15) UTI (urinary tract infection) (16) UGI bleed (17) ESBL (extended spectrum beta-lactamase) producing bacteria infection (18) Constipation (19) Lactic acidosis (20) Tinea cruris (21) Onychomycosis (22) Emesis (23) Essential hypertension (24) Anemia (25) Cough (26) Depression (27) Depression (28) Edema (29) Rash (30) Opiate dependence (31) Opiate dependence (32) Opiate dependence (33) Opiate dependence (34) Pyelonephritis (35) Sepsis (36) UTI (urinary tract infection) (37) Nausea and vomiting (38) Abdominal pain Assessment & Plan: [age]-year-old female obese white abdominal pain deep tissue injury identified limited mobility on HD. KUB noted tube in place continue meds feeds Does not seem obstructed We will monitor lines noted. plan change resume tube feeds labs okay FINDINGS: Lower thorax: Obscuration of the left costophrenic angle suggestive of pleural effusion. Intraperitoneal space: No free air. Gastrointestinal tract: Unremarkable. No dilation. Bones/joints: Unremarkable. Tubes, lines and devices: The nasogastric tube has the tip at the mid inferior aspect of the gastric body. Other findings: Nonspecific gas pattern. Single frontal view of the abdomen demonstrates tip of the enteric tube and distal side-port projecting over the stomach. Gas is identified within the nondistended large bowel. There is a paucity of small bowel gas seen. Partially visualized left pleural effusion. No other significant interval change. (39) Chest pain (40) Chest pain (41) Nausea (42) Obesity (43) Chronic ulcer of leg (44) Chronic ulcer of leg (45) Chronic ulcer of leg (46) ACS (acute coronary syndrome) (47) Acute chest pain (48) Encounter for dressing change or suture removal (49) Left leg cellulitis (50) Acute encephalopathy (51) Encounter for wound re-check (52) Intractable nausea and vomiting (53) Infection due to ESBL-producing Escherichia coli (54) Chronic venous stasis (55) Change of dressing (56) Change of dressing (57) Change of dressing (58) Change of dressing (59) Change of dressing (60) Change of dressing (61) Change of dressing (62) Change of dressing (63) ESBL urine (64) Lymphadema (65) Lymphedema (66) Lymphedema (67) Lymphedema (68) Lymphedema (69) Lymphedema (70) Lymphedema (71) Lymphedema (72) Lymphedema (73) Open wound of foot (74) Open wound of foot (75) cellulitis (76) chronic lymphedema (77) chronic lymphedema (78) chronic lymphedema (79) hypertension uncontrolled (80) hypertension uncontrolled (81) Intertrigo (82) Sciatica (83) Cellulitis (84) Schizophrenia (85) Chronic bronchitis (86) HTN (hypertension) (87) Venous stasis ulcers (88) Medication refill (89) Chest pain, atypical (90) BMI 45.0-49.9, adult (91) Lymphedema of both lower extremities (92) hypertension uncontrolled (93) hypertension uncontrolled (94) hypertension uncontrolled (95) tenia corpus (96) Deep tissue injury Assessment & Plan: Morbidly obese pt whom presented on admission with Pressure injuries, Edemae bilat lower extremities eschar to dorsal aspects of metatarsals. Pt is very demanding of staff and can be resistive to repositioning. DTPI noted to L Sacrum(L)5.5cm x (W)2.5cm. Base of Pressure Injury is Maroon and indurated with surrounding non-blanchable erythema DTPI R Sacrum(L)5.5cm x (W)2.3cm. Base of Pressure Injury is maroon with purpuric center that is fluctuant. Pt complained of tenderness when minimally palpated. Bilat lower extremities are edematous . Dry eschar noted to nail matrix and tip of L 1st metatarsal, Dorsal L 2nd metatarsal, R 2nd and R 4th metatarsals. Both heels are boggy with non-Blanchable erythema. blisters forming on Right lower extremity anterior tibia. not infected cellulitis / edema on b/l le stable cont abx Tx.Plan: Apply Moisture Barrier Paste to Sacrum R and L gluteal cheeks. Cover with Optifoam drsgs. Change every 3 days and prn. Apply Betadine to dry eschar metatarsals both feet Daily. Apply Cavilon Skin Barrier to both heels. Cover each heel with Optifoam drsgs. Change every 7days and prn. Reposition at least every 2hours or as tolerated. Off-load heels with pillow. right leg hematoma stable critically ill and edema on right leg has compromised dermis over the hematoma. will likely need debridement once improved (97) COVID-19 Assessment & Plan: ++ on vent weaning abx as per ID (98) Respiratory failure Assessment & Plan: not able to wean safely will plan for trach case discussed with medical team, pulm, icu. recommended to trach given medical condition. medically indicated and recommended. s/p trach 01/08 s/p trach more comfortable less agitated on vent weaning (99) Pneumonia Juan Manuel Buckner Jan 14, 2020 14:47
--- NOTE | 2020-01-14 16:00 | NUR ---
NURSE NOTES: Pt repositioned; oral care provided; pt remains afebrile at this time. Will continue to monitor.
--- NOTE | 2020-01-14 16:30 | General Progress Note ---
Subjective ROS Limited/Unobtainable: Yes Allergies: Coded Allergies: ERYTHROMYCIN BASE (Verified Allergy, Severe, 12/12/19) HALOPERIDOL (Verified Allergy, Unknown, 12/12/19) VANCOMYCIN (Unverified Adverse Reaction, Intermediate, Shortness of Breath, 12/12/19) Objective Last 24 Hour Vital Signs Date Time Temp Pulse Resp B/P (MAP) Pulse Ox O2 Delivery O2 Flow Rate FiO2 01/14/20 15:00 103 19 118/62 (80) 01/14/20 14:30 102 22 122/77 (92) 01/14/20 14:00 96 18 108/58 (75) 01/14/20 13:47 90 01/14/20 13:30 97 19 105/59 (74) 01/14/20 13:00 117 130/57 01/14/20 13:00 128 24 130/57 (81) 01/14/20 12:30 115 18 119/72 (88) 01/14/20 12:00 99.7 125 21 126/71 (89) 98 01/14/20 12:00 127 01/14/20 12:00 40 01/14/20 11:30 129 23 129/75 (93) 96 01/14/20 11:10 116 19 40 01/14/20 11:00 122 22 106/83 (91) 98 01/14/20 10:45 126 21 107/81 (90) 99 01/14/20 10:30 127 22 105/80 (88) 98 01/14/20 10:15 128 19 127/76 (93) 97 01/14/20 10:00 40 01/14/20 10:00 114 22 133/74 (93) 99 01/14/20 09:45 100 01/14/20 09:45 128 20 130/76 (94) 99 01/14/20 09:30 124 21 134/77 (96) 99 01/14/20 09:15 115 20 134/80 (98) 99 01/14/20 09:15 40 01/14/20 09:00 110 19 115/67 (83) 100 01/14/20 08:45 102 22 110/65 (80) 100 01/14/20 08:30 101 20 104/61 (75) 100 01/14/20 08:15 105 18 116/64 (81) 100 01/14/20 08:00 40 01/14/20 08:00 103 01/14/20 08:00 100.4 98 18 110/61 (77) 100 01/14/20 07:20 96 19 40 01/14/20 07:00 95 18 113/69 (84) 100 01/14/20 06:00 100 18 112/58 (76) 100 01/14/20 05:11 110 110/67 01/14/20 05:00 107 24 110/62 (78) 95 01/14/20 04:00 40 01/14/20 04:00 Mechanical Ventilator 01/14/20 04:00 100.5 111 21 124/75 (91) 99 01/14/20 04:00 107 01/14/20 03:30 115 18 40 01/14/20 03:00 108 21 129/83 (98) 98 01/14/20 02:22 100.5 01/14/20 02:00 109 19 129/76 (93) 100 01/14/20 01:00 102 18 116/75 (89) 99 01/14/20 00:00 Mechanical Ventilator 01/14/20 00:00 100.9 125 21 129/86 (100) 97 01/14/20 00:00 113 01/14/20 00:00 40 01/13/20 23:48 123 126/78 01/13/20 23:00 118 18 119/55 (76) 98 01/13/20 22:46 108 18 40 01/13/20 22:00 124 21 121/69 (86) 98 01/13/20 21:00 Mechanical Ventilator 01/13/20 21:00 124 29 138/76 (96) 98 01/13/20 20:52 101.0 01/13/20 20:00 40 01/13/20 20:00 128 01/13/20 20:00 101.0 132 26 139/76 (97) 100 01/13/20 19:30 143 26 40 01/13/20 19:00 120 25 135/73 (93) 99 01/13/20 18:30 108 20 120/79 (93) 100 01/13/20 18:00 118 24 128/79 (95) 98 01/13/20 18:00 110 138/90 01/13/20 17:20 150 149/66 01/13/20 17:18 150 146/99 01/13/20 17:00 122 24 146/99 (115) 99 Intake and Output 01/13/20 01/14/20 19:00 07:00 Intake Total 492.5 ml 767.5 ml Output Total 600 ml 880 ml Balance -107.5 ml -112.5 ml Free Water 150 ml 120 ml IV Total 102.5 ml 407.5 ml Tube Feeding 240 ml 240 ml Output Urine Total 600 ml 880 ml # Bowel Movements 1 Laboratory Tests 01/13/20 22:30: Urine Color Yellow, Urine Appearance Clear, Urine pH 7, Urine Specific Cameron 1.005, Urine Protein Negative, Urine Glucose (UA) Negative, Urine Ketones Negative, Urine Blood Negative, Urine Nitrite Negative, Urine Bilirubin Negative, Urine Urobilinogen 8H, Urine Leukocyte Esterase Negative 01/14/20 05:15: POC Whole Blood Glucose [Pending] 01/14/20 06:46: White Blood Count 1.9*L, Red Blood Count 2.37L, Hemoglobin 6.9*L, Hematocrit 22.2L, Mean Corpuscular Volume 94, Mean Corpuscular Hemoglobin 29.2, Mean Corpuscular Hemoglobin Concent 31.2L, Red Cell Distribution Width 21.2H, Platelet Count 106L, Mean Platelet Volume 7.1, Neutrophils (%) (Auto) , Lymphocytes (%) (Auto) , Monocytes (%) (Auto) , Eosinophils (%) (Auto) , Basophils (%) (Auto) , Differential Total Cells Counted 100, Neutrophils % ( Manual) 60, Lymphocytes % (Manual) 30, Monocytes % (Manual) 6, Eosinophils % (Manual) 1, Basophils % (Manual) 1, Band Neutrophils 2, Nucleated Red Blood Cells 2, Platelet Estimate DecreasedL, Platelet Morphology Normal, Hypochromasia 4+, Anisocytosis 3+, Sodium Level 154H, Potassium Level 3.8, Chloride Level 120H, Carbon Dioxide Level 27, Anion Gap 7, Blood Urea Nitrogen 44H, Creatinine 2.2H, Estimat Glomerular Filtration Rate 22.3, Glucose Level 118H, Calcium Level 8.8, Magnesium Level 2.8H Height (Feet): 5 Height (Inches): 6.00 Weight (Pounds): 343 General Appearance: morbidly obese, other - sedated vent Cardiovascular: regularly irregular Respiratory/Chest: rhonchi - bilaterally Abdomen: soft Edema: moderate edema Neurologic: unresponsive Assessment/Plan Problem List: (1) Schizophrenia ICD Codes: F20.9 - Schizophrenia, unspecified SNOMED: 06174053 (2) GERD (gastroesophageal reflux disease) ICD Codes: K21.9 - Gastro-esophageal reflux disease without esophagitis SNOMED: 270352188 (3) Lymphadema (4) Smoker ICD Codes: F17.200 - Nicotine dependence, unspecified, uncomplicated SNOMED: 51490869 (5) Atrial fibrillation with rapid ventricular response ICD Codes: I48.91 - Unspecified atrial fibrillation SNOMED: 196748176479824 (6) CKD (chronic kidney disease) stage 3, GFR 30-59 ml/min ICD Codes: N18.3 - Chronic kidney disease, stage 3 (moderate) SNOMED: 156833895 (7) NATALIE (acute kidney injury) ICD Codes: N17.9 - Acute kidney failure, unspecified SNOMED: 5822789, 52026493 (8) COPD (chronic obstructive pulmonary disease) ICD Codes: J44.9 - Chronic obstructive pulmonary disease, unspecified SNOMED: 25982259 (9) UGI bleed ICD Codes: K92.2 - Gastrointestinal hemorrhage, unspecified SNOMED: 00419077 (10) Dysphagia ICD Codes: R13.10 - Dysphagia, unspecified SNOMED: 96376347, 263062848 (11) UTI (urinary tract infection) ICD Codes: N39.0 - Urinary tract infection, site not specified SNOMED: 59730814 (12) ESBL (extended spectrum beta-lactamase) producing bacteria infection ICD Codes: A49.9 - Bacterial infection, unspecified; Z16.12 - Extended spectrum beta lactamase (ESBL) resistance SNOMED: 314329901 (13) Dehydration ICD Codes: E86.0 - Dehydration SNOMED: 13814360 (14) CHF exacerbation ICD Codes: I50.9 - Heart failure, unspecified SNOMED: 126696349, 58777720868008 (15) Acute respiratory failure ICD Codes: J96.00 - Acute respiratory failure, unspecified whether with hypoxia or hypercapnia SNOMED: 02715591 (16) COVID-19 ICD Codes: U07.1 - COVID-19 SNOMED: 355598750 (17) Pneumonia ICD Codes: J18.9 - Pneumonia, unspecified organism SNOMED: 601836985 Qualifiers: (18) Hematoma of lower leg ICD Codes: S80.10XA - Contusion of unspecified lower leg, initial encounter SNOMED: 665733564 (19) CKD (chronic kidney disease) stage 3, GFR 30-59 ml/min ICD Codes: N18.3 - Chronic kidney disease, stage 3 (moderate) SNOMED: 495955201 (20) Pancytopenia ICD Codes: D61.818 - Other pancytopenia SNOMED: 748322085 Status: stable Assessment/Plan: resp distress, icu, trach, vent, natalie on ckd,,now stable, I/O reviewed, hematoma RLE stop eliquis , lovenox now iv protonix, rx esbl and + vre uti,g+ cocci , remains high risk, d/w psych, ID, cardiology, chf and on lasix ,covid neg prior now +, grave prognosis, fungemia treated with micafungin likely will be unable to wean for a long time, agitated when tried to wean and had apnea 01/01, cpap trial 01/02 + had distress/tachycardia , ,all lab and orders reviewed , no active bleeding , low Hb to transfuse 01/08 preop, done, , reculture, d/w dr curran needs trach, done,Needs gastrostomy unable to sign, done Dr Curran thinks that she might be able to wean gradually after trach placed, febrile again and infiltrates, trach scheduled 01/08, done, pancytopenia stable may be from sepsis or meds(remdesivir, chlorpromazine, micafungin, linezolid), posssible primary BM disease, to observe ,immunofixation ordered,negative, hypernatremia and free water gt,D5w iv stop lasix titrate sedatives , some distress earlier now resp status stable icu time 35 min Benjamin Dumont MD Jan 14, 2020 16:30
[2020-01-14] MEDS: dilTIAZem Premix 125mg/125ml 125 ML IVPB SCH (18:00)
--- NOTE | 2020-01-14 18:00 | NUR ---
NURSE NOTES: Pt repositioned and cleaned. Dr Meek assessing pt at bedside. Care of rodriguez discussed.
[2020-01-14] MEDS: LORazepam 1mg tab GT SCH ×2 (18:21→22:13)
--- NOTE | 2020-01-14 19:00 | NUR ---
NURSE NOTES: Dr Powell assessing pt at bedside. Plan of care discussed.
--- NOTE | 2020-01-14 19:15 | NUR ---
NURSE NOTES: Pt received from NOEL Marin. Pt is awake in bed, opens eyes spontaneously and makes eye contact when called by name but unable to follow simple commands; appears anxious; pupils are equal and round 3 mm bilaterally with sluggish rxn to light. Pt noted in Afib to bus driver/monitor. radial and dorsalis pedis pulses 3+. 3+ pitting edema noted to BLE and 1+ to both hands. Pt is mechanically ventilated to [facility] with following settings: AC 18 TV 600 FiO2 40% Peep 5. Lung lobes diminished upon auscultation. Abd is round, soft, and non-tender with active bowel sounds to all quadrants. Pt has a GT running Vital at 60 cc/hr. F/C noted draining light doretha, clear urine. Skin alterations noted. Pt on JOSE DANIEL mattress. Pt has a MARBELLA PICC with
--- NOTE | 2020-01-14 19:30 | NUR ---
NURSE HAND-OFF REPORT: Latest Vital Signs: Temperature 98.7 , Pulse 115 , B/P 100 /76 , Respiratory Rate 18 , O2 SAT 100 , Mechanical Ventilator, FiO2 40%. EKG Rhythm: Atrial Fibrillation Rhythm change?: N MD Notified?: Dr Meek came in to see pt today. MD Response: no new orders received. Latest Abreu Fall Score: 75 Fall Risk: High Risk Safety Measures: Call light Within Reach, Bed Alarm Zone 1, Side Rails Side Rails x3, Bed position Low and Locked. Fall Precautions: Yellow Socks Yellow Gown Door Sign Patient Fall Education Report given to Chava Elkins RN.
--- NOTE | 2020-01-14 19:57 | Infectious Diseases Prog Note ---
Assessment/Plan Assessment/Plan ASSESSMENT AND PLAN: 1. MDR acinetobacter pna - S-minocycline, I-colistin, polymyxin hx esbl e.coli uti/pyelonephritis, sepsis, leukocytosis, fevers mrsa and vre colonization, NATALIE, respiratory distress/failure Fungemia - + yeast in blood - ID still pending hx mrsa pna/acinetobacter pna hx VRE uti covid-19 infection right leg swelling and redness noted, ? cellulitis, ? infected hematoma, ? wound infection - minocycline - day # 5 for acinetobacter pna - cefepime and flagyl added to cover possible wound/hematoma infection - zyvox held for pancytopenia - s/p micafungin - surveillance cultures ordered for fevers - f/u on cultures - s/p remdesivir, on dexamethasone - monitor labs and chest x-ray - ? debridement right leg per surgery when patient stable - d/w RN 2. Chronic kidney failure, acute renal failure. 3. COPD. 4. Pulmonary followup. 5. Renal followup. 6. History of falls. 7. Atrial fibrillation. Cardiology followup. 8. Obesity. 9. Gait disorder. 10. Schizophrenia. 11. Homeless. 12. Allergic to erythromycin, haloperidol, and vancomycin. 13. Social history is negative. 14. Family history is noncontributory. 15. MAR is noted. 16. Case discussed with RN. 17. Continue treatment per Dr. Dumont and consultants. Subjective Constitutional: Reports: fever, other - trach, vent, trivedi, g-tube, no pressors HEENT: Reports: congestion Respiratory: Reports: shortness of breath Cardiovascular: Reports: other - no pressors Gastrointestinal/Abdominal: Denies: nausea, vomiting, diarrhea Genitourinary: Reports: other - + trivedi Neurologic: Reports: other - on vent Psychiatric: Reports: other - NA Skin: Denies: rash Hematologic: Denies: bleeding Musculoskeletal: Reports: other - NA Allergies: Coded Allergies: ERYTHROMYCIN BASE (Verified Allergy, Severe, 12/12/19) HALOPERIDOL (Verified Allergy, Unknown, 12/12/19) VANCOMYCIN (Unverified Adverse Reaction, Intermediate, Shortness of Breath, 12/12/19) Objective Last 24 Hour Vital Signs Date Time Temp Pulse Resp B/P (MAP) Pulse Ox O2 Delivery O2 Flow Rate FiO2 01/14/20 19:26 115 18 40 01/14/20 18:51 106 18 100/76 100 01/14/20 18:45 111 27 100/76 (84) 93 01/14/20 18:30 110 24 115/73 (87) 96 01/14/20 18:21 103 18 124/65 100 01/14/20 18:15 104 16 124/65 (84) 100 01/14/20 18:00 114 25 125/85 (98) 98 01/14/20 17:45 118 22 128/64 (85) 100 01/14/20 17:30 125 22 122/71 (88) 73 01/14/20 17:15 128 22 125/72 (89) 01/14/20 17:09 120 139/89 01/14/20 17:00 123 27 139/89 (106) 01/14/20 16:45 120 19 131/86 (101) 01/14/20 16:30 119 23 115/71 (86) 01/14/20 16:15 118 26 139/80 (99) 97 01/14/20 16:00 112 01/14/20 16:00 98.7 114 24 113/72 (86) 96 01/14/20 16:00 40 01/14/20 15:15 113 18 40 01/14/20 15:00 103 19 118/62 (80) 99 01/14/20 14:30 102 22 122/77 (92) 99 01/14/20 14:00 96 18 108/58 (75) 99 01/14/20 13:47 90 01/14/20 13:30 97 19 105/59 (74) 100 01/14/20 13:00 117 130/57 01/14/20 13:00 128 24 130/57 (81) 98 01/14/20 12:30 115 18 119/72 (88) 99 01/14/20 12:00 99.7 125 21 126/71 (89) 98 01/14/20 12:00 127 01/14/20 12:00 40 01/14/20 11:30 129 23 129/75 (93) 96 01/14/20 11:10 116 19 40 01/14/20 11:00 122 22 106/83 (91) 98 01/14/20 10:45 126 21 107/81 (90) 99 01/14/20 10:30 127 22 105/80 (88) 98 01/14/20 10:15 128 19 127/76 (93) 97 01/14/20 10:00 40 01/14/20 10:00 114 22 133/74 (93) 99 01/14/20 09:45 100 01/14/20 09:45 128 20 130/76 (94) 99 01/14/20 09:30 124 21 134/77 (96) 99 01/14/20 09:15 115 20 134/80 (98) 99 01/14/20 09:15 40 01/14/20 09:00 110 19 115/67 (83) 100 01/14/20 08:45 102 22 110/65 (80) 100 01/14/20 08:30 101 20 104/61 (75) 100 01/14/20 08:15 105 18 116/64 (81) 100 01/14/20 08:00 40 01/14/20 08:00 103 01/14/20 08:00 100.4 98 18 110/61 (77) 100 01/14/20 07:20 96 19 40 01/14/20 07:00 95 18 113/69 (84) 100 01/14/20 06:00 100 18 112/58 (76) 100 01/14/20 05:11 110 110/67 01/14/20 05:00 107 24 110/62 (78) 95 01/14/20 04:00 40 01/14/20 04:00 Mechanical Ventilator 01/14/20 04:00 100.5 111 21 124/75 (91) 99 01/14/20 04:00 107 01/14/20 03:30 115 18 40 01/14/20 03:00 108 21 129/83 (98) 98 01/14/20 02:22 100.5 01/14/20 02:00 109 19 129/76 (93) 100 01/14/20 01:00 102 18 116/75 (89) 99 01/14/20 00:00 Mechanical Ventilator 01/14/20 00:00 100.9 125 21 129/86 (100) 97 01/14/20 00:00 113 01/14/20 00:00 40 01/13/20 23:48 123 126/78 01/13/20 23:00 118 18 119/55 (76) 98 01/13/20 22:46 108 18 40 01/13/20 22:00 124 21 121/69 (86) 98 01/13/20 21:00 Mechanical Ventilator 01/13/20 21:00 124 29 138/76 (96) 98 01/13/20 20:52 101.0 01/13/20 20:00 40 01/13/20 20:00 128 01/13/20 20:00 101.0 132 26 139/76 (97) 100 Height (Feet): 5 Height (Inches): 6.00 Weight (Pounds): 343 General Appearance: no acute distress HEENT: atraumatic, anicteric, no JVD, status post trach Respiratory/Chest: crackles/rales, rhonchi - bilaterally Cardiovascular: regular rhythm, no gallop/murmur, tachycardia Abdomen: normal bowel sounds, soft, non tender, no organomegaly, non distended Genitourinary: other - + trivedi - urine - cloudy Extremities: no cyanosis, other - right leg with hematoma, swelling Skin: no rash Neurologic/Psychiatric: other - weak, trach, vent Lymphatic: no neck adenopathy Musculoskeletal: no effusion Chest x-ray - 11/17/19 - Procedure: XRAY Chest 1v Indication: Shortness of breath Technique: One view of the chest Comparison: 12/17/2019 Findings: The heart is enlarged. There is bilateral interstitial and airspace disease is again demonstrated, probably unchanged allowing for differences in degree of inspiration. Impression: Unchanged, over one day, findings as above. Chest x-ray - 12/21/19 - Procedure: XRAY Chest 1v Indication: Shortness of breath Technique: One view of the chest Comparison: 12/19/2019 Findings: The heart is enlarged. Bilateral extensive infiltrates are again demonstrated, stable to slightly worse allowing for differences in exposure technique. There is suggestion of increasing pleural fluid on the left. Nasogastric tube is again demonstrated. Impression: Stable to worsened bilateral extensive infiltrates, since exam of 2 days prior Increasing left pleural effusion Chest x-ray - 12/23/19 - IMPRESSION: 1. No significant interval change from the prior chest x-ray. 2. Persistent moderate left pleural effusion and mild right pleural effusion. 3. Pulmonary vascular congestion. 4. Persistent opacity in the left lung base, which may represent atelectasis versus pneumonia. Chest x-ray - 12/25/19 - Procedure: XRAY Chest 1v Procedure: XRAY Chest 1v Reason for study: Reason For Exam: SOB Comparison films: 12/24/2019. FINDINGS: The tracheal tube and NG tube remain in place. Vascular prominence and bilateral hazy alveolar densities are unchanged. Cardiomegaly and small effusions also unchanged. The bony thorax appear unremarkable. IMPRESSION: NO SIGNIFICANT CHANGE COMPARED TO PREVIOUS EXAM. 12/26/19 - Procedure: XRAY Chest 1v Procedure: XRAY Chest 1v Reason for study: Reason For Exam: SOB Comparison films: 12/25/2019. FINDINGS: Endotracheal tube and NG tube remain in place. Hazy bilateral alveolar densities are essentially unchanged given the difference in technique. Cardiomegaly and right effusion again noted. The bony thorax appear unremarkable. IMPRESSION: NO SIGNIFICANT CHANGE COMPARED TO PREVIOUS EXAM. Chest x-ray - 12/28/19 - Procedure: XRAY Chest 1v Indication: Reason For Exam: SOB Technique: Single AP view of the chest. Comparison: Chest radiograph dated 12/27/2019 Findings: Exam is again noted to be diagnostically limited due to underpenetration, patient rotation, and exclusion of part of the left hemithorax from the [id number]. Within these limitations: No significant change in appearance of visualized cardiomediastinal silhouette. Unchanged layering right pleural effusion with associated basilar airspace opacities. Likely retrocardiac consolidation, unchanged. No apical pneumothoraces. Unchanged enteric and endotracheal tubes. Unchanged left PICC. Chest x-ray - 12/30/19 - FINDINGS: Distal tip of ET tube is above devika. Distal tip of the enteric tube is in stomach. Stable left arm PICC line with distal tip likely in the left subclavian vein. Cardiac silhouette is within normal limits allowing for portable and rotated technique. Low lung volumes with elevated left hemidiaphragm. Again noted is a moderate right effusion with patchy infiltrates in the right mid to lower lung. Probable retrocardiac infiltrates. IMPRESSION: Little interval change in moderate right effusion and pneumonia/aspiration. Suspected retrocardiac infiltrate. The distal tip of the left arm PICC line is not well seen past the level of the left mid subclavian vein. [place] location is in the cavoatrial junction. Recommend advancement. <MYCVCSECTION> Chest x-ray - 01/04/20 - Procedure: XRAY Chest 1v Indication: Dyspnea Technique: One view of the chest Comparison: 01/02/2020 Findings: Bilateral interstitial and airspace congestion, right pleural effusion, cardiomegaly persists, unchanged. Tube and line positions are unchanged Impression: Unchanged, over one day, findings as above. Chest x-ray - 01/06/20 - IMPRESSION: 1. Endotracheal tube terminates in the region of the lower thoracic trachea, approximately 2.6 cm above the devika. Enteric tube is difficult to visualize distally. 2. Similar opacities predominantly in the mid and lower lungs which may represent combination of pleural effusions and atelectasis versus pneumonia versus edema. Chest x-ray - 01/07/20 - Procedure: XRAY Chest 1v Indication: Shortness of breath Technique: One view of the chest Comparison: 01/06/2020 Findings: Stable satisfactory positions of endotracheal and orogastric tubes. Mild interstitial congestion and hazy ankle opacities are again demonstrated bilaterally. There appears to be a small amount of pleural fluid bilaterally, probably unchanged. Impression: Unchanged, over one day, findings as above. Chest x-ray - 01/10/20 - Procedure: XRAY Chest 1v Indication: There is a breath Technique: One view of the chest Comparison: 01/08/2020 Findings: Interim conversion of endotracheal tube to a tracheostomy, appearing well positioned. Orogastric tube remains. Bilateral interstitial and airspace infiltrates versus edema persists, unchanged. Small bilateral pleural effusions persist, unchanged. Impression: Interim tracheostomy placement. No radiographically evident complication Stable bilateral pleural and parenchymal disease Chest x-ray - 01/13/20 - FINDINGS/IMPRESSION: Midline tracheostomy tube. Left upper extremity PICC line terminates in the left brachycephalic vein, unchanged. Mild-moderate vascular congestion, which is mildly increased when compared to January 10, 2020. Moderate left pleural effusion, which has mildly increased when compared to January 10, 2020. No pneumothorax. Cardiomegaly. Calcified aorta. Microbiology Date/Time Source Procedure Growth Status 01/11/20 04:20 Stool Clostridium difficile Toxin Assay - Final Complete 01/08/20 18:25 Indwelling Cath Urine Culture - Final NO GROWTH AFTER 48 HOURS Complete 01/08/20 18:25 Sputum Induced Gram Stain - Final Complete 01/08/20 18:25 Sputum Culture - Final A.baumanii Complx - Mdr Complete 01/08/20 15:15 Blood Blood Culture - Final NO GROWTH AFTER 5 DAYS Complete 12/12/19 21:00 Rectum - Final NO CARBAPENEM-RESISTANT ENTEROBACTERI... Complete Laboratory Tests Test 01/13/20 22:30 01/14/20 05:15 01/14/20 06:46 Urine Color Yellow Urine Appearance Clear Urine pH 7 (4.5-8.0) Urine Specific [place] 1.005 (1.005-1.035) Urine Protein Negative (NEGATIVE) Urine Glucose (UA) Negative (NEGATIVE) Urine Ketones Negative (NEGATIVE) Urine Blood Negative (NEGATIVE) Urine Nitrite Negative (NEGATIVE) Urine Bilirubin Negative (NEGATIVE) Urine Urobilinogen 8 MG/DL (0.0-1.0) H Urine Leukocyte Esterase Negative (NEGATIVE) POC Whole Blood Glucose Pending White Blood Count 1.9 K/UL (4.8-10.8) *L Red Blood Count 2.37 M/UL (4.20-5.40) L Hemoglobin 6.9 G/DL (12.0-16.0) *L Hematocrit 22.2 % (37.0-47.0) L Mean Corpuscular Volume 94 FL (80-99) Mean Corpuscular Hemoglobin 29.2 PG (27.0-31.0) Mean Corpuscular Hemoglobin Concent 31.2 G/DL (32.0-36.0) L Red Cell Distribution Width 21.2 % (11.6-14.8) H Platelet Count 106 K/UL (150-450) L Mean Platelet Volume 7.1 FL (6.5-10.1) Neutrophils (%) (Auto) % (45.0-75.0) Lymphocytes (%) (Auto) % (20.0-45.0) Monocytes (%) (Auto) % (1.0-10.0) Eosinophils (%) (Auto) % (0.0-3.0) Basophils (%) (Auto) % (0.0-2.0) Differential Total Cells Counted 100 Neutrophils % (Manual) 60 % (45-75) Lymphocytes % (Manual) 30 % (20-45) Monocytes % (Manual) 6 % (1-10) Eosinophils % (Manual) 1 % (0-3) Basophils % (Manual) 1 % (0-2) Band Neutrophils 2 % (0-8) Nucleated Red Blood Cells 2 /100 WBC Platelet Estimate Decreased L Platelet Morphology Normal Hypochromasia 4+ Anisocytosis 3+ Sodium Level 154 MMOL/L (136-145) H Potassium Level 3.8 MMOL/L (3.5-5.1) Chloride Level 120 MMOL/L (98-107) H Carbon Dioxide Level 27 MMOL/L (21-32) Anion Gap 7 mmol/L (5-15) Blood Urea Nitrogen 44 mg/dL (7-18) H Creatinine 2.2 MG/DL (0.55-1.30) H Estimat Glomerular Filtration Rate 22.3 mL/min (>60) Glucose Level 118 MG/DL (74-106) H Calcium Level 8.8 MG/DL (8.5-10.1) Magnesium Level 2.8 MG/DL (1.8-2.4) H Current Medications Medications (Trade) Dose Ordered Sig/Shiraz Route PRN Reason Start Time Stop Time Status Last Admin Dose Admin Acetaminophen (Tylenol) 650 mg Q4H PRN GT Temp >100.5 01/12/20 10:00 02/11/20 09:59 01/13/20 13:38 Acetaminophen (Tylenol) 650 mg Q4H PRN GT Mild Pain (Pain Scale 1-3) 01/12/20 10:00 02/11/20 09:59 01/14/20 01:52 Acetazolamide (Diamox) 500 mg TWICE A DAY NG 01/02/20 18:00 02/01/20 17:59 01/14/20 17:09 Albuterol Sulfate (Proventil MDI) 2 puff Q4H PRN INH Shortness of Breath 12/24/19 10:30 03/23/20 10:29 01/12/20 09:44 Bacitracin (Bacitracin) 2 applic EVERY 12 HOURS TOPIC 01/06/20 21:00 03/12/20 08:59 01/14/20 10:00 Cefepime HCl 1 gm/ Dextrose 50 ml @ 100 mls/hr Q12HR IVPB 01/12/20 21:00 01/19/20 20:59 01/14/20 09:45 Chlorhexidine Gluconate (Jessie-Hex 2%) 1 applic DAILY@1999 TOPIC 12/24/19 20:00 03/23/20 19:59 01/13/20 20:20 Clotrimazole (Lotrimin) 1 applic EVERY 12 HOURS TOPIC 01/05/20 09:00 03/12/20 08:59 01/14/20 09:58 Dextrose 1,000 ml @ 75 mls/hr [id number] IV 01/14/20 18:00 02/13/20 16:29 01/14/20 17:10 Dextrose (Dextrose 50%) 25 ml Q30M PRN IV Hypoglycemia 12/23/19 10:45 03/22/20 10:44 Dextrose (Dextrose 50%) 50 ml Q30M PRN IV Hypoglycemia 12/23/19 10:45 03/22/20 10:44 Docusate Sodium (Colace) 100 mg BID NG 12/25/19 09:00 01/24/20 08:59 01/14/20 17:09 Enoxaparin Sodium (Lovenox) 60 mg DAILY SUBQ 01/13/20 12:00 04/12/20 11:59 01/13/20 12:33 Insulin Aspart (NovoLOG) EVERY 6 HOURS SUBQ 01/05/20 06:00 03/22/20 11:29 01/14/20 12:59 Lorazepam (Ativan) 1 mg EVERY 8 HOURS GT 01/14/20 18:00 01/21/20 17:59 01/14/20 18:21 Magnesium Hydroxide (Mom) 30 ml HSPRN PRN NG Constipation 12/22/19 15:15 01/21/20 15:14 01/02/20 22:20 Metoclopramide HCl (Reglan) 5 mg Q6H IVP 01/05/20 09:15 02/04/20 09:14 01/14/20 13:41 Metoprolol Tartrate (Lopressor) 50 mg Q6HR NG 01/13/20 18:00 04/12/20 17:59 01/14/20 17:09 Metronidazole (Flagyl) 500 mg EVERY 8 HOURS ORAL 01/12/20 22:00 01/19/20 21:59 01/14/20 13:12 Midazolam HCl (Versed 2mg/2ml vial) 2 mg Q1H PRN IVP Agitation 01/10/20 17:15 01/17/20 17:14 01/14/20 04:37 Minocycline HCl (Minocin) 100 mg Q12HR ORAL 01/10/20 21:00 01/17/20 20:59 01/14/20 09:46 Morphine Sulfate (Morphine Sulfate) 2 mg Q4H PRN IVP Moderate Pain (Pain Scale 4-6) 01/14/20 12:00 01/21/20 11:59 01/14/20 17:54 Morphine Sulfate (Morphine Sulfate) 4 mg Q4H PRN IVP Severe Pain (Pain Scale 7-10) 01/14/20 12:00 01/21/20 11:59 Pantoprazole (Protonix) 40 mg EVERY 12 HOURS IVP 01/01/20 21:00 01/31/20 20:59 01/14/20 09:47 Polyethylene Glycol (Miralax) 17 gm BEDTIME NG 12/22/19 21:00 01/18/20 20:59 01/13/20 20:20 Potassium Chloride (K-Dur) 40 meq EVERY 12 HOURS NG 01/05/20 11:45 04/04/20 11:14 01/14/20 09:47 Quetiapine Fumarate (SEROqueL) 150 mg EVERY 8 HOURS ORAL 01/11/20 22:00 02/25/20 21:59 01/14/20 13:13 Aleisha Coronel MD Jan 14, 2020 19:57
[2020-01-14] MEDS: Dyna-Hex 2% Top Sol 2oz TOPIC SCH (21:57)
[2020-01-14] MEDS: Miralax 17gm pkt NG SCH (21:57)
[2020-01-14] MEDS: Morphine Sulfate 4mg/ml Inj (IV USE ONLY) IVP PRN (21:59)
[2020-01-14] MEDS ORDERED: LORazepam 1mg tab ORAL SCH (22:00)
--- NOTE | 2020-01-14 22:26 | Cardiology Progress Note ---
Subjective DATE OF SERVICE: Jan 14, 2020 Doing poorly - remains in ICU in critical condition with guarded prognosis. Remains on vent support - failed weaning trials; now s/p trach BP range remaining low normal range; she had hypotensive episodes yesterday. Remains COVID19 positive. Monitor: AFIb with rapid rates still worsening despite add'l doses of IV diltiazem given. Venous Duplex: negative for DVT Renal fxn and free water deficit worsening CXR (01/13/20) increasing bilateral infiltrates/edema and eff'n - s/p trach Objective Last 24 Hour Vital Signs Date Time Temp Pulse Resp B/P (MAP) Pulse Ox O2 Delivery O2 Flow Rate FiO2 01/14/20 22:13 115 18 100/76 100 01/14/20 20:00 Mechanical Ventilator 01/14/20 20:00 40 01/14/20 19:26 115 18 40 01/14/20 18:51 106 18 100/76 100 01/14/20 18:45 111 27 100/76 (84) 93 01/14/20 18:30 110 24 115/73 (87) 96 01/14/20 18:21 103 18 124/65 100 01/14/20 18:15 104 16 124/65 (84) 100 01/14/20 18:00 114 25 125/85 (98) 98 01/14/20 17:45 118 22 128/64 (85) 100 01/14/20 17:30 125 22 122/71 (88) 73 01/14/20 17:15 128 22 125/72 (89) 01/14/20 17:09 120 139/89 01/14/20 17:00 123 27 139/89 (106) 01/14/20 16:45 120 19 131/86 (101) 01/14/20 16:30 119 23 115/71 (86) 01/14/20 16:15 118 26 139/80 (99) 97 01/14/20 16:00 112 01/14/20 16:00 98.7 114 24 113/72 (86) 96 01/14/20 16:00 40 01/14/20 16:00 Mechanical Ventilator 01/14/20 15:30 104 18 119/72 (88) 01/14/20 15:15 113 18 40 01/14/20 15:00 103 19 118/62 (80) 99 01/14/20 14:30 102 22 122/77 (92) 99 01/14/20 14:00 96 18 108/58 (75) 99 01/14/20 13:47 90 01/14/20 13:30 97 19 105/59 (74) 100 01/14/20 13:00 117 130/57 01/14/20 13:00 128 24 130/57 (81) 98 01/14/20 12:30 115 18 119/72 (88) 99 01/14/20 12:00 99.7 125 21 126/71 (89) 98 01/14/20 12:00 127 01/14/20 12:00 Mechanical Ventilator 01/14/20 12:00 40 01/14/20 11:30 129 23 129/75 (93) 96 01/14/20 11:10 116 19 40 01/14/20 11:00 122 22 106/83 (91) 98 01/14/20 10:45 126 21 107/81 (90) 99 01/14/20 10:30 127 22 105/80 (88) 98 01/14/20 10:15 128 19 127/76 (93) 97 01/14/20 10:00 40 01/14/20 10:00 114 22 133/74 (93) 99 01/14/20 09:45 100 01/14/20 09:45 128 20 130/76 (94) 99 01/14/20 09:30 124 21 134/77 (96) 99 01/14/20 09:15 115 20 134/80 (98) 99 01/14/20 09:15 40 01/14/20 09:00 110 19 115/67 (83) 100 01/14/20 08:45 102 22 110/65 (80) 100 01/14/20 08:30 101 20 104/61 (75) 100 01/14/20 08:15 105 18 116/64 (81) 100 01/14/20 08:00 40 01/14/20 08:00 103 01/14/20 08:00 100.4 98 18 110/61 (77) 100 01/14/20 08:00 Mechanical Ventilator 01/14/20 07:20 96 19 40 01/14/20 07:00 95 18 113/69 (84) 100 01/14/20 06:00 100 18 112/58 (76) 100 10/5/20 05:11 110 110/67 01/14/20 05:00 107 24 110/62 (78) 95 01/14/20 04:00 40 01/14/20 04:00 Mechanical Ventilator 01/14/20 04:00 100.5 111 21 124/75 (91) 99 01/14/20 04:00 107 01/14/20 03:30 115 18 40 01/14/20 03:00 108 21 129/83 (98) 98 01/14/20 02:22 100.5 01/14/20 02:00 109 19 129/76 (93) 100 01/14/20 01:00 102 18 116/75 (89) 99 01/14/20 00:00 Mechanical Ventilator 01/14/20 00:00 100.9 125 21 129/86 (100) 97 01/14/20 00:00 113 01/14/20 00:00 40 01/13/20 23:48 123 126/78 01/13/20 23:00 118 18 119/55 (76) 98 01/13/20 22:46 108 18 40 ROS: unchanged from 12/12/19 HEENT: Orally intubated, Mechanically Ventilated, Thin secretions ET Tube, other - NGtube RHYTHM: NSR, ST LUNGS: diminished breath sounds, right-sided rhonchi CARDIAC: normal S1 and S2, irregularly irregular ABDOMEN: other - obese EXTREMITIES: moderate edema - mostly non pitting, other - hematoma right leg Laboratory Tests Test 01/13/20 22:30 01/14/20 05:15 01/14/20 06:46 Urine Color Yellow Urine Appearance Clear Urine pH 7 (4.5-8.0) Urine Specific [place] 1.005 (1.005-1.035) Urine Protein Negative (NEGATIVE) Urine Glucose (UA) Negative (NEGATIVE) Urine Ketones Negative (NEGATIVE) Urine Blood Negative (NEGATIVE) Urine Nitrite Negative (NEGATIVE) Urine Bilirubin Negative (NEGATIVE) Urine Urobilinogen 8 MG/DL (0.0-1.0) H Urine Leukocyte Esterase Negative (NEGATIVE) POC Whole Blood Glucose Pending White Blood Count 1.9 K/UL (4.8-10.8) *L Red Blood Count 2.37 M/UL (4.20-5.40) L Hemoglobin 6.9 G/DL (12.0-16.0) *L Hematocrit 22.2 % (37.0-47.0) L Mean Corpuscular Volume 94 FL (80-99) Mean Corpuscular Hemoglobin 29.2 PG (27.0-31.0) Mean Corpuscular Hemoglobin Concent 31.2 G/DL (32.0-36.0) L Red Cell Distribution Width 21.2 % (11.6-14.8) H Platelet Count 106 K/UL (150-450) L Mean Platelet Volume 7.1 FL (6.5-10.1) Neutrophils (%) (Auto) % (45.0-75.0) Lymphocytes (%) (Auto) % (20.0-45.0) Monocytes (%) (Auto) % (1.0-10.0) Eosinophils (%) (Auto) % (0.0-3.0) Basophils (%) (Auto) % (0.0-2.0) Differential Total Cells Counted 100 Neutrophils % (Manual) 60 % (45-75) Lymphocytes % (Manual) 30 % (20-45) Monocytes % (Manual) 6 % (1-10) Eosinophils % (Manual) 1 % (0-3) Basophils % (Manual) 1 % (0-2) Band Neutrophils 2 % (0-8) Nucleated Red Blood Cells 2 /100 WBC Platelet Estimate Decreased L Platelet Morphology Normal Hypochromasia 4+ Anisocytosis 3+ Sodium Level 154 MMOL/L (136-145) H Potassium Level 3.8 MMOL/L (3.5-5.1) Chloride Level 120 MMOL/L (98-107) H Carbon Dioxide Level 27 MMOL/L (21-32) Anion Gap 7 mmol/L (5-15) Blood Urea Nitrogen 44 mg/dL (7-18) H Creatinine 2.2 MG/DL (0.55-1.30) H Estimat Glomerular Filtration Rate 22.3 mL/min (>60) Glucose Level 118 MG/DL (74-106) H Calcium Level 8.8 MG/DL (8.5-10.1) Magnesium Level 2.8 MG/DL (1.8-2.4) H Assessment/Plan Assessment/Plan CRITICAL AND GUARDED Acute respiratory failure - s/p trach Acute on chronic respiratory acidosis AFiB with labile heart rates, and now persistent RVR. CHF, ac/chr diastolic BLE edema Sepsis with shock obesity COPD with bronchospasm Acute renal failure - worsening Pleural effusion GI bleeding Anemia - multifactorial, now worse Covid 19 PNA Hypokalemia Dehydration/hypernatremia worsened Hypertension/HHD with labile BP - now stable range. Vent support Advance beta yves and start IV cardizem gtts. PRBC transfusion for hb below 7gm/dl Monitor acid/base parameters. Antimicrobials Lovenox added for cardioembolic prophyl Continued monitoring engineer Potassium and free water suppl in place. Agree with DNR Jerome Meek MD Jan 14, 2020 22:26
--- NOTE | 2020-01-14 23:06 | Psych Consult Progress Note ---
Psychiatry Progress Note Psychiatry Progress Note Subjective cont to be agitated and on bilat restraints. pt is on multiple meds as well as antibiotics now has pancytopenia could be due to abx or Thorazine Medications Current Medications Medications (Trade) Dose Ordered Sig/Shiraz Route PRN Reason Start Time Stop Time Status Last Admin Dose Admin Acetaminophen (Tylenol) 650 mg Q4H PRN GT Temp >100.5 01/12/20 10:00 02/11/20 09:59 01/13/20 13:38 Acetaminophen (Tylenol) 650 mg Q4H PRN GT Mild Pain (Pain Scale 1-3) 01/12/20 10:00 02/11/20 09:59 01/14/20 01:52 Acetazolamide (Diamox) 500 mg TWICE A DAY NG 01/02/20 18:00 02/01/20 17:59 01/14/20 17:09 Albuterol Sulfate (Proventil MDI) 2 puff Q4H PRN INH Shortness of Breath 12/24/19 10:30 03/23/20 10:29 01/12/20 09:44 Bacitracin (Bacitracin) 2 applic EVERY 12 HOURS TOPIC 01/06/20 21:00 03/12/20 08:59 01/14/20 22:21 Cefepime HCl 1 gm/ Dextrose 50 ml @ 100 mls/hr Q12HR IVPB 01/12/20 21:00 01/19/20 20:59 01/14/20 21:56 Chlorhexidine Gluconate (Jessie-Hex 2%) 1 applic DAILY@1999 TOPIC 12/24/19 20:00 03/23/20 19:59 01/14/20 21:57 Clotrimazole (Lotrimin) 1 applic EVERY 12 HOURS TOPIC 01/05/20 09:00 03/12/20 08:59 01/14/20 22:02 Dextrose 1,000 ml @ 75 mls/hr [id number] IV 01/14/20 18:00 02/13/20 16:29 01/14/20 17:10 Dextrose (Dextrose 50%) 25 ml Q30M PRN IV Hypoglycemia 12/23/19 10:45 03/22/20 10:44 Dextrose (Dextrose 50%) 50 ml Q30M PRN IV Hypoglycemia 12/23/19 10:45 03/22/20 10:44 Diltiazem HCl 125 ml @ 0 mls/hr Q24H IVPB 01/14/20 18:00 01/15/20 17:59 01/14/20 18:00 Docusate Sodium (Colace) 100 mg BID NG 12/25/19 09:00 01/24/20 08:59 01/14/20 17:09 Enoxaparin Sodium (Lovenox) 60 mg DAILY SUBQ 01/13/20 12:00 04/12/20 11:59 01/13/20 12:33 Insulin Aspart (NovoLOG) EVERY 6 HOURS SUBQ 01/05/20 06:00 03/22/20 11:29 01/14/20 12:59 Lorazepam (Ativan) 1 mg EVERY 8 HOURS GT 01/14/20 18:00 01/21/20 17:59 01/14/20 22:13 Magnesium Hydroxide (Mom) 30 ml HSPRN PRN NG Constipation 12/22/19 15:15 01/21/20 15:14 01/02/20 22:20 Metoclopramide HCl (Reglan) 5 mg Q6H IVP 01/05/20 09:15 02/04/20 09:14 01/14/20 22:01 Metoprolol Tartrate (Lopressor) 50 mg Q6HR NG 01/13/20 18:00 04/12/20 17:59 01/14/20 17:09 Metronidazole (Flagyl) 500 mg EVERY 8 HOURS ORAL 01/12/20 22:00 01/19/20 21:59 01/14/20 22:00 Midazolam HCl (Versed 2mg/2ml vial) 2 mg Q1H PRN IVP Agitation 01/10/20 17:15 01/17/20 17:14 01/14/20 04:37 Minocycline HCl (Minocin) 100 mg Q12HR ORAL 01/10/20 21:00 01/17/20 20:59 01/14/20 22:00 Morphine Sulfate (Morphine Sulfate) 2 mg Q4H PRN IVP Moderate Pain (Pain Scale 4-6) 01/14/20 12:00 01/21/20 11:59 01/14/20 17:54 Morphine Sulfate (Morphine Sulfate) 4 mg Q4H PRN IVP Severe Pain (Pain Scale 7-10) 01/14/20 12:00 01/21/20 11:59 01/14/20 21:59 Pantoprazole (Protonix) 40 mg EVERY 12 HOURS IVP 01/01/20 21:00 01/31/20 20:59 01/14/20 21:57 Polyethylene Glycol (Miralax) 17 gm BEDTIME NG 12/22/19 21:00 01/18/20 20:59 01/14/20 21:57 Potassium Chloride (K-Dur) 40 meq EVERY 12 HOURS NG 01/05/20 11:45 04/04/20 11:14 01/14/20 22:01 Quetiapine Fumarate (SEROqueL) 150 mg EVERY 8 HOURS ORAL 01/11/20 22:00 02/25/20 21:59 01/14/20 21:58 Neurological/Psychiatric: Reports: anxiety, depressed, emotional problems Allergies: Coded Allergies: ERYTHROMYCIN BASE (Verified Allergy, Severe, 12/12/19) HALOPERIDOL (Verified Allergy, Unknown, 12/12/19) VANCOMYCIN (Unverified Adverse Reaction, Intermediate, Shortness of Breath, 12/12/19) Objective Data Height (Feet): 5 Height (Inches): 6.00 Weight (Pounds): 343 General Appearance: WD/WN, confused, agitated, morbidly obese, other - sedated vent Additional Comments: confused. Mood is anxious. Affect is flat. Assessment/Plan Problem List: (1) Pancytopenia (2) Schizophrenia (3) Opiate dependence Status: stable Status Narrative dc thorazin IM seroquel 150 q 8 hr midazolam prn bilat soft restraints start ativan 1mg po q 8hrs Harris Ballesteros MD Jan 14, 2020 23:06
[2020-01-15] VITALS (31 sets, daily range): BP systolic 98–148; BP diastolic 21–102
--- NOTE | 2020-01-15 | NUR ---
NURSE NOTES: Condition unchanged. Tolerating GT feeding well. W/no residual noted. VSS. Slightly febrile. IN NO APPARENT DISTRESS.
[2020-01-15] MEDS: Acetaminophen 650mg/20.3ml GT PRN ×2 (00:56→05:41)
[2020-01-15] MEDS: dilTIAZem Premix 125mg/125ml 125 ML IVPB SCH ×2 (00:58→15:40)
[2020-01-15] MEDS: Metoprolol Tartrate 50mg tab NG SCH ×5 (00:59→23:41)
[2020-01-15] MEDS: Metoclopramide 10mg/2ml Inj IVP SCH ×4 (02:50→21:02)
--- NOTE | 2020-01-15 04:00 | NUR ---
NURSE NOTES: Sleeping. Respirations even and unlabored. Remain slightly febrile. Continue to tolerate gt feeing well In no apparent distress.
[2020-01-15] MEDS: NovoLOG Insulin Flexpen SUBQ SCH ×4 (05:41→17:42)
[2020-01-15] MEDS: metroNIDAZOLE 500mg tab ORAL SCH ×3 (05:42→22:26)
[2020-01-15] MEDS: LORazepam 1mg tab GT SCH ×3 (05:43→22:26)
[2020-01-15] MEDS: Morphine Sulfate 4mg/ml Inj (IV USE ONLY) IVP PRN ×3 (05:44→15:29)
--- NOTE | 2020-01-15 06:00 | NUR ---
NURSE NOTES: Wound care to right lower leg done. Suctioned via trach of clear colored sputum. Respirations even and unlabored. No distress noted.
[2020-01-15 06:37] LABS: HEMATOCRIT 26.6 % (37.0-47.0); HEMOGLOBIN 8.3 G/DL (12.0-16.0); MEAN CORPUSCULAR VOLUME 95 FL (80-99); PLATELET COUNT 142 K/UL (150-450); RED CELL DISTRIBUTION WIDTH 21.5 % (11.6-14.8); WHITE BLOOD COUNT 2.6 K/UL (4.8-10.8)
[2020-01-15 06:59] LABS: ALANINE AMINOTRANSFERASE 8 U/L (12-78); ALBUMIN 1.8 G/DL (3.4-5.0); ALBUMIN/GLOBULIN RATIO 0.3 (1.0-2.7); ALKALINE PHOSPHATASE 74 U/L (46-116); ASPARTATE AMINO TRANSFERASE 13 U/L (15-37); BILIRUBIN,TOTAL 0.7 MG/DL (0.2-1.0); BLOOD UREA NITROGEN 43 mg/dL (7-18); CALCIUM 8.8 MG/DL (8.5-10.1); CARBON DIOXIDE 29 MMOL/L (21-32); CREATININE 2.2 MG/DL (0.55-1.30)
[2020-01-15 07:15] LABS: CHLORIDE 118 MMOL/L (98-107); POTASSIUM 4.3 MMOL/L (3.5-5.1); SODIUM 155 MMOL/L (136-145)
--- NOTE | 2020-01-15 08:00 | NUR ---
NURSE NOTES: Pt was assessed after receiving change of shift report from Chava COHEN. Pt has eyes closed, awakens to touch, is restless, facial grimacing and impulsive, attempting to reach for IV lines/trach. Pt is on trach to vent, Shiley 8, with vent settings, AC18, VT600, Peep 5.0, FIO2 40% currently at 100% O2Sat. AFib on monitor worker, HR fluctuating from 90 to 104 bmp. OGT present, with feeding Vital AF infusing at goal rate of 60ml/hour and zero residual. Lockett catheter is present, draining, dark doretha urine with heavy sedimentation. Skin alterations are noted including sacral skin tear and right lower extremity open wound. Pt is on pressure release mattress. Bed is locked, HOB at 30 degrees, three side rails up, and bed in lowest position. Bilateral soft wrist restraints are in place to prevent self-extubation; Skin and vascular integrity at restraint site remains within normal limits. HOB at 30degrees, bed locked/in lowest position, three side rails up. Will continue with plan of care.
--- NOTE | 2020-01-15 08:01 | NUR ---
NURSE HAND-OFF REPORT: Latest Vital Signs: Temperature 99.1 , Pulse 103 , B/P 108 /64 , Respiratory Rate 20 , O2 SAT 96 , Mechanical Ventilator, O2 Flow Rate . Vital Sign Comment: EKG Rhythm: Atrial Fibrillation Rhythm change?: N MD Notified?: Response: Latest Abreu Fall Score: 75 Fall Risk: High Risk Safety Measures: Call light Within Reach, Bed Alarm Zone 1, Side Rails Side Rails x3, Bed position Low and Locked. Fall Precautions: Yellow Socks Yellow Gown Door Sign Patient Fall Education Report given to NOEL Galvan.
[2020-01-15] MEDS: Pantoprazole Inj IVP SCH ×2 (09:39→21:03)
[2020-01-15] MEDS: Docusate 100mg/10ml Liq NG SCH ×2 (09:39→17:04)
[2020-01-15] MEDS: Bacitracin Oint UD TOPIC SCH ×2 (09:40→21:03)
[2020-01-15] MEDS: Minocycline HCl 50mg cap ORAL SCH ×2 (09:40→21:03)
[2020-01-15] MEDS: Enoxaparin 60mg Inj SUBQ SCH (09:49)
--- NOTE | 2020-01-15 10:00 | NUR ---
NURSE NOTES: AM meds were administered. Pt was also given Morphine 4mg IVP per PRN order for severe pain, as she is noted to be in distress, with facial grimacing, tachycardic, tachypneic. Oral care was done.
--- NOTE | 2020-01-15 10:32 | NUR ---
RADIOLOGY DEPT., CHEST X-RAY COMPLETED.-P.DYE
--- NOTE | 2020-01-15 11:28 | Pulmonolgy Critical Care Note ---
Luz Bowen [employer] 01/15/20 1128: Critical Care - Asmt/Plan Assessment/Plan: ASSESSMENT acute hypoxemic hypercapnic resp failure, requiring intubation 12/22 s/p trach 01/08 COVID 19 PNA sepsis fungemia UTI with E coli ESBL UTI VRE possible aspiration PNA - s/p treatment Moderate R pleural effusion COPD Atrial fibrillation with RVR CHF Acute renal failure on CKD Severe anemia dysphagia, s/p PEG 01/08 Thrombocytopenia Status post ground fall Tobacco dependency Morbid obesity probable GARY R knee edema and hematoma, possible cellulitis Hyper Na due to free water deficit PLAN OF CARE s/p trach, cont PS trials as tolerated-not tolerated developed tachycardia /A fib with RVR now on Cardizem gtt , weaning trial on hold monitor ABG monitor effusion , CXR 12/13 with mild increase in effusion compare to prior CXR, will fup with imaging in am repeated COVID 19 01/14 NGT s/p steroids IV ( started 12/23) continue for total of 10 days till 01/02 s/p Remdesivir (started 12/24 ), dc 12/30 initial diagnoses with COVID 19 at [facility] 11/29, was not hypoxic and not intubated, was not treated with Remdesivivr , only received empiric abx for PNA DVT prophylaxis with Lovenox on diuresis with Lasix, decreased by Dr. Dumont monitor volumes closely creat remains stable consider d/c diamox afib rate control - now on Cardizem gtt GI prophylaxis with PPI s/p PEG 01/09, asp precautions, SCX 01/07 + ACB MDR BCX 01/07 NGTD UCX 01/07 NGT stool C dif 01/10 NGT UA 01/12 unremarkable remains febrile s/p Polymyxin , Zyvox and Zosyn -as per ID recs, now on Minocycline or possible cellulitis R leg as well as cefepime and Flagyl severely leukopenic ? due to meds vs ? primary BM disease monitor counts immunofixation screen unremarkable transfuse to keep Hgb > 7 , s/p transfusion 01/13 previously evaluated by bioethics -> DNR/DNI status appropriate case discussed and evaluated by supervising physician Critical Care - Objective Last 24 Hour Vital Signs Date Time Temp Pulse Resp B/P (MAP) Pulse Ox O2 Delivery O2 Flow Rate FiO2 01/15/20 10:20 99.1 10/6/20 10:00 100 01/15/20 08:40 104 20 40 40 01/15/20 07:28 98 19 40 01/15/20 07:00 103 20 108/64 (79) 96 01/15/20 06:00 99.1 01/15/20 06:00 99.1 140 76 01/15/20 05:42 135 132/96 01/15/20 05:00 137 78 01/15/20 04:00 137 01/15/20 04:00 142 21 148/86 (106) 97 01/15/20 04:00 Mechanical Ventilator 01/15/20 04:00 40 01/15/20 03:00 148 21 125/93 (104) 90 01/15/20 02:59 135 24 40 01/15/20 02:00 142 22 132/96 (108) 87 01/15/20 02:00 100.7 01/15/20 01:00 144 23 130/75 (93) 91 01/15/20 00:59 127 138/83 01/15/20 00:00 100.7 151 17 113/21 (51) 92 01/15/20 00:00 147 01/15/20 00:00 40 01/15/20 00:00 Mechanical Ventilator 01/14/20 23:11 127 21 40 01/14/20 23:00 141 22 138/83 (101) 98 01/14/20 22:30 100.7 01/14/20 22:13 115 18 100/76 100 01/14/20 22:00 135 24 134/83 (100) 99 01/14/20 21:00 121 21 124/60 (81) 01/14/20 20:00 Mechanical Ventilator 01/14/20 20:00 40 01/14/20 20:00 122 01/14/20 20:00 99.9 120 22 124/76 (92) 79 01/14/20 19:26 115 18 40 01/14/20 18:51 106 18 100/76 100 01/14/20 18:45 111 27 100/76 (84) 93 01/14/20 18:30 110 24 115/73 (87) 96 01/14/20 18:21 103 18 124/65 100 01/14/20 18:15 104 16 124/65 (84) 100 01/14/20 18:00 114 25 125/85 (98) 98 01/14/20 17:45 118 22 128/64 (85) 100 01/14/20 17:30 125 22 122/71 (88) 73 01/14/20 17:15 128 22 125/72 (89) 01/14/20 17:09 120 139/89 01/14/20 17:00 123 27 139/89 (106) 01/14/20 16:45 120 19 131/86 (101) 01/14/20 16:30 119 23 115/71 (86) 01/14/20 16:15 118 26 139/80 (99) 97 01/14/20 16:00 112 01/14/20 16:00 98.7 114 24 113/72 (86) 96 01/14/20 16:00 40 01/14/20 16:00 Mechanical Ventilator 01/14/20 15:30 104 18 119/72 (88) 01/14/20 15:15 113 18 40 01/14/20 15:00 103 19 118/62 (80) 99 01/14/20 14:30 102 22 122/77 (92) 99 01/14/20 14:00 96 18 108/58 (75) 99 01/14/20 13:47 90 01/14/20 13:30 97 19 105/59 (74) 100 01/14/20 13:00 117 130/57 01/14/20 13:00 128 24 130/57 (81) 98 01/14/20 12:30 115 18 119/72 (88) 99 01/14/20 12:00 99.7 125 21 126/71 (89) 98 01/14/20 12:00 127 01/14/20 12:00 Mechanical Ventilator 01/14/20 12:00 40 01/14/20 11:30 129 23 129/75 (93) 96 Objective: CONDITION: critical General Appearance: morbidly obese , sedated, generalized anasarca ; on vent AC 600-18-40% PEEP 5 Lines, tubes and drains: LUE PICC new , intact HEENT: normocephalic, atraumatic, anicteric, Neck: trach with Shiley # 8, secretions moderate amount, yellow color, thick consistency Respiratory/Chest: chest wall non-tender, no accessory muscle use, BS overall clear, Cardiovascular/Chest: irregularly irregular - A fib . tachy , distant heart sounds, Abdomen: normal bowel sounds, non tender , obese, soft ; G tube with TF : Lockett Extremities: no calf tenderness, moderate edema - +3 BLE, R knee with large hematoma, edema, Skin Exam: warm/dry, multiple tattoos Neurologic: sedated Musculoskeletal: normal muscle bulk Micro: Microbiology Date/Time Source Procedure Growth Status 01/15/20 01:20 Nasopharynx SARS-CoV-2 RdRp Gene Assay - Final Complete Accucheck: 139 Critical Care - Subjective ROS Limited/Unobtainable: Yes Interval Events: remains in ICU due to being on Cardizem gtt weaning on hold due to tachycardia fever overnight, currently afebrile s/p blood transfusion 01/13 Hgb up to 8.3 WBC better repeated COVID 19 01/14 NGT Condition: critical IV Access: PICC - LUE intact EKG Rhythm: Atrial Fibrillation FI02: 40 Vent Support Breath Rate: 18 Vent Support Mode: CPAP Vent Tidal Volume: 600 Sputum Amount: Small PEEP: 5.0 PIP: 14 Drips: Cardizem gtt 10 mg/hr Tube Feeding Amount: 60 I&O: Intake and Output 01/14/20 01/15/20 19:00 07:00 Intake Total 1171.71171 ml 1680.0 ml Output Total 1450 ml 300 ml Balance -278.13456 ml 1380.0 ml Free Water 50 ml 50 ml IV Total 591.12983 ml 970.0 ml Tube Feeding 530 ml 660 ml Output Urine Total 1450 ml 300 ml # Bowel Movements 2 CXR: 01/12 Midline tracheostomy tube. Left upper extremity PICC line terminates in the left brachycephalic vein, unchanged. Mild-moderate vascular congestion, which is mildly increased when compared to January 10, 2020. Moderate left pleural effusion, which has mildly increased when compared to January 10, 2020. No pneumothorax. Colt Keen MD 01/15/20 1509: Critical Care - Asmt/Plan Assessment/Plan: Patient seen and examined with [employer] and the above formulated assessment and plan. Time Spent (Minutes): 40 - cc Luz Bowen NP Jan 15, 2020 11:28 Colt Keen MD Jan 15, 2020 15:09
[2020-01-15] MEDS: Midazolam 2mg/2ml Inj IVP PRN ×3 (12:21→23:41)
--- NOTE | 2020-01-15 12:30 | NUR ---
NURSE NOTES: Pt was administered Versed 2mg IVP per PRN order for anxiety, as pt is noted to be restless. Pt remains on Cardizem drip at 10mg/hr to maintain HR below 100bmp. Pt is afebrile. Accucheck resulted 136 and insulin was held per Sliding scale order.
--- NOTE | 2020-01-15 12:44 | General Progress Note ---
Subjective ROS Limited/Unobtainable: No Allergies: Coded Allergies: ERYTHROMYCIN BASE (Verified Allergy, Severe, 12/12/19) HALOPERIDOL (Verified Allergy, Unknown, 12/12/19) VANCOMYCIN (Unverified Adverse Reaction, Intermediate, Shortness of Breath, 12/12/19) Objective Last 24 Hour Vital Signs Date Time Temp Pulse Resp B/P (MAP) Pulse Ox O2 Delivery O2 Flow Rate FiO2 01/15/20 12:21 120 118/69 01/15/20 11:00 120 118/69 (85) 100 01/15/20 10:30 116 120/68 (85) 100 01/15/20 10:20 99.1 01/15/20 10:00 131 140/71 (94) 100 01/15/20 10:00 100 01/15/20 09:30 122 109/74 (86) 99 01/15/20 09:00 0 123/76 (92) 96 01/15/20 08:40 104 20 40 40 01/15/20 08:30 93 100/55 (70) 96 01/15/20 08:00 96 01/15/20 08:00 99.0 99 102/52 (69) 100 01/15/20 08:00 40 01/15/20 08:00 Mechanical Ventilator 01/15/20 07:28 98 19 40 01/15/20 07:00 103 20 108/64 (79) 96 01/15/20 06:00 99.1 01/15/20 06:00 99.1 140 76 01/15/20 05:42 135 132/96 01/15/20 05:00 137 78 01/15/20 04:00 137 01/15/20 04:00 142 21 148/86 (106) 97 01/15/20 04:00 Mechanical Ventilator 01/15/20 04:00 40 01/15/20 03:00 148 21 125/93 (104) 90 01/15/20 02:59 135 24 40 01/15/20 02:00 142 22 132/96 (108) 87 01/15/20 02:00 100.7 01/15/20 01:00 144 23 130/75 (93) 91 01/15/20 00:59 127 138/83 01/15/20 00:00 100.7 151 17 113/21 (51) 92 01/15/20 00:00 147 10/6/20 00:00 40 01/15/20 00:00 Mechanical Ventilator 01/14/20 23:11 127 21 40 01/14/20 23:00 141 22 138/83 (101) 98 01/14/20 22:30 100.7 01/14/20 22:13 115 18 100/76 100 01/14/20 22:00 135 24 134/83 (100) 99 01/14/20 21:00 121 21 124/60 (81) 01/14/20 20:00 Mechanical Ventilator 01/14/20 20:00 40 01/14/20 20:00 122 01/14/20 20:00 99.9 120 22 124/76 (92) 79 01/14/20 19:26 115 18 40 01/14/20 18:51 106 18 100/76 100 01/14/20 18:45 111 27 100/76 (84) 93 01/14/20 18:30 110 24 115/73 (87) 96 01/14/20 18:21 103 18 124/65 100 01/14/20 18:15 104 16 124/65 (84) 100 01/14/20 18:00 114 25 125/85 (98) 98 01/14/20 17:45 118 22 128/64 (85) 100 01/14/20 17:30 125 22 122/71 (88) 73 01/14/20 17:15 128 22 125/72 (89) 01/14/20 17:09 120 139/89 01/14/20 17:00 123 27 139/89 (106) 01/14/20 16:45 120 19 131/86 (101) 01/14/20 16:30 119 23 115/71 (86) 01/14/20 16:15 118 26 139/80 (99) 97 01/14/20 16:00 112 01/14/20 16:00 98.7 114 24 113/72 (86) 96 01/14/20 16:00 40 01/14/20 16:00 Mechanical Ventilator 01/14/20 15:30 104 18 119/72 (88) 01/14/20 15:15 113 18 40 01/14/20 15:00 103 19 118/62 (80) 99 01/14/20 14:30 102 22 122/77 (92) 99 01/14/20 14:00 96 18 108/58 (75) 99 01/14/20 13:47 90 01/14/20 13:30 97 19 105/59 (74) 100 01/14/20 13:00 117 130/57 01/14/20 13:00 128 24 130/57 (81) 98 Intake and Output 01/14/20 01/15/20 19:00 07:00 Intake Total 1171.94395 ml 1690.0 ml Output Total 1450 ml 300 ml Balance -278.07222 ml 1390.0 ml Free Water 50 ml 50 ml IV Total 591.88259 ml 980.0 ml Tube Feeding 530 ml 660 ml Output Urine Total 1450 ml 300 ml # Bowel Movements 2 Laboratory Tests 01/15/20 05:33: White Blood Count 2.6L, Red Blood Count 2.80L, Hemoglobin 8.3L, Hematocrit 26.6L , Mean Corpuscular Volume 95, Mean Corpuscular Hemoglobin 29.5, Mean Corpuscular Hemoglobin Concent 31.1L, Red Cell Distribution Width 21.5H, Platelet Count 142L , Mean Platelet Volume 6.7, Neutrophils (%) (Auto) , Lymphocytes (%) (Auto) , Monocytes (%) (Auto) , Eosinophils (%) (Auto) , Basophils (%) (Auto) , Differential Total Cells Counted 100, Neutrophils % (Manual) 61, Lymphocytes % (Manual) 25, Monocytes % (Manual) 12H, Eosinophils % (Manual) 2, Basophils % (Manual) 0, Band Neutrophils 0, Platelet Estimate DecreasedL, Platelet Morphology Normal, Hypochromasia 2+, Anisocytosis 2+, Sodium Level 155H, Potassium Level 4.3, Chloride Level 118H, Carbon Dioxide Level 29, Blood Urea Nitrogen 43H, Creatinine 2.2H, Estimat Glomerular Filtration Rate 22.3, Glucose Level 134H, Calcium Level 8.8, Total Bilirubin 0.7, Aspartate Amino Transf (AST/SGOT) 13L, Alanine Aminotransferase (ALT/SGPT) 8L, Alkaline Phosphatase 74, Total Protein 7.7, Albumin 1.8L, Globulin 5.9, Albumin/Globulin Ratio 0.3L Height (Feet): 5 Height (Inches): 6.00 Weight (Pounds): 343 General Appearance: no apparent distress EENT: normal ENT inspection Neck: supple Cardiovascular: normal rate Respiratory/Chest: decreased breath sounds Abdomen: normal bowel sounds, non tender, soft Extremities: non-tender Assessment/Plan Problem List: (1) CKD (chronic kidney disease) stage 3, GFR 30-59 ml/min ICD Codes: N18.3 - Chronic kidney disease, stage 3 (moderate) SNOMED: 524020747 (2) COPD (chronic obstructive pulmonary disease) ICD Codes: J44.9 - Chronic obstructive pulmonary disease, unspecified SNOMED: 28122754 (3) Smoker ICD Codes: F17.200 - Nicotine dependence, unspecified, uncomplicated SNOMED: 18601960 (4) GERD (gastroesophageal reflux disease) ICD Codes: K21.9 - Gastro-esophageal reflux disease without esophagitis SNOMED: 969776975 (5) Atrial fibrillation with RVR ICD Codes: I48.91 - Unspecified atrial fibrillation SNOMED: 890311874806449 Status: stable Assessment/Plan: pepcid fu H&H monitor labs bowel regimen fu cardiology recs icu care ppi cbc in am s/p Trach and PEG GTF monitor for residuals Mervin Victoria MD Jan 15, 2020 12:44
--- NOTE | 2020-01-15 14:35 | Diagnostic Imaging Report ---
Indication: Dyspnea Technique: One view of the chest Comparison: 01/13/2020 Findings: Bilateral pleural effusions, mild hazy interstitial and airspace edema persists, unchanged. Cardiomegaly persists. Tracheostomy, left arm PICC again demonstrated. Findings are unchanged Impression: Unchanged, over one day, findings as above.
--- NOTE | 2020-01-15 14:36 | Surgery Progress Note ---
Surgery Progress Note Subjective Procedure Performed tracheostomy Additional Comments agitated ill appearing Objective Last 24 Hour Vital Signs Date Time Temp Pulse Resp B/P (MAP) Pulse Ox O2 Delivery O2 Flow Rate FiO2 01/15/20 14:00 108 18 107/65 (79) 100 01/15/20 13:00 107 100/55 (70) 100 01/15/20 12:30 117 111/75 (87) 100 01/15/20 12:21 120 118/69 01/15/20 12:00 40 01/15/20 12:00 100 01/15/20 12:00 99.1 120 109/53 (71) 100 01/15/20 12:00 Mechanical Ventilator 01/15/20 11:00 120 118/69 (85) 100 01/15/20 10:30 116 120/68 (85) 100 01/15/20 10:20 99.1 01/15/20 10:00 131 140/71 (94) 100 01/15/20 10:00 100 01/15/20 09:30 122 109/74 (86) 99 01/15/20 09:00 0 123/76 (92) 96 01/15/20 08:40 104 20 40 40 01/15/20 08:30 93 100/55 (70) 96 01/15/20 08:00 96 01/15/20 08:00 99.0 99 102/52 (69) 100 01/15/20 08:00 40 01/15/20 08:00 Mechanical Ventilator 01/15/20 07:28 98 19 40 01/15/20 07:00 103 20 108/64 (79) 96 01/15/20 06:00 99.1 01/15/20 06:00 99.1 140 76 01/15/20 05:42 135 132/96 01/15/20 05:00 137 78 01/15/20 04:00 137 01/15/20 04:00 142 21 148/86 (106) 97 01/15/20 04:00 Mechanical Ventilator 01/15/20 04:00 40 01/15/20 03:00 148 21 125/93 (104) 90 01/15/20 02:59 135 24 40 01/15/20 02:00 142 22 132/96 (108) 87 01/15/20 02:00 100.7 01/15/20 01:00 144 23 130/75 (93) 91 01/15/20 00:59 127 138/83 01/15/20 00:00 100.7 151 17 113/21 (51) 92 01/15/20 00:00 147 01/15/20 00:00 40 01/15/20 00:00 Mechanical Ventilator 01/14/20 23:11 127 21 40 01/14/20 23:00 141 22 138/83 (101) 98 01/14/20 22:30 100.7 01/14/20 22:13 115 18 100/76 100 01/14/20 22:00 135 24 134/83 (100) 99 01/14/20 21:00 121 21 124/60 (81) 01/14/20 20:00 Mechanical Ventilator 01/14/20 20:00 40 01/14/20 20:00 122 01/14/20 20:00 99.9 120 22 124/76 (92) 79 01/14/20 19:26 115 18 40 01/14/20 18:51 106 18 100/76 100 01/14/20 18:45 111 27 100/76 (84) 93 01/14/20 18:30 110 24 115/73 (87) 96 01/14/20 18:21 103 18 124/65 100 01/14/20 18:15 104 16 124/65 (84) 100 01/14/20 18:00 114 25 125/85 (98) 98 01/14/20 17:45 118 22 128/64 (85) 100 01/14/20 17:30 125 22 122/71 (88) 73 01/14/20 17:15 128 22 125/72 (89) 01/14/20 17:09 120 139/89 01/14/20 17:00 123 27 139/89 (106) 01/14/20 16:45 120 19 131/86 (101) 01/14/20 16:30 119 23 115/71 (86) 01/14/20 16:15 118 26 139/80 (99) 97 01/14/20 16:00 112 01/14/20 16:00 98.7 114 24 113/72 (86) 96 01/14/20 16:00 40 01/14/20 16:00 Mechanical Ventilator 01/14/20 15:30 104 18 119/72 (88) 01/14/20 15:15 113 18 40 01/14/20 15:00 103 19 118/62 (80) 99 I&O Intake and Output 01/14/20 01/15/20 19:00 07:00 Intake Total 1171.18587 ml 1690.0 ml Output Total 1450 ml 300 ml Balance -278.61518 ml 1390.0 ml Free Water 50 ml 50 ml IV Total 591.75856 ml 980.0 ml Tube Feeding 530 ml 660 ml Output Urine Total 1450 ml 300 ml # Bowel Movements 2 Dressing: saturated Cardiovascular: RSR Respiratory: decreased breath sounds Abdomen: non-tender, present bowel sounds Extremities: edema, cyanosis Laboratory Tests Test 01/15/20 05:33 White Blood Count 2.6 K/UL (4.8-10.8) L Red Blood Count 2.80 M/UL (4.20-5.40) L Hemoglobin 8.3 G/DL (12.0-16.0) L Hematocrit 26.6 % (37.0-47.0) L Mean Corpuscular Volume 95 FL (80-99) Mean Corpuscular Hemoglobin 29.5 PG (27.0-31.0) Mean Corpuscular Hemoglobin Concent 31.1 G/DL (32.0-36.0) L Red Cell Distribution Width 21.5 % (11.6-14.8) H Platelet Count 142 K/UL (150-450) L Mean Platelet Volume 6.7 FL (6.5-10.1) Neutrophils (%) (Auto) % (45.0-75.0) Lymphocytes (%) (Auto) % (20.0-45.0) Monocytes (%) (Auto) % (1.0-10.0) Eosinophils (%) (Auto) % (0.0-3.0) Basophils (%) (Auto) % (0.0-2.0) Differential Total Cells Counted 100 Neutrophils % (Manual) 61 % (45-75) Lymphocytes % (Manual) 25 % (20-45) Monocytes % (Manual) 12 % (1-10) H Eosinophils % (Manual) 2 % (0-3) Basophils % (Manual) 0 % (0-2) Band Neutrophils 0 % (0-8) Platelet Estimate Decreased L Platelet Morphology Normal Hypochromasia 2+ Anisocytosis 2+ Sodium Level 155 MMOL/L (136-145) H Potassium Level 4.3 MMOL/L (3.5-5.1) Chloride Level 118 MMOL/L (98-107) H Carbon Dioxide Level 29 MMOL/L (21-32) Blood Urea Nitrogen 43 mg/dL (7-18) H Creatinine 2.2 MG/DL (0.55-1.30) H Estimat Glomerular Filtration Rate 22.3 mL/min (>60) Glucose Level 134 MG/DL (74-106) H Calcium Level 8.8 MG/DL (8.5-10.1) Total Bilirubin 0.7 MG/DL (0.2-1.0) Aspartate Amino Transf (AST/SGOT) 13 U/L (15-37) L Alanine Aminotransferase (ALT/SGPT) 8 U/L (12-78) L Alkaline Phosphatase 74 U/L (46-116) Total Protein 7.7 G/DL (6.4-8.2) Albumin 1.8 G/DL (3.4-5.0) L Globulin 5.9 g/dL Albumin/Globulin Ratio 0.3 (1.0-2.7) L Plan Problems: (1) Urinary tract infection (2) CHF exacerbation (3) History of schizophrenia (4) Atrial fibrillation with RVR (5) Schizophrenia (6) GERD (gastroesophageal reflux disease) (7) Smoker (8) Atrial fibrillation with rapid ventricular response (9) Lymphadema (10) COPD (chronic obstructive pulmonary disease) (11) CKD (chronic kidney disease) stage 3, GFR 30-59 ml/min (12) NATALIE (acute kidney injury) (13) Dehydration (14) Dysphagia (15) UTI (urinary tract infection) (16) UGI bleed (17) ESBL (extended spectrum beta-lactamase) producing bacteria infection (18) Constipation (19) Lactic acidosis (20) Tinea cruris (21) Onychomycosis (22) Emesis (23) Essential hypertension (24) Anemia (25) Cough (26) Depression (27) Depression (28) Edema (29) Rash (30) Opiate dependence (31) Opiate dependence (32) Opiate dependence (33) Opiate dependence (34) Pyelonephritis (35) Sepsis (36) UTI (urinary tract infection) (37) Nausea and vomiting (38) Abdominal pain Assessment & Plan: [age]-year-old female obese white abdominal pain deep tissue injury identified limited mobility on HD. KUB noted tube in place continue meds feeds Does not seem obstructed We will monitor lines noted. plan change resume tube feeds labs okay FINDINGS: Lower thorax: Obscuration of the left costophrenic angle suggestive of pleural effusion. Intraperitoneal space: No free air. Gastrointestinal tract: Unremarkable. No dilation. Bones/joints: Unremarkable. Tubes, lines and devices: The nasogastric tube has the tip at the mid inferior aspect of the gastric body. Other findings: Nonspecific gas pattern. Single frontal view of the abdomen demonstrates tip of the enteric tube and distal side-port projecting over the stomach. Gas is identified within the nondistended large bowel. There is a paucity of small bowel gas seen. Partially visualized left pleural effusion. No other significant interval change. (39) Chest pain (40) Chest pain (41) Nausea (42) Obesity (43) Chronic ulcer of leg (44) Chronic ulcer of leg (45) Chronic ulcer of leg (46) ACS (acute coronary syndrome) (47) Acute chest pain (48) Encounter for dressing change or suture removal (49) Left leg cellulitis (50) Acute encephalopathy (51) Encounter for wound re-check (52) Intractable nausea and vomiting (53) Infection due to ESBL-producing Escherichia coli (54) Chronic venous stasis (55) Change of dressing (56) Change of dressing (57) Change of dressing (58) Change of dressing (59) Change of dressing (60) Change of dressing (61) Change of dressing (62) Change of dressing (63) ESBL urine (64) Lymphadema (65) Lymphedema (66) Lymphedema (67) Lymphedema (68) Lymphedema (69) Lymphedema (70) Lymphedema (71) Lymphedema (72) Lymphedema (73) Open wound of foot (74) Open wound of foot (75) cellulitis (76) chronic lymphedema (77) chronic lymphedema (78) chronic lymphedema (79) hypertension uncontrolled (80) hypertension uncontrolled (81) Intertrigo (82) Sciatica (83) Cellulitis (84) Schizophrenia (85) Chronic bronchitis (86) HTN (hypertension) (87) Venous stasis ulcers (88) Medication refill (89) Chest pain, atypical (90) BMI 45.0-49.9, adult (91) Lymphedema of both lower extremities (92) hypertension uncontrolled (93) hypertension uncontrolled (94) hypertension uncontrolled (95) tenia corpus (96) Deep tissue injury Assessment & Plan: Morbidly obese pt whom presented on admission with Pressure injuries, Edemae bilat lower extremities eschar to dorsal aspects of metatarsals. Pt is very demanding of staff and can be resistive to repositioning. DTPI noted to L Sacrum(L)5.5cm x (W)2.5cm. Base of Pressure Injury is Maroon and indurated with surrounding non-blanchable erythema DTPI R Sacrum(L)5.5cm x (W)2.3cm. Base of Pressure Injury is maroon with purpuric center that is fluctuant. Pt complained of tenderness when minimally palpated. Bilat lower extremities are edematous . Dry eschar noted to nail matrix and tip of L 1st metatarsal, Dorsal L 2nd metatarsal, R 2nd and R 4th metatarsals. Both heels are boggy with non-Blanchable erythema. blisters forming on Right lower extremity anterior tibia. not infected cellulitis / edema on b/l le stable cont abx Tx.Plan: Apply Moisture Barrier Paste to Sacrum R and L gluteal cheeks. Cover with Optifoam drsgs. Change every 3 days and prn. Apply Betadine to dry eschar metatarsals both feet Daily. Apply Cavilon Skin Barrier to both heels. Cover each heel with Optifoam drsgs. Change every 7days and prn. Reposition at least every 2hours or as tolerated. Off-load heels with pillow. right leg hematoma stable critically ill and edema on right leg has compromised dermis over the hematoma. will likely need debridement once improved (97) COVID-19 Assessment & Plan: ++ on vent weaning abx as per ID (98) Respiratory failure Assessment & Plan: not able to wean safely will plan for trach case discussed with medical team, pulm, icu. recommended to trach given medical condition. medically indicated and recommended. s/p trach 9/30 s/p trach more comfortable less agitated on vent weaning (99) Pneumonia Juan Manuel Buckner Jan 15, 2020 14:36
--- NOTE | 2020-01-15 14:46 | NUR ---
[employer] SI: RESP FAILURE ETT/VENT SUPPORT AFIB RVR T. 99.1 HR 120 RR 18 B/P 100/55 AC 18 TV 600 FIO2 40% PEEP 5 WBC 2.6 NA 155 BUN 43 CR 2.2 ALB 1.8 IS: IVF D5NS @ 75ML/HR CARDIZEM GTT CEFEPIME IV PROTONIX IV FLAGYL GT ICU STATUS
--- NOTE | 2020-01-15 15:30 | NUR ---
NURSE NOTES: Pt was administered Morphine 4mg IVP and Versed 2mg IVP per PRN orders for severe pain and anxiety, as pt is noted to be in distress and very restless, with facial grimacing, pulling on bed/sheets, tachycardic and tachypneic.
--- NOTE | 2020-01-15 16:00 | NUR ---
NURSE NOTES: Pt was seen by Dr. Dumont. Per MD instructions, order was placed to edit tube feeding according to string winding machine operator/nutrition consult recommendation, which is Glucerna 1.5 at goal rate of 40ml/hour. Pt is tolerating feeding well with zero residual.
--- NOTE | 2020-01-15 17:00 | NUR ---
NURSE NOTES: Dr. Keen is at the nurse's station. Per , plan for thoracentesis by IR for tomorrow.
--- NOTE | 2020-01-15 17:02 | Cardiology Report ---
APPROVED REPORT EKG Measurement Heart [id number] <Conclusion> Atrial fibrillation with rapid ventricular response Low voltage QRS Nonspecific T wave abnormality Abnormal ECG
--- NOTE | 2020-01-15 17:46 | NUR ---
INSURANCE CLINICALS AND REVIEWS HAVE BEEN FAXED TO: [facility] PH: [phone] NEL FARAH FX: [phone]
--- NOTE | 2020-01-15 18:00 | NUR ---
NURSE NOTES: Pt had BM x1, large/soft/pasty/dark brown. Pt was cleaned, sacral dressing was changed, gown/bed linens were changed. Oral care was done. Pt was repositioned with bilateral extremities elevated on pillows.
--- NOTE | 2020-01-15 19:30 | NUR ---
NURSE HAND-OFF REPORT: Latest Vital Signs: Temperature 100.6 , Pulse 102, B/P 125 /92 , Respiratory Rate 20 , O2 SAT 99 , Trach to vent, Shiley 8, with settings AC18, VT600, Peep 5, FIO2 40% at 100% O2Sat. Vital Sign Comment: Pt remains on Cardizem drip at 10mg/hr. EKG Rhythm: Atrial Fibrillation Rhythm change?: N Notified?: N -MD Gaviota UNDERWOOD Response: Latest Abreu Fall Score: 75 Fall Risk: High Risk Safety Measures: Call light Within Reach, Bed Alarm Zone 1, Side Rails Side Rails x3, Bed position Low and Locked. Fall Precautions: Yellow Socks Yellow Gown Door Sign Patient Fall Education Report given to Bre COHEN. Endorsed plan of care.
--- NOTE | 2020-01-15 19:31 | NUR ---
NURSE NOTES: Received patient from NOEL Galvan. Will continue plan of care.
--- NOTE | 2020-01-15 20:00 | NUR ---
NURSE NOTES: Patient is trach'd; Shiley 8 to vent setting of AC:18, TV:600, FiO2:40%, PEEP:5, O2sat:100%. She is easily awakens to stimuli. Left nare NGT running Glucerna 1.5 @ 40ml/hr goal of 60ml/hr. GT patent and flushing well. Lockett catheter in place and draining. Right leg ulcer dressing dry and intact and awaiting wound consult. DIGITAL COORDINATOR restraints in place for safety and prevent from pulling on lines and tubing; ROM and skin assessed. Isolation precautions noted. Will continue plan of care.
--- NOTE | 2020-01-15 20:09 | General Progress Note ---
Subjective ROS Limited/Unobtainable: Yes Allergies: Coded Allergies: ERYTHROMYCIN BASE (Verified Allergy, Severe, 12/12/19) HALOPERIDOL (Verified Allergy, Unknown, 12/12/19) VANCOMYCIN (Unverified Adverse Reaction, Intermediate, Shortness of Breath, 12/12/19) Objective Last 24 Hour Vital Signs Date Time Temp Pulse Resp B/P (MAP) Pulse Ox O2 Delivery O2 Flow Rate FiO2 01/15/20 19:00 100.6 110 20 125/92 (103) 99 01/15/20 18:00 95 18 108/62 (77) 100 01/15/20 17:13 107 112/59 01/15/20 17:00 113 18 113/57 (75) 100 01/15/20 16:00 40 01/15/20 16:00 109 18 112/59 (76) 100 01/15/20 16:00 Mechanical Ventilator 01/15/20 16:00 107 01/15/20 15:59 99.1 01/15/20 15:33 108 18 107/65 100 01/15/20 15:18 115 18 40 01/15/20 15:03 108 18 107/65 100 01/15/20 15:00 107 18 100/61 (74) 100 01/15/20 14:00 108 18 107/65 (79) 100 01/15/20 13:00 107 100/55 (70) 100 01/15/20 12:30 117 111/75 (87) 100 01/15/20 12:21 120 118/69 01/15/20 12:00 40 01/15/20 12:00 100 01/15/20 12:00 99.1 120 109/53 (71) 100 01/15/20 12:00 Mechanical Ventilator 01/15/20 11:24 116 18 40 01/15/20 11:00 120 118/69 (85) 100 01/15/20 10:30 116 120/68 (85) 100 01/15/20 10:20 99.1 01/15/20 10:00 131 140/71 (94) 100 01/15/20 10:00 100 01/15/20 09:30 122 109/74 (86) 99 01/15/20 09:00 0 123/76 (92) 96 01/15/20 08:40 104 20 40 40 01/15/20 08:30 93 100/55 (70) 96 01/15/20 08:00 96 01/15/20 08:00 99.0 99 102/52 (69) 100 01/15/20 08:00 40 01/15/20 08:00 Mechanical Ventilator 01/15/20 07:28 98 19 40 01/15/20 07:00 103 20 108/64 (79) 96 01/15/20 06:00 99.1 01/15/20 06:00 99.1 140 76 01/15/20 05:42 135 132/96 01/15/20 05:00 137 78 01/15/20 04:00 137 01/15/20 04:00 142 21 148/86 (106) 97 01/15/20 04:00 Mechanical Ventilator 01/15/20 04:00 40 01/15/20 03:00 148 21 125/93 (104) 90 01/15/20 02:59 135 24 40 01/15/20 02:00 142 22 132/96 (108) 87 01/15/20 02:00 100.7 01/15/20 01:00 144 23 130/75 (93) 91 01/15/20 00:59 127 138/83 01/15/20 00:00 100.7 151 17 113/21 (51) 92 01/15/20 00:00 147 01/15/20 00:00 40 01/15/20 00:00 Mechanical Ventilator 01/14/20 23:11 127 21 40 01/14/20 23:00 141 22 138/83 (101) 98 01/14/20 22:30 100.7 01/14/20 22:13 115 18 100/76 100 01/14/20 22:00 135 24 134/83 (100) 99 01/14/20 21:00 121 21 124/60 (81) Intake and Output 01/14/20 01/15/20 19:00 07:00 Intake Total 1171.42937 ml 1690.0 ml Output Total 1450 ml 300 ml Balance -278.39859 ml 1390.0 ml Free Water 50 ml 50 ml IV Total 591.83437 ml 980.0 ml Tube Feeding 530 ml 660 ml Output Urine Total 1450 ml 300 ml # Bowel Movements 2 Laboratory Tests 01/15/20 05:33: White Blood Count 2.6L, Red Blood Count 2.80L, Hemoglobin 8.3L, Hematocrit 26.6L , Mean Corpuscular Volume 95, Mean Corpuscular Hemoglobin 29.5, Mean Corpuscular Hemoglobin Concent 31.1L, Red Cell Distribution Width 21.5H, Platelet Count 142L , Mean Platelet Volume 6.7, Neutrophils (%) (Auto) , Lymphocytes (%) (Auto) , Monocytes (%) (Auto) , Eosinophils (%) (Auto) , Basophils (%) (Auto) , Differential Total Cells Counted 100, Neutrophils % (Manual) 61, Lymphocytes % (Manual) 25, Monocytes % (Manual) 12H, Eosinophils % (Manual) 2, Basophils % (Manual) 0, Band Neutrophils 0, Platelet Estimate DecreasedL, Platelet Morphology Normal, Hypochromasia 2+, Anisocytosis 2+, Sodium Level 155H, Potassium Level 4.3, Chloride Level 118H, Carbon Dioxide Level 29, Blood Urea Nitrogen 43H, Creatinine 2.2H, Estimat Glomerular Filtration Rate 22.3, Glucose Level 134H, Calcium Level 8.8, Total Bilirubin 0.7, Aspartate Amino Transf (AST/SGOT) 13L, Alanine Aminotransferase (ALT/SGPT) 8L, Alkaline Phosphatase 74, Total Protein 7.7, Albumin 1.8L, Globulin 5.9, Albumin/Globulin Ratio 0.3L Height (Feet): 5 Height (Inches): 6.00 Weight (Pounds): 343 General Appearance: lethargic, confused, morbidly obese, other - trac h vent Cardiovascular: regularly irregular Respiratory/Chest: rhonchi - bilaterally Abdomen: soft Edema: moderate edema Neurologic: unresponsive Assessment/Plan Problem List: (1) Schizophrenia ICD Codes: F20.9 - Schizophrenia, unspecified SNOMED: 73867245 (2) GERD (gastroesophageal reflux disease) ICD Codes: K21.9 - Gastro-esophageal reflux disease without esophagitis SNOMED: 543979646 (3) Lymphadema (4) Smoker ICD Codes: F17.200 - Nicotine dependence, unspecified, uncomplicated SNOMED: 26914938 (5) Atrial fibrillation with rapid ventricular response ICD Codes: I48.91 - Unspecified atrial fibrillation SNOMED: 738525863102072 (6) CKD (chronic kidney disease) stage 3, GFR 30-59 ml/min ICD Codes: N18.3 - Chronic kidney disease, stage 3 (moderate) SNOMED: 515569537 (7) NATALIE (acute kidney injury) ICD Codes: N17.9 - Acute kidney failure, unspecified SNOMED: 0607663, 22964669 (8) COPD (chronic obstructive pulmonary disease) ICD Codes: J44.9 - Chronic obstructive pulmonary disease, unspecified SNOMED: 46699378 (9) UGI bleed ICD Codes: K92.2 - Gastrointestinal hemorrhage, unspecified SNOMED: 40776501 (10) Dysphagia ICD Codes: R13.10 - Dysphagia, unspecified SNOMED: 93946757, 162063472 (11) UTI (urinary tract infection) ICD Codes: N39.0 - Urinary tract infection, site not specified SNOMED: 48812601 (12) ESBL (extended spectrum beta-lactamase) producing bacteria infection ICD Codes: A49.9 - Bacterial infection, unspecified; Z16.12 - Extended spectrum beta lactamase (ESBL) resistance SNOMED: 886189891 (13) Dehydration ICD Codes: E86.0 - Dehydration SNOMED: 32042415 (14) CHF exacerbation ICD Codes: I50.9 - Heart failure, unspecified SNOMED: 360758344, 33838253896229 (15) Acute respiratory failure ICD Codes: J96.00 - Acute respiratory failure, unspecified whether with hypoxia or hypercapnia SNOMED: 50073480 (16) COVID-19 ICD Codes: U07.1 - COVID-19 SNOMED: 471700567 (17) Pneumonia ICD Codes: J18.9 - Pneumonia, unspecified organism SNOMED: 359928439 Qualifiers: (18) Hematoma of lower leg ICD Codes: S80.10XA - Contusion of unspecified lower leg, initial encounter SNOMED: 447989096 (19) CKD (chronic kidney disease) stage 3, GFR 30-59 ml/min ICD Codes: N18.3 - Chronic kidney disease, stage 3 (moderate) SNOMED: 724950987 (20) Pancytopenia ICD Codes: D61.818 - Other pancytopenia SNOMED: 817781038 Status: stable Assessment/Plan: resp distress, icu, trach, vent, natalie on ckd,,now stable, I/O reviewed, hematoma RLE stop eliquis , lovenox now iv protonix, rx esbl and + vre uti,g+ cocci , remains high risk, d/w psych, ID, cardiology, chf and on lasix ,covid neg prior now +, grave prognosis, fungemia treated with micafungin likely will be unable to wean for a long time, agitated when tried to wean , ,all lab and orders reviewed , no active bleeding , low Hb to transfuse 01/08 preop, done, , reculture, d/w dr curran needs trach, done,Needs gastrostomy unable to sign, done Dr Curran thinks that she might be able to wean gradually after trach placed, febrile again and infiltrates, trach scheduled 01/08, done, pancytopenia stable may be from sepsis or meds(remdesivir, chlorpromazine, micafungin, linezolid), posssible primary BM disease, to observe ,immunofixation ordered,negative, hypernatremia and free water gt,D5w iv stop lasix titrate sedatives , some distress earlier short cpap trial, cardizem drip for rapid afib icu time 32 min Benjamin Dumont MD Jan 15, 2020 20:09
[2020-01-15] MEDS: Dyna-Hex 2% Top Sol 2oz TOPIC SCH (21:02)
[2020-01-15] MEDS: Miralax 17gm pkt NG SCH (21:02)
--- NOTE | 2020-01-15 22:10 | NUR ---
NURSE NOTES: RECEIVED PATIENT FROM NOEL GABRIEL. PATIENT ON TRACH TO VENT, AC 18/TV 600/FIO2 40%/PEEP5, O2 SATURATION 100%, HR 130'S/MIN A-FIB, G TUBE INTACT AND PATENT, HELD FEEDING STATUS, F/C INTACT AND PATENT, DARK CESAR COLOR UR5INE OUTED, ON P200 BED, LOWER BED POSITION, ON BED ALARM AND LOCKED, WILL CONTINUE TO MONITOR.
--- NOTE | 2020-01-15 23:17 | Cardiology Progress Note ---
Subjective DATE OF SERVICE: Jan 15, 2020 Doing poorly - remains in ICU in critical condition with guarded prognosis. Remains on vent support - failed weaning trials; now s/p trach BP range remaining low normal range. Remains COVID19 positive. Monitor: AFIb with rapid rates - now on cardizem gtts. Venous Duplex: negative for DVT Renal fxn and free water deficit worsening CXR (01/15/20) no change in bilateral infiltrates/edema and eff'n - s/p trach Objective Last 24 Hour Vital Signs Date Time Temp Pulse Resp B/P (MAP) Pulse Ox O2 Delivery O2 Flow Rate FiO2 01/15/20 22:56 120 18 111/74 98 01/15/20 22:26 139 22 130/90 100 01/15/20 22:00 138 23 136/102 (113) 95 01/15/20 21:04 135 24 40 01/15/20 21:00 100.3 132 126/62 (83) 100 01/15/20 20:30 123 118/61 (80) 99 01/15/20 20:00 40 01/15/20 20:00 111 107/62 (77) 99 01/15/20 20:00 Mechanical Ventilator 01/15/20 19:30 114 125/65 (85) 100 01/15/20 19:19 111 01/15/20 19:00 100.6 110 20 125/92 (103) 99 01/15/20 18:00 95 18 108/62 (77) 100 01/15/20 17:13 107 112/59 01/15/20 17:00 113 18 113/57 (75) 100 01/15/20 16:00 40 01/15/20 16:00 109 18 112/59 (76) 100 01/15/20 16:00 Mechanical Ventilator 01/15/20 16:00 107 01/15/20 15:59 99.1 01/15/20 15:33 108 18 107/65 100 01/15/20 15:18 115 18 40 01/15/20 15:03 108 18 107/65 100 01/15/20 15:00 107 18 100/61 (74) 100 01/15/20 14:00 108 18 107/65 (79) 100 01/15/20 13:00 107 100/55 (70) 100 01/15/20 12:30 117 111/75 (87) 100 01/15/20 12:21 120 118/69 01/15/20 12:00 40 01/15/20 12:00 100 01/15/20 12:00 99.1 120 109/53 (71) 100 01/15/20 12:00 Mechanical Ventilator 01/15/20 11:24 116 18 40 01/15/20 11:00 120 118/69 (85) 100 01/15/20 10:30 116 120/68 (85) 100 01/15/20 10:20 99.1 01/15/20 10:00 131 140/71 (94) 100 01/15/20 10:00 100 01/15/20 09:30 122 109/74 (86) 99 01/15/20 09:00 0 123/76 (92) 96 01/15/20 08:40 104 20 40 40 01/15/20 08:30 93 100/55 (70) 96 01/15/20 08:00 96 01/15/20 08:00 99.0 99 102/52 (69) 100 01/15/20 08:00 40 01/15/20 08:00 Mechanical Ventilator 01/15/20 07:28 98 19 40 01/15/20 07:00 103 20 108/64 (79) 96 01/15/20 06:00 99.1 01/15/20 06:00 99.1 140 76 01/15/20 05:42 135 132/96 01/15/20 05:00 137 78 01/15/20 04:00 137 01/15/20 04:00 142 21 148/86 (106) 97 01/15/20 04:00 Mechanical Ventilator 01/15/20 04:00 40 01/15/20 03:00 148 21 125/93 (104) 90 01/15/20 02:59 135 24 40 01/15/20 02:00 142 22 132/96 (108) 87 01/15/20 02:00 100.7 01/15/20 01:00 144 23 130/75 (93) 91 01/15/20 00:59 127 138/83 01/15/20 00:00 100.7 151 17 113/21 (51) 92 01/15/20 00:00 147 01/15/20 00:00 40 01/15/20 00:00 Mechanical Ventilator ROS: unchanged from 12/12/19 HEENT: Orally intubated, Mechanically Ventilated, Thin secretions ET Tube, other - NGtube RHYTHM: NSR, ST LUNGS: diminished breath sounds, right-sided rhonchi CARDIAC: normal S1 and S2, irregularly irregular ABDOMEN: other - obese EXTREMITIES: moderate edema - mostly non pitting, other - hematoma right leg Laboratory Tests Test 01/15/20 05:33 White Blood Count 2.6 K/UL (4.8-10.8) L Red Blood Count 2.80 M/UL (4.20-5.40) L Hemoglobin 8.3 G/DL (12.0-16.0) L Hematocrit 26.6 % (37.0-47.0) L Mean Corpuscular Volume 95 FL (80-99) Mean Corpuscular Hemoglobin 29.5 PG (27.0-31.0) Mean Corpuscular Hemoglobin Concent 31.1 G/DL (32.0-36.0) L Red Cell Distribution Width 21.5 % (11.6-14.8) H Platelet Count 142 K/UL (150-450) L Mean Platelet Volume 6.7 FL (6.5-10.1) Neutrophils (%) (Auto) % (45.0-75.0) Lymphocytes (%) (Auto) % (20.0-45.0) Monocytes (%) (Auto) % (1.0-10.0) Eosinophils (%) (Auto) % (0.0-3.0) Basophils (%) (Auto) % (0.0-2.0) Differential Total Cells Counted 100 Neutrophils % (Manual) 61 % (45-75) Lymphocytes % (Manual) 25 % (20-45) Monocytes % (Manual) 12 % (1-10) H Eosinophils % (Manual) 2 % (0-3) Basophils % (Manual) 0 % (0-2) Band Neutrophils 0 % (0-8) Platelet Estimate Decreased L Platelet Morphology Normal Hypochromasia 2+ Anisocytosis 2+ Sodium Level 155 MMOL/L (136-145) H Potassium Level 4.3 MMOL/L (3.5-5.1) Chloride Level 118 MMOL/L (98-107) H Carbon Dioxide Level 29 MMOL/L (21-32) Blood Urea Nitrogen 43 mg/dL (7-18) H Creatinine 2.2 MG/DL (0.55-1.30) H Estimat Glomerular Filtration Rate 22.3 mL/min (>60) Glucose Level 134 MG/DL (74-106) H Calcium Level 8.8 MG/DL (8.5-10.1) Total Bilirubin 0.7 MG/DL (0.2-1.0) Aspartate Amino Transf (AST/SGOT) 13 U/L (15-37) L Alanine Aminotransferase (ALT/SGPT) 8 U/L (12-78) L Alkaline Phosphatase 74 U/L (46-116) Total Protein 7.7 G/DL (6.4-8.2) Albumin 1.8 G/DL (3.4-5.0) L Globulin 5.9 g/dL Albumin/Globulin Ratio 0.3 (1.0-2.7) L Microbiology Date/Time Source Procedure Growth Status 01/15/20 01:20 Nasopharynx SARS-CoV-2 RdRp Gene Assay - Final Complete 01/13/20 22:30 Sputum Gram Stain Pending Resulted 01/13/20 22:30 Sputum Culture - Preliminary Gram Negative Bacillus 1 Resulted Assessment/Plan Assessment/Plan CRITICAL AND GUARDED Acute respiratory failure - s/p trach Acute on chronic respiratory acidosis AFiB with labile heart rates, and now persistent RVR. CHF, ac/chr diastolic BLE edema Sepsis with shock obesity COPD with bronchospasm Acute renal failure - worsening Pleural effusion GI bleeding Anemia - multifactorial, now worse Covid 19 PNA Hypokalemia Dehydration/hypernatremia worsened Hypertension/HHD with labile BP - now stable range. Vent support Advance beta yves and start IV cardizem gtts. PRBC transfusion for hb below 7gm/dl Monitor acid/base parameters. 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 Agree with DNR Jerome Meek MD Jan 15, 2020 23:17
--- NOTE | 2020-01-15 23:19 | NUR ---
NURSE NOTES: CALLED BACK FROM DR. MARCELO, RECEIVED NEW ORDER, WILL CARRY OUT.
[2020-01-15] MEDS ORDERED: dilTIAZem HCl 25mg/5ml Inj IVP ONE (23:30)
--- NOTE | 2020-01-15 23:36 | Psych Consult Progress Note ---
Psychiatry Progress Note Psychiatry Progress Note Subjective less agitated and on bilat restraints. pt is on multiple meds as well as antibiotics Medications Current Medications Medications (Trade) Dose Ordered Sig/Shiraz Route PRN Reason Start Time Stop Time Status Last Admin Dose Admin Acetaminophen (Tylenol) 650 mg Q4H PRN GT Temp >100.5 01/12/20 10:00 02/11/20 09:59 01/13/20 13:38 Acetaminophen (Tylenol) 650 mg Q4H PRN GT Mild Pain (Pain Scale 1-3) 01/12/20 10:00 02/11/20 09:59 01/15/20 05:41 Acetazolamide (Diamox) 500 mg TWICE A DAY NG 01/02/20 18:00 02/01/20 17:59 01/15/20 17:12 Albuterol Sulfate (Proventil MDI) 2 puff Q4H PRN INH Shortness of Breath 12/24/19 10:30 03/23/20 10:29 01/12/20 09:44 Bacitracin (Bacitracin) 2 applic EVERY 12 HOURS TOPIC 01/06/20 21:00 03/12/20 08:59 01/15/20 21:03 Cefepime HCl 1 gm/ Dextrose 50 ml @ 100 mls/hr Q12HR IVPB 01/12/20 21:00 01/19/20 20:59 01/15/20 21:02 Chlorhexidine Gluconate (Jessie-Hex 2%) 1 applic DAILY@1999 TOPIC 12/24/19 20:00 03/23/20 19:59 01/15/20 21:02 Clotrimazole (Lotrimin) 1 applic EVERY 12 HOURS TOPIC 01/05/20 09:00 03/12/20 08:59 01/15/20 21:03 Dextrose 1,000 ml @ 75 mls/hr [id number] IV 01/14/20 18:00 02/13/20 16:29 01/15/20 21:04 Diltiazem HCl 125 ml @ 0 mls/hr Q24H IVPB 01/14/20 18:00 01/16/20 17:59 01/15/20 15:40 Docusate Sodium (Colace) 100 mg BID NG 12/25/19 09:00 01/24/20 08:59 01/15/20 09:39 Enoxaparin Sodium (Lovenox) 60 mg DAILY SUBQ 01/13/20 12:00 04/12/20 11:59 01/15/20 09:49 Lorazepam (Ativan) 1 mg EVERY 8 HOURS GT 01/14/20 18:00 01/21/20 17:59 01/15/20 22:26 Magnesium Hydroxide (Mom) 30 ml HSPRN PRN NG Constipation 12/22/19 15:15 01/21/20 15:14 01/02/20 22:20 Metoclopramide HCl (Reglan) 5 mg Q6H IVP 01/05/20 09:15 02/04/20 09:14 01/15/20 21:02 Metoprolol Tartrate (Lopressor) 50 mg Q6HR NG 01/13/20 18:00 04/12/20 17:59 01/15/20 17:13 Metronidazole (Flagyl) 500 mg EVERY 8 HOURS ORAL 01/12/20 22:00 01/19/20 21:59 01/15/20 22:26 Midazolam HCl (Versed 2mg/2ml vial) 2 mg Q1H PRN IVP Agitation 01/10/20 17:15 01/17/20 17:14 01/15/20 15:29 Minocycline HCl (Minocin) 100 mg Q12HR ORAL 01/10/20 21:00 01/17/20 20:59 01/15/20 21:03 Morphine Sulfate (Morphine Sulfate) 2 mg Q4H PRN IVP Moderate Pain (Pain Scale 4-6) 01/14/20 12:00 01/21/20 11:59 01/14/20 17:54 Morphine Sulfate (Morphine Sulfate) 4 mg Q4H PRN IVP Severe Pain (Pain Scale 7-10) 01/14/20 12:00 01/21/20 11:59 01/15/20 15:29 Pantoprazole (Protonix) 40 mg EVERY 12 HOURS IVP 01/01/20 21:00 01/31/20 20:59 01/15/20 21:03 Polyethylene Glycol (Miralax) 17 gm BEDTIME NG 12/22/19 21:00 01/18/20 20:59 01/15/20 21:02 Potassium Chloride (K-Dur) 40 meq EVERY 12 HOURS NG 01/05/20 11:45 04/04/20 11:14 01/15/20 21:03 Quetiapine Fumarate (SEROqueL) 150 mg EVERY 8 HOURS ORAL 01/11/20 22:00 02/25/20 21:59 01/15/20 22:27 Neurological/Psychiatric: Reports: anxiety, depressed, emotional problems Allergies: Coded Allergies: ERYTHROMYCIN BASE (Verified Allergy, Severe, 12/12/19) HALOPERIDOL (Verified Allergy, Unknown, 12/12/19) VANCOMYCIN (Unverified Adverse Reaction, Intermediate, Shortness of Breath, 12/12/19) Objective Data Height (Feet): 5 Height (Inches): 6.00 Weight (Pounds): 343 General Appearance: lethargic, confused, morbidly obese, other - trac h vent Additional Comments: confused. Mood is anxious. Affect is flat. Assessment/Plan Problem List: (1) Opiate dependence (2) Schizophrenia Status: stable Assessment/Plan: seroquel 150 tid ativan 1mg q 8 hrs bilat restraints. Harris Ballesteros MD Jan 15, 2020 23:36
--- NOTE | 2020-01-15 23:50 | NUR ---
NURSE NOTES: HR 105/MIN A-FIB AFTER CARDIZEM 20MG BY IVP ORDERED, ONGOING IV FLUID D5W AT 75ML/HR VIA PICC LINE, WILL CONTINUE TO MONITOR.
[2020-01-16] VITALS (33 sets, daily range): BP systolic 78–148; BP diastolic 53–114
--- NOTE | 2020-01-16 00:23 | NUR ---
NURSE NOTES: HR 90'S/MIN A-FIB, ON CARDIZEM DRIP 12.5MG/HR PER PROTOCOLS, ONGOING G TUBE FEEDING GLUCERNA 1.5 AT 60ML/HR ORDERED, NO RESIDUE NOTED, KEPT HOB 30 DEGREES AND ASPIRATION PRECAUTION, WILL CONTINUE TO MONITOR.
[2020-01-16] MEDS: Metoclopramide 10mg/2ml Inj IVP SCH ×4 (02:58→21:25)
--- NOTE | 2020-01-16 03:10 | NUR ---
NURSE NOTES: HR 120'S/MIN A-FIB NOTED, CARDIZEM DRIP 15MG/HR VIA PICC LINE AT THIS TIME, WILL CONTINUE TO MONITOR.
[2020-01-16] MEDS: Midazolam 2mg/2ml Inj IVP PRN ×5 (03:50→23:08)
[2020-01-16] MEDS: dilTIAZem Premix 125mg/125ml 125 ML IVPB SCH ×3 (03:50→20:11)
--- NOTE | 2020-01-16 04:20 | NUR ---
NURSE NOTES: LE: GIVEN VERSED 2MG BY IVP FOR AGITATION AT 0350AM. PATIENT DECREASED AGITATION, MORNING CARE AND ORAL CARE WAS DONE, WILL CONTINUE TO MONITOR.
[2020-01-16 05:01] LABS: HEMOGLOBIN 8.1 G/DL (12.0-16.0); MEAN CORPUSCULAR VOLUME 95 FL (80-99); PLATELET COUNT 143 K/UL (150-450); RED BLOOD COUNT 2.74 M/UL (4.20-5.40); RED CELL DISTRIBUTION WIDTH 21.2 % (11.6-14.8); WHITE BLOOD COUNT 2.7 K/UL (4.8-10.8)
[2020-01-16 05:28] LABS: CALCIUM 8.3 MG/DL (8.5-10.1); CREATININE 1.8 MG/DL (0.55-1.30); POTASSIUM 4.4 MMOL/L (3.5-5.1)
[2020-01-16] MEDS: Metoprolol Tartrate 50mg tab NG SCH ×4 (05:34→23:08)
[2020-01-16] MEDS: LORazepam 1mg tab GT SCH ×3 (05:34→21:26)
[2020-01-16] MEDS: metroNIDAZOLE 500mg tab ORAL SCH ×3 (05:34→21:26)
--- NOTE | 2020-01-16 06:10 | NUR ---
NURSE NOTES: HELD FEEDING STATUS FOR PROCEDURE, NO ACUTE DISTRESS NOTED AT THIS TIME.
--- NOTE | 2020-01-16 06:43 | Pulmonolgy Critical Care Note ---
Luz Bowen MICROBIOLOGY ANALYST 01/16/20 0642: Critical Care - Asmt/Plan Assessment/Plan: ASSESSMENT acute hypoxemic hypercapnic resp failure, requiring intubation 12/22 s/p trach 01/08 COVID 19 PNA sepsis fungemia UTI with E coli ESBL UTI VRE possible aspiration PNA - s/p treatment Moderate R pleural effusion COPD Atrial fibrillation with RVR CHF Acute renal failure on CKD Severe anemia dysphagia, s/p PEG 01/08 Thrombocytopenia Status post ground fall Tobacco dependency Morbid obesity probable GARY R knee edema and hematoma, possible cellulitis Hyper Na due to free water deficit PLAN OF CARE s/p trach, cont PS trials as tolerated-not tolerated developed tachycardia /A fib with RVR now on Cardizem gtt , weaning trial on hold monitor ABG monitor effusion , CXR 12/15 no change repeated COVID 19 01/14 NGT s/p steroids IV ( started 12/23) continue for total of 10 days till 01/02 s/p Remdesivir (started 12/24 ), dc 12/30 initial diagnoses with COVID 19 at [facility] 11/29, was not hypoxic and not intubated, was not treated with Remdesivivr , only received empiric abx for PNA DVT prophylaxis with Lovenox on diuresis with Lasix, decreased by Dr. Dumont monitor volumes closely creat remains stable consider d/c diamox afib rate control - now on Cardizem gtt GI prophylaxis with PPI s/p PEG 01/09, asp precautions, SCX 01/07 + ACB MDR BCX 01/07 NGTD UCX 01/07 NGT stool C dif 01/10 NGT UA 01/12 unremarkable remains febrile s/p Polymyxin , Zyvox and Zosyn -as per ID recs, now on Minocycline or possible cellulitis R leg as well as cefepime and F lagyl severely leukopenic ? due to meds vs ? primary BM disease monitor counts immunofixation screen unremarkable transfuse to keep Hgb > 7 , s/p transfusion 01/13 previously evaluated by bioethics -> DNR/DNI status appropriate case discussed and evaluated by supervising physician Critical Care - Objective Last 24 Hour Vital Signs Date Time Temp Pulse Resp B/P (MAP) Pulse Ox O2 Delivery O2 Flow Rate FiO2 01/16/20 05:34 106 84/68 01/16/20 04:00 Mechanical Ventilator 01/16/20 04:00 98.7 109 24 104/64 (77) 99 01/16/20 04:00 40 01/16/20 03:30 103 26 40 01/16/20 03:30 111 24 107/67 (80) 99 01/16/20 03:01 115 01/16/20 03:00 104 23 104/64 (77) 100 01/16/20 02:30 100 21 100/64 (76) 100 01/16/20 02:00 98 22 109/61 (77) 99 01/16/20 01:30 98 19 107/59 (75) 99 01/16/20 01:00 92 19 92/57 (69) 100 01/16/20 00:45 96 20 106/65 (79) 100 01/16/20 00:30 99 22 103/69 (80) 100 01/16/20 00:00 99.6 104 27 117/70 (86) 99 01/16/20 00:00 Mechanical Ventilator 01/16/20 00:00 40 01/16/20 00:00 104 01/15/20 23:45 123 21 122/53 (76) 98 01/15/20 23:41 125 110/66 01/15/20 23:41 125 110/66 01/15/20 23:30 121 25 115/66 (82) 99 01/15/20 23:15 117 18 98/72 (81) 100 01/15/20 23:00 123 18 111/74 (86) 100 01/15/20 23:00 98 24 40 01/15/20 22:56 120 18 111/74 98 01/15/20 22:26 139 22 130/90 100 01/15/20 22:00 138 23 136/102 (113) 95 01/15/20 21:04 135 24 40 01/15/20 21:00 100.3 132 126/62 (83) 100 01/15/20 20:30 123 118/61 (80) 99 01/15/20 20:00 40 01/15/20 20:00 111 107/62 (77) 99 01/15/20 20:00 Mechanical Ventilator 01/15/20 19:30 114 125/65 (85) 100 01/15/20 19:19 111 01/15/20 19:00 100.6 110 20 125/92 (103) 99 01/15/20 18:00 95 18 108/62 (77) 100 01/15/20 17:13 107 112/59 01/15/20 17:00 113 18 113/57 (75) 100 01/15/20 16:00 40 01/15/20 16:00 109 18 112/59 (76) 100 01/15/20 16:00 Mechanical Ventilator 01/15/20 16:00 107 01/15/20 15:59 99.1 01/15/20 15:33 108 18 107/65 100 01/15/20 15:18 115 18 40 01/15/20 15:03 108 18 107/65 100 01/15/20 15:00 107 18 100/61 (74) 100 01/15/20 14:00 108 18 107/65 (79) 100 01/15/20 13:00 107 100/55 (70) 100 01/15/20 12:30 117 111/75 (87) 100 01/15/20 12:21 120 118/69 01/15/20 12:00 40 01/15/20 12:00 100 01/15/20 12:00 99.1 120 109/53 (71) 100 01/15/20 12:00 Mechanical Ventilator 01/15/20 11:24 116 18 40 01/15/20 11:00 120 118/69 (85) 100 01/15/20 10:30 116 120/68 (85) 100 01/15/20 10:20 99.1 01/15/20 10:00 131 140/71 (94) 100 01/15/20 10:00 100 01/15/20 09:30 122 109/74 (86) 99 01/15/20 09:00 0 123/76 (92) 96 01/15/20 08:40 104 20 40 40 01/15/20 08:30 93 100/55 (70) 96 01/15/20 08:00 96 01/15/20 08:00 99.0 99 102/52 (69) 100 01/15/20 08:00 40 01/15/20 08:00 Mechanical Ventilator 01/15/20 07:28 98 19 40 01/15/20 07:00 103 20 108/64 (79) 96 Objective: CONDITION: critical General Appearance: morbidly obese , sedated, generalized anasarca ; on vent AC 600-18-40% PEEP 5 Lines, tubes and drains: LUE PICC new , intact HEENT: normocephalic, atraumatic, anicteric, Neck: trach with Shiley # 8, secretions moderate amount, yellow color, thick consistency Respiratory/Chest: chest wall non-tender, no accessory muscle use, BS overall clear, Cardiovascular/Chest: irregularly irregular - A fib . tachy , distant heart sounds, Abdomen: normal bowel sounds, non tender , obese, soft ; G tube with TF : Lockett Extremities: no calf tenderness, moderate edema - +3 BLE, R knee with large hematoma, edema, Skin Exam: warm/dry, multiple tattoos Neurologic: sedated Musculoskeletal: normal muscle bulk Micro: Microbiology Date/Time Source Procedure Growth Status 01/15/20 01:20 Nasopharynx SARS-CoV-2 RdRp Gene Assay - Final Complete 01/13/20 22:30 Sputum Gram Stain Pending Resulted 01/13/20 22:30 Sputum Culture - Preliminary Gram Negative Bacillus 1 Resulted Accucheck: 136 Critical Care - Subjective ROS Limited/Unobtainable: Yes Interval Events: remains on AC, no signs of resp distress weaning was hold due to AFIb with RVR CXR 01/14 unchanged findings on Cardizem gtt, also received a bolus as ordered by cardio fevers last night currently afebrile COVID 19 01/14 NGT Condition: critical IV Access: PICC - LUE intact EKG Rhythm: Atrial Fibrillation FI02: 40 Vent Support Breath Rate: 18 Vent Support Mode: AC Vent Tidal Volume: 600 Sputum Amount: Moderate PEEP: 5.0 PIP: 42 Drips: Cardizem gtt 15 mcg/hr Tube Feeding Amount: 0 I&O: Intake and Output 01/15/20 01/16/20 19:00 07:00 Intake Total 2377.5 ml 1360.000 ml Output Total 620 ml 750 ml Balance 1757.5 ml 610.000 ml Free Water 600 ml IV Total 1057.5 ml 810.000 ml Tube Feeding 720 ml 400 ml Other 150 ml Output Urine Total 620 ml 750 ml # Bowel Movements 1 CXR: 01/14-> Bilateral pleural effusions, mild hazy interstitial and airspace edema persists, unchanged. Cardiomegaly persists. Tracheostomy, left arm PICC again demonstrated. Findings are unchanged Colt Keen MD 01/16/20 1516: Critical Care - Asmt/Plan Assessment/Plan: Patient seen and examined with MICROBIOLOGY ANALYST and the above formulated assessment and plan. Time Spent (Minutes): 40 - cc Luz Bowen NP Jan 16, 2020 06:42 Colt Keen MD Jan 16, 2020 15:16
--- NOTE | 2020-01-16 07:10 | NUR ---
HAND-OFF: Report given to NOEL CHOU.
--- NOTE | 2020-01-16 08:00 | NUR ---
NURSE NOTES: Pt was assessed after receiving change of shift report from Anton RN. Pt is awake, however does not follow with eyes, is restless, with facial grimacing and impulsive, attempting to reach for IV lines/trach. Pt is on trach to vent, Shiley 8, with vent settings, AC18, VT600, Peep 5.0, FIO2 40% currently at 100% O2Sat. AFib on monitor worker, HR fluctuating from 110-120 bmp. OGT present, with feeding Glucerna 1.5 currently on hold in preparation for planned thoracentesis today. Lockett catheter is present, draining, dark doretha urine with heavy sedimentation. Skin alterations are noted including sacral skin tear and right lower extremity open wound. Pt is on pressure release mattress. Bed is locked, HOB at 30 degrees, three side rails up, and bed in lowest position. Bilateral soft wrist restraints are in place to prevent self-extubation; Skin and vascular integrity at restraint site remains within normal limits. HOB at 30degrees, bed locked/in lowest position, three side rails up. Will continue with plan of care.
[2020-01-16] MEDS: Pantoprazole Inj IVP SCH ×2 (08:41→20:01)
[2020-01-16] MEDS: Minocycline HCl 50mg cap ORAL SCH ×2 (08:42→21:25)
[2020-01-16] MEDS: Docusate 100mg/10ml Liq NG SCH ×2 (08:43→17:48)
[2020-01-16] MEDS: Enoxaparin 60mg Inj SUBQ SCH (08:43)
[2020-01-16] MEDS: Morphine Sulfate 4mg/ml Inj (IV USE ONLY) IVP PRN ×3 (08:44→17:48)
--- NOTE | 2020-01-16 08:44 | NUR ---
NURSE NOTES: Pt was administered Morphine 4mg IVP and Versed 2mg IVP per PRN orders for severe pain and agitation; pt is very restless, with facial grimacing, pulling on bed/sheets, tachycardic while on max Cardizem drip rate of 15mg/hr. All AM meds were administered, except for Colace held for diarrhea, and Lovenox held prior to thoracentesis today per Dr. Keen's instructions. Spoke with Joann from ultrasound regarding plan for thoracentesis; per Joann, will speak with radiologist and contact ICU for update if possible to do procedure today.
--- NOTE | 2020-01-16 09:51 | NUR ---
RADIOLOGY DEPT., CHEST X-RAY DONE.-P.DYE
--- NOTE | 2020-01-16 10:24 | General Progress Note ---
Subjective ROS Limited/Unobtainable: No Allergies: Coded Allergies: ERYTHROMYCIN BASE (Verified Allergy, Severe, 12/12/19) HALOPERIDOL (Verified Allergy, Unknown, 12/12/19) VANCOMYCIN (Unverified Adverse Reaction, Intermediate, Shortness of Breath, 12/12/19) Objective Last 24 Hour Vital Signs Date Time Temp Pulse Resp B/P (MAP) Pulse Ox O2 Delivery O2 Flow Rate FiO2 01/16/20 09:14 98.7 01/16/20 07:00 113 22 142/77 (98) 99 01/16/20 06:55 122 25 40 01/16/20 06:30 111 19 128/80 (96) 99 01/16/20 06:15 109 25 134/71 (92) 98 01/16/20 06:00 111 20 132/114 (120) 99 01/16/20 05:45 110 19 133/88 (103) 100 01/16/20 05:34 106 84/68 01/16/20 05:30 113 23 84/68 (73) 98 01/16/20 05:00 109 21 78/53 (61) 93 01/16/20 04:00 Mechanical Ventilator 01/16/20 04:00 98.7 109 24 104/64 (77) 99 01/16/20 04:00 40 01/16/20 03:30 103 26 40 01/16/20 03:30 111 24 107/67 (80) 99 01/16/20 03:01 115 01/16/20 03:00 104 23 104/64 (77) 100 01/16/20 02:30 100 21 100/64 (76) 100 01/16/20 02:00 98 22 109/61 (77) 99 01/16/20 01:30 98 19 107/59 (75) 99 01/16/20 01:00 92 19 92/57 (69) 100 01/16/20 00:45 96 20 106/65 (79) 100 01/16/20 00:30 99 22 103/69 (80) 100 01/16/20 00:00 99.6 104 27 117/70 (86) 99 01/16/20 00:00 Mechanical Ventilator 01/16/20 00:00 40 01/16/20 00:00 104 01/15/20 23:45 123 21 122/53 (76) 98 01/15/20 23:41 125 110/66 01/15/20 23:41 125 110/66 01/15/20 23:30 121 25 115/66 (82) 99 01/15/20 23:15 117 18 98/72 (81) 100 01/15/20 23:00 123 18 111/74 (86) 100 01/15/20 23:00 98 24 40 01/15/20 22:56 120 18 111/74 98 01/15/20 22:26 139 22 130/90 100 01/15/20 22:00 138 23 136/102 (113) 95 01/15/20 21:04 135 24 40 01/15/20 21:00 100.3 132 126/62 (83) 100 01/15/20 20:30 123 118/61 (80) 99 01/15/20 20:00 40 01/15/20 20:00 111 107/62 (77) 99 01/15/20 20:00 Mechanical Ventilator 01/15/20 19:30 114 125/65 (85) 100 01/15/20 19:19 111 01/15/20 19:00 100.6 110 20 125/92 (103) 99 01/15/20 18:00 95 18 108/62 (77) 100 01/15/20 17:13 107 112/59 01/15/20 17:00 113 18 113/57 (75) 100 01/15/20 16:00 40 01/15/20 16:00 109 18 112/59 (76) 100 01/15/20 16:00 Mechanical Ventilator 01/15/20 16:00 107 01/15/20 15:59 99.1 01/15/20 15:33 108 18 107/65 100 01/15/20 15:18 115 18 40 01/15/20 15:03 108 18 107/65 100 01/15/20 15:00 107 18 100/61 (74) 100 01/15/20 14:00 108 18 107/65 (79) 100 01/15/20 13:00 107 100/55 (70) 100 01/15/20 12:30 117 111/75 (87) 100 01/15/20 12:21 120 118/69 01/15/20 12:00 40 01/15/20 12:00 100 10/6/20 12:00 99.1 120 109/53 (71) 100 01/15/20 12:00 Mechanical Ventilator 01/15/20 11:24 116 18 40 01/15/20 11:00 120 118/69 (85) 100 01/15/20 10:30 116 120/68 (85) 100 Intake and Output 01/15/20 01/16/20 19:00 07:00 Intake Total 2377.5 ml 1510.000 ml Output Total 620 ml 850 ml Balance 1757.5 ml 660.000 ml Free Water 600 ml IV Total 1057.5 ml 900.000 ml Tube Feeding 720 ml 400 ml Other 210 ml Output Urine Total 620 ml 850 ml # Bowel Movements 1 Laboratory Tests 01/16/20 04:15: White Blood Count 2.7L, Red Blood Count 2.74L, Hemoglobin 8.1L, Hematocrit 26.0L , Mean Corpuscular Volume 95, Mean Corpuscular Hemoglobin 29.6, Mean Corpuscular Hemoglobin Concent 31.2L, Red Cell Distribution Width 21.2H, Platelet Count 143L , Mean Platelet Volume 7.0, Neutrophils (%) (Auto) , Lymphocytes (%) (Auto) , Monocytes (%) (Auto) , Eosinophils (%) (Auto) , Basophils (%) (Auto) , Differential Total Cells Counted 100, Neutrophils % (Manual) 56, Lymphocytes % (Manual) 32, Monocytes % (Manual) 11H, Eosinophils % (Manual) 1, Basophils % (Manual) 0, Band Neutrophils 0, Nucleated Red Blood Cells 1, Platelet Estimate DecreasedL, Platelet Morphology Normal, Hypochromasia 1+, Anisocytosis 2+, Sodium Level 157H, Potassium Level 4.4, Chloride Level 121H, Carbon Dioxide Level 26, Anion Gap 10, Blood Urea Nitrogen 39H, Creatinine 1.8H, Estimat Glomerular Filtration Rate 28.0, Glucose Level 142H, Calcium Level 8.3L 01/16/20 08:42: Arterial Blood pH 7.416, Arterial Blood Partial Pressure CO2 36.6, Arterial Blood Partial Pressure O2 85.2, Arterial Blood HCO3 23.0, Arterial Blood Oxygen Saturation 94.9L, Arterial Blood Base Excess -1.3, [place] Test Positive Height (Feet): 5 Height (Inches): 6.00 Weight (Pounds): 343 General Appearance: no apparent distress EENT: normal ENT inspection Neck: supple Cardiovascular: normal rate Respiratory/Chest: decreased breath sounds Abdomen: hypoactive bowel sounds Extremities: non-tender Assessment/Plan Problem List: (1) CKD (chronic kidney disease) stage 3, GFR 30-59 ml/min ICD Codes: N18.3 - Chronic kidney disease, stage 3 (moderate) SNOMED: 426409902 (2) COPD (chronic obstructive pulmonary disease) ICD Codes: J44.9 - Chronic obstructive pulmonary disease, unspecified SNOMED: 59408891 (3) Smoker ICD Codes: F17.200 - Nicotine dependence, unspecified, uncomplicated SNOMED: 56938712 (4) GERD (gastroesophageal reflux disease) ICD Codes: K21.9 - Gastro-esophageal reflux disease without esophagitis SNOMED: 430845164 (5) Atrial fibrillation with RVR ICD Codes: I48.91 - Unspecified atrial fibrillation SNOMED: 565080394847783 Status: stable Assessment/Plan: pepcid fu H&H monitor labs bowel regimen fu cardiology recs icu care ppi cbc in am s/p Trach and PEG GTF monitor for residuals Mervin Victoria MD Jan 16, 2020 10:23
--- NOTE | 2020-01-16 10:36 | NUR ---
NURSE NOTES: ABGs were drawn while pt on AC vent settings; and results came back within normal range. Pt is now placed on CPAP 5, PS 8, FIO2 40%; HR remains tachycardic, HR fluctuating 120-140, despite Morphine 4mg IVP and Versed 2mg IVP given, while pt also remains on Cardizem drip at 15mg/hr to maintain HR below 100. Afib on shelter monitor.
--- NOTE | 2020-01-16 10:36 | NUR ---
RESPIRATORY NOTES PT placed on SBT - CPAP 5, PS 8, 40% PT exhibiting no current signs of respiratory distress. ABG to follow in an hour. NOEL marquis. Will continue to monitor.
[2020-01-16] MEDS ORDERED: Bacitracin Oint UD TOPIC SCH (10:39)
[2020-01-16] MEDS: Bacitracin Oint 15gm Tube TOPIC SCH ×2 (11:21→20:02)
--- NOTE | 2020-01-16 11:40 | NUR ---
RESPIRATORY NOTES SBT terminated @1140 due to elevated HR - 160bpm PT placed back onto previous vent settings. NOEL Galvan aware. Will continue to monitor.
--- NOTE | 2020-01-16 12:40 | NUR ---
NURSE NOTES: Pt was administered Morphine 4mg IVP and Versed 2mg IVP per PRN orders for severe pain and agitation; since pt is noted to be very restless, tachycardic, tachypneic; while maintained on Cardizem drip at 15mg/hr.
[2020-01-16 13:28] LABS: INR 1.1 (0.9-1.1)
--- NOTE | 2020-01-16 13:30 | Diagnostic Imaging Report ---
Indication: Shortness of breath Technique: One view of the chest Comparison: 01/15/2020 Findings: Bilateral interstitial and airspace infiltrates versus edema appears slightly increased from the prior exam. Right pleural effusion appears slightly increased. Left pleural fluid probably present, smaller than the right, stable. The heart remains enlarged. Tracheostomy, left arm PICC remain. Impression: Slightly increased pulmonary infiltrates versus edema and right pleural effusion, over one day
--- NOTE | 2020-01-16 14:24 | Infectious Diseases Prog Note ---
Assessment/Plan Assessment/Plan ASSESSMENT AND PLAN: 1. MDR acinetobacter pna - S-minocycline, I-colistin, polymyxin hx esbl e.coli uti/pyelonephritis, sepsis, leukocytosis, fevers mrsa and vre colonization, NATALIE, respiratory distress/failure Fungemia - + yeast in blood - ID still pending hx mrsa pna/acinetobacter pna hx VRE uti covid-19 infection right leg swelling and redness noted, ? cellulitis, ? infected hematoma, ? wound infection - minocycline - day # 7 for acinetobacter pna, plan on 10-14 day treatment course - cefepime and flagyl - day # 5 - zyvox held for pancytopenia - s/p micafungin - surveillance cultures ordered for fevers - f/u on cultures - s/p remdesivir, on dexamethasone - monitor labs and chest x-ray - ? debridement right leg per surgery when patient stable - d/w surgery, no intervention at this time - d/w RN - thoracentesis planned - fevers mildly improved - ? neutropenic, leukopenia better 2. Chronic kidney failure, acute renal failure. 3. COPD. 4. Pulmonary followup. 5. Renal followup. 6. History of falls. 7. Atrial fibrillation. Cardiology followup. 8. Obesity. 9. Gait disorder. 10. Schizophrenia. 11. Homeless. 12. Allergic to erythromycin, haloperidol, and vancomycin. 13. Social history is negative. 14. Family history is noncontributory. 15. MAR is noted. 16. Case discussed with RN. 17. Continue treatment per Dr. Dumont and consultants. Subjective Constitutional: Reports: other - + vent ; Denies: fever HEENT: Reports: congestion Respiratory: Reports: shortness of breath Cardiovascular: Denies: chest pain Gastrointestinal/Abdominal: Denies: nausea, vomiting, diarrhea Genitourinary: Reports: other - + trivedi Neurologic: Denies: headache Psychiatric: Denies: depression Skin: Denies: rash Hematologic: Denies: bleeding Musculoskeletal: Denies: pain Allergies: Coded Allergies: ERYTHROMYCIN BASE (Verified Allergy, Severe, 12/12/19) HALOPERIDOL (Verified Allergy, Unknown, 12/12/19) VANCOMYCIN (Unverified Adverse Reaction, Intermediate, Shortness of Breath, 12/12/19) Objective Last 24 Hour Vital Signs Date Time Temp Pulse Resp B/P (MAP) Pulse Ox O2 Delivery O2 Flow Rate FiO2 01/16/20 13:10 98.7 01/16/20 13:09 98 24 100/61 92 01/16/20 13:00 98 24 100/61 (74) 92 01/16/20 12:39 150 24 134/79 100 01/16/20 12:16 150 134/79 01/16/20 12:00 108 01/16/20 12:00 105 24 148/85 (106) 92 01/16/20 12:00 Mechanical Ventilator 01/16/20 11:40 100 01/16/20 11:00 134 24 146/83 (104) 100 01/16/20 10:36 113 24 40 01/16/20 10:00 108 19 117/75 (89) 100 01/16/20 09:14 98.7 01/16/20 09:00 110 18 123/63 (83) 99 01/16/20 08:00 40 01/16/20 08:00 123 01/16/20 08:00 123 23 128/97 (107) 98 01/16/20 08:00 Mechanical Ventilator 01/16/20 07:00 113 22 142/77 (98) 99 01/16/20 06:55 122 25 40 01/16/20 06:30 111 19 128/80 (96) 99 01/16/20 06:15 109 25 134/71 (92) 98 01/16/20 06:00 111 20 132/114 (120) 99 01/16/20 05:45 110 19 133/88 (103) 100 01/16/20 05:34 106 84/68 01/16/20 05:30 113 23 84/68 (73) 98 01/16/20 05:00 109 21 78/53 (61) 93 01/16/20 04:00 Mechanical Ventilator 01/16/20 04:00 98.7 109 24 104/64 (77) 99 01/16/20 04:00 40 01/16/20 03:30 103 26 40 01/16/20 03:30 111 24 107/67 (80) 99 01/16/20 03:01 115 01/16/20 03:00 104 23 104/64 (77) 100 01/16/20 02:30 100 21 100/64 (76) 100 01/16/20 02:00 98 22 109/61 (77) 99 01/16/20 01:30 98 19 107/59 (75) 99 01/16/20 01:00 92 19 92/57 (69) 100 01/16/20 00:45 96 20 106/65 (79) 100 01/16/20 00:30 99 22 103/69 (80) 100 01/16/20 00:00 99.6 104 27 117/70 (86) 99 01/16/20 00:00 Mechanical Ventilator 01/16/20 00:00 40 01/16/20 00:00 104 01/15/20 23:45 123 21 122/53 (76) 98 01/15/20 23:41 125 110/66 01/15/20 23:41 125 110/66 01/15/20 23:30 121 25 115/66 (82) 99 01/15/20 23:15 117 18 98/72 (81) 100 01/15/20 23:00 123 18 111/74 (86) 100 01/15/20 23:00 98 24 40 01/15/20 22:56 120 18 111/74 98 01/15/20 22:26 139 22 130/90 100 01/15/20 22:00 138 23 136/102 (113) 95 01/15/20 21:04 135 24 40 01/15/20 21:00 100.3 132 126/62 (83) 100 01/15/20 20:30 123 118/61 (80) 99 01/15/20 20:00 40 01/15/20 20:00 111 107/62 (77) 99 01/15/20 20:00 Mechanical Ventilator 01/15/20 19:30 114 125/65 (85) 100 01/15/20 19:19 111 01/15/20 19:00 100.6 110 20 125/92 (103) 99 01/15/20 18:00 95 18 108/62 (77) 100 01/15/20 17:13 107 112/59 01/15/20 17:00 113 18 113/57 (75) 100 01/15/20 16:00 40 01/15/20 16:00 109 18 112/59 (76) 100 01/15/20 16:00 Mechanical Ventilator 01/15/20 16:00 107 01/15/20 15:59 99.1 01/15/20 15:33 108 18 107/65 100 01/15/20 15:18 115 18 40 01/15/20 15:03 108 18 107/65 100 01/15/20 15:00 107 18 100/61 (74) 100 Height (Feet): 5 Height (Inches): 6.00 Weight (Pounds): 343 General Appearance: no acute distress HEENT: normocephalic, atraumatic, anicteric, no JVD, status post trach Respiratory/Chest: crackles/rales, rhonchi - bilaterally Cardiovascular: normal rate, regular rhythm, no gallop/murmur, no JVD Abdomen: absent bowel sounds, distended Genitourinary: other - + trivedi Extremities: no cyanosis Skin: no rash Neurologic/Psychiatric: other - lethargic, trach and vent Lymphatic: no neck adenopathy Musculoskeletal: no effusion Chest x-ray - 11/17/19 - Procedure: XRAY Chest 1v Indication: Shortness of breath Technique: One view of the chest Comparison: 12/17/2019 Findings: The heart is enlarged. There is bilateral interstitial and airspace disease is again demonstrated, probably unchanged allowing for differences in degree of inspiration. Impression: Unchanged, over one day, findings as above. Chest x-ray - 12/21/19 - Procedure: XRAY Chest 1v Indication: Shortness of breath Technique: One view of the chest Comparison: 12/19/2019 Findings: The heart is enlarged. Bilateral extensive infiltrates are again demonstrated, stable to slightly worse allowing for differences in exposure technique. There is suggestion of increasing pleural fluid on the left. Nasogastric tube is again demonstrated. Impression: Stable to worsened bilateral extensive infiltrates, since exam of 2 days prior Increasing left pleural effusion Chest x-ray - 12/23/19 - IMPRESSION: 1. No significant interval change from the prior chest x-ray. 2. Persistent moderate left pleural effusion and mild right pleural effusion. 3. Pulmonary vascular congestion. 4. Persistent opacity in the left lung base, which may represent atelectasis versus pneumonia. Chest x-ray - 12/25/19 - Procedure: XRAY Chest 1v Procedure: XRAY Chest 1v Reason for study: Reason For Exam: SOB Comparison films: 12/24/2019. FINDINGS: The tracheal tube and NG tube remain in place. Vascular prominence and bilateral hazy alveolar densities are unchanged. Cardiomegaly and small effusions also unchanged. The bony thorax appear unremarkable. IMPRESSION: NO SIGNIFICANT CHANGE COMPARED TO PREVIOUS EXAM. 12/26/19 - Procedure: XRAY Chest 1v Procedure: XRAY Chest 1v Reason for study: Reason For Exam: SOB Comparison films: 12/25/2019. FINDINGS: Endotracheal tube and NG tube remain in place. Hazy bilateral alveolar densities are essentially unchanged given the difference in technique. Cardiomegaly and right effusion again noted. The bony thorax appear unremarkable. IMPRESSION: NO SIGNIFICANT CHANGE COMPARED TO PREVIOUS EXAM. Chest x-ray - 12/28/19 - Procedure: XRAY Chest 1v Indication: Reason For Exam: SOB Technique: Single AP view of the chest. Comparison: Chest radiograph dated 12/27/2019 Findings: Exam is again noted to be diagnostically limited due to underpenetration, patient rotation, and exclusion of part of the left hemithorax from the [id number]. Within these limitations: No significant change in appearance of visualized cardiomediastinal silhouette. Unchanged layering right pleural effusion with associated basilar airspace opacities. Likely retrocardiac consolidation, unchanged. No apical pneumothoraces. Unchanged enteric and endotracheal tubes. Unchanged left PICC. Chest x-ray - 12/30/19 - FINDINGS: Distal tip of ET tube is above devika. Distal tip of the enteric tube is in stomach. Stable left arm PICC line with distal tip likely in the left subclavian vein. Cardiac silhouette is within normal limits allowing for portable and rotated technique. Low lung volumes with elevated left hemidiaphragm. Again noted is a moderate right effusion with patchy infiltrates in the right mid to lower lung. Probable retrocardiac infiltrates. IMPRESSION: Little interval change in moderate right effusion and pneumonia/aspiration. Suspected retrocardiac infiltrate. The distal tip of the left arm PICC line is not well seen past the level of the left mid subclavian vein. [place] location is in the cavoatrial junction. Recommend advancement. <MYCVCSECTION> Chest x-ray - 01/04/20 - Procedure: XRAY Chest 1v Indication: Dyspnea Technique: One view of the chest Comparison: 01/02/2020 Findings: Bilateral interstitial and airspace congestion, right pleural effusion, cardiomegaly persists, unchanged. Tube and line positions are unchanged Impression: Unchanged, over one day, findings as above. Chest x-ray - 01/06/20 - IMPRESSION: 1. Endotracheal tube terminates in the region of the lower thoracic trachea, approximately 2.6 cm above the devika. Enteric tube is difficult to visualize distally. 2. Similar opacities predominantly in the mid and lower lungs which may represent combination of pleural effusions and atelectasis versus pneumonia versus edema. Chest x-ray - 01/07/20 - Procedure: XRAY Chest 1v Indication: Shortness of breath Technique: One view of the chest Comparison: 01/06/2020 Findings: Stable satisfactory positions of endotracheal and orogastric tubes. Mild interstitial congestion and hazy ankle opacities are again demonstrated bilaterally. There appears to be a small amount of pleural fluid bilaterally, probably unchanged. Impression: Unchanged, over one day, findings as above. Chest x-ray - 01/10/20 - Procedure: XRAY Chest 1v Indication: There is a breath Technique: One view of the chest Comparison: 01/08/2020 Findings: Interim conversion of endotracheal tube to a tracheostomy, appearing well positioned. Orogastric tube remains. Bilateral interstitial and airspace infiltrates versus edema persists, unchanged. Small bilateral pleural effusions persist, unchanged. Impression: Interim tracheostomy placement. No radiographically evident complication Stable bilateral pleural and parenchymal disease Chest x-ray - 01/13/20 - FINDINGS/IMPRESSION: Midline tracheostomy tube. Left upper extremity PICC line terminates in the left brachycephalic vein, unchanged. Mild-moderate vascular congestion, which is mildly increased when compared to January 10, 2020. Moderate left pleural effusion, which has mildly increased when compared to January 10, 2020. No pneumothorax. Cardiomegaly. Calcified aorta. Chest x-ray - 01/16/20 - Procedure: XRAY Chest 1v Indication: Shortness of breath Technique: One view of the chest Comparison: 01/15/2020 Findings: Bilateral interstitial and airspace infiltrates versus edema appears slightly increased from the prior exam. Right pleural effusion appears slightly increased. Left pleural fluid probably present, smaller than the right, stable. The heart remains enlarged. Tracheostomy, left arm PICC remain. Impression: Slightly increased pulmonary infiltrates versus edema and right ple ural effusion, over one day Microbiology Date/Time Source Procedure Growth Status 01/15/20 01:20 Nasopharynx SARS-CoV-2 RdRp Gene Assay - Final Complete 01/11/20 04:20 Stool Clostridium difficile Toxin Assay - Final Complete 01/08/20 18:25 Indwelling Cath Urine Culture - Final NO GROWTH AFTER 48 HOURS Complete 01/08/20 15:15 Blood Blood Culture - Final NO GROWTH AFTER 5 DAYS Complete 12/12/19 21:00 Rectum - Final NO CARBAPENEM-RESISTANT ENTEROBACTERI... Complete Microbiology Date/Time Source Procedure Growth Status 01/15/20 01:20 Nasopharynx SARS-CoV-2 RdRp Gene Assay - Final Complete 01/13/20 22:30 Sputum Gram Stain Pending Resulted 01/13/20 22:30 Sputum Culture - Preliminary Gram Negative Bacillus 1 Resulted Laboratory Tests Test 01/16/20 04:15 01/16/20 08:42 01/16/20 11:42 01/16/20 12:55 White Blood Count 2.7 K/UL (4.8-10.8) L Red Blood Count 2.74 M/UL (4.20-5.40) L Hemoglobin 8.1 G/DL (12.0-16.0) L Hematocrit 26.0 % (37.0-47.0) L Mean Corpuscular Volume 95 FL (80-99) Mean Corpuscular Hemoglobin 29.6 PG (27.0-31.0) Mean Corpuscular Hemoglobin Concent 31.2 G/DL (32.0-36.0) L Red Cell Distribution Width 21.2 % (11.6-14.8) H Platelet Count 143 K/UL (150-450) L Mean Platelet Volume 7.0 FL (6.5-10.1) Neutrophils (%) (Auto) % (45.0-75.0) Lymphocytes (%) (Auto) % (20.0-45.0) Monocytes (%) (Auto) % (1.0-10.0) Eosinophils (%) (Auto) % (0.0-3.0) Basophils (%) (Auto) % (0.0-2.0) Differential Total Cells Counted 100 Neutrophils % (Manual) 56 % (45-75) Lymphocytes % (Manual) 32 % (20-45) Monocytes % (Manual) 11 % (1-10) H Eosinophils % (Manual) 1 % (0-3) Basophils % (Manual) 0 % (0-2) Band Neutrophils 0 % (0-8) Nucleated Red Blood Cells 1 /100 WBC Platelet Estimate Decreased L Platelet Morphology Normal Hypochromasia 1+ Anisocytosis 2+ Sodium Level 157 MMOL/L (136-145) H Potassium Level 4.4 MMOL/L (3.5-5.1) Chloride Level 121 MMOL/L (98-107) H Carbon Dioxide Level 26 MMOL/L (21-32) Anion Gap 10 mmol/L (5-15) Blood Urea Nitrogen 39 mg/dL (7-18) H Creatinine 1.8 MG/DL (0.55-1.30) H Estimat Glomerular Filtration Rate 28.0 mL/min (>60) Glucose Level 142 MG/DL (74-106) H Calcium Level 8.3 MG/DL (8.5-10.1) L Arterial Blood pH 7.416 (7.350-7.450) 7.359 (7.350-7.450) Arterial Blood Partial Pressure CO2 36.6 mmHg (35.0-45.0) 44.1 mmHg (35.0-45.0) Arterial Blood Partial Pressure O2 85.2 mmHg (75.0-100.0) 79.0 mmHg (75.0-100.0) Arterial Blood HCO3 23.0 mmol/L (22.0-26.0) 24.3 mmol/L (22.0-26.0) Arterial Blood Oxygen Saturation 94.9 % (95-100) L 94.7 % (95-100) L Arterial Blood Base Excess -1.3 (-2-2) -1.2 (-2-2) [place] Test Positive Positive Prothrombin Time 12.4 SEC (9.30-11.50) H Prothromb Time International Ratio 1.1 (0.9-1.1) Activated Partial Thromboplast Time 25 SEC (23-33) Current Medications Medications (Trade) Dose Ordered Sig/Shiraz Route PRN Reason Start Time Stop Time Status Last Admin Dose Admin Acetaminophen (Tylenol) 650 mg Q4H PRN GT Temp >100.5 01/12/20 10:00 02/11/20 09:59 01/13/20 13:38 Acetaminophen (Tylenol) 650 mg Q4H PRN GT Mild Pain (Pain Scale 1-3) 01/12/20 10:00 02/11/20 09:59 01/15/20 05:41 Acetazolamide (Diamox) 500 mg TWICE A DAY NG 01/02/20 18:00 02/01/20 17:59 01/16/20 08:42 Albuterol Sulfate (Proventil MDI) 2 puff Q4H PRN INH Shortness of Breath 12/24/19 10:30 03/23/20 10:29 01/12/20 09:44 Bacitracin (Bacitracin 15gm tube) 1 applic EVERY 12 HOURS TOPIC 01/16/20 11:00 04/15/20 10:59 01/16/20 11:21 Cefepime HCl 1 gm/ Dextrose 50 ml @ 100 mls/hr Q12HR IVPB 01/12/20 21:00 01/19/20 20:59 01/16/20 08:42 Chlorhexidine Gluconate (Jessie-Hex 2%) 1 applic DAILY@1999 TOPIC 12/24/19 20:00 03/23/20 19:59 01/15/20 21:02 Clotrimazole (Lotrimin) 1 applic EVERY 12 HOURS TOPIC 01/05/20 09:00 03/12/20 08:59 01/16/20 10:11 Dextrose 1,000 ml @ 75 mls/hr [id number] IV 01/14/20 18:00 02/13/20 16:29 01/16/20 10:11 Diltiazem HCl 125 ml @ 0 mls/hr Q24H IVPB 01/14/20 18:00 01/16/20 17:59 01/16/20 12:13 Docusate Sodium (Colace) 100 mg BID NG 12/25/19 09:00 01/24/20 08:59 01/15/20 09:39 Enoxaparin Sodium (Lovenox) 60 mg DAILY SUBQ 01/13/20 12:00 04/12/20 11:59 01/15/20 09:49 Lorazepam (Ativan) 1 mg EVERY 8 HOURS GT 01/14/20 18:00 01/21/20 17:59 01/16/20 12:39 Magnesium Hydroxide (Mom) 30 ml HSPRN PRN NG Constipation 12/22/19 15:15 01/21/20 15:14 01/02/20 22:20 Metoclopramide HCl (Reglan) 5 mg Q6H IVP 01/05/20 09:15 02/04/20 09:14 01/16/20 08:43 Metoprolol Tartrate (Lopressor) 50 mg Q6HR NG 01/13/20 18:00 04/12/20 17:59 01/16/20 12:16 Metronidazole (Flagyl) 500 mg EVERY 8 HOURS ORAL 01/12/20 22:00 01/19/20 21:59 01/16/20 12:39 Midazolam HCl (Versed 2mg/2ml vial) 2 mg Q1H PRN IVP Agitation 01/10/20 17:15 01/17/20 17:14 01/16/20 12:40 Minocycline HCl (Minocin) 100 mg Q12HR ORAL 01/16/20 21:00 01/23/20 20:59 UNV Morphine Sulfate (Morphine Sulfate) 2 mg Q4H PRN IVP Moderate Pain (Pain Scale 4-6) 01/14/20 12:00 01/21/20 11:59 01/14/20 17:54 Morphine Sulfate (Morphine Sulfate) 4 mg Q4H PRN IVP Severe Pain (Pain Scale 7-10) 01/14/20 12:00 01/21/20 11:59 01/16/20 12:40 Pantoprazole (Protonix) 40 mg EVERY 12 HOURS IVP 01/01/20 21:00 01/31/20 20:59 01/16/20 08:41 Polyethylene Glycol (Miralax) 17 gm BEDTIME NG 12/22/19 21:00 01/18/20 20:59 01/15/20 21:02 Potassium Chloride (K-Dur) 40 meq EVERY 12 HOURS NG 01/05/20 11:45 04/04/20 11:14 01/16/20 08:42 Quetiapine Fumarate (SEROqueL) 150 mg EVERY 8 HOURS ORAL 01/11/20 22:00 02/25/20 21:59 01/16/20 12:39 Aleisha Coronel MD Jan 16, 2020 14:24
--- NOTE | 2020-01-16 14:28 | Surgery Progress Note ---
Surgery Progress Note Subjective Procedure Performed tracheostomy Additional Comments ill appearing dressings saturated no n/v Objective Last 24 Hour Vital Signs Date Time Temp Pulse Resp B/P (MAP) Pulse Ox O2 Delivery O2 Flow Rate FiO2 01/16/20 14:00 95 24 112/57 (75) 97 01/16/20 13:10 98.7 01/16/20 13:09 98 24 100/61 92 01/16/20 13:00 98 24 100/61 (74) 92 01/16/20 12:39 150 24 134/79 100 01/16/20 12:16 150 134/79 01/16/20 12:00 108 01/16/20 12:00 105 24 148/85 (106) 92 01/16/20 12:00 Mechanical Ventilator 01/16/20 11:40 100 01/16/20 11:00 134 24 146/83 (104) 100 01/16/20 10:36 113 24 40 01/16/20 10:00 108 19 117/75 (89) 100 01/16/20 09:14 98.7 01/16/20 09:00 110 18 123/63 (83) 99 01/16/20 08:00 40 01/16/20 08:00 123 01/16/20 08:00 123 23 128/97 (107) 98 01/16/20 08:00 Mechanical Ventilator 01/16/20 07:00 113 22 142/77 (98) 99 01/16/20 06:55 122 25 40 01/16/20 06:30 111 19 128/80 (96) 99 01/16/20 06:15 109 25 134/71 (92) 98 01/16/20 06:00 111 20 132/114 (120) 99 01/16/20 05:45 110 19 133/88 (103) 100 01/16/20 05:34 106 84/68 01/16/20 05:30 113 23 84/68 (73) 98 01/16/20 05:00 109 21 78/53 (61) 93 01/16/20 04:00 Mechanical Ventilator 01/16/20 04:00 98.7 109 24 104/64 (77) 99 01/16/20 04:00 40 01/16/20 03:30 103 26 40 01/16/20 03:30 111 24 107/67 (80) 99 01/16/20 03:01 115 01/16/20 03:00 104 23 104/64 (77) 100 01/16/20 02:30 100 21 100/64 (76) 100 01/16/20 02:00 98 22 109/61 (77) 99 01/16/20 01:30 98 19 107/59 (75) 99 01/16/20 01:00 92 19 92/57 (69) 100 01/16/20 00:45 96 20 106/65 (79) 100 01/16/20 00:30 99 22 103/69 (80) 100 01/16/20 00:00 99.6 104 27 117/70 (86) 99 01/16/20 00:00 Mechanical Ventilator 01/16/20 00:00 40 01/16/20 00:00 104 01/15/20 23:45 123 21 122/53 (76) 98 01/15/20 23:41 125 110/66 01/15/20 23:41 125 110/66 01/15/20 23:30 121 25 115/66 (82) 99 01/15/20 23:15 117 18 98/72 (81) 100 01/15/20 23:00 123 18 111/74 (86) 100 01/15/20 23:00 98 24 40 01/15/20 22:56 120 18 111/74 98 01/15/20 22:26 139 22 130/90 100 01/15/20 22:00 138 23 136/102 (113) 95 01/15/20 21:04 135 24 40 01/15/20 21:00 100.3 132 126/62 (83) 100 01/15/20 20:30 123 118/61 (80) 99 01/15/20 20:00 40 01/15/20 20:00 111 107/62 (77) 99 01/15/20 20:00 Mechanical Ventilator 01/15/20 19:30 114 125/65 (85) 100 01/15/20 19:19 111 01/15/20 19:00 100.6 110 20 125/92 (103) 99 01/15/20 18:00 95 18 108/62 (77) 100 01/15/20 17:13 107 112/59 01/15/20 17:00 113 18 113/57 (75) 100 01/15/20 16:00 40 01/15/20 16:00 109 18 112/59 (76) 100 01/15/20 16:00 Mechanical Ventilator 01/15/20 16:00 107 01/15/20 15:59 99.1 01/15/20 15:33 108 18 107/65 100 01/15/20 15:18 115 18 40 01/15/20 15:03 108 18 107/65 100 01/15/20 15:00 107 18 100/61 (74) 100 I&O Intake and Output 01/15/20 01/16/20 19:00 07:00 Intake Total 2377.5 ml 1510.000 ml Output Total 620 ml 850 ml Balance 1757.5 ml 660.000 ml Free Water 600 ml IV Total 1057.5 ml 900.000 ml Tube Feeding 720 ml 400 ml Other 210 ml Output Urine Total 620 ml 850 ml # Bowel Movements 1 Dressing: other Wound: other Cardiovascular: RSR Respiratory: decreased breath sounds Abdomen: soft, non-tender, present bowel sounds Extremities: no tenderness, no cyanosis Laboratory Tests Test 01/16/20 04:15 01/16/20 08:42 01/16/20 11:42 01/16/20 12:55 White Blood Count 2.7 K/UL (4.8-10.8) L Red Blood Count 2.74 M/UL (4.20-5.40) L Hemoglobin 8.1 G/DL (12.0-16.0) L Hematocrit 26.0 % (37.0-47.0) L Mean Corpuscular Volume 95 FL (80-99) Mean Corpuscular Hemoglobin 29.6 PG (27.0-31.0) Mean Corpuscular Hemoglobin Concent 31.2 G/DL (32.0-36.0) L Red Cell Distribution Width 21.2 % (11.6-14.8) H Platelet Count 143 K/UL (150-450) L Mean Platelet Volume 7.0 FL (6.5-10.1) Neutrophils (%) (Auto) % (45.0-75.0) Lymphocytes (%) (Auto) % (20.0-45.0) Monocytes (%) (Auto) % (1.0-10.0) Eosinophils (%) (Auto) % (0.0-3.0) Basophils (%) (Auto) % (0.0-2.0) Differential Total Cells Counted 100 Neutrophils % (Manual) 56 % (45-75) Lymphocytes % (Manual) 32 % (20-45) Monocytes % (Manual) 11 % (1-10) H Eosinophils % (Manual) 1 % (0-3) Basophils % (Manual) 0 % (0-2) Band Neutrophils 0 % (0-8) Nucleated Red Blood Cells 1 /100 WBC Platelet Estimate Decreased L Platelet Morphology Normal Hypochromasia 1+ Anisocytosis 2+ Sodium Level 157 MMOL/L (136-145) H Potassium Level 4.4 MMOL/L (3.5-5.1) Chloride Level 121 MMOL/L (98-107) H Carbon Dioxide Level 26 MMOL/L (21-32) Anion Gap 10 mmol/L (5-15) Blood Urea Nitrogen 39 mg/dL (7-18) H Creatinine 1.8 MG/DL (0.55-1.30) H Estimat Glomerular Filtration Rate 28.0 mL/min (>60) Glucose Level 142 MG/DL (74-106) H Calcium Level 8.3 MG/DL (8.5-10.1) L Arterial Blood pH 7.416 (7.350-7.450) 7.359 (7.350-7.450) Arterial Blood Partial Pressure CO2 36.6 mmHg (35.0-45.0) 44.1 mmHg (35.0-45.0) Arterial Blood Partial Pressure O2 85.2 mmHg (75.0-100.0) 79.0 mmHg (75.0-100.0) Arterial Blood HCO3 23.0 mmol/L (22.0-26.0) 24.3 mmol/L (22.0-26.0) Arterial Blood Oxygen Saturation 94.9 % (95-100) L 94.7 % (95-100) L Arterial Blood Base Excess -1.3 (-2-2) -1.2 (-2-2) Eugene Test Positive Positive Prothrombin Time 12.4 SEC (9.30-11.50) H Prothromb Time International Ratio 1.1 (0.9-1.1) Activated Partial Thromboplast Time 25 SEC (23-33) Plan Problems: (1) Urinary tract infection (2) CHF exacerbation (3) History of schizophrenia (4) Atrial fibrillation with RVR (5) Schizophrenia (6) GERD (gastroesophageal reflux disease) (7) Smoker (8) Atrial fibrillation with rapid ventricular response (9) Lymphadema (10) COPD (chronic obstructive pulmonary disease) (11) CKD (chronic kidney disease) stage 3, GFR 30-59 ml/min (12) NATALIE (acute kidney injury) (13) Dehydration (14) Dysphagia (15) UTI (urinary tract infection) (16) UGI bleed (17) ESBL (extended spectrum beta-lactamase) producing bacteria infection (18) Constipation (19) Lactic acidosis (20) Tinea cruris (21) Onychomycosis (22) Emesis (23) Essential hypertension (24) Anemia (25) Cough (26) Depression (27) Depression (28) Edema (29) Rash (30) Opiate dependence (31) Opiate dependence (32) Opiate dependence (33) Opiate dependence (34) Pyelonephritis (35) Sepsis (36) UTI (urinary tract infection) (37) Nausea and vomiting (38) Abdominal pain Assessment & Plan: [age]-year-old female obese white abdominal pain deep tissue injury identified limited mobility on HD. KUB noted tube in place continue meds feeds Does not seem obstructed We will monitor lines noted. plan change resume tube feeds labs okay FINDINGS: Lower thorax: Obscuration of the left costophrenic angle suggestive of pleural effusion. Intraperitoneal space: No free air. Gastrointestinal tract: Unremarkable. No dilation. Bones/joints: Unremarkable. Tubes, lines and devices: The nasogastric tube has the tip at the mid inferior aspect of the gastric body. Other findings: Nonspecific gas pattern. Single frontal view of the abdomen demonstrates tip of the enteric tube and distal side-port projecting over the stomach. Gas is identified within the nondistended large bowel. There is a paucity of small bowel gas seen. Partially visualized left pleural effusion. No other significant interval change. (39) Chest pain (40) Chest pain (41) Nausea (42) Obesity (43) Chronic ulcer of leg (44) Chronic ulcer of leg (45) Chronic ulcer of leg (46) ACS (acute coronary syndrome) (47) Acute chest pain (48) Encounter for dressing change or suture removal (49) Left leg cellulitis (50) Acute encephalopathy (51) Encounter for wound re-check (52) Intractable nausea and vomiting (53) Infection due to ESBL-producing Escherichia coli (54) Chronic venous stasis (55) Change of dressing (56) Change of dressing (57) Change of dressing (58) Change of dressing (59) Change of dressing (60) Change of dressing (61) Change of dressing (62) Change of dressing (63) ESBL urine (64) Lymphadema (65) Lymphedema (66) Lymphedema (67) Lymphedema (68) Lymphedema (69) Lymphedema (70) Lymphedema (71) Lymphedema (72) Lymphedema (73) Open wound of foot (74) Open wound of foot (75) cellulitis (76) chronic lymphedema (77) chronic lymphedema (78) chronic lymphedema (79) hypertension uncontrolled (80) hypertension uncontrolled (81) Intertrigo (82) Sciatica (83) Cellulitis (84) Schizophrenia (85) Chronic bronchitis (86) HTN (hypertension) (87) Venous stasis ulcers (88) Medication refill (89) Chest pain, atypical (90) BMI 45.0-49.9, adult (91) Lymphedema of both lower extremities (92) hypertension uncontrolled (93) hypertension uncontrolled (94) hypertension uncontrolled (95) tenia corpus (96) Deep tissue injury Assessment & Plan: Morbidly obese pt whom presented on admission with Pressure injuries, Edemae bilat lower extremities eschar to dorsal aspects of metatarsals. Pt is very demanding of staff and can be resistive to repositioning. DTPI noted to L Sacrum(L)5.5cm x (W)2.5cm. Base of Pressure Injury is Maroon and indurated with surrounding non-blanchable erythema DTPI R Sacrum(L)5.5cm x (W)2.3cm. Base of Pressure Injury is maroon with purpuric center that is fluctuant. Pt complained of tenderness when minimally palpated. Bilat lower extremities are edematous . Dry eschar noted to nail matrix and tip of L 1st metatarsal, Dorsal L 2nd metatarsal, R 2nd and R 4th metatarsals. Both heels are boggy with non-Blanchable erythema. blisters forming on Right lower extremity anterior tibia. not infected cellulitis / edema on b/l le stable cont abx Tx.Plan: Apply Moisture Barrier Paste to Sacrum R and L gluteal cheeks. Cover with Optifoam drsgs. Change every 3 days and prn. Apply Betadine to dry eschar metatarsals both feet Daily. Apply Cavilon Skin Barrier to both heels. Cover each heel with Optifoam drsgs. Change every 7days and prn. Reposition at least every 2hours or as tolerated. Off-load heels with pillow. right leg hematoma stable critically ill and edema on right leg has compromised dermis over the hematoma. will likely need debridement once improved (97) COVID-19 Assessment & Plan: ++ on vent weaning abx as per ID (98) Respiratory failure Assessment & Plan: not able to wean safely will plan for trach case discussed with medical team, pulm, icu. recommended to trach given medical condition. medically indicated and recommended. s/p trach 01/08 s/p trach more comfortable less agitated on vent weaning (99) Pneumonia Juan Manuel Buckner Jan 16, 2020 14:28
--- NOTE | 2020-01-16 15:34 | General Progress Note ---
Subjective ROS Limited/Unobtainable: Yes Allergies: Coded Allergies: ERYTHROMYCIN BASE (Verified Allergy, Severe, 12/12/19) HALOPERIDOL (Verified Allergy, Unknown, 12/12/19) VANCOMYCIN (Unverified Adverse Reaction, Intermediate, Shortness of Breath, 12/12/19) Objective Last 24 Hour Vital Signs Date Time Temp Pulse Resp B/P (MAP) Pulse Ox O2 Delivery O2 Flow Rate FiO2 01/16/20 14:00 95 24 112/57 (75) 97 01/16/20 13:10 98.7 01/16/20 13:09 98 24 100/61 92 01/16/20 13:00 98 24 100/61 (74) 92 01/16/20 12:39 150 24 134/79 100 01/16/20 12:16 150 134/79 01/16/20 12:00 108 01/16/20 12:00 40 01/16/20 12:00 105 24 148/85 (106) 92 01/16/20 12:00 Mechanical Ventilator 01/16/20 11:40 100 01/16/20 11:00 134 24 146/83 (104) 100 01/16/20 10:36 113 24 40 01/16/20 10:00 108 19 117/75 (89) 100 01/16/20 09:14 98.7 01/16/20 09:00 110 18 123/63 (83) 99 01/16/20 08:00 40 01/16/20 08:00 123 01/16/20 08:00 123 23 128/97 (107) 98 01/16/20 08:00 Mechanical Ventilator 01/16/20 07:00 113 22 142/77 (98) 99 01/16/20 06:55 122 25 40 01/16/20 06:30 111 19 128/80 (96) 99 01/16/20 06:15 109 25 134/71 (92) 98 01/16/20 06:00 111 20 132/114 (120) 99 01/16/20 05:45 110 19 133/88 (103) 100 01/16/20 05:34 106 84/68 01/16/20 05:30 113 23 84/68 (73) 98 01/16/20 05:00 109 21 78/53 (61) 93 01/16/20 04:00 Mechanical Ventilator 01/16/20 04:00 98.7 109 24 104/64 (77) 99 01/16/20 04:00 40 01/16/20 03:30 103 26 40 01/16/20 03:30 111 24 107/67 (80) 99 01/16/20 03:01 115 01/16/20 03:00 104 23 104/64 (77) 100 01/16/20 02:30 100 21 100/64 (76) 100 01/16/20 02:00 98 22 109/61 (77) 99 01/16/20 01:30 98 19 107/59 (75) 99 01/16/20 01:00 92 19 92/57 (69) 100 01/16/20 00:45 96 20 106/65 (79) 100 01/16/20 00:30 99 22 103/69 (80) 100 01/16/20 00:00 99.6 104 27 117/70 (86) 99 01/16/20 00:00 Mechanical Ventilator 01/16/20 00:00 40 01/16/20 00:00 104 01/15/20 23:45 123 21 122/53 (76) 98 01/15/20 23:41 125 110/66 01/15/20 23:41 125 110/66 01/15/20 23:30 121 25 115/66 (82) 99 01/15/20 23:15 117 18 98/72 (81) 100 01/15/20 23:00 123 18 111/74 (86) 100 01/15/20 23:00 98 24 40 01/15/20 22:56 120 18 111/74 98 01/15/20 22:26 139 22 130/90 100 01/15/20 22:00 138 23 136/102 (113) 95 01/15/20 21:04 135 24 40 01/15/20 21:00 100.3 132 126/62 (83) 100 01/15/20 20:30 123 118/61 (80) 99 01/15/20 20:00 40 01/15/20 20:00 111 107/62 (77) 99 01/15/20 20:00 Mechanical Ventilator 01/15/20 19:30 114 125/65 (85) 100 01/15/20 19:19 111 01/15/20 19:00 100.6 110 20 125/92 (103) 99 01/15/20 18:00 95 18 108/62 (77) 100 01/15/20 17:13 107 112/59 01/15/20 17:00 113 18 113/57 (75) 100 01/15/20 16:00 40 01/15/20 16:00 109 18 112/59 (76) 100 01/15/20 16:00 Mechanical Ventilator 01/15/20 16:00 107 01/15/20 15:59 99.1 01/15/20 15:33 108 18 107/65 100 Intake and Output 01/15/20 01/16/20 19:00 07:00 Intake Total 2377.5 ml 1510.000 ml Output Total 620 ml 850 ml Balance 1757.5 ml 660.000 ml Free Water 600 ml IV Total 1057.5 ml 900.000 ml Tube Feeding 720 ml 400 ml Other 210 ml Output Urine Total 620 ml 850 ml # Bowel Movements 1 Laboratory Tests 01/16/20 04:15: White Blood Count 2.7L, Red Blood Count 2.74L, Hemoglobin 8.1L, Hematocrit 26.0L , Mean Corpuscular Volume 95, Mean Corpuscular Hemoglobin 29.6, Mean Corpuscular Hemoglobin Concent 31.2L, Red Cell Distribution Width 21.2H, Platelet Count 143L , Mean Platelet Volume 7.0, Neutrophils (%) (Auto) , Lymphocytes (%) (Auto) , Monocytes (%) (Auto) , Eosinophils (%) (Auto) , Basophils (%) (Auto) , Differential Total Cells Counted 100, Neutrophils % (Manual) 56, Lymphocytes % (Manual) 32, Monocytes % (Manual) 11H, Eosinophils % (Manual) 1, Basophils % (Manual) 0, Band Neutrophils 0, Nucleated Red Blood Cells 1, Platelet Estimate DecreasedL, Platelet Morphology Normal, Hypochromasia 1+, Anisocytosis 2+, Sodium Level 157H, Potassium Level 4.4, Chloride Level 121H, Carbon Dioxide Level 26, Anion Gap 10, Blood Urea Nitrogen 39H, Creatinine 1.8H, Estimat Glomerular Filtration Rate 28.0, Glucose Level 142H, Calcium Level 8.3L 01/16/20 08:42: Arterial Blood pH 7.416, Arterial Blood Partial Pressure CO2 36.6, Arterial Blood Partial Pressure O2 85.2, Arterial Blood HCO3 23.0, Arterial Blood Oxygen Saturation 94.9L, Arterial Blood Base Excess -1.3, Eugene Test Positive 01/16/20 11:42: Arterial Blood pH 7.359, Arterial Blood Partial Pressure CO2 44.1, Arterial Blood Partial Pressure O2 79.0, Arterial Blood HCO3 24.3, Arterial Blood Oxygen Saturation 94.7L, Arterial Blood Base Excess -1.2, Eugene Test Positive 01/16/20 12:55: Prothrombin Time 12.4H, Prothromb Time International Ratio 1.1, Activated Partial Thromboplast Time 25 Height (Feet): 5 Height (Inches): 6.00 Weight (Pounds): 343 General Appearance: lethargic, other - trach vent Neck: normal inspection Cardiovascular: regularly irregular Respiratory/Chest: rhonchi - bilaterally Abdomen: non tender Edema: moderate edema Neurologic: unresponsive Assessment/Plan Problem List: (1) Schizophrenia ICD Codes: F20.9 - Schizophrenia, unspecified SNOMED: 96542135 (2) GERD (gastroesophageal reflux disease) ICD Codes: K21.9 - Gastro-esophageal reflux disease without esophagitis SNOMED: 337910032 (3) Lymphadema (4) Smoker ICD Codes: F17.200 - Nicotine dependence, unspecified, uncomplicated SNOMED: 26747998 (5) Atrial fibrillation with rapid ventricular response ICD Codes: I48.91 - Unspecified atrial fibrillation SNOMED: 074810808743587 (6) CKD (chronic kidney disease) stage 3, GFR 30-59 ml/min ICD Codes: N18.3 - Chronic kidney disease, stage 3 (moderate) SNOMED: 376079526 (7) NATALIE (acute kidney injury) ICD Codes: N17.9 - Acute kidney failure, unspecified SNOMED: 1339778, 35332780 (8) COPD (chronic obstructive pulmonary disease) ICD Codes: J44.9 - Chronic obstructive pulmonary disease, unspecified SNOMED: 58212422 (9) UGI bleed ICD Codes: K92.2 - Gastrointestinal hemorrhage, unspecified SNOMED: 32484869 (10) Dysphagia ICD Codes: R13.10 - Dysphagia, unspecified SNOMED: 58070497, 337498965 (11) UTI (urinary tract infection) ICD Codes: N39.0 - Urinary tract infection, site not specified SNOMED: 73006519 (12) ESBL (extended spectrum beta-lactamase) producing bacteria infection ICD Codes: A49.9 - Bacterial infection, unspecified; Z16.12 - Extended spectrum beta lactamase (ESBL) resistance SNOMED: 268605990 (13) Dehydration ICD Codes: E86.0 - Dehydration SNOMED: 19736047 (14) CHF exacerbation ICD Codes: I50.9 - Heart failure, unspecified SNOMED: 270402991, 46872589661661 (15) Acute respiratory failure ICD Codes: J96.00 - Acute respiratory failure, unspecified whether with hypoxia or hypercapnia SNOMED: 10979639 (16) COVID-19 ICD Codes: U07.1 - COVID-19 SNOMED: 706891308 (17) Pneumonia ICD Codes: J18.9 - Pneumonia, unspecified organism SNOMED: 180455792 Qualifiers: (18) Hematoma of lower leg ICD Codes: S80.10XA - Contusion of unspecified lower leg, initial encounter SNOMED: 258275745 (19) CKD (chronic kidney disease) stage 3, GFR 30-59 ml/min ICD Codes: N18.3 - Chronic kidney disease, stage 3 (moderate) SNOMED: 310539370 (20) Pancytopenia ICD Codes: D61.818 - Other pancytopenia SNOMED: 453267442 Status: stable Assessment/Plan: resp distress, icu, trach, vent, natalie on ckd,,now stable, I/O reviewed, hematoma RLE stop eliquis , lovenox now iv protonix, rx esbl and + vre uti,g+ cocci , remains high risk, d/w psych, ID, cardiology, chf and on lasix ,covid neg prior positive this admission now neg, , grave prognosis, fungemia treated with micafungin likely will be unable to wean for a long time, agitated when tried to wean , ,all lab and orders reviewed , no active bleeding , low Hb to transfuse 01/08 preop, done, , reculture, d/w dr curran needs trach, done,Needs gastrostomy unable to sign, done Dr Curran thinks that she might be able to wean gradually after trach placed, febrile again and infiltrates, trach scheduled 01/08, done, pancytopenia stable may be from sepsis or meds(remdesivir, chlorpromazine, micafungin, linezolid), posssible primary BM disease, to observe ,immunofixation ordered,negative, hypernatremia and free water gt,D5w iv stop lasix titrate sedatives , some distress earlier short cpap trial, cardizem drip for rapid afib icu time 35 min Benjamin Dumont MD Jan 16, 2020 15:34
--- NOTE | 2020-01-16 16:10 | NUR ---
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 98.7 HR 95 RR 24 B/P 100/51 AC 18 TV 600 FIO2 40% PEEP 5 WBC 2.7 IS: CARDIZEM GTT IVF D5 @ 125ML/HR CEFEPIME IV FLAGYL ICU STATUS
--- NOTE | 2020-01-16 16:30 | NUR ---
NURSE NOTES: Radiologist was at bedside for thoracentesis; total of 500ml fluid was removed from pt's right lung. Pt tolerated procedure well. site was covered with 2x2 gauze/band aid. Dr. Keen is at the nurse's station now; and ordered was received to send the collected fluid to lab for: 1. pH level 2. Cell count 3. Total protein 4. Lactate Dehydrogenase 5. Glucose 6. Triglycerides 7. Gram stain culture Specimen was sent to lab as ordered. Addendum: 01/16/20 at 1999 by JOSE VUONG RN Order was also placed for blood level of lactate dehydrogenase and total protein per Dr. Keen.
--- NOTE | 2020-01-16 17:09 | Brief Operative Note ---
Immediate Post Operative Note Operative Note Pre-op Diagnosis: pleural effusion Procedure: thoracentesis Post-op Diagnosis: same as pre-op Surgeon: Miguel Adams Anesthesia: local Specimen: yes - 50 ml fluid sent to lab Complications: none Fluids: none Implant(s) used?: No Josh Adams MD Jan 16, 2020 17:09
--- NOTE | 2020-01-16 17:22 | Diagnostic Imaging Report ---
Indications: Pleural effusion Technique: Ultrasound used to localize optimal puncture site. Sterile prepping and draping right chest. Local anesthesia with 1% lidocaine. Under real-time ultrasound guidance, puncture pleural space using thoracentesis needle. Stylet removed. Catheter placed to vacuum bottle suction. Total 500 milliliters of cloudy brown fluid aspirated. Patient tolerated procedure well, without immediate complication. Findings: Followup sonography demonstrates complete resolution of pleural fluid. Impression: Successful ultrasound-guided thoracentesis, yielding 500 milliliters of very cloudy fluid
--- NOTE | 2020-01-16 17:25 | Diagnostic Imaging Report ---
Indication: Postthoracentesis Technique: One view of the chest Comparison: 8 hours earlier Findings: Interim resolution of previously demonstrated right pleural effusion. Other findings are unchanged. There is no pneumothorax Impression: No pneumothorax, status post thoracentesis
--- NOTE | 2020-01-16 17:48 | NUR ---
NURSE NOTES: Morphine 4mg IVP and Versed 2mg IVP were administered per PRN orders for severe pain and agitation. Pt remains on Cardizem drip at 15mg/hr to maintain HR below 100.
--- NOTE | 2020-01-16 18:00 | NUR ---
NURSE NOTES: Pt was cleaned, gown/bed linens were changed. Sacral and right lower leg dressings were changed. Dr. Buckner notified regarding the RLE wound/current status. Pt remains on Cardizem drip at 15mg/hr to maintain HR below 100. Pt was repositioned for comfort; bilateral extremities elevated on pillows.
--- NOTE | 2020-01-16 18:00 | NUR ---
NURSE NOTES: Cardizem drip Rx was renewed to continue maintaining HR below 100; per Dr. Galan' order.
--- NOTE | 2020-01-16 19:27 | NUR ---
NURSE HAND-OFF REPORT: Latest Vital Signs: Temperature 98.9 , Pulse 97 , B/P 137 /70 , Respiratory Rate 18 , O2 SAT 100 , trach to vent, Shiley 8, AC18, VT600, Peep 5, FIO2 40%. Vital Sign Comment: Pt remains on Cardizem drip, at 15mg/hr to maintain HR below 100. EKG Rhythm: Atrial Fibrillation Rhythm change?: N Notified?: N -MD Gaviota UNDERWOOD Response: Latest Abreu Fall Score: 75 Fall Risk: High Risk Safety Measures: Call light Within Reach, Bed Alarm Zone 1, Side Rails Side Rails x3, Bed position Low and Locked. Fall Precautions: Yellow Socks Yellow Gown Door Sign Patient Fall Education Report given to Bre COHEN.
--- NOTE | 2020-01-16 19:28 | NUR ---
NURSE NOTES: Received patient from NOEL Galvan. Will continue plan of care.
[2020-01-16] MEDS: Dyna-Hex 2% Top Sol 2oz TOPIC SCH (20:00)
--- NOTE | 2020-01-16 20:00 | NUR ---
NURSE NOTES: Patient is trach'd; Shiley 8 to vent setting of AC:18, TV:600, FiO2:40%, PEEP:5, O2sat:100%. She is easily awakens to stimuli. Left nare NGT running Glucerna 1.5 @ goal of 60ml/hr. GT patent and flushing well. Lockett catheter in place and draining. Right leg ulcer dressing dry and intact and awaiting wound consult. TOOL AND CUTTER GRINDER restraints in place for safety and prevent from pulling on lines and tubing; ROM and skin assessed. Isolation precautions noted. Will continue plan of care
[2020-01-16] MEDS: Miralax 17gm pkt NG SCH (20:02)
[2020-01-16] MEDS: Acetaminophen 650mg/20.3ml GT PRN (21:26)
--- NOTE | 2020-01-16 22:00 | NUR ---
NURSE NOTES: Patient has been sleeping comfortably. Tylenol given via GT for elevated temp of 101.0. Will monitor.
--- NOTE | 2020-01-16 23:24 | Psych Consult Progress Note ---
Psychiatry Progress Note Psychiatry Progress Note Subjective less agitated and on bilat restraints. pt is on multiple meds as well as antibiotics Medications Current Medications Medications (Trade) Dose Ordered Sig/Shiraz Route PRN Reason Start Time Stop Time Status Last Admin Dose Admin Acetaminophen (Tylenol) 650 mg Q4H PRN GT Mild Pain (Pain Scale 1-3) 01/12/20 10:00 02/11/20 09:59 01/15/20 05:41 Acetaminophen (Tylenol) 650 mg Q4H PRN GT Temp >100.5 01/12/20 10:00 02/11/20 09:59 01/16/20 21:26 Acetazolamide (Diamox) 500 mg TWICE A DAY NG 01/02/20 18:00 02/01/20 17:59 01/16/20 17:47 Albuterol Sulfate (Proventil MDI) 2 puff Q4H PRN INH Shortness of Breath 12/24/19 10:30 03/23/20 10:29 01/12/20 09:44 Bacitracin (Bacitracin 15gm tube) 1 applic EVERY 12 HOURS TOPIC 01/16/20 11:00 04/15/20 10:59 01/16/20 20:02 Cefepime HCl 1 gm/ Dextrose 50 ml @ 100 mls/hr Q12HR IVPB 01/12/20 21:00 01/19/20 20:59 01/16/20 20:01 Chlorhexidine Gluconate (Jessie-Hex 2%) 1 applic DAILY@1999 TOPIC 12/24/19 20:00 03/23/20 19:59 01/16/20 20:00 Clotrimazole (Lotrimin) 1 applic EVERY 12 HOURS TOPIC 01/05/20 09:00 03/12/20 08:59 01/16/20 20:02 Dextrose 1,000 ml @ 125 mls/hr Q8H IV 01/14/20 18:00 02/13/20 16:29 01/16/20 20:00 Diltiazem HCl 125 ml @ 0 mls/hr Q24H IVPB 01/16/20 18:00 01/17/20 17:59 01/16/20 20:11 Docusate Sodium (Colace) 100 mg BID NG 12/25/19 09:00 01/24/20 08:59 01/15/20 09:39 Enoxaparin Sodium (Lovenox) 60 mg DAILY SUBQ 01/13/20 12:00 04/12/20 11:59 01/15/20 09:49 Lorazepam (Ativan) 1 mg EVERY 8 HOURS GT 01/14/20 18:00 01/21/20 17:59 01/16/20 21:26 Magnesium Hydroxide (Mom) 30 ml HSPRN PRN NG Constipation 12/22/19 15:15 01/21/20 15:14 01/02/20 22:20 Metoclopramide HCl (Reglan) 5 mg Q6H IVP 01/05/20 09:15 02/04/20 09:14 01/16/20 21:25 Metoprolol Tartrate (Lopressor) 50 mg Q6HR NG 01/13/20 18:00 04/12/20 17:59 01/16/20 23:08 Metronidazole (Flagyl) 500 mg EVERY 8 HOURS ORAL 01/12/20 22:00 01/19/20 21:59 01/16/20 21:26 Midazolam HCl (Versed 2mg/2ml vial) 2 mg Q1H PRN IVP Agitation 01/10/20 17:15 01/17/20 17:14 01/16/20 23:08 Minocycline HCl (Minocin) 100 mg Q12HR ORAL 01/16/20 21:00 01/23/20 20:59 01/16/20 21:25 Morphine Sulfate (Morphine Sulfate) 2 mg Q4H PRN IVP Moderate Pain (Pain Scale 4-6) 01/14/20 12:00 01/21/20 11:59 01/14/20 17:54 Morphine Sulfate (Morphine Sulfate) 4 mg Q4H PRN IVP Severe Pain (Pain Scale 7-10) 01/14/20 12:00 01/21/20 11:59 01/16/20 17:48 Pantoprazole (Protonix) 40 mg EVERY 12 HOURS IVP 01/01/20 21:00 01/31/20 20:59 01/16/20 20:01 Polyethylene Glycol (Miralax) 17 gm BEDTIME NG 12/22/19 21:00 01/18/20 20:59 01/16/20 20:02 Potassium Chloride (K-Dur) 40 meq EVERY 12 HOURS NG 01/05/20 11:45 04/04/20 11:14 01/16/20 20:01 Quetiapine Fumarate (SEROqueL) 150 mg EVERY 8 HOURS ORAL 01/11/20 22:00 02/25/20 21:59 01/16/20 21:25 Neurological/Psychiatric: Reports: anxiety, depressed, emotional problems Allergies: Coded Allergies: ERYTHROMYCIN BASE (Verified Allergy, Severe, 12/12/19) HALOPERIDOL (Verified Allergy, Unknown, 12/12/19) VANCOMYCIN (Unverified Adverse Reaction, Intermediate, Shortness of Breath, 12/12/19) Objective Data Height (Feet): 5 Height (Inches): 6.00 Weight (Pounds): 343 General Appearance: lethargic, other - trach vent Additional Comments: confused. Mood is anxious. Affect is flat. Assessment/Plan Caro I: seroquel 150 tid ativan 1mg q 8 hrs bilat restraints. Status: stable Status Narrative seroquel 150 tid ativan 1mg q 8 hrs bilat restraints. Assessment/Plan: seroquel 150 tid ativan 1mg q 8 hrs bilat restraints. Harris Ballesteros MD Jan 16, 2020 23:24
--- NOTE | 2020-01-16 23:39 | Cardiology Progress Note ---
Subjective DATE OF SERVICE: Jan 16, 2020 Doing poorly - remains in ICU in critical condition with guarded prognosis. Remains on vent support - failed weaning trials; now s/p trach S/p diagnostic thorocentesis. Fever spikes continue. BP range remaining low normal range. Remains COVID19 positive. Monitor: AFIb with rapid rates - now on cardizem gtts. Venous Duplex: negative for DVT Renal fxn and free water deficit worsening CXR (01/15/20) no change in bilateral infiltrates/edema and eff'n - s/p trach Objective Last 24 Hour Vital Signs Date Time Temp Pulse Resp B/P (MAP) Pulse Ox O2 Delivery O2 Flow Rate FiO2 01/16/20 23:08 116 136/68 01/16/20 23:00 115 26 136/68 (90) 99 01/16/20 22:59 98 21 40 01/16/20 22:00 93 21 105/57 (73) 100 01/16/20 21:56 92 24 107/68 100 01/16/20 21:56 100.0 01/16/20 21:26 94 20 102/61 100 01/16/20 21:00 93 20 112/68 (83) 100 01/16/20 20:00 Mechanical Ventilator 01/16/20 20:00 40 01/16/20 20:00 101.0 97 19 119/70 (86) 99 01/16/20 19:23 97 18 40 01/16/20 19:00 92 19 118/69 (85) 100 01/16/20 18:18 98.9 01/16/20 18:00 98.9 113 19 137/70 (92) 100 01/16/20 17:47 118 141/70 01/16/20 17:00 118 20 141/70 (93) 98 01/16/20 16:00 111 01/16/20 16:00 Mechanical Ventilator 01/16/20 16:00 40 01/16/20 16:00 109 19 109/66 (80) 100 01/16/20 15:25 106 19 40 01/16/20 15:00 97 19 110/58 (75) 100 01/16/20 14:00 95 24 112/57 (75) 97 01/16/20 13:10 98.7 01/16/20 13:09 98 24 100/61 92 01/16/20 13:00 98 24 100/61 (74) 92 01/16/20 12:39 150 24 134/79 100 01/16/20 12:16 150 134/79 01/16/20 12:00 108 01/16/20 12:00 40 01/16/20 12:00 105 24 148/85 (106) 92 01/16/20 12:00 Mechanical Ventilator 01/16/20 11:40 100 01/16/20 11:40 93 19 40 01/16/20 11:00 134 24 146/83 (104) 100 01/16/20 10:36 113 24 40 01/16/20 10:00 108 19 117/75 (89) 100 01/16/20 09:14 98.7 01/16/20 09:00 110 18 123/63 (83) 99 01/16/20 08:00 40 01/16/20 08:00 123 01/16/20 08:00 123 23 128/97 (107) 98 01/16/20 08:00 Mechanical Ventilator 01/16/20 07:00 113 22 142/77 (98) 99 01/16/20 06:55 122 25 40 01/16/20 06:30 111 19 128/80 (96) 99 01/16/20 06:15 109 25 134/71 (92) 98 01/16/20 06:00 111 20 132/114 (120) 99 01/16/20 05:45 110 19 133/88 (103) 100 01/16/20 05:34 106 84/68 01/16/20 05:30 113 23 84/68 (73) 98 01/16/20 05:00 109 21 78/53 (61) 93 01/16/20 04:00 Mechanical Ventilator 01/16/20 04:00 98.7 109 24 104/64 (77) 99 01/16/20 04:00 40 01/16/20 03:30 103 26 40 01/16/20 03:30 111 24 107/67 (80) 99 01/16/20 03:01 115 01/16/20 03:00 104 23 104/64 (77) 100 01/16/20 02:30 100 21 100/64 (76) 100 01/16/20 02:00 98 22 109/61 (77) 99 01/16/20 01:30 98 19 107/59 (75) 99 01/16/20 01:00 92 19 92/57 (69) 100 01/16/20 00:45 96 20 106/65 (79) 100 01/16/20 00:30 99 22 103/69 (80) 100 01/16/20 00:00 99.6 104 27 117/70 (86) 99 01/16/20 00:00 Mechanical Ventilator 01/16/20 00:00 40 01/16/20 00:00 104 01/15/20 23:45 123 21 122/53 (76) 98 01/15/20 23:41 125 110/66 01/15/20 23:41 125 110/66 ROS: unchanged from 12/12/19 HEENT: Orally intubated, Mechanically Ventilated, Thin secretions ET Tube, other - NGtube RHYTHM: NSR, ST LUNGS: diminished breath sounds, right-sided rhonchi CARDIAC: normal S1 and S2, irregularly irregular ABDOMEN: other - obese EXTREMITIES: moderate edema - mostly non pitting, other - hematoma right leg Laboratory Tests Test 01/16/20 04:15 01/16/20 08:42 01/16/20 11:42 01/16/20 12:55 White Blood Count 2.7 K/UL (4.8-10.8) L Red Blood Count 2.74 M/UL (4.20-5.40) L Hemoglobin 8.1 G/DL (12.0-16.0) L Hematocrit 26.0 % (37.0-47.0) L Mean Corpuscular Volume 95 FL (80-99) Mean Corpuscular Hemoglobin 29.6 PG (27.0-31.0) Mean Corpuscular Hemoglobin Concent 31.2 G/DL (32.0-36.0) L Red Cell Distribution Width 21.2 % (11.6-14.8) H Platelet Count 143 K/UL (150-450) L Mean Platelet Volume 7.0 FL (6.5-10.1) Neutrophils (%) (Auto) % (45.0-75.0) Lymphocytes (%) (Auto) % (20.0-45.0) Monocytes (%) (Auto) % (1.0-10.0) Eosinophils (%) (Auto) % (0.0-3.0) Basophils (%) (Auto) % (0.0-2.0) Differential Total Cells Counted 100 Neutrophils % (Manual) 56 % (45-75) Lymphocytes % (Manual) 32 % (20-45) Monocytes % (Manual) 11 % (1-10) H Eosinophils % (Manual) 1 % (0-3) Basophils % (Manual) 0 % (0-2) Band Neutrophils 0 % (0-8) Nucleated Red Blood Cells 1 /100 WBC Platelet Estimate Decreased L Platelet Morphology Normal Hypochromasia 1+ Anisocytosis 2+ Sodium Level 157 MMOL/L (136-145) H Potassium Level 4.4 MMOL/L (3.5-5.1) Chloride Level 121 MMOL/L (98-107) H Carbon Dioxide Level 26 MMOL/L (21-32) Anion Gap 10 mmol/L (5-15) Blood Urea Nitrogen 39 mg/dL (7-18) H Creatinine 1.8 MG/DL (0.55-1.30) H Estimat Glomerular Filtration Rate 28.0 mL/min (>60) Glucose Level 142 MG/DL (74-106) H Calcium Level 8.3 MG/DL (8.5-10.1) L Arterial Blood pH 7.416 (7.350-7.450) 7.359 (7.350-7.450) Arterial Blood Partial Pressure CO2 36.6 mmHg (35.0-45.0) 44.1 mmHg (35.0-45.0) Arterial Blood Partial Pressure O2 85.2 mmHg (75.0-100.0) 79.0 mmHg (75.0-100.0) Arterial Blood HCO3 23.0 mmol/L (22.0-26.0) 24.3 mmol/L (22.0-26.0) Arterial Blood Oxygen Saturation 94.9 % (95-100) L 94.7 % (95-100) L Arterial Blood Base Excess -1.3 (-2-2) -1.2 (-2-2) Eugene Test Positive Positive Prothrombin Time 12.4 SEC (9.30-11.50) H Prothromb Time International Ratio 1.1 (0.9-1.1) Activated Partial Thromboplast Time 25 SEC (23-33) Test 01/16/20 15:25 Body Fluid Source Thoracentesis Body Fluid Volume 24 mL Body Fluid Appearance Turbid (Clear) Body Fluid pH 7.0 Body Fluid RBC [id number] /CUMM Body Fluid Total Nucleated Cells [id number] /CUMM Body Fluid Polynuclear WBCs (%) 19 % Body Fluid Mononuclear WBCs (%) 81 % Body Fluid Mesothelial Cells (%) 0 % Body Fluid Glucose Pending Body Fluid Total Protein Pending Body Fluid Comment See note Lactate Dehydrogenase Pending Microbiology Date/Time Source Procedure Growth Status 01/15/20 01:20 Nasopharynx SARS-CoV-2 RdRp Gene Assay - Final Complete Assessment/Plan Assessment/Plan CRITICAL AND GUARDED Acute respiratory failure - s/p trach Acute on chronic respiratory acidosis AFiB with labile heart rates, and now persistent RVR. CHF, ac/chr diastolic BLE edema Sepsis with shock obesity COPD with bronchospasm Acute renal failure - worsening Pleural effusion GI bleeding Anemia - multifactorial, now worse Covid 19 PNA Hypokalemia Dehydration/hypernatremia worsened Hypertension/HHD with labile BP - now stable range. Vent support Advance beta yves and start IV cardizem gtts. PRBC transfusion for hb below 7gm/dl Monitor acid/base parameters. Antimicrobials Lovenox added for cardioembolic prophyl Continued rn cardiac Potassium and add'l free water suppl to continue. Agree with DNR Jerome Meek MD Jan 16, 2020 23:39
[2020-01-17] VITALS (24 sets, daily range): BP systolic 114–161; BP diastolic 57–96
--- NOTE | 2020-01-17 | NUR ---
NURSE NOTES: Patient became agitated and restless, hypertension and tachycardiac. PRN Versed 2mg IVP given, patient is now back to resting comfortably.
--- NOTE | 2020-01-17 02:00 | NUR ---
NURSE NOTES: BP:138/76, HR still fluctuates 100-130. Cardizem drip still continues at 15mg/hr.
[2020-01-17] MEDS: Midazolam 2mg/2ml Inj IVP PRN (03:00)
[2020-01-17] MEDS: Metoclopramide 10mg/2ml Inj IVP SCH ×4 (03:00→21:41)
[2020-01-17] MEDS: dilTIAZem Premix 125mg/125ml 125 ML IVPB SCH ×3 (03:38→21:40)
--- NOTE | 2020-01-17 04:00 | NUR ---
NURSE NOTES: Bed bath given, linens changed, turned and repositioned, oral care and suctioning done. Patient is comfortable.
[2020-01-17] MEDS: LORazepam 1mg tab GT SCH ×3 (05:14→21:42)
[2020-01-17] MEDS: Metoprolol Tartrate 50mg tab NG SCH (05:14)
[2020-01-17] MEDS: metroNIDAZOLE 500mg tab ORAL SCH (05:14)
[2020-01-17 05:16] LABS: CREATININE 1.6 MG/DL (0.55-1.30); POTASSIUM 4.5 MMOL/L (3.5-5.1)
[2020-01-17] MEDS: Acetaminophen 650mg/20.3ml GT PRN (05:45)
--- NOTE | 2020-01-17 06:00 | NUR ---
NURSE NOTES: No changes. BP:120/77, HR:103, O2sat:100%. Patient is seen sleeping. Cardizem continues at 15mg
--- NOTE | 2020-01-17 06:25 | NUR ---
CASE MANAGEMENT: REVIEW SI: s/p COVID-19 . RESP FAILURE . A-FIB . NATALIE TRACHEOSTOMY 01/08 T 100.6 HR 123 RR 27 BP 149/87 SAT 97% MECH VENT FIO2 40 GLUCOSE 150 BUN 34 CR 1.6 REPEAT COVID -- NEG IS: MINOCYCLINE PO Q12HR CARDIZEM GTT D5W IVF @ 125ML/HR FLAGYL PO Q8HR CEFEPIME IV Q12HR PROTONIX IV Q12HR ICU STATUS DCP: PATIENT WILL NEED SUBACUTE PLACEMENT
--- NOTE | 2020-01-17 07:23 | NUR ---
NURSE HAND-OFF REPORT: Latest Vital Signs: Temperature 100.0 , Pulse 100 , B/P 135 /79 , Respiratory Rate 23 , O2 SAT 100 , Mechanical Ventilator, O2 Flow Rate . Vital Sign Comment: Stable EKG Rhythm: Atrial Fibrillation Rhythm change?: N Notified?: N -MD Gaviota UNDERWOOD Response: Latest Abreu Fall Score: 75 Fall Risk: High Risk Safety Measures: Call light Within Reach, Bed Alarm Zone 1, Side Rails Side Rails x3, Bed position Low and Locked. Fall Precautions: Yellow Socks Yellow Gown Door Sign Patient Fall Education Report given to .
--- NOTE | 2020-01-17 07:24 | NUR ---
NURSE NOTES: Received patient in bed. Asleep. Mechanical ventilator dependent. Shiley 8 tracheostomy noted, vent settings of AC 18, tidal volume 600, FiO2 40% PEEP of 5. On continuous GTF as tolerated. Lockett cath inplace. Bilateral soft wrist restraints noted. Airborne, droplet and contact isolation observed. Will continue plan of care.
[2020-01-17] MEDS: Pantoprazole Inj IVP SCH ×2 (08:30→21:41)
[2020-01-17] MEDS: Minocycline HCl 50mg cap ORAL SCH ×2 (08:30→21:41)
[2020-01-17] MEDS: Enoxaparin 60mg Inj SUBQ SCH (08:33)
[2020-01-17] MEDS: Bacitracin Oint 15gm Tube TOPIC SCH ×2 (08:49→21:10)
--- NOTE | 2020-01-17 08:55 | NUR ---
NURSE NOTES: Dr Keen at bedside. Patient Tolerating current ventilator settings
[2020-01-17] MEDS: Docusate 100mg/10ml Liq GT SCH ×2 (09:00→21:00)
--- NOTE | 2020-01-17 09:40 | NUR ---
NURSE NOTES: Dr. Dumont at bedside. said that he will check patient's chart.
--- NOTE | 2020-01-17 09:45 | General Progress Note ---
Subjective ROS Limited/Unobtainable: Yes Allergies: Coded Allergies: ERYTHROMYCIN BASE (Verified Allergy, Severe, 12/12/19) HALOPERIDOL (Verified Allergy, Unknown, 12/12/19) VANCOMYCIN (Unverified Adverse Reaction, Intermediate, Shortness of Breath, 12/12/19) Objective Last 24 Hour Vital Signs Date Time Temp Pulse Resp B/P (MAP) Pulse Ox O2 Delivery O2 Flow Rate FiO2 01/17/20 09:00 107 28 144/57 (86) 96 01/17/20 08:00 100.1 106 28 133/81 (98) 88 01/17/20 08:00 104 27 40 01/17/20 08:00 Mechanical Ventilator 01/17/20 08:00 40 01/17/20 07:00 100 23 135/79 (97) 100 01/17/20 06:15 100.0 01/17/20 06:00 113 26 140/79 (99) 100 01/17/20 05:44 110 24 135/82 100 01/17/20 05:14 123 24 149/87 97 01/17/20 05:14 123 149/87 01/17/20 05:00 121 27 149/87 (107) 01/17/20 04:00 40 01/17/20 04:00 Mechanical Ventilator 01/17/20 04:00 100.6 116 23 124/75 (91) 97 01/17/20 03:31 110 01/17/20 03:03 118 29 40 01/17/20 03:00 120 25 148/63 (91) 97 01/17/20 02:00 94 23 130/67 (88) 98 01/17/20 01:00 94 23 130/65 (86) 100 01/17/20 00:00 100.0 96 23 114/67 (83) 100 01/17/20 00:00 Mechanical Ventilator 01/16/20 23:20 95 01/16/20 23:08 116 136/68 01/16/20 23:00 115 26 136/68 (90) 99 01/16/20 22:59 98 21 40 01/16/20 22:00 93 21 105/57 (73) 100 01/16/20 21:56 92 24 107/68 100 01/16/20 21:56 100.0 01/16/20 21:26 94 20 102/61 100 01/16/20 21:00 93 20 112/68 (83) 100 01/16/20 20:00 Mechanical Ventilator 01/16/20 20:00 40 01/16/20 20:00 101.0 97 19 119/70 (86) 99 01/16/20 19:39 91 01/16/20 19:23 97 18 40 01/16/20 19:00 92 19 118/69 (85) 100 01/16/20 18:18 98.9 01/16/20 18:00 98.9 113 19 137/70 (92) 100 01/16/20 17:47 118 141/70 01/16/20 17:00 118 20 141/70 (93) 98 01/16/20 16:00 111 01/16/20 16:00 Mechanical Ventilator 01/16/20 16:00 40 01/16/20 16:00 109 19 109/66 (80) 100 01/16/20 15:25 106 19 40 01/16/20 15:00 97 19 110/58 (75) 100 01/16/20 14:00 95 24 112/57 (75) 97 01/16/20 13:10 98.7 01/16/20 13:09 98 24 100/61 92 01/16/20 13:00 98 24 100/61 (74) 92 01/16/20 12:39 150 24 134/79 100 01/16/20 12:16 150 134/79 01/16/20 12:00 108 01/16/20 12:00 40 01/16/20 12:00 105 24 148/85 (106) 92 01/16/20 12:00 Mechanical Ventilator 01/16/20 11:40 100 01/16/20 11:40 93 19 40 01/16/20 11:00 134 24 146/83 (104) 100 01/16/20 10:36 113 24 40 01/16/20 10:00 108 19 117/75 (89) 100 Intake and Output 01/16/20 01/17/20 18:59 06:59 Intake Total 1660 ml 2235.666 ml Output Total 590 ml 800 ml Balance 1070 ml 1435.666 ml Free Water 200 ml 90 ml IV Total 1280 ml 1425.666 ml Tube Feeding 180 ml 720 ml Output Urine Total 590 ml 800 ml # Bowel Movements 1 Laboratory Tests 01/16/20 11:42: Arterial Blood pH 7.359, Arterial Blood Partial Pressure CO2 44.1, Arterial Blood Partial Pressure O2 79.0, Arterial Blood HCO3 24.3, Arterial Blood Oxygen Saturation 94.7L, Arterial Blood Base Excess -1.2, Eugene Test Positive 01/16/20 12:55: Prothrombin Time 12.4H, Prothromb Time International Ratio 1.1, Activated Partial Thromboplast Time 25 01/16/20 15:25: Body Fluid Source Thoracentesis, Body Fluid Volume 24, Body Fluid Appearance Turbid, Body Fluid pH 7.0, Body Fluid RBC 7598417, Body Fluid Total Nucleated Cells 0734277, Body Fluid Polynuclear WBCs (%) 19, Body Fluid Mononuclear WBCs (%) 81, Body Fluid Mesothelial Cells (%) 0, Body Fluid Glucose [Pending], Body Fluid Total Protein [Pending], Body Fluid Lactate Dehydrogenase [Pending], Body Fluid Comment 01/17/20 04:00: Sodium Level 150H, Potassium Level 4.5, Chloride Level 121H, Carbon Dioxide Level 25, Anion Gap 4L, Blood Urea Nitrogen 34H, Creatinine 1.6H, Estimat Glomerular Filtration Rate 32.1, Glucose Level 154H, Calcium Level 8.0L, Lactate Dehydrogenase 187, Total Protein 5.9L Height (Feet): 5 Height (Inches): 6.00 Weight (Pounds): 343 General Appearance: morbidly obese, other - trach vent, restless, not following command Cardiovascular: regularly irregular Respiratory/Chest: rhonchi - bilaterally Abdomen: non tender Edema: moderate edema Skin: other - hematoma rle Assessment/Plan Problem List: (1) Schizophrenia ICD Codes: F20.9 - Schizophrenia, unspecified SNOMED: 58503997 (2) GERD (gastroesophageal reflux disease) ICD Codes: K21.9 - Gastro-esophageal reflux disease without esophagitis SNOMED: 867033750 (3) Lymphadema (4) Smoker ICD Codes: F17.200 - Nicotine dependence, unspecified, uncomplicated SNOMED: 65876955 (5) Atrial fibrillation with rapid ventricular response ICD Codes: I48.91 - Unspecified atrial fibrillation SNOMED: 176970801850253 (6) CKD (chronic kidney disease) stage 3, GFR 30-59 ml/min ICD Codes: N18.3 - Chronic kidney disease, stage 3 (moderate) SNOMED: 611355739 (7) NATALIE (acute kidney injury) ICD Codes: N17.9 - Acute kidney failure, unspecified SNOMED: 3350865, 77365486 (8) COPD (chronic obstructive pulmonary disease) ICD Codes: J44.9 - Chronic obstructive pulmonary disease, unspecified SNOMED: 92256197 (9) UGI bleed ICD Codes: K92.2 - Gastrointestinal hemorrhage, unspecified SNOMED: 21794824 (10) Dysphagia ICD Codes: R13.10 - Dysphagia, unspecified SNOMED: 83196715, 183988322 (11) UTI (urinary tract infection) ICD Codes: N39.0 - Urinary tract infection, site not specified SNOMED: 30312529 (12) ESBL (extended spectrum beta-lactamase) producing bacteria infection ICD Codes: A49.9 - Bacterial infection, unspecified; Z16.12 - Extended spectrum beta lactamase (ESBL) resistance SNOMED: 332910784 (13) Dehydration ICD Codes: E86.0 - Dehydration SNOMED: 29304601 (14) CHF exacerbation ICD Codes: I50.9 - Heart failure, unspecified SNOMED: 079711964, 49698344839298 (15) Acute respiratory failure ICD Codes: J96.00 - Acute respiratory failure, unspecified whether with hypoxia or hypercapnia SNOMED: 95476334 (16) COVID-19 ICD Codes: U07.1 - COVID-19 SNOMED: 129389346 (17) Pneumonia ICD Codes: J18.9 - Pneumonia, unspecified organism SNOMED: 523605953 Qualifiers: (18) Hematoma of lower leg ICD Codes: S80.10XA - Contusion of unspecified lower leg, initial encounter SNOMED: 872815268 (19) CKD (chronic kidney disease) stage 3, GFR 30-59 ml/min ICD Codes: N18.3 - Chronic kidney disease, stage 3 (moderate) SNOMED: 640176023 (20) Pancytopenia ICD Codes: D61.818 - Other pancytopenia SNOMED: 199746743 Status: stable Assessment/Plan: resp distress, icu, trach, vent, natalie on ckd,,now stable, I/O reviewed, he matoma RLE stop eliquis , lovenox now iv protonix, rx esbl and + vre uti,g+ cocci , remains high risk, d/w psych, ID, cardiology, chf and on lasix ,covid neg prior positive this admission now neg, , grave prognosis, fungemia treated with micafungin likely will be unable to wean for a long time, agitated when tried to wean , ,all lab and orders reviewed , no active bleeding , low Hb to transfuse 01/08 preop, done, , reculture, d/w dr curran needs trach, done,Needs gastrostomy unable to sign, done Dr Curran thinks that she might be able to wean gradually after trach placed, febrile again and infiltrates, trach scheduled 01/08, done, pancytopenia stable may be from sepsis or meds(remdesivir, chlorpromazine, micafungin, linezolid), posssible primary BM disease, to observe ,immunofixation ordered,negative, hypernatremia and free water gt,D5w iv stop lasix titrate sedatives , some distress earlier short cpap trial, cardizem drip for rapid afib, s/p thoracentesis culture pending icu time 32 min Benjamin Dumont MD Jan 17, 2020 09:45
--- NOTE | 2020-01-17 10:29 | NUR ---
RD ASSESSMENT & RECOMMENDATIONS SEE CARE ACTIVITY FOR COMPLETE ASSESSMENT DAILY ESTIMATED NEEDS: Needs based on Obesity, Cardiac, DM, NATALIE, Critical Care/ 80.5kg abw 22-25kg/IBW (59kg) kcals/kg 9014-3670 total kcals 1-2 g protein/kg 80-161 g total protein 20-25 mL/kg 5002-8252 total fluid mLs NUTRITION DIAGNOSIS: 21) Class III Obesity R/T lifestyle factors? excessive energy intake as evidenced by pt w/ BMI >50, @ 245% IBW. 2) Altered nutrition related lab values R/T diabetes, altered lipid metabolism, cardiac hx, NATALIE as evidenced by A1C of 7.1, elev triglyceride 239-> wnl, elev BNP 4671->2682, elev creat (1.7->4.3 -> 1.8, elev BUN (92 -> 39 trend down), elev K (5.4, 5.2 -> wnl->5.3-> wnl), 3) Swallowing difficulty R/T decreased cognitive fxn, respiratory status as evidenced by s/p NGT insertion (12/17), s/p worsening respiratoy status, Covid-19 postive, orally intubated (12/22), s/p trach placement (01/08), S/p PEG placement. CURRENT TF: Glucerna 1.5 @60ml/hr ENTERAL NUTRITION RECOMMENDATIONS: Glucerna 1.5 @ 40ml/hr x 24 hrs to provide 960ml, 1440kcal, 79g prot, 729ml free water * Lower Glucerna 1.5 to a goal of 40ml/hr x24 hrs * HOB over 30 degrees/ water flush per MD ADDITIONAL RECOMMENDATIONS: 1) Calibrated bedscale wt: fluctuating daily wts 2) Monitor renal fxn and lytes: creat stable 1.7-1.8, improved 3) Wound healing: add Nephrovite x 1, Vit C 250mg QD, Armand BID 4) Monitor BGs closely w/ Decadron, now off. 5) Feed at goal w/ hemodynamic stability . .
[2020-01-17] MEDS: Metoprolol Tartrate 50mg tab GT SCH ×3 (11:09→23:36)
--- NOTE | 2020-01-17 12:25 | General Progress Note ---
Subjective ROS Limited/Unobtainable: No Allergies: Coded Allergies: ERYTHROMYCIN BASE (Verified Allergy, Severe, 12/12/19) HALOPERIDOL (Verified Allergy, Unknown, 12/12/19) VANCOMYCIN (Unverified Adverse Reaction, Intermediate, Shortness of Breath, 12/12/19) Objective Last 24 Hour Vital Signs Date Time Temp Pulse Resp B/P (MAP) Pulse Ox O2 Delivery O2 Flow Rate FiO2 01/17/20 12:00 91 01/17/20 11:09 106 144/85 01/17/20 11:00 106 22 144/85 (104) 100 01/17/20 10:00 102 24 141/71 (94) 100 01/17/20 09:00 107 28 144/57 (86) 96 01/17/20 08:00 100.1 106 28 133/81 (98) 88 01/17/20 08:00 104 27 40 01/17/20 08:00 Mechanical Ventilator 01/17/20 08:00 40 01/17/20 07:29 99 01/17/20 07:00 100 23 135/79 (97) 100 01/17/20 06:15 100.0 01/17/20 06:00 113 26 140/79 (99) 100 01/17/20 05:44 110 24 135/82 100 01/17/20 05:14 123 24 149/87 97 01/17/20 05:14 123 149/87 01/17/20 05:00 121 27 149/87 (107) 01/17/20 04:00 40 01/17/20 04:00 Mechanical Ventilator 01/17/20 04:00 100.6 116 23 124/75 (91) 97 01/17/20 03:31 110 01/17/20 03:03 118 29 40 01/17/20 03:00 120 25 148/63 (91) 97 01/17/20 02:00 94 23 130/67 (88) 98 01/17/20 01:00 94 23 130/65 (86) 100 01/17/20 00:00 100.0 96 23 114/67 (83) 100 01/17/20 00:00 Mechanical Ventilator 01/16/20 23:20 95 01/16/20 23:08 116 136/68 01/16/20 23:00 115 26 136/68 (90) 99 01/16/20 22:59 98 21 40 01/16/20 22:00 93 21 105/57 (73) 100 01/16/20 21:56 92 24 107/68 100 01/16/20 21:56 100.0 01/16/20 21:26 94 20 102/61 100 01/16/20 21:00 93 20 112/68 (83) 100 01/16/20 20:00 Mechanical Ventilator 01/16/20 20:00 40 01/16/20 20:00 101.0 97 19 119/70 (86) 99 01/16/20 19:39 91 01/16/20 19:23 97 18 40 01/16/20 19:00 92 19 118/69 (85) 100 01/16/20 18:18 98.9 01/16/20 18:00 98.9 113 19 137/70 (92) 100 01/16/20 17:47 118 141/70 01/16/20 17:00 118 20 141/70 (93) 98 01/16/20 16:00 111 01/16/20 16:00 Mechanical Ventilator 01/16/20 16:00 40 01/16/20 16:00 109 19 109/66 (80) 100 01/16/20 15:25 106 19 40 01/16/20 15:00 97 19 110/58 (75) 100 01/16/20 14:00 95 24 112/57 (75) 97 01/16/20 13:10 98.7 01/16/20 13:09 98 24 100/61 92 01/16/20 13:00 98 24 100/61 (74) 92 01/16/20 12:39 150 24 134/79 100 Intake and Output 01/16/20 01/17/20 19:00 07:00 Intake Total 1770 ml 2235.666 ml Output Total 580 ml 790 ml Balance 1190 ml 1445.666 ml Free Water 200 ml 90 ml IV Total 1330 ml 1425.666 ml Tube Feeding 240 ml 720 ml Output Urine Total 580 ml 790 ml # Bowel Movements 2 Laboratory Tests 01/16/20 12:55: Prothrombin Time 12.4H, Prothromb Time International Ratio 1.1, Activated Partial Thromboplast Time 25 01/16/20 15:25: Body Fluid Source Thoracentesis, Body Fluid Volume 24, Body Fluid Appearance Turbid, Body Fluid pH 7.0, Body Fluid RBC 8802225, Body Fluid Total Nucleated Cells [id number], Body Fluid Polynuclear WBCs (%) 19, Body Fluid Mononuclear WBCs (%) 81, Body Fluid Mesothelial Cells (%) 0, Body Fluid Glucose [Pending], Body Fluid Total Protein [Pending], Body Fluid Lactate Dehydrogenase [Pending], Body Fluid Comment 01/17/20 04:00: Sodium Level 150H, Potassium Level 4.5, Chloride Level 121H, Carbon Dioxide Level 25, Anion Gap 4L, Blood Urea Nitrogen 34H, Creatinine 1.6H, Estimat Glomerular Filtration Rate 32.1, Glucose Level 154H, Calcium Level 8.0L, Lactate Dehydrogenase 187, Total Protein 5.9L Height (Feet): 5 Height (Inches): 6.00 Weight (Pounds): 343 General Appearance: lethargic EENT: normal ENT inspection Neck: supple Cardiovascular: normal rate Respiratory/Chest: decreased breath sounds Abdomen: normal bowel sounds, non tender, soft Extremities: non-tender Assessment/Plan Problem List: (1) CKD (chronic kidney disease) stage 3, GFR 30-59 ml/min ICD Codes: N18.3 - Chronic kidney disease, stage 3 (moderate) SNOMED: 286989985 (2) COPD (chronic obstructive pulmonary disease) ICD Codes: J44.9 - Chronic obstructive pulmonary disease, unspecified SNOMED: 16326803 (3) Smoker ICD Codes: F17.200 - Nicotine dependence, unspecified, uncomplicated SNOMED: 02887143 (4) GERD (gastroesophageal reflux disease) ICD Codes: K21.9 - Gastro-esophageal reflux disease without esophagitis SNOMED: 585442496 (5) Atrial fibrillation with RVR ICD Codes: I48.91 - Unspecified atrial fibrillation SNOMED: 335451924468631 Status: stable Assessment/Plan: pepcid fu H&H monitor labs bowel regimen fu cardiology recs icu care ppi cbc in am s/p Trach and PEG GTF>>> will decrease to 40 monitor for residuals Mervin Victoria MD Jan 17, 2020 12:25
--- NOTE | 2020-01-17 13:10 | NUR ---
NURSE NOTES: Dr. Meek at bedside. Patient is still on Cardizem drip 15mg/hour.
[2020-01-17] MEDS ORDERED: metroNIDAZOLE 500mg tab GT SCH (14:00)
--- NOTE | 2020-01-17 15:20 | Infectious Diseases Prog Note ---
Assessment/Plan Assessment/Plan ASSESSMENT AND PLAN: 1. MDR acinetobacter pna - S-minocycline, I-colistin, polymyxin hx esbl e.coli uti/pyelonephritis, sepsis, leukocytosis, fevers mrsa and vre colonization, NATALIE, respiratory distress/failure Fungemia - + yeast in blood - ID still pending hx mrsa pna/acinetobacter pna hx VRE uti covid-19 infection right leg swelling and redness noted, ? cellulitis, ? infected hematoma, ? wound infection ? empyema, thoracentesis analysis noted, culture pending - minocycline, iv bactrim, zosyn - s/p micafungin - surveillance cultures ordered for fevers - f/u on cultures - s/p remdesivir, on dexamethasone - monitor labs and chest x-ray - ? debridement right leg per surgery when patient stable - d/w surgery, no intervention at this time - d/w RN - thoracentesis planned - fevers mildly improved - ? neutropenic, leukopenia better 2. Chronic kidney failure, acute renal failure. 3. COPD. 4. Pulmonary followup. 5. Renal followup. 6. History of falls. 7. Atrial fibrillation. Cardiology followup. 8. Obesity. 9. Gait disorder. 10. Schizophrenia. 11. Homeless. 12. Allergic to erythromycin, haloperidol, and vancomycin. 13. Social history is negative. 14. Family history is noncontributory. 15. MAR is noted. 16. Case discussed with RN. 17. Continue treatment per Dr. Dumont and consultants. Subjective Constitutional: Reports: fever, other - trach, vent, no pressors HEENT: Reports: congestion Respiratory: Reports: shortness of breath Cardiovascular: Reports: chest pain Gastrointestinal/Abdominal: Denies: nausea, vomiting, diarrhea Genitourinary: Reports: other - + trivedi Allergies: Coded Allergies: ERYTHROMYCIN BASE (Verified Allergy, Severe, 12/12/19) HALOPERIDOL (Verified Allergy, Unknown, 12/12/19) VANCOMYCIN (Unverified Adverse Reaction, Intermediate, Shortness of Breath, 12/12/19) Objective Last 24 Hour Vital Signs Date Time Temp Pulse Resp B/P (MAP) Pulse Ox O2 Delivery O2 Flow Rate FiO2 01/17/20 15:00 119 22 131/82 (98) 88 01/17/20 14:49 119 22 131/82 88 01/17/20 14:19 100 22 149/82 99 01/17/20 14:00 100 22 149/82 (104) 99 01/17/20 13:00 100.2 101 150/88 (108) 99 01/17/20 12:00 98 22 159/82 (107) 100 01/17/20 12:00 Mechanical Ventilator 01/17/20 12:00 91 01/17/20 12:00 40 01/17/20 11:09 106 144/85 01/17/20 11:00 106 22 144/85 (104) 100 01/17/20 10:00 102 24 141/71 (94) 100 01/17/20 09:00 107 28 144/57 (86) 96 01/17/20 08:00 100.1 106 28 133/81 (98) 88 01/17/20 08:00 104 27 40 01/17/20 08:00 Mechanical Ventilator 01/17/20 08:00 40 01/17/20 07:29 99 01/17/20 07:00 100 23 135/79 (97) 100 01/17/20 06:15 100.0 01/17/20 06:00 113 26 140/79 (99) 100 01/17/20 05:44 110 24 135/82 100 01/17/20 05:14 123 24 149/87 97 01/17/20 05:14 123 149/87 01/17/20 05:00 121 27 149/87 (107) 01/17/20 04:00 40 01/17/20 04:00 Mechanical Ventilator 01/17/20 04:00 100.6 116 23 124/75 (91) 97 01/17/20 03:31 110 01/17/20 03:03 118 29 40 01/17/20 03:00 120 25 148/63 (91) 97 01/17/20 02:00 94 23 130/67 (88) 98 01/17/20 01:00 94 23 130/65 (86) 100 01/17/20 00:00 100.0 96 23 114/67 (83) 100 01/17/20 00:00 Mechanical Ventilator 01/16/20 23:20 95 01/16/20 23:08 116 136/68 01/16/20 23:00 115 26 136/68 (90) 99 01/16/20 22:59 98 21 40 01/16/20 22:00 93 21 105/57 (73) 100 01/16/20 21:56 92 24 107/68 100 01/16/20 21:56 100.0 01/16/20 21:26 94 20 102/61 100 01/16/20 21:00 93 20 112/68 (83) 100 01/16/20 20:00 Mechanical Ventilator 01/16/20 20:00 40 01/16/20 20:00 101.0 97 19 119/70 (86) 99 01/16/20 19:39 91 01/16/20 19:23 97 18 40 01/16/20 19:00 92 19 118/69 (85) 100 01/16/20 18:18 98.9 01/16/20 18:00 98.9 113 19 137/70 (92) 100 01/16/20 17:47 118 141/70 01/16/20 17:00 118 20 141/70 (93) 98 01/16/20 16:00 111 01/16/20 16:00 Mechanical Ventilator 01/16/20 16:00 40 01/16/20 16:00 109 19 109/66 (80) 100 01/16/20 15:25 106 19 40 Height (Feet): 5 Height (Inches): 6.00 Weight (Pounds): 343 HEENT: normocephalic, atraumatic, anicteric Respiratory/Chest: crackles/rales, rhonchi - bilaterally Cardiovascular: normal rate, regular rhythm Abdomen: normal bowel sounds, soft, non tender Genitourinary: other Skin: no rash Chest x-ray - 11/17/19 - Procedure: XRAY Chest 1v Indication: Shortness of breath Technique: One view of the chest Comparison: 12/17/2019 Findings: The heart is enlarged. There is bilateral interstitial and airspace disease is again demonstrated, probably unchanged allowing for differences in degree of inspiration. Impression: Unchanged, over one day, findings as above. Chest x-ray - 12/21/19 - Procedure: XRAY Chest 1v Indication: Shortness of breath Technique: One view of the chest Comparison: 12/19/2019 Findings: The heart is enlarged. Bilateral extensive infiltrates are again demonstrated, stable to slightly worse allowing for differences in exposure technique. There is suggestion of increasing pleural fluid on the left. Nasogastric tube is again demonstrated. Impression: Stable to worsened bilateral extensive infiltrates, since exam of 2 days prior Increasing left pleural effusion Chest x-ray - 12/23/19 - IMPRESSION: 1. No significant interval change from the prior chest x-ray. 2. Persistent moderate left pleural effusion and mild right pleural effusion. 3. Pulmonary vascular congestion. 4. Persistent opacity in the left lung base, which may represent atelectasis versus pneumonia. Chest x-ray - 12/25/19 - Procedure: XRAY Chest 1v Procedure: XRAY Chest 1v Reason for study: Reason For Exam: SOB Comparison films: 12/24/2019. FINDINGS: The tracheal tube and NG tube remain in place. Vascular prominence and bilateral hazy alveolar densities are unchanged. Cardiomegaly and small effusions also unchanged. The bony thorax appear unremarkable. IMPRESSION: NO SIGNIFICANT CHANGE COMPARED TO PREVIOUS EXAM. 12/26/19 - Procedure: XRAY Chest 1v Procedure: XRAY Chest 1v Reason for study: Reason For Exam: SOB Comparison films: 12/25/2019. FINDINGS: Endotracheal tube and NG tube remain in place. Hazy bilateral alveolar densities are essentially unchanged given the difference in technique. Cardiomegaly and right effusion again noted. The bony thorax appear unremarkable. IMPRESSION: NO SIGNIFICANT CHANGE COMPARED TO PREVIOUS EXAM. Chest x-ray - 12/28/19 - Procedure: XRAY Chest 1v Indication: Reason For Exam: SOB Technique: Single AP view of the chest. Comparison: Chest radiograph dated 12/27/2019 Findings: Exam is again noted to be diagnostically limited due to underpenetration, patient rotation, and exclusion of part of the left hemithorax from the [id number]. Within these limitations: No significant change in appearance of visualized cardiomediastinal silhouette. Unchanged layering right pleural effusion with associated basilar airspace opacities. Likely retrocardiac consolidation, unchanged. No apical pneumothoraces. Unchanged enteric and endotracheal tubes. Unchanged left PICC. Chest x-ray - 12/30/19 - FINDINGS: Distal tip of ET tube is above devika. Distal tip of the enteric tube is in stomach. Stable left arm PICC line with distal tip likely in the left subclavian vein. Cardiac silhouette is within normal limits allowing for portable and rotated technique. Low lung volumes with elevated left hemidiaphragm. Again noted is a moderate right effusion with patchy infiltrates in the right mid to lower lung. Probable retrocardiac infiltrates. IMPRESSION: Little interval change in moderate right effusion and pneumonia/aspiration. Suspected retrocardiac infiltrate. The distal tip of the left arm PICC line is not well seen past the level of the left mid subclavian vein. [place] location is in the cavoatrial junction. Recommend advancement. <MYCVCSECTION> Chest x-ray - 01/04/20 - Procedure: XRAY Chest 1v Indication: Dyspnea Technique: One view of the chest Comparison: 01/02/2020 Findings: Bilateral interstitial and airspace congestion, right pleural effusion, cardiomegaly persists, unchanged. Tube and line positions are unchanged Impression: Unchanged, over one day, findings as above. Chest x-ray - 01/06/20 - IMPRESSION: 1. Endotracheal tube terminates in the region of the lower thoracic trachea, approximately 2.6 cm above the devika. Enteric tube is difficult to visualize distally. 2. Similar opacities predominantly in the mid and lower lungs which may represent combination of pleural effusions and atelectasis versus pneumonia versus edema. Chest x-ray - 01/07/20 - Procedure: XRAY Chest 1v Indication: Shortness of breath Technique: One view of the chest Comparison: 01/06/2020 Findings: Stable satisfactory positions of endotracheal and orogastric tubes. Mild interstitial congestion and hazy ankle opacities are again demonstrated bilaterally. There appears to be a small amount of pleural fluid bilaterally, probably unchanged. Impression: Unchanged, over one day, findings as above. Chest x-ray - 01/10/20 - Procedure: XRAY Chest 1v Indication: There is a breath Technique: One view of the chest Comparison: 01/08/2020 Findings: Interim conversion of endotracheal tube to a tracheostomy, appearing well positioned. Orogastric tube remains. Bilateral interstitial and airspace inf iltrates versus edema persists, unchanged. Small bilateral pleural effusions persist, unchanged. Impression: Interim tracheostomy placement. No radiographically evident complication Stable bilateral pleural and parenchymal disease Chest x-ray - 01/13/20 - FINDINGS/IMPRESSION: Midline tracheostomy tube. Left upper extremity PICC line terminates in the left brachycephalic vein, unchanged. Mild-moderate vascular congestion, which is mildly increased when compared to January 10, 2020. Moderate left pleural effusion, which has mildly increased when compared to January 10, 2020. No pneumothorax. Cardiomegaly. Calcified aorta. Chest x-ray - 01/16/20 - Procedure: XRAY Chest 1v Indication: Shortness of breath Technique: One view of the chest Comparison: 01/15/2020 Findings: Bilateral interstitial and airspace infiltrates versus edema appears slightly increased from the prior exam. Right pleural effusion appears slightly increased. Left pleural fluid probably present, smaller than the right, stable. The heart remains enlarged. Tracheostomy, left arm PICC remain. Impression: Slightly increased pulmonary infiltrates versus edema and right pleural effusion, over one day Microbiology Date/Time Source Procedure Growth Status 01/16/20 15:25 Body Fluid AFB Specimen Processing Tissue - Final Resulted 01/16/20 15:25 Body Fluid Acid Fast Bacilli Smear - Final Resulted 01/16/20 15:25 Body Fluid Acid Fast Bacilli Culture Pending Resulted 01/16/20 15:25 Thoracic Fluid Gram Stain - Final Resulted 01/16/20 15:25 Thoracic Fluid Body Fluid Culture Pending Resulted 01/15/20 05:33 Blood Blood Culture - Preliminary NO GROWTH AFTER 24 HOURS Resulted 01/15/20 01:20 Nasopharynx SARS-CoV-2 RdRp Gene Assay - Final Complete Laboratory Tests Test 01/16/20 15:25 01/17/20 04:00 Body Fluid Source Thoracentesis Body Fluid Volume 24 mL Body Fluid Appearance Turbid (Clear) Body Fluid pH 7.0 Body Fluid RBC 0121121 /CUMM Body Fluid Total Nucleated Cells [id number] /CUMM Body Fluid Polynuclear WBCs (%) 19 % Body Fluid Mononuclear WBCs (%) 81 % Body Fluid Mesothelial Cells (%) 0 % Body Fluid Glucose Pending Body Fluid Total Protein Pending Body Fluid Lactate Dehydrogenase Pending Body Fluid Comment Sodium Level 150 MMOL/L (136-145) H Potassium Level 4.5 MMOL/L (3.5-5.1) Chloride Level 121 MMOL/L (98-107) H Carbon Dioxide Level 25 MMOL/L (21-32) Anion Gap 4 mmol/L (5-15) L Blood Urea Nitrogen 34 mg/dL (7-18) H Creatinine 1.6 MG/DL (0.55-1.30) H Estimat Glomerular Filtration Rate 32.1 mL/min (>60) Glucose Level 154 MG/DL (74-106) H Calcium Level 8.0 MG/DL (8.5-10.1) L Lactate Dehydrogenase 187 U/L (81-234) Total Protein 5.9 G/DL (6.4-8.2) L Current Medications Medications (Trade) Dose Ordered Sig/Shiraz Route PRN Reason Start Time Stop Time Status Last Admin Dose Admin Acetaminophen (Tylenol) 650 mg Q4H PRN GT Mild Pain (Pain Scale 1-3) 01/12/20 10:00 02/11/20 09:59 01/15/20 05:41 Acetaminophen (Tylenol) 650 mg Q4H PRN GT Temp >100.5 01/12/20 10:00 02/11/20 09:59 01/17/20 05:45 Acetazolamide (Diamox) 500 mg EVERY 12 HOURS GT 01/17/20 21:00 02/01/20 17:59 Albuterol Sulfate (Proventil MDI) 2 puff Q4H PRN INH Shortness of Breath 12/24/19 10:30 03/23/20 10:29 01/12/20 09:44 Ascorbic Acid (Vitamin C) 500 mg BEDTIME GT 01/17/20 21:00 02/16/20 20:59 Bacitracin (Bacitracin 15gm tube) 1 applic EVERY 12 HOURS TOPIC 01/16/20 11:00 04/15/20 10:59 01/17/20 08:49 Cefepime HCl 1 gm/ Dextrose 50 ml @ 100 mls/hr Q12HR IVPB 01/12/20 21:00 01/19/20 20:59 01/17/20 08:34 Chlorhexidine Gluconate (Jessie-Hex 2%) 1 applic DAILY@1999 TOPIC 12/24/19 20:00 03/23/20 19:59 01/16/20 20:00 Clotrimazole (Lotrimin) 1 applic EVERY 12 HOURS TOPIC 01/05/20 09:00 03/12/20 08:59 01/17/20 08:49 Dextrose 1,000 ml @ 75 mls/hr [id number] IV 01/14/20 18:00 02/13/20 16:29 01/17/20 13:20 Diltiazem HCl 125 ml @ 0 mls/hr Q24H IVPB 01/16/20 18:00 01/17/20 17:59 01/17/20 12:37 Docusate Sodium (Colace) 100 mg EVERY 12 HOURS GT 01/17/20 09:00 01/24/20 08:59 Enoxaparin Sodium (Lovenox) 60 mg DAILY SUBQ 01/13/20 12:00 04/12/20 11:59 01/17/20 08:33 Lorazepam (Ativan) 1 mg EVERY 8 HOURS GT 01/14/20 18:00 01/21/20 17:59 01/17/20 14:19 Magnesium Hydroxide (Mom) 30 ml HSPRN PRN NG Constipation 12/22/19 15:15 01/21/20 15:14 01/02/20 22:20 Metoclopramide HCl (Reglan) 5 mg Q6H IVP 01/05/20 09:15 02/04/20 09:14 01/17/20 14:20 Metoprolol Tartrate (Lopressor) 50 mg Q6HR GT 01/17/20 12:00 04/12/20 17:59 01/17/20 11:09 Metronidazole (Flagyl) 500 mg EVERY 8 HOURS GT 01/17/20 14:00 01/19/20 21:59 01/17/20 14:19 Midazolam HCl (Versed 2mg/2ml vial) 2 mg Q1H PRN IVP Agitation 01/10/20 17:15 01/17/20 17:14 01/17/20 03:00 Minocycline HCl (Minocin) 100 mg Q12HR ORAL 01/16/20 21:00 01/23/20 20:59 01/17/20 08:30 Morphine Sulfate (Morphine Sulfate) 2 mg Q4H PRN IVP Moderate Pain (Pain Scale 4-6) 01/14/20 12:00 01/21/20 11:59 01/14/20 17:54 Morphine Sulfate (Morphine Sulfate) 4 mg Q4H PRN IVP Severe Pain (Pain Scale 7-10) 01/14/20 12:00 01/21/20 11:59 01/16/20 17:48 Multivitamins (Multivitamins W/ Minerals 15ml Liquid) 15 ml Q24H GT 01/18/20 11:00 02/17/20 10:59 Pantoprazole (Protonix) 40 mg EVERY 12 HOURS IVP 01/01/20 21:00 01/31/20 20:59 01/17/20 08:30 Polyethylene Glycol (Miralax) 17 gm BEDTIME GT 01/17/20 21:00 01/28/20 20:59 Quetiapine Fumarate (SEROqueL) 150 mg EVERY 8 HOURS GT 01/17/20 14:00 02/25/20 21:59 01/17/20 14:19 Aleisha Coronel MD Jan 17, 2020 15:20
--- NOTE | 2020-01-17 16:12 | Surgery Progress Note ---
Surgery Progress Note Subjective Procedure Performed tracheostomy Additional Comments ill appearing on support no n/v labs noted draining leg wound stable Objective Last 24 Hour Vital Signs Date Time Temp Pulse Resp B/P (MAP) Pulse Ox O2 Delivery O2 Flow Rate FiO2 01/17/20 15:18 121 28 60 01/17/20 15:00 119 22 131/82 (98) 88 01/17/20 14:49 119 22 131/82 88 01/17/20 14:19 100 22 149/82 99 01/17/20 14:00 100 22 149/82 (104) 99 01/17/20 13:00 100.2 101 150/88 (108) 99 01/17/20 12:00 98 22 159/82 (107) 100 01/17/20 12:00 Mechanical Ventilator 01/17/20 12:00 91 01/17/20 12:00 40 01/17/20 11:28 114 28 40 01/17/20 11:09 106 144/85 01/17/20 11:00 106 22 144/85 (104) 100 01/17/20 10:00 102 24 141/71 (94) 100 01/17/20 09:00 107 28 144/57 (86) 96 01/17/20 08:00 100.1 106 28 133/81 (98) 88 01/17/20 08:00 104 27 40 01/17/20 08:00 Mechanical Ventilator 01/17/20 08:00 40 01/17/20 07:29 99 01/17/20 07:00 100 23 135/79 (97) 100 01/17/20 06:15 100.0 01/17/20 06:00 113 26 140/79 (99) 100 01/17/20 05:44 110 24 135/82 100 01/17/20 05:14 123 24 149/87 97 01/17/20 05:14 123 149/87 01/17/20 05:00 121 27 149/87 (107) 01/17/20 04:00 40 01/17/20 04:00 Mechanical Ventilator 01/17/20 04:00 100.6 116 23 124/75 (91) 97 01/17/20 03:31 110 01/17/20 03:03 118 29 40 01/17/20 03:00 120 25 148/63 (91) 97 01/17/20 02:00 94 23 130/67 (88) 98 01/17/20 01:00 94 23 130/65 (86) 100 01/17/20 00:00 100.0 96 23 114/67 (83) 100 01/17/20 00:00 Mechanical Ventilator 01/16/20 23:20 95 01/16/20 23:08 116 136/68 01/16/20 23:00 115 26 136/68 (90) 99 01/16/20 22:59 98 21 40 01/16/20 22:00 93 21 105/57 (73) 100 01/16/20 21:56 92 24 107/68 100 01/16/20 21:56 100.0 01/16/20 21:26 94 20 102/61 100 01/16/20 21:00 93 20 112/68 (83) 100 01/16/20 20:00 Mechanical Ventilator 01/16/20 20:00 40 01/16/20 20:00 101.0 97 19 119/70 (86) 99 01/16/20 19:39 91 01/16/20 19:23 97 18 40 01/16/20 19:00 92 19 118/69 (85) 100 01/16/20 18:18 98.9 01/16/20 18:00 98.9 113 19 137/70 (92) 100 01/16/20 17:47 118 141/70 01/16/20 17:00 118 20 141/70 (93) 98 I&O Intake and Output 01/16/20 01/17/20 19:00 07:00 Intake Total 1770 ml 2235.666 ml Output Total 580 ml 790 ml Balance 1190 ml 1445.666 ml Free Water 200 ml 90 ml IV Total 1330 ml 1425.666 ml Tube Feeding 240 ml 720 ml Output Urine Total 580 ml 790 ml # Bowel Movements 2 Dressing: saturated Cardiovascular: RSR Respiratory: decreased breath sounds Abdomen: non-tender, present bowel sounds Extremities: edema, tenderness, cyanosis Laboratory Tests Test 01/17/20 04:00 Sodium Level 150 MMOL/L (136-145) H Potassium Level 4.5 MMOL/L (3.5-5.1) Chloride Level 121 MMOL/L (98-107) H Carbon Dioxide Level 25 MMOL/L (21-32) Anion Gap 4 mmol/L (5-15) L Blood Urea Nitrogen 34 mg/dL (7-18) H Creatinine 1.6 MG/DL (0.55-1.30) H Estimat Glomerular Filtration Rate 32.1 mL/min (>60) Glucose Level 154 MG/DL (74-106) H Calcium Level 8.0 MG/DL (8.5-10.1) L Lactate Dehydrogenase 187 U/L (81-234) Total Protein 5.9 G/DL (6.4-8.2) L Plan Problems: (1) Urinary tract infection (2) CHF exacerbation (3) History of schizophrenia (4) Atrial fibrillation with RVR (5) Schizophrenia (6) GERD (gastroesophageal reflux disease) (7) Smoker (8) Atrial fibrillation with rapid ventricular response (9) Lymphadema (10) COPD (chronic obstructive pulmonary disease) (11) CKD (chronic kidney disease) stage 3, GFR 30-59 ml/min (12) NATALIE (acute kidney injury) (13) Dehydration (14) Dysphagia (15) UTI (urinary tract infection) (16) UGI bleed (17) ESBL (extended spectrum beta-lactamase) producing bacteria infection (18) Constipation (19) Lactic acidosis (20) Tinea cruris (21) Onychomycosis (22) Emesis (23) Essential hypertension (24) Anemia (25) Cough (26) Depression (27) Depression (28) Edema (29) Rash (30) Opiate dependence (31) Opiate dependence (32) Opiate dependence (33) Opiate dependence (34) Pyelonephritis (35) Sepsis (36) UTI (urinary tract infection) (37) Nausea and vomiting (38) Abdominal pain Assessment & Plan: [age]-year-old female obese white abdominal pain deep tissue injury identified limited mobility on HD. KUB noted tube in place continue meds feeds Does not seem obstructed We will monitor lines noted. plan change resume tube feeds labs okay FINDINGS: Lower thorax: Obscuration of the left costophrenic angle suggestive of pleural effusion. Intraperitoneal space: No free air. Gastrointestinal tract: Unremarkable. No dilation. Bones/joints: Unremarkable. Tubes, lines and devices: The nasogastric tube has the tip at the mid inferior aspect of the gastric body. Other findings: Nonspecific gas pattern. Single frontal view of the abdomen demonstrates tip of the enteric tube and distal side-port projecting over the stomach. Gas is identified within the nondistended large bowel. There is a paucity of small bowel gas seen. Partially visualized left pleural effusion. No other significant interval change. (39) Chest pain (40) Chest pain (41) Nausea (42) Obesity (43) Chronic ulcer of leg (44) Chronic ulcer of leg (45) Chronic ulcer of leg (46) ACS (acute coronary syndrome) (47) Acute chest pain (48) Encounter for dressing change or suture removal (49) Left leg cellulitis (50) Acute encephalopathy (51) Encounter for wound re-check (52) Intractable nausea and vomiting (53) Infection due to ESBL-producing Escherichia coli (54) Chronic venous stasis (55) Change of dressing (56) Change of dressing (57) Change of dressing (58) Change of dressing (59) Change of dressing (60) Change of dressing (61) Change of dressing (62) Change of dressing (63) ESBL urine (64) Lymphadema (65) Lymphedema (66) Lymphedema (67) Lymphedema (68) Lymphedema (69) Lymphedema (70) Lymphedema (71) Lymphedema (72) Lymphedema (73) Open wound of foot (74) Open wound of foot (75) cellulitis (76) chronic lymphedema (77) chronic lymphedema (78) chronic lymphedema (79) hypertension uncontrolled (80) hypertension uncontrolled (81) Intertrigo (82) Sciatica (83) Cellulitis (84) Schizophrenia (85) Chronic bronchitis (86) HTN (hypertension) (87) Venous stasis ulcers (88) Medication refill (89) Chest pain, atypical (90) BMI 45.0-49.9, adult (91) Lymphedema of both lower extremities (92) hypertension uncontrolled (93) hypertension uncontrolled (94) hypertension uncontrolled (95) tenia corpus (96) Deep tissue injury Assessment & Plan: Morbidly obese pt whom presented on admission with Pressure injuries, Edemae bilat lower extremities eschar to dorsal aspects of metatarsals. Pt is very demanding of staff and can be resistive to repositioning. DTPI noted to L Sacrum(L)5.5cm x (W)2.5cm. Base of Pressure Injury is Maroon and indurated with surrounding non-blanchable erythema DTPI R Sacrum(L)5.5cm x (W)2.3cm. Base of Pressure Injury is maroon with purpuric center that is fluctuant. Pt complained of tenderness when minimally palpated. Bilat lower extremities are edematous . Dry eschar noted to nail matrix and tip of L 1st metatarsal, Dorsal L 2nd metatarsal, R 2nd and R 4th metatarsals. Both heels are boggy with non-Blanchable erythema. blisters forming on Right lower extremity anterior tibia. not infected cellulitis / edema on b/l le stable cont abx Tx.Plan: Apply Moisture Barrier Paste to Sacrum R and L gluteal cheeks. Cover with Optifoam drsgs. Change every 3 days and prn. Apply Betadine to dry eschar metatarsals both feet Daily. Apply Cavilon Skin Barrier to both heels. Cover each heel with Optifoam drsgs. C hange every 7days and prn. Reposition at least every 2hours or as tolerated. Off-load heels with pillow. right leg hematoma stable critically ill and edema on right leg has compromised dermis over the hematoma. will likely need debridement once improved (97) COVID-19 Assessment & Plan: ++ on vent weaning abx as per ID (98) Respiratory failure Assessment & Plan: not able to wean safely will plan for trach case discussed with medical team, pulm, icu. recommended to trach given medical condition. medically indicated and recommended. s/p trach 01/08 s/p trach more comfortable less agitated on vent weaning (99) Pneumonia Juan Manuel Buckner Jan 17, 2020 16:12
--- NOTE | 2020-01-17 16:40 | Pulmonolgy Critical Care Note ---
Critical Care - Asmt/Plan Assessment/Plan: ASSESSMENT acute hypoxemic hypercapnic resp failure, requiring intubation 12/22 s/p trach 01/08 COVID 19 PNA sepsis fungemia UTI with E coli ESBL UTI VRE possible aspiration PNA - s/p treatment Moderate R pleural effusion -01/15 - R thoracentesis 500 cc COPD Atrial fibrillation with RVR CHF Acute renal failure on CKD Severe anemia dysphagia, s/p PEG 01/08 Thrombocytopenia Status post ground fall Tobacco dependency Morbid obesity probable GARY R knee edema and hematoma, possible cellulitis Hyper Na due to free water deficit PLAN OF CARE s/p trach, cont PS trials as tolerated now on Cardizem gtt , weaning trial on hold monitor ABG f/u pleural fluid studies Monitor for pleural fluid reaccumulation repeated COVID 19 01/14 NGT s/p steroids IV ( started 12/23) continue for total of 10 days till 01/02 s/p Remdesivir (started 12/24 ), dc 12/30 initial diagnoses with COVID 19 at [facility] 11/29, was not hypoxic and not intubated, was not treated with Remdesivivr , only received empiric abx for PNA DVT prophylaxis with Lovenox Monitor volumes, diuresis per Dr. Dumont afib rate control - now on Cardizem gtt s/p PEG 01/09, Abx per ID Monitor CBC previously evaluated by bioethics -> DNR/DNI status appropriate Time Spent (Minutes): 40 Critical Care - Objective Last 24 Hour Vital Signs Date Time Temp Pulse Resp B/P (MAP) Pulse Ox O2 Delivery O2 Flow Rate FiO2 01/17/20 16:00 40 01/17/20 16:00 100.2 112 160/83 (108) 100 01/17/20 16:00 Mechanical Ventilator 01/17/20 16:00 116 01/17/20 15:18 121 28 60 01/17/20 15:00 119 22 131/82 (98) 88 01/17/20 14:49 119 22 131/82 88 01/17/20 14:19 100 22 149/82 99 01/17/20 14:00 100 22 149/82 (104) 99 01/17/20 13:00 100.2 101 150/88 (108) 99 01/17/20 12:00 98 22 159/82 (107) 100 01/17/20 12:00 Mechanical Ventilator 01/17/20 12:00 91 01/17/20 12:00 40 01/17/20 11:28 114 28 40 01/17/20 11:09 106 144/85 01/17/20 11:00 106 22 144/85 (104) 100 01/17/20 10:00 102 24 141/71 (94) 100 01/17/20 09:00 107 28 144/57 (86) 96 01/17/20 08:00 100.1 106 28 133/81 (98) 88 01/17/20 08:00 104 27 40 01/17/20 08:00 Mechanical Ventilator 01/17/20 08:00 40 01/17/20 07:29 99 01/17/20 07:00 100 23 135/79 (97) 100 01/17/20 06:15 100.0 01/17/20 06:00 113 26 140/79 (99) 100 01/17/20 05:44 110 24 135/82 100 01/17/20 05:14 123 24 149/87 97 01/17/20 05:14 123 149/87 01/17/20 05:00 121 27 149/87 (107) 01/17/20 04:00 40 01/17/20 04:00 Mechanical Ventilator 01/17/20 04:00 100.6 116 23 124/75 (91) 97 01/17/20 03:31 110 01/17/20 03:03 118 29 40 01/17/20 03:00 120 25 148/63 (91) 97 01/17/20 02:00 94 23 130/67 (88) 98 01/17/20 01:00 94 23 130/65 (86) 100 01/17/20 00:00 100.0 96 23 114/67 (83) 100 01/17/20 00:00 Mechanical Ventilator 01/16/20 23:20 95 01/16/20 23:08 116 136/68 01/16/20 23:00 115 26 136/68 (90) 99 01/16/20 22:59 98 21 40 01/16/20 22:00 93 21 105/57 (73) 100 01/16/20 21:56 92 24 107/68 100 01/16/20 21:56 100.0 01/16/20 21:26 94 20 102/61 100 01/16/20 21:00 93 20 112/68 (83) 100 01/16/20 20:00 Mechanical Ventilator 01/16/20 20:00 40 01/16/20 20:00 101.0 97 19 119/70 (86) 99 01/16/20 19:39 91 01/16/20 19:23 97 18 40 01/16/20 19:00 92 19 118/69 (85) 100 01/16/20 18:18 98.9 01/16/20 18:00 98.9 113 19 137/70 (92) 100 01/16/20 17:47 118 141/70 01/16/20 17:00 118 20 141/70 (93) 98 Lungs: rales Heart: HR/BP stable Abdomen: soft, non-tender Extremities: other - +edema Micro: Microbiology Date/Time Source Procedure Growth Status 01/16/20 15:25 Body Fluid AFB Specimen Processing Tissue - Final Resulted 01/16/20 15:25 Body Fluid Acid Fast Bacilli Smear - Final Resulted 01/16/20 15:25 Body Fluid Acid Fast Bacilli Culture Pending Resulted 01/16/20 15:25 Thoracic Fluid Gram Stain - Final Resulted 01/16/20 15:25 Thoracic Fluid Body Fluid Culture Pending Resulted 01/15/20 05:33 Blood Blood Culture - Preliminary NO GROWTH AFTER 24 HOURS Resulted 01/15/20 01:20 Nasopharynx SARS-CoV-2 RdRp Gene Assay - Final Complete Accucheck: 136 Critical Care - Subjective ROS Limited/Unobtainable: Yes Interval Events: Thoracentesis with 500 cc of purulent looking material. CXR shows resolution of R effusion. No fevers. Cultures no growth to date. Condition: stable FI02: 40 Vent Support Breath Rate: 18 Vent Support Mode: AC Vent Tidal Volume: 600 Sputum Amount: Moderate PEEP: 5.0 PIP: 45 Tube Feeding Amount: 40 I&O: Intake and Output 01/16/20 01/17/20 19:00 07:00 Intake Total 1770 ml 2235.666 ml Output Total 580 ml 790 ml Balance 1190 ml 1445.666 ml Free Water 200 ml 90 ml IV Total 1330 ml 1425.666 ml Tube Feeding 240 ml 720 ml Output Urine Total 580 ml 790 ml # Bowel Movements 2 Colt Keen MD Jan 17, 2020 16:40
--- NOTE | 2020-01-17 17:45 | NUR ---
NURSE NOTES: Bedbath provided by 2 staff. FiO2 increased to 100%. Noted desaturation with FiO2 40%.
--- NOTE | 2020-01-17 19:17 | NUR ---
NURSE HAND-OFF REPORT: Latest Vital Signs: Temperature 100.2 , Pulse 116 , B/P 148 /76 , Respiratory Rate 32 , O2 SAT 100 , Mechanical Ventilator, O2 Flow Rate . Vital Sign Comment: On continuous IVF of D5W running at 75 ml/hour. EKG Rhythm: Atrial Fibrillation Rhythm change?: N On continuous diltiazem drip at 15mg/hour. Latest Abreu Fall Score: 75 Fall Risk: High Risk Safety Measures: Call light Within Reach, Bed Alarm Zone 1, Side Rails Side Rails x3, Bed position Low and Locked. Fall Precautions: Yellow Socks Yellow Gown Door Sign Patient Fall Education Airborne, droplet, contact isolation endorsed. Report given to Bre Fox RN.
--- NOTE | 2020-01-17 19:18 | NUR ---
NURSE NOTES: Received patient from NOEL Walton. Will continue plan of care.
--- NOTE | 2020-01-17 20:00 | NUR ---
NURSE NOTES: Patient is trach'd; Shiley 8 to vent setting of AC:18, TV:600, FiO2:100%, PEEP:5, O2sat:100%. She is easily awakens to stimuli. Left nare NGT running Glucerna 1.5 @ goal of 40ml/hr. GT patent and flushing well. Lockett catheter in place and draining. Right leg ulcer dressing dry and intact and awaiting wound consult. 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 Isolation precautions noted. Will continue plan of care
[2020-01-17] MEDS ORDERED: D5 1/2NS 1000ml IV ONE (20:58)
[2020-01-17] MEDS ORDERED: Sterile Water Irrig 1000ml IRRIG ONE (20:58)
[2020-01-17] MEDS ORDERED: Tubing Blood Filter IV ONE (20:58)
[2020-01-17] MEDS ORDERED: Tubing IV Secondary IV ONE (20:58)
[2020-01-17] MEDS ORDERED: NS 275ml ONE ×2 (20:58→21:15)
[2020-01-17] MEDS: Miralax 17gm pkt GT SCH (21:00)
[2020-01-17] MEDS: BACTRIM IV SCH (21:40)
[2020-01-17] MEDS: Dyna-Hex 2% Top Sol 2oz TOPIC SCH (21:40)
[2020-01-17] MEDS: D5W IV SCH (21:40)
[2020-01-17] MEDS: Ascorbic Acid 500mg tab GT SCH (21:41)
--- NOTE | 2020-01-17 22:00 | NUR ---
NURSE NOTES: Patient is seen resting comfortably. FiO2 remains at 100%. O2sat averaging 95%. Pulse ox probe not accurate due to moving. Patient shows no signs and symptoms of distress.
[2020-01-18] VITALS (33 sets, daily range): BP systolic 97–158; BP diastolic 37–145
--- NOTE | 2020-01-18 | NUR ---
NURSE NOTES: BP:144/79, HR:124. No changes in condition.
--- NOTE | 2020-01-18 00:42 | Cardiology Progress Note ---
Subjective DATE OF SERVICE: Jan 17, 2020 Doing poorly - remains in ICU in critical condition with guarded prognosis. Remains on vent support - failed weaning trials; now s/p trach S/p diagnostic thorocentesis. BP range remaining low normal range. Remains COVID19 positive. Monitor: AFIb with better rate control on cardizem gtts. Venous Duplex: negative for DVT Renal fxn and free water deficit worsening CXR (01/15/20) no change in bilateral infiltrates/edema and eff'n - s/p trach Objective Last 24 Hour Vital Signs Date Time Temp Pulse Resp B/P (MAP) Pulse Ox O2 Delivery O2 Flow Rate FiO2 01/18/20 00:00 100.4 132 31 153/80 (104) 95 01/18/20 00:00 Mechanical Ventilator 01/18/20 00:00 100 01/17/20 23:54 127 35 100 01/17/20 23:36 135 167/85 01/17/20 23:36 135 24 167/85 97 01/17/20 23:00 138 31 140/96 (111) 82 01/17/20 22:00 151 35 154/94 (114) 95 01/17/20 21:42 153 24 174/91 100 01/17/20 21:29 Mechanical Ventilator 01/17/20 21:00 131 34 161/87 (111) 85 01/17/20 20:00 100.0 119 28 124/96 (105) 86 01/17/20 20:00 Mechanical Ventilator 01/17/20 19:56 118 34 100 01/17/20 19:00 116 32 148/76 (100) 01/17/20 18:00 128 33 134/81 (98) 100 01/17/20 17:53 130 148/82 01/17/20 17:45 100 01/17/20 17:00 130 22 148/82 (104) 100 01/17/20 16:00 40 01/17/20 16:00 100.2 112 160/83 (108) 100 01/17/20 16:00 Mechanical Ventilator 01/17/20 16:00 116 01/17/20 15:18 121 28 60 01/17/20 15:00 119 22 131/82 (98) 88 01/17/20 14:49 119 22 131/82 88 01/17/20 14:19 100 22 149/82 99 01/17/20 14:00 100 22 149/82 (104) 99 01/17/20 13:00 100.2 101 150/88 (108) 99 01/17/20 12:00 98 22 159/82 (107) 100 01/17/20 12:00 Mechanical Ventilator 01/17/20 12:00 91 01/17/20 12:00 40 01/17/20 11:28 114 28 40 01/17/20 11:09 106 144/85 01/17/20 11:00 106 22 144/85 (104) 100 01/17/20 10:00 102 24 141/71 (94) 100 01/17/20 09:00 107 28 144/57 (86) 96 01/17/20 08:00 100.1 106 28 133/81 (98) 88 01/17/20 08:00 104 27 40 01/17/20 08:00 Mechanical Ventilator 01/17/20 08:00 40 01/17/20 07:29 99 01/17/20 07:00 100 23 135/79 (97) 100 01/17/20 06:15 100.0 01/17/20 06:00 113 26 140/79 (99) 100 01/17/20 05:44 110 24 135/82 100 01/17/20 05:14 123 24 149/87 97 01/17/20 05:14 123 149/87 01/17/20 05:00 121 27 149/87 (107) 01/17/20 04:00 40 01/17/20 04:00 Mechanical Ventilator 01/17/20 04:00 100.6 116 23 124/75 (91) 97 01/17/20 03:31 110 01/17/20 03:03 118 29 40 01/17/20 03:00 120 25 148/63 (91) 97 01/17/20 02:00 94 23 130/67 (88) 98 01/17/20 01:00 94 23 130/65 (86) 100 ROS: unchanged from 12/12/19 HEENT: Orally intubated, Mechanically Ventilated, Thin secretions ET Tube, other - NGtube RHYTHM: NSR, ST LUNGS: diminished breath sounds, right-sided rhonchi CARDIAC: normal S1 and S2, irregularly irregular ABDOMEN: other - obese EXTREMITIES: moderate edema - mostly non pitting, other - hematoma right leg Laboratory Tests Test 01/17/20 04:00 Sodium Level 150 MMOL/L (136-145) H Potassium Level 4.5 MMOL/L (3.5-5.1) Chloride Level 121 MMOL/L (98-107) H Carbon Dioxide Level 25 MMOL/L (21-32) Anion Gap 4 mmol/L (5-15) L Blood Urea Nitrogen 34 mg/dL (7-18) H Creatinine 1.6 MG/DL (0.55-1.30) H Estimat Glomerular Filtration Rate 32.1 mL/min (>60) Glucose Level 154 MG/DL (74-106) H Calcium Level 8.0 MG/DL (8.5-10.1) L Lactate Dehydrogenase 187 U/L (81-234) Total Protein 5.9 G/DL (6.4-8.2) L Microbiology Date/Time Source Procedure Growth Status 01/16/20 15:25 Body Fluid AFB Specimen Processing Tissue - Final Resulted 01/16/20 15:25 Body Fluid Acid Fast Bacilli Smear - Final Resulted 01/16/20 15:25 Body Fluid Acid Fast Bacilli Culture Pending Resulted 01/16/20 15:25 Thoracic Fluid Gram Stain - Final Resulted 01/16/20 15:25 Thoracic Fluid Body Fluid Culture Pending Resulted 01/15/20 05:33 Blood Blood Culture - Preliminary NO GROWTH AFTER 24 HOURS Resulted 01/15/20 01:20 Nasopharynx SARS-CoV-2 RdRp Gene Assay - Final Complete Assessment/Plan Assessment/Plan CRITICAL AND GUARDED Acute respiratory failure - s/p trach Acute on chronic respiratory acidosis AFiB with labile heart rates, and now persistent RVR. CHF, ac/chr diastolic BLE edema Sepsis with shock obesity COPD with bronchospasm Acute renal failure - worsening Pleural effusion GI bleeding Anemia - multifactorial, now worse Covid 19 PNA Hypokalemia Dehydration/hypernatremia worsened Hypertension/HHD with labile BP - now stable range. Vent support Advance beta yves and oral diltiazem, then taper off cardizem gtts. PRBC transfusion for hb below 7gm/dl Monitor acid/base parameters. 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 Agree with DNR Jerome Meek MD Jan 18, 2020 00:42
[2020-01-18] MEDS: D5W IV SCH ×4 (01:15→20:30)
[2020-01-18] MEDS: BACTRIM IV SCH ×4 (01:15→20:30)
[2020-01-18] MEDS: dilTIAZem HCl 90mg tab ORAL SCH ×2 (01:16→06:04)
--- NOTE | 2020-01-18 02:00 | NUR ---
NURSE NOTES: Bed given, linens changed, oral care provided and suctioning. Turned and repositioned.
[2020-01-18] MEDS: Metoclopramide 10mg/2ml Inj IVP SCH ×4 (02:51→20:32)
[2020-01-18] MEDS: Acetaminophen 650mg/20.3ml GT PRN (02:51)
--- NOTE | 2020-01-18 04:00 | NUR ---
NURSE NOTES: Blood drawn peripherally for AM results. COVID swabbed through nasopharynx and sent to lab. Left upper arm PICC dressing changed.
[2020-01-18] MEDS: dilTIAZem Premix 125mg/125ml 125 ML IVPB SCH (06:02)
[2020-01-18] MEDS: LORazepam 1mg tab GT SCH ×3 (06:05→22:51)
[2020-01-18] MEDS: Metoprolol Tartrate 50mg tab GT SCH ×4 (06:05→23:21)
[2020-01-18 06:07] LABS: BASOPHILS % (AUTO) 1.2 % (0.0-2.0); EOSINOPHILS % (AUTO) 0.9 % (0.0-3.0); HEMATOCRIT 26.7 % (37.0-47.0); HEMOGLOBIN 8.4 G/DL (12.0-16.0); LYMPHOCYTES % (AUTO) 13.3 % (20.0-45.0); MEAN CORPUSCULAR VOLUME 94 FL (80-99); MONOCYTES % (AUTO) 7.4 % (1.0-10.0); NEUTROPHILS % (AUTO) 77.3 % (45.0-75.0); PLATELET COUNT 174 K/UL (150-450); RED BLOOD COUNT 2.83 M/UL (4.20-5.40); RED CELL DISTRIBUTION WIDTH 19.9 % (11.6-14.8); WHITE BLOOD COUNT 4.9 K/UL (4.8-10.8)
[2020-01-18 06:15] LABS: CALCIUM 8.5 MG/DL (8.5-10.1); CREATININE 1.5 MG/DL (0.55-1.30); POTASSIUM 4.5 MMOL/L (3.5-5.1)
[2020-01-18 06:18] LABS: PHOSPHORUS 2.6 MG/DL (2.5-4.9)
--- NOTE | 2020-01-18 07:15 | NUR ---
NURSE NOTES: Cardizem drip stopped, heart rate below 100.
--- NOTE | 2020-01-18 07:17 | NUR ---
NURSE HAND-OFF REPORT: Latest Vital Signs: Temperature 100.3 , Pulse 87 , B/P 117 /62 , Respiratory Rate 30 , O2 SAT 93 , Mechanical Ventilator, O2 Flow Rate . Vital Sign Comment: Stable EKG Rhythm: Atrial Fibrillation Rhythm change?: N Notified?: N -MD Gaviota UNDERWOOD Response: Latest Abreu Fall Score: 75 Fall Risk: High Risk Safety Measures: Call light Within Reach, Bed Alarm Zone 1, Side Rails Side Rails x3, Bed position Low and Locked. Fall Precautions: Yellow Socks Yellow Gown Door Sign Patient Fall Education Report given to .
--- NOTE | 2020-01-18 07:18 | NUR ---
NURSE NOTES: Received patient in bed. Asleep. Mechanical ventilator dependent. Shiley 8 tracheostomy noted, vent settings of AC 18, tidal volume 600, FiO2 100% PEEP of 5. On continuous GTF as tolerated. Lockett cath inplace. Bilateral soft wrist restraints noted. Airborne, droplet and contact isolation observed. Will continue plan of care.
--- NOTE | 2020-01-18 08:40 | NUR ---
NURSE NOTES: Luz Bowen NP at bedside. STAT ABG order noted. Patient remains mechanical vent dependent, Ac mode 18, Tidal Volume 600, FiO2 100%, PEEP of 5.
[2020-01-18] MEDS: Docusate 100mg/10ml Liq GT SCH ×2 (09:00→20:30)
--- NOTE | 2020-01-18 09:14 | NUR ---
RADIOLOGY DEPT., CHEST X-RAY DONE.-P.DYE
--- NOTE | 2020-01-18 09:20 | Pulmonolgy Critical Care Note ---
Bowen Luz REGIONAL ACCOUNT MANAGER 01/18/20 0920: Critical Care - Asmt/Plan Assessment/Plan: ASSESSMENT acute hypoxemic hypercapnic resp failure, requiring intubation 12/22 s/p trach 01/08 COVID 19 PNA sepsis fungemia UTI with E coli ESBL UTI VRE possible aspiration PNA - s/p treatment Moderate R pleural effusion COPD Atrial fibrillation with RVR CHF Acute renal failure on CKD Severe anemia dysphagia, s/p PEG 01/08 Thrombocytopenia Status post ground fall Tobacco dependency Morbid obesity probable GARY R knee edema and hematoma, possible cellulitis Hyper Na due to free water deficit PLAN OF CARE s/p trach, cont PS trials as tolerated-not tolerated developed tachycardia /A fib with RVR off Cardizem gtt , weaning trial on hold since FiO2 up to 100% ABG and CXR this am pending s/p tap 01/15 -500 ml pleurla fluid pleural fl cx 01/15 NGT , AFB smear NGT repeated COVID 19 01/14 NGT s/p steroids IV ( started 12/23) continue for total of 10 days till 01/02 s/p Remdesivir (started 12/24 ), dc 12/30 initial diagnoses with COVID 19 at [facility] 11/29, was not hypoxic and not intubated, was not treated with Remdesivivr , only received empiric abx for PNA DVT prophylaxis with Lovenox on diuresis with Lasix, monitor volumes closely creat remains stable consider d/c diamox afib rate control - s/p Cardizem gtt GI prophylaxis with PPI s/p PEG 01/09, asp precautions, SCX 01/07 + ACB MDR BCX 01/07 NGTD UCX 01/07 NGT stool C dif 01/10 NGT UA 01/12 unremarkable remains febrile s/p Polymyxin , Zyvox and Zosyn -as per ID recs, now on Minocycline or possible cellulitis R leg as well as cefepime and Flagyl severely leukopenic ? due to meds vs ? primary BM disease -resolving monitor counts immunofixation screen unremarkable transfuse to keep Hgb > 7 , s/p transfusion 01/13 previously evaluated by bioethics -> DNR/DNI status appropriate if not weanable in few days., consider transfer to LTAC for further management case discussed and evaluated by supervising physician Critical Care - Objective Last 24 Hour Vital Signs Date Time Temp Pulse Resp B/P (MAP) Pulse Ox O2 Delivery O2 Flow Rate FiO2 01/18/20 08:00 100 01/18/20 08:00 Mechanical Ventilator 01/18/20 07:45 89 29 114/65 (81) 93 01/18/20 07:30 88 30 114/66 (82) 95 01/18/20 07:15 89 29 119/71 (87) 94 01/18/20 07:01 86 31 100 01/18/20 07:00 87 30 117/62 (80) 93 01/18/20 06:45 84 29 116/68 (84) 92 01/18/20 06:35 76 31 123/54 93 01/18/20 06:30 86 29 123/54 (77) 89 01/18/20 06:15 81 29 106/58 (74) 91 01/18/20 06:05 84 113/64 01/18/20 06:05 84 24 113/64 100 01/18/20 06:04 84 113/84 01/18/20 06:00 100.3 82 29 113/64 (80) 87 01/18/20 05:45 82 27 103/61 (75) 89 01/18/20 05:00 104 27 125/75 (92) 93 01/18/20 04:00 100 01/18/20 04:00 121 01/18/20 04:00 101.0 124 32 146/87 (106) 90 01/18/20 04:00 Mechanical Ventilator 01/18/20 03:57 127 32 100 01/18/20 03:21 101.0 01/18/20 03:00 130 31 147/67 (93) 01/18/20 02:00 122 33 140/79 (99) 01/18/20 01:16 139 147/83 01/18/20 01:00 115 30 139/77 (97) 01/18/20 00:00 100.4 132 31 153/80 (104) 95 01/18/20 00:00 Mechanical Ventilator 01/18/20 00:00 100 01/17/20 23:54 127 35 100 01/17/20 23:36 135 167/85 01/17/20 23:36 135 24 167/85 97 01/17/20 23:33 157 01/17/20 23:00 138 31 140/96 (111) 82 01/17/20 22:00 151 35 154/94 (114) 95 01/17/20 21:42 153 24 174/91 100 01/17/20 21:29 Mechanical Ventilator 01/17/20 21:00 131 34 161/87 (111) 85 01/17/20 20:00 100.0 119 28 124/96 (105) 86 01/17/20 20:00 Mechanical Ventilator 01/17/20 19:56 118 34 100 01/17/20 19:16 118 01/17/20 19:00 116 32 148/76 (100) 01/17/20 18:00 128 33 134/81 (98) 100 01/17/20 17:53 130 148/82 01/17/20 17:45 100 01/17/20 17:00 130 22 148/82 (104) 100 01/17/20 16:00 40 01/17/20 16:00 100.2 112 160/83 (108) 100 01/17/20 16:00 Mechanical Ventilator 01/17/20 16:00 116 01/17/20 15:18 121 28 60 01/17/20 15:00 119 22 131/82 (98) 88 01/17/20 14:49 119 22 131/82 88 01/17/20 14:19 100 22 149/82 99 01/17/20 14:00 100 22 149/82 (104) 99 01/17/20 13:00 100.2 101 150/88 (108) 99 01/17/20 12:00 98 22 159/82 (107) 100 01/17/20 12:00 Mechanical Ventilator 01/17/20 12:00 91 01/17/20 12:00 40 01/17/20 11:28 114 28 40 01/17/20 11:09 106 144/85 01/17/20 11:00 106 22 144/85 (104) 100 01/17/20 10:00 102 24 141/71 (94) 100 Objective: CONDITION: critical General Appearance: morbidly obese , sedated, generalized anasarca ; on vent AC 600-18-100% PEEP 5 Lines, tubes and drains: LUE PICC new , intact HEENT: normocephalic, atraumatic, anicteric, Neck: trach with Shiley # 8, secretions moderate amount, yellow color, thick consistency Respiratory/Chest: chest wall non-tender, no accessory muscle use, BS overall clear, Cardiovascular/Chest: irregularly irregular - A fib . tachy , distant heart sounds, Abdomen: normal bowel sounds, non tender , obese, soft ; G tube with TF : Lockett Extremities: no calf tenderness, moderate edema - +3 BLE, R knee with large hematoma, edema, Skin Exam: warm/dry, multiple tattoos Neurologic: sedated Musculoskeletal: normal muscle bulk Micro: Microbiology Date/Time Source Procedure Growth Status 01/16/20 15:25 Body Fluid AFB Specimen Processing Tissue - Final Resulted 01/16/20 15:25 Body Fluid Acid Fast Bacilli Smear - Final Resulted 01/16/20 15:25 Body Fluid Acid Fast Bacilli Culture Pending Resulted 01/16/20 15:25 Thoracic Fluid Gram Stain - Final Resulted 01/16/20 15:25 Thoracic Fluid Body Fluid Culture Pending Resulted Accucheck: 136 Critical Care - Subjective ROS Limited/Unobtainable: Yes Interval Events: still with fevers, leukopenia resolved s/p tap 01/15 500 ml CXR post tap no PTX tolerated weaning for some time 01/15 then developed tachycardia and placed back to AC desaturated yesterday, now on 100 % FIO2 ABG and CXR pending Cardizem gtt stopped this am Condition: critical IV Access: PICC - LUE intact EKG Rhythm: Atrial Fibrillation FI02: 100 Vent Support Breath Rate: 18 Vent Support Mode: AC Vent Tidal Volume: 600 Sputum Amount: Scant PEEP: 5.0 PIP: 43 Tube Feeding Amount: 40 I&O: Intake and Output 01/17/20 01/18/20 19:00 07:00 Intake Total 2375.25 ml 2847.9160 ml Output Total 325 ml 590 ml Balance 2050.25 ml 2257.9160 ml Free Water 200 ml 60 ml IV Total 1395.25 ml 2247.9160 ml Tube Feeding 580 ml 480 ml Other 200 ml 60 ml Output Urine Total 325 ml 590 ml # Bowel Movements 2 2 Colt Keen MD 01/18/20 1419: Critical Care - Asmt/Plan Assessment/Plan: Patient seen and examined with REGIONAL ACCOUNT MANAGER and the above formulated assessment and plan. R pleural fluid growing from cultures. glucose was low. All consistent with empyema. Will order CT chest to better evaluate. May need CT-guided chest tube vs thoracic surgery evaluation. Time Spent (Minutes): 40 - cc Luz Bowen NP Jan 18, 2020 09:20 Colt Keen MD Jan 18, 2020 14:19
--- NOTE | 2020-01-18 09:25 | NUR ---
NURSE NOTES: Dr. Dumont in the unit. Informed regarding patient's condition. Today's ABG result showed to Dr. Dumont. No new order at this time.
[2020-01-18] MEDS ORDERED: D5 1/2NS 1000ml IV ONE (09:26)
[2020-01-18] MEDS ORDERED: NS 275ml ONE ×2 (09:26→18:07)
--- NOTE | 2020-01-18 09:35 | General Progress Note ---
Subjective ROS Limited/Unobtainable: Yes Allergies: Coded Allergies: ERYTHROMYCIN BASE (Verified Allergy, Severe, 12/12/19) HALOPERIDOL (Verified Allergy, Unknown, 12/12/19) VANCOMYCIN (Unverified Adverse Reaction, Intermediate, Shortness of Breath, 12/12/19) Objective Last 24 Hour Vital Signs Date Time Temp Pulse Resp B/P (MAP) Pulse Ox O2 Delivery O2 Flow Rate FiO2 01/18/20 08:00 100 01/18/20 08:00 Mechanical Ventilator 01/18/20 07:45 89 29 114/65 (81) 93 01/18/20 07:30 88 30 114/66 (82) 95 01/18/20 07:15 89 29 119/71 (87) 94 01/18/20 07:01 86 31 100 01/18/20 07:00 87 30 117/62 (80) 93 01/18/20 06:45 84 29 116/68 (84) 92 01/18/20 06:35 76 31 123/54 93 01/18/20 06:30 86 29 123/54 (77) 89 01/18/20 06:15 81 29 106/58 (74) 91 01/18/20 06:05 84 113/64 01/18/20 06:05 84 24 113/64 100 01/18/20 06:04 84 113/84 01/18/20 06:00 100.3 82 29 113/64 (80) 87 01/18/20 05:45 82 27 103/61 (75) 89 01/18/20 05:00 104 27 125/75 (92) 93 01/18/20 04:00 100 01/18/20 04:00 121 01/18/20 04:00 101.0 124 32 146/87 (106) 90 01/18/20 04:00 Mechanical Ventilator 01/18/20 03:57 127 32 100 01/18/20 03:21 101.0 01/18/20 03:00 130 31 147/67 (93) 01/18/20 02:00 122 33 140/79 (99) 01/18/20 01:16 139 147/83 01/18/20 01:00 115 30 139/77 (97) 01/18/20 00:00 100.4 132 31 153/80 (104) 95 01/18/20 00:00 Mechanical Ventilator 01/18/20 00:00 100 01/17/20 23:54 127 35 100 01/17/20 23:36 135 167/85 01/17/20 23:36 135 24 167/85 97 01/17/20 23:33 157 01/17/20 23:00 138 31 140/96 (111) 82 01/17/20 22:00 151 35 154/94 (114) 95 01/17/20 21:42 153 24 174/91 100 01/17/20 21:29 Mechanical Ventilator 01/17/20 21:00 131 34 161/87 (111) 85 01/17/20 20:00 100.0 119 28 124/96 (105) 86 01/17/20 20:00 Mechanical Ventilator 01/17/20 19:56 118 34 100 01/17/20 19:16 118 01/17/20 19:00 116 32 148/76 (100) 01/17/20 18:00 128 33 134/81 (98) 100 01/17/20 17:53 130 148/82 01/17/20 17:45 100 01/17/20 17:00 130 22 148/82 (104) 100 01/17/20 16:00 40 01/17/20 16:00 100.2 112 160/83 (108) 100 01/17/20 16:00 Mechanical Ventilator 01/17/20 16:00 116 01/17/20 15:18 121 28 60 01/17/20 15:00 119 22 131/82 (98) 88 01/17/20 14:49 119 22 131/82 88 01/17/20 14:19 100 22 149/82 99 01/17/20 14:00 100 22 149/82 (104) 99 01/17/20 13:00 100.2 101 150/88 (108) 99 01/17/20 12:00 98 22 159/82 (107) 100 01/17/20 12:00 Mechanical Ventilator 01/17/20 12:00 91 01/17/20 12:00 40 01/17/20 11:28 114 28 40 01/17/20 11:09 106 144/85 01/17/20 11:00 106 22 144/85 (104) 100 01/17/20 10:00 102 24 141/71 (94) 100 Intake and Output 01/17/20 01/18/20 19:00 07:00 Intake Total 2375.25 ml 2847.9160 ml Output Total 325 ml 590 ml Balance 2050.25 ml 2257.9160 ml Free Water 200 ml 60 ml IV Total 1395.25 ml 2247.9160 ml Tube Feeding 580 ml 480 ml Other 200 ml 60 ml Output Urine Total 325 ml 590 ml # Bowel Movements 2 2 Laboratory Tests 01/18/20 04:00: White Blood Count 4.9, Red Blood Count 2.83L, Hemoglobin 8.4L, Hematocrit 26.7L, Mean Corpuscular Volume 94, Mean Corpuscular Hemoglobin 29.7, Mean Corpuscular Hemoglobin Concent 31.5L, Red Cell Distribution Width 19.9H, Platelet Count 174, Mean Platelet Volume 6.6, Neutrophils (%) (Auto) 77.3H, Lymphocytes (%) (Auto) 13.3L, Monocytes (%) (Auto) 7.4, Eosinophils (%) (Auto) 0.9, Basophils (%) (Auto) 1.2, Sodium Level 150H, Potassium Level 4.5, Chloride Level 119H, Carbon Dioxide Level 22, Anion Gap 9, Blood Urea Nitrogen 29H, Creatinine 1.5H, Estimat Glomerular Filtration Rate 34.7, Glucose Level 154H, Calcium Level 8.5, Phosphorus Level 2.6, Magnesium Level 2.8H 01/18/20 09:05: Arterial Blood pH 7.338L, Arterial Blood Partial Pressure CO2 39.3, Arterial Blood Partial Pressure O2 64.2L, Arterial Blood HCO3 20.6L, Arterial Blood Oxygen Saturation 89.6*L, Arterial Blood Base Excess -4.8L, Eugene Test Positive Height (Feet): 5 Height (Inches): 6.00 Weight (Pounds): 343 General Appearance: morbidly obese, other - trach vent Neck: normal alignment Cardiovascular: regularly irregular Respiratory/Chest: rhonchi - bilaterally Abdomen: non tender, soft Edema: moderate edema Neurologic: unresponsive Assessment/Plan Problem List: (1) Schizophrenia ICD Codes: F20.9 - Schizophrenia, unspecified SNOMED: 40520549 (2) GERD (gastroesophageal reflux disease) ICD Codes: K21.9 - Gastro-esophageal reflux disease without esophagitis SNOMED: 465490753 (3) Lymphadema (4) Smoker ICD Codes: F17.200 - Nicotine dependence, unspecified, uncomplicated SNOMED: 14910714 (5) Atrial fibrillation with rapid ventricular response ICD Codes: I48.91 - Unspecified atrial fibrillation SNOMED: 553711090820440 (6) CKD (chronic kidney disease) stage 3, GFR 30-59 ml/min ICD Codes: N18.3 - Chronic kidney disease, stage 3 (moderate) SNOMED: 363627912 (7) NATALIE (acute kidney injury) ICD Codes: N17.9 - Acute kidney failure, unspecified SNOMED: 8794886, 23413267 (8) COPD (chronic obstructive pulmonary disease) ICD Codes: J44.9 - Chronic obstructive pulmonary disease, unspecified SNOMED: 12650308 (9) UGI bleed ICD Codes: K92.2 - Gastrointestinal hemorrhage, unspecified SNOMED: 10238238 (10) Dysphagia ICD Codes: R13.10 - Dysphagia, unspecified SNOMED: 75663822, 764578887 (11) UTI (urinary tract infection) ICD Codes: N39.0 - Urinary tract infection, site not specified SNOMED: 61256108 (12) ESBL (extended spectrum beta-lactamase) producing bacteria infection ICD Codes: A49.9 - Bacterial infection, unspecified; Z16.12 - Extended spectrum beta lactamase (ESBL) resistance SNOMED: 862685630 (13) Dehydration ICD Codes: E86.0 - Dehydration SNOMED: 67709259 (14) CHF exacerbation ICD Codes: I50.9 - Heart failure, unspecified SNOMED: 471628195, 92114579400997 (15) Acute respiratory failure ICD Codes: J96.00 - Acute respiratory failure, unspecified whether with hypoxia or hypercapnia SNOMED: 27217559 (16) COVID-19 ICD Codes: U07.1 - COVID-19 SNOMED: 818551843 (17) Pneumonia ICD Codes: J18.9 - Pneumonia, unspecified organism SNOMED: 953517302 Qualifiers: (18) Hematoma of lower leg ICD Codes: S80.10XA - Contusion of unspecified lower leg, initial encounter SNOMED: 895962508 (19) CKD (chronic kidney disease) stage 3, GFR 30-59 ml/min ICD Codes: N18.3 - Chronic kidney disease, stage 3 (moderate) SNOMED: 927713061 (20) Pancytopenia ICD Codes: D61.818 - Other pancytopenia SNOMED: 359355379 Status: stable Assessment/Plan: resp distress, icu, trach, vent, natalie on ckd,,now stable, I/O reviewed, hematoma RLE stop eliquis , lovenox now iv protonix, rx esbl and + vre uti,g+ cocci , remains high risk, d/w psych, ID, cardiology, ,covid neg prior positive this admission now neg, , grave prognosis, fungemia treated with micafungin likely will be unable to wean for a long time, agitated when tried to wean , ,all lab and orders reviewed , no active bleeding , low Hb to transfuse 01/08 preop, done, , reculture, d/w dr curran needs trach, done,Needs gastrostomy unable to sign, done Dr Curran thinks that she might be able to wean gradually after trach placed, febrile again and infiltrates, trach scheduled 01/08, done, pancytopenia stable may be from sepsis or meds(remdesivir, chlorpromazine, micafungin, linezolid), posssible primary BM disease, wbc and platelets a bit better now, to observe ,immunofixation ordered,negative, hypernatremia and free water gt,stop D5w iv stop lasix titrate sedatives , some distress and now on 100% FIO2, cxr pending, cardizem drip for rapid afib,transition to via GTR, s/p thoracentesis culture pending icu time 35 min Benjamin Dumont MD Jan 18, 2020 09:35
[2020-01-18] MEDS: Pantoprazole Inj IVP SCH ×2 (09:36→20:31)
[2020-01-18] MEDS: Minocycline HCl 50mg cap ORAL SCH ×2 (09:36→20:31)
[2020-01-18] MEDS: Enoxaparin 60mg Inj SUBQ SCH (09:37)
[2020-01-18] MEDS: Bacitracin Oint 15gm Tube TOPIC SCH ×2 (09:58→20:32)
--- NOTE | 2020-01-18 11:00 | NUR ---
NURSE NOTES: Oral care provided.
--- NOTE | 2020-01-18 11:27 | General Progress Note ---
Subjective ROS Limited/Unobtainable: No Allergies: Coded Allergies: ERYTHROMYCIN BASE (Verified Allergy, Severe, 12/12/19) HALOPERIDOL (Verified Allergy, Unknown, 12/12/19) VANCOMYCIN (Unverified Adverse Reaction, Intermediate, Shortness of Breath, 12/12/19) Objective Last 24 Hour Vital Signs Date Time Temp Pulse Resp B/P (MAP) Pulse Ox O2 Delivery O2 Flow Rate FiO2 01/18/20 11:00 101 24 126/61 (82) 98 01/18/20 10:35 101 23 100 01/18/20 10:00 103 25 129/70 (89) 97 01/18/20 09:00 94 27 118/70 (86) 92 01/18/20 08:30 89 27 111/59 (76) 96 01/18/20 08:15 89 28 115/63 (80) 94 01/18/20 08:00 100 01/18/20 08:00 99.0 93 29 137/64 (88) 84 01/18/20 08:00 Mechanical Ventilator 01/18/20 07:45 89 29 114/65 (81) 93 01/18/20 07:30 88 30 114/66 (82) 95 01/18/20 07:15 89 29 119/71 (87) 94 01/18/20 07:01 86 31 100 01/18/20 07:00 87 30 117/62 (80) 93 01/18/20 06:45 84 29 116/68 (84) 92 01/18/20 06:35 76 31 123/54 93 01/18/20 06:30 86 29 123/54 (77) 89 01/18/20 06:15 81 29 106/58 (74) 91 01/18/20 06:05 84 113/64 01/18/20 06:05 84 24 113/64 100 01/18/20 06:04 84 113/84 01/18/20 06:00 100.3 82 29 113/64 (80) 87 01/18/20 05:45 82 27 103/61 (75) 89 01/18/20 05:00 104 27 125/75 (92) 93 01/18/20 04:00 100 01/18/20 04:00 121 01/18/20 04:00 101.0 124 32 146/87 (106) 90 01/18/20 04:00 Mechanical Ventilator 01/18/20 03:57 127 32 100 01/18/20 03:21 101.0 01/18/20 03:00 130 31 147/67 (93) 01/18/20 02:00 122 33 140/79 (99) 01/18/20 01:16 139 147/83 01/18/20 01:00 115 30 139/77 (97) 01/18/20 00:00 100.4 132 31 153/80 (104) 95 01/18/20 00:00 Mechanical Ventilator 01/18/20 00:00 100 01/17/20 23:54 127 35 100 01/17/20 23:36 135 167/85 01/17/20 23:36 135 24 167/85 97 01/17/20 23:33 157 01/17/20 23:00 138 31 140/96 (111) 82 01/17/20 22:00 151 35 154/94 (114) 95 01/17/20 21:42 153 24 174/91 100 01/17/20 21:29 Mechanical Ventilator 01/17/20 21:00 131 34 161/87 (111) 85 01/17/20 20:00 100.0 119 28 124/96 (105) 86 01/17/20 20:00 Mechanical Ventilator 01/17/20 19:56 118 34 100 01/17/20 19:16 118 01/17/20 19:00 116 32 148/76 (100) 01/17/20 18:00 128 33 134/81 (98) 100 01/17/20 17:53 130 148/82 01/17/20 17:45 100 01/17/20 17:00 130 22 148/82 (104) 100 01/17/20 16:00 40 01/17/20 16:00 100.2 112 160/83 (108) 100 01/17/20 16:00 Mechanical Ventilator 01/17/20 16:00 116 01/17/20 15:18 121 28 60 01/17/20 15:00 119 22 131/82 (98) 88 01/17/20 14:49 119 22 131/82 88 01/17/20 14:19 100 22 149/82 99 01/17/20 14:00 100 22 149/82 (104) 99 01/17/20 13:00 100.2 101 150/88 (108) 99 01/17/20 12:00 98 22 159/82 (107) 100 01/17/20 12:00 Mechanical Ventilator 01/17/20 12:00 91 01/17/20 12:00 40 01/17/20 11:28 114 28 40 Intake and Output 01/17/20 01/18/20 19:00 07:00 Intake Total 2375.25 ml 2847.9160 ml Output Total 325 ml 590 ml Balance 2050.25 ml 2257.9160 ml Free Water 200 ml 60 ml IV Total 1395.25 ml 2247.9160 ml Tube Feeding 580 ml 480 ml Other 200 ml 60 ml Output Urine Total 325 ml 590 ml # Bowel Movements 2 2 Laboratory Tests 01/18/20 04:00: White Blood Count 4.9, Red Blood Count 2.83L, Hemoglobin 8.4L, Hematocrit 26.7L, Mean Corpuscular Volume 94, Mean Corpuscular Hemoglobin 29.7, Mean Corpuscular Hemoglobin Concent 31.5L, Red Cell Distribution Width 19.9H, Platelet Count 174, Mean Platelet Volume 6.6, Neutrophils (%) (Auto) 77.3H, Lymphocytes (%) (Auto) 13.3L, Monocytes (%) (Auto) 7.4, Eosinophils (%) (Auto) 0.9, Basophils (%) (Auto) 1.2, Sodium Level 150H, Potassium Level 4.5, Chloride Level 119H, Carbon Dioxide Level 22, Anion Gap 9, Blood Urea Nitrogen 29H, Creatinine 1.5H, Estimat Glomerular Filtration Rate 34.7, Glucose Level 154H, Calcium Level 8.5, Phosphorus Level 2.6, Magnesium Level 2.8H 01/18/20 09:05: Arterial Blood pH 7.338L, Arterial Blood Partial Pressure CO2 39.3, Arterial Blood Partial Pressure O2 64.2L, Arterial Blood HCO3 20.6L, Arterial Blood Oxygen Saturation 89.6*L, Arterial Blood Base Excess -4.8L, Eugene Test Positive Height (Feet): 5 Height (Inches): 6.00 Weight (Pounds): 343 General Appearance: no apparent distress EENT: normal ENT inspection Neck: supple Cardiovascular: normal rate Respiratory/Chest: decreased breath sounds Abdomen: normal bowel sounds, non tender, soft Extremities: non-tender Assessment/Plan Problem List: (1) CKD (chronic kidney disease) stage 3, GFR 30-59 ml/min ICD Codes: N18.3 - Chronic kidney disease, stage 3 (moderate) SNOMED: 846514836 (2) COPD (chronic obstructive pulmonary disease) ICD Codes: J44.9 - Chronic obstructive pulmonary disease, unspecified SNOMED: 81942851 (3) Smoker ICD Codes: F17.200 - Nicotine dependence, unspecified, uncomplicated SNOMED: 07512096 (4) GERD (gastroesophageal reflux disease) ICD Codes: K21.9 - Gastro-esophageal reflux disease without esophagitis SNOMED: 117961555 (5) Atrial fibrillation with RVR ICD Codes: I48.91 - Unspecified atrial fibrillation SNOMED: 776890838422670 Status: stable Assessment/Plan: pepcid fu H&H monitor labs bowel regimen fu cardiology recs icu care ppi cbc in am s/p Trach and PEG GTF monitor for residuals Mervin Victoria MD Jan 18, 2020 11:27
[2020-01-18] MEDS: dilTIAZem HCl 90mg tab GT SCH ×3 (11:53→23:21)
[2020-01-18] MEDS: Multivitamins W/Minerals 15 ML UDC GT SCH (11:53)
--- NOTE | 2020-01-18 12:16 | NUR ---
CASE MANAGEMENT:REVIEW 01/18/20 SI: RESPIRATORY FAILURE 99.0 103 29 137/64 84% ON 100% FIO2 VIA VENT H/H-8.4/26.7 NA+150 BUN+29 CR+1.5 SI: IV ZOSYN Q8HR CARDIZEM GT Q6HRS IV BACTRIM Q6HRS LOPRESSOR GT Q6HRS MINOCIN GT Q12 LOVENOX SQ QD : ICU STATUS
--- NOTE | 2020-01-18 13:00 | NUR ---
NURSE NOTES: Patient still confused, attempting to grab tracheostomy. Bilateral soft wrist restraints still needed.
--- NOTE | 2020-01-18 13:02 | Infectious Diseases Prog Note ---
Assessment/Plan Assessment/Plan ASSESSMENT AND PLAN: 1. MDR acinetobacter pna - S-minocycline, I-colistin, polymyxin hx esbl e.coli uti/pyelonephritis, sepsis, leukocytosis, fevers mrsa and vre colonization, NATALIE, respiratory distress/failure Fungemia - + yeast in blood - s/p micafungin, surveillance blood cultures negative hx mrsa pna/acinetobacter pna hx VRE uti covid-19 infection right leg swelling and redness noted, ? cellulitis, ? infected hematoma, ? wound infection ? empyema, thoracentesis analysis noted, culture - gram negative - minocycline, iv bactrim, zosyn for now - f/u on thoracentesis cultures, CT surgery evaluation - s/p remdesivir, s/p dexamethasone - monitor labs and chest x-ray, monitor fevers - ? debridement right leg per surgery when patient stable - d/w surgery, no intervention at this time - d/w Naim 2. Chronic kidney failure, acute renal failure. 3. COPD. 4. Pulmonary followup. 5. Renal followup. 6. History of falls. 7. Atrial fibrillation. Cardiology followup. 8. Obesity. 9. Gait disorder. 10. Schizophrenia. 11. Homeless. 12. Allergic to erythromycin, haloperidol, and vancomycin. 13. Social history is negative. 14. Family history is noncontributory. 15. MAR is noted. 16. Case discussed with RN. 17. Continue treatment per Dr. Dumont and consultants. Subjective Constitutional: Reports: fever, other - + trach, no pressors HEENT: Reports: congestion Respiratory: Reports: shortness of breath Cardiovascular: Reports: other - no pressors Gastrointestinal/Abdominal: Denies: nausea, vomiting Genitourinary: Reports: other - + vent/trach, no pressors Neurologic: Reports: other - lethargic, weak Psychiatric: Reports: other - NA Skin: Denies: rash Hematologic: Denies: bleeding Musculoskeletal: Reports: other - NA Allergies: Coded Allergies: ERYTHROMYCIN BASE (Verified Allergy, Severe, 12/12/19) HALOPERIDOL (Verified Allergy, Unknown, 12/12/19) VANCOMYCIN (Unverified Adverse Reaction, Intermediate, Shortness of Breath, 12/12/19) Objective Last 24 Hour Vital Signs Date Time Temp Pulse Resp B/P (MAP) Pulse Ox O2 Delivery O2 Flow Rate FiO2 01/18/20 12:02 111 01/18/20 12:00 Mechanical Ventilator 01/18/20 12:00 100 01/18/20 12:00 99.2 112 24 118/72 (87) 100 01/18/20 11:53 101 126/61 01/18/20 11:53 101 126/61 01/18/20 11:00 101 24 126/61 (82) 98 01/18/20 10:35 101 23 100 01/18/20 10:00 103 25 129/70 (89) 97 01/18/20 09:00 94 27 118/70 (86) 92 01/18/20 08:30 89 27 111/59 (76) 96 01/18/20 08:15 89 28 115/63 (80) 94 01/18/20 08:00 100 01/18/20 08:00 99.0 93 29 137/64 (88) 84 01/18/20 08:00 Mechanical Ventilator 01/18/20 07:45 89 29 114/65 (81) 93 01/18/20 07:30 88 30 114/66 (82) 95 01/18/20 07:15 89 29 119/71 (87) 94 01/18/20 07:01 86 31 100 01/18/20 07:00 87 30 117/62 (80) 93 01/18/20 06:45 84 29 116/68 (84) 92 01/18/20 06:35 76 31 123/54 93 01/18/20 06:30 86 29 123/54 (77) 89 01/18/20 06:15 81 29 106/58 (74) 91 01/18/20 06:05 84 113/64 01/18/20 06:05 84 24 113/64 100 01/18/20 06:04 84 113/84 01/18/20 06:00 100.3 82 29 113/64 (80) 87 01/18/20 05:45 82 27 103/61 (75) 89 01/18/20 05:00 104 27 125/75 (92) 93 01/18/20 04:00 100 01/18/20 04:00 121 01/18/20 04:00 101.0 124 32 146/87 (106) 90 01/18/20 04:00 Mechanical Ventilator 01/18/20 03:57 127 32 100 01/18/20 03:21 101.0 01/18/20 03:00 130 31 147/67 (93) 01/18/20 02:00 122 33 140/79 (99) 01/18/20 01:16 139 147/83 01/18/20 01:00 115 30 139/77 (97) 01/18/20 00:00 100.4 132 31 153/80 (104) 95 01/18/20 00:00 Mechanical Ventilator 01/18/20 00:00 100 01/17/20 23:54 127 35 100 01/17/20 23:36 135 167/85 01/17/20 23:36 135 24 167/85 97 01/17/20 23:33 157 01/17/20 23:00 138 31 140/96 (111) 82 01/17/20 22:00 151 35 154/94 (114) 95 01/17/20 21:42 153 24 174/91 100 01/17/20 21:29 Mechanical Ventilator 01/17/20 21:00 131 34 161/87 (111) 85 01/17/20 20:00 100.0 119 28 124/96 (105) 86 01/17/20 20:00 Mechanical Ventilator 01/17/20 19:56 118 34 100 01/17/20 19:16 118 01/17/20 19:00 116 32 148/76 (100) 01/17/20 18:00 128 33 134/81 (98) 100 01/17/20 17:53 130 148/82 01/17/20 17:45 100 01/17/20 17:00 130 22 148/82 (104) 100 01/17/20 16:00 40 01/17/20 16:00 100.2 112 160/83 (108) 100 01/17/20 16:00 Mechanical Ventilator 01/17/20 16:00 116 01/17/20 15:18 121 28 60 01/17/20 15:00 119 22 131/82 (98) 88 01/17/20 14:49 119 22 131/82 88 01/17/20 14:19 100 22 149/82 99 01/17/20 14:00 100 22 149/82 (104) 99 01/17/20 13:00 100.2 101 150/88 (108) 99 Height (Feet): 5 Height (Inches): 6.00 Weight (Pounds): 343 General Appearance: no acute distress, other HEENT: normocephalic, atraumatic Respiratory/Chest: crackles/rales, rhonchi - bilaterally Cardiovascular: normal rate, regular rhythm, no gallop/murmur, no JVD Abdomen: normal bowel sounds, soft, non tender, no organomegaly, non distended Genitourinary: other - + trivedi - urine slt cloudy Extremities: no cyanosis Skin: no rash Neurologic/Psychiatric: other - lethargic, weak, on vent Lymphatic: no neck adenopathy Musculoskeletal: no effusion Chest x-ray - 11/17/19 - Procedure: XRAY Chest 1v Indication: Shortness of breath Technique: One view of the chest Comparison: 12/17/2019 Findings: The heart is enlarged. There is bilateral interstitial and airspace disease is again demonstrated, probably unchanged allowing for differences in degree of inspiration. Impression: Unchanged, over one day, findings as above. Chest x-ray - 12/21/19 - Procedure: XRAY Chest 1v Indication: Shortness of breath Technique: One view of the chest Comparison: 12/19/2019 Findings: The heart is enlarged. Bilateral extensive infiltrates are again demonstrated, stable to slightly worse allowing for differences in exposure technique. There is suggestion of increasing pleural fluid on the left. Nasogastric tube is again demonstrated. Impression: Stable to worsened bilateral extensive infiltrates, since exam of 2 days prior Increasing left pleural effusion Chest x-ray - 12/23/19 - IMPRESSION: 1. No significant interval change from the prior chest x-ray. 2. Persistent moderate left pleural effusion and mild right pleural effusion. 3. Pulmonary vascular congestion. 4. Persistent opacity in the left lung base, which may represent atelectasis versus pneumonia. Chest x-ray - 12/25/19 - Procedure: XRAY Chest 1v Procedure: XRAY Chest 1v Reason for study: Reason For Exam: SOB Comparison films: 12/24/2019. FINDINGS: The tracheal tube and NG tube remain in place. Vascular prominence and bilateral hazy alveolar densities are unchanged. Cardiomegaly and small effusions also unchanged. The bony thorax appear unremarkable. IMPRESSION: NO SIGNIFICANT CHANGE COMPARED TO PREVIOUS EXAM. 12/26/19 - Procedure: XRAY Chest 1v Procedure: XRAY Chest 1v Reason for study: Reason For Exam: SOB Comparison films: 12/25/2019. FINDINGS: Endotracheal tube and NG tube remain in place. Hazy bilateral alveolar densities are essentially unchanged given the difference in technique. Cardiomegaly and right effusion again noted. The bony thorax appear unremarkable. IMPRESSION: NO SIGNIFICANT CHANGE COMPARED TO PREVIOUS EXAM. Chest x-ray - 12/28/19 - Procedure: XRAY Chest 1v Indication: Reason For Exam: SOB Technique: Single AP view of the chest. Comparison: Chest radiograph dated 12/27/2019 Findings: Exam is again noted to be diagnostically limited due to underpenetration, patient rotation, and exclusion of part of the left hemithorax from the [id number]. Within these limitations: No significant change in appearance of visualized cardiomediastinal silhouette. Unchanged layering right pleural effusion with associated basilar airspace opacities. Likely retrocardiac consolidation, unchanged. No apical pneumothoraces. Unchanged enteric and endotracheal tubes. Unchanged left PICC. Chest x-ray - 12/30/19 - FINDINGS: Distal tip of ET tube is above devika. Distal tip of the enteric tube is in stomach. Stable left arm PICC line with distal tip likely in the left subclavian vein. Cardiac silhouette is within normal limits allowing for portable and rotated technique. Low lung volumes with elevated left hemidiaphragm. Again noted is a moderate right effusion with patchy infiltrates in the right mid to lower lung. Probable retrocardiac infiltrates. IMPRESSION: Little interval change in moderate right effusion and pneumonia/aspiration. Suspected retrocardiac infiltrate. The distal tip of the left arm PICC line is not well seen past the level of the left mid subclavian vein. [place] location is in the cavoatrial junction. Recommend advancement. <MYCVCSECTION> Chest x-ray - 01/04/20 - Procedure: XRAY Chest 1v Indication: Dyspnea Technique: One view of the chest Comparison: 01/02/2020 Findings: Bilateral interstitial and airspace congestion, right pleural effusion, cardiomegaly persists, unchanged. Tube and line positions are unchanged Impression: Unchanged, over one day, findings as above. Chest x-ray - 01/06/20 - IMPRESSION: 1. Endotracheal tube terminates in the region of the lower thoracic trachea, approximately 2.6 cm above the devika. Enteric tube is difficult to visualize distally. 2. Similar opacities predominantly in the mid and lower lungs which may represent combination of pleural effusions and atelectasis versus pneumonia versus edema. Chest x-ray - 01/07/20 - Procedure: XRAY Chest 1v Indication: Shortness of breath Technique: One view of the chest Comparison: 01/06/2020 Findings: Stable satisfactory positions of endotracheal and orogastric tubes. Mild interstitial congestion and hazy ankle opacities are again demonstrated bilaterally. There appears to be a small amount of pleural fluid bilaterally, probably unchanged. Impression: Unchanged, over one day, findings as above. Chest x-ray - 01/10/20 - Procedure: XRAY Chest 1v Indication: There is a breath Technique: One view of the chest Comparison: 01/08/2020 Findings: Interim conversion of endotracheal tube to a tracheostomy, appearing well positioned. Orogastric tube remains. Bilateral interstitial and airspace infiltrates versus edema persists, unchanged. Small bilateral pleural effusions persist, unchanged. Impression: Interim tracheostomy placement. No radiographically evident complication Stable bilateral pleural and parenchymal disease Chest x-ray - 01/13/20 - FINDINGS/IMPRESSION: Midline tracheostomy tube. Left upper extremity PICC line terminates in the left brachycephalic vein, unchanged. Mild-moderate vascular congestion, which is mildly increased when compared to January 10, 2020. Moderate left pleural effusion, which has mildly increased when compared to January 10, 2020. No pneumothorax. Cardiomegaly. Calcified aorta. Chest x-ray - 01/16/20 - Procedure: XRAY Chest 1v Indication: Shortness of breath Technique: One view of the chest Comparison: 01/15/2020 Findings: Bilateral interstitial and airspace infiltrates versus edema appears slightly increased from the prior exam. Right pleural effusion appears slightly increased. Left pleural fluid probably present, smaller than the right, stable. The heart remains enlarged. Tracheostomy, left arm PICC remain. Impression: Slightly increased pulmonary infiltrates versus edema and right pleural effusion, over one day Microbiology Date/Time Source Procedure Growth Status 01/16/20 15:25 Body Fluid AFB Specimen Processing Tissue - Final Resulted 01/16/20 15:25 Body Fluid Acid Fast Bacilli Smear - Final Resulted 01/16/20 15:25 Body Fluid Acid Fast Bacilli Culture Pending Resulted 01/16/20 15:25 Thoracic Fluid Gram Stain - Final Resulted 01/16/20 15:25 Body Fluid Culture - Preliminary Gram Negative Bacillus 1 Gram Negative Bacillus 2 Resulted Laboratory Tests Test 01/18/20 04:00 01/18/20 09:05 White Blood Count 4.9 K/UL (4.8-10.8) Red Blood Count 2.83 M/UL (4.20-5.40) L Hemoglobin 8.4 G/DL (12.0-16.0) L Hematocrit 26.7 % (37.0-47.0) L Mean Corpuscular Volume 94 FL (80-99) Mean Corpuscular Hemoglobin 29.7 PG (27.0-31.0) Mean Corpuscular Hemoglobin Concent 31.5 G/DL (32.0-36.0) L Red Cell Distribution Width 19.9 % (11.6-14.8) H Platelet Count 174 K/UL (150-450) Mean Platelet Volume 6.6 FL (6.5-10.1) Neutrophils (%) (Auto) 77.3 % (45.0-75.0) H Lymphocytes (%) (Auto) 13.3 % (20.0-45.0) L Monocytes (%) (Auto) 7.4 % (1.0-10.0) Eosinophils (%) (Auto) 0.9 % (0.0-3.0) Basophils (%) (Auto) 1.2 % (0.0-2.0) Sodium Level 150 MMOL/L (136-145) H Potassium Level 4.5 MMOL/L (3.5-5.1) Chloride Level 119 MMOL/L (98-107) H Carbon Dioxide Level 22 MMOL/L (21-32) Anion Gap 9 mmol/L (5-15) Blood Urea Nitrogen 29 mg/dL (7-18) H Creatinine 1.5 MG/DL (0.55-1.30) H Estimat Glomerular Filtration Rate 34.7 mL/min (>60) Glucose Level 154 MG/DL (74-106) H Calcium Level 8.5 MG/DL (8.5-10.1) Phosphorus Level 2.6 MG/DL (2.5-4.9) Magnesium Level 2.8 MG/DL (1.8-2.4) H Arterial Blood pH 7.338 (7.350-7.450) Arterial Blood Partial Pressure CO2 39.3 mmHg (35.0-45.0) Arterial Blood Partial Pressure O2 64.2 mmHg (75.0-100.0) L Arterial Blood HCO3 20.6 mmol/L (22.0-26.0) L Arterial Blood Oxygen Saturation 89.6 % (95-100) *L Arterial Blood Base Excess -4.8 (-2-2) L [place] Test Positive Current Medications Medications (Trade) Dose Ordered Sig/Shiraz Route PRN Reason Start Time Stop Time Status Last Admin Dose Admin Acetaminophen (Tylenol) 650 mg Q4H PRN GT Mild Pain (Pain Scale 1-3) 01/12/20 10:00 02/11/20 09:59 01/15/20 05:41 Acetaminophen (Tylenol) 650 mg Q4H PRN GT Temp >100.5 01/12/20 10:00 02/11/20 09:59 01/18/20 02:51 Acetazolamide (Diamox) 500 mg EVERY 12 HOURS GT 01/17/20 21:00 02/01/20 17:59 01/18/20 09:36 Albuterol Sulfate (Proventil MDI) 2 puff Q4H PRN INH Shortness of Breath 12/24/19 10:30 03/23/20 10:29 01/12/20 09:44 Ascorbic Acid (Vitamin C) 500 mg BEDTIME GT 01/17/20 21:00 02/16/20 20:59 01/17/20 21:41 Bacitracin (Bacitracin 15gm tube) 1 applic EVERY 12 HOURS TOPIC 01/16/20 11:00 04/15/20 10:59 01/18/20 09:58 Chlorhexidine Gluconate (Jessie-Hex 2%) 1 applic DAILY@1999 TOPIC 12/24/19 20:00 03/23/20 19:59 01/17/20 21:40 Clotrimazole (Lotrimin) 1 applic EVERY 12 HOURS TOPIC 01/05/20 09:00 03/12/20 08:59 01/18/20 09:58 Diltiazem HCl 125 ml @ 0 mls/hr Q24H IVPB 01/17/20 21:00 01/18/20 20:59 01/18/20 06:02 Diltiazem HCl (Cardizem Tab) 90 mg EVERY 6 HOURS GT 01/18/20 12:00 02/17/20 00:44 01/18/20 11:53 Docusate Sodium (Colace) 100 mg EVERY 12 HOURS GT 01/17/20 09:00 01/24/20 08:59 Enoxaparin Sodium (Lovenox) 60 mg DAILY SUBQ 01/13/20 12:00 04/12/20 11:59 01/18/20 09:37 Lorazepam (Ativan) 1 mg EVERY 8 HOURS GT 01/14/20 18:00 01/21/20 17:59 01/18/20 06:05 Magnesium Hydroxide (Mom) 30 ml HSPRN PRN NG Constipation 12/22/19 15:15 01/21/20 15:14 01/02/20 22:20 Metoclopramide HCl (Reglan) 5 mg Q6H IVP 01/05/20 09:15 02/04/20 09:14 01/18/20 09:36 Metoprolol Tartrate (Lopressor) 50 mg Q6HR GT 01/17/20 12:00 04/12/20 17:59 01/18/20 11:53 Minocycline HCl (Minocin) 100 mg Q12HR ORAL 01/16/20 21:00 01/23/20 20:59 01/18/20 09:36 Morphine Sulfate (Morphine Sulfate) 2 mg Q4H PRN IVP Moderate Pain (Pain Scale 4-6) 01/14/20 12:00 01/21/20 11:59 01/14/20 17:54 Morphine Sulfate (Morphine Sulfate) 4 mg Q4H PRN IVP Severe Pain (Pain Scale 7-10) 01/14/20 12:00 01/21/20 11:59 01/16/20 17:48 Multivitamins (Multivitamins W/ Minerals 15ml Liquid) 15 ml Q24H GT 01/18/20 11:00 02/17/20 10:59 01/18/20 11:53 Pantoprazole (Protonix) 40 mg EVERY 12 HOURS IVP 01/01/20 21:00 01/31/20 20:59 01/18/20 09:36 Piperacillin Sod/ Tazobactam Sod 3.375 gm/Dextrose 100 ml @ 25 mls/hr EVERY 8 HOURS IVPB 01/17/20 22:00 01/22/20 21:59 01/18/20 06:05 Polyethylene Glycol (Miralax) 17 gm BEDTIME GT 01/17/20 21:00 01/28/20 20:59 Quetiapine Fumarate (SEROqueL) 150 mg EVERY 8 HOURS GT 01/17/20 14:00 02/25/20 21:59 01/18/20 06:05 Trimethoprim/ Sulfamethoxazole 15 ml/Dextrose 565 ml @ 376.667 mls/hr [id number] BACTRIM IV 01/17/20 20:00 01/24/20 19:59 01/18/20 07:41 Aleisha Coronel MD Jan 18, 2020 13:02
--- NOTE | 2020-01-18 14:42 | NUR ---
NURSE NOTES: Dr. Keen in the unit. Informed regarding today's ABG result. With orders to have CT chest no contrast when stable, and to increase mechanical ventilator PEEP setting from 5 to 8.
--- NOTE | 2020-01-18 15:07 | Diagnostic Imaging Report ---
Indication: Dyspnea Technique: One view of the chest Comparison: 01/16/2020 Findings: There is complete or near complete opacification of left hemithorax. There is increasing pleural fluid on the right. Interstitial and airspace disease on the right is unchanged. Tracheostomy is again demonstrated Impression: Complete or near complete opacification left hemithorax. This may indicate rapidly accumulating pleural effusion, versus atelectatic left lung. Other findings as noted Findings discussed by phone with Dr. Keen at the time of interpretation
--- NOTE | 2020-01-18 15:30 | NUR ---
NURSE NOTES: Bedbath provided by 2 staff.
--- NOTE | 2020-01-18 17:00 | NUR ---
NURSE NOTES: Patient tolerating current GT feeding. No residual noted.
[2020-01-18] MEDS ORDERED: Tubing IV Secondary IV ONE (18:07)
--- NOTE | 2020-01-18 19:14 | NUR ---
NURSE HAND-OFF REPORT: Latest Vital Signs: Temperature 99.8 , Pulse 108 , B/P 130 /78 , Respiratory Rate 26 , O2 SAT 90 , Mechanical Ventilator, O2 Flow Rate . EKG Rhythm: Atrial Fibrillation Rhythm change?: N Latest Abreu Fall Score: 75 Fall Risk: High Risk Safety Measures: Call light Within Reach, Bed Alarm Zone 1, Side Rails Side Rails x3, Bed position Low and Locked. Fall Precautions: Yellow Socks Yellow Gown Door Sign Patient Fall Education Airborne, droplet, contact isolation endorsed. Report given to Aspen Hernandez RN.
--- NOTE | 2020-01-18 19:15 | NUR ---
NURSE NOTES: Report received from NOEL Walton. Observed pt lying in the bed, sleeping, arousable by shaking, noted pt combative and confused, no distress on bilateral wrists. Afib noted on [place], HR of 99 noted. Trach to vent, AC 18, TV 600, FIO2 100%, PEEP 8. GT intact, running Glucerna 1.5 at 40cc/hr. F/C intact, draining brown-color urine. L UA PICC noted, intact, TKO. Bed in the lowest position. Side rails up x3. Will continue to monitor.
[2020-01-18] MEDS: Miralax 17gm pkt GT SCH (20:30)
[2020-01-18] MEDS: Dyna-Hex 2% Top Sol 2oz TOPIC SCH (20:30)
[2020-01-18] MEDS: Ascorbic Acid 500mg tab GT SCH (20:31)
--- NOTE | 2020-01-18 20:37 | Surgery Progress Note ---
Surgery Progress Note Subjective Procedure Performed tracheostomy Additional Comments discussed with pulm needs chest tube will arrange Objective Last 24 Hour Vital Signs Date Time Temp Pulse Resp B/P (MAP) Pulse Ox O2 Delivery O2 Flow Rate FiO2 01/18/20 19:00 108 26 130/78 (95) 90 01/18/20 18:21 126 136/76 01/18/20 18:21 126 136/76 01/18/20 18:00 126 25 136/76 (96) 01/18/20 17:00 107 25 130/67 (88) 01/18/20 16:29 115 01/18/20 16:00 Mechanical Ventilator 01/18/20 16:00 99.8 109 27 158/145 (149) 01/18/20 15:41 85 26 171/65 90 01/18/20 15:20 100 01/18/20 15:11 82 24 111/57 98 01/18/20 15:00 89 26 111/57 (75) 90 01/18/20 14:42 94 27 100 01/18/20 14:00 83 25 107/51 (69) 92 01/18/20 13:00 75 25 97/37 (57) 88 01/18/20 12:02 111 01/18/20 12:00 Mechanical Ventilator 01/18/20 12:00 100 01/18/20 12:00 99.2 112 24 118/72 (87) 100 01/18/20 11:53 101 126/61 01/18/20 11:53 101 126/61 01/18/20 11:00 101 24 126/61 (82) 98 01/18/20 10:35 101 23 100 01/18/20 10:00 103 25 129/70 (89) 97 01/18/20 09:00 94 27 118/70 (86) 92 01/18/20 08:30 89 27 111/59 (76) 96 01/18/20 08:15 89 28 115/63 (80) 94 01/18/20 08:00 100 01/18/20 08:00 99.0 93 29 137/64 (88) 84 01/18/20 08:00 Mechanical Ventilator 01/18/20 07:45 89 29 114/65 (81) 93 01/18/20 07:30 88 30 114/66 (82) 95 01/18/20 07:15 89 29 119/71 (87) 94 01/18/20 07:01 86 31 100 01/18/20 07:00 87 30 117/62 (80) 93 01/18/20 06:45 84 29 116/68 (84) 92 01/18/20 06:35 76 31 123/54 93 01/18/20 06:30 86 29 123/54 (77) 89 01/18/20 06:15 81 29 106/58 (74) 91 01/18/20 06:05 84 113/64 01/18/20 06:05 84 24 113/64 100 01/18/20 06:04 84 113/84 01/18/20 06:00 100.3 82 29 113/64 (80) 87 01/18/20 05:45 82 27 103/61 (75) 89 01/18/20 05:00 104 27 125/75 (92) 93 01/18/20 04:00 100 01/18/20 04:00 121 01/18/20 04:00 101.0 124 32 146/87 (106) 90 01/18/20 04:00 Mechanical Ventilator 01/18/20 03:57 127 32 100 01/18/20 03:21 101.0 01/18/20 03:00 130 31 147/67 (93) 01/18/20 02:00 122 33 140/79 (99) 01/18/20 01:16 139 147/83 01/18/20 01:00 115 30 139/77 (97) 01/18/20 00:00 100.4 132 31 153/80 (104) 95 01/18/20 00:00 Mechanical Ventilator 01/18/20 00:00 100 01/17/20 23:54 127 35 100 01/17/20 23:36 135 167/85 01/17/20 23:36 135 24 167/85 97 01/17/20 23:33 157 01/17/20 23:00 138 31 140/96 (111) 82 01/17/20 22:00 151 35 154/94 (114) 95 01/17/20 21:42 153 24 174/91 100 01/17/20 21:29 Mechanical Ventilator 01/17/20 21:00 131 34 161/87 (111) 85 I&O Intake and Output 01/17/20 01/18/20 19:00 07:00 Intake Total 2375.25 ml 2847.9160 ml Output Total 325 ml 590 ml Balance 2050.25 ml 2257.9160 ml Free Water 200 ml 60 ml IV Total 1395.25 ml 2247.9160 ml Tube Feeding 580 ml 480 ml Other 200 ml 60 ml Output Urine Total 325 ml 590 ml # Bowel Movements 2 2 Dressing: other Wound: other Cardiovascular: RSR Respiratory: decreased breath sounds Abdomen: soft, non-tender, present bowel sounds Extremities: no tenderness, no cyanosis Laboratory Tests Test 01/18/20 04:00 01/18/20 09:05 White Blood Count 4.9 K/UL (4.8-10.8) Red Blood Count 2.83 M/UL (4.20-5.40) L Hemoglobin 8.4 G/DL (12.0-16.0) L Hematocrit 26.7 % (37.0-47.0) L Mean Corpuscular Volume 94 FL (80-99) Mean Corpuscular Hemoglobin 29.7 PG (27.0-31.0) Mean Corpuscular Hemoglobin Concent 31.5 G/DL (32.0-36.0) L Red Cell Distribution Width 19.9 % (11.6-14.8) H Platelet Count 174 K/UL (150-450) Mean Platelet Volume 6.6 FL (6.5-10.1) Neutrophils (%) (Auto) 77.3 % (45.0-75.0) H Lymphocytes (%) (Auto) 13.3 % (20.0-45.0) L Monocytes (%) (Auto) 7.4 % (1.0-10.0) Eosinophils (%) (Auto) 0.9 % (0.0-3.0) Basophils (%) (Auto) 1.2 % (0.0-2.0) Sodium Level 150 MMOL/L (136-145) H Potassium Level 4.5 MMOL/L (3.5-5.1) Chloride Level 119 MMOL/L (98-107) H Carbon Dioxide Level 22 MMOL/L (21-32) Anion Gap 9 mmol/L (5-15) Blood Urea Nitrogen 29 mg/dL (7-18) H Creatinine 1.5 MG/DL (0.55-1.30) H Estimat Glomerular Filtration Rate 34.7 mL/min (>60) Glucose Level 154 MG/DL (74-106) H Calcium Level 8.5 MG/DL (8.5-10.1) Phosphorus Level 2.6 MG/DL (2.5-4.9) Magnesium Level 2.8 MG/DL (1.8-2.4) H Arterial Blood pH 7.338 (7.350-7.450) Arterial Blood Partial Pressure CO2 39.3 mmHg (35.0-45.0) Arterial Blood Partial Pressure O2 64.2 mmHg (75.0-100.0) L Arterial Blood HCO3 20.6 mmol/L (22.0-26.0) L Arterial Blood Oxygen Saturation 89.6 % (95-100) *L Arterial Blood Base Excess -4.8 (-2-2) L Uegene Test Positive Plan Problems: (1) Urinary tract infection (2) CHF exacerbation (3) History of schizophrenia (4) Atrial fibrillation with RVR (5) Schizophrenia (6) GERD (gastroesophageal reflux disease) (7) Smoker (8) Atrial fibrillation with rapid ventricular response (9) Lymphadema (10) COPD (chronic obstructive pulmonary disease) (11) CKD (chronic kidney disease) stage 3, GFR 30-59 ml/min (12) NATALIE (acute kidney injury) (13) Dehydration (14) Dysphagia (15) UTI (urinary tract infection) (16) UGI bleed (17) ESBL (extended spectrum beta-lactamase) producing bacteria infection (18) Constipation (19) Lactic acidosis (20) Tinea cruris (21) Onychomycosis (22) Emesis (23) Essential hypertension (24) Anemia (25) Cough (26) Depression (27) Depression (28) Edema (29) Rash (30) Opiate dependence (31) Opiate dependence (32) Opiate dependence (33) Opiate dependence (34) Pyelonephritis (35) Sepsis (36) UTI (urinary tract infection) (37) Nausea and vomiting (38) Abdominal pain Assessment & Plan: [age]-year-old female obese white abdominal pain deep tissue injury identified limited mobility on HD. KUB noted tube in place continue meds feeds Does not seem obstructed We will monitor lines noted. plan change resume tube feeds labs okay FINDINGS: Lower thorax: Obscuration of the left costophrenic angle suggestive of pleural effusion. Intraperitoneal space: No free air. Gastrointestinal tract: Unremarkable. No dilation. Bones/joints: Unremarkable. Tubes, lines and devices: The nasogastric tube has the tip at the mid inferior aspect of the gastric body. Other findings: Nonspecific gas pattern. Single frontal view of the abdomen demonstrates tip of the enteric tube and distal side-port projecting over the stomach. Gas is identified within the nondistended large bowel. There is a paucity of small bowel gas seen. Partially visualized left pleural effusion. No other significant interval change. (39) Chest pain (40) Chest pain (41) Nausea (42) Obesity (43) Chronic ulcer of leg (44) Chronic ulcer of leg (45) Chronic ulcer of leg (46) ACS (acute coronary syndrome) (47) Acute chest pain (48) Encounter for dressing change or suture removal (49) Left leg cellulitis (50) Acute encephalopathy (51) Encounter for wound re-check (52) Intractable nausea and vomiting (53) Infection due to ESBL-producing Escherichia coli (54) Chronic venous stasis (55) Change of dressing (56) Change of dressing (57) Change of dressing (58) Change of dressing (59) Change of dressing (60) Change of dressing (61) Change of dressing (62) Change of dressing (63) ESBL urine (64) Lymphadema (65) Lymphedema (66) Lymphedema (67) Lymphedema (68) Lymphedema (69) Lymphedema (70) Lymphedema (71) Lymphedema (72) Lymphedema (73) Open wound of foot (74) Open wound of foot (75) cellulitis (76) chronic lymphedema (77) chronic lymphedema (78) chronic lymphedema (79) hypertension uncontrolled (80) hypertension uncontrolled (81) Intertrigo (82) Sciatica (83) Cellulitis (84) Schizophrenia (85) Chronic bronchitis (86) HTN (hypertension) (87) Venous stasis ulcers (88) Medication refill (89) Chest pain, atypical (90) BMI 45.0-49.9, adult (91) Lymphedema of both lower extremities (92) hypertension uncontrolled (93) hypertension uncontrolled (94) hypertension uncontrolled (95) tenia corpus (96) Deep tissue injury Assessment & Plan: Morbidly obese pt whom presented on admission with Pressure injuries, Edemae bilat lower extremities eschar to dorsal aspects of metatarsals. Pt is very demanding of staff and can be resistive to repositioning. DTPI noted to L Sacrum(L)5.5cm x (W)2.5cm. Base of Pressure Injury is Maroon and indurated with surrounding non-blanchable erythema DTPI R Sacrum(L)5.5cm x (W)2.3cm. Base of Pressure Injury is maroon with purpuric center that is fluctuant. Pt complained of tenderness when minimally palpated. Bilat lower extremities are edematous . Dry eschar noted to nail matrix and tip of L 1st metatarsal, Dorsal L 2nd metatarsal, R 2nd and R 4th metatarsals. Both heels are boggy with non-Blanchable erythema. blisters forming on Right lower extremity anterior tibia. not infected cellulitis / edema on b/l le stable cont abx Tx.Plan: Apply Moisture Barrier Paste to Sacrum R and L gluteal cheeks. Cover with Optifoam drsgs. Change every 3 days and prn. Apply Betadine to dry eschar metatarsals both feet Daily. Apply Cavilon Skin Barrier to both heels. Cover each heel with Optifoam drsgs. Change every 7days and prn. Reposition at least every 2hours or as tolerated. Off-load heels with pillow. right leg hematoma stable critically ill and edema on right leg has compromised dermis over the hematoma. will likely need debridement once improved (97) COVID-19 Assessment & Plan: ++ on vent weaning abx as per ID (98) Respiratory failure Assessment & Plan: not able to wean safely will plan for trach case discussed with medical team, pulm, icu. recommended to trach given medical condition. medically indicated and recommended. s/p trach 01/08 s/p trach more comfortable less agitated on vent weaning here is complete or near complete opacification of left hemithorax. There is increasing pleural fluid on the right. Interstitial and airspace disease on the right is unchanged. Tracheostomy is again demonstrated Impression: Complete or near complete opacification left hemithorax. This may indicate rapidly accumulating pleural effusion, versus atelectatic left lung. chest tube (99) Pneumonia Juan Manuel Buckner Jan 18, 2020 20:37
[2020-01-18] MEDS: Morphine Sulfate 4mg/ml Inj (IV USE ONLY) IVP PRN (20:59)
--- NOTE | 2020-01-18 21:18 | Operative Note - PDOC ---
Operative Note Operative Note Date of Operation/Procedure: Jan 18, 2020 Pre-op Diagnosis: respiratory insufficiency covid + increased oxygen requirement complete left opacification Procedure: left tube thoracotomy Post-op Diagnosis: same as pre-op Surgeon: mary samaniego Anesthesia: local Specimen: none Complications: none Condition: stable Fluids: none Estimated Blood Loss: minimal Drains: other Implant(s) used?: No Indications for Procedure 69F septic covid respiratory insufficiency in ICU s/p trach. recent right large pleural effusion s/p thoracentesis US guided with cloudy yellow fluid gram stain + now with acute complete opacification of left lung with acutely increasing oxygen requirement. possible rapid fluid accumulation and potential for large left effusion infection and chest tube recommended. discussed with ICU and medical teams. given acute desaturation and decline tube placement indicated and recommended as potentially reversible condition life saving. medically necessary as decided by care team. Description of Procedure patient made comfortable at bedside. sedation given. patient very obese. anatomy identified. positioning made for arms and body habitus. left chest wall prepped and draped in standard surgical fashion. mid axillary inframammary identified and local infiltrated. small skin incision made and dissection to rib margins. entered pleural space and manual palpation. gush of air noted. 38f chest tube placed without complication. tube sutured in place and dressings applied. cxr ordered. Mary Buckner Jan 18, 2020 21:18
--- NOTE | 2020-01-18 21:30 | NUR ---
NURSE NOTES: at the bedside and inserted chest tube, covered with dressing and secured, chamber at below chest level, connected to suction and intact, suction chamber at 20cm, bubbling noted. X-ray done and confirmed by MD at the bedside. Will continue to monitor.
--- NOTE | 2020-01-18 21:53 | Diagnostic Imaging Report ---
INDICATION: status post tracheostomy. COMPARISON: Same day chest radiograph at 7:51 Findings/impression: Single portable frontal view demonstrates a tracheostomy. There are low lung volumes. Again identified is complete opacification of the left thorax. Interval worsening airspace opacities throughout the right lung. Small to moderate right pleural effusion. Stable cardiomegaly. No clinically significant pneumothorax. Unchanged positioning of the left upper extremity PICC line.
--- NOTE | 2020-01-18 23:00 | NUR ---
NURSE NOTES: No acute distress noted at this time. Chest tube intact, dressing reinforced. Afib with HR of 110 noted. Reposition done. Oral care given. Will continue to monitor.
--- NOTE | 2020-01-18 23:25 | Cardiology Progress Note ---
Subjective DATE OF SERVICE: Jan 18, 2020 Doing poorly - remains in ICU in critical condition with guarded prognosis. Now s/p left thoracotomy/chest tube for opacified left lung. Remains on vent support - s/p trach. BP range remaining low normal range. Remains COVID19 positive. Monitor: AFIb with better rate control on cardizem gtts. Venous Duplex: negative for DVT Renal fxn and free water deficit worsening Objective Last 24 Hour Vital Signs Date Time Temp Pulse Resp B/P (MAP) Pulse Ox O2 Delivery O2 Flow Rate FiO2 01/18/20 23:21 120 135/70 01/18/20 23:21 120 135/70 01/18/20 22:51 93 27 110/70 90 01/18/20 22:00 93 27 110/70 (83) 01/18/20 21:00 98 28 110/68 (82) 01/18/20 20:00 100 01/18/20 20:00 99.0 96 27 123/81 (95) 01/18/20 20:00 Mechanical Ventilator 01/18/20 20:00 94 01/18/20 19:54 101 26 100 01/18/20 19:00 108 26 130/78 (95) 90 01/18/20 18:21 126 136/76 01/18/20 18:21 126 136/76 01/18/20 18:00 126 25 136/76 (96) 01/18/20 17:00 107 25 130/67 (88) 01/18/20 16:29 115 01/18/20 16:00 Mechanical Ventilator 01/18/20 16:00 99.8 109 27 158/145 (149) 01/18/20 15:41 85 26 171/65 90 01/18/20 15:20 100 01/18/20 15:11 82 24 111/57 98 01/18/20 15:00 89 26 111/57 (75) 90 01/18/20 14:42 94 27 100 01/18/20 14:00 83 25 107/51 (69) 92 01/18/20 13:00 75 25 97/37 (57) 88 01/18/20 12:02 111 01/18/20 12:00 Mechanical Ventilator 01/18/20 12:00 100 01/18/20 12:00 99.2 112 24 118/72 (87) 100 01/18/20 11:53 101 126/61 01/18/20 11:53 101 126/61 01/18/20 11:00 101 24 126/61 (82) 98 01/18/20 10:35 101 23 100 01/18/20 10:00 103 25 129/70 (89) 97 01/18/20 09:00 94 27 118/70 (86) 92 01/18/20 08:30 89 27 111/59 (76) 96 01/18/20 08:15 89 28 115/63 (80) 94 01/18/20 08:00 100 01/18/20 08:00 99.0 93 29 137/64 (88) 84 01/18/20 08:00 Mechanical Ventilator 01/18/20 07:45 89 29 114/65 (81) 93 01/18/20 07:30 88 30 114/66 (82) 95 01/18/20 07:15 89 29 119/71 (87) 94 01/18/20 07:01 86 31 100 01/18/20 07:00 87 30 117/62 (80) 93 01/18/20 06:45 84 29 116/68 (84) 92 01/18/20 06:35 76 31 123/54 93 01/18/20 06:30 86 29 123/54 (77) 89 01/18/20 06:15 81 29 106/58 (74) 91 01/18/20 06:05 84 113/64 01/18/20 06:05 84 24 113/64 100 01/18/20 06:04 84 113/84 01/18/20 06:00 100.3 82 29 113/64 (80) 87 01/18/20 05:45 82 27 103/61 (75) 89 01/18/20 05:00 104 27 125/75 (92) 93 01/18/20 04:00 100 01/18/20 04:00 121 01/18/20 04:00 101.0 124 32 146/87 (106) 90 01/18/20 04:00 Mechanical Ventilator 01/18/20 03:57 127 32 100 01/18/20 03:21 101.0 01/18/20 03:00 130 31 147/67 (93) 01/18/20 02:00 122 33 140/79 (99) 01/18/20 01:16 139 147/83 01/18/20 01:00 115 30 139/77 (97) 01/18/20 00:00 100.4 132 31 153/80 (104) 95 01/18/20 00:00 Mechanical Ventilator 01/18/20 00:00 100 01/17/20 23:54 127 35 100 01/17/20 23:36 135 167/85 01/17/20 23:36 135 24 167/85 97 01/17/20 23:33 157 ROS: unchanged from 12/12/19 HEENT: Orally intubated, Mechanically Ventilated, Thin secretions ET Tube, other - NGtube RHYTHM: NSR, ST LUNGS: diminished breath sounds, right-sided rhonchi CARDIAC: normal S1 and S2, irregularly irregular ABDOMEN: other - obese EXTREMITIES: moderate edema - mostly non pitting, other - hematoma right leg Laboratory Tests Test 01/18/20 04:00 01/18/20 09:05 White Blood Count 4.9 K/UL (4.8-10.8) Red Blood Count 2.83 M/UL (4.20-5.40) L Hemoglobin 8.4 G/DL (12.0-16.0) L Hematocrit 26.7 % (37.0-47.0) L Mean Corpuscular Volume 94 FL (80-99) Mean Corpuscular Hemoglobin 29.7 PG (27.0-31.0) Mean Corpuscular Hemoglobin Concent 31.5 G/DL (32.0-36.0) L Red Cell Distribution Width 19.9 % (11.6-14.8) H Platelet Count 174 K/UL (150-450) Mean Platelet Volume 6.6 FL (6.5-10.1) Neutrophils (%) (Auto) 77.3 % (45.0-75.0) H Lymphocytes (%) (Auto) 13.3 % (20.0-45.0) L Monocytes (%) (Auto) 7.4 % (1.0-10.0) Eosinophils (%) (Auto) 0.9 % (0.0-3.0) Basophils (%) (Auto) 1.2 % (0.0-2.0) Sodium Level 150 MMOL/L (136-145) H Potassium Level 4.5 MMOL/L (3.5-5.1) Chloride Level 119 MMOL/L (98-107) H Carbon Dioxide Level 22 MMOL/L (21-32) Anion Gap 9 mmol/L (5-15) Blood Urea Nitrogen 29 mg/dL (7-18) H Creatinine 1.5 MG/DL (0.55-1.30) H Estimat Glomerular Filtration Rate 34.7 mL/min (>60) Glucose Level 154 MG/DL (74-106) H Calcium Level 8.5 MG/DL (8.5-10.1) Phosphorus Level 2.6 MG/DL (2.5-4.9) Magnesium Level 2.8 MG/DL (1.8-2.4) H Arterial Blood pH 7.338 (7.350-7.450) Arterial Blood Partial Pressure CO2 39.3 mmHg (35.0-45.0) Arterial Blood Partial Pressure O2 64.2 mmHg (75.0-100.0) L Arterial Blood HCO3 20.6 mmol/L (22.0-26.0) L Arterial Blood Oxygen Saturation 89.6 % (95-100) *L Arterial Blood Base Excess -4.8 (-2-2) L Eugene Test Positive Microbiology Date/Time Source Procedure Growth Status 01/16/20 15:25 Body Fluid AFB Specimen Processing Tissue - Final Resulted 01/16/20 15:25 Body Fluid Acid Fast Bacilli Smear - Final Resulted 01/16/20 15:25 Body Fluid Acid Fast Bacilli Culture Pending Resulted 01/16/20 15:25 Thoracic Fluid Gram Stain - Final Resulted 01/16/20 15:25 Body Fluid Culture - Preliminary Gram Negative Bacillus 1 Gram Negative Bacillus 2 Resulted Assessment/Plan Assessment/Plan CRITICAL AND GUARDED Left lung opacification - s/p chest tube placement 01/18/20. Acute respiratory failure - s/p trach Acute on chronic respiratory acidosis AFiB with labile heart rates, and now persistent RVR. CHF, ac/chr diastolic BLE edema Sepsis with shock obesity COPD with bronchospasm Acute renal failure - worsening Pleural effusion GI bleeding Anemia - multifactorial, now worse Covid 19 PNA Hypokalemia Dehydration/hypernatremia worsened Hypertension/HHD with labile BP - now stable range. Vent support Chest tube management Advance beta yves and oral diltiazem, then taper off cardizem gtts. PRBC transfusion for hb below 7gm/dl Monitor acid/base parameters. 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 Agree with DNR Jerome Meek MD Jan 18, 2020 23:25
[2020-01-19] VITALS (23 sets, daily range): BP systolic 95–149; BP diastolic 38–99
--- NOTE | 2020-01-19 01:03 | NUR ---
NURSE HAND-OFF REPORT: Important Events on Shift: Chest tube inserted by Patient Status: poor, Afib, FIO2 100% on vent Diet: Glucenra 1.5 Pending Orders: n Pending Results/Labs:n Pending MD notification:n Latest Vital Signs: Temperature 99.0 , Pulse 106 , B/P 99 /55 , Respiratory Rate 27 , O2 SAT 90 , Mechanical Ventilator, O2 Flow Rate . Vital Sign Comment: n EKG Rhythm: Atrial Fibrillation Rhythm change?: N MD Notified?: N -MD Gaviota UNDERWOOD Response: Latest Abreu Fall Score: 75 Fall Risk: High Risk Safety Measures: Call light Within Reach, Bed Alarm Zone 1, Side Rails Side Rails x3, Bed position Low and Locked. Fall Precautions: Yellow Socks Yellow Gown Door Sign Patient Fall Education Report given to NOEL Palumbo.
--- NOTE | 2020-01-19 02:00 | NUR ---
Nurse Notes: Patient withdraws to pain. Patient with shiley 8 on ventilator AC 18 TV 600 FiO2 100% PEEP 8. BP113/66 HR103 Afib on monitor. Left Upper Arm PICC line TKO. Left side chest tube set to suction. Gtube running glucerna 1.5 @40ml/hr. Sacral and bilateral heel DTPI and right leg open wound dressing clean and intact. Patient repositioned and oral care provided.
[2020-01-19] MEDS: D5W IV SCH ×4 (02:24→20:17)
[2020-01-19] MEDS: Metoclopramide 10mg/2ml Inj IVP SCH ×4 (02:24→21:03)
[2020-01-19] MEDS: BACTRIM IV SCH ×4 (02:24→20:17)
--- NOTE | 2020-01-19 04:00 | NUR ---
Nurse Notes: Patient withdraws to pain. Patient with shiley 8 on ventilator AC 18 TV 600 FiO2 100% PEEP 8. BP102/38 HR112 Afib on monitor and afebrile. Gtube running glucerna 1.5 @40ml/hr. Left Upper Arm PICC line TKO. Lockett draining doretha urine. Patient repositioned and oral care provided.
[2020-01-19 04:46] LABS: CALCIUM 7.9 MG/DL (8.5-10.1); CREATININE 1.5 MG/DL (0.55-1.30); POTASSIUM 4.1 MMOL/L (3.5-5.1)
[2020-01-19 04:56] LABS: HEMATOCRIT 23.1 % (37.0-47.0); HEMOGLOBIN 7.2 G/DL (12.0-16.0); MEAN CORPUSCULAR VOLUME 93 FL (80-99); PLATELET COUNT 145 K/UL (150-450); RED BLOOD COUNT 2.48 M/UL (4.20-5.40); RED CELL DISTRIBUTION WIDTH 18.9 % (11.6-14.8); WHITE BLOOD COUNT 4.7 K/UL (4.8-10.8)
[2020-01-19] MEDS: dilTIAZem HCl 90mg tab GT SCH ×3 (05:24→17:50)
[2020-01-19] MEDS: Metoprolol Tartrate 50mg tab GT SCH ×3 (05:25→17:50)
[2020-01-19] MEDS: LORazepam 1mg tab GT SCH ×3 (05:25→22:06)
--- NOTE | 2020-01-19 06:00 | NUR ---
Nurse Notes: Patient withdraws to shaking and light pain. Patient with Shiley 8 on ventilator AC 18 TV 600 FiO2 100% PEEP 8. BP121/66 HR106 Afib on monitor and afebrile. Gtube running Glucerna 1.5 @40ml/hr. Left Upper Arm PICC line TKO. Lockett draining doretha urine. Sacral and bilateral heel DTPI and right leg open wound dressing clean and intact. Patient repositioned and oral care provided.
--- NOTE | 2020-01-19 07:27 | NUR ---
NURSE HAND-OFF REPORT: Latest Vital Signs: Temperature 98.6 , Pulse 106 , B/P 121 /66 , Respiratory Rate 25 , O2 SAT 99 , Mechanical Ventilator, O2 Flow Rate . Vital Sign Comment: WNL EKG Rhythm: Atrial Fibrillation Rhythm change?: N Notified?: N -MD Gaviota UNDERWOOD Response: Latest Abreu Fall Score: 75 Fall Risk: High Risk Safety Measures: Call light Within Reach, Bed Alarm Zone 1, Side Rails Side Rails x3, Bed position Low and Locked. Fall Precautions: Yellow Socks Yellow Gown Door Sign Patient Fall Education Report given to NOEL Baumann.
--- NOTE | 2020-01-19 07:30 | NUR ---
NURSE NOTES: Patient received from Deepali COHEN. Patient stable at this time with no s/sx of pain or distress. AOx0 resting at this time. RR even and unlabored on trach shiley 8. Ventilator settings as ordered AC 18 600mL 40% P5. Cardiac sounds benign. Breath sounds diminished, rhoncus with RT > LT. Bowels sounds present. Feeding infusing. Zero residual. Gtube BL radial and Pedal pulses weak. Generalized edema present with hands +2 and ankles +3. Lockett in place draining well to gravity. LT UA PICC line dressing dry and intact. Patent with fluids TKO to both ports. Wound dressing to RT leg intact. Restraints on with good ROM, sensation and circulation. Still attempting to grab and pull on devices and staff when moved. Dependent edema present and previously noted unrelated to restraints. Side rails upx2, bed low and locked.
[2020-01-19] MEDS: Enoxaparin 60mg Inj SUBQ SCH (09:00)
[2020-01-19] MEDS: Pantoprazole Inj IVP SCH ×2 (09:27→21:03)
[2020-01-19] MEDS: Docusate 100mg/10ml Liq GT SCH ×2 (09:27→21:03)
[2020-01-19] MEDS: Bacitracin Oint 15gm Tube TOPIC SCH ×2 (09:28→21:24)
[2020-01-19] MEDS: Minocycline HCl 50mg cap ORAL SCH (09:28)
--- NOTE | 2020-01-19 09:45 | Pulmonolgy Critical Care Note ---
Luz Bowen HEALTH CONSULTANT 01/19/20 0945: Critical Care - Asmt/Plan Assessment/Plan: ASSESSMENT acute hypoxemic hypercapnic resp failure, requiring intubation 12/22 s/p trach 01/08 COVID 19 PNA sepsis fungemia empyema s/p L thoracotomy 01/17 UTI with E coli ESBL UTI VRE possible aspiration PNA - s/p treatment Moderate R pleural effusion COPD Atrial fibrillation with RVR CHF Acute renal failure on CKD Severe anemia dysphagia, s/p PEG 01/08 Thrombocytopenia Status post ground fall Tobacco dependency Morbid obesity probable GARY R knee edema and hematoma, possible cellulitis Hyper Na due to free water deficit PLAN OF CARE s/p trach, cont PS trials as tolerated-not tolerated developed tachycardia /A fib with RVR off Cardizem gtt , weaning trial on hold s/p tap 01/15 -500 ml pleurla fluid pleural fl cx 01/15 GNB, glucose low -> c/w empyema abx as per ID recs s/p L thoracotomy 01/[address] in, monitor output ABG with hypoxia on 90% FiO2, increase back to 100% , on PEEP 8, CT chest pending repeated COVID 19 01/14 NGT s/p steroids IV ( started 12/23) continue for total of 10 days till 01/02 s/p Remdesivir (started 12/24 ), dc 12/30 initial diagnoses with COVID [facility] at [facility] 11/[facility], was not hypoxic and not intubated, was not treated with Remdesivivr , only received empiric abx for PNA DVT prophylaxis with Lovenox on diuresis with Lasix, monitor volumes closely creat remains stable consider d/c diamox afib rate control - s/p Cardizem gtt GI prophylaxis with PPI s/p PEG 01/09, asp precautions, severely leukopenic ? due to meds vs ? primary BM disease -resolving monitor counts immunofixation screen unremarkable transfuse to keep Hgb > 7 , s/p transfusion 01/13 previously evaluated by bioethics -> DNR/DNI status appropriate if not weanable in few days., consider transfer to LTAC for further management case discussed and evaluated by supervising physician Critical Care - Objective Last 24 Hour Vital Signs Date Time Temp Pulse Resp B/P (MAP) Pulse Ox O2 Delivery O2 Flow Rate FiO2 01/19/20 07:02 103 27 90 01/19/20 06:00 106 25 121/66 (84) 99 01/19/20 05:55 116 26 135/67 99 01/19/20 05:25 116 144/70 01/19/20 05:25 114 24 144/70 98 01/19/20 05:24 116 144/70 01/19/20 05:00 112 25 105/58 (74) 100 01/19/20 04:00 105 01/19/20 04:00 98.6 112 26 102/38 (59) 97 01/19/20 04:00 100 01/19/20 04:00 Mechanical Ventilator 01/19/20 03:45 106 24 100 01/19/20 03:00 100 25 114/68 (83) 99 01/19/20 02:00 103 26 113/66 (82) 96 01/19/20 00:45 106 27 99/55 (70) 01/19/20 00:00 Mechanical Ventilator 01/19/20 00:00 99.0 114 25 124/66 (85) 01/18/20 23:57 106 27 100 01/18/20 23:21 120 135/70 01/18/20 23:21 120 135/70 01/18/20 23:21 120 27 99/55 90 01/18/20 23:00 106 25 126/72 (90) 97 01/18/20 22:51 93 27 110/70 90 01/18/20 22:00 93 27 110/70 (83) 01/18/20 21:00 98 28 110/68 (82) 01/18/20 20:00 100 01/18/20 20:00 99.0 96 27 123/81 (95) 01/18/20 20:00 Mechanical Ventilator 01/18/20 20:00 94 01/18/20 19:54 101 26 100 01/18/20 19:00 108 26 130/78 (95) 90 01/18/20 18:21 126 136/76 01/18/20 18:21 126 136/76 01/18/20 18:00 126 25 136/76 (96) 01/18/20 17:00 107 25 130/67 (88) 01/18/20 16:29 115 01/18/20 16:00 Mechanical Ventilator 01/18/20 16:00 99.8 109 27 158/145 (149) 01/18/20 15:41 85 26 171/65 90 01/18/20 15:20 100 01/18/20 15:11 82 24 111/57 98 01/18/20 15:00 89 26 111/57 (75) 90 01/18/20 14:42 94 27 100 01/18/20 14:00 83 25 107/51 (69) 92 01/18/20 13:00 75 25 97/37 (57) 88 01/18/20 12:02 111 01/18/20 12:00 Mechanical Ventilator 01/18/20 12:00 100 01/18/20 12:00 99.2 112 24 118/72 (87) 100 01/18/20 11:53 101 126/61 01/18/20 11:53 101 126/61 01/18/20 11:00 101 24 126/61 (82) 98 01/18/20 10:35 101 23 100 01/18/20 10:00 103 25 129/70 (89) 97 Objective: CONDITION: critical General Appearance: morbidly obese , sedated, generalized anasarca ; on vent AC 600-18-90% PEEP 8 Lines, tubes and drains: LUE PICC , intact HEENT: normocephalic, atraumatic, anicteric, Neck: trach with Shiley # 8, secretions moderate amount, yellow color, thick consistency Respiratory/Chest: BS decreased left side , L chest tube with serosanguineous drainage, dressign C/D/I Cardiovascular/Chest: irregularly irregular - A fib . tachy at times , distant heart sounds, Abdomen: normal bowel sounds, non tender , obese, soft ; G tube with TF : Lockett Extremities: no calf tenderness, moderate edema - +3 BLE, R knee with large hematoma, edema, Skin Exam: warm/dry, multiple tattoos Neurologic: sedated Musculoskeletal: normal muscle bulk Micro: Microbiology Date/Time Source Procedure Growth Status 01/16/20 15:25 Body Fluid AFB Specimen Processing Tissue - Final Resulted 01/16/20 15:25 Body Fluid Acid Fast Bacilli Smear - Final Resulted 01/16/20 15:25 Body Fluid Acid Fast Bacilli Culture Pending Resulted 01/16/20 15:25 Thoracic Fluid Gram Stain - Final Resulted 01/16/20 15:25 Body Fluid Culture - Preliminary Gram Negative Bacillus 1 Gram Negative Bacillus 2 Resulted Accucheck: 136 Critical Care - Subjective ROS Limited/Unobtainable: Yes Intubation Day: Interval Events: no fever since yesterday, mild leukopenia s/p left tube thoracotomy 01/[address] chest pending ABG on 90% FiO2 with hypoxemia Condition: critical IV Access: PICC EKG Rhythm: Atrial Fibrillation FI02: 90 Vent Support Breath Rate: 18 Vent Support Mode: AC Vent Tidal Volume: 600 Sputum Amount: Scant PEEP: 8.0 PIP: 45 Tube Feeding Amount: 40 I&O: Intake and Output 01/18/20 01/19/20 19:00 07:00 Intake Total 2492.709 ml 1251.667 ml Output Total 765 ml 470 ml Balance 1727.709 ml 781.667 ml Free Water 600 ml 330 ml IV Total 1282.709 ml 441.667 ml Tube Feeding 480 ml 480 ml Other 130 ml Output Urine Total 765 ml 450 ml Chest Tube Drainage Total 20 ml CXR: CXR 01/17 Tracheostomy. There are low lung volumes. Again identified is complete opacification of the left thorax. Interval worsening airspace opacities throughout the right lung. Small to moderate right pleural effusion. Stable cardiomegaly. No clinically significant pneumothorax. Unchanged positioning of the left upper extremity PICC line. Colt Keen MD 01/19/20 1310: Critical Care - Asmt/Plan Assessment/Plan: Patient seen and examined with HEALTH CONSULTANT and the above formulated assessment and plan. L chest tube to water seal possibly tomorrow monitor R empyema Awaiting CT chest Aggressive pulmonary hygiene for likely mucous plugging L lung Time Spent (Minutes): other - 80 min cc time Luz Bowen HEALTH CONSULTANT Jan 19, 2020 09:45 Colt Keen MD Jan 19, 2020 13:10
[2020-01-19] MEDS: Midazolam 2mg/2ml Inj IVP PRN ×3 (09:48→17:49)
--- NOTE | 2020-01-19 10:00 | NUR ---
NURSE NOTES: Versed given at this time due to agitation.
--- NOTE | 2020-01-19 10:12 | General Progress Note ---
Subjective ROS Limited/Unobtainable: Yes Allergies: Coded Allergies: ERYTHROMYCIN BASE (Verified Allergy, Severe, 12/12/19) HALOPERIDOL (Verified Allergy, Unknown, 12/12/19) VANCOMYCIN (Unverified Adverse Reaction, Intermediate, Shortness of Breath, 12/12/19) Objective Last 24 Hour Vital Signs Date Time Temp Pulse Resp B/P (MAP) Pulse Ox O2 Delivery O2 Flow Rate FiO2 01/19/20 07:02 103 27 90 01/19/20 06:00 106 25 121/66 (84) 99 01/19/20 05:55 116 26 135/67 99 01/19/20 05:25 116 144/70 01/19/20 05:25 114 24 144/70 98 01/19/20 05:24 116 144/70 01/19/20 05:00 112 25 105/58 (74) 100 01/19/20 04:00 105 01/19/20 04:00 98.6 112 26 102/38 (59) 97 01/19/20 04:00 100 01/19/20 04:00 Mechanical Ventilator 01/19/20 03:45 106 24 100 01/19/20 03:00 100 25 114/68 (83) 99 01/19/20 02:00 103 26 113/66 (82) 96 01/19/20 00:45 106 27 99/55 (70) 01/19/20 00:00 Mechanical Ventilator 01/19/20 00:00 99.0 114 25 124/66 (85) 01/18/20 23:57 106 27 100 01/18/20 23:21 120 135/70 01/18/20 23:21 120 135/70 01/18/20 23:21 120 27 99/55 90 01/18/20 23:00 106 25 126/72 (90) 97 01/18/20 22:51 93 27 110/70 90 01/18/20 22:00 93 27 110/70 (83) 01/18/20 21:00 98 28 110/68 (82) 01/18/20 20:00 100 01/18/20 20:00 99.0 96 27 123/81 (95) 01/18/20 20:00 Mechanical Ventilator 01/18/20 20:00 94 01/18/20 19:54 101 26 100 01/18/20 19:00 108 26 130/78 (95) 90 01/18/20 18:21 126 136/76 01/18/20 18:21 126 136/76 01/18/20 18:00 126 25 136/76 (96) 01/18/20 17:00 107 25 130/67 (88) 01/18/20 16:29 115 01/18/20 16:00 Mechanical Ventilator 01/18/20 16:00 99.8 109 27 158/145 (149) 01/18/20 15:41 85 26 171/65 90 01/18/20 15:20 100 01/18/20 15:11 82 24 111/57 98 01/18/20 15:00 89 26 111/57 (75) 90 01/18/20 14:42 94 27 100 01/18/20 14:00 83 25 107/51 (69) 92 01/18/20 13:00 75 25 97/37 (57) 88 01/18/20 12:02 111 01/18/20 12:00 Mechanical Ventilator 01/18/20 12:00 100 01/18/20 12:00 99.2 112 24 118/72 (87) 100 01/18/20 11:53 101 126/61 01/18/20 11:53 101 126/61 01/18/20 11:00 101 24 126/61 (82) 98 01/18/20 10:35 101 23 100 Intake and Output 01/18/20 01/19/20 19:00 07:00 Intake Total 2492.709 ml 1251.667 ml Output Total 765 ml 470 ml Balance 1727.709 ml 781.667 ml Free Water 600 ml 330 ml IV Total 1282.709 ml 441.667 ml Tube Feeding 480 ml 480 ml Other 130 ml Output Urine Total 765 ml 450 ml Chest Tube Drainage Total 20 ml Laboratory Tests 01/19/20 03:45: White Blood Count 4.7L, Red Blood Count 2.48L, Hemoglobin 7.2L, Hematocrit 23.1L , Mean Corpuscular Volume 93, Mean Corpuscular Hemoglobin 29.2, Mean Corpuscular Hemoglobin Concent 31.4L, Red Cell Distribution Width 18.9H, Platelet Count 145L , Mean Platelet Volume 7.6, Neutrophils (%) (Auto) , Lymphocytes (%) (Auto) , Monocytes (%) (Auto) , Eosinophils (%) (Auto) , Basophils (%) (Auto) , Differential Total Cells Counted 100, Neutrophils % (Manual) 78H, Lymphocytes % (Manual) 13L, Monocytes % (Manual) 1, Eosinophils % (Manual) 1, Basophils % (Manual) 0, Band Neutrophils 7, Nucleated Red Blood Cells 1, Platelet Estimate DecreasedL, Platelet Morphology Normal, Polychromasia 1+, Hypochromasia 1+, Anisocytosis 1+, Sodium Level 144, Potassium Level 4.1, Chloride Level 112H, Carbon Dioxide Level 21, Anion Gap 11, Blood Urea Nitrogen 27H, Creatinine 1.5H, Estimat Glomerular Filtration Rate 34.7, Glucose Level 146H, Calcium Level 7.9L 01/19/20 07:28: Arterial Blood pH 7.292L, Arterial Blood Partial Pressure CO2 42.8, Arterial B lood Partial Pressure O2 64.1L, Arterial Blood HCO3 20.2L, Arterial Blood Oxygen Saturation 89.5*L, Arterial Blood Base Excess -5.9L, Eugene Test Positive Height (Feet): 5 Height (Inches): 6.00 Weight (Pounds): 343 General Appearance: morbidly obese, other - trach vent mild secretions, needs sedation Neck: normal alignment Cardiovascular: regularly irregular Respiratory/Chest: rhonchi - bilaterally Abdomen: soft Edema: moderate edema Neurologic: unresponsive Assessment/Plan Problem List: (1) Schizophrenia ICD Codes: F20.9 - Schizophrenia, unspecified SNOMED: 61116547 (2) GERD (gastroesophageal reflux disease) ICD Codes: K21.9 - Gastro-esophageal reflux disease without esophagitis SNOMED: 128236686 (3) Lymphadema (4) Smoker ICD Codes: F17.200 - Nicotine dependence, unspecified, uncomplicated SNOMED: 68127468 (5) Atrial fibrillation with rapid ventricular response ICD Codes: I48.91 - Unspecified atrial fibrillation SNOMED: 350627499362556 (6) CKD (chronic kidney disease) stage 3, GFR 30-59 ml/min ICD Codes: N18.3 - Chronic kidney disease, stage 3 (moderate) SNOMED: 489924625 (7) NATALIE (acute kidney injury) ICD Codes: N17.9 - Acute kidney failure, unspecified SNOMED: 9457938, 76252355 (8) COPD (chronic obstructive pulmonary disease) ICD Codes: J44.9 - Chronic obstructive pulmonary disease, unspecified SNOMED: 08317216 (9) UGI bleed ICD Codes: K92.2 - Gastrointestinal hemorrhage, unspecified SNOMED: 22383629 (10) Dysphagia ICD Codes: R13.10 - Dysphagia, unspecified SNOMED: 54555160, 919577863 (11) UTI (urinary tract infection) ICD Codes: N39.0 - Urinary tract infection, site not specified SNOMED: 37810314 (12) ESBL (extended spectrum beta-lactamase) producing bacteria infection ICD Codes: A49.9 - Bacterial infection, unspecified; Z16.12 - Extended spectrum beta lactamase (ESBL) resistance SNOMED: 504071804 (13) Dehydration ICD Codes: E86.0 - Dehydration SNOMED: 41417770 (14) CHF exacerbation ICD Codes: I50.9 - Heart failure, unspecified SNOMED: 754871676, 61172543885946 (15) Acute respiratory failure ICD Codes: J96.00 - Acute respiratory failure, unspecified whether with hypoxia or hypercapnia SNOMED: 00432617 (16) COVID-19 ICD Codes: U07.1 - COVID-19 SNOMED: 558759859 (17) Pneumonia ICD Codes: J18.9 - Pneumonia, unspecified organism SNOMED: 706928579 Qualifiers: (18) Hematoma of lower leg ICD Codes: S80.10XA - Contusion of unspecified lower leg, initial encounter SNOMED: 611457785 (19) CKD (chronic kidney disease) stage 3, GFR 30-59 ml/min ICD Codes: N18.3 - Chronic kidney disease, stage 3 (moderate) SNOMED: 412463859 (20) Pancytopenia ICD Codes: D61.818 - Other pancytopenia SNOMED: 547652607 Status: stable Assessment/Plan: resp distress, icu, trach, vent, natalie on ckd,,now stable, I/O reviewed, hematoma RLE stop eliquis , lovenox now iv protonix, rx esbl and + vre uti,g+ cocci , remains high risk, d/w psych, ID, cardiology, ,covid neg prior positive this admission now neg, , grave prognosis, fungemia treated with micafungin likely will be unable to wean for a long time, agitated when tried to wean , ,all lab and orders reviewed , no active bleeding , low Hb to transfuse 01/08 preop, done, , reculture, d/w dr curran needs trach, done,Needs gastrostomy unable to sign, done Dr Curran thinks that she might be able to wean gradually after trach placed, febrile again and infiltrates, trach scheduled 01/08, done, pancytopenia stable may be from sepsis or meds(remdesivir, chlorpromazine, micafungin, linezolid), posssible primary BM disease, wbc and platelets a bit better now, to observe ,immunofixation ordered,negative, hypernatremia and free water gt,stop D5w iv , Na better restart lasix titrate sedatives , some distress and now on 100% FIO2, cxr complete opacification of the left thorax. Interval worsening airspace opacities throughout the right lung. cardizem drip for rapid afib,now transition to via GT, s/p thoracentesis culture pending icu time 35 min Benjamin Dumont MD Jan 19, 2020 10:12
[2020-01-19] MEDS: Multivitamins W/Minerals 15 ML UDC GT SCH (11:45)
--- NOTE | 2020-01-19 12:00 | NUR ---
NURSE NOTES: Patient calm and stable at this time.
[2020-01-19] MEDS ORDERED: NS Irrig 1000ml ONE (12:04)
[2020-01-19] MEDS ORDERED: NS 275ml ONE (12:04)
--- NOTE | 2020-01-19 13:02 | Surgery Progress Note ---
Surgery Progress Note Subjective Procedure Performed left tube thoracotomy Additional Comments stable labs noted ct with serous output no n/v respiratory slightly improved Objective Last 24 Hour Vital Signs Date Time Temp Pulse Resp B/P (MAP) Pulse Ox O2 Delivery O2 Flow Rate FiO2 01/19/20 12:00 Mechanical Ventilator 01/19/20 12:00 100 01/19/20 11:46 130 121/76 01/19/20 11:46 130 121/76 01/19/20 11:09 120 27 90 01/19/20 11:00 120 27 135/68 (90) 98 01/19/20 10:00 105 30 131/63 (85) 01/19/20 09:00 104 29 126/66 (86) 01/19/20 08:00 117 01/19/20 08:00 98.6 97 29 109/55 (73) 01/19/20 08:00 100 01/19/20 08:00 Mechanical Ventilator 01/19/20 07:02 103 27 90 01/19/20 06:00 106 25 121/66 (84) 99 01/19/20 05:55 116 26 135/67 99 01/19/20 05:25 116 144/70 01/19/20 05:25 114 24 144/70 98 01/19/20 05:24 116 144/70 01/19/20 05:00 112 25 105/58 (74) 100 01/19/20 04:00 105 01/19/20 04:00 98.6 112 26 102/38 (59) 97 01/19/20 04:00 100 01/19/20 04:00 Mechanical Ventilator 01/19/20 03:45 106 24 100 01/19/20 03:00 100 25 114/68 (83) 99 01/19/20 02:00 103 26 113/66 (82) 96 01/19/20 00:45 106 27 99/55 (70) 01/19/20 00:00 Mechanical Ventilator 01/19/20 00:00 99.0 114 25 124/66 (85) 01/18/20 23:57 106 27 100 01/18/20 23:21 120 135/70 01/18/20 23:21 120 135/70 01/18/20 23:21 120 27 99/55 90 01/18/20 23:00 106 25 126/72 (90) 97 01/18/20 22:51 93 27 110/70 90 01/18/20 22:00 93 27 110/70 (83) 01/18/20 21:00 98 28 110/68 (82) 01/18/20 20:00 100 01/18/20 20:00 99.0 96 27 123/81 (95) 01/18/20 20:00 Mechanical Ventilator 01/18/20 20:00 94 01/18/20 19:54 101 26 100 01/18/20 19:00 108 26 130/78 (95) 90 01/18/20 18:21 126 136/76 01/18/20 18:21 126 136/76 01/18/20 18:00 126 25 136/76 (96) 01/18/20 17:00 107 25 130/67 (88) 01/18/20 16:29 115 01/18/20 16:00 Mechanical Ventilator 01/18/20 16:00 99.8 109 27 158/145 (149) 01/18/20 15:41 85 26 171/65 90 01/18/20 15:20 100 01/18/20 15:11 82 24 111/57 98 01/18/20 15:00 89 26 111/57 (75) 90 01/18/20 14:42 94 27 100 01/18/20 14:00 83 25 107/51 (69) 92 I&O Intake and Output 01/18/20 01/19/20 19:00 07:00 Intake Total 2492.709 ml 1251.667 ml Output Total 765 ml 470 ml Balance 1727.709 ml 781.667 ml Free Water 600 ml 330 ml IV Total 1282.709 ml 441.667 ml Tube Feeding 480 ml 480 ml Other 130 ml Output Urine Total 765 ml 450 ml Chest Tube Drainage Total 20 ml Dressing: saturated Drains: other Cardiovascular: RSR Respiratory: decreased breath sounds Abdomen: soft, non-tender, present bowel sounds Extremities: no tenderness, no cyanosis Laboratory Tests Test 01/19/20 03:45 01/19/20 07:28 White Blood Count 4.7 K/UL (4.8-10.8) L Red Blood Count 2.48 M/UL (4.20-5.40) L Hemoglobin 7.2 G/DL (12.0-16.0) L Hematocrit 23.1 % (37.0-47.0) L Mean Corpuscular Volume 93 FL (80-99) Mean Corpuscular Hemoglobin 29.2 PG (27.0-31.0) Mean Corpuscular Hemoglobin Concent 31.4 G/DL (32.0-36.0) L Red Cell Distribution Width 18.9 % (11.6-14.8) H Platelet Count 145 K/UL (150-450) L Mean Platelet Volume 7.6 FL (6.5-10.1) Neutrophils (%) (Auto) % (45.0-75.0) Lymphocytes (%) (Auto) % (20.0-45.0) Monocytes (%) (Auto) % (1.0-10.0) Eosinophils (%) (Auto) % (0.0-3.0) Basophils (%) (Auto) % (0.0-2.0) Differential Total Cells Counted 100 Neutrophils % (Manual) 78 % (45-75) H Lymphocytes % (Manual) 13 % (20-45) L Monocytes % (Manual) 1 % (1-10) Eosinophils % (Manual) 1 % (0-3) Basophils % (Manual) 0 % (0-2) Band Neutrophils 7 % (0-8) Nucleated Red Blood Cells 1 /100 WBC Platelet Estimate Decreased L Platelet Morphology Normal Polychromasia 1+ Hypochromasia 1+ Anisocytosis 1+ Sodium Level 144 MMOL/L (136-145) Potassium Level 4.1 MMOL/L (3.5-5.1) Chloride Level 112 MMOL/L (98-107) H Carbon Dioxide Level 21 MMOL/L (21-32) Anion Gap 11 mmol/L (5-15) Blood Urea Nitrogen 27 mg/dL (7-18) H Creatinine 1.5 MG/DL (0.55-1.30) H Estimat Glomerular Filtration Rate 34.7 mL/min (>60) Glucose Level 146 MG/DL (74-106) H Calcium Level 7.9 MG/DL (8.5-10.1) L Arterial Blood pH 7.292 (7.350-7.450) Arterial Blood Partial Pressure CO2 42.8 mmHg (35.0-45.0) Arterial Blood Partial Pressure O2 64.1 mmHg (75.0-100.0) L Arterial Blood HCO3 20.2 mmol/L (22.0-26.0) L Arterial Blood Oxygen Saturation 89.5 % (95-100) *L Arterial Blood Base Excess -5.9 (-2-2) L Eugene Test Positive Plan Problems: (1) Urinary tract infection (2) CHF exacerbation (3) History of schizophrenia (4) Atrial fibrillation with RVR (5) Schizophrenia (6) GERD (gastroesophageal reflux disease) (7) Smoker (8) Atrial fibrillation with rapid ventricular response (9) Lymphadema (10) COPD (chronic obstructive pulmonary disease) (11) CKD (chronic kidney disease) stage 3, GFR 30-59 ml/min (12) NATALIE (acute kidney injury) (13) Dehydration (14) Dysphagia (15) UTI (urinary tract infection) (16) UGI bleed (17) ESBL (extended spectrum beta-lactamase) producing bacteria infection (18) Constipation (19) Lactic acidosis (20) Tinea cruris (21) Onychomycosis (22) Emesis (23) Essential hypertension (24) Anemia (25) Cough (26) Depression (27) Depression (28) Edema (29) Rash (30) Opiate dependence (31) Opiate dependence (32) Opiate dependence (33) Opiate dependence (34) Pyelonephritis (35) Sepsis (36) UTI (urinary tract infection) (37) Nausea and vomiting (38) Abdominal pain Assessment & Plan: [age]-year-old female obese white abdominal pain deep tissue injury identified limited mobility on HD. KUB noted tube in place continue meds feeds Does not seem obstructed We will monitor lines noted. plan change resume tube feeds labs okay FINDINGS: Lower thorax: Obscuration of the left costophrenic angle suggestive of pleural effusion. Intraperitoneal space: No free air. Gastrointestinal tract: Unremarkable. No dilation. Bones/joints: Unremarkable. Tubes, lines and devices: The nasogastric tube has the tip at the mid inferior aspect of the gastric body. Other findings: Nonspecific gas pattern. Single frontal view of the abdomen demonstrates tip of the enteric tube and distal side-port projecting over the stomach. Gas is identified within the nondistended large bowel. There is a paucity of small bowel gas seen. Partially visualized left pleural effusion. No other significant interval change. (39) Chest pain (40) Chest pain (41) Nausea (42) Obesity (43) Chronic ulcer of leg (44) Chronic ulcer of leg (45) Chronic ulcer of leg (46) ACS (acute coronary syndrome) (47) Acute chest pain (48) Encounter for dressing change or suture removal (49) Left leg cellulitis (50) Acute encephalopathy (51) Encounter for wound re-check (52) Intractable nausea and vomiting (53) Infection due to ESBL-producing Escherichia coli (54) Chronic venous stasis (55) Change of dressing (56) Change of dressing (57) Change of dressing (58) Change of dressing (59) Change of dressing (60) Change of dressing (61) Change of dressing (62) Change of dressing (63) ESBL urine (64) Lymphadema (65) Lymphedema (66) Lymphedema (67) Lymphedema (68) Lymphedema (69) Lymphedema (70) Lymphedema (71) Lymphedema (72) Lymphedema (73) Open wound of foot (74) Open wound of foot (75) cellulitis (76) chronic lymphedema (77) chronic lymphedema (78) chronic lymphedema (79) hypertension uncontrolled (80) hypertension uncontrolled (81) Intertrigo (82) Sciatica (83) Cellulitis (84) Schizophrenia (85) Chronic bronchitis (86) HTN (hypertension) (87) Venous stasis ulcers (88) Medication refill (89) Chest pain, atypical (90) BMI 45.0-49.9, adult (91) Lymphedema of both lower extremities (92) hypertension uncontrolled (93) hypertension uncontrolled (94) hypertension uncontrolled (95) tenia corpus (96) Deep tissue injury Assessment & Plan: Morbidly obese pt whom presented on admission with Pressure injuries, Edemae bilat lower extremities eschar to dorsal aspects of metatarsals. Pt is very demanding of staff and can be resistive to repositioning. DTPI noted to L Sacrum(L)5.5cm x (W)2.5cm. Base of Pressure Injury is Maroon and indurated with surrounding non-blanchable erythema DTPI R Sacrum(L)5.5cm x (W)2.3cm. Base of Pressure Injury is maroon with purpuric center that is fluctuant. Pt complained of tenderness when minimally pa lpated. Bilat lower extremities are edematous . Dry eschar noted to nail matrix and tip of L 1st metatarsal, Dorsal L 2nd metatarsal, R 2nd and R 4th metatarsals. Both heels are boggy with non-Blanchable erythema. blisters forming on Right lower extremity anterior tibia. not infected cellulitis / edema on b/l le stable cont abx Tx.Plan: Apply Moisture Barrier Paste to Sacrum R and L gluteal cheeks. Cover with Optifoam drsgs. Change every 3 days and prn. Apply Betadine to dry eschar metatarsals both feet Daily. Apply Cavilon Skin Barrier to both heels. Cover each heel with Optifoam drsgs. Change every 7days and prn. Reposition at least every 2hours or as tolerated. Off-load heels with pillow. right leg hematoma stable critically ill and edema on right leg has compromised dermis over the hematoma. will likely need debridement once improved (97) COVID-19 Assessment & Plan: ++ on vent weaning abx as per ID (98) Respiratory failure Assessment & Plan: not able to wean safely will plan for trach case discussed with medical team, pulm, icu. recommended to trach given medical condition. medically indicated and recommended. s/p trach 01/08 s/p trach more comfortable less agitated on vent weaning here is complete or near complete opacification of left hemithorax. There is increasing pleural fluid on the right. Interstitial and airspace disease on the right is unchanged. Tracheostomy is again demonstrated Impression: Complete or near complete opacification left hemithorax. This may indicate rapidly accumulating pleural effusion, versus atelectatic left lung. chest tube 01/17 left (99) Pneumonia Juan Manuel Buckner Jan 19, 2020 13:02
[2020-01-19] MEDS: Acetylcysteine 20% Soln 4ml HHN SCH ×3 (13:30→23:24)
--- NOTE | 2020-01-19 16:00 | NUR ---
NURSE NOTES: Versed given at this time due to agitation.
--- NOTE | 2020-01-19 16:38 | Cardiology Progress Note ---
Subjective DATE OF SERVICE: Jan 19, 2020 Doing poorly - remains in ICU in critical condition with guarded prognosis. Now s/p left thoracotomy/chest tube for opacified left lung. Remains on vent support - s/p trach. BP range remaining low normal range. Remains COVID19 positive. Monitor: AFIb with better rate control on cardizem gtts to oral drug conversion. Venous Duplex: negative for DVT Renal fxn and free water deficit worsening Objective Last 24 Hour Vital Signs Date Time Temp Pulse Resp B/P (MAP) Pulse Ox O2 Delivery O2 Flow Rate FiO2 01/19/20 15:09 112 30 100 01/19/20 15:00 98.4 119 28 129/70 (89) 98 01/19/20 14:59 96 30 151/95 94 01/19/20 14:00 109 33 137/67 (90) 99 01/19/20 13:00 122 28 131/68 (89) 99 01/19/20 12:00 110 01/19/20 12:00 Mechanical Ventilator 01/19/20 12:00 110 31 134/66 (88) 99 01/19/20 12:00 100 01/19/20 11:46 130 121/76 01/19/20 11:46 130 121/76 01/19/20 11:09 120 27 90 01/19/20 11:00 120 27 135/68 (90) 98 01/19/20 10:00 105 30 131/63 (85) 01/19/20 09:00 104 29 126/66 (86) 01/19/20 08:00 117 01/19/20 08:00 98.6 97 29 109/55 (73) 01/19/20 08:00 100 01/19/20 08:00 Mechanical Ventilator 01/19/20 07:02 103 27 90 01/19/20 06:00 106 25 121/66 (84) 99 01/19/20 05:55 116 26 135/67 99 01/19/20 05:25 116 144/70 01/19/20 05:25 114 24 144/70 98 01/19/20 05:24 116 144/70 01/19/20 05:00 112 25 105/58 (74) 100 01/19/20 04:00 105 01/19/20 04:00 98.6 112 26 102/38 (59) 97 01/19/20 04:00 100 01/19/20 04:00 Mechanical Ventilator 01/19/20 03:45 106 24 100 01/19/20 03:00 100 25 114/68 (83) 99 01/19/20 02:00 103 26 113/66 (82) 96 01/19/20 00:45 106 27 99/55 (70) 01/19/20 00:00 Mechanical Ventilator 01/19/20 00:00 99.0 114 25 124/66 (85) 01/18/20 23:57 106 27 100 01/18/20 23:21 120 135/70 01/18/20 23:21 120 135/70 01/18/20 23:21 120 27 99/55 90 01/18/20 23:00 106 25 126/72 (90) 97 01/18/20 22:51 93 27 110/70 90 01/18/20 22:00 93 27 110/70 (83) 01/18/20 21:00 98 28 110/68 (82) 01/18/20 20:00 100 01/18/20 20:00 99.0 96 27 123/81 (95) 01/18/20 20:00 Mechanical Ventilator 01/18/20 20:00 94 01/18/20 19:54 101 26 100 01/18/20 19:00 108 26 130/78 (95) 90 01/18/20 18:21 126 136/76 01/18/20 18:21 126 136/76 01/18/20 18:00 126 25 136/76 (96) 01/18/20 17:00 107 25 130/67 (88) ROS: unchanged from 12/12/19 HEENT: Orally intubated, Mechanically Ventilated, Thin secretions ET Tube, othe r - NGtube RHYTHM: NSR, ST LUNGS: diminished breath sounds, right-sided rhonchi CARDIAC: normal S1 and S2, irregularly irregular ABDOMEN: other - obese EXTREMITIES: moderate edema - mostly non pitting, other - hematoma right leg Laboratory Tests Test 01/19/20 03:45 01/19/20 07:28 White Blood Count 4.7 K/UL (4.8-10.8) L Red Blood Count 2.48 M/UL (4.20-5.40) L Hemoglobin 7.2 G/DL (12.0-16.0) L Hematocrit 23.1 % (37.0-47.0) L Mean Corpuscular Volume 93 FL (80-99) Mean Corpuscular Hemoglobin 29.2 PG (27.0-31.0) Mean Corpuscular Hemoglobin Concent 31.4 G/DL (32.0-36.0) L Red Cell Distribution Width 18.9 % (11.6-14.8) H Platelet Count 145 K/UL (150-450) L Mean Platelet Volume 7.6 FL (6.5-10.1) Neutrophils (%) (Auto) % (45.0-75.0) Lymphocytes (%) (Auto) % (20.0-45.0) Monocytes (%) (Auto) % (1.0-10.0) Eosinophils (%) (Auto) % (0.0-3.0) Basophils (%) (Auto) % (0.0-2.0) Differential Total Cells Counted 100 Neutrophils % (Manual) 78 % (45-75) H Lymphocytes % (Manual) 13 % (20-45) L Monocytes % (Manual) 1 % (1-10) Eosinophils % (Manual) 1 % (0-3) Basophils % (Manual) 0 % (0-2) Band Neutrophils 7 % (0-8) Nucleated Red Blood Cells 1 /100 WBC Platelet Estimate Decreased L Platelet Morphology Normal Polychromasia 1+ Hypochromasia 1+ Anisocytosis 1+ Sodium Level 144 MMOL/L (136-145) Potassium Level 4.1 MMOL/L (3.5-5.1) Chloride Level 112 MMOL/L (98-107) H Carbon Dioxide Level 21 MMOL/L (21-32) Anion Gap 11 mmol/L (5-15) Blood Urea Nitrogen 27 mg/dL (7-18) H Creatinine 1.5 MG/DL (0.55-1.30) H Estimat Glomerular Filtration Rate 34.7 mL/min (>60) Glucose Level 146 MG/DL (74-106) H Calcium Level 7.9 MG/DL (8.5-10.1) L Arterial Blood pH 7.292 (7.350-7.450) Arterial Blood Partial Pressure CO2 42.8 mmHg (35.0-45.0) Arterial Blood Partial Pressure O2 64.1 mmHg (75.0-100.0) L Arterial Blood HCO3 20.2 mmol/L (22.0-26.0) L Arterial Blood Oxygen Saturation 89.5 % (95-100) *L Arterial Blood Base Excess -5.9 (-2-2) L Eugene Test Positive Assessment/Plan Assessment/Plan CRITICAL AND GUARDED Left lung opacification - s/p chest tube placement 01/18/20. Acute respiratory failure - s/p trach Acute on chronic respiratory acidosis AFiB with labile heart rates, and now persistent RVR. CHF, ac/chr diastolic BLE edema Sepsis with shock obesity COPD with bronchospasm Acute renal failure - worsening Pleural effusion GI bleeding Anemia - multifactorial, now worse Covid 19 PNA Hypokalemia Dehydration/hypernatremia worsened Hypertension/HHD with labile BP - now stable range. Vent support Chest tube management Titrate beta yves and oral diltiazem, to taper off cardizem gtts. PRBC transfusion for hb below 7gm/dl Monitor acid/base parameters. Antimicrobials Lovenox added for cardioembolic prophyl Continued manager cardiac cath Potassium and add'l free water suppl to continue. Agree with DNR Jerome Meek MD Jan 19, 2020 16:38
--- NOTE | 2020-01-19 18:00 | NUR ---
NURSE NOTES: Versed given at this time due to agitation.
--- NOTE | 2020-01-19 19:30 | NUR ---
NURSE NOTES: Received report from NOEL Edmond. Pt is resting on the bed and agitated and able to open the eyes to voice. Trach to Vent dependent ad setting with Ac:18, T: 600, P:8, FiO2 100% with SaO2 99% noted. Provided oral care and suction. Pt has G-tube and on running with Glucerna 1.5@ 40cc/hr and no residual noted. Pt has Lockett cath and patent and drainage well. Pt has Lt. upper arm PICC line and dressing is clean and dry. Dressing is clean and dry on wound area. On P-200 mattress for wound management. Noted generalized edema. Pt has bilateral soft wrist restraint. checked comfort and circulation. Pt has Lt. chest tube with intermittent suction and dressing is intact. No sign of subcutaneous emphysema and crepitus. Placed fall precaution. Will continue to care plan.
[2020-01-19] MEDS: Dyna-Hex 2% Top Sol 2oz TOPIC SCH (20:17)
[2020-01-19] MEDS: Acetaminophen 650mg/20.3ml GT PRN (20:25)
--- NOTE | 2020-01-19 20:25 | NUR ---
NURSE NOTES: Noted BT: 100.5F by axillary. Given Tylenol Prn medication as ordered and applied cooling measure. On running with G-tube feeding @ 40cc/hr and tolerated well. Will continue to monitor any change of condition.
--- NOTE | 2020-01-19 20:49 | NUR ---
NURSE HAND-OFF REPORT: Latest Vital Signs: Temperature 100.5 , Pulse 109 , B/P 95 /54 , Respiratory Rate 31 , O2 SAT 98 , Mechanical Ventilator, O2 Flow Rate . Vital Sign Comment: Stable EKG Rhythm: Atrial Fibrillation Rhythm change?: N Notified?: N -MD Gaviota UNDERWOOD Response: Latest Abreu Fall Score: 75 Fall Risk: High Risk Safety Measures: Call light Within Reach, Bed Alarm Zone 1, Side Rails Side Rails x3, Bed position Low and Locked. Fall Precautions: Yellow Socks Yellow Gown Door Sign Patient Fall Education Report given to Ignacia COHEN. Patient plan of care endorsed.
[2020-01-19] MEDS: Miralax 17gm pkt GT SCH (21:00)
[2020-01-19] MEDS: Ascorbic Acid 500mg tab GT SCH (21:03)
--- NOTE | 2020-01-19 22:00 | NUR ---
NURSE NOTES: Suction and oral care was done. Turn and reposition. Tolerated well with current Vent setting. Will continue to monitor any change of condition.
[2020-01-20] VITALS (26 sets, daily range): BP systolic 81–119; BP diastolic 41–83
--- NOTE | 2020-01-20 | NUR ---
NURSE NOTES: Pt is sleeping on the bed and no sign of acute distress noted. Noted BP108/78mmHg, HR 128's and SaO2 97% with current Vent setting. Given suction and mouth care. Rechecked BT: 99.5F. Keep cooling measure. On Lt. chest tube and connected with low suction. Dressing is intact. Changed position. Will continue to monitor any change of condition.
[2020-01-20] MEDS: dilTIAZem HCl 90mg tab GT SCH ×4 (00:11→18:29)
[2020-01-20] MEDS: BACTRIM IV SCH ×4 (01:34→20:13)
[2020-01-20] MEDS: D5W IV SCH ×4 (01:34→20:13)
--- NOTE | 2020-01-20 02:00 | NUR ---
NURSE NOTES: No sig of acute distress. Suction and mouth care was done. Turn and reposition. Will continue to monitor any change of condition.
[2020-01-20] MEDS: Metoclopramide 10mg/2ml Inj IVP SCH ×4 (03:15→21:39)
--- NOTE | 2020-01-20 04:00 | NUR ---
NURSE NOTES: Morning care was done. Cleaned Pt and applied lotion and cream. Changed wound dressing. SaO2 99-100% with Current Vent setting. On ekg monitor with A-fib. Tolerated well G- tube feeing and no residual noted. BT checked 99F. keep cooling measure. Suction and oral care was done. Turn and reposition. chest tube site intact. Placed fall precaution. will continue to monitor any change of condition.
[2020-01-20] MEDS: LORazepam 1mg tab GT SCH ×3 (05:55→21:41)
[2020-01-20] MEDS: Metoprolol Tartrate 50mg tab GT SCH ×4 (06:00→18:28)
--- NOTE | 2020-01-20 06:00 | NUR ---
NURSE NOTES: SaO2 99-100% with current Vent setting. Provided suction and oral care. changed position. Will continue to monitor any change of condition.
--- NOTE | 2020-01-20 07:15 | NUR ---
NURSE HAND-OFF REPORT: Latest Vital Signs: Temperature 99.0 , Pulse 113 , B/P 103 /71 , Respiratory Rate 25 , O2 SAT 100 , Mechanical Ventilator, O2 Flow Rate . EKG Rhythm: Atrial Fibrillation Rhythm change?: N Latest Abreu Fall Score: 75 Fall Risk: High Risk Safety Measures: Call light Within Reach, Bed Alarm Zone 1, Side Rails Side Rails x3, Bed position Low and Locked. Fall Precautions: Yellow Socks Yellow Gown Door Sign Patient Fall Education Report given to NOEL Cody. Pt is sleeping on the bed and no sing of acute distress noted. On cutting and boning supervisor with SR, SaO2 100% with current Vent setting. Tolerated well with G-tube feeding. On Lt. chest tube with low continuos suction.
[2020-01-20] MEDS: Acetylcysteine 20% Soln 4ml HHN SCH ×3 (07:24→19:43)
--- NOTE | 2020-01-20 07:30 | NUR ---
NURSE NOTES: Patient received from Ignacia COHEN. Patient stable at this time with no s/sx of pain or distress. AOx0 resting at this time. RR even and unlabored on trach shiley 8. Ventilator settings as ordered AC 18 600mL 100% P8. Cardiac sounds benign. Breath sounds diminished, rhoncus. Bowels sounds present. Feeding infusin. Zero residual. Gtube. Generalized edema present with hands +1 and ankles +3. Lockett in place draining well to gravity. LT UA PICC line dressing dry and intact. Patent with fluids TKO to both ports. Restraints on with good ROM, sensation and circulation. Still attempting to grab and pull on devices and staff when moved. Dependent edema present and previously noted unrelated to restraints. Side rails upx2, bed low and locked.
[2020-01-20] MEDS ORDERED: Sterile Water Irrig 1000ml IRRIG ONE (08:48)
[2020-01-20] MEDS ORDERED: Tubing IV Secondary IV ONE (08:48)
[2020-01-20] MEDS ORDERED: NS 275ml ONE (08:48)
[2020-01-20] MEDS: Enoxaparin 60mg Inj SUBQ SCH (09:00)
[2020-01-20] MEDS: Docusate 100mg/10ml Liq GT SCH ×2 (09:21→21:38)
[2020-01-20] MEDS: Pantoprazole Inj IVP SCH ×2 (09:22→21:39)
[2020-01-20] MEDS: Bacitracin Oint 15gm Tube TOPIC SCH ×2 (09:23→22:44)
--- NOTE | 2020-01-20 09:30 | Pulmonolgy Critical Care Note ---
Luz Bowen ASSET PROTECTION ASSISTANT 01/20/20 0930: Critical Care - Asmt/Plan Assessment/Plan: ASSESSMENT acute hypoxemic hypercapnic resp failure, requiring intubation 12/22 failure to wean s/p trach 01/08 COVID 19 PNA ( last test NGT) sepsis fungemia empyema s/p L thoracotomy 01/17 UTI with E coli ESBL UTI VRE possible aspiration PNA - s/p treatment Moderate R pleural effusion s/p tap COPD Atrial fibrillation with RVR CHF Acute renal failure on CKD Severe anemia dysphagia, s/p PEG 01/08 Thrombocytopenia Status post ground fall Tobacco dependency Morbid obesity probable GARY R knee edema and hematoma, possible cellulitis Hyper Na due to free water deficit PLAN OF CARE s/p trach, not tolerated weaning trials m developed tachycardia /A fib with RVR now off Cardizem gtt , weaning trial on hold s/p tap 01/15 -500 ml pleura fluid pleural fl cx 01/15 E coli ESBL, GPC and yeast , glucose low -> c/w empyema abx as per ID recs -> Meropenem, Linezolid and Fluconazole s/p L thoracotomy 01/[address] in, monitor output -only 45 cc ? water seal will discuss with surgeon ABG stable , decrease PEEP ; repeat ABG in am CT chest pending repeated COVID 19 01/14 NGT s/p steroids IV ( started 12/23) continue for total of 10 days till 01/02 s/p Remdesivir (started 12/24 ), dc 12/30 initial diagnoses with COVID 19 at [facility] 11/29, was not hypoxic and not intubated, was not treated with Remdesivivr , only received empiric abx for PNA DVT prophylaxis with Lovenox on diuresis with Lasix, monitor volumes closely creat remains stable consider d/c diamox afib rate control - s/p Cardizem gtt GI prophylaxis with PPI s/p PEG 01/09, asp precautions, severely leukopenic ? due to meds vs ? primary BM disease -resolving monitor counts immunofixation screen unremarkable transfuse to keep Hgb > 7 , s/p transfusion 01/13 previously evaluated by bioethics -> DNR/DNI status appropriate if not weanable in few days., consider transfer to LTAC for further management case discussed and evaluated by supervising physician Critical Care - Objective Last 24 Hour Vital Signs Date Time Temp Pulse Resp B/P (MAP) Pulse Ox O2 Delivery O2 Flow Rate FiO2 01/20/20 07:00 113 25 103/71 (82) 100 01/20/20 06:25 121 27 99/49 100 01/20/20 06:00 130 110/48 01/20/20 06:00 138 20 115/51 (72) 100 01/20/20 05:55 130 110/48 01/20/20 05:55 130 22 101/48 100 01/20/20 05:00 124 22 110/53 (72) 100 01/20/20 04:00 99.0 117 22 117/53 (74) 100 01/20/20 04:00 Mechanical Ventilator 01/20/20 04:00 100 01/20/20 04:00 119 01/20/20 03:00 120 25 118/61 (80) 100 01/20/20 02:38 111 27 100 01/20/20 02:00 106 33 101/51 (68) 96 01/20/20 01:00 117 30 107/63 (78) 100 01/20/20 00:11 123 108/73 01/20/20 00:00 100 01/20/20 00:00 123 108/78 01/20/20 00:00 Mechanical Ventilator 01/20/20 00:00 99.5 128 34 108/78 (88) 97 01/20/20 00:00 118 01/19/20 23:00 125 35 98/58 (71) 100 01/19/20 22:36 126 30 104/51 98 01/19/20 22:36 129 37 100 Mechanical Ventilator 100 126 37 100 01/19/20 22:06 120 30 109/57 99 01/19/20 22:00 118 32 109/57 (74) 99 01/19/20 21:00 108 36 121/64 (83) 99 01/19/20 20:55 99.9 01/19/20 20:00 100.5 107 34 119/65 (83) 100 01/19/20 20:00 Mechanical Ventilator 01/19/20 20:00 100 01/19/20 20:00 110 01/19/20 19:02 109 31 100 01/19/20 19:00 114 33 104/67 (79) 99 10/10/20 18:00 130 22 95/54 (68) 98 01/19/20 17:50 125 139/54 01/19/20 17:50 125 135/64 01/19/20 17:00 127 29 101/99 (100) 98 01/19/20 16:00 Mechanical Ventilator 01/19/20 16:00 120 32 149/77 (101) 96 01/19/20 16:00 119 01/19/20 16:00 100 01/19/20 15:30 116 28 129/70 94 01/19/20 15:09 112 30 100 01/19/20 15:00 98.4 119 28 129/70 (89) 98 01/19/20 14:59 96 30 151/95 94 01/19/20 14:00 109 33 137/67 (90) 99 01/19/20 13:00 122 28 131/68 (89) 99 01/19/20 12:00 110 01/19/20 12:00 Mechanical Ventilator 01/19/20 12:00 110 31 134/66 (88) 99 01/19/20 12:00 100 01/19/20 11:46 130 121/76 01/19/20 11:46 130 121/76 01/19/20 11:09 120 27 90 01/19/20 11:00 120 27 135/68 (90) 98 01/19/20 10:00 105 30 131/63 (85) Objective: CONDITION: critical General Appearance: morbidly obese , sedated, generalized anasarca ; on vent AC 600-18-100% PEEP 8 Lines, tubes and drains: LUE PICC , intact HEENT: normocephalic, atraumatic, anicteric, Neck: trach with Shiley # 8, secretions moderate amount, yellow color, thick consistency Respiratory/Chest: few scattered rhonchi , L chest tube with serosanguineous drainage, dressing C/D/I Cardiovascular/Chest: irregularly irregular - A fib . tachy at times , distant heart sounds, Abdomen: normal bowel sounds, non tender , obese, soft ; G tube with TF : Lockett Extremities: no calf tenderness, moderate edema - +3 BLE, R knee with large hematoma, edema, Skin Exam: warm/dry, multiple tattoos Neurologic: sedated Musculoskeletal: normal muscle bulk Accucheck: 136 Critical Care - Subjective ROS Limited/Unobtainable: Yes Interval Events: ABG better this am CXR not uploaded fevers last night currently afebrile CT with 45 cc serosanguineous drainage pleural fluid cx + E coli ESBL, GPC and yeast Condition: critical IV Access: PICC - LUE intaxt EKG Rhythm: Atrial Fibrillation FI02: 100 Vent Support Breath Rate: 18 Vent Support Mode: AC Vent Tidal Volume: 600 Sputum Amount: Moderate PEEP: 8.0 PIP: 48 Tube Feeding Amount: 40 I&O: Intake and Output 01/19/20 01/20/20 19:00 07:00 Intake Total 480 ml 2210.000 ml Output Total 955 ml 880 ml Balance -475 ml 1330.000 ml IV Total 1730.000 ml Tube Feeding 480 ml 480 ml Output Urine Total 935 ml 875 ml Chest Tube Drainage Total 20 ml 5 ml CXR: CXR 01/17 Tracheostomy. Low lung volumes. Again identified is complete opacification of the left thorax. Interval worsening airspace opacities throughout the right lung. Small to moderate right pleural effusion. Stable cardiomegaly. No clinically significant pneumothorax. Unchanged positioning of the left upper extremity PICC line. Colt Keen MD 01/20/202052: Critical Care - Asmt/Plan Assessment/Plan: Patient seen and examined with ASSET PROTECTION ASSISTANT and the above formulated assessment and plan. Time Spent (Minutes): 40 - cc Luz Bowen ASSET PROTECTION ASSISTANT Jan 20, 2020 09:30 Colt Keen MD Jan 20, 2020 20:53
[2020-01-20] MEDS ORDERED: Metoprolol Tartrate 5mg/5ml Inj IVP SCH ×2 (10:00→11:15)
--- NOTE | 2020-01-20 10:00 | NUR ---
NURSE NOTES: Orders received for metoprolol 5mg IVP received that can be repeated if needed after 5min. Addendum: 01/20/20 at 1951 by RAIN FELIPE RN Patient HR between 120-160 but mostly in 150's.
--- NOTE | 2020-01-20 10:17 | General Progress Note ---
Subjective ROS Limited/Unobtainable: Yes Allergies: Coded Allergies: ERYTHROMYCIN BASE (Verified Allergy, Severe, 12/12/19) HALOPERIDOL (Verified Allergy, Unknown, 12/12/19) VANCOMYCIN (Unverified Adverse Reaction, Intermediate, Shortness of Breath, 12/12/19) Objective Last 24 Hour Vital Signs Date Time Temp Pulse Resp B/P (MAP) Pulse Ox O2 Delivery O2 Flow Rate FiO2 01/20/20 07:00 113 25 103/71 (82) 100 01/20/20 06:25 121 27 99/49 100 01/20/20 06:00 130 110/48 01/20/20 06:00 138 20 115/51 (72) 100 01/20/20 05:55 130 110/48 01/20/20 05:55 130 22 101/48 100 01/20/20 05:00 124 22 110/53 (72) 100 01/20/20 04:00 99.0 117 22 117/53 (74) 100 01/20/20 04:00 Mechanical Ventilator 01/20/20 04:00 100 01/20/20 04:00 119 01/20/20 03:00 120 25 118/61 (80) 100 01/20/20 02:38 111 27 100 01/20/20 02:00 106 33 101/51 (68) 96 01/20/20 01:00 117 30 107/63 (78) 100 01/20/20 00:11 123 108/73 01/20/20 00:00 100 01/20/20 00:00 123 108/78 01/20/20 00:00 Mechanical Ventilator 01/20/20 00:00 99.5 128 34 108/78 (88) 97 01/20/20 00:00 118 01/19/20 23:00 125 35 98/58 (71) 100 01/19/20 22:36 126 30 104/51 98 01/19/20 22:36 129 37 100 Mechanical Ventilator 100 126 37 100 01/19/20 22:06 120 30 109/57 99 01/19/20 22:00 118 32 109/57 (74) 99 01/19/20 21:00 108 36 121/64 (83) 99 01/19/20 20:55 99.9 01/19/20 20:00 100.5 107 34 119/65 (83) 100 01/19/20 20:00 Mechanical Ventilator 01/19/20 20:00 100 01/19/20 20:00 110 01/19/20 19:02 109 31 100 01/19/20 19:00 114 33 104/67 (79) 99 01/19/20 18:00 130 22 95/54 (68) 98 01/19/20 17:50 125 139/54 01/19/20 17:50 125 135/64 01/19/20 17:00 127 29 101/99 (100) 98 01/19/20 16:00 Mechanical Ventilator 01/19/20 16:00 120 32 149/77 (101) 96 01/19/20 16:00 119 01/19/20 16:00 100 01/19/20 15:30 116 28 129/70 94 01/19/20 15:09 112 30 100 01/19/20 15:00 98.4 119 28 129/70 (89) 98 01/19/20 14:59 96 30 151/95 94 01/19/20 14:00 109 33 137/67 (90) 99 01/19/20 13:00 122 28 131/68 (89) 99 01/19/20 12:00 110 01/19/20 12:00 Mechanical Ventilator 01/19/20 12:00 110 31 134/66 (88) 99 01/19/20 12:00 100 01/19/20 11:46 130 121/76 01/19/20 11:46 130 121/76 01/19/20 11:09 120 27 90 01/19/20 11:00 120 27 135/68 (90) 98 Intake and Output 01/19/20 01/20/20 19:00 07:00 Intake Total 480 ml 2210.000 ml Output Total 955 ml 880 ml Balance -475 ml 1330.000 ml IV Total 1730.000 ml Tube Feeding 480 ml 480 ml Output Urine Total 935 ml 875 ml Chest Tube Drainage Total 20 ml 5 ml Laboratory Tests 01/20/20 07:30: Arterial Blood pH 7.251L, Arterial Blood Partial Pressure CO2 49.1H, Arterial Blood Partial Pressure O2 175.5H, Arterial Blood HCO3 21.1L, Arterial Blood Oxygen Saturation 98.9, Arterial Blood Base Excess -5.8L, Eugene Test Positive Height (Feet): 5 Height (Inches): 6.00 Weight (Pounds): 343 General Appearance: morbidly obese, other - trach vent Neck: normal alignment Cardiovascular: regularly irregular, tachycardia Respiratory/Chest: rhonchi - bilaterally Abdomen: non tender Edema: moderate edema Neurologic: unresponsive Assessment/Plan Problem List: (1) Schizophrenia ICD Codes: F20.9 - Schizophrenia, unspecified SNOMED: 39293930 (2) GERD (gastroesophageal reflux disease) ICD Codes: K21.9 - Gastro-esophageal reflux disease without esophagitis SNOMED: 700465268 (3) Lymphadema (4) Smoker ICD Codes: F17.200 - Nicotine dependence, unspecified, uncomplicated SNOMED: 06263174 (5) Atrial fibrillation with rapid ventricular response ICD Codes: I48.91 - Unspecified atrial fibrillation SNOMED: 759787411306589 (6) CKD (chronic kidney disease) stage 3, GFR 30-59 ml/min ICD Codes: N18.3 - Chronic kidney disease, stage 3 (moderate) SNOMED: 435467750 (7) NATALIE (acute kidney injury) ICD Codes: N17.9 - Acute kidney failure, unspecified SNOMED: 1809556, 07069365 (8) COPD (chronic obstructive pulmonary disease) ICD Codes: J44.9 - Chronic obstructive pulmonary disease, unspecified SNOMED: 51088732 (9) UGI bleed ICD Codes: K92.2 - Gastrointestinal hemorrhage, unspecified SNOMED: 96978386 (10) Dysphagia ICD Codes: R13.10 - Dysphagia, unspecified SNOMED: 66516743, 939708215 (11) UTI (urinary tract infection) ICD Codes: N39.0 - Urinary tract infection, site not specified SNOMED: 96671830 (12) ESBL (extended spectrum beta-lactamase) producing bacteria infection ICD Codes: A49.9 - Bacterial infection, unspecified; Z16.12 - Extended spectrum beta lactamase (ESBL) resistance SNOMED: 317587821 (13) Dehydration ICD Codes: E86.0 - Dehydration SNOMED: 38502677 (14) CHF exacerbation ICD Codes: I50.9 - Heart failure, unspecified SNOMED: 460871107, 72128088806765 (15) Acute respiratory failure ICD Codes: J96.00 - Acute respiratory failure, unspecified whether with hypoxia or hypercapnia SNOMED: 47837165 (16) COVID-19 ICD Codes: U07.1 - COVID-19 SNOMED: 331385296 (17) Pneumonia ICD Codes: J18.9 - Pneumonia, unspecified organism SNOMED: 402578132 Qualifiers: (18) Hematoma of lower leg ICD Codes: S80.10XA - Contusion of unspecified lower leg, initial encounter SNOMED: 986131233 (19) CKD (chronic kidney disease) stage 3, GFR 30-59 ml/min ICD Codes: N18.3 - Chronic kidney disease, stage 3 (moderate) SNOMED: 443953690 (20) Pancytopenia ICD Codes: D61.818 - Other pancytopenia SNOMED: 610626475 Status: stable Assessment/Plan: resp distress, icu, trach, vent, natalie on ckd,,now stable, I/O reviewed, hematoma RLE stop eliquis , lovenox now iv protonix, rx esbl and + vre uti,g+ cocci , remains high risk, d/w psych, ID, cardiology, ,covid neg prior positive this admission now neg, , grave prognosis, fungemia treated with micafungin likely will be unable to wean for a long time, agitated when tried to wean , ,all lab and orders reviewed , no active bleeding , low Hb to transfuse 01/08 preop, done, , reculture, d/w dr curran needs trach, done,Needs gastrostomy unable to sign, done Dr Curran thinks that she might be able to wean gradually after trach placed, febrile again and infiltrates, trach scheduled 01/08, done, pancytopenia stable may be from sepsis or meds(remdesivir, chlorpromazine, micafungin, linezolid), posssible primary BM disease, wbc and platelets a bit better now, to observe ,immunofixation ordered,negative, hypernatremia and free water gt,stop D5w iv , Na better restart lasix , increase 100 mg q 12 hr as +fluid balance, titrate sedatives , some distress and now on 100% FIO2, cxr complete opacification of the left thorax. Interval worsening airspace opacities throughout the right lung. pleural fluid esbl on meropoenam, cardizem +metoprolol , s/p thoracentesis c icu time 35 min eBnjamin Dumont MD Jan 20, 2020 10:17
--- NOTE | 2020-01-20 10:30 | NUR ---
NURSE NOTES: Reported fever to Dr. Dumont and informed him of Metoprolol about to be pushed. Okay to give. Med given. No new orders for fever.
[2020-01-20] MEDS: Midazolam 2mg/2ml Inj IVP PRN (11:30)
[2020-01-20] MEDS: Multivitamins W/Minerals 15 ML UDC GT SCH (11:31)
--- NOTE | 2020-01-20 12:00 | NUR ---
NURSE NOTES: Versed given as well as scheduled medications diltiazem and metoprolol through G tube.
--- NOTE | 2020-01-20 13:00 | NUR ---
NURSE NOTES: Second dose of metoprolol given and HR now improved to range of 100-110.
--- NOTE | 2020-01-20 16:00 | NUR ---
NURSE NOTES: Patient cleaned at this time. No s/sx of distress.
--- NOTE | 2020-01-20 17:41 | NUR ---
NURSE NOTES: Dr. Keen called and reported ABG and lactic acid.
--- NOTE | 2020-01-20 18:02 | Surgery Progress Note ---
Surgery Progress Note Subjective Procedure Performed left tube thoracotomy Additional Comments chest tube to water seal labs noted exam stable cxr AM Objective Last 24 Hour Vital Signs Date Time Temp Pulse Resp B/P (MAP) Pulse Ox O2 Delivery O2 Flow Rate FiO2 01/20/20 15:09 105 33 109/69 60 01/20/20 15:00 108 26 109/69 (82) 99 01/20/20 15:00 107 33 50 01/20/20 14:39 116 22 105/54 97 01/20/20 14:02 125 24 100 Mechanical Ventilator 60 120 30 60 01/20/20 14:00 105 18 96/64 (75) 100 01/20/20 13:00 112 31 104/57 (73) 100 01/20/20 12:22 133 107/61 01/20/20 12:02 147 01/20/20 12:00 99.7 138 28 111/83 (92) 100 01/20/20 12:00 75 01/20/20 12:00 Mechanical Ventilator 01/20/20 11:59 143 26 75 01/20/20 11:32 153 118/93 01/20/20 11:31 153 118/93 01/20/20 11:00 100.9 140 28 115/63 (80) 100 01/20/20 10:00 101.2 140 24 112/53 (72) 100 01/20/20 09:00 132 20 81/53 (62) 100 01/20/20 08:00 Mechanical Ventilator 01/20/20 08:00 100.0 120 23 110/54 (72) 100 01/20/20 08:00 100 01/20/20 07:34 125 24 100 Mechanical Ventilator 100 120 24 100 01/20/20 07:29 118 01/20/20 07:00 113 25 103/71 (82) 100 01/20/20 06:25 121 27 99/49 100 01/20/20 06:00 130 110/48 01/20/20 06:00 138 20 115/51 (72) 100 01/20/20 05:55 130 110/48 01/20/20 05:55 130 22 101/48 100 01/20/20 05:00 124 22 110/53 (72) 100 01/20/20 04:00 99.0 117 22 117/53 (74) 100 01/20/20 04:00 Mechanical Ventilator 01/20/20 04:00 100 01/20/20 04:00 119 01/20/20 03:00 120 25 118/61 (80) 100 01/20/20 02:38 111 27 100 01/20/20 02:00 106 33 101/51 (68) 96 01/20/20 01:00 117 30 107/63 (78) 100 01/20/20 00:11 123 108/73 01/20/20 00:00 100 01/20/20 00:00 123 108/78 01/20/20 00:00 Mechanical Ventilator 01/20/20 00:00 99.5 128 34 108/78 (88) 97 01/20/20 00:00 118 01/19/20 23:00 125 35 98/58 (71) 100 01/19/20 22:36 126 30 104/51 98 01/19/20 22:36 129 37 100 Mechanical Ventilator 100 126 37 100 01/19/20 22:06 120 30 109/57 99 01/19/20 22:00 118 32 109/57 (74) 99 01/19/20 21:00 108 36 121/64 (83) 99 01/19/20 20:55 99.9 01/19/20 20:00 100.5 107 34 119/65 (83) 100 01/19/20 20:00 Mechanical Ventilator 01/19/20 20:00 100 01/19/20 20:00 110 01/19/20 19:02 109 31 100 01/19/20 19:00 114 33 104/67 (79) 99 I&O Intake and Output 01/19/20 01/20/20 19:00 07:00 Intake Total 480 ml 2210.000 ml Output Total 955 ml 880 ml Balance -475 ml 1330.000 ml IV Total 1730.000 ml Tube Feeding 480 ml 480 ml Output Urine Total 935 ml 875 ml Chest Tube Drainage Total 20 ml 5 ml Dressing: saturated Cardiovascular: RSR Respiratory: decreased breath sounds Abdomen: soft, non-tender, present bowel sounds Extremities: edema, cyanosis, no tenderness, other Laboratory Tests Test 01/20/20 07:30 01/20/20 15:10 01/20/20 16:13 Arterial Blood pH 7.251 (7.350-7.450) 7.273 (7.350-7.450) Arterial Blood Partial Pressure CO2 49.1 mmHg (35.0-45.0) H 41.0 mmHg (35.0-45.0) Arterial Blood Partial Pressure O2 175.5 mmHg (75.0-100.0) H 89.3 mmHg (75.0-100.0) Arterial Blood HCO3 21.1 mmol/L (22.0-26.0) L 18.5 mmol/L (22.0-26.0) L Arterial Blood Oxygen Saturation 98.9 % (95-100) 95.2 % (95-100) Arterial Blood Base Excess -5.8 (-2-2) L -7.7 (-2-2) L Eugene Test Positive Positive Lactic Acid Level 2.10 mmol/L (0.4-2.0) H Plan Problems: (1) Urinary tract infection (2) CHF exacerbation (3) History of schizophrenia (4) Atrial fibrillation with RVR (5) Schizophrenia (6) GERD (gastroesophageal reflux disease) (7) Smoker (8) Atrial fibrillation with rapid ventricular response (9) Lymphadema (10) COPD (chronic obstructive pulmonary disease) (11) CKD (chronic kidney disease) stage 3, GFR 30-59 ml/min (12) NATALIE (acute kidney injury) (13) Dehydration (14) Dysphagia (15) UTI (urinary tract infection) (16) UGI bleed (17) ESBL (extended spectrum beta-lactamase) producing bacteria infection (18) Constipation (19) Lactic acidosis (20) Tinea cruris (21) Onychomycosis (22) Emesis (23) Essential hypertension (24) Anemia (25) Cough (26) Depression (27) Depression (28) Edema (29) Rash (30) Opiate dependence (31) Opiate dependence (32) Opiate dependence (33) Opiate dependence (34) Pyelonephritis (35) Sepsis (36) UTI (urinary tract infection) (37) Nausea and vomiting (38) Abdominal pain Assessment & Plan: [age]-year-old female obese white abdominal pain deep tissue injury identified limited mobility on HD. KUB noted tube in place continue meds feeds Does not seem obstructed We will monitor lines noted. plan change resume tube feeds labs okay FINDINGS: Lower thorax: Obscuration of the left costophrenic angle suggestive of pleural effusion. Intraperitoneal space: No free air. Gastrointestinal tract: Unremarkable. No dilation. Bones/joints: Unremarkable. Tubes, lines and devices: The nasogastric tube has the tip at the mid inferior aspect of the gastric body. Other findings: Nonspecific gas pattern. Single frontal view of the abdomen demonstrates tip of the enteric tube and distal side-port projecting over the stomach. Gas is identified within the nondistended large bowel. There is a paucity of small bowel gas seen. Partially visualized left pleural effusion. No other significant interval change. (39) Chest pain (40) Chest pain (41) Nausea (42) Obesity (43) Chronic ulcer of leg (44) Chronic ulcer of leg (45) Chronic ulcer of leg (46) ACS (acute coronary syndrome) (47) Acute chest pain (48) Encounter for dressing change or suture removal (49) Left leg cellulitis (50) Acute encephalopathy (51) Encounter for wound re-check (52) Intractable nausea and vomiting (53) Infection due to ESBL-producing Escherichia coli (54) Chronic venous stasis (55) Change of dressing (56) Change of dressing (57) Change of dressing (58) Change of dressing (59) Change of dressing (60) Change of dressing (61) Change of dressing (62) Change of dressing (63) ESBL urine (64) Lymphadema (65) Lymphedema (66) Lymphedema (67) Lymphedema (68) Lymphedema (69) Lymphedema (70) Lymphedema (71) Lymphedema (72) Lymphedema (73) Open wound of foot (74) Open wound of foot (75) cellulitis (76) chronic lymphedema (77) chronic lymphedema (78) chronic lymphedema (79) hypertension uncontrolled (80) hypertension uncontrolled (81) Intertrigo (82) Sciatica (83) Cellulitis (84) Schizophrenia (85) Chronic bronchitis (86) HTN (hypertension) (87) Venous stasis ulcers (88) Medication refill (89) Chest pain, atypical (90) BMI 45.0-49.9, adult (91) Lymphedema of both lower extremities (92) hypertension uncontrolled (93) hypertension uncontrolled (94) hypertension uncontrolled (95) tenia corpus (96) Deep tissue injury Assessment & Plan: Morbidly obese pt whom presented on admission with Pressure injuries, Edemae bilat lower extremities eschar to dorsal aspects of metatarsals. Pt is very demanding of staff and can be resistive to repositioning. DTPI noted to L Sacrum(L)5.5cm x (W)2.5cm. Base of Pressure Injury is Maroon and indurated with surrounding non-blanchable erythema DTPI R Sacrum(L)5.5cm x (W)2.3cm. Base of Pressure Injury is maroon with purpuric center that is fluctuant. Pt complained of tenderness when minimally palpated. Bilat lower extremities are edematous . Dry eschar noted to nail matrix and tip of L 1st metatarsal, Dorsal L 2nd metatarsal, R 2nd and R 4th metatarsals. Both heels are boggy with non-Blanchable erythema. blisters forming on Right lower extremity anterior tibia. not infected cellulitis / edema on b/l le stable cont abx Tx.Plan: Apply Moisture Barrier Paste to Sacrum R and L gluteal cheeks. Cover with Optifoam drsgs. Change every 3 days and prn. Apply Betadine to dry eschar metatarsals both feet Daily. Apply Cavilon Skin Barrier to both heels. Cover each heel with Optifoam drsgs. Change every 7days and prn. Reposition at least every 2hours or as tolerated. Off-load heels with pillow. right leg hematoma stable critically ill and edema on right leg has compromised dermis over the hematoma. will likely need debridement once improved (97) COVID-19 Assessment & Plan: ++ on vent weaning abx as per ID (98) Respiratory failure Assessment & Plan: not able to wean safely will plan for trach case discussed with medical team, pulm, icu. recommended to trach given medical condition. medically indicated and recommended. s/p trach 01/08 s/p trach more comfortable less agitated on vent weaning here is complete or near complete opacification of left hemithorax. There is increasing pleural fluid on the right. Interstitial and airspace disease on the right is unchanged. Tracheostomy is again demonstrated Impression: Complete or near complete opacification left hemithorax. This may indicate rapidly accumulating pleural effusion, versus atelectatic left lung. chest tube 01/17 left chest tube to water seal am cxr (99) Pneumonia Juan Manuel Buckner Jan 20, 2020 18:01
--- NOTE | 2020-01-20 18:14 | Infectious Diseases Prog Note ---
Assessment/Plan Assessment/Plan ASSESSMENT AND PLAN: 1. MDR acinetobacter pna - S-minocycline, I-colistin, polymyxin hx esbl e.coli uti/pyelonephritis, sepsis, leukocytosis, fevers mrsa and vre colonization, NATALEI, respiratory distress/failure Fungemia - + yeast in blood - s/p micafungin, surveillance blood cultures negative hx mrsa pna/acinetobacter pna hx VRE uti covid-19 infection right leg swelling and redness noted, ? cellulitis, ? infected hematoma, ? wound infection esbl empyema, + yeast/gram + also, s/p chest tube - bactrim, zyvox, micfungin, meropenem - s/p chest tube - s/p remdesivir, s/p dexamethasone - monitor labs and chest x-ray, monitor fevers - ? debridement right leg per surgery when patient stable - d/w surgery, no intervention at this time - d/w Naim - f/u on final fluid cultures - d/w RN 2. Chronic kidney failure, acute renal failure. 3. COPD. 4. Pulmonary followup. 5. Renal followup. 6. History of falls. 7. Atrial fibrillation. Cardiology followup. 8. Obesity. 9. Gait disorder. 10. Schizophrenia. 11. Homeless. 12. Allergic to erythromycin, haloperidol, and vancomycin. 13. Social history is negative. 14. Family history is noncontributory. 15. MAR is noted. 16. Case discussed with RN. 17. Continue treatment per Dr. Dumont and consultants. Subjective Constitutional: Reports: fever, other - trach, vent, no pressors HEENT: Reports: congestion Respiratory: Reports: shortness of breath Cardiovascular: Reports: other - no pressors Gastrointestinal/Abdominal: Denies: nausea, vomiting, diarrhea Genitourinary: Reports: other - + trivedi Neurologic: Reports: weakness Psychiatric: Reports: other - NA Skin: Denies: rash Hematologic: Denies: bleeding Musculoskeletal: Reports: other - NA Allergies: Coded Allergies: ERYTHROMYCIN BASE (Verified Allergy, Severe, 12/12/19) HALOPERIDOL (Verified Allergy, Unknown, 12/12/19) VANCOMYCIN (Unverified Adverse Reaction, Intermediate, Shortness of Breath, 12/12/19) Objective Last 24 Hour Vital Signs Date Time Temp Pulse Resp B/P (MAP) Pulse Ox O2 Delivery O2 Flow Rate FiO2 01/20/20 15:09 105 33 109/69 60 01/20/20 15:00 108 26 109/69 (82) 99 01/20/20 15:00 107 33 50 01/20/20 14:39 116 22 105/54 97 01/20/20 14:02 125 24 100 Mechanical Ventilator 60 120 30 60 01/20/20 14:00 105 18 96/64 (75) 100 01/20/20 13:00 112 31 104/57 (73) 100 01/20/20 12:22 133 107/61 01/20/20 12:02 147 01/20/20 12:00 99.7 138 28 111/83 (92) 100 01/20/20 12:00 75 01/20/20 12:00 Mechanical Ventilator 01/20/20 11:59 143 26 75 01/20/20 11:32 153 118/93 01/20/20 11:31 153 118/93 01/20/20 11:00 100.9 140 28 115/63 (80) 100 01/20/20 10:00 101.2 140 24 112/53 (72) 100 01/20/20 09:00 132 20 81/53 (62) 100 01/20/20 08:00 Mechanical Ventilator 01/20/20 08:00 100.0 120 23 110/54 (72) 100 01/20/20 08:00 100 01/20/20 07:34 125 24 100 Mechanical Ventilator 100 120 24 100 01/20/20 07:29 118 01/20/20 07:00 113 25 103/71 (82) 100 01/20/20 06:25 121 27 99/49 100 01/20/20 06:00 130 110/48 01/20/20 06:00 138 20 115/51 (72) 100 01/20/20 05:55 130 110/48 01/20/20 05:55 130 22 101/48 100 01/20/20 05:00 124 22 110/53 (72) 100 01/20/20 04:00 99.0 117 22 117/53 (74) 100 01/20/20 04:00 Mechanical Ventilator 01/20/20 04:00 100 01/20/20 04:00 119 01/20/20 03:00 120 25 118/61 (80) 100 01/20/20 02:38 111 27 100 01/20/20 02:00 106 33 101/51 (68) 96 01/20/20 01:00 117 30 107/63 (78) 100 01/20/20 00:11 123 108/73 01/20/20 00:00 100 01/20/20 00:00 123 108/78 01/20/20 00:00 Mechanical Ventilator 01/20/20 00:00 99.5 128 34 108/78 (88) 97 01/20/20 00:00 118 01/19/20 23:00 125 35 98/58 (71) 100 01/19/20 22:36 126 30 104/51 98 01/19/20 22:36 129 37 100 Mechanical Ventilator 100 126 37 100 01/19/20 22:06 120 30 109/57 99 01/19/20 22:00 118 32 109/57 (74) 99 01/19/20 21:00 108 36 121/64 (83) 99 01/19/20 20:55 99.9 01/19/20 20:00 100.5 107 34 119/65 (83) 100 01/19/20 20:00 Mechanical Ventilator 01/19/20 20:00 100 01/19/20 20:00 110 01/19/20 19:02 109 31 100 01/19/20 19:00 114 33 104/67 (79) 99 Height (Feet): 5 Height (Inches): 6.00 Weight (Pounds): 343 General Appearance: no acute distress, other - + trach and vent HEENT: normocephalic, atraumatic, anicteric, mucous membranes moist Respiratory/Chest: crackles/rales, rhonchi - bilaterally Cardiovascular: normal rate, regular rhythm, no gallop/murmur Abdomen: normal bowel sounds, soft, non tender, no organomegaly, non distended Genitourinary: other - + trivedi - urine slt cloudy Extremities: no cyanosis, other - right leg covered Skin: no rash Neurologic/Psychiatric: loan 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 There is bilateral interstitial and airspace disease is again demonstrated, probably unchanged allowing for differences in degree of inspiration. Impression: Unchanged, over one day, findings as above. Chest x-ray - 12/21/19 - Procedure: XRAY Chest 1v Indication: Shortness of breath Technique: One view of the chest Comparison: 12/19/2019 Findings: The heart is enlarged. Bilateral extensive infiltrates are again demonstrated, stable to slightly worse allowing for differences in exposure technique. There is suggestion of increasing pleural fluid on the left. Nasogas tric tube is again demonstrated. Impression: Stable to worsened bilateral extensive infiltrates, since exam of 2 days prior Increasing left pleural effusion Chest x-ray - 12/23/19 - IMPRESSION: 1. No significant interval change from the prior chest x-ray. 2. Persistent moderate left pleural effusion and mild right pleural effusion. 3. Pulmonary vascular congestion. 4. Persistent opacity in the left lung base, which may represent atelectasis versus pneumonia. Chest x-ray - 12/25/19 - Procedure: XRAY Chest 1v Procedure: XRAY Chest 1v Reason for study: Reason For Exam: SOB Comparison films: 12/24/2019. FINDINGS: The tracheal tube and NG tube remain in place. Vascular prominence and bilateral hazy alveolar densities are unchanged. Cardiomegaly and small effusions also unchanged. The bony thorax appear unremarkable. IMPRESSION: NO SIGNIFICANT CHANGE COMPARED TO PREVIOUS EXAM. 12/26/19 - Procedure: XRAY Chest 1v Procedure: XRAY Chest 1v Reason for study: Reason For Exam: SOB Comparison films: 12/25/2019. FINDINGS: Endotracheal tube and NG tube remain in place. Hazy bilateral alveolar densities are essentially unchanged given the difference in technique. Cardiomegaly and right effusion again noted. The bony thorax appear unremarkable. IMPRESSION: NO SIGNIFICANT CHANGE COMPARED TO PREVIOUS EXAM. Chest x-ray - 12/28/19 - Procedure: XRAY Chest 1v Indication: Reason For Exam: SOB Technique: Single AP view of the chest. Comparison: Chest radiograph dated 12/27/2019 Findings: Exam is again noted to be diagnostically limited due to underpenetration, patient rotation, and exclusion of part of the left hemithorax from the [id number]. Within these limitations: No significant change in appearance of visualized cardiomediastinal silhouette. Unchanged layering right pleural effusion with associated basilar airspace op acities. Likely retrocardiac consolidation, unchanged. No apical pneumothoraces. Unchanged enteric and endotracheal tubes. Unchanged left PICC. Chest x-ray - 12/30/19 - FINDINGS: Distal tip of ET tube is above devika. Distal tip of the enteric tube is in stomach. Stable left arm PICC line with distal tip likely in the left subclavian vein. Cardiac silhouette is within normal limits allowing for portable and rotated technique. Low lung volumes with elevated left hemidiaphragm. Again noted is a moderate right effusion with patchy infiltrates in the right mid to lower lung. Probable retrocardiac infiltrates. IMPRESSION: Little interval change in moderate right effusion and pneumonia/aspiration. Suspected retrocardiac infiltrate. The distal tip of the left arm PICC line is not well seen past the level of the left mid subclavian vein. [place] location is in the cavoatrial junction. Recommend advancement. <MYCVCSECTION> Chest x-ray - 01/04/20 - Procedure: XRAY Chest 1v Indication: Dyspnea Technique: One view of the chest Comparison: 01/02/2020 Findings: Bilateral interstitial and airspace congestion, right pleural effusion, cardiomegaly persists, unchanged. Tube and line positions are unchanged Impression: Unchanged, over one day, findings as above. Chest x-ray - 01/06/20 - IMPRESSION: 1. Endotracheal tube terminates in the region of the lower thoracic trachea, approximately 2.6 cm above the devika. Enteric tube is difficult to visualize distally. 2. Similar opacities predominantly in the mid and lower lungs which may represent combination of pleural effusions and atelectasis versus pneumonia versus edema. Chest x-ray - 01/07/20 - Procedure: XRAY Chest 1v Indication: Shortness of breath Technique: One view of the chest Comparison: 01/06/2020 Findings: Stable satisfactory positions of endotracheal and orogastric tubes. Mild interstitial congestion and hazy ankle opacities are again demonstrated bila terally. There appears to be a small amount of pleural fluid bilaterally, probably unchanged. Impression: Unchanged, over one day, findings as above. Chest x-ray - 01/10/20 - Procedure: XRAY Chest 1v Indication: There is a breath Technique: One view of the chest Comparison: 01/08/2020 Findings: Interim conversion of endotracheal tube to a tracheostomy, appearing well positioned. Orogastric tube remains. Bilateral interstitial and airspace infiltrates versus edema persists, unchanged. Small bilateral pleural effusions persist, unchanged. Impression: Interim tracheostomy placement. No radiographically evident complica tion Stable bilateral pleural and parenchymal disease Chest x-ray - 01/13/20 - FINDINGS/IMPRESSION: Midline tracheostomy tube. Left upper extremity PICC line terminates in the left brachycephalic vein, unchanged. Mild-moderate vascular congestion, which is mildly increased when compared to January 10, 2020. Moderate left pleural effusion, which has mildly increased when compared to January 10, 2020. No pneumothorax. Cardiomegaly. Calcified aorta. Chest x-ray - 01/16/20 - Procedure: XRAY Chest 1v Indication: Shortness of breath Technique: One view of the chest Comparison: 01/15/2020 Findings: Bilateral interstitial and airspace infiltrates versus edema appears slightly increased from the prior exam. Right pleural effusion appears slightly increased. Left pleural fluid probably present, smaller than the right, stable. The heart remains enlarged. Tracheostomy, left arm PICC remain. Impression: Slightly increased pulmonary infiltrates versus edema and right pleural effusion, over one day Chest x-ray - 01/20/20 - Procedure: XRAY Chest 1v INDICATION: status post tracheostomy. COMPARISON: Same day chest radiograph at 7:51 Findings/impression: Single portable frontal view demonstrates a tracheostomy. There are low lung volumes. Again identified is complete opacification of the left thorax. Interval worsening airspace opacities throughout the right lung. Small to moderate right pleural effusion. Stable cardiomegaly. No clinically significant pneumothorax. Unchanged positioning of the left upper extremity PICC line. Microbiology Date/Time Source Procedure Growth Status 01/16/20 15:25 Body Fluid AFB Specimen Processing Tissue - Final Resulted 01/16/20 15:25 Body Fluid Acid Fast Bacilli Smear - Final Resulted 01/16/20 15:25 Body Fluid Acid Fast Bacilli Culture Pending Resulted 01/15/20 05:33 Blood Blood Culture - Preliminary NO GROWTH AFTER 4 DAYS Resulted 01/15/20 01:20 Nasopharynx SARS-CoV-2 RdRp Gene Assay - Final Complete 01/11/20 04:20 Stool Clostridium difficile Toxin Assay - Final Complete 01/08/20 18:25 Indwelling Cath Urine Culture - Final NO GROWTH AFTER 48 HOURS Complete 12/12/19 21:00 Rectum - Final NO CARBAPENEM-RESISTANT ENTEROBACTERI... Complete Labs Test 01/18/20 04:00 01/18/20 09:05 01/19/20 03:45 01/19/20 07:28 White Blood Count 4.9 K/UL (4.8-10.8) 4.7 K/UL (4.8-10.8) Red Blood Count 2.83 M/UL (4.20-5.40) 2.48 M/UL (4.20-5.40) Hemoglobin 8.4 G/DL (12.0-16.0) 7.2 G/DL (12.0-16.0) Hematocrit 26.7 % (37.0-47.0) 23.1 % (37.0-47.0) Mean Corpuscular Volume 94 FL (80-99) 93 FL (80-99) Mean Corpuscular Hemoglobin 29.7 PG (27.0-31.0) 29.2 PG (27.0-31.0) Mean Corpuscular Hemoglobin Concent 31.5 G/DL (32.0-36.0) 31.4 G/DL (32.0-36.0) Red Cell Distribution Width 19.9 % (11.6-14.8) 18.9 % (11.6-14.8) Platelet Count 174 K/UL (150-450) 145 K/UL (150-450) Mean Platelet Volume 6.6 FL (6.5-10.1) 7.6 FL (6.5-10.1) Neutrophils (%) (Auto) 77.3 % (45.0-75.0) % (45.0-75.0) Lymphocytes (%) (Auto) 13.3 % (20.0-45.0) % (20.0-45.0) Monocytes (%) (Auto) 7.4 % (1.0-10.0) % (1.0-10.0) Eosinophils (%) (Auto) 0.9 % (0.0-3.0) % (0.0-3.0) Basophils (%) (Auto) 1.2 % (0.0-2.0) % (0.0-2.0) Sodium Level 150 MMOL/L (136-145) 144 MMOL/L (136-145) Potassium Level 4.5 MMOL/L (3.5-5.1) 4.1 MMOL/L (3.5-5.1) Chloride Level 119 MMOL/L (98-107) 112 MMOL/L (98-107) Carbon Dioxide Level 22 MMOL/L (21-32) 21 MMOL/L (21-32) Anion Gap 9 mmol/L (5-15) 11 mmol/L (5-15) Blood Urea Nitrogen 29 mg/dL (7-18) 27 mg/dL (7-18) Creatinine 1.5 MG/DL (0.55-1.30) 1.5 MG/DL (0.55-1.30) Estimat Glomerular Filtration Rate 34.7 mL/min (>60) 34.7 mL/min (>60) Glucose Level 154 MG/DL (74-106) 146 MG/DL (74-106) Calcium Level 8.5 MG/DL (8.5-10.1) 7.9 MG/DL (8.5-10.1) Phosphorus Level 2.6 MG/DL (2.5-4.9) Magnesium Level 2.8 MG/DL (1.8-2.4) Arterial Blood pH 7.338 (7.350-7.450) 7.292 (7.350-7.450) Arterial Blood Partial Pressure CO2 39.3 mmHg (35.0-45.0) 42.8 mmHg (35.0-45.0) Arterial Blood Partial Pressure O2 64.2 mmHg (75.0-100.0) 64.1 mmHg (75.0-100.0) Arterial Blood HCO3 20.6 mmol/L (22.0-26.0) 20.2 mmol/L (22.0-26.0) Arterial Blood Oxygen Saturation 89.6 % (95-100) 89.5 % (95-100) Arterial Blood Base Excess -4.8 (-2-2) -5.9 (-2-2) Eugene Test Positive Positive Differential Total Cells Counted 100 Neutrophils % (Manual) 78 % (45-75) Lymphocytes % (Manual) 13 % (20-45) Monocytes % (Manual) 1 % (1-10) Eosinophils % (Manual) 1 % (0-3) Basophils % (Manual) 0 % (0-2) Band Neutrophils 7 % (0-8) Nucleated Red Blood Cells 1 /100 WBC Platelet Estimate Decreased Platelet Morphology Normal Polychromasia 1+ Hypochromasia 1+ Anisocytosis 1+ Test 01/20/20 07:30 01/20/20 15:10 01/20/20 16:13 Arterial Blood pH 7.251 (7.350-7.450) 7.273 (7.350-7.450) Arterial Blood Partial Pressure CO2 49.1 mmHg (35.0-45.0) 41.0 mmHg (35.0-45.0) Arterial Blood Partial Pressure O2 175.5 mmHg (75.0-100.0) 89.3 mmHg (75.0-100.0) Arterial Blood HCO3 21.1 mmol/L (22.0-26.0) 18.5 mmol/L (22.0-26.0) Arterial Blood Oxygen Saturation 98.9 % (95-100) 95.2 % (95-100) Arterial Blood Base Excess -5.8 (-2-2) -7.7 (-2-2) Eugene Test Positive Positive Lactic Acid Level 2.10 mmol/L (0.4-2.0) Laboratory Tests Test 01/20/20 07:30 01/20/20 15:10 01/20/20 16:13 Arterial Blood pH 7.251 (7.350-7.450) 7.273 (7.350-7.450) Arterial Blood Partial Pressure CO2 49.1 mmHg (35.0-45.0) H 41.0 mmHg (35.0-45.0) Arterial Blood Partial Pressure O2 175.5 mmHg (75.0-100.0) H 89.3 mmHg (75.0-100.0) Arterial Blood HCO3 21.1 mmol/L (22.0-26.0) L 18.5 mmol/L (22.0-26.0) L Arterial Blood Oxygen Saturation 98.9 % (95-100) 95.2 % (95-100) Arterial Blood Base Excess -5.8 (-2-2) L -7.7 (-2-2) L Eugene Test Positive Positive Lactic Acid Level 2.10 mmol/L (0.4-2.0) H Current Medications Medications (Trade) Dose Ordered Sig/Shiraz Route PRN Reason Start Time Stop Time Status Last Admin Dose Admin Acetaminophen (Tylenol) 650 mg Q4H PRN GT Temp >100.5 01/12/20 10:00 02/11/20 09:59 01/19/20 20:25 Acetaminophen (Tylenol) 650 mg Q4H PRN GT Mild Pain (Pain Scale 1-3) 01/12/20 10:00 02/11/20 09:59 01/15/20 05:41 Acetazolamide (Diamox) 500 mg EVERY 12 HOURS GT 01/17/20 21:00 02/01/20 17:59 01/20/20 09:21 Acetylcysteine (Mucomyst) 200 mg Q6HRT HHN 01/19/20 13:30 04/18/20 13:29 01/20/20 13:52 Albuterol Sulfate (Proventil MDI) 2 puff Q4H PRN INH Shortness of Breath 12/24/19 10:30 03/23/20 10:29 01/12/20 09:44 Ascorbic Acid (Vitamin C) 500 mg BEDTIME GT 01/17/20 21:00 02/16/20 20:59 01/19/20 21:03 Bacitracin (Bacitracin 15gm tube) 1 applic EVERY 12 HOURS TOPIC 01/16/20 11:00 04/15/20 10:59 01/20/20 09:23 Chlorhexidine Gluconate (Jessie-Hex 2%) 1 applic DAILY@1999 TOPIC 12/24/19 20:00 03/23/20 19:59 01/19/20 20:17 Clotrimazole (Lotrimin) 1 applic EVERY 12 HOURS TOPIC 01/05/20 09:00 03/12/20 08:59 01/20/20 09:23 Diltiazem HCl (Cardizem Tab) 90 mg EVERY 6 HOURS GT 01/18/20 12:00 02/17/20 00:44 01/20/20 11:31 Docusate Sodium (Colace) 100 mg EVERY 12 HOURS GT 01/17/20 09:00 01/24/20 08:59 01/20/20 09:21 Enoxaparin Sodium (Lovenox) 60 mg DAILY SUBQ 01/13/20 12:00 04/12/20 11:59 01/18/20 09:37 Furosemide (Lasix) 100 mg EVERY 12 HOURS IV 01/20/20 21:00 02/19/20 20:59 Ipratropium [place] (Atrovent) 500 mcg Q6H PRN HHN Shortness of Breath 01/19/20 13:30 01/24/20 13:29 Linezolid 300 ml @ 300 mls/hr EVERY 12 HOURS IVPB 01/19/20 21:00 01/26/20 20:59 01/20/20 09:20 Lorazepam (Ativan) 1 mg EVERY 8 HOURS GT 01/14/20 18:00 01/21/20 17:59 01/20/20 14:39 Magnesium Hydroxide (Mom) 30 ml HSPRN PRN NG Constipation 12/22/19 15:15 01/21/20 15:14 01/02/20 22:20 Meropenem 1 gm/ Sodium Chloride 100 ml @ 200 mls/hr Q12H IVPB 01/19/20 16:00 01/24/20 15:59 01/20/20 16:30 Metoclopramide HCl (Reglan) 5 mg Q6H IVP 01/05/20 09:15 02/04/20 09:14 01/20/20 14:34 Metoprolol Tartrate (Lopressor) 50 mg Q6HR GT 01/17/20 12:00 04/12/20 17:59 01/20/20 11:32 Micafungin Sodium 100 mg/Sodium Chloride 100 ml @ 100 mls/hr Q24H IVPB 01/20/20 18:15 01/27/20 18:14 UNV Midazolam HCl (Versed 2mg/2ml vial) 2 mg Q1H PRN IVP Agitation 01/18/20 20:00 01/25/20 19:59 01/19/20 17:49 Morphine Sulfate (Morphine Sulfate) 2 mg Q4H PRN IVP Moderate Pain (Pain Scale 4-6) 01/14/20 12:00 01/21/20 11:59 01/14/20 17:54 Morphine Sulfate (Morphine Sulfate) 4 mg Q4H PRN IVP Severe Pain (Pain Scale 7-10) 01/14/20 12:00 01/21/20 11:59 01/18/20 20:59 Multivitamins (Multivitamins W/ Minerals 15ml Liquid) 15 ml Q24H GT 01/18/20 11:00 02/17/20 10:59 01/20/20 11:31 Pantoprazole (Protonix) 40 mg EVERY 12 HOURS IVP 01/01/20 21:00 01/31/20 20:59 01/20/20 09:22 Polyethylene Glycol (Miralax) 17 gm BEDTIME GT 01/17/20 21:00 01/28/20 20:59 Potassium Chloride (K-Dur) 40 meq TWICE A DAY GT 01/19/20 10:15 04/18/20 10:14 01/20/20 09:22 Quetiapine Fumarate (SEROqueL) 150 mg EVERY 8 HOURS GT 01/17/20 14:00 02/25/20 21:59 01/20/20 14:35 Trimethoprim/ Sulfamethoxazole 15 ml/Dextrose 565 ml @ 376.667 mls/hr [id number] BACTRIM IV 01/17/20 20:00 01/24/20 19:59 01/20/20 14:35 Aliesha Coronel MD Jan 20, 2020 18:14
--- NOTE | 2020-01-20 19:30 | NUR ---
NURSE NOTES: Received report from NOEL Edmond. Pt is resting on the bed and agitated and able to open the eyes to voice. Trach to Vent dependent ad setting with Ac:18, T: 600, P:8, FiO2 50% with SaO2 96-97% noted. Provided oral care and suction. Pt has G-tube and on running with Glucerna 1.5@ 40cc/hr and no residual noted. Pt has [place] cath and patent and drainage well. Pt has Lt. upper arm PICC line and dressing is clean and dry. Dressing is clean and dry on wound area. On P-200 mattress for wound management. Noted generalized edema. Pt has bilateral soft wrist restraint. checked comfort and circulation. Pt has Lt. chest tube and drain with water seal and dressing is intact. No sign of subcutaneous emphysema and crepitus. Pt has bilateral soft restraint and checked comfort and circulation. Placed fall precaution. Will continue to care plan.
--- NOTE | 2020-01-20 19:34 | NUR ---
NURSE HAND-OFF REPORT: Latest Vital Signs: Temperature 99.8 , Pulse 125 , B/P 127 /73 , Respiratory Rate 33 , O2 SAT 99 , Mechanical Ventilator, O2 Flow Rate . Vital Sign Comment: Stable EKG Rhythm: Atrial Fibrillation Rhythm change?: N Notified?: N -MD Gaviota UNDERWOOD Response: Latest Abreu Fall Score: 75 Fall Risk: High Risk Safety Measures: Call light Within Reach, Bed Alarm Zone 1, Side Rails Side Rails x3, Bed position Low and Locked. Fall Precautions: Yellow Socks Yellow Gown Door Sign Patient Fall Education Report given to Ignacia COHEN. Endorsed that chest tube is now to water seal. Plan of care endorsed.
[2020-01-20] MEDS: Ipratropium 0.02% Inh Soln 2.5ml UD HHN PRN (19:43)
[2020-01-20] MEDS: Dyna-Hex 2% Top Sol 2oz TOPIC SCH (20:13)
[2020-01-20] MEDS: Miralax 17gm pkt GT SCH (21:39)
[2020-01-20] MEDS: Ascorbic Acid 500mg tab GT SCH (21:39)
--- NOTE | 2020-01-20 22:00 | NUR ---
NURSE NOTES: Pt is sleeping on the bed and no sign of acute distress noted. Tolerated well with current Vent setting. Dr. Meek visited and assessed Pt. Given suction and oral care. Changed position. Will continue to monitor any change of condition.
[2020-01-20] MEDS: Acetaminophen 650mg/20.3ml GT PRN (22:50)
--- NOTE | 2020-01-20 22:50 | NUR ---
NURSE NOTES: Noted BT : 100.9F by axillary. Keep cooling measure. Given Tylenol as ordered. on monitor technician with A-fib. Will continue to monitor any change of condition.
[2020-01-21] VITALS (45 sets, daily range): BP systolic 103–129; BP diastolic 48–99
[2020-01-21] MEDS: dilTIAZem HCl 90mg tab GT SCH ×2 (00:07→05:31)
[2020-01-21] MEDS: Metoprolol Tartrate 50mg tab GT SCH ×3 (00:08→20:20)
--- NOTE | 2020-01-21 01:10 | Cardiology Progress Note ---
Subjective DATE OF SERVICE: Jan 20, 2020 Doing poorly - remains in ICU in critical condition with guarded prognosis. Now s/p left thoracotomy/chest tube for opacified left lung. Remains on vent support - s/p trach. BP range remaining low normal range. Remains COVID19 positive. Monitor: AFIb with better rate control; now on oral cardizem and BBlocker. Venous Duplex: negative for DVT Renal fxn and free water deficit worsening Objective Last 24 Hour Vital Signs Date Time Temp Pulse Resp B/P (MAP) Pulse Ox O2 Delivery O2 Flow Rate FiO2 01/21/20 01:00 142 31 103/77 (86) 97 01/21/20 00:30 143 29 107/52 (70) 97 01/21/20 00:08 134 115/96 01/21/20 00:07 138 115/96 01/21/20 00:00 99.5 139 31 115/96 (102) 99 01/21/20 00:00 137 01/21/20 00:00 50 01/21/20 00:00 Mechanical Ventilator 01/20/20 23:59 134 29 50 01/20/20 23:20 100.3 01/20/20 23:00 126 34 113/54 (73) 95 01/20/20 22:45 124 32 98/61 (73) 96 01/20/20 22:30 117 33 107/55 (72) 95 01/20/20 22:11 108 30 100/59 97 01/20/20 22:00 108 30 100/59 (73) 96 01/20/20 21:41 101 20 109/60 98 01/20/20 21:00 92 21 101/53 (69) 99 01/20/20 20:00 85 01/20/20 20:00 99.9 87 20 101/41 (61) 97 01/20/20 20:00 Mechanical Ventilator 01/20/20 20:00 50 01/20/20 19:34 84 22 100 Mechanical Ventilator 50 105 25 50 01/20/20 19:00 91 31 96/47 (63) 97 01/20/20 18:29 125 127/73 01/20/20 18:28 134 127/73 01/20/20 18:00 117 33 103/45 (64) 99 01/20/20 17:00 113 32 119/58 (78) 98 01/20/20 16:10 107 01/20/20 16:00 99.8 104 33 98/49 (65) 98 01/20/20 16:00 Mechanical Ventilator 01/20/20 16:00 75 01/20/20 15:09 105 33 109/69 60 01/20/20 15:00 108 26 109/69 (82) 99 01/20/20 15:00 107 33 50 01/20/20 14:39 116 22 105/54 97 01/20/20 14:02 125 24 100 Mechanical Ventilator 60 120 30 60 01/20/20 14:00 105 18 96/64 (75) 100 01/20/20 13:00 112 31 104/57 (73) 100 01/20/20 12:22 133 107/61 01/20/20 12:02 147 01/20/20 12:00 99.7 138 28 111/83 (92) 100 01/20/20 12:00 75 01/20/20 12:00 Mechanical Ventilator 01/20/20 11:59 143 26 75 01/20/20 11:32 153 118/93 01/20/20 11:31 153 118/93 01/20/20 11:00 100.9 140 28 115/63 (80) 100 01/20/20 10:00 101.2 140 24 112/53 (72) 100 01/20/20 09:00 132 20 81/53 (62) 100 01/20/20 08:00 Mechanical Ventilator 01/20/20 08:00 100.0 120 23 110/54 (72) 100 01/20/20 08:00 100 01/20/20 07:34 125 24 100 Mechanical Ventilator 100 120 24 100 01/20/20 07:29 118 01/20/20 07:00 113 25 103/71 (82) 100 01/20/20 06:25 121 27 99/49 100 01/20/20 06:00 130 110/48 01/20/20 06:00 138 20 115/51 (72) 100 01/20/20 05:55 130 110/48 01/20/20 05:55 130 22 101/48 100 01/20/20 05:00 124 22 110/53 (72) 100 01/20/20 04:00 99.0 117 22 117/53 (74) 100 01/20/20 04:00 Mechanical Ventilator 01/20/20 04:00 100 01/20/20 04:00 119 01/20/20 03:00 120 25 118/61 (80) 100 01/20/20 02:38 111 27 100 01/20/20 02:00 106 33 101/51 (68) 96 ROS: unchanged from 12/12/19 HEENT: Orally intubated, Mechanically Ventilated, Thin secretions ET Tube, other - NGtube RHYTHM: NSR, ST LUNGS: diminished breath sounds, right-sided rhonchi CARDIAC: normal S1 and S2, irregularly irregular ABDOMEN: other - obese EXTREMITIES: moderate edema - mostly non pitting, other - hematoma right leg Laboratory Tests Test 01/20/20 07:30 01/20/20 15:10 01/20/20 16:13 Arterial Blood pH 7.251 (7.350-7.450) 7.273 (7.350-7.450) Arterial Blood Partial Pressure CO2 49.1 mmHg (35.0-45.0) H 41.0 mmHg (35.0-45.0) Arterial Blood Partial Pressure O2 175.5 mmHg (75.0-100.0) H 89.3 mmHg (75.0-100.0) Arterial Blood HCO3 21.1 mmol/L (22.0-26.0) L 18.5 mmol/L (22.0-26.0) L Arterial Blood Oxygen Saturation 98.9 % (95-100) 95.2 % (95-100) Arterial Blood Base Excess -5.8 (-2-2) L -7.7 (-2-2) L Uegene Test Positive Positive Lactic Acid Level 2.10 mmol/L (0.4-2.0) H Assessment/Plan Assessment/Plan CRITICAL AND GUARDED Left lung opacification - s/p chest tube placement 01/18/20. Acute respiratory failure - s/p trach Acute on chronic respiratory acidosis AFiB with labile heart rates, and now persistent RVR. CHF, ac/chr diastolic BLE edema Sepsis with shock obesity COPD with bronchospasm Acute renal failure - worsening Pleural effusion GI bleeding Anemia - multifactorial, now worse Covid 19 PNA Hypokalemia Dehydration/hypernatremia worsened Hypertension/HHD with labile BP - now stable range. Vent support Chest tube management Titrate beta yves and oral diltiazem doses. PRBC transfusion for hb below 7gm/dl Monitor acid/base parameters. Antimicrobials Lovenox added for cardioembolic prophyl Continued cardiac nurse specialist Potassium and add'l free water suppl to continue. Agree with DNR Jerome Meek MD Jan 21, 2020 01:10
[2020-01-21] MEDS: Acetylcysteine 20% Soln 4ml HHN SCH ×4 (01:46→19:18)
--- NOTE | 2020-01-21 02:00 | NUR ---
NURSE NOTES: Given suction and mouth care. Changed position. Tolerated well with current Vent setting. G- tube feeding. V/S is stable. Will continue to monitor any change of condition.
[2020-01-21] MEDS: D5W IV SCH ×4 (02:02→21:02)
[2020-01-21] MEDS: BACTRIM IV SCH ×4 (02:02→21:02)
[2020-01-21] MEDS: Metoclopramide 10mg/2ml Inj IVP SCH ×4 (03:23→21:02)
--- NOTE | 2020-01-21 04:00 | NUR ---
NURSE NOTES: Given bed bath. Cleaned Pt and applied lotion and cream. Changed wound dressing. Enhanced dressing on chest tube area. Given suction and oral care. Noted BT: 99.5F. Keep cooling measure. Changed position. Placed fall precaution. Will continue to monitor any change of condition.
[2020-01-21] MEDS: LORazepam 1mg tab GT SCH ×2 (05:32→14:18)
[2020-01-21] MEDS: Acetaminophen 650mg/20.3ml GT PRN ×2 (05:58→11:38)
--- NOTE | 2020-01-21 05:58 | NUR ---
NURSE NOTES: Noted BT: 101F. Flush with ice water. Keep cooling measure. Applied ice pack. Suction and oral care provided. changed position. Will continue to monitor any change of condition.
[2020-01-21 05:59] LABS: HEMATOCRIT 24.2 % (37.0-47.0); HEMOGLOBIN 7.5 G/DL (12.0-16.0); MEAN CORPUSCULAR VOLUME 93 FL (80-99); PLATELET COUNT 140 K/UL (150-450); RED CELL DISTRIBUTION WIDTH 18.8 % (11.6-14.8); WHITE BLOOD COUNT 7.6 K/UL (4.8-10.8)
--- NOTE | 2020-01-21 06:18 | Diagnostic Imaging Report ---
EXAM: XR Chest, 1 View CLINICAL HISTORY: SOB TECHNIQUE: Frontal view of the chest. COMPARISON: 1 day prior FINDINGS: Lungs: There is near-complete opacification of the left hemithorax which is unchanged. This is likely secondary to left pleural effusion and left lung atelectasis.. There is improving mild right pleural effusion. There is improving right lower lobe infiltrate. Pleural space: See above. Heart: Unremarkable. No cardiomegaly. Mediastinum: Unremarkable. Bones/joints: Unremarkable. Tubes, lines and devices: There is a left-sided chest tube in unchanged position. There is a tracheostomy tube in good position IMPRESSION: 1. Unchanged complete opacification of left hemithorax. 2. Improving right basilar infiltrate and right pleural effusion
--- NOTE | 2020-01-21 06:19 | Diagnostic Imaging Report ---
EXAM: XR Chest, 1 View CLINICAL HISTORY: SOB TECHNIQUE: Frontal view of the chest. COMPARISON: Chest radiograph January 19, 2020 FINDINGS/IMPRESSION: Midline tracheostomy tube. SIGNIFICANT INTERVAL DECREASE IN THE SIZE OF THE PREVIOUSLY NOTED SEVERE LEFT PLEURAL EFFUSION, NOW MILD-MODERATE IN DEGREE. Small right pleural effusion. Mild vascular congestion. No pneumothorax. Left upper extremity PICC line terminates in the brachial cephalic vein. Cardiomegaly.
--- NOTE | 2020-01-21 06:19 | Diagnostic Imaging Report ---
EXAM: XR Chest, 1 View CLINICAL HISTORY: ABN CHST TECHNIQUE: Frontal view of the chest. COMPARISON: 01/19/20 at 0813 hours. FINDINGS: Once again, there is complete opacification of the left hemithorax. Suspect large pleural effusion with associated atelectasis. There is a small-moderate right pleural effusion. Both of these appear stable in the short interval. Left-sided chest tube remains in place as does a tracheostomy. No pneumothorax. Left arm PICC again noted projecting over the upper mediastinum. This is difficult to further localize on this rotated view. IMPRESSION: Stable examination with redemonstrated complete opacification of the left hemithorax, presumably large pleural effusion with associated collapse. Stable small-moderate right effusion.
[2020-01-21 06:20] LABS: CALCIUM 7.9 MG/DL (8.5-10.1); POTASSIUM 5.8 MMOL/L (3.5-5.1)
--- NOTE | 2020-01-21 06:20 | Diagnostic Imaging Report ---
EXAM: XR Chest, 1 View CLINICAL HISTORY: F/U TECHNIQUE: Frontal view of the chest. COMPARISON: Chest radiography 01/20/20 performed at 9:07 AM hours. FINDINGS: See Impression. IMPRESSION: 1. No change in the short interval. 2. Redemonstration of bilateral pleural effusions with adjacent passive atelectasis, vascular congestion as well, and interstitial and alveolar disease bilaterally. 3. Stable left-sided chest tube and tracheostomy tube. Left PICC is unchanged from before.
[2020-01-21 06:34] LABS: ALANINE AMINOTRANSFERASE < 6 U/L (12-78); ALBUMIN 1.4 G/DL (3.4-5.0); ALKALINE PHOSPHATASE 74 U/L (46-116); ASPARTATE AMINO TRANSFERASE 14 U/L (15-37); BILIRUBIN,DIRECT 0.3 MG/DL (0.0-0.3); BILIRUBIN,TOTAL 0.4 MG/DL (0.2-1.0)
--- NOTE | 2020-01-21 07:18 | NUR ---
NURSE HAND-OFF REPORT: Latest Vital Signs: Temperature 100.5 , Pulse 145 , B/P 128 /58 , Respiratory Rate 32 , O2 SAT 97 , Mechanical Ventilator, O2 Flow Rate . EKG Rhythm: Atrial Fibrillation Rhythm change?: N Latest Abreu Fall Score: 75 Fall Risk: High Risk Safety Measures: Call light Within Reach, Bed Alarm Zone 1, Side Rails Side Rails x3, Bed position Low and Locked. Fall Precautions: Yellow Socks Yellow Gown Door Sign Patient Fall Education Report given to NOEL Thompson. Pt is resting on the bed. Keep cooling measure.
--- NOTE | 2020-01-21 07:28 | NUR ---
NURSE NOTES: Received patient from Ignacia COHEN. Patient is awake, alert and oriented x1, A. Fib on the heart monitor, HR 140-150. Receiving oxygen via Shiley 8, vent settings: AC 18, TV 600, FiO2 50%, PEEP 5. IV site is Left Upper arm PICC, patent and intact. G-tube is intact and receiving Glucerna 1.5 at 40cc/hr. Lockett catheter is intact and draining. Bed is locked, placed in lowest position, side rails up x3, bed alarm on, head of bed elevated. Will continue to monitor.
--- NOTE | 2020-01-21 07:51 | NUR ---
NURSE NOTES: Patient seen and assessed by Dr. Dumont.
--- NOTE | 2020-01-21 08:01 | General Progress Note ---
Subjective ROS Limited/Unobtainable: Yes Allergies: Coded Allergies: ERYTHROMYCIN BASE (Verified Allergy, Severe, 12/12/19) HALOPERIDOL (Verified Allergy, Unknown, 12/12/19) VANCOMYCIN (Unverified Adverse Reaction, Intermediate, Shortness of Breath, 12/12/19) Objective Last 24 Hour Vital Signs Date Time Temp Pulse Resp B/P (MAP) Pulse Ox O2 Delivery O2 Flow Rate FiO2 01/21/20 07:29 145 30 99 Mechanical Ventilator 50 145 30 50 01/21/20 07:00 145 32 128/58 (81) 97 01/21/20 06:28 100.5 01/21/20 06:02 150 30 126/68 98 01/21/20 06:00 155 33 126/68 (87) 96 01/21/20 05:32 150 34 114/79 98 01/21/20 05:31 150 114/79 01/21/20 05:00 155 31 127/99 (108) 97 01/21/20 04:00 136 01/21/20 04:00 99.5 139 29 120/91 (101) 98 01/21/20 04:00 50 01/21/20 04:00 Mechanical Ventilator 01/21/20 03:54 146 29 50 01/21/20 03:00 120 30 129/66 (87) 95 01/21/20 02:00 116 27 118/54 (75) 98 01/21/20 01:47 109 22 99 Mechanical Ventilator 50 120 22 50 01/21/20 01:00 142 31 103/77 (86) 97 01/21/20 00:30 143 29 107/52 (70) 97 01/21/20 00:08 134 115/96 01/21/20 00:07 138 115/96 01/21/20 00:00 99.5 139 31 115/96 (102) 99 01/21/20 00:00 137 01/21/20 00:00 50 01/21/20 00:00 Mechanical Ventilator 01/20/20 23:59 134 29 50 01/20/20 23:20 100.3 01/20/20 23:00 126 34 113/54 (73) 95 01/20/20 22:45 124 32 98/61 (73) 96 01/20/20 22:30 117 33 107/55 (72) 95 01/20/20 22:11 108 30 100/59 97 01/20/20 22:00 108 30 100/59 (73) 96 01/20/20 21:41 101 20 109/60 98 01/20/20 21:00 92 21 101/53 (69) 99 01/20/20 20:00 85 01/20/20 20:00 99.9 87 20 101/41 (61) 97 01/20/20 20:00 Mechanical Ventilator 01/20/20 20:00 50 01/20/20 19:34 84 22 100 Mechanical Ventilator 50 105 25 50 01/20/20 19:00 91 31 96/47 (63) 97 01/20/20 18:29 125 127/73 01/20/20 18:28 134 127/73 01/20/20 18:00 117 33 103/45 (64) 99 01/20/20 17:00 113 32 119/58 (78) 98 01/20/20 16:10 107 01/20/20 16:00 99.8 104 33 98/49 (65) 98 01/20/20 16:00 Mechanical Ventilator 01/20/20 16:00 75 01/20/20 15:09 105 33 109/69 60 01/20/20 15:00 108 26 109/69 (82) 99 01/20/20 15:00 107 33 50 01/20/20 14:39 116 22 105/54 97 01/20/20 14:02 125 24 100 Mechanical Ventilator 60 120 30 60 01/20/20 14:00 105 18 96/64 (75) 100 01/20/20 13:00 112 31 104/57 (73) 100 01/20/20 12:22 133 107/61 01/20/20 12:02 147 01/20/20 12:00 99.7 138 28 111/83 (92) 100 01/20/20 12:00 75 01/20/20 12:00 Mechanical Ventilator 01/20/20 11:59 143 26 75 01/20/20 11:32 153 118/93 01/20/20 11:31 153 118/93 01/20/20 11:00 100.9 140 28 115/63 (80) 100 01/20/20 10:00 101.2 140 24 112/53 (72) 100 01/20/20 09:00 132 20 81/53 (62) 100 01/20/20 08:00 Mechanical Ventilator 01/20/20 08:00 100.0 120 23 110/54 (72) 100 01/20/20 08:00 100 Intake and Output 01/20/20 01/21/20 19:00 07:00 Intake Total 2010.000 ml 2110.000 ml Output Total 1025 ml 1505 ml Balance 985.000 ml 605.000 ml IV Total 1530.000 ml 1630.000 ml Tube Feeding 480 ml 480 ml Output Urine Total 1025 ml 1500 ml Chest Tube Drainage Total 5 ml Laboratory Tests 01/20/20 15:10: Lactic Acid Level 2.10H 01/20/20 16:13: Arterial Blood pH 7.273L, Arterial Blood Partial Pressure CO2 41.0, Arterial Blood Partial Pressure O2 89.3, Arterial Blood HCO3 18.5L, Arterial Blood Oxygen Saturation 95.2, Arterial Blood Base Excess -7.7L, Eugene Test Positive 01/21/20 05:19: Lactic Acid Level 2.40H, White Blood Count 7.6, Red Blood Count 2.60L, Hemoglobin 7.5L, Hematocrit 24.2L, Mean Corpuscular Volume 93, Mean Corpuscular Hemoglobin 28.9, Mean Corpuscular Hemoglobin Concent 31.1L, Red Cell Distribution Width 18.8H, Platelet Count 140L, Mean Platelet Volume 7.0, Neutrophils (%) (Auto) , Lymphocytes (%) (Auto) , Monocytes (%) (Auto) , Eosinophils (%) (Auto) , Basophils (%) (Auto) , Neutrophils % (Manual) [Pending], Lymphocytes % (Manual) [Pending], Platelet Estimate [Pending], Platelet Morphology [Pending], Sodium Level 139, Potassium Level 5.8H, Chloride Level 108H, Carbon Dioxide Level 23, Anion Gap 8, Blood Urea Nitrogen 38H, Creatinine 2.0H, Estimat Glomerular Filtration Rate 24.9, Glucose Level 125H, Calcium Level 7.9L, Total Bilirubin 0.4, Direct Bilirubin 0.3, Aspartate Amino Transf (AST/SGOT) 14L, Alanine Aminotransferase (ALT/SGPT) < 6L, Alkaline Phosphatase 74, Total Protein 5.4L, Albumin 1.4L Height (Feet): 5 Height (Inches): 6.00 Weight (Pounds): 343 General Appearance: morbidly obese, other - vent, trach Neck: normal inspection Cardiovascular: regularly irregular, tachycardia Respiratory/Chest: rhonchi - bilaterally Abdomen: non tender Edema: moderate edema Neurologic: unresponsive Skin: other - hematoma rle Assessment/Plan Problem List: (1) Schizophrenia ICD Codes: F20.9 - Schizophrenia, unspecified SNOMED: 50496476 (2) GERD (gastroesophageal reflux disease) ICD Codes: K21.9 - Gastro-esophageal reflux disease without esophagitis SNOMED: 708126092 (3) Lymphadema (4) Smoker ICD Codes: F17.200 - Nicotine dependence, unspecified, uncomplicated SNOMED: 78674903 (5) Atrial fibrillation with rapid ventricular response ICD Codes: I48.91 - Unspecified atrial fibrillation SNOMED: 527128723402006 (6) CKD (chronic kidney disease) stage 3, GFR 30-59 ml/min ICD Codes: N18.3 - Chronic kidney disease, stage 3 (moderate) SNOMED: 027925104 (7) NATALIE (acute kidney injury) ICD Codes: N17.9 - Acute kidney failure, unspecified SNOMED: 1488757, 47357076 (8) COPD (chronic obstructive pulmonary disease) ICD Codes: J44.9 - Chronic obstructive pulmonary disease, unspecified SNOMED: 69041260 (9) UGI bleed ICD Codes: K92.2 - Gastrointestinal hemorrhage, unspecified SNOMED: 61835377 (10) Dysphagia ICD Codes: R13.10 - Dysphagia, unspecified SNOMED: 20108969, 935944299 (11) UTI (urinary tract infection) ICD Codes: N39.0 - Urinary tract infection, site not specified SNOMED: 09459335 (12) ESBL (extended spectrum beta-lactamase) producing bacteria infection ICD Codes: A49.9 - Bacterial infection, unspecified; Z16.12 - Extended spectrum beta lactamase (ESBL) resistance SNOMED: 663070507 (13) Dehydration ICD Codes: E86.0 - Dehydration SNOMED: 38464213 (14) CHF exacerbation ICD Codes: I50.9 - Heart failure, unspecified SNOMED: 362505380, 14851602533797 (15) Acute respiratory failure ICD Codes: J96.00 - Acute respiratory failure, unspecified whether with hypoxia or hypercapnia SNOMED: 58811178 (16) COVID-19 ICD Codes: U07.1 - COVID-19 SNOMED: 714837460 (17) Pneumonia ICD Codes: J18.9 - Pneumonia, unspecified organism SNOMED: 865715490 Qualifiers: (18) Hematoma of lower leg ICD Codes: S80.10XA - Contusion of unspecified lower leg, initial encounter SNOMED: 975909197 (19) CKD (chronic kidney disease) stage 3, GFR 30-59 ml/min ICD Codes: N18.3 - Chronic kidney disease, stage 3 (moderate) SNOMED: 812257116 (20) Pancytopenia ICD Codes: D61.818 - Other pancytopenia SNOMED: 378055534 Status: stable Assessment/Plan: resp distress, icu, trach, vent, natalie on ckd,,now stable, I/O reviewed, he matoma RLE stop eliquis , lovenox now iv protonix, rx esbl and + vre uti,g+ cocci , remains high risk, d/w psych, ID, cardiology, ,covid neg prior positive this admission now neg, , grave prognosis, fungemia treated with micafungin likely will be unable to wean for a long time, agitated when tried to wean , ,all lab and orders reviewed , no active bleeding , low Hb tolerates, pancytopenia stable may be from sepsis or meds(remdesivir, chlorpromazine, micafungin, linezolid), posssible primary BM disease, wbc and platelets a bit better now, to observe ,immunofixation ordered,negative, hypernatremia and free water gt, , Na better restart lasix , increase 100 mg q 8 hr as +fluid balance, titrate sedatives , some distress and now on 100% FIO2, cxr complete opacification of the left thorax. afib rate 130+ restart cardizem drip, high K hold kcl will improve with lasix Interval worsening airspace opacities throughout the right lung. pleural fluid esbl on meropoenam, cardizem +metoprolol , s/p thoracentesis c icu time 40 min Benjamin Dumotn MD Jan 21, 2020 08:00
[2020-01-21] MEDS: Pantoprazole Inj IVP SCH ×2 (08:11→20:18)
[2020-01-21] MEDS: Docusate 100mg/10ml Liq GT SCH ×2 (08:11→20:18)
[2020-01-21] MEDS: Enoxaparin 60mg Inj SUBQ SCH (08:13)
[2020-01-21] MEDS: Bacitracin Oint 15gm Tube TOPIC SCH ×2 (08:14→20:21)
[2020-01-21] MEDS: dilTIAZem Premix 125mg/125ml 125 ML IVPB SCH ×2 (09:15→18:15)
--- NOTE | 2020-01-21 10:06 | NUR ---
NURSE NOTES: Medications given as prescribed, K-Dur discontinued by Dr. Dumont due to elevated Potassium levels. Oral care provided, turned and repositioned patient. Cardizem drip initiated at 0915 at 2.5ml/hr, titrated up based on protocol to 10mls/hr, current heart rate is 100-110.
--- NOTE | 2020-01-21 10:10 | General Progress Note ---
Subjective ROS Limited/Unobtainable: No Allergies: Coded Allergies: ERYTHROMYCIN BASE (Verified Allergy, Severe, 12/12/19) HALOPERIDOL (Verified Allergy, Unknown, 12/12/19) VANCOMYCIN (Unverified Adverse Reaction, Intermediate, Shortness of Breath, 12/12/19) Objective Last 24 Hour Vital Signs Date Time Temp Pulse Resp B/P (MAP) Pulse Ox O2 Delivery O2 Flow Rate FiO2 01/21/20 09:30 106 30 117/54 (75) 97 01/21/20 09:15 106 30 104/67 (79) 97 01/21/20 09:00 99.8 111 31 108/57 (74) 96 01/21/20 08:45 120 31 110/51 (70) 96 01/21/20 08:12 145 128/58 01/21/20 08:00 Mechanical Ventilator 01/21/20 08:00 152 29 126/75 (92) 99 01/21/20 08:00 50 01/21/20 07:52 149 01/21/20 07:29 145 30 99 Mechanical Ventilator 50 145 30 50 01/21/20 07:00 145 32 128/58 (81) 97 01/21/20 06:28 100.5 01/21/20 06:02 150 30 126/68 98 01/21/20 06:00 155 33 126/68 (87) 96 01/21/20 05:32 150 34 114/79 98 01/21/20 05:31 150 114/79 01/21/20 05:00 155 31 127/99 (108) 97 01/21/20 04:00 136 01/21/20 04:00 99.5 139 29 120/91 (101) 98 01/21/20 04:00 50 01/21/20 04:00 Mechanical Ventilator 01/21/20 03:54 146 29 50 01/21/20 03:00 120 30 129/66 (87) 95 01/21/20 02:00 116 27 118/54 (75) 98 01/21/20 01:47 109 22 99 Mechanical Ventilator 50 120 22 50 01/21/20 01:00 142 31 103/77 (86) 97 01/21/20 00:30 143 29 107/52 (70) 97 01/21/20 00:08 134 115/96 01/21/20 00:07 138 115/96 01/21/20 00:00 99.5 139 31 115/96 (102) 99 01/21/20 00:00 137 01/21/20 00:00 50 01/21/20 00:00 Mechanical Ventilator 01/20/20 23:59 134 29 50 01/20/20 23:20 100.3 01/20/20 23:00 126 34 113/54 (73) 95 01/20/20 22:45 124 32 98/61 (73) 96 01/20/20 22:30 117 33 107/55 (72) 95 01/20/20 22:11 108 30 100/59 97 01/20/20 22:00 108 30 100/59 (73) 96 01/20/20 21:41 101 20 109/60 98 01/20/20 21:00 92 21 101/53 (69) 99 01/20/20 20:00 85 01/20/20 20:00 99.9 87 20 101/41 (61) 97 01/20/20 20:00 Mechanical Ventilator 01/20/20 20:00 50 01/20/20 19:34 84 22 100 Mechanical Ventilator 50 105 25 50 01/20/20 19:00 91 31 96/47 (63) 97 01/20/20 18:29 125 127/73 01/20/20 18:28 134 127/73 01/20/20 18:00 117 33 103/45 (64) 99 01/20/20 17:00 113 32 119/58 (78) 98 01/20/20 16:10 107 01/20/20 16:00 99.8 104 33 98/49 (65) 98 01/20/20 16:00 Mechanical Ventilator 01/20/20 16:00 75 01/20/20 15:09 105 33 109/69 60 01/20/20 15:00 108 26 109/69 (82) 99 01/20/20 15:00 107 33 50 01/20/20 14:39 116 22 105/54 97 01/20/20 14:02 125 24 100 Mechanical Ventilator 60 120 30 60 01/20/20 14:00 105 18 96/64 (75) 100 01/20/20 13:00 112 31 104/57 (73) 100 01/20/20 12:22 133 107/61 01/20/20 12:02 147 01/20/20 12:00 99.7 138 28 111/83 (92) 100 01/20/20 12:00 75 01/20/20 12:00 Mechanical Ventilator 01/20/20 11:59 143 26 75 01/20/20 11:32 153 118/93 01/20/20 11:31 153 118/93 01/20/20 11:00 100.9 140 28 115/63 (80) 100 Intake and Output 01/20/20 01/21/20 19:00 07:00 Intake Total 2010.000 ml 2110.000 ml Output Total 1025 ml 1505 ml Balance 985.000 ml 605.000 ml IV Total 1530.000 ml 1630.000 ml Tube Feeding 480 ml 480 ml Output Urine Total 1025 ml 1500 ml Chest Tube Drainage Total 5 ml Laboratory Tests 01/20/20 15:10: Lactic Acid Level 2.10H 01/20/20 16:13: Arterial Blood pH 7.273L, Arterial Blood Partial Pressure CO2 41.0, Arterial Blood Partial Pressure O2 89.3, Arterial Blood HCO3 18.5L, Arterial Blood Oxygen Saturation 95.2, Arterial Blood Base Excess -7.7L, Eugene Test Positive 01/21/20 05:19: Lactic Acid Level 2.40H, White Blood Count 7.6, Red Blood Count 2.60L, Hemo globin 7.5L, Hematocrit 24.2L, Mean Corpuscular Volume 93, Mean Corpuscular Hemoglobin 28.9, Mean Corpuscular Hemoglobin Concent 31.1L, Red Cell Distribution Width 18.8H, Platelet Count 140L, Mean Platelet Volume 7.0, Neutrophils (%) (Auto) , Lymphocytes (%) (Auto) , Monocytes (%) (Auto) , Eosinophils (%) (Auto) , Basophils (%) (Auto) , Differential Total Cells Counted 100, Neutrophils % (Manual) 76H, Lymphocytes % (Manual) 14L, Monocytes % (Manual) 4, Eosinophils % (Manual) 0, Basophils % (Manual) 0, Band Neutrophils 6, Nucleated Red Blood Cells 1, Platelet Estimate DecreasedL, Platelet Morphology Normal, Hypochromasia 1+, Anisocytosis 1+, Sodium Level 139, Potassium Level 5.8H, Chloride Level 108H, Carbon Dioxide Level 23, Anion Gap 8, Blood Urea Nitrogen 38H, Creatinine 2.0H, Estimat Glomerular Filtration Rate 24.9, Glucose Level 125H, Calcium Level 7.9L, Total Bilirubin 0.4, Direct Bilirubin 0.3, Aspartate Amino Transf (AST/SGOT) 14L, Alanine Aminotransferase (ALT/SGPT) < 6L, Alkaline Phosphatase 74, Total Protein 5.4L, Albumin 1.4L 01/21/20 08:28: Arterial Blood pH 7.315L, Arterial Blood Partial Pressure CO2 37.2, Arterial Blood Partial Pressure O2 85.7, Arterial Blood HCO3 18.7L, Arterial Blood Oxygen Saturation 95.3, Arterial Blood Base Excess -6.9L, Eugene Test Positive Height (Feet): 5 Height (Inches): 6.00 Weight (Pounds): 343 General Appearance: no apparent distress EENT: normal ENT inspection Neck: supple Cardiovascular: normal rate Respiratory/Chest: decreased breath sounds Abdomen: normal bowel sounds, non tender, soft Extremities: non-tender Assessment/Plan Problem List: (1) CKD (chronic kidney disease) stage 3, GFR 30-59 ml/min ICD Codes: N18.3 - Chronic kidney disease, stage 3 (moderate) SNOMED: 617276283 (2) COPD (chronic obstructive pulmonary disease) ICD Codes: J44.9 - Chronic obstructive pulmonary disease, unspecified SNOMED: 14659206 (3) Smoker ICD Codes: F17.200 - Nicotine dependence, unspecified, uncomplicated SNOMED: 89636963 (4) GERD (gastroesophageal reflux disease) ICD Codes: K21.9 - Gastro-esophageal reflux disease without esophagitis SNOMED: 807682561 (5) Atrial fibrillation with RVR ICD Codes: I48.91 - Unspecified atrial fibrillation SNOMED: 737985858626434 Status: stable Assessment/Plan: pepcid fu H&H monitor labs bowel regimen fu cardiology recs icu care ppi cbc in am s/p Trach and PEG GTF monitor for residuals Mervin Victoria MD Jan 21, 2020 10:10
--- NOTE | 2020-01-21 10:49 | NUR ---
RD ASSESSMENT & RECOMMENDATIONS SEE CARE ACTIVITY FOR COMPLETE ASSESSMENT DAILY ESTIMATED NEEDS: Needs based on Obesity, Cardiac, DM, NATALIE, Critical Care/ 80.5kg abw 22-25kg/IBW (59kg) kcals/kg 9281-9518 total kcals 1-2 g protein/kg 80-161 g total protein 20-25 mL/kg 2865-3959 total fluid mLs NUTRITION DIAGNOSIS: 21) Class III Obesity R/T lifestyle factors? excessive energy intake as evidenced by pt w/ BMI >50, @ 245% IBW. 2) Altered nutrition related lab values R/T diabetes, altered lipid metabolism, cardiac hx, NATALIE as evidenced by A1C of 7.1, elev triglyceride 239-> wnl, elev BNP 4671->2682, elev creat (1.7->4.3 -> 2.0, elev BUN (92 -> 38 trend down), elev K (5.4, 5.2 -> wnl->5.3-> wnl->5.8, Kdur dc'ed), 3) Swallowing difficulty R/T decreased cognitive fxn, respiratory status as evidenced by s/p NGT insertion (12/17), s/p worsening respiratory status, Covid-19 postive, orally intubated (12/22), s/p trach placement (01/08), S/p PEG placement. CURRENT TF:Glucerna 1.5 @ 40ml/hr x 24 hrs ENTERAL NUTRITION RECOMMENDATIONS: Glucerna 1.5 @ 40ml/hr x 24 hrs to provide 960ml, 1440kcal, 79g prot, 729ml free water * Maintain current TF: meets 100% est kcal/prot needs * HOB over 30 degrees/ water flush per MD ADDITIONAL RECOMMENDATIONS: 1) Calibrated bedscale wt: fluctuating daily wts 2) Monitor renal fxn and lytes: creat stable 1.7-2.0 -> monitor K (elev 01/20, Kdur dc'ed) 3) Monitor BGs closely w/ Decadron, now off. 4) Feed at goal w/ hemodynamic stability -off presso r support 5) Wound healing: Cont vit C, add Armand BID .
--- NOTE | 2020-01-21 10:52 | Pulmonolgy Critical Care Note ---
Luz Bowen PARLIAMENTARY LIBRARIAN 01/21/20 1052: Critical Care - Asmt/Plan Assessment/Plan: ASSESSMENT acute hypoxemic hypercapnic resp failure, requiring intubation 12/22 failure to wean s/p trach 01/08 COVID 19 PNA ( last test NGT) sepsis fungemia empyema s/p L thoracotomy 01/17 UTI with E coli ESBL UTI VRE possible aspiration PNA - s/p treatment Moderate R pleural effusion s/p tap COPD Atrial fibrillation with RVR CHF Acute renal failure on CKD Severe anemia dysphagia, s/p PEG 01/08 Thrombocytopenia Status post ground fall Tobacco dependency Morbid obesity probable GARY R knee edema and hematoma, possible cellulitis Hyper Na due to free water deficit PLAN OF CARE s/p trach, prior not tolerated weaning trials; developed tachycardia /A fib with RVR back on Cardizem gtt , weaning trial on hold s/p tap 01/15 -500 ml pleural fluid pleural fl cx 01/15 E coli ESBL, GPC and yeast , glucose low -> c/w empyema abx as per ID recs -> now Meropenem, Linezolid , Micafungin, Bactrim s/p L thoracotomy 01/[address] in, monitor output -only [address] to water seal, CXR pending for this am ABG stable this am FiO2 down to 50% CT chest pending Mucomyst added to HHN repeated COVID 19 01/14 and 01/17 NGT s/p steroids IV ( started 12/23) continue for total of 10 days till 01/02 s/p Remdesivir (started 12/24 ), dc 12/30 initial diagnoses with COVID 19 at [facility] 11/29, was not hypoxic and not intubated, was not treated with Remdesivivr , only received empiric abx for PNA DVT prophylaxis with Lovenox on diuresis with Lasix, monitor volumes closely creat remains stable consider d/c Diamox afib rate control - s/p Cardizem gtt GI prophylaxis with PPI s/p PEG 01/09, asp precautions, severely leukopenic ? due to meds vs ? primary BM disease -resolving monitor counts immunofixation screen unremarkable transfuse to keep Hgb > 7 , s/p transfusion 01/13 previously evaluated by bioethics -> DNR/DNI status appropriate if not weanable in few days., consider transfer to LTAC for further management case discussed and evaluated by supervising physician Critical Care - Objective Last 24 Hour Vital Signs Date Time Temp Pulse Resp B/P (MAP) Pulse Ox O2 Delivery O2 Flow Rate FiO2 01/21/20 10:40 111 27 50 01/21/20 10:00 109 32 120/65 (83) 98 01/21/20 09:45 109 28 116/73 (87) 97 01/21/20 09:30 106 30 117/54 (75) 97 01/21/20 09:15 106 30 104/67 (79) 97 01/21/20 09:00 99.8 111 31 108/57 (74) 96 01/21/20 08:45 120 31 110/51 (70) 96 01/21/20 08:12 145 128/58 01/21/20 08:00 Mechanical Ventilator 01/21/20 08:00 152 29 126/75 (92) 99 01/21/20 08:00 50 01/21/20 07:52 149 01/21/20 07:29 145 30 99 Mechanical Ventilator 50 145 30 50 01/21/20 07:00 145 32 128/58 (81) 97 01/21/20 06:28 100.5 01/21/20 06:02 150 30 126/68 98 01/21/20 06:00 155 33 126/68 (87) 96 01/21/20 05:32 150 34 114/79 98 01/21/20 05:31 150 114/79 01/21/20 05:00 155 31 127/99 (108) 97 01/21/20 04:00 136 01/21/20 04:00 99.5 139 29 120/91 (101) 98 01/21/20 04:00 50 01/21/20 04:00 Mechanical Ventilator 01/21/20 03:54 146 29 50 01/21/20 03:00 120 30 129/66 (87) 95 01/21/20 02:00 116 27 118/54 (75) 98 01/21/20 01:47 109 22 99 Mechanical Ventilator 50 120 22 50 01/21/20 01:00 142 31 103/77 (86) 97 01/21/20 00:30 143 29 107/52 (70) 97 01/21/20 00:08 134 115/96 01/21/20 00:07 138 115/96 01/21/20 00:00 99.5 139 31 115/96 (102) 99 01/21/20 00:00 137 01/21/20 00:00 50 01/21/20 00:00 Mechanical Ventilator 01/20/20 23:59 134 29 50 01/20/20 23:20 100.3 01/20/20 23:00 126 34 113/54 (73) 95 01/20/20 22:45 124 32 98/61 (73) 96 01/20/20 22:30 117 33 107/55 (72) 95 01/20/20 22:11 108 30 100/59 97 01/20/20 22:00 108 30 100/59 (73) 96 01/20/20 21:41 101 20 109/60 98 01/20/20 21:00 92 21 101/53 (69) 99 01/20/20 20:00 85 01/20/20 20:00 99.9 87 20 101/41 (61) 97 01/20/20 20:00 Mechanical Ventilator 01/20/20 20:00 50 01/20/20 19:34 84 22 100 Mechanical Ventilator 50 105 25 50 01/20/20 19:00 91 31 96/47 (63) 97 01/20/20 18:29 125 127/73 01/20/20 18:28 134 127/73 01/20/20 18:00 117 33 103/45 (64) 99 01/20/20 17:00 113 32 119/58 (78) 98 01/20/20 16:10 107 01/20/20 16:00 99.8 104 33 98/49 (65) 98 01/20/20 16:00 Mechanical Ventilator 01/20/20 16:00 75 01/20/20 15:09 105 33 109/69 60 01/20/20 15:00 108 26 109/69 (82) 99 01/20/20 15:00 107 33 50 01/20/20 14:39 116 22 105/54 97 01/20/20 14:02 125 24 100 Mechanical Ventilator 60 120 30 60 01/20/20 14:00 105 18 96/64 (75) 100 01/20/20 13:00 112 31 104/57 (73) 100 01/20/20 12:22 133 107/61 01/20/20 12:02 147 01/20/20 12:00 99.7 138 28 111/83 (92) 100 01/20/20 12:00 75 01/20/20 12:00 Mechanical Ventilator 01/20/20 11:59 143 26 75 01/20/20 11:32 153 118/93 01/20/20 11:31 153 118/93 01/20/20 11:00 100.9 140 28 115/63 (80) 100 Objective: CONDITION: critical General Appearance: morbidly obese , sedated, generalized anasarca ; on vent AC 600-18-50 % PEEP 8 Lines, tubes and drains: LUE PICC , intact HEENT: normocephalic, atraumatic, anicteric, Neck: trach with Shiley # 8, secretions moderate amount, yellow color, thick consistency Respiratory/Chest: few scattered rhonchi , L chest tube with serosanguineous drainage to water seal; dressing C/D/I Cardiovascular/Chest: irregularly irregular - A fib , tachy , distant heart sounds, Abdomen: normal bowel sounds, non tender , obese, soft ; G tube with TF : Lockett Extremities: no calf tenderness, moderate edema - +3 BLE, R knee with large h ematoma, edema, Skin Exam: warm/dry, multiple tattoos Neurologic: sedated Musculoskeletal: normal muscle bulk Accucheck: 136 Critical Care - Subjective ROS Limited/Unobtainable: Yes Interval Events: fevers, ABG better this am now on 50% FiO2 CT to water seal now CXR for this am pending pancultured again and abx regimen optimized again by ID specialsit Condition: critical, grave IV Access: PICC - LUE PICC intact EKG Rhythm: Atrial Fibrillation - with RVR FI02: 50 Vent Support Breath Rate: 18 Vent Support Mode: AC Vent Tidal Volume: 600 Sputum Amount: Small PEEP: 8.0 PIP: 37 Tube Feeding Amount: 40 I&O: Intake and Output 01/20/20 01/21/20 19:00 07:00 Intake Total 2010.000 ml 2110.000 ml Output Total 1025 ml 1505 ml Balance 985.000 ml 605.000 ml IV Total 1530.000 ml 1630.000 ml Tube Feeding 480 ml 480 ml Output Urine Total 1025 ml 1500 ml Chest Tube Drainage Total 5 ml CXR: CXR 01/19 Re-demonstration of bilateral pleural effusions with adjacent passive atelectasis, vascular congestion as well, and interstitial and alveolar disease bilaterally. Stable left-sided chest tube and tracheostomy tube. Left PICC is unchanged from before. Colt Keen MD 01/21/20 1118: Critical Care - Asmt/Plan Assessment/Plan: Patient seen and examined with PARLIAMENTARY LIBRARIAN and agree with the above formulated assessment and plan. Time Spent (Minutes): 40 - cc Luz Bowen NP Jan 21, 2020 10:52 Colt Keen MD Jan 21, 2020 11:18
[2020-01-21] MEDS: Multivitamins W/Minerals 15 ML UDC GT SCH (11:24)
--- NOTE | 2020-01-21 11:43 | NUR ---
NURSE NOTES: Patient's temperature read 101.2 degrees Fahrenheit, gave prescribed Tylenol and placed ice packs on patient.
--- NOTE | 2020-01-21 12:03 | Diagnostic Imaging Report ---
Indication: Shortness of breath Technique: One view of the chest Comparison: 01/20/2020 Findings: Tracheostomy, left arm PICC, left chest tube, moderate right pleural effusion versus thickening, right greater than left interstitial and airspace opacities, cardiomegaly are all unchanged. Impression: Unchanged, over one day, findings as above.
--- NOTE | 2020-01-21 13:45 | Surgery Progress Note ---
Surgery Progress Note Subjective Procedure Performed left tube thoracotomy Additional Comments chest tube to water seal no n/v on support ill appearing Objective Last 24 Hour Vital Signs Date Time Temp Pulse Resp B/P (MAP) Pulse Ox O2 Delivery O2 Flow Rate FiO2 01/21/20 13:00 103 28 108/48 (68) 96 01/21/20 12:08 100.3 01/21/20 12:00 Mechanical Ventilator 01/21/20 12:00 50 01/21/20 12:00 101.2 105 28 109/51 (70) 97 01/21/20 11:45 111 29 108/56 (73) 97 01/21/20 11:30 117 29 108/56 (73) 97 01/21/20 11:25 113 01/21/20 11:15 115 28 112/50 (70) 96 01/21/20 11:00 117 27 112/57 (75) 97 01/21/20 10:40 111 27 50 01/21/20 10:00 109 32 120/65 (83) 98 01/21/20 09:45 109 28 116/73 (87) 97 01/21/20 09:30 106 30 117/54 (75) 97 01/21/20 09:15 106 30 104/67 (79) 97 01/21/20 09:00 99.8 111 31 108/57 (74) 96 01/21/20 08:45 120 31 110/51 (70) 96 01/21/20 08:12 145 128/58 01/21/20 08:00 Mechanical Ventilator 01/21/20 08:00 152 29 126/75 (92) 99 01/21/20 08:00 50 01/21/20 07:52 149 01/21/20 07:29 145 30 99 Mechanical Ventilator 50 145 30 50 01/21/20 07:00 145 32 128/58 (81) 97 01/21/20 06:28 100.5 01/21/20 06:02 150 30 126/68 98 01/21/20 06:00 155 33 126/68 (87) 96 01/21/20 05:32 150 34 114/79 98 01/21/20 05:31 150 114/79 01/21/20 05:00 155 31 127/99 (108) 97 01/21/20 04:00 136 01/21/20 04:00 99.5 139 29 120/91 (101) 98 01/21/20 04:00 50 01/21/20 04:00 Mechanical Ventilator 01/21/20 03:54 146 29 50 01/21/20 03:00 120 30 129/66 (87) 95 01/21/20 02:00 116 27 118/54 (75) 98 01/21/20 01:47 109 22 99 Mechanical Ventilator 50 120 22 50 01/21/20 01:00 142 31 103/77 (86) 97 01/21/20 00:30 143 29 107/52 (70) 97 01/21/20 00:08 134 115/96 01/21/20 00:07 138 115/96 01/21/20 00:00 99.5 139 31 115/96 (102) 99 01/21/20 00:00 137 01/21/20 00:00 50 01/21/20 00:00 Mechanical Ventilator 01/20/20 23:59 134 29 50 01/20/20 23:20 100.3 01/20/20 23:00 126 34 113/54 (73) 95 01/20/20 22:45 124 32 98/61 (73) 96 01/20/20 22:30 117 33 107/55 (72) 95 01/20/20 22:11 108 30 100/59 97 01/20/20 22:00 108 30 100/59 (73) 96 01/20/20 21:41 101 20 109/60 98 01/20/20 21:00 92 21 101/53 (69) 99 01/20/20 20:00 85 01/20/20 20:00 99.9 87 20 101/41 (61) 97 01/20/20 20:00 Mechanical Ventilator 01/20/20 20:00 50 01/20/20 19:34 84 22 100 Mechanical Ventilator 50 105 25 50 01/20/20 19:00 91 31 96/47 (63) 97 01/20/20 18:29 125 127/73 01/20/20 18:28 134 127/73 01/20/20 18:00 117 33 103/45 (64) 99 01/20/20 17:00 113 32 119/58 (78) 98 01/20/20 16:10 107 01/20/20 16:00 99.8 104 33 98/49 (65) 98 01/20/20 16:00 Mechanical Ventilator 01/20/20 16:00 75 01/20/20 15:09 105 33 109/69 60 01/20/20 15:00 108 26 109/69 (82) 99 01/20/20 15:00 107 33 50 01/20/20 14:39 116 22 105/54 97 01/20/20 14:02 125 24 100 Mechanical Ventilator 60 120 30 60 01/20/20 14:00 105 18 96/64 (75) 100 I&O Intake and Output 01/20/20 01/21/20 19:00 07:00 Intake Total 2010.000 ml 2110.000 ml Output Total 1025 ml 1505 ml Balance 985.000 ml 605.000 ml IV Total 1530.000 ml 1630.000 ml Tube Feeding 480 ml 480 ml Output Urine Total 1025 ml 1500 ml Chest Tube Drainage Total 5 ml Dressing: saturated Cardiovascular: RSR Respiratory: decreased breath sounds Abdomen: soft, present bowel sounds, non-distended Extremities: edema, cyanosis Laboratory Tests Test 01/20/20 15:10 01/20/20 16:13 01/21/20 05:19 01/21/20 08:28 Lactic Acid Level 2.10 mmol/L (0.4-2.0) H 2.40 mmol/L (0.4-2.0) H Arterial Blood pH 7.273 (7.350-7.450) 7.315 (7.350-7.450) Arterial Blood Partial Pressure CO2 41.0 mmHg (35.0-45.0) 37.2 mmHg (35.0-45.0) Arterial Blood Partial Pressure O2 89.3 mmHg (75.0-100.0) 85.7 mmHg (75.0-100.0) Arterial Blood HCO3 18.5 mmol/L (22.0-26.0) L 18.7 mmol/L (22.0-26.0) L Arterial Blood Oxygen Saturation 95.2 % (95-100) 95.3 % (95-100) Arterial Blood Base Excess -7.7 (-2-2) L -6.9 (-2-2) L Eugene Test Positive Positive White Blood Count 7.6 K/UL (4.8-10.8) Red Blood Count 2.60 M/UL (4.20-5.40) L Hemoglobin 7.5 G/DL (12.0-16.0) L Hematocrit 24.2 % (37.0-47.0) L Mean Corpuscular Volume 93 FL (80-99) Mean Corpuscular Hemoglobin 28.9 PG (27.0-31.0) Mean Corpuscular Hemoglobin Concent 31.1 G/DL (32.0-36.0) L Red Cell Distribution Width 18.8 % (11.6-14.8) H Platelet Count 140 K/UL (150-450) L Mean Platelet Volume 7.0 FL (6.5-10.1) Neutrophils (%) (Auto) % (45.0-75.0) Lymphocytes (%) (Auto) % (20.0-45.0) Monocytes (%) (Auto) % (1.0-10.0) Eosinophils (%) (Auto) % (0.0-3.0) Basophils (%) (Auto) % (0.0-2.0) Differential Total Cells Counted 100 Neutrophils % (Manual) 76 % (45-75) H Lymphocytes % (Manual) 14 % (20-45) L Monocytes % (Manual) 4 % (1-10) Eosinophils % (Manual) 0 % (0-3) Basophils % (Manual) 0 % (0-2) Band Neutrophils 6 % (0-8) Nucleated Red Blood Cells 1 /100 WBC Platelet Estimate Decreased L Platelet Morphology Normal Hypochromasia 1+ Anisocytosis 1+ Sodium Level 139 MMOL/L (136-145) Potassium Level 5.8 MMOL/L (3.5-5.1) H Chloride Level 108 MMOL/L (98-107) H Carbon Dioxide Level 23 MMOL/L (21-32) Anion Gap 8 mmol/L (5-15) Blood Urea Nitrogen 38 mg/dL (7-18) H Creatinine 2.0 MG/DL (0.55-1.30) H Estimat Glomerular Filtration Rate 24.9 mL/min (>60) Glucose Level 125 MG/DL (74-106) H Calcium Level 7.9 MG/DL (8.5-10.1) L Total Bilirubin 0.4 MG/DL (0.2-1.0) Direct Bilirubin 0.3 MG/DL (0.0-0.3) Aspartate Amino Transf (AST/SGOT) 14 U/L (15-37) L Alanine Aminotransferase (ALT/SGPT) < 6 U/L (12-78) L Alkaline Phosphatase 74 U/L (46-116) Total Protein 5.4 G/DL (6.4-8.2) L Albumin 1.4 G/DL (3.4-5.0) L Test 01/21/20 12:40 Lactic Acid Level 1.90 mmol/L (0.4-2.0) Plan Problems: (1) Urinary tract infection (2) CHF exacerbation (3) History of schizophrenia (4) Atrial fibrillation with RVR (5) Schizophrenia (6) GERD (gastroesophageal reflux disease) (7) Smoker (8) Atrial fibrillation with rapid ventricular response (9) Lymphadema (10) COPD (chronic obstructive pulmonary disease) (11) CKD (chronic kidney disease) stage 3, GFR 30-59 ml/min (12) NATALIE (acute kidney injury) (13) Dehydration (14) Dysphagia (15) UTI (urinary tract infection) (16) UGI bleed (17) ESBL (extended spectrum beta-lactamase) producing bacteria infection (18) Constipation (19) Lactic acidosis (20) Tinea cruris (21) Onychomycosis (22) Emesis (23) Essential hypertension (24) Anemia (25) Cough (26) Depression (27) Depression (28) Edema (29) Rash (30) Opiate dependence (31) Opiate dependence (32) Opiate dependence (33) Opiate dependence (34) Pyelonephritis (35) Sepsis (36) UTI (urinary tract infection) (37) Nausea and vomiting (38) Abdominal pain Assessment & Plan: [age]-year-old female obese white abdominal pain deep tissue injury identified limited mobility on HD. KUB noted tube in place continue meds feeds Does not seem obstructed We will monitor lines noted. plan change resume tube feeds labs okay FINDINGS: Lower thorax: Obscuration of the left costophrenic angle suggestive of pleural effusion. Intraperitoneal space: No free air. Gastrointestinal tract: Unremarkable. No dilation. Bones/joints: Unremarkable. Tubes, lines and devices: The nasogastric tube has the tip at the mid inferior aspect of the gastric body. Other findings: Nonspecific gas pattern. Single frontal view of the abdomen demonstrates tip of the enteric tube and distal side-port projecting over the stomach. Gas is identified within the nondistended large bowel. There is a paucity of small bowel gas seen. Partially visualized left pleural effusion. No other significant interval change. (39) Chest pain (40) Chest pain (41) Nausea (42) Obesity (43) Chronic ulcer of leg (44) Chronic ulcer of leg (45) Chronic ulcer of leg (46) ACS (acute coronary syndrome) (47) Acute chest pain (48) Encounter for dressing change or suture removal (49) Left leg cellulitis (50) Acute encephalopathy (51) Encounter for wound re-check (52) Intractable nausea and vomiting (53) Infection due to ESBL-producing Escherichia coli (54) Chronic venous stasis (55) Change of dressing (56) Change of dressing (57) Change of dressing (58) Change of dressing (59) Change of dressing (60) Change of dressing (61) Change of dressing (62) Change of dressing (63) ESBL urine (64) Lymphadema (65) Lymphedema (66) Lymphedema (67) Lymphedema (68) Lymphedema (69) Lymphedema (70) Lymphedema (71) Lymphedema (72) Lymphedema (73) Open wound of foot (74) Open wound of foot (75) cellulitis (76) chronic lymphedema (77) chronic lymphedema (78) chronic lymphedema (79) hypertension uncontrolled (80) hypertension uncontrolled (81) Intertrigo (82) Sciatica (83) Cellulitis (84) Schizophrenia (85) Chronic bronchitis (86) HTN (hypertension) (87) Venous stasis ulcers (88) Medication refill (89) Chest pain, atypical (90) BMI 45.0-49.9, adult (91) Lymphedema of both lower extremities (92) hypertension uncontrolled (93) hypertension uncontrolled (94) hypertension uncontrolled (95) tenia corpus (96) Deep tissue injury Assessment & Plan: Morbidly obese pt whom presented on admission with Pressure injuries, Edemae bilat lower extremities eschar to dorsal aspects of metatarsals. Pt is very demanding of staff and can be resistive to repositioning. DTPI noted to L Sacrum(L)5.5cm x (W)2.5cm. Base of Pressure Injury is Maroon and indurated with surrounding non-blanchable erythema DTPI R Sacrum(L)5.5cm x (W)2.3cm. Base of Pressure Injury is maroon with purpuric center that is fluctuant. Pt complained of tenderness when minimally palpated. Bilat lower extremities are edematous . Dry eschar noted to nail matrix and tip of L 1st metatarsal, Dorsal L 2nd metatarsal, R 2nd and R 4th metatarsals. Both heels are boggy with non-Blanchable erythema. blisters forming on Right lower extremity anterior tibia. not infected cellulitis / edema on b/l le stable cont abx Tx.Plan: Apply Moisture Barrier Paste to Sacrum R and L gluteal cheeks. Cover with Optifoam drsgs. Change every 3 days and prn. Apply Betadine to dry eschar metatarsals both feet Daily. Apply Cavilon Skin Barrier to both heels. Cover each heel with Optifoam drsgs. Change every 7days and prn. Reposition at least every 2hours or as tolerated. Off-load heels with pillow. right leg hematoma stable critically ill and edema on right leg has compromised dermis over the hematoma. will likely need debridement once improved (97) COVID-19 Assessment & Plan: ++ on vent weaning abx as per ID (98) Respiratory failure Assessment & Plan: not able to wean safely will plan for trach case discussed with medical team, pulm, icu. recommended to trach given medical condition. medically indicated and recommended. s/p trach 01/08 s/p trach more comfortable less agitated on vent weaning here is complete or near complete opacification of left hemithorax. There is increasing pleural fluid on the right. Interstitial and airspace disease on the right is unchanged. Tracheostomy is again demonstrated Impression: Complete or near complete opacification left hemithorax. This may indicate rapidly accumulating pleural effusion, versus atelectatic left lung. chest tube 01/17 left chest tube to water seal am cxr (99) Pneumonia Juan Manuel Buckner Jan 21, 2020 13:45
[2020-01-21 14:20] LABS: APPEARANCE,URINE SLIGHTLY CLOUDY; BILIRUBIN, URINE NEGATIVE (NEGATIVE); COLOR,URINE AMBER; GLUCOSE, URINE (UA) NEGATIVE (NEGATIVE); KETONES,URINE NEGATIVE (NEGATIVE); LEUKOCYTE ESTERASE ,URINE 1+ (NEGATIVE); NITRITE,URINE NEGATIVE (NEGATIVE); PH,URINE 5 (4.5-8.0); PROTEIN,URINE 1+ (NEGATIVE); UROBILINOGEN,URINE 4 MG/DL (0.0-1.0)
--- NOTE | 2020-01-21 14:47 | NUR ---
CASE MANAGEMENT:REVIEW SI;RESPIRATORY FAILURE. FUNGEMIA. UTI. 101.3 117 32 108/48 96% TRACH/VENT FIO2 @ 50% H/H 7.5/24.2 PLT 140 NA 5.8 BUN 38 CR 2.0 LAC ACID 2.40 ALB 1.4 IS;LOPRESSOR GT Q12 DILTIAZEM IV Q24 LASIX IV Q8 LINEZOLID IV Q12 MEROPENEM IV Q12 MUCOMYST HHN Q6HRT DIAMOX GT Q12 BACTRIM DC IV Q6 ICU STATUS DCP;LTACH REFERRAL
[2020-01-21] MEDS ORDERED: Tubing IV Secondary IV ONE (15:53)
[2020-01-21] MEDS ORDERED: NS 275ml ONE (15:53)
--- NOTE | 2020-01-21 17:21 | NUR ---
NURSE NOTES: Bed bath given to patient, turned and repositioned. Patient tolerated well, no signs of acute distress. Oral care given, white foamy oral secretions removed via suction.
--- NOTE | 2020-01-21 17:54 | Cardiology Progress Note ---
Subjective DATE OF SERVICE: Jan 21, 2020 Doing poorly - remains in ICU in critical condition with guarded prognosis. Now s/p left thoracotomy/chest tube for opacified left lung; now placed to waterseal. Remains on vent support - s/p trach. BP range remaining low normal range. Remains COVID19 positive. Monitor: AFIb with poor rate control; now placed back on IV cardizem with BBlocker per GTube. Venous Duplex: negative for DVT Renal fxn and free water deficit worsening Objective Last 24 Hour Vital Signs Date Time Temp Pulse Resp B/P (MAP) Pulse Ox O2 Delivery O2 Flow Rate FiO2 01/21/20 17:00 117 29 121/62 (81) 92 01/21/20 16:30 111 27 112/65 (81) 95 01/21/20 16:15 114 27 112/72 (85) 95 01/21/20 16:00 120 31 112/65 (81) 100 01/21/20 16:00 99.4 113 28 124/66 (85) 93 01/21/20 16:00 119 01/21/20 16:00 Mechanical Ventilator 01/21/20 16:00 50 01/21/20 15:30 111 27 116/61 (79) 96 01/21/20 15:19 106 29 50 01/21/20 15:10 101 29 105/67 96 01/21/20 15:00 108 29 113/65 (81) 96 01/21/20 14:30 110 29 116/64 (81) 96 01/21/20 14:18 101 29 105/67 96 01/21/20 14:00 101 29 105/67 (80) 96 01/21/20 13:30 98 29 104/57 (73) 97 01/21/20 13:25 100 28 96 Mechanical Ventilator 50 100 28 50 01/21/20 13:00 103 28 108/48 (68) 96 01/21/20 12:30 106 30 103/51 (68) 97 01/21/20 12:08 100.3 01/21/20 12:00 Mechanical Ventilator 01/21/20 12:00 50 01/21/20 12:00 101.2 105 28 109/51 (70) 97 01/21/20 11:45 111 29 108/56 (73) 97 01/21/20 11:30 117 29 108/56 (73) 97 01/21/20 11:25 113 01/21/20 11:15 115 28 112/50 (70) 96 01/21/20 11:00 117 27 112/57 (75) 97 01/21/20 10:40 111 27 50 01/21/20 10:00 109 32 120/65 (83) 98 01/21/20 09:45 109 28 116/73 (87) 97 01/21/20 09:30 106 30 117/54 (75) 97 01/21/20 09:15 106 30 104/67 (79) 97 01/21/20 09:00 99.8 111 31 108/57 (74) 96 01/21/20 08:45 120 31 110/51 (70) 96 01/21/20 08:12 145 128/58 01/21/20 08:00 Mechanical Ventilator 01/21/20 08:00 152 29 126/75 (92) 99 01/21/20 08:00 50 01/21/20 07:52 149 01/21/20 07:29 145 30 99 Mechanical Ventilator 50 145 30 50 01/21/20 07:00 145 32 128/58 (81) 97 01/21/20 06:28 100.5 01/21/20 06:02 150 30 126/68 98 01/21/20 06:00 155 33 126/68 (87) 96 01/21/20 05:32 150 34 114/79 98 01/21/20 05:31 150 114/79 01/21/20 05:00 155 31 127/99 (108) 97 01/21/20 04:00 136 01/21/20 04:00 99.5 139 29 120/91 (101) 98 01/21/20 04:00 50 01/21/20 04:00 Mechanical Ventilator 01/21/20 03:54 146 29 50 01/21/20 03:00 120 30 129/66 (87) 95 01/21/20 02:00 116 27 118/54 (75) 98 01/21/20 01:47 109 22 99 Mechanical Ventilator 50 120 22 50 01/21/20 01:00 142 31 103/77 (86) 97 01/21/20 00:30 143 29 107/52 (70) 97 01/21/20 00:08 134 115/96 01/21/20 00:07 138 115/96 01/21/20 00:00 99.5 139 31 115/96 (102) 99 01/21/20 00:00 137 01/21/20 00:00 50 01/21/20 00:00 Mechanical Ventilator 01/20/20 23:59 134 29 50 01/20/20 23:20 100.3 01/20/20 23:00 126 34 113/54 (73) 95 01/20/20 22:45 124 32 98/61 (73) 96 01/20/20 22:30 117 33 107/55 (72) 95 01/20/20 22:11 108 30 100/59 97 01/20/20 22:00 108 30 100/59 (73) 96 01/20/20 21:41 101 20 109/60 98 01/20/20 21:00 92 21 101/53 (69) 99 01/20/20 20:00 85 01/20/20 20:00 99.9 87 20 101/41 (61) 97 01/20/20 20:00 Mechanical Ventilator 01/20/20 20:00 50 01/20/20 19:34 84 22 100 Mechanical Ventilator 50 105 25 50 01/20/20 19:00 91 31 96/47 (63) 97 01/20/20 18:29 125 127/73 01/20/20 18:28 134 127/73 01/20/20 18:00 117 33 103/45 (64) 99 ROS: unchanged from 12/12/19 HEENT: Orally intubated, Mechanically Ventilated, Thin secretions ET Tube, other - NGtube RHYTHM: NSR, ST LUNGS: diminished breath sounds, right-sided rhonchi CARDIAC: normal S1 and S2, irregularly irregular ABDOMEN: other - obese EXTREMITIES: moderate edema - mostly non pitting, other - hematoma right leg Laboratory Tests Test 01/21/20 05:19 01/21/20 08:28 01/21/20 12:40 01/21/20 12:51 White Blood Count 7.6 K/UL (4.8-10.8) Red Blood Count 2.60 M/UL (4.20-5.40) L Hemoglobin 7.5 G/DL (12.0-16.0) L Hematocrit 24.2 % (37.0-47.0) L Mean Corpuscular Volume 93 FL (80-99) Mean Corpuscular Hemoglobin 28.9 PG (27.0-31.0) Mean Corpuscular Hemoglobin Concent 31.1 G/DL (32.0-36.0) L Red Cell Distribution Width 18.8 % (11.6-14.8) H Platelet Count 140 K/UL (150-450) L Mean Platelet Volume 7.0 FL (6.5-10.1) Neutrophils (%) (Auto) % (45.0-75.0) Lymphocytes (%) (Auto) % (20.0-45.0) Monocytes (%) (Auto) % (1.0-10.0) Eosinophils (%) (Auto) % (0.0-3.0) Basophils (%) (Auto) % (0.0-2.0) Differential Total Cells Counted 100 Neutrophils % (Manual) 76 % (45-75) H Lymphocytes % (Manual) 14 % (20-45) L Monocytes % (Manual) 4 % (1-10) Eosinophils % (Manual) 0 % (0-3) Basophils % (Manual) 0 % (0-2) Band Neutrophils 6 % (0-8) Nucleated Red Blood Cells 1 /100 WBC Platelet Estimate Decreased L Platelet Morphology Normal Hypochromasia 1+ Anisocytosis 1+ Sodium Level 139 MMOL/L (136-145) Potassium Level 5.8 MMOL/L (3.5-5.1) H Chloride Level 108 MMOL/L (98-107) H Carbon Dioxide Level 23 MMOL/L (21-32) Anion Gap 8 mmol/L (5-15) Blood Urea Nitrogen 38 mg/dL (7-18) H Creatinine 2.0 MG/DL (0.55-1.30) H Estimat Glomerular Filtration Rate 24.9 mL/min (>60) Glucose Level 125 MG/DL (74-106) H Lactic Acid Level 2.40 mmol/L (0.4-2.0) H 1.90 mmol/L (0.4-2.0) Calcium Level 7.9 MG/DL (8.5-10.1) L Total Bilirubin 0.4 MG/DL (0.2-1.0) Direct Bilirubin 0.3 MG/DL (0.0-0.3) Aspartate Amino Transf (AST/SGOT) 14 U/L (15-37) L Alanine Aminotransferase (ALT/SGPT) < 6 U/L (12-78) L Alkaline Phosphatase 74 U/L (46-116) Total Protein 5.4 G/DL (6.4-8.2) L Albumin 1.4 G/DL (3.4-5.0) L Arterial Blood pH 7.315 (7.350-7.450) Arterial Blood Partial Pressure CO2 37.2 mmHg (35.0-45.0) Arterial Blood Partial Pressure O2 85.7 mmHg (75.0-100.0) Arterial Blood HCO3 18.7 mmol/L (22.0-26.0) L Arterial Blood Oxygen Saturation 95.3 % (95-100) Arterial Blood Base Excess -6.9 (-2-2) L Eugene Test Positive Urine Color Norma Urine Appearance Slightly cloudy Urine pH 5 (4.5-8.0) Urine Specific [place] 1.015 (1.005-1.035) Urine Protein 1+ (NEGATIVE) H Urine Glucose (UA) Negative (NEGATIVE) Urine Ketones Negative (NEGATIVE) Urine Blood Negative (NEGATIVE) Urine Nitrite Negative (NEGATIVE) Urine Bilirubin Negative (NEGATIVE) Urine Ictotest Negative (NEGATIVE) Urine Urobilinogen 4 MG/DL (0.0-1.0) H Urine Leukocyte Esterase 1+ (NEGATIVE) H Urine RBC 0 /HPF (0 - 2) Urine WBC 2-4 /HPF (0 - 2) Urine Squamous Epithelial Cells Few /LPF (NONE/OCC) Urine Bacteria Occasional /HPF (NONE) Urine Yeast Few /HPF (NONE) H Assessment/Plan Assessment/Plan CRITICAL AND GUARDED Left lung opacification - s/p chest tube placement 01/18/20. Acute respiratory failure - s/p trach Acute on chronic respiratory acidosis AFiB with labile heart rates, and now persistent RVR. CHF, ac/chr diastolic BLE edema Sepsis with shock obesity COPD with bronchospasm Acute renal failure - worsening Pleural effusion GI bleeding Anemia - multifactorial, now worse Covid 19 PNA Hyperkalemia Recurring lactic acidosis Dehydration/hypernatremia Hypertension/HHD with labile BP - now stable range. Vent support Chest tube management Titrate beta yves and IV diltiazem doses. Hold diuretic dosing for 24hrs and reassess. Consider PRBC transfusion for hb below 7gm/dl Monitor acid/base parameters. Antimicrobials Lovenox added for cardioembolic prophyl Continued cardiac catheterization technician Agree with DNR Jerome Meek MD Jan 21, 2020 17:53
[2020-01-21] MEDS: Ipratropium 0.02% Inh Soln 2.5ml UD HHN PRN (19:18)
--- NOTE | 2020-01-21 19:20 | NUR ---
NURSE NOTES: pt report received from HUMPHREY RN. pt remains stable. pt is alert and oriented times 1, no acute abnormalities neuro uriostegui. pt is on cardiac rehabilitation program director showing A fib, controlled by Cardizem drip. , no other acute cardiac distress noted. pt is trach vented sating 98% O2, no acute resp distress noted. pt bed is low, locked, armed, call light within reach, will follow plan of care.
--- NOTE | 2020-01-21 19:26 | NUR ---
NURSE HAND-OFF REPORT: Latest Vital Signs: Temperature 99.4 , Pulse 121 , B/P 107 /74 , Respiratory Rate 29 , O2 SAT 99 , Mechanical Ventilator, O2 Flow Rate . Vital Sign Comment: EKG Rhythm: Atrial Fibrillation Rhythm change?: N Notified?: N -MD Gaviota UNDERWOOD Response: Latest Abreu Fall Score: 75 Fall Risk: High Risk Safety Measures: Call light Within Reach, Bed Alarm Zone 1, Side Rails Side Rails x3, Bed position Low and Locked. Fall Precautions: Yellow Socks Yellow Gown Door Sign Patient Fall Education Report given to Chava COHEN.
--- NOTE | 2020-01-21 19:31 | NUR ---
RESPIRATORY NOTE: Received pt on AC 18, 600VT, 50%, PEEP +8. Pt is trach-dependent w/ a Cuffed, Shiley 8 tube. Pt asleep. B/S heidi. rhonchi, sxn small amounts of thick/thin, pale-yellow secretions. Vent plugged into red outlet, ambubag at bedside. Pt in no apparent distress at this time. Will continue plan of care.
--- NOTE | 2020-01-21 20:00 | NUR ---
NURSE NOTES: Cardizem Drip titrated to 15MG/ML per hr, following protocol to achieve HR less than 100. monitoring vital signs Q15 for the first hr, following protocol.
[2020-01-21] MEDS: Ascorbic Acid 500mg tab GT SCH (20:19)
[2020-01-21] MEDS: Dyna-Hex 2% Top Sol 2oz TOPIC SCH (20:19)
[2020-01-21] MEDS: Miralax 17gm pkt GT SCH (20:19)
--- NOTE | 2020-01-21 22:13 | NUR ---
NURSE NOTES: pt restraints off as of now. no abnormalities to skin noted. pt vital signs are stable.
[2020-01-22] VITALS (48 sets, daily range): BP systolic 80–159; BP diastolic 60–96
--- NOTE | 2020-01-22 00:17 | Psych Consult Progress Note ---
Psychiatry Progress Note Psychiatry Progress Note Subjective the pt is still pancytopenic the pt is not agitated the pt was asleep not able to arose Medications Current Medications Medications (Trade) Dose Ordered Sig/Shiraz Route PRN Reason Start Time Stop Time Status Last Admin Dose Admin Acetaminophen (Tylenol) 650 mg Q4H PRN GT Temp >100.5 01/12/20 10:00 02/11/20 09:59 01/21/20 05:58 Acetaminophen (Tylenol) 650 mg Q4H PRN GT Mild Pain (Pain Scale 1-3) 01/12/20 10:00 02/11/20 09:59 01/21/20 11:38 Acetazolamide (Diamox) 500 mg EVERY 12 HOURS GT 01/17/20 21:00 02/01/20 17:59 01/21/20 20:19 Acetylcysteine (Mucomyst) 200 mg Q6HRT HHN 01/19/20 13:30 04/18/20 13:29 01/21/20 19:18 Albuterol Sulfate (Proventil MDI) 2 puff Q4H PRN INH Shortness of Breath 12/24/19 10:30 03/23/20 10:29 01/12/20 09:44 Ascorbic Acid (Vitamin C) 500 mg BEDTIME GT 01/17/20 21:00 02/16/20 20:59 01/21/20 20:19 Bacitracin (Bacitracin 15gm tube) 1 applic EVERY 12 HOURS TOPIC 01/16/20 11:00 04/15/20 10:59 01/21/20 20:21 Chlorhexidine Gluconate (Jessie-Hex 2%) 1 applic DAILY@1999 TOPIC 12/24/19 20:00 03/23/20 19:59 01/21/20 20:19 Clotrimazole (Lotrimin) 1 applic EVERY 12 HOURS TOPIC 01/05/20 09:00 03/12/20 08:59 01/21/20 20:22 Diltiazem HCl 125 ml @ 0 mls/hr Q24H IVPB 01/21/20 08:15 01/22/20 08:14 01/21/20 18:15 Docusate Sodium (Colace) 100 mg EVERY 12 HOURS GT 01/17/20 09:00 01/24/20 08:59 01/21/20 20:18 Enoxaparin Sodium (Lovenox) 60 mg DAILY SUBQ 01/13/20 12:00 04/12/20 11:59 01/21/20 08:13 Ipratropium [place] (Atrovent) 500 mcg Q6H PRN HHN Shortness of Breath 01/19/20 13:30 01/24/20 13:29 01/21/20 19:18 Linezolid 300 ml @ 300 mls/hr EVERY 12 HOURS IVPB 01/19/20 21:00 01/26/20 20:59 01/21/20 20:18 Meropenem 1 gm/ Sodium Chloride 100 ml @ 200 mls/hr Q12H IVPB 01/19/20 16:00 01/24/20 15:59 01/21/20 16:08 Metoclopramide HCl (Reglan) 5 mg Q6H IVP 01/05/20 09:15 02/04/20 09:14 01/21/20 21:02 Metoprolol Tartrate (Lopressor) 100 mg EVERY 12 HOURS GT 01/21/20 09:00 04/20/20 08:59 01/21/20 20:20 Micafungin Sodium 100 mg/Sodium Chloride 100 ml @ 100 mls/hr Q24H IVPB 01/20/20 19:00 01/27/20 18:59 01/21/20 18:15 Midazolam HCl (Versed 2mg/2ml vial) 2 mg Q1H PRN IVP Agitation 01/18/20 20:00 01/25/20 19:59 01/20/20 11:30 Multivitamins (Multivitamins W/ Minerals 15ml Liquid) 15 ml Q24H GT 01/18/20 11:00 02/17/20 10:59 01/21/20 11:24 Pantoprazole (Protonix) 40 mg EVERY 12 HOURS IVP 01/01/20 21:00 01/31/20 20:59 01/21/20 20:18 Polyethylene Glycol (Miralax) 17 gm BEDTIME GT 01/17/20 21:00 01/28/20 20:59 01/21/20 20:19 Quetiapine Fumarate (SEROqueL) 150 mg EVERY 8 HOURS GT 01/17/20 14:00 02/25/20 21:59 01/21/20 21:03 Trimethoprim/ Sulfamethoxazole 15 ml/Dextrose 565 ml @ 376.667 mls/hr D3AF-OP BACTRIM IV 01/17/20 20:00 01/24/20 19:59 01/21/20 21:02 Neurological/Psychiatric: Reports: anxiety, depressed, emotional problems Allergies: Coded Allergies: ERYTHROMYCIN BASE (Verified Allergy, Severe, 12/12/19) HALOPERIDOL (Verified Allergy, Unknown, 12/12/19) VANCOMYCIN (Unverified Adverse Reaction, Intermediate, Shortness of Breath, 12/12/19) Objective Data Height (Feet): 5 Height (Inches): 6.00 Weight (Pounds): 343 General Appearance: no apparent distress, lethargic, morbidly obese Additional Comments: Assessment/Plan Crocker I: seroquel 150 tid ativan 1mg q 8 hrs bilat restraints. Status: stable Status Narrative seroquel 125 tid ativan 1mg q 8 hrs/prn bilat restraints. Assessment/Plan: seroquel 150 tid ativan 1mg q 8 hrs bilat restraints. Harris Ballesteros MD Jan 22, 2020 00:17
[2020-01-22] MEDS: Acetylcysteine 20% Soln 4ml HHN SCH ×4 (00:50→18:49)
[2020-01-22] MEDS: Ipratropium 0.02% Inh Soln 2.5ml UD HHN PRN ×4 (00:50→18:49)
[2020-01-22] MEDS: dilTIAZem Premix 125mg/125ml 125 ML IVPB SCH ×3 (02:50→20:18)
[2020-01-22] MEDS: Metoclopramide 10mg/2ml Inj IVP SCH ×4 (03:07→20:56)
[2020-01-22] MEDS: BACTRIM IV SCH ×3 (03:07→14:25)
[2020-01-22] MEDS: D5W IV SCH ×3 (03:07→14:25)
--- NOTE | 2020-01-22 03:15 | NUR ---
NURSE NOTES: marleen program management manager by pts bed side drawing pts lab/ blood draw.
--- NOTE | 2020-01-22 04:00 | NUR ---
NURSE NOTES: pt assessed. vital signs are stable. HR fluctuating between 100 - 130s. how ever no additional concerns to pts condition or vital signs. Cardizem maxed out to 15mg.
[2020-01-22 05:29] LABS: HEMATOCRIT 22.1 % (37.0-47.0); MEAN CORPUSCULAR VOLUME 92 FL (80-99); PLATELET COUNT 192 K/UL (150-450); RED CELL DISTRIBUTION WIDTH 18.8 % (11.6-14.8); WHITE BLOOD COUNT 7.2 K/UL (4.8-10.8)
[2020-01-22 05:49] LABS: CALCIUM 8.3 MG/DL (8.5-10.1); CREATININE 1.9 MG/DL (0.55-1.30); PHOSPHORUS 3.8 MG/DL (2.5-4.9); POTASSIUM 5.4 MMOL/L (3.5-5.1)
--- NOTE | 2020-01-22 06:51 | General Progress Note ---
Subjective ROS Limited/Unobtainable: No Allergies: Coded Allergies: ERYTHROMYCIN BASE (Verified Allergy, Severe, 12/12/19) HALOPERIDOL (Verified Allergy, Unknown, 12/12/19) VANCOMYCIN (Unverified Adverse Reaction, Intermediate, Shortness of Breath, 12/12/19) Objective Last 24 Hour Vital Signs Date Time Temp Pulse Resp B/P (MAP) Pulse Ox O2 Delivery O2 Flow Rate FiO2 01/22/20 06:30 139 28 135/92 (106) 98 01/22/20 06:00 136 29 132/68 (89) 98 01/22/20 05:30 137 29 144/96 (112) 98 01/22/20 05:00 132 30 134/61 (85) 100 01/22/20 04:30 139 30 106/70 (82) 95 01/22/20 04:00 134 01/22/20 04:00 98.4 139 28 121/75 (90) 98 01/22/20 04:00 50 01/22/20 04:00 Mechanical Ventilator 01/22/20 03:30 132 29 100/87 (91) 98 01/22/20 03:08 133 31 50 01/22/20 03:00 136 30 128/68 (88) 99 01/22/20 02:00 120 30 120/67 (84) 95 01/22/20 01:30 112 27 122/62 (82) 96 01/22/20 01:05 108 29 100 Mechanical Ventilator 50 104 25 50 01/22/20 01:00 107 21 127/61 (83) 97 01/22/20 00:30 105 28 130/66 (87) 99 01/22/20 00:00 100 01/22/20 00:00 Mechanical Ventilator 01/22/20 00:00 98.0 102 29 118/63 (81) 99 01/22/20 00:00 50 01/21/20 23:30 98 29 103/50 (67) 99 01/21/20 23:00 101 30 107/56 (73) 99 01/21/20 22:49 100 31 50 01/21/20 22:30 100 30 127/63 (84) 98 01/21/20 22:00 97 29 103/65 (78) 99 01/21/20 21:30 103 29 115/83 (94) 98 10/12/20 21:00 105 29 117/88 (98) 97 01/21/20 20:45 125 29 120/79 (93) 99 01/21/20 20:30 98 29 115/80 (92) 98 01/21/20 20:20 131 133/51 01/21/20 20:15 115 29 126/70 (88) 99 01/21/20 20:00 98.2 121 29 110/76 (87) 99 01/21/20 20:00 119 01/21/20 20:00 Mechanical Ventilator 01/21/20 20:00 50 01/21/20 19:27 107 28 99 Mechanical Ventilator 50 113 27 50 01/21/20 19:00 121 29 107/74 (85) 99 01/21/20 18:00 122 31 118/66 (83) 94 01/21/20 17:30 120 27 115/49 (71) 96 01/21/20 17:00 117 29 121/62 (81) 92 01/21/20 16:30 111 27 112/65 (81) 95 01/21/20 16:15 114 27 112/72 (85) 95 01/21/20 16:00 120 31 112/65 (81) 100 01/21/20 16:00 99.4 113 28 124/66 (85) 93 01/21/20 16:00 119 01/21/20 16:00 Mechanical Ventilator 01/21/20 16:00 50 01/21/20 15:30 111 27 116/61 (79) 96 01/21/20 15:19 106 29 50 01/21/20 15:10 101 29 105/67 96 01/21/20 15:00 108 29 113/65 (81) 96 01/21/20 14:30 110 29 116/64 (81) 96 01/21/20 14:18 101 29 105/67 96 01/21/20 14:00 101 29 105/67 (80) 96 01/21/20 13:30 98 29 104/57 (73) 97 01/21/20 13:25 100 28 96 Mechanical Ventilator 50 100 28 50 01/21/20 13:00 103 28 108/48 (68) 96 01/21/20 12:30 106 30 103/51 (68) 97 01/21/20 12:08 100.3 01/21/20 12:00 Mechanical Ventilator 01/21/20 12:00 50 01/21/20 12:00 101.2 105 28 109/51 (70) 97 01/21/20 11:45 111 29 108/56 (73) 97 01/21/20 11:30 117 29 108/56 (73) 97 01/21/20 11:25 113 01/21/20 11:15 115 28 112/50 (70) 96 01/21/20 11:00 117 27 112/57 (75) 97 01/21/20 10:40 111 27 50 01/21/20 10:00 109 32 120/65 (83) 98 01/21/20 09:45 109 28 116/73 (87) 97 01/21/20 09:30 106 30 117/54 (75) 97 01/21/20 09:15 106 30 104/67 (79) 97 01/21/20 09:00 99.8 111 31 108/57 (74) 96 01/21/20 08:45 120 31 110/51 (70) 96 01/21/20 08:12 145 128/58 01/21/20 08:00 Mechanical Ventilator 01/21/20 08:00 152 29 126/75 (92) 99 01/21/20 08:00 50 01/21/20 07:52 149 01/21/20 07:29 145 30 99 Mechanical Ventilator 50 145 30 50 01/21/20 07:00 145 32 128/58 (81) 97 Intake and Output 01/21/20 01/22/20 19:00 07:00 Intake Total 2343.120 ml 2735.334 ml Output Total 1400 ml 650 ml Balance 943.120 ml 2085.334 ml Free Water 200 ml 600 ml IV Total 1663.120 ml 1695.334 ml Tube Feeding 480 ml 440 ml Output Urine Total 1400 ml 650 ml Laboratory Tests 01/21/20 08:28: Arterial Blood pH 7.315L, Arterial Blood Partial Pressure CO2 37.2, Arterial Blood Partial Pressure O2 85.7, Arterial Blood HCO3 18.7L, Arterial Blood Oxygen Saturation 95.3, Arterial Blood Base Excess -6.9L, Eugene Test Positive 01/21/20 12:40: Lactic Acid Level 1.90 01/21/20 12:51: Urine Color Norma, Urine Appearance Slightly cloudy, Urine pH 5, Urine Specific [place] 1.015, Urine Protein 1+H, Urine Glucose (UA) Negative, Urine Ketones Negative, Urine Blood Negative, Urine Nitrite Negative, Urine Bilirubin Negative, Urine Ictotest Negative, Urine Urobilinogen 4H, Urine Leukocyte Esterase 1+H, Urine RBC 0, Urine WBC 2-4, Urine Squamous Epithelial Cells Few, Urine Bacteria Occasional, Urine Yeast FewH 01/22/20 03:50: Lactic Acid Level 2.70H, White Blood Count 7.2, Red Blood Count 2.40L, Hemoglobin 7.0L, Hematocrit 22.1L, Mean Corpuscular Volume 92, Mean Corpuscular Hemoglobin 29.3, Mean Corpuscular Hemoglobin Concent 31.9L, Red Cell Distributi on Width 18.8H, Platelet Count 192, Mean Platelet Volume 7.7, Neutrophils (%) (Auto) , Lymphocytes (%) (Auto) , Monocytes (%) (Auto) , Eosinophils (%) (Auto) , Basophils (%) (Auto) , Neutrophils % (Manual) [Pending], Lymphocytes % (Manual) [Pending], Platelet Estimate [Pending], Platelet Morphology [Pending], Sodium Level 135L, Potassium Level 5.4H, Chloride Level 105, Carbon Dioxide Level 21, Anion Gap 9, Blood Urea Nitrogen 42H, Creatinine 1.9H, Estimat Glomerular Filtration Rate 26.3, Glucose Level 160H, Calcium Level 8.3L, Phosphorus Level 3.8, Magnesium Level 2.6H Height (Feet): 5 Height (Inches): 6.00 Weight (Pounds): 343 General Appearance: no apparent distress EENT: normal ENT inspection Neck: supple Cardiovascular: tachycardia, arrhythmia, irregularly irregular Respiratory/Chest: decreased breath sounds Abdomen: normal bowel sounds, non tender, soft Extremities: non-tender Assessment/Plan Problem List: (1) CKD (chronic kidney disease) stage 3, GFR 30-59 ml/min ICD Codes: N18.3 - Chronic kidney disease, stage 3 (moderate) SNOMED: 457333602 (2) COPD (chronic obstructive pulmonary disease) ICD Codes: J44.9 - Chronic obstructive pulmonary disease, unspecified SNOMED: 22508777 (3) Smoker ICD Codes: F17.200 - Nicotine dependence, unspecified, uncomplicated SNOMED: 84172952 (4) GERD (gastroesophageal reflux disease) ICD Codes: K21.9 - Gastro-esophageal reflux disease without esophagitis SNOMED: 845754087 (5) Atrial fibrillation with RVR ICD Codes: I48.91 - Unspecified atrial fibrillation SNOMED: 698175708472885 Status: stable Assessment/Plan: fu H&H monitor labs bowel regimen fu cardiology recs on cardizam drip icu care ppi cbc in am s/p Trach and PEG GTF monitor for residuals Mervin Victoria MD Jan 22, 2020 06:51
--- NOTE | 2020-01-22 06:55 | NUR ---
NURSE NOTES: doctor ry Razo called. doctor reviewed labs with an emphasis on pts H and H. doctor ordered 1u PRBC.
--- NOTE | 2020-01-22 07:30 | NUR ---
NURSE HAND-OFF REPORT: Latest Vital Signs: Temperature 98.4 , Pulse 145 , B/P 135 /66 , Respiratory Rate 27 , O2 SAT 99 , Mechanical Ventilator, O2 Flow Rate . Vital Sign Comment: [STABLE] EKG Rhythm: Atrial Fibrillation Rhythm change?: N Notified?: N -MD Gaviota UNDERWOOD Response: Latest Abreu Fall Score: 75 Fall Risk: High Risk Safety Measures: Call light Within Reach, Bed Alarm Zone 1, Side Rails Side Rails x3, Bed position Low and Locked. Fall Precautions: Yellow Socks Yellow Gown Door Sign Patient Fall Education Report given to [EPHRAIM COHEN].
--- NOTE | 2020-01-22 08:30 | NUR ---
NURSE NOTES: temperature is at 101.7 F taken axillary, feels hot to the touch and is sweating, heart rate is noted at 145-160 in A-fibb with Cardizem running at 15mg/hr. will administer Tylenol and apply cooling measure.
[2020-01-22] MEDS: Enoxaparin 60mg Inj SUBQ SCH (09:00)
[2020-01-22] MEDS: Docusate 100mg/10ml Liq GT SCH ×2 (09:11→20:54)
[2020-01-22] MEDS: Pantoprazole Inj IVP SCH ×2 (09:12→20:56)
[2020-01-22] MEDS: Acetaminophen 650mg/20.3ml GT PRN ×2 (09:13)
--- NOTE | 2020-01-22 10:02 | Pulmonolgy Critical Care Note ---
AndrésLuz [employer]ING [employer]ATION INST[employer]ER 01/22/20 1002: Critical Care - Asmt/Plan Assessment/Plan: ASSESSMENT acute hypoxemic hypercapnic resp failure, requiring intubation 12/22 failure to wean s/p trach 01/08 COVID 19 PNA ( last test NGT) sepsis fungemia empyema s/p L thoracotomy 01/17 UTI with E coli ESBL UTI VRE possible aspiration PNA - s/p treatment Moderate R pleural effusion s/p tap COPD Atrial fibrillation with RVR CHF Acute renal failure on CKD Severe anemia dysphagia, s/p PEG 01/08 Thrombocytopenia Status post ground fall Tobacco dependency Morbid obesity probable GARY R knee edema and hematoma, possible cellulitis Hyper Na due to free water deficit PLAN OF CARE s/p trach, prior not tolerated weaning trials; developed tachycardia /A fib with RVR back on Cardizem gtt , weaning trial on hold s/p tap 01/15 -500 ml pleural fluid pleural fl cx 01/15 E coli ESBL, GPC and yeast , glucose low -> c/w empyema abx as per ID recs -> now Meropenem, Linezolid , Micafungin, Bactrim s/p L thoracotomy 01/[address] in, monitor output -only [address] to water seal, CXR pending for this am ABG stable this am FiO2 down to 50% CT chest pending Mucomyst added to HHN repeated COVID 19 01/14 and 01/17 NGT s/p steroids IV ( started 12/23) continue for total of 10 days till 01/02 s/p Remdesivir (started 12/24 ), dc 12/30 initial diagnoses with COVID 19 at [facility] 11/29, was not hypoxic and not intubated, was not treated with Remdesivivr , only received empiric abx for PNA DVT prophylaxis with Lovenox on diuresis with Lasix, monitor volumes closely creat remains stable consider d/c Diamox afib rate control - s/p Cardizem gtt GI prophylaxis with PPI s/p PEG 01/09, asp precautions, severely leukopenic ? due to meds vs ? primary BM disease -resolving monitor counts immunofixation screen unremarkable transfuse to keep Hgb > 7 , s/p transfusion 01/13 previously evaluated by bioethics -> DNR/DNI status appropriate if not weanable in few days., consider transfer to LTAC for further management case discussed and evaluated by supervising physician Critical Care - Objective Last 24 Hour Vital Signs Date Time Temp Pulse Resp B/P (MAP) Pulse Ox O2 Delivery O2 Flow Rate FiO2 01/22/20 09:00 130 27 80/60 (67) 96 01/22/20 08:00 142 01/22/20 08:00 140 26 128/68 (88) 99 01/22/20 07:30 141 28 132/70 (90) 01/22/20 07:24 152 27 100 Mechanical Ventilator 50 132 29 50 01/22/20 07:00 145 27 135/66 (89) 99 01/22/20 06:30 139 28 135/92 (106) 98 01/22/20 06:00 136 29 132/68 (89) 98 01/22/20 05:30 137 29 144/96 (112) 98 01/22/20 05:00 132 30 134/61 (85) 100 01/22/20 04:30 139 30 106/70 (82) 95 01/22/20 04:00 134 01/22/20 04:00 98.4 139 28 121/75 (90) 98 01/22/20 04:00 50 01/22/20 04:00 Mechanical Ventilator 01/22/20 03:30 132 29 100/87 (91) 98 01/22/20 03:08 133 31 50 01/22/20 03:00 136 30 128/68 (88) 99 01/22/20 02:00 120 30 120/67 (84) 95 01/22/20 01:30 112 27 122/62 (82) 96 01/22/20 01:05 108 29 100 Mechanical Ventilator 50 104 25 50 01/22/20 01:00 107 21 127/61 (83) 97 01/22/20 00:30 105 28 130/66 (87) 99 01/22/20 00:00 100 01/22/20 00:00 Mechanical Ventilator 01/22/20 00:00 98.0 102 29 118/63 (81) 99 01/22/20 00:00 50 01/21/20 23:30 98 29 103/50 (67) 99 01/21/20 23:00 101 30 107/56 (73) 99 01/21/20 22:49 100 31 50 01/21/20 22:30 100 30 127/63 (84) 98 01/21/20 22:00 97 29 103/65 (78) 99 01/21/20 21:30 103 29 115/83 (94) 98 01/21/20 21:00 105 29 117/88 (98) 97 01/21/20 20:45 125 29 120/79 (93) 99 01/21/20 20:30 98 29 115/80 (92) 98 01/21/20 20:20 131 133/51 01/21/20 20:15 115 29 126/70 (88) 99 01/21/20 20:00 98.2 121 29 110/76 (87) 99 01/21/20 20:00 119 01/21/20 20:00 Mechanical Ventilator 01/21/20 20:00 50 01/21/20 19:27 107 28 99 Mechanical Ventilator 50 113 27 50 01/21/20 19:00 121 29 107/74 (85) 99 01/21/20 18:00 122 31 118/66 (83) 94 01/21/20 17:30 120 27 115/49 (71) 96 01/21/20 17:00 117 29 121/62 (81) 92 01/21/20 16:30 111 27 112/65 (81) 95 01/21/20 16:15 114 27 112/72 (85) 95 01/21/20 16:00 120 31 112/65 (81) 100 01/21/20 16:00 99.4 113 28 124/66 (85) 93 01/21/20 16:00 119 01/21/20 16:00 Mechanical Ventilator 01/21/20 16:00 50 01/21/20 15:30 111 27 116/61 (79) 96 01/21/20 15:19 106 29 50 01/21/20 15:10 101 29 105/67 96 01/21/20 15:00 108 29 113/65 (81) 96 01/21/20 14:30 110 29 116/64 (81) 96 01/21/20 14:18 101 29 105/67 96 01/21/20 14:00 101 29 105/67 (80) 96 01/21/20 13:30 98 29 104/57 (73) 97 01/21/20 13:25 100 28 96 Mechanical Ventilator 50 100 28 50 01/21/20 13:00 103 28 108/48 (68) 96 01/21/20 12:30 106 30 103/51 (68) 97 01/21/20 12:08 100.3 01/21/20 12:00 Mechanical Ventilator 01/21/20 12:00 50 01/21/20 12:00 101.2 105 28 109/51 (70) 97 01/21/20 11:45 111 29 108/56 (73) 97 01/21/20 11:30 117 29 108/56 (73) 97 01/21/20 11:25 113 01/21/20 11:15 115 28 112/50 (70) 96 01/21/20 11:00 117 27 112/57 (75) 97 01/21/20 10:40 111 27 50 01/21/20 10:00 109 32 120/65 (83) 98 Objective: CONDITION: critical General Appearance: morbidly obese , sedated, generalized anasarca ; on vent AC 600-18-50 % PEEP 8 Lines, tubes and drains: LUE PICC , intact HEENT: normocephalic, atraumatic, anicteric, Neck: trach with Shiley # 8, secretions moderate amount, yellow color, thick consistency Respiratory/Chest: few scattered rhonchi , L chest tube with serosanguineous drainage to water seal; dressing C/D/I Cardiovascular/Chest: irregularly irregular - A fib , tachy , distant heart sounds, Abdomen: normal bowel sounds, non tender , obese, soft ; G tube with TF : Lockett Extremities: no calf tenderness, moderate edema - +3 BLE, R knee with large hematoma, edema, Skin Exam: warm/dry, multiple tattoos Neurologic: sedated Musculoskeletal: normal muscle bulk Accucheck: 136 Critical Care - Subjective Interval Events: no fevers over night and this am, no leuk now on FiO2 50% ABG stable ; still with PEEP 8 remains in A fib with RVR, Cardizem gtt continues Condition: critical IV Access: PICC - LUE intact EKG Rhythm: Atrial Fibrillation - with RVR FI02: 50 Vent Support Breath Rate: 18 Vent Support Mode: AC Vent Tidal Volume: 600 Sputum Amount: Small PEEP: 8.0 PIP: 52 Drips: Cardizem gtt 15 mcg/hr Tube Feeding Amount: 40 I&O: Intake and Output 10/12/20 10/13/20 19:00 07:00 Intake Total 2343.120 ml 2790.334 ml Output Total 1400 ml 700 ml Balance 943.120 ml 2090.334 ml Free Water 200 ml 600 ml IV Total 1663.120 ml 1710.334 ml Tube Feeding 480 ml 480 ml Output Urine Total 1400 ml 700 ml CXR: 01/20 Tracheostomy, left arm PICC, left chest tube, moderate right pleural effusion versus thickening, right greater than left interstitial and airspace opacities, cardiomegaly are all unchanged. Colt Keen MD 01/23/202047: Critical Care - Asmt/Plan Assessment/Plan: Patient seen and examined with [employer] INSTALLER and I agree with the above formulated assessment and plan. Time Spent (Minutes): 40 - cc Luz Bowen [employer] INST[employer]ER Jan 22, 2020 10:02 Colt Keen MD Jan 23, 2020 20:48
[2020-01-22] MEDS: Metoprolol Tartrate 50mg tab GT SCH ×2 (10:03→20:56)
[2020-01-22] MEDS: Bacitracin Oint 15gm Tube TOPIC SCH ×2 (10:04→20:59)
--- NOTE | 2020-01-22 10:49 | Surgery Progress Note ---
Surgery Progress Note Subjective Procedure Performed left tube thoracotomy Additional Comments cxr reviewed plan removal chest tube today no n/v lab snoted Objective Last 24 Hour Vital Signs Date Time Temp Pulse Resp B/P (MAP) Pulse Ox O2 Delivery O2 Flow Rate FiO2 01/22/20 10:31 101.4 01/22/20 10:03 156 112/78 01/22/20 09:00 130 27 80/60 (67) 96 01/22/20 08:00 142 01/22/20 08:00 140 26 128/68 (88) 99 01/22/20 07:30 141 28 132/70 (90) 01/22/20 07:24 152 27 100 Mechanical Ventilator 50 132 29 50 01/22/20 07:00 145 27 135/66 (89) 99 01/22/20 06:30 139 28 135/92 (106) 98 01/22/20 06:00 136 29 132/68 (89) 98 01/22/20 05:30 137 29 144/96 (112) 98 01/22/20 05:00 132 30 134/61 (85) 100 01/22/20 04:30 139 30 106/70 (82) 95 01/22/20 04:00 134 01/22/20 04:00 98.4 139 28 121/75 (90) 98 01/22/20 04:00 50 01/22/20 04:00 Mechanical Ventilator 01/22/20 03:30 132 29 100/87 (91) 98 01/22/20 03:08 133 31 50 01/22/20 03:00 136 30 128/68 (88) 99 01/22/20 02:00 120 30 120/67 (84) 95 01/22/20 01:30 112 27 122/62 (82) 96 01/22/20 01:05 108 29 100 Mechanical Ventilator 50 104 25 50 01/22/20 01:00 107 21 127/61 (83) 97 01/22/20 00:30 105 28 130/66 (87) 99 01/22/20 00:00 100 01/22/20 00:00 Mechanical Ventilator 01/22/20 00:00 98.0 102 29 118/63 (81) 99 01/22/20 00:00 50 01/21/20 23:30 98 29 103/50 (67) 99 10/12/20 23:00 101 30 107/56 (73) 99 01/21/20 22:49 100 31 50 01/21/20 22:30 100 30 127/63 (84) 98 01/21/20 22:00 97 29 103/65 (78) 99 01/21/20 21:30 103 29 115/83 (94) 98 01/21/20 21:00 105 29 117/88 (98) 97 01/21/20 20:45 125 29 120/79 (93) 99 01/21/20 20:30 98 29 115/80 (92) 98 01/21/20 20:20 131 133/51 01/21/20 20:15 115 29 126/70 (88) 99 01/21/20 20:00 98.2 121 29 110/76 (87) 99 01/21/20 20:00 119 01/21/20 20:00 Mechanical Ventilator 01/21/20 20:00 50 01/21/20 19:27 107 28 99 Mechanical Ventilator 50 113 27 50 01/21/20 19:00 121 29 107/74 (85) 99 01/21/20 18:00 122 31 118/66 (83) 94 01/21/20 17:30 120 27 115/49 (71) 96 01/21/20 17:00 117 29 121/62 (81) 92 01/21/20 16:30 111 27 112/65 (81) 95 01/21/20 16:15 114 27 112/72 (85) 95 01/21/20 16:00 120 31 112/65 (81) 100 01/21/20 16:00 99.4 113 28 124/66 (85) 93 01/21/20 16:00 119 01/21/20 16:00 Mechanical Ventilator 01/21/20 16:00 50 01/21/20 15:30 111 27 116/61 (79) 96 01/21/20 15:19 106 29 50 01/21/20 15:10 101 29 105/67 96 01/21/20 15:00 108 29 113/65 (81) 96 01/21/20 14:30 110 29 116/64 (81) 96 01/21/20 14:18 101 29 105/67 96 01/21/20 14:00 101 29 105/67 (80) 96 01/21/20 13:30 98 29 104/57 (73) 97 01/21/20 13:25 100 28 96 Mechanical Ventilator 50 100 28 50 01/21/20 13:00 103 28 108/48 (68) 96 01/21/20 12:30 106 30 103/51 (68) 97 01/21/20 12:08 100.3 01/21/20 12:00 Mechanical Ventilator 01/21/20 12:00 50 01/21/20 12:00 101.2 105 28 109/51 (70) 97 01/21/20 11:45 111 29 108/56 (73) 97 01/21/20 11:30 117 29 108/56 (73) 97 01/21/20 11:25 113 01/21/20 11:15 115 28 112/50 (70) 96 01/21/20 11:00 117 27 112/57 (75) 97 I&O Intake and Output 01/21/20 01/22/20 19:00 07:00 Intake Total 2343.120 ml 2790.334 ml Output Total 1400 ml 700 ml Balance 943.120 ml 2090.334 ml Free Water 200 ml 600 ml IV Total 1663.120 ml 1710.334 ml Tube Feeding 480 ml 480 ml Output Urine Total 1400 ml 700 ml Dressing: saturated, other Wound: other Cardiovascular: RSR Respiratory: decreased breath sounds Abdomen: soft, non-tender, present bowel sounds Extremities: edema, cyanosis, no tenderness Laboratory Tests Test 01/21/20 12:40 01/21/20 12:51 01/22/20 03:50 01/22/20 08:29 Lactic Acid Level 1.90 mmol/L (0.4-2.0) 2.70 mmol/L (0.4-2.0) H Urine Color Norma Urine Appearance Slightly cloudy Urine pH 5 (4.5-8.0) Urine Specific [place] 1.015 (1.005-1.035) Urine Protein 1+ (NEGATIVE) H Urine Glucose (UA) Negative (NEGATIVE) Urine Ketones Negative (NEGATIVE) Urine Blood Negative (NEGATIVE) Urine Nitrite Negative (NEGATIVE) Urine Bilirubin Negative (NEGATIVE) Urine Ictotest Negative (NEGATIVE) Urine Urobilinogen 4 MG/DL (0.0-1.0) H Urine Leukocyte Esterase 1+ (NEGATIVE) H Urine RBC 0 /HPF (0 - 2) Urine WBC 2-4 /HPF (0 - 2) Urine Squamous Epithelial Cells Few /LPF (NONE/OCC) Urine Bacteria Occasional /HPF (NONE) Urine Yeast Few /HPF (NONE) H White Blood Count 7.2 K/UL (4.8-10.8) Red Blood Count 2.40 M/UL (4.20-5.40) L Hemoglobin 7.0 G/DL (12.0-16.0) L Hematocrit 22.1 % (37.0-47.0) L Mean Corpuscular Volume 92 FL (80-99) Mean Corpuscular Hemoglobin 29.3 PG (27.0-31.0) Mean Corpuscular Hemoglobin Concent 31.9 G/DL (32.0-36.0) L Red Cell Distribution Width 18.8 % (11.6-14.8) H Platelet Count 192 K/UL (150-450) Mean Platelet Volume 7.7 FL (6.5-10.1) Neutrophils (%) (Auto) % (45.0-75.0) Lymphocytes (%) (Auto) % (20.0-45.0) Monocytes (%) (Auto) % (1.0-10.0) Eosinophils (%) (Auto) % (0.0-3.0) Basophils (%) (Auto) % (0.0-2.0) Differential Total Cells Counted 100 Neutrophils % (Manual) 74 % (45-75) Lymphocytes % (Manual) 13 % (20-45) L Monocytes % (Manual) 4 % (1-10) Eosinophils % (Manual) 0 % (0-3) Basophils % (Manual) 0 % (0-2) Myelocytes % 1 % (0-0) H Band Neutrophils 8 % (0-8) Platelet Estimate Adequate Platelet Morphology Normal Anisocytosis 1+ Sodium Level 135 MMOL/L (136-145) L Potassium Level 5.4 MMOL/L (3.5-5.1) H Chloride Level 105 MMOL/L (98-107) Carbon Dioxide Level 21 MMOL/L (21-32) Anion Gap 9 mmol/L (5-15) Blood Urea Nitrogen 42 mg/dL (7-18) H Creatinine 1.9 MG/DL (0.55-1.30) H Estimat Glomerular Filtration Rate 26.3 mL/min (>60) Glucose Level 160 MG/DL (74-106) H Calcium Level 8.3 MG/DL (8.5-10.1) L Phosphorus Level 3.8 MG/DL (2.5-4.9) Magnesium Level 2.6 MG/DL (1.8-2.4) H Arterial Blood pH 7.389 (7.350-7.450) Arterial Blood Partial Pressure CO2 34.0 mmHg (35.0-45.0) L Arterial Blood Partial Pressure O2 105.3 mmHg (75.0-100.0) H Arterial Blood HCO3 20.1 mmol/L (22.0-26.0) L Arterial Blood Oxygen Saturation 95.2 % (95-100) Arterial Blood Base Excess -4.4 (-2-2) L Eugene Test Positive Plan Problems: (1) Urinary tract infection (2) CHF exacerbation (3) History of schizophrenia (4) Atrial fibrillation with RVR (5) Schizophrenia (6) GERD (gastroesophageal reflux disease) (7) Smoker (8) Atrial fibrillation with rapid ventricular response (9) Lymphadema (10) COPD (chronic obstructive pulmonary disease) (11) CKD (chronic kidney disease) stage 3, GFR 30-59 ml/min (12) NATALIE (acute kidney injury) (13) Dehydration (14) Dysphagia (15) UTI (urinary tract infection) (16) UGI bleed (17) ESBL (extended spectrum beta-lactamase) producing bacteria infection (18) Constipation (19) Lactic acidosis (20) Tinea cruris (21) Onychomycosis (22) Emesis (23) Essential hypertension (24) Anemia (25) Cough (26) Depression (27) Depression (28) Edema (29) Rash (30) Opiate dependence (31) Opiate dependence (32) Opiate dependence (33) Opiate dependence (34) Pyelonephritis (35) Sepsis (36) UTI (urinary tract infection) (37) Nausea and vomiting (38) Abdominal pain Assessment & Plan: [age]-year-old female obese white abdominal pain deep tissue injury identified limited mobility on HD. KUB noted tube in place continue meds feeds Does not seem obstructed We will monitor lines noted. plan change resume tube feeds labs okay FINDINGS: Lower thorax: Obscuration of the left costophrenic angle suggestive of pleural effusion. Intraperitoneal space: No free air. Gastrointestinal tract: Unremarkable. No dilation. Bones/joints: Unremarkable. Tubes, lines and devices: The nasogastric tube has the tip at the mid inferior aspect of the gastric body. Other findings: Nonspecific gas pattern. Single frontal view of the abdomen demonstrates tip of the enteric tube and distal side-port projecting over the stomach. Gas is identified within the nondistended large bowel. There is a paucity of small bowel gas seen. Partially visualized left pleural effusion. No other significant interval change. (39) Chest pain (40) Chest pain (41) Nausea (42) Obesity (43) Chronic ulcer of leg (44) Chronic ulcer of leg (45) Chronic ulcer of leg (46) ACS (acute coronary syndrome) (47) Acute chest pain (48) Encounter for dressing change or suture removal (49) Left leg cellulitis (50) Acute encephalopathy (51) Encounter for wound re-check (52) Intractable nausea and vomiting (53) Infection due to ESBL-producing Escherichia coli (54) Chronic venous stasis (55) Change of dressing (56) Change of dressing (57) Change of dressing (58) Change of dressing (59) Change of dressing (60) Change of dressing (61) Change of dressing (62) Change of dressing (63) ESBL urine (64) Lymphadema (65) Lymphedema (66) Lymphedema (67) Lymphedema (68) Lymphedema (69) Lymphedema (70) Lymphedema (71) Lymphedema (72) Lymphedema (73) Open wound of foot (74) Open wound of foot (75) cellulitis (76) chronic lymphedema (77) chronic lymphedema (78) chronic lymphedema (79) hypertension uncontrolled (80) hypertension uncontrolled (81) Intertrigo (82) Sciatica (83) Cellulitis (84) Schizophrenia (85) Chronic bronchitis (86) HTN (hypertension) (87) Venous stasis ulcers (88) Medication refill (89) Chest pain, atypical (90) BMI 45.0-49.9, adult (91) Lymphedema of both lower extremities (92) hypertension uncontrolled (93) hypertension uncontrolled (94) hypertension uncontrolled (95) tenia corpus (96) Deep tissue injury Assessment & Plan: Morbidly obese pt whom presented on admission with Pressure injuries, Edemae bilat lower extremities eschar to dorsal aspects of metatarsals. Pt is very demanding of staff and can be resistive to repositioning. DTPI noted to L Sacrum(L)5.5cm x (W)2.5cm. Base of Pressure Injury is Maroon and indurated with surrounding non-blanchable erythema DTPI R Sacrum(L)5.5cm x (W)2.3cm. Base of Pressure Injury is maroon with purpuric center that is fluctuant. Pt complained of tenderness when minimally palpated. Bilat lower extremities are edematous . Dry eschar noted to nail matrix and tip of L 1st metatarsal, Dorsal L 2nd metatarsal, R 2nd and R 4th metatarsals. Both heels are boggy with non-Blanchable erythema. blisters forming on Right lower extremity anterior tibia. not infected cellulitis / edema on b/l le stable cont abx Tx.Plan: Apply Moisture Barrier Paste to Sacrum R and L gluteal cheeks. Cover with Optifoam drsgs. Change every 3 days and prn. Apply Betadine to dry eschar metatarsals both feet Daily. Apply Cavilon Skin Barrier to both heels. Cover each heel with Optifoam drsgs. Change every 7days and prn. Reposition at least every 2hours or as tolerated. Off-load heels with pillow. right leg hematoma stable critically ill and edema on right leg has compromised dermis over the hematoma. will likely need debridement once improved (97) COVID-19 Assessment & Plan: ++ on vent weaning abx as per ID (98) Respiratory failure Assessment & Plan: not able to wean safely will plan for trach case discussed with medical team, pulm, icu. recommended to trach given medical condition. medically indicated and recommended. s/p trach 01/08 s/p trach more comfortable less agitated on vent weaning here is complete or near complete opacification of left hemithorax. There is increasing pleural fluid on the right. Interstitial and airspace disease on the right is unchanged. Tracheostomy is again demonstrated Impression: Complete or near complete opacification left hemithorax. This may indicate rapidly accumulating pleural effusion, versus atelectatic left lung. chest tube 01/17 left chest tube to water seal am cxr (99) Pneumonia Juan Manuel Buckner Jan 22, 2020 10:49
--- NOTE | 2020-01-22 11:00 | NUR ---
NURSE NOTES: Heart rate remains in a-fibb ranging from 100-115, remains on Cardizem drip at 15mg/hr, tube feeding remains running at 40ml/hr. Lockett remains draining clear light doretha urine.
[2020-01-22] MEDS: Multivitamins W/Minerals 15 ML UDC GT SCH (11:39)
--- NOTE | 2020-01-22 12:03 | Diagnostic Imaging Report ---
Indication: Shortness of breath Technique: One view of the chest Comparison: 01/21/2020 Findings: Left chest tube is again demonstrated. There is suggestion of slightly increased right pleural effusion, although apparent increase may in part be an artifact of increased patient rotation. Generalized mild congestive changes bilaterally are stable. Tracheostomy remains. Impression: Possibly increased right pleural effusion. Otherwise little change control specialist one day
--- NOTE | 2020-01-22 13:15 | NUR ---
NURSE NOTES: Dr. Buckner removed chest tube at the bedside, dressing applied and remains dry an intact.
--- NOTE | 2020-01-22 13:39 | NUR ---
RADIOLOGY DEPT., CHEST X-RAY DONE.-P.DYE
--- NOTE | 2020-01-22 13:45 | NUR ---
NURSE NOTES: Dr. orellana updated on patient urine output and condition, restarted lasix IVP every 8hrs. no other orders given at this time.
--- NOTE | 2020-01-22 13:53 | General Progress Note ---
Subjective ROS Limited/Unobtainable: Yes Allergies: Coded Allergies: ERYTHROMYCIN BASE (Verified Allergy, Severe, 12/12/19) HALOPERIDOL (Verified Allergy, Unknown, 12/12/19) VANCOMYCIN (Unverified Adverse Reaction, Intermediate, Shortness of Breath, 12/12/19) Objective Last 24 Hour Vital Signs Date Time Temp Pulse Resp B/P (MAP) Pulse Ox O2 Delivery O2 Flow Rate FiO2 01/22/20 13:00 89 28 120/73 (89) 96 01/22/20 12:30 95 28 118/63 (81) 97 01/22/20 12:01 100.0 95 18 106/73 (84) 97 01/22/20 12:00 102 01/22/20 12:00 Mechanical Ventilator 01/22/20 12:00 50 01/22/20 12:00 95 18 106/73 (84) 97 01/22/20 11:30 107 25 128/69 (88) 96 01/22/20 11:00 155 31 Mechanical Ventilator 50 01/22/20 11:00 110 29 132/76 (94) 95 01/22/20 10:31 101.4 01/22/20 10:30 140 29 127/68 (87) 96 01/22/20 10:03 156 112/78 01/22/20 10:00 161 25 112/78 (89) 97 01/22/20 09:30 143 21 115/73 (87) 95 01/22/20 09:00 130 27 80/60 (67) 96 01/22/20 08:00 142 01/22/20 08:00 101.8 140 26 128/68 (88) 99 01/22/20 08:00 Mechanical Ventilator 01/22/20 08:00 50 01/22/20 07:30 141 28 132/70 (90) 01/22/20 07:24 152 27 100 Mechanical Ventilator 50 132 29 50 01/22/20 07:00 145 27 135/66 (89) 99 01/22/20 06:30 139 28 135/92 (106) 98 01/22/20 06:00 136 29 132/68 (89) 98 01/22/20 05:30 137 29 144/96 (112) 98 01/22/20 05:00 132 30 134/61 (85) 100 01/22/20 04:30 139 30 106/70 (82) 95 10/13/20 04:00 134 01/22/20 04:00 98.4 139 28 121/75 (90) 98 01/22/20 04:00 50 01/22/20 04:00 Mechanical Ventilator 01/22/20 03:30 132 29 100/87 (91) 98 01/22/20 03:08 133 31 50 01/22/20 03:00 136 30 128/68 (88) 99 01/22/20 02:00 120 30 120/67 (84) 95 01/22/20 01:30 112 27 122/62 (82) 96 01/22/20 01:05 108 29 100 Mechanical Ventilator 50 104 25 50 01/22/20 01:00 107 21 127/61 (83) 97 01/22/20 00:30 105 28 130/66 (87) 99 01/22/20 00:00 100 01/22/20 00:00 Mechanical Ventilator 01/22/20 00:00 98.0 102 29 118/63 (81) 99 01/22/20 00:00 50 01/21/20 23:30 98 29 103/50 (67) 99 01/21/20 23:00 101 30 107/56 (73) 99 01/21/20 22:49 100 31 50 01/21/20 22:30 100 30 127/63 (84) 98 01/21/20 22:00 97 29 103/65 (78) 99 01/21/20 21:30 103 29 115/83 (94) 98 01/21/20 21:00 105 29 117/88 (98) 97 01/21/20 20:45 125 29 120/79 (93) 99 01/21/20 20:30 98 29 115/80 (92) 98 01/21/20 20:20 131 133/51 01/21/20 20:15 115 29 126/70 (88) 99 01/21/20 20:00 98.2 121 29 110/76 (87) 99 01/21/20 20:00 119 01/21/20 20:00 Mechanical Ventilator 01/21/20 20:00 50 01/21/20 19:27 107 28 99 Mechanical Ventilator 50 113 27 50 01/21/20 19:00 121 29 107/74 (85) 99 01/21/20 18:00 122 31 118/66 (83) 94 01/21/20 17:30 120 27 115/49 (71) 96 01/21/20 17:00 117 29 121/62 (81) 92 01/21/20 16:30 111 27 112/65 (81) 95 01/21/20 16:15 114 27 112/72 (85) 95 01/21/20 16:00 120 31 112/65 (81) 100 01/21/20 16:00 99.4 113 28 124/66 (85) 93 01/21/20 16:00 119 01/21/20 16:00 Mechanical Ventilator 01/21/20 16:00 50 01/21/20 15:30 111 27 116/61 (79) 96 01/21/20 15:19 106 29 50 01/21/20 15:10 101 29 105/67 96 01/21/20 15:00 108 29 113/65 (81) 96 01/21/20 14:30 110 29 116/64 (81) 96 01/21/20 14:18 101 29 105/67 96 01/21/20 14:00 101 29 105/67 (80) 96 Intake and Output 01/21/20 01/22/20 19:00 07:00 Intake Total 2343.120 ml 2790.334 ml Output Total 1400 ml 700 ml Balance 943.120 ml 2090.334 ml Free Water 200 ml 600 ml IV Total 1663.120 ml 1710.334 ml Tube Feeding 480 ml 480 ml Output Urine Total 1400 ml 700 ml Laboratory Tests 01/22/20 03:50: White Blood Count 7.2, Red Blood Count 2.40L, Hemoglobin 7.0L, Hematocrit 22.1L, Mean Corpuscular Volume 92, Mean Corpuscular Hemoglobin 29.3, Mean Corpuscular Hemoglobin Concent 31.9L, Red Cell Distribution Width 18.8H, Platelet Count 192, Mean Platelet Volume 7.7, Neutrophils (%) (Auto) , Lymphocytes (%) (Auto) , Monocytes (%) (Auto) , Eosinophils (%) (Auto) , Basophils (%) (Auto) , Differential Total Cells Counted 100, Neutrophils % (Manual) 74, Lymphocytes % (Manual) 13L, Monocytes % (Manual) 4, Eosinophils % (Manual) 0, Basophils % (Manual) 0, Myelocytes % 1H, Band Neutrophils 8, Platelet Estimate Adequate, Platelet Morphology Normal, Anisocytosis 1+, Sodium Level 135L, Potassium Level 5.4H, Chloride Level 105, Carbon Dioxide Level 21, Anion Gap 9, Blood Urea Nitrogen 42H, Creatinine 1.9H, Estimat Glomerular Filtration Rate 26.3, Glucose Level 160H, Lactic Acid Level 2.70H, Calcium Level 8.3L, Phosphorus Level 3.8, Magnesium Level 2.6H 01/22/20 08:29: Arterial Blood pH 7.389, Arterial Blood Partial Pressure CO2 34.0L, Arterial Blood Partial Pressure O2 105.3H, Arterial Blood HCO3 20.1L, Arterial Blood Oxygen Saturation 95.2, Arterial Blood Base Excess -4.4L, Eugene Test Positive Height (Feet): 5 Height (Inches): 6.00 Weight (Pounds): 343 General Appearance: morbidly obese, other - trach vent Neck: normal alignment Cardiovascular: regularly irregular Respiratory/Chest: rhonchi - bilaterally Abdomen: non tender Edema: moderate edema Neurologic: unresponsive Assessment/Plan Problem List: (1) Schizophrenia ICD Codes: F20.9 - Schizophrenia, unspecified SNOMED: 09567716 (2) GERD (gastroesophageal reflux disease) ICD Codes: K21.9 - Gastro-esophageal reflux disease without esophagitis SNOMED: 500862347 (3) Lymphadema (4) Smoker ICD Codes: F17.200 - Nicotine dependence, unspecified, uncomplicated SNOMED: 64476667 (5) Atrial fibrillation with rapid ventricular response ICD Codes: I48.91 - Unspecified atrial fibrillation SNOMED: 068874182771470 (6) CKD (chronic kidney disease) stage 3, GFR 30-59 ml/min ICD Codes: N18.3 - Chronic kidney disease, stage 3 (moderate) SNOMED: 011211434 (7) NATALIE (acute kidney injury) ICD Codes: N17.9 - Acute kidney failure, unspecified SNOMED: 2120433, 04035163 (8) COPD (chronic obstructive pulmonary disease) ICD Codes: J44.9 - Chronic obstructive pulmonary disease, unspecified SNOMED: 36672706 (9) UGI bleed ICD Codes: K92.2 - Gastrointestinal hemorrhage, unspecified SNOMED: 59544790 (10) Dysphagia ICD Codes: R13.10 - Dysphagia, unspecified SNOMED: 23629847, 347393417 (11) UTI (urinary tract infection) ICD Codes: N39.0 - Urinary tract infection, site not specified SNOMED: 78177396 (12) ESBL (extended spectrum beta-lactamase) producing bacteria infection ICD Codes: A49.9 - Bacterial infection, unspecified; Z16.12 - Extended spectrum beta lactamase (ESBL) resistance SNOMED: 914700359 (13) Dehydration ICD Codes: E86.0 - Dehydration SNOMED: 32748003 (14) CHF exacerbation ICD Codes: I50.9 - Heart failure, unspecified SNOMED: 372851971, 34113076429550 (15) Acute respiratory failure ICD Codes: J96.00 - Acute respiratory failure, unspecified whether with hypoxia or hypercapnia SNOMED: 95945689 (16) COVID-19 ICD Codes: U07.1 - COVID-19 SNOMED: 971226265 (17) Pneumonia ICD Codes: J18.9 - Pneumonia, unspecified organism SNOMED: 202776691 Qualifiers: (18) Hematoma of lower leg ICD Codes: S80.10XA - Contusion of unspecified lower leg, initial encounter SNOMED: 563152642 (19) CKD (chronic kidney disease) stage 3, GFR 30-59 ml/min ICD Codes: N18.3 - Chronic kidney disease, stage 3 (moderate) SNOMED: 056013454 (20) Pancytopenia ICD Codes: D61.818 - Other pancytopenia SNOMED: 766485883 Status: stable Assessment/Plan: resp distress, icu, trach, vent, natalie on ckd,,now stable, I/O reviewed, hematoma RLE stop eliquis , lovenox now iv protonix, rx esbl and + vre uti,g+ cocci , remains high risk, d/w psych, ID, cardiology, ,covid neg prior positive this admission now neg, , grave prognosis, fungemia treated with micafungin likely will be unable to wean for a long time, agitated when tried to wean , ,all lab and orders reviewed , no active bleeding , low Hb tolerates, pancytopenia stable may be from sepsis or meds(remdesivir, chlorpromazine, micafungin, linezolid), posssible primary BM disease, wbc and platelets a bit better now, to observe ,immunofixation ordered,negative, also anemia of renal disease start epogen, hypernatremia and free water gt, , Na better restart lasix , increase 100 mg q 8 hr as+ +fluid balance, titrate sedatives , some distress and now on 100% FIO2, cxr complete opacification of the left thorax. afib rate 130+ restart cardizem drip, better now, high K hold kcl will improve with lasix Interval worsening airspace opacities throughout the right lung. pleural fluid esbl on meropoenam, cardizem +metoprolol , s/p thoracentesis , chest tube reemoved icu time 35 min Benjamin Dumont MD Jan 22, 2020 13:53
--- NOTE | 2020-01-22 14:45 | NUR ---
NURSE NOTES: Dr. Beasley updated on patient fever from this morning, assessed patient at the bedside and will change route of medications for Bactrim, no verbal orders given at this time.
--- NOTE | 2020-01-22 15:24 | Infectious Diseases Prog Note ---
Assessment/Plan Assessment/Plan ASSESSMENT AND PLAN: 1. MDR acinetobacter pna - S-minocycline, I-colistin, polymyxin hx esbl e.coli uti/pyelonephritis, sepsis, leukocytosis, fevers mrsa and vre colonization, NATALIE, respiratory distress/failure Fungemia - + yeast in blood - s/p micafungin, surveillance blood cultures negative hx mrsa pna/acinetobacter pna hx VRE uti covid-19 infection right leg swelling and redness noted, ? cellulitis, ? infected hematoma, ? wound infection esbl empyema, + yeast/enterococcus, s/p chest tube but now removed - minocycline, meropenem, zyvox, micafungin - s/p remdesivir, s/p dexamethasone - monitor labs and chest x-ray, monitor fevers - ? debridement right leg per surgery when patient stable - d/w surgery, no intervention at this time - d/w RN 2. Chronic kidney failure, acute renal failure. 3. COPD. 4. Pulmonary followup. 5. Renal followup. 6. History of falls. 7. Atrial fibrillation. Cardiology followup. 8. Obesity. 9. Gait disorder. 10. Schizophrenia. 11. Homeless. 12. Allergic to erythromycin, haloperidol, and vancomycin. 13. Social history is negative. 14. Family history is noncontributory. 15. MAR is noted. 16. Case discussed with RN. 17. Continue treatment per Dr. Dumont and consultants. Subjective Constitutional: Reports: fever, other - trach/vent HEENT: Reports: congestion Respiratory: Reports: shortness of breath Gastrointestinal/Abdominal: Denies: nausea, vomiting, diarrhea Genitourinary: Reports: other - + trivedi Neurologic: Reports: weakness Psychiatric: Reports: other - NA Skin: Denies: rash Hematologic: Denies: bleeding Musculoskeletal: Reports: other - NA Allergies: Coded Allergies: ERYTHROMYCIN BASE (Verified Allergy, Severe, 12/12/19) HALOPERIDOL (Verified Allergy, Unknown, 12/12/19) VANCOMYCIN (Unverified Adverse Reaction, Intermediate, Shortness of Breath, 12/12/19) Objective Last 24 Hour Vital Signs Date Time Temp Pulse Resp B/P (MAP) Pulse Ox O2 Delivery O2 Flow Rate FiO2 01/22/20 14:15 92 26 100 Mechanical Ventilator 50 94 26 01/22/20 14:00 88 29 112/74 (87) 99 10/13/20 13:00 89 28 120/73 (89) 96 01/22/20 12:30 95 28 118/63 (81) 97 01/22/20 12:01 100.0 95 18 106/73 (84) 97 01/22/20 12:00 102 01/22/20 12:00 Mechanical Ventilator 01/22/20 12:00 50 01/22/20 12:00 95 18 106/73 (84) 97 01/22/20 11:30 107 25 128/69 (88) 96 01/22/20 11:00 155 31 Mechanical Ventilator 50 01/22/20 11:00 110 29 132/76 (94) 95 01/22/20 10:31 101.4 01/22/20 10:30 140 29 127/68 (87) 96 01/22/20 10:03 156 112/78 01/22/20 10:00 161 25 112/78 (89) 97 01/22/20 09:30 143 21 115/73 (87) 95 01/22/20 09:00 130 27 80/60 (67) 96 01/22/20 08:00 142 01/22/20 08:00 101.8 140 26 128/68 (88) 99 01/22/20 08:00 Mechanical Ventilator 01/22/20 08:00 50 01/22/20 07:30 141 28 132/70 (90) 01/22/20 07:24 152 27 100 Mechanical Ventilator 50 132 29 50 01/22/20 07:00 145 27 135/66 (89) 99 01/22/20 06:30 139 28 135/92 (106) 98 01/22/20 06:00 136 29 132/68 (89) 98 01/22/20 05:30 137 29 144/96 (112) 98 01/22/20 05:00 132 30 134/61 (85) 100 01/22/20 04:30 139 30 106/70 (82) 95 01/22/20 04:00 134 01/22/20 04:00 98.4 139 28 121/75 (90) 98 01/22/20 04:00 50 01/22/20 04:00 Mechanical Ventilator 01/22/20 03:30 132 29 100/87 (91) 98 01/22/20 03:08 133 31 50 01/22/20 03:00 136 30 128/68 (88) 99 10/13/20 02:00 120 30 120/67 (84) 95 01/22/20 01:30 112 27 122/62 (82) 96 01/22/20 01:05 108 29 100 Mechanical Ventilator 50 104 25 50 01/22/20 01:00 107 21 127/61 (83) 97 01/22/20 00:30 105 28 130/66 (87) 99 01/22/20 00:00 100 01/22/20 00:00 Mechanical Ventilator 01/22/20 00:00 98.0 102 29 118/63 (81) 99 01/22/20 00:00 50 01/21/20 23:30 98 29 103/50 (67) 99 01/21/20 23:00 101 30 107/56 (73) 99 01/21/20 22:49 100 31 50 01/21/20 22:30 100 30 127/63 (84) 98 01/21/20 22:00 97 29 103/65 (78) 99 01/21/20 21:30 103 29 115/83 (94) 98 01/21/20 21:00 105 29 117/88 (98) 97 01/21/20 20:45 125 29 120/79 (93) 99 01/21/20 20:30 98 29 115/80 (92) 98 01/21/20 20:20 131 133/51 01/21/20 20:15 115 29 126/70 (88) 99 01/21/20 20:00 98.2 121 29 110/76 (87) 99 01/21/20 20:00 119 01/21/20 20:00 Mechanical Ventilator 01/21/20 20:00 50 01/21/20 19:27 107 28 99 Mechanical Ventilator 50 113 27 50 01/21/20 19:00 121 29 107/74 (85) 99 01/21/20 18:00 122 31 118/66 (83) 94 01/21/20 17:30 120 27 115/49 (71) 96 01/21/20 17:00 117 29 121/62 (81) 92 01/21/20 16:30 111 27 112/65 (81) 95 01/21/20 16:15 114 27 112/72 (85) 95 01/21/20 16:00 120 31 112/65 (81) 100 01/21/20 16:00 99.4 113 28 124/66 (85) 93 01/21/20 16:00 119 01/21/20 16:00 Mechanical Ventilator 01/21/20 16:00 50 01/21/20 15:30 111 27 116/61 (79) 96 01/21/20 15:19 106 29 50 Height (Feet): 5 Height (Inches): 6.00 Weight (Pounds): 343 General Appearance: other - + trach and vent HEENT: normocephalic, atraumatic, anicteric Respiratory/Chest: crackles/rales, rhonchi - bilaterally Cardiovascular: normal rate, regular rhythm, no gallop/murmur Abdomen: normal bowel sounds, soft, non tender, no organomegaly, non distended Genitourinary: other - + trivedi - urine cloudy Extremities: no cyanosis Skin: no rash Neurologic/Psychiatric: rubber thread spooler II-XII grossly normal, alert, responsive Lymphatic: no neck adenopathy Musculoskeletal: no effusion Chest x-ray - 11/17/19 - Procedure: XRAY Chest 1v Indication: Shortness of breath Technique: One view of the chest Comparison: 12/17/2019 Findings: The heart is enlarged. There is bilateral interstitial and airspace disease is again demonstrated, probably unchanged allowing for differences in degree of inspiration. Impression: Unchanged, over one day, findings as above. Chest x-ray - 12/21/19 - Procedure: XRAY Chest 1v Indication: Shortness of breath Technique: One view of the chest Comparison: 12/19/2019 Findings: The heart is enlarged. Bilateral extensive infiltrates are again demonstrated, stable to slightly worse allowing for differences in exposure technique. There is suggestion of increasing pleural fluid on the left. Nasogastric tube is again demonstrated. Impression: Stable to worsened bilateral extensive infiltrates, since exam of 2 days prior Increasing left pleural effusion Chest x-ray - 12/23/19 - IMPRESSION: 1. No significant interval change from the prior chest x-ray. 2. Persistent moderate left pleural effusion and mild right pleural effusion. 3. Pulmonary vascular congestion. 4. Persistent opacity in the left lung base, which may represent atelectasis versus pneumonia. Chest x-ray - 12/25/19 - Procedure: XRAY Chest 1v Procedure: XRAY Chest 1v Reason for study: Reason For Exam: SOB Comparison films: 12/24/2019. FINDINGS: The tracheal tube and NG tube remain in place. Vascular prominence and bilateral hazy alveolar densities are unchanged. Cardiomegaly and small effusions also unchanged. The bony thorax appear unremarkable. IMPRESSION: NO SIGNIFICANT CHANGE COMPARED TO PREVIOUS EXAM. 12/26/19 - Procedure: XRAY Chest 1v Procedure: XRAY Chest 1v Reason for study: Reason For Exam: SOB Comparison films: 12/25/2019. FINDINGS: Endotracheal tube and NG tube remain in place. Hazy bilateral alveolar densities are essentially unchanged given the difference in technique. Cardiomegaly and right effusion again noted. The bony thorax appear unremarkable. IMPRESSION: NO SIGNIFICANT CHANGE COMPARED TO PREVIOUS EXAM. Chest x-ray - 12/28/19 - Procedure: XRAY Chest 1v Indication: Reason For Exam: SOB Technique: Single AP view of the chest. Comparison: Chest radiograph dated 12/27/2019 Findings: Exam is again noted to be diagnostically limited due to underpenetration, patient rotation, and exclusion of part of the left hemithorax from the [id number]. Within these limitations: No significant change in appearance of visualized cardiomediastinal silhouette. Unchanged layering right pleural effusion with associated basilar airspace opacities. Likely retrocardiac consolidation, unchanged. No apical pneumothoraces. Unchanged enteric and endotracheal tubes. Unchanged left PICC. Chest x-ray - 12/30/19 - FINDINGS: Distal tip of ET tube is above devika. Distal tip of the enteric tube is in stomach. Stable left arm PICC line with distal tip likely in the left subclavian vein. Cardiac silhouette is within normal limits allowing for portable and rotated technique. Low lung volumes with elevated left hemidiaphragm. Again noted is a moderate right effusion with patchy infiltrates in the right mid to lower lung. Probable retrocardiac infiltrates. IMPRESSION: Little interval change in moderate right effusion and pneumonia/aspiration. Suspected retrocardiac infiltrate. The distal tip of the left arm PICC line is not well seen past the level of the left mid subclavian vein. [place] location is in the cavoatrial junction. Recommend advancement. <MYCVCSECTION> Chest x-ray - 01/04/20 - Procedure: XRAY Chest 1v Indication: Dyspnea Technique: One view of the chest Comparison: 01/02/2020 Findings: Bilateral interstitial and airspace congestion, right pleural effusion, cardiomegaly persists, unchanged. Tube and line positions are unchanged Impression: Unchanged, over one day, findings as above. Chest x-ray - 01/06/20 - IMPRESSION: 1. Endotracheal tube terminates in the region of the lower thoracic trachea, approximately 2.6 cm above the devika. Enteric tube is difficult to visualize distally. 2. Similar opacities predominantly in the mid and lower lungs which may represent combination of pleural effusions and atelectasis versus pneumonia versus edema. Chest x-ray - 01/07/20 - Procedure: XRAY Chest 1v Indication: Shortness of breath Technique: One view of the chest Comparison: 01/06/2020 Findings: Stable satisfactory positions of endotracheal and orogastric tubes. Mild interstitial congestion and hazy ankle opacities are again demonstrated bilaterally. There appears to be a small amount of pleural fluid bilaterally, probably unchanged. Impression: Unchanged, over one day, findings as above. Chest x-ray - 01/10/20 - Procedure: XRAY Chest 1v Indication: There is a breath Technique: One view of the chest Comparison: 01/08/2020 Findings: Interim conversion of endotracheal tube to a tracheostomy, appearing well positioned. Orogastric tube remains. Bilateral interstitial and airspace infiltrates versus edema persists, unchanged. Small bilateral pleural effusions persist, unchanged. Impression: Interim tracheostomy placement. No radiographically evident complication Stable bilateral pleural and parenchymal disease Chest x-ray - 01/13/20 - FINDINGS/IMPRESSION: Midline tracheostomy tube. Left upper extremity PICC line terminates in the left brachycephalic vein, unchanged. Mild-moderate vascular congestion, which is mildly increased when compared to January 10, 2020. Moderate left pleural effusion, which has mildly increased when compared to January 10, 2020. No pneumothorax. Cardiomegaly. Calcified aorta. Chest x-ray - 01/16/20 - Procedure: XRAY Chest 1v Indication: Shortness of breath Technique: One view of the chest Comparison: 01/15/2020 Findings: Bilateral interstitial and airspace infiltrates versus edema appears slightly increased from the prior exam. Right pleural effusion appears slightly increased. Left pleural fluid probably present, smaller than the right, stable. The heart remains enlarged. Tracheostomy, left arm PICC remain. Impression: Slightly increased pulmonary infiltrates versus edema and right pleural effusion, over one day Chest x-ray - 01/20/20 - Procedure: XRAY Chest 1v INDICATION: status post tracheostomy. COMPARISON: Same day chest radiograph at 7:51 Findings/impression: Single portable frontal view demonstrates a tracheostomy. There are low lung volumes. Again identified is complete opacification of the left thorax. Interval worsening airspace opacities throughout the right lung. Small to moderate right pleural effusion. Stable cardiomegaly. No clinically significant pneumothorax. Unchanged positioning of the left upper extremity PICC line. Chest x-ray - 01/22/20 - Procedure: XRAY Chest 1v Indication: Shortness of breath Technique: One view of the chest Comparison: 01/21/2020 Findings: Left chest tube is again demonstrated. There is suggestion of slightly increased right pleural effusion, although apparent increase may in part be an artifact of increased patient rotation. Generalized mild congestive changes bilaterally are stable. Tracheostomy remains. Impression: Possibly increased right pleural effusion. Otherwise little cell changer one day Microbiology Date/Time Source Procedure Growth Status 01/21/20 12:51 Indwelling Cath Urine Culture - Preliminary NO GROWTH AFTER 24 HOURS Resulted 01/18/20 04:00 Nasopharynx Coronavirus COVID-19 PCR ([facility]) - Final Complete 01/16/20 15:25 Body Fluid AFB Specimen Processing Tissue - Final Resulted 01/16/20 15:25 Body Fluid Acid Fast Bacilli Smear - Final Resulted 01/16/20 15:25 Body Fluid Acid Fast Bacilli Culture Pending Resulted 01/15/20 05:33 Blood Blood Culture - Final NO GROWTH AFTER 5 DAYS Complete 01/11/20 04:20 Stool Clostridium difficile Toxin Assay - Final Complete 12/12/19 21:00 Rectum - Final NO CARBAPENEM-RESISTANT ENTEROBACTERI... Complete Microbiology Date/Time Source Procedure Growth Status 01/21/20 12:51 Indwelling Cath Urine Culture - Preliminary NO GROWTH AFTER 24 HOURS Resulted Laboratory Tests Test 01/22/20 03:50 01/22/20 08:29 White Blood Count 7.2 K/UL (4.8-10.8) Red Blood Count 2.40 M/UL (4.20-5.40) L Hemoglobin 7.0 G/DL (12.0-16.0) L Hematocrit 22.1 % (37.0-47.0) L Mean Corpuscular Volume 92 FL (80-99) Mean Corpuscular Hemoglobin 29.3 PG (27.0-31.0) Mean Corpuscular Hemoglobin Concent 31.9 G/DL (32.0-36.0) L Red Cell Distribution Width 18.8 % (11.6-14.8) H Platelet Count 192 K/UL (150-450) Mean Platelet Volume 7.7 FL (6.5-10.1) Neutrophils (%) (Auto) % (45.0-75.0) Lymphocytes (%) (Auto) % (20.0-45.0) Monocytes (%) (Auto) % (1.0-10.0) Eosinophils (%) (Auto) % (0.0-3.0) Basophils (%) (Auto) % (0.0-2.0) Differential Total Cells Counted 100 Neutrophils % (Manual) 74 % (45-75) Lymphocytes % (Manual) 13 % (20-45) L Monocytes % (Manual) 4 % (1-10) Eosinophils % (Manual) 0 % (0-3) Basophils % (Manual) 0 % (0-2) Myelocytes % 1 % (0-0) H Band Neutrophils 8 % (0-8) Platelet Estimate Adequate Platelet Morphology Normal Anisocytosis 1+ Sodium Level 135 MMOL/L (136-145) L Potassium Level 5.4 MMOL/L (3.5-5.1) H Chloride Level 105 MMOL/L (98-107) Carbon Dioxide Level 21 MMOL/L (21-32) Anion Gap 9 mmol/L (5-15) Blood Urea Nitrogen 42 mg/dL (7-18) H Creatinine 1.9 MG/DL (0.55-1.30) H Estimat Glomerular Filtration Rate 26.3 mL/min (>60) Glucose Level 160 MG/DL (74-106) H Lactic Acid Level 2.70 mmol/L (0.4-2.0) H Calcium Level 8.3 MG/DL (8.5-10.1) L Phosphorus Level 3.8 MG/DL (2.5-4.9) Magnesium Level 2.6 MG/DL (1.8-2.4) H Arterial Blood pH 7.389 (7.350-7.450) Arterial Blood Partial Pressure CO2 34.0 mmHg (35.0-45.0) L Arterial Blood Partial Pressure O2 105.3 mmHg (75.0-100.0) H Arterial Blood HCO3 20.1 mmol/L (22.0-26.0) L Arterial Blood Oxygen Saturation 95.2 % (95-100) Arterial Blood Base Excess -4.4 (-2-2) L [place] Test Positive Current Medications Medications (Trade) Dose Ordered Sig/Shiraz Route PRN Reason Start Time Stop Time Status Last Admin Dose Admin Acetaminophen (Tylenol) 650 mg Q4H PRN GT Mild Pain (Pain Scale 1-3) 01/12/20 10:00 02/11/20 09:59 01/21/20 11:38 Acetaminophen (Tylenol) 650 mg Q4H PRN GT Temp >100.5 01/12/20 10:00 02/11/20 09:59 01/22/20 09:13 Acetazolamide (Diamox) 500 mg EVERY 12 HOURS GT 01/17/20 21:00 02/01/20 17:59 01/22/20 09:12 Acetylcysteine (Mucomyst) 200 mg Q6HRT HHN 01/19/20 13:30 04/18/20 13:29 01/22/20 14:16 Albuterol Sulfate (Proventil MDI) 2 puff Q4H PRN INH Shortness of Breath 12/24/19 10:30 03/23/20 10:29 01/12/20 09:44 Ascorbic Acid (Vitamin C) 500 mg BEDTIME GT 01/17/20 21:00 02/16/20 20:59 01/21/20 20:19 Bacitracin (Bacitracin 15gm tube) 1 applic EVERY 12 HOURS TOPIC 01/16/20 11:00 04/15/20 10:59 01/22/20 10:04 Chlorhexidine Gluconate (Jessie-Hex 2%) 1 applic DAILY@1999 TOPIC 12/24/19 20:00 03/23/20 19:59 01/21/20 20:19 Clotrimazole (Lotrimin) 1 applic EVERY 12 HOURS TOPIC 01/05/20 09:00 03/12/20 08:59 01/22/20 10:04 Diltiazem HCl 125 ml @ 0 mls/hr Q24H IVPB 01/22/20 11:30 01/23/20 11:29 01/22/20 11:38 Docusate Sodium (Colace) 100 mg EVERY 12 HOURS GT 01/17/20 09:00 01/24/20 08:59 01/22/20 09:11 Enoxaparin Sodium (Lovenox) 60 mg DAILY SUBQ 01/13/20 12:00 04/12/20 11:59 01/21/20 08:13 Epoetin Cristiano (Epoetin Cristiano-EPBX(NON ESRD)) 10,000 unit TUE-TUE-TUE SUBQ 01/23/20 21:00 04/22/20 20:59 Furosemide (Lasix) 100 mg Q8HR IV 01/22/20 14:00 02/21/20 13:59 01/22/20 14:26 Ipratropium [place] (Atrovent) 500 mcg Q6H PRN HHN Shortness of Breath 01/19/20 13:30 01/24/20 13:29 01/22/20 14:16 Linezolid 300 ml @ 300 mls/hr EVERY 12 HOURS IVPB 01/19/20 21:00 01/26/20 20:59 01/22/20 09:11 Lorazepam (Ativan) 1 mg Q6H PRN GT For Anxiety 01/22/20 00:30 01/29/20 00:29 Meropenem 1 gm/ Sodium Chloride 100 ml @ 200 mls/hr Q12H IVPB 01/19/20 16:00 01/24/20 15:59 01/22/20 04:45 Metoclopramide HCl (Reglan) 5 mg Q6H IVP 01/05/20 09:15 02/04/20 09:14 01/22/20 14:26 Metoprolol Tartrate (Lopressor) 100 mg EVERY 12 HOURS GT 01/21/20 09:00 04/20/20 08:59 01/22/20 10:03 Micafungin Sodium 100 mg/Sodium Chloride 100 ml @ 100 mls/hr Q24H IVPB 01/20/20 19:00 01/27/20 18:59 01/21/20 18:15 Multivitamins (Multivitamins W/ Minerals 15ml Liquid) 15 ml Q24H GT 01/18/20 11:00 02/17/20 10:59 01/22/20 11:39 Pantoprazole (Protonix) 40 mg EVERY 12 HOURS IVP 01/01/20 21:00 01/31/20 20:59 01/22/20 09:12 Polyethylene Glycol (Miralax) 17 gm BEDTIME GT 01/17/20 21:00 01/28/20 20:59 01/21/20 20:19 Quetiapine Fumarate (SEROqueL) 125 mg EVERY 8 HOURS GT 01/22/20 06:00 03/07/20 05:59 01/22/20 14:26 Trimethoprim/ Sulfamethoxazole 15 ml/Dextrose 565 ml @ 376.667 mls/hr [id number] BACTRIM IV 01/17/20 20:00 01/24/20 19:59 01/22/20 14:25 Aleisha Coronel MD Jan 22, 2020 15:24
--- NOTE | 2020-01-22 16:03 | Operative Note - PDOC ---
Operative Note Operative Note Pre-op Diagnosis: respiratory insufficiency covid + increased oxygen requirement complete left opacification Procedure: left tube thoracotomy Post-op Diagnosis: same as pre-op Surgeon: mary samaniego Anesthesia: local Specimen: none Complications: none Condition: stable Fluids: none Estimated Blood Loss: minimal Drains: other Implant(s) used?: No Description of Procedure patient made comfortable bedside. left arm raised. chest tube suture cut and removed without complication. dressings applied. cxr ordered Mary Buckner Jan 22, 2020 16:03
--- NOTE | 2020-01-22 16:56 | NUR ---
NURSE NOTES: oral care provided and repositioned, blood transfusion remains on hold due to temperature remaining at 99.7. will monitor temperature.
--- NOTE | 2020-01-22 17:08 | NUR ---
CASE MANAGEMENT:REVIEW SI;RESPIRATORY FAILURE. FUNGEMIA. UTI. 101.8 152 31 80/60 96% TRACH/VENT FIO2 @ 40% H/H 7.0/22.1 NA 135 K+ 5.4 BUN 42 CR 1.9 LAC ACID 2.70 MAG 2.6 IS;MEROPENEM IV Q12 LASIX IV Q8 DILTIAZEM IV Q24 LOPRESSOR GT Q12 MICAFUNGIN IV Q24 LINEZOLID IV Q12 MUCOMYST HHN Q6HRT ATROVENT HHN Q6 PRN BACTRIM DS IV Q6 ICU STATUS DCP;LTACH REFERRAL
--- NOTE | 2020-01-22 17:14 | NUR ---
INSURANCE CLINICALS AND REVIEW FAXED TO [facility] P: [phone] F: [phone]
--- NOTE | 2020-01-22 17:19 | NUR ---
*-*DISCHARGE PLANNING*-* PATIENT HAS BEEN REFERRED TO: [facility] P: [phone]
--- NOTE | 2020-01-22 19:30 | NUR ---
NURSE NOTES: Received pt respond to pain stimuli, trache to vent on ac mode, Afib on the monitor with RVR at this time, On Cardizem drip at 15mg/hr infusing to MARBELLA PICC line, site with drsg dry and intact, Tolerated fdg at this time with acceptable residuals, hOB kept elevated, On aspiration precaution, RT leg drsg dry nd intact . Pt has DTI RT buttocks on P 200 mattress, Turned for comfort and to avoid further skin breakdown. Will continue to monitor.
[2020-01-22] MEDS: Dyna-Hex 2% Top Sol 2oz TOPIC SCH (19:43)
--- NOTE | 2020-01-22 19:45 | NUR ---
NURSE HAND-OFF REPORT: Latest Vital Signs: Temperature 99.7 , Pulse 112 , B/P 119 /74 , Respiratory Rate 19 , O2 SAT 98 , Mechanical Ventilator, O2 Flow Rate . Vital Sign Comment: EKG Rhythm: Atrial Fibrillation Rhythm change?: N Notified?: N -MD Gaviota UNDERWOOD Response: Latest Abreu Fall Score: 75 Fall Risk: High Risk Safety Measures: Call light Within Reach, Bed Alarm Zone 1, Side Rails Side Rails x3, Bed position Low and Locked. Fall Precautions: Yellow Socks Yellow Gown Door Sign Patient Fall Education Report given to NOEL Silverio.
--- NOTE | 2020-01-22 20:00 | NUR ---
NURSE NOTES: Transfuse 1 unit PRBC unit no. [id number] . Temp 98.6F, watch for any blood reaction.
[2020-01-22] MEDS: Minocycline HCl 50mg cap ORAL SCH (20:55)
[2020-01-22] MEDS: Ascorbic Acid 500mg tab GT SCH (20:56)
[2020-01-22] MEDS: Miralax 17gm pkt GT SCH (20:56)
--- NOTE | 2020-01-22 22:15 | NUR ---
NURSE NOTES: 1 unit PRbC was finished, pt tolerating well./ No reactions noted.
--- NOTE | 2020-01-22 23:49 | Cardiology Progress Note ---
Subjective DATE OF SERVICE: Jan 22, 2020 Doing poorly - remains in ICU in critical condition with guarded prognosis. Now s/p left thoracotomy. Remains on vent support - s/p trach. BP range remaining low normal range. Remains COVID19 positive. Monitor: AFIb with poor rate control; now on IV cardizem again and BBlocker. Venous Duplex: negative for DVT Renal fxn, electrolyte abnormalities, and free water deficit worsening Objective Last 24 Hour Vital Signs Date Time Temp Pulse Resp B/P (MAP) Pulse Ox O2 Delivery O2 Flow Rate FiO2 01/22/20 22:30 102 26 50 01/22/20 21:30 120 26 137/73 (94) 95 01/22/20 21:00 129 29 144/70 (94) 88 01/22/20 20:56 121 127/67 01/22/20 20:30 127 27 133/68 (89) 96 01/22/20 20:00 Mechanical Ventilator 01/22/20 20:00 50 01/22/20 20:00 126 01/22/20 20:00 98.6 116 28 133/72 (92) 95 01/22/20 19:30 121 27 124/61 (82) 96 01/22/20 19:00 112 19 119/74 (89) 98 01/22/20 18:49 115 28 97 Mechanical Ventilator 50 111 25 50 01/22/20 18:00 105 24 132/69 (90) 97 01/22/20 17:30 102 28 126/64 (84) 97 01/22/20 17:00 107 24 134/76 (95) 97 01/22/20 16:30 103 26 127/70 (89) 96 01/22/20 16:01 99.7 105 22 127/70 (89) 96 01/22/20 16:00 105 22 127/70 (89) 96 01/22/20 16:00 103 01/22/20 16:00 50 01/22/20 16:00 Mechanical Ventilator 01/22/20 15:30 97 27 122/73 (89) 97 01/22/20 15:10 92 23 50 01/22/20 15:00 96 28 114/65 (81) 97 01/22/20 14:30 93 28 120/64 (82) 99 01/22/20 14:15 92 26 100 Mechanical Ventilator 50 94 26 01/22/20 14:00 88 29 112/74 (87) 99 01/22/20 13:30 87 26 108/69 (82) 98 01/22/20 13:00 89 28 120/73 (89) 96 01/22/20 12:30 95 28 118/63 (81) 97 01/22/20 12:01 100.0 95 18 106/73 (84) 97 01/22/20 12:00 102 01/22/20 12:00 Mechanical Ventilator 01/22/20 12:00 50 01/22/20 12:00 95 18 106/73 (84) 97 01/22/20 11:30 107 25 128/69 (88) 96 01/22/20 11:00 155 31 Mechanical Ventilator 50 01/22/20 11:00 110 29 132/76 (94) 95 01/22/20 10:31 101.4 01/22/20 10:30 140 29 127/68 (87) 96 01/22/20 10:03 156 112/78 01/22/20 10:00 161 25 112/78 (89) 97 01/22/20 09:30 143 21 115/73 (87) 95 01/22/20 09:00 130 27 80/60 (67) 96 01/22/20 08:00 142 01/22/20 08:00 101.8 140 26 128/68 (88) 99 01/22/20 08:00 Mechanical Ventilator 01/22/20 08:00 50 01/22/20 07:30 141 28 132/70 (90) 01/22/20 07:24 152 27 100 Mechanical Ventilator 50 132 29 50 01/22/20 07:00 145 27 135/66 (89) 99 01/22/20 06:30 139 28 135/92 (106) 98 01/22/20 06:00 136 29 132/68 (89) 98 01/22/20 05:30 137 29 144/96 (112) 98 01/22/20 05:00 132 30 134/61 (85) 100 01/22/20 04:30 139 30 106/70 (82) 95 01/22/20 04:00 134 01/22/20 04:00 98.4 139 28 121/75 (90) 98 01/22/20 04:00 50 01/22/20 04:00 Mechanical Ventilator 01/22/20 03:30 132 29 100/87 (91) 98 01/22/20 03:08 133 31 50 01/22/20 03:00 136 30 128/68 (88) 99 01/22/20 02:00 120 30 120/67 (84) 95 01/22/20 01:30 112 27 122/62 (82) 96 01/22/20 01:05 108 29 100 Mechanical Ventilator 50 104 25 50 01/22/20 01:00 107 21 127/61 (83) 97 01/22/20 00:30 105 28 130/66 (87) 99 01/22/20 00:00 100 01/22/20 00:00 Mechanical Ventilator 01/22/20 00:00 98.0 102 29 118/63 (81) 99 01/22/20 00:00 50 ROS: unchanged from 12/12/19 HEENT: Orally intubated, Mechanically Ventilated, Thin secretions ET Tube, other - NGtube RHYTHM: NSR, ST LUNGS: diminished breath sounds, right-sided rhonchi CARDIAC: normal S1 and S2, irregularly irregular ABDOMEN: other - obese EXTREMITIES: moderate edema - mostly non pitting, other - hematoma right leg Laboratory Tests Test 01/22/20 03:50 01/22/20 08:29 White Blood Count 7.2 K/UL (4.8-10.8) Red Blood Count 2.40 M/UL (4.20-5.40) L Hemoglobin 7.0 G/DL (12.0-16.0) L Hematocrit 22.1 % (37.0-47.0) L Mean Corpuscular Volume 92 FL (80-99) Mean Corpuscular Hemoglobin 29.3 PG (27.0-31.0) Mean Corpuscular Hemoglobin Concent 31.9 G/DL (32.0-36.0) L Red Cell Distribution Width 18.8 % (11.6-14.8) H Platelet Count 192 K/UL (150-450) Mean Platelet Volume 7.7 FL (6.5-10.1) Neutrophils (%) (Auto) % (45.0-75.0) Lymphocytes (%) (Auto) % (20.0-45.0) Monocytes (%) (Auto) % (1.0-10.0) Eosinophils (%) (Auto) % (0.0-3.0) Basophils (%) (Auto) % (0.0-2.0) Differential Total Cells Counted 100 Neutrophils % (Manual) 74 % (45-75) Lymphocytes % (Manual) 13 % (20-45) L Monocytes % (Manual) 4 % (1-10) Eosinophils % (Manual) 0 % (0-3) Basophils % (Manual) 0 % (0-2) Myelocytes % 1 % (0-0) H Band Neutrophils 8 % (0-8) Platelet Estimate Adequate Platelet Morphology Normal Anisocytosis 1+ Sodium Level 135 MMOL/L (136-145) L Potassium Level 5.4 MMOL/L (3.5-5.1) H Chloride Level 105 MMOL/L (98-107) Carbon Dioxide Level 21 MMOL/L (21-32) Anion Gap 9 mmol/L (5-15) Blood Urea Nitrogen 42 mg/dL (7-18) H Creatinine 1.9 MG/DL (0.55-1.30) H Estimat Glomerular Filtration Rate 26.3 mL/min (>60) Glucose Level 160 MG/DL (74-106) H Lactic Acid Level 2.70 mmol/L (0.4-2.0) H Calcium Level 8.3 MG/DL (8.5-10.1) L Phosphorus Level 3.8 MG/DL (2.5-4.9) Magnesium Level 2.6 MG/DL (1.8-2.4) H Arterial Blood pH 7.389 (7.350-7.450) Arterial Blood Partial Pressure CO2 34.0 mmHg (35.0-45.0) L Arterial Blood Partial Pressure O2 105.3 mmHg (75.0-100.0) H Arterial Blood HCO3 20.1 mmol/L (22.0-26.0) L Arterial Blood Oxygen Saturation 95.2 % (95-100) Arterial Blood Base Excess -4.4 (-2-2) L Eugene Test Positive Microbiology Date/Time Source Procedure Growth Status 01/21/20 12:51 Indwelling Cath Urine Culture - Preliminary NO GROWTH AFTER 24 HOURS Resulted Assessment/Plan Assessment/Plan CRITICAL AND GUARDED Left lung opacification - s/p left thoracotomy, with chest tube just removed. Acute respiratory failure - s/p trach Acute on chronic respiratory acidosis AFiB with labile heart rates, and now persistent RVR. CHF, ac/chr diastolic BLE edema Sepsis with shock obesity COPD with bronchospasm Acute renal failure - worsening Pleural effusion GI bleeding Anemia - multifactorial, now worse Covid 19 PNA Hyperkalemia Recurring lactic acidosis Dehydration/hypernatremia Hypertension/HHD with labile BP - now stable range. Vent support Titrate beta yves and transition IV to oral diltiazem dosing. Hold diuretic dosing; acetazolamide discont'd as well. Consider PRBC transfusion for hb below 7gm/dl Monitor acid/base parameters. 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
[2020-01-23] VITALS (36 sets, daily range): BP systolic 107–143; BP diastolic 52–103
--- NOTE | 2020-01-23 | NUR ---
NURSE NOTES: Pt had x1 soft brownish stool. cleaned up pt.
--- NOTE | 2020-01-23 00:20 | Psych Consult Progress Note ---
Psychiatry Progress Note Psychiatry Progress Note Subjective the pt is still pancytopenic the pt is not agitated the pt lethargic Medications Current Medications Medications (Trade) Dose Ordered Sig/Shiraz Route PRN Reason Start Time Stop Time Status Last Admin Dose Admin Acetaminophen (Tylenol) 650 mg Q4H PRN GT Mild Pain (Pain Scale 1-3) 01/12/20 10:00 02/11/20 09:59 01/21/20 11:38 Acetaminophen (Tylenol) 650 mg Q4H PRN GT Temp >100.5 01/12/20 10:00 02/11/20 09:59 01/22/20 09:13 Acetylcysteine (Mucomyst) 200 mg Q6HRT HHN 01/19/20 13:30 04/18/20 13:29 01/22/20 18:49 Albuterol Sulfate (Proventil MDI) 2 puff Q4H PRN INH Shortness of Breath 12/24/19 10:30 03/23/20 10:29 01/12/20 09:44 Ascorbic Acid (Vitamin C) 500 mg BEDTIME GT 01/17/20 21:00 02/16/20 20:59 01/22/20 20:56 Bacitracin (Bacitracin 15gm tube) 1 applic EVERY 12 HOURS TOPIC 01/16/20 11:00 04/15/20 10:59 01/22/20 20:59 Chlorhexidine Gluconate (Jessie-Hex 2%) 1 applic DAILY@1999 TOPIC 12/24/19 20:00 03/23/20 19:59 01/22/20 19:43 Clotrimazole (Lotrimin) 1 applic EVERY 12 HOURS TOPIC 01/05/20 09:00 03/12/20 08:59 01/22/20 21:00 Diltiazem HCl 125 ml @ 0 mls/hr Q24H IVPB 01/22/20 11:30 01/23/20 11:29 01/22/20 20:18 Docusate Sodium (Colace) 100 mg EVERY 12 HOURS GT 01/17/20 09:00 01/24/20 08:59 01/22/20 20:54 Enoxaparin Sodium (Lovenox) 60 mg DAILY SUBQ 01/13/20 12:00 04/12/20 11:59 01/21/20 08:13 Epoetin Cristiano (Epoetin Cristiano-EPBX(NON ESRD)) 10,000 unit TUE-TUE-TUE SUBQ 01/23/20 21:00 04/22/20 20:59 Furosemide (Lasix) 100 mg Q8HR IV 01/22/20 14:00 02/21/20 13:59 01/22/20 21:57 Ipratropium Louise (Atrovent) 500 mcg Q6H PRN HHN Shortness of Breath 01/19/20 13:30 01/24/20 13:29 01/22/20 18:49 Linezolid 300 ml @ 300 mls/hr EVERY 12 HOURS IVPB 01/19/20 21:00 01/26/20 20:59 01/22/20 20:58 Lorazepam (Ativan) 1 mg Q6H PRN GT For Anxiety 01/22/20 00:30 01/29/20 00:29 Meropenem 1 gm/ Sodium Chloride 100 ml @ 200 mls/hr Q12H IVPB 01/22/20 16:00 01/27/20 15:59 01/22/20 16:05 Metoclopramide HCl (Reglan) 5 mg Q6H IVP 01/05/20 09:15 02/04/20 09:14 01/22/20 20:56 Metoprolol Tartrate (Lopressor) 100 mg EVERY 12 HOURS GT 01/21/20 09:00 04/20/20 08:59 01/22/20 20:56 Micafungin Sodium 100 mg/Sodium Chloride 100 ml @ 100 mls/hr Q24H IVPB 01/20/20 19:00 01/27/20 18:59 01/22/20 19:25 Minocycline HCl (Minocin) 100 mg Q12HR ORAL 01/22/20 21:00 01/29/20 20:59 01/22/20 20:55 Multivitamins (Multivitamins W/ Minerals 15ml Liquid) 15 ml Q24H GT 01/18/20 11:00 02/17/20 10:59 01/22/20 11:39 Pantoprazole (Protonix) 40 mg EVERY 12 HOURS IVP 01/01/20 21:00 01/31/20 20:59 01/22/20 20:56 Polyethylene Glycol (Miralax) 17 gm BEDTIME GT 01/17/20 21:00 01/28/20 20:59 01/22/20 20:56 Quetiapine Fumarate (SEROqueL) 125 mg EVERY 8 HOURS GT 01/22/20 06:00 03/07/20 05:59 01/22/20 21:58 Neurological/Psychiatric: Reports: anxiety, depressed, emotional problems Allergies: Coded Allergies: ERYTHROMYCIN BASE (Verified Allergy, Severe, 12/12/19) HALOPERIDOL (Verified Allergy, Unknown, 12/12/19) VANCOMYCIN (Unverified Adverse Reaction, Intermediate, Shortness of Breath, 12/12/19) Objective Data Height (Feet): 5 Height (Inches): 6.00 Weight (Pounds): 343 General Appearance: no apparent distress, lethargic, morbidly obese, other - trach vent Additional Comments: Assessment/Plan [place] I: seroquel 125 tid ativan 1mg q 8 hrs/prn bilat restraints. Status: stable Status Narrative seroquel 125 tid ativan 1mg q 8 hrs/prn bilat restraints. Assessment/Plan: seroquel 125 tid ativan 1mg q 8 hrs/prn dc bilat restraints. dc midazolam Harris Ballesteros MD Jan 23, 2020 00:20
[2020-01-23] MEDS: Ipratropium 0.02% Inh Soln 2.5ml UD HHN PRN ×4 (01:02→22:46)
[2020-01-23] MEDS: Acetylcysteine 20% Soln 4ml HHN SCH ×5 (01:02→22:46)
[2020-01-23] MEDS: Metoclopramide 10mg/2ml Inj IVP SCH ×4 (03:05→21:13)
--- NOTE | 2020-01-23 04:00 | NUR ---
NURSE NOTES: Complete bed bath with bed changed done.
[2020-01-23] MEDS: dilTIAZem Premix 125mg/125ml 125 ML IVPB SCH ×3 (04:13→22:02)
[2020-01-23 04:47] LABS: HEMATOCRIT 24.3 % (37.0-47.0); HEMOGLOBIN 7.9 G/DL (12.0-16.0); MEAN CORPUSCULAR VOLUME 89 FL (80-99); PLATELET COUNT 210 K/UL (150-450); RED BLOOD COUNT 2.74 M/UL (4.20-5.40); RED CELL DISTRIBUTION WIDTH 18.7 % (11.6-14.8); WHITE BLOOD COUNT 7.1 K/UL (4.8-10.8)
[2020-01-23 05:37] LABS: ALANINE AMINOTRANSFERASE < 6 U/L (12-78); ALBUMIN 1.3 G/DL (3.4-5.0); ALBUMIN/GLOBULIN RATIO 0.2 (1.0-2.7); ALKALINE PHOSPHATASE 76 U/L (46-116); ANION GAP 11 mmol/L (5-15); ASPARTATE AMINO TRANSFERASE 14 U/L (15-37); BILIRUBIN,TOTAL 0.4 MG/DL (0.2-1.0); BLOOD UREA NITROGEN 48 mg/dL (7-18); CALCIUM 8.6 MG/DL (8.5-10.1); CARBON DIOXIDE 22 MMOL/L (21-32); CHLORIDE 104 MMOL/L (98-107); CREATININE 1.7 MG/DL (0.55-1.30); POTASSIUM 4.8 MMOL/L (3.5-5.1); SODIUM 137 MMOL/L (136-145)
--- NOTE | 2020-01-23 06:50 | NUR ---
NURSE NOTES: Suctioned tn meléndez secretions modrate in amt. 02 sat >95%. HOB kept elevated. watch for any resp. distress.
--- NOTE | 2020-01-23 06:52 | NUR ---
NURSE NOTES: Still on Afib 130s Bp stable. Temp 99F
--- NOTE | 2020-01-23 07:30 | NUR ---
NURSE NOTES: Patient received from Abhi COHEN. Patient stable at this time with no s/sx of pain or distress. AOx0 resting at this time. RR even and unlabored on trach shiley 8. Ventilator settings as ordered AC 18 600mL 50% P8. Cardiac sounds benign. Breath sounds diminished, rhoncus. Bowels sounds present. Feeding infusing. Zero residual. Gtube. Generalized edema present with hands +1 and ankles +1. Lockett in place draining well to gravity. LT UA PICC line dressing dry and intact. Patent with fluids TKO to both ports. Restraints on with good ROM, sensation and circulation. Still attempting to grab and pull on devices and grabbing staff when moved. Dependent edema present and previously noted unrelated to restraints. Side rails upx2, bed low and locked.
--- NOTE | 2020-01-23 07:40 | NUR ---
NURSE HAND-OFF REPORT: Latest Vital Signs: Temperature 100.4 , Pulse 139 , B/P 136 /74 , Respiratory Rate 29 , O2 SAT 93 , Mechanical Ventilator, O2 Flow Rate . Vital Sign Comment: EKG Rhythm: Atrial Fibrillation Rhythm change?: N Notified?: N -MD Gaviota UNDERWOOD Response: Latest Abreu Fall Score: 75 Fall Risk: High Risk Safety Measures: Call light Within Reach, Bed Alarm Zone 1, Side Rails Side Rails x3, Bed position Low and Locked. Fall Precautions: Yellow Socks Yellow Gown Door Sign Patient Fall Education Report given to .
[2020-01-23] MEDS ORDERED: Metoprolol Tartrate 5mg/5ml Inj IVP PRN (07:45)
--- NOTE | 2020-01-23 08:37 | NUR ---
RADIOLOGY DEPT., CHEST X-RAY DONE.-P.DYE
[2020-01-23] MEDS: Docusate 100mg/10ml Liq GT SCH ×2 (08:55→21:11)
[2020-01-23] MEDS: Pantoprazole Inj IVP SCH ×2 (08:56→21:12)
[2020-01-23] MEDS: Minocycline HCl 50mg cap ORAL SCH ×2 (08:56→21:12)
[2020-01-23] MEDS: Metoprolol Tartrate 50mg tab GT SCH ×2 (08:57→21:18)
[2020-01-23] MEDS: Enoxaparin 60mg Inj SUBQ SCH (09:02)
--- NOTE | 2020-01-23 10:19 | NUR ---
NURSE NOTES: Call regarding CT of chest. Patient unstable at this time. Will call back to schedule for later.
--- NOTE | 2020-01-23 11:03 | General Progress Note ---
Subjective ROS Limited/Unobtainable: No Allergies: Coded Allergies: ERYTHROMYCIN BASE (Verified Allergy, Severe, 12/12/19) HALOPERIDOL (Verified Allergy, Unknown, 12/12/19) VANCOMYCIN (Unverified Adverse Reaction, Intermediate, Shortness of Breath, 12/12/19) Objective Last 24 Hour Vital Signs Date Time Temp Pulse Resp B/P (MAP) Pulse Ox O2 Delivery O2 Flow Rate FiO2 01/23/20 10:00 108 26 109/60 (76) 97 01/23/20 09:00 40 01/23/20 09:00 133 26 127/56 (79) 97 01/23/20 09:00 Mechanical Ventilator 01/23/20 08:58 125 126/56 01/23/20 08:57 125 126/56 01/23/20 08:00 99.9 135 26 116/61 (79) 96 01/23/20 07:44 139 01/23/20 07:35 141 28 100 Mechanical Ventilator 50 115 30 50 01/23/20 07:00 132 27 121/64 (83) 95 01/23/20 06:00 139 29 136/74 (94) 93 01/23/20 05:30 117 26 112/57 (75) 94 01/23/20 05:00 119 27 114/60 (78) 95 01/23/20 04:57 117 25 110/63 (79) 96 01/23/20 04:30 126 22 141/103 (116) 91 01/23/20 04:12 50 01/23/20 04:00 100.4 126 27 138/66 (90) 94 01/23/20 04:00 Mechanical Ventilator 01/23/20 04:00 125 01/23/20 03:30 118 26 134/85 (101) 95 01/23/20 03:00 114 27 128/70 (89) 94 01/23/20 02:30 110 27 124/72 (89) 94 01/23/20 02:30 123 26 50 01/23/20 02:00 108 26 123/75 (91) 94 01/23/20 01:30 104 29 116/66 (83) 97 01/23/20 01:05 96 27 96 Mechanical Ventilator 50 104 25 50 01/23/20 01:00 105 27 116/66 (83) 96 01/23/20 00:30 99 28 122/73 (89) 96 01/23/20 00:00 Mechanical Ventilator 01/23/20 00:00 99.0 101 27 126/68 (87) 96 01/23/20 00:00 50 01/23/20 00:00 102 01/22/20 23:30 97 28 125/71 (89) 96 01/22/20 23:00 92 28 117/67 (84) 95 01/22/20 22:30 119 26 136/79 (98) 96 01/22/20 22:30 102 26 50 01/22/20 22:15 135 31 159/94 (115) 92 01/22/20 22:00 119 24 131/76 (94) 96 01/22/20 21:30 120 26 137/73 (94) 95 01/22/20 21:00 129 29 144/70 (94) 88 01/22/20 20:56 121 127/67 01/22/20 20:30 127 27 133/68 (89) 96 01/22/20 20:00 Mechanical Ventilator 01/22/20 20:00 50 01/22/20 20:00 126 01/22/20 20:00 98.6 116 28 133/72 (92) 95 01/22/20 19:30 121 27 124/61 (82) 96 01/22/20 19:00 112 19 119/74 (89) 98 01/22/20 18:49 115 28 97 Mechanical Ventilator 50 111 25 50 01/22/20 18:00 105 24 132/69 (90) 97 01/22/20 17:30 102 28 126/64 (84) 97 01/22/20 17:00 107 24 134/76 (95) 97 01/22/20 16:30 103 26 127/70 (89) 96 01/22/20 16:01 99.7 105 22 127/70 (89) 96 01/22/20 16:00 105 22 127/70 (89) 96 01/22/20 16:00 103 01/22/20 16:00 50 01/22/20 16:00 Mechanical Ventilator 01/22/20 15:30 97 27 122/73 (89) 97 01/22/20 15:10 92 23 50 01/22/20 15:00 96 28 114/65 (81) 97 01/22/20 14:30 93 28 120/64 (82) 99 01/22/20 14:15 92 26 100 Mechanical Ventilator 50 94 26 01/22/20 14:00 88 29 112/74 (87) 99 01/22/20 13:30 87 26 108/69 (82) 98 01/22/20 13:00 89 28 120/73 (89) 96 01/22/20 12:30 95 28 118/63 (81) 97 01/22/20 12:01 100.0 95 18 106/73 (84) 97 01/22/20 12:00 102 01/22/20 12:00 Mechanical Ventilator 01/22/20 12:00 50 01/22/20 12:00 95 18 106/73 (84) 97 01/22/20 11:30 107 25 128/69 (88) 96 Intake and Output 01/22/20 01/23/20 19:00 07:00 Intake Total 2586.167 ml 1145 ml Output Total 1370 ml 1780 ml Balance 1216.167 ml -635 ml Free Water 400 ml 300 ml IV Total 1686.167 ml 365 ml Tube Feeding 480 ml 480 ml Other 20 ml Output Urine Total 1370 ml 1780 ml # Bowel Movements 1 2 Laboratory Tests 01/23/20 03:05: White Blood Count 7.1, Red Blood Count 2.74L, Hemoglobin 7.9L, Hematocrit 24.3L, Mean Corpuscular Volume 89, Mean Corpuscular Hemoglobin 29.0, Mean Corpuscular Hemoglobin Concent 32.6, Red Cell Distribution Width 18.7H, Platelet Count 210, Mean Platelet Volume 7.3, Neutrophils (%) (Auto) , Lymphocytes (%) (Auto) , Monocytes (%) (Auto) , Eosinophils (%) (Auto) , Basophils (%) (Auto) , Differential Total Cells Counted 100, Neutrophils % (Manual) 72, Lymphocytes % (Manual) 5L, Monocytes % (Manual) 12H, Eosinophils % (Manual) 2, Basophils % ( Manual) 1, Band Neutrophils 8, Nucleated Red Blood Cells 2, Platelet Estimate Adequate, Platelet Morphology Normal, Anisocytosis 2+, Sodium Level 137, Potassium Level 4.8, Chloride Level 104, Carbon Dioxide Level 22, Anion Gap 11, Blood Urea Nitrogen 48H, Creatinine 1.7H, Estimat Glomerular Filtration Rate 30.0, Glucose Level 122H, Calcium Level 8.6, Total Bilirubin 0.4, Aspartate Amino Transf (AST/SGOT) 14L, Alanine Aminotransferase (ALT/SGPT) < 6L, Alkaline Phosphatase 76, Total Protein 6.8, Albumin 1.3L, Globulin 5.5, Albumin/Globulin Ratio 0.2L Height (Feet): 5 Height (Inches): 6.00 Weight (Pounds): 343 General Appearance: no apparent distress EENT: normal ENT inspection Neck: supple Cardiovascular: normal rate Respiratory/Chest: decreased breath sounds Abdomen: normal bowel sounds, non tender, soft Extremities: non-tender Assessment/Plan Problem List: (1) CKD (chronic kidney disease) stage 3, GFR 30-59 ml/min ICD Codes: N18.3 - Chronic kidney disease, stage 3 (moderate) SNOMED: 441382643 (2) COPD (chronic obstructive pulmonary disease) ICD Codes: J44.9 - Chronic obstructive pulmonary disease, unspecified SNOMED: 57019091 (3) Smoker ICD Codes: F17.200 - Nicotine dependence, unspecified, uncomplicated SNOMED: 39549238 (4) GERD (gastroesophageal reflux disease) ICD Codes: K21.9 - Gastro-esophageal reflux disease without esophagitis SNOMED: 201925024 (5) Atrial fibrillation with RVR ICD Codes: I48.91 - Unspecified atrial fibrillation SNOMED: 048693454831185 Status: stable Assessment/Plan: fu H&H monitor labs bowel regimen fu cardiology recs icu care ppi cbc in am s/p Trach and PEG GTF monitor for residuals Mervin Victoria MD Jan 23, 2020 11:03
--- NOTE | 2020-01-23 11:55 | General Progress Note ---
Subjective ROS Limited/Unobtainable: Yes Allergies: Coded Allergies: ERYTHROMYCIN BASE (Verified Allergy, Severe, 12/12/19) HALOPERIDOL (Verified Allergy, Unknown, 12/12/19) VANCOMYCIN (Unverified Adverse Reaction, Intermediate, Shortness of Breath, 12/12/19) Objective Last 24 Hour Vital Signs Date Time Temp Pulse Resp B/P (MAP) Pulse Ox O2 Delivery O2 Flow Rate FiO2 01/23/20 11:00 107 26 116/74 (88) 96 01/23/20 10:00 108 26 109/60 (76) 97 01/23/20 09:00 40 01/23/20 09:00 133 26 127/56 (79) 97 01/23/20 09:00 Mechanical Ventilator 01/23/20 08:58 125 126/56 01/23/20 08:57 125 126/56 01/23/20 08:00 99.9 135 26 116/61 (79) 96 01/23/20 07:44 139 01/23/20 07:35 141 28 100 Mechanical Ventilator 50 115 30 50 01/23/20 07:00 132 27 121/64 (83) 95 01/23/20 06:00 139 29 136/74 (94) 93 01/23/20 05:30 117 26 112/57 (75) 94 01/23/20 05:00 119 27 114/60 (78) 95 01/23/20 04:57 117 25 110/63 (79) 96 01/23/20 04:30 126 22 141/103 (116) 91 01/23/20 04:12 50 01/23/20 04:00 100.4 126 27 138/66 (90) 94 01/23/20 04:00 Mechanical Ventilator 01/23/20 04:00 125 01/23/20 03:30 118 26 134/85 (101) 95 01/23/20 03:00 114 27 128/70 (89) 94 01/23/20 02:30 110 27 124/72 (89) 94 01/23/20 02:30 123 26 50 01/23/20 02:00 108 26 123/75 (91) 94 01/23/20 01:30 104 29 116/66 (83) 97 01/23/20 01:05 96 27 96 Mechanical Ventilator 50 104 25 50 01/23/20 01:00 105 27 116/66 (83) 96 10/14/20 00:30 99 28 122/73 (89) 96 01/23/20 00:00 Mechanical Ventilator 01/23/20 00:00 99.0 101 27 126/68 (87) 96 01/23/20 00:00 50 01/23/20 00:00 102 01/22/20 23:30 97 28 125/71 (89) 96 01/22/20 23:00 92 28 117/67 (84) 95 01/22/20 22:30 119 26 136/79 (98) 96 01/22/20 22:30 102 26 50 01/22/20 22:15 135 31 159/94 (115) 92 01/22/20 22:00 119 24 131/76 (94) 96 01/22/20 21:30 120 26 137/73 (94) 95 01/22/20 21:00 129 29 144/70 (94) 88 01/22/20 20:56 121 127/67 01/22/20 20:30 127 27 133/68 (89) 96 01/22/20 20:00 Mechanical Ventilator 01/22/20 20:00 50 01/22/20 20:00 126 01/22/20 20:00 98.6 116 28 133/72 (92) 95 01/22/20 19:30 121 27 124/61 (82) 96 01/22/20 19:00 112 19 119/74 (89) 98 01/22/20 18:49 115 28 97 Mechanical Ventilator 50 111 25 50 01/22/20 18:00 105 24 132/69 (90) 97 01/22/20 17:30 102 28 126/64 (84) 97 01/22/20 17:00 107 24 134/76 (95) 97 01/22/20 16:30 103 26 127/70 (89) 96 01/22/20 16:01 99.7 105 22 127/70 (89) 96 01/22/20 16:00 105 22 127/70 (89) 96 01/22/20 16:00 103 01/22/20 16:00 50 01/22/20 16:00 Mechanical Ventilator 01/22/20 15:30 97 27 122/73 (89) 97 01/22/20 15:10 92 23 50 01/22/20 15:00 96 28 114/65 (81) 97 01/22/20 14:30 93 28 120/64 (82) 99 01/22/20 14:15 92 26 100 Mechanical Ventilator 50 94 26 01/22/20 14:00 88 29 112/74 (87) 99 01/22/20 13:30 87 26 108/69 (82) 98 01/22/20 13:00 89 28 120/73 (89) 96 01/22/20 12:30 95 28 118/63 (81) 97 01/22/20 12:01 100.0 95 18 106/73 (84) 97 01/22/20 12:00 102 01/22/20 12:00 Mechanical Ventilator 01/22/20 12:00 50 01/22/20 12:00 95 18 106/73 (84) 97 Intake and Output 01/22/20 01/23/20 19:00 07:00 Intake Total 2586.167 ml 1160 ml Output Total 1370 ml 1780 ml Balance 1216.167 ml -620 ml Free Water 400 ml 300 ml IV Total 1686.167 ml 380 ml Tube Feeding 480 ml 480 ml Other 20 ml Output Urine Total 1370 ml 1780 ml # Bowel Movements 1 2 Laboratory Tests 01/23/20 03:05: White Blood Count 7.1, Red Blood Count 2.74L, Hemoglobin 7.9L, Hematocrit 24.3L, Mean Corpuscular Volume 89, Mean Corpuscular Hemoglobin 29.0, Mean Corpuscular Hemoglobin Concent 32.6, Red Cell Distribution Width 18.7H, Platelet Count 210, Mean Platelet Volume 7.3, Neutrophils (%) (Auto) , Lymphocytes (%) (Auto) , Monocytes (%) (Auto) , Eosinophils (%) (Auto) , Basophils (%) (Auto) , Differential Total Cells Counted 100, Neutrophils % (Manual) 72, Lymphocytes % (Manual) 5L, Monocytes % (Manual) 12H, Eosinophils % (Manual) 2, Basophils % (Manual) 1, Band Neutrophils 8, Nucleated Red Blood Cells 2, Platelet Estimate Adequate, Platelet Morphology Normal, Anisocytosis 2+, Sodium Level 137, Potassium Level 4.8, Chloride Level 104, Carbon Dioxide Level 22, Anion Gap 11, Blood Urea Nitrogen 48H, Creatinine 1.7H, Estimat Glomerular Filtration Rate 30.0, Glucose Level 122H, Calcium Level 8.6, Total Bilirubin 0.4, Aspartate Amino Transf (AST/SGOT) 14L, Alanine Aminotransferase (ALT/SGPT) < 6L, Alkaline Phosphatase 76, Total Protein 6.8, Albumin 1.3L, Globulin 5.5, Albumin/Globulin Ratio 0.2L Height (Feet): 5 Height (Inches): 6.00 Weight (Pounds): 343 General Appearance: morbidly obese, other - trach vent sedated Neck: normal inspection Cardiovascular: regularly irregular, tachycardia Respiratory/Chest: rhonchi - bilaterally Abdomen: non tender Edema: moderate edema Neurologic: unresponsive Assessment/Plan Problem List: (1) Schizophrenia ICD Codes: F20.9 - Schizophrenia, unspecified SNOMED: 02343788 (2) GERD (gastroesophageal reflux disease) ICD Codes: K21.9 - Gastro-esophageal reflux disease without esophagitis SNOMED: 673639946 (3) Lymphadema (4) Smoker ICD Codes: F17.200 - Nicotine dependence, unspecified, uncomplicated SNOMED: 42938712 (5) Atrial fibrillation with rapid ventricular response ICD Codes: I48.91 - Unspecified atrial fibrillation SNOMED: 138183526385508 (6) CKD (chronic kidney disease) stage 3, GFR 30-59 ml/min ICD Codes: N18.3 - Chronic kidney disease, stage 3 (moderate) SNOMED: 204904733 (7) NATALIE (acute kidney injury) ICD Codes: N17.9 - Acute kidney failure, unspecified SNOMED: 4453632, 29082547 (8) COPD (chronic obstructive pulmonary disease) ICD Codes: J44.9 - Chronic obstructive pulmonary disease, unspecified SNOMED: 60629874 (9) UGI bleed ICD Codes: K92.2 - Gastrointestinal hemorrhage, unspecified SNOMED: 88488478 (10) Dysphagia ICD Codes: R13.10 - Dysphagia, unspecified SNOMED: 85130588, 422899257 (11) UTI (urinary tract infection) ICD Codes: N39.0 - Urinary tract infection, site not specified SNOMED: 00239019 (12) ESBL (extended spectrum beta-lactamase) producing bacteria infection ICD Codes: A49.9 - Bacterial infection, unspecified; Z16.12 - Extended spectrum beta lactamase (ESBL) resistance SNOMED: 676380632 (13) Dehydration ICD Codes: E86.0 - Dehydration SNOMED: 54136866 (14) CHF exacerbation ICD Codes: I50.9 - Heart failure, unspecified SNOMED: 854117177, 44268146348071 (15) Acute respiratory failure ICD Codes: J96.00 - Acute respiratory failure, unspecified whether with hypoxia or hypercapnia SNOMED: 98635208 (16) COVID-19 ICD Codes: U07.1 - COVID-19 SNOMED: 247949643 (17) Pneumonia ICD Codes: J18.9 - Pneumonia, unspecified organism SNOMED: 644014567 Qualifiers: (18) Hematoma of lower leg ICD Codes: S80.10XA - Contusion of unspecified lower leg, initial encounter SNOMED: 931085933 (19) CKD (chronic kidney disease) stage 3, GFR 30-59 ml/min ICD Codes: N18.3 - Chronic kidney disease, stage 3 (moderate) SNOMED: 644952265 (20) Pancytopenia ICD Codes: D61.818 - Other pancytopenia SNOMED: 280491257 (21) Malnutrition of moderate degree ICD Codes: E44.0 - Moderate protein-calorie malnutrition SNOMED: 084732788 Status: stable Assessment/Plan: resp distress, icu, trach, vent, natalie on ckd,,now stable, I/O reviewed, hematoma RLE stop eliquis , lovenox now iv protonix, rx esbl and + vre uti,g+ cocci , remains high risk, d/w psych, ID, cardiology, ,covid neg prior positive this admission now neg, , grave prognosis, fungemia treated with micafungin likely will be unable to wean for a long time, agitated when tried to wean , ,all lab and orders reviewed , no active bleeding , low Hb tolerates, pancytopenia stable may be from sepsis or meds(remdesivir, chlorpromazine, alejandro fungin, linezolid), posssible primary BM disease, wbc and platelets a bit better now, to observe ,immunofixation ordered,negative, also anemia of renal disease start epogen, hypernatremia and free water gt, , Na better restart lasix , increase 100 mg q 8 hr as+ +fluid balance, titrate sedatives , some distress and now on 100% FIO2, cxr complete opacification of the left thorax. afib rate 130+ restart cardizem drip, better now,possible change to enteral meds d/w dr vazquez, Interval worsening airspace opacities throughout the right lung. pleural fluid esbl on meropoenam, cardizem +metoprolol , s/p thoracentesis , chest tube removed, still fluid overload increase lasix, low albumin increase tube feed, icu time 35 min Benjamin Dumont MD Jan 23, 2020 11:55
--- NOTE | 2020-01-23 12:00 | NUR ---
NURSE NOTES: Patient stable at this time with no s/sx of pain or distress. Will give tylenol prophylactically since patient has been having low grade fever.
[2020-01-23] MEDS: Bacitracin Oint 15gm Tube TOPIC SCH ×2 (12:05→21:13)
[2020-01-23] MEDS: Multivitamins W/Minerals 15 ML UDC GT SCH (12:31)
[2020-01-23] MEDS: Acetaminophen 650mg/20.3ml GT PRN ×2 (12:33→18:51)
--- NOTE | 2020-01-23 13:11 | Diagnostic Imaging Report ---
Indication: Dyspnea Technique: One view of the chest Comparison: 01/22/2020 Findings: Patient is rotated to the left. Right pleural effusion appears slightly larger than the prior exam. Generalized mild interstitial congestion is again demonstrated. Cardiomegaly persists. Previously demonstrated left chest tube is no longer evident. Tracheostomy remains. There is no pneumothorax Impression: Interim left chest tube removal. No pneumothorax Slightly increased right pleural effusion Other stable findings as described
--- NOTE | 2020-01-23 13:35 | NUR ---
CASE MANAGEMENT:REVIEW SI;RESPIRATORY FAILURE. FUNGEMIA. UTI. 100.4 139 31 141/103 91% TRACH/VENT FIO2 @ 50% H/H 7.9/24.3 BUN 48 CR 1.7 ALB 1.3 IS;LASIX IV Q6 LOPRESSOR IV MEROPENEM IV Q12 MICAFUNGIN IV Q24 LINEZOLID IV Q12 MUCOMYST HHN Q6HRT LOVENOX SUBQ QD REGLAN IV Q6 PROTONIX IV Q12 ICU STATS DCP;FROM HOME PLAN; LTACH REFERRAL
--- NOTE | 2020-01-23 14:00 | NUR ---
NURSE NOTES: Patient stable at this time with no s/sx of pain or distress.
[2020-01-23] MEDS ORDERED: Tubing IV Secondary IV ONE (14:13)
[2020-01-23] MEDS ORDERED: Sterile Water Irrig 1000ml IRRIG ONE (14:13)
[2020-01-23] MEDS ORDERED: NS 275ml ONE (14:13)
--- NOTE | 2020-01-23 14:20 | Pulmonolgy Critical Care Note ---
Luz Bowen LEGAL COMPLIANCE OFFICER 01/23/20 1420: Critical Care - Asmt/Plan Assessment/Plan: ASSESSMENT acute hypoxemic hypercapnic resp failure, requiring intubation 12/22 failure to wean s/p trach 01/08 COVID 19 PNA ( last test NGT) sepsis fungemia empyema s/p L thoracotomy 01/17 UTI with E coli ESBL UTI VRE possible aspiration PNA - s/p treatment Moderate R pleural effusion s/p tap COPD Atrial fibrillation with RVR CHF Acute renal failure on CKD Severe anemia dysphagia, s/p PEG 01/08 Thrombocytopenia Status post ground fall Tobacco dependency Morbid obesity probable GARY R knee edema and hematoma, possible cellulitis Hyper Na due to free water deficit PLAN OF CARE s/p trach, prior not tolerated weaning trials; developed tachycardia /A fib with RVR back on Cardizem gtt , weaning trial on hold s/p tap 01/15 -500 ml pleural fluid pleural fl cx 01/15 E coli ESBL, GPC and yeast , glucose low -> c/w empyema abx as per ID recs -> now Meropenem, Linezolid , Micafungin, Bactrim s/p L thoracotomy 01/[address] in, monitor output -only [address] to Hemovac drainage, then to water seal, eventually was dc 01/21 CXR this am 01/22 -> Interim left chest tube removal. No pneumothorax Slightly increased right pleural effusion ABG stable , acidosis resolved ; FiO2 down to 50% , decrease PEEP to 5 and do ABG in am CT chest pending Mucomyst added to HHN repeated COVID 19 01/14 and 01/17 NGT s/p steroids IV ( started 12/23) continue for total of 10 days till 01/02 s/p Remdesivir (started 12/24 ), dc 12/30 initial diagnoses with COVID 19 at [facility] 11/29, was not hypoxic and not intubated, was not treated with Remdesivivr , only received empiric abx for PNA DVT prophylaxis with Lovenox on diuresis with Lasix, monitor volumes closely creat remains stable consider d/c Diamox afib rate control - s/p Cardizem gtt GI prophylaxis with PPI s/p PEG 01/09, asp precautions, severely leukopenic ? due to meds vs ? primary BM disease -resolving monitor counts immunofixation screen unremarkable transfuse to keep Hgb > 7 , s/p transfusion 01/13 previously evaluated by bioethics -> DNR/DNI status appropriate if not weanable in few days., consider transfer to LTAC for further management case discussed and evaluated by supervising physician Critical Care - Objective Last 24 Hour Vital Signs Date Time Temp Pulse Resp B/P (MAP) Pulse Ox O2 Delivery O2 Flow Rate FiO2 01/23/20 13:00 129 28 112/90 (97) 97 01/23/20 12:00 Mechanical Ventilator 01/23/20 12:00 50 01/23/20 12:00 99.5 111 25 128/53 (78) 96 01/23/20 11:04 108 24 50 01/23/20 11:00 107 26 116/74 (88) 96 01/23/20 10:00 108 26 109/60 (76) 97 01/23/20 09:00 40 01/23/20 09:00 133 26 127/56 (79) 97 01/23/20 09:00 Mechanical Ventilator 01/23/20 08:58 125 126/56 01/23/20 08:57 125 126/56 01/23/20 08:00 99.9 135 26 116/61 (79) 96 01/23/20 07:44 139 01/23/20 07:35 141 28 100 Mechanical Ventilator 50 115 30 50 01/23/20 07:00 132 27 121/64 (83) 95 01/23/20 06:00 139 29 136/74 (94) 93 01/23/20 05:30 117 26 112/57 (75) 94 01/23/20 05:00 119 27 114/60 (78) 95 01/23/20 04:57 117 25 110/63 (79) 96 01/23/20 04:30 126 22 141/103 (116) 91 01/23/20 04:12 50 01/23/20 04:00 100.4 126 27 138/66 (90) 94 01/23/20 04:00 Mechanical Ventilator 01/23/20 04:00 125 01/23/20 03:30 118 26 134/85 (101) 95 01/23/20 03:00 114 27 128/70 (89) 94 01/23/20 02:30 110 27 124/72 (89) 94 01/23/20 02:30 123 26 50 01/23/20 02:00 108 26 123/75 (91) 94 01/23/20 01:30 104 29 116/66 (83) 97 01/23/20 01:05 96 27 96 Mechanical Ventilator 50 104 25 50 01/23/20 01:00 105 27 116/66 (83) 96 01/23/20 00:30 99 28 122/73 (89) 96 01/23/20 00:00 Mechanical Ventilator 01/23/20 00:00 99.0 101 27 126/68 (87) 96 01/23/20 00:00 50 01/23/20 00:00 102 01/22/20 23:30 97 28 125/71 (89) 96 01/22/20 23:00 92 28 117/67 (84) 95 01/22/20 22:30 119 26 136/79 (98) 96 01/22/20 22:30 102 26 50 01/22/20 22:15 135 31 159/94 (115) 92 01/22/20 22:00 119 24 131/76 (94) 96 01/22/20 21:30 120 26 137/73 (94) 95 01/22/20 21:00 129 29 144/70 (94) 88 01/22/20 20:56 121 127/67 01/22/20 20:30 127 27 133/68 (89) 96 01/22/20 20:00 Mechanical Ventilator 01/22/20 20:00 50 01/22/20 20:00 126 01/22/20 20:00 98.6 116 28 133/72 (92) 95 01/22/20 19:30 121 27 124/61 (82) 96 01/22/20 19:00 112 19 119/74 (89) 98 01/22/20 18:49 115 28 97 Mechanical Ventilator 50 111 25 50 01/22/20 18:00 105 24 132/69 (90) 97 01/22/20 17:30 102 28 126/64 (84) 97 01/22/20 17:00 107 24 134/76 (95) 97 01/22/20 16:30 103 26 127/70 (89) 96 01/22/20 16:01 99.7 105 22 127/70 (89) 96 01/22/20 16:00 105 22 127/70 (89) 96 01/22/20 16:00 103 01/22/20 16:00 50 01/22/20 16:00 Mechanical Ventilator 01/22/20 15:30 97 27 122/73 (89) 97 01/22/20 15:10 92 23 50 01/22/20 15:00 96 28 114/65 (81) 97 01/22/20 14:30 93 28 120/64 (82) 99 01/22/20 14:15 92 26 100 Mechanical Ventilator 50 94 26 Objective: CONDITION: critical General Appearance: morbidly obese , sedated, generalized anasarca ; on vent AC 600-18-50 % PEEP 8 Lines, tubes and drains: LUE PICC , intact HEENT: normocephalic, atraumatic, anicteric, Neck: trach with Shiley # 8, secretions moderate amount, yellow color, thick consistency Respiratory/Chest: few isolated rhonchi , tachypneic Cardiovascular/Chest: irregularly irregular - A fib , tachy , distant heart sounds, Abdomen: normal bowel sounds, non tender , obese, soft ; G tube with TF : [place] Extremities: no calf tenderness, moderate edema - +3 BLE, R knee with large hematoma, edema, Skin Exam: warm/dry, multiple tattoos Neurologic: sedated Musculoskeletal: normal muscle bulk Micro: Microbiology Date/Time Source Procedure Growth Status 01/21/20 12:51 Indwelling Cath Urine Culture - Final NO GROWTH AFTER 48 HOURS Complete Accucheck: 136 Critical Care - Subjective ROS Limited/Unobtainable: Yes Interval Events: remains tachycardic and tachypneic on A fib with RVR on tele on Cardizem gtt intermittent fevers CT dc 01/21 ABG stable on curretn settings , acidosis resolved Condition: critical IV Access: PICC - LUE intact EKG Rhythm: Atrial Fibrillation - with RVR FI02: 50 Vent Support Breath Rate: 18 Vent Support Mode: AC Vent Tidal Volume: 600 Sputum Amount: Small PEEP: 8.0 PIP: 36 Drips: Cardizem gtt 15 mg/hr Tube Feeding Amount: 40 I&O: Intake and Output 01/22/20 01/23/20 19:00 07:00 Intake Total 2586.167 ml 1160 ml Output Total 1370 ml 1780 ml Balance 1216.167 ml -620 ml Free Water 400 ml 300 ml IV Total 1686.167 ml 380 ml Tube Feeding 480 ml 480 ml Other 20 ml Output Urine Total 1370 ml 1780 ml # Bowel Movements 1 2 CXR: CXR 01/22 -> Interim left chest tube removal. No pneumothorax Slightly increased right pleural effusion Colt Keen MD 01/23/202048: Critical Care - Asmt/Plan Assessment/Plan: Patient seen and examined with LEGAL COMPLIANCE OFFICER and I agree with the above formulated assessment and plan. Time Spent (Minutes): 40 - cc Luz Bowen NP Jan 23, 2020 14:20 Colt Keen MD Jan 23, 2020 20:49
--- NOTE | 2020-01-23 16:00 | NUR ---
NURSE NOTES: Patient has a fever. Tepid bath given, repositioned and oral care provided and ice packs applied.
--- NOTE | 2020-01-23 17:16 | Surgery Progress Note ---
Surgery Progress Note Subjective Procedure Performed left tube thoracotomy Additional Comments ill appearing on support no n/v cxr noted no ptx since line removal Objective Last 24 Hour Vital Signs Date Time Temp Pulse Resp B/P (MAP) Pulse Ox O2 Delivery O2 Flow Rate FiO2 01/23/20 16:00 100.6 134 24 114/68 (83) 01/23/20 16:00 Mechanical Ventilator 01/23/20 16:00 50 01/23/20 15:55 119 24 100 Mechanical Ventilator 50 135 22 50 01/23/20 15:00 116 22 109/63 (78) 01/23/20 14:00 121 21 122/73 (89) 96 01/23/20 13:00 129 28 112/90 (97) 97 01/23/20 12:00 Mechanical Ventilator 01/23/20 12:00 50 01/23/20 12:00 99.5 111 25 128/53 (78) 96 01/23/20 11:59 109 01/23/20 11:04 108 24 50 01/23/20 11:00 107 26 116/74 (88) 96 01/23/20 10:00 108 26 109/60 (76) 97 01/23/20 09:00 40 01/23/20 09:00 133 26 127/56 (79) 97 01/23/20 09:00 Mechanical Ventilator 01/23/20 08:58 125 126/56 01/23/20 08:57 125 126/56 01/23/20 08:00 99.9 135 26 116/61 (79) 96 01/23/20 07:44 139 01/23/20 07:35 141 28 100 Mechanical Ventilator 50 115 30 50 01/23/20 07:00 132 27 121/64 (83) 95 01/23/20 06:00 139 29 136/74 (94) 93 01/23/20 05:30 117 26 112/57 (75) 94 01/23/20 05:00 119 27 114/60 (78) 95 01/23/20 04:57 117 25 110/63 (79) 96 01/23/20 04:30 126 22 141/103 (116) 91 01/23/20 04:12 50 01/23/20 04:00 100.4 126 27 138/66 (90) 94 01/23/20 04:00 Mechanical Ventilator 01/23/20 04:00 125 01/23/20 03:30 118 26 134/85 (101) 95 01/23/20 03:00 114 27 128/70 (89) 94 01/23/20 02:30 110 27 124/72 (89) 94 01/23/20 02:30 123 26 50 01/23/20 02:00 108 26 123/75 (91) 94 01/23/20 01:30 104 29 116/66 (83) 97 01/23/20 01:05 96 27 96 Mechanical Ventilator 50 104 25 50 01/23/20 01:00 105 27 116/66 (83) 96 01/23/20 00:30 99 28 122/73 (89) 96 01/23/20 00:00 Mechanical Ventilator 01/23/20 00:00 99.0 101 27 126/68 (87) 96 01/23/20 00:00 50 01/23/20 00:00 102 01/22/20 23:30 97 28 125/71 (89) 96 01/22/20 23:00 92 28 117/67 (84) 95 01/22/20 22:30 119 26 136/79 (98) 96 01/22/20 22:30 102 26 50 01/22/20 22:15 135 31 159/94 (115) 92 01/22/20 22:00 119 24 131/76 (94) 96 01/22/20 21:30 120 26 137/73 (94) 95 01/22/20 21:00 129 29 144/70 (94) 88 01/22/20 20:56 121 127/67 01/22/20 20:30 127 27 133/68 (89) 96 01/22/20 20:00 Mechanical Ventilator 01/22/20 20:00 50 01/22/20 20:00 126 01/22/20 20:00 98.6 116 28 133/72 (92) 95 01/22/20 19:30 121 27 124/61 (82) 96 01/22/20 19:00 112 19 119/74 (89) 98 01/22/20 18:49 115 28 97 Mechanical Ventilator 50 111 25 50 01/22/20 18:00 105 24 132/69 (90) 97 01/22/20 17:30 102 28 126/64 (84) 97 I&O Intake and Output 01/22/20 01/23/20 19:00 07:00 Intake Total 2586.167 ml 1160 ml Output Total 1370 ml 1780 ml Balance 1216.167 ml -620 ml Free Water 400 ml 300 ml IV Total 1686.167 ml 380 ml Tube Feeding 480 ml 480 ml Other 20 ml Output Urine Total 1370 ml 1780 ml # Bowel Movements 1 2 Dressing: saturated Cardiovascular: RSR Respiratory: decreased breath sounds Abdomen: soft, non-tender, present bowel sounds Extremities: edema, cyanosis Laboratory Tests Test 01/23/20 03:05 01/23/20 12:00 White Blood Count 7.1 K/UL (4.8-10.8) Red Blood Count 2.74 M/UL (4.20-5.40) L Hemoglobin 7.9 G/DL (12.0-16.0) L Hematocrit 24.3 % (37.0-47.0) L Mean Corpuscular Volume 89 FL (80-99) Mean Corpuscular Hemoglobin 29.0 PG (27.0-31.0) Mean Corpuscular Hemoglobin Concent 32.6 G/DL (32.0-36.0) Red Cell Distribution Width 18.7 % (11.6-14.8) H Platelet Count 210 K/UL (150-450) Mean Platelet Volume 7.3 FL (6.5-10.1) Neutrophils (%) (Auto) % (45.0-75.0) Lymphocytes (%) (Auto) % (20.0-45.0) Monocytes (%) (Auto) % (1.0-10.0) Eosinophils (%) (Auto) % (0.0-3.0) Basophils (%) (Auto) % (0.0-2.0) Differential Total Cells Counted 100 Neutrophils % (Manual) 72 % (45-75) Lymphocytes % (Manual) 5 % (20-45) L Monocytes % (Manual) 12 % (1-10) H Eosinophils % (Manual) 2 % (0-3) Basophils % (Manual) 1 % (0-2) Band Neutrophils 8 % (0-8) Nucleated Red Blood Cells 2 /100 WBC Platelet Estimate Adequate Platelet Morphology Normal Anisocytosis 2+ Sodium Level 137 MMOL/L (136-145) Potassium Level 4.8 MMOL/L (3.5-5.1) Chloride Level 104 MMOL/L (98-107) Carbon Dioxide Level 22 MMOL/L (21-32) Anion Gap 11 mmol/L (5-15) Blood Urea Nitrogen 48 mg/dL (7-18) H Creatinine 1.7 MG/DL (0.55-1.30) H Estimat Glomerular Filtration Rate 30.0 mL/min (>60) Glucose Level 122 MG/DL (74-106) H Calcium Level 8.6 MG/DL (8.5-10.1) Total Bilirubin 0.4 MG/DL (0.2-1.0) Aspartate Amino Transf (AST/SGOT) 14 U/L (15-37) L Alanine Aminotransferase (ALT/SGPT) < 6 U/L (12-78) L Alkaline Phosphatase 76 U/L (46-116) Total Protein 6.8 G/DL (6.4-8.2) Albumin 1.3 G/DL (3.4-5.0) L Globulin 5.5 g/dL Albumin/Globulin Ratio 0.2 (1.0-2.7) L Miscellaneous Test Pending Plan Problems: (1) Urinary tract infection (2) CHF exacerbation (3) History of schizophrenia (4) Atrial fibrillation with RVR (5) Schizophrenia (6) GERD (gastroesophageal reflux disease) (7) Smoker (8) Atrial fibrillation with rapid ventricular response (9) Lymphadema (10) COPD (chronic obstructive pulmonary disease) (11) CKD (chronic kidney disease) stage 3, GFR 30-59 ml/min (12) NATALIE (acute kidney injury) (13) Dehydration (14) Dysphagia (15) UTI (urinary tract infection) (16) UGI bleed (17) ESBL (extended spectrum beta-lactamase) producing bacteria infection (18) Constipation (19) Lactic acidosis (20) Tinea cruris (21) Onychomycosis (22) Emesis (23) Essential hypertension (24) Anemia (25) Cough (26) Depression (27) Depression (28) Edema (29) Rash (30) Opiate dependence (31) Opiate dependence (32) Opiate dependence (33) Opiate dependence (34) Pyelonephritis (35) Sepsis (36) UTI (urinary tract infection) (37) Nausea and vomiting (38) Abdominal pain Assessment & Plan: [age]-year-old female obese white abdominal pain deep tissue injury identified limited mobility on HD. KUB noted tube in place continue meds feeds Does not seem obstructed We will monitor lines noted. plan change resume tube feeds labs okay FINDINGS: Lower thorax: Obscuration of the left costophrenic angle suggestive of pleural effusion. Intraperitoneal space: No free air. Gastrointestinal tract: Unremarkable. No dilation. Bones/joints: Unremarkable. Tubes, lines and devices: The nasogastric tube has the tip at the mid inferior aspect of the gastric body. Other findings: Nonspecific gas pattern. Single frontal view of the abdomen demonstrates tip of the enteric tube and distal side-port projecting over the stomach. Gas is identified within the nondistended large bowel. There is a paucity of small bowel gas seen. Partially visualized left pleural effusion. No other significant interval change. (39) Chest pain (40) Chest pain (41) Nausea (42) Obesity (43) Chronic ulcer of leg (44) Chronic ulcer of leg (45) Chronic ulcer of leg (46) ACS (acute coronary syndrome) (47) Acute chest pain (48) Encounter for dressing change or suture removal (49) Left leg cellulitis (50) Acute encephalopathy (51) Encounter for wound re-check (52) Intractable nausea and vomiting (53) Infection due to ESBL-producing Escherichia coli (54) Chronic venous stasis (55) Change of dressing (56) Change of dressing (57) Change of dressing (58) Change of dressing (59) Change of dressing (60) Change of dressing (61) Change of dressing (62) Change of dressing (63) ESBL urine (64) Lymphadema (65) Lymphedema (66) Lymphedema (67) Lymphedema (68) Lymphedema (69) Lymphedema (70) Lymphedema (71) Lymphedema (72) Lymphedema (73) Open wound of foot (74) Open wound of foot (75) cellulitis (76) chronic lymphedema (77) chronic lymphedema (78) chronic lymphedema (79) hypertension uncontrolled (80) hypertension uncontrolled (81) Intertrigo (82) Sciatica (83) Cellulitis (84) Schizophrenia (85) Chronic bronchitis (86) HTN (hypertension) (87) Venous stasis ulcers (88) Medication refill (89) Chest pain, atypical (90) BMI 45.0-49.9, adult (91) Lymphedema of both lower extremities (92) hypertension uncontrolled (93) hypertension uncontrolled (94) hypertension uncontrolled (95) tenia corpus (96) Deep tissue injury Assessment & Plan: Morbidly obese pt whom presented on admission with Pressure injuries, Edemae bilat lower extremities eschar to dorsal aspects of metatarsals. Pt is very demanding of staff and can be resistive to repositioning. DTPI noted to L Sacrum(L)5.5cm x (W)2.5cm. Base of Pressure Injury is Maroon and indurated with surrounding non-blanchable erythema DTPI R Sacrum(L)5.5cm x (W)2.3cm. Base of Pressure Injury is maroon with purpuric center that is fluctuant. Pt complained of tenderness when minimally palpated. Bilat lower extremities are edematous . Dry eschar noted to nail matrix and tip of L 1st metatarsal, Dorsal L 2nd metatarsal, R 2nd and R 4th metatarsals. Both heels are boggy with non-Blanchable erythema. blisters forming on Right lower extremity anterior tibia. not infected cellulitis / edema on b/l le stable cont abx Tx.Plan: Apply Moisture Barrier Paste to Sacrum R and L gluteal cheeks. Cover with Opt ifoam drsgs. Change every 3 days and prn. Apply Betadine to dry eschar metatarsals both feet Daily. Apply Cavilon Skin Barrier to both heels. Cover each heel with Optifoam drsgs. Change every 7days and prn. Reposition at least every 2hours or as tolerated. Off-load heels with pillow. right leg hematoma stable critically ill and edema on right leg has compromised dermis over the hematoma. will likely need debridement once improved (97) COVID-19 Assessment & Plan: ++ on vent weaning abx as per ID (98) Respiratory failure Assessment & Plan: not able to wean safely will plan for trach case discussed with medical team, pulm, icu. recommended to trach given medical condition. medically indicated and recommended. s/p trach 01/08 s/p trach more comfortable less agitated on vent weaning here is complete or near complete opacification of left hemithorax. There is increasing pleural fluid on the right. Interstitial and airspace disease on the right is unchanged. Tracheostomy is again demonstrated Impression: Complete or near complete opacification left hemithorax. This may indicate rapidly accumulating pleural effusion, versus atelectatic left lung. chest tube 01/17 left chest tube to water seal am cxr (99) Pneumonia Juan Manuel Buckner Jan 23, 2020 17:16
--- NOTE | 2020-01-23 18:00 | NUR ---
NURSE NOTES: Patient has fever. Will administer Tylenol with scheduled medications. Waiting for cardizem via Gtube order from Dr. Meek.
--- NOTE | 2020-01-23 18:29 | Cardiology Progress Note ---
Subjective DATE OF SERVICE: Jan 23, 2020 Doing poorly - remains in ICU in critical condition with guarded prognosis. Remains on IV diltiazem; heart rates up still. Now s/p left thoracotomy. Remains on vent support - s/p trach. BP range remaining low normal range; fevers noted. Remains COVID19 positive. Monitor: AFIb with better rate control; now on oral cardizem and BBlocker. Venous Duplex: negative for DVT Renal fxn and electrolyte abnormalities, and free water deficit persist Objective Last 24 Hour Vital Signs Date Time Temp Pulse Resp B/P (MAP) Pulse Ox O2 Delivery O2 Flow Rate FiO2 01/23/20 16:00 100.6 134 24 114/68 (83) 01/23/20 16:00 Mechanical Ventilator 01/23/20 16:00 50 01/23/20 15:55 119 24 100 Mechanical Ventilator 50 135 22 50 01/23/20 15:43 133 01/23/20 15:00 116 22 109/63 (78) 01/23/20 14:00 121 21 122/73 (89) 96 01/23/20 13:00 129 28 112/90 (97) 97 01/23/20 12:00 Mechanical Ventilator 01/23/20 12:00 50 01/23/20 12:00 99.5 111 25 128/53 (78) 96 01/23/20 11:59 109 01/23/20 11:04 108 24 50 01/23/20 11:00 107 26 116/74 (88) 96 01/23/20 10:00 108 26 109/60 (76) 97 01/23/20 09:00 40 01/23/20 09:00 133 26 127/56 (79) 97 01/23/20 09:00 Mechanical Ventilator 01/23/20 08:58 125 126/56 01/23/20 08:57 125 126/56 01/23/20 08:00 99.9 135 26 116/61 (79) 96 01/23/20 07:44 139 01/23/20 07:35 141 28 100 Mechanical Ventilator 50 115 30 50 01/23/20 07:00 132 27 121/64 (83) 95 01/23/20 06:00 139 29 136/74 (94) 93 01/23/20 05:30 117 26 112/57 (75) 94 01/23/20 05:00 119 27 114/60 (78) 95 01/23/20 04:57 117 25 110/63 (79) 96 01/23/20 04:30 126 22 141/103 (116) 91 01/23/20 04:12 50 01/23/20 04:00 100.4 126 27 138/66 (90) 94 01/23/20 04:00 Mechanical Ventilator 01/23/20 04:00 125 01/23/20 03:30 118 26 134/85 (101) 95 01/23/20 03:00 114 27 128/70 (89) 94 01/23/20 02:30 110 27 124/72 (89) 94 01/23/20 02:30 123 26 50 01/23/20 02:00 108 26 123/75 (91) 94 01/23/20 01:30 104 29 116/66 (83) 97 01/23/20 01:05 96 27 96 Mechanical Ventilator 50 104 25 50 01/23/20 01:00 105 27 116/66 (83) 96 01/23/20 00:30 99 28 122/73 (89) 96 01/23/20 00:00 Mechanical Ventilator 01/23/20 00:00 99.0 101 27 126/68 (87) 96 01/23/20 00:00 50 01/23/20 00:00 102 01/22/20 23:30 97 28 125/71 (89) 96 01/22/20 23:00 92 28 117/67 (84) 95 01/22/20 22:30 119 26 136/79 (98) 96 01/22/20 22:30 102 26 50 01/22/20 22:15 135 31 159/94 (115) 92 01/22/20 22:00 119 24 131/76 (94) 96 01/22/20 21:30 120 26 137/73 (94) 95 01/22/20 21:00 129 29 144/70 (94) 88 01/22/20 20:56 121 127/67 01/22/20 20:30 127 27 133/68 (89) 96 01/22/20 20:00 Mechanical Ventilator 01/22/20 20:00 50 01/22/20 20:00 126 01/22/20 20:00 98.6 116 28 133/72 (92) 95 01/22/20 19:30 121 27 124/61 (82) 96 01/22/20 19:00 112 19 119/74 (89) 98 01/22/20 18:49 115 28 97 Mechanical Ventilator 50 111 25 50 ROS: unchanged from 12/12/19 HEENT: Orally intubated, Mechanically Ventilated, Thin secretions ET Tube, othe r - NGtube RHYTHM: NSR, ST LUNGS: diminished breath sounds, right-sided rhonchi CARDIAC: normal S1 and S2, irregularly irregular ABDOMEN: other - obese EXTREMITIES: moderate edema - mostly non pitting, other - hematoma right leg Laboratory Tests Test 01/23/20 03:05 01/23/20 12:00 White Blood Count 7.1 K/UL (4.8-10.8) Red Blood Count 2.74 M/UL (4.20-5.40) L Hemoglobin 7.9 G/DL (12.0-16.0) L Hematocrit 24.3 % (37.0-47.0) L Mean Corpuscular Volume 89 FL (80-99) Mean Corpuscular Hemoglobin 29.0 PG (27.0-31.0) Mean Corpuscular Hemoglobin Concent 32.6 G/DL (32.0-36.0) Red Cell Distribution Width 18.7 % (11.6-14.8) H Platelet Count 210 K/UL (150-450) Mean Platelet Volume 7.3 FL (6.5-10.1) Neutrophils (%) (Auto) % (45.0-75.0) Lymphocytes (%) (Auto) % (20.0-45.0) Monocytes (%) (Auto) % (1.0-10.0) Eosinophils (%) (Auto) % (0.0-3.0) Basophils (%) (Auto) % (0.0-2.0) Differential Total Cells Counted 100 Neutrophils % (Manual) 72 % (45-75) Lymphocytes % (Manual) 5 % (20-45) L Monocytes % (Manual) 12 % (1-10) H Eosinophils % (Manual) 2 % (0-3) Basophils % (Manual) 1 % (0-2) Band Neutrophils 8 % (0-8) Nucleated Red Blood Cells 2 /100 WBC Platelet Estimate Adequate Platelet Morphology Normal Anisocytosis 2+ Sodium Level 137 MMOL/L (136-145) Potassium Level 4.8 MMOL/L (3.5-5.1) Chloride Level 104 MMOL/L (98-107) Carbon Dioxide Level 22 MMOL/L (21-32) Anion Gap 11 mmol/L (5-15) Blood Urea Nitrogen 48 mg/dL (7-18) H Creatinine 1.7 MG/DL (0.55-1.30) H Estimat Glomerular Filtration Rate 30.0 mL/min (>60) Glucose Level 122 MG/DL (74-106) H Calcium Level 8.6 MG/DL (8.5-10.1) Total Bilirubin 0.4 MG/DL (0.2-1.0) Aspartate Amino Transf (AST/SGOT) 14 U/L (15-37) L Alanine Aminotransferase (ALT/SGPT) < 6 U/L (12-78) L Alkaline Phosphatase 76 U/L (46-116) Total Protein 6.8 G/DL (6.4-8.2) Albumin 1.3 G/DL (3.4-5.0) L Globulin 5.5 g/dL Albumin/Globulin Ratio 0.2 (1.0-2.7) L Miscellaneous Test Pending Microbiology Date/Time Source Procedure Growth Status 01/21/20 12:51 Indwelling Cath Urine Culture - Final NO GROWTH AFTER 48 HOURS Complete Assessment/Plan Assessment/Plan CRITICAL AND GUARDED Left lung opacification - s/p left thoracotomy; chest tube now removed. Acute respiratory failure - s/p trach Acute on chronic respiratory acidosis AFiB with labile heart rates, and now persistent RVR. CHF, ac/chr diastolic BLE edema Sepsis with shock obesity COPD with bronchospasm Acute renal failure - worsening Pleural effusion GI bleeding Anemia - multifactorial, now worse Covid 19 PNA Hyperkalemia Recurring lactic acidosis Dehydration/hypernatremia Hypertension/HHD with labile BP - now stable range. Vent support Try to taper of drips, and convert to oral therapies. Titrate beta yves and oral diltiazem doses. Hold diuretic dosing; acetazolamide discont'd as well. Consider PRBC transfusion for hb below 7gm/dl Monitor acid/base parameters. 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
[2020-01-23] MEDS: dilTIAZem HCl 90mg tab ORAL SCH ×2 (18:52→23:35)
--- NOTE | 2020-01-23 19:30 | NUR ---
NURSE NOTES: Received pt with eyes close,, respond to pain stimuli, Afib on the monitor with RVR, on Cardizem drip at 15mg/min and Po cardizem, Bilateral soft wrist restraints on for safety, Lockett to gravity with lg amt of doretha yellow urine. tolerated Gt fdg at this time with acceptable residuals. HOB kept elevated , on aspiration precaution. Pt has DTI buttocks area, pls see pictures and RT leg wound, covered with drsg dry and intact. Will continue to monitor.
--- NOTE | 2020-01-23 19:34 | NUR ---
NURSE HAND-OFF REPORT: Latest Vital Signs: Temperature 100.4 , Pulse 116 , B/P 115 /64 , Respiratory Rate 23 , O2 SAT 93 , Mechanical Ventilator, O2 Flow Rate . Vital Sign Comment: STABLE. MD aware of HR. EKG Rhythm: Atrial Fibrillation Rhythm change?: N MD Notified?: N -MD Gaviota UNDERWOOD Response: Latest Abreu Fall Score: 75 Fall Risk: High Risk Safety Measures: Call light Within Reach, Bed Alarm Zone 1, Side Rails Side Rails x3, Bed position Low and Locked. Fall Precautions: Yellow Socks Yellow Gown Door Sign Patient Fall Education Report given to Pebbles COHEN. Patient stable. Plan of care endorsed. Endorsed patient has a fever and needs reassessment.
[2020-01-23] MEDS: Dyna-Hex 2% Top Sol 2oz TOPIC SCH (20:18)
[2020-01-23] MEDS: Epoetin Alfa-EPBX (NON ESRD)10,000 unit/ml vial SUBQ SCH (21:12)
[2020-01-23] MEDS: Miralax 17gm pkt GT SCH (21:12)
[2020-01-23] MEDS: Ascorbic Acid 500mg tab GT SCH (21:12)
--- NOTE | 2020-01-23 21:30 | NUR ---
NURSE NOTES: Suctioned tk beige secretions from trache and mouth, oral care done.
--- NOTE | 2020-01-23 23:00 | NUR ---
NURSE NOTES: Had x1 soft brownish stool, cleaned up pt. sacral drsg was change.
--- NOTE | 2020-01-23 23:08 | Psych Consult Progress Note ---
Psychiatry Progress Note Psychiatry Progress Note Subjective the pt is still pancytopenic the pt is not agitated the pt lethargic Medications Current Medications Medications (Trade) Dose Ordered Sig/Shiraz Route PRN Reason Start Time Stop Time Status Last Admin Dose Admin Acetaminophen (Tylenol) 650 mg Q4H PRN GT Mild Pain (Pain Scale 1-3) 01/12/20 10:00 02/11/20 09:59 01/21/20 11:38 Acetaminophen (Tylenol) 650 mg Q4H PRN GT Temp >100.5 01/12/20 10:00 02/11/20 09:59 01/23/20 12:33 Acetylcysteine (Mucomyst) 200 mg Q6HRT HHN 01/19/20 13:30 04/18/20 13:29 01/23/20 22:46 Albuterol Sulfate (Proventil MDI) 2 puff Q4H PRN INH Shortness of Breath 12/24/19 10:30 03/23/20 10:29 01/12/20 09:44 Ascorbic Acid (Vitamin C) 500 mg BEDTIME GT 01/17/20 21:00 02/16/20 20:59 01/23/20 21:12 Bacitracin (Bacitracin 15gm tube) 1 applic EVERY 12 HOURS TOPIC 01/16/20 11:00 04/15/20 10:59 01/23/20 21:13 Chlorhexidine Gluconate (Jessie-Hex 2%) 1 applic DAILY@1999 TOPIC 12/24/19 20:00 03/23/20 19:59 01/23/20 20:18 Clotrimazole (Lotrimin) 1 applic EVERY 12 HOURS TOPIC 01/05/20 09:00 03/12/20 08:59 01/23/20 21:13 Diltiazem HCl 125 ml @ 0 mls/hr Q24H IVPB 01/22/20 11:30 01/24/20 11:29 01/23/20 22:02 Diltiazem HCl (Cardizem Tab) 90 mg EVERY 6 HOURS ORAL 01/23/20 18:45 02/22/20 18:44 01/23/20 18:52 Docusate Sodium (Colace) 100 mg EVERY 12 HOURS GT 01/17/20 09:00 01/24/20 08:59 01/23/20 21:11 Enoxaparin Sodium (Lovenox) 60 mg DAILY SUBQ 01/13/20 12:00 04/12/20 11:59 01/23/20 09:02 Epoetin Cristiano (Epoetin Cristiano-EPBX(NON ESRD)) 10,000 unit TUE-TUE-TUE SUBQ 01/23/20 21:00 04/22/20 20:59 01/23/20 21:12 Furosemide (Lasix) 100 mg Q6HR IV 01/23/20 12:00 02/22/20 11:59 01/23/20 18:52 Ipratropium Gamaliel (Atrovent) 500 mcg Q6H PRN HHN Shortness of Breath 01/19/20 13:30 01/24/20 13:29 01/23/20 22:46 Linezolid 300 ml @ 300 mls/hr EVERY 12 HOURS IVPB 01/19/20 21:00 01/26/20 20:59 01/23/20 21:14 Lorazepam (Ativan) 1 mg Q6H PRN GT For Anxiety 01/22/20 00:30 01/29/20 00:29 Meropenem 1 gm/ Sodium Chloride 100 ml @ 200 mls/hr Q12H IVPB 01/22/20 16:00 01/27/20 15:59 01/23/20 15:38 Metoclopramide HCl (Reglan) 5 mg Q6H IVP 01/05/20 09:15 02/04/20 09:14 01/23/20 21:13 Metoprolol Tartrate (Lopressor) 100 mg EVERY 12 HOURS GT 01/21/20 09:00 04/20/20 08:59 01/23/20 21:18 Micafungin Sodium 100 mg/Sodium Chloride 100 ml @ 100 mls/hr Q24H IVPB 01/20/20 19:00 01/27/20 18:59 01/23/20 18:53 Minocycline HCl (Minocin) 100 mg Q12HR ORAL 01/22/20 21:00 01/29/20 20:59 01/23/20 21:12 Multivitamins (Multivitamins W/ Minerals 15ml Liquid) 15 ml Q24H GT 01/18/20 11:00 02/17/20 10:59 01/23/20 12:31 Pantoprazole (Protonix) 40 mg EVERY 12 HOURS IVP 01/01/20 21:00 01/31/20 20:59 01/23/20 21:12 Polyethylene Glycol (Miralax) 17 gm BEDTIME GT 01/17/20 21:00 01/28/20 20:59 01/23/20 21:12 Quetiapine Fumarate (SEROqueL) 100 mg Q8HR GT 01/23/20 14:00 03/08/20 13:59 01/23/20 22:02 Neurological/Psychiatric: Reports: anxiety, depressed, emotional problems Allergies: Coded Allergies: ERYTHROMYCIN BASE (Verified Allergy, Severe, 12/12/19) HALOPERIDOL (Verified Allergy, Unknown, 12/12/19) VANCOMYCIN (Unverified Adverse Reaction, Intermediate, Shortness of Breath, 12/12/19) Objective Data Height (Feet): 5 Height (Inches): 6.00 Weight (Pounds): 343 General Appearance: morbidly obese, other - trach vent sedated Additional Comments: Assessment/Plan Cunningham I: seroquel 125 tid ativan 1mg q 8 hrs/prn dc bilat restraints. dc midazolam Status: stable Status Narrative seroquel 125 tid ativan 1mg q 8 hrs/prn dc bilat restraints. dc midazolam Assessment/Plan: seroquel 125 tid ativan 1mg q 8 hrs/prn dc bilat restraints. dc midazolam Harris Ballesteros MD Jan 23, 2020 23:08
[2020-01-24] VITALS (34 sets, daily range): BP systolic 96–157; BP diastolic 50–115
--- NOTE | 2020-01-24 02:00 | NUR ---
NURSE NOTES: Tolerated fdg HOB kept elevated. On aspiration precaution
[2020-01-24] MEDS: Metoclopramide 10mg/2ml Inj IVP SCH ×4 (03:29→21:15)
--- NOTE | 2020-01-24 04:00 | NUR ---
NURSE NOTES: Complete bed bath with bed changed done
[2020-01-24 05:06] LABS: BASOPHILS % (AUTO) 1.6 % (0.0-2.0); EOSINOPHILS % (AUTO) 0.6 % (0.0-3.0); HEMOGLOBIN 8.2 G/DL (12.0-16.0); LYMPHOCYTES % (AUTO) 8.4 % (20.0-45.0); MEAN CORPUSCULAR VOLUME 89 FL (80-99); MONOCYTES % (AUTO) 7.9 % (1.0-10.0); NEUTROPHILS % (AUTO) 81.6 % (45.0-75.0); PLATELET COUNT 223 K/UL (150-450); RED CELL DISTRIBUTION WIDTH 18.8 % (11.6-14.8); WHITE BLOOD COUNT 7.4 K/UL (4.8-10.8)
[2020-01-24 05:11] LABS: CREATININE 1.7 MG/DL (0.55-1.30); POTASSIUM 4.3 MMOL/L (3.5-5.1)
[2020-01-24] MEDS: dilTIAZem Premix 125mg/125ml 125 ML IVPB SCH ×3 (05:36→22:41)
[2020-01-24] MEDS: dilTIAZem HCl 90mg tab ORAL SCH ×4 (05:50→23:11)
--- NOTE | 2020-01-24 06:00 | NUR ---
NURSE NOTES: Still on fib with RVR, Bp stable.Unable to taper Cardizem drip.
[2020-01-24] MEDS: Acetylcysteine 20% Soln 4ml HHN SCH ×3 (07:00→23:22)
--- NOTE | 2020-01-24 07:02 | General Progress Note ---
Subjective ROS Limited/Unobtainable: Yes Allergies: Coded Allergies: ERYTHROMYCIN BASE (Verified Allergy, Severe, 12/12/19) HALOPERIDOL (Verified Allergy, Unknown, 12/12/19) VANCOMYCIN (Unverified Adverse Reaction, Intermediate, Shortness of Breath, 12/12/19) Objective Last 24 Hour Vital Signs Date Time Temp Pulse Resp B/P (MAP) Pulse Ox O2 Delivery O2 Flow Rate FiO2 01/24/20 05:50 134 147/93 01/24/20 04:30 116 129/73 (91) 81 01/24/20 04:00 99.8 113 97/82 (87) 99 01/24/20 04:00 128 01/24/20 04:00 Mechanical Ventilator 01/24/20 04:00 50 01/24/20 03:30 108 117/64 (81) 90 01/24/20 03:10 125 30 50 01/24/20 03:00 141 151/75 (100) 97 01/24/20 02:30 143 28 125/80 (95) 77 01/24/20 02:00 138 28 138/68 (91) 84 01/24/20 01:30 128 23 125/94 (104) 95 01/24/20 01:00 126 25 121/63 (82) 97 01/24/20 00:30 122 24 127/94 (105) 95 01/24/20 00:00 50 01/24/20 00:00 135 01/24/20 00:00 100.0 128 26 124/66 (85) 92 01/24/20 00:00 Mechanical Ventilator 01/23/20 23:35 137 108/69 01/23/20 23:30 123 19 108/69 (82) 95 01/23/20 23:00 118 19 107/62 (77) 97 01/23/20 22:47 117 20 99 Mechanical Ventilator 50 116 22 50 01/23/20 22:30 133 25 132/68 (89) 95 01/23/20 22:00 135 24 121/68 (85) 90 01/23/20 21:30 143 24 143/64 (90) 98 01/23/20 21:18 147 140/67 01/23/20 21:00 128 23 140/67 (91) 99 01/23/20 20:30 144 26 126/77 (93) 91 01/23/20 20:00 130 10/14/20 20:00 Mechanical Ventilator 01/23/20 20:00 100.0 01/23/20 20:00 99.8 125 21 125/70 (88) 100 01/23/20 20:00 50 01/23/20 19:30 136 25 139/65 (89) 96 01/23/20 19:00 116 23 115/64 (81) 93 01/23/20 18:52 122 110/54 01/23/20 18:36 129 20 50 01/23/20 18:00 100.4 117 20 123/60 (81) 100 01/23/20 17:00 100.3 124 23 118/52 (74) 99 01/23/20 16:00 100.6 134 24 114/68 (83) 01/23/20 16:00 Mechanical Ventilator 01/23/20 16:00 50 01/23/20 15:55 119 24 100 Mechanical Ventilator 50 135 22 50 01/23/20 15:43 133 01/23/20 15:00 116 22 109/63 (78) 01/23/20 14:00 121 21 122/73 (89) 96 01/23/20 13:03 99.4 01/23/20 13:00 129 28 112/90 (97) 97 01/23/20 12:00 Mechanical Ventilator 01/23/20 12:00 50 01/23/20 12:00 99.5 111 25 128/53 (78) 96 01/23/20 11:59 109 01/23/20 11:04 108 24 50 01/23/20 11:00 107 26 116/74 (88) 96 01/23/20 10:00 108 26 109/60 (76) 97 01/23/20 09:00 40 01/23/20 09:00 133 26 127/56 (79) 97 01/23/20 09:00 Mechanical Ventilator 01/23/20 08:58 125 126/56 01/23/20 08:57 125 126/56 01/23/20 08:00 99.9 135 26 116/61 (79) 96 01/23/20 07:44 139 01/23/20 07:35 141 28 100 Mechanical Ventilator 50 115 30 50 Intake and Output 01/23/20 01/24/20 19:00 07:00 Intake Total 1020.0 ml 1110 ml Output Total 1900 ml 1450 ml Balance -880.0 ml -340 ml Free Water 300 ml IV Total 520.0 ml 150 ml Tube Feeding 500 ml 660 ml Output Urine Total 1900 ml 1450 ml # Bowel Movements 3 5 Laboratory Tests 01/23/20 12:00: Miscellaneous Test [Pending] 01/24/20 04:00: White Blood Count 7.4, Red Blood Count 2.80L, Hemoglobin 8.2L, Hematocrit 25.0L, Mean Corpuscular Volume 89, Mean Corpuscular Hemoglobin 29.1, Mean Corpuscular Hemoglobin Concent 32.6, Red Cell Distribution Width 18.8H, Platelet Count 223, Mean Platelet Volume 7.1, Neutrophils (%) (Auto) 81.6H, Lymphocytes (%) (Auto) 8.4L, Monocytes (%) (Auto) 7.9, Eosinophils (%) (Auto) 0.6, Basophils (%) (Auto) 1.6, Sodium Level 141, Potassium Level 4.3, Chloride Level 107, Carbon Dioxide Level 25, Anion Gap 9, Blood Urea Nitrogen 48H, Creatinine 1.7H, Estimat Glomerular Filtration Rate 30.0, Glucose Level 142H, Lactic Acid Level 1.80, Calcium Level 9.0 Height (Feet): 5 Height (Inches): 6.00 Weight (Pounds): 343 General Appearance: morbidly obese, other - trach vent eyes closed Neck: normal inspection Cardiovascular: regularly irregular, tachycardia Respiratory/Chest: accessory muscle use, rhonchi - bilaterally Abdomen: non tender, soft Edema: moderate edema Neurologic: unresponsive Assessment/Plan Problem List: (1) Schizophrenia ICD Codes: F20.9 - Schizophrenia, unspecified SNOMED: 16748154 (2) GERD (gastroesophageal reflux disease) ICD Codes: K21.9 - Gastro-esophageal reflux disease without esophagitis SNOMED: 102265318 (3) Lymphadema (4) Smoker ICD Codes: F17.200 - Nicotine dependence, unspecified, uncomplicated SNOMED: 04741140 (5) Atrial fibrillation with rapid ventricular response ICD Codes: I48.91 - Unspecified atrial fibrillation SNOMED: 940319382571538 (6) CKD (chronic kidney disease) stage 3, GFR 30-59 ml/min ICD Codes: N18.3 - Chronic kidney disease, stage 3 (moderate) SNOMED: 377110616 (7) NATALIE (acute kidney injury) ICD Codes: N17.9 - Acute kidney failure, unspecified SNOMED: 6921251, 01629354 (8) COPD (chronic obstructive pulmonary disease) ICD Codes: J44.9 - Chronic obstructive pulmonary disease, unspecified SNOMED: 28297536 (9) UGI bleed ICD Codes: K92.2 - Gastrointestinal hemorrhage, unspecified SNOMED: 74963037 (10) Dysphagia ICD Codes: R13.10 - Dysphagia, unspecified SNOMED: 82329525, 628596849 (11) UTI (urinary tract infection) ICD Codes: N39.0 - Urinary tract infection, site not specified SNOMED: 05033099 (12) ESBL (extended spectrum beta-lactamase) producing bacteria infection ICD Codes: A49.9 - Bacterial infection, unspecified; Z16.12 - Extended spectrum beta lactamase (ESBL) resistance SNOMED: 939372665 (13) Dehydration ICD Codes: E86.0 - Dehydration SNOMED: 77200013 (14) CHF exacerbation ICD Codes: I50.9 - Heart failure, unspecified SNOMED: 925730165, 15509621429176 (15) Acute respiratory failure ICD Codes: J96.00 - Acute respiratory failure, unspecified whether with hypoxia or hypercapnia SNOMED: 92374645 (16) COVID-19 ICD Codes: U07.1 - COVID-19 SNOMED: 757565559 (17) Pneumonia ICD Codes: J18.9 - Pneumonia, unspecified organism SNOMED: 465608580 Qualifiers: (18) Hematoma of lower leg ICD Codes: S80.10XA - Contusion of unspecified lower leg, initial encounter SNOMED: 234535407 (19) CKD (chronic kidney disease) stage 3, GFR 30-59 ml/min ICD Codes: N18.3 - Chronic kidney disease, stage 3 (moderate) SNOMED: 231149082 (20) Pancytopenia ICD Codes: D61.818 - Other pancytopenia SNOMED: 794965085 (21) Malnutrition of moderate degree ICD Codes: E44.0 - Moderate protein-calorie malnutrition SNOMED: 326638852 Status: stable Assessment/Plan: resp distress, icu, trach, vent, natalie on ckd,,now stable, I/O reviewed, h ematoma RLE stop eliquis , lovenox now iv protonix, rx esbl and + vre uti,g+ cocci , remains high risk, d/w psych, ID, cardiology, ,covid neg prior positive this admission now neg, , grave prognosis, fungemia treated with micafungin likely will be unable to wean for a long time, agitated when tried to wean , ,all lab and orders reviewed , no active bleeding , low Hb tolerates, pancytopenia stable may be from sepsis or meds(remdesivir, chlorpromazine, micafungin, linezolid), posssible primary BM disease, wbc and platelets a bit better now, to observe ,immunofixation ordered,negative, also anemia of renal disease start epogen, hypernatremia and free water gt, , Na better restart lasix , increase 100 mg q 8 hr as+ +fluid balance, titrate sedatives , some distress and now on 100% FIO2, cxr complete opacification of the left thorax. afib rate 130+ on cardizem drip, d/w dr vazquez, Interval worsening airspace opacities throughout the right lung. pleural fluid esbl on meropoenam, cardizem +metoprolol , s/p thoracentesis , chest tube removed, still fluid overload increase lasix, low albumin increase tube feed, icu time 35 min Benjamin Dumont MD Jan 24, 2020 07:02
--- NOTE | 2020-01-24 07:28 | NUR ---
NURSE HAND-OFF REPORT: Latest Vital Signs: Temperature 99.8 , Pulse 139 , B/P 121 /83 , Respiratory Rate 24 , O2 SAT 98 , Mechanical Ventilator, O2 Flow Rate . Vital Sign Comment: EKG Rhythm: Atrial Fibrillation Rhythm change?: N Notified?: N -MD Gaviota UNDERWOOD Response: Latest Abreu Fall Score: 75 Fall Risk: High Risk Safety Measures: Call light Within Reach, Bed Alarm Zone 1, Side Rails Side Rails x3, Bed position Low and Locked. Fall Precautions: Yellow Socks Yellow Gown Door Sign Patient Fall Education Report given to Jacy COHEN.
--- NOTE | 2020-01-24 07:30 | NUR ---
NURSE NOTES: Patient received from Abhi COHEN. Patient stable but HR evelated 130-150's at this time. No s/sx of pain or distress. AOx0 resting at this time but making sustained eye contact and when greeted she mouthed response but was not able to understand. When asked to repeat, patient went back to sleep. RR even and unlabored on trach shiley 8. Ventilator settings as ordered AC 18 600mL 50% P8. Cardiac sounds benign. Breath sounds diminished, rhoncus. Bowels sounds present. Feeding infusing. Zero residual. Gtube. Generalized edema present with hands +1 and ankles +1. Lockett in place draining well to gravity. LT UA PICC line dressing dry and intact. Patent with Cardizem and TKO to both ports. Restraints on with good ROM, sensation and circulation. Still attempting to grab and pull on devices and grabbing staff when moved. Dependent edema present and previously noted unrelated to restraints. Side rails upx2, bed low and locked.
--- NOTE | 2020-01-24 08:30 | NUR ---
NURSE NOTES: Reported HR of 150's with range of 120's -160's to Dr. Ribeiro. Received order for Metoprolol 5mg IVP x3 q5min.
--- NOTE | 2020-01-24 08:31 | NUR ---
RADIOLOGY DEPT., CHEST X-RAY DONE.-P.DYE
[2020-01-24] MEDS: Metoprolol Tartrate 5mg/5ml Inj IVP PRN ×2 (08:39→09:35)
[2020-01-24] MEDS: Pantoprazole Inj IVP SCH ×2 (08:39→21:14)
[2020-01-24] MEDS: Minocycline HCl 50mg cap ORAL SCH ×2 (08:39→21:14)
[2020-01-24] MEDS: Enoxaparin 60mg Inj SUBQ SCH (08:40)
[2020-01-24] MEDS: Metoprolol Tartrate 50mg tab GT SCH ×2 (08:40→21:15)
--- NOTE | 2020-01-24 08:40 | NUR ---
NURSE NOTES: HR still elevated 140's-160's. Metoprolol 5mg IVP given along with scheduled medications.
[2020-01-24] MEDS: Bacitracin Oint 15gm Tube TOPIC SCH ×2 (08:42→22:32)
[2020-01-24] MEDS: Acetaminophen 650mg/20.3ml GT PRN ×4 (09:30→23:11)
--- NOTE | 2020-01-24 09:40 | NUR ---
NURSE NOTES: Scheduled medications given. Second dose of Metoprolol 5mg given for HR of 140's. Now HR in 110's - 120's. Tylenol also given at this time for 101.0F fever. Cleaned at this time and repositioned. Small emesis when suctioning. Audible sounds when patient breathing. Cuff reinflated and ABG obtained by RT.
--- NOTE | 2020-01-24 09:45 | NUR ---
RD ASSESSMENT & RECOMMENDATIONS SEE CARE ACTIVITY FOR COMPLETE ASSESSMENT DAILY ESTIMATED NEEDS: Needs based on Obesity, Cardiac, DM, NATALIE, Critical Care/ 80.5kg abw 22-25kg/IBW (59kg) kcals/kg 0575-4128 total kcals 1-2 g protein/kg 80-161 g total protein 20-25 mL/kg 6759-3570 total fluid mLs NUTRITION DIAGNOSIS: 21) Class III Obesity R/T lifestyle factors? excessive energy intake as evidenced by pt w/ BMI >50, @ 245% IBW. 2) Altered nutrition related lab values R/T diabetes, altered lipid metabolism, cardiac hx, NATALIE as evidenced by A1C of 7.1, elev triglyceride 239-> wnl, elev BNP 4671->2682, elev creat (1.7->4.3 -> 1.7, elev BUN (92 -> 27-> 48 back up), elev K (5.4, 5.2 -> wnl->5.3-> wnl->5.8, Kdur dc'ed -> now wnl), 3) Swallowing difficulty R/T decreased cognitive fxn, respiratory status as evidenced by s/p NGT insertion (12/17), s/p worsening respiratoy status, Covid-19 positive, orally intubated (12/22), s/p trach placement (01/08), S/p PEG placement. CURRENT TF:Glucerna 1.5 @ 40ml/hr x 24 hrs ENTERAL NUTRITION RECOMMENDATIONS: Glucerna 1.5 @ 40ml/hr x 24 hrs + Prosource 1pkt BID to provide 960ml, 1440kcal, 79+22g prot, 729ml free water * LOWER TF rate to 40ml/hr x 24 hrs not to exceed kcal needs * ADD Prosource 1pkt BID to better meet protein needs * HOB over 30 degrees/ water flush per MD ADDITIONAL RECOMMENDATIONS: 1) Calibrated bedscale wt: fluctuating daily wts 2) Monitor renal fxn and lytes: creat stable 1.7-2.0 -> monitor K (elev /, Kdur dc'ed) 3) Monitor BGs closely w/ Decadron, now off. 4) Feed at goal w/ hemodynamic stability -off pressor support 5) Wound healing: Cont vit C, add Armand BID .
--- NOTE | 2020-01-24 09:55 | Pulmonolgy Critical Care Note ---
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[employer]GER 01/24/20 0955: Critical Care - Asmt/Plan Assessment/Plan: ASSESSMENT acute hypoxemic hypercapnic resp failure, requiring intubation 12/22 failure to wean s/p trach 01/08 COVID 19 PNA ( last test NGT) sepsis fungemia empyema s/p L thoracotomy 01/17, s/p removal UTI with E coli ESBL UTI VRE possible aspiration PNA - s/p treatment Moderate R pleural effusion s/p tap COPD Atrial fibrillation with RVR CHF Acute renal failure on CKD Severe anemia dysphagia, s/p PEG 01/08 Thrombocytopenia Status post ground fall Tobacco dependency Morbid obesity probable GARY R knee edema and hematoma, possible cellulitis Hyper Na due to free water deficit PLAN OF CARE s/p trach, prior not tolerated weaning trials; developed tachycardia /A fib with RVR back on Cardizem gtt , weaning trial on hold s/p tap 01/15 -500 ml pleural fluid pleural fl cx 01/15 E coli ESBL, GPC and yeast , glucose low -> c/w empyema abx as per ID recs -> now Meropenem, Linezolid , Micafungin, Bactrim s/p L thoracotomy 01/17 was on daily CXR while CT in, initially CT to Hemovac drainage, then to water seal, eventually was dc 01/21 CXR 01/22 -> Interim left chest tube removal. No pneumothorax Slightly increased right pleural effusion ABG stable , acidosis resolved ; FiO2 down to 50% , PEEP decreased to 5 ABG this am 01/[address] chest pending Mucomyst added to HHN repeated COVID 19 01/14 and 01/17 NGT s/p steroids IV ( started 12/23) continue for total of 10 days till 01/02 s/p Remdesivir (started 12/24 ), dc 12/30 initial diagnoses with COVID 19 at [facility] 11/29, was not hypoxic and not intubated, was not treated with Remdesivivr , only received empiric abx for PNA DVT prophylaxis with Lovenox on diuresis with Lasix, monitor volumes closely creat remains stable consider d/c Diamox afib rate control - s/p Cardizem gtt GI prophylaxis with PPI s/p PEG 01/09, asp precautions, severely leukopenic ? due to meds vs ? primary BM disease -resolved monitor counts immunofixation screen unremarkable transfuse to keep Hgb > 7 , s/p transfusion 01/13 previously evaluated by bioethics -> DNR/DNI status appropriate if not weanable in few days., consider transfer to LTAC for further management case discussed and evaluated by supervising physician Critical Care - Objective Last 24 Hour Vital Signs Date Time Temp Pulse Resp B/P (MAP) Pulse Ox O2 Delivery O2 Flow Rate FiO2 01/24/20 09:35 144 155/110 01/24/20 09:00 136 23 148/88 (108) 98 01/24/20 08:40 160 144/91 01/24/20 08:39 160 144/91 01/24/20 08:00 133 24 141/91 (108) 99 01/24/20 08:00 151 01/24/20 07:00 139 24 121/83 (96) 98 01/24/20 06:30 140 25 96/73 (81) 97 01/24/20 06:00 122 26 142/55 (84) 98 01/24/20 05:50 134 147/93 01/24/20 05:30 120 25 147/93 (111) 01/24/20 05:00 137 26 153/67 (95) 80 01/24/20 04:30 116 129/73 (91) 81 01/24/20 04:00 99.8 113 97/82 (87) 99 01/24/20 04:00 128 01/24/20 04:00 Mechanical Ventilator 01/24/20 04:00 50 01/24/20 03:30 108 117/64 (81) 90 01/24/20 03:10 125 30 50 01/24/20 03:00 141 151/75 (100) 97 01/24/20 02:30 143 28 125/80 (95) 77 01/24/20 02:00 138 28 138/68 (91) 84 01/24/20 01:30 128 23 125/94 (104) 95 01/24/20 01:00 126 25 121/63 (82) 97 01/24/20 00:30 122 24 127/94 (105) 95 01/24/20 00:00 50 01/24/20 00:00 135 01/24/20 00:00 100.0 128 26 124/66 (85) 92 01/24/20 00:00 Mechanical Ventilator 01/23/20 23:35 137 108/69 01/23/20 23:30 123 19 108/69 (82) 95 01/23/20 23:00 118 19 107/62 (77) 97 01/23/20 22:47 117 20 99 Mechanical Ventilator 50 116 22 50 01/23/20 22:30 133 25 132/68 (89) 95 01/23/20 22:00 135 24 121/68 (85) 90 01/23/20 21:30 143 24 143/64 (90) 98 01/23/20 21:18 147 140/67 01/23/20 21:00 128 23 140/67 (91) 99 01/23/20 20:30 144 26 126/77 (93) 91 01/23/20 20:00 130 01/23/20 20:00 Mechanical Ventilator 01/23/20 20:00 100.0 01/23/20 20:00 99.8 125 21 125/70 (88) 100 01/23/20 20:00 50 01/23/20 19:30 136 25 139/65 (89) 96 01/23/20 19:00 116 23 115/64 (81) 93 01/23/20 18:52 122 110/54 01/23/20 18:36 129 20 50 01/23/20 18:00 100.4 117 20 123/60 (81) 100 01/23/20 17:00 100.3 124 23 118/52 (74) 99 01/23/20 16:00 100.6 134 24 114/68 (83) 01/23/20 16:00 Mechanical Ventilator 01/23/20 16:00 50 01/23/20 15:55 119 24 100 Mechanical Ventilator 50 135 22 50 01/23/20 15:43 133 01/23/20 15:00 116 22 109/63 (78) 01/23/20 14:00 121 21 122/73 (89) 96 01/23/20 13:03 99.4 01/23/20 13:00 129 28 112/90 (97) 97 01/23/20 12:00 Mechanical Ventilator 01/23/20 12:00 50 01/23/20 12:00 99.5 111 25 128/53 (78) 96 01/23/20 11:59 109 01/23/20 11:04 108 24 50 01/23/20 11:00 107 26 116/74 (88) 96 01/23/20 10:00 108 26 109/60 (76) 97 Objective: CONDITION: critical General Appearance: morbidly obese , sedated, generalized anasarca ; on vent AC 600-18-50 % PEEP 5 Lines, tubes and drains: LUE PICC , intact HEENT: normocephalic, atraumatic, anicteric, Neck: trach with Shiley # 8, secretions moderate amount, yellow color, thick consistency Respiratory/Chest: few isolated rhonchi , tachypneic Cardiovascular/Chest: irregularly irregular - A fib , tachy , distant heart sounds, Abdomen: normal bowel sounds, non tender , obese, soft distended ; G tube with TF : Lockett Extremities: no calf tenderness, moderate edema - +3 BLE, R knee with large hematoma, edema, Skin Exam: warm/dry, multiple tattoos Neurologic: sedated Musculoskeletal: normal muscle bulk Micro: Microbiology Date/Time Source Procedure Growth Status 01/21/20 12:51 Indwelling Cath Urine Culture - Final NO GROWTH AFTER 48 HOURS Complete 01/21/20 12:40 Blood Blood Culture - Preliminary NO GROWTH AFTER 48 HOURS Resulted 01/21/20 12:40 Blood Blood Culture - Preliminary NO GROWTH AFTER 48 HOURS Resulted Accucheck: 136 Critical Care - Subjective ROS Limited/Unobtainable: Yes Interval Events: PEEP down to 5, ABG pending no signs of resp distress on current settings remains in A fib with RVR and Cardizem gtt febrile intermittently Condition: critical IV Access: PICC - LUE intact EKG Rhythm: Atrial Fibrillation - with RVR FI02: 50 Vent Support Breath Rate: 18 Vent Support Mode: AC Vent Tidal Volume: 600 Sputum Amount: Small PEEP: 5.0 PIP: 33 Tube Feeding Amount: 60 I&O: Intake and Output 01/23/20 01/24/20 19:00 07:00 Intake Total 1020.0 ml 1170 ml Output Total 1900 ml 1600 ml Balance -880.0 ml -430 ml Free Water 300 ml IV Total 520.0 ml 150 ml Tube Feeding 500 ml 720 ml Output Urine Total 1900 ml 1600 ml # Bowel Movements 3 5 CXR: CXR 01/22 Interim left chest tube removal. No pneumothorax Slightly increased right pleural effusion Other stable findings as described Colt Keen MD 01/24/209: Critical Care - Asmt/Plan Assessment/Plan: Patient seen and examined with [employer]GER and I agree with the above formulated assessment and plan. Time Spent (Minutes): 40 - cc Luz Bowen NP Jan 24, 2020 09:55 Colt Keen MD Jan 24, 2020 21:19
[2020-01-24] MEDS: Multivitamins W/Minerals 15 ML UDC GT SCH (12:00)
--- NOTE | 2020-01-24 12:00 | Surgery Progress Note ---
Surgery Progress Note Subjective Procedure Performed left tube thoracotomy Additional Comments no acute events stable labs okay exam unchanged no n/v Objective Last 24 Hour Vital Signs Date Time Temp Pulse Resp B/P (MAP) Pulse Ox O2 Delivery O2 Flow Rate FiO2 01/24/20 11:00 124 22 128/115 (119) 98 01/24/20 10:00 101.7 01/24/20 10:00 101.7 01/24/20 10:00 114 18 126/78 (94) 100 01/24/20 09:35 144 155/110 01/24/20 09:00 136 23 148/88 (108) 98 01/24/20 09:00 101.0 01/24/20 08:40 160 144/91 01/24/20 08:39 160 144/91 01/24/20 08:00 100.8 01/24/20 08:00 133 24 141/91 (108) 99 01/24/20 08:00 50 01/24/20 08:00 Mechanical Ventilator 01/24/20 08:00 151 01/24/20 07:00 139 24 121/83 (96) 98 01/24/20 06:55 151 27 50 01/24/20 06:30 140 25 96/73 (81) 97 01/24/20 06:00 122 26 142/55 (84) 98 01/24/20 05:50 134 147/93 01/24/20 05:30 120 25 147/93 (111) 01/24/20 05:00 137 26 153/67 (95) 80 01/24/20 04:30 116 129/73 (91) 81 01/24/20 04:00 99.8 113 97/82 (87) 99 01/24/20 04:00 128 01/24/20 04:00 Mechanical Ventilator 01/24/20 04:00 50 01/24/20 03:30 108 117/64 (81) 90 01/24/20 03:10 125 30 50 01/24/20 03:00 141 151/75 (100) 97 01/24/20 02:30 143 28 125/80 (95) 77 01/24/20 02:00 138 28 138/68 (91) 84 01/24/20 01:30 128 23 125/94 (104) 95 01/24/20 01:00 126 25 121/63 (82) 97 01/24/20 00:30 122 24 127/94 (105) 95 01/24/20 00:00 50 01/24/20 00:00 135 01/24/20 00:00 100.0 128 26 124/66 (85) 92 01/24/20 00:00 Mechanical Ventilator 01/23/20 23:35 137 108/69 01/23/20 23:30 123 19 108/69 (82) 95 01/23/20 23:00 118 19 107/62 (77) 97 01/23/20 22:47 117 20 99 Mechanical Ventilator 50 116 22 50 01/23/20 22:30 133 25 132/68 (89) 95 01/23/20 22:00 135 24 121/68 (85) 90 01/23/20 21:30 143 24 143/64 (90) 98 01/23/20 21:18 147 140/67 01/23/20 21:00 128 23 140/67 (91) 99 01/23/20 20:30 144 26 126/77 (93) 91 01/23/20 20:00 130 01/23/20 20:00 Mechanical Ventilator 01/23/20 20:00 100.0 01/23/20 20:00 99.8 125 21 125/70 (88) 100 01/23/20 20:00 50 01/23/20 19:30 136 25 139/65 (89) 96 01/23/20 19:00 116 23 115/64 (81) 93 01/23/20 18:52 122 110/54 01/23/20 18:36 129 20 50 01/23/20 18:00 100.4 117 20 123/60 (81) 100 01/23/20 17:00 100.3 124 23 118/52 (74) 99 01/23/20 16:00 100.6 134 24 114/68 (83) 01/23/20 16:00 Mechanical Ventilator 01/23/20 16:00 50 01/23/20 15:55 119 24 100 Mechanical Ventilator 50 135 22 50 01/23/20 15:43 133 01/23/20 15:00 116 22 109/63 (78) 01/23/20 14:00 121 21 122/73 (89) 96 01/23/20 13:03 99.4 01/23/20 13:00 129 28 112/90 (97) 97 01/23/20 12:00 Mechanical Ventilator 01/23/20 12:00 50 01/23/20 12:00 99.5 111 25 128/53 (78) 96 I&O Intake and Output 01/23/20 01/24/20 19:00 07:00 Intake Total 1020.0 ml 1170 ml Output Total 1900 ml 1600 ml Balance -880.0 ml -430 ml Free Water 300 ml IV Total 520.0 ml 150 ml Tube Feeding 500 ml 720 ml Output Urine Total 1900 ml 1600 ml # Bowel Movements 3 5 Dressing: saturated Cardiovascular: RSR Respiratory: decreased breath sounds Abdomen: soft, non-tender, present bowel sounds Extremities: edema, cyanosis, other Laboratory Tests Test 01/23/20 12:00 01/24/20 04:00 01/24/20 10:14 Miscellaneous Test Pending White Blood Count 7.4 K/UL (4.8-10.8) Red Blood Count 2.80 M/UL (4.20-5.40) L Hemoglobin 8.2 G/DL (12.0-16.0) L Hematocrit 25.0 % (37.0-47.0) L Mean Corpuscular Volume 89 FL (80-99) Mean Corpuscular Hemoglobin 29.1 PG (27.0-31.0) Mean Corpuscular Hemoglobin Concent 32.6 G/DL (32.0-36.0) Red Cell Distribution Width 18.8 % (11.6-14.8) H Platelet Count 223 K/UL (150-450) Mean Platelet Volume 7.1 FL (6.5-10.1) Neutrophils (%) (Auto) 81.6 % (45.0-75.0) H Lymphocytes (%) (Auto) 8.4 % (20.0-45.0) L Monocytes (%) (Auto) 7.9 % (1.0-10.0) Eosinophils (%) (Auto) 0.6 % (0.0-3.0) Basophils (%) (Auto) 1.6 % (0.0-2.0) Sodium Level 141 MMOL/L (136-145) Potassium Level 4.3 MMOL/L (3.5-5.1) Chloride Level 107 MMOL/L (98-107) Carbon Dioxide Level 25 MMOL/L (21-32) Anion Gap 9 mmol/L (5-15) Blood Urea Nitrogen 48 mg/dL (7-18) H Creatinine 1.7 MG/DL (0.55-1.30) H Estimat Glomerular Filtration Rate 30.0 mL/min (>60) Glucose Level 142 MG/DL (74-106) H Lactic Acid Level 1.80 mmol/L (0.4-2.0) Calcium Level 9.0 MG/DL (8.5-10.1) Arterial Blood pH 7.410 (7.350-7.450) Arterial Blood Partial Pressure CO2 41.6 mmHg (35.0-45.0) Arterial Blood Partial Pressure O2 99.2 mmHg (75.0-100.0) Arterial Blood HCO3 25.8 mmol/L (22.0-26.0) Arterial Blood Oxygen Saturation 97.1 % (95-100) Arterial Blood Base Excess 1 (-2-2) Eugene Test Positive Plan Problems: (1) Urinary tract infection (2) CHF exacerbation (3) History of schizophrenia (4) Atrial fibrillation with RVR (5) Schizophrenia (6) GERD (gastroesophageal reflux disease) (7) Smoker (8) Atrial fibrillation with rapid ventricular response (9) Lymphadema (10) COPD (chronic obstructive pulmonary disease) (11) CKD (chronic kidney disease) stage 3, GFR 30-59 ml/min (12) NATALIE (acute kidney injury) (13) Dehydration (14) Dysphagia (15) UTI (urinary tract infection) (16) UGI bleed (17) ESBL (extended spectrum beta-lactamase) producing bacteria infection (18) Constipation (19) Lactic acidosis (20) Tinea cruris (21) Onychomycosis (22) Emesis (23) Essential hypertension (24) Anemia (25) Cough (26) Depression (27) Depression (28) Edema (29) Rash (30) Opiate dependence (31) Opiate dependence (32) Opiate dependence (33) Opiate dependence (34) Pyelonephritis (35) Sepsis (36) UTI (urinary tract infection) (37) Nausea and vomiting (38) Abdominal pain Assessment & Plan: [age]-year-old female obese white abdominal pain deep tissue injury identified limited mobility on HD. KUB noted tube in place continue meds feeds Does not seem obstructed We will monitor lines noted. plan change resume tube feeds labs okay FINDINGS: Lower thorax: Obscuration of the left costophrenic angle suggestive of pleural effusion. Intraperitoneal space: No free air. Gastrointestinal tract: Unremarkable. No dilation. Bones/joints: Unremarkable. Tubes, lines and devices: The nasogastric tube has the tip at the mid inferior aspect of the gastric body. Other findings: Nonspecific gas pattern. Single frontal view of the abdomen demonstrates tip of the enteric tube and distal side-port projecting over the stomach. Gas is identified within the nondistended large bowel. There is a paucity of small bowel gas seen. Partially visualized left pleural effusion. No other significant interval change. (39) Chest pain (40) Chest pain (41) Nausea (42) Obesity (43) Chronic ulcer of leg (44) Chronic ulcer of leg (45) Chronic ulcer of leg (46) ACS (acute coronary syndrome) (47) Acute chest pain (48) Encounter for dressing change or suture removal (49) Left leg cellulitis (50) Acute encephalopathy (51) Encounter for wound re-check (52) Intractable nausea and vomiting (53) Infection due to ESBL-producing Escherichia coli (54) Chronic venous stasis (55) Change of dressing (56) Change of dressing (57) Change of dressing (58) Change of dressing (59) Change of dressing (60) Change of dressing (61) Change of dressing (62) Change of dressing (63) ESBL urine (64) Lymphadema (65) Lymphedema (66) Lymphedema (67) Lymphedema (68) Lymphedema (69) Lymphedema (70) Lymphedema (71) Lymphedema (72) Lymphedema (73) Open wound of foot (74) Open wound of foot (75) cellulitis (76) chronic lymphedema (77) chronic lymphedema (78) chronic lymphedema (79) hypertension uncontrolled (80) hypertension uncontrolled (81) Intertrigo (82) Sciatica (83) Cellulitis (84) Schizophrenia (85) Chronic bronchitis (86) HTN (hypertension) (87) Venous stasis ulcers (88) Medication refill (89) Chest pain, atypical (90) BMI 45.0-49.9, adult (91) Lymphedema of both lower extremities (92) hypertension uncontrolled (93) hypertension uncontrolled (94) hypertension uncontrolled (95) tenia corpus (96) Deep tissue injury Assessment & Plan: Morbidly obese pt whom presented on admission with Pressure injuries, Edemae bilat lower extremities eschar to dorsal aspects of metatarsals. Pt is very demanding of staff and can be resistive to repositioning. DTPI noted to L Sacrum(L)5.5cm x (W)2.5cm. Base of Pressure Injury is Maroon and indurated with surrounding non-blanchable erythema DTPI R Sacrum(L)5.5cm x (W)2.3cm. Base of Pressure Injury is maroon with purpuric center that is fluctuant. Pt complained of tenderness when minimally palpated. Bilat lower extremities are edematous . Dry eschar noted to nail matrix and tip of L 1st metatarsal, Dorsal L 2nd metatarsal, R 2nd and R 4th metatarsals. Both heels are boggy with non-Blanchable erythema. blisters forming on Right lower extremity anterior tibia. not infected cellulitis / edema on b/l le stable cont abx Tx.Plan: Apply Moisture Barrier Paste to Sacrum R and L gluteal cheeks. Cover with Optifoam drsgs. Change every 3 days and prn. Apply Betadine to dry eschar metatarsals both feet Daily. Apply Cavilon Skin Barrier to both heels. Cover each heel with Optifoam drsgs. Change every 7days and prn. Reposition at least every 2hours or as tolerated. Off-load heels with pillow. right leg hematoma stable critically ill and edema on right leg has compromised dermis over the hematoma. will likely need debridement once improved (97) COVID-19 Assessment & Plan: ++ on vent weaning abx as per ID (98) Respiratory failure Assessment & Plan: not able to wean safely will plan for trach case discussed with medical team, pulm, icu. recommended to trach given medical condition. medically indicated and recommended. s/p trach 01/08 s/p trach more comfortable less agitated on vent weaning here is complete or near complete opacification of left hemithorax. There is increasing pleural fluid on the right. Interstitial and airspace disease on the right is unchanged. Tracheostomy is again demonstrated Impression: Complete or near complete opacification left hemithorax. This may indicate rapidly accumulating pleural effusion, versus atelectatic left lung. chest tube 01/17 left chest tube to water seal am cxr (99) Pneumonia Juan Manuel Buckner Jan 24, 2020 12:00
--- NOTE | 2020-01-24 12:00 | NUR ---
NURSE NOTES: Patient repositioned at this time. Oral care performed. Addendum: 01/24/20 at 1953 by RAIN FELIPE RN Fever reported to Dr. Coronel.
[2020-01-24] MEDS: LORazepam 0.5mg tab GT PRN ×2 (12:02→21:14)
--- NOTE | 2020-01-24 12:31 | General Progress Note ---
Subjective ROS Limited/Unobtainable: No Allergies: Coded Allergies: ERYTHROMYCIN BASE (Verified Allergy, Severe, 12/12/19) HALOPERIDOL (Verified Allergy, Unknown, 12/12/19) VANCOMYCIN (Unverified Adverse Reaction, Intermediate, Shortness of Breath, 12/12/19) Objective Last 24 Hour Vital Signs Date Time Temp Pulse Resp B/P (MAP) Pulse Ox O2 Delivery O2 Flow Rate FiO2 01/24/20 12:02 128 18 140/75 98 01/24/20 12:01 128 140/75 01/24/20 12:00 Mechanical Ventilator 01/24/20 12:00 100.7 126 23 140/75 (96) 98 01/24/20 12:00 117 01/24/20 12:00 50 01/24/20 11:00 124 22 128/115 (119) 98 01/24/20 10:00 101.7 01/24/20 10:00 101.7 01/24/20 10:00 114 18 126/78 (94) 100 01/24/20 09:35 144 155/110 01/24/20 09:00 136 23 148/88 (108) 98 01/24/20 09:00 101.0 01/24/20 08:40 160 144/91 01/24/20 08:39 160 144/91 01/24/20 08:00 100.8 01/24/20 08:00 133 24 141/91 (108) 99 01/24/20 08:00 50 01/24/20 08:00 Mechanical Ventilator 01/24/20 08:00 151 01/24/20 07:00 139 24 121/83 (96) 98 01/24/20 06:55 151 27 50 01/24/20 06:30 140 25 96/73 (81) 97 01/24/20 06:00 122 26 142/55 (84) 98 01/24/20 05:50 134 147/93 01/24/20 05:30 120 25 147/93 (111) 01/24/20 05:00 137 26 153/67 (95) 80 01/24/20 04:30 116 129/73 (91) 81 01/24/20 04:00 99.8 113 97/82 (87) 99 01/24/20 04:00 128 01/24/20 04:00 Mechanical Ventilator 01/24/20 04:00 50 01/24/20 03:30 108 117/64 (81) 90 01/24/20 03:10 125 30 50 01/24/20 03:00 141 151/75 (100) 97 01/24/20 02:30 143 28 125/80 (95) 77 01/24/20 02:00 138 28 138/68 (91) 84 01/24/20 01:30 128 23 125/94 (104) 95 01/24/20 01:00 126 25 121/63 (82) 97 01/24/20 00:30 122 24 127/94 (105) 95 01/24/20 00:00 50 01/24/20 00:00 135 01/24/20 00:00 100.0 128 26 124/66 (85) 92 01/24/20 00:00 Mechanical Ventilator 01/23/20 23:35 137 108/69 01/23/20 23:30 123 19 108/69 (82) 95 01/23/20 23:00 118 19 107/62 (77) 97 01/23/20 22:47 117 20 99 Mechanical Ventilator 50 116 22 50 01/23/20 22:30 133 25 132/68 (89) 95 01/23/20 22:00 135 24 121/68 (85) 90 01/23/20 21:30 143 24 143/64 (90) 98 01/23/20 21:18 147 140/67 01/23/20 21:00 128 23 140/67 (91) 99 01/23/20 20:30 144 26 126/77 (93) 91 01/23/20 20:00 130 01/23/20 20:00 Mechanical Ventilator 01/23/20 20:00 100.0 01/23/20 20:00 99.8 125 21 125/70 (88) 100 01/23/20 20:00 50 01/23/20 19:30 136 25 139/65 (89) 96 01/23/20 19:00 116 23 115/64 (81) 93 01/23/20 18:52 122 110/54 01/23/20 18:36 129 20 50 01/23/20 18:00 100.4 117 20 123/60 (81) 100 01/23/20 17:00 100.3 124 23 118/52 (74) 99 01/23/20 16:00 100.6 134 24 114/68 (83) 01/23/20 16:00 Mechanical Ventilator 01/23/20 16:00 50 01/23/20 15:55 119 24 100 Mechanical Ventilator 50 135 22 50 01/23/20 15:43 133 01/23/20 15:00 116 22 109/63 (78) 01/23/20 14:00 121 21 122/73 (89) 96 01/23/20 13:03 99.4 01/23/20 13:00 129 28 112/90 (97) 97 Intake and Output 01/23/20 01/24/20 19:00 07:00 Intake Total 1020.0 ml 1170 ml Output Total 1900 ml 1600 ml Balance -880.0 ml -430 ml Free Water 300 ml IV Total 520.0 ml 150 ml Tube Feeding 500 ml 720 ml Output Urine Total 1900 ml 1600 ml # Bowel Movements 3 5 Laboratory Tests 01/24/20 04:00: White Blood Count 7.4, Red Blood Count 2.80L, Hemoglobin 8.2L, Hematocrit 25.0L, Mean Corpuscular Volume 89, Mean Corpuscular Hemoglobin 29.1, Mean Corpuscular Hemoglobin Concent 32.6, Red Cell Distribution Width 18.8H, Platelet Count 223, Mean Platelet Volume 7.1, Neutrophils (%) (Auto) 81.6H, Lymphocytes (%) (Auto) 8.4L, Monocytes (%) (Auto) 7.9, Eosinophils (%) (Auto) 0.6, Basophils (%) (Auto) 1.6, Sodium Level 141, Potassium Level 4.3, Chloride Level 107, Carbon Dioxide Level 25, Anion Gap 9, Blood Urea Nitrogen 48H, Creatinine 1.7H, Estimat Glomerular Filtration Rate 30.0, Glucose Level 142H, Lactic Acid Level 1.80, Calcium Level 9.0 01/24/20 10:14: Arterial Blood pH 7.410, Arterial Blood Partial Pressure CO2 41.6, Arterial Bloo d Partial Pressure O2 99.2, Arterial Blood HCO3 25.8, Arterial Blood Oxygen Saturation 97.1, Arterial Blood Base Excess 1, Eugene Test Positive Height (Feet): 5 Height (Inches): 6.00 Weight (Pounds): 343 General Appearance: no apparent distress EENT: normal ENT inspection Neck: supple Cardiovascular: normal rate Respiratory/Chest: decreased breath sounds Abdomen: soft, hypoactive bowel sounds Extremities: non-tender Assessment/Plan Problem List: (1) CKD (chronic kidney disease) stage 3, GFR 30-59 ml/min ICD Codes: N18.3 - Chronic kidney disease, stage 3 (moderate) SNOMED: 089422720 (2) COPD (chronic obstructive pulmonary disease) ICD Codes: J44.9 - Chronic obstructive pulmonary disease, unspecified SNOMED: 74292193 (3) Smoker ICD Codes: F17.200 - Nicotine dependence, unspecified, uncomplicated SNOMED: 37795898 (4) GERD (gastroesophageal reflux disease) ICD Codes: K21.9 - Gastro-esophageal reflux disease without esophagitis SNOMED: 877429940 (5) Atrial fibrillation with RVR ICD Codes: I48.91 - Unspecified atrial fibrillation SNOMED: 559829537769522 Status: stable Assessment/Plan: fu H&H monitor labs bowel regimen>>>will dc given diarrhea fu cardiology recs icu care ppi cbc in am s/p Trach and PEG GTF monitor for residuals Mervin Victoria MD Jan 24, 2020 12:31
--- NOTE | 2020-01-24 14:29 | NUR ---
CASE MANAGEMENT:REVIEW SI;RESPIRATORY FAILURE. FUNGEMIA. UTI. 101.7 151 30 96/73 97% TRACH/VENT FIO2 @ 50% H/H 8.2/25.0 BUN 48 CR 1.7 IS;DILTIAZEM IV Q23 LOPRESSOR IV Q5 MIN FOR HR >120 LOPRESSOR GT Q12 MINOCIN GT Q12 MEROPENEM IV Q12 ATIVAN GT Q6 PRN MICAFUNGIN IV Q24 LINEZOLID IV Q12 LOVENOX SUBQ Q12 REGLAN IV Q6 PROTONIX IV Q12 ICU STATUS DCP;FROM HOME
--- NOTE | 2020-01-24 14:30 | NUR ---
NURSE NOTES: Scheduled medications given. HR elevated. Addendum: 01/24/20 at 1953 by RAIN FELIPE RN Tylenol given at this time as well.
--- NOTE | 2020-01-24 14:47 | NUR ---
PHYSICAL THERAPY PROFESSOR NOTE CALL MADE TO YUDELKA FARAH AT [facility] [phone] IN RE TO POSSIBLE LTACH. NO ANSWER AT TIME OF CALL. VM LEFT REQUESTING CALL BACK. WILL FOLLOW UP.
--- NOTE | 2020-01-24 14:59 | Diagnostic Imaging Report ---
Indication: Shortness of breath Technique: One view of the chest Comparison: 01/23/2020 Findings: Bilateral interstitial congestion and right pleural effusion are unchanged. The heart remains enlarged. Tracheostomy again demonstrated Impression: Unchanged, over one day, findings as above.
--- NOTE | 2020-01-24 16:00 | NUR ---
NURSE NOTES: Patient has sustained fever. Unable to give tylenol at this time. Cooling measures applied. Will give Meropenem.
--- NOTE | 2020-01-24 16:08 | Infectious Diseases Prog Note ---
Assessment/Plan Assessment/Plan ASSESSMENT AND PLAN: 1. MDR acinetobacter pna - S-minocycline, I-colistin, polymyxin hx esbl e.coli uti/pyelonephritis, sepsis, leukocytosis, fevers mrsa and vre colonization, NATALIE, respiratory distress/failure Fungemia - + yeast in blood - s/p micafungin, surveillance blood cultures negative hx mrsa pna/acinetobacter pna hx VRE uti covid-19 infection right leg swelling and redness noted, ? cellulitis, ? infected hematoma, ? wound infection esbl empyema, + yeast/enterococcus, s/p chest tube but now removed - minocycline, meropenem, zyvox, micafungin - s/p remdesivir, s/p dexamethasone - monitor labs and chest x-ray, monitor fevers - ? debridement right leg per surgery when patient stable - d/w surgery, no intervention at this time - d/w RN 2. Chronic kidney failure, acute renal failure. 3. COPD. 4. Pulmonary followup. 5. Renal followup. 6. History of falls. 7. Atrial fibrillation. Cardiology followup. 8. Obesity. 9. Gait disorder. 10. Schizophrenia. 11. Homeless. 12. Allergic to erythromycin, haloperidol, and vancomycin. 13. Social history is negative. 14. Family history is noncontributory. 15. MAR is noted. 16. Case discussed with RN. 17. Continue treatment per Dr. Dmuont and consultants. Subjective Constitutional: Reports: fever, other - no pressors HEENT: Reports: congestion Respiratory: Denies: shortness of breath Cardiovascular: Reports: other - no pressors Gastrointestinal/Abdominal: Denies: nausea, vomiting, diarrhea Genitourinary: Reports: other - + trivedi Psychiatric: Reports: other - NA Skin: Denies: rash Hematologic: Denies: bleeding Musculoskeletal: Reports: other - NA Allergies: Coded Allergies: ERYTHROMYCIN BASE (Verified Allergy, Severe, 12/12/19) HALOPERIDOL (Verified Allergy, Unknown, 12/12/19) VANCOMYCIN (Unverified Adverse Reaction, Intermediate, Shortness of Breath, 12/12/19) Objective Last 24 Hour Vital Signs Date Time Temp Pulse Resp B/P (MAP) Pulse Ox O2 Delivery O2 Flow Rate FiO2 01/24/20 15:00 100.5 123 23 157/84 (108) 97 01/24/20 14:00 126 25 156/85 (108) 96 01/24/20 13:00 119 26 133/79 (97) 96 01/24/20 12:02 128 18 140/75 98 01/24/20 12:01 128 140/75 01/24/20 12:00 Mechanical Ventilator 01/24/20 12:00 100.7 126 23 140/75 (96) 98 01/24/20 12:00 117 01/24/20 12:00 50 01/24/20 11:00 124 22 128/115 (119) 98 01/24/20 10:00 101.7 01/24/20 10:00 101.7 01/24/20 10:00 114 18 126/78 (94) 100 01/24/20 09:35 144 155/110 01/24/20 09:00 136 23 148/88 (108) 98 01/24/20 09:00 101.0 01/24/20 08:40 160 144/91 01/24/20 08:39 160 144/91 01/24/20 08:00 100.8 01/24/20 08:00 133 24 141/91 (108) 99 01/24/20 08:00 50 01/24/20 08:00 Mechanical Ventilator 01/24/20 08:00 151 01/24/20 07:00 139 24 121/83 (96) 98 01/24/20 06:55 151 27 50 01/24/20 06:30 140 25 96/73 (81) 97 01/24/20 06:00 122 26 142/55 (84) 98 01/24/20 05:50 134 147/93 01/24/20 05:30 120 25 147/93 (111) 01/24/20 05:00 137 26 153/67 (95) 80 01/24/20 04:30 116 129/73 (91) 81 01/24/20 04:00 99.8 113 97/82 (87) 99 01/24/20 04:00 128 01/24/20 04:00 Mechanical Ventilator 01/24/20 04:00 50 01/24/20 03:30 108 117/64 (81) 90 01/24/20 03:10 125 30 50 01/24/20 03:00 141 151/75 (100) 97 01/24/20 02:30 143 28 125/80 (95) 77 01/24/20 02:00 138 28 138/68 (91) 84 01/24/20 01:30 128 23 125/94 (104) 95 01/24/20 01:00 126 25 121/63 (82) 97 01/24/20 00:30 122 24 127/94 (105) 95 01/24/20 00:00 50 01/24/20 00:00 135 01/24/20 00:00 100.0 128 26 124/66 (85) 92 01/24/20 00:00 Mechanical Ventilator 01/23/20 23:35 137 108/69 01/23/20 23:30 123 19 108/69 (82) 95 01/23/20 23:00 118 19 107/62 (77) 97 01/23/20 22:47 117 20 99 Mechanical Ventilator 50 116 22 50 01/23/20 22:30 133 25 132/68 (89) 95 01/23/20 22:00 135 24 121/68 (85) 90 01/23/20 21:30 143 24 143/64 (90) 98 01/23/20 21:18 147 140/67 01/23/20 21:00 128 23 140/67 (91) 99 01/23/20 20:30 144 26 126/77 (93) 91 01/23/20 20:00 130 01/23/20 20:00 Mechanical Ventilator 01/23/20 20:00 100.0 01/23/20 20:00 99.8 125 21 125/70 (88) 100 01/23/20 20:00 50 01/23/20 19:30 136 25 139/65 (89) 96 01/23/20 19:00 116 23 115/64 (81) 93 01/23/20 18:52 122 110/54 01/23/20 18:36 129 20 50 01/23/20 18:00 100.4 117 20 123/60 (81) 100 01/23/20 17:00 100.3 124 23 118/52 (74) 99 Height (Feet): 5 Height (Inches): 6.00 Weight (Pounds): 343 General Appearance: other - on vent, no pressors, + fevers, covid-19 isolation HEENT: normocephalic, atraumatic, anicteric, status post trach Respiratory/Chest: other - on vent Cardiovascular: normal rate, tachycardia, other - no pressors Abdomen: other - no rectal tube Genitourinary: other - + trivedi Extremities: no cyanosis Skin: no rash Neurologic/Psychiatric: other - lethargic, weak, on vent Lymphatic: other - NA Musculoskeletal: other - NA Chest x-ray - 11/17/19 - Procedure: XRAY Chest 1v Indication: Shortness of breath Technique: One view of the chest Comparison: 12/17/2019 Findings: The heart is enlarged. There is bilateral interstitial and airspace disease is again demonstrated, probably unchanged allowing for differences in degree of inspiration. Impression: Unchanged, over one day, findings as above. Chest x-ray - 12/21/19 - Procedure: XRAY Chest 1v Indication: Shortness of breath Technique: One view of the chest Comparison: 12/19/2019 Findings: The heart is enlarged. Bilateral extensive infiltrates are again demonstrated, stable to slightly worse allowing for differences in exposure technique. There is suggestion of increasing pleural fluid on the left. Nasogastric tube is again demonstrated. Impression: Stable to worsened bilateral extensive infiltrates, since exam of 2 days prior Increasing left pleural effusion Chest x-ray - 12/23/19 - IMPRESSION: 1. No significant interval change from the prior chest x-ray. 2. Persistent moderate left pleural effusion and mild right pleural effusion. 3. Pulmonary vascular congestion. 4. Persistent opacity in the left lung base, which may represent atelectasis versus pneumonia. Chest x-ray - 12/25/19 - Procedure: XRAY Chest 1v Procedure: XRAY Chest 1v Reason for study: Reason For Exam: SOB Comparison films: 12/24/2019. FINDINGS: The tracheal tube and NG tube remain in place. Vascular prominence and bilateral hazy alveolar densities are unchanged. Cardiomegaly and small effusions also unchanged. The bony thorax appear unremarkable. IMPRESSION: NO SIGNIFICANT CHANGE COMPARED TO PREVIOUS EXAM. 12/26/19 - Procedure: XRAY Chest 1v Procedure: XRAY Chest 1v Reason for study: Reason For Exam: SOB Comparison films: 12/25/2019. FINDINGS: Endotracheal tube and NG tube remain in place. Hazy bilateral alveolar densities are essentially unchanged given the difference in technique. Cardiomegaly and right effusion again noted. The bony thorax appear unremarkable. IMPRESSION: NO SIGNIFICANT CHANGE COMPARED TO PREVIOUS EXAM. Chest x-ray - 12/28/19 - Procedure: XRAY Chest 1v Indication: Reason For Exam: SOB Technique: Single AP view of the chest. Comparison: Chest radiograph dated 12/27/2019 Findings: Exam is again noted to be diagnostically limited due to underpenetration, patient rotation, and exclusion of part of the left hemithorax from the [id number]. Within these limitations: No significant change in appearance of visualized cardiomediastinal silhouette. Unchanged layering right pleural effusion with associated basilar airspace opacities. Likely retrocardiac consolidation, unchanged. No apical pneumothoraces. Unchanged enteric and endotracheal tubes. Unchanged left PICC. Chest x-ray - 12/30/19 - FINDINGS: Distal tip of ET tube is above devika. Distal tip of the enteric tube is in stomach. Stable left arm PICC line with distal tip likely in the left subclavian vein. Cardiac silhouette is within normal limits allowing for portable and rotated technique. Low lung volumes with elevated left hemidiaphragm. Again noted is a moderate right effusion with patchy infiltrates in the right mid to lower lung. Probable retrocardiac infiltrates. IMPRESSION: Little interval change in moderate right effusion and pneumonia/aspiration. Suspected retrocardiac infiltrate. The distal tip of the left arm PICC line is not well seen past the level of the left mid subclavian vein. Mead location is in the cavoatrial junction. Recommend advancement. <MYCVCSECTION> Chest x-ray - 01/04/20 - Procedure: XRAY Chest 1v Indication: Dyspnea Technique: One view of the chest Comparison: 01/02/2020 Findings: Bilateral interstitial and airspace congestion, right pleural effusion, cardiomegaly persists, unchanged. Tube and line positions are unchanged Impression: Unchanged, over one day, findings as above. Chest x-ray - 01/06/20 - IMPRESSION: 1. Endotracheal tube terminates in the region of the lower thoracic trachea, approximately 2.6 cm above the devika. Enteric tube is difficult to visualize distally. 2. Similar opacities predominantly in the mid and lower lungs which may represent combination of pleural effusions and atelectasis versus pneumonia versus edema. Chest x-ray - 01/07/20 - Procedure: XRAY Chest 1v Indication: Shortness of breath Technique: One view of the chest Comparison: 01/06/2020 Findings: Stable satisfactory positions of endotracheal and orogastric tubes. Mild interstitial congestion and hazy ankle opacities are again demonstrated bilaterally. There appears to be a small amount of pleural fluid bilaterally, probably unchanged. Impression: Unchanged, over one day, findings as above. Chest x-ray - 01/10/20 - Procedure: XRAY Chest 1v Indication: There is a breath Technique: One view of the chest Comparison: 01/08/2020 Findings: Interim conversion of endotracheal tube to a tracheostomy, appearing well positioned. Orogastric tube remains. Bilateral interstitial and airspace infiltrates versus edema persists, unchanged. Small bilateral pleural effusions persist, unchanged. Impression: Interim tracheostomy placement. No radiographically evident c omplication Stable bilateral pleural and parenchymal disease Chest x-ray - 01/13/20 - FINDINGS/IMPRESSION: Midline tracheostomy tube. Left upper extremity PICC line terminates in the left brachycephalic vein, unchanged. Mild-moderate vascular congestion, which is mildly increased when compared to January 10, 2020. Moderate left pleural effusion, which has mildly increased when compared to January 10, 2020. No pneumothorax. Cardiomegaly. Calcified aorta. Chest x-ray - 01/16/20 - Procedure: XRAY Chest 1v Indication: Shortness of breath Technique: One view of the chest Comparison: 01/15/2020 Findings: Bilateral interstitial and airspace infiltrates versus edema appears slightly increased from the prior exam. Right pleural effusion appears slightly increased. Left pleural fluid probably present, smaller than the right, stable. The heart remains enlarged. Tracheostomy, left arm PICC remain. Impression: Slightly increased pulmonary infiltrates versus edema and right pleural effusion, over one day Chest x-ray - 01/20/20 - Procedure: XRAY Chest 1v INDICATION: status post tracheostomy. COMPARISON: Same day chest radiograph at 7:51 Findings/impression: Single portable frontal view demonstrates a tracheostomy. There are low lung volumes. Again identified is complete opacification of the left thorax. Interval worsening airspace opacities throughout the right lung. Small to moderate right pleural effusion. Stable cardiomegaly. No clinically significant pneumothorax. Unchanged positioning of the left upper extremity PICC line. Chest x-ray - 01/22/20 - Procedure: XRAY Chest 1v Indication: Shortness of breath Technique: One view of the chest Comparison: 01/21/2020 Findings: Left chest tube is again demonstrated. There is suggestion of slightly increased right pleural effusion, although apparent increase may in part be an artifact of increased patient rotation. Generalized mild congestive changes bilaterally are stable. Tracheostomy remains. Impression: Possibly increased right pleural effusion. Otherwise little exchange operator one day Chest x-ray - 01/24/20 - Procedure: XRAY Chest 1v Indication: Shortness of breath Technique: One view of the chest Comparison: 01/23/2020 Findings: Bilateral interstitial congestion and right pleural effusion are unchanged. The heart remains enlarged. Tracheostomy again demonstrated Impression: Unchanged, over one day, findings as above. Microbiology Date/Time Source Procedure Growth Status 01/21/20 12:51 Indwelling Cath Urine Culture - Final NO GROWTH AFTER 48 HOURS Complete 01/21/20 12:40 Blood Blood Culture - Preliminary NO GROWTH AFTER 48 HOURS Resulted 01/18/20 04:00 Nasopharynx Coronavirus COVID-19 PCR ([facility]) - Final Complete 01/16/20 15:25 Body Fluid AFB Specimen Processing Tissue - Final Resulted 01/16/20 15:25 Body Fluid Acid Fast Bacilli Smear - Final Resulted 01/16/20 15:25 Body Fluid Acid Fast Bacilli Culture Pending Resulted 01/11/20 04:20 Stool Clostridium difficile Toxin Assay - Final Complete 12/12/19 21:00 Rectum - Final NO CARBAPENEM-RESISTANT ENTEROBACTERI... Complete Laboratory Tests Test 01/24/20 04:00 01/24/20 10:14 White Blood Count 7.4 K/UL (4.8-10.8) Red Blood Count 2.80 M/UL (4.20-5.40) L Hemoglobin 8.2 G/DL (12.0-16.0) L Hematocrit 25.0 % (37.0-47.0) L Mean Corpuscular Volume 89 FL (80-99) Mean Corpuscular Hemoglobin 29.1 PG (27.0-31.0) Mean Corpuscular Hemoglobin Concent 32.6 G/DL (32.0-36.0) Red Cell Distribution Width 18.8 % (11.6-14.8) H Platelet Count 223 K/UL (150-450) Mean Platelet Volume 7.1 FL (6.5-10.1) Neutrophils (%) (Auto) 81.6 % (45.0-75.0) H Lymphocytes (%) (Auto) 8.4 % (20.0-45.0) L Monocytes (%) (Auto) 7.9 % (1.0-10.0) Eosinophils (%) (Auto) 0.6 % (0.0-3.0) Basophils (%) (Auto) 1.6 % (0.0-2.0) Sodium Level 141 MMOL/L (136-145) Potassium Level 4.3 MMOL/L (3.5-5.1) Chloride Level 107 MMOL/L (98-107) Carbon Dioxide Level 25 MMOL/L (21-32) Anion Gap 9 mmol/L (5-15) Blood Urea Nitrogen 48 mg/dL (7-18) H Creatinine 1.7 MG/DL (0.55-1.30) H Estimat Glomerular Filtration Rate 30.0 mL/min (>60) Glucose Level 142 MG/DL (74-106) H Lactic Acid Level 1.80 mmol/L (0.4-2.0) Calcium Level 9.0 MG/DL (8.5-10.1) Arterial Blood pH 7.410 (7.350-7.450) Arterial Blood Partial Pressure CO2 41.6 mmHg (35.0-45.0) Arterial Blood Partial Pressure O2 99.2 mmHg (75.0-100.0) Arterial Blood HCO3 25.8 mmol/L (22.0-26.0) Arterial Blood Oxygen Saturation 97.1 % (95-100) Arterial Blood Base Excess 1 (-2-2) Eugene Test Positive Current Medications Medications (Trade) Dose Ordered Sig/Shiraz Route PRN Reason Start Time Stop Time Status Last Admin Dose Admin Acetaminophen (Tylenol) 650 mg Q4H PRN GT Mild Pain (Pain Scale 1-3) 01/12/20 10:00 02/11/20 09:59 01/21/20 11:38 Acetaminophen (Tylenol) 650 mg Q4H PRN GT Temp >100.5 01/12/20 10:00 02/11/20 09:59 01/24/20 14:33 Acetylcysteine (Mucomyst) 200 mg Q6HRT HHN 01/19/20 13:30 04/18/20 13:29 01/23/20 22:46 Albuterol Sulfate (Proventil MDI) 2 puff Q4H PRN INH Shortness of Breath 12/24/19 10:30 03/23/20 10:29 01/12/20 09:44 Ascorbic Acid (Vitamin C) 500 mg BEDTIME GT 01/17/20 21:00 02/16/20 20:59 01/23/20 21:12 Bacitracin (Bacitracin 15gm tube) 1 applic EVERY 12 HOURS TOPIC 01/16/20 11:00 04/15/20 10:59 01/24/20 08:42 Chlorhexidine Gluconate (Jessie-Hex 2%) 1 applic DAILY@1999 TOPIC 12/24/19 20:00 03/23/20 19:59 01/23/20 20:18 Clotrimazole (Lotrimin) 1 applic EVERY 12 HOURS TOPIC 01/05/20 09:00 03/12/20 08:59 01/24/20 08:43 Diltiazem HCl 125 ml @ 0 mls/hr Q24H IVPB 01/24/20 14:00 01/26/20 13:59 01/24/20 14:32 Diltiazem HCl (Cardizem Tab) 90 mg EVERY 6 HOURS ORAL 01/23/20 18:45 02/22/20 18:44 01/24/20 12:01 Enoxaparin Sodium (Lovenox) 60 mg DAILY SUBQ 01/13/20 12:00 04/12/20 11:59 01/24/20 08:40 Epoetin Cristiano (Epoetin Cristiano-EPBX(NON ESRD)) 10,000 unit TUE-TUE-TUE SUBQ 01/23/20 21:00 04/22/20 20:59 01/23/20 21:12 Furosemide (Lasix) 100 mg Q6HR IV 01/23/20 12:00 02/22/20 11:59 01/24/20 12:01 Linezolid 300 ml @ 300 mls/hr EVERY 12 HOURS IVPB 01/24/20 21:00 01/31/20 20:59 Lorazepam (Ativan) 1 mg Q6H PRN GT For Anxiety 01/22/20 00:30 01/29/20 00:29 01/24/20 12:02 Meropenem 1 gm/ Sodium Chloride 100 ml @ 200 mls/hr Q12H IVPB 01/22/20 16:00 01/27/20 15:59 01/24/20 03:34 Metoclopramide HCl (Reglan) 5 mg Q6H IVP 01/05/20 09:15 02/04/20 09:14 01/24/20 14:33 Metoprolol Tartrate (Lopressor) 100 mg EVERY 12 HOURS GT 01/21/20 09:00 04/20/20 08:59 01/24/20 08:40 Micafungin Sodium 100 mg/Sodium Chloride 100 ml @ 100 mls/hr Q24H IVPB 01/20/20 19:00 01/27/20 18:59 01/23/20 18:53 Minocycline HCl (Minocin) 100 mg Q12HR ORAL 01/22/20 21:00 01/29/20 20:59 01/24/20 08:39 Multivitamins (Multivitamins W/ Minerals 15ml Liquid) 15 ml Q24H GT 01/18/20 11:00 02/17/20 10:59 01/24/20 12:00 Pantoprazole (Protonix) 40 mg EVERY 12 HOURS IVP 01/01/20 21:00 01/31/20 20:59 01/24/20 08:39 Polyethylene Glycol (Miralax) 17 gm BEDTIME PRN GT Constipation 01/24/20 21:00 02/23/20 20:59 Quetiapine Fumarate (SEROqueL) 100 mg Q8HR GT 01/23/20 14:00 03/08/20 13:59 01/24/20 14:32 Aleisha Coronel MD Jan 24, 2020 16:08
--- NOTE | 2020-01-24 18:30 | NUR ---
NURSE NOTES: Patient has fever. Tylenol given with scheduled medications.
--- NOTE | 2020-01-24 19:30 | NUR ---
NURSE HAND-OFF REPORT: Latest Vital Signs: Temperature 100.5 , Pulse 110 , B/P 124 /60 , Respiratory Rate 28 , O2 SAT 92 , Mechanical Ventilator, O2 Flow Rate . Vital Sign Comment: STABLE Afib now controlled EKG Rhythm: Atrial Fibrillation Rhythm change?: N Notified?: N -MD Gaviota UNDERWOOD Response: Latest Abreu Fall Score: 75 Fall Risk: High Risk Safety Measures: Call light Within Reach, Bed Alarm Zone 1, Side Rails Side Rails x3, Bed position Low and Locked. Fall Precautions: Yellow Socks Yellow Gown Door Sign Patient Fall Education Report given to Sarah COHEN. Patient stable. Plan of care endorsed. Patient has fever on cooling measures and Tylenol given. C diff sample collected. Two BM's now.
--- NOTE | 2020-01-24 19:30 | NUR ---
NURSE NOTES: Received report from NOEL Thorne. patient in bed obtunded. trach to vent fi02 40% satting 100%. HOB elevated. Temp 100.5 axillary will continue cooling measure. no s/s of acute distress noted. AFIB on institutional asset manager HR 91. Left upper arm PICC line intact infusing Cardizem drip at 15ml/hr BP 130/67. GT intact infusing Glucerna 1.2 at 60cc/hr no residual. Lockett draining. On P200 mattress for wound management. Contact isolation maintained and observed. bilateral wrist restraint intact with episode of pulling out tubing. reality orientation provided.noted with generalized edema+2. dressing intact on right lower leg. bilateral arm and legs elevated with pillows. frequent visual checks continued. will continue plan of care.
[2020-01-24] MEDS ORDERED: Miralax 17gm pkt GT PRN (21:00)
[2020-01-24] MEDS: Dyna-Hex 2% Top Sol 2oz TOPIC SCH (21:14)
[2020-01-24] MEDS: Ascorbic Acid 500mg tab GT SCH (21:15)
--- NOTE | 2020-01-24 21:30 | NUR ---
NURSE NOTES: Patient in bed continue cooling measure. repositioned in bed. On P200 mattress for wound management.
--- NOTE | 2020-01-24 22:23 | Psych Consult Progress Note ---
Psychiatry Progress Note Psychiatry Progress Note Subjective the pt is still pancytopenic the pt is not agitated the pt lethargic Medications Current Medications Medications (Trade) Dose Ordered Sig/Shiraz Route PRN Reason Start Time Stop Time Status Last Admin Dose Admin Acetaminophen (Tylenol) 650 mg Q4H PRN GT Mild Pain (Pain Scale 1-3) 01/12/20 10:00 02/11/20 09:59 01/21/20 11:38 Acetaminophen (Tylenol) 650 mg Q4H PRN GT Temp >100.5 01/12/20 10:00 02/11/20 09:59 01/24/20 18:20 Acetylcysteine (Mucomyst) 200 mg Q6HRT HHN 01/19/20 13:30 04/18/20 13:29 01/23/20 22:46 Albuterol Sulfate (Proventil MDI) 2 puff Q4H PRN INH Shortness of Breath 12/24/19 10:30 03/23/20 10:29 01/12/20 09:44 Ascorbic Acid (Vitamin C) 500 mg BEDTIME GT 01/17/20 21:00 02/16/20 20:59 01/24/20 21:15 Bacitracin (Bacitracin 15gm tube) 1 applic EVERY 12 HOURS TOPIC 01/16/20 11:00 04/15/20 10:59 01/24/20 08:42 Chlorhexidine Gluconate (Jessie-Hex 2%) 1 applic DAILY@1999 TOPIC 12/24/19 20:00 03/23/20 19:59 01/24/20 21:14 Clotrimazole (Lotrimin) 1 applic EVERY 12 HOURS TOPIC 01/05/20 09:00 03/12/20 08:59 01/24/20 08:43 Diltiazem HCl 125 ml @ 0 mls/hr Q24H IVPB 01/24/20 14:00 01/26/20 13:59 01/24/20 14:32 Diltiazem HCl (Cardizem Tab) 90 mg EVERY 6 HOURS ORAL 01/23/20 18:45 02/22/20 18:44 01/24/20 18:21 Enoxaparin Sodium (Lovenox) 60 mg DAILY SUBQ 01/13/20 12:00 04/12/20 11:59 01/24/20 08:40 Epoetin Cristiano (Epoetin Cristiano-EPBX(NON ESRD)) 10,000 unit TUE-TUE-TUE SUBQ 01/23/20 21:00 04/22/20 20:59 01/23/20 21:12 Furosemide (Lasix) 100 mg Q6HR IV 01/23/20 12:00 02/22/20 11:59 01/24/20 18:21 Ipratropium Calder (Atrovent) 500 mcg Q6HRT PRN HHN Shortness of Breath 01/24/20 19:45 01/29/20 19:44 Linezolid 300 ml @ 300 mls/hr EVERY 12 HOURS IVPB 01/24/20 21:00 01/31/20 20:59 01/24/20 21:14 Loperamide HCl (Imodium) 2 mg Q6H NG 01/24/20 20:00 02/23/20 19:59 01/24/20 21:13 Lorazepam (Ativan) 1 mg Q6H PRN GT For Anxiety 01/22/20 00:30 01/29/20 00:29 01/24/20 21:14 Meropenem 1 gm/ Sodium Chloride 100 ml @ 200 mls/hr Q12H IVPB 01/22/20 16:00 01/27/20 15:59 01/24/20 16:20 Metoclopramide HCl (Reglan) 5 mg Q6H IVP 01/05/20 09:15 02/04/20 09:14 01/24/20 21:15 Metoprolol Tartrate (Lopressor) 100 mg EVERY 12 HOURS GT 01/21/20 09:00 04/20/20 08:59 01/24/20 21:15 Micafungin Sodium 100 mg/Sodium Chloride 100 ml @ 100 mls/hr Q24H IVPB 01/20/20 19:00 01/27/20 18:59 01/24/20 18:21 Minocycline HCl (Minocin) 100 mg Q12HR ORAL 01/22/20 21:00 01/29/20 20:59 01/24/20 21:14 Multivitamins (Multivitamins W/ Minerals 15ml Liquid) 15 ml Q24H GT 01/18/20 11:00 02/17/20 10:59 01/24/20 12:00 Pantoprazole (Protonix) 40 mg EVERY 12 HOURS IVP 01/01/20 21:00 01/31/20 20:59 01/24/20 21:14 Polyethylene Glycol (Miralax) 17 gm BEDTIME PRN GT Constipation 01/24/20 21:00 02/23/20 20:59 Quetiapine Fumarate (SEROqueL) 100 mg Q8HR GT 01/23/20 14:00 03/08/20 13:59 01/24/20 21:18 Neurological/Psychiatric: Reports: anxiety, depressed, emotional problems Allergies: Coded Allergies: ERYTHROMYCIN BASE (Verified Allergy, Severe, 12/12/19) HALOPERIDOL (Verified Allergy, Unknown, 12/12/19) VANCOMYCIN (Unverified Adverse Reaction, Intermediate, Shortness of Breath, 12/12/19) Objective Data Height (Feet): 5 Height (Inches): 6.00 Weight (Pounds): 343 General Appearance: no apparent distress Additional Comments: Assessment/Plan Status: stable Assessment/Plan: seroquel 100 tid ativan 1mg q 8 hrs/prn leandro bilat restraints. leandro midazolam Harris Ballesteros MD Jan 24, 2020 22:23
--- NOTE | 2020-01-24 22:26 | Psych Consult Progress Note ---
Psychiatry Progress Note Psychiatry Progress Note Subjective the pt is still pancytopenic the pt is not agitated the pt is less lethargic Medications Current Medications Medications (Trade) Dose Ordered Sig/Shiraz Route PRN Reason Start Time Stop Time Status Last Admin Dose Admin Acetaminophen (Tylenol) 650 mg Q4H PRN GT Mild Pain (Pain Scale 1-3) 01/12/20 10:00 02/11/20 09:59 01/21/20 11:38 Acetaminophen (Tylenol) 650 mg Q4H PRN GT Temp >100.5 01/12/20 10:00 02/11/20 09:59 01/24/20 18:20 Acetylcysteine (Mucomyst) 200 mg Q6HRT HHN 01/19/20 13:30 04/18/20 13:29 01/23/20 22:46 Albuterol Sulfate (Proventil MDI) 2 puff Q4H PRN INH Shortness of Breath 12/24/19 10:30 03/23/20 10:29 01/12/20 09:44 Ascorbic Acid (Vitamin C) 500 mg BEDTIME GT 01/17/20 21:00 02/16/20 20:59 01/24/20 21:15 Bacitracin (Bacitracin 15gm tube) 1 applic EVERY 12 HOURS TOPIC 01/16/20 11:00 04/15/20 10:59 01/24/20 08:42 Chlorhexidine Gluconate (Jessie-Hex 2%) 1 applic DAILY@1999 TOPIC 12/24/19 20:00 03/23/20 19:59 01/24/20 21:14 Clotrimazole (Lotrimin) 1 applic EVERY 12 HOURS TOPIC 01/05/20 09:00 03/12/20 08:59 01/24/20 08:43 Diltiazem HCl 125 ml @ 0 mls/hr Q24H IVPB 01/24/20 14:00 01/26/20 13:59 01/24/20 14:32 Diltiazem HCl (Cardizem Tab) 90 mg EVERY 6 HOURS ORAL 01/23/20 18:45 02/22/20 18:44 01/24/20 18:21 Enoxaparin Sodium (Lovenox) 60 mg DAILY SUBQ 01/13/20 12:00 04/12/20 11:59 01/24/20 08:40 Epoetin Cristiano (Epoetin Cristiano-EPBX(NON ESRD)) 10,000 unit TUE-TUE-TUE SUBQ 01/23/20 21:00 04/22/20 20:59 01/23/20 21:12 Furosemide (Lasix) 100 mg Q6HR IV 01/23/20 12:00 02/22/20 11:59 01/24/20 18:21 Ipratropium [place] (Atrovent) 500 mcg Q6HRT PRN HHN Shortness of Breath 01/24/20 19:45 01/29/20 19:44 Linezolid 300 ml @ 300 mls/hr EVERY 12 HOURS IVPB 01/24/20 21:00 01/31/20 20:59 01/24/20 21:14 Loperamide HCl (Imodium) 2 mg Q6H NG 01/24/20 20:00 02/23/20 19:59 01/24/20 21:13 Lorazepam (Ativan) 1 mg Q6H PRN GT For Anxiety 01/22/20 00:30 01/29/20 00:29 01/24/20 21:14 Meropenem 1 gm/ Sodium Chloride 100 ml @ 200 mls/hr Q12H IVPB 01/22/20 16:00 01/27/20 15:59 01/24/20 16:20 Metoclopramide HCl (Reglan) 5 mg Q6H IVP 01/05/20 09:15 02/04/20 09:14 01/24/20 21:15 Metoprolol Tartrate (Lopressor) 100 mg EVERY 12 HOURS GT 01/21/20 09:00 04/20/20 08:59 01/24/20 21:15 Micafungin Sodium 100 mg/Sodium Chloride 100 ml @ 100 mls/hr Q24H IVPB 01/20/20 19:00 01/27/20 18:59 01/24/20 18:21 Minocycline HCl (Minocin) 100 mg Q12HR ORAL 01/22/20 21:00 01/29/20 20:59 01/24/20 21:14 Multivitamins (Multivitamins W/ Minerals 15ml Liquid) 15 ml Q24H GT 01/18/20 11:00 02/17/20 10:59 01/24/20 12:00 Pantoprazole (Protonix) 40 mg EVERY 12 HOURS IVP 01/01/20 21:00 01/31/20 20:59 01/24/20 21:14 Polyethylene Glycol (Miralax) 17 gm BEDTIME PRN GT Constipation 01/24/20 21:00 02/23/20 20:59 Quetiapine Fumarate (SEROqueL) 100 mg Q8HR GT 01/23/20 14:00 03/08/20 13:59 01/24/20 21:18 Neurological/Psychiatric: Reports: anxiety, depressed, emotional problems Allergies: Coded Allergies: ERYTHROMYCIN BASE (Verified Allergy, Severe, 12/12/19) HALOPERIDOL (Verified Allergy, Unknown, 12/12/19) VANCOMYCIN (Unverified Adverse Reaction, Intermediate, Shortness of Breath, 12/12/19) Objective Data Height (Feet): 5 Height (Inches): 6.00 Weight (Pounds): 343 General Appearance: no apparent distress, alert, confused Additional Comments: Assessment/Plan [place] I: seroquel 125 tid ativan 1mg q 8 hrs/prn dc bilat restraints. dc midazolam Status: stable Status Narrative seroquel 125 tid ativan 1mg q 8 hrs/prn dc bilat restraints. dc midazolam Assessment/Plan: seroquel 75 tid ativan 1mg q 8 hrs/prn dc bilat restraints. leandro midazolam Harris Ballesteros MD Jan 24, 2020 22:26
[2020-01-24] MEDS: Ipratropium 0.02% Inh Soln 2.5ml UD HHN PRN (23:21)
--- NOTE | 2020-01-24 23:30 | NUR ---
NURSE NOTES: Patient in bed no s/s of acute distress noted. Code status DNR, cooling measure continued. frequent visual checks continued. will continue plan of care.
[2020-01-25] VITALS (35 sets, daily range): BP systolic 99–155; BP diastolic 57–127
--- NOTE | 2020-01-25 01:15 | Cardiology Progress Note ---
Subjective DATE OF SERVICE: Jan 24, 2020 Remains in ICU in critical condition with guarded prognosis. Now s/p left thoracotomy/chest tube- since removed. Remains on vent support - s/p trach. BP range remaining low normal range. Remains COVID19 positive. Monitor: AFIb with poor rate control; now placed back on IV cardizem with BBlocker per GTube. Venous Duplex: negative for DVT Renal fxn and free water deficit worsening Lactic acid level has normalized. Objective Last 24 Hour Vital Signs Date Time Temp Pulse Resp B/P (MAP) Pulse Ox O2 Delivery O2 Flow Rate FiO2 01/25/20 00:00 100.0 98 26 116/63 (80) 95 01/25/20 00:00 90 01/25/20 00:00 Mechanical Ventilator 01/25/20 00:00 107 01/24/20 23:25 97 18 40 01/24/20 23:11 96 115/50 01/24/20 23:01 100.7 01/24/20 23:00 95 25 121/67 (85) 99 01/24/20 22:30 96 22 115/50 (71) 99 01/24/20 22:00 111 123/72 (89) 100 01/24/20 21:30 113 128/72 (90) 94 01/24/20 21:15 108 125/74 01/24/20 21:14 108 28 125/74 89 01/24/20 21:00 108 28 125/74 89 01/24/20 21:00 101 125/68 (87) 96 01/24/20 20:00 50 01/24/20 20:00 Mechanical Ventilator 01/24/20 20:00 100.4 108 125/74 (91) 89 01/24/20 19:35 110 28 40 01/24/20 19:30 109 124/60 (81) 92 01/24/20 19:15 102 99 01/24/20 19:00 100.5 106 130/67 (88) 94 01/24/20 18:50 100.5 01/24/20 18:21 121 118/63 01/24/20 18:00 115 27 118/63 (81) 93 01/24/20 18:00 100.8 01/24/20 17:00 120 25 154/71 (98) 94 01/24/20 16:00 109 01/24/20 16:00 Mechanical Ventilator 01/24/20 16:00 110 31 155/76 (102) 95 01/24/20 16:00 50 01/24/20 15:12 104 26 40 01/24/20 15:08 100.5 01/24/20 15:00 100.5 123 23 157/84 (108) 97 01/24/20 14:00 126 25 156/85 (108) 96 01/24/20 13:00 119 26 133/79 (97) 96 01/24/20 12:32 114 18 136/80 97 01/24/20 12:02 128 18 140/75 98 01/24/20 12:01 128 140/75 01/24/20 12:00 Mechanical Ventilator 01/24/20 12:00 100.7 126 23 140/75 (96) 98 01/24/20 12:00 117 01/24/20 12:00 50 01/24/20 11:36 125 24 50 01/24/20 11:00 124 22 128/115 (119) 98 01/24/20 10:00 101.7 01/24/20 10:00 101.7 01/24/20 10:00 114 18 126/78 (94) 100 01/24/20 09:35 144 155/110 01/24/20 09:00 136 23 148/88 (108) 98 01/24/20 09:00 101.0 01/24/20 08:40 160 144/91 01/24/20 08:39 160 144/91 01/24/20 08:00 100.8 01/24/20 08:00 133 24 141/91 (108) 99 01/24/20 08:00 50 01/24/20 08:00 Mechanical Ventilator 01/24/20 08:00 151 01/24/20 07:00 139 24 121/83 (96) 98 01/24/20 06:55 151 27 50 01/24/20 06:30 140 25 96/73 (81) 97 01/24/20 06:00 122 26 142/55 (84) 98 01/24/20 05:50 134 147/93 01/24/20 05:30 120 25 147/93 (111) 01/24/20 05:00 137 26 153/67 (95) 80 10/15/20 04:30 116 129/73 (91) 81 01/24/20 04:00 99.8 113 97/82 (87) 99 01/24/20 04:00 128 01/24/20 04:00 Mechanical Ventilator 01/24/20 04:00 50 01/24/20 03:30 108 117/64 (81) 90 01/24/20 03:10 125 30 50 01/24/20 03:00 141 151/75 (100) 97 01/24/20 02:30 143 28 125/80 (95) 77 01/24/20 02:00 138 28 138/68 (91) 84 01/24/20 01:30 128 23 125/94 (104) 95 ROS: unchanged from 12/12/19 HEENT: Orally intubated, Mechanically Ventilated, Thin secretions ET Tube, other - NGtube RHYTHM: NSR, ST LUNGS: diminished breath sounds, right-sided rhonchi CARDIAC: normal S1 and S2, irregularly irregular ABDOMEN: other - obese EXTREMITIES: moderate edema - mostly non pitting, other - hematoma right leg Laboratory Tests Test 01/24/20 04:00 01/24/20 10:14 White Blood Count 7.4 K/UL (4.8-10.8) Red Blood Count 2.80 M/UL (4.20-5.40) L Hemoglobin 8.2 G/DL (12.0-16.0) L Hematocrit 25.0 % (37.0-47.0) L Mean Corpuscular Volume 89 FL (80-99) Mean Corpuscular Hemoglobin 29.1 PG (27.0-31.0) Mean Corpuscular Hemoglobin Concent 32.6 G/DL (32.0-36.0) Red Cell Distribution Width 18.8 % (11.6-14.8) H Platelet Count 223 K/UL (150-450) Mean Platelet Volume 7.1 FL (6.5-10.1) Neutrophils (%) (Auto) 81.6 % (45.0-75.0) H Lymphocytes (%) (Auto) 8.4 % (20.0-45.0) L Monocytes (%) (Auto) 7.9 % (1.0-10.0) Eosinophils (%) (Auto) 0.6 % (0.0-3.0) Basophils (%) (Auto) 1.6 % (0.0-2.0) Sodium Level 141 MMOL/L (136-145) Potassium Level 4.3 MMOL/L (3.5-5.1) Chloride Level 107 MMOL/L (98-107) Carbon Dioxide Level 25 MMOL/L (21-32) Anion Gap 9 mmol/L (5-15) Blood Urea Nitrogen 48 mg/dL (7-18) H Creatinine 1.7 MG/DL (0.55-1.30) H Estimat Glomerular Filtration Rate 30.0 mL/min (>60) Glucose Level 142 MG/DL (74-106) H Lactic Acid Level 1.80 mmol/L (0.4-2.0) Calcium Level 9.0 MG/DL (8.5-10.1) Arterial Blood pH 7.410 (7.350-7.450) Arterial Blood Partial Pressure CO2 41.6 mmHg (35.0-45.0) Arterial Blood Partial Pressure O2 99.2 mmHg (75.0-100.0) Arterial Blood HCO3 25.8 mmol/L (22.0-26.0) Arterial Blood Oxygen Saturation 97.1 % (95-100) Arterial Blood Base Excess 1 (-2-2) Eugene Test Positive Assessment/Plan Assessment/Plan CRITICAL AND GUARDED Left lung opacification - s/p chest tube placement 01/18/20. Acute respiratory failure - s/p trach Acute on chronic respiratory acidosis AFiB with labile heart rates, and now persistent RVR. CHF, ac/chr diastolic BLE edema Sepsis with shock obesity COPD with bronchospasm Acute renal failure - worsening Pleural effusion GI bleeding Anemia - multifactorial, now worse Covid 19 PNA Hyperkalemia Recurring lactic acidosis Dehydration/hypernatremia Hypertension/HHD with labile BP - now stable range. Vent support Chest tube management Titrate beta yves; taper IV diltiazem doses, as oral dose is uptitrated. Hold diuretic dosing for 24hrs and reassess. Consider PRBC transfusion for hb below 7gm/dl Monitor acid/base parameters. 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
--- NOTE | 2020-01-25 01:30 | NUR ---
NURSE NOTES: Bed bath given with diarrhea. cooling mattress placed in bed. Temp 99.0 rectal. kept clean and dry. will continue plan of care.
[2020-01-25] MEDS: Metoclopramide 10mg/2ml Inj IVP SCH ×4 (02:35→20:28)
--- NOTE | 2020-01-25 03:30 | NUR ---
NURSE NOTES: Patient in bed awake no s/s of acute distress noted. on Cardizem drip at 15mls/hr HR 100. no fever. no n/v. frequent visual checks continued.
[2020-01-25 04:48] LABS: HEMATOCRIT 24.4 % (37.0-47.0); HEMOGLOBIN 7.8 G/DL (12.0-16.0); MEAN CORPUSCULAR VOLUME 89 FL (80-99); PLATELET COUNT 208 K/UL (150-450); RED BLOOD COUNT 2.73 M/UL (4.20-5.40); RED CELL DISTRIBUTION WIDTH 18.8 % (11.6-14.8); WHITE BLOOD COUNT 6.9 K/UL (4.8-10.8)
[2020-01-25 05:05] LABS: ALBUMIN 1.5 G/DL (3.4-5.0); ALBUMIN/GLOBULIN RATIO 0.3 (1.0-2.7); BILIRUBIN,TOTAL 0.5 MG/DL (0.2-1.0); CALCIUM 8.8 MG/DL (8.5-10.1); CREATININE 1.4 MG/DL (0.55-1.30); POTASSIUM 3.9 MMOL/L (3.5-5.1)
[2020-01-25] MEDS: dilTIAZem HCl 90mg tab ORAL SCH ×4 (05:13→23:42)
--- NOTE | 2020-01-25 05:28 | NUR ---
NURSE NOTES: patient in bed awake,not following command. trach to vent fi02 40% satting 100%. HOB elevated. no s/s of acute distress noted. AFIB on cardiac sonographer HR 101. Left upper arm PICC line intact infusing Cardizem drip at 15ml/hr BP 155/82. GT intact infusing Glucerna 1.2 at 60cc/hr no residual. Lockett draining. On P200 mattress for wound management. Contact isolation maintained and observed. bilateral wrist restraint intact with episode of pulling out tubing. reality orientation provided.noted with generalized edema+2. dressing intact on right lower leg. bilateral arm and legs elevated with pillows. frequent visual checks continued. will continue plan of care.
[2020-01-25] MEDS: dilTIAZem Premix 125mg/125ml 125 ML IVPB SCH (07:11)
--- NOTE | 2020-01-25 07:15 | NUR ---
HAND-OFF: Report given to Jay COHEN.
--- NOTE | 2020-01-25 07:16 | NUR ---
NURSE NOTES: Received patient from Sarah COHEN. Patient is awake, alert and oriented x1, A. Fib on the heart monitor, HR 110-115. Receiving oxygen via Shiley 8, vent settings: AC 18, TV 600, FiO2 40%, PEEP 5. IV site is Left Upper arm PICC, patent and receiving Cardizem drip at 15mls/hr. G-tube is intact and receiving Glucerna 1.2 at 60cc/hr. Lockett catheter is intact and draining. Rectal tube is intact and draining. Bed is locked, placed in lowest position, side rails up x3, bed alarm on, head of bed elevated. Will continue to monitor.
[2020-01-25] MEDS: Acetylcysteine 20% Soln 4ml HHN SCH ×3 (07:45→19:24)
[2020-01-25] MEDS: Minocycline HCl 50mg cap ORAL SCH ×2 (08:07→20:15)
[2020-01-25] MEDS: Bacitracin Oint 15gm Tube TOPIC SCH ×2 (08:08→20:42)
[2020-01-25] MEDS: Enoxaparin 60mg Inj SUBQ SCH (08:08)
[2020-01-25] MEDS: Metoprolol Tartrate 50mg tab GT SCH ×2 (08:08→20:15)
[2020-01-25] MEDS: Pantoprazole Inj IVP SCH ×2 (08:08→20:14)
--- NOTE | 2020-01-25 08:23 | NUR ---
RADIOLOGY DEPT., CHEST X-RAY DONE.-P.DYE
--- NOTE | 2020-01-25 08:42 | NUR ---
NURSE NOTES: Patient is resting in bed, A. Fib on the heart monitor, HR 102-110. Medications given as prescribed, no adverse reaction noted. Patient is afebrile, rectal temperature 96.8 degrees . Oral care given to patient, and tracheal suctioning done, thick meléndez secretions removed.
--- NOTE | 2020-01-25 10:01 | General Progress Note ---
Subjective ROS Limited/Unobtainable: No Allergies: Coded Allergies: ERYTHROMYCIN BASE (Verified Allergy, Severe, 12/12/19) HALOPERIDOL (Verified Allergy, Unknown, 12/12/19) VANCOMYCIN (Unverified Adverse Reaction, Intermediate, Shortness of Breath, 12/12/19) Objective Last 24 Hour Vital Signs Date Time Temp Pulse Resp B/P (MAP) Pulse Ox O2 Delivery O2 Flow Rate FiO2 01/25/20 09:30 101 27 40 40 01/25/20 09:00 96 18 114/65 (81) 01/25/20 08:30 104 18 125/79 (94) 38 01/25/20 08:08 108 143/127 01/25/20 08:00 96.8 105 17 143/127 (132) 92 01/25/20 08:00 40 01/25/20 08:00 Mechanical Ventilator 01/25/20 07:59 108 22 97 Mechanical Ventilator 40 111 19 40 01/25/20 07:34 114 01/25/20 07:30 113 18 133/70 (91) 94 01/25/20 07:00 108 19 105/93 (97) 97 01/25/20 06:00 114 22 138/103 (115) 88 01/25/20 05:13 102 134/96 01/25/20 05:00 104 20 155/82 (106) 50 01/25/20 04:00 40 01/25/20 04:00 98.7 98 18 134/96 (109) 100 01/25/20 04:00 Mechanical Ventilator 01/25/20 04:00 102 01/25/20 03:00 94 19 141/72 (95) 100 01/25/20 02:19 102 20 40 01/25/20 02:00 105 26 120/57 (78) 97 01/25/20 01:57 103 25 139/79 (99) 98 01/25/20 01:00 101 23 135/79 (97) 96 01/25/20 00:00 100.0 98 26 116/63 (80) 95 01/25/20 00:00 40 01/25/20 00:00 90 01/25/20 00:00 Mechanical Ventilator 01/25/20 00:00 107 01/24/20 23:41 99.4 01/24/20 23:25 97 18 40 01/24/20 23:11 96 115/50 10/15/20 23:01 100.7 01/24/20 23:00 95 25 121/67 (85) 99 01/24/20 22:30 96 22 115/50 (71) 99 01/24/20 22:00 111 123/72 (89) 100 01/24/20 21:30 113 128/72 (90) 94 01/24/20 21:15 108 125/74 01/24/20 21:14 108 28 125/74 89 01/24/20 21:00 108 28 125/74 89 01/24/20 21:00 101 125/68 (87) 96 01/24/20 20:00 50 01/24/20 20:00 Mechanical Ventilator 01/24/20 20:00 100.4 108 125/74 (91) 89 01/24/20 19:35 110 28 40 01/24/20 19:30 109 124/60 (81) 92 01/24/20 19:15 102 99 01/24/20 19:00 100.5 106 130/67 (88) 94 01/24/20 18:50 100.5 01/24/20 18:21 121 118/63 01/24/20 18:00 115 27 118/63 (81) 93 01/24/20 18:00 100.8 01/24/20 17:00 120 25 154/71 (98) 94 01/24/20 16:00 109 01/24/20 16:00 Mechanical Ventilator 01/24/20 16:00 110 31 155/76 (102) 95 01/24/20 16:00 50 01/24/20 15:12 104 26 40 01/24/20 15:08 100.5 01/24/20 15:00 100.5 123 23 157/84 (108) 97 01/24/20 14:00 126 25 156/85 (108) 96 01/24/20 13:00 119 26 133/79 (97) 96 01/24/20 12:32 114 18 136/80 97 01/24/20 12:02 128 18 140/75 98 01/24/20 12:01 128 140/75 01/24/20 12:00 Mechanical Ventilator 01/24/20 12:00 100.7 126 23 140/75 (96) 98 01/24/20 12:00 117 01/24/20 12:00 50 01/24/20 11:36 125 24 50 01/24/20 11:00 124 22 128/115 (119) 98 Intake and Output 01/24/20 01/25/20 19:00 07:00 Intake Total 1397.5 ml 2180 ml Output Total 1750 ml 1910 ml Balance -352.5 ml 270 ml Free Water 600 ml IV Total 677.5 ml 680 ml Tube Feeding 720 ml 720 ml Other 180 ml Output Urine Total 1750 ml 1910 ml # Bowel Movements 2 4 Laboratory Tests 01/24/20 10:14: Arterial Blood pH 7.410, Arterial Blood Partial Pressure CO2 41.6, Arterial Blood Partial Pressure O2 99.2, Arterial Blood HCO3 25.8, Arterial Blood Oxygen Saturation 97.1, Arterial Blood Base Excess 1, Eugene Test Positive 01/25/20 03:37: White Blood Count 6.9, Red Blood Count 2.73L, Hemoglobin 7.8L, Hematocrit 24.4L, Mean Corpuscular Volume 89, Mean Corpuscular Hemoglobin 28.7, Mean Corpuscular Hemoglobin Concent 32.1, Red Cell Distribution Width 18.8H, Platelet Count 208, Mean Platelet Volume 6.8, Neutrophils (%) (Auto) , Lymphocytes (%) (Auto) , Monocytes (%) (Auto) , Eosinophils (%) (Auto) , Basophils (%) (Auto) , Sodium Level 141, Potassium Level 3.9, Chloride Level 105, Carbon Dioxide Level 28, Anion Gap 8, Blood Urea Nitrogen 47H, Creatinine 1.4H, Estimat Glomerular Filtration Rate 37.5, Glucose Level 128H, Calcium Level 8.8, Total Bilirubin 0.5, Aspartate Amino Transf (AST/SGOT) 13L, Alanine Aminotransferase (ALT/SGPT) 7L, Alkaline Phosphatase 74, Total Protein 6.1L, Albumin 1.5L, Globulin 4.6, Albumin/Globulin Ratio 0.3L Height (Feet): 5 Height (Inches): 6.00 Weight (Pounds): 343 General Appearance: no apparent distress EENT: PERRL/EOMI Neck: supple Cardiovascular: normal rate Respiratory/Chest: decreased breath sounds Abdomen: normal bowel sounds, non tender, soft Extremities: non-tender Assessment/Plan Problem List: (1) CKD (chronic kidney disease) stage 3, GFR 30-59 ml/min ICD Codes: N18.3 - Chronic kidney disease, stage 3 (moderate) SNOMED: 309902897 (2) COPD (chronic obstructive pulmonary disease) ICD Codes: J44.9 - Chronic obstructive pulmonary disease, unspecified SNOMED: 18281266 (3) Smoker ICD Codes: F17.200 - Nicotine dependence, unspecified, uncomplicated SNOMED: 31753085 (4) GERD (gastroesophageal reflux disease) ICD Codes: K21.9 - Gastro-esophageal reflux disease without esophagitis SNOMED: 138009076 (5) Atrial fibrillation with RVR ICD Codes: I48.91 - Unspecified atrial fibrillation SNOMED: 271164423019936 Status: stable Assessment/Plan: fu H&H monitor labs fu cardiology recs icu care ppi cbc in am s/p Trach and PEG GTF monitor for residuals Mervin Victoria MD Jan 25, 2020 10:01
--- NOTE | 2020-01-25 10:03 | NUR ---
RESPIRATORY NOTE: Placed pt on CPAP PS8 @ 0930. SPO2 98%, HR 101. Spont. VT 488 Spont RR 27 Spont VE 12.1 RSBI 53 NIF -29 VC 417 Placed Pt back on previous AC vent settings @ 1000 due to increased HR 135, and desaturation to 89%. SPO2 increased back to 96% shortly after. No S/S of distress noted. Jay RN at bedside. Will continue to monitor and follow plan of care.
--- NOTE | 2020-01-25 10:04 | NUR ---
NURSE NOTES: Titrating down patient from Cardizem drip currently at 7mls/hr, patient remains A. Fib on the heart monitor, HR is 100-108. Addendum: 01/25/20 at 1055 by Evaristo Vtiale RN NURSE NOTES: Titrating down patient from Cardizem drip currently at 7.5mg/hr, patient remains A. Fib on the heart monitor, HR is 100-108.
--- NOTE | 2020-01-25 10:08 | Pulmonolgy Critical Care Note ---
Luz Bowen MD PEDIATRIC ALLERGIST 01/25/20 1008: Critical Care - Asmt/Plan Assessment/Plan: ASSESSMENT acute hypoxemic hypercapnic resp failure, requiring intubation 12/22 failure to wean s/p trach 01/08 COVID 19 PNA ( last test x 2 NGT) sepsis fungemia empyema s/p L thoracotomy 01/17, s/p removal UTI with E coli ESBL UTI VRE possible aspiration PNA - s/p treatment Moderate R pleural effusion s/p tap COPD Atrial fibrillation with RVR CHF Acute renal failure on CKD Severe anemia dysphagia, s/p PEG 01/08 Thrombocytopenia Status post ground fall Tobacco dependency Morbid obesity probable GARY R knee edema and hematoma, possible cellulitis Hyper Na due to free water deficit PLAN OF CARE s/p trach, prior not tolerated weaning trials; developed tachycardia /A fib with RVR back on Cardizem gtt , weaning trial on hold s/p tap 01/15 -500 ml pleural fluid pleural fl cx 01/15 E coli ESBL, GPC and yeast , glucose low -> c/w empyema abx as per ID recs s/p L thoracotomy 01/17 was on daily CXR while CT in, initially CT to Hemovac drainage, then to water seal, eventually was dc 01/21 CXR 01/22 -> Interim left chest tube removal. No pneumothorax Slightly increased right pleural effusion acidosis resolved ; PEEP down to 5 ABG 01/23 stable, FiO2 down to 40% CT chest pending repeated COVID 19 01/14 and 01/17 NGT s/p steroids IV ( started 12/23) continue for total of 10 days till 01/02 s/p Remdesivir (started 12/24 ), dc 12/30 initial diagnoses with COVID 19 at [facility] 11/29, was not hypoxic and not intubated, was not treated with Remdesivivr , only received empiric abx for PNA DVT prophylaxis with Lovenox on diuresis with Lasix, monitor volumes closely creat remains stable consider d/c Diamox afib rate control - Cardizem gtt , attempt to wean GI prophylaxis with PPI s/p PEG 01/09, asp precautions, severely leukopenic ? due to meds vs ? primary BM disease -resolved monitor counts immunofixation screen unremarkable transfuse to keep Hgb > 7 , s/p transfusion 01/13 previously evaluated by bioethics -> DNR/DNI status appropriate consider transfer to LTAC for further management case discussed and evaluated by supervising physician Critical Care - Objective Last 24 Hour Vital Signs Date Time Temp Pulse Resp B/P (MAP) Pulse Ox O2 Delivery O2 Flow Rate FiO2 01/25/20 09:30 101 27 40 40 01/25/20 09:00 96 18 114/65 (81) 01/25/20 08:30 104 18 125/79 (94) 38 01/25/20 08:08 108 143/127 01/25/20 08:00 96.8 105 17 143/127 (132) 92 01/25/20 08:00 40 01/25/20 08:00 Mechanical Ventilator 01/25/20 07:59 108 22 97 Mechanical Ventilator 40 111 19 40 01/25/20 07:34 114 01/25/20 07:30 113 18 133/70 (91) 94 01/25/20 07:00 108 19 105/93 (97) 97 01/25/20 06:00 114 22 138/103 (115) 88 01/25/20 05:13 102 134/96 01/25/20 05:00 104 20 155/82 (106) 50 01/25/20 04:00 40 01/25/20 04:00 98.7 98 18 134/96 (109) 100 01/25/20 04:00 Mechanical Ventilator 01/25/20 04:00 102 01/25/20 03:00 94 19 141/72 (95) 100 01/25/20 02:19 102 20 40 01/25/20 02:00 105 26 120/57 (78) 97 01/25/20 01:57 103 25 139/79 (99) 98 01/25/20 01:00 101 23 135/79 (97) 96 01/25/20 00:00 100.0 98 26 116/63 (80) 95 01/25/20 00:00 40 01/25/20 00:00 90 01/25/20 00:00 Mechanical Ventilator 01/25/20 00:00 107 01/24/20 23:41 99.4 01/24/20 23:25 97 18 40 01/24/20 23:11 96 115/50 01/24/20 23:01 100.7 01/24/20 23:00 95 25 121/67 (85) 99 01/24/20 22:30 96 22 115/50 (71) 99 01/24/20 22:00 111 123/72 (89) 100 01/24/20 21:30 113 128/72 (90) 94 01/24/20 21:15 108 125/74 01/24/20 21:14 108 28 125/74 89 01/24/20 21:00 108 28 125/74 89 01/24/20 21:00 101 125/68 (87) 96 01/24/20 20:00 50 01/24/20 20:00 Mechanical Ventilator 01/24/20 20:00 100.4 108 125/74 (91) 89 01/24/20 19:35 110 28 40 01/24/20 19:30 109 124/60 (81) 92 01/24/20 19:15 102 99 01/24/20 19:00 100.5 106 130/67 (88) 94 01/24/20 18:50 100.5 01/24/20 18:21 121 118/63 01/24/20 18:00 115 27 118/63 (81) 93 01/24/20 18:00 100.8 01/24/20 17:00 120 25 154/71 (98) 94 01/24/20 16:00 109 01/24/20 16:00 Mechanical Ventilator 01/24/20 16:00 110 31 155/76 (102) 95 01/24/20 16:00 50 01/24/20 15:12 104 26 40 01/24/20 15:08 100.5 01/24/20 15:00 100.5 123 23 157/84 (108) 97 01/24/20 14:00 126 25 156/85 (108) 96 01/24/20 13:00 119 26 133/79 (97) 96 01/24/20 12:32 114 18 136/80 97 01/24/20 12:02 128 18 140/75 98 01/24/20 12:01 128 140/75 01/24/20 12:00 Mechanical Ventilator 01/24/20 12:00 100.7 126 23 140/75 (96) 98 01/24/20 12:00 117 01/24/20 12:00 50 01/24/20 11:36 125 24 50 01/24/20 11:00 124 22 128/115 (119) 98 Objective: CONDITION: critical General Appearance: morbidly obese , sedated, generalized anasarca ; on vent AC 600-18-40 % PEEP 5 Lines, tubes and drains: LUE PICC , intact HEENT: normocephalic, atraumatic, anicteric, Neck: trach with Shiley # 8, secretions small amount, yellow color, thick consistency Respiratory/Chest: few isolated rhonchi , tachypneic Cardiovascular/Chest: irregularly irregular - A fib , tachy , distant heart sounds, Abdomen: normal bowel sounds, non tender , obese, soft distended ; G tube with TF : [place] Extremities: no calf tenderness, moderate edema - +3 BLE, R knee with large hematoma, edema, Skin Exam: warm/dry, multiple tattoos Neurologic: sedated Musculoskeletal: normal muscle bulk Accucheck: 136 Critical Care - Subjective ROS Limited/Unobtainable: Yes Interval Events: stable on PEEP 5, ABG this am, stable, FiO2 down to 40% after ABG fevers overnight, currently afebrile Cardizem gtt is being titrated down Condition: critical IV Access: PICC - LUE intact EKG Rhythm: Atrial Fibrillation - with RVR FI02: 40 Vent Support Breath Rate: 18 Vent Support Mode: CPAP Vent Tidal Volume: 600 Sputum Amount: Small PEEP: 5.0 PIP: 14 Drips: Cardizem gtt 7.5 mg/hr Tube Feeding Amount: 60 I&O: Intake and Output 01/24/20 01/25/20 19:00 07:00 Intake Total 1397.5 ml 2180 ml Output Total 1750 ml 1910 ml Balance -352.5 ml 270 ml Free Water 600 ml IV Total 677.5 ml 680 ml Tube Feeding 720 ml 720 ml Other 180 ml Output Urine Total 1750 ml 1910 ml # Bowel Movements 2 4 CXR: CXR 01/23 Bilateral interstitial congestion and right pleural effusion are unchanged. The heart remains enlarged. 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 Time Spent (Minutes): 40 - cc Luz Bowen NP Jan 25, 2020 10:08 Colt Keen MD Jan 25, 2020 22:06
[2020-01-25] MEDS: Multivitamins W/Minerals 15 ML UDC GT SCH (11:04)
--- NOTE | 2020-01-25 11:41 | Nephrology Progress Note ---
Assessment/Plan Status: stable Assessment/Plan: A/P 1)CKD 3B - Cr 1.4 - avoid nephrotoxins. 2) Atrial fibrillation RVR. On cardizem gtt - Congestive heart failure. - mgmt per cardiology 3) Resp FL- trached, COVID + - mgmt per ID 4) Sepsis- Abx mgmt per ID Subjective Date patient seen: Jan 25, 2020 ROS Limited/Unobtainable: Yes Allergies: Coded Allergies: ERYTHROMYCIN BASE (Verified Allergy, Severe, 12/12/19) HALOPERIDOL (Verified Allergy, Unknown, 12/12/19) VANCOMYCIN (Unverified Adverse Reaction, Intermediate, Shortness of Breath, 12/12/19) Subjective Patient trached on the vent in COVID isolation Objective Last 24 Hour Vital Signs Date Time Temp Pulse Resp B/P (MAP) Pulse Ox O2 Delivery O2 Flow Rate FiO2 01/25/20 11:28 112 22 40 01/25/20 11:05 112 135/85 01/25/20 11:00 121 24 135/85 (102) 96 01/25/20 10:02 98 01/25/20 10:00 123 21 126/74 (91) 96 01/25/20 09:30 101 19 103/71 (82) 98 01/25/20 09:30 101 27 40 40 01/25/20 09:00 96 18 114/65 (81) 100 01/25/20 08:30 104 18 125/79 (94) 93 01/25/20 08:08 108 143/127 01/25/20 08:00 96.8 105 17 143/127 (132) 92 01/25/20 08:00 40 01/25/20 08:00 Mechanical Ventilator 01/25/20 07:59 108 22 97 Mechanical Ventilator 40 111 19 40 01/25/20 07:34 114 01/25/20 07:30 113 18 133/70 (91) 94 01/25/20 07:00 108 19 105/93 (97) 97 01/25/20 06:00 114 22 138/103 (115) 88 01/25/20 05:13 102 134/96 01/25/20 05:00 104 20 155/82 (106) 50 01/25/20 04:00 40 01/25/20 04:00 98.7 98 18 134/96 (109) 100 01/25/20 04:00 Mechanical Ventilator 01/25/20 04:00 102 01/25/20 03:00 94 19 141/72 (95) 100 01/25/20 02:19 102 20 40 01/25/20 02:00 105 26 120/57 (78) 97 01/25/20 01:57 103 25 139/79 (99) 98 01/25/20 01:00 101 23 135/79 (97) 96 01/25/20 00:00 100.0 98 26 116/63 (80) 95 01/25/20 00:00 40 01/25/20 00:00 90 01/25/20 00:00 Mechanical Ventilator 01/25/20 00:00 107 01/24/20 23:41 99.4 01/24/20 23:25 97 18 40 01/24/20 23:11 96 115/50 01/24/20 23:01 100.7 01/24/20 23:00 95 25 121/67 (85) 99 01/24/20 22:30 96 22 115/50 (71) 99 01/24/20 22:00 111 123/72 (89) 100 01/24/20 21:30 113 128/72 (90) 94 01/24/20 21:15 108 125/74 01/24/20 21:14 108 28 125/74 89 01/24/20 21:00 108 28 125/74 89 01/24/20 21:00 101 125/68 (87) 96 01/24/20 20:00 50 01/24/20 20:00 Mechanical Ventilator 01/24/20 20:00 100.4 108 125/74 (91) 89 01/24/20 19:35 110 28 40 01/24/20 19:30 109 124/60 (81) 92 01/24/20 19:15 102 99 01/24/20 19:00 100.5 106 130/67 (88) 94 01/24/20 18:50 100.5 01/24/20 18:21 121 118/63 01/24/20 18:00 115 27 118/63 (81) 93 01/24/20 18:00 100.8 01/24/20 17:00 120 25 154/71 (98) 94 01/24/20 16:00 109 01/24/20 16:00 Mechanical Ventilator 01/24/20 16:00 110 31 155/76 (102) 95 01/24/20 16:00 50 01/24/20 15:12 104 26 40 01/24/20 15:08 100.5 01/24/20 15:00 100.5 123 23 157/84 (108) 97 01/24/20 14:00 126 25 156/85 (108) 96 01/24/20 13:00 119 26 133/79 (97) 96 01/24/20 12:32 114 18 136/80 97 01/24/20 12:02 128 18 140/75 98 01/24/20 12:01 128 140/75 01/24/20 12:00 Mechanical Ventilator 01/24/20 12:00 100.7 126 23 140/75 (96) 98 01/24/20 12:00 117 01/24/20 12:00 50 Intake and Output 01/24/20 01/25/20 19:00 07:00 Intake Total 1397.5 ml 2180 ml Output Total 1750 ml 1910 ml Balance -352.5 ml 270 ml Free Water 600 ml IV Total 677.5 ml 680 ml Tube Feeding 720 ml 720 ml Other 180 ml Output Urine Total 1750 ml 1910 ml # Bowel Movements 2 4 Laboratory Tests 01/25/20 03:37: White Blood Count 6.9, Red Blood Count 2.73L, Hemoglobin 7.8L, Hematocrit 24.4L, Mean Corpuscular Volume 89, Mean Corpuscular Hemoglobin 28.7, Mean Corpuscular Hemoglobin Concent 32.1, Red Cell Distribution Width 18.8H, Platelet Count 208, Mean Platelet Volume 6.8, Neutrophils (%) (Auto) , Lymphocytes (%) (Auto) , Monocytes (%) (Auto) , Eosinophils (%) (Auto) , Basophils (%) (Auto) , Sodium Level 141, Potassium Level 3.9, Chloride Level 105, Carbon Dioxide Level 28, Anion Gap 8, Blood Urea Nitrogen 47H, Creatinine 1.4H, Estimat Glomerular Filtration Rate 37.5, Glucose Level 128H, Calcium Level 8.8, Total Bilirubin 0.5, Aspartate Amino Transf (AST/SGOT) 13L, Alanine Aminotransferase (ALT/SGPT) 7L, Alkaline Phosphatase 74, Total Protein 6.1L, Albumin 1.5L, Globulin 4.6, Albumin/Globulin Ratio 0.3L Height (Feet): 5 Height (Inches): 6.00 Weight (Pounds): 343 Objective In COVID isolation Poli Grant MD Jan 25, 2020 11:41
--- NOTE | 2020-01-25 12:50 | NUR ---
DISCHARGE PLANNING S/W [facility] AT [facility] [phone]. INFORMED [facility] OF RECOMMENDATION FOR LTACH AND HE AGREES AND WILL REQUEST APPROVAL UPON ACCEPTANCE TO LTACH. PER [facility], INPATIENT STAY IS CURRENTLY APPROVED UP TO TODAY AND AUTH WILL CONTINUE TO BE MODIFIED WITH RECEIPT OF CLINICALS.
--- NOTE | 2020-01-25 13:43 | NUR ---
NURSE NOTES: Patient is tolerating feeding well, less than 3cc of residual. Flushed G-tube with 200cc of water.
--- NOTE | 2020-01-25 13:55 | Surgery Progress Note ---
Surgery Progress Note Subjective Procedure Performed left tube thoracotomy Additional Comments on support labs noted trying to wean leg stable Objective Last 24 Hour Vital Signs Date Time Temp Pulse Resp B/P (MAP) Pulse Ox O2 Delivery O2 Flow Rate FiO2 01/25/20 13:30 98 19 114/72 (86) 100 01/25/20 13:00 96 20 103/66 (78) 100 01/25/20 12:30 99 19 118/85 (96) 100 01/25/20 12:00 97.5 106 21 119/78 (92) 100 01/25/20 12:00 40 01/25/20 12:00 Mechanical Ventilator 01/25/20 11:49 110 01/25/20 11:30 115 23 124/77 (93) 96 01/25/20 11:28 112 22 40 01/25/20 11:05 112 135/85 01/25/20 11:00 121 24 135/85 (102) 96 01/25/20 10:30 113 20 117/74 (88) 96 01/25/20 10:02 98 01/25/20 10:00 123 21 126/74 (91) 96 01/25/20 09:30 101 19 103/71 (82) 98 01/25/20 09:30 101 27 40 40 01/25/20 09:00 96 18 114/65 (81) 100 01/25/20 08:30 104 18 125/79 (94) 93 01/25/20 08:08 108 143/127 01/25/20 08:00 96.8 105 17 143/127 (132) 92 01/25/20 08:00 40 01/25/20 08:00 Mechanical Ventilator 01/25/20 07:59 108 22 97 Mechanical Ventilator 40 111 19 40 01/25/20 07:34 114 01/25/20 07:30 113 18 133/70 (91) 94 01/25/20 07:00 108 19 105/93 (97) 97 01/25/20 06:00 114 22 138/103 (115) 88 01/25/20 05:13 102 134/96 01/25/20 05:00 104 20 155/82 (106) 50 01/25/20 04:00 40 01/25/20 04:00 98.7 98 18 134/96 (109) 100 01/25/20 04:00 Mechanical Ventilator 01/25/20 04:00 102 01/25/20 03:00 94 19 141/72 (95) 100 01/25/20 02:19 102 20 40 01/25/20 02:00 105 26 120/57 (78) 97 01/25/20 01:57 103 25 139/79 (99) 98 01/25/20 01:00 101 23 135/79 (97) 96 01/25/20 00:00 100.0 98 26 116/63 (80) 95 01/25/20 00:00 40 01/25/20 00:00 90 01/25/20 00:00 Mechanical Ventilator 01/25/20 00:00 107 01/24/20 23:41 99.4 01/24/20 23:25 97 18 40 01/24/20 23:11 96 115/50 01/24/20 23:01 100.7 01/24/20 23:00 95 25 121/67 (85) 99 01/24/20 22:30 96 22 115/50 (71) 99 01/24/20 22:00 111 123/72 (89) 100 01/24/20 21:30 113 128/72 (90) 94 01/24/20 21:15 108 125/74 01/24/20 21:14 108 28 125/74 89 01/24/20 21:00 108 28 125/74 89 01/24/20 21:00 101 125/68 (87) 96 01/24/20 20:00 50 01/24/20 20:00 Mechanical Ventilator 01/24/20 20:00 100.4 108 125/74 (91) 89 01/24/20 19:35 110 28 40 01/24/20 19:30 109 124/60 (81) 92 01/24/20 19:15 102 99 01/24/20 19:00 100.5 106 130/67 (88) 94 01/24/20 18:50 100.5 01/24/20 18:21 121 118/63 01/24/20 18:00 115 27 118/63 (81) 93 01/24/20 18:00 100.8 01/24/20 17:00 120 25 154/71 (98) 94 01/24/20 16:00 109 01/24/20 16:00 Mechanical Ventilator 01/24/20 16:00 110 31 155/76 (102) 95 01/24/20 16:00 50 01/24/20 15:12 104 26 40 01/24/20 15:08 100.5 01/24/20 15:00 100.5 123 23 157/84 (108) 97 01/24/20 14:00 126 25 156/85 (108) 96 I&O Intake and Output0 01/24/20 01/25/20 19:00 07:00 Intake Total 1397.5 ml 2180 ml Output Total 1750 ml 1910 ml Balance -352.5 ml 270 ml Free Water 600 ml IV Total 677.5 ml 680 ml Tube Feeding 720 ml 720 ml Other 180 ml Output Urine Total 1750 ml 1910 ml # Bowel Movements 2 4 Dressing: saturated Cardiovascular: RSR Respiratory: decreased breath sounds Abdomen: soft, non-tender, present bowel sounds Extremities: edema, cyanosis Laboratory Tests Test 01/25/20 03:37 White Blood Count 6.9 K/UL (4.8-10.8) Red Blood Count 2.73 M/UL (4.20-5.40) L Hemoglobin 7.8 G/DL (12.0-16.0) L Hematocrit 24.4 % (37.0-47.0) L Mean Corpuscular Volume 89 FL (80-99) Mean Corpuscular Hemoglobin 28.7 PG (27.0-31.0) Mean Corpuscular Hemoglobin Concent 32.1 G/DL (32.0-36.0) Red Cell Distribution Width 18.8 % (11.6-14.8) H Platelet Count 208 K/UL (150-450) Mean Platelet Volume 6.8 FL (6.5-10.1) Neutrophils (%) (Auto) % (45.0-75.0) Lymphocytes (%) (Auto) % (20.0-45.0) Monocytes (%) (Auto) % (1.0-10.0) Eosinophils (%) (Auto) % (0.0-3.0) Basophils (%) (Auto) % (0.0-2.0) Sodium Level 141 MMOL/L (136-145) Potassium Level 3.9 MMOL/L (3.5-5.1) Chloride Level 105 MMOL/L (98-107) Carbon Dioxide Level 28 MMOL/L (21-32) Anion Gap 8 mmol/L (5-15) Blood Urea Nitrogen 47 mg/dL (7-18) H Creatinine 1.4 MG/DL (0.55-1.30) H Estimat Glomerular Filtration Rate 37.5 mL/min (>60) Glucose Level 128 MG/DL (74-106) H Calcium Level 8.8 MG/DL (8.5-10.1) Total Bilirubin 0.5 MG/DL (0.2-1.0) Aspartate Amino Transf (AST/SGOT) 13 U/L (15-37) L Alanine Aminotransferase (ALT/SGPT) 7 U/L (12-78) L Alkaline Phosphatase 74 U/L (46-116) Total Protein 6.1 G/DL (6.4-8.2) L Albumin 1.5 G/DL (3.4-5.0) L Globulin 4.6 g/dL Albumin/Globulin Ratio 0.3 (1.0-2.7) L Plan Problems: (1) Urinary tract infection (2) CHF exacerbation (3) History of schizophrenia (4) Atrial fibrillation with RVR (5) Schizophrenia (6) GERD (gastroesophageal reflux disease) (7) Smoker (8) Atrial fibrillation with rapid ventricular response (9) Lymphadema (10) COPD (chronic obstructive pulmonary disease) (11) CKD (chronic kidney disease) stage 3, GFR 30-59 ml/min (12) NATALIE (acute kidney injury) (13) Dehydration (14) Dysphagia (15) UTI (urinary tract infection) (16) UGI bleed (17) ESBL (extended spectrum beta-lactamase) producing bacteria infection (18) Constipation (19) Lactic acidosis (20) Tinea cruris (21) Onychomycosis (22) Emesis (23) Essential hypertension (24) Anemia (25) Cough (26) Depression (27) Depression (28) Edema (29) Rash (30) Opiate dependence (31) Opiate dependence (32) Opiate dependence (33) Opiate dependence (34) Pyelonephritis (35) Sepsis (36) UTI (urinary tract infection) (37) Nausea and vomiting (38) Abdominal pain Assessment & Plan: [age]-year-old female obese white abdominal pain deep tissue injury identified limited mobility on HD. KUB noted tube in place continue meds feeds Does not seem obstructed We will monitor lines noted. plan change resume tube feeds labs okay FINDINGS: Lower thorax: Obscuration of the left costophrenic angle suggestive of pleural effusion. Intraperitoneal space: No free air. Gastrointestinal tract: Unremarkable. No dilation. Bones/joints: Unremarkable. Tubes, lines and devices: The nasogastric tube has the tip at the mid inferior aspect of the gastric body. Other findings: Nonspecific gas pattern. Single frontal view of the abdomen demonstrates tip of the enteric tube and distal side-port projecting over the stomach. Gas is identified within the nondistended large bowel. There is a paucity of small bowel gas seen. Partially visualized left pleural effusion. No other significant interval change. (39) Chest pain (40) Chest pain (41) Nausea (42) Obesity (43) Chronic ulcer of leg (44) Chronic ulcer of leg (45) Chronic ulcer of leg (46) ACS (acute coronary syndrome) (47) Acute chest pain (48) Encounter for dressing change or suture removal (49) Left leg cellulitis (50) Acute encephalopathy (51) Encounter for wound re-check (52) Intractable nausea and vomiting (53) Infection due to ESBL-producing Escherichia coli (54) Chronic venous stasis (55) Change of dressing (56) Change of dressing (57) Change of dressing (58) Change of dressing (59) Change of dressing (60) Change of dressing (61) Change of dressing (62) Change of dressing (63) ESBL urine (64) Lymphadema (65) Lymphedema (66) Lymphedema (67) Lymphedema (68) Lymphedema (69) Lymphedema (70) Lymphedema (71) Lymphedema (72) Lymphedema (73) Open wound of foot (74) Open wound of foot (75) cellulitis (76) chronic lymphedema (77) chronic lymphedema (78) chronic lymphedema (79) hypertension uncontrolled (80) hypertension uncontrolled (81) Intertrigo (82) Sciatica (83) Cellulitis (84) Schizophrenia (85) Chronic bronchitis (86) HTN (hypertension) (87) Venous stasis ulcers (88) Medication refill (89) Chest pain, atypical (90) BMI 45.0-49.9, adult (91) Lymphedema of both lower extremities (92) hypertension uncontrolled (93) hypertension uncontrolled (94) hypertension uncontrolled (95) tenia corpus (96) Deep tissue injury Assessment & Plan: Morbidly obese pt whom presented on admission with Pressure injuries, Edemae bilat lower extremities eschar to dorsal aspects of metatarsals. Pt is very demanding of staff and can be resistive to repositioning. DTPI noted to L Sacrum(L)5.5cm x (W)2.5cm. Base of Pressure Injury is Maroon and indurated with surrounding non-blanchable erythema DTPI R Sacrum(L)5.5cm x (W)2.3cm. Base of Pressure Injury is maroon with purpuric center that is fluctuant. Pt complained of tenderness when minimally palpated. Bilat lower extremities are edematous . Dry eschar noted to nail matrix and tip of L 1st metatarsal, Dorsal L 2nd metatarsal, R 2nd and R 4th metatarsals. Both heels are boggy with non-Blanchable erythema. blisters forming on Right lower extremity anterior tibia. not infected cellulitis / edema on b/l le stable cont abx Tx.Plan: Apply Moisture Barrier Paste to Sacrum R and L gluteal cheeks. Cover with Optifoam drsgs. Change every 3 days and prn. Apply Betadine to dry eschar metatarsals both feet Daily. Apply Cavilon Skin Barrier to both heels. Cover each heel with Optifoam drsgs. Change every 7days and prn. Reposition at least every 2hours or as tolerated. Off-load heels with pillow. right leg hematoma stable critically ill and edema on right leg has compromised dermis over the hematoma. will likely need debridement once improved (97) COVID-19 Assessment & Plan: ++ on vent weaning abx as per ID (98) Respiratory failure Assessment & Plan: not able to wean safely will plan for trach case discussed with medical team, pulm, icu. recommended to trach given medical condition. medically indicated and recommended. s/p trach 01/08 s/p trach more comfortable less agitated on vent weaning here is complete or near complete opacification of left hemithorax. There is increasing pleural fluid on the right. Interstitial and airspace disease on the right is unchanged. Tracheostomy is again demonstrated Impression: Complete or near complete opacification left hemithorax. This may indicate rapidly accumulating pleural effusion, versus atelectatic left lung. chest tube 01/17 left chest tube to water seal am cxr (99) Pneumonia Juan Manuel Buckner Jan 25, 2020 13:55
--- NOTE | 2020-01-25 14:17 | NUR ---
NURSE NOTES: Spoke to Dr. Meek on the phone, placed order to discontinue Cardizem Drip.
[2020-01-25] MEDS ORDERED: Digoxin 0.5mg/2ml Inj IVP SCH ×3 (14:30→20:00)
--- NOTE | 2020-01-25 14:35 | Cardiology Progress Note ---
Subjective DATE OF SERVICE: Jan 25, 2020 Remains in ICU in critical condition with guarded prognosis. Now s/p left thoracotomy/chest tube- since removed. Remains on vent support - s/p trach. BP range remaining low normal range. Remains COVID19 positive. Monitor: AFIb with poor rate control; now placed back on IV cardizem with BBlocker per GTube. Venous Duplex: negative for DVT Renal fxn and free water deficit improved significantly Lactic acid level has normalized. Objective Last 24 Hour Vital Signs Date Time Temp Pulse Resp B/P (MAP) Pulse Ox O2 Delivery O2 Flow Rate FiO2 01/25/20 14:00 105 27 112/66 (81) 100 01/25/20 13:37 104 26 100 Mechanical Ventilator 40 103 24 40 01/25/20 13:30 98 19 114/72 (86) 100 01/25/20 13:00 96 20 103/66 (78) 100 01/25/20 12:30 99 19 118/85 (96) 100 01/25/20 12:00 97.5 106 21 119/78 (92) 100 01/25/20 12:00 40 01/25/20 12:00 Mechanical Ventilator 01/25/20 11:49 110 01/25/20 11:30 115 23 124/77 (93) 96 01/25/20 11:28 112 22 40 01/25/20 11:05 112 135/85 01/25/20 11:00 121 24 135/85 (102) 96 01/25/20 10:30 113 20 117/74 (88) 96 01/25/20 10:02 98 01/25/20 10:00 123 21 126/74 (91) 96 01/25/20 09:30 101 19 103/71 (82) 98 01/25/20 09:30 101 27 40 40 01/25/20 09:00 96 18 114/65 (81) 100 01/25/20 08:30 104 18 125/79 (94) 93 01/25/20 08:08 108 143/127 01/25/20 08:00 96.8 105 17 143/127 (132) 92 01/25/20 08:00 40 01/25/20 08:00 Mechanical Ventilator 01/25/20 07:59 108 22 97 Mechanical Ventilator 40 111 19 40 01/25/20 07:34 114 01/25/20 07:30 113 18 133/70 (91) 94 01/25/20 07:00 108 19 105/93 (97) 97 01/25/20 06:00 114 22 138/103 (115) 88 01/25/20 05:13 102 134/96 01/25/20 05:00 104 20 155/82 (106) 50 01/25/20 04:00 40 01/25/20 04:00 98.7 98 18 134/96 (109) 100 01/25/20 04:00 Mechanical Ventilator 01/25/20 04:00 102 01/25/20 03:00 94 19 141/72 (95) 100 01/25/20 02:19 102 20 40 01/25/20 02:00 105 26 120/57 (78) 97 01/25/20 01:57 103 25 139/79 (99) 98 01/25/20 01:00 101 23 135/79 (97) 96 01/25/20 00:00 100.0 98 26 116/63 (80) 95 01/25/20 00:00 40 01/25/20 00:00 90 01/25/20 00:00 Mechanical Ventilator 01/25/20 00:00 107 01/24/20 23:41 99.4 01/24/20 23:25 97 18 40 01/24/20 23:11 96 115/50 01/24/20 23:01 100.7 01/24/20 23:00 95 25 121/67 (85) 99 01/24/20 22:30 96 22 115/50 (71) 99 01/24/20 22:00 111 123/72 (89) 100 01/24/20 21:30 113 128/72 (90) 94 01/24/20 21:15 108 125/74 01/24/20 21:14 108 28 125/74 89 01/24/20 21:00 108 28 125/74 89 01/24/20 21:00 101 125/68 (87) 96 01/24/20 20:00 50 01/24/20 20:00 Mechanical Ventilator 01/24/20 20:00 100.4 108 125/74 (91) 89 01/24/20 19:35 110 28 40 01/24/20 19:30 109 124/60 (81) 92 01/24/20 19:15 102 99 01/24/20 19:00 100.5 106 130/67 (88) 94 01/24/20 18:50 100.5 01/24/20 18:21 121 118/63 01/24/20 18:00 115 27 118/63 (81) 93 01/24/20 18:00 100.8 01/24/20 17:00 120 25 154/71 (98) 94 01/24/20 16:00 109 01/24/20 16:00 Mechanical Ventilator 01/24/20 16:00 110 31 155/76 (102) 95 01/24/20 16:00 50 01/24/20 15:12 104 26 40 01/24/20 15:08 100.5 01/24/20 15:00 100.5 123 23 157/84 (108) 97 ROS: unchanged from 12/12/19 HEENT: Orally intubated, Mechanically Ventilated, Thin secretions ET Tube, other - NGtube RHYTHM: NSR, ST LUNGS: diminished breath sounds, right-sided rhonchi CARDIAC: normal S1 and S2, irregularly irregular ABDOMEN: other - obese EXTREMITIES: moderate edema - mostly non pitting, other - hematoma right leg Laboratory Tests Test 01/25/20 03:37 White Blood Count 6.9 K/UL (4.8-10.8) Red Blood Count 2.73 M/UL (4.20-5.40) L Hemoglobin 7.8 G/DL (12.0-16.0) L Hematocrit 24.4 % (37.0-47.0) L Mean Corpuscular Volume 89 FL (80-99) Mean Corpuscular Hemoglobin 28.7 PG (27.0-31.0) Mean Corpuscular Hemoglobin Concent 32.1 G/DL (32.0-36.0) Red Cell Distribution Width 18.8 % (11.6-14.8) H Platelet Count 208 K/UL (150-450) Mean Platelet Volume 6.8 FL (6.5-10.1) Neutrophils (%) (Auto) % (45.0-75.0) Lymphocytes (%) (Auto) % (20.0-45.0) Monocytes (%) (Auto) % (1.0-10.0) Eosinophils (%) (Auto) % (0.0-3.0) Basophils (%) (Auto) % (0.0-2.0) Sodium Level 141 MMOL/L (136-145) Potassium Level 3.9 MMOL/L (3.5-5.1) Chloride Level 105 MMOL/L (98-107) Carbon Dioxide Level 28 MMOL/L (21-32) Anion Gap 8 mmol/L (5-15) Blood Urea Nitrogen 47 mg/dL (7-18) H Creatinine 1.4 MG/DL (0.55-1.30) H Estimat Glomerular Filtration Rate 37.5 mL/min (>60) Glucose Level 128 MG/DL (74-106) H Calcium Level 8.8 MG/DL (8.5-10.1) Total Bilirubin 0.5 MG/DL (0.2-1.0) Aspartate Amino Transf (AST/SGOT) 13 U/L (15-37) L Alanine Aminotransferase (ALT/SGPT) 7 U/L (12-78) L Alkaline Phosphatase 74 U/L (46-116) Total Protein 6.1 G/DL (6.4-8.2) L Albumin 1.5 G/DL (3.4-5.0) L Globulin 4.6 g/dL Albumin/Globulin Ratio 0.3 (1.0-2.7) L Assessment/Plan Assessment/Plan CRITICAL AND GUARDED Left lung opacification - s/p chest tube placement 01/18/20. Acute respiratory failure - s/p trach Acute on chronic respiratory acidosis AFiB with labile heart rates, and now persistent RVR. CHF, ac/chr diastolic BLE edema Sepsis with shock obesity COPD with bronchospasm Acute renal failure - worsening Pleural effusion GI bleeding Anemia - multifactorial, now worse Covid 19 PNA Hyperkalemia Recurring lactic acidosis Dehydration/hypernatremia Hypertension/HHD with labile BP - now stable range. Vent support Chest tube management Titrate beta yves. Replace IV diltiazem with oral diltiazem and digitalize now that renal fxn better. Hold diuretic dosing for 24hrs and reassess. Consider PRBC transfusion for hb below 7gm/dl Monitor acid/base parameters. Antimicrobials Lovenox added for cardioembolic prophyl - change to [facility]. Continued solution specialist Agree with DNR Jerome Meek MD Jan 25, 2020 14:35
--- NOTE | 2020-01-25 15:03 | NUR ---
CASE MANAGEMENT:REVIEW SI;RESPIRATORY FAILURE. FUNGEMIA. UTI. 100.7 123 27 135/85 93% TRACH/VENT FIO2 @ 40% H/H 7.8/24.4 BUN 47 CR 1.4 ALB 1.5 IS;DIGOXIN IV ONCE LINEZOLID IV Q12 IMODIUM NG Q6 CARDIZEM NG Q6 LASIX IV Q6 MINOCYCLINE NG Q12 ICU STATUS DCP;REPORTED HOMELESSNESS PLAN; [place]UREN EVAL REFER TO [facility] [place] [facility] DC CARDIZEM GTT
--- NOTE | 2020-01-25 15:39 | Diagnostic Imaging Report ---
Indication: Shortness of breath Technique: One view of the chest Comparison: 01/24/2020 Findings: Right pleural effusion and bilateral interstitial and airspace parenchymal disease is unchanged. Tracheostomy remains Impression: Unchanged, over one day, findings as above.
--- NOTE | 2020-01-25 15:52 | NUR ---
NURSE NOTES: Bed bath given to patient, turned and repositioned. Patient tolerated well, able to give little assistance in turning.
--- NOTE | 2020-01-25 19:11 | NUR ---
NURSE HAND-OFF REPORT: Latest Vital Signs: Temperature 97.2 , Pulse 118 , B/P 116 /74 , Respiratory Rate 26 , O2 SAT 99 , Mechanical Ventilator, O2 Flow Rate . Vital Sign Comment: EKG Rhythm: Atrial Fibrillation Rhythm change?: N Notified?: N Response: Latest Abreu Fall Score: 75 Fall Risk: High Risk Safety Measures: Call light Within Reach, Bed Alarm Zone 1, Side Rails Side Rails x3, Bed position Low and Locked. Fall Precautions: Yellow Socks Yellow Gown Door Sign Patient Fall Education Report given to Sarah COHEN.
[2020-01-25] MEDS: Ipratropium 0.02% Inh Soln 2.5ml UD HHN PRN (19:24)
--- NOTE | 2020-01-25 19:30 | NUR ---
NURSE NOTES: Received report from Jay COHEN.
--- NOTE | 2020-01-25 20:00 | NUR ---
NURSE NOTES: Patient in bed awake,alert no moaning no facial grimaces noted. . trach to vent fi02 40% satting 100%. HOB elevated. no s/s of acute distress noted. 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 Left upper arm PICC line intact . GT intact infusing Glucerna 1.2 at 60cc/hr no residual. Lockett draining. On P200 mattress for wound management. Contact isolation maintained and observed. bilateral wrist restraint intact with episode of pulling out tubing. reality orientation provided.noted with generalized edema+2. dressing intact on right lower leg. bilateral arm and legs elevated with pillows. frequent visual checks continued. will continue plan of care
[2020-01-25] MEDS: Dyna-Hex 2% Top Sol 2oz TOPIC SCH (20:14)
[2020-01-25] MEDS: Ascorbic Acid 500mg tab GT SCH (20:15)
[2020-01-25] MEDS: LORazepam 0.5mg tab GT PRN (20:15)
--- NOTE | 2020-01-25 20:29 | NUR ---
NURSE NOTES: Lanoxin 0.25mg IVP given HR 125 Afib. patient awake no s/s of acute distress noted. will rechecked patient.
[2020-01-25] MEDS: Epoetin Alfa-EPBX (NON ESRD)10,000 unit/ml vial SUBQ SCH (20:48)
--- NOTE | 2020-01-25 20:58 | NUR ---
NURSE NOTES: Patient HR 98
--- NOTE | 2020-01-25 23:00 | NUR ---
NURSE NOTES: Patient in bed no s/s of acute distress noted. Code status DNR, cooling measure continued. frequent visual checks continued. will continue plan of care.
--- NOTE | 2020-01-25 23:37 | Psych Consult Progress Note ---
Psychiatry Progress Note Psychiatry Progress Note Subjective the pt is still pancytopenic the pt is not agitated the pt is less lethargic Medications Current Medications Medications (Trade) Dose Ordered Sig/Shiraz Route PRN Reason Start Time Stop Time Status Last Admin Dose Admin Acetaminophen (Tylenol) 650 mg Q4H PRN GT Mild Pain (Pain Scale 1-3) 01/12/20 10:00 02/11/20 09:59 01/21/20 11:38 Acetaminophen (Tylenol) 650 mg Q4H PRN GT Temp >100.5 01/12/20 10:00 02/11/20 09:59 01/24/20 23:11 Acetylcysteine (Mucomyst) 200 mg Q6HRT HHN 01/19/20 13:30 04/18/20 13:29 01/25/20 19:24 Albuterol Sulfate (Proventil MDI) 2 puff Q4H PRN INH Shortness of Breath 12/24/19 10:30 03/23/20 10:29 01/12/20 09:44 Ascorbic Acid (Vitamin C) 500 mg BEDTIME GT 01/17/20 21:00 02/16/20 20:59 01/25/20 20:15 Bacitracin (Bacitracin 15gm tube) 1 applic EVERY 12 HOURS TOPIC 01/16/20 11:00 04/15/20 10:59 01/25/20 20:42 Chlorhexidine Gluconate (Jessie-Hex 2%) 1 applic DAILY@1999 TOPIC 12/24/19 20:00 03/23/20 19:59 01/25/20 20:14 Clotrimazole (Lotrimin) 1 applic EVERY 12 HOURS TOPIC 01/05/20 09:00 03/12/20 08:59 01/25/20 20:42 Digoxin (Lanoxin) 0.125 mg DAILY GT 01/26/20 09:00 04/25/20 08:59 Digoxin (Lanoxin) 0.25 mg ONCE ORAL 01/26/20 02:00 01/26/20 04:00 Diltiazem HCl (Cardizem Tab) 90 mg EVERY 6 HOURS ORAL 01/23/20 18:45 02/22/20 18:44 01/25/20 18:05 Enoxaparin Sodium (Lovenox) 60 mg DAILY SUBQ 01/13/20 12:00 04/12/20 11:59 01/24/20 08:40 Epoetin Cristiano (Epoetin Cristiano-EPBX(NON ESRD)) 10,000 unit SUBQ 01/23/20 21:00 04/22/20 20:59 01/25/20 20:48 Furosemide (Lasix) 100 mg Q6HR IV 01/23/20 12:00 02/22/20 11:59 01/25/20 18:05 Ipratropium [place] (Atrovent) 500 mcg Q6HRT PRN HHN Shortness of Breath 01/24/20 19:45 01/29/20 19:44 01/25/20 19:24 Linezolid 300 ml @ 300 mls/hr EVERY 12 HOURS IVPB 01/24/20 21:00 01/31/20 20:59 01/25/20 20:14 Loperamide HCl (Imodium) 2 mg Q6H NG 01/24/20 20:00 02/23/20 19:59 01/25/20 20:15 Lorazepam (Ativan) 1 mg Q6H PRN GT For Anxiety 01/22/20 00:30 01/29/20 00:29 01/25/20 20:15 Meropenem 1 gm/ Sodium Chloride 100 ml @ 200 mls/hr Q12H IVPB 01/22/20 16:00 01/27/20 15:59 01/25/20 16:41 Metoclopramide HCl (Reglan) 5 mg Q6H IVP 01/05/20 09:15 02/04/20 09:14 01/25/20 20:28 Metoprolol Tartrate (Lopressor) 100 mg EVERY 12 HOURS GT 01/21/20 09:00 04/20/20 08:59 01/25/20 20:15 Micafungin Sodium 100 mg/Sodium Chloride 100 ml @ 100 mls/hr Q24H IVPB 01/20/20 19:00 01/27/20 18:59 01/25/20 18:06 Minocycline HCl (Minocin) 100 mg Q12HR ORAL 01/22/20 21:00 01/29/20 20:59 01/25/20 20:15 Multivitamins (Multivitamins W/ Minerals 15ml Liquid) 15 ml Q24H GT 01/18/20 11:00 02/17/20 10:59 01/25/20 11:04 Pantoprazole (Protonix) 40 mg EVERY 12 HOURS IVP 01/01/20 21:00 01/31/20 20:59 01/25/20 20:14 Polyethylene Glycol (Miralax) 17 gm BEDTIME PRN GT Constipation 01/24/20 21:00 02/23/20 20:59 Quetiapine Fumarate (SEROqueL) 75 mg Q8HR GT 01/25/20 06:00 03/10/20 05:59 01/25/20 22:05 Neurological/Psychiatric: Reports: anxiety, depressed, emotional problems Allergies: Coded Allergies: ERYTHROMYCIN BASE (Verified Allergy, Severe, 12/12/19) HALOPERIDOL (Verified Allergy, Unknown, 12/12/19) VANCOMYCIN (Unverified Adverse Reaction, Intermediate, Shortness of Breath, 12/12/19) Objective Data Height (Feet): 5 Height (Inches): 6.00 Weight (Pounds): 343 General Appearance: no apparent distress Additional Comments: Assessment/Plan Mathews I: seroquel 100 tid ativan 1mg q 8 hrs/prn dc bilat restraints. dc midazolam Status: stable Status Narrative seroquel 100 tid ativan 1mg q 8 hrs/prn dc bilat restraints. dc midazolam Assessment/Plan: seroquel 100 tid ativan 1mg q 8 hrs/prn dc bilat restraints. dc midazolam Harris Ballesteros MD Jan 25, 2020 23:37
[2020-01-26] VITALS (39 sets, daily range): BP systolic 66–167; BP diastolic 35–112
[2020-01-26] MEDS: Acetylcysteine 20% Soln 4ml HHN SCH ×4 (00:50→19:08)
[2020-01-26] MEDS: Ipratropium 0.02% Inh Soln 2.5ml UD HHN PRN ×4 (00:50→19:08)
--- NOTE | 2020-01-26 01:00 | NUR ---
NURSE NOTES: Bed Bath given tolerated well.
[2020-01-26] MEDS: Metoclopramide 10mg/2ml Inj IVP SCH ×4 (02:24→20:59)
--- NOTE | 2020-01-26 03:00 | NUR ---
NURSE NOTES: Patient in bed no s/s of acute distress noted. Code status DNR, cooling measure continued. frequent visual checks continued. will continue plan of care.
--- NOTE | 2020-01-26 05:00 | NUR ---
NURSE NOTES: Patient trach to vent fi02 40% satting 100%. HOB elevated. no s/s of acute distress noted. AFIB on cardiac care nurse HR 135. Left upper arm PICC line intact . GT intact infusing Glucerna 1.2 at 60cc/hr no residual. Lockett draining. On P200 mattress for wound management. Contact isolation maintained and observed. bilateral wrist restraint intact with episode of pulling out tubing. reality orientation provided.noted with generalized edema+2. dressing intact on right lower leg. bilateral arm and legs elevated with pillows. frequent visual checks continued. will continue plan of care
[2020-01-26] MEDS: LORazepam 0.5mg tab GT PRN ×2 (06:24→17:08)
[2020-01-26] MEDS: dilTIAZem HCl 90mg tab ORAL SCH ×4 (06:25→23:37)
--- NOTE | 2020-01-26 07:20 | NUR ---
NURSE NOTES: Received report from NOEL Smith. Patient noted in bed, laying with her eyes closed, easily arousable to voice and physical stimuli. Trach to vent, Shiley 8, Vent settings: AC 18, TV 600, FiO2 40%, PEEP 5, fi02 40%; O2sat 100%. HOB elevated. no s/s of acute distress noted. AFIB on groundwater monitoring technician HR 114. Left upper arm PICC line intact, dressing clean and dry. GT intact infusing Glucerna 1.2 at 60cc/hr. Lockett noted and patent, draining yellow urine to urometer. On P200 mattress for wound management. Pt also on a cooling blanket for cooling measures. Pt received and maintained on Bilateral soft wrist restraints for safety, pulses and surrounding skin intact. Noted with generalized edema+2. Dressing intact on right lower leg. Bilateral arm and legs elevated with pillows. Bed locked and in lowest position with call light within reach. Will continue plan of care
--- NOTE | 2020-01-26 07:30 | NUR ---
HAND-OFF: Report given to Olive COHEN.
--- NOTE | 2020-01-26 07:47 | General Progress Note ---
Subjective ROS Limited/Unobtainable: No Allergies: Coded Allergies: ERYTHROMYCIN BASE (Verified Allergy, Severe, 12/12/19) HALOPERIDOL (Verified Allergy, Unknown, 12/12/19) VANCOMYCIN (Unverified Adverse Reaction, Intermediate, Shortness of Breath, 12/12/19) Objective Last 24 Hour Vital Signs Date Time Temp Pulse Resp B/P (MAP) Pulse Ox O2 Delivery O2 Flow Rate FiO2 01/26/20 07:00 145 27 115/82 (93) 99 01/26/20 06:54 131 27 115/82 99 01/26/20 06:30 155 27 132/63 (86) 98 01/26/20 06:25 126 122/80 01/26/20 06:24 126 25 122/80 89 01/26/20 06:00 147 28 126/84 (98) 98 01/26/20 05:00 129 25 66/35 (45) 98 01/26/20 04:08 135 01/26/20 04:00 98.7 126 25 122/80 (94) 89 01/26/20 04:00 40 01/26/20 04:00 Mechanical Ventilator 01/26/20 03:32 106 32 40 01/26/20 03:30 121 21 106/69 (81) 91 01/26/20 03:00 113 25 93/69 (77) 01/26/20 02:24 105 01/26/20 02:00 109 21 121/70 (87) 01/26/20 01:00 97 19 127/63 (84) 01/26/20 00:56 104 22 100 Mechanical Ventilator 40 106 24 40 01/26/20 00:30 106 25 126/80 (95) 01/26/20 00:05 106 01/26/20 00:00 97 19 111/71 (84) 01/26/20 00:00 Mechanical Ventilator 01/26/20 00:00 40 01/25/20 23:42 99 120/59 01/25/20 23:30 99 20 120/59 (79) 01/25/20 23:29 110 21 40 01/25/20 23:00 111 23 129/67 (87) 100 01/25/20 22:00 99 23 99/70 (80) 96 01/25/20 21:02 92 01/25/20 21:00 96 19 111/61 (78) 98 01/25/20 20:56 107 01/25/20 20:45 115 28 116/74 100 01/25/20 20:29 115 01/25/20 20:15 113 28 116/74 100 01/25/20 20:15 113 116/74 01/25/20 20:00 40 01/25/20 20:00 98.0 106 21 115/63 (80) 94 01/25/20 20:00 Mechanical Ventilator 01/25/20 19:28 113 28 100 Mechanical Ventilator 40 115 30 40 01/25/20 19:14 104 01/25/20 19:00 118 26 116/74 (88) 99 01/25/20 18:05 110 116/66 01/25/20 18:00 104 20 116/66 (83) 99 01/25/20 17:00 96 19 121/62 (81) 96 01/25/20 16:42 97 01/25/20 16:00 Mechanical Ventilator 01/25/20 16:00 97.2 105 21 122/70 (87) 99 01/25/20 16:00 40 01/25/20 15:44 114 01/25/20 15:30 114 25 122/62 (82) 98 01/25/20 15:00 104 21 109/61 (77) 98 01/25/20 15:00 111 25 40 01/25/20 14:35 105 01/25/20 14:30 100 23 116/69 (85) 100 01/25/20 14:00 105 27 112/66 (81) 100 01/25/20 13:37 104 26 100 Mechanical Ventilator 40 103 24 40 01/25/20 13:30 98 19 114/72 (86) 100 01/25/20 13:00 96 20 103/66 (78) 100 01/25/20 12:30 99 19 118/85 (96) 100 01/25/20 12:00 97.5 106 21 119/78 (92) 100 01/25/20 12:00 40 01/25/20 12:00 Mechanical Ventilator 01/25/20 11:49 110 01/25/20 11:30 115 23 124/77 (93) 96 01/25/20 11:28 112 22 40 01/25/20 11:05 112 135/85 01/25/20 11:00 121 24 135/85 (102) 96 01/25/20 10:30 113 20 117/74 (88) 96 01/25/20 10:02 98 01/25/20 10:00 123 21 126/74 (91) 96 01/25/20 09:30 101 19 103/71 (82) 98 01/25/20 09:30 101 27 40 40 01/25/20 09:00 96 18 114/65 (81) 100 01/25/20 08:30 104 18 125/79 (94) 93 01/25/20 08:08 108 143/127 01/25/20 08:00 96.8 105 17 143/127 (132) 92 01/25/20 08:00 40 01/25/20 08:00 Mechanical Ventilator 01/25/20 07:59 108 22 97 Mechanical Ventilator 40 111 19 40 Intake and Output 01/25/20 01/26/20 19:00 07:00 Intake Total 1589.285 ml 1900 ml Output Total 1650 ml 1350 ml Balance -60.715 ml 550 ml Free Water 400 ml 600 ml IV Total 469.285 ml 400 ml Tube Feeding 720 ml 720 ml Other 180 ml Output Urine Total 1650 ml 1300 ml Stool Total 50 ml Height (Feet): 5 Height (Inches): 6.00 Weight (Pounds): 343 General Appearance: no apparent distress EENT: PERRL/EOMI Neck: supple Cardiovascular: normal rate Respiratory/Chest: decreased breath sounds Abdomen: soft, hypoactive bowel sounds Extremities: non-tender Assessment/Plan Problem List: (1) CKD (chronic kidney disease) stage 3, GFR 30-59 ml/min ICD Codes: N18.3 - Chronic kidney disease, stage 3 (moderate) SNOMED: 284823900 (2) COPD (chronic obstructive pulmonary disease) ICD Codes: J44.9 - Chronic obstructive pulmonary disease, unspecified SNOMED: 14873584 (3) Smoker ICD Codes: F17.200 - Nicotine dependence, unspecified, uncomplicated SNOMED: 60615298 (4) GERD (gastroesophageal reflux disease) ICD Codes: K21.9 - Gastro-esophageal reflux disease without esophagitis SNOMED: 564516200 (5) Atrial fibrillation with RVR ICD Codes: I48.91 - Unspecified atrial fibrillation SNOMED: 114143397768770 Status: stable Assessment/Plan: fu H&H monitor labs fu cardiology recs icu care ppi cbc in am s/p Trach and PEG GTF monitor for residuals Mervin Victoria MD Jan 26, 2020 07:46
--- NOTE | 2020-01-26 08:09 | Pulmonolgy Critical Care Note ---
Luz Bowen PROJECT DESIGN ENGINEER 01/26/20 0808: Critical Care - Asmt/Plan Assessment/Plan: ASSESSMENT acute hypoxemic hypercapnic resp failure, requiring intubation 12/22 failure to wean s/p trach 01/08 COVID 19 PNA ( last test x 2 NGT) sepsis fungemia empyema s/p L thoracotomy 01/17, s/p removal UTI with E coli ESBL UTI VRE possible aspiration PNA - s/p treatment Moderate R pleural effusion s/p tap COPD Atrial fibrillation with RVR CHF Acute renal failure on CKD Severe anemia dysphagia, s/p PEG 01/08 Thrombocytopenia Status post ground fall Tobacco dependency Morbid obesity probable GARY R knee edema and hematoma, possible cellulitis Hyper Na due to free water deficit PLAN OF CARE s/p trach, prior not tolerated weaning trials; developed tachycardia /A fib with RVR weaned form Cardizem gtt , remains tachy, s/p Dig s/p tap 01/15 -500 ml pleural fluid pleural fl cx 01/15 E coli ESBL, GPC and yeast , glucose low -> c/w empyema abx as per ID recs s/p L thoracotomy 01/17 was on daily CXR while CT in, initially CT to Hemovac drainage, then to water seal, eventually was dc 01/21 CXR 01/22 -> Interim left chest tube removal. No pneumothorax Slightly increased right pleural effusion CXR 01/24 Right pleural effusion and bilateral interstitial and airspace parenchymal disease ->unchanged. acidosis resolved ; PEEP down to 5 ABG 01/23 stable, FiO2 down to 40% CT chest was pending, cancelled for now, not stable for procedure for now repeated COVID 19 01/14 and 01/17 NGT s/p steroids IV ( started 12/23) continue for total of 10 days till 01/02 s/p Remdesivir (started 12/24 ), dc 12/30 initial diagnoses with COVID 19 at [facility] 11/29, was not hypoxic and not intubated, was not treated with Remdesivivr , only received empiric abx for PNA DVT prophylaxis with Lovenox on diuresis with Lasix, monitor volumes closely creat remains stable consider d/c Diamox afib rate control - off Cardizem gtt , s/p Dig earlier, further management as per cardio GI prophylaxis with PPI s/p PEG 01/09, asp precautions, severely leukopenic ? due to meds vs ? primary BM disease -resolved monitor counts immunofixation screen unremarkable transfuse to keep Hgb > 7 , s/p transfusion 01/13 previously evaluated by bioethics -> DNR/DNI status appropriate consider transfer to LTAC for further management case discussed and evaluated by supervising physician Critical Care - Objective Last 24 Hour Vital Signs Date Time Temp Pulse Resp B/P (MAP) Pulse Ox O2 Delivery O2 Flow Rate FiO2 01/26/20 07:53 119 20 Mechanical Ventilator 40 40 01/26/20 07:00 145 27 115/82 (93) 99 01/26/20 06:54 131 27 115/82 99 01/26/20 06:30 155 27 132/63 (86) 98 01/26/20 06:25 126 122/80 01/26/20 06:24 126 25 122/80 89 01/26/20 06:00 147 28 126/84 (98) 98 01/26/20 05:00 129 25 66/35 (45) 98 01/26/20 04:08 135 01/26/20 04:00 98.7 126 25 122/80 (94) 89 01/26/20 04:00 40 01/26/20 04:00 Mechanical Ventilator 01/26/20 03:32 106 32 40 01/26/20 03:30 121 21 106/69 (81) 91 01/26/20 03:00 113 25 93/69 (77) 01/26/20 02:24 105 01/26/20 02:00 109 21 121/70 (87) 01/26/20 01:00 97 19 127/63 (84) 01/26/20 00:56 104 22 100 Mechanical Ventilator 40 106 24 40 01/26/20 00:30 106 25 126/80 (95) 01/26/20 00:05 106 01/26/20 00:00 97 19 111/71 (84) 01/26/20 00:00 Mechanical Ventilator 01/26/20 00:00 40 01/25/20 23:42 99 120/59 01/25/20 23:30 99 20 120/59 (79) 01/25/20 23:29 110 21 40 01/25/20 23:00 111 23 129/67 (87) 100 01/25/20 22:00 99 23 99/70 (80) 96 01/25/20 21:02 92 01/25/20 21:00 96 19 111/61 (78) 98 01/25/20 20:56 107 01/25/20 20:45 115 28 116/74 100 01/25/20 20:29 115 01/25/20 20:15 113 28 116/74 100 01/25/20 20:15 113 116/74 01/25/20 20:00 40 01/25/20 20:00 98.0 106 21 115/63 (80) 94 01/25/20 20:00 Mechanical Ventilator 01/25/20 19:28 113 28 100 Mechanical Ventilator 40 115 30 40 01/25/20 19:14 104 01/25/20 19:00 118 26 116/74 (88) 99 01/25/20 18:05 110 116/66 01/25/20 18:00 104 20 116/66 (83) 99 01/25/20 17:00 96 19 121/62 (81) 96 01/25/20 16:42 97 01/25/20 16:00 Mechanical Ventilator 01/25/20 16:00 97.2 105 21 122/70 (87) 99 01/25/20 16:00 40 01/25/20 15:44 114 01/25/20 15:30 114 25 122/62 (82) 98 01/25/20 15:00 104 21 109/61 (77) 98 01/25/20 15:00 111 25 40 01/25/20 14:35 105 01/25/20 14:30 100 23 116/69 (85) 100 01/25/20 14:00 105 27 112/66 (81) 100 01/25/20 13:37 104 26 100 Mechanical Ventilator 40 103 24 40 01/25/20 13:30 98 19 114/72 (86) 100 01/25/20 13:00 96 20 103/66 (78) 100 01/25/20 12:30 99 19 118/85 (96) 100 01/25/20 12:00 97.5 106 21 119/78 (92) 100 01/25/20 12:00 40 01/25/20 12:00 Mechanical Ventilator 01/25/20 11:49 110 01/25/20 11:30 115 23 124/77 (93) 96 01/25/20 11:28 112 22 40 01/25/20 11:05 112 135/85 01/25/20 11:00 121 24 135/85 (102) 96 01/25/20 10:30 113 20 117/74 (88) 96 01/25/20 10:02 98 01/25/20 10:00 123 21 126/74 (91) 96 01/25/20 09:30 101 19 103/71 (82) 98 01/25/20 09:30 101 27 40 40 01/25/20 09:00 96 18 114/65 (81) 100 01/25/20 08:30 104 18 125/79 (94) 93 01/25/20 08:08 108 143/127 Objective: CONDITION: critical General Appearance: morbidly obese , sedated, generalized anasarca ; on vent AC 600-18-40 % PEEP 5 Lines, tubes and drains: LUE PICC , intact HEENT: normocephalic, atraumatic, anicteric, Neck: trach with Shiley # 8, secretions with large amount, yellow color, thick consistency Respiratory/Chest: few isolated rhonchi , tachypneic Cardiovascular/Chest: irregularly irregular - A fib , tachy , distant heart sounds, Abdomen: normal bowel sounds, non tender , obese, soft distended ; G tube with TF : Lockett Extremities: no calf tenderness, moderate edema - +3 BLE, R knee with large hematoma, edema, Skin Exam: warm/dry, multiple tattoos Neurologic: sedated Musculoskeletal: normal muscle bulk Micro: Microbiology Date/Time Source Procedure Growth Status 01/24/20 19:40 Stool Clostridium difficile Toxin Assay - Final Complete Accucheck: 136 Critical Care - Subjective ROS Limited/Unobtainable: Yes Interval Events: no signs of resp distress on current setting, PEEP down to 5 fevers last night, currently afebrile weaned from Cardizem gtt, but again developed RVR, s/p Digoxin, remains tachy Condition: critical IV Access: PICC - LUE PICC intact EKG Rhythm: Atrial Fibrillation - with RVR FI02: 40 Vent Support Breath Rate: 18 Vent Support Mode: AC Vent Tidal Volume: 600 Sputum Amount: Large PEEP: 5.0 PIP: 29 Tube Feeding Amount: 60 I&O: Intake and Output 01/25/20 01/26/20 19:00 07:00 Intake Total 1589.285 ml 2100 ml Output Total 1650 ml 1350 ml Balance -60.715 ml 750 ml Free Water 400 ml 600 ml IV Total 469.285 ml 600 ml Tube Feeding 720 ml 720 ml Other 180 ml Output Urine Total 1650 ml 1300 ml Stool Total 50 ml CXR: CXR 01/24 Right pleural effusion and bilateral interstitial and airspace parenchymal disease is unchanged. Tracheostomy remains Igor Carpio MD 01/26/20 1357: Critical Care - Asmt/Plan Assessment/Plan: Patient seen and examined with PROJECT DESIGN ENGINEER. Agree with above A&P as it reflects our joint deliberations. Time Spent (Minutes): 40 Luz Bowen NP Jan 26, 2020 08:08 Igor Carpio MD Jan 26, 2020 13:57
[2020-01-26] MEDS ORDERED: D5 1/2NS 1000ml IV ONE (09:17)
[2020-01-26] MEDS ORDERED: Tubing IV Secondary IV ONE (09:17)
[2020-01-26] MEDS ORDERED: NS 275ml ONE (09:17)
--- NOTE | 2020-01-26 09:30 | NUR ---
NURSE NOTES: Tylenol 650MG given for temp of 100.7. Pt also on a cooling blanket. Will continue to monitor.
[2020-01-26] MEDS: Acetaminophen 650mg/20.3ml GT PRN (09:37)
[2020-01-26] MEDS: Digoxin 0.125mg tab GT SCH (09:38)
[2020-01-26] MEDS: Metoprolol Tartrate 50mg tab GT SCH ×2 (09:38→20:59)
[2020-01-26] MEDS: Minocycline HCl 50mg cap ORAL SCH ×2 (09:38→20:59)
[2020-01-26] MEDS: Enoxaparin 60mg Inj SUBQ SCH (09:39)
[2020-01-26] MEDS: Pantoprazole Inj IVP SCH ×2 (09:39→20:59)
[2020-01-26] MEDS: Bacitracin Oint 15gm Tube TOPIC SCH ×2 (09:40→20:58)
--- NOTE | 2020-01-26 10:58 | NUR ---
NURSE NOTES: Dr Buckner at bedside assessing pt. Updated him on pt's current condition. No new orders given at this time.
[2020-01-26] MEDS: Multivitamins W/Minerals 15 ML UDC GT SCH (11:32)
--- NOTE | 2020-01-26 11:53 | Surgery Progress Note ---
Surgery Progress Note Subjective Procedure Performed left tube thoracotomy Additional Comments ill appearing no acute events on vent support dressings dry and intact labs noted Objective Last 24 Hour Vital Signs Date Time Temp Pulse Resp B/P (MAP) Pulse Ox O2 Delivery O2 Flow Rate FiO2 01/26/20 11:32 101 99/55 01/26/20 11:00 109 22 97/58 (71) 95 01/26/20 10:30 115 20 91/58 (69) 95 01/26/20 10:07 99.7 01/26/20 10:00 124 21 95/58 (70) 95 01/26/20 09:38 119 01/26/20 09:38 119 111/71 01/26/20 09:00 157 28 111/71 (84) 95 01/26/20 08:30 117 20 94/45 (61) 100 01/26/20 08:04 118 18 83/43 (56) 93 01/26/20 08:00 100.0 120 18 76/36 (49) 100 01/26/20 08:00 40 01/26/20 08:00 Mechanical Ventilator 01/26/20 07:53 119 20 Mechanical Ventilator 40 40 01/26/20 07:00 145 27 115/82 (93) 99 01/26/20 06:54 131 27 115/82 99 01/26/20 06:30 155 27 132/63 (86) 98 01/26/20 06:25 126 122/80 01/26/20 06:24 126 25 122/80 89 01/26/20 06:00 147 28 126/84 (98) 98 01/26/20 05:00 129 25 66/35 (45) 98 01/26/20 04:08 135 01/26/20 04:00 98.7 126 25 122/80 (94) 89 01/26/20 04:00 40 01/26/20 04:00 Mechanical Ventilator 01/26/20 03:32 106 32 40 01/26/20 03:30 121 21 106/69 (81) 91 01/26/20 03:00 113 25 93/69 (77) 01/26/20 02:24 105 01/26/20 02:00 109 21 121/70 (87) 01/26/20 01:00 97 19 127/63 (84) 01/26/20 00:56 104 22 100 Mechanical Ventilator 40 106 24 40 10/17/20 00:30 106 25 126/80 (95) 01/26/20 00:05 106 01/26/20 00:00 97 19 111/71 (84) 01/26/20 00:00 Mechanical Ventilator 01/26/20 00:00 40 01/25/20 23:42 99 120/59 01/25/20 23:30 99 20 120/59 (79) 01/25/20 23:29 110 21 40 01/25/20 23:00 111 23 129/67 (87) 100 01/25/20 22:00 99 23 99/70 (80) 96 01/25/20 21:02 92 01/25/20 21:00 96 19 111/61 (78) 98 01/25/20 20:56 107 01/25/20 20:45 115 28 116/74 100 01/25/20 20:29 115 01/25/20 20:15 113 28 116/74 100 01/25/20 20:15 113 116/74 01/25/20 20:00 40 01/25/20 20:00 98.0 106 21 115/63 (80) 94 01/25/20 20:00 Mechanical Ventilator 01/25/20 19:28 113 28 100 Mechanical Ventilator 40 115 30 40 01/25/20 19:14 104 01/25/20 19:00 118 26 116/74 (88) 99 01/25/20 18:05 110 116/66 01/25/20 18:00 104 20 116/66 (83) 99 01/25/20 17:00 96 19 121/62 (81) 96 01/25/20 16:42 97 01/25/20 16:00 Mechanical Ventilator 01/25/20 16:00 97.2 105 21 122/70 (87) 99 01/25/20 16:00 40 01/25/20 15:44 114 01/25/20 15:30 114 25 122/62 (82) 98 01/25/20 15:00 104 21 109/61 (77) 98 01/25/20 15:00 111 25 40 01/25/20 14:35 105 01/25/20 14:30 100 23 116/69 (85) 100 01/25/20 14:00 105 27 112/66 (81) 100 01/25/20 13:37 104 26 100 Mechanical Ventilator 40 103 24 40 01/25/20 13:30 98 19 114/72 (86) 100 01/25/20 13:00 96 20 103/66 (78) 100 01/25/20 12:30 99 19 118/85 (96) 100 01/25/20 12:00 97.5 106 21 119/78 (92) 100 01/25/20 12:00 40 01/25/20 12:00 Mechanical Ventilator I&O Intake and Output 01/25/20 01/26/20 19:00 07:00 Intake Total 1589.285 ml 2100 ml Output Total 1650 ml 1350 ml Balance -60.715 ml 750 ml Free Water 400 ml 600 ml IV Total 469.285 ml 600 ml Tube Feeding 720 ml 720 ml Other 180 ml Output Urine Total 1650 ml 1300 ml Stool Total 50 ml Dressing: dry Cardiovascular: RSR Respiratory: decreased breath sounds Abdomen: soft, non-tender, present bowel sounds, non-distended Extremities: edema, cyanosis, other Plan Problems: (1) Urinary tract infection (2) CHF exacerbation (3) History of schizophrenia (4) Atrial fibrillation with RVR (5) Schizophrenia (6) GERD (gastroesophageal reflux disease) (7) Smoker (8) Atrial fibrillation with rapid ventricular response (9) Lymphadema (10) COPD (chronic obstructive pulmonary disease) (11) CKD (chronic kidney disease) stage 3, GFR 30-59 ml/min (12) NATALIE (acute kidney injury) (13) Dehydration (14) Dysphagia (15) UTI (urinary tract infection) (16) UGI bleed (17) ESBL (extended spectrum beta-lactamase) producing bacteria infection (18) Constipation (19) Lactic acidosis (20) Tinea cruris (21) Onychomycosis (22) Emesis (23) Essential hypertension (24) Anemia (25) Cough (26) Depression (27) Depression (28) Edema (29) Rash (30) Opiate dependence (31) Opiate dependence (32) Opiate dependence (33) Opiate dependence (34) Pyelonephritis (35) Sepsis (36) UTI (urinary tract infection) (37) Nausea and vomiting (38) Abdominal pain Assessment & Plan: [age]-year-old female obese white abdominal pain deep tissue injury identified limited mobility on HD. KUB noted tube in place continue meds feeds Does not seem obstructed We will monitor lines noted. plan change resume tube feeds labs okay FINDINGS: Lower thorax: Obscuration of the left costophrenic angle suggestive of pleural effusion. Intraperitoneal space: No free air. Gastrointestinal tract: Unremarkable. No dilation. Bones/joints: Unremarkable. Tubes, lines and devices: The nasogastric tube has the tip at the mid inferior aspect of the gastric body. Other findings: Nonspecific gas pattern. Single frontal view of the abdomen demonstrates tip of the enteric tube and distal side-port projecting over the stomach. Gas is identified within the nondistended large bowel. There is a paucity of small bowel gas seen. Partially visualized left pleural effusion. No other significant interval change. (39) Chest pain (40) Chest pain (41) Nausea (42) Obesity (43) Chronic ulcer of leg (44) Chronic ulcer of leg (45) Chronic ulcer of leg (46) ACS (acute coronary syndrome) (47) Acute chest pain (48) Encounter for dressing change or suture removal (49) Left leg cellulitis (50) Acute encephalopathy (51) Encounter for wound re-check (52) Intractable nausea and vomiting (53) Infection due to ESBL-producing Escherichia coli (54) Chronic venous stasis (55) Change of dressing (56) Change of dressing (57) Change of dressing (58) Change of dressing (59) Change of dressing (60) Change of dressing (61) Change of dressing (62) Change of dressing (63) ESBL urine (64) Lymphadema (65) Lymphedema (66) Lymphedema (67) Lymphedema (68) Lymphedema (69) Lymphedema (70) Lymphedema (71) Lymphedema (72) Lymphedema (73) Open wound of foot (74) Open wound of foot (75) cellulitis (76) chronic lymphedema (77) chronic lymphedema (78) chronic lymphedema (79) hypertension uncontrolled (80) hypertension uncontrolled (81) Intertrigo (82) Sciatica (83) Cellulitis (84) Schizophrenia (85) Chronic bronchitis (86) HTN (hypertension) (87) Venous stasis ulcers (88) Medication refill (89) Chest pain, atypical (90) BMI 45.0-49.9, adult (91) Lymphedema of both lower extremities (92) hypertension uncontrolled (93) hypertension uncontrolled (94) hypertension uncontrolled (95) tenia corpus (96) Deep tissue injury Assessment & Plan: Morbidly obese pt whom presented on admission with Pressure injuries, Edemae bilat lower extremities eschar to dorsal aspects of metatarsals. Pt is very demanding of staff and can be resistive to repositioning. DTPI noted to L Sacrum(L)5.5cm x (W)2.5cm. Base of Pressure Injury is Maroon and indurated with surrounding non-blanchable erythema DTPI R Sacrum(L)5.5cm x (W)2.3cm. Base of Pressure Injury is maroon with purpuric center that is fluctuant. Pt complained of tenderness when minimally palpated. Bilat lower extremities are edematous . Dry eschar noted to nail matrix and tip of L 1st metatarsal, Dorsal L 2nd metatarsal, R 2nd and R 4th metatarsals. Both heels are boggy with non-Blanchable erythema. blisters forming on Right lower extremity anterior tibia. not infected cellulitis / edema on b/l le stable cont abx Tx.Plan: Apply Moisture Barrier Paste to Sacrum R and L gluteal cheeks. Cover with Optifoam drsgs. Change every 3 days and prn. Apply Betadine to dry eschar metatarsals both feet Daily. Apply Cavilon Skin Barrier to both heels. Cover each heel with Optifoam drsgs. Change every 7days and prn. Reposition at least every 2hours or as tolerated. Off-load heels with pillow. right leg hematoma stable critically ill and edema on right leg has compromised dermis over the hematoma. will likely need debridement once improved (97) COVID-19 Assessment & Plan: ++ on vent weaning abx as per ID (98) Respiratory failure Assessment & Plan: not able to wean safely will plan for trach case discussed with medical team, pulm, icu. recommended to trach given medical condition. medically indicated and recommended. s/p trach 01/08 s/p trach more comfortable less agitated on vent weaning here is complete or near complete opacification of left hemithorax. There is increasing pleural fluid on the right. Interstitial and airspace disease on the right is unchanged. Tracheostomy is again demonstrated Impression: Complete or near complete opacification left hemithorax. This may indicate rapidly accumulating pleural effusion, versus atelectatic left lung. chest tube 01/17 left chest tube to water seal am cxr (99) Pneumonia Juan Manuel Buckner Jan 26, 2020 11:53
--- NOTE | 2020-01-26 12:00 | NUR ---
NURSE NOTES: Pt turned and repositioned for comfort. Oral care done. No distress noted at this time.
--- NOTE | 2020-01-26 13:50 | NUR ---
NURSE NOTES: Dr Beasley at bedside assessing pt. Updated him on pt's current condition.
--- NOTE | 2020-01-26 14:38 | Infectious Diseases Prog Note ---
Assessment/Plan Assessment/Plan ASSESSMENT AND PLAN: 1. MDR acinetobacter pna - S-minocycline, I-colistin, polymyxin hx esbl e.coli uti/pyelonephritis, sepsis, leukocytosis, fevers mrsa and vre colonization, NATALIE, respiratory distress/failure Fungemia - + yeast in blood - s/p micafungin, surveillance blood cultures negative hx mrsa pna/acinetobacter pna hx VRE uti covid-19 infection right leg swelling and redness noted, ? cellulitis, ? infected hematoma, ? wound infection esbl empyema, + yeast- rogers glabrata /enterococcus, s/p chest tube but now removed diarrhea, rectal tube - c.diff. negative - minocycline, meropenem, zyvox, micafungin - day # 7 combination - s/p remdesivir, s/p dexamethasone - monitor labs and chest x-ray, monitor fevers - ? debridement right leg per surgery when patient stable - d/w surgery, no intervention at this time - d/w RN - d/w Dr. Carpio 2. Chronic kidney failure, acute renal failure. 3. COPD. 4. Pulmonary followup. 5. Renal followup. 6. History of falls. 7. Atrial fibrillation. Cardiology followup. 8. Obesity. 9. Gait disorder. 10. Schizophrenia. 11. Homeless. 12. Allergic to erythromycin, haloperidol, and vancomycin. 13. Social history is negative. 14. Family history is noncontributory. 15. MAR is noted. 16. Case discussed with RN. 17. Continue treatment per Dr. Dumont and consultants. Subjective Constitutional: Reports: fever, fatigue, other - trach and vent, fever curve better but still with low grade fevers HEENT: Reports: congestion Respiratory: Reports: shortness of breath Cardiovascular: Reports: other - no pressors Gastrointestinal/Abdominal: Reports: other - + rectal tube noted ; Denies: nausea, vomiting Neurologic: Reports: weakness, other - lethargic, on vent Psychiatric: Reports: other - NA Skin: Denies: rash Hematologic: Denies: bleeding Musculoskeletal: Reports: other - NA Allergies: Coded Allergies: ERYTHROMYCIN BASE (Verified Allergy, Severe, 12/12/19) HALOPERIDOL (Verified Allergy, Unknown, 12/12/19) VANCOMYCIN (Unverified Adverse Reaction, Intermediate, Shortness of Breath, 12/12/19) Objective Last 24 Hour Vital Signs Date Time Temp Pulse Resp B/P (MAP) Pulse Ox O2 Delivery O2 Flow Rate FiO2 01/26/20 13:00 102 19 92/55 (67) 90 01/26/20 12:30 100 18 99 Mechanical Ventilator 40 99 18 01/26/20 12:00 Mechanical Ventilator 01/26/20 12:00 99.9 99 20 85/49 (61) 100 01/26/20 12:00 97 01/26/20 12:00 40 01/26/20 11:32 101 99/55 01/26/20 11:30 99 19 95/55 (68) 100 01/26/20 11:00 109 22 97/58 (71) 95 01/26/20 10:30 115 20 91/58 (69) 95 01/26/20 10:07 99.7 01/26/20 10:00 124 21 95/58 (70) 95 01/26/20 09:38 119 01/26/20 09:38 119 111/71 01/26/20 09:00 157 28 111/71 (84) 95 01/26/20 08:30 117 20 94/45 (61) 100 01/26/20 08:04 118 18 83/43 (56) 93 01/26/20 08:00 100.0 120 18 76/36 (49) 100 01/26/20 08:00 40 01/26/20 08:00 Mechanical Ventilator 01/26/20 08:00 117 01/26/20 07:53 119 20 100 Mechanical Ventilator 40 120 20 40 01/26/20 07:00 145 27 115/82 (93) 99 01/26/20 06:54 131 27 115/82 99 01/26/20 06:30 155 27 132/63 (86) 98 01/26/20 06:25 126 122/80 01/26/20 06:24 126 25 122/80 89 01/26/20 06:00 147 28 126/84 (98) 98 01/26/20 05:00 129 25 66/35 (45) 98 01/26/20 04:08 135 01/26/20 04:00 98.7 126 25 122/80 (94) 89 01/26/20 04:00 40 01/26/20 04:00 Mechanical Ventilator 01/26/20 03:32 106 32 40 01/26/20 03:30 121 21 106/69 (81) 91 10/17/20 03:00 113 25 93/69 (77) 01/26/20 02:24 105 01/26/20 02:00 109 21 121/70 (87) 01/26/20 01:00 97 19 127/63 (84) 01/26/20 00:56 104 22 100 Mechanical Ventilator 40 106 24 40 01/26/20 00:30 106 25 126/80 (95) 01/26/20 00:05 106 01/26/20 00:00 97 19 111/71 (84) 01/26/20 00:00 Mechanical Ventilator 01/26/20 00:00 40 01/25/20 23:42 99 120/59 01/25/20 23:30 99 20 120/59 (79) 01/25/20 23:29 110 21 40 01/25/20 23:00 111 23 129/67 (87) 100 01/25/20 22:00 99 23 99/70 (80) 96 01/25/20 21:02 92 01/25/20 21:00 96 19 111/61 (78) 98 01/25/20 20:56 107 01/25/20 20:45 115 28 116/74 100 01/25/20 20:29 115 01/25/20 20:15 113 28 116/74 100 01/25/20 20:15 113 116/74 01/25/20 20:00 40 01/25/20 20:00 98.0 106 21 115/63 (80) 94 01/25/20 20:00 Mechanical Ventilator 01/25/20 19:28 113 28 100 Mechanical Ventilator 40 115 30 40 01/25/20 19:14 104 01/25/20 19:00 118 26 116/74 (88) 99 01/25/20 18:05 110 116/66 01/25/20 18:00 104 20 116/66 (83) 99 01/25/20 17:00 96 19 121/62 (81) 96 01/25/20 16:42 97 01/25/20 16:00 Mechanical Ventilator 01/25/20 16:00 97.2 105 21 122/70 (87) 99 01/25/20 16:00 40 01/25/20 15:44 114 01/25/20 15:30 114 25 122/62 (82) 98 01/25/20 15:00 104 21 109/61 (77) 98 01/25/20 15:00 111 25 40 01/25/20 14:35 105 Height (Feet): 5 Height (Inches): 6.00 Weight (Pounds): 343 General Appearance: other - + trach and vent, no pressors HEENT: normocephalic, atraumatic, anicteric Respiratory/Chest: crackles/rales, rhonchi - bilaterally Cardiovascular: normal rate, regular rhythm, no gallop/murmur, no JVD Abdomen: normal bowel sounds, soft, non tender Genitourinary: other - + trivedi - urine slt cloudy Extremities: no cyanosis, other - right leg covered Skin: no lesions Neurologic/Psychiatric: other - lethargic, weak, on vent Lymphatic: no neck adenopathy Musculoskeletal: no effusion Chest x-ray - 11/17/19 - Procedure: XRAY Chest 1v Indication: Shortness of breath Technique: One view of the chest Comparison: 12/17/2019 Findings: The heart is enlarged. There is bilateral interstitial and airspace disease is again demonstrated, probably unchanged allowing for differences in degree of inspiration. Impression: Unchanged, over one day, findings as above. Chest x-ray - 12/21/19 - Procedure: XRAY Chest 1v Indication: Shortness of breath Technique: One view of the chest Comparison: 12/19/2019 Findings: The heart is enlarged. Bilateral extensive infiltrates are again demonstrated, stable to slightly worse allowing for differences in exposure technique. There is suggestion of increasing pleural fluid on the left. Nasogastric tube is again demonstrated. Impression: Stable to worsened bilateral extensive infiltrates, since exam of 2 days prior Increasing left pleural effusion Chest x-ray - 12/23/19 - IMPRESSION: 1. No significant interval change from the prior chest x-ray. 2. Persistent moderate left pleural effusion and mild right pleural effusion. 3. Pulmonary vascular congestion. 4. Persistent opacity in the left lung base, which may represent atelectasis versus pneumonia. Chest x-ray - 12/25/19 - Procedure: XRAY Chest 1v Procedure: XRAY Chest 1v Reason for study: Reason For Exam: SOB Comparison films: 12/24/2019. FINDINGS: The tracheal tube and NG tube remain in place. Vascular prominence and bilateral hazy alveolar densities are unchanged. Cardiomegaly and small effusions also unchanged. The bony thorax appear unremarkable. IMPRESSION: NO SIGNIFICANT CHANGE COMPARED TO PREVIOUS EXAM. 12/26/19 - Procedure: XRAY Chest 1v Procedure: XRAY Chest 1v Reason for study: Reason For Exam: SOB Comparison films: 12/25/2019. FINDINGS: Endotracheal tube and NG tube remain in place. Hazy bilateral alveolar densities are essentially unchanged given the difference in technique. Cardiomegaly and right effusion again noted. The bony thorax appear unremarkable. IMPRESSION: NO SIGNIFICANT CHANGE COMPARED TO PREVIOUS EXAM. Chest x-ray - 12/28/19 - Procedure: XRAY Chest 1v Indication: Reason For Exam: SOB Technique: Single AP view of the chest. Comparison: Chest radiograph dated 12/27/2019 Findings: Exam is again noted to be diagnostically limited due to underpenetration, patient rotation, and exclusion of part of the left hemithorax from the [id number]. Within these limitations: No significant change in appearance of visualized cardiomediastinal silhouette. Unchanged layering right pleural effusion with associated basilar airspace opacities. Likely retrocardiac consolidation, unchanged. No apical pneumothoraces. Unchanged enteric and endotracheal tubes. Unchanged left PICC. Chest x-ray - 12/30/19 - FINDINGS: Distal tip of ET tube is above devika. Distal tip of the enteric tube is in stomach. Stable left arm PICC line with distal tip likely in the left subclavian vein. Cardiac silhouette is within normal limits allowing for portable and rotated technique. Low lung volumes with elevated left hemidiaphragm. Again noted is a moderate right effusion with patchy infiltrates in the right mid to lower lung. Probable retrocardiac infiltrates. IMPRESSION: Little interval change in moderate right effusion and pneumonia/aspiration. Suspected retrocardiac infiltrate. The distal tip of the left arm PICC line is not well seen past the level of the left mid subclavian vein. Lamoure location is in the cavoatrial junction. Recommend advancement. <MYCVCSECTION> Chest x-ray - 01/04/20 - Procedure: XRAY Chest 1v Indication: Dyspnea Technique: One view of the chest Comparison: 01/02/2020 Findings: Bilateral interstitial and airspace congestion, right pleural effusion, cardiomegaly persists, unchanged. Tube and line positions are unchanged Impression: Unchanged, over one day, findings as above. Chest x-ray - 01/06/20 - IMPRESSION: 1. Endotracheal tube terminates in the region of the lower thoracic trachea, approximately 2.6 cm above the devika. Enteric tube is difficult to visualize distally. 2. Similar opacities predominantly in the mid and lower lungs which may represent combination of pleural effusions and atelectasis versus pneumonia versus edema. Chest x-ray - 01/07/20 - Procedure: XRAY Chest 1v Indication: Shortness of breath Technique: One view of the chest Comparison: 01/06/2020 Findings: Stable satisfactory positions of endotracheal and orogastric tubes. Mild interstitial congestion and hazy ankle opacities are again demonstrated bilaterally. There appears to be a small amount of pleural fluid bilaterally, probably unchanged. Impression: Unchanged, over one day, findings as above. Chest x-ray - 01/10/20 - Procedure: XRAY Chest 1v Indication: There is a breath Technique: One view of the chest Comparison: 01/08/2020 Findings: Interim conversion of endotracheal tube to a tracheostomy, appearing well positioned. Orogastric tube remains. Bilateral interstitial and airspace infiltrates versus edema persists, unchanged. Small bilateral pleural effusions persist, unchanged. Impression: Interim tracheostomy placement. No radiographically evident complication Stable bilateral pleural and parenchymal disease Chest x-ray - 01/13/20 - FINDINGS/IMPRESSION: Midline tracheostomy tube. Left upper extremity PICC line terminates in the left brachycephalic vein, unchanged. Mild-moderate vascular congestion, which is mildly increased when compared to January 10, 2020. Moderate left pleural effusion, which has mildly increased when compared to January 10, 2020. No pneumothorax. Cardiomegaly. Calcified aorta. Chest x-ray - 01/16/20 - Procedure: XRAY Chest 1v Indication: Shortness of breath Technique: One view of the chest Comparison: 01/15/2020 Findings: Bilateral interstitial and airspace infiltrates versus edema appears slightly increased from the prior exam. Right pleural effusion appears slightly increased. Left pleural fluid probably present, smaller than the right, stable. The heart remains enlarged. Tracheostomy, left arm PICC remain. Impression: Slightly increased pulmonary infiltrates versus edema and right pleural effusion, over one day Chest x-ray - 01/20/20 - Procedure: XRAY Chest 1v INDICATION: status post tracheostomy. COMPARISON: Same day chest radiograph at 7:51 Findings/impression: Single portable frontal view demonstrates a tracheostomy. There are low lung volumes. Again identified is complete opacification of the left thorax. Interval worsening airspace opacities throughout the right lung. Small to moderate right pleural effusion. Stable cardiomegaly. No clinically significant pneumothorax. Unchanged positioning of the left upper extremity PICC line. Chest x-ray - 01/22/20 - Procedure: XRAY Chest 1v Indication: Shortness of breath Technique: One view of the chest Comparison: 01/21/2020 Findings: Left chest tube is again demonstrated. There is suggestion of slightly increased right pleural effusion, although apparent increase may in part be an artifact of increased patient rotation. Generalized mild congestive changes bilaterally are stable. Tracheostomy remains. Impression: Possibly increased right pleural effusion. Otherwise little interchange agent one day Chest x-ray - 01/24/20 - Procedure: XRAY Chest 1v Indication: Shortness of breath Technique: One view of the chest Comparison: 01/23/2020 Findings: Bilateral interstitial congestion and right pleural effusion are unchanged. The heart remains enlarged. Tracheostomy again demonstrated Impression: Unchanged, over one day, findings as above. Chest x-ray - 01/25/20- Procedure: XRAY Chest 1v Indication: Shortness of breath Technique: One view of the chest Comparison: 01/24/2020 Findings: Right pleural effusion and bilateral interstitial and airspace parenchymal disease is unchanged. Tracheostomy remains Impression: Unchanged, over one day, findings as above. Microbiology Date/Time Source Procedure Growth Status 01/24/20 19:40 Stool Clostridium difficile Toxin Assay - Final Complete 01/21/20 12:51 Indwelling Cath Urine Culture - Final NO GROWTH AFTER 48 HOURS Complete 01/21/20 12:40 Blood Blood Culture - Preliminary NO GROWTH AFTER 4 DAYS Resulted 01/18/20 04:00 Nasopharynx Coronavirus COVID-19 PCR ([facility]) - Final Complete 01/16/20 15:25 Body Fluid AFB Specimen Processing Tissue - Final Resulted 01/16/20 15:25 Body Fluid Acid Fast Bacilli Smear - Final Resulted 01/16/20 15:25 Body Fluid Acid Fast Bacilli Culture Pending Resulted 12/12/19 21:00 Rectum - Final NO CARBAPENEM-RESISTANT ENTEROBACTERI... Complete Microbiology Date/Time Source Procedure Growth Status 01/24/20 19:40 Stool Clostridium difficile Toxin Assay - Final Complete Labs Test 01/24/20 04:00 01/24/20 10:14 01/25/20 03:37 White Blood Count 7.4 K/UL (4.8-10.8) 6.9 K/UL (4.8-10.8) Red Blood Count 2.80 M/UL (4.20-5.40) 2.73 M/UL (4.20-5.40) Hemoglobin 8.2 G/DL (12.0-16.0) 7.8 G/DL (12.0-16.0) Hematocrit 25.0 % (37.0-47.0) 24.4 % (37.0-47.0) Mean Corpuscular Volume 89 FL (80-99) 89 FL (80-99) Mean Corpuscular Hemoglobin 29.1 PG (27.0-31.0) 28.7 PG (27.0-31.0) Mean Corpuscular Hemoglobin Concent 32.6 G/DL (32.0-36.0) 32.1 G/DL (32.0-36.0) Red Cell Distribution Width 18.8 % (11.6-14.8) 18.8 % (11.6-14.8) Platelet Count 223 K/UL (150-450) 208 K/UL (150-450) Mean Platelet Volume 7.1 FL (6.5-10.1) 6.8 FL (6.5-10.1) Neutrophils (%) (Auto) 81.6 % (45.0-75.0) % (45.0-75.0) Lymphocytes (%) (Auto) 8.4 % (20.0-45.0) % (20.0-45.0) Monocytes (%) (Auto) 7.9 % (1.0-10.0) % (1.0-10.0) Eosinophils (%) (Auto) 0.6 % (0.0-3.0) % (0.0-3.0) Basophils (%) (Auto) 1.6 % (0.0-2.0) % (0.0-2.0) Sodium Level 141 MMOL/L (136-145) 141 MMOL/L (136-145) Potassium Level 4.3 MMOL/L (3.5-5.1) 3.9 MMOL/L (3.5-5.1) Chloride Level 107 MMOL/L (98-107) 105 MMOL/L (98-107) Carbon Dioxide Level 25 MMOL/L (21-32) 28 MMOL/L (21-32) Anion Gap 9 mmol/L (5-15) 8 mmol/L (5-15) Blood Urea Nitrogen 48 mg/dL (7-18) 47 mg/dL (7-18) Creatinine 1.7 MG/DL (0.55-1.30) 1.4 MG/DL (0.55-1.30) Estimat Glomerular Filtration Rate 30.0 mL/min (>60) 37.5 mL/min (>60) Glucose Level 142 MG/DL (74-106) 128 MG/DL (74-106) Lactic Acid Level 1.80 mmol/L (0.4-2.0) Calcium Level 9.0 MG/DL (8.5-10.1) 8.8 MG/DL (8.5-10.1) Arterial Blood pH 7.410 (7.350-7.450) Arterial Blood Partial Pressure CO2 41.6 mmHg (35.0-45.0) Arterial Blood Partial Pressure O2 99.2 mmHg (75.0-100.0) Arterial Blood HCO3 25.8 mmol/L (22.0-26.0) Arterial Blood Oxygen Saturation 97.1 % (95-100) Arterial Blood Base Excess 1 (-2-2) Eugene Test Positive Total Bilirubin 0.5 MG/DL (0.2-1.0) Aspartate Amino Transf (AST/SGOT) 13 U/L (15-37) Alanine Aminotransferase (ALT/SGPT) 7 U/L (12-78) Alkaline Phosphatase 74 U/L (46-116) Total Protein 6.1 G/DL (6.4-8.2) Albumin 1.5 G/DL (3.4-5.0) Globulin 4.6 g/dL Albumin/Globulin Ratio 0.3 (1.0-2.7) Current Medications Medications (Trade) Dose Ordered Sig/Shiraz Route PRN Reason Start Time Stop Time Status Last Admin Dose Admin Acetaminophen (Tylenol) 650 mg Q4H PRN GT Temp >100.5 01/12/20 10:00 02/11/20 09:59 01/24/20 23:11 Acetaminophen (Tylenol) 650 mg Q4H PRN GT Mild Pain (Pain Scale 1-3) 01/12/20 10:00 02/11/20 09:59 01/26/20 09:37 Acetylcysteine (Mucomyst) 200 mg Q6HRT HHN 01/19/20 13:30 04/18/20 13:29 01/26/20 12:27 Albuterol Sulfate (Proventil MDI) 2 puff Q4H PRN INH Shortness of Breath 12/24/19 10:30 03/23/20 10:29 01/12/20 09:44 Ascorbic Acid (Vitamin C) 500 mg BEDTIME GT 01/17/20 21:00 02/16/20 20:59 01/25/20 20:15 Bacitracin (Bacitracin 15gm tube) 1 applic EVERY 12 HOURS TOPIC 01/16/20 11:00 04/15/20 10:59 01/26/20 09:40 Chlorhexidine Gluconate (Jessie-Hex 2%) 1 applic DAILY@1999 TOPIC 12/24/19 20:00 03/23/20 19:59 01/25/20 20:14 Clotrimazole (Lotrimin) 1 applic EVERY 12 HOURS TOPIC 01/05/20 09:00 03/12/20 08:59 01/26/20 09:40 Digoxin (Lanoxin) 0.125 mg DAILY GT 01/26/20 09:00 04/25/20 08:59 01/26/20 09:38 Diltiazem HCl (Cardizem Tab) 90 mg EVERY 6 HOURS ORAL 01/23/20 18:45 02/22/20 18:44 01/26/20 11:32 Enoxaparin Sodium (Lovenox) 60 mg DAILY SUBQ 01/13/20 12:00 04/12/20 11:59 01/26/20 09:39 Epoetin Cristiano (Epoetin Cristiano-EPBX(NON ESRD)) 10,000 unit TUE-TUE-TUE SUBQ 01/23/20 21:00 04/22/20 20:59 01/25/20 20:48 Furosemide (Lasix) 100 mg Q6HR IV 01/23/20 12:00 02/22/20 11:59 01/26/20 11:32 Ipratropium Hudson (Atrovent) 500 mcg Q6HRT PRN HHN Shortness of Breath 01/24/20 19:45 01/29/20 19:44 01/26/20 12:27 Linezolid 300 ml @ 300 mls/hr EVERY 12 HOURS IVPB 01/24/20 21:00 01/31/20 20:59 01/26/20 09:41 Loperamide HCl (Imodium) 2 mg Q6H NG 01/24/20 20:00 02/23/20 19:59 01/26/20 13:58 Lorazepam (Ativan) 1 mg Q6H PRN GT For Anxiety 01/22/20 00:30 01/29/20 00:29 01/26/20 06:24 Meropenem 1 gm/ Sodium Chloride 100 ml @ 200 mls/hr Q12H IVPB 01/22/20 16:00 01/27/20 15:59 01/26/20 03:16 Metoclopramide HCl (Reglan) 5 mg Q6H IVP 01/05/20 09:15 02/04/20 09:14 01/26/20 14:00 Metoprolol Tartrate (Lopressor) 100 mg EVERY 12 HOURS GT 01/21/20 09:00 04/20/20 08:59 01/26/20 09:38 Micafungin Sodium 100 mg/Sodium Chloride 100 ml @ 100 mls/hr Q24H IVPB 01/20/20 19:00 01/27/20 18:59 01/25/20 18:06 Minocycline HCl (Minocin) 100 mg Q12HR ORAL 01/22/20 21:00 01/29/20 20:59 01/26/20 09:38 Multivitamins (Multivitamins W/ Minerals 15ml Liquid) 15 ml Q24H GT 01/18/20 11:00 02/17/20 10:59 01/26/20 11:32 Pantoprazole (Protonix) 40 mg EVERY 12 HOURS IVP 01/01/20 21:00 01/31/20 20:59 01/26/20 09:39 Polyethylene Glycol (Miralax) 17 gm BEDTIME PRN GT Constipation 01/24/20 21:00 02/23/20 20:59 Quetiapine Fumarate (SEROqueL) 75 mg Q8HR GT 01/25/20 06:00 03/10/20 05:59 01/26/20 13:58 Aleisha Coronel MD Jan 26, 2020 14:38
--- NOTE | 2020-01-26 15:30 | NUR ---
NURSE NOTES: Tube feeding continues to run @ 60mL/hr. No residual noted. Pt tolerating well. Pt turned and repositioned. Pt remains on BL soft wrist restraints d/t trying to pull at medically necessary devices.
--- NOTE | 2020-01-26 17:08 | Nephrology Progress Note ---
Assessment/Plan Status: stable Assessment/Plan: A/P 1)CKD 3B - Cr 1.4 - Recheck am labs tomorrow 2) Atrial fibrillation RVR. On cardizem gtt - Congestive heart failure. - mgmt per cardiology 3) Resp FL- trached, COVID + - mgmt per ID - remains in isolation 4) Sepsis- Abx mgmt per ID Subjective Date patient seen: Jan 26, 2020 Time patient seen: 17:07 ROS Limited/Unobtainable: Yes Allergies: Coded Allergies: ERYTHROMYCIN BASE (Verified Allergy, Severe, 12/12/19) HALOPERIDOL (Verified Allergy, Unknown, 12/12/19) VANCOMYCIN (Unverified Adverse Reaction, Intermediate, Shortness of Breath, 12/12/19) Subjective Patient trached on the vent. Remains COVID isolation Objective Last 24 Hour Vital Signs Date Time Temp Pulse Resp B/P (MAP) Pulse Ox O2 Delivery O2 Flow Rate FiO2 01/26/20 16:00 40 01/26/20 16:00 Mechanical Ventilator 01/26/20 16:00 95 01/26/20 16:00 99.7 97 21 128/64 (85) 99 01/26/20 15:30 97 23 147/81 (103) 99 01/26/20 15:00 90 21 138/61 (86) 97 01/26/20 14:30 108 22 144/67 (92) 97 01/26/20 14:00 110 23 148/83 (104) 100 01/26/20 13:00 102 19 92/55 (67) 90 01/26/20 12:30 100 18 99 Mechanical Ventilator 40 99 18 01/26/20 12:00 Mechanical Ventilator 01/26/20 12:00 99.9 99 20 85/49 (61) 100 01/26/20 12:00 97 01/26/20 12:00 40 01/26/20 11:32 101 99/55 01/26/20 11:30 99 19 95/55 (68) 100 01/26/20 11:00 109 22 97/58 (71) 95 01/26/20 10:30 115 20 91/58 (69) 95 01/26/20 10:07 99.7 01/26/20 10:00 124 21 95/58 (70) 95 01/26/20 09:38 119 01/26/20 09:38 119 111/71 01/26/20 09:00 157 28 111/71 (84) 95 01/26/20 08:30 117 20 94/45 (61) 100 01/26/20 08:04 118 18 83/43 (56) 93 01/26/20 08:00 100.0 120 18 76/36 (49) 100 01/26/20 08:00 40 01/26/20 08:00 Mechanical Ventilator 01/26/20 08:00 117 01/26/20 07:53 119 20 100 Mechanical Ventilator 40 120 20 40 01/26/20 07:00 145 27 115/82 (93) 99 01/26/20 06:54 131 27 115/82 99 01/26/20 06:30 155 27 132/63 (86) 98 01/26/20 06:25 126 122/80 01/26/20 06:24 126 25 122/80 89 01/26/20 06:00 147 28 126/84 (98) 98 01/26/20 05:00 129 25 66/35 (45) 98 01/26/20 04:08 135 01/26/20 04:00 98.7 126 25 122/80 (94) 89 01/26/20 04:00 40 01/26/20 04:00 Mechanical Ventilator 01/26/20 03:32 106 32 40 01/26/20 03:30 121 21 106/69 (81) 91 01/26/20 03:00 113 25 93/69 (77) 01/26/20 02:24 105 01/26/20 02:00 109 21 121/70 (87) 01/26/20 01:00 97 19 127/63 (84) 01/26/20 00:56 104 22 100 Mechanical Ventilator 40 106 24 40 01/26/20 00:30 106 25 126/80 (95) 01/26/20 00:05 106 01/26/20 00:00 97 19 111/71 (84) 01/26/20 00:00 Mechanical Ventilator 01/26/20 00:00 40 01/25/20 23:42 99 120/59 01/25/20 23:30 99 20 120/59 (79) 01/25/20 23:29 110 21 40 01/25/20 23:00 111 23 129/67 (87) 100 01/25/20 22:00 99 23 99/70 (80) 96 01/25/20 21:02 92 01/25/20 21:00 96 19 111/61 (78) 98 01/25/20 20:56 107 01/25/20 20:45 115 28 116/74 100 01/25/20 20:29 115 01/25/20 20:15 113 28 116/74 100 01/25/20 20:15 113 116/74 01/25/20 20:00 40 01/25/20 20:00 98.0 106 21 115/63 (80) 94 01/25/20 20:00 Mechanical Ventilator 01/25/20 19:28 113 28 100 Mechanical Ventilator 40 115 30 40 01/25/20 19:14 104 01/25/20 19:00 118 26 116/74 (88) 99 01/25/20 18:05 110 116/66 01/25/20 18:00 104 20 116/66 (83) 99 Intake and Output 01/25/20 01/26/20 19:00 07:00 Intake Total 1589.285 ml 2100 ml Output Total 1650 ml 1350 ml Balance -60.715 ml 750 ml Free Water 400 ml 600 ml IV Total 469.285 ml 600 ml Tube Feeding 720 ml 720 ml Other 180 ml Output Urine Total 1650 ml 1300 ml Stool Total 50 ml Height (Feet): 5 Height (Inches): 6.00 Weight (Pounds): 343 Objective In COVID isolation. Poli Middleton MD Jan 26, 2020 17:08
--- NOTE | 2020-01-26 17:10 | NUR ---
NURSE NOTES: Ativan 1MG given for anxiety and restlessness. Will monitor.
--- NOTE | 2020-01-26 18:30 | NUR ---
NURSE NOTES: Pt fully cleaned and linens changed. Pt has a rectal tube in, draining stool to collection bag. Thermometer probe connected to the cooling machine reinserted and secured. No distress noted at this time.
--- NOTE | 2020-01-26 19:14 | NUR ---
NURSE HAND-OFF REPORT: Latest Vital Signs: Temperature 99.7 , Pulse 111 , B/P 145 /77 , Respiratory Rate 23 , O2 SAT 98 , Mechanical Ventilator, FiO2 40% . Vital Sign Comment: EKG Rhythm: Atrial Fibrillation Rhythm change?: N MD Notified?: Response: Latest Abreu Fall Score: 75 Fall Risk: High Risk Safety Measures: Call light Within Reach, Bed Alarm Zone 1, Side Rails Side Rails x3, Bed position Low and Locked. Fall Precautions: Yellow Socks Yellow Gown Door Sign Patient Fall Education Report given to NOEL Beth.
--- NOTE | 2020-01-26 19:30 | NUR ---
NURSE NOTES: Received report from NOEL Schaefer. Pt is resting on the bed and awake and confused and slight agitated. trach to Vent dependent and setting with AC: 18, T; 600, p:5, FiO2 40% ans SaO2 96-98%. Suction and oral care was done. Pt has G-tube and patent and running with Glucerna 1.2 @ 60cc/hr and no residual noted. On Lockett cath and patent and noted doretha color urine. Pt has rectal tube and patent and drainage well. Dressing is intact on wound area. On P-200 mattress for wound management. Noted BT 99.5 via rectal. Keep cooling measure with cooling blanket. Pt has Lt. upper arm PICC line and dressing is clean and dry. Pt has bilateral soft restraint. Checked comfort and circulation. Placed fall precaution. Will continue to care plan.
--- NOTE | 2020-01-26 19:42 | Cardiology Progress Note ---
Subjective DATE OF SERVICE: Jan 26, 2020 Remains in ICU in critical condition with guarded prognosis. Now s/p left thoracotomy/chest tube- since removed. Remains on vent support - s/p trach. BP range remaining low normal range. Remains COVID19 positive. Monitor: AFIb with slightly better rate control; IV Cardizem off, and patient digitalized. Venous Duplex: negative for DVT Renal fxn and free water deficit improved significantly Lactic acid level has normalized. Objective Last 24 Hour Vital Signs Date Time Temp Pulse Resp B/P (MAP) Pulse Ox O2 Delivery O2 Flow Rate FiO2 01/26/20 19:00 111 23 145/77 (99) 98 01/26/20 18:30 112 22 150/100 (117) 99 01/26/20 18:00 117 30 127/96 (106) 99 01/26/20 17:38 108 24 156/97 99 01/26/20 17:08 96 19 142/68 100 01/26/20 17:07 96 142/68 01/26/20 17:00 92 19 142/68 (92) 99 01/26/20 16:30 89 20 127/64 (85) 99 01/26/20 16:00 40 01/26/20 16:00 Mechanical Ventilator 01/26/20 16:00 95 01/26/20 16:00 99.7 97 21 128/64 (85) 99 01/26/20 15:45 87 22 40 01/26/20 15:30 97 23 147/81 (103) 99 01/26/20 15:00 90 21 138/61 (86) 97 01/26/20 14:30 108 22 144/67 (92) 97 01/26/20 14:00 110 23 148/83 (104) 100 01/26/20 13:00 102 19 92/55 (67) 90 01/26/20 12:30 100 18 99 Mechanical Ventilator 40 99 18 01/26/20 12:00 Mechanical Ventilator 01/26/20 12:00 99.9 99 20 85/49 (61) 100 01/26/20 12:00 97 01/26/20 12:00 40 01/26/20 11:32 101 99/55 01/26/20 11:30 99 19 95/55 (68) 100 01/26/20 11:00 109 22 97/58 (71) 95 01/26/20 10:30 115 20 91/58 (69) 95 01/26/20 10:07 99.7 01/26/20 10:00 124 21 95/58 (70) 95 01/26/20 09:38 119 01/26/20 09:38 119 111/71 01/26/20 09:00 157 28 111/71 (84) 95 01/26/20 08:30 117 20 94/45 (61) 100 01/26/20 08:04 118 18 83/43 (56) 93 01/26/20 08:00 100.0 120 18 76/36 (49) 100 01/26/20 08:00 40 01/26/20 08:00 Mechanical Ventilator 01/26/20 08:00 117 01/26/20 07:53 119 20 100 Mechanical Ventilator 40 120 20 40 01/26/20 07:00 145 27 115/82 (93) 99 01/26/20 06:54 131 27 115/82 99 01/26/20 06:30 155 27 132/63 (86) 98 01/26/20 06:25 126 122/80 01/26/20 06:24 126 25 122/80 89 01/26/20 06:00 147 28 126/84 (98) 98 01/26/20 05:00 129 25 66/35 (45) 98 01/26/20 04:08 135 01/26/20 04:00 98.7 126 25 122/80 (94) 89 01/26/20 04:00 40 01/26/20 04:00 Mechanical Ventilator 01/26/20 03:32 106 32 40 01/26/20 03:30 121 21 106/69 (81) 91 01/26/20 03:00 113 25 93/69 (77) 01/26/20 02:24 105 01/26/20 02:00 109 21 121/70 (87) 01/26/20 01:00 97 19 127/63 (84) 01/26/20 00:56 104 22 100 Mechanical Ventilator 40 106 24 40 01/26/20 00:30 106 25 126/80 (95) 01/26/20 00:05 106 01/26/20 00:00 97 19 111/71 (84) 01/26/20 00:00 Mechanical Ventilator 01/26/20 00:00 40 01/25/20 23:42 99 120/59 01/25/20 23:30 99 20 120/59 (79) 01/25/20 23:29 110 21 40 01/25/20 23:00 111 23 129/67 (87) 100 01/25/20 22:00 99 23 99/70 (80) 96 01/25/20 21:02 92 01/25/20 21:00 96 19 111/61 (78) 98 01/25/20 20:56 107 01/25/20 20:45 115 28 116/74 100 01/25/20 20:29 115 01/25/20 20:15 113 28 116/74 100 01/25/20 20:15 113 116/74 01/25/20 20:00 40 01/25/20 20:00 98.0 106 21 115/63 (80) 94 01/25/20 20:00 Mechanical Ventilator ROS: unchanged from 12/12/19 HEENT: Orally intubated, Mechanically Ventilated, Thin secretions ET Tube, other - NGtube RHYTHM: NSR, ST LUNGS: diminished breath sounds, right-sided rhonchi CARDIAC: normal S1 and S2, irregularly irregular ABDOMEN: other - obese EXTREMITIES: moderate edema - mostly non pitting, other - hematoma right leg Microbiology Date/Time Source Procedure Growth Status 01/24/20 19:40 Stool Clostridium difficile Toxin Assay - Final Complete Assessment/Plan Assessment/Plan CRITICAL AND GUARDED Left lung opacification - s/p chest tube placement 01/18/20. Acute respiratory failure - s/p trach Acute on chronic respiratory acidosis AFiB with labile heart rates, and now persistent RVR. CHF, ac/chr diastolic BLE edema Sepsis with shock obesity COPD with bronchospasm Acute renal failure - worsening Pleural effusion GI bleeding Anemia - multifactorial, now worse Covid 19 PNA Hyperkalemia Recurring lactic acidosis Dehydration/hypernatremia Hypertension/HHD with labile BP - now stable range. Vent support Chest tube management Titrate beta yves. Continue oral diltiazem and digitalis, now that renal fxn better. Hold diuretic dosing for 24hrs and reassess. Consider PRBC transfusion for hb below 7gm/dl Monitor acid/base parameters. Antimicrobials Lovenox added for cardioembolic prophyl - change to eliquis assisted. Continued surveillance system monitor Agree with DNR Jerome Meek MD Jan 26, 2020 19:42
[2020-01-26] MEDS: Dyna-Hex 2% Top Sol 2oz TOPIC SCH (19:44)
[2020-01-26] MEDS: Ascorbic Acid 500mg tab GT SCH (20:59)
--- NOTE | 2020-01-26 22:00 | NUR ---
NURSE NOTES: Pt is sleeping on the bed and no sign of acute distress noted. Tolerated well with current G-tube feeding. suction and oral care was done. Keep cooling measure. Changed position. will continue to monitor any change of condition.
[2020-01-27] VITALS (27 sets, daily range): BP systolic 101–174; BP diastolic 60–131
--- NOTE | 2020-01-27 00:21 | NUR ---
NURSE NOTES: Pt is resting on the bed. Noted Desaturation SaO2 84% on the monitor. Increase FiO2 100% and given tracheal and oral suction. Pt's code status is DNR. On classroom monitor with A-fib with Bradycardia and HR 42's and during 4-5 seconds no pulse checked but pulse is tuning back. Pt able to response to pain stimuli. Will informed MD. Will continue to monitor any change of condition.
--- NOTE | 2020-01-27 01:00 | NUR ---
NURSE NOTES: Pt is sleeping on the bed and able to response to pain stimuli. On bus monitor with A-fib and HR: 109's. SaO2 100% with current Vent setting and FiO2 100%. Given suction and oral care. No fever. Will continue to monitor any change of condition.
[2020-01-27] MEDS: Acetylcysteine 20% Soln 4ml HHN SCH ×3 (01:31→13:41)
[2020-01-27] MEDS: Ipratropium 0.02% Inh Soln 2.5ml UD HHN PRN ×3 (01:32→13:42)
--- NOTE | 2020-01-27 02:00 | NUR ---
NURSE NOTES: Pt is sleeping on the bed and able to response to pain stimuli. SaO2 100% with current Vent setting. Given suction and oral care. V/S is stable and on gambling monitor with A-Fib. changed position. Will continue to monitor any change of condition.
[2020-01-27] MEDS: Metoclopramide 10mg/2ml Inj IVP SCH ×3 (02:56→14:04)
--- NOTE | 2020-01-27 04:00 | NUR ---
NURSE NOTES: No sign of acute distress noted. SaO2 100% with Vent. No fever. On Lockett and drainage well. Provided suction and oral care. Turn and reposition. Changed wound dressing. Collected blood sample. Placed fall precaution. Will continue to care plan.
[2020-01-27 05:24] LABS: HEMATOCRIT 28.3 % (37.0-47.0); HEMOGLOBIN 9.2 G/DL (12.0-16.0); MEAN CORPUSCULAR VOLUME 90 FL (80-99); PLATELET COUNT 224 K/UL (150-450); RED BLOOD COUNT 3.15 M/UL (4.20-5.40); RED CELL DISTRIBUTION WIDTH 18.8 % (11.6-14.8); WHITE BLOOD COUNT 8.4 K/UL (4.8-10.8)
[2020-01-27] MEDS: dilTIAZem HCl 90mg tab ORAL SCH ×2 (05:45→11:17)
--- NOTE | 2020-01-27 06:00 | NUR ---
NURSE NOTES: suction and oral care was done. Changed position. V/S stable. SaO2 100% with current Vent setting. Will continue to monitor any change of condition.
[2020-01-27 06:05] LABS: ALBUMIN 1.6 G/DL (3.4-5.0); ALBUMIN/GLOBULIN RATIO 0.3 (1.0-2.7); BILIRUBIN,TOTAL 0.7 MG/DL (0.2-1.0); CREATININE 1.3 MG/DL (0.55-1.30); POTASSIUM 4.6 MMOL/L (3.5-5.1)
--- NOTE | 2020-01-27 07:15 | NUR ---
RD ASSESSMENT & RECOMMENDATIONS SEE CARE ACTIVITY FOR COMPLETE ASSESSMENT DAILY ESTIMATED NEEDS: Needs based on Obesity, Cardiac, DM, NATALIE, Critical Care/ 80.5kg abw 22-25kg/IBW (59kg) kcals/kg 1419-0721 total kcals 1-2 g protein/kg 80-161 g total protein 20-25 mL/kg 5153-6594 total fluid mLs NUTRITION DIAGNOSIS: 1) Class III Obesity R/T lifestyle factors? excessive energy intake as evidenced by pt w/ BMI >50, @ 245% IBW. 2) Altered nutrition related lab values R/T diabetes, altered lipid metabolism, cardiac hx, NATALIE as evidenced by A1C of 7.1, elev triglyceride 239-> wnl, elev BNP 4671->2682, elev creat (1.7->4.3 -> 1.7, elev BUN (92 -> 27-> 48 back up), elev K (5.4, 5.2 -> wnl->5.3-> wnl->5.8, Kdur dc'ed -> now wnl), 3) Swallowing difficulty R/T decreased cognitive fxn, respiratory status as evidenced by s/p NGT insertion (12/17), s/p worsening respiratoy status, Covid-19 postive, orally intubated (12/22), s/p trach placement (01/08), S/p PEG placement. CURRENT TF:Glucerna 1.5 @ 60ml/hr x 24 hrs ENTERAL NUTRITION RECOMMENDATIONS: Glucerna 1.5 @ 40ml/hr x 24 hrs + Prosource 1pkt BID to provide 960ml, 1440kcal, 79+22g prot, 729ml free water * LOWER TF rate to 40ml/hr x 24 hrs not to exceed kcal needs * ADD Prosource 1pkt BID to better meet protein needs * HOB over 30 degrees/ water flush per MD ADDITIONAL RECOMMENDATIONS: 1) Calibrated bedscale wt: fluctuating daily wts 2) Monitor renal fxn and lytes: creat stable 1.7-2.0 -> montor K (elev /, Kdur dc'ed) 3) Monitor BGs closely w/ Decadron, now off. 4) Feed at goal w/ hemodynamic stability -off pressor support 5) Wound healing: Cont vit C, add Armand BID .
--- NOTE | 2020-01-27 07:20 | NUR ---
NURSE HAND-OFF REPORT: Latest Vital Signs: Temperature 98.8 , Pulse 98 , B/P 141 /65 , Respiratory Rate 20 , O2 SAT 99 , Mechanical Ventilator, O2 Flow Rate . EKG Rhythm: Atrial Fibrillation Rhythm change?: N Latest Abreu Fall Score: 75 Fall Risk: High Risk Safety Measures: Call light Within Reach, Bed Alarm Zone 1, Side Rails Side Rails x3, Bed position Low and Locked. Fall Precautions: Yellow Socks Yellow Gown Door Sign Patient Fall Education Report given to NOEL Thompson. Pt is sleeping on the bed and no sign of acute distress noted. Noted BT: 98.0F by rectal.
--- NOTE | 2020-01-27 07:25 | NUR ---
NURSE NOTES: Received patient from Ignacia COHEN. Patient is awake, alert and oriented x1, A. Fib on the heart monitor, HR 92-99. Receiving oxygen via Shiley 8, vent settings: AC 18, TV 600, FiO2 80%, PEEP 5. IV site is Left Upper arm PICC, patent and intact. G-tube is intact and receiving Glucerna 1.2 at 60cc/hr. Lockett catheter is intact and draining. Rectal tube is intact and draining. Bed is locked, placed in lowest position, side rails up x3, bed alarm on, head of bed elevated. Will continue to monitor.
[2020-01-27] MEDS: Bacitracin Oint 15gm Tube TOPIC SCH (08:06)
[2020-01-27] MEDS: Pantoprazole Inj IVP SCH (08:07)
[2020-01-27] MEDS: Minocycline HCl 50mg cap ORAL SCH (08:07)
--- NOTE | 2020-01-27 08:07 | Pulmonolgy Critical Care Note ---
Luz Bowen [employer] 01/27/20 0807: Critical Care - Asmt/Plan Assessment/Plan: ASSESSMENT acute hypoxemic hypercapnic resp failure, requiring intubation 12/22 failure to wean s/p trach 01/08 COVID 19 PNA ( last test x 2 NGT) sepsis fungemia empyema s/p L thoracotomy 01/17, s/p removal UTI with E coli ESBL UTI VRE possible aspiration PNA - s/p treatment Moderate R pleural effusion s/p tap COPD Atrial fibrillation with RVR CHF Acute renal failure on CKD Severe anemia dysphagia, s/p PEG 01/08 Thrombocytopenia Status post ground fall Tobacco dependency Morbid obesity probable GARY R knee edema and hematoma, possible cellulitis Hyper Na due to free water deficit PLAN OF CARE s/p trach, prior not tolerated weaning trials; developed tachycardia /A fib with RVR weaned form Cardizem gtt , now low tachy, episode of resp distress , Fio2 again up to 80% ABG and CXR pending [id number] FiO2 to keep sat > 92% s/p tap 01/15 -500 ml pleural fluid pleural fl cx 01/15 E coli ESBL, GPC and yeast , glucose low -> c/w empyema abx as per ID recs s/p L thoracotomy 01/17 was on daily CXR while CT in, initially CT to Hemovac drainage, then to water seal, eventually was dc 01/21 CXR 01/22 -> Interim left chest tube removal. No pneumothorax Slightly increased right pleural effusion CXR 01/24 Right pleural effusion and bilateral interstitial and airspace parenchymal disease ->unchanged. CXR for this am pending CT chest was pending, cancelled for now, not stable for procedure for now repeated COVID 19 01/14 and 01/17 NGT s/p steroids IV ( started 12/23) continue for total of 10 days till 01/02 s/p Remdesivir (started 12/24 ), dc 12/30 initial diagnoses with COVID 19 at [facility] 11/29, was not hypoxic and not intubated, was not treated with Remdesivivr , only received empiric abx for PNA DVT prophylaxis with Lovenox on diuresis with Lasix, monitor volumes closely creat remains stable consider d/c Diamox afib rate control - off Cardizem gtt , s/p Dig earlier, further management as per cardio GI prophylaxis with PPI s/p PEG 01/09, asp precautions, severely leukopenic ? due to meds vs ? primary BM disease -resolved monitor counts immunofixation screen unremarkable transfuse to keep Hgb > 7 , s/p transfusion 01/13 previously evaluated by bioethics -> DNR/DNI status appropriate consider transfer to LTAC for further management case discussed and evaluated by supervising physician Critical Care - Objective Last 24 Hour Vital Signs Date Time Temp Pulse Resp B/P (MAP) Pulse Ox O2 Delivery O2 Flow Rate FiO2 01/27/20 07:06 98 20 91 Mechanical Ventilator 80 98 20 80 01/27/20 07:00 99 19 141/65 (90) 99 01/27/20 06:30 95 18 142/71 (94) 100 01/27/20 06:00 101 18 144/86 (105) 100 01/27/20 05:45 102 140/72 01/27/20 05:30 96 18 140/72 (94) 100 01/27/20 05:00 95 18 130/75 (93) 100 01/27/20 04:30 80 01/27/20 04:30 93 18 127/85 (99) 100 01/27/20 04:00 94 01/27/20 04:00 98.8 95 18 120/76 (91) 100 01/27/20 04:00 Mechanical Ventilator 01/27/20 04:00 100 01/27/20 03:30 97 18 117/63 (81) 100 01/27/20 03:06 99 18 40 01/27/20 03:00 98 18 127/71 (89) 100 01/27/20 02:30 96 18 123/62 (82) 100 01/27/20 02:00 98.4 98 18 119/77 (91) 100 01/27/20 01:46 96 18 100 Mechanical Ventilator 40 97 22 40 01/27/20 01:30 98 18 101/64 (76) 100 01/27/20 01:30 100 01/27/20 01:00 109 25 121/71 (88) 100 01/27/20 00:45 110 26 174/75 (108) 96 01/27/20 00:30 121 17 162/76 (104) 88 01/27/20 00:21 42 21 147/131 (136) 84 01/27/20 00:00 97.9 98 20 147/99 (115) 92 01/27/20 00:00 40 01/27/20 00:00 Mechanical Ventilator 01/26/20 23:37 97 146/91 01/26/20 23:30 98 21 146/91 (109) 94 01/26/20 23:00 92 19 142/75 (97) 95 01/26/20 22:58 95 23 40 01/26/20 22:30 99 21 128/80 (96) 95 01/26/20 22:00 90 18 140/86 (104) 96 01/26/20 21:30 103 20 136/80 (98) 98 01/26/20 21:00 104 18 131/66 (87) 98 01/26/20 20:59 108 159/98 01/26/20 20:30 129 24 159/98 (118) 96 01/26/20 20:00 91 01/26/20 20:00 Mechanical Ventilator 01/26/20 20:00 40 01/26/20 20:00 99.5 129 26 167/112 (130) 96 01/26/20 19:52 113 24 100 Mechanical Ventilator 40 115 22 40 01/26/20 19:00 111 23 145/77 (99) 98 01/26/20 18:30 112 22 150/100 (117) 99 01/26/20 18:00 117 30 127/96 (106) 99 01/26/20 17:38 108 24 156/97 99 01/26/20 17:08 96 19 142/68 100 01/26/20 17:07 96 142/68 01/26/20 17:00 92 19 142/68 (92) 99 01/26/20 16:30 89 20 127/64 (85) 99 01/26/20 16:00 40 01/26/20 16:00 Mechanical Ventilator 01/26/20 16:00 95 01/26/20 16:00 99.7 97 21 128/64 (85) 99 01/26/20 15:45 87 22 40 01/26/20 15:30 97 23 147/81 (103) 99 01/26/20 15:00 90 21 138/61 (86) 97 01/26/20 14:30 108 22 144/67 (92) 97 01/26/20 14:00 110 23 148/83 (104) 100 01/26/20 13:00 102 19 92/55 (67) 90 01/26/20 12:30 100 18 99 Mechanical Ventilator 40 99 18 01/26/20 12:00 Mechanical Ventilator 01/26/20 12:00 99.9 99 20 85/49 (61) 100 01/26/20 12:00 97 01/26/20 12:00 40 01/26/20 11:32 101 99/55 01/26/20 11:30 99 19 95/55 (68) 100 01/26/20 11:00 109 22 97/58 (71) 95 01/26/20 10:30 115 20 91/58 (69) 95 01/26/20 10:07 99.7 01/26/20 10:00 124 21 95/58 (70) 95 01/26/20 09:38 119 01/26/20 09:38 119 111/71 01/26/20 09:00 157 28 111/71 (84) 95 01/26/20 08:30 117 20 94/45 (61) 100 01/26/20 08:04 118 18 83/43 (56) 93 Objective: CONDITION: critical General Appearance: morbidly obese , awake, generalized anasarca ; on vent AC 600-18-80 % PEEP 5 Lines, tubes and drains: LUE PICC , intact HEENT: normocephalic, atraumatic, anicteric, Neck: trach with Shiley # 8, secretions with large amount, yellow color, thick consistency Respiratory/Chest: few isolated rhonchi , tachypneic Cardiovascular/Chest: irregularly irregular - A fib , low tachy , distant heart sounds, Abdomen: normal bowel sounds, non tender , obese, soft distended ; G tube with TF : Lockett Extremities: no calf tenderness, moderate edema - +3 BLE, R knee with large hematoma, edema, Skin Exam: warm/dry, multiple tattoos Neurologic: awake Musculoskeletal: normal muscle bulk Micro: Microbiology Date/Time Source Procedure Growth Status 01/24/20 19:40 Stool Clostridium difficile Toxin Assay - Final Complete Accucheck: 136 Critical Care - Subjective ROS Limited/Unobtainable: Yes Interval Events: episode of resp distress last night, FiO2 up to 80% currently CXR for this am pending fevers last evening and early night, resolved off Cardizem gtt creat down to 1.3 Condition: critical IV Access: PICC - LUE intact EKG Rhythm: Atrial Fibrillation - intermittent low tachy FI02: 80 Vent Support Breath Rate: 18 Vent Support Mode: AC Vent Tidal Volume: 600 Sputum Amount: Small PEEP: 5.0 PIP: 39 Tube Feeding Amount: 60 I&O: Intake and Output 01/26/20 01/27/20 19:00 07:00 Intake Total 1920 ml 1060 ml Output Total 895 ml 1380 ml Balance 1025 ml -320 ml Free Water 600 ml IV Total 300 ml 400 ml Tube Feeding 720 ml 660 ml Other 300 ml Output Urine Total 895 ml 1350 ml Stool Total 30 ml CXR: CXR 01/24 Right pleural effusion and bilateral interstitial and airspace parenchymal disease is unchanged. Tracheostomy remains Igor Carpio MD 01/27/20 1407: Critical Care - Asmt/Plan Assessment/Plan: Patient seen and examined with [employer]. Agree with above A&P as it reflects our joint deliberations. Luz Bowen NP Jan 27, 2020 08:07 Igor Carpio MD Jan 27, 2020 14:07
[2020-01-27] MEDS: Metoprolol Tartrate 50mg tab GT SCH (08:08)
[2020-01-27] MEDS: Digoxin 0.125mg tab GT SCH (08:08)
[2020-01-27] MEDS: Enoxaparin 60mg Inj SUBQ SCH (08:09)
--- NOTE | 2020-01-27 08:55 | NUR ---
NURSE NOTES: Medications given as prescribed, no adverse reaction noted. Oral care done and tracheal suctioning done, patient is non-productive. Patient is afebrile, no signs of pain based on FLACC score of 0, patient is resting comfortably in bed. Patient remains A. Fib HR 86-66, blood pressure is 166/58, Metoprolol 100mg given via G-tube.
[2020-01-27] MEDS ORDERED: Sterile Water Irrig 1000ml IRRIG ONE (09:17)
[2020-01-27] MEDS ORDERED: NS 275ml ONE (09:17)
[2020-01-27] MEDS ORDERED: Tubing IV Secondary IV ONE (09:17)
--- NOTE | 2020-01-27 10:26 | NUR ---
NURSE NOTES: Patient is resting in bed, awake. Remains A. Fib on the heart monitor, HR 110-124. Patient's O2 saturation at 100%. RT's are in the room to obtain ABG sample.
--- NOTE | 2020-01-27 10:33 | General Progress Note ---
Subjective ROS Limited/Unobtainable: No Allergies: Coded Allergies: ERYTHROMYCIN BASE (Verified Allergy, Severe, 12/12/19) HALOPERIDOL (Verified Allergy, Unknown, 12/12/19) VANCOMYCIN (Unverified Adverse Reaction, Intermediate, Shortness of Breath, 12/12/19) Objective Last 24 Hour Vital Signs Date Time Temp Pulse Resp B/P (MAP) Pulse Ox O2 Delivery O2 Flow Rate FiO2 01/27/20 10:29 119 20 80 01/27/20 10:00 106 21 149/130 (136) 100 01/27/20 09:00 89 18 121/66 (84) 100 01/27/20 08:08 104 01/27/20 08:08 149 144/76 01/27/20 08:00 Mechanical Ventilator 01/27/20 08:00 97.5 103 19 149/76 (100) 100 01/27/20 07:33 99 01/27/20 07:06 98 20 91 Mechanical Ventilator 80 98 20 80 01/27/20 07:00 99 19 141/65 (90) 99 01/27/20 06:30 95 18 142/71 (94) 100 01/27/20 06:00 101 18 144/86 (105) 100 01/27/20 05:45 102 140/72 01/27/20 05:30 96 18 140/72 (94) 100 01/27/20 05:00 95 18 130/75 (93) 100 01/27/20 04:30 80 01/27/20 04:30 93 18 127/85 (99) 100 01/27/20 04:00 94 01/27/20 04:00 98.8 95 18 120/76 (91) 100 01/27/20 04:00 Mechanical Ventilator 01/27/20 04:00 100 01/27/20 03:30 97 18 117/63 (81) 100 01/27/20 03:06 99 18 40 01/27/20 03:00 98 18 127/71 (89) 100 01/27/20 02:30 96 18 123/62 (82) 100 01/27/20 02:00 98.4 98 18 119/77 (91) 100 01/27/20 01:46 96 18 100 Mechanical Ventilator 40 97 22 40 01/27/20 01:30 98 18 101/64 (76) 100 01/27/20 01:30 100 01/27/20 01:00 109 25 121/71 (88) 100 01/27/20 00:45 110 26 174/75 (108) 96 01/27/20 00:30 121 17 162/76 (104) 88 01/27/20 00:21 42 21 147/131 (136) 84 01/27/20 00:00 97.9 98 20 147/99 (115) 92 01/27/20 00:00 40 01/27/20 00:00 Mechanical Ventilator 01/26/20 23:37 97 146/91 01/26/20 23:30 98 21 146/91 (109) 94 01/26/20 23:00 92 19 142/75 (97) 95 01/26/20 22:58 95 23 40 01/26/20 22:30 99 21 128/80 (96) 95 01/26/20 22:00 90 18 140/86 (104) 96 01/26/20 21:30 103 20 136/80 (98) 98 01/26/20 21:00 104 18 131/66 (87) 98 01/26/20 20:59 108 159/98 01/26/20 20:30 129 24 159/98 (118) 96 01/26/20 20:00 91 01/26/20 20:00 Mechanical Ventilator 01/26/20 20:00 40 01/26/20 20:00 99.5 129 26 167/112 (130) 96 01/26/20 19:52 113 24 100 Mechanical Ventilator 40 115 22 40 01/26/20 19:00 111 23 145/77 (99) 98 01/26/20 18:30 112 22 150/100 (117) 99 01/26/20 18:00 117 30 127/96 (106) 99 01/26/20 17:38 108 24 156/97 99 01/26/20 17:08 96 19 142/68 100 01/26/20 17:07 96 142/68 01/26/20 17:00 92 19 142/68 (92) 99 01/26/20 16:30 89 20 127/64 (85) 99 01/26/20 16:00 40 01/26/20 16:00 Mechanical Ventilator 01/26/20 16:00 95 01/26/20 16:00 99.7 97 21 128/64 (85) 99 01/26/20 15:45 87 22 40 01/26/20 15:30 97 23 147/81 (103) 99 01/26/20 15:00 90 21 138/61 (86) 97 01/26/20 14:30 108 22 144/67 (92) 97 01/26/20 14:00 110 23 148/83 (104) 100 01/26/20 13:00 102 19 92/55 (67) 90 01/26/20 12:30 100 18 99 Mechanical Ventilator 40 99 18 01/26/20 12:00 Mechanical Ventilator 01/26/20 12:00 99.9 99 20 85/49 (61) 100 01/26/20 12:00 97 01/26/20 12:00 40 01/26/20 11:32 101 99/55 01/26/20 11:30 99 19 95/55 (68) 100 01/26/20 11:00 109 22 97/58 (71) 95 Intake and Output 01/26/20 01/27/20 19:00 07:00 Intake Total 1920 ml 1060 ml Output Total 895 ml 1380 ml Balance 1025 ml -320 ml Free Water 600 ml IV Total 300 ml 400 ml Tube Feeding 720 ml 660 ml Other 300 ml Output Urine Total 895 ml 1350 ml Stool Total 30 ml Laboratory Tests 01/27/20 04:14: White Blood Count 8.4, Red Blood Count 3.15L, Hemoglobin 9.2L, Hematocrit 28.3L, Mean Corpuscular Volume 90, Mean Corpuscular Hemoglobin 29.2, Mean Corpuscular Hemoglobin Concent 32.5, Red Cell Distribution Width 18.8H, Platelet Count 224, Mean Platelet Volume 6.9, Neutrophils (%) (Auto) , Lymphocytes (%) (Auto) , Monocytes (%) (Auto) , Eosinophils (%) (Auto) , Basophils (%) (Auto) , Differential Total Cells Counted 100, Neutrophils % (Manual) 87H, Lymphocytes % (Manual) 7L, Monocytes % (Manual) 5, Eosinophils % (Manual) 1, Basophils % (Manual) 0, Band Neutrophils 0, Nucleated Red Blood Cells 2, Platelet Estimate Adequate, Platelet Morphology Normal, Polychromasia 2+, Anisocytosis 1+, Sodium Level 137, Potassium Level 4.6, Chloride Level 101, Carbon Dioxide Level 30, Anion Gap 7, Blood Urea Nitrogen 54H, Creatinine 1.3, Estimat Glomerular Filtration Rate 40.9, Glucose Level 135H, Calcium Level 9.0, Total Bilirubin 0.7, Aspartate Amino Transf (AST/SGOT) 16, Alanine Aminotransferase (ALT/SGPT) 7L, Alkaline Phosphatase 82, Total Protein 6.8, Albumin 1.6L, Globulin 5.2, Albumin/Globulin Ratio 0.3L, Digoxin Level 1.6 Height (Feet): 5 Height (Inches): 6.00 Weight (Pounds): 343 General Appearance: lethargic EENT: normal ENT inspection Neck: supple Cardiovascular: normal rate Respiratory/Chest: decreased breath sounds Abdomen: hypoactive bowel sounds Extremities: non-tender Assessment/Plan Problem List: (1) CKD (chronic kidney disease) stage 3, GFR 30-59 ml/min ICD Codes: N18.3 - Chronic kidney disease, stage 3 (moderate) SNOMED: 574132156 (2) COPD (chronic obstructive pulmonary disease) ICD Codes: J44.9 - Chronic obstructive pulmonary disease, unspecified SNOMED: 96872771 (3) Smoker ICD Codes: F17.200 - Nicotine dependence, unspecified, uncomplicated SNOMED: 16719986 (4) GERD (gastroesophageal reflux disease) ICD Codes: K21.9 - Gastro-esophageal reflux disease without esophagitis SNOMED: 350212803 (5) Atrial fibrillation with RVR ICD Codes: I48.91 - Unspecified atrial fibrillation SNOMED: 248833000122353 Status: stable Assessment/Plan: fu H&H monitor labs fu cardiology recs icu care ppi cbc in am s/p Trach and PEG GTF decrease GT flushes by half monitor for residuals Mervin Victoria MD Jan 27, 2020 10:33
[2020-01-27] MEDS: Multivitamins W/Minerals 15 ML UDC GT SCH (11:17)
--- NOTE | 2020-01-27 14:23 | Nephrology Progress Note ---
Assessment/Plan Status: stable Assessment/Plan: A/P 1)CKD 3B - Cr improved to 1.3 2) Atrial fibrillation RVR. On cardizem gtt - mgmt per cardiology 3) Resp FL- trached, COVID + - mgmt per ID - remains in isolation 4) Sepsis- Abx mgmt per ID Subjective Date patient seen: Jan 27, 2020 Time patient seen: 14:21 ROS Limited/Unobtainable: Yes Allergies: Coded Allergies: ERYTHROMYCIN BASE (Verified Allergy, Severe, 12/12/19) HALOPERIDOL (Verified Allergy, Unknown, 12/12/19) VANCOMYCIN (Unverified Adverse Reaction, Intermediate, Shortness of Breath, 12/12/19) Subjective Patient remains trached Objective Last 24 Hour Vital Signs Date Time Temp Pulse Resp B/P (MAP) Pulse Ox O2 Delivery O2 Flow Rate FiO2 01/27/20 13:43 99 19 98 Mechanical Ventilator 80 99 19 80 01/27/20 13:00 98 20 133/109 (117) 70 01/27/20 12:00 99.1 101 18 120/70 (87) 100 01/27/20 12:00 Mechanical Ventilator 01/27/20 12:00 80 01/27/20 11:17 99 149/130 01/27/20 11:00 106 17 132/60 (84) 100 01/27/20 10:29 119 20 80 01/27/20 10:00 106 21 149/130 (136) 100 01/27/20 09:00 89 18 121/66 (84) 100 01/27/20 08:08 104 01/27/20 08:08 149 144/76 01/27/20 08:00 Mechanical Ventilator 01/27/20 08:00 97.5 103 19 149/76 (100) 100 01/27/20 07:33 99 01/27/20 07:06 98 20 91 Mechanical Ventilator 80 98 20 80 01/27/20 07:00 99 19 141/65 (90) 99 01/27/20 06:30 95 18 142/71 (94) 100 01/27/20 06:00 101 18 144/86 (105) 100 01/27/20 05:45 102 140/72 01/27/20 05:30 96 18 140/72 (94) 100 01/27/20 05:00 95 18 130/75 (93) 100 01/27/20 04:30 80 01/27/20 04:30 93 18 127/85 (99) 100 01/27/20 04:00 94 01/27/20 04:00 98.8 95 18 120/76 (91) 100 01/27/20 04:00 Mechanical Ventilator 01/27/20 04:00 100 01/27/20 03:30 97 18 117/63 (81) 100 01/27/20 03:06 99 18 40 01/27/20 03:00 98 18 127/71 (89) 100 01/27/20 02:30 96 18 123/62 (82) 100 01/27/20 02:00 98.4 98 18 119/77 (91) 100 01/27/20 01:46 96 18 100 Mechanical Ventilator 40 97 22 40 01/27/20 01:30 98 18 101/64 (76) 100 01/27/20 01:30 100 01/27/20 01:00 109 25 121/71 (88) 100 01/27/20 00:45 110 26 174/75 (108) 96 01/27/20 00:30 121 17 162/76 (104) 88 01/27/20 00:21 42 21 147/131 (136) 84 01/27/20 00:00 97.9 98 20 147/99 (115) 92 01/27/20 00:00 40 01/27/20 00:00 Mechanical Ventilator 01/26/20 23:37 97 146/91 01/26/20 23:30 98 21 146/91 (109) 94 01/26/20 23:00 92 19 142/75 (97) 95 01/26/20 22:58 95 23 40 01/26/20 22:30 99 21 128/80 (96) 95 01/26/20 22:00 90 18 140/86 (104) 96 01/26/20 21:30 103 20 136/80 (98) 98 01/26/20 21:00 104 18 131/66 (87) 98 01/26/20 20:59 108 159/98 01/26/20 20:30 129 24 159/98 (118) 96 01/26/20 20:00 91 01/26/20 20:00 Mechanical Ventilator 01/26/20 20:00 40 01/26/20 20:00 99.5 129 26 167/112 (130) 96 01/26/20 19:52 113 24 100 Mechanical Ventilator 40 115 22 40 01/26/20 19:00 111 23 145/77 (99) 98 01/26/20 18:30 112 22 150/100 (117) 99 01/26/20 18:00 117 30 127/96 (106) 99 01/26/20 17:38 108 24 156/97 99 01/26/20 17:08 96 19 142/68 100 01/26/20 17:07 96 142/68 01/26/20 17:00 92 19 142/68 (92) 99 01/26/20 16:30 89 20 127/64 (85) 99 01/26/20 16:00 40 01/26/20 16:00 Mechanical Ventilator 01/26/20 16:00 95 01/26/20 16:00 99.7 97 21 128/64 (85) 99 01/26/20 15:45 87 22 40 01/26/20 15:30 97 23 147/81 (103) 99 01/26/20 15:00 90 21 138/61 (86) 97 01/26/20 14:30 108 22 144/67 (92) 97 Intake and Output 01/26/20 01/27/20 19:00 07:00 Intake Total 1920 ml 1060 ml Output Total 895 ml 1380 ml Balance 1025 ml -320 ml Free Water 600 ml IV Total 300 ml 400 ml Tube Feeding 720 ml 660 ml Other 300 ml Output Urine Total 895 ml 1350 ml Stool Total 30 ml Laboratory Tests 01/27/20 04:14: White Blood Count 8.4, Red Blood Count 3.15L, Hemoglobin 9.2L, Hematocrit 28.3L, Mean Corpuscular Volume 90, Mean Corpuscular Hemoglobin 29.2, Mean Corpuscular Hemoglobin Concent 32.5, Red Cell Distribution Width 18.8H, Platelet Count 224, Mean Platelet Volume 6.9, Neutrophils (%) (Auto) , Lymphocytes (%) (Auto) , Monocytes (%) (Auto) , Eosinophils (%) (Auto) , Basophils (%) (Auto) , Differential Total Cells Counted 100, Neutrophils % (Manual) 87H, Lymphocytes % (Manual) 7L, Monocytes % (Manual) 5, Eosinophils % (Manual) 1, Basophils % (Manual) 0, Band Neutrophils 0, Nucleated Red Blood Cells 2, Platelet Estimate Adequate, Platelet Morphology Normal, Polychromasia 2+, Anisocytosis 1+, Sodium Level 137, Potassium Level 4.6, Chloride Level 101, Carbon Dioxide Level 30, Anion Gap 7, Blood Urea Nitrogen 54H, Creatinine 1.3, Estimat Glomerular Filtration Rate 40.9, Glucose Level 135H, Calcium Level 9.0, Total Bilirubin 0.7, Aspartate Amino Transf (AST/SGOT) 16, Alanine Aminotransferase (ALT/SGPT) 7L, Alkaline Phosphatase 82, Total Protein 6.8, Albumin 1.6L, Globulin 5.2, Albumin/Globulin Ratio 0.3L, Digoxin Level 1.6 01/27/20 13:49: Arterial Blood pH 7.312L, Arterial Blood Partial Pressure CO2 58.3*H, Arterial Blood Partial Pressure O2 116.4H, Arterial Blood HCO3 28.8H, Arterial Blood Oxygen Saturation 97.7, Arterial Blood Base Excess 1.9, Eugene Test Positive Height (Feet): 5 Height (Inches): 6.00 Weight (Pounds): 343 Objective In COVID isolation. Poli Grant MD Jan 27, 2020 14:23
--- NOTE | 2020-01-27 14:35 | NUR ---
NURSE NOTES: ABG results reported to Luz Bowen NP.
--- NOTE | 2020-01-27 14:51 | Surgery Progress Note ---
Surgery Progress Note Subjective Procedure Performed left tube thoracotomy Additional Comments labs noted exam stable on support Objective Last 24 Hour Vital Signs Date Time Temp Pulse Resp B/P (MAP) Pulse Ox O2 Delivery O2 Flow Rate FiO2 01/27/20 14:00 95 18 134/68 (90) 01/27/20 13:43 99 19 98 Mechanical Ventilator 80 99 19 80 01/27/20 13:00 98 20 133/109 (117) 70 01/27/20 12:18 100 01/27/20 12:00 99.1 101 18 120/70 (87) 100 01/27/20 12:00 Mechanical Ventilator 01/27/20 12:00 80 01/27/20 11:17 99 149/130 01/27/20 11:00 106 17 132/60 (84) 100 01/27/20 10:29 119 20 80 01/27/20 10:00 106 21 149/130 (136) 100 01/27/20 09:00 89 18 121/66 (84) 100 01/27/20 08:08 104 01/27/20 08:08 149 144/76 01/27/20 08:00 Mechanical Ventilator 01/27/20 08:00 97.5 103 19 149/76 (100) 100 01/27/20 07:33 99 01/27/20 07:06 98 20 91 Mechanical Ventilator 80 98 20 80 01/27/20 07:00 99 19 141/65 (90) 99 01/27/20 06:30 95 18 142/71 (94) 100 01/27/20 06:00 101 18 144/86 (105) 100 01/27/20 05:45 102 140/72 01/27/20 05:30 96 18 140/72 (94) 100 01/27/20 05:00 95 18 130/75 (93) 100 01/27/20 04:30 80 01/27/20 04:30 93 18 127/85 (99) 100 01/27/20 04:00 94 01/27/20 04:00 98.8 95 18 120/76 (91) 100 01/27/20 04:00 Mechanical Ventilator 01/27/20 04:00 100 01/27/20 03:30 97 18 117/63 (81) 100 01/27/20 03:06 99 18 40 01/27/20 03:00 98 18 127/71 (89) 100 01/27/20 02:30 96 18 123/62 (82) 100 01/27/20 02:00 98.4 98 18 119/77 (91) 100 01/27/20 01:46 96 18 100 Mechanical Ventilator 40 97 22 40 01/27/20 01:30 98 18 101/64 (76) 100 01/27/20 01:30 100 01/27/20 01:00 109 25 121/71 (88) 100 01/27/20 00:45 110 26 174/75 (108) 96 01/27/20 00:30 121 17 162/76 (104) 88 01/27/20 00:21 42 21 147/131 (136) 84 01/27/20 00:00 97.9 98 20 147/99 (115) 92 01/27/20 00:00 40 01/27/20 00:00 Mechanical Ventilator 01/26/20 23:37 97 146/91 01/26/20 23:30 98 21 146/91 (109) 94 01/26/20 23:00 92 19 142/75 (97) 95 01/26/20 22:58 95 23 40 01/26/20 22:30 99 21 128/80 (96) 95 01/26/20 22:00 90 18 140/86 (104) 96 01/26/20 21:30 103 20 136/80 (98) 98 01/26/20 21:00 104 18 131/66 (87) 98 01/26/20 20:59 108 159/98 01/26/20 20:30 129 24 159/98 (118) 96 01/26/20 20:00 91 01/26/20 20:00 Mechanical Ventilator 01/26/20 20:00 40 01/26/20 20:00 99.5 129 26 167/112 (130) 96 01/26/20 19:52 113 24 100 Mechanical Ventilator 40 115 22 40 01/26/20 19:00 111 23 145/77 (99) 98 01/26/20 18:30 112 22 150/100 (117) 99 01/26/20 18:00 117 30 127/96 (106) 99 01/26/20 17:38 108 24 156/97 99 01/26/20 17:08 96 19 142/68 100 01/26/20 17:07 96 142/68 01/26/20 17:00 92 19 142/68 (92) 99 01/26/20 16:30 89 20 127/64 (85) 99 01/26/20 16:00 40 01/26/20 16:00 Mechanical Ventilator 01/26/20 16:00 95 01/26/20 16:00 99.7 97 21 128/64 (85) 99 01/26/20 15:45 87 22 40 01/26/20 15:30 97 23 147/81 (103) 99 01/26/20 15:00 90 21 138/61 (86) 97 I&O Intake and Output 01/26/20 01/27/20 19:00 07:00 Intake Total 1920 ml 1060 ml Output Total 895 ml 1380 ml Balance 1025 ml -320 ml Free Water 600 ml IV Total 300 ml 400 ml Tube Feeding 720 ml 660 ml Other 300 ml Output Urine Total 895 ml 1350 ml Stool Total 30 ml Dressing: saturated Cardiovascular: RSR Respiratory: decreased breath sounds Abdomen: soft, non-tender, present bowel sounds Extremities: edema, cyanosis Laboratory Tests Test 01/27/20 04:14 01/27/20 13:49 White Blood Count 8.4 K/UL (4.8-10.8) Red Blood Count 3.15 M/UL (4.20-5.40) L Hemoglobin 9.2 G/DL (12.0-16.0) L Hematocrit 28.3 % (37.0-47.0) L Mean Corpuscular Volume 90 FL (80-99) Mean Corpuscular Hemoglobin 29.2 PG (27.0-31.0) Mean Corpuscular Hemoglobin Concent 32.5 G/DL (32.0-36.0) Red Cell Distribution Width 18.8 % (11.6-14.8) H Platelet Count 224 K/UL (150-450) Mean Platelet Volume 6.9 FL (6.5-10.1) Neutrophils (%) (Auto) % (45.0-75.0) Lymphocytes (%) (Auto) % (20.0-45.0) Monocytes (%) (Auto) % (1.0-10.0) Eosinophils (%) (Auto) % (0.0-3.0) Basophils (%) (Auto) % (0.0-2.0) Differential Total Cells Counted 100 Neutrophils % (Manual) 87 % (45-75) H Lymphocytes % (Manual) 7 % (20-45) L Monocytes % (Manual) 5 % (1-10) Eosinophils % (Manual) 1 % (0-3) Basophils % (Manual) 0 % (0-2) Band Neutrophils 0 % (0-8) Nucleated Red Blood Cells 2 /100 WBC Platelet Estimate Adequate Platelet Morphology Normal Polychromasia 2+ Anisocytosis 1+ Sodium Level 137 MMOL/L (136-145) Potassium Level 4.6 MMOL/L (3.5-5.1) Chloride Level 101 MMOL/L (98-107) Carbon Dioxide Level 30 MMOL/L (21-32) Anion Gap 7 mmol/L (5-15) Blood Urea Nitrogen 54 mg/dL (7-18) H Creatinine 1.3 MG/DL (0.55-1.30) Estimat Glomerular Filtration Rate 40.9 mL/min (>60) Glucose Level 135 MG/DL (74-106) H Calcium Level 9.0 MG/DL (8.5-10.1) Total Bilirubin 0.7 MG/DL (0.2-1.0) Aspartate Amino Transf (AST/SGOT) 16 U/L (15-37) Alanine Aminotransferase (ALT/SGPT) 7 U/L (12-78) L Alkaline Phosphatase 82 U/L (46-116) Total Protein 6.8 G/DL (6.4-8.2) Albumin 1.6 G/DL (3.4-5.0) L Globulin 5.2 g/dL Albumin/Globulin Ratio 0.3 (1.0-2.7) L Digoxin Level 1.6 NG/ML (0.9-2.0) Arterial Blood pH 7.312 (7.350-7.450) Arterial Blood Partial Pressure CO2 58.3 mmHg (35.0-45.0) *H Arterial Blood Partial Pressure O2 116.4 mmHg (75.0-100.0) H Arterial Blood HCO3 28.8 mmol/L (22.0-26.0) H Arterial Blood Oxygen Saturation 97.7 % (95-100) Arterial Blood Base Excess 1.9 (-2-2) Eugene Test Positive Plan Problems: (1) Urinary tract infection (2) CHF exacerbation (3) History of schizophrenia (4) Atrial fibrillation with RVR (5) Schizophrenia (6) GERD (gastroesophageal reflux disease) (7) Smoker (8) Atrial fibrillation with rapid ventricular response (9) Lymphadema (10) COPD (chronic obstructive pulmonary disease) (11) CKD (chronic kidney disease) stage 3, GFR 30-59 ml/min (12) NATALIE (acute kidney injury) (13) Dehydration (14) Dysphagia (15) UTI (urinary tract infection) (16) UGI bleed (17) ESBL (extended spectrum beta-lactamase) producing bacteria infection (18) Constipation (19) Lactic acidosis (20) Tinea cruris (21) Onychomycosis (22) Emesis (23) Essential hypertension (24) Anemia (25) Cough (26) Depression (27) Depression (28) Edema (29) Rash (30) Opiate dependence (31) Opiate dependence (32) Opiate dependence (33) Opiate dependence (34) Pyelonephritis (35) Sepsis (36) UTI (urinary tract infection) (37) Nausea and vomiting (38) Abdominal pain Assessment & Plan: [age]-year-old female obese white abdominal pain deep tissue injury identified limited mobility on HD. KUB noted tube in place continue meds feeds Does not seem obstructed We will monitor lines noted. plan change resume tube feeds labs okay FINDINGS: Lower thorax: Obscuration of the left costophrenic angle suggestive of pleural effusion. Intraperitoneal space: No free air. Gastrointestinal tract: Unremarkable. No dilation. Bones/joints: Unremarkable. Tubes, lines and devices: The nasogastric tube has the tip at the mid inferior aspect of the gastric body. Other findings: Nonspecific gas pattern. Single frontal view of the abdomen demonstrates tip of the enteric tube and distal side-port projecting over the stomach. Gas is identified within the nondistended large bowel. There is a paucity of small bowel gas seen. Partially visualized left pleural effusion. No other significant interval change. (39) Chest pain (40) Chest pain (41) Nausea (42) Obesity (43) Chronic ulcer of leg (44) Chronic ulcer of leg (45) Chronic ulcer of leg (46) ACS (acute coronary syndrome) (47) Acute chest pain (48) Encounter for dressing change or suture removal (49) Left leg cellulitis (50) Acute encephalopathy (51) Encounter for wound re-check (52) Intractable nausea and vomiting (53) Infection due to ESBL-producing Escherichia coli (54) Chronic venous stasis (55) Change of dressing (56) Change of dressing (57) Change of dressing (58) Change of dressing (59) Change of dressing (60) Change of dressing (61) Change of dressing (62) Change of dressing (63) ESBL urine (64) Lymphadema (65) Lymphedema (66) Lymphedema (67) Lymphedema (68) Lymphedema (69) Lymphedema (70) Lymphedema (71) Lymphedema (72) Lymphedema (73) Open wound of foot (74) Open wound of foot (75) cellulitis (76) chronic lymphedema (77) chronic lymphedema (78) chronic lymphedema (79) hypertension uncontrolled (80) hypertension uncontrolled (81) Intertrigo (82) Sciatica (83) Cellulitis (84) Schizophrenia (85) Chronic bronchitis (86) HTN (hypertension) (87) Venous stasis ulcers (88) Medication refill (89) Chest pain, atypical (90) BMI 45.0-49.9, adult (91) Lymphedema of both lower extremities (92) hypertension uncontrolled (93) hypertension uncontrolled (94) hypertension uncontrolled (95) tenia corpus (96) Deep tissue injury Assessment & Plan: Morbidly obese pt whom presented on admission with Pressure injuries, Edemae bilat lower extremities eschar to dorsal aspects of metatarsals. Pt is very demanding of staff and can be resistive to repositionin g. DTPI noted to L Sacrum(L)5.5cm x (W)2.5cm. Base of Pressure Injury is Maroon and indurated with surrounding non-blanchable erythema DTPI R Sacrum(L)5.5cm x (W)2.3cm. Base of Pressure Injury is maroon with purpuric center that is fluctuant. Pt complained of tenderness when minimally palpated. Bilat lower extremities are edematous . Dry eschar noted to nail matrix and tip of L 1st metatarsal, Dorsal L 2nd metatarsal, R 2nd and R 4th metatarsals. Both heels are boggy with non-Blanchable erythema. blisters forming on Right lower extremity anterior tibia. not infected cellulitis / edema on b/l le stable cont abx Tx.Plan: Apply Moisture Barrier Paste to Sacrum R and L gluteal cheeks. Cover with Optifoam drsgs. Change every 3 days and prn. Apply Betadine to dry eschar metatarsals both feet Daily. Apply Cavilon Skin Barrier to both heels. Cover each heel with Optifoam drsgs. Change every 7days and prn. Reposition at least every 2hours or as tolerated. Off-load heels with pillow. right leg hematoma stable critically ill and edema on right leg has compromised dermis over the hematoma. will likely need debridement once improved (97) COVID-19 Assessment & Plan: ++ on vent weaning abx as per ID (98) Respiratory failure Assessment & Plan: not able to wean safely will plan for trach case discussed with medical team, pulm, icu. recommended to trach given medical condition. medically indicated and recommended. s/p trach 01/08 s/p trach more comfortable less agitated on vent weaning here is complete or near complete opacification of left hemithorax. There is increasing pleural fluid on the right. Interstitial and airspace disease on the right is unchanged. Tracheostomy is again demonstrated Impression: Complete or near complete opacification left hemithorax. This may indicate rapidly accumulating pleural effusion, versus atelectatic left lung. chest tube 01/17 left chest tube to water seal am cxr (99) Pneumonia Juan Manuel Buckner Jan 27, 2020 14:50
--- NOTE | 2020-01-27 15:43 | NUR ---
RESPIRATORY NOTE: Pt received on AC vent settings: 18, 600, 80%, +5. SpO2 and HR are within normal limits. Pt sleeping. Breathsounds bilateral rhonchi with equal chest rise. Suctioned small amount of white to pale yellow secretions. Trach secured and patent. Spare trach and ambu bag at bedside. Vent plugged into red outlet, alarms are on and audible. Will continue to monitor.
--- NOTE | 2020-01-27 15:58 | Cardiology Progress Note ---
Subjective DATE OF SERVICE: Jan 27, 2020 Remains in ICU in critical condition with guarded prognosis. Now s/p left thoracotomy/chest tube- since removed. Remains on vent support - s/p trach. 7./113 Remains COVID19 positive. Monitor: AFIb with better rate control; IV Cardizem off, and patient digitalized. Venous Duplex: negative for DVT Renal fxn and free water deficit improved significantly Lactic acid level has normalized, but increasingly prerenal state. Objective Last 24 Hour Vital Signs Date Time Temp Pulse Resp B/P (MAP) Pulse Ox O2 Delivery O2 Flow Rate FiO2 01/27/20 15:00 96 18 135/67 (89) 100 01/27/20 14:00 95 18 134/68 (90) 100 01/27/20 13:43 99 19 98 Mechanical Ventilator 80 99 19 80 01/27/20 13:00 98 20 133/109 (117) 100 01/27/20 12:18 100 01/27/20 12:00 99.1 101 18 120/70 (87) 100 01/27/20 12:00 Mechanical Ventilator 01/27/20 12:00 80 01/27/20 11:17 99 149/130 01/27/20 11:00 106 17 132/60 (84) 100 01/27/20 10:29 119 20 80 01/27/20 10:00 106 21 149/130 (136) 100 01/27/20 09:00 89 18 121/66 (84) 100 01/27/20 08:08 104 01/27/20 08:08 149 144/76 01/27/20 08:00 Mechanical Ventilator 01/27/20 08:00 97.5 103 19 149/76 (100) 100 01/27/20 07:33 99 01/27/20 07:06 98 20 91 Mechanical Ventilator 80 98 20 80 01/27/20 07:00 99 19 141/65 (90) 99 01/27/20 06:30 95 18 142/71 (94) 100 01/27/20 06:00 101 18 144/86 (105) 100 01/27/20 05:45 102 140/72 01/27/20 05:30 96 18 140/72 (94) 100 01/27/20 05:00 95 18 130/75 (93) 100 01/27/20 04:30 80 01/27/20 04:30 93 18 127/85 (99) 100 01/27/20 04:00 94 01/27/20 04:00 98.8 95 18 120/76 (91) 100 01/27/20 04:00 Mechanical Ventilator 01/27/20 04:00 100 01/27/20 03:30 97 18 117/63 (81) 100 01/27/20 03:06 99 18 40 01/27/20 03:00 98 18 127/71 (89) 100 01/27/20 02:30 96 18 123/62 (82) 100 01/27/20 02:00 98.4 98 18 119/77 (91) 100 01/27/20 01:46 96 18 100 Mechanical Ventilator 40 97 22 40 01/27/20 01:30 98 18 101/64 (76) 100 01/27/20 01:30 100 01/27/20 01:00 109 25 121/71 (88) 100 01/27/20 00:45 110 26 174/75 (108) 96 01/27/20 00:30 121 17 162/76 (104) 88 01/27/20 00:21 42 21 147/131 (136) 84 01/27/20 00:00 97.9 98 20 147/99 (115) 92 01/27/20 00:00 40 01/27/20 00:00 Mechanical Ventilator 01/26/20 23:37 97 146/91 01/26/20 23:30 98 21 146/91 (109) 94 01/26/20 23:00 92 19 142/75 (97) 95 01/26/20 22:58 95 23 40 01/26/20 22:30 99 21 128/80 (96) 95 01/26/20 22:00 90 18 140/86 (104) 96 01/26/20 21:30 103 20 136/80 (98) 98 01/26/20 21:00 104 18 131/66 (87) 98 01/26/20 20:59 108 159/98 01/26/20 20:30 129 24 159/98 (118) 96 01/26/20 20:00 91 01/26/20 20:00 Mechanical Ventilator 01/26/20 20:00 40 01/26/20 20:00 99.5 129 26 167/112 (130) 96 01/26/20 19:52 113 24 100 Mechanical Ventilator 40 115 22 40 01/26/20 19:00 111 23 145/77 (99) 98 01/26/20 18:30 112 22 150/100 (117) 99 01/26/20 18:00 117 30 127/96 (106) 99 01/26/20 17:38 108 24 156/97 99 01/26/20 17:08 96 19 142/68 100 01/26/20 17:07 96 142/68 01/26/20 17:00 92 19 142/68 (92) 99 01/26/20 16:30 89 20 127/64 (85) 99 01/26/20 16:00 40 01/26/20 16:00 Mechanical Ventilator 01/26/20 16:00 95 01/26/20 16:00 99.7 97 21 128/64 (85) 99 ROS: unchanged from 12/12/19 HEENT: Orally intubated, Mechanically Ventilated, Thin secretions ET Tube, other - NGtube RHYTHM: NSR, ST LUNGS: diminished breath sounds, right-sided rhonchi CARDIAC: normal S1 and S2, irregularly irregular ABDOMEN: other - obese EXTREMITIES: moderate edema - mostly non pitting, other - hematoma right leg Laboratory Tests Test 01/27/20 04:14 01/27/20 13:49 White Blood Count 8.4 K/UL (4.8-10.8) Red Blood Count 3.15 M/UL (4.20-5.40) L Hemoglobin 9.2 G/DL (12.0-16.0) L Hematocrit 28.3 % (37.0-47.0) L Mean Corpuscular Volume 90 FL (80-99) Mean Corpuscular Hemoglobin 29.2 PG (27.0-31.0) Mean Corpuscular Hemoglobin Concent 32.5 G/DL (32.0-36.0) Red Cell Distribution Width 18.8 % (11.6-14.8) H Platelet Count 224 K/UL (150-450) Mean Platelet Volume 6.9 FL (6.5-10.1) Neutrophils (%) (Auto) % (45.0-75.0) Lymphocytes (%) (Auto) % (20.0-45.0) Monocytes (%) (Auto) % (1.0-10.0) Eosinophils (%) (Auto) % (0.0-3.0) Basophils (%) (Auto) % (0.0-2.0) Differential Total Cells Counted 100 Neutrophils % (Manual) 87 % (45-75) H Lymphocytes % (Manual) 7 % (20-45) L Monocytes % (Manual) 5 % (1-10) Eosinophils % (Manual) 1 % (0-3) Basophils % (Manual) 0 % (0-2) Band Neutrophils 0 % (0-8) Nucleated Red Blood Cells 2 /100 WBC Platelet Estimate Adequate Platelet Morphology Normal Polychromasia 2+ Anisocytosis 1+ Sodium Level 137 MMOL/L (136-145) Potassium Level 4.6 MMOL/L (3.5-5.1) Chloride Level 101 MMOL/L (98-107) Carbon Dioxide Level 30 MMOL/L (21-32) Anion Gap 7 mmol/L (5-15) Blood Urea Nitrogen 54 mg/dL (7-18) H Creatinine 1.3 MG/DL (0.55-1.30) Estimat Glomerular Filtration Rate 40.9 mL/min (>60) Glucose Level 135 MG/DL (74-106) H Calcium Level 9.0 MG/DL (8.5-10.1) Total Bilirubin 0.7 MG/DL (0.2-1.0) Aspartate Amino Transf (AST/SGOT) 16 U/L (15-37) Alanine Aminotransferase (ALT/SGPT) 7 U/L (12-78) L Alkaline Phosphatase 82 U/L (46-116) Total Protein 6.8 G/DL (6.4-8.2) Albumin 1.6 G/DL (3.4-5.0) L Globulin 5.2 g/dL Albumin/Globulin Ratio 0.3 (1.0-2.7) L Digoxin Level 1.6 NG/ML (0.9-2.0) Arterial Blood pH 7.312 (7.350-7.450) Arterial Blood Partial Pressure CO2 58.3 mmHg (35.0-45.0) *H Arterial Blood Partial Pressure O2 116.4 mmHg (75.0-100.0) H Arterial Blood HCO3 28.8 mmol/L (22.0-26.0) H Arterial Blood Oxygen Saturation 97.7 % (95-100) Arterial Blood Base Excess 1.9 (-2-2) Eugene Test Positive Microbiology Date/Time Source Procedure Growth Status 01/24/20 19:40 Stool Clostridium difficile Toxin Assay - Final Complete Assessment/Plan Assessment/Plan CRITICAL AND GUARDED Left lung opacification - s/p chest tube placement 01/18/20. Acute respiratory failure - s/p trach Acute on chronic respiratory acidosis AFiB with labile heart rates, and now persistent RVR. CHF, ac/chr diastolic BLE edema Sepsis with shock obesity COPD with bronchospasm Acute renal failure - worsening Pleural effusion GI bleeding Anemia - multifactorial, now worse Covid 19 PNA Hyperkalemia Recurring lactic acidosis Dehydration/hypernatremia Hypertension/HHD with labile BP - now stable range. Vent support Decrease diuretic dosing Titrate beta yves. Continue oral diltiazem and digitalis, now that renal fxn better. Hold diuretic dosing for 24hrs and reassess. Consider PRBC transfusion for hb below 7gm/dl Monitor acid/base parameters. Antimicrobials Lovenox added for cardioembolic prophyl - change to [facility]. 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
--- NOTE | 2020-01-27 18:06 | NUR ---
NURSE NOTES: While cleaning patient, ventilator alarmed that patient was not receiving Volumes. Began bagging patient and called RT. Attempted to suction mucus plug out of patients trache with no success. O2 saturation began to fall down to 17% and Heart Rate went down to 40. Continuous bagging being done by RT and resistance was felt. Patient's HR decreased and went asystole, no pulse was found by primary RN or Charge nurse .Was pronounced by ED Ryan UNDERWOOD.
--- NOTE | 2020-01-27 18:28 | NUR ---
NURSE NOTES: [facility] was contacted. Spoke to Tatyana @ 1800. This will not be a [facility] Case Confirmation #[id number]. Retail Associate Manager [employer] was called and notified. Spoke to Trudy. This will not be a sales data analyst case. To release the remains, [facility] should be contacted at [phone] or [phone]. Dr. Grant was called as the Primary. Dr. Carpio was notified as well. Patient will be prepared and sent to [facility].
--- NOTE | 2020-01-28 09:55 | Emergency Room Report ---
Physical Exam Called to pronounce patient. At exam, O2 sat = 0%. Last 24 Hour Vital Signs Date Time Temp Pulse Resp B/P (MAP) Pulse Ox O2 Delivery O2 Flow Rate FiO2 01/27/20 17:00 102 18 129/70 (89) 100 01/27/20 16:00 Mechanical Ventilator 01/27/20 16:00 80 01/27/20 16:00 141 18 131/66 (87) 95 01/27/20 15:16 103 01/27/20 15:15 113 19 80 01/27/20 15:00 96 18 135/67 (89) 100 01/27/20 14:00 95 18 134/68 (90) 100 01/27/20 13:43 99 19 98 Mechanical Ventilator 80 99 19 80 01/27/20 13:00 98 20 133/109 (117) 100 01/27/20 12:18 100 01/27/20 12:00 99.1 101 18 120/70 (87) 100 01/27/20 12:00 Mechanical Ventilator 01/27/20 12:00 80 01/27/20 11:17 99 149/130 01/27/20 11:00 106 17 132/60 (84) 100 01/27/20 10:29 119 20 80 01/27/20 10:00 106 21 149/130 (136) 100 Sp02 EP Interpretation: reviewed, abnormal - as interpreted General Appearance: obese, other - unresponsive Eyes: bilateral eye other - pupils unreactive ENT: other Respiratory: other - resps with vent only Cardiovascular #1: other - asystole Cardiovascular #2: 0 radial (R) Gastrointestinal: overweight Rectal: other - rectal tube Genitourinary: other - trivedi Musculoskeletal: other - flaccid Neurologic: other - unrresponsive Skin: cyanosis, mottled, pallor, other - sallo Medical Decision Making Diagnostic Impression: Primary Impression: Respiratory failure Additional Impression: Pneumonia ER Course Called to pronounce patient. Patient without signs of life. Asystole on monitor. Pronounced at 18:00. Rhythm Strip Diag. Results EP Interpretation: yes Rhythm: other - asystole Disposition: Condition: Referrals: NOT CHOSEN IPA/,REFERRING (PCP) Patient Instructions: Diabetes [facility] Jerome Davis MD Jan 28, 2020 09:55
== END 2020-01-27 19:05 | disposition expired | DRG 5 ==
LOC: EDBEDREQ 20:35 → EMR 20:58 → EDBEDREQSVC 21:11 → 2E 21:16 → EDBEDREQ 22:22 → ICU 12-22 14:12
PROC: 0BH17EZ Insertion of Endotracheal Airway into Trachea, Via Natural or Artificial Opening (ICD-10-PCS; principal; 2019-12-23)
PROC: 5A1955Z Respiratory Ventilation, Greater than 96 Consecutive Hours (ICD-10-PCS; principal; 2019-12-23)
PROC: B547ZZA Ultrasonography of Left Subclavian Vein, Guidance (ICD-10-PCS; 2019-12-26)
PROC: 05H633Z Insertion of Infusion Device into Left Subclavian Vein, Percutaneous Approach (ICD-10-PCS; 2019-12-26)
PROC: 0B21XEZ Change Endotracheal Airway in Trachea, External Approach (ICD-10-PCS; 2019-12-31)
PROC: 02HV33Z Insertion of Infusion Device into Superior Vena Cava, Percutaneous Approach (ICD-10-PCS; 2019-12-31)
PROC: B548ZZA Ultrasonography of Superior Vena Cava, Guidance (ICD-10-PCS; 2019-12-31)
PROC: 0B110F4 Bypass Trachea to Cutaneous with Tracheostomy Device, Open Approach (ICD-10-PCS; 2020-01-09)
PROC: 0DH63UZ Insertion of Feeding Device into Stomach, Percutaneous Approach (ICD-10-PCS; 2020-01-10)
PROC: 0W993ZZ Drainage of Right Pleural Cavity, Percutaneous Approach (ICD-10-PCS; 2020-01-16)
PROC: 0W9B30Z Drainage of Left Pleural Cavity with Drainage Device, Percutaneous Approach (ICD-10-PCS; 2020-01-18)
DX: I48.0 Paroxysmal atrial fibrillation (principal); A41.51 Sepsis due to Escherichia coli [E. coli]; N39.0 Urinary tract infection, site not specified; I50.33 Acute on chronic diastolic (congestive) heart failure; N17.9 Acute kidney failure, unspecified; I13.0 Hypertensive heart and chronic kidney disease with heart failure and stage 1 through stage 4 chronic kidney disease, or unspecified chronic kidney disease; E66.01 Morbid (severe) obesity due to excess calories; F20.9 Schizophrenia, unspecified; Z59.0 Homelessness; Z79.01 Long term (current) use of anticoagulants; B96.20 Unspecified Escherichia coli [E. coli] as the cause of diseases classified elsewhere; K21.9 Gastro-esophageal reflux disease without esophagitis; N18.30 Chronic kidney disease, stage 3 unspecified; Z68.43 Body mass index [BMI] 50.0-59.9, adult; R65.21 Severe sepsis with septic shock; U07.1 COVID-19; J44.0 Chronic obstructive pulmonary disease with (acute) lower respiratory infection; J12.89 Other viral pneumonia; J96.02 Acute respiratory failure with hypercapnia; J96.01 Acute respiratory failure with hypoxia; J91.8 Pleural effusion in other conditions classified elsewhere; F17.200 Nicotine dependence, unspecified, uncomplicated; R26.9 Unspecified abnormalities of gait and mobility; B49 Unspecified mycosis; R07.89 Other chest pain; Z91.14 Patient's other noncompliance with medication regimen; R13.10 Dysphagia, unspecified; K92.2 Gastrointestinal hemorrhage, unspecified; E87.6 Hypokalemia; E87.0 Hyperosmolality and hypernatremia; E86.0 Dehydration; D64.9 Anemia, unspecified; Z99.11 Dependence on respirator [ventilator] status; S80.01XA Contusion of right knee, initial encounter; W06.XXXA Fall from bed, initial encounter; Y92.239 Unspecified place in hospital as the place of occurrence of the external cause; D61.818 Other pancytopenia; Z78.1 Physical restraint status; L89.156 Pressure-induced deep tissue damage of sacral region; L03.116 Cellulitis of left lower limb; L03.115 Cellulitis of right lower limb; B35.4 Tinea corporis
CPT/HCPCS: 36415; 36569; 36600; 70450; 71045; 74018; 76770; 76937; 76942; 80048; 80053; 80061; 80076; 80162; 80164; 81001; 81003; 82248; 82270; 82533; 82550; 82570; 82728; 82784; 82803; 82962; 83036; 83520; 83605; 83615; 83690; 83735; 83880; 83935; 83986; 84100; 84155; 84300; 84443; 84478; 84484; 84550; 85007; 85025; 85379; 85610; 85730; 86140; 86334; 86850; 86900; 86901; 86920; 87040; 87070; 87081; 87086; 87116; 87181; 87205; 87324; 89051; 93005; 93306; 93970; 94002; 94003; 94150; 94640; 94660; 94664; 96365; 96375; 99285; J1815; J2250; J2405; J2765; J3490; J7030; J7620; J8499; U0002